=== PATIENT | female | born 1990 | race Caucasian/White ===

== ENCOUNTER 2022-10-09 13:13 | Emergency (ER) | payer OTHER, SELFPAY ==
[2022-10-09 13:20] VITALS: BP 133/91; PULSE 76; RESP 20; TEMP 36.8; O2SAT 96; BMI 36.6
--- NOTE | 2022-10-09 13:52 | ED.GENADUL1 ---
HPI - General Adult General Chief complaint: Seizure Stated complaint: SEIZURE Time Seen by Provider: 10/09/22 13:48 Source: patient Mode of arrival: ambulance Limitations: no limitations History of Present Illness HPI narrative: patient was anxious today. She said that she is under a lot of stress She was driving home from work when her anxiety increased. She became dizzy. She pulled to the side of the road and then, according to bystander, had a 3 minute episode of seizure-like activity. PMHx includes pseudoseizures. She only takes Xanax and does not take any anti-seizure medications. At this time she admits to just kind of feeling shaky . She denied injuring her head, neck or back. She denied any nausea or vomiting. No recent illness. She said that she frequently gets UTIs without symptoms and asked that her urine be checked. Related Data Allergies Allergy/AdvReac Type Severity Reaction Status Date / Time nitrofurantoin Allergy Severe itching Verified 10/09/22 13:35 [From Macrobid] azithromycin [From Zithromax] Allergy Unknown Verified 10/09/22 13:20 ciprofloxacin [From Cipro] Allergy Unknown Verified 10/09/22 13:20 ketorolac [From Toradol] Allergy Unknown Verified 10/09/22 13:20 lorazepam [From Ativan] Allergy Unknown Verified 10/09/22 13:20 metoclopramide [From Reglan] Allergy Unknown Verified 10/09/22 13:20 Penicillins Allergy Unknown Verified 10/09/22 13:20 lorazepam AdvReac Severe irritable Uncoded 10/09/22 13:35 mood [facility] Medical History (Updated 10/09/22 @ 14:18 by Gaudencio Martinez) Surgical History (Updated 10/09/22 @ 14:07 by Joel Blanchard) Social History Smoking status: Never smoker Exam Narrative Exam Narrative: Nurses notes and vital signs reviewed and patient is not hypoxic. afebrile General: Well-appearing and in no apparent distress. Skin: Warm, dry, no pallor noted. No rash. Head: Normocephalic, atraumatic. Eye: Pupils are equal, round and EOMI. No scleral icterus. Cardiovascular: Regular Rate and Rhythm without murmur, gallop or rub. Respiratory: No accessory muscle use or respiratory distress. Lungs are clear to auscultation, no wheezing, rales or rhonchi Back: No midline thoracic or lumbar vertebral tenderness. No CVA tenderness Musculoskeletal: normal ROM, no sign of long bone fracture GI: Abdomen is soft, non-distended. Normal bowel sounds. No tenderness to palpation. No rebound, guarding, or rigidity noted. Neurological: A&O x4. No cranial nerve dysfunction observed. No truncal ataxia. Moves all extremities. Sensation intact. Psychiatric: Cooperative and interactive. Normal mood and affect. Constitutional Vital Signs - 24 hr 10/09/22 13:20 Temperature 98.3 F Pulse Rate [Monitor] 76 Respiratory Rate 20 Blood Pressure [Right Arm] 133/91 H Pulse Oximetry 96 Oxygen Delivery Method Room Air Course Vital Signs Vital signs: Vital Signs Temperature 98.3 F 10/09/22 13:20 Pulse Rate 76 10/09/22 13:20 Respiratory Rate 20 10/09/22 13:20 Blood Pressure 133/91 H 10/09/22 13:20 Pulse Oximetry 96 10/09/22 13:20 Oxygen Delivery Method Room Air 10/09/22 13:20 Temperature 98.3 F 10/09/22 13:20 Pulse Rate 76 10/09/22 13:20 Respiratory Rate 20 10/09/22 13:20 Blood Pressure 133/91 H 10/09/22 13:20 Pulse Oximetry 96 10/09/22 13:20 Oxygen Delivery Method Room Air 10/09/22 13:20 Medical Decision Making MDM Narrative Medical decision making narrative: seizure precautions were initiated while the patient was in the ED. Urine was collected and sent for testing. It was negative for infection. She was discharged home and can see her PCP for follow up as needed or return to the ED for any worrisome symptoms. She has xanax for her anxiety Lab Data Lab results reviewed: Yes I reviewed the patient's lab results Labs: Lab Results 10/09/22 Range/Units 13:50 Urine Color Lt. yellow (YELLOW) Urine Clarity Clear (CLEAR) Urine pH 6.5 (5.0-9.0) Ur Specific [place] <=1.005 A (1.005-1.025) Urine Protein Negative (NEG/TRACE) mg/dL Urine Glucose (UA) Negative (NEGATIVE) mg/dL Urine Ketones Negative (NEGATIVE) mg/dL Urine Occult Blood Negative (NEGATIVE) Urine Nitrite Negative (NEGATIVE) Urine Bilirubin Negative (NEGATIVE) Urine Urobilinogen 0.2 (0.2-1.0) EU/dL Ur Leukocyte Esterase Negative (NEGATIVE) Urine HCG, Qual Negative (NEGATIVE) Discharge Plan Discharge Chief Complaint: Seizure Clinical Impression: Psychogenic nonepileptic seizure, Anxiety Patient Disposition: Home, Self-Care Time of Disposition Decision: 14:16 Instructions: Anxiety (ED) Stand Alone Forms: Portal Instructions Referrals: MARIO GUAMAN [Primary Care Provider] - 1 week
[2022-10-09 14:08] LABS: Bilirubin Urine NEGATIVE (NEGATIVE); Blood Urine NEGATIVE (NEGATIVE); Clarity Urine CLEAR (CLEAR); Color Urine LT. YELLOW (YELLOW); Glucose Urine UA NEGATIVE (NEGATIVE); Ketones Urine NEGATIVE (NEGATIVE); Leukocyte Esterase Urine NEGATIVE (NEGATIVE); Nitrite Urine NEGATIVE (NEGATIVE); Protein Urine NEGATIVE (NEG/TRACE); Specific Gravity Urine <=1.005 (1.005-1.025); Urine Microscopic Indicated NO; Urobilinogen Urine 0.2 EU/dL (0.2-1.0); pH Urine 6.5 (5.0-9.0)
[2022-10-09 14:10] LABS: HCG Qualitative Urine* NEGATIVE (NEGATIVE)
[2022-10-09 14:26] VITALS: BP 128/86; PULSE 74; RESP 17; O2SAT 100
== END 2022-10-09 14:36 | disposition home or self-care (01) ==
PROVIDERS: Emergency Provider Emergency Medicine; PCP Family Medicine
DX: F41.9 Anxiety disorder, unspecified (principal); R56.9 Unspecified convulsions; Z87.440 Personal history of urinary (tract) infections; Z79.899 Other long term (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 therapy
CPT/HCPCS: 81003; 84703; 99283

== ENCOUNTER 2022-11-17 19:36 | Emergency (ER) | payer OTHER, SELFPAY ==
[2022-11-17 19:39] VITALS: BP 132/98; PULSE 76; RESP 16; TEMP 36.6; O2SAT 98; BMI 37.6
--- NOTE | 2022-11-17 19:54 | CT_ITS ---
[address] [address] Patient Name: TICO ENRIQUEZ MRN: [id number] date: 1990 Sex: F Assigned Patient Location: ER Current Patient Location: ER Accession/Order Number: [id number] Exam Date: 11/17/2022 20:23 Report Date: 11/17/2022 21:36 At the request of: JENIFER JACKSON Procedure: CT abdomen pelvis wo con CT SCAN OF THE ABDOMEN AND PELVIS WITHOUT CONTRAST, 11/17/2022 8:23 PM EDT COMPARISON: Scan of the abdomen and pelvis, 06/17/2021. CLINICAL HISTORY: right flank pain, right lower quadrant history of stones. TECHNIQUE: 3 mm axial images performed through the abdomen and pelvis without contrast. 3 mm sagittal and coronal MPR reconstructions performed. Dose reduction techniques were achieved by using automated exposure control and/or adjustment of mA and/or kV according to patient size and/or use of iterative reconstruction technique. ABDOMINAL CT SCAN FINDINGS: Lung bases are clear. Visualized heart is normal in size with no pericardial effusion. No renal or ureteral calculi identified. There is some mild right pelvicalyceal dilatation. Remaining nonenhanced abdominal solid organs and gallbladder unremarkable in appearance. Moderate to large amount of fecal matter in the colon bordering on early pattern of constipation. Retrocecal appendix is normal. Pelvic CT findings: Patient has had a hysterectomy since the prior exam. Some physiologic free fluid in the rectovesicular pouch. Urinary bladder is unremarkable in appearance. No acute osseous abnormality. CT/CT abdomen pelvis wo con IMPRESSION: 1. No renal or ureteral calculi identified. Mild right pelvicalyceal dilatation may be a transient phenomena. 2. Moderate to large amount of fecal matter in the colon bordering on early pattern of constipation. Retrocecal appendix is normal. 3. Patient has had hysterectomy since the prior exam. Some physiologic free fluid in the rectovesicular pouch. Electronically authenticated by: Chalo VELAZQUEZ Date: 11/17/2022 21:36
--- NOTE | 2022-11-17 19:56 | ED.GENADUL1 ---
Documented by User: SIVAN Pedro 11/17/22 20:39 HPI - General Adult General Chief complaint: Abdominal Pain Stated complaint: flank pain Time Seen by Provider: 11/17/22 19:43 Source: patient Mode of arrival: walk-in History of Present Illness HPI narrative: patient is a 32-year-old female presents to the Emergency Room with concerns of right flank pain and right lower quadrant abdominal pain. Patient states symptoms started two weeks ago, progressively worsening. Throbbing aching diffuse across her right mid back and right lower quadrant. Patient notes the pain radiates around to the front associated with nausea. Patient states she has had prior hysterectomy and denies chance of . She denies any vaginal discharge or dysuria other than some frequency. Patient states she has prior history of kidney stones,kidney infection prior nephrostomy tube, and ovarian cysts. Patient notes that she still has her appendix as well. She denies any fevers or chills but has been using a heating pad on her lower back to the point that the skin is now ecchymotic. Patient had previous treatment with Dr. Chavez regarding kidney stones Onset (ago): week(s) (2) Location: Reports abdomen Radiation: Reports back Pain Consistency: Denies constant Relieving factors: Reports none Related Data Home Medications Medication Instructions Recorded Confirmed alprazolam 2 mg tablet 2 mg PO .2 times a day PRN anxiety 11/17/22 11/17/22 phentermine 37.5 mg tablet 37.5 mg PO QDAY 11/17/22 11/17/22 tizanidine 4 mg tablet 4 mg PO Q12H PRN muscle spasticity 11/17/22 11/17/22 Previous Rx's Medication Instructions Recorded bisacodyl 5 mg tablet,delayed 5 mg PO BID PRN constipation #14 11/17/22 release (Dulcolax (bisacodyl)) tabs pantoprazole 40 mg granules 40 mg PO DAILY 30 days #30 ea 11/17/22 delayed-release for susp in packet Allergies Allergy/AdvReac Type Severity Reaction Status Date / Time nitrofurantoin Allergy Severe itching Verified 10/09/22 13:35 [From Macrobid] azithromycin [From Zithromax] Allergy Unknown Verified 10/09/22 13:20 ciprofloxacin [From Cipro] Allergy Unknown Verified 10/09/22 13:20 ketorolac [From Toradol] Allergy Unknown Verified 10/09/22 13:20 lorazepam [From Ativan] Allergy Unknown Verified 10/09/22 13:20 metoclopramide [From Reglan] Allergy Unknown Verified 10/09/22 13:20 Penicillins Allergy Unknown Verified 10/09/22 13:20 lorazepam AdvReac Severe irritable Uncoded 10/09/22 13:35 mood Review of Systems ROS Constitutional Denies: fever or chills Ears, nose, mouth, and throat Denies: throat pain Cardiovascular Denies: chest pain Respiratory Denies: shortness of breath or cough Gastrointestinal Reports: abdominal pain and nausea; Denies: vomiting Genitourinary Reports: urinary frequency Musculoskeletal Reports: back pain; Denies: neck pain or extremity pain Neurological Denies: headache Psychiatric Denies: anxiety Endocrine Denies: excessive urination [facility] Medical History (Updated 11/17/22 @ 22:13 by Aminata Collins MD) Surgical History (Updated 10/09/22 @ 14:07 by Joel Blanchard) Social History Smoking status: Never smoker Exam Narrative Exam Narrative: Nurses notes and vital signs reviewed and patient is not hypoxic. General: The patient appears well and in no apparent distress. Skin: Warm, dry, no pallor noted.ecchymotic changes to her lower back from self-admitted overuse of heating pad. Remote scar from right nephrostomy tube noted Head: Normocephalic, atraumatic Neck: Supple, trachea mid-line, no tenderness, no lymphadenopathy Eye: Pupils are equal, round and reactive to light, EOMI Ears, Nose, Mouth, and Throat: TM are clear, normal light reflex, oral mucosa is moist, no posterior oropharynx erythema or hypertrophy, uvula is mid-line Cardiovascular: Regular Rate and Rhythm Respiratory: Patient is in no distress, no accessory muscle use, lungs are clear to auscultation, no wheezing, rales or rhonchi. Chest Wall: no tenderness Back: mild diffuse lower lumbar tenderness with notable right CVA tenderness Musculoskeletal: normal ROM, no tenderness, no swelling GI: bowel sounds present, no guarding or rebound but tenderness appreciated in the right mid and right lower quadrant. Patient does have some tenderness at McBurney's point. Neurological: A&O x4 Psychiatric: Cooperative Constitutional Vital Signs, click to edit/add: Last Vital Signs Temp 97.9 F 11/17/22 19:39 Pulse 68 11/17/22 22:23 Resp 16 11/17/22 22:23 BP 138/88 11/17/22 22:23 Pulse Ox 99 11/17/22 22:23 O2 Del Method Room Air 11/17/22 22:23 Course Vital Signs Vital signs: Vital Signs Temperature 97.9 F 11/17/22 19:39 Pulse Rate 76 11/17/22 19:39 Respiratory Rate 16 11/17/22 19:39 Blood Pressure 132/98 H 11/17/22 19:39 Pulse Oximetry 98 11/17/22 19:39 Oxygen Delivery Method Room Air 11/17/22 19:39 Temperature 97.9 F 11/17/22 19:39 Pulse Rate 68 11/17/22 22:23 Respiratory Rate 16 11/17/22 22:23 Blood Pressure 138/88 11/17/22 22:23 Pulse Oximetry 99 11/17/22 22:23 Oxygen Delivery Method Room Air 11/17/22 22:23 Medical Decision Making MDM Narrative Medical decision making narrative: discussed patient's presentation, concern for right flank pain, progressive symptoms over two weeks and patient's prior history of surgery, kidney stones and kidney infection. Patient has multiple antibiotic ALLERGIES. Risks and benefits of CT discussed and patient agreeable. Patient given 4 mg IV Zofran and 4 mg IV morphine. Lab Data Labs: Lab Results 11/17/22 Range/Units 20:24 WBC 6.7 (4.0-11.0) 10^3/uL RBC 4.36 (4.20-5.40) 10^6/uL Hgb 13.8 (12.0-16.0) g/dL Hct 41.0 (36.0-48.0) % MCV 94.0 (81.0-99.0) fL MCH 31.7 (26.7-34.0) pg MCHC 33.7 (29.9-35.2) g/dL RDW 12.0 (11.0-15.0) % Plt Count 184 (150-450) 10^3/uL MPV 10.8 (9.5-13.5) fL Neut % (Auto) 41.7 L (43.0-75.0) % Lymph % (Auto) 47.4 (20.5-60.0) % Cassia % (Auto) 8.5 (1.7-12.0) % Eos % (Auto) 1.6 (0.9-7.0) % Baso % (Auto) 0.7 (0.2-2.0) % Neut # (Auto) 2.8 (1.4-6.5) 10^3/uL Lymph # (Auto) 3.2 (1.2-3.8) 10^3/uL Cassia # (Auto) 0.6 (0.3-0.8) 10^3/uL Eos # (Auto) 0.1 (0.0-0.7) 10^3/uL Baso # (Auto) 0.1 (0.0-0.1) 10^3/uL Abs Immat Gran (auto) 0.01 (0.00-0.03) 10^3/uL Imm/Tot Granulo (auto) 0.1 (0.0-0.5) % Sodium 140 (136-145) mmol/L Potassium 3.4 L (3.5-5.1) mmol/L Chloride 103 (98-107) mmol/L Carbon Dioxide 23.7 (21.0-32.0) mmol/L Anion Gap 16.7 BUN 9.0 (7.0-18.0) mg/dL Creatinine 0.99 (0.55-1.02) mg/dL Est GFR ( Amer) >60 (>=60) Est GFR (Non-Af Amer) >60 (>=60) BUN/Creatinine Ratio 9.1 Glucose 105 (74-106) mg/dL Lactate 0.9 (0.4-2.0) mmol/L Calcium 8.5 (8.5-10.1) mg/dL Total Bilirubin 0.2 (0.2-1.0) mg/dL AST 12 L (15-37) U/L ALT 32 (14-59) U/L Alkaline Phosphatase 54 (46-116) U/L Total Protein 7.8 (6.4-8.2) g/dL Albumin 4.0 (3.4-5.0) g/dL Globulin 3.8 g/dL Albumin/Globulin Ratio 1.1 Lipase 76.0 (73.0-393.0) U/L Urine Color Yellow (YELLOW) Urine Clarity Clear (CLEAR) Urine pH 6.0 (5.0-9.0) Ur Specific [place] 1.025 (1.005-1.025) Urine Protein Negative (NEG/TRACE) mg/dL Urine Glucose (UA) Negative (NEGATIVE) mg/dL Urine Ketones Negative (NEGATIVE) mg/dL Urine Occult Blood Negative (NEGATIVE) Urine Nitrite Negative (NEGATIVE) Urine Bilirubin Negative (NEGATIVE) Urine Urobilinogen 0.2 (0.2-1.0) EU/dL Ur Leukocyte Esterase Negative (NEGATIVE) Discharge Plan Discharge Chief Complaint: Abdominal Pain Clinical Impression: Acute abdominal pain in right flank, Constipation Patient Disposition: Home, Self-Care Time of Disposition Decision: 22:12 Prescriptions / Home Meds: New pantoprazole [address] for susp in packet 40 mg PO DAILY 30 Days Qty: 30 0RF bisacodyl [Dulcolax (bisacodyl)] 5 mg tablet,delayed release (DR/EC) 5 mg PO BID PRN (Reason: constipation) Qty: 14 0RF No Action phentermine 37.5 mg tablet 37.5 mg PO QDAY alprazolam 2 mg tablet 2 mg PO .2 times a day PRN (Reason: anxiety) tizanidine 4 mg tablet 4 mg PO Q12H PRN (Reason: muscle spasticity) Instructions: Constipation (ED) Stand Alone Forms: Portal Instructions Referrals: MARIO GUAMAN [Primary Care Provider] - 1 week Discharge Date/Time: 11/17/22 22:26 Documented by User: Aminata Collins MD 11/17/22 22:40 HPI - General Adult General Chief complaint: Abdominal Pain Stated complaint: flank pain Time Seen by Provider: 11/17/22 19:43 Related Data Home Medications Medication Instructions Recorded Confirmed alprazolam 2 mg tablet 2 mg PO .2 times a day PRN anxiety 11/17/22 11/17/22 phentermine 37.5 mg tablet 37.5 mg PO QDAY 11/17/22 11/17/22 tizanidine 4 mg tablet 4 mg PO Q12H PRN muscle spasticity 11/17/22 11/17/22 Previous Rx's Medication Instructions Recorded bisacodyl 5 mg tablet,delayed 5 mg PO BID PRN constipation #14 11/17/22 release (Dulcolax (bisacodyl)) tabs pantoprazole 40 mg granules 40 mg PO DAILY 30 days #30 ea 11/17/22 delayed-release for susp in packet Allergies Allergy/AdvReac Type Severity Reaction Status Date / Time nitrofurantoin Allergy Severe itching Verified 10/09/22 13:35 [From Macrobid] azithromycin [From Zithromax] Allergy Unknown Verified 10/09/22 13:20 ciprofloxacin [From Cipro] Allergy Unknown Verified 10/09/22 13:20 ketorolac [From Toradol] Allergy Unknown Verified 10/09/22 13:20 lorazepam [From Ativan] Allergy Unknown Verified 10/09/22 13:20 metoclopramide [From Reglan] Allergy Unknown Verified 10/09/22 13:20 Penicillins Allergy Unknown Verified 10/09/22 13:20 lorazepam AdvReac Severe irritable Uncoded 10/09/22 13:35 mood [facility] Medical History (Updated 11/17/22 @ 22:13 by Aminata Collins MD) Surgical History (Updated 10/09/22 @ 14:07 by Joel Blanchard) Social History Smoking status: Never smoker Exam Constitutional Vital Signs, click to edit/add: Last Vital Signs Temp 97.9 F 11/17/22 19:39 Pulse 68 11/17/22 22:23 Resp 16 11/17/22 22:23 BP 138/88 11/17/22 22:23 Pulse Ox 99 11/17/22 22:23 O2 Del Method Room Air 11/17/22 22:23 Course Vital Signs Vital signs: Vital Signs Temperature 97.9 F 11/17/22 19:39 Pulse Rate 76 11/17/22 19:39 Respiratory Rate 16 11/17/22 19:39 Blood Pressure 132/98 H 11/17/22 19:39 Pulse Oximetry 98 11/17/22 19:39 Oxygen Delivery Method Room Air 11/17/22 19:39 Temperature 97.9 F 11/17/22 19:39 Pulse Rate 68 11/17/22 22:23 Respiratory Rate 16 11/17/22 22:23 Blood Pressure 138/88 11/17/22 22:23 Pulse Oximetry 99 11/17/22 22:23 Oxygen Delivery Method Room Air 11/17/22 22:23 Medical Decision Making MDM Narrative Medical decision making narrative: discussed patient's presentation, concern for right flank pain, progressive symptoms over two weeks and patient's prior history of surgery, kidney stones and kidney infection. Patient has multiple antibiotic ALLERGIES. Risks and benefits of CT discussed and patient agreeable. Patient given 4 mg IV Zofran and [address] Collins : The patient CAT scan shows only constipation with moderate to large amount of stool and appendix was normal in addition to no kidney stone Right now the patient was still complaining of nausea and vomiting she mentioned that she has been having the pain for 2 weeks and she been having normal diet The patient is allergic to a lot of medication she added Toradol and Bentyl to the allergies although they were not mentioned initially The patient was treated with Pepcid as well as Compazine in the ER and tramadol 1 pill after reviewing her opiate intake The patient right now was discharged home with Dulcolax as well as pantoprazole instructed to hydrate very well and to come back to us in case of any new symptoms and to follow-up with her primary care doctor within 2 days and the patient agree with above-mentioned plan and The patient is to follow up with primary care physician in next 2-3 days or to return to the emergency department should any of the signs or symptoms worsen or new symptoms develop. The patient agrees with the following Diagnosis and Treatment plan and the patient will be discharged home. Lab Data Labs: Lab Results 11/17/22 Range/Units 20:24 WBC 6.7 (4.0-11.0) 10^3/uL RBC 4.36 (4.20-5.40) 10^6/uL Hgb 13.8 (12.0-16.0) g/dL Hct 41.0 (36.0-48.0) % MCV 94.0 (81.0-99.0) fL MCH 31.7 (26.7-34.0) pg MCHC 33.7 (29.9-35.2) g/dL RDW 12.0 (11.0-15.0) % Plt Count 184 (150-450) 10^3/uL MPV 10.8 (9.5-13.5) fL Neut % (Auto) 41.7 L (43.0-75.0) % Lymph % (Auto) 47.4 (20.5-60.0) % Cassia % (Auto) 8.5 (1.7-12.0) % Eos % (Auto) 1.6 (0.9-7.0) % Baso % (Auto) 0.7 (0.2-2.0) % Neut # (Auto) 2.8 (1.4-6.5) 10^3/uL Lymph # (Auto) 3.2 (1.2-3.8) 10^3/uL Cassia # (Auto) 0.6 (0.3-0.8) 10^3/uL Eos # (Auto) 0.1 (0.0-0.7) 10^3/uL Baso # (Auto) 0.1 (0.0-0.1) 10^3/uL Abs Immat Gran (auto) 0.01 (0.00-0.03) 10^3/uL Imm/Tot Granulo (auto) 0.1 (0.0-0.5) % Sodium 140 (136-145) mmol/L Potassium 3.4 L (3.5-5.1) mmol/L Chloride 103 (98-107) mmol/L Carbon Dioxide 23.7 (21.0-32.0) mmol/L Anion Gap 16.7 BUN 9.0 (7.0-18.0) mg/dL Creatinine 0.99 (0.55-1.02) mg/dL Est GFR ( Amer) >60 (>=60) Est GFR (Non-Af Amer) >60 (>=60) BUN/Creatinine Ratio 9.1 Glucose 105 (74-106) mg/dL Lactate 0.9 (0.4-2.0) mmol/L Calcium 8.5 (8.5-10.1) mg/dL Total Bilirubin 0.2 (0.2-1.0) mg/dL AST 12 L (15-37) U/L ALT 32 (14-59) U/L Alkaline Phosphatase 54 (46-116) U/L Total Protein 7.8 (6.4-8.2) g/dL Albumin 4.0 (3.4-5.0) g/dL Globulin 3.8 g/dL Albumin/Globulin Ratio 1.1 Lipase 76.0 (73.0-393.0) U/L Urine Color Yellow (YELLOW) Urine Clarity Clear (CLEAR) Urine pH 6.0 (5.0-9.0) Ur Specific [place] 1.025 (1.005-1.025) Urine Protein Negative (NEG/TRACE) mg/dL Urine Glucose (UA) Negative (NEGATIVE) mg/dL Urine Ketones Negative (NEGATIVE) mg/dL Urine Occult Blood Negative (NEGATIVE) Urine Nitrite Negative (NEGATIVE) Urine Bilirubin Negative (NEGATIVE) Urine Urobilinogen 0.2 (0.2-1.0) EU/dL Ur Leukocyte Esterase Negative (NEGATIVE) Discharge Plan Discharge Chief Complaint: Abdominal Pain Clinical Impression: Acute abdominal pain in right flank, Constipation Patient Disposition: Home, Self-Care Time of Disposition Decision: 22:12 Prescriptions / Home Meds: New pantoprazole [address] for susp in packet 40 mg PO DAILY 30 Days Qty: 30 0RF bisacodyl [Dulcolax (bisacodyl)] 5 mg tablet,delayed release (DR/EC) 5 mg PO BID PRN (Reason: constipation) Qty: 14 0RF No Action phentermine 37.5 mg tablet 37.5 mg PO QDAY alprazolam 2 mg tablet 2 mg PO .2 times a day PRN (Reason: anxiety) tizanidine 4 mg tablet 4 mg PO Q12H PRN (Reason: muscle spasticity) Instructions: Constipation (ED) Stand Alone Forms: Portal Instructions Referrals: MARIO GUAMAN [Primary Care Provider] - 1 week Discharge Date/Time: 11/17/22 22:26
[2022-11-17] MEDS: MORPHINE SULFATE 2 MG/ML SYRINGE 4 MG IV (20:24)
[2022-11-17] MEDS: 0.9 % SODIUM CHLORIDE 1,000 ML 999 ML IV (20:24)
[2022-11-17] MEDS: ONDANSETRON PF 4 MG/2 ML VIAL IV ×2 (20:25→21:24)
[2022-11-17 20:29] LABS: Bilirubin Urine NEGATIVE (NEGATIVE); Blood Urine NEGATIVE (NEGATIVE); Clarity Urine CLEAR (CLEAR); Color Urine YELLOW (YELLOW); Glucose Urine UA NEGATIVE (NEGATIVE); Ketones Urine NEGATIVE (NEGATIVE); Leukocyte Esterase Urine NEGATIVE (NEGATIVE); Nitrite Urine NEGATIVE (NEGATIVE); Protein Urine NEGATIVE (NEG/TRACE); Specific Gravity Urine 1.025 (1.005-1.025); Urobilinogen Urine 0.2 EU/dL (0.2-1.0)
[2022-11-17 20:31] LABS: Urine Microscopic Indicated NO
[2022-11-17 20:32] LABS: Basophils Absolute Auto 0.1 10^3/uL (0.0-0.1); Basophils Percent Auto 0.7 % (0.2-2.0); Eosinophils Absolute Auto 0.1 10^3/uL (0.0-0.7); Eosinophils Percent Auto 1.6 % (0.9-7.0); Hemoglobin 13.8 g/dL (12.0-16.0); Immature Granulocytes Abs Auto 0.01 10^3/uL (0.00-0.03); Immature Granulocytes Pct Auto 0.1 % (0.0-0.5); Lymphocytes Absolute Auto 3.2 10^3/uL (1.2-3.8); Lymphocytes Percent Auto 47.4 % (20.5-60.0); Mean Corpuscular HGB Conc 33.7 g/dL (29.9-35.2); Mean Corpuscular Hemoglobin 31.7 pg (26.7-34.0); Mean Platelet Volume 10.8 fL (9.5-13.5); Monocytes Absolute Auto 0.6 10^3/uL (0.3-0.8); Monocytes Percent Auto 8.5 % (1.7-12.0); Neutrophils Absolute Auto 2.8 10^3/uL (1.4-6.5); Neutrophils Percent Auto 41.7 % (43.0-75.0); Platelet Count 184 10^3/uL (150-450); Red Blood Count 4.36 10^6/uL (4.20-5.40); White Blood Count 6.7 10^3/uL (4.0-11.0)
[2022-11-17 20:47] LABS: Alanine Aminotransferase 32 U/L (14-59); Albumin Globulin Ratio 1.1; Alkaline Phosphatase 54 U/L (46-116); Anion Gap 16.7; Aspartate Amino Transferase 12 U/L (15-37); BUN Creatinine Ratio 9.1; Bilirubin Total 0.2 mg/dL (0.2-1.0); Calcium 8.5 mg/dL (8.5-10.1); Carbon Dioxide 23.7 mmol/L (21.0-32.0); Chloride 103 mmol/L (98-107); Estimated GFR (African America >60 (>=60); Estimated GFR (Non-African Ame >60 (>=60); Globulin 3.8 g/dL; Glucose 105 mg/dL (74-106); Lactate/Lactic Acid 0.9 mmol/L (0.4-2.0); Potassium 3.4 mmol/L (3.5-5.1); Sodium 140 mmol/L (136-145); Total Protein 7.8 g/dL (6.4-8.2)
[2022-11-17] MEDS: PROCHLORPERAZINE 10 MG/2 ML VIAL 5 MG IV (21:55)
[2022-11-17] MEDS: FAMOTIDINE/PF 20 MG/2 ML VIAL IV (21:55)
[2022-11-17] MEDS: TRAMADOL HCL 50 MG TABLET PO (22:19)
[2022-11-17 22:23] VITALS: BP 138/88; PULSE 68; RESP 16; O2SAT 99
== END 2022-11-17 22:26 | disposition home or self-care (01) ==
PROVIDERS: Personal Emergency Response Attendant; Emergency Provider Emergency Medicine; PCP Family Medicine
DX: R10.9 Unspecified abdominal pain (principal); K59.00 Constipation, unspecified; Z90.710 Acquired absence of both cervix and uterus; Z79.899 Other long term (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 therapy
CPT/HCPCS: 36415; 74176; 80053; 81003; 83605; 83690; 85025; 96374; 96375; 96376; 99285

== ENCOUNTER 2022-11-20 09:10 | Emergency (ER) | payer OTHER, SELFPAY ==
[2022-11-20 09:15] VITALS: BP 140/98; PULSE 84; RESP 20; TEMP 36.7; O2SAT 98; BMI 37.6
--- NOTE | 2022-11-20 09:36 | XR_ITS ---
The [address] [address] Patient Name: TICO ENRIQUEZ MRN: [id number] date: 1990 Sex: F Assigned Patient Location: ER Current Patient Location: ER Accession/Order Number: [id number] Exam Date: 11/20/2022 09:48 Report Date: 11/20/2022 10:08 At the request of: JW HAJI Procedure: XR abdomen min 2V EXAMINATION: XR abdomen min 2V HISTORY: constip ; constipation, left abdominal pain, bladder pressure, increased urination COMPARISON: No relevant comparison available. FINDINGS: BOWEL GAS PATTERN: No abnormal dilation or deviation. No suspicious fluid levels. CALCIFICATIONS: None significant. OTHER: Negative. No abnormal gaseous collections. XR/XR abdomen min 2V IMPRESSION: 1. Normal bowel gas pattern. No suspicious abdominal or pelvic findings. Electronically authenticated by: RICHELLE BUSH Date: 11/20/2022 10:08
[2022-11-20 09:52] LABS: Bilirubin Urine NEGATIVE (NEGATIVE); Blood Urine NEGATIVE (NEGATIVE); Clarity Urine CLEAR (CLEAR); Color Urine LT. YELLOW (YELLOW); Glucose Urine UA NEGATIVE (NEGATIVE); Ketones Urine NEGATIVE (NEGATIVE); Leukocyte Esterase Urine NEGATIVE (NEGATIVE); Nitrite Urine NEGATIVE (NEGATIVE); Protein Urine NEGATIVE (NEG/TRACE); Specific Gravity Urine <=1.005 (1.005-1.025); Urobilinogen Urine 0.2 EU/dL (0.2-1.0)
--- NOTE | 2022-11-20 09:53 | ED_ITS ---
HPI - General Adult General Chief complaint: Abdominal Pain Stated complaint: PAIN ON L SIDE Time Seen by Provider: 11/20/22 09:35 Source: patient Mode of arrival: walk-in Limitations: no limitations History of Present Illness HPI narrative: Patient is a 32-year-old female who is presenting to the Emergency Room today with chief complaint of acute on chronic left lower quadrant and left upper quadrant pain. Patient was just here several days ago and had lab work and x-ray that showed moderate constipation. Patient's lab work showed no acute changes. Patient is complaining of some nausea, no other acute complaints. Patient currently on her menses. Patient is not lightheaded or dizzy. No chest pain or shortness of breath. Patient has not yet had a colonoscopy or EGD. Patient has no other acute complaints at this time. Patient stated she was here in the Emergency Room 3 days ago, patient's been having 2 days of left-sided fullness, pressure, also increase in urinary frequency. All systems are negative except as noted/marked. All systems reviewed and otherwise negative. . Nurses note and vital signs reviewed and patient is not hypoxic. General: The patient appears well and in no apparent distress. Patient is resting comfortably on cart. Patient is not toxic, lethargic, or listless Skin: Warm, dry, no pallor noted. There is no rash noted. No petechiae, purpura. Head: Normocephalic, atraumatic Eye: Normal conjunctiva, no drainage, EOMI. PERRL Ears, Nose, Mouth, and Throat: oral mucosa is moist. Nares patent. Mouth without vesicles. Cardiovascular: Regular Rate and Rhythm, no murmur, gallop, rub Respiratory: Patient is in no distress, no accessory muscle use, lungs are clear to auscultation, no wheezing, rales or rhonchi Back: non-tender, no CVA tenderness bilaterally to percussion. No CT LS midline pain GI: soft, obese, Mild tenderness to palpation to left lower quadrant and left upper quadrant, no flank pain bilateral, no CVA tenderness bilateral. No peritoneal signs, no rash, no suprapubic tenderness to palpation, no tenderness to palpation, no masses appreciated. No rebound, guarding, or rigidity noted. No flank pain bilateral, No distention Musculoskeletal: Patient has full range of motion of all of the extremities, no motor, sensory, or focal neurological deficits Neurological: A&O x3, normal speech Psychiatric: Cooperative Related Data Home Medications Medication Instructions Recorded Confirmed alprazolam 2 mg tablet 2 mg PO .2 times a day PRN anxiety 11/17/22 11/17/22 phentermine 37.5 mg tablet 37.5 mg PO QDAY 11/17/22 11/17/22 tizanidine 4 mg tablet 4 mg PO Q12H PRN muscle spasticity 11/17/22 11/17/22 Previous Rx's Medication Instructions Recorded bisacodyl 5 mg tablet,delayed 5 mg PO BID PRN constipation #14 11/17/22 release (Dulcolax (bisacodyl)) tabs pantoprazole 40 mg granules 40 mg PO DAILY 30 days #30 ea 11/17/22 delayed-release for susp in packet dicyclomine 20 mg tablet 20 mg PO TID PRN abdominal pain #7 11/20/22 tabs ondansetron 4 mg disintegrating 4 mg PO Q4H PRN nausea and 11/20/22 tablet vomiting 3 days #6 tabs promethazine 25 mg rectal 25 mg LA Q6H PRN nausea and 11/20/22 suppository vomiting #6 ea Allergies Allergy/AdvReac Type Severity Reaction Status Date / Time nitrofurantoin Allergy Severe itching Verified 10/09/22 13:35 [From Macrobid] azithromycin [From Zithromax] Allergy Unknown Verified 10/09/22 13:20 ciprofloxacin [From Cipro] Allergy Unknown Verified 10/09/22 13:20 ketorolac [From Toradol] Allergy Unknown Verified 10/09/22 13:20 lorazepam [From Ativan] Allergy Unknown Verified 10/09/22 13:20 metoclopramide [From Reglan] Allergy Unknown Verified 10/09/22 13:20 Penicillins Allergy Unknown Verified 10/09/22 13:20 lorazepam AdvReac Severe irritable Uncoded 10/09/22 13:35 mood [facility] Medical History (Updated 11/20/22 @ 13:09 by Lonny Aparicio MD) Surgical History (Updated 10/09/22 @ 14:07 by Joel Blanchard) Social History Smoking status: Never smoker Exam Constitutional Vital Signs, click to edit/add: Last Vital Signs Temp 98.2 F 11/20/22 12:26 Pulse 87 08/02/23 12:26 Resp 20 11/20/22 12:26 BP 130/85 11/20/22 12:26 Pulse Ox 100 11/20/22 12:26 O2 Del Method Room Air 11/20/22 12:26 Course Vital Signs Vital signs: Vital Signs Temperature 98.1 F 11/20/22 09:15 Pulse Rate 84 11/20/22 09:15 Respiratory Rate 20 11/20/22 09:15 Blood Pressure 140/98 H 11/20/22 09:15 Pulse Oximetry 98 11/20/22 09:15 Oxygen Delivery Method Room Air 11/20/22 09:15 Temperature 98.2 F 11/20/22 12:26 Pulse Rate 87 11/20/22 12:26 Respiratory Rate 20 11/20/22 12:26 Blood Pressure 130/85 11/20/22 12:26 Pulse Oximetry 100 11/20/22 12:26 Oxygen Delivery Method Room Air 11/20/22 12:26 Medical Decision Making MDM Narrative Medical decision making narrative: Patient's urine, , and abdominal x-ray showed no acute findings. A copy of the x-ray was given to the patient. Patient will follow-up with PCP and patient was referred to Dr. Haq. No questions at discharge. Patient looks well. Patient was given prescription for Zofran, Phenergan suppositories, and Bentyl which she's had before. Patient understands importance of following up with gastrointestinal physician or surgeon for scopes or other definitive care. Lab Data Labs: Lab Results 11/20/22 Range/Units 09:40 Urine Color Lt. yellow (YELLOW) Urine Clarity Clear (CLEAR) Urine pH 6.0 (5.0-9.0) Ur Specific [place] <=1.005 A (1.005-1.025) Urine Protein Negative (NEG/TRACE) mg/dL Urine Glucose (UA) Negative (NEGATIVE) mg/dL Urine Ketones Negative (NEGATIVE) mg/dL Urine Occult Blood Negative (NEGATIVE) Urine Nitrite Negative (NEGATIVE) Urine Bilirubin Negative (NEGATIVE) Urine Urobilinogen 0.2 (0.2-1.0) EU/dL Ur Leukocyte Esterase Negative (NEGATIVE) Urine RBC None seen (0-2) #/HPF Urine WBC None seen (NONE SEEN) #/HPF Ur Squamous Epith Cells Few A (NONE/RARE) #/LPF Urine Crystals None seen (None Seen) #/HPF Urine Bacteria None seen (NONE SEEN) #/HPF Urine Casts None seen (NONE SEEN) #/LPF Urine Mucus Trace A (NONE SEEN) Ur Culture Indicated? No Urine HCG, Qual Negative (NEGATIVE) Discharge Plan Discharge Chief Complaint: Abdominal Pain Clinical Impression: Nausea & vomiting, Abdominal pain, Acute left lower quadrant pain Patient Disposition: Home, Self-Care Condition: Good Prescriptions / Home Meds: New promethazine 25 mg suppository 25 mg LA Q6H PRN (Reason: nausea and vomiting) Qty: 6 0RF ondansetron 4 mg tablet,disintegrating 4 mg PO Q4H PRN (Reason: nausea and vomiting) 3 Days Qty: 6 0RF dicyclomine 20 mg tablet 20 mg PO TID PRN (Reason: abdominal pain) Qty: 7 0RF No Action phentermine 37.5 mg tablet 37.5 mg PO QDAY alprazolam 2 mg tablet 2 mg PO .2 times a day PRN (Reason: anxiety) tizanidine 4 mg tablet 4 mg PO Q12H PRN (Reason: muscle spasticity) pantoprazole [address] for susp in packet 40 mg PO DAILY 30 Days Qty: 30 0RF bisacodyl [Dulcolax (bisacodyl)] 5 mg tablet,delayed release (DR/EC) 5 mg PO BID PRN (Reason: constipation) Qty: 14 0RF Instructions: Acute Nausea and Vomiting (DC), Abdominal Pain (ED) Additional Instructions: Continue to increase fluids. Follow-up with PCP for additional testing if needed. You having acute on chronic abdominal pain, please follow up and establish care with Dr. Haq, you may need to have colonoscopy or EGD as needed. Stand Alone Forms: Portal Instructions Referrals: Sumeet Haq MD [Physician] - 1 week MARIO GUAMAN [Primary Care Provider] - 1 week
[2022-11-20 09:55] LABS: HCG Qualitative Urine* NEGATIVE (NEGATIVE)
[2022-11-20 10:01] LABS: Bacteria Urine NONE SEEN #/HPF (NONE SEEN); Crystals Seen? None Seen #/HPF (None Seen); Mucus Urine TRACE (NONE SEEN); RBC Urine NONE SEEN #/HPF (0-2); Squamous Epithelial Cell Urine FEW #/LPF (NONE/RARE); WBC Urine NONE SEEN #/HPF (NONE SEEN)
[2022-11-20 10:02] LABS: Cast Seen? NONE SEEN #/LPF (NONE SEEN); Urine Culture Indicated NO
[2022-11-20] MEDS: DICYCLOMINE HCL 20 MG/2 ML VIAL IM (10:04)
[2022-11-20] MEDS: ONDANSETRON 4 MG RAPDIS TABLET SL (10:04)
[2022-11-20 12:26] VITALS: BP 130/85; PULSE 87; RESP 20; TEMP 36.8; O2SAT 100
== END 2022-11-20 13:18 | disposition home or self-care (01) ==
PROVIDERS: Emergency Provider Emergency Medicine; PCP Family Medicine
DX: R10.32 Left lower quadrant pain (principal); R11.2 Nausea with vomiting, unspecified; E66.9 Obesity, unspecified; Z79.899 Other long term (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 therapy; Z68.37 Body mass index [BMI] 37.0-37.9, adult
CPT/HCPCS: 74019; 81001; 81003; 84703; 96374; 99284; J0500

== ENCOUNTER 2022-12-24 08:09 | Day surgery (SDC) | payer OTHER, SELFPAY ==
--- NOTE | 2022-12-24 08:14 | FL_ITS ---
The [address] [address] Patient Name: TICO ENRIQUEZ MRN: [id number] date: 1990 Sex: F Assigned Patient Location: [place] Current Patient Location: [place] Accession/Order Number: [id number] Exam Date: 12/24/2022 08:30 Report Date: 12/24/2022 10:38 At the request of: HAYDEN KILPATRICK Procedure: [place] voiding cystourethrogram EXAM: [place] voiding cystourethrogram HISTORY: Right Flank Pain R10.9, Hydronephrosis N13.30 COMPARISON: None. TECHNIQUE: Embossed Or Impressed Lettering Painter image prior to catheter insertion. 375 cc infused under gravity drain. The patient was unable to spontaneously void with and without the catheter in place despite waiting for approximately 40 minutes. The patient was allowed to void in the restroom and overhead images taken immediately after FINDINGS: Normal contrast opacification of the urinary bladder. No diverticulum. No ureterovesical reflux [place] voiding cystourethrogram IMPRESSION: No vesicoureteral reflux observed Electronically authenticated by: JASS WELSH Date: 12/24/2022 10:38
--- NOTE | 2022-12-24 10:10 | PC.NURSE ---
0845 16 ku[place]i santana catheter inserted under sterile technique. Noted return of clear yellow urine and bladder emptied for 75 ml. 0900 Began filling bladder with cysto conray for a total of 500 ml. Pt tolerated well. 0910 Pt trying to void on bedpan without success. 0915 d/c santana catheter and pt still trying to void. 0935 Pt unable to void at all during exam and allowed to get up and void on toilet. Pt feels like she emptied fully. 0940 xray taken to examine contrast status. 0945 Pt escorted to hospital exit and enc to f/u with Dr Chavez.
== END 2022-12-24 08:10 | disposition home or self-care (01) ==
LOC: FL 12-25 08:26
PROVIDERS: Radiology Diagnostic Radiology; PCP Family Medicine; Visit Provider Urology
DX: N13.30 Unspecified hydronephrosis (principal); R10.9 Unspecified abdominal pain
CPT/HCPCS: 74455; Q9958

== ENCOUNTER 2023-01-14 12:47 | Outpatient (OUT) | payer OTHER, SELFPAY | END 2023-01-14 12:48 | disposition home or self-care (01) | LOC: PST 12:47 | PROVIDERS: PCP Family Medicine; Visit Provider Surgery | DX: Z01.818 Encounter for other preprocedural examination (principal); R10.84 Generalized abdominal pain; R10.12 Left upper quadrant pain ==

== ENCOUNTER 2023-01-22 06:33 | Day surgery (SDC) | payer OTHER, SELFPAY ==
[2023-01-22 06:58] VITALS: BP 125/78; PULSE 72; RESP 16; TEMP 35.9; O2SAT 96; BMI 37.5
--- NOTE | 2023-01-22 07:08 | PM.GSPRC ---
Date of procedure: 01/22/23 Indications for Procedure: generalized abdominal pain Pre-op diagnosis: generalized abdominal pain/LUQ pain Procedure: colonoscopy with snare polyp mid ascending colon 5 mm Findings: polyp ascending colon Anesthesia: MAC Surgeon: Sumeet Haq Procedure Summary: PROCEDURE: The patient was taken to the Endoscopy Suite, placed in the left lateral recumbent position, given IV sedation as above. A rectal digital exam was performed. The sphincter tone was found to be normal. No rectal masses were appreciated. The Olympus video colonoscope was advanced under direct visualization to the rectum, sigmoid colon, descending colon, transverse colon and ascending colon to the ileocecal valve.Appendiceal lumen was visualized and normal. The underside of the valve was seen. The scope was slowly withdrawn with air being desufflated as it was withdrawn. No gross tumors or diverticula were seen.a small polyp less than 5 mm seen in the mid ascending colon snared snare with hemostasis being maintained and the polyp being retrieved. The scope was then removed from the rest of the colon which was completely normal. The scope was retroflexed on itself. The patient tolerated the procedure well and went to the Recovery Area in satisfactory condition. I recommend the patient use a bulk laxative on a regular basis and follow up as needed.if this is a tubular adenoma would recommend surveillance colonoscopy in five years. If she continues to have left upper quadrant pain and was recommended she have an EGD at a later date.Bowel preparation was excellent. Specimens: colon polyp ascending colon Complications: No Pathology: other (polyp to pathology) Condition: stable Disposition: PACU
[2023-01-22] MEDS: LACTATED RINGER'S SOLUTION 1,000 ML 50 ML IV (07:12)
[2023-01-22 07:52] VITALS: BP 103/69; PULSE 65; RESP 14; TEMP 36.2; O2SAT 98
[2023-01-22 08:07] VITALS: BP 106/62; PULSE 64; RESP 16; O2SAT 99
[2023-01-22 08:20] VITALS: BP 113/70; PULSE 65; RESP 16; O2SAT 99
== END 2023-01-22 08:22 | disposition home or self-care (01) ==
PROVIDERS: PCP Family Medicine; Visit Provider Surgery
PROC: (CPT 00811; principal; 2023-01-22 07:30)
DX: R10.84 Generalized abdominal pain (principal); R10.12 Left upper quadrant pain; K63.5 Polyp of colon; F41.9 Anxiety disorder, unspecified; Z87.442 Personal history of urinary calculi; Z87.440 Personal history of urinary (tract) infections; R56.9 Unspecified convulsions; Z90.710 Acquired absence of both cervix and uterus
CPT/HCPCS: 00811; 45385; 88305; J2704

== ENCOUNTER 2023-04-27 07:41 | Emergency (ER) | payer OTHER, SELFPAY ==
[2023-04-27 07:45] VITALS: BP 123/86; PULSE 99; RESP 20; TEMP 36.8; O2SAT 98; BMI 36.6
--- NOTE | 2023-04-27 07:53 | XR_ITS ---
The [address] [address] Patient Name: TICO ENRIQUEZ MRN: [id number] date: 1990 Sex: F Assigned Patient Location: ER Current Patient Location: ER Accession/Order Number: [id number] Exam Date: 04/27/2023 08:03 Report Date: 04/27/2023 08:17 At the request of: WALLY SELBY Procedure: XR foot LT min 3V EXAM: XR ankle LT min 3V, XR foot LT min 3V HISTORY: injury c/o pain fell down steps COMPARISON: None. TECHNIQUE: Routine views of the XR ankle LT min 3V, XR foot LT min 3V FINDINGS/ XR/XR foot LT min 3V IMPRESSION: 1. Comminuted minimally displaced first proximal phalangeal extra-articular metadiaphyseal fracture. No additional fractures are visualized. Ankle mortise intact. 2. Lateral ankle swelling. 3. Normal joint spacing. Electronically authenticated by: ALESHA KING Date: 04/27/2023 08:17
--- NOTE | 2023-04-27 07:53 | XR_ITS ---
The [address] [address] Patient Name: TICO ENRIQUEZ MRN: [id number] date: 1990 Sex: F Assigned Patient Location: ER Current Patient Location: ER Accession/Order Number: [id number] Exam Date: 04/27/2023 08:03 Report Date: 04/27/2023 08:17 At the request of: WALLY SELBY Procedure: XR ankle LT min 3V EXAM: XR ankle LT min 3V, XR foot LT min 3V HISTORY: injury c/o pain fell down steps COMPARISON: None. TECHNIQUE: Routine views of the XR ankle LT min 3V, XR foot LT min 3V FINDINGS/ XR/XR ankle LT min 3V IMPRESSION: 1. Comminuted minimally displaced first proximal phalangeal extra-articular metadiaphyseal fracture. No additional fractures are visualized. Ankle mortise intact. 2. Lateral ankle swelling. 3. Normal joint spacing. Electronically authenticated by: ALESHA KING Date: 04/27/2023 08:17
--- NOTE | 2023-04-27 07:59 | ED.LOWEXI1 ---
HPI - Extremity Injury (Lower) General Chief Complaint: Extremity Injury, Lower Stated Complaint: LOWER EXTREMITY INJURY LEFT ANKLE Time Seen by Provider: 04/27/23 07:57 Source: patient Mode of arrival: Wheelchair Limitations: no limitations History of Present Illness HPI Narrative: Patient is coming to us with left ankle and foot injury that she sustained yesterday the patient mentioned that she was drinking and she did think of sliding down the stairs when it did not go well and she landed on her left foot. The patient has not been able to put weight on her ankle since yesterday. No other complaints or no other injuries Related Data Home Medications Medication Instructions Recorded Confirmed tizanidine 4 mg tablet 4 mg PO BEDTIME muscle spasticity 11/17/22 01/22/23 alprazolam 1 mg PO BID PRN anxiety 12/24/22 01/22/23 phentermine 37.5 mg PO DAILY 12/24/22 01/22/23 Previous Rx's Medication Instructions Recorded tramadol 50 mg tablet 50 mg PO Q8H PRN pain 3 days #9 04/27/23 tabs Allergies Allergy/AdvReac Type Severity Reaction Status Date / Time nitrofurantoin Allergy Severe itching Verified 12/24/22 09:50 [From Macrobid] azithromycin [From Zithromax] Allergy Unknown Verified 12/24/22 09:50 ciprofloxacin [From Cipro] Allergy Unknown Hives Verified 01/22/23 06:54 ketorolac [From Toradol] Allergy Unknown Verified 12/24/22 09:50 lorazepam [From Ativan] Allergy Unknown Verified 12/24/22 09:50 metoclopramide [From Reglan] Allergy Unknown Verified 12/24/22 09:50 Penicillins Allergy Unknown Verified 12/24/22 09:50 zolpidem [From Ambien] AdvReac agitation Verified 12/24/22 09:50 lorazepam AdvReac Severe irritable Uncoded 12/24/22 09:50 mood Review of Systems ROS Status of ROS 10 or more systems reviewed and unremarkable except as noted in history and below [facility] Medical History (Updated 04/27/23 @ 08:52 by Aminata Collins MD) Kidney stones ?N20.0 - Calculus of kidney (ICD-10) POTS (postural orthostatic tachycardia syndrome) ?G90.A - Postural orthostatic tachycardia syndrome [POTS] (ICD-10) Migraines ?G43.909 - Migraine, unspecified, not intractable, without status migrainosus (ICD-10) Seizure ?R56.9 - Unspecified convulsions (ICD-10) History of anxiety ?Z86.59 - Personal history of other mental and behavioral disorders (ICD-10) History of depression ?Z86.59 - Personal history of other mental and behavioral disorders (ICD-10) History of seizure ?Z87.898 - Personal history of other specified conditions (ICD-10) Surgical History (Updated 01/22/23 @ 06:55 by Xochitl Weaver) History of colonoscopy ?Z98.890 - Other specified postprocedural states (ICD-10) History of nephrostomy History of bunionectomy of right great toe ?Z98.890 - Other specified postprocedural states (ICD-10) H/O LEEP ?Z98.890 - Other specified postprocedural states (ICD-10) S/P laparoscopy ?Z98.890 - Other specified postprocedural states (ICD-10) Hx of cystoscopy ?Z98.890 - Other specified postprocedural states (ICD-10) History of hysterectomy ?Z90.710 - Acquired absence of both cervix and uterus (ICD-10) History of tubal ligation ?Z98.51 - Tubal ligation status (ICD-10) Family History (Updated 01/14/23 @ 12:43 by Soraida Blount) Father Family history of COPD (chronic obstructive pulmonary disease) Family history of cancer Family history of myocardial infarction Social History (Updated 01/22/23 @ 06:57 by Xochitl Weaver) Within the past year, how often did you have a drink containing alcohol: monthly or less Smoking status: Never smoker Non-prescribed substance use: denies use Highest level of school completed/degree received: some college, no degree Exam Narrative Exam Narrative: Nurses notes and vital signs reviewed and patient is not hypoxic. General: Well-appearing and in no apparent distress. Skin: Warm, dry, no pallor noted. No rash. Head: Normocephalic, atraumatic. Neck: Supple, non-tender. Eye: Pupils are equal, round and EOMI. No scleral icterus. Ears, Nose, Mouth, and Throat: TM are clear, no nasal mucosal hypertrophy. Oral mucosa is moist, no posterior oropharynx erythema, uvula is mid-line Cardiovascular: Regular Rate and Rhythm without murmur, gallop or rub. Respiratory: No accessory muscle use or respiratory distress. Lungs are clear to auscultation, no wheezing, rales or rhonchi Chest Wall: no tenderness Back: No midline thoracic or lumbar vertebral tenderness. No CVA tenderness Musculoskeletal: There is significant edema of the left ankle mostly the lateral malleolus as well as the foot itself and there is tenderness upon palpation of the first second and third toes there is no capillary refill abnormality and no vascular injury suspected GI: Abdomen is soft, non-distended. Normal bowel sounds. No masses appreciated. No tenderness to palpation. No rebound, guarding, or rigidity noted. Neurological: A&O x4. No cranial nerve dysfunction observed. No truncal ataxia. Moves all extremities. Sensation intact. Psychiatric: Cooperative and interactive. Normal mood and affect. Constitutional Vital Signs, click to edit/add: Last Vital Signs Temp 98.3 F 04/27/23 07:45 Pulse 99 H 04/27/23 07:45 Resp 04/27/23 07:45 BP 123/86 04/27/23 07:45 Pulse Ox 98 04/27/23 07:45 O2 Del Method Room Air 04/27/23 07:45 Course Vital Signs Vital signs: Vital Signs Temperature 98.3 F 04/27/23 07:45 Pulse Rate 99 H 04/27/23 07:45 Respiratory Rate 20 04/27/23 07:45 Blood Pressure 123/86 04/27/23 07:45 Pulse Oximetry 98 04/27/23 07:45 Oxygen Delivery Method Room Air 04/27/23 07:45 Temperature 98.3 F 04/27/23 07:45 Pulse Rate 99 H 04/27/23 07:45 Respiratory Rate 20 04/27/23 07:45 Blood Pressure 123/86 04/27/23 07:45 Pulse Oximetry 98 04/27/23 07:45 Oxygen Delivery Method Room Air 04/27/23 07:45 MDM - Extremity Injury (Lower) MDM Narrative Medical decision making narrative: X-ray of the ankle showed no acute significant pathology but x-ray of the foot shows a comminuted mildly displaced fracture to the proximal phalanx right now the patient had a megan tape applied in addition to [place] dressing and she was referred to the podiatry as outpatient Right now the patient will stay nonweightbearing with tramadol provided for pain management she also was instructed about the importance of monitoring her symptoms regarding using Ativan and tramadol and avoiding using them together as she is supposed to use only Ativan at night not tramadol. The patient is to follow up with primary care physician in next 2-3 days or to return to the emergency department should any of the signs or symptoms worsen or new symptoms develop. The patient agrees with the following Diagnosis and Treatment plan and the patient will be discharged home. Discharge Plan Discharge Chief Complaint: Extremity Injury, Lower Clinical Impression: Ankle sprain Qualifiers: Encounter type: initial encounter Involved ligament of ankle: unspecified ligament Laterality: left Qualified Code(s): S93.402A - Sprain of unspecified ligament of left ankle, initial encounter Fracture of toe Qualifiers: Encounter type: initial encounter Toe: great toe Fracture type: closed Phalanx: proximal Fracture alignment: displaced Laterality: left Qualified Code(s): S92.412A - Displaced fracture of proximal phalanx of left great toe, initial encounter for closed fracture Patient Disposition: Home, Self-Care Time of Disposition Decision: 08:49 Condition: Good Prescriptions / Home Meds: New tramadol 50 mg tablet 50 mg PO Q8H PRN (Reason: pain) 3 Days Qty: 9 0RF No Action tizanidine 4 mg tablet 4 mg PO BEDTIME alprazolam [Xanax] 1 mg PO BID PRN (Reason: anxiety) phentermine [Adipex-P] 37.5 mg PO DAILY Instructions: Ankle Sprain (DC), Toe Fracture (ED), Foot Fracture in Adults (ED) Stand Alone Forms: Portal Instructions Referrals: Conrado Chris DPM [Physician] - As soon as possible MARIO GUAMAN [Primary Care Provider] - 1 week
[2023-04-27] MEDS: TRAMADOL HCL 50 MG TABLET PO (08:07)
== END 2023-04-27 09:13 | disposition home or self-care (01) ==
PROVIDERS: Emergency Provider Emergency Medicine; PCP Family Medicine
DX: S93.402A Sprain of unspecified ligament of left ankle, initial encounter (principal); S92.412A Displaced fracture of proximal phalanx of left great toe, initial encounter for closed fracture; W10.9XXA Fall (on) (from) unspecified stairs and steps, initial encounter; G90.A Postural orthostatic tachycardia syndrome [POTS]; Z87.442 Personal history of urinary calculi; Z86.59 Personal history of other mental and behavioral disorders; Z98.890 Other specified postprocedural states; Z79.899 Other long term (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 therapy; Z90.710 Acquired absence of both cervix and uterus
CPT/HCPCS: 73610; 73630; 99284

== ENCOUNTER 2023-04-29 09:52 | Outpatient (OUT) | payer OTHER, SELFPAY ==
--- NOTE | 2023-04-29 | XR_ITS ---
The [address] [address] Patient Name: TICO ENRIQUEZ MRN: [id number] date: 1990 Sex: F Assigned Patient Location: [facility] Current Patient Location: [facility] Accession/Order Number: [id number] Exam Date: 04/29/2023 10:10 Report Date: 04/29/2023 11:39 At the request of: SHAKIR ANDERSON Procedure: XR ankle LT min 3V EXAM: XR ankle LT min 3V, XR foot LT min 3V HISTORY: LEFT ANKLE PAIN left foot pain, injury on 04/26/2023 COMPARISON: Left ankle and left foot studies dated 04/27/2023. TECHNIQUE: 3 views of the left ankle were obtained. FINDINGS: Ankle mortise appears grossly intact. Essentially undisplaced transverse fracture of the tip of the distal fibula is not as well suggested on previous study. No obvious distal tibial fracture. Moderate soft tissue swelling laterally. Mild soft tissue swelling medially. 3 views of the left foot were obtained. FINDINGS: Essentially undisplaced fracture of the distal fibula again suggested. Comminuted fracture of the mid and distal portions of the proximal phalanx of the great toe with oblique fracture lines identified similar to prior study. Fracture is essentially undisplaced. Fracture extends to the articular surface of the interphalangeal joint. No evidence of dislocation. Overlying gauze at the levels of the first and second toes. Minimal degenerative change about the interphalangeal joints and first metatarsophalangeal joint. [id number] soft tissue swelling of the great toe. XR/XR ankle LT min 3V IMPRESSION: Left ankle study demonstrates essentially undisplaced fracture of the tip of the distal fibula. Left foot study demonstrates essentially undisplaced comminuted fracture of the proximal phalanx of the great toe similar to the prior study. Follow-up as needed. Electronically authenticated by: JO KISER Date: 04/29/2023 11:39
--- NOTE | 2023-04-29 | XR_ITS ---
The [address] [address] Patient Name: TICO ENRIQUEZ MRN: [id number] date: 1990 Sex: F Assigned Patient Location: [facility] Current Patient Location: [facility] Accession/Order Number: [id number] Exam Date: 04/29/2023 10:10 Report Date: 04/29/2023 11:39 At the request of: SHAKIR ANDERSON Procedure: XR foot LT min 3V EXAM: XR ankle LT min 3V, XR foot LT min 3V HISTORY: LEFT ANKLE PAIN left foot pain, injury on 04/26/2023 COMPARISON: Left ankle and left foot studies dated 04/27/2023. TECHNIQUE: 3 views of the left ankle were obtained. FINDINGS: Ankle mortise appears grossly intact. Essentially undisplaced transverse fracture of the tip of the distal fibula is not as well suggested on previous study. No obvious distal tibial fracture. Moderate soft tissue swelling laterally. Mild soft tissue swelling medially. 3 views of the left foot were obtained. FINDINGS: Essentially undisplaced fracture of the distal fibula again suggested. Comminuted fracture of the mid and distal portions of the proximal phalanx of the great toe with oblique fracture lines identified similar to prior study. Fracture is essentially undisplaced. Fracture extends to the articular surface of the interphalangeal joint. No evidence of dislocation. Overlying gauze at the levels of the first and second toes. Minimal degenerative change about the interphalangeal joints and first metatarsophalangeal joint. Dtaa-in-qfxgnonx soft tissue swelling of the great toe. XR/XR foot LT min 3V IMPRESSION: Left ankle study demonstrates essentially undisplaced fracture of the tip of the distal fibula. Left foot study demonstrates essentially undisplaced comminuted fracture of the proximal phalanx of the great toe similar to the prior study. Follow-up as needed. Electronically authenticated by: JO KISER Date: 04/29/2023 11:39
--- OUTSIDE RECORDS SUMMARY | 2023-04-29 10:06 | XMS_ITS | CCD ---
Author Name Unknown Address [address] [place] [address] Organization [facility] Care Team Providers Care Gallery Intern Name Role Phone MARIO GLASGOW Primary Care Physician Carol Ann Chacon Unavailable Unavailable Pee Mario Unavailable Vi Benites Unavailable Pee, DO Mario Morton Primary Care Provider DO Rell Garcia Attending Provider [phone] DO Arun Ervin Emergency Provider [phone] Pee, DO Mario Cullen. Attending Provider [phone] Mario Glasgow Admitting Unavailable Mario Glasgow Attending Unavailable Mario Glasgow Primary Care Unavailable Rell Garcia Admitting Unavailable Rell Garcia Attending Unavailable Mario Glasgow Primary Care Unavailable Rell Garcia Admitting Unavailable Rell Garcia Attending Unavailable Arun Ervin Admitting Unavailable Arun Ervin Attending Unavailable Mario Glasgow. Primary Care Unavailable Rell Garcia Admitting Unavailable Mario Glasgow Primary Care Unavailable Rell Garcia Attending Unavailable Rell Garcia Admitting Unavailable Rell Garcia Attending Unavailable EPE, DR MARIO Cullen Primary Care Unavailable MARKER ., DR HOPKINS Admitting Unavailable MARKER ., DR HOPKINS Attending Unavailable MARKER ., DR HOPKINS Consulting Unavailable PEE, DR MARIO Cullen Primary Care Unavailable CAMILLE SANTIZO Admitting Unavailable CAMILLE SANTIZO Attending Unavailable GRECHNY ., SIVAN FAULKNER Consulting Unavailabl e CAMILLE SANTIZO Consulting Unavailable PEE, DR MARIO Cullen Primary Care Unavailable SUKHDEV, CAMILLE Admitting Unavailable SUKHDEV, CAMILLE Attending Unavailable SUKHDEV, CAMILLE Consulting Unavailable ROC ARNOLD Consulting Unavailable PEE, DR MARIO Cullen Primary Care Unavailable SUKHDEV, CAMILLE Admitting Unavailable SUKHDEV, CAMILLE Attending Unavailable SUKHDEV, CAMILLE Consulting Unavailable PEE, DR MARIO Cullen Primary Care Unavailable LORI ., QUINTIN Admitting Unavailable LORI ., QUINTIN Attending Unavailable Richelle Carter Consulting Unavailable LORI ., QUINTIN Consulting Unavailable PEE, DR MARIO Cullen Primary Care Unavailable SUKHDEV, CAMILLE Admitting Unavailable SUKHDEV, CAMILLE Attending Unavailable CASE ., PHYLICIA Consulting Unavailable SUKHDEV, CAMILLE Consulting Unavailable KLTARA, JASS Consulting Unavailable PEE, DR MARIO Cullen Primary Care Unavailable SUKHDEV, CAMILLE Admitting Unavailable SUKHDEV, CAMILLE Attending Unavailable ROSAURA ., SIVAN FAULKNER Consulting Unavailabl e SUKHDEV, CAMILLE Consulting Unavailable LIZZIE YU Consulting Unavailable Erin Chavez Attending Unavailable DO Sonam Montoya Attending Unavailable Allergies Allergy Classification Reported Allergen(s) Allergy Type Date of Onset Reaction(s) Facility (20 sources) Azithromycin; Translations: [azithromycin] Drug Allergy 04-10-20 22 Itching, Unknown, Estech [facility] [employer] Other (4 sources) cefTRIAXone; Translations: [ceftriaxone] Drug Allergy Mean (qualifier value) [facility] (20 sources) Ciprofloxacin; Translations: [ciprofloxacin] Drug Allergy 04-10-20 22 Itching, Unknown, Estech [facility] [employer] Other (9 sources) Dicyclomine; Translations: [dicyclomine] Drug Allergy 04-10-20 22 Agitation, Agitated [facility] (20 sources) Ketorolac; Translations: [ketorolac] Drug Allergy 04-10-20 22 Itching, Unknown, [employer] [facility] [employer] Other (20 sources) Metoclopramide; Translations: [metoclopramide] Drug Allergy 04-10-20 22 Itching, Unknown, Agitated [facility] [employer] Other (20 sources) Morphine; Translations: [morphine] Drug Allergy Hives, Hives-IV [facility] [employer] Other Comment on above: causes hives (20 sources) NITROFURANTOIN, MACROCRYSTALS / Nitrofurantoin, Monohydrate; Translations: [nitrofurantoin] Drug Allergy Itching, Unknown [facility] [employer] Other (20 sources) Penicillin; Translations: [penicillin] Drug Allergy Unknown (qualifier value) [facility] [employer] Other (4 sources) zolpidem; Translations: [zolpidem] Drug Allergy Agitation [facility] (20 sources) diphenhydrAMINE Drug Allergy IV Hives [facility] [employer] Other (20 sources) LORazepam Drug Allergy 04-10-20 22 aggressive, Extrapyramidal Symptoms [facility] (20 sources) Penicillin V Drug Allergy Unknown [facility] [employer] Other (10 sources) diphenhydrAMINE Drug Allergy IV Hives [facility] [employer] Other (20 sources) DULoxetine Drug Allergy worsen depression [facility] [employer] Other (6 sources) Nitrofurantoin; Translations: [nitrofurantoin] Drug Allergy 04-10-20 22 Hives [facility] (7 sources) Penicillins; Translations: [Penicillins] Allergy to substance 09-17-19 13 Unknown Reaction [facility] (1 source) Azithromycin Drug Allergy 05-02-19 [facility] (1 source) Ciprofloxacin Drug Allergy 05-02-19 [facility] (1 source) Dicyclomine Drug Allergy 05-02-19 [facility] (1 source) Ketorolac Drug Allergy 05-02-19 [facility] (1 source) LORazepam Drug Allergy 05-02-19 [facility] (1 source) Metoclopramide Drug Allergy 05-02-19 [facility] (1 source) Azithromycin Drug Allergy 09-17-19 13 [facility] (1 source) Ciprofloxacin Drug Allergy 09-17-19 13 [facility] (1 source) Dicyclomine Drug Allergy 07-20-19 15 [facility] (1 source) Iothalamate Drug Allergy 09-17-19 13 [facility] (1 source) Ketorolac Drug Allergy 03-11-20 13 [facility] (1 source) LORazepam Drug Allergy 09-10-19 16 [facility] (1 source) Nitrofurantoin Drug Allergy 09-17-19 13 [facility] (1 source) LORazepam; Translations: [Ativan] Drug Allergy [facility] Rep[facility] Medications Current Medications Medication Drug Class(es) Dates Sig (Normalized) Sig (Original) Acetaminophen / HYDROcodone (14 sources) Opioid Agonist Start: 05-16-2021 [place] 5/325 Tab Oral, q6hr, Refill(s) 0 Start Date: 05/16/21 Status: Ordered Start: 05-08-2021 take 1 tablet by karl th every six hours HYDROcodone-Acetaminophen 5-325 MG 1 tab let as needed Orally every 6 hrs for 5 days Apr, Not-Taking Start: 05-08-2021 take 1 tablet by karl th every six hours ALPRAZolam 2 mg oral tablet (20 sources) Benzodiazepine Start: 02-25-2023 take 1 tablet by mouth every twelve hours Xanax 2 MG 1 tablet as needed Orally Twice a day for 30 days Feb, Active Start: 01-21-2023 take 1 tablet by karl th every twelve hours Xanax 2 MG 1 tablet as needed Orally Twice a day for 30 days Jan, Active Start: 12-20-2022 take 1 tablet by karl th every twelve hours Xanax 2 MG 1 tablet as needed Orally Twice a day for 30 days Dec, Active Start: 11-20-2022 take 1 tablet by karl th every twelve hours Xanax 2 MG 1 tablet as needed Orally Twice a day for 30 days Nov, Active Start: 10-15-2022 take 1 tablet by karl th every twelve hours Xanax 2 MG 1 tablet as needed Orally Twice a day for 30 days Sep, Active Start: 09-13-2022 take 1 tablet by karl th every twelve hours Xanax 2 MG 1 tablet as needed Orally Twice a day for 30 days August, Active Start: 08-09-2022 take 1 tablet by karl th every twelve hours Xanax 2 MG 1 tablet as needed Orally Twice a day for 30 days Jul, Active Start: 07-08-2022 take 1 tablet by karl th every twelve hours Xanax 2 MG 1 tablet as needed Orally Twice a day for 30 days Jun, Active Start: 06-10-2022 take 1 tablet by karl th every twelve hours Xanax 2 MG 1 tablet as needed Orally Twice a day for 30 days May, Active Start: 05-09-2022 take 1 tablet by karl th every twelve hours Xanax 2 MG 1 tablet as needed Orally Twice a day for 30 days Apr, Active Start: 03-08-2022 take 1 tablet by karl th every twelve hours Xanax 2 MG 1 tablet as needed Orally Twice a day for 30 days Feb, Active Start: 02-04-2022 take 1 tablet by karl th every twelve hours Xanax 2 MG 1 tablet as needed Orally Twice a day for 30 days Jan, Active Start: 12-25-2021 take 1 tablet by karl th every twelve hours Xanax 2 MG 1 tablet as needed Orally Twice a day for 30 days Dec, Active Start: 11-26-2021 take 1 tablet by karl th every twelve hours Xanax 2 MG 1 tablet as needed Orally Twice a day for 30 days Nov, Active Start: 10-19-2021 take 1 tablet by karl th every twelve hours Xanax 2 MG 1 tablet as needed Orally Twice a day for 30 days Oct, Active Start: 09-18-2021 take 1 tablet by karl th every twelve hours Xanax 2 MG 1 tablet as needed Orally Twice a day for 30 days August, Active Start: 08-13-2021 take 1 tablet by karl th every twelve hours Xanax 2 MG 1 tablet as needed Orally Twice a day for 30 days Jul, Active Start: 07-06-2021 take 1 tablet by karl th every twelve hours Xanax 2 MG 1 tablet as needed Orally Twice a day for 30 days Jun, Active Start: 06-08-2021 take 1 tablet by [facility] every twelve hours Xanax 2 MG 1 tablet as needed Orally Twice a day for 30 days May, Active Start: 05-08-2021 take 1 tablet by [facility] every twelve hours Xanax 1 MG 1 tablet as needed Orally Twice a day for 30 days Apr, Active Start: 04-11-2021 take 1 tablet by [facility] every twelve hours Xanax 1 MG 1 tablet as needed Orally Twice a day for 30 days Mar, Active Start: 04-24-2017 take 1 tablet by [facility] twice daily as needed for anxiety Xanax 0.25 mg Tab 0.25 mg = 1 tab(s), Oral, BID, PRN as needed for anxiety, Refills(s) 0 Start Date: 04/24/17 Status: Ordered Start: 03-14-2017 take 2 tablets by [facility] twice daily Alprazolam (Xanax) 1 mg Tablet Active 2 MG PO Twice daily March 14, 2017 12:00am Extra Strength Acetaminophen (15 sources) Extra Strength Acetaminophen Active fluconazole 100 mg oral tablet (2 sources) Azole Antifungal take 1 tablet by mouth three times weekly Diflucan 100 MG 1 tablet Orally 3 times per week for 7 days Active 24 hr mirabegron 25 mg extended release oral tablet (3 sources) beta3-Adrenergic Agonist Start: 05-21-19 take 1 tablet by mouth once daily Myrbetriq 25 mg oral tablet, extended release 25 mg = 1 tab(s), Oral, Daily, # 90 tab(s), Refills(s) 3, Bladder problems, Pharmacy: [facility]/pharmacy #[id number], 165, cm, 05/18/21 11:56:00 EST, Height/Length Dosing, 100, kg, 05/16/21 9:54:00 EST, Weight Dosing Start Date: 05/21/21 Status: Ordered montelukast 10 mg oral tablet (17 sources) Leukotriene Receptor Antagonist Start: 06-25-19 take 1 tablet by mouth every twenty-four hours Montelukast Sodium 10 MG 1 tablet Orally Once a day for 30 days 06 Mar, 2023 Active ondansetron 4 mg disintegrating oral tablet (20 sources) Serotonin-3 Receptor Antagonist Start: 05-02-19 take 4 mg by mouth every six hours Ondansetron Active 4 MG PO Q6H May 02, 2022 12:00am Start: 06-18-2021 take 1 tablet by karl every eight hours Ondansetron HCl 4 MG 1 tablet on the tongue and allow to dissolve Orally every 8 hrs for 10 days May, Active Start: 01-29-2021 Ondansetron Hc l (Zofran) 4 mg tablet Active 4 MG PO every 6 to 8 hours January 28, 2021 11:00pm Start: 08-21-2017 End: 08-24-2017 take 1 tablet by mouth every eight hours Ondansetron (Zofran Odt) 8 mg tablet,disintegrating Discontinued 8 MG PO Q8H 5 August 20, 2017 11:00pm August 23, 2017 11:01pm Start: 03-14-2017 End: 06-04-2017 take 1 tablet by mouth every eight hours Ondansetron (Zofran Odt) 4 mg tablet,disintegrating Discontinued 4 MG PO Q8H March 14, 2017 12:00am June 04, 2017 2:00am phentermine hydrochloride 37.5 mg oral tablet (20 sources) Sympathomimetic Amine Anorectic Start: 01-29-2023 take 1 tablet by mouth once daily before breakfast Phentermine HCl 37.5 MG 1 tablet before breakfast Orally Once a day for 30 days Jan, Active Start: 12-12-2022 take 1 tablet by karl once daily before breakfast Phentermine HCl 37.5 MG 1 tablet before breakfast Orally Once a day for 30 days Nov, Active Start: 11-14-2022 take 1 tablet by karl once daily before breakfast Phentermine HCl 37.5 MG 1 tablet before breakfast Orally Once a day for 30 days Oct, Active Start: 09-17-2022 take 1 tablet by karl once daily before breakfast Phentermine HCl 37.5 MG 1 tablet before breakfast Orally Once a day for 30 days August, Active Start: 12-25-2021 take 1 tablet by karl every twenty-four hours Adipex-P 37.5 MG 1 tablet Orally Once a day for 30 days Dec, Active Start: 11-21-2021 take 1 tablet by karl th every twenty-four hours Adipex-P 37.5 MG 1 tablet Orally Once a day for 30 days Nov, Active Start: 10-12-2021 take 1 tablet by karl th every twenty-four hours Adipex-P 37.5 MG 1 tablet Orally Once a day for 30 days Sep, Active Start: 11-21-2017 End: 12-22-2018 Phentermine (Adipex-P) 37.5 mg Capsule Discontinued 37.5 MG PO As Directed November 20, 2017 11:00pm December 22, 2018 3:27pm sulfacetamide sodium 100 mg/ml ophthalmic solution (2 sources) Sulfonamide Antibacterial Start: 11-28-2010 take 1 drop(s) into the eye(s) every six hours Bleph-10 10 % 1 drop into affected eye Ophthalmic every 6 hrs for 5 days Nov, Active Zanaflex (20 sources) Central alpha-2 Adrenergic Agonist Start: 05-16-2021 Zanaflex Oral, Refills(s) 0 Start Date: 05/16/21 Status: Ordered Start: 04-25-2021 take 4 mg by mouth o nce daily at bedtime Tizanidine Active 4 MG PO Daily at bedtime April 25, 2021 12:00am take 1 tablet by karl th every eight hours Zanaflex 4 MG 1 tablet as needed Orally Three times a day for 30 days Active traMADol hydrochloride 50 mg oral tablet (12 sources) Opioid Agonist Start: 11-23-2022 take 1 tablet by mouth every six hours as needed for pain traMADOL 50 mg Tab 50 mg = 1 tab(s), Oral, q6hr, PRN for pain, # 12 tab(s), Refills(s) 0, Pharmacy: [facility]/pharmacy #[id number], 165, cm, 11/22/22 19:18:00 EDT, Height/Length Dosing, 103, kg, 11/22/22 19:18:00 EDT, Weight Dosing Start Date: 11/23/22 Status: Ordered Start: 05-02-2022 take 50 mg by mouth every four hours Tramadol Active 50 MG PO Q4H 20 May 02, 2022 12:00am Start: 01-30-2022 take 1-2 tablets by mouth every six hours as needed traMADol HCl 50 MG 1-2 tabs as needed Orally every 6 hours for 5 days Jan, Active Start: 03-22-2021 take 1-2 tablets by mouth every six hours as needed traMADol HCl 50 MG 1-2 tabs as needed Orally every 6 hours for 7 days Mar, Active valACYclovir 1000 mg oral tablet (13 sources) Herpesvirus Nucleoside Analog DNA Polymerase Inhibitor, Herpes Simplex Virus Nucleoside Analog DNA Polymerase Inhibitor, Herpes Zoster Virus Nucleoside Analog DNA Polymerase Inhibitor Start: 04-10-2022 take 1000 mg by mouth twice daily Valacyclovir Active 1000 MG PO Twice daily April 10, 2022 12:00am take 1 tablet by karl th once daily as needed Valtrex 1 GM 1 tablet Orally for cold sores Once a day/PRN Active Completed/Discontinued Medications Medication Drug Class(es) Dates Sig (Normalized) Sig (Original) acetaminophen 325 mg / oxyCODONE hydrochloride 5 mg oral tablet (19 sources) Opioid Agonist Start: 09-03-2017 End: 09-07-2017 take 1 tablet by mouth every four to six hours Oxycodone-Acetamino phen Discontinued 1 TAB PO EVERY 4-6 HOURS September 03, 2017 September 06, 2017 11:02pm Start: 08-21-2017 End: 11-21-2017 take 2 tablets by mouth every four hours Oxycodone-Acetaminophen (Percocet) 5-325 mg tablet Discontinued 2 TAB PO Q4H August 21, 2017 November 21, 2017 6:33pm take 1 tablet by karl th every six hours Percocet 5-325 MG 1 tablet as needed Orally every 6 hrs Not-Taking ARIPiprazole 2 mg oral tablet (5 sources) Atypical Antipsychotic Start: 03-14-2017 End: 06-04-2017 Aripiprazole (Abilify) 2 mg Tablet Discontinued TABLET March 14, 2017 12:00am June 04, 2017 1:59am cephalexin 500 mg oral capsule (5 sources) Cephalosporin Antibacterial Start: 09-08-2017 End: 11-21-2017 take 1 capsule by mouth four times daily Cephalexin (Keflex) 500 mg capsule Discontinued 500 MG PO Four times daily 40 September 07, 2017 11:00pm November 21, 2017 6:33pm cyclobenzaprine hydrochloride 10 mg oral tablet (5 sources) Muscle Relaxant Start: 03-14-2017 End: 06-04-2017 take 10 mg by mouth three times daily Cyclobenzaprine Discontinued 10 MG PO Three times daily March 14, 2017 12:00am June 04, 2017 2:00am doxycycline hyclate 100 mg oral tablet (3 sources) Tetracycline-clas s Drug Start: 06-21-2021 take 1 tablet by mouth once daily doxycycline hyclate 100 mg Tab 100 mg = 1 tab(s), Oral, BID, Take 1 tablet the day prior to scheduled procedure, take 2nd tablet the day of procedure, # 2 tab(s), Refills(s) 0, Pharmacy: [facility]/pharmacy #[id number], 165, cm, 05/18/21 11:56:00 EST, Height/Length Dosing, 100, kg, 05/16/21 9:5... Start Date: 06/21/21 Status: Ordered ergocalciferol 1.25 mg oral capsule (20 sources) Provitamin D2 Compound Start: 07-17-2020 take 1 capsule by mouth every week Vitamin D (Ergocalciferol) 1.25 MG (13375 UT) 1 capsule Orally weekly for 30 day(s) Jun, Not-Taking ibuprofen 800 mg oral tablet (5 sources) Nonsteroidal Anti-inflammatory Drug Start: 03-14-2017 End: 06-04-2017 take 800 mg by mouth three times daily Ibuprofen Discontinued 800 MG PO Three times daily March 14, 2017 12:00am June 04, 2017 2:00am lamoTRIgine 25 mg oral tablet (5 sources) Mood Stabilizer, Anti-epileptic Agent Start: 06-12-2017 End: 11-21-2017 take 100 mg by mouth twice daily Lamotrigine Discontinued 100 MG PO Twice daily June 12, 2017 12:00am November 21, 2017 6:33pm levothyroxine sodium 0.075 mg oral tablet (5 sources) l-Thyroxine Start: 12-22-2018 End: 04-25-2021 take 75 ug by mouth once daily Levothyroxine Discontinued 75 MCG PO Daily December 21, 2018 11:00pm April 25, 2021 1:41pm 3 ml liraglutide 6 mg/ml pen injector (7 sources) GLP-1 Receptor Agonist Start: 09-27-2021 inject 0.6 mg by subcutaneous injection once daily Saxenda 18 MG/3ML 0.6 mg Subcutaneous once daily for 14 days Sep, Not-Taking metFORMIN hydrochloride 500 mg oral tablet (15 sources) Biguanide Start: 06-24-2018 End: 12-22-2018 Metformin Discontinued TABLET June 24, 2018 12:00am December 22, 2018 3:27pm Start: 09-03-2017 End: 11-21-2017 take 250 mg by mouth twice daily Metformin Discontinued 250 MG PO Twice daily September 02, 2017 11:00pm November 21, 2017 6:33pm Start: 03-14-2017 End: 09-03-2017 take 250 mg by mouth twice daily Metformin Discontinued 250 MG PO Twice daily March 14, 2017 12:00am September 03, 2017 11:54am naproxen 500 mg oral tablet (5 sources) Nonsteroidal Anti-inflammatory Drug Start: 12-04-2019 End: 04-25-2021 take 500 mg by mouth every twelve hours Naproxen Discontinued 500 MG PO Q12H December 03, 2019 11:00pm April 25, 2021 1:41pm phenazopyridine hydrochloride 200 mg oral tablet (5 sources) Start: 09-08-2017 End: 11-21-2017 take 200 mg by mouth three times daily at mealtime Phenazopyridine Discontinued 200 MG PO Three times daily 01 21September 07, 2017 11:00pm November 21, 2017 6:33pm administer with a full glass of water after each meal sulfamethoxazole 800 mg / trimethoprim 160 mg oral tablet (5 sources) Dihydrofolate Reductase Inhibitor Antibacterial, Sulfonamide Antimicrobial Start: 01-29-2021 End: 04-25-2021 take 1 tablet by mouth twice daily Sulfamethoxazole-T rimethoprim (Bactrim Ds) 800-160 mg tablet Discontinued 1 TAB PO Twice daily January 28, 2021 11:00pm April 25, 2021 1:41pm tamsulosin hydrochloride 0.4 mg oral capsule (5 sources) alpha-Adrenergic Jimmie Start: 09-08-2017 End: 11-21-2017 Tamsulosin (Flomax) 0.4 mg capsule,extended release 24hr Discontinued 0.4 MG PO Daily September 07, 2017 11:00pm November 21, 2017 6:33pm administer 30 minutes after same meal each day; swallow whole with liquid; do not crush/chew/dissolv e/open temazepam 7.5 mg oral capsule (10 sources) Benzodiazepine Start: 06-24-2018 End: 04-25-2021 take 1 capsule by mouth at bedtime Temazepam (Restoril) 7.5 mg Capsule Discontinued 7.5 MG PO Bedtime June 24, 2018 12:00am April 25, 2021 1:41pm Start: 06-04-2017 End: 12-22-2018 take 30 mg by mouth once daily at bedtime Temazepam Discontinued 30 MG PO Daily at bedtime June 04, 2017 12:00am December 22, 2018 3:27pm topiramate 25 mg oral tablet (5 sources) Start: 01-27-2019 End: 04-25-2021 take 1 mg by mouth twice daily Topiramate Discontinued 1 MG PO Twice daily January 26, 2019 11:00pm April 25, 2021 1:41pm Problems Active Problems Problem Classification Problem Date Documented Da te Episodic/Chronic Abdominal pain (20 sources) Abdominal pain; Translations: [Unspecified abdominal pain] Onset: 05-02-2021 Resolved: 05-02-2021 Episodic Administrative/social admission (1 source) Stress, not elsewhere classified; Translations: [STRESS NOT ELSEWHERE CLASSIFIED] Onset: 08-15-2022 Episodic Anxiety disorders (20 sources) Anxiety; Translations: [Anxiety disorder, unspecified] Onset: 05-30-2021 Resolved: 05-30-2021 07-02-2013 Chronic Calculus of urinary tract (13 sources) History of calculus of kidney; Translations: [Personal history of urinary calculi] Onset: 08-15-2021 Episodic Diabetes mellitus without complication (20 sources) Impaired fasting glycemia; Translations: [Impaired fasting glucose] Episodic Endometriosis (1 source) Endometriosis, unspecified; Translations: [ENDOMETRIOSIS UNSPECIFIED] Onset: 04-29-2022 Chronic Epilepsy; convulsions (7 sources) Seizure; Translations: [Epilepsy, unspecified, not intractable, without status epilepticus] Onset: 10-31-2021 06-21-2017 Chronic Epilepsy; convulsions (11 sources) Seizure; Translations: [Neurological finding] Onset: 10-29-2021 06-06-2016 Episodic Genitourinary symptoms and ill-defined conditions (4 sources) Mixed incontinence; Translations: [Incontinence] Onset: 08-15-2021 Chronic Headache; including migraine (20 sources) Migraine without aura, not refractory ; Translations: [Migraine without aura, not intractable, without status migrainosus] Onset: 08-13-2022 Chronic Headache; including migraine (15 sources) Headache; Translations: [Headache] 06-22-2017 Episodic Headache; including migraine (3 sources) Headache; including migraine; Translations: [HEADACHE UNSPECIFIED] Onset: 08-12-2022 Menstrual disorders (20 sources) Disorder of menstruation; Translations: [Irregular menstruation, unspecified] Chronic Miscellaneous mental health disorders (20 sources) Dissociative convulsions; 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] 06-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 Mood disorders (4 sources) Depressive disorder; Translations: [Major depressive disorder, single episode, unspecified] Onset: 02-11-2022 07-02-2013 Chronic Mood disorders (1 source) Mood disorders; Translations: [DEPRESSION UNSPECIFIED] Onset: 08-15-2022 Nausea and vomiting (7 sources) Nausea; Translations: [Nausea] Onset: 04-29-2022 01-27-2019 Episodic Nutritional deficiencies (20 sources) Vitamin D deficiency; Translations: [Vitamin D deficiency, unspecified] Onset: 09-27-2021 Resolved: 09-27-2021 Chronic Other aftercare (1 source) Other intermediate (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 therapy; Translations: [OTH WEATHERIZATION INSTALLER CURRENT DRUG THERAPY] Onset: 08-15-2022 Episodic Other circulatory disease (6 sources) Postural orthostatic tachycardia syndrome 06-06-2016 Episodic Other diseases of bladder and urethra (4 sources) Urethral stricture; Translations: [Other urethral stricture, female] Onset: 08-15-2021 Episodic Other diseases of kidney and ureters (3 sources) Hydronephrosis 05-16-2021 Episodic Other female genital disorders (1 source) Abnormal uterine and vaginal bleeding, unspecified; Translations: [Abnormal uterine and vaginal bleeding, unspecified] Onset: 05-02-2022 Chronic Other gastrointestinal disorders (20 sources) Irritable bowel syndrome; Translations: [Irritable bowel syndrome without diarrhea] Chronic Other gastrointestinal disorders (1 source) Irritable bowel syndrome without diarrhea; Translations: [IRRITABLE BOWEL SYND W/O DIARRHEA] Onset: 08-15-2022 Chronic Other gastrointestinal disorders (20 sources) Constipation; Translations: [Constipation, unspecified] Episodic Other nervous system disorders (1 source) Other chronic pain; Translations: [OTHER CHRONIC PAIN] Onset: 04-29-2022 Chronic Other nervous system disorders (1 source) Chronic pain; Translations: [Other chronic pain] Onset: 11-22-2022 Chronic Other nervous system disorders (1 source) Other acute postprocedural pain; Translations: [Other acute postprocedural pain] Onset: 05-02-2022 Episodic Other nutritional; endocrine; and metabolic disorders (20 sources) Body mass index 30+ - obesity; Translations: [Body mass index (BMI) 38.0-38.9, adult] Chronic Other nutritional; endocrine; and metabolic disorders (20 sources) Obesity; Translations: [Obesity, unspecified] Chronic Other nutritional; endocrine; and metabolic disorders (20 sources) Obese class II; Translations: [Body mass index (BMI) 39.0-39.9, adult] Chronic Other nutritional; endocrine; and metabolic disorders (6 sources) Body mass index (BMI) 37.0-37.9, adult Onset: 10-12-2021 Resolved: 12-12-2021 Chronic Other nutritional; endocrine; and metabolic disorders (3 sources) Body mass index (BMI) 38.0-38.9, adult Onset: 09-27-2021 Resolved: 10-01-2021 Chronic Other nutritional; endocrine; and metabolic disorders (2 sources) Body mass index (BMI) 36.0-36.9, adult Onset: 11-21-2021 Resolved: 12-25-2021 Chronic Other nutritional; endocrine; and metabolic disorders (2 sources) Body mass index (BMI) 39.0-39.9, adult Chronic Other upper respiratory disease (17 sources) Seasonal allergy; Translations: [Other seasonal allergic rhinitis] Chronic Other upper respiratory disease (1 source) Other seasonal allergic rhinitis Chronic Residual codes; unclassified (20 sources) Sedative, hypnotic AND/OR anxiolytic-induced sleep disorder; Translations: [Other sleep disorders] Chronic Residual codes; unclassified (20 sources) Daytime somnolence; Translations: [Other hypersomnia] Chronic Residual codes; unclassified (20 sources) Hypnagogic hallucinations; Translations: [Other hallucinations] Episodic Residual codes; unclassified (20 sources) Insomnia; Translations: [Insomnia, unspecified] Episodic Substance-related disorders (3 sources) Smoker 07-24-2016 Chronic Comment on above: Added secondary to d ocumentation in Social History. Syncope (3 sources) Syncope 06-06-2016 Episodic Unclassified (1 source) Frequency of micturition; Translations: [Frequency of micturition] Onset: 06-14-2022 Unclassified (1 source) Encounter for preprocedural laboratory examination; Translations: [Encounter for preprocedural laboratory examination] Onset: 04-10-2022 Unclassified (1 source) ADENOMYOSIS OF THE UTERUS; Translations: [ADENOMYOSIS OF THE UTERUS] Onset: 04-29-2022 Urinary tract infections (10 sources) Acute cystitis; Translations: [Acute cystitis without hematuria] Onset: 08-15-2021 Episodic Viral infection (3 sources) Herpes simplex 07-02-2013 Episodic Past or Other Problems Problem Classification Problem Date Documented Date Episodic/Chronic Acquired foot deformities (2 sources) Bunion of right foot Onset: 05-02-2021 Resolved: 05-30-2021 Episodic Allergic reactions (1 source) Erythema ab igne [dermatitis ab igne] Onset: 12-12-2021 Resolved: 12-12-2021 Episodic Contraceptive and procreative management (1 source) Tubal ligation status; Translations: [TUBAL LIGATION STATUS] Onset: 04-02-2022 Episodic E Codes: Natural/environment (1 source) Overexertion from prolonged static or awkward postures, initial encounter; Translations: [OVEREXERT PROLNG STAT/AWK PST INIT] Onset: 04-02-2022 Episodic Genitourinary symptoms and ill-defined conditions (1 source) Dysuria Onset: 05-08-2021 Resolved: 05-08-2021 Episodic Other non-traumatic joint disorders (3 sources) Pain in right ankle and joints of right foot; Translations: [PAIN IN RIGHT ANKLE] Onset: 03-28-2022 Episodic Other non-traumatic joint disorders (3 sources) Pain in left shoulder; Translations: [PAIN IN LEFT SHOULDER] Onset: 02-10-2022 Episodic Sprains and strains (11 sources) Strain of neck muscle; Translations: [Strain of muscle, fascia and tendon at neck level, initial encounter] Onset: 04-02-2022 06-22-2017 Episodic Superficial injury; contusion (6 sources) Abrasion of foot; Translations: [Abrasion, unspecified foot, initial encounter] Onset: 02-11-2022 12-04-2019 Episodic Unclassified (1 source) kidney infections( Confirmed ) 07-21-2012 Unclassified (1 source) Conjunctivitis 372.30 Onset: 10-23-2021 Resolved: 10-23-2021 Unclassified (2 sources) kidney infections 07-21-2012 Results Test Name Value Interpretation Reference Range Facility Physician Referralon 023 Physician Referral [id number] [facility] Physician Referralon 023 Physician Referral [id number]:12 7 [facility] RAD - MISCon 12-27-2022 RAD - MISC [id number]:12 7 [facility] ED Note-Physicianon 11-27-19 ED Note-Physician [id number]:12 7 [facility] ED Note-Physician Basic Information Time Seen: Gaby Turner PA-C 11/22/2022 20:47 Chief Complaint L flank pain worsening x 2 weeks. pt. seen at [facility] x 2 with negative workup. hx kidney stones. also c/o N/V. denies fevers. History of Present Illness This patient presents emergency department chief complaint of left flank pain. The patient states this has been going on for 2 weeks. She has been seen at [facility] twice but they could not determine an etiology of her discomfort. Patient states she does have a history of kidney stones. She denies any urinary burning frequency urgency. She denies any nausea or vomiting. She denies any fevers chills or sweats. She denies any constipation or diarrhea. Patient denies . Review of Systems Constitutional: Denies weight loss, fevers, chills, sweats, malaise Eyes: Denies visual changes, eye pain, double vision, scotomas, floaters ENT: Denies runny nose, epistaxis, sinus pain, ear pain, ringing in ears, tooth ache, sore throat, pain with swallowing Cardiovascular: Denies chest pain, shortness of breath, orthopnea, edema, palpitations, loss of consciousness, claudication Respiratory: Denies cough, sputum production, wheezing, hemoptysis, shortness of breath, dyspnea on exertion Gastrointestinal: Denies abdominal pain, unintentional weight loss, difficulty swallowing, indigestion, bloating, cramping, loss of appetite, nausea, vomiting, diarrhea, constipation, hematochezia, melena. + Left flank pain Genitourinary: Denies any incontinence of urine, dysuria, hematuria, nocturia, polyuria, hesitancy, frequency, urgency, burning Musculoskeletal: Denies joint pain, morning stiffness, joint swelling, decreased range of motion, crepitus Integumentary: Denies any pruritus, rashes, lesions, wounds, petechiae Neurologic: Denies any changes in sight, smell, hearing, taste, seizures, headache, paresthesia, numbness, weakness, balance disturbance Psychiatric denies any depression, change in sleep patterns, anxiety, difficulty concentrating, paranoia, anhedonia, lack of energy, betsey Hematologic/lymphatic: Denies any purpura, petechiae, excessive bleeding, bruising Physical Exam Vitals & Measurements T: 36.8 ?C(Oral) HR: 64(Monitored) RR: 19 BP: 117/83 SpO2: 97% HT: 165 cm WT: 103 kg BMI: 37.83 Vital signs and nursing notes reviewed. General: Awake, alert, NAD. HEENT: Head is normocephalic, atraumatic. PERRL. EOMI. Sclerae are anicteric. External ears are normal. TMs are intact bilaterally. Canals are clear bilaterally. Nares are patent bilaterally. Oral mucosa is pink and moist. No lesions noted. Tongue protrudes in midline. Uvula rises with phonation. Neck is supple, no no palpable adenopathy. No JVD. Trachea is midline. Thorax: Symmetrical rise and fall Lungs: Clear to auscultation throughout all baugh, no wheezes, no crackles Heart: Regular rate and rhythm. No murmur, gallop, or rub Abdomen: No tenderness on palpation. Bowel sounds are present active and normal. No organomegaly. No palpable masses. No CVA tenderness. + Ileostomy Extremities: Motor sensory pulses intact x4 extremities. No lower extremity edema. Skin: No lesions, rashes, ulcerations. No bruising or petechiae. Color appropriate, warm and dry Neuro: No oriented x3, no focal neuro deficits Psych: Mood and affect are normal Medical Decision Making MEDICAL DECISION MAKING Number and Complexity of Problems Differential Diagnosis: Nephrolithiasis, hydronephrosis, ureterolithiasis, acute lower urinary tract infection, ovarian cyst, endometriosis, adhesions MDM Data External documents reviewed: Not applicable My EKG interpretation: Noted in chart if applicable My CT interpretation: Noted in chart if applicable My X-ray interpretation: Noted in chart if applicable My Ultrasound interpretation: Not applicable Decision rules/scores evaluated: Noted in chart if applicable Discussed with: Not applicable Treatment and Disposition ED Course: Patient was interviewed and examined. The appropriate ER work-up was initiated. CBC, CMP, UA were all unremarkable. Urine hCG was negative. I had a long discussion with the patient and her . Given her multiple prior abdominal surgeries, there is a possibility she could be having some discomfort due to adhesions. Also discussed with her that she could be having pelvic discomfort due to something like endometriosis. Patient has not followed up with a gis geographer in a long time. I discussed with her that she needs further work-up, but this work-up cannot be performed in the emergency department. The patient does have a history of Crohn's disease and has an ileostomy. Given her normal CBC, CMP, UA the risk of radiation exposure is outweighed by low probability of any acute findings that would be determined by CT scan. The patient and her were in agreement with this. I discussed the discharge diagnosis, plan of care, need for close follow-up with gynecology. I also discussed with the patient (more content not included)... Normal [facility] Comment on above: Result Comment: Elec tronically Signed By: Gaby Turner PA-C\.br\Date and Time Signed: 11/24/22 04:37 EDT\.br\Electronically Co-Signed By: Sonam Montoya DO\.br\Date and Time Co-Signed: 11/25/22 22:37 EDT C Urineon 11-24-2022 Bacteria identified Cx Nom (U) Microbiology PROCEDURE: Urine Culture [R1] SOURCE: U CleanCatch BODY SITE: COLLECTED DATE/TIME: 11/22/2022 19:19 EDT RECEIVED DATE/TIME: 11/22/2022 20:41 EDT START DATE/TIME: 11/22/2022 20:41 EDT FREE TEXT SOURCE: Sonam Montoya DO, DO, Kaylinn A FINAL REPORTS Final Report [] Verified Date/Time: 11/24/2022 11:29 EDT 2,000 cfu/ml Mixed skin contaminants Performing Locations R1: This test was performed at: [facility], [address] [place] [address], [id number] , [place], [facility] Comment on above: Performed By: #### 1 [id number], [id number] #### [facility] [address] [place] [id number] Discharge Instructionson Discharge Instructions [id number]:1 27 Normal [facility] ED Clinical Summaryon 2022 ED Clinical Summary (Inserted Image. Jeniffer ble to display) [address] [address] ED Clinical Summary Person Information Name: SULLY ENRIQUEZ [facility] Age: 32 Years : 1990 Sex: Female Language: Romansh PCP: MARIO GLASGOW DO Marital Status: Visit Id: Visit Reason: Vomiting; Nausea; Flank pain; KIDNEY PAIN Speciality: Acuity: 3 Enc Type: Emergency Med Service: Emergency Arrival: 11/22/2022 19:01:04 Discharge: 11/23/2022 01:20:32 LOS: 000 06:19 Checkin: 11/22/2022 19:01:04 Checkout: 11/23/2022 01:20:32 Dispo Type: Home (Routine DC) EVENTS: Event Name Event Status Request Date/Time Start Date/Time Complete Date/Time Arrive Complete 11/22/2022 19:01:04 11/22/2022 19:01:04 11/22/2022 19:01:04 Document Home Meds Request 11/22/2022 19:01:04 Triage Complete 11/22/2022 19:01:04 11/22/2022 19:18:11 11/22/2022 19:18:11 Registration Complete 11/22/2022 19:04:28 11/22/2022 19:04:28 11/22/2022 19:04:28 Reg Complete Request 11/22/2022 19:04:28 Reg Bed Request Complete 11/22/2022 19:04:28 11/22/2022 19:04:28 11/22/2022 19:04:28 Pending Labs Complete 11/22/2022 19:19:03 11/22/2022 20:40:35 Lab Complete 11/22/2022 19:19:03 11/22/2022 20:40:35 Urine Collect Complete 11/22/2022 19:19:03 11/22/2022 19:57:08 Pending Labs Inlab 11/22/2022 19:57:09 11/22/2022 19:57:09 Lab Inlab 11/22/2022 19:57:09 11/22/2022 19:57:09 Pending Labs Complete 11/22/2022 20:11:34 11/22/2022 20:11:34 11/22/2022 20:40:33 Lab Complete 11/22/2022 20:11:34 11/22/2022 20:11:34 11/22/2022 20:40:33 Pending Labs Complete 11/22/2022 20:17:13 11/22/2022 20:17:13 11/22/2022 20:17:22 Lab Complete 11/22/2022 20:17:13 11/22/2022 20:17:13 11/22/2022 20:17:22 Bed Assign Complete 11/22/2022 20:32:20 11/22/2022 20:32:20 11/22/2022 20:32:20 Dr Exam Complete 11/22/2022 20:32:20 11/22/2022 20:47:13 11/22/2022 20:47:13 RN Exam Complete 11/22/2022 20:32:20 11/22/2022 22:09:14 11/22/2022 22:09:14 Registration Complete 11/22/2022 20:47:13 11/23/2022 00:47:20 11/23/2022 00:47:20 Dr Exam Complete 11/22/2022 20:54:22 11/22/2022 20:54:22 11/22/2022 20:54:22 Meds Admin Cancel 11/22/2022 21:42:51 11/22/2022 21:55:27 Meds Admin Complete 11/22/2022 21:55:27 11/22/2022 21:56:54 Meds Admin Complete 11/22/2022 22:46:03 11/22/2022 22:52:21 X-Ray Complete 11/22/2022 22:48:04 11/22/2022 22:52:37 11/22/2022 23:13:48 Wet Read Request 11/22/2022 23:13:48 Discharge Complete 11/23/2022 01:06:27 11/23/2022 01:20:40 11/23/2022 01:20:40 Transfer Complete 11/23/2022 01:20:40 11/23/2022 01:20:40 11/23/2022 01:20:40 ADDRESS: [address] [place] [id number] PHYS DOC NOTES: MEDICAL INFORMATION: Prescriptions Given: New Medications [id number], [address], [place] [id number], [phone] tramadol (traMADOL 50 mg Tab) 1 Tablets By Mouth every 6 hours as needed for pain. Refills: 0. Medications to Continue with No Changes Other Medications acetaminophen-hydrocodone ([place] 5/325 Tab) By Mouth every 6 hours. alprazolam (Xanax 0.25 mg Tab) 1 Tablets By Mouth 2 times a day as needed as needed for anxiety. doxycycline (doxycycline hyclate 100 mg Tab) 1 Tablets By Mouth 2 times a day. Take 1 tablet the day prior to scheduled procedure, take 2nd tablet the day of procedure. Refills: 0. mirabegron (Myrbetriq 25 mg oral tablet, extended release) 1 Tablets By Mouth every day. Refills: 3. tizanidine (Zanaflex) By Mouth. PATIENT EDUCATION INFORMATION: Instructions: Endometriosis; Laparoscopic Lysis of Abdominal Adhesions; Adhesions, Cgoq-cr-Tycq; Abdominal Pain, Adult, Igyo-gp-Qglz Follow up: With: Address: When: MARIO GLASGOW [address] [place] [address] Business (1) In 3 days 11/26/2022 DIAGNOSIS: 1:Chronic left flank pain; 2:Abdominal pain, acute, left upper quadrant; Other chronic pain Normal [facility] ED Patient Education Noteon 11-23-2022 ED Patient Education Note Gastroenterology Laparoscopic Lysis of Abdominal Adhesions Laparoscopic lysis of abdominal adhesions is a surgical procedure to remove tough (fibrous) bands of tissue from the abdomen. Adhesions are like scars, but they form on the inside of the body. They are caused by inflammation and often develop after a previous surgery or infection as part of the healing process. You may need this procedure if you have abdominal adhesions that are causing pain or other symptoms. During the procedure, the surgeon inserts a thin tube that has a light and camera on the end of it (laparoscope) into the abdomen. The camera sends images to a screen in the operating room, and these images are used to help guide the surgery. This type of surgery is done through small incisions, rather than one large incision. Tell a health care provider about: ? Any allergies you have. ? All medicines you are taking, including vitamins, herbs, eye drops, creams, and pelp-waz-bbnjrzl medicines. ? Any problems you or family members have had with anesthetic medicines. ? Any blood disorders you have. ? Any surgeries you have had. ? Any medical conditions you have. ? Whether you are or may be . What are the risks? Generally, this is a safe procedure. However, problems may occur, including: ? Infection. ? Bleeding. ? Allergic reactions to medicines. ? Damage to abdominal organs. ? Development of more abdominal adhesions. What happens before the procedure? Staying hydrated Follow instructions from your health care provider about hydration, which may include: ? Up to 2 hours before the procedure ? you may continue to drink clear liquids, such as water, clear fruit juice, black coffee, and plain tea. Eating and drinking restrictions Follow instructions from your health care provider about eating and drinking, which may include: ? 8 hours before the procedure ? stop eating heavy meals or foods, such as meat, fried foods, or fatty foods. ? 6 hours before the procedure ? stop eating light meals or foods, such as toast or cereal. ? 6 hours before the procedure ? stop drinking milk or drinks that contain milk. ? 2 hours before the procedure ? stop drinking clear liquids. Medicines Ask your health care provider about: ? Changing or stopping your regular medicines. This is especially important if you are taking diabetes medicines or blood thinners. ? Taking medicines such as aspirin and ibuprofen. These medicines can thin your blood. Do not take these medicines unless your health care provider tells you to take them. ? Taking dmyo-iyz-zuhiyuh medicines, vitamins, herbs, and supplements. General instructions ? Do not use any products that contain nicotine or tobacco for at least 4 weeks before the procedure. These products include cigarettes, chewing tobacco, and vaping devices, such as e-cigarettes. If you need help quitting, ask your health care provider. ? You may have a blood or urine sample taken. ? Ask your health care provider: ? How your surgery site will be marked. ? What steps will be taken to help prevent infection. These steps may include: ? Removing hair at the surgery site. ? Washing skin with a germ-killing soap. ? Receiving antibiotic medicine. ? Plan to have a responsible adult take you home from the hospital or clinic. What happens during the procedure? ? An IV will be inserted into one of your veins. ? You will be given one or more of the following: ? A medicine to help you relax (sedative). ? A medicine to numb the area (local anesthetic). ? A medicine to make you fall asleep (general anesthetic). ? A tube may be passed through your nose or mouth and into your stomach (nasogastric tube). ? The surgeon will make a small incision through the wall of your abdomen. ? Your abdomen will be filled with a gas. This will help your surgeon see the inside of your abdomen more clearly. It will also give the surgeon more room to operate. ? A laparoscope with a camera on the end will be passed through the incision. It will send images to a monitor in the operating room. ? Other small incisions may be made in your abdomen. Long, thin surgical instruments will be inserted through them as needed. ? The adhesions will be removed or destroyed with surgical instruments by your surgeon. ? The incisions will be closed with adhesive strips or stitches (sutures). ? A bandage (dressing) will be placed over the incisions. The procedure may vary among health care providers and hospitals. What happens after the procedure? ? Your blood pressure, heart rate, breathing rate, and blood oxygen level will be monitored until you leave the hospital or clinic. ? You may have some pain. You will get pain medicine as needed. ? You will be encouraged to get up and walk around while you are still in the hospital. ? If you have a nasogastric tube, it will be removed when your bowel function returns. Aft (more content not included)... Normal [facility] ED Patient Summaryon 023 ED Patient Summary (Inserted Image. Jeniffer ble to display) [address] [address] Patient Discharge Instructions Person Information Name: SULLY ENRIQUEZ Age: 32 Years Arrival Date: 11/22/2022 19:01:04 Discharge Diagnosis: 1:Chronic left flank pain; 2:Abdominal pain, acute, left upper quadrant; Other chronic pain Primary Care Physician: MARIO GLASGOW DO Provider Information Primary Provider: Sonam Montoya DO Advanced Broadcast Director Operations:None The exam and treatment you received in the Emergency Department were for an urgent problem and are not intended as complete care. It is important that you follow up with a doctor, nurse practitioner, or physician?s activities assistant for ongoing care. If your symptoms become worse or you do not improve as expected and you are unable to reach your usual health care provider, you should return to the Emergency Department. We are available 24 hours a day. SULLY ENRIQUEZ has been given the following list of patient education materials, prescriptions and follow-up instructions: Follow-up Instructions: With: Address: Rad: MARIO GLASGOW [facility] [address] [address] Business (1) In 3 days 11/26/2022 In the event that this physician does not participate in your insurance network, please consult with your insurance company to find a nearby participating provider. Patient Education Materials: Endometriosis; Laparoscopic Lysis of Abdominal Adhesions; Adhesions, Orup-ap-Ftuo; Abdominal Pain, Adult, Udnl-gn-Cdqx A MESSAGE TO ALL PATIENTS REGARDING OPIOIDS PRESCRIPTION OPIOIDS: WHAT YOU NEED TO KNOW Prescription opioids can be used to help relieve khevtoha-fn-xgqdry pain and are often prescribed following a surgery or injury, or for certain health conditions. These medications can be an important part of the treatment but also come with serious risks. It is important to work with your healthcare provider to make sure you are getting the safest, most effective care. WHAT ARE THE RISKS AND SIDE EFFECTS OF OPIOID USE? Prescription opioids carry serious risks of addiction and overdose, especially with prolonged use. An opioid overdose, often marked by slowed breathing, can cause sudden . The use of prescription opioids can have a number of side effects as well, even when taken as directed: ? Tolerance?meaning you might need to take more of the medication for the same pain relief ? Physical dependence?meaning you have symptoms of withdrawal when a medication is stopped ? Increased sensitivity to pain ? Constipation ? Nausea, vomiting, and dry mouth ? Sleepiness and dizziness ? Confusion ? Depression ? Low levels of testosterone that can result in lower sex drive, energy, and strength ? Itching and sweating RISKS ARE GREATER WITH: ? History of drug misuse, substance use disorder, or overdose ? Mental health conditions (such as depression or anxiety) ? Sleep apnea ? Older age (65 years and older) ? Avoid alcohol while taking prescription opioids. Also, unless specifically advised by your health care provider, medications to avoid include: ? Benzodiazepines (such as Xanax or Valium) ? Muscle relaxants (such as Soma or Flexeril) ? Hypnotics (such as Ambien or Lunesta) ? Other prescription opioids KNOW YOUR OPTIONS Talk to your health care provider about ways to manage your pain that don?t involve prescription opioids. Some of these options may actually work better and have fewer risks and side effects. Options may include: ? Pain relievers such as acetaminophen, ibuprofen, and naproxen ? Some medication that are also used for depression or seizures ? Physical therapy and exercise ? Cognitive behavioral therapy, a psychological, goal-directed approach, in which patients learn how to modify physical, behavioral, and emotional triggers of pain and stress. IF YOU ARE PRESCRIBED OPIOIDS FOR PAIN: ? Never take opioids in greater amounts or more often than prescribed. ? Follow up with your primary health care provider. o Work together to create a plan on how to manage your pain. o Talk about ways to help manage your pain that don?t involve prescription opioids. o Talk about any and all concerns and side effects. ? Help prevent misuse and abuse o Never sell or share prescription opioids. o Never use another person?s prescription opioids. ? Store prescription opioids in a secure place and out of reach of others (this may include visitors, children, friends, and family). ? Safely dispose of unused prescription opioids: Find your community drug take-back program or your pharmacy mail-back program, or flush them down the toilet, following guidance from the Food and Drug Administration (www.fda.gov/Drugs/Resour cesForYou). ? Visit www.cdc.gov/drugoverdose to learn about the risks of opioids abuse and overdose. ? If you believe you may be struggling wit (more content not included)... Normal [facility] XR Abdomen 1 Viewon 11-24-19 XR Abdomen 1 View Exam Date/Time: 11/22/2022 23:13 EDT Reason for Exam: Flank pain Report IMPRESSION: THERE ARE NO ACUTE CHANGES CLINICAL HISTORY: Flank pain COMPARISON: NONE. KUB FINDINGS: There are no distended loops of bowel. There is no evidence of obstruction. Overlying bowel gas and contents limit evaluation for renal stones. There are no acute osseous changes. Ordering Provider: Gaby Turner FINAL REPORT Dictated: 11/23/2022 7:23 am Chano Hamilton MD, V. Signed (Electronic Signature): 11/23/2022 7:23 am Signed by: Chano Hamilton MD, V. Transcribed by: CHERYL Technologist: BHARAT Technical Comments Radiation Dose: Ka,r in mGy = na DAP = na Normal [facility] Auto Diffon 11-22-2022 Basophils/100 WBC (Bld) 0.6 % Normal 0.0-2.0 [facility] Comment on above: Order Comment: Order Added by Discern Expert. Performed By: #### 2 078820, 5265956, 7739965, 25366605, 6462688, 6327693 #### [facility] Laboratory [address] [place] [address] Basophils/Leukocytes Auto (Bld) [Pure # fraction] 0.0 E9/L Normal 0.0-0.2 [facility] Comment on above: Order Comment: Order Added by Carson Expert. Performed By: #### 2 376089, 8989446, 0656021, 61985451, 0496605, 1020420 #### [facility] [address] [place] [address] Eosinophils/100 WBC (Bld) 1.5 % Normal 0.0-8.0 [facility] Comment on above: Order Comment: Order Added by Discern Expert. Performed By: #### 2 378213, 1163883, 3823610, 88200493, 1490783, 6302976 #### [facility] [address] [place] [address] 12765 Eosinophils/Leukocytes Auto (Bld) [Pure # fraction] 0.1 E9/L Normal 0.0-0.5 [facility] Comment on above: Order Comment: Order Added by Carson Expert. Performed By: #### 2 473260, 1675808, 0992761, 05679476, 8739567, 1711534 #### [facility] [address] [place] [address] 75788 Lymphocytes/100 WBC (Bld) 33.5 % Normal 14.0-50.0 [facility] Comment on above: Order Comment: Order Added by Carson Expert. Performed By: #### 2 956944, 2174703, 7414646, 96745875, 4055822, 7639037 #### [facility] [address] [place] [address] 24524 Lymphocytes/Leukocytes Auto (Bld) [Pure # fraction] 2.6 E9/L Normal 1.0-4.0 [facility] Comment on above: Order Comment: Order Added by Carson Expert. Performed By: #### 2 023112, 9501002, 5294087, 39922660, 9724802, 0471849 #### [facility] [address] [place] [address] 33540 Monocytes/100 WBC (Bld) 8.6 % Normal 4.0-14.0 [facility] Comment on above: Order Comment: Order Added by Discern Expert. Performed By: #### 2 867645, 7587715, 8094137, 97918786, 8269094, 1554367 #### [facility] [address] [place] [address] Monocytes/Leukocytes Auto (Bld) [Pure # fraction] 0.7 E9/L Normal 0.2-1.0 [facility] Comment on above: Order Comment: Order Added by Discern Expert. Performed By: #### 2 507932, 1211311, 1068554, 44267600, 1792590, 2084945 #### [facility] [address] [place] [address] Neutrophils/100 WBC (Bld) 55.8 % Normal 36.0-75.0 [facility] Comment on above: Order Comment: Order Added by Discern Expert. Performed By: #### 2 494320, 6790098, 6635948, 51384051, 6585125, 0105651 #### [facility] [address] [place] [address] 73512 Neutrophils/Leukocytes Auto (Bld) [Pure # fraction] 4.3 E9/L Normal 2.0-7.5 [facility] Comment on above: Order Comment: Order Added by Discern Expert. Performed By: #### 2 500846, 6555502, 1083879, 45260194, 7681989, 9214663 #### [facility] [address] [place] [address]46 BMPon 11-22-2022 Creatinine [Mass/Vol] 1.0 mg/dL Normal 0.5-1.3 [facility] Comment on above: Performed By: #### 2 142178, 8223959, 5603913, 61460012, 0611144, 3895730 #### [facility] [address] [place] [address] Urea nitrogen [Mass/Vol] 16 mg/dL Normal 5-21 [facility] Comment on above: Performed By: #### 2 081959, 4443115, 4780725, 95702846, 9229455, 0974153 #### [facility] [address] [place] [address] Urea nitrogen/Creatinine [Mass ratio] 16 No Units Normal 10-20 [facility] Comment on above: Performed By: #### 2 779235, 3691338, 4416575, 92408531, 8918159, 9141185 #### [facility] [address] [place] [address] Anion gap [Moles/Vol] 15 mmol/L Normal 6-16 [facility] Comment on above: Performed By: #### 2 258190, 7941662, 9875504, 96566510, 5825531, 3309362 #### [facility] [address] [place] [address] Calcium [Mass/Vol] 9.6 mg/dL Normal 8.9-11.1 [facility] Comment on above: Performed By: #### 2 114237, 2628639, 8988787, 46348240, 9516598, 8792302 #### [facility] [address] [place] [address] Chloride [Moles/Vol] 107 mmol/L Normal 101-111 [facility] Comment on above: Performed By: #### 2 514291, 4494229, 2590133, 45130379, 4595791, 0469004 #### [facility] [address] [place] [address] CO2 [Moles/Vol] 19 mmol/L Low 21-31 [facility] Comment on above: Performed By: #### 2 786882, 1457846, 0555151, 55182022, 3353850, 6687594 #### [facility] [address] [place] [address] Glucose [Mass/Vol] 97 mg/dL Normal 55-199 [facility] Comment on above: Result Comment: If t his glucose result represents a fasting glucose, interpretation should refer to the following reference range: 55-99 mg/dL Performed By: #### 2 625138, 8903131, 9667469, 05980765, 7085227, 8123851 #### [facility] [address] [place] [address] Potassium [Moles/Vol] 3.9 mmol/L Normal 3.5-5.3 [facility] Comment on above: Performed By: #### 2 605388, 1359248, 5451141, 89011510, 4110939, 2658798 #### [facility] [address] [place] [address] Sodium [Moles/Vol] 137 mmol/L Normal 135-145 [facility] Comment on above: Performed By: #### 2 715390, 4868130, 0592764, 59172156, 1606802, 3536439 #### [facility] [address] [place] [address] 92635 CBC w/ Auto Diffon Erythrocyte distribution width (RBC) [Ratio] 13.0 % Normal 10.9-14.2 [facility] Comment on above: Performed By: #### 2 267098, 4110996, 7640712, 11239878, 3761937, 4727392 #### [facility] [address] [place] [address]52 Hematocrit (Bld) [Volume fraction] 42.7 % Normal 34.0-46.0 [facility] Comment on above: Performed By: #### 2 140299, 1018988, 1791386, 54003340, 8568218, 0816575 #### [facility] [address] [place] [address] Hemoglobin (Bld) [Mass/Vol] 14.6 g/dL Normal 12.0-16.0 [facility] Comment on above: Performed By: #### 2 351682, 8150639, 2612804, 18249017, 8906400, 7922881 #### [facility] [address] [place] [address] MCH (RBC) [Entitic mass] 31.7 pg Normal 27.0-34.0 [facility] Comment on above: Performed By: #### 2 773967, 9021288, 5226423, 13679421, 3382660, 0389745 #### [facility] [address] [place] [address] 22861 MCHC (RBC) [Mass/Vol] 34.1 g/dL Normal 31.4-36.0 [facility] Comment on above: Performed By: #### 2 235248, 8838626, 2435871, 55455953, 5933064, 0777804 #### [facility] [address] [place] [address]127 MCV (RBC) [Entitic vol] 93.1 fL Normal 80.0-100.0 [facility] Comment on above: Performed By: #### 2 412690, 6992248, 2684868, 72765248, 0828257, 2969418 #### [facility] [address] [place], [place] [address] Platelet mean volume (Bld) [Entitic vol] 8.8 fL Normal 6.4-10.8 [facility] Comment on above: Performed By: #### 2 488397, 3221644, 5242941, 55156045, 2397464, 8521724 #### [facility] [address] [place] [address]591 Platelets (Bld) [#/Vol] 199.0 E9/L Normal 150.0-500.0 [facility] Comment on above: Performed By: #### 2 426656, 3442612, 0662565, 75762818, 6797037, 6008143 #### [facility] [address] [place] [address] 50855 RBC (Bld) [#/Vol] 4.6 E12/L Normal 4.3-5.9 [facility] Comment on above: Performed By: #### 2 749254, 7008205, 2425403, 32097621, 2132185, 9851639 #### [facility] [address] [place] [address]115 WBC corrected for nucl RBC Auto (Bld) [#/Vol] 7.7 E9/L Normal 4.0-11.0 [facility] Comment on above: Performed By: #### 2 946364, 1098219, 2840547, 06778148, 8581491, 8659764 #### [facility] [address] [place] [address] CHEMISTRYOrdered By: SYSTEM SYSTEM on 11-22-2022 Albumin [Mass/Vol] 4.5 g/dL Normal 3.3 - 5.0 gm/dL [facility] Albumin/Globulin [Mass ratio] 1.3 {ratio} Normal 1.1 - 2.2 [facility] ALP [Catalytic activity/Vol] 42 [iU]/d Normal 21 - 98 Int._Unit/L [facility] ALT No additional P-5'-P [Catalytic activity/Vol] 36 [iU]/d Normal 6 - 46 Int._Unit/L [facility] Anion gap [Moles/Vol] 15 mmol/L Normal 6 - 16 mEq/L [facility] AST [Catalytic activity/Vol] 26 [iU]/d Normal 5 - 43 Int._Unit/L [facility] Bilirubin [Mass/Vol] 0.6 mg/dL Normal 0.0 - 1 .1 mg/dL [facility] Bilirubin.direct [Mass/Vol] mg/dL Normal 0.1 - 0.4 mg/dL [facility] Bilirubin.indirect [Mass or moles/Vol] Unable to Calculate mg/dL Invalid Interpretation Code 0.1 - 0.9 mg/dL [facility] Calcium [Mass/Vol] 9.6 mg/dL Normal 8.9 - 11. 1 mg/dL [facility] Chloride [Moles/Vol] 107 mmol/L Normal 101 - 1 11 mmol/L [facility] CO2 [Moles/Vol] 19 mmol/L Low 21 - 31 mmol/L [facility] Creatinine [Mass/Vol] 1.0 mg/dL Normal 0.5 - 1.3 mg/dL [facility] GFR/1.73 sq M.predicted among non-blacks MDRD (S/P/Bld) [Vol rate/Area] 76 mL/min/1.73 m2 Normal >=59mL/min/ 1.73 m2 [facility] Chem S Globulin (S) [Mass/Vol] 3.4 g/dL Normal 1.4 - 4.0 gm/dL [facility] Glucose [Mass/Vol] 97 mg/dL Normal 55 - 199 mg/dL [facility] Lipase [Catalytic activity/Vol] 28 U/L Normal 13 - 58 unit/L [facility] Potassium [Moles/Vol] 3.9 mmol/L Normal 3.5 - 5.3 mmol/L [facility] Protein [Mass/Vol] 7.9 g/dL High 6.0 - 7.8 gm/dL [facility] Sodium [Moles/Vol] 137 mmol/L Normal 135 - 145 mmol/L [facility] Urea nitrogen [Mass/Vol] 16 mg/dL Normal 5 - 21 mg/dL [facility] Urea nitrogen/Creatinine [Mass ratio] 16 mg/mg Normal 10 - 20 [facility] Consent for Treatmenton Consent for Treatment [id number] Normal [facility] HEMATOLOGYOrdered By: SYSTEM SYSTEM on 11-22-2022 Basophils/100 WBC (Bld) 0.6 % Normal 0.0 - 2.0 % [facility] HemeAutoSS Basophils/Leukocytes Auto (Bld) [Pure # fraction] 0.0 E9/L Normal 0.0 - 0.2 E9/L [facility]eAuto[facility] Eosinophils/100 WBC (Bld) 1.5 % Normal 0.0 - 8.0 % [facility]eAutoSS Eosinophils/Leukocytes Auto (Bld) [Pure # fraction] 0.1 E9/L Normal 0.0 - 0.5 E9/L [facility]eAuto[facility] Lymphocytes/100 WBC (Bld) 33.5 % Normal 14.0 - 50.0 % [facility] HemeAutoSS Lymphocytes/Leukocytes Auto (Bld) [Pure # fraction] 2.6 E9/L Normal 1.0 - 4.0 E9/L [facility] HemeAutoSS Monocytes/100 WBC (Bld) 8.6 % Normal 4.0 - 14.0 % [facility] HemeAutoSS Monocytes/Leukocytes Auto (Bld) [Pure # fraction] 0.7 E9/L Normal 0.2 - 1.0 E9/L [facility]eAutoSS Neutrophils/100 WBC (Bld) 55.8 % Normal 36.0 - 75.0 % [facility]eAutoSS Neutrophils/Leukocytes Auto (Bld) [Pure # fraction] 4.3 E9/L Normal 2.0 - 7.5 E9/L [facility] HEMATOLOGYOrdered By: Tanvi Agrawal on 11-22-2022 Erythrocyte distribution width (RBC) [Ratio] 13.0 % Normal 10.9 - 14.2 % [facility] Hematocrit (Bld) [Volume fraction] 42.7 % Normal 34.0 - 46.0 % [facility]eAuto[facility] Hemoglobin (Bld) [Mass/Vol] 14.6 g/dL Normal 12.0 - 16.0 gm/dL [facility]eAuto[facility] MCH (RBC) [Entitic mass] 31.7 pg Normal 27.0 - 34.0 pg [facility] MCHC (RBC) [Mass/Vol] 34.1 g/dL Normal 31.4 - 36.0 gm/dL [facility]eAuto[facility] MCV (RBC) [Entitic vol] 93.1 fL Normal 80.0 - 100.0 fL [facility]eAutoSS Platelet mean volume (Bld) [Entitic vol] 8.8 fL Normal 6.4 - 10.8 fL [facility]eAuto[facility] Platelets (Bld) [#/Vol] 199.0 E9/L Normal 150. 0 - 500.0 E9/L [facility]eAuto[facility] RBC (Bld) [#/Vol] 4.6 E12/L Normal 4.3 - 5.9 E12/L [facility] WBC corrected for nucl RBC Auto (Bld) [#/Vol] 7.7 E9/L Normal 4.0 - 11.0 E9/L [facility]eAuto[facility] Hep Func Panelon 11-22-2022 Bilirubin.indirect [Mass or moles/Vol] UTC Abnormal 0.1-0.9 [facility] Comment on above: Result Comment: Resu lt verified by Discern Rule. Performed result UTC (Unable to Calculate) was sent as an Alpha code due the inability to calculate a valid numeric value. Performed By: #### 2 186032, 5037300, 1188413, 66422213, 1029625, 5812622 #### [facility] [address] [place] [address] Albumin [Mass/Vol] 4.5 g/dL Normal 3.3-5.0 [facility] Comment on above: Performed By: #### 2 389629, 2773555, 5688410, 48765875, 2229156, 4529408 #### [facility] [address] [place] [address] 08979 Albumin/Globulin (S) [Mass conc ratio] 1.3 Normal 1.1-2.2 [facility] Comment on above: Performed By: #### 2 443570, 7587446, 5848167, 97265779, 2818943, 2848136 #### [facility] [address] [place] [address] 82171 ALP [Catalytic activity/Vol] 42 Int._Unit/L Normal 21-98 [facility] Comment on above: Performed By: #### 2 962745, 5094952, 3014973, 05065473, 7734303, 0391479 #### [facility] [address] [place] [address] 30286 ALT No additional P-5'-P [Catalytic activity/Vol] 36 Int._Unit/L Normal 6-46 [facility] Comment on above: Performed By: #### 2 463260, 9600122, 4937074, 43724721, 9146402, 6290575 #### [facility] [address] [place] [address] 77245 AST [Catalytic activity/Vol] 26 Int._Unit/L Normal 5-43 [facility] Comment on above: Performed By: #### 2 386845, 4042868, 8957263, 35864093, 9259076, 1361188 #### [facility] [address] [place] [address] Bilirubin [Mass/Vol] 0.6 mg/dL Normal 0.0-1.1 [facility] Comment on above: Performed By: #### 2 382528, 0011317, 4649276, 32014537, 4591524, 8021204 #### [facility] [address] [place] [address] Globulin (S) [Mass/Vol] 3.4 g/dL Normal 1.4-4.0 [facility] Comment on above: Performed By: #### 2 148134, 4929238, 1880648, 40150965, 2568641, 9140663 #### [facility] [address] [place] [address] Protein [Mass/Vol] 7.9 g/dL High 6.0-7.8 [facility] Comment on above: Performed By: #### 2 802668, 7804130, 1972967, 34850800, 1321082, 0870867 #### [facility] [address] [place] [address] Bilirubin.direct [Mass/Vol] mg/dL Normal 0.1-0.4 [facility] Comment on above: Performed By: #### 2 363777, 7806971, 4783159, 95813851, 8961716, 5605967 #### [facility] [address] [place] [address] Laboratory - Microbiology an d Antimicrobial susceptibilityOrdered By: Sherice Espinosa on 11-22-2022 Bacteria identified Cx Nom (U) 500 cfu/ml Mixed skin contaminants [facility] Lipase Levelon 11-22-2022 Lipase [Catalytic activity/Vol] 28 U/L Normal 13-58 [facility] Comment on above: Performed By: #### 2 997264, 0475220, 1110495, 20458626, 5432295, 3945001 #### [facility] [address] [place] [address] SEROLOGYOrdered By: Mario orellana on 11-22-2022 HCG.beta subunit (U) [Moles/Vol] Negative Normal [facility] Man Sero U BetaHcg Qualon 11-22-2022 HCG.beta subunit (U) [Moles/Vol] Negative Normal [facility] Comment on above: Performed By: #### 1 0421523, 0609025, 93909662 #### [facility] [address] [place] [address] UA With Cult Reflexon 2022 Bacteria LM Ql (Urine sed) 2+ /HPF Abnormal Trace [facility] Comment on above: Performed By: #### 1 7190628, 7900680, 16188227 #### [facility] [address] [place] [address] Bilirubin Ql (U) Negative Normal Negative [facility] Comment on above: Performed By: #### 1 2226555, 5817504, 17988654 #### [facility] [address] [place] [address]150 Clarity (U) CLEAR Normal Clear [facility] Comment on above: Performed By: #### 1 0078545, 4654697, 33909671 #### [facility] [address] [place] [address] 55874 Color (U) YELLOW Normal Yellow [facility] Comment on above: Performed By: #### 1 7860658, 7547258, 19287838 #### [facility] [address] [place] [address] 76622 Epithelial cells.squamous LM.HPF (Urine sed) [#/Area] 5-8 Normal 0-2 [facility] Comment on above: Performed By: #### 1 2579949, 8075522, 35590160 #### [facility] [address] [place] [address]53[address] Glucose Test strip (U) [Mass/Vol] Negative Normal Negative [facility] Comment on above: Performed By: #### 1 8709623, 0755307, 47401736 #### [facility] [address] [place] [address] Hemoglobin Ql (U) Negative Normal Negative [facility] Comment on above: Performed By: #### 1 3171499, 2947999, 35475432 #### [facility] [address] [place] [address] Ketones (U) [Mass/Vol] Negative Normal Negative [facility] Comment on above: Performed By: #### 1 2964070, 3905572, 21131389 #### [facility] [address] [place] [address] [place].plasma/[place]. RBC (Bld) [Mass ratio] 0-3 Normal 0-3 [facility] Comment on above: Performed By: #### 1 8241475, 9016602, 08751431 #### [facility] [address] [place] [address] Mucus Ql (Urine sed) TRACE Normal Fish [facility] Comment on above: Performed By: #### 1 9329756, 4897835, 45096427 #### [facility] [address] [place] [address] Nitrite Ql (U) Negative Normal Negative [facility] Comment on above: Performed By: #### 1 5229841, 3210671, 18037338 #### [facility] [address] [place] [address] pH (U) 6.0 [pH] Invalid Interpretation Code 5.0-9.0 [facility] Comment on above: Performed By: #### 1 7222844, 8870839, 97906354 #### [facility] [address] [place] [address] Protein (U) [Mass/Vol] Negative Normal Negative [facility] Comment on above: Performed By: #### 1 7222797, 9211164, 38545202 #### [facility] [address] [place] [address] Specific gravity (U) [Rel density] 1.025 Invalid Interpretation Code 1.005-1.030 [facility] Comment on above: Performed By: #### 1 3203720, 2483869, 33807243 #### [facility] [address] [place] [address] Type of Urine collection method Clean Catch Normal [facility] Comment on above: Performed By: #### 1 9852789, 6592819, 72880800 #### [facility] [address] [place] [address] Urobilinogen Qn (U) 0.2 {Elba'U}/dL Normal 0.0-1.0 [facility] Comment on above: Performed By: #### 1 8440441, 3436759, 48321934 #### [facility] [address] [place] [address] WBC Auto Ql (U) Negative Normal Negative [facility] Comment on above: Performed By: #### 1 1723492, 1915308, 78576738 #### [facility] [address] [place] [address]59[address] WBC LM.HPF (Urine sed) [#/Area] 0-5 Normal 0-5 [facility] Comment on above: Performed By: #### 1 7888151, 9838559, 54763648 #### [facility] [address] [place] [address] URINALYSISOrdered By: Mario howell on 11-22-2022 Bacteria LM Ql (Urine sed) 2+ /HPF Invalid Interpretation Code Trace/HPF [facility] UA Auto SS Bilirubin Ql (U) Negative (11/22/22 7:19 PM) Normal Negative [facility] UA Auto SS Clarity (U) Clear (11/22/22 7:19 PM) Normal Clear [facility] UA Auto SS Color (U) Yellow (11/22/22 7:19 PM) Normal Yellow [facility] UA Auto SS Epithelial cells.squamous LM.HPF (Urine sed) [#/Area] 5-8 /HPF Normal 0-2/HPF [facility] UA Auto SS Glucose Test strip (U) [Mass/Vol] Negative (11/22/22 7:19 PM) Normal Negative [facility] UA Auto SS Hemoglobin Ql (U) Negative (11/22/22 7:19 PM) Normal Negative [facility] UA Auto SS Ketones (U) [Mass/Vol] Negative (11/22/22 7:19 PM) Normal Negative [facility] UA Auto SS [place].plasma/[place]. RBC (Bld) [Mass ratio] 0-3 /HPF Normal 0-3/HPF [facility] UA Auto SS Mucus Ql (Urine sed) Trace (11/22/22 7:19 PM) Normal [facility] UA Auto SS Nitrite Ql (U) Negative (11/22/22 7:19 PM) Normal Negative [facility] UA Auto SS pH (U) 6.0 *NA* (11/22/22 7:19 PM) Invalid Interpretation Code 5.0 - 9.0 FT UA Auto SS Protein (U) [Mass/Vol] Negative (11/22/22 7:19 PM) Normal Negative [facility] UA Auto SS Specific gravity (U) [Rel density] 1.025 *NA* (11/22/22 7:19 PM) Invalid Interpretation Code 1.005 - 1.030 FT UA Auto SS UA Spec Desc Clean Catch (11/22/22 7:19 PM) Normal [facility] UA Auto SS Urobilinogen Qn (U) [id number] {Elba'U}/dL Normal 0.0 - 1.0 EU/dL FT UA Auto SS WBC Auto Ql (U) Negative (11/22/22 7:19 PM) Normal Negative [facility] UA Auto SS WBC LM.HPF (Urine sed) [#/Area] 0-5 /HPF Normal 0-5/HPF [facility] UA Auto SS eGFRon 11-22-2022 GFR/1.73 sq M.predicted among non-blacks MDRD (S/P/Bld) [Vol rate/Area] 76 mL/min/1.73 m2 Normal >=59 [facility] Comment on above: Order Comment: Order added by Discern Expert. Result Comment: French Drawer fahad kidney disease could be indicated at eGFR's of less than 60 mL/min/1.73m2. Kidney failure is indicated at less than 15 mL/min/1.73m2. Performed By: #### 2 [id number], [id number], [id number], [id number], [id number], [id number] #### [facility] [address] [place] [id number] HEAD WO CONon 08-14-2022 CT HEAD WO CON EXAMINATION: CT HEAD WO CON HISTORY: HEADACHE - TECHNIQUE: CT head without contrast. All CT scans at this facility use dose modulation, iterative reconstruction, and/or weight based dosing when appropriate to reduce radiation dose to as low as reasonably achievable. COMPARISON: CT brain 06/16/2013 RESULT: Post-operative change: None. Acute change: No evidence of an acute intracranial process. Hemorrhage: No evidence of acute intracranial hemorrhage. Mass Lesion / Mass Effect: No evidence of an intracranial mass or extraaxial fluid collection. No significant mass effect. Chronic change: None apparent. Parenchyma: No significant parenchymal volume loss. Ventricles: Normal caliber and morphology. Other: The calvarium, skull base, imaged paranasal sinuses, mastoids, orbits and extracranial soft tissues are unremarkable. IMPRESSION: 1. No acute intracranial abnormality; no acute infarct, intracranial hemorrhage or extra-axial collection. Electronically authenticated by: ROC ARNOLD Date: 2022-08-13 22:12 Normal [facility] CBC AUTO DIFFon 08-13-2022 BASO # 0.0 103/ul Normal 0.0-0.1 [facility] Comment on above: Performed By: #### C BC ####[facility] [address] [place] [address]Dr. Douglas Tucker Basophils/100 WBC (Bld) 0.3 % Normal 0.2-2.0 [facility] Comment on above: Performed By: #### C BC ####[facility] [address] [place] [address]DrHernandez Tucker EO # 0.0 103/ul Normal 0.0-0.7 [facility] Comment on above: Performed By: #### C BC ####[facility] [address] [place], [place] [address]Dr. Douglas Tucker Eosinophils/100 WBC (Bld) 0.1 % Critically low 0.9-7.0 [facility] Comment on above: Performed By: #### C BC ####[facility] [address] [place], [place] [address]DrHernandez Tucker Erythrocyte distribution width (RBC) [Ratio] 12.3 % Normal 11.0-15.0 [facility] Comment on above: Performed By: #### C BC ####[facility] [address] [place], [place] [address]DrHernandez Tucker Hematocrit (Bld) [Volume fraction] 41.6 % Normal 36.0-48.0 [facility] Comment on above: Performed By: #### C BC ####[facility] [address] [place] [address]Dr. Douglas Tucker Hemoglobin (Bld) [Mass/Vol] 13.6 g/dL Normal 12.0-16.0 [facility] Comment on above: Performed By: #### C BC ####[facility] [address] [place] [address]Dr. Umuana Garrett IG # 0.05 10e3/ul Critically high 0.00-0.03 [facility] Comment on above: Performed By: #### C BC ####[facility] [address] [place], [place] [address]Dr. Douglas Tucker IG % 0.3 % Normal 0.0-0.5 [facility] Comment on above: Performed By: #### C BC ####[facility] [address] [place], [place] [address]Dr. Douglas Tucker LYMPH # 3.0 103/ul Normal 1.2-3.8 [facility] Comment on above: Performed By: #### C BC ####[facility] [address] [place], [place] [address]Dr. Umuana Tucker Lymphocytes/100 WBC (Bld) 20.9 % Normal 20.5-60.0 [facility] Comment on above: Performed By: #### C BC ####[facility] [address] [place] [address]Dr. Douglas Tucker MANUAL DIFF REQ NO Normal [facility] Comment on above: Performed By: #### C BC ####[facility] [address] [place] [address]Dr. Douglas Tucker MCH (RBC) [Entitic mass] 31.7 pg Normal 26.7-34.0 [facility] Comment on above: Performed By: #### C BC ####[facility] [address] [place] [address]Dr. Douglas Tucker MCHC (RBC) [Mass/Vol] 32.7 g/dL Normal 29.9-35.2 [facility] Comment on above: Performed By: #### C BC ####[facility] [address] [place] [phone] Douglas Tucker MCV (RBC) [Entitic vol] 97.0 fL Normal 81.0-99.0 [facility] Comment on above: Performed By: #### C BC ####[facility] [address] [place] [address]DrHernandez Douglas Garrett MONO # 1.0 103/ul Critically high 0.3-0.8 [facility] Comment on above: Performed By: #### C BC ####[facility] [address] [place] [address]DrHernandez Tucker Monocytes/100 WBC (Bld) 7.2 % Normal 1.7-12.0 [facility] Comment on above: Performed By: #### C BC ####[facility] [address] [place], [place] [address]DrHernandez Douglas Tucker NEUT # 10.2 103/ul Critically high 1.4-6.5 [facility] Comment on above: Performed By: #### C BC ####[facility] [address] [place], [place] [address]DrHernandez Umuana Tucker Neutrophils/100 WBC (Bld) 71.2 % Normal 43.0-75.0 [facility] Comment on above: Performed By: #### C BC ####[facility] [address] [place], [place] [address]DrHernandez Tucker Platelet mean volume (Bld) [Entitic vol] 10.6 fL Normal 9.5-13.5 [facility] Comment on above: Performed By: #### C BC ####[facility] [address] [place] [id number] Tucker PLT 229 103/ul Normal 150-450 [facility] Comment on above: Performed By: #### C BC ####[facility] [address] [place] [id number] Tucker RBC 4.29 106/ul Normal 4.20-5.40 [facility] Comment on above: Performed By: #### C BC ####[facility] [address] [place] [address]Dr. Douglas Tucker WBC 14.4 103/ul Critically high 4.0-11.0 [facility] Comment on above: Performed By: #### C BC ####[facility] [address] [place] [id number]. Douglas Tucker PROF CHEM 8 (BAS METB)on Anion gap [Moles/Vol] 14.6 mmol/L Normal [facility] Comment on above: Performed By: #### T SH, BMP #### [facility] [address] [place] [address] [address] Douglas Tucker Calcium [Mass/Vol] 9.0 mg/dL Normal 8.5-10.1 [facility] Comment on above: Performed By: #### T ZAIDA, BMP #### [facility] [address] [place] [address] [address] Douglas Tucker Chloride [Moles/Vol] 107 mmol/L Normal 98-107 [facility] Comment on above: Performed By: #### T SH, BMP #### [facility] [address] [place] [address] [address] Douglas Tucker CO2 [Moles/Vol] 23.2 mmol/L Normal 21.0-32.0 [facility] Comment on above: Performed By: #### T SH, BMP #### [facility] [address] [place] [address] [address] Douglas Tucker Creatinine [Mass/Vol] 0.88 mg/dL Normal 0.55-1.02 [facility] Comment on above: Performed By: #### T SH, BMP #### [facility] [address] [place] [address] Dr. Douglas Tucker EGFR-AF SAO TOMEAN >60 Normal >=60 [facility] Comment on above: Performed By: #### T SH, BMP #### [facility] [address] [place] [address] [address] Douglas Tucker EGFR-NON AF SAO TOMEAN >60 Normal >=60 [facility] Comment on above: Performed By: #### T SH, BMP #### [facility] [address] [place] [address] [address] Douglas Tucker Glucose [Mass/Vol] 100 mg/dL Normal 74-106 [facility] Comment on above: Performed By: #### T SH, BMP #### [facility] [address] [place] [address] Dr. Douglas Tucker Potassium [Moles/Vol] 3.8 mmol/L Normal 3.5-5.1 [facility] Comment on above: Performed By: #### T SH, BMP #### [facility] [address] [place] [address] Dr. Douglas Tucker Sodium [Moles/Vol] 141 mmol/L Normal 136-145 [facility] Comment on above: Performed By: #### T SH, BMP #### [facility] [address] [place] [address] Dr. Douglas Tucker Urea nitrogen [Mass/Vol] 10.0 mg/dL Normal 7.0-18.0 [facility] Comment on above: Performed By: #### T SH, BMP #### [facility] [address] [place] [address] Dr. Douglas Tucker Urea nitrogen/Creatinine [Mass ratio] 11.4 mg/mg Normal [facility] Comment on above: Performed By: #### T SH, BMP #### [facility] [address] [place] [address] Dr. Douglas Tucker TSHon 08-13-2022 TSH 0.730 uIU/mL Normal 0.358-3.740 [facility] Comment on above: Performed By: #### T ZAIDA, BMP #### [facility] [address] [place] [address] Dr. Douglas Tucker Automated erythrocytes count in urine sediment (number/area)Ordered By: Mario Glasgow on 06-14-2022 RBC Auto (Urine sed) [#/Area] None seen [HPF] 0-4 [facility] Automated leukocytes count i n urine sediment (number/area)Ordered By: Mario Glasgow on 06-14-2022 WBC Auto (Urine sed) [#/Area] 20-49 [HPF] 0-4 [facility] Bilirubin Test strip Ql (U)O rdered By: Mario Glasgow on 06-14-2022 Bilirubin Ql (U) Negative Negative [facility] Color Auto (U)Ordered By: Pee on 06-14-2022 Color (U) Yellow Yellow [facility] Dipstick and Microscopicon 0 06-14-2022 Appearance (U) Cloudy Critically abnormal Clear [facility] Comment on above: Order Comment: Reaso n for Exam Urinary frequency Name Collection Type:: Voided Performed By: #### P T, CBC, CMP, PTT #### [facility] [address] [place] [address] [place] Bacteria,Urine 2+ High None Seen [facility] Comment on above: Order Comment: Reaso n for Exam Urinary frequency Name Collection Type:: Voided Performed By: #### P T, CBC, CMP, PTT #### [facility] [address] [place] [id number] [place] Bilirubin,Urine Negative Normal Negative [facility] Comment on above: Order Comment: Reaso n for Exam Urinary frequency Name Collection Type:: Voided Performed By: #### P T, CBC, CMP, PTT #### [facility] [address] [place] [address] [place] Color (U) Yellow Normal Yellow [facility] Comment on above: Order Comment: Reaso n for Exam Urinary frequency Name Collection Type:: Voided Performed By: #### P T, CBC, CMP, PTT #### [facility] [address] [place] [address] [place] Glucose Ql (U) Normal Normal Normal [facility] Comment on above: Order Comment: Reaso n for Exam Urinary frequency Name Collection Type:: Voided Performed By: #### P T, CBC, CMP, PTT #### [facility] [address] [place] [address] [place] Hyaline Casts,Urine 0-8 Normal 0-8 [facility] Comment on above: Order Comment: Reaso n for Exam Urinary frequency Name Collection Type:: Voided Result Comment: PERF ORMED BY: [place] [address] PATHOLOGIST BODY ART TECHNICIAN LEV HERNÁNDEZ M.D. Performed By: #### P T, CBC, CMP, PTT #### [facility] [address] [place] [address] Ketones Ql (U) Negative Normal Negative [facility] Comment on above: Order Comment: Reaso n for Exam Urinary frequency Name Collection Type:: Voided Performed By: #### P T, CBC, CMP, PTT #### [facility] [address] [place] [address] Leukocyte esterase Test strip Ql (U) 3+ High Negative [facility] Comment on above: Order Comment: Reaso n for Exam Urinary frequency Name Collection Type:: Voided Performed By: #### P T, CBC, CMP, PTT #### [facility] [address] [place] [address] [place] Nitrite,Urine Negative Normal Negative [facility] Comment on above: Order Comment: Reaso n for Exam Urinary frequency Name Collection Type:: Voided Performed By: #### P T, CBC, CMP, PTT #### [facility] [address] [place] [address] [place] Occult Blood,Urine Negative Normal Negative [facility] Comment on above: Order Comment: Reaso n for Exam Urinary frequency Name Collection Type:: Voided Result Comment: PERF ORMED BY: [place] [address] PATHOLOGIST BODY ART TECHNICIAN LEV HERNÁNDEZ M.D. Performed By: #### P T, CBC, CMP, PTT #### [facility] [address] [place], [place] [id number] [place] pH (U) 5.5 [pH] Normal 5.0-9.0 [facility] Comment on above: Order Comment: Reaso n for Exam Urinary frequency Name Collection Type:: Voided Performed By: #### P T, CBC, CMP, PTT #### [facility] [address] [place] [address] [place] Protein,Urine Negative Normal Negative [facility] Comment on above: Order Comment: Reaso n for Exam Urinary frequency Name Collection Type:: Voided Performed By: #### P T, CBC, CMP, PTT #### [facility] [address] [place] [address] RBC,Urine None Seen Normal 0-4 [facility] Comment on above: Order Comment: Reaso n for Exam Urinary frequency Name Collection Type:: Voided Performed By: #### P T, CBC, CMP, PTT #### [facility] [address] [place] [address] Specificy [place],Urine 1.013 Normal 1.001-1.030 [facility] Comment on above: Order Comment: Reaso n for Exam Urinary frequency Name Collection Type:: Voided Performed By: #### P T, CBC, CMP, PTT #### [facility] [address] [place] [address] Squamous Epithelial Cell,Urine 5-9 High 0-2 [facility] Comment on above: Order Comment: Reaso n for Exam Urinary frequency Name Collection Type:: Voided Performed By: #### P T, CBC, CMP, PTT #### [facility] [address] [place] [address] Urobilinogen,Urine Normal Normal Normal [facility] Comment on above: Order Comment: Reaso n for Exam Urinary frequency Name Collection Type:: Voided Performed By: #### P T, CBC, CMP, PTT #### [facility] [address] [place] [address] WBC,Urine 20-49 High 0-4 [facility] Comment on above: Order Comment: Reaso n for Exam Urinary frequency Name Collection Type:: Voided Performed By: #### P T, CBC, CMP, PTT #### [facility] [address] [place] [address] Ketones Auto test strip (U) [Mass/Vol]Ordered By: Mario Glasgow on 06-14-2022 Ketones (U) [Mass/Vol] Negative Negative [facility] - UrinalysisOrder ed By: Mario Glasgow on 06-14-2022 Hyaline casts LM Ql (Urine sed) 0-8 [LPF] 0-8 [facility] Nitrite Test strip Ql (U)Ord ered By: Mario Glasgow on 06-14-2022 Nitrite Ql (U) Negative Negative [facility] Protein Auto test strip (U) [Mass/Vol]Ordered By: Mario Glasgow on 06-14-2022 Protein (U) [Mass/Vol] Negative Negative [facility] Specific gravity Auto test s trip (U) [Rel density]Ordered By: Mario Glasgow on 06-14-2022 Specific gravity (U) [Rel density] 1.013 1.001-1.030 [facility] Squamous epithelial cells de tection in urine sediment by light microscopyOrdered By: Mario Glasgow on 06-14-2022 Epithelial cells.squamous LM Ql (Urine sed) 5-9 [HPF] 0-2 [facility] Urine Cultureon 06-14-2022 Bacteria identified Cx Nom (U) Reason for Exam Urinary frequency Urine ORGANISM: Strep. agalactiae Grp B (O:B) [place] Count <10,000 PERFORMED BY: [place] [address] PATHOLOGIST BODY ART TECHNICIAN LEV HERNÁNDEZ M.D. [facility] Comment on above: Performed By: #### P T, CBC, CMP, PTT #### [address] Urine bacteria detection by automated methodOrdered By: Mario Glasgow on 06-14-2022 Bacteria Auto Ql (U) 2+ None Seen [facility] Urine clarity by refractomet ry automatedOrdered By: Mario Glasgow on 06-14-2022 Clarity Refractometry automated (U) Cloudy Clear [facility] Urine culture routineOrdered By: Mario Glasgow on 06-14-2022 Bacteria identified Cx Nom (U) Strep. agalactiae Grp B [facility] Urine glucose measurement by automated test strip (mass/volume)Ordered By: Mario Glasgow on 06-14-2022 Glucose Auto test strip (U) [Mass/Vol] Normal mg/dL Normal [facility] Urine hemoglobin detection b y automated test stripOrdered By: Mariosimi Glasgwo on 06-14-2022 Hemoglobin Auto test strip Ql (U) Negative Negative [facility] Urine leukocyte esterase det ection by automated test stripOrdered By: Mario Glasgow on 06-14-2022 Leukocyte esterase Auto test strip Ql (U) 3+ Negative [facility] Urobilinogen Auto test strip (U) [Mass/Vol]Ordered By: Mario Glasgow on 06-14-2022 Urobilinogen (U) [Mass/Vol] Normal mg/dL Normal [facility] pH Auto test strip (U)Ordere d By: Mariosimi Glasgow on 06-14-2022 pH (U) 5.5 [pH] 5.0-9.0 [facility] HCG ( test) IA.rapi d Ql (U)Ordered By: Figueroa Galindo on 05-02-2022 HCG ( test) Ql (U) Negative [facility] HCG,Urineon 05-02-2022 Beta HCG ( test) Ql (U) Negative Normal [facility] Comment on above: Result Comment: PERF ORMED BY: [place] [address] PATHOLOGIST BODY ART TECHNICIAN LEV HERNÁNDEZ M.D. Performed By: #### P T, CBC, CMP, PTT #### [address] [place] 05-02-2022 L ----- Specimen: [id number] Received: 05/02/22 Status: ALEJANDRA Marvin Num: [id number] Spec Type: Surgical Subm Dr: Rell Garcia, Tissues: A Uterus w/ or w/o tubes ovaries except neoplastic or prolap (UTERUS/CERVIX) Procedures: HE/4, Gross/Micro L5 Age/ Patient Sex Location Account Attending Physician Sully Enriquez 32/F [place] [id number] Rell Garcia DO SPEC NUM: [id number] RECD: 05/02/22 STATUS: ALEJANDRA WONG NUM: [id number] MEGAN: 05/02/22 [facility] DR: Rell Garcia DO ENTERED: 05/02/22 [facility] DR: RUSS TYPE: Surgical DEPT: S ORDERED: HE/4, Gross/Micro L5 ORDERED: HE/4, Gross/Micro L5 Pathological Diagnosis Uterus with cervix, total hysterectomy: - Cervix with no significant histopathology. - Proliferative phase endometrium. - Adenomyosis. - Serosa with no significant histopathology. Clinical Information DUB, dysmenorrhea, grams 142 Gross Description Received in formalin labeled with the patient's name, number and uterus cervix is a 140 g, 9.5 x 6.5 x 5.0 cm uterus with a purple pink serosa. No adnexa are received. The exocervix is vazquez-pink with a central 0.7 cm slitlike os. The endocervix is vazquez red, glistening. The vazquez-red endometrium averages 0.2 cm in thickness. The pink-vazquez, trabecular myometrium measures up to 2.2 cm in thickness. No myometrial lesions are identified. Principal Biostatistician sections are submitted in 4 cassettes as follows: A1 - Anterior cervix A2 - Posterior cervix A3 - Anterior endomyometrium A4 - Posterior endomyometrium Specimen: [id number] Received: 05/02/22 Status: ALEJANDRA Wong Num: [id number] Spec Type: Surgical Subm Dr: Rell Garcia,DO Tissues: A Uterus w/ or w/o tubes ovaries except neoplastic or prolap (UTERUS/CERVIX) Procedures: HE/4, Gross/Micro L5 Patient: Sully Enriquez [id number] (Continued) Specimen: [id number] Received: 05/02/22 (Continued) Signed (signature on file) Tristan Vázquez MD 05/03/22 1036 Specimen: [id number] Received: 05/02/22 Status: ALEJANDRA Wong Num: [id number] Spec Type: Surgical Subm Dr: Rell Garcia,DO Tissues: A Uterus w/ or w/o tubes ovaries except neoplastic or prolap (UTERUS/CERVIX) Procedures: HE/Sudeep, Gross/Micro L5 Patient: Sully Enriquez [id number] (Continued) Specimen: [id number] Received: 05/02/22 (Continued) Microscopic Description Four glass slides with H E stained material have been examined. The microscopic findings support the above pathologic diagnosis. CPT Codes 64159 Specimen: [id number] Received: 05/02/22 Status: ALEJANDRA Wong Num: [id number] Spec Type: Surgical Subm Dr: Rell Garcia DO Tissues: A Uterus w/ or w/o tubes ovaries except neoplastic or prolap (UTERUS/CERVIX) Procedures: HE/Sudeep, Gross/Micro L5 Patient: Sully Enriquez [id number] (Continued) Signed (signature on file) Tristan Vázquez MD 05/03/22 1036 Normal [facility] Type and Screenon 05-02-2022 ABO and Rh group Nom (Bld) Blood group B Rh(D) positive Normal [facility] Comment on above: Result Comment: PERF ORMED BY: [facility] [place] [address] PATHOLOGIST BODY ART TECHNICIAN LEV HERNÁNDEZ M.D. CULTURE URINEon 04-25-2022 CULTURE URINE Culture Observations : MODERATE GROWTH OF MIXED GENITAL CRICKET. NO POTENTIAL PATHOGENS SEEN. Normal [facility] Comment on above: Performed By: #### U RCX ####[facility] [address] [place] [address]Dr. Douglas Tuckre ER URINE PROFILEon 3 Bilirubin Ql (U) Negative Normal NEGATIVE [facility] Comment on above: Performed By: #### P REGU UMICRO, ERUR #### [facility] [address] [place] [address] [address] Douglas Tucker Clarity (U) SL CLOUDY Abnormal CLEAR [facility] Comment on above: Performed By: #### P REGU UMICRO, ERUR #### [facility] [address] [place] [address] [address] Douglas Tucker Color (U) YELLOW Normal YELLOW [facility] Comment on above: Performed By: #### P REGUCHERYLICRO, ERUR #### [facility] [address] [place] [address] [address] Douglas GIRON A micrscopic examina tion will be performed if indicated. Normal [facility] Comment on above: Performed By: #### P REGUCHERYLICRO, ERUR #### [facility] [address] [place] [address] [address] Douglas Tucker Glucose Ql (U) Negative Normal NEGATIVE [facility] Comment on above: Performed By: #### P REGU UMICRO, ERUR #### [facility] [address] [place] [address] [address] Douglas Tucker Hemoglobin Ql (U) SMALL Abnormal NEGATIVE [facility] Comment on above: Performed By: #### P REGUCHERYLICRO, ERUR #### [facility] [address] [place] [address] [address] Douglas Tucker Ketones Ql (U) Negative Normal NEGATIVE [facility] Comment on above: Performed By: #### P REGUMONALISARO, ERUR #### [facility] [address] [place] [address] Dr. Douglas Tucker LEUKOCYTES Negative Normal NEGATIVE [facility] Comment on above: Performed By: #### BLAINE MALAVE, NIRALIR #### [facility] [address] [place] [address] [address] Douglas Tucker Nitrite Ql (U) Negative Normal NEGATIVE [facility] Comment on above: Performed By: #### BLAINE MALAVE, ERUR #### [facility] [address] [address] [address] Douglas Tucker pH (U) 6.0 [pH] Normal 5-9 [facility] Comment on above: Performed By: #### BLAINE MALAVE, NIRALIR #### [facility] [address] [place] [address] Dr. Douglas Tucker SPEC GRAVITY >=1.030 Abnormal 1.005-<=1.0 25 [facility] Comment on above: Performed By: #### BLAINE MALAVE, NIRALIR #### [facility] [address] [place] [address] Dr. Douglas Tucker UA PROTEIN TRACE Normal NEGATIVE/ TRACE [facility] Comment on above: Performed By: #### BLAINE MALAVE ERUR #### [facility] [address] [place] [address] Dr. Douglas Tucker UR MICRO IND INDICATED Normal [facility] Comment on above: Performed By: #### BLAINE MALAVE, NIRALIR #### [facility] [address] [address] [address] Douglas Tucker Urobilinogen Qn (U) 0.2 {Elba'U}/dL Normal 0.2 - 1. 0 [facility] Comment on above: Performed By: #### BLAINE MALAVE, NIRALIR #### [facility] [address] [place] [address] Dr. Douglas Tucker URon 04-25-2022 , QUAL Negative Normal NEGATIVE [facility] Comment on above: Performed By: #### BLAINE MALAVE, ERUR #### [facility] [address] [address] [address] Douglas Tucker URINE MICROSCOPIC ONLYon BACTERIA MODERATE Abnormal NONE SEEN [facility] Comment on above: Performed By: #### P REGFred UMICRO, ERUR #### [facility] [address] [address] [address] Douglas Tucker Bacteria identified Cx Nom (U) INDICATED Normal [facility] Comment on above: Performed By: #### P REGFred UMICRO, ERUR #### [facility] [address] [address] [address] Douglsa Tucker CAST NONE SEEN Normal NONE SEEN [facility] Comment on above: Performed By: #### P BUDDY UMICRO, ERUR #### [facility] [address] [address] [address] Dogulas Tucker Crystals LM Nom (Urine sed) NONE SEEN Normal NONE SEEN [facility] Comment on above: Performed By: #### P CHERYL GOODWINICRO, ERUR #### [facility] [address] [address] [address] Douglas Tucker Epithelial cells LM Ql (Urine sed) MODERATE Abnormal NONE SEEN /RARE [facility] Comment on above: Performed By: #### P CHERYL GOODWINICRO, ERUR #### [facility] [address] [address] [address] Douglas Tucker MUCOUS NONE SEEN Normal NONE SEEN [facility] Comment on above: Performed By: #### P MONALISA GOODWINRO, ERUR #### [facility] [address] [address] [address] Douglas Tucker RBC 2-5 Abnormal 0-2 [facility] Comment on above: Performed By: #### P CHERYL GOODWINICRO, ERUR #### [facility] [address] [address] [address] Douglas Tucker WBC 0-2 Abnormal NONE SEEN [facility] Comment on above: Performed By: #### P MONALISA GOODWINRO, ERUR #### [facility] [address] [address] [address] Douglas Tucker COVID-19 Antigenon 3 COVID-19 Antigen Healthcare Worker?: N Reference Range: Negative Negative results, from patients with symptom onset beyond five days, should be treated as presumptive and confirmation with a molecular assay, if necessary, for patient management, may be performed. Negative results do not rule out COVID-19 and should not be used as the sole basis for treatment or patient management decisions, including infection control decisions. Negative results should be considered in the context of a patient's recent exposures, history and the presence of clinical signs and symptoms consistent with COVID-19. The Kevin SARS Antigen LILLY does not differentiate between SARS-CoV and SARS-CoV-2. This test was developed and its performance characteristic determined by [employer] and validated at [facility]. This test has not been FDA cleared or approved. This test has been authorized by FDA under an Emergency Use Authorization (EUA). This test has been validated in accordance with the FDA's Guidance Document (Policy for Diagnostics Testing in Laboratories Certified to Perform High Complexity Testing under CLIA prior to Emergency Use Authorization for Coronavirus Disease-2019 during the Public Health Emergency) issued on July 22, 2019. This test is only authorized for the duration of time the declaration that circumstances exist justifying the authorization of the emergency use of in vitro diagnostic tests for detection of SARS-CoV-2 virus and/or diagnosis of COVID-19 infection under section 564(b)(1) of the Act, 21 U.S.C. 360bbb-3(b)(1), unless the authorization is terminated or revoked sooner. SARS-CoV+SARS-CoV-2 (COVID-19) Ag [Presence] in Respiratory specimen by Rapid immunoassay Negative for SARS Antigen by LILLY PERFORMED BY: [facility] [address] [place] [address] PATHOLOGIST BODY ART TECHNICIAN LEV HERNÁNDEZ M.D. [facility] Comment on above: Performed By: #### C OVID-19 KEVIN, SOFIANEG #### [facility] [address] COVID-19 SOFIAOrdered By: Adal Garcia on 04-23-2022 SARS-CoV+SARS-CoV-2 (COVID-19) Ag IA.rapid Ql (Resp) Negative Negative [facility] Comment on above: This is a duplicate Kevin SARS Antigen (LILLY) result to be used for statistical tracking purpose only. No Panel InformationOrdered By: Rell Garcia on 04-23-2022 SARS Antigen (LFIA) [facility] Kevin Ag Negativeon 04-23-19 23 Kevin Ag Negative Negative Normal Negative [facility] Comment on above: Result Comment: This is a duplicate Kevin SARS Antigen (LILLY) result to be used for statistical tracking purpose only. PERFORMED BY: [place] [address] PATHOLOGIST BODY ART TECHNICIAN LEV HERNÁNDEZ M.D. Performed By: #### P T, CBC, CMP, PTT #### [address] Activated partial thrombopla stin time (aPTT) in platelet poor plasma by coagulation aOrdered By: Rell Garcia on 04-10-2022 aPTT Coag (PPP) [Time] 31.6 s 25.1-36.5 [facility] Albumin [Mass/volume] in Ser um or PlasmaOrdered By: Rell Garcia on 04-10-2022 Albumin [Mass/Vol] 4.4 g/dL 3.2-5.5 [facility] Automated erythrocytes count in urine sediment (number/area)Ordered By: Rell Garcia on 04-10-2022 RBC Auto (Urine sed) [#/Area] None seen [HPF] 0-4 [facility] Automated leukocytes count i n urine sediment (number/area)Ordered By: Rell Garcia on 04-10-2022 WBC Auto (Urine sed) [#/Area] 20-49 [HPF] 0-4 [facility] Automated urine hyaline cast s count (number/volume)Ordered By: Rell Garcia on 04-10-2022 Hyaline casts Auto (U) [#/Vol] None seen [LPF] 0-1 [facility] Basophils Auto (Bld) [#/Vol] Ordered By: Rell Garcia on 04-10-2022 Basophils (Bld) [#/Vol] 0.0 10*3/uL 0.0-0.2 [facility] Basophils/100 WBC Auto (Bld) Ordered By: Rell Garcia on 04-10-2022 Basophils/100 WBC (Bld) 0.4 % . F [facility] Bilirubin Test strip Ql (U)O rdered By: Rell Garcia on 04-10-2022 Bilirubin Ql (U) Negative Negative [facility] Casts typing in urine sedime nt by light microscopyOrdered By: Rell Garcia on 04-10-2022 Casts LM Nom (Urine sed) None seen [LPF] None Seen [facility] Color Auto (U)Ordered By: Adal Garcia on 04-10-2022 Color (U) Yellow Yellow [facility] Complete Blood Count Auto Di ffon 04-10-2022 Basophils (Bld) [#/Vol] 0.0 10*3/uL Normal 0.0-0.2 [facility] Comment on above: Result Comment: PERF ORMED BY: [place] [address] PATHOLOGIST BODY ART TECHNICIAN LEV HERNÁNDEZ M.D. Performed By: #### P T, CBC, CMP, PTT #### [address] Basophils/100 WBC (Bld) 0.4 % Normal . [facility] Comment on above: Performed By: #### P T, CBC, CMP, PTT #### [facility] [address] [place] [address] [place] Eosinophils (Bld) [#/Vol] 0.3 10*3/uL Normal 0.0-0.45 [facility] Comment on above: Performed By: #### P T, CBC, CMP, PTT #### [facility] [address] [place] [address] [place] Eosinophils/100 WBC (Bld) 3.6 % Normal . [facility] Comment on above: Performed By: #### P T, CBC, CMP, PTT #### [facility] [address] [place] [address] [place] Erythrocyte distribution width (RBC) [Ratio] 13.0 % Normal 11.9-15.3 [facility] Comment on above: Performed By: #### P T, CBC, CMP, PTT #### [address] Hematocrit (Bld) [Volume fraction] 44.2 % Normal 34.0-46.4 [facility] Comment on above: Performed By: #### P T, CBC, CMP, PTT #### [address] Hemoglobin (Bld) [Mass/Vol] 14.8 g/dL Normal 11.8-15.4 [facility] Comment on above: Performed By: #### P T, CBC, CMP, PTT #### [address] Lymphocytes (Bld) [#/Vol] 3.0 10*3/uL Normal 1.00-4.8 [facility] Comment on above: Performed By: #### P T, CBC, CMP, PTT #### [address] Lymphocytes/100 WBC (Bld) 35.3 % Normal . [facility] Comment on above: Performed By: #### P T, CBC, CMP, PTT #### [address] MCH (RBC) [Entitic mass] 31.8 pg Normal 24.7-34.3 [facility] Comment on above: Performed By: #### P T, CBC, CMP, PTT #### [address] MCV (RBC) [Entitic vol] 95.0 fL Normal 80-100 [facility] Comment on above: Performed By: #### P T, CBC, CMP, PTT #### [address] Mean Corpuscular HGB Conc 33.5 g/dL Normal 32.0-35.0 [facility] Comment on above: Performed By: #### P T, CBC, CMP, PTT #### [facility] [address] [place] [address] [place] Monocytes (Bld) [#/Vol] 0.6 10*3/uL Normal 0.0-0.8 [facility] Comment on above: Performed By: #### P T, CBC, CMP, PTT #### [facility] [address] Monocytes/100 WBC (Bld) 7.0 % Normal . [facility] Comment on above: Performed By: #### P T, CBC, CMP, PTT #### [facility] [address] [place] [address] Neutrophils (Bld) [#/Vol] 4.6 10*3/uL Normal 1.8-7.7 [facility] Comment on above: Performed By: #### P T, CBC, CMP, PTT #### [facility] [address] [place] [address] Neutrophils/100 WBC (Bld) 53.7 % Normal . [facility] Comment on above: Performed By: #### P T, CBC, CMP, PTT #### [facility] [address] [place] [address] NRBC% 0.1 /100{WBC} Normal 0-0.5 [facility] Comment on above: Performed By: #### P T, CBC, CMP, PTT #### [facility] [address] [place] [address] Platelet mean volume (Bld) [Entitic vol] 9.1 fL Normal 6.3-10.7 [facility] Comment on above: Performed By: #### P T, CBC, CMP, PTT #### [facility] [address] [place] [address] [place] Platelets (Bld) [#/Vol] 192 10*3/uL Normal 150-450 [facility] Comment on above: Performed By: #### P T, CBC, CMP, PTT #### [facility] [address] [place] [address] [place] RBC (Bld) [#/Vol] 4.65 10*6/uL Normal 3.60-5.00 [facility] Comment on above: Performed By: #### P T, CBC, CMP, PTT #### [address] WBC (Bld) [#/Vol] 8.6 10*3/uL Normal 3.8-11.6 [facility] Comment on above: Performed By: #### P T, CBC, CMP, PTT #### [address] Comprehensive Metabolic Pane mitchel 04-10-2022 Albumin [Mass/Vol] 4.4 g/dL Normal 3.2-5.5 [facility] Comment on above: Performed By: #### P T, CBC, CMP, PTT #### [address] Albumin/Globulin [Mass ratio] 1.4 {ratio} Normal [facility] Comment on above: Performed By: #### P T, CBC, CMP, PTT #### [address] ALP [Catalytic activity/Vol] 47 U/L Normal 32-92 [facility] Comment on above: Result Comment: PERF ORMED BY: [place] [address] PATHOLOGIST BODY ART TECHNICIAN LEV HERNÁNDEZ M.D. Performed By: #### P T, CBC, CMP, PTT #### [address] ALT [Catalytic activity/Vol] 19 U/L Normal 10-60 [facility] Comment on above: Performed By: #### P T, CBC, CMP, PTT #### [address] Anion gap [Moles/Vol] 13.2 mmol/L Normal 6.0-15.0 [facility] Comment on above: Performed By: #### P T, CBC, CMP, PTT #### [address] AST [Catalytic activity/Vol] 18 U/L Normal 10-42 [facility] Comment on above: Performed By: #### P T, CBC, CMP, PTT #### [facility] [address] [place] [address] Bilirubin [Mass/Vol] 0.7 mg/dL Normal 0.3-1.2 [facility] Comment on above: Performed By: #### P T, CBC, CMP, PTT #### [address] Calcium [Mass/Vol] 9.5 mg/dL Normal 8.2-10.2 [facility] Comment on above: Performed By: #### P T, CBC, CMP, PTT #### [address] Chloride [Moles/Vol] 106 mmol/L Normal 95-114 [facility] Comment on above: Performed By: #### P T, CBC, CMP, PTT #### [address] CO2 [Moles/Vol] 18.9 mmol/L Low 22.0-30.0 [facility] Comment on above: Performed By: #### P T, CBC, CMP, PTT #### [address] Creatinine [Mass/Vol] 0.80 mg/dL Normal 0.44-1.03 [facility] Comment on above: Performed By: #### P T, CBC, CMP, PTT #### [address] Estimated GFR ( Margi > 60 [facility] Comment on above: Result Comment: GFR estimated reference range: According to KDOQI guidelines, <60 ml/min/1.73m2 is sufficient to diagnose a patient with chronic kidney disease. Performed By: #### P T, CBC, CMP, PTT #### [address] Estimated GFR (Non- Am > 60 [facility] Comment on above: Performed By: #### P T, CBC, CMP, PTT #### [facility] [address] Globulin (S) [Mass/Vol] 3.1 g/dL Normal F [facility] Comment on above: Performed By: #### P T, CBC, CMP, PTT #### [facility] [address] Glucose [Mass/Vol] 88 mg/dL Normal 70-100 [facility] Comment on above: Result Comment: [facility] Glucose Reference Range is dependent on time and content of last meal. Glucose of more than 200 mg/dL in a nonstressed, ambulatory subject supports the diagnosis of Diabetes Mellitus. ADA recommended reference range Performed By: #### P T, CBC, CMP, PTT #### [facility] [address] Potassium [Moles/Vol] 4.1 mmol/L Normal 3.5-5.1 [facility] Comment on above: Performed By: #### P T, CBC, CMP, PTT #### [facility] [address] [place] [address] [place] Protein [Mass/Vol] 7.5 g/dL Normal 6.1-7.9 [facility] Comment on above: Performed By: #### P T, CBC, CMP, PTT #### [facility] [address] Sodium [Moles/Vol] 134 mmol/L Low 136-146 [facility] Comment on above: Performed By: #### P T, CBC, CMP, PTT #### [facility] [address] [place] [address] [place] Urea nitrogen [Mass/Vol] 14 mg/dL Normal 9-23 [facility] Comment on above: Performed By: #### P T, CBC, CMP, PTT #### [facility] [address] [place] [address] [place] Creatinine and Glomerular fi ltration rate.predicted panel (S/P/Bld)Ordered By: Rell Garcia on 04-10-2022 Creatinine [Mass/Vol] 0.80 mg/dL 0.44-1.03 [facility] Dipstick and Microscopicon 1 06-11-2021 Appearance (U) Cloudy Critically abnormal Clear [facility] Comment on above: Order Comment: Name Collection Type:: Clean-Voided Midstream Performed By: #### C UU, ADDONUAPLUS #### [facility] [address] [place] [address] Bacteria,Urine 2+ High None Seen [facility] Comment on above: Order Comment: Name Collection Type:: Clean-Voided Midstream Performed By: #### C UU, ADDONUAPLUS #### [facility] [address] [place] [address] [place] Bilirubin,Urine Negative Normal Negative [facility] Comment on above: Order Comment: Name Collection Type:: Clean-Voided Midstream Performed By: #### C UU, ADDONUAPLUS #### [facility] [address] [place] [address] [place] Color (U) Yellow Normal Yellow [facility] Comment on above: Order Comment: Name Collection Type:: Clean-Voided Midstream Performed By: #### C UU, ADDONUAPLUS #### [facility] [address] [place] [address] [place] Glucose Ql (U) Normal Normal Normal [facility] Comment on above: Order Comment: Name Collection Type:: Clean-Voided Midstream Performed By: #### C UU, ADDONUAPLUS #### [facility] [address] [place] [address] [place] Hyaline Casts,Urine None Seen Normal 0-1 [facility] Comment on above: Order Comment: Name Collection Type:: Clean-Voided Midstream Performed By: #### C UU, ADDONUAPLUS #### [facility] [address] [place] [address] [place] Ketones Ql (U) Negative Normal Negative [facility] Comment on above: Order Comment: Name Collection Type:: Clean-Voided Midstream Performed By: #### C UU, ADDONUAPLUS #### [facility] [address] [place] [address] [place] Leukocyte esterase Test strip Ql (U) 3+ High Negative [facility] Comment on above: Order Comment: Name Collection Type:: Clean-Voided Midstream Performed By: #### C UU, ADDONUAPLUS #### [address] Nitrite,Urine Negative Normal Negative [facility] Comment on above: Order Comment: Name Collection Type:: Clean-Voided Midstream Performed By: #### C UU, ADDONUAPLUS #### [address] Occult Blood,Urine Negative Normal Negative [facility] Comment on above: Order Comment: Name Collection Type:: Clean-Voided Midstream Result Comment: PERF ORMED BY: [place] [address] PATHOLOGIST BODY ART TECHNICIAN LEV HERNÁNDEZ M.D. Performed By: #### C UU, ADDONUAPLUS #### [address] Other Casts,Urine None Seen Normal None Seen [facility] Comment on above: Order Comment: Name Collection Type:: Clean-Voided Midstream Result Comment: PERF ORMED BY: [place] [address] PATHOLOGIST BODY ART TECHNICIAN LEV HERNÁNDEZ M.D. Performed By: #### C UU, ADDONUAPLUS #### [address] pH (U) 5.5 [pH] Normal 5.0-9.0 [facility] Comment on above: Order Comment: Name Collection Type:: Clean-Voided Midstream Performed By: #### C UU, ADDONUAPLUS #### [address] Protein,Urine Negative Normal Negative [facility] Comment on above: Order Comment: Name Collection Type:: Clean-Voided Midstream Performed By: #### C UU, ADDONUAPLUS #### [address] RBC,Urine None Seen Normal 0-4 [facility] Comment on above: Order Comment: Name Collection Type:: Clean-Voided Midstream Performed By: #### C UU, ADDONUAPLUS #### [facility] [address] [place] [address] Specificy [place],Urine 1.016 Normal 1.001-1.030 [facility] Comment on above: Order Comment: Name Collection Type:: Clean-Voided Midstream Performed By: #### C UU, ADDONUAPLUS #### [facility] [address] [place] [address] Squamous Epithelial Cell,Urine 10-19 High 0-2 [facility] Comment on above: Order Comment: Name Collection Type:: Clean-Voided Midstream Performed By: #### C UU, ADDONUAPLUS #### [facility] [address] [place] [address] Urobilinogen,Urine Normal Normal Normal [facility] Comment on above: Order Comment: Name Collection Type:: Clean-Voided Midstream Performed By: #### C UU, ADDONUAPLUS #### [facility] [address] [place] [address] WBC,Urine 20-49 High 0-4 [facility] Comment on above: Order Comment: Name Collection Type:: Clean-Voided Midstream Performed By: #### C UU, ADDONUAPLUS #### [facility] [address] [place] [address] Eosinophils Auto (Bld) [#/Vo l]Ordered By: Rell Garcia on 04-10-2022 Eosinophils (Bld) [#/Vol] 0.3 10*3/uL 0.0-0.45 [facility] Eosinophils/100 WBC Auto (Bl d)Ordered By: Rell Garcia on 04-10-2022 Eosinophils/100 WBC (Bld) 3.6 % . [facility] Erythrocyte distribution wid th Auto (RBC) [Ratio]Ordered By: Rell Garcia on 04-10-2022 Erythrocyte distribution width (RBC) [Ratio] 13.0 % 11.9-15.3 [facility] Estimated glomerular filtrat ion rate (GFR) non- AmericanOrdered By: Rell Garcia on 04-10-2022 GFR/1.73 sq M.predicted among non-blacks MDRD (S/P/Bld) [Vol rate/Area] > 60 mL/Min [facility] Globulin Calc (S) [Mass/Vol] Ordered By: Rell Garcia on 04-10-2022 Globulin (S) [Mass/Vol] 3.1 g/dL F [facility] Hematocrit Auto (Bld) [Volum e fraction]Ordered By: Rell Garcia on 04-10-2022 Hematocrit (Bld) [Volume fraction] 44.2 % 34.0-46.4 [facility] Hemoglobin [Mass/volume] in BloodOrdered By: Rell Garcia on 04-10-2022 Hemoglobin (Bld) [Mass/Vol] 14.8 g/dL 11.8-15.4 [facility] Ketones Auto test strip (U) [Mass/Vol]Ordered By: Rell Garcia on 04-10-2022 Ketones (U) [Mass/Vol] Negative Negative [facility] - CoagulationOrde red By: Rell Garcia on 04-10-2022 PT Coag (PPP) [Time] 10.8 s 9.0-12.9 [facility] Leukocytes [#/volume] correc armaan for nucleated erythrocytes in Blood by Automated counOrdered By: Rell Garcia on 04-10-2022 WBC corrected for nucl RBC Auto (Bld) [#/Vol] 8.6 10*3/uL 3.8-11.6 [facility] Lymphocytes Auto (Bld) [#/Vo l]Ordered By: Rell Garcia on 04-10-2022 Lymphocytes (Bld) [#/Vol] 3.0 10*3/uL 1.00-4.8 [facility] Lymphocytes/100 WBC Auto (Bl d)Ordered By: Rell Garcia on 04-10-2022 Lymphocytes/100 WBC (Bld) 35.3 % . [facility] MCH Auto (RBC) [Entitic mass ]Ordered By: Rell Garcia on 04-10-2022 MCH (RBC) [Entitic mass] 31.8 pg 24.7-34.3 [facility] MCHC Auto (RBC) [Mass/Vol]Or dered By: Rell Garcia on 04-10-2022 MCHC (RBC) [Mass/Vol] 33.5 g/dL 32.0-35.0 [facility] MCV Auto (RBC) [Entitic vol] Ordered By: Rell Garcia on 04-10-2022 MCV (RBC) [Entitic vol] 95.0 fL 80-100 F [facility] Monocytes Auto (Bld) [#/Vol] Ordered By: Rell Garcia on 04-10-2022 Monocytes (Bld) [#/Vol] 0.6 10*3/uL 0.0-0.8 [facility] Monocytes/100 WBC Auto (Bld) Ordered By: Rell Garcia on 04-10-2022 Monocytes/100 WBC (Bld) 7.0 % . [facility] Neutrophils Auto (Bld) [#/Vo l]Ordered By: Rell Garcia on 04-10-2022 Neutrophils (Bld) [#/Vol] 4.6 10*3/uL 1.8-7.7 [facility] Neutrophils/100 WBC Auto (Bl d)Ordered By: Rell Garcia on 04-10-2022 Neutrophils/100 WBC (Bld) 53.7 % . [facility] Nitrite Test strip Ql (U)Ord ered By: Rell Garcia on 04-10-2022 Nitrite Ql (U) Negative Negative [facility] No Panel InformationOrdered By: Rell Garcia on 04-10-2022 Estimated GFR () > 60 mL/Min [facility] Comment on above: GFR estimated refere nce range: According to KDOQI guidelines, <60 ml/min/1.73m2 is sufficient to diagnose a patient with chronic kidney disease. Pharmacy Creatinine Clearance (Chem N/A [facility] Nucleated erythrocytes [Pres ence] in Blood by Automated countOrdered By: Rell Garcia on 04-10-2022 Nucleated RBC Auto Ql (Bld) 0.1 /100{WBC} 0-0.5 [facility] [facility] Type and Screenon 2021 ABO and Rh group Nom (Bld) Blood group B Rh(D) positive Normal [facility] Comment on above: Order Comment: Date of Surgery: [id number] Partial Thromboplastin Timeo n 04-10-2022 aPTT Coag (Bld) [Time] 31.6 s Normal 25.1-36.5 [facility] Comment on above: Result Comment: PERF ORMED BY: [place] [address] PATHOLOGIST BODY ART TECHNICIAN LEV HERNÁNDEZ M.D. Performed By: #### P T, CBC, CMP, PTT #### [facility] [address] Platelet mean volume Auto (B ld) [Entitic vol]Ordered By: Rell Garcia on 04-10-2022 Platelet mean volume (Bld) [Entitic vol] 9.1 fL 6.3-10.7 [facility] Platelet poor plasma interna tional normalized ratio (INR) by coagulation assay (relatOrdered By: Rell Garcia on 04-10-2022 INR Coag (PPP) [Relative time] 1.0 {INR} [facility] Comment on above: INR Therapeutic Rang e A) Pre- and Peroperative OAT started two weeks before surgery. NOT HIP SURGERY: 1.5 - 2.5 HIP SURGERY: 2 - 3B) Primary and secondary prevention of venous THROMBOSIS: 2 - 3C) Active venous thrombosis, pulmonary embolismand prevention of recurrent venous thrombosis: 2 - 3D) Prevention of arterial thromboembolismincluding patients with mechanical heart valves: 3 - 4.5 Platelets Auto (Bld) [#/Vol] Ordered By: Rell Garcia on 04-10-2022 Platelets (Bld) [#/Vol] 192 10*3/uL 150-450 [facility] Protein Auto test strip (U) [Mass/Vol]Ordered By: Rell Garcia on 04-10-2022 Protein (U) [Mass/Vol] Negative Negative [facility] Protein [Mass/volume] in Ser um or PlasmaOrdered By: Rell Garcia on 04-10-2022 Protein [Mass/Vol] 7.5 g/dL 6.1-7.9 [facility] Prothrombin Time INRon 04-10 INR Coag (PPP) [Relative time] 1.0 {INR} Normal [facility] Comment on above: Result Comment: INR Therapeutic Range A) Pre- and Peroperative OAT started two weeks before surgery. NOT HIP SURGERY: 1.5 - 2.5 HIP SURGERY: 2 - 3 B) Primary and secondary prevention of venous THROMBOSIS: 2 - 3 C) Active venous thrombosis, pulmonary embolism and prevention of recurrent venous thrombosis: 2 - 3 D) Prevention of arterial thromboembolism including patients with mechanical heart valves: 3 - 4.5 Performed By: #### P T, CBC, CMP, PTT #### [facility] [address] PT Coag (PPP) [Time] 10.8 s Normal 9.0-12.9 [facility] Comment on above: Performed By: #### P T, CBC, CMP, PTT #### [facility] [address] RBC Auto (Bld) [#/Vol]Ordere d By: Rell Garcia on 04-10-2022 RBC (Bld) [#/Vol] 4.65 10*6/uL 3.60-5.00 [facility] Serum or plasma alanine venegas otransferase measurement without P-5'-P (enzymatic activiOrdered By: Rell Garcia on 04-10-2022 ALT No additional P-5'-P [Catalytic activity/Vol] 19 U/L 10-60 [facility] Serum or plasma albumin/glob ulin mass ratioOrdered By: Rell Garcia on 04-10-2022 Albumin/Globulin [Mass ratio] 1.4 {ratio} [facility] Serum or plasma alkaline molina sphatase measurement (enzymatic activity/volume)Ordered By: Rell Garcia on 04-10-2022 ALP [Catalytic activity/Vol] 47 U/L 32-92 [facility] Serum or plasma anion gap de terminationOrdered By: Rell Garcia on 04-10-2022 Anion gap [Moles/Vol] 13.2 mmol/L 6.0-15.0 [facility] Serum or plasma aspartate am inotransferase measurement (enzymatic activity/volume)Ordered By: Rell Garcia on 04-10-2022 AST [Catalytic activity/Vol] 18 U/L 10-42 [facility] Serum or plasma calcium liam urement (mass/volume)Ordered By: Rell Garcia on 04-10-2022 Calcium [Mass/Vol] 9.5 mg/dL 8.2-10.2 [facility] Serum or plasma chloride fransisca surement (moles/volume)Ordered By: Rell Garcia on 04-10-2022 Chloride [Moles/Vol] 106 mmol/L 95-114 [facility] Serum or plasma glucose liam urement (mass/volume)Ordered By: Rell Garcia on 04-10-2022 Glucose [Mass/Vol] 88 mg/dL 70-100 [facility] Comment on above: ADA recommended refe rence rangeRandom Glucose Reference Range is dependent on time and content of last meal. Glucose of more than 200 mg/dL in a nonstressed, ambulatory subject supports the diagnosis of Diabetes Mellitus. Serum or plasma potassium me asurement (moles/volume)Ordered By: Rell Garcia on 04-10-2022 Potassium [Moles/Vol] 4.1 mmol/L 3.5-5.1 [facility] Serum or plasma sodium measu rement (moles/volume)Ordered By: Rell Garcia on 04-10-2022 Sodium [Moles/Vol] 134 mmol/L 136-146 [facility] Serum or plasma total biliru bin measurement (mass/volume)Ordered By: Rell Garcia on 04-10-2022 Bilirubin [Mass/Vol] 0.7 mg/dL 0.3-1.2 [facility] Serum or plasma total carbon dioxide measurement (moles/volume)Ordered By: Rell Garcia on 04-10-2022 CO2 [Moles/Vol] 18.9 mmol/L 22.0-30.0 [facility] Serum or plasma urea nitroge n measurement (mass/volume)Ordered By: Rell Garcia on 04-10-2022 Urea nitrogen [Mass/Vol] 14 mg/dL - [facility] Specific gravity Auto test s trip (U) [Rel density]Ordered By: Rell Garcia on 04-10-2022 Specific gravity (U) [Rel density] 1.016 1.001-1.030 [facility] Squamous epithelial cells de tection in urine sediment by light microscopyOrdered By: Rell Garcia on 04-10-2022 Epithelial cells.squamous LM Ql (Urine sed) 10-19 [HPF] 0-2 [facility] Urine Cultureon 04-10-2022 Bacteria identified Cx Nom (U) 15,000 colonies/ml mixed bacterial skin contaminants 2 Days PERFORMED BY: [place] [address] PATHOLOGIST BODY ART TECHNICIAN LEV HERNÁNDEZ M.D. Normal [facility] Comment on above: Performed By: #### C UU, ADDONUAPLUS #### [address] Urine bacteria detection by automated methodOrdered By: Rell Garcia on 04-10-2022 Bacteria Auto Ql (U) 2+ None Seen [facility] Urine clarity by refractomet ry automatedOrdered By: Rell Garcia on 04-10-2022 Clarity Refractometry automated (U) Cloudy Clear [facility] Urine culture routineOrdered By: Rell Garcia on 04-10-2022 Bacteria identified Cx Nom (U) 2 Days [facility] Urine glucose measurement by automated test strip (mass/volume)Ordered By: Rell Garcia on 04-10-2022 Glucose Auto test strip (U) [Mass/Vol] Normal mg/dL Normal [facility] Urine hemoglobin detection b y automated test stripOrdered By: Rell Garcia on 04-10-2022 Hemoglobin Auto test strip Ql (U) Negative Negative [facility] Urine leukocyte esterase det ection by automated test stripOrdered By: Rell Garcia on 04-10-2022 Leukocyte esterase Auto test strip Ql (U) 3+ Negative [facility] Urobilinogen Auto test strip (U) [Mass/Vol]Ordered By: Rell Garcia on 04-10-2022 Urobilinogen (U) [Mass/Vol] Normal mg/dL Normal [facility] WBC Auto (Bld) [#/Vol]Ordere d By: Rell Garcia on 04-10-2022 WBC (Bld) [#/Vol] 8.6 10*3/uL 3.8-11.6 [facility] pH Auto test strip (U)Ordere d By: Rell Garcia on 04-10-2022 pH (U) 5.5 [pH] 5.0-9.0 [facility] XR ANKLE RT MIN 3 VIEWSon XR ANKLE RT MIN 3 VIEWS EXAM: XR ANKLE R T MIN 3 VIEWS HISTORY: Unspecified fall COMPARISON: 11/06/2014 TECHNIQUE: 3 views of the right ankle are performed. FINDINGS: There is no acute fracture. Similar small osteochondral lesion at the talar dome. Postoperative changes are partially seen within the first metatarsal. The ankle mortise is not widened. No significant soft tissue swelling. 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 No acute bony abnormality. Electronically authenticated by: LIZZIE YU Date: 2022-03-28 22:01 Normal [facility] XR SHOULDER LT 2V or >on XR SHOULDER LT 2V or > EXAM: XR SHOULDER LT 2V or >, XR SHOULDER LT 2V or >, XR HUMERUS LT MIN 2V HISTORY: Pain COMPARISON: None. TECHNIQUE: 4 views of the shoulder and 2 views of the humerus FINDINGS: No osseous lesion, fracture, dislocation or subluxation. Joint spaces are normal. No visualized effusion. No visualized soft tissue edema. IMPRESSION: Normal x-rays Electronically authenticated by: JASS GRISSOM Date: 2022-02-10 21:41 Normal [facility] CBC AUTO DIFFon 01-28-2022 BASO # 0.0 103/ul Normal 0.0-0.1 [facility] Comment on above: Performed By: #### C BC ####[facility] [address] [place] [id number]. Douglas Tucker Basophils/100 WBC (Bld) 0.7 % Normal 0.2-2.0 [facility] Comment on above: Performed By: #### C BC ####[facility] [address] [place] [id number] Tucker EO # 0.1 103/ul Normal 0.0-0.7 [facility] Comment on above: Performed By: #### C BC ####[facility] [address] [place] [id number] Tucker Eosinophils/100 WBC (Bld) 2.2 % Normal 0.9-7.0 [facility] Comment on above: Performed By: #### C BC ####[facility] [address] [place], [place] [address]Dr. Douglas Tucker Erythrocyte distribution width (RBC) [Ratio] 12.0 % Normal 11.0-15.0 [facility] Comment on above: Performed By: #### C BC ####[facility] [address] [place], [place] [address]Dr. Douglas Tucker Hematocrit (Bld) [Volume fraction] 41.3 % Normal 36.0-48.0 [facility] Comment on above: Performed By: #### C BC ####[facility] Bak[address] [place], [place] [address]Dr. Douglas Tucker Hemoglobin (Bld) [Mass/Vol] 13.7 g/dL Normal 12.0-16.0 [facility] Comment on above: Performed By: #### C BC ####[facility] A[address] [place], [place] [address]Dr. Douglas Tucker IG # 0.01 10e3/ul Normal 0.00-0.03 [facility] Comment on above: Performed By: #### C BC ####[facility] I[address] [place], [place] [address]Dr. Douglas Tucker IG % 0.2 % Normal 0.0-0.5 [facility] Comment on above: Performed By: #### C BC ####[facility] [address] [place], [place] [address]Dr. Douglas Tucker LYMPH # 2.1 103/ul Normal 1.2-3.8 [facility] Comment on above: Performed By: #### C BC ####[facility] [address] [place], [place] [address]Dr. Douglas Tucker Lymphocytes/100 WBC (Bld) 38.5 % Normal 20.5-60.0 [facility] Comment on above: Performed By: #### C BC ####[facility] [address] [place], [place] [address]DrHernandez Tucker MANUAL DIFF REQ NO Normal [facility] Comment on above: Performed By: #### C BC ####[facility] [address] [place], [place] [address]DrHernandez Tucker MCH (RBC) [Entitic mass] 31.9 pg Normal 26.7-34.0 [facility] Comment on above: Performed By: #### C BC ####[facility] [address] [place], [place] [address]DrHernandez Tucker MCHC (RBC) [Mass/Vol] 33.2 g/dL Normal 29.9-35.2 [facility] Comment on above: Performed By: #### C BC ####[facility] [address] [place], [place] [address]DrHernandez Tucker MCV (RBC) [Entitic vol] 96.0 fL Normal 81.0-99.0 [facility] Comment on above: Performed By: #### C BC ####[facility] [address] [place], [place] [address]DrHernandez Tucker MONO # 0.4 103/ul Normal 0.3-0.8 [facility] Comment on above: Performed By: #### C BC ####[facility] [address] [place], [place] [address]DrHernandez Tucker Monocytes/100 WBC (Bld) 7.8 % Normal 1.7-12.0 [facility] Comment on above: Performed By: #### C BC ####[facility] [address] [place], [place] [address]DrHernandez Tucker NEUT # 2.8 103/ul Normal 1.4-6.5 [facility] Comment on above: Performed By: #### C BC ####[facility] [address] [place], [place] [address]DrHernandez Tucker Neutrophils/100 WBC (Bld) 50.6 % Normal 43.0-75.0 [facility] Comment on above: Performed By: #### C BC ####[facility] [address] [place], [place] [address]DrHernandez Tucker Platelet mean volume (Bld) [Entitic vol] 10.7 fL Normal 9.5-13.5 [facility] Comment on above: Performed By: #### C BC ####[facility] [address] [place] [address]Dr. Douglas Tucker PLT 189 103/ul Normal 150-450 [facility] Comment on above: Performed By: #### C BC ####[facility] [address] [place] [address]DrHernandez Tucker RBC 4.30 106/ul Normal 4.20-5.40 [facility] Comment on above: Performed By: #### C BC ####[facility] [address] [place] [address]Dr. Douglas Tucker WBC 5.5 103/ul Normal 4.0-11.0 [facility] Comment on above: Performed By: #### C BC ####[facility] [address] [place] [address]Dr. Douglas Tucker CULTURE URINEon 01-28-2022 CULTURE URINE Culture Observations : MODERATE GROWTH OF MIXED GENITAL CRICKET. NO POTENTIAL PATHOGENS SEEN. Normal [facility] Comment on above: Performed By: #### U RCX ####[facility] [address] [place] [address]Dr. Douglas Tucker ER URINE PROFILEon 2 Bilirubin Ql (U) Negative Normal NEGATIVE [facility] Comment on above: Performed By: #### U MICRO, ERUR #### [facility] [address] [place] [address] [address] Douglas Tucker Clarity (U) CLEAR Normal CLEAR [facility] Comment on above: Performed By: #### U MICRO, ERUR #### [facility] [address] [place] [address] [address] Douglas Tucker Color (U) LT. YELLOW Normal YELLOW [facility] Comment on above: Performed By: #### U MICRO, ERUR #### [facility] [address] [place] [address] [address] Douglas Tucker ERUAHD A micrscopic examina tion will be performed if indicated. Normal [facility] Comment on above: Performed By: #### U MICRO, ERUR #### [facility] [address] [place] [address] [address] Douglas Tucker Glucose Ql (U) Negative Normal NEGATIVE [facility] Comment on above: Performed By: #### U MICRO, ERUR #### [facility] [address] [place] [address] [address] Douglas Tucker Hemoglobin Ql (U) TRACE-INTACT Abnormal NEGATIVE [facility] Comment on above: Performed By: #### U MICRO, ERUR #### [facility] [address] [place] [address] [address] Douglas Tucker Ketones Ql (U) Negative Normal NEGATIVE [facility] Comment on above: Performed By: #### U MICRO, ERUR #### [facility] [address] [place] [address] Dr. Douglas Tucker LEUKOCYTES TRACE Abnormal NEGATIVE [facility] Comment on above: Performed By: #### U MICRO, ERUR #### [facility] [address] [place] [address] Dr. Douglas Tucker Nitrite Ql (U) Negative Normal NEGATIVE [facility] Comment on above: Performed By: #### U MICRO, ERUR #### [facility] [address] [place] [address] Dr. Douglas Tucker pH (U) 6.5 [pH] Normal 5-9 [facility] Comment on above: Performed By: #### U MICRO, ERUR #### [facility] [address] [place] [address] [address] Douglas Tucker SPEC GRAVITY 1.020 Normal 1.005-<=1.0 25 [facility] Comment on above: Performed By: #### U MICRO, ERUR #### [facility] [address] [place] [address] Dr. Douglas Tucker UA PROTEIN Negative Normal NEGATIVE/ TRACE [facility] Comment on above: Performed By: #### U MICRO, ERUR #### [facility] [address] [place] [address] Dr. Douglas Tucker UR MICRO IND INDICATED Normal [facility] Comment on above: Performed By: #### U MICRO, ERUR #### [facility] [address] [place] [address] [address] Douglas Tucker Urobilinogen Qn (U) 0.2 {Elba'U}/dL Normal 0.2 - 1. 0 [facility] Comment on above: Performed By: #### U MICRO, ERUR #### [facility] [address] [place] [address] [address] Douglas Tucker PROF 14(COMP METB)on 022 Albumin [Mass/Vol] 3.9 g/dL Normal 3.4-5.0 [facility] Comment on above: Performed By: #### C MP ####[facility] [address] [place] [address]Dr. Douglas Tucker Albumin/Globulin [Mass ratio] 1.1 {ratio} Normal [facility] Comment on above: Performed By: #### C MP ####[facility] [address] [place], [place] [address]Dr. oDuglas Tucker ALP [Catalytic activity/Vol] 52 U/L Normal 46-116 [facility] Comment on above: Performed By: #### C MP ####[facility] [address] [place] [address]Dr. Douglas Tucker ALT [Catalytic activity/Vol] 31 U/L Normal 14-59 [facility] Comment on above: Performed By: #### C MP ####[facility] [address] [place] [address]Dr. Douglas Tucker Anion gap [Moles/Vol] 9.6 mmol/L Normal [facility] Comment on above: Performed By: #### C MP ####[facility] [address] [place] [address]Dr. Douglas Tucker AST [Catalytic activity/Vol] 15 U/L Normal 15-37 [facility] Comment on above: Performed By: #### C MP ####[facility] [address] [place], [place] [address]Dr. Douglas Tucker Bilirubin [Mass/Vol] 0.3 mg/dL Normal 0.2-1.0 [facility] Comment on above: Performed By: #### C MP ####[facility] [address] [place], [place] [address]Dr. Douglas Tucker Calcium [Mass/Vol] 8.6 mg/dL Normal 8.5-10.1 [facility] Comment on above: Performed By: #### C MP ####[facility] [address] [place], [place] [address]Dr. Douglas Tucker Chloride [Moles/Vol] 107 mmol/L Normal 98-107 [facility] Comment on above: Performed By: #### C MP ####[facility] [address] [place], [place] [address]Dr. Douglas Tucker CO2 [Moles/Vol] 27.4 mmol/L Normal 21.0-32.0 [facility] Comment on above: Performed By: #### C MP ####[facility] [address] [place], [place] [address]Dr. Douglas Garrett Creatinine [Mass/Vol] 0.90 mg/dL Normal 0.55-1.02 [facility] Comment on above: Performed By: #### C MP ####[facility] [address] [place], [place] [address]Dr. Douglas Garrett EGFR-AF SAO TOMEAN >60 Normal >=60 [facility] Comment on above: Performed By: #### C MP ####[facility] [address] [place], [place] [address]Dr. Umuana Garrett EGFR-NON AF SAO TOMEAN >60 Normal >=60 [facility] Comment on above: Performed By: #### C MP ####[facility] [address] [place], [place] [address]Dr. Douglas Tucker Globulin (S) [Mass/Vol] 3.4 g/dL Normal [facility] Comment on above: Performed By: #### C MP ####[facility] [address] [place], [place] [address]Dr. Douglas Tucker Glucose [Mass/Vol] 90 mg/dL Normal 74-106 [facility] Comment on above: Performed By: #### C MP ####[facility] [address] [place] [address]Dr. Douglas Tucker Potassium [Moles/Vol] 4.0 mmol/L Normal 3.5-5.1 [facility] Comment on above: Performed By: #### C MP ####[facility] [address] [place] [address]Dr. Douglas Tucker Protein [Mass/Vol] 7.3 g/dL Normal 6.4-8.2 [facility] Comment on above: Performed By: #### C MP ####[facility] [address] [place] [address]Dr. Douglas Tucker Sodium [Moles/Vol] 140 mmol/L Normal 136-145 [facility] Comment on above: Performed By: #### C MP ####[facility] [address] [place] [address]Dr. Douglas Tucker Urea nitrogen [Mass/Vol] 10.0 mg/dL Normal 7.0-18.0 [facility] Comment on above: Performed By: #### C MP ####[facility] [address] [place] [address]Dr. Douglas Tucker Urea nitrogen/Creatinine [Mass ratio] 11.1 mg/mg Normal [facility] Comment on above: Performed By: #### C MP ####[facility] [address] [place] [address]Dr. Douglas Tucker URINE MICROSCOPIC ONLYon BACTERIA MODERATE Abnormal NONE SEEN [facility] Comment on above: Performed By: #### U MICRO, ERUR #### [facility] [address] [place] [address] [address] Douglas Tucker Bacteria identified Cx Nom (U) INDICATED Normal [facility] Comment on above: Performed By: #### U MICRO, ERUR #### [facility] [address] [place] [address] [address] Douglas Tucker CAST NONE SEEN Normal NONE SEEN [facility] Comment on above: Performed By: #### U MICRO, ERUR #### [facility] [address] [place] [address] Dr. Douglas Tucker Crystals LM Nom (Urine sed) NONE SEEN Normal NONE SEEN [facility] Comment on above: Performed By: #### U MICRO, ERUR #### [facility] [address] [place] [address] Dr. Douglas Tucker Epithelial cells LM Ql (Urine sed) FEW Abnormal NONE SEEN /RARE [facility] Comment on above: Performed By: #### U MICRO, ERUR #### [facility] [address] [place] [address] Dr. Douglas Tucker MUCOUS NONE SEEN Normal NONE SEEN [facility] Comment on above: Performed By: #### U MICRO, ERUR #### [facility] [address] [place] [address] Dr. Douglas Tucker RBC 0-2 Normal 0-2 [facility] Comment on above: Performed By: #### U MICRO, ERUR #### [facility] [address] [place] [address] Dr. Douglas Tucker WBC 2-5 Abnormal NONE SEEN [facility] Comment on above: Performed By: #### U MICRO, ERUR #### [facility] [address] [place] [address] Dr. Douglas Tucker US KIDNEYSon 01-28-2022 US KIDNEYS [facility]: Pain ; right flank pain for 3 days COMPARISON: No relevant comparison available. TECHNIQUE: Ultrasound examination was performed of the kidneys and urinary bladder. FINDINGS: RIGHT KIDNEY: No evidence of pelvocaliectasis, mass, or calculi. Normal renal cortical parenchymal echogenicity. Color Doppler demonstrates blood flow within the kidney. Kidney: 10.9 x 5.9 x 6.1 cm LEFT KIDNEY: No evidence of pelvocaliectasis, mass, or calculi. Normal renal cortical parenchymal echogenicity. Color Doppler demonstrates blood flow within the kidney. Kidney: 12.0 x 4.5 x 4.6 cm BLADDER: No visible wall thickening, mass, or calculi. IMPRESSION: 1. Normal ultrasound appearance of the kidneys and urinary bladder. Electronically authenticated by: RICHELLE CARTER Date: 2022-01-28 13:45 Normal [facility] CBC AUTO DIFFon 10-29-2021 BASO # 0.1 103/ul Normal 0.0-0.1 [facility] Comment on above: Performed By: #### C BC ####[facility] [address] [place], [place] [address]Dr. Douglas Tucker Basophils/100 WBC (Bld) 0.8 % Normal 0.2-2.0 [facility] Comment on above: Performed By: #### C BC ####[facility] Nhzclfircu438512 [address] [place], [place] [address]Dr. Douglas Tucker EO # 0.2 103/ul Normal 0.0-0.7 [facility] Comment on above: Performed By: #### C BC ####[facility] Znhsqgztre[address] [place], [place] [address]Dr. Douglas Tucker Eosinophils/100 WBC (Bld) 3.0 % Normal 0.9-7.0 [facility] Comment on above: Performed By: #### C BC ####[facility] Oemwdjybex[address] [place], [place] [address]Dr. Douglas Tucker Erythrocyte distribution width (RBC) [Ratio] 12.2 % Normal 11.0-15.0 [facility] Comment on above: Performed By: #### C BC ####[facility] Zrrbtysklx[address] [place], [place] [address]Dr. Douglas Tucker Hematocrit (Bld) [Volume fraction] 39.9 % Normal 36.0-48.0 [facility] Comment on above: Performed By: #### C BC ####[facility] Xdzikipvvc3874[address] [place], [place] [address]Dr. Douglas Tucker Hemoglobin (Bld) [Mass/Vol] 13.5 g/dL Normal 12.0-16.0 [facility] Comment on above: Performed By: #### C BC ####[facility] Sxsbbyonan[address] [place], [place] [address]Dr. Douglas Tucker IG # 0.01 10e3/ul Normal 0.00-0.03 [facility] Comment on above: Performed By: #### C BC ####[facility] [address]kspkmg[address] [place] [address]Dr. Umuana Tucker IG % 0.2 % Normal 0.0-0.5 [facility] Comment on above: Performed By: #### C BC ####[facility] Uch[address]llfqwh[address] [place], [place] [address]Dr. Douglas Tucker LYMPH # 3.0 103/ul Normal 1.2-3.8 [facility] Comment on above: Performed By: #### C BC ####[facility] Thdvnapptd[address] [place], [place] [address]DrHernandez Umuana Tucker Lymphocytes/100 WBC (Bld) 44.6 % Normal 20.5-60.0 [facility] Comment on above: Performed By: #### C BC ####[facility] Uaqteycfma[address] [place], [place] [address]DrHernandez Tucker MANUAL DIFF REQ NO Normal [facility] Comment on above: Performed By: #### C BC ####[facility] Ehygkwedjq[address] [place], [place] [address]Dr. Douglas Garrett MCH (RBC) [Entitic mass] 32.1 pg Normal 26.7-34.0 [facility] Comment on above: Performed By: #### C BC ####[facility] Yveowecxbh[address] [place], [place] [address]DrHernandez Douglas Garrett MCHC (RBC) [Mass/Vol] 33.8 g/dL Normal 29.9-35.2 [facility] Comment on above: Performed By: #### C BC ####[facility] Sp[address]wdpdb[address] [place], [place] [address]DrHernandez Tucker MCV (RBC) [Entitic vol] 95.0 fL Normal 81.0-99.0 [facility] Comment on above: Performed By: #### C BC ####[facility] Plyvilgnan[address] [place], [place] [address]DrHernandez Tucker MONO # 0.5 103/ul Normal 0.3-0.8 [facility] Comment on above: Performed By: #### C BC ####[facility] [address]fa[address]cnw[address] [place], [place] [address]Dr. Douglas Tucker Monocytes/100 WBC (Bld) 7.8 % Normal 1.7-12.0 [facility] Comment on above: Performed By: #### C BC ####[facility] [address]uvzpxmv360[address] [place] [address]Dr. Douglas Tucker NEUT # 2.9 103/ul Normal 1.4-6.5 [facility] Comment on above: Performed By: #### C BC ####[facility] [address]lotlbxynk[address] [place] [address]Dr. Douglas Tucker Neutrophils/100 WBC (Bld) 43.6 % Normal 43.0-75.0 [facility] Comment on above: Performed By: #### C BC ####[facility] [address]tkrl[address] [place] [address]Dr. Douglas Tucker Platelet mean volume (Bld) [Entitic vol] 11.1 fL Normal 9.5-13.5 [facility] Comment on above: Performed By: #### C BC ####[facility] [address]eygn[address] [place] [address]Dr. Douglas Tucker PLT 188 103/ul Normal 150-450 [facility] Comment on above: Performed By: #### C BC ####[facility] [address]wh[address] [place], [place] [address]Dr. Douglas Tucker RBC 4.20 106/ul Normal 4.20-5.40 [facility] Comment on above: Performed By: #### C BC ####[facility] Ctzgdtiisy[address] [place], [place] [address]Dr. Douglas Tucker WBC 6.6 103/ul Normal 4.0-11.0 [facility] Comment on above: Performed By: #### C BC ####[facility] [address] [place] [address]Dr. Douglas Tucker MAGNESIUMon 10-29-2021 Magnesium [Mass/Vol] 2.1 mg/dL Normal 1.8-2.4 [facility] Comment on above: Performed By: #### M G, CMP ####[facility] Pafctygrih[address] [place], [place] [address]Dr. Douglas Tucker PROF 14(COMP METB)on 022 Albumin [Mass/Vol] 3.6 g/dL Normal 3.4-5.0 [facility] Comment on above: Performed By: #### Alyse Alejandro, CMP ####[facility] [address]irkb[address] [place] [id number]. Douglas Tucker Albumin/Globulin [Mass ratio] 1.2 {ratio} Normal [facility] Comment on above: Performed By: #### Alyse Alejandro, CMP ####[facility] [address] [place] [address]Dr. Douglas Tucker ALP [Catalytic activity/Vol] 61 U/L Normal 46-116 [facility] Comment on above: Performed By: #### Alyse Alejandro, CMP ####[facility] [address]uzg[address] [place] [address]Dr. Douglas Tucker ALT [Catalytic activity/Vol] 25 U/L Normal 14-59 [facility] Comment on above: Performed By: #### Alyse Alejandro, CMP ####[facility] [address]um[address] [place] [address]Dr. Douglas Tucker Anion gap [Moles/Vol] 12.4 mmol/L Normal [facility] Comment on above: Performed By: #### Alyse Alejandro, CMP ####[facility] Qfzflcnpmu[address] [place] [address]Dr. Douglas Tucker AST [Catalytic activity/Vol] 23 U/L Normal 15-37 [facility] Comment on above: Performed By: #### Alyse Alejandro, CMP ####[facility] W[address]rtqhdp[address] [place] [address]Dr. Douglas Tucker Bilirubin [Mass/Vol] 0.3 mg/dL Normal 0.2-1.0 [facility] Comment on above: Performed By: #### Alyse Alejandro, CMP ####[facility] [address]xpfjpoug[address] [place] [address]Dr. Douglas Tucker Calcium [Mass/Vol] 8.5 mg/dL Normal 8.5-10.1 [facility] Comment on above: Performed By: #### Alyse Alejandro, CMP ####[facility] [address] [place] [id number]. Douglas Tucker Chloride [Moles/Vol] 106 mmol/L Normal 98-107 [facility] Comment on above: Performed By: #### M G, CMP ####[facility] [address]vdbwwed44[address] [place] [id number]. Douglas Tucker CO2 [Moles/Vol] 22.8 mmol/L Normal 21.0-32.0 [facility] Comment on above: Performed By: #### Alyse Alejandro, CMP ####[facility] Amdjafcapc22[address] [place] [id number]. Douglas Tucker Creatinine [Mass/Vol] 0.76 mg/dL Normal 0.55-1.02 [facility] Comment on above: Performed By: #### Alyse Alejandro, CMP ####[facility] [address]xrcfh[address] [place], [place] [address]Dr. Douglas Tucker EGFR-AF SAO TOMEAN >60 Normal >=60 [facility] Comment on above: Performed By: #### Alyse Alejandro, CMP ####[facility] [address]xhxje[address] [place], [place] [address]Dr. Douglas Tucker EGFR-NON AF SAO TOMEAN >60 Normal >=60 [facility] Comment on above: Performed By: #### Alyse Alejandro, CMP ####[facility] He[address]wgtqgho[address] [place], [place] [address]Dr. Douglas Tucker Globulin (S) [Mass/Vol] 3.0 g/dL Normal [facility] Comment on above: Performed By: #### Alyse Alejandro, CMP ####[facility] Eug[address]hg[address] [place], [place] [address]Dr. Douglas Tucker Glucose [Mass/Vol] 110 mg/dL Critically high 74-106 [facility] Comment on above: Performed By: #### Alyse G, CMP ####[facility] V[address]wswbtt[address] [place] [address]Dr. Duoglas Tucker Potassium [Moles/Vol] 4.2 mmol/L Normal 3.5-5.1 [facility] Comment on above: Performed By: #### M G, CMP ####[facility] [address] [place] [id number]. Douglas Tucker Protein [Mass/Vol] 6.6 g/dL Normal 6.4-8.2 [facility] Comment on above: Performed By: #### M G, CMP ####[facility] [address]fek[address] [place] [phone]. Douglas Tucker Sodium [Moles/Vol] 137 mmol/L Normal 136-145 [facility] Comment on above: Performed By: #### M G, CMP ####[facility] [address]zp[address] [place] [id number]. Douglas Tucker Urea nitrogen [Mass/Vol] 12.0 mg/dL Normal 7.0-18.0 [facility] Comment on above: Performed By: #### Alyse G, CMP ####[facility] [address] [place] [id number]. Douglas Tucker Urea nitrogen/Creatinine [Mass ratio] 15.8 mg/mg Normal [facility] Comment on above: Performed By: #### Alyse G, CMP ####[facility] [address]ff[address]xs[address] [place] [id number]. Douglas Tucker [facility] 03-07-2021 [facility] HNO ID: [id number] Author: RT Pati(Jd) Service: Radiology Author Type: Technologist Type: Allied Health Filed: 03/07/2021 5:33 PM Note Text: Radiology Service Progress Note PATIENT NAME: Sully Enriquez DATE OF SERVICE: March 07, 2021 TIME: 5:32 PM PATIENT IDENTITY VERIFICATION COMPLETED USING TWO (2) IDENTIFIERS: Name and Date of confirmed by patient verbally and Name and Date of confirmed by identification band. FALL SCREENING: Has the patient had 2 falls in the last year or 1 fall with injury or currently using an Ambulatory Assistive Device (Walker, Cane, Wheelchair, Crutches, etc.)? Inpatient: Screened on floor PATIENT GENDER DATA: Female. status: : No status: NO. PATIENT RELEVANT IMPLANT DATA REVIEWED: Yes RADIOLOGY DEPARTMENT: MR; Exam(s) Completed: Head: Routine Brain Sagittal Sinus MRV PERIPHERAL IV DATA: Not applicable SIGNED BY: RT Pati(R) March 07, 2021 5:32 PM [facility] CNDSon 03-07-2021 [facility] HNO ID: [id number] Author: Rosalie Haile MD Service: ? Author Type: Physician Type: Discharge Summary Filed: 03/11/2021 7:31 PM Note Text: Internal Medicine discharge summery PATIENT NAME: Sully Enriquez Discharge DATE: 03/07/2021 Admit date 03/06/2021 ? ? SUBJECTIVE: Patient with a history of diabetes and obesity. Admitted to the hospital with seizure. ? ASSESSMENT AND PLAN: 1. Seizure. Admitted to the hospital. Seizure precaution. Check electrolytes. Neuro consultation. Consider EEG. MRI of the brain. 2. Diabetes type 2. 3. Obesity. Need to lose weight. ? No new complain no cp no sob no abd pain Clear by consultants to D/C meds reviewed /condition is stable emphasize on F/u 1 week with PCP as well as consultants Phone number and cards provided by the consultants and RN Question answered Last EKG reviewed Last CXR reviewed Epic[facility] consultants notes reviewed Labs reviewed No results found for: HBA1C 03/07/21 0416 03/07/21 0722 03/07/21 1138 03/07/21 1613 BP: 104/61 94/63 111/67 113/79 Pulse: (!) 47 72 62 65 Resp: 17 16 18 16 Temp: 36.6 ?C (97.9 ?F) 36.6 ?C (97.9 ?F) 36.5 ?C (97.7 ?F) 36.7 ?C (98.1 ?F) TempSrc: Axillary Oral Oral Oral SpO2: 97% 96% 100% 94% Weight: Height: GENERAL:no distress, cooperative LUNGS: Lungs clear to auscultation. No wheezing,ronchi or rales./CARDIAC: S1 , S2; ABDOMEN: Abdomen soft, non-tender NEURO: same /no new rash ENT unremarkable Plan D/W consultants/PT/available family Medication List CONTINUE taking these medications ALPRAZolam 1 mg tablet Commonly known as: XANAX STOP taking these medications tiZANidine 2 mg tablet Commonly known as: ZANAFLEX Rosalie Haile MD [facility] HISTORY PHYSICALon 1 HISTORY PHYSICAL HNO ID: [id number] Author: Rosalie Haile MD Service: ? Author Type: Physician Type: HANDP Filed: 03/11/2021 7:31 PM Note Text: [facility]QUE[facility] : 1990 AGE: 31 SEX: F CSN: [id number] [facility] [place] [facility] [place]: [facility] ATTENDING PHYSICIAN: Rosalie Haile M.D. ? ? DATE OF SERVICE: 03/06/2021 ? ? SUBJECTIVE: Patient with a history of diabetes and obesity. Admitted to the hospital with seizure. ?This is a 31 year old female with a hx of seizures, diabetes, anxiety, and conversion disorder, who reportedly had a seizure at the airport [facility]. She and her boyfriend had just arrived from a flight when she suddenly did not feel well. He accompanied her to a bathroom where she had what appeared to be a grand mal seizure. She says that she takes Xanax to control her seizure condition and had taken it before the flight. She had a headache after the seizure. She recently completed treatment of a UTI. ASSESSMENT AND PLAN: 1. Seizure. Admitted to the hospital. Seizure precaution. Check electrolytes. Neuro consultation. Consider EEG. MRI of the brain. 2. Diabetes type 2. Sliding scale insulin. 3. Obesity. Need to lose weight. Benefit from outpatient sleep study. ? Case has been discussed with ED physician, consultants. We will follow up. No past medical history on file. Social History Tobacco Use - Smoking status: Not on file - Smokeless tobacco: Not on file Substance Use Topics - Alcohol use: Not on file - Drug use: Not on file No family history on file. No past surgical history on file. No results found for: HBA1C R.O.S negative other than HPI AND PMH all other SYS reviewed and negative. Current Facility-Administered Medications Medication Dose Route Frequency Provider Last Rate Last Admin - NaCl 0.9% iv flush bag 20 mL INTRAVENOUS PRN Adonis Mahoney MD - sodium chloride 0.9 % (flush) 3-5 mL (BD POSIFLUSH) 3-5 mL INTRAVENOUS q 12 H Adonis Mahoney MD 5 mL at 11/16/21 2131 - dextrose 40 % 15 g 15 g ORAL PRN Adonis Mahoney MD Or - glucagon 1 mg injection 1 mg INTRAMUSCULAR PRN Adonis Mahoney MD Or - dextrose 50% in water 25 mL syringe 12.5 g INTRAVENOUS PRN Adonis Mahoney MD - insulin lispro injection (rapid acting) (HumaLOG) SUBCUTANEOUS w MEALS Adonis Mahoney MD - insulin lispro injection (rapid acting) (HumaLOG) SUBCUTANEOUS AT BEDTIME Adonis Mahoney MD - acetaminophen 650 mg tab(s) (TYLENOL) 650 mg ORAL q 6 H PRN Mayela Eckert PA-C 650 mg at 03/06/21 1940 - ALPRAZolam 1 mg tab(s) (XANAX) 1 mg ORAL BID PRN Mayela Eckert PA-C - keTORolac 15 mg injection (TORADOL) 15 mg INTRAVENOUS q 6 H Tim Sanches MD 15 mg at 03/06/21 1508 - diphenhydrAMINE 25 mg injection (BENADRYL) 25 mg INTRAVENOUS q 6 H Tim Sanches MD 25 mg at 03/06/21 1508 - prochlorperazine 5 mg injection (COMPAZINE) 5 mg INTRAVENOUS q 6 H Tim Sanches MD 5 mg at 03/06/21 1508 No intake or output data in the 24 hours ending 03/06/21 2240 DATA: CBC: Recent Labs 03/06/21 0234 WBC 6.79 RBC 4.15 HB 13.2 HCT 40.1 PLT 183 MCV 96.6 MCH 31.8 MPV 10.7 CMP: Recent Labs 03/06/21 0234 NA 141 K 3.9 CHLOR 106 CO2 25 BUN 12 CREAT 0.99 GLUC 103* TPROT 7.1 CA 9.3 MG 2.1 TBILI 0.2 ALKPHOS 67 ALT 15 AST 15 ANION 10 Glucose (mg/dL) Date Value 03/06/2021 103 (H) BUN (mg/dL) Date Value 03/06/2021 12 Creatinine (mg/dL) Date Value 03/06/2021 0.99 Sodium (mmol/L) Date Value 03/06/2021 141 Potassium (mmol/L) Date Value 03/06/2021 3.9 Chloride (mmol/L) Date Value 03/06/2021 106 CO2 (mmol/L) Date Value 03/06/2021 25 Protein, Total (g/dL) Date Value 03/06/2021 7.1 Albumin (g/dL) Date Value 03/06/2021 4.6 Calcium (mg/dL) Date Value 03/06/2021 9.3 Alkaline Phosphatase (U/L) Date Value 03/06/2021 67 Bilirubin, Total (mg/dL) Date Value 03/06/2021 0.2 AST (U/L) Date Value 03/06/2021 15 ALT (U/L) Date Value 03/06/2021 15 Hemoglobin (g/dL) Date Value 03/06/2021 13.2 Hematocrit (%) Date Value 03/06/2021 40.1 WBC (k/uL) Date Value 03/06/2021 6.79 [facility] consultants notes reviewed Most recent images Reviewed Last EKG/Rhythm reviewed 03/06/21 1930 03/06/21 2100 03/06/21221103/06/212226 BP: 123/74 118/64 115/72 Pulse: 68 62 63 Resp: 20 14 18 Temp: 36.8 ?C (98.2 ?F) TempSrc: Oral SpO2: 97% 97% 97% Weight: 102.1 kg (225 lb 1.4 oz) Height: GENERAL: o x 3 in distress. SKIN: No rashes . ENT mucosa, Normal/nose normal NECK: no jugulovenous distention NO lymphadenopathy LUNGS:No wheezing,no ronchi no rales. CARDIAC: S1 and S2 ABDOMEN: Abdomen soft, non-tender. EXTREMITIES: Extremities normal. NEURO: non focal PULSES: + pedal / radial No edema No goiter No carotid bruits. Rosalie Haile MD [facility] MRI BRAIN WO IVCONon 021 MRI BRAIN WO IVCON * * *Final Report* * * DATE OF EXAM: Mar 07 2021 5:42PM FVM 0294 - MRI BRAIN WO IVCON / PROCEDURE REASON: Dural venous sinus thrombosis suspected * * * * Physician Interpretation * * * * EXAMINATION: MRI BRAIN WO IVCON, MRV BRAIN WO IVCON CLINICAL HISTORY: Clinical concern for dural venous sinus thrombosis. Headache. TECHNIQUE: Routine noncontrast MRI protocol including diffusion images. Bxfe-tx-yhqjqi MRV brain with post-processing performed at the modality and 2D multiplanar and 3D maximum intensity projections were created, reviewed and archived. MQ: MRBWO_2 COMPARISON: CT brain obtained 03/06/2021 RESULT: Acute Change: There is no evidence of restricted diffusion to suggest an acute infarct. Hemorrhage: No evidence of prior parenchymal hemorrhage on the SWI. Mass Lesion/ Mass Effect: No evidence of an intracranial mass or extra-axial fluid collection. No significant mass effect. Chronic Change: The white matter is within normal limits of signal intensity for age. Parenchyma: No significant volume loss for age. The brain parenchyma is otherwise within normal limits of signal intensity and morphology. Ventricles: Normal caliber and morphology. Skull Base: Hypothalamic and pituitary region are grossly normal. Craniocervical junction is normal. No significant marrow replacement process. Vasculature: Major intracranial arterial structures, and dural venous sinuses show typical flow void, suggesting patency by spin echo criteria. Other: The visualized paranasal sinuses and mastoid air cells are clear. The orbits and extracranial soft tissues are unremarkable. MRV BRAIN RESULT: Superior sagittal sinus, transverse sinuses, sigmoid sinuses, jugular bulbs, straight sinus, internal cerebral veins, vein of ada are patent and without significant focal narrowing. Somewhat suboptimal evaluation of the superior sagittal sinus posteriorly, normal flow void is seen on T2 sequence suggesting patency by spin echo criteria. IMPRESSION: No acute intracranial findings. Unremarkable MRI brain without intravenous contrast. Patent major dural venous sinuses. Shingle Cutter: MAVERICK Transcribe Date/Time: Mar 07 2021 5:46P Dictated by : HOLLAND MUELLER MD This examination was interpreted and the report reviewed and electronically signed by: HOLLAND MUELLER MD on Mar 07 2021 5:51PM EST [id number] [facility] MRV BRAIN WO IVCONon 021 MRV BRAIN WO IVCON * * *Final Report* * * DATE OF EXAM: Mar 07 2021 5:42PM FVAlyse 0335 - MRV BRAIN WO IVCON / PROCEDURE REASON: Dural venous sinus thrombosis suspected * * * * Physician Interpretation * * * * EXAMINATION: MRI BRAIN WO IVCON, MRV BRAIN WO IVCON CLINICAL HISTORY: Clinical concern for dural venous sinus thrombosis. Headache. TECHNIQUE: Routine noncontrast MRI protocol including diffusion images. Zfmz-xj-obiuaq MRV brain with post-processing performed at the modality and 2D multiplanar and 3D maximum intensity projections were created, reviewed and archived. MQ: MRBWO_2 COMPARISON: CT brain obtained 03/06/2021 RESULT: Acute Change: There is no evidence of restricted diffusion to suggest an acute infarct. Hemorrhage: No evidence of prior parenchymal hemorrhage on the SWI. Mass Lesion/ Mass Effect: No evidence of an intracranial mass or extra-axial fluid collection. No significant mass effect. Chronic Change: The white matter is within normal limits of signal intensity for age. Parenchyma: No significant volume loss for age. The brain parenchyma is otherwise within normal limits of signal intensity and morphology. Ventricles: Normal caliber and morphology. Skull Base: Hypothalamic and pituitary region are grossly normal. Craniocervical junction is normal. No significant marrow replacement process. Vasculature: Major intracranial arterial structures, and dural venous sinuses show typical flow void, suggesting patency by spin echo criteria. Other: The visualized paranasal sinuses and mastoid air cells are clear. The orbits and extracranial soft tissues are unremarkable. MRV BRAIN RESULT: Superior sagittal sinus, transverse sinuses, sigmoid sinuses, jugular bulbs, straight sinus, internal cerebral veins, vein of ada are patent and without significant focal narrowing. Somewhat suboptimal evaluation of the superior sagittal sinus posteriorly, normal flow void is seen on T2 sequence suggesting patency by spin echo criteria. IMPRESSION: No acute intracranial findings. Unremarkable MRI brain without intravenous contrast. Patent major dural venous sinuses. Shingle Cutter: MAVERICK Transcribe Date/Time: Mar 07 2021 5:46P Dictated by : HOLLAND MUELLER MD This examination was interpreted and the report reviewed and electronically signed by: HOLLADN MUELLER MD on Mar 07 2021 5:51PM EST [id number] Normal [facility] NURSING PROGon 03-07-2021 NURSING PROG HNO ID: [id number] Author: Toya Pompa RN Service: ? Author Type: Registered Nurse Type: Nursing Progress Note Filed: 03/07/2021 11:35 PM Note Text: Nursing Progress Note Patient Name: Sully Enriquez Patient Location: [place] [address] Pt discharged, transferred via wheelchair to exit where was picking her up. IV/tele removed. All belongings accounted for. This note was completed by: Toya Pompa [facility] NURSING PROG HNO ID: [id number] Author: Cordelia Faye RN Service: Nursing Author Type: Registered Nurse Type: Nursing Progress Note Filed: 03/07/2021 5:15 PM Note Text: Nursing Progress Note Patient Name: Sully Enriquez Patient Location: [place] [address] Daily Note: 0830 Pt AANDOx3.Follows commands. No seizure activity. Awaiting MRI of the brain. C/o of 10/28 pressure generalized ESPINOZA. Medicated w/ ESPINOZA cocktail. Denies CP, SOB, dizziness, blurred or double vision. LS clear. RA. SR on telemetry. Abdomen soft and non tender. Pt reports having several sot BMs during the day today. I soft small brown BM witnessed. Denies abdominal pain. Denies N/V. Non pitting edema BLE. Call light within reach. [facility] 1630 pt asks to be d/c today and have MRI as OP per neurology recs. Dr Haile paged. 1705 pt to MRI. Medicated with 25 mg of Atarax prior to MRI. [address] Haile to wait for MRI results. If neurology signs off after the MRI is resulted will reach dr Haile for d/c orders. [facility] This note was completed by: Cordelia Faye [facility] NURSING PROG HNO ID: [id number] Author: Breanne Reis RN Service: ? Author Type: Registered Nurse Type: Nursing Progress Note Filed: 03/07/2021 6:30 AM Note Text: Nursing Progress Note Patient Name: Sully Enriquez Patient Location: Daily Note : Assumed care of pt @ 2240. Pt is in bed and is AANDox3 and is maintianed on sz precautions. Pt is in bed and is oiriented to room and unit. Pt c/ o headache and has headache cocktail orders. Pt has bed alarm on and call light within reach and will continue to monitor pt. @0021 Pt has EEG being placed. Pt was given scheduled headache cocktail for genralized headache of 10/28. Pt also requested PRN xanax. This note was completed by: Smiley Raymundo [facility] NURSING PROG HNO ID: [id number] Author: Yoselin Cui RN Service: Nursing Author Type: Registered Nurse Type: Nursing Progress Note Filed: 03/06/2021 10:38 PM Note Text: Nursing Progress Note Patient Name: Sully Enriquez Patient Location: Transfer Note: Patient transferred into room/unit PKT-12 in stable condition. Actions taken: Alert and oriented x 3. Patient was an ED hold. Admission database completed. Call light in reach. [facility] will do physical and skin assessments and complete NPR and skin flow sheets. This note was completed by: Yoselin Cui [employer] ALLIED HEALTHon 03-06-2021 ALLIED HEALTH HNO ID: [id number] Author: RT Sanam(Jd) Service: ? Author Type: Technologist Type: Allied Health Filed: 03/06/2021 3:02 AM Note Text: Radiology Service Progress Note PATIENT NAME: Sully Enriquez DATE OF SERVICE: March 06, 2021 TIME: 2:45 AM PATIENT IDENTITY VERIFICATION COMPLETED USING TWO (2) IDENTIFIERS: Name and Date of confirmed by patient verbally and Name and Date of confirmed by identification band. FALL SCREENING: Has the patient had 2 falls in the last year or 1 fall with injury or currently using an Ambulatory Assistive Device (Walker, Cane, Wheelchair, Crutches, etc.)? Emergency Room Patient: Screened in ED PATIENT GENDER DATA: Female. status: : No status: NO. PATIENT RELEVANT IMPLANT DATA REVIEWED: Not Applicable RADIOLOGY DEPARTMENT: CT; Exam(s) Completed: Brain PERIPHERAL IV DATA: Not applicable SIGNED BY: RT Sanam(R) March 06, 2021 2:45 AM Normal [facility] CBC and Differentialon 03-06 Abs Baso 0.04 k/uL Normal <0.11 [facility] Comment on above: Performed By: #### C K, ALCO, CBCDIF, CMP, MG1 ####[place] [phone] Abs [place] 0.55 k/uL Normal <0.87 [facility] Comment on above: Performed By: #### C K, ALCO, CBCDIF, CMP, MG1 ####[place] [phone] Abs Neut 3.17 k/uL Normal 1.45-7.50 [facility] Comment on above: Performed By: #### C K, ALCO, CBCDIF, CMP, MG1 ####[place] [phone] Absolute nRBC <0.01 Normal <0.01 [facility] Comment on above: Performed By: #### C K, ALCO, CBCDIF, CMP, MG1 ####[place] [phone] Basophils/100 WBC (Bld) 0.6 % Normal [facility] Comment on above: Performed By: #### C K, ALCO, CBCDIF, CMP, MG1 ####[place] [id number] DTYPE Auto Diff Normal [facility] Comment on above: Performed By: #### C K, ALCO, CBCDIF, CMP, MG1 ####[place] [address] Eosinophils (Bld) [#/Vol] 0.17 10*3/uL Normal <0.46 [facility] Comment on above: Performed By: #### C K, ALCO, CBCDIF, CMP, MG1 ####[place] [address] Eosinophils/100 WBC (Bld) 2.5 % Normal [facility] Comment on above: Performed By: #### C K, ALCO, CBCDIF, CMP, MG1 ####[place] [address] Erythrocyte distribution width (RBC) [Ratio] 12.0 % Normal 11.5-15.0 [facility] Comment on above: Performed By: #### C K, ALCO, CBCDIF, CMP, MG1 ####[place] [address] Hematocrit (Bld) [Volume fraction] 40.1 % Normal 36.0-46.0 [facility] Comment on above: Performed By: #### C K, ALCO, CBCDIF, CMP, MG1 ####[place] [address] Hemoglobin (Bld) [Mass/Vol] 13.2 g/dL Normal 11.5-15.5 [facility] Comment on above: Performed By: #### C K, ALCO, CBCDIF, CMP, MG1 ####[place] [address] Lymphocytes (Bld) [#/Vol] 2.85 10*3/uL Normal 1.00-4.00 [facility] Comment on above: Performed By: #### C K, ALCO, CBCDIF, CMP, MG1 ####[place] [phone] Lymphocytes/100 WBC (Bld) 42.0 % Normal [facility] Comment on above: Performed By: #### C K, ALCO, CBCDIF, CMP, MG1 ####[place] [phone] MCH 31.8 pG Normal 26.0-34.0 [facility] Comment on above: Performed By: #### C K, ALCO, CBCDIF, CMP, MG1 ####[place] [phone] MCHC (RBC) [Mass/Vol] 32.9 g/dL Normal 30.5-36.0 [facility] Comment on above: Performed By: #### C K, ALCO, CBCDIF, CMP, MG1 ####[place] [phone] MCV (RBC) [Entitic vol] 96.6 fL Normal 80.0-100.0 [facility] Comment on above: Performed By: #### C K, ALCO, CBCDIF, CMP, MG1 ####[place] [phone] Monocytes/100 WBC (Bld) 8.1 % Normal [facility] Comment on above: Performed By: #### C K, ALCO, CBCDIF, CMP, MG1 ####[place] [phone] Neutrophils/100 WBC (Bld) 46.8 % Normal [facility] Comment on above: Performed By: #### C K, ALCO, CBCDIF, CMP, MG1 ####[place] [phone] NRBCs 0.0 /100 WBC Normal 0 [facility] Comment on above: Performed By: #### C K, ALCO, CBCDIF, CMP, MG1 ####[address] [phone] Platelet mean volume (Bld) [Entitic vol] 10.7 fL Normal 9.0-12.7 [facility] Comment on above: Performed By: #### C K, ALCO, CBCDIF, CMP, MG1 ####[address] [phone] Platelets (Bld) [#/Vol] 183 10*3/uL Normal 150-400 [facility] Comment on above: Performed By: #### C K, ALCO, CBCDIF, CMP, MG1 ####[place] [phone] RBC (Bld) [#/Vol] 4.15 10*6/uL Normal 3.90-5.20 [facility] Comment on above: Performed By: #### C K, ALCO, CBCDIF, CMP, MG1 ####[place] [phone] WBC (Bld) [#/Vol] 6.79 10*3/uL Normal 3.70-11.00 [facility] Comment on above: Performed By: #### C K, ALCO, CBCDIF, CMP, MG1 ####[address] [phone] CKon 03-06-2021 CK [Catalytic activity/Vol] 103 U/L Normal 30-220 [facility] Comment on above: Performed By: #### C K, ALCO, CBCDIF, CMP, MG1 ####[address] [phone] CONSULTon 03-06-2021 CONSULT HNO ID: [id number] Author: Saravanan Yancey MD Service: Neurology General Author Type: Resident Type: Consults Filed: 03/06/2021 5:10 PM Note Text: ----- Attestation signed by Tim Sanches MD at 03/06/2021 9:16 PM [facility] STAFF PHYSICIAN NOTE OF PERSONAL INVOLVEMENT IN CARE I have reviewed the consult note obtained and documented by the resident and I personally participated in the madrigal components. I have discussed the case and management of the patient's care. The following comments revise or confirm relevant madrigal components of their note. IMPRESSION: This is a 31 year old female who presents with recurrent seizure-like activities. Patient reports that she was out of town on a trip to attend a music festival. [place] at the airport, after returning from the recent trip, patient reportedly had several episodes of generalized body convulsion. Patient has no recollection of the recent spells, but endorses severe headache that is atypical for her. She tells us that her seizure are non-epileptic and thus she doesn't use any AED. At the time of my evaluation in the ED, patient appears to be in distress and severe headache. + photophobia and phonophobia. No clear lateralized focal neurology deficit on exam. PLAN: Headache management as above. MRI/MRV w/o contrast Will hold off AED given atypical features of the recent spells (Several episode of prolonged generalized body convulsion) with no evidence of muscle breakdown, tongue bite or urinary incontinence. Patient is clear of the recent spells being similar to prior episode of seizure-like activities that were determined non-epileptic in origin. Monitor for any recurrence. Supportive measure. Plan of care discussed with Patient SIGNATURE: Tim Sanches MD DATE of SERVICE: March 06, 2021 TIME of SERVICE: 9:09 PM ----- INITIAL CONSULT - GENERAL NEUROLOGY SERVICE DATE: 03/06/2021 SERVICE TIME: 11:58 AM Reason for Evaluation: seizures Subjective HPI: Sully Enriquez is a 31 year old R handed female who is consulted to neurology for chief concern seizures , as noted by patient. The patient is admitted for management of the same. This is occurring on a background of the following medical conditions: -- Diabetes --Anxiety -- Hx of conversion disorder Ms. Enriquez presented to [facility] on 03/06/2021 for chief complaint seizure at the airport on the night of 03/05/2021. Her boyfriend and her had just deplaned coming back from [employer] x 3 days and she had not felt well. After this he went with her to the bathroom where she was noted to have a generalized type event concerning for seizure (described as grand mal ). He lowered her to the ground. Duration was 13 minutes in which time there were apparently 10 seizures (involves body doubling over and generalized shaking, no vocalizations, unclear eye opening), and following the events she was at her neurological baseline except for headache. She reported chest pain thereafter. At baseline apparently she takes alprazolam 1mg TID PRN to control her reported seizure disorder. She has not missed any doses of this. She completed treatment for a UTI recently. No remaining symptoms of UTI. UA unremarkable. CBC Hb 13.2, Plt 183, WBC 6.79, CMP with Glucose: 103, BUN: 12, Cr: 0.99, Na: 141, K: 3.9, Cl: 106, CO2: 25, Total Protein: 7.1, Albumin: 4.6, Ca: 9.3, ALP: 67, AST: 15, ALT: 15, Bili: 0.2. CK was normal 103, EtOH < 11, Utox neg (no benzos), and Mg 2.1. TSH 3.170. CT brain was performed and was unremarkable for acute process. Documented neurological examination by primary team is: NEURO: Alert and oriented x 3, no focal deficits. Of note in her chart on care everywhere, I do not see any neurology notes. 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 Reports generalized weakness but no paresthesias/tremors/imba aria. No reported issues with smell/taste/hearing. At this time she reports a very significant headache. States that it is worse when sitting up. Worse with lights and states that she has bilateral blurred vision. Describes bilateral pain radiating around the head. Has never had a similar headache in the past (reports relatively minor headaches in the past treated w/ tylenol). No fever/chills. No intercurrent illnesses The patient has no history on file for tobacco use.. With respect to drug use, the patient has no history on file for drug use.. The patient has no history on file for alcohol use.. Other than meds listed, there are no herbals/supplements/OTCs used. The patient's family history is not on file.. Current Facility-Administered Medica (more content not included)... Normal [facility] CT BRAIN WO IVCONon 03-06-20 CT BRAIN WO IVCON * * *Final Report* * * DATE OF EXAM: Mar 06 2021 3:02AM [facility] 0504 - CT BRAIN WO IVCON / PROCEDURE REASON: Head trauma, headache * * * * Physician Interpretation * * * * EXAMINATION: CT BRAIN WO IVCON CLINICAL HISTORY: Head trauma, headache. Additional history of seizures. TECHNIQUE: Routine CT of the brain without IV contrast. CT Dose-Length Product (DLP): 723 mGy*cm CT Dose Reduction Employed: No dose reduction techniques were required; COMPARISON: None available. RESULT: Post-operative change: None. Acute change: No evidence of an acute territorial infarct. Hemorrhage: No evidence of acute intracranial hemorrhage. Mass Lesion / Mass Effect: There is no evidence of a brain mass. No significant mass effect or extra-axial fluid collection (other than if described elsewhere). Chronic change: A partially empty sella appearance is suggested. None apparent in this modality. Parenchyma: There is no significant generalized volume loss for age. The brain parenchyma is normal for age (other than if additional findings described above). Ventricles: Commensurate with sulcal size. No hydrocephalus. Visualized paranasal sinuses: Partially imaged. Nonspecific opacification of a left-sided anterior ethmoid air cell. Occasional minimal mucosal thickening elsewhere. Other: No depressed skull fracture is seen. Esthetician/Skin Therapist (topogram) images: Non-diagnostic. IMPRESSION: No CT evidence of an acute intracranial abnormality. Other: details above. Shingle Cutter: MAVERICK Transcribe Date/Time: Mar 06 2021 3:13A Dictated by : JENN MORENO MD This examination was interpreted and the report reviewed and electronically signed by: JENN MORENO MD on Mar 06 2021 3:15AM EST [id number] Normal [facility] Comp Metabolic Panelon 03-06 Albumin [Mass/Vol] 4.6 g/dL Normal 3.5-5.0 [facility] Comment on above: Performed By: #### C K, ALCO, CBCDIF, CMP, MG1 ####[place] [phone] ALP [Catalytic activity/Vol] 67 U/L Normal 34-123 [facility] Comment on above: Performed By: #### C K, ALCO, CBCDIF, CMP, MG1 ####[place] [phone] ALT [Catalytic activity/Vol] 15 U/L Normal 0-45 [facility] Comment on above: Performed By: #### C K, ALCO, CBCDIF, CMP, MG1 ####[place] [phone] Anion gap [Moles/Vol] 10 mmol/L Normal 9-18 [facility] Comment on above: Performed By: #### C K, ALCO, CBCDIF, CMP, MG1 ####[address] AST [Catalytic activity/Vol] 15 U/L Normal 7-40 [facility] Comment on above: Performed By: #### C K, ALCO, CBCDIF, CMP, MG1 ####[place] [phone] Bilirubin [Mass/Vol] 0.2 mg/dL Normal 0.2-1.3 [facility] Comment on above: Performed By: #### C K, ALCO, CBCDIF, CMP, MG1 ####[place] [phone] Calcium [Mass/Vol] 9.3 mg/dL Normal 8.5-10.5 [facility] Comment on above: Performed By: #### C K, ALCO, CBCDIF, CMP, MG1 ####[place] [phone] Chloride [Moles/Vol] 106 mmol/L Normal 98-110 [facility] Comment on above: Performed By: #### C K, ALCO, CBCDIF, CMP, MG1 ####[place] [address] CO2 [Moles/Vol] 25 mmol/L Normal 23-32 [facility] Comment on above: Performed By: #### C K, ALCO, CBCDIF, CMP, MG1 ####[place] [phone] Creatinine [Mass/Vol] 0.99 mg/dL Normal 0.70-1.40 [facility] Comment on above: Performed By: #### C K, ALCO, CBCDIF, CMP, MG1 ####[place] [phone] eGFR- Amer. >60 Normal >60 [facility] Comment on above: Performed By: #### C K, ALCO, CBCDIF, CMP, MG1 ####[place] [address] eGFR-All Other Races >60 Normal >60 [facility] Comment on above: Result Comment: eGFR (Estimated GFR) Units of measure: mL/min/1.73 meters squared eGFR is derived from the reexpressed MDRD Study equation using the following parameters: serum creatinine, age, gender and race. The creatinine assay has been calibrated to be traceable to IDMS. An eGFR <60 mL/min/1.73m2 for >3 months is consistent with chronic kidney disease. Refer to KDOQI guidelines for clinical interpretation. In patients with unstable renal function, e.g. those with acute kidney injury, the eGFR may not accurately reflect actual GFR. Performed By: #### C K, ALCO, CBCDIF, CMP, MG1 ####[place] [phone] Glucose [Mass/Vol] 103 mg/dL High 65-100 [facility] Comment on above: Performed By: #### C K, ALCO, CBCDIF, CMP, MG1 ####[place] [phone] Potassium [Moles/Vol] 3.9 mmol/L Normal 3.5-5.0 [facility] Comment on above: Performed By: #### C K, ALCO, CBCDIF, CMP, MG1 ####[place] [phone] Protein [Mass/Vol] 7.1 g/dL Normal 6.0-8.4 [facility] Comment on above: Performed By: #### C K, ALCO, CBCDIF, CMP, MG1 ####[place] [phone] Sodium [Moles/Vol] 141 mmol/L Normal 132-148 [facility] Comment on above: Performed By: #### C K, ALCO, CBCDIF, CMP, MG1 ####[place] [phone] Urea nitrogen [Mass/Vol] 12 mg/dL Normal 8-25 [facility] Comment on above: Performed By: #### C K, ALCO, CBCDIF, CMP, MG1 ####[place] [phone] ED NOTEon 03-06-2021 ED NOTE HNO ID: [id number] Author: Isabell Olivares RN Service: ? Author Type: Registered Nurse Type: ED Notes Filed: 03/06/2021 9:38 PM Note Text: Report to JUS Reis. [facility] ED NOTE HNO ID: [id number] Author: Isabell Olivares RN Service: ? Author Type: Registered Nurse Type: ED Notes Filed: 03/06/2021 7:16 PM Note Text: Pt up to bedside commode in room with steady gait, pt back to bed, siderails up x 2. [facility] ED NOTE HNO ID: [id number] Author: Isabell Olivares RN Service: ? Author Type: Registered Nurse Type: ED Notes Filed: 03/06/2021 6:32 PM Note Text: Meal tray arrives at the bedside. [facility] ED NOTE HNO ID: [id number] Author: Isabell Olivares RN Service: ? Author Type: Registered Nurse Type: ED Notes Filed: 03/06/2021 6:02 PM Note Text: Pt encouraged to call for dinner tray. Pt reports her headache has improved. [facility] ED NOTE HNO ID: [id number] Author: Isabell Olivares RN Service: ? Author Type: Registered Nurse Type: ED Notes Filed: 03/06/2021 5:18 PM Note Text: Pt states much improvement to her headache, resting in the room with her family, lights dimmed for comfort. [facility] ED NOTE HNO ID: [id number] Author: Isabell Olivares RN Service: ? Author Type: Registered Nurse Type: ED Notes Filed: 03/06/2021 2:48 PM Note Text: Pt reports no improvement in her headache, pt resting with lights off and warm blankets with family at bedside. No new orders at this time. Neurology paged. [facility] ED NOTE HNO ID: [id number] Author: Isabell Olivares RN Service: ? Author Type: Registered Nurse Type: ED Notes Filed: 03/06/2021 2:25 PM Note Text: MRI form faxed to MRI. Pt states she has claustrophobia with MRI, Neurology paged. [facility] ED NOTE HNO ID: [id number] Author: Isabell Olivares RN Service: ? Author Type: Registered Nurse Type: ED Notes Filed: 03/06/2021 2:04 PM Note Text: MRI Screening form given to the patient. [facility] ED NOTE HNO ID: [id number] Author: Isabell Olivares RN Service: ? Author Type: Registered Nurse Type: ED Notes Filed: 03/06/2021 1:56 PM Note Text: Pt assisted onto and off the bedpan. [facility] ED NOTE HNO ID: [id number] Author: Isabell Olivares RN Service: ? Author Type: Registered Nurse Type: ED Notes Filed: 03/06/2021 1:56 PM Note Text: Pt accucheck 100, meal tray at bedside. [facility] ED NOTE HNO ID: [id number] Author: Isabell Olivares RN Service: ? Author Type: Registered Nurse Type: ED Notes Filed: 03/06/2021 1:39 PM Note Text: Neurology at bedside with the patient. [facility] ED NOTE HNO ID: [id number] Author: Isabell Olivares RN Service: ? Author Type: Registered Nurse Type: ED Notes Filed: 03/06/2021 1:26 PM Note Text: Verbal order from Dr. Haile for 25mg PO benadryl [facility] ED NOTE HNO ID: [id number] Author: Isabell Olivares RN Service: ? Author Type: Registered Nurse Type: ED Notes Filed: 03/06/2021 11:20 AM Note Text: Pt resting in bed with seizure pads in place, pt family member sleeping in the bed with the patient, pt family member asked to not be in the bed with the patient for patient safety. [facility] ED NOTE HNO ID: [id number] Author: Jade Forte RN Service: ? Author Type: Registered Nurse Type: ED Notes Filed: 03/06/2021 11:13 AM Note Text: Patient report given to JUS Whyte [facility] ED NOTE HNO ID: [id number] Author: Isabell Olivares RN Service: ? Author Type: Registered Nurse Type: ED Notes Filed: 03/06/2021 11:02 AM Note Text: Assumed care of the patient at this time, received report from JUS Hansen. Plan of Care: - maintain patient comfort, safety and privacy - monitor for changes in condition - bed locked, low position, siderails up - call light within reach [facility] ED NOTE HNO ID: [id number] Author: Jade Forte RN Service: ? Author Type: Registered Nurse Type: ED Notes Filed: 03/06/2021 11:05 AM Note Text: Patient reports continuing to have headache. Spouse also reports had another few second seizure. House paged. [facility] ED NOTE HNO ID: [id number] Author: Jade Forte RN Service: ? Author Type: Registered Nurse Type: ED Notes Filed: 03/06/2021 10:11 AM Note Text: Called lab, breakfast tray ordered [facility] ED NOTE HNO ID: [id number] Author: Jade Forte RN Service: ? Author Type: Registered Nurse Type: ED Notes Filed: 03/06/2021 8:43 AM Note Text: Patient placed on bedpan. Patient and sheets soiled. Patient cleaned, linens changed [facility] ED NOTE HNO ID: [id number] Author: Jade Forte RN Service: ? Author Type: Registered Nurse Type: ED Notes Filed: 03/06/2021 8:31 AM Note Text: Answered patient call light. Patient requesting bedpan. Patient reports patient just had seizure . House paged and returned call. [facility] ED NOTE HNO ID: [id number] Author: Jade Forte RN Service: ? Author Type: Registered Nurse Type: ED Notes Filed: 03/06/2021 7:39 AM Note Text: Patient resting in bed. Declines breakfast at this time. Reports headache and nausea. House paged. [facility] ED NOTE HNO ID: [id number] Author: Jade Forte RN Service: ? Author Type: Registered Nurse Type: ED Notes Filed: 03/06/2021 7:07 AM Note Text: Patient report received from JUS Schuler [facility] ED PROV NOTEon 03-06-2021 ED PROV NOTE HNO ID: [id number] Author: Adeel Mauro MD Service: Hospital Medicine Author Type: Physician Type: ED Provider Notes Filed: 03/06/2021 10:01 PM Note Text: ED Provider Note Patient Name: Sully Enriquez SERVICE DATE: 03/06/21 History Patient presents with: Seizures: Pt has hx of seizure, [place] bathroom at airport unwitnessed unknown LOC or fall The patient is a 31-year-old female who presents the emergency department with seizures, headache, chest pain. Her past medical history is significant for diabetes, anxiety, epilepsy, conversion disorder. The only medication the patient takes for her seizures is Xanax. She is accompanied to the emergency department by her boyfriend. Per her boyfriend they had just gotten off a flight at the airport. Patient stated she did not feel well. Boyfriend accompanied her to the bathroom where patient had a witnessed seizure. He lowered her to the ground. He describes a grand mal seizure. He states she had 10 seizures in 13 minutes. This is unusual for the patient. Patient had taken her Xanax before the flight. Afterwards patient was reporting chest pain. Patient currently denies chest pain. She is reporting a generalized headache. Nothing makes it worse or better. She reports she had a recent urinary tract infection but was treated with antibiotics. She no longer has any symptoms. No past medical history on file. No past surgical history on file. No family history on file. Social History Tobacco Use - Smoking status: Not on file - Smokeless tobacco: Not on file Substance and Sexual Activity - Alcohol use: Not on file - Drug use: Not on file - Sexual activity: Not on file ALLERGIES Allergen Reactions - Ciprofloxacin Unknown - Dicyclomine Unknown - Ketorolac Unknown - Lorazepam Unknown - Nitrofurantoin Unknown - Penicillins Unknown - Reglan [Metoclopram* Unknown - Zithromax [Azithrom* Unknown Review of Systems Constitutional: Negative for chills, fatigue and fever. HENT: Negative for ear discharge, ear pain, sinus pressure, sinus pain and sore throat. Respiratory: Negative for cough, shortness of breath and wheezing. Cardiovascular: Positive for chest pain. Negative for palpitations and leg swelling. Gastrointestinal: Negative for abdominal pain, diarrhea, nausea and vomiting. Endocrine: Negative for polydipsia, polyphagia and polyuria. Genitourinary: Negative for dysuria, flank pain, hematuria and urgency. Musculoskeletal: Negative for back pain, myalgias, neck pain and neck stiffness. Skin: Negative for color change, rash and wound. Neurological: Positive for seizures and headaches. Negative for dizziness, tremors, syncope, weakness and numbness. Physical Exam Vitals [03/06/21 0158] BP Pulse Temp Temp src Resp SpO2 Weight Height 124/76 65 36.9 ?C (98.4 ?F) Oral 14 100 % 95.3 kg (210 lb) 1.651 m (5' 5 ) Physical Exam Vitals and nursing note reviewed. Constitutional: Appearance: Normal appearance. HENT: Head: Normocephalic and atraumatic. Nose: Nose normal. No congestion. Mouth/Throat: Mouth: Mucous membranes are moist. Pharynx: Oropharynx is clear. Eyes: General: Right eye: No discharge. Left eye: No discharge. Neck: Vascular: No JVD. Cardiovascular: Rate and Rhythm: Normal rate and regular rhythm. Pulses: Carotid pulses are 2+ on the right side and 2+ on the left side. Heart sounds: S1 normal and S2 normal. No murmur heard. No friction rub. No gallop. No S3 or S4 sounds. Pulmonary: Effort: Pulmonary effort is normal. No respiratory distress. Breath sounds: Normal breath sounds. No stridor. No decreased breath sounds, wheezing, rhonchi or rales. Abdominal: General: Bowel sounds are normal. There is no distension. Palpations: Abdomen is soft. There is no mass. Tenderness: There is no abdominal tenderness. There is no guarding. Musculoskeletal: Right lower leg: No edema. Left lower leg: No edema. Skin: General: Skin is warm and dry. Capillary Refill: Capillary refill takes less than 2 seconds. Neurological: General: No focal deficit present. Mental Status: She is alert and oriented to person, place, and time. Mental status is at baseline. GCS: GCS eye subscore is 4. GCS verbal subscore is 5. GCS motor subscore is 6. Cranial Nerves: Cranial nerves are intact. Sensory: Sensation is intact. Motor: Motor function is intact. Coordination: Coordination is intact. Psychiatric: Mood and Affect: Mood normal. Behavior: Behavior normal. Diagnostic Testing ED Labs Ordered and Reviewed COMP METABOLIC PANEL - Abnormal; Notable for the following components: Result Value Ref Range Glucose 103 (*) 65 - 100 mg/dL All other components within normal limits URINALYSIS, WITH MICROSCOPIC - Abnormal; Notable for the following components: Color Colorless (*) Yellow WBC, Urine Rare (*) Negative /HPF RBC, Urine Rare (*) Negative (more content not included)... Normal [facility] Ethanolon 03-06-2021 Ethanol [Mass/Vol] mg/dL Normal <11 [facility] Comment on above: Performed By: #### C K, ALCO, CBCDIF, CMP, MG1 ####[facility] [place], [place] [phone] Expedited [id number] 03-06-20 21 SARS-CoV-2 (COVID-19) RNA AZ+probe Ql (Unsp spec) UPPER RESPIRATORY TRACT SWAB Normal [facility] Comment on above: Performed By: #### E XCOVD #### [place] [phone] SARS-CoV-2 (COVID-19) RNA AZ+probe Ql (Unsp spec) Negative for COVID19 (SARS CoV2) by RT-PCR or equivalent method. Normal Negative for COVID19 (SARS CoV2) by RT-PCR or equivalent method. [facility] Comment on above: Result Comment: This test has been authorized by FDA under an Emergency Use Authorization (EUA). Performed By: #### E XCOVD #### [place] [phone] HCG Qual, Urineon 03-06-2021 Beta HCG ( test) Ql (U) Negative Normal Negative [facility] Comment on above: Performed By: #### U HCG ####[place] [phone] HISTORY PHYSICALon HISTORY PHYSICAL HNO ID: [id number] Author: Adonis Mahoney MD Service: General Internal Medicine Author Type: Physician Type: HANDP Filed: 03/06/2021 6:51 AM Note Text: HISTORY AND PHYSICAL EXAMINATION * SERVICE DATE: 03/06/2021 PRIMARY CARE PHYSICIAN: Roxie Strickland NP Subjective CHIEF COMPLAINT: Seizures HPI: This is a 31 year old female with a hx of seizures, diabetes, anxiety, and conversion disorder, who reportedly had a seizure at the airport [facility]. She and her boyfriend had just arrived from a flight when she suddenly did not feel well. He accompanied her to a bathroom where she had what appeared to be a grand mal seizure. She says that she takes Xanax to control her seizure condition and had taken it before the flight. She had a headache after the seizure. She recently completed treatment of a UTI. PMHx: Seizures, diabetes, anxiety and conversion disorder PSHx: None per pt No family history on file. Social History Tobacco Use - Smoking status: Not on file - Smokeless tobacco: Not on file Substance Use Topics - Alcohol use: Not on file - Drug use: Not on file MEDICATIONS: Prior to Admission Medications (Not in a hospital admission) ALLERGIES Allergen Reactions - Ciprofloxacin Unknown - Dicyclomine Unknown - Ketorolac Unknown - Lorazepam Unknown - Nitrofurantoin Unknown - Penicillins Unknown - Reglan [Metoclopram* Unknown - Zithromax [Azithrom* Unknown COMPLETE REVIEW OF SYSTEMS: All ROS reviewed by me and are negative unless otherwise noted in the HPI above Objective PHYSICAL EXAM: Patient Vitals for the past 24 hrs: BP Temp Temp src Pulse Resp SpO2 Height Weight 03/06/21 0500 110/74 ? ? 55 14 99 % ? ? 03/06/21 0430 115/86 ? ? 59 14 99 % ? ? 03/06/21 0400 119/79 ? ? 72 16 98 % ? ? 03/06/21 0330 114/80 ? ? 62 15 99 % ? ? 03/06/21 0230 125/83 ? ? 66 20 100 % ? ? 03/06/21 0200 124/76 ? ? 66 ? 100 % ? ? 03/06/21 0158 124/76 36.9 ?C (98.4 ?F) Oral 65 14 100 % 165.1 cm (5' 5 ) 95.3 kg (210 lb) Body mass index is 34.95 kg/m?. PAIN: None at present time. GENERAL: Alert, cooperative. SKIN: Intact. HEENT: PERRL, nasal mucosa moist, oropharynx negative. NECK: Supple, no carotid bruit. LUNGS: Clear to auscultation bilaterally. CARDIAC: RRR, normal S1 and S2. ABDOMEN: Soft, nontender, bowel sounds present. EXTREMITIES: No edema. Moves all extremities times 4. PULSES: Radial pulses 2+, DP pulses 2+. NEURO: Alert and oriented x 3, no focal deficits. DATA: Diagnostic tests reviewed for today's visit: Most recent labs Most recent imaging Most recent EKG Assessment/Plan Active Problems: 1. Seizure -- Seizure protocol -- Neurology consult -- Telemetry -- Monitor electrolytes 2. Diabetes -- Monitor blood glucose, SSI as indicated Plan of care discussed with: Provider, RN, Patient. SIGNATURE: Adonis Mahoney MD PATIENT NAME: Sully Enriquez DATE: March 06, 2021 TIME: 6:08 AM Normal [facility] Magnesiumon 03-06-2021 Magnesium [Mass/Vol] 2.1 mg/dL Normal 1.7-2.6 [facility] Comment on above: Performed By: #### C K, ALCO, CBCDIF, CMP, MG1 ####[place] [phone] TSHon 03-06-2021 TSH Qn 3.170 m[IU]/L Normal 0.270-4.200 [facility] Comment on above: Result Comment: If t he patient is , TSH reference range varies by gestational period: First Trimester (weeks 9-12): 0.180-2.990 mcIU/mL Second Trimester: 0.110-3.980 mcIU/mL Third Trimester: 0.480-4.710 mcIU/mL Dawson Mcleod et al. A Practical Approach for the Verifications and Determination of Site- and Trimester-Specific Reference Intervals for Thyroid Function tests in . Thyroid, 2019:29:3:412-420. Jimmie E, et al. 2017 Guidelines of the [place] Thy[employer] for the Diagnosis and Management of Thyroid Disease during and the . Thyroid, 2017:27:3:315-389. Performed By: #### T SH ####[place] [phone] Toxicology Screen,Uron 03-06 Amphetamines, Urine Negative Normal Negative [facility] Comment on above: Result Comment: Cuto ff threshold at 1000 ng/mL. Performed By: #### U TOX2, UAWMIC #### [place] [phone] Barbiturates, Urine Negative Normal Negative [facility] Comment on above: Result Comment: Cuto ff threshold at 200 ng/mL. Performed By: #### U TOX2, UAWMIC #### [place] [phone] Benzodiazepines, Ur Negative Normal Negative [facility] Comment on above: Result Comment: Cuto ff threshold at 200 ng/mL. Performed By: #### U TOX2, UAWMIC #### [place] [address] Cannabinoids, Urine Negative Normal Negative [facility] Comment on above: Result Comment: Cuto ff threshold at 50 ng/mL. Performed By: #### U TOX2, UAWMIC #### [place] [address] Cocaine, Urine Negative Normal Negative [facility] Comment on above: Result Comment: Cuto ff threshold at 300 ng/mL. Performed By: #### U TOX2, UAWMIC #### [place] [address] Ethanol, Urine <11 Normal <11 [facility] Comment on above: Performed By: #### U TOX2, UAWMIC #### [place] [address] Opiates, Urine Negative Normal Negative [facility] Comment on above: Result Comment: Cuto ff threshold at 300 ng/mL. Performed By: #### U TOX2, UAWMIC #### [place] [address] Oxycodone, Urine Negative Normal Negative [facility] Comment on above: Result Comment: Cuto ff threshold at 100 ng/mL. Comment: Immunoassay screen only. Cross reactivity with other substances can occur with immunoassay screening. Detection of any drug(s) in this urine toxicology panel is presumptive only. These tests are for medical purposes only and should not be used for compliance monitoring, legal, or forensic use. Samples should be within normal physiological conditions (e.g. pH). This assay does not include adulteration/specimen validity testing. In clinical settings, confirmatory testing is at the practitioner's discretion [1]. If clinically indicated, confirmation by high specificity, quantitative methodology, which includes adulteration/specimen validity testing, may be requested on the same specimen through Client Services ([phone]) if contacted within 48 hours of initial testing. [1]Substance Abuse and Mental Health Services Administration (2012). Clinical Drug Testing in Primary Care Technical Assistance Publication Series 32. [facility], [place], p.10. Performed By: #### U TOX2, UAWMIC #### [place] [address] Phencyclidine, Urine Negative Normal Negative [facility] Comment on above: Result Comment: Cuto ff threshold at 25 ng/mL. Performed By: #### U TOX2, UAWMIC #### [place] [address] Urinalysis with Microscopico n 03-06-2021 Bacteria Rare Critically abnormal Negative [facility] Comment on above: Performed By: #### U TOX2, UAWMIC #### [place] [address] Bilirubin, Urine Negative Normal Negative [facility] Comment on above: Performed By: #### U TOX2, UAWMIC #### [place] [address] Clarity (U) Clear Normal Clear [facility] Comment on above: Performed By: #### U TOX2, UAWMIC #### [place] [address] Color (U) Colorless Critically abnormal Yellow [facility] Comment on above: Performed By: #### U TOX2, UAWMIC #### [place] [phone] Comments SEE COMMENT Normal [facility] Comment on above: Result Comment: Micr oscopic Examination Performed Performed By: #### U TOX2, UAWMIC #### [place] [address] Epithelial cells LM Ql (Urine sed) SEE COMMENT Critically abnormal Negative [facility] Comment on above: Result Comment: Rare Squamous Epithelial Cells Performed By: #### U TOX2, UAWMIC #### [place] [address] Glucose Ql (U) Negative Normal Negative [facility] Comment on above: Performed By: #### U TOX2, UAWMIC #### [place] [phone] Hemoglobin/Blood,Ur Negative Normal Negative [facility] Comment on above: Performed By: #### U TOX2, UAWMIC #### [place] [address] Ketones Ql (U) Negative Normal Negative [facility] Comment on above: Performed By: #### U TOX2, UAWMIC #### [place] [address] Leukest Negative Normal Negative [facility] Comment on above: Performed By: #### U TOX2, UAWMIC #### [place] [address] Nitrite Ql (U) Negative Normal [facility] Comment on above: Performed By: #### U TOX2, UAWMIC #### [place] [address] pH (U) 7.0 [pH] Normal 5.0-8.0 [facility] Comment on above: Performed By: #### U TOX2, UAWMIC #### [place] [address] Protein, Urine Negative Normal [facility] Comment on above: Performed By: #### U TOX2, UAWMIC #### [place] [address] RBC Rare Critically abnormal Negative [facility] Comment on above: Performed By: #### U TOX2, UAWMIC #### [place] [id number] Specific [place], Ur 1.007 Normal 1.005-1.030 [facility] Comment on above: Performed By: #### U TOX2, UAWMIC #### [place] [address] Urobilinogen (U) [Mass/Vol] Negative Normal Negative [facility] Comment on above: Performed By: #### U TOX2, UAWMIC #### [facility] [address] [place] [address] WBC Rare Critically abnormal Negative [facility] Comment on above: Performed By: #### U TOX2, UAWMIC #### [facility] [address] [place] [address] Vital Signs Date Time Vital Sign Value Performing Clinician Facility 01-29-2023 10:15-0400 Body height 165.1 cm Mario Pee Other [facility] Other 01-29-2023 10:15-0400 Body mass index (BMI) [Ratio] 37.27 kg/m2 Mario Pee Other [facility] Other 01-29-2023 10:15-0400 Body temperature 96.9 [degF] Mario Pee Other [facility] Other 01-29-2023 10:15-0400 Body weight 101.61 kg Mario Pee Other [facility] Other 01-29-2023 10:15-0400 Diastolic blood pressure 70 mm[Hg] Mario Pee Other [facility] Other 01-29-2023 10:15-0400 Respiratory rate 20 /min Mario Pee Other [facility] Other 01-29-2023 10:15-0400 SaO2% (BldA) [Mass fraction] 99 % Mario Pee Other [facility] Other 01-29-2023 10:15-0400 Systolic blood pressure 110 mm[Hg] Mario Pee Other [facility] Other 12-12-2022 15:15-0400 Body height 165.1 cm Mario Pee Other [facility] Other 12-12-2022 15:15-0400 Body mass index (BMI) [Ratio] 37.77 kg/m2 Mario Pee Other [facility] Other 12-12-2022 15:15-0400 Body weight 102.97 kg Mario Pee Other [facility] Other 12-12-2022 15:15-0400 Diastolic blood pressure 60 mm[Hg] Mario Pee Other [facility] Other 12-12-2022 15:15-0400 Respiratory rate 20 /min Mario Pee Other [facility] Other 12-12-2022 15:15-0400 Systolic blood pressure 102 mm[Hg] Mario Pee Other [facility] Other 11-23-2022 01:18-0400 Diastolic blood pressure 83 mm[Hg] Kaylinn Dokken [facility] 11-23-2022 01:18-0400 Heart rate 64 /min Kaylinn Dokken [facility] 11-23-2022 01:18-0400 Mean blood pressure 94 mm[Hg] Kaylinn Dokken [facility] 11-23-2022 01:18-0400 Respiratory rate 19 /min Kaylinn Dokken [facility] 11-23-2022 01:18-0400 SaO2% (BldA) [Mass fraction] 97 % Kaylinn Dokken [facility] 11-23-2022 01:18-0400 Systolic blood pressure 117 mm[Hg] Kaylinn Dokken [facility] 11-23-2022 01:14-0400 Diastolic blood pressure 85 mm[Hg] Kaylinn Dokken [facility] 11-23-2022 01:14-0400 Heart rate 65 /min Kaylinn Dokken [facility] 11-23-2022 01:14-0400 Mean blood pressure 98 mm[Hg] Kaylinn Dokken [facility] 11-23-2022 01:14-0400 Respiratory rate 18 /min Kaylinn Dokken [facility] 11-23-2022 01:14-0400 SaO2% (BldA) [Mass fraction] 98 % Kaylinn Dokken [facility] 11-23-2022 01:14-0400 Systolic blood pressure 124 mm[Hg] Kaylinn Dokken [facility] 11-23-2022 00:00-0400 Body temperature 98.24 [degF] Kaylinn Dokken [facility] 11-23-2022 00:00-0400 Diastolic blood pressure 63 mm[Hg] Kaylinn Dokken [facility] 11-23-2022 00:00-0400 Mean blood pressure 77 mm[Hg] Kaylinn Dokken [facility] 11-23-2022 00:00-0400 SaO2% (BldA) [Mass fraction] 99 % Kaylinn Dokken [facility] 11-23-2022 00:00-0400 Systolic blood pressure 105 mm[Hg] Sonam Montoya [facility] 11-22-2022 22:00-0400 Heart rate 63 /min Sonam Montoya [facility] 11-22-2022 20:59-0400 Body temperature 98.06 [degF] Sonam Montoya [facility] 11-22-2022 20:59-0400 Respiratory rate 19 /min Sonam Montoya [facility] 11-14-2022 13:15-0400 Body height 165.1 cm Mario Pee Other [facility] Other 11-14-2022 13:15-0400 Body mass index (BMI) [Ratio] 37.77 kg/m2 Mario Pee Other [facility] Other 11-14-2022 13:15-0400 Body temperature 97.8 [degF] Mario Pee Other [facility] Other 11-14-2022 13:15-0400 Body weight 102.97 kg Mario Pee Other [facility] Other 11-14-2022 13:15-0400 Diastolic blood pressure 76 mm[Hg] Mario Pee Other [facility] Other 11-14-2022 13:15-0400 Respiratory rate 20 /min Mario Pee Other [facility] Other 11-14-2022 13:15-0400 SaO2% (BldA) [Mass fraction] 97 % Mario Pee Other [facility] Other 11-14-2022 13:15-0400 Systolic blood pressure 100 mm[Hg] Mario Pee Other [facility] Other 10-15-2022 14:45-0400 Body height 165.1 cm Mario Pee Other [facility] Other 10-15-2022 14:45-0400 Body mass index (BMI) [Ratio] 38.44 kg/m2 Mario Pee Other [facility] Other 10-15-2022 14:45-0400 Body temperature 96 [degF] Mario Pee Other [facility] Other 10-15-2022 14:45-0400 Body weight 104.78 kg Mario Pee Other [facility] Other 10-15-2022 14:45-0400 Diastolic blood pressure 78 mm[Hg] Mario Pee Other [facility] Other 10-15-2022 14:45-0400 Respiratory rate 20 /min Mario Pee Other [facility] Other 10-15-2022 14:45-0400 SaO2% (BldA) [Mass fraction] 97 % Mario Pee Other [facility] Other 10-15-2022 14:45-0400 Systolic blood pressure 122 mm[Hg] Mario Pee Other [facility] Other 09-17-2022 13:00-0400 Body height 165.1 cm Mario Pee Other [facility] Other 09-17-2022 13:00-0400 Body mass index (BMI) [Ratio] 39.27 kg/m2 Mario Pee Other [facility] Other 09-17-2022 13:00-0400 Body temperature 96.9 [degF] Mario Pee Other [facility] Other 09-17-2022 13:00-0400 Body weight 107.05 kg Mario Pee Other [facility] Other 09-17-2022 13:00-0400 Diastolic blood pressure 78 mm[Hg] Mario Pee Other [facility] Other 09-17-2022 13:00-0400 Respiratory rate 20 /min Mario Pee Other [facility] Other 09-17-2022 13:00-0400 SaO2% (BldA) [Mass fraction] 96 % Mario Pee Other [facility] Other 09-17-2022 13:00-0400 Systolic blood pressure 124 mm[Hg] Mairo Pee Other [facility] Other 05-02-2022 20:23-0500 Body temperature 98 [degF] DO Mario Pee Work Phone: [facility] 05-02-2022 20:23-0500 Diastolic blood pressure 78 mm[Hg] DO Mario Pee Work Phone: [facility] 05-02-2022 20:23-0500 Heart rate 104 /min DO Mario Pee Work Phone: [facility] 05-02-2022 20:23-0500 Respiratory rate 18 /min DO Mario Pee Work Phone: [facility] 05-02-2022 20:23-0500 SaO2% (BldA) [Mass fraction] 96 % DO Mario Pee Work Phone: [facility] 05-02-2022 20:23-0500 Systolic blood pressure 125 mm[Hg] DO Mario Pee Work Phone: [facility] 05-02-2022 16:20-0500 Inhaled oxygen flow rate 3 L/min DO Mario Pee Work Phone: [facility] 05-02-2022 06:52-0500 Body height 165.1 cm DO Mario Pee Work Phone: [facility] 05-02-2022 06:52-0500 Body mass index (BMI) [Ratio] 37.9 kg/m2 DO Mario Pee Work Phone: [facility] 05-02-2022 06:52-0500 Body weight 103.4 kg DO Mario Pee Work Phone: [facility] 04-24-2022 18:09-0500 Body height 165.1 cm DO Mario Pee Work Phone: [facility] 04-24-2022 18:09-0500 Body temperature 99.1 [degF] DO Mario Pee Work Phone: [facility] 04-24-2022 18:09-0500 Body weight 104.2 kg DO Mario Pee Work Phone: [facility] 04-24-2022 18:09-0500 Diastolic blood pressure 88 mm[Hg] DO Mario Pee Work Phone: [facility] 04-24-2022 18:09-0500 Heart rate 99 /min DO Mario Pee Work Phone: [facility] 04-24-2022 18:09-0500 Respiratory rate 19 /min DO Mario Pee Work Phone: [facility] 04-24-2022 18:09-0500 SaO2% (BldA) [Mass fraction] 96 % DO Mario Pee Work Phone: [facility] 04-24-2022 18:09-0500 Systolic blood pressure 124 mm[Hg] DO Mario Pee Work Phone: [facility] 04-17-2022 15:00-0500 Body height 165.1 cm Mario Pee Other [facility] Other 04-17-2022 15:00-0500 Body mass index (BMI) [Ratio] 38.77 kg/m2 Mario Pee Other [facility] Other 04-17-2022 15:00-0500 Body temperature 97.2 [degF] Mario Pee Other [facility] Other 04-17-2022 15:00-0500 Body weight 105.69 kg Mario Pee Other [facility] Other 04-17-2022 15:00-0500 Diastolic blood pressure 82 mm[Hg] Mario Pee Other [facility] Other 04-17-2022 15:00-0500 Respiratory rate 20 /min Mario Pee Other [facility] Other 04-17-2022 15:00-0500 SaO2% (BldA) [Mass fraction] 98 % Mario Pee Other [facility] Other 04-17-2022 15:00-0500 Systolic blood pressure 124 mm[Hg] Mario Pee Other [facility] Other 04-10-2022 08:44-0500 Body height 165.1 cm DO Mario Pee Work Phone: [facility] 04-10-2022 08:44-0500 Body temperature 98.3 [degF] DO Mario Pee Work Phone: [facility] 04-10-2022 08:44-0500 Body weight 105 kg DO Mario Pee Work Phone: [facility] 04-10-2022 08:44-0500 Diastolic blood pressure 82 mm[Hg] DO Mario Pee Work Phone: [facility] 04-10-2022 08:44-0500 Heart rate 80 /min DO Mairo Pee Work Phone: [facility] 04-10-2022 08:44-0500 Respiratory rate 16 /min DO Mario Pee Work Phone: [facility] 04-10-2022 08:44-0500 SaO2% (BldA) [Mass fraction] 98 % DO Mario Pee Work Phone: [facility] 04-10-2022 08:44-0500 Systolic blood pressure 125 mm[Hg] DO Mario Pee Work Phone: [facility] 12-12-2021 14:45-0400 Body height 165.1 cm Mario Pee Other [facility] Other 12-12-2021 14:45-0400 Body mass index (BMI) [Ratio] 37.27 kg/m2 Mario Pee Other [facility] Other 12-12-2021 14:45-0400 Body temperature 96.9 [degF] Mario Pee Other [facility] Other 12-12-2021 14:45-0400 Body weight 101.61 kg Mario Pee Other [facility] Other 12-12-2021 14:45-0400 Diastolic blood pressure 80 mm[Hg] Mario Pee Other [facility] Other 12-12-2021 14:45-0400 Respiratory rate 20 /min Mario Pee Other [facility] Other 12-12-2021 14:45-0400 SaO2% (BldA) [Mass fraction] 98 % Mario Pee Other [facility] Other 12-12-2021 14:45-0400 Systolic blood pressure 124 mm[Hg] Mario Pee Other [facility] Other 10-12-2021 09:30-0400 Body height 165.1 cm Mario Pee Other [facility] Other 10-12-2021 09:30-0400 Body mass index (BMI) [Ratio] 37.27 kg/m2 Mario Pee Other [facility] Other 10-12-2021 09:30-0400 Body temperature 98.3 [degF] Mario Pee Other [facility] Other 10-12-2021 09:30-0400 Body weight 101.61 kg Mario Pee Other [facility] Other 10-12-2021 09:30-0400 Diastolic blood pressure 80 mm[Hg] Mario Pee Other [facility] Other 10-12-2021 09:30-0400 Respiratory rate 18 /min Mario Epe Other [facility] Other 10-12-2021 09:30-0400 Systolic blood pressure 110 mm[Hg] Mario Pee Other [facility] Other 09-27-2021 17:00-0400 Body height 165.1 cm Mario Pee Other [facility] Other 09-27-2021 17:00-0400 Body mass index (BMI) [Ratio] 38.1 kg/m2 Mario Pee Other [facility] Other 09-27-2021 17:00-0400 Body temperature 97.6 [degF] Mario Pee Other [facility] Other 09-27-2021 17:00-0400 Body weight 103.87 kg Mario Pee Other [facility] Other 09-27-2021 17:00-0400 Diastolic blood pressure 62 mm[Hg] Mario Pee Other [facility] Other 09-27-2021 17:00-0400 Respiratory rate 20 /min Mario Pee Other [facility] Other 09-27-2021 17:00-0400 SaO2% (BldA) [Mass fraction] 97 % Mario Pee Other [facility] Other 09-27-2021 17:00-0400 Systolic blood pressure 122 mm[Hg] Mario Pee Other [facility] Other 05-30-2021 18:15-0500 Body height 165.1 cm Mario Pee Other [facility] Other 05-30-2021 18:15-0500 Body mass index (BMI) [Ratio] 37.6 kg/m2 Mario Pee Other [facility] Other 05-30-2021 18:15-0500 Body temperature 97.3 [degF] Mario Pee Other [facility] Other 05-30-2021 18:15-0500 Body weight 102.51 kg Mario Pee Other [facility] Other 05-30-2021 18:15-0500 Diastolic blood pressure 82 mm[Hg] Mario Pee Other [facility] Other 05-30-2021 18:15-0500 Respiratory rate 20 /min Mario Pee Other [facility] Other 05-30-2021 18:15-0500 SaO2% (BldA) [Mass fraction] 97 % Mario Pee Other [facility] Other 05-30-2021 18:15-0500 Systolic blood pressure 122 mm[Hg] Mario Pee Other [facility] Other 05-02-2021 18:30-0500 Body height 165.1 cm Mario Pee Other [facility] Other 05-02-2021 18:30-0500 Body mass index (BMI) [Ratio] 36.77 kg/m2 Mario Pee Other [facility] Other 05-02-2021 18:30-0500 Body temperature 97.6 [degF] Mario Pee Other [facility] Other 05-02-2021 18:30-0500 Body weight 100.25 kg Mario Pee Other [facility] Other 05-02-2021 18:30-0500 Diastolic blood pressure 70 mm[Hg] Mario Pee Other [facility] Other 05-02-2021 18:30-0500 Respiratory rate 20 /min Mario Pee Other [facility] Other 05-02-2021 18:30-0500 SaO2% (BldA) [Mass fraction] 96 % Mario Pee Other [employer] Other 05-02-2021 18:30-0500 Systolic blood pressure 118 mm[Hg] Mario Pee Other [employer] Other Encounters Encounter Date Encounter Type Care Provider Facility Start: 03-21-2023 End: 03-21-2023 ambulatory Mario Pee Other [employer] Other Start: 03-21-2023 Telephone encounter Mario Pee [facility] Start: 02-13-2023 End: 02-13-2023 ambulatory Mario Pee Other [employer] Other Start: 02-13-2023 Telephone encounter Mario Pee [facility] Start: 01-29-2023 End: 01-29-2023 ambulatory Mario Pee Other [employer] Other Start: 01-29-2023 Office outpatient visit 15 minutes Mario Pee [facility] Start: 01-21-2023 End: 01-21-2023 ambulatory Mario Pee Other [employer] Other Start: 01-21-2023 Telephone encounter Mario Pee [facility] Start: 01-01-2023 End: 01-02-2023 ambulatory Erin Chavez Facility:[facility] Start: 01-01-2023 End: 01-01-2023 Patient encounter procedure Erin Chavez [facility] Start: 12-20-2022 End: 12-20-2022 ambulatory Mario Pee Other [employer] Other Start: 12-20-2022 Telephone encounter Mario Pee [facility] Start: 12-12-2022 End: 12-12-2022 ambulatory Mario Pee Other [employer] Other Start: 12-12-2022 Office outpatient visit 15 minutes Mario Pee [facility] Start: 11-22-2022 End: 11-23-2022 Emergency department patient visit DO Sonam Montoya Facility:[facility] Start: 11-22-2022 End: 11-23-2022 Emergency department patient visit Sonam Montoya [facility] Start: 11-20-2022 End: 11-20-2022 ambulatory Mario Pee Other [employer] Other Start: 11-20-2022 Telephone encounter Mario Pee [facility] Start: 11-14-2022 End: 11-14-2022 ambulatory Mario Pee Other [employer] Other Start: 11-14-2022 Office outpatient visit 15 minutes Mario Pee [facility] Start: 10-15-2022 End: 10-15-2022 ambulatory Mario Pee Other [employer] Other Start: 10-15-2022 Office outpatient visit 25 minutes Mario Pee [facility] Start: 10-09-2022 End: 10-09-2022 ambulatory Mario Pee Other [employer] Other Start: 10-09-2022 Telephone encounter Mario Pee [facility] Start: 09-17-2022 End: 09-17-2022 ambulatory Mario Pee Other [employer] Other Start: 09-17-2022 Office outpatient visit 15 minutes Mario Pee [facility] Start: 09-17-2022 Telephone encounter Mario Pee [facility] Start: 08-13-2022 End: 08-14-[address] MARIO GLASGOW Facility: Start: 08-12-2022 End: 08-13-[address] MARIO M PEE Facility:[facility] Start: 08-09-2022 End: 08-09-2022 ambulatory Mario Pee Other [employer] Other Start: 08-09-2022 Telephone encounter Mario Pee [facility] Start: 07-08-2022 End: 07-08-2022 ambulatory Vi Benites Other [employer] Other Start: 07-08-2022 Telephone encounter Vi Mackwood [facility] Start: 06-17-2022 End: 06-17-2022 ambulatory Mario Pee Other [employer] Other Start: 06-17-2022 Telephone encounter Mario Pee [facility] Start: 06-14-2022 End: 06-14-2022 ambulatory Mario M. Pee Facility:[facility] Start: 06-14-2022 End: 06-14-2022 ambulatory DO Mario M. Pee Work Phone: [facility] Work Phone: Start: 06-14-2022 End: 06-14-2022 Departed Referred DO Mario Pee Work Phone: [facility] [place] Work Phone: Start: 06-07-2022 End: 06-07-2022 ambulatory Mario Pee Other [employer] Other Start: 06-07-2022 Telephone encounter Mario Pee [facility] Start: 05-09-2022 End: 05-09-2022 ambulatory Mario Pee Other [employer] Other Start: 05-09-2022 Telephone encounter Mario Pee [facility] Start: 05-06-2022 End: 05-06-2022 ambulatory Mario Pee Other [facility] [employer] Other Start: 05-06-2022 Telephone encounter Mario Pee [facility] Start: 05-02-2022 End: 05-03-2022 ambulatory Rell Garcia Facility:[facility] Start: 05-02-2022 End: 05-02-2022 Admission to same day surgery center DO Mario Pee Work Phone: [facility] [place] Start: 05-02-2022 End: 05-02-2022 ambulatory DO Mario M. Pee Work Phone: [facility] Work Phone: Start: 04-25-2022 Telephone encounter Mario Pee [facility] Start: 04-25-2022 End: 04-25-2022 Departed Referred DO Mario Pee Work Phone: [facility] [place] Start: 04-25-2022 End: 04-25-2022 ambulatory Rell Garcia [facility] [employer] Other Start: 04-24-2022 End: 04-24-2022 Emergency department patient visit Arun Alyse Ervin Facility:[facility] Start: 04-24-2022 End: 04-24-2022 Emergency department patient visit DO Mario Pee Work Phone: [facility] Work Phone: Start: 04-23-2022 End: 04-23-2022 ambulatory Mario M. Pee Facility:[facility] Start: 04-23-2022 End: 04-23-2022 Patient encounter procedure DO Mario Pee Work Phone: [facility] Work Phone: Start: 04-17-2022 End: 04-17-2022 ambulatory Mario Pee Other [employer] Other Start: 04-17-2022 Office outpatient visit 15 minutes Mario Pee [facility] Start: 04-17-2022 Telephone encounter Mario Pee [facility] Start: 04-16-2022 End: 04-16-2022 ambulatory Mario Pee Other [employer] Other Start: 04-16-2022 Telephone encounter Mario Pee [facility] Start: 04-10-2022 End: 04-10-2022 ambulatory Mario M. Pee Facility:[facility] Start: 04-10-2022 End: 04-10-2022 ambulatory DO Mario M. Pee Work Phone: [facility] Work Phone: Start: 04-10-2022 End: 04-10-2022 Patient encounter procedure DO Mario Pee Work Phone: [facility] Start: 04-09-2022 End: 04-09-2022 ambulatory Mario Pee Other [employer] Other Start: 04-09-2022 Telephone encounter Mario Pee [facility] Start: 04-08-2022 End: 04-08-2022 ambulatory Mario Pee Other [employer] Other Start: 04-08-2022 Telephone encounter Mario Pee [facility] Start: 03-28-2022 End: 03-30-[address] MARIO M PEE Facility: Start: 03-06-2022 End: 03-06-2022 ambulatory Mario Pee Other [employer] Other Start: 03-06-2022 Telephone encounter Mario Pee [facility] Start: 02-10-2022 End: 02-10-[address] MARIO Cullen PEE Facility:[facility] Start: 02-04-2022 End: 02-04-2022 ambulatory Mario Pee Other [employer] Other Start: 02-04-2022 Telephone encounter Mario Pee [facility] Start: 01-29-2022 End: 01-29-2022 ambulatory Mario Pee Other [employer] Other Start: 01-29-2022 Telephone encounter Mario Pee [facility] Start: 01-28-2022 End: 01-28-[address] MARIO Cullen PEE Facility:[facility] Start: 12-25-2021 End: 12-25-2021 ambulatory Mario Pee Other [employer] Other Start: 12-25-2021 Telephone encounter Mario Pee [facility] Start: 12-12-2021 End: 12-12-2021 ambulatory Mario Pee Other [employer] Other Start: 12-12-2021 Office outpatient visit 15 minutes Mario Pee [facility] Start: 11-26-2021 End: 11-26-2021 ambulatory Mario Pee Other [employer] Other Start: 11-26-2021 Telephone encounter Mario Pee [facility] Start: 11-21-2021 End: 11-21-2021 ambulatory Mario Pee Other [employer] Other Start: 11-21-2021 Telephone encounter Mario Pee [facility] Start: 11-05-2021 End: 11-05-2021 ambulatory Mario Pee Other [employer] Other Start: 11-05-2021 Telephone encounter Mario Pee [facility] Start: 10-29-2021 End: 10-29-[address] MARIO M PEE Facility: Start: 10-23-2021 End: 10-23-2021 ambulatory Mario Pee Other [employer] Other Start: 10-23-2021 Telephone encounter Mario Pee [facility] Start: 10-19-2021 End: 10-19-2021 ambulatory Mario Pee Other [employer] Other Start: 10-19-2021 Telephone encounter Mario Pee [facility] Start: 10-12-2021 End: 10-12-2021 ambulatory Mario Pee Other [employer] Other Start: 10-12-2021 Office outpatient visit 15 minutes Mario Pee [facility] Start: 10-12-2021 Telephone encounter Mario Pee [facility] Start: 10-01-2021 End: 10-01-2021 ambulatory Mario Pee Other [employer] Other Start: 10-01-2021 Telephone encounter Mario Pee [facility] Start: 09-27-2021 End: 09-27-2021 ambulatory Mario Pee Other [employer] Other Start: 09-27-2021 Office outpatient visit 15 minutes Mario Pee [facility] Start: 09-18-2021 End: 09-18-2021 ambulatory Mario Pee Other [employer] Other Start: 09-18-2021 Telephone encounter Mario Pee [facility] Start: 09-10-2021 End: 09-10-2021 ambulatory Mario Pee Other [employer] Other Start: 09-10-2021 Telephone encounter Mario Pee [facility] Start: 09-05-2021 End: 09-05-2021 Patient encounter procedure Erin Chavez [facility] Start: 08-13-2021 End: 08-13-2021 ambulatory Mario Pee Other [employer] Other Start: 08-13-2021 Telephone encounter Mario Pee [facility] Start: 08-01-2021 End: 08-01-2021 ambulatory Mario Pee Other [employer] Other Start: 08-01-2021 Telephone encounter Mario Pee [facility] Start: 07-06-2021 End: 07-06-2021 ambulatory Vi Martinawood Other [employer] Other Start: 07-06-2021 Telephone encounter Vi Easterwood [facility] Start: 06-18-2021 End: 06-18-2021 ambulatory Mario Pee Other [employer] Other Start: 06-18-2021 Telephone encounter Mario Pee [facility] Start: 06-08-2021 End: 06-08-2021 ambulatory Mario Pee Other [employer] Other Start: 06-08-2021 Telephone encounter Mario Pee [facility] Start: 05-30-2021 End: 05-30-2021 ambulatory Mario Pee Other [employer] Other Start: 05-30-2021 Office outpatient visit 15 minutes Mario Pee [facility] Start: 05-21-2021 End: 05-21-2021 ambulatory Mario Pee Other [employer] Other Start: 05-21-2021 Telephone encounter Mario Pee [facility] Start: 05-09-2021 End: 05-09-2021 ambulatory Mario Pee Other [employer] Other Start: 05-09-2021 Telephone encounter Mario Pee [facility] Start: 05-08-2021 End: 05-08-2021 ambulatory Mario Pee Other [employer] Other Start: 05-08-2021 Telephone encounter Mario Pee [facility] Start: 05-02-2021 End: 05-02-2021 ambulatory Mario Pee Other [employer] Other Start: 05-02-2021 Office outpatient visit 15 minutes Mario Pee [facility] Procedures Date Procedure Procedure Detail Performing Clinician Start: 06-14-2022 Urine culture DO Mario R uggles Work Phone: Start: 05-02-2022 Antibody screen Mario Ru ggles Comment on above: Result Comment: PERF ORMED BY: [facility] [address] [place] [address] PATHOLOGIST BODY ART TECHNICIAN LEV HERNÁNDEZ M.D. Start: 05-02-2022 Total hysterectomy v ia vaginal approach DO Mario Pee Work Phone: Start: 04-23-2022 SARS Antigen (LFIA) DO Mario Pee Work Phone: Start: 04-10-2022 Antibody screen Mario Ru gggiulia Comment on above: Order Comment: Date of Surgery: [id number] Result Comment: PERF ORMED BY: [facility] [address] PATHOLOGIST BODY ART TECHNICIAN LEV HERNÁNDEZ M.D. Start: 04-10-2022 Urine culture DO Mario R uggles Work Phone: Start: 06-19-2018 Cystoscopic removal of ureteric stent Erin Lue Start: 06-18-2018 Cystoscopic insertio n of ureteric stent Erin Lue Start: 04-21-2017 Cystourethroscopy an d dilation of bladder Erin Lue Start: 06-12-2016 Cystoscopy with hydrodistention Erin Lue Start: 07-21-2015 Endometrial ablation Ka thy Lue Bilateral complete salpingectomy Erin Lue Cyst of ovary (disorder) Kristi hy Lue Comment on above: right Cystourethroscopy wi th dilation of urethral stricture Erin Lue H/O: hysterectomy Mario Ruggl es Other Nephrostomy tube Erin Lue nephrostomy tube Erin Lue nephrostomy tube wit h last preg Erin Lue Other bilateral liga tion and division of fallopian tubes Erin Lue Plan of Treatment Date Care Activity Detail Author Start: 05-02-2022 [facility] Start: 04-25-2022 Total hysterectomy v ia vaginal approach OR Vag Hyster Lap Assist TLH/LAVH (Not Applicable) [facility] Start: 04-24-2022 Blood chemistry [facility] Start: 04-24-2022 Hepatic function panel [facility] Start: 04-24-2022 Lipase measurement [facility] Start: 04-24-2022 [facility] Bacteria identified in Urine by Culture [facility] Bacteria identified in Urine by Culture [facility] Patient referral [facility] Work Phone: Immunizations Immunization Date Immunization Notes Care Provider Fa cility NEGATED: Highlighted row has not occurred!05-16-2021 SARS-CoV-2 (COVID-19) Ad26 vaccine, recombinant Erin Chavez [facility] Payers Date Payer Category Payer Self-pay [id number] 1990 Unknown [id number] 1989 Unknown [id number] 1989 Unknown [id number] 1989 Unknown [id number] 1989 Unknown [id number] [id number] 1989 Unknown [id number] [id number] 1989 Unknown [id number] [id number] 1989 Unknown [id number] [id number] 1989 Unknown [id number] [id number] 1960 Medicaid [id number] 1960 Unknown [id number] 2.1 [id number] Unknown Regular Auto/Liability [id number] Unknown [id number] Unknown [id number] [id number] Unknown [id number] [id number] Unknown [id number] [id number] Unknown [id number] Unknown [id number] Social History Date Type Detail Facility Start: 05-16-2021 End: 05-02-2022 Tobacco smoking status Never smoked tobacco (finding) [facility] [employer] Other Tobacco smoking status Never [facility] Sex Assigned At Female [employer] Other Start: 1990 Sex Assigned At Female F [facility] Goals Date Patient Goal Desired Activity /State Functional Status Date Assessment Result Facility 11-22-2022 Functional Status N/A [facility] Clinical Notes 03-06-2021 to 02-13-2023 Note Date & Type Note Facility 02-13-2023 Evaluation note Encounter Date Diagnosis Assessment Notes Jan, Anxiety (ICD-10 - F41.9) [facility] [employer] Other 10-11-2023 Evaluation note* Encounter Date Diagnosis Assessment Notes Treatment Notes Treatment Clinical Notes Jan, BMI 37.0-37.9, adult (ICD-10 - Z68.37) [facility] - eRX sent. We did discuss that she needs to do a better job with the monitoring of her diet. If her weight loss does not improve, we must consider withholding medication. She voices agreement and understanding. [employer] Other 10-03-2023 Evaluation note* Encounter Date Diagnosis Assessment Notes Treatment Notes Treatment Clinical Notes Jan, Anxiety (ICD-10 - F41.9) [employer] Other 09-01-2023 Evaluation note* Encounter Date Diagnosis Assessment Notes Treatment Notes Treatment Clinical Notes Dec, Anxiety (ICD-10 - F41.9) [employer] Other 08-24-2023 Evaluation note* Encounter Date Diagnosis Assessment Notes Treatment Notes Treatment Clinical Notes Nov, BMI 37.0-37.9, adult (ICD-10 - Z68.37) [facility] -E Rx sent. No other change today. We will recheck in 1 month. [employer] Other 08-05-2023 Hospital Discharge instructions Patient Education 11/23/2022 01:20:40 Endometriosis Endometriosis Endometriosis is a condition in which tissue that forms the lining of the uterus grows in places outside the uterus. This tissue can grow in the organs that create the eggs (ovaries), in the tubes that carry the eggs to the uterus (fallopian tubes), in the vagina, and in the bowel. This tissue mostoften grows on the ovaries and inner lining of the pelvic cavity (peritoneum). What are the causes? The cause of this condition is not known. What increases the risk? The following factors may make you more likely to develop this condition: Having a family history of endometriosis. Having never given . Starting your menstrual period at age 10 or younger. What are the signs or symptoms? Often, there are no symptoms of this condition. If you do have symptoms, they may include: Heavier bleeding during menstrual periods. Menstrual periods that happen more than once a month. Not being able to get . Pain in the area between your hip bones (pelvis). Pain during sex. Pain in the back or abdomen. Painful bowel movements and urination during menstrual periods. Rarely, you may see blood in your stool or urine. The timing of symptoms may vary, depending on where the abnormal tissue is growing. They may happen during your menstrual period (most often) or at the middle of your cycle. They may come and go. You may have no symptoms during some months. They may stop when you no longer have your monthly periods (menopause). How is this diagnosed? This condition is diagnosed based on your symptoms and a physical exam. You may also have tests, such as: Blood tests and urine tests to help rule out other causes. Ultrasound to look for tissues that are not normal. This is often done over your skin (transabdominal). It is sometimes done through the vagina (transvaginal). X-ray of the lower bowel (barium enema). CT scan. MRI. To confirm the diagnosis, your health care provider may use a device with a small camera to check tissue inside your abdomen (laparoscopy). Abnormal tissue may be removed and checked in a lab (biopsy). How is this treated? There is no cure for this condition. The treatment goal is to control your symptoms. The type of treatment also depends on whether you want to become in the future. This condition may be treated with: Medicines. These may include: ?Medicines to relieve pain, including NSAIDs, such as ibuprofen. ?Hormone therapy, such as control pills, to slow the growth of abnormal tissue. Surgery to remove the abnormal tissue. During surgery, the following may happen: ?Tissue may be removed using a laparoscope and a laser (laparoscopic laser treatment). ?The ovaries, fallopian tubes, and uterus may be removed (hysterectomy). This is done in very severe cases. Follow these instructions at home: Medicines Take iviu-hyx-legoacq and prescription medicines only as told by your health care provider. Ask your health care provider if the medicine prescribed to you: ?Requires you to avoid driving or using machinery. ?Can cause constipation. You may need to take these actions to prevent or treat constipation: ?Drink enough fluid to keep your urine pale yellow. ?Take ahwo-zgm-eptbhwz or prescription medicines. ?Eat foods that are high in fiber, such as beans, whole grains, and fresh fruits and vegetables. ?Limit foods that are high in fat and processed sugars, such as fried or sweet foods. Eating and drinking If you drink alcohol: ?Limit how much you have to 0 1 drink a day for women who are not . ?Know how much alcohol is in your drink. In the [place] one drink equals one 12 oz bottle of beer (355 mL), one 5 oz glass of wine (148 mL), or one 1 oz glass of hard liquor (44 mL). Avoid caffeine. Activity Return to your normal activities as told by your health care provider. Ask your health care provider what activities are safe for you. Do exercises as told by your health care provider. General instructions Do not use any products that contain nicotine or tobacco. These products include cigarettes, chewing tobacco, and vaping devices, such as e-cigarettes. If you need help quitting, ask your health careprovider. Keep all follow-up visits. This is important. Where to find more information [employer]: www.acog.org Office on Women's Health: www.womenshealth.gov Contact a health care provider if: You have new pain or trouble controlling pain. You have problems getting . You have a fever. Get help right away if: You have severe pain that does not get better with medicine. You have severe nausea and vomiting, or you cannot eat or drink without vomiting. You have pain in your abdomen only on the lower right side. Pain in your abdomen gets worse. You have swelling in your abdomen. You have blood in your stool. Summary Endometriosis is a condition that happens when tissue that forms the lining of the uterus grows in places outside the uterus. The cause of this condition is not known. This condition may be treated with medicines to relieve pain, hormone therapy, or surgery. If you have this condition, get regular exercise, limit alcohol use, and avoid caffeine. Get help right away if you have severe pain that does not get better with medicine, severe nausea and vomiting, pain or swelling in your abdomen, or blood in your stool. This information is not intended to replace advice given to you by your health care provider. Make sure you discuss any questions you have with your health care provider. Document Revised: 11/08/2020 Document Reviewed: 11/08/2020 [employer] Patient Education 2022 [employer]. 11/23/2022 01:20:40 Laparoscopic Lysis of Abdominal Adhesions Laparoscopic Lysis of Abdominal Adhesions Laparoscopic lysis of abdominal adhesions is a surgical procedure to remove tough (fibrous) bands of tissue from the abdomen. Adhesions are like scars, but they form on the inside of the body. They are caused by inflammation and often develop after a previous surgery or infection as part of the healing process. You may need this procedure if you have abdominal adhesions that are causing pain or other symptoms. During the procedure, the surgeon inserts a thin tube that has a light and camera on the end of it (laparoscope) into the abdomen. The camera sends images to a screen in the operating room, and theseimages are used to help guide the surgery. This type of surgery is done through small incisions, rather than one large incision. Tell a health care provider about: Any allergies you have. All medicines you are taking, including vitamins, herbs, eye drops, creams, and beqi-gml-nliktbj medicines. Any problems you or family members have had with anesthetic medicines. Any blood disorders you have. Any surgeries you have had. Any medical conditions you have. Whether you are or may be . What are the risks? Generally, this is a safe procedure. However, problems may occur, including: Infection. Bleeding. Allergic reactions to medicines. Damage to abdominal organs. Development of more abdominal adhesions. What happens before the procedure? Staying hydrated Follow instructions from your health care provider about hydration, which may include: Up to 2 hours before the procedure you may continue to drink clear liquids, such as water, clear fruit juice, black coffee, and plain tea. Eating and drinking restrictions Follow instructions from your health care provider about eating and drinking, which may include: 8 hours before the procedure stop eating heavy meals or foods, such as meat, fried foods, or fatty foods. 6 hours before the procedure stop eating light meals or foods, such as toast or cereal. 6 hours before the procedure stop drinking milk or drinks that contain milk. 2 hours before the procedure stop drinking clear liquids. Medicines Ask your health care provider about: Changing or stopping your regular medicines. This is especially important if you are taking diabetes medicines or blood thinners. Taking medicines such as aspirin and ibuprofen. These medicines can thin your blood. Do not take these medicines unless your health care provider tells you to take them. Taking nhbm-fvi-zrgrrhm medicines, vitamins, herbs, and supplements. General instructions Do not use any products that contain nicotine or tobacco for at least 4 weeks before the procedure.These products include cigarettes, chewing tobacco, and vaping devices, such as e-cigarettes. If you need help quitting, ask your health care provider. You may have a blood or urine sample taken. Ask your health care provider: ?How your surgery site will be marked. ?What steps will be taken to help prevent infection. These steps may include: ?Removing hair at the surgery site. ?Washing skin with a germ-killing soap. ?Receiving antibiotic medicine. Plan to have a responsible adult take you home from the hospital or clinic. What happens during the procedure? An IV will be inserted into one of your veins. You will be given one or more of the following: ?A medicine to help you relax (sedative). ?A medicine to numb the area (local anesthetic). ?A medicine to make you fall asleep (general anesthetic). A tube may be passed through your nose or mouth and into your stomach (nasogastric tube). The surgeon will make a small incision through the wall of your abdomen. Your abdomen will be filled with a gas. This will help your surgeon see the inside of your abdomen more clearly. It will also give the surgeon more room to operate. A laparoscope with a camera on the end will be passed through the incision. It will send images to a monitor in the operating room. Other small incisions may be made in your abdomen. Long, thin surgical instruments will be insertedthrough them as needed. The adhesions will be removed or destroyed with surgical instruments by your surgeon. The incisions will be closed with adhesive strips or stitches (sutures). A bandage (dressing) will be placed over the incisions. The procedure may vary among health care providers and hospitals. What happens after the procedure? Your blood pressure, heart rate, breathing rate, and blood oxygen level will be monitored until youleave the hospital or clinic. You may have some pain. You will get pain medicine as needed. You will be encouraged to get up and walk around while you are still in the hospital. If you have a nasogastric tube, it will be removed when your bowel function returns. After that, you will be allowed to eat or drink as usual. When you are taking fluids well, your IV will be removed. Summary Laparoscopic lysis of abdominal adhesions is a surgical procedure to remove scar tissue (adhesions)from inside your body. You may need this procedure if you have abdominal adhesions that are causing pain or other symptoms. After surgery, you will receive medicines and fluid through an IV until your bowel function returnsto normal. After that, you will be allowed to eat or drink as usual. This information is not intended to replace advice given to you by your health care provider. Make sure you discuss any questions you have with your health care provider. Document Revised: 12/15/2020 Document Reviewed: 12/15/2020 [employer] Patient Education 2022 [employer]. 11/23/2022 01:20:40 Adhesions, Rkgq-rf-Mkxl Adhesions Adhesions are strings of tissue that stick together. They are like scars, but they form inside yourbody and not on your skin. They can stick to organs and tissues and pull them out of place. They can also keep food and other things from moving through the body like normal. What are the causes? This condition is caused by irritation and swelling (inflammation) in the body. It can occur after: Surgery. An infection. Treatment with high-energy rays (radiation). Other things that cause irritation and swelling in the body. What increases the risk? Having had surgery in the belly (abdomen). Being a woman who has had more than one baby by . What are the signs or symptoms? Symptoms of this condition depend on where the adhesions form. They may take weeks, months, or years to develop. Symptoms may include: Pain in the belly or in the area between your hip bones (pelvis). This is the most common symptom. Bloating. Trouble pooping (constipation). Watery poop (diarrhea). Vomiting. Pain during sex. Having a hard time getting . Often, there are no symptoms. How is this treated? Treatment depends on where the adhesions are in the body and the symptoms they are causing. If there are symptoms, treatment may include: Medicines. Surgery. If there are no symptoms, treatment may not be needed. Follow these instructions at home: Take kvck-cej-zoxgcax and prescription medicines only as told by your doctor. If you were prescribed an antibiotic medicine, take it as told by your doctor. Do not stop using iteven if you start to feel better. Follow instructions from your doctor about eating and drinking. In some cases, you may be told to eat a liquid diet or a low-fiber diet. Keep all follow-up visits. Contact a doctor if: You have a fever or chills. You have pain in your belly or pelvis. You vomit. You are bloated. Your belly swells. Your gut (bowel) makes loud sounds. You have trouble pooping. Get help right away if: You have very bad pain in your belly or pelvis, and it is getting worse. You keep vomiting. You cannot pass gas. You cannot poop. These symptoms may be an emergency. Get help right away. Call your local emergency services (911 int [place] Do not wait to see if the symptoms will go away. Do not drive yourself to the hospital. Summary Adhesions are strings of tissue that stick together in the body. They can stick to organs and tissues and pull them out of place. Treatment may include medicines and surgery. Take hajc-tot-rcuavne and prescription medicines only as told by your doctor. This information is not intended to replace advice given to you by your health care provider. Make sure you discuss any questions you have with your health care provider. Document Revised: 12/15/2020 Document Reviewed: 12/15/2020 [employer] Patient Education 2022 [employer]. 11/23/2022 01:20:40 Abdominal Pain, Adult, Wbev-kl-Lgbf Abdominal Pain, Adult Many things can cause belly (abdominal) pain. Most times, belly pain is not dangerous. Many cases of belly pain can be watched and treated at home. Sometimes, though, belly pain is serious. Your doctor will try to find the cause of your belly pain. Follow these instructions at home: Medicines Take xinq-hdd-ptzwpsw and prescription medicines only as told by your doctor. Do not take medicines that help you poop (laxatives) unless told by your doctor. General instructions Watch your belly pain for any changes. Drink enough fluid to keep your pee (urine) pale yellow. Keep all follow-up visits as told by your doctor. This is important. Contact a doctor if: Your belly pain changes or gets worse. You are not hungry, or you lose weight without trying. You are having trouble pooping (constipated) or have watery poop (diarrhea) for more than 2 3 days. You have pain when you pee or poop. Your belly pain wakes you up at night. Your pain gets worse with meals, after eating, or with certain foods. You are vomiting and cannot keep anything down. You have a fever. You have blood in your pee. Get help right away if: Your pain does not go away as soon as your doctor says it should. You cannot stop vomiting. Your pain is only in areas of your belly, such as the right side or the left lower part of the belly. You have bloody or black poop, or poop that looks like tar. You have very bad pain, cramping, or bloating in your belly. You have signs of not having enough fluid or water in your body (dehydration), such as: ?Dark pee, very little pee, or no pee. ?Cracked lips. ?Dry mouth. ?Sunken eyes. ?Sleepiness. ?Weakness. You have trouble breathing or chest pain. Summary Many cases of belly pain can be watched and treated at home. Watch your belly pain for any changes. Take fnpv-fhv-ixiydjv and prescription medicines only as told by your doctor. Contact a doctor if your belly pain changes or gets worse. Get help right away if you have very bad pain, cramping, or bloating in your belly. This information is not intended to replace advice given to you by your health care provider. Make sure you discuss any questions you have with your health care provider. Document Revised: 08/16/2019 Document Reviewed: 08/16/2019 [employer] Patient Education 2022 [employer]. Follow Up Care 11/22/2022 19:01:50 With:MARIO GLASGOW Address: [address] [facility] [place] [phone] Business (1) When:11/26/2022 [facility]07-27-2023 Evaluation note* Encounter Date Diagnosis Assessment Notes Treatment Notes Treatment Clinical Notes Oct, BMI 37.0-37.9, adult (ICD-10 - Z68.37) [facility] - eRX sent. Call with any concerns. [employer] Other 06-27-2023 Evaluation note* Encounter Date Diagnosis Assessment Notes Treatment Notes Treatment Clinical Notes Sep, BMI 38.0-38.9,adult (ICD-10 - Z68.38) E Rx sent. Discussed with patient that in the past she would not been allowed to continue the medication since she missed a month. I am not sure that this is still the rule. We will see what the pharmacist says. We will proceed with a 1 month follow-up to gauge further improvement. Sep, Anxiety (ICD-10 - F41.9) [facility] -[facility] sent. No other change today. I continue to caution patient to use this medication very judiciously. She voices agreement and understanding. Sep, Seasonal allergies (ICD-10 - J30.2) E Rx sent. No other change today. We will see patient back for follow-up. [employer] Other 05-30-2023 Evaluation note* Encounter Date Diagnosis Assessment Notes Treatment Notes Treatment Clinical Notes August, BMI 39.0-39.9,adult (ICD-10 - Z68.39) [facility] - [facility] sent. Call with any concern. [facility] Other 05-30-2023 Evaluation note* Encounter Date Diagnosis Assessment Notes Treatment Notes Treatment Clinical Notes August, BMI 39.0-39.9,adult (ICD-10 - Z68.39) [facility] Other 12-28-2022 Evaluation note* Encounter Date Diagnosis Assessment Notes Treatment Notes Treatment Clinical Notes Mar, Abnormal menses (ICD-10 - N92.6) Lengthy discussion with patient today that I feel comfortable clearing her for surgery. There was some discussion about her seizure disorder, but this has been well controlled now for a number of years and I do not feel that she will have any problem with this. She had surgery earlier this year, with out any concerns with anesthesia. [facility] Other 09-06-2022 Evaluation note* Encounter Date Diagnosis Assessment Notes Treatment Notes Treatment Clinical Notes Dec, BMI 36.0-36.9,adult (ICD-10 - Z68.36) [facility] Other 08-24-2022 Evaluation note* Encounter Date Diagnosis Assessment Notes Treatment Notes Treatment Clinical Notes Nov, Erythema ab igne (ICD-10 - L59.0) Lengthy discussion with patient today that I really would like her to try to limit the use of her heating pad is much as possible. I suggest that she may want to invest in a heating pad that we will turn off much more quickly so that she is not sleeping on it for 2 hours every night. She voices agreement and understanding. Nov, BMI 37.0-37.9, adult (ICD-10 - Z68.37) Patient is to call next week when she desires the third and final prescription of the Adipex. [facility] Other 08-03-2022 Evaluation note* Encounter Date Diagnosis Assessment Notes Treatment Notes Treatment Clinical Notes Nov, BMI 36.0-36.9,adult (ICD-10 - Z68.36) [facility] [employer] Other 07-05-2022 Evaluation note* Encounter Date Diagnosis Assessment Notes Treatment Notes Treatment Clinical Notes Oct, Conjunctivitis (ICD9-CM - 372.30) [facility] Other 06-24-2022 Evaluation note* Encounter Date Diagnosis Assessment Notes Treatment Notes Treatment Clinical Notes Sep, BMI 37.0-37.9, adult (ICD-10 - Z68.37) [facility] sent. Lengthy discussion regarding side effects as well as possible outcomes of the medication. We will see her back in 1 month. Patient to call with any concerns. [facility] Other 06-24-2022 Evaluation note* Encounter Date Diagnosis Assessment Notes Treatment Notes Treatment Clinical Notes Sep, BMI 37.0-37.9, adult (ICD-10 - Z68.37) [facility] [employer] Other 06-13-2022 Evaluation note* Encounter Date Diagnosis Assessment Notes Treatment Notes Treatment Clinical Notes Sep, BMI 38.0-38.9,adult (ICD-10 - Z68.38) [facility] [employer] Other 06-09-2022 Evaluation note* Encounter Date Diagnosis Assessment Notes Treatment Notes Treatment Clinical Notes Sep, Vitamin D deficiency (ICD-10 - E55.9) E Rx sent. No other change today. Sep, BMI 38.0-38.9,adult (ICD-10 - Z68.38) E Rx sent. I discussed with patient that we will just have to see if insurance is willing to cover this. I do not feel she is a good candidate for Adipex, based on her concerns with her psychiatric diagnoses/as well as her seizure concerns. [facility] Other 04-27-2022 Hospital Discharge instructions Patient Education 08/15/2021 08:05:30 Overactive Bladder, Adult Overactive Bladder, Adult Overactive bladder refers to a condition in which a person has a sudden need to pass urine. The person may leak urine if he or she cannot get to the bathroom fast enough (urinary incontinence). A person with this condition may also wake up several times in the night to go to the bathroom. Overactive bladder is associated with poor nerve signals between your bladder and your brain. Your bladder may get the signal to empty before it is full. You may also have very sensitive muscles thatmake your bladder squeeze too soon. These symptoms might interfere with daily work or social activities. What are the causes? This condition may be associated with or caused by: Urinary tract infection. Infection of nearby tissues, such as the prostate. Prostate enlargement. Surgery on the uterus or urethra. Bladder stones, inflammation, or tumors. Drinking too much caffeine or alcohol. Certain medicines, especially medicines that get rid of extra fluid in the body (diuretics). Muscle or nerve weakness, especially from: ?A spinal cord injury. ?Stroke. ?Multiple sclerosis. ?Parkinson's disease. Diabetes. Constipation. What increases the risk? You may be at greater risk for overactive bladder if you: Are an older adult. Smoke. Are going through menopause. Have prostate problems. Have a neurological disease, such as stroke, dementia, Parkinson's disease, or multiple sclerosis (MS). Eat or drink things that irritate the bladder. These include alcohol, spicy food, and caffeine. Are overweight or obese. What are the signs or symptoms? Symptoms of this condition include: Sudden, strong urge to urinate. Leaking urine. Urinating 8 or more times a day. Waking up to urinate 2 or more times a night. How is this diagnosed? Your health care provider may suspect overactive bladder based on your symptoms. He or she will diagnose this condition by: A physical exam and medical history. Blood or urine tests. You might need bladder or urine tests to help determine what is causing your overactive bladder. You might also need to see a health care provider who specializes in urinary tract problems (urologist). How is this treated? Treatment for overactive bladder depends on the cause of your condition and whether it is mild or severe. You can also make lifestyle changes at home. Options include: Bladder training. This may include: ?Learning to control the urge to urinate by following a schedule that directs you to urinate at regular intervals (timed voiding). ?Doing Kegel exercises to strengthen your pelvic floor muscles, which support your bladder. Toning these muscles can help you control urination, even if your bladder muscles are overactive. Special devices. This may include: ?Biofeedback, which uses sensors to help you become aware of your body's signals. ?Electrical stimulation, which uses electrodes placed inside the body (implanted) or outside the body. These electrodes send gentle pulses of electricity to strengthen the nerves or muscles that control the bladder. ?Women may use a plastic device that fits into the vagina and supports the bladder (pessary). Medicines. ?Antibiotics to treat bladder infection. ?Antispasmodics to stop the bladder from releasing urine at the wrong time. ?Tricyclic antidepressants to relax bladder muscles. ?Injections of botulinum toxin type A directly into the bladder tissue to relax bladder muscles. Lifestyle changes. This may include: ?Weight loss. Talk to your health care provider about weight loss methods that would work best for you. ?Diet changes. This may include reducing how much alcohol and caffeine you consume, or drinking fluids at different times of the day. ?Not smoking. Do not use any products that contain nicotine or tobacco, such as cigarettes and e-cigarettes. If you need help quitting, ask your health care provider. Surgery. ?A device may be implanted to help manage the nerve signals that control urination. ?An electrode may be implanted to stimulate electrical signals in the bladder. ?A procedure may be done to change the shape of the bladder. This is done only in very severe cases. Follow these instructions at home: Lifestyle Make any diet or lifestyle changes that are recommended by your health care provider. These may include: ?Drinking less fluid or drinking fluids at different times of the day. ?Cutting down on caffeine or alcohol. ?Doing Kegel exercises. ?Losing weight if needed. ?Eating a healthy and balanced diet to prevent constipation. This may include: ?Eating foods that are high in fiber, such as fresh fruits and vegetables, whole grains, and beans. ?Limiting foods that are high in fat and processed sugars, such as fried and sweet foods. General instructions Take gwit-ctm-udhguer and prescription medicines only as told by your health care provider. If you were prescribed an antibiotic medicine, take it as told by your health care provider. Do notstop taking the antibiotic even if you start to feel better. Use any implants or pessary as told by your health care provider. If needed, wear pads to absorb urine leakage. Keep a journal or log to track how much and when you drink and when you feel the need to urinate. This will help your health care provider monitor your condition. Keep all follow-up visits as told by your health care provider. This is important. Contact a health care provider if: You have a fever. Your symptoms do not get better with treatment. Your pain and discomfort get worse. You have more frequent urges to urinate. Get help right away if: You are not able to control your bladder. Summary Overactive bladder refers to a condition in which a person has a sudden need to pass urine. Several conditions may lead to an overactive bladder. Treatment for overactive bladder depends on the cause and severity of your condition. Follow your health care provider's instructions about lifestyle changes, doing Kegel exercises, keeping a journal, and taking medicines. This information is not intended to replace advice given to you by your health care provider. Make sure you discuss any questions you have with your health care provider. Document Released: 02/01/2010 Document Revised: 07/29/2019 Document Reviewed: 04/23/2018 [employer] Patient Education 2019 [employer]. [facility] 02-09-2022 Evaluation note* Encounter Date Diagnosis Assessment Notes Treatment Notes Treatment Clinical Notes May, Bunion, right foot (ICD-10 - M21.611) Certainly able to proceed with surgery - Podiatry - She voices agreement and understanding. This of course is dependent on the results of any presurgical testing that podiatry may want to pursue. May, Anxiety (ICD-10 - F41.9) Patient freely admits that she is under a lot of stress between the bunion surgery and potential upcoming urology surgery. She wonders if she could for a short while have an increased dose of the Xanax. I think this is not unreasonable. When pt to call for refill - I am ok with increasing to 2mg at that time of refill need. [facility] [employer] Other 01-18-2022 Evaluation note* Encounter Date Diagnosis Assessment Notes Treatment Notes Treatment Clinical Notes Apr, Dysuria (ICD-10 - R30.0) [facility] Other 01-12-2022 Evaluation note* Encounter Date Diagnosis Assessment Notes Treatment Notes Treatment Clinical Notes Apr, Bunion of great toe of right foot (ICD-10 - M21.611) Lengthy discussion with patient today that certainly this is something that needs to be reviewed by podiatry. We will go ahead and make referral. Apr, Right flank pain (ICD-10 - R10.9) Discussed with patient that I think it would be reasonable to go ahead and try to get at least a plain image of the KUB, and this will be helpful for urology when she sees them next week. She voices agreement and understanding. [employer] Other 11-17-2021 NoteHNO ID: [id number] Author: Rosalie Haile MD Service: ? Author Type: Physician Type: Progress Notes Filed: 03/08/2021 8:38 PM Note Text: [facility] - General Progress Note SULLY ENRIQUEZ : 1990 AGE: 31 SEX: F CSN: [id number] [facility]: [facility] LOCATION: [facility] ATTENDING PHYSICIAN: Rosalie Haile M.D. DATE OF SERVICE: 03/07/2021 TIME OF SERVICE: 03:00 PM SUBJECTIVE: Patient with a history of diabetes and obesity. Admitted to the hospital with seizure. ASSESSMENT AND PLAN: 1. Seizure. Admitted to the hospital. Seizure precaution. Check electrolytes. Neuro consultation. Consider EEG. MRI of the brain. 2. Diabetes type 2. Sliding scale insulin. 3. Obesity. Need to lose weight. Benefit from outpatient sleep study. Case has been discussed with ED physician, consultants. We will follow up. Rosalie Haile M.D. Internal Medicine ESPINOZA:[id number] NoteHNO ID: [id number] Author: Saravanan Yancey MD Service: Neurology General Author Type: Resident Type: Plan of Care Filed: 03/07/2021 2:56 PM Note Text: NEUROLOGY PLAN OF CARE MRI pending, headache slightly better, patient appears generally improved this morning compared to yesterday, EEG ordered by primary team prelim normal. No further workup indicated inpatient. Should her headache resolve and the patient wish to go home, the MRI can be done as outpatient. Will await MRI results. Saravanan Yancey MD DPdcl Neurology Resident, PGY-4 March 07, 2021[id number] NoteHNO ID: [id number] Author: JULITO Lino Service: Care Management Author Type: Home Care Companion Type: Care Mgt Initial Assessment Filed: 03/06/2021 4:04 PM Note Text: CARE MANAGEMENT: ASSESSMENT AND DISCHARGE PLAN SERVICE DATE: March 06, 2021 SERVICE TIME: 4:00 PM PRIMARY CARE PHYSICIAN: Roxie Strickland NP ADMISSION STATUS: Inpatient Needs Prior to Discharge: None MEDICAL: [employer] Patient/Principal Biostatistician Stated Goals: To have reduction in symptoms;To return home to life as it was Health Insurance: [facility] Issues Impacting Discharge Plan: (seizure, headache, CP) Last Discharge Date: N/A Is this Within the Past 30 days? Last discharge within 30 days: No Advance Directive: Current Advance Directive: None Site Safety Manager Attempted to Assist with AD Completion: Yes Action: Patient Unwilling Health LiteracyHow often do you need to have someone help you when you read instructions, pamphlets, or other written material from your doctor or pharmacy? : 1 - Never How confident are you filling out medical forms by yourself?: 1 - Extremely If Patient scores > 3 on either question, the following interventions were put into place:: Patient did not score > 3 on either question. Baseline Mental Status Prior to this Illness what was the patient's Baseline Mental Status?: Alert AND Oriented;History of Mental Illness Prior to this illness, has anyone described the patient having any of the following behaviors?: Not Applicable Relationship of the informant to the patient:: Self Functional Status: Independent Does Patient Currently Receive Any Community Services or Home Care?: None Equipment Prior to Admission: None Has the Patient Been in a Alf Facility in the Past 30 days?: No SOCIAL: Living Arrangements: Home Lives With: Partner;Daughter;Son Financial Resources: Employed Primary Contact: Extended Emergency Contact Information Primary Emergency Contact: stormpachecoangelika [address]: [address] [place], [place] [address]refugio madera [address] Mobile Relation: Significant other Secondary Emergency Contact: ViniClaudy Relation: Other Supportive Patient Contact:: Yes Caregiver AssessmentCaregiver is ready, willing and able to meet the patient's needs as recommended by the inter-professional team:: No Caregiver needed Does the patient have an acute stroke diagnosis, or has the patient had a stroke during this admission?: No Patient's transition needs and plan for meeting these needs: self care Patient's perception of need for this admission: seizure Medication Adherance I am convinced of the importance of my prescription medication: 0 - Agree Completely I worry that my prescription medication will do more harm than good to me : 0 - Disagree Completely I feel financially burdened by my jzo-sl-olkcye expenses for my prescription medication:: 0 - Disagree Completely Risk Score: 0 Patient is categorized as: Low risk < 2 Are you interested in bedside delivery of your medications? No Is Patient Psychosocially Complex?: No ASSESSMENT AND PLAN: Medical Needs: Medical Needs: None Psychosocial Needs: Psychosocial Needs: Mental Health Diagnosis Mental Health Information: Coversion d/o, anxiety FREEDOM OF CHOICE EXPLAINED: [place] of Choice Given: No Reason Not Given: No placements necessary POTENTIAL TRANSITION PLANS Home Pt presents to ED s/p seizer, headache, CP, Hx diabetes (pt adamant she does not have DM), anxiety, epilepsy, conversion disorder. Independent of ADLS and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
== END 2023-04-29 09:53 | disposition home or self-care (01) ==
LOC: RAD 09:59
PROVIDERS: PCP Family Medicine; Visit Provider Podiatrist Foot & Ankle Surgery
DX: M25.572 Pain in left ankle and joints of left foot (principal); S82.832D Other fracture of upper and lower end of left fibula, subsequent encounter for closed fracture with routine healing; S92.415D Nondisplaced fracture of proximal phalanx of left great toe, subsequent encounter for fracture with routine healing
CPT/HCPCS: 73610; 73630

== ENCOUNTER 2023-05-07 09:51 | Outpatient (OUT) | payer OTHER, SELFPAY ==
--- NOTE | 2023-05-07 | XR_ITS ---
The [address] [address] Patient Name: TICO ENRIQUEZ MRN: [id number] date: 1990 Sex: F Assigned Patient Location: [facility] Current Patient Location: RAD Accession/Order Number: [id number] Exam Date: 05/07/2023 10:01 Report Date: 05/07/2023 11:05 At the request of: SHAKIR ANDERSON Procedure: XR foot LT min 3V PROCEDURE: XR foot LT min 3V COMPARISON: 04/29/2023 HISTORY: LEFT FOOT PAIN FINDINGS: BONES:Stable complex fracture diaphysis and head of the first proximal phalanx extending to the distal articular surface. No angulation or distraction. No dislocation. SOFT TISSUES:Negative. No visible soft tissue swelling. EFFUSION:None visible. OTHER: Negative. XR/XR foot LT min 3V IMPRESSION: Stable intra-articular fracture diaphysis and head of the first proximal phalanx Electronically authenticated by: JASS WELSH Date: 05/07/2023 11:05
--- NOTE | 2023-05-07 | XR_ITS ---
The [address] [address] Patient Name: TICO ENRIQUEZ MRN: [id number] date: 1990 Sex: F Assigned Patient Location: RAD Current Patient Location: RAD Accession/Order Number: [id number] Exam Date: 05/07/2023 10:01 Report Date: 05/07/2023 10:49 At the request of: SHAKIR ANDERSON Procedure: XR ankle LT min 3V EXAM: XR ankle LT min 3V HISTORY: LEFT ANKLE PAIN COMPARISON: Comparison made to left ankle radiographs dated 04/29/2023. TECHNIQUE: 3 views left ankle. FINDINGS: There is left lateral ankle soft tissue swelling. There is an acute minimally displaced fracture at the tip of the left fibula. The left talar dome, tibial plafond, ankle mortise are intact. XR/XR ankle LT min 3V IMPRESSION: 1. Acute minimally displaced fracture at the tip of the left fibula with overlying soft tissue swelling. Electronically authenticated by: CARLOS PAZ Date: 05/07/2023 10:49
--- OUTSIDE RECORDS SUMMARY | 2023-05-07 09:58 | XMS_ITS | CCD ---
Author Name Unknown Address [address] [place] [address] Organization [facility] Care Team Providers Care Data Management Analyst Name Role Phone MARIO GLASGOW Primary Care Physician [phone] Carol Ann Chacon Unavailable Unavailable Pee Mario Unavailable Vi Benites Unavailable Pee, DO Mario Morton Primary Care Provider DO Rell Garcia Attending Provider [phone] DO Arun Ervin Emergency Provider [phone] Pee, DO Mario Cullen. Attending Provider Mario Glasgow Admitting Unavailable Mario Glasgow Attending [...] Garcia Admitting Unavailable Rell Garcia Attending Unavailable PEE, DR MARIO Cullen Primary Care Unavailable MARKER [...] [azithromycin] Drug Allergy 04-10-20 22 Itching, Unknown, [employer] [facility] [employer] Other (4 sources) cefTRIAXone; Translations: [ceftriaxone] Drug Allergy Mean (qualifier value) [facility] (20 sources) Ciprofloxacin; Translations: [ciprofloxacin] Drug Allergy 04-10-20 22 Itching, Unknown, [employer] [facility] [employer] Other (9 sources) Dicyclomine; Translations: [dicyclomine] Drug Allergy 04-10-20 22 Agitation, Agitated [facility] (20 sources) Ketorolac; Translations: [ketorolac] Drug Allergy 04-10-20 22 Itching, Unknown, [employer] [facility] [employer] Other (20 sources) Metoclopramide; Translations: [metoclopramide] Drug Allergy 04-10-20 22 Itching, Unknown, Agitated [facility] [employer] Other (20 sources) Morphine; Translations: [morphine] Drug Allergy Hives, Hives-IV [facility] [employer] Other Comment on above: causes hives (20 sources) NITROFURANTOIN, MACROCRYSTALS / Nitrofurantoin, Monohydrate; Translations: [nitrofurantoin] Drug Allergy Itching, Unknown [facility] [employer] Other (20 sources) Penicillin; Translations: [penicillin] Drug Allergy Unknown (qualifier value) [facility] [employer] Other (4 sources) zolpidem; Translations: [zolpidem] Drug Allergy Agitation [facility] (20 sources) diphenhydrAMINE Drug Allergy IV Hives [facility] [employer] Other (20 sources) LORazepam Drug Allergy 04-10-20 22 aggressive, Extrapyramidal Symptoms [facility] (20 sources) Penicillin V Drug Allergy Unknown [facility] [employer] Other (10 sources) diphenhydrAMINE Drug Allergy IV Hives [facility] [employer] Other (20 sources) DULoxetine Drug Allergy worsen depression [facility] [employer] Other (6 sources) Nitrofurantoin; Translations: [nitrofurantoin] Drug Allergy 04-10-20 22 Hives [facility] (7 sources) Penicillins; Translations: [Penicillins] Allergy to substance 09-17-19 13 Unknown Reaction [facility] (1 source) Azithromycin Drug Allergy 05-02-19 [facility] (1 source) Ciprofloxacin Drug Allergy 05-02-19 [facility] (1 source) Dicyclomine Drug Allergy 05-02-19 [facility] (1 source) Ketorolac Drug Allergy 05-02-19 [facility] (1 source) LORazepam Drug Allergy 05-02-19 [facility] (1 source) Metoclopramide Drug Allergy 05-02-19 [facility] (1 source) Azithromycin Drug Allergy 09-17-19 13 [facility] (1 source) Ciprofloxacin Drug Allergy 09-17-19 13 [facility] (1 source) Dicyclomine Drug Allergy 07-20-19 15 [facility] (1 source) Iothalamate Drug Allergy 09-17-19 13 [facility] (1 source) Ketorolac Drug Allergy 03-11-20 13 [facility] (1 source) LORazepam Drug Allergy 09-10-19 16 [facility] (1 source) Nitrofurantoin Drug Allergy 09-17-19 13 [facility] (1 source) LORazepam; Translations: [Ativan] Drug Allergy [facility] Repository Medications Current Medications Medication Drug Class(es) Dates Sig (Normalized) Sig (Original) Acetaminophen / HYDROcodone (14 sources) Opioid Agonist Start: 05-16-2021 [place] 5/325 Tab Oral, q6hr, Refill(s) 0 Start [...] Active Start: 06-08-2021 take 1 tablet by [facility] every twelve hours Xanax 2 MG 1 tablet as needed Orally Twice a day for 30 days May, Active Start: 05-08-2021 take 1 tablet by [facility] every twelve hours Xanax 1 MG 1 tablet as needed Orally Twice a day for 30 days Apr, Active Start: 04-11-2021 take 1 tablet by [facility] every twelve hours Xanax 1 MG 1 tablet as needed Orally Twice a day for 30 days Mar, Active Start: 04-24-2017 take 1 tablet by [facility] twice daily as needed for anxiety Xanax 0.25 mg Tab 0.25 mg = 1 tab(s), Oral, BID, PRN as needed for anxiety, Refills(s) 0 Start Date: 04/24/17 Status: Ordered Start: 03-14-[address] [facility] twice daily Alprazolam (Xanax) 1 mg Tablet [...] 90 tab(s), Refills(s) 3, Bladder problems, Pharmacy: [facility]/pharmacy #[id number], 165, cm, 05/18/21 11:56:00 EST, [...] pain, # 12 tab(s), Refills(s) 0, Pharmacy: [facility]/pharmacy #[id number], 165, cm, 11/22/22 19:18:00 EDT, [...] procedure, # 2 tab(s), Refills(s) 0, Pharmacy: [facility]/pharmacy #[id number], 165, cm, 05/18/21 11:56:00 EST, Height/Length Dosing, 100, kg, 05/16/21 9:5... 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] Onset: 08-15-2022 Episodic Other [...] Range Facility Physician Referralon 023 Physician Referral [id number] [facility] Physician Referralon 023 Physician Referral [id number]:12 7 [facility] RAD - MISCon 12-27-2022 RAD - MISC [id number]#1.00CD:12 7 [facility] ED Note-Physicianon 11-27-19 ED Note-Physician [id number]#[id number]:12 7 [facility] ED Note-Physician Basic Information Time Seen: Gaby Turner PA-C 11/22/2022 20:47 Chief Complaint L flank pain worsening x 2 weeks. pt. seen at [facility] x 2 with negative workup. hx kidney stones. also c/o N/V. denies fevers. History of Present Illness This patient presents emergency department chief complaint of left flank pain. The patient states this has been going on for 2 weeks. She has been seen at [facility] twice but they could not determine an [...] Patient has not followed up with a insurance verification specialist in a long time. I discussed with [...] the patient (more content not included)... Normal [facility] Comment on above: Result Comment: Elec tronically [...] Locations R1: This test was performed at: [facility], [address] [place] [address], [phone] , [place], [facility] Comment on above: Performed By: #### 1 [id number], [id number], [id number] #### [facility] [address] [place] [address] Discharge Instructionson Discharge Instructions [id number]:1 27 Normal [facility] ED Clinical Summaryon 2022 ED Clinical Summary (Inserted Image. Jeniffer ble to display) [address] [address] ED Clinical Summary Person Information Name: SULLY ENRIQUEZ [facility] Age: 32 Years : 1990 Sex: Female Language: Kiswahili PCP: MARIO GLASGOW DO Marital Status: Visit [...] 11/23/2022 01:20:40 11/23/2022 01:20:40 11/23/2022 01:20:40 ADDRESS: [address] [place] [address] [id number] PHYS DOC NOTES: MEDICAL INFORMATION: Prescriptions Given: New Medications [id number], [address], [place] [id number], [phone] tramadol (traMADOL 50 mg Tab) 1 Tablets By Mouth every 6 hours as needed for pain. Refills: 0. Medications to Continue with No Changes Other Medications acetaminophen-hydrocodone ([place] 5/325 Tab) By Mouth every 6 hours. [...] Endometriosis; Laparoscopic Lysis of Abdominal Adhesions; Adhesions, Hrvg-yt-Srxj; Abdominal Pain, Adult, Efti-cb-Cepv Follow up: With: Address: When: MARIO GLASGOW [address] [place] [address] Business (1) In 3 days 11/26/2022 DIAGNOSIS: 1:Chronic left flank pain; 2:Abdominal pain, acute, left upper quadrant; Other chronic pain Normal [facility] ED Patient Education Noteon 11-23-2022 ED Patient [...] including vitamins, herbs, eye drops, creams, and liso-rwo-xmtzytm medicines. ? Any problems you or family [...] tells you to take them. ? Taking hhzl-soz-cbugktx medicines, vitamins, herbs, and supplements. General instructions [...] returns. Aft (more content not included)... Normal [facility] ED Patient Summaryon 023 ED Patient Summary (Inserted Image. Jeniffer ble to display) [address] [address] Patient Discharge Instructions Person Information Name: SULLY ENRIQUEZ Age: 32 Years Arrival Date: 11/22/2022 19:01:04 Discharge Diagnosis: 1:Chronic left flank pain; 2:Abdominal pain, acute, left upper quadrant; Other chronic pain Primary Care Physician: MARIO GLASGOW DO Provider Information Primary Provider: Sonam Montoya DO Advanced Research Environmental Scientist:None The exam and treatment you received in the Emergency Department were for an urgent problem and are not intended as complete care. It is important that you follow up with a doctor, nurse practitioner, or physician?s bankruptcy assistant for ongoing care. If your symptoms [...] Follow-up Instructions: With: Address: Rad: MARIO GLASGOW [facility] [address] [address] Business (1) In 3 days 11/26/2022 In the event that this physician does not participate in your insurance network, please consult with your insurance company to find a nearby participating provider. Patient Education Materials: Endometriosis; Laparoscopic Lysis of Abdominal Adhesions; Adhesions, Pyiz-le-Hsyr; Abdominal Pain, Adult, Uwub-wg-Cwwf A MESSAGE TO ALL PATIENTS REGARDING OPIOIDS PRESCRIPTION OPIOIDS: WHAT YOU NEED TO KNOW Prescription opioids can be used to help relieve sikllsyw-tj-fkepls pain and are often prescribed following a [...] struggling wit (more content not included)... Normal [facility] XR Abdomen 1 Viewon 11-24-19 XR Abdomen [...] mGy = na DAP = na Normal [facility] Auto Diffon 11-22-2022 Basophils/100 WBC (Bld) 0.6 % Normal 0.0-2.0 [facility] Comment on above: Order Comment: Order Added by Discern Expert. Performed By: #### 2 903106, 4750292, 2175671, 92599173, 2406944, 8714924 #### [facility] [address] [place] [address] Basophils/Leukocytes Auto (Bld) [Pure # fraction] 0.0 E9/L Normal 0.0-0.2 [facility] Comment on above: Order Comment: Order Added by Carson Expert. Performed By: #### 2 875735, 2981386, 2819763, 66335073, 9565041, 5838794 #### [facility] [address] [place] [address] Eosinophils/100 WBC (Bld) 1.5 % Normal 0.0-8.0 [facility] Comment on above: Order Comment: Order Added by Discern Expert. Performed By: #### 2 973042, 5132949, 8047253, 73906234, 1177621, 1720302 #### [facility] [address] [place] [address] Eosinophils/Leukocytes Auto (Bld) [Pure # fraction] 0.1 E9/L Normal 0.0-0.5 [facility] Comment on above: Order Comment: Order Added by Carson Expert. Performed By: #### 2 240837, 5937287, 9926113, 42790569, 8925701, 7999948 #### [facility] [address] [place] [address] Lymphocytes/100 WBC (Bld) 33.5 % Normal 14.0-50.0 [facility] Comment on above: Order Comment: Order Added by Carson Expert. Performed By: #### 2 809704, 0380137, 4848461, 37018355, 7307288, 3327506 #### [facility] [address] [place] [address] Lymphocytes/Leukocytes Auto (Bld) [Pure # fraction] 2.6 E9/L Normal 1.0-4.0 [facility] Comment on above: Order Comment: Order Added by Carson Expert. Performed By: #### 2 790512, 4698824, 3004031, 99014946, 1694315, 0410815 #### [facility] [address] [place] [address] Monocytes/100 WBC (Bld) 8.6 % Normal 4.0-14.0 [facility] Comment on above: Order Comment: Order Added by Discern Expert. Performed By: #### 2 433310, 0686143, 9375986, 60878800, 3047973, 6072953 #### [facility] [address] [place] [address] Monocytes/Leukocytes Auto (Bld) [Pure # fraction] 0.7 E9/L Normal 0.2-1.0 [facility] Comment on above: Order Comment: Order Added by Discern Expert. Performed By: #### 2 435638, 2184564, 0381741, 34659882, 8037684, 6967000 #### [facility] [address] [place] [address] Neutrophils/100 WBC (Bld) 55.8 % Normal 36.0-75.0 [facility] Comment on above: Order Comment: Order Added by Discern Expert. Performed By: #### 2 580631, 1846601, 4958368, 04800510, 3904705, 7834651 #### [facility] [address] [place] [address] Neutrophils/Leukocytes Auto (Bld) [Pure # fraction] 4.3 E9/L Normal 2.0-7.5 [facility] Comment on above: Order Comment: Order Added by Discern Expert. Performed By: #### 2 963296, 7188868, 9740368, 20481135, 4826703, 6939782 #### [facility] [address] [place] [address] BMPon 11-22-2022 Creatinine [Mass/Vol] 1.0 mg/dL Normal 0.5-1.3 [facility] Comment on above: Performed By: #### 2 176718, 3083281, 1628103, 57194249, 5222860, 4643815 #### [facility] [address] [place] [address] Urea nitrogen [Mass/Vol] 16 mg/dL Normal 5-21 [facility] Comment on above: Performed By: #### 2 358752, 6272502, 8394708, 29125063, 9989904, 4172204 #### [facility] [address] [place] [address] Urea nitrogen/Creatinine [Mass ratio] 16 No Units Normal 10-20 [facility] Comment on above: Performed By: #### 2 021046, 6301549, 3692933, 69321520, 6467831, 6773005 #### [facility] [address] [place] [address] Anion gap [Moles/Vol] 15 mmol/L Normal 6-16 [facility] Comment on above: Performed By: #### 2 577423, 9026932, 3787207, 94544448, 2639602, 2308061 #### [facility] [address] [place] [address] Calcium [Mass/Vol] 9.6 mg/dL Normal 8.9-11.1 [facility] Comment on above: Performed By: #### 2 326940, 4231844, 9876527, 37433883, 1877572, 8244327 #### [facility] [address] [place] [address] Chloride [Moles/Vol] 107 mmol/L Normal 101-111 [facility] Comment on above: Performed By: #### 2 632405, 9192216, 1503213, 80698041, 8421076, 5705541 #### [facility] [address] [place] [address] CO2 [Moles/Vol] 19 mmol/L Low 21-31 [facility] Comment on above: Performed By: #### 2 254124, 5006364, 1632861, 89805983, 0976857, 2757647 #### [facility] [address] [place] [address] Glucose [Mass/Vol] 97 mg/dL Normal 55-199 [facility] Comment on above: Result Comment: If t his glucose result represents a fasting glucose, interpretation should refer to the following reference range: 55-99 mg/dL Performed By: #### 2 419560, 7553522, 3804382, 19246349, 7046752, 0304315 #### [facility] [address] [place] [address] Potassium [Moles/Vol] 3.9 mmol/L Normal 3.5-5.3 [facility] Comment on above: Performed By: #### 2 578027, 4328626, 5171522, 46232643, 5712280, 0379703 #### [facility] [address] [place] [address] Sodium [Moles/Vol] 137 mmol/L Normal 135-145 [facility] Comment on above: Performed By: #### 2 375976, 4562035, 9491311, 92399786, 6378747, 3849698 #### [facility] [address] [place] [address] CBC w/ Auto Diffon Erythrocyte distribution width (RBC) [Ratio] 13.0 % Normal 10.9-14.2 [facility] Comment on above: Performed By: #### 2 633891, 8581334, 5155349, 14130904, 1063608, 0250082 #### [facility] [address] [place] [address] Hematocrit (Bld) [Volume fraction] 42.7 % Normal 34.0-46.0 [facility] Comment on above: Performed By: #### 2 610081, 5690657, 3916302, 69258995, 1009752, 7377837 #### [facility] [address] [place] [address] Hemoglobin (Bld) [Mass/Vol] 14.6 g/dL Normal 12.0-16.0 [facility] Comment on above: Performed By: #### 2 904829, 3390323, 3475626, 94973517, 0646780, 3039635 #### [facility] [address] [place] [address] MCH (RBC) [Entitic mass] 31.7 pg Normal 27.0-34.0 [facility] Comment on above: Performed By: #### 2 235093, 8934054, 5085540, 56293930, 7010520, 3567249 #### [facility] [address] [place] [address] MCHC (RBC) [Mass/Vol] 34.1 g/dL Normal 31.4-36.0 [facility] Comment on above: Performed By: #### 2 678781, 8767691, 1686312, 67745625, 5903041, 1718103 #### [facility] [address] [place] [address] MCV (RBC) [Entitic vol] 93.1 fL Normal 80.0-100.0 F [facility] Comment on above: Performed By: #### 2 552114, 1937066, 2415964, 44396469, 3537214, 4522246 #### [facility] [address] [place], [place] [address] Platelet mean volume (Bld) [Entitic vol] 8.8 fL Normal 6.4-10.8 [facility] Comment on above: Performed By: #### 2 354337, 8163947, 3158246, 20384937, 0301664, 2979814 #### [facility] [address] [place] [address] Platelets (Bld) [#/Vol] 199.0 E9/L Normal 150.0-500.0 [facility] Comment on above: Performed By: #### 2 448188, 7220863, 2421653, 17223010, 9066153, 8824332 #### [facility] [address] [place] [address] RBC (Bld) [#/Vol] 4.6 E12/L Normal 4.3-5.9 [facility] Comment on above: Performed By: #### 2 146791, 3291238, 6970819, 89258196, 8203944, 9802189 #### [facility] [address] [place] [address] WBC corrected for nucl RBC Auto (Bld) [#/Vol] 7.7 E9/L Normal 4.0-11.0 [facility] Comment on above: Performed By: #### 2 926189, 7799913, 1037493, 79048804, 8997321, 3074303 #### [facility] [address] [place] [address] CHEMISTRYOrdered By: SYSTEM SYSTEM on 11-22-2022 Albumin [...] Remisol Consent for Treatmenton Consent for Treatment [id number]:12 7 Normal [facility] HEMATOLOGYOrdered By: SYSTEM SYSTEM on 11-22-2022 Basophils/100 [...] Bilirubin.indirect [Mass or moles/Vol] UTC Abnormal 0.1-0.9 [facility] Comment on above: Result Comment: Resu lt verified by Discern Rule. Performed result UTC (Unable to Calculate) was sent as an Alpha code due the inability to calculate a valid numeric value. Performed By: #### 2 991217, 4948960, 2175036, 06920400, 4963240, 7438648 #### [facility] [address] [place] [address] Albumin [Mass/Vol] 4.5 g/dL Normal 3.3-5.0 [facility] Comment on above: Performed By: #### 2 014196, 2378293, 0498104, 90551649, 6000438, 3369499 #### [facility] [address] [place] [address] Albumin/Globulin (S) [Mass conc ratio] 1.3 Normal 1.1-2.2 [facility] Comment on above: Performed By: #### 2 940508, 8830723, 1066640, 69058789, 2219671, 4482798 #### [facility] [address] [place] [address] 15[address] ALP [Catalytic activity/Vol] 42 Int._Unit/L Normal 21-98 [facility] Comment on above: Performed By: #### 2 511661, 0386637, 5749197, 13086404, 8507942, 6696310 #### [facility] [address] [place] [address] 28676 ALT No additional P-5'-P [Catalytic activity/Vol] 36 Int._Unit/L Normal 6-46 [facility] Comment on above: Performed By: #### 2 786541, 6226450, 8129774, 95190854, 0043674, 9134530 #### [facility] [address] [place] [address] 36105 AST [Catalytic activity/Vol] 26 Int._Unit/L Normal 5-43 [facility] Comment on above: Performed By: #### 2 326786, 3796604, 1421315, 99991291, 9058573, 3054358 #### [facility] [address] [place] [address] Bilirubin [Mass/Vol] 0.6 mg/dL Normal 0.0-1.1 [facility] Comment on above: Performed By: #### 2 162308, 6966253, 2994012, 48265906, 5569688, 9251652 #### [facility] [address] [place] [address] Globulin (S) [Mass/Vol] 3.4 g/dL Normal 1.4-4.0 [facility] Comment on above: Performed By: #### 2 453593, 2044987, 9220146, 16431910, 0642532, 3405256 #### [facility] [address] [place] [address] Protein [Mass/Vol] 7.9 g/dL High 6.0-7.8 [facility] Comment on above: Performed By: #### 2 842405, 1886067, 1600649, 28574713, 4649697, 9136125 #### [facility] [address] [place] [address] Bilirubin.direct [Mass/Vol] mg/dL Normal 0.1-0.4 [facility] Comment on above: Performed By: #### 2 436142, 4097516, 4093984, 76041173, 7134911, 9013080 #### [facility] [address] [place] [address] Laboratory - Microbiology an d Antimicrobial susceptibilityOrdered By: Sherice Espinosa on 11-22-2022 Bacteria identified Cx Nom (U) 500 cfu/ml Mixed skin contaminants [facility] Lipase Levelon 11-22-2022 Lipase [Catalytic activity/Vol] 28 U/L Normal 13-58 [facility] Comment on above: Performed By: #### 2 032753, 0342394, 5584202, 64906494, 6368196, 9092804 #### [facility] [address] [place] [address] SEROLOGYOrdered By: Mario orellana on 11-22-2022 HCG.beta subunit (U) [Moles/Vol] Negative Normal [facility] Sero U BetaHcg Qualon 11-22-2022 HCG.beta subunit (U) [Moles/Vol] Negative Normal [facility] Comment on above: Performed By: #### 1 9106625, 2151080, 82775243 #### [facility] [address] [place] [address] UA With Cult Reflexon 2022 Bacteria LM Ql (Urine sed) 2+ /HPF Abnormal Trace [facility] Comment on above: Performed By: #### 1 5872168, 4009596, 00632986 #### [facility] [address] [place] [address] Bilirubin Ql (U) Negative Normal Negative [facility] Comment on above: Performed By: #### 1 5230741, 5883318, 56277670 #### [facility] [address] [place] [address] Clarity (U) CLEAR Normal Clear [facility] Comment on above: Performed By: #### 1 [id number], [id number], [id number] #### [facility] [address] [place] [address] Color (U) YELLOW Normal Yellow [facility] Comment on above: Performed By: #### 1 [id number], [id number], [id number] #### [facility] [address] [place] [address] Epithelial cells.squamous LM.HPF (Urine sed) [#/Area] 5-8 Normal 0-2 [facility] Comment on above: Performed By: #### 1 [id number], [id number], [id number] #### [facility] [address] [place] [address] Glucose Test strip (U) [Mass/Vol] Negative Normal Negative [facility] Comment on above: Performed By: #### 1 [id number], 6304634, [id number] #### [facility] [address] [place] [address] Hemoglobin Ql (U) Negative Normal Negative [facility] Comment on above: Performed By: #### 1 [id number], 1653630, [id number] #### [facility] [address] [place] [address] Ketones (U) [Mass/Vol] Negative Normal Negative [facility] Comment on above: Performed By: #### 1 [id number], [id number], [id number] #### [facility] [address] [place] [address] [place].plasma/[place]. RBC (Bld) [Mass ratio] 0-3 Normal 0-3 [facility] Comment on above: Performed By: #### 1 [id number], 3689276, [id number] #### [facility] [address] [place] [address] Mucus Ql (Urine sed) TRACE Normal [facility] Comment on above: Performed By: #### 1 6375101, 6963840, [id number] #### [facility] [address] [place] [address] Nitrite Ql (U) Negative Normal Negative [facility] Comment on above: Performed By: #### 1 8373729, 1962888, [id number] #### [facility] [address] [place] [address] pH (U) 6.0 [pH] Invalid Interpretation Code 5.0-9.0 [facility] Comment on above: Performed By: #### 1 [id number], 5555080, [id number] #### [facility] [address] [place] [address] Protein (U) [Mass/Vol] Negative Normal Negative [facility] Comment on above: Performed By: #### 1 [id number], 4702095, [id number] #### [facility] [address] [place] [address] Specific gravity (U) [Rel density] 1.025 Invalid Interpretation Code 1.005-1.030 [facility] Comment on above: Performed By: #### 1 9259754, 9563342, [id number] #### [facility] [address] [place] [address] Type of Urine collection method Clean Catch Normal [facility] Comment on above: Performed By: #### 1 5408553, 6685969, [id number] #### [facility] [address] [place] [address] Urobilinogen Qn (U) 0.2 {Elba'U}/dL Normal 0.0-1.0 [facility] Comment on above: Performed By: #### 1 2645058, 3721778, [id number] #### [facility] [address] [place] [address] WBC Auto Ql (U) Negative Normal Negative [facility] Comment on above: Performed By: #### 1 4739859, 9623066, [id number] #### [facility] [address] [place] [address] WBC LM.HPF (Urine sed) [#/Area] 0-5 Normal 0-5 [facility] Comment on above: Performed By: #### 1 4163541, 0177230, 34085510 #### [facility] [address] [place] [address] URINALYSISOrdered By: Mario howell on 11-22-2022 Bacteria [...] PM) Normal Negative [facility] UA Auto SS [place].plasma/[place]. RBC (Bld) [Mass ratio] 0-3 /HPF Normal [...] Desc Clean Catch (11/22/22 7:19 PM) Normal [facility] UA Auto SS Urobilinogen Qn (U) 0.7599666 {Elba'U}/dL Normal 0.0 - 1.0 EU/dL FT UA Auto SS WBC Auto Ql (U) Negative (11/22/22 7:19 PM) Normal Negative [facility] UA Auto SS WBC LM.HPF (Urine sed) [#/Area] 0-5 /HPF Normal 0-5/HPF [facility] UA Auto SS eGFRon 11-22-2022 GFR/1.73 sq M.predicted among non-blacks MDRD (S/P/Bld) [Vol rate/Area] 76 mL/min/1.73 m2 Normal >=59 [facility] Comment on above: Order Comment: Order added by Discern Expert. Result Comment: Sports Management Intern fahad kidney disease could be indicated at eGFR's of less than 60 mL/min/1.73m2. Kidney failure is indicated at less than 15 mL/min/1.73m2. Performed By: #### 2 [id number], 9102172, 3380695, [id number], 5507791, [id number] #### [facility] [address] [place] [address] HEAD WO CONon 08-14-2022 CT HEAD [...] by: ROC ARNOLD Date: 2022-08-13 22:12 Normal [facility] CBC AUTO DIFFon 08-13-2022 BASO # 0.0 103/ul Normal 0.0-0.1 [facility] Comment on above: Performed By: #### C BC ####[facility] [address] [place] [address]Dr. Douglas Tucker Basophils/100 WBC (Bld) 0.3 % Normal 0.2-2.[address] [facility] Comment on above: Performed By: #### C BC ####[facility] [address] [place] [address]DrHernandez Tucker EO # 0.0 103/ul Normal 0.0-0.7 [facility] Comment on above: Performed By: #### C BC ####[facility] [address] [place], [place] [address]Dr. Douglas Tucker Eosinophils/100 WBC (Bld) 0.1 % Critically low 0.9-7.0 [facility] Comment on above: Performed By: #### C BC ####[facility] [address] [place], [place] [address]DrHernandez Tucker Erythrocyte distribution width (RBC) [Ratio] 12.3 % Normal 11.0-15.0 [facility] Comment on above: Performed By: #### C BC ####[facility] [address] [place], [place] [address]DrHernandez Tucker Hematocrit (Bld) [Volume fraction] 41.6 % Normal 36.0-48.0 [facility] Comment on above: Performed By: #### C BC ####[facility] [address] [place] [address]Dr. Douglas Tucker Hemoglobin (Bld) [Mass/Vol] 13.6 g/dL Normal 12.0-16.0 [facility] Comment on above: Performed By: #### C BC ####[facility] [address] [place] [address]Dr. Umuana Garrett IG # 0.05 10e3/ul Critically high 0.00-0.03 [facility] Comment on above: Performed By: #### C BC ####[facility] [address] [place], [place] [address]Dr. Douglas Tucker IG % 0.3 % Normal 0.0-0.5 [facility] Comment on above: Performed By: #### C BC ####[facility] [address] [place], [place] [address]Dr. Douglas Tucker LYMPH # 3.0 103/ul Normal 1.2-3.8 [facility] Comment on above: Performed By: #### C BC ####[facility] [address] [place], [place] [address]Dr. Umuana Tucker Lymphocytes/100 WBC (Bld) 20.9 % Normal 20.5-60.0 [facility] Comment on above: Performed By: #### C BC ####[facility] [address] [place] [address]Dr. Douglas Tucker MANUAL DIFF REQ NO Normal [facility] Comment on above: Performed By: #### C BC ####[facility] [address] [place] [address]Dr. Douglas Tucker MCH (RBC) [Entitic mass] 31.7 pg Normal 26.7-34.0 [facility] Comment on above: Performed By: #### C BC ####[facility] [address] [place] [address]Dr. Douglas Tucker MCHC (RBC) [Mass/Vol] 32.7 g/dL Normal 29.9-35.2 [facility] Comment on above: Performed By: #### C BC ####[facility] [address] [place] [id number] Douglas Tucker MCV (RBC) [Entitic vol] 97.0 fL Normal 81.0-99.[address] [facility] Comment on above: Performed By: #### C BC ####[facility] [address] [place] [id number] Douglas Garrett MONO # 1.0 103/ul Critically high 0.3-0.8 [facility] Comment on above: Performed By: #### C BC ####[facility] [address] [place] [address]DrHernandez Tcuker Monocytes/100 WBC (Bld) 7.2 % Normal 1.7-12.[address] [facility] Comment on above: Performed By: #### C BC ####[facility] [address] [place], [place] [address]DrHernandez Douglas Tucker NEUT # 10.2 103/ul Critically high 1.4-6.5 [facility] Comment on above: Performed By: #### C BC ####[facility] [address] [place], [place] [address]DrHernandez Umuana Tucker Neutrophils/100 WBC (Bld) 71.2 % Normal 43.0-75.0 [facility] Comment on above: Performed By: #### C BC ####[facility] [address] [place], [place] [address]DrHernandez Tucker Platelet mean volume (Bld) [Entitic vol] 10.6 fL Normal 9.5-13.5 [facility] Comment on above: Performed By: #### C BC ####[facility] [address] [place] [id number] Tucker PLT 229 103/ul Normal 150-450 [facility] Comment on above: Performed By: #### C BC ####[facility] [address] [place] [address]DrHernandez Tucker RBC 4.29 106/ul Normal 4.20-5.40 [facility] Comment on above: Performed By: #### C BC ####[facility] [address] [place] [address]Dr. Douglas Tucker WBC 14.4 103/ul Critically high 4.0-11.0 [facility] Comment on above: Performed By: #### C BC ####[facility] [address] [place] [id number]. Douglas Tucker PROF CHEM 8 (BAS METB)on Anion gap [Moles/Vol] 14.6 mmol/L Normal Th [facility] Comment on above: Performed By: #### T SH, BMP #### [facility] [address] [place] [address] [address] Douglas Tucker Calcium [Mass/Vol] 9.0 mg/dL Normal 8.5-10.1 [facility] Comment on above: Performed By: #### T ZAIDA, BMP #### [facility] [address] [place] [address] [address] Douglas Tucker Chloride [Moles/Vol] 107 mmol/L Normal 98-107 [facility] Comment on above: Performed By: #### T SH, BMP #### [facility] [address] [place] [address] [address] Douglas Tucker CO2 [Moles/Vol] 23.2 mmol/L Normal 21.0-32.0 [facility] Comment on above: Performed By: #### T SH, BMP #### [facility] [address] [place] [address] [address] Douglas Tucker Creatinine [Mass/Vol] 0.88 mg/dL Normal 0.55-1.02 [facility] Comment on above: Performed By: #### T SH, BMP #### [facility] [address] [place] [address] Dr. Douglas Tucker EGFR-AF NAURUAN >60 Normal >=60 [facility] Comment on above: Performed By: #### T SH, BMP #### [facility] [address] [place] [address] [address] Douglas Tucker EGFR-NON AF NAURUAN >60 Normal >=60 [facility] Comment on above: Performed By: #### T SH, BMP #### [facility] [address] [place] [address] [address] Douglas Tucker Glucose [Mass/Vol] 100 mg/dL Normal 74-106 [facility] Comment on above: Performed By: #### T SH, BMP #### [facility] [address] [place] [address] Dr. Douglas Tucker Potassium [Moles/Vol] 3.8 mmol/L Normal 3.5-5.1 [facility] Comment on above: Performed By: #### T SH, BMP #### [facility] [address] [place] [address] Dr. Douglas Tucker Sodium [Moles/Vol] 141 mmol/L Normal 136-145 [facility] Comment on above: Performed By: #### T SH, BMP #### [facility] [address] [place] [address] Dr. Douglas Tucker Urea nitrogen [Mass/Vol] 10.0 mg/dL Normal 7.0-18.0 [facility] Comment on above: Performed By: #### T SH, BMP #### [facility] [address] [place] [address] Dr. Douglas Tucker Urea nitrogen/Creatinine [Mass ratio] 11.4 mg/mg Normal [facility] Comment on above: Performed By: #### T SH, BMP #### [facility] [address] [place] [address] Dr. Douglas Tucker TSHon 08-13-2022 TSH 0.730 uIU/mL Normal 0.358-3.740 [facility] Comment on above: Performed By: #### T ZAIDA, BMP #### [facility] [address] [place] [address] Dr. Douglas Tucker Automated erythrocytes count in urine sediment (number/area)Ordered By: Mario Glasgow on 06-14-2022 RBC Auto (Urine sed) [#/Area] None seen [HPF] 0-4 [facility] Automated leukocytes count i n urine sediment (number/area)Ordered By: Mario Glasgow on 06-14-2022 WBC Auto (Urine sed) [#/Area] 20-49 [HPF] 0-4 [facility] Bilirubin Test strip Ql (U)O rdered By: Mario Glagsow on 06-14-2022 Bilirubin Ql (U) Negative Negative [facility] Color Auto (U)Ordered By: Pee on 06-14-2022 Color (U) Yellow Yellow [facility] Dipstick and Microscopicon 0 06-14-2022 Appearance (U) Cloudy Critically abnormal Clear [facility] Comment on above: Order Comment: Reaso n for Exam Urinary frequency Name Collection Type:: Voided Performed By: #### P T, CBC, CMP, PTT #### [facility] [address] [place] [address] [place] Bacteria,Urine 2+ High None Seen [facility] Comment on above: Order Comment: Reaso n for Exam Urinary frequency Name Collection Type:: Voided Performed By: #### P T, CBC, CMP, PTT #### [facility] [address] [place] [id number] [place] Bilirubin,Urine Negative Normal Negative [facility] Comment on above: Order Comment: Reaso n for Exam Urinary frequency Name Collection Type:: Voided Performed By: #### P T, CBC, CMP, PTT #### [facility] [address] [place] [address] [place] Color (U) Yellow Normal Yellow [facility] Comment on above: Order Comment: Reaso n for Exam Urinary frequency Name Collection Type:: Voided Performed By: #### P T, CBC, CMP, PTT #### [facility] [address] [place] [address] [place] Glucose Ql (U) Normal Normal Normal [facility] Comment on above: Order Comment: Reaso n for Exam Urinary frequency Name Collection Type:: Voided Performed By: #### P T, CBC, CMP, PTT #### [facility] [address] [place] [address] [place] Hyaline Casts,Urine 0-8 Normal 0-8 [facility] Comment on above: Order Comment: Reaso n for Exam Urinary frequency Name Collection Type:: Voided Result Comment: PERF ORMED BY: [place] [address] PATHOLOGIST CLOTH DOUBLING MACHINE OPERATOR LEV HERNÁNDEZ M.D. Performed By: #### P T, CBC, CMP, PTT #### [facility] [address] [place] [address] Ketones Ql (U) Negative Normal Negative [facility] Comment on above: Order Comment: Reaso n for Exam Urinary frequency Name Collection Type:: Voided Performed By: #### P T, CBC, CMP, PTT #### [facility] [address] [place] [address] Leukocyte esterase Test strip Ql (U) 3+ High Negative [facility] Comment on above: Order Comment: Reaso n for Exam Urinary frequency Name Collection Type:: Voided Performed By: #### P T, CBC, CMP, PTT #### [facility] [address] [place] [address] [place] Nitrite,Urine Negative Normal Negative [facility] Comment on above: Order Comment: Reaso n for Exam Urinary frequency Name Collection Type:: Voided Performed By: #### P T, CBC, CMP, PTT #### [facility] [address] [place] [address] [place] Occult Blood,Urine Negative Normal Negative [facility] Comment on above: Order Comment: Reaso n for Exam Urinary frequency Name Collection Type:: Voided Result Comment: PERF ORMED BY: [place] [address] PATHOLOGIST CLOTH DOUBLING MACHINE OPERATOR LEV HERNÁNDEZ M.D. Performed By: #### P T, CBC, CMP, PTT #### [facility] [address] [place], [place] [id number] [place] pH (U) 5.5 [pH] Normal 5.0-9.0 [facility] Comment on above: Order Comment: Reaso n for Exam Urinary frequency Name Collection Type:: Voided Performed By: #### P T, CBC, CMP, PTT #### [facility] [address] [place] [address] [place] Protein,Urine Negative Normal Negative [facility] Comment on above: Order Comment: Reaso n for Exam Urinary frequency Name Collection Type:: Voided Performed By: #### P T, CBC, CMP, PTT #### [facility] [address] [place] [address] RBC,Urine None Seen Normal 0-4 [facility] Comment on above: Order Comment: Reaso n for Exam Urinary frequency Name Collection Type:: Voided Performed By: #### P T, CBC, CMP, PTT #### [facility] [address] [place] [address] Specificy [place],Urine 1.013 Normal 1.001-1.030 [facility] Comment on above: Order Comment: Reaso n for Exam Urinary frequency Name Collection Type:: Voided Performed By: #### P T, CBC, CMP, PTT #### [facility] [address] [place] [address] Squamous Epithelial Cell,Urine 5-9 High 0-2 [facility] Comment on above: Order Comment: Reaso n for Exam Urinary frequency Name Collection Type:: Voided Performed By: #### P T, CBC, CMP, PTT #### [facility] [address] [place] [address] Urobilinogen,Urine Normal Normal Normal [facility] Comment on above: Order Comment: Reaso n for Exam Urinary frequency Name Collection Type:: Voided Performed By: #### P T, CBC, CMP, PTT #### [facility] [address] [place] [address] WBC,Urine 20-49 High 0-4 [facility] Comment on above: Order Comment: Reaso n for Exam Urinary frequency Name Collection Type:: Voided Performed By: #### P T, CBC, CMP, PTT #### [facility] [address] [place] [address] Ketones Auto test strip (U) [Mass/Vol]Ordered By: Mario Glasgow on 06-14-2022 Ketones (U) [Mass/Vol] Negative Negative [facility] - UrinalysisOrder ed By: Mario Glasgow on 06-14-2022 Hyaline casts LM Ql (Urine sed) 0-8 [LPF] 0-8 [facility] Nitrite Test strip Ql (U)Ord ered By: Mario Glasgow on 06-14-2022 Nitrite Ql (U) Negative Negative [facility] Protein Auto test strip (U) [Mass/Vol]Ordered By: Mario Glasgow on 06-14-2022 Protein (U) [Mass/Vol] Negative [facility] Specific gravity Auto test s trip (U) [Rel density]Ordered By: Mario Glasgow on 06-14-2022 Specific gravity (U) [Rel density] 1.013 1.001-1.030 [facility] Squamous epithelial cells de tection in urine sediment by light microscopyOrdered By: Mario Glasgow on 06-14-2022 Epithelial cells.squamous LM Ql (Urine sed) 5-9 [HPF] 0-2 [facility] Urine Cultureon 06-14-2022 Bacteria identified Cx Nom (U) Reason for Exam Urinary frequency Urine ORGANISM: Strep. agalactiae Grp B (O:B) Jay Count <10,000 PERFORMED BY: [place] [address] PATHOLOGIST CLOTH DOUBLING MACHINE OPERATOR LEV HERNÁNDEZ M.D. [facility] Comment on above: Performed By: #### P T, CBC, CMP, PTT #### [address] Urine bacteria detection by automated methodOrdered By: Mario Glasgow on 06-14-2022 Bacteria Auto Ql (U) 2+ None Seen [facility] Urine clarity by refractomet ry automatedOrdered By: Mario Glasgow on 06-14-2022 Clarity Refractometry automated (U) Cloudy Clear [facility] Urine culture routineOrdered By: Mario Glasgow on 06-14-2022 Bacteria identified Cx Nom (U) Strep. agalactiae Grp B [facility] Urine glucose measurement by automated test strip (mass/volume)Ordered By: Mario Glasgow on 06-14-2022 Glucose Auto test strip (U) [Mass/Vol] Normal mg/dL Normal [facility] Urine hemoglobin detection b y automated test stripOrdered By: Mariosimi Glasgow on 06-14-2022 Hemoglobin Auto test strip Ql (U) Negative Negative [facility] Urine leukocyte esterase det ection by automated test stripOrdered By: Mario Glasgow on 06-14-2022 Leukocyte esterase Auto test strip Ql (U) 3+ Negative [facility] Urobilinogen Auto test strip (U) [Mass/Vol]Ordered By: Mario Glasgow on 06-14-2022 Urobilinogen (U) [Mass/Vol] Normal mg/dL Normal [facility] pH Auto test strip (U)Ordere d By: Mariosimi Glasgow on 06-14-2022 pH (U) 5.5 [pH] 5.0-9.0 [facility] HCG ( test) IA.rapi d Ql (U)Ordered By: Figueroa Galindo on 05-02-2022 HCG ( test) Ql (U) Negative [facility] HCG,Urineon 05-02-2022 Beta HCG ( test) Ql (U) Negative Normal [facility] Comment on above: Result Comment: PERF ORMED BY: [place] [address] PATHOLOGIST CLOTH DOUBLING MACHINE OPERATOR LVE HERNÁNDEZ M.D. Performed By: #### P T, CBC, CMP, PTT #### [address] [place] 05-02-2022 L ----- Specimen: [id number] Received: 05/02/22 Status: ALEJANDRA Marvin Num: [id number] Spec Type: Surgical Subm Dr: Rell Garcia, Tissues: A Uterus w/ or w/o tubes ovaries except neoplastic or prolap (UTERUS/CERVIX) Procedures: HE/4, Gross/Micro L5 Age/ Patient Sex Location Account Attending Physician Sully Enriquez 32/F [place] [id number] Rell Garcia DO SPEC NUM: [id number] RECD: 05/02/22 STATUS: ALEJANDRA WONG NUM: [id number] MEGAN: 05/02/[address] [facility] [address]: Rell Garcia DO ENTERED: 05/02/22 [facility] DR: RUSS TYPE: Surgical DEPT: S ORDERED: [...] in thickness. No myometrial lesions are identified. Center Director sections are submitted in 4 cassettes as follows: A1 - Anterior cervix A2 - Posterior cervix A3 - Anterior endomyometrium A4 - Posterior endomyometrium Specimen: [id number] Received: 05/02/22 Status: ALEJANDRA Wong Num: [id number] Spec Type: Surgical Subm Dr: Rell Garcia,DO Tissues: A Uterus w/ or w/o tubes ovaries except neoplastic or prolap (UTERUS/CERVIX) Procedures: HE/4, Gross/Micro L5 Patient: Sully Enriquez [id number] (Continued) Specimen: [id number] Received: 05/02/22 (Continued) Signed (signature on file) Tristan Vázquez MD 05/03/22 1036 Specimen: [id number] Received: 05/02/22 Status: ALEJANDRA Wong Num: [id number] Spec Type: Surgical Subm Dr: Rell Garcia,DO Tissues: A Uterus w/ or w/o tubes ovaries except neoplastic or prolap (UTERUS/CERVIX) Procedures: HE/Sudeep, Gross/Micro L5 Patient: Sully Enriquez [id number] (Continued) Specimen: [id number] Received: 05/02/22 (Continued) Microscopic Description Four glass slides with H E stained material have been examined. The microscopic findings support the above pathologic diagnosis. CPT Codes 14384 Specimen: [id number] Received: 05/02/22 Status: ALEJANDRA Wong Num: [id number] Spec Type: Surgical Subm Dr: Rell Garcia DO Tissues: A Uterus w/ or w/o tubes ovaries except neoplastic or prolap (UTERUS/CERVIX) Procedures: HE/Sudeep, Gross/Micro L5 Patient: Sully Enriquez [id number] (Continued) Signed (signature on file) Tristan Vázquez MD 05/03/22 1036 Normal [facility] Type and Screenon 05-02-2022 ABO and Rh group Nom (Bld) Blood group B Rh(D) positive Normal [facility] Comment on above: Result Comment: PERF ORMED BY: [facility] [place] [address] PATHOLOGIST CLOTH DOUBLING MACHINE OPERATOR LEV HERNÁNDEZ M.D. CULTURE URINEon 04-25-2022 CULTURE URINE Culture Observations : MODERATE GROWTH OF MIXED GENITAL CRICKET. NO POTENTIAL PATHOGENS SEEN. Normal [facility] Comment on above: Performed By: #### U RCX ####[facility] [address] [place] [address]Dr. Douglas Tucker ER URINE PROFILEon 3 Bilirubin Ql (U) Negative Normal NEGATIVE [facility] Comment on above: Performed By: #### P REGU UMICRO, ERUR #### [facility] [address] [address] [address] Douglas Tucker Clarity (U) SL CLOUDY Abnormal CLEAR [facility] Comment on above: Performed By: #### P REGU UMICRO, ERUR #### [facility] [address] [address] [address] Douglas Tucker Color (U) YELLOW Normal YELLOW [facility] Comment on above: Performed By: #### P REGUCHERYLICRO, ERUR #### [facility] [address] [address] [address] Douglas GIRON A micrscopic examina tion will be performed if indicated. Normal [facility] Comment on above: Performed By: #### P REGUCHERYLICRO, ERUR #### [facility] [address] [address] [address] Douglas Tucker Glucose Ql (U) Negative Normal NEGATIVE [facility] Comment on above: Performed By: #### P REGU UMICRO, ERUR #### [facility] [address] [address] [address] Douglas Tucker Hemoglobin Ql (U) SMALL Abnormal NEGATIVE [facility] Comment on above: Performed By: #### P REGUCHERYLICRO, ERUR #### [facility] [address] [address] [address] Douglas Tucker Ketones Ql (U) Negative Normal NEGATIVE [facility] Comment on above: Performed By: #### P REGUMONALISARO, ERUR #### [facility] [address] [place] [address] Dr. Douglas Tucker LEUKOCYTES Negative Normal NEGATIVE [facility] Comment on above: Performed By: #### BLAINE MALAVE, NIRALIR #### [facility] [address] [address] [address] Douglas Tucker Nitrite Ql (U) Negative Normal NEGATIVE [facility] Comment on above: Performed By: #### BLAINE MALAVE, ERUR #### [facility] [address] [address] [address] Douglas Tucker pH (U) 6.0 [pH] Normal 5-9 [facility] Comment on above: Performed By: #### BLAINE MALAVE, NIRALIR #### [facility] [address] [place] [address] Dr. Douglas Tucker SPEC GRAVITY >=1.030 Abnormal 1.005-<=1.0 25 [facility] Comment on above: Performed By: #### BLAINE MALAVE, NIRALIR #### [facility] [address] [place] [address] Dr. Douglas Tucker UA PROTEIN TRACE Normal NEGATIVE/ TRACE [facility] Comment on above: Performed By: #### BLAINE MALAVE ERUR #### [facility] [address] [place] [address] Dr. Douglas Tucker UR MICRO IND INDICATED Normal [facility] Comment on above: Performed By: #### BLAINE MALAVE, NIRALIR #### [facility] [address] [address] [address] Douglas Tucker Urobilinogen Qn (U) 0.2 {Elba'U}/dL Normal 0.2 - 1. 0 [facility] Comment on above: Performed By: #### BLAINE MALAVE, NIRALIR #### [facility] [address] [place] [address] Dr. Douglas Tucker URon 04-25-2022 , QUAL Negative Normal NEGATIVE [facility] Comment on above: Performed By: #### BLAINE MALAVE, ERUR #### [facility] [address] [address] [address] Douglas Tucker URINE MICROSCOPIC ONLYon BACTERIA MODERATE Abnormal NONE SEEN [facility] Comment on above: Performed By: #### P REGFred UMICRO, ERUR #### [facility] [address] [address] [address] Douglas Tucker Bacteria identified Cx Nom (U) INDICATED Normal [facility] Comment on above: Performed By: #### P REGFred UMICRO, ERUR #### [facility] [address] [address] [address] Douglas Tucker CAST NONE SEEN Normal NONE SEEN [facility] Comment on above: Performed By: #### P BUDDY UMICRO, ERUR #### [facility] [address] [address] [address] Douglas Tucker Crystals LM Nom (Urine sed) NONE SEEN Normal NONE SEEN [facility] Comment on above: Performed By: #### P CHERYL GOODWINICRO, ERUR #### [facility] [address] [address] [address] Douglas Tucker Epithelial cells LM Ql (Urine sed) MODERATE Abnormal NONE SEEN /RARE [facility] Comment on above: Performed By: #### P CHERYL GOODWINICRO, ERUR #### [facility] [address] [address] [address] Douglas Tucker MUCOUS NONE SEEN Normal NONE SEEN [facility] Comment on above: Performed By: #### P MONALISA GOODWINRO, ERUR #### [facility] [address] [address] [address] Douglas Tucker RBC 2-5 Abnormal 0-2 [facility] Comment on above: Performed By: #### P CHERYL GOODWINICRO, ERUR #### [facility] [address] [address] [address] Douglas Tucker WBC 0-2 Abnormal NONE SEEN [facility] Comment on above: Performed By: #### P MONALISA GOODWINRO, ERUR #### [facility] [address] [address] [address] Douglas Tucker COVID-19 Antigenon 3 COVID-19 [...] developed and its performance characteristic determined by [employer] and validated at [facility]. This test has not been FDA cleared [...] for SARS Antigen by LILLY PERFORMED BY: [facility] [address] [place] [address] PATHOLOGIST CLOTH DOUBLING MACHINE OPERATOR LEV HERNÁNDEZ M.D. [facility] Comment on above: Performed By: #### C OVID-19 KEVIN, SOFIANEG #### [place] [address] COVID-19 SOFIAOrdered By: Adal Garcia on 04-23-2022 SARS-CoV+SARS-CoV-2 (COVID-19) Ag IA.rapid Ql (Resp) Negative Negative [facility] Comment on above: This is a duplicate Kevin SARS Antigen (LILLY) result to be used for statistical tracking purpose only. No Panel InformationOrdered By: Rell Garcia on 04-23-2022 SARS Antigen (LFIA) [facility] Kevin Ag Negativeon 04-23-19 23 Kevin Ag Negative Negative Normal Negative [facility] Comment on above: Result Comment: This is a duplicate Kevin SARS Antigen (LILLY) result to be used for statistical tracking purpose only. PERFORMED BY: [place] [address] PATHOLOGIST CLOTH DOUBLING MACHINE OPERATOR LEV HERNÁNDEZ M.D. Performed By: #### P T, CBC, CMP, PTT #### [address] Activated partial thrombopla stin time (aPTT) in platelet poor plasma by coagulation aOrdered By: Rell Garcia on 04-10-2022 aPTT Coag (PPP) [Time] 31.6 s 25.1-36.5 [facility] Albumin [Mass/volume] in Ser um or PlasmaOrdered By: Rell Garcia on 04-10-2022 Albumin [Mass/Vol] 4.4 g/dL 3.2-5.5 [facility] Automated erythrocytes count in urine sediment (number/area)Ordered By: Rell Garcia on 04-10-2022 RBC Auto (Urine sed) [#/Area] None seen [HPF] 0-4 [facility] Automated leukocytes count i n urine sediment (number/area)Ordered By: Rell Garcia on 04-10-2022 WBC Auto (Urine sed) [#/Area] 20-49 [HPF] 0-4 [facility] Automated urine hyaline cast s count (number/volume)Ordered By: Rell Garcia on 04-10-2022 Hyaline casts Auto (U) [#/Vol] None seen [LPF] 0-1 [facility] Basophils Auto (Bld) [#/Vol] Ordered By: Rell Garcia on 04-10-2022 Basophils (Bld) [#/Vol] 0.0 10*3/uL 0.0-0.2 [facility] Basophils/100 WBC Auto (Bld) Ordered By: Rell Garcia on 04-10-2022 Basophils/100 WBC (Bld) 0.4 % . [facility] Bilirubin Test strip Ql (U)O rdered By: Rell Garcia on 04-10-2022 Bilirubin Ql (U) Negative Negative [facility] Casts typing in urine sedime nt by light microscopyOrdered By: Rell Garcia on 04-10-2022 Casts LM Nom (Urine sed) None seen [LPF] None Seen [facility] Color Auto (U)Ordered By: Adal Garcia on 04-10-2022 Color (U) Yellow Yellow [facility] Complete Blood Count Auto Di ffon 04-10-2022 Basophils (Bld) [#/Vol] 0.0 10*3/uL Normal 0.0-0.2 [facility] Comment on above: Result Comment: PERF ORMED BY: [place] [address] PATHOLOGIST CLOTH DOUBLING MACHINE OPERATOR LEV HERNÁNDEZ M.D. Performed By: #### P T, CBC, CMP, PTT #### [address] Basophils/100 WBC (Bld) 0.4 % Normal . [facility] Comment on above: Performed By: #### P T, CBC, CMP, PTT #### [facility] [address] [place] [address] [place] Eosinophils (Bld) [#/Vol] 0.3 10*3/uL Normal 0.0-0.45 [facility] Comment on above: Performed By: #### P T, CBC, CMP, PTT #### [facility] [address] [place] [address] [place] Eosinophils/100 WBC (Bld) 3.6 % Normal . [facility] Comment on above: Performed By: #### P T, CBC, CMP, PTT #### [facility] [address] [place] [address] [place] Erythrocyte distribution width (RBC) [Ratio] 13.0 % Normal 11.9-15.3 [facility] Comment on above: Performed By: #### P T, CBC, CMP, PTT #### [address] Hematocrit (Bld) [Volume fraction] 44.2 % Normal 34.0-46.4 [facility] Comment on above: Performed By: #### P T, CBC, CMP, PTT #### [address] Hemoglobin (Bld) [Mass/Vol] 14.8 g/dL Normal 11.8-15.4 [facility] Comment on above: Performed By: #### P T, CBC, CMP, PTT #### [address] Lymphocytes (Bld) [#/Vol] 3.0 10*3/uL Normal 1.00-4.8 [facility] Comment on above: Performed By: #### P T, CBC, CMP, PTT #### [address] Lymphocytes/100 WBC (Bld) 35.3 % Normal . [facility] Comment on above: Performed By: #### P T, CBC, CMP, PTT #### [address] MCH (RBC) [Entitic mass] 31.8 pg Normal 24.7-34.3 [facility] Comment on above: Performed By: #### P T, CBC, CMP, PTT #### [address] MCV (RBC) [Entitic vol] 95.0 fL Normal 80-100 [facility] Comment on above: Performed By: #### P T, CBC, CMP, PTT #### [address] Mean Corpuscular HGB Conc 33.5 g/dL Normal 32.0-35.0 [facility] Comment on above: Performed By: #### P T, CBC, CMP, PTT #### [facility] [address] [place] [address] [place] Monocytes (Bld) [#/Vol] 0.6 10*3/uL Normal 0.0-0.8 [facility] Comment on above: Performed By: #### P T, CBC, CMP, PTT #### [facility] [address] Monocytes/100 WBC (Bld) 7.0 % Normal . [facility] Comment on above: Performed By: #### P T, CBC, CMP, PTT #### [facility] [address] [place] [address] Neutrophils (Bld) [#/Vol] 4.6 10*3/uL Normal 1.8-7.7 [facility] Comment on above: Performed By: #### P T, CBC, CMP, PTT #### [facility] [address] [place] [address] Neutrophils/100 WBC (Bld) 53.7 % Normal . [facility] Comment on above: Performed By: #### P T, CBC, CMP, PTT #### [facility] [address] [place] [address] NRBC% 0.1 /100{WBC} Normal 0-0.5 [facility] Comment on above: Performed By: #### P T, CBC, CMP, PTT #### [facility] [address] [place] [address] Platelet mean volume (Bld) [Entitic vol] 9.1 fL Normal 6.3-10.7 [facility] Comment on above: Performed By: #### P T, CBC, CMP, PTT #### [facility] [address] [place] [address] [place] Platelets (Bld) [#/Vol] 192 10*3/uL Normal 150-450 [facility] Comment on above: Performed By: #### P T, CBC, CMP, PTT #### [facility] [address] [place] [address] [place] RBC (Bld) [#/Vol] 4.65 10*6/uL Normal 3.60-5.00 [facility] Comment on above: Performed By: #### P T, CBC, CMP, PTT #### [address] WBC (Bld) [#/Vol] 8.6 10*3/uL Normal 3.8-11.6 [facility] Comment on above: Performed By: #### P T, CBC, CMP, PTT #### [address] Comprehensive Metabolic Pane mitchel 04-10-2022 Albumin [Mass/Vol] 4.4 g/dL Normal 3.2-5.5 [facility] Comment on above: Performed By: #### P T, CBC, CMP, PTT #### [address] Albumin/Globulin [Mass ratio] 1.4 {ratio} Normal [facility] Comment on above: Performed By: #### P T, CBC, CMP, PTT #### [address] ALP [Catalytic activity/Vol] 47 U/L Normal 32-92 [facility] Comment on above: Result Comment: PERF ORMED BY: [place] [address] PATHOLOGIST CLOTH DOUBLING MACHINE OPERATOR LEV HERNÁNDEZ M.D. Performed By: #### P T, CBC, CMP, PTT #### [address] ALT [Catalytic activity/Vol] 19 U/L Normal 10-60 [facility] Comment on above: Performed By: #### P T, CBC, CMP, PTT #### [address] Anion gap [Moles/Vol] 13.2 mmol/L Normal 6.0-15.0 [facility] Comment on above: Performed By: #### P T, CBC, CMP, PTT #### [address] AST [Catalytic activity/Vol] 18 U/L Normal 10-42 [facility] Comment on above: Performed By: #### P T, CBC, CMP, PTT #### [facility] [address] [place] [address] Bilirubin [Mass/Vol] 0.7 mg/dL Normal 0.3-1.2 [facility] Comment on above: Performed By: #### P T, CBC, CMP, PTT #### [address] Calcium [Mass/Vol] 9.5 mg/dL Normal 8.2-10.2 [facility] Comment on above: Performed By: #### P T, CBC, CMP, PTT #### [address] Chloride [Moles/Vol] 106 mmol/L Normal 95-114 [facility] Comment on above: Performed By: #### P T, CBC, CMP, PTT #### [address] CO2 [Moles/Vol] 18.9 mmol/L Low 22.0-30.0 [facility] Comment on above: Performed By: #### P T, CBC, CMP, PTT #### [address] Creatinine [Mass/Vol] 0.80 mg/dL Normal 0.44-1.03 [facility] Comment on above: Performed By: #### P T, CBC, CMP, PTT #### [address] Estimated GFR ( Margi > 60 [facility] Comment on above: Result Comment: GFR estimated reference range: According to KDOQI guidelines, <60 ml/min/1.73m2 is sufficient to diagnose a patient with chronic kidney disease. Performed By: #### P T, CBC, CMP, PTT #### [address] Estimated GFR (Non- Am > 60 [facility] Comment on above: Performed By: #### P T, CBC, CMP, PTT #### [facility] [address] Globulin (S) [Mass/Vol] 3.1 g/dL Normal [facility] Comment on above: Performed By: #### P T, CBC, CMP, PTT #### [place] [address] Glucose [Mass/Vol] 88 mg/dL Normal 70-100 [facility] Comment on above: Result Comment: [facility] Glucose Reference Range is dependent on time and content of last meal. Glucose of more than 200 mg/dL in a nonstressed, ambulatory subject supports the diagnosis of Diabetes Mellitus. ADA recommended reference range Performed By: #### P T, CBC, CMP, PTT #### [facility] [address] Potassium [Moles/Vol] 4.1 mmol/L Normal 3.5-5.1 [facility] Comment on above: Performed By: #### P T, CBC, CMP, PTT #### [facility] [address] [place] [address] [place] Protein [Mass/Vol] 7.5 g/dL Normal 6.1-7.9 [facility] Comment on above: Performed By: #### P T, CBC, CMP, PTT #### [place] [address] Sodium [Moles/Vol] 134 mmol/L Low 136-146 [facility] Comment on above: Performed By: #### P T, CBC, CMP, PTT #### [facility] [address] [place] [address] [place] Urea nitrogen [Mass/Vol] 14 mg/dL Normal 9-23 [facility] Comment on above: Performed By: #### P T, CBC, CMP, PTT #### [facility] [address] [place] [address] [place] Creatinine and Glomerular fi ltration rate.predicted panel (S/P/Bld)Ordered By: Rell Garcia on 04-10-2022 Creatinine [Mass/Vol] 0.80 mg/dL 0.44-1.03 [facility] Dipstick and Microscopicon 1 06-11-2021 Appearance (U) Cloudy Critically abnormal Clear [facility] Comment on above: Order Comment: Name Collection Type:: Clean-Voided Midstream Performed By: #### C UU, ADDONUAPLUS #### [facility] [address] [place] [address] Bacteria,Urine 2+ High None Seen [facility] Comment on above: Order Comment: Name Collection Type:: Clean-Voided Midstream Performed By: #### C UU, ADDONUAPLUS #### [facility] [address] [place] [address] [place] Bilirubin,Urine Negative Normal Negative [facility] Comment on above: Order Comment: Name Collection Type:: Clean-Voided Midstream Performed By: #### C UU, ADDONUAPLUS #### [facility] [address] [place] [address] [place] Color (U) Yellow Normal Yellow [facility] Comment on above: Order Comment: Name Collection Type:: Clean-Voided Midstream Performed By: #### C UU, ADDONUAPLUS #### [facility] [address] [place] [address] [place] Glucose Ql (U) Normal Normal Normal [facility] Comment on above: Order Comment: Name Collection Type:: Clean-Voided Midstream Performed By: #### C UU, ADDONUAPLUS #### [facility] [address] [place] [address] [place] Hyaline Casts,Urine None Seen Normal 0-1 [facility] Comment on above: Order Comment: Name Collection Type:: Clean-Voided Midstream Performed By: #### C UU, ADDONUAPLUS #### [facility] [address] [place] [address] [place] Ketones Ql (U) Negative Normal Negative [facility] Comment on above: Order Comment: Name Collection Type:: Clean-Voided Midstream Performed By: #### C UU, ADDONUAPLUS #### [facility] [address] [place] [address] [place] Leukocyte esterase Test strip Ql (U) 3+ High Negative [facility] Comment on above: Order Comment: Name Collection Type:: Clean-Voided Midstream Performed By: #### C UU, ADDONUAPLUS #### [address] Nitrite,Urine Negative Normal Negative [facility] Comment on above: Order Comment: Name Collection Type:: Clean-Voided Midstream Performed By: #### C UU, ADDONUAPLUS #### [address] Occult Blood,Urine Negative Normal Negative [facility] Comment on above: Order Comment: Name Collection Type:: Clean-Voided Midstream Result Comment: PERF ORMED BY: [place] [address] PATHOLOGIST CLOTH DOUBLING MACHINE OPERATOR LEV HERNÁNDEZ M.D. Performed By: #### C UU, ADDONUAPLUS #### [address] Other Casts,Urine None Seen Normal None Seen [facility] Comment on above: Order Comment: Name Collection Type:: Clean-Voided Midstream Result Comment: PERF ORMED BY: [place] [address] PATHOLOGIST CLOTH DOUBLING MACHINE OPERATOR LEV HERNÁNDEZ M.D. Performed By: #### C UU, ADDONUAPLUS #### [address] pH (U) 5.5 [pH] Normal 5.0-9.0 [facility] Comment on above: Order Comment: Name Collection Type:: Clean-Voided Midstream Performed By: #### C UU, ADDONUAPLUS #### [address] Protein,Urine Negative Normal Negative [facility] Comment on above: Order Comment: Name Collection Type:: Clean-Voided Midstream Performed By: #### C UU, ADDONUAPLUS #### [address] RBC,Urine None Seen Normal 0-4 [facility] Comment on above: Order Comment: Name Collection Type:: Clean-Voided Midstream Performed By: #### C UU, ADDONUAPLUS #### [facility] [address] [place] [address] Specificy [place],Urine 1.016 Normal 1.001-1.030 [facility] Comment on above: Order Comment: Name Collection Type:: Clean-Voided Midstream Performed By: #### C UU, ADDONUAPLUS #### [facility] [address] [place] [address] Squamous Epithelial Cell,Urine 10-19 High 0-2 [facility] Comment on above: Order Comment: Name Collection Type:: Clean-Voided Midstream Performed By: #### C UU, ADDONUAPLUS #### [facility] [address] [place] [address] Urobilinogen,Urine Normal Normal Normal [facility] Comment on above: Order Comment: Name Collection Type:: Clean-Voided Midstream Performed By: #### C UU, ADDONUAPLUS #### [facility] [address] [place] [address] WBC,Urine 20-49 High 0-4 [facility] Comment on above: Order Comment: Name Collection Type:: Clean-Voided Midstream Performed By: #### C UU, ADDONUAPLUS #### [facility] [address] [place] [address] Eosinophils Auto (Bld) [#/Vo l]Ordered By: Rell Garcia on 04-10-2022 Eosinophils (Bld) [#/Vol] 0.3 10*3/uL 0.0-0.45 [facility] Eosinophils/100 WBC Auto (Bl d)Ordered By: Rell Garcia on 04-10-2022 Eosinophils/100 WBC (Bld) 3.6 % . [facility] Erythrocyte distribution wid th Auto (RBC) [Ratio]Ordered By: Rell Garcia on 04-10-2022 Erythrocyte distribution width (RBC) [Ratio] 13.0 % 11.9-15.3 [facility] Estimated glomerular filtrat ion rate (GFR) non- AmericanOrdered By: Rell Garcia on 04-10-2022 GFR/1.73 sq M.predicted among non-blacks MDRD (S/P/Bld) [Vol rate/Area] > 60 mL/Min [facility] Globulin Calc (S) [Mass/Vol] Ordered By: Rell Garcia on 04-10-2022 Globulin (S) [Mass/Vol] 3.1 g/dL [facility] Hematocrit Auto (Bld) [Volum e fraction]Ordered By: Rell Garcia on 04-10-2022 Hematocrit (Bld) [Volume fraction] 44.2 % 34.0-46.4 [facility] Hemoglobin [Mass/volume] in BloodOrdered By: Rell Garcia on 04-10-2022 Hemoglobin (Bld) [Mass/Vol] 14.8 g/dL 11.8-15.4 [facility] Ketones Auto test strip (U) [Mass/Vol]Ordered By: Rell Garcia on 04-10-2022 Ketones (U) [Mass/Vol] Negative Negative Fi [facility] - CoagulationOrde red By: Rell Garcia on 04-10-2022 PT Coag (PPP) [Time] 10.8 s 9.0-12.9 [facility] Leukocytes [#/volume] correc armaan for nucleated erythrocytes in Blood by Automated counOrdered By: Rell Garcia on 04-10-2022 WBC corrected for nucl RBC Auto (Bld) [#/Vol] 8.6 10*3/uL 3.8-11.6 [facility] Lymphocytes Auto (Bld) [#/Vo l]Ordered By: Rell Garcia on 04-10-2022 Lymphocytes (Bld) [#/Vol] 3.0 10*3/uL 1.00-4.8 [facility] Lymphocytes/100 WBC Auto (Bl d)Ordered By: Rell Garcia on 04-10-2022 Lymphocytes/100 WBC (Bld) 35.3 % . [facility] MCH Auto (RBC) [Entitic mass ]Ordered By: Rell Garcia on 04-10-2022 MCH (RBC) [Entitic mass] 31.8 pg 24.7-34.3 [facility] MCHC Auto (RBC) [Mass/Vol]Or dered By: Rell Garcia on 04-10-2022 MCHC (RBC) [Mass/Vol] 33.5 g/dL 32.0-35.0 [facility] MCV Auto (RBC) [Entitic vol] Ordered By: Rell Garcia on 04-10-2022 MCV (RBC) [Entitic vol] 95.0 fL 80-100 [facility] Monocytes Auto (Bld) [#/Vol] Ordered By: Rell Garcia on 04-10-2022 Monocytes (Bld) [#/Vol] 0.6 10*3/uL 0.0-0.8 [facility] Monocytes/100 WBC Auto (Bld) Ordered By: Rell Garcia on 04-10-2022 Monocytes/100 WBC (Bld) 7.0 % . [facility] Neutrophils Auto (Bld) [#/Vo l]Ordered By: Rell Garcia on 04-10-2022 Neutrophils (Bld) [#/Vol] 4.6 10*3/uL 1.8-7.7 [facility] Neutrophils/100 WBC Auto (Bl d)Ordered By: Rell Garcia on 04-10-2022 Neutrophils/100 WBC (Bld) 53.7 % . [facility] Nitrite Test strip Ql (U)Ord ered By: Rell Garcia on 04-10-2022 Nitrite Ql (U) Negative Negative [facility] No Panel InformationOrdered By: Rell Garcia on 04-10-2022 Estimated GFR () > 60 mL/Min [facility] Comment on above: GFR estimated refere nce range: According to KDOQI guidelines, <60 ml/min/1.73m2 is sufficient to diagnose a patient with chronic kidney disease. Pharmacy Creatinine Clearance (Chem N/A [facility] Nucleated erythrocytes [Pres ence] in Blood by Automated countOrdered By: Rell Garcia on 04-10-2022 Nucleated RBC Auto Ql (Bld) 0.1 /100{WBC} 0-0.5 [facility] PST Type and Screenon 2021 ABO and Rh group Nom (Bld) Blood group B Rh(D) positive Normal [facility] Comment on above: Order Comment: Date of Surgery: [id number] Partial Thromboplastin Timeo n 04-10-2022 aPTT Coag (Bld) [Time] 31.6 s Normal 25.1-36.5 [facility] Comment on above: Result Comment: PERF ORMED BY: [place] [address] PATHOLOGIST CLOTH DOUBLING MACHINE OPERATOR LEV HERNÁNDEZ M.D. Performed By: #### P T, CBC, CMP, PTT #### [place] [address] Platelet mean volume Auto (B ld) [Entitic vol]Ordered By: Rell Garcia on 04-10-2022 Platelet mean volume (Bld) [Entitic vol] 9.1 fL 6.3-10.7 [facility] Platelet poor plasma interna tional normalized ratio (INR) by coagulation assay (relatOrdered By: Rell Garcia on 04-10-2022 INR Coag (PPP) [Relative time] 1.0 {INR} [facility] Comment on above: INR Therapeutic Rang e [...] 04-10-2022 Platelets (Bld) [#/Vol] 192 10*3/uL 150-450 [facility] Protein Auto test strip (U) [Mass/Vol]Ordered By: Rell Garcia on 04-10-2022 Protein (U) [Mass/Vol] Negative Negative Fi [facility] Protein [Mass/volume] in Ser um or PlasmaOrdered By: Rell Garcia on 04-10-2022 Protein [Mass/Vol] 7.5 g/dL 6.1-7.9 [facility] Prothrombin Time INRon 04-10 INR Coag (PPP) [Relative time] 1.0 {INR} Normal [facility] Comment on above: Result Comment: INR Therapeutic [...] #### P T, CBC, CMP, PTT #### [facility] [address] PT Coag (PPP) [Time] 10.8 s Normal 9.0-12.9 [facility] Comment on above: Performed By: #### P T, CBC, CMP, PTT #### [facility] [address] RBC Auto (Bld) [#/Vol]Ordere d By: Rell Garcia on 04-10-2022 RBC (Bld) [#/Vol] 4.65 10*6/uL 3.60-5.00 [facility] Serum or plasma alanine venegas otransferase measurement without P-5'-P (enzymatic activiOrdered By: Rell Garcia on 04-10-2022 ALT No additional P-5'-P [Catalytic activity/Vol] 19 U/L 10-60 [facility] Serum or plasma albumin/glob ulin mass ratioOrdered By: Rell Garcia on 04-10-2022 Albumin/Globulin [Mass ratio] 1.4 {ratio} [facility] Serum or plasma alkaline molina sphatase measurement (enzymatic activity/volume)Ordered By: Rell Garcia on 04-10-2022 ALP [Catalytic activity/Vol] 47 U/L 32-92 [facility] Serum or plasma anion gap de terminationOrdered By: Rell Garcia on 04-10-2022 Anion gap [Moles/Vol] 13.2 mmol/L 6.0-15.0 [facility] Serum or plasma aspartate am inotransferase measurement (enzymatic activity/volume)Ordered By: Rell Garcia on 04-10-2022 AST [Catalytic activity/Vol] 18 U/L 10-42 [facility] Serum or plasma calcium liam urement (mass/volume)Ordered By: Rell Garcia on 04-10-2022 Calcium [Mass/Vol] 9.5 mg/dL 8.2-10.2 [facility] Serum or plasma chloride fransisca surement (moles/volume)Ordered By: Rell Garcia on 04-10-2022 Chloride [Moles/Vol] 106 mmol/L 95-114 [facility] Serum or plasma glucose liam urement (mass/volume)Ordered By: Rell Garcia on 04-10-2022 Glucose [Mass/Vol] 88 mg/dL 70-100 [facility] Comment on above: ADA recommended refe rence rangeRandom Glucose Reference Range is dependent on time and content of last meal. Glucose of more than 200 mg/dL in a nonstressed, ambulatory subject supports the diagnosis of Diabetes Mellitus. Serum or plasma potassium me asurement (moles/volume)Ordered By: Rell Garcia on 04-10-2022 Potassium [Moles/Vol] 4.1 mmol/L 3.5-5.1 [facility] Serum or plasma sodium measu rement (moles/volume)Ordered By: Rell Garcia on 04-10-2022 Sodium [Moles/Vol] 134 mmol/L 136-146 [facility] Serum or plasma total biliru bin measurement (mass/volume)Ordered By: Rell Garcia on 04-10-2022 Bilirubin [Mass/Vol] 0.7 mg/dL 0.3-1.2 [facility] Serum or plasma total carbon dioxide measurement (moles/volume)Ordered By: Rell Garcia on 04-10-2022 CO2 [Moles/Vol] 18.9 mmol/L 22.0-30.0 [facility] Serum or plasma urea nitroge n measurement (mass/volume)Ordered By: Rell Garcia on 04-10-2022 Urea nitrogen [Mass/Vol] 14 mg/dL - [facility] Specific gravity Auto test s trip (U) [Rel density]Ordered By: Rell Garcia on 04-10-2022 Specific gravity (U) [Rel density] 1.016 1.001-1.030 [facility] Squamous epithelial cells de tection in urine sediment by light microscopyOrdered By: Rell Garcia on 04-10-2022 Epithelial cells.squamous LM Ql (Urine sed) 10-19 [HPF] 0-2 [facility] Urine Cultureon 04-10-2022 Bacteria identified Cx Nom (U) 15,000 colonies/ml mixed bacterial skin contaminants 2 Days PERFORMED BY: [place] [address] PATHOLOGIST [employer]OTH DOUBLING MACHINE OPERATOR LEV HERNÁNDEZ M.D. Normal [facility] Comment on above: Performed By: #### C UU, ADDONUAPLUS #### [address] Urine bacteria detection by automated methodOrdered By: Rell Garcia on 04-10-2022 Bacteria Auto Ql (U) 2+ None Seen [facility] Urine clarity by refractomet ry automatedOrdered By: Rell Garcia on 04-10-2022 Clarity Refractometry automated (U) Cloudy Clear [facility] Urine culture routineOrdered By: Rell Garcia on 04-10-2022 Bacteria identified Cx Nom (U) 2 Days [facility] Urine glucose measurement by automated test strip (mass/volume)Ordered By: Rell Garcia on 04-10-2022 Glucose Auto test strip (U) [Mass/Vol] Normal mg/dL Normal [facility] Urine hemoglobin detection b y automated test stripOrdered By: Rell Garcia on 04-10-2022 Hemoglobin Auto test strip Ql (U) Negative Negative [facility] Urine leukocyte esterase det ection by automated test stripOrdered By: Rell Garcia on 04-10-2022 Leukocyte esterase Auto test strip Ql (U) 3+ Negative [facility] Urobilinogen Auto test strip (U) [Mass/Vol]Ordered By: Rell Garcia on 04-10-2022 Urobilinogen (U) [Mass/Vol] Normal mg/dL Normal [facility] WBC Auto (Bld) [#/Vol]Ordere d By: Rell Garcia on 04-10-2022 WBC (Bld) [#/Vol] 8.6 10*3/uL 3.8-11.6 [facility] pH Auto test strip (U)Ordere d By: Rell Garcia on 04-10-2022 pH (U) 5.5 [pH] 5.0-9.0 [facility] XR ANKLE RT MIN 3 VIEWSon XR [...] by: LIZZIE YU Date: 2022-03-28 22:01 Normal [facility] XR SHOULDER LT 2V or >on XR [...] by: JASS GRISSOM Date: 2022-02-10 21:41 Normal [facility] CBC AUTO DIFFon 01-28-2022 BASO # 0.0 103/ul Normal 0.0-0.1 [facility] Comment on above: Performed By: #### C BC ####[facility] [address] [place] [id number]. Douglas Tucker Basophils/100 WBC (Bld) 0.7 % Normal 0.2-2.[address] [facility] Comment on above: Performed By: #### C BC ####[facility] [address] [place] [id number] Tucker EO # 0.1 103/ul Normal 0.0-0.7 [facility] Comment on above: Performed By: #### C BC ####[facility] X[address] [place] [id number] Tucker Eosinophils/100 WBC (Bld) 2.2 % Normal 0.9-7.0 [facility] Comment on above: Performed By: #### C BC ####[facility] [address] [place], [place] [address]Dr. Douglas Tucker Erythrocyte distribution width (RBC) [Ratio] 12.0 % Normal 11.0-15.0 [facility] Comment on above: Performed By: #### C BC ####[facility] [address] [place], [place] [address]Dr. Douglas Tucker Hematocrit (Bld) [Volume fraction] 41.3 % Normal 36.0-48.0 [facility] Comment on above: Performed By: #### C BC ####[facility] Usf[address] [place], [place] [address]Dr. Douglas Tucker Hemoglobin (Bld) [Mass/Vol] 13.7 g/dL Normal 12.0-16.0 [facility] Comment on above: Performed By: #### C BC ####[facility] S[address]tswf[address] [place], [place] [address]Dr. Douglas Tucker IG # 0.01 10e3/ul Normal 0.00-0.03 [facility] Comment on above: Performed By: #### C BC ####[facility] W[address] [place], [place] [address]Dr. Douglas Tucker IG % 0.2 % Normal 0.0-0.5 [facility] Comment on above: Performed By: #### C BC ####[facility] X[address] [place], [place] [address]Dr. Douglas Tucker LYMPH # 2.1 103/ul Normal 1.2-3.8 [facility] Comment on above: Performed By: #### C BC ####[facility] Clvalykihs[address] [place], [place] [address]Dr. Doulgas Tucker Lymphocytes/100 WBC (Bld) 38.5 % Normal 20.5-60.0 [facility] Comment on above: Performed By: #### C BC ####[facility] [address] [place], [place] [address]DrHernandez Tucker MANUAL DIFF REQ NO Normal [facility] Comment on above: Performed By: #### C BC ####[facility] Nygjp[address]ey[address] [place], [place] [address]DrHernandez Tucker MCH (RBC) [Entitic mass] 31.9 pg Normal 26.7-34.0 [facility] Comment on above: Performed By: #### C BC ####[facility] K[address] [place], [place] [address]DrHernandez Tucker MCHC (RBC) [Mass/Vol] 33.2 g/dL Normal 29.9-35.2 [facility] Comment on above: Performed By: #### C BC ####[facility] Ucrcy[address] [place], [place] [address]DrHernandez Tucker MCV (RBC) [Entitic vol] 96.0 fL Normal 81.0-99.[address] [facility] Comment on above: Performed By: #### C BC ####[facility] [address] [place], [place] [address]DrHernandez Tucker MONO # 0.4 103/ul Normal 0.3-0.8 [facility] Comment on above: Performed By: #### C BC ####[facility] Ph[address]syq[address] [place], [place] [address]DrHernandez Tucker Monocytes/100 WBC (Bld) 7.8 % Normal 1.7-12.[address] [facility] Comment on above: Performed By: #### C BC ####[facility] [address] [place], [place] [address]DrHernandez Tucker NEUT # 2.8 103/ul Normal 1.4-6.5 [facility] Comment on above: Performed By: #### C BC ####[facility] Frcxb[address]ciq[address] [place], [place] [address]DrHernandez Tucker Neutrophils/100 WBC (Bld) 50.6 % Normal 43.0-75.0 [facility] Comment on above: Performed By: #### C BC ####[facility] A[address]llvgh[address] [place], [place] [address]DrHernandez Tucker Platelet mean volume (Bld) [Entitic vol] 10.7 fL Normal 9.5-13.5 [facility] Comment on above: Performed By: #### C BC ####[facility] [address] [place] [address]Dr. Douglas Tucker PLT 189 103/ul Normal 150-450 [facility] Comment on above: Performed By: #### C BC ####[facility] [address] [place] [address]DrHernandez Tucker RBC 4.30 106/ul Normal 4.20-5.40 [facility] Comment on above: Performed By: #### C BC ####[facility] [address] [place] [address]Dr. Douglas Tucker WBC 5.5 103/ul Normal 4.0-11.0 [facility] Comment on above: Performed By: #### C BC ####[facility] [address] [place] [address]Dr. Douglas Tucker CULTURE URINEon 01-28-2022 CULTURE URINE Culture Observations : MODERATE GROWTH OF MIXED GENITAL CRICKET. NO POTENTIAL PATHOGENS SEEN. Normal [facility] Comment on above: Performed By: #### U RCX ####[facility] [address] [place] [address]Dr. Douglas Tucker ER URINE PROFILEon 2 Bilirubin Ql (U) Negative Normal NEGATIVE [facility] Comment on above: Performed By: #### U MICRO, ERUR #### [facility] [address] [address] [address] Douglas Tucker Clarity (U) CLEAR Normal CLEAR [facility] Comment on above: Performed By: #### U MICRO, ERUR #### [facility] [address] [address] [address] Douglas Tucker Color (U) LT. YELLOW Normal YELLOW [facility] Comment on above: Performed By: #### U MICRO, ERUR #### [facility] [address] [address] [address] Douglas Tucker ERUAHD A micrscopic examina tion will be performed if indicated. Normal [facility] Comment on above: Performed By: #### U MICRO, ERUR #### [facility] [address] [address] [address] Douglas Tucker Glucose Ql (U) Negative Normal NEGATIVE [facility] Comment on above: Performed By: #### U MICRO, ERUR #### [facility] [address] [address] [address] Douglas Tucker Hemoglobin Ql (U) TRACE-INTACT Abnormal NEGATIVE [facility] Comment on above: Performed By: #### U MICRO, ERUR #### [facility] [address] [address] [address] oDuglas Tucker Ketones Ql (U) Negative Normal NEGATIVE [facility] Comment on above: Performed By: #### U MICRO, ERUR #### [facility] [address] [place] [address] Dr. Douglas Tucker LEUKOCYTES TRACE Abnormal NEGATIVE [facility] Comment on above: Performed By: #### U MICRO, ERUR #### [facility] [address] [place] [address] Dr. Douglas Tucker Nitrite Ql (U) Negative Normal NEGATIVE [facility] Comment on above: Performed By: #### U MICRO, ERUR #### [facility] [address] [place] [address] Dr. Douglas Tucker pH (U) 6.5 [pH] Normal 5-9 [facility] Comment on above: Performed By: #### U MICRO, ERUR #### [facility] [address] [address] [address] Douglas Tucker SPEC GRAVITY 1.020 Normal 1.005-<=1.0 25 [facility] Comment on above: Performed By: #### U MICRO, ERUR #### [facility] [address] [place] [address] Dr. Douglas Tucker UA PROTEIN Negative Normal NEGATIVE/ TRACE [facility] Comment on above: Performed By: #### U MICRO, ERUR #### [facility] [address] [place] [address] Dr. Douglas Tucker UR MICRO IND INDICATED Normal [facility] Comment on above: Performed By: #### U MICRO, ERUR #### [facility] [address] [address] [address] Douglas uTcker Urobilinogen Qn (U) 0.2 {Elba'U}/dL Normal 0.2 - 1. 0 [facility] Comment on above: Performed By: #### U MICRO, ERUR #### [facility] [address] [address] [address] Douglas Tucker PROF 14(COMP METB)on 022 Albumin [Mass/Vol] 3.9 g/dL Normal 3.4-5.0 [facility] Comment on above: Performed By: #### C MP ####[facility] [address] [place] [address]Dr. Douglas Tucker Albumin/Globulin [Mass ratio] 1.1 {ratio} Normal [facility] Comment on above: Performed By: #### C MP ####[facility] [address] [place], [place] [address]Dr. Douglas Tucker ALP [Catalytic activity/Vol] 52 U/L Normal 46-116 [facility] Comment on above: Performed By: #### C MP ####[facility] [address] [place] [address]Dr. Douglas Tucker ALT [Catalytic activity/Vol] 31 U/L Normal 14-59 [facility] Comment on above: Performed By: #### C MP ####[facility] [address] [place] [address]Dr. Douglas Tucker Anion gap [Moles/Vol] 9.6 mmol/L Normal [facility] Comment on above: Performed By: #### C MP ####[facility] [address] [place] [address]Dr. Douglas Tucker AST [Catalytic activity/Vol] 15 U/L Normal 15-37 [facility] Comment on above: Performed By: #### C MP ####[facility] [address] [place], [place] [address]Dr. Douglas Tucker Bilirubin [Mass/Vol] 0.3 mg/dL Normal 0.2-1.0 [facility] Comment on above: Performed By: #### C MP ####[facility] [address] [place], [place] [address]Dr. Douglas Tucker Calcium [Mass/Vol] 8.6 mg/dL Normal 8.5-10.1 [facility] Comment on above: Performed By: #### C MP ####[facility] [address]vt[address] [place], [place] [address]Dr. Douglas Tucker Chloride [Moles/Vol] 107 mmol/L Normal 98-107 [facility] Comment on above: Performed By: #### C MP ####[facility] [address] [place], [place] [address]Dr. Douglas Tucker CO2 [Moles/Vol] 27.4 mmol/L Normal 21.0-32.0 [facility] Comment on above: Performed By: #### C MP ####[facility] Kh[address]stsvax[address] [place], [place] [address]Dr. Douglas Garrett Creatinine [Mass/Vol] 0.90 mg/dL Normal 0.55-1.02 [facility] Comment on above: Performed By: #### C MP ####[facility] Y[address]so[address]unmb[address] [place], [place] [address]Dr. Douglas Garrett EGFR-AF NAURUAN >60 Normal >=60 [facility] Comment on above: Performed By: #### C MP ####[facility] Kl[address]ix[address] [place], [place] [address]Dr. Umuana Garrett EGFR-NON AF NAURUAN >60 Normal >=60 [facility] Comment on above: Performed By: #### C MP ####[facility] C[address]tmlsgyp[address] [place], [place] [address]Dr. Douglas Tucker Globulin (S) [Mass/Vol] 3.4 g/dL Normal [facility] Comment on above: Performed By: #### C MP ####[facility] I[address]taf[address] [place], [place] [address]Dr. Douglas Tucker Glucose [Mass/Vol] 90 mg/dL Normal 74-106 [facility] Comment on above: Performed By: #### C MP ####[facility] [address] [place] [address]Dr. Douglas Tucker Potassium [Moles/Vol] 4.0 mmol/L Normal 3.5-5.1 [facility] Comment on above: Performed By: #### C MP ####[facility] [address]sm[address] [place] [address]Dr. Douglas Tucker Protein [Mass/Vol] 7.3 g/dL Normal 6.4-8.2 [facility] Comment on above: Performed By: #### C MP ####[facility] [address] [place] [address]Dr. Douglas Tucker Sodium [Moles/Vol] 140 mmol/L Normal 136-145 [facility] Comment on above: Performed By: #### C MP ####[facility] [address] [place] [address]Dr. Douglas Tucker Urea nitrogen [Mass/Vol] 10.0 mg/dL Normal 7.0-18.0 [facility] Comment on above: Performed By: #### C MP ####[facility] [address]ft[address] [place] [address]Dr. Douglas Tucker Urea nitrogen/Creatinine [Mass ratio] 11.1 mg/mg Normal [facility] Comment on above: Performed By: #### C MP ####[facility] [address] [place] [address]Dr. Douglas Tucker URINE MICROSCOPIC ONLYon BACTERIA MODERATE Abnormal NONE SEEN [facility] Comment on above: Performed By: #### U MICRO, ERUR #### [facility] [address] [place] [address] [address] Douglas Tucker Bacteria identified Cx Nom (U) INDICATED Normal [facility] Comment on above: Performed By: #### U MICRO, ERUR #### [facility] [address] [place] [address] [address] Douglas Tucker CAST NONE SEEN Normal NONE SEEN [facility] Comment on above: Performed By: #### U MICRO, ERUR #### [facility] [address] [place] [address] Dr. Douglas Tucker Crystals LM Nom (Urine sed) NONE SEEN Normal NONE SEEN [facility] Comment on above: Performed By: #### U MICRO, ERUR #### [facility] [address] [place] [address] Dr. Douglas Tucker Epithelial cells LM Ql (Urine sed) FEW Abnormal NONE SEEN /RARE [facility] Comment on above: Performed By: #### U MICRO, ERUR #### [facility] [address] [place] [address] Dr. Douglas Tucker MUCOUS NONE SEEN Normal NONE SEEN [facility] Comment on above: Performed By: #### U MICRO, ERUR #### [facility] [address] [place] [address] Dr. Douglas Tucker RBC 0-2 Normal 0-2 [facility] Comment on above: Performed By: #### U MICRO, ERUR #### [facility] [address] [place] [address] Dr. Douglas Tucker WBC 2-5 Abnormal NONE SEEN [facility] Comment on above: Performed By: #### U MICRO, ERUR #### [facility] [address] [place] [address] Dr. Douglas Tucker US KIDNEYSon 01-28-2022 US KIDNEYS [facility]: Pain ; right flank pain for [...] RICHELLE CARTER Date: 2022-01-28 13:45 Normal [facility] CBC AUTO DIFFon 10-29-2021 BASO # 0.1 103/ul Normal 0.0-0.1 [facility] Comment on above: Performed By: #### C BC ####[facility] [address] [place], [place] [address]Dr. Douglas Tucker Basophils/100 WBC (Bld) 0.8 % Normal 0.2-2.[address] [facility] Comment on above: Performed By: #### C BC ####[facility] O[address]ix[address]qp[address] [place], [place] [address]Dr. Douglas Tucker EO # 0.2 103/ul Normal 0.0-0.7 [facility] Comment on above: Performed By: #### C BC ####[facility] [address]rfpt[address]ds[address] [place], [place] [address]Dr. Douglas Tucker Eosinophils/100 WBC (Bld) 3.0 % Normal 0.9-7.0 [facility] Comment on above: Performed By: #### C BC ####[facility] U[address]amiizhr[address] [place], [place] [address]Dr. Douglas Tucker Erythrocyte distribution width (RBC) [Ratio] 12.2 % Normal 11.0-15.0 [facility] Comment on above: Performed By: #### C BC ####[facility] [address]nze[address] [place], [place] [address]Dr. Douglas Tucker Hematocrit (Bld) [Volume fraction] 39.9 % Normal 36.0-48.0 [facility] Comment on above: Performed By: #### C BC ####[facility] [address]qvrvr[address] [place], [place] [address]Dr. Douglas Tucker Hemoglobin (Bld) [Mass/Vol] 13.5 g/dL Normal 12.0-16.0 [facility] Comment on above: Performed By: #### C BC ####[facility] Cp[address]zsekhx[address] [place], [place] [address]Dr. Douglas Tucker IG # 0.01 10e3/ul Normal 0.00-0.03 [facility] Comment on above: Performed By: #### C BC ####[facility] [address] [place] [address]Dr. Umuana Tucker IG % 0.2 % Normal 0.0-0.5 [facility] Comment on above: Performed By: #### C BC ####[facility] M[address]clhaw[address] [place], [place] [address]Dr. Douglas Tucker LYMPH # 3.0 103/ul Normal 1.2-3.8 [facility] Comment on above: Performed By: #### C BC ####[facility] W[address]vny[address] [place], [place] [address]DrHernandez Umuana Tucker Lymphocytes/100 WBC (Bld) 44.6 % Normal 20.5-60.0 [facility] Comment on above: Performed By: #### C BC ####[facility] Ai[address]wmntbm[address] [place], [place] [address]DrHernandez Tucker MANUAL DIFF REQ NO Normal [facility] Comment on above: Performed By: #### C BC ####[facility] Zmwalmodou8[address] [place], [place] [address]Dr. Douglas Garrett MCH (RBC) [Entitic mass] 32.1 pg Normal 26.7-34.0 [facility] Comment on above: Performed By: #### C BC ####[facility] [address]jawus[address] [place], [place] [address]DrHernandez Douglas Garrett MCHC (RBC) [Mass/Vol] 33.8 g/dL Normal 29.9-35.2 [facility] Comment on above: Performed By: #### C BC ####[facility] X[address] [place], [place] [address]DrHernandez Tucker MCV (RBC) [Entitic vol] 95.0 fL Normal 81.0-99.[address] [facility] Comment on above: Performed By: #### C BC ####[facility] X[address]stcx[address]zd[address] [place], [place] [address]DrHernandez Tucker MONO # 0.5 103/ul Normal 0.3-0.8 [facility] Comment on above: Performed By: #### C BC ####[facility] [address]lex[address] [place], [place] [address]Dr. Douglas Tucker Monocytes/100 WBC (Bld) 7.8 % Normal 1.7-12.[address] [facility] Comment on above: Performed By: #### C BC ####[facility] [address] [place] [address]Dr. Douglas Tucker NEUT # 2.9 103/ul Normal 1.4-6.5 [facility] Comment on above: Performed By: #### C BC ####[facility] [address]cmidc[address] [place] [address]Dr. Douglas Tucker Neutrophils/100 WBC (Bld) 43.6 % Normal 43.0-75.0 [facility] Comment on above: Performed By: #### C BC ####[facility] [address]ct[address] [place] [address]Dr. Douglas Tucker Platelet mean volume (Bld) [Entitic vol] 11.1 fL Normal 9.5-13.5 [facility] Comment on above: Performed By: #### C BC ####[facility] [address]ci[address] [place] [address]Dr. Douglas Tucker PLT 188 103/ul Normal 150-450 [facility] Comment on above: Performed By: #### C BC ####[facility] Fos[address]ugtz[address] [place], [place] [address]Dr. Douglas Tucker RBC 4.20 106/ul Normal 4.20-5.40 [facility] Comment on above: Performed By: #### C BC ####[facility] [address] [place], [place] [address]Dr. Douglas Tucker WBC 6.6 103/ul Normal 4.0-11.0 [facility] Comment on above: Performed By: #### C BC ####[facility] [address] [place] [address]Dr. Douglas Tucker MAGNESIUMon 10-29-2021 Magnesium [Mass/Vol] 2.1 mg/dL Normal 1.8-2.4 [facility] Comment on above: Performed By: #### M G, CMP ####[facility] [address] [place], [place] [address]Dr. Douglas Tucker PROF 14(COMP METB)on 022 Albumin [Mass/Vol] 3.6 g/dL Normal 3.4-5.0 [facility] Comment on above: Performed By: #### Alyse Alejandro, CMP ####[facility] [address] [place] [phone]. Douglas Tucker Albumin/Globulin [Mass ratio] 1.2 {ratio} Normal [facility] Comment on above: Performed By: #### Alyse Alejandro, CMP ####[facility] [address] [place] [address]Dr. Douglas Tucker ALP [Catalytic activity/Vol] 61 U/L Normal 46-116 [facility] Comment on above: Performed By: #### Alyse Alejandro, CMP ####[facility] [address] [place] [address]Dr. Douglas Tucker ALT [Catalytic activity/Vol] 25 U/L Normal 14-59 [facility] Comment on above: Performed By: #### Alyse Alejandro, CMP ####[facility] [address] [place] [address]Dr. Douglas Tucker Anion gap [Moles/Vol] 12.4 mmol/L Normal [facility] Comment on above: Performed By: #### Alyse Alejandro, CMP ####[facility] [address] [place] [address]Dr. Douglas Tucker AST [Catalytic activity/Vol] 23 U/L Normal 15-37 [facility] Comment on above: Performed By: #### Alyse Alejandro, CMP ####[facility] [address] [place] [address]Dr. Douglas Tucker Bilirubin [Mass/Vol] 0.3 mg/dL Normal 0.2-1.0 [facility] Comment on above: Performed By: #### Alyse Alejandro, CMP ####[facility] [address] [place] [address]Dr. Douglas Tucker Calcium [Mass/Vol] 8.5 mg/dL Normal 8.5-10.1 [facility] Comment on above: Performed By: #### Alyse Alejandro, CMP ####[facility] [address] [place] [phone]. Douglas Tucker Chloride [Moles/Vol] 106 mmol/L Normal 98-107 [facility] Comment on above: Performed By: #### M G, CMP ####[facility] [address] [place] [phone]. Douglas Tucker CO2 [Moles/Vol] 22.8 mmol/L Normal 21.0-32.0 [facility] Comment on above: Performed By: #### Alyse Alejandro, CMP ####[facility] [address] [place] [phone]. Douglas Tucker Creatinine [Mass/Vol] 0.76 mg/dL Normal 0.55-1.02 [facility] Comment on above: Performed By: #### Alyse Alejandro, CMP ####[facility] [address] [place], [place] [address]Dr. Douglas Tucker EGFR-AF NAURUAN >60 Normal >=60 [facility] Comment on above: Performed By: #### Alyse Alejandro, CMP ####[facility] [address] [place], [place] [address]Dr. Douglas Tucker EGFR-NON AF NAURUAN >60 Normal >=60 [facility] Comment on above: Performed By: #### Alyse Alejandro, CMP ####[facility] [address] [place], [place] [address]Dr. Douglas Tucker Globulin (S) [Mass/Vol] 3.0 g/dL Normal [facility] Comment on above: Performed By: #### Alyse Alejandro, CMP ####[facility] [address] [place], [place] [id number]. Douglas Tucker Glucose [Mass/Vol] 110 mg/dL Critically high 74-[address] [facility] Comment on above: Performed By: #### Alyse G, CMP ####[facility] [address] [place] [address]Dr. Douglas Tucker Potassium [Moles/Vol] 4.2 mmol/L Normal 3.5-5.1 [facility] Comment on above: Performed By: #### M G, CMP ####[facility] [address] [place] [phone]. Douglas Tucker Protein [Mass/Vol] 6.6 g/dL Normal 6.4-8.2 [facility] Comment on above: Performed By: #### M G, CMP ####[facility] [address] [place] [phone]. Douglas Tucker Sodium [Moles/Vol] 137 mmol/L Normal 136-145 [facility] Comment on above: Performed By: #### M G, CMP ####[facility] [address] [place] [phone]. Douglas Tucker Urea nitrogen [Mass/Vol] 12.0 mg/dL Normal 7.0-18.0 [facility] Comment on above: Performed By: #### Alyse G, CMP ####[facility] [address] [place] [phone]. Douglas Tucker Urea nitrogen/Creatinine [Mass ratio] 15.8 mg/mg Normal [facility] Comment on above: Performed By: #### Alyse G, CMP ####[facility] [address] [place] [phone]. Douglas Tucker [facility] 03-07-2021 [facility] HNO ID: [id number] Author: RT Pati(Jd) Service: Radiology Author Type: [...] RT Pati(R) March 07, 2021 5:32 PM [facility] CNDSon 03-07-2021 CNDS HNO ID: [id number] Author: Rosalie Haile MD Service: ? Author [...] Commonly known as: ZANAFLEX Rosalie Haile MD [facility] HISTORY PHYSICALon 1 HISTORY PHYSICAL HNO ID: [id number] Author: Rosalie Haile MD Service: ? Author Type: Physician Type: HANDP Filed: 03/11/2021 7:31 PM Note Text: [facility] : 1990 AGE: 31 SEX: F CSN: [id number] H[facility]: [facility] LOCATION: [facility] ATTENDING PHYSICIAN: Rosalie Haile M.D. ? ? DATE OF SERVICE: 03/06/2021 ? ? SUBJECTIVE: Patient with a history of diabetes and obesity. Admitted to the hospital with seizure. ?This is a 31 year old female with a hx of seizures, diabetes, anxiety, and conversion disorder, who reportedly had a seizure at the airport [facility]. She and her boyfriend had just arrived [...] 40.1 WBC (k/uL) Date Value 03/06/2021 6.79 [facility] consultants notes reviewed Most recent images Reviewed [...] goiter No carotid bruits. Rosalie Haile MD [facility] MRI BRAIN WO IVCONon 021 MRI BRAIN [...] Routine noncontrast MRI protocol including diffusion images. Azzw-ul-wwnqlj MRV brain with post-processing performed at the [...] intravenous contrast. Patent major dural venous sinuses. Stitcher Hand: MAVERICK Transcribe Date/Time: Mar 07 2021 5:46P Dictated by : HOLLAND MUELLER MD This examination was interpreted and the report reviewed and electronically signed by: HOLLAND MUELLER MD on Mar 07 2021 5:51PM EST [id number] Normal [facility] MRV BRAIN WO IVCONon 021 MRV [...] Routine noncontrast MRI protocol including diffusion images. Sued-rr-fphciy MRV brain with post-processing performed at the [...] intravenous contrast. Patent major dural venous sinuses. Stitcher Hand: MAVERICK Transcribe Date/Time: Mar 07 2021 5:46P Dictated by : HOLLAND MUELLER MD This examination was interpreted and the report reviewed and electronically signed by: HOLLAND MUELLRE MD on Mar 07 2021 5:51PM EST [id number] Normal [facility] NURSING PROGon 03-07-2021 NURSING PROG HNO ID: [id number] Author: Toya Pompa RN Service: ? Author Type: Registered Nurse Type: Nursing Progress Note Filed: 03/07/2021 11:35 PM Note Text: Nursing Progress Note Patient Name: Sully Enriquez Patient Location: [place] [address] Pt discharged, transferred via wheelchair to exit where was picking her up. IV/tele removed. All belongings accounted for. This note was completed by: Toya Pompa [facility] NURSING PROG HNO ID: [id number] Author: Cordelia Faye RN Service: Nursing Author Type: Registered Nurse Type: Nursing Progress Note Filed: 03/07/2021 5:15 PM Note Text: Nursing Progress Note Patient Name: Sully Enriquez Patient Location: [place] [address] Daily Note: 0830 Pt AANDOx3.Follows commands. No [...] pitting edema BLE. Call light within reach. [facility] 1630 pt asks to be d/c today and have MRI as OP per neurology recs. Dr Haile paged. 1705 pt to MRI. Medicated with 25 mg of Atarax prior to MRI. [address] Haile to wait for MRI results. If neurology signs off after the MRI is resulted will reach dr Haile for d/c orders. [facility] This note was completed by: Cordelia Faye [facility] NURSING PROG HNO ID: [id number] Author: Breanne Reis RN Service: ? Author [...] This note was completed by: Smiley Raymundo [facility] NURSING PROG HNO ID: [id number] Author: Yoselin Cui RN Service: Nursing Author [...] This note was completed by: Yoselin Cui [facility] ALLIED HEALTHon 03-06-2021 ALLIED HEALTH HNO ID: [id number] Author: RT Sanam(Jd) Service: ? Author Type: [...] Sanam(R) March 06, 2021 2:45 AM Normal [facility] CBC and Differentialon 03-06 Abs Baso 0.04 k/uL Normal <0.11 [facility] Comment on above: Performed By: #### C K, ALCO, CBCDIF, CMP, MG1 ####[place] [phone] Abs Isabella 0.55 k/uL Normal <0.87 [facility] Comment on above: Performed By: #### C K, ALCO, CBCDIF, CMP, MG1 ####[place] [phone] Abs Neut 3.17 k/uL Normal 1.45-7.50 [facility] Comment on above: Performed By: #### C K, ALCO, CBCDIF, CMP, MG1 ####[place] [phone] Absolute nRBC <0.01 Normal <0.01 [facility] Comment on above: Performed By: #### C K, ALCO, CBCDIF, CMP, MG1 ####[place] [phone] Basophils/100 WBC (Bld) 0.6 % Normal [facility] Comment on above: Performed By: #### C K, ALCO, CBCDIF, CMP, MG1 ####[place] [address] DTYPE Auto Diff Normal [facility] Comment on above: Performed By: #### C K, ALCO, CBCDIF, CMP, MG1 ####[place] [address] Eosinophils (Bld) [#/Vol] 0.17 10*3/uL Normal <0.46 [facility] Comment on above: Performed By: #### C K, ALCO, CBCDIF, CMP, MG1 ####[place] [address] Eosinophils/100 WBC (Bld) 2.5 % Normal [facility] Comment on above: Performed By: #### C K, ALCO, CBCDIF, CMP, MG1 ####[place] [address] Erythrocyte distribution width (RBC) [Ratio] 12.0 % Normal 11.5-15.0 [facility] Comment on above: Performed By: #### C K, ALCO, CBCDIF, CMP, MG1 ####[place] [address] Hematocrit (Bld) [Volume fraction] 40.1 % Normal 36.0-46.0 [facility] Comment on above: Performed By: #### C K, ALCO, CBCDIF, CMP, MG1 ####[place] [address] Hemoglobin (Bld) [Mass/Vol] 13.2 g/dL Normal 11.5-15.5 [facility] Comment on above: Performed By: #### C K, ALCO, CBCDIF, CMP, MG1 ####[place] [address] Lymphocytes (Bld) [#/Vol] 2.85 10*3/uL Normal 1.00-4.00 [facility] Comment on above: Performed By: #### C K, ALCO, CBCDIF, CMP, MG1 ####[place] [phone] Lymphocytes/100 WBC (Bld) 42.0 % Normal [facility] Comment on above: Performed By: #### C K, ALCO, CBCDIF, CMP, MG1 ####[place] [phone] MCH 31.8 pG Normal 26.0-34.0 [facility] Comment on above: Performed By: #### C K, ALCO, CBCDIF, CMP, MG1 ####[place] [phone] MCHC (RBC) [Mass/Vol] 32.9 g/dL Normal 30.5-36.0 [facility] Comment on above: Performed By: #### C K, ALCO, CBCDIF, CMP, MG1 ####[place] [phone] MCV (RBC) [Entitic vol] 96.6 fL Normal 80.0-100.0 [facility] Comment on above: Performed By: #### C K, ALCO, CBCDIF, CMP, MG1 ####[place] [phone] Monocytes/100 WBC (Bld) 8.1 % Normal [facility] Comment on above: Performed By: #### C K, ALCO, CBCDIF, CMP, MG1 ####[place] [phone] Neutrophils/100 WBC (Bld) 46.8 % Normal [facility] Comment on above: Performed By: #### C K, ALCO, CBCDIF, CMP, MG1 ####[place] [phone] NRBCs 0.0 /100 WBC Normal 0 [facility] Comment on above: Performed By: #### C K, ALCO, CBCDIF, CMP, MG1 ####[address] [phone] Platelet mean volume (Bld) [Entitic vol] 10.7 fL Normal 9.0-12.7 [facility] Comment on above: Performed By: #### C K, ALCO, CBCDIF, CMP, MG1 ####[address] [phone] Platelets (Bld) [#/Vol] 183 10*3/uL Normal 150-400 [facility] Comment on above: Performed By: #### C K, ALCO, CBCDIF, CMP, MG1 ####[place] [phone] RBC (Bld) [#/Vol] 4.15 10*6/uL Normal 3.90-5.20 [facility] Comment on above: Performed By: #### C K, ALCO, CBCDIF, CMP, MG1 ####[place] [phone] WBC (Bld) [#/Vol] 6.79 10*3/uL Normal 3.70-11.00 [facility] Comment on above: Performed By: #### C K, ALCO, CBCDIF, CMP, MG1 ####[address] [phone] CKon 03-06-2021 CK [Catalytic activity/Vol] 103 U/L Normal 30-220 [facility] Comment on above: Performed By: #### C K, ALCO, CBCDIF, CMP, MG1 ####[address] [phone] CONSULTon 03-06-2021 CONSULT HNO ID: [id number] Author: Saravanan Yancey MD Service: Neurology General Author Type: Resident Type: Consults Filed: 03/06/2021 5:10 PM Note Text: ----- Attestation signed by Tim Sanches MD at 03/06/2021 9:16 PM [facility] STAFF PHYSICIAN NOTE OF PERSONAL INVOLVEMENT IN [...] her had just deplaned coming back from [place] x 3 days and she had not [...] [place] who is a family doctor in [facility], and she has noted hx of non-epileptic [...] Facility-Administered Medica (more content not included)... Normal [facility] CT BRAIN WO IVCONon 03-06-20 CT [...] Other: No depressed skull fracture is seen. Senior Fund Accountant (topogram) images: Non-diagnostic. IMPRESSION: No CT evidence of an acute intracranial abnormality. Other: details above. Stitcher Hand: MAVERICK Transcribe Date/Time: Mar 06 2021 3:13A Dictated by : JENN MORENO MD This examination was interpreted and the report reviewed and electronically signed by: JENN MORENO MD on Mar 06 2021 3:15AM EST [id number] Normal [facility] Comp Metabolic Panelon 03-06 Albumin [Mass/Vol] 4.6 g/dL Normal 3.5-5.0 [facility] Comment on above: Performed By: #### C K, ALCO, CBCDIF, CMP, MG1 ####[place] [phone] ALP [Catalytic activity/Vol] 67 U/L Normal 34-123 [facility] Comment on above: Performed By: #### C K, ALCO, CBCDIF, CMP, MG1 ####[place] [phone] ALT [Catalytic activity/Vol] 15 U/L Normal 0-45 [facility] Comment on above: Performed By: #### C K, ALCO, CBCDIF, CMP, MG1 ####[place] [phone] Anion gap [Moles/Vol] 10 mmol/L Normal 9-18 [facility] Comment on above: Performed By: #### C K, ALCO, CBCDIF, CMP, MG1 ####[address] AST [Catalytic activity/Vol] 15 U/L Normal 7-40 [facility] Comment on above: Performed By: #### C K, ALCO, CBCDIF, CMP, MG1 ####[place] [phone] Bilirubin [Mass/Vol] 0.2 mg/dL Normal 0.2-1.3 [facility] Comment on above: Performed By: #### C K, ALCO, CBCDIF, CMP, MG1 ####[place] [phone] Calcium [Mass/Vol] 9.3 mg/dL Normal 8.5-10.5 [facility] Comment on above: Performed By: #### C K, ALCO, CBCDIF, CMP, MG1 ####[place] [phone] Chloride [Moles/Vol] 106 mmol/L Normal 98-110 [facility] Comment on above: Performed By: #### C K, ALCO, CBCDIF, CMP, MG1 ####[place] [address] CO2 [Moles/Vol] 25 mmol/L Normal 23-32 [facility] Comment on above: Performed By: #### C K, ALCO, CBCDIF, CMP, MG1 ####[place] [phone] Creatinine [Mass/Vol] 0.99 mg/dL Normal 0.70-1.40 [facility] Comment on above: Performed By: #### C K, ALCO, CBCDIF, CMP, MG1 ####[place] [phone] eGFR- Amer. >60 Normal >60 [facility] Comment on above: Performed By: #### C K, ALCO, CBCDIF, CMP, MG1 ####[place] [address] eGFR-All Other Races >60 Normal >60 [facility] Comment on above: Result Comment: eGFR [...] #### C K, ALCO, CBCDIF, CMP, MG1 ####[place] [phone] Glucose [Mass/Vol] 103 mg/dL High 65-100 [facility] Comment on above: Performed By: #### C K, ALCO, CBCDIF, CMP, MG1 ####[place] [phone] Potassium [Moles/Vol] 3.9 mmol/L Normal 3.5-5.0 [facility] Comment on above: Performed By: #### C K, ALCO, CBCDIF, CMP, MG1 ####[place] [phone] Protein [Mass/Vol] 7.1 g/dL Normal 6.0-8.4 [facility] Comment on above: Performed By: #### C K, ALCO, CBCDIF, CMP, MG1 ####[place] [phone] Sodium [Moles/Vol] 141 mmol/L Normal 132-148 [facility] Comment on above: Performed By: #### C K, ALCO, CBCDIF, CMP, MG1 ####[place] [phone] Urea nitrogen [Mass/Vol] 12 mg/dL Normal 8-25 [facility] Comment on above: Performed By: #### C K, ALCO, CBCDIF, CMP, MG1 ####[place] [phone] ED NOTEon 03-06-2021 ED NOTE HNO ID: [id number] Author: Isabell Olivares RN Service: ? Author Type: Registered Nurse Type: ED Notes Filed: 03/06/2021 9:38 PM Note Text: Report to JUS Reis. [facility] ED NOTE HNO ID: [id number] Author: Isabell Olivares RN Service: ? Author Type: Registered Nurse Type: ED Notes Filed: 03/06/2021 7:16 PM Note Text: Pt up to bedside commode in room with steady gait, pt back to bed, siderails up x 2. [facility] ED NOTE HNO ID: [id number] Author: Isabell Olivares RN Service: ? Author Type: Registered Nurse Type: ED Notes Filed: 03/06/2021 6:32 PM Note Text: Meal tray arrives at the bedside. [facility] ED NOTE HNO ID: [id number] Author: Isabell Olivares RN Service: ? Author Type: Registered Nurse Type: ED Notes Filed: 03/06/2021 6:02 PM Note Text: Pt encouraged to call for dinner tray. Pt reports her headache has improved. [facility] ED NOTE HNO ID: [id number] Author: Isabell Olivares RN Service: ? Author Type: Registered Nurse Type: ED Notes Filed: 03/06/2021 5:18 PM Note Text: Pt states much improvement to her headache, resting in the room with her family, lights dimmed for comfort. [facility] ED NOTE HNO ID: [id number] Author: Isabell Olivares RN Service: ? Author Type: Registered Nurse Type: ED Notes Filed: 03/06/2021 2:48 PM Note Text: Pt reports no improvement in her headache, pt resting with lights off and warm blankets with family at bedside. No new orders at this time. Neurology paged. [facility] ED NOTE HNO ID: [id number] Author: Isabell Olivares RN Service: ? Author Type: Registered Nurse Type: ED Notes Filed: 03/06/2021 2:25 PM Note Text: MRI form faxed to MRI. Pt states she has claustrophobia with MRI, Neurology paged. [facility] ED NOTE HNO ID: [id number] Author: Isabell Olivares RN Service: ? Author Type: Registered Nurse Type: ED Notes Filed: 03/06/2021 2:04 PM Note Text: MRI Screening form given to the patient. [facility] ED NOTE HNO ID: [id number] Author: Isabell Olivares RN Service: ? Author Type: Registered Nurse Type: ED Notes Filed: 03/06/2021 1:56 PM Note Text: Pt assisted onto and off the bedpan. [facility] ED NOTE HNO ID: [id number] Author: Isabell Olivares RN Service: ? Author Type: Registered Nurse Type: ED Notes Filed: 03/06/2021 1:56 PM Note Text: Pt accucheck 100, meal tray at bedside. [facility] ED NOTE HNO ID: [id number] Author: Isabell Olivares RN Service: ? Author Type: Registered Nurse Type: ED Notes Filed: 03/06/2021 1:39 PM Note Text: Neurology at bedside with the patient. [facility] ED NOTE HNO ID: [id number] Author: Isabell Olivares RN Service: ? Author Type: Registered Nurse Type: ED Notes Filed: 03/06/2021 1:26 PM Note Text: Verbal order from Dr. Haile for 25mg PO benadryl [facility] ED NOTE HNO ID: [id number] Author: Isabell Olivares RN Service: ? Author Type: Registered Nurse Type: ED Notes Filed: 03/06/2021 11:20 AM Note Text: Pt resting in bed with seizure pads in place, pt family member sleeping in the bed with the patient, pt family member asked to not be in the bed with the patient for patient safety. [facility] ED NOTE HNO ID: [id number] Author: Jade Forte RN Service: ? Author Type: Registered Nurse Type: ED Notes Filed: 03/06/2021 11:13 AM Note Text: Patient report given to JUS Whyte [facility] ED NOTE HNO ID: [id number] Author: Isabell Olivares RN Service: ? Author Type: Registered Nurse Type: ED Notes Filed: 03/06/2021 11:02 AM Note Text: Assumed care of the patient at this time, received report from JUS Hansen. Plan of Care: - maintain patient comfort, safety and privacy - monitor for changes in condition - bed locked, low position, siderails up - call light within reach [facility] ED NOTE HNO ID: [id number] Author: Jade Forte RN Service: ? Author Type: Registered Nurse Type: ED Notes Filed: 03/06/2021 11:05 AM Note Text: Patient reports continuing to have headache. Spouse also reports had another few second seizure. House paged. [facility] ED NOTE HNO ID: [id number] Author: Jade Forte RN Service: ? Author Type: Registered Nurse Type: ED Notes Filed: 03/06/2021 10:11 AM Note Text: Called lab, breakfast tray ordered [facility] ED NOTE HNO ID: [id number] Author: Jade Forte RN Service: ? Author Type: Registered Nurse Type: ED Notes Filed: 03/06/2021 8:43 AM Note Text: Patient placed on bedpan. Patient and sheets soiled. Patient cleaned, linens changed [facility] ED NOTE HNO ID: [id number] Author: Jade Forte RN Service: ? Author Type: Registered Nurse Type: ED Notes Filed: 03/06/2021 8:31 AM Note Text: Answered patient call light. Patient requesting bedpan. Patient reports patient just had seizure . House paged and returned call. [facility] ED NOTE HNO ID: [id number] Author: Jade Forte RN Service: ? Author Type: Registered Nurse Type: ED Notes Filed: 03/06/2021 7:39 AM Note Text: Patient resting in bed. Declines breakfast at this time. Reports headache and nausea. House paged. [facility] ED NOTE HNO ID: [id number] Author: Jade Forte RN Service: ? Author Type: Registered Nurse Type: ED Notes Filed: 03/06/2021 7:07 AM Note Text: Patient report received from JUS Schuler [facility] ED PROV NOTEon 03-06-2021 ED PROV NOTE HNO ID: [id number] Author: Adeel Mauro MD Service: Hospital Medicine [...] (*) Negative (more content not included)... Normal [facility] Ethanolon 03-06-2021 Ethanol [Mass/Vol] mg/dL Normal <11 [facility] Comment on above: Performed By: #### C K, ALCO, CBCDIF, CMP, MG1 ####[facility] [place], [place] [id number] Expedited [id number] 03-06-20 21 SARS-CoV-2 (COVID-19) RNA AZ+probe Ql (Unsp spec) UPPER RESPIRATORY TRACT SWAB Normal [facility] Comment on above: Performed By: #### E XCOVD #### [place] [phone] SARS-CoV-2 (COVID-19) RNA AZ+probe Ql (Unsp spec) Negative for COVID19 (SARS CoV2) by RT-PCR or equivalent method. Normal Negative for COVID19 (SARS CoV2) by RT-PCR or equivalent method. [facility] Comment on above: Result Comment: This test has been authorized by FDA under an Emergency Use Authorization (EUA). Performed By: #### E XCOVD #### [place] [phone] HCG Qual, Urineon 03-06-2021 Beta HCG ( test) Ql (U) Negative Normal Negative [facility] Comment on above: Performed By: #### U HCG ####[place] [phone] HISTORY PHYSICALon HISTORY PHYSICAL HNO ID: [id number] Author: Adonis Mahoney MD Service: General Internal Medicine Author Type: Physician Type: HANDP Filed: 03/06/2021 6:51 AM Note Text: HISTORY AND PHYSICAL EXAMINATION * SERVICE DATE: 03/06/2021 PRIMARY CARE PHYSICIAN: Roxie Strickland NP Subjective CHIEF COMPLAINT: Seizures HPI: This is a 31 year old female with a hx of seizures, diabetes, anxiety, and conversion disorder, who reportedly had a seizure at the airport [facility]. She and her boyfriend had just arrived [...] March 06, 2021 TIME: 6:08 AM Normal [facility] Magnesiumon 03-06-2021 Magnesium [Mass/Vol] 2.1 mg/dL Normal 1.7-2.6 [facility] Comment on above: Performed By: #### C K, ALCO, CBCDIF, CMP, MG1 ####[place] [phone] TSHon 03-06-2021 TSH Qn 3.170 m[IU]/L Normal 0.270-4.200 [facility] Comment on above: Result Comment: If [...] E, et al. 2017 Guidelines of the [place] [employer] for the Diagnosis and Management of Thyroid Disease during and the . Thyroid, 2017:27:3:315-389. Performed By: #### T SH ####[place] [phone] Toxicology Screen,U[place] 03-06 Amphetamines, Urine Negative Normal Negative [facility] Comment on above: Result Comment: Cuto ff threshold at 1000 ng/mL. Performed By: #### U TOX2, UAWMIC #### [place] [phone] Barbiturates, Urine Negative Normal Negative [facility] Comment on above: Result Comment: Cuto ff threshold at 200 ng/mL. Performed By: #### U TOX2, UAWMIC #### [place] [phone] Benzodiazepines, Ur Negative Normal Negative [facility] Comment on above: Result Comment: Cuto ff threshold at 200 ng/mL. Performed By: #### U TOX2, UAWMIC #### [place] [address] Cannabinoids, Urine Negative Normal Negative [facility] Comment on above: Result Comment: Cuto ff threshold at 50 ng/mL. Performed By: #### U TOX2, UAWMIC #### [place] [address] Cocaine, Urine Negative Normal Negative [facility] Comment on above: Result Comment: Cuto ff threshold at 300 ng/mL. Performed By: #### U TOX2, UAWMIC #### [place] [address] Ethanol, Urine <11 Normal <11 [facility] Comment on above: Performed By: #### U TOX2, UAWMIC #### [place] [address] Opiates, Urine Negative Normal Negative [facility] Comment on above: Result Comment: Cuto ff threshold at 300 ng/mL. Performed By: #### U TOX2, UAWMIC #### [place] [address] Oxycodone, Urine Negative Normal Negative [facility] Comment on above: Result Comment: Cuto [...] on the same specimen through Client Services ([phone]) if contacted within 48 hours of initial testing. [1]Substance Abuse and Mental Health Services Administration (2012). Clinical Drug Testing in Primary Care Technical Assistance Publication Series 32. [facility], [place], p.10. Performed By: #### U TOX2, UAWMIC #### [place] [address] Phencyclidine, Urine Negative Normal Negative [facility] Comment on above: Result Comment: Cuto ff threshold at 25 ng/mL. Performed By: #### U TOX2, UAWMIC #### [place] [address] Urinalysis with Microscopico n 03-06-2021 Bacteria Rare Critically abnormal Negative [facility] Comment on above: Performed By: #### U TOX2, UAWMIC #### [place] [address] Bilirubin, Urine Negative Normal Negative [facility] Comment on above: Performed By: #### U TOX2, UAWMIC #### [place] [address] Clarity (U) Clear Normal Clear [facility] Comment on above: Performed By: #### U TOX2, UAWMIC #### [place] [address] Color (U) Colorless Critically abnormal Yellow [facility] Comment on above: Performed By: #### U TOX2, UAWMIC #### [place] [address] Comments SEE COMMENT Normal [facility] Comment on above: Result Comment: Micr oscopic Examination Performed Performed By: #### U TOX2, UAWMIC #### [place] [address] Epithelial cells LM Ql (Urine sed) SEE COMMENT Critically abnormal Negative [facility] Comment on above: Result Comment: Rare Squamous Epithelial Cells Performed By: #### U TOX2, UAWMIC #### [place] [address] Glucose Ql (U) Negative Normal Negative [facility] Comment on above: Performed By: #### U TOX2, UAWMIC #### [place] [phone] Hemoglobin/Blood,Ur Negative Normal Negative [facility] Comment on above: Performed By: #### U TOX2, UAWMIC #### [place] [address] Ketones Ql (U) Negative Normal Negative [facility] Comment on above: Performed By: #### U TOX2, UAWMIC #### [place] [address] Leukest Negative Normal Negative [facility] Comment on above: Performed By: #### U TOX2, UAWMIC #### [place] [address] Nitrite Ql (U) Negative Normal [facility] Comment on above: Performed By: #### U TOX2, UAWMIC #### [place] [address] pH (U) 7.0 [pH] Normal 5.0-8.0 [facility] Comment on above: Performed By: #### U TOX2, UAWMIC #### [place] [address] Protein, Urine Negative Normal [facility] Comment on above: Performed By: #### U TOX2, UAWMIC #### [place] [address] RBC Rare Critically abnormal Negative [facility] Comment on above: Performed By: #### U TOX2, UAWMIC #### [place] [id number] Specific [place], Ur 1.007 Normal 1.005-1.030 [facility] Comment on above: Performed By: #### U TOX2, UAWMIC #### [place] [address] Urobilinogen (U) [Mass/Vol] Negative Normal Negative [facility] Comment on above: Performed By: #### U TOX2, UAWMIC #### [facility] [address] [place] [address] WBC Rare Critically abnormal Negative [facility] Comment on above: Performed By: #### U TOX2, UAWMIC #### [facility] [address] [place] [address] Vital Signs Date Time Vital Sign Value Performing Clinician Facility 01-29-2023 10:15-0400 Body height 165.1 cm Mario Pee Other [facility] Other 01-29-2023 10:15-0400 Body mass index (BMI) [Ratio] 37.27 kg/m2 Mario Pee Other [facility] Other 01-29-2023 10:15-0400 Body temperature 96.9 [degF] Mario Pee Other [facility] Other 01-29-2023 10:15-0400 Body weight 101.61 kg Mario Pee Other [facility] Other 01-29-2023 10:15-0400 Diastolic blood pressure 70 mm[Hg] Mario Pee Other [facility] Other 01-29-2023 10:15-0400 Respiratory rate 20 /min Mario Pee Other [facility] Other 01-29-2023 10:15-0400 SaO2% (BldA) [Mass fraction] 99 % Mario Pee Other [facility] Other 01-29-2023 10:15-0400 Systolic blood pressure 110 mm[Hg] Mario Pee Other [facility] Other 12-12-2022 15:15-0400 Body height 165.1 cm Mario Pee Other [facility] Other 12-12-2022 15:15-0400 Body mass index (BMI) [Ratio] 37.77 kg/m2 Mario Pee Other [facility] Other 12-12-2022 15:15-0400 Body weight 102.97 kg Mario Pee Other [facility] Other 12-12-2022 15:15-0400 Diastolic blood pressure 60 mm[Hg] Mario Pee Other [facility] Other 12-12-2022 15:15-0400 Respiratory rate 20 /min Mario Pee Other [facility] Other 12-12-2022 15:15-0400 Systolic blood pressure 102 mm[Hg] Mario Pee Other [facility] Other 11-23-2022 01:18-0400 Diastolic blood pressure 83 mm[Hg] Kaylinn Dokken [facility] 11-23-2022 01:18-0400 Heart rate 64 /min Kaylinn Dokken [facility] 11-23-2022 01:18-0400 Mean blood pressure 94 mm[Hg] Kaylinn Dokken [facility] 11-23-2022 01:18-0400 Respiratory rate 19 /min Kaylinn Dokken [facility] 11-23-2022 01:18-0400 SaO2% (BldA) [Mass fraction] 97 % Kaylinn Dokken [facility] 11-23-2022 01:18-0400 Systolic blood pressure 117 mm[Hg] Kaylinn Dokken [facility] 11-23-2022 01:14-0400 Diastolic blood pressure 85 mm[Hg] Kaylinn Dokken [facility] 11-23-2022 01:14-0400 Heart rate 65 /min Kaylinn Dokken [facility] 11-23-2022 01:14-0400 Mean blood pressure 98 mm[Hg] Kaylinn Dokken [facility] 11-23-2022 01:14-0400 Respiratory rate 18 /min Kaylinn Dokken [facility] 11-23-2022 01:14-0400 SaO2% (BldA) [Mass fraction] 98 % Kaylinn Dokken [facility] 11-23-2022 01:14-0400 Systolic blood pressure 124 mm[Hg] Kaylinn Dokken [facility] 11-23-2022 00:00-0400 Body temperature 98.24 [degF] Kaylinn Dokken [facility] 11-23-2022 00:00-0400 Diastolic blood pressure 63 mm[Hg] Kaylinn Dokken [facility] 11-23-2022 00:00-0400 Mean blood pressure 77 mm[Hg] Kaylinn Dokken [facility] 11-23-2022 00:00-0400 SaO2% (BldA) [Mass fraction] 99 % Kaylinn Dokken [facility] 11-23-2022 00:00-0400 Systolic blood pressure 105 mm[Hg] Sonam Montoya [facility] 11-22-2022 22:00-0400 Heart rate 63 /min Sonam Montoya [facility] 11-22-2022 20:59-0400 Body temperature 98.06 [degF] Sonam Monotya [facility] 11-22-2022 20:59-0400 Respiratory rate 19 /min Sonam Montoya [facility] 11-14-2022 13:15-0400 Body height 165.1 cm Mario Pee Other [facility] Other 11-14-2022 13:15-0400 Body mass index (BMI) [Ratio] 37.77 kg/m2 Mario Pee Other [facility] Other 11-14-2022 13:15-0400 Body temperature 97.8 [degF] Mario Pee Other [facility] Other 11-14-2022 13:15-0400 Body weight 102.97 kg Mario Pee Other [facility] Other 11-14-2022 13:15-0400 Diastolic blood pressure 76 mm[Hg] Mario Pee Other [facility] Other 11-14-2022 13:15-0400 Respiratory rate 20 /min Mario Pee Other [facility] Other 11-14-2022 13:15-0400 SaO2% (BldA) [Mass fraction] 97 % Mario Pee Other [facility] Other 11-14-2022 13:15-0400 Systolic blood pressure 100 mm[Hg] Mario Pee Other [facility] Other 10-15-2022 14:45-0400 Body height 165.1 cm Mario Pee Other [facility] Other 10-15-2022 14:45-0400 Body mass index (BMI) [Ratio] 38.44 kg/m2 Mario Pee Other [facility] Other 10-15-2022 14:45-0400 Body temperature 96 [degF] Mario Pee Other [facility] Other 10-15-2022 14:45-0400 Body weight 104.78 kg Mario Pee Other [facility] Other 10-15-2022 14:45-0400 Diastolic blood pressure 78 mm[Hg] Mario Pee Other [facility] Other 10-15-2022 14:45-0400 Respiratory rate 20 /min Mario Pee Other [facility] Other 10-15-2022 14:45-0400 SaO2% (BldA) [Mass fraction] 97 % Mario Pee Other [facility] Other 10-15-2022 14:45-0400 Systolic blood pressure 122 mm[Hg] Mario Pee Other [facility] Other 09-17-2022 13:00-0400 Body height 165.1 cm Mario Pee Other [facility] Other 09-17-2022 13:00-0400 Body mass index (BMI) [Ratio] 39.27 kg/m2 Mario Pee Other [facility] Other 09-17-2022 13:00-0400 Body temperature 96.9 [degF] Mario Pee Other [facility] Other 09-17-2022 13:00-0400 Body weight 107.05 kg Mario Pee Other [facility] Other 09-17-2022 13:00-0400 Diastolic blood pressure 78 mm[Hg] Mario Pee Other [facility] Other 09-17-2022 13:00-0400 Respiratory rate 20 /min Mario Pee Other [facility] Other 09-17-2022 13:00-0400 SaO2% (BldA) [Mass fraction] 96 % Mario Pee Other [facility] Other 09-17-2022 13:00-0400 Systolic blood pressure 124 mm[Hg] Mario Pee Other [facility] Other 05-02-2022 20:23-0500 Body temperature 98 [degF] DO Mario Pee Work Phone: [facility] 05-02-2022 20:23-0500 Diastolic blood pressure 78 mm[Hg] DO Mario Pee Work Phone: [facility] 05-02-2022 20:23-0500 Heart rate 104 /min DO Mario Pee Work Phone: [facility] 05-02-2022 20:23-0500 Respiratory rate 18 /min DO Mario Pee Work Phone: [facility] 05-02-2022 20:23-0500 SaO2% (BldA) [Mass fraction] 96 % DO Mario Pee Work Phone: [facility] 05-02-2022 20:23-0500 Systolic blood pressure 125 mm[Hg] DO Mario Pee Work Phone: [facility] 05-02-2022 16:20-0500 Inhaled oxygen flow rate 3 L/min DO Mario Pee Work Phone: [facility] 05-02-2022 06:52-0500 Body height 165.1 cm DO Mario Pee Work Phone: [facility] 05-02-2022 06:52-0500 Body mass index (BMI) [Ratio] 37.9 kg/m2 DO Mario Pee Work Phone: [facility] 05-02-2022 06:52-0500 Body weight 103.4 kg DO Mairo Pee Work Phone: [facility] 04-24-2022 18:09-0500 Body height 165.1 cm DO Mario Pee Work Phone: [facility] 04-24-2022 18:09-0500 Body temperature 99.1 [degF] DO Mario Pee Work Phone: [facility] 04-24-2022 18:09-0500 Body weight 104.2 kg DO Mario Pee Work Phone: [facility] 04-24-2022 18:09-0500 Diastolic blood pressure 88 mm[Hg] DO Mario Pee Work Phone: [facility] 04-24-2022 18:09-0500 Heart rate 99 /min DO Mario Pee Work Phone: [facility] 04-24-2022 18:09-0500 Respiratory rate 19 /min DO Mario Pee Work Phone: [facility] 04-24-2022 18:09-0500 SaO2% (BldA) [Mass fraction] 96 % DO Mario Pee Work Phone: [facility] 04-24-2022 18:09-0500 Systolic blood pressure 124 mm[Hg] DO Mario Pee Work Phone: [facility] 04-17-2022 15:00-0500 Body height 165.1 cm Mario Pee Other [facility] Other 04-17-2022 15:00-0500 Body mass index (BMI) [Ratio] 38.77 kg/m2 Mario Pee Other [facility] Other 04-17-2022 15:00-0500 Body temperature 97.2 [degF] Mario Pee Other [facility] Other 04-17-2022 15:00-0500 Body weight 105.69 kg Mario Pee Other [facility] Other 04-17-2022 15:00-0500 Diastolic blood pressure 82 mm[Hg] Mario Pee Other [facility] Other 04-17-2022 15:00-0500 Respiratory rate 20 /min Mario Pee Other [facility] Other 04-17-2022 15:00-0500 SaO2% (BldA) [Mass fraction] 98 % Mario Pee Other [facility] Other 04-17-2022 15:00-0500 Systolic blood pressure 124 mm[Hg] Mario Pee Other [facility] Other 04-10-2022 08:44-0500 Body height 165.1 cm DO Mario Pee Work Phone: [facility] 04-10-2022 08:44-0500 Body temperature 98.3 [degF] DO Mario Pee Work Phone: [facility] 04-10-2022 08:44-0500 Body weight 105 kg DO Mario Pee Work Phone: [facility] 04-10-2022 08:44-0500 Diastolic blood pressure 82 mm[Hg] DO Mario Pee Work Phone: [facility] 04-10-2022 08:44-0500 Heart rate 80 /min DO Mario Pee Work Phone: [facility] 04-10-2022 08:44-0500 Respiratory rate 16 /min DO Mario Pee Work Phone: [facility] 04-10-2022 08:44-0500 SaO2% (BldA) [Mass fraction] 98 % DO Mario Pee Work Phone: [facility] 04-10-2022 08:44-0500 Systolic blood pressure 125 mm[Hg] DO Mario Pee Work Phone: [facility] 12-12-2021 14:45-0400 Body height 165.1 cm Mario Pee Other [facility] Other 12-12-2021 14:45-0400 Body mass index (BMI) [Ratio] 37.27 kg/m2 Mario Pee Other [facility] Other 12-12-2021 14:45-0400 Body temperature 96.9 [degF] Mario Pee Other [facility] Other 12-12-2021 14:45-0400 Body weight 101.61 kg Mario Pee Other [facility] Other 12-12-2021 14:45-0400 Diastolic blood pressure 80 mm[Hg] Mario Pee Other [facility] Other 12-12-2021 14:45-0400 Respiratory rate 20 /min Mario Pee Other [facility] Other 12-12-2021 14:45-0400 SaO2% (BldA) [Mass fraction] 98 % Mario Pee Other [facility] Other 12-12-2021 14:45-0400 Systolic blood pressure 124 mm[Hg] Mario Pee Other [facility] Other 10-12-2021 09:30-0400 Body height 165.1 cm Mario Pee Other [facility] Other 10-12-2021 09:30-0400 Body mass index (BMI) [Ratio] 37.27 kg/m2 Mario Pee Other [facility] Other 10-12-2021 09:30-0400 Body temperature 98.3 [degF] Mario Pee Other [facility] Other 10-12-2021 09:30-0400 Body weight 101.61 kg Mario Pee Other [facility] Other 10-12-2021 09:30-0400 Diastolic blood pressure 80 mm[Hg] Mario Pee Other [facility] Other 10-12-2021 09:30-0400 Respiratory rate 18 /min Mario Pee Other [facility] Other 10-12-2021 09:30-0400 Systolic blood pressure 110 mm[Hg] Mario Pee Other [facility] Other 09-27-2021 17:00-0400 Body height 165.1 cm Mario Pee Other [facility] Other 09-27-2021 17:00-0400 Body mass index (BMI) [Ratio] 38.1 kg/m2 Mario Pee Other [facility] Other 09-27-2021 17:00-0400 Body temperature 97.6 [degF] Mario Pee Other [facility] Other 09-27-2021 17:00-0400 Body weight 103.87 kg Mario Pee Other [facility] Other 09-27-2021 17:00-0400 Diastolic blood pressure 62 mm[Hg] Mario Pee Other [facility] Other 09-27-2021 17:00-0400 Respiratory rate 20 /min Mario Pee Other [facility] Other 09-27-2021 17:00-0400 SaO2% (BldA) [Mass fraction] 97 % Mario Pee Other [facility] Other 09-27-2021 17:00-0400 Systolic blood pressure 122 mm[Hg] Mario Pee Other [facility] Other 05-30-2021 18:15-0500 Body height 165.1 cm Mario Pee Other [facility] Other 05-30-2021 18:15-0500 Body mass index (BMI) [Ratio] 37.6 kg/m2 Mario Pee Other [facility] Other 05-30-2021 18:15-0500 Body temperature 97.3 [degF] Mario Pee Other [facility] Other 05-30-2021 18:15-0500 Body weight 102.51 kg Mario Pee Other [facility] Other 05-30-2021 18:15-0500 Diastolic blood pressure 82 mm[Hg] Mario Pee Other [facility] Other 05-30-2021 18:15-0500 Respiratory rate 20 /min Mario Pee Other [facility] Other 05-30-2021 18:15-0500 SaO2% (BldA) [Mass fraction] 97 % Mario Pee Other [facility] Other 05-30-2021 18:15-0500 Systolic blood pressure 122 mm[Hg] Mario Pee Other [facility] Other 05-02-2021 18:30-0500 Body height 165.1 cm Mario Pee Other [facility] Other 05-02-2021 18:30-0500 Body mass index (BMI) [Ratio] 36.77 kg/m2 Mario Pee Other [facility] Other 05-02-2021 18:30-0500 Body temperature 97.6 [degF] Mario Pee Other [facility] Other 05-02-2021 18:30-0500 Body weight 100.25 kg Mario Pee Other [facility] Other 05-02-2021 18:30-0500 Diastolic blood pressure 70 mm[Hg] Mario Pee Other [facility] Other 05-02-2021 18:30-0500 Respiratory rate 20 /min Mario Pee Other [facility] Other 05-02-2021 18:30-0500 SaO2% (BldA) [Mass fraction] 96 % Mario Pee Other [facility] Other 05-02-2021 18:30-0500 Systolic blood pressure 118 mm[Hg] Mario Pee Other [facility] Other Encounters Encounter Date Encounter Type Care Provider Facility Start: 03-21-2023 End: 03-21-2023 ambulatory Mario Pee Other [facility] Other Start: 03-21-2023 Telephone encounter Mario Pee [facility] Start: 02-13-2023 End: 02-13-2023 ambulatory Mario Pee Other [facility] Other Start: 02-13-2023 Telephone encounter Mario Pee [facility] Start: 01-29-2023 End: 01-29-2023 ambulatory Mario Pee Other [facility] Other Start: 01-29-2023 Office outpatient visit 15 minutes Mario Pee [facility] Start: 01-21-2023 End: 01-21-2023 ambulatory Mario Pee Other [facility] Other Start: 01-21-2023 Telephone encounter Mario Pee [facility] Start: 01-01-2023 End: 01-02-2023 ambulatory Erin Chavez Facility:[facility] Start: 01-01-2023 End: 01-01-2023 Patient encounter procedure Erin Chavez [facility] Start: 12-20-2022 End: 12-20-2022 ambulatory Mario Pee Other [facility] Other Start: 12-20-2022 Telephone encounter Mario Pee [facility] Start: 12-12-2022 End: 12-12-2022 ambulatory Mario Pee Other [facility] Other Start: 12-12-2022 Office outpatient visit 15 minutes Mario Pee [facility] Start: 11-22-2022 End: 11-23-2022 Emergency department patient visit DO Sonam Montoya [facility] Start: 11-22-2022 End: 11-23-2022 Emergency department patient visit Sonam Montoya [facility] Start: 11-20-2022 End: 11-20-2022 ambulatory Mario Pee Other [facility] Other Start: 11-20-2022 Telephone encounter Mario Pee [facility] Start: 11-14-2022 End: 11-14-2022 ambulatory Mario Pee Other [facility] Other Start: 11-14-2022 Office outpatient visit 15 minutes Mario Pee [facility] Start: 10-15-2022 End: 10-15-2022 ambulatory Mario Pee Other [facility] Other Start: 10-15-2022 Office outpatient visit 25 minutes Mario Pee [facility] Start: 10-09-2022 End: 10-09-2022 ambulatory Mario Pee Other [facility] Other Start: 10-09-2022 Telephone encounter Mario Pee [facility] Start: 09-17-2022 End: 09-17-2022 ambulatory Mario Pee Other [facility] Other Start: 09-17-2022 Office outpatient visit 15 minutes Mario Pee [facility] Start: 09-17-2022 Telephone encounter Mario Pee [facility] Start: 08-13-2022 End: 08-14-[address] MARIO GLASGOW Facility: Start: 08-12-2022 End: 08-13-[address] MARIO M PEE Facility:[facility] Start: 08-09-2022 End: 08-09-2022 ambulatory Mario Pee Other [facility] Other Start: 08-09-2022 Telephone encounter Mario Pee [facility] Start: 07-08-2022 End: 07-08-2022 ambulatory Vi Benites Other [facility] Other Start: 07-08-2022 Telephone encounter Vi Mackwood [facility] Start: 06-17-2022 End: 06-17-2022 ambulatory Mario Pee Other [facility] Other Start: 06-17-2022 Telephone encounter Mario Pee [facility] Start: 06-14-2022 End: 06-14-2022 ambulatory Mario M. Pee Facility:[facility] Start: 06-14-2022 End: 06-14-2022 ambulatory DO Mario M. Pee Work Phone: [facility] Work Phone: Start: 06-14-2022 End: 06-14-2022 Departed Referred DO Mario Pee Work Phone: [facility] [place] Work Phone: Start: 06-07-2022 End: 06-07-2022 ambulatory Mario Pee Other [facility] Other Start: 06-07-2022 Telephone encounter Mario Pee [facility] Start: 05-09-2022 End: 05-09-2022 ambulatory Mario Pee Other [facility] Other Start: 05-09-2022 Telephone encounter Mario Pee [facility] Start: 05-06-2022 End: 05-06-2022 ambulatory Mario Pee Other [facility] Other Start: 05-06-2022 Telephone encounter Mario Pee [facility] Start: 05-02-2022 End: 05-03-2022 ambulatory Rell Garcia Facility:[facility] Start: 05-02-2022 End: 05-02-2022 Admission to same day surgery center DO Mario Pee Work Phone: [facility] [place] Start: 05-02-2022 End: 05-02-2022 ambulatory DO Mario M. Pee Work Phone: [facility] Work Phone: Start: 04-25-2022 Telephone encounter Mario Pee [facility] Start: 04-25-2022 End: 04-25-2022 Departed Referred DO Mario Pee Work Phone: [facility] [place] Start: 04-25-2022 End: 04-25-2022 ambulatory Rell Garcia [facility] [employer] Other Start: 04-24-2022 End: 04-24-2022 Emergency department patient visit Arun Alyse Ervin Facility:[facility] Start: 04-24-2022 End: 04-24-2022 Emergency department patient visit DO Mario Pee Work Phone: [facility] Work Phone: Start: 04-23-2022 End: 04-23-2022 ambulatory Mario M. Pee Facility:[facility] Start: 04-23-2022 End: 04-23-2022 Patient encounter procedure DO Mario Pee Work Phone: [facility] Work Phone: Start: 04-17-2022 End: 04-17-2022 ambulatory Mario Pee Other [facility] Other Start: 04-17-2022 Office outpatient visit 15 minutes Mario Pee [facility] Start: 04-17-2022 Telephone encounter Mario Pee [facility] Start: 04-16-2022 End: 04-16-2022 ambulatory Mario Pee Other [facility] Other Start: 04-16-2022 Telephone encounter Mario Pee [facility] Start: 04-10-2022 End: 04-10-2022 ambulatory Mario M. Pee Facility:[facility] Start: 04-10-2022 End: 04-10-2022 ambulatory DO Mario M. Pee Work Phone: [facility] Work Phone: Start: 04-10-2022 End: 04-10-2022 Patient encounter procedure DO Mario Pee Work Phone: [id number] Start: 04-09-2022 End: 04-09-2022 ambulatory Mario Pee Other [facility] Other Start: 04-09-2022 Telephone encounter Mario Pee [facility] Start: 04-08-2022 End: 04-08-2022 ambulatory Mario Pee Other [facility] Other Start: 04-08-2022 Telephone encounter Mario Pee [facility] Start: 03-28-2022 End: 03-30-[address] MARIO M PEE Facility: Start: 03-06-2022 End: 03-06-2022 ambulatory Mario Pee Other [facility] Other Start: 03-06-2022 Telephone encounter Mario Pee [facility] Start: 02-10-2022 End: 02-10-[address] MARIO Cullen PEE Facility:[facility] Start: 02-04-2022 End: 02-04-2022 ambulatory Mario Pee Other [facility] Other Start: 02-04-2022 Telephone encounter Mario Pee [facility] Start: 01-29-2022 End: 01-29-2022 ambulatory Mario Pee Other [facility] Other Start: 01-29-2022 Telephone encounter Mario Pee [facility] Start: 01-28-2022 End: 01-28-[address] MARIO Cullen PEE Facility:[facility] Start: 12-25-2021 End: 12-25-2021 ambulatory Mario Pee Other [facility] Other Start: 12-25-2021 Telephone encounter Mario Pee [facility] Start: 12-12-2021 End: 12-12-2021 ambulatory Mario Epe Other [facility] Other Start: 12-12-2021 Office outpatient visit 15 minutes Mario Pee [facility] Start: 11-26-2021 End: 11-26-2021 ambulatory Mario Pee Other [facility] Other Start: 11-26-2021 Telephone encounter Mario Pee [facility] Start: 11-21-2021 End: 11-21-2021 ambulatory Mario Pee Other [facility] Other Start: 11-21-2021 Telephone encounter Mario Pee [facility] Start: 11-05-2021 End: 11-05-2021 ambulatory Mario Pee Other [facility] Other Start: 11-05-2021 Telephone encounter Mario Pee [facility] Start: 10-29-2021 End: 10-29-[address] MARIO M PEE Facility: Start: 10-23-2021 End: 10-23-2021 ambulatory Mario Pee Other [facility] Other Start: 10-23-2021 Telephone encounter Mario Pee [facility] Start: 10-19-2021 End: 10-19-2021 ambulatory Mario Pee Other [facility] Other Start: 10-19-2021 Telephone encounter Mario Pee [facility] Start: 10-12-2021 End: 10-12-2021 ambulatory Mario Pee Other [facility] Other Start: 10-12-2021 Office outpatient visit 15 minutes Mario Pee [facility] Start: 10-12-2021 Telephone encounter Mario Pee [facility] Start: 10-01-2021 End: 10-01-2021 ambulatory Mario Pee Other [facility] Other Start: 10-01-2021 Telephone encounter Mario Pee [facility] Start: 09-27-2021 End: 09-27-2021 ambulatory Mario Pee Other [facility] Other Start: 09-27-2021 Office outpatient visit 15 minutes Mario Pee [facility] Start: 09-18-2021 End: 09-18-2021 ambulatory Mario Pee Other [facility] Other Start: 09-18-2021 Telephone encounter Mario Pee [facility] Start: 09-10-2021 End: 09-10-2021 ambulatory Mario Pee Other [facility] Other Start: 09-10-2021 Telephone encounter Mario Pee [facility] Start: 09-05-2021 End: 09-05-2021 Patient encounter procedure Erin Chavez [facility] Start: 08-13-2021 End: 08-13-2021 ambulatory Mario Pee Other [facility] Other Start: 08-13-2021 Telephone encounter Mario Pee [facility] Start: 08-01-2021 End: 08-01-2021 ambulatory Mario Pee Other [facility] Other Start: 08-01-2021 Telephone encounter Mario Pee [facility] Start: 07-06-2021 End: 07-06-2021 ambulatory Vi Martinawood Other [facility] Other Start: 07-06-2021 Telephone encounter Vi Easterwood [facility] Start: 06-18-2021 End: 06-18-2021 ambulatory Mario Pee Other [facility] Other Start: 06-18-2021 Telephone encounter Mario Pee [facility] Start: 06-08-2021 End: 06-08-2021 ambulatory Mario Pee Other [facility] Other Start: 06-08-2021 Telephone encounter Mario Pee [facility] Start: 05-30-2021 End: 05-30-2021 ambulatory Mario Pee Other [facility] Other Start: 05-30-2021 Office outpatient visit 15 minutes Mario Pee [facility] Start: 05-21-2021 End: 05-21-2021 ambulatory Mario Pee Other [facility] Other Start: 05-21-2021 Telephone encounter Mario Pee [facility] Start: 05-09-2021 End: 05-09-2021 ambulatory Mario Pee Other [facility] Other Start: 05-09-2021 Telephone encounter Mario Pee [facility] Start: 05-08-2021 End: 05-08-2021 ambulatory Mario Pee Other [facility] Other Start: 05-08-2021 Telephone encounter Mario Pee [facility] Start: 05-02-2021 End: 05-02-2021 ambulatory Mario Pee Other [facility] Other Start: 05-02-2021 Office outpatient visit 15 minutes Mario Pee [facility] Procedures Date Procedure Procedure Detail Performing Clinician Start: 06-14-2022 Urine culture DO Mario R uggles Work Phone: Start: 05-02-2022 Antibody screen Mario Ru ggles Comment on above: Result Comment: PERF ORMED BY: [facility] [address] [place] [address] PATHOLOGIST CLOTH DOUBLING MACHINE OPERATOR LEV HERNÁNDEZ M.D. Start: 05-02-2022 Total hysterectomy v ia vaginal approach DO Mario Pee Work Phone: Start: 04-23-2022 SARS Antigen (LFIA) DO Mario Pee Work Phone: Start: 04-10-2022 Antibody screen Maroi Ru gggiulia Comment on above: Order Comment: Date of Surgery: [id number] Result Comment: PERF ORMED BY: [facility] [address] PATHOLOGIST CLOTH DOUBLING MACHINE OPERATOR LEV HERNÁNDEZ M.D. Start: 04-10-2022 Urine culture [...] Date Care Activity Detail Author Start: 05-02-2022 [facility] Start: 04-25-2022 Total hysterectomy v ia vaginal approach OR Vag Hyster Lap Assist TLH/LAVH (Not Applicable) [facility] Start: 04-24-[address] [facility] Start: 04-24-2022 Hepatic function panel [facility] Start: 04-24-2022 Lipase measurement [facility] Start: 04-24-2022 [facility] Bacteria identified in Urine by Culture [facility] Bacteria identified in Urine by Culture [facility] Patient referral [facility] Medical [facility] Work Phone: Immunizations Immunization Date Immunization Notes Care Provider Fa cility NEGATED: Highlighted row has not occurred!05-16-2021 SARS-CoV-2 (COVID-19) Ad26 vaccine, recombinant Erin Chavez [facility] Payers Date Payer Category Payer Self-pay [id number] 1990 Unknown [id number] 1989 Unknown [id number] [id number] 1989 Unknown [id number] 2.16.840.1.658106.3.579.2.593 1989 Unknown [id number] 2.16.840.1.462300.3.579.2.593 1989 Unknown [id number] 2.16.840.1.101691.3.579.2.593 1989 Unknown [id number] 2.16.840.1.118278.3.579.2.593 1989 Unknown [id number] 2.16.840.1.702781.3.579.2.593 1989 Unknown [id number] 2.16.840.1.908527.3.579.2.727 1989 Unknown [id number] 2.16.840.1.874668.3.579.2.727 1960 Medicaid [id number] 1960 Unknown [id number] 2.1 [id number] Unknown Regular Auto/Liability [id number] Unknown [id number] 2.16.840.1.122708.3.579.2.531 Unknown [id number] 2.16.840.1.842840.3.579.2.531 Unknown [id number] 2.16.840.1.307123.3.579.2.531 Unknown [id number] 2.16.840.1.762084.3.579.2.531 Unknown [id number] 2.16.840.1.953436.3.579.2.531 Unknown [id number] 2.16.840.1.393834.3.579.2.531 Social History Date Type Detail Facility Start: 05-16-2021 End: 05-02-2022 Tobacco smoking status Never smoked tobacco (finding) [facility] Other Tobacco smoking status Never [facility] Sex Assigned At Female [facility] Other Start: 1990 Sex Assigned At Female F [facility] Goals Date Patient Goal Desired Activity /State Functional Status Date Assessment Result Facility 11-22-2022 Functional Status N/A [facility] Clinical Notes 03-06-2021 to 02-13-2023 Note Date & Type Note Facility 02-13-2023 Evaluation note Encounter Date Diagnosis Assessment Notes Jan, Anxiety (ICD-10 - F41.9) [facility] Other 10-11-2023 Evaluation note* Encounter Date Diagnosis Assessment Notes Treatment Notes Treatment Clinical Notes Jan, BMI 37.0-37.9, adult (ICD-10 - Z68.37) [facility] - eRX sent. We did discuss that she needs to do a better job with the monitoring of her diet. If her weight loss does not improve, we must consider withholding medication. She voices agreement and understanding. [facility] Other 10-03-2023 Evaluation note* Encounter Date Diagnosis Assessment Notes Treatment Notes Treatment Clinical Notes Jan, Anxiety (ICD-10 - F41.9) [facility] Other 09-01-2023 Evaluation note* Encounter Date Diagnosis Assessment Notes Treatment Notes Treatment Clinical Notes Dec, Anxiety (ICD-10 - F41.9) [facility] Other 08-24-2023 Evaluation note* Encounter Date Diagnosis Assessment Notes Treatment Notes Treatment Clinical Notes Nov, BMI 37.0-37.9, adult (ICD-10 - Z68.37) [facility] sent. No other change today. We will recheck in 1 month. [facility] Other 08-05-2023 Hospital Discharge instructions Patient Education [...] Follow these instructions at home: Medicines Take njyw-jtx-kptknuw and prescription medicines only as told by your health care provider. Ask your health care provider if the medicine prescribed to you: ?Requires you to avoid driving or using machinery. ?Can cause constipation. You may need to take these actions to prevent or treat constipation: ?Drink enough fluid to keep your urine pale yellow. ?Take aoxz-ucu-mbiggam or prescription medicines. ?Eat foods that are [...] is important. Where to find more information [employer]: www.acog.org Office [...] provider. Document Revised: 11/08/2020 Document Reviewed: 11/08/2020 [place] [facility] Patient Education 2022 [employer]. 11/23/2022 01:20:40 Laparoscopic Lysis of Abdominal Adhesions [...] including vitamins, herbs, eye drops, creams, and jmhh-fjs-xbkvvbc medicines. Any problems you or family members [...] provider tells you to take them. Taking igyj-mny-fewxubt medicines, vitamins, herbs, and supplements. General instructions [...] provider. Document Revised: 12/15/2020 Document Reviewed: 12/15/2020 [place] [facility] Patient Education 2022 [employer]. 11/23/2022 01:20:40 Adhesions, Noxe-uf-Blbv Adhesions Adhesions are strings of tissue that [...] needed. Follow these instructions at home: Take zhma-qxc-qnlireg and prescription medicines only as told by [...] Treatment may include medicines and surgery. Take ygtg-cke-jvdqyin and prescription medicines only as told by your doctor. This information is not intended to replace advice given to you by your health care provider. Make sure you discuss any questions you have with your health care provider. Document Revised: 12/15/2020 Document Reviewed: 12/15/2020 [place] [facility] Patient Education 2022 [employer]. 11/23/2022 01:20:40 Abdominal Pain, Adult, Jloq-fz-Udfl Abdominal Pain, Adult Many things can cause belly (abdominal) pain. Most times, belly pain is not dangerous. Many cases of belly pain can be watched and treated at home. Sometimes, though, belly pain is serious. Your doctor will try to find the cause of your belly pain. Follow these instructions at home: Medicines Take ogck-qlc-iwdmbet and prescription medicines only as told by [...] your belly pain for any changes. Take rmzz-nus-iacyngb and prescription medicines only as told by [...] provider. Document Revised: 08/16/2019 Document Reviewed: 08/16/2019 [place] [facility] Patient Education 2022 [employer]. Follow Up Care 11/22/2022 19:01:50 With:MARIO GLASGOW Address: [facility] [place] [id number] Business (1) When:11/26/2022 [facility]07-27-2023 Evaluation note* Encounter Date Diagnosis Assessment Notes Treatment Notes Treatment Clinical Notes Oct, BMI 37.0-37.9, adult (ICD-10 - Z68.37) [facility] - eRX sent. Call with any concerns. [facility] Other 06-27-2023 Evaluation note* Encounter Date Diagnosis [...] We will see patient back for follow-up. [facility] Other 05-30-2023 Evaluation note* Encounter Date Diagnosis Assessment Notes Treatment Notes Treatment Clinical Notes August, BMI 39.0-39.9,adult (ICD-10 - Z68.39) [facility] - e[facility] sent. Call with any concern. [facility] Other 05-30-2023 Evaluation note* Encounter Date Diagnosis Assessment Notes Treatment Notes Treatment Clinical Notes August, BMI 39.0-39.9,adult (ICD-10 - Z68.39) [facility] Other 12-28-2022 Evaluation note* Encounter Date Diagnosis [...] year, with out any concerns with anesthesia. [facility] Other 09-06-2022 Evaluation note* Encounter Date Diagnosis Assessment Notes Treatment Notes Treatment Clinical Notes Dec, BMI 36.0-36.9,adult (ICD-10 - Z68.36) [facility] Other 08-24-2022 Evaluation note* Encounter Date Diagnosis [...] third and final prescription of the Adipex. [facility] Other 08-03-2022 Evaluation note* Encounter Date Diagnosis Assessment Notes Treatment Notes Treatment Clinical Notes Nov, BMI 36.0-36.9,adult (ICD-10 - Z68.36) [facility] Other 07-05-2022 Evaluation note* Encounter Date Diagnosis Assessment Notes Treatment Notes Treatment Clinical Notes Oct, Conjunctivitis (ICD9-CM - 372.30) [facility] Other 06-24-2022 Evaluation note* Encounter Date Diagnosis Assessment Notes Treatment Notes Treatment Clinical Notes Sep, BMI 37.0-37.9, adult (ICD-10 - Z68.37) [facility] sent. Lengthy discussion regarding side effects as well as possible outcomes of the medication. We will see her back in 1 month. Patient to call with any concerns. [facility] Other 06-24-2022 Evaluation note* Encounter Date Diagnosis Assessment Notes Treatment Notes Treatment Clinical Notes Sep, BMI 37.0-37.9, adult (ICD-10 - Z68.37) [facility] Other 06-13-2022 Evaluation note* Encounter Date Diagnosis Assessment Notes Treatment Notes Treatment Clinical Notes Sep, BMI 38.0-38.9,adult (ICD-10 - Z68.38) [facility] Other 06-09-2022 Evaluation note* Encounter Date Diagnosis [...] psychiatric diagnoses/as well as her seizure concerns. [facility] Other 04-27-2022 Hospital Discharge instructions Patient Education [...] fried and sweet foods. General instructions Take lanl-fmk-mcrinmb and prescription medicines only as told by [...] 02/01/2010 Document Revised: 07/29/2019 Document Reviewed: 04/23/2018 [place] [facility] Patient Education 2019 [employer]. [facility] 02-09-2022 Evaluation note* Encounter Date Diagnosis Assessment [...] 2mg at that time of refill need. [facility] Other 01-18-2022 Evaluation note* Encounter Date Diagnosis Assessment Notes Treatment Notes Treatment Clinical Notes Apr, Dysuria (ICD-10 - R30.0) [facility] Other 01-12-2022 Evaluation note* Encounter Date Diagnosis [...] next week. She voices agreement and understanding. [facility] Other 11-17-2021 NoteHNO ID: [id number] Author: Rosalie Haile MD Service: ? Author Type: Physician Type: Progress Notes Filed: 03/08/2021 8:38 PM Note Text: [facility] - General Progress Note SULLY ENRIQUEZ : 1990 AGE: 31 SEX: F CSN: [id number] [facility]: [facility] LOCATION: [facility] ATTENDING PHYSICIAN: Rosalie Haile M.D. DATE OF [...] follow up. Rosalie Haile M.D. Internal Medicine ESPINOZA:[id number] NoteHNO ID: [id number] Author: Saravanan Yancey MD Service: Neurology General [...] Will await MRI results. Saravanan Yancey MD DPmol Neurology Resident, PGY-4 March 07, 2021[id number] NoteHNO ID: [id number] Author: JULITO Lino Service: Care Management Author Type: Rod Puller Type: Care Mgt Initial Assessment Filed: 03/06/2021 4:04 PM Note Text: CARE MANAGEMENT: ASSESSMENT AND DISCHARGE PLAN SERVICE DATE: March 06, 2021 SERVICE TIME: 4:00 PM PRIMARY CARE PHYSICIAN: Roxie Strickland NP ADMISSION STATUS: Inpatient Needs Prior to Discharge: None MEDICAL: [employer] MEDICA[employer] Patient/Center Director Stated Goals: To have reduction in symptoms;To return home to life as it was Health Insurance: [facility] Health Issues Impacting Discharge Plan: (seizure, headache, CP) Last Discharge Date: N/A Is this Within the Past 30 days? Last discharge within 30 days: No Advance Directive: Current Advance Directive: None Office Technologist Attempted to Assist with AD Completion: Yes [...] None Has the Patient Been in a Snf Facility in the Past 30 days?: No SOCIAL: Living Arrangements: Home Lives With: Partner;Daughter;Son Financial Resources: Employed Primary Contact: Extended Emergency Contact Information Primary Emergency Contact: stormpachecoangelika [address]: [address] [place], [place] [address]refugio madera [address] Mobile Relation: Significant other Secondary Emergency [...] Completely I feel financially burdened by my inn-to-dhntgp expenses for my prescription medication:: 0 - Disagree Completely Risk Score: 0 Patient is categorized as: Low risk < 2 Are you interested in bedside delivery of your medications? No Is Patient Psychosocially Complex?: No ASSESSMENT AND PLAN: Medical Needs: Medical Needs: None Psychosocial Needs: Psychosocial Needs: Mental Health Diagnosis Mental Health Information: Coversion d/o, anxiety FREEDOM OF CHOICE EXPLAINED: [place] of Choice Given: No Reason Not Given: No placements necessary POTENTIAL TRANSITION PLANS Home Pt presents to ED s/p seizer, headache, CP, Hx diabetes (pt adamant she does not have DM), anxiety, epilepsy, conversion disorder. Independent of ADLS and iADLS, [facility], 13 y/o dtr and 10 y/o son. Pt reports she is employed and drives. Does not utilize any DME, nursing home or community resources. No skilled needs identified at this time. DC transportation will be provided by [facility] [phone]. SIGNATURE: JULITO Lino PATIENT NAME: Sully Enriquez DATE: March 06, 2021 TIME: 4:00 PM PAGER/CONTACT #: [phone] HospitalEvaluation + Plan note No data available for this section [facility] evaluation noteNo InformationNort Fiberspar Other Evaluation noteNo assessment information available [place] Work Phone: Hisyvtf general Narrative - Reported* Type Description Date [...] dif ferent times Hospitalization History Seizures 02/2021 [facility] Other Hismsao general Narrative - Reported* Type Description Date [...] dif ferent times Hospitalization History Seizures 02/2021 [facility] Other Hisgzcw general Narrative - ReportedNoKochzauber Other Hisegca general Narrative - Reported* Type Description Date [...] dif ferent times Hospitalization History Seizures 02/2021 [facility] Other Hospital Discharge instructions Additional Instructions DISCHARGE [...] FOLLOW UP -[Please call the office at ([phone]) to make follow appointment before leaving the hospital]. -[2 Weeks] [ ][place] Work Phone: Hospital Discharge instructions No data available for this section [facility] progress note No data available for this section [facility] for visit Narrative1 month Follow up, ER visit recently referrals to GI and urologistLead Fiberspar Other Summary Purpose Family History Relationship Condition [...] time Consult and treat abdominal pain - [facility] x 2 Diagnosis 1 Abdominal pain (R10. 9) Referral Organization [facility] Sekou Patterson Referring Provider First Name Mario Referring Provider Last Name Pee Referring Provider Specialty Family Prac cody Referred Organization Unknown Facility Referred Provider Sumeet Haq Referred Provider Specialty Surgery Referral Priority Routine General Notes Renetta Damico 2022 08:55:03 AM > Sumeet Haq DO, phone [phone]. [facility] recommended Additional Source Comments INFORMATION SOURCE (unrecogn ized section and content) DATE CREATED AUTHOR 03/11/2021 [facility] DATE CREATED AUTHOR AUTHOR'S ORGANIZ ATION 06/25/2022 [facility] DATE CREATED AUTHOR AUTHOR'S ORGANIZ ATION 08/15/2022 [facility] DATE CREATED AUTHOR AUTHOR'S ORGANIZ ATION 02/15/2023 [facility] REASON FOR VISIT (unrecogniz ed section [...] with Dr Garcia, PreSurgical testing done at [facility]- this was completed 04/10/22, will start message to fax note once complete/ and text patientpresurg clearanceCHO[facility] follow uprefill zanaflexrefill xanaxRefill- XanaxUpdate on [...] squad, does say she has been seeing [facility] for counseling- and she really likes her counselor, sees her weekly-, needs xanax, [facility] (she never did pick up attendant last script of the adipex-), she needs [...] BE BASED ON THE PRIMARY CLINICAL RECORDS. [facility] [employer] [facility]. provides no warranty or guarantee of the accuracy or completeness of information in this document.
== END 2023-05-07 09:52 | disposition home or self-care (01) ==
LOC: RAD 09:52
PROVIDERS: PCP Family Medicine; Visit Provider Podiatrist Foot & Ankle Surgery
DX: M25.572 Pain in left ankle and joints of left foot (principal); S82.62XA Displaced fracture of lateral malleolus of left fibula, initial encounter for closed fracture; S92.412D Displaced fracture of proximal phalanx of left great toe, subsequent encounter for fracture with routine healing
CPT/HCPCS: 73610; 73630

== ENCOUNTER 2023-05-10 09:53 | Outpatient (OUT) | payer OTHER, SELFPAY ==
--- NOTE | 2023-05-10 | CT_ITS ---
The [address] [address] Patient Name: TICO ENRIQUEZ MRN: [id number] date: 1990 Sex: F Assigned Patient Location: CT Current Patient Location: Accession/Order Number: [id number] Exam Date: 05/10/2023 10:00 Report Date: 05/10/2023 11:45 At the request of: SHAKIR ANDERSON Procedure: CT foot LT wo con EXAM: CT foot LT wo con COMPARISON: Left foot x-rays from 04/29/2023 and 05/07/2023. HISTORY: Left foot trauma and fracture. Fracture assessment. History of a fall down steps. TECHNIQUE: 1 mm thick axial images were obtained through the left foot and ankle without contrast. 2-D reformatted images were created in the coronal and sagittal planes. Dose reduction techniques were achieved by using automated exposure control and/or adjustment of mA and/or kV according to patient size and/or use of iterative reconstruction technique. FINDINGS: There is an acute comminuted nondisplaced intra-articular fracture involving the mid and distal aspect of the proximal phalanx of the first toe. The fracture extends to the articular surface at the IP joint of the first toe well seen on the axial images. This fracture is comminuted and involves the superior and inferior cortex as well as the medial and lateral cortex of the proximal phalanx of the first toe. There is also an acute comminuted fractures of the distal fibula with comminution both anteriorly and posteriorly and the fracture measuring just greater than 1 cm in longitudinal length. The distal tibia appears intact. There is no OCD lesion involving the talar dome. There is an os trigonum. No calcaneus fracture is evident. The tarsometatarsal alignment appears anatomic. There is soft tissue swelling over the dorsal aspect of the foot. No gross tendon tear is identified by CT. MRI would be more sensitive for evaluation of the soft tissues and tendinous and ligamentous structures. CT/CT foot LT wo con IMPRESSION: 1. There is an acute comminuted intra-articular fracture of the mid and distal aspect of the proximal phalanx of the first toe with extension to the articular surface at the IP joint. 2. There is also an acute comminuted fracture of the distal fibula as described above. 3. No additional fracture in the foot or ankle. The tarsometatarsal alignment appears intact. Electronically authenticated by: SHANT AVILEZ Date: 05/10/2023 11:45
--- OUTSIDE RECORDS SUMMARY | 2023-05-10 09:56 | XMS_ITS | CCD ---
Author Name Unknown Address [address] [place] [address] Organization [facility] Care Team Providers Care Graphics Artist Name Role Phone MARIO GLASGOW Primary Care Physician Carol Ann Chacon Unavailable Unavailable Pee Mario Unavailable Vi Benites Unavailable Pee, DO Mario Morton Primary Care Provider DO Rell Garcia Attending Provider DO Arun Ervin Emergency Provider [phone] Pee, DO Mario Cullen. Attending Provider Mario [...] Unavailable LORI ., QUINTIN Attending Unavailable Richelle Bush Consulting Unavailable LORI ., QUINTIN Consulting Unavailable [...] [azithromycin] Drug Allergy 04-10-20 22 Itching, Unknown, [employer] [facility] [employer] Other (4 sources) cefTRIAXone; Translations: [ceftriaxone] Drug Allergy Mean (qualifier value) [facility] (20 sources) Ciprofloxacin; Translations: [ciprofloxacin] Drug Allergy 04-10-20 22 Itching, Unknown, [employer] [facility] [employer] Other (9 sources) Dicyclomine; Translations: [dicyclomine] Drug Allergy 04-10-20 22 Agitation, Agitated [facility] (20 sources) Ketorolac; Translations: [ketorolac] Drug Allergy 04-10-20 22 Itching, Unknown, [employer] [facility] [employer] Other (20 sources) Metoclopramide; Translations: [metoclopramide] Drug Allergy 04-10-20 22 Itching, Unknown, Agitated [facility] [employer] Other (20 sources) Morphine; Translations: [morphine] Drug Allergy Hives, Hives-IV [facility] [employer] Other Comment on above: causes hives (20 sources) NITROFURANTOIN, MACROCRYSTALS / Nitrofurantoin, Monohydrate; Translations: [nitrofurantoin] Drug Allergy Itching, Unknown [facility] [employer] Other (20 sources) Penicillin; Translations: [penicillin] Drug Allergy Unknown (qualifier value) [facility] [employer] Other (4 sources) zolpidem; Translations: [zolpidem] Drug Allergy Agitation [facility] (20 sources) diphenhydrAMINE Drug Allergy IV Hives [facility] [employer] Other (20 sources) LORazepam Drug Allergy 04-10-20 22 aggressive, Extrapyramidal Symptoms [facility] (20 sources) Penicillin V Drug Allergy Unknown [facility] [employer] Other (10 sources) diphenhydrAMINE Drug Allergy IV Hives [facility] [employer] Other (20 sources) DULoxetine Drug Allergy worsen depression [facility] [employer] Other (6 sources) Nitrofurantoin; Translations: [nitrofurantoin] Drug Allergy 04-10-20 22 Hives [facility] (7 sources) Penicillins; Translations: [Penicillins] Allergy to substance 09-17-19 13 Unknown Reaction [facility] (1 source) Azithromycin Drug Allergy 05-02-19 [facility] (1 source) Ciprofloxacin Drug Allergy 05-02-19 [facility] (1 source) Dicyclomine Drug Allergy 05-02-19 [facility] (1 source) Ketorolac Drug Allergy 05-02-19 [facility] (1 source) LORazepam Drug Allergy 05-02-19 [facility] (1 source) Metoclopramide Drug Allergy 05-02-19 [facility] (1 source) Azithromycin Drug Allergy 09-17-19 13 [facility] (1 source) Ciprofloxacin Drug Allergy 09-17-19 13 [facility] (1 source) Dicyclomine Drug Allergy 07-20-19 15 [facility] (1 source) Iothalamate Drug Allergy 09-17-19 13 [facility] (1 source) Ketorolac Drug Allergy 03-11-20 13 [facility] (1 source) LORazepam Drug Allergy 09-10-19 16 [facility] (1 source) Nitrofurantoin Drug Allergy 09-17-19 13 [facility] (1 source) LORazepam; Translations: [Ativan] Drug Allergy [facility] Medications Current Medications Medication Drug Class(es) Dates Sig (Normalized) Sig (Original) Acetaminophen / HYDROcodone (14 sources) Opioid Agonist Start: 05-16-2021 [place] 5/325 Tab Oral, q6hr, Refill(s) 0 Start Date: 05/16/21 Status: Ordered Start: 05-08-2021 take 1 tablet by karl th every six hours HYDROcodone-Acetaminophen 5-325 MG 1 tab let as needed Orally every 6 hrs for 5 days Apr, Not-Taking Start: 05-08-2021 take 1 tablet by karl th every six hours ALPRAZolam 2 mg oral tablet (20 sources) Benzodiazepine Start: 05-07-2023 take 1 tablet by mouth every twelve hours Xanax 2 MG 1 tablet as needed Orally Twice a day for 30 days Apr, Active Start: 02-25-2023 take 1 tablet by karl th every [...] Start: 07-06-2021 take 1 tablet by karl every twelve hours Xanax 2 MG 1 tablet as needed Orally Twice a day for 30 days Jun, Active Start: 06-08-2021 [facility] X[facility]ax 2 MG 1 tablet as needed Orally Twice a day for 30 days May, Active Start: 05-08-2021 [facility] Xanax 1 MG 1 tablet as needed Orally Twice a day for 30 days Apr, Active Start: 04-11-2021 take 1 tablet by karl every twelve hours Xanax 1 MG 1 tablet as needed Orally Twice a day for 30 days Mar, Active Start: 04-24-2017 take 1 tablet by karl twice daily as needed for anxiety Xanax 0.25 mg Tab 0.25 mg = 1 tab(s), Oral, BID, PRN as needed for anxiety, Refills(s) 0 Start Date: 04/24/17 Status: Ordered Start: 03-14-2017 take 2 tablets by mo [facility] twice daily Alprazolam (Xanax) 1 mg [...] 90 tab(s), Refills(s) 3, Bladder problems, Pharmacy: [facility]/pharmacy #[id number], 165, cm, 05/18/21 11:56:00 EST, Height/Length Dosing, 100, kg, 05/16/21 9:54:00 EST, Weight Dosing Start Date: 05/21/21 Status: Ordered montelukast 10 mg oral tablet (18 sources) Leukotriene Receptor Antagonist Start: 06-25-19 take 1 tablet by mouth every twenty-four hours Montelukast Sodium 10 MG 1 tablet Orally Once a day for 30 days Jun, Active ondansetron 4 mg disintegrating oral tablet (20 sources) Serotonin-3 Receptor Antagonist Start: 05-02-19 take 4 mg by mouth every six hours Ondansetron Active 4 MG PO Q6H May 02, 2022 12:00am Start: 06-18-2021 take 1 tablet by karl th every eight hours Ondansetron HCl 4 MG [...] mg tablet,disintegrating Discontinued 8 MG PO Q8H 08 21August 20, 2017 11:00pm August 23, 2017 11:01pm [...] Start: 11-14-2022 take 1 tablet by karl th once daily before breakfast Phentermine HCl 37.5 [...] pain, # 12 tab(s), Refills(s) 0, Pharmacy: [facility]/pharmacy #[id number], 165, cm, 11/22/22 19:18:00 EDT, Height/Length Dosing, 103, kg, 11/22/22 19:18:00 EDT, Weight Dosing Start Date: 11/23/22 Status: Ordered Start: 05-02-2022 take 50 mg by mouth every four hours Tramadol Active 50 MG PO Q4H 07 11May 02, 2022 12:00am Start: 01-30-2022 take 1-2 [...] Mar, Active valACYclovir 1000 mg oral tablet (14 sources) Herpesvirus Nucleoside Analog DNA Polymerase Inhibitor, Herpes Simplex Virus Nucleoside Analog DNA Polymerase Inhibitor, Herpes Zoster Virus Nucleoside Analog DNA Polymerase Inhibitor Start: 04-10-2022 take 1000 mg by mouth twice daily Valacyclovir Active 1000 MG PO Twice daily April 10, 2022 12:00am take 1 tablet by kral th once daily as needed Valtrex 1 GM 1 tablet Orally for cold sores Once a day/PRN Active take 1 tablet by karl th once [...] procedure, # 2 tab(s), Refills(s) 0, Pharmacy: [facility]/pharmacy #[id number], 165, cm, 05/18/21 11:56:00 EST, Height/Length Dosing, 100, kg, 05/16/21 9:5... 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] Onset: 08-15-2022 Episodic Other [...] 39.0-39.9, adult Chronic Other upper respiratory disease (18 sources) Seasonal allergy; Translations: [Other seasonal allergic [...] Range Facility Physician Referralon 023 Physician Referral [id number] [facility] Physician Referralon 023 Physician Referral [id number]:12 7 [facility] RAD - MISCon 12-27-2022 [facility] [id number]#[id number]:12 7 [facility] ED Note-Physicianon 11-27-19 23 ED Note-Physician [id number]#[id number]:12 7 [facility] ED Note-Physician Basic Information Time Seen: Gaby Turner PA-C 11/22/2022 20:47 Chief Complaint L flank pain worsening x 2 weeks. pt. seen at [facility] x 2 with negative workup. hx kidney stones. also c/o N/V. denies fevers. History of Present Illness This patient presents emergency department chief complaint of left flank pain. The patient states this has been going on for 2 weeks. She has been seen at [facility] twice but they could not determine an [...] Patient has not followed up with a analytical research program manager in a long time. I discussed with [...] the patient (more content not included)... Normal [facility] Comment on above: Result Comment: Elec tronically Signed By: Gaby Turner PA-C\.br\Date and Time Signed: 11/24/22 04:37 EDT\.br\Electronically Co-Signed By: Dokken DO, Kaylinn A\.br\Date and Time Co-Signed: 11/25/22 22:37 EDT C [...] Locations R1: This test was performed at: [facility], [address] [place] [address], [phone]- , , [facility] Comment on above: Performed By: #### 1 [id number], [id number], [id number] #### [facility] [address] [place] [address] Discharge Instructionson Discharge Instructions [id number]:1 27 [facility] ED Clinical Summaryon 2022 ED Clinical Summary (Inserted Image. Jeniffer ble to display) [address] [address] ED Clinical Summary Person Information Name: SULLY ENRIQUEZ Margi/[facility] Age: 32 Years : 1990 Sex: Female Language: Citizen Of [place] PCP: MARIO GLASGOW DO Marital Status: Visit [...] 11/23/2022 01:20:40 11/23/2022 01:20:40 11/23/2022 01:20:40 ADDRESS: [address] [place] [id number] PHYS DOC NOTES: MEDICAL INFORMATION: Prescriptions Given: New Medications [id number], [address], [place] [id number], [phone] tramadol (traMADOL 50 mg Tab) 1 Tablets By Mouth every 6 hours as needed for pain. Refills: 0. Medications to Continue with No Changes Other Medications acetaminophen-hydrocodone ([place] 5/325 Tab) By Mouth every 6 hours. [...] Endometriosis; Laparoscopic Lysis of Abdominal Adhesions; Adhesions, Bhcu-ys-Obue; Abdominal Pain, Adult, Yfrq-ap-Jund Follow up: With: Address: When: MARIO GLASGOW [address] [place] [address] TONY, [facility] [address] [place] [id number] Business (1) In 3 days 11/26/2022 DIAGNOSIS: 1:Chronic left flank pain; 2:Abdominal pain, acute, left upper quadrant; Other chronic pain Normal [facility] ED Patient Education Noteon 11-23-2022 ED [...] including vitamins, herbs, eye drops, creams, and ejsq-iwj-avoydnl medicines. ? Any problems you or family [...] tells you to take them. ? Taking kcwl-cxp-kfkrmrj medicines, vitamins, herbs, and supplements. General instructions [...] returns. Aft (more content not included)... Normal [facility] ED Patient Summaryon 023 ED Patient Summary (Inserted Image. Jeniffer ble to display) [address] [address] Patient Discharge Instructions Person Information Name: SULLY ENRIQUEZ Age: 32 Years Arrival Date: 11/22/2022 19:01:04 Discharge Diagnosis: 1:Chronic left flank pain; 2:Abdominal pain, acute, left upper quadrant; Other chronic pain Primary Care Physician: MARIO GLASGOW DO Provider Information Primary Provider: Sonam Montoya DO Advanced Heat Seal Operator:None The exam and treatment you received in the Emergency Department were for an urgent problem and are not intended as complete care. It is important that you follow up with a doctor, nurse practitioner, or physician?s drug safety assistant for ongoing care. If your symptoms become worse or you do not improve as expected and you are unable to reach your usual health care provider, you should return to the Emergency Department. We are available 24 hours a day. SULLY ENRIQUEZ Alyse has been given the following list of patient education materials, prescriptions and follow-up instructions: Follow-up Instructions: With: Address: When: MARIO GLASGOW [address] [place] [address] [address] Business (1) In 3 days 11/26/2022 In the event that this physician does not participate in your insurance network, please consult with your insurance company to find a nearby participating provider. Patient Education Materials: Endometriosis; Laparoscopic Lysis of Abdominal Adhesions; Adhesions, Zudp-sn-Aevt; Abdominal Pain, Adult, Sykg-jw-Jxbd A MESSAGE TO ALL PATIENTS REGARDING OPIOIDS PRESCRIPTION OPIOIDS: WHAT YOU NEED TO KNOW Prescription opioids can be used to help relieve hrtmojcf-ad-oyqzda pain and are often prescribed following a [...] struggling wit (more content not included)... Normal [facility] XR Abdomen 1 Viewon 11-24-19 XR [...] mGy = na DAP = na Normal [facility] Auto Diffon 11-22-2022 Basophils/100 WBC (Bld) 0.6 % Normal 0.0-2.0 [facility] Comment on above: Order Comment: Order Added by Discern Expert. Performed By: #### 2 873062, 0200883, 9015331, 47667224, 6564336, 3178543 #### [facility] [address] [place] [address] Basophils/Leukocytes Auto (Bld) [Pure # fraction] 0.0 E9/L Normal 0.0-0.2 [facility] Comment on above: Order Comment: Order Added by Discern Expert. Performed By: #### 2 855744, 7745859, 2614638, 13498305, 9329712, 5496453 #### [facility] [address] [place] [address] Eosinophils/100 WBC (Bld) 1.5 % Normal 0.0-8.0 [facility] Comment on above: Order Comment: Order Added by Discern Expert. Performed By: #### 2 332501, 4819447, 4668260, 92322761, 3354349, 8286260 #### [facility] [address] [place] [address] Eosinophils/Leukocytes Auto (Bld) [Pure # fraction] 0.1 E9/L Normal 0.0-0.5 [facility] Comment on above: Order Comment: Order Added by Discern Expert. Performed By: #### 2 288800, 8880737, 0643406, 37314826, 6437628, 9190407 #### [facility] [address] [place] [address] Lymphocytes/100 WBC (Bld) 33.5 % Normal 14.0-50.0 [facility] Comment on above: Order Comment: Order Added by Discern Expert. Performed By: #### 2 317262, 1061064, 4341496, 12530986, 1007731, 1051579 #### [facility] [address] [place] [address] Lymphocytes/Leukocytes Auto (Bld) [Pure # fraction] 2.6 E9/L Normal 1.0-4.0 [facility] Comment on above: Order Comment: Order Added by Discern Expert. Performed By: #### 2 843073, 0673698, 3525810, 08922193, 0088505, 0951925 #### [facility] [address] [place] [address] Monocytes/100 WBC (Bld) 8.6 % Normal 4.0-14.0 [facility] Comment on above: Order Comment: Order Added by Discern Expert. Performed By: #### 2 112017, 2961727, 2025853, 08938217, 1215809, 7221910 #### [facility] [address] [place] [address] Monocytes/Leukocytes Auto (Bld) [Pure # fraction] 0.7 E9/L Normal 0.2-1.0 [facility] Comment on above: Order Comment: Order Added by Discern Expert. Performed By: #### 2 152417, 2219638, 8483201, 48801838, 3949685, 9617536 #### [facility] [address] [place] [address] Neutrophils/100 WBC (Bld) 55.8 % Normal 36.0-75.0 [facility] Comment on above: Order Comment: Order Added by Discern Expert. Performed By: #### 2 678536, 3868701, 6683673, 10876687, 3216138, 9019440 #### [facility] [address] [place] [address] Neutrophils/Leukocytes Auto (Bld) [Pure # fraction] 4.3 E9/L Normal 2.0-7.5 [facility] Comment on above: Order Comment: Order Added by Discern Expert. Performed By: #### 2 854457, 2446396, 8944961, 03353750, 2502615, 3160820 #### [facility] [address] [place] [address] BMPon 11-22-2022 Creatinine [Mass/Vol] 1.0 mg/dL Normal 0.5-1.3 [facility] Comment on above: Performed By: #### 2 837924, 1772758, 2123697, 04643170, 2645553, 4642374 #### [facility] [address] [place] [address] Urea nitrogen [Mass/Vol] 16 mg/dL Normal 5-21 [facility] Comment on above: Performed By: #### 2 222196, 8216738, 8751179, 29402625, 7854107, 4992526 #### [facility] [address] [place] [address] Urea nitrogen/Creatinine [Mass ratio] 16 No Units Normal 10-20 [facility] Comment on above: Performed By: #### 2 792100, 8447690, 1642124, 70536144, 2977408, 6853811 #### [facility] [address] [place] [address] Anion gap [Moles/Vol] 15 mmol/L Normal 6-16 [facility] Comment on above: Performed By: #### 2 521090, 5326000, 5646532, 80567125, 5723624, 8456996 #### [facility] [address] [place] [address] Calcium [Mass/Vol] 9.6 mg/dL Normal 8.9-11.1 [facility] Comment on above: Performed By: #### 2 507641, 9391926, 4110064, 08677312, 0904893, 2122378 #### [facility] [address] [place] [address] Chloride [Moles/Vol] 107 mmol/L Normal 101-111 [facility] Comment on above: Performed By: #### 2 421772, 7541169, 5106220, 01419577, 1093074, 7240105 #### [facility] [address] [place] [address] CO2 [Moles/Vol] 19 mmol/L Low 21-31 [facility] Comment on above: Performed By: #### 2 507993, 1888281, 2344850, 33679915, 6667712, 0558908 #### [facility] [address] [place] [address] Glucose [Mass/Vol] 97 mg/dL Normal 55-199 [facility] Comment on above: Result Comment: If t his glucose result represents a fasting glucose, interpretation should refer to the following reference range: 55-99 mg/dL Performed By: #### 2 615253, 9339364, 0473336, 71354246, 6005777, 9346470 #### [facility] [address] [place] [address] Potassium [Moles/Vol] 3.9 mmol/L Normal 3.5-5.3 [facility] Comment on above: Performed By: #### 2 795396, 3283711, 4640317, 74346353, 3771236, 6529504 #### [facility] [address] [place] [address] Sodium [Moles/Vol] 137 mmol/L Normal 135-145 [facility] Comment on above: Performed By: #### 2 450517, 2731331, 0466734, 90191501, 3266849, 9688081 #### [facility] [address] [place] [address] CBC w/ Auto Diffon 3 Erythrocyte distribution width (RBC) [Ratio] 13.0 % Normal 10.9-14.2 [facility] Comment on above: Performed By: #### 2 249451, 5673610, 7787415, 18052959, 7194750, 4721354 #### [facility] [address] [place] [address] Hematocrit (Bld) [Volume fraction] 42.7 % Normal 34.0-46.0 [facility] Comment on above: Performed By: #### 2 262558, 9091944, 7681729, 85694701, 0766148, 7336405 #### [facility] [address] [place] [address] Hemoglobin (Bld) [Mass/Vol] 14.6 g/dL Normal 12.0-16.0 [facility] Comment on above: Performed By: #### 2 372259, 2300170, 3609252, 98083519, 4767700, 2583240 #### [facility] [address] [place] [address] MCH (RBC) [Entitic mass] 31.7 pg Normal 27.0-34.0 [facility] Comment on above: Performed By: #### 2 216222, 2727579, 4160233, 89676164, 7568050, 3818347 #### [facility] [address] [place] [address] MCHC (RBC) [Mass/Vol] 34.1 g/dL Normal 31.4-36.0 [facility] Comment on above: Performed By: #### 2 350363, 3284642, 5542956, 29945750, 3860658, 2739119 #### [facility] [address] [place] [address] MCV (RBC) [Entitic vol] 93.1 fL Normal 80.0-100.0 [facility] Comment on above: Performed By: #### 2 496809, 1032288, 6198279, 13583974, 8329382, 1508493 #### [facility] [address] [place] [address] Platelet mean volume (Bld) [Entitic vol] 8.8 fL Normal 6.4-10.8 [facility] Comment on above: Performed By: #### 2 066731, 9963432, 1429366, 07632870, 1433428, 5191831 #### [facility] [address] [place] [address] Platelets (Bld) [#/Vol] 199.0 E9/L Normal 150.0-500.0 [facility] Comment on above: Performed By: #### 2 188990, 5873281, 8089911, 48346245, 8370225, 1630606 #### [facility] [address] [place] [address] RBC (Bld) [#/Vol] 4.6 E12/L Normal 4.3-5.9 [facility] Comment on above: Performed By: #### 2 294077, 4612922, 5311201, 52102688, 5748677, 1244707 #### [facility] [address] [place] [address] WBC corrected for nucl RBC Auto (Bld) [#/Vol] 7.7 E9/L Normal 4.0-11.0 [facility] Comment on above: Performed By: #### 2 712081, 2874212, 9511427, 02646636, 2585240, 2079237 #### [facility] [address] [place] [address] CHEMISTRYOrdered By: SYSTEM SYSTEM on 11-22-2022 Albumin [...] Remisol Consent for Treatmenton Consent for Treatment [id number]:12 7 Normal [facility] HEMATOLOGYOrdered By: SYSTEM SYSTEM on 11-22-2022 [...] 2.6 E9/L Normal 1.0 - 4.0 E9/L [facility] Monocytes/100 WBC (Bld) 8.6 % Normal 4.0 - 14.0 % [facility] Monocytes/Leukocytes Auto (Bld) [Pure # fraction] 0.7 E9/L Normal 0.2 - 1.0 E9/L [facility] Neutrophils/100 WBC (Bld) 55.8 % Normal 36.0 - 75.0 % [facility] Neutrophils/Leukocytes Auto (Bld) [Pure # fraction] 4.3 E9/L Normal 2.0 - 7.5 E9/L [facility] HEMATOLOGYOrdered By: Tanvi Agrawal on 11-22-2022 Erythrocyte distribution width (RBC) [Ratio] 13.0 % Normal 10.9 - 14.2 % [facility] Hematocrit (Bld) [Volume fraction] 42.7 % Normal 34.0 - 46.0 % [facility] Hemoglobin (Bld) [Mass/Vol] 14.6 g/dL Normal 12.0 - 16.0 gm/dL [facility] MCH (RBC) [Entitic mass] 31.7 pg Normal 27.0 - 34.0 pg [facility] MCHC (RBC) [Mass/Vol] 34.1 g/dL Normal 31.4 - 36.0 gm/dL [facility] MCV (RBC) [Entitic vol] 93.1 fL Normal 80.0 - 100.0 fL [facility] Platelet mean volume (Bld) [Entitic vol] 8.8 fL Normal 6.4 - 10.8 fL [facility] Platelets (Bld) [#/Vol] 199.0 E9/L Normal 150. 0 - 500.0 E9/L [facility] RBC (Bld) [#/Vol] 4.6 E12/L Normal 4.3 - 5.9 E12/L [facility] WBC corrected for nucl RBC Auto (Bld) [#/Vol] 7.7 E9/L Normal 4.0 - 11.0 E9/L [facility] Hep Func Panelon 11-22-2022 Bilirubin.indirect [Mass or moles/Vol] UTC Abnormal 0.1-0.9 [facility] Comment on above: Result Comment: Resu lt verified by Discern Rule. Performed result [facility] (Unable to Calculate) was sent as an Alpha code due the inability to calculate a valid numeric value. Performed By: #### 2 067931, 5746644, 1802219, 79133242, 1676255, 3838305 #### [facility] [address] [place] [address] Albumin [Mass/Vol] 4.5 g/dL Normal 3.3-5.0 [facility] Comment on above: Performed By: #### 2 959011, 1974226, 6791210, 76390316, 8325918, 8464208 #### [facility] [address] [place] [address] Albumin/Globulin (S) [Mass conc ratio] 1.3 Normal 1.1-2.2 [facility] Comment on above: Performed By: #### 2 998218, 5493904, 2334553, 69481560, 6819559, 9588767 #### [facility] [address] [place] [address] ALP [Catalytic activity/Vol] 42 Int._Unit/L Normal 21-98 [facility] Comment on above: Performed By: #### 2 269613, 4049530, 0386314, 66371253, 9266279, 3398908 #### [facility] [address] [place] [address] ALT No additional P-5'-P [Catalytic activity/Vol] 36 Int._Unit/L Normal 6-46 [facility] Comment on above: Performed By: #### 2 202147, 7469315, 8402666, [id number], 9242232, 8682073 #### [facility] [address] [place] [address] AST [Catalytic activity/Vol] 26 Int._Unit/L Normal 5-43 [facility] Comment on above: Performed By: #### 2 923157, 7113829, 5265153, 08831100, 0904813, 6124583 #### [facility] [address] [place] [address] Bilirubin [Mass/Vol] 0.6 mg/dL Normal 0.0-1.1 Fish er [facility] Comment on above: Performed By: #### 2 274166, 3347693, 9257618, 81964671, 3365434, 2382632 #### [facility] [address] [place] [address] Globulin (S) [Mass/Vol] 3.4 g/dL Normal 1.4-4.0 [facility] Comment on above: Performed By: #### 2 160666, 8356536, 7189378, 73978823, 4573293, 6892918 #### [facility] [address] [place] [address] Protein [Mass/Vol] 7.9 g/dL High 6.0-7.8 [facility] Comment on above: Performed By: #### 2 847837, 2111552, 9947523, 31251734, 2546889, 9744624 #### [facility] [address] [place] [address] Bilirubin.direct [Mass/Vol] mg/dL Normal 0.1-0.4 [facility] Comment on above: Performed By: #### 2 125909, 9945604, 7367339, 13073130, 9876423, 4459437 #### [facility] [address] [id number] Laboratory - Microbiology an d Antimicrobial susceptibilityOrdered By: Sherice Espinosa on 11-22-2022 Bacteria identified Cx Nom (U) 500 cfu/ml Mixed skin contaminants [facility] Lipase Levelon 11-22-2022 Lipase [Catalytic activity/Vol] 28 U/L Normal 13-58 [facility] Comment on above: Performed By: #### 2 937503, 3894569, 5929512, 98551481, 9708227, 6572009 #### [facility] [address] [address] SEROLOGYOrdered By: Mario For ster on 11-22-2022 HCG.beta subunit (U) [Moles/Vol] Negative Normal [facility] Sero U BetaHcg Qualon 11-22-2022 HCG.beta subunit (U) [Moles/Vol] Negative Normal [facility] Comment on above: Performed By: #### 1 2479622, 5334212, 66027798 #### [facility] [address] [place] [address] UA With Cult Reflexon 2022 Bacteria LM Ql (Urine sed) 2+ /HPF Abnormal Trace [facility] Comment on above: Performed By: #### 1 7985744, 6494721, 27456585 #### [facility] [address] [place] [address] Bilirubin Ql (U) Negative Normal Negative [facility] Comment on above: Performed By: #### 1 4684002, 8258676, 38280604 #### [facility] [address] [place] [address] Clarity (U) CLEAR Normal Clear [facility] Comment on above: Performed By: #### 1 2829867, 2297800, 25557380 #### [facility] [address] [place] [address] Color (U) YELLOW Normal Yellow [facility] Comment on above: Performed By: #### 1 1671365, 7193099, 16838916 #### [facility] [address] [place] [address] Epithelial cells.squamous LM.HPF (Urine sed) [#/Area] 5-8 Normal 0-2 [facility] Comment on above: Performed By: #### 1 1483754, 1565857, 67461195 #### [facility] [address] [place] [address] Glucose Test strip (U) [Mass/Vol] Negative Normal Negative [facility] Comment on above: Performed By: #### 1 0562635, 7022730, 35385598 #### [facility] [address] [place] [address] Hemoglobin Ql (U) Negative Normal Negative [facility] Comment on above: Performed By: #### 1 7656811, 0336379, 41633808 #### [facility] [address] [place] [address] Ketones (U) [Mass/Vol] Negative Normal Negative [facility] Comment on above: Performed By: #### 1 2531015, 6542545, 67232091 #### [facility] [address] [place] [address] [place].plasma/[place]. RBC (Bld) [Mass ratio] 0-3 Normal 0-3 [facility] Comment on above: Performed By: #### 1 9107663, 3919148, 11935458 #### [facility] [address] [place] [address] Mucus Ql (Urine sed) TRACE Normal [facility] Comment on above: Performed By: #### 1 0952859, 2173439, 13341368 #### [facility] [address] [place] [address] Nitrite Ql (U) Negative Normal Negative [facility] Comment on above: Performed By: #### 1 3942460, 6008230, 23002353 #### [facility] [address] [place] [address] pH (U) 6.0 [pH] Invalid Interpretation Code 5.0-9.0 [facility] Comment on above: Performed By: #### 1 1202905, 8788474, 13938331 #### [facility] [address] [place] [address] Protein (U) [Mass/Vol] Negative Normal Negative [facility] Comment on above: Performed By: #### 1 2969951, 0417067, 00254526 #### [facility] [address] [place] [address] Specific gravity (U) [Rel density] 1.025 Invalid Interpretation Code 1.005-1.030 [facility] Comment on above: Performed By: #### 1 0495469, 3814988, 31015328 #### [facility] [address] [place] [address] Type of Urine collection method Clean Catch Normal [facility] Comment on above: Performed By: #### 1 7028361, 3614879, 99438839 #### [facility] [address] [place] [address] Urobilinogen Qn (U) 0.2 {Elba'U}/dL Normal 0.0-1.0 [facility] Comment on above: Performed By: #### 1 8581841, 0300644, 44047042 #### [facility] [address] [place] [address] WBC Auto Ql (U) Negative Normal Negative [facility] Comment on above: Performed By: #### 1 1141869, 1918629, 47276707 #### [facility] [address] [place] [address] WBC LM.HPF (Urine sed) [#/Area] 0-5 Normal 0-5 [facility] Comment on above: Performed By: #### 1 0911557, 9087797, 02955596 #### [facility] [address] [place] [address] URINALYSISOrdered By: Mario howell on 11-22-2022 Bacteria [...] PM) Normal Negative [facility] UA Auto SS [place].plasma/[place]. RBC (Bld) [Mass ratio] 0-3 /HPF Normal 0-3/HPF [facility] UA Auto SS Mucus Ql (Urine sed) Trace (11/22/22 7:19 PM) Normal [facility] UA Auto SS Nitrite Ql (U) Negative (11/22/22 7:19 PM) Normal Negative [facility] UA Auto SS pH (U) 6.0 *NA* (11/22/22 7:19 PM) Invalid Interpretation Code 5.0 - 9.0 [facility] UA Auto SS Protein (U) [Mass/Vol] Negative (11/22/22 7:19 PM) Normal Negative [facility] UA Auto SS Specific gravity (U) [Rel density] 1.025 *NA* (11/22/22 7:19 PM) Invalid Interpretation Code 1.005 - 1.030 [facility] UA Auto SS UA Spec Desc Clean Catch (11/22/22 7:19 PM) Normal [facility] UA Auto SS Urobilinogen Qn (U) 0.8754687 {Elba'U}/dL Normal 0.0 - 1.0 EU/dL [facility] UA Auto SS WBC Auto Ql (U) Negative (11/22/22 7:19 PM) Normal Negative [facility] UA Auto SS WBC LM.HPF (Urine sed) [#/Area] 0-5 /HPF Normal 0-5/HPF [facility] UA Auto SS eGFRon 11-22-2022 GFR/1.73 sq M.predicted among non-blacks MDRD (S/P/Bld) [Vol rate/Area] 76 mL/min/1.73 m2 Normal >=59 [facility] Comment on above: Order Comment: Order added by Discern Expert. Result Comment: Side Stapler fahad kidney disease could be indicated at eGFR's of less than 60 mL/min/1.73m2. Kidney failure is indicated at less than 15 mL/min/1.73m2. Performed By: #### 2 874183, 8235863, 6880748, 27655506, 6055645, 4888675 #### [facility] [address] [address] HEAD WO CONon 08-14-2022 CT HEAD [...] by: ROC ARNOLD Date: 2022-08-13 22:12 Normal [facility] CBC AUTO DIFFon 08-13-2022 BASO # 0.0 103/ul Normal 0.0-0.1 [facility] Comment on above: Performed By: #### C BC ####[facility] [address] [address]Dr. Douglas Tucker Basophils/100 WBC (Bld) 0.3 % Normal 0.2-2.0 [facility] Comment on above: Performed By: #### C BC ####[facility] [address] [place] [address]DrHernandez Tucker EO # 0.0 103/ul Normal 0.0-0.7 [facility] Comment on above: Performed By: #### C BC ####[facility] [address] [place] [id number] Tucker Eosinophils/100 WBC (Bld) 0.1 % Critically low 0.9-7.0 [facility] Comment on above: Performed By: #### C BC ####[facility] [address] [place] [address]DrHernandez Tucker Erythrocyte distribution width (RBC) [Ratio] 12.3 % Normal 11.0-15.0 [facility] Comment on above: Performed By: #### C BC ####[facility] [address] [place] [address]DrHernandez Tucker Hematocrit (Bld) [Volume fraction] 41.6 % Normal 36.0-48.0 [facility] Comment on above: Performed By: #### C BC ####[facility] [address] [place] [address]DrHernandez Tucker Hemoglobin (Bld) [Mass/Vol] 13.6 g/dL Normal 12.0-16.0 [facility] Comment on above: Performed By: #### C BC ####[facility] [address] [place], [place] [address]DrHernandez Tucker IG # 0.05 10e3/ul Critically high 0.00-0.03 [facility] Comment on above: Performed By: #### C BC ####[facility] [address] [place], [place] [address]DrHernandez Tucker IG % 0.3 % Normal 0.0-0.5 [facility] Comment on above: Performed By: #### C BC ####[facility] [address] [place], [place] [address]DrHernandez Tucker LYMPH # 3.0 103/ul Normal 1.2-3.8 [facility] Comment on above: Performed By: #### C BC ####[facility] [address] [place], [place] [address]DrHernandez Tucker Lymphocytes/100 WBC (Bld) 20.9 % Normal 20.5-60.0 [facility] Comment on above: Performed By: #### C BC ####[facility] [address] [place], [place] [address]DrHernandez Tucker MANUAL DIFF REQ NO Normal [facility] Comment on above: Performed By: #### C BC ####[facility] [address] [place], [place] [address]DrHernandez Tucker MCH (RBC) [Entitic mass] 31.7 pg Normal 26.7-34.0 [facility] Comment on above: Performed By: #### C BC ####[facility] [address] [place] [address]DrHernandez Tucker MCHC (RBC) [Mass/Vol] 32.7 g/dL Normal 29.9-35.2 [facility] Comment on above: Performed By: #### C BC ####[facility] [address] [place], [place] [address]DrHernandez Tucker MCV (RBC) [Entitic vol] 97.0 fL Normal 81.0-99.0 [facility] Comment on above: Performed By: #### C BC ####[facility] [address] [place], [place] [address]DrHernandez Tucker MONO # 1.0 103/ul Critically high 0.3-0.8 [facility] Comment on above: Performed By: #### C BC ####[facility] [address] [place], [place] [address]DrHernandez Tucker Monocytes/100 WBC (Bld) 7.2 % Normal 1.7-12.0 [facility] Comment on above: Performed By: #### C BC ####[facility] [address] [place], [place] [address]DrHernandez Tucker NEUT # 10.2 103/ul Critically high 1.4-6.5 [facility] Comment on above: Performed By: #### C BC ####[facility] [address] [place], [place] [address]DrHernandez Tucker Neutrophils/100 WBC (Bld) 71.2 % Normal 43.0-75.0 [facility] Comment on above: Performed By: #### C BC ####[facility] [address] [place], [place] [address]DrHernandez Tucker Platelet mean volume (Bld) [Entitic vol] 10.6 fL Normal 9.5-13.5 [facility] Comment on above: Performed By: #### C BC ####[facility] [address] [place], [place] [address]DrHernandez Tucker PLT 229 103/ul Normal 150-450 [facility] Comment on above: Performed By: #### C BC ####[facility] [address] [place], [place] [address]MnHernandez Tucker RBC 4.29 106/ul Normal 4.20-5.40 [facility] Comment on above: Performed By: #### C BC ####[facility] [address] [place], [place] [address]AtHernandez Tucker WBC 14.4 103/ul Critically high 4.0-11.0 [facility] Comment on above: Performed By: #### C BC ####[facility] [address] [place] [id number]. Douglas Tucker PROF CHEM 8 (BAS METB)on Anion gap [Moles/Vol] 14.6 mmol/L Normal [facility] Comment on above: Performed By: #### T ZAIDA, BMP #### [facility] [address] [address] [address] Douglas Tucker Calcium [Mass/Vol] 9.0 mg/dL Normal 8.5-10.1 [facility] Comment on above: Performed By: #### T ZAIDA, BMP #### [facility] [address] [address] [address] Douglas Tucker Chloride [Moles/Vol] 107 mmol/L Normal 98-107 [facility] Comment on above: Performed By: #### T ZAIDA, BMP #### [facility] [address] [address] [address] Douglas Tucker CO2 [Moles/Vol] 23.2 mmol/L Normal 21.0-32.0 [facility] Comment on above: Performed By: #### T SH, BMP #### [facility] [address] [address] [address] Douglas Tucker Creatinine [Mass/Vol] 0.88 mg/dL Normal 0.55-1.02 [facility] Comment on above: Performed By: #### T SH, BMP #### [facility] [address] [address] [address] Douglas Tucker EGFR-AF CENTRAL AFRICAN >60 Normal >=60 [facility] Comment on above: Performed By: #### T SH, BMP #### [facility] [address] [place] [address] Dr. Douglas Tucker EGFR-NON AF CENTRAL AFRICAN >60 Normal >=60 [facility] Comment on above: Performed By: #### T SH, BMP #### [facility] [address] [place] [address] Dr. Douglas Tucker Glucose [Mass/Vol] 100 mg/dL Normal 74-106 [facility] Comment on above: Performed By: #### T SH, BMP #### [facility] [address] [place] [address] Dr. Douglas Tucker Potassium [Moles/Vol] 3.8 mmol/L Normal 3.5-5.1 [facility] Comment on above: Performed By: #### T SH, BMP #### [facility] [address] [place] [address] Dr. Douglas Tucker Sodium [Moles/Vol] 141 mmol/L Normal 136-145 [facility] Comment on above: Performed By: #### T SH, BMP #### [facility] [address] [place] [address] Dr. Douglas Tucker Urea nitrogen [Mass/Vol] 10.0 mg/dL Normal 7.0-18.0 [facility] Comment on above: Performed By: #### T SH, BMP #### [facility] [address] [place] [address] Dr. Douglas Tucker Urea nitrogen/Creatinine [Mass ratio] 11.4 mg/mg Normal [facility] Comment on above: Performed By: #### T SH, BMP #### [facility] [address] [place] [address] Dr. Douglas Tucker TSHon 08-13-2022 TSH 0.730 uIU/mL Normal 0.358-3.740 [facility] Comment on above: Performed By: #### T SH, BMP #### [facility] [address] [place] [address] Dr. Douglas Tucker Automated erythrocytes count in urine sediment (number/area)Ordered By: Mario Perezgles on 06-14-2022 RBC Auto (Urine sed) [#/Area] None seen [HPF] 0-4 [facility] Automated leukocytes count i n urine sediment (number/area)Ordered By: Mario Perezgles on 06-14-2022 WBC Auto (Urine sed) [#/Area] 20-49 [HPF] 0-4 [facility] Bilirubin Test strip Ql (U)O rdered By: Mario Pee on 06-14-2022 Bilirubin Ql (U) Negative Negative [facility] Color Auto (U)Ordered By: Pee on 06-14-2022 Color (U) Yellow Yellow [facility] Dipstick and Microscopicon 0 06-14-2022 Appearance (U) Cloudy Critically abnormal Clear [facility] Comment on above: Order Comment: Reaso n for Exam Urinary frequency Name Collection Type:: Voided Performed By: #### P T, CBC, CMP, PTT #### [facility] [address] [id number] [place] Bacteria,Urine 2+ High None Seen [facility] Comment on above: Order Comment: Reaso n for Exam Urinary frequency Name Collection Type:: Voided Performed By: #### P T, CBC, CMP, PTT #### [facility] [address] [place] [address] [place] Bilirubin,Urine Negative Normal Negative [facility] Comment on above: Order Comment: Reaso n for Exam Urinary frequency Name Collection Type:: Voided Performed By: #### P T, CBC, CMP, PTT #### [facility] [address] [place] [address] [place] Color (U) Yellow Normal Yellow [facility] Comment on above: Order Comment: Reaso n for Exam Urinary frequency Name Collection Type:: Voided Performed By: #### P T, CBC, CMP, PTT #### [facility] [address] [id number] [place] Glucose Ql (U) Normal Normal Normal [facility] Comment on above: Order Comment: Reaso n for Exam Urinary frequency Name Collection Type:: Voided Performed By: #### P T, CBC, CMP, PTT #### [facility] [address] [place] [address] [place] Hyaline Casts,Urine 0-8 Normal 0-8 [facility] Comment on above: Order Comment: Reaso n for Exam Urinary frequency Name Collection Type:: Voided Result Comment: PERF ORMED BY: [place] [address] PATHOLOGIST BENEFIT DIRECTOR LEV HERNÁNDEZ M.D. Performed By: #### P T, CBC, CMP, PTT #### [facility] [address] [place] [address] Ketones Ql (U) Negative Normal Negative [facility] Comment on above: Order Comment: Reaso n for Exam Urinary frequency Name Collection Type:: Voided Performed By: #### P T, CBC, CMP, PTT #### [address] Leukocyte esterase Test strip Ql (U) 3+ High Negative [facility] Comment on above: Order Comment: Reaso n for Exam Urinary frequency Name Collection Type:: Voided Performed By: #### P T, CBC, CMP, PTT #### [facility] [address] [place] [address] [place] Nitrite,Urine Negative Normal Negative [facility] Comment on above: Order Comment: Reaso n for Exam Urinary frequency Name Collection Type:: Voided Performed By: #### P T, CBC, CMP, PTT #### [facility] [address] [place] [address] [place] Occult Blood,Urine Negative Normal Negative [facility] Comment on above: Order Comment: Reaso n for Exam Urinary frequency Name Collection Type:: Voided Result Comment: PERF ORMED BY: [place] [address] PATHOLOGIST BENEFIT DIRECTOR LEV HERNÁNDEZ M.D. Performed By: #### P T, CBC, CMP, PTT #### [facility] [address] [place] [address] [place] pH (U) 5.5 [pH] Normal 5.0-9.0 [facility] Comment on above: Order Comment: Reaso n for Exam Urinary frequency Name Collection Type:: Voided Performed By: #### P T, CBC, CMP, PTT #### [facility] [address] [place] [address] Protein,Urine Negative Normal Negative [facility] Comment on above: Order Comment: Reaso n for Exam Urinary frequency Name Collection Type:: Voided Performed By: #### P T, CBC, CMP, PTT #### [address] RBC,Urine None Seen Normal 0-4 [facility] Comment on above: Order Comment: Reaso n for Exam Urinary frequency Name Collection Type:: Voided Performed By: #### P T, CBC, CMP, PTT #### [address] Specificy [place],Urine 1.013 Normal 1.001-1.030 [facility] Comment on above: Order Comment: Reaso n for Exam Urinary frequency Name Collection Type:: Voided Performed By: #### P T, CBC, CMP, PTT #### [facility] [address] [place] [address] Squamous Epithelial Cell,Urine 5-9 High 0-2 [facility] Comment on above: Order Comment: Reaso n for Exam Urinary frequency Name Collection Type:: Voided Performed By: #### P T, CBC, CMP, PTT #### [facility] [address] [place] [address] Urobilinogen,Urine Normal Normal Normal [facility] Comment on above: Order Comment: Reaso n for Exam Urinary frequency Name Collection Type:: Voided Performed By: #### P T, CBC, CMP, PTT #### [facility] [address] [place] [address] [place] WBC,Urine 20-49 High 0-4 [facility] Comment on above: Order Comment: Reaso n for Exam Urinary frequency Name Collection Type:: Voided Performed By: #### P T, CBC, CMP, PTT #### [facility] [address] [place] [address] Ketones Auto test strip (U) [Mass/Vol]Ordered By: Mario Glasgow on 06-14-2022 Ketones (U) [Mass/Vol] Negative Negative [facility] - UrinalysisOrder ed By: Mario Glasgow on 06-14-2022 Hyaline casts LM Ql (Urine sed) 0-8 [LPF] 0-8 [facility] Nitrite Test strip Ql (U)Ord ered By: Mario Glasgow on 06-14-2022 Nitrite Ql (U) Negative Negative [facility] Protein Auto test strip (U) [Mass/Vol]Ordered By: Mario Glasgow on 06-14-2022 Protein (U) [Mass/Vol] Negative Negative [facility] Specific gravity Auto test s trip (U) [Rel density]Ordered By: Mario Glasgow on 06-14-2022 Specific gravity (U) [Rel density] 1.013 1.001-1.030 [facility] Squamous epithelial cells de tection in urine sediment by light microscopyOrdered By: Mario Glasgow on 06-14-2022 Epithelial cells.squamous LM Ql (Urine sed) 5-9 [HPF] 0-2 [facility] Urine Cultureon 06-14-2022 Bacteria identified Cx Nom (U) Reason for Exam Urinary frequency Urine ORGANISM: Strep. agalactiae Grp B (O:B) [place] Count <10,000 PERFORMED BY: [place] [address] PATHOLOGIST BENEFIT DIRECTOR LEV HERNÁNDEZ M.D. Normal [facility] Comment on above: Performed By: #### P T, CBC, CMP, PTT #### [facility] [address] [place] [address] Urine bacteria detection by automated methodOrdered By: Mario Glasgow on 06-14-2022 Bacteria Auto Ql (U) 2+ None Seen [facility] Urine clarity by refractomet ry automatedOrdered By: Mario Glasgow on 06-14-2022 Clarity Refractometry automated (U) Cloudy Clear [facility] Urine culture routineOrdered By: Mario Glasgow on 06-14-2022 Bacteria identified Cx Nom (U) Strep. agalactiae Grp B [facility] Urine glucose measurement by automated test strip (mass/volume)Ordered By: Mario Glasgow on 06-14-2022 Glucose Auto test strip (U) [Mass/Vol] Normal mg/dL Normal [facility] Urine hemoglobin detection b y automated test stripOrdered By: Mario Glasgow on 06-14-2022 Hemoglobin Auto test strip Ql (U) Negative Negative [facility] Urine leukocyte esterase det ection by automated test stripOrdered By: Mario Glasgow on 06-14-2022 Leukocyte esterase Auto test strip Ql (U) 3+ Negative [facility] Urobilinogen Auto test strip (U) [Mass/Vol]Ordered By: Mario Glasgow on 06-14-2022 Urobilinogen (U) [Mass/Vol] Normal mg/dL Normal [facility] pH Auto test strip (U)Ordere d By: Mario Glasgow on 06-14-2022 pH (U) 5.5 [pH] 5.0-9.0 [facility] HCG ( test) IA.rapi d Ql (U)Ordered By: Figueroa Galindo on 05-02-2022 HCG ( test) Ql (U) Negative [facility] HCG,Urineon 05-02-2022 Beta HCG ( test) Ql (U) Negative Normal [facility] Comment on above: Result Comment: PERF ORMED BY: [place] [address] PATHOLOGIST BENEFIT DIRECTOR LEV HERNÁNDEZ M.D. Performed By: #### P T, CBC, CMP, PTT #### [facility] [address] [place] [address] Mitchel 05-02-2022 L ----- Specimen: [id number] Received: 05/02/22 Status: ALEJANDRA Travis Num: [id number] Spec Type: Surgical Subm Dr: Rell Garcia DO Tissues: A Uterus w/ or w/o tubes ovaries except neoplastic or prolap (UTERUS/CERVIX) Procedures: HE/4, Gross/Micro L5 Age/ Patient Sex Location Account Attending Physician Sully Enriquez 32/F [place] [id number] Rell Garcia DO SPEC NUM: [id number] RECD: 05/02/22 STATUS: ALEJANDRA TRAVIS NUM: [id number] MEGAN: 05/02/22 [facility] DR: Rell Garcia DO ENTERED: 05/02/22 SABRINA ZENG: RUSS TYPE: Surgical DEPT: S ORDERED: HE/4, [...] in thickness. No myometrial lesions are identified. Floor [employer] [place] sections are submitted in 4 cassettes as follows: A1 - Anterior cervix A2 - Posterior cervix A3 - Anterior endomyometrium A4 - Posterior endomyometrium Specimen: [id number] Received: 05/02/22 Status: ALEJANDRA Travis Num: [id number] Spec Type: Surgical Subm Dr: Rell Garcia DO Tissues: A Uterus w/ or w/o tubes ovaries except neoplastic or prolap (UTERUS/CERVIX) Procedures: HE/4, Gross/Micro L5 Patient: Sully Enriquez [id number] (Continued) Specimen: [id number] Received: 05/02/22 (Continued) Signed (signature on file) Tristan Vázquez MD 05/03/22 1036 Specimen: [id number] Received: 05/02/22 Status: ALEJANDRA Travis Num: [id number] Spec Type: Surgical Subm Dr: Rell Garcia DO Tissues: A Uterus w/ or w/o tubes ovaries except neoplastic or prolap (UTERUS/CERVIX) Procedures: HE/4, Gross/Micro L5 Patient: Sully Enriquez [id number] (Continued) Specimen: [id number] Received: 05/02/22 (Continued) Microscopic Description Four glass slides with H E stained material have been examined. The microscopic findings support the above pathologic diagnosis. CPT Codes 36086 Specimen: [id number] Received: 05/02/22 Status: ALEJANDRA Travis Num: [id number] Spec Type: Surgical Subm Dr: Rell Garcia DO Tissues: A Uterus w/ or w/o tubes ovaries except neoplastic or prolap (UTERUS/CERVIX) Procedures: Gucci GOODSON/Andre L5 Patient: Sully Enriquez [id number] (Continued) Signed (signature on file) Tristan Vázquez MD 05/03/22 1036 [facility] Type and Screenon 05-02-2022 ABO and Rh group Nom (Bld) Blood group B Rh(D) positive Normal [facility] Comment on above: Result Comment: PERF ORMED BY: [facility] [place] [address] PATHOLOGIST BENEFIT DIRECTOR LEV HERNÁNDEZ M.D. CULTURE URINEon 04-25-2022 CULTURE URINE Culture Observations : MODERATE GROWTH OF MIXED GENITAL CRICKET. NO POTENTIAL PATHOGENS SEEN. Normal [facility] Comment on above: Performed By: #### U RCX ####[facility] [id number] [place] [address]Dr. Douglas Tucker ER URINE PROFILEon 3 Bilirubin Ql (U) Negative Normal NEGATIVE [facility] Comment on above: Performed By: #### P REGUCHERYLICRO, ERUR #### [facility] [address] [address] [address] Douglas Tucker Clarity (U) SL CLOUDY Abnormal CLEAR [facility] Comment on above: Performed By: #### P REGU UMICRO, ERUR #### [facility] [address] [address] [address] Douglas Tucker Color (U) YELLOW Normal YELLOW [facility] Comment on above: Performed By: #### P REGU UMICRO, ERUR #### [facility] [address] [address] [address] Douglas Tucker ERUAHD A micrscopic examina tion will be performed if indicated. Normal [facility] Comment on above: Performed By: #### P REGU, UMICRO, ERUR #### [facility] [address] [address] [address] Douglas Tucker Glucose Ql (U) Negative Normal NEGATIVE [facility] Comment on above: Performed By: #### P REGU, UMICRO, ERUR #### [facility] [address] [address] [address] Douglas Tucker Hemoglobin Ql (U) SMALL Abnormal NEGATIVE [facility] Comment on above: Performed By: #### P REGU UMICRO, ERUR #### [facility] [address] [address] [address] Douglas Tucker Ketones Ql (U) Negative Normal NEGATIVE [facility] Comment on above: Performed By: #### P BLAINE GOODWIN, ERUR #### [facility] [address] [address] [address] Douglas Tucker LEUKOCYTES Negative Normal NEGATIVE [facility] Comment on above: Performed By: #### P BLAINE GOODWIN, ERUR #### [facility] [address] [address] [address] Douglas Tucker Nitrite Ql (U) Negative Normal NEGATIVE [facility] Comment on above: Performed By: #### P BLAINE GOODWIN, ERUR #### [facility] [address] [place] [address] Dr. Douglas Tucker pH (U) 6.0 [pH] Normal 5-9 [facility] Comment on above: Performed By: #### P BLAINE GOODWIN, ERUR #### [facility] [address] [address] [address] Douglas Tucker SPEC GRAVITY >=1.030 Abnormal 1.005-<=1.0 25 [facility] Comment on above: Performed By: #### BLAINE MALAVE, ERUR #### [facility] [address] [address] [address] Douglas Tucker UA PROTEIN TRACE Normal NEGATIVE/ TRACE [facility] Comment on above: Performed By: #### P BLAINE GOODWIN, ERUR #### [facility] [address] [address] [address] Douglas Tucker UR MICRO IND INDICATED Normal [facility] Comment on above: Performed By: #### P BLAINE GOODWIN, ERUR #### [facility] [address] [place] [address] Dr. Douglas Tucker Urobilinogen Qn (U) 0.2 {Elba'U}/dL Normal 0.2 - 1. 0 [facility] Comment on above: Performed By: #### P BLAINE GOODWIN, ERUR #### [facility] [address] [address] [address] Douglas Tucker URon 04-25-2022 , QUAL Negative Normal NEGATIVE [facility] Comment on above: Performed By: #### P REGU, UMICRO, ERUR #### [facility] [address] [address] [address] Douglas Tucker URINE MICROSCOPIC ONLYon BACTERIA MODERATE Abnormal NONE SEEN [facility] Comment on above: Performed By: #### P REGU, UMICRO, ERUR #### [facility] [address] [address] [address] Duoglas Tucker Bacteria identified Cx Nom (U) INDICATED Normal [facility] Comment on above: Performed By: #### P REGU, UMICRO, ERUR #### [facility] [address] [place] [address] Dr. Douglas Tucker CAST NONE SEEN Normal NONE SEEN [facility] Comment on above: Performed By: #### P REGU, UMICRO, ERUR #### [facility] [address] [address] [address] Douglas Tucker Crystals LM Nom (Urine sed) NONE SEEN Normal NONE SEEN [facility] Comment on above: Performed By: #### P REGU, UMICRO, ERUR #### [facility] [address] [place] [address] Dr. Douglas Tucker Epithelial cells LM Ql (Urine sed) MODERATE Abnormal NONE SEEN /RARE [facility] Comment on above: Performed By: #### P REGU, UMICRO, ERUR #### [facility] [address] [address] [address] Douglas Tucker MUCOUS NONE SEEN Normal NONE SEEN [facility] Comment on above: Performed By: #### P REGU, UMICRO, ERUR #### [facility] [address] [place] [address] Dr. Douglas Tucker RBC 2-5 Abnormal 0-2 [facility] Comment on above: Performed By: #### P REGU, UMICRO, ERUR #### [facility] [address] [place], [place] [address] Dr. Douglas Tucker WBC 0-2 Abnormal NONE SEEN [facility] Comment on above: Performed By: #### P BLAINE GOODWIN ERUR #### [facility] [address] [place], [place] [address] Dr. Douglas Tucker COVID-19 Antigenon 3 COVID-19 [...] developed and its performance characteristic determined by [employer] and validated at [facility]. This test has not been FDA [...] for SARS Antigen by LILLY PERFORMED BY: [address] [place] [address] PATHOLOGIST BENEFIT DIRECTOR LEV HERNÁNDEZ M.D. [facility] Comment on above: Performed By: #### C OVID-19 KEVIN, SOFIANEG #### [facility] [address] [place] [address] [place] COVID-19 SOFIAOrdered By: Adal Garcia on 04-23-2022 SARS-CoV+SARS-CoV-2 (COVID-19) Ag IA.rapid Ql (Resp) Negative Negative [facility] Comment on above: This is a duplicate Kevin SARS Antigen (LILLY) result to be used for statistical tracking purpose only. No Panel InformationOrdered By: Rell Garcia on 04-23-2022 SARS Antigen (LFIA) [facility] Kevin Ag Negativeon 04-23-19 23 Kevin Ag Negative Negative Normal Negative [facility] Comment on above: Result Comment: This is a duplicate Kevin SARS Antigen (LILLY) result to be used for statistical tracking purpose only. PERFORMED BY: [place] [address] PATHOLOGIST BENEFIT DIRECTOR LEV HERNÁNDEZ M.D. Performed By: #### P T, CBC, CMP, PTT #### [facility] [address] Activated partial thrombopla stin time (aPTT) in platelet poor plasma by coagulation aOrdered By: Rell Garcia on 04-10-2022 aPTT Coag (PPP) [Time] 31.6 s 25.1-36.5 [facility] Albumin [Mass/volume] in Ser um or PlasmaOrdered By: Rell Garcia on 04-10-2022 Albumin [Mass/Vol] 4.4 g/dL 3.2-5.5 [facility] Automated erythrocytes count in urine sediment (number/area)Ordered By: Rell Garcia on 04-10-2022 RBC Auto (Urine sed) [#/Area] None seen [HPF] 0-4 [facility] Automated leukocytes count i n urine sediment (number/area)Ordered By: Rell Garcia on 04-10-2022 WBC Auto (Urine sed) [#/Area] 20-49 [HPF] 0-4 [facility] Automated urine hyaline cast s count (number/volume)Ordered By: Rell Garcia on 04-10-2022 Hyaline casts Auto (U) [#/Vol] None seen [LPF] 0-1 [facility] Basophils Auto (Bld) [#/Vol] Ordered By: Rell Garcia on 04-10-2022 Basophils (Bld) [#/Vol] 0.0 10*3/uL 0.0-0.2 [facility] Basophils/100 WBC Auto (Bld) Ordered By: Rell Garcia on 04-10-2022 Basophils/100 WBC (Bld) 0.4 % . [facility] Bilirubin Test strip Ql (U)O rdered By: Rell Garcia on 04-10-2022 Bilirubin Ql (U) Negative Negative [facility] Casts typing in urine sedime nt by light microscopyOrdered By: Rlel Garcia on 04-10-2022 Casts LM Nom (Urine sed) None seen [LPF] None Seen [facility] Color Auto (U)Ordered By: Adal Garcia on 04-10-2022 Color (U) Yellow Yellow [facility] Complete Blood Count Auto Di ffon 04-10-2022 Basophils (Bld) [#/Vol] 0.0 10*3/uL Normal 0.0-0.2 [facility] Comment on above: Result Comment: PERF ORMED BY: [place] [address] PATHOLOGIST BENEFIT DIRECTOR LEV HERNÁNDEZ M.D. Performed By: #### P T, CBC, CMP, PTT #### [facility] [address] [place] [address] Basophils/100 WBC (Bld) 0.4 % Normal . [facility] Comment on above: Performed By: #### P T, CBC, CMP, PTT #### [facility] [address] [place] [address] [place] Eosinophils (Bld) [#/Vol] 0.3 10*3/uL Normal 0.0-0.45 [facility] Comment on above: Performed By: #### P T, CBC, CMP, PTT #### [place] [id number] [place] Eosinophils/100 WBC (Bld) 3.6 % Normal . [facility] Comment on above: Performed By: #### P T, CBC, CMP, PTT #### [address] Erythrocyte distribution width (RBC) [Ratio] 13.0 % Normal 11.9-15.3 [facility] Comment on above: Performed By: #### P T, CBC, CMP, PTT #### [address] Hematocrit (Bld) [Volume fraction] 44.2 % Normal 34.0-46.4 [facility] Comment on above: Performed By: #### P T, CBC, CMP, PTT #### [address] Hemoglobin (Bld) [Mass/Vol] 14.8 g/dL Normal 11.8-15.4 [facility] Comment on above: Performed By: #### P T, CBC, CMP, PTT #### [address] Lymphocytes (Bld) [#/Vol] 3.0 10*3/uL Normal 1.00-4.8 [facility] Comment on above: Performed By: #### P T, CBC, CMP, PTT #### [address] Lymphocytes/100 WBC (Bld) 35.3 % Normal . [facility] Comment on above: Performed By: #### P T, CBC, CMP, PTT #### [address] MCH (RBC) [Entitic mass] 31.8 pg Normal 24.7-34.3 [facility] Comment on above: Performed By: #### P T, CBC, CMP, PTT #### [address] MCV (RBC) [Entitic vol] 95.0 fL Normal 80-100 [facility] Comment on above: Performed By: #### P T, CBC, CMP, PTT #### [facility] [address] Mean Corpuscular HGB Conc 33.5 g/dL Normal 32.0-35.0 [facility] Comment on above: Performed By: #### P T, CBC, CMP, PTT #### [facility] [address] Monocytes (Bld) [#/Vol] 0.6 10*3/uL Normal 0.0-0.8 [facility] Comment on above: Performed By: #### P T, CBC, CMP, PTT #### [facility] [address] [place] [address] Monocytes/100 WBC (Bld) 7.0 % Normal . [facility] Comment on above: Performed By: #### P T, CBC, CMP, PTT #### [address] Neutrophils (Bld) [#/Vol] 4.6 10*3/uL Normal 1.8-7.7 [facility] Comment on above: Performed By: #### P T, CBC, CMP, PTT #### [address] Neutrophils/100 WBC (Bld) 53.7 % Normal . [facility] Comment on above: Performed By: #### P T, CBC, CMP, PTT #### [address] NRBC% 0.1 /100{WBC} Normal 0-0.5 [facility] Comment on above: Performed By: #### P T, CBC, CMP, PTT #### [facility] [address] [place] [address] Platelet mean volume (Bld) [Entitic vol] 9.1 fL Normal 6.3-10.7 [facility] Comment on above: Performed By: #### P T, CBC, CMP, PTT #### [facility] [address] [place] [address] [place] Platelets (Bld) [#/Vol] 192 10*3/uL Normal 150-450 [facility] Comment on above: Performed By: #### P T, CBC, CMP, PTT #### [facility] [address] [place] [address] RBC (Bld) [#/Vol] 4.65 10*6/uL Normal 3.60-5.00 [facility] Comment on above: Performed By: #### P T, CBC, CMP, PTT #### [address] WBC (Bld) [#/Vol] 8.6 10*3/uL Normal 3.8-11.6 [facility] Comment on above: Performed By: #### P T, CBC, CMP, PTT #### [address] Comprehensive Metabolic Pane mitchel 04-10-2022 Albumin [Mass/Vol] 4.4 g/dL Normal 3.2-5.5 [facility] Comment on above: Performed By: #### P T, CBC, CMP, PTT #### [address] Albumin/Globulin [Mass ratio] 1.4 {ratio} Normal [facility] Comment on above: Performed By: #### P T, CBC, CMP, PTT #### [address] ALP [Catalytic activity/Vol] 47 U/L Normal 32-92 [facility] Comment on above: Result Comment: PERF ORMED BY: [place] [address] PATHOLOGIST BENEFIT DIRECTOR LEV HERNÁNDEZ M.D. Performed By: #### P T, CBC, CMP, PTT #### [address] ALT [Catalytic activity/Vol] 19 U/L Normal 10-60 [facility] Comment on above: Performed By: #### P T, CBC, CMP, PTT #### [address] Anion gap [Moles/Vol] 13.2 mmol/L Normal 6.0-15.0 [facility] Comment on above: Performed By: #### P T, CBC, CMP, PTT #### [facility] [address] AST [Catalytic activity/Vol] 18 U/L Normal 10-42 [facility] Comment on above: Performed By: #### P T, CBC, CMP, PTT #### [facility] [address] Bilirubin [Mass/Vol] 0.7 mg/dL Normal 0.3-1.2 [facility] Comment on above: Performed By: #### P T, CBC, CMP, PTT #### [address] Calcium [Mass/Vol] 9.5 mg/dL Normal 8.2-10.2 [facility] Comment on above: Performed By: #### P T, CBC, CMP, PTT #### [facility] [address] [place] [address] Chloride [Moles/Vol] 106 mmol/L Normal 95-114 [facility] Comment on above: Performed By: #### P T, CBC, CMP, PTT #### [address] CO2 [Moles/Vol] 18.9 mmol/L Low 22.0-30.0 [facility] Comment on above: Performed By: #### P T, CBC, CMP, PTT #### [facility] [address] [place] [address] [place] Creatinine [Mass/Vol] 0.80 mg/dL Normal 0.44-1.03 [facility] Comment on above: Performed By: #### P T, CBC, CMP, PTT #### [place] [address] [place] Estimated GFR ( Margi > 60 Normal [facility] Comment on above: Result Comment: GFR estimated reference range: According to KDOQI guidelines, <60 ml/min/1.73m2 is sufficient to diagnose a patient with chronic kidney disease. Performed By: #### P T, CBC, CMP, PTT #### [facility] [address] Estimated GFR (Non- Am > 60 Normal [facility] Comment on above: Performed By: #### P T, CBC, CMP, PTT #### [facility] [address] Globulin (S) [Mass/Vol] 3.1 g/dL Normal F [facility] Comment on above: Performed By: #### P T, CBC, CMP, PTT #### [address] Glucose [Mass/Vol] 88 mg/dL Normal 70-100 [facility] Comment on above: Result Comment: [place] Glucose Reference Range is dependent on time and content of last meal. Glucose of more than 200 mg/dL in a nonstressed, ambulatory subject supports the diagnosis of Diabetes Mellitus. ADA recommended reference range Performed By: #### P T, CBC, CMP, PTT #### [facility] [address] Potassium [Moles/Vol] 4.1 mmol/L Normal 3.5-5.1 [facility] Comment on above: Performed By: #### P T, CBC, CMP, PTT #### [facility] [address] Protein [Mass/Vol] 7.5 g/dL Normal 6.1-7.9 [facility] Comment on above: Performed By: #### P T, CBC, CMP, PTT #### [facility] [address] Sodium [Moles/Vol] 134 mmol/L Low 136-146 [facility] Comment on above: Performed By: #### P T, CBC, CMP, PTT #### [facility] [address] Urea nitrogen [Mass/Vol] 14 mg/dL Normal 9-23 [facility] Comment on above: Performed By: #### P T, CBC, CMP, PTT #### [facility] [address] [place] [address] [place] Creatinine and Glomerular fi ltration rate.predicted panel (S/P/Bld)Ordered By: Rell Garcia on 04-10-2022 Creatinine [Mass/Vol] 0.80 mg/dL 0.44-1.03 [facility] Dipstick and Microscopicon 1 06-11-2021 Appearance (U) Cloudy Critically abnormal Clear [facility] Comment on above: Order Comment: Name Collection Type:: Clean-Voided Midstream Performed By: #### C UU, ADDONUAPLUS #### [facility] [address] [place] [address] [place] Bacteria,Urine 2+ High None Seen [facility] Comment on above: Order Comment: Name Collection Type:: Clean-Voided Midstream Performed By: #### C UU, ADDONUAPLUS #### [facility] [address] [place] [address] [place] Bilirubin,Urine Negative Normal Negative [facility] Comment on above: Order Comment: Name Collection Type:: Clean-Voided Midstream Performed By: #### C UU, ADDONUAPLUS #### [facility] [address] [place] [address] [place] Color (U) Yellow Normal Yellow [facility] Comment on above: Order Comment: Name Collection Type:: Clean-Voided Midstream Performed By: #### C UU, ADDONUAPLUS #### [facility] [address] [place] [address] [place] Glucose Ql (U) Normal Normal Normal [facility] Comment on above: Order Comment: Name Collection Type:: Clean-Voided Midstream Performed By: #### C UU, ADDONUAPLUS #### [facility] [address] [place] [address] [place] Hyaline Casts,Urine None Seen Normal 0-1 [facility] Comment on above: Order Comment: Name Collection Type:: Clean-Voided Midstream Performed By: #### C UU, ADDONUAPLUS #### [facility] [address] [place] [address] [place] Ketones Ql (U) Negative Normal Negative [facility] Comment on above: Order Comment: Name Collection Type:: Clean-Voided Midstream Performed By: #### C UU, ADDONUAPLUS #### [address] Leukocyte esterase Test strip Ql (U) 3+ High Negative [facility] Comment on above: Order Comment: Name Collection Type:: Clean-Voided Midstream Performed By: #### C UU, ADDONUAPLUS #### [address] Nitrite,Urine Negative Normal Negative [facility] Comment on above: Order Comment: Name Collection Type:: Clean-Voided Midstream Performed By: #### C UU, ADDONUAPLUS #### [address] Occult Blood,Urine Negative Normal Negative [facility] Comment on above: Order Comment: Name Collection Type:: Clean-Voided Midstream Result Comment: PERF ORMED BY: [place] [address] PATHOLOGIST BENEFIT DIRECTOR LEV HERNÁNDEZ M.D. Performed By: #### C UU, ADDONUAPLUS #### [address] Other Casts,Urine None Seen Normal None Seen [facility] Comment on above: Order Comment: Name Collection Type:: Clean-Voided Midstream Result Comment: PERF ORMED BY: [place] [address] PATHOLOGIST BENEFIT DIRECTOR LEV HERNÁNDEZ M.D. Performed By: #### C UU, ADDONUAPLUS #### [address] pH (U) 5.5 [pH] Normal 5.0-9.0 [facility] Comment on above: Order Comment: Name Collection Type:: Clean-Voided Midstream Performed By: #### C UU, ADDONUAPLUS #### [address] Protein,Urine Negative Normal Negative [facility] Comment on above: Order Comment: Name Collection Type:: Clean-Voided Midstream Performed By: #### C UU, ADDONUAPLUS #### [facility] [address] [place] [address] RBC,Urine None Seen Normal 0-4 [facility] Comment on above: Order Comment: Name Collection Type:: Clean-Voided Midstream Performed By: #### C UU, ADDONUAPLUS #### [address] Specificy [place],Urine 1.016 Normal 1.001-1.030 [facility] Comment on above: Order Comment: Name Collection Type:: Clean-Voided Midstream Performed By: #### C UU, ADDONUAPLUS #### [address] Squamous Epithelial Cell,Urine 10-19 High 0-2 [facility] Comment on above: Order Comment: Name Collection Type:: Clean-Voided Midstream Performed By: #### C UU, ADDONUAPLUS #### [facility] [address] [place] [address] Urobilinogen,Urine Normal Normal Normal [facility] Comment on above: Order Comment: Name Collection Type:: Clean-Voided Midstream Performed By: #### C UU, ADDONUAPLUS #### [facility] [address] [place] [address] WBC,Urine 20-49 High 0-4 [facility] Comment on above: Order Comment: Name Collection Type:: Clean-Voided Midstream Performed By: #### C UU, ADDONUAPLUS #### [facility] [address] [place] [address] [place] Eosinophils Auto (Bld) [#/Vo l]Ordered By: Rell Garcia on 04-10-2022 Eosinophils (Bld) [#/Vol] 0.3 10*3/uL 0.0-0.45 [facility] Eosinophils/100 WBC Auto (Bl d)Ordered By: Rell Garcia on 04-10-2022 Eosinophils/100 WBC (Bld) 3.6 % . [facility] Erythrocyte distribution wid th Auto (RBC) [Ratio]Ordered By: Rell Garcia on 04-10-2022 Erythrocyte distribution width (RBC) [Ratio] 13.0 % 11.9-15.3 [facility] Estimated glomerular filtrat ion rate (GFR) non- AmericanOrdered By: Rell Garcia on 04-10-2022 GFR/1.73 sq M.predicted among non-blacks MDRD (S/P/Bld) [Vol rate/Area] > 60 mL/Min [facility] Globulin Calc (S) [Mass/Vol] Ordered By: Rell Garcia on 04-10-2022 Globulin (S) [Mass/Vol] 3.1 g/dL F [facility] Hematocrit Auto (Bld) [Volum e fraction]Ordered By: Rell Garcia on 04-10-2022 Hematocrit (Bld) [Volume fraction] 44.2 % 34.0-46.4 [facility] Hemoglobin [Mass/volume] in BloodOrdered By: Rell Garcia on 04-10-2022 Hemoglobin (Bld) [Mass/Vol] 14.8 g/dL 11.8-15.4 [facility] Ketones Auto test strip (U) [Mass/Vol]Ordered By: Rell Garcia on 04-10-2022 Ketones (U) [Mass/Vol] Negative Negative Fi [facility] - CoagulationOrde red By: Rell Garcia on 04-10-2022 PT Coag (PPP) [Time] 10.8 s 9.0-12.9 [facility] Leukocytes [#/volume] correc armaan for nucleated erythrocytes in Blood by Automated counOrdered By: Rell Garcia on 04-10-2022 WBC corrected for nucl RBC Auto (Bld) [#/Vol] 8.6 10*3/uL 3.8-11.6 [facility] Lymphocytes Auto (Bld) [#/Vo l]Ordered By: Rell Garcia on 04-10-2022 Lymphocytes (Bld) [#/Vol] 3.0 10*3/uL 1.00-4.8 [facility] Lymphocytes/100 WBC Auto (Bl d)Ordered By: Rell Garcia on 04-10-2022 Lymphocytes/100 WBC (Bld) 35.3 % . [facility] MCH Auto (RBC) [Entitic mass ]Ordered By: Rell Garcia on 04-10-2022 MCH (RBC) [Entitic mass] 31.8 pg 24.7-34.3 [facility] MCHC Auto (RBC) [Mass/Vol]Or dered By: Rell Garcia on 04-10-2022 MCHC (RBC) [Mass/Vol] 33.5 g/dL 32.0-35.0 [facility]ir [facility] MCV Auto (RBC) [Entitic vol] Ordered By: Rell Garcia on 04-10-2022 MCV (RBC) [Entitic vol] 95.0 fL 80-100 F [facility] Monocytes Auto (Bld) [#/Vol] Ordered By: Rell Garcia on 04-10-2022 Monocytes (Bld) [#/Vol] 0.6 10*3/uL 0.0-0.8 [facility] Monocytes/100 WBC Auto (Bld) Ordered By: Rell Garcia on 04-10-2022 Monocytes/100 WBC (Bld) 7.0 % . F [facility] Neutrophils Auto (Bld) [#/Vo l]Ordered By: Rell Garcia on 04-10-2022 Neutrophils (Bld) [#/Vol] 4.6 10*3/uL 1.8-7.7 [facility] Neutrophils/100 WBC Auto (Bl d)Ordered By: Rell Garcia on 04-10-2022 Neutrophils/100 WBC (Bld) 53.7 % . [facility] Nitrite Test strip Ql (U)Ord ered By: Rell Garcia on 04-10-2022 Nitrite Ql (U) Negative Negative [facility] No Panel InformationOrdered By: Rell Garcia on 04-10-2022 Estimated GFR () > 60 mL/Min [facility] Comment on above: GFR estimated refere nce range: According to KDOQI guidelines, <60 ml/min/1.73m2 is sufficient to diagnose a patient with chronic kidney disease. Pharmacy Creatinine Clearance (Chem N/A [facility] Nucleated erythrocytes [Pres ence] in Blood by Automated countOrdered By: Rell Garcia on 04-10-2022 Nucleated RBC Auto Ql (Bld) 0.1 /100{WBC} 0-0.5 [facility] PST Type and Screenon 2021 ABO and Rh group Nom (Bld) Blood group B Rh(D) positive Normal [facility] Comment on above: Order Comment: Date of Surgery: [id number] Partial Thromboplastin Timeo n 04-10-2022 aPTT Coag (Bld) [Time] 31.6 s Normal 25.1-36.5 [facility] Comment on above: Result Comment: PERF ORMED BY: [place] [address] PATHOLOGIST BENEFIT DIRECTOR LEV HERNÁNDEZ M.D. Performed By: #### P T, CBC, CMP, PTT #### [address] Platelet mean volume Auto (B ld) [Entitic vol]Ordered By: Rell Garcia on 04-10-2022 Platelet mean volume (Bld) [Entitic vol] 9.1 fL 6.3-10.7 [facility] Platelet poor plasma interna tional normalized ratio (INR) by coagulation assay (relatOrdered By: Rell Garcia on 04-10-2022 INR Coag (PPP) [Relative time] 1.0 {INR} [facility] Comment on above: INR Therapeutic Rang [...] 04-10-2022 Platelets (Bld) [#/Vol] 192 10*3/uL 150-450 [facility] Protein Auto test strip (U) [Mass/Vol]Ordered By: Rell Garcia on 04-10-2022 Protein (U) [Mass/Vol] Negative Negative Fi [facility] Protein [Mass/volume] in Ser um or PlasmaOrdered By: Rell Garcia on 04-10-2022 Protein [Mass/Vol] 7.5 g/dL 6.1-7.9 [facility] Prothrombin Time INRon 04-10 INR Coag (PPP) [Relative time] 1.0 {INR} Normal [facility] Comment on above: Result Comment: INR [...] #### P T, CBC, CMP, PTT #### [facility] [address] PT Coag (PPP) [Time] 10.8 s Normal 9.0-12.9 [facility] Comment on above: Performed By: #### P T, CBC, CMP, PTT #### [facility] [address] RBC Auto (Bld) [#/Vol]Ordere d By: Rell Garcia on 04-10-2022 RBC (Bld) [#/Vol] 4.65 10*6/uL 3.60-5.00 [facility] Serum or plasma alanine venegas otransferase measurement without P-5'-P (enzymatic activiOrdered By: Rell Garcia on 04-10-2022 ALT No additional P-5'-P [Catalytic activity/Vol] 19 U/L 10-60 [facility] Serum or plasma albumin/glob ulin mass ratioOrdered By: Rell Garcia on 04-10-2022 Albumin/Globulin [Mass ratio] 1.4 {ratio} [facility] Serum or plasma alkaline molina sphatase measurement (enzymatic activity/volume)Ordered By: Rell Garcia on 04-10-2022 ALP [Catalytic activity/Vol] 47 U/L 32-92 [facility] Serum or plasma anion gap de terminationOrdered By: Rell Garcia on 04-10-2022 Anion gap [Moles/Vol] 13.2 mmol/L 6.0-15.0 [facility] Serum or plasma aspartate am inotransferase measurement (enzymatic activity/volume)Ordered By: Rell Garcia on 04-10-2022 AST [Catalytic activity/Vol] 18 U/L 10-42 [facility] Serum or plasma calcium liam urement (mass/volume)Ordered By: Rell Garcia on 04-10-2022 Calcium [Mass/Vol] 9.5 mg/dL 8.2-10.2 [facility] Serum or plasma chloride fransisca surement (moles/volume)Ordered By: Rell Garcia on 04-10-2022 Chloride [Moles/Vol] 106 mmol/L 95-114 [facility] Serum or plasma glucose liam urement (mass/volume)Ordered By: Rell Garcia on 04-10-2022 Glucose [Mass/Vol] 88 mg/dL 70-100 [facility] Comment on above: ADA recommended refe rence rangeRandom Glucose Reference Range is dependent on time and content of last meal. Glucose of more than 200 mg/dL in a nonstressed, ambulatory subject supports the diagnosis of Diabetes Mellitus. Serum or plasma potassium me asurement (moles/volume)Ordered By: Rell Garcia on 04-10-2022 Potassium [Moles/Vol] 4.1 mmol/L 3.5-5.1 [facility] Serum or plasma sodium measu rement (moles/volume)Ordered By: Rell Garcia on 04-10-2022 Sodium [Moles/Vol] 134 mmol/L 136-146 [facility] Serum or plasma total biliru bin measurement (mass/volume)Ordered By: Rell Garcia on 04-10-2022 Bilirubin [Mass/Vol] 0.7 mg/dL 0.3-1.2 [facility] Serum or plasma total carbon dioxide measurement (moles/volume)Ordered By: Rell Garcia on 04-10-2022 CO2 [Moles/Vol] 18.9 mmol/L 22.0-30.0 [facility] Serum or plasma urea nitroge n measurement (mass/volume)Ordered By: Rell Garcia on 04-10-2022 Urea nitrogen [Mass/Vol] 14 mg/dL 9-23 [facility] Specific gravity Auto test s trip (U) [Rel density]Ordered By: Rell Garcia on 04-10-2022 Specific gravity (U) [Rel density] 1.016 1.001-1.030 [facility] Squamous epithelial cells de tection in urine sediment by light microscopyOrdered By: Rell Garcia on 04-10-2022 Epithelial cells.squamous LM Ql (Urine sed) 10-19 [HPF] 0-2 [facility] Urine Cultureon 04-10-2022 Bacteria identified Cx Nom (U) 15,000 colonies/ml mixed bacterial skin contaminants 2 Days PERFORMED BY: [place] [address] PATHOLOGIST BENEFIT DIRECTOR LEV HERNÁNDEZ M.D. [facility] Comment on above: Performed By: #### C UU, ADDONUAPLUS #### [address] Urine bacteria detection by automated methodOrdered By: Rell Garcia on 04-10-2022 Bacteria Auto Ql (U) 2+ None Seen [facility] Urine clarity by refractomet ry automatedOrdered By: Rell Garcia on 04-10-2022 Clarity Refractometry automated (U) Cloudy Clear [facility] Urine culture routineOrdered By: Rell Garcia on 04-10-2022 Bacteria identified Cx Nom (U) 2 Days [facility] Urine glucose measurement by automated test strip (mass/volume)Ordered By: Rell Garcia on 04-10-2022 Glucose Auto test strip (U) [Mass/Vol] Normal mg/dL Normal [facility] Urine hemoglobin detection b y automated test stripOrdered By: Rell Garcia on 04-10-2022 Hemoglobin Auto test strip Ql (U) Negative Negative [facility] Urine leukocyte esterase det ection by automated test stripOrdered By: Rell Garcia on 04-10-2022 Leukocyte esterase Auto test strip Ql (U) 3+ Negative [facility] Urobilinogen Auto test strip (U) [Mass/Vol]Ordered By: Rell Garcia on 04-10-2022 Urobilinogen (U) [Mass/Vol] Normal mg/dL Normal [facility] WBC Auto (Bld) [#/Vol]Ordere d By: Rell Garcia on 04-10-2022 WBC (Bld) [#/Vol] 8.6 10*3/uL 3.8-11.6 [facility] pH Auto test strip (U)Ordere d By: Rell Garcia on 04-10-2022 pH (U) 5.5 [pH] 5.0-9.0 [facility] XR ANKLE RT MIN 3 VIEWSon [...] by: LIZZIE YU Date: 2022-03-28 22:01 Normal [facility] XR SHOULDER LT 2V or >on XR [...] by: JASS GRISSOM Date: 2022-02-10 21:41 Normal [facility] CBC AUTO DIFFon 01-28-2022 BASO # 0.0 103/ul Normal 0.0-0.1 [facility] Comment on above: Performed By: #### C BC ####[facility] [address] [place] [address]DrHernandez Douglas Tucker Basophils/100 WBC (Bld) 0.7 % Normal 0.2-2.0 [facility] Comment on above: Performed By: #### C BC ####[facility] [address] [place] [id number]. Douglas Tucker EO # 0.1 103/ul Normal 0.0-0.7 [facility] Comment on above: Performed By: #### C BC ####[facility] [address] [place] [address]Dr. Douglas Tucker Eosinophils/100 WBC (Bld) 2.2 % Normal 0.9-7.0 [facility] Comment on above: Performed By: #### C BC ####[facility] [address] [place], [place] [address]Dr. Douglas Tucker Erythrocyte distribution width (RBC) [Ratio] 12.0 % Normal 11.0-15.0 [facility] Comment on above: Performed By: #### C BC ####[facility] [address] [place], [place] [address]Dr. Douglas Tucker Hematocrit (Bld) [Volume fraction] 41.3 % Normal 36.0-48.0 [facility] Comment on above: Performed By: #### C BC ####[facility] [address] [place], [place] [address]Dr. Douglas Tucker Hemoglobin (Bld) [Mass/Vol] 13.7 g/dL Normal 12.0-16.0 [facility] Comment on above: Performed By: #### C BC ####[facility] [address] [place], [place] [address]Dr. Douglas Tucker IG # 0.01 10e3/ul Normal 0.00-0.03 [facility] Comment on above: Performed By: #### C BC ####[facility] [address] [place], [place] [address]Dr. Douglas Tucker IG % 0.2 % Normal 0.0-0.5 [facility] Comment on above: Performed By: #### C BC ####[facility] [address] [place], [place] [address]Dr. Douglas Tucker LYMPH # 2.1 103/ul Normal 1.2-3.8 [facility] Comment on above: Performed By: #### C BC ####[facility] [address] [place], [place] [address]Dr. Douglas Tucker Lymphocytes/100 WBC (Bld) 38.5 % Normal 20.5-60.0 [facility] Comment on above: Performed By: #### C BC ####[facility] [address] [place] [address]Dr. Douglas Tucker MANUAL DIFF REQ NO Normal [facility] Comment on above: Performed By: #### C BC ####[facility] [address] [place] [address]Dr. Douglas Tucker MCH (RBC) [Entitic mass] 31.9 pg Normal 26.7-34.0 [facility] Comment on above: Performed By: #### C BC ####[facility] [address] [place] [address]Dr. Douglas Tucker MCHC (RBC) [Mass/Vol] 33.2 g/dL Normal 29.9-35.2 [facility] Comment on above: Performed By: #### C BC ####[facility] [address] [place] [address]Dr. Douglas Tucker MCV (RBC) [Entitic vol] 96.0 fL Normal 81.0-99.0 [facility] Comment on above: Performed By: #### C BC ####[facility] [address] [place] [address]Dr. Douglas Tucker MONO # 0.4 103/ul Normal 0.3-0.8 [facility] Comment on above: Performed By: #### C BC ####[facility] [address] [place] [address]Dr. Douglas Tucker Monocytes/100 WBC (Bld) 7.8 % Normal 1.7-12.0 [facility] Comment on above: Performed By: #### C BC ####[facility] [address] [place], [place] [address]Dr. Douglas Tucker NEUT # 2.8 103/ul Normal 1.4-6.5 [facility] Comment on above: Performed By: #### C BC ####[facility] [address] [place], [place] [address]Dr. Douglas Tucker Neutrophils/100 WBC (Bld) 50.6 % Normal 43.0-75.0 [facility] Comment on above: Performed By: #### C BC ####[facility] [address] [place] [address]Dr. Umuana Tucker Platelet mean volume (Bld) [Entitic vol] 10.7 fL Normal 9.5-13.5 [facility] Comment on above: Performed By: #### C BC ####[facility] [address] [place] [address]Dr. Douglas Tucker PLT 189 103/ul Normal 150-450 [facility] Comment on above: Performed By: #### C BC ####[facility] [address] [place] [address]Dr. Douglas Tucker RBC 4.30 106/ul Normal 4.20-5.40 [facility] Comment on above: Performed By: #### C BC ####[facility] [address] [place], [place] [address]Dr. Douglas Tucker WBC 5.5 103/ul Normal 4.0-11.0 [facility] Comment on above: Performed By: #### C BC ####[facility] [address] [place], [place] [address]DrHernandez Tucker CULTURE URINEon 01-28-2022 CULTURE URINE Culture Observations : MODERATE GROWTH OF MIXED GENITAL CRICKET. NO POTENTIAL PATHOGENS SEEN. Normal [facility] Comment on above: Performed By: #### U RCX ####[facility] [address] [place] [address]Dr. Douglas Tucker ER URINE PROFILEon 2 Bilirubin Ql (U) Negative Normal NEGATIVE [facility] Comment on above: Performed By: #### U MICRO, ERUR #### [facility] [address] [place] [address] Dr. Douglas Tucker Clarity (U) CLEAR Normal CLEAR [facility] Comment on above: Performed By: #### U MICRO, ERUR #### [facility] [address] [place] [address] Dr. Douglas Tucker Color (U) LT. YELLOW Normal YELLOW [facility] Comment on above: Performed By: #### U MICRO, ERUR #### [facility] [address] [place] [address] [address] Douglas CAMPOVERDEAHD A micrscopic examina tion will be performed if indicated. Normal [facility] Comment on above: Performed By: #### U MICRO, ERUR #### [facility] [address] [place] [address] [address] Douglas Tucker Glucose Ql (U) Negative Normal NEGATIVE [facility] Comment on above: Performed By: #### U MICRO, ERUR #### [facility] [address] [place] [address] [address] Douglas Tucker Hemoglobin Ql (U) TRACE-INTACT Abnormal NEGATIVE [facility] Comment on above: Performed By: #### U MICRO, ERUR #### [facility] [address] [place] [address] Dr. Douglas Tucker Ketones Ql (U) Negative Normal NEGATIVE [facility] Comment on above: Performed By: #### U MICRO, ERUR #### [facility] [address] [place] [address] Dr. Douglas Tucker LEUKOCYTES TRACE Abnormal NEGATIVE [facility] Comment on above: Performed By: #### U MICRO, ERUR #### [facility] [address] [place] [address] Dr. Douglas Tucker Nitrite Ql (U) Negative Normal NEGATIVE [facility] Comment on above: Performed By: #### U MICRO, ERUR #### [facility] [address] [place] [address] [address] Douglas Tucker pH (U) 6.5 [pH] Normal 5-9 [facility] Comment on above: Performed By: #### U MICRO, ERUR #### [facility] [address] [place] [address] Dr. Douglas Tucker SPEC GRAVITY 1.020 Normal 1.005-<=1.0 25 [facility] Comment on above: Performed By: #### U MICRO, ERUR #### [facility] [address] [place] [address] Dr. Douglas Tucker UA PROTEIN Negative Normal NEGATIVE/ TRACE [facility] Comment on above: Performed By: #### U MICRO, ERUR #### [facility] [address] [place] [address] [address] Douglas Tucker UR MICRO IND INDICATED Normal [facility] Comment on above: Performed By: #### U MICRO, ERUR #### [facility] [address] [place] [address] [address] Douglas Tucker Urobilinogen Qn (U) 0.2 {Elba'U}/dL Normal 0.2 - 1. 0 [facility] Comment on above: Performed By: #### U MICRO, ERUR #### [facility] [address] [place] [address] [address] Douglas Tucker PROF 14(COMP METB)on 022 Albumin [Mass/Vol] 3.9 g/dL Normal 3.4-5.0 [facility] Comment on above: Performed By: #### C MP ####[facility] [address] [place] [address]DrHernandez Tucker Albumin/Globulin [Mass ratio] 1.1 {ratio} Normal [facility] Comment on above: Performed By: #### C MP ####[facility] [address] [place] [address]DrHernandez Tucker ALP [Catalytic activity/Vol] 52 U/L Normal 46-116 [facility] Comment on above: Performed By: #### C MP ####[facility] [address] [place] [address]DrHernandez Tucker ALT [Catalytic activity/Vol] 31 U/L Normal 14-59 [facility] Comment on above: Performed By: #### C MP ####[facility] [address] [place] [address]DrHernandez Tucker Anion gap [Moles/Vol] 9.6 mmol/L Normal [facility] Comment on above: Performed By: #### C MP ####[facility] [address] [place] [address]DrHernandez Tucker AST [Catalytic activity/Vol] 15 U/L Normal 15-37 [facility] Comment on above: Performed By: #### C MP ####[facility] [address] [place] [address]Dr. Douglas Tucker Bilirubin [Mass/Vol] 0.3 mg/dL Normal 0.2-1.0 [facility] Comment on above: Performed By: #### C MP ####[facility] [address] [place], [place] [address]Dr. Douglas Tucker Calcium [Mass/Vol] 8.6 mg/dL Normal 8.5-10.1 [facility] Comment on above: Performed By: #### C MP ####[facility] [address] [place], [place] [address]Dr. Douglas Tucker Chloride [Moles/Vol] 107 mmol/L Normal 98-107 [facility] Comment on above: Performed By: #### C MP ####[facility] [address] [place], [place] [address]Dr. Douglas Tucker CO2 [Moles/Vol] 27.4 mmol/L Normal 21.0-32.0 [facility] Comment on above: Performed By: #### C MP ####[facility] [address] [place], [place] [address]Dr. Douglas Tucker Creatinine [Mass/Vol] 0.90 mg/dL Normal 0.55-1.02 [facility] Comment on above: Performed By: #### C MP ####[facility] [address] [place], [place] [address]Dr. Douglas Garrett EGFR-AF CENTRAL AFRICAN >60 Normal >=60 [facility] Comment on above: Performed By: #### C MP ####[facility] [address] [place], [place] [address]Dr. Douglas Tucker EGFR-NON AF CENTRAL AFRICAN >60 Normal >=60 [facility] Comment on above: Performed By: #### C MP ####[facility] [address] [place], [place] [address]Dr. Umuana Tucker Globulin (S) [Mass/Vol] 3.4 g/dL Normal [facility] Comment on above: Performed By: #### C MP ####[facility] [address] [place] [id number]. Umuana Tucker Glucose [Mass/Vol] 90 mg/dL Normal 74-106 [facility] Comment on above: Performed By: #### C MP ####[facility] [address] [place] [id number]. Douglas Tucker Potassium [Moles/Vol] 4.0 mmol/L Normal 3.5-5.1 [facility] Comment on above: Performed By: #### C MP ####[facility] [address] [place] [address]Dr. Douglas Tucker Protein [Mass/Vol] 7.3 g/dL Normal 6.4-8.2 [facility] Comment on above: Performed By: #### C MP ####[facility] [address] [place] [address]Dr. Douglas Tucker Sodium [Moles/Vol] 140 mmol/L Normal 136-145 [facility] Comment on above: Performed By: #### C MP ####[facility] [address] [place] [id number]. Douglas Tucker Urea nitrogen [Mass/Vol] 10.0 mg/dL Normal 7.0-18.0 [facility] Comment on above: Performed By: #### C MP ####[facility] [address] [place] [address]Dr. Douglas Tucker Urea nitrogen/Creatinine [Mass ratio] 11.1 mg/mg Normal [facility] Comment on above: Performed By: #### C MP ####[facility] [address] [place] [id number]. Douglas Tucker URINE MICROSCOPIC ONLYon BACTERIA MODERATE Abnormal NONE SEEN [facility] Comment on above: Performed By: #### U MICRO, ERUR #### [facility] [address] [place], [place] [address] Dr. Douglas Tucker Bacteria identified Cx Nom (U) INDICATED Normal [facility] Comment on above: Performed By: #### U MICRO, ERUR #### [facility] [address] [place] [address] Dr. Douglas Tucker CAST NONE SEEN Normal NONE SEEN [facility] Comment on above: Performed By: #### U MICRO, ERUR #### [facility] [address] [place] [address] Dr. Douglas Tucker Crystals LM Nom (Urine sed) NONE SEEN Normal NONE SEEN [facility] Comment on above: Performed By: #### U MICRO, ERUR #### [facility] [address] [place] [address] Dr. Douglas Tucker Epithelial cells LM Ql (Urine sed) FEW Abnormal NONE SEEN /RARE [facility] Comment on above: Performed By: #### U MICRO, ERUR #### [facility] [address] [place] [address] Dr. Douglas Tucker MUCOUS NONE SEEN Normal NONE SEEN [facility] Comment on above: Performed By: #### U MICRO, ERUR #### [facility] [address] [place] [address] Dr. Douglas Tucker RBC 0-2 Normal 0-2 [facility] Comment on above: Performed By: #### U MICRO, ERUR #### [facility] [address] [place] [address] Dr. Douglas Tucker WBC 2-5 Abnormal NONE SEEN [facility] Comment on above: Performed By: #### U MICRO, ERUR #### [facility] [address] [place] [address] Dr. Douglas Tucker US KIDNEYSon 01-28-2022 US KIDNEYS EXAMINATION: [facility] HISTORY: Pain ; right flank pain for [...] and urinary bladder. Electronically authenticated by: RICHELLE BUSH Date: 2022-01-28 13:45 Normal [facility] CBC AUTO DIFFon 10-29-2021 BASO # 0.1 103/ul Normal 0.0-0.1 [facility] Comment on above: Performed By: #### C BC ####[facility] [address] [place] [address]Dr. Douglas Tucker Basophils/100 WBC (Bld) 0.8 % Normal 0.2-2.0 [facility] [facility] Comment on above: Performed By: #### C BC ####[facility] Dybkmjkqcs[address] [place], [place] [address]Dr. Douglas Tucker EO # 0.2 103/ul Normal 0.0-0.7 [facility] Comment on above: Performed By: #### C BC ####[facility] Npayawij[address] [place], [place] [address]Dr. Douglas Tucker Eosinophils/100 WBC (Bld) 3.0 % Normal 0.9-7.0 [facility] Comment on above: Performed By: #### C BC ####[facility] Andffvarmm[address] [place], [place] [address]Dr. Douglas Tucker Erythrocyte distribution width (RBC) [Ratio] 12.2 % Normal 11.0-15.0 [facility] Comment on above: Performed By: #### C BC ####[facility] Daeoclztio[address] [place], [place] [address]Dr. Douglas Tucker Hematocrit (Bld) [Volume fraction] 39.9 % Normal 36.0-48.0 [facility] Comment on above: Performed By: #### C BC ####[facility] Ysvchoafss[address] [place], [place] [address]Dr. Douglas Tucker Hemoglobin (Bld) [Mass/Vol] 13.5 g/dL Normal 12.0-16.0 [facility] Comment on above: Performed By: #### C BC ####[facility] [address]wlddtwdmh[address] [place] [id number]. Douglas Tucker IG # 0.01 10e3/ul Normal 0.00-0.03 [facility] Comment on above: Performed By: #### C BC ####[facility] Natqakodgx40[address] [place] [address]Dr. Douglas Tucker IG % 0.2 % Normal 0.0-0.5 [facility] Comment on above: Performed By: #### C BC ####[facility] Gumvvnmioo79[address] [place] [address]Dr. Douglas Garrett LYMPH # 3.0 103/ul Normal 1.2-3.8 [facility] Comment on above: Performed By: #### C BC ####[facility] Kuijqlbvpm75[address] [place] [address]Dr. Douglas Tucker Lymphocytes/100 WBC (Bld) 44.6 % Normal 20.5-60.0 [facility] Comment on above: Performed By: #### C BC ####[facility] Yraonryoyn1876 [place] [address]Dr. Umuana Tucker MANUAL DIFF REQ NO Normal [facility] Comment on above: Performed By: #### C BC ####[facility] Rsmrheukcp4978 [place] [address]Dr. Douglas Tucker MCH (RBC) [Entitic mass] 32.1 pg Normal 26.7-34.0 [facility] Comment on above: Performed By: #### C BC ####[facility] Bfxlzpppsj3184 [place] [address]Dr. Douglas Tucker MCHC (RBC) [Mass/Vol] 33.8 g/dL Normal 29.9-35.2 [facility] Comment on above: Performed By: #### C BC ####[facility] Iqvpzaucmd[address]65 [place] [address]Dr. Douglas Garrett MCV (RBC) [Entitic vol] 95.0 fL Normal 81.0-99.0 [facility] Comment on above: Performed By: #### C BC ####[facility] Gdjehjlaif87[address] [place] [id number]. Douglas Tucker MONO # 0.5 103/ul Normal 0.3-0.8 [facility] Comment on above: Performed By: #### C BC ####[facility] Iposzfreui2423 [place] [id number]. Douglas Tucker Monocytes/100 WBC (Bld) 7.8 % Normal 1.7-12.0 [facility] Comment on above: Performed By: #### C BC ####[facility] Ciqbounjya[address] [place] [address]Dr. Douglas Tucker NEUT # 2.9 103/ul Normal 1.4-6.5 [facility] Comment on above: Performed By: #### C BC ####[facility] Habysobqpr[address] [place] [address]Dr. Douglas Tucker Neutrophils/100 WBC (Bld) 43.6 % Normal 43.0-75.0 [facility] Comment on above: Performed By: #### C BC ####[facility] Wdxtlxjupk4814 [place] [phone]. Douglas Tucker Platelet mean volume (Bld) [Entitic vol] 11.1 fL Normal 9.5-13.5 [facility] Comment on above: Performed By: #### C BC ####[facility] Gcelanvoqv3229 [place] [phone]. Douglas Tucker PLT 188 103/ul Normal 150-450 [facility] Comment on above: Performed By: #### C BC ####[facility] Tumpqxrhxd5[address] [place] [address]Dr. Douglas Tucker RBC 4.20 106/ul Normal 4.20-5.40 [facility] Comment on above: Performed By: #### C BC ####[facility] Bmllkmtcms5066 [place] [phone]. Douglas Tucker WBC 6.6 103/ul Normal 4.0-11.0 [facility] Comment on above: Performed By: #### C BC ####[facility] D[address]gdbuqkc[address] [place], [place] [address]Dr. Douglas Tucker MAGNESIUMon 10-29-2021 Magnesium [Mass/Vol] 2.1 mg/dL Normal 1.8-2.4 [facility] Comment on above: Performed By: #### Alyse Alejandro, CMP ####[facility] Rycyncfpwq7[address] [place], [place] [address]Dr. Douglas Tucker PROF 14(COMP METB)on 022 Albumin [Mass/Vol] 3.6 g/dL Normal 3.4-5.0 [facility] Comment on above: Performed By: #### Alyse Alejandro, CMP ####[facility] Darrlhrrkm[address] [place], [place] [address]Dr. Douglas Tucker Albumin/Globulin [Mass ratio] 1.2 {ratio} Normal [facility] Comment on above: Performed By: #### Alyse Alejandro, CMP ####[facility] Ekhfpfckmv[address] [place], [place] [address]Dr. Douglas Tucker ALP [Catalytic activity/Vol] 61 U/L Normal 46-116 [facility] Comment on above: Performed By: #### Alyse Alejandro, CMP ####[facility] Lflvpqoprm[address] [place], [place] [address]Dr. Douglas Tucker ALT [Catalytic activity/Vol] 25 U/L Normal 14-59 [facility] Comment on above: Performed By: #### Alyse Alejandro, CMP ####[facility] Kahtkmcnbc[address] [place], [place] [address]Dr. Douglas Tucker Anion gap [Moles/Vol] 12.4 mmol/L Normal [facility] Comment on above: Performed By: #### Alyse Alejandro, CMP ####[facility] Oeeuvrrkpp[address] [place], [place] [address]Dr. Douglas Tucker AST [Catalytic activity/Vol] 23 U/L Normal 15-37 [facility] Comment on above: Performed By: #### Alyse Alejandro, CMP ####[facility] Wddqezbspe64[address] [place], [place] [address]Dr. Douglas Tucker Bilirubin [Mass/Vol] 0.3 mg/dL Normal 0.2-1.0 [facility] Comment on above: Performed By: #### Alyse Alejandro, CMP ####[facility] Mvdqarwuft2584 [place] [address]Dr. Douglas Tucker Calcium [Mass/Vol] 8.5 mg/dL Normal 8.5-10.1 [facility] Comment on above: Performed By: #### M G, CMP ####[facility] Fitgagmeqi3943 [place] [address]Dr. Douglas Tucker Chloride [Moles/Vol] 106 mmol/L Normal 98-107 [facility] Comment on above: Performed By: #### M G, CMP ####[facility] Lxvsjolrky1289 [place] [address]Dr. Douglas Tucker CO2 [Moles/Vol] 22.8 mmol/L Normal 21.0-32.0 [facility] Comment on above: Performed By: #### Alyse Alejandro, CMP ####[facility] Udcxpxeoxv[address] [place], [place] [address]Dr. Douglas Tucker Creatinine [Mass/Vol] 0.76 mg/dL Normal 0.55-1.02 [facility] Comment on above: Performed By: #### Alyse Alejandro, CMP ####[facility] Ehmmhvspit45[address] [place], [place] [address]Dr. Douglas Tucker EGFR-AF CENTRAL AFRICAN >60 Normal >=60 [facility] Comment on above: Performed By: #### Alyse Alejandro, CMP ####[facility] Frwvnualyj[address] [place], [place] [address]Dr. Douglas Tucker EGFR-NON AF CENTRAL AFRICAN >60 Normal >=60 [facility] Comment on above: Performed By: #### M G, CMP ####[facility] Ewsotogcmc07[address] [place], [place] [address]Dr. Douglas Tucker Globulin (S) [Mass/Vol] 3.0 g/dL Normal [facility] Comment on above: Performed By: #### M Javon, CMP ####[facility] Jrrupsjder17[address] [place], [place] [address]Dr. Douglas Tucker Glucose [Mass/Vol] 110 mg/dL Critically high 74-106 [facility] Comment on above: Performed By: #### Alyse Alejandro, CMP ####[facility] Lutnptlkst23[address] [place] [phone]. Douglas Tucker Potassium [Moles/Vol] 4.2 mmol/L Normal 3.5-5.1 [facility] Comment on above: Performed By: #### M G, CMP ####[facility] Dfhqgzsowt9015 [place] [phone]. Douglas Tucker Protein [Mass/Vol] 6.6 g/dL Normal 6.4-8.2 [facility] Comment on above: Performed By: #### M G, CMP ####[facility] Ggykblqrrv2866 [place] [phone]. Douglas Tucker Sodium [Moles/Vol] 137 mmol/L Normal 136-145 [facility] Comment on above: Performed By: #### M G, CMP ####[facility] [address] [place], [place] [address]Dr. Douglas Tucker Urea nitrogen [Mass/Vol] 12.0 mg/dL Normal 7.0-18.0 [facility] Comment on above: Performed By: #### M G, CMP ####[facility] Paypcnwriq[address] [place], [place] [address]Dr. Douglas Tucker Urea nitrogen/Creatinine [Mass ratio] 15.8 mg/mg Normal [facility] Comment on above: Performed By: #### M G, CMP ####[facility] C[address]pts[address] [place], [place] [address]Dr. Douglas Tucker [facility] 03-07-2021 [facility] HNO ID: [id number] Author: RT Pati(R) Service: Radiology Author Type: Technologist Type: Allied [...] RT Pati(R) March 07, 2021 5:32 PM [facility] CNDSon 03-07-2021 [facility] HNO ID: [id number] Author: Rosalie Haile MD Service: ? Author [...] Commonly known as: ZANAFLEX Rosalie Haile MD Normal [facility] HISTORY PHYSICALon HISTORY PHYSICAL HNO ID: [id number] Author: Rosalie Haile MD Service: ? Author Type: Physician Type: HANDP Filed: 03/11/2021 7:31 PM Note Text: [facility] : 1990 AGE: 31 SEX: F CSN: [id number] [facility]: [facility] LOCATION: [facility] ATTENDING PHYSICIAN: Rosalie Haile M.D. ? ? DATE OF SERVICE: 03/06/2021 ? ? SUBJECTIVE: Patient with a history of diabetes and obesity. Admitted to the hospital with seizure. ?This is a 31 year old female with a hx of seizures, diabetes, anxiety, and conversion disorder, who reportedly had a seizure at the airport [facility]. She and her boyfriend had just arrived [...] H Adonis Mahoney MD 5 mL at 03/06/212130 - dextrose 40 % 15 g 15 [...] 40.1 WBC (k/uL) Date Value 03/06/2021 6.79 [facility] consultants notes reviewed Most recent images [...] goiter No carotid bruits. Rosalie Haile MD [facility] MRI BRAIN WO IVCONon 021 MRI [...] Routine noncontrast MRI protocol including diffusion images. Drhj-jw-fbvoyl MRV brain with post-processing performed at the [...] intravenous contrast. Patent major dural venous sinuses. Cord Maker: PSCVi Transcribe Date/Time: Mar 07 2021 5:46P Dictated by : HOLLAND MUELLER MD This examination was interpreted and the report reviewed and electronically signed by: HOLLAND MUELLER MD on Mar 07 2021 5:51PM EST [id number] Normal [facility] MRV BRAIN WO IVCONon 021 MRV BRAIN WO IVCON * * *Final Report* * * DATE OF EXAM: Mar 07 2021 5:42PM [facility] 0335 - MRV BRAIN WO IVCON / PROCEDURE REASON: Dural venous sinus thrombosis suspected * * * * Physician Interpretation * * * * EXAMINATION: MRI BRAIN WO IVCON, MRV BRAIN WO IVCON CLINICAL HISTORY: Clinical concern for dural venous sinus thrombosis. Headache. TECHNIQUE: Routine noncontrast MRI protocol including diffusion images. Mlvv-re-qgyygv MRV brain with post-processing performed at the [...] intravenous contrast. Patent major dural venous sinuses. Cord Maker: PSCB Transcribe Date/Time: Mar 07 2021 5:46P Dictated by : HOLLAND MUELLER MD This examination was interpreted and the report reviewed and electronically signed by: HOLLAND MUELLER MD on Mar 07 2021 5:51PM EST [id number] Normal [facility] NURSING PROGon 03-07-2021 NURSING PROG HNO ID: [id number] Author: Toya Pompa RN Service: ? Author Type: Registered Nurse Type: Nursing Progress Note Filed: 03/07/2021 11:35 PM Note Text: Nursing Progress Note Patient Name: uSlly Enriquez Patient Location: Pt discharged, transferred via wheelchair to exit where was picking her up. IV/tele removed. All belongings accounted for. This note was completed by: Toya Pompa [facility] NURSING PROG HNO ID: [id number] Author: Cordelia Faye, RN Service: Nursing Author Type: Registered Nurse Type: Nursing Progress Note Filed: 03/07/2021 5:15 PM Note Text: Nursing Progress Note Patient Name: Sully Enriquez Patient Location: Daily Note: 0830 Pt AANDOx3.Follows commands. No seizure activity. Awaiting MRI of the brain. C/o of 710 pressure generalized ESPINOZA. Medicated w/ ESPINOZA cocktail. Denies CP, SOB, dizziness, blurred or double vision. LS clear. RA. SR on telemetry. Abdomen soft and non tender. Pt reports having several sot BMs during the day today. I soft small brown BM witnessed. Denies abdominal pain. Denies N/V. Non pitting edema BLE. Call light within reach. wctm 1630 pt asks to be d/c today and have MRI as OP per neurology recs. Dr Haile paged. 1705 pt to MRI. Medicated with 25 mg of Atarax prior to MRI. [address] Haile to wait for MRI results. If neurology signs off after the MRI is resulted will reach dr Haile for d/c orders. wctm This note was completed by: Cordelia Faye [facility] NURSING PROG HNO ID: [id number] Author: Breanne Reis RN Service: ? Author [...] This note was completed by: Smiley Raymundo [facility] NURSING PROG HNO ID: [id number] Author: Yoselin Cui RN Service: Nursing Author Type: Registered Nurse Type: Nursing Progress Note Filed: 03/06/2021 10:38 PM Note Text: Nursing Progress Note Patient Name: Sully Enriquez Patient Location: / Transfer Note: Patient transferred into room/unit PKT-12 in stable condition. Actions taken: Alert and oriented x 3. Patient was an ED hold. Admission database completed. Call light in reach. Smiley [facility] will do physical and skin assessments and complete NPR and skin flow sheets. This note was completed by: Yoselin Padilla [facility] ALLIED HEALTHon 03-06-2021 [facility] HNO ID: [id number] Author: RT Sanam(Jd) Service: ? Author Type: [...] Sanam(R) March 06, 2021 2:45 AM Normal [facility] CBC and Differentialon 03-06 Abs Baso 0.04 k/uL Normal <0.11 [facility] Comment on above: Performed By: #### C K, ALCO, CBCDIF, CMP, MG1 ####[place] [id number] [place] [phone] Abs [place] 0.55 k/uL Normal <0.87 [facility] Comment on above: Performed By: #### C K, ALCO, CBCDIF, CMP, MG1 ####[place] [id number] [place], [place] [phone] Abs Neut 3.17 k/uL Normal 1.45-7.50 [facility] Comment on above: Performed By: #### C K, ALCO, CBCDIF, CMP, MG1 ####[address] [phone] Absolute nRBC <0.01 Normal <0.01 [facility] Comment on above: Performed By: #### C K, ALCO, CBCDIF, CMP, MG1 ####[place] [address] Basophils/100 WBC (Bld) 0.6 % Normal [facility] Comment on above: Performed By: #### C K, ALCO, CBCDIF, CMP, MG1 ####[place] [address] DTYPE Auto Diff Normal [facility] Comment on above: Performed By: #### C K, ALCO, CBCDIF, CMP, MG1 ####[place] [address] Eosinophils (Bld) [#/Vol] 0.17 10*3/uL Normal <0.46 [facility] Comment on above: Performed By: #### C K, ALCO, CBCDIF, CMP, MG1 ####[place] [address] Eosinophils/100 WBC (Bld) 2.5 % Normal [facility] Comment on above: Performed By: #### C K, ALCO, CBCDIF, CMP, MG1 ####[place] [address] Erythrocyte distribution width (RBC) [Ratio] 12.0 % Normal 11.5-15.0 [facility] Comment on above: Performed By: #### C K, ALCO, CBCDIF, CMP, MG1 ####[place] [address] Hematocrit (Bld) [Volume fraction] 40.1 % Normal 36.0-46.0 [facility] Comment on above: Performed By: #### C K, ALCO, CBCDIF, CMP, MG1 ####[place] [address] Hemoglobin (Bld) [Mass/Vol] 13.2 g/dL Normal 11.5-15.5 [facility] Comment on above: Performed By: #### C K, ALCO, CBCDIF, CMP, MG1 ####[place] [phone] Lymphocytes (Bld) [#/Vol] 2.85 10*3/uL Normal 1.00-4.00 [facility] Comment on above: Performed By: #### C K, ALCO, CBCDIF, CMP, MG1 ####[place] [phone] Lymphocytes/100 WBC (Bld) 42.0 % Normal [facility] Comment on above: Performed By: #### C K, ALCO, CBCDIF, CMP, MG1 ####[place] [phone] MCH 31.8 pG Normal 26.0-34.0 [facility] Comment on above: Performed By: #### C K, ALCO, CBCDIF, CMP, MG1 ####[place] [phone] MCHC (RBC) [Mass/Vol] 32.9 g/dL Normal 30.5-36.0 [facility] Comment on above: Performed By: #### C K, ALCO, CBCDIF, CMP, MG1 ####[place] [phone] MCV (RBC) [Entitic vol] 96.6 fL Normal 80.0-100.0 [facility] Comment on above: Performed By: #### C K, ALCO, CBCDIF, CMP, MG1 ####[place] [phone] Monocytes/100 WBC (Bld) 8.1 % Normal [facility] Comment on above: Performed By: #### C K, ALCO, CBCDIF, CMP, MG1 ####[place] [phone] Neutrophils/100 WBC (Bld) 46.8 % Normal [facility] Comment on above: Performed By: #### C K, ALCO, CBCDIF, CMP, MG1 ####[place] [phone] NRBCs 0.0 /100 WBC Normal 0 [facility] Comment on above: Performed By: #### C K, ALCO, CBCDIF, CMP, MG1 ####[place] [phone] Platelet mean volume (Bld) [Entitic vol] 10.7 fL Normal 9.0-12.7 [facility] Comment on above: Performed By: #### C K, ALCO, CBCDIF, CMP, MG1 ####[place] [phone] Platelets (Bld) [#/Vol] 183 10*3/uL Normal 150-400 [facility] Comment on above: Performed By: #### C K, ALCO, CBCDIF, CMP, MG1 ####[place] [phone] RBC (Bld) [#/Vol] 4.15 10*6/uL Normal 3.90-5.20 [facility] Comment on above: Performed By: #### C K, ALCO, CBCDIF, CMP, MG1 ####[place] [phone] WBC (Bld) [#/Vol] 6.79 10*3/uL Normal 3.70-11.00 [facility] Comment on above: Performed By: #### C K, ALCO, CBCDIF, CMP, MG1 ####[place] [phone] CKon 03-06-2021 CK [Catalytic activity/Vol] 103 U/L Normal 30-220 [facility] Comment on above: Performed By: #### C K, ALCO, CBCDIF, CMP, MG1 ####[place] [phone] CONSULTon 03-06-2021 CONSULT HNO ID: [id number] Author: Saravanan Yancey MD Service: Neurology General Author Type: Resident Type: Consults Filed: 03/06/2021 5:10 PM Note Text: ----- Attestation signed by Tim Sanches MD at 03/06/2021 9:16 PM [facility] STAFF PHYSICIAN NOTE OF PERSONAL INVOLVEMENT [...] her had just deplaned coming back from [employer] x 3 days and she had [...] [place] who is a family doctor in [facility], and she has noted hx of non-epileptic [...] Facility-Administered [facility]ica (more content not included)... Normal [facility] CT BRAIN WO IVCONon 03-06-[address] BRAIN WO IVCON * * *Final [...] Other: No depressed skull fracture is seen. Glass Mould Cleaner (topogram) images: Non-diagnostic. IMPRESSION: No CT evidence of an acute intracranial abnormality. Other: details above. Cord Maker: MAVERICK Transcribe Date/Time: Mar 06 2021 3:13A Dictated by : JENN MORENO MD This examination was interpreted and the report reviewed and electronically signed by: JENN MORENO MD on Mar 06 2021 3:15AM EST [id number] Normal [facility] Comp Metabolic Panelon 03-06 Albumin [Mass/Vol] 4.6 g/dL Normal 3.5-5.0 [facility] Comment on above: Performed By: #### C K, ALCO, CBCDIF, CMP, MG1 ####[place] [phone] ALP [Catalytic activity/Vol] 67 U/L Normal 34-123 [facility] Comment on above: Performed By: #### C K, ALCO, CBCDIF, CMP, MG1 ####[place] [phone] ALT [Catalytic activity/Vol] 15 U/L Normal 0-45 [facility] Comment on above: Performed By: #### C K, ALCO, CBCDIF, CMP, MG1 ####[place] [phone] Anion gap [Moles/Vol] 10 mmol/L Normal 9-18 [facility] Comment on above: Performed By: #### C K, ALCO, CBCDIF, CMP, MG1 ####[place] [phone] AST [Catalytic activity/Vol] 15 U/L Normal 7-40 [facility] Comment on above: Performed By: #### C K, ALCO, CBCDIF, CMP, MG1 ####[place] [phone] Bilirubin [Mass/Vol] 0.2 mg/dL Normal 0.2-1.3 [facility] Comment on above: Performed By: #### C K, ALCO, CBCDIF, CMP, MG1 ####[place] [phone] Calcium [Mass/Vol] 9.3 mg/dL Normal 8.5-10.5 [facility] Comment on above: Performed By: #### C K, ALCO, CBCDIF, CMP, MG1 ####[place] [phone] Chloride [Moles/Vol] 106 mmol/L Normal 98-110 [facility] Comment on above: Performed By: #### C K, ALCO, CBCDIF, CMP, MG1 ####[place] [phone] CO2 [Moles/Vol] 25 mmol/L Normal 23-32 [facility] Comment on above: Performed By: #### C K, ALCO, CBCDIF, CMP, MG1 ####[place] [phone] Creatinine [Mass/Vol] 0.99 mg/dL Normal 0.70-1.40 [facility] Comment on above: Performed By: #### C K, ALCO, CBCDIF, CMP, MG1 ####[place] [phone] eGFR- Amer. >60 Normal >60 [facility] Comment on above: Performed By: #### C K, ALCO, CBCDIF, CMP, MG1 ####[place] [phone] eGFR-All Other Races >60 Normal >60 [facility] Comment on above: Result Comment: eGFR (Estimated [...] #### C K, ALCO, CBCDIF, CMP, MG1 ####[place] [phone] Glucose [Mass/Vol] 103 mg/dL High 65-100 [facility] Comment on above: Performed By: #### C K, ALCO, CBCDIF, CMP, MG1 ####[place] [phone] Potassium [Moles/Vol] 3.9 mmol/L Normal 3.5-5.0 [facility] Comment on above: Performed By: #### C K, ALCO, CBCDIF, CMP, MG1 ####[place] [phone] Protein [Mass/Vol] 7.1 g/dL Normal 6.0-8.4 [facility] Comment on above: Performed By: #### C K, ALCO, CBCDIF, CMP, MG1 ####[place] [phone] Sodium [Moles/Vol] 141 mmol/L Normal 132-148 [facility] Comment on above: Performed By: #### C K, ALCO, CBCDIF, CMP, MG1 ####[place] [phone] Urea nitrogen [Mass/Vol] 12 mg/dL Normal 8-25 [facility] Comment on above: Performed By: #### C K, ALCO, CBCDIF, CMP, MG1 ####[place] [phone] ED NOTEon 03-06-2021 ED NOTE HNO ID: [id number] Author: Isabell Olivares RN Service: ? Author Type: Registered Nurse Type: ED Notes Filed: 03/06/2021 9:38 PM Note Text: Report to JUS Reis. [facility] ED NOTE HNO ID: [id number] Author: Isabell Olivares RN Service: ? Author Type: Registered Nurse Type: ED Notes Filed: 03/06/2021 7:16 PM Note Text: Pt up to bedside commode in room with steady gait, pt back to bed, siderails up x 2. [facility] ED NOTE HNO ID: [id number] Author: Isabell Olivares RN Service: ? Author Type: Registered Nurse Type: ED Notes Filed: 03/06/2021 6:32 PM Note Text: Meal tray arrives at the bedside. [facility] ED NOTE HNO ID: [id number] Author: Isabell Olivares RN Service: ? Author Type: Registered Nurse Type: ED Notes Filed: 03/06/2021 6:02 PM Note Text: Pt encouraged to call for dinner tray. Pt reports her headache has improved. [facility] ED NOTE HNO ID: [id number] Author: Isabell Olivares RN Service: ? Author Type: Registered Nurse Type: ED Notes Filed: 03/06/2021 5:18 PM Note Text: Pt states much improvement to her headache, resting in the room with her family, lights dimmed for comfort. [facility] ED NOTE HNO ID: [id number] Author: Isabell Olivares RN Service: ? Author Type: Registered Nurse Type: ED Notes Filed: 03/06/2021 2:48 PM Note Text: Pt reports no improvement in her headache, pt resting with lights off and warm blankets with family at bedside. No new orders at this time. Neurology paged. [facility] ED NOTE HNO ID: [id number] Author: Isabell Olivares RN Service: ? Author Type: Registered Nurse Type: ED Notes Filed: 03/06/2021 2:25 PM Note Text: MRI form faxed to MRI. Pt states she has claustrophobia with MRI, Neurology paged. [facility] ED NOTE HNO ID: [id number] Author: Isabell Olivares RN Service: ? Author Type: Registered Nurse Type: ED Notes Filed: 03/06/2021 2:04 PM Note Text: MRI Screening form given to the patient. [facility] ED NOTE HNO ID: [id number] Author: Isabell Olivares RN Service: ? Author Type: Registered Nurse Type: ED Notes Filed: 03/06/2021 1:56 PM Note Text: Pt assisted onto and off the bedpan. [facility] ED NOTE HNO ID: [id number] Author: Isabell Olivares RN Service: ? Author Type: Registered Nurse Type: ED Notes Filed: 03/06/2021 1:56 PM Note Text: Pt accucheck 100, meal tray at bedside. [facility] ED NOTE HNO ID: [id number] Author: Isabell Olivares RN Service: ? Author Type: Registered Nurse Type: ED Notes Filed: 03/06/2021 1:39 PM Note Text: Neurology at bedside with the patient. [facility] ED NOTE HNO ID: [id number] Author: Isabell Olivares RN Service: ? Author Type: Registered Nurse Type: ED Notes Filed: 03/06/2021 1:26 PM Note Text: Verbal order from Dr. Haile for 25mg PO benadryl [facility] ED NOTE HNO ID: [id number] Author: Isabell Olivares RN Service: ? Author Type: Registered Nurse Type: ED Notes Filed: 03/06/2021 11:20 AM Note Text: Pt resting in bed with seizure pads in place, pt family member sleeping in the bed with the patient, pt family member asked to not be in the bed with the patient for patient safety. [facility] ED NOTE HNO ID: [id number] Author: Jade Forte RN Service: ? Author Type: Registered Nurse Type: ED Notes Filed: 03/06/2021 11:13 AM Note Text: Patient report given to JUS Whyte [facility] ED NOTE HNO ID: [id number] Author: Isabell Olivares RN Service: ? Author Type: Registered Nurse Type: ED Notes Filed: 03/06/2021 11:02 AM Note Text: Assumed care of the patient at this time, received report from JUS Hansen. Plan of Care: - maintain patient comfort, safety and privacy - monitor for changes in condition - bed locked, low position, siderails up - call light within reach [facility] ED NOTE HNO ID: [id number] Author: Jade Forte RN Service: ? Author Type: Registered Nurse Type: ED Notes Filed: 03/06/2021 11:05 AM Note Text: Patient reports continuing to have headache. Spouse also reports had another few second seizure. House paged. [facility] ED NOTE HNO ID: [id number] Author: Jade Forte RN Service: ? Author Type: Registered Nurse Type: ED Notes Filed: 03/06/2021 10:11 AM Note Text: Called lab, breakfast tray ordered [facility] ED NOTE HNO ID: [id number] Author: Jade Forte RN Service: ? Author Type: Registered Nurse Type: ED Notes Filed: 03/06/2021 8:43 AM Note Text: Patient placed on bedpan. Patient and sheets soiled. Patient cleaned, linens changed [facility] ED NOTE HNO ID: [id number] Author: Jade Forte RN Service: ? Author Type: Registered Nurse Type: ED Notes Filed: 03/06/2021 8:31 AM Note Text: Answered patient call light. Patient requesting bedpan. Patient reports patient just had seizure . House paged and returned call. [facility] ED NOTE HNO ID: [id number] Author: Jade Forte RN Service: ? Author Type: Registered Nurse Type: ED Notes Filed: 03/06/2021 7:39 AM Note Text: Patient resting in bed. Declines breakfast at this time. Reports headache and nausea. House paged. [facility] ED NOTE HNO ID: [id number] Author: Jade Forte RN Service: ? Author Type: Registered Nurse Type: ED Notes Filed: 03/06/2021 7:07 AM Note Text: Patient report received from JUS Schuler [facility] ED PROV NOTEon 03-06-2021 ED PROV NOTE HNO ID: [id number] Author: Adeel Mauro MD Service: Hospital Medicine [...] (*) Negative (more content not included)... Normal [facility] Ethanolon 03-06-2021 Ethanol [Mass/Vol] mg/dL Normal <11 [facility] Comment on above: Performed By: #### C K, ALCO, CBCDIF, CMP, MG1 ####[place] [phone] Expedited [id number] 03-06-20 21 SARS-CoV-2 (COVID-19) RNA AZ+probe Ql (Unsp spec) UPPER RESPIRATORY TRACT SWAB Normal [facility] Comment on above: Performed By: #### E XCOVD #### [place] [phone] SARS-CoV-2 (COVID-19) RNA AZ+probe Ql (Unsp spec) Negative for COVID19 (SARS CoV2) by RT-PCR or equivalent method. Normal Negative for COVID19 (SARS CoV2) by RT-PCR or equivalent method. [facility] Comment on above: Result Comment: This test has been authorized by FDA under an Emergency Use Authorization (EUA). Performed By: #### E XCOVD #### [place] [phone] HCG Qual, Urineon 03-06-2021 Beta HCG ( test) Ql (U) Negative Normal Negative [facility] Comment on above: Performed By: #### U HCG ####[place] [phone] HISTORY PHYSICALon HISTORY PHYSICAL HNO ID: [id number] Author: Adonis Mahoney MD Service: General Internal Medicine Author Type: Physician Type: HANDP Filed: 03/06/2021 6:51 AM Note Text: HISTORY AND PHYSICAL EXAMINATION * SERVICE DATE: 03/06/2021 PRIMARY CARE PHYSICIAN: Roxie Strickland NP Subjective CHIEF COMPLAINT: Seizures HPI: This is a 31 year old female with a hx of seizures, diabetes, anxiety, and conversion disorder, who reportedly had a seizure at the airport [facility]. She and her boyfriend had just arrived [...] March 06, 2021 TIME: 6:08 AM Normal [facility] Magnesiumon 03-06-2021 Magnesium [Mass/Vol] 2.1 mg/dL Normal 1.7-2.6 [facility] Comment on above: Performed By: #### C K, ALCO, CBCDIF, CMP, MG1 ####[place] [phone] TSHon 03-06-2021 TSH Qn 3.170 m[IU]/L Normal 0.270-4.200 [facility] Comment on above: Result Comment: If [...] E, et al. 2017 Guidelines of the [place] [employer] for the Diagnosis and Management of Thyroid Disease during and the . Thyroid, 2017:27:3:315-389. Performed By: #### T SH ####[place] [phone] Toxicology Screen,Uron 03-06 Amphetamines, Urine Negative Normal Negative [facility] Comment on above: Result Comment: Cuto ff threshold at 1000 ng/mL. Performed By: #### U TOX2, UAWMIC #### [address] [address] Barbiturates, Urine Negative Normal Negative [facility] Comment on above: Result Comment: Cuto ff threshold at 200 ng/mL. Performed By: #### U TOX2, UAWMIC #### [place] [address] Benzodiazepines, Ur Negative Normal Negative [facility] Comment on above: Result Comment: Cuto ff threshold at 200 ng/mL. Performed By: #### U TOX2, UAWMIC #### [place] [address] Cannabinoids, Urine Negative Normal Negative [facility] Comment on above: Result Comment: Cuto ff threshold at 50 ng/mL. Performed By: #### U TOX2, UAWMIC #### [place] [address] Cocaine, Urine Negative Normal Negative [facility] Comment on above: Result Comment: Cuto ff threshold at 300 ng/mL. Performed By: #### U TOX2, UAWMIC #### [place] [address] Ethanol, Urine <11 Normal <11 [facility] Comment on above: Performed By: #### U TOX2, UAWMIC #### [place] [address] Opiates, Urine Negative Normal Negative [facility] Comment on above: Result Comment: Cuto ff threshold at 300 ng/mL. Performed By: #### U TOX2, UAWMIC #### [place] [address] Oxycodone, Urine Negative Normal Negative [facility] Comment on above: Result Comment: Cuto [...] on the same specimen through Client Services ([phone]) if contacted within 48 hours of initial testing. [1]Substance Abuse and Mental Health Services Administration (2012). Clinical Drug Testing in Primary Care Technical Assistance Publication Series 32. Department of Health and Human Services, [place], p.10. Performed By: #### U TOX2, UAWMIC #### [place] [address] Phencyclidine, Urine Negative Normal Negative [facility] Comment on above: Result Comment: Cuto ff threshold at 25 ng/mL. Performed By: #### U TOX2, UAWMIC #### [place] [address] Urinalysis with Microscopico n 03-06-2021 Bacteria Rare Critically abnormal Negative [facility] Comment on above: Performed By: #### U TOX2, UAWMIC #### [place] [address] Bilirubin, Urine Negative Normal Negative [facility] Comment on above: Performed By: #### U TOX2, UAWMIC #### [place] [address] Clarity (U) Clear Normal Clear [facility] Comment on above: Performed By: #### U TOX2, UAWMIC #### [place] [address] Color (U) Colorless Critically abnormal Yellow [facility] Comment on above: Performed By: #### U TOX2, UAWMIC #### [place] [address] Comments SEE COMMENT Normal [facility] Comment on above: Result Comment: Micr oscopic Examination Performed Performed By: #### U TOX2, UAWMIC #### [place] [address] Epithelial cells LM Ql (Urine sed) SEE COMMENT Critically abnormal Negative [facility] Comment on above: Result Comment: Rare Squamous Epithelial Cells Performed By: #### U TOX2, UAWMIC #### [place] [address] Glucose Ql (U) Negative Normal Negative [facility] Comment on above: Performed By: #### U TOX2, UAWMIC #### [place] [id number] Hemoglobin/Blood,Ur Negative Normal Negative [facility] Comment on above: Performed By: #### U TOX2, UAWMIC #### [address] Ketones Ql (U) Negative Normal Negative [facility] Comment on above: Performed By: #### U TOX2, UAWMIC #### [place] [address] Leukest Negative Normal Negative [facility] Comment on above: Performed By: #### U TOX2, UAWMIC #### [place] [id number] Nitrite Ql (U) Negative Normal Negative [facility] Comment on above: Performed By: #### U TOX2, UAWMIC #### [address] pH (U) 7.0 [pH] Normal 5.0-8.0 [facility] Comment on above: Performed By: #### U TOX2, UAWMIC #### [address] Protein, Urine Negative Normal Negative [facility] Comment on above: Performed By: #### U TOX2, UAWMIC #### [place] [address] RBC Rare Critically abnormal Negative [facility] Comment on above: Performed By: #### U TOX2, UAWMIC #### [place] [id number] Specific [place], Ur 1.007 Normal 1.005-1.030 [facility] Comment on above: Performed By: #### U TOX2, UAWMIC #### [facility] [address] [place] [address] Urobilinogen (U) [Mass/Vol] Negative Normal Negative [facility] Comment on above: Performed By: #### U TOX2, UAWMIC #### [facility] [address] [place] [address] WBC Rare Critically abnormal Negative [facility] Comment on above: Performed By: #### U TOX2, UAWMIC #### [facility] [address] [place] [address] Vital Signs Date Time Vital Sign Value Performing Clinician Facility 01-29-2023 10:15-0400 Body height 165.1 cm Mario Pee Other [facility] 01-29-2023 10:15-0400 Body mass index (BMI) [Ratio] 37.27 kg/m2 Mario Pee Other [facility] Other 01-29-2023 10:15-0400 Body temperature 96.9 [degF] Mario Pee Other [facility] Other 01-29-2023 10:15-0400 Body weight 101.61 kg Mario Pee Other [facility] Other 01-29-2023 10:15-0400 Diastolic blood pressure 70 mm[Hg] Mario Pee Other [facility] Other 01-29-2023 10:15-0400 Respiratory rate 20 /min Mario Pee Other [facility] Other 01-29-2023 10:15-0400 SaO2% (BldA) [Mass fraction] 99 % Mario Pee Other [facility] Other 01-29-2023 10:15-0400 Systolic blood pressure 110 mm[Hg] Mario Pee Other [facility] Other 12-12-2022 15:15-0400 Body height 165.1 cm Mario Pee Other [facility] Other 12-12-2022 15:15-0400 Body mass index (BMI) [Ratio] 37.77 kg/m2 Mario [facility] Other [facility] Other 12-12-2022 15:15-0400 Body weight 102.97 kg Mario Pee Other [facility] Other 12-12-2022 15:15-0400 Diastolic blood pressure 60 mm[Hg] Mario P[facility] Other [facility] Other 12-12-2022 15:15-0400 Respiratory rate 20 /min Mario P[facility] Other [facility] Other 12-12-2022 15:15-0400 Systolic blood pressure 102 mm[Hg] Mario P[facility] Other [facility] Other 11-23-2022 01:18-0400 Diastolic blood pressure 83 mm[Hg] Kaylinn Dokken [facility] 11-23-2022 01:18-0400 Heart rate 64 /min Kaylinn Dokken [facility] 11-23-2022 01:18-0400 Mean blood pressure 94 mm[Hg] Kaylinn Dokken [facility] 11-23-2022 01:18-0400 Respiratory rate 19 /min Kaylinn Dokken [facility] 11-23-2022 01:18-0400 SaO2% (BldA) [Mass fraction] 97 % Kaylinn Dokken [facility] 11-23-2022 01:18-0400 Systolic blood pressure 117 mm[Hg] Kaylinn Dokken [facility] 11-23-2022 01:14-0400 Diastolic blood pressure 85 mm[Hg] Kaylinn Dokken [facility] 11-23-2022 01:14-0400 Heart rate 65 /min Kaylinn Dokken [facility] 11-23-2022 01:14-0400 Mean blood pressure 98 mm[Hg] Kaylinn Dokken [facility] 11-23-2022 01:14-0400 Respiratory rate 18 /min Kaylinn Dokken [facility] 11-23-2022 01:14-0400 SaO2% (BldA) [Mass fraction] 98 % Kaylinn Dokken [facility] 11-23-2022 01:14-0400 Systolic blood pressure 124 mm[Hg] Kaylinn Dokken [facility] 11-23-2022 00:00-0400 Body temperature 98.24 [degF] Kaylinn Dokken [facility] 11-23-2022 00:00-0400 Diastolic blood pressure 63 mm[Hg] Kaylinn Dokken [facility] 11-23-2022 00:00-0400 Mean blood pressure 77 mm[Hg] Sonam Montoya [facility] 11-23-2022 00:00-0400 SaO2% (BldA) [Mass fraction] 99 % Sonam Montoya [facility] 11-23-2022 00:00-0400 Systolic blood pressure 105 mm[Hg] Sonam Montoya [facility] 11-22-2022 22:00-0400 Heart rate 63 /min Sonam Montoya [facility] 11-22-2022 20:59-0400 Body temperature 98.06 [degF] Sonam Montoya [facility] 11-22-2022 20:59-0400 Respiratory rate 19 /min Sonam Montoya [facility] 11-14-2022 13:15-0400 Body height 165.1 cm Mario P[facility] Other [facility] 11-14-2022 13:15-0400 Body mass index (BMI) [Ratio] 37.77 kg/m2 Mario [facility] Other [facility] Other 11-14-2022 13:15-0400 Body temperature 97.8 [degF] Mario Pee Other [facility] Other 11-14-2022 13:15-0400 Body weight 102.97 kg Mario Pee Other [facility] Other 11-14-2022 13:15-0400 Diastolic blood pressure 76 mm[Hg] Mario Pee Other [facility] Other 11-14-2022 13:15-0400 Respiratory rate 20 /min Mario Pee Other [facility] Other 11-14-2022 13:15-0400 SaO2% (BldA) [Mass fraction] 97 % Mario Pee Other [facility] Other 11-14-2022 13:15-0400 Systolic blood pressure 100 mm[Hg] Mario Pee Other [facility] Other 10-15-2022 14:45-0400 Body height 165.1 cm Mario Pee Other [facility] Other 10-15-2022 14:45-0400 Body mass index (BMI) [Ratio] 38.44 kg/m2 Mario Pee Other [facility] Other 10-15-2022 14:45-0400 Body temperature 96 [degF] Mario Pee Other [facility] Other 10-15-2022 14:45-0400 Body weight 104.78 kg Mario Pee Other [facility] Other 10-15-2022 14:45-0400 Diastolic blood pressure 78 mm[Hg] Mario Pee Other [facility] Other 10-15-2022 14:45-0400 Respiratory rate 20 /min Mario Pee Other [facility] Other 10-15-2022 14:45-0400 SaO2% (BldA) [Mass fraction] 97 % Mario Pee Other [facility] Other 10-15-2022 14:45-0400 Systolic blood pressure 122 mm[Hg] Mario Pee Other [facility] Other 09-17-2022 13:00-0400 Body height 165.1 cm Mario Pee Other [facility] Other 09-17-2022 13:00-0400 Body mass index (BMI) [Ratio] 39.27 kg/m2 Mario Pee Other [facility] Other 09-17-2022 13:00-0400 Body temperature 96.9 [degF] Mario Pee Other [facility] Other 09-17-2022 13:00-0400 Body weight 107.05 kg Mario Pee Other [facility] Other 09-17-2022 13:00-0400 Diastolic blood pressure 78 mm[Hg] Mario Pee Other [facility] Other 09-17-2022 13:00-0400 Respiratory rate 20 /min Mario Pee Other [facility] Other 09-17-2022 13:00-0400 SaO2% (BldA) [Mass fraction] 96 % Mario P[facility] Other [facility] Other 09-17-2022 13:00-0400 Systolic blood pressure 124 mm[Hg] Mario [facility] Other [facility] Other 05-02-2022 20:23-0500 Body temperature 98 [degF] DO Mario Pee Work Phone: [facility] 05-02-2022 20:23-0500 Diastolic blood pressure 78 mm[Hg] DO Mario Pee Work Phone: [facility] 05-02-2022 20:23-0500 Heart rate 104 /min DO Mario Pee Work Phone: [facility] 05-02-2022 20:23-0500 Respiratory rate 18 /min DO Mario Pee Work Phone: [facility] 05-02-2022 20:23-0500 SaO2% (BldA) [Mass fraction] 96 % DO Mario Pee Work Phone: [facility] 05-02-2022 20:23-0500 Systolic blood pressure 125 mm[Hg] DO Mario Pee Work Phone: [facility] 05-02-2022 16:20-0500 Inhaled oxygen flow rate 3 L/min DO Mario Pee Work Phone: [facility] 05-02-2022 06:52-0500 Body height 165.1 cm DO Mario Pee Work Phone: [facility] 05-02-2022 06:52-0500 Body mass index (BMI) [Ratio] 37.9 kg/m2 DO Mario Pee Work Phone: [facility] 05-02-2022 06:52-0500 Body weight 103.4 kg DO Mario Pee Work Phone: [facility] 04-24-2022 18:09-0500 Body height 165.1 cm DO Mario Pee Work Phone: [facility] 04-24-2022 18:09-0500 Body temperature 99.1 [degF] DO Mario Pee Work Phone: [facility] 04-24-2022 18:09-0500 Body weight 104.2 kg DO Mraio Pee Work Phone: [facility] 04-24-2022 18:09-0500 Diastolic blood pressure 88 mm[Hg] DO Mario Pee Work Phone: [facility] 04-24-2022 18:09-0500 Heart rate 99 /min DO Mario Pee Work Phone: [facility] 04-24-2022 18:09-0500 Respiratory rate 19 /min DO Mario Pee Work Phone: [facility] 04-24-2022 18:09-0500 SaO2% (BldA) [Mass fraction] 96 % DO Mario Pee Work Phone: [facility] 04-24-2022 18:09-0500 Systolic blood pressure 124 mm[Hg] DO Mario Pee Work Phone: [facility] 04-17-2022 15:00-0500 Body height 165.1 cm Mario Pee Other [facility] Other 04-17-2022 15:00-0500 Body mass index (BMI) [Ratio] 38.77 kg/m2 [facility] Other [facility] Other 04-17-2022 15:00-0500 Body temperature 97.2 [degF] Mario [facility] Other [facility] Other 04-17-2022 15:00-0500 Body weight 105.69 kg Mario Pee Other [facility] Other 04-17-2022 15:00-0500 Diastolic blood pressure 82 mm[Hg] Mario P[facility] Other [facility] Other 04-17-2022 15:00-0500 Respiratory rate 20 /min Mario P[facility] Other [facility] Other 04-17-2022 15:00-0500 SaO2% (BldA) [Mass fraction] 98 % [facility] Other [facility] Other 04-17-2022 15:00-0500 Systolic blood pressure 124 mm[Hg] Mario P[facility] Other [facility] Other 04-10-2022 08:44-0500 Body height 165.1 cm DO Mario Pee Work Phone: [facility] 04-10-2022 08:44-0500 Body temperature 98.3 [degF] DO Mario Pee Work Phone: [facility] 04-10-2022 08:44-0500 Body weight 105 kg DO Mario Pee Work Phone: [facility] 04-10-2022 08:44-0500 Diastolic blood pressure 82 mm[Hg] DO Mario Pee Work Phone: [facility] 04-10-2022 08:44-0500 Heart rate 80 /min DO Mario Pee Work Phone: [facility] 04-10-2022 08:44-0500 Respiratory rate 16 /min DO Mario Pee Work Phone: [facility] 04-10-2022 08:44-0500 SaO2% (BldA) [Mass fraction] 98 % DO Mario Pee Work Phone: [facility] 04-10-2022 08:44-0500 Systolic blood pressure 125 mm[Hg] DO Mario Pee Work Phone: [facility] 12-12-2021 14:45-0400 Body height 165.1 cm Mario [facility] Other [facility] Other 12-12-2021 14:45-0400 Body mass index (BMI) [Ratio] 37.27 kg/m2 Mario [facility] Other [facility] Other 12-12-2021 14:45-0400 Body temperature 96.9 [degF] Mario Pee Other [facility] Other 12-12-2021 14:45-0400 Body weight 101.61 kg Mario Pee Other [facility] Other 12-12-2021 14:45-0400 Diastolic blood pressure 80 mm[Hg] Mario P[facility] Other [facility] Other 12-12-2021 14:45-0400 Respiratory rate 20 /min Mario Pee Other [facility] Other 12-12-2021 14:45-0400 SaO2% (BldA) [Mass fraction] 98 % [facility] Other [facility] Other 12-12-2021 14:45-0400 Systolic blood pressure 124 mm[Hg] Mario [facility] Other [facility] Other 10-12-2021 09:30-0400 Body height 165.1 cm Mario Pee Other [facility] Other 10-12-2021 09:30-0400 Body mass index (BMI) [Ratio] 37.27 kg/m2 [facility] Other [facility] Other 10-12-2021 09:30-0400 Body temperature 98.3 [degF] [facility] Other [facility] Other 10-12-2021 09:30-0400 Body weight 101.61 kg Mario Pee Other [facility] Other 10-12-2021 09:30-0400 Diastolic blood pressure 80 mm[Hg] Mario [facility] Other [facility] Other 10-12-2021 09:30-0400 Respiratory rate 18 /min Mario [facility] Other [facility] Other 10-12-2021 09:30-0400 Systolic blood pressure 110 mm[Hg] [facility] Other [facility] Other 09-27-2021 17:00-0400 Body height 165.1 cm Mario Pee Other [facility] Other 09-27-2021 17:00-0400 Body mass index (BMI) [Ratio] 38.1 kg/m2 [facility] Other [facility] Other 09-27-2021 17:00-0400 Body temperature 97.6 [degF] [facility] Other [facility] Other 09-27-2021 17:00-0400 Body weight 103.87 kg Mario Pee Other [facility] Other 09-27-2021 17:00-0400 Diastolic blood pressure 62 mm[Hg] Mario P[facility] Other [facility] Other 09-27-2021 17:00-0400 Respiratory rate 20 /min Mario [facility] Other [facility] Other 09-27-2021 17:00-0400 SaO2% (BldA) [Mass fraction] 97 % [facility] Other [facility] Other 09-27-2021 17:00-0400 Systolic blood pressure 122 mm[Hg] [facility] Other [facility] Other 05-30-2021 18:15-0500 Body height 165.1 cm Mario Pee Other [facility] Other 05-30-2021 18:15-0500 Body mass index (BMI) [Ratio] 37.6 kg/m2 [facility] Other [facility] Other 05-30-2021 18:15-0500 Body temperature 97.3 [degF] Mario [facility] Other [facility] Other 05-30-2021 18:15-0500 Body weight 102.51 kg Mario Pee Other [facility] Other 05-30-2021 18:15-0500 Diastolic blood pressure 82 mm[Hg] [facility] Other [facility] Other 05-30-2021 18:15-0500 Respiratory rate 20 /min Mario [facility] Other [facility] Other 05-30-2021 18:15-0500 SaO2% (BldA) [Mass fraction] 97 % [facility] Other [facility] Other 05-30-2021 18:15-0500 Systolic blood pressure 122 mm[Hg] Mario [facility] Other [facility] Other 05-02-2021 18:30-0500 Body height 165.1 cm Mario P[facility] Other [facility] Other 05-02-2021 18:30-0500 Body mass index (BMI) [Ratio] 36.77 kg/m2 [facility] Other [facility] Other 05-02-2021 18:30-0500 Body temperature 97.6 [degF] Mario [facility] Other [facility] Other 05-02-2021 18:30-0500 Body weight 100.25 kg Mario P[facility] Other [facility] Other 05-02-2021 18:30-0500 Diastolic blood pressure 70 mm[Hg] [facility] Other [facility] Other 05-02-2021 18:30-0500 Respiratory rate 20 /min [facility] Other [facility] Other 05-02-2021 18:30-0500 SaO2% (BldA) [Mass fraction] 96 % [facility] Other [facility] Other 05-02-2021 18:30-0500 Systolic blood pressure 118 mm[Hg] [facility] Other [facility] Other Encounters Encounter Date Encounter Type Care Provider Facility Start: 05-07-2023 End: 05-07-2023 ambulatory Mario P[facility] Other [facility] Other Start: 05-07-2023 Telephone encounter Mario Pee [facility] Start: 03-21-2023 End: 03-21-2023 ambulatory Mario Pee Other [facility] Other Start: 03-21-2023 Telephone encounter Mario Pee [facility] Start: 02-13-2023 End: 02-13-2023 ambulatory Mario P[facility] Other [facility] Other Start: 02-13-2023 Telephone encounter Mario Pee [facility] Start: 01-29-2023 End: 01-29-2023 ambulatory Mario [facility] Other [facility] Other Start: 01-29-2023 Office outpatient visit 15 minutes Mario Pee [facility] Start: 01-21-2023 End: 01-21-2023 ambulatory Mario [facility] Other [facility] Start: 01-21-2023 Telephone encounter Mario Pee [facility] Start: 01-01-2023 End: 01-02-2023 ambulatory Erin Chavez Facility:[facility] Start: 01-01-2023 End: 01-01-2023 Patient encounter procedure Erin Chavez [facility] Start: 12-20-2022 End: 12-20-2022 ambulatory [facility] Other [facility] Start: 12-20-2022 Telephone encounter Mario Pee [facility] Start: 12-12-2022 End: 12-12-2022 ambulatory [facility] Other [facility] Start: 12-12-2022 Office outpatient visit 15 minutes Mario Pee [facility] Start: 11-22-2022 End: 11-23-2022 Emergency department patient visit DO Sonam Montoya Facility:[facility] Start: 11-22-2022 End: 11-23-2022 Emergency department patient visit Sonam Montoya [facility] Start: 11-20-2022 End: 11-20-2022 ambulatory [facility] Other [facility] Start: 11-20-2022 Telephone encounter Mario Pee [facility] Start: 11-14-2022 End: 11-14-2022 ambulatory [facility] Other [facility] Start: 11-14-2022 Office outpatient visit 15 minutes Mario Pee [facility] Start: 10-15-2022 End: 10-15-2022 ambulatory Mario [facility] Other [facility] Start: 10-15-2022 Office outpatient visit 25 minutes Mario Pee [facility] Start: 10-09-2022 End: 10-09-2022 ambulatory Mario Pee Other [facility] Other Start: 10-09-2022 Telephone encounter Mario Pee [facility] Start: 09-17-2022 End: 09-17-2022 ambulatory Mario Pee Other [facility] Other Start: 09-17-2022 Office outpatient visit 15 minutes Mario Pee [facility] Start: 09-17-2022 Telephone encounter Mario Pee [facility] Start: 08-13-2022 End: 08-14-[address] MARIO Cullen PEE Facility:[facility]1 Start: 08-12-2022 End: 08-13-[address] MARIO Cullen PEE Facility:[facility]1 Start: 08-09-2022 End: 08-09-2022 ambulatory Mario Pee Other [facility] Other Start: 08-09-2022 Telephone encounter Mario Pee [facility] Start: 07-08-2022 End: 07-08-2022 ambulatory Vi [place] Other [facility] Other Start: 07-08-2022 Telephone encounter Vi Easterwood [facility] Start: 06-17-2022 End: 06-17-2022 ambulatory Mario Pee Other [facility] Other Start: 06-17-2022 Telephone encounter Mario Pee [facility] Start: 06-14-2022 End: 06-14-2022 ambulatory Mario M. Pee Facility:[facility] Start: 06-14-2022 End: 06-14-2022 ambulatory DO Mario M. Pee Work Phone: [facility] Work Phone: Start: 06-14-2022 End: 06-14-2022 Departed Referred DO Mario Pee Work Phone: [facility]-Lab [place] Work Phone: Start: 06-07-2022 End: 06-07-2022 ambulatory Mario Pee Other [facility] Other Start: 06-07-2022 Telephone encounter Mario Pee [facility] Start: 05-09-2022 End: 05-09-2022 ambulatory Mario Pee Other [facility] Other Start: 05-09-2022 Telephone encounter Mario Pee [facility] Start: 05-06-2022 End: 05-06-2022 ambulatory Mario Pee Other [facility] Other Start: 05-06-2022 Telephone encounter Mario Pee [facility] Start: 05-02-2022 End: 05-03-2022 ambulatory Rell Garcia Facility:[facility] Start: 05-02-2022 End: 05-02-2022 Admission to same day surgery center DO Mario Pee Work Phone: [facility] [place] Start: 05-02-2022 End: 05-02-2022 ambulatory DO Mario M. Pee Work Phone: [facility] Work Phone: Start: 04-25-2022 Telephone encounter Mario Pee [facility] Start: 04-25-2022 End: 04-25-2022 Departed Referred DO Mario Pee Work Phone: [facility] [place] Start: 04-25-2022 End: 04-25-2022 [facility] [employer] Other Start: 04-24-2022 End: 04-24-2022 Emergency department patient visit Arun Ervin Facility:[facility] Start: 04-24-2022 End: 04-24-2022 Emergency department patient visit DO Mario Pee Work Phone: [facility]-Emergency Room Work Phone: Start: 04-23-2022 End: 04-23-2022 ambulatory Mario M. Pee Facility:[facility] Start: 04-23-2022 End: 04-23-2022 Patient encounter procedure DO Mario Pee Work Phone: [facility] Work Phone: Start: 04-17-2022 End: 04-17-2022 ambulatory Mario Pee Other [facility] Other Start: 04-17-2022 Office outpatient visit 15 minutes Mario Pee [facility] Start: 04-17-2022 Telephone encounter Mario Pee [facility] Start: 04-16-2022 End: 04-16-2022 ambulatory Mario Pee Other [facility] Other Start: 04-16-2022 Telephone encounter Mario Pee [facility] Start: 04-10-2022 End: 04-10-2022 ambulatory Mario M. Pee Facility:[facility] Start: 04-10-2022 End: 04-10-2022 ambulatory DO Mario M. Pee Work Phone: [facility] Work Phone: Start: 04-10-2022 End: 04-10-2022 Patient encounter procedure DO Mario Pee Work Phone: [facility] Start: 04-09-2022 End: 04-09-2022 ambulatory Mario Pee Other [facility] Other Start: 04-09-2022 Telephone encounter Mario Pee [facility] Start: 04-08-2022 End: 04-08-2022 ambulatory Mario Pee Other [facility] Other Start: 04-08-2022 Telephone encounter Mario Pee [facility] Start: 03-28-2022 End: 03-30-[address] MARTIN M PEE Facility:[facility] Start: 03-06-2022 End: 03-06-2022 ambulatory Mario Pee Other [facility] Other Start: 03-06-2022 Telephone encounter Mario Pee [facility] Start: 02-10-2022 End: 02-10-[address] MARTIN M PEE Facility:[facility]1 Start: 02-04-2022 End: 02-04-2022 ambulatory Mario Pee Other [facility] Other Start: 02-04-2022 Telephone encounter Mario Pee [facility] Start: 01-29-2022 End: 01-29-2022 ambulatory Mario Pee Other [facility] Other Start: 01-29-2022 Telephone encounter Mario Pee [facility] Start: 01-28-2022 End: 01-28-[address] MARTIN M PEE Facility:[facility] Start: 12-25-2021 End: 12-25-2021 ambulatory Mario Pee Other [facility] Other Start: 12-25-2021 Telephone encounter Mario Pee [facility] Start: 12-12-2021 End: 12-12-2021 ambulatory Mario Pee Other [facility] Other Start: 12-12-2021 Office outpatient visit 15 minutes Mario Pee [facility] Start: 11-26-2021 End: 11-26-2021 ambulatory Mario Pee Other [facility] Other Start: 11-26-2021 Telephone encounter Mario Pee [facility] Start: 11-21-2021 End: 11-21-2021 ambulatory Mario Pee Other [facility] Other Start: 11-21-2021 Telephone encounter Mario Pee [facility] Start: 11-05-2021 End: 11-05-2021 ambulatory Mario Pee Other [facility] Other Start: 11-05-2021 Telephone encounter Mario Pee [facility] Start: 10-29-2021 End: 10-29-[address] MARIO M PEE Facility: Start: 10-23-2021 End: 10-23-2021 ambulatory Mario Pee Other [facility] Other Start: 10-23-2021 Telephone encounter Mario Pee [facility] Start: 10-19-2021 End: 10-19-2021 ambulatory Mario Pee Other [facility] Other Start: 10-19-2021 Telephone encounter Mario Pee [facility] Start: 10-12-2021 End: 10-12-2021 ambulatory Mario Pee Other [facility] Other Start: 10-12-2021 Office outpatient visit 15 minutes Mario Pee [facility] Start: 10-12-2021 Telephone encounter Mario Pee [facility] Start: 10-01-2021 End: 10-01-2021 ambulatory Mario Pee Other [facility] Other Start: 10-01-2021 Telephone encounter Mario Pee [facility] Start: 09-27-2021 End: 09-27-2021 ambulatory Mario Pee Other [facility] Other Start: 09-27-2021 Office outpatient visit 15 minutes Mario Pee [facility] Start: 09-18-2021 End: 09-18-2021 ambulatory Mario Pee Other [facility] Other Start: 09-18-2021 Telephone encounter Mario Pee [facility] Start: 09-10-2021 End: 09-10-2021 ambulatory Mario Pee Other [facility] Other Start: 09-10-2021 Telephone encounter Mario Pee [facility] Start: 09-05-2021 End: 09-05-2021 Patient encounter procedure Erin Chavez [facility] Start: 08-13-2021 End: 08-13-2021 ambulatory Mario Pee Other [facility] Other Start: 08-13-2021 Telephone encounter Mario Pee [facility] Start: 08-01-2021 End: 08-01-2021 ambulatory Mario Pee Other [facility] Other Start: 08-01-2021 Telephone encounter Mario Pee [facility] Start: 07-06-2021 End: 07-06-2021 ambulatory Vi Easterwood Other [facility] Other Start: 07-06-2021 Telephone encounter Vi Easterwood [facility] Start: 06-18-2021 End: 06-18-2021 ambulatory Mario Pee Other [facility] Other Start: 06-18-2021 Telephone encounter Mario Pee [facility] Start: 06-08-2021 End: 06-08-2021 ambulatory Mario Pee Other [facility] Other Start: 06-08-2021 Telephone encounter Mario Pee [facility] Start: 05-30-2021 End: 05-30-2021 ambulatory Mario Pee Other [facility] Other Start: 05-30-2021 Office outpatient visit 15 minutes Mario Pee [facility] Start: 05-21-2021 End: 05-21-2021 ambulatory Mario Pee Other [facility] Other Start: 05-21-2021 Telephone encounter Mario Pee [facility] Start: 05-09-2021 End: 05-09-2021 ambulatory Mario Pee Other [facility] Other Start: 05-09-2021 Telephone encounter Mario Pee [facility] Start: 05-08-2021 End: 05-08-2021 ambulatory Mario Pee Other [facility] Other Start: 05-08-2021 Telephone encounter Mario Pee [facility] Start: 05-02-2021 End: 05-02-2021 ambulatory Mario Pee Other [facility] Other Start: 05-02-2021 Office outpatient visit 15 minutes Mario Pee [facility] Procedures Date Procedure Procedure Detail Performing Clinician Start: 06-14-2022 Urine culture DO Mario R uggles Work Phone: Start: 05-02-2022 Antibody screen Mario gomes Comment on above: Result Comment: PERF ORMED BY: [facility] [place] [address] PATHOLOGIST BENEFIT DIRECTOR LEV HERNÁNDEZ M.D. Start: 05-02-2022 Total hysterectomy v ia vaginal approach DO Mario Pee Work Phone: Start: 04-23-2022 SARS Antigen (LFIA) DO Mario Pee Work Phone: Start: 04-10-2022 Antibody screen Mario gomes Comment on above: Order Comment: Date of Surgery: [id number] Result Comment: PERF ORMED BY: [facility] [address] [place] [address] PATHOLOGIST BENEFIT DIRECTOR LEV HERNÁNDEZ M.D. Start: 04-10-2022 Urine culture [...] Date Care Activity Detail Author Start: 05-02-2022 [facility] Start: 04-25-2022 Total hysterectomy v ia vaginal approach OR Vag Hyster Lap Assist TLH/LAVH (Not Applicable) [facility] Start: 04-24-2022 Blood chemistry [facility] Start: 04-24-2022 Hepatic function panel [facility] Start: 04-24-2022 Lipase measurement [facility] Start: 04-24-2022 [facility] Bacteria identified in Urine by Culture [facility] Bacteria identified in Urine by Culture [facility] Patient referral [facility] Work Phone: Immunizations Immunization Date Immunization Notes Care Provider Fa jacinta NEGATED: Highlighted row has not occurred!05-16-2021 SARS-CoV-2 (COVID-19) Ad26 vaccine, recombinant Erin Lue [facility] Payers Date Payer Category Payer Self-pay [id number] 1990 Unknown [id number] 1989 Unknown [id number] [id number] 1989 Unknown [id number] 2..[id number] 1989 Unknown [id number] 2..[id number] 1989 Unknown [id number] 2..[id number] 1989 Unknown [id number] [id number] 1989 Unknown [id number] 2.16.840.1.294083.3.579.2.593 1989 Unknown [id number] [id number] 1989 Unknown [id number] [id number] 1960 Medicaid [id number] 1960 Unknown [id number] 2.1 [id number] Unknown Regular Auto/Liability [id number] Unknown [id number] [id number] Unknown [id number] 2.16.840.1.110696.3.579.2.531 Unknown [id number] 2.16.840.1.507431.3.579.2.531 Unknown [id number] 2.16.840.1.870964.3.579.2.531 Unknown [id number] 2.16.840.1.822030.3.579.2.531 Unknown [id number] [id number] Social History Date Type Detail Facility Start: 05-16-2021 End: 05-02-2022 Tobacco smoking status Never smoked tobacco (finding) [facility] Other Tobacco smoking status Never [facility] Sex Assigned At Female [facility] [employer] Other Start: 1990 Sex Assigned At Female [facility] Goals Date Patient Goal Desired Activity /State Functional Status Date Assessment Result Facility 11-22-2022 Functional Status N/A [facility] Clinical Notes 03-06-2021 to 05-07-2023 Note Date & Type Note Facility 05-07-2023 Evaluation note Encounter Date Diagnosis Assessment Notes Apr, Anxiety (ICD-10 - F41.9) [facility] Other 10-26-2023 Evaluation note* Encounter Date Diagnosis Assessment Notes Treatment Notes Treatment Clinical Notes Jan, Anxiety (ICD-10 - F41.9) [facility] Other 10-11-2023 Evaluation note* Encounter Date Diagnosis Assessment Notes Treatment Notes Treatment Clinical Notes Jan, BMI 37.0-37.9, adult (ICD-10 - Z68.37) [facility] - eRX sent. We did discuss that she needs to do a better job with the monitoring of her diet. If her weight loss does not improve, we must consider withholding medication. She voices agreement and understanding. [facility] Other 10-03-2023 Evaluation note* Encounter Date Diagnosis Assessment Notes Treatment Notes Treatment Clinical Notes Jan, Anxiety (ICD-10 - F41.9) [facility] Other 09-01-2023 Evaluation note* Encounter Date Diagnosis Assessment Notes Treatment Notes Treatment Clinical Notes Dec, Anxiety (ICD-10 - F41.9) [facility] Other 08-24-2023 Evaluation note* Encounter Date Diagnosis Assessment Notes Treatment Notes Treatment Clinical Notes Nov, BMI 37.0-37.9, adult (ICD-10 - Z68.37) [facility] -E Rx sent. No other change today. We will recheck in 1 month. [facility] Other 08-05-2023 Hospital Discharge instructions Patient Education [...] Follow these instructions at home: Medicines Take cajj-ytw-ldjntgz and prescription medicines only as told by your health care provider. Ask your health care provider if the medicine prescribed to you: ?Requires you to avoid driving or using machinery. ?Can cause constipation. You may need to take these actions to prevent or treat constipation: ?Drink enough fluid to keep your urine pale yellow. ?Take snxl-jxy-ujuukbp or prescription medicines. ?Eat foods that are [...] is important. Where to find more information [employer]: www.acog.org Office [...] provider. Document Revised: 11/08/2020 Document Reviewed: 11/08/2020 [employer] Patient Education 2022 [employer]. 11/23/2022 01:20:40 Laparoscopic Lysis of Abdominal Adhesions [...] including vitamins, herbs, eye drops, creams, and xslu-omy-nexnkld medicines. Any problems you or family members [...] provider tells you to take them. Taking txcz-crc-hzsikdi medicines, vitamins, herbs, and supplements. General instructions [...] provider. Document Revised: 12/15/2020 Document Reviewed: 12/15/2020 [employer] Patient Education 2022 [employer]. 11/23/2022 01:20:40 Adhesions, Umai-cc-Ndjp Adhesions Adhesions are strings of tissue that [...] needed. Follow these instructions at home: Take vrzq-vsx-macjgmx and prescription medicines only as told by [...] Treatment may include medicines and surgery. Take bthu-laz-gfgnkfb and prescription medicines only as told by your doctor. This information is not intended to replace advice given to you by your health care provider. Make sure you discuss any questions you have with your health care provider. Document Revised: 12/15/2020 Document Reviewed: 12/15/2020 [employer] Patient Education 2022 [employer]. 11/23/2022 01:20:40 Abdominal Pain, Adult, Bcfw-zs-Nmbr Abdominal Pain, Adult Many things can cause belly (abdominal) pain. Most times, belly pain is not dangerous. Many cases of belly pain can be watched and treated at home. Sometimes, though, belly pain is serious. Your doctor will try to find the cause of your belly pain. Follow these instructions at home: Medicines Take vdno-jnn-bqntqjm and prescription medicines only as told by [...] your belly pain for any changes. Take qjbi-koy-auxwhct and prescription medicines only as told by [...] provider. Document Revised: 08/16/2019 Document Reviewed: 08/16/2019 [employer] Patient Education 2022 [employer]. Follow Up Care 11/22/2022 19:01:50 With:MARIO GLASGOW Address: [address] [address]- Business (1) When:11/26/2022 [facility]07-27-2023 Evaluation note* Encounter Date Diagnosis Assessment Notes Treatment Notes Treatment Clinical Notes Oct, BMI 37.0-37.9, adult (ICD-10 - Z68.37) [facility] - eRX sent. Call with any concerns. [facility] Other 06-27-2023 Evaluation note* Encounter Date Diagnosis [...] We will see patient back for follow-up. [facility] Other 05-30-2023 Evaluation note* Encounter Date Diagnosis Assessment Notes Treatment Notes Treatment Clinical Notes August, BMI 39.0-39.9,adult (ICD-10 - Z68.39) [facility] - [facility] sent. Call with any concern. [facility] Other 05-30-2023 Evaluation note* Encounter Date Diagnosis Assessment Notes Treatment Notes Treatment Clinical Notes August, BMI 39.0-39.9,adult (ICD-10 - Z68.39) [facility] Other 12-28-2022 Evaluation note* Encounter Date Diagnosis [...] year, with out any concerns with anesthesia. [facility] Other 09-06-2022 Evaluation note* Encounter Date Diagnosis Assessment Notes Treatment Notes Treatment Clinical Notes Dec, BMI 36.0-36.9,adult (ICD-10 - Z68.36) [facility] Other 08-24-2022 Evaluation note* Encounter Date Diagnosis [...] third and final prescription of the Adipex. [facility] Other 08-03-2022 Evaluation note* Encounter Date Diagnosis Assessment Notes Treatment Notes Treatment Clinical Notes Nov, BMI 36.0-36.9,adult (ICD-10 - Z68.36) [facility] Other 07-05-2022 Evaluation note* Encounter Date Diagnosis Assessment Notes Treatment Notes Treatment Clinical Notes Oct, Conjunctivitis (ICD9-CM - 372.30) [facility] Other 06-24-2022 Evaluation note* Encounter Date Diagnosis Assessment Notes Treatment Notes Treatment Clinical Notes Sep, BMI 37.0-37.9, adult (ICD-10 - Z68.37) [facility] sent. Lengthy discussion regarding side effects as well as possible outcomes of the medication. We will see her back in 1 month. Patient to call with any concerns. [facility] Other 06-24-2022 Evaluation note* Encounter Date Diagnosis Assessment Notes Treatment Notes Treatment Clinical Notes Sep, BMI 37.0-37.9, adult (ICD-10 - Z68.37) [facility] Other 06-13-2022 Evaluation note* Encounter Date Diagnosis Assessment Notes Treatment Notes Treatment Clinical Notes Sep, BMI 38.0-38.9,adult (ICD-10 - Z68.38) [facility] Other 06-09-2022 Evaluation note* Encounter Date Diagnosis [...] psychiatric diagnoses/as well as her seizure concerns. [facility] Other 04-27-2022 Hospital Discharge instructions Patient Education [...] fried and sweet foods. General instructions Take kpks-qsi-ialayrw and prescription medicines only as told by [...] 02/01/2010 Document Revised: 07/29/2019 Document Reviewed: 04/23/2018 [employer] Patient Education 2019 [employer]. [facility]-09-[facility] Evaluation note* Encounter Date Diagnosis Assessment [...] 2mg at that time of refill need. [facility] Other 01-18-2022 Evaluation note* Encounter Date Diagnosis Assessment Notes Treatment Notes Treatment Clinical Notes Apr, Dysuria (ICD-10 - R30.0) [facility] Other 01-12-2022 Evaluation note* Encounter Date Diagnosis [...] next week. She voices agreement and understanding. [facility] Other 11-17-2021 NoteHNO ID: [id number] Author: Rosalie Haile MD Service: ? Author Type: Physician Type: Progress Notes Filed: 03/08/2021 8:38 PM Note Text: [facility] - General Progress Note SULLY ENRIQUEZ : 1990 AGE: 31 SEX: F CSN: [id number] [facility]: [facility] LOCATION: [facility] ATTENDING PHYSICIAN: Rosalie Haile M.D. DATE OF [...] follow up. Rosalie Haile M.D. Internal Medicine ESPINOZA:[id number] NoteHNO ID: [id number] Author: Saravanan Yancey MD Service: Neurology General [...] Will await MRI results. Saravanan Yancey MD DPhil Neurology Resident, PGY-4 March 07, 2021[id number] NoteHNO ID: [id number] Author: JULITO Lino Service: Care Management Author Type: Registered Nurse Cardiovascular Icu Type: Care Mgt Initial Assessment Filed: 03/06/2021 4:04 PM Note Text: CARE MANAGEMENT: ASSESSMENT AND DISCHARGE PLAN SERVICE DATE: March 06, 2021 SERVICE TIME: 4:00 PM PRIMARY CARE PHYSICIAN: Roxie Strickland NP ADMISSION STATUS: Inpatient Needs Prior to Discharge: None MEDICAL: 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
== END 2023-05-10 09:54 | disposition home or self-care (01) ==
LOC: CT 09:53
PROVIDERS: PCP Family Medicine; Visit Provider Podiatrist Foot & Ankle Surgery
DX: S90.32XA Contusion of left foot, initial encounter (principal); S92.415A Nondisplaced fracture of proximal phalanx of left great toe, initial encounter for closed fracture; S82.832A Other fracture of upper and lower end of left fibula, initial encounter for closed fracture
CPT/HCPCS: 73700

== ENCOUNTER 2023-05-10 10:08 | Emergency (ER) | payer OTHER, SELFPAY ==
[2023-05-10 10:14] VITALS: BP 92/71; PULSE 89; RESP 18; TEMP 37; O2SAT 98; BMI 36.6
--- OUTSIDE RECORDS SUMMARY | 2023-05-10 10:16 | XMS_ITS | CCD ---
Author Name Unknown Address [address] [place] [address] Organization [facility] Care Team Providers Care Auto Emissions Technician Name Role Phone MARIO GLASGOW Primary Care Physician Carol Ann Chacon Unavailable Unavailable Pee Mraio Unavailable Vi Benites Unavailable Pee, DO Mario Morton Primary Care Provider DO Rell Garcia Attending Provider [phone] DO Arun Ervin Emergency Provider Pee, DO Mario Cullen. Attending Provider [phone] Mario Glasgow Admitting Unavailable Mario Glasgow Attending [...] [azithromycin] Drug Allergy 04-10-20 22 Itching, Unknown, Full [employer] [facility] [place] Other (4 sources) cefTRIAXone; Translations: [ceftriaxone] Drug Allergy Mean (qualifier value) [facility] (20 sources) Ciprofloxacin; Translations: [ciprofloxacin] Drug Allergy 04-10-20 22 Itching, Unknown, Full [employer] [facility] [place] Other (9 sources) Dicyclomine; Translations: [dicyclomine] Drug Allergy 04-10-20 22 Agitation, Agitated [facility] (20 sources) Ketorolac; Translations: [ketorolac] Drug Allergy 04-10-20 22 Itching, Unknown, dot429es [facility] [place] Other (20 sources) Metoclopramide; Translations: [metoclopramide] Drug Allergy 04-10-20 22 Itching, Unknown, Agitated [facility] [place] Other (20 sources) Morphine; Translations: [morphine] Drug Allergy Hives, Hives-IV [facility] [place] Other Comment on above: causes hives (20 sources) NITROFURANTOIN, MACROCRYSTALS / Nitrofurantoin, Monohydrate; Translations: [nitrofurantoin] Drug Allergy Itching, Unknown [facility] Other (20 sources) Penicillin; Translations: [penicillin] Drug Allergy Unknown (qualifier value) [employer] [facility] [place] Other (4 sources) zolpidem; Translations: [zolpidem] Drug Allergy Agitation [facility] (20 sources) diphenhydrAMINE Drug Allergy IV Hives [facility] Other (20 sources) LORazepam Drug Allergy 04-10-20 22 aggressive, Extrapyramidal Symptoms [facility] (20 sources) Penicillin V Drug Allergy Unknown [facility] Other (10 sources) diphenhydrAMINE Drug Allergy IV Hives [facility] Other (20 sources) DULoxetine Drug Allergy worsen depression [facility] Other (6 sources) Nitrofurantoin; Translations: [nitrofurantoin] Drug Allergy 04-10-20 22 Hives [facility] (7 sources) Penicillins; Translations: [Penicillins] Allergy to substance 09-17-19 13 Unknown Reaction [facility] (1 source) Azithromycin Drug Allergy 05-02-19 [facility] Repository (1 source) Ciprofloxacin Drug Allergy 05-02-19 [facility] Repository (1 source) Dicyclomine Drug Allergy 05-02-19 [facility] Repository (1 source) Ketorolac Drug Allergy 05-02-19 [facility] Repository (1 source) LORazepam Drug Allergy 05-02-19 [facility] Repository (1 source) Metoclopramide Drug Allergy 05-02-19 [facility] Repository (1 source) Azithromycin Drug Allergy 09-17-19 13 [facility] Repository (1 source) Ciprofloxacin Drug Allergy 09-17-19 13 [facility] Repository (1 source) Dicyclomine Drug Allergy 07-20-19 15 [facility] Repository (1 source) Iothalamate Drug Allergy 09-17-19 13 [facility] (1 source) Ketorolac Drug Allergy 03-11-20 13 [facility] (1 source) LORazepam Drug Allergy 09-10-19 16 [facility] (1 source) Nitrofurantoin Drug Allergy 09-17-19 13 [facility] (1 source) LORazepam; Translations: [Ativan] Drug Allergy [facility] Repository Medications Current Medications Medication Drug Class(es) Dates Sig (Normalized) Sig (Original) Acetaminophen / HYDROcodone (14 sources) Opioid Agonist Start: 05-16-2021 [place] 5/325 Tab Oral, q6hr, Refill(s) 0 Start [...] Active Start: 06-08-2021 take 1 tablet by [facility] every twelve hours Xanax 2 MG 1 tablet as needed Orally Twice a day for 30 days May, Active Start: 05-08-2021 take 1 tablet by [facility] every twelve hours Xanax 1 MG 1 [...] Start: 03-14-2017 take 2 tablets by mo [facility] twice daily Alprazolam (Xanax) 1 mg Tablet [...] 90 tab(s), Refills(s) 3, Bladder problems, Pharmacy: [facility]/pharmacy #[id number], 165, cm, 05/18/21 11:56:00 EST, Height/Length Dosing, [...] pain, # 12 tab(s), Refills(s) 0, Pharmacy: [facility]/pharmacy #[id number], 165, cm, 11/22/22 19:18:00 [...] procedure, # 2 tab(s), Refills(s) 0, Pharmacy: [facility]/pharmacy #[id number], 165, cm, 05/18/21 11:56:00 EST, Height/Length Dosing, 100, kg, 05/16/21 9:5... 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] Onset: 08-15-2022 Episodic Other [...] Range Facility Physician Referralon 023 Physician Referral [id number]#[id number] [facility] Physician Referralon 023 Physician Referral [id number]#1.00CD:12 7 [facility] RAD - MISCon 12-27-2022 [facility] [id number]#1.00CD:12 7 [facility] ED Note-Physicianon 11-27-19 23 ED Note-Physician [id number]#[id number]:12 7 [facility] ED Note-Physician Basic Information Time Seen: Gaby Turner PA-C 11/22/2022 20:47 Chief Complaint L flank pain worsening x 2 weeks. pt. seen at [facility] x 2 with negative workup. hx kidney stones. also c/o N/V. denies fevers. History of Present Illness This patient presents emergency department chief complaint of left flank pain. The patient states this has been going on for 2 weeks. She has been seen at [facility] twice but they could not determine an [...] Patient has not followed up with a mercury purifier in a long time. I discussed with [...] the patient (more content not included)... Normal [facility] Comment on above: Result Comment: Elec [...] Locations R1: This test was performed at: [facility], [address] [place] [address], [address]- , , [facility] Comment on above: Performed By: #### 1 [id number], 8761676, [id number] #### [facility] [address] [place] [address] Discharge Instructionson Discharge Instructions [id number]#[id number]:1 27 [facility] ED Clinical Summaryon 2022 ED Clinical Summary (Inserted Image. Jeniffer ble to display) [address] [address] ED Clinical Summary Person Information Name: SULLY ENRIQUEZ Margi/[facility] Age: 32 Years : 1990 Sex: Female Language: Bruneian PCP: MAROI GLASGOW DO Marital Status: Visit Id: Visit [...] 11/23/2022 01:20:40 11/23/2022 01:20:40 11/23/2022 01:20:40 ADDRESS: [address] [place] [id number] PHYS DOC NOTES: MEDICAL INFORMATION: Prescriptions Given: New Medications [id number], [address], [place] [id number], [phone] tramadol (traMADOL 50 mg Tab) 1 Tablets By Mouth every 6 hours as needed for pain. Refills: 0. Medications to Continue with No Changes Other Medications acetaminophen-hydrocodone ([place] 5/325 Tab) By Mouth every 6 hours. [...] Endometriosis; Laparoscopic Lysis of Abdominal Adhesions; Adhesions, Ijpr-gs-Vzzh; Abdominal Pain, Adult, Zqgh-af-Velm Follow up: With: Address: When: MARIO GLASGOW [address] [place] [address] TONY, [facility] [address] [place] [phone] Business (1) In 3 days 11/26/2022 DIAGNOSIS: 1:Chronic left flank pain; 2:Abdominal pain, acute, left upper quadrant; Other chronic pain Normal [facility] ED Patient Education Noteon 11-23-2022 ED [...] including vitamins, herbs, eye drops, creams, and ggpf-zwx-jnjcihg medicines. ? Any problems you or family [...] tells you to take them. ? Taking efqq-usr-fbfctlr medicines, vitamins, herbs, and supplements. General instructions [...] returns. Aft (more content not included)... Normal [facility] ED Patient Summaryon 023 ED Patient Summary (Inserted Image. Jeniffer ble to display) [address] [address] Patient Discharge Instructions Person Information Name: SULLY ENRIQUEZ Age: 32 Years Arrival Date: 11/22/2022 19:01:04 Discharge Diagnosis: 1:Chronic left flank pain; 2:Abdominal pain, acute, left upper quadrant; Other chronic pain Primary Care Physician: MARIO GLASGOW DO Provider Information Primary Provider: Sonam Montoya DO Advanced Juvenile Officer:None The exam and treatment you received in the Emergency Department were for an urgent problem and are not intended as complete care. It is important that you follow up with a doctor, nurse practitioner, or physician?s museum assistant for ongoing care. If your symptoms [...] Follow-up Instructions: With: Address: When: MARIO GLASGOW [address] [place] [address] [address] Business (1) In 3 days 11/26/2022 In the event that this physician does not participate in your insurance network, please consult with your insurance company to find a nearby participating provider. Patient Education Materials: Endometriosis; Laparoscopic Lysis of Abdominal Adhesions; Adhesions, Vumn-ox-Bdid; Abdominal Pain, Adult, Qmsy-tv-Rscq A MESSAGE TO ALL PATIENTS REGARDING OPIOIDS PRESCRIPTION OPIOIDS: WHAT YOU NEED TO KNOW Prescription opioids can be used to help relieve bqbexdfh-zn-neidtp pain and are often prescribed following a [...] struggling wit (more content not included)... Normal [facility] XR Abdomen 1 Viewon 11-24-19 XR [...] mGy = na DAP = na Normal [facility] Auto Diffon 11-22-2022 Basophils/100 WBC (Bld) 0.6 % Normal 0.0-2.0 [facility] Comment on above: Order Comment: Order Added by Discern Expert. Performed By: #### 2 846995, 4649074, 6137274, 16478909, 1140763, 2732066 #### [facility] [address] [place] [address] Basophils/Leukocytes Auto (Bld) [Pure # fraction] 0.0 E9/L Normal 0.0-0.2 [facility] Comment on above: Order Comment: Order Added by Discern Expert. Performed By: #### 2 588615, 2764613, 3757632, 86438170, 9084876, 5667833 #### [facility] [address] [place] [address] Eosinophils/100 WBC (Bld) 1.5 % Normal 0.0-8.0 [facility] Comment on above: Order Comment: Order Added by Discern Expert. Performed By: #### 2 190540, 3720139, 0242978, 28271297, 1284952, 6490076 #### [facility] [address] [place] [address] Eosinophils/Leukocytes Auto (Bld) [Pure # fraction] 0.1 E9/L Normal 0.0-0.5 [facility] Comment on above: Order Comment: Order Added by Discern Expert. Performed By: #### 2 608794, 6469203, 2919209, 81684302, 4486392, 4794581 #### [facility] [address] [place] [address] Lymphocytes/100 WBC (Bld) 33.5 % Normal 14.0-50.0 [facility] Comment on above: Order Comment: Order Added by Discern Expert. Performed By: #### 2 369672, 0319670, 7660057, 52498260, 2453782, 9694735 #### [facility] [address] [place] [address] Lymphocytes/Leukocytes Auto (Bld) [Pure # fraction] 2.6 E9/L Normal 1.0-4.0 [facility] Comment on above: Order Comment: Order Added by Discern Expert. Performed By: #### 2 814534, 0600659, 4932232, 95354995, 4480760, 0730522 #### [facility] [address] [place] [address] Monocytes/100 WBC (Bld) 8.6 % Normal 4.0-14.[address] [facility] Comment on above: Order Comment: Order Added by Discern Expert. Performed By: #### 2 091445, 1058651, 8627878, 38001200, 3861540, 2063080 #### [facility] [address] [place] [address] Monocytes/Leukocytes Auto (Bld) [Pure # fraction] 0.7 E9/L Normal 0.2-1.0 [facility] Comment on above: Order Comment: Order Added by Discern Expert. Performed By: #### 2 125412, 4886134, 5809596, 84032496, 8403767, 7709999 #### [facility] [address] [place] [address] Neutrophils/100 WBC (Bld) 55.8 % Normal 36.0-75.0 [facility] Comment on above: Order Comment: Order Added by Discern Expert. Performed By: #### 2 472057, 9136123, 9688645, 24214786, 7255951, 7501805 #### [facility] [address] [place] [address] Neutrophils/Leukocytes Auto (Bld) [Pure # fraction] 4.3 E9/L Normal 2.0-7.5 [facility] Comment on above: Order Comment: Order Added by Discern Expert. Performed By: #### 2 384083, 6133496, 0342732, 66435274, 8821957, 3330133 #### [facility] [address] [place] [address] BMPon 11-22-2022 Creatinine [Mass/Vol] 1.0 mg/dL Normal 0.5-1.3 [facility] Comment on above: Performed By: #### 2 474096, 2047296, 4652771, 32280489, 8044180, 3571329 #### [facility] [address] [place] [address] Urea nitrogen [Mass/Vol] 16 mg/dL Normal 5-21 [facility] Comment on above: Performed By: #### 2 046258, 3952631, 0758103, 70186576, 4032282, 0954644 #### [facility] [address] [place] [address] Urea nitrogen/Creatinine [Mass ratio] 16 No Units Normal 10-20 [facility] Comment on above: Performed By: #### 2 057086, 9456171, 9219957, 36283651, 3068503, 1756001 #### [facility] [address] [place] [address] Anion gap [Moles/Vol] 15 mmol/L Normal 6-16 [facility] Comment on above: Performed By: #### 2 665281, 2327859, 4530488, 54869245, 4902777, 5631124 #### [facility] [address] [place] [address] Calcium [Mass/Vol] 9.6 mg/dL Normal 8.9-11.1 [facility] Comment on above: Performed By: #### 2 745768, 0152351, 4423549, 37578043, 9531685, 1455908 #### [facility] [address] [place] [address] Chloride [Moles/Vol] 107 mmol/L Normal 101-111 [facility] Comment on above: Performed By: #### 2 682744, 2240886, 1225488, 70134776, 2931491, 9386667 #### [facility] [address] [place] [address] CO2 [Moles/Vol] 19 mmol/L Low 21-31 [facility] Comment on above: Performed By: #### 2 800854, 7200191, 1298867, 50538137, 1704027, 3113993 #### [facility] [address] [place] [address] Glucose [Mass/Vol] 97 mg/dL Normal 55-199 [facility] Comment on above: Result Comment: If t his glucose result represents a fasting glucose, interpretation should refer to the following reference range: 55-99 mg/dL Performed By: #### 2 113700, 9450905, 0535631, 83861857, 4712251, 8191540 #### [facility] [address] [place] [address] Potassium [Moles/Vol] 3.9 mmol/L Normal 3.5-5.3 [facility] Comment on above: Performed By: #### 2 424010, 5043798, 6772412, 14842428, 9804242, 2081204 #### [facility] [address] [place] [address] Sodium [Moles/Vol] 137 mmol/L Normal 135-145 [facility] Comment on above: Performed By: #### 2 479849, 7537858, 1901172, 27217045, 2927478, 4153972 #### [facility] [address] [place] [address] CBC w/ Auto Diffon 3 Erythrocyte distribution width (RBC) [Ratio] 13.0 % Normal 10.9-14.2 [facility] Comment on above: Performed By: #### 2 046937, 0360966, 4813608, 84731827, 0999131, 8388257 #### [facility] [address] [place] [address] Hematocrit (Bld) [Volume fraction] 42.7 % Normal 34.0-46.0 [facility] Comment on above: Performed By: #### 2 637459, 6149311, 1598810, 60753016, 4347021, 9408000 #### [facility] [address] [place] [address] Hemoglobin (Bld) [Mass/Vol] 14.6 g/dL Normal 12.0-16.0 [facility] Comment on above: Performed By: #### 2 175391, 0913157, 8646332, 79360521, 2207488, 3474258 #### [facility] [address] [place] [address] MCH (RBC) [Entitic mass] 31.7 pg Normal 27.0-34.0 [facility] Comment on above: Performed By: #### 2 033919, 1339016, 3583050, 86950456, 0298247, 0324445 #### [facility] [address] [place] [address] MCHC (RBC) [Mass/Vol] 34.1 g/dL Normal 31.4-36.0 [facility] Comment on above: Performed By: #### 2 371509, 3744338, 8494035, 91394891, 6411212, 6591489 #### [facility] [address] [place] [address] MCV (RBC) [Entitic vol] 93.1 fL Normal 80.0-100.0 [facility] Comment on above: Performed By: #### 2 380171, 5966118, 4572895, 86625070, 9514446, 5734406 #### [facility] [address] [place] [address] Platelet mean volume (Bld) [Entitic vol] 8.8 fL Normal 6.4-10.8 [facility] Comment on above: Performed By: #### 2 786087, 2819167, 3300016, 79595532, 7047378, 4518902 #### [facility] [address] [place] [address] Platelets (Bld) [#/Vol] 199.0 E9/L Normal 150.0-500.0 [facility] Comment on above: Performed By: #### 2 910124, 1994226, 3878775, 31222117, 2156468, 8192268 #### [facility] [address] [place] [address] RBC (Bld) [#/Vol] 4.6 E12/L Normal 4.3-5.9 [facility] Comment on above: Performed By: #### 2 887920, 5367339, 2203045, 03158183, 1204308, 3265836 #### [facility] [address] [place] [address] WBC corrected for nucl RBC Auto (Bld) [#/Vol] 7.7 E9/L Normal 4.0-11.0 [facility] Comment on above: Performed By: #### 2 682861, 6498547, 2520611, 03722014, 3555063, 6187944 #### [facility] [address] [place] [address] CHEMISTRYOrdered By: SYSTEM SYSTEM on 11-22-2022 Albumin [...] Remisol Consent for Treatmenton Consent for Treatment [id number]#[id number]:12 7 Normal [facility] HEMATOLOGYOrdered By: SYSTEM SYSTEM on 11-22-2022 [...] Bilirubin.indirect [Mass or moles/Vol] UTC Abnormal 0.1-0.9 [facility] Comment on above: Result Comment: Resu lt verified by Discern Rule. Performed result [facility] (Unable to Calculate) was sent as an Alpha code due the inability to calculate a valid numeric value. Performed By: #### 2 596626, 8561371, 7229135, 44369219, 5975941, 1704387 #### [facility] [address] [place] [address] Albumin [Mass/Vol] 4.5 g/dL Normal 3.3-5.0 [facility] Comment on above: Performed By: #### 2 856550, 1240920, 7752027, 26675093, 7667643, 2215299 #### [facility] [address] [place] [address] Albumin/Globulin (S) [Mass conc ratio] 1.3 Normal 1.1-2.2 [facility] Comment on above: Performed By: #### 2 581854, 6893701, 9486512, 18319182, 0319497, 8661193 #### [facility] [address] [place] [address] ALP [Catalytic activity/Vol] 42 Int._Unit/L Normal 21-98 [facility] Comment on above: Performed By: #### 2 854996, 9571228, 2244823, 22047117, 2742820, 0636002 #### [facility] [address] [place] [address] ALT No additional P-5'-P [Catalytic activity/Vol] 36 Int._Unit/L Normal 6-46 [facility] Comment on above: Performed By: #### 2 790428, 8537749, 8179021, 83246309, 4159357, 6184175 #### [facility] [address] [place] [address] AST [Catalytic activity/Vol] 26 Int._Unit/L Normal 5-43 [facility] Comment on above: Performed By: #### 2 097505, 5942268, 9850080, 74433903, 6952871, 2265229 #### [facility] [address] [place] [address] Bilirubin [Mass/Vol] 0.6 mg/dL Normal 0.0-1.1 [facility] Comment on above: Performed By: #### 2 736818, 2930655, 6765830, 45550934, 1851295, 6474681 #### [facility] [address] [place] [address] Globulin (S) [Mass/Vol] 3.4 g/dL Normal 1.4-4.0 [facility] Comment on above: Performed By: #### 2 556429, 8633167, 1332835, 05131772, 2655214, 7546421 #### [facility] [address] [place] [address] Protein [Mass/Vol] 7.9 g/dL High 6.0-7.8 [facility] Comment on above: Performed By: #### 2 861661, 3639522, 2400893, 45378384, 7851469, 7668959 #### [facility] [address] [place] [address] Bilirubin.direct [Mass/Vol] mg/dL Normal 0.1-0.4 [facility] Comment on above: Performed By: #### 2 654424, 9313538, 6473622, 97883089, 2561230, 4714460 #### [facility] [address] [place] [id number] Laboratory - Microbiology an d Antimicrobial susceptibilityOrdered By: Sherice Espinosa on 11-22-2022 Bacteria identified Cx Nom (U) 500 cfu/ml Mixed skin contaminants [facility] Lipase Levelon 11-22-2022 Lipase [Catalytic activity/Vol] 28 U/L Normal 13-58 [facility] Comment on above: Performed By: #### 2 851401, 7312834, 7143735, 82732446, 3765642, 6256653 #### [facility] [address] [place] [address] SEROLOGYOrdered By: Mario For ster on 11-22-2022 HCG.beta subunit (U) [Moles/Vol] Negative Normal [facility] Sero U BetaHcg Qualon 11-22-2022 HCG.beta subunit (U) [Moles/Vol] Negative Normal [facility] Comment on above: Performed By: #### 1 2304866, 6949578, 52139371 #### [facility] [address] [place] [address] UA With Cult Reflexon 2022 Bacteria LM Ql (Urine sed) 2+ /HPF Abnormal Trace [facility] Comment on above: Performed By: #### 1 8869813, 5436300, 34796523 #### [facility] [address] [place] [address] Bilirubin Ql (U) Negative Normal Negative [facility] Comment on above: Performed By: #### 1 9848077, 0185833, 52667437 #### [facility] [address] [place] [address] Clarity (U) CLEAR Normal Clear [facility] Comment on above: Performed By: #### 1 0150012, 2776065, 40604205 #### [facility] [address] [place] [address] Color (U) YELLOW Normal Yellow [facility] Comment on above: Performed By: #### 1 3505812, 2499022, 19737626 #### [facility] [address] [place] [address] Epithelial cells.squamous LM.HPF (Urine sed) [#/Area] 5-8 Normal 0-2 [facility] Comment on above: Performed By: #### 1 5788444, 8810986, 34642445 #### [facility] [address] [place] [address] Glucose Test strip (U) [Mass/Vol] Negative Normal Negative [facility] Comment on above: Performed By: #### 1 9816007, 7839170, 90662053 #### [facility] [address] [place] [address] Hemoglobin Ql (U) Negative Normal Negative [facility] Comment on above: Performed By: #### 1 2487752, 7082718, 83184894 #### [facility] [address] [place] [address] Ketones (U) [Mass/Vol] Negative Normal Negative [facility] Comment on above: Performed By: #### 1 1387083, [id number], [id number] #### [facility] [address] [place] [address] Gridley.plasma/Gridley. RBC (Bld) [Mass ratio] 0-3 Normal 0-3 [facility] Comment on above: Performed By: #### 1 [id number], [id number], [id number] #### [facility] [address] [place] [address] Mucus Ql (Urine sed) TRACE Normal [facility] Comment on above: Performed By: #### 1 [id number], [id number], [id number] #### [facility] [address] [place] [address] Nitrite Ql (U) Negative Normal Negative [facility] Comment on above: Performed By: #### 1 [id number], [id number], [id number] #### [facility] [address] [place] [address] pH (U) 6.0 [pH] Invalid Interpretation Code 5.0-9.0 [facility] Comment on above: Performed By: #### 1 [id number], [id number], [id number] #### [facility] [address] [place] [address] Protein (U) [Mass/Vol] Negative Normal Negative [facility] Comment on above: Performed By: #### 1 [id number], [id number], [id number] #### [facility] [address] [place] [address] Specific gravity (U) [Rel density] 1.025 Invalid Interpretation Code 1.005-1.030 [facility] Comment on above: Performed By: #### 1 [id number], [id number], [id number] #### [facility] [address] [place] [address] Type of Urine collection method Clean Catch Normal [facility] Comment on above: Performed By: #### 1 [id number], [id number], [id number] #### [facility] [address] [place] [address] Urobilinogen Qn (U) 0.2 {Elba'U}/dL Normal 0.0-1.0 [facility] Comment on above: Performed By: #### 1 [id number], [id number], [id number] #### [facility] [address] [place] [address] WBC Auto Ql (U) Negative Normal Negative [facility] Comment on above: Performed By: #### 1 [id number], [id number], [id number] #### [facility] [address] [place] [address] WBC LM.HPF (Urine sed) [#/Area] 0-5 Normal 0-5 [facility] Comment on above: Performed By: #### 1 [id number], [id number], [id number] #### [facility] [address] [place] [address] URINALYSISOrdered By: Mario howell on 11-22-2022 Bacteria [...] PM) Normal Negative [facility] UA Auto SS Gridley.plasma/Gridley. RBC (Bld) [Mass ratio] 0-3 /HPF Normal [...] FT UA Auto SS Urobilinogen Qn (U) 0.4276633 {Elba'U}/dL Normal 0.0 - 1.0 EU/dL [facility] UA Auto SS WBC Auto Ql (U) Negative (11/22/22 7:19 PM) Normal Negative [facility] UA Auto SS WBC LM.HPF (Urine sed) [#/Area] 0-5 /HPF Normal 0-5/HPF [facility] UA Auto SS eGFRon 11-22-2022 GFR/1.73 sq M.predicted among non-blacks MDRD (S/P/Bld) [Vol rate/Area] 76 mL/min/1.73 m2 Normal >=59 [facility] Comment on above: Order Comment: Order added by Discern Expert. Result Comment: Director Of Analytical Development fahad kidney disease could be indicated at eGFR's of less than 60 mL/min/1.73m2. Kidney failure is indicated at less than 15 mL/min/1.73m2. Performed By: #### 2 [id number], [id number], [id number], [id number], [id number], [id number] #### [facility] [id number] HEAD WO CONon 08-14-2022 CT HEAD [...] ROC ARNOLD Date: 2022-08-13 22:12 Normal [facility] CBC AUTO DIFFon 08-13-2022 BASO # 0.0 103/ul Normal 0.0-0.1 [facility] Comment on above: Performed By: #### C BC ####[facility] [address] [address]Dr. Douglas Tucker Basophils/100 WBC (Bld) 0.3 % Normal 0.2-2.0 [facility] Comment on above: Performed By: #### C BC ####[facility] [address] [address]DrHernandez Tucker EO # 0.0 103/ul Normal 0.0-0.7 [facility] Comment on above: Performed By: #### C BC ####[facility] [address] [place] [id number] Tucker Eosinophils/100 WBC (Bld) 0.1 % Critically low 0.9-7.0 [facility] Comment on above: Performed By: #### C BC ####[facility] [address] [address]DrHernandez Tucker Erythrocyte distribution width (RBC) [Ratio] 12.3 % Normal 11.0-15.0 [facility] Comment on above: Performed By: #### C BC ####[facility] [address] [place] [address]DrHernandez Tucker Hematocrit (Bld) [Volume fraction] 41.6 % Normal 36.0-48.0 [facility] Comment on above: Performed By: #### C BC ####[facility] [address] [place] [address]DrHernandez Tucker Hemoglobin (Bld) [Mass/Vol] 13.6 g/dL Normal 12.0-16.0 [facility] Comment on above: Performed By: #### C BC ####[facility] [address] [place], [place] [address]DrHernandez Tucker IG # 0.05 10e3/ul Critically high 0.00-0.03 [facility] Comment on above: Performed By: #### C BC ####[facility] [address] [place], [place] [address]DrHernandez Tucker IG % 0.3 % Normal 0.0-0.5 [facility] Comment on above: Performed By: #### C BC ####[facility] [address] [place], [place] [address]DrHernandez Tucker LYMPH # 3.0 103/ul Normal 1.2-3.8 [facility] Comment on above: Performed By: #### C BC ####[facility] [address] [place], [place] [address]DrHernandez Tucker Lymphocytes/100 WBC (Bld) 20.9 % Normal 20.5-60.0 [facility] Comment on above: Performed By: #### C BC ####[facility] [address] [place], [place] [address]DrHernandez Tucker MANUAL DIFF REQ NO Normal [facility] Comment on above: Performed By: #### C BC ####[facility] [address] [place], [place] [address]DrHernandez Tucker MCH (RBC) [Entitic mass] 31.7 pg Normal 26.7-34.0 [facility] Comment on above: Performed By: #### C BC ####[facility] [address] [place] [address]DrHernandez Tucker MCHC (RBC) [Mass/Vol] 32.7 g/dL Normal 29.9-35.2 [facility] Comment on above: Performed By: #### C BC ####[facility] [address] [place], [place] [address]DrHernandez Tucker MCV (RBC) [Entitic vol] 97.0 fL Normal 81.0-99.0 [facility] Comment on above: Performed By: #### C BC ####[facility] [address] [place], [place] [address]DrHernandez Tucker MONO # 1.0 103/ul Critically high 0.3-0.8 [facility] Comment on above: Performed By: #### C BC ####[facility] [address] [place], [place] [address]DrHernandez Tucker Monocytes/100 WBC (Bld) 7.2 % Normal 1.7-12.0 [facility] Comment on above: Performed By: #### C BC ####[facility] [address] [place], [place] [address]DrHernandez Tucker NEUT # 10.2 103/ul Critically high 1.4-6.5 [facility] Comment on above: Performed By: #### C BC ####[facility] [address] [place], [place] [address]DrHernandez uTcker Neutrophils/100 WBC (Bld) 71.2 % Normal 43.0-75.0 [facility] Comment on above: Performed By: #### C BC ####[facility] [address] [place], [place] [address]DrHernandez Tucker Platelet mean volume (Bld) [Entitic vol] 10.6 fL Normal 9.5-13.5 [facility] Comment on above: Performed By: #### C BC ####[facility] [address] [place], [place] [address]DrHernandez Tucker PLT 229 103/ul Normal 150-450 [facility] Comment on above: Performed By: #### C BC ####[facility] [address] [place], [place] [address]ZzHernandez Tucker RBC 4.29 106/ul Normal 4.20-5.40 [facility] Comment on above: Performed By: #### C BC ####[facility] [address] [place], [place] [address]ZiHernandez Tucker WBC 14.4 103/ul Critically high 4.0-11.0 [facility] Comment on above: Performed By: #### C BC ####[facility] [address] [place] [id number]. Douglas Tucker PROF CHEM 8 (BAS METB)on Anion gap [Moles/Vol] 14.6 mmol/L Normal [facility] Comment on above: Performed By: #### T ZAIDA, BMP #### [facility] [address] [address] [address] Douglas Tucker Calcium [Mass/Vol] 9.0 mg/dL Normal 8.5-10.1 [facility] Comment on above: Performed By: #### T ZAIDA, BMP #### [facility] [address] [address] [address] Douglas Tucker Chloride [Moles/Vol] 107 mmol/L Normal 98-107 [facility] Comment on above: Performed By: #### T ZAIDA, BMP #### [facility] [address] [address] [address] Douglas Tucker CO2 [Moles/Vol] 23.2 mmol/L Normal 21.0-32.0 [facility] Comment on above: Performed By: #### T SH, BMP #### [facility] [address] [address] [address] Douglas Tucker Creatinine [Mass/Vol] 0.88 mg/dL Normal 0.55-1.02 [facility] Comment on above: Performed By: #### T SH, BMP #### [facility] [address] [address] [address] Douglas Tucker EGFR-AF LEBANESE >60 Normal >=60 [facility] Comment on above: Performed By: #### T SH, BMP #### [facility] [address] [place] [address] Dr. Douglas Tucker EGFR-NON AF LEBANESE >60 Normal >=60 [facility] Comment on above: Performed By: #### T SH, BMP #### [facility] [address] [place] [address] Dr. Douglas Tucker Glucose [Mass/Vol] 100 mg/dL Normal 74-106 [facility] Comment on above: Performed By: #### T SH, BMP #### [facility] [address] [place] [address] Dr. Douglas Tucker Potassium [Moles/Vol] 3.8 mmol/L Normal 3.5-5.1 [facility] Comment on above: Performed By: #### T SH, BMP #### [facility] [address] [place] [address] Dr. Douglas Tucker Sodium [Moles/Vol] 141 mmol/L Normal 136-145 [facility] Comment on above: Performed By: #### T SH, BMP #### [facility] [address] [place] [address] Dr. Douglas Tucker Urea nitrogen [Mass/Vol] 10.0 mg/dL Normal 7.0-18.0 [facility] Comment on above: Performed By: #### T SH, BMP #### [facility] [address] [place] [address] Dr. Douglas Tucker Urea nitrogen/Creatinine [Mass ratio] 11.4 mg/mg Normal [facility] Comment on above: Performed By: #### T SH, BMP #### [facility] [address] [place] [address] Dr. Douglas Tucker TSHon 08-13-2022 TSH 0.730 uIU/mL Normal 0.358-3.740 [facility] Comment on above: Performed By: #### T SH, BMP #### [facility] [address] [place] [address] Dr. Douglas Tucker Automated erythrocytes count in urine sediment (number/area)Ordered By: Mario Perezgles on 06-14-2022 RBC Auto (Urine sed) [#/Area] None seen [HPF] 0-4 [facility] Automated leukocytes count i n urine sediment (number/area)Ordered By: Mario Perezgles on 06-14-2022 WBC Auto (Urine sed) [#/Area] 20-49 [HPF] 0-4 [facility] Bilirubin Test strip Ql (U)O rdered By: Mario Pee on 06-14-2022 Bilirubin Ql (U) Negative Negative [facility] Color Auto (U)Ordered By: Pee on 06-14-2022 Color (U) Yellow Yellow [facility] Dipstick and Microscopicon 0 06-14-2022 Appearance (U) Cloudy Critically abnormal Clear [facility] Comment on above: Order Comment: Reaso n for Exam Urinary frequency Name Collection Type:: Voided Performed By: #### P T, CBC, CMP, PTT #### [facility] [address] [id number] [place] Bacteria,Urine 2+ High None Seen [facility] Comment on above: Order Comment: Reaso n for Exam Urinary frequency Name Collection Type:: Voided Performed By: #### P T, CBC, CMP, PTT #### [facility] [address] [place] [address] [place] Bilirubin,Urine Negative Normal Negative [facility] Comment on above: Order Comment: Reaso n for Exam Urinary frequency Name Collection Type:: Voided Performed By: #### P T, CBC, CMP, PTT #### [facility] [address] [place] [address] [place] Color (U) Yellow Normal Yellow [facility] Comment on above: Order Comment: Reaso n for Exam Urinary frequency Name Collection Type:: Voided Performed By: #### P T, CBC, CMP, PTT #### [facility] [address] [id number] [place] Glucose Ql (U) Normal Normal Normal [facility] Comment on above: Order Comment: Reaso n for Exam Urinary frequency Name Collection Type:: Voided Performed By: #### P T, CBC, CMP, PTT #### [facility] [address] [place] [address] [place] Hyaline Casts,Urine 0-8 Normal 0-8 [facility] Comment on above: Order Comment: Reaso n for Exam Urinary frequency Name Collection Type:: Voided Result Comment: PERF ORMED BY: [place] [address] PATHOLOGIST INDEP[employer]ENT [employer] CONSULTANT LEV HERNÁNDEZ M.D. Performed By: #### P T, CBC, CMP, PTT #### [facility] [address] [place] [address] Ketones Ql (U) Negative Normal Negative [facility] Comment on above: Order Comment: Reaso n for Exam Urinary frequency Name Collection Type:: Voided Performed By: #### P T, CBC, CMP, PTT #### [address] Leukocyte esterase Test strip Ql (U) 3+ High Negative [facility] Comment on above: Order Comment: Reaso n for Exam Urinary frequency Name Collection Type:: Voided Performed By: #### P T, CBC, CMP, PTT #### [facility] [address] [place] [address] [place] Nitrite,Urine Negative Normal Negative [facility] Comment on above: Order Comment: Reaso n for Exam Urinary frequency Name Collection Type:: Voided Performed By: #### P T, CBC, CMP, PTT #### [facility] [address] [place] [address] [place] Occult Blood,Urine Negative Normal Negative [facility] Comment on above: Order Comment: Reaso n for Exam Urinary frequency Name Collection Type:: Voided Result Comment: PERF ORMED BY: [place] [address] PATHOLOGIST INDEPENDENT [employer]AUTY CONSULTANT LEV HERNÁNDEZ M.D. Performed By: #### P T, CBC, CMP, PTT #### [facility] [address] [place] [address] [place] pH (U) 5.5 [pH] Normal 5.0-9.0 [facility] Comment on above: Order Comment: Reaso n for Exam Urinary frequency Name Collection Type:: Voided Performed By: #### P T, CBC, CMP, PTT #### [facility] [address] [place] [address] Protein,Urine Negative Normal Negative [facility] Comment on above: Order Comment: Reaso n for Exam Urinary frequency Name Collection Type:: Voided Performed By: #### P T, CBC, CMP, PTT #### [address] RBC,Urine None Seen Normal 0-4 [facility] Comment on above: Order Comment: Reaso n for Exam Urinary frequency Name Collection Type:: Voided Performed By: #### P T, CBC, CMP, PTT #### [address] Specificy Jennings,Urine 1.013 Normal 1.001-1.030 [facility] Comment on above: Order Comment: Reaso n for Exam Urinary frequency Name Collection Type:: Voided Performed By: #### P T, CBC, CMP, PTT #### [facility] [address] [place] [address] Squamous Epithelial Cell,Urine 5-9 High 0-2 [facility] Comment on above: Order Comment: Reaso n for Exam Urinary frequency Name Collection Type:: Voided Performed By: #### P T, CBC, CMP, PTT #### [facility] [address] [place] [address] Urobilinogen,Urine Normal Normal Normal [facility] Comment on above: Order Comment: Reaso n for Exam Urinary frequency Name Collection Type:: Voided Performed By: #### P T, CBC, CMP, PTT #### [facility] [address] [place] [address] [place] WBC,Urine 20-49 High 0-4 [facility] Comment on above: Order Comment: Reaso n for Exam Urinary frequency Name Collection Type:: Voided Performed By: #### P T, CBC, CMP, PTT #### [facility] [address] [place] [address] Ketones Auto test strip (U) [Mass/Vol]Ordered By: Mario Glasgow on 06-14-2022 Ketones (U) [Mass/Vol] Negative Negative [facility] - UrinalysisOrder ed By: Mario Glasgow on 06-14-2022 Hyaline casts LM Ql (Urine sed) 0-8 [LPF] 0-8 [facility] Nitrite Test strip Ql (U)Ord ered By: Mario Glasgow on 06-14-2022 Nitrite Ql (U) Negative Negative [facility] Protein Auto test strip (U) [Mass/Vol]Ordered By: Mario Glasgow on 06-14-2022 Protein (U) [Mass/Vol] Negative Negative [facility] Specific gravity Auto test s trip (U) [Rel density]Ordered By: Mario Glasgow on 06-14-2022 Specific gravity (U) [Rel density] 1.013 1.001-1.030 [facility] Squamous epithelial cells de tection in urine sediment by light microscopyOrdered By: Mario Glasgow on 06-14-2022 Epithelial cells.squamous LM Ql (Urine sed) 5-9 [HPF] 0-2 [facility] Urine Cultureon 06-14-2022 Bacteria identified Cx Nom (U) Reason for Exam Urinary frequency Urine ORGANISM: Strep. agalactiae Grp B (O:B) [place] Count <10,000 PERFORMED BY: [place] [address] PATHOLOGIST INDEP[employer]ENT [employer]AUTY CONSULTANT LEV HERNÁNDEZ M.D. Normal [facility] Comment on above: Performed By: #### P T, CBC, CMP, PTT #### [facility] [address] [place] [address] Urine bacteria detection by automated methodOrdered By: Mario Glasgow on 06-14-2022 Bacteria Auto Ql (U) 2+ None Seen [facility] Urine clarity by refractomet ry automatedOrdered By: Mario Glasgow on 06-14-2022 Clarity Refractometry automated (U) Cloudy Clear [facility] Urine culture routineOrdered By: Mario Glasgow on 06-14-2022 Bacteria identified Cx Nom (U) Strep. agalactiae Grp B [facility] Urine glucose measurement by automated test strip (mass/volume)Ordered By: Mario Glasgow on 06-14-2022 Glucose Auto test strip (U) [Mass/Vol] Normal mg/dL Normal [facility] Urine hemoglobin detection b y automated test stripOrdered By: Mario Glasgow on 06-14-2022 Hemoglobin Auto test strip Ql (U) Negative Negative [facility] Urine leukocyte esterase det ection by automated test stripOrdered By: Mario Glasgow on 06-14-2022 Leukocyte esterase Auto test strip Ql (U) 3+ Negative [facility] Urobilinogen Auto test strip (U) [Mass/Vol]Ordered By: Mario Glasgow on 06-14-2022 Urobilinogen (U) [Mass/Vol] Normal mg/dL Normal [facility] pH Auto test strip (U)Ordere d By: Mario Glasgow on 06-14-2022 pH (U) 5.5 [pH] 5.0-9.0 [facility] HCG ( test) IA.rapi d Ql (U)Ordered By: Figueroa Galindo on 05-02-2022 HCG ( test) Ql (U) Negative [facility] HCG,Urineon 05-02-2022 Beta HCG ( test) Ql (U) Negative Normal [facility] Comment on above: Result Comment: PERF ORMED BY: [place] [address] PATHOLOGIST INDEPENDENT BEAUTY CONSULTANT LEV HERNÁNDEZ M.D. Performed By: #### P T, CBC, CMP, PTT #### [facility] [address] [place] [address] Mitchel 05-02-2022 L ----- Specimen: [id number] Received: 05/02/22 Status: ALEJANDRA Travis Num: [id number] Spec Type: Surgical Subm Dr: Rell Garcia DO Tissues: A Uterus w/ or w/o tubes ovaries except neoplastic or prolap (UTERUS/CERVIX) Procedures: HE/4, Gross/Micro L5 Age/ Patient Sex Location Account Attending Physician Sully Enriquez 32/F [place] [id number] Rell Garcia DO SPEC NUM: [id number] RECD: 05/02/22 STATUS: ALEJANDRA TRAVIS NUM: [id number] MEGAN: 05/02/22 [facility] DR: Rell Garcia DO ENTERED: 05/02/22 SABRINA [...] in thickness. No myometrial lesions are identified. Bark Peeler sections are submitted in 4 cassettes as follows: A1 - Anterior cervix A2 - Posterior cervix A3 - Anterior endomyometrium A4 - Posterior endomyometrium Specimen: [id number] Received: 05/02/22 Status: ALEJANDRA Travis Num: [id number] Spec Type: Surgical Subm Dr: Rell Garcia DO Tissues: A Uterus w/ or w/o tubes ovaries except neoplastic or prolap (UTERUS/CERVIX) Procedures: HE/4, Gross/Micro L5 Patient: Sully Enriquez [id number] (Continued) Specimen: [id number] Received: 05/02/22 (Continued) Signed (signature on file) Tristan Vázquez MD 05/03/22 1036 Specimen: [id number] Received: 05/02/22 Status: ALEJANDRA Travis Num: [id number] Spec Type: Surgical Subm Dr: Rell Garcia DO Tissues: A Uterus w/ or w/o tubes ovaries except neoplastic or prolap (UTERUS/CERVIX) Procedures: HE/4, Gross/Micro L5 Patient: Sully Enriquez [id number] (Continued) Specimen: [id number] Received: 05/02/22 (Continued) Microscopic Description Four glass slides with H E stained material have been examined. The microscopic findings support the above pathologic diagnosis. CPT Codes 37313 Specimen: [id number] Received: 05/02/22 Status: ALEJANDRA Travis Num: [id number] Spec Type: Surgical Subm Dr: Rell Garcia DO Tissues: A Uterus w/ or w/o tubes ovaries except neoplastic or prolap (UTERUS/CERVIX) Procedures: Gucci GOODSON/Andre L5 Patient: Sully Enriquez [id number] (Continued) Signed (signature on file) Tristan Vázquez MD 05/03/22 1036 [facility] Type and Screenon 05-02-2022 ABO and Rh group Nom (Bld) Blood group B Rh(D) positive Normal [facility] Comment on above: Result Comment: PERF ORMED BY: [facility] [place] [address] PATHOLOGIST INDEPENDENT BEAUTY CONSULTANT LEV HERNÁNDEZ M.D. CULTURE URINEon 04-25-2022 CULTURE URINE Culture Observations : MODERATE GROWTH OF MIXED GENITAL CRICKET. NO POTENTIAL PATHOGENS SEEN. Normal [facility] Comment on above: Performed By: #### U RCX ####[facility] [address] [address]Dr. Douglas Tucker ER URINE PROFILEon 3 Bilirubin Ql (U) Negative Normal NEGATIVE [facility] Comment on above: Performed By: #### P REGUCHERYLICRO, ERUR #### [facility] [address] [address] [address] Douglas Tucker Clarity (U) SL CLOUDY Abnormal CLEAR [facility] Comment on above: Performed By: #### P REGU UMICRO, ERUR #### [facility] [address] [address] [address] Douglas Tucker Color (U) YELLOW Normal YELLOW [facility] Comment on above: Performed By: #### P REGU UMICRO, ERUR #### [facility] [address] [address] [address] Douglas Tucker ERUAHD A micrscopic examina tion will be performed if indicated. Normal [facility] Comment on above: Performed By: #### P REGU, UMICRO, ERUR #### [facility] [address] [address] [address] Douglas Tucker Glucose Ql (U) Negative Normal NEGATIVE [facility] Comment on above: Performed By: #### P REGU, UMICRO, ERUR #### [facility] [address] [address] [address] Douglas Tucker Hemoglobin Ql (U) SMALL Abnormal NEGATIVE [facility] Comment on above: Performed By: #### P REGU UMICRO, ERUR #### [facility] [address] [address] [address] Douglas Tucker Ketones Ql (U) Negative Normal NEGATIVE [facility] Comment on above: Performed By: #### P BLAINE GOODWIN, ERUR #### [facility] [address] [address] [address] Douglas Tucker LEUKOCYTES Negative Normal NEGATIVE [facility] Comment on above: Performed By: #### P BLAINE GOODWIN, ERUR #### [facility] [address] [address] [address] Douglas Tucker Nitrite Ql (U) Negative Normal NEGATIVE [facility] Comment on above: Performed By: #### P BLAINE GOODWIN, ERUR #### [facility] [address] [place] [address] Dr. Douglas Tucker pH (U) 6.0 [pH] Normal 5-9 [facility] Comment on above: Performed By: #### P BLAINE GOODWIN, ERUR #### [facility] [address] [address] [address] Douglas Tucker SPEC GRAVITY >=1.030 Abnormal 1.005-<=1.0 25 [facility] Comment on above: Performed By: #### BLAINE MALAVE, ERUR #### [facility] [address] [address] [address] Douglas Tucker UA PROTEIN TRACE Normal NEGATIVE/ TRACE [facility] Comment on above: Performed By: #### P BLAINE GOODWIN, ERUR #### [facility] [address] [address] [address] Douglas Tucker UR MICRO IND INDICATED Normal [facility] Comment on above: Performed By: #### P BLAINE GOODWIN, ERUR #### [facility] [address] [place] [address] Dr. Douglas Tucker Urobilinogen Qn (U) 0.2 {Elba'U}/dL Normal 0.2 - 1. 0 [facility] Comment on above: Performed By: #### P BLAINE GOODWIN, ERUR #### [facility] [address] [address] [address] Douglas Tucker URon 04-25-2022 , QUAL Negative Normal NEGATIVE [facility] Comment on above: Performed By: #### P REGU, UMICRO, ERUR #### [facility] [address] [address] [address] Douglas Tucker URINE MICROSCOPIC ONLYon BACTERIA MODERATE Abnormal NONE SEEN [facility] Comment on above: Performed By: #### P REGU, UMICRO, ERUR #### [facility] [address] [address] [address] Douglas Tucker Bacteria identified Cx Nom (U) INDICATED Normal [facility] Comment on above: Performed By: #### P REGU, UMICRO, ERUR #### [facility] [address] [place] [address] Dr. Douglas Tucker CAST NONE SEEN Normal NONE SEEN [facility] Comment on above: Performed By: #### P REGU, UMICRO, ERUR #### [facility] [address] [address] [address] Douglas Tucker Crystals LM Nom (Urine sed) NONE SEEN Normal NONE SEEN [facility] Comment on above: Performed By: #### P REGU, UMICRO, ERUR #### [facility] [address] [place] [address] Dr. Douglas Tucker Epithelial cells LM Ql (Urine sed) MODERATE Abnormal NONE SEEN /RARE [facility] Comment on above: Performed By: #### P REGU, UMICRO, ERUR #### [facility] [address] [address] [address] Douglas Tucker MUCOUS NONE SEEN Normal NONE SEEN [facility] Comment on above: Performed By: #### P REGU, UMICRO, ERUR #### [facility] [address] [place] [address] Dr. Douglas Tucker RBC 2-5 Abnormal 0-2 [facility] Comment on above: Performed By: #### P REGU, UMICRO, ERUR #### [facility] [address] [place], [place] [address] Dr. Douglas Tucker WBC 0-2 Abnormal NONE SEEN [facility] Comment on above: Performed By: #### P BLAINE GOODWIN ERUR #### [facility] [address] [place], [place] [address] Dr. Douglas Tucker COVID-19 Antigenon 3 COVID-19 [...] developed and its performance characteristic determined by [employer] and validated at [facility]. This test has not been FDA cleared [...] for SARS Antigen by LILLY PERFORMED BY: [address] [place] [address] PATHOLOGIST INDEPENDENT BEAUTY CONSULTANT LEV HERNÁNDEZ M.D. [facility] Comment on above: Performed By: #### C OVID-19 KEVIN, SOFIANEG #### [facility] [address] [place] [address] [place] COVID-19 SOFIAOrdered By: Aadl Garcia on 04-23-2022 SARS-CoV+SARS-CoV-2 (COVID-19) Ag IA.rapid Ql (Resp) Negative Negative [facility] Comment on above: This is a duplicate Kevin SARS Antigen (LILLY) result to be used for statistical tracking purpose only. No Panel InformationOrdered By: Rell Garcia on 04-23-2022 SARS Antigen (LFIA) [facility] Kevin Ag Negativeon 04-23-19 23 Kevin Ag Negative Negative Normal Negative [facility] Comment on above: Result Comment: This is a duplicate Kevin SARS Antigen (LILLY) result to be used for statistical tracking purpose only. PERFORMED BY: [place] [address] PATHOLOGIST INDEPENDENT BEAUTY CONSULTANT LEV HERNÁNDEZ M.D. Performed By: #### P T, CBC, CMP, PTT #### [facility] [address] Activated partial thrombopla stin time (aPTT) in platelet poor plasma by coagulation aOrdered By: Rell Garcia on 04-10-2022 aPTT Coag (PPP) [Time] 31.6 s 25.1-36.5 [facility] Albumin [Mass/volume] in Ser um or PlasmaOrdered By: Rell Garcia on 04-10-2022 Albumin [Mass/Vol] 4.4 g/dL 3.2-5.5 [facility] Automated erythrocytes count in urine sediment (number/area)Ordered By: Rell Garcia on 04-10-2022 RBC Auto (Urine sed) [#/Area] None seen [HPF] 0-4 [facility] Automated leukocytes count i n urine sediment (number/area)Ordered By: Rell Garcia on 04-10-2022 WBC Auto (Urine sed) [#/Area] 20-49 [HPF] 0-4 [facility] Automated urine hyaline cast s count (number/volume)Ordered By: Rell Garcia on 04-10-2022 Hyaline casts Auto (U) [#/Vol] None seen [LPF] 0-1 [facility] Basophils Auto (Bld) [#/Vol] Ordered By: Rell Garcia on 04-10-2022 Basophils (Bld) [#/Vol] 0.0 10*3/uL 0.0-0.2 [facility] Basophils/100 WBC Auto (Bld) Ordered By: Rell Garcia on 04-10-2022 Basophils/100 WBC (Bld) 0.4 % . F [facility] Bilirubin Test strip Ql (U)O rdered By: Rell Garcia on 04-10-2022 Bilirubin Ql (U) Negative Negative [facility] Casts typing in urine sedime nt by light microscopyOrdered By: Rell Garcia on 04-10-2022 Casts LM Nom (Urine sed) None seen [LPF] None Seen [facility] Color Auto (U)Ordered By: Adal Garcia on 04-10-2022 Color (U) Yellow Yellow [facility] Complete Blood Count Auto Di ffon 04-10-2022 Basophils (Bld) [#/Vol] 0.0 10*3/uL Normal 0.0-0.2 [facility] Comment on above: Result Comment: PERF ORMED BY: [place] [address] PATHOLOGIST INDEPENDENT BEAUTY CONSULTANT LEV HERNÁNDEZ M.D. Performed By: #### P T, CBC, CMP, PTT #### [facility] [address] [place] [address] Basophils/100 WBC (Bld) 0.4 % Normal . F [facility] Comment on above: Performed By: #### P T, CBC, CMP, PTT #### [facility] [address] [place] [address] [place] Eosinophils (Bld) [#/Vol] 0.3 10*3/uL Normal 0.0-0.45 [facility] Comment on above: Performed By: #### P T, CBC, CMP, PTT #### [place] [id number] [place] Eosinophils/100 WBC (Bld) 3.6 % Normal . [facility] Comment on above: Performed By: #### P T, CBC, CMP, PTT #### [address] Erythrocyte distribution width (RBC) [Ratio] 13.0 % Normal 11.9-15.3 [facility] Comment on above: Performed By: #### P T, CBC, CMP, PTT #### [address] Hematocrit (Bld) [Volume fraction] 44.2 % Normal 34.0-46.4 [facility] Comment on above: Performed By: #### P T, CBC, CMP, PTT #### [address] Hemoglobin (Bld) [Mass/Vol] 14.8 g/dL Normal 11.8-15.4 [facility] Comment on above: Performed By: #### P T, CBC, CMP, PTT #### [address] Lymphocytes (Bld) [#/Vol] 3.0 10*3/uL Normal 1.00-4.8 [facility] Comment on above: Performed By: #### P T, CBC, CMP, PTT #### [address] Lymphocytes/100 WBC (Bld) 35.3 % Normal . [facility] Comment on above: Performed By: #### P T, CBC, CMP, PTT #### [address] MCH (RBC) [Entitic mass] 31.8 pg Normal 24.7-34.3 [facility] Comment on above: Performed By: #### P T, CBC, CMP, PTT #### [address] MCV (RBC) [Entitic vol] 95.0 fL Normal 80-100 F [facility] Comment on above: Performed By: #### P T, CBC, CMP, PTT #### [facility] [address] Mean Corpuscular HGB Conc 33.5 g/dL Normal 32.0-35.0 [facility] Comment on above: Performed By: #### P T, CBC, CMP, PTT #### [facility] [address] Monocytes (Bld) [#/Vol] 0.6 10*3/uL Normal 0.0-0.8 [facility] Comment on above: Performed By: #### P T, CBC, CMP, PTT #### [facility] [address] [place] [address] Monocytes/100 WBC (Bld) 7.0 % Normal . [facility] Comment on above: Performed By: #### P T, CBC, CMP, PTT #### [address] Neutrophils (Bld) [#/Vol] 4.6 10*3/uL Normal 1.8-7.7 [facility] Comment on above: Performed By: #### P T, CBC, CMP, PTT #### [address] Neutrophils/100 WBC (Bld) 53.7 % Normal . [facility] Comment on above: Performed By: #### P T, CBC, CMP, PTT #### [address] NRBC% 0.1 /100{WBC} Normal 0-0.5 [facility] Comment on above: Performed By: #### P T, CBC, CMP, PTT #### [facility] [address] [place] [address] Platelet mean volume (Bld) [Entitic vol] 9.1 fL Normal 6.3-10.7 [facility] Comment on above: Performed By: #### P T, CBC, CMP, PTT #### [facility] [address] [place] [address] [place] Platelets (Bld) [#/Vol] 192 10*3/uL Normal 150-450 [facility] Comment on above: Performed By: #### P T, CBC, CMP, PTT #### [facility] [address] [place] [address] RBC (Bld) [#/Vol] 4.65 10*6/uL Normal 3.60-5.00 [facility] Comment on above: Performed By: #### P T, CBC, CMP, PTT #### [address] WBC (Bld) [#/Vol] 8.6 10*3/uL Normal 3.8-11.6 [facility] Comment on above: Performed By: #### P T, CBC, CMP, PTT #### [address] Comprehensive Metabolic Pane mitchel 04-10-2022 Albumin [Mass/Vol] 4.4 g/dL Normal 3.2-5.5 [facility] Comment on above: Performed By: #### P T, CBC, CMP, PTT #### [address] Albumin/Globulin [Mass ratio] 1.4 {ratio} Normal [facility] Comment on above: Performed By: #### P T, CBC, CMP, PTT #### [address] ALP [Catalytic activity/Vol] 47 U/L Normal 32-92 [facility] Comment on above: Result Comment: PERF ORMED BY: [place] [address] PATHOLOGIST INDEPENDENT BEAUTY CONSULTANT LEV HERNÁNDEZ M.D. Performed By: #### P T, CBC, CMP, PTT #### [address] ALT [Catalytic activity/Vol] 19 U/L Normal 10-60 [facility] Comment on above: Performed By: #### P T, CBC, CMP, PTT #### [address] Anion gap [Moles/Vol] 13.2 mmol/L Normal 6.0-15.0 [facility] Comment on above: Performed By: #### P T, CBC, CMP, PTT #### [facility] [address] AST [Catalytic activity/Vol] 18 U/L Normal 10-42 [facility] Comment on above: Performed By: #### P T, CBC, CMP, PTT #### [facility] [address] Bilirubin [Mass/Vol] 0.7 mg/dL Normal 0.3-1.2 [facility] Comment on above: Performed By: #### P T, CBC, CMP, PTT #### [address] Calcium [Mass/Vol] 9.5 mg/dL Normal 8.2-10.2 [facility] Comment on above: Performed By: #### P T, CBC, CMP, PTT #### [facility] [address] [place] [address] Chloride [Moles/Vol] 106 mmol/L Normal 95-114 [facility] Comment on above: Performed By: #### P T, CBC, CMP, PTT #### [address] CO2 [Moles/Vol] 18.9 mmol/L Low 22.0-30.0 [facility] Comment on above: Performed By: #### P T, CBC, CMP, PTT #### [facility] [address] [place] [address] [place] Creatinine [Mass/Vol] 0.80 mg/dL Normal 0.44-1.03 [facility] Comment on above: Performed By: #### P T, CBC, CMP, PTT #### [place] [address] [place] Estimated GFR ( Margi > 60 Normal [facility] Comment on above: Result Comment: GFR estimated reference range: According to KDOQI guidelines, <60 ml/min/1.73m2 is sufficient to diagnose a patient with chronic kidney disease. Performed By: #### P T, CBC, CMP, PTT #### [facility] [address] Estimated GFR (Non- Am > 60 Normal [facility] Comment on above: Performed By: #### P T, CBC, CMP, PTT #### [facility] [address] Globulin (S) [Mass/Vol] 3.1 g/dL Normal F [facility] Comment on above: Performed By: #### P T, CBC, CMP, PTT #### [address] Glucose [Mass/Vol] 88 mg/dL Normal 70-100 [facility] Comment on above: Result Comment: [facility] Glucose Reference Range is dependent on time and content of last meal. Glucose of more than 200 mg/dL in a nonstressed, ambulatory subject supports the diagnosis of Diabetes Mellitus. ADA recommended reference range Performed By: #### P T, CBC, CMP, PTT #### [facility] [address] Potassium [Moles/Vol] 4.1 mmol/L Normal 3.5-5.1 [facility] Comment on above: Performed By: #### P T, CBC, CMP, PTT #### [facility] [address] Protein [Mass/Vol] 7.5 g/dL Normal 6.1-7.9 [facility] Comment on above: Performed By: #### P T, CBC, CMP, PTT #### [facility] [address] Sodium [Moles/Vol] 134 mmol/L Low 136-146 [facility] Comment on above: Performed By: #### P T, CBC, CMP, PTT #### [facility] [address] Urea nitrogen [Mass/Vol] 14 mg/dL Normal 9-23 [facility] Comment on above: Performed By: #### P T, CBC, CMP, PTT #### [facility] [address] [place] [address] [place] Creatinine and Glomerular fi ltration rate.predicted panel (S/P/Bld)Ordered By: Rell Garcia on 04-10-2022 Creatinine [Mass/Vol] 0.80 mg/dL 0.44-1.03 [facility] Dipstick and Microscopicon 1 06-11-2021 Appearance (U) Cloudy Critically abnormal Clear [facility] Comment on above: Order Comment: Name Collection Type:: Clean-Voided Midstream Performed By: #### C UU, ADDONUAPLUS #### [facility] [address] [place] [address] [place] Bacteria,Urine 2+ High None Seen [facility] Comment on above: Order Comment: Name Collection Type:: Clean-Voided Midstream Performed By: #### C UU, ADDONUAPLUS #### [facility] [address] [place] [address] [place] Bilirubin,Urine Negative Normal Negative [facility] Comment on above: Order Comment: Name Collection Type:: Clean-Voided Midstream Performed By: #### C UU, ADDONUAPLUS #### [facility] [address] [place] [address] [place] Color (U) Yellow Normal Yellow [facility] Comment on above: Order Comment: Name Collection Type:: Clean-Voided Midstream Performed By: #### C UU, ADDONUAPLUS #### [facility] [address] [place] [address] [place] Glucose Ql (U) Normal Normal Normal [facility] Comment on above: Order Comment: Name Collection Type:: Clean-Voided Midstream Performed By: #### C UU, ADDONUAPLUS #### [facility] [address] [place] [address] [place] Hyaline Casts,Urine None Seen Normal 0-1 [facility] Comment on above: Order Comment: Name Collection Type:: Clean-Voided Midstream Performed By: #### C UU, ADDONUAPLUS #### [facility] [address] [place] [address] [place] Ketones Ql (U) Negative Normal Negative [facility] Comment on above: Order Comment: Name Collection Type:: Clean-Voided Midstream Performed By: #### C UU, ADDONUAPLUS #### [address] Leukocyte esterase Test strip Ql (U) 3+ High Negative [facility] Comment on above: Order Comment: Name Collection Type:: Clean-Voided Midstream Performed By: #### C UU, ADDONUAPLUS #### [address] Nitrite,Urine Negative Normal Negative [facility] Comment on above: Order Comment: Name Collection Type:: Clean-Voided Midstream Performed By: #### C UU, ADDONUAPLUS #### [address] Occult Blood,Urine Negative Normal Negative [facility] Comment on above: Order Comment: Name Collection Type:: Clean-Voided Midstream Result Comment: PERF ORMED BY: [place] [address] PATHOLOGIST INDEPENDENT BEAUTY CONSULTANT LEV HERNÁNDEZ M.D. Performed By: #### C UU, ADDONUAPLUS #### [address] Other Casts,Urine None Seen Normal None Seen [facility] Comment on above: Order Comment: Name Collection Type:: Clean-Voided Midstream Result Comment: PERF ORMED BY: [place] [address] PATHOLOGIST INDEPENDENT BEAUTY CONSULTANT LEV HERNÁNDEZ M.D. Performed By: #### C UU, ADDONUAPLUS #### [address] pH (U) 5.5 [pH] Normal 5.0-9.0 [facility] Comment on above: Order Comment: Name Collection Type:: Clean-Voided Midstream Performed By: #### C UU, ADDONUAPLUS #### [address] Protein,Urine Negative Normal Negative [facility] Comment on above: Order Comment: Name Collection Type:: Clean-Voided Midstream Performed By: #### C UU, ADDONUAPLUS #### [facility] [address] [place] [address] RBC,Urine None Seen Normal 0-4 [facility] Comment on above: Order Comment: Name Collection Type:: Clean-Voided Midstream Performed By: #### C UU, ADDONUAPLUS #### [address] Specificy Jennings,Urine 1.016 Normal 1.001-1.030 [facility] Comment on above: Order Comment: Name Collection Type:: Clean-Voided Midstream Performed By: #### C UU, ADDONUAPLUS #### [address] Squamous Epithelial Cell,Urine 10-19 High 0-2 [facility] Comment on above: Order Comment: Name Collection Type:: Clean-Voided Midstream Performed By: #### C UU, ADDONUAPLUS #### [facility] [address] [place] [address] Urobilinogen,Urine Normal Normal Normal [facility] Comment on above: Order Comment: Name Collection Type:: Clean-Voided Midstream Performed By: #### C UU, ADDONUAPLUS #### [facility] [address] [place] [address] WBC,Urine 20-49 High 0-4 [facility] Comment on above: Order Comment: Name Collection Type:: Clean-Voided Midstream Performed By: #### C UU, ADDONUAPLUS #### [facility] [address] [place] [address] [place] Eosinophils Auto (Bld) [#/Vo l]Ordered By: Rell Garcia on 04-10-2022 Eosinophils (Bld) [#/Vol] 0.3 10*3/uL 0.0-0.45 [facility] Eosinophils/100 WBC Auto (Bl d)Ordered By: Rell Garcia on 04-10-2022 Eosinophils/100 WBC (Bld) 3.6 % . [facility] Erythrocyte distribution wid th Auto (RBC) [Ratio]Ordered By: Rell Garcia on 04-10-2022 Erythrocyte distribution width (RBC) [Ratio] 13.0 % 11.9-15.3 [facility] Estimated glomerular filtrat ion rate (GFR) non- AmericanOrdered By: Rell Garcia on 04-10-2022 GFR/1.73 sq M.predicted among non-blacks MDRD (S/P/Bld) [Vol rate/Area] > 60 mL/Min [facility] Globulin Calc (S) [Mass/Vol] Ordered By: Rell Garcia on 04-10-2022 Globulin (S) [Mass/Vol] 3.1 g/dL F [facility] Hematocrit Auto (Bld) [Volum e fraction]Ordered By: Rell Garcia on 04-10-2022 Hematocrit (Bld) [Volume fraction] 44.2 % 34.0-46.4 [facility] Hemoglobin [Mass/volume] in BloodOrdered By: Rell Garcia on 04-10-2022 Hemoglobin (Bld) [Mass/Vol] 14.8 g/dL 11.8-15.4 [facility] Ketones Auto test strip (U) [Mass/Vol]Ordered By: Rell Garcia on 04-10-2022 Ketones (U) [Mass/Vol] Negative Negative Fi [facility] - CoagulationOrde red By: Rell Garcia on 04-10-2022 PT Coag (PPP) [Time] 10.8 s 9.0-12.9 [facility] Leukocytes [#/volume] correc armaan for nucleated erythrocytes in Blood by Automated counOrdered By: Rell Garcia on 04-10-2022 WBC corrected for nucl RBC Auto (Bld) [#/Vol] 8.6 10*3/uL 3.8-11.6 [facility] Lymphocytes Auto (Bld) [#/Vo l]Ordered By: Rell Garcia on 04-10-2022 Lymphocytes (Bld) [#/Vol] 3.0 10*3/uL 1.00-4.8 [facility] Lymphocytes/100 WBC Auto (Bl d)Ordered By: Rell Garcia on 04-10-2022 Lymphocytes/100 WBC (Bld) 35.3 % . [facility] MCH Auto (RBC) [Entitic mass ]Ordered By: Rell Garcia on 04-10-2022 MCH (RBC) [Entitic mass] 31.8 pg 24.7-34.3 [facility] MCHC Auto (RBC) [Mass/Vol]Or dered By: Rell Garcia on 04-10-2022 MCHC (RBC) [Mass/Vol] 33.5 g/dL 32.0-35.0 [facility] MCV Auto (RBC) [Entitic vol] Ordered By: Rell Garcia on 04-10-2022 MCV (RBC) [Entitic vol] 95.0 fL 80-100 F [facility] Monocytes Auto (Bld) [#/Vol] Ordered By: Rell Garcia on 04-10-2022 Monocytes (Bld) [#/Vol] 0.6 10*3/uL 0.0-0.8 [facility] Monocytes/100 WBC Auto (Bld) Ordered By: Rell Garcia on 04-10-2022 Monocytes/100 WBC (Bld) 7.0 % . F [facility] Neutrophils Auto (Bld) [#/Vo l]Ordered By: Rell Garcia on 04-10-2022 Neutrophils (Bld) [#/Vol] 4.6 10*3/uL 1.8-7.7 [facility] [place] Neutrophils/100 WBC Auto (Bl d)Ordered By: Rell Garcia on 04-10-2022 Neutrophils/100 WBC (Bld) 53.7 % . [facility] [place] Nitrite Test strip Ql (U)Ord ered By: Rell Garcia on 04-10-2022 Nitrite Ql (U) Negative Negative [facility] [place] No Panel InformationOrdered By: Rell Garcia on 04-10-2022 Estimated GFR () > 60 mL/Min [facility] [place] Comment on above: GFR estimated refere nce range: According to KDOQI guidelines, <60 ml/min/1.73m2 is sufficient to diagnose a patient with chronic kidney disease. Pharmacy Creatinine Clearance (Chem N/A [facility] [place] Nucleated erythrocytes [Pres ence] in Blood by Automated countOrdered By: Rell Garcia on 04-10-2022 Nucleated RBC Auto Ql (Bld) 0.1 /100{WBC} 0-0.5 [facility] [place] PST Type and Screenon 2021 ABO and Rh group Nom (Bld) Blood group B Rh(D) positive Normal [facility] [place] Comment on above: Order Comment: Date of Surgery: [id number] Partial Thromboplastin Timeo n 04-10-2022 aPTT Coag (Bld) [Time] 31.6 s Normal 25.1-36.5 [facility] Comment on above: Result Comment: PERF ORMED BY: [place] [address] PATHOLOGIST [employer]ENT [employer]ANT ELV HERNÁNDEZ M.D. Performed By: #### P T, CBC, CMP, PTT #### [address] Platelet mean volume Auto (B ld) [Entitic vol]Ordered By: Rell Garcai on 04-10-2022 Platelet mean volume (Bld) [Entitic vol] 9.1 fL 6.3-10.7 [facility] [place] Platelet poor plasma interna tional normalized ratio (INR) by coagulation assay (relatOrdered By: Rell Garcia on 04-10-2022 INR Coag (PPP) [Relative time] 1.0 {INR} [facility] [place] Comment on above: INR Therapeutic Rang e [...] 04-10-2022 Platelets (Bld) [#/Vol] 192 10*3/uL 150-450 [facility] [place] Protein Auto test strip (U) [Mass/Vol]Ordered By: Rell Garcia on 04-10-2022 Protein (U) [Mass/Vol] Negative Negative [facility] Protein [Mass/volume] in Ser um or PlasmaOrdered By: Rell Garcia on 04-10-2022 Protein [Mass/Vol] 7.5 g/dL 6.1-7.9 [facility] Prothrombin Time INRon 04-10 INR Coag (PPP) [Relative time] 1.0 {INR} Normal [facility] [place] Comment on above: Result Comment: INR Therapeutic [...] #### P T, CBC, CMP, PTT #### [facility] [address] PT Coag (PPP) [Time] 10.8 s Normal 9.0-12.9 [facility] Comment on above: Performed By: #### P T, CBC, CMP, PTT #### [facility] [address] RBC Auto (Bld) [#/Vol]Ordere d By: Rell Garcia on 04-10-2022 RBC (Bld) [#/Vol] 4.65 10*6/uL 3.60-5.00 [facility] Serum or plasma alanine venegas otransferase measurement without P-5'-P (enzymatic activiOrdered By: Rell Garcia on 04-10-2022 ALT No additional P-5'-P [Catalytic activity/Vol] 19 U/L 10-60 [facility] [place] Serum or plasma albumin/glob ulin mass ratioOrdered By: Rell Garcia on 04-10-2022 Albumin/Globulin [Mass ratio] 1.4 {ratio} [facility] [place] Serum or plasma alkaline molina sphatase measurement (enzymatic activity/volume)Ordered By: Rell Garcia on 04-10-2022 ALP [Catalytic activity/Vol] 47 U/L 32-92 [facility] [place] Serum or plasma anion gap de terminationOrdered By: Rell Garcia on 04-10-2022 Anion gap [Moles/Vol] 13.2 mmol/L 6.0-15.0 [facility] Serum or plasma aspartate am inotransferase measurement (enzymatic activity/volume)Ordered By: Rell Garcia on 04-10-2022 AST [Catalytic activity/Vol] 18 U/L 10-42 [facility] [place] Serum or plasma calcium liam urement (mass/volume)Ordered By: Rell Garcia on 04-10-2022 Calcium [Mass/Vol] 9.5 mg/dL 8.2-10.2 [facility] Serum or plasma chloride fransisca surement (moles/volume)Ordered By: Rell Garcia on 04-10-2022 Chloride [Moles/Vol] 106 mmol/L 95-114 [facility] Serum or plasma glucose liam urement (mass/volume)Ordered By: Rell Garcia on 04-10-2022 Glucose [Mass/Vol] 88 mg/dL 70-100 [facility] Comment on above: ADA recommended refe rence rangeRandom Glucose Reference Range is dependent on time and content of last meal. Glucose of more than 200 mg/dL in a nonstressed, ambulatory subject supports the diagnosis of Diabetes Mellitus. Serum or plasma potassium me asurement (moles/volume)Ordered By: Rell Garcia on 04-10-2022 Potassium [Moles/Vol] 4.1 mmol/L 3.5-5.1 [facility] Serum or plasma sodium measu rement (moles/volume)Ordered By: Rell Garcia on 04-10-2022 Sodium [Moles/Vol] 134 mmol/L 136-146 [facility] Serum or plasma total biliru bin measurement (mass/volume)Ordered By: Rell Garcia on 04-10-2022 Bilirubin [Mass/Vol] 0.7 mg/dL 0.3-1.2 [facility] Serum or plasma total carbon dioxide measurement (moles/volume)Ordered By: Rell Garcia on 04-10-2022 CO2 [Moles/Vol] 18.9 mmol/L 22.0-30.0 [facility] Serum or plasma urea nitroge n measurement (mass/volume)Ordered By: Rell Garcia on 04-10-2022 Urea nitrogen [Mass/Vol] 14 mg/dL 9-23 [facility] [place] Specific gravity Auto test s trip (U) [Rel density]Ordered By: Rell Garcia on 04-10-2022 Specific gravity (U) [Rel density] 1.016 1.001-1.030 [facility] [place] Squamous epithelial cells de tection in urine sediment by light microscopyOrdered By: Rell Garcia on 04-10-2022 Epithelial cells.squamous LM Ql (Urine sed) 10-19 [HPF] 0-2 [facility] [place] Urine Cultureon 04-10-2022 Bacteria identified Cx Nom (U) 15,000 colonies/ml mixed bacterial skin contaminants 2 Days PERFORMED BY: [place] [address] PATHOLOGIST IN[employer]ENT [employer] CONSULTANT LEV HERNÁNDEZ M.D. [facility] Comment on above: Performed By: #### C UU, ADDONUAPLUS #### [address] Urine bacteria detection by automated methodOrdered By: Rell Garcia on 04-10-2022 Bacteria Auto Ql (U) 2+ None Seen [facility] Urine clarity by refractomet ry automatedOrdered By: Rell Garcia on 04-10-2022 Clarity Refractometry automated (U) Cloudy Clear [facility] [place] Urine culture routineOrdered By: Rell Garcia on 04-10-2022 Bacteria identified Cx Nom (U) 2 Days [facility] [place] Urine glucose measurement by automated test strip (mass/volume)Ordered By: Rell Garcia on 04-10-2022 Glucose Auto test strip (U) [Mass/Vol] Normal mg/dL Normal [facility] [place] Urine hemoglobin detection b y automated test stripOrdered By: Rell Garcia on 04-10-2022 Hemoglobin Auto test strip Ql (U) Negative Negative [facility] [place] Urine leukocyte esterase det ection by automated test stripOrdered By: Rell Garcia on 04-10-2022 Leukocyte esterase Auto test strip Ql (U) 3+ Negative [facility] [place] Urobilinogen Auto test strip (U) [Mass/Vol]Ordered By: Rell Garcia on 04-10-2022 Urobilinogen (U) [Mass/Vol] Normal mg/dL Normal [facility] [place] WBC Auto (Bld) [#/Vol]Ordere d By: Rell Garcia on 04-10-2022 WBC (Bld) [#/Vol] 8.6 10*3/uL 3.8-11.6 [facility] pH Auto test strip (U)Ordere d By: Rell Garcia on 04-10-2022 pH (U) 5.5 [pH] 5.0-9.0 [facility] [place] XR ANKLE RT MIN 3 VIEWSon XR [...] by: LIZZIE YU Date: 2022-03-28 22:01 Normal [facility] XR SHOULDER LT 2V or >on [...] by: JASS GRISSOM Date: 2022-02-10 21:41 Normal [facility] CBC AUTO DIFFon 01-28-2022 BASO # 0.0 103/ul Normal 0.0-0.1 [facility] Comment on above: Performed By: #### C BC ####[facility] [address] [place] [address]DrHernandez Douglas Tucker Basophils/100 WBC (Bld) 0.7 % Normal 0.2-2.0 [facility] Comment on above: Performed By: #### C BC ####[facility] [address] [place] [id number]. Douglas Tucker EO # 0.1 103/ul Normal 0.0-0.7 [facility] Comment on above: Performed By: #### C BC ####[facility] [address] [place] [address]Dr. Douglas Tucker Eosinophils/100 WBC (Bld) 2.2 % Normal 0.9-7.0 [facility] Comment on above: Performed By: #### C BC ####[facility] [address] [place], [place] [address]Dr. Douglas Tucker Erythrocyte distribution width (RBC) [Ratio] 12.0 % Normal 11.0-15.0 [facility] Comment on above: Performed By: #### C BC ####[facility] [address] [place], [place] [address]Dr. Douglas Tucker Hematocrit (Bld) [Volume fraction] 41.3 % Normal 36.0-48.0 [facility] Comment on above: Performed By: #### C BC ####[facility] [address] [place], [place] [address]Dr. Douglas Tucker Hemoglobin (Bld) [Mass/Vol] 13.7 g/dL Normal 12.0-16.0 [facility] Comment on above: Performed By: #### C BC ####[facility] [address] [place], [place] [address]Dr. Douglas Tucker IG # 0.01 10e3/ul Normal 0.00-0.03 [facility] Comment on above: Performed By: #### C BC ####[facility] [address] [place], [place] [address]Dr. Douglas Tucker IG % 0.2 % Normal 0.0-0.5 [facility] Comment on above: Performed By: #### C BC ####[facility] [address] [place], [place] [address]Dr. Dogulas Tucker LYMPH # 2.1 103/ul Normal 1.2-3.8 [facility] Comment on above: Performed By: #### C BC ####[facility] [address] [place], [place] [address]Dr. Douglas Tucker Lymphocytes/100 WBC (Bld) 38.5 % Normal 20.5-60.0 [facility] Comment on above: Performed By: #### C BC ####[facility] [address] [place] [address]Dr. Douglas Tucker MANUAL DIFF REQ NO Normal [facility] Comment on above: Performed By: #### C BC ####[facility] [address] [place] [address]Dr. Douglas Tucker MCH (RBC) [Entitic mass] 31.9 pg Normal 26.7-34.0 [facility] Comment on above: Performed By: #### C BC ####[facility] [address] [place] [address]Dr. Douglas Tucker MCHC (RBC) [Mass/Vol] 33.2 g/dL Normal 29.9-35.2 [facility] Comment on above: Performed By: #### C BC ####[facility] [address] [place] [address]Dr. Douglas Tucker MCV (RBC) [Entitic vol] 96.0 fL Normal 81.0-99.0 [facility] Comment on above: Performed By: #### C BC ####[facility] [address] [place] [address]Dr. Douglas Tucker MONO # 0.4 103/ul Normal 0.3-0.8 [facility] Comment on above: Performed By: #### C BC ####[facility] [address] [place] [address]Dr. Douglas Tucker Monocytes/100 WBC (Bld) 7.8 % Normal 1.7-12.0 [facility] Comment on above: Performed By: #### C BC ####[facility] [address] [place], [place] [address]Dr. Douglas Tucker NEUT # 2.8 103/ul Normal 1.4-6.5 [facility] Comment on above: Performed By: #### C BC ####[facility] [address] [place], [place] [address]Dr. Douglas Tucker Neutrophils/100 WBC (Bld) 50.6 % Normal 43.0-75.0 [facility] Comment on above: Performed By: #### C BC ####[facility] [address] [place] [address]Dr. Umuana Tucker Platelet mean volume (Bld) [Entitic vol] 10.7 fL Normal 9.5-13.5 [facility] Comment on above: Performed By: #### C BC ####[facility] [address] [place] [address]Dr. Douglas Tucker PLT 189 103/ul Normal 150-450 [facility] Comment on above: Performed By: #### C BC ####[facility] [address] [place] [address]Dr. Douglas Tucker RBC 4.30 106/ul Normal 4.20-5.40 [facility] Comment on above: Performed By: #### C BC ####[facility] [address] [place], [place] [address]Dr. Douglas Tucker WBC 5.5 103/ul Normal 4.0-11.0 [facility] Comment on above: Performed By: #### C BC ####[facility] [address] [place], [place] [address]DrHernandez Tucker CULTURE URINEon 01-28-2022 CULTURE URINE Culture Observations : MODERATE GROWTH OF MIXED GENITAL CRICKET. NO POTENTIAL PATHOGENS SEEN. Normal [facility] Comment on above: Performed By: #### U RCX ####[facility] [address] [place] [address]Dr. Douglas Tucker ER URINE PROFILEon 2 Bilirubin Ql (U) Negative Normal NEGATIVE [facility] Comment on above: Performed By: #### U MICRO, ERUR #### [facility] [address] [place] [address] Dr. Douglas Tucker Clarity (U) CLEAR Normal CLEAR [facility] Comment on above: Performed By: #### U MICRO, ERUR #### [facility] [address] [place] [address] Dr. Douglas Tucker Color (U) LT. YELLOW Normal YELLOW [facility] Comment on above: Performed By: #### U MICRO, ERUR #### [facility] [address] [place] [address] [address] Douglas CAMPOVERDEAHD A micrscopic examina tion will be performed if indicated. Normal [facility] Comment on above: Performed By: #### U MICRO, ERUR #### [facility] [address] [place] [address] [address] Douglas Tucker Glucose Ql (U) Negative Normal NEGATIVE [facility] Comment on above: Performed By: #### U MICRO, ERUR #### [facility] [address] [place] [address] [address] Douglas Tucker Hemoglobin Ql (U) TRACE-INTACT Abnormal NEGATIVE [facility] Comment on above: Performed By: #### U MICRO, ERUR #### [facility] [address] [place] [address] Dr. Douglas Tucker Ketones Ql (U) Negative Normal NEGATIVE [facility] Comment on above: Performed By: #### U MICRO, ERUR #### [facility] [address] [place] [address] Dr. Douglas Tucker LEUKOCYTES TRACE Abnormal NEGATIVE [facility] Comment on above: Performed By: #### U MICRO, ERUR #### [facility] [address] [place] [address] Dr. Douglas Tucker Nitrite Ql (U) Negative Normal NEGATIVE [facility] Comment on above: Performed By: #### U MICRO, ERUR #### [facility] [address] [place] [address] [address] Douglas Tucker pH (U) 6.5 [pH] Normal 5-9 [facility] Comment on above: Performed By: #### U MICRO, ERUR #### [facility] [address] [place] [address] Dr. Douglas Tucker SPEC GRAVITY 1.020 Normal 1.005-<=1.0 25 [facility] Comment on above: Performed By: #### U MICRO, ERUR #### [facility] [address] [place] [address] Dr. Douglas Tucker UA PROTEIN Negative Normal NEGATIVE/ TRACE [facility] Comment on above: Performed By: #### U MICRO, ERUR #### [facility] [address] [place] [address] [address] Douglas Tucker UR MICRO IND INDICATED Normal [facility] Comment on above: Performed By: #### U MICRO, ERUR #### [facility] [address] [place] [address] [address] Douglas Tucker Urobilinogen Qn (U) 0.2 {Elba'U}/dL Normal 0.2 - 1. 0 [facility] Comment on above: Performed By: #### U MICRO, ERUR #### [facility] [address] [place] [address] [address] Douglas Tucker PROF 14(COMP METB)on 022 Albumin [Mass/Vol] 3.9 g/dL Normal 3.4-5.0 [facility] Comment on above: Performed By: #### C MP ####[facility] [address] [place] [address]DrHernandez Tucker Albumin/Globulin [Mass ratio] 1.1 {ratio} Normal [facility] Comment on above: Performed By: #### C MP ####[facility] [address] [place] [address]DrHernandez Tucker ALP [Catalytic activity/Vol] 52 U/L Normal 46-116 [facility] Comment on above: Performed By: #### C MP ####[facility] [address]swm[address] [place] [address]DrHernandez Tucker ALT [Catalytic activity/Vol] 31 U/L Normal 14-59 [facility] Comment on above: Performed By: #### C MP ####[facility] [address] [place] [address]DrHernandez Tucker Anion gap [Moles/Vol] 9.6 mmol/L Normal [facility] Comment on above: Performed By: #### C MP ####[facility] [address] [place] [address]DrHernandez Tucker AST [Catalytic activity/Vol] 15 U/L Normal 15-37 [facility] Comment on above: Performed By: #### C MP ####[facility] [address] [place] [address]Dr. Douglas Tucker Bilirubin [Mass/Vol] 0.3 mg/dL Normal 0.2-1.0 [facility] Comment on above: Performed By: #### C MP ####[facility] [address] [place], [place] [address]Dr. Douglas Tucker Calcium [Mass/Vol] 8.6 mg/dL Normal 8.5-10.1 [facility] Comment on above: Performed By: #### C MP ####[facility] [address] [place], [place] [address]Dr. Douglas Tucker Chloride [Moles/Vol] 107 mmol/L Normal 98-107 [facility] Comment on above: Performed By: #### C MP ####[facility] [address] [place], [place] [address]Dr. Douglas Tucker CO2 [Moles/Vol] 27.4 mmol/L Normal 21.0-32.0 [facility] Comment on above: Performed By: #### C MP ####[facility] [address] [place], [place] [address]Dr. Douglas Tucker Creatinine [Mass/Vol] 0.90 mg/dL Normal 0.55-1.02 [facility] Comment on above: Performed By: #### C MP ####[facility] [address] [place], [place] [address]Dr. Douglas Garrett EGFR-AF LEBANESE >60 Normal >=60 [facility] Comment on above: Performed By: #### C MP ####[facility] [address] [place], [place] [address]Dr. Douglas Tucker EGFR-NON AF LEBANESE >60 Normal >=60 [facility] Comment on above: Performed By: #### C MP ####[facility] [address] [place], [place] [address]Dr. Umuana Tucker Globulin (S) [Mass/Vol] 3.4 g/dL Normal [facility] Comment on above: Performed By: #### C MP ####[facility] [address] [place] [id number]. Umuana Tucker Glucose [Mass/Vol] 90 mg/dL Normal 74-106 [facility] Comment on above: Performed By: #### C MP ####[facility] [address] [place] [id number]. Douglas Tucker Potassium [Moles/Vol] 4.0 mmol/L Normal 3.5-5.1 [facility] Comment on above: Performed By: #### C MP ####[facility] [address] [place] [address]Dr. Douglas Tucker Protein [Mass/Vol] 7.3 g/dL Normal 6.4-8.2 [facility] Comment on above: Performed By: #### C MP ####[facility] [address] [place] [address]Dr. Douglas Tucker Sodium [Moles/Vol] 140 mmol/L Normal 136-145 [facility] Comment on above: Performed By: #### C MP ####[facility] [address] [place] [id number]. Douglas Tucker Urea nitrogen [Mass/Vol] 10.0 mg/dL Normal 7.0-18.0 [facility] Comment on above: Performed By: #### C MP ####[facility] [address] [place] [address]Dr. Douglas Tucker Urea nitrogen/Creatinine [Mass ratio] 11.1 mg/mg Normal [facility] Comment on above: Performed By: #### C MP ####[facility] [address] [place] [id number]. Douglas Tucker URINE MICROSCOPIC ONLYon BACTERIA MODERATE Abnormal NONE SEEN [facility] Comment on above: Performed By: #### U MICRO, ERUR #### [facility] [address] [place], [place] [address] Dr. Douglas Tucker Bacteria identified Cx Nom (U) INDICATED Normal [facility] Comment on above: Performed By: #### U MICRO, ERUR #### [facility] [address] [place] [address] Dr. Douglas Tucker CAST NONE SEEN Normal NONE SEEN [facility] Comment on above: Performed By: #### U MICRO, ERUR #### [facility] [address] [place] [address] Dr. Douglas Tucker Crystals LM Nom (Urine sed) NONE SEEN Normal NONE SEEN [facility] Comment on above: Performed By: #### U MICRO, ERUR #### [facility] [address] [place] [address] Dr. Douglas Tucker Epithelial cells LM Ql (Urine sed) FEW Abnormal NONE SEEN /RARE [facility] Comment on above: Performed By: #### U MICRO, ERUR #### [facility] [address] [place] [address] Dr. Douglas Tucker MUCOUS NONE SEEN Normal NONE SEEN [facility] Comment on above: Performed By: #### U MICRO, ERUR #### [facility] [address] [place] [address] Dr. Douglas Tucker RBC 0-2 Normal 0-2 [facility] Comment on above: Performed By: #### U MICRO, ERUR #### [facility] [address] [place] [address] Dr. Douglas Tucker WBC 2-5 Abnormal NONE SEEN [facility] Comment on above: Performed By: #### U MICRO, ERUR #### [facility] [address] [place] [address] Dr. Douglas Tucker US KIDNEYSon 01-28-2022 US KIDNEYS EXAMINATION: [facility] HISTORY: Pain ; right flank pain for [...] RICHELLE BUSH Date: 2022-01-28 13:45 Normal [facility] CBC AUTO DIFFon 10-29-2021 BASO # 0.1 103/ul Normal 0.0-0.1 [facility] Comment on above: Performed By: #### C BC ####[facility] [address] [place] [address]Dr. Douglas Tucker Basophils/100 WBC (Bld) 0.8 % Normal 0.2-2.0 [facility] Comment on above: Performed By: #### C BC ####[facility] [address] [place], [place] [address]Dr. Douglas Tucker EO # 0.2 103/ul Normal 0.0-0.7 [facility] Comment on above: Performed By: #### C BC ####[facility] [address] [place], [place] [address]Dr. Douglas Tucker Eosinophils/100 WBC (Bld) 3.0 % Normal 0.9-7.0 [facility] Comment on above: Performed By: #### C BC ####[facility] [address] [place], [place] [address]Dr. Douglas Tucker Erythrocyte distribution width (RBC) [Ratio] 12.2 % Normal 11.0-15.0 [facility] Comment on above: Performed By: #### C BC ####[facility] [address] [place], [place] [address]Dr. Douglas Tucker Hematocrit (Bld) [Volume fraction] 39.9 % Normal 36.0-48.0 [facility] Comment on above: Performed By: #### C BC ####[facility] [address] [place], [place] [address]Dr. Douglas Tucker Hemoglobin (Bld) [Mass/Vol] 13.5 g/dL Normal 12.0-16.0 [facility] Comment on above: Performed By: #### C BC ####[facility] [address] [place] [id number]. Douglas Tucker IG # 0.01 10e3/ul Normal 0.00-0.03 [facility] Comment on above: Performed By: #### C BC ####[facility] [address] [place] [address]Dr. Douglas Tucker IG % 0.2 % Normal 0.0-0.5 [facility] Comment on above: Performed By: #### C BC ####[facility] [address] [place] [address]Dr. Douglas Garrett LYMPH # 3.0 103/ul Normal 1.2-3.8 [facility] Comment on above: Performed By: #### C BC ####[facility] [address]flx[address] [place] [address]Dr. Douglas Tucker Lymphocytes/100 WBC (Bld) 44.6 % Normal 20.5-60.0 [facility] Comment on above: Performed By: #### C BC ####[facility] [address] [place] [address]Dr. Umuana Tucker MANUAL DIFF REQ NO Normal [facility] Comment on above: Performed By: #### C BC ####[facility] [address] [place] [address]Dr. Douglas Tucker MCH (RBC) [Entitic mass] 32.1 pg Normal 26.7-34.0 [facility] Comment on above: Performed By: #### C BC ####[facility] Nmwqeeryyk8576 [place] [address]Dr. Douglas Tucker MCHC (RBC) [Mass/Vol] 33.8 g/dL Normal 29.9-35.2 [facility] Comment on above: Performed By: #### C BC ####[facility] Vpaftlajyv5428 [place] [address]Dr. Douglas Garrett MCV (RBC) [Entitic vol] 95.0 fL Normal 81.0-99.0 [facility] Comment on above: Performed By: #### C BC ####[facility] Dbefgpnhbq4223 [place] [id number]. Douglas Tucker MONO # 0.5 103/ul Normal 0.3-0.8 [facility] Comment on above: Performed By: #### C BC ####[facility] Rubdewlajg8554 [place] [phone]. Douglas Tucker Monocytes/100 WBC (Bld) 7.8 % Normal 1.7-12.0 [facility] Comment on above: Performed By: #### C BC ####[facility] Hsgbhzezwh7915 [place] [address]Dr. Douglas Tucker NEUT # 2.9 103/ul Normal 1.4-6.5 [facility] Comment on above: Performed By: #### C BC ####[facility] Dpexjtklqs2706 [place] [address]Dr. Douglas Tucker Neutrophils/100 WBC (Bld) 43.6 % Normal 43.0-75.0 [facility] Comment on above: Performed By: #### C BC ####[facility] Uowonqfbik1958 [place] [phone]. Douglas Tucker Platelet mean volume (Bld) [Entitic vol] 11.1 fL Normal 9.5-13.5 [facility] Comment on above: Performed By: #### C BC ####[facility] Vgzqecskgu7621 [place] [phone]. Douglas Tucker PLT 188 103/ul Normal 150-450 [facility] Comment on above: Performed By: #### C BC ####[facility] Xfznxkvqsb4551 [place] [address]Dr. Douglas Tucker RBC 4.20 106/ul Normal 4.20-5.40 [facility] Comment on above: Performed By: #### C BC ####[facility] Kzhenrpvmh7776 [place] [phone]. Douglas Tucker WBC 6.6 103/ul Normal 4.0-11.0 [facility] Comment on above: Performed By: #### C BC ####[facility] [address] [place], [place] [address]Dr. Douglas Tucker MAGNESIUMon 10-29-2021 Magnesium [Mass/Vol] 2.1 mg/dL Normal 1.8-2.4 [facility] Comment on above: Performed By: #### Alyse Alejandro, CMP ####[facility] [address]ieaoz[address] [place], [place] [address]Dr. Douglas Tucker PROF 14(COMP METB)on 022 Albumin [Mass/Vol] 3.6 g/dL Normal 3.4-5.0 [facility] Comment on above: Performed By: #### Alyse Alejandro, CMP ####[facility] F[address]zon[address]ix[address] [place], [place] [address]Dr. Douglas Tucker Albumin/Globulin [Mass ratio] 1.2 {ratio} Normal [facility] Comment on above: Performed By: #### Alyse Alejandro, CMP ####[facility] Qgxyfjcous[address] [place], [place] [address]Dr. Douglas Tucker ALP [Catalytic activity/Vol] 61 U/L Normal 46-116 [facility] Comment on above: Performed By: #### Alyse Alejandro, CMP ####[facility] Csaglujqqt[address] [place], [place] [address]Dr. Douglas Tucker ALT [Catalytic activity/Vol] 25 U/L Normal 14-59 [facility] Comment on above: Performed By: #### Alyse Alejandro, CMP ####[facility] Vhnwiwesry[address] [place], [place] [address]Dr. Douglas Tucker Anion gap [Moles/Vol] 12.4 mmol/L Normal [facility] Comment on above: Performed By: #### Alyse Alejandro, CMP ####[facility] Mnujtsdfed[address] [place], [place] [address]Dr. Douglas Tucker AST [Catalytic activity/Vol] 23 U/L Normal 15-37 [facility] Comment on above: Performed By: #### Alyse Alejandro, CMP ####[facility] Dhkesmlord[address] [place], [place] [address]Dr. Douglas Tucker Bilirubin [Mass/Vol] 0.3 mg/dL Normal 0.2-1.0 [facility] Comment on above: Performed By: #### Alyse Alejandro, CMP ####[facility] Icebtdfxuz0003 [place] [address]Dr. Douglas Tucker Calcium [Mass/Vol] 8.5 mg/dL Normal 8.5-10.1 [facility] Comment on above: Performed By: #### M G, CMP ####[facility] Mqxxltidxq5611 [place] [address]Dr. Douglas Tucker Chloride [Moles/Vol] 106 mmol/L Normal 98-107 [facility] Comment on above: Performed By: #### M G, CMP ####[facility] Btqsnkynin1037 [place] [address]Dr. Douglas Tucker CO2 [Moles/Vol] 22.8 mmol/L Normal 21.0-32.0 [facility] Comment on above: Performed By: #### Alyse Alejandro, CMP ####[facility] [address] [place], [place] [address]Dr. Douglas Tucker Creatinine [Mass/Vol] 0.76 mg/dL Normal 0.55-1.02 [facility] Comment on above: Performed By: #### Alyse Alejandro, CMP ####[facility] [address]zt[address] [place], [place] [address]Dr. Douglas Tucker EGFR-AF LEBANESE >60 Normal >=60 [facility] Comment on above: Performed By: #### Alyse Alejandro, CMP ####[facility] [address]owf[address] [place], [place] [address]Dr. Douglas Tucker EGFR-NON AF LEBANESE >60 Normal >=60 [facility] Comment on above: Performed By: #### M G, CMP ####[facility] Rdwgkhdvne[address] [place], [place] [address]Dr. Douglas Tucker Globulin (S) [Mass/Vol] 3.0 g/dL Normal [facility] Comment on above: Performed By: #### M Javon, CMP ####[facility] Smowx[address]iumm[address] [place], [place] [address]Dr. Douglas Tucker Glucose [Mass/Vol] 110 mg/dL Critically high 74-106 [facility] Comment on above: Performed By: #### Alyse Alejandro, CMP ####[facility] Ndrexvzbpi7250 [place] [phone]. Douglas Tucker Potassium [Moles/Vol] 4.2 mmol/L Normal 3.5-5.1 [facility] Comment on above: Performed By: #### M G, CMP ####[facility] Zoenuhmusm4206 [place] [phone]. Douglas Tucker Protein [Mass/Vol] 6.6 g/dL Normal 6.4-8.2 [facility] Comment on above: Performed By: #### M G, CMP ####[facility] Dnqsxbyhpg4030 [place] [phone]. Douglas Tucker Sodium [Moles/Vol] 137 mmol/L Normal 136-145 [facility] Comment on above: Performed By: #### M G, CMP ####[facility] [address] [place], [place] [address]Dr. Douglas Tucker Urea nitrogen [Mass/Vol] 12.0 mg/dL Normal 7.0-18.0 [facility] Comment on above: Performed By: #### M G, CMP ####[facility] [address]ls[address] [place], [place] [address]Dr. Douglas Tucker Urea nitrogen/Creatinine [Mass ratio] 15.8 mg/mg Normal [facility] Comment on above: Performed By: #### M G, CMP ####[facility] Jz[address]fra[address] [place], [place] [address]Dr. Douglas Tucker [facility] 03-07-2021 [facility] HNO ID: [id number] Author: RT Pati(R) Service: Radiology Author Type: [...] RT Pati(R) March 07, 2021 5:32 PM [facility] CNDSon 03-07-2021 [facility] HNO ID: [id number] Author: Rosalie Haile MD Service: ? Author [...] known as: ZANAFLEX Rosalie Haile MD Normal [facility] HISTORY PHYSICALon HISTORY PHYSICAL HNO ID: [id number] Author: Rosalie Haile MD Service: ? Author Type: Physician Type: HANDP Filed: 03/11/2021 7:31 PM Note Text: [facility] : 1990 AGE: 31 SEX: F CSN: [id number] [facility]: [facility] LOCATION: [facility] ATTENDING PHYSICIAN: Rosalie Haile M.D. ? ? DATE OF SERVICE: 03/06/2021 ? ? SUBJECTIVE: Patient with a history of diabetes and obesity. Admitted to the hospital with seizure. ?This is a 31 year old female with a hx of seizures, diabetes, anxiety, and conversion disorder, who reportedly had a seizure [place] the [place] [facility]. She and her boyfriend had [...] (TORADOL) 15 mg INTRAVENOUS q 6 H iTm Sanches MD 15 mg at 03/06/21 1508 [...] 40.1 WBC (k/uL) Date Value 03/06/2021 6.79 [facility] consultants notes reviewed Most recent images [...] goiter No carotid bruits. Rosalie Haile MD [facility] MRI BRAIN WO IVCONon 021 MRI BRAIN [...] Routine noncontrast MRI protocol including diffusion images. Auzt-vn-ldcxtf MRV brain with post-processing performed at the [...] intravenous contrast. Patent major dural venous sinuses. Machine Pecan Picker: [email or web address] Transcribe Date/Time: Mar 07 2021 5:46P Dictated by : HOLLAND MUELLER MD This examination was interpreted and the report reviewed and electronically signed by: HOLLAND MUELLER MD on Mar 07 2021 5:51PM EST [id number] Normal [facility] MRV BRAIN WO IVCONon 021 MRV BRAIN WO IVCON * * *Final Report* * * DATE OF EXAM: Mar 07 2021 5:42PM [facility] 0335 - MRV BRAIN WO IVCON / PROCEDURE REASON: Dural venous sinus thrombosis suspected * * * * Physician Interpretation * * * * EXAMINATION: MRI BRAIN WO IVCON, MRV BRAIN WO IVCON CLINICAL HISTORY: Clinical concern for dural venous sinus thrombosis. Headache. TECHNIQUE: Routine noncontrast MRI protocol including diffusion images. Qgrk-jm-vzivcc MRV brain with post-processing performed at the [...] intravenous contrast. Patent major dural venous sinuses. Machine Pecan Picker: [email or web address] Transcribe Date/Time: Mar 07 2021 5:46P Dictated by : HOLLAND MUELLER MD This examination was interpreted and the report reviewed and electronically signed by: HOLLAND MUELLER MD on Mar 07 2021 5:51PM EST [id number] Normal [facility] NURSING PROGon 03-07-2021 NURSING PROG HNO ID: [id number] Author: Toya Pompa RN Service: ? Author Type: Registered Nurse Type: Nursing Progress Note Filed: 03/07/2021 11:35 PM Note Text: Nursing Progress Note Patient Name: Sully Enriquez Patient Location: Pt discharged, transferred via wheelchair to exit where was picking her up. IV/tele removed. All belongings accounted for. This note was completed by: Toya Pompa [facility] NURSING PROG HNO ID: [id number] Author: Cordelia Faye, RN Service: Nursing Author [...] This note was completed by: Cordelia Faye [facility] NURSING PROG HNO ID: [id number] Author: Breanne Reis RN Service: ? Author [...] This note was completed by: Smiley Raymundo [facility] NURSING PROG HNO ID: [id number] Author: Yoselin Cui RN Service: Nursing Author [...] This note was completed by: Yoselin Padilla [facility] ALLIED HEALTHon 03-06-2021 ALL[facility] HNO ID: [id number] Author: RT Sanam(Jd) Service: ? Author Type: [...] Sanam(R) March 06, 2021 2:45 AM Normal [facility] CBC and Differentialon 03-06 Abs Baso 0.04 k/uL Normal <0.11 [facility] Comment on above: Performed By: #### C K, ALCO, CBCDIF, CMP, MG1 ####[place] [id number] [place] [phone] Abs Labette 0.55 k/uL Normal <0.87 [facility] Comment on above: Performed By: #### C K, ALCO, CBCDIF, CMP, MG1 ####[place] [address] [place], [place] [phone] Abs Neut 3.17 k/uL Normal 1.45-7.50 [facility] Comment on above: Performed By: #### C K, ALCO, CBCDIF, CMP, MG1 ####[address] [phone] Absolute nRBC <0.01 Normal <0.01 [facility] Comment on above: Performed By: #### C K, ALCO, CBCDIF, CMP, MG1 ####[place] [address] Basophils/100 WBC (Bld) 0.6 % Normal [facility] Comment on above: Performed By: #### C K, ALCO, CBCDIF, CMP, MG1 ####[place] [address] DTYPE Auto Diff Normal [facility] Comment on above: Performed By: #### C K, ALCO, CBCDIF, CMP, MG1 ####[place] [address] Eosinophils (Bld) [#/Vol] 0.17 10*3/uL Normal <0.46 [facility] Comment on above: Performed By: #### C K, ALCO, CBCDIF, CMP, MG1 ####[place] [address] Eosinophils/100 WBC (Bld) 2.5 % Normal [facility] Comment on above: Performed By: #### C K, ALCO, CBCDIF, CMP, MG1 ####[place] [address] Erythrocyte distribution width (RBC) [Ratio] 12.0 % Normal 11.5-15.0 [facility] Comment on above: Performed By: #### C K, ALCO, CBCDIF, CMP, MG1 ####[place] [address] Hematocrit (Bld) [Volume fraction] 40.1 % Normal 36.0-46.0 [facility] Comment on above: Performed By: #### C K, ALCO, CBCDIF, CMP, MG1 ####[place] [address] Hemoglobin (Bld) [Mass/Vol] 13.2 g/dL Normal 11.5-15.5 [facility] Comment on above: Performed By: #### C K, ALCO, CBCDIF, CMP, MG1 ####[place] [phone] Lymphocytes (Bld) [#/Vol] 2.85 10*3/uL Normal 1.00-4.00 [facility] Comment on above: Performed By: #### C K, ALCO, CBCDIF, CMP, MG1 ####[place] [phone] Lymphocytes/100 WBC (Bld) 42.0 % Normal [facility] Comment on above: Performed By: #### C K, ALCO, CBCDIF, CMP, MG1 ####[place] [phone] MCH 31.8 pG Normal 26.0-34.0 [facility] Comment on above: Performed By: #### C K, ALCO, CBCDIF, CMP, MG1 ####[place] [phone] MCHC (RBC) [Mass/Vol] 32.9 g/dL Normal 30.5-36.0 [facility] Comment on above: Performed By: #### C K, ALCO, CBCDIF, CMP, MG1 ####[place] [phone] MCV (RBC) [Entitic vol] 96.6 fL Normal 80.0-100.0 [facility] Comment on above: Performed By: #### C K, ALCO, CBCDIF, CMP, MG1 ####[place] [phone] Monocytes/100 WBC (Bld) 8.1 % Normal [facility] Comment on above: Performed By: #### C K, ALCO, CBCDIF, CMP, MG1 ####[place] [phone] Neutrophils/100 WBC (Bld) 46.8 % Normal [facility] Comment on above: Performed By: #### C K, ALCO, CBCDIF, CMP, MG1 ####[place] [phone] NRBCs 0.0 /100 WBC Normal 0 [facility] Comment on above: Performed By: #### C K, ALCO, CBCDIF, CMP, MG1 ####[place] [phone] Platelet mean volume (Bld) [Entitic vol] 10.7 fL Normal 9.0-12.7 [facility] Comment on above: Performed By: #### C K, ALCO, CBCDIF, CMP, MG1 ####[place] [phone] Platelets (Bld) [#/Vol] 183 10*3/uL Normal 150-400 [facility] Comment on above: Performed By: #### C K, ALCO, CBCDIF, CMP, MG1 ####[place] [phone] RBC (Bld) [#/Vol] 4.15 10*6/uL Normal 3.90-5.20 [facility] Comment on above: Performed By: #### C K, ALCO, CBCDIF, CMP, MG1 ####[place] [phone] WBC (Bld) [#/Vol] 6.79 10*3/uL Normal 3.70-11.00 [facility] Comment on above: Performed By: #### C K, ALCO, CBCDIF, CMP, MG1 ####[place] [phone] CKon 03-06-2021 CK [Catalytic activity/Vol] 103 U/L Normal 30-220 [facility] Comment on above: Performed By: #### C K, ALCO, CBCDIF, CMP, MG1 ####[place] [phone] CONSULTon 03-06-2021 CONSULT HNO ID: [id number] Author: Saravanan Yancey MD Service: Neurology General Author Type: Resident Type: Consults Filed: 03/06/2021 5:10 PM Note Text: ----- Attestation signed by Tim Sanches MD at 03/06/2021 9:16 PM [facility] STAFF PHYSICIAN NOTE OF PERSONAL INVOLVEMENT IN [...] her had just deplaned coming back from [place] x 3 days and she had not [...] [place] who is a family doctor in [facility], and she has noted hx of [...] Facility-Administered Medica (more content not included)... Normal [facility] CT BRAIN WO IVCONon 03-06-20 21 [...] Other: No depressed skull fracture is seen. Resp Therapist (topogram) images: Non-diagnostic. IMPRESSION: No CT evidence of an acute intracranial abnormality. Other: details above. Machine Pecan Picker: [email or web address] Transcribe Date/Time: Mar 06 2021 3:13A Dictated by : JENN MORENO MD This examination was interpreted and the report reviewed and electronically signed by: JENN MORENO MD on Mar 06 2021 3:15AM EST [id number] Normal [facility] Comp Metabolic Panelon 03-06 Albumin [Mass/Vol] 4.6 g/dL Normal 3.5-5.0 [facility] Comment on above: Performed By: #### C K, ALCO, CBCDIF, CMP, MG1 ####[place] [phone] ALP [Catalytic activity/Vol] 67 U/L Normal 34-123 [facility] Comment on above: Performed By: #### C K, ALCO, CBCDIF, CMP, MG1 ####[place] [phone] ALT [Catalytic activity/Vol] 15 U/L Normal 0-45 [facility] Comment on above: Performed By: #### C K, ALCO, CBCDIF, CMP, MG1 ####[place] [phone] Anion gap [Moles/Vol] 10 mmol/L Normal 9-18 [facility] Comment on above: Performed By: #### C K, ALCO, CBCDIF, CMP, MG1 ####[place] [phone] AST [Catalytic activity/Vol] 15 U/L Normal 7-40 [facility] Comment on above: Performed By: #### C K, ALCO, CBCDIF, CMP, MG1 ####[place] [phone] Bilirubin [Mass/Vol] 0.2 mg/dL Normal 0.2-1.3 [facility] Comment on above: Performed By: #### C K, ALCO, CBCDIF, CMP, MG1 ####[place] [phone] Calcium [Mass/Vol] 9.3 mg/dL Normal 8.5-10.5 [facility] Comment on above: Performed By: #### C K, ALCO, CBCDIF, CMP, MG1 ####[place] [phone] Chloride [Moles/Vol] 106 mmol/L Normal 98-110 [facility] Comment on above: Performed By: #### C K, ALCO, CBCDIF, CMP, MG1 ####[place] [phone] CO2 [Moles/Vol] 25 mmol/L Normal 23-32 [facility] Comment on above: Performed By: #### C K, ALCO, CBCDIF, CMP, MG1 ####[place] [phone] Creatinine [Mass/Vol] 0.99 mg/dL Normal 0.70-1.40 [facility] Comment on above: Performed By: #### C K, ALCO, CBCDIF, CMP, MG1 ####[place] [phone] eGFR- Amer. >60 Normal >60 [facility] Comment on above: Performed By: #### C K, ALCO, CBCDIF, CMP, MG1 ####[place] [phone] eGFR-All Other Races >60 Normal >60 [facility] Comment on above: Result Comment: eGFR [...] #### C K, ALCO, CBCDIF, CMP, MG1 ####[place] [phone] Glucose [Mass/Vol] 103 mg/dL High 65-100 [facility] Comment on above: Performed By: #### C K, ALCO, CBCDIF, CMP, MG1 ####[place] [phone] Potassium [Moles/Vol] 3.9 mmol/L Normal 3.5-5.0 [facility] Comment on above: Performed By: #### C K, ALCO, CBCDIF, CMP, MG1 ####[place] [phone] Protein [Mass/Vol] 7.1 g/dL Normal 6.0-8.4 [facility] Comment on above: Performed By: #### C K, ALCO, CBCDIF, CMP, MG1 ####[place] [phone] Sodium [Moles/Vol] 141 mmol/L Normal 132-148 [facility] Comment on above: Performed By: #### C K, ALCO, CBCDIF, CMP, MG1 ####[place] [phone] Urea nitrogen [Mass/Vol] 12 mg/dL Normal 8-25 [facility] Comment on above: Performed By: #### C K, ALCO, CBCDIF, CMP, MG1 ####[place] [phone] ED NOTEon 03-06-2021 ED NOTE HNO ID: [id number] Author: Isabell Olivares RN Service: ? Author Type: Registered Nurse Type: ED Notes Filed: 03/06/2021 9:38 PM Note Text: Report to JUS Reis. [facility] ED NOTE HNO ID: [id number] Author: Isabell Olivares RN Service: ? Author Type: Registered Nurse Type: ED Notes Filed: 03/06/2021 7:16 PM Note Text: Pt up to bedside commode in room with steady gait, pt back to bed, siderails up x 2. [facility] ED NOTE HNO ID: [id number] Author: Isabell Olivares RN Service: ? Author Type: Registered Nurse Type: ED Notes Filed: 03/06/2021 6:32 PM Note Text: Meal tray arrives at the bedside. [facility] ED NOTE HNO ID: [id number] Author: Isabell Olivares RN Service: ? Author Type: Registered Nurse Type: ED Notes Filed: 03/06/2021 6:02 PM Note Text: Pt encouraged to call for dinner tray. Pt reports her headache has improved. [facility] ED NOTE HNO ID: [id number] Author: Isabell Olivares RN Service: ? Author Type: Registered Nurse Type: ED Notes Filed: 03/06/2021 5:18 PM Note Text: Pt states much improvement to her headache, resting in the room with her family, lights dimmed for comfort. [facility] ED NOTE HNO ID: [id number] Author: Isabell Olivares RN Service: ? Author Type: Registered Nurse Type: ED Notes Filed: 03/06/2021 2:48 PM Note Text: Pt reports no improvement in her headache, pt resting with lights off and warm blankets with family at bedside. No new orders at this time. Neurology paged. [facility] ED NOTE HNO ID: [id number] Author: Isabell Olivares RN Service: ? Author Type: Registered Nurse Type: ED Notes Filed: 03/06/2021 2:25 PM Note Text: MRI form faxed to MRI. Pt states she has claustrophobia with MRI, Neurology paged. [facility] ED NOTE HNO ID: [id number] Author: Isabell Olivares RN Service: ? Author Type: Registered Nurse Type: ED Notes Filed: 03/06/2021 2:04 PM Note Text: MRI Screening form given to the patient. [facility] ED NOTE HNO ID: [id number] Author: Isabell Olivares RN Service: ? Author Type: Registered Nurse Type: ED Notes Filed: 03/06/2021 1:56 PM Note Text: Pt assisted onto and off the bedpan. [facility] ED NOTE HNO ID: [id number] Author: Isabell Olivares RN Service: ? Author Type: Registered Nurse Type: ED Notes Filed: 03/06/2021 1:56 PM Note Text: Pt accucheck 100, meal tray at bedside. [facility] ED NOTE HNO ID: [id number] Author: Isabell Olivares RN Service: ? Author Type: Registered Nurse Type: ED Notes Filed: 03/06/2021 1:39 PM Note Text: Neurology at bedside with the patient. [facility] ED NOTE HNO ID: [id number] Author: Isabell Olivares RN Service: ? Author Type: Registered Nurse Type: ED Notes Filed: 03/06/2021 1:26 PM Note Text: Verbal order from Dr. Haile for 25mg PO benadryl [facility] ED NOTE HNO ID: [id number] Author: Isabell Olivares RN Service: ? Author Type: Registered Nurse Type: ED Notes Filed: 03/06/2021 11:20 AM Note Text: Pt resting in bed with seizure pads in place, pt family member sleeping in the bed with the patient, pt family member asked to not be in the bed with the patient for patient safety. [facility] ED NOTE HNO ID: [id number] Author: Jade Forte RN Service: ? Author Type: Registered Nurse Type: ED Notes Filed: 03/06/2021 11:13 AM Note Text: Patient report given to JUS Whyte [facility] ED NOTE HNO ID: [id number] Author: Isabell Olivares RN Service: ? Author Type: Registered Nurse Type: ED Notes Filed: 03/06/2021 11:02 AM Note Text: Assumed care of the patient at this time, received report from JUS Hansen. Plan of Care: - maintain patient comfort, safety and privacy - monitor for changes in condition - bed locked, low position, siderails up - call light within reach [facility] ED NOTE HNO ID: [id number] Author: Jade Forte RN Service: ? Author Type: Registered Nurse Type: ED Notes Filed: 03/06/2021 11:05 AM Note Text: Patient reports continuing to have headache. Spouse also reports had another few second seizure. House paged. [facility] ED NOTE HNO ID: [id number] Author: Jade Forte RN Service: ? Author Type: Registered Nurse Type: ED Notes Filed: 03/06/2021 10:11 AM Note Text: Called lab, breakfast tray ordered [facility] ED NOTE HNO ID: [id number] Author: Jade Forte RN Service: ? Author Type: Registered Nurse Type: ED Notes Filed: 03/06/2021 8:43 AM Note Text: Patient placed on bedpan. Patient and sheets soiled. Patient cleaned, linens changed [facility] ED NOTE HNO ID: [id number] Author: Jade Forte RN Service: ? Author Type: Registered Nurse Type: ED Notes Filed: 03/06/2021 8:31 AM Note Text: Answered patient call light. Patient requesting bedpan. Patient reports patient just had seizure . House paged and returned call. [facility] ED NOTE HNO ID: [id number] Author: Jade Forte RN Service: ? Author Type: Registered Nurse Type: ED Notes Filed: 03/06/2021 7:39 AM Note Text: Patient resting in bed. Declines breakfast at this time. Reports headache and nausea. House paged. [facility] [facility] ED NOTE HNO ID: [id number] Author: Jade Forte RN Service: ? Author Type: Registered Nurse Type: ED Notes Filed: 03/06/2021 7:07 AM Note Text: Patient report received from JUS Schuler [facility] ED PROV NOTEon 03-06-2021 ED PROV NOTE HNO ID: [id number] Author: Adeel Mauro MD Service: Hospital Medicine [...] (*) Negative (more content not included)... Normal [facility] Ethanolon 03-06-2021 Ethanol [Mass/Vol] mg/dL Normal <11 [facility] Comment on above: Performed By: #### C K, ALCO, CBCDIF, CMP, MG1 ####[place] [phone] Expedited [id number] 03-06-20 21 SARS-CoV-2 (COVID-19) RNA AZ+probe Ql (Unsp spec) UPPER RESPIRATORY TRACT SWAB Normal [facility] Comment on above: Performed By: #### E XCOVD #### [place] [phone] SARS-CoV-2 (COVID-19) RNA AZ+probe Ql (Unsp spec) Negative for COVID19 (SARS CoV2) by RT-PCR or equivalent method. Normal Negative for COVID19 (SARS CoV2) by RT-PCR or equivalent method. [facility] Comment on above: Result Comment: This test has been authorized by FDA under an Emergency Use Authorization (EUA). Performed By: #### E XCOVD #### [place] [phone] HCG Qual, Urineon 03-06-2021 Beta HCG ( test) Ql (U) Negative Normal Negative [facility] Comment on above: Performed By: #### U HCG ####[place] [phone] HISTORY PHYSICALon HISTORY PHYSICAL HNO ID: [id number] Author: Adonis Mahoney MD Service: General Internal Medicine Author Type: Physician Type: HANDP Filed: 03/06/2021 6:51 AM Note Text: HISTORY AND PHYSICAL EXAMINATION * SERVICE DATE: 03/06/2021 PRIMARY CARE PHYSICIAN: Roxie Strickland NP Subjective CHIEF COMPLAINT: Seizures HPI: This is a 31 year old female with a hx of seizures, diabetes, anxiety, and conversion disorder, who reportedly had a seizure at the [place] [facility]. She and her boyfriend had [...] March 06, 2021 TIME: 6:08 AM Normal [facility] Magnesiumon 03-06-2021 Magnesium [Mass/Vol] 2.1 mg/dL Normal 1.7-2.6 [facility] Comment on above: Performed By: #### C K, ALCO, CBCDIF, CMP, MG1 ####[place] [phone] TSHon 03-06-2021 TSH Qn 3.170 m[IU]/L Normal 0.270-4.200 [facility] Comment on above: Result Comment: If [...] E, et al. 2017 Guidelines of the [place] [employer] for the Diagnosis and Management of Thyroid Disease during and the . Thyroid, 2017:27:3:315-389. Performed By: #### T SH ####[place] [phone] Toxicology Screen,Uron 03-06 Amphetamines, Urine Negative Normal Negative [facility] Comment on above: Result Comment: Cuto ff threshold at 1000 ng/mL. Performed By: #### U TOX2, UAWMIC #### [address] [address] Barbiturates, Urine Negative Normal Negative [facility] Comment on above: Result Comment: Cuto ff threshold at 200 ng/mL. Performed By: #### U TOX2, UAWMIC #### [place] [address] Benzodiazepines, Ur Negative Normal Negative [facility] Comment on above: Result Comment: Cuto ff threshold at 200 ng/mL. Performed By: #### U TOX2, UAWMIC #### [place] [address] Cannabinoids, Urine Negative Normal Negative [facility] Comment on above: Result Comment: Cuto ff threshold at 50 ng/mL. Performed By: #### U TOX2, UAWMIC #### [place] [address] Cocaine, Urine Negative Normal Negative [facility] Comment on above: Result Comment: Cuto ff threshold at 300 ng/mL. Performed By: #### U TOX2, UAWMIC #### [place] [address] Ethanol, Urine <11 Normal <11 [facility] Comment on above: Performed By: #### U TOX2, UAWMIC #### [place] [address] Opiates, Urine Negative Normal Negative [facility] Comment on above: Result Comment: Cuto ff threshold at 300 ng/mL. Performed By: #### U TOX2, UAWMIC #### [place] [address] Oxycodone, Urine Negative Normal Negative [facility] Comment on above: Result Comment: Cuto [...] on the same specimen through Client Services ([phone]) if contacted within 48 hours of initial testing. [1]Substance Abuse and Mental Health Services Administration (2012). Clinical Drug Testing in Primary Care Technical Assistance Publication Series 32. Department of Health and Human Services, [place], p.10. Performed By: #### U TOX2, UAWMIC #### [place] [address] Phencyclidine, Urine Negative Normal Negative [facility] Comment on above: Result Comment: Cuto ff threshold at 25 ng/mL. Performed By: #### U TOX2, UAWMIC #### [place] [address] Urinalysis with Microscopico n 03-06-2021 Bacteria Rare Critically abnormal Negative [facility] Comment on above: Performed By: #### U TOX2, UAWMIC #### [place] [address] Bilirubin, Urine Negative Normal Negative [facility] Comment on above: Performed By: #### U TOX2, UAWMIC #### [place] [address] Clarity (U) Clear Normal Clear [facility] Comment on above: Performed By: #### U TOX2, UAWMIC #### [place] [address] Color (U) Colorless Critically abnormal Yellow [facility] Comment on above: Performed By: #### U TOX2, UAWMIC #### [place] [address] Comments SEE COMMENT Normal [facility] Comment on above: Result Comment: Micr oscopic Examination Performed Performed By: #### U TOX2, UAWMIC #### [place] [address] Epithelial cells LM Ql (Urine sed) SEE COMMENT Critically abnormal Negative [facility] Comment on above: Result Comment: Rare Squamous Epithelial Cells Performed By: #### U TOX2, UAWMIC #### [place] [address] Glucose Ql (U) Negative Normal Negative [facility] Comment on above: Performed By: #### U TOX2, UAWMIC #### [place] [phone] Hemoglobin/Blood,Ur Negative Normal Negative [facility] Comment on above: Performed By: #### U TOX2, UAWMIC #### [address] Ketones Ql (U) Negative Normal Negative [facility] Comment on above: Performed By: #### U TOX2, UAWMIC #### [place] [address] Leukest Negative Normal Negative [facility] Comment on above: Performed By: #### U TOX2, UAWMIC #### [place] [phone] Nitrite Ql (U) Negative Normal Negative [facility] Comment on above: Performed By: #### U TOX2, UAWMIC #### [address] pH (U) 7.0 [pH] Normal 5.0-8.0 [facility] Comment on above: Performed By: #### U TOX2, UAWMIC #### [address] Protein, Urine Negative Normal Negative [facility] Comment on above: Performed By: #### U TOX2, UAWMIC #### [place] [address] RBC Rare Critically abnormal Negative [facility] Comment on above: Performed By: #### U TOX2, UAWMIC #### [place] [id number] Specific Jennings, Ur 1.007 Normal 1.005-1.030 [facility] Comment on above: Performed By: #### U TOX2, UAWMIC #### [facility] [address] [place] [address] Urobilinogen (U) [Mass/Vol] Negative Normal Negative [facility] Comment on above: Performed By: #### U TOX2, UAWMIC #### [facility] [address] [place] [address] WBC Rare Critically abnormal Negative [facility] Comment on above: Performed By: #### U TOX2, UAWMIC #### [facility] [address] [place] [address] Vital Signs Date Time Vital Sign Value Performing Clinician Facility 01-29-2023 10:15-0400 Body height 165.1 cm Mario Pee Other [facility] Other 01-29-2023 10:15-0400 Body mass index (BMI) [Ratio] 37.27 kg/m2 Mario Pee Other [facility] Other 01-29-2023 10:15-0400 Body temperature 96.9 [degF] Mario Pee Other [facility] Other 01-29-2023 10:15-0400 Body weight 101.61 kg Mario Pee Other [facility] Other 01-29-2023 10:15-0400 Diastolic blood pressure 70 mm[Hg] Mario Pee Other [facility] Other 01-29-2023 10:15-0400 Respiratory rate 20 /min Mario Pee Other [facility] Other 01-29-2023 10:15-0400 SaO2% (BldA) [Mass fraction] 99 % Mario Pee Other [facility] Other 01-29-2023 10:15-0400 Systolic blood pressure 110 mm[Hg] Mario Pee Other [facility] Other 12-12-2022 15:15-0400 Body height 165.1 cm Mario Pee Other [facility] Other 12-12-2022 15:15-0400 Body mass index (BMI) [Ratio] 37.77 kg/m2 Mario Pee Other [facility] Other 12-12-2022 15:15-0400 Body weight 102.97 kg Mario Pee Other [facility] Other 12-12-2022 15:15-0400 Diastolic blood pressure 60 mm[Hg] Mario Pee Other [facility] Other 12-12-2022 15:15-0400 Respiratory rate 20 /min Mario Pee Other [facility] Other 12-12-2022 15:15-0400 Systolic blood pressure 102 mm[Hg] Mario Pee Other [facility] Other 11-23-2022 01:18-0400 Diastolic blood pressure 83 mm[Hg] Kaylinn Dokken [facility] 11-23-2022 01:18-0400 Heart rate 64 /min Kaylinn Dokken [facility] 11-23-2022 01:18-0400 Mean blood pressure 94 mm[Hg] Kaylinn Dokken [facility] 11-23-2022 01:18-0400 Respiratory rate 19 /min Kaylinn Dokken [facility] 11-23-2022 01:18-0400 SaO2% (BldA) [Mass fraction] 97 % Kaylinn Dokken [facility] 11-23-2022 01:18-0400 Systolic blood pressure 117 mm[Hg] Kaylinn Dokken [facility] 11-23-2022 01:14-0400 Diastolic blood pressure 85 mm[Hg] Kaylinn Dokken [facility] 11-23-2022 01:14-0400 Heart rate 65 /min Kaylinn Dokken [facility] 11-23-2022 01:14-0400 Mean blood pressure 98 mm[Hg] Kaylinn Dokken [facility] 11-23-2022 01:14-0400 Respiratory rate 18 /min Kaylinn Dokken [facility] 11-23-2022 01:14-0400 SaO2% (BldA) [Mass fraction] 98 % Kaylinn Dokken [facility] 11-23-2022 01:14-0400 Systolic blood pressure 124 mm[Hg] Kaylinn Dokken [facility] 11-23-2022 00:00-0400 Body temperature 98.24 [degF] Kaylinn Dokken [facility] 11-23-2022 00:00-0400 Diastolic blood pressure 63 mm[Hg] Kaylinn Dokken [facility] 11-23-2022 00:00-0400 Mean blood pressure 77 mm[Hg] Sonam Montoya [facility] 11-23-2022 00:00-0400 SaO2% (BldA) [Mass fraction] 99 % Sonam Montoya [facility] 11-23-2022 00:00-0400 Systolic blood pressure 105 mm[Hg] Sonam Montoya [facility] 11-22-2022 22:00-0400 Heart rate 63 /min Sonam Montoya [facility] 11-22-2022 20:59-0400 Body temperature 98.06 [degF] Sonam Montoya [facility] 11-22-2022 20:59-0400 Respiratory rate 19 /min Sonam Montoya [facility] 11-14-2022 13:15-0400 Body height 165.1 cm Mario Pee Other [facility] Other 11-14-2022 13:15-0400 Body mass index (BMI) [Ratio] 37.77 kg/m2 Mario Pee Other [facility] Other 11-14-2022 13:15-0400 Body temperature 97.8 [degF] Mario Pee Other [facility] Other 11-14-2022 13:15-0400 Body weight 102.97 kg Mario Pee Other [facility] Other 11-14-2022 13:15-0400 Diastolic blood pressure 76 mm[Hg] Mario Pee Other [facility] Other 11-14-2022 13:15-0400 Respiratory rate 20 /min Mario Pee Other [facility] Other 11-14-2022 13:15-0400 SaO2% (BldA) [Mass fraction] 97 % Mario Pee Other [facility] Other 11-14-2022 13:15-0400 Systolic blood pressure 100 mm[Hg] Mario Pee Other [facility] Other 10-15-2022 14:45-0400 Body height 165.1 cm Mario Pee Other [facility] Other 10-15-2022 14:45-0400 Body mass index (BMI) [Ratio] 38.44 kg/m2 Mario Pee Other [facility] Other 10-15-2022 14:45-0400 Body temperature 96 [degF] Mario Pee Other [facility] Other 10-15-2022 14:45-0400 Body weight 104.78 kg Mario Pee Other [facility] Other 10-15-2022 14:45-0400 Diastolic blood pressure 78 mm[Hg] Mario Pee Other [facility] Other 10-15-2022 14:45-0400 Respiratory rate 20 /min Mario Pee Other [facility] Other 10-15-2022 14:45-0400 SaO2% (BldA) [Mass fraction] 97 % Mario Pee Other [facility] Other 10-15-2022 14:45-0400 Systolic blood pressure 122 mm[Hg] Mario Pee Other [facility] Other 09-17-2022 13:00-0400 Body height 165.1 cm Mario Pee Other [facility] Other 09-17-2022 13:00-0400 Body mass index (BMI) [Ratio] 39.27 kg/m2 Mario Pee Other [facility] Other 09-17-2022 13:00-0400 Body temperature 96.9 [degF] Mario Pee Other [facility] Other 09-17-2022 13:00-0400 Body weight 107.05 kg Mario Pee Other [facility] Other 09-17-2022 13:00-0400 Diastolic blood pressure 78 mm[Hg] Mario Epe Other [facility] Other 09-17-2022 13:00-0400 Respiratory rate 20 /min Mario Pee Other [facility] Other 09-17-2022 13:00-0400 SaO2% (BldA) [Mass fraction] 96 % Mario Pee Other [facility] Other 09-17-2022 13:00-0400 Systolic blood pressure 124 mm[Hg] Mario Pee Other [facility] Other 05-02-2022 20:23-0500 Body temperature 98 [degF] DO Mario Pee Work Phone: [facility] 05-02-2022 20:23-0500 Diastolic blood pressure 78 mm[Hg] DO Mario Pee Work Phone: [facility] 05-02-2022 20:23-0500 Heart rate 104 /min DO Mario Pee Work Phone: [facility] 05-02-2022 20:23-0500 Respiratory rate 18 /min DO Mario Pee Work Phone: [facility] 05-02-2022 20:23-0500 SaO2% (BldA) [Mass fraction] 96 % DO Mario Pee Work Phone: [facility] 05-02-2022 20:23-0500 Systolic blood pressure 125 mm[Hg] DO Mario Pee Work Phone: [facility] 05-02-2022 16:20-0500 Inhaled oxygen flow rate 3 L/min DO Mario Pee Work Phone: [facility] 05-02-2022 06:52-0500 Body height 165.1 cm DO Mario Pee Work Phone: [facility] 05-02-2022 06:52-0500 Body mass index (BMI) [Ratio] 37.9 kg/m2 DO Mario Pee Work Phone: [facility] 05-02-2022 06:52-0500 Body weight 103.4 kg DO Mario Pee Work Phone: [facility] 04-24-2022 18:09-0500 Body height 165.1 cm DO Mario Pee Work Phone: [facility] 04-24-2022 18:09-0500 Body temperature 99.1 [degF] DO Mario Pee Work Phone: [facility] 04-24-2022 18:09-0500 Body weight 104.2 kg DO Mario Pee Work Phone: [facility] 04-24-2022 18:09-0500 Diastolic blood pressure 88 mm[Hg] DO Mario Pee Work Phone: [facility] 04-24-2022 18:09-0500 Heart rate 99 /min DO Mario Pee Work Phone: [facility] 04-24-2022 18:09-0500 Respiratory rate 19 /min DO Mario Pee Work Phone: [facility] 04-24-2022 18:09-0500 SaO2% (BldA) [Mass fraction] 96 % DO Mario Pee Work Phone: [facility] 04-24-2022 18:09-0500 Systolic blood pressure 124 mm[Hg] DO Mario Pee Work Phone: [facility] 04-17-2022 15:00-0500 Body height 165.1 cm Mario Pee Other [facility] Other 04-17-2022 15:00-0500 Body mass index (BMI) [Ratio] 38.77 kg/m2 Mario Pee Other [facility] Other 04-17-2022 15:00-0500 Body temperature 97.2 [degF] Mario Pee Other [facility] Other 04-17-2022 15:00-0500 Body weight 105.69 kg Mario Pee Other [facility] Other 04-17-2022 15:00-0500 Diastolic blood pressure 82 mm[Hg] Mario Pee Other [facility] Other 04-17-2022 15:00-0500 Respiratory rate 20 /min Mario Pee Other [facility] Other 04-17-2022 15:00-0500 SaO2% (BldA) [Mass fraction] 98 % Mario Pee Other [facility] Other 04-17-2022 15:00-0500 Systolic blood pressure 124 mm[Hg] Mario Pee Other [facility] Other 04-10-2022 08:44-0500 Body height 165.1 cm DO Mario Pee Work Phone: [facility] 04-10-2022 08:44-0500 Body temperature 98.3 [degF] DO Mario Pee Work Phone: [facility] 04-10-2022 08:44-0500 Body weight 105 kg DO Mario Pee Work Phone: [facility] 04-10-2022 08:44-0500 Diastolic blood pressure 82 mm[Hg] DO Mario Pee Work Phone: [facility] 04-10-2022 08:44-0500 Heart rate 80 /min DO Mario Pee Work Phone: [facility] 04-10-2022 08:44-0500 Respiratory rate 16 /min DO Mario Pee Work Phone: [facility] 04-10-2022 08:44-0500 SaO2% (BldA) [Mass fraction] 98 % DO Mario Pee Work Phone: [facility] 04-10-2022 08:44-0500 Systolic blood pressure 125 mm[Hg] DO Mario Pee Work Phone: [facility] 12-12-2021 14:45-0400 Body height 165.1 cm Mario Pee Other [facility] Other 12-12-2021 14:45-0400 Body mass index (BMI) [Ratio] 37.27 kg/m2 Mario Pee Other [facility] Other 12-12-2021 14:45-0400 Body temperature 96.9 [degF] Mario Pee Other [facility] Other 12-12-2021 14:45-0400 Body weight 101.61 kg Mario Pee Other [facility] Other 12-12-2021 14:45-0400 Diastolic blood pressure 80 mm[Hg] Mario Pee Other [facility] Other 12-12-2021 14:45-0400 Respiratory rate 20 /min Mario Pee Other [facility] Other 12-12-2021 14:45-0400 SaO2% (BldA) [Mass fraction] 98 % Mario Pee Other [facility] Other 12-12-2021 14:45-0400 Systolic blood pressure 124 mm[Hg] Mario Pee Other [facility] Other 10-12-2021 09:30-0400 Body height 165.1 cm Mario Pee Other [facility] Other 10-12-2021 09:30-0400 Body mass index (BMI) [Ratio] 37.27 kg/m2 Mario Pee Other [facility] Other 10-12-2021 09:30-0400 Body temperature 98.3 [degF] Mario Pee Other [facility] Other 10-12-2021 09:30-0400 Body weight 101.61 kg Mario Pee Other [facility] Other 10-12-2021 09:30-0400 Diastolic blood pressure 80 mm[Hg] Mario Pee Other [facility] Other 10-12-2021 09:30-0400 Respiratory rate 18 /min Mario Pee Other [facility] Other 10-12-2021 09:30-0400 Systolic blood pressure 110 mm[Hg] Mario Pee Other [facility] Other 09-27-2021 17:00-0400 Body height 165.1 cm Mario Pee Other [facility] Other 09-27-2021 17:00-0400 Body mass index (BMI) [Ratio] 38.1 kg/m2 Mario Pee Other [facility] Other 09-27-2021 17:00-0400 Body temperature 97.6 [degF] Mario Pee Other [facility] Other 09-27-2021 17:00-0400 Body weight 103.87 kg Mario Pee Other [facility] Other 09-27-2021 17:00-0400 Diastolic blood pressure 62 mm[Hg] Mario Pee Other [facility] Other 09-27-2021 17:00-0400 Respiratory rate 20 /min Mario Pee Other [facility] Other 09-27-2021 17:00-0400 SaO2% (BldA) [Mass fraction] 97 % Mario Pee Other [facility] Other 09-27-2021 17:00-0400 Systolic blood pressure 122 mm[Hg] Mario Pee Other [facility] Other 05-30-2021 18:15-0500 Body height 165.1 cm Mario Pee Other [facility] Other 05-30-2021 18:15-0500 Body mass index (BMI) [Ratio] 37.6 kg/m2 Mario Pee Other [facility] Other 05-30-2021 18:15-0500 Body temperature 97.3 [degF] Mario Pee Other [facility] Other 05-30-2021 18:15-0500 Body weight 102.51 kg Mario Pee Other [facility] Other 05-30-2021 18:15-0500 Diastolic blood pressure 82 mm[Hg] Mario Pee Other [facility] Other 05-30-2021 18:15-0500 Respiratory rate 20 /min Mario Pee Other [facility] Other 05-30-2021 18:15-0500 SaO2% (BldA) [Mass fraction] 97 % Mario Pee Other [facility] Other 05-30-2021 18:15-0500 Systolic blood pressure 122 mm[Hg] Mario Pee Other [facility] Other 05-02-2021 18:30-0500 Body height 165.1 cm Mario Pee Other [facility] Other 05-02-2021 18:30-0500 Body mass index (BMI) [Ratio] 36.77 kg/m2 Mario Pee Other [facility] Other 05-02-2021 18:30-0500 Body temperature 97.6 [degF] Mario Pee Other [facility] Other 05-02-2021 18:30-0500 Body weight 100.25 kg Mario Pee Other [facility] Other 05-02-2021 18:30-0500 Diastolic blood pressure 70 mm[Hg] Mario Pee Other [facility] Other 05-02-2021 18:30-0500 Respiratory rate 20 /min Mario Pee Other [facility] Other 05-02-2021 18:30-0500 SaO2% (BldA) [Mass fraction] 96 % Mario Pee Other [facility] Other 05-02-2021 18:30-0500 Systolic blood pressure 118 mm[Hg] Mario Pee Other [facility] Other Encounters Encounter Date Encounter Type Care Provider Facility Start: 05-07-2023 End: 05-07-2023 ambulatory Mario Pee Other [facility] Other Start: 05-07-2023 Telephone encounter Mario Pee [facility] Start: 03-21-2023 End: 03-21-2023 ambulatory Mario Pee Other [facility] Start: 03-21-2023 Telephone encounter Mario Pee [facility] Start: 02-13-2023 End: 02-13-2023 ambulatory Mario Pee Other [facility] Other Start: 02-13-2023 Telephone encounter Mario Pee [facility] Start: 01-29-2023 End: 01-29-2023 ambulatory Mario Pee Other [facility] Other Start: 01-29-2023 Office outpatient visit 15 minutes Mario Epe [facility] Start: 01-21-2023 End: 01-21-2023 ambulatory Mario Pee Other [facility] Start: 01-21-2023 Telephone encounter Mario Pee [facility] Start: 01-01-2023 End: 01-02-2023 ambulatory Erin Chavez Facility:[facility] Start: 01-01-2023 End: 01-01-2023 Patient encounter procedure Erin Chavez [facility] Start: 12-20-2022 End: 12-20-2022 ambulatory Mario Pee Other [facility] Start: 12-20-2022 Telephone encounter Mario Pee [facility] Start: 12-12-2022 End: 12-12-2022 ambulatory Mario Pee Other [facility] Start: 12-12-2022 Office outpatient visit 15 minutes Mario Pee [facility] Start: 11-22-2022 End: 11-23-2022 Emergency department patient visit DO Sonam Montoya Facility[facility] Start: 11-22-2022 End: 11-23-2022 Emergency department patient visit Sonam Montoya [facility] Start: 11-20-2022 End: 11-20-2022 ambulatory Mario Pee Other [facility] Start: 11-20-2022 Telephone encounter Mario Pee [facility] Start: 11-14-2022 End: 11-14-2022 ambulatory Mario Pee Other [facility] Start: 11-14-2022 Office outpatient visit 15 minutes Mario Pee [facility] Start: 10-15-2022 End: 10-15-2022 ambulatory Mario Pee Other [facility] Start: 10-15-2022 Office outpatient visit 25 minutes Mario Pee [facility] Start: 10-09-2022 End: 10-09-2022 ambulatory Mario Pee Other [facility] Start: 10-09-2022 Telephone encounter Mario Pee [facility] Start: 09-17-2022 End: 09-17-2022 ambulatory Mario Pee Other [facility] Start: 09-17-2022 Office outpatient visit 15 minutes Mario Pee [facility] Start: 09-17-2022 Telephone encounter Mario Pee [facility] Start: 08-13-2022 End: 08-14-[address] MARIO Cullen PEE Facility:[facility] Start: 08-12-2022 End: 08-13-[address] MARIO Cullen PEE Facility:[facility] Start: 08-09-2022 End: 08-09-2022 ambulatory Mario Pee Other [facility] Start: 08-09-2022 Telephone encounter Mario Pee [facility] Start: 07-08-2022 End: 07-08-2022 ambulatory Vi [place] Other [facility] Other Start: 07-08-2022 Telephone encounter Vi Easterwood [facility] Start: 06-17-2022 End: 06-17-2022 ambulatory Mario Pee Other [facility] Start: 06-17-2022 Telephone encounter Mario Pee [facility] Start: 06-14-2022 End: 06-14-2022 ambulatory Mario M. Pee Facility:[facility] Start: 06-14-2022 End: 06-14-2022 ambulatory DO Mario M. Pee Work Phone: [facility] Work Phone: Start: 06-14-2022 End: 06-14-2022 Departed Referred DO Mario Pee Work Phone: [facility] [place] Work Phone: Start: 06-07-2022 End: 06-07-2022 ambulatory Mario Pee Other [facility] Other Start: 06-07-2022 Telephone encounter Mario Pee [facility] Start: 05-09-2022 End: 05-09-2022 ambulatory Mario Pee Other [facility] Other Start: 05-09-2022 Telephone encounter Mario Pee [facility] Start: 05-06-2022 End: 05-06-2022 ambulatory Mario Pee Other [facility] Start: 05-06-2022 Telephone encounter Mario Pee [facility] Start: 05-02-2022 End: 05-03-2022 ambulatory Rell Garcia Facility:[facility] Start: 05-02-2022 End: 05-02-2022 Admission to same day surgery center DO Mario Pee Work Phone: [facility] [place] Start: 05-02-2022 End: 05-02-2022 ambulatory DO Mario M. Pee Work Phone: [facility] Work Phone: Start: 04-25-2022 Telephone encounter Mario Pee [facility] Start: 04-25-2022 End: 04-25-2022 Departed Referred DO Mario Pee Work Phone: [facility] [place] Start: 04-25-2022 End: 04-25-2022 [facility] [place] [facility] Start: 04-24-2022 End: 04-24-2022 Emergency department patient visit Arun Ervin Facility:[facility] [place] Start: 04-24-2022 End: 04-24-2022 Emergency department patient visit DO Maroi Pee Work Phone: [facility] Work Phone: Start: 04-23-2022 End: 04-23-2022 ambulatory Mario M. Pee Facility:[facility] [place] Start: 04-23-2022 End: 04-23-2022 Patient encounter procedure DO Mario Pee Work Phone: [facility] Work Phone: Start: 04-17-2022 End: 04-17-2022 ambulatory Mario Pee Other [facility] Other Start: 04-17-2022 Office outpatient visit 15 minutes Mario Pee [facility] Start: 04-17-2022 Telephone encounter Mario Pee [facility] Start: 04-16-2022 End: 04-16-2022 ambulatory Mario Pee Other [facility] Other Start: 04-16-2022 Telephone encounter Mario Pee [facility] Start: 04-10-2022 End: 04-10-2022 ambulatory Mario M. Pee Facility:[facility] [place] Start: 04-10-2022 End: 04-10-2022 ambulatory DO Mario M. Pee Work Phone: [facility] Work Phone: Start: 04-10-2022 End: 04-10-2022 Patient encounter procedure DO Mario Pee Work Phone: [facility] Start: 04-09-2022 End: 04-09-2022 ambulatory Mario Pee Other [facility] Other Start: 04-09-2022 Telephone encounter Mario Pee [facility] Start: 04-08-2022 End: 04-08-2022 ambulatory Mario Pee Other [facility] Other Start: 04-08-2022 Telephone encounter Mario Pee [facility] Start: 03-28-2022 End: 03-30-[address] MARTIN M PEE Facility:[facility] Start: 03-06-2022 End: 03-06-2022 ambulatory Mario Pee Other [facility] Other Start: 03-06-2022 Telephone encounter Mario Pee [facility] Start: 02-10-2022 End: 02-10-[address] MARTIN M PEE Facility:[facility] Start: 02-04-2022 End: 02-04-2022 ambulatory Mario Pee Other [facility] Other Start: 02-04-2022 Telephone encounter Mario Pee [facility] Start: 01-29-2022 End: 01-29-2022 ambulatory Mario Pee Other [facility] Other Start: 01-29-2022 Telephone encounter Mario Pee [facility] Start: 01-28-2022 End: 01-28-[address] MARTIN M PEE Facility:[facility] Start: 12-25-2021 End: 12-25-2021 ambulatory Mario Pee Other [facility] Other Start: 12-25-2021 Telephone encounter Mario Pee [facility] Start: 12-12-2021 End: 12-12-2021 ambulatory Mario Pee Other [facility] Other Start: 12-12-2021 Office outpatient visit 15 minutes Mario Pee [facility] Start: 11-26-2021 End: 11-26-2021 ambulatory Mario Pee Other [facility] Other Start: 11-26-2021 Telephone encounter Mario Pee [facility] Start: 11-21-2021 End: 11-21-2021 ambulatory Mario Pee Other [facility] Other Start: 11-21-2021 Telephone encounter Mario Pee [facility] Start: 11-05-2021 End: 11-05-2021 ambulatory Mario Pee Other [facility] Other Start: 11-05-2021 Telephone encounter Mario Pee [facility] Start: 10-29-2021 End: 10-29-[address] MARIO M PEE Facility: Start: 10-23-2021 End: 10-23-2021 ambulatory Maroi Pee Other [facility] Other Start: 10-23-2021 Telephone encounter Mario Pee [facility] Start: 10-19-2021 End: 10-19-2021 ambulatory Mario Pee Other [facility] Other Start: 10-19-2021 Telephone encounter Mario Pee [facility] Start: 10-12-2021 End: 10-12-2021 ambulatory Mario Pee Other [facility] Other Start: 10-12-2021 Office outpatient visit 15 minutes Mario Pee [facility] Start: 10-12-2021 Telephone encounter Mario Pee [facility] Start: 10-01-2021 End: 10-01-2021 ambulatory Mario Pee Other [facility] Other Start: 10-01-2021 Telephone encounter Mario Pee [facility] Start: 09-27-2021 End: 09-27-2021 ambulatory Mario Pee Other [facility] Other Start: 09-27-2021 Office outpatient visit 15 minutes Mario Pee [facility] Start: 09-18-2021 End: 09-18-2021 ambulatory Mario Pee Other [facility] Other Start: 09-18-2021 Telephone encounter Mario Pee [facility] Start: 09-10-2021 End: 09-10-2021 ambulatory Mario Pee Other [facility] Other Start: 09-10-2021 Telephone encounter Mario Pee [facility] Start: 09-05-2021 End: 09-05-2021 Patient encounter procedure Erin Chavez [facility] Start: 08-13-2021 End: 08-13-2021 ambulatory Mario Pee Other [facility] Other Start: 08-13-2021 Telephone encounter Mario Pee [facility] Start: 08-01-2021 End: 08-01-2021 ambulatory Mario Pee Other [facility] Other Start: 08-01-2021 Telephone encounter Mario Pee [facility] Start: 07-06-2021 End: 07-06-2021 ambulatory Vi Easterwood Other [facility] Other Start: 07-06-2021 Telephone encounter Vi Easterwood [facility] Start: 06-18-2021 End: 06-18-2021 ambulatory Mario Pee Other [facility] Other Start: 06-18-2021 Telephone encounter Mario Pee [facility] Start: 06-08-2021 End: 06-08-2021 ambulatory Mario Pee Other [facility] Other Start: 06-08-2021 Telephone encounter Mario Pee [facility] Start: 05-30-2021 End: 05-30-2021 ambulatory Mario Pee Other [facility] Other Start: 05-30-2021 Office outpatient visit 15 minutes Mario Pee [facility] Start: 05-21-2021 End: 05-21-2021 ambulatory Mario Pee Other [facility] Other Start: 05-21-2021 Telephone encounter Mario Pee [facility] Start: 05-09-2021 End: 05-09-2021 ambulatory Mario Pee Other [facility] Other Start: 05-09-2021 Telephone encounter Mario Pee [facility] Start: 05-08-2021 End: 05-08-2021 ambulatory Mario Pee Other [facility] Other Start: 05-08-2021 Telephone encounter Mario Pee [facility] Start: 05-02-2021 End: 05-02-2021 ambulatory Mario Pee Other [facility] Other Start: 05-02-2021 Office outpatient visit 15 minutes Mario Pee [facility] Procedures Date Procedure Procedure Detail Performing Clinician Start: 06-14-2022 Urine culture DO Mario R uggles Work Phone: Start: 05-02-2022 Antibody screen Mario gomes Comment on above: Result Comment: PERF ORMED BY: [facility] [place] [address] PATHOLOGIST INDEPENDENT BEAUTY CONSULTANT LEV HERNÁNDEZ M.D. Start: 05-02-2022 Total hysterectomy v ia vaginal approach DO Mario Pee Work Phone: Start: 04-23-2022 SARS Antigen (LFIA) DO Mario Pee Work Phone: Start: 04-10-2022 Antibody screen Mario gomes Comment on above: Order Comment: Date of Surgery: [id number] Result Comment: PERF ORMED BY: [facility] [address] [place] [address] PATHOLOGIST INDEPENDENT BEAUTY CONSULTANT LEV HERNÁNDEZ M.D. Start: 04-10-2022 Urine culture [...] Date Care Activity Detail Author Start: 05-02-2022 [facility] Start: 04-25-2022 Total hysterectomy v ia vaginal approach OR Vag Hyster Lap Assist TLH/LAVH (Not Applicable) [facility] Start: 04-24-[address] [facility] Start: 04-24-2022 Hepatic function panel [facility] Start: 04-24-2022 Lipase measurement [facility] Start: 04-24-2022 [facility] Bacteria identified in Urine by Culture [facility] Bacteria identified in Urine by Culture [facility] Patient referral [facility] Work Phone: Immunizations Immunization Date Immunization Notes Care Provider Fa jacinta NEGATED: Highlighted row has not occurred!05-16-2021 SARS-CoV-2 (COVID-19) Ad26 vaccine, recombinant Erin Lue [facility] Payers Date Payer Category Payer Self-pay [id number] 1990 Unknown [id number] 1989 Unknown [id number] [id number] 1989 Unknown [id number] 2..840.1.521866.3.579.2.593 1989 Unknown [id number] 2..840.1.309521.3.579.2.593 1989 Unknown [id number] 2..840.1.303786.3.579.2.593 1989 Unknown [id number] 2.16.840.1.828426.3.579.2.593 1989 Unknown [id number] 2.16.840.1.218846.3.579.2.593 1989 Unknown [id number] 2.16.840.1.503581.3.579.2.727 1989 Unknown [id number] 2.16.840.1.047782.3.579.2.727 1960 Medicaid [id number] 1960 Unknown [id number] 2.1 [id number] Unknown Regular Auto/Liability [id number] Unknown [id number] [id number] Unknown [id number] 2.16.840.1.186082.3.579.2.531 Unknown [id number] 2.16.840.1.871436.3.579.2.531 Unknown [id number] 2.16.840.1.784402.3.579.2.531 Unknown [id number] 2.16.840.1.129846.3.579.2.531 Unknown [id number] [id number] Social History Date Type Detail Facility Start: 05-16-2021 End: 05-02-2022 Tobacco smoking status Never smoked tobacco (finding) [facility] Other Tobacco smoking status Never [facility] Sex Assigned At Female [facility] [place] Other Start: 1990 Sex Assigned At Female [facility] Goals Date Patient Goal Desired Activity /State Functional Status Date Assessment Result Facility 11-22-2022 Functional Status N/A [facility] Clinical Notes 03-06-2021 to 05-07-2023 Note Date & Type Note Facility 05-07-2023 Evaluation note Encounter Date Diagnosis Assessment Notes Apr, Anxiety (ICD-10 - F41.9) [facility] Other 10-26-2023 Evaluation note* Encounter Date Diagnosis Assessment Notes Treatment Notes Treatment Clinical Notes Jan, Anxiety (ICD-10 - F41.9) [facility] Other 10-11-2023 Evaluation note* Encounter Date Diagnosis Assessment Notes Treatment Notes Treatment Clinical Notes Jan, BMI 37.0-37.9, adult (ICD-10 - Z68.37) [facility] - eRX sent. We did discuss that she needs to do a better job with the monitoring of her diet. If her weight loss does not improve, we must consider withholding medication. She voices agreement and understanding. [facility] Other 10-03-2023 Evaluation note* Encounter Date Diagnosis Assessment Notes Treatment Notes Treatment Clinical Notes Jan, Anxiety (ICD-10 - F41.9) [facility] Other 09-01-2023 Evaluation note* Encounter Date Diagnosis Assessment Notes Treatment Notes Treatment Clinical Notes Dec, Anxiety (ICD-10 - F41.9) [facility] Other 08-24-2023 Evaluation note* Encounter Date Diagnosis Assessment Notes Treatment Notes Treatment Clinical Notes Nov, BMI 37.0-37.9, adult (ICD-10 - Z68.37) [facility] -E Rx sent. No other change today. We will recheck in 1 month. [facility] Other 08-05-2023 Hospital Discharge instructions Patient Education [...] Follow these instructions at home: Medicines Take ibdo-nkt-vikpnct and prescription medicines only as told by your health care provider. Ask your health care provider if the medicine prescribed to you: ?Requires you to avoid driving or using machinery. ?Can cause constipation. You may need to take these actions to prevent or treat constipation: ?Drink enough fluid to keep your urine pale yellow. ?Take egis-tgs-vsbipxj or prescription medicines. ?Eat foods that are [...] is important. Where to find more information [employer]: www.acog.org Office [...] provider. Document Revised: 11/08/2020 Document Reviewed: 11/08/2020 [employer] Patient Education 2022 XIPWIRE. 11/23/2022 01:20:40 Laparoscopic Lysis of Abdominal Adhesions [...] including vitamins, herbs, eye drops, creams, and khnr-fdc-ewkfqtk medicines. Any problems you or family members [...] provider tells you to take them. Taking ywxk-prp-xfyuoxm medicines, vitamins, herbs, and supplements. General instructions [...] provider. Document Revised: 12/15/2020 Document Reviewed: 12/15/2020 [employer] Patient Education 2022 XIPWIRE. 11/23/2022 01:20:40 Adhesions, Czga-ub-Spcu Adhesions Adhesions are strings of tissue that [...] needed. Follow these instructions at home: Take nifq-mko-vbuzlxv and prescription medicines only as told by [...] Treatment may include medicines and surgery. Take cwyc-rve-dpjpmso and prescription medicines only as told by your doctor. This information is not intended to replace advice given to you by your health care provider. Make sure you discuss any questions you have with your health care provider. Document Revised: 12/15/2020 Document Reviewed: 12/15/2020 [employer] Patient Education 2022 XIPWIRE. 11/23/2022 01:20:40 Abdominal Pain, Adult, Ehri-yl-Ksev Abdominal Pain, Adult Many things can cause belly (abdominal) pain. Most times, belly pain is not dangerous. Many cases of belly pain can be watched and treated at home. Sometimes, though, belly pain is serious. Your doctor will try to find the cause of your belly pain. Follow these instructions at home: Medicines Take xpyd-fko-glqkwke and prescription medicines only as told by [...] your belly pain for any changes. Take vqzp-una-yhomndh and prescription medicines only as told by [...] provider. Document Revised: 08/16/2019 Document Reviewed: 08/16/2019 [employer] Patient Education 2022 XIPWIRE. Follow Up Care 11/22/2022 19:01:50 With:MARIO GLASGOW Address: [address] [address]- Business (1) When:11/26/2022 [facility]07-27-2023 Evaluation note* Encounter Date Diagnosis Assessment Notes Treatment Notes Treatment Clinical Notes Oct, BMI 37.0-37.9, adult (ICD-10 - Z68.37) [facility] - eRX sent. Call with any concerns. [facility] Other 06-27-2023 Evaluation note* Encounter Date Diagnosis [...] We will see patient back for follow-up. [facility] Other 05-30-2023 Evaluation note* Encounter Date Diagnosis Assessment Notes Treatment Notes Treatment Clinical Notes August, BMI 39.0-39.9,adult (ICD-10 - Z68.39) [facility] - e[facility] sent. Call with any concern. [facility] Other 05-30-2023 Evaluation note* Encounter Date Diagnosis Assessment Notes Treatment Notes Treatment Clinical Notes August, BMI 39.0-39.9,adult (ICD-10 - Z68.39) [facility] Other 12-28-2022 Evaluation note* Encounter Date Diagnosis [...] year, with out any concerns with anesthesia. [facility] Other 09-06-2022 Evaluation note* Encounter Date Diagnosis Assessment Notes Treatment Notes Treatment Clinical Notes Dec, BMI 36.0-36.9,adult (ICD-10 - Z68.36) [facility] Other 08-24-2022 Evaluation note* Encounter Date Diagnosis [...] third and final prescription of the Adipex. [facility] Other 08-03-2022 Evaluation note* Encounter Date Diagnosis Assessment Notes Treatment Notes Treatment Clinical Notes Nov, BMI 36.0-36.9,adult (ICD-10 - Z68.36) [facility] Other 07-05-2022 Evaluation note* Encounter Date Diagnosis Assessment Notes Treatment Notes Treatment Clinical Notes Oct, Conjunctivitis (ICD9-CM - 372.30) [facility] Other 06-24-2022 Evaluation note* Encounter Date Diagnosis Assessment Notes Treatment Notes Treatment Clinical Notes Sep, BMI 37.0-37.9, adult (ICD-10 - Z68.37) [facility] sent. Lengthy discussion regarding side effects as well as possible outcomes of the medication. We will see her back in 1 month. Patient to call with any concerns. [facility] Other 06-24-2022 Evaluation note* Encounter Date Diagnosis Assessment Notes Treatment Notes Treatment Clinical Notes Sep, BMI 37.0-37.9, adult (ICD-10 - Z68.37) [facility] Other 06-13-2022 Evaluation note* Encounter Date Diagnosis Assessment Notes Treatment Notes Treatment Clinical Notes Sep, BMI 38.0-38.9,adult (ICD-10 - Z68.38) [facility] Other 06-09-2022 Evaluation note* Encounter Date Diagnosis [...] psychiatric diagnoses/as well as her seizure concerns. [facility] Other 04-27-2022 Hospital Discharge instructions Patient Education [...] fried and sweet foods. General instructions Take swfa-sjq-zrceaqi and prescription medicines only as told by [...] 02/01/2010 Document Revised: 07/29/2019 Document Reviewed: 04/23/2018 [employer] Patient Education 2019 XIPWIRE. [facility] 02-09-2022 Evaluation note* Encounter Date Diagnosis Assessment [...] 2mg at that time of refill need. [facility] Other 01-18-2022 Evaluation note* Encounter Date Diagnosis Assessment Notes Treatment Notes Treatment Clinical Notes Apr, Dysuria (ICD-10 - R30.0) [facility] Other 01-12-2022 Evaluation note* Encounter Date Diagnosis [...] next week. She voices agreement and understanding. [facility] Other 11-17-2021 NoteHNO ID: [id number] Author: Rosalie Haile MD Service: ? Author Type: Physician Type: Progress Notes Filed: 03/08/2021 8:38 PM Note Text: [facility] - General Progress Note SULLY ENRIQUEZ : 1990 AGE: 31 SEX: F CSN: [id number] [facility]: [facility] LOCATION: [facility] ATTENDING PHYSICIAN: Rosalie Haile M.D. DATE [...] follow up. Rosalie Haile M.D. Internal Medicine ESPINOZA:[id number] NoteHNO ID: [id number] Author: Saravanan Yancey MD Service: Neurology General [...] MD DPhil Neurology Resident, PGY-4 March 07, 2021[facility] NoteHNO ID: [id number] Author: JULITO Lino Service: Care Management Author Type: [place] Type: Care Mgt Initial Assessment Filed: 03/06/2021 4:04 PM Note Text: CARE MANAGEMENT: ASSESSMENT AND DISCHARGE PLAN SERVICE DATE: March 06, 2021 SERVICE TIME: 4:00 PM PRIMARY CARE PHYSICIAN: Roxie Strickland NP ADMISSION STATUS: Inpatient Needs Prior to Discharge: None MEDICAL: [facility] MEDICAID Patient/Bark Peeler Stated Goals: To have reduction in symptoms;To return home to life as it was Health Insurance: [employer] Health Issues Impacting Discharge Plan: (seizure, headache, CP) Last Discharge Date: N/A Is this Within the Past 30 days? Last discharge within 30 days: No Advance Directive: Current Advance Directive: None Manager Math Attempted to Assist with AD Completion: Yes [...] None Has the Patient Been in a Fci Facility in the Past 30 days?: No SOCIAL: Living Arrangements: Home Lives With: Partner;Daughter;Son Financial Resources: Employed Primary Contact: Extended Emergency Contact Information Primary Emergency Contact: jamari strong Address: [address] [place] [address] Mobile Relation: Significant other Secondary Emergency Contact: [...] Completely I feel financially burdened by my yab-lt-wbsirs expenses for my prescription medication:: 0 - Disagree Completely Risk Score: 0 Patient is categorized as: Low risk < 2 Are you interested in bedside delivery of your medications? No Is Patient Psychosocially Complex?: No ASSESSMENT AND PLAN: Medical Needs: Medical Needs: None Psychosocial Needs: Psychosocial Needs: Mental Health Diagnosis Mental Health Information: Coversion d/o, anxiety FREEDOM OF CHOICE EXPLAINED: [place] of Choice Given: No Reason Not Given: No placements necessary POTENTIAL TRANSITION PLANS Home Pt presents to ED s/p seizer, headache, CP, Hx diabetes (pt adamant she does not have DM), anxiety, epilepsy, conversion disorder. Independent of ADLS and iADLS, [place] with Jamari, 13 y/o dtr and 10 y/o son. Pt reports she is employed and drives. Does not utilize any DME, retirement or community resources. No skilled needs identified at this time. DC transportation will be provided by Jamari [phone]. SIGNATURE: JULITO Lino PATIENT NAME: Sully Enriquez DATE: March 06, 2021 TIME: 4:00 PM PAGER/CONTACT #: [phone] HospitalEvaluation + Plan note No data available for this section [facility] evaluation noteNo InformationNort [facility] Other Evaluation noteNo assessment information available [facility] Work Phone: Histbzf general Narrative - Reported* Type Description Date [...] dif ferent times Hospitalization History Seizures 02/2021 [facility] [place] Other History general Narrative - Reported* Type [...] dif ferent times Hospitalization History Seizures 02/2021 [facility] Other Hisdqol general Narrative - ReportedNortCarefx Other History general Narrative - Reported* Type [...] dif ferent times Hospitalization History Seizures 02/2021 [facility] Other Hospital Discharge instructions Additional Instructions DISCHARGE [...] FOLLOW UP -[Please call the office at ([phone]) to make follow appointment before leaving the hospital]. -[2 Weeks] [ ][facility] Work Phone: Hospital Discharge instructions No data available for this section [facility] progress note No data available for this section [facility] for visit Narrative1 month Follow up, ER visit [facility] [facility] Other Summary Purpose Family History Relationship Condition [...] time Consult and treat abdominal pain - [facility] x 2 Diagnosis 1 Abdominal pain (R10. 9) Referral Organization [facility] Family Sekou Patterson Referring Provider First Name Mario Referring Provider Last Name Pee Referring Provider Specialty Family Prac cody Referred Organization Unknown Facility Referred Provider Sumeet Haq Referred Provider Specialty Surgery Referral Priority Routine General Notes Renetta Damico 2022 08:55:03 AM > Sumeet Haq DO, phone [phone]. [facility] recommended Additional Source Comments INFORMATION SOURCE (unrecogn ized section and content) DATE CREATED AUTHOR [facility]11/2021 [facility] DATE CREATED AUTHOR AUTHOR'S ORGANIZ ATION 06/25/2022 [facility] DATE CREATED AUTHOR AUTHOR'S ORGANIZ ATION 08/15/2022 [facility] DATE CREATED AUTHOR AUTHOR'S ORGANIZ ATION 02/15/2023 [facility] REASON FOR VISIT (unrecogniz ed section and [...] month Follow up, [facility] bellvueRefill XanaxClinical Acute Illnessadipex concernsAdipex to Alt Pharmacyrefill xanax1 month Follow up, is february 23!RefillsRefill- adipexClinical Acute Medicinerefill xanaxRefillsrefill tizandinerefill- xanaxRequesting return callPreSurgical Clearance - Hysterectomy 04/25/[address] Garcia, PreSurgical testing done at [facility]- this was completed 04/10/22, will start message to fax note once complete/ and text patientpresurg clearanceT[facility] follow uprefill zanaflexrefill xanaxRefill- XanaxUpdate on [...] jerzy, does say she has been seeing [facility] [place] for counseling- and she really likes her counselor, sees her weekly-, needs xanax, singulair to [facility] (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 [employer] [facility]. provides no warranty or guarantee of the accuracy or completeness of information in this document.
--- NOTE | 2023-05-10 10:40 | ED_ITS ---
HPI - General Adult General Chief complaint: Recheck/Abnormal Lab/Rx Stated complaint: DRESSING CHANGE Time Seen by Provider: 05/10/23 10:18 Source: patient and family Mode of arrival: Wheelchair Limitations: no limitations History of Present Illness HPI narrative: Patient fell in early April and was found to have fracture at the distal tip of the left fibula and at the proximal phalanx of the 1st toe. She was initially evaluated in the ED and placed in a walking boot. She did not tolerate that. She followed up with Dr Chris and was switched to a splint. She said that last week she removed some of the jf wrap because it felt tight like it was digging into me and subsequently fell, possibly injuring the left ankle again. She came to [facility] this morning for a CT scan of her ankle and then came to the ED to see if we could replace her splint. The CT scan has not yet been read. Related Data Home Medications Medication Instructions Recorded Confirmed tizanidine 4 mg tablet 4 mg PO BEDTIME muscle spasticity 11/17/22 05/10/23 alprazolam 1 mg PO BID PRN anxiety 12/24/22 05/10/23 hydrocodone 5 mg-acetaminophen 325 1 tab PO Q4H PRN pain 05/10/23 05/10/23 mg tablet montelukast 10 mg tablet 10 mg PO DAILY 05/10/23 05/10/23 Previous Rx's Medication Instructions Recorded tramadol 50 mg tablet 50 mg PO Q8H PRN pain 3 days #9 04/27/23 tabs Allergies Allergy/AdvReac Type Severity Reaction Status Date / Time nitrofurantoin Allergy Severe itching Verified 05/10/23 10:17 [From Macrobid] azithromycin [From Zithromax] Allergy Unknown Verified 05/10/23 10:17 ciprofloxacin [From Cipro] Allergy Unknown Hives Verified 05/10/23 10:17 ketorolac [From Toradol] Allergy Unknown Verified 05/10/23 10:17 metoclopramide [From Reglan] Allergy Unknown Verified 05/10/23 10:17 Penicillins Allergy Unknown Verified 12/24/22 09:50 zolpidem [From Ambien] AdvReac agitation Verified 05/10/23 10:17 [facility] Medical History (Updated 05/10/23 @ 10:49 by Gaudenico Martinez) Kidney stones ?N20.0 - Calculus of kidney (ICD-10) POTS (postural orthostatic tachycardia syndrome) ?G90.A - Postural orthostatic tachycardia syndrome [POTS] (ICD-10) Migraines ?G43.909 - Migraine, unspecified, not intractable, without status migrainosus (ICD-10) Seizure ?R56.9 - Unspecified convulsions (ICD-10) History of anxiety ?Z86.59 - Personal history of other mental and behavioral disorders (ICD-10) History of depression ?Z86.59 - Personal history of other mental and behavioral disorders (ICD-10) History of seizure ?Z87.898 - Personal history of other specified conditions (ICD-10) Surgical History (Updated 01/22/23 @ 06:55 by Xochitl Weaver) History of colonoscopy ?Z98.890 - Other specified postprocedural states (ICD-10) History of nephrostomy History of bunionectomy of right great toe ?Z98.890 - Other specified postprocedural states (ICD-10) H/O LEEP ?Z98.890 - Other specified postprocedural states (ICD-10) S/P laparoscopy ?Z98.890 - Other specified postprocedural states (ICD-10) Hx of cystoscopy ?Z98.890 - Other specified postprocedural states (ICD-10) History of hysterectomy ?Z90.710 - Acquired absence of both cervix and uterus (ICD-10) History of tubal ligation ?Z98.51 - Tubal ligation status (ICD-10) Family History (Updated 01/14/23 @ 12:43 by Soraida Blount) Father Family history of COPD (chronic obstructive pulmonary disease) Family history of cancer Family history of myocardial infarction Social History (Updated 01/22/23 @ 06:57 by Xochitl Weaver) Within the past year, how often did you have a drink containing alcohol: monthly or less Smoking status: Never smoker Non-prescribed substance use: denies use Highest level of school completed/degree received: some college, no degree Exam Narrative Exam Narrative: Nurses notes and vital signs reviewed and patient is not hypoxic. afebrile General: Well-appearing and in no apparent distress. Skin: Warm, dry, no pallor noted. No rash. Cardiovascular: Normal Peripheral Perfusion. Respiratory: No accessory muscle use or respiratory distress. Musculoskeletal: Splint and all wrappings removed. No deformity noted. Patient has pain in the left ankle with any attempted movement of the ankle. She also has pain and tenderness to the left 1st toe. No erythema or skin change noted. no left calf or popliteal tenderness, no left lower extremity edema/swelling Neurological: A&O x4. No cranial nerve dysfunction observed. No truncal ataxia. Moves all extremities. Sensation intact. Psychiatric: Cooperative and interactive. Normal mood and affect. Constitutional Vital Signs, click to edit/add: Last Vital Signs Temp 98.6 F 05/10/23 10:14 Pulse 89 05/10/23 10:14 Resp 18 05/10/23 10:14 BP 92/71 05/10/23 10:14 Pulse Ox 98 05/10/23 10:14 O2 Del Method Room Air 05/10/23 10:14 Course Vital Signs Vital signs: Vital Signs Temperature 98.6 F 05/10/23 10:14 Pulse Rate 89 05/10/23 10:14 Respiratory Rate 18 05/10/23 10:14 Blood Pressure 92/71 05/10/23 10:14 Pulse Oximetry 98 05/10/23 10:14 Oxygen Delivery Method Room Air 05/10/23 10:14 Temperature 98.6 F 05/10/23 10:14 Pulse Rate 89 05/10/23 10:14 Respiratory Rate 18 05/10/23 10:14 Blood Pressure 92/71 05/10/23 10:14 Pulse Oximetry 98 05/10/23 10:14 Oxygen Delivery Method Room Air 05/10/23 10:14 Medical Decision Making MDM Narrative Medical decision making narrative: I removed the existing splint. I then placed a new posterior left lower leg splint extending beyond the toes and to the left calf. patient neurovascularly intact distally afterward. I called to ask [facility] to read the patient's left ankle CT, which was not ordered stat. CT did not reveal any new fractures. Patient informed of this. Patient will call Dr Chris's office on Friday to discuss follow up. Imaging Data ct ankle: Radiologist's impression: IMPRESSION: 1. There is an acute comminuted intra-articular fracture of the mid and distal aspect of the proximal phalanx of the first toe with extension to the articular surface at the IP joint. 2. There is also an acute comminuted fracture of the distal fibula as described above. 3. No additional fracture in the foot or ankle. The tarsometatarsal alignment appears intact. Electronically authenticated by: SHANT AVILEZ Date: 05/10/2023 11:02 Dictated By: Shant Avilez M.D. Discharge Plan Discharge Chief Complaint: Recheck/Abnormal Lab/Rx Clinical Impression: Closed fracture of left great toe, Closed fracture of distal end of left fibula Patient Disposition: Home, Self-Care Time of Disposition Decision: 11:09 Prescriptions / Home Meds: No Action tizanidine 4 mg tablet 4 mg PO BEDTIME tramadol 50 mg tablet 50 mg PO Q8H PRN (Reason: pain) 3 Days Qty: 9 0RF hydrocodone-acetaminophen 5-325 mg tablet 1 tab PO Q4H PRN (Reason: pain) montelukast 10 mg tablet 10 mg PO DAILY alprazolam [Xanax] 1 mg PO BID PRN (Reason: anxiety) Instructions: Ankle Fracture (ED), Toe Fracture (ED) Stand Alone Forms: Portal Instructions Referrals: Conrado Chris DPM [Physician] - As soon as possible
== END 2023-05-10 11:17 | disposition home or self-care (01) ==
PROVIDERS: Emergency Provider Emergency Medicine; PCP Family Medicine
DX: S90.32XA Contusion of left foot, initial encounter (principal); S92.415A Nondisplaced fracture of proximal phalanx of left great toe, initial encounter for closed fracture; S82.832A Other fracture of upper and lower end of left fibula, initial encounter for closed fracture; Z79.899 Other long term (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 therapy; G90.A Postural orthostatic tachycardia syndrome [POTS]; Z86.59 Personal history of other mental and behavioral disorders; Z87.442 Personal history of urinary calculi; Z98.890 Other specified postprocedural states; Z90.710 Acquired absence of both cervix and uterus; Z98.51 Tubal ligation status
CPT/HCPCS: 29515; 73700; 99281

== ENCOUNTER 2023-07-25 18:40 | Emergency (ER) | payer OTHER, SELFPAY ==
[2023-07-25 18:45] VITALS: BP 140/92; PULSE 88; TEMP 36.8; O2SAT 98; BMI 35.6
--- NOTE | 2023-07-25 19:38 | ED.GENADUL1 ---
HPI HPI - General Adult General Chief complaint: Headache Stated complaint: headache Time Seen by Provider: 07/25/23 19:00 Source: patient Mode of arrival: walk-in Limitations: no limitations History of Present Illness HPI narrative: Patient with nausea, vomiting and headache that began a few days ago. She is concerned that she might have the flu . Patient occasionally gets migraines =- had them more frequently when she was younger but now gets a few a year. Does not take anything specific for migraines . She has not been able to keep anything down for the last 12 hours. SHe took Zofran around 3pm without any improvement. Denies chance of . She admits to some upper mid abdominal cramping that began a few hours after the vomiting began. No recent travel or known ill exposures. Related Data Home Medications ?Medication ?Instructions ?Recorded ?Confirmed tizanidine 4 mg tablet 4 mg PO BEDTIME muscle spasticity 11/17/22 05/10/23 alprazolam 1 mg PO BID PRN anxiety 12/24/22 05/10/23 hydrocodone 5 mg-acetaminophen 325 1 tab PO Q4H PRN pain 05/10/23 05/10/23 mg tablet montelukast 10 mg tablet 10 mg PO DAILY 05/10/23 05/10/23 Previous Rx's ?Medication ?Instructions ?Recorded tramadol 50 mg tablet 50 mg PO Q8H PRN pain 3 days #9 04/27/23 tabs Allergies Allergy/AdvReac Type Severity Reaction Status Date / Time nitrofurantoin Allergy Severe itching Verified 05/10/23 10:17 [From Macrobid] azithromycin [From Zithromax] Allergy Unknown Verified 05/10/23 10:17 ciprofloxacin [From Cipro] Allergy Unknown Hives Verified 05/10/23 10:17 ketorolac [From Toradol] Allergy Unknown Verified 05/10/23 10:17 metoclopramide [From Reglan] Allergy Unknown Verified 05/10/23 10:17 Penicillins Allergy Unknown Verified 12/24/22 09:50 zolpidem [From Ambien] AdvReac agitation Verified 05/10/23 10:17 Opioid HPI Opioid Management Most Recent Opioid Data: Last Pain Scale 7 07/25/23 20:05 PFSH PFSH Medical History (Updated 07/25/23 @ 20:39 by Gaudencio Martinez) Kidney stones ?N20.0 - Calculus of kidney (ICD-10) POTS (postural orthostatic tachycardia syndrome) ?G90.A - Postural orthostatic tachycardia syndrome [POTS] (ICD-10) Migraines ?G43.909 - Migraine, unspecified, not intractable, without status migrainosus (ICD-10) Seizure ?R56.9 - Unspecified convulsions (ICD-10) History of anxiety ?Z86.59 - Personal history of other mental and behavioral disorders (ICD-10) History of depression ?Z86.59 - Personal history of other mental and behavioral disorders (ICD-10) History of seizure ?Z87.898 - Personal history of other specified conditions (ICD-10) Surgical History (Updated 01/22/23 @ 06:55 by Xochitl Weaver) History of colonoscopy ?Z98.890 - Other specified postprocedural states (ICD-10) History of nephrostomy History of bunionectomy of right great toe ?Z98.890 - Other specified postprocedural states (ICD-10) H/O LEEP ?Z98.890 - Other specified postprocedural states (ICD-10) S/P laparoscopy ?Z98.890 - Other specified postprocedural states (ICD-10) Hx of cystoscopy ?Z98.890 - Other specified postprocedural states (ICD-10) History of hysterectomy ?Z90.710 - Acquired absence of both cervix and uterus (ICD-10) History of tubal ligation ?Z98.51 - Tubal ligation status (ICD-10) Family History (Updated 01/14/23 @ 12:43 by Soraida Blount) Father Family history of COPD (chronic obstructive pulmonary disease) Family history of cancer Family history of myocardial infarction Social History (Updated 01/22/23 @ 06:57 by Xochitl Weaver) Within the past year, how often did you have a drink containing alcohol: monthly or less Smoking status: Never smoker Non-prescribed substance use: denies use Highest level of school completed/degree received: some college, no degree Exam Narrative Exam Narrative: Nurses notes and vital signs reviewed and patient is not hypoxic. afebrile General: Well-appearing and in no apparent distress. Skin: Warm, dry, no pallor noted. No rash. Head: Normocephalic, atraumatic. Neck: Supple, non-tender. No cervical lymphadenopathy. No meningismus Eye: Pupils are equal, round and EOMI. No scleral icterus. Ears, Nose, Mouth, and Throat: Oral mucosa is dry Cardiovascular: Regular Rate and Rhythm without murmur, gallop or rub. Respiratory: No accessory muscle use or respiratory distress. Lungs are clear to auscultation, no wheezing, rales or rhonchi Back: No CVA tenderness Musculoskeletal: normal ROM, no calf or popliteal tenderness, no lower extremity edema/swelling GI: Abdomen is soft, non-distended. Normal bowel sounds. Mid abdominal and epigastric tenderness to palpation, mild. No rebound, guarding, or rigidity noted. Neurological: A&O x4. No cranial nerve dysfunction observed. No truncal ataxia. Moves all extremities. Sensation intact. Psychiatric: Cooperative and interactive. Normal mood and affect. Constitutional Vital Signs, click to edit/add: Last Vital Signs Temp 98.3 F 07/25/23 18:45 Pulse 88 07/25/23 18:45 Resp 18 07/25/23 18:45 BP 140/92 H 07/25/23 18:45 Pulse Ox 98 07/25/23 18:45 O2 Del Method Room Air 07/25/23 18:45 Course Vital Signs Vital signs: Vital Signs Temperature 98.3 F 07/25/23 18:45 Pulse Rate 88 07/25/23 18:45 Respiratory Rate 18 07/25/23 18:45 Blood Pressure 140/92 H 07/25/23 18:45 Pulse Oximetry 98 07/25/23 18:45 Oxygen Delivery Method Room Air 07/25/23 18:45 Temperature 98.3 F 07/25/23 18:45 Pulse Rate 88 07/25/23 18:45 Respiratory Rate 18 07/25/23 18:45 Blood Pressure 140/92 H 07/25/23 18:45 Pulse Oximetry 98 07/25/23 18:45 Oxygen Delivery Method Room Air 07/25/23 18:45 Medical Decision Making MDM Narrative Medical decision making narrative: The patient was swabbed for COVID and influenza. Peripheral IV was ordered to be established and the patient did receive a liter of normal saline IV fluid and meds for her headache. She is allergic to several medications we typically use for headaches and therefore was given IV Zofran, IV Solu-Medrol and IV Dilaudid. Blood ordered to be drawn and sent for testing Blood testing was unremarkable with a normal white blood cell count, unremarkable CMP. She also had negative COVID and influenza swabs. Headache decreased from 8 out of 10 to 2 out of 10 after ED treatment. She felt better overall and had no more nausea after receiving a liter of normal saline IV fluid and IV Zofran. She was discharged home. We discussed clear liquid diet until her GI symptoms improved. She has Zofran at home as well as Tylenol Motrin that she can take if the headache recurs and I instructed her to take those immediately if the headache worsens or comes back. Lab Data Lab results reviewed: Yes I reviewed the patient's lab results Labs: Lab Results 07/25/23 Range/Units 19:59 WBC 11.0 (4.0-11.0) 10^3/uL RBC 4.59 (4.20-5.40) 10^6/uL Hgb 14.5 (12.0-16.0) g/dL Hct 44.2 (36.0-48.0) % MCV 96.3 (81.0-99.0) fL MCH 31.6 (26.7-34.0) pg MCHC 32.8 (29.9-35.2) g/dL RDW 12.0 (11.0-15.0) % Plt Count 194 (150-450) 10^3/uL MPV 10.4 (9.5-13.5) fL Neut % (Auto) 87.5 H (43.0-75.0) % Lymph % (Auto) 7.5 L (20.5-60.0) % [place] % (Auto) 3.9 (1.7-12.0) % Eos % (Auto) 0.5 L (0.9-7.0) % Baso % (Auto) 0.3 (0.2-2.0) % Neut # (Auto) 9.7 H (1.4-6.5) 10^3/uL Lymph # (Auto) 0.8 L (1.2-3.8) 10^3/uL [place] # (Auto) 0.4 (0.3-0.8) 10^3/uL Eos # (Auto) 0.1 (0.0-0.7) 10^3/uL Baso # (Auto) 0.0 (0.0-0.1) 10^3/uL Abs Immat Gran (auto) 0.03 (0.00-0.03) 10^3/uL Imm/Tot Granulo (auto) 0.3 (0.0-0.5) % Sodium 138 (136-145) mmol/L Potassium 3.9 (3.5-5.1) mmol/L Chloride 103 (98-107) mmol/L Carbon Dioxide 24.0 (21.0-32.0) mmol/L Anion Gap 14.9 BUN 10.0 (7.0-18.0) mg/dL Creatinine 0.88 (0.55-1.02) mg/dL Est GFR ( Amer) >60 (>=60) Est GFR (Non-Af Amer) >60 (>=60) BUN/Creatinine Ratio 11.4 Glucose 99 (74-106) mg/dL Calcium 8.8 (8.5-10.1) mg/dL Total Bilirubin 0.6 (0.2-1.0) mg/dL AST 13 L (15-37) U/L ALT 25 (14-59) U/L Alkaline Phosphatase 61 (46-116) U/L Total Protein 7.4 (6.4-8.2) g/dL Albumin 4.0 (3.4-5.0) g/dL Globulin 3.4 g/dL Albumin/Globulin Ratio 1.2 Lipase 23.0 (16.0-77.0) U/L Serum HCG, Qual Negative (NEGATIVE) Influenza Type A Ag Negative Influenza Type B Ag Negative SARS-CoV-2 Ag (CV2AG) Negative (NEGATIVE) Discharge Plan Discharge Stand Alone Forms: Portal Instructions Chief Complaint: Headache Clinical Impression: Headache, Nausea & vomiting Patient Disposition: Home, Self-Care Time of Disposition Decision: 20:39 Prescriptions / Home Meds: No Action tizanidine 4 mg tablet 4 mg PO BEDTIME tramadol 50 mg tablet 50 mg PO Q8H PRN (Reason: pain) 3 Days Qty: 9 0RF hydrocodone-acetaminophen 5-325 mg tablet 1 tab PO Q4H PRN (Reason: pain) montelukast 10 mg tablet 10 mg PO DAILY alprazolam [Xanax] 1 mg PO BID PRN (Reason: anxiety) Print Language: Croatian Instructions: Acute Headache (ED), Acute Nausea and Vomiting (ED) Referrals: MARIO GUAMAN [Primary Care Provider] - 1 week
[2023-07-25] MEDS: HYDROMORPHONE HCL 1 MG/ML CARTRIDGE IVP (20:05)
[2023-07-25] MEDS: METHYLPREDNISOLONE SOD SUCC PF 125 MG/2 ML VIAL IVP (20:05)
[2023-07-25] MEDS: 0.9 % SODIUM CHLORIDE 1,000 ML 1000 ML IV (20:05)
[2023-07-25] MEDS: ONDANSETRON PF 4 MG/2 ML VIAL IV (20:05)
[2023-07-25 20:21] LABS: Basophils Percent Auto 0.3 % (0.2-2.0); Eosinophils Absolute Auto 0.1 10^3/uL (0.0-0.7); Eosinophils Percent Auto 0.5 % (0.9-7.0); Hematocrit 44.2 % (36.0-48.0); Hemoglobin 14.5 g/dL (12.0-16.0); Immature Granulocytes Abs Auto 0.03 10^3/uL (0.00-0.03); Immature Granulocytes Pct Auto 0.3 % (0.0-0.5); Lymphocytes Absolute Auto 0.8 10^3/uL (1.2-3.8); Lymphocytes Percent Auto 7.5 % (20.5-60.0); Mean Corpuscular HGB Conc 32.8 g/dL (29.9-35.2); Mean Corpuscular Hemoglobin 31.6 pg (26.7-34.0); Mean Corpuscular Volume 96.3 fL (81.0-99.0); Mean Platelet Volume 10.4 fL (9.5-13.5); Monocytes Absolute Auto 0.4 10^3/uL (0.3-0.8); Monocytes Percent Auto 3.9 % (1.7-12.0); Neutrophils Absolute Auto 9.7 10^3/uL (1.4-6.5); Neutrophils Percent Auto 87.5 % (43.0-75.0); Platelet Count 194 10^3/uL (150-450); Red Blood Count 4.59 10^6/uL (4.20-5.40)
[2023-07-25 20:29] LABS: Influenza Virus A Antigen Negative; Influenza Virus B Antigen Negative; Internal Control Within Normal Limits; SARS-CoV-2 Ag NEGATIVE (NEGATIVE)
[2023-07-25 20:31] LABS: HCG Qualitative NEGATIVE (NEGATIVE)
[2023-07-25 20:36] LABS: Alanine Aminotransferase 25 U/L (14-59); Albumin Globulin Ratio 1.2; Alkaline Phosphatase 61 U/L (46-116); Anion Gap 14.9; Aspartate Amino Transferase 13 U/L (15-37); BUN Creatinine Ratio 11.4; Bilirubin Total 0.6 mg/dL (0.2-1.0); Calcium 8.8 mg/dL (8.5-10.1); Chloride 103 mmol/L (98-107); Estimated GFR (African America >60 (>=60); Estimated GFR (Non-African Ame >60 (>=60); Globulin 3.4 g/dL; Glucose 99 mg/dL (74-106); Potassium 3.9 mmol/L (3.5-5.1); Sodium 138 mmol/L (136-145); Total Protein 7.4 g/dL (6.4-8.2)
[2023-07-25 20:57] VITALS: BP 126/84; PULSE 78; O2SAT 98
== END 2023-07-25 21:03 | disposition home or self-care (01) ==
PROVIDERS: Emergency Provider Emergency Medicine; PCP Family Medicine
DX: R51.9 Headache, unspecified (principal); R11.2 Nausea with vomiting, unspecified; Z79.899 Other long term (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 therapy; G90.A Postural orthostatic tachycardia syndrome [POTS]; Z87.442 Personal history of urinary calculi; Z86.59 Personal history of other mental and behavioral disorders; Z98.890 Other specified postprocedural states; Z90.710 Acquired absence of both cervix and uterus; Z98.51 Tubal ligation status; Z20.822 Contact with and (suspected) exposure to COVID-19
CPT/HCPCS: 36415; 80053; 83690; 84703; 85025; 87804; 87811; 96361; 96374; 96375; 99284; J1170; J2919

== ENCOUNTER 2023-09-02 11:04 | Outpatient (OUT) | payer OTHER, SELFPAY ==
[2023-09-02 12:08] LABS: Free T3 2.79 pg/mL (2.18-3.98); Thyroid Stimulating Hormone 3.388 uIU/mL (0.358-3.740)
[2023-09-02 12:24] LABS: Free T4 0.98 ng/dL (0.76-1.46)
== END 2023-09-02 11:05 | disposition home or self-care (01) ==
LOC: LAB 11:06
PROVIDERS: PCP Family Medicine; Visit Provider Family Medicine
DX: R53.83 Other fatigue (principal)
CPT/HCPCS: 36415; 82533; 84439; 84443; 84481

== ENCOUNTER 2023-12-05 00:11 | Emergency (ER) | payer OTHER, SELFPAY ==
[2023-12-05 00:13] VITALS: BP 140/97; PULSE 85; TEMP 36.7; O2SAT 98; BMI 38.4
--- OUTSIDE RECORDS SUMMARY | 2023-12-05 00:16 | XMS_ITS | CCD ---
Author Organization [facility] Care Team Providers Care Senior Data Warehouse Architect Name Role Phone MARIO GLASGOW Primary Care Physician Carol Ann Chacon Unavailable Unavailable Mario Glasgow Unavailable Vi Benites Unavailable DO Mario Glasgow Primary Care Provider DO Rell Garcia Attending Provider DO Jose Cade Emergency Provider DO Mario Glasgow Attending Provider DR MARIO GLASGOW Primary Care Unavailable MARKER ., DR HOPKINS Admitting Unavailable MARKER ., DR HOPKINS Attending Unavailable MARKER ., DR HOPKINS Consulting Unavailable PEE, DR MARIO Cullen Primary Care Unavailable SUKHDEV, CAMILLE Admitting Unavailable CAMILLE SANTIZO Attending Unavailable ROSAURA .SIVAN Consulting Unavailabl e CAMILLE SANTIZO Consulting Unavailable PEE, DR MARIO Cullen Primary Care Unavailable SUKHDEV, CAMILLE Admitting Unavailable CAMILLE SANTIZO Attending Unavailable KASHIF SANTIZOYL Consulting Unavailable ROC ARNOLD Consulting Unavailable PEE, DR MARIO Cullen Primary Care Unavailable SUKHDEV, CAMILLE Admitting Unavailable CAMILLE SANTIZO Attending Unavailable CAMILLE SANTIZO Consulting Unavailable PEE, DR MARIO Cullen Primary Care Unavailable LORI ., QUINTIN Admitting Unavailable LORI Ng, QUINTIN Attending Unavailable Richelle Bush Consulting Unavailable LORI Ng, QUINTIN Consulting Unavailable PEE, DR MARIO Cullen Primary Care Unavailable SUKHDEV, CAMILLE Admitting Unavailable SUKHDEV, CAMILLE Attending Unavailable CASE .PHYLICIA Consulting Unavailable SUKHDEV, CAMILLE Consulting Unavailable JASS GRISSOM Consulting Unavailable PEE, DR MARIO Cullen Primary Care Unavailable SUKHDEV, CAMILLE Admitting Unavailable CAMILLE SANTIZO Attending Unavailable SIVAN DORSEY Consulting UnavailCAMILLE De Luna Consulting Unavailable LIZZIE YU Consulting Unavailable Erin Chavez Attending Unavailable DO Sonam Montoya Attending Unavailable DO Mario Glasgow Primary Care Provider KIKE Alvarez Emergency Provider [phone] DO Mario Glasgow. Primary Care Provider KIKE Alvarez Emergency Provider [phone] DO Lucero Belle Attending Provider Maroi Glasgow. Primary Care Unavailable Bhanu Alvarez Admitting Unavailable Bhanu Alvarez Attending Unavailable Loren, Lucero Admitting Unavailable Loren, Lucero Attending Unavailable Mario Glasgow Primary Care Unavailable Em LASSITER, Keli Cervantes Primary Care Provider [phone] Erin Chavez MD Unavailable Em LASSITER, Keli Cervantes Primary Care Provider FRANCHESCA CASTREJON Referring Unavailable KELI STRICKLAND Primary Care Unavailable FRANCHESCA CASTREJON Referring Unavailable KELI STRICKLAND Primary Care Unavailable KELI STRICKLAND Primary Care Unavailable FRANCHESCA CASTREJON Attending Unavailable RELL GARCIA Attending Unavailable RELL GARCIA Referring Unavailable RELL GARCIA Referring Unavailable ITHAYLIE, LUCERO Tsai Attending Unavailable RELL GARCIA Referring Unavailable ITNIGELTZ, LUCERO H Attending Unavailable MARIO GLASGOW Referring Unavailable ITZSVETLANATZ, LUCERO H Attending Unavailable VASU WILCOX Attending Unavailable Allergies Allergy Classification Reported Allergen(s) Allergy Type Date of Onset Reaction(s) Facility (20 sources) Azithromycin; Translations: [azithromycin] Drug Allergy 03-06-20 Unknown [facility] Other (4 sources) cefTRIAXone; Translations: [ceftriaxone] Drug Allergy Mean (qualifier value) [facility] (20 sources) Ciprofloxacin; Translations: [ciprofloxacin] Drug Allergy 03-06-20 Unknown [facility] [employer] Other (20 sources) Dicyclomine; Translations: [dicyclomine] Drug Allergy 03-06-20 Unknown [facility] (20 sources) Ketorolac; Translations: [ketorolac] Drug Allergy 03-06-20 Unknown [facility] [employer] Other (20 sources) Metoclopramide; Translations: [metoclopramide] Drug Allergy 03-06-20 Unknown [facility] Other (20 sources) Morphine; Translations: [morphine] Drug Allergy 06-03-19 24 Hives, Hives-IV [facility] [employer] Other Comment on above: causes hives (20 sources) NITROFURANTOIN, MACROCRYSTALS / Nitrofurantoin, Monohydrate; Translations: [nitrofurantoin] Drug Allergy Itching, Unknown [facility] [employer] Other (20 sources) Penicillin; Translations: [penicillin] Drug Allergy Unknown (qualifier value) [facility] [employer] Other (4 sources) zolpidem; Translations: [zolpidem] Drug Allergy Agitation [facility] (20 sources) diphenhydrAMINE Drug Allergy IV Hives [facility] [employer] Other (20 sources) LORazepam; Translations: [LORAZEPAM] Drug Allergy 03-06-20 Unknown [facility] (20 sources) Penicillin V Drug Allergy Unknown [facility] Other (10 sources) diphenhydrAMINE Drug Allergy IV Hives [facility] [employer] Other (20 sources) DULoxetine Drug Allergy 06-03-19 24 worsen depression [facility] (20 sources) Nitrofurantoin; Translations: [nitrofurantoin] Drug Allergy 03-06-20 21 Unknown [facility] (20 sources) Penicillins; Translations: [Penicillins] Allergy to substance 09-17-19 13 Unknown [facility] (1 source) Azithromycin Drug Allergy 09-17-19 13 [facility] (1 source) Ciprofloxacin Drug Allergy 09-17-19 13 [facility] (1 source) Dicyclomine Drug Allergy 07-20-19 15 [facility] (1 source) Iothalamate Drug Allergy 09-17-19 13 [facility] (1 source) Ketorolac Drug Allergy 03-11-20 13 [facility] (1 source) LORazepam Drug Allergy 09-10-19 16 [facility] (1 source) Nitrofurantoin Drug Allergy 09-17-19 13 [facility] (1 source) LORazepam; Translations: [Ativan] Drug Allergy [facility] (1 source) Azithromycin Drug Allergy 06-03-19 [facility] (1 source) Ciprofloxacin Drug Allergy 06-03-19 [facility] (1 source) Dicyclomine Drug Allergy 06-03-19 [facility] (1 source) DULoxetine Drug Allergy 06-03-19 [facility] (1 source) Ketorolac Drug Allergy 06-03-19 [facility] (1 source) LORazepam Drug Allergy 06-03-19 [facility] (1 source) Metoclopramide Drug Allergy 06-03-19 [facility] (1 source) Morphine Drug Allergy 06-03-19 [facility] Medications Current Medications Medication Drug Class(es) Dates Sig (Normalized) Sig (Original) Acetaminophen / HYDROcodone (14 sources) Opioid Agonist Start: 05-16-2021 [place] 5/325 Tab Oral, q6hr, Refill(s) 0 Start Date: 05/16/21 Status: Ordered Start: 05-08-2021 take 1 tablet by karl th every six hours HYDROcodone-Acetaminophen 5-325 MG 1 tab let as needed Orally every 6 hrs for 5 days Apr, Not-Taking Start: 05-08-2021 take 1 tablet by karl th every six hours Extra Strength Acetaminophen (15 sources) Extra Strength [...] 90 tab(s), Refills(s) 3, Bladder problems, Pharmacy: [facility]/pharmacy #[id number], 165, cm, 05/18/21 11:56:00 EST, Height/Length Dosing, 100, kg, 05/16/21 9:54:00 EST, Weight Dosing Start Date: 05/21/21 Status: Ordered montelukast 10 mg oral tablet (20 sources) Leukotriene Receptor Antagonist Start: 07-07-19 take 10 mg by mouth once daily Montelukast Active 10 MG PO Daily July 07, 2023 12:00am Start: 06-24-2022 take 1 tablet by karl every twenty-four hours Montelukast Sodium 10 MG 1 tablet Orally Once a day for 30 days Jun, Active phentermine hydrochloride 37.5 mg oral tablet (20 sources) Sympathomimetic Amine Anorectic Start: 07-07-2023 End: 11-12-2023 take 37.5 mg by mouth once daily Phentermine Active 37.5 MG PO Daily November 12, 2023 3:03pm Start: 01-29-2023 take 1 tablet by karl once daily [...] Discontinued 37.5 MG PO As Directed November 21, 2017 12:00am December 22, 2018 4:27pm sulfacetamide sodium 100 mg/ml ophthalmic solution (2 sources) Sulfonamide Antibacterial Start: 11-28-2010 take 1 drop(s) into the eye(s) every six hours Bleph-10 10 % 1 drop into affected eye Ophthalmic every 6 hrs for 5 days Nov, Active traMADol hydrochloride 50 mg oral tablet (17 sources) Opioid Agonist Start: 11-23-2022 take 1 tablet by mouth every six hours as needed for pain traMADOL 50 mg Tab 50 mg = 1 tab(s), Oral, q6hr, PRN for pain, # 12 tab(s), Refills(s) 0, Pharmacy: [facility]/pharmacy #[id number], 165, cm, 11/22/22 19:18:00 EDT, Height/Length Dosing, 103, kg, 11/22/22 19:18:00 EDT, Weight Dosing Start Date: 11/23/22 Status: Ordered Start: 05-02-2022 End: 06-03-2023 take 50 mg by mouth every four hours Tramadol Discontinued 50 MG PO Q4H 07 11May 02, 2022 1:00am June 03, 2023 2:33pm Start: 01-30-2022 take 1-2 tablets by mouth every six hours as needed traMADol HCl 50 MG 1-2 tabs as needed Orally every 6 hours for 5 days Jan, Active Start: 03-22-2021 take 1-2 tablets by mouth every six hours as needed traMADol HCl 50 MG 1-2 tabs as needed Orally every 6 hours for 7 days Mar, Active valACYclovir 1000 mg oral tablet (20 sources) Herpesvirus Nucleoside Analog DNA Polymerase Inhibitor, Herpes Simplex Virus Nucleoside Analog DNA Polymerase Inhibitor, Herpes Zoster Virus Nucleoside Analog DNA Polymerase Inhibitor Start: 04-10-2022 End: 08-22-2023 take 1000 mg by mouth twice daily Valacyclovir Active 1000 MG PO Twice daily 07 02August 22, 2023 12:00pm take 1 tablet by karl th once daily as needed Valtrex 1 GM 1 tablet Orally for cold sores Once a day/PRN Active take 1 tablet by karl th once daily as needed Valtrex 1 GM 1 tablet Orally for cold sores Once a day/PRN Active Completed/Discontinued Medications Medication Drug Class(es) Dates Sig (Normalized) Sig (Original) acetaminophen 300 mg / butalbital 50 mg / caffeine 40 mg oral capsule (5 sources) Barbiturate, Central Nervous System Stimulant, Methylxanthine Start: 06-03-2023 End: 08-27-2023 take 1 capsule by mouth every six hours Butalbital-Acetam inophen-Caff (Fioricet) 50-300-40 mg capsule Discontinued 1 CAP PO Q6H 12 June 03, 2023 1:00am August 27, 2023 4:26pm acetaminophen 325 mg / oxyCODONE hydrochloride 5 mg oral tablet (20 sources) Opioid Agonist Start: 09-03-2017 End: 09-07-2017 take 1 tablet by mouth every four to six hours Oxycodone-Acetami nophen Discontinued 1 TAB PO EVERY 4-6 HOURS September 03, 2017 September 07, 2017 12:02am Start: 08-21-2017 End: 11-21-2017 take 2 tablets by mouth every four hours Oxycodone-Acetaminophen (Percocet) 5-325 mg tablet Discontinued 2 TAB PO Q4H August 21, 2017 November 21, 2017 7:33pm take 1 tablet by karl th every six hours Percocet 5-325 MG 1 tablet as needed Orally every 6 hrs Not-Taking ALPRAZolam 2 mg oral tablet (20 sources) Benzodiazepine Start: 06-06-2023 End: 10-29-2023 take 2 mg by mouth twice daily Alprazolam Discontinued 2 MG PO Twice daily 60 July 07, 2023 2:20pm August 13, 2023 3:15pm Start: 05-07-2023 take 1 tablet by karl th every [...] Start: 08-13-2021 take 1 tablet by karl every twelve hours Xanax 2 MG 1 tablet as needed Orally Twice a day for 30 days Jul, Active Start: 07-06-2021 take 1 tablet by karl th every twelve hours Xanax 2 MG 1 tablet as needed Orally Twice a day for 30 days Jun, Active Start: 06-08-2021 take 1 tablet by karl th every twelve hours Xanax 2 MG 1 tablet as needed Orally Twice a day for 30 days May, Active Start: 04-11-2021 take 1 tablet by karl every twelve hours Xanax 1 MG 1 tablet as needed Orally Twice a day for 30 days Apr, Active Start: 04-24-2017 take 1 tablet by karl th twice daily as needed for anxiety Xanax 0.25 mg Tab 0.25 mg = 1 tab(s), Oral, BID, PRN as needed for anxiety, Refills(s) 0 Start Date: 04/24/17 Status: Ordered Start: 03-14-2017 End: 06-06-2023 take 2 tablets by mouth twice daily Alprazolam (Xanax) 1 mg Tablet Discontinued 2 MG PO Twice daily March 14, 2017 1:00am June 06, 2023 11:26am Comment on above: Take 1 mg by mouth t wice daily as needed. ARIPiprazole 2 mg oral tablet (10 sources) Atypical Antipsychotic Start: 2016 End: 2017 Aripiprazole (Abilify) 2 mg Tablet Discontinued TABLET March 14, 2017 1:00am June 04, 2017 2:59am cephalexin 500 mg oral capsule (10 sources) Cephalosporin Antibacterial Start: 2017 End: 2017 take 1 capsule by mouth four times daily Cephalexin (Keflex) 500 mg capsule Discontinued 500 MG PO Four times daily 40 September 08, 2017 12:00am November 21, 2017 7:33pm cyclobenzaprine hydrochloride 10 mg oral tablet (10 sources) Muscle Relaxant Start: 2016 End: 2017 take 10 mg by mouth three times daily Cyclobenzaprine Discontinued 10 MG PO Three times daily March 14, 2017 1:00am June 04, 2017 3:00am doxycycline hyclate 100 mg oral tablet (3 sources) Tetracycline-class Drug Start: 2021 take 1 tablet by mouth once daily doxycycline hyclate 100 mg Tab 100 mg = 1 tab(s), Oral, BID, Take 1 tablet the day prior to scheduled procedure, take 2nd tablet the day of procedure, # 2 tab(s), Refills(s) 0, Pharmacy: [facility]/pharmacy #[id number], 165, cm, 05/18/21 11:56:00 EST, Height/Length Dosing, 100, kg, 05/16/21 9:5... Start Date: 06/21/21 Status: Ordered ergocalciferol 1.25 mg oral capsule (20 sources) Provitamin D2 Compound Start: 2020 take 1 capsule by mouth every week Vitamin D (Ergocalciferol) 1.25 MG (06409 UT) 1 capsule Orally weekly for 30 day(s) Jun, Not-Taking ibuprofen 800 mg oral tablet (10 sources) Nonsteroidal Anti-inflammatory Drug Start: 2016 End: 2017 take 800 mg by mouth three times daily Ibuprofen Discontinued 800 MG PO Three times daily March 14, 2017 1:00am June 04, 2017 3:00am lamoTRIgine 25 mg oral tablet (10 sources) Mood Stabilizer, Anti-epileptic Agent Start: 2017 End: 2017 take 100 mg by mouth twice daily Lamotrigine Discontinued 100 MG PO Twice daily June 12, 2017 1:00am November 21, 2017 7:33pm levothyroxine sodium 0.075 mg oral tablet (10 sources) l-Thyroxine Start: 2018 End: 2021 take 75 ug by mouth once daily Levothyroxine Discontinued 75 MCG PO Daily December 22, 2018 12:00am April 25, 2021 2:41pm 10 ml lidocaine hydrochloride 10 mg/ml injection (1 source) Antiarrhythmic, Amide Local Anesthetic Start: 2023 End: 2023 lidocaine (PF) 10 mg/mL (1 %) injection (XYLOCAINE) 3 ml liraglutide 6 mg/ml pen injector (7 sources) GLP-1 Receptor Agonist Start: 2021 inject 0.6 mg by subcutaneous injection once daily Saxenda 18 MG/3ML 0.6 mg Subcutaneous once daily for 14 days Sep, Not-Taking metFORMIN hydrochloride 500 mg oral tablet (20 sources) Biguanide Start: 2018 End: 2018 Metformin Discontinued TABLET June 24, 2018 1:00am December 22, 2018 4:27pm Start: 09-03-2017 End: 11-21-2017 take 250 mg by mouth twice daily Metformin Discontinued 250 MG PO Twice daily September 03, 2017 12:00am November 21, 2017 7:33pm Start: 03-14-2017 End: 09-03-2017 take 250 mg by mouth twice daily Metformin Discontinued 250 MG PO Twice daily March 14, 2017 1:00am September 03, 2017 12:54pm naproxen 500 mg oral tablet (10 sources) Nonsteroidal Anti-inflammatory Drug Start: 12-04-2019 End: 04-25-2021 take 500 mg by mouth every twelve hours Naproxen Discontinued 500 MG PO Q12H December 04, 2019 12:00am April 25, 2021 2:41pm ondansetron 4 mg disintegrating oral tablet (20 sources) Serotonin-3 Receptor Antagonist Start: 06-03-2023 End: 08-27-2023 take 4 mg by mouth four times daily Ondansetron Discontinued 4 MG PO Four times daily June 03, 2023 1:00August 27, 2023 4:26pm Start: 05-02-2022 End: 08-27-2023 take 4 mg by mouth every six hours Ondansetron Discontinued 4 MG PO Q6H May 02, 2022 1:00am August 27, 2023 4:26pm Start: 06-18-2021 take 1 tablet by karl th every eight hours Ondansetron HCl 4 MG 1 tablet on the tongue and allow to dissolve Orally every 8 hrs for 10 days May, Active Start: 01-29-2021 End: 06-03-2023 Ondansetron Hcl (Zofran) 4 m g tablet Discontinued 4 MG PO every 6 to 8 hours January 29, 2021 12:00am June 03, 2023 2:33pm Start: 08-21-2017 End: 08-24-2017 take 1 tablet by mouth every eight hours Ondansetron (Zofran Odt) 8 mg tablet,disintegrating Discontinued 8 MG PO Q8H 08 21August 21, 2017 12:00am August 24, 2017 12:01am Start: 03-14-2017 End: 06-04-2017 take 1 tablet by mouth every eight hours Ondansetron (Zofran Odt) 4 mg tablet,disintegrating Discontinued 4 MG PO Q8H March 14, 2017 1:00am June 04, 2017 3:00am phenazopyridine hydrochloride 200 mg oral tablet (10 sources) Start: 09-08-2017 End: 11-21-2017 take 200 mg by mouth three times daily at mealtime Phenazopyridine Discontinued 200 MG PO Three times daily 01 21September 08, 2017 12:00am November 21, 2017 7:33pm administer with a full glass of water after each meal sulfamethoxazole 800 mg / trimethoprim 160 mg oral tablet (10 sources) Dihydrofolate Reductase Inhibitor Antibacterial, Sulfonamide Antimicrobial Start: 01-29-2021 End: 04-25-2021 take 1 tablet by mouth twice daily Sulfamethoxazole-Tr imethoprim (Bactrim Ds) 800-160 mg tablet Discontinued 1 TAB PO Twice daily January 29, 2021 12:00am April 25, 2021 2:41pm tamsulosin hydrochloride 0.4 mg oral capsule (10 sources) alpha-Adrenergic Jimmie Start: 09-08-2017 End: 11-21-2017 Tamsulosin (Flomax) 0.4 mg capsule,extended release 24hr Discontinued 0.4 MG PO Daily September 08, 2017 12:00am November 21, 2017 7:33pm administer 30 minutes after same meal each day; swallow whole with liquid; do not crush/chew/dissolve /open temazepam 7.5 mg oral capsule (20 sources) Benzodiazepine Start: 06-24-2018 End: 04-25-2021 take 1 capsule by mouth at bedtime Temazepam (Restoril) 7.5 mg Capsule Discontinued 7.5 MG PO Bedtime June 24, 2018 1:00am April 25, 2021 2:41pm Start: 06-04-2017 End: 12-22-2018 take 30 mg by mouth once daily at bedtime Temazepam Discontinued 30 MG PO Daily at bedtime June 04, 2017 1:00am December 22, 2018 4:27pm tiZANidine 4 mg oral tablet (20 sources) Central alpha-2 Adrenergic Agonist Start: 06-30-2023 End: 08-27-2023 take 1 tablet by mouth every eight hours as needed Tizanidine Discontinued 0 .ROUTE .COMPLEX 90 August 05, 2023 10:30am August 27, 2023 4:49pm TAKE 1 TABLET BY MOUTH EVERY 8 HOURS NEEDED FOR BACK SPAMS Start: 06-30-2023 End: 06-30-2023 take 4 mg by mouth three times daily Tizanidine Discontinued 4 MG PO Three times daily June 30, 2023 12:00am June 30, 2023 1:00pm Start: 06-03-2023 End: 06-03-2023 take 4 mg by mouth every eight hours Tizanidine Discontinued 4 MG PO Every 8 hours June 03, 2023 12:53pm June 03, 2023 2:33pm Start: 05-16-2021 Zanaflex Oral, Refills(s) 0 Start Date: 05/16/21 Status: Ordered Start: 04-25-2021 End: 06-03-2023 take 4 mg by mouth once daily at bedtime Tizanidine Discontinued 4 MG PO Daily at bedtime April 25, 2021 1:00am June 03, 2023 12:56pm take 1 tablet by karl th every eight hours Zanaflex 4 MG 1 tablet as needed Orally Three times a day for 30 days Active topiramate 25 mg oral tablet (10 sources) Start: 01-27-2019 End: 04-25-2021 take 1 mg by mouth twice daily Topiramate Discontinued 1 MG PO Twice daily January 27, 2019 12:00am April 25, 2021 2:41pm Problems Active Problems Problem Classification Problem Date Documented Da te Episodic/Chronic Abdominal pain (20 sources) Abdominal pain; Translations: [Unspecified abdominal pain] Onset: 05-02-2021 Resolved: 05-02-2021 Episodic Administrative/social admission (1 source) Stress, not elsewhere classified; Translations: [STRESS NOT ELSEWHERE CLASSIFIED] Onset: 08-15-2022 Episodic Anxiety disorders (20 sources) Anxiety; Translations: [Anxiety disorder, unspecified] Onset: 05-30-2021 Resolved: 05-30-2021 07-02-2013 Chronic Calculus of urinary tract (18 sources) History of calculus of kidney; Translations: [Personal history of urinary calculi] Onset: 08-15-2021 Episodic Diabetes mellitus without complication (20 sources) Impaired fasting glycemia; Translations: [Impaired fasting glucose] Episodic Endometriosis (1 source) Endometriosis, unspecified; Translations: [ENDOMETRIOSIS UNSPECIFIED] Onset: 04-29-2022 Chronic Epilepsy; convulsions (12 sources) Seizure; Translations: [Epilepsy, unspecified, not intractable, without status epilepticus] Onset: 10-31-2021 06-21-2017 Chronic Epilepsy; convulsions (20 sources) Seizure; Translations: [Neurological finding] Onset: 03-06-2021 06-06-2016 Episodic Genitourinary symptoms and ill-defined conditions (4 sources) Mixed incontinence; Translations: [Incontinence] Onset: 08-15-2021 Chronic Headache; including migraine (20 sources) Migraine without aura, not refractory ; Translations: [Migraine without aura, not intractable, without status migrainosus] Onset: 08-13-2022 Chronic Headache; including migraine (20 sources) Headache; Translations: [Headache] Onset: 03-07-2021 06-22-2017 Episodic Headache; including migraine (3 sources) Headache; including migraine; Translations: [HEADACHE UNSPECIFIED] Onset: 08-12-2022 Malaise and fatigue (3 sources) Other fatigue; Translations: [Other malaise and fatigue] 08-27-2023 Episodic Menstrual disorders (20 sources) Disorder of menstruation; Translations: [Irregular menstruation, unspecified] Chronic Miscellaneous mental health disorders (20 sources) Dissociative convulsions; 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] 06-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 Mood disorders (4 sources) Depressive disorder; Translations: [Major depressive disorder, single episode, unspecified] Onset: 02-11-2022 07-02-2013 Chronic Mood disorders (1 source) Mood disorders; Translations: [DEPRESSION UNSPECIFIED] Onset: 08-15-2022 Nausea and vomiting (12 sources) Nausea; Translations: [Nausea] Onset: 04-29-2022 01-27-2019 Episodic Nonmalignant breast conditions (6 sources) Fibrocystic changes of bilateral breasts; Translations: [Diffuse cystic mastopathy of right breast] Onset: 09-08-2023 08-07-2023 Chronic Nonmalignant breast conditions (17 sources) Unspecified lump in the right breast, lower outer quadrant; Translations: [Breast problem] Onset: 07-07-2023 08-06-2023 Episodic Nutritional deficiencies (20 sources) Vitamin D deficiency; Translations: [Vitamin D deficiency, unspecified] Onset: 09-27-2021 Resolved: 09-27-2021 Chronic Other aftercare (1 source) Other residential (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 therapy; Translations: [OTH PLASTIC WELDER CURRENT DRUG THERAPY] Onset: 08-15-2022 Episodic Other and unspecified benign neoplasm (1 source) Fibroadenoma of right breast; Translations: [Benign neoplasm of right breast] 09-12-2023 Episodic Other circulatory disease (6 sources) Postural orthostatic tachycardia syndrome 06-06-2016 Episodic Other diseases of bladder and urethra (4 sources) Urethral stricture; Translations: [Other urethral stricture, female] Onset: 08-15-2021 Episodic Other diseases of kidney and ureters (3 sources) Hydronephrosis 05-16-2021 Episodic Other gastrointestinal disorders (20 sources) Irritable bowel [...] [Other chronic pain] Onset: 11-22-2022 Chronic Other nutritional; endocrine; and metabolic disorders [...] Chronic Other nutritional; endocrine; and metabolic disorders (4 sources) Body mass index (BMI) 38.0-38.9, adult; Translations: [Body Mass Index 38.0-38.9, adult] Onset: 09-27-2021 Resolved: 10-01-2021 Chronic Other nutritional; endocrine; and metabolic disorders (2 sources) Body mass index (BMI) 36.0-36.9, adult Onset: 11-21-2021 Resolved: 12-25-2021 Chronic Other nutritional; endocrine; and metabolic disorders (7 sources) Body mass index (BMI) 39.0-39.9, adult; Translations: [Body Mass Index 39.0-39.9, adult] Chronic Other upper respiratory disease (18 sources) [...] (20 sources) Insomnia; Translations: [Insomnia, unspecified] Episodic Residual codes; unclassified (3 sources) Family history of breast cancer; Translations: [Family history of malignant neoplasm of breast] 08-07-2023 Episodic Residual codes; unclassified (1 source) Family history of malignant neoplasm of breast; Translations: [Family history of breast cancer] Onset: 09-08-2023 Episodic Sprains and strains (20 sources) Strain of neck muscle; Translations: [Strain of muscle, fascia and tendon at neck level, initial encounter] Onset: 04-02-2022 06-22-2017 Episodic Substance-related disorders (3 sources) Smoker 07-24-2016 Chronic Comment on above: Added secondary to d ocumentation in Social History. Superficial injury; contusion (11 sources) Abrasion of foot; Translations: [Abrasion, unspecified foot, initial encounter] Onset: 02-11-2022 12-04-2019 Episodic Syncope (3 sources) Syncope 06-06-2016 Episodic Unclassified (1 source) ADENOMYOSIS OF THE UTERUS; Translations: [ADENOMYOSIS OF THE UTERUS] Onset: 04-29-2022 Unclassified (1 source) Unspecified convulsions; Translations: [Unspecified convulsions] Onset: 06-03-2023 Unclassified (1 source) Dense breasts; Translations: [Dense breasts] Onset: 09-08-2023 Urinary tract infections (15 sources) Acute cystitis; Translations: [Acute cystitis without [...] [PAIN IN LEFT SHOULDER] Onset: 02-10-2022 Episodic Unclassified (1 source) kidney infections( Confirmed ) 07-21-2012 Unclassified (1 source) Conjunctivitis 372.30 Onset: 10-23-2021 Resolved: 10-23-2021 Unclassified (2 sources) kidney infections 07-21-2012 Results Test Name Value Interpretation Reference Range Facility [facility] 09-12-2023 [facility] Telephone (BRCRMN) ----- SULLY ENRIQUEZ ([id number]) 1990 F Date Time Provider Department 09/12/23 FRANCHESCA MAN [facility] During your visit today, we recorded the following information about you: Franchesca Man PA-C 09/12/2023 10:15 AM Signed Spoke to patient and relayed results from biopsy (benign FA). We discussed that because the FA is 2cm in size and bothersome it is reasonable to see a breast surgeon to discuss the possibility of excision. She is agreeable and voices understanding. Consult placed. 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 Problem List As Of Date 09/12/2023 Noted Resolved Seizure (HCC) [R56.9] 03/06/2021 Headaches [R51.9] 03/07/2021 Encounter Status:Closed by FRANCHESCA MAN on 09/12/23 [facility] ----- SULLY ENRIQUEZ ([id number]) 1990 F Date Time Provider Department 09/11/23 FRANCHESCA MAN [facility] During your visit today, we recorded the following information about you: Franchesca Man PA-C 09/11/2023 3:26 PM Signed Called pt to discuss biopsy result and recommendations. No answer, will try back tomorrow morning. Allergies As of Date: 09/11/2023 Noted Allergy Reaction CIPROFLOXACIN 03/06/2021 16 - Unknown DICYCLOMINE 03/06/2021 16 - Unknown KETOROLAC 03/06/2021 16 - Unknown LORAZEPAM 03/06/2021 16 - Unknown NITROFURANTOIN 03/06/2021 16 - Unknown PENICILLINS 03/06/2021 16 - Unknown REGLAN (METOCLOPRAMIDE) 03/06/2021 16 - Unknown ZITHROMAX (AZITHROMYCIN) 03/06/2021 16 - Unknown Date Reviewed: 09/08/2023 Reviewed by: Maritza Rodney, RT(R) - Fully Assessed Prescriptions as of 09/11/2023 - ALPRAZolam (XANAX) 1 mg tablet Take 1 mg by mouth twice daily as needed. Problem List As Of Date 09/11/2023 Noted Resolved Seizure (HCC) [R56.9] 03/06/2021 Headaches [R51.9] 03/07/2021 Encounter Status:Closed by FRANCHESCA MAN on 09/11/23 [facility] Telephone (RADMN) ----- SULLY ENRIQUEZ ([id number]) 1990 F Date Time Provider Department 09/11/23 LOU MILLER RADMN During your visit today, we recorded the following information about you: Lou Miller, RN 09/11/2023 2:30 PM Signed Called patient to notify the breast pathology results are fibroadenoma per Dr. Almanzar. Patient will call back to assist with surgical consult appt. Dr. Almanzar is aware. Allergies As of Date: 09/11/2023 Noted Allergy Reaction CIPROFLOXACIN 03/06/2021 16 - Unknown DICYCLOMINE 03/06/2021 16 - Unknown KETOROLAC 03/06/2021 16 - Unknown LORAZEPAM 03/06/2021 16 - Unknown NITROFURANTOIN 03/06/2021 16 - Unknown PENICILLINS 03/06/2021 16 - Unknown REGLAN (METOCLOPRAMIDE) 03/06/2021 16 - Unknown ZITHROMAX (AZITHROMYCIN) 03/06/2021 16 - Unknown Date Reviewed: 09/08/2023 Reviewed by: Maritza Rodney RT(R) - Fully Assessed Reason for Visit: Results [95] Prescriptions as of 09/11/2023 - ALPRAZolam (XANAX) 1 mg tablet Take 1 mg by mouth twice daily as needed. Problem List As Of Date 09/11/2023 Noted Resolved Seizure (HCC) [R56.9] 03/06/2021 Headaches [R51.9] 03/07/2021 Encounter Status:Closed by LOU MILLER on 09/11/23 Normal [facility] DBT Breast - right diagnosti c for implanton 09-08-2023 * * *Final Report* * * DATE OF EXAM: Sep 08 2023 2:52PM [facility] 0629 - [facility] DIAG W DOMINIC RT / PROCEDURE REASON: multiple diagnoses * * * * Physician Interpretation * * * * RESULT: #[id number] - [facility] DIAG W DOMINIC RT #[id number] - [facility] US BIOPSY BREAST RT ULTRASOUND GUIDED BIOPSY RIGHT BREAST WITH MARKING DEVICE INSERTED AND POST DIGITAL MAMMOGRAPHIC AND ULTRASOUND IMAGIN09/08/2023 HISTORY: The patient presents for RIGHT ultrasound-guided right breast biopsy of a 2cm mass at 8:00 4-5cmFN - HYDROMARK open coil clip placed. Pre and post fire sonographic images were obtained and stored in permanent archive. Multiple Diagnoses. PATIENT CONSENT: A time out was performed immediately prior to procedure start with the radiology team, correctly identifying the patient name, date of , procedure, anatomy (including marking of site and side), patient position, relevant diagnostic and radiology test results, safety precautions, and procedure-specific equipment needs. The procedure was explained to the patient including the risks, benefits and alternatives. Medications and allergies were also reviewed. The risks, including but not limited to infection and bleeding, were reviewed by the performing physician and the patient agreed to undergo the procedure. The radiologist and technologist were present throughout the entire procedure. Dr. Almanzar performed the entire procedure without an energy assistant. Audible Time Out Time: 1420 Procedure Start Time: 1421 Procedure Stop Time: 1440 RIGHT ultrasound-guided right breast biopsy of a 2cm mass at 8:00 4-5cmFN - HYDROMARK open coil clip placed. Correlation is made to exams dated: 08/07/2023 [facility] and 06/25/2023 mammogram. An ultrasound guided biopsy using real-time ultrasound was performed for the concerning 2 cm mass located in the right breast at 8 o'clock 4 cm from the nipple. This was described on the previous mammography and ultrasound reports. The skin was prepped in the usual manner. Local anesthetic was administered to the access site. A skin radhiak was made in the breast. The abnormality was approached from the lateral aspect. A 12 gauge biopsy needle was placed adjacent to the abnormality through an introducer device under ultrasound guidance. Once the needle was documented to be in the correct location, four cores were obtained using a BARD biopsy device. A Hydromark open coil clip was inserted into the biopsy cavity. A skin closure strip and a sterile dressing were applied to the access site. Post procedure digital mammographic and ultrasound imaging demonstrates the location device at the targeted area. The specimens were sent to the laboratory for pathological analysis. DIVISION OF RADIOLOGY Provider, [facility] - 09/08/2023 * * *Final Report* * * DATE OF EXAM: Sep 08 2023 2:52PM [facility] 0629 - SAJI DIAG W DOMINIC RT / PROCEDURE REASON: multiple diagnoses * * * * Physician Interpretation * * * * RESULT: #[id number] - [facility] DIAG W DOMINIC RT #[id number] - [facility] US BIOPSY BREAST RT ULTRASOUND GUIDED BIOPSY RIGHT BREAST WITH MARKING DEVICE INSERTED AND POST DIGITAL MAMMOGRAPHIC AND ULTRASOUND IMAGIN09/08/2023 HISTORY: The patient presents for RIGHT ultrasound-guided right breast biopsy of a 2cm mass at 8:00 4-5cmFN - HYDROMARK open coil clip placed. Pre and post fire sonographic images were obtained and stored in permanent archive. Multiple Diagnoses. PATIENT CONSENT: A time out was performed immediately prior to procedure start with the radiology team, correctly identifying the patient name, date of , procedure, anatomy (including marking of site and side), patient position, relevant diagnostic and radiology test results, safety precautions, and procedure-specific equipment needs. The procedure was explained to the patient including the risks, benefits and alternatives. Medications and allergies were also reviewed. The risks, including but not limited to infection and bleeding, were reviewed by the performing physician and the patient agreed to undergo the procedure. The radiologist and technologist were present throughout the entire procedure. Dr. Almanzar performed the entire procedure without an energy assistant. Audible Time Out Time: 1420 Procedure Start Time: 1421 Procedure Stop Time: 1440 RIGHT ultrasound-guided right breast biopsy of a 2cm mass at 8:00 4-5cmFN - HYDROMARK open coil clip placed. Correlation is made to exams dated: 08/07/2023 ultrasound - [facility] and 06/25/2023 mammogram. An ultrasound guided biopsy using real-time ultrasound was performed for the concerning 2 cm mass located in the right breast at 8 o'clock 4 cm from the nipple. This was described on the previous mammography and ultrasound reports. The skin was prepped in the usual manner. Local anesthetic was administered to the access site. A skin radhika was made in the breast. The abnormality was approached from the lateral aspect. A 12 gauge biopsy needle was placed adjacent to the abnormality through an introducer device under ultrasound guidance. Once the needle was documented to be in the correct location, four cores were obtained using a [employer] biopsy device. A [employer] open coil clip was inserted into the biopsy cavity. A skin closure strip and a sterile dressing were applied to the access site. Post procedure digital mammographic and ultrasound imaging demonstrates the location device at the targeted area. The specimens were sent to the laboratory for pathological analysis. IMPRESSION IMPRESSION: ULTRASOUND GUIDED BIOPSY Ultrasound guided biopsy of the 2 cm mass in the right breast at 8 o'clock 4 cm from the nipple with placement of a clip was successful with no apparent post procedure complications. Waiting for pathology results. A final report will be issued when these become available. Lea Almanzar M.D., jr/aracely:09/08/2023 16:24:26 Printed Circuit Boards Inspector(s): RT Mane(Jd)(M), The [facility] Multiple national specialty organizations have released breast cancer screening guidelines for women at average risk for developing breast cancer - guidelines that are based on both evidence and opinion, yet differ on when to start and how often to screen for breast cancer. With representation from Breast Imaging, Internal Medicine, Women's Health, Family Medicine, and Medical/Surgical Oncology, the [facility] has carefully reviewed the data and reached the following consensus: 1) All women should engage in shared decision-making with their providers to decide when to start and how often to screen; 2) All women should have the opportunity to start screening mammography at age 40; 3) For women ages 45-55, we recommend annual screening mammograms; 4) For women ages 55 and over, we support both the transition from an annual to a biennial interval if this aligns more with patient's values and preferences, or continuation with annual screening; 5) All women should discuss with their providers when to stop screening mammograms. Product Safety Tester: Aracely Transcribe Date/Time: Sep 08 2023 2:52P Dictated by : LEA ALMANZAR MD This examination was interpreted and the report reviewed and electronically signed by: LEA ALMANZAR MD on Sep 08 2023 4:24PM [facility] SAJI DIAG W DOMINIC RTon 024 SAJI DIAG W DOMINIC RT * * *Final Report* * * * * * SEE BOTTOM OF REPORT FOR ADDENDED TEXT * * * DATE OF EXAM: Sep 08 2023 2:52PM [facility] 0629 - SAJI DIAG W DOMINIC RT / PROCEDURE REASON: multiple diagnoses * * * * Physician Interpretation * * * * RESULT: FINAL REPORT #[id number] - [facility] DIAG W DOMINIC RT #[id number] - [facility] US BIOPSY BREAST RT ULTRASOUND GUIDED BIOPSY RIGHT BREAST WITH MARKING DEVICE INSERTED AND POST DIGITAL MAMMOGRAPHIC AND ULTRASOUND IMAGIN09/08/2023 HISTORY: The patient presents for RIGHT ultrasound-guided right breast biopsy of a 2cm mass at 8:00 4-5cmFN - HYDROMARK open coil clip placed. Pre and post fire sonographic images were obtained and stored in permanent archive. Multiple Diagnoses. PATIENT CONSENT: A time out was performed immediately prior to procedure start with the radiology team, correctly identifying the patient name, date of , procedure, anatomy (including marking of site and side), patient position, relevant diagnostic and radiology test results, safety precautions, and procedure-specific equipment needs. The procedure was explained to the patient including the risks, benefits and alternatives. Medications and allergies were also reviewed. The risks, including but not limited to infection and bleeding, were reviewed by the performing physician and the patient agreed to undergo the procedure. The radiologist and technologist were present throughout the entire procedure. Dr. Almanzar performed the entire procedure without an energy assistant. Audible Time Out Time: 1420 Procedure Start Time: 1421 Procedure Stop Time: 1440 RIGHT ultrasound-guided right breast biopsy of a 2cm mass at 8:00 4-5cmFN - HYDROMARK open coil clip placed. Correlation is made to exams dated: 08/07/2023 [facility] and 06/25/2023 mammogram. An ultrasound guided biopsy using real-time ultrasound was performed for the concerning 2 cm mass located in the right breast at 8 o'clock 4 cm from the nipple. This was described on the previous mammography and ultrasound reports. The skin was prepped in the usual manner. Local anesthetic was administered to the access site. A skin ardhika was made in the breast. The abnormality was approached from the lateral aspect. A 12 gauge biopsy needle was placed adjacent to the abnormality through an introducer device under ultrasound guidance. Once the needle was documented to be in the correct location, four cores were obtained using a BARD biopsy device. A Netsize open coil clip was inserted into the biopsy cavity. A skin closure strip and a sterile dressing were applied to the access site. Post procedure digital mammographic and ultrasound imaging demonstrates the location device at the targeted area. The specimens were sent to the laboratory for pathological analysis. IMPRESSION: ULTRASOUND GUIDED BIOPSY BENIGN Ultrasound guided biopsy of the 2 cm mass in the right breast at 8 o'clock 4 cm from the nipple with placement of a clip was successful with no apparent post procedure complications. Pathology indicates benign fibroadenoma (FA). Pathology results are concordant with imaging findings. A surgical consultation is recommended. SUMMARY: Pathology results are BENIGN AND CONCORDANT as follows: FINAL DIAGNOSIS A. Right breast at 8 o'clock, 4-5 cm from nipple, ultrasound-guided core biopsy with coil clip placement: - Fibroadenoma. Recommendation is for surgical consultation to discuss management options, per request of the patient due to pain and size of 2cm. The patient was called with the results and recommendations on 09/11/2023 by a breast imaging nurse navigator who also scheduled the surgical consultation. Lea Almanzar M.D., jr/aracely:09/11/2023 14:32:49 Printed Circuit Boards Inspector(s): RT Mane(R)(M), [facility] Multiple national specialty organizations have released breast cancer screening guidelines for women at average risk for developing breast cancer - guidelines that are based on both evidence and opinion, yet differ on when to start and how often to screen for breast cancer. With representation from Breast Imaging, Internal Medicine, Women's Health, Family Medicine, and Medical/Surgical Oncology, the [facility] has carefully reviewed the data and reached the following consensus: 1) All women should engage in shared decision-making with their providers to decide when to start and how often to screen; 2) All women should have the opportunity to start screening mammography at age 40; 3) For women ages 45-55, we recommend annual screening mammograms; 4) For women ages 55 and over, we support both the transition from an annual to a biennial interval if this aligns more with patient's values and preferences, or continuation with annual screening; 5) All women should discuss with their providers when to stop screening mammograms. Product Safety Tester: (more content not included)... Normal [facility] US BIOPSY BREAST RTon [facility] US BIOPSY BREAST RT * * *Final Repor t* * * * * * SEE BOTTOM OF REPORT FOR ADDENDED TEXT * * * DATE OF EXAM: Sep 08 2023 2:52PM FLASH 0598 - [facility] US BIOPSY BREAST RT / PROCEDURE REASON: multiple diagnoses * * * * Physician Interpretation * * * * RESULT: FINAL REPORT #[id number] - [facility] DIAG W DOMINIC RT #[id number] - [facility] US BIOPSY BREAST RT ULTRASOUND GUIDED BIOPSY RIGHT BREAST WITH MARKING DEVICE INSERTED AND POST DIGITAL MAMMOGRAPHIC AND ULTRASOUND IMAGIN09/08/2023 HISTORY: The patient presents for RIGHT ultrasound-guided right breast biopsy of a 2cm mass at 8:00 4-5cmFN - HYDROMARK open coil clip placed. Pre and post fire sonographic images were obtained and stored in permanent archive. Multiple Diagnoses. PATIENT CONSENT: A time out was performed immediately prior to procedure start with the radiology team, correctly identifying the patient name, date of , procedure, anatomy (including marking of site and side), patient position, relevant diagnostic and radiology test results, safety precautions, and procedure-specific equipment needs. The procedure was explained to the patient including the risks, benefits and alternatives. Medications and allergies were also reviewed. The risks, including but not limited to infection and bleeding, were reviewed by the performing physician and the patient agreed to undergo the procedure. The radiologist and technologist were present throughout the entire procedure. Dr. Almanzar performed the entire procedure without an energy assistant. Audible Time Out Time: 1420 Procedure Start Time: 1421 Procedure Stop Time: 1440 RIGHT ultrasound-guided right breast biopsy of a 2cm mass at 8:00 4-5cmFN - HYDROMARK open coil clip placed. Correlation is made to exams dated: 08/07/2023 [facility] and 06/25/2023 mammogram. An ultrasound guided biopsy using real-time ultrasound was performed for the concerning 2 cm mass located in the right breast at 8 o'clock 4 cm from the nipple. This was described on the previous mammography and ultrasound reports. The skin was prepped in the usual manner. Local anesthetic was administered to the access site. A skin radhika was made in the breast. The abnormality was approached from the lateral aspect. A 12 gauge biopsy needle was placed adjacent to the abnormality through an introducer device under ultrasound guidance. Once the needle was documented to be in the correct location, four cores were obtained using a BARD biopsy device. A Netsize open coil clip was inserted into the biopsy cavity. A skin closure strip and a sterile dressing were applied to the access site. Post procedure digital mammographic and ultrasound imaging demonstrates the location device at the targeted area. The specimens were sent to the laboratory for pathological analysis. IMPRESSION: ULTRASOUND GUIDED BIOPSY BENIGN Ultrasound guided biopsy of the 2 cm mass in the right breast at 8 o'clock 4 cm from the nipple with placement of a clip was successful with no apparent post procedure complications. Pathology indicates benign fibroadenoma (FA). Pathology results are concordant with imaging findings. A surgical consultation is recommended. SUMMARY: Pathology results are BENIGN AND CONCORDANT as follows: FINAL DIAGNOSIS A. Right breast at 8 o'clock, 4-5 cm from nipple, ultrasound-guided core biopsy with coil clip placement: - Fibroadenoma. Recommendation is for surgical consultation to discuss management options, per request of the patient due to pain and size of 2cm. The patient was called with the results and recommendations on 09/11/2023 by a breast imaging nurse navigator who also scheduled the surgical consultation. Lea Almanzar M.D., jr/aracely:09/11/2023 14:32:49 Printed Circuit Boards Inspector(s): RT Mane(R)(M), The [facility] Multiple national specialty organizations have released breast cancer screening guidelines for women at average risk for developing breast cancer - guidelines that are based on both evidence and opinion, yet differ on when to start and how often to screen for breast cancer. With representation from Breast Imaging, Internal Medicine, Women's Health, Family Medicine, and Medical/Surgical Oncology, the [facility] has carefully reviewed the data and reached the following consensus: 1) All women should engage in shared decision-making with their providers to decide when to start and how often to screen; 2) All women should have the opportunity to start screening mammography at age 40; 3) For women ages 45-55, we recommend annual screening mammograms; 4) For women ages 55 and over, we support both the transition from an annual to a biennial interval if this aligns more with patient's values and preferences, or continuation with annual screening; 5) All women should discuss with their providers when to stop screening mammograms. Transcriptio (more content not included)... Normal [facility] No Panel Informationon 09-07 IMPRESSION: ULTRASOU ND GUIDED BIOPSY Ultrasound guided biopsy of the 2 cm mass in the right breast at 8 o'clock 4 cm from the nipple with placement of a clip was successful with no apparent post procedure complications. Waiting for pathology results. A final report will be issued when these become available. Lea Almanzar M.D., jr/aracely:09/08/2023 16:24:26 Printed Circuit Boards Inspector(s): RT Mane(R)(M), [facility] Multiple national specialty organizations have released breast cancer screening guidelines for women at average risk for developing breast cancer - guidelines that are based on both evidence and opinion, yet differ on when to start and how often to screen for breast cancer. With representation from Breast Imaging, Internal Medicine, Women's Health, Family Medicine, and Medical/Surgical Oncology, the [facility] has carefully reviewed the data and reached the following consensus: 1) All women should engage in shared decision-making with their providers to decide when to start and how often to screen; 2) All women should have the opportunity to start screening mammography at age 40; 3) For women ages 45-55, we recommend annual screening mammograms; 4) For women ages 55 and over, we support both the transition from an annual to a biennial interval if this aligns more with patient's values and preferences, or continuation with annual screening; 5) All women should discuss with their providers when to stop screening mammograms. Product Safety Tester: Aracely Transcribe Date/Time: Sep 08 2023 2:52P Dictated by : LEA ALMANZAR MD This examination was interpreted and the report reviewed and electronically signed by: LEA ALMANZAR MD on Sep 08 2023 4:24PM [facility] OF RADIOLOGY Radiology Study observation (narrative) [facility] No Panel InformationOrdered By: Ccf Provider on 09-08-2023 [facility] PT EDon 09-08-2023 PT ED HNO ID: [id number] Author: MARITZA RODNEY RT(R) Service: ? Author Type: Technologist Type: Patient Education Filed: 09/08/2023 14:03 Note Text: AMBULATORY PATIENT EDUCATION RADIOLOGY TOPIC: Pre- Procedure Teaching:Logistics / Protocols / Complication Prevention Post- Procedure Teaching: Symptom Management / Wound Care READINESS TO LEARN COGNITIVE ABILITY: Alert and oriented MOTIVATION TO LEARN: Interested FAMILY SUPPORT: Unable to assess - Family not present INSTRUCTION PROVIDED TO: Patient PATIENT LEARNS BEST BY: Individual Instruction Written Instruction - Hand-outs Verbal Instruction FACTORS AFFECTING LEARNING: None PHYSICAL LIMITATIONS AFFECTING LEARNING: None LEARNING RESPONSE Radiology Procedures Ultrasound Breast Clip Placement and Ultrasound Guided Breast Biopsy METHOD OF INSTRUCTION: Individual instruction Written instruction - handouts Verbal instruction PATIENT / FAMILY RESPONSE: Performs skill independently: Wound care FOLLOW-UP PLAN: Follow up phone call. SUPPLEMENTAL MATERIAL: Homegoing instructions REFERRAL (RECOMMENDATION): None Normal [facility] SURGICAL PATHOLOGYon 024 CASE REPORT Normal [facility] Comment on above: Order Comment: Speci men Type: TISSUE SPECIMEN Ordering Facility: [facility] Address: [address] [place] [address] Result Comment: Surg [facility] Pathology Report Case: [id number] Authorizing Provider: Lea Almanzar MD Collected: 09/08/2023 02:04 PM Ordering Location: Mammography Received: 09/08/2023 07:51 PM Pathologist: Pat Silveira MD Specimen: Breast, Right, Core Biopsy, 8:00 4-5cmfn 2cm mass ultrasound biopsy with hydromark open coil clip Performed By: #### S #### [facility] CLIA [id number] [address] [place] [address] [place] [facility] CLIA [id number] [address] [place] [address] FINAL DIAGNOSIS Normal [facility] Comment on above: Order Comment: Speci men Type: TISSUE SPECIMEN Ordering Facility: [facility] Address: [address] [place] [address] Result Comment: A. R ight breast at 8 o'clock, 4-5 cm from nipple, ultrasound-guided core biopsy with coil clip placement: - Fibroadenoma. Performed By: #### S #### [facility] CLIA [id number] [address] [place] [address] OF [facility] CLIA [id number] [address] [place] [address] OF [place] [facility] Normal [facility] Comment on above: Order Comment: Speci men Type: TISSUE SPECIMEN Ordering Facility: [facility] Address: [address] [place] [address] Result Comment: Diag nostic interpretation performed at [facility], [address] [place] [address] CLIA# [id number] Rod And Tube Straightener: Columba Villasenor M.D. Performed By: #### S #### [facility] CLIA [id number] [address] [place] [address] OF [facility] CLIA [id number] [address] [place] [address] GROSS DESCRIPTION Normal [facility] Comment on above: Order Comment: Speci men Type: TISSUE SPECIMEN Ordering Facility: [facility] Address: [address] [place] [address] Result Comment: A. B reast, Right, Core Biopsy Received in formalin labeled as ``right breast? are multiple segments of cylindrical tissue aggregating to 2.4 x 1.0 x 0.2 cm, vazquez-white to brown and of a soft consistency. The specimen was removed from the patient at 2:04 PM on 09/08/2023. On the same day, the specimen was placed in formalin at 2:36 PM. Totally submitted in formalin in one cassette. Performed By: #### S #### [facility] CLIA [id number] [address] [place] [address] [place] [facility] CLIA [id number] [address] [place] Guidance for biopsy of Br east - righton 09-08-2023 * * *Final Report* * * DATE OF EXAM: Sep 08 2023 2:52PM [facility] 0598 - [facility] US BIOPSY BREAST RT / PROCEDURE REASON: multiple diagnoses * * * * Physician Interpretation * * * * RESULT: #[id number] - [facility] DIAG W DOMINIC RT #[id number] - [facility] US BIOPSY BREAST RT ULTRASOUND GUIDED BIOPSY RIGHT BREAST WITH MARKING DEVICE INSERTED AND POST DIGITAL MAMMOGRAPHIC AND ULTRASOUND IMAGIN09/08/2023 HISTORY: The patient presents for RIGHT ultrasound-guided right breast biopsy of a 2cm mass at 8:00 4-5cmFN - HYDROMARK open coil clip placed. Pre and post fire sonographic images were obtained and stored in permanent archive. Multiple Diagnoses. PATIENT CONSENT: A time out was performed immediately prior to procedure start with the radiology team, correctly identifying the patient name, date of , procedure, anatomy (including marking of site and side), patient position, relevant diagnostic and radiology test results, safety precautions, and procedure-specific equipment needs. The procedure was explained to the patient including the risks, benefits and alternatives. Medications and allergies were also reviewed. The risks, including but not limited to infection and bleeding, were reviewed by the performing physician and the patient agreed to undergo the procedure. The radiologist and technologist were present throughout the entire procedure. Dr. Almanzar performed the entire procedure without an energy assistant. Audible Time Out Time: 1420 Procedure Start Time: 1421 Procedure Stop Time: 1440 RIGHT ultrasound-guided right breast biopsy of a 2cm mass at 8:00 4-5cmFN - HYDROMARK open coil clip placed. Correlation is made to exams dated: 08/07/2023 [facility] and 06/25/2023 mammogram. An ultrasound guided biopsy using real-time ultrasound was performed for the concerning 2 cm mass located in the right breast at 8 o'clock 4 cm from the nipple. This was described on the previous mammography and ultrasound reports. The skin was prepped in the usual manner. Local anesthetic was administered to the access site. A skin radhika was made in the breast. The abnormality was approached from the lateral aspect. A 12 gauge biopsy needle was placed adjacent to the abnormality through an introducer device under ultrasound guidance. Once the needle was documented to be in the correct location, four cores were obtained using a BARD biopsy device. A Hydromark open coil clip was inserted into the biopsy cavity. A skin closure strip and a sterile dressing were applied to the access site. Post procedure digital mammographic and ultrasound imaging demonstrates the location device at the targeted area. The specimens were sent to the laboratory for pathological analysis. DIVISION OF RADIOLOGY Provider, [facility] - 09/08/2023 * * *Final Report* * * DATE OF EXAM: Sep 08 2023 2:52PM [facility] 0598 - [facility] US BIOPSY BREAST RT / PROCEDURE REASON: multiple diagnoses * * * * Physician Interpretation * * * * RESULT: #[id number] - [facility] DIAG W DOMINIC RT #[id number] - [facility] US BIOPSY BREAST RT ULTRASOUND GUIDED BIOPSY RIGHT BREAST WITH MARKING DEVICE INSERTED AND POST DIGITAL MAMMOGRAPHIC AND ULTRASOUND IMAGIN09/08/2023 HISTORY: The patient presents for RIGHT ultrasound-guided right breast biopsy of a 2cm mass at 8:00 4-5cmFN - HYDROMARK open coil clip placed. Pre and post fire sonographic images were obtained and stored in permanent archive. Multiple Diagnoses. PATIENT CONSENT: A time out was performed immediately prior to procedure start with the radiology team, correctly identifying the patient name, date of , procedure, anatomy (including marking of site and side), patient position, relevant diagnostic and radiology test results, safety precautions, and procedure-specific equipment needs. The procedure was explained to the patient including the risks, benefits and alternatives. Medications and allergies were also reviewed. The risks, including but not limited to infection and bleeding, were reviewed by the performing physician and the patient agreed to undergo the procedure. The radiologist and technologist were present throughout the entire procedure. Dr. Almanzar performed the entire procedure without an energy assistant. Audible Time Out Time: 1420 Procedure Start Time: 1421 Procedure Stop Time: 1440 RIGHT ultrasound-guided right breast biopsy of a 2cm mass at 8:00 4-5cmFN - HYDROMARK open coil clip placed. Correlation is made to exams dated: 08/07/2023 ultrasound - [facility] and 06/25/2023 mammogram. An ultrasound guided biopsy using real-time ultrasound was performed for the concerning 2 cm mass located in the right breast at 8 o'clock 4 cm from the nipple. This was described on the previous mammography and ultrasound reports. The skin was prepped in the usual manner. Local anesthetic was administered to the access site. A skin radhika was made in the breast. The abnormality was approached from the lateral aspect. A 12 gauge biopsy needle was placed adjacent to the abnormality through an introducer device under ultrasound guidance. Once the needle was documented to be in the correct location, four cores were obtained using a [employer] biopsy device. A Hydromark open coil clip was inserted into the biopsy cavity. A skin closure strip and a sterile dressing were applied to the access site. Post procedure digital mammographic and ultrasound imaging demonstrates the location device at the targeted area. The specimens were sent to the laboratory for pathological analysis. IMPRESSION IMPRESSION: ULTRASOUND GUIDED BIOPSY Ultrasound guided biopsy of the 2 cm mass in the right breast at 8 o'clock 4 cm from the nipple with placement of a clip was successful with no apparent post procedure complications. Waiting for pathology results. A final report will be issued when these become available. Lea Almanzar M.D., jr/aracely:09/08/2023 16:24:26 Printed Circuit Boards Inspector(s): RT Mane(R)(M), The [facility] Stella Multiple national specialty organizations have released breast cancer screening guidelines for women at average risk for developing breast cancer - guidelines that are based on both evidence and opinion, yet differ on when to start and how often to screen for breast cancer. With representation from Breast Imaging, Internal Medicine, Women's Health, Family Medicine, and Medical/Surgical Oncology, the [facility] has carefully reviewed the data and reached the following consensus: 1) All women should engage in shared decision-making with their providers to decide when to start and how often to screen; 2) All women should have the opportunity to start screening mammography at age 40; 3) For women ages 45-55, we recommend annual screening mammograms; 4) For women ages 55 and over, we support both the transition from an annual to a biennial interval if this aligns more with patient's values and preferences, or continuation with annual screening; 5) All women should discuss with their providers when to stop screening mammograms. Product Safety Tester: Aracely Transcribe Date/Time: Sep 08 2023 2:52P Dictated by : LEA ALMANZAR MD This examination was interpreted and the report reviewed and electronically signed by: LEA ALMANZAR MD on Sep 08 2023 4:24PM [facility] - Chemistry and C hemistry - challengeon 09-02-2023 Free T4 [Mass/Vol] 0.98 ng/dL 0.76-1.46 [facility] TSH Qn 3.388 m[IU]/L 0.358-3.740 [facility] No Panel Informationon 09-01 Free Triiodothyronine 2.79 pg/mL 2.18-3.98 [facility] CNPNon 08-11-2023 CNPN Telephone (BRCRMN) ----- SULLY ENRIQUEZ ([id number]) 1990 F Date Time Provider Department 08/11/23 FRANCHESCA MAN [facility] During your visit today, we recorded the following information about you: Franchesca Man PA-C 08/11/2023 10:03 AM Signed Spoke to patient and gave her results of over-read. She wants to proceed with biopsy. Order placed. Allergies As of Date: 08/11/2023 Noted Allergy Reaction CIPROFLOXACIN 03/06/2021 16 - Unknown DICYCLOMINE 03/06/2021 16 - Unknown KETOROLAC 03/06/2021 16 - Unknown LORAZEPAM 03/06/2021 16 - Unknown NITROFURANTOIN 03/06/2021 16 - Unknown PENICILLINS 03/06/2021 16 - Unknown REGLAN (METOCLOPRAMIDE) 03/06/2021 16 - Unknown ZITHROMAX (AZITHROMYCIN) 03/06/2021 16 - Unknown Date Reviewed: 08/07/2023 Reviewed by: Kenia Peters MA - Fully Assessed Prescriptions as of 08/11/2023 - ALPRAZolam (XANAX) 1 mg tablet Take 1 mg by mouth twice daily as needed. Problem List As Of Date 08/11/2023 Noted Resolved Seizure (HCC) [R56.9] 03/06/2021 Headaches [R51.9] 03/07/2021 Encounter Status:Closed by FRANCHESCA MAN on 08/11/23 Normal [facility] CNOVon 08-07-2023 CNOV Office Visit (BRCRMN ) ----- SULLY ENRIQUEZ ([id number]) 1990 F Date Time Provider Department 08/07/23 10:30 AM [facility] During your visit today, we recorded the following information about you: Weight Height 105.2 kg 1.651 m Franchesca Man PA-C 08/07/2023 2:26 PM Signed MEDICAL BREAST PATIENT NAME: Sully Enriquez 08/07/2023 REFERRAL: She is self referred for an opinion regarding right breast biopsy. HISTORY of PRESENT ILLNESS: Sully Enriquez is a 33 year old year old premenopausal woman who presents to the [facility] [place] today for second opinion of right breast biopsy. The patient denies any breast skin changes. She reports 1 year history of bilateral diffuse breast pain R>L. She also reports bilateral milky nipple discharge for the past year. She notices this as a white crusting on her bra most days. She hasn't breast fed in 13 years. She was seen for her breast related issues at [facility] with care as follows: 06/25/23: Diagnostic bilateral DBT and US at [facility]): - RIGHT breast 8oclock 4-5cmfn hypoechoic 2cm mass with lobulated margins. -right upper outer quadrant of the breast lymph node is seen. There is no cortical thickening. -Dilated ducts are seen in the right upper and lower outer quadrants of the breast. Recommend ultrasound-guided biopsy of a hypoechoic area seen at 8:00, 4 to 5cmfn in the right breast. 07/07/23: US guided right breast biopsy (8oclock 4-5cmfn) with clip placement with pathology showing: -fibrocystic change. This is concordant with imaging findings which were suspicious for a fibroadenoma. Recommendation: Six-month ultrasound follow-up of the right breast is recommended to assess for stability. Today she is here for a second opinion. Has Patient had Genetic Testing? No Her vitamin D level was No results found for: VITD25 . She takes no supplements. BMD: No PERSONAL BREAST HISTORY: Past breast history (prior to this encounter) is as follows: Breast biopsy: 07/07/23 right breast 8oclock 4-5cmfn, fibrocystic change, concordant Breast cysts: No Breast surgery: No Breast cancer: No CANCER SURVEILLANCE: Mammograms: 06/25/23 asymmetry seen in the posterior superior and lateral aspect of right breast leading to US and negative biopsy Breast MRI: No Colonoscopy: Yes patient reported in 2023, ascending colon polyp RISK FACTORS FOR BREAST CANCER: Age at the onset of menses: 12 P: 4 Age at the of first child: 15 years of age. She did not breast feed. Age at menopause: The patient is not menopausal at this time. Post-menopausal hormone therapy: No She is s/p hysterectomy for endometriosis. She does not use any control. History of Mantle Radiation prior to the age of 29: No Obesity: Yes, 38.61 kg/m Current Weight: 232 lb Mammographic density: The breasts are heterogeneously dense which limits the sensitivity of mammography Personal History of Benign Atypical Breast Biopsy: No Alcohol use: occasional PAST MEDICAL HISTORY: No past medical history on file. Patient specifically denies history of: DVT, PE, migraine headaches WITH AURA, migraine headaches without aura, abnormal uterine bleeding, abnormal uterine biopsies, osteopenia, osteoporosis, and kidney stones. PAST SURGICAL HISTORY: No past surgical history on file. SOCIAL HISTORY: Caffeine intake: 1 soda / day Exercise: 1-2 times weekly FAMILY HISTORY: Family history of breast cancer: paternal grandmother, unsure of age, no genetic testing Family history of ovarian cancer: None Number of sisters: 2 Number of maternal aunts: 2 Number of paternal aunts: 6 Ashkenazi Ancestry: no Other Cancer: father with lung cancer, living There is no family history of prostate, colon, uterine, pancreatic, gastric, brain, renal cell or thyroid cancer. There is no family history of melanoma, sarcoma or leukemia. Osteoporosis: None Stroke: None Blood Clot: None Heart attack: father Thyroid Nodule or Goiter: None Autism: None No family history on file. MEDICATIONS: ALPRAZolam (XANAX) 1 mg tablet Take 1 mg by mouth twice daily as needed. ALLERGIES: ALLERGIES Allergen Reactions Ciprofloxacin Unknown Dicyclomine Unknown Ketorolac Unknown Lorazepam Unknown Nitrofurantoin Unknown Penicillins Unknown Reglan [Metoclopram* Unknown Zithromax [Azithrom* Unknown REVIEW OF SYSTEMS: The patient specifically denies unintentional weight loss, insomnia, hot flashes, night sweats, abnormal swelling in the arms or legs, chest pain, shortness of breath, persistant cough, heartburn, urinary incontinence, vaginal dryness, decreased libido, unusual bony pains or severe headaches. +insomnia, hot flashes/night sweats PHYSICAL EXAM: Ht 165.1 cm (5' 5 ) Wt 105.2 kg (232 lb) (more content not included)... Normal [facility] [employer] BREAST Jump or Fall RTon 08-06 [facility] Up[employer] BREAST Jump or Fall RT * * *Final Report* * * DATE OF EXAM: Aug 07 2023 12:08PM FLASH 0594 - [facility] [employer] RT / PROCEDURE REASON: multiple diagnoses * * * * Physician Interpretation * * * * RESULT: #[id number] - [facility] [employer] BREAST Jump or Fall RT LIMITED ULTRASOUND OF RIGHT BREAST: 08/07/2023 HISTORY: Right breast pain. RESULT: Comparison is made to exam dated: 06/25/2023 mammogram. Color flow ultrasound of the right breast 8-9 o'clock region was performed. Cam scale images of the real-time examination were reviewed. 9:00, 9 cm from the nipple there is no sonographic abnormality to correlate with area of clinical concern. 8:00, 4-5 cm from nipple the site of pain there is a oval circumscribed hypoechoic mass that is 2 x 0.9 x 1.3 cm. This is noted on outside imaging and correlates with the recently biopsied mass which is reportedly benign. IMPRESSION: BENIGN FINDING No sonographic abnormality at the site of clinical concern at 9:00. Circumscribed mass right breast 8:00 which is previously biopsied and reportedly benign. Clinical follow-up is recommended. Annual screening mammogram is recommended per NCCN guidelines based on patient's risk factors for breast cancer. Janes Winston M.D. ns/:08/07/2023 13:24:03 Printed Circuit Boards Inspector(s): RT Mirtha(R)(M), The [facility]ella Ultrasound BI-RADS: 2 Benign finding Multiple national specialty organizations have released breast cancer screening guidelines for women at average risk for developing breast cancer - guidelines that are based on both evidence and opinion, yet differ on when to start and how often to screen for breast cancer. With representation from Breast Imaging, Internal Medicine, Women's [facility], Family Medicine, and Medical/Surgical Oncology, the [facility] has carefully reviewed the data and reached the following consensus: 1) All women should engage in shared decision-making with their providers to decide when to start and how often to screen; 2) All women should have the opportunity to start screening mammography at age 40; 3) For women ages 45-55, we recommend annual screening mammograms; 4) For women ages 55 and over, we support both the transition from an annual to a biennial interval if this aligns more with patient's values and preferences, or continuation with annual screening; 5) All women should discuss with their providers when to stop screening mammograms. Product Safety Tester: Aracely Transcribe Date/Time: Aug 07 2023 11:56A Dictated by : JANES WINSTON MD This examination was interpreted and the report reviewed and electronically signed by: JANES WINSTON MD on Aug 07 2023 1:24PM EST [id number] Normal [facility] US Breast - right limitedon 08-07-2023 [facility] CNPNon 07-30-2023 CNPN Telephone (BRBD) ----- ZOESULLY Alyse ([id number]) 1990 F Date Time Provider Department 07/30/23 FRANCHESCA MAN During your visit today, we recorded the following information about you: Kenia Peters MA 07/30/2023 11:00 AM Signed Spoke with patient she is coming in because she states that she had a biopsy 06/2023 and was told it was fibroadenoma. Patient states that she feels like her provider is not giving her all the information and would like a second opinion. She was seen at [facility] in [place] I will reach out to them to retrieve any information and imaging needed for her appointment 08/07/23 with Franchesca FINNEGAN in the Breast Center [facility] contact number is [phone]. Kenia Peters MA Allergies As of Date: 07/30/2023 Noted Allergy Reaction CIPROFLOXACIN 03/06/2021 16 - Unknown DICYCLOMINE 03/06/2021 16 - Unknown KETOROLAC 03/06/2021 16 - Unknown LORAZEPAM 03/06/2021 16 - Unknown NITROFURANTOIN 03/06/2021 16 - Unknown PENICILLINS 03/06/2021 16 - Unknown REGLAN (METOCLOPRAMIDE) 03/06/2021 16 - Unknown ZITHROMAX (AZITHROMYCIN) 03/06/2021 16 - Unknown Date Reviewed: 03/06/2021 Reviewed by: Breanne Reis, JUS - Fully Assessed Prescriptions as of 07/30/2023 - ALPRAZolam (XANAX) 1 mg tablet Take 1 mg by mouth twice daily as needed. Problem List As Of Date 07/30/2023 Noted Resolved Seizure (HCC) [R56.9] 03/06/2021 Headaches [R51.9] 03/07/2021 Encounter Status:Closed by KENIA PETERS on 07/30/23 Normal [facility] Basophils Auto (Bld) [#/Vol] on 07-25-2023 Basophils (Bld) [#/Vol] 0.0 10 3/uL 0.0-0.1 [facility] Basophils/100 WBC Auto (Bld) on 07-25-2023 Basophils/100 WBC (Bld) 0.3 % 0.2-2.0 F [facility] CNPNon 07-25-2023 CNPN Telephone (BRCRBD) ----- SULLY ENRIQUEZ ([id number]) 1990 F Date Time Provider Department 07/25/23 FRANCHESCA MAN BRTIMOTHY During your visit today, we recorded the following information about you: Kenia Peters MA 07/25/2023 12:59 PM Signed Called patient to discuss her upcoming appointment with Franchesca Man in the breast center. I left a message asking patient to call me back @[phone]. Kenia Peters MA Allergies As of Date: 07/25/2023 Noted Allergy Reaction CIPROFLOXACIN 03/06/2021 16 - Unknown DICYCLOMINE 03/06/2021 16 - Unknown KETOROLAC 03/06/2021 16 - Unknown LORAZEPAM 03/06/2021 16 - Unknown NITROFURANTOIN 03/06/2021 16 - Unknown PENICILLINS 03/06/2021 16 - Unknown REGLAN (METOCLOPRAMIDE) 03/06/2021 16 - Unknown ZITHROMAX (AZITHROMYCIN) 03/06/2021 16 - Unknown Date Reviewed: 03/06/2021 Reviewed by: Breanne Reis, RN - Fully Assessed Prescriptions as of 07/25/2023 - ALPRAZolam (XANAX) 1 mg tablet Take 1 mg by mouth twice daily as needed. Problem List As Of Date 07/25/2023 Noted Resolved Seizure (HCC) [R56.9] 03/06/2021 Headaches [R51.9] 03/07/2021 Encounter Status:Closed by KENIA PETERS on 07/25/23 [facility] Eosinophils/100 WBC Auto (Bl d)on 07-25-2023 Eosinophils/100 WBC (Bld) 0.5 % 0.9-7.0 [facility] Erythrocyte distribution wid th Auto (RBC) [Ratio]on 07-25-2023 Erythrocyte distribution width (RBC) [Ratio] 12.0 % 11.0-15.0 [facility] Estimated glomerular filtrat ion rate (GFR) non- Americanon 07-25-2023 GFR/1.73 sq M.predicted among non-blacks MDRD (S/P/Bld) [Vol rate/Area] mL/min/{1.73_m2} >=60 [facility] Globulin Calc (S) [Mass/Vol] on 07-25-2023 Globulin (S) [Mass/Vol] 3.4 g/dL [facility] HCG ( test) IA.rapi d Ql (U)on 07-25-2023 Beta HCG ( test) Ql (U) Negative NEGATIVE [facility] Hematocrit Auto (Bld) [Volum e fraction]on 07-25-2023 Hematocrit (Bld) [Volume fraction] 44.2 % 36.0-48.0 [facility] Hemoglobin [Mass/volume] in Bloodon 07-25-2023 Hemoglobin (Bld) [Mass/Vol] 14.5 g/dL 12.0-16.0 [facility] Laboratory - Chemistry and C hemistry - challengeon 07-25-2023 Albumin [Mass/Vol] 4.0 g/dL 3.4-5.0 [facility] ALP [Catalytic activity/Vol] 61 U/L 46-116 [facility] ALT [Catalytic activity/Vol] 25 U/L 14-59 [facility] AST [Catalytic activity/Vol] 13 U/L 15-37 [facility] Bilirubin [Mass/Vol] 0.6 mg/dL 0.2-1.0 [facility] Calcium [Mass/Vol] 8.8 mg/dL 8.5-10.1 [facility] Chloride [Moles/Vol] 103 mmol/L 98-107 [facility] CO2 [Moles/Vol] 24.0 mmol/L 21.0-32.0 [facility] Creatinine [Mass/Vol] 0.88 mg/dL 0.55-1.02 [facility] GFR/1.73 sq M.predicted MDRD (S/P/Bld) [Vol rate/Area] mL/min/{1.73_m2} >=60 [facility] Glucose [Mass/Vol] 99 mg/dL 74-106 [facility] Lipase [Catalytic activity/Vol] 23.0 U/L 16.0-77.0 [facility] Potassium [Moles/Vol] 3.9 mmol/L 3.5-5.1 [facility] Protein [Mass/Vol] 7.4 g/dL 6.4-8.2 [facility] Sodium [Moles/Vol] 138 mmol/L 136-145 [facility] Urea nitrogen [Mass/Vol] 10.0 mg/dL 7.0-18.0 [facility] Urea nitrogen/Creatinine [Mass ratio] 11.4 mg/mg [facility] Laboratory - Hematology and Cell countson 07-25-2023 Immature granulocytes/100 WBC (Bld) 0.3 % 0.0-0.5 [facility] Laboratory - Microbiology an d Antimicrobial susceptibilityon 07-25-2023 SARS-CoV-2 (COVID-19) RNA AZ+probe Ql (Unsp spec) Negative NEGATIVE [facility] Comment on above: This test has not be en FDA cleared or approved, but has beenauthorized by the FDA under an Emergency Use Authorization(EUA) for use by authorized laboratories certified underIA that meet the requirements to perform moderate or highcomplexity testing. This test has been authorized only forthe detection of proteins from SARS-CoV-2, not for any otherviruses or pathogens. The emergency use of this test isauthorized for the duration of the declaration thatcircumstances exist justifying the authorization ofemergency use of in vitro diagnostic tests for detectionand/or diagnosis of Covid-19 under section 564(b)(1) of theAct, 21 U.S.C. 360bbb-3(b)(1), unless the declaration isterminated or authorization is revoked sooner. Leukocytes [#/volume] correc armaan for nucleated erythrocytes in Blood by Automated counon 07-25-2023 WBC corrected for nucl RBC Auto (Bld) [#/Vol] 11.0 10 3/uL 4.0-11.0 [facility] Lymphocytes Auto (Bld) [#/Vo l]on 07-25-2023 Lymphocytes (Bld) [#/Vol] 0.8 10 3/uL 1.2-3.8 [facility] Lymphocytes/100 WBC Auto (Bl d)on 07-25-2023 Lymphocytes/100 WBC (Bld) 7.5 % 20.5-60.0 [facility] MCH Auto (RBC) [Entitic mass ]on 07-25-2023 MCH (RBC) [Entitic mass] 31.6 pg 26.7-34.0 [facility] MCHC Auto (RBC) [Mass/Vol]on 07-25-2023 MCHC (RBC) [Mass/Vol] 32.8 g/dL 29.9-35.2 [facility] MCV Auto (RBC) [Entitic vol] on 07-25-2023 MCV (RBC) [Entitic vol] 96.3 fL 81.0-99.0 [facility] Monocytes Auto (Bld) [#/Vol] on 07-25-2023 Monocytes (Bld) [#/Vol] 0.4 10 3/uL 0.3-0.8 [facility] Monocytes/100 WBC Auto (Bld) on 07-25-2023 Monocytes/100 WBC (Bld) 3.9 % 1.7-12.0 [facility] Neutrophils Auto (Bld) [#/Vo l]on 07-25-2023 Neutrophils (Bld) [#/Vol] 9.7 10 3/uL 1.4-6.5 [facility] Neutrophils/100 WBC Auto (Bl d)on 07-25-2023 Neutrophils/100 WBC (Bld) 87.5 % 43.0-75.0 [facility] No Panel Informationon 07-24 Bedside Influenza Type A Antigen Negative [facility] Comment on above: Negative for Flu A p rotein antigen. Infection due to Flu Acannot be ruled out. Flu A antigen in the sample may bebelow the detection limit of the test. Bedside Influenza Type B Antigen Negative [facility] Comment on above: Negative for Flu B p rotein antigen. Infection due to Flu Bcannot be ruled out. Flu B antigen in the sample may bebelow the detection limit of the test. Eosinophils # (Auto) 0.1 10 3/uL 0.0-0.7 [facility] Immature Granulocyte # (Auto) 0.03 10 3/uL 0.00-0.03 [facility] Platelet mean volume Auto (B ld) [Entitic vol]on 07-25-2023 Platelet mean volume (Bld) [Entitic vol] 10.4 fL 9.5-13.5 [facility] Platelets Auto (Bld) [#/Vol] on 07-25-2023 Platelets (Bld) [#/Vol] 194 10 3/uL 150-450 [facility] RBC Auto (Bld) [#/Vol]on RBC (Bld) [#/Vol] 4.59 10 6/uL 4.20-5.40 [facility] Serum or plasma albumin/glob ulin mass ratioon 07-25-2023 Albumin/Globulin [Mass ratio] 1.2 {ratio} [facility] Serum or plasma anion gap de terminationon 07-25-2023 Anion gap [Moles/Vol] 14.9 mmol/L [facility] Mitchel 07-07-2023 L Specimen: Received: 07/07/23 [facility] Num: [id number] Spec Type: Surgical Subm Dr: Pablo Lindo II, MD Tissues: A BREAST CORE NO CALCS (RT BREAST TISSUE) Procedures: HE/2, Gross/Micro L4, AE1-AE3, CK5 6 Age/ Patient Sex Location Account Attending Physician Sully Enriquez 33/F KYM [id number] Lucero Belle DO SPEC NUM: RECD: 07/07/23 STATUS: ALEJANDRA SALDIVAR NUM: [id number] MEGAN: 07/07/[address]: Pablo Lindo II, MD ENTERED: 07/07/23 [facility] DR: Lucero Belle DO SPEC TYPE: Surgical DEPT: S ORDERED: HE/2, Gross/Micro L4, AE1-AE3, CK5 6 ORDERED: HE/2, Gross/Micro L4, AE1-AE3, CK5 6 Pathological Diagnosis Lesion, Right Breast, Core Biopsy:?Fibrocystic Change. Confirmed with pankeratin and ck5/6 immunostain. Clinical Information Right breast lesion 8:00, 4-5 cm from nipple; next appointment on 07/14/2023 Gross Description Received in formalin labeled with the patient's name, date of and right breast is a 2.7 x 1.0 x 0.3 cm aggregate of cores of fibrofatty breast tissue. Entirely submitted in one cassette labeled A1. Time of excision: 11:18 AM 07/07/2023, time in formalin: 11:23 AM 07/07/2023, time out of formalin: 6 PM 07/07/2023. Cold Ischemia and Fixation Time meets the requirements specified in the latest version of the ASCO/CAP guidelines: Yes. Cold Ischemic Time: 0.08 Formalin Fixation Time: 6.62 Specimen: [id number] Received: 07/07/23 Status: ALEJANDRA Marvin Num: [id number] Spec Type: Surgical Subm Dr: Pablo Lindo II, MD Tissues: A BREAST CORE NO CALCS (RT BREAST TISSUE) Procedures: HE/2, Gross/Micro L4, AE1-AE3, CK5 6 Patient: Sully Enriquez [id number] (Continued) Specimen: Received: 07/07/23 (Continued) Signed (signature on file) Mireya Garcia MD 07/09/231648 Specimen: Received: 07/07/23 Status: ALEJANDRA Wong Num: [id number] Spec Type: Surgical Subm Dr: Pablo Lindo II, MD Tissues: A BREAST CORE NO CALCS (RT BREAST TISSUE) Procedures: HE/2, Gross/Micro L4, AE1-AE3, CK5 6 Patient: Sully Enriquez [id number] (Continued) Specimen: Received: 07/07/23 (Continued) CPT Codes 23956 Specimen: Received: 07/07/23 Status: ALEJANDRA Wong Num: [id number] Spec Type: Surgical Subm Dr: Pablo Lindo II, MD Tissues: A BREAST CORE NO CALCS (RT BREAST TISSUE) Procedures: HE/2, Gross/Micro L4, AE1-AE3, CK5 6 Patient: Sully Enriquez [id number] (Continued) Signed (signature on file) Mireya Garcia MD 07/09/23 1649 Normal [facility] US breast ndl core biopsy RT on 07-07-2023 US breast ndl core biopsy RT [facility] [address] [place] [address] Ultrasound Report Signed Patient: Sully Enriquez MR#: [id number] : 1990 Acct:[id number] Age/Sex: 33 / F ADM Date: 07/07/23 Loc: [facility] Room: Type: [facility] Attending Dr: Lucero Belle DO Ordering Provider: Lucero Belle DO Date of Service: 07/07/23 US/US breast ndl core biopsy RT: R92.8 ([id number]) MM/MM post biopsy RT w/CAD: POST U/S BX WITH CLIP Copies to: Lucero Belle DO ADDENDUM Final pathology: Fibrocystic change. No evidence of malignancy. This is concordant with imaging findings which were suspicious for a fibroadenoma. Recommendation: Six-month ultrasound follow-up of the right breast is recommended to assess for stability. Impression dictated by: Pablo Lindo M.D.07/10/2023 8:25 AM ULTRASOUND GUIDED VACUUM-ASSISTED HOLOGIC ATEC SYSTEM CORE BIOPSIES OF THE RIGHT BREAST: CLINICAL DATA: Right breast mass PROCEDURE: The risks, benefits and alternatives to an ultrasound guided vacuum-assisted Hologic ATEC system core biopsy procedure were discussed with the patient and written informed consent was obtained. Ultrasonographic survey of the upper outer quadrant of the right breast was performed by ep technologist as well as myself. At the 8:00 position 4 to 5 cm from nipple there is a hypoechoic 2.0 x 1.0 x 1.7 cm mass with lobulated margins. The patient's overlying skin was anesthetized with 1% lidocaine. The deeper soft tissues up to and around the lesion were anesthetized with lidocaine mixed with epinephrine. Following this, multiple core biopsies of the right breast lesion at the 8:00 position were performed using a 12-gauge Suros vacuum-assisted core biopsy needle under ultrasound guidance. Multiple core biopsy specimens were obtained. A metallic post biopsy marker was then placed. Post procedure mammograms were performed. The patient tolerated the procedure well without immediate postprocedural complication. POSTPROCEDURE MAMMOGRAMS: Craniocaudal and mediolateral oblique views of the right breast were performed using low dose digital technique and compared to the previous ultrasound and mammograms dated 06/25/2023. A small metallic marking clip is demonstrated within the upper outer quadrant of the right breast where the ultrasound guided core biopsy was performed. IMPRESSION: STATUS POST ULTRASOUND GUIDED VACUUM-ASSISTED CORE BIOPSIES OF THE RIGHT BREAST. RESULT CODE: NL Impression dictated by: Pablo Lindo M.D.07/07/2023 11:55 AM Tech: Theresa Ruiz Transcribed By: 07/07/23 1239 Dictated By: Pablo Lindo II, MD 07/07/23 1155 Signed By: 07/10/23 0836 [facility] BI MAMMOGRAM DIAGNOSTIC DOMINIC SYNTHESIS BILATERALon 06-25-2023 BI MAMMOGRAM DIAGNOSTIC TOMOSYNTHESIS BILATERAL This is a summary report. The complete report is available in the patient's medical record. If you cannot access the medical record, please contact the sending organization for a detailed fax or copy. BI US BREAST COMPLETE BILATERAL, BI MAMMOGRAM DIAGNOSTIC TOMOSYNTHESIS BILATERAL : 06/25/2023 10:31 AM CLINICAL HISTORY: breast tenderness. COMPARISONS: Mammogram, June 28, 2019; ultrasound of the breast June 23, 2020. TECHNIQUE: Routine full field 3D breast tomosynthesis was performed bilaterally. CAD analysis was performed and used in the interpretation. FINDINGS: Both breasts remain heterogeneously dense. This may decrease the sensitivity of this examination to detect occult masses. In the posterior superior and lateral aspect of the right breast an asymmetry is seen. There are no dominant masses, suspicious microcalcifications, or areas of architectural distortion identified on today's examination in the left breast. Ultrasound of both breasts was performed. In the right breast at 8:00 approximately 4 to 5 cm from the nipple, is a hypoechoic avascular area that measures 2.0 x 1.6 x 1.1 cm. In the right upper outer quadrant of the breast at 2.8 x 1.0 x 2.8 cm lymph node is seen. There is no cortical thickening. Dilated ducts are seen in the right upper and lower outer quadrants of the breast. Ultrasound of the left breast was performed in the subareolar region, left upper outer and inner quadrants, left lower outer and lower inner quadrants. No focal mass or fluid collection is seen. IMPRESSION: BI-RADS 4: SUSPICIOUS FINDING--BIOPSY SHOULD BE CONSIDERED. Recommend ultrasound-guided biopsy of a hypoechoic area seen at 8:00, 4 to 5 cm from the nipple in the right breast. Recommend management of the left breast based on clinical findings. No focal mass or fluid collection seen in the left breast. Board Certified Radiologists. Accredited by the ACR and FDA. MAMMOGRAPHY IS VERY IMPORTANT TO YOUR HEALTH. THE [employer] GUIDELINES RECOMMEND THAT WOMEN 40 YEARS OF AGE AND OLDER SHOULD HAVE A MAMMOGRAM EVERY YEAR. A REMINDER LETTER WILL BE SENT AT THE APPROPRIATE TIME. ELECTRONICALLY SIGNED BY: Sam Fox, DO Abnormal Not Available [facility] BI US BREAST COMPLETE BILATERAL This is a summary report. The complete report is available in the patient's medical record. If you cannot access the medical record, please contact the sending organization for a detailed fax or copy. BI US BREAST COMPLETE BILATERAL, BI MAMMOGRAM DIAGNOSTIC TOMOSYNTHESIS BILATERAL : 06/25/2023 10:31 AM CLINICAL HISTORY: breast tenderness. COMPARISONS: Mammogram, June 28, 2019; ultrasound of the breast June 23, 2020. TECHNIQUE: Routine full field 3D breast tomosynthesis was performed bilaterally. CAD analysis was performed and used in the interpretation. FINDINGS: Both breasts remain heterogeneously dense. This may decrease the sensitivity of this examination to detect occult masses. In the posterior superior and lateral aspect of the right breast an asymmetry is seen. There are no dominant masses, suspicious microcalcifications, or areas of architectural distortion identified on today's examination in the left breast. Ultrasound of both breasts was performed. In the right breast at 8:00 approximately 4 to 5 cm from the nipple, is a hypoechoic avascular area that measures 2.0 x 1.6 x 1.1 cm. In the right upper outer quadrant of the breast at 2.8 x 1.0 x 2.8 cm lymph node is seen. There is no cortical thickening. Dilated ducts are seen in the right upper and lower outer quadrants of the breast. Ultrasound of the left breast was performed in the subareolar region, left upper outer and inner quadrants, left lower outer and lower inner quadrants. No focal mass or fluid collection is seen. IMPRESSION: BI-RADS 4: SUSPICIOUS FINDING--BIOPSY SHOULD BE CONSIDERED. Recommend ultrasound-guided biopsy of a hypoechoic area seen at 8:00, 4 to 5 cm from the nipple in the right breast. Recommend management of the left breast based on clinical findings. No focal mass or fluid collection seen in the left breast. Board Certified Radiologists. Accredited by the ACR and FDA. MAMMOGRAPHY IS VERY IMPORTANT TO YOUR HEALTH. THE [employer] SOCIET[employer] GUIDELINES RECOMMEND THAT WOMEN 40 YEARS OF AGE AND OLDER SHOULD HAVE A MAMMOGRAM EVERY YEAR. A REMINDER LETTER WILL BE SENT AT THE APPROPRIATE TIME. ELECTRONICALLY SIGNED BY: Sam Fox, DO Abnormal Not Available Alanine aminotransferase [En zymatic activity/volume] in Serum or PlasmaOrdered By: Bhanu Alvarez on 06-03-2023 ALT [Catalytic activity/Vol] 19 U/L 7-52 [facility] Comment on above: Order Comment: Adithya gramajo-requested redraw @ 1442. MLG Performed By: #### C MP, PRL, CBC ####[facility] [id number] Albumin [Mass/volume] in Ser um or Plasma by Bromocresol green (BCG) dye binding methoOrdered By: Bhanu Alvarez on 06-03-2023 Albumin BCG dye [Mass/Vol] 4.6 g/dL 3.5-5.7 [facility] Alkaline phosphatase [Enzyma tic activity/volume] in Serum or PlasmaOrdered By: Bhanu Alvarez on 06-03-2023 ALP [Catalytic activity/Vol] 46 U/L 34-104 [facility] Comment on above: Order Comment: Adithya gramajo-requested redraw @ 1442. MLG Performed By: #### C MP, PRL, CBC ####[facility] [id number] [place] [id number] [facility] Amphetamine Screen Ql (U)Ord ered By: Bhanu Alvarez on 06-03-2023 Amphetamines Ql (U) Negative Negative [facility] Aspartate aminotransferase [ Enzymatic activity/volume] in Serum or PlasmaOrdered By: Bhanu Alvarez on 06-03-2023 AST [Catalytic activity/Vol] 14 U/L [facility] Comment on above: Order Comment: Hemol yzed-requested redraw @ 1442. MLG Performed By: #### C MP, PRL, CBC ####[facility] [id number] [address] Barbiturates [Presence] in U rine by Screen methodOrdered By: Bhanu Alvarez on 06-03-2023 Barbiturates Screen Ql (U) Negative Negative [facility] Basophils Auto (Bld) [#/Vol] Ordered By: Bhanu Alvarez on 06-03-2023 Basophils (Bld) [#/Vol] 0.0 10*3/uL 0.0-0.2 [facility] Basophils/100 WBC Auto (Bld) Ordered By: Bhanu Alvarez on 06-03-2023 Basophils/100 WBC (Bld) 0.6 % . F [facility] Benzodiazepines Screen Ql (U )Ordered By: Bhanu Alvarez on 06-03-2023 Benzodiazepines Ql (U) Positive Negative [facility] Benzoylecgonine [Presence] i n Urine by Screen methodOrdered By: Bhanu Alvarez on 06-03-2023 Benzoylecgonine Screen Ql (U) Negative Negative [facility] Bilirubin Test strip Ql (U)O rdered By: Bhanu Alvarez on 06-03-2023 Bilirubin Ql (U) Negative Negative [facility] Bilirubin.total [Mass/volume ] in Serum or PlasmaOrdered By: Bhanu Alvarez on 06-03-2023 Bilirubin [Mass/Vol] 0.4 mg/dL 0.3-1.0 [facility] Comment on above: Order Comment: Hemol yzed-requested redraw @ 1442. MLG Performed By: #### C MP, PRL, CBC ####[facility] [id number] angio chest PE protocolon 06-03-2023 CT angio chest PE protocol [facility] [place] [address] [place] [address] CT Scan Report Signed Patient: Sully Enriquez MR#: [id number] : 1990 Acct:[id number] Age/Sex: 33 / F ADM Date: 06/03/23 Loc: ER Room: Type: [facility] ER Attending Dr: Copies to: Bhanu Alvarez PA-C Ordering Provider: Bhanu Alvarez PA-C Date of Service: 06/03/23 CT/CT angio chest PE protocol: chest pain elevated dimer CT ANGIOGRAM OF THE CHEST, PULMONARY EMBOLISM PROTOCOL: CLINICAL INFORMATION: Epigastric chest pain with tingling and shoulder. COMPARISON: TECHNIQUE: Following intravenous injection of contrast CT scans of the chest were obtained using pulmonary embolism protocol. Coronal and sagittal reconstructed images, as well as volume rendered CT pulmonary angiographic images were also submitted.The CT exam was performed using one or more of the following dose reduction techniques: Automated exposure control, adjustment of the MA and/or Kv according to patient size, or use of the iterative reconstruction technique. FINDINGS: Pulmonary Vasculature: Contrast bolus is adequate for evaluation of pulmonary embolism. Pulmonary trunk appears nondilated. No filling defects are identified to suggest pulmonary embolism. Mediastinum : Thoracic aorta is normal in caliber. No pericardial effusion. No lymphadenopathy. The esophagus is grossly unremarkable. Lungs: No focal consolidation, pneumothorax or pleural effusion. Upper abdomen: No acute findings Soft tissue/bones: Soft tissues surrounding the chest wall demonstrate no acute findings. Osseous structures demonstrate degenerative change. CT/CT angio chest PE protocol IMPRESSION: NO EVIDENCE OF ACUTE PULMONARY EMBOLISM OR PROCESS. Impression dictated by: Luis Turner Jr., D.O.06/03/2023 5:48 PM Dictation Location: [place] [address] Transcribed By: [facility] 06/03/231747 Dictated By: Luis Turner Jr, DO 06/03/231746 Signed By: 06/03/231747 Normal [facility] Calcium [Mass/volume] in Ser um or PlasmaOrdered By: Bhanu Alvarez on 06-03-2023 Calcium [Mass/Vol] 9.5 mg/dL 8.6-10.3 [facility] Comment on above: Order Comment: Hemol yzed-requested redraw @ 1442. MLG Performed By: #### C MP, PRL, CBC ####[place] [id number] [facility] Cannabinoids [Presence] in U rine by Screen methodOrdered By: Bhanu Alvarez on 06-03-2023 Cannabinoids Screen Ql (U) Negative Negative [facility] Comment on above: These are unconfirme d results and should not be used for legal purposes. Drug Cut-Off Concentration: AMPH 1000 ng/mL WILIAN 200 ng/mL LESLY 200 ng/mL COCM 300 ng/mL OP 300 ng/mL PCP 25 ng/mL THC 20 ng/mL Carbon dioxide, total [Moles /volume] in Serum or PlasmaOrdered By: Bhanu Alvarez on 06-03-2023 CO2 [Moles/Vol] 22.4 mmol/L 21.0-31.0 [facility] Comment on above: Order Comment: Hemol yzed-requested redraw @ 1442. MLG Performed By: #### C MP, PRL, CBC ####[place] [id number] [facility] Chloride [Moles/volume] in S juan carlos or PlasmaOrdered By: Bhanu Alvarez on 06-03-2023 Chloride [Moles/Vol] 108 mmol/L 98-107 [facility] Comment on above: Order Comment: Hemol yzed-requested redraw @ 1442. MLG Performed By: #### C MP, PRL, CBC ####[place] [id number] [facility] Color Auto (U)Ordered By: Sameer Alvarez on 06-03-2023 Color (U) Yellow Yellow [facility] Complete Blood Count Auto Di ffon 06-03-2023 Basophils (Bld) [#/Vol] 0.0 10*3/uL Normal 0.0-0.2 [facility] Comment on above: Result Comment: PERF ORMED BY: [facility] [address] [place] TONYJean PierreHernandez [place] [id number] PATHOLOGIST [employer] LEV HERNÁNDEZ M.D. Performed By: #### C MP, PRL, CBC ####[address] [address] [facility] Basophils/100 WBC (Bld) 0.6 % Normal . [facility] Comment on above: Performed By: #### C MP, PRL, CBC ####[address] [address] [facility] Eosinophils (Bld) [#/Vol] 0.1 10*3/uL Normal 0.0-0.45 [facility] Comment on above: Performed By: #### C MP, PRL, CBC ####[place] [id number] [facility] Eosinophils/100 WBC (Bld) 2.1 % Normal . [facility] Comment on above: Performed By: #### C MP, PRL, CBC ####[place] [id number] [facility] Erythrocyte distribution width (RBC) [Ratio] 12.5 % Normal 11.9-15.3 [facility] Comment on above: Performed By: #### C MP, PRL, CBC ####[address] [address] [facility] Hematocrit (Bld) [Volume fraction] 41.5 % Normal 34.0-46.4 [facility] Comment on above: Performed By: #### C MP, PRL, CBC ####[address] [address] [facility] Hemoglobin (Bld) [Mass/Vol] 14.1 g/dL Normal 11.8-15.4 [facility] Comment on above: Performed By: #### C MP, PRL, CBC ####[address] [address] [place] Lymphocytes (Bld) [#/Vol] 2.6 10*3/uL Normal 1.00-4.8 [facility] Comment on above: Performed By: #### C MP, PRL, CBC ####[place] [id number] [place] Lymphocytes/100 WBC (Bld) 38.0 % Normal . [facility] Comment on above: Performed By: #### C MP, PRL, CBC ####[address] MCH (RBC) [Entitic mass] 31.8 pg Normal 24.7-34.3 [facility] Comment on above: Performed By: #### C MP, PRL, CBC ####[address] MCV (RBC) [Entitic vol] 93.9 fL Normal 80-100 [facility] Comment on above: Performed By: #### C MP, PRL, CBC ####[address] Mean Corpuscular HGB Conc 33.9 g/dL Normal 32.0-35.0 [facility] Comment on above: Performed By: #### C MP, PRL, CBC ####[address] Monocytes (Bld) [#/Vol] 0.4 10*3/uL Normal 0.0-0.8 [facility] Comment on above: Performed By: #### C MP, PRL, CBC ####[address] Monocytes/100 WBC (Bld) 18.41 % Normal 0.00-20.00 [facility] Comment on above: Performed By: #### C MP, PRL, CBC ####[address] Monocytes/100 WBC (Bld) 6.5 % Normal . [facility] Comment on above: Performed By: #### C MP, PRL, CBC ####[address] Neutrophils (Bld) [#/Vol] 3.6 10*3/uL Normal 1.8-7.7 [facility] Comment on above: Performed By: #### C MP, PRL, CBC ####[address] Neutrophils/100 WBC (Bld) 52.8 % Normal . [facility] Comment on above: Performed By: #### C MP, PRL, CBC ####[address] NRBC% 0.0 /100{WBC} Normal 0-0.5 [facility] Comment on above: Performed By: #### C MP, PRL, CBC ####[address] Platelet mean volume (Bld) [Entitic vol] 9.3 fL Normal 6.3-10.7 [facility] Comment on above: Performed By: #### C MP, PRL, CBC ####[address] Platelets (Bld) [#/Vol] 196 10*3/uL Normal 150-450 [facility] Comment on above: Performed By: #### C MP, PRL, CBC ####[address] RBC (Bld) [#/Vol] 4.42 10*6/uL Normal 3.60-5.00 [facility] Comment on above: Performed By: #### C MP, PRL, CBC ####[address] WBC (Bld) [#/Vol] 6.8 10*3/uL Normal 3.8-11.6 [facility] Comment on above: Performed By: #### C MP, PRL, CBC ####[address] Comprehensive Metabolic Pane mitchel 06-03-2023 Albumin [Mass/Vol] 4.6 g/dL Normal 3.5-5.7 [facility] Comment on above: Order Comment: Hemol yzed-requested redraw @ 1442. MLG Performed By: #### C MP, PRL, CBC ####[address] Creatinine Clr Calc Pharmacy 110.22 Normal [facility] Comment on above: Order Comment: Hemol yzed-requested redraw @ 1442. MLG Performed By: #### C MP, PRL, CBC ####[place] [id number] [place] [address] [place] GFR/1.73 sq M.predicted MDRD (S/P/Bld) [Vol rate/Area] mL/min/{1.73_m2} Normal [facility] Comment on above: Order Comment: Hemol yzed-requested redraw @ 1442. MLG Performed By: #### C MP, PRL, CBC ####[address] [address] [facility] Creatinine [Mass/volume] in Serum or PlasmaOrdered By: Bhanu Avlarez on 06-03-2023 Creatinine [Mass/Vol] 0.86 mg/dL 0.60-1.20 [facility] Comment on above: Order Comment: Hemol yzed-requested redraw @ 1442. MLG Performed By: #### C MP, PRL, CBC ####[address] [address] [facility] D-Dimer High Sensitivityon 0 06-03-2023 D-Dimer High Sensitivity 282 ng/mL High 0-243 [facility] Comment on above: Result Comment: The reference range for D-dimer is <243 ng/mL D-dimer units. D-dimer results must be used in conjunction with a clinical pretest probability (PTP) assessment model for deep vein thrombosis (DVT) and pulmonary embolism (PE). Results <230 ng/mL d-dimer units can be used as a negative predictor in patients with low or moderate probability for DVT/PE. Results above the exclusion threshold of 230 ng/ml D-dimer units for DVT/PE may indicate the need for further diagnostic testing. D-Dimer can be increased in hospitalized patients due to co-morbid conditions. A hematocrit value greater than 55% may lead to inaccurate results in coagulation testing. Patients having hematocrit values >55% require a special collection tube for coagulation studies. Please contact the laboratory at [phone] for redraw instructions. PERFORMED BY: [facility] [address] [place] [id number] PATHOLOGIST [employer] LEV HERNÁNDEZ M.D. Performed By: #### D DIMER #### [facility] [address] [place] [address] Drug Screen,Urineon 06-03-19 24 Amphetamine Screen,Urine Negative Normal Negative [facility] Comment on above: Performed By: #### U HCG, URDS, UA #### [address] Barbiturate Screen,Urine Negative Normal Negative [facility] Comment on above: Performed By: #### U HCG, URDS, UA #### [facility] [address] [place] [address] Benzodiazepines Screen,Urine Positive High Negative [facility] Comment on above: Performed By: #### U HCG, URDS, UA #### [address] Cannabinoid Screen,Urine Negative Normal Negative [facility] Comment on above: Result Comment: Thes e are unconfirmed results and should not be used for legal purposes. Drug Cut-Off Concentration: AMPH 1000 ng/mL WILIAN 200 ng/mL LESLY 200 ng/mL COCM 300 ng/mL OP 300 ng/mL PCP 25 ng/mL THC 20 ng/mL PERFORMED BY: [place] [address] PATHOLOGIST [employer] LEV HERNÁNDEZ M.D. Performed By: #### U HCG, URDS, UA #### [facility] [address] [place] [address] Cocaine Screen,Urine Negative Normal Negative [facility] Comment on above: Performed By: #### U HCG, URDS, UA #### [facility] [address] [place] [address] [place] Opiate Screen,Urine Negative Normal Negative [facility] Comment on above: Performed By: #### U HCG, URDS, UA #### [facility] [address] [place] [address] Phencyclidine Screen,Urine Negative Normal Negative [facility] Comment on above: Performed By: #### U HCG, URDS, UA #### [place] [id number] [facility] ECG 12 lead ECGon 06-03-[address]23 [address] [facility] [place] [address] Electrocardiograph Report Signed Patient: Sully Enriquez MR#: [id number] : 1990 Acct:[id number] Age/Sex: 33 / F ADM Date: 06/03/23 Loc: ER Room: Type: [facility] ER Attending Dr: Ordering Provider: Bhanu Alvarez PA-C Date of Service: 06/03/23 ECG/ECG 12 lead ECG: Seizure Copies to: Test Reason : Blood Pressure : / mmHG Vent. Rate : 071 BPM Atrial Rate : 071 BPM P-R Int : 158 ms QRS Dur : 084 ms QT Int : 388 ms P-R-T Axes : 064 084 058 degrees QTc Int : 421 ms Normal sinus rhythm Normal ECG When compared with ECG of 03-JUN-2023 13:33, (Unconfirmed) No significant change was found Confirmed by JOSE CADE DO ([id number]) on 06/03/2023 3:47:30 PM Referred By: Electronically Signed By:JOSE CADE DO Transcribed By: MUS Signed By Jose Cade DO 1547 Normal [facility] ECG [address] [facility] [address] [place] [id number] Electrocardiograph Report Signed Patient: Sully Enriquez MR#: [id number] : 1990 Acct:[id number] Age/Sex: 33 / F ADM Date: 06/03/23 Loc: ER Room: Type: [facility] ER Attending Dr: Ordering Provider: Bhanu Alvarez PA-C Date of Service: 06/03/23 ECG/ECG 12 lead ECG: Seizure Copies to: Test Reason : Blood Pressure : / mmHG Vent. Rate : 083 BPM Atrial Rate : 083 BPM P-R Int : 158 ms QRS Dur : 080 ms QT Int : 356 ms P-R-T Axes : 065 084 040 degrees QTc Int : 418 ms Normal sinus rhythm Normal ECG When compared with ECG of 25-APR-2021 14:08, No significant change was found Confirmed by JOSE CADE DO ([id number]) on 06/03/2023 3:47:34 PM Referred By: Electronically Signed By:JOSE CADE DO Transcribed By: MUS Signed By Jose Cade DO 1547 Normal [facility] Eosinophils Auto (Bld) [#/Vo l]Ordered By: Bhanu Alvarez on 06-03-2023 Eosinophils (Bld) [#/Vol] 0.1 10*3/uL 0.0-0.45 [facility] Eosinophils/100 WBC Auto (Bl d)Ordered By: Bhanu Alvarez on 06-03-2023 Eosinophils/100 WBC (Bld) 2.1 % . [facility] Erythrocyte distribution wid th Auto (RBC) [Ratio]Ordered By: Bhanu Alvarez on 06-03-2023 Erythrocyte distribution width (RBC) [Ratio] 12.5 % 11.9-15.3 [facility] Fibrin D-dimer [Presence] in Platelet poor plasma by Latex agglutinationOrdered By: Bhanu Alvarez on 06-03-2023 Fibrin D-dimer LA Ql (PPP) 282 ng/mL 0-243 [facility] Comment on above: The reference range for D-dimer is <243 ng/mL D-dimer units.D-dimer results must be used in conjunction with a clinicalpretest probability (PTP) assessment model for deep veinthrombosis (DVT) and pulmonary embolism (PE). Results <230ng/mL d-dimer units can be used as a negative predictor inpatients with low or moderate probability for DVT/PE.Results above the exclusion threshold of 230 ng/ml D-dimerunits for DVT/PE may indicate the need for furtherdiagnostic testing.D-Dimer can be increased in hospitalized patients due toco-morbid conditions.A hematocrit value greater than 55% may lead to inaccurate results in coagulation testing. Patients having hematocrit values >55% require a special collection tube for coagulation studies. Please contact the laboratory at [phone] for redraw instructions. Glucose [Mass/volume] in Ser um or PlasmaOrdered By: Bhanu Alvarez on 06-03-2023 Glucose [Mass/Vol] 102 mg/dL 70-100 [facility] Comment on above: ADA recommended refe rence rangeRandom Glucose Reference Range is dependent on time and content of last meal. Glucose of more than 200 mg/dL in a nonstressed, ambulatory subject supports the diagnosis of Diabetes Mellitus. Order Comment: Adithya xiong redraw @ 1442. MLG Result Comment: [place] om Glucose Reference Range is dependent on time and content of last meal. Glucose of more than 200 mg/dL in a nonstressed, ambulatory subject supports the diagnosis of Diabetes Mellitus. ADA recommended reference range Performed By: #### C MP, PRL, CBC ####[facility] [address] HCG ( test) IA.rapi d Ql (U)Ordered By: Bhanu Alvarez on 06-03-2023 HCG ( test) Ql (U) Negative [facility] HCG,Urineon 06-03-2023 Beta HCG ( test) Ql (U) Negative Normal [facility] Comment on above: Order Comment: Name Collection Type:: Clean-Voided Midstream Result Comment: PERF ORMED BY: [facility] [address] [place] [address] PATHOLOGIST [employer] LEV HERNÁNDEZ M.D. Performed By: #### U HCG, URDS, UA #### [facility] [address] Hematocrit Auto (Bld) [Volum e fraction]Ordered By: Bhanu Alvarez on 06-03-2023 Hematocrit (Bld) [Volume fraction] 41.5 % 34.0-46.4 [facility] Hemoglobin [Mass/volume] in BloodOrdered By: Bhanu Alvarez on 06-03-2023 Hemoglobin (Bld) [Mass/Vol] 14.1 g/dL 11.8-15.4 [facility] Ketones Auto test strip (U) [Mass/Vol]Ordered By: Bhanu Alvarez on 06-03-2023 Ketones (U) [Mass/Vol] Negative Negative [facility] Leukocytes [#/volume] correc armaan for nucleated erythrocytes in Blood by Automated counOrdered By: Bhanu Alvarez on 06-03-2023 WBC corrected for nucl RBC Auto (Bld) [#/Vol] 6.8 10*3/uL 3.8-11.6 [facility] Lymphocytes Auto (Bld) [#/Vo l]Ordered By: Bhanu Alvarez on 06-03-2023 Lymphocytes (Bld) [#/Vol] 2.6 10*3/uL 1.00-4.8 [facility] Lymphocytes/100 WBC Auto (Bl d)Ordered By: Bhanu Alvarez on 06-03-2023 Lymphocytes/100 WBC (Bld) 38.0 % . [facility] MCH Auto (RBC) [Entitic mass ]Ordered By: Bhanu Alvarez on 06-03-2023 MCH (RBC) [Entitic mass] 31.8 pg 24.7-34.3 [facility] MCHC Auto (RBC) [Mass/Vol]Or dered By: Bhanu Alvarez on 06-03-2023 MCHC (RBC) [Mass/Vol] 33.9 g/dL 32.0-35.0 [facility] MCV Auto (RBC) [Entitic vol] Ordered By: Bhanu Alvarez on 06-03-2023 MCV (RBC) [Entitic vol] 93.9 fL 80-100 [facility] Monocyte distribution width [Entitic volume] in Blood by AutomatedOrdered By: Bhanu Alvarez on 06-03-2023 Monocyte distribution width Auto (Bld) [Entitic vol] 18.41 % 0.00-20.00 [facility] Monocytes Auto (Bld) [#/Vol] Ordered By: Bhanu Alvarez on 06-03-2023 Monocytes (Bld) [#/Vol] 0.4 10*3/uL 0.0-0.8 [facility] Monocytes/100 WBC Auto (Bld) Ordered By: Bhanu Alvarez on 06-03-2023 Monocytes/100 WBC (Bld) 6.5 % . [facility] Neutrophils Auto (Bld) [#/Vo l]Ordered By: Bhanu Alvarez on 06-03-2023 Neutrophils (Bld) [#/Vol] 3.6 10*3/uL 1.8-7.7 [facility] Neutrophils/100 WBC Auto (Bl d)Ordered By: Bhanu Alvarez on 06-03-2023 Neutrophils/100 WBC (Bld) 52.8 % . [facility] Nitrite Test strip Ql (U)Ord ered By: Bhanu Alvarez on 06-03-2023 Nitrite Ql (U) Negative Negative [facility] No Panel InformationOrdered By: Bhanu Alvarez on 06-03-2023 Estimated GFR (CKD-EPI) > 60.0 mL/Min [facility] Creatinine Clearance (Chem 110.22 [facility] Nucleated erythrocytes [Pres ence] in Blood by Automated countOrdered By: Bhanu Alvarez on 06-03-2023 Nucleated RBC Auto Ql (Bld) 0.0 /100{WBC} 0-0.5 [facility] Opiates [Presence] in Urine by Screen methodOrdered By: Bhanu Alvarez on 06-03-2023 Opiates Screen Ql (U) Negative Negative [facility] Phencyclidine Screen Ql (U)O rdered By: Bhanu Alvarez on 06-03-2023 Phencyclidine Ql (U) Negative Negative [facility] Platelet mean volume Auto (B ld) [Entitic vol]Ordered By: Bhanu Alvarez on 06-03-2023 Platelet mean volume (Bld) [Entitic vol] 9.3 fL 6.3-10.7 [facility] Platelets Auto (Bld) [#/Vol] Ordered By: Bhanu Alvarez on 06-03-2023 Platelets (Bld) [#/Vol] 196 10*3/uL 150-450 [facility] Potassium [Moles/volume] in Serum or PlasmaOrdered By: Bhanu Alvarez on 06-03-2023 Potassium [Moles/Vol] 3.7 mmol/L 3.5-5.1 [facility] Comment on above: Order Comment: Hemol yzed-requested redraw @ 1442. MLG Performed By: #### C MP, PRL, CBC ####[facility] [address] [place] [address] [facility] Prolactinon 06-03-2023 Prolactin 8.46 ng/mL Normal 3.34-26.72 [facility] Comment on above: Order Comment: Hemol yzed-requested redraw @ 1442. MLG Result Comment: PERF ORMED BY: [facility] [address] [place] [id number] PATHOLOGIST [employer] LEV HERNÁNDEZ M.D. Performed By: #### C MP, PRL, CBC ####[facility] [place] [id number] [facility] Prolactin [Mass/volume] in S juan carlos or PlasmaOrdered By: Bhanu Alvarez on 06-03-2023 Prolactin [Mass/Vol] 8.46 ng/mL 3.34-26.72 [facility] Protein Auto test strip (U) [Mass/Vol]Ordered By: Bhanu Alvarez on 06-03-2023 Protein (U) [Mass/Vol] Negative Negative [facility] Protein [Mass/volume] in Ser um or PlasmaOrdered By: Bhanu Alvarez on 06-03-2023 Protein [Mass/Vol] 7.5 g/dL 6.4-8.9 [facility] Comment on above: Order Comment: Hemol yzed-requested redraw @ 1442. MLG Performed By: #### C MP, PRL, CBC ####[place] [address] RBC Auto (Bld) [#/Vol]Ordere d By: Bhanu Alvarez on 06-03-2023 RBC (Bld) [#/Vol] 4.42 10*6/uL 3.60-5.00 [facility] Serum globulin measurement b y calculation (mass/volume)Ordered By: Bhanu Alvarez on 06-03-2023 Globulin (S) [Mass/Vol] 2.9 g/dL [facility] Comment on above: Order Comment: Hemol yzed-requested redraw @ 1442. MLG Performed By: #### C MP, PRL, CBC ####[place] [address] Serum or plasma albumin/glob ulin mass ratioOrdered By: Bhanu Alvarez on 06-03-2023 Albumin/Globulin [Mass ratio] 1.6 {ratio} [facility] Comment on above: Order Comment: Hemol yzed-requested redraw @ 1442. MLG Performed By: #### C MP, PRL, CBC ####[place] [address] Serum or plasma anion gap de terminationOrdered By: Bhanu Alvarez on 06-03-2023 Anion gap [Moles/Vol] 11.3 mmol/L 6.0-15.0 [facility] Comment on above: Order Comment: Hemol yzed-requested redraw @ 1442. MLG Performed By: #### C MP, PRL, CBC ####[place] [address] Sodium [Moles/volume] in Ser um or PlasmaOrdered By: Bhanu Alvarez on 06-03-2023 Sodium [Moles/Vol] 138 mmol/L 136-145 [facility] Comment on above: Order Comment: Hemol yzed-requested redraw @ 1442. MLG Performed By: #### C MP, PRL, CBC ####[place] [address] Specific gravity Auto test s trip (U) [Rel density]Ordered By: Bhanu Alvarez on 06-03-2023 Specific gravity (U) [Rel density] 1.010 1.001-1.030 [facility] Troponin I High Sensitivityo n 06-03-2023 Troponin I High Sensitivity < 2.3 Normal 0.0-15.0 [facility] Comment on above: Result Comment: PERF ORMED BY: [facility] [address] [facility] [place] [address] PATHOLOGIST [employer] LEV HERNÁNDEZ M.D. Performed By: #### H S TROP #### [facility] [address] Troponin I.cardiac [Mass/vol ume] in Serum or Plasma by Detection limit <= 0.01 ng/Ordered By: Bhanu Alvarez on 06-03-2023 Troponin I.cardiac DL <= 0.01 ng/mL [Mass/Vol] < 2.3 pg/mL 0.0-15.0 [facility] Urea nitrogen [Mass/volume] in Serum or PlasmaOrdered By: Bhanu Alvarez on 06-03-2023 Urea nitrogen [Mass/Vol] 10 mg/dL 7 [facility] Comment on above: Order Comment: Adithya xiong redraw @ 1442. MLG Performed By: #### C MP, PRL, CBC ####[facility] [address] Urinalysison 06-03-2023 Appearance (U) Clear Normal Clear [facility] Comment on above: Order Comment: Name Collection Type:: Clean-Voided Midstream Performed By: #### U HCG, URDS, UA #### [facility] [address] [place] [address] [place] Bilirubin,Urine Negative Normal Negative [facility] Comment on above: Order Comment: Name Collection Type:: Clean-Voided Midstream Performed By: #### U HCG, URDS, UA #### [facility] [address] [place] [address] [place] Color (U) Yellow Normal Yellow [facility] Comment on above: Order Comment: Name Collection Type:: Clean-Voided Midstream Performed By: #### U HCG, URDS, UA #### [facility] [address] [place] [address] [place] Glucose Ql (U) Normal Normal Normal [facility] Comment on above: Order Comment: Name Collection Type:: Clean-Voided Midstream Performed By: #### U HCG, URDS, UA #### [facility] [address] [place] [address] [place] Ketones Ql (U) Negative Normal Negative [facility] Comment on above: Order Comment: Name Collection Type:: Clean-Voided Midstream Performed By: #### U HCG, URDS, UA #### [facility] [address] [place] [address] [place] Leukocyte esterase Test strip Ql (U) Negative Normal Negative [facility] Comment on above: Order Comment: Name Collection Type:: Clean-Voided Midstream Performed By: #### U HCG, URDS, UA #### [facility] [address] [place] [address] [place] Nitrite,Urine Negative Normal Negative [facility] Comment on above: Order Comment: Name Collection Type:: Clean-Voided Midstream Performed By: #### U HCG, URDS, UA #### [place] [address] [place] Occult Blood,Urine Negative Normal Negative [facility] Comment on above: Order Comment: Name Collection Type:: Clean-Voided Midstream Performed By: #### U HCG, URDS, UA #### [address] pH (U) 6.5 [pH] Normal 5.0-9.0 [facility] Comment on above: Order Comment: Name Collection Type:: Clean-Voided Midstream Performed By: #### U HCG, URDS, UA #### [place] [address] [place] Protein,Urine Negative Normal Negative [facility] Comment on above: Order Comment: Name Collection Type:: Clean-Voided Midstream Performed By: #### U HCG, URDS, UA #### [address] Specificy Powers,Urine 1.010 Normal 1.001-1.030 [facility] Comment on above: Order Comment: Name Collection Type:: Clean-Voided Midstream Performed By: #### U HCG, URDS, UA #### [facility] [address] [place] [address] [place] Urobilinogen,Urine Normal Normal Normal [facility] Comment on above: Order Comment: Name Collection Type:: Clean-Voided Midstream Performed By: #### U HCG, URDS, UA #### [facility] [address] [place] [address] [place] Urine clarity by refractomet ry automatedOrdered By: Bhanu Alvarez on 06-03-2023 Clarity Refractometry automated (U) Clear Clear [facility] Urine glucose measurement by automated test strip (mass/volume)Ordered By: Bhanu Alvarez on 06-03-2023 Glucose Auto test strip (U) [Mass/Vol] Normal mg/dL Normal [facility] Urine hemoglobin detection b y automated test stripOrdered By: Bhanu Alvarez on 06-03-2023 Hemoglobin Auto test strip Ql (U) Negative Negative [facility] Urine leukocyte esterase det ection by automated test stripOrdered By: Bhanu Alvarez on 06-03-2023 Leukocyte esterase Auto test strip Ql (U) Negative Negative [facility] Urobilinogen Auto test strip (U) [Mass/Vol]Ordered By: Bhanu Alvarez on 06-03-2023 Urobilinogen (U) [Mass/Vol] Normal mg/dL Normal [facility] WBC Auto (Bld) [#/Vol]Ordere d By: Bhanu Alvarez on 06-03-2023 WBC (Bld) [#/Vol] 6.8 10*3/uL 3.8-11.6 [facility] pH Auto test strip (U)Ordere d By: Bhanu Alvarez on 06-03-2023 pH (U) 6.5 [pH] 5.0-9.0 [facility] Physician Referralon 023 Physician Referral [id number] [facility] Physician Referralon 023 Physician Referral [id number]:12 7 [facility] RAD - MISCon 12-27-2022 RAD - MISC [id number]:12 7 [facility] ED Note-Physicianon 11-27-19 ED Note-Physician [id number]#[id number]:12 7 [facility] ED Note-Physician Basic Information Time Seen: Gaby Turenr PA-C 11/22/2022 20:47 Chief Complaint L flank pain worsening x 2 weeks. pt. seen at [facility] x 2 with negative workup. hx kidney stones. also c/o N/V. denies fevers. History of Present Illness This patient presents emergency department chief complaint of left flank pain. The patient states this has been going on for 2 weeks. She has been seen at [facility] twice but they could not determine an [...] Patient has not followed up with a real estate developer in a long time. I discussed with [...] the patient (more content not included)... Normal [facility] Comment on above: Result Comment: Elec tronically [...] Locations R1: This test was performed at: [facility], [address] [place] [address], [address] , , Normal [facility] Comment on above: Performed By: #### 1 [id number], [id number], [id number] #### [facility] [address] [place] [address] Discharge Instructionson Discharge Instructions [id number]:1 27 Normal [facility] ED Clinical Summaryon 2022 ED Clinical Summary (Inserted Image. Jeniffer ble to display) [address] [address] ED Clinical Summary Person Information Name: SULLY ENRIQUEZ [facility] Age: 32 Years : 1990 Sex: Female Language: Slovenian PCP: MARIO GLASGOW DO Marital Status: Visit [...] 11/23/2022 01:20:40 11/23/2022 01:20:40 11/23/2022 01:20:40 ADDRESS: [address] [place] [phone] PHYS DOC NOTES: MEDICAL INFORMATION: Prescriptions Given: New Medications [id number], [address] [place], [place] [id number], [phone] tramadol (traMADOL 50 mg Tab) 1 Tablets By Mouth every 6 hours as needed for pain. Refills: 0. Medications to Continue with No Changes Other Medications acetaminophen-hydrocodone ([place] 5/325 Tab) By Mouth every 6 hours. [...] Endometriosis; Laparoscopic Lysis of Abdominal Adhesions; Adhesions, Aiiy-ep-Xqbx; Abdominal Pain, Adult, Zglt-il-Mxbp Follow up: With: Address: When: MARIO GLASGOW [address] [place] [address] Business (1) In 3 days 11/26/2022 DIAGNOSIS: 1:Chronic left flank pain; 2:Abdominal pain, acute, left upper quadrant; Other chronic pain Normal [facility] ED Patient Education Noteon 11-23-2022 ED [...] including vitamins, herbs, eye drops, creams, and krda-psp-gdzisda medicines. ? Any problems you or family [...] tells you to take them. ? Taking kghq-yim-klfsdys medicines, vitamins, herbs, and supplements. General instructions [...] returns. Aft (more content not included)... Normal [facility] ED Patient Summaryon 023 ED Patient Summary (Inserted Image. Jeniffer ble to display) [place] [address] Patient Discharge Instructions Person Information Name: SULLY ENRIQUEZ Age: 32 Years Arrival Date: 11/22/2022 19:01:04 Discharge Diagnosis: 1:Chronic left flank pain; 2:Abdominal pain, acute, left upper quadrant; Other chronic pain Primary Care Physician: MARIO GLASGOW DO Provider Information Primary Provider: Sonam Montoya DO [employer] Supervisor:None The exam and treatment you received in the Emergency Department were for an urgent problem and are not intended as complete care. It is important that you follow up with a doctor, nurse practitioner, or physician?s energy assistant for ongoing care. If your symptoms become worse or you do not improve as expected and you are unable to reach your usual health care provider, you should return to the Emergency Department. We are available 24 hours a day. SULLY ENRIQUEZ has been given the following list of patient education materials, prescriptions and follow-up instructions: Follow-up Instructions: With: Address: When: MARIO MADERA, [address] [place] [address] Business (1) In 3 days 11/26/2022 In the event that this physician does not participate in your insurance network, please consult with your insurance company to find a nearby participating provider. Patient Education Materials: Endometriosis; Laparoscopic Lysis of Abdominal Adhesions; Adhesions, Nsqx-wf-Wvnh; Abdominal Pain, Adult, Bthw-xi-Ksjp A MESSAGE TO ALL PATIENTS REGARDING OPIOIDS PRESCRIPTION OPIOIDS: WHAT YOU NEED TO KNOW Prescription opioids can be used to help relieve wvnlkltt-hg-idujrb pain and are often prescribed following a [...] struggling wit (more content not included)... Normal [facility] XR Abdomen 1 Viewon 11-24-19 XR [...] Hamilton MD, V. Transcribed by: CHERYL Technologist: MBS Technical Comments Radiation Dose: Ka,r in mGy = na DAP = na Normal [facility] Auto Diffon 11-22-2022 Basophils/100 WBC (Bld) 0.6 % Normal 0.0-2.0 F [facility] Comment on above: Order Comment: Order Added by Discern Expert. Performed By: #### 2 644995, 3734270, 8077917, 36726080, 6911207, 9532760 #### [facility] [address] [place] [address]9795 Basophils/Leukocytes Auto (Bld) [Pure # fraction] 0.0 E9/L Normal 0.0-0.2 [facility] Comment on above: Order Comment: Order Added by Discern Expert. Performed By: #### 2 935455, 8963259, 3356919, 67075608, 7171643, 7665733 #### [facility] [address] [place] [address] 36454 Eosinophils/100 WBC (Bld) 1.5 % Normal 0.0-8.0 [facility] Comment on above: Order Comment: Order Added by Carson Expert. Performed By: #### 2 842605, 3077929, 9273301, 79635264, 9206774, 8696950 #### [facility] [address] [place] [address] 67061 Eosinophils/Leukocytes Auto (Bld) [Pure # fraction] 0.1 E9/L Normal 0.0-0.5 [facility] Comment on above: Order Comment: Order Added by Discern Expert. Performed By: #### 2 024692, 0393362, 5211637, 66214148, 9929523, 7628632 #### [facility] [address] [place] [address] 43794 Lymphocytes/100 WBC (Bld) 33.5 % Normal 14.0-50.0 [facility] Comment on above: Order Comment: Order Added by Discern Expert. Performed By: #### 2 431892, 5007940, 5939856, 91025791, 4183001, 4279534 #### [facility] [address] [place] [address] Lymphocytes/Leukocytes Auto (Bld) [Pure # fraction] 2.6 E9/L Normal 1.0-4.0 [facility] Comment on above: Order Comment: Order Added by Discern Expert. Performed By: #### 2 288121, 9902061, 1837276, 84851445, 1664329, 1115791 #### [facility] [address] [place] [address] 89251 Monocytes/100 WBC (Bld) 8.6 % Normal 4.0-14.0 [facility] Comment on above: Order Comment: Order Added by Discern Expert. Performed By: #### 2 441502, 0383558, 5913377, 98124440, 6269103, 9887757 #### [facility] [address] [place] [address] 55204 Monocytes/Leukocytes Auto (Bld) [Pure # fraction] 0.7 E9/L Normal 0.2-1.0 [facility] Comment on above: Order Comment: Order Added by Discern Expert. Performed By: #### 2 094781, 8517298, 9486488, 67839637, 6429874, 2128854 #### [facility] [address] [place] [address] 39610 Neutrophils/100 WBC (Bld) 55.8 % Normal 36.0-75.0 [facility] Comment on above: Order Comment: Order Added by Discern Expert. Performed By: #### 2 485702, 1647040, 4965631, 25243409, 6658289, 6278793 #### [facility] [address] [place] [address] 23263 Neutrophils/Leukocytes Auto (Bld) [Pure # fraction] 4.3 E9/L Normal 2.0-7.5 [facility] Comment on above: Order Comment: Order Added by Discern Expert. Performed By: #### 2 584878, 3182893, 5506090, 73807781, 3265596, 1891431 #### [facility] [address] [place] [address] 14487 BMPon 11-22-2022 Creatinine [Mass/Vol] 1.0 mg/dL Normal 0.5-1.3 [facility] Comment on above: Performed By: #### 2 038796, 6678882, 2155482, 00288637, 2004577, 4043861 #### [facility] [address] [place] [address] Urea nitrogen [Mass/Vol] 16 mg/dL Normal 5-21 [facility] Comment on above: Performed By: #### 2 091136, 6743918, 0778563, 26675517, 2362898, 7566901 #### [facility] [address] [place] [address] Urea nitrogen/Creatinine [Mass ratio] 16 No Units Normal 10-20 [facility] Comment on above: Performed By: #### 2 023237, 2077618, 2492137, 62910004, 7419212, 4683116 #### [facility] [address] [place] [address] Anion gap [Moles/Vol] 15 mmol/L Normal 6-16 [facility] Comment on above: Performed By: #### 2 327069, 1807106, 7398839, 83313898, 0121725, 6835467 #### [facility] [address] [place] [address] Calcium [Mass/Vol] 9.6 mg/dL Normal 8.9-11.1 [facility] Comment on above: Performed By: #### 2 480149, 6063343, 6405534, 95074963, 1398731, 3810438 #### [facility] [address] [place] [address] Chloride [Moles/Vol] 107 mmol/L Normal 101-111 [facility] Comment on above: Performed By: #### 2 204171, 9045826, 2288486, 05889032, 9632414, 0528342 #### [facility] [address] [place] [address] CO2 [Moles/Vol] 19 mmol/L Low 21-31 [facility] Comment on above: Performed By: #### 2 414613, 1632316, 7682811, 52442401, 1645553, 5107835 #### [facility] [address] [place] [address] Glucose [Mass/Vol] 97 mg/dL Normal 55-199 [facility] Comment on above: Result Comment: If t his glucose result represents a fasting glucose, interpretation should refer to the following reference range: 55-99 mg/dL Performed By: #### 2 436474, 9801815, 8873794, 87447785, 9436069, 6581329 #### [facility] [address] [place] [address] Potassium [Moles/Vol] 3.9 mmol/L Normal 3.5-5.3 [facility] Comment on above: Performed By: #### 2 687636, 8730971, 1999837, 92999719, 8112135, 4337628 #### [facility] [address] [place] [address] Sodium [Moles/Vol] 137 mmol/L Normal 135-145 [facility] Comment on above: Performed By: #### 2 524911, 5516382, 2789586, 05699044, 1456948, 1324254 #### [facility] [address] [place] [address] CBC w/ Auto Diffon 3 Erythrocyte distribution width (RBC) [Ratio] 13.0 % Normal 10.9-14.2 [facility] Comment on above: Performed By: #### 2 402700, 1406441, 4769712, 98125351, 0424716, 1520334 #### [facility] [address] [place] [address] Hematocrit (Bld) [Volume fraction] 42.7 % Normal 34.0-46.0 [facility] Comment on above: Performed By: #### 2 471102, 6487210, 0136415, 15717131, 9194181, 2211939 #### [facility] [address] [place] [address] Hemoglobin (Bld) [Mass/Vol] 14.6 g/dL Normal 12.0-16.0 [facility] Comment on above: Performed By: #### 2 048415, 6097190, 2166240, 60554468, 2208653, 4374166 #### [facility] [address] [place] [address] 23870 MCH (RBC) [Entitic mass] 31.7 pg Normal 27.0-34.0 [facility] Comment on above: Performed By: #### 2 746645, 3930503, 1224099, 41127392, 9600095, 7579044 #### [facility] [address] [place] [address] 63885 MCHC (RBC) [Mass/Vol] 34.1 g/dL Normal 31.4-36.0 [facility] Comment on above: Performed By: #### 2 597264, 1535116, 7015845, 82073444, 9803036, 6599444 #### [facility] [address] [place] [address] 20549 MCV (RBC) [Entitic vol] 93.1 fL Normal 80.0-100.0 [facility] Comment on above: Performed By: #### 2 867415, 4959140, 5071552, 76056703, 5401675, 5364861 #### [facility] [address] [place] [address] 03081 Platelet mean volume (Bld) [Entitic vol] 8.8 fL Normal 6.4-10.8 [facility] Comment on above: Performed By: #### 2 166729, 6055040, 2817805, 10972555, 8628312, 6214126 #### [facility] [address] [place] [address] Platelets (Bld) [#/Vol] 199.0 E9/L Normal 150.0-500.0 [facility] Comment on above: Performed By: #### 2 835212, 5594794, 7222562, 22430927, 3724772, 8847940 #### [facility] [address] [place] [address] RBC (Bld) [#/Vol] 4.6 E12/L Normal 4.3-5.9 [facility] Comment on above: Performed By: #### 2 862291, 9291175, 9416669, 21130644, 9082905, 7061816 #### [facility] [address] [place] [address] WBC corrected for nucl RBC Auto (Bld) [#/Vol] 7.7 E9/L Normal 4.0-11.0 [facility] Comment on above: Performed By: #### 2 029639, 6453278, 9419623, 90206498, 1976875, 6868302 #### [facility] [address] [place] [address] CHEMISTRYOrdered By: SYSTEM SYSTEM on 11-22-2022 Albumin [...] 1.0 mg/dL Normal 0.5 - 1.3 mg/dL FT Remisol GFR/1.73 sq M.predicted among non-blacks MDRD (S/P/Bld) [Vol rate/Area] 76 mL/min/1.73 m2 Normal >=59mL/min/ 1.73 m2 [facility] Chem S Globulin (S) [Mass/Vol] 3.4 g/dL Normal 1.4 - 4.0 gm/dL FT Remisol Glucose [Mass/Vol] 97 mg/dL Normal 55 - 199 mg/dL FT [facility]isol Lipase [Catalytic activity/Vol] 28 U/L Normal 13 - 58 unit/L FT [facility] Potassium [Moles/Vol] 3.9 mmol/L Normal 3.5 [...] Remisol Consent for Treatmenton Consent for Treatment [id number] Normal [facility] HEMATOLOGYOrdered By: SYSTEM SYSTEM on 11-22-2022 [...] 4.6 E12/L Normal 4.3 - 5.9 E12/L [facility] HemeAutoSS WBC corrected for nucl RBC Auto (Bld) [#/Vol] 7.7 E9/L Normal 4.0 - 11.0 E9/L [facility] HemeAutoSS Hep Func Panelon 11-22-2022 Bilirubin.indirect [Mass or moles/Vol] UTC Abnormal 0.1-0.9 [facility] Comment on above: Result Comment: Resu lt verified by Discern Rule. Performed result UT (Unable to Calculate) was sent as an Alpha code due the inability to calculate a valid numeric value. Performed By: #### 2 767800, 4579020, 6496131, 20196933, 2352769, 3836737 #### [facility] [address] [place] [address] Albumin [Mass/Vol] 4.5 g/dL Normal 3.3-5.0 [facility] Comment on above: Performed By: #### 2 015380, 5076830, 6244246, 66135564, 0814706, 2522012 #### [facility] [address] [place] [address] Albumin/Globulin (S) [Mass conc ratio] 1.3 Normal 1.1-2.2 [facility] Comment on above: Performed By: #### 2 267740, 5702550, 4528291, 19373539, 4100108, 9093830 #### [facility] [address] [place] [address] ALP [Catalytic activity/Vol] 42 Int._Unit/L Normal 21-98 [facility] Comment on above: Performed By: #### 2 684882, 6690369, 1017184, 93116846, 0730890, 3107446 #### [facility] [address] [place] [address] ALT No additional P-5'-P [Catalytic activity/Vol] 36 Int._Unit/L Normal 6-46 [facility] Comment on above: Performed By: #### 2 062719, 3063682, 7971842, 52872962, 9586690, 7014211 #### [facility] [address] [place] [address] AST [Catalytic activity/Vol] 26 Int._Unit/L Normal 5-43 [facility] Comment on above: Performed By: #### 2 243535, 6699085, 4909138, 45733027, 2782302, 0531132 #### [facility] [address] [place] [address] Bilirubin [Mass/Vol] 0.6 mg/dL Normal 0.0-1.1 [facility] Comment on above: Performed By: #### 2 494070, 7410681, 9716053, 17246383, 0488830, 8612495 #### [facility] [address] [place] [address] Globulin (S) [Mass/Vol] 3.4 g/dL Normal 1.4-4.0 F [facility] Comment on above: Performed By: #### 2 534215, 0527715, 4818293, 29397061, 8800269, 9572893 #### [facility] [address] [place] [address] Protein [Mass/Vol] 7.9 g/dL High 6.0-7.8 [facility] Comment on above: Performed By: #### 2 813692, 3861130, 0427213, 43991797, 4241355, 1378324 #### [facility] [address] [place] [address] Bilirubin.direct [Mass/Vol] mg/dL Normal 0.1-0.4 [facility] Comment on above: Performed By: #### 2 067737, 7226021, 9620903, 04141237, 6108183, 8987189 #### [facility] [address] [place] [address] Laboratory - Microbiology an d Antimicrobial susceptibilityOrdered By: Sherice Espinosa on 11-22-2022 Bacteria identified Cx Nom (U) 500 cfu/ml Mixed skin contaminants [facility] Lipase Levelon 11-22-2022 Lipase [Catalytic activity/Vol] 28 U/L Normal 13-58 [facility] Comment on above: Performed By: #### 2 749442, 0576952, 0019591, 33292102, 4799145, 8644910 #### [facility] [address] [place] [address] SEROLOGYOrdered By: Mario Dinh ster on 11-22-2022 HCG.beta subunit (U) [Moles/Vol] Negative Normal [facility] Man Sero U BetaHcg Qualon 11-22-2022 HCG.beta subunit (U) [Moles/Vol] Negative Normal [facility] Comment on above: Performed By: #### 1 6960150, 6030980, 19129249 #### [facility] [address] [place] [address] 08747 UA With Cult Reflexon 2022 Bacteria LM Ql (Urine sed) 2+ /HPF Abnormal Trace [facility] Comment on above: Performed By: #### 1 9186803, 0440304, 23515112 #### [facility] [address] [place] [address] Bilirubin Ql (U) Negative Normal Negative [facility] Comment on above: Performed By: #### 1 3190593, 8207350, 93254187 #### [facility] [address] [place] [address] Clarity (U) CLEAR Normal Clear [facility] Comment on above: Performed By: #### 1 8563020, 2525873, 70327161 #### [facility] [address] [place] [address] Color (U) YELLOW Normal Yellow [facility] Comment on above: Performed By: #### 1 5764084, 8117228, 88966493 #### [facility] [address] [place] [address] Epithelial cells.squamous LM.HPF (Urine sed) [#/Area] 5-8 Normal 0-2 [facility] Comment on above: Performed By: #### 1 9947197, 1574018, 01275299 #### [facility] [address] [place] [address] Glucose Test strip (U) [Mass/Vol] Negative Normal Negative [facility] Comment on above: Performed By: #### 1 2652774, 6405430, 60712223 #### [facility] [address] [place] [address] Hemoglobin Ql (U) Negative Normal Negative [facility] Comment on above: Performed By: #### 1 9895818, 5103180, 26792631 #### [facility] [address] [place] [address] Ketones (U) [Mass/Vol] Negative Normal Negative [facility] Comment on above: Performed By: #### 1 5804709, 8967333, 81931958 #### [facility] [address] [place] [address] Athelstan.plasma/Athelstan. RBC (Bld) [Mass ratio] 0-3 Normal 0-3 [facility] Comment on above: Performed By: #### 1 3945702, 9705956, 41278560 #### [facility] [address] [place] [address] Mucus Ql (Urine sed) TRACE Normal Fish [facility] Comment on above: Performed By: #### 1 2895748, 9186362, 30140831 #### [facility] [address] [place] [address] Nitrite Ql (U) Negative Normal Negative [facility] Comment on above: Performed By: #### 1 0801465, 5673484, 97839209 #### [facility] [address] [place] [address] pH (U) 6.0 [pH] Invalid Interpretation Code 5.0-9.0 [facility] Comment on above: Performed By: #### 1 8533962, 0610361, 23234165 #### [facility] [address] [place] [address] Protein (U) [Mass/Vol] Negative Normal Negative [facility] Comment on above: Performed By: #### 1 4465620, 1484244, 84250272 #### [facility] [address] [place] [address] Specific gravity (U) [Rel density] 1.025 Invalid Interpretation Code 1.005-1.030 [facility] Comment on above: Performed By: #### 1 5058516, 9967613, 46798269 #### [facility] [address] [place], [place] [address] Type of Urine collection method Clean Catch Normal [facility] Comment on above: Performed By: #### 1 4213709, 4243150, 55198272 #### [facility] [address] [place] [address] Urobilinogen Qn (U) 0.2 {Elba'U}/dL Normal 0.0-1.0 [facility] Comment on above: Performed By: #### 1 2448199, 6579049, 74798213 #### [facility] [address] [place] [address] WBC Auto Ql (U) Negative Normal Negative [facility] Comment on above: Performed By: #### 1 3422901, 0525774, 40999654 #### [facility] [address] [place], [place] [address] WBC LM.HPF (Urine sed) [#/Area] 0-5 Normal 0-5 [facility] Comment on above: Performed By: #### 1 7894218, 1638956, 49245420 #### [facility] [address] [place] [address] URINALYSISOrdered By: Mario howell on 11-22-2022 Bacteria [...] (Urine sed) [#/Area] 5-8 /HPF Normal 0-2/HPF FT UA Auto SS Glucose Test strip (U) [Mass/Vol] Negative (11/22/22 7:19 PM) Normal Negative [facility] UA Auto SS Hemoglobin Ql (U) Negative (11/22/22 7:19 PM) Normal Negative [facility] UA Auto SS Ketones (U) [Mass/Vol] Negative (11/22/22 7:19 PM) Normal Negative [facility] UA Auto SS Athelstan.plasma/Athelstan. RBC (Bld) [Mass ratio] 0-3 /HPF Normal 0-3/HPF [facility] UA Auto SS Mucus Ql (Urine sed) Trace (11/22/22 7:19 PM) Normal [facility] UA Auto SS Nitrite Ql (U) Negative (11/22/22 7:19 PM) Normal Negative [facility] UA Auto SS pH (U) 6.0 *NA* (11/22/22 7:19 PM) Invalid Interpretation Code 5.0 - 9.0 [facility] UA Auto SS Protein (U) [Mass/Vol] Negative (11/22/22 7:19 PM) Normal Negative [facility] UA Auto SS Specific gravity (U) [Rel density] 1.025 *NA* (11/22/22 7:19 PM) Invalid Interpretation Code 1.005 - 1.030 FT UA Auto SS UA Spec Desc Clean Catch (11/22/22 7:19 PM) Normal [facility] UA Auto SS Urobilinogen Qn (U) 0.8695085 {Elba'U}/dL Normal 0.0 - 1.0 EU/dL FT UA Auto SS WBC Auto Ql (U) Negative (11/22/22 7:19 PM) Normal Negative [facility] UA Auto SS WBC LM.HPF (Urine sed) [#/Area] 0-5 /HPF Normal 0-5/HPF [facility] UA Auto SS eGFRon 11-22-2022 GFR/1.73 sq M.predicted among non-blacks MDRD (S/P/Bld) [Vol rate/Area] 76 mL/min/1.73 m2 Normal >=59 [facility] Comment on above: Order Comment: Order added by Discern Expert. Result Comment: Electrical Power Station Technician fahad kidney disease could be indicated at eGFR's of less than 60 mL/min/1.73m2. Kidney failure is indicated at less than 15 mL/min/1.73m2. Performed By: #### 2 961852, 9987521, 5949987, 82831986, 5524308, 3014467 #### [facility] [address] [place] [address] CT HEAD WO CONon 08-14-2022 CT HEAD [...] by: ROC ARNOLD Date: 2022-08-13 22:12 Normal [facility] CBC AUTO DIFFon 08-13-2022 BASO # 0.0 103/ul Normal 0.0-0.1 [facility] Comment on above: Performed By: #### C BC ####[facility] [address] [place] [address]DrHernandez Tucker Basophils/100 WBC (Bld) 0.3 % Normal 0.2-2.0 [facility] Comment on above: Performed By: #### C BC ####[facility] [address] [place] [address]DrHernandez Tucker EO # 0.0 103/ul Normal 0.0-0.7 [facility] Comment on above: Performed By: #### C BC ####[facility] [address] [place] [address]DrHernandez Tucker Eosinophils/100 WBC (Bld) 0.1 % Critically low 0.9-7.0 [facility] Comment on above: Performed By: #### C BC ####[facility] [address] [place] [address]Dr. Douglas Tucker Erythrocyte distribution width (RBC) [Ratio] 12.3 % Normal 11.0-15.0 [facility] Comment on above: Performed By: #### C BC ####[facility] [address] [place], [place] [address]Dr. Douglas Tucker Hematocrit (Bld) [Volume fraction] 41.6 % Normal 36.0-48.0 [facility] Comment on above: Performed By: #### C BC ####[facility] [address] [place], [place] [address]Dr. Douglas Tucker Hemoglobin (Bld) [Mass/Vol] 13.6 g/dL Normal 12.0-16.0 [facility] Comment on above: Performed By: #### C BC ####[facility] [address] [place], [place] [address]Dr. Douglas Tucker IG # 0.05 10e3/ul Critically high 0.00-0.03 [facility] Comment on above: Performed By: #### C BC ####[facility] [address] [place], [place] [address]Dr. Douglas Tucker IG % 0.3 % Normal 0.0-0.5 [facility] Comment on above: Performed By: #### C BC ####[facility] [address] [place], [place] [address]Dr. Douglas Tucker LYMPH # 3.0 103/ul Normal 1.2-3.8 [facility] Comment on above: Performed By: #### C BC ####[facility] [address] [place], [place] [address]Dr. Douglas Tucker Lymphocytes/100 WBC (Bld) 20.9 % Normal 20.5-60.0 [facility] Comment on above: Performed By: #### C BC ####[facility] [address] [place], [place] [address]Dr. Dogulas Garrett MANUAL DIFF REQ NO Normal [facility] Comment on above: Performed By: #### C BC ####[facility] [address] [place] [address]Dr. Douglas Tucker MCH (RBC) [Entitic mass] 31.7 pg Normal 26.7-34.0 [facility] Comment on above: Performed By: #### C BC ####[facility] [address] [place] [address]Dr. Douglas Garrett MCHC (RBC) [Mass/Vol] 32.7 g/dL Normal 29.9-35.2 [facility] Comment on above: Performed By: #### C BC ####[facility] [address] [place] [address]Dr. Douglas Garrett MCV (RBC) [Entitic vol] 97.0 fL Normal 81.0-99.0 [facility] Comment on above: Performed By: #### C BC ####[facility] [address] [place], [place] [address]Dr. Umuana Tucker MONO # 1.0 103/ul Critically high 0.3-0.8 [facility] Comment on above: Performed By: #### C BC ####[facility] [address] [place], [place] [address]Dr. Umuana Tucker Monocytes/100 WBC (Bld) 7.2 % Normal 1.7-12.0 [facility] Comment on above: Performed By: #### C BC ####[facility] [address] [address]DrHernandez Tucker NEUT # 10.2 103/ul Critically high 1.4-6.5 [facility] Comment on above: Performed By: #### C BC ####[facility] [address] [place], [place] [address]DrHernandez Umuana Tucker Neutrophils/100 WBC (Bld) 71.2 % Normal 43.0-75.0 [facility] Comment on above: Performed By: #### C BC ####[facility] [address] [place], [place] [address]Dr. Douglas Tucker Platelet mean volume (Bld) [Entitic vol] 10.6 fL Normal 9.5-13.5 [facility] Comment on above: Performed By: #### C BC ####[facility] [address] [address]Dr. Douglas Tucker PLT 229 103/ul Normal 150-450 [facility] Comment on above: Performed By: #### C BC ####[facility] [address] [address]Dr. Douglas Tucker RBC 4.29 106/ul Normal 4.20-5.40 [facility] Comment on above: Performed By: #### C BC ####[facility] [address] [address]Dr. Douglas Tucker WBC 14.4 103/ul Critically high 4.0-11.0 [facility] Comment on above: Performed By: #### C BC ####[facility] [address] [address]DrHernandez Tucker PROF CHEM 8 (BAS METB)on Anion gap [Moles/Vol] 14.6 mmol/L Normal [facility] Comment on above: Performed By: #### T ZAIDA, BMP #### [facility] [address] [address] [address] Douglas Tucker Calcium [Mass/Vol] 9.0 mg/dL Normal 8.5-10.1 [facility] Comment on above: Performed By: #### T ZAIDA, BMP #### [facility] [address] [address] [address] Douglas Tucker Chloride [Moles/Vol] 107 mmol/L Normal 98-107 [facility] Comment on above: Performed By: #### T SH, BMP #### [facility] [address] [address] [address] Douglas Tucker CO2 [Moles/Vol] 23.2 mmol/L Normal 21.0-32.0 [facility] Comment on above: Performed By: #### T ZAIDA, BMP #### [facility] [address] [place] [address] Dr. Douglas Tucker Creatinine [Mass/Vol] 0.88 mg/dL Normal 0.55-1.02 [facility] Comment on above: Performed By: #### T SH, BMP #### [facility] [address] [place] [address] Dr. Douglas Tucker EGFR-AF BULGARIAN >60 Normal >=60 [facility] Comment on above: Performed By: #### T SH, BMP #### [facility] [address] [place] [address] Dr. Douglas Tucker EGFR-NON AF BULGARIAN >60 Normal >=60 [facility] Comment on above: Performed By: #### T SH, BMP #### [facility] [address] [place] [address] Dr. Douglas Tucker Glucose [Mass/Vol] 100 mg/dL Normal 74-106 [facility] Comment on above: Performed By: #### T SH, BMP #### [facility] [address] [place] [address] Dr. Douglas Tucker Potassium [Moles/Vol] 3.8 mmol/L Normal 3.5-5.1 [facility] Comment on above: Performed By: #### T SH, BMP #### [facility] [address] [place] [address] Dr. Douglas Tucker Sodium [Moles/Vol] 141 mmol/L Normal 136-145 [facility] Comment on above: Performed By: #### T SH, BMP #### [facility] [address] [place] [address] Dr. Douglas Tucker Urea nitrogen [Mass/Vol] 10.0 mg/dL Normal 7.0-18.0 [facility] Comment on above: Performed By: #### T SH, BMP #### [facility] [address] [place] [address] Dr. Douglas Tucker Urea nitrogen/Creatinine [Mass ratio] 11.4 mg/mg Normal [facility] Comment on above: Performed By: #### T SH, BMP #### [facility] [address] [place] [address] Dr. Douglas Tucker TSHon 08-13-2022 TSH 0.730 uIU/mL Normal 0.358-3.740 [facility] Comment on above: Performed By: #### T , BMP #### [facility] [address] [address] [address] Douglas Tucker Automated erythrocytes count in urine sediment (number/area)Ordered By: Mario Perezgles on 06-14-2022 RBC Auto (Urine sed) [#/Area] None seen [HPF] 0-4 [facility] Automated leukocytes count i n urine sediment (number/area)Ordered By: Mario Pee on 06-14-2022 WBC Auto (Urine sed) [#/Area] 20-49 [HPF] 0-4 [facility] Bilirubin Test strip Ql (U)O rdered By: Mario Perezgles on 06-14-2022 Bilirubin Ql (U) Negative Negative [facility] Color Auto (U)Ordered By: Pee on 06-14-2022 Color (U) Yellow Yellow [facility] Ketones Auto test strip (U) [Mass/Vol]Ordered By: Mario Perezgles on 06-14-2022 Ketones (U) [Mass/Vol] Negative Negative [facility] - UrinalysisOrder ed By: Mario Perezgles on 06-14-2022 Hyaline casts LM Ql (Urine sed) 0-8 [LPF] 0-8 [facility] Nitrite Test strip Ql (U)Ord ered By: Mario Perezgles on 06-14-2022 Nitrite Ql (U) Negative Negative [facility] Protein Auto test strip (U) [Mass/Vol]Ordered By: Mario Pee on 06-14-2022 Protein (U) [Mass/Vol] Negative Negative [facility] Specific gravity Auto test s trip (U) [Rel density]Ordered By: Mario Perezgles on 06-14-2022 Specific gravity (U) [Rel density] 1.013 1.001-1.030 [facility] Squamous epithelial cells de tection in urine sediment by light microscopyOrdered By: Mario Perezgles on 06-14-2022 Epithelial cells.squamous LM Ql (Urine sed) 5-9 [HPF] 0-2 [facility] Urine bacteria detection by automated methodOrdered By: Mario Glasgow on 06-14-2022 Bacteria Auto Ql (U) 2+ None Seen [facility] Urine clarity by refractomet ry automatedOrdered By: Mario Glasgow on 06-14-2022 Clarity Refractometry automated (U) Cloudy Clear [facility] Urine culture routineOrdered By: Mario Glasgow on 06-14-2022 Bacteria identified Cx Nom (U) Strep. agalactiae Grp B [facility] Urine glucose measurement by automated test strip (mass/volume)Ordered By: Mario Glasgow on 06-14-2022 Glucose Auto test strip (U) [Mass/Vol] Normal mg/dL Normal [facility] Urine hemoglobin detection b y automated test stripOrdered By: Mario Glasgow on 06-14-2022 Hemoglobin Auto test strip Ql (U) Negative Negative [facility] Urine leukocyte esterase det ection by automated test stripOrdered By: Mario Glasgow on 06-14-2022 Leukocyte esterase Auto test strip Ql (U) 3+ Negative [facility] Urobilinogen Auto test strip (U) [Mass/Vol]Ordered By: Mario Glasgow on 06-14-2022 Urobilinogen (U) [Mass/Vol] Normal mg/dL Normal [facility] pH Auto test strip (U)Ordere d By: Mario Glasgow on 06-14-2022 pH (U) 5.5 [pH] 5.0-9.0 [facility] HCG ( test) IA.rapi d Ql (U)Ordered By: Figueroa Galindo on 05-02-2022 HCG ( test) Ql (U) Negative [facility] CULTURE URINEon 04-25-2022 CULTURE URINE Culture Observations : MODERATE GROWTH OF MIXED GENITAL CRICKET. NO POTENTIAL PATHOGENS SEEN. Normal [facility] Comment on above: Performed By: #### U RCX ####[facility] [address] [address]DrHernandez Tucker ER URINE PROFILEon 3 Bilirubin Ql (U) Negative Normal NEGATIVE [facility] Comment on above: Performed By: #### P REGU, UMICRO, ERUR #### [facility] [address] [address] [address] Douglas Tucker Clarity (U) SL CLOUDY Abnormal CLEAR [facility] Comment on above: Performed By: #### P REGU, UMICRO, ERUR #### [facility] [address] [address] [address] Douglas Tucker Color (U) YELLOW Normal YELLOW [facility] Comment on above: Performed By: #### P REGU, UMICRO, ERUR #### [facility] [address] [address] [address] Douglas CAMPOVERDEAHD A micrscopic examina tion will be performed if indicated. Normal [facility] Comment on above: Performed By: #### P REGU, UMICRO, ERUR #### [facility] [address] [address] [address] Douglas Tucker Glucose Ql (U) Negative Normal NEGATIVE [facility] Comment on above: Performed By: #### P REGU, UMICRO, ERUR #### [facility] [address] [address] [address] Douglas Tucker Hemoglobin Ql (U) SMALL Abnormal NEGATIVE [facility] Comment on above: Performed By: #### P REGU, UMICRO, ERUR #### [facility] [address] [address] [address] Douglas Tucker Ketones Ql (U) Negative Normal NEGATIVE [facility] Comment on above: Performed By: #### P REGU, UMICRO, ERUR #### [facility] [address] [address] [address] Douglas Tucker LEUKOCYTES Negative Normal NEGATIVE [facility] Comment on above: Performed By: #### P REGU, UMICRO, ERUR #### [facility] [address] [address] [address] Douglas Tucker Nitrite Ql (U) Negative Normal NEGATIVE [facility] Comment on above: Performed By: #### P REGU, UMICRO, ERUR #### [facility] [address] [address] [address] Douglas Tucker pH (U) 6.0 [pH] Normal 5-9 [facility] Comment on above: Performed By: #### P REGU, UMICRO, ERUR #### [facility] [address] [address] [address] Douglas Tucker SPEC GRAVITY >=1.030 Abnormal 1.005-<=1.0 25 [facility] Comment on above: Performed By: #### P REGU, UMICRO, ERUR #### [facility] [address] [address] [address] Douglsa Tucker UA PROTEIN TRACE Normal NEGATIVE/ TRACE [facility] Comment on above: Performed By: #### P REGU, UMICRO, ERUR #### [facility] [address] [place] [address] Dr. Douglas Tucker UR MICRO IND INDICATED Normal [facility] Comment on above: Performed By: #### P REGU, UMICRO, ERUR #### [facility] [address] [address] [address] Douglas Tucker Urobilinogen Qn (U) 0.2 {Elba'U}/dL Normal 0.2 - 1. 0 [facility] Comment on above: Performed By: #### P REGU, UMICRO, ERUR #### [facility] [address] [address] [address] Douglas Tucker URon 04-25-2022 , QUAL Negative Normal NEGATIVE [facility] Comment on above: Performed By: #### P REGU, UMICRO, ERUR #### [facility] [address] [address] [address] Douglas Tucker URINE MICROSCOPIC ONLYon BACTERIA MODERATE Abnormal NONE SEEN [facility] Comment on above: Performed By: #### P REGU, UMICRO, ERUR #### [facility] [address] [place] [address] Dr. Douglas Tucker Bacteria identified Cx Nom (U) INDICATED Normal [facility] Comment on above: Performed By: #### P REGU, UMICRO, ERUR #### [facility] [address] [address] [address] Douglas Tucker CAST NONE SEEN Normal NONE SEEN [facility] Comment on above: Performed By: #### P REGU, UMICRO, ERUR #### [facility] [address] [address] [address] Douglas Tucker Crystals LM Nom (Urine sed) NONE SEEN Normal NONE SEEN [facility] Comment on above: Performed By: #### P REGU, UMICRO, ERUR #### [facility] [address] [address] [address] Douglas Tucker Epithelial cells LM Ql (Urine sed) MODERATE Abnormal NONE SEEN /RARE [facility] Comment on above: Performed By: #### P REGU, UMICRO, ERUR #### [facility] [address] [address] [address] Douglas Tucker MUCOUS NONE SEEN Normal NONE SEEN [facility] Comment on above: Performed By: #### P REGU, UMICRO, ERUR #### [facility] [address] [address] [address] Douglas Tucker RBC 2-5 Abnormal 0-2 [facility] Comment on above: Performed By: #### P REGU, UMICRO, ERUR #### [facility] [address] [address] [address] Douglas Tucker WBC 0-2 Abnormal NONE SEEN [facility] Comment on above: Performed By: #### P REGU, UMICRO, ERUR #### [facility] [address] [address] [address] Douglas Tucker COVID-19 SOFIAOrdered By: Adal Garcia on 04-23-2022 SARS-CoV+SARS-CoV-2 (COVID-19) Ag IA.rapid Ql (Resp) Negative Negative [facility] Comment on above: This is a duplicate Ruth SARS Antigen (LILLY) result to be used for statistical tracking purpose only. No Panel InformationOrdered By: Rell Garcia on 04-23-2022 SARS Antigen (LFIA) [facility] Activated partial thrombopla stin time (aPTT) in platelet poor plasma by coagulation aOrdered By: Rell Garcia on 04-10-2022 aPTT Coag (PPP) [Time] 31.6 s 25.1-36.5 [facility] Albumin [Mass/volume] in Ser um or PlasmaOrdered By: Rell Garcia on 04-10-2022 Albumin [Mass/Vol] 4.4 g/dL 3.2-5.5 [facility] Automated erythrocytes count in urine sediment (number/area)Ordered By: Rell Garcia on 04-10-2022 RBC Auto (Urine sed) [#/Area] None seen [HPF] 0-4 [facility] Automated leukocytes count i n urine sediment (number/area)Ordered By: Rell Garcia on 04-10-2022 WBC Auto (Urine sed) [#/Area] 20-49 [HPF] 0-4 [facility] Automated urine hyaline cast s count (number/volume)Ordered By: Rell Garcia on 04-10-2022 Hyaline casts Auto (U) [#/Vol] None seen [LPF] 0-1 [facility] Basophils Auto (Bld) [#/Vol] Ordered By: Rell Garcia on 04-10-2022 Basophils (Bld) [#/Vol] 0.0 10*3/uL 0.0-0.2 [facility] Basophils/100 WBC Auto (Bld) Ordered By: Rell Garcia on 04-10-2022 Basophils/100 WBC (Bld) 0.4 % . F [facility] Bilirubin Test strip Ql (U)O rdered By: Rell Garcia on 04-10-2022 Bilirubin Ql (U) Negative Negative [facility] Casts typing in urine sedime nt by light microscopyOrdered By: Rell Garcia on 04-10-2022 Casts LM Nom (Urine sed) None seen [LPF] None Seen [facility] Color Auto (U)Ordered By: Adal Garcia on 04-10-2022 Color (U) Yellow Yellow [facility] Creatinine and Glomerular fi ltration rate.predicted panel (S/P/Bld)Ordered By: Rell Garcia on 04-10-2022 Creatinine [Mass/Vol] 0.80 mg/dL 0.44-1.03 [facility] Eosinophils Auto (Bld) [#/Vo l]Ordered By: Rell Garcia on 04-10-2022 Eosinophils (Bld) [#/Vol] 0.3 10*3/uL 0.0-0.45 [facility] Eosinophils/100 WBC Auto (Bl d)Ordered By: Rell Garcia on 04-10-2022 Eosinophils/100 WBC (Bld) 3.6 % . [facility] Erythrocyte distribution wid th Auto (RBC) [Ratio]Ordered By: Rell Garcia on 04-10-2022 Erythrocyte distribution width (RBC) [Ratio] 13.0 % 11.9-15.3 [facility] Estimated glomerular filtrat ion rate (GFR) non- AmericanOrdered By: Rell Garcia on 04-10-2022 GFR/1.73 sq M.predicted among non-blacks MDRD (S/P/Bld) [Vol rate/Area] > 60 mL/Min [facility] Globulin Calc (S) [Mass/Vol] Ordered By: Rell Garcia on 04-10-2022 Globulin (S) [Mass/Vol] 3.1 g/dL F [facility] Hematocrit Auto (Bld) [Volum e fraction]Ordered By: Rell Garcia on 04-10-2022 Hematocrit (Bld) [Volume fraction] 44.2 % 34.0-46.4 [facility] Hemoglobin [Mass/volume] in BloodOrdered By: Rell Garcia on 04-10-2022 Hemoglobin (Bld) [Mass/Vol] 14.8 g/dL 11.8-15.4 [facility] Ketones Auto test strip (U) [Mass/Vol]Ordered By: Rell Garcia on 04-10-2022 Ketones (U) [Mass/Vol] Negative Negative [facility] - CoagulationOrde red By: Rell Garcia on 04-10-2022 PT Coag (PPP) [Time] 10.8 s 9.0-12.9 [facility] Leukocytes [#/volume] correc armaan for nucleated erythrocytes in Blood by Automated counOrdered By: Rell Garcia on 04-10-2022 WBC corrected for nucl RBC Auto (Bld) [#/Vol] 8.6 10*3/uL 3.8-11.6 [facility] Lymphocytes Auto (Bld) [#/Vo l]Ordered By: Rell Garcia on 04-10-2022 Lymphocytes (Bld) [#/Vol] 3.0 10*3/uL 1.00-4.8 [facility] Lymphocytes/100 WBC Auto (Bl d)Ordered By: Rell Garcia on 04-10-2022 Lymphocytes/100 WBC (Bld) 35.3 % . [facility] MCH Auto (RBC) [Entitic mass ]Ordered By: Rell Garcia on 04-10-2022 MCH (RBC) [Entitic mass] 31.8 pg 24.7-34.3 [facility] MCHC Auto (RBC) [Mass/Vol]Or dered By: Rell Garcia on 04-10-2022 MCHC (RBC) [Mass/Vol] 33.5 g/dL 32.0-35.0 [facility] MCV Auto (RBC) [Entitic vol] Ordered By: Rell Garcia on 04-10-2022 MCV (RBC) [Entitic vol] 95.0 fL 80-100 [facility] Monocytes Auto (Bld) [#/Vol] Ordered By: Rell Garcia on 04-10-2022 Monocytes (Bld) [#/Vol] 0.6 10*3/uL 0.0-0.8 [facility] Monocytes/100 WBC Auto (Bld) Ordered By: Rell Garcia on 04-10-2022 Monocytes/100 WBC (Bld) 7.0 % . F [facility] Neutrophils Auto (Bld) [#/Vo l]Ordered By: Rell Garcia on 04-10-2022 Neutrophils (Bld) [#/Vol] 4.6 10*3/uL 1.8-7.7 [facility] Neutrophils/100 WBC Auto (Bl d)Ordered By: Rell Garcia on 04-10-2022 Neutrophils/100 WBC (Bld) 53.7 % . [facility] Nitrite Test strip Ql (U)Ord ered By: Rell Garcia on 04-10-2022 Nitrite Ql (U) Negative Negative [facility] No Panel InformationOrdered By: Rell Garcia on 04-10-2022 Estimated GFR () > 60 mL/Min [facility] Comment on above: GFR estimated refere nce range: According to KDOQI guidelines, <60 ml/min/1.73m2 is sufficient to diagnose a patient with chronic kidney disease. Pharmacy Creatinine Clearance (Chem N/A [facility] Nucleated erythrocytes [Pres ence] in Blood by Automated countOrdered By: Rell Garcia on 04-10-2022 Nucleated RBC Auto Ql (Bld) 0.1 /100{WBC} 0-0.5 [facility] Platelet mean volume Auto (B ld) [Entitic vol]Ordered By: Rell Garcia on 04-10-2022 Platelet mean volume (Bld) [Entitic vol] 9.1 fL 6.3-10.7 [facility] Platelet poor plasma interna tional normalized ratio (INR) by coagulation assay (relatOrdered By: Rell Garcia on 04-10-2022 INR Coag (PPP) [Relative time] 1.0 {INR} [facility] Comment on above: INR Therapeutic Rang e [...] 04-10-2022 Platelets (Bld) [#/Vol] 192 10*3/uL 150-450 [facility] Protein Auto test strip (U) [Mass/Vol]Ordered By: Rell Garcia on 04-10-2022 Protein (U) [Mass/Vol] Negative Negative [facility] Protein [Mass/volume] in Ser um or PlasmaOrdered By: Rell Garcia on 04-10-2022 Protein [Mass/Vol] 7.5 g/dL 6.1-7.9 [facility] RBC Auto (Bld) [#/Vol]Ordere d By: Rell Garcia on 04-10-2022 RBC (Bld) [#/Vol] 4.65 10*6/uL 3.60-5.00 [facility] Serum or plasma alanine venegas otransferase measurement without P-5'-P (enzymatic activiOrdered By: Rell Garcia on 04-10-2022 ALT No additional P-5'-P [Catalytic activity/Vol] 19 U/L 10-60 [facility] Serum or plasma albumin/glob ulin mass ratioOrdered By: Rell Garcia on 04-10-2022 Albumin/Globulin [Mass ratio] 1.4 {ratio} [facility] Serum or plasma alkaline molina sphatase measurement (enzymatic activity/volume)Ordered By: Rell Garcia on 04-10-2022 ALP [Catalytic activity/Vol] 47 U/L 32-92 [facility] Serum or plasma anion gap de terminationOrdered By: Rell Garcia on 04-10-2022 Anion gap [Moles/Vol] 13.2 mmol/L 6.0-15.0 [facility] Serum or plasma aspartate am inotransferase measurement (enzymatic activity/volume)Ordered By: Rell Garcia on 04-10-2022 AST [Catalytic activity/Vol] 18 U/L 10-42 [facility] Serum or plasma calcium liam urement (mass/volume)Ordered By: Rell Garcia on 04-10-2022 Calcium [Mass/Vol] 9.5 mg/dL 8.2-10.2 [facility] Serum or plasma chloride fransisca surement (moles/volume)Ordered By: Rell Garcia on 04-10-2022 Chloride [Moles/Vol] 106 mmol/L 95-114 [facility] Serum or plasma glucose liam urement (mass/volume)Ordered By: Rell Garcia on 04-10-2022 Glucose [Mass/Vol] 88 mg/dL 70-100 [facility] Comment on above: ADA recommended refe rence rangeRandom Glucose Reference Range is dependent on time and content of last meal. Glucose of more than 200 mg/dL in a nonstressed, ambulatory subject supports the diagnosis of Diabetes Mellitus. Serum or plasma potassium me asurement (moles/volume)Ordered By: Rell Garcia on 04-10-2022 Potassium [Moles/Vol] 4.1 mmol/L 3.5-5.1 [facility] Serum or plasma sodium measu rement (moles/volume)Ordered By: Rell Garcia on 04-10-2022 Sodium [Moles/Vol] 134 mmol/L 136-146 [facility] Serum or plasma total biliru bin measurement (mass/volume)Ordered By: Rell Garcia on 04-10-2022 Bilirubin [Mass/Vol] 0.7 mg/dL 0.3-1.2 [facility] Serum or plasma total carbon dioxide measurement (moles/volume)Ordered By: Rell Garcia on 04-10-2022 CO2 [Moles/Vol] 18.9 mmol/L 22.0-30.0 [facility] Serum or plasma urea nitroge n measurement (mass/volume)Ordered By: Rell Garica on 04-10-2022 Urea nitrogen [Mass/Vol] 14 mg/dL 9-23 [facility] Specific gravity Auto test s trip (U) [Rel density]Ordered By: Rell Garcia on 04-10-2022 Specific gravity (U) [Rel density] 1.016 1.001-1.030 [facility] Squamous epithelial cells de tection in urine sediment by light microscopyOrdered By: Rell Garcia on 04-10-2022 Epithelial cells.squamous LM Ql (Urine sed) 10-19 [HPF] 0-2 [facility] Urine bacteria detection by automated methodOrdered By: Rell Garcia on 04-10-2022 Bacteria Auto Ql (U) 2+ None Seen [facility] Urine clarity by refractomet ry automatedOrdered By: Rell Garcia on 04-10-2022 Clarity Refractometry automated (U) Cloudy Clear [facility] Urine culture routineOrdered By: Rell Garcia on 04-10-2022 Bacteria identified Cx Nom (U) 2 Days [facility] Urine glucose measurement by automated test strip (mass/volume)Ordered By: Rell Garcia on 04-10-2022 Glucose Auto test strip (U) [Mass/Vol] Normal mg/dL Normal [facility] Urine hemoglobin detection b y automated test stripOrdered By: Rell Garcia on 04-10-2022 Hemoglobin Auto test strip Ql (U) Negative Negative [facility] Urine leukocyte esterase det ection by automated test stripOrdered By: Rell Garcia on 04-10-2022 Leukocyte esterase Auto test strip Ql (U) 3+ Negative [facility] Urobilinogen Auto test strip (U) [Mass/Vol]Ordered By: Rell Garcia on 04-10-2022 Urobilinogen (U) [Mass/Vol] Normal mg/dL Normal [facility] WBC Auto (Bld) [#/Vol]Ordere d By: Rell Garcia on 04-10-2022 WBC (Bld) [#/Vol] 8.6 10*3/uL 3.8-11.6 [facility] pH Auto test strip (U)Ordere d By: Rell Garcia on 04-10-2022 pH (U) 5.5 [pH] 5.0-9.0 [facility] XR ANKLE RT MIN 3 VIEWSon XR [...] by: LIZZIE YU Date: 2022-03-28 22:01 Normal [facility] XR SHOULDER LT 2V or >on [...] by: JASS GRISSOM Date: 2022-02-10 21:41 Normal [facility] CBC AUTO DIFFon 01-28-2022 BASO # 0.0 103/ul Normal 0.0-0.1 [facility] Comment on above: Performed By: #### C BC ####[facility] [address] [place], [place] [address]Dr. Douglas Tucker Basophils/100 WBC (Bld) 0.7 % Normal 0.2-2.0 [facility] Comment on above: Performed By: #### C BC ####[facility] [id number] [address] [place], [place] [address]Dr. Douglas Tucker EO # 0.1 103/ul Normal 0.0-0.7 [facility] Comment on above: Performed By: #### C BC ####[facility] Irbqlxdtom[address] [place], [place] [address]Dr. Douglas Tucker Eosinophils/100 WBC (Bld) 2.2 % Normal 0.9-7.0 [facility] Comment on above: Performed By: #### C BC ####[facility] Flvqzdwlex55[address] [place], [place] [address]Dr. Douglas Tucker Erythrocyte distribution width (RBC) [Ratio] 12.0 % Normal 11.0-15.0 [facility] Comment on above: Performed By: #### C BC ####[facility] Uigacqoawu1663[address] [place], [place] [address]Dr. Douglas Tucker Hematocrit (Bld) [Volume fraction] 41.3 % Normal 36.0-48.0 [facility] Comment on above: Performed By: #### C BC ####[facility] Pxxzgxeuaz3144[address] [place], [place] [address]Dr. Douglas Tucker Hemoglobin (Bld) [Mass/Vol] 13.7 g/dL Normal 12.0-16.0 [facility] Comment on above: Performed By: #### C BC ####[facility] Urglpnezgb1325[address] [place], [place] [address]Dr. Douglas Tucker IG # 0.01 10e3/ul Normal 0.00-0.03 [facility] Comment on above: Performed By: #### C BC ####[facility] Bfzvutloxc[address] [place], [place] [address]DrHernandez Tucker IG % 0.2 % Normal 0.0-0.5 [facility] Comment on above: Performed By: #### C BC ####[facility] [address] [place] [address]DrHernandez Tucker LYMPH # 2.1 103/ul Normal 1.2-3.8 [facility] Comment on above: Performed By: #### C BC ####[facility] U[address]irvmvoe75[address] [address]DrHernandez Tucker Lymphocytes/100 WBC (Bld) 38.5 % Normal 20.5-60.0 [facility] Comment on above: Performed By: #### C BC ####[facility] Jxzyscvcek10[address] [place], [place] [address]DrHernandez Tucker MANUAL DIFF REQ NO Normal [facility] Comment on above: Performed By: #### C BC ####[facility] Izsurdmutp5[address] [place], [place] [address]DrHernandez Tucker MCH (RBC) [Entitic mass] 31.9 pg Normal 26.7-34.0 [facility] Comment on above: Performed By: #### C BC ####[facility] Nxixkanfim8744[address] [place], [place] [address]DrHernandez Tucker MCHC (RBC) [Mass/Vol] 33.2 g/dL Normal 29.9-35.2 [facility] Comment on above: Performed By: #### C BC ####[facility] Vdgpjhtahh64[address] [place], [place] [address]DrHernandez Tucker MCV (RBC) [Entitic vol] 96.0 fL Normal 81.0-99.0 [facility] Comment on above: Performed By: #### C BC ####[facility] Sxkkvcmpoa2599[address] [place], [place] [address]DrHernandez Tucker MONO # 0.4 103/ul Normal 0.3-0.8 [facility] Comment on above: Performed By: #### C BC ####[facility] Ergykjvcqj475[address] [place], [place] [address]DrHernandez Tucker Monocytes/100 WBC (Bld) 7.8 % Normal 1.7-12.0 [facility] Comment on above: Performed By: #### C BC ####[facility] Ixsqdsrxue[address] [place] [address]Dr. Douglas Tucker NEUT # 2.8 103/ul Normal 1.4-6.5 [facility] Comment on above: Performed By: #### C BC ####[facility] Fivydmzxkw[address] [place] [address]Dr. Douglas Tucker Neutrophils/100 WBC (Bld) 50.6 % Normal 43.0-75.0 [facility] Comment on above: Performed By: #### C BC ####[facility] Dhoqshrkfp8573[address] [place], [place] [address]Dr. Douglas Tucker Platelet mean volume (Bld) [Entitic vol] 10.7 fL Normal 9.5-13.5 [facility] Comment on above: Performed By: #### C BC ####[facility] Smhbqkbhnh1827[address] [place], [place] [address]Dr. Douglas Tucker PLT 189 103/ul Normal 150-450 [facility] Comment on above: Performed By: #### C BC ####[facility] Orbbrssghn037[address] [place], [place] [address]Dr. Douglas Tucker RBC 4.30 106/ul Normal 4.20-5.40 [facility] Comment on above: Performed By: #### C BC ####[facility] Gywufjyscm805[address] [place], [place] [address]Dr. Douglas Tucker WBC 5.5 103/ul Normal 4.0-11.0 [facility] Comment on above: Performed By: #### C BC ####[facility] Jlqbzzlpxe[address] [place], [place] [address]Dr. Douglas Tucker CULTURE URINEon 01-28-2022 CULTURE URINE Culture Observations : MODERATE GROWTH OF MIXED GENITAL CRICKET. NO POTENTIAL PATHOGENS SEEN. Normal [facility] Comment on above: Performed By: #### U RCX ####[facility] Sjdblxuoha424[address] [place], [place] [address]Dr. Douglas Garrett ER URINE PROFILEon 10-10-202 2 Bilirubin Ql (U) Negative Normal NEGATIVE [facility] Comment on above: Performed By: #### U MICRO, ERUR #### [facility] [address] [place] [address] Dr. Douglas Tucker Clarity (U) CLEAR Normal CLEAR [facility] Comment on above: Performed By: #### U MICRO, ERUR #### [facility] [address] [address] [address] Douglas Tucker Color (U) LT. YELLOW Normal YELLOW [facility] Comment on above: Performed By: #### U MICRO, ERUR #### [facility] [address] [place] [address] Dr. Douglas Tucker ERUAHD A micrscopic examina tion will be performed if indicated. Normal [facility] Comment on above: Performed By: #### U MICRO, ERUR #### [facility] [address] [place] [address] Dr. Douglas Tucker Glucose Ql (U) Negative Normal NEGATIVE [facility] Comment on above: Performed By: #### U MICRO, ERUR #### [facility] [address] [place] [address] Dr. Douglas Tucker Hemoglobin Ql (U) TRACE-INTACT Abnormal NEGATIVE [facility] Comment on above: Performed By: #### U MICRO, ERUR #### [facility] [address] [place] [address] Dr. Douglas Tucker Ketones Ql (U) Negative Normal NEGATIVE [facility] Comment on above: Performed By: #### U MICRO, ERUR #### [facility] [address] [address] [address] Douglas Tucker LEUKOCYTES TRACE Abnormal NEGATIVE [facility] Comment on above: Performed By: #### U MICRO, ERUR #### [facility] [address] [address] [address] Douglas Tucker Nitrite Ql (U) Negative Normal NEGATIVE [facility] Comment on above: Performed By: #### U MICRO, ERUR #### [facility] [address] [place] [address] Dr. Douglas Tucker pH (U) 6.5 [pH] Normal 5-9 [facility] Comment on above: Performed By: #### U MICRO, ERUR #### [facility] [address] [address] [address] Douglas Tucker SPEC GRAVITY 1.020 Normal 1.005-<=1.0 25 [facility] Comment on above: Performed By: #### U MICRO, ERUR #### [facility] [address] [address] [address] Douglas Tucker UA PROTEIN Negative Normal NEGATIVE/ TRACE [facility] Comment on above: Performed By: #### U MICRO, ERUR #### [facility] [address] [address] [address] Douglas Tucker UR MICRO IND INDICATED Normal [facility] Comment on above: Performed By: #### U MICRO, ERUR #### [facility] [address] [place] [address] Dr. Douglas Tucker Urobilinogen Qn (U) 0.2 {Elba'U}/dL Normal 0.2 - 1. 0 [facility] Comment on above: Performed By: #### U MICRO, ERUR #### [facility] [address] [address] [address] Douglas Tucker PROF 14(COMP METB)on 022 Albumin [Mass/Vol] 3.9 g/dL Normal 3.4-5.0 [facility] Comment on above: Performed By: #### C MP ####[facility] [address] [address]Dr. Douglas Tucker Albumin/Globulin [Mass ratio] 1.1 {ratio} Normal [facility] Comment on above: Performed By: #### C MP ####[facility] [address]yzw[address] [address]Dr. Douglas Tucker ALP [Catalytic activity/Vol] 52 U/L Normal 46-116 [facility] Comment on above: Performed By: #### C MP ####[facility] Oxthzyivea[address] [address]Dr. Douglas Tucker ALT [Catalytic activity/Vol] 31 U/L Normal 14-59 [facility] Comment on above: Performed By: #### C MP ####[facility] X[address] [address]Dr. Douglas Tucker Anion gap [Moles/Vol] 9.6 mmol/L Normal [facility] Comment on above: Performed By: #### C MP ####[facility] Y[address]ktgkl[address] [address]Dr. Douglas Tucker AST [Catalytic activity/Vol] 15 U/L Normal 15-37 [facility] Comment on above: Performed By: #### C MP ####[facility] Isc[address]fcwq[address] [address]Dr. Douglas Tucker Bilirubin [Mass/Vol] 0.3 mg/dL Normal 0.2-1.0 [facility] Comment on above: Performed By: #### C MP ####[facility] Tbdrlcfsmc[address] [place], [place] [address]Dr. Douglas Garrett Calcium [Mass/Vol] 8.6 mg/dL Normal 8.5-10.1 [facility] Comment on above: Performed By: #### C MP ####[facility] Sfiyfjaoke[address] [place], [place] [address]Dr. Douglas Garrett Chloride [Moles/Vol] 107 mmol/L Normal 98-107 [facility] Comment on above: Performed By: #### C MP ####[facility] [address]iprqs[address] [address]Dr. Douglas Garrett CO2 [Moles/Vol] 27.4 mmol/L Normal 21.0-32.0 [facility] Comment on above: Performed By: #### C MP ####[facility] [address]axcfjl[address] [place] [address]Dr. Douglas Tucker Creatinine [Mass/Vol] 0.90 mg/dL Normal 0.55-1.02 [facility] Comment on above: Performed By: #### C MP ####[facility] Gnodjtetae[address] [place] [address]Dr. Douglas Garrett EGFR-AF BULGARIAN >60 Normal >=60 [facility] Comment on above: Performed By: #### C MP ####[facility] Z[address]eydeeqe[address] [place] [address]Dr. Douglas Tucker EGFR-NON AF BULGARIAN >60 Normal >=60 [facility] Comment on above: Performed By: #### C MP ####[facility] Natvzxxncu[address] [place] [address]Dr. Douglas Tucker Globulin (S) [Mass/Vol] 3.4 g/dL Normal T [facility] Comment on above: Performed By: #### C MP ####[facility] F[address]zpqggu72[address] [address]Dr. Douglas Tucker Glucose [Mass/Vol] 90 mg/dL Normal 74-106 [facility] Comment on above: Performed By: #### C MP ####[facility] [address]orndhwv[address] [place] [address]Dr. Douglas Tucker Potassium [Moles/Vol] 4.0 mmol/L Normal 3.5-5.1 [facility] Comment on above: Performed By: #### C MP ####[facility] Ekzdegsart[address] [place], [place] [address]Dr. Douglas Tucker Protein [Mass/Vol] 7.3 g/dL Normal 6.4-8.2 [facility] Comment on above: Performed By: #### C MP ####[facility] Ucrzhllobk[address] [address]Dr. Douglas Tucker Sodium [Moles/Vol] 140 mmol/L Normal 136-145 [facility] Comment on above: Performed By: #### C MP ####[facility] T[address]okal[address] [place], [place] [address]Dr. Douglas Tucker Urea nitrogen [Mass/Vol] 10.0 mg/dL Normal 7.0-18.0 [facility] Comment on above: Performed By: #### C MP ####[facility] Z[address]xw[address]yzml[address] [place], [place] [address]Dr. Douglas Tucker Urea nitrogen/Creatinine [Mass ratio] 11.1 mg/mg Normal [facility] Comment on above: Performed By: #### C MP ####[facility] [address]ssaup[address] [address]Dr. Douglas Tucker URINE MICROSCOPIC ONLYon BACTERIA MODERATE Abnormal NONE SEEN [facility] Comment on above: Performed By: #### U MICRO, ERUR #### [facility] [address] [address] [address] Douglas Tucker Bacteria identified Cx Nom (U) INDICATED Normal [facility] Comment on above: Performed By: #### U MICRO, ERUR #### [facility] [address] [address] [address] Douglas Tucker CAST NONE SEEN Normal NONE SEEN [facility] Comment on above: Performed By: #### U MICRO, ERUR #### [facility] [address] [address] [address] Douglas Tucker Crystals LM Nom (Urine sed) NONE SEEN Normal NONE SEEN [facility] Comment on above: Performed By: #### U MICRO, ERUR #### [facility] [address] [address] [address] Douglas Tucker Epithelial cells LM Ql (Urine sed) FEW Abnormal NONE SEEN /RARE [facility] Comment on above: Performed By: #### U MICRO, ERUR #### [facility] [address] [address] [address] Douglas Tucker MUCOUS NONE SEEN Normal NONE SEEN [facility] Comment on above: Performed By: #### U MICRO, ERUR #### [facility] [address] [address] [address] Douglas Tucker RBC 0-2 Normal 0-2 [facility] Comment on above: Performed By: #### U MICRO, ERUR #### [facility] [address] [address] [address] Douglas Tucker WBC 2-5 Abnormal NONE SEEN [facility] Comment on above: Performed By: #### U MICRO, ERUR #### [facility] [address] [address] [address] Douglas Tucker US KIDNEYSon 01-28-2022 US KIDNEYS EXAMINATION: US KIDN EYS HISTORY: Pain ; right flank pain for [...] RICHELLE BUSH Date: 2022-01-28 13:45 Normal [facility] CBC AUTO DIFFon 10-29-2021 BASO # 0.1 103/ul Normal 0.0-0.1 [facility] Comment on above: Performed By: #### C BC ####[facility] Toftdkueyr[address] [place] [address]DrHernandez Tucker Basophils/100 WBC (Bld) 0.8 % Normal 0.2-2.0 [facility] Comment on above: Performed By: #### C BC ####[facility] Stfsepczzm[address] [place], [place] [address]DrHernandez Tucker EO # 0.2 103/ul Normal 0.0-0.7 [facility] Comment on above: Performed By: #### C BC ####[facility] Sh[address]colpab[address] [place] [address]DrHernandez Tucker Eosinophils/100 WBC (Bld) 3.0 % Normal 0.9-7.0 [facility] Comment on above: Performed By: #### C BC ####[facility] Pvypevygie[address] [place] [address]DrHernandez Tucker Erythrocyte distribution width (RBC) [Ratio] 12.2 % Normal 11.0-15.0 [facility] Comment on above: Performed By: #### C BC ####[facility] Hgietjokcq495[address] [place] [address]DrHernandez Tucker Hematocrit (Bld) [Volume fraction] 39.9 % Normal 36.0-48.0 [facility] Comment on above: Performed By: #### C BC ####[facility] Uhanpnumar[address] [place] [address]Dr. Douglas Tucker Hemoglobin (Bld) [Mass/Vol] 13.5 g/dL Normal 12.0-16.0 [facility] Comment on above: Performed By: #### C BC ####[facility] R[address]mfsurf[address] [place] [address]Dr. Douglas Tucker IG # 0.01 10e3/ul Normal 0.00-0.03 [facility] Comment on above: Performed By: #### C BC ####[facility] Cctxgczynu37[address] [place], [place] [address]Dr. Douglas Garrett IG % 0.2 % Normal 0.0-0.5 [facility] Comment on above: Performed By: #### C BC ####[facility] Ierrcrqruy[address] [place], [place] [address]DrHernandez Douglas Garrett LYMPH # 3.0 103/ul Normal 1.2-3.8 [facility] Comment on above: Performed By: #### C BC ####[facility] Xhoqeazapb[address] [place], [place] [address]DrHernandez Douglas Garrett Lymphocytes/100 WBC (Bld) 44.6 % Normal 20.5-60.0 [facility] Comment on above: Performed By: #### C BC ####[facility] Iwcgomwitg[address] [place], [place] [address]DrHernandez Douglas Garrett MANUAL DIFF REQ NO Normal [facility] Comment on above: Performed By: #### C BC ####[facility] Mskqqvgmrq[address] [place], [place] [address]DrHernandez Douglas Garrett MCH (RBC) [Entitic mass] 32.1 pg Normal 26.7-34.0 [facility] Comment on above: Performed By: #### C BC ####[facility] Pymnwfgguu9258[address] [place], [place] [address]Dr. Umuana Tucker MCHC (RBC) [Mass/Vol] 33.8 g/dL Normal 29.9-35.2 [facility] Comment on above: Performed By: #### C BC ####[facility] Pgieykxyjj20[address] [place] [address]DrHernandez Tucker MCV (RBC) [Entitic vol] 95.0 fL Normal 81.0-99.0 [facility] Comment on above: Performed By: #### C BC ####[facility] Jmeiuprziy48[address] [place], [place] [address]DrHernandez Tucker MONO # 0.5 103/ul Normal 0.3-0.8 [facility] Comment on above: Performed By: #### C BC ####[facility] Vcnylmnbiq2765[address] [place], [place] [address]DrHernandez Tucker Monocytes/100 WBC (Bld) 7.8 % Normal 1.7-12.0 [facility] Comment on above: Performed By: #### C BC ####[facility] Gtsnvzwfyp2064[address] [place], [place] [address]DrHernandez Tucker NEUT # 2.9 103/ul Normal 1.4-6.5 [facility] Comment on above: Performed By: #### C BC ####[facility] Pkaleurjkf5[address] [place], [place] [address]DrHernandez Tucker Neutrophils/100 WBC (Bld) 43.6 % Normal 43.0-75.0 [facility] Comment on above: Performed By: #### C BC ####[facility] Irybjgfung6[address] [place], [place] [address]DrHernandez Tucker Platelet mean volume (Bld) [Entitic vol] 11.1 fL Normal 9.5-13.5 [facility] Comment on above: Performed By: #### C BC ####[facility] Wzwxohulsi01[address] [place], [place] [address]DrHernandez Tucker PLT 188 103/ul Normal 150-450 [facility] Comment on above: Performed By: #### C BC ####[facility] Yxikuijmmq958[address] [place], [place] [address]DrHernandez Tucker RBC 4.20 106/ul Normal 4.20-5.40 [facility] Comment on above: Performed By: #### C BC ####[facility] Vdklkuiisz[address] [address]Dr. Douglas Tucker WBC 6.6 103/ul Normal 4.0-11.0 [facility] Comment on above: Performed By: #### C BC ####[facility] D[address]etwacev[address] [address]Dr. Douglas Tucker MAGNESIUMon 10-29-2021 Magnesium [Mass/Vol] 2.1 mg/dL Normal 1.8-2.4 [facility] Comment on above: Performed By: #### Alyse Alejandro, CMP ####[facility] Mnewxjcwfb7[address] [place], [place] [address]Dr. Douglas Tucker PROF 14(COMP METB)on 022 Albumin [Mass/Vol] 3.6 g/dL Normal 3.4-5.0 [facility] Comment on above: Performed By: #### Alyse Alejandro, CMP ####[facility] Hnrifzvkbd29[address] [place], [place] [address]Dr. Douglas Tucker Albumin/Globulin [Mass ratio] 1.2 {ratio} Normal [facility] Comment on above: Performed By: #### Alyse Alejandro, CMP ####[facility] Rtkowiomlv[address] [place], [place] [address]Dr. Douglas Tucker ALP [Catalytic activity/Vol] 61 U/L Normal 46-116 [facility] Comment on above: Performed By: #### Alyse Alejandro, CMP ####[facility] Jcvjrormvf04[address] [place], [place] [address]Dr. Douglas Tucker ALT [Catalytic activity/Vol] 25 U/L Normal 14-59 [facility] Comment on above: Performed By: #### Alyse Alejandro, CMP ####[facility] Ibjkyasptv15[address] [place], [place] [address]Dr. Douglas Tucker Anion gap [Moles/Vol] 12.4 mmol/L Normal [facility] Comment on above: Performed By: #### Alyse Alejandro, CMP ####[facility] Gdsfjhmysm40[address] [place], [place] [address]Dr. Douglas Tucker AST [Catalytic activity/Vol] 23 U/L Normal 15-37 [facility] Comment on above: Performed By: #### M G, CMP ####[facility] S[address]zhlnduu[address] [address]Dr. Douglas Tucker Bilirubin [Mass/Vol] 0.3 mg/dL Normal 0.2-1.0 [facility] Comment on above: Performed By: #### M G, CMP ####[facility] Clwuwnyscs[address] [place] [address]Dr. Douglas Tucker Calcium [Mass/Vol] 8.5 mg/dL Normal 8.5-10.1 [facility] Comment on above: Performed By: #### Alyse G, CMP ####[facility] Tlwllyeruq[address] [place], [place] [address]Dr. Douglas Tucker Chloride [Moles/Vol] 106 mmol/L Normal 98-107 [facility] Comment on above: Performed By: #### Alyse Alejandro, CMP ####[facility] Obfazeczjw9[address] [place], [place] [address]Dr. Douglas Tucker CO2 [Moles/Vol] 22.8 mmol/L Normal 21.0-32.0 [facility] Comment on above: Performed By: #### Alyse G, CMP ####[facility] Ikajdvfaxy91[address] [place], [place] [address]Dr. Douglas Tucker Creatinine [Mass/Vol] 0.76 mg/dL Normal 0.55-1.02 [facility] Comment on above: Performed By: #### Alyse Alejandro, CMP ####[facility] Playthzuqz[address] [place] [address]Dr. Douglas Tucker EGFR-AF BULGARIAN >60 Normal >=60 [facility] Comment on above: Performed By: #### M G, CMP ####[facility] T[address]yozfvyb[address] [address]Dr. Douglas Tucker EGFR-NON AF BULGARIAN >60 Normal >=60 [facility] Comment on above: Performed By: #### M G, CMP ####[facility] Akchfcizij[address] [place], [place] [address]Dr. Douglas Tucker Globulin (S) [Mass/Vol] 3.0 g/dL Normal [facility] Comment on above: Performed By: #### M G, CMP ####[facility] Mprswcuaup[address] [place] [address]Dr. Douglas Tucker Glucose [Mass/Vol] 110 mg/dL Critically high 74-106 [facility] Comment on above: Performed By: #### M G, CMP ####[facility] Hcujbxmifq[address] [place] [address]Dr. Douglas Tucker Potassium [Moles/Vol] 4.2 mmol/L Normal 3.5-5.1 [facility] Comment on above: Performed By: #### M Javon, CMP ####[facility] Y[address]weehqueb[address] [place] [address]Dr. Douglas Tucker Protein [Mass/Vol] 6.6 g/dL Normal 6.4-8.2 [facility] Comment on above: Performed By: #### Alyse Alejandro, CMP ####[facility] Qiixvwnngu[address] [place] [address]Dr. Douglas Tucker Sodium [Moles/Vol] 137 mmol/L Normal 136-145 [facility] Comment on above: Performed By: #### M Javon, CMP ####[facility] Ltdetumdbt[address] [place] [address]Dr. Douglas Tucker Urea nitrogen [Mass/Vol] 12.0 mg/dL Normal 7.0-18.0 [facility] Comment on above: Performed By: #### Alyse Alejandro, CMP ####[facility] Meriilsqpz[address] [place] [address]Dr. Douglas Tucker Urea nitrogen/Creatinine [Mass ratio] 15.8 mg/mg Normal [facility] Comment on above: Performed By: #### M G, CMP ####[facility] [address]wsluiykb[address] [place] [address]Dr. Douglas Tucker ALLIED HEALTHon 03-07-2021 [facility] HNO ID: [id number] Author: RT Pati(R) Service: Radiology Author Type: [...] RT Pati(R) March 07, 2021 5:32 PM [facility] HNO ID: [id number] Author: Rosalie Haile MD Service: ? Author Type: Physician Type: Discharge Summary Filed: 03/11/2021 7:31 PM Note Text: Internal Medicine discharge [facility] PATIENT NAME: Sully Enriquez Discharge DATE: 03/07/2021 [...] known as: ZANAFLEX Rosalie Haile MD Normal [facility] HISTORY PHYSICALon HISTORY PHYSICAL HNO ID: [id number] Author: Rosalie Haile MD Service: ? Author Type: Physician Type: HANDP Filed: 03/11/2021 7:31 PM Note Text: [facility] SULLY ENRIQUEZ : 1990 AGE: 31 SEX: F CSN: [id number] [facility] [place] [facility] LOCATION: [facility] ATTENDING PHYSICIAN: Rosalie Haile M.D. ? ? DATE OF SERVICE: 03/06/2021 ? ? SUBJECTIVE: Patient with a history of diabetes and obesity. Admitted to the hospital with seizure. ?This is a 31 year old female with a hx of seizures, diabetes, anxiety, and conversion disorder, who reportedly had a seizure at the airport [facility]. She and her boyfriend had just [...] H Adonis Mahoney MD 5 mL at 03/06/211 - dextrose 40 % 15 g 15 [...] 40.1 WBC (k/uL) Date Value 03/06/2021 [facility] consultants notes reviewed Most recent images Reviewed [...] goiter No carotid bruits. Rosalie Haile MD [facility] MRI BRAIN WO IVCONon 021 MRI BRAIN [...] Routine noncontrast MRI protocol including diffusion images. [id number] MRV brain with post-processing performed at the [...] intravenous contrast. Patent major dural venous sinuses. Product Safety Tester: MAVERICK Transcribe Date/Time: Mar 07 2021 5:46P Dictated by : HOLLAND MUELLER MD This examination was interpreted and the report reviewed and electronically signed by: HOLLAND MUELLER MD on Mar 07 2021 5:51PM EST [id number] Normal [facility] MRV BRAIN WO IVCONon 021 MRV BRAIN WO IVCON * * *Final Report* * * DATE OF EXAM: Mar 07 2021 5:42PM FVM 0335 - MRV BRAIN WO IVCON / PROCEDURE REASON: Dural venous sinus thrombosis suspected * * * * Physician Interpretation * * * * EXAMINATION: MRI BRAIN WO IVCON, MRV BRAIN WO IVCON CLINICAL HISTORY: Clinical concern for dural venous sinus thrombosis. Headache. TECHNIQUE: Routine noncontrast MRI protocol including diffusion images. [id number] MRV brain with post-processing performed at the [...] intravenous contrast. Patent major dural venous sinuses. Product Safety Tester: MAVERICK Transcribe Date/Time: Mar 07 2021 5:46P Dictated by : HOLLAND MUELLER MD This examination was interpreted and the report reviewed and electronically signed by: HOLLAND MUELLER MD on Mar 07 2021 5:51PM EST [id number] [facility] NURSING PROGon 03-07-2021 NURSING PROG HNO ID: [id number] Author: Toya Pompa RN Service: ? Author Type: Registered Nurse Type: Nursing Progress Note Filed: 03/07/2021 11:35 PM Note Text: Nursing Progress Note Patient Name: Sully Enriquez Patient Location: Pt discharged, transferred via wheelchair to exit where was picking her up. IV/tele removed. All belongings accounted for. This note was completed by: Toya Pompa [facility] NURSING PROG HNO ID: [id number] Author: Cordelia Faye RN Service: Nursing Author [...] pitting edema BLE. Call light within reach. [facility] 1630 pt asks to be d/c today and have MRI as OP per neurology recs. Dr Haile paged. 1705 pt to MRI. Medicated with 25 mg of Atarax prior to MRI. [address] Haile to wait for MRI results. If neurology signs off after the MRI is resulted will reach dr Hiale for d/c orders. [facility] This note was completed by: Cordelia Faye [facility] NURSING PROG HNO ID: [id number] Author: Breanne Reis RN Service: ? Author Type: Registered Nurse Type: Nursing Progress Note Filed: 03/07/2021 6:30 AM Note Text: Nursing Progress Note Patient Name: Sully Enriquez Patient Location: [facility]/ Daily Note : Assumed care of pt [...] This note was completed by: Smiley Raymundo [facility] NURSING PROG HNO ID: [id number] Author: Yoselin Cui RN Service: Nursing Author Type: Registered Nurse Type: Nursing Progress Note Filed: 03/06/2021 10:38 PM Note Text: Nursing Progress Note Patient Name: Sully Enriquez Patient Location: [facility]/PKTA Transfer Note: Patient transferred into room/unit PKT-12 in stable condition. Actions taken: Alert and oriented x 3. Patient was an ED hold. Admission database completed. Call light in reach. Smiley [facility] will do physical and skin assessments and complete NPR and skin flow sheets. This note was completed by: Yoselin Cui [facility] HEALTHon 03-06-2021 ALLIED HEALTH HNO ID: [id number] Author: HAWA [place]) Service: ? Author Type: Technologist Type: Allied [...] Sanam(R) March 06, 2021 2:45 AM Normal [facility] CBC and Differentialon 03-06 Abs Baso 0.04 k/uL Normal <0.11 [facility] Comment on above: Performed By: #### C K, ALCO, CBCDIF, CMP, MG1 ####[place] [id number] [place], [place] [phone] Abs Montour 0.55 k/uL Normal <0.87 [facility] Comment on above: Performed By: #### C K, ALCO, CBCDIF, CMP, MG1 ####[place] [phone] Abs Neut 3.17 k/uL Normal 1.45-7.50 [facility] Comment on above: Performed By: #### C K, ALCO, CBCDIF, CMP, MG1 ####[place] [phone] Absolute nRBC <0.01 Normal <0.01 [facility] Comment on above: Performed By: #### C K, ALCO, CBCDIF, CMP, MG1 ####[place] [phone] Basophils/100 WBC (Bld) 0.6 % Normal [facility] Comment on above: Performed By: #### C K, ALCO, CBCDIF, CMP, MG1 ####[place] [phone] DTYPE Auto Diff Normal [facility] Comment on above: Performed By: #### C K, ALCO, CBCDIF, CMP, MG1 ####[place] [id number] Eosinophils (Bld) [#/Vol] 0.17 10*3/uL Normal <0.46 [facility] Comment on above: Performed By: #### C K, ALCO, CBCDIF, CMP, MG1 ####[place] [phone] Eosinophils/100 WBC (Bld) 2.5 % Normal [facility] Comment on above: Performed By: #### C K, ALCO, CBCDIF, CMP, MG1 ####[place] [phone] Erythrocyte distribution width (RBC) [Ratio] 12.0 % Normal 11.5-15.0 [facility] Comment on above: Performed By: #### C K, ALCO, CBCDIF, CMP, MG1 ####[address] Hematocrit (Bld) [Volume fraction] 40.1 % Normal 36.0-46.0 [facility] Comment on above: Performed By: #### C K, ALCO, CBCDIF, CMP, MG1 ####[place] [phone] Hemoglobin (Bld) [Mass/Vol] 13.2 g/dL Normal 11.5-15.5 [facility] Comment on above: Performed By: #### C K, ALCO, CBCDIF, CMP, MG1 ####[place] [phone] Lymphocytes (Bld) [#/Vol] 2.85 10*3/uL Normal 1.00-4.00 [facility] Comment on above: Performed By: #### C K, ALCO, CBCDIF, CMP, MG1 ####[place] [phone] Lymphocytes/100 WBC (Bld) 42.0 % Normal [facility] Comment on above: Performed By: #### C K, ALCO, CBCDIF, CMP, MG1 ####[place] [phone] MCH 31.8 pG Normal 26.0-34.0 [facility] Comment on above: Performed By: #### C K, ALCO, CBCDIF, CMP, MG1 ####[place] [phone] MCHC (RBC) [Mass/Vol] 32.9 g/dL Normal 30.5-36.0 [facility] Comment on above: Performed By: #### C K, ALCO, CBCDIF, CMP, MG1 ####[place] [phone] MCV (RBC) [Entitic vol] 96.6 fL Normal 80.0-100.0 [facility] Comment on above: Performed By: #### C K, ALCO, CBCDIF, CMP, MG1 ####[place] [phone] Monocytes/100 WBC (Bld) 8.1 % Normal [facility] Comment on above: Performed By: #### C K, ALCO, CBCDIF, CMP, MG1 ####[place] [phone] Neutrophils/100 WBC (Bld) 46.8 % Normal [facility] Comment on above: Performed By: #### C K, ALCO, CBCDIF, CMP, MG1 ####[place] [phone] NRBCs 0.0 /100 WBC Normal 0 [facility] Comment on above: Performed By: #### C K, ALCO, CBCDIF, CMP, MG1 ####[place] [phone] Platelet mean volume (Bld) [Entitic vol] 10.7 fL Normal 9.0-12.7 [facility] Comment on above: Performed By: #### C K, ALCO, CBCDIF, CMP, MG1 ####[place] [phone] Platelets (Bld) [#/Vol] 183 10*3/uL Normal 150-400 [facility] Comment on above: Performed By: #### C K, ALCO, CBCDIF, CMP, MG1 ####[place] [phone] RBC (Bld) [#/Vol] 4.15 10*6/uL Normal 3.90-5.20 [facility] Comment on above: Performed By: #### C K, ALCO, CBCDIF, CMP, MG1 ####[place] [phone] WBC (Bld) [#/Vol] 6.79 10*3/uL Normal 3.70-11.00 [facility] Comment on above: Performed By: #### C K, ALCO, CBCDIF, CMP, MG1 ####[address], [place] [phone] CKon 03-06-2021 CK [Catalytic activity/Vol] 103 U/L Normal 30-220 [facility] Comment on above: Performed By: #### C K, ALCO, CBCDIF, CMP, MG1 ####[facility] [place], [place] [phone] CONSULTon 03-06-2021 CONSULT HNO ID: [id number] Author: Saravanan Yancey MD Service: Neurology General Author Type: Resident Type: Consults Filed: 03/06/2021 5:10 PM Note Text: ----- Attestation signed by Tim Sanches MD at 03/06/2021 9:16 PM [facility] STAFF PHYSICIAN NOTE OF [...] her had just deplaned coming back from [employer] [place] days and she had not [...] [place] who is a family doctor in [facility], and she has noted hx [...] Facility-Administered Medica (more content not included)... Normal [facility] CT BRAIN WO IVCONon 03-06-[address] [...] Other: No depressed skull fracture is seen. Communication Analyst (topogram) images: Non-diagnostic. IMPRESSION: No CT evidence of an acute intracranial abnormality. Other: details above. Product Safety Tester: MAVERICK Transcribe Date/Time: Mar 06 2021 3:13A Dictated by : JENN MORENO MD This examination was interpreted and the report reviewed and electronically signed by: JENN MORENO MD on Mar 06 2021 3:15AM EST [id number] Normal [facility] Comp Metabolic Panelon 03-06 Albumin [Mass/Vol] 4.6 g/dL Normal 3.5-5.0 [facility] Comment on above: Performed By: #### C K, ALCO, CBCDIF, CMP, MG1 ####[address] [phone] ALP [Catalytic activity/Vol] 67 U/L Normal 34-123 [facility] Comment on above: Performed By: #### C K, ALCO, CBCDIF, CMP, MG1 ####[address] [phone] ALT [Catalytic activity/Vol] 15 U/L Normal 0-45 [facility] Comment on above: Performed By: #### C K, ALCO, CBCDIF, CMP, MG1 ####[address] [phone] Anion gap [Moles/Vol] 10 mmol/L Normal 9-18 [facility] Comment on above: Performed By: #### C K, ALCO, CBCDIF, CMP, MG1 ####[place] [address] AST [Catalytic activity/Vol] 15 U/L Normal 7-40 [facility] Comment on above: Performed By: #### C K, ALCO, CBCDIF, CMP, MG1 ####[place] [address] Bilirubin [Mass/Vol] 0.2 mg/dL Normal 0.2-1.3 [facility] Comment on above: Performed By: #### C K, ALCO, CBCDIF, CMP, MG1 ####[place] [address] Calcium [Mass/Vol] 9.3 mg/dL Normal 8.5-10.5 [facility] Comment on above: Performed By: #### C K, ALCO, CBCDIF, CMP, MG1 ####[place] [phone] Chloride [Moles/Vol] 106 mmol/L Normal 98-110 [facility] Comment on above: Performed By: #### C K, ALCO, CBCDIF, CMP, MG1 ####[place] [phone] CO2 [Moles/Vol] 25 mmol/L Normal 23-32 [facility] Comment on above: Performed By: #### C K, ALCO, CBCDIF, CMP, MG1 ####[place] [phone] Creatinine [Mass/Vol] 0.99 mg/dL Normal 0.70-1.40 [facility] Comment on above: Performed By: #### C K, ALCO, CBCDIF, CMP, MG1 ####[place] [phone] eGFR- Amer. >60 Normal >60 [facility] Comment on above: Performed By: #### C K, ALCO, CBCDIF, CMP, MG1 ####[place] [phone] eGFR-All Other Races >60 Normal >60 [facility] Comment on above: Result Comment: eGFR (Estimated [...] #### C K, ALCO, CBCDIF, CMP, MG1 ####[place] [phone] Glucose [Mass/Vol] 103 mg/dL High 65-100 [facility] Comment on above: Performed By: #### C K, ALCO, CBCDIF, CMP, MG1 ####[place] [phone] Potassium [Moles/Vol] 3.9 mmol/L Normal 3.5-5.0 [facility] Comment on above: Performed By: #### C K, ALCO, CBCDIF, CMP, MG1 ####[place] [phone] Protein [Mass/Vol] 7.1 g/dL Normal 6.0-8.4 [facility] Comment on above: Performed By: #### C K, ALCO, CBCDIF, CMP, MG1 ####[place] [phone] Sodium [Moles/Vol] 141 mmol/L Normal 132-148 [facility] Comment on above: Performed By: #### C K, ALCO, CBCDIF, CMP, MG1 ####[place] [phone] Urea nitrogen [Mass/Vol] 12 mg/dL Normal 8-25 [facility] Comment on above: Performed By: #### C K, ALCO, CBCDIF, CMP, MG1 ####[facility] [place], [place] [phone] ED NOTEon 03-06-2021 ED NOTE HNO ID: [id number] Author: Isabell Olivares RN Service: ? Author Type: Registered Nurse Type: ED Notes Filed: 03/06/2021 9:38 PM Note Text: Report to JSU Reis. [facility] ED NOTE HNO ID: [id number] Author: Isabell Olivares RN Service: ? Author Type: Registered Nurse Type: ED Notes Filed: 03/06/2021 7:16 PM Note Text: Pt up to bedside commode in room with steady gait, pt back to bed, siderails up x 2. [facility] ED NOTE HNO ID: [id number] Author: Isabell Olivares RN Service: ? Author Type: Registered Nurse Type: ED Notes Filed: 03/06/2021 6:32 PM Note Text: Meal tray arrives at the bedside. [facility] ED NOTE HNO ID: [id number] Author: Isabell Olivares RN Service: ? Author Type: Registered Nurse Type: ED Notes Filed: 03/06/2021 6:02 PM Note Text: Pt encouraged to call for dinner tray. Pt reports her headache has improved. [facility] ED NOTE HNO ID: [id number] Author: Isabell Olivares RN Service: ? Author Type: Registered Nurse Type: ED Notes Filed: 03/06/2021 5:18 PM Note Text: Pt states much improvement to her headache, resting in the room with her family, lights dimmed for comfort. [facility] ED NOTE HNO ID: [id number] Author: Isabell Olivares RN Service: ? Author Type: Registered Nurse Type: ED Notes Filed: 03/06/2021 2:48 PM Note Text: Pt reports no improvement in her headache, pt resting with lights off and warm blankets with family at bedside. No new orders at this time. Neurology paged. [facility] ED NOTE HNO ID: [id number] Author: Isabell Olivares RN Service: ? Author Type: Registered Nurse Type: ED Notes Filed: 03/06/2021 2:25 PM Note Text: MRI form faxed to MRI. Pt states she has claustrophobia with MRI, Neurology paged. [facility] ED NOTE HNO ID: [id number] Author: Isabell Olivares RN Service: ? Author Type: Registered Nurse Type: ED Notes Filed: 03/06/2021 2:04 PM Note Text: MRI Screening form given to the patient. [facility] ED NOTE HNO ID: [id number] Author: Isabell Olivares RN Service: ? Author Type: Registered Nurse Type: ED Notes Filed: 03/06/2021 1:56 PM Note Text: Pt assisted onto and off the bedpan. [facility] ED NOTE HNO ID: [id number] Author: Isabell Olivares RN Service: ? Author Type: Registered Nurse Type: ED Notes Filed: 03/06/2021 1:56 PM Note Text: Pt accucheck 100, meal tray at bedside. [facility] ED NOTE HNO ID: [id number] Author: Isabell Olivares RN Service: ? Author Type: Registered Nurse Type: ED Notes Filed: 03/06/2021 1:39 PM Note Text: Neurology at bedside with the patient. [facility] ED NOTE HNO ID: [id number] Author: Isabell Olivares RN Service: ? Author Type: Registered Nurse Type: ED Notes Filed: 03/06/2021 1:26 PM Note Text: Verbal order from Dr. Haile for 25mg PO benadryl [facility] ED NOTE HNO ID: [id number] Author: Isabell Olivares RN Service: ? Author Type: Registered Nurse Type: ED Notes Filed: 03/06/2021 11:20 AM Note Text: Pt resting in bed with seizure pads in place, pt family member sleeping in the bed with the patient, pt family member asked to not be in the bed with the patient for patient safety. [facility] ED NOTE HNO ID: [id number] Author: Jade Forte RN Service: ? Author Type: Registered Nurse Type: ED Notes Filed: 03/06/2021 11:13 AM Note Text: Patient report given to JUS Whyte [facility] ED NOTE HNO ID: [id number] Author: Isabell Olivares RN Service: ? Author Type: Registered Nurse Type: ED Notes Filed: 03/06/2021 11:02 AM Note Text: Assumed care of the patient at this time, received report from JUS Hansen. Plan of Care: - maintain patient comfort, safety and privacy - monitor for changes in condition - bed locked, low position, siderails up - call light within reach [facility] ED NOTE HNO ID: [id number] Author: Jade Forte RN Service: ? Author Type: Registered Nurse Type: ED Notes Filed: 03/06/2021 11:05 AM Note Text: Patient reports continuing to have headache. Spouse also reports had another few second seizure. House paged. [facility] ED NOTE HNO ID: [id number] Author: Jade Forte RN Service: ? Author Type: Registered Nurse Type: ED Notes Filed: 03/06/2021 10:11 AM Note Text: Called lab, breakfast tray ordered [facility] ED NOTE HNO ID: [id number] Author: Jade Forte RN Service: ? Author Type: Registered Nurse Type: ED Notes Filed: 03/06/2021 8:43 AM Note Text: Patient placed on bedpan. Patient and sheets soiled. Patient cleaned, linens changed [facility] ED NOTE HNO ID: [id number] Author: Jade Forte RN Service: ? Author Type: Registered Nurse Type: ED Notes Filed: 03/06/2021 8:31 AM Note Text: Answered patient call light. Patient requesting bedpan. Patient reports patient just had seizure . House paged and returned call. [facility] ED NOTE HNO ID: [id number] Author: Jade Forte RN Service: ? Author Type: Registered Nurse Type: ED Notes Filed: 03/06/2021 7:39 AM Note Text: Patient resting in bed. Declines breakfast at this time. Reports headache and nausea. House paged. [facility] ED NOTE HNO ID: [id number] Author: Jade Forte RN Service: ? Author Type: Registered Nurse Type: ED Notes Filed: 03/06/2021 7:07 AM Note Text: Patient report received from JUS Schuler [facility] ED PROV NOTEon 03-06-2021 ED PROV NOTE HNO ID: [id number] Author: Adeel Mauro MD Service: Hospital Medicine [...] (*) Negative (more content not included)... Normal [facility] Ethanolon 03-06-2021 Ethanol [Mass/Vol] mg/dL Normal <11 [facility] Comment on above: Performed By: #### C K, ALCO, CBCDIF, CMP, MG1 ####[place] [phone] Expedited [id number] 03-06-20 21 SARS-CoV-2 (COVID-19) RNA AZ+probe Ql (Unsp spec) UPPER RESPIRATORY TRACT SWAB Normal [facility] Comment on above: Performed By: #### E XCOVD #### [place] [phone] SARS-CoV-2 (COVID-19) RNA AZ+probe Ql (Unsp spec) Negative for COVID19 (SARS CoV2) by RT-PCR or equivalent method. Normal Negative for COVID19 (SARS CoV2) by RT-PCR or equivalent method. [facility] Comment on above: Result Comment: This test has been authorized by FDA under an Emergency Use Authorization (EUA). Performed By: #### E XCOVD #### [place] [phone] HCG Qual, Urineon 03-06-2021 Beta HCG ( test) Ql (U) Negative Normal Negative [facility] Comment on above: Performed By: #### U HCG ####[place] [phone] HISTORY PHYSICALon 1 HISTORY PHYSICAL HNO ID: [id number] Author: Adonis Mahoney MD Service: General Internal Medicine Author Type: Physician Type: HANDP Filed: 03/06/2021 6:51 AM Note Text: HISTORY AND PHYSICAL EXAMINATION * SERVICE DATE: 03/06/2021 PRIMARY CARE PHYSICIAN: Keli Strickland NP Subjective CHIEF COMPLAINT: Seizures HPI: This is a 31 year old female with a hx of seizures, diabetes, anxiety, and conversion disorder, who reportedly had a seizure at the airport [facility]. She and her boyfriend had just [...] March 06, 2021 TIME: 6:08 AM Normal [facility] Magnesiumon 03-06-2021 Magnesium [Mass/Vol] 2.1 mg/dL Normal 1.7-2.6 [facility] Comment on above: Performed By: #### C K, ALCO, CBCDIF, CMP, MG1 ####[place] [id number] [place], [place] [phone] TSHon 03-06-2021 TSH Qn 3.170 m[IU]/L Normal 0.270-4.200 [facility] Comment on above: Result Comment: If t he patient is , TSH reference range varies by gestational period: First Trimester (weeks 9-12): 0.180-2.990 mcIU/mL Second Trimester: 0.110-3.980 mcIU/mL Third Trimester: 0.480-4.710 mcIU/mL Dawson Mcleod et al. A Practical Approach for the Verifications and Determination of Site- and Trimester-Specific Reference Intervals for Thyroid Function tests in . Thyroid, 2019:29:3:412-420. Jimmie Greenfield et al. 2017 Guidelines of the [place] Thyroid Association for the Diagnosis and Management of Thyroid Disease during and the . Thyroid, 2017:27:3:315-389. Performed By: #### T SH ####[place] [address] Toxicology Screen,Uron 03-06 Amphetamines, Urine Negative Normal Negative [facility] Comment on above: Result Comment: Cuto ff threshold at 1000 ng/mL. Performed By: #### U TOX2, UAWMIC #### [place] [address] Barbiturates, Urine Negative Normal Negative [facility] Comment on above: Result Comment: Cuto ff threshold at 200 ng/mL. Performed By: #### U TOX2, UAWMIC #### [place] [address] Benzodiazepines, Ur Negative Normal Negative [facility] Comment on above: Result Comment: Cuto ff threshold at 200 ng/mL. Performed By: #### U TOX2, UAWMIC #### [place] [address] Cannabinoids, Urine Negative Normal Negative [facility] Comment on above: Result Comment: Cuto ff threshold at 50 ng/mL. Performed By: #### U TOX2, UAWMIC #### [place] [address] Cocaine, Urine Negative Normal Negative [facility] Comment on above: Result Comment: Cuto ff threshold at 300 ng/mL. Performed By: #### U TOX2, UAWMIC #### [place] [address] Ethanol, Urine <11 Normal <11 [facility] Comment on above: Performed By: #### U TOX2, UAWMIC #### [place] [address] Opiates, Urine Negative Normal Negative [facility] Comment on above: Result Comment: Cuto ff threshold at 300 ng/mL. Performed By: #### U TOX2, UAWMIC #### [place] [address] Oxycodone, Urine Negative Normal Negative [facility] Comment on above: Result Comment: Cuto [...] on the same specimen through Client Services ([phone]) if contacted within 48 hours of initial testing. [1]Substance Abuse and Mental Health Services Administration (2012). Clinical Drug Testing in Primary Care Technical Assistance Publication Series 32. Department of Health and Human Services, [place], p.10. Performed By: #### U TOX2, UAWMIC #### [place] [address] Phencyclidine, Urine Negative Normal Negative [facility] Comment on above: Result Comment: Cuto ff threshold at 25 ng/mL. Performed By: #### U TOX2, UAWMIC #### [place] [address] Urinalysis with Microscopico n 03-06-2021 Bacteria Rare Critically abnormal Negative [facility] Comment on above: Performed By: #### U TOX2, UAWMIC #### [place] [address] Bilirubin, Urine Negative Normal Negative [facility] Comment on above: Performed By: #### U TOX2, UAWMIC #### [place] [address] Clarity (U) Clear Normal Clear [facility] Comment on above: Performed By: #### U TOX2, UAWMIC #### [place] [address] Color (U) Colorless Critically abnormal Yellow [facility] Comment on above: Performed By: #### U TOX2, UAWMIC #### [place] [phone] Comments SEE COMMENT Normal [facility] Comment on above: Result Comment: Micr oscopic Examination Performed Performed By: #### U TOX2, UAWMIC #### [place] [phone] Epithelial cells LM Ql (Urine sed) SEE COMMENT Critically abnormal Negative [facility] Comment on above: Result Comment: Rare Squamous Epithelial Cells Performed By: #### U TOX2, UAWMIC #### [place] [phone] Glucose Ql (U) Negative Normal Negative [facility] Comment on above: Performed By: #### U TOX2, UAWMIC #### [place] [phone] Hemoglobin/Blood,Ur Negative Normal Negative [facility] Comment on above: Performed By: #### U TOX2, UAWMIC #### [place] [phone] Ketones Ql (U) Negative Normal Negative [facility] Comment on above: Performed By: #### U TOX2, UAWMIC #### [place] [phone] Leukest Negative Normal Negative [facility] Comment on above: Performed By: #### U TOX2, UAWMIC #### [place] [phone] Nitrite Ql (U) Negative Normal Negative [facility] Comment on above: Performed By: #### U TOX2, UAWMIC #### [place] [phone] pH (U) 7.0 [pH] Normal 5.0-8.0 [facility] Comment on above: Performed By: #### U TOX2, UAWMIC #### [place] [phone] Protein, Urine Negative Normal Negative [facility] Comment on above: Performed By: #### U TOX2, UAWMIC #### [id number] RBC Rare Critically abnormal Negative [facility] Comment on above: Performed By: #### U TOX2, UAWMIC #### [id number] Specific Powers, Ur 1.007 Normal 1.005-1.030 [facility] Comment on above: Performed By: #### U TOX2, UAWMIC #### [place] [id number] Urobilinogen (U) [Mass/Vol] Negative Normal Negative [facility] Comment on above: Performed By: #### U TOX2, UAWMIC #### [place] [id number] WBC Rare Critically abnormal Negative [facility] Comment on above: Performed By: #### U TOX2, UAWMIC #### [id number] Vital Signs Date Time Vital Sign Value Performing Clinician Facility 11-12-2023 14:42-0400 Body height 165.1 cm [facility] 11-12-2023 14:42-0400 Body mass index (BMI) [Ratio] 38.7 kg/m2 [facility] 11-12-2023 14:42-0400 Body temperature 98.4 [degF] [facility] 11-12-2023 14:42-0400 Body weight 105.68 kg [facility] 11-12-2023 14:42-0400 Diastolic blood pressure 90 mm[Hg] [facility] 11-12-2023 14:42-0400 Heart rate 101 /min [facility] 11-12-2023 14:42-0400 Respiratory rate 18 /min [facility] 11-12-2023 14:42-0400 SaO2% (BldA) [Mass fraction] 98 % [facility] 11-12-2023 14:42-0400 Systolic blood pressure 120 mm[Hg] [facility] 10-08-2023 16:13-0400 Body height 165.1 cm [facility] 10-08-2023 16:13-0400 Body mass index (BMI) [Ratio] 39.7 kg/m2 [facility] 10-08-2023 16:13-0400 Body temperature 96.9 [degF] [facility] 10-08-2023 16:13-0400 Body weight 108.4 kg [facility] 10-08-2023 16:13-0400 Diastolic blood pressure 82 mm[Hg] [facility] 10-08-2023 16:13-0400 Heart rate 99 /min [facility] 10-08-2023 16:13-0400 Respiratory rate 16 /min [facility] 10-08-2023 16:13-0400 SaO2% (BldA) [Mass fraction] 97 % [facility] 10-08-2023 16:13-0400 Systolic blood pressure 132 mm[Hg] [facility] 08-27-2023 16:34-0400 Body height 165.1 cm DO Mario Pee Work Phone: [facility] 08-27-2023 16:34-0400 Body mass index (BMI) [Ratio] 39.7 kg/m2 DO Mario Pee Work Phone: [facility] 08-27-2023 16:34-0400 Body temperature 97.9 [degF] DO Mario Pee Work Phone: [facility] 08-27-2023 16:34-0400 Body weight 108.4 kg DO Mario Pee Work Phone: [facility] 08-27-2023 16:34-0400 Diastolic blood pressure 80 mm[Hg] DO Mario Pee Work Phone: [facility] 08-27-2023 16:34-0400 Heart rate 70 /min DO Mario Pee Work Phone: [facility] 08-27-2023 16:34-0400 Respiratory rate 18 /min DO Mario Pee Work Phone: [facility] 08-27-2023 16:34-0400 SaO2% (BldA) [Mass fraction] 98 % DO Mario Pee Work Phone: [facility] 08-27-2023 16:34-0400 Systolic blood pressure 130 mm[Hg] DO Mario Pee Work Phone: [facility] 08-07-2023 10:53-0400 Body height 165.1 cm [employer] PA-C Work Phone: [facility] 08-07-2023 10:53-0400 Body weight 105.23 kg [employer] PA-C Work Phone: [facility] 07-07-2023 10:40-0400 Body temperature 98.2 [degF] DO Mario Pee Work Phone: [facility] 07-07-2023 10:40-0400 Diastolic blood pressure 74 mm[Hg] DO Mario Pee Work Phone: [facility] 07-07-2023 10:40-0400 Heart rate 70 /min DO Mario Pee Work Phone: [facility] 07-07-2023 10:40-0400 Respiratory rate 18 /min DO Mario Pee Work Phone: [facility] 07-07-2023 10:40-0400 SaO2% (BldA) [Mass fraction] 98 % DO Mario Pee Work Phone: [facility] 07-07-2023 10:40-0400 Systolic blood pressure 135 mm[Hg] DO Mario Pee Work Phone: [facility] 06-03-2023 18:00-0500 Diastolic blood pressure 75 mm[Hg] DO Mario Pee Work Phone: [facility] 06-03-2023 18:00-0500 Heart rate 72 /min DO Mario Pee Work Phone: [facility] 06-03-2023 18:00-0500 Respiratory rate 16 /min DO Mario Pee Work Phone: [facility] 06-03-2023 18:00-0500 SaO2% (BldA) [Mass fraction] 98 % DO Mario Pee Work Phone: [facility] 06-03-2023 18:00-0500 Systolic blood pressure 116 mm[Hg] DO Mario Pee Work Phone: [facility] 06-03-2023 13:34-0500 Body height 165.1 cm DO Mario Pee Work Phone: [facility] 06-03-2023 13:34-0500 Body temperature 98.2 [degF] DO Mario Pee Work Phone: [facility] 06-03-2023 13:34-0500 Body weight 103.87 kg DO Mario Pee Work Phone: [facility] 04-01-2023 14:00-0500 Body height 165.1 cm DO Mario Pee Work Phone: [facility] 04-01-2023 14:00-0500 Body weight 103.87 kg DO Mario Pee Work Phone: [facility] 04-01-2023 14:00-0500 Diastolic blood pressure 78 mm[Hg] DO Mario Pee Work Phone: [facility] 04-01-2023 14:00-0500 Systolic blood pressure 118 mm[Hg] DO Mario Pee Work Phone: [facility] 01-29-2023 10:15-0400 Body height 165.1 cm Mario Pee Other [employer] Other 01-29-2023 10:15-0400 Body mass index (BMI) [Ratio] 37.27 kg/m2 Mario Pee Other [employer] Other 01-29-2023 10:15-0400 Body temperature 96.9 [degF] Mario Pee Other [employer] Other 01-29-2023 10:15-0400 Body weight 101.61 kg Mario Pee Other [employer] Other 01-29-2023 10:15-0400 Diastolic blood pressure 70 mm[Hg] Mario Pee Other [employer] Other 01-29-2023 10:15-0400 Respiratory rate 20 /min Mario Pee Other [employer] Other 01-29-2023 10:15-0400 SaO2% (BldA) [Mass fraction] 99 % Mario Pee Other [employer] Other 01-29-2023 10:15-0400 Systolic blood pressure 110 mm[Hg] Mario Pee Other [employer] Other 12-12-2022 15:15-0400 Body height 165.1 cm Mario Pee Other [employer] Other 12-12-2022 15:15-0400 Body mass index (BMI) [Ratio] 37.77 kg/m2 Mario Pee Other [employer] Other 12-12-2022 15:15-0400 Body weight 102.97 kg Mario Pee Other [employer] Other 12-12-2022 15:15-0400 Diastolic blood pressure 60 mm[Hg] Mario Pee Other [employer] Other 12-12-2022 15:15-0400 Respiratory rate 20 /min Mario Pee Other [employer] Other 12-12-2022 15:15-0400 Systolic blood pressure 102 mm[Hg] Mario Pee Other [facility] [employer] Other 11-23-2022 01:18-0400 Diastolic blood pressure 83 mm[Hg] Kaylinn D[facility] 11-23-2022 01:18-0400 Heart rate 64 /min [facility] 11-23-2022 01:18-0400 Mean blood pressure 94 mm[Hg] [facility] 11-23-2022 01:18-0400 Respiratory rate 19 /min [facility] Dok[facility] 11-23-2022 01:18-0400 SaO2% (BldA) [Mass fraction] 97 % [facility] Dok[facility] 11-23-2022 01:18-0400 Systolic blood pressure 117 mm[Hg] [facility] 11-23-2022 01:14-0400 Diastolic blood pressure 85 mm[Hg] [facility] 11-23-2022 01:14-0400 Heart rate 65 /min [facility] Dok[facility] 11-23-2022 01:14-0400 Mean blood pressure 98 mm[Hg] [facility] D[facility] 11-23-2022 01:14-0400 Respiratory rate 18 /min [facility] Dok[facility] 11-23-2022 01:14-0400 SaO2% (BldA) [Mass fraction] 98 % [facility] Dok[facility] 11-23-2022 01:14-0400 Systolic blood pressure 124 mm[Hg] [facility] Dok[facility] 11-23-2022 00:00-0400 Body temperature 98.24 [degF] [facility] Dok[facility] 11-23-2022 00:00-0400 Diastolic blood pressure 63 mm[Hg] [facility] 11-23-2022 00:00-0400 Mean blood pressure 77 mm[Hg] [facility] Dok[facility] 11-23-2022 00:00-0400 SaO2% (BldA) [Mass fraction] 99 % Kaylinn Dokken [facility] 11-23-2022 00:00-0400 Systolic blood pressure 105 mm[Hg] [facility] Dokken [facility] 11-22-2022 22:00-0400 Heart rate 63 /min Kaylinn Dokken [facility] 11-22-2022 20:59-0400 Body temperature 98.06 [degF] Sonam Montoya [facility] 11-22-2022 20:59-0400 Respiratory rate 19 /min Sonam Montoya [facility] 11-14-2022 13:15-0400 Body height 165.1 cm Mario Pee Other [employer] Other 11-14-2022 13:15-0400 Body mass index (BMI) [Ratio] 37.77 kg/m2 Mario Pee Other [employer] Other 11-14-2022 13:15-0400 Body temperature 97.8 [degF] Mario Pee Other [employer] Other 11-14-2022 13:15-0400 Body weight 102.97 kg Mario Pee Other [employer] Other 11-14-2022 13:15-0400 Diastolic blood pressure 76 mm[Hg] Mario Pee Other [employer] Other 11-14-2022 13:15-0400 Respiratory rate 20 /min Mario Pee Other [employer] Other 11-14-2022 13:15-0400 SaO2% (BldA) [Mass fraction] 97 % Mario Pee Other [employer] Other 11-14-2022 13:15-0400 Systolic blood pressure 100 mm[Hg] Mario Pee Other [employer] Other 10-15-2022 14:45-0400 Body height 165.1 cm Mario Pee Other [employer] Other 10-15-2022 14:45-0400 Body mass index (BMI) [Ratio] 38.44 kg/m2 Mario Pee Other [employer] Other 10-15-2022 14:45-0400 Body temperature 96 [degF] Mario Pee Other [employer] Other 10-15-2022 14:45-0400 Body weight 104.78 kg Mario Pee Other [employer] Other 10-15-2022 14:45-0400 Diastolic blood pressure 78 mm[Hg] Mario Pee Other [employer] Other 10-15-2022 14:45-0400 Respiratory rate 20 /min Mario Pee Other [employer] Other 10-15-2022 14:45-0400 SaO2% (BldA) [Mass fraction] 97 % Mario Pee Other [employer] Other 10-15-2022 14:45-0400 Systolic blood pressure 122 mm[Hg] Mario Pee Other [employer] Other 09-17-2022 13:00-0400 Body height 165.1 cm Mario Pee Other [employer] Other 09-17-2022 13:00-0400 Body mass index (BMI) [Ratio] 39.27 kg/m2 Mario Pee Other [employer] Other 09-17-2022 13:00-0400 Body temperature 96.9 [degF] Mario Pee Other [employer] Other 09-17-2022 13:00-0400 Body weight 107.05 kg Mario Pee Other [employer] Other 09-17-2022 13:00-0400 Diastolic blood pressure 78 mm[Hg] Mario Pee Other [employer] Other 09-17-2022 13:00-0400 Respiratory rate 20 /min Mario Pee Other [employer] Other 09-17-2022 13:00-0400 SaO2% (BldA) [Mass fraction] 96 % Mario Pee Other [employer] Other 09-17-2022 13:00-0400 Systolic blood pressure 124 mm[Hg] Mario Pee Other [employer] Other 05-02-2022 20:23-0500 Body temperature 98 [degF] DO Mario Pee Work Phone: [facility] 05-02-2022 20:23-0500 Diastolic blood pressure 78 mm[Hg] DO Mario Pee Work Phone: [facility] 05-02-2022 20:23-0500 Heart rate 104 /min DO Mario Pee Work Phone: [facility] 05-02-2022 20:23-0500 Respiratory rate 18 /min DO Mario Pee Work Phone: [facility] 05-02-2022 20:23-0500 SaO2% (BldA) [Mass fraction] 96 % DO Mario Pee Work Phone: [facility] 05-02-2022 20:23-0500 Systolic blood pressure 125 mm[Hg] DO Mario Pee Work Phone: [facility] 05-02-2022 16:20-0500 Inhaled oxygen flow rate 3 L/min DO Mario Pee Work Phone: [facility] 05-02-2022 06:52-0500 Body height 165.1 cm DO Mario Pee Work Phone: [facility] 05-02-2022 06:52-0500 Body mass index (BMI) [Ratio] 37.9 kg/m2 DO Mario Pee Work Phone: [facility] 05-02-2022 06:52-0500 Body weight 103.4 kg DO Mario Pee Work Phone: [facility] 04-24-2022 18:09-0500 Body height 165.1 cm DO Mario Pee Work Phone: [facility] 04-24-2022 18:09-0500 Body temperature 99.1 [degF] DO Mario Pee Work Phone: [facility] 04-24-2022 18:09-0500 Body weight 104.2 kg DO Mario Pee Work Phone: [facility] 04-24-2022 18:09-0500 Diastolic blood pressure 88 mm[Hg] DO Mario Pee Work Phone: [facility] 04-24-2022 18:09-0500 Heart rate 99 /min DO Mario Pee Work Phone: [facility] 04-24-2022 18:09-0500 Respiratory rate 19 /min DO Mario Pee Work Phone: [facility] 04-24-2022 18:09-0500 SaO2% (BldA) [Mass fraction] 96 % DO Mario Pee Work Phone: [facility] 04-24-2022 18:09-0500 Systolic blood pressure 124 mm[Hg] DO Mario Pee Work Phone: [facility] 04-17-2022 15:00-0500 Body height 165.1 cm Mario Pee Other [employer] Other 04-17-2022 15:00-0500 Body mass index (BMI) [Ratio] 38.77 kg/m2 Mario Pee Other [employer] Other 04-17-2022 15:00-0500 Body temperature 97.2 [degF] Mario Pee Other [employer] Other 04-17-2022 15:00-0500 Body weight 105.69 kg Mario Pee Other [employer] Other 04-17-2022 15:00-0500 Diastolic blood pressure 82 mm[Hg] Mario Pee Other [employer] Other 04-17-2022 15:00-0500 Respiratory rate 20 /min Mario Pee Other [employer] Other 04-17-2022 15:00-0500 SaO2% (BldA) [Mass fraction] 98 % Mario Pee Other [employer] Other 04-17-2022 15:00-0500 Systolic blood pressure 124 mm[Hg] Mario Pee Other [employer] Other 04-10-2022 08:44-0500 Body height 165.1 cm DO Mario Pee Work Phone: [facility] 04-10-2022 08:44-0500 Body temperature 98.3 [degF] DO Mario Pee Work Phone: [facility] 04-10-2022 08:44-0500 Body weight 105 kg DO Mario Pee Work Phone: [facility] 04-10-2022 08:44-0500 Diastolic blood pressure 82 mm[Hg] DO Mario Pee Work Phone: [facility] 04-10-2022 08:44-0500 Heart rate 80 /min DO Mario Pee Work Phone: [facility] 04-10-2022 08:44-0500 Respiratory rate 16 /min DO Mario Pee Work Phone: [facility] 04-10-2022 08:44-0500 SaO2% (BldA) [Mass fraction] 98 % DO Mario Pee Work Phone: [facility] 04-10-2022 08:44-0500 Systolic blood pressure 125 mm[Hg] DO Mario Pee Work Phone: [facility] 12-12-2021 14:45-0400 Body height 165.1 cm Mario Pee Other [employer] [facility] [employer] Other 12-12-2021 14:45-0400 Body mass index (BMI) [Ratio] 37.27 kg/m2 Mario Pee Other [employer] Other 12-12-2021 14:45-0400 Body temperature 96.9 [degF] Mario Pee Other [employer] Other 12-12-2021 14:45-0400 Body weight 101.61 kg Mario Pee Other [employer] Other 12-12-2021 14:45-0400 Diastolic blood pressure 80 mm[Hg] Mario Pee Other [employer] Other 12-12-2021 14:45-0400 Respiratory rate 20 /min Mario Pee Other [employer] Other 12-12-2021 14:45-0400 SaO2% (BldA) [Mass fraction] 98 % Mario Pee Other [employer] Other 12-12-2021 14:45-0400 Systolic blood pressure 124 mm[Hg] Mario Pee Other [employer] Other 10-12-2021 09:30-0400 Body height 165.1 cm Mario Pee Other [employer] Other 10-12-2021 09:30-0400 Body mass index (BMI) [Ratio] 37.27 kg/m2 Mario Pee Other [employer] Other 10-12-2021 09:30-0400 Body temperature 98.3 [degF] Mario Pee Other [employer] Other 10-12-2021 09:30-0400 Body weight 101.61 kg Mario Pee Other [employer] Other 10-12-2021 09:30-0400 Diastolic blood pressure 80 mm[Hg] Mario Pee Other [employer] Other 10-12-2021 09:30-0400 Respiratory rate 18 /min Mario Pee Other [employer] Other 10-12-2021 09:30-0400 Systolic blood pressure 110 mm[Hg] Mario Pee Other [employer] Other 09-27-2021 17:00-0400 Body height 165.1 cm Mario Pee Other [employer] Other 09-27-2021 17:00-0400 Body mass index (BMI) [Ratio] 38.1 kg/m2 Mario Pee Other [employer] Other 09-27-2021 17:00-0400 Body temperature 97.6 [degF] Mario Pee Other [employer] Other 09-27-2021 17:00-0400 Body weight 103.87 kg Mario Pee Other [employer] Other 09-27-2021 17:00-0400 Diastolic blood pressure 62 mm[Hg] Mario Pee Other [employer] Other 09-27-2021 17:00-0400 Respiratory rate 20 /min Mario Pee Other [employer] Other 09-27-2021 17:00-0400 SaO2% (BldA) [Mass fraction] 97 % Mario Pee Other [employer] Other 09-27-2021 17:00-0400 Systolic blood pressure 122 mm[Hg] Mario Pee Other [employer] Other 05-30-2021 18:15-0500 Body height 165.1 cm Mario Pee Other [employer] Other 05-30-2021 18:15-0500 Body mass index (BMI) [Ratio] 37.6 kg/m2 Mario Pee Other [employer] Other 05-30-2021 18:15-0500 Body temperature 97.3 [degF] Mario Pee Other [employer] Other 05-30-2021 18:15-0500 Body weight 102.51 kg Mario Pee Other [employer] Other 05-30-2021 18:15-0500 Diastolic blood pressure 82 mm[Hg] Mario Pee Other [employer] Other 05-30-2021 18:15-0500 Respiratory rate 20 /min Mario Pee Other [employer] Other 05-30-2021 18:15-0500 SaO2% (BldA) [Mass fraction] 97 % Mario Pee Other [employer] Other 05-30-2021 18:15-0500 Systolic blood pressure 122 mm[Hg] Mario Pee Other [employer] Other 05-02-2021 18:30-0500 Body height 165.1 cm Mario Pee Other [employer] Other 05-02-2021 18:30-0500 Body mass index (BMI) [Ratio] 36.77 kg/m2 Mario Pee Other [employer] Other 05-02-2021 18:30-0500 Body temperature 97.6 [degF] Mario Pee Other [employer] Other 05-02-2021 18:30-0500 Body weight 100.25 kg Mario Pee Other [employer] Other 05-02-2021 18:30-0500 Diastolic blood pressure 70 mm[Hg] Mario Pee Other [employer] Other 05-02-2021 18:30-0500 Respiratory rate 20 /min Mario Pee Other [employer] Other 05-02-2021 18:30-0500 SaO2% (BldA) [Mass fraction] 96 % Mario Pee Other [employer] Other 05-02-2021 18:30-0500 Systolic blood pressure 118 mm[Hg] Mario Pee Other [employer] Other Encounters Encounter Date Encounter Type Care Provider Facility Start: 11-12-2023 End: 11-12-2023 [facility] Work Phone: Start: 11-12-2023 End: 11-12-2023 Patient encounter procedure [facility] Work Phone: Start: 10-08-2023 End: 10-08-2023 [facility] Work Phone: Start: 10-08-2023 End: 10-08-2023 Patient encounter procedure [facility] Work Phone: Start: 10-08-2023 End: 10-08-2023 ambulatory VASU WILCOX Not Available Start: 09-12-2023 Telephone encounter Franchesca MONTEZC Work Phone: [facility] Start: 09-11-2023 Telephone encounter Lou Miller RN Work Phone: Mammography Comment on above: Results Start: 09-08-2023 End: 09-08-2023 ambulatory FRANCHESCA CASTREJON Facility:[facility] Start: 09-08-2023 End: 09-08-2023 Subsequent hospital visit by physician Procedure Mammo [facility]ammography Comment on above: Fibrocystic breast c hanges of both breasts [N60.11, N60.12] Start: 09-02-2023 Non-patient / Non-visit [facility] Work Phone: Start: 08-27-2023 End: 08-27-2023 ambulatory DO Mario M. Pee Work Phone: [facility] Work Phone: Start: 08-27-2023 End: 08-27-2023 Patient encounter procedure DO Mario Pee Work Phone: [facility] Work Phone: Start: 08-13-2023 Non-patient / Non-visit DO Set h Pee Work Phone: [facility] Work Phone: Start: 08-11-2023 Telephone encounter Franchesca lamas PA-C Work Phone: [facility] Start: 08-07-2023 End: 08-08-2023 ambulatory KELI STRICKLAND Facility:[facility] Start: 08-07-2023 End: 08-07-2023 Subsequent hospital visit by physician [facility]ammo [facility] Mammography Comment on above: Fibrocystic breast c hanges of both breasts [N60.11, N60.12] Start: 08-07-2023 End: 08-07-2023 Patient encounter procedure Annamerica Dagoberto Man PA-C Work Phone: [facility] Comment on above: Mastodynia (Primary Dx); Fibrocystic breast changes of both breasts; Family history of breast cancer; Dense breasts; Nipple discharge Start: 08-06-2023 Orders Only Franchesca peterson PA-C Work Phone: [facility] Comment on above: Disorder of breast ( Primary Dx) Start: 07-30-2023 Telephone encounter Franchesca lamas PA-C Work Phone: [facility] Start: 07-25-2023 Non-patient / Non-visit DO Set h Pee Work Phone: [facility] Work Phone: Start: 07-14-2023 End: 07-14-2023 ambulatory LUCERO H ITZKOWITZ Not Available Start: 07-07-2023 Non-patient / Non-visit DO Set h Pee Work Phone: [facility] Work Phone: Start: 07-07-2023 End: 07-08-2023 ambulatory Lucero Itzkowitz Facility:[facility] Start: 07-07-2023 End: 07-07-2023 Admission to same day surgery center DO Mario Pee Work Phone: [facility] Start: 07-07-2023 End: 07-07-2023 ambulatory DO Mario M. Pee Work Phone: [facility] Work Phone: Start: 07-02-2023 End: 07-02-2023 ambulatory LUCERO H ITZKOWITZ Not Available Start: 07-01-2023 Non-patient / Non-visit DO Set h Pee Work Phone: [facility] Work Phone: Start: 06-30-2023 End: 06-30-2023 ambulatory LUCERO BELLE Not Available Start: 06-30-2023 Non-patient / Non-visit DO Set h Pee Work Phone: [facility] Work Phone: Start: 06-25-2023 End: 06-25-2023 ambulatory RELL GARCIA Not Available Start: 06-18-2023 End: 06-18-2023 ambulatory RELL GARCIA Not Available Start: 06-06-2023 Non-patient / Non-visit DO Set h Pee Work Phone: [facility] Work Phone: Start: 06-03-2023 End: 06-03-2023 Emergency department patient visit Mario M. Pee Facility:[facility] Start: 06-03-2023 End: 06-03-2023 Emergency department patient visit DO Mario Pee Work Phone: [facility] Work Phone: Start: 05-07-2023 End: 05-07-2023 ambulatory Mario Pee Other [facility] [employer] Other Start: 05-07-2023 Telephone encounter Mario Pee [facility] Start: 04-01-2023 End: 04-01-2023 Patient encounter procedure DO Mario Pee Work Phone: [facility] Work Phone: Start: 03-21-2023 End: 03-21-2023 ambulatory Mario Pee Other [facility] [employer] Other Start: 03-21-2023 Telephone encounter Mario Pee [facility] Start: 02-13-2023 End: 02-13-2023 ambulatory Mario Pee Other [employer] Other Start: 02-13-2023 Telephone encounter Mario Pee [facility] Start: 01-29-2023 End: 01-29-2023 ambulatory Mario Pee Other [employer] Other Start: 01-29-2023 Office outpatient vi sit 15 minutes Mario Pee [facility] Start: 01-21-2023 End: 01-21-2023 ambulatory Mario Pee Other [employer] Other Start: 01-21-2023 Telephone encounter Mario Pee [facility] Start: 01-01-2023 End: 01-02-2023 ambulatory Erin Chavez Facility:[facility] Start: 01-01-2023 End: 01-01-2023 Patient encounter procedure Erin Chavez [facility] Start: 12-20-2022 End: 12-20-2022 ambulatory Mario Pee Other [employer] Other Start: 12-20-2022 Telephone encounter Mario Pee [facility] Start: 12-12-2022 End: 12-12-2022 ambulatory Mario Pee Other [employer] Other Start: 12-12-2022 Office outpatient vi sit 15 minutes Mario Pee [facility] Start: 11-22-2022 End: 11-23-2022 Emergency department patient visit DO Sonam Montoya Facility:[facility] Start: 11-22-2022 End: 11-23-2022 Emergency department patient visit Sonam Montoya [facility] Start: 11-20-2022 End: 11-20-2022 ambulatory Mario Pee Other [employer] Other Start: 11-20-2022 Telephone encounter Mario Pee [facility] Start: 11-14-2022 End: 11-14-2022 ambulatory Mario Pee Other [employer] Other Start: 11-14-2022 Office outpatient vi sit 15 minutes Mario Pee [facility] Start: 10-15-2022 End: 10-15-2022 ambulatory Mario Pee Other [employer] Other Start: 10-15-2022 Office outpatient vi sit 25 minutes Mario Pee [facility] Start: 10-09-2022 End: 10-09-2022 ambulatory Mario Pee Other [employer] Other Start: 10-09-2022 Telephone encounter Mario Pee [facility] Start: 09-17-2022 End: 09-17-2022 ambulatory Mario Pee Other [employer] Other Start: 09-17-2022 Office outpatient vi sit 15 minutes Mario Pee [facility] Start: 09-17-2022 Telephone encounter Mario Pee [facility] Start: 08-13-2022 End: 08-14-[address] MARIO Cullen PEE Facility:H1 Start: 08-12-2022 End: 08-13-[address] MARIO Cullen PEE Facility:H1 Start: 08-09-2022 End: 08-09-2022 ambulatory Mario Pee Other [facility] Other Start: 08-09-2022 Telephone encounter Mario Pee [facility] Start: 07-08-2022 End: 07-08-2022 ambulatory Vi Benites Other [facility] Other Start: 07-08-2022 Telephone encounter Vi Mackwood [facility] Start: 06-17-2022 End: 06-17-2022 ambulatory Mario Pee Other [facility] Other Start: 06-17-2022 Telephone encounter Mario Pee [facility] Start: 06-14-2022 End: 06-14-2022 ambulatory DO Mario M. Pee Work Phone: [facility] Work Phone: Start: 06-14-2022 End: 06-14-2022 Departed Referred DO Mario Pee Work Phone: [facility] [place] Work Phone: Start: 06-07-2022 End: 06-07-2022 ambulatory Mario Pee Other [facility] Other Start: 06-07-2022 Telephone encounter Mario Pee [facility] Start: 05-09-2022 End: 05-09-2022 ambulatory Mario Pee Other [facility] Other Start: 05-09-2022 Telephone encounter Mario Pee [facility] Start: 05-06-2022 End: 05-06-2022 ambulatory Mario Pee Other [facility] Other Start: 05-06-2022 Telephone encounter Mario Pee [facility] Start: 05-02-2022 End: 05-02-2022 Admission to same day surgery center DO Mario Pee Work Phone: [facility] [place] Start: 05-02-2022 End: 05-02-2022 ambulatory DO Mario M. Pee Work Phone: [facility] Work Phone: Start: 04-25-2022 Telephone encounter Mario Pee [facility] Start: 04-25-2022 End: 04-25-2022 Departed Referred DO Mario Pee Work Phone: [facility] [place] Start: 04-25-2022 End: 04-25-2022 ambulatory DO Mario M. Pee Work Phone: [facility] Other Start: 04-24-2022 End: 04-24-2022 Emergency department patient visit DO Mario Pee Work Phone: [facility] Work Phone: Start: 04-23-2022 End: 04-23-2022 Patient encounter procedure DO Mario Pee Work Phone: [facility] Work Phone: Start: 04-17-2022 End: 04-17-2022 ambulatory Mario Pee Other [facility] Other Start: 04-17-2022 Office outpatient vi sit 15 minutes Mario Pee [facility] Start: 04-17-2022 Telephone encounter Mario Pee [facility] Start: 04-16-2022 End: 04-16-2022 ambulatory Mario Pee Other [facility] Other Start: 04-16-2022 Telephone encounter Mraio Pee [facility] Start: 04-10-2022 End: 04-10-2022 ambulatory DO Mario M. Pee Work Phone: [facility] Work Phone: Start: 04-10-2022 End: 04-10-2022 Patient encounter procedure DO Mario Pee Work Phone: [facility] Start: 04-09-2022 End: 04-09-2022 ambulatory Mario Pee Other [facility] Other Start: 04-09-2022 Telephone encounter Mario Pee [facility] Start: 04-08-2022 End: 04-08-2022 ambulatory Mario Pee Other [facility] Other Start: 04-08-2022 Telephone encounter Mario Pee [facility] Start: 03-28-2022 End: 03-30-[address] MARIO Cullen PEE Facility:[facility]1 Start: 03-06-2022 End: 03-06-2022 ambulatory Mario Pee Other [facility] Other Start: 03-06-2022 Telephone encounter Mario Pee [facility] Start: 02-10-2022 End: 02-10-[address] MARIO Cullen PEE Facility:H1 Start: 02-04-2022 End: 02-04-2022 ambulatory Mario Pee Other [facility] Other Start: 02-04-2022 Telephone encounter Mario Pee [facility] Start: 01-29-2022 End: 01-29-2022 ambulatory Mario Pee Other [facility] Other Start: 01-29-2022 Telephone encounter Mario Pee [facility] Start: 01-28-2022 End: 01-28-[address] MARIO Cullen PEE Facility:H1 Start: 12-25-2021 End: 12-25-2021 ambulatory Mario Pee Other [facility] Other Start: 12-25-2021 Telephone encounter Mario Pee [facility] Start: 12-12-2021 End: 12-12-2021 ambulatory Mario Pee Other [facility] Other Start: 12-12-2021 Office outpatient vi sit 15 minutes Mario Pee [facility] Start: 11-26-2021 End: 11-26-2021 ambulatory Mario Pee Other [facility] Other Start: 11-26-2021 Telephone encounter Mario Pee [facility] Start: 11-21-2021 End: 11-21-2021 ambulatory Mario Pee Other [facility] Other Start: 11-21-2021 Telephone encounter Mario Pee [facility] Start: 11-05-2021 End: 11-05-2021 ambulatory Mario Pee Other [facility] Other Start: 11-05-2021 Telephone encounter Mario Pee [facility] Start: 10-29-2021 End: 10-29-[address] MARTIN M PEE Facility:H1 Start: 10-23-2021 End: 10-23-2021 ambulatory Mario Pee Other [facility] Other Start: 10-23-2021 Telephone encounter Mario Pee [facility] Start: 10-19-2021 End: 10-19-2021 ambulatory Mario Pee Other [facility] Other Start: 10-19-2021 Telephone encounter Mario Pee [facility] Start: 10-12-2021 End: 10-12-2021 ambulatory Mario Pee Other [facility] Other Start: 10-12-2021 Office outpatient vi sit 15 minutes Mario Pee [facility] Start: 10-12-2021 Telephone encounter Mario Pee [facility] Start: 10-01-2021 End: 10-01-2021 ambulatory Mario Pee Other [facility] Other Start: 10-01-2021 Telephone encounter Mario Pee [facility] Start: 09-27-2021 End: 09-27-2021 ambulatory Mario Pee Other [facility] Other Start: 09-27-2021 Office outpatient vi sit 15 minutes Mario Pee [facility] Start: 09-18-2021 End: 09-18-2021 ambulatory Mario Pee Other [facility] Other Start: 09-18-2021 Telephone encounter Mario Pee [facility] Start: 09-10-2021 End: 09-10-2021 ambulatory Mario Pee Other [facility] Other Start: 09-10-2021 Telephone encounter Mario Pee [facility] Start: 09-05-2021 End: 09-05-2021 Patient encounter procedure Erin Chavez [facility] Start: 08-13-2021 End: 08-13-2021 ambulatory Mario Pee Other [facility] Other Start: 08-13-2021 Telephone encounter Mario Pee [facility] Start: 08-01-2021 End: 08-01-2021 ambulatory Mario Pee Other [facility] Other Start: 08-01-2021 Telephone encounter Mario Pee [facility] Start: 07-06-2021 End: 07-06-2021 ambulatory Vi [place] Other [facility] Other Start: 07-06-2021 Telephone encounter Vi Easterwood [facility] Start: 06-18-2021 End: 06-18-2021 ambulatory Mario Pee Other [facility] Other Start: 06-18-2021 Telephone encounter Mario Pee [facility] Start: 06-08-2021 End: 06-08-2021 ambulatory Mario Pee Other [facility] Other Start: 06-08-2021 Telephone encounter Mario Pee [facility] Start: 05-30-2021 End: 05-30-2021 ambulatory Mario Pee Other [facility] Other Start: 05-30-2021 Office outpatient vi sit 15 minutes Mario Pee [facility] Start: 05-21-2021 End: 05-21-2021 ambulatory Mario Pee Other [facility] Other Start: 05-21-2021 Telephone encounter Mario Pee [facility] Start: 05-09-2021 End: 05-09-2021 ambulatory Mario Pee Other [facility] Other Start: 05-09-2021 Telephone encounter Mario Pee [facility] Start: 05-08-2021 End: 05-08-2021 ambulatory Mario Pee Other [facility] Other Start: 05-08-2021 Telephone encounter Mario Pee [facility] Start: 05-02-2021 End: 05-02-2021 ambulatory Mario Pee Other [facility] Other Start: 05-02-2021 Office outpatient vi sit 15 minutes Mario Epe [facility] Procedures Date Procedure Procedure Detail Performing Clinician Start: 09-08-2023 Bx breast w/device 1 st lesion ultrasound guid Franchesca Man PA-C Work Phone: Start: 09-08-2023 Digital breast tomos ynthesis unilateral Franchesca Man PA-C Work Phone: Start: 09-02-2023 Cortisol total Comment on above: Please Note: The ref erence interval and flagging for this test is for an AM collection. If this is a PM collection please use: Cortisol PM: 2.3-11.9Performed at: [facility] [id number] [place] [id number] Director: Joby Hackett PhD, Phone: [phone] Start: 08-07-2023 Us breast uni real t garfield with image limited Franchesca Man PA-C Work Phone: Start: 07-07-2023 Mammography of right breast DO Mario Pee Work Phone: Start: 07-07-2023 Core needle biopsy o f breast using ultrasound guidance DO Mario Pee Work Phone: Start: 06-03-2023 CT angiography of thorax DO Mario Pee Work Phone: Start: 06-14-2022 Urine culture DO Mario R uggles Work Phone: Start: 05-02-2022 Total hysterectomy v ia vaginal approach DO Mario Pee Work Phone: Start: 04-23-2022 SARS Antigen (LFIA) DO Mario Glasgow Work Phone: Start: 04-10-2022 Urine culture DO Mario velasco Work Phone: Start: 06-19-2018 Cystoscopic removal of [...] of urethral stricture Erin Lue H/O: hysterectomy Mariosimi Dawn es Other Nephrostomy tube Erin Lue nephrostomy tube Erin Lue nephrostomy tube wit h last preg Erin Lue Other bilateral liga tion and division of fallopian tubes Erin Lue Plan of Treatment Date Care Activity Detail Author Start: 12-21-2023 Influenza vaccination Influenz a Vaccine (Season Ended) [facility] Start: 09-16-2023 End: 09-16-2023 Patient encounter procedure 09/16/2023 9:00 AM EDT Office Visit [place] [id number] Jackie Sutton MD [address] [place] [address] [facility] Consult [facility] Comment on above: New Consult Start: 09-08-2023 End: 09-08-2023 Patient encounter procedure 09/08/2023 2:00 PM EDT Appointment Mammography [id number] [address] RIGHT BREAST ULTRASOUND GUIDED CORE BIOPSY Mammography Comment on above: RIGHT BREAST ULTRASO UND GUIDED CORE BIOPSY Start: 08-07-2023 End: 11-06-2023 Thyrotropin [Units/volume] in Serum or Plasma THYROID STIMULATING HORMONE Lab Routine Nipple discharge Expected: 08/07/2023, Expires: 11/06/2023 [facility] Work Phone: Comment on above: Expected: 08/07/2023 , Expires: 11/06/2023 Start: 04-21-2023 Behavioral Health Screening Behavioral Health Screening [facility] Start: 12-20-2022 Covid-19 Vaccine ( season) Covid-19 Vacc[address] () [facility] Start: 05-02-2022 [facility] Start: 04-25-2022 Total hysterectomy v ia vaginal approach OR Vag Hyster Lap Assist TLH/LAVH (Not Applicable) [facility] Start: 04-24-2022 Blood chemistry [facility] Start: 04-24-2022 Hepatic function panel [facility] Start: 04-24-2022 Lipase measurement [facility] Start: 04-24-2022 [facility] Start: 2019 Screening for malign ant neoplasm of cervix HPV Testing [facility] Start: 02-06-2015 Screening for malign ant neoplasm of cervix Pap Testing [facility] Start: 04-15-2014 Hepatitis B Vaccine (3 of 3 - 19+ 3-dose series) Hepatitis B Vaccine (3 of 3 - 19+ 3-dose series) [facility] Start: 02-19-2008 Hepatitis B Vaccine (1 of 3 - 19+ 3-dose series) Hepatitis B Vaccine (1 of 3 - 19+ 3-dose series) [facility] Start: 02-19-2008 Urine microalbumin profile DTaP,Tdap,Td Vaccine (1 - Tdap) [facility] Start: 2007 Hepatitis C screening Hepatitis C Sc susan [facility] Start: 2007 HIV screening HIV Screening [facility] Bacteria identified in Urine by Culture [facility] Bacteria identified in Urine by Culture [facility] End: 09-04-2024 MG Breast - bilateral Diagnostic SAJI DIAGNOSTIC BILATERAL Radiology Routine Disorder of breast 1 Occurrences starting 08/06/2023 until 09/04/2024 [facility] Work Phone: Comment on above: 1 Occurrences starti ng 08/06/2023 until 09/04/2024 Patient Education Seizures, Adult ED [facility] Work Phone: Patient referral [facility] Work Phone: SURGICAL PATHOLOGY [facility] Work Phone: Comment on above: Release Upon Orderin g for 1 Occurrences starting 09/08/2023, 1 completed [facility] Immunizations Immunization Date Immunization Notes Care Provider Tiffany workman 2014 influenza virus vaccine, unspecified formulation Franchesca Man PA-C Work Phone: [facility] NEGATED: Highlighted row has not occurred!05-16-2021 SARS-CoV-2 (COVID-19) Ad26 vaccine, recombinant Erin Scott [facility] Payers Date Payer Category Payer Self-pay [id number] 2022 Medicaid [employer] [id number] 2022-Present [phone] [address] [place] [address] Medicaid [id number] 1989 Unknown [id number] 1989 Unknown [id number] [id number] 1989 Unknown [id number] 2.16.840.1.872710.3.579.2.593 1989 Unknown [id number] 2.16.840.1.338403.3.579.2.593 1989 Unknown [id number] 2.16.840.1.564313.3.579.2.593 1989 Unknown [id number] 2.16.840.1.681937.3.579.2.593 1989 Unknown [id number] 2.16.840.1.439106.3.579.2.593 1989 Unknown [id number] 2.16.840.1.654154.3.579.2.727 1989 Unknown [id number] 2.16.840.1.764249.3.579.2.727 1989 Unknown [id number] 2.16.840.1.932757.3.579.2.1259 1989 Unknown [id number] 2.16.840.1.295061.3.579.2.1259 1989 Unknown [id number] 2.16.840.1.697336.3.579.2.1259 1989 Unknown [id number] 2.16.840.1.829216.3.579.2.1259 1989 Unknown [id number] 2.16.840.1.329639.3.579.2.1259 1989 Unknown [id number] 2.16.840.1.982637.3.579.2.1259 1989 Unknown [id number] 2.16.840.1.665937.3.579.2.1259 1959 Medicaid [id number] 1959 Unknown [id number] [id number] Unknown Regular Auto/Liability [id number] Unknown [id number] [id number] Unknown [id number] [id number] Social History Date Type Detail Facility Start: 05-16-2021 End: 06-03-2023 Tobacco smoking status Never smoked tobacco (finding) [facility] [employer] Other Tobacco smoking status Never [facility] Start: 01-13-2023 End: 08-07-2023 Sex Assigned At Female [facility] [employer] Other Start: 1990 Sex Assigned At Female [facility] Tobacco smoking status LAIS Tobacco smoking consumption unknown [facility] Start: 01-13-2023 End: 08-07-2023 History of Social function [facility] Start: 1989 Sex Assigned At Not on file [facility] NEGATED: Highlighted row [facility] Medical Equipment Procedure Code Equipment Code Equipment Origin al Text Equipment Identifier Dates Ultrasoujnd Clip [id number] Start: 09-08-2023 Comment on above: Description: Hydroma rk coil Goals Date Patient Goal Desired Activity /State Functional Status Date Assessment Result Facility 11-22-2022 Functional Status N/A [facility] Clinical Notes 03-06-2021 to 09-12-2023 Telephone Encounter - Franchesca Man PA-C - 09/12/2023 10:09 AM EDTTelephone Encounter - Franchesca Man PA-C - 09/12/2023 10:09 AM Marilyn Patel RT(Jd) - 08/07/2023 11:15 AM EDT Note Date & Type Note Facility 09-12-2023 Telephone encounter Note Spoke to patient and relayed results from biopsy (benign FA). We discussed that because the FA is 2cm in size and bothersome it is reasonable to see a breast surgeon to discuss the possibility of excision. She is agreeable and voices understanding. Consult placed. [facility] 09-12-2023 Miscellaneous Notes Spoke to patient and relayed results from biopsy (benign FA). We discussed that because the FA is 2cm in size and bothersome it is reasonable to see a breast surgeon to discuss the possibility of excision. She is agreeable and voices understanding. Consult placed. documented in this encounter [facility] 09-11-2023 Telephone encounter Note Called pt to discuss biopsy result and recommendations. No answer, will try back tomorrow morning. [facility] 09-11-2023 Miscellaneous Notes Called pt to discuss biopsy result and recommendations. No answer, will try back tomorrow morning. documented in this encounter 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 Almanzar. Patient will call back to assist with surgical consult appt. Dr. Almanzar is aware. 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 Patient will call back to assist with surgical consult appt. Dr. Almanzar is aware. documented in this encounter [facility] 09-08-2023 Instructions Formatting of th is note might be different from the original. AMBULATORY PATIENT EDUCATION RADIOLOGY TOPIC: Pre- Procedure Teaching:Logistics / Protocols / Complication Prevention Post- Procedure Teaching: Symptom Management / Wound Care READINESS TO LEARN COGNITIVE ABILITY: Alert and oriented MOTIVATION TO LEARN: Interested FAMILY SUPPORT: Unable to assess - Family not present INSTRUCTION PROVIDED TO: Patient PATIENT LEARNS BEST BY: Individual Instruction Written Instruction - Hand-outs Verbal Instruction FACTORS AFFECTING LEARNING: None PHYSICAL LIMITATIONS AFFECTING LEARNING: None LEARNING RESPONSE Radiology Procedures Ultrasound Breast Clip Placement and Ultrasound Guided Breast Biopsy METHOD OF INSTRUCTION: Individual instruction Written instruction - handouts Verbal instruction PATIENT / FAMILY RESPONSE: Performs skill independently: Wound care FOLLOW-UP PLAN: Follow up phone call. SUPPLEMENTAL MATERIAL: Homegoing instructions REFERRAL (RECOMMENDATION): None [facility] 09-08-2023 Miscellaneous Notes AMBULATORY PATIENT EDUCATION RADIOLOGY TOPIC: Pre- Procedure Teaching:Logistics / Protocols / Complication Prevention Post- Procedure Teaching: Symptom Management / Wound Care READINESS TO LEARN COGNITIVE ABILITY: Alert and oriented MOTIVATION TO LEARN: Interested FAMILY SUPPORT: Unable to assess - Family not present INSTRUCTION PROVIDED TO: Patient PATIENT LEARNS BEST BY: Individual Instruction Written Instruction - Hand-outs Verbal Instruction FACTORS AFFECTING LEARNING: None PHYSICAL LIMITATIONS AFFECTING LEARNING: None LEARNING RESPONSE Radiology Procedures Ultrasound Breast Clip Placement and Ultrasound Guided Breast Biopsy METHOD OF INSTRUCTION: Individual instruction Written instruction - handouts Verbal instruction PATIENT / FAMILY RESPONSE: Performs skill independently: Wound care FOLLOW-UP PLAN: Follow up phone call. SUPPLEMENTAL MATERIAL: Homegoing instructions REFERRAL (RECOMMENDATION): None documented in this encounter [facility] 08-11-2023 Telephone encounter Note Spoke to patient and gave her results of over-read. She wants to proceed with biopsy. Order placed. [facility] 08-11-2023 Miscellaneous Notes Spoke to patient and gave her results of over-read. She wants to proceed with biopsy. Order placed. documented in this encounter [facility] 08-07-2023 Note HNO ID: [id number] Author: MARILYN JARRELL RT(R) Service: Radiology Author Type: Technologist Type: Progress Notes Filed: 08/07/2023 12:36 Note Text: Radiology Service Progress Note PATIENT NAME: Sully Enriquez DATE OF SERVICE: August 07, 2023 TIME: 12:36 PM PATIENT IDENTITY VERIFICATION COMPLETED USING TWO (2) IDENTIFIERS: Name and Date of confirmed by patient verbally. FALL SCREENING: Has the patient had 2 falls in the last year or 1 fall with injury or currently using an Ambulatory Assistive Device (Walker, Cane, Wheelchair, Crutches, etc.)? No PATIENT GENDER DATA: Female. status: : No status: NO. PATIENT RELEVANT IMPLANT DATA REVIEWED: Yes PATIENT PRESENTS WITH AN IMPLANTABLE OR ATTACHED BUSINESS ADMINISTRATION INSTRUCTOR: No RADIOLOGY DEPARTMENT: Mammography PERIPHERAL IV DATA: Not applicable SIGNED BY: RT Campos(R) August 07, 2023 12:36 PM [facility] 08-07-2023 Note HNO ID: [id number] Author: FRANCHESCA MAN PA-C Service: ? Author Type: Physician [employer] Type: Progress Notes Filed: 08/07/2023 14:26 Note Text: MEDICAL BREAST PATIENT NAME: Sully Enriquez 08/07/2023 REFERRAL: She is self referred for an opinion regarding right breast biopsy. HISTORY of PRESENT ILLNESS: Sully Enriquez is a 33 year old year old premenopausal woman who presents to the [facility] [place] today for second opinion of right breast biopsy. The patient denies any breast skin changes. She reports 1 year history of bilateral diffuse breast pain R>L. She also reports bilateral milky nipple discharge for the past year. She notices this as a white crusting on her bra most days. She hasn't breast fed in 13 years. She was seen for her breast related issues at [facility] with care as follows: 06/25/23: Diagnostic bilateral DBT and US at [facility] ([place]): - RIGHT breast 8oclock 4-5cmfn hypoechoic 2cm mass with lobulated margins. -right upper outer quadrant of the breast lymph node is seen. There is no cortical thickening. -Dilated ducts are seen in the right upper and lower outer quadrants of the breast. Recommend ultrasound-guided biopsy of a hypoechoic area seen at 8:00, 4 to 5cmfn in the right breast. 07/07/23: US guided right breast biopsy (8oclock 4-5cmfn) with clip placement with pathology showing: -fibrocystic change. This is concordant with imaging findings which were suspicious for a fibroadenoma. Recommendation: Six-month ultrasound follow-up of the right breast is recommended to assess for stability. Today she is here for a second opinion. Has Patient had Genetic Testing? No Her vitamin D level was No results found for: VITD25 . She takes no supplements. BMD: No PERSONAL BREAST HISTORY: Past breast history (prior to this encounter) is as follows: Breast biopsy: 07/07/23 right breast 8oclock 4-5cmfn, fibrocystic change, concordant Breast cysts: No Breast surgery: No Breast cancer: No CANCER SURVEILLANCE: Mammograms: 06/25/23 asymmetry seen in the posterior superior and lateral aspect of right breast leading to US and negative biopsy Breast MRI: No Colonoscopy: Yes patient reported in 2023, ascending colon polyp RISK FACTORS FOR BREAST CANCER: Age at the onset of menses: 12 P: 4 Age at the of first child: 15 years of age. She did not breast feed. Age at menopause: The patient is not menopausal at this time. Post-menopausal hormone therapy: No She is s/p hysterectomy for endometriosis. She does not use any control. History of Mantle Radiation prior to the age of 29: No Obesity: Yes, 38.61 kg/m Current Weight: 232 lb Mammographic density: The breasts are heterogeneously dense which limits the sensitivity of mammography Personal History of Benign Atypical Breast Biopsy: No Alcohol use: occasional PAST MEDICAL HISTORY: No past medical history on file. Patient specifically denies history of: DVT, PE, migraine headaches WITH AURA, migraine headaches without aura, abnormal uterine bleeding, abnormal uterine biopsies, osteopenia, osteoporosis, and kidney stones. PAST SURGICAL HISTORY: No past surgical history on file. SOCIAL HISTORY: Caffeine intake: 1 soda / day Exercise: 1-2 times weekly FAMILY HISTORY: Family history of breast cancer: paternal grandmother, unsure of age, no genetic testing Family history of ovarian cancer: None Number of sisters: 2 Number of maternal aunts: 2 Number of paternal aunts: 6 Ashkenazi Ancestry: no Other Cancer: father with lung cancer, living There is no family history of prostate, colon, uterine, pancreatic, gastric, brain, renal cell or thyroid cancer. There is no family history of melanoma, sarcoma or leukemia. Osteoporosis: None Stroke: None Blood Clot: None Heart attack: father Thyroid Nodule or Goiter: None Autism: None No family history on file. MEDICATIONS: ALPRAZolam (XANAX) 1 mg tablet Take 1 mg by mouth twice daily as needed. ALLERGIES: ALLERGIES Allergen Reactions Ciprofloxacin Unknown Dicyclomine Unknown Ketorolac Unknown Lorazepam Unknown Nitrofurantoin Unknown Penicillins Unknown Reglan [Metoclopram* Unknown Zithromax [Azithrom* Unknown REVIEW OF SYSTEMS: The patient specifically denies unintentional weight loss, insomnia, hot flashes, night sweats, abnormal swelling in the arms or legs, chest pain, shortness of breath, persistant cough, heartburn, urinary incontinence, vaginal dryness, decreased libido, unusual bony pains or severe headaches. +insomnia, hot flashes/night sweats PHYSICAL EXAM: Ht 165.1 cm (5' 5 ) Wt 105.2 kg (232 lb) BMI 38.61 kg/m? General: obese, female, alert and oriented x 3, anxious Skin: warm, dry, skin color, texture, turgor normal Head/Eyes: normocephalic, atraumatic, and anicteric Breasts and Regional Lymph Nodes: The (more content not included)... [facility] 08-07-2023 History of Presen t illness Narrative Radiology Service Progress Note PATIENT NAME: Sully Enirquez DATE OF SERVICE: August 07, 2023 TIME: 12:36 PM PATIENT IDENTITY VERIFICATION COMPLETED USING TWO (2) IDENTIFIERS: Name and Date of confirmed by patient verbally. FALL SCREENING: Has the patient had 2 falls in the last year or 1 fall with injury or currently using an Ambulatory Assistive Device (Walker, Cane, Wheelchair, Crutches, etc.)? No PATIENT GENDER DATA: Female. status: : No status: NO. PATIENT RELEVANT IMPLANT DATA REVIEWED: Yes PATIENT PRESENTS WITH AN IMPLANTABLE OR ATTACHED BUSINESS ADMINISTRATION INSTRUCTOR: No RADIOLOGY DEPARTMENT: Mammography PERIPHERAL IV DATA: Not applicable SIGNED BY: RT Campos(R) August 07, 2023 12:36 PM documented in this encounter [facility] 08-07-2023 History of Presen t illness Narrative MEDICAL BREAST PATIENT NAME: Sully Enriquez 08/07/2023 REFERRAL: She is self referred for an opinion regarding right breast biopsy. HISTORY of PRESENT ILLNESS: Sully Enriquez is a 33 year old year old premenopausal woman who presents to the [facility] today for second opinion of right breast biopsy. The patient denies any breast skin changes. She reports 1 year history of bilateral diffuse breast pain R>L. She also reports bilateral milky nipple discharge for the past year. She notices this as a white crusting on her bra most days. She hasn't breast fed in 13 years. She was seen for her breast related issues at [facility] with care as follows: 06/25/23: Diagnostic bilateral DBT and US at [facility]): - RIGHT breast 8oclock 4-5cmfn hypoechoic 2cm mass with lobulated margins. -right upper outer quadrant of the breast lymph node is seen. There is no cortical thickening. -Dilated ducts are seen in the right upper and lower outer quadrants of the breast. Recommend ultrasound-guided biopsy of a hypoechoic area seen at 8:00, 4 to 5cmfn in the right breast. 07/07/23: US guided right breast biopsy (8oclock 4-5cmfn) with clip placement with pathology showing: -fibrocystic change. This is concordant with imaging findings which were suspicious for a fibroadenoma. Recommendation: Six-month ultrasound follow-up of the right breast is recommended to assess for stability. Today she is here for a second opinion. Has Patient had Genetic Testing? No Her vitamin D level was No results found for: VITD25 . She takes no supplements. BMD: No PERSONAL BREAST HISTORY: Past breast history (prior to this encounter) is as follows: Breast biopsy: 07/07/23 right breast 8oclock 4-5cmfn, fibrocystic change, concordant Breast cysts: No Breast surgery: No Breast cancer: No CANCER SURVEILLANCE: Mammograms: 06/25/23 asymmetry seen in the posterior superior and lateral aspect of right breast leading to US and negative biopsy Breast MRI: No Colonoscopy: Yes patient reported in 2023, ascending colon polyp RISK FACTORS FOR BREAST CANCER: Age at the onset of menses: 12 P: 4 Age at the of first child: 15 years of age. She did not breast feed. Age at menopause: The patient is not menopausal at this time. Post-menopausal hormone therapy: No She is s/p hysterectomy for endometriosis. She does not use any control. History of Mantle Radiation prior to the age of 29: No Obesity: Yes, 38.61 kg/m Current Weight: 232 lb Mammographic density: The breasts are heterogeneously dense which limits the sensitivity of mammography Personal History of Benign Atypical Breast Biopsy: No Alcohol use: occasional PAST MEDICAL HISTORY: No past medical history on file. Patient specifically denies history of: DVT, PE, migraine headaches WITH AURA, migraine headaches without aura, abnormal uterine bleeding, abnormal uterine biopsies, osteopenia, osteoporosis, and kidney stones. PAST SURGICAL HISTORY: No past surgical history on file. SOCIAL HISTORY: Caffeine intake: 1 soda / day Exercise: 1-2 times weekly FAMILY HISTORY: Family history of breast cancer: paternal grandmother, unsure of age, no genetic testing Family history of ovarian cancer: None Number of sisters: 2 Number of maternal aunts: 2 Number of paternal aunts: 6 Ashkenazi Ancestry: no Other Cancer: father with lung cancer, living There is no family history of prostate, colon, uterine, pancreatic, gastric, brain, renal cell or thyroid cancer. There is no family history of melanoma, sarcoma or leukemia. Osteoporosis: None Stroke: None Blood Clot: None Heart attack: father Thyroid Nodule or Goiter: None Autism: None No family history on file. MEDICATIONS: ALPRAZolam (XANAX) 1 mg tablet Take 1 mg by mouth twice daily as needed. ALLERGIES: ALLERGIES Allergen Reactions Ciprofloxacin Unknown Dicyclomine Unknown Ketorolac Unknown Lorazepam Unknown Nitrofurantoin Unknown Penicillins Unknown Reglan [Metoclopram* Unknown Zithromax [Azithrom* Unknown REVIEW OF SYSTEMS: The patient specifically denies unintentional weight loss, insomnia, hot flashes, night sweats, abnormal swelling in the arms or legs, chest pain, shortness of breath, persistant cough, heartburn, urinary incontinence, vaginal dryness, decreased libido, unusual bony pains or severe headaches. +insomnia, hot flashes/night sweats PHYSICAL EXAM: Ht 165.1 cm (5' 5 ) Wt 105.2 kg (232 lb) BMI 38.61 kg/m General: obese, female, alert and oriented x 3, anxious Skin: warm, dry, skin color, texture, turgor normal Head/Eyes: normocephalic, atraumatic, and anicteric Breasts and Regional Lymph Nodes: The patient was examined in the upright and supine positions. There is no concerning supraclavicular, infraclavicular or axillary lymphadenopathy. The breasts are symmetrical in appearance without visible skin or nipple changes. Bilateral nipple piercings intact. The breasts were diffusely tender. RIGHT breast 8oclock 4-5cmfn there is an area of increased fibrocystic change that is tender to palpation (previous biopsy site). 9oclock 9cmfn there is an area of increased fibrocystic change with exquisite tenderness to palpation. There are no dominant breast masses or nipple discharge bilaterally. There was mild to moderate fibrocystic change throughout. IMAGING: Right ultrasound was performed today in the breast center and were negative for malignancy. 9:00 9 cmfn there is no sonographic abnormality to correlate with area of clinical concern. 8:00, 4-5 cmfn there is a oval circumscribed hypoechoic mass that is 2 x 0.9 x 1.3 cm. This is noted on outside imaging and correlates with the recently biopsied mass which is reportedly benign. The breasts are heterogeneously dense which limits the sensitivity of mammography. Assessment IMPRESSION/PLAN: Sully Enriquez is a 33 year old year old female with bilateral fibrocystic change, dense breasts, right breast benign breast biopsy (2023, fibrocystic change) and mastodynia. There is no evidence of malignancy. The patient was reassured as to the benign nature of her clinical and sonographic findings. She is at average risk for the development of breast cancer. I explained nipple discharge in detail, including the differentiation of physiologic (nonspontaneous, multiple ducts, milky/creamy, bilateral, nonbloody) from pathologic (bloody, unilateral, spontaneous) types. I explained that her discharge appeared to be physiologic and that unless it changed in character did not portend concern for breast cancer. I advised her to continue her monthly self exams, annual clinical breast exams, and annual mammograms. A prolactin was previously ordered at [facility] (06/18/23) and [facility]. A TSH was ordered today. She was referred to endocrinology. She will come back if she notices a change in the discharge or any new lumps or breast concerns. Regarding her breast pain, she is advised to completely decaffeinate her diet and have a proper bra fitting. If the pain becomes severe or persistent, she may try Evening Risingsun Oil 1000mg twice daily for 3-4 months. She was given a breast pain informational handout. Genetics referral made: No: Reason: n/a Chemoprevention discussion: N/A The patient is advised to exercise regularly, achieve/maintain ideal body weight, and to limit alcohol consumption to less than 7 drinks weekly for breast cancer risk reduction and overall health. Her imaging will be formally over-read by [facility] breast radiology team. Based on the results of this formal over-read we will determine follow-up. She will call me in the interim should she have any questions or concerns. My final recommendations will be communicated back to the requesting physician by way of shared medical record or letter via [place] mail. I spent a total of 60 minutes minutes on the date of the service which included preparing to see the patient, ykvt-ms-bdxc patient care, completing clinical documentation, obtaining and/or reviewing separately obtained history, performing a medically appropriate examination, counseling and educating the patient/family/caregiver, ordering medications, tests, or procedures, communicating with other HCPs (not separately reported), independently interpreting results (not separately reported), communicating results to the patient/family/caregiver, and care coordination (not separately reported). Franchesca Man PA-C Medical Breast Specialist 08/07/2023 CC: No referring provider defined for this encounter. Phone: N/A Fax: Keli Strickland NP [address] [place] [address] documented in this encounter [facility] 07-30-2023 Miscellaneous Notes Spoke with patient she is coming in because she states that she had a biopsy 06/2023 and was told it was fibroadenoma. Patient states that she feels like her provider is not giving her all the information and would like a second opinion. She was seen at [facility] in [place] I will reach out to them to retrieve any information and imaging needed for her appointment 08/07/23 with Franchesca FINNEGAN in the Breast Center [facility] contact number is [phone]. Kenia Peters MA documented in this encounter [facility] 05-07-2023 Evaluation note Encounter Date Diagnosis Assessment Notes Apr, Anxiety (ICD-10 - F41.9) [facility] 10-26-2023 Evaluation note* Encounter Date Diagnosis Assessment Notes Treatment Notes Treatment Clinical Notes Jan, Anxiety (ICD-10 - F41.9) [facility] Other 10-11-2023 Evaluation note* Encounter Date Diagnosis Assessment Notes Treatment Notes Treatment Clinical Notes Jan, BMI 37.0-37.9, adult (ICD-10 - Z68.37) [facility] - eRX sent. We did discuss that she needs to do a better job with the monitoring of her diet. If her weight loss does not improve, we must consider withholding medication. She voices agreement and understanding. [facility] Other 10-03-2023 Evaluation note* Encounter Date Diagnosis Assessment Notes Treatment Notes Treatment Clinical Notes Jan, Anxiety (ICD-10 - F41.9) [facility] 09-01-2023 Evaluation note* Encounter Date Diagnosis Assessment Notes Treatment Notes Treatment Clinical Notes Dec, Anxiety (ICD-10 - F41.9) [facility] 08-24-2023 Evaluation note* Encounter Date Diagnosis Assessment Notes Treatment Notes Treatment Clinical Notes Nov, BMI 37.0-37.9, adult (ICD-10 - Z68.37) [facility] -E Rx sent. No other change today. We will recheck in 1 month. [facility] Other 08-05-2023 Hospital Discharge instructions Patient Education [...] Follow these instructions at home: Medicines Take gmzn-gmt-rhzswpz and prescription medicines only as told by your health care provider. Ask your health care provider if the medicine prescribed to you: ?Requires you to avoid driving or using machinery. ?Can cause constipation. You may need to take these actions to prevent or treat constipation: ?Drink enough fluid to keep your urine pale yellow. ?Take smwd-pno-volgeva or prescription medicines. ?Eat foods that are [...] is important. Where to find more information [employer]: www.acog.org Office [...] provider. Document Revised: 11/08/2020 Document Reviewed: 11/08/2020 [employer] Patient Education 2022 [employer] 11/23/2022 01:20:40 Laparoscopic Lysis of Abdominal Adhesions [...] including vitamins, herbs, eye drops, creams, and qnld-dpl-dzjmlhs medicines. Any problems you or family members [...] provider tells you to take them. Taking vqwu-xls-jqbspjg medicines, vitamins, herbs, and supplements. General instructions [...] provider. Document Revised: 12/15/2020 Document Reviewed: 12/15/2020 [employer] Patient Education 2022 [employer] 11/23/2022 01:20:40 Adhesions, Guxg-lm-Jhbi Adhesions Adhesions are strings of tissue that [...] needed. Follow these instructions at home: Take ujen-czh-rwhmgyr and prescription medicines only as told by [...] away. Call your local emergency services (911 inthe [place] Do not wait to see if the symptoms will go away. Do not drive yourself to the hospital. Summary Adhesions are strings of tissue that stick together in the body. They can stick to organs and tissues and pull them out of place. Treatment may include medicines and surgery. Take xgjf-pql-nulgpgv and prescription medicines only as told by your doctor. This information is not intended to replace advice given to you by your health care provider. Make sure you discuss any questions you have with your health care provider. Document Revised: 12/15/2020 Document Reviewed: 12/15/2020 [employer] Patient Education 2022 [employer] 11/23/2022 01:20:40 Abdominal Pain, Adult, Lutj-hj-Zwcb Abdominal Pain, Adult Many things can cause belly (abdominal) pain. Most times, belly pain is not dangerous. Many cases of belly pain can be watched and treated at home. Sometimes, though, belly pain is serious. Your doctor will try to find the cause of your belly pain. Follow these instructions at home: Medicines Take dmnb-ylo-nnmifre and prescription medicines only as told by [...] your belly pain for any changes. Take mkot-zgs-punxgcn and prescription medicines only as told by [...] provider. Document Revised: 08/16/2019 Document Reviewed: 08/16/2019 [employer] Patient Education 2022 [employer] Follow Up Care 11/22/2022 19:01:50 With:MARIO GLASGOW Address: [facility] [place] [id number] Business (1) When:11/26/2022 [facility] Evaluation note* Encounter Date Diagnosis Assessment Notes Treatment Notes Treatment Clinical Notes Oct, BMI 37.0-37.9, adult (ICD-10 - Z68.37) [facility] - eRX sent. Call with any concerns. [facility] Other 06-27-2023 Evaluation note* Encounter Date Diagnosis [...] We will see patient back for follow-up. [facility] Other 05-30-2023 Evaluation note* Encounter Date Diagnosis Assessment Notes Treatment Notes Treatment Clinical Notes August, BMI 39.0-39.9,adult (ICD-10 - Z68.39) [facility] - eRX sent. Call with any concern. [facility] Other 05-30-2023 Evaluation note* Encounter Date Diagnosis Assessment Notes Treatment Notes Treatment Clinical Notes August, BMI 39.0-39.9,adult (ICD-10 - Z68.39) [facility] Other 12-28-2022 Evaluation note* Encounter Date Diagnosis [...] year, with out any concerns with anesthesia. [facility] Other 09-06-2022 Evaluation note* Encounter Date Diagnosis Assessment Notes Treatment Notes Treatment Clinical Notes Dec, BMI 36.0-36.9,adult (ICD-10 - Z68.36) [facility] Other 08-24-2022 Evaluation note* Encounter Date Diagnosis [...] third and final prescription of the Adipex. [facility] Other 08-03-2022 Evaluation note* Encounter Date Diagnosis Assessment Notes Treatment Notes Treatment Clinical Notes Nov, BMI 36.0-36.9,adult (ICD-10 - Z68.36) [facility] Other 07-05-2022 Evaluation note* Encounter Date Diagnosis Assessment Notes Treatment Notes Treatment Clinical Notes Oct, Conjunctivitis (ICD9-CM - 372.30) [facility] Other 06-24-2022 Evaluation note* Encounter Date Diagnosis Assessment Notes Treatment Notes Treatment Clinical Notes Sep, BMI 37.0-37.9, adult (ICD-10 - Z68.37) [facility]-E Rx sent. Lengthy discussion regarding side effects as well as possible outcomes of the medication. We will see her back in 1 month. Patient to call with any concerns. [facility] Other 06-24-2022 Evaluation note* Encounter Date Diagnosis Assessment Notes Treatment Notes Treatment Clinical Notes Sep, BMI 37.0-37.9, adult (ICD-10 - Z68.37) [facility] Other 06-13-2022 Evaluation note* Encounter Date Diagnosis Assessment Notes Treatment Notes Treatment Clinical Notes Sep, BMI 38.0-38.9,adult (ICD-10 - Z68.38) [facility] Other 06-09-2022 Evaluation note* Encounter Date Diagnosis [...] psychiatric diagnoses/as well as her seizure concerns. [facility] Other 04-27-2022 Hospital Discharge instructions Patient Education [...] fried and sweet foods. General instructions Take ppae-zhi-trxtfbs and prescription medicines only as told by [...] 02/01/2010 Document Revised: 07/29/2019 Document Reviewed: 04/23/2018 [employer] Patient Education 2020 [employer] [facility] 02-09-2022 Evaluation note* Encounter Date Diagnosis Assessment [...] 2mg at that time of refill need. [facility] Other 01-18-2022 Evaluation note* Encounter Date Diagnosis Assessment Notes Treatment Notes Treatment Clinical Notes Apr, Dysuria (ICD-10 - R30.0) [facility] Other 01-12-2022 Evaluation note* Encounter Date Diagnosis [...] next week. She voices agreement and understanding. [facility] Other 11-17-2021 NoteHNO ID: [id number] Author: Rosalie Haile MD Service: ? Author Type: Physician Type: Progress Notes Filed: 03/08/2021 8:38 PM Note Text: [facility] - General Progress Note SULLY ENRIQUEZ Alyse : 1990 AGE: 31 SEX: F CSN: [id number] [facility] LOCATION: [facility] ATTENDING PHYSICIAN: Rosalie Haile M.D. DATE OF [...] follow up. Rosalie Haile M.D. Internal Medicine ESPINOZA:[id number] NoteHNO ID: [id number] Author: Saravanan Yancey MD Service: Neurology General [...] MD DPhil Neurology Resident, PGY-4 March 07, 2021[id number] NoteHNO ID: [id number] Author: JULITO Lino Service: Care Management Author Type: Center Director Type: Care Mgt Initial Assessment Filed: 03/06/2021 4:04 PM Note Text: CARE MANAGEMENT: ASSESSMENT AND DISCHARGE PLAN SERVICE DATE: March 06, 2021 SERVICE TIME: 4:00 PM PRIMARY CARE PHYSICIAN: Keli Strickland NP ADMISSION STATUS: Inpatient Needs Prior to Discharge: None [facility]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 to Assist with AD Completion: Yes [...] None Has the Patient Been in a Custodial Facility in the Past 30 days?: No SOCIAL: Living Arrangements: Home Lives With: Partner;Daughter;Son Financial Resources: Employed Primary Contact: Extended Emergency Contact Information Primary Emergency Contact: jamari strong Address: [address] [place] [address] [facility] Mobile Relation: Significant other Secondary Emergency Contact: [...] Completely I feel financially burdened by my ser-ba-ptcmkl expenses for my prescription medication:: 0 - Disagree Completely Risk Score: 0 Patient is categorized as: Low risk < 2 Are you interested in bedside delivery of your medications? No Is Patient Psychosocially Complex?: No ASSESSMENT AND PLAN: Medical Needs: Medical Needs: None Psychosocial Needs: Psychosocial Needs: Mental Health Diagnosis Mental Health Information: Coversion d/o, anxiety FREEDOM OF CHOICE EXPLAINED: [place] of Choice Given: No Reason Not Given: No placements necessary POTENTIAL TRANSITION PLANS Home Pt presents to ED s/p seizer, headache, CP, Hx diabetes (pt adamant she does not have DM), anxiety, epilepsy, conversion disorder. Independent of ADLS and iADLS, [facility] with Jamari, 13 y/o dtr and 10 y/o son. Pt reports she is employed and drives. Does not utilize any DME, detention or community resources. No skilled needs identified at this time. DC transportation will be provided by [facility] [phone]. SIGNATURE: JULITO Lino PATIENT NAME: Sully Enriquez DATE: March 06, 2021 TIME: 4:00 PM PAGER/CONTACT #: [phone] HospitalEvaluation + Plan note No data available for this section [facility] evaluation noteNo InformationNort userADgents Other Evaluation noteNo assessment information available [facility] Work Phone: Evaluation note* Diagnosis Disorder of breast- Primary Unspecified breast disorder documented in this encounter [facility] note* Diagnosis Mastodynia- Primary Fibrocystic breast changes of both breasts Family history of breast cancer Family history of malignant neoplasm of breast Dense breasts Inconclusive mammogram Nipple discharge Other sign and symptom in breast documented in this encounter [facility] note* Diagnosis Disorder of breast Unspecified breast disorder Fibrocystic breast changes of both breasts Family history of breast cancer Family history of malignant neoplasm of breast Mastodynia documented in this encounter [facility] note* Diagnosis Onset Date Resolution Status Fatigue noneactive BMI 39.0-39.9,adult noneacti ve [facility] Work Phone: Evaluation note* Diagnosis Fibrocystic breast changes of both breasts Family history of breast cancer Family history of malignant neoplasm of breast Mastodynia Dense breasts Inconclusive mammogram Nipple discharge Other sign and symptom in breast Mass of right breast, unspecified quadrant documented in this encounter [facility] note* Diagnosis Breast fibroadenoma, right- Primary Fibrocystic breast changes of both breasts Mastodynia Dense breasts Inconclusive mammogram documented in this encounter [facility] note* Diagnosis Onset Date Resolution Status Fatigue noneactive BMI 39.0-39.9,adult noneacti ve BMI 39.0-39.9,adult noneacti ve [facility] Work Phone: Evaluation note* Diagnosis Onset Date Resolution Status Fatigue noneactive BMI 39.0-39.9,adult noneacti ve BMI 39.0-39.9,adult noneacti ve BMI 38.0-38.9,adult noneacti ve [facility] Work Phone: History general Narrative - Reported* Type Description [...] oophorectomy, bilateral 2011 Surgical History kidney stone 2018 Surgical History Right Foot Surgery 06/2021 Surgical History Right Kidney Stent 05/2021 Hospitalization History bowel obstruction, 3 dif ferent times Hospitalization History Seizures 02/2021 [facility] Other [facility] general Narrative - Reported* Type Description Date [...] dif ferent times Hospitalization History Seizures 02/2021 [facility] Narrative - ReportedNortSumomi Other [facility] Narrative - Reported* Type Description Date [...] dif ferent times Hospitalization History Seizures 02/2021 [facility] Other Hospital Discharge instructions Additional Instructions DISCHARGE [...] FOLLOW UP -[Please call the office at ([phone]) to make follow appointment before leaving the hospital]. -[2 Weeks] [ ][facility] Work Phone: Hospital Discharge instructions No data available for this section [facility] progress note No data available for this section [facility] Diagnostic Procedure Only (Routine) - Authorized Specialty Diagnoses / Procedures Referred By Nikolas guerrero Referred To Contact [facility]AGING Diagnoses Disorder of breast Procedures SAJI DIAGNOSTIC BILATERAL DIAGNOSTIC MAMMOGRAPHY COMPUTER-AIDED DETCJ BI Franchesca Man PA-C [address] [address] [facility] [address] [place] [address] Referral ID Status Reason Start Date Expiration Date Visits Requested Visits Authorized [id number] Authorized Auto-Generat ed Referral 08/06/2023 09/04/2024 1 1 [facility] for referral (narrative)* Diagnostic Procedure Only (Routine) - Closed Specialty Diagnoses / Procedures Referred By Nikolas guerrero Referred To Contact [facility] IMAGING Diagnoses Fibrocystic breast changes of both breasts Family history of breast cancer Mastodynia Procedures US BREAST LTD RIGHT US BREAST UNI REAL TIME WITH IMAGE LIMITED Franchesca Man PA-C [address] [address] [facility] [address] [place] [address] Referral ID Status Reason Start Date Expiration Date V isits Requested Visits Authorized [id number] Closed Auto-Generate d Referral 08/07/2023 04/20/2024 1 1 [facility] for referral (narrative)* Diagnostic Procedure Only (Routine) - Closed Specialty Diagnoses / Procedures Referred By Nikolas guerrero Referred To Contact BR IMAGING Diagnoses Fibrocystic breast changes of both breasts Family history of breast cancer Mastodynia Dense breasts Nipple discharge Mass of right breast, unspecified quadrant Procedures US BIOPSY BREAST RIGHT BX BREAST W/DEVICE 1ST LESION ULTRASOUND GUID Franchesca Man PA-C [address] [address] [facility] [address] [place] [address] Referral ID Status Reason Start Date Expiration Date V isits Requested Visits Authorized [id number] Closed Auto-Generate d Referral 08/11/2023 09/09/2024 1 1 [facility] for visit Narrative1 month Follow up, ER visit recently [facility]errals [facility] Other Summary Purpose Family History Relationship Condition Age at Onset Recorded Date/T gar[place] father Hypertension Unknown Abdominal aortic aneurysm (AAA) Unknown Chronic obstructive pulmonary disease Unk nown Not Specified Alive and well Unknown brother Schizophrenia Unknown Relationship Condition Age at Onset Recorded Date/T garfield father Hypertension Unknown Abdominal aortic aneurysm (AAA) Unknown Chronic obstructive pulmonary disease Unk nown Not Specified Alive and well Unknown brother Schizophrenia Unknown family member Unknown Relationship Condition Age at Onset Recorded Date/T garfield father Hypertension Unknown Abdominal aortic aneurysm (AAA) Unknown Chronic obstructive pulmonary disease Unk nown mother Alive and well Unknown brother Schizophrenia Unknown family member Unknown Advance Directives Advance Directive Response Recorded Date/ Time Advance Directives No February 24, 2017 1:55pm Advance Directive Response Recorded Date/ Time Advance Directives No February 24, 2017 2:55pm Chief Complaint and Reason for Visit Chief [...] Uterine Bleeding, Dysmenorrh Urinary frequency Chief Complaint 1 Month Follow Up seizure, chest pain Chief Complaint seizure, chest pain Amb Documentation Amb Documentation Amb Documentation rt breast bx Amb Documentation Chief Complaint seizure, chest pain Amb Documentation Amb Documentation Amb Documentation rt breast bx Amb Documentation Amb Documentation adipex Reason for Visit Fatigue BMI 39.0-39.9,adult Chief Complaint Amb Documentation adipex follow up Reason for Visit Fatigue BMI 39.0-39.9,adult BMI 39.0-39.9,adult Chief Complaint adipex follow up 1 month Reason for Visit Fatigue BMI 39.0-39.9,adult BMI 39.0-39.9,adult BMI 38.0-38.9,adult Reason for Referral Specialty Diagnoses / Procedures Referred By Contac t Referred To Contact General Surgery Diagnoses Breast fibroadenoma, right Fibrocystic breast changes of both breasts Mastodynia Dense breasts Procedures CONSULT TO GENERAL SURGERY OFFICE/OUTPATIENT [facility] 60 MINUTES Franchesca Man PA-C [address] [address] Referral ID Status Reason Start Date Expiration Date Visits Requested Visits Authorized [id number] Authorized PCP Requested Referral 09/12/2023 09/11/2024 1 1 Specialty Diagnoses / Procedures Referred By Contac t Referred To Contact Endocrinology Diagnoses Nipple discharge Procedures CONSULT TO ENDOCRINOLOGY OFFICE/OUTPATIENT [facility] 60 MINUTES Franchesca Man PA-C [address] [address] Referral ID Status Reason Start Date Expiration Date Visits Requested Visits Authorized [id number] Authorized PCP Requested Referral 08/07/2023 08/06/2024 1 1 Specialty Diagnoses / Procedures Referred By Contac t Referred To Contact [facility] IM[facility] Diagnoses Fibrocystic breast changes of both breasts Family history of breast cancer Mastodynia Procedures US BREAST LTD RIGHT US BREAST UNI REAL TIME WITH IMAGE LIMITED Franchesca Man PA-C [address] [address] [facility] [address] [place] [address] Referral ID Status Reason Start Date Expiration Date V isits Requested Visits Authorized [id number] Closed Auto-Generate d Referral 08/07/2023 04/20/2024 1 1 Reason Appt time Consult and treat abdominal pain - [facility] x 2 Diagnosis 1 Abdominal pain (R10. 9) Referral Organization [facility] Referring Provider First Name Mario Referring Provider Last Name Pee Referring Provider Specialty Family Prac cody Referred Organization Unknown Facility Referred Provider Sumeet Haq Referred Provider Specialty Surgery Referral Priority Routine General Notes Renetta aDmico 2022 08:55:03 AM > Sumeet Haq DO, phone [phone]. [facility] recommended Additional Source Comments INFORMATION SOURCE (unrecogn ized section and content) DATE CREATED AUTHOR [facility]/11/2021 [facility] DATE CREATED AUTHOR AUTHOR'S ORGANIZ ATION 08/15/2022 [facility] DATE CREATED AUTHOR AUTHOR'S ORGANIZ ATION 02/15/2023 [facility] DATE CREATED AUTHOR AUTHOR'S ORGANIZ ATION 07/15/2023 [facility] DATE CREATED AUTHOR AUTHOR'S ORGANIZ ATION 09/13/2023 [facility] DATE CREATED AUTHOR AUTHOR'S ORGANIZ ATION 10/09/[address] [facility] Special[facility] REASON FOR VISIT (unrecogniz ed section and content) Reason Comments New Patient Pain in both breast, enlarged lymph node in Rt armpit. Establish care Reason Comments Radiology Mammogram Specialty Diagnoses / Procedures Referred By Nikolas guerrero Referred To Contact BR IMAGING Diagnoses Disorder of breast Procedures SAJI DIAGNOSTIC BILATERAL DIAGNOSTIC MAMMOGRAPHY COMPUTER-AIDED DETCJ BI Franchesca Man PA-C [address] [address] [facility] [address] [place] [address] Referral ID Status Reason Start Date Expiration Date V isits Requested Visits Authorized [id number] Closed Auto-Generate d Referral 08/06/2023 09/04/2024 1 1 Reason Comments Radiology Invasive Breast Procedure Specialty Diagnoses / Procedures Referred By Nikolas guerrero Referred To Contact [facility] IMAGING Diagnoses Fibrocystic breast changes of both breasts Family history of breast cancer Mastodynia Dense breasts Nipple discharge Mass of right breast, unspecified quadrant Procedures US BIOPSY BREAST RIGHT BX BREAST W/DEVICE 1ST LESION ULTRASOUND GUID Franchesca Man PA-C [address] [address] [facility] [address] [place] [address] Referral ID Status Reason Start Date Expiration Date V isits Requested Visits Authorized [id number] Closed Auto-Generate d Referral 08/11/2023 09/09/2024 1 1 Reason Comments Results Care Teams (unrecognized sec tion and content) Team Status: Active Member Role Status Dates Mario Glasgow , DO Primary Care Provider Active Team Status: Inactive Member Role Status Dates Mario Glasgow , DO Primary Care Provid er, Attending Provider Active Start: August 27, 2023 End: August 27, 2023 Team Status: Active Member Role Status Dates Mario Glasgow DO Primary Care Provid er, Attending Provider Active Start: September 02, 2023 Team Status: Inactive Member Role Status Dates Mario Glasgow , DO Primary Care Provid er, Attending Provider Active Start: October 08, 2023 End: October 08, 2023 Team Status: Inactive Member Role Status Dates Mario Glasgow , DO Primary Care Provid er, Attending Provider Active Start: November 12, 2023 End: November 12, 2023 Team Status: Active Member Role Status Dates Mario Glasgow , DO Primary Care Provider Active Team Status: Active Member Role Status Dates Mario Glasgow DO Primary Care Provid er, Attending Provider Active Start: July 25, 2023 Team Status: Active Member Role Status Dates Mario Glasgow DO Primary Care Provider Active Start: August 13, 2023 Shukri Wynne LPN Attending Provider Active St art: August 13, 2023 Team Status: Inactive Member Role Status Dates Mario Glasgow , DO Primary Care Provid er, Attending Provider Active Start: August 27, 2023 End: August 27, 2023 Team Status: Active Member Role Status Dates Mario Glasgow DO Primary Care Provid er, Attending Provider Active Start: September 02, 2023 Team Status: Inactive Member Role Status Dates Mario Glasgow , DO Primary Care Provid er, Attending Provider Active Start: October 08, 2023 End: October 08, 2023 Team Status: Inactive Member Role Status Dates Mario Glasgow , DO Attending Provider Active Team Status: Inactive Member Role Status Dates Mario Glasgow DO Primary Care Provider Active Jose Cade , DO Emergency Provider Active Team Status: Inactive Member Role Status Dates Mario Glasgow , Primary Care Provider Active Rell Garcia , DO Attending Provider Active Team Status: Inactive Member Role Status Dates Rell Garcia , DO Attending Provider Active Team Status: Inactive Member Role Status Dates Mario Glasgow DO Attending Provider Active S tart: April 01, 2023 End: April 01, 2023 Team Status: Inactive Member Role Status Dates Mario Glasgow DO Primary Care Provider Active Start: June 03, 2023 End: June 03, 2023 Bhanu Alvarez PA-C Emergency Provider Active Start: June 03, 2023 End: June 03, 2023 Team Status: Active Member Role Status Dates Mario Glasgow DO Primary Care Provider Active Start: June 06, 2023 Shukri Wynne LPN Attending Provider Active St art: June 06, 2023 Team Status: Active Member Role Status Dates Mario Glasgow DO Primary Care Provider Active Start: June 30, 2023 Azeb Quach LPN Attending Provider Active S tart: June 30, 2023 Team Status: Active Member Role Status Dates Mario Glasgow DO Primary Care Provider Active Start: July 01, 2023 Azeb Quach LPN Attending Provider Active S tart: July 01, 2023 Team Status: Inactive Member Role Status Dates Mario Glasgow DO Primary Care Provider Active Start: July 07, 2023 End: July 07, 2023 Lucero Belle DO Attending Provider Active Start: July 07, 2023 End: July 07, 2023 Team Status: Active Member Role Status Dates Mario Glasgow DO Primary Care Provider Active Start: July 07, 2023 Shukri Wynne LPN Attending Provider Active St art: July 07, 2023 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 Start Date End Date Keli Strickland NP [address] [place] [address] PCP - General Family Medicine 10/19/16 Erin Chavez MD [address] [place] [address] Urology 01/01/23 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 Start Date End Date Keli Strickland NP [address] [place] [address] PCP - General Family Medicine 10/19/16 Erin Chavez MD [address] [place] [address] Urology 01/01/23 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 Start Date End Date Keli Strickland NP [address] [place] [address] PCP - General Family Medicine 10/19/16 Erin Chavez MD [address] [place] [address] Urology 01/01/23 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 Start Date End Date Keli Strickland NP [address] [address] PCP - General Family Medicine 10/19/16 Erin Chavez MD [address] [place] [address] Urology 01/01/23 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 Start Date End Date Keli Strickland NP [address] [address] PCP - General Family Medicine 10/19/16 Erin Chavez MD [address] [place] [address] Urology 01/01/23 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 Start Date End Date Keli Strickland NP [address] [place] [address] PCP - General Family Medicine 10/19/16 Erin Chavez MD [address] [place] [address] Urology 01/01/23 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 Start Date End Date Keli Strickland NP [address] [place] [address] PCP - General Family Medicine 10/19/16 Erin Chavez MD [address] [place] [address] Urology 01/01/23 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 Start Date End Date Keli Strickland NP [address] [place] [address] PCP - General Family Medicine 10/19/16 Erin Chavez MD [address] [place] [address] Urology 01/01/23 Team Status: Inactive Member Role Status Dates Mario Glasgow DO Primary Care Provid er, Attending Provider Active Start: November 12, 2023 End: November 12, 2023 Goals (unrecognized section and content) Goals may be documented in a n alternate section Source Comments (unrecognize d section and content) In the event this informatio n is protected by the Federal Confidentiality of Alcohol and Drug Abuse Patient Records regulations: The Federal rules restrict any use of the information to criminally investigate or prosecute any alcohol or drug abuse patient.[facility] the event this information is protected by the Federal Confidentiality of Alcohol and Drug Abuse Patient Records regulations: The Federal rules restrict any use of the information to criminally investigate or prosecute any alcohol or drug abuse patient.[facility] the event this information is protected by the Federal Confidentiality of Alcohol and Drug Abuse Patient Records regulations: The Federal rules restrict any use of the information to criminally investigate or prosecute any alcohol or drug abuse patient.[facility] the event this information is protected by the Federal Confidentiality of Alcohol and Drug Abuse Patient Records regulations: The Federal rules restrict any use of the information to criminally investigate or prosecute any alcohol or drug abuse patient.[facility] the event this information is protected by the Federal Confidentiality of Alcohol and Drug Abuse Patient Records regulations: The Federal rules restrict any use of the information to criminally investigate or prosecute any alcohol or drug abuse patient.[facility] the event this information is protected by the Federal Confidentiality of Alcohol and Drug Abuse Patient Records regulations: The Federal rules restrict any use of the information to criminally investigate or prosecute any alcohol or drug abuse patient.[facility] the event this information is protected by the Federal Confidentiality of Alcohol and Drug Abuse Patient Records regulations: The Federal rules restrict any use of the information to criminally investigate or prosecute any alcohol or drug abuse patient.[facility] the event this information is protected by the Federal Confidentiality of Alcohol and Drug Abuse Patient Records regulations: The Federal rules restrict any use of the information to criminally investigate or prosecute any alcohol or drug abuse patient.[facility] the event this information is protected by the Federal Confidentiality of Alcohol and Drug Abuse Patient Records regulations: The Federal rules restrict any use of the information to criminally investigate or prosecute any alcohol or drug abuse patient.[facility] FOR RECORDS PERTAINING TO PATIENTS WHO ARE [...] BE BASED ON THE PRIMARY CLINICAL RECORDS. [facility] [employer] [facility]. provides no warranty or guarantee of the accuracy or completeness of information in this document.
--- NOTE | 2023-12-05 00:45 | XR_ITS ---
The [address] [address] Patient Name: TICO ENRIQUEZ MRN: [id number] date: 1990 Sex: F Assigned Patient Location: ER Current Patient Location: Accession/Order Number: [id number] Exam Date: 12/05/2023 00:58 Report Date: 12/05/2023 02:28 At the request of: JOSE RAMON LOCO Procedure: XR lumbar spine 2-3V EXAM: XR lumbar spine 2-3V HISTORY: Atraumatic pain COMPARISON: None. TECHNIQUE: Frontal and lateral views of the lumbar spine and a coned-down lateral view of the lumbosacral junction were obtained. FINDINGS: No acute fracture or subluxation is seen. The vertebral body heights are preserved. The vertebral elements are in anatomic alignment. The disc spaces are preserved. There are mild scattered degenerative changes including endplate osteophytes. The sacroiliac joints are patent. XR/XR lumbar spine 2-3V IMPRESSION: 1. No acute osseous abnormality of the lumbar spine is seen. Electronically authenticated by: Storm ALBARRAN Date: 12/05/2023 02:28
--- NOTE | 2023-12-05 00:45 | ED.GENADUL1 ---
HPI HPI - General Adult General Chief complaint: Extremity Problem, Nontraumatic Stated complaint: l hip pain Time Seen by Provider: 12/05/23 00:40 Source: patient Mode of arrival: walk-in Limitations: no limitations History of Present Illness HPI narrative: 33-year-old female presents for lower back pain. Starts in the midline and goes off to the left. No dysuria or hematuria. She has had kidney stones previously and this does not feel anything like a kidney stone. This is an ongoing issue for her and it appears to have been present since the of her child about 13 years ago. It does not radiate into her leg and she has no weakness or numbness. Related Data Home Medications ?Medication ?Instructions ?Recorded ?Confirmed tizanidine 4 mg tablet 4 mg PO BEDTIME muscle spasticity 11/17/22 12/05/23 alprazolam 1 mg PO BID PRN anxiety 12/24/22 12/05/23 hydrocodone 5 mg-acetaminophen 325 1 tab PO Q4H PRN pain 05/10/23 05/10/23 mg tablet montelukast 10 mg tablet 10 mg PO DAILY 05/10/23 05/10/23 phentermine 37.5 mg tablet mg 12/05/23 Previous Rx's ?Medication ?Instructions ?Recorded tramadol 50 mg tablet 50 mg PO Q8H PRN pain 3 days #9 04/27/23 tabs acetaminophen 300 mg-codeine 30 mg 1 tab PO Q6H PRN pain 3 days #12 12/05/23 tablet tabs Allergies Allergy/AdvReac Type Severity Reaction Status Date / Time nitrofurantoin Allergy Severe itching Verified 12/05/23 00:18 [From Macrobid] azithromycin [From Zithromax] Allergy Unknown Unknown Verified 12/05/23 00:18 ciprofloxacin [From Cipro] Allergy Unknown Hives Verified 12/05/23 00:18 ketorolac [From Toradol] Allergy Unknown Unknown Verified 12/05/23 00:18 metoclopramide [From Reglan] Allergy Unknown Unknown Verified 12/05/23 00:18 Penicillins Allergy Unknown Unknown Verified 12/05/23 00:18 zolpidem [From Ambien] AdvReac agitation Verified 12/05/23 00:18 Opioid HPI Opioid Management Most Recent Opioid Data: Last Pain Scale 6 07/25/23 20:44 Review of Systems ROS Narrative A ten point review of systems is negative except as noted above. [facility] Medical History (Updated 12/05/23 @ 01:51 by Rickey Beaver MD) Kidney stones ?N20.0 - Calculus of kidney (ICD-10) POTS (postural orthostatic tachycardia syndrome) ?G90.A - Postural orthostatic tachycardia syndrome [POTS] (ICD-10) Migraines ?G43.909 - Migraine, unspecified, not intractable, without status migrainosus (ICD-10) Seizure ?R56.9 - Unspecified convulsions (ICD-10) History of anxiety ?Z86.59 - Personal history of other mental and behavioral disorders (ICD-10) History of depression ?Z86.59 - Personal history of other mental and behavioral disorders (ICD-10) History of seizure ?Z87.898 - Personal history of other specified conditions (ICD-10) Surgical History (Updated 01/22/23 @ 06:55 by Xochitl Weaver) History of colonoscopy ?Z98.890 - Other specified postprocedural states (ICD-10) History of nephrostomy History of bunionectomy of right great toe ?Z98.890 - Other specified postprocedural states (ICD-10) H/O LEEP ?Z98.890 - Other specified postprocedural states (ICD-10) S/P laparoscopy ?Z98.890 - Other specified postprocedural states (ICD-10) Hx of cystoscopy ?Z98.890 - Other specified postprocedural states (ICD-10) History of hysterectomy ?Z90.710 - Acquired absence of both cervix and uterus (ICD-10) History of tubal ligation ?Z98.51 - Tubal ligation status (ICD-10) Family History (Updated 01/14/23 @ 12:43 by Soraida Blount) Father Family history of COPD (chronic obstructive pulmonary disease) Family history of cancer Family history of myocardial infarction Social History (Updated 01/22/23 @ 06:57 by Xochitl Weaver) Within the past year, how often did you have a drink containing alcohol: monthly or less Smoking status: Never smoker Non-prescribed substance use: denies use Highest level of school completed/degree received: some college, no degree Exam Narrative Exam Narrative: Nurses note and vital signs reviewed and patient is not hypoxic. General: The patient appears mildly uncomfortable. Skin: Warm, dry, no pallor noted. There is no rash noted. Head: Normocephalic, atraumatic Eye: Normal conjunctiva, no drainage Ears, Nose, Mouth, and Throat: oral mucosa is moist. Nares patent. Cardiovascular: Regular Rate and Rhythm Respiratory: Patient is in no distress, no accessory muscle use, lungs are clear to auscultation, no wheezing, rales or rhonchi Back: No bruise to her back. She has no palpable tenderness to palpation. GI: Soft and nontender Musculoskeletal: Left hip has good range of motion. No swelling in her leg Neurological: A&O x4, normal speech Psychiatric: Cooperative Constitutional Vital Signs, click to edit/add: Last Vital Signs Temp 98.1 F 12/05/23 00:13 Pulse 85 12/05/23 00:13 Resp 16 12/05/23 00:13 BP 140/97 H 12/05/23 00:13 Pulse Ox 98 12/05/23 00:13 O2 Del Method Room Air 12/05/23 00:13 Course Vital Signs Vital signs: Vital Signs Temperature 98.1 F 12/05/23 00:13 Pulse Rate 85 12/05/23 00:13 Respiratory Rate 16 12/05/23 00:13 Blood Pressure 140/97 H 12/05/23 00:13 Pulse Oximetry 98 12/05/23 00:13 Oxygen Delivery Method Room Air 12/05/23 00:13 Temperature 98.1 F 12/05/23 00:13 Pulse Rate 85 12/05/23 00:13 Respiratory Rate 16 12/05/23 00:13 Blood Pressure 140/97 H 12/05/23 00:13 Pulse Oximetry 98 12/05/23 00:13 Oxygen Delivery Method Room Air 12/05/23 00:13 Medical Decision Making [facility] Narrative Medical decision making narrative: Lumbar x-rays on my interpretation showed no acute findings. She states she has muscle relaxers at home that she can take and she was prescribed 12 Tylenol 3 tablets. Treatment diagnosis and follow-up were discussed with the patient. Differential Diagnosis Differential Diagnosis: Muscle strain, low back pain, compression fracture Imaging Data Lumbar x-rays: My impression: No acute findings Discharge Plan Discharge Stand Alone Forms: Portal Instructions Chief Complaint: Extremity Problem, Nontraumatic Clinical Impression: Low back pain Patient Disposition: Home, Self-Care Time of Disposition Decision: 01:51 Condition: Good Mode of Transportation: Private Vehicle Prescriptions / Home Meds: New acetaminophen-codeine 300-30 mg tablet 1 tab PO Q6H PRN (Reason: pain) 3 Days Qty: 12 0RF No Action tizanidine 4 mg tablet 4 mg PO BEDTIME tramadol 50 mg tablet 50 mg PO Q8H PRN (Reason: pain) 3 Days Qty: 9 0RF hydrocodone-acetaminophen 5-325 mg tablet 1 tab PO Q4H PRN (Reason: pain) montelukast 10 mg tablet 10 mg PO DAILY phentermine 37.5 mg tablet alprazolam [Xanax] 1 mg PO BID PRN (Reason: anxiety) Print Language: Irish Instructions: Acute Low Back Pain (ED) Referrals: MARIO GUAMAN [Primary Care Provider] - 1 week
[2023-12-05] MEDS: MORPHINE SULFATE 4 MG/ML VIAL 10 MG IM (00:51)
== END 2023-12-05 01:59 | disposition home or self-care (01) ==
PROVIDERS: Emergency Provider Emergency Medicine; PCP Family Medicine
DX: M54.50 Low back pain, unspecified (principal); Z87.442 Personal history of urinary calculi
CPT/HCPCS: 72100; 96372; 99284; J2270

== ENCOUNTER 2023-12-16 23:02 | Emergency (ER) | payer OTHER, SELFPAY ==
[2023-12-16 23:10] VITALS: BP 139/95; PULSE 88; TEMP 36.9; O2SAT 97; BMI 37.9
--- OUTSIDE RECORDS SUMMARY | 2023-12-16 23:10 | XMS_ITS | CCD ---
Author Organization [facility] Care Team Providers Care Business Services Associate Name Role Phone MARIO GLASGOW Primary Care [...] Primary Care Provider KIKE Alvarez Emergency Provider DO Mario Glasgow. Primary Care Provider KIKE Alvarez Emergency Provider [phone] DO Lucero Belle Attending Provider [phone] Mario Glasgow. Primary Care Unavailable Bhanu Alvarez Admitting Unavailable Bhanu Alvarez Attending Unavailable Loren, Lucero Admitting Unavailable Loren, Lucero Attending Unavailable Mario Glasgow Primary Care Unavailable Em LASSITER, Keli Cervantes Primary Care Provider Erin Chavez MD Unavailable Em LASSITER, Keli [...] Azithromycin; Translations: [azithromycin] Drug Allergy 03-06-20 Unknown [employer] Other (4 sources) cefTRIAXone; Translations: [ceftriaxone] Drug Allergy Mean (qualifier value) [facility] (20 sources) Ciprofloxacin; Translations: [ciprofloxacin] Drug Allergy 03-06-20 Unknown [employer] Other (20 sources) Dicyclomine; Translations: [dicyclomine] Drug Allergy 03-06-20 Unknown [facility] (20 sources) Ketorolac; Translations: [ketorolac] Drug Allergy 03-06-20 Unknown [facility] [employer] Other (20 sources) Metoclopramide; Translations: [metoclopramide] Drug Allergy 03-06-20 Unknown [employer] Other (20 sources) Morphine; Translations: [morphine] Drug Allergy 06-03-19 24 Hives, Hives-IV [facility] [employer] Other Comment on above: causes hives (20 sources) NITROFURANTOIN, MACROCRYSTALS / Nitrofurantoin, Monohydrate; Translations: [nitrofurantoin] Drug Allergy Itching, Unknown [facility] [employer] Other (20 sources) Penicillin; Translations: [penicillin] Drug Allergy Unknown (qualifier value) [employer] [facility] [employer] Other (4 sources) zolpidem; Translations: [zolpidem] Drug Allergy Agitation [facility] (20 sources) diphenhydrAMINE Drug Allergy IV Hives [employer] [facility] [employer] Other (20 sources) LORazepam; Translations: [LORAZEPAM] Drug Allergy 03-06-20 Unknown [facility] (20 sources) Penicillin V Drug Allergy Unknown [facility] Other (10 sources) diphenhydrAMINE Drug Allergy IV Hives [facility] [employer] Other (20 sources) DULoxetine Drug Allergy 06-03-19 24 worsen depression [facility] (20 sources) Nitrofurantoin; Translations: [nitrofurantoin] Drug Allergy 03-06-20 21 Unknown [facility] (20 sources) Penicillins; Translations: [Penicillins] Allergy to substance 09-17-19 13 Unknown [facility] (1 source) Azithromycin Drug Allergy 09-17-19 13 [facility] (1 source) Ciprofloxacin Drug Allergy 09-17-19 13 [facility] (1 source) Dicyclomine Drug Allergy 07-20-19 15 [facility] (1 source) Iothalamate Drug Allergy 09-17-19 13 [facility] (1 source) Ketorolac Drug Allergy 03-11-20 13 [facility] (1 source) LORazepam Drug Allergy 09-10-19 16 [facility] (1 source) Nitrofurantoin Drug Allergy 09-17-19 13 [facility] (1 source) LORazepam; Translations: [Ativan] Drug Allergy [facility] Rep[facility] (1 source) Azithromycin Drug Allergy 06-03-19 [facility] (1 source) Ciprofloxacin Drug Allergy 06-03-19 [facility] (1 source) Dicyclomine Drug Allergy 06-03-19 [facility] (1 source) DULoxetine Drug Allergy 06-03-19 [facility] (1 source) Ketorolac Drug Allergy 06-03-19 [facility] (1 source) LORazepam Drug Allergy 06-03-19 [facility] (1 source) Metoclopramide Drug Allergy 06-03-19 [facility] (1 source) Morphine Drug Allergy 06-03-19 [facility] Medications Current Medications Medication Drug Class(es) Dates Sig (Normalized) Sig (Original) Acetaminophen / HYDROcodone (14 sources) Opioid Agonist Start: 05-16-2021 [place] 5/325 Tab Oral, q6hr, Refill(s) 0 Start [...] 90 tab(s), Refills(s) 3, Bladder problems, Pharmacy: [facility]/pharmacy #[id number], 165, cm, 05/18/21 11:56:00 EST, Height/Length [...] pain, # 12 tab(s), Refills(s) 0, Pharmacy: [facility]/pharmacy #[id number], 165, cm, 11/22/22 19:18:00 EDT, Height/Length [...] procedure, # 2 tab(s), Refills(s) 0, Pharmacy: [facility]/pharmacy #[id number], 165, cm, 05/18/21 11:56:00 EST, Height/Length Dosing, 100, kg, 05/16/21 9:5... 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 09-12-2023 [facility] Telephone (BRCRMN) ----- SULLY ENRIQUEZ ([id number]) 1990 F Date Time Provider Department 09/12/23 FRANCHESCA MAN [facility] During your visit today, we recorded the [...] Order(s):CONSULT TO GENERAL SURGERY [9011] Order #: [id number]: 1 FUTURE Prescriptions as of 09/12/2023 - ALPRAZolam (XANAX) 1 mg tablet Take 1 mg by mouth twice daily as needed. Problem List As Of Date 09/12/2023 Noted Resolved Seizure (HCC) [R56.9] 03/06/2021 Headaches [R51.9] 03/07/2021 Encounter Status:Closed by FRANCHESCA MAN on 09/12/23 [facility] SULLY ENRIQUEZ ([id number]) 1990 F Date Time Provider Department 09/11/23 [facility]ESCA MAN [facility] During your visit today, we recorded the [...] Encounter Status:Closed by FRANCHESCA MAN on 09/11/23 [facility] Telephone (RADMN) ----- SULLY ENRIQUEZ ([id number]) 1990 F Date Time Provider Department 09/11/23 [...] Status:Closed by LOU MILLER on 09/11/23 [facility] DBT Breast - right diagnosti c for implanton 09-08-2023 * * *Final Report* * * DATE OF EXAM: Sep 08 2023 2:52PM [facility] 0629 - SAJI DIAG W DOMINIC RT / PROCEDURE REASON: multiple diagnoses * * * * Physician Interpretation * * * * RESULT: #[id number] - SAJI DIAG W DOMINIC RT #[id number] - [facility] US BIOPSY BREAST RT ULTRASOUND [...] Almanzar performed the entire procedure without an technical administrative assistant. Audible Time Out Time: 1420 Procedure [...] for pathological analysis. DIVISION OF RADIOLOGY Provider, [facility] - 09/08/2023 * * *Final Report* * * DATE OF EXAM: Sep 08 2023 2:52PM [facility] 0629 - SAJI DIAG W DOMINIC RT / PROCEDURE REASON: multiple diagnoses * * * * Physician Interpretation * * * * RESULT: #[id number] - [facility] DIAG W DOMINIC RT #[id number] - [facility] US BIOPSY BREAST RT ULTRASOUND GUIDED BIOPSY [...] Almanzar performed the entire procedure without an technical administrative assistant. Audible Time Out Time: 1420 Procedure Start Time: 1421 Procedure Stop Time: 1440 RIGHT ultrasound-guided right breast biopsy of a 2cm mass at 8:00 4-5cmFN - HYDROMARK open coil clip placed. Correlation is made to exams dated: 08/07/2023 ultrasound - [facility] and 06/25/2023 mammogram. An [...] location, four cores were obtained using a Syntricity biopsy device. A OncoPepmark open coil clip was inserted into the [...] become available. Lea Almanzar M.D., jr/aracely:09/08/2023 16:24:26 Sales Management Trainee(s): RT Mane(Jd)(M), The [facility] [place] Multiple national specialty organizations have released breast cancer screening guidelines for women at average risk for developing breast cancer - guidelines that are based on both evidence and opinion, yet differ on when to start and how often to screen for breast cancer. With representation from Breast Imaging, Internal Medicine, Women's Health, Family Medicine, and Medical/Surgical Oncology, the [facility] has carefully reviewed the data and reached [...] their providers when to stop screening mammograms. Transmission Calibration Engineer: Aracely Transcribe Date/Time: Sep 08 2023 2:52P Dictated by : LEA ALMANZAR MD This examination was interpreted and the report reviewed and electronically signed by: LEA ALMANZAR MD on Sep 08 2023 4:24PM [facility] SAJI DIAG W DOMINIC RTon 024 SAJI DIAG W DOMINIC RT * * *Final Report* * * * * * SEE BOTTOM OF REPORT FOR ADDENDED TEXT * * * DATE OF EXAM: Sep 08 2023 2:52PM [facility] 0629 - SAJI DIAG W DOMINIC RT / PROCEDURE REASON: multiple diagnoses * * * * Physician Interpretation * * * * RESULT: FINAL REPORT #[id number] - SAJI DIAG W DOMINIC RT #[id number] - [facility] US BIOPSY BREAST RT ULTRASOUND GUIDED BIOPSY [...] Almanzar performed the entire procedure without an technical administrative assistant. Audible Time Out Time: 1420 Procedure [...] obtained using a BARD biopsy device. A Splash.FM open coil clip was inserted into the [...] surgical consultation. Lea Almanzar M.D., jr/aracely:09/11/2023 14:32:49 Sales Management Trainee(s): RT Mane(R)(M), [facility] [place] Multiple national specialty organizations have released breast cancer screening guidelines for women at average risk for developing breast cancer - guidelines that are based on both evidence and opinion, yet differ on when to start and how often to screen for breast cancer. With representation from Breast Imaging, Internal Medicine, Women's Health, Family Medicine, and Medical/Surgical Oncology, the [facility] has carefully reviewed the data and reached [...] their providers when to stop screening mammograms. Transmission Calibration Engineer: (more content not included)... Normal [facility] US BIOPSY BREAST RTon [facility] US BIOPSY BREAST RT * * *Final Repor t* * * * * * SEE BOTTOM OF REPORT FOR ADDENDED TEXT * * * DATE OF EXAM: Sep 08 2023 2:52PM [facility] 0598 - [facility] US BIOPSY BREAST RT / PROCEDURE REASON: multiple diagnoses * * * * Physician Interpretation * * * * RESULT: FINAL REPORT #[id number] - [facility] DIAG W DOMINIC RT #[id number] - [facility] US BIOPSY BREAST RT ULTRASOUND GUIDED BIOPSY [...] Almanzar performed the entire procedure without an technical administrative assistant. Audible Time Out Time: 1420 Procedure Start Time: 1421 Procedure Stop Time: 1440 RIGHT ultrasound-guided right breast biopsy of a 2cm mass at 8:00 4-5cmFN - HYDROMARK open coil clip placed. Correlation is made to exams dated: 08/07/2023 [facility] - [facility] [place] and 06/25/2023 mammogram. An ultrasound guided biopsy [...] obtained using a BARD biopsy device. A Splash.FM open coil clip was inserted into the [...] surgical consultation. Lea Almanzar M.D., jr/aracely:09/11/2023 14:32:49 Sales Management Trainee(s): RT Mane(R)(M), The [facility] [place] Multiple national specialty organizations have released breast cancer screening guidelines for women at average risk for developing breast cancer - guidelines that are based on both evidence and opinion, yet differ on when to start and how often to screen for breast cancer. With representation from Breast Imaging, Internal Medicine, Women's Health, Family Medicine, and Medical/Surgical Oncology, the [facility] has carefully reviewed the data and reached [...] mammograms. Transcriptio (more content not included)... Normal [facility] No Panel Informationon 09-07 IMPRESSION: ULTRASOU ND GUIDED BIOPSY Ultrasound guided biopsy of the 2 cm mass in the right breast at 8 o'clock 4 cm from the nipple with placement of a clip was successful with no apparent post procedure complications. Waiting for pathology results. A final report will be issued when these become available. Lea Almanzar M.D., jr/aracely:09/08/2023 16:24:26 Sales Management Trainee(s): RT Mane(R)(M), The [facility] [place] Multiple national specialty organizations have released breast cancer screening guidelines for women at average risk for developing breast cancer - guidelines that are based on both evidence and opinion, yet differ on when to start and how often to screen for breast cancer. With representation from Breast Imaging, Internal Medicine, Women's Health, Family Medicine, and Medical/Surgical Oncology, the [facility] has carefully reviewed the data and reached [...] their providers when to stop screening mammograms. Transmission Calibration Engineer: Aracely Transcribe Date/Time: Sep 08 2023 2:52P Dictated by : LEA ALMANZAR MD This examination was interpreted and the report reviewed and electronically signed by: LEA ALMANZAR MD on Sep 08 2023 4:24PM [facility] DIVISION OF RADIOLOGY Radiology Study observation (narrative) [facility] No Panel InformationOrdered By: Ccf Provider on 09-08-2023 [facility] PT EDon 09-08-2023 PT ED HNO ID: [id number] Author: MARITZA RODNEY RT(R) Service: ? Author [...] MATERIAL: Homegoing instructions REFERRAL (RECOMMENDATION): None [facility] SURGICAL PATHOLOGYon 024 CASE REPORT [facility] Comment on above: Order Comment: Speci men Type: TISSUE SPECIMEN Ordering Facility: [facility] Address: [address] [place] [address] Result Comment: Surg [facility] Pathology Report Case: [id number] Authorizing Provider: Lea Almanzar MD Collected: 09/08/2023 02:04 PM Ordering Location: Mammography Received: 09/08/2023 07:51 PM Pathologist: Pat Silveira MD Specimen: Breast, Right, Core Biopsy, 8:00 4-5cmfn 2cm mass ultrasound biopsy with hydromark open coil clip Performed By: #### S #### [facility] CLIA [id number] [address] [place] [address] [place] [facility] CLIA [id number] [address] [place] [address] FINAL DIAGNOSIS Normal [facility] Comment on above: Order Comment: Speci men Type: TISSUE SPECIMEN Ordering Facility: [facility] Address: [address] [place] [address] Result Comment: A. R ight breast at 8 o'clock, 4-5 cm from nipple, ultrasound-guided core biopsy with coil clip placement: - Fibroadenoma. Performed By: #### S #### [facility] CLIA [id number] [address] [place] [address] OF [facility] CLIA [id number] [address] [place] [address] OF [place] FINAL PERFORMING LAB Normal [facility] Comment on above: Order Comment: Speci men Type: TISSUE SPECIMEN Ordering Facility: [facility] Address: [address] [place] [address] Result Comment: Diag nostic interpretation performed at [facility], [address] [place] [address] CLIA# [id number] Senior [employer] Parachutist: Columba Villasenor M.D. Performed By: #### S #### [facility] CLIA [id number] [address] [place] [address] OF [facility] CLIA [id number] [address] [place] [address] GROSS DESCRIPTION Normal [facility] Comment on above: Order Comment: Speci men Type: TISSUE SPECIMEN Ordering Facility: [facility] Address: [address] [place] [address] Result Comment: A. B reast, Right, Core [...] By: #### S #### [facility] CLIA [id number] [address] [place] [address] [place] [facility] CLIA [id number] [address] [place] Guidance for biopsy of Br east - righton 09-08-2023 * * *Final Report* * * DATE OF EXAM: Sep 08 2023 2:52PM [facility] 0598 - [facility] US BIOPSY BREAST RT / PROCEDURE REASON: multiple diagnoses * * * * Physician Interpretation * * * * RESULT: #[id number] - [facility] DIAG W DOMINIC RT #[id number] - [facility] US BIOPSY BREAST RT ULTRASOUND GUIDED BIOPSY [...] Almanzar performed the entire procedure without an technical administrative assistant. Audible Time Out Time: 1420 Procedure [...] for pathological analysis. DIVISION OF RADIOLOGY Provider, [facility] - 09/08/2023 * * *Final Report* * * DATE OF EXAM: Sep 08 2023 2:52PM [facility] 0598 - [facility] US BIOPSY BREAST RT / PROCEDURE REASON: multiple diagnoses * * * * Physician Interpretation * * * * RESULT: #[id number] - [facility] DIAG W DOMINIC RT #[id number] - [facility] US BIOPSY BREAST RT ULTRASOUND GUIDED BIOPSY [...] Almanzar performed the entire procedure without an technical administrative assistant. Audible Time Out Time: 1420 Procedure Start Time: 1421 Procedure Stop Time: 1440 RIGHT ultrasound-guided right breast biopsy of a 2cm mass at 8:00 4-5cmFN - HYDROMARK open coil clip placed. Correlation is made to exams dated: 08/07/2023 [facility] mamm[facility]. An ultrasound guided biopsy [...] location, four cores were obtained using a Syntricity biopsy device. A Hydromark open coil clip [...] become available. Lea Almanzar M.D., jr/aracely:09/08/2023 16:24:26 Sales Management Trainee(s): RT Mane(R)(M), The [facility] [place] Multiple national specialty organizations have released breast cancer screening guidelines for women at average risk for developing breast cancer - guidelines that are based on both evidence and opinion, yet differ on when to start and how often to screen for breast cancer. With representation from Breast Imaging, Internal Medicine, Women's Health, Family Medicine, and Medical/Surgical Oncology, the [facility] has carefully reviewed the data and reached [...] their providers when to stop screening mammograms. Transmission Calibration Engineer: Aracely Transcribe Date/Time: Sep 08 2023 2:52P Dictated by : LEA ALMANZAR MD This examination was interpreted and the report reviewed and electronically signed by: LEA ALMANZAR MD on Sep 08 2023 4:24PM [facility] Laboratory - Chemistry and C hemistry - challengeon 09-02-2023 Free T4 [Mass/Vol] 0.98 ng/dL 0.76-1.46 [facility] TSH Qn 3.388 m[IU]/L 0.358-3.740 [facility] No Panel Informationon 09-01 Free Triiodothyronine 2.79 pg/mL 2.18-3.98 [facility] CNPNon 08-11-2023 CNPN Telephone (BRCRMN) ----- SULLY ENRIQUEZ ([id number]) 1990 F Date Time Provider Department 08/11/23 [facility] During your visit today, we recorded the [...] Status:Closed by FRANCHESCA MAN on 08/11/23 [facility] CNOVon 08-07-2023 CNOV Office Visit (BRCRMN ) ----- SULYL ENRIQUEZ ([id number]) 1990 F Date Time Provider Department 08/07/23 10:30 AM [facility] your visit today, we recorded the following information about you: Weight Height 105.2 kg 1.651 m Franchesca Man PA-C 08/07/2023 2:26 PM Signed MEDICAL BREAST PATIENT NAME: Sully Enriquez 08/07/2023 REFERRAL: She is self referred for an opinion regarding right breast biopsy. HISTORY of PRESENT ILLNESS: Sully Enriquez is a 33 year old year old premenopausal woman who presents to the [facility] [place] today for second opinion of right breast [...] seen for her breast related issues at [facility] with care as follows: 06/25/23: Diagnostic bilateral DBT and US at [facility]): - RIGHT breast 8oclock 4-5cmfn hypoechoic 2cm [...] (232 lb) (more content not included)... Normal [facility] [employer] BREAST Check RTon 08-06 [facility] [employer] BREAST Check RT * * *Final Report* * * DATE OF EXAM: Aug 07 2023 12:08PM FLASH 0594 - [facility] [employer] RT / PROCEDURE REASON: multiple diagnoses * * * * Physician Interpretation * * * * RESULT: #[id number] - [facility] [employer] BREAST Check RT LIMITED ULTRASOUND OF RIGHT BREAST: 08/07/2023 [...] breast cancer. Janes Winston M.D. ns/:08/07/2023 13:24:03 Sales Management Trainee(s): RT Mirtha(R)(M), The [facility] [place] Ultrasound BI-RADS: 2 Benign finding Multiple national specialty organizations have released breast cancer screening guidelines for women at average risk for developing breast cancer - guidelines that are based on both evidence and opinion, yet differ on when to start and how often to screen for breast cancer. With representation from Breast Imaging, Internal Medicine, Women's [facility], Family Medicine, and Medical/Surgical Oncology, the [facility] has carefully reviewed the data and reached [...] their providers when to stop screening mammograms. Transmission Calibration Engineer: Aracely Transcribe Date/Time: Aug 07 2023 11:56A Dictated by : JANES WINSTON MD This examination was interpreted and the report reviewed and electronically signed by: JANES WINSTON MD on Aug 07 2023 1:24PM EST [id number] [facility] US Breast - right limitedon 08-07-2023 [facility] CNPNon 07-30-2023 CNPN Telephone (BRBD) ----- ZOESULLY Alyse ([id number]) 1990 F Date Time Provider Department 07/30/23 [...] a second opinion. [facility] [place] I will reach out to them to retrieve any information and imaging needed for her appointment 08/07/23 with Franchesca FINNEGAN in the Breast Center [facility] contact number is [phone]. Kenia Peters MA Allergies As of Date: [...] Status:Closed by KENIA PETERS on 07/30/23 [facility] Basophils Auto (Bld) [#/Vol] on 07-25-2023 Basophils (Bld) [#/Vol] 0.0 10 3/uL 0.0-0.1 [facility] Basophils/100 WBC Auto (Bld) on 07-25-2023 Basophils/100 WBC (Bld) 0.3 % 0.2-2.0 F [facility] CNPNon 07-25-2023 CNPN Telephone (BRCRBD) ----- SULLY ENRIQUEZ ([id number]) 1990 F Date Time Provider Department 07/25/23 FRANCHESCA MAN BRTIMOTHY During your visit today, we recorded the following information about you: Kenia Peters MA 07/25/2023 12:59 PM Signed Called patient to discuss her upcoming appointment with Franchesca Man in the breast center. I left a message asking patient to call me back @[phone]. Kenia Peters MA Allergies As of Date: [...] Encounter Status:Closed by KENIA PETERS on 07/25/23 [facility] Eosinophils/100 WBC Auto (Bl d)on 07-25-2023 Eosinophils/100 WBC (Bld) 0.5 % 0.9-7.0 [facility] Erythrocyte distribution wid th Auto (RBC) [Ratio]on 07-25-2023 Erythrocyte distribution width (RBC) [Ratio] 12.0 % 11.0-15.0 [facility] Estimated glomerular filtrat ion rate (GFR) non- Americanon 07-25-2023 GFR/1.73 sq M.predicted among non-blacks MDRD (S/P/Bld) [Vol rate/Area] mL/min/{1.73_m2} >=60 [facility] Globulin Calc (S) [Mass/Vol] on 07-25-2023 Globulin (S) [Mass/Vol] 3.4 g/dL F [facility] HCG ( test) IA.rapi d Ql (U)on 07-25-2023 Beta HCG ( test) Ql (U) Negative NEGATIVE [facility] Hematocrit Auto (Bld) [Volum e fraction]on 07-25-2023 Hematocrit (Bld) [Volume fraction] 44.2 % 36.0-48.0 [facility] Hemoglobin [Mass/volume] in Bloodon 07-25-2023 Hemoglobin (Bld) [Mass/Vol] 14.5 g/dL 12.0-16.0 [facility] Laboratory - Chemistry and C hemistry - challengeon 07-25-2023 Albumin [Mass/Vol] 4.0 g/dL 3.4-5.0 [facility] ALP [Catalytic activity/Vol] 61 U/L 46-116 [facility] ALT [Catalytic activity/Vol] 25 U/L 14-59 [facility] AST [Catalytic activity/Vol] 13 U/L 15-37 [facility] Bilirubin [Mass/Vol] 0.6 mg/dL 0.2-1.0 [facility] Calcium [Mass/Vol] 8.8 mg/dL 8.5-10.1 [facility] Chloride [Moles/Vol] 103 mmol/L 98-107 [facility] CO2 [Moles/Vol] 24.0 mmol/L 21.0-32.0 [facility] Creatinine [Mass/Vol] 0.88 mg/dL 0.55-1.02 [facility] GFR/1.73 sq M.predicted MDRD (S/P/Bld) [Vol rate/Area] mL/min/{1.73_m2} >=60 [facility] Glucose [Mass/Vol] 99 mg/dL 74-106 [facility] Lipase [Catalytic activity/Vol] 23.0 U/L 16.0-77.0 [facility] Potassium [Moles/Vol] 3.9 mmol/L 3.5-5.1 [facility] Protein [Mass/Vol] 7.4 g/dL 6.4-8.2 [facility] Sodium [Moles/Vol] 138 mmol/L 136-145 [facility] Urea nitrogen [Mass/Vol] 10.0 mg/dL 7.0-18.0 [facility] Urea nitrogen/Creatinine [Mass ratio] 11.4 mg/mg [facility] Laboratory - Hematology and Cell countson 07-25-2023 Immature granulocytes/100 WBC (Bld) 0.3 % 0.0-0.5 [facility] - Microbiology an d Antimicrobial susceptibilityon 07-25-2023 SARS-CoV-2 (COVID-19) RNA AZ+probe Ql (Unsp spec) Negative NEGATIVE [facility] Comment on above: This test has not [...] Auto (Bld) [#/Vol] 11.0 10 3/uL 4.0-11.0 [facility] Lymphocytes Auto (Bld) [#/Vo l]on 07-25-2023 Lymphocytes (Bld) [#/Vol] 0.8 10 3/uL 1.2-3.8 [facility] Lymphocytes/100 WBC Auto (Bl d)on 07-25-2023 Lymphocytes/100 WBC (Bld) 7.5 % 20.5-60.0 [facility] MCH Auto (RBC) [Entitic mass ]on 07-25-2023 MCH (RBC) [Entitic mass] 31.6 pg 26.7-34.0 [facility] MCHC Auto (RBC) [Mass/Vol]on 07-25-2023 MCHC (RBC) [Mass/Vol] 32.8 g/dL 29.9-35.2 [facility] MCV Auto (RBC) [Entitic vol] on 07-25-2023 MCV (RBC) [Entitic vol] 96.3 fL 81.0-99.0 [facility] Monocytes Auto (Bld) [#/Vol] on 07-25-2023 Monocytes (Bld) [#/Vol] 0.4 10 3/uL 0.3-0.8 [facility] Monocytes/100 WBC Auto (Bld) on 07-25-2023 Monocytes/100 WBC (Bld) 3.9 % 1.7-12.0 [facility] Neutrophils Auto (Bld) [#/Vo l]on 07-25-2023 Neutrophils (Bld) [#/Vol] 9.7 10 3/uL 1.4-6.5 [facility] Neutrophils/100 WBC Auto (Bl d)on 07-25-2023 Neutrophils/100 WBC (Bld) 87.5 % 43.0-75.0 [facility] No Panel Informationon 07-24 Bedside Influenza Type A Antigen Negative [facility] Comment on above: Negative for Flu A p rotein antigen. Infection due to Flu Acannot be ruled out. Flu A antigen in the sample may bebelow the detection limit of the test. Bedside Influenza Type B Antigen Negative [facility] Comment on above: Negative for Flu B p rotein antigen. Infection due to Flu Bcannot be ruled out. Flu B antigen in the sample may bebelow the detection limit of the test. Eosinophils # (Auto) 0.1 10 3/uL 0.0-0.7 [facility] Immature Granulocyte # (Auto) 0.03 10 3/uL 0.00-0.03 [facility] Platelet mean volume Auto (B ld) [Entitic vol]on 07-25-2023 Platelet mean volume (Bld) [Entitic vol] 10.4 fL 9.5-13.5 [facility] Platelets Auto (Bld) [#/Vol] on 07-25-2023 Platelets (Bld) [#/Vol] 194 10 3/uL 150-450 [facility] RBC Auto (Bld) [#/Vol]on RBC (Bld) [#/Vol] 4.59 10 6/uL 4.20-5.40 [facility] Serum or plasma albumin/glob ulin mass ratioon 07-25-2023 Albumin/Globulin [Mass ratio] 1.2 {ratio} [facility] Serum or plasma anion gap de terminationon 07-25-2023 Anion gap [Moles/Vol] 14.9 mmol/L [facility] Mitchel 07-07-2023 L Specimen: Received: 07/07/23 [facility] Num: [id number] Spec Type: Surgical Subm Dr: Pablo Lindo II, MD Tissues: A BREAST CORE NO CALCS (RT BREAST TISSUE) Procedures: HE/2, Gross/Micro L4, AE1-AE3, CK5 6 Age/ Patient Sex Location Account Attending Physician Sully Enriquez 33/F KYM [id number] Lucero Belle DO SPEC NUM: RECD: 07/07/23 STATUS: ALEJANDRA SALDIVAR NUM: [id number] MEGAN: 07/07/[address]: Pablo Lindo II, MD ENTERED: 07/07/[address] [facility] [address]: Lucero Belle DO SPEC TYPE: Surgical [...] Time: 0.08 Formalin Fixation Time: 6.62 Specimen: [id number] Received: 07/07/23 Status: ALEJANDRA Marvin Num: [id number] Spec Type: Surgical Subm Dr: Pablo Lindo II, MD Tissues: A BREAST CORE NO CALCS (RT BREAST TISSUE) Procedures: HE/2, Gross/Micro L4, AE1-AE3, CK5 6 Patient: Sully Enriquez [id number] (Continued) Specimen: Received: 07/07/23 (Continued) Signed (signature on file) Mireya Garcia MD 07/09/231648 Specimen: Received: 07/07/23 Status: ALEJANDRA Wong Num: [id number] Spec Type: Surgical Subm Dr: Pablo Lindo II, MD Tissues: A BREAST CORE NO CALCS (RT BREAST TISSUE) Procedures: HE/2, Gross/Micro L4, AE1-AE3, CK5 6 Patient: Sully Enriquez [id number] (Continued) Specimen: Received: 07/07/23 (Continued) CPT Codes 25096 Specimen: Received: 07/07/23 Status: ALEJANDRA Wong Num: [id number] Spec Type: Surgical Subm Dr: Pablo Lindo II, MD Tissues: A BREAST CORE NO CALCS (RT BREAST TISSUE) Procedures: HE/2, Gross/Micro L4, AE1-AE3, CK5 6 Patient: Sully Enriquez [id number] (Continued) Signed (signature on file) Mireya Garcia MD 07/09/23 1649 Normal [facility] US breast ndl core biopsy RT on 07-07-2023 US breast ndl core biopsy RT [facility] [address] [place] [address] Ultrasound Report Signed Patient: Sully Enriquez MR#: [id number] : 1990 Acct:[id number] Age/Sex: 33 / F ADM Date: 07/07/23 Loc: [facility] Room: Type: [facility] Attending Dr: Lucero Belle DO Ordering Provider: Lucero Belle DO Date of Service: 07/07/23 US/US breast ndl core biopsy RT: R92.8 ([id number]) MM/MM post biopsy RT w/CAD: POST U/S [...] of the right breast was performed by medical technologist clinical as well as myself. At the 8:00 [...] MD 07/07/23 1155 Signed By: 07/10/23 0836 [facility] BI MAMMOGRAM DIAGNOSTIC DOMINIC SYNTHESIS [...] IS VERY IMPORTANT TO YOUR HEALTH. THE [employer] GUIDELINES RECOMMEND THAT WOMEN 40 YEARS OF AGE AND OLDER SHOULD HAVE A MAMMOGRAM EVERY YEAR. A REMINDER LETTER WILL BE SENT AT THE APPROPRIATE TIME. ELECTRONICALLY SIGNED BY: Sam Fox, DO Abnormal Not Available BI [facility] BI US BREAST COMPLETE BILATERAL This [...] IS VERY IMPORTANT TO YOUR HEALTH. [employer] [place] GUIDELINES RECOMMEND THAT WOMEN 40 YEARS OF AGE AND OLDER SHOULD HAVE A MAMMOGRAM EVERY YEAR. A REMINDER LETTER WILL BE SENT AT THE APPROPRIATE TIME. ELECTRONICALLY SIGNED BY: Sam Fox, DO Abnormal Not Available Alanine aminotransferase [En zymatic activity/volume] in Serum or PlasmaOrdered By: Bhanu Alvarez on 06-03-2023 ALT [Catalytic activity/Vol] 19 U/L 7-52 [facility] Comment on above: Order Comment: Adithya gramajo-requested redraw @ 1442. MLG Performed By: #### C MP, PRL, CBC ####[facility] [id number] Albumin [Mass/volume] in Ser um or Plasma by Bromocresol green (BCG) dye binding methoOrdered By: Bhanu Alvarez on 06-03-2023 Albumin BCG dye [Mass/Vol] 4.6 g/dL 3.5-5.7 [facility] Alkaline phosphatase [Enzyma tic activity/volume] in Serum or PlasmaOrdered By: Bhanu Alvarez on 06-03-2023 ALP [Catalytic activity/Vol] 46 U/L 34-104 [facility] Comment on above: Order Comment: Adithya gramajo-requested redraw @ 1442. MLG Performed By: #### C MP, PRL, CBC ####[facility] [id number] [place] [id number] [facility] Amphetamine Screen Ql (U)Ord ered By: Bhanu Alvarez on 06-03-2023 Amphetamines Ql (U) Negative Negative [facility] Aspartate aminotransferase [ Enzymatic activity/volume] in Serum or PlasmaOrdered By: Bhanu Alvarez on 06-03-2023 AST [Catalytic activity/Vol] 14 U/L [facility] Comment on above: Order Comment: Hemol yzed-requested redraw @ 1442. MLG Performed By: #### C MP, PRL, CBC ####[facility] [id number] Barbiturates [Presence] in U rine by Screen methodOrdered By: Bhanu Alvarez on 06-03-2023 Barbiturates Screen Ql (U) Negative Negative [facility] Basophils Auto (Bld) [#/Vol] Ordered By: Bhanu Alvarez on 06-03-2023 Basophils (Bld) [#/Vol] 0.0 10*3/uL 0.0-0.2 [facility] Basophils/100 WBC Auto (Bld) Ordered By: Bhanu Alvarez on 06-03-2023 Basophils/100 WBC (Bld) 0.6 % . [facility] Benzodiazepines Screen Ql (U )Ordered By: Bhanu Alvarez on 06-03-2023 Benzodiazepines Ql (U) Positive Negative [facility] Benzoylecgonine [Presence] i n Urine by Screen methodOrdered By: Bhanu Alvarez on 06-03-2023 Benzoylecgonine Screen Ql (U) Negative Negative [facility] Bilirubin Test strip Ql (U)O rdered By: Bhanu Alvarez on 06-03-2023 Bilirubin Ql (U) Negative Negative [facility] Bilirubin.total [Mass/volume ] in Serum or PlasmaOrdered By: Bhanu Alvarez on 06-03-2023 Bilirubin [Mass/Vol] 0.4 mg/dL 0.3-1.0 [facility] Comment on above: Order Comment: Hemol yzed-requested redraw @ 1442. MLG Performed By: #### C MP, PRL, CBC ####[facility] [id number] angio chest PE protocolon 06-03-2023 CT angio chest PE protocol [facility] [place] [address] [place] [address] CT Scan Report Signed Patient: Sully Enriquez MR#: [id number] : 1990 Acct:[id number] Age/Sex: 33 / F ADM Date: 06/03/23 Loc: ER Room: Type: [facility] ER Attending Dr: Copies to: Bhanu Alvarez [...] Turner Jr., D.O.06/03/2023 5:48 PM Dictation Location: [place] [address] Transcribed By: [facility] 06/03/231747 Dictated By: Luis Turner Jr, DO 06/03/231746 Signed By: 06/03/231747 Normal [facility] Calcium [Mass/volume] in Ser um or PlasmaOrdered By: Bhanu Alvarez on 06-03-2023 Calcium [Mass/Vol] 9.5 mg/dL 8.6-10.3 [facility] Comment on above: Order Comment: Hemol yzed-requested redraw @ 1442. MLG Performed By: #### C MP, PRL, CBC ####[place] [id number] [facility] Cannabinoids [Presence] in U rine by Screen methodOrdered By: Bhanu Alvarez on 06-03-2023 Cannabinoids Screen Ql (U) Negative Negative [facility] Comment on above: These are unconfirme d results and should not be used for legal purposes. Drug Cut-Off Concentration: AMPH 1000 ng/mL WILIAN 200 ng/mL LESLY 200 ng/mL COCM 300 ng/mL OP 300 ng/mL PCP 25 ng/mL THC 20 ng/mL Carbon dioxide, total [Moles /volume] in Serum or PlasmaOrdered By: Bhanu Alvarez on 06-03-2023 CO2 [Moles/Vol] 22.4 mmol/L 21.0-31.0 [facility] Comment on above: Order Comment: Hemol yzed-requested redraw @ 1442. MLG Performed By: #### C MP, PRL, CBC ####[place] [id number] [facility] Chloride [Moles/volume] in S juan carlos or PlasmaOrdered By: Bhanu Alvarez on 06-03-2023 Chloride [Moles/Vol] 108 mmol/L 98-107 [facility] Comment on above: Order Comment: Hemol yzed-requested redraw @ 1442. MLG Performed By: #### C MP, PRL, CBC ####[place] [id number] [facility] Color Auto (U)Ordered By: Sameer Alvarez on 06-03-2023 Color (U) Yellow Yellow [facility] Complete Blood Count Auto Di ffon 06-03-2023 Basophils (Bld) [#/Vol] 0.0 10*3/uL Normal 0.0-0.2 [facility] Comment on above: Result Comment: PERF ORMED BY: [facility] [address] TONYJean PierreHernandez [place] [id number] PATHOLOGIST TIRE BAGGER LEV HERNÁNDEZ M.D. Performed By: #### C MP, PRL, CBC ####[address] [address] [facility] Basophils/100 WBC (Bld) 0.6 % Normal . [facility] Comment on above: Performed By: #### C MP, PRL, CBC ####[address] [address] [facility] Eosinophils (Bld) [#/Vol] 0.1 10*3/uL Normal 0.0-0.45 [facility] Comment on above: Performed By: #### C MP, PRL, CBC ####[place] [id number] [facility] Eosinophils/100 WBC (Bld) 2.1 % Normal . [facility] Comment on above: Performed By: #### C MP, PRL, CBC ####[place] [id number] [facility] Erythrocyte distribution width (RBC) [Ratio] 12.5 % Normal 11.9-15.3 [facility] Comment on above: Performed By: #### C MP, PRL, CBC ####[address] [address] [facility] Hematocrit (Bld) [Volume fraction] 41.5 % Normal 34.0-46.4 [facility] Comment on above: Performed By: #### C MP, PRL, CBC ####[address] [address] [facility] Hemoglobin (Bld) [Mass/Vol] 14.1 g/dL Normal 11.8-15.4 [facility] Comment on above: Performed By: #### C MP, PRL, CBC ####[address] [address] [place] Lymphocytes (Bld) [#/Vol] 2.6 10*3/uL Normal 1.00-4.8 [facility] Comment on above: Performed By: #### C MP, PRL, CBC ####[place] [id number] [place] Lymphocytes/100 WBC (Bld) 38.0 % Normal . [facility] Comment on above: Performed By: #### C MP, PRL, CBC ####[address] MCH (RBC) [Entitic mass] 31.8 pg Normal 24.7-34.3 [facility] Comment on above: Performed By: #### C MP, PRL, CBC ####[address] MCV (RBC) [Entitic vol] 93.9 fL Normal 80-100 [facility] Comment on above: Performed By: #### C MP, PRL, CBC ####[address] Mean Corpuscular HGB Conc 33.9 g/dL Normal 32.0-35.0 [facility] Comment on above: Performed By: #### C MP, PRL, CBC ####[address] Monocytes (Bld) [#/Vol] 0.4 10*3/uL Normal 0.0-0.8 [facility] Comment on above: Performed By: #### C MP, PRL, CBC ####[address] Monocytes/100 WBC (Bld) 18.41 % Normal 0.00-20.00 [facility] Comment on above: Performed By: #### C MP, PRL, CBC ####[address] Monocytes/100 WBC (Bld) 6.5 % Normal . [facility] Comment on above: Performed By: #### C MP, PRL, CBC ####[address] Neutrophils (Bld) [#/Vol] 3.6 10*3/uL Normal 1.8-7.7 [facility] Comment on above: Performed By: #### C MP, PRL, CBC ####[address] Neutrophils/100 WBC (Bld) 52.8 % Normal . [facility] Comment on above: Performed By: #### C MP, PRL, CBC ####[address] NRBC% 0.0 /100{WBC} Normal 0-0.5 [facility] Comment on above: Performed By: #### C MP, PRL, CBC ####[address] Platelet mean volume (Bld) [Entitic vol] 9.3 fL Normal 6.3-10.7 [facility] Comment on above: Performed By: #### C MP, PRL, CBC ####[address] Platelets (Bld) [#/Vol] 196 10*3/uL Normal 150-450 [facility] Comment on above: Performed By: #### C MP, PRL, CBC ####[address] RBC (Bld) [#/Vol] 4.42 10*6/uL Normal 3.60-5.00 [facility] Comment on above: Performed By: #### C MP, PRL, CBC ####[address] WBC (Bld) [#/Vol] 6.8 10*3/uL Normal 3.8-11.6 [facility] Comment on above: Performed By: #### C MP, PRL, CBC ####[address] Comprehensive Metabolic Pane mitchel 06-03-2023 Albumin [Mass/Vol] 4.6 g/dL Normal 3.5-5.7 [facility] Comment on above: Order Comment: Hemol yzed-requested redraw @ 1442. MLG Performed By: #### C MP, PRL, CBC ####[address] Creatinine Clr Calc Pharmacy 110.22 Normal [facility] Comment on above: Order Comment: Hemol yzed-requested redraw @ 1442. MLG Performed By: #### C MP, PRL, CBC ####[place] [id number] [place] [address] [place] GFR/1.73 sq M.predicted MDRD (S/P/Bld) [Vol rate/Area] mL/min/{1.73_m2} Normal [facility] Comment on above: Order Comment: Hemol yzed-requested redraw @ 1442. MLG Performed By: #### C MP, PRL, CBC ####[address] [address] [facility] Creatinine [Mass/volume] in Serum or PlasmaOrdered By: Bhanu Alvarez on 06-03-2023 Creatinine [Mass/Vol] 0.86 mg/dL 0.60-1.20 [facility] Comment on above: Order Comment: Hemol yzed-requested redraw @ 1442. MLG Performed By: #### C MP, PRL, CBC ####[address] [address] [facility] D-Dimer High Sensitivityon 0 06-03-2023 D-Dimer High Sensitivity 282 ng/mL High 0-243 [facility] Comment on above: Result Comment: The reference [...] coagulation studies. Please contact the laboratory at [phone] for redraw instructions. PERFORMED BY: [facility] [address] [place] [id number] PATHOLOGIST TIRE BAGGER LEV HERNÁNDEZ M.D. Performed By: #### D DIMER #### [facility] [address] [place] [address] Drug Screen,Urineon 06-03-19 24 Amphetamine Screen,Urine Negative Normal Negative [facility] Comment on above: Performed By: #### U HCG, URDS, UA #### [address] Barbiturate Screen,Urine Negative Normal Negative [facility] Comment on above: Performed By: #### U HCG, URDS, UA #### [facility] [address] [place] [address] Benzodiazepines Screen,Urine Positive High Negative [facility] Comment on above: Performed By: #### U HCG, URDS, UA #### [address] Cannabinoid Screen,Urine Negative Normal Negative [facility] Comment on above: Result Comment: Thes e are unconfirmed results and should not be used for legal purposes. Drug Cut-Off Concentration: AMPH 1000 ng/mL WILIAN 200 ng/mL LESLY 200 ng/mL COCM 300 ng/mL OP 300 ng/mL PCP 25 ng/mL THC 20 ng/mL PERFORMED BY: [place] [address] PATHOLOGIST TIRE BAGGER LEV HERNÁNDEZ M.D. Performed By: #### U HCG, URDS, UA #### [facility] [address] [place] [address] Cocaine Screen,Urine Negative Normal Negative [facility] Comment on above: Performed By: #### U HCG, URDS, UA #### [facility] [address] [place] [address] [place] Opiate Screen,Urine Negative Normal Negative [facility] Comment on above: Performed By: #### U HCG, URDS, UA #### [facility] [address] [place] [address] Phencyclidine Screen,Urine Negative Normal Negative [facility] Comment on above: Performed By: #### U HCG, URDS, UA #### [place] [id number] [facility] ECG 12 lead ECGon 06-03-2023 ECG 12 lead ECG [facility] [place] [address] Electrocardiograph Report Signed Patient: Sully Enriquez MR#: [id number] : 1990 Acct:[id number] Age/Sex: 33 / F ADM Date: 06/03/23 Loc: ER Room: Type: [facility] ER Attending Dr: Ordering Provider: Bhanu Alvarez [...] Signed By Jose Cade DO 1547 Normal [facility] ECG 12 lead ECG [facility] Main [place] [id number] Electrocardiograph Report Signed Patient: Sully Enriquez MR#: [id number] : 1990 Acct:[id number] Age/Sex: 33 / F ADM Date: 06/03/23 Loc: ER Room: Type: [facility] ER Attending Dr: Ordering Provider: Bhanu Alvarez [...] Signed By Jose Cade DO 1547 Normal [facility] Eosinophils Auto (Bld) [#/Vo l]Ordered By: Bhanu Alvarez on 06-03-2023 Eosinophils (Bld) [#/Vol] 0.1 10*3/uL 0.0-0.45 [facility] Eosinophils/100 WBC Auto (Bl d)Ordered By: Bhanu Alvarez on 06-03-2023 Eosinophils/100 WBC (Bld) 2.1 % . [facility] Erythrocyte distribution wid th Auto (RBC) [Ratio]Ordered By: Bhanu Alvarez on 06-03-2023 Erythrocyte distribution width (RBC) [Ratio] 12.5 % 11.9-15.3 [facility] Fibrin D-dimer [Presence] in Platelet poor plasma by Latex agglutinationOrdered By: Bhanu Alvarez on 06-03-2023 Fibrin D-dimer LA Ql (PPP) 282 ng/mL 0-243 [facility] Comment on above: The reference range for [...] coagulation studies. Please contact the laboratory at [phone] for redraw instructions. Glucose [Mass/volume] in Ser um or PlasmaOrdered By: Bhanu Alvarez on 06-03-2023 Glucose [Mass/Vol] 102 mg/dL 70-100 [facility] Comment on above: ADA recommended refe rence rangeRandom Glucose Reference Range is dependent on time and content of last meal. Glucose of more than 200 mg/dL in a nonstressed, ambulatory subject supports the diagnosis of Diabetes Mellitus. Order Comment: Adithya xiong redraw @ 1442. MLG Result Comment: [place] om Glucose Reference Range is dependent on time and content of last meal. Glucose of more than 200 mg/dL in a nonstressed, ambulatory subject supports the diagnosis of Diabetes Mellitus. ADA recommended reference range Performed By: #### C MP, PRL, CBC ####[facility] [id number] [address] HCG ( test) IA.rapi d Ql (U)Ordered By: Bhanu Alvarez on 06-03-2023 HCG ( test) Ql (U) Negative [facility] HCG,Urineon 06-03-2023 Beta HCG ( test) Ql (U) Negative Normal [facility] Comment on above: Order Comment: Name Collection Type:: Clean-Voided Midstream Result Comment: PERF ORMED BY: [facility] [address] [place] [address] PATHOLOGIST TIRE BAGGER LEV HERNÁNDEZ M.D. Performed By: #### U HCG, URDS, UA #### [facility] [address] Hematocrit Auto (Bld) [Volum e fraction]Ordered By: Bhanu Alvarez on 06-03-2023 Hematocrit (Bld) [Volume fraction] 41.5 % 34.0-46.4 [facility] Hemoglobin [Mass/volume] in BloodOrdered By: Bhanu Alvarez on 06-03-2023 Hemoglobin (Bld) [Mass/Vol] 14.1 g/dL 11.8-15.4 [facility] Ketones Auto test strip (U) [Mass/Vol]Ordered By: Bhanu Alvarez on 06-03-2023 Ketones (U) [Mass/Vol] Negative Negative [facility] Leukocytes [#/volume] correc armaan for nucleated erythrocytes in Blood by Automated counOrdered By: Bhanu Alvarez on 06-03-2023 WBC corrected for nucl RBC Auto (Bld) [#/Vol] 6.8 10*3/uL 3.8-11.6 [facility] Lymphocytes Auto (Bld) [#/Vo l]Ordered By: Bhanu Alvarez on 06-03-2023 Lymphocytes (Bld) [#/Vol] 2.6 10*3/uL 1.00-4.8 [facility] Lymphocytes/100 WBC Auto (Bl d)Ordered By: Bhanu Alvarez on 06-03-2023 Lymphocytes/100 WBC (Bld) 38.0 % . [facility] MCH Auto (RBC) [Entitic mass ]Ordered By: Bhanu Alvarez on 06-03-2023 MCH (RBC) [Entitic mass] 31.8 pg 24.7-34.3 [facility] MCHC Auto (RBC) [Mass/Vol]Or dered By: Bhanu Alvarez on 06-03-2023 MCHC (RBC) [Mass/Vol] 33.9 g/dL 32.0-35.0 [facility] MCV Auto (RBC) [Entitic vol] Ordered By: Bhanu Alvarez on 06-03-2023 MCV (RBC) [Entitic vol] 93.9 fL 80-100 [facility] Monocyte distribution width [Entitic volume] in Blood by AutomatedOrdered By: Bhanu Alvarez on 06-03-2023 Monocyte distribution width Auto (Bld) [Entitic vol] 18.41 % 0.00-20.00 [facility] Monocytes Auto (Bld) [#/Vol] Ordered By: Bhanu Alvarez on 06-03-2023 Monocytes (Bld) [#/Vol] 0.4 10*3/uL 0.0-0.8 [facility] Monocytes/100 WBC Auto (Bld) Ordered By: Bhanu Alvarez on 06-03-2023 Monocytes/100 WBC (Bld) 6.5 % . [facility] Neutrophils Auto (Bld) [#/Vo l]Ordered By: Bhanu Alvarez on 06-03-2023 Neutrophils (Bld) [#/Vol] 3.6 10*3/uL 1.8-7.7 [facility] Neutrophils/100 WBC Auto (Bl d)Ordered By: Bhanu Alvarez on 06-03-2023 Neutrophils/100 WBC (Bld) 52.8 % . [facility] Nitrite Test strip Ql (U)Ord ered By: Bhanu Alvarez on 06-03-2023 Nitrite Ql (U) Negative Negative [facility] No Panel InformationOrdered By: Bhanu Alvarez on 06-03-2023 Estimated GFR (CKD-EPI) > 60.0 mL/Min [facility] Creatinine Clearance (Chem 110.22 [facility] Nucleated erythrocytes [Pres ence] in Blood by Automated countOrdered By: Bhanu Alvarez on 06-03-2023 Nucleated RBC Auto Ql (Bld) 0.0 /100{WBC} 0-0.5 [facility] Opiates [Presence] in Urine by Screen methodOrdered By: Bhanu Alvarez on 06-03-2023 Opiates Screen Ql (U) Negative Negative [facility] Phencyclidine Screen Ql (U)O rdered By: Bhanu Alvarez on 06-03-2023 Phencyclidine Ql (U) Negative Negative [facility] Platelet mean volume Auto (B ld) [Entitic vol]Ordered By: Bhanu Alvarez on 06-03-2023 Platelet mean volume (Bld) [Entitic vol] 9.3 fL 6.3-10.7 [facility] Platelets Auto (Bld) [#/Vol] Ordered By: Bhanu Alvarez on 06-03-2023 Platelets (Bld) [#/Vol] 196 10*3/uL 150-450 [facility] Potassium [Moles/volume] in Serum or PlasmaOrdered By: Bhanu Alvarez on 06-03-2023 Potassium [Moles/Vol] 3.7 mmol/L 3.5-5.1 [facility] Comment on above: Order Comment: Hemol yzed-requested redraw @ 1442. MLG Performed By: #### C MP, PRL, CBC ####[facility] [address] [place] [address] [facility] Prolactinon 06-03-2023 Prolactin 8.46 ng/mL Normal 3.34-26.72 [facility] Comment on above: Order Comment: Hemol yzed-requested redraw @ 1442. MLG Result Comment: PERF ORMED BY: [facility] [address] [id number] PATHOLOGIST TIRE BAGGER LEV HERNÁNDEZ M.D. Performed By: #### C MP, PRL, CBC ####[facility] [place] [id number] [facility] Prolactin [Mass/volume] in S juan carlos or PlasmaOrdered By: Bhanu Alvarez on 06-03-2023 Prolactin [Mass/Vol] 8.46 ng/mL 3.34-26.72 [facility] Protein Auto test strip (U) [Mass/Vol]Ordered By: Bhanu Alvarez on 06-03-2023 Protein (U) [Mass/Vol] Negative Negative [facility] Protein [Mass/volume] in Ser um or PlasmaOrdered By: Bhanu Alvarez on 06-03-2023 Protein [Mass/Vol] 7.5 g/dL 6.4-8.9 [facility] Comment on above: Order Comment: Hemol yzed-requested redraw @ 1442. MLG Performed By: #### C MP, PRL, CBC ####[place] [address] [address] RBC Auto (Bld) [#/Vol]Ordere d By: Bhanu Alvarez on 06-03-2023 RBC (Bld) [#/Vol] 4.42 10*6/uL 3.60-5.00 [facility] Serum globulin measurement b y calculation (mass/volume)Ordered By: Bhanu Alvarez on 06-03-2023 Globulin (S) [Mass/Vol] 2.9 g/dL F [facility] Comment on above: Order Comment: Hemol yzed-requested redraw @ 1442. MLG Performed By: #### C MP, PRL, CBC ####[place] [address] [address] Serum or plasma albumin/glob ulin mass ratioOrdered By: Bhanu Alvarez on 06-03-2023 Albumin/Globulin [Mass ratio] 1.6 {ratio} [facility] Comment on above: Order Comment: Hemol yzed-requested redraw @ 1442. MLG Performed By: #### C MP, PRL, CBC ####[place] [address] [address] Serum or plasma anion gap de terminationOrdered By: Bhanu Alvarez on 06-03-2023 Anion gap [Moles/Vol] 11.3 mmol/L 6.0-15.0 [facility] Comment on above: Order Comment: Hemol yzed-requested redraw @ 1442. MLG Performed By: #### C MP, PRL, CBC ####[place] [address] [address] Sodium [Moles/volume] in Ser um or PlasmaOrdered By: Bhanu Alvarez on 06-03-2023 Sodium [Moles/Vol] 138 mmol/L 136-145 [facility] Comment on above: Order Comment: Hemol yzed-requested redraw @ 1442. MLG Performed By: #### C MP, PRL, CBC ####[place] [address] [address] Specific gravity Auto test s trip (U) [Rel density]Ordered By: Bhanu Alvarez on 06-03-2023 Specific gravity (U) [Rel density] 1.010 1.001-1.030 [facility] Troponin I High Sensitivityo n 06-03-2023 Troponin I High Sensitivity < 2.3 Normal 0.0-15.0 [facility] Comment on above: Result Comment: PERF ORMED BY: [facility] [address] [place] [address] PATHOLOGIST TIRE BAGGER LEV HERNÁNDEZ M.D. Performed By: #### H S TROP #### [facility] [address] Troponin I.cardiac [Mass/vol ume] in Serum or Plasma by Detection limit <= 0.01 ng/Ordered By: Bhanu Alvarez on 06-03-2023 Troponin I.cardiac DL <= 0.01 ng/mL [Mass/Vol] < 2.3 pg/mL 0.0-15.0 [facility] Urea nitrogen [Mass/volume] in Serum or PlasmaOrdered By: Bhanu Alvarez on 06-03-2023 Urea nitrogen [Mass/Vol] 10 mg/dL 7 [facility] Comment on above: Order Comment: Adithya xiong redraw @ 1442. MLG Performed By: #### C MP, PRL, CBC ####[facility] [address] Urinalysison 06-03-2023 Appearance (U) Clear Normal Clear [facility] Comment on above: Order Comment: Name Collection Type:: Clean-Voided Midstream Performed By: #### U HCG, URDS, UA #### [facility] [address] [place] [address] [place] Bilirubin,Urine Negative Normal Negative [facility] Comment on above: Order Comment: Name Collection Type:: Clean-Voided Midstream Performed By: #### U HCG, URDS, UA #### [facility] [address] [place] [address] [place] Color (U) Yellow Normal Yellow [facility] Comment on above: Order Comment: Name Collection Type:: Clean-Voided Midstream Performed By: #### U HCG, URDS, UA #### [facility] [address] [place] [address] [place] Glucose Ql (U) Normal Normal Normal [facility] Comment on above: Order Comment: Name Collection Type:: Clean-Voided Midstream Performed By: #### U HCG, URDS, UA #### [facility] [address] [place] [address] [place] Ketones Ql (U) Negative Normal Negative [facility] Comment on above: Order Comment: Name Collection Type:: Clean-Voided Midstream Performed By: #### U HCG, URDS, UA #### [facility] [address] [place] [address] [place] Leukocyte esterase Test strip Ql (U) Negative Normal Negative [facility] Comment on above: Order Comment: Name Collection Type:: Clean-Voided Midstream Performed By: #### U HCG, URDS, UA #### [facility] [address] [place] [address] [place] Nitrite,Urine Negative Normal Negative [facility] Comment on above: Order Comment: Name Collection Type:: Clean-Voided Midstream Performed By: #### U HCG, URDS, UA #### [place] [address] [place] Occult Blood,Urine Negative Normal Negative [facility] Comment on above: Order Comment: Name Collection Type:: Clean-Voided Midstream Performed By: #### U HCG, URDS, UA #### [address] pH (U) 6.5 [pH] Normal 5.0-9.0 [facility] Comment on above: Order Comment: Name Collection Type:: Clean-Voided Midstream Performed By: #### U HCG, URDS, UA #### [place] [address] [place] Protein,Urine Negative Normal Negative [facility] Comment on above: Order Comment: Name Collection Type:: Clean-Voided Midstream Performed By: #### U HCG, URDS, UA #### [address] Specificy [place],Urine 1.010 Normal 1.001-1.030 [facility] Comment on above: Order Comment: Name Collection Type:: Clean-Voided Midstream Performed By: #### U HCG, URDS, UA #### [facility] [address] [place] [address] [place] Urobilinogen,Urine Normal Normal Normal [facility] Comment on above: Order Comment: Name Collection Type:: Clean-Voided Midstream Performed By: #### U HCG, URDS, UA #### [facility] [address] [place] [address] [place] Urine clarity by refractomet ry automatedOrdered By: Bhanu Alvarez on 06-03-2023 Clarity Refractometry automated (U) Clear Clear [facility] Urine glucose measurement by automated test strip (mass/volume)Ordered By: Bhanu Alvarez on 06-03-2023 Glucose Auto test strip (U) [Mass/Vol] Normal mg/dL Normal [facility] Urine hemoglobin detection b y automated test stripOrdered By: Bhanu Alvarez on 06-03-2023 Hemoglobin Auto test strip Ql (U) Negative Negative [facility] Urine leukocyte esterase det ection by automated test stripOrdered By: Bhanu Alvarez on 06-03-2023 Leukocyte esterase Auto test strip Ql (U) Negative Negative [facility] Urobilinogen Auto test strip (U) [Mass/Vol]Ordered By: Bhanu Alvarez on 06-03-2023 Urobilinogen (U) [Mass/Vol] Normal mg/dL Normal [facility] WBC Auto (Bld) [#/Vol]Ordere d By: Bhanu Alvarez on 06-03-2023 WBC (Bld) [#/Vol] 6.8 10*3/uL 3.8-11.6 [facility] pH Auto test strip (U)Ordere d By: Bhanu Alvarez on 06-03-2023 pH (U) 6.5 [pH] 5.0-9.0 [facility] Physician Referralon 023 Physician Referral [id number] [facility] Physician Referralon 023 Physician Referral [id number]#1.00CD:12 7 [facility] RAD - MISCon 12-27-2022 RAD - MISC [id number]#1.00CD:12 7 [facility] ED Note-Physicianon 11-27-19 ED Note-Physician [id number]#1.00CD:12 7 [facility] ED Note-Physician Basic Information Time Seen: Gaby Turner PA-C 11/22/2022 20:47 Chief Complaint L flank pain worsening x 2 weeks. pt. seen at [place] x 2 with negative workup. hx kidney stones. also c/o N/V. denies fevers. History of Present Illness This patient presents emergency department chief complaint of left flank pain. The patient states this has been going on for 2 weeks. 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 I discussed with [...] Locations R1: This test was performed at: [facility], [address] [place] [address], [address]- , , Normal [facility] Comment on above: Performed By: #### 1 [id number], [id number], [id number] #### [facility] [address] [place] [address] Discharge Instructionson Discharge Instructions [id number]#[id number]:1 27 Normal [facility] ED Clinical Summaryon 2022 ED Clinical Summary (Inserted Image. Jeniffer ble to display) [address] [address] ED Clinical Summary Person Information Name: SULLY ENRIQUEZ [facility] Age: 32 Years : 1990 Sex: Female Language: Bahamian PCP: MARIO GLASGOW DO Marital Status: Visit [...] 11/23/2022 01:20:40 11/23/2022 01:20:40 11/23/2022 01:20:40 ADDRESS: [address] [place] [id number] PHYS DOC NOTES: MEDICAL INFORMATION: Prescriptions Given: New Medications [id number], [address] [place], [place] [id number], [phone] tramadol (traMADOL 50 mg Tab) 1 Tablets By Mouth every 6 hours as needed for pain. Refills: 0. Medications to Continue with No Changes Other Medications acetaminophen-hydrocodone ([place] 5/325 Tab) By Mouth every 6 hours. [...] Endometriosis; Laparoscopic Lysis of Abdominal Adhesions; Adhesions, Wtmw-fm-Ydzz; Abdominal Pain, Adult, Elgq-cf-Pgsc Follow up: With: Address: When: MARIO GLASGOW [address] [place] [address] Business (1) In 3 days 11/26/2022 DIAGNOSIS: 1:Chronic left flank pain; 2:Abdominal pain, acute, left upper quadrant; Other chronic pain Normal [facility] ED Patient Education Noteon 11-23-2022 ED [...] including vitamins, herbs, eye drops, creams, and rhgs-epe-wkzpieu medicines. ? Any problems you or family [...] tells you to take them. ? Taking gfrd-yif-gnjlmzd medicines, vitamins, herbs, and supplements. General instructions [...] returns. Aft (more content not included)... Normal [facility] ED Patient Summaryon 023 ED Patient Summary (Inserted Image. Jeniffer ble to display) [place] [address] Patient Discharge Instructions Person Information Name: SULLY ENRIQUEZ Age: 32 Years Arrival Date: 11/22/2022 19:01:04 Discharge Diagnosis: 1:Chronic left flank pain; 2:Abdominal pain, acute, left upper quadrant; Other chronic pain Primary Care Physician: MARIO GLASGOW DO Provider Information Primary Provider: Sonam Montoya DO [employer]:None The exam and treatment you received in the Emergency Department were for an urgent problem and are not intended as complete care. It is important that you follow up with a doctor, nurse practitioner, or physician?s technical administrative assistant for ongoing care. If your symptoms [...] With: Address: When: MARIO MADERA, [address] [place] [address] Business (1) In 3 days 11/26/2022 In the event that this physician does not participate in your insurance network, please consult with your insurance company to find a nearby participating provider. Patient Education Materials: Endometriosis; Laparoscopic Lysis of Abdominal Adhesions; Adhesions, Qkwa-rh-Xxse; Abdominal Pain, Adult, Zfwg-aw-Yfjf A MESSAGE TO ALL PATIENTS REGARDING OPIOIDS PRESCRIPTION OPIOIDS: WHAT YOU NEED TO KNOW Prescription opioids can be used to help relieve ghunhswm-vq-uyjzwp pain and are often prescribed following a [...] struggling wit (more content not included)... Normal [facility] XR Abdomen 1 Viewon 11-24-19 XR [...] mGy = na DAP = na Normal [facility] Auto Diffon 11-22-2022 Basophils/100 WBC (Bld) 0.6 % Normal 0.0-2.0 [facility] Comment on above: Order Comment: Order Added by Discern Expert. Performed By: #### 2 057420, 9483760, 1779377, 44637117, 0174016, 4470805 #### [facility] [address] [place] [address] Basophils/Leukocytes Auto (Bld) [Pure # fraction] 0.0 E9/L Normal 0.0-0.2 [facility] Comment on above: Order Comment: Order Added by Discern Expert. Performed By: #### 2 279385, 3818227, 8464125, 60469158, 5541793, 5938387 #### [facility] [address] [place] [address] Eosinophils/100 WBC (Bld) 1.5 % Normal 0.0-8.0 [facility] Comment on above: Order Comment: Order Added by [place] Expert. Performed By: #### 2 250709, 1908647, 3269765, 95032989, 6394781, 1054428 #### [facility] [address] [place] [address] Eosinophils/Leukocytes Auto (Bld) [Pure # fraction] 0.1 E9/L Normal 0.0-0.5 [facility] Comment on above: Order Comment: Order Added by Discern Expert. Performed By: #### 2 542861, 7004381, 1278777, 66417938, 3494876, 2116967 #### [facility] [address] [place] [address] Lymphocytes/100 WBC (Bld) 33.5 % Normal 14.0-50.0 [facility] Comment on above: Order Comment: Order Added by Discern Expert. Performed By: #### 2 037563, 4901780, 3536748, 13916819, 0542165, 9668527 #### [facility] [address] [place] [address] Lymphocytes/Leukocytes Auto (Bld) [Pure # fraction] 2.6 E9/L Normal 1.0-4.0 [facility] Comment on above: Order Comment: Order Added by Discern Expert. Performed By: #### 2 431706, 1742807, 6798689, 77558921, 4679348, 2534892 #### [facility] [address] [place] [address] Monocytes/100 WBC (Bld) 8.6 % Normal 4.0-14.0 [facility] Comment on above: Order Comment: Order Added by Discern Expert. Performed By: #### 2 168135, 0384244, 8116979, 35522155, 9444803, 0358180 #### [facility] [address] [place] [address] Monocytes/Leukocytes Auto (Bld) [Pure # fraction] 0.7 E9/L Normal 0.2-1.0 [facility] Comment on above: Order Comment: Order Added by Discern Expert. Performed By: #### 2 327441, 0468319, 5726308, 05679911, 5011279, 3310381 #### [facility] [address] [place] [address] Neutrophils/100 WBC (Bld) 55.8 % Normal 36.0-75.0 [facility] Comment on above: Order Comment: Order Added by Discern Expert. Performed By: #### 2 623806, 1945391, 7094182, 99567925, 3307207, 4354189 #### [facility] [address] [place] [address] Neutrophils/Leukocytes Auto (Bld) [Pure # fraction] 4.3 E9/L Normal 2.0-7.5 [facility] Comment on above: Order Comment: Order Added by Discern Expert. Performed By: #### 2 732136, 0114363, 4032827, 50808531, 7283863, 3271048 #### [facility] [address] [place] [address] BMPon 11-22-2022 Creatinine [Mass/Vol] 1.0 mg/dL Normal 0.5-1.3 [facility] Comment on above: Performed By: #### 2 788842, 3579720, 4697712, 51335172, 8380035, 3330524 #### [facility] [address] [place] [address] Urea nitrogen [Mass/Vol] 16 mg/dL Normal 5-21 [facility] Comment on above: Performed By: #### 2 955278, 5599108, 4539510, 09988645, 3828904, 9811661 #### [facility] [address] [place] [address] Urea nitrogen/Creatinine [Mass ratio] 16 No Units Normal 10-20 [facility] Comment on above: Performed By: #### 2 112633, 7558586, 7640320, 34738363, 3117194, 4836417 #### [facility] [address] [place] [address] Anion gap [Moles/Vol] 15 mmol/L Normal 6-16 [facility] Comment on above: Performed By: #### 2 017338, 0242097, 6824130, 22334526, 2413340, 3032839 #### [facility] [address] [place] [address] Calcium [Mass/Vol] 9.6 mg/dL Normal 8.9-11.1 [facility] Comment on above: Performed By: #### 2 003111, 8202133, 8911530, 98458009, 5363561, 7363141 #### [facility] [address] [place] [address] Chloride [Moles/Vol] 107 mmol/L Normal 101-111 [facility] Comment on above: Performed By: #### 2 993705, 1502645, 7293742, 49507706, 7234355, 4181040 #### [facility] [address] [place] [address] CO2 [Moles/Vol] 19 mmol/L Low 21-31 [facility] Comment on above: Performed By: #### 2 500587, 4600912, 4890653, 09771416, 1995684, 3397925 #### [facility] [address] [place] [address] Glucose [Mass/Vol] 97 mg/dL Normal 55-199 [facility] Comment on above: Result Comment: If t his glucose result represents a fasting glucose, interpretation should refer to the following reference range: 55-99 mg/dL Performed By: #### 2 046161, 8443561, 2208558, 89948204, 3829908, 8613508 #### [facility] [address] [place] [address] Potassium [Moles/Vol] 3.9 mmol/L Normal 3.5-5.3 [facility] Comment on above: Performed By: #### 2 656602, 7717408, 0291198, 38496375, 8726324, 3411346 #### [facility] [address] [place] [address] Sodium [Moles/Vol] 137 mmol/L Normal 135-145 [facility] Comment on above: Performed By: #### 2 157014, 9586137, 9043021, 74967671, 3176032, 5923700 #### [facility] [address] [place] [address] CBC w/ Auto Diffon 3 Erythrocyte distribution width (RBC) [Ratio] 13.0 % Normal 10.9-14.2 [facility] Comment on above: Performed By: #### 2 320354, 8832356, 6117105, 35139629, 0886004, 5687098 #### [facility] [address] [place] [address] Hematocrit (Bld) [Volume fraction] 42.7 % Normal 34.0-46.0 [facility] Comment on above: Performed By: #### 2 032130, 0116933, 4453545, 24994012, 9861924, 6250159 #### [facility] [address] [place] [address] Hemoglobin (Bld) [Mass/Vol] 14.6 g/dL Normal 12.0-16.0 [facility] Comment on above: Performed By: #### 2 572698, 7788141, 3126798, 05536472, 3385429, 9258171 #### [facility] [address] [place] [address] MCH (RBC) [Entitic mass] 31.7 pg Normal 27.0-34.0 [facility] Comment on above: Performed By: #### 2 838106, 7385153, 0236414, 50078229, 5021013, 2594379 #### [facility] [address] [place] [address] MCHC (RBC) [Mass/Vol] 34.1 g/dL Normal 31.4-36.0 [facility] Comment on above: Performed By: #### 2 539755, 4592159, 0059685, 23237003, 3351119, 5587185 #### [facility] [address] [place] [address] MCV (RBC) [Entitic vol] 93.1 fL Normal 80.0-100.0 [facility] Comment on above: Performed By: #### 2 973733, 2052491, 0510521, 92791338, 7564577, 5278249 #### [facility] [address] [place] [address] Platelet mean volume (Bld) [Entitic vol] 8.8 fL Normal 6.4-10.8 [facility] Comment on above: Performed By: #### 2 976920, 4977850, 1466420, 44657712, 6409455, 1400697 #### [facility] [address] [place] [address] Platelets (Bld) [#/Vol] 199.0 E9/L Normal 150.0-500.0 [facility] Comment on above: Performed By: #### 2 388541, 6054967, 1731560, 76032775, 2238015, 4120929 #### [facility] [address] [place] [address] RBC (Bld) [#/Vol] 4.6 E12/L Normal 4.3-5.9 [facility] Comment on above: Performed By: #### 2 204037, 7174515, 9616856, 02274541, 6895534, 1442223 #### [facility] [address] [place] [address] WBC corrected for nucl RBC Auto (Bld) [#/Vol] 7.7 E9/L Normal 4.0-11.0 [facility] Comment on above: Performed By: #### 2 362117, 3097778, 8215541, 38050212, 6191128, 8889404 #### [facility] [address] [place] [address] CHEMISTRYOrdered By: SYSTEM SYSTEM on 11-22-2022 Albumin [...] 76 mL/min/1.73 m2 Normal >=59mL/min/ 1.73 m2 [facility] Chem S Globulin (S) [Mass/Vol] 3.4 g/dL [...] Remisol Consent for Treatmenton Consent for Treatment [id number]#[id number]:12 7 Normal [facility] HEMATOLOGYOrdered By: SYSTEM SYSTEM on 11-22-2022 [...] 4.6 E12/L Normal 4.3 - 5.9 E12/L [facility] HemeAutoSS WBC corrected for nucl RBC Auto (Bld) [#/Vol] 7.7 E9/L Normal 4.0 - 11.0 E9/L [facility] HemeAutoSS Hep Func Panelon 11-22-2022 Bilirubin.indirect [Mass or moles/Vol] UTC Abnormal 0.1-0.9 [facility] Comment on above: Result Comment: Resu lt verified by Discern Rule. Performed result UT (Unable to Calculate) was sent as an Alpha code due the inability to calculate a valid numeric value. Performed By: #### 2 875766, 5935127, 3695154, 13868063, 2049927, 8912811 #### [facility] [address] [place] [address] Albumin [Mass/Vol] 4.5 g/dL Normal 3.3-5.0 [facility] Comment on above: Performed By: #### 2 927059, 7482329, 9535217, 53609620, 5539097, 6747219 #### [facility] [address] [place] [address] Albumin/Globulin (S) [Mass conc ratio] 1.3 Normal 1.1-2.2 [facility] Comment on above: Performed By: #### 2 089690, 6222828, 6031861, 62233482, 5710707, 5175236 #### [facility] [address] [place] [address] ALP [Catalytic activity/Vol] 42 Int._Unit/L Normal 21-98 [facility] Comment on above: Performed By: #### 2 936447, 2416107, 6874038, 30959123, 1151315, 4097793 #### [facility] [address] [place] [address] ALT No additional P-5'-P [Catalytic activity/Vol] 36 Int._Unit/L Normal 6-46 [facility] Comment on above: Performed By: #### 2 595449, 4346146, 8817745, 73430218, 1239030, 2333048 #### [facility] [address] [place] [address] AST [Catalytic activity/Vol] 26 Int._Unit/L Normal 5-43 [facility] Comment on above: Performed By: #### 2 970782, 4863981, 4270207, 69746100, 2459136, 4134361 #### [facility] [address] [place] [address] Bilirubin [Mass/Vol] 0.6 mg/dL Normal 0.0-1.1 [facility] Comment on above: Performed By: #### 2 839405, 5405829, 0151773, 90478280, 6592004, 7644839 #### [facility] [address] [place] [address] Globulin (S) [Mass/Vol] 3.4 g/dL Normal 1.4-4.0 [facility] Comment on above: Performed By: #### 2 571829, 4263885, 9957984, 96441237, 1189023, 0149085 #### [facility] [address] [place] [address] Protein [Mass/Vol] 7.9 g/dL High 6.0-7.8 [facility] Comment on above: Performed By: #### 2 685454, 0196794, 8516271, 84789661, 4812814, 1704454 #### [facility] [address] [place] [address] Bilirubin.direct [Mass/Vol] mg/dL Normal 0.1-0.4 [facility] Comment on above: Performed By: #### 2 607927, 1914465, 2645896, 53252178, 6821634, 5598614 #### [facility] [address] [place] [address] Laboratory - Microbiology an d Antimicrobial susceptibilityOrdered By: Sherice Espinosa on 11-22-2022 Bacteria identified Cx Nom (U) 500 cfu/ml Mixed skin contaminants [facility] Lipase Levelon 11-22-2022 Lipase [Catalytic activity/Vol] 28 U/L Normal 13-58 [facility] Comment on above: Performed By: #### 2 305548, 7854850, 9219556, 18111608, 7505213, 9830663 #### [facility] [address] [place] [address] SEROLOGYOrdered By: Mario Dinh ster on 11-22-2022 HCG.beta subunit (U) [Moles/Vol] Negative Normal [facility] Man Sero U BetaHcg Qualon 11-22-2022 HCG.beta subunit (U) [Moles/Vol] Negative Normal [facility] Comment on above: Performed By: #### 1 0538583, 6431682, 77450789 #### [facility] [address] [place] [address] UA With Cult Reflexon 2022 Bacteria LM Ql (Urine sed) 2+ /HPF Abnormal Trace [facility] Comment on above: Performed By: #### 1 [id number], [id number], [id number] #### [facility] [address] [place] [address] Bilirubin Ql (U) Negative Normal Negative [facility] Comment on above: Performed By: #### 1 [id number], [id number], [id number] #### [facility] [address] [place] [address] Clarity (U) CLEAR Normal Clear [facility] Comment on above: Performed By: #### 1 [id number], [id number], [id number] #### [facility] [address] [place] [address] Color (U) YELLOW Normal Yellow [facility] Comment on above: Performed By: #### 1 [id number], [id number], [id number] #### [facility] [address] [place] [address] Epithelial cells.squamous LM.HPF (Urine sed) [#/Area] 5-8 Normal 0-2 [facility] Comment on above: Performed By: #### 1 [id number], [id number], [id number] #### [facility] [address] [place] [address] Glucose Test strip (U) [Mass/Vol] Negative Normal Negative [facility] Comment on above: Performed By: #### 1 [id number], [id number], [id number] #### [facility] [address] [place] [address] Hemoglobin Ql (U) Negative Normal Negative [facility] Comment on above: Performed By: #### 1 [id number], [id number], [id number] #### [facility] [address] [place] [address] Ketones (U) [Mass/Vol] Negative Normal Negative [facility] Comment on above: Performed By: #### 1 [id number], [id number], [id number] #### [facility] [address] [place] [address] [facility]plasma/[facility]. RBC (Bld) [Mass ratio] 0-3 Normal 0-3 [facility] Comment on above: Performed By: #### 1 [id number], [id number], [id number] #### [facility] [address] [place] [address] Mucus Ql (Urine sed) TRACE Normal [facility] Comment on above: Performed By: #### 1 [id number], [id number], [id number] #### [facility] [address] [place] [address] Nitrite Ql (U) Negative Normal Negative [facility] Comment on above: Performed By: #### 1 [id number], [id number], [id number] #### [facility] [address] [place] [address] pH (U) 6.0 [pH] Invalid Interpretation Code 5.0-9.0 [facility] Comment on above: Performed By: #### 1 [id number], [id number], [id number] #### [facility] [address] [place] [address] Protein (U) [Mass/Vol] Negative Normal Negative [facility] Comment on above: Performed By: #### 1 [id number], [id number], [id number] #### [facility] [address] [place] [address] Specific gravity (U) [Rel density] 1.025 Invalid Interpretation Code 1.005-1.030 [facility] Comment on above: Performed By: #### 1 [id number], [id number], [id number] #### [facility] [address] [place], [place] [id number] Type of Urine collection method Clean Catch Normal [facility] Comment on above: Performed By: #### 1 [id number], [id number], [id number] #### [facility] [address] [place] [address] Urobilinogen Qn (U) 0.2 {Elba'U}/dL Normal 0.0-1.0 [facility] Comment on above: Performed By: #### 1 [id number], [id number], [id number] #### [facility] [address] [place] [address] WBC Auto Ql (U) Negative Normal Negative [facility] Comment on above: Performed By: #### 1 [id number], [id number], [id number] #### [facility] [address] [place], [place] [address] WBC LM.HPF (Urine sed) [#/Area] 0-5 Normal 0-5 [facility] Comment on above: Performed By: #### 1 [id number], 0172602, [id number] #### [facility] [address] [place] [address] URINALYSISOrdered By: Mario howell on 11-22-2022 Bacteria [...] PM) Normal Negative [facility] UA Auto SS [facility]plasma/[facility]. RBC (Bld) [Mass ratio] 0-3 /HPF Normal 0-3/HPF [facility] UA Auto SS Mucus Ql (Urine sed) Trace (11/22/22 7:19 PM) Normal [facility] UA Auto SS Nitrite Ql (U) Negative (11/22/22 7:19 PM) Normal Negative [facility] UA Auto SS pH (U) 6.0 *NA* (11/22/22 7:19 PM) Invalid Interpretation Code 5.0 - 9.0 [facility] UA Auto SS Protein (U) [Mass/Vol] Negative (11/22/22 7:19 PM) Normal Negative [facility] UA Auto SS Specific gravity (U) [Rel density] 1.025 *NA* (11/22/22 7:19 PM) Invalid Interpretation Code 1.005 - 1.030 [facility] UA Auto SS UA Spec Desc Clean Catch (11/22/22 7:19 PM) Normal [facility] UA Auto SS Urobilinogen Qn (U) 0.7315906 {Elba'U}/dL Normal 0.0 - 1.0 EU/dL [facility] UA Auto SS WBC Auto Ql (U) Negative (11/22/22 7:19 PM) Normal Negative [facility] UA Auto SS WBC LM.HPF (Urine sed) [#/Area] 0-5 /HPF Normal 0-5/HPF [facility] UA Auto SS eGFRon 11-22-2022 GFR/1.73 sq M.predicted among non-blacks MDRD (S/P/Bld) [Vol rate/Area] 76 mL/min/1.73 m2 Normal >=59 [facility] Comment on above: Order Comment: Order added by Discern Expert. Result Comment: Job Hand fahad kidney disease could be indicated at eGFR's of less than 60 mL/min/1.73m2. Kidney failure is indicated at less than 15 mL/min/1.73m2. Performed By: #### 2 [id number], [id number], 6801026, [id number], [id number], [id number] #### [facility] [address] [place] [address] CT HEAD WO CONon 08-14-2022 CT HEAD [...] by: ROC ARNOLD Date: 2022-08-13 22:12 Normal [facility] CBC AUTO DIFFon 08-13-2022 BASO # 0.0 103/ul Normal 0.0-0.1 [facility] Comment on above: Performed By: #### C BC ####[facility] [address] [place] [address]DrHernandez Tucker Basophils/100 WBC (Bld) 0.3 % Normal 0.2-2.0 [facility] Comment on above: Performed By: #### C BC ####[facility] [address] [place] [address]DrHernandez Tucker EO # 0.0 103/ul Normal 0.0-0.7 [facility] Comment on above: Performed By: #### C BC ####[facility] [address] [place] [address]DrHernandez Tucker Eosinophils/100 WBC (Bld) 0.1 % Critically low 0.9-7.0 [facility] Comment on above: Performed By: #### C BC ####[facility] [address] [place] [address]Dr. Douglas Tucker Erythrocyte distribution width (RBC) [Ratio] 12.3 % Normal 11.0-15.0 [facility] Comment on above: Performed By: #### C BC ####[facility] [address] [place], [place] [address]Dr. Douglas Tucker Hematocrit (Bld) [Volume fraction] 41.6 % Normal 36.0-48.0 [facility] Comment on above: Performed By: #### C BC ####[facility] [address] [place], [place] [address]Dr. Douglas Tucker Hemoglobin (Bld) [Mass/Vol] 13.6 g/dL Normal 12.0-16.0 [facility] Comment on above: Performed By: #### C BC ####[facility] [address] [place], [place] [address]Dr. Douglas Tucker IG # 0.05 10e3/ul Critically high 0.00-0.03 [facility] Comment on above: Performed By: #### C BC ####[facility] [address] [place], [place] [address]Dr. Douglas Tucker IG % 0.3 % Normal 0.0-0.5 [facility] Comment on above: Performed By: #### C BC ####[facility] [address] [place], [place] [address]Dr. Douglas Tucker LYMPH # 3.0 103/ul Normal 1.2-3.8 [facility] Comment on above: Performed By: #### C BC ####[facility] [address] [place], [place] [address]Dr. Douglas Tucker Lymphocytes/100 WBC (Bld) 20.9 % Normal 20.5-60.0 [facility] Comment on above: Performed By: #### C BC ####[facility] [address] [place], [place] [address]Dr. Douglas Garrett MANUAL DIFF REQ NO Normal [facility] Comment on above: Performed By: #### C BC ####[facility] [address] [place] [address]Dr. Douglas Tucker MCH (RBC) [Entitic mass] 31.7 pg Normal 26.7-34.0 [facility] Comment on above: Performed By: #### C BC ####[facility] [address] [place] [address]Dr. Douglas Garrett MCHC (RBC) [Mass/Vol] 32.7 g/dL Normal 29.9-35.2 [facility] Comment on above: Performed By: #### C BC ####[facility] [address] [place] [address]Dr. Douglas Garrett MCV (RBC) [Entitic vol] 97.0 fL Normal 81.0-99.0 [facility] Comment on above: Performed By: #### C BC ####[facility] [address] [place], [place] [address]Dr. Umu[place] Tucker MONO # 1.0 103/ul Critically high 0.3-0.8 [facility] Comment on above: Performed By: #### C BC ####[facility] [address] [place], [place] [address]Dr. Umuana Tucker Monocytes/100 WBC (Bld) 7.2 % Normal 1.7-12.0 [facility] Comment on above: Performed By: #### C BC ####[facility] [address] [place] [address]DrHernandez Tucker NEUT # 10.2 103/ul Critically high 1.4-6.5 [facility] Comment on above: Performed By: #### C BC ####[facility] [address] [place], [place] [address]DrHernandez Umuana Tucker Neutrophils/100 WBC (Bld) 71.2 % Normal 43.0-75.0 [facility] Comment on above: Performed By: #### C BC ####[facility] [address] [place], [place] [address]Dr. Douglas Tucker Platelet mean volume (Bld) [Entitic vol] 10.6 fL Normal 9.5-13.5 [facility] Comment on above: Performed By: #### C BC ####[facility] [address] [place] [address]Dr. Douglas Tucker PLT 229 103/ul Normal 150-450 [facility] Comment on above: Performed By: #### C BC ####[facility] [address] [place] [address]Dr. Douglas Tucker RBC 4.29 106/ul Normal 4.20-5.40 [facility] Comment on above: Performed By: #### C BC ####[facility] [address] [place] [address]Dr. Douglas Tucker WBC 14.4 103/ul Critically high 4.0-11.0 [facility] Comment on above: Performed By: #### C BC ####[facility] [address] [place] [address]DrHernandez Tucker PROF CHEM 8 (BAS METB)on Anion gap [Moles/Vol] 14.6 mmol/L Normal [facility] Comment on above: Performed By: #### T ZAIDA, BMP #### [facility] [address] [place] [address] [address] Douglas Tucker Calcium [Mass/Vol] 9.0 mg/dL Normal 8.5-10.1 [facility] Comment on above: Performed By: #### T ZAIDA, BMP #### [facility] [address] [place] [address] [address] Douglas Tucker Chloride [Moles/Vol] 107 mmol/L Normal 98-107 [facility] Comment on above: Performed By: #### T SH, BMP #### [facility] [address] [place] [address] [address] Douglas Tucker CO2 [Moles/Vol] 23.2 mmol/L Normal 21.0-32.0 [facility] Comment on above: Performed By: #### T ZAIDA, BMP #### [facility] [address] [place] [address] Dr. Douglas Tucker Creatinine [Mass/Vol] 0.88 mg/dL Normal 0.55-1.02 [facility] Comment on above: Performed By: #### T SH, BMP #### [facility] [address] [place] [address] Dr. Douglas Tucker EGFR-AF SINGAPOREAN >60 Normal >=60 [facility] Comment on above: Performed By: #### T SH, BMP #### [facility] [address] [place] [address] Dr. Douglas Tucker EGFR-NON AF SINGAPOREAN >60 Normal >=60 [facility] Comment on above: Performed By: #### T SH, BMP #### [facility] [address] [place] [address] Dr. Douglas Tucker Glucose [Mass/Vol] 100 mg/dL Normal 74-106 [facility] Comment on above: Performed By: #### T SH, BMP #### [facility] [address] [place] [address] Dr. Douglas Tucker Potassium [Moles/Vol] 3.8 mmol/L Normal 3.5-5.1 [facility] Comment on above: Performed By: #### T SH, BMP #### [facility] [address] [place] [address] Dr. Douglas Tucker Sodium [Moles/Vol] 141 mmol/L Normal 136-145 [facility] Comment on above: Performed By: #### T SH, BMP #### [facility] [address] [place] [address] Dr. Douglas Tucker Urea nitrogen [Mass/Vol] 10.0 mg/dL Normal 7.0-18.0 [facility] Comment on above: Performed By: #### T SH, BMP #### [facility] [address] [place] [address] Dr. Douglas Tucker Urea nitrogen/Creatinine [Mass ratio] 11.4 mg/mg Normal [facility] Comment on above: Performed By: #### T SH, BMP #### [facility] [address] [place] [address] Dr. Douglas Tucker TSHon 08-13-2022 TSH 0.730 uIU/mL Normal 0.358-3.740 [facility] Comment on above: Performed By: #### T , BMP #### [facility] [address] [place] [address] [address] Douglas Tucker Automated erythrocytes count in urine sediment (number/area)Ordered By: Mario Perezgles on 06-14-2022 RBC Auto (Urine sed) [#/Area] None seen [HPF] 0-4 [facility] Automated leukocytes count i n urine sediment (number/area)Ordered By: Mario Pee on 06-14-2022 WBC Auto (Urine sed) [#/Area] 20-49 [HPF] 0-4 [facility] Bilirubin Test strip Ql (U)O rdered By: Mario Perezgles on 06-14-2022 Bilirubin Ql (U) Negative Negative [facility] Color Auto (U)Ordered By: Pee on 06-14-2022 Color (U) Yellow Yellow [facility] Ketones Auto test strip (U) [Mass/Vol]Ordered By: Mario Perezgles on 06-14-2022 Ketones (U) [Mass/Vol] Negative Negative [facility] - UrinalysisOrder ed By: Mario Perezgles on 06-14-2022 Hyaline casts LM Ql (Urine sed) 0-8 [LPF] 0-8 [facility] Nitrite Test strip Ql (U)Ord ered By: Mario Perezgles on 06-14-2022 Nitrite Ql (U) Negative Negative [facility] Protein Auto test strip (U) [Mass/Vol]Ordered By: Mario Pee on 06-14-2022 Protein (U) [Mass/Vol] Negative Negative [facility] Specific gravity Auto test s trip (U) [Rel density]Ordered By: Mario Perezgles on 06-14-2022 Specific gravity (U) [Rel density] 1.013 1.001-1.030 [facility] Squamous epithelial cells de tection in urine sediment by light microscopyOrdered By: Mario Perezgles on 06-14-2022 Epithelial cells.squamous LM Ql (Urine sed) 5-9 [HPF] 0-2 [facility] Urine bacteria detection by automated methodOrdered By: Mario Glasgow on 06-14-2022 Bacteria Auto Ql (U) 2+ None Seen [facility] Urine clarity by refractomet ry automatedOrdered By: Mario Glasgow on 06-14-2022 Clarity Refractometry automated (U) Cloudy Clear [facility] Urine culture routineOrdered By: Mario Glasgow on 06-14-2022 Bacteria identified Cx Nom (U) Strep. agalactiae Grp B [facility] Urine glucose measurement by automated test strip (mass/volume)Ordered By: Mario Glasgow on 06-14-2022 Glucose Auto test strip (U) [Mass/Vol] Normal mg/dL Normal [facility] Urine hemoglobin detection b y automated test stripOrdered By: Mario Glasgow on 06-14-2022 Hemoglobin Auto test strip Ql (U) Negative Negative [facility] Urine leukocyte esterase det ection by automated test stripOrdered By: Mario Glasgow on 06-14-2022 Leukocyte esterase Auto test strip Ql (U) 3+ Negative [facility] Urobilinogen Auto test strip (U) [Mass/Vol]Ordered By: Mario Glasgow on 06-14-2022 Urobilinogen (U) [Mass/Vol] Normal mg/dL Normal [facility] pH Auto test strip (U)Ordere d By: Mario Glasgow on 06-14-2022 pH (U) 5.5 [pH] 5.0-9.0 [facility] HCG ( test) IA.rapi d Ql (U)Ordered By: Figueroa Galindo on 05-02-2022 HCG ( test) Ql (U) Negative [facility] CULTURE URINEon 04-25-2022 CULTURE URINE Culture Observations : MODERATE GROWTH OF MIXED GENITAL CRICKET. NO POTENTIAL PATHOGENS SEEN. Normal [facility] Comment on above: Performed By: #### U RCX ####[facility] [address] [place] [address]DrHernandez Tucker ER URINE PROFILEon 3 Bilirubin Ql (U) Negative Normal NEGATIVE [facility] Comment on above: Performed By: #### P REGU, UMICRO, ERUR #### [facility] [address] [address] [address] Douglas Tucker Clarity (U) SL CLOUDY Abnormal CLEAR [facility] Comment on above: Performed By: #### P REGU, UMICRO, ERUR #### [facility] [address] [address] [address] Douglas Tucker Color (U) YELLOW Normal YELLOW [facility] Comment on above: Performed By: #### P REGU, UMICRO, ERUR #### [facility] [address] [place] [address] [address] Douglas CAMPOVERDEAHD A micrscopic examina tion will be performed if indicated. Normal [facility] Comment on above: Performed By: #### P REGU, UMICRO, ERUR #### [facility] [address] [place] [address] [address] Douglas Tucker Glucose Ql (U) Negative Normal NEGATIVE [facility] Comment on above: Performed By: #### P REGU, UMICRO, ERUR #### [facility] [address] [address] [address] Douglas Tucker Hemoglobin Ql (U) SMALL Abnormal NEGATIVE [facility] Comment on above: Performed By: #### P REGU, UMICRO, ERUR #### [facility] [address] [place] [address] [address] Douglas Tucker Ketones Ql (U) Negative Normal NEGATIVE [facility] Comment on above: Performed By: #### P REGU, UMICRO, ERUR #### [facility] [address] [place] [address] [address] Douglas Tucker LEUKOCYTES Negative Normal NEGATIVE [facility] Comment on above: Performed By: #### P REGU, UMICRO, ERUR #### [facility] [address] [place] [address] [address] Douglas Tucker Nitrite Ql (U) Negative Normal NEGATIVE [facility] Comment on above: Performed By: #### P REGU, UMICRO, ERUR #### [facility] [address] [address] [address] Douglas Tucker pH (U) 6.0 [pH] Normal 5-9 [facility] Comment on above: Performed By: #### P REGU, UMICRO, ERUR #### [facility] [address] [address] [address] Douglas Tucker SPEC GRAVITY >=1.030 Abnormal 1.005-<=1.0 25 [facility] Comment on above: Performed By: #### P REGU, UMICRO, ERUR #### [facility] [address] [address] [address] Douglas Tucker UA PROTEIN TRACE Normal NEGATIVE/ TRACE [facility] Comment on above: Performed By: #### P REGU, UMICRO, ERUR #### [facility] [address] [place] [address] Dr. Douglas Tucker UR MICRO IND INDICATED Normal [facility] Comment on above: Performed By: #### P REGU, UMICRO, ERUR #### [facility] [address] [address] [address] Douglas Tucker Urobilinogen Qn (U) 0.2 {Elba'U}/dL Normal 0.2 - 1. 0 [facility] Comment on above: Performed By: #### P REGU, UMICRO, ERUR #### [facility] [address] [address] [address] Douglas Tucker URon 04-25-2022 , QUAL Negative Normal NEGATIVE [facility] Comment on above: Performed By: #### P REGU, UMICRO, ERUR #### [facility] [address] [address] [address] Douglas Tucker URINE MICROSCOPIC ONLYon BACTERIA MODERATE Abnormal NONE SEEN [facility] Comment on above: Performed By: #### P REGU, UMICRO, ERUR #### [facility] [address] [place] [address] Dr. Douglas Tucker Bacteria identified Cx Nom (U) INDICATED Normal [facility] Comment on above: Performed By: #### P REGU, UMICRO, ERUR #### [facility] [address] [address] [address] Douglas Tucker CAST NONE SEEN Normal NONE SEEN [facility] Comment on above: Performed By: #### P REGU, UMICRO, ERUR #### [facility] [address] [address] [address] Douglas Tucker Crystals LM Nom (Urine sed) NONE SEEN Normal NONE SEEN [facility] Comment on above: Performed By: #### P REGU, UMICRO, ERUR #### [facility] [address] [address] [address] Douglas Tucker Epithelial cells LM Ql (Urine sed) MODERATE Abnormal NONE SEEN /RARE [facility] Comment on above: Performed By: #### P REGU, UMICRO, ERUR #### [facility] [address] [address] [address] Douglas Tucker MUCOUS NONE SEEN Normal NONE SEEN [facility] Comment on above: Performed By: #### P REGU, UMICRO, ERUR #### [facility] [address] [address] [address] Douglas Tucker RBC 2-5 Abnormal 0-2 [facility] Comment on above: Performed By: #### P REGU, UMICRO, ERUR #### [facility] [address] [address] [address] Douglas Tucker WBC 0-2 Abnormal NONE SEEN [facility] Comment on above: Performed By: #### P REGU, UMICRO, ERUR #### [facility] [address] [address] [address] Douglas Tucker COVID-19 SOFIAOrdered By: Adal Garcia on 04-23-2022 SARS-CoV+SARS-CoV-2 (COVID-19) Ag IA.rapid Ql (Resp) Negative Negative [facility] Comment on above: This is a duplicate Ruth SARS Antigen (LILLY) result to be used for statistical tracking purpose only. No Panel InformationOrdered By: Rell Garcia on 04-23-2022 SARS Antigen (LFIA) [facility] Activated partial thrombopla stin time (aPTT) in platelet poor plasma by coagulation aOrdered By: Rell Garcia on 04-10-2022 aPTT Coag (PPP) [Time] 31.6 s 25.1-36.5 [facility] Albumin [Mass/volume] in Ser um or PlasmaOrdered By: Rell Garcia on 04-10-2022 Albumin [Mass/Vol] 4.4 g/dL 3.2-5.5 [facility] Automated erythrocytes count in urine sediment (number/area)Ordered By: Rell Garcia on 04-10-2022 RBC Auto (Urine sed) [#/Area] None seen [HPF] 0-4 [facility] Automated leukocytes count i n urine sediment (number/area)Ordered By: Rell Garcia on 04-10-2022 WBC Auto (Urine sed) [#/Area] 20-49 [HPF] 0-4 [facility] Automated urine hyaline cast s count (number/volume)Ordered By: Rell Garcia on 04-10-2022 Hyaline casts Auto (U) [#/Vol] None seen [LPF] 0-1 [facility] Basophils Auto (Bld) [#/Vol] Ordered By: Rell Garcia on 04-10-2022 Basophils (Bld) [#/Vol] 0.0 10*3/uL 0.0-0.2 [facility] Basophils/100 WBC Auto (Bld) Ordered By: Rell Garcia on 04-10-2022 Basophils/100 WBC (Bld) 0.4 % . [facility] Bilirubin Test strip Ql (U)O rdered By: Rell Garcia on 04-10-2022 Bilirubin Ql (U) Negative Negative [facility] Casts typing in urine sedime nt by light microscopyOrdered By: Rell Garcia on 04-10-2022 Casts LM Nom (Urine sed) None seen [LPF] None Seen [facility] Color Auto (U)Ordered By: Adal Garcia on 04-10-2022 Color (U) Yellow Yellow [facility] Creatinine and Glomerular fi ltration rate.predicted panel (S/P/Bld)Ordered By: Rell Garcia on 04-10-2022 Creatinine [Mass/Vol] 0.80 mg/dL 0.44-1.03 [facility] Eosinophils Auto (Bld) [#/Vo l]Ordered By: Rell Garcia on 04-10-2022 Eosinophils (Bld) [#/Vol] 0.3 10*3/uL 0.0-0.45 [facility] Eosinophils/100 WBC Auto (Bl d)Ordered By: Rell Garcia on 04-10-2022 Eosinophils/100 WBC (Bld) 3.6 % . [facility] Erythrocyte distribution wid th Auto (RBC) [Ratio]Ordered By: Rell Garcia on 04-10-2022 Erythrocyte distribution width (RBC) [Ratio] 13.0 % 11.9-15.3 [facility] Estimated glomerular filtrat ion rate (GFR) non- AmericanOrdered By: Rell Garcia on 04-10-2022 GFR/1.73 sq M.predicted among non-blacks MDRD (S/P/Bld) [Vol rate/Area] > 60 mL/Min [facility] Globulin Calc (S) [Mass/Vol] Ordered By: Rell Garcia on 04-10-2022 Globulin (S) [Mass/Vol] 3.1 g/dL [facility] Hematocrit Auto (Bld) [Volum e fraction]Ordered By: Rell Garcia on 04-10-2022 Hematocrit (Bld) [Volume fraction] 44.2 % 34.0-46.4 [facility] Hemoglobin [Mass/volume] in BloodOrdered By: Rell Garcia on 04-10-2022 Hemoglobin (Bld) [Mass/Vol] 14.8 g/dL 11.8-15.4 [facility] Ketones Auto test strip (U) [Mass/Vol]Ordered By: Rell Garcia on 04-10-2022 Ketones (U) [Mass/Vol] Negative Negative Fi [facility] - CoagulationOrde red By: Rell Garcia on 04-10-2022 PT Coag (PPP) [Time] 10.8 s 9.0-12.9 [facility] Leukocytes [#/volume] correc armaan for nucleated erythrocytes in Blood by Automated counOrdered By: Rell Garcia on 04-10-2022 WBC corrected for nucl RBC Auto (Bld) [#/Vol] 8.6 10*3/uL 3.8-11.6 [facility] Lymphocytes Auto (Bld) [#/Vo l]Ordered By: Rell Garcia on 04-10-2022 Lymphocytes (Bld) [#/Vol] 3.0 10*3/uL 1.00-4.8 [facility] Lymphocytes/100 WBC Auto (Bl d)Ordered By: Rell Garcia on 04-10-2022 Lymphocytes/100 WBC (Bld) 35.3 % . [facility] MCH Auto (RBC) [Entitic mass ]Ordered By: Rell Garcia on 04-10-2022 MCH (RBC) [Entitic mass] 31.8 pg 24.7-34.3 [facility] MCHC Auto (RBC) [Mass/Vol]Or dered By: Rell Garcia on 04-10-2022 MCHC (RBC) [Mass/Vol] 33.5 g/dL 32.0-35.0 [facility] MCV Auto (RBC) [Entitic vol] Ordered By: Rell Garcia on 04-10-2022 MCV (RBC) [Entitic vol] 95.0 fL 80-100 [facility] Monocytes Auto (Bld) [#/Vol] Ordered By: Rell Garcia on 04-10-2022 Monocytes (Bld) [#/Vol] 0.6 10*3/uL 0.0-0.8 [facility] Monocytes/100 WBC Auto (Bld) Ordered By: Rell Garcia on 04-10-2022 Monocytes/100 WBC (Bld) 7.0 % . [facility] Neutrophils Auto (Bld) [#/Vo l]Ordered By: Rell Garcia on 04-10-2022 Neutrophils (Bld) [#/Vol] 4.6 10*3/uL 1.8-7.7 [facility] Neutrophils/100 WBC Auto (Bl d)Ordered By: Rell Garcia on 04-10-2022 Neutrophils/100 WBC (Bld) 53.7 % . [facility] Nitrite Test strip Ql (U)Ord ered By: Rell Garcia on 04-10-2022 Nitrite Ql (U) Negative Negative [facility] No Panel InformationOrdered By: Rell Garcia on 04-10-2022 Estimated GFR () > 60 mL/Min [facility] Comment on above: GFR estimated refere nce range: According to KDOQI guidelines, <60 ml/min/1.73m2 is sufficient to diagnose a patient with chronic kidney disease. Pharmacy Creatinine Clearance (Chem N/A [facility] Nucleated erythrocytes [Pres ence] in Blood by Automated countOrdered By: Rell Garcia on 04-10-2022 Nucleated RBC Auto Ql (Bld) 0.1 /100{WBC} 0-0.5 [facility] Platelet mean volume Auto (B ld) [Entitic vol]Ordered By: Rell Garcia on 04-10-2022 Platelet mean volume (Bld) [Entitic vol] 9.1 fL 6.3-10.7 [facility] Platelet poor plasma interna tional normalized ratio (INR) by coagulation assay (relatOrdered By: Rell Garcia on 04-10-2022 INR Coag (PPP) [Relative time] 1.0 {INR} [facility] Comment on above: INR Therapeutic Rang [...] 04-10-2022 Platelets (Bld) [#/Vol] 192 10*3/uL 150-450 [facility] Protein Auto test strip (U) [Mass/Vol]Ordered By: Rell Garcia on 04-10-2022 Protein (U) [Mass/Vol] Negative Negative [facility] Protein [Mass/volume] in Ser um or PlasmaOrdered By: Rell Garcia on 04-10-2022 Protein [Mass/Vol] 7.5 g/dL 6.1-7.9 [facility] RBC Auto (Bld) [#/Vol]Ordere d By: Rell Garcia on 04-10-2022 RBC (Bld) [#/Vol] 4.65 10*6/uL 3.60-5.00 [facility] Serum or plasma alanine venegas otransferase measurement without P-5'-P (enzymatic activiOrdered By: Rell Garcia on 04-10-2022 ALT No additional P-5'-P [Catalytic activity/Vol] 19 U/L 10-60 [facility] Serum or plasma albumin/glob ulin mass ratioOrdered By: Rell Garcia on 04-10-2022 Albumin/Globulin [Mass ratio] 1.4 {ratio} [facility] Serum or plasma alkaline molina sphatase measurement (enzymatic activity/volume)Ordered By: Rell Garcia on 04-10-2022 ALP [Catalytic activity/Vol] 47 U/L 32-92 [facility] Serum or plasma anion gap de terminationOrdered By: Rell Garcia on 04-10-2022 Anion gap [Moles/Vol] 13.2 mmol/L 6.0-15.0 [facility] Serum or plasma aspartate am inotransferase measurement (enzymatic activity/volume)Ordered By: Rell Garcia on 04-10-2022 AST [Catalytic activity/Vol] 18 U/L 10-42 [facility] Serum or plasma calcium liam urement (mass/volume)Ordered By: Rell Garcia on 04-10-2022 Calcium [Mass/Vol] 9.5 mg/dL 8.2-10.2 [facility] Serum or plasma chloride fransisca surement (moles/volume)Ordered By: Rell Garcia on 04-10-2022 Chloride [Moles/Vol] 106 mmol/L 95-114 [facility] Serum or plasma glucose liam urement (mass/volume)Ordered By: Rell Garcia on 04-10-2022 Glucose [Mass/Vol] 88 mg/dL 70-100 [facility] Comment on above: ADA recommended refe rence rangeRandom Glucose Reference Range is dependent on time and content of last meal. Glucose of more than 200 mg/dL in a nonstressed, ambulatory subject supports the diagnosis of Diabetes Mellitus. Serum or plasma potassium me asurement (moles/volume)Ordered By: Rell Garcia on 04-10-2022 Potassium [Moles/Vol] 4.1 mmol/L 3.5-5.1 [facility] Serum or plasma sodium measu rement (moles/volume)Ordered By: Rell Garcia on 04-10-2022 Sodium [Moles/Vol] 134 mmol/L 136-146 [facility] Serum or plasma total biliru bin measurement (mass/volume)Ordered By: Rell Garcia on 04-10-2022 Bilirubin [Mass/Vol] 0.7 mg/dL 0.3-1.2 [facility] Serum or plasma total carbon dioxide measurement (moles/volume)Ordered By: Rell Garcia on 04-10-2022 CO2 [Moles/Vol] 18.9 mmol/L 22.0-30.0 [facility] Serum or plasma urea nitroge n measurement (mass/volume)Ordered By: Rell Garcia on 04-10-2022 Urea nitrogen [Mass/Vol] 14 mg/dL 9-23 [facility] Specific gravity Auto test s trip (U) [Rel density]Ordered By: Rell Garcia on 04-10-2022 Specific gravity (U) [Rel density] 1.016 1.001-1.030 [facility] Squamous epithelial cells de tection in urine sediment by light microscopyOrdered By: Rell Garcia on 04-10-2022 Epithelial cells.squamous LM Ql (Urine sed) 10-19 [HPF] 0-2 [facility] Urine bacteria detection by automated methodOrdered By: Rell Garcia on 04-10-2022 Bacteria Auto Ql (U) 2+ None Seen [facility] Urine clarity by refractomet ry automatedOrdered By: Rell Garcia on 04-10-2022 Clarity Refractometry automated (U) Cloudy Clear [facility] Urine culture routineOrdered By: Rell Garcia on 04-10-2022 Bacteria identified Cx Nom (U) 2 Days [facility] Urine glucose measurement by automated test strip (mass/volume)Ordered By: Rell Garcia on 04-10-2022 Glucose Auto test strip (U) [Mass/Vol] Normal mg/dL Normal [facility] Urine hemoglobin detection b y automated test stripOrdered By: Rell Garcia on 04-10-2022 Hemoglobin Auto test strip Ql (U) Negative Negative [facility] Urine leukocyte esterase det ection by automated test stripOrdered By: Rell Garcia on 04-10-2022 Leukocyte esterase Auto test strip Ql (U) 3+ Negative [facility] Urobilinogen Auto test strip (U) [Mass/Vol]Ordered By: Rell Garcia on 04-10-2022 Urobilinogen (U) [Mass/Vol] Normal mg/dL Normal [facility] WBC Auto (Bld) [#/Vol]Ordere d By: Rell Garcia on 04-10-2022 WBC (Bld) [#/Vol] 8.6 10*3/uL 3.8-11.6 [facility] pH Auto test strip (U)Ordere d By: Rell Garcia on 04-10-2022 pH (U) 5.5 [pH] 5.0-9.0 [facility] XR ANKLE RT MIN 3 VIEWSon [...] LIZZIE YU Date: 2022-03-28 22:01 Normal [facility] XR SHOULDER LT 2V or >on [...] by: JASS GRISSOM Date: 2022-02-10 21:41 Normal [facility] CBC AUTO DIFFon 01-28-2022 BASO # 0.0 103/ul Normal 0.0-0.1 [facility] Comment on above: Performed By: #### C BC ####[facility] [address] [place], [place] [address]Dr. Douglas Tucker Basophils/100 WBC (Bld) 0.7 % Normal 0.2-2.0 [facility] Comment on above: Performed By: #### C BC ####[facility] [address] [place], [place] [address]Dr. Douglas Tucker EO # 0.1 103/ul Normal 0.0-0.7 [facility] Comment on above: Performed By: #### C BC ####[facility] [address] [place], [place] [address]Dr. Douglas Tucker Eosinophils/100 WBC (Bld) 2.2 % Normal 0.9-7.0 [facility] Comment on above: Performed By: #### C BC ####[facility] [address] [place], [place] [address]Dr. Douglas Tucker Erythrocyte distribution width (RBC) [Ratio] 12.0 % Normal 11.0-15.0 [facility] Comment on above: Performed By: #### C BC ####[facility] [address] [place], [place] [address]Dr. Douglas Tucker Hematocrit (Bld) [Volume fraction] 41.3 % Normal 36.0-48.0 [facility] Comment on above: Performed By: #### C BC ####[facility] [address] [place], [place] [address]Dr. Douglas Tucker Hemoglobin (Bld) [Mass/Vol] 13.7 g/dL Normal 12.0-16.0 [facility] Comment on above: Performed By: #### C BC ####[facility] [address] [place], [place] [address]Dr. Douglas Tucker IG # 0.01 10e3/ul Normal 0.00-0.03 [facility] Comment on above: Performed By: #### C BC ####[facility] X[address] [place], [place] [address]DrHernandez Tucker IG % 0.2 % Normal 0.0-0.5 [facility] Comment on above: Performed By: #### C BC ####[facility] [address] [place] [address]DrHernandez Tucker LYMPH # 2.1 103/ul Normal 1.2-3.8 [facility] Comment on above: Performed By: #### C BC ####[facility] [address] [place] [address]DrHernandez Tucker Lymphocytes/100 WBC (Bld) 38.5 % Normal 20.5-60.0 [facility] Comment on above: Performed By: #### C BC ####[facility] [address] [place], [place] [address]DrHernandez Tucker MANUAL DIFF REQ NO Normal [facility] Comment on above: Performed By: #### C BC ####[facility] [address] [place], [place] [address]DrHernandez Tucker MCH (RBC) [Entitic mass] 31.9 pg Normal 26.7-34.0 [facility] Comment on above: Performed By: #### C BC ####[facility] [address] [place], [place] [address]DrHernandez Tucker MCHC (RBC) [Mass/Vol] 33.2 g/dL Normal 29.9-35.2 [facility] Comment on above: Performed By: #### C BC ####[facility] [address] [place], [place] [address]DrHernandez Tucker MCV (RBC) [Entitic vol] 96.0 fL Normal 81.0-99.0 [facility] Comment on above: Performed By: #### C BC ####[facility] [address] [place], [place] [address]DrHernandez Tucker MONO # 0.4 103/ul Normal 0.3-0.8 [facility] Comment on above: Performed By: #### C BC ####[facility] Ekus[address] [place], [place] [address]DrHernandez Tucker Monocytes/100 WBC (Bld) 7.8 % Normal 1.7-12.0 [facility] Comment on above: Performed By: #### C BC ####[facility] [address] [place] [address]Dr. Douglas Tucker NEUT # 2.8 103/ul Normal 1.4-6.5 [facility] Comment on above: Performed By: #### C BC ####[facility] [address] [place] [address]Dr. Douglas Tucker Neutrophils/100 WBC (Bld) 50.6 % Normal 43.0-75.0 [facility] Comment on above: Performed By: #### C BC ####[facility] [address] [place], [place] [address]Dr. Douglas Tucker Platelet mean volume (Bld) [Entitic vol] 10.7 fL Normal 9.5-13.5 [facility] Comment on above: Performed By: #### C BC ####[facility] [address] [place], [place] [address]Dr. Douglas Tucker PLT 189 103/ul Normal 150-450 [facility] Comment on above: Performed By: #### C BC ####[facility] [address] [place], [place] [address]Dr. Douglas Tucker RBC 4.30 106/ul Normal 4.20-5.40 [facility] Comment on above: Performed By: #### C BC ####[facility] [address] [place], [place] [address]Dr. Douglas Tucker WBC 5.5 103/ul Normal 4.0-11.0 [facility] Comment on above: Performed By: #### C BC ####[facility] [address] [place], [place] [address]Dr. Douglas Tucker CULTURE URINEon 01-28-2022 CULTURE URINE Culture Observations : MODERATE GROWTH OF MIXED GENITAL CRICKET. NO POTENTIAL PATHOGENS SEEN. Normal [facility] Comment on above: Performed By: #### U RCX ####[facility] [address] [place], [place] [address]Dr. Douglas Garrett ER URINE PROFILEon 10-10-202 2 Bilirubin Ql (U) Negative Normal NEGATIVE [facility] Comment on above: Performed By: #### U MICRO, ERUR #### [facility] [address] [place] [address] Dr. Douglas Tucker Clarity (U) CLEAR Normal CLEAR [facility] Comment on above: Performed By: #### U MICRO, ERUR #### [facility] [address] [address] [address] Douglas Tucker Color (U) LT. YELLOW Normal YELLOW [facility] Comment on above: Performed By: #### U MICRO, ERUR #### [facility] [address] [place] [address] Dr. Douglas Tucker ERUAHD A micrscopic examina tion will be performed if indicated. Normal [facility] Comment on above: Performed By: #### U MICRO, ERUR #### [facility] [address] [place] [address] Dr. Douglas Tucker Glucose Ql (U) Negative Normal NEGATIVE [facility] Comment on above: Performed By: #### U MICRO, ERUR #### [facility] [address] [place] [address] Dr. Douglas Tucker Hemoglobin Ql (U) TRACE-INTACT Abnormal NEGATIVE [facility] Comment on above: Performed By: #### U MICRO, ERUR #### [facility] [address] [place] [address] Dr. Douglas Tucker Ketones Ql (U) Negative Normal NEGATIVE [facility] Comment on above: Performed By: #### U MICRO, ERUR #### [facility] [address] [address] [address] Douglas Tucker LEUKOCYTES TRACE Abnormal NEGATIVE [facility] Comment on above: Performed By: #### U MICRO, ERUR #### [facility] [address] [address] [address] Douglas Tucker Nitrite Ql (U) Negative Normal NEGATIVE [facility] Comment on above: Performed By: #### U MICRO, ERUR #### [facility] [address] [place] [address] Dr. Douglas Tucker pH (U) 6.5 [pH] Normal 5-9 [facility] Comment on above: Performed By: #### U MICRO, ERUR #### [facility] [address] [address] [address] Douglas Tucker SPEC GRAVITY 1.020 Normal 1.005-<=1.0 25 [facility] Comment on above: Performed By: #### U MICRO, ERUR #### [facility] [address] [address] [address] Douglas Tucker UA PROTEIN Negative Normal NEGATIVE/ TRACE [facility] Comment on above: Performed By: #### U MICRO, ERUR #### [facility] [address] [address] [address] Douglas Tucker UR MICRO IND INDICATED Normal [facility] Comment on above: Performed By: #### U MICRO, ERUR #### [facility] [address] [place] [address] Dr. Douglas Tucker Urobilinogen Qn (U) 0.2 {Elba'U}/dL Normal 0.2 - 1. 0 [facility] Comment on above: Performed By: #### U MICRO, ERUR #### [facility] [address] [address] [address] Douglas Tucker PROF 14(COMP METB)on 022 Albumin [Mass/Vol] 3.9 g/dL Normal 3.4-5.0 [facility] Comment on above: Performed By: #### C MP ####[facility] [address] [place] [address]Dr. Douglas Tucker Albumin/Globulin [Mass ratio] 1.1 {ratio} Normal [facility] Comment on above: Performed By: #### C MP ####[facility] [address] [place] [address]Dr. Douglas Tucker ALP [Catalytic activity/Vol] 52 U/L Normal 46-116 [facility] Comment on above: Performed By: #### C MP ####[facility] [address] [place] [address]Dr. Douglas Tucker ALT [Catalytic activity/Vol] 31 U/L Normal 14-59 [facility] Comment on above: Performed By: #### C MP ####[facility] [address] [place] [id number]. Douglas Tucker Anion gap [Moles/Vol] 9.6 mmol/L Normal [facility] Comment on above: Performed By: #### C MP ####[facility] [address] [place] [id number]. Douglas Tucker AST [Catalytic activity/Vol] 15 U/L Normal 15-37 [facility] Comment on above: Performed By: #### C MP ####[facility] [address] [place] [address]Dr. Douglas Tucker Bilirubin [Mass/Vol] 0.3 mg/dL Normal 0.2-1.0 [facility] Comment on above: Performed By: #### C MP ####[facility] [address] [place], [place] [address]Dr. Douglas Garrett Calcium [Mass/Vol] 8.6 mg/dL Normal 8.5-10.1 [facility] Comment on above: Performed By: #### C MP ####[facility] [address] [place], [place] [address]Dr. Douglas Garrett Chloride [Moles/Vol] 107 mmol/L Normal 98-107 [facility] Comment on above: Performed By: #### C MP ####[facility] [address] [place] [id number]. Douglas Garrett CO2 [Moles/Vol] 27.4 mmol/L Normal 21.0-32.0 [facility] Comment on above: Performed By: #### C MP ####[facility] [address] [place] [id number]. Douglas Tucker Creatinine [Mass/Vol] 0.90 mg/dL Normal 0.55-1.02 [facility] Comment on above: Performed By: #### C MP ####[facility] [address] [place] [id number]. Douglas Garrett EGFR-AF SINGAPOREAN >60 Normal >=60 [facility] Comment on above: Performed By: #### C MP ####[facility] [address] [place] [id number]. Douglas Tucker EGFR-NON AF [place]INGAPOREAN >60 Normal >=60 [facility] Comment on above: Performed By: #### C MP ####[facility] [address] [place] [id number]. Douglas Tucker Globulin (S) [Mass/Vol] 3.4 g/dL Normal T [facility] Comment on above: Performed By: #### C MP ####[facility] [address] [place] [id number]. Douglas Tucker Glucose [Mass/Vol] 90 mg/dL Normal 74-106 [facility] Comment on above: Performed By: #### C MP ####[facility] [address] [place] [address]Dr. Douglas Tucker Potassium [Moles/Vol] 4.0 mmol/L Normal 3.5-5.1 [facility] Comment on above: Performed By: #### C MP ####[facility] [address] [place], [place] [address]Dr. Douglas Tucker Protein [Mass/Vol] 7.3 g/dL Normal 6.4-8.2 [facility] Comment on above: Performed By: #### C MP ####[facility] [address] [place] [address]Dr. Douglas Tucker Sodium [Moles/Vol] 140 mmol/L Normal 136-145 [facility] Comment on above: Performed By: #### C MP ####[facility] [address] [place], [place] [address]Dr. Douglas Tucker Urea nitrogen [Mass/Vol] 10.0 mg/dL Normal 7.0-18.0 [facility] Comment on above: Performed By: #### C MP ####[facility] [address] [place], [place] [address]Dr. Douglas Tucker Urea nitrogen/Creatinine [Mass ratio] 11.1 mg/mg Normal [facility] Comment on above: Performed By: #### C MP ####[facility] [address] [place] [address]Dr. Douglas Tucker URINE MICROSCOPIC ONLYon BACTERIA MODERATE Abnormal NONE SEEN [facility] Comment on above: Performed By: #### U MICRO, ERUR #### [facility] [address] [address] [address] Douglas Tucker Bacteria identified Cx Nom (U) INDICATED Normal [facility] Comment on above: Performed By: #### U MICRO, ERUR #### [facility] [address] [address] [address] Douglas Tucker CAST NONE SEEN Normal NONE SEEN [facility] Comment on above: Performed By: #### U MICRO, ERUR #### [facility] [address] [address] [address] Douglas Tucker Crystals LM Nom (Urine sed) NONE SEEN Normal NONE SEEN [facility] Comment on above: Performed By: #### U MICRO, ERUR #### [facility] [address] [address] [address] Douglas Tucker Epithelial cells LM Ql (Urine sed) FEW Abnormal NONE SEEN /RARE [facility] Comment on above: Performed By: #### U MICRO, ERUR #### [facility] [address] [address] [address] Douglas Tucker MUCOUS NONE SEEN Normal NONE SEEN [facility] Comment on above: Performed By: #### U MICRO, ERUR #### [facility] [address] [address] [address] Douglas Tucker RBC 0-2 Normal 0-2 [facility] Comment on above: Performed By: #### U MICRO, ERUR #### [facility] [address] [address] [address] Douglas Tucker WBC 2-5 Abnormal NONE SEEN [facility] Comment on above: Performed By: #### U MICRO, ERUR #### [facility] [address] [address] [address] Douglas Tucker US KIDNEYSon 01-28-2022 US [...] RICHELLE BUSH Date: 2022-01-28 13:45 Normal [facility] CBC AUTO DIFFon 10-29-2021 BASO # 0.1 103/ul Normal 0.0-0.1 [facility] Comment on above: Performed By: #### C BC ####[facility] Dsnkktdtsb4863 [place] [address]DrHernandez Tucker Basophils/100 WBC (Bld) 0.8 % Normal 0.2-2.0 [facility] Comment on above: Performed By: #### C BC ####[facility] Mpbuuarpao[address] [place], [place] [address]DrHernandez Tucker EO # 0.2 103/ul Normal 0.0-0.7 [facility] Comment on above: Performed By: #### C BC ####[facility] Edhkydhgpo8603 [place] [address]DrHernandez Tucker Eosinophils/100 WBC (Bld) 3.0 % Normal 0.9-7.0 [facility] Comment on above: Performed By: #### C BC ####[facility] Llilcwdcom9975 [place] [address]DrHernnadez Tucker Erythrocyte distribution width (RBC) [Ratio] 12.2 % Normal 11.0-15.0 [facility] Comment on above: Performed By: #### C BC ####[facility] Ltssleanud1865 [place] [address]DrHernandez Tucker Hematocrit (Bld) [Volume fraction] 39.9 % Normal 36.0-48.0 [facility] Comment on above: Performed By: #### C BC ####[facility] Iggdoqavaq8924 [place] [address]Dr. Douglas Tucker Hemoglobin (Bld) [Mass/Vol] 13.5 g/dL Normal 12.0-16.0 [facility] Comment on above: Performed By: #### C BC ####[facility] Emujdkfkqq4890 [place] [address]Dr. Douglas Tucker IG # 0.01 10e3/ul Normal 0.00-0.03 [facility] Comment on above: Performed By: #### C BC ####[facility] Ghaspggcss[address] [place], [place] [address]Dr. Douglas Garrett IG % 0.2 % Normal 0.0-0.5 [facility] Comment on above: Performed By: #### C BC ####[facility] Uxjumhydmb[address] [place], [place] [address]DrHernandez Douglas Garrett LYMPH # 3.0 103/ul Normal 1.2-3.8 [facility] Comment on above: Performed By: #### C BC ####[facility] Rwffqqngnu8[address] [place], [place] [address]DrHernandez Douglas Garrett Lymphocytes/100 WBC (Bld) 44.6 % Normal 20.5-60.0 [facility] Comment on above: Performed By: #### C BC ####[facility] Flfpoxnlph05[address] [place], [place] [address]DrHernandez Douglas Garrett MANUAL DIFF REQ NO Normal [facility] Comment on above: Performed By: #### C BC ####[facility] Gnnxwdbbrz4[address] [place], [place] [address]DrHernandez Douglas Garrett MCH (RBC) [Entitic mass] 32.1 pg Normal 26.7-34.0 [facility] Comment on above: Performed By: #### C BC ####[facility] Fyibnysknf[address] [place], [place] [address]Dr. Umuana Tucker MCHC (RBC) [Mass/Vol] 33.8 g/dL Normal 29.9-35.2 [facility] Comment on above: Performed By: #### C BC ####[facility] Yvuqwmihod1588 [place] [address]DrHernandez Tucker MCV (RBC) [Entitic vol] 95.0 fL Normal 81.0-99.0 [facility] Comment on above: Performed By: #### C BC ####[facility] Lwiaftfuhp[address] [place], [place] [address]DrHernandez Tucker MONO # 0.5 103/ul Normal 0.3-0.8 [facility] Comment on above: Performed By: #### C BC ####[facility] Ewtwbepuhc[address] [place], [place] [address]DrHernandez Tucker Monocytes/100 WBC (Bld) 7.8 % Normal 1.7-12.0 [facility] Comment on above: Performed By: #### C BC ####[facility] Wmxlnyrxuj9[address] [place], [place] [address]DrHernandez Tucker NEUT # 2.9 103/ul Normal 1.4-6.5 [facility] Comment on above: Performed By: #### C BC ####[facility] Cjhufxwjpe[address] [place], [place] [address]DrHernandez Tucker Neutrophils/100 WBC (Bld) 43.6 % Normal 43.0-75.0 [facility] Comment on above: Performed By: #### C BC ####[facility] Cnkgfloxun[address] [place], [place] [address]DrHernandez Tucker Platelet mean volume (Bld) [Entitic vol] 11.1 fL Normal 9.5-13.5 [facility] Comment on above: Performed By: #### C BC ####[facility] Zptsrvgrne[address] [place], [place] [address]DrHernandez Tucker PLT 188 103/ul Normal 150-450 [facility] Comment on above: Performed By: #### C BC ####[facility] Hvlbocpwjv[address] [place], [place] [address]DrHernandez Tucker RBC 4.20 106/ul Normal 4.20-5.40 [facility] Comment on above: Performed By: #### C BC ####[facility] Hcbhhbavkm7520 [place] [address]Dr. Douglas Tucker WBC 6.6 103/ul Normal 4.0-11.0 [facility] Comment on above: Performed By: #### C BC ####[facility] Wwmqkemffy4249 [place] [address]Dr. Douglas Tucker MAGNESIUMon 10-29-2021 Magnesium [Mass/Vol] 2.1 mg/dL Normal 1.8-2.4 [facility] Comment on above: Performed By: #### Alyse Alejandro, CMP ####[facility] Lbamqllovf[address] [place], [place] [address]Dr. Douglas Tucker PROF 14(COMP METB)on 022 Albumin [Mass/Vol] 3.6 g/dL Normal 3.4-5.0 [facility] Comment on above: Performed By: #### Alyse Alejandro, CMP ####[facility] Fkemsfrjzv[address] [place], [place] [address]Dr. Douglas Tucker Albumin/Globulin [Mass ratio] 1.2 {ratio} Normal [facility] Comment on above: Performed By: #### Alyse Alejandro, CMP ####[facility] Kwzigiefaj87[address] [place], [place] [address]Dr. Douglas Tucker ALP [Catalytic activity/Vol] 61 U/L Normal 46-116 [facility] Comment on above: Performed By: #### Alyse Alejandro, CMP ####[facility] Pmnlujwhdh[address] [place], [place] [address]Dr. Douglas Tucker ALT [Catalytic activity/Vol] 25 U/L Normal 14-59 [facility] Comment on above: Performed By: #### Alyse Alejandro, CMP ####[facility] Ejhgdbblgo[address] [place], [place] [address]Dr. Douglas Tucker Anion gap [Moles/Vol] 12.4 mmol/L Normal [facility] Comment on above: Performed By: #### Alyse Alejandro, CMP ####[facility] Eznbirhesn5108[address] [place], [place] [address]Dr. Douglas Tucker AST [Catalytic activity/Vol] 23 U/L Normal 15-37 [facility] Comment on above: Performed By: #### M G, CMP ####[facility] Wuefdoibor7742 [place] [address]Dr. Douglas Tucker Bilirubin [Mass/Vol] 0.3 mg/dL Normal 0.2-1.0 [facility] Comment on above: Performed By: #### M G, CMP ####[facility] Fpbyxmutwo6627 [place] [address]Dr. Douglas Tucker Calcium [Mass/Vol] 8.5 mg/dL Normal 8.5-10.1 [facility] Comment on above: Performed By: #### Alyse G, CMP ####[facility] Xwmfknnifr[address] [place], [place] [address]Dr. Douglas Tucker Chloride [Moles/Vol] 106 mmol/L Normal 98-107 [facility] Comment on above: Performed By: #### Alyse Alejandro, CMP ####[facility] Ppniwsjxot[address] [place], [place] [address]Dr. Douglas Tucker CO2 [Moles/Vol] 22.8 mmol/L Normal 21.0-32.0 [facility] Comment on above: Performed By: #### Alyse G, CMP ####[facility] Umeoebwcte[address] [place], [place] [address]Dr. Douglas Tucker Creatinine [Mass/Vol] 0.76 mg/dL Normal 0.55-1.02 [facility] Comment on above: Performed By: #### Alyse Alejandro, CMP ####[facility] Brqsuunvvo39[address] [place] [address]Dr. Douglas Tucker EGFR-AF SINGAPOREAN >60 Normal >=60 [facility] Comment on above: Performed By: #### M G, CMP ####[facility] Flcyqlxcqk5794 [place] [address]Dr. Douglas Tucker EGFR-NON AF SINGAPOREAN >60 Normal >=60 [facility] Comment on above: Performed By: #### M G, CMP ####[facility] Efyqoifbkr[address] [place], [place] [address]Dr. Douglas Tucker Globulin (S) [Mass/Vol] 3.0 g/dL Normal [facility] Comment on above: Performed By: #### M G, CMP ####[facility] Syrkkjikfx0955 [place] [address]Dr. Douglas Tucker Glucose [Mass/Vol] 110 mg/dL Critically high 74-106 [facility] Comment on above: Performed By: #### M G, CMP ####[facility] Dscdmpqujk7886 [place] [address]Dr. Douglas Tucker Potassium [Moles/Vol] 4.2 mmol/L Normal 3.5-5.1 [facility] Comment on above: Performed By: #### M Javon, CMP ####[facility] Iueldzffbf9180 [place] [address]Dr. Douglas Tucker Protein [Mass/Vol] 6.6 g/dL Normal 6.4-8.2 [facility] Comment on above: Performed By: #### Alyse Alejandro, CMP ####[facility] Ezcqdkouno09[address] [place] [address]Dr. Douglas Tucker Sodium [Moles/Vol] 137 mmol/L Normal 136-145 [facility] Comment on above: Performed By: #### M Javon, CMP ####[facility] Cbogtcljvm3840 [place] [address]Dr. Douglas Tucker Urea nitrogen [Mass/Vol] 12.0 mg/dL Normal 7.0-18.0 [facility] Comment on above: Performed By: #### Alyse Alejandro, CMP ####[facility] Zfzrevygna8580 [place] [address]Dr. Douglas Tucker Urea nitrogen/Creatinine [Mass ratio] 15.8 mg/mg Normal [facility] Comment on above: Performed By: #### M G, CMP ####[facility] Zcibultmit0245 [place] [address]Dr. Douglas Tucker ALLIED HEALTHon 03-07-2021 [facility] HNO ID: [id number] Author: RT Pati(R) Service: Radiology Author Type: [...] RT Pati(R) March 07, 2021 5:32 PM [facility] HNO ID: [id number] Author: Rosalie Haile MD Service: ? Author Type: Physician Type: Discharge Summary Filed: 03/11/2021 7:31 PM Note Text: Internal Medicine discharge [facility] PATIENT NAME: Sully Enriquez Discharge [...] known as: ZANAFLEX Rosalie Haile MD Normal [facility] HISTORY PHYSICALon HISTORY PHYSICAL HNO ID: [id number] Author: Rosalie Haile MD Service: ? Author Type: Physician Type: HANDP Filed: 03/11/2021 7:31 PM Note Text: [facility] SULLY ENRIQUEZ : 1990 AGE: 31 SEX: F CSN: [id number] [facility] [place]: [facility] LOCATION: [facility] ATTENDING PHYSICIAN: Rosalie Haile M.D. ? ? DATE OF SERVICE: 03/06/2021 ? ? SUBJECTIVE: Patient with a history of diabetes and obesity. Admitted to the hospital with seizure. ?This is a 31 year old female with a hx of seizures, diabetes, anxiety, and conversion disorder, who reportedly had a seizure [place] the [place] [facility] She and her boyfriend had just [...] 40.1 WBC (k/uL) Date Value 03/06/[address] [facility] consultants notes reviewed Most recent [...] goiter No carotid bruits. Rosalie Haile MD [facility] MRI BRAIN WO IVCONon 021 MRI [...] Routine noncontrast MRI protocol including diffusion images. Mqtl-ta-ubvyjy MRV brain with post-processing performed at the [...] intravenous contrast. Patent major dural venous sinuses. Transmission Calibration Engineer: MAVERICK Transcribe Date/Time: Mar 07 2021 5:46P Dictated by : HOLLAND MUELLER MD This examination was interpreted and the report reviewed and electronically signed by: HOLLAND MUELLER MD on Mar 07 2021 5:51PM EST [id number] Normal [facility] MRV BRAIN WO IVCONon 021 MRV [...] Routine noncontrast MRI protocol including diffusion images. Yurb-te-rzyhcd MRV brain with post-processing performed at the [...] intravenous contrast. Patent major dural venous sinuses. Transmission Calibration Engineer: MAVERICK Transcribe Date/Time: Mar 07 2021 5:46P Dictated by : HOLLAND MUELLER MD This examination was interpreted and the report reviewed and electronically signed by: HOLLAND MUELLER MD on Mar 07 2021 5:51PM EST [id number] [facility] NURSING PROGon 03-07-2021 NURSING PROG HNO ID: [id number] Author: Toya Pompa RN Service: ? Author Type: Registered Nurse Type: Nursing Progress Note Filed: 03/07/2021 11:35 PM Note Text: Nursing Progress Note Patient Name: Sully Enriquez Patient Location: Pt discharged, transferred via wheelchair to exit where was picking her up. IV/tele removed. All belongings accounted for. This note was completed by: Toya Pompa [facility] NURSING PROG HNO ID: [id number] Author: Cordelia Faye RN Service: Nursing Author [...] pitting edema BLE. Call light within reach. [facility] 1630 pt asks to be d/c today and have MRI as OP per neurology recs. Dr Haile paged. 1705 pt to MRI. Medicated with 25 mg of Atarax prior to MRI. [address] Haile to wait for MRI results. If neurology signs off after the MRI is resulted will reach dr Haile for d/c orders. [facility] This note was completed by: Cordelia Faye [facility] NURSING PROG HNO ID: [id number] Author: Breanne Reis RN Service: ? Author Type: Registered Nurse Type: Nursing Progress Note Filed: 03/07/2021 6:30 AM Note Text: Nursing Progress Note Patient Name: Sully Enriquez Patient Location: [facility]/ Daily Note : Assumed care of [...] This note was completed by: Smiley Raymundo [facility] NURSING PROG HNO ID: [id number] Author: Yoselin Cui RN Service: Nursing Author Type: Registered Nurse Type: Nursing Progress Note Filed: 03/06/2021 10:38 PM Note Text: Nursing Progress Note Patient Name: Sully Enriquez Patient Location: [facility]/PKTA Transfer Note: Patient transferred into room/unit PKT-12 in stable condition. Actions taken: Alert and oriented x 3. Patient was an ED hold. Admission database completed. Call light in reach. [facility]iley [facility] will do physical and skin assessments and complete NPR and skin flow sheets. This note was completed by: Yoselin Cui [facility] HEALTHon 03-06-2021 ALLIED HEALTH HNO ID: [id number] Author: HAWA [place]) Service: ? Author Type: [...] Sanam(R) March 06, 2021 2:45 AM Normal [facility] CBC and Differentialon 03-06 Abs Baso 0.04 k/uL Normal <0.11 [facility] Comment on above: Performed By: #### C K, ALCO, CBCDIF, CMP, MG1 ####[place] [id number] [place], [place] [phone] Abs Letcher 0.55 k/uL Normal <0.87 [facility] Comment on above: Performed By: #### C K, ALCO, CBCDIF, CMP, MG1 ####[place] [phone] Abs Neut 3.17 k/uL Normal 1.45-7.50 [facility] Comment on above: Performed By: #### C K, ALCO, CBCDIF, CMP, MG1 ####[place] [phone] Absolute nRBC <0.01 Normal <0.01 [facility] Comment on above: Performed By: #### C K, ALCO, CBCDIF, CMP, MG1 ####[place] [phone] Basophils/100 WBC (Bld) 0.6 % Normal [facility] Comment on above: Performed By: #### C K, ALCO, CBCDIF, CMP, MG1 ####[place] [phone] DTYPE Auto Diff Normal [facility] Comment on above: Performed By: #### C K, ALCO, CBCDIF, CMP, MG1 ####[place] [id number] Eosinophils (Bld) [#/Vol] 0.17 10*3/uL Normal <0.46 [facility] Comment on above: Performed By: #### C K, ALCO, CBCDIF, CMP, MG1 ####[place] [address] Eosinophils/100 WBC (Bld) 2.5 % Normal [facility] Comment on above: Performed By: #### C K, ALCO, CBCDIF, CMP, MG1 ####[place] [phone] Erythrocyte distribution width (RBC) [Ratio] 12.0 % Normal 11.5-15.0 [facility] Comment on above: Performed By: #### C K, ALCO, CBCDIF, CMP, MG1 ####[address] Hematocrit (Bld) [Volume fraction] 40.1 % Normal 36.0-46.0 [facility] Comment on above: Performed By: #### C K, ALCO, CBCDIF, CMP, MG1 ####[place] [phone] Hemoglobin (Bld) [Mass/Vol] 13.2 g/dL Normal 11.5-15.5 [facility] Comment on above: Performed By: #### C K, ALCO, CBCDIF, CMP, MG1 ####[place] [phone] Lymphocytes (Bld) [#/Vol] 2.85 10*3/uL Normal 1.00-4.00 [facility] Comment on above: Performed By: #### C K, ALCO, CBCDIF, CMP, MG1 ####[place] [phone] Lymphocytes/100 WBC (Bld) 42.0 % Normal [facility] Comment on above: Performed By: #### C K, ALCO, CBCDIF, CMP, MG1 ####[place] [phone] MCH 31.8 pG Normal 26.0-34.0 [facility] Comment on above: Performed By: #### C K, ALCO, CBCDIF, CMP, MG1 ####[place] [phone] MCHC (RBC) [Mass/Vol] 32.9 g/dL Normal 30.5-36.0 [facility] Comment on above: Performed By: #### C K, ALCO, CBCDIF, CMP, MG1 ####[place] [phone] MCV (RBC) [Entitic vol] 96.6 fL Normal 80.0-100.0 [facility] Comment on above: Performed By: #### C K, ALCO, CBCDIF, CMP, MG1 ####[place] [address] Monocytes/100 WBC (Bld) 8.1 % Normal [facility] Comment on above: Performed By: #### C K, ALCO, CBCDIF, CMP, MG1 ####[place] [phone] Neutrophils/100 WBC (Bld) 46.8 % Normal [facility] Comment on above: Performed By: #### C K, ALCO, CBCDIF, CMP, MG1 ####[place] [phone] NRBCs 0.0 /100 WBC Normal 0 [facility] Comment on above: Performed By: #### C K, ALCO, CBCDIF, CMP, MG1 ####[place] [phone] Platelet mean volume (Bld) [Entitic vol] 10.7 fL Normal 9.0-12.7 [facility] Comment on above: Performed By: #### C K, ALCO, CBCDIF, CMP, MG1 ####[place] [phone] Platelets (Bld) [#/Vol] 183 10*3/uL Normal 150-400 [facility] Comment on above: Performed By: #### C K, ALCO, CBCDIF, CMP, MG1 ####[place] [phone] RBC (Bld) [#/Vol] 4.15 10*6/uL Normal 3.90-5.20 [facility] Comment on above: Performed By: #### C K, ALCO, CBCDIF, CMP, MG1 ####[place] [phone] WBC (Bld) [#/Vol] 6.79 10*3/uL Normal 3.70-11.00 [facility] Comment on above: Performed By: #### C K, ALCO, CBCDIF, CMP, MG1 ####[address], [place] [phone] CKon 03-06-2021 CK [Catalytic activity/Vol] 103 U/L Normal 30-220 [facility] Comment on above: Performed By: #### C K, ALCO, CBCDIF, CMP, MG1 ####[facility] [place], [place] [phone] CONSULTon 03-06-2021 CONSULT HNO ID: [id number] Author: Saravanan Yancey MD Service: Neurology General Author Type: Resident Type: Consults Filed: 03/06/2021 5:10 PM Note Text: ----- Attestation signed by Tim Sanches MD at 03/06/2021 9:16 PM [facility] STAFF PHYSICIAN NOTE OF PERSONAL [...] her had just deplaned coming back from [place] x 3 days and she had not [...] Facility-Administered Medica (more content not included)... Normal [facility] CT BRAIN WO IVCONon 03-06-20 21 [...] Other: No depressed skull fracture is seen. Net Lead Developer (topogram) images: Non-diagnostic. IMPRESSION: No CT evidence of an acute intracranial abnormality. Other: details above. Transmission Calibration Engineer: MAVERICK Transcribe Date/Time: Mar 06 2021 3:13A Dictated by : JENN MORENO MD This examination was interpreted and the report reviewed and electronically signed by: JENN MORENO MD on Mar 06 2021 3:15AM EST [id number] Normal [facility] Comp Metabolic Panelon 03-06 Albumin [Mass/Vol] 4.6 g/dL Normal 3.5-5.0 [facility] Comment on above: Performed By: #### C K, ALCO, CBCDIF, CMP, MG1 ####[address] [phone] ALP [Catalytic activity/Vol] 67 U/L Normal 34-123 [facility] Comment on above: Performed By: #### C K, ALCO, CBCDIF, CMP, MG1 ####[address] [phone] ALT [Catalytic activity/Vol] 15 U/L Normal 0-45 [facility] Comment on above: Performed By: #### C K, ALCO, CBCDIF, CMP, MG1 ####[address] [phone] Anion gap [Moles/Vol] 10 mmol/L Normal 9-18 [facility] Comment on above: Performed By: #### C K, ALCO, CBCDIF, CMP, MG1 ####[place] [address] AST [Catalytic activity/Vol] 15 U/L Normal 7-40 [facility] Comment on above: Performed By: #### C K, ALCO, CBCDIF, CMP, MG1 ####[place] [address] Bilirubin [Mass/Vol] 0.2 mg/dL Normal 0.2-1.3 [facility] Comment on above: Performed By: #### C K, ALCO, CBCDIF, CMP, MG1 ####[place] [address] Calcium [Mass/Vol] 9.3 mg/dL Normal 8.5-10.5 [facility] Comment on above: Performed By: #### C K, ALCO, CBCDIF, CMP, MG1 ####[place] [phone] Chloride [Moles/Vol] 106 mmol/L Normal 98-110 [facility] Comment on above: Performed By: #### C K, ALCO, CBCDIF, CMP, MG1 ####[place] [phone] CO2 [Moles/Vol] 25 mmol/L Normal 23-32 [facility] Comment on above: Performed By: #### C K, ALCO, CBCDIF, CMP, MG1 ####[place] [phone] Creatinine [Mass/Vol] 0.99 mg/dL Normal 0.70-1.40 [facility] Comment on above: Performed By: #### C K, ALCO, CBCDIF, CMP, MG1 ####[place] [phone] eGFR- Amer. >60 Normal >60 [facility] Comment on above: Performed By: #### C K, ALCO, CBCDIF, CMP, MG1 ####[place] [phone] eGFR-All Other Races >60 Normal >60 [facility] Comment on above: Result Comment: eGFR [...] #### C K, ALCO, CBCDIF, CMP, MG1 ####[place] [phone] Glucose [Mass/Vol] 103 mg/dL High 65-100 [facility] Comment on above: Performed By: #### C K, ALCO, CBCDIF, CMP, MG1 ####[place] [phone] Potassium [Moles/Vol] 3.9 mmol/L Normal 3.5-5.0 [facility] Comment on above: Performed By: #### C K, ALCO, CBCDIF, CMP, MG1 ####[place] [phone] Protein [Mass/Vol] 7.1 g/dL Normal 6.0-8.4 [facility] Comment on above: Performed By: #### C K, ALCO, CBCDIF, CMP, MG1 ####[place] [phone] Sodium [Moles/Vol] 141 mmol/L Normal 132-148 [facility] Comment on above: Performed By: #### C K, ALCO, CBCDIF, CMP, MG1 ####[place] [phone] Urea nitrogen [Mass/Vol] 12 mg/dL Normal 8-25 [facility] Comment on above: Performed By: #### C K, ALCO, CBCDIF, CMP, MG1 ####[facility] [place], [place] [phone] ED NOTEon 03-06-2021 ED NOTE HNO ID: [id number] Author: Isabell Olivares RN Service: ? Author Type: Registered Nurse Type: ED Notes Filed: 03/06/2021 9:38 PM Note Text: Report to JUS Reis. [facility] ED NOTE HNO ID: [id number] Author: Isabell Olivares RN Service: ? Author Type: Registered Nurse Type: ED Notes Filed: 03/06/2021 7:16 PM Note Text: Pt up to bedside commode in room with steady gait, pt back to bed, siderails up x 2. [facility] ED NOTE HNO ID: [id number] Author: Isabell Olivares RN Service: ? Author Type: Registered Nurse Type: ED Notes Filed: 03/06/2021 6:32 PM Note Text: Meal tray arrives at the bedside. [facility] ED NOTE HNO ID: [id number] Author: Isabell Olviares RN Service: ? Author Type: Registered Nurse Type: ED Notes Filed: 03/06/2021 6:02 PM Note Text: Pt encouraged to call for dinner tray. Pt reports her headache has improved. [facility] ED NOTE HNO ID: [id number] Author: Isabell Olivares RN Service: ? Author Type: Registered Nurse Type: ED Notes Filed: 03/06/2021 5:18 PM Note Text: Pt states much improvement to her headache, resting in the room with her family, lights dimmed for comfort. [facility] ED NOTE HNO ID: [id number] Author: Isabell Olivares RN Service: ? Author Type: Registered Nurse Type: ED Notes Filed: 03/06/2021 2:48 PM Note Text: Pt reports no improvement in her headache, pt resting with lights off and warm blankets with family at bedside. No new orders at this time. Neurology paged. [facility] ED NOTE HNO ID: [id number] Author: Isabell Olivares RN Service: ? Author Type: Registered Nurse Type: ED Notes Filed: 03/06/2021 2:25 PM Note Text: MRI form faxed to MRI. Pt states she has claustrophobia with MRI, Neurology paged. [facility] ED NOTE HNO ID: [id number] Author: Isabell Olivares RN Service: ? Author Type: Registered Nurse Type: ED Notes Filed: 03/06/2021 2:04 PM Note Text: MRI Screening form given to the patient. [facility] ED NOTE HNO ID: [id number] Author: Isabell Olivares RN Service: ? Author Type: Registered Nurse Type: ED Notes Filed: 03/06/2021 1:56 PM Note Text: Pt assisted onto and off the bedpan. [facility] ED NOTE HNO ID: [id number] Author: Isabell Olivares RN Service: ? Author Type: Registered Nurse Type: ED Notes Filed: 03/06/2021 1:56 PM Note Text: Pt accucheck 100, meal tray at bedside. [facility] ED NOTE HNO ID: [id number] Author: Isabell Olivares RN Service: ? Author Type: Registered Nurse Type: ED Notes Filed: 03/06/2021 1:39 PM Note Text: Neurology at bedside with the patient. [facility] ED NOTE HNO ID: [id number] Author: Isabell Olivares RN Service: ? Author Type: Registered Nurse Type: ED Notes Filed: 03/06/2021 1:26 PM Note Text: Verbal order from Dr. Haile for 25mg PO benadryl [facility] ED NOTE HNO ID: [id number] Author: Isabell Olivares RN Service: ? Author Type: Registered Nurse Type: ED Notes Filed: 03/06/2021 11:20 AM Note Text: Pt resting in bed with seizure pads in place, pt family member sleeping in the bed with the patient, pt family member asked to not be in the bed with the patient for patient safety. [facility] ED NOTE HNO ID: [id number] Author: Jade Forte RN Service: ? Author Type: Registered Nurse Type: ED Notes Filed: 03/06/2021 11:13 AM Note Text: Patient report given to JUS Whyte [facility] ED NOTE HNO ID: [id number] Author: Isabell Olivares RN Service: ? Author Type: Registered Nurse Type: ED Notes Filed: 03/06/2021 11:02 AM Note Text: Assumed care of the patient at this time, received report from JUS Hansen. Plan of Care: - maintain patient comfort, safety and privacy - monitor for changes in condition - bed locked, low position, siderails up - call light within reach [facility] ED NOTE HNO ID: [id number] Author: Jade Forte RN Service: ? Author Type: Registered Nurse Type: ED Notes Filed: 03/06/2021 11:05 AM Note Text: Patient reports continuing to have headache. Spouse also reports had another few second seizure. House paged. [facility] ED NOTE HNO ID: [id number] Author: Jade Forte RN Service: ? Author Type: Registered Nurse Type: ED Notes Filed: 03/06/2021 10:11 AM Note Text: Called lab, breakfast tray ordered [facility] ED NOTE HNO ID: [id number] Author: Jade Forte RN Service: ? Author Type: Registered Nurse Type: ED Notes Filed: 03/06/2021 8:43 AM Note Text: Patient placed on bedpan. Patient and sheets soiled. Patient cleaned, linens changed [facility] ED NOTE HNO ID: [id number] Author: Jade Forte RN Service: ? Author Type: Registered Nurse Type: ED Notes Filed: 03/06/2021 8:31 AM Note Text: Answered patient call light. Patient requesting bedpan. Patient reports patient just had seizure . House paged and returned call. [facility] ED NOTE HNO ID: [id number] Author: Jade Forte RN Service: ? Author Type: Registered Nurse Type: ED Notes Filed: 03/06/2021 7:39 AM Note Text: Patient resting in bed. Declines breakfast at this time. Reports headache and nausea. House paged. [facility] ED NOTE HNO ID: [id number] Author: Jade Forte RN Service: ? Author Type: Registered Nurse Type: ED Notes Filed: 03/06/2021 7:07 AM Note Text: Patient report received from JUS Schuler [facility] ED PROV NOTEon 03-06-2021 ED PROV NOTE HNO ID: [id number] Author: Adeel Mauro MD Service: Hospital Medicine [...] (*) Negative (more content not included)... Normal [facility] Ethanolon 03-06-2021 Ethanol [Mass/Vol] mg/dL Normal <11 [facility] Comment on above: Performed By: #### C K, ALCO, CBCDIF, CMP, MG1 ####[place] [id number] Expedited [id number] 03-06-20 21 SARS-CoV-2 (COVID-19) RNA AZ+probe Ql (Unsp spec) UPPER RESPIRATORY TRACT SWAB Normal [facility] Comment on above: Performed By: #### E XCOVD #### [place] [phone] SARS-CoV-2 (COVID-19) RNA AZ+probe Ql (Unsp spec) Negative for COVID19 (SARS CoV2) by RT-PCR or equivalent method. Normal Negative for COVID19 (SARS CoV2) by RT-PCR or equivalent method. [facility] Comment on above: Result Comment: This test has been authorized by FDA under an Emergency Use Authorization (EUA). Performed By: #### E XCOVD #### [place] [phone] HCG Qual, Urineon 03-06-2021 Beta HCG ( test) Ql (U) Negative Normal Negative [facility] Comment on above: Performed By: #### U HCG ####[place] [phone] HISTORY PHYSICALon 1 HISTORY PHYSICAL HNO ID: [id number] Author: Adonis Mahoney MD Service: General Internal Medicine Author Type: Physician Type: HANDP Filed: 03/06/2021 6:51 AM Note Text: HISTORY AND PHYSICAL EXAMINATION * SERVICE DATE: 03/06/2021 PRIMARY CARE PHYSICIAN: Keli Strickland NP Subjective CHIEF COMPLAINT: Seizures HPI: This is a 31 year old female with a hx of seizures, diabetes, anxiety, and conversion disorder, who reportedly had a seizure at the airport [facility]. She and her boyfriend had just [...] March 06, 2021 TIME: 6:08 AM Normal [facility] Magnesiumon 03-06-2021 Magnesium [Mass/Vol] 2.1 mg/dL Normal 1.7-2.6 [facility] Comment on above: Performed By: #### C K, ALCO, CBCDIF, CMP, MG1 ####[place] [id number] [place], [place] [id number] TSHon 03-06-2021 TSH Qn 3.170 m[IU]/L Normal 0.270-4.200 [facility] Comment on above: Result Comment: [...] Greenfield et al. 2017 Guidelines of the [place] [employer] for the Diagnosis and Management of Thyroid Disease during and the . Thyroid, 2017:27:3:315-389. Performed By: #### T SH ####[place] [address] Toxicology Screen,Uron 03-06 Amphetamines, Urine Negative Normal Negative [facility] Comment on above: Result Comment: Cuto ff threshold at 1000 ng/mL. Performed By: #### U TOX2, UAWMIC #### [place] [address] Barbiturates, Urine Negative Normal Negative [facility] Comment on above: Result Comment: Cuto ff threshold at 200 ng/mL. Performed By: #### U TOX2, UAWMIC #### [place] [address] Benzodiazepines, Ur Negative Normal Negative [facility] Comment on above: Result Comment: Cuto ff threshold at 200 ng/mL. Performed By: #### U TOX2, UAWMIC #### [place] [address] Cannabinoids, Urine Negative Normal Negative [facility] Comment on above: Result Comment: Cuto ff threshold at 50 ng/mL. Performed By: #### U TOX2, UAWMIC #### [place] [address] Cocaine, Urine Negative Normal Negative [facility] Comment on above: Result Comment: Cuto ff threshold at 300 ng/mL. Performed By: #### U TOX2, UAWMIC #### [place] [address] Ethanol, Urine <11 Normal <11 [facility] Comment on above: Performed By: #### U TOX2, UAWMIC #### [place] [address] Opiates, Urine Negative Normal Negative [facility] Comment on above: Result Comment: Cuto ff threshold at 300 ng/mL. Performed By: #### U TOX2, UAWMIC #### [place] [address] Oxycodone, Urine Negative Normal Negative [facility] Comment on above: Result Comment: Cuto [...] on the same specimen through Client Services ([phone]) if contacted within 48 hours of initial testing. [1]Substance Abuse and Mental Health Services Administration (2012). Clinical Drug Testing in Primary Care Technical Assistance Publication Series 32. Department of Health and Human Services, [place], p.10. Performed By: #### U TOX2, UAWMIC #### [place] [address] Phencyclidine, Urine Negative Normal Negative [facility] Comment on above: Result Comment: Cuto ff threshold at 25 ng/mL. Performed By: #### U TOX2, UAWMIC #### [place] [address] Urinalysis with Microscopico n 03-06-2021 Bacteria Rare Critically abnormal Negative [facility] Comment on above: Performed By: #### U TOX2, UAWMIC #### [place] [address] Bilirubin, Urine Negative Normal Negative [facility] Comment on above: Performed By: #### U TOX2, UAWMIC #### [place] [address] Clarity (U) Clear Normal Clear [facility] Comment on above: Performed By: #### U TOX2, UAWMIC #### [place] [address] Color (U) Colorless Critically abnormal Yellow [facility] Comment on above: Performed By: #### U TOX2, UAWMIC #### [place] [phone] Comments SEE COMMENT Normal [facility] Comment on above: Result Comment: Micr oscopic Examination Performed Performed By: #### U TOX2, UAWMIC #### [place] [phone] Epithelial cells LM Ql (Urine sed) SEE COMMENT Critically abnormal Negative [facility] Comment on above: Result Comment: Rare Squamous Epithelial Cells Performed By: #### U TOX2, UAWMIC #### [place] [phone] Glucose Ql (U) Negative Normal Negative [facility] Comment on above: Performed By: #### U TOX2, UAWMIC #### [place] [phone] Hemoglobin/Blood,Ur Negative Normal Negative [facility] Comment on above: Performed By: #### U TOX2, UAWMIC #### [place] [phone] Ketones Ql (U) Negative Normal Negative [facility] Comment on above: Performed By: #### U TOX2, UAWMIC #### [place] [phone] Leukest Negative Normal Negative [facility] Comment on above: Performed By: #### U TOX2, UAWMIC #### [place] [phone] Nitrite Ql (U) Negative Normal Negative [facility] Comment on above: Performed By: #### U TOX2, UAWMIC #### [place] [phone] pH (U) 7.0 [pH] Normal 5.0-8.0 [facility] Comment on above: Performed By: #### U TOX2, UAWMIC #### [place] [phone] Protein, Urine Negative Normal Negative [facility] Comment on above: Performed By: #### U TOX2, UAWMIC #### [phone] RBC Rare Critically abnormal Negative [facility] Comment on above: Performed By: #### U TOX2, UAWMIC #### [phone] Specific [place], Ur 1.007 Normal 1.005-1.030 [facility] Comment on above: Performed By: #### U TOX2, UAWMIC #### [place] [phone] Urobilinogen (U) [Mass/Vol] Negative Normal Negative [facility] Comment on above: Performed By: #### U TOX2, UAWMIC #### [place] [phone] WBC Rare Critically abnormal Negative [facility] Comment on above: Performed By: #### U TOX2, UAWMIC #### [phone] Vital Signs Date Time Vital Sign Value Performing Clinician Facility 11-12-2023 14:42-0400 Body height 165.1 cm [facility] 11-12-2023 14:42-0400 Body mass index (BMI) [Ratio] 38.7 kg/m2 [facility] 11-12-2023 14:42-0400 Body temperature 98.4 [degF] [facility] 11-12-2023 14:42-0400 Body weight 105.68 kg [facility] 11-12-2023 14:42-0400 Diastolic blood pressure 90 mm[Hg] [facility] 11-12-2023 14:42-0400 Heart rate 101 /min [facility] 11-12-2023 14:42-0400 Respiratory rate 18 /min [facility] 11-12-2023 14:42-0400 SaO2% (BldA) [Mass fraction] 98 % [facility] 11-12-2023 14:42-0400 Systolic blood pressure 120 mm[Hg] [facility] 10-08-2023 16:13-0400 Body height 165.1 cm [facility] 10-08-2023 16:13-0400 Body mass index (BMI) [Ratio] 39.7 kg/m2 [facility] 10-08-2023 16:13-0400 Body temperature 96.9 [degF] [facility] 10-08-2023 16:13-0400 Body weight 108.4 kg [facility] 10-08-2023 16:13-0400 Diastolic blood pressure 82 mm[Hg] [facility] 10-08-2023 16:13-0400 Heart rate 99 /min [facility] 10-08-2023 16:13-0400 Respiratory rate 16 /min [facility] 10-08-2023 16:13-0400 SaO2% (BldA) [Mass fraction] 97 % [facility] 10-08-2023 16:13-0400 Systolic blood pressure 132 mm[Hg] [facility] 08-27-2023 16:34-0400 Body height 165.1 cm DO Mario Pee Work Phone: [facility] 08-27-2023 16:34-0400 Body mass index (BMI) [Ratio] 39.7 kg/m2 DO Mario Pee Work Phone: [facility] 08-27-2023 16:34-0400 Body temperature 97.9 [degF] DO Mario Pee Work Phone: [facility] 08-27-2023 16:34-0400 Body weight 108.4 kg DO Mario Pee Work Phone: [facility] 08-27-2023 16:34-0400 Diastolic blood pressure 80 mm[Hg] DO Mario Pee Work Phone: [facility] 08-27-2023 16:34-0400 Heart rate 70 /min DO Mario Pee Work Phone: [facility] 08-27-2023 16:34-0400 Respiratory rate 18 /min DO Mario Pee Work Phone: [facility] 08-27-2023 16:34-0400 SaO2% (BldA) [Mass fraction] 98 % DO Mario Pee Work Phone: [facility] 08-27-2023 16:34-0400 Systolic blood pressure 130 mm[Hg] DO Mario Pee Work Phone: [facility] 08-07-2023 10:53-0400 Body height 165.1 cm [employer] PA-C Work Phone: [facility] 08-07-2023 10:53-0400 Body weight 105.23 kg [employer] PA-C Work Phone: [facility] 07-07-2023 10:40-0400 Body temperature 98.2 [degF] DO Mario Pee Work Phone: [facility] 07-07-2023 10:40-0400 Diastolic blood pressure 74 mm[Hg] DO Mario Pee Work Phone: [facility] 07-07-2023 10:40-0400 Heart rate 70 /min DO Mario Pee Work Phone: [facility] 07-07-2023 10:40-0400 Respiratory rate 18 /min DO Mario Pee Work Phone: [facility] 07-07-2023 10:40-0400 SaO2% (BldA) [Mass fraction] 98 % DO Mario Pee Work Phone: [facility] 07-07-2023 10:40-0400 Systolic blood pressure 135 mm[Hg] DO Mario Pee Work Phone: [facility] 06-03-2023 18:00-0500 Diastolic blood pressure 75 mm[Hg] DO Mario Pee Work Phone: [facility] 06-03-2023 18:00-0500 Heart rate 72 /min DO Mario Pee Work Phone: [facility] 06-03-2023 18:00-0500 Respiratory rate 16 /min DO Mario Pee Work Phone: [facility] 06-03-2023 18:00-0500 SaO2% (BldA) [Mass fraction] 98 % DO Mario Pee Work Phone: [facility] 06-03-2023 18:00-0500 Systolic blood pressure 116 mm[Hg] DO Mario Pee Work Phone: [facility] 06-03-2023 13:34-0500 Body height 165.1 cm DO Mario Pee Work Phone: [facility] 06-03-2023 13:34-0500 Body temperature 98.2 [degF] DO Mario Pee Work Phone: [facility] 06-03-2023 13:34-0500 Body weight 103.87 kg DO Mario Pee Work Phone: [facility] 04-01-2023 14:00-0500 Body height 165.1 cm DO Mario Pee Work Phone: [facility] 04-01-2023 14:00-0500 Body weight 103.87 kg DO Mario Pee Work Phone: [facility] 04-01-2023 14:00-0500 Diastolic blood pressure 78 mm[Hg] DO Mario Pee Work Phone: [facility] 04-01-2023 14:00-0500 Systolic blood pressure 118 mm[Hg] DO Mario Pee Work Phone: [facility] 01-29-2023 10:15-0400 Body height 165.1 cm Mario Pee Other [employer] Other 01-29-2023 10:15-0400 Body mass index (BMI) [Ratio] 37.27 kg/m2 Mario Pee Other [facility] Other 01-29-2023 10:15-0400 Body temperature 96.9 [degF] Mario Pee Other [facility] Other 01-29-2023 10:15-0400 Body weight 101.61 kg Mario Pee Other [facility] Other 01-29-2023 10:15-0400 Diastolic blood pressure 70 mm[Hg] Mario Pee Other [facility] Other 01-29-2023 10:15-0400 Respiratory rate 20 /min Mario Pee Other [facility] Other 01-29-2023 10:15-0400 SaO2% (BldA) [Mass fraction] 99 % Mario Pee Other [facility] Other 01-29-2023 10:15-0400 Systolic blood pressure 110 mm[Hg] Mario Pee Other [facility] Other 12-12-2022 15:15-0400 Body height 165.1 cm Mario Pee Other [facility] Other 12-12-2022 15:15-0400 Body mass index (BMI) [Ratio] 37.77 kg/m2 Mario Pee Other [facility] Other 12-12-2022 15:15-0400 Body weight 102.97 kg Mario Pee Other [employer] Other 12-12-2022 15:15-0400 Diastolic blood pressure 60 mm[Hg] Mario Pee Other [facility] Other 12-12-2022 15:15-0400 Respiratory rate 20 /min Mario Pee Other [facility] Other 12-12-2022 15:15-0400 Systolic blood pressure 102 mm[Hg] Mario Pee Other [facility] [employer] Other 11-23-2022 01:18-0400 Diastolic blood pressure 83 mm[Hg] Kaylinn Dokken [facility] 11-23-2022 01:18-0400 Heart rate 64 /min Kaylinn Dokken [facility] 11-23-2022 01:18-0400 Mean blood pressure 94 mm[Hg] Kaylinn Dokken [facility] 11-23-2022 01:18-0400 Respiratory rate 19 /min Kaylinn Dokken [facility] 11-23-2022 01:18-0400 SaO2% (BldA) [Mass fraction] 97 % Kaylinn Dokken [facility] 11-23-2022 01:18-0400 Systolic blood pressure 117 mm[Hg] Kaylinn Dokken [facility] 11-23-2022 01:14-0400 Diastolic blood pressure 85 mm[Hg] Kaylinn Dokken [facility] 11-23-2022 01:14-0400 Heart rate 65 /min Kaylinn Dokken [facility] 11-23-2022 01:14-0400 Mean blood pressure 98 mm[Hg] Kaylinn Dokken [facility] 11-23-2022 01:14-0400 Respiratory rate 18 /min Kaylinn Dokken [facility] 11-23-2022 01:14-0400 SaO2% (BldA) [Mass fraction] 98 % Kaylinn Dokken [facility] 11-23-2022 01:14-0400 Systolic blood pressure 124 mm[Hg] Kaylinn Dokken [facility] 11-23-2022 00:00-0400 Body temperature 98.24 [degF] Kaylinn Dokken [facility] 11-23-2022 00:00-0400 Diastolic blood pressure 63 mm[Hg] Kaylinn Dokken [facility] 11-23-2022 00:00-0400 Mean blood pressure 77 mm[Hg] Kaylinn Dokken [facility] 11-23-2022 00:00-0400 SaO2% (BldA) [Mass fraction] 99 % Kaylinn Dokken [facility] 11-23-2022 00:00-0400 Systolic blood pressure 105 mm[Hg] Kaylinn Dokken [facility] 11-22-2022 22:00-0400 Heart rate 63 /min Kaylinn Dokken [facility] 11-22-2022 20:59-0400 Body temperature 98.06 [degF] Sonam Montoya [facility] 11-22-2022 20:59-0400 Respiratory rate 19 /min Sonam Montoya [facility] 11-14-2022 13:15-0400 Body height 165.1 cm Mario Pee Other [employer] Other 11-14-2022 13:15-0400 Body mass index (BMI) [Ratio] 37.77 kg/m2 Mario Pee Other [facility] Other 11-14-2022 13:15-0400 Body temperature 97.8 [degF] Mario Pee Other [facility] Other 11-14-2022 13:15-0400 Body weight 102.97 kg Mario Pee Other [facility] Other 11-14-2022 13:15-0400 Diastolic blood pressure 76 mm[Hg] Mario Pee Other [facility] Other 11-14-2022 13:15-0400 Respiratory rate 20 /min Mario Pee Other [facility] Other 11-14-2022 13:15-0400 SaO2% (BldA) [Mass fraction] 97 % Mario Pee Other [facility] Other 11-14-2022 13:15-0400 Systolic blood pressure 100 mm[Hg] Mario Pee Other [facility] Other 10-15-2022 14:45-0400 Body height 165.1 cm Mario Pee Other [facility] Other 10-15-2022 14:45-0400 Body mass index (BMI) [Ratio] 38.44 kg/m2 Mario Pee Other [facility] Other 10-15-2022 14:45-0400 Body temperature 96 [degF] Mario Pee Other [facility] Other 10-15-2022 14:45-0400 Body weight 104.78 kg Mario Pee Other [facility] Other 10-15-2022 14:45-0400 Diastolic blood pressure 78 mm[Hg] Mario Pee Other [facility] Other 10-15-2022 14:45-0400 Respiratory rate 20 /min Mario Pee Other [facility] Other 10-15-2022 14:45-0400 SaO2% (BldA) [Mass fraction] 97 % Mario Pee Other [facility] Other 10-15-2022 14:45-0400 Systolic blood pressure 122 mm[Hg] Mario Pee Other [facility] Other 09-17-2022 13:00-0400 Body height 165.1 cm Mario Pee Other [facility] Other 09-17-2022 13:00-0400 Body mass index (BMI) [Ratio] 39.27 kg/m2 Mario Pee Other [facility] Other 09-17-2022 13:00-0400 Body temperature 96.9 [degF] Mario Pee Other [facility] Other 09-17-2022 13:00-0400 Body weight 107.05 kg Mario Pee Other [facility] Other 09-17-2022 13:00-0400 Diastolic blood pressure 78 mm[Hg] Mario Pee Other [facility] Other 09-17-2022 13:00-0400 Respiratory rate 20 /min Mario Pee Other [facility] Other 09-17-2022 13:00-0400 SaO2% (BldA) [Mass fraction] 96 % Mario Pee Other [facility] Other 09-17-2022 13:00-0400 Systolic blood pressure 124 mm[Hg] Mario Pee Other [facility] Other 05-02-2022 20:23-0500 Body temperature 98 [degF] DO Mario Pee Work Phone: [facility] 05-02-2022 20:23-0500 Diastolic blood pressure 78 mm[Hg] DO Mario Pee Work Phone: [facility] 05-02-2022 20:23-0500 Heart rate 104 /min DO Mario Pee Work Phone: [facility] 05-02-2022 20:23-0500 Respiratory rate 18 /min DO Mario Pee Work Phone: [facility] 05-02-2022 20:23-0500 SaO2% (BldA) [Mass fraction] 96 % DO Mario Pee Work Phone: [facility] 05-02-2022 20:23-0500 Systolic blood pressure 125 mm[Hg] DO Mario Pee Work Phone: [facility] 05-02-2022 16:20-0500 Inhaled oxygen flow rate 3 L/min DO Mario Pee Work Phone: [facility] 05-02-2022 06:52-0500 Body height 165.1 cm DO Mario Pee Work Phone: [facility] 05-02-2022 06:52-0500 Body mass index (BMI) [Ratio] 37.9 kg/m2 DO Mario Pee Work Phone: [facility] 05-02-2022 06:52-0500 Body weight 103.4 kg DO Mario Pee Work Phone: [facility] 04-24-2022 18:09-0500 Body height 165.1 cm DO Mario Pee Work Phone: [facility] 04-24-2022 18:09-0500 Body temperature 99.1 [degF] DO Mario Pee Work Phone: [facility] 04-24-2022 18:09-0500 Body weight 104.2 kg DO Mario Pee Work Phone: [facility] 04-24-2022 18:09-0500 Diastolic blood pressure 88 mm[Hg] DO Mario Pee Work Phone: [facility] 04-24-2022 18:09-0500 Heart rate 99 /min DO Mario Pee Work Phone: [facility] 04-24-2022 18:09-0500 Respiratory rate 19 /min DO Mario Pee Work Phone: [facility] 04-24-2022 18:09-0500 SaO2% (BldA) [Mass fraction] 96 % DO Mario Pee Work Phone: [facility] 04-24-2022 18:09-0500 Systolic blood pressure 124 mm[Hg] DO Mario Pee Work Phone: [facility] 04-17-2022 15:00-0500 Body height 165.1 cm Mario Pee Other [facility] Other 04-17-2022 15:00-0500 Body mass index (BMI) [Ratio] 38.77 kg/m2 Mario Pee Other [facility] Other 04-17-2022 15:00-0500 Body temperature 97.2 [degF] Mario Pee Other [facility] Other 04-17-2022 15:00-0500 Body weight 105.69 kg Mario Pee Other [facility] Other 04-17-2022 15:00-0500 Diastolic blood pressure 82 mm[Hg] Mario Pee Other [facility] Other 04-17-2022 15:00-0500 Respiratory rate 20 /min Mario Pee Other [facility] Other 04-17-2022 15:00-0500 SaO2% (BldA) [Mass fraction] 98 % Mario Pee Other [facility] Other 04-17-2022 15:00-0500 Systolic blood pressure 124 mm[Hg] Mario Pee Other [facility] Other 04-10-2022 08:44-0500 Body height 165.1 cm DO Mario Pee Work Phone: [facility] 04-10-2022 08:44-0500 Body temperature 98.3 [degF] DO Mario Pee Work Phone: [facility] 04-10-2022 08:44-0500 Body weight 105 kg DO Mario Pee Work Phone: [facility] 04-10-2022 08:44-0500 Diastolic blood pressure 82 mm[Hg] DO Mario Pee Work Phone: [facility] 04-10-2022 08:44-0500 Heart rate 80 /min DO Mario Pee Work Phone: [facility] 04-10-2022 08:44-0500 Respiratory rate 16 /min DO Mario Pee Work Phone: [facility] 04-10-2022 08:44-0500 SaO2% (BldA) [Mass fraction] 98 % DO Mario Pee Work Phone: [facility] 04-10-2022 08:44-0500 Systolic blood pressure 125 mm[Hg] DO Mario Pee Work Phone: [facility] 12-12-2021 14:45-0400 Body height 165.1 cm Mario Pee Other [employer] [facility] [employer] Other 12-12-2021 14:45-0400 Body mass index (BMI) [Ratio] 37.27 kg/m2 Mario Pee Other [facility] Other 12-12-2021 14:45-0400 Body temperature 96.9 [degF] Mario Pee Other [facility] Other 12-12-2021 14:45-0400 Body weight 101.61 kg Mario Pee Other [facility] Other 12-12-2021 14:45-0400 Diastolic blood pressure 80 mm[Hg] Mario Pee Other [facility] Other 12-12-2021 14:45-0400 Respiratory rate 20 /min Mario Pee Other [facility] Other 12-12-2021 14:45-0400 SaO2% (BldA) [Mass fraction] 98 % Mario Pee Other [facility] Other 12-12-2021 14:45-0400 Systolic blood pressure 124 mm[Hg] Mario Pee Other [facility] Other 10-12-2021 09:30-0400 Body height 165.1 cm Mario Pee Other [facility] Other 10-12-2021 09:30-0400 Body mass index (BMI) [Ratio] 37.27 kg/m2 Mario Pee Other [facility] Other 10-12-2021 09:30-0400 Body temperature 98.3 [degF] Maroi Pee Other [facility] Other 10-12-2021 09:30-0400 Body weight 101.61 kg Mario Pee Other [facility] Other 10-12-2021 09:30-0400 Diastolic blood pressure 80 mm[Hg] Mario Pee Other [facility] Other 10-12-2021 09:30-0400 Respiratory rate 18 /min Mario Pee Other [facility] Other 10-12-2021 09:30-0400 Systolic blood pressure 110 mm[Hg] Mario Pee Other [facility] Other 09-27-2021 17:00-0400 Body height 165.1 cm Mario Pee Other [facility] Other 09-27-2021 17:00-0400 Body mass index (BMI) [Ratio] 38.1 kg/m2 Mario Pee Other [facility] Other 09-27-2021 17:00-0400 Body temperature 97.6 [degF] Mario Pee Other [facility] Other 09-27-2021 17:00-0400 Body weight 103.87 kg Mario Pee Other [facility] Other 09-27-2021 17:00-0400 Diastolic blood pressure 62 mm[Hg] Mario Pee Other [facility] Other 09-27-2021 17:00-0400 Respiratory rate 20 /min Mario Pee Other [facility] Other 09-27-2021 17:00-0400 SaO2% (BldA) [Mass fraction] 97 % Mario Pee Other [facility] Other 09-27-2021 17:00-0400 Systolic blood pressure 122 mm[Hg] Mario Pee Other [facility] Other 05-30-2021 18:15-0500 Body height 165.1 cm Mario Pee Other [facility] Other 05-30-2021 18:15-0500 Body mass index (BMI) [Ratio] 37.6 kg/m2 Mario Pee Other [facility] Other 05-30-2021 18:15-0500 Body temperature 97.3 [degF] Mario Pee Other [facility] Other 05-30-2021 18:15-0500 Body weight 102.51 kg Mario Pee Other [facility] Other 05-30-2021 18:15-0500 Diastolic blood pressure 82 mm[Hg] Mario Pee Other [facility] Other 05-30-2021 18:15-0500 Respiratory rate 20 /min Mario Pee Other [facility] Other 05-30-2021 18:15-0500 SaO2% (BldA) [Mass fraction] 97 % Mario Pee Other [facility] Other 05-30-2021 18:15-0500 Systolic blood pressure 122 mm[Hg] Mario Pee Other [facility] Other 05-02-2021 18:30-0500 Body height 165.1 cm Mario Pee Other [facility] Other 05-02-2021 18:30-0500 Body mass index (BMI) [Ratio] 36.77 kg/m2 Mario Pee Other [facility] Other 05-02-2021 18:30-0500 Body temperature 97.6 [degF] Mario Pee Other [facility] Other 05-02-2021 18:30-0500 Body weight 100.25 kg Mario Pee Other [facility] Other 05-02-2021 18:30-0500 Diastolic blood pressure 70 mm[Hg] Mario Pee Other [facility] Other 05-02-2021 18:30-0500 Respiratory rate 20 /min Mario Pee Other [facility] Other 05-02-2021 18:30-0500 SaO2% (BldA) [Mass fraction] 96 % Mario Pee Other [facility] Other 05-02-2021 18:30-0500 Systolic blood pressure 118 mm[Hg] Mario Pee Other [facility] Other Encounters Encounter Date Encounter Type Care Provider Facility Start: 11-12-2023 End: 11-12-2023 [facility] Work Phone: Start: 11-12-2023 End: 11-12-2023 Patient encounter procedure [facility] Work Phone: Start: 10-08-2023 End: 10-08-2023 ambulatory [facility] Work Phone: Start: 10-08-2023 End: 10-08-2023 Patient encounter procedure [facility] Work Phone: Start: 10-08-2023 End: 10-08-2023 ambulatory VASU WILCOX Not Available Start: 09-12-2023 Telephone encounter Franchesca MONTEZC Work Phone: [facility] Start: 09-11-2023 Telephone encounter Lou Milelr RN Work Phone: Mammography Comment on above: Results Start: 09-08-2023 End: 09-08-2023 ambulatory FRANCHESCA CASTREJON Facility:[facility] Start: 09-08-2023 End: 09-08-2023 Subsequent hospital visit by physician Procedure Mammo [facility] Comment on above: Fibrocystic breast c hanges of both breasts [N60.11, N60.12] Start: 09-02-2023 Non-patient / Non-visit [facility] Work Phone: Start: 08-27-2023 End: 08-27-2023 ambulatory DO Mario M. Pee Work Phone: [facility] Work Phone: Start: 08-27-2023 End: 08-27-2023 Patient encounter procedure DO Mario Pee Work Phone: [facility] Work Phone: Start: 08-13-2023 Non-patient / Non-visit DO Set h Pee Work Phone: [facility] Work Phone: Start: 08-11-2023 Telephone encounter Franchesca lamas PA-C Work Phone: [facility] Start: 08-07-2023 End: 08-08-2023 ambulatory KELI STRICKLAND Facility:[facility] Start: 08-07-2023 End: 08-07-2023 Subsequent hospital visit by physician [facility]o [facility] Comment on above: Fibrocystic breast c hanges of both breasts [N60.11, N60.12] Start: 08-07-2023 End: 08-07-2023 Patient encounter procedure Annamerica Dagoberto Man PA-C Work Phone: [facility] Comment on above: Mastodynia (Primary Dx); Fibrocystic breast changes of both breasts; Family history of breast cancer; Dense breasts; Nipple discharge Start: 08-06-2023 Orders Only Franchesca peterson PA-C Work Phone: [facility] Comment on above: Disorder of breast ( Primary Dx) Start: 07-30-2023 Telephone encounter Franchesca lamas PA-C Work Phone: [facility] Start: 07-25-2023 Non-patient / Non-visit DO Set h Pee Work Phone: [facility] Work Phone: Start: 07-14-2023 End: 07-14-2023 ambulatory LUCERO H ITZKOWITZ Not Available Start: 07-07-2023 Non-patient / Non-visit DO Set h Pee Work Phone: [facility] Work Phone: Start: 07-07-2023 End: 07-08-2023 ambulatory Lucero Itzkowitz Facility:[facility] Start: 07-07-2023 End: 07-07-2023 Admission to same day surgery center DO Mario Pee Work Phone: [facility] Start: 07-07-2023 End: 07-07-2023 ambulatory DO Mario M. Pee Work Phone: [facility] Work Phone: Start: 07-02-2023 End: 07-02-2023 ambulatory LUCERO H ITZKOWITZ Not Available Start: 07-01-2023 Non-patient / Non-visit DO Set h Pee Work Phone: [facility] Work Phone: Start: 06-30-2023 End: 06-30-2023 ambulatory LUCERO BELLE Not Available Start: 06-30-2023 Non-patient / Non-visit DO Set h Pee Work Phone: [facility] Work Phone: Start: 06-25-2023 End: 06-25-2023 ambulatory RELL GARCIA Not Available Start: 06-18-2023 End: 06-18-2023 ambulatory RELL GARCIA Not Available Start: 06-06-2023 Non-patient / Non-visit DO Set h Pee Work Phone: [facility] Work Phone: Start: 06-03-2023 End: 06-03-2023 Emergency department patient visit Mario M. Pee Facility:[facility] Start: 06-03-2023 End: 06-03-2023 Emergency department patient visit DO Mario Pee Work Phone: [facility] Work Phone: Start: 05-07-2023 End: 05-07-2023 ambulatory Mario Pee Other [facility] [employer] Other Start: 05-07-2023 Telephone encounter Mario Pee [facility] Start: 04-01-2023 End: 04-01-2023 Patient encounter procedure DO Mario Pee Work Phone: [facility] Work Phone: Start: 03-21-2023 End: 03-21-2023 ambulatory Mario Pee Other [facility] [employer] Other Start: 03-21-2023 Telephone encounter Mario Pee [facility] Start: 02-13-2023 End: 02-13-2023 ambulatory Mario Pee Other [facility] Other Start: 02-13-2023 Telephone encounter Mario Pee [facility] Start: 01-29-2023 End: 01-29-2023 ambulatory Mario Pee Other [facility] Other Start: 01-29-2023 Office outpatient vi sit 15 minutes Mario Pee [facility] Start: 01-21-2023 End: 01-21-2023 ambulatory Mario Pee Other [facility] Other Start: 01-21-2023 Telephone encounter Mario Pee [facility] Start: 01-01-2023 End: 01-02-2023 ambulatory Erin Chavez Facility:[facility] Start: 01-01-2023 End: 01-01-2023 Patient encounter procedure Erin Chavez [facility] Start: 12-20-2022 End: 12-20-2022 ambulatory Mario Pee Other [facility] Other Start: 12-20-2022 Telephone encounter Mario Pee [facility] Start: 12-12-2022 End: 12-12-2022 ambulatory Mario Pee Other [facility] Other Start: 12-12-2022 Office outpatient vi sit 15 minutes Mario Pee [facility] Start: 11-22-2022 End: 11-23-2022 Emergency department patient visit DO Sonam Montoya Facility:[facility] Start: 11-22-2022 End: 11-23-2022 Emergency department patient visit Sonam Montoya [facility] Start: 11-20-2022 End: 11-20-2022 ambulatory Mario Pee Other [facility] Other Start: 11-20-2022 Telephone encounter Mario Pee [facility] Start: 11-14-2022 End: 11-14-2022 ambulatory Mario Pee Other [facility] Other Start: 11-14-2022 Office outpatient vi sit 15 minutes Mario Pee [facility] Start: 10-15-2022 End: 10-15-2022 ambulatory Mario Pee Other [facility] Other Start: 10-15-2022 Office outpatient vi sit 25 minutes Mario Pee [facility] Start: 10-09-2022 End: 10-09-2022 ambulatory Mario Pee Other [facility] Other Start: 10-09-2022 Telephone encounter Mario Pee [facility] Start: 09-17-2022 End: 09-17-2022 ambulatory Mario Pee Other [facility] Other Start: 09-17-2022 Office outpatient vi sit 15 minutes Mario Epe [facility] Start: 09-17-2022 Telephone encounter Mario Pee [facility] Start: 08-13-2022 End: 08-14-[address] MARIO Cullen PEE Facility:[facility] Start: 08-12-2022 End: 08-13-[address] MARIO Cullen PEE Facility:[facility] Start: 08-09-2022 End: 08-09-2022 ambulatory Mario Pee Other [facility] Other Start: 08-09-2022 Telephone encounter Mario Pee [facility] Start: 07-08-2022 End: 07-08-2022 ambulatory Vi Benites Other [facility] Other Start: 07-08-2022 Telephone encounter Vi Mackwood [facility] Start: 06-17-2022 End: 06-17-2022 ambulatory Mario Pee Other [facility] Other Start: 06-17-2022 Telephone encounter Mario Pee [facility] Start: 06-14-2022 End: 06-14-2022 ambulatory DO Mario M. Pee Work Phone: [facility] Work Phone: Start: 06-14-2022 End: 06-14-2022 Departed Referred DO Mario Pee Work Phone: [facility] Work Phone: Start: 06-07-2022 End: 06-07-2022 ambulatory Mario Pee Other [facility] Other Start: 06-07-2022 Telephone encounter Mario Pee [facility] Start: 05-09-2022 End: 05-09-2022 ambulatory Mario Pee Other [facility] Other Start: 05-09-2022 Telephone encounter Mario Pee [facility] Start: 05-06-2022 End: 05-06-2022 ambulatory Mario Pee Other [facility] Other Start: 05-06-2022 Telephone encounter Mario Pee [facility] Start: 05-02-2022 End: 05-02-2022 Admission to same day surgery center DO Mario Pee Work Phone: [facility] [place] Start: 05-02-2022 End: 05-02-2022 ambulatory DO Mario M. Pee Work Phone: [facility] Work Phone: Start: 04-25-2022 Telephone encounter Mario Pee [facility] Start: 04-25-2022 End: 04-25-2022 Departed Referred DO Mario Pee Work Phone: [facility] [place] Start: 04-25-2022 End: 04-25-2022 ambulatory DO Mario M. Pee Work Phone: [facility] Other Start: 04-24-2022 End: 04-24-2022 Emergency department patient visit DO Mario Pee Work Phone: [facility] Work Phone: Start: 04-23-2022 End: 04-23-2022 Patient encounter procedure DO Mario Pee Work Phone: [facility] Work Phone: Start: 04-17-2022 End: 04-17-2022 ambulatory Mario Pee Other [facility] Other Start: 04-17-2022 Office outpatient vi sit 15 minutes Mario Pee [facility] Start: 04-17-2022 Telephone encounter Mario Pee [facility] Start: 04-16-2022 End: 04-16-2022 ambulatory Mario Pee Other [facility] Other Start: 04-16-2022 Telephone encounter Mario Pee [facility] Start: 04-10-2022 End: 04-10-2022 ambulatory DO Mario M. Pee Work Phone: [facility] Work Phone: Start: 04-10-2022 End: 04-10-2022 Patient encounter procedure DO Mario Pee Work Phone: [facility] Start: 04-09-2022 End: 04-09-2022 ambulatory Mario Pee Other [facility] Other Start: 04-09-2022 Telephone encounter Mario Pee [facility] Start: 04-08-2022 End: 04-08-2022 ambulatory Mario Pee Other [facility] Other Start: 04-08-2022 Telephone encounter Mario Pee [facility] Start: 03-28-2022 End: 03-30-[address] MARIO Cullen PEE Facility:[facility] Start: 03-06-2022 End: 03-06-2022 ambulatory Mario Pee Other [facility] Other Start: 03-06-2022 Telephone encounter Mario Pee [facility] Start: 02-10-2022 End: 02-10-[address] MARIO Cullen PEE Facility:[facility] Start: 02-04-2022 End: 02-04-2022 ambulatory Mario Pee Other [facility] Other Start: 02-04-2022 Telephone encounter Mario Pee [facility] Start: 01-29-2022 End: 01-29-2022 ambulatory Mario Pee Other [facility] Other Start: 01-29-2022 Telephone encounter Mario Pee [facility] Start: 01-28-2022 End: 01-28-[address] MARIO Cullen PEE Facility:[facility] Start: 12-25-2021 End: 12-25-2021 ambulatory Mario Pee Other [facility] Other Start: 12-25-2021 Telephone encounter Mario Pee [facility] Start: 12-12-2021 End: 12-12-2021 ambulatory Mario Pee Other [facility] Other Start: 12-12-2021 Office outpatient vi sit 15 minutes Mario Pee [facility] Start: 11-26-2021 End: 11-26-2021 ambulatory Mario Pee Other [facility] Other Start: 11-26-2021 Telephone encounter Mario Pee [facility] Start: 11-21-2021 End: 11-21-2021 ambulatory Mario Pee Other [facility] Other Start: 11-21-2021 Telephone encounter Mario Pee [facility] Start: 11-05-2021 End: 11-05-2021 ambulatory Mario Pee Other [facility] Other Start: 11-05-2021 Telephone encounter Mario Pee [facility] Start: 10-29-2021 End: 10-29-[address] MARTIN M PEE Facility:[facility] Start: 10-23-2021 End: 10-23-2021 ambulatory Mario Pee Other [facility] Other Start: 10-23-2021 Telephone encounter Mario Pee [facility] Start: 10-19-2021 End: 10-19-2021 ambulatory Mario Pee Other [facility] Other Start: 10-19-2021 Telephone encounter Mario Pee [facility] Start: 10-12-2021 End: 10-12-2021 ambulatory Mario Pee Other [facility] Other Start: 10-12-2021 Office outpatient vi sit 15 minutes Mario Pee [facility] Start: 10-12-2021 Telephone encounter Mario Pee [facility] Start: 10-01-2021 End: 10-01-2021 ambulatory Mario Pee Other [facility] Other Start: 10-01-2021 Telephone encounter Mario Pee [facility] Start: 09-27-2021 End: 09-27-2021 ambulatory Mario Pee Other [facility] Other Start: 09-27-2021 Office outpatient vi sit 15 minutes Mario Pee [facility] Start: 09-18-2021 End: 09-18-2021 ambulatory Mario Pee Other [facility] Other Start: 09-18-2021 Telephone encounter Mario Pee [facility] Start: 09-10-2021 End: 09-10-2021 ambulatory Mario Pee Other [facility] Other Start: 09-10-2021 Telephone encounter Mario Pee [facility] Start: 09-05-2021 End: 09-05-2021 Patient encounter procedure Erin Chavez [facility] Start: 08-13-2021 End: 08-13-2021 ambulatory Mario Pee Other [facility] Other Start: 08-13-2021 Telephone encounter Mario Pee [facility] Start: 08-01-2021 End: 08-01-2021 ambulatory Mario Pee Other [facility] Other Start: 08-01-2021 Telephone encounter Mario Pee [facility] Start: 07-06-2021 End: 07-06-2021 ambulatory Vi [place] Other [facility] Other Start: 07-06-2021 Telephone encounter Vi Easterwood [facility] Start: 06-18-2021 End: 06-18-2021 ambulatory Mario Pee Other [facility] Other Start: 06-18-2021 Telephone encounter Mario Pee [facility] Start: 06-08-2021 End: 06-08-2021 ambulatory Mario Pee Other [facility] Other Start: 06-08-2021 Telephone encounter Mario Pee [facility] Start: 05-30-2021 End: 05-30-2021 ambulatory Mario Pee Other [facility] Other Start: 05-30-2021 Office outpatient vi sit 15 minutes Mario Pee [facility] Start: 05-21-2021 End: 05-21-2021 ambulatory Mario Pee Other [facility] Other Start: 05-21-2021 Telephone encounter Mario Pee [facility] Start: 05-09-2021 End: 05-09-2021 ambulatory Mario Pee Other [facility] Other Start: 05-09-2021 Telephone encounter Mario Pee [facility] Start: 05-08-2021 End: 05-08-2021 ambulatory Mario Pee Other [facility] Other Start: 05-08-2021 Telephone encounter Mario Pee [facility] Start: 05-02-2021 End: 05-02-2021 ambulatory Mario Pee Other [facility] Other Start: 05-02-2021 Office outpatient vi sit 15 minutes Mario Pee [facility] Procedures Date Procedure Procedure Detail Performing Clinician [...] collection please use: Cortisol PM: 2.3-11.9Performed at: [facility] [place] [id number] [place] [id number] Director: Joby Hackett PhD, Phone: [phone] Start: 08-07-2023 Us breast uni real t [...] Influenza vaccination Influenz a Vaccine (Season Ended) [facility] Start: 09-16-2023 End: 09-16-2023 Patient encounter procedure 09/16/2023 9:00 AM EDT Office Visit [place] [id number] Jackie Sutton MD [address] [place] [address] New Consult [facility] Comment on above: New Consult Start: 09-08-2023 End: 09-08-2023 Patient encounter procedure 09/08/2023 2:00 PM EDT Appointment Mammography [id number] [address] RIGHT BREAST ULTRASOUND GUIDED CORE BIOPSY Mammography Comment on above: RIGHT BREAST ULTRASO UND GUIDED CORE BIOPSY Start: 08-07-2023 End: 11-06-2023 Thyrotropin [Units/volume] in Serum or Plasma THYROID STIMULATING HORMONE Lab Routine Nipple discharge Expected: 08/07/2023, Expires: 11/06/2023 [facility] Work Phone: Comment on above: Expected: 08/07/2023 , Expires: 11/06/2023 Start: 04-21-2023 Behavioral Health Screening Behavioral Health Screening [facility] Start: 12-20-2022 Covid-19 Vaccine ( season) Covid-19 Vaccine () [facility] Start: 05-02-2022 [facility] Start: 04-25-2022 Total hysterectomy v ia vaginal approach OR Vag Hyster Lap Assist TLH/LAVH (Not Applicable) [facility] Start: 04-24-2022 Blood chemistry [facility] Start: 04-24-2022 Hepatic function panel [facility] Start: 04-24-2022 Lipase measurement [facility] Start: 04-24-2022 [facility] Start: 2019 Screening for malign ant neoplasm of cervix HPV Testing [facility] Start: 02-06-2015 Screening for malign ant neoplasm of cervix Pap Testing [facility] Start: 04-15-2014 Hepatitis B Vaccine (3 of 3 - 19+ 3-dose series) Hepatitis B Vaccine (3 of 3 - 19+ 3-dose series) [facility] Start: 02-19-2008 Hepatitis B Vaccine (1 of 3 - 19+ 3-dose series) Hepatitis B Vaccine (1 of 3 - 19+ 3-dose series) [facility] Start: 02-19-2008 Urine microalbumin profile DTaP,Tdap,Td Vaccine (1 - Tdap) [facility] Start: 2007 Hepatitis C screening Hepatitis C Sc susan [facility] Start: 2007 HIV screening HIV Screening [facility] Bacteria identified in Urine by Culture [facility] Bacteria identified in Urine by Culture [facility] End: 09-04-2024 MG Breast - bilateral Diagnostic SAJI DIAGNOSTIC BILATERAL Radiology Routine Disorder of breast 1 Occurrences starting 08/06/2023 until 09/04/2024 [facility] Work Phone: Comment on above: 1 Occurrences starti ng 08/06/2023 until 09/04/2024 Patient Education Seizures, Adult ED [facility] Work Phone: Patient referral [facility] Work Phone: SURGICAL PATHOLOGY [facility] Work Phone: Comment on above: Release Upon Orderin g for 1 Occurrences starting 09/08/2023, 1 completed [facility] Immunizations Immunization Date Immunization Notes Care Provider Tiffany workman 2014 influenza virus vaccine, unspecified formulation Franchesca Man PA-C Work Phone: [facility] NEGATED: Highlighted row has not occurred!05-16-2021 SARS-CoV-2 (COVID-19) Ad26 vaccine, recombinant Erin Scott [facility] Payers Date Payer Category Payer Self-pay [id number] 2022 Medicaid [employer] [id number] 2022-Present [phone] [address] [place] [address] Medicaid [id number] 1989 Unknown [id number] [id number] 1989 Unknown [id number] 2.16.840.1.291576.3.579.2.593 1989 Unknown [id number] 2.16.840.1.850474.3.579.2.593 1989 Unknown [id number] 2.16.840.1.610109.3.579.2.593 1989 Unknown [id number] 2.16.840.1.706066.3.579.2.593 1989 Unknown [id number] 2.16.840.1.760219.3.579.2.593 1989 Unknown [id number] 2.16.840.1.937898.3.579.2.593 1989 Unknown [id number] 2.16.840.1.360062.3.579.2.727 1989 Unknown [id number] 2.16.840.1.187511.3.579.2.727 1989 Unknown [id number] 2.16.840.1.613436.3.579.2.1259 1989 Unknown [id number] 2.16.840.1.633418.3.579.2.1259 1989 Unknown [id number] 2.16.840.1.467331.3.579.2.1259 1989 Unknown [id number] 2.16.840.1.521900.3.579.2.1259 1989 Unknown [id number] 2.16.840.1.288046.3.579.2.1259 1989 Unknown [id number] 2.16.840.1.426245.3.579.2.1259 1989 Unknown [id number] 2.16.840.1.058332.3.579.2.1259 1959 Medicaid [id number] 1959 Unknown [id number] [id number] Unknown Regular Auto/Liability [id number] Unknown [id number] [id number] Unknown [id number] [id number]1 Social History Date Type Detail Facility Start: 05-16-2021 End: 06-03-2023 Tobacco smoking status Never smoked tobacco (finding) [facility] [employer] Other Tobacco smoking status Never [facility] [employer] Start: 01-13-2023 End: 08-07-2023 Sex Assigned At Female [employer] [facility] [employer] Other Start: 1990 Sex Assigned At Female [facility] Tobacco smoking status MAIS Tobacco smoking consumption unknown [facility] Start: 01-13-2023 End: 08-07-2023 History of Social function [facility] Start: 1990 Sex Assigned At Not on file [facility] NEGATED: Highlighted row [facility] Medical Equipment Procedure Code Equipment Code Equipment Origin al Text Equipment Identifier Dates Ultrasoujnd Clip [id number] Start: 09-08-2023 Comment on above: Description: Hydroma rk coil Goals Date Patient Goal Desired Activity /State Functional Status Date Assessment Result Facility 11-22-2022 Functional Status N/A [facility] Clinical Notes 03-06-2021 to 09-12-2023 Telephone [...] is agreeable and voices understanding. Consult placed. [facility] 09-12-2023 Miscellaneous Notes Spoke to patient and relayed results from biopsy (benign FA). We discussed that because the FA is 2cm in size and bothersome it is reasonable to see a breast surgeon to discuss the possibility of excision. She is agreeable and voices understanding. Consult placed. documented in this encounter [facility] 09-11-2023 Telephone encounter Note Called pt to discuss biopsy result and recommendations. No answer, will try back tomorrow morning. [facility] 09-11-2023 Miscellaneous Notes Called pt to discuss biopsy result and recommendations. No answer, will try back tomorrow morning. 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 Almanzar. Patient will call back to assist with surgical consult appt. Dr. Almanzar is aware. 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 Almanzar. Patient will call back to assist with surgical consult appt. Dr. Almanzar is aware. documented in this encounter [facility] 09-08-2023 Instructions Formatting of th is note [...] SUPPLEMENTAL MATERIAL: Homegoing instructions REFERRAL (RECOMMENDATION): None [facility] 09-08-2023 Miscellaneous Notes AMBULATORY PATIENT EDUCATION RADIOLOGY [...] REFERRAL (RECOMMENDATION): None documented in this encounter [facility] 08-11-2023 Telephone encounter Note Spoke to patient and gave her results of over-read. She wants to proceed with biopsy. Order placed. [facility] 08-11-2023 Miscellaneous Notes Spoke to patient and gave her results of over-read. She wants to proceed with biopsy. Order placed. documented in this encounter [facility] 08-07-2023 Note HNO ID: [id number] Author: MARILYN JARRELL RT(R) Service: Radiology Author [...] PATIENT PRESENTS WITH AN IMPLANTABLE OR ATTACHED PARTS SALES REPRESENTATIVE: No RADIOLOGY DEPARTMENT: Mammography PERIPHERAL IV DATA: Not applicable SIGNED BY: RT Campos(R) August 07, 2023 12:36 PM [facility] 08-07-2023 Note HNO ID: [id number] Author: FRANCHESCA MAN PA-C Service: ? Author Type: Physician Enterprise Services Manager Type: Progress Notes Filed: 08/07/2023 14:26 Note Text: MEDICAL BREAST PATIENT NAME: Sully Enriqeuz 08/07/2023 REFERRAL: She is self referred for an opinion regarding right breast biopsy. HISTORY of PRESENT ILLNESS: Sully Enriquez is a 33 year old year old premenopausal woman who presents to the [facility] [place] today for second opinion of right breast [...] seen for her breast related issues at [facility] with care as follows: 06/25/23: Diagnostic bilateral DBT and US at [facility] - RIGHT breast 8oclock 4-5cmfn hypoechoic 2cm [...] Lymph Nodes: The (more content not included)... [facility] 08-07-2023 History of Presen t illness [...] PATIENT PRESENTS WITH AN IMPLANTABLE OR ATTACHED PARTS SALES REPRESENTATIVE: No RADIOLOGY DEPARTMENT: Mammography PERIPHERAL IV DATA: Not applicable SIGNED BY: RT Campos(R) August 07, 2023 12:36 PM documented in this encounter [facility] 08-07-2023 History of Presen t illness Narrative MEDICAL BREAST PATIENT NAME: Sully Enriquez 08/07/2023 REFERRAL: She is self referred for an opinion regarding right breast biopsy. HISTORY of PRESENT ILLNESS: Sully Enriquez is a 33 year old year old premenopausal woman who presents to the [facility] [place] today for second opinion of right breast [...] seen for her breast related issues at [facility] with care as follows: 06/25/23: Diagnostic bilateral DBT and US at [facility]): - RIGHT breast 8oclock 4-5cmfn hypoechoic 2cm [...] mammograms. A prolactin was previously ordered at [facility] (06/18/23) and [facility]. A TSH was ordered today. She was referred to endocrinology. She will come back if she notices a change in the discharge or any new lumps or breast concerns. Regarding her breast pain, she is advised to completely decaffeinate her diet and have a proper bra fitting. If the pain becomes severe or persistent, she may try Evening [place] Oil 1000mg twice daily for 3-4 months. She was given a breast pain informational handout. Genetics referral made: No: Reason: n/a Chemoprevention discussion: N/A The patient is advised to exercise regularly, achieve/maintain ideal body weight, and to limit alcohol consumption to less than 7 drinks weekly for breast cancer risk reduction and overall health. Her imaging will be formally over-read by [facility] breast radiology team. Based on the results [...] which included preparing to see the patient, fvep-yt-ytpo patient care, completing clinical documentation, obtaining and/or [...] encounter. Phone: N/A Fax: Keli Strickland NP [address] [email or web address] [address] documented in this encounter [facility] 07-30-2023 Miscellaneous Notes Spoke with patient she is coming in because she states that she had a biopsy 06/2023 and was told it was fibroadenoma. Patient states that she feels like her provider is not giving her all the information and would like a second opinion. [facility] [place] I will reach out to them to retrieve any information and imaging needed for her appointment 08/07/23 with Franchesca FINNEGAN in the Breast Center [facility] contact number is [phone]. Kenia Peters MA documented in this encounter [facility] 05-07-2023 Evaluation note Encounter Date Diagnosis Assessment Notes Apr, Anxiety (ICD-10 - F41.9) [facility] 10-26-2023 Evaluation note* Encounter Date Diagnosis Assessment Notes Treatment Notes Treatment Clinical Notes Jan, Anxiety (ICD-10 - F41.9) [facility] 10-11-2023 Evaluation note* Encounter Date Diagnosis Assessment Notes Treatment Notes Treatment Clinical Notes Jan, BMI 37.0-37.9, adult (ICD-10 - Z68.37) [employer] Pratik - eRX sent. We did discuss that she needs to do a better job with the monitoring of her diet. If her weight loss does not improve, we must consider withholding medication. She voices agreement and understanding. [facility] Other 10-03-2023 Evaluation note* Encounter Date Diagnosis Assessment Notes Treatment Notes Treatment Clinical Notes Jan, Anxiety (ICD-10 - F41.9) [facility] 09-01-2023 Evaluation note* Encounter Date Diagnosis Assessment Notes Treatment Notes Treatment Clinical Notes Dec, Anxiety (ICD-10 - F41.9) [facility] 08-24-2023 Evaluation note* Encounter Date Diagnosis Assessment Notes Treatment Notes Treatment Clinical Notes Nov, BMI 37.0-37.9, adult (ICD-10 - Z68.37) [employer] Pratik -E Rx sent. No other change today. We will recheck in 1 month. [facility] Other 08-05-2023 Hospital Discharge instructions Patient Education [...] Follow these instructions at home: Medicines Take gtxp-vle-mmtdywh and prescription medicines only as told by your health care provider. Ask your health care provider if the medicine prescribed to you: ?Requires you to avoid driving or using machinery. ?Can cause constipation. You may need to take these actions to prevent or treat constipation: ?Drink enough fluid to keep your urine pale yellow. ?Take vppl-gut-mvnlgrw or prescription medicines. ?Eat foods that are [...] is important. Where to find more information [employer]: www.acog.org Office [...] provider. Document Revised: 11/08/2020 Document Reviewed: 11/08/2020 [employer] Patient Education 2022 Cmed. 11/23/2022 01:20:40 Laparoscopic Lysis of Abdominal Adhesions [...] including vitamins, herbs, eye drops, creams, and hdte-wvd-qefdsom medicines. Any problems you or family members [...] provider tells you to take them. Taking twbo-xsr-vxqhyzk medicines, vitamins, herbs, and supplements. General instructions [...] provider. Document Revised: 12/15/2020 Document Reviewed: 12/15/2020 [employer] Patient Education 2022 [employer] 11/23/2022 01:20:40 Adhesions, Zqxv-ym-Gufi Adhesions Adhesions are strings of tissue that [...] needed. Follow these instructions at home: Take wqsz-ezs-tjwrfhk and prescription medicines only as told by [...] Treatment may include medicines and surgery. Take wppw-zbt-pkvmluh and prescription medicines only as told by your doctor. This information is not intended to replace advice given to you by your health care provider. Make sure you discuss any questions you have with your health care provider. Document Revised: 12/15/2020 Document Reviewed: 12/15/2020 [employer] Patient Education 2022 Cmed. 11/23/2022 01:20:40 Abdominal Pain, Adult, Bdur-uj-Yzqs Abdominal Pain, Adult Many things can cause belly (abdominal) pain. Most times, belly pain is not dangerous. Many cases of belly pain can be watched and treated at home. Sometimes, though, belly pain is serious. Your doctor will try to find the cause of your belly pain. Follow these instructions at home: Medicines Take czjx-dtr-sqxusad and prescription medicines only as told by [...] your belly pain for any changes. Take nyvh-rab-owakqpf and prescription medicines only as told by [...] provider. Document Revised: 08/16/2019 Document Reviewed: 08/16/2019 [employer] Patient Education 2022 Cmed. Follow Up Care 11/22/2022 19:01:50 With:MARIO GLASGOW Address: [facility] [place] [id number] Business (1) When:11/26/2022 [facility]07-27-2023 Evaluation note* Encounter Date Diagnosis Assessment Notes Treatment Notes Treatment Clinical Notes Oct, BMI 37.0-37.9, adult (ICD-10 - Z68.37) [employer] - eRX sent. Call with any concerns. [facility] Other 06-27-2023 Evaluation note* Encounter Date Diagnosis [...] We will see patient back for follow-up. [facility] Other 05-30-2023 Evaluation note* Encounter Date Diagnosis Assessment Notes Treatment Notes Treatment Clinical Notes August, BMI 39.0-39.9,adult (ICD-10 - Z68.39) [facility] pratik - eRX sent. Call with any concern. [facility] Other 05-30-2023 Evaluation note* Encounter Date Diagnosis Assessment Notes Treatment Notes Treatment Clinical Notes August, BMI 39.0-39.9,adult (ICD-10 - Z68.39) [facility] Other 12-28-2022 Evaluation note* Encounter Date Diagnosis [...] year, with out any concerns with anesthesia. [facility] Other 09-06-2022 Evaluation note* Encounter Date Diagnosis Assessment Notes Treatment Notes Treatment Clinical Notes Dec, BMI 36.0-36.9,adult (ICD-10 - Z68.36) [facility] Other 08-24-2022 Evaluation note* Encounter Date Diagnosis [...] third and final prescription of the Adipex. [facility] Other 08-03-2022 Evaluation note* Encounter Date Diagnosis Assessment Notes Treatment Notes Treatment Clinical Notes Nov, BMI 36.0-36.9,adult (ICD-10 - Z68.36) [facility] Other 07-05-2022 Evaluation note* Encounter Date Diagnosis Assessment Notes Treatment Notes Treatment Clinical Notes Oct, Conjunctivitis (ICD9-CM - 372.30) [facility] Other 06-24-2022 Evaluation note* Encounter Date Diagnosis Assessment Notes Treatment Notes Treatment Clinical Notes Sep, BMI 37.0-37.9, adult (ICD-10 - Z68.37) [facility]-E Rx sent. Lengthy discussion regarding side effects as well as possible outcomes of the medication. We will see her back in 1 month. Patient to call with any concerns. [facility] Other 06-24-2022 Evaluation note* Encounter Date Diagnosis Assessment Notes Treatment Notes Treatment Clinical Notes Sep, BMI 37.0-37.9, adult (ICD-10 - Z68.37) [facility] Other 06-13-2022 Evaluation note* Encounter Date Diagnosis Assessment Notes Treatment Notes Treatment Clinical Notes Sep, BMI 38.0-38.9,adult (ICD-10 - Z68.38) [facility] Other 06-09-2022 Evaluation note* Encounter Date Diagnosis [...] psychiatric diagnoses/as well as her seizure concerns. [facility] Other 04-27-2022 Hospital Discharge instructions Patient Education [...] fried and sweet foods. General instructions Take iphc-pzs-jizqdhz and prescription medicines only as told by [...] 02/01/2010 Document Revised: 07/29/2019 Document Reviewed: 04/23/2018 [employer] Patient Education 2020 Cmed. [facility] 02-09-2022 Evaluation note* Encounter Date [...] 2mg at that time of refill need. [facility] Other 01-18-2022 Evaluation note* Encounter Date Diagnosis Assessment Notes Treatment Notes Treatment Clinical Notes Apr, Dysuria (ICD-10 - R30.0) [facility] Other 01-12-2022 Evaluation note* Encounter Date Diagnosis [...] next week. She voices agreement and understanding. [facility] Other 11-17-2021 NoteHNO ID: [id number] Author: Rosalie Haile MD Service: ? Author Type: Physician Type: Progress Notes Filed: 03/08/2021 8:38 PM Note Text: [facility] - General Progress Note SULLY ENRIQUEZ Alyse : 1990 AGE: 31 SEX: F CSN: [id number] [facility]: [facility] LOCATION: [facility] ATTENDING PHYSICIAN: Rosalie Haile M.D. DATE OF [...] follow up. Rosalie Haile M.D. Internal Medicine ESPINOZA:[id number] NoteHNO ID: [id number] Author: Saravanan Yancey MD Service: Neurology General [...] MD DPhil Neurology Resident, PGY-4 March 07, 2021[id number] NoteHNO ID: [id number] Author: JULITO Lino Service: Care Management Author Type: Conveyor Operator Type: Care Mgt Initial Assessment Filed: 03/06/2021 4:04 PM Note Text: CARE MANAGEMENT: ASSESSMENT AND DISCHARGE PLAN SERVICE DATE: March 06, 2021 SERVICE TIME: 4:00 PM PRIMARY CARE PHYSICIAN: Keli Strickland NP ADMISSION STATUS: Inpatient Needs Prior to Discharge: None [facility] 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 Last discharge within 30 days: No Advance Directive: Current Advance Directive: None Community Engagement Coordinator Attempted to Assist with AD Completion: Yes [...] None Has the Patient Been in a Nursing Home Facility in the Past 30 days?: No SOCIAL: Living Arrangements: Home Lives With: Partner;Daughter;Son Financial Resources: Employed Primary Contact: Extended Emergency Contact Information Primary Emergency Contact: jamari strong Address: [address] [place] [address] OF [facility] Mobile Relation: Significant other Secondary Emergency Contact: [...] Completely I feel financially burdened by my tnn-lv-uzuvua expenses for my prescription medication:: 0 - Disagree Completely Risk Score: 0 Patient is categorized as: Low risk < 2 Are you interested in bedside delivery of your medications? No Is Patient Psychosocially Complex?: No ASSESSMENT AND PLAN: Medical Needs: Medical Needs: None Psychosocial Needs: Psychosocial Needs: Mental Health Diagnosis Mental Health Information: Coversion d/o, anxiety FREEDOM OF CHOICE EXPLAINED: [place] of Choice Given: No Reason Not Given: No placements necessary POTENTIAL TRANSITION PLANS Home Pt presents to ED s/p seizer, headache, CP, Hx diabetes (pt adamant she does not have DM), anxiety, epilepsy, conversion disorder. Independent of ADLS and iADLS, [place] [facility] [place] [facility] with Jamari, 13 y/o dtr and 10 y/o son. Pt reports she is employed and drives. Does not utilize any DME, alf or community resources. No skilled needs identified at this time. DC transportation will be provided by [facility] [phone]. SIGNATURE: JULITO Lino PATIENT NAME: Sully Enriquez DATE: March 06, 2021 TIME: 4:00 PM PAGER/CONTACT #: [phone] HospitalEvaluation + Plan note No data available for this section [facility] evaluation noteNo InformationNort [employer] Other Evaluation noteNo assessment information available [facility] Work Phone: Evaluation note* Diagnosis Disorder of breast- Primary Unspecified breast disorder documented in this encounter [facility] note* Diagnosis Mastodynia- Primary Fibrocystic breast changes of both breasts Family history of breast cancer Family history of malignant neoplasm of breast Dense breasts Inconclusive mammogram Nipple discharge Other sign and symptom in breast documented in this encounter [facility] note* Diagnosis Disorder of breast Unspecified breast disorder Fibrocystic breast changes of both breasts Family history of breast cancer Family history of malignant neoplasm of breast Mastodynia documented in this encounter [facility] note* Diagnosis Onset Date Resolution Status Fatigue noneactive BMI 39.0-39.9,adult noneacti ve [facility] Work Phone: Evaluation note* Diagnosis Fibrocystic breast changes of both breasts Family history of breast cancer Family history of malignant neoplasm of breast Mastodynia Dense breasts Inconclusive mammogram Nipple discharge Other sign and symptom in breast Mass of right breast, unspecified quadrant documented in this encounter [facility] note* Diagnosis Breast fibroadenoma, right- Primary Fibrocystic breast changes of both breasts Mastodynia Dense breasts Inconclusive mammogram documented in this encounter [facility] note* Diagnosis Onset Date Resolution Status Fatigue noneactive BMI 39.0-39.9,adult noneacti ve BMI 39.0-39.9,adult noneacti ve [facility] Work Phone: Evaluation note* Diagnosis Onset Date Resolution Status Fatigue noneactive BMI 39.0-39.9,adult noneacti ve BMI 39.0-39.9,adult noneacti ve BMI 38.0-38.9,adult noneacti ve [facility] Work Phone: History general Narrative - Reported* [...] dif ferent times Hospitalization History Seizures 02/2021 [facility] Other [facility] general Narrative - Reported* Type Description Date [...] dif ferent times Hospitalization History Seizures 02/2021 [facility] Other [facility] general Narrative - ReportedNortLinkyt Other [facility] general Narrative - Reported* Type Description Date [...] dif ferent times Hospitalization History Seizures 02/2021 [facility] Other Hospital Discharge instructions Additional Instructions DISCHARGE [...] FOLLOW UP -[Please call the office at ([phone]) to make follow appointment before leaving the hospital]. -[2 Weeks] [ ][facility] Work Phone: Hospital Discharge instructions No data available for this section [facility] progress note No data available for this section [facility] Diagnostic Procedure Only (Routine) - Authorized Specialty Diagnoses / Procedures Referred By Nikolas guerrero Referred To Contact [facility] Diagnoses Disorder of breast Procedures SAJI DIAGNOSTIC BILATERAL DIAGNOSTIC MAMMOGRAPHY COMPUTER-AIDED DETCJ BI Franchesca Man PA-C [address] [address] [facility] [address] [email or web address] [address] Referral ID Status Reason Start Date Expiration Date Visits Requested Visits Authorized [id number] Authorized Auto-Generat ed Referral 08/06/2023 09/04/2024 1 1 [facility] for referral (narrative)* Diagnostic Procedure Only (Routine) - Closed Specialty Diagnoses / Procedures Referred By Nikolas guerrero Referred To Contact [facility] Diagnoses Fibrocystic breast changes of both breasts Family history of breast cancer Mastodynia Procedures US BREAST LTD RIGHT US BREAST UNI REAL TIME WITH IMAGE LIMITED Franchesca Man PA-C [address] [address] [facility] [address] [email or web address] [address] Referral ID Status Reason Start Date Expiration Date V isits Requested Visits Authorized [id number] Closed Auto-Generate d Referral 08/07/2023 04/20/2024 1 1 [facility] for referral (narrative)* Diagnostic Procedure Only (Routine) - Closed Specialty Diagnoses / Procedures Referred By Nikolas guerrero Referred To Contact [facility] Diagnoses Fibrocystic breast changes of both breasts Family history of breast cancer Mastodynia Dense breasts Nipple discharge Mass of right breast, unspecified quadrant Procedures US BIOPSY BREAST RIGHT BX BREAST W/DEVICE 1ST LESION ULTRASOUND GUID Franchesca Man PA-C [address] [address] [facility] [address] [email or web address] [address] Referral ID Status Reason Start Date Expiration Date V isits Requested Visits Authorized [id number] Closed Auto-Generate d Referral 08/11/2023 09/09/2024 1 1 [facility] for visit Narrative1 month Follow up, ER visit recently referrals to GI and urologistKanona [facility] Other Summary Purpose Family History Relationship Condition [...] breasts Procedures CONSULT TO GENERAL SURGERY OFFICE/OUTPATIENT [facility] 60 MINUTES Franchesca Man PA-C [address] [address] Referral ID Status Reason Start Date Expiration Date Visits Requested Visits Authorized [id number] Authorized PCP Requested Referral 09/12/2023 09/11/2024 1 1 Specialty Diagnoses / Procedures Referred By Contac t Referred To Contact Endocrinology Diagnoses Nipple discharge Procedures CONSULT TO ENDOCRINOLOGY OFFICE/OUTPATIENT [facility] 60 MINUTES Franchesca Man PA-C [address] [address] Referral ID Status Reason Start Date Expiration Date Visits Requested Visits Authorized [id number] Authorized PCP Requested Referral 08/07/2023 08/06/2024 1 1 Specialty Diagnoses / Procedures Referred By Contac t Referred To Contact [facility] Diagnoses Fibrocystic breast changes of both breasts Family history of breast cancer Mastodynia Procedures US BREAST LTD RIGHT US BREAST UNI REAL TIME WITH IMAGE LIMITED Franchesca Man PA-C [address] [address] [facility] [address] [place] [address] Referral ID Status Reason Start Date Expiration Date V isits Requested Visits Authorized [id number] Closed Auto-Generate d Referral 08/07/2023 04/20/2024 1 [...] 08:55:03 AM > Sumeet Haq DO, phone [phone]. [facility] ER recommended Additional Source Comments INFORMATION SOURCE (unrecogn ized section and content) DATE CREATED AUTHOR 03/11/2021 [facility] DATE CREATED AUTHOR AUTHOR'S ORGANIZ ATION 08/15/2022 [facility] DATE CREATED AUTHOR AUTHOR'S ORGANIZ ATION 02/15/2023 [facility] DATE CREATED AUTHOR AUTHOR'S ORGANIZ ATION 07/15/2023 [facility] DATE CREATED AUTHOR AUTHOR'S ORGANIZ ATION 09/13/2023 [facility] DATE CREATED AUTHOR AUTHOR'S ORGANIZ ATION 10/09/2023 [facility] dical Specialists [facility] REASON FOR VISIT (unrecogniz ed section and content) Reason Comments New Patient Pain in both breast, enlarged lymph node in Rt armpit. Establish care Reason Comments Radiology Mammogram Specialty Diagnoses / Procedures Referred By Nikolas guerrero Referred To Contact [facility] Diagnoses Disorder of breast Procedures SAJI DIAGNOSTIC BILATERAL DIAGNOSTIC MAMMOGRAPHY COMPUTER-AIDED DETCJ BI Franchesca Man PA-C [address] [address] [facility] [email or web address] [address] Referral ID Status Reason Start Date Expiration Date V isits Requested Visits Authorized [id number] Closed Auto-Generate d Referral 08/06/2023 09/04/2024 1 [...] LESION ULTRASOUND GUID Franchesca Man PA-C [address] [address] [facility] [address] [place] [address] Referral ID Status Reason Start Date Expiration Date V isits Requested Visits Authorized [id number] Closed Auto-Generate d Referral 08/11/2023 09/09/2024 1 [...] Provider Active St art: July 07, 2023 Business Services Associate Relationship Specialty Start Date End Date Keli Strickland NP [address] [place] [address] PCP - General Family Medicine 10/19/16 Erin Chavez MD [address] [place] [address] Urology 01/01/23 Business Services Associate Relationship Specialty Start Date End Date Keli Strickland NP [address] [place] [address] [place] [address] PCP - General Family Medicine 10/19/16 Erin Chavez MD [address] [place] [place] [address] Urology 01/01/23 Business Services Associate Relationship Specialty Start Date End Date Keli Strickland NP [address] [place] [address] [place] [address] PCP - General Family Medicine 10/19/16 Erin Chavez MD [address] [place] [address] Urology 01/01/23 Business Services Associate Relationship Specialty Start Date End Date Keli Strickland NP [address] [place] [address] [place] [id number] PCP - General Family Medicine 10/19/16 Erin Chavez MD [address] [place] [address] Urology 01/01/23 Business Services Associate Relationship Specialty Start Date End Date Keli Strickland NP [address] [place] [address] [place] [phone] PCP - General Family Medicine 10/19/16 Erin Chavez MD [address] [place] [address] Urology 01/01/23 Business Services Associate Relationship Specialty Start Date End Date Keli Strickland NP [address] [place] [id number] PCP - General Family Medicine 10/19/16 Erin Chavez MD [address] [place] [address] Urology 01/01/23 Business Services Associate Relationship Specialty Start Date End Date Keli Strickland NP [address] [facility] [address] [place] [address] PCP - General Family Medicine 10/19/16 Erin Chavez MD [address] [place] [address] Urology 01/01/23 Business Services Associate Relationship Specialty Start Date End Date Keli Strickland NP [address] [place] [address] PCP - General Family Medicine 10/19/16 Erin Chavez MD [address] [place] [address] Urology 01/01/23 Team Status: Inactive Member Role [...] or prosecute any alcohol or drug abuse patient.[facility] the event this information is protected by the Federal Confidentiality of Alcohol and Drug Abuse Patient Records regulations: The Federal rules restrict any use of the information to criminally investigate or prosecute any alcohol or drug abuse patient.[facility] the event this information is protected by the Federal Confidentiality of Alcohol and Drug Abuse Patient Records regulations: The Federal rules restrict any use of the information to criminally investigate or prosecute any alcohol or drug abuse patient.[facility] the event this information is protected by the Federal Confidentiality of Alcohol and Drug Abuse Patient Records regulations: The Federal rules restrict any use of the information to criminally investigate or prosecute any alcohol or drug abuse patient.[facility] the event this information is protected by the Federal Confidentiality of Alcohol and Drug Abuse Patient Records regulations: The Federal rules restrict any use of the information to criminally investigate or prosecute any alcohol or drug abuse patient.[facility] the event this information is protected by the Federal Confidentiality of Alcohol and Drug Abuse Patient Records regulations: The Federal rules restrict any use of the information to criminally investigate or prosecute any alcohol or drug abuse patient.[facility] the event this information is protected by the Federal Confidentiality of Alcohol and Drug Abuse Patient Records regulations: The Federal rules restrict any use of the information to criminally investigate or prosecute any alcohol or drug abuse patient.[facility] the event this information is protected by the Federal Confidentiality of Alcohol and Drug Abuse Patient Records regulations: The Federal rules restrict any use of the information to criminally investigate or prosecute any alcohol or drug abuse patient.[facility] the event this information is protected by the Federal Confidentiality of Alcohol and Drug Abuse Patient Records regulations: The Federal rules restrict any use of the information to criminally investigate or prosecute any alcohol or drug abuse patient.[facility] FOR RECORDS PERTAINING TO PATIENTS WHO ARE [...] BE BASED ON THE PRIMARY CLINICAL RECORDS. [facility] [email or web address] [facility]. provides no warranty or guarantee of the accuracy or completeness of information in this document.
--- NOTE | 2023-12-16 23:34 | ED_ITS ---
HPI HPI - Back Pain/Injury General Chief Complaint: Back Pain/Injury Stated Complaint: Back Pain Time Seen by Provider: 12/16/23 23:19 Source: patient Mode of arrival: walk-in Limitations: no limitations History of Present Illness HPI Narrative: patient presents complaining of back pain. Seen here 1-2 weeks ago for same pain. Since has been seen x2 by chiropractor . seen yesterday at chiropractor office and states she received injections in her lower back. States her pain is worse. States she has been in bed all day and has been incontinent of urine a couple of times. No pain of her lower extremity or numbness. no fever or chills. Has nausea Related Data Home Medications ?Medication ?Instructions ?Recorded ?Confirmed tizanidine 4 mg tablet 4 mg PO BEDTIME muscle spasticity 11/17/22 12/16/23 alprazolam 2 mg PO BID PRN anxiety 12/24/22 12/16/23 montelukast 10 mg tablet 10 mg PO DAILY 05/10/23 12/16/23 phentermine 37.5 mg tablet 37.5 mg PO DAILY 12/05/23 12/16/23 Previous Rx's ?Medication ?Instructions ?Recorded tramadol 50 mg tablet 50 mg PO Q8H PRN pain 3 days #9 04/27/23 tabs acetaminophen 300 mg-codeine 30 mg 1 tab PO Q6H PRN pain 3 days #12 12/05/23 tablet tabs Allergies Allergy/AdvReac Type Severity Reaction Status Date / Time nitrofurantoin Allergy Severe itching Verified 12/16/23 23:07 [From Macrobid] azithromycin [From Zithromax] Allergy Unknown Unknown Verified 12/16/23 23:07 ciprofloxacin [From Cipro] Allergy Unknown Hives Verified 12/16/23 23:07 ketorolac [From Toradol] Allergy Unknown Unknown Verified 12/16/23 23:07 metoclopramide [From Reglan] Allergy Unknown Unknown Verified 12/16/23 23:07 Penicillins Allergy Unknown Unknown Verified 12/16/23 23:07 zolpidem [From Ambien] AdvReac agitation Verified 12/16/23 23:07 Opioid HPI Opioid Management Most Recent Opioid Data: Last Pain Scale 6 07/25/23 20:44 Review of Systems ROS Status of ROS 10 or more systems reviewed and unremark able except as noted in history and below [facility] Medical History (Updated 12/16/23 @ 23:59 by Moris Guerrero MD) Kidney stones ?N20.0 - Calculus of kidney (ICD-10) POTS (postural orthostatic tachycardia syndrome) ?G90.A - Postural orthostatic tachycardia syndrome [POTS] (ICD-10) Migraines ?G43.909 - Migraine, unspecified, not intractable, without status migrainosus (ICD-10) Seizure ?R56.9 - Unspecified convulsions (ICD-10) History of anxiety ?Z86.59 - Personal history of other mental and behavioral disorders (ICD-10) History of depression ?Z86.59 - Personal history of other mental and behavioral disorders (ICD-10) History of seizure ?Z87.898 - Personal history of other specified conditions (ICD-10) Surgical History (Updated 01/22/23 @ 06:55 by Xochitl Weaver) History of colonoscopy ?Z98.890 - Other specified postprocedural states (ICD-10) History of nephrostomy History of bunionectomy of right great toe ?Z98.890 - Other specified postprocedural states (ICD-10) H/O LEEP ?Z98.890 - Other specified postprocedural states (ICD-10) S/P laparoscopy ?Z98.890 - Other specified postprocedural states (ICD-10) Hx of cystoscopy ?Z98.890 - Other specified postprocedural states (ICD-10) History of hysterectomy ?Z90.710 - Acquired absence of both cervix and uterus (ICD-10) History of tubal ligation ?Z98.51 - Tubal ligation status (ICD-10) Family History (Updated 01/14/23 @ 12:43 by Soraida Blount) Father Family history of COPD (chronic obstructive pulmonary disease) Family history of cancer Family history of myocardial infarction Social History (Updated 01/22/23 @ 06:57 by Xochitl Weaver) Within the past year, how often did you have a drink containing alcohol: monthly or less Smoking status: Never smoker Non-prescribed substance use: denies use Highest level of school completed/degree received: some college, no degree Exam Constitutional Vital Signs, click to edit/add: Last Vital Signs Temp 98.5 F 12/16/23 23:10 Pulse 88 12/16/23 23:10 Resp 16 12/16/23 23:10 BP 139/95 H 12/16/23 23:10 Pulse Ox 97 12/16/23 23:10 O2 Del Method Room Air 12/16/23 23:10 Common normals: average body habitus, oriented x3, no limitations, healthy appearing, alert and well nourished General appearance: in distress HENMT Common normals: normocephalic and head/scalp atraumatic Eye Common normals: EOMs intact bilaterally and conjunctivae normal Respiratory Common normals: normal respiratory effort, no retractions, no use of accessory muscles and clear to auscultation bilaterally Cardio Common normals: regular rate, regular rhythm, S1 normal heart sound and S2 normal heart sound GI Common normals: Normal to inspection, nondistended, normoactive bowel sounds present, soft to palpation and non-tender Extremity Common normals: normal to inspection and full ROM Neuro Common normals: oriented x3, CN's II-XII intact bilaterally, moves all extremities, no focal motor deficits and no sensory deficits noted Psych Appearance: grossly normal Course Vital Signs Vital signs: Vital Signs Temperature 98.5 F 12/16/23 23:10 Pulse Rate 88 12/16/23 23:10 Respiratory Rate 16 12/16/23 23:10 Blood Pressure 139/95 H 12/16/23 23:10 Pulse Oximetry 97 12/16/23 23:10 Oxygen Delivery Method Room Air 12/16/23 23:10 Temperature 98.5 F 12/16/23 23:10 Pulse Rate 88 12/16/23 23:10 Respiratory Rate 16 12/16/23 23:10 Blood Pressure 139/95 H 12/16/23 23:10 Pulse Oximetry 97 12/16/23 23:10 Oxygen Delivery Method Room Air 12/16/23 23:10 MDM - Back Pain/Injury MDM Narrative Medical decision making narrative: presents with worsening lower back pain over the past week. Now complaining of urinary incontinence x 2 today. No weakness or numbness of her lower extremities. Discussed with oncall Neuro surgery Dr Amado at [facility] who agrees transfer is appropriate. will plan to discuss with ER attending as well need to r/o cauda equina Discussed with ER attending Dr Hilton and patient accepted in transfer [facility] will not have a team to transfer the patient until more than 7 hours from now. Patient and her male partner informed and they are going by private car . Patient has saline lock in place. Advised to go directly to the ER Lab Data Labs: Lab Results 12/17/23 Range/Units 00:01 WBC 6.7 (4.0-11.0) 10^3/uL RBC 4.44 (4.20-5.40) 10^6/uL Hgb 14.4 (12.0-16.0) g/dL Hct 42.3 (36.0-48.0) % MCV 95.3 (81.0-99.0) fL MCH 32.4 (26.7-34.0) pg MCHC 34.0 (29.9-35.2) g/dL RDW 11.9 (11.0-15.0) % Plt Count 218 (150-450) 10^3/uL MPV 10.7 (9.5-13.5) fL Neut % (Auto) 50.2 (43.0-75.0) % Lymph % (Auto) 40.7 (20.5-60.0) % [place] % (Auto) 7.2 (1.7-12.0) % Eos % (Auto) 1.2 (0.9-7.0) % Baso % (Auto) 0.4 (0.2-2.0) % Neut # (Auto) 3.4 (1.4-6.5) 10^3/uL Lymph # (Auto) 2.7 (1.2-3.8) 10^3/uL [place] # (Auto) 0.5 (0.3-0.8) 10^3/uL Eos # (Auto) 0.1 (0.0-0.7) 10^3/uL Baso # (Auto) 0.0 (0.0-0.1) 10^3/uL Abs Immat Gran (auto) 0.02 (0.00-0.03) 10^3/uL Imm/Tot Granulo (auto) 0.3 (0.0-0.5) % ESR 17 (<=20) mm/hr Sodium 139 (136-145) mmol/L Potassium 3.5 (3.5-5.1) mmol/L Chloride 103 (98-107) mmol/L Carbon Dioxide 26.5 (21.0-32.0) mmol/L Anion Gap 13.0 BUN 9.0 (7.0-18.0) mg/dL Creatinine 0.94 (0.55-1.02) mg/dL Est GFR ( Amer) >60 (>=60) Est GFR (Non-Af Amer) >60 (>=60) BUN/Creatinine Ratio 9.6 Glucose 95 (74-106) mg/dL Calcium 8.9 (8.5-10.1) mg/dL C-Reactive Protein <0.50 (<=0.50) mg/dL Discharge Plan Discharge Chief Complaint: Back Pain/Injury Clinical Impression: Low back pain, Urinary incontinence Patient Disposition: [facility] Discharge Location: [facility] Discharge location: go directly to [facility]
[2023-12-17] MEDS: ONDANSETRON PF 4 MG/2 ML VIAL IV (00:09)
[2023-12-17 00:11] LABS: Basophils Percent Auto 0.4 % (0.2-2.0); Eosinophils Absolute Auto 0.1 10^3/uL (0.0-0.7); Eosinophils Percent Auto 1.2 % (0.9-7.0); Hematocrit 42.3 % (36.0-48.0); Hemoglobin 14.4 g/dL (12.0-16.0); Immature Granulocytes Abs Auto 0.02 10^3/uL (0.00-0.03); Immature Granulocytes Pct Auto 0.3 % (0.0-0.5); Lymphocytes Absolute Auto 2.7 10^3/uL (1.2-3.8); Lymphocytes Percent Auto 40.7 % (20.5-60.0); Mean Corpuscular Hemoglobin 32.4 pg (26.7-34.0); Mean Corpuscular Volume 95.3 fL (81.0-99.0); Mean Platelet Volume 10.7 fL (9.5-13.5); Monocytes Absolute Auto 0.5 10^3/uL (0.3-0.8); Monocytes Percent Auto 7.2 % (1.7-12.0); Neutrophils Absolute Auto 3.4 10^3/uL (1.4-6.5); Neutrophils Percent Auto 50.2 % (43.0-75.0); Platelet Count 218 10^3/uL (150-450); Red Blood Count 4.44 10^6/uL (4.20-5.40); Red Cell Distribution Width 11.9 % (11.0-15.0); White Blood Count 6.7 10^3/uL (4.0-11.0)
[2023-12-17 00:17] LABS: Erythrocyte Sedimentation Rate 17 mm/hr (<=20)
[2023-12-17 00:20] LABS: BUN Creatinine Ratio 9.6; Calcium 8.9 mg/dL (8.5-10.1); Carbon Dioxide 26.5 mmol/L (21.0-32.0); Chloride 103 mmol/L (98-107); Estimated GFR (African America >60 (>=60); Estimated GFR (Non-African Ame >60 (>=60); Glucose 95 mg/dL (74-106); Potassium 3.5 mmol/L (3.5-5.1); Sodium 139 mmol/L (136-145)
[2023-12-17 00:27] LABS: C Reactive Protein <0.50 mg/dL (<=0.50)
== END 2023-12-17 00:52 | disposition short-term general hospital (02) ==
PROVIDERS: Emergency Provider Internal Medicine; PCP Family Medicine
DX: M54.50 Low back pain, unspecified (principal); R32 Unspecified urinary incontinence
CPT/HCPCS: 36415; 80048; 85025; 85652; 86140; 96374; 99285; J2405

== ENCOUNTER 2024-03-21 19:14 | Emergency (ER) | payer OTHER, SELFPAY ==
[2024-03-21 19:17] VITALS: BP 102/84; PULSE 85; TEMP 37; O2SAT 98; BMI 37.6
--- OUTSIDE RECORDS SUMMARY | 2024-03-21 19:24 | XMS_ITS | CCD ---
Author Organization [facility] Care Team Providers Care Labor Commissioner Name Role Phone MARIO GLASGOW Primary Care Physician Carol Ann Chacon Unavailable Unavailable Mario Glasgow Unavailable Vi Benites Unavailable DO Mario Glasgow Primary Care Provider DO Rell Garcia Attending Provider DO Jose Cade Emergency Provider DO Mario Glasgow Attending Provider [phone] DR MARIO GLASGOW Primary Care Unavailable MARKER ., DR HOPKINS Admitting Unavailable MARKER ., DR HOPKINS Attending Unavailable MARKER ., DR HOPKINS Consulting Unavailable PEE, DR MARIO Cullen Primary Care Unavailable SUKHDEV, CAMILLE Admitting Unavailable CAMILLE GUERRERO Attending Unavailable ROSAURA .SIVAN Consulting Unavailani e CAMILLE GUERRERO Consulting Unavailable PEE, DR MARIO Cullen Primary Care Unavailable SUKHDEV, CAMILLE Admitting Unavailable CAMILLE GUERRERO Attending Unavailable CAMLILE GUERRERO Consulting Unavailable ROC ARNOLD Consulting Unavailable PEE, DR MARIO Cullen Primary Care Unavailable SUKHDEV, CAMILLE Admitting Unavailable CAMILLE GUERRERO Attending Unavailable CAMILLE GUERRERO Consulting Unavailable PEE, DR MARIO Cullen Primary Care Unavailable LORI ., QUINTIN Admitting Unavailable LORI Ng, QUINTIN Attending Unavailable Richelle Bush Consulting Unavailable QUINTIN SHI Consulting Unavailable PEE, DR MARIO Cullen Primary Care Unavailable SUKHDEV, CAMILLE Admitting Unavailable CAMILLE GUERRERO Attending Unavailable PHYLICIA ALFRED Consulting Unavailable SUKHDEV, CAMILLE Consulting Unavailable JASS GRISSOM Consulting Unavailable PEE, DR MARIO Cullen Primary Care Unavailable SUKHDEV, CAMILLE Admitting Unavailable CAMILLE GUERRERO Attending Unavailable SIVAN DORSEY Consulting Unavailabl e CAMILLE GUERRERO Consulting Unavailable LIZZIE YU Consulting Unavailable Erin Chavez Attending Unavailable DO Sonam Montoya Attending Unavailable Pee, DO Mario M. Primary Care Provider KIKE Alvarez Emergency Provider Pee, DO Mario M. Primary Care Provider KIKE Alvarez Emergency Provider Itgueritatz, DO Luecro Attending Provider Em LASSITER, Keli Cervantes Primary Care Provider [phone] Erin Chavez MD Unavailable Em LASSITER, Keli Cervantes Primary Care Provider [phone] RELL GARCIA Attending Unavailable RELL GARCIA Referring Unavailable RELL GARCIA Referring Unavailable ITZKOWITZ, LUCERO H Attending Unavailable RELL GARCIA Referring Unavailable ITZKOWITZ, LUCERO H Attending Unavailable PEE, MARIO Referring Unavailable ITZKOLESLIETZ, LUCERO H Attending Unavailable VASU HILTON Attending Unavailable CAMILLE GUERRERO Referring Unavailable ANASTASIA HILTON Attending Unavailable ANASTASIA HILTON Referring Unavailable Pee, DO Mario Morton Attending Provider [phone] Mario Glasgow DO Primary Care Provider [phone] Bhanu Alvarez Admitting Unavailable Bhanu Alvarez Attending Unavailable Pee, Mario M. Primary Care Unavailable Itzkowitz, Lucero Attending Unavailable Pee, Mario M. Primary Care Unavailable Itzkowitz, Lucero Admitting Unavailable Pee, Mario M. Admitting Unavailable Pee, Mario M. Attending Unavailable Pee, DO Mario M. Attending Provider FRANCHESCA MAN Referring Unavailable KELI STRICKLAND Primary Care Unavailable MARIO GLASGOW Primary Care Unavailable TIFFANY, ADELE JULIENNE Referring Unavailabl e SHABBIRADELE JEFFERSON Admitting Unavailabl e CHICHURA, ADELE ROBINS Attending Unavailabl e SPETTELKELI Primary Care Unavailable PEE, [facility] Primary Care Unavailable CHICHURA, ADELE ROBINS Referring Unavailabl e PEE, [facility] Primary Care Unavailable CHICHURA, ADELE ROBINS Referring Unavailabl e PEE, [facility] Primary Care Unavailable CHICHURA, ADELE ROBINS Referring Unavailabl e GREENHOUSE, FRANCHESCA Arenas Referring Unavailable CHICHURA, ADELE ROBINS Attending Unavailabl e SPETTELKELI Primary Care Unavailable PEE, [facility] Primary Care Unavailable SANCHEZ, ANASTASIA Attending Unavailable SANCHEZ, ANASTASIA Attending Unavailable PEE, [facility] Primary Care Unavailable ANASTASIA SANCHEZ Referring Unavailable PEE, LEBANON VELAZQUEZ Primary Care Unavailable PEE, [facility] Primary Care Unavailable DEVAUGHN ANDERSON Attending ANASTASIA Flowers Attending Unavailable PEE, [facility] Primary Care Unavailable ANASTASIA SANCHEZ Referring Unavailable PEE, [facility] Primary Care Unavailable SPETTKELI ESCAMILLA Primary Care Unavailable GREENHOUSE, FRANCHESCA J Attending Unavailable GREENHOUSE, DEEIE J Referring Unavailable SPETTEL, KELI Cervantes Primary Care Unavailable Allergies Allergy Classification Reported Allergen(s) Allergy Type Date of Onset Reaction(s) Facility (20 sources) Azithromycin; Translations: [azithromycin] Drug Allergy 03-06-20 Unknown [facility] [employer] Other (4 sources) cefTRIAXone; Translations: [ceftriaxone] Drug Allergy Mean (qualifier value) [facility] (20 sources) Ciprofloxacin; Translations: [ciprofloxacin] Drug Allergy 03-06-20 Unknown [facility] Other (20 sources) Dicyclomine; Translations: [dicyclomine] Drug Allergy 03-06-20 Unknown [facility] (20 sources) Ketorolac; Translations: [ketorolac] Drug Allergy 03-06-20 Unknown [facility] Other (20 sources) Metoclopramide; Translations: [metoclopramide] Drug Allergy 03-06-20 21 Unknown [facility] Other (20 sources) Morphine; Translations: [morphine] Drug Allergy 06-03-19 24 Hives, Hives-IV [facility] [employer] Other Comment on above: causes hives (20 sources) NITROFURANTOIN, MACROCRYSTALS / Nitrofurantoin, Monohydrate; Translations: [nitrofurantoin] Drug Allergy Itching, Unknown [facility] [employer] Other (20 sources) Penicillin; Translations: [penicillin] Drug Allergy Unknown (qualifier value) [facility] [employer] Other (4 sources) zolpidem; Translations: [zolpidem] Drug Allergy Agitation [facility] (20 sources) diphenhydrAMINE Drug Allergy IV [employer] [facility] [employer] Other (20 sources) LORazepam; Translations: [LORAZEPAM] Drug Allergy 03-06-20 21 Unknown [facility] (20 sources) Penicillin V Drug Allergy Unknown [facility] [employer] Other (10 sources) diphenhydrAMINE Drug Allergy IV [employer] [facility] [employer] Other (20 sources) DULoxetine Drug Allergy 06-03-19 24 worsen depression [facility] (20 sources) Nitrofurantoin; Translations: [nitrofurantoin] Drug Allergy 03-06-20 21 [facility] (20 sources) Penicillins; Translations: [Penicillins] Allergy to substance 09-17-19 13 [facility] (1 source) Azithromycin Drug Allergy 09-17-19 13 [facility] (1 source) Ciprofloxacin Drug Allergy 09-17-19 13 [facility] (1 source) Dicyclomine Drug Allergy 07-20-19 15 [facility] (1 source) Iothalamate Drug Allergy 09-17-19 13 [facility] (1 source) Ketorolac Drug Allergy 03-11-20 13 [facility] (1 source) LORazepam Drug Allergy 09-10-19 16 [facility] (1 source) Nitrofurantoin Drug Allergy 09-17-19 13 [facility] (1 source) LORazepam; Translations: [Ativan] Drug Allergy [facility] (16 sources) methylPREDNISolone ; Translations: [methylprednisolon e] Drug Allergy 12-26-19 Other: See Comments [facility] (17 sources) predniSONE; Translations: [PREDNISONE] Drug Allergy 12-26-19 Intolerance [facility] (1 source) Metoclopramide; Translations: [METOCLOPRAMIDE HCL] Drug Allergy 12-17-19 [facility] (1 source) NITROFURANTOIN MONOHYD/M-CRYST; Translations: [NITROFURANTOIN MONOHYD/M-CRYST] Propensity to adverse reactions to drug (disorder) 12-17-19 [facility] (1 source) Azithromycin Drug Allergy 10-08-19 [facility] (1 source) Ciprofloxacin Drug Allergy 10-08-19 [facility] (1 source) Dicyclomine Drug Allergy 10-08-19 [facility] (1 source) DULoxetine Drug Allergy 10-08-19 [facility] (1 source) Ketorolac Drug Allergy 10-08-19 [facility] (1 source) LORazepam Drug Allergy 10-08-19 [facility] (1 source) Metoclopramide Drug Allergy 10-08-19 [facility] (1 source) Morphine Drug Allergy 06-03-19 [facility] Medications Current Medications Medication Drug Class(es) Dates Sig (Normalized) Sig (Original) acetaminophen 325 mg oral tablet (8 sources) Start: 01-08-2024 take 2 tablets by mouth every six hours as needed acetaminophen (TYLENOL) 325 mg tablet Take 2 tablets by mouth every 6 hours as needed (for pain.). 20 tablet 01/08/2024 Active Acetaminophen / HYDROcodone (14 sources) Opioid Agonist Start: 05-16-2021 Lowry 5/325 Tab Oral, q6hr, Refill(s) 0 Start Date: 05/16/21 Status: Ordered Start: 05-08-2021 take 1 tablet by karl th every six hours HYDROcodone-Acetaminophen 5-325 MG 1 tab let as needed Orally every 6 hrs for 5 days Apr, Not-Taking Start: 05-08-2021 take 1 tablet by karl th every six hours doxycycline hyclate 100 mg oral capsule (4 sources) Tetracycline-class Drug Start: 02-23-2024 take 100 mg by mouth twice daily Doxycycline Hyclate Active 100 MG PO Twice daily 07 02February 23, 2024 12:00am Start: 06-21-2021 take 1 tablet by karl th once daily doxycycline hyclate 100 mg Tab 100 mg = 1 tab(s), Oral, BID, Take 1 tablet the day prior to scheduled procedure, take 2nd tablet the day of procedure, # 2 tab(s), Refills(s) 0, Pharmacy: [facility]/pharmacy #[id number], 165, cm, 05/18/21 11:56:00 EST, Height/Length Dosing, 100, kg, 05/16/21 9:5... Start Date: 06/21/21 Status: Ordered Extra Strength Acetaminophen (15 sources) Extra Strength [...] 90 tab(s), Refills(s) 3, Bladder problems, Pharmacy: [facility]/pharmacy #[id number], 165, cm, 05/18/21 11:56:00 EST, Height/Length Dosing, 100, kg, 05/16/21 9:54:00 EST, Weight Dosing Start Date: 05/21/21 Status: Ordered montelukast 10 mg oral tablet (20 sources) Leukotriene Receptor Antagonist Start: 07-07-19 take 10 mg by mouth once daily Montelukast Active 10 MG PO Daily July 06, 2023 11:00pm Start: 06-24-2022 take 1 tablet by karl th every twenty-four hours Montelukast Sodium 10 MG 1 tablet Orally Once a day for 30 days Jun, Active ondansetron 4 mg oral tablet (20 sources) Serotonin-3 Receptor Antagonist Start: 01-09-2024 take 1 tablet by mouth every eight hours as needed ondansetron (ZOFRAN) 4 mg tablet Take 1 tablet by mouth every 8 hours as needed for nausea/vomiting. 12 tablet 01/09/2024 Active Start: 06-03-2023 End: 08-27-2023 take 4 mg by mouth four times daily Ondansetron Discontinued 4 MG PO Four times daily June 03, 2023 12:00am August 27, 2023 3:26pm Start: 05-02-2022 End: 08-27-2023 take 4 mg by mouth every six hours Ondansetron Discontinued 4 MG PO Q6H May 02, 2022 12:00am August 27, 2023 3:26pm Start: 01-29-2021 End: 06-03-2023 Ondansetron Hcl (Zofran) 4 m g tablet Discontinued 4 MG PO every 6 to 8 hours January 28, 2021 11:00pm June 03, 2023 1:33pm Start: 08-21-2017 End: 08-24-2017 take 1 tablet by mouth every eight hours Ondansetron (Zofran Odt) 8 mg tablet,disintegrating Discontinued 8 MG PO Q8H 08 21August 20, 2017 11:00pm August 23, 2017 11:01pm Start: 03-14-2017 End: 06-04-2017 take 1 tablet by mouth every eight hours Ondansetron (Zofran Odt) 4 mg tablet,disintegrating Discontinued 4 MG PO Q8H March 14, 2017 12:00am June 04, 2017 2:00am oxyCODONE hydrochloride 5 mg oral tablet (2 sources) Opioid Agonist Start: 01-09-2024 End: 01-14-2024 take 1 tablet by mouth every eight hours as needed for pain oxyCODONE IR (ROXICODONE) 5 mg immediate release tablet Indications: Acute postoperative pain Take 1 tablet by mouth every 8 hours as needed for pain for up to 5 days. 10 tablet 01/09/2024 01/14/2024 Active phentermine hydrochloride 37.5 mg oral tablet (20 sources) Sympathomimetic Amine Anorectic Start: 09-17-2022 End: 02-23-2024 Phentermine HCl 37.5 mg tablet once daily. 10/15/2022 Active Start: 12-25-2021 take 1 tablet by [...] 6 hrs for 5 days Nov, Active tiZANidine 4 mg oral tablet (20 sources) Central alpha-2 Adrenergic Agonist Start: 12-19-2023 End: 02-23-2024 take 4 mg by mouth every eight hours Tizanidine Active 4 MG PO Every 8 hours 90 February 23, 2024 2:48pm Start: 06-30-2023 End: 12-19-2023 take 1 tablet by mouth every eight hours as needed Tizanidine Discontinued 0 .ROUTE .COMPLEX August 27, 2023 3:48pm December 19, 2023 8:43am TAKE 1 TABLET BY MOUTH EVERY 8 HOURS NEEDED FOR BACK SPAMS Start: 06-30-2023 End: 06-30-2023 take 4 mg by mouth three times daily Tizanidine Discontinued 4 MG PO Three times daily June 29, 2023 11:00pm June 30, 2023 12:00pm Start: 06-03-2023 End: 06-03-2023 take 4 mg by mouth every eight hours Tizanidine Discontinued 4 MG PO Every 8 hours June 03, 2023 11:53am June 03, 2023 1:33pm Start: 05-16-2021 Zanaflex Oral, Refills(s) 0 Start Date: 05/16/21 Status: Ordered Start: 04-25-2021 End: 06-03-2023 take 4 mg by mouth once daily at bedtime Tizanidine Discontinued 4 MG PO Daily at bedtime April 25, 2021 12:00am June 03, 2023 11:56am tizanidine HCl ( ZANAFLEX ORAL) Zanaflex Active take 1 tablet by karl th every eight hours Zanaflex 4 MG 1 tablet as needed Orally Three times a day for 30 days Active traMADol hydrochloride 50 mg oral tablet (20 sources) Opioid Agonist Start: 11-23-2022 take 1 tablet by mouth every six hours as needed for pain traMADOL 50 mg Tab 50 mg = 1 tab(s), Oral, q6hr, PRN for pain, # 12 tab(s), Refills(s) 0, Pharmacy: [facility]/pharmacy #[id number], 165, cm, 11/22/22 19:18:00 EDT, Height/Length Dosing, 103, kg, 11/22/22 19:18:00 EDT, Weight Dosing Start Date: 11/23/22 Status: Ordered Start: 05-02-2022 End: 06-03-2023 take 50 mg by mouth every four hours Tramadol Discontinued 50 MG PO Q4H 20 May 02, 2022 12:00am June 03, 2023 1:33pm Start: 01-30-2022 take 1-2 tablets by mouth [...] PO Twice daily 07 02August 22, 2023 11:00am take 1 tablet by karl th once [...] mg / caffeine 40 mg oral capsule (8 sources) Barbiturate, Central Nervous System Stimulant, Methylxanthine Start: 06-03-2023 End: 08-27-2023 take 1 capsule by mouth every six hours Butalbital-Acetam inophen-Caff (Fioricet) 50-300-40 mg capsule Discontinued 1 CAP PO Q6H 12 June 03, 2023 12:00am August 27, 2023 3:26pm acetaminophen 325 mg / oxyCODONE hydrochloride 5 [...] tablet (20 sources) Benzodiazepine Start: 06-06-2023 End: 02-20-2024 take 2 mg by mouth twice daily Alprazolam Discontinued 2 MG PO Twice daily 60 July 07, 2023 1:20pm August 13, 2023 2:15pm Start: 05-07-2023 take 1 tablet by karl [...] PO Twice daily March 14, 2017 12:00am June 06, 2023 10:26am Comment on above: Take 1 mg by mouth t wice daily as needed. ARIPiprazole 2 mg oral tablet (13 sources) Atypical Antipsychotic Start: End: Aripiprazole (Abilify) 2 mg Tablet Discontinued TABLET March 14, 2017 12:00am June 04, 2017 1:59am cephalexin 500 mg oral capsule (13 sources) Cephalosporin Antibacterial Start: End: take 1 capsule by mouth four times daily Cephalexin (Keflex) 500 mg capsule Discontinued 500 MG PO Four times daily 40 September 07, 2017 11:00pm November 21, 2017 6:33pm cyclobenzaprine hydrochloride 10 mg oral tablet (13 sources) Muscle Relaxant Start: End: take 10 mg by mouth three times daily Cyclobenzaprine Discontinued 10 MG PO Three times daily March 14, 2017 12:00am June 04, 2017 2:00am ergocalciferol 1.25 mg oral capsule (20 sources) Provitamin D2 Compound Start: take 1 capsule by mouth every week Vitamin D (Ergocalciferol) 1.25 MG (83078 UT) 1 capsule Orally weekly for 30 day(s) Jun, Not-Taking gabapentin 100 mg oral capsule (6 sources) Anti-epileptic Agent Start: End: take 1 capsule by mouth once daily at bedtime gabapentin (NEURONTIN) 100 mg capsule Take 1 capsule by mouth daily at bedtime for 5 days. 5 capsule 01/08/2024 02/17/2024 Discontinued (Discontinued by Patient) ibuprofen 600 mg oral tablet (19 sources) Nonsteroidal Anti-inflammatory Drug Start: End: take 1 tablet by mouth every eight hours as needed ibuprofen (MOTRIN) 600 mg tablet Take 1 tablet by mouth every 8 hours as needed for pain. 15 tablet 01/08/2024 02/17/2024 Discontinued (Discontinued by Patient) Start: 03-14-2017 End: 06-04-2017 take 800 mg by mouth three times daily Ibuprofen Discontinued 800 MG PO Three times daily March 14, 2017 12:00am June 04, 2017 2:00am iv contrast (will be provided with radiology test) (1 source) Start: 03-12-2024 End: 03-13-2024 iv contrast (will be provided with radiology test) MRI Breast SAADIA Inject, intravenously, once for 1 dose. No IV access, insert saline lock prior to the beginning of sedation, infusion, injection of imaging exam. Discontinue saline lock post exam. If Pt has a central line or IVAD, may access for administration according to line specific nursing protocol. Once exam is complete flush line and de-access according to line specific nursing protocol in the MR contrast administration guidelines link 1 Each 03/12/2024 03/13/2024 lamoTRIgine 25 mg oral tablet (13 sources) Mood Stabilizer, Anti-epileptic Agent Start: 06-12-2017 End: 11-21-2017 take 100 mg by mouth twice daily Lamotrigine Discontinued 100 MG PO Twice daily June 12, 2017 12:00am November 21, 2017 6:33pm levothyroxine sodium 0.075 mg oral tablet (13 sources) l-Thyroxine Start: 12-22-2018 End: 04-25-2021 take 75 ug by mouth once daily Levothyroxine Discontinued 75 MCG PO Daily December 21, 2018 11:00pm April 25, 2021 1:41pm 10 ml lidocaine hydrochloride 10 mg/ml injection (2 sources) Antiarrhythmic, Amide Local Anesthetic Start: 01-07-2024 End: 01-07-2024 SUBCUTANEOUS, X (OR/PROCEDURE) PRN, Starting on Fri01/07/24 at 1006, Until Fri01/07/24 at 1006, Intraprocedure Start: 09-08-2023 End: 09-08-2023 lidocaine (PF) 10 mg/mL (1 % ) injection (XYLOCAINE) 3 ml liraglutide 6 mg/ml pen injector (7 sources) GLP-1 Receptor Agonist Start: 09-27-2021 inject 0.6 mg by subcutaneous injection once daily Saxenda 18 MG/3ML 0.6 mg Subcutaneous once daily for 14 days Sep, Not-Taking metFORMIN hydrochloride 500 mg oral tablet (20 sources) Biguanide Start: 06-24-2018 End: 12-22-2018 Metformin [...] 2017 11:54am naproxen 500 mg oral tablet (13 sources) Nonsteroidal Anti-inflammatory Drug Start: 12-04-2019 End: 04-25-2021 take 500 mg by mouth every twelve hours Naproxen Discontinued 500 MG PO Q12H December 03, 2019 11:00pm April 25, 2021 1:41pm phenazopyridine hydrochloride 200 mg oral tablet (13 sources) Start: 09-08-2017 End: 11-21-2017 take 200 mg by mouth three times daily at mealtime Phenazopyridine Discontinued 200 MG PO Three times daily 10 September 07, 2017 11:00pm November 21, 2017 6:33pm administer with a full glass of water after each meal sulfamethoxazole 800 mg / trimethoprim 160 mg oral tablet (16 sources) Dihydrofolate Reductase Inhibitor Antibacterial, Sulfonamide Antimicrobial Start: 12-26-2023 End: 02-23-2024 take 1 tablet by mouth every twelve hours Sulfamethoxazole-T rimethoprim (Bactrim Ds) 800-160 mg tablet Discontinued 1 TAB PO Every 12 hours 01 11December 25, 2023 11:00pm February 23, 2024 2:47pm Start: 01-29-2021 End: 04-25-2021 take 1 tablet by mouth twice daily Sulfamethoxazole-Trimethoprim (Bactrim D s) 800-160 mg tablet Discontinued 1 TAB PO Twice daily January 28, 2021 11:00pm April 25, 2021 1:41pm tamsulosin hydrochloride 0.4 mg oral capsule (13 sources) alpha-Adrenergic Jimmie Start: 09-08-2017 End: 11-21-2017 Tamsulosin (Flomax) 0.4 mg capsule,extended release 24hr Discontinued 0.4 MG PO Daily September 07, 2017 11:00pm November 21, 2017 6:33pm administer 30 minutes after same meal each day; swallow whole with liquid; do not crush/chew/dissolve/open temazepam 7.5 mg oral capsule (20 sources) [...] 2018 3:27pm topiramate 25 mg oral tablet (13 sources) Start: 01-27-2019 End: 04-25-2021 take 1 [...] 05-30-2021 07-02-2013 Chronic Calculus of urinary tract (20 sources) History of calculus of kidney; Translations: [Personal history of urinary calculi] Onset: 08-15-2021 Episodic Cardiac dysrhythmias (12 sources) Postural orthostatic tachycardia syndrome ; Translations: [POTS (postural orthostatic tachycardia syndrome)] Onset: 01-06-2024 01-06-2024 Chronic Diabetes mellitus without complication (20 sources) Impaired fasting glycemia; Translations: [Impaired fasting glucose] Episodic Endometriosis (1 source) Endometriosis, unspecified; Translations: [ENDOMETRIOSIS UNSPECIFIED] Onset: 04-29-2022 Chronic Epilepsy; convulsions (15 sources) Seizure; Translations: [Epilepsy, unspecified, not intractable, without status epilepticus] Onset: 10-31-2021 06-21-2017 Chronic Genitourinary symptoms and ill-defined conditions (6 sources) Mixed incontinence; Translations: [Incontinence] Onset: 08-15-2021 Chronic Headache; including migraine (20 sources) Migraine without aura, not refractory ; Translations: [Migraine without aura, not intractable, without status migrainosus] Onset: 08-13-2022 Chronic Headache; including migraine (3 sources) Headache; including [...] [DEPRESSION UNSPECIFIED] Onset: 08-15-2022 Nausea and vomiting (15 sources) Nausea; Translations: [Nausea] Onset: 04-29-2022 01-27-2019 Episodic Nonmalignant breast conditions (8 sources) Fibrocystic changes of bilateral breasts; Translations: [Diffuse cystic mastopathy of right breast] Onset: 09-08-2023 08-07-2023 Chronic Nonmalignant breast conditions (20 sources) Breast problem; Translations: [Disorder of breast, unspecified] Onset: 07-07-2023 08-06-2023 Episodic Nutritional deficiencies (20 sources) Vitamin D deficiency; Translations: [Vitamin D deficiency, unspecified] Onset: 09-27-2021 Resolved: 09-27-2021 Chronic Other aftercare (1 source) Other 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 operator (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 therapy; Translations: [OTH DETENTION CURRENT DRUG THERAPY] Onset: 08-15-2022 Episodic Other and unspecified benign neoplasm (20 sources) Fibroadenoma of right breast; Translations: [Benign neoplasm of right breast] Onset: 12-26-2023 09-12-2023 Episodic Other and unspecified benign neoplasm (1 source) Benign neoplasm of right breast; Translations: [Breast fibroadenoma, right] Onset: 12-26-2023 Episodic Other circulatory disease (6 sources) Postural [...] [Constipation, unspecified] Episodic Other nervous system disorders (3 sources) Other chronic pain; Translations: [OTHER CHRONIC PAIN] Onset: 04-29-2022 Chronic Other nervous system disorders (1 source) Chronic pain; Translations: [Other chronic pain] Onset: 11-22-2022 Chronic Other nutritional; endocrine; and metabolic disorders (20 sources) Body mass index 30+ - obesity; Translations: [Body mass index (BMI) 38.0-38.9, adult] Onset: 01-06-2024 01-06-2024 Chronic Other nutritional; endocrine; and metabolic disorders (20 sources) Obesity; Translations: [Obesity, unspecified] Chronic Other nutritional; endocrine; and metabolic disorders (20 sources) Obese class II; Translations: [Body mass index (BMI) 39.0-39.9, adult] 02-17-2024 Chronic Other nutritional; endocrine; and metabolic disorders (6 sources) Body mass index (BMI) 37.0-37.9, adult Onset: 10-12-2021 Resolved: 12-12-2021 Chronic Other nutritional; endocrine; and metabolic disorders (9 sources) Body mass index (BMI) 38.0-38.9, adult; Translations: [Body Mass Index 38.0-38.9, adult] Onset: 09-27-2021 Resolved: 10-01-2021 Chronic Other nutritional; endocrine; and metabolic disorders (2 sources) Body mass index (BMI) 36.0-36.9, adult Onset: 11-21-2021 Resolved: 12-25-2021 Chronic Other nutritional; endocrine; and metabolic disorders (9 sources) Body mass index (BMI) 39.0-39.9, adult; Translations: [Body Mass Index 39.0-39.9, adult] Chronic Other skin disorders (12 sources) Eruption; Translations: [Rash and other nonspecific skin eruption] Onset: 01-06-2024 01-06-2024 Episodic Other upper respiratory disease (18 sources) Seasonal allergy; Translations: [Other seasonal allergic rhinitis] Chronic Other upper respiratory disease (1 source) Other seasonal allergic rhinitis Chronic Other upper respiratory infections (1 source) Chronic sinusitis, unspecified; Translations: [Unspecified sinusitis (chronic)] 02-23-2024 Chronic Residual codes; unclassified (20 sources) Sedative, hypnotic AND/OR anxiolytic-induced sleep disorder; Translations: [Other sleep disorders] Chronic Residual codes; unclassified (20 sources) Daytime somnolence; Translations: [Other hypersomnia] Chronic Residual codes; unclassified (20 sources) Hypnagogic hallucinations; Translations: [Other hallucinations] Episodic Residual codes; unclassified (20 sources) Insomnia; Translations: [Insomnia, unspecified] Episodic Residual codes; unclassified (5 sources) Family history of breast cancer; Translations: [Family history of malignant neoplasm of breast] 08-07-2023 Episodic Residual codes; unclassified (12 sources) Difficult venous access; Translations: [Other specified health status] Onset: 01-06-2024 01-06-2024 Episodic Residual codes; unclassified (1 source) Postoperative state; Translations: [Other specified postprocedural states] 01-19-2024 Episodic Residual codes; unclassified (1 source) Other specified postprocedural states; Translations: [Post-operative state] Onset: 01-19-2024 Episodic Spondylosis; intervertebral disc disorders; other back problems (2 sources) Dorsalgia, unspecified; Translations: [Dorsalgia, unspecified] Onset: 12-17-2023 Episodic Sprains and strains (20 sources) Strain of neck muscle; Translations: [Strain of muscle, fascia and tendon at neck level, initial encounter] Onset: 04-02-2022 06-22-2017 Episodic Substance-related disorders (3 sources) Smoker 07-24-2016 Chronic Comment on above: Added secondary to d ocumentation in Social History. Superficial injury; contusion (14 sources) Abrasion of foot; Translations: [Abrasion, unspecified foot, initial encounter] Onset: 02-11-2022 12-04-2019 Episodic Syncope (3 sources) Syncope 06-06-2016 Episodic Unclassified (1 source) ADENOMYOSIS OF THE UTERUS; Translations: [ADENOMYOSIS OF THE UTERUS] Onset: 04-29-2022 Unclassified (1 source) Low back pain, unspecified; Translations: [Low back pain, unspecified] Onset: 12-17-2023 Unclassified (1 source) Unspecified convulsions; Translations: [Unspecified convulsions] Onset: 06-03-2023 Unclassified (1 source) Dense breasts; Translations: [Dense breasts] Onset: 09-08-2023 Urinary tract infections (20 sources) Acute cystitis; Translations: [Acute cystitis without [...] PROLNG STAT/AWK PST INIT] Onset: 04-02-2022 Episodic Epilepsy; convulsions (20 sources) Seizure; Translations: [Neurological finding] Onset: 03-06-2021 06-06-2016 Episodic Genitourinary symptoms and ill-defined conditions (1 source) Dysuria Onset: 05-08-2021 Resolved: 05-08-2021 Episodic Headache; including migraine (20 sources) Headache; Translations: [Headache] Onset: 03-07-2021 06-22-2017 Episodic Other non-traumatic joint disorders (3 sources) Pain in right ankle and joints of right foot; Translations: [PAIN IN RIGHT ANKLE] Onset: 03-28-2022 Episodic Other non-traumatic joint disorders (3 sources) Pain in left shoulder; Translations: [PAIN IN LEFT SHOULDER] Onset: 02-10-2022 Episodic Residual codes; unclassified (1 source) Family history of malignant neoplasm of breast; Translations: [Family history of breast cancer] Onset: 09-08-2023 Episodic Unclassified (1 source) kidney infections( Confirmed ) 07-21-2012 Unclassified (1 source) Conjunctivitis 372.30 Onset: 10-23-2021 Resolved: 10-23-2021 Unclassified (2 sources) kidney infections 07-21-2012 Unclassified (1 source) Low back pain, unspecified; Translations: [Low back pain, unspecified] Onset: 12-17-2023 Results Test Name Value Interpretation Reference Range Facility [facility] 03-12-2024 CNOV Office Visit (BRCRMN ) ----- SULLY ENRIQUEZ ([id number]) 1990 F Date Time Provider Department 03/12/24 10:00 AM [facility] During your visit today, we recorded the following information about you: Weight Height 105.7 kg 1.651 m Anastasia Mon PA-C 03/15/2024 4:18 PM Signed [facility] [place] Department of Breast Surgical Oncology [facility] FOLLOW UP HPI: Sully Enriquez is a 34 year old female with a history of right breast fibroadenoma presents today status post right breast excisional biopsy on 01/08/2024. Final path showed fibroadenoma and benign breast tissue. Now presenting with right breast fullness and right nipple discharge. 01/30/2024 Ms. Enriquez was seen for post op follow up on 01/19/2024. At that time, she was doing well from surgery and had no additional breast concerns. Patient reports about 4-5 days ago she experienced bloody discharge from the right nipple while manipulating her breast. She noted a second occurrence of bloody nipple discharge which was spontaneous the next day. She has not noticed any subsequent episodes of nipple discharge although she feels the right nipple was slightly inverting last night. She reports a distant history of clear nipple discharge several months ago. Ms. Enriquez also noticed two new non-tender lumps in the right breast about 1 week ago- one quarter-sized in the superior breast and the other pea-sized lump in the inferior breast which are not near her surgical site. Patient has limited contact with paternal side of family, however, in the past couple weeks she has learned that 3 paternal aunts have had breast cancer. She does not know ages of diagnoses, but was told one aunt was diagnosed in her 40s. Her father has 11 siblings total, although she is unsure of the # of sisters. 03/12/2024 Patient reports persistence of right spontaneous nipple discharge. She had one more episode of bloody nipple discharge (3 total) and has since been experiencing clear right nipple discharge about twice daily which she finds in her bra. She also notes 2-3 new non-tender lumps of concern on right breast since she was seen 01/29, two over the upper breast and one in the LIQ. She states that the right breast feels amos than left which extends to her right axilla. She did see endocrinology 02/17/24 and it was felt the nipple discharge was not hormonally mediated. PERSONAL BREAST HISTORY: Past breast history (prior to this encounter) is as follows: Breast biopsy: 07/07/23 right breast 8oclock 4-5cmfn, fibrocystic change, concordant Breast cysts: No Breast surgery: 01/08/24 right breast excisional biopsy- fibroadenoma Breast cancer: No CANCER SURVEILLANCE: Mammograms: 06/25/23 [...] No She is s/p hysterectomy for endometriosis. Ovaries remain intact. She does not use any control. History of Mantle Radiation prior to the age of 29: No Obesity: Yes, 38.11 kg/m Current Weight: 229 lb Mammographic density: The breasts are heterogeneously dense which limits the sensitivity of mammography Personal History of Benign Atypical Breast Biopsy: No Alcohol use: occasional PAST MEDICAL HISTORY: PAST MEDICAL HISTORY Diagnosis Date Insomnia Kidney stone SURGICAL HISTORY: PAST SURGICAL HISTORY Procedure Laterality Date BUNIONECTOMY, LAPIDUS-TYPE rt foot BX OF BREAST; INCISIONAL RT BREAST 2X PAST SURGICAL HISTORY OF Nephrostomy tube removed PAST SURGICAL HISTORY OF hysterectomy still have ovaries PAST SURGICAL HISTORY OF cyst on ovaries removed several time PAST SURGICAL HISTORY OF kidney stones PAST SURGICAL HISTORY OF exploratory surgery for endometriosis PAST SURGICAL HISTORY OF LEEP procedure PAST SURGICAL HISTORY OF colonoscopy x 2 SALPINGECTOMY Bilateral 2010 SOCIAL HISTORY: Social History Socioeconomic History Marital status: Tobacco Use Smoking status: Never Smokeless tobacco: Never Substance and Sexual Activity Alcohol use: Yes Comment: about 1-2 times per month will have ~2 drinks Drug use: Never Social Determinants of Health Financial Resource Strain: Low Risk (12/17/2023) Received from [facility] Overall Financial Resource Strain (CARDIA) Difficulty of Paying Living Expenses: Not hard at all Food Insecurity: No Food Insecurity (12/17/2023) Received from [facility] Hunger Vital Sign (more content not included)... Normal [facility] DBT Breast - right diagnosti c for implanton 03-12-2024 IMPRESSION: Finding 1: There are no suspicious mammographic or sonographic findings in the right breast to correlate with the multiple palpable findings. Finding 2: There are no suspicious mammographic or sonographic findings in the right breast to correlate with the nipple discharge. Clinical management is recommended. Finding 3: Post-operative changes in the right breast are benign. Return to annual screening mammogram is recommended. Annual mammogram will be due at age 39. There is no imaging correlate to the area of clinical concern. Clinical correlation and follow-up is recommended. BI-RADS Category 2: Benign RISK: Based on the Tyrer-Cuzick (TC) risk assessment model, this patient has a 13.7% lifetime risk of developing breast cancer, meaning they are at average risk for developing breast cancer. However, this is only an estimate based on available history provided on the patient's questionnaire. We encourage all patients to talk with their providers about these results, further recommendations for managing breast health, and appropriate supplemental screening options if the patient has dense breast tissue. Interpreting Radiologist: Edgard Cole M.D. Electronically signed on: 03/12/2024 Director Of Digital Technology: BISHOP Transcribe Date/Time: Mar 12 2024 10:58A Dictated by : EDGARD COLE MD This examination was interpreted and the report reviewed and electronically signed by: EDGARD COLE MD on Mar 12 2024 1:18PM [facility] DIVISION OF RADIOLOGY * * *Final Report* * * DATE OF EXAM: Mar 12 2024 11:12AM W 0629 - [facility] Mykel ALFARO RT / PROCEDURE REASON: multiple diagnoses * * * * Physician Interpretation * * * * RESULT: [facility] [address] [facility] [address] [place] [id number] #[id number] - [facility] MARCO Hogue DOMINIC RT #[id number] - [facility] [place] BREAST LTD RT HISTORY: Patient is 34 years old and is seen for diagnostic evaluation of non-bloody discharge in the right breast. Patient states no personal history of breast cancer. Patient states no personal history of other cancers. The patient had a benign fibroadenoma removed in December 2023. The patient now reports right clear nipple discharge. The patient previously had milky nipple discharge from both breasts. COMPARISON STUDIES: The present examination has been compared to prior imaging studies dated 06/25/2023 (mammogram), 09/08/2023 (mammogram), 01/07/2024 (mammogram) and 01/30/2024 (ultrasound). MAMMOGRAM TECHNIQUE: The study was acquired using full field digital technology and interpreted from soft copy. Digital Breast Tomosynthesis (DBT) images were obtained and used to assist in the interpretation of this examination. Computer-aided detection was utilized by the radiologist in the interpretation of this examination. MAMMOGRAM FINDINGS: The breast is heterogeneously dense, which may obscure small masses. Finding 1: There are no suspicious mammographic findings to correspond with the areas of palpable concern in the right breast at 6 o'clock and at 12 o'clock. Finding 2: There are no suspicious mammographic findings to correspond with the non-bloody nipple discharge in the right breast. Finding 3: There are post-operative changes in the right breast. ULTRASOUND TECHNIQUE: Targeted ultrasound of the indicated area was performed. Cam scale images were saved. ULTRASOUND FINDINGS: Finding 1: There is no sonographic correlates for the palpable findings at 6:00 4 cmfn; 12:00 1 cmfn; 12:00 3cmfn; and 12:00 4cmfn. Finding 2: There is no sonographic correlate for the nipple discharge. There is benign duct ectasia within the subareolar region. DIVISION [facility]OLOGY [facility] * * *Final Report* * * DATE OF EXAM: Mar 12 2024 11:12AM W 0629 - [facility] ISAACJavon FORRESTO RT / PROCEDURE REASON: multiple diagnoses * * * * Physician Interpretation * * * * RESULT: [place] [id number] [facility] [place] [address] #[id number] - [facility] MARCO ALFARO RT #[id number] - [facility] US BREAST LTD RT HISTORY: Patient is 34 years old and is seen for diagnostic evaluation of non-bloody discharge in the right breast. Patient states no personal history of breast cancer. Patient states no personal history of other cancers. The patient had a benign fibroadenoma removed in December 2023. The patient now reports right clear nipple discharge. The patient previously had milky nipple discharge from both breasts. COMPARISON STUDIES: The present examination has been compared to prior imaging studies dated 06/25/2023 (mammogram), 09/08/2023 (mammogram), 01/07/2024 (mammogram) and 01/30/2024 (ultrasound). MAMMOGRAM TECHNIQUE: The study was acquired using full field digital technology and interpreted from soft copy. Digital Breast Tomosynthesis (DBT) images were obtained and used to assist in the interpretation of this examination. Computer-aided detection was utilized by the radiologist in the interpretation of this examination. MAMMOGRAM FINDINGS: The breast is heterogeneously dense, which may obscure small masses. Finding 1: There are no suspicious mammographic findings to correspond with the areas of palpable concern in the right breast at 6 o'clock and at 12 o'clock. Finding 2: There are no suspicious mammographic findings to correspond with the non-bloody nipple discharge in the right breast. Finding 3: There are post-operative changes in the right breast. ULTRASOUND TECHNIQUE: Targeted ultrasound of the indicated area was performed. Cam scale images were saved. ULTRASOUND FINDINGS: Finding 1: There is no sonographic correlates for the palpable findings at 6:00 4 cmfn; 12:00 1 cmfn; 12:00 3cmfn; and 12:00 4cmfn. Finding 2: There is no sonographic correlate for the nipple discharge. There is benign duct ectasia within the subareolar region. IMPRESSION IMPRESSION: Finding 1: There are no suspicious mammographic or sonographic findings in the right breast to correlate with the multiple palpable findings. Finding 2: There are no suspicious mammographic or sonographic findings in the right breast to correlate with the nipple discharge. Clinical management is recommended. Finding 3: Post-operative changes in the right breast are benign. Return to annual screening mammogram is recommended. Annual mammogram will be due at age 39. There is no imaging correlate to the area of clinical concern. Clinical correlation and follow-up is recommended. BI-RADS Category 2: Benign RISK: Based on the Tyrer-Cuzick (TC) risk assessment model, this patient has a 13.7% lifetime risk of developing breast cancer, meaning they are at average risk for developing breast cancer. However, this is only an estimate based on available history provided on the patient's questionnaire. We encourage all patients to talk with their providers about these results, further recommendations for managing breast health, and appropriate supplemental screening options if the patient has dense breast tissue. Interpreting Radiologist: Edgard Cole M.D. Electronically signed on: 03/12/2024 Director Of Digital Technology: BISHOP Transcribe Date/Time: Mar 12 2024 10:58A Dictated by : EDGARD COLE MD This examination was interpreted and the report reviewed and electronically signed by: EDGARD COLE MD on Mar 12 2024 1:18PM [facility] SAJI DIAG W DOMINIC RTon 024 [facility] DIAG W DOMINIC RT * * *Final Report* * * DATE OF EXAM: Mar 12 2024 11:12AM [facility] 0629 - [facility] DIAG W DOMINIC RT / PROCEDURE REASON: multiple diagnoses * * * * Physician Interpretation * * * * RESULT: [place] [address] [id number] - [facility] DIAG W DOMINIC RT #[id number] - [facility] BREAST LTD RT HISTORY: Patient is 34 years old and is seen for diagnostic evaluation of non-bloody discharge in the right breast. Patient states no personal history of breast cancer. Patient states no personal history of other cancers. The patient had a benign fibroadenoma removed in December 2023. The patient now reports right clear nipple discharge. The patient previously had milky nipple discharge from both breasts. COMPARISON STUDIES: The present examination has been compared to prior imaging studies dated 06/25/2023 (mammogram), 09/08/2023 (mammogram), 01/07/2024 (mammogram) and 01/30/2024 (ultrasound). MAMMOGRAM TECHNIQUE: The study was acquired using full field digital technology and interpreted from soft copy. Digital Breast Tomosynthesis (DBT) images were obtained and used to assist in the interpretation of this examination. Computer-aided detection was utilized by the radiologist in the interpretation of this examination. MAMMOGRAM FINDINGS: The breast is heterogeneously dense, which may obscure small masses. Finding 1: There are no suspicious mammographic findings to correspond with the areas of palpable concern in the right breast at 6 o'clock and at 12 o'clock. Finding 2: There are no suspicious mammographic findings to correspond with the non-bloody nipple discharge in the right breast. Finding 3: There are post-operative changes in the right breast. ULTRASOUND TECHNIQUE: Targeted ultrasound of the indicated area was performed. Cam scale images were saved. ULTRASOUND FINDINGS: Finding 1: There is no sonographic correlates for the palpable findings at 6:00 4 cmfn; 12:00 1 cmfn; 12:00 3cmfn; and 12:00 4cmfn. Finding 2: There is no sonographic correlate for the nipple discharge. There is benign duct ectasia within the subareolar region. IMPRESSION: Finding 1: There are no suspicious mammographic or sonographic findings in the right breast to correlate with the multiple palpable findings. Finding 2: There are no suspicious mammographic or sonographic findings in the right breast to correlate with the nipple discharge. Clinical management is recommended. Finding 3: Post-operative changes in the right breast are benign. Return to annual screening mammogram is recommended. Annual mammogram will be due at age 39. There is no imaging correlate to the area of clinical concern. Clinical correlation and follow-up is recommended. BI-RADS Category 2: Benign RISK: Based on the Tyrer-Cuzick (TC) risk assessment model, this patient has a 13.7% lifetime risk of developing breast cancer, meaning they are at average risk for developing breast cancer. However, this is only an estimate based on available history provided on the patient's questionnaire. We encourage all patients to talk with their providers about these results, further recommendations for managing breast health, and appropriate supplemental screening options if the patient has dense breast tissue. Interpreting Radiologist: Edgard Cole M.D. Electronically signed on: 03/12/2024 Director Of Digital Technology: BISHOP Transcribe Date/Time: Mar 12 2024 10:58A Dictated by : EDGARD COLE MD This examination was interpreted and the report reviewed and electronically signed by: EDGARD COLE MD on Mar 12 2024 1:18PM EST [id number] Normal [facility] US BREAST LTD RTon 03-12 [facility] US BREAST LTD RT * * *Final Report* * * DATE OF EXAM: Mar 12 2024 11:41AM [facility] [id number] - [facility] US BREAST LTD RT / PROCEDURE REASON: multiple diagnoses * * * * Physician Interpretation * * * * RESULT: [address] [place] [address] #[id number] - [facility] DIAG W DOMINIC RT #[id number] - [facility] [employer] BREAST LTD RT HISTORY: Patient is 34 years old and is seen for diagnostic evaluation of non-bloody discharge in the right breast. Patient states no personal history of breast cancer. Patient states no personal history of other cancers. The patient had a benign fibroadenoma removed in December 2023. The patient now reports right clear nipple discharge. The patient previously had milky nipple discharge from both breasts. COMPARISON STUDIES: The present examination has been compared to prior imaging studies dated 06/25/2023 (mammogram), 09/08/2023 (mammogram), 01/07/2024 (mammogram) and 01/30/2024 (ultrasound). MAMMOGRAM TECHNIQUE: The study was acquired using full field digital technology and interpreted from soft copy. Digital Breast Tomosynthesis (DBT) images were obtained and used to assist in the interpretation of this examination. Computer-aided detection was utilized by the radiologist in the interpretation of this examination. MAMMOGRAM FINDINGS: The breast is heterogeneously dense, which may obscure small masses. Finding 1: There are no suspicious mammographic findings to correspond with the areas of palpable concern in the right breast at 6 o'clock and at 12 o'clock. Finding 2: There are no suspicious mammographic findings to correspond with the non-bloody nipple discharge in the right breast. Finding 3: There are post-operative changes in the right breast. ULTRASOUND TECHNIQUE: Targeted ultrasound of the indicated area was performed. Cam scale images were saved. ULTRASOUND FINDINGS: Finding 1: There is no sonographic correlates for the palpable findings at 6:00 4 cmfn; 12:00 1 cmfn; 12:00 3cmfn; and 12:00 4cmfn. Finding 2: There is no sonographic correlate for the nipple discharge. There is benign duct ectasia within the subareolar region. IMPRESSION: Finding 1: There are no suspicious mammographic or sonographic findings in the right breast to correlate with the multiple palpable findings. Finding 2: There are no suspicious mammographic or sonographic findings in the right breast to correlate with the nipple discharge. Clinical management is recommended. Finding 3: Post-operative changes in the right breast are benign. Return to annual screening mammogram is recommended. Annual mammogram will be due at age 39. There is no imaging correlate to the area of clinical concern. Clinical correlation and follow-up is recommended. BI-RADS Category 2: Benign RISK: Based on the Tyrer-Cuzick (TC) risk assessment model, this patient has a 13.7% lifetime risk of developing breast cancer, meaning they are at average risk for developing breast cancer. However, this is only an estimate based on available history provided on the patient's questionnaire. We encourage all patients to talk with their providers about these results, further recommendations for managing breast health, and appropriate supplemental screening options if the patient has dense breast tissue. Interpreting Radiologist: Edgard Cole M.D. Electronically signed on: 03/12/2024 Director Of Digital Technology: BISHOP Transcribe Date/Time: Mar 12 2024 11:27A Dictated by : EDGARD COLE MD This examination was interpreted and the report reviewed and electronically signed by: EDGARD COLE MD on Mar 12 2024 1:18PM EST [id number] Normal [facility] No Panel InformationOrdered By: [facility] Provider on 03-12-2024 [facility] No Panel Informationon 03-12 Radiology Study observation (narrative) [facility] US Breast - right limitedon 03-12-2024 IMPRESSION: Finding 1: There are no suspicious mammographic or sonographic findings in the right breast to correlate with the multiple palpable findings. Finding 2: There are no suspicious mammographic or sonographic findings in the right breast to correlate with the nipple discharge. Clinical management is recommended. Finding 3: Post-operative changes in the right breast are benign. Return to annual screening mammogram is recommended. Annual mammogram will be due at age 39. There is no imaging correlate to the area of clinical concern. Clinical correlation and follow-up is recommended. BI-RADS Category 2: Benign RISK: Based on the Tyrer-Cuzick (TC) risk assessment model, this patient has a 13.7% lifetime risk of developing breast cancer, meaning they are at average risk for developing breast cancer. However, this is only an estimate based on available history provided on the patient's questionnaire. We encourage all patients to talk with their providers about these results, further recommendations for managing breast health, and appropriate supplemental screening options if the patient has dense breast tissue. Interpreting Radiologist: Edgard Cole M.D. Electronically signed on: 03/12/2024 Director Of Digital Technology: BISHOP Transcribe Date/Time: Mar 12 2024 11:27A Dictated by : EDGARD COLE MD This examination was interpreted and the report reviewed and electronically signed by: EDGARD COLE MD on Mar 12 2024 1:18PM [facility] DIVISION OF RADIOLOGY * * *Final Report* * * DATE OF EXAM: Mar 12 2024 11:41AM [facility] 0594 - [facility] [employer] [facility]AST [employer] RT / PROCEDURE REASON: multiple diagnoses * * * * Physician Interpretation * * * * RESULT: [place] [address] #[id number] - [facility] RT #[id number] - [facility] [employer] BREAST LTD RT HISTORY: Patient is 34 years old and is seen for diagnostic evaluation of non-bloody discharge in the right breast. Patient states no personal history of breast cancer. Patient states no personal history of other cancers. The patient had a benign fibroadenoma removed in December 2023. The patient now reports right clear nipple discharge. The patient previously had milky nipple discharge from both breasts. COMPARISON STUDIES: The present examination has been compared to prior imaging studies dated 06/25/2023 (mammogram), 09/08/2023 (mammogram), 01/07/2024 (mammogram) and 01/30/2024 (ultrasound). MAMMOGRAM TECHNIQUE: The study was acquired using full field digital technology and interpreted from soft copy. Digital Breast Tomosynthesis (DBT) images were obtained and used to assist in the interpretation of this examination. Computer-aided detection was utilized by the radiologist in the interpretation of this examination. MAMMOGRAM FINDINGS: The breast is heterogeneously dense, which may obscure small masses. Finding 1: There are no suspicious mammographic findings to correspond with the areas of palpable concern in the right breast at 6 o'clock and at 12 o'clock. Finding 2: There are no suspicious mammographic findings to correspond with the non-bloody nipple discharge in the right breast. Finding 3: There are post-operative changes in the right breast. ULTRASOUND TECHNIQUE: Targeted ultrasound of the indicated area was performed. Cam scale images were saved. ULTRASOUND FINDINGS: Finding 1: There is no sonographic correlates for the palpable findings at 6:00 4 cmfn; 12:00 1 cmfn; 12:00 3cmfn; and 12:00 4cmfn. Finding 2: There is no sonographic correlate for the nipple discharge. There is benign duct ectasia within the subareolar region. DIVISION OF RADIOLOGY Provider, [facility] - 03/12/2024 * * *Final Report* * * DATE OF EXAM: Mar 12 2024 11:41AM [facility] 0594 - [facility] RT / PROCEDURE REASON: multiple diagnoses * * * * Physician Interpretation * * * * RESULT: [address] [place] [address] #[id number] - [facility]CO ALF[facility]O RT #[id number] - [facility] RT HISTORY: Patient is 34 years old and is seen for diagnostic evaluation of non-bloody discharge in the right breast. Patient states no personal history of breast cancer. Patient states no personal history of other cancers. The patient had a benign fibroadenoma removed in December 2023. The patient now reports right clear nipple discharge. The patient previously had milky nipple discharge from both breasts. COMPARISON STUDIES: The present examination has been compared to prior imaging studies dated 06/25/2023 (mammogram), 09/08/2023 (mammogram), 01/07/2024 (mammogram) and 01/30/2024 (ultrasound). MAMMOGRAM TECHNIQUE: The study was acquired using full field digital technology and interpreted from soft copy. Digital Breast Tomosynthesis (DBT) images were obtained and used to assist in the interpretation of this examination. Computer-aided detection was utilized by the radiologist in the interpretation of this examination. MAMMOGRAM FINDINGS: The breast is heterogeneously dense, which may obscure small masses. Finding 1: There are no suspicious mammographic findings to correspond with the areas of palpable concern in the right breast at 6 o'clock and at 12 o'clock. Finding 2: There are no suspicious mammographic findings to correspond with the non-bloody nipple discharge in the right breast. Finding 3: There are post-operative changes in the right breast. ULTRASOUND TECHNIQUE: Targeted ultrasound of the indicated area was performed. Cam scale images were saved. ULTRASOUND FINDINGS: Finding 1: There is no sonographic correlates for the palpable findings at 6:00 4 cmfn; 12:00 1 cmfn; 12:00 3cmfn; and 12:00 4cmfn. Finding 2: There is no sonographic correlate for the nipple discharge. There is benign duct ectasia within the subareolar region. IMPRESSION IMPRESSION: Finding 1: There are no suspicious mammographic or sonographic findings in the right breast to correlate with the multiple palpable findings. Finding 2: There are no suspicious mammographic or sonographic findings in the right breast to correlate with the nipple discharge. Clinical management is recommended. Finding 3: Post-operative changes in the right breast are benign. Return to annual screening mammogram is recommended. Annual mammogram will be due at age 39. There is no imaging correlate to the area of clinical concern. Clinical correlation and follow-up is recommended. BI-RADS Category 2: Benign RISK: Based on the Tyrer-Cuzick (TC) risk assessment model, this patient has a 13.7% lifetime risk of developing breast cancer, meaning they are at average risk for developing breast cancer. However, this is only an estimate based on available history provided on the patient's questionnaire. We encourage all patients to talk with their providers about these results, further recommendations for managing breast health, and appropriate supplemental screening options if the patient has dense breast tissue. Interpreting Radiologist: Edgard Cole M.D. Electronically signed on: 03/12/2024 Director Of Digital Technology: BISHOP Transcribe Date/Time: Mar 12 2024 11:27A Dictated by : EDGARD COLE MD This examination was interpreted and the report reviewed and electronically signed by: EDGARD COLE MD on Mar 12 2024 1:18PM [facility] CNOVon 02-17-2024 CNOV Office Visit (ENDOLN ) ----- SULLY ENRIQUEZ ([id number]) 1990 F Date Time Provider Department 02/17/24 1:00 PM DEVAUGHN ANDERSON ENDOLN During your visit today, we recorded the following information about you: Pulse Blood pressure Weight Height 83/minute 124/81 105.7 kg 1.651 m Devaughn Anderson MD 02/17/2024 2:29 PM Signed ENDOCRINOLOGY REASON FOR CONSULTATION: Nipple discharge The patient is referred by Franchesca Man PA-C. My recommendations will be sent to the referring physician/provider either by letter or shared electronic medical record. HISTORY HPI: Sully Enriquez is a 33 year old female who comes in here for evaluation of nipple discharge. Pt report right discharge since around 10/2023. Pt thinks this is coming from one pore. She had an excision of a mass in R breast on 01/08/24. The diagnosis was: Fibroadenoma. - Adjacent breast tissue with cystic change, apocrine metaplasia, usual ductal hyperplasia, and columnar cell change. - Core biopsy site changes and clip x 2. Pt has noticed some bloody right nipple discharge after the surgery. Pt had and had unsuccessful breast feeding attempt in 2010. #Weight gain: Since age 26. Pt states she put about 100 lbs in one year, mw/o changes in activity, nutrition nor a . Fluctuating within +/- 10 lbs. No family h/o overweight or obesity. No changes in muscle strength. Pt was running about 2 mi daily until age 26. Pt walks about 0.5-1 mi per day. Does some resistance exercise times per week. Has tried a diet with 1 cup of oat meal 6 oz of meat for lunch and dinner. No pop or sugary things. Drinks water and lemonade. Pt eats asparagus or sweat potatoes. Review of Systems Constitutional: Positive for fatigue and night sweats. Negative for recent unintentional weight change. HENT: Negative for trouble swallowing, postnasal drip and thyroid pain (lower neck). Eyes: Positive for visual disturbance. Respiratory: Negative for difficulty breathing. Cardiovascular: Negative for chest pain, leg swelling and claudication. Gastrointestinal: Negative for heartburn, nausea, vomiting, abdominal pain, diarrhea and constipation. Genitourinary: Positive for amenorrhea. Negative for urgency, frequent urination, slower stream, menstruating and irregular menses. Musculoskeletal: Positive for myalgias, muscle weakness and bone pain. Skin: Negative for skin color change. Neurological: Positive for dizziness and headaches. Negative for numbness. Endo/Heme/Allergies: Positive for polydipsia, cold intolerance when others are comfortable, heat intolerance when others are comfortable, hot flashes and changes in body hair. Negative for flushing. PAST MEDICAL HISTORY Diagnosis Date Insomnia Kidney stone PAST SURGICAL HISTORY Procedure Laterality Date BUNIONECTOMY, LAPIDUS-TYPE rt foot BX OF BREAST; INCISIONAL RT BREAST 2X PAST SURGICAL HISTORY OF Nephrostomy tube removed PAST SURGICAL HISTORY OF hysterectomy still have ovaries PAST SURGICAL HISTORY OF cyst on ovaries removed several time PAST SURGICAL HISTORY OF kidney stones PAST SURGICAL HISTORY OF exploratory surgery for endometriosis PAST SURGICAL HISTORY OF LEEP procedure PAST SURGICAL HISTORY OF colonoscopy x 2 SALPINGECTOMY Bilateral 2010 Social History Tobacco Use Smoking status: Never Smokeless tobacco: Never Substance Use Topics Alcohol use: Yes Comment: about 1-2 times per month will have ~2 drinks Drug use: Never FAMILY HISTORY Problem Relation Age of Onset Lung Cancer Father Heart Attack Father Osteoporosis Maternal Grandmother Cancer Maternal Grandmother IN NECK Breast Cancer Paternal Grandmother Breast Cancer Paternal Aunt unsure of age at diagnosis Breast Cancer Paternal Aunt diagnosed in her 40s Breast Cancer Paternal Aunt unsure of age at diagnosis Current Outpatient Medications Medication Sig ondansetron (ZOFRAN) 4 mg tablet Take 1 tablet by mouth every 8 hours as needed for nausea/vomiting. acetaminophen (TYLENOL) 325 mg tablet Take 2 tablets by mouth every 6 hours as needed (for pain.). ibuprofen (MOTRIN) 600 mg tablet Take 1 tablet by mouth every 8 hours as needed for pain. gabapentin (NEURONTIN) 100 mg capsule Take 1 capsule by mouth daily at bedtime for 5 days. tizanidine HCl (ZANAFLEX ORAL) Zanaflex Phentermine HCl 37.5 mg tablet once daily. ALPRAZolam (XANAX) 1 mg tablet Take 1 mg by mouth twice daily as needed. No current facility-administered medications for this visit. ALLERGIES Allergen Reactions Ciprofloxacin Unknown Dicyclomine Unknown Ketorolac Unknown Lorazepam Unknown Methylprednisolone Other: See Comments Rash, blistering Nitrofurantoin Unknown Penicillins Unknown Prednisone Intolerance Reglan [Metoclopram* Unknown Zithromax [Azithrom* Unk (more content not included)... Normal [facility] CNOVon 01-30-2024 CNOV Office Visit (BRCRMN ) ----- ZOEOCHOASULLY M ([id number]) 1990 F Date Time Provider Department 01/30/24 9:30 AM ANASTASIA MON BRCRAL During your visit today, we recorded the following information about you: Weight Height 103.9 kg 1.651 m Anastasia Mon PA-C 01/30/2024 1:52 PM Addendum BREAST FOLLOW UP HISTORY of PRESENT ILLNESS: Sully Cullen Zoe, 33 year old female ith a history of right breast fibroadenoma presents today status post right breast excisional biopsy on 01/08/2024. Final path showed fibroadenoma and benign breast tissue. Ms. Enriquez was seen for post op follow up on 01/19/2024. At that time, she was doing well from surgery and had no additional breast concerns. Patient reports about 4-5 days ago she experienced bloody discharge from the right nipple while manipulating her breast. She noted a second occurrence of bloody nipple discharge which was spontaneous the next day. She has not noticed any subsequent episodes of nipple discharge although she feels the right nipple was slightly inverting last night. She reports a distant history of clear nipple discharge several months ago. Ms. Enriquez also noticed two new non-tender lumps in the right breast about 1 week ago- one quarter-sized in the superior breast and the other pea-sized lump in the inferior breast which are not near her surgical site. Patient has limited contact with paternal side of family, however, in the past couple weeks she has learned that 3 paternal aunts have had breast cancer. She does not know ages of diagnoses, but was told one aunt was diagnosed in her 40s. Her father has 11 siblings total, although she is unsure of the # of sisters. PERSONAL BREAST HISTORY: Past breast history (prior to this encounter) is as follows: Breast biopsy: 07/07/23 right breast 8oclock 4-5cmfn, fibrocystic change, concordant Breast cysts: No Breast surgery: 01/08/24 right breast excisional biopsy- fibroadenoma Breast cancer: No CANCER SURVEILLANCE: Mammograms: 06/25/23 [...] No She is s/p hysterectomy for endometriosis. Ovaries remain intact. She does not use any control. History of Mantle Radiation prior to the age of 29: No Obesity: Yes, 38.11 kg/m Current Weight: 229 lb Mammographic density: The breasts are heterogeneously dense which limits the sensitivity of mammography Personal History of Benign Atypical Breast Biopsy: No Alcohol use: occasional PAST MEDICAL HISTORY: PAST MEDICAL HISTORY Diagnosis Date Insomnia Kidney stone PAST SURGICAL HISTORY: PAST SURGICAL HISTORY Procedure Laterality Date BUNIONECTOMY, LAPIDUS-TYPE rt foot BX OF BREAST; INCISIONAL RT BREAST 2X PAST SURGICAL HISTORY OF Nephrostomy tube removed PAST SURGICAL HISTORY OF hysterectomy still have ovaries PAST SURGICAL HISTORY OF cyst on ovaries removed several time PAST SURGICAL HISTORY OF kidney stones PAST SURGICAL HISTORY OF exploratory surgery for endometriosis PAST SURGICAL HISTORY OF LEEP procedure PAST SURGICAL HISTORY OF colonoscopy x 2 SALPINGECTOMY Bilateral 2010 SOCIAL HISTORY: Social History Tobacco Use Smoking status: Never Smokeless tobacco: Never Substance Use Topics Alcohol use: Yes Comment: about 1-2 times per month will have ~2 drinks Drug use: Never Caffeine intake: 1 soda / day Exercise: 1-2 times weekly FAMILY HISTORY: Family history of breast cancer: paternal grandmother, unsure of age, no genetic testing, three paternal aunts (one diagnosed in her 40s), limited contact with paternal side of family Family history of ovarian cancer: None Number of sisters: 2 Number of maternal aunts: 2 Number of paternal aunts: 6 (per prior documentation), patient reports 11 siblings total and unsure of # of females Ashkenazi Ancestry: no Has Patient had Genetic Testing? No Other Cancer: father with lung cancer, living There is no family history of prostate, colon, uterine, pancreatic, gastric, brain, renal cell or thyroid cancer. There is no family history of melanoma, sarcoma or leukemia. Osteoporosis: None Stroke: None Blood Clot: None Heart attack: None Thyroid Nodule or Goiter: None Autism: None FAMILY HISTORY Problem Relation Age of Onset Lung Cancer Father Heart Attack Father Osteoporosis Maternal Grandmother Cancer Maternal Grandmother IN NECK Breast Cancer Paternal Grandmother Breast Cancer Paternal Aunt unsure of age at di (more content not included)... Normal [facility] [employer] BREAST LTD RTon 01-29 [facility] [employer] BREAST LTD RT * * *Final Report* * * DATE OF EXAM: Jan 30 2024 10:28AM [facility] 0594 - [facility] BREAST LTD RT / PROCEDURE REASON: multiple diagnoses * * * * Physician Interpretation * * * * RESULT: [address] [place] [address] HISTORY: Patient is 33 years old and is seen for diagnostic evaluation of a palpable abnormality in the right breast. The patient has no personal history of cancer. COMPARISON STUDIES: The present examination has been compared to prior imaging studies dated 07/07/2023 (ultrasound), 08/07/2023 (ultrasound), 09/08/2023 (mammogram), 09/08/2023 and 01/07/2024 (mammogram). ULTRASOUND TECHNIQUE: Targeted ultrasound of the indicated area was performed. Cam scale images were saved. ULTRASOUND FINDINGS: Targeted ultrasound examination of the breast was performed in the areas of the reported palpable abnormalities. Normal fibroglandular elements are seen with no discrete solid or cystic mass identified. IMPRESSION: There is no abnormality seen in the breast to correspond with the reported palpable abnormalities. Clinical follow-up is recommended. Follow up with ACR and NCCN guidelines is otherwise recommended. BI-RADS Category 1: Negative Interpreting Radiologist: Henrique Oro M.D. Electronically signed on: 01/30/2024 Director Of Digital Technology: BISHOP Transcribe Date/Time: Jan 30 2024 10:14A Dictated by : LOUIE DOLL DO This examination was interpreted and the report reviewed and electronically signed by: HENRIQUE ORO MD on Jan 30 2024 10:36AM EST [id number] Normal [facility] US Breast - right limitedon 01-30-2024 IMPRESSION: There is no abnormality seen in the breast to correspond with the reported palpable abnormalities. Clinical follow-up is recommended. Follow up with ACR and NCCN guidelines is otherwise recommended. BI-RADS Category 1: Negative Interpreting Radiologist: Henrique Oro M.D. Electronically signed on: 01/30/2024 Director Of Digital Technology: BISHOP Transcribe Date/Time: Jan 30 2024 10:14A Dictated by : LOUIE DOLL DO This examination was interpreted and the report reviewed and electronically signed by: HENRIQUE ORO MD on Jan 30 2024 10:36AM EST DIVISION OF RADIOLOGY * * *Final Report* * * DATE OF EXAM: Jan 30 2024 10:28AM [facility] 0594 - [facility] US BREAST LTD RT / PROCEDURE REASON: multiple diagnoses * * * * Physician Interpretation * * * * RESULT: [address] [place] [address] HISTORY: Patient is 33 years old and is seen for diagnostic evaluation of a palpable abnormality in the right breast. The patient has no personal history of cancer. COMPARISON STUDIES: The present examination has been compared to prior imaging studies dated 07/07/2023 (ultrasound), 08/07/2023 (ultrasound), 09/08/2023 (mammogram), 09/08/2023 and 01/07/2024 (mammogram). ULTRASOUND TECHNIQUE: Targeted ultrasound of the indicated area was performed. Cam scale images were saved. ULTRASOUND FINDINGS: Targeted ultrasound examination of the breast was performed in the areas of the reported palpable abnormalities. Normal fibroglandular elements are seen with no discrete solid or cystic mass identified. DIVISION OF RADIOLOGY Provider, [facility] - 01/30/2024 * * *Final Report* * * DATE OF EXAM: Jan 30 2024 10:28AM [facility] 0594 - [facility] BREAST LTD RT / PROCEDURE REASON: multiple diagnoses * * * * Physician Interpretation * * * * RESULT: [address] [place] [address] HISTORY: Patient is 33 years old and is seen for diagnostic evaluation of a palpable abnormality in the right breast. The patient has no personal history of cancer. COMPARISON STUDIES: The present examination has been compared to prior imaging studies dated 07/07/2023 (ultrasound), 08/07/2023 (ultrasound), 09/08/2023 (mammogram), 09/08/2023 and 01/07/2024 (mammogram). ULTRASOUND TECHNIQUE: Targeted ultrasound of the indicated area was performed. Cam scale images were saved. ULTRASOUND FINDINGS: Targeted ultrasound examination of the breast was performed in the areas of the reported palpable abnormalities. Normal fibroglandular elements are seen with no discrete solid or cystic mass identified. IMPRESSION IMPRESSION: There is no abnormality seen in the breast to correspond with the reported palpable abnormalities. Clinical follow-up is recommended. Follow up with ACR and NCCN guidelines is otherwise recommended. BI-RADS Category 1: Negative Interpreting Radiologist: Henrique Oro M.D. Electronically signed on: 01/30/2024 Director Of Digital Technology: BISHOP Transcribe Date/Time: Jan 30 2024 10:14A Dictated by : LOUIE DOLL, DO This examination was interpreted and the report reviewed and electronically signed by: HENRIQUE ORO MD on Jan 30 2024 10:36AM EST [facility] Radiology Study observation (narrative) [facility] US Breast - right limitedOrd ered By: [facility] Provider on 01-30-2024 [facility] CNOVon 01-19-2024 CNOV Office Visit (BRCRMN ) ----- SULLY ENRIQUEZ ([id number]) 1990 F Date Time Provider Department 01/19/24 2:45 PM ANASTASIA MON During your visit today, we recorded the following information about you: Weight Height 103.9 kg 1.651 m Anastasia Mon PA-C 01/19/2024 3:40 PM Signed BREAST SURGERY POST OPERATIVE FOLLOW-UP #1 SERVICE DATE: 01/19/2024 SUBJECTIVE: Sully Enriquez 33 year old female with a history of right breast fibroadenoma presents today status post right breast excisional biopsy on 01/08/2024. Final path showed fibroadenoma and benign breast tissue. She denies any signs of infection such as erythema at surgical site, fever, or chills. She was initially having high pain levels at surgical site post op, but reports now this is a 3/10 discomfort and is only taking Tylenol occasionally at this time. Pain is worse after using right arm more than usual. She also reports itchiness beneath her incision. Of note, she just found out her paternal aunt had breast cancer previously and is unsure of age at diagnosis. She states the aunt has since passed from an unrelated cause and is unable to find out any additional information. SURGICAL PATHOLOGY: FINAL DIAGNOSIS Right breast mass, ZAYDA-localized excision: - Fibroadenoma. - Adjacent breast tissue with cystic change, apocrine metaplasia, usual ductal hyperplasia, and columnar cell change. - Core biopsy site changes and clip x 2. EW OF SYSTEMS: Review Of Systems See HPI OBJECTIVE: PHYSICAL EXAM: Ht 165.1 cm (5' 5 ) Wt 103.9 kg (229 lb) BMI 38.11 kg/m? Body mass index is 38.11 kg/m?. Physical Exam Constitutional: General: She is not in acute distress. Appearance: Normal appearance. She is not ill-appearing. HENT: Head: Normocephalic and atraumatic. Chest: Comments: Steri strips and skin glue overlying LOQ surgical incision without surrounding erythema or drainage. Tissue soft beneath. Assessment ASSESSMENT: (D24.1) Breast fibroadenoma, right (primary encounter diagnosis) (N60.11, N60.12) Fibrocystic breast changes of both breasts (Z98.890) Post-operative state Sully Enriquez 33 year old female with a history of right breast fibroadenoma presents today status post right breast excisional biopsy on 01/08/2024. Final path showed fibroadenoma and benign breast tissue. She is recovering well post operatively. PLAN: Reviewed benign pathology report and provided copy to patient. Remove remaining steri strips after 2 weeks post op or as they peel off on their own Avoid heavy lifting >10 lbs with right arm for 2 weeks, avoid submerging in water for 4 weeks Follow up with surgical team PRN Follow up with medical breast team in 6 months or PRN All questions were answered; patient has no further concerns. Anastasia Mon PA-C Allergies As of Date: 01/19/2024 Noted Allergy Reaction CIPROFLOXACIN 03/06/2021 16 - Unknown DICYCLOMINE 03/06/2021 16 - Unknown KETOROLAC 03/06/2021 16 - Unknown LORAZEPAM 03/06/2021 16 - Unknown METHYLPREDNISOLONE 01/06/2024 14 - Other: See Comments Comments: Rash, blistering NITROFURANTOIN 03/06/2021 16 - Unknown PENICILLINS 03/06/2021 16 - Unknown PREDNISONE 12/26/2023 5 - Intolerance REGLAN (METOCLOPRAMIDE) 03/06/2021 16 - Unknown ZITHROMAX (AZITHROMYCIN) 03/06/2021 16 - Unknown Date Reviewed: 01/19/2024 Reviewed by: Libertad Glass MA - Fully Assessed Reason for Visit: Post Op [174] Primary Visit Diagnosis:Breast fibroadenoma, right [D24.1] Other Visit Diagnoses:Fibrocystic breast changes of both breasts [N60.11, N60.12] Post-operative state [Z98.890] Prescriptions as of 01/19/2024 - ondansetron (ZOFRAN) 4 mg tablet Take 1 tablet by mouth every 8 hours as needed for nausea/vomiting. - acetaminophen (TYLENOL) 325 mg tablet Take 2 tablets by mouth every 6 hours as needed (for pain.). - ibuprofen (MOTRIN) 600 mg tablet Take 1 tablet by mouth every 8 hours as needed for pain. - gabapentin (NEURONTIN) 100 mg capsule Take 1 capsule by mouth daily at bedtime for 5 days. - tizanidine HCl (ZANAFLEX ORAL) Zanaflex - Phentermine HCl 37.5 mg tablet once daily. - ALPRAZolam (XANAX) 1 mg tablet Take 1 mg by mouth twice daily as needed. Problem List As Of Date 01/19/2024 Noted Resolved Seizure (HCC) [R56.9] 03/06/2021 Headaches [R51.9] 03/07/2021 Breast fibroadenoma, right [D24.1] 12/26/2023 Difficult intravenous access [Z78.9] 01/06/2024 Obesity (BMI 30-39.9) [E66.9] 01/06/2024 POTS (postural orthostatic tachycardia syndrome*01/06/2024 Rash [R21] 01/06/2024 Encounter Status:Closed [facility]IA MON [facility] SULLY ENRIQUEZ ([id number]) 1990 F Date Time Provider Department 01/09/24 ADELE SUTTON During your visit today, we recorded the following information about you: Anyi Cheatham 01/09/2024 1:59 PM Signed Patient called stating that since last night she is experiencing right side pain and arm movement makes it worse (level 8), warm to touch, nausea. Patient can be reached at [phone]. Kobe Francisco 01/09/2024 4:36 PM Signed Returned call and spoke to pt. Pt stated she is alternating tylenol and ibuprofen and also took Neurontin last night. Pt stated, nothing helped. Pt also stated that she feels nauseous and thinks its from the pain. Spoke withDr. Sutton while in clinic, she will order additional medication for pt. Allergies As of Date: 01/09/2024 Noted Allergy Reaction CIPROFLOXACIN 03/06/2021 16 - Unknown DICYCLOMINE 03/06/2021 16 - Unknown KETOROLAC 03/06/2021 16 - Unknown LORAZEPAM 03/06/2021 16 - Unknown METHYLPREDNISOLONE 01/06/2024 14 - Other: See Comments Comments: Rash, blistering NITROFURANTOIN 03/06/2021 16 - Unknown PENICILLINS 03/06/2021 16 - Unknown PREDNISONE 12/26/2023 5 - Intolerance REGLAN (METOCLOPRAMIDE) 03/06/2021 16 - Unknown ZITHROMAX (AZITHROMYCIN) 03/06/2021 16 - Unknown Date Reviewed: 01/08/2024 Reviewed by: Maritza Beebe, JUS - Fully Assessed Reason for Visit: Breast Problem [16] Prescriptions as of 01/09/2024 - oxyCODONE IR (ROXICODONE) 5 mg immediate release tablet Take 1 tablet by mouth every 8 hours as needed for pain for up to 5 days. - ondansetron (ZOFRAN) 4 mg tablet Take 1 tablet by mouth every 8 hours as needed for nausea/vomiting. - acetaminophen (TYLENOL) 325 mg tablet Take 2 tablets by mouth every 6 hours as needed (for pain.). - ibuprofen (MOTRIN) 600 mg tablet Take 1 tablet by mouth every 8 hours as needed for pain. - gabapentin (NEURONTIN) 100 mg capsule Take 1 capsule by mouth daily at bedtime for 5 days. - tizanidine HCl (ZANAFLEX ORAL) Zanaflex - Phentermine HCl 37.5 mg tablet once daily. - ALPRAZolam (XANAX) 1 mg tablet Take 1 mg by mouth twice daily as needed. 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] 12/26/2023 Difficult intravenous access [Z78.9] 01/06/2024 Obesity (BMI 30-39.9) [E66.9] 01/06/2024 POTS (postural orthostatic tachycardia syndrome*01/06/2024 Rash [R21] 01/06/2024 Encounter Status:Closed by KOBE WALLIS on 01/09/24 Normal [facility] ANES POSTPROC EVALon 024 ANES POSTPROC EVAL HNO ID: [id number] Author: FAINA DAVIS MD Service: Anesthesiology Author Type: Anesthesiologist Type: Anesthesia Postprocedure Evaluation Filed: 01/08/2024 11:15 Note Text: POST ANESTHESIA EVALUATION NOTE : 1990 Procedure Summary Date: 01/08/24 Room / Location: [address] Anesthesia Start: 731 Anesthesia Stop: 922 Procedure: RIGHT ZAYDA EXCISIONAL BIOPSY (Right: Breast) Diagnosis: Breast fibroadenoma, right (Breast fibroadenoma, right [D24.1]) Surgeons: Adele Sutton MD Responsible Provider: Bambi Magana DO Anesthesia Type: general ASA Status: 2 Anesthesia Type: general Airway Type: LMA Last Vitals Vitals Value Taken Time BP 138/93 01/08/24 1000 Temp 36.2 ?C (97.2 ?F) 01/08/24 0945 HR SpO2 83 01/08/24 1013 Resp 18 01/08/24 1000 SpO2 98 % 01/08/24 1013 Vitals shown include unfiled device data. Post Anesthesia Patient Status Patient Evaluation: PACU. PACU/ICU Patient Condition: stable. Anticipated Disposition: phase 2 then home. Neurological Status: aware and responsive. Pulmonary Status: breathing comfortably on room air Airway Control: returned to baseline unsupported. Cardiovascular Status: stable. Pain Management: clinically adequate Postoperative Hydration: acceptable. Intraoperative Events: no significant anesthesia events Post Operative Nausea/Vomiting Status: no significant post operative nausea or vomiting Recommendation: continue current plan of care. Anesthesia Observations No Documentation SIGNATURE: Faina Davis MD PATIENT NAME: Sully Enriquez DATE: January 08, 2024 TIME: 11:15 AM CSN: [id number] Normal [facility] ANES PRE-OPon 01-08-2024 ANES PRE-OP HNO ID: [id number] Author: BAMBI MAGANA DO Service: Anesthesiology Author Type: Anesthesiologist Type: Anesthesia Preprocedure Evaluation Filed: 01/08/2024 07:07 Note Text: ANESTHESIOLOGY DAY OF SURGERY NOTE : 1990 Procedure Information Date/Time: 01/08/24729 Procedure: RIGHT ZAYDA EXCISIONAL BIOPSY (Right: Breast) Location: [address] Surgeons: Adele Sutton MD Estimated body mass index is 38.12 kg/m? as calculated from the following: Height as of 01/06/24: 165.1 cm (5' 5 ). Weight as of this encounter: 103.9 kg (229 lb 0.9 oz). Most recent hematocrit and potassium results: Hematocrit 41.8 01/07/2024 Potassium 4.1 01/07/2024 Relevant Problems No relevant active problems I - PHYSICAL EVALUATION AIRWAY Patient intubated: No. Tracheostomy tube not present Mallampati: III. TM distance: >3 FB. Neck ROM: full ROM without neurological symptoms. Mouth opening: adequate. Short neck: no. Thick neck: yes DENTAL Dental findings: teeth intact. Additional exam findings: yes. CARDIOVASCULAR Rhythm: regular Rate: normal PULMONARY Breath sounds clear to auscultation. II - ANESTHESIA PLAN ASA Score: 2 Anesthetic Plan: general Airway type: LMA The patient is not a current smoker. NPO Status: adequate Beta Jimmie Monitoring Plan Monitoring plan: standard ASA. Post Procedure Analgesic Plan Postoperative analgesic plan: parenteral or oral opioids and per surgical service. Informed Consent Anesthetic risks, benefits, alternatives and personnel discussed. Consent obtained from: patient. Anesthetic risks, benefits, alternatives, personnel and consent discussed: yes. Patient / Responsible Constitution Party agrees to proceed: yes Patient / Surrogate agrees to blood products: Yes Significant changes in the patient condition since the History and Physical, not otherwise documented in primary service progress note: no. Potential Anesthesia issues that may suggest increased risk of complications or contraindication to planned procedure: none. Vitals Value Taken Time BP 123/85 01/08/24 0647 Pulse 64 01/08/24 0647 Resp 16 01/08/24 0647 Temp 36.3 ?C (97.3 ?F) 01/08/24 0647 SpO2 99 % 01/08/2447 Facility-Administered Medications as of 01/08/2024 Medication Dose Route Frequency lidocaine (PF) 10 mg/mL (1 %) 1-2 mg injection (XYLOCAINE) 0.1-0.2 mL INTRADERMAL PRN lactated ringers iv infusion 5-30 mL/hr INTRAVENOUS CONTINUOUS NaCl 0.9% iv flush bag 20 mL INTRAVENOUS PRN clindamycin iv piggyback 900 mg in D5W 50 mL (CLEOCIN) 900 mg INTRAVENOUS Pre-Op Once Outpatient Medications as of 01/08/2024 Medication Sig Phentermine HCl 37.5 mg tablet once daily. ALPRAZolam (XANAX) 1 mg tablet Take 1 mg by mouth twice daily as needed. I have interviewed and examined the patient. I have reviewed the medical record and/or the pre-anesthesia evaluation, pertinent labs, and test results. This contains updated information obtained within 48 hours of Surgery/Procedure. SIGNATURE: Bambi Magana DO PATIENT NAME: Sully Enriquez DATE: January 08, 2024 TIME: 6:57 AM CSN: [id number] Normal [facility] HISTORY PHYSICALon HISTORY PHYSICAL HNO ID: [id number] Author: ADELE SUTTON MD Service: General Surgery Author Type: Physician Type: H&P Filed: 01/08/2024 07:25 Note Text: UPDATED HISTORY AND PHYSICAL EXAMINATION SERVICE DATE: 01/08/2024 SERVICE TIME: 7:25 AM SENSITIVE EXAMINATION CONSENT: The sensitive examination was discussed with the Patient or Patient's Authorized Manager Air. As applicable, any other physician, advance practice provider, medical student, or other health professional student that will be observing or involved in the sensitive examination for educational or training purposes was discussed with the Patient or Authorized Manager Air. The Patient or Authorized Manager Air has agreed to proceed with the sensitive examination. (Sensitive examination includes inspection and/or palpation of the breasts, pelvis, prostate and anorectal regions) PHYSICAL EXAM MUST BE COMPLETED ON ADMISSION The History and Physical (completed in the past 30 days) has been reviewed and the patient has been examined. The contents accurately reflect the patient's condition with the following additions or revisions since the HANDP was completed. Examination indicates no changes. This HANDP can be found in the Electronic Medical Record dated 01/08/2024, 01/06/24. SIGNATURE: Adele Sutton MD PATIENT NAME: Sully Enriquez DATE: January 08, 2024 TIME: 7:25 AM Normal [facility] SAJI SURGICAL BREAST SPECIMEN RTon 01-08-2024 [facility] SURGICAL BREAST SPECIMEN RT * * *Final Report* * * DATE OF EXAM: Jan 08 2024 8:41AM BCW [id number] - [facility] SURGICAL BREAST SPECIMEN RT / PROCEDURE REASON: Right breast surgical specimen * * * * Physician Interpretation * * * * [place] [address] HISTORY: Right Specimen Radiograph CORRELATION: A single image of the surgical specimen demonstrates a ZAYDA patient service representative, a hydromark open coil clip, and a buckle clip in the specimen. IMPRESSION: SPECIMEN A single image of the surgical specimen demonstrates a ZAYDA patient service representative, a hydromark open coil clip, and a buckle clip in the specimen. SUMMARY: Urgent Results: The results of the specimen radiograph were discussed with Dr. Sutton in the O.R. On 01/08/2024 at 0847. Interpreting Radiologist: Kristi Cheek M.D. Director Of Digital Technology: BISHOP Transcribe Date/Time: Jan 08 2024 8:41A Dictated by : KRISTI CHEEK MD This examination was interpreted and the report reviewed and electronically signed by: KRISTI CHEEK MD on Jan 08 2024 8:50AM EST [id number] Normal [facility] OPERATIVE NOon 01-08-2024 OPERATIVE NO HNO ID: [id number] Author: ADELE SUTTON MD Service: General Surgery Author Type: Physician Type: Operative Report Filed: 01/08/2024 08:43 Note Text: OPERATIVE/PROCEDURE REPORT LOG ID: [id number] SURGERY DATE: 01/08/2024 Incision/Procedure Start Time: 8:00 AM Incision Close/Procedure End Time: 8:42 AM Surgeon(s) and Ditto Machine Operator(s): Surgeons and Role: * Adele Sutton MD - Primary * Modesto Goff MD - Resident - Assisting No Additional Staff SURGERY/PROCEDURES: RIGHT breast ZAYDA STUDENT SERVICES ADVISOR localized excisional biopsy Anesthesia: General Breast History: 06/2023 - Self palpated RIGHT breast mass. 06/25/23 ([facility]) - diagnostic bilateral mammogram/US - diffuse heterogenous density. In the right breast at 8:00 approximately 4 to 5 cm from the nipple, is a hypoechoic avascular area that measures 2.0 x 1.6 x 1.1 cm. In the right upper outer quadrant of the breast at 2.8 x 1.0 x 2.8 cm lymph node is seen. There is no cortical thickening. 07/07/23 ([facility] - US guided CNB 8:00 4-5 CMFN 2 x 1 x 1.7 cm mass with unspecified clip placement - fibrocystic change. Concordant. 08/07/23 ([facility]) - RIGHT breast US - 8:00 4-5 CMFN 2 x 0.9 x 1.3 cm mass. 9:00 9 CMFN, no US abnormality to correlate with area of pain. 09/08/23 ([facility]) - Right breast at 8 o'clock, 4-5 cm from nipple, ultrasound-guided core biopsy with coil clip placement: Fibroadenoma.Concordant. Procedure Details: The patient was taken to the operative suite and placed in a comfortable supine position on the operating table. A preoperative timeout was completed confirming the patient name, procedure, laterality, and other pertinent information. T After monitored anesthesia was obtained, the patient's arms were placed at 90 degrees and secured. Bony prominences were padded per protocol. Pre-op antibiotics were given and SCDs placed. The breast, axilla, and arm were prepped and draped in the standard sterile fashion. A time-out was performed again confirming the patient's name, procedure, laterality, and other pertinent information. The ZAYDA STUDENT SERVICES ADVISOR was localized within the breast, and its location was marked on the skin. Local anesthesia was infiltrated in a dermal and deep parenchymal pattern. A lateral inframammary incision was made. Flaps were created around the lesion, using the ZAYDA STUDENT SERVICES ADVISOR probe for guidance, with an adequate margin on all sides. The specimen was labeled as a RIGHT breast excisional biopsy with a short suture at the superior aspect and a long suture placed at the lateral aspect while still in vivo. After orienting the specimen, it was completely removed from the breast. By palpation there was no additional abnormality within the remaining breast tissue. Specimen imaging was performed which identified the ZAYDA STUDENT SERVICES ADVISOR, the biopsy clips, and the lesion of interest within the surgical specimen. The specimen was then sent to pathology. The cavity was irrigated with sterile water and hemostasis was achieved. The cavity was closed using 0-vicryl scaffolding sutures of the parenchyma, 3-0 monacryl for the interrupted deep dermal layers, and a 4-0 monacryl in a running subcuticular fashion for the skin. The incision was reinforced with skin glue. The breast was then dressed with fluffs and a surgical bra was placed. The patient tolerated the procedure well and there were no complications. All sponge, needle, and, instrument counts were correct at the end of the procedure. I was present and scrubbed for the entire duration of the procedure. The patient was brought to the recovery room awake and in stable condition. 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 (suture sr short superior, long lateral) Tissue Breast, Right, Excision of Lesion SURGICAL PATHOLOGY Adele Sutton MD 01/08/2024 7:10 AM Implantable Devices: None Drains: None Complications: None I/primary surgeon/proceduralist performed the procedure with assistance. Resident assisted with portions of the procedure , under direct supervision and the remainder of the procedure was performed by the primary surgeon/proceduralist with assistance. SIGNATURE: Adele Sutton MD PATIENT NAME: Sully Enriquez DATE: 01/08/2024 TIME: 8:42 AM PAGER/CONTACT #: [phone] Normal [facility] SURGICAL PATHOLOGYon 024 CASE REPORT Normal [facility] Comment on above: Order Comment: Speci men Type: TISSUE SPECIMENOrdering Facility: [facility] Address: [address] [place] [address] Result Comment: Surg [facility] Pathology Report Case: [id number] Authorizing Provider: Adele Sutton MD Collected: 01/08/2024 07:10 AM Ordering Location: Ambulatory Surgery Received: 01/08/2024 09:04 AM Pathologist: Pat Silveira MD Specimen: Breast, Right, Excision of Lesion, zayda patient service representative right breast. 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 - Adjacent breast tissue with cystic change, apocrine metaplasia, usual ductal hyperplasia, and columnar cell change. - Core biopsy site changes and clip x 2. Performed By: #### S ####[facility]ATORYCLIA [id number] [address] LABCLIA [id number] [address] [place] FINAL PERFORMING LAB Normal [facility] Comment on above: Order Comment: Speci men Type: TISSUE SPECIMENOrdering Facility: [facility] Address: [address] [place] [address] Result Comment: Diag nostic interpretation performed at [facility], [address], [place] [id number] CLIA# [id number] Professor Of Art History: Columba Villasenor M.D. Performed By: #### S ####[facility]ORATORYCLIA [id number] [address] STATES OF [facility] LABCLIA [id number] [address] STATES OF [facility] GROSS DESCRIPTION Normal [facility] Comment on above: Order Comment: Speci men Type: TISSUE SPECIMENOrdering Facility: [facility] Address: [address] [place] [address] Result Comment: Emma junior, Right, Excision of Lesion Received in formalin in a Karina labeled breast, right, excision of lesion is an oriented segment of yellow-pink fibroadipose tissue weighing 16.9 Lambl's and measuring 6.2 cm anterior to posterior, 5.4 cm from superior to inferior, and 1.2 cm from lateral to medial. A short stitch sr the superior aspect and a long stitch sr lateral aspect. The superior margin is inked blue. The inferior margin is inked green. The lateral margin is inked red. The medial margin is inked orange. The anterior margin is inked yellow. The posterior margin is inked black. The specimen was x-rayed prior to sectioning to reveal a Zayda patient service representative device, a buckle clip and a HydroMARK open coil clip within the specimen. Also identified is a punctate calcification. The specimen was serially sectioned from anterior to posterior into 11 slices. Slices 7 through 11 demonstrate a lobulated pink-white well-circumscribed fibrous lesion measuring 2.4 cm anterior to posterior, 1.9 cm superior-inferior, 1.0 cm from lateral to medial. The buckle clip and coil clip are identified in slice 8. The mass extends to within 0.1 cm of the lateral margin, 0.1 cm to the medial margin, 0.2 cm to the inferior margin, 0.5 cm of the posterior margin, 0.6 cm to the superior margin and 3.5 cm from the anterior margin. No firm areas are identified. The punctate calcification appears to arise in slice 7. The remaining breast parenchyma is predominantly fibrofatty with irregular rubbery white streaks. No additional lesions are seen. The time the specimen was removed from the patient was 8:31 AM on 01/08/2024. The time placed in formalin was 8:55 AM on 01/08/2024. Manager Air sections are submitted as follows: A1 slice 1 with anterior margin A2 slice 6 (anterior flanking section) with lateral, medial and inferior margins A3 slice 7 with lesion and lateral, medial and inferior margins A4 slice 8 with lesion at site of biopsy clips and lateral, medial and inferior margins A5 slice 9 with lesion and to lateral, medial, superior and inferior margins A6 slice 10 with lesion and lateral, medial, superior and inferior margins A7 slice 11 with lesion and posterior margin Gross examination performed at [facility], [address] [place] [address] CLIA# [id number] [facility] 01/08/24 12:49 PM Performed By: #### S ####[facility]ORATORYCLIA [id number] [address] OF [facility] LABCLIA [id number] [address] Basophils Auto (Bld) [#/Vol] on 01-07-2024 Basophils (Bld) [#/Vol] 0.05 10*3/uL <0.11 [facility] Basophils/100 WBC Auto (Bld) on 01-07-2024 Basophils/100 WBC (Bld) 0.8 % F [facility] Blood manual differential co mment interpretation narrativeon 01-07-2024 Manual differential comment David (Bld) [Interp] Auto [facility] CBC W Auto Differential pane l (Bld)on 01-07-2024 Basophils (Bld) [#/Vol] 0.05 10*3/uL Normal <0.11 [facility] Comment on above: Order Comment: Speci men Type: BLOOD SPECIMENOrdering Facility: [facility] Address: [address] [place] [address] Performed By: #### 5 7021-8 ####[facility] LABCLIA [id number] [place] [address] [place] Basophils/100 WBC (Bld) 0.8 % Normal [facility] Comment on above: Order Comment: Speci men Type: BLOOD SPECIMENOrdering Facility: [facility] Address: [address] [place] [address] Performed By: #### 5 7021-8 ####[facility] LABCLIA [id number] [place] [address] [place] Differential cell count method Nom (Bld) Auto Normal [facility] Comment on above: Order Comment: Speci men Type: BLOOD SPECIMENOrdering Facility: [facility] Address: [address] [place] [address] Performed By: #### 5 7021-8 ####[facility] LABCLIA [id number] [place] [address] [place] Eosinophils (Bld) [#/Vol] 0.10 10*3/uL Normal <0.46 [facility] Comment on above: Order Comment: Speci men Type: BLOOD SPECIMENOrdering Facility: [facility] Address: [address] [place] [address] Performed By: #### 5 7021-8 ####[facility] LABCLIA [id number] [address] [place] Eosinophils/100 WBC (Bld) 1.5 % Normal [facility] Comment on above: Order Comment: Speci men Type: BLOOD SPECIMENOrdering Facility: [facility] Address: [address] [place] [address] Performed By: #### 5 7021-8 ####[facility] LABCLIA [id number] [id number] [address] [place] Erythrocyte distribution width (RBC) [Ratio] 11.9 % Normal 11.5-15.0 [facility] Comment on above: Order Comment: Speci men Type: BLOOD SPECIMENOrdering Facility: [facility] Address: [address] [place] [address] Performed By: #### 5 7021-8 ####[facility] LABCLIA [id number] [place] [address] [place] Hematocrit (Bld) [Volume fraction] 41.8 % Normal 36.0-46.0 [facility] [facility] Comment on above: Order Comment: Speci men Type: BLOOD SPECIMENOrdering Facility: [facility] Address: [address] [place] [address] Performed By: #### 5 7021-8 ####[facility] LABCLIA [id number] [place] [address] [place] Hemoglobin (Bld) [Mass/Vol] 14.1 g/dL Normal 11.5-15.5 [facility] Comment on above: Order Comment: Speci men Type: BLOOD SPECIMENOrdering Facility: [facility] Address: [address] [place] [address] Performed By: #### 5 7021-8 ####[facility] LABIA [id number] [place] [address] [place] Immature granulocytes (Bld) [#/Vol] 10*3/uL Normal <0.10 [facility] Comment on above: Order Comment: Speci men Type: BLOOD SPECIMENOrdering Facility: [facility] Address: [address] [place] [address] Performed By: #### 5 7021-8 ####[facility] LABCLIA [id number] [place] [address] [place] Immature granulocytes/100 WBC (Bld) 0.2 % Normal [facility] Comment on above: Order Comment: Speci men Type: BLOOD SPECIMENOrdering Facility: [facility] Address: [address] [place] [address] Performed By: #### 5 7021-8 ####[facility] LABCLIA [id number] [place] [address] [place] Lymphocytes (Bld) [#/Vol] 2.46 10*3/uL Normal 1.00-4.00 [facility] Comment on above: Order Comment: Speci men Type: BLOOD SPECIMENOrdering Facility: [facility] Address: [address] [place] [address] Performed By: #### 5 7021-8 ####[facility] LABCLIA [id number] [place] [address] [place] Lymphocytes/100 WBC (Bld) 36.9 % Normal [facility] Comment on above: Order Comment: Speci men Type: BLOOD SPECIMENOrdering Facility: [facility] Address: [address] [place] [address] Performed By: #### 5 7021-8 ####[facility] LABCLIA [id number] [place] [address] [place] MCH (RBC) [Entitic mass] 31.8 pg Normal 26.0-34.0 [facility] Comment on above: Order Comment: Speci men Type: BLOOD SPECIMENOrdering Facility: [facility] Address: [address] [place] [address] Performed By: #### 5 7021-8 ####[facility] LABCLIA [id number] [place] [address] [place] MCHC (RBC) [Mass/Vol] 33.7 g/dL Normal 30.5-36.0 [facility] Comment on above: Order Comment: Speci men Type: BLOOD SPECIMENOrdering Facility: [facility] Address: [address] [place] [address] Performed By: #### 5 7021-8 ####[facility] LABCLIA [id number] [place] [address] [place] MCV (RBC) [Entitic vol] 94.4 fL Normal 80.0-100.0 C [facility] Comment on above: Order Comment: Speci men Type: BLOOD SPECIMENOrdering Facility: [facility] Address: [address] [place] [address] Performed By: #### 5 7021-8 ####[facility] LABCLIA [id number] [place] [address] [place] Monocytes (Bld) [#/Vol] 0.48 10*3/uL Normal <0.87 [facility] Comment on above: Order Comment: Speci men Type: BLOOD SPECIMENOrdering Facility: [facility] Address: [address] [place] [address] Performed By: #### 5 7021-8 ####[facility] LABCLIA [id number] [place] [address] [place] Monocytes/100 WBC (Bld) 7.2 % Normal C [facility] Comment on above: Order Comment: Speci men Type: BLOOD SPECIMENOrdering Facility: [facility] Address: [address] [place] [address] Performed By: #### 5 7021-8 ####[facility] LABCLIA [id number] [place] [address] [place] Neutrophils (Bld) [#/Vol] 3.56 10*3/uL Normal 1.45-7.50 [facility] Comment on above: Order Comment: Speci men Type: BLOOD SPECIMENOrdering Facility: [facility] Address: [address] [place] [address] Performed By: #### 5 7021-8 ####[facility] LABCLIA [id number] [place] [address] [place] Neutrophils/100 WBC (Bld) 53.4 % Normal [facility] Comment on above: Order Comment: Speci men Type: BLOOD SPECIMENOrdering Facility: [facility] Address: [address] [place] [address] Performed By: #### 5 7021-8 ####[facility] LABCLIA [id number] [place] [address] [place] Nucleated RBC (Bld) [#/Vol] 10*3/uL Normal <0.01 [facility] Comment on above: Order Comment: Speci men Type: BLOOD SPECIMENOrdering Facility: [facility] Address: [address] [place] [address] Performed By: #### 5 7021-8 ####[facility] LABCLIA [id number] [place] [address] [place] Nucleated RBC/100 WBC (Bld) [Ratio] 0.0 /100 WBC Normal [facility] Comment on above: Order Comment: Speci men Type: BLOOD SPECIMENOrdering Facility: [facility] Address: [address] [place] [address] Performed By: #### 5 7021-8 ####[facility] LABCLIA [id number] [place] [address] [place] Platelet mean volume (Bld) [Entitic vol] 10.9 fL Normal 9.0-12.7 [facility] Comment on above: Order Comment: Speci men Type: BLOOD SPECIMENOrdering Facility: [facility] Address: [address] [place] [address] Performed By: #### 5 7021-8 ####[facility] LABCLIA [id number] [place] [address] [place] Platelets (Bld) [#/Vol] 211 10*3/uL Normal 150-400 [facility] Comment on above: Order Comment: Speci men Type: BLOOD SPECIMENOrdering Facility: [facility] Address: [address] [place] [address] Performed By: #### 5 7021-8 ####[facility] LABCLIA [id number] [address] [address] [place] RBC (Bld) [#/Vol] 4.43 10*6/uL Normal 3.90-5.20 [facility] Comment on above: Order Comment: Speci men Type: BLOOD SPECIMENOrdering Facility: [facility] Address: [address] [place] [address] Performed By: #### 5 7021-8 ####[facility] LABIA [id number] [place] [address] [place] WBC (Bld) [#/Vol] 6.66 10*3/uL Normal 3.70-11.00 [facility] Comment on above: Order Comment: Speci men Type: BLOOD SPECIMENOrdering Facility: [facility] Address: [address] [place] [address] Performed By: #### 5 7021-8 ####[facility] LABIA [id number] [place] [address] [place] Comprehensive metabolic 2000 panelon 01-07-2024 Albumin [Mass/Vol] 4.5 g/dL Normal 3.9-4.9 [facility] Comment on above: Order Comment: Speci men Type: BLOOD SPECIMENOrdering Facility: [facility] Address: [address] [place] [address] Performed By: #### 2 4323-8 ####[facility] LABIA [id number] [place] [address] [place] ALP [Catalytic activity/Vol] 49 U/L Normal 34-123 [facility] Comment on above: Order Comment: Speci men Type: BLOOD SPECIMENOrdering Facility: [facility] Address: [address] [place] [address] Performed By: #### 2 4323-8 ####[facility] LABIA [id number] [id number] [address] [place] ALT [Catalytic activity/Vol] 21 U/L Normal 7-38 [facility] Comment on above: Order Comment: Speci men Type: BLOOD SPECIMENOrdering Facility: [facility] Address: [address] [place] [address] Performed By: #### 2 4323-8 ####[facility] LABCLIA [id number] [address] [address] [place] Anion gap [Moles/Vol] 21 mmol/L High 8-15 [facility] Comment on above: Order Comment: Speci men Type: BLOOD SPECIMENOrdering Facility: [facility] Address: [address] [place] [address] Performed By: #### 2 4323-8 ####[facility] LABCLIA [id number] [place] [address] [place] AST [Catalytic activity/Vol] 24 U/L Normal 13-35 [facility] Comment on above: Order Comment: Speci men Type: BLOOD SPECIMENOrdering Facility: [facility] Address: [address] [place], [place] [address] Performed By: #### 2 4323-8 ####[facility] LABCLIA [id number] [place] [address] [place] Bilirubin [Mass/Vol] 0.7 mg/dL Normal 0.2-1.3 [facility] Comment on above: Order Comment: Speci men Type: BLOOD SPECIMENOrdering Facility: [facility] Address: [address] [place] [address] Performed By: #### 2 4323-8 ####[facility] LABCLIA [id number] [place] [address] [place] Calcium [Mass/Vol] 9.1 mg/dL Normal 8.5-10.2 [facility] Comment on above: Order Comment: Speci men Type: BLOOD SPECIMENOrdering Facility: [facility] Address: [address] [place] [address] Performed By: #### 2 4323-8 ####[facility] LABCLIA [id number] [place] [address] [place] Chloride [Moles/Vol] 104 mmol/L Normal 98-107 [facility] Comment on above: Order Comment: Speci men Type: BLOOD SPECIMENOrdering Facility: [facility] Address: [address] [place] [address] Performed By: #### 2 4323-8 ####[facility] LABCLIA [id number] [place] [address] [place] CO2 [Moles/Vol] 14 mmol/L Low 22-30 [facility] Comment on above: Order Comment: Speci men Type: BLOOD SPECIMENOrdering Facility: [facility] Address: [address] [place] [address] Performed By: #### 2 4323-8 ####[facility] LABCLIA [id number] [place] [address] [place] Creatinine [Mass/Vol] 0.83 mg/dL Normal 0.58-0.96 [facility] Comment on above: Order Comment: Speci men Type: BLOOD SPECIMENOrdering Facility: [facility] Address: [address] [place] [address] Performed By: #### 2 4323-8 ####[facility] LABIA [id number] [place] [address] [place] Creatinine and Glomerular filtration rate.predicted panel (S/P/Bld) 95 mL/min/1.73m??? Normal >=60 [facility] Comment on above: Order Comment: Speci men Type: BLOOD SPECIMENOrdering Facility: [facility] Address: [address] [place] [address] Result Comment: Rosalia mated Glomerular Filtration Rate (eGFR) is calculated using the 2020 CKD-EPI creatinine equation. This equation utilizes serum creatinine, sex, and age as parameters. The creatinine assay has traceable calibration to isotope dilution-mass spectrometry. Refer to KDIGO guidelines for clinical interpretation. In patients with unstable renal function, e.g. those with acute kidney injury, the eGFR may not accurately reflect actual GFR. Performed By: #### 2 4323-8 ####[facility] LABCLIA [id number] [address] [address] [place] Glucose [Mass/Vol] 85 mg/dL Normal 74-99 [facility] Comment on above: Order Comment: Speci men Type: BLOOD SPECIMENOrdering Facility: [facility] Address: [address] [place] [address] Result Comment: The [place] Diabetes Association (ADA) provides guidance for cutoff values for fasting glucose and random glucose. The ADA defines fasting as no caloric intake for at least 8 hours. Fasting plasma glucose results between 100 to 125 mg/dL indicate increased risk for diabetes (prediabetes). Fasting plasma glucose results greater than or equal to 126 mg/dL meet the criteria for diagnosis of diabetes. In the absence of unequivocal hyperglycemia, results should be confirmed by repeat testing. In a patient with classic symptoms of hyperglycemia or hyperglycemic crisis, random plasma glucose results greater than or equal to 200 mg/dL meet the criteria for diagnosis of diabetes. Reference: Standards of Medical Care in Diabetes 2016, [place] Diabetes Association. Diabetes Care. 2016.39(Suppl 1). Performed By: #### 2 4323-8 ####[facility] LABCLIA [id number] [place] [id number] [place] Potassium [Moles/Vol] 4.1 mmol/L Normal 3.7-5.1 [facility] Comment on above: Order Comment: Speci men Type: BLOOD SPECIMENOrdering Facility: [facility] Address: [address] [place] [address] Performed By: #### 2 4323-8 ####[facility] LABCLIA [id number] [address] [address] [place] Protein [Mass/Vol] 7.1 g/dL Normal 6.3-8.0 [facility] Comment on above: Order Comment: Speci men Type: BLOOD SPECIMENOrdering Facility: [facility] Address: [address] [place] [address] Performed By: #### 2 4323-8 ####[facility] LABCLIA [id number] [place] [address] [place] Sodium [Moles/Vol] 139 mmol/L Normal 136-144 [facility] Comment on above: Order Comment: Speci men Type: BLOOD SPECIMENOrdering Facility: [facility] Address: [address] [place] [address] Performed By: #### 2 4323-8 ####[facility] LABCLIA [id number] [place] [address] [place] Urea nitrogen [Mass/Vol] 9 mg/dL Normal 7-21 [facility] Comment on above: Order Comment: Speci men Type: BLOOD SPECIMENOrdering Facility: [facility] Address: [address] [place] [address] Performed By: #### 2 4323-8 ####[facility] LABCLIA [id number] [place] [address] [place] Eosinophils/100 WBC Auto (Bl d)on 01-07-2024 Eosinophils/100 WBC (Bld) 1.5 % [facility] Erythrocyte distribution wid th Auto (RBC) [Ratio]on 01-07-2024 Erythrocyte distribution width (RBC) [Ratio] 11.9 % 11.5-15.0 [facility] Hematocrit Auto (Bld) [Volum e fraction]on 01-07-2024 Hematocrit (Bld) [Volume fraction] 41.8 % 36.0-46.0 [facility] Hemoglobin [Mass/volume] in Bloodon 01-07-2024 Hemoglobin (Bld) [Mass/Vol] 14.1 g/dL 11.5-15.5 [facility] Laboratory - Chemistry and C hemistry - challengeon 01-07-2024 Albumin [Mass/Vol] 4.5 g/dL 3.9-4.9 [facility] ALP [Catalytic activity/Vol] 49 U/L 34-123 [facility] ALT [Catalytic activity/Vol] 21 U/L 7-38 [facility] AST [Catalytic activity/Vol] 24 U/L 13-35 [facility] Bilirubin [Mass/Vol] 0.7 mg/dL 0.2-1.3 [facility] Calcium [Mass/Vol] 9.1 mg/dL 8.5-10.2 [facility] Chloride [Moles/Vol] 104 mmol/L 98-107 [facility] CO2 [Moles/Vol] 14 mmol/L Low 22-30 [facility] Creatinine [Mass/Vol] 0.83 mg/dL 0.58-0.96 [facility] Glucose [Mass/Vol] 85 mg/dL 74-99 [facility] Comment on above: The [place] Diabete s Association (ADA) provides guidance for cutoff values for fasting glucose and random glucose. The ADA defines fasting as no caloric intake for at least 8 hours. Fasting plasma glucose results between 100 to 125 mg/dL indicate increased risk for diabetes (prediabetes).Fasting plasma glucose results greater than or equal to 126 mg/dL meet the criteria for diagnosis of diabetes. In the absence of unequivocal hyperglycemia, results should be confirmed by repeat testing. In a patient with classic symptoms of hyperglycemia or hyperglycemic crisis, random plasma glucose results greater than or equal to 200 mg/dL meet the criteria for diagnosis of diabetes.Reference: Standards of Medical Care in Diabetes 2016, [place] Diabetes Association. Diabetes Care. 2016.39(Suppl 1). Potassium [Moles/Vol] 4.1 mmol/L 3.7-5.1 [facility] Sodium [Moles/Vol] 139 mmol/L 136-144 [facility] Urea nitrogen [Mass/Vol] 9 mg/dL 7-21 [facility] Laboratory - Hematology and Cell countson 01-07-2024 Eosinophils (Bld) [#/Vol] 0.10 10*3/uL <0.46 [facility] Immature granulocytes/100 WBC (Bld) 0.2 % [facility] Leukocytes [#/volume] correc armaan for nucleated erythrocytes in Blood by Automated counon 01-07-2024 WBC corrected for nucl RBC Auto (Bld) [#/Vol] 6.66 k/uL 3.70-11.00 [facility] Lymphocytes Auto (Bld) [#/Vo l]on 01-07-2024 Lymphocytes (Bld) [#/Vol] 2.46 10*3/uL 1.00-4.00 [facility] Lymphocytes/100 WBC Auto (Bl d)on 01-07-2024 Lymphocytes/100 WBC (Bld) 36.9 % [facility] DIAGNOSTIC RTon 01-07-20 24 [facility] DIAGNOSTIC RT * * *Final Report* * * DATE OF EXAM: Jan 07 2024 10:19AM W 0626 - [facility] DIAGNOSTIC RT / PROCEDURE REASON: Breast fibroadenoma, right * * * * Physician Interpretation * * * * RESULT: [address] [place] [id number] HISTORY: Patient is 33 years old and is seen for diagnostic evaluation of post-ultrasound guided reflector placement in the right breast. COMPARISON STUDIES: The present examination has been compared to prior imaging studies dated 07/07/2023 (ultrasound), 08/07/2023 (ultrasound) and 09/08/2023 (mammogram). MAMMOGRAM TECHNIQUE: The study was acquired using full field digital technology and interpreted from soft copy. Digital Breast Tomosynthesis (DBT) images were obtained and used to assist in the interpretation of this examination. Computer-aided detection was utilized by the radiologist in the interpretation of this examination. MAMMOGRAM FINDINGS: The breast is heterogeneously dense, which may obscure small masses. IMPRESSION: Finding in the right breast shows successful ZAYDA reflector placement. Mammogram BI-RADS: Post-procedure mammogram for marker placement RISK: Based on the Tyrer-Cuzick (TC) risk assessment model, this patient has a 9.9% lifetime risk of developing breast cancer, meaning they are at average risk for developing breast cancer. However, this is only an estimate based on available history provided on the patient's questionnaire. We encourage all patients talk with their providers about these results, further recommendations for managing breast health, and appropriate supplemental screening options if the patient has dense breast tissue. Interpreting Radiologist: Yamila August M.D. Director Of Digital Technology: BISHOP Transcribe Date/Time: Jan 07 2024 9:53A Dictated by : CARLOS OLMEDO DO This examination was interpreted and the report reviewed and electronically signed by: YAMILA AUGUST MD on Jan 07 2024 10:47AM EST [id number] Normal [facility] US LOC BREAST RTon 01-06 [facility] US LOC BREAST RT * * *Final Report* * * DATE OF EXAM: Jan 07 2024 10:12AM [facility] 0600 - [facility] US LOC BREAST RT / PROCEDURE REASON: Breast fibroadenoma, right * * * * Physician Interpretation * * * * RESULT: [address] [place] [address] HISTORY: 33 year old patient presents for placement of an infrared activated electromagnetic reflector device at the site of the previously noted a mass in the right breast at 8 o'clock posterior depth 4 cm from the nipple. PATIENT CONSENT: A time out was performed [...] patient agreed to undergo the procedure. The radiologist, assisting radiologist, and technologist were present throughout the entire procedure. The child life assistant radiologist was Carlos Olmedo DO. The child life assistant radiologist administered local anesthesia and placed the infrared activated electromagnetic reflector device. Audible Time Out: 10:03 Procedure Start: 10:06 Procedure End: 10:10 Correlation is made to exams dated: 07/07/2023 (ultrasound), 08/07/2023 (ultrasound) and 09/08/2023 (mammogram). Site 1: The skin was prepped in the usual manner. Local anesthetic was administered to the access site. An infrared activated electromagnetic reflector device placement using ultrasound guidance was performed for the mass located in the right breast at 8 o'clock posterior depth 4-5 cm from the nipple. This was described on the previous ultrasound and biopsy reports. The skin was prepped in the usual manner. Local anesthetic was administered to the access site. The localization was approached from the lateral aspect. A location device was inserted into the targeted area under ultrasound guidance. Post procedure mammogram demonstrates accurate placement. A sterile dressing was applied to the access site. Post placement digital imaging demonstrates localization device traverses the targeted area. Reflector placement/activation was verified with Operating Theatre Technician Check following the procedure. IMPRESSION: Site 1: Successful infrared activated electromagnetic reflector device placement for a mass in the right breast at 8 o'clock posterior depth 4-5 cm from the nipple with no apparent complications. A specimen radiograph is recommended. The specimen radiograph should include the Operating Theatre Technician reflector, the [employer] open coil clip, and additional biopsy marking clip. Interpreting Radiologist: Yamila August M.D. Director Of Digital Technology: BISHOP Transcribe Date/Time: Jan 07 2024 9:50A Dictated by : CARLOS OLMEDO, This examination was interpreted and the report reviewed and electronically signed by: YAMILA AUGUST MD on Jan 07 2024 10:46AM EST [id number] Normal [facility] MCH Auto (RBC) [Entitic mass ]on 01-07-2024 MCH (RBC) [Entitic mass] 31.8 pg 26.0-34.0 [facility] MCHC Auto (RBC) [Mass/Vol]on 01-07-2024 MCHC (RBC) [Mass/Vol] 33.7 g/dL 30.5-36.0 [facility] MCV Auto (RBC) [Entitic vol] on 01-07-2024 MCV (RBC) [Entitic vol] 94.4 fL 80.0-100.0 [facility] MG Breast - right Diagnostic for implanton 01-07-2024 IMPRESSION: Finding in the right breast shows successful ZAYDA reflector placement. Mammogram BI-RADS: Post-procedure mammogram for marker placement RISK: Based on the Tyrer-Cuzick (TC) risk assessment model, this patient has a 9.9% lifetime risk of developing breast cancer, meaning they are at average risk for developing breast cancer. However, this is only an estimate based on available history provided on the patient's questionnaire. We encourage all patients talk with their providers about these results, further recommendations for managing breast health, and appropriate supplemental screening options if the patient has dense breast tissue. Interpreting Radiologist: Yamila August M.D. Director Of Digital Technology: BISHOP Trujilloridalton Date/Time: Jan 07 2024 9:53A Dictated by : CARLOS OLMEDO, DO This examination was interpreted and the report reviewed and electronically signed by: YAMILA AUGUST MD on Jan 07 2024 10:47AM [facility] DIVISION OF RADIOLOGY * * *Final Report* * * DATE OF EXAM: Jan 07 2024 10:19AM [facility] 0626 - [facility] DIAGNOSTIC RT / PROCEDURE REASON: Breast fibroadenoma, right * * * * Physician Interpretation * * * * RESULT: [place] [id number] [address] [address] HISTORY: Patient is 33 years old and is seen for diagnostic evaluation of post-ultrasound guided reflector placement in the right breast. COMPARISON STUDIES: The present examination has been compared to prior imaging studies dated 07/07/2023 (ultrasound), 08/07/2023 (ultrasound) and 09/08/2023 (mammogram). MAMMOGRAM TECHNIQUE: The study was acquired using full field digital technology and interpreted from soft copy. Digital Breast Tomosynthesis (DBT) images were obtained and used to assist in the interpretation of this examination. Computer-aided detection was utilized by the radiologist in the interpretation of this examination. MAMMOGRAM FINDINGS: The breast is heterogeneously dense, which may obscure small masses. DIVISION OF RADIOLOGY Provider, [facility] - 01/07/2024 * * *Final Report* * * DATE OF EXAM: Jan 07 2024 10:19AM [facility] 0626 - SAJI DIAGNOSTIC RT / PROCEDURE REASON: Breast fibroadenoma, right * * * * Physician Interpretation * * * * RESULT: [facility] [address] [facility] [address] [place] [address] HISTORY: Patient is 33 years old and is seen for diagnostic evaluation of post-ultrasound guided reflector placement in the right breast. COMPARISON STUDIES: The present examination has been compared to prior imaging studies dated 07/07/2023 (ultrasound), 08/07/2023 (ultrasound) and 09/08/2023 (mammogram). MAMMOGRAM TECHNIQUE: The study was acquired using full field digital technology and interpreted from soft copy. Digital Breast Tomosynthesis (DBT) images were obtained and used to assist in the interpretation of this examination. Computer-aided detection was utilized by the radiologist in the interpretation of this examination. MAMMOGRAM FINDINGS: The breast is heterogeneously dense, which may obscure small masses. IMPRESSION IMPRESSION: Finding in the right breast shows successful ZAYDA reflector placement. Mammogram BI-RADS: Post-procedure mammogram for marker placement RISK: Based on the Tyrer-Cuzick (TC) risk assessment model, this patient has a 9.9% lifetime risk of developing breast cancer, meaning they are at average risk for developing breast cancer. However, this is only an estimate based on available history provided on the patient's questionnaire. We encourage all patients talk with their providers about these results, further recommendations for managing breast health, and appropriate supplemental screening options if the patient has dense breast tissue. Interpreting Radiologist: Yamila August M.D. Director Of Digital Technology: BISHOP Transcribe Date/Time: Jan 07 2024 9:53A Dictated by : CARLOS OLMEDO, This examination was interpreted and the report reviewed and electronically signed by: YAMILA AUGUST MD on Jan 07 2024 10:47AM EST [facility] Radiology Study observation (narrative) [facility] Monocytes Auto (Bld) [#/Vol] on 01-07-2024 Monocytes (Bld) [#/Vol] 0.48 10*3/uL <0.87 [facility] Monocytes/100 WBC Auto (Bld) on 01-07-2024 Monocytes/100 WBC (Bld) 7.2 % [facility] Neutrophils Auto (Bld) [#/Vo l]on 01-07-2024 Neutrophils (Bld) [#/Vol] 3.56 10*3/uL 1.45-7.50 [facility] Neutrophils/100 WBC Auto (Bl d)on 01-07-2024 Neutrophils/100 WBC (Bld) 53.4 % [facility] No Panel InformationOrdered By: [facility]cf Provider on 01-07-2024 [facility] No Panel Informationon 01-06 Estimated GFR (CKD-EPI) 95 mL/min/1.73m??? >=60 [facility] Comment on above: Estimated Glomerular Filtration Rate (eGFR) is calculated using the 2020 CKD-EPI creatinine equation. This equation utilizes serum creatinine, sex, and age as parameters. The creatinine assay has traceable calibration to isotope dilution-mass spectrometry. Refer to KDIGO guidelines for clinical interpretation. In patients with unstable renal function, e.g. those with acute kidney injury, the eGFR may not accurately reflect actual GFR. Immature Granulocyte # (Auto) <0.03 k/uL <0.10 [facility] Nucleated RBC Auto (Bld) [#/ Vol]on 01-07-2024 Nucleated RBC (Bld) [#/Vol] 10*3/uL <0.01 [facility] Nucleated erythrocytes [Pres ence] in Blood by Automated counton 01-07-2024 Nucleated RBC Auto Ql (Bld) 0.0 /100{WBC} [facility] PT EDon 01-07-2024 PT ED HNO ID: [id number] Author: MASHA JOHNSTON Tech Service: ? Author Type: Technologist Type: Patient Education Filed: 01/07/2024 09:45 Note Text: AMBULATORY PATIENT EDUCATION RADIOLOGY TOPIC: [...] LEARNING: None LEARNING RESPONSE Radiology Procedures Ultrasound Guided Needle Localization METHOD OF INSTRUCTION: Individual instruction Written instruction - handouts Verbal instruction PATIENT / FAMILY RESPONSE: Performs skill independently: Wound care FOLLOW-UP PLAN: Complete - No need for follow-up SUPPLEMENTAL MATERIAL: Homegoing instructions REFERRAL (RECOMMENDATION): None Normal [facility] Platelet mean volume Auto (B ld) [Entitic vol]on 01-07-2024 Platelet mean volume (Bld) [Entitic vol] 10.9 fL 9.0-12.7 [facility] Platelets Auto (Bld) [#/Vol] on 01-07-2024 Platelets (Bld) [#/Vol] 211 10*3/uL 150-400 [facility] Protein [Mass/volume] in Ser um or Plasmaon 01-07-2024 Protein [Mass/Vol] 7.1 g/dL 6.3-8.0 [facility] RBC Auto (Bld) [#/Vol]on RBC (Bld) [#/Vol] 4.43 10*6/uL 3.90-5.20 [facility] Serum or plasma anion gap de terminationon 01-07-2024 Anion gap [Moles/Vol] 21 mmol/L High 8-15 [facility] [place] Guidance for localization of Breast - righton 01-07-2024 IMPRESSION: Site 1: Successful infrared activated electromagnetic reflector device placement for a mass in the right breast at 8 o'clock posterior depth 4-5 cm from the nipple with no apparent complications. A specimen radiograph is recommended. The specimen radiograph should include the Operating Theatre Technician reflector, the Hydromark open coil clip, and additional biopsy marking clip. Interpreting Radiologist: Yamila August M.D. Director Of Digital Technology: BISHOP Transcribe Date/Time: Jan 07 2024 9:50A Dictated by : CARLOS OLMEDO, DO This examination was interpreted and the report reviewed and electronically signed by: YAMILA AUGUST MD on Jan 07 2024 10:46AM [facility] DIVISION OF RADIOLOGY * * *Final Report* * * DATE OF EXAM: Jan 07 2024 10:12AM [facility] 0600 - [facility] LOC BREAST RT / PROCEDURE REASON: Breast fibroadenoma, right * * * * Physician Interpretation * * * * RESULT: [place] [address] HISTORY: 33 year old patient presents for placement of an infrared activated electromagnetic reflector device at the site of the previously noted a mass in the right breast at 8 o'clock posterior depth 4 cm from the nipple. PATIENT CONSENT: A time out was performed [...] patient agreed to undergo the procedure. The radiologist, assisting radiologist, and technologist were present throughout the entire procedure. The child life assistant radiologist was Carlos Olmedo DO. The child life assistant radiologist administered local anesthesia and placed the infrared activated electromagnetic reflector device. Audible Time Out: 10:03 Procedure Start: 10:06 Procedure End: 10:10 Correlation is made to exams dated: 07/07/2023 (ultrasound), 08/07/2023 (ultrasound) and 09/08/2023 (mammogram). Site 1: The skin was prepped in the usual manner. Local anesthetic was administered to the access site. An infrared activated electromagnetic reflector device placement using ultrasound guidance was performed for the mass located in the right breast at 8 o'clock posterior depth 4-5 cm from the nipple. This was described on the previous ultrasound and biopsy reports. The skin was prepped in the usual manner. Local anesthetic was administered to the access site. The localization was approached from the lateral aspect. A location device was inserted into the targeted area under ultrasound guidance. Post procedure mammogram demonstrates accurate placement. A sterile dressing was applied to the access site. Post placement digital imaging demonstrates localization device traverses the targeted area. Reflector placement/activation was verified with Operating Theatre Technician Check following the procedure. DIVISION OF RADIOLOGY Provider, [facility] - 01/07/2024 * * *Final Report* * * DATE OF EXAM: Jan 07 2024 10:12AM [place] [address] - [facility] LOC BREAST RT / PROCEDURE REASON: Breast fibroadenoma, right * * * * Physician Interpretation * * * * RESULT: [address] [place] [address] HISTORY: 33 year old patient presents for placement of an infrared activated electromagnetic reflector device at the site of the previously noted a mass in the right breast at 8 o'clock posterior depth 4 cm from the nipple. PATIENT CONSENT: A time out was performed [...] patient agreed to undergo the procedure. The radiologist, assisting radiologist, and technologist were present throughout the entire procedure. The child life assistant radiologist was Carlos Olmedo DO. The child life assistant radiologist administered local anesthesia and placed the infrared activated electromagnetic reflector device. Audible Time Out: 10:03 Procedure Start: 10:06 Procedure End: 10:10 Correlation is made to exams dated: 07/07/2023 (ultrasound), 08/07/2023 (ultrasound) and 09/08/2023 (mammogram). Site 1: The skin was prepped in the usual manner. Local anesthetic was administered to the access site. An infrared activated electromagnetic reflector device placement using ultrasound guidance was performed for the mass located in the right breast at 8 o'clock posterior depth 4-5 cm from the nipple. This was described on the previous ultrasound and biopsy reports. The skin was prepped in the usual manner. Local anesthetic was administered to the access site. The localization was approached from the lateral aspect. A location device was inserted into the targeted area under ultrasound guidance. Post procedure mammogram demonstrates accurate placement. A sterile dressing was applied to the access site. Post placement digital imaging demonstrates localization device traverses the targeted area. Reflector placement/activation was verified with Operating Theatre Technician Check following the procedure. IMPRESSION IMPRESSION: Site 1: Successful infrared activated electromagnetic reflector device placement for a mass in the right breast at 8 o'clock posterior depth 4-5 cm from the nipple with no apparent complications. A specimen radiograph is recommended. The specimen radiograph should include the Operating Theatre Technician reflector, the Hydromark open coil clip, and additional biopsy marking clip. Interpreting Radiologist: Yamila August M.D. Director Of Digital Technology: BISHOP Transcribe Date/Time: Jan 07 2024 9:50A Dictated by : CARLOS OLMEDO DO This examination was interpreted and the report reviewed and electronically signed by: YAMILA AUGUST MD on Jan 07 2024 10:46AM EST [facility] Radiology Study observation (narrative) [facility] Telephone (PANEHI) ----- SULLY ENRIQUEZ ([id number]) 1990 F Date Time Provider Department 01/06/24 CAMILA RUSSO During your visit today, we recorded the following information about you: Camila Russo PA-C 01/06/2024 2:[address] Sutton, I saw this patient today for a virtual PACC visit - scheduled for surgery with you on 01/07. Patient reports she has a rash of left breast that had a blister - the blister resolved but rash is still present, she reports it may have been caused by methylprednisolone she was put on for back pain - not currently on this med now. Rash is not itchy or painful, feels there is a lump on the inside of the breast in this area She said she has let you know at your office visit 12/26/2023. I am not positive if you were aware but I wanted to let you know in case this could be an issue. Thank you, Camila Russo PA-C January 06, 2024 2:13 PM Camila Russo PA-C 01/07/2024 10:55 AM Signed Adele Sutton MD You14 hours ago (8:38 PM) AC Thank you, should be ok. Best, Adele Sutton MD Allergies As of Date: 01/06/2024 Noted Allergy Reaction CIPROFLOXACIN 03/06/2021 16 - Unknown DICYCLOMINE 03/06/2021 16 - Unknown KETOROLAC 03/06/2021 16 - Unknown LORAZEPAM 03/06/2021 16 - Unknown METHYLPREDNISOLONE 01/06/2024 14 - Other: See Comments Comments: Rash, blistering NITROFURANTOIN 03/06/2021 16 - Unknown PENICILLINS 03/06/2021 16 - Unknown PREDNISONE 12/26/2023 5 - Intolerance REGLAN (METOCLOPRAMIDE) 03/06/2021 16 - Unknown ZITHROMAX (AZITHROMYCIN) 03/06/2021 16 - Unknown Date Reviewed: 01/06/2024 Reviewed by: Camila Russo PA-C - Fully Assessed Reason for Visit: Patient Update [1234] Prescriptions as of 01/07/2024 - tizanidine HCl (ZANAFLEX ORAL) Zanaflex - Phentermine HCl 37.5 mg tablet once daily. - ALPRAZolam (XANAX) 1 mg tablet Take 1 mg by mouth twice daily as needed. Problem List As Of Date 01/06/2024 Noted Resolved Seizure (HCC) [R56.9] 03/06/2021 Headaches [R51.9] 03/07/2021 Breast fibroadenoma, right [D24.1] 12/26/2023 Difficult intravenous access [Z78.9] 01/06/2024 Obesity (BMI 30-39.9) [E66.9] 01/06/2024 POTS (postural orthostatic tachycardia syndrome*01/06/2024 Rash [R21] 01/06/2024 Encounter Status:Closed by CAMILA RUSSO on 01/06/24 Normal [facility] HISTORY PHYSICALon HISTORY PHYSICAL HNO ID: [id number] Author: CAMILA RUSSO PA-C Service: ? 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 No epilepsy per patient No treatment needed per patient Takes xanax PRN Saw neurology Difficult intravenous access Assessment: has had difficulty with IV access, has needed US machine Obesity (BMI 30-39.9) Assessment: on phentermine for weight loss Last dose ~01/01/2024 or 01/02/2024, patient unsure which date, but will be on hold for at least 5 days for surgery POTS (postural orthostatic tachycardia syndrome) Assessment: has seen neuro and cardiology Rash Assessment: patient reports she has a rash of left breast that had a blister - the blister resolved but rash is still present, she reports it may have been caused by methylprednisolone she was put on for back pain - not currently on this med now. Rash is not itchy or painful, feels there is a lump on the inside of the breast in this area She said she has let surgeon know at their visit 12/26/2023. I will also send a telephone encounter since rash and lump still present Cantrell Activity Status Index: METS: Climb a flight of stairs or walk up a hill (5.50 METs) DASI Score: 5.5 (Patient's exercise includes: Walking and exercising with weighted ball ) Patient denies any chest pain or undue shortness of breath with the above physical activity. Clinical Frailty Scale: 3. Well, with treated comorbid disease STOP-Bang Score: Often feels tired, fatigued, or sleepy during the daytime BMI greater than 35 kg/m2 Denies snoring loudly Has not been observed to stop breathing or choking/gasping during sleep Denies having high blood pressure Patient 50 years old or younger Does not have a large neck Non-male patient STOP-Bang Score: 2 ANESTHESIA FINDINGS: Intubation History: No history of difficult intubation Significant Anesthesia Considerations: pt reports she wakes up with migraine from anesthesia potential difficult IV/vein access Airway History: No history of difficult airway I - PHYSICAL EVALUATION AIRWAY Patient intubated: No. Tracheostomy tube not present Mallampati: III. TM distance: >3 FB. Neck ROM: full ROM without neurological symptoms. Mouth opening: adequate. Short neck: no. Thick neck: no Cruz present: no Lip Bite Test: II Microretrognathia/Microna gthia/Recessed Chin: No DENTAL Dental findings: teeth intact. II - ANESTHESIA PLAN Anesthetic plan additional comments: - anesthesia choice. Beta Jimmie Monitoring Plan Post Procedure Analgesic Plan Prepared for Surgery: optimally prepared for surgery, pending [see comment]. 1. Telephone encounter to surgeon re. Breast rash/lump 2. Patient to get pre-op labs tomorrow CONSULTS: Patient does not require consults for optimization at this time Planned Anesthetic: anesthesia choice The Following Tests/Procedures Have Been Initiated: Labs ordered by surgeon This is a virtual visit using MyChart video visit. It required patient-provider interaction for the medical decision making as documented below. REASON FOR VISIT: Sully Enriquez is a 33 year old female who is scheduled for Procedure(s): RIGHT ZYADA EXCISIONAL BIOPSY (Right) at the request of Dr. Adele Sutton, Adele Robins MD for consultation. My final recommendation will be communicated back to the requesting physician by way of shared medical record or letter. Subjective The patient has the following: COVID-19 Immunization Status Overdue - Covid-19 Vaccine ( season) Never done No completion, postpone, frequency change, or communication history exists for this topic. CHIEF COMPLAINT: pre-op HPI: This 33 year old female with a history of right breast fibroadenoma is scheduled for the above procedure and presents to the PACC for pre-operative examination. Patient reports she feels a right breast lump, noticed it first ~06/2023. It is painful. She is unclear if it has grown in size. This is a virtual visit. The visit was conducted using Advanced Telemetry video visit. It required patient-provider interaction for the medical decision making as documented below. I have communicated my name and active licensure. The patient's identity and physical location were verified at the time of this visit. Either the patient or their legal community health program representative has been informed of the risks and benefits of and alternatives to treatment through a remote evaluation and consents to proceed with the evaluation re (more content not included)... Normal [facility] 01-02-2024 [facility] Telephone (PASHEF) ----- SULLY ENRIQUEZ ([id number]) 1990 F Date Time Provider Department 01/02/24 SALINA DICKINSON During your visit today, we recorded the following information about you: Salina Dickinson PA-C 01/02/2024 11:26 AM Signed This patient was scheduled with me today for virtual PACC visit. She checked in for appointment at 10:57 AM. I signed into visit at 11:05 AM and noticed that patient was no longer connected to visit. I placed a telephone call to patient and left a voicemail offering assistance with signing in so we could get reconnected. Patient did not return my call. I called again 5 minutes later to check in again and patient did not answer the phone. She did not return my call nor did she sign back into visit. PACC visit was not completed. Can you please contact patient to reschedule? Thank you! Salina Dickinson PA-C PACC Allergies As of Date: 01/02/2024 Noted Allergy Reaction CIPROFLOXACIN 03/06/2021 16 - Unknown DICYCLOMINE 03/06/2021 16 - Unknown KETOROLAC 03/06/2021 16 - Unknown LORAZEPAM 03/06/2021 16 - Unknown NITROFURANTOIN 03/06/2021 16 - Unknown PENICILLINS 03/06/2021 16 - Unknown PREDNISONE 12/26/2023 5 - Intolerance REGLAN (METOCLOPRAMIDE) 03/06/2021 16 - Unknown ZITHROMAX (AZITHROMYCIN) 03/06/2021 16 - Unknown Date Reviewed: 12/26/2023 Reviewed by: Libertad Glass MA - Fully Assessed Reason for Visit: Appointment [186] Prescriptions as of 01/02/2024 - tizanidine HCl (ZANAFLEX ORAL) Zanaflex - Phentermine HCl 37.5 mg tablet once daily. - ALPRAZolam (XANAX) 1 mg tablet Take 1 mg by mouth twice daily as needed. Problem List As Of Date 01/02/2024 Noted Resolved Seizure (HCC) [R56.9] 03/06/2021 Headaches [R51.9] 03/07/2021 Breast fibroadenoma, right [D24.1] 12/26/2023 Encounter Status:Closed by SALINA DICKINSON on 01/02/24 Normal [facility] HISTORY PHYSICALon HISTORY PHYSICAL HNO ID: [id number] Author: SALINA DICKINSON PA-C Service: ? Author Type: Physician Ditto Machine Operator Type: H&P Filed: 01/02/2024 11:27 Note Text: This patient was scheduled with me today for virtual PACC visit. She checked in for appointment at 10:57 AM. I signed into visit at 11:05 AM and noticed that patient was no longer connected to visit. I placed a telephone call to patient and left a voicemail offering assistance with signing in so we could get reconnected. Patient did not return my call. I called again 5 minutes later to check in again and patient did not answer the phone. She did not return my call nor did she sign back into visit. PACC visit was not completed. Message sent to schedulers to please reschedule PACC visit. Salina Dickinson PA-C 01/02/2024 [facility] 12-31-2023 CNPN Telephone (PCMT) ----- SULLY ENRIQUEZ ([id number]) 1990 F Date Time Provider Department 12/31/23 [facility] During your visit today, we recorded the following information about you: Tamika Camacho APRN.CNP 12/31/2023 3:06 PM Signed Patient was scheduled for virtual PACC appt at 1500 today. Patient did not check in for visit. Called patient at 1505, stated they forgot and needed to reschedule This message routed to PACC schedulers to contact patient to reschedule PACC appt. Tamika Camacho APRN.CNP Allergies As of Date: 12/31/2023 Noted Allergy Reaction CIPROFLOXACIN 03/06/2021 16 - Unknown DICYCLOMINE 03/06/2021 16 - Unknown KETOROLAC 03/06/2021 16 - Unknown LORAZEPAM 03/06/2021 16 - Unknown NITROFURANTOIN 03/06/2021 16 - Unknown PENICILLINS 03/06/2021 16 - Unknown PREDNISONE 12/26/2023 5 - Intolerance REGLAN (METOCLOPRAMIDE) 03/06/2021 16 - Unknown ZITHROMAX (AZITHROMYCIN) 03/06/2021 16 - Unknown Date Reviewed: 12/26/2023 Reviewed by: Libertad Glass MA - Fully Assessed Reason for Visit: Missed Appointment [1304] Prescriptions as of 12/31/2023 - tizanidine HCl (ZANAFLEX ORAL) Zanaflex - Phentermine HCl 37.5 mg tablet once daily. - ALPRAZolam (XANAX) 1 mg tablet Take 1 mg by mouth twice daily as needed. Problem List As Of Date 12/31/2023 Noted Resolved Seizure (HCC) [R56.9] 03/06/2021 Headaches [R51.9] 03/07/2021 Breast fibroadenoma, right [D24.1] 12/26/2023 Encounter Status:Closed by TAMIKA CAMACHO on 12/31/23 Normal [facility] Bacteria [Presence] in Urine by AutomatedOrdered By: Mario Glasgow on 12-26-2023 Bacteria Auto Ql (U) Rare [HPF] None Seen [facility] Bilirubin Test strip Ql (U)O rdered By: Mario Glasgow on 12-26-2023 Bilirubin Ql (U) Negative Negative [facility] CNOVon 12-26-2023 CNOV Office Visit (BRCRMN ) ----- SULLY ENRIQUEZ ([id number]) 1990 F Date Time Provider Department 12/26/23 1:00 PM ADELE SUTTON BRMARLON During your visit today, we recorded the following information about you: Weight Height 105.2 kg 1.651 m Adele Sutton MD 12/26/2023 3:52 PM Signed [facility] Department of General Surgery [facility] REASON for TODAY'S VISIT: Patient presents with: New Patient REFERRAL: Referring Provider: Franchesca Man PCP: Keli Strickland FLAVORING OIL FILTERER, FLAVORING OIL FILTERER My clinic note and plan will be communicated back to the referring physician by way of shared medical record and/or written letter via US mail. HISTORY of PRESENT ILLNESS: Sully Enriquez is a 33 year old White premenopausal female who presents today accompanied by her friend, Maliha, regarding a recently diagnosed RIGHT breast fibroadenoma first identified on self exam in 06/2023. It has not changed in size since she first noticed it. She denies any nipple discharge, breast skin changes, breast pain, or nipple inversion. Reports bilateral breast tenderness. First felt a mass with right sided milky white nipple discharge in 06/2023. Took nipple piercing out of R side 2 weeks ago, noticed nipple was inverted which was new since before the mass so she put it back in. No current nipple inversion with the piercing in place or discharge. Here to discuss expectant management vs. Surgical excision. BREAST HISTORY: 06/2023 - Self palpated RIGHT breast mass. 06/25/23 ([facility]) - diagnostic bilateral mammogram/US - diffuse heterogenous density. In the right breast at 8:00 approximately 4 to 5 cm from the nipple, is a hypoechoic avascular area that measures 2.0 x 1.6 x 1.1 cm. In the right upper outer quadrant of the breast at 2.8 x 1.0 x 2.8 cm lymph node is seen. There is no cortical thickening. 07/07/23 ([facility] - US guided CNB 8:00 4-5 CMFN 2 x 1 x 1.7 cm mass with unspecified clip placement - fibrocystic change. Concordant. 08/07/23 ([facility]) - RIGHT breast US - 8:00 4-5 CMFN 2 x 0.9 x 1.3 cm mass. 9:00 9 CMFN, no US abnormality to correlate with area of pain. 09/08/23 ([facility]) - Right breast at 8 o'clock, 4-5 cm from nipple, ultrasound-guided core biopsy with coil clip placement: Fibroadenoma.Concordant. BREAST AND CERTIFIED MEDICAL CODER RELATED HISTORY: Prior biopsies: as above Prior surgeries: as above Implants: No Contraceptive use: Current: none Past: OCPs in 2011 at age 20 Exogenous hormone use: none Prior radiation: There is no history of Radiation Therapy. OB History T0 L0 SAB0 IAB0 Ectopic0 Multiple0 Live Births0 Bone Char Kiln Operator History LMP: Hysterectomy Age at Menarche: 12 Age at First : 14 Age at Menopause: Bone Char Kiln Operator History Comments: Sexual Activity: No sexual activity data on record; No partner data on record Contraception: No contraception data on record Age at first live :15 She did not breast feed her child. Age at menarche: 12 Gynecologic surgery: Hysterectomy d/t endometriosis in 2021. Bilateral salpingectomy in 2010. Ovaries are in situ. FAMILY HISTORY: FAMILY HISTORY Problem Relation Age of Onset Lung Cancer Father Heart Attack Father Osteoporosis Maternal Grandmother Cancer Maternal Grandmother IN NECK Breast Cancer Paternal Grandmother Ashkenazic Ancestry unknown. She has 2 sisters. History of Genetic Testing: No Patient denies any known personal or family history of Hemophilia, VonWillebrands Disease. Patient denies any known personal history of DVT, PE or coagulopathy. Grandma had a TIA in the setting of post-chemotherapy. 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 Lives at home with and children. Stays active by exercising with kids. PAST MEDICAL HISTORY:PAST MEDICAL HISTORY No date: Insomnia No date: Kidney stone Recurrent Kidney Stones and UTIs. Has PNES. PAST SURGICAL HISTORY: PAST SURGICAL HISTORY No date: BUNIONECTOMY, LAPIDUS-TYPE Comment: rt foot No date: BX OF BREAST; INCISIONAL Comment: RT BREAST 2X No date: PAST SURGICAL HISTORY OF Comment: Nephrostomy tube removed No date: PAST SURGICAL HISTORY OF Comment: hysterectomy still have ovaries No date: PAST SURGICAL HISTORY OF Comment: cyst on ovaries removed several time No date: PAST SURGICAL HISTORY OF Comment: kidney stones 2011: SALPINGECTOMY; Bilateral PROBLEM LIST:ACTIVE PROBLEM LIST Seizure (Hcc) Headaches ALLERGIES: ALLERGIES Allergen Reactions Ciprofloxacin U (more content not included)... Normal [facility] Kt 12-26-2023 AKUA Telephone (BRCRMN) ----- ZOESULLY ([id number]) 1990 F Date Time Provider Department 12/26/23 ADELE SUTTON During your visit today, we recorded the following information about you: Kobe Wallis 12/26/2023 3:25 PM Signed LOCALIZATION IMAGE REVIEW (Please do NOT submit until entire workup complete) (if > 3 reflectors to be placed in one breast, please review with radiologist) Sully M Zoe [id number] 1990 WORK- UP COMPLETE? Yes Order Placed Yes Right - Site 1 Location 8:00 4-5cm fn Clip Shape Coil Clip Clip Migration No Pathology FibroAdenoma Preferred Localization [email or web address] * If clip migrated, please review with radiologist This Form Has Been Completed By Kobe Wallis On Behalf Of Edgard Davila MD 12/29/2023 12:19 PM Signed I have reviewed and approved the localization plan. Images dated 09/08/2023 are annotated. Radiologist: MD Marco Mtz Tishka 01/07/2024 8:53 AM Signed ZAYDA patient service representative placement by BOTH (coil + unspecified) clips in RIGHT breast - fibroadenoma Allergies As of Date: 12/26/2023 Noted Allergy Reaction CIPROFLOXACIN 03/06/2021 16 - Unknown DICYCLOMINE 03/06/2021 16 - Unknown KETOROLAC 03/06/2021 16 - Unknown LORAZEPAM 03/06/2021 16 - Unknown NITROFURANTOIN 03/06/2021 16 - Unknown PENICILLINS 03/06/2021 16 - Unknown PREDNISONE 12/26/2023 5 - Intolerance REGLAN (METOCLOPRAMIDE) 03/06/2021 16 - Unknown ZITHROMAX (AZITHROMYCIN) 03/06/2021 16 - Unknown Date Reviewed: 12/26/2023 Reviewed by: Libertad Glass MA - Fully Assessed Reason for Visit: Breast Localization Request [Other] Prescriptions as of 01/07/2024 - tizanidine HCl (ZANAFLEX ORAL) Zanaflex - Phentermine HCl 37.5 mg tablet once daily. - ALPRAZolam (XANAX) 1 mg tablet Take 1 mg by mouth twice daily as needed. Problem List As Of Date 12/26/2023 Noted Resolved Seizure (HCC) [R56.9] 03/06/2021 Headaches [R51.9] 03/07/2021 Breast fibroadenoma, right [D24.1] 12/26/2023 Encounter Status:Closed by EDGARD COLE on 12/29/23 Normal [facility] Color of Urine by AutoOrdere d By: Mario Glasgow on 12-26-2023 Color (U) Light-yellow Yellow [facility] Comment on above: Performed By: #### A DDONUAPLUS, CUU #### [address] Dipstick and Microscopicon 0 12-26-2023 Bacteria,Urine Rare Normal None Seen [facility] Comment on above: Performed By: #### A DDONUAPLUS, CUU #### [address] Bilirubin,Urine Negative Normal Negative [facility] Comment on above: Performed By: #### A DDONUAPLUS, CUU #### [address] Budding Yeast,Urine 2+ High None Seen [facility] Comment on above: Result Comment: PERF ORMED BY: [place] [address] PATHOLOGIST STATIONARY ENGINEER LEV HERNÁNDEZ M.D. Performed By: #### A DDONUAPLUS, CUU #### [address] Glucose Ql (U) Normal Normal Normal [facility] Comment on above: Performed By: #### A DDONUAPLUS, CUU #### [address] Hyaline Casts,Urine None Normal 0-8 [facility] Comment on above: Performed By: #### A DDONUAPLUS, CUU #### [address] Mucus,Urine Rare Normal [facility] Comment on above: Performed By: #### A DDONUAPLUS, CUU #### [address] Nitrite,Urine Negative Normal Negative [facility] Comment on above: Performed By: #### A DDONUAPLUS, CUU #### [address] Occult Blood,Urine 1+ High Negative [facility] Comment on above: Result Comment: PERF ORMED BY: [place] [address] PATHOLOGIST STATIONARY ENGINEER LEV HERNÁNDEZ M.D. Performed By: #### A DDONUAPLUS, CUU #### [address] Protein,Urine Negative Normal Negative [facility] Comment on above: Performed By: #### A DDONUAPLUS, CUU #### [address] RBC,Urine 10-19 High 0-4 [facility] Comment on above: Performed By: #### A DDONUAPLUS, CUU #### [address] Specificy Sallis,Urine 1.011 Normal 1.001-1.030 [facility] Comment on above: Performed By: #### A DDONUAPLUS, CUU #### [address] Squamous Epithelial Cell,Urine 1-2 Normal 0-2 [facility] Comment on above: Performed By: #### A DDONUAPLUS, CUU #### [address] Urobilinogen,Urine Normal Normal Normal [facility] Comment on above: Performed By: #### A DDONUAPLUS, CUU #### [address] WBC CLUMP, Urine Many High None Seen [facility] Comment on above: Performed By: #### A DDONUAPLUS, CUU #### [facility] [address] WBC,Urine Innumerable High 0-4 [facility] Comment on above: Performed By: #### A DDONUAPLUS, CUU #### [facility] [address] Epithelial cells.squamous [# /area] in Urine sediment by Automated countOrdered By: Mario Glasgow on 12-26-2023 Epithelial cells.squamous Auto (Urine sed) [#/Area] 1-2 [HPF] 0-2 [facility] Erythrocytes [#/area] in Uri ne sediment by Automated countOrdered By: Mario Glasgow on 12-26-2023 RBC Auto (Urine sed) [#/Area] 10-19 [HPF] High 0-4 [facility] Glucose [Mass/volume] in Uri ne by Test stripOrdered By: Mario Glasgow on 12-26-2023 Glucose Test strip (U) [Mass/Vol] Normal mg/dL Normal [facility] HISTORY PHYSICALon HISTORY PHYSICAL HNO ID: [id number] Author: ADELE SUTTON MD Service: ? Author Type: Physician Type: H&P Filed: 12/26/2023 15:52 Note Text: [facility] [place] Department of General Surgery [facility] REASON for TODAY'S VISIT: Patient presents with: New Patient REFERRAL: Referring Provider: Franchesca Man PCP: Keli Strickland NP, FLAVORING OIL FILTERER My clinic note and plan will be communicated back to the referring physician by way of shared medical record and/or written letter via [place] mail. HISTORY of PRESENT ILLNESS: Sully Enriquez is a 33 year old White premenopausal female who presents today accompanied by her friend, Maliha, regarding a recently diagnosed RIGHT breast fibroadenoma first identified on self exam in 06/2023. It has not changed in size since she first noticed it. She denies any nipple discharge, breast skin changes, breast pain, or nipple inversion. Reports bilateral breast tenderness. First felt a mass with right sided milky white nipple discharge in 06/2023. Took nipple piercing out of R side 2 weeks ago, noticed nipple was inverted which was new since before the mass so she put it back in. No current nipple inversion with the piercing in place or discharge. Here to discuss expectant management vs. Surgical excision. BREAST HISTORY: 06/2023 - Self palpated RIGHT breast mass. 06/25/23 ([facility]) - diagnostic bilateral mammogram/US - diffuse heterogenous density. In the right breast at 8:00 approximately 4 to 5 cm from the nipple, is a hypoechoic avascular area that measures 2.0 x 1.6 x 1.1 cm. In the right upper outer quadrant of the breast at 2.8 x 1.0 x 2.8 cm lymph node is seen. There is no cortical thickening. 07/07/23 ([facility] - US guided CNB 8:00 4-5 CMFN 2 x 1 x 1.7 cm mass with unspecified clip placement - fibrocystic change. Concordant. 08/07/23 ([facility]) - RIGHT breast US - 8:00 4-5 CMFN 2 x 0.9 x 1.3 cm mass. 9:00 9 CMFN, no US abnormality to correlate with area of pain. 09/08/23 ([facility]) - Right breast at 8 o'clock, 4-5 cm from nipple, ultrasound-guided core biopsy with coil clip placement: Fibroadenoma.Concordant. BREAST AND CERTIFIED MEDICAL CODER RELATED HISTORY: Prior biopsies: as above Prior surgeries: as above Implants: No Contraceptive use: Current: none Past: OCPs in 2010 at age 20 Exogenous hormone use: none Prior radiation: There is no history of Radiation Therapy. OB History T0 L0 SAB0 IAB0 Ectopic0 Multiple0 Live Births0 Bone Char Kiln Operator History LMP: Hysterectomy Age at Menarche: 12 Age at First : 14 Age at Menopause: Bone Char Kiln Operator History Comments: Sexual Activity: No sexual activity data on record; No partner data on record Contraception: No contraception data on record Age at first live :15 She did not breast feed her child. Age at menarche: 12 Gynecologic surgery: Hysterectomy d/t endometriosis in 2021. Bilateral salpingectomy in 2010. Ovaries are in situ. FAMILY HISTORY: FAMILY HISTORY Problem Relation Age of Onset Lung Cancer Father Heart Attack Father Osteoporosis Maternal Grandmother Cancer Maternal Grandmother IN NECK Breast Cancer Paternal Grandmother Ashkenazic Ancestry unknown. She has 2 sisters. History of Genetic Testing: No Patient denies any known personal or family history of Hemophilia, VonWillebrands Disease. Patient denies any known personal history of DVT, PE or coagulopathy. Grandma had a TIA in the setting of post-chemotherapy. 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 Lives at home with and children. Stays active by exercising with kids. PAST MEDICAL HISTORY:PAST MEDICAL HISTORY No date: Insomnia No date: Kidney stone Recurrent Kidney Stones and UTIs. Has PNES. PAST SURGICAL HISTORY: PAST SURGICAL HISTORY No date: BUNIONECTOMY, LAPIDUS-TYPE Comment: rt foot No date: BX OF BREAST; INCISIONAL Comment: RT BREAST 2X No date: PAST SURGICAL HISTORY OF Comment: Nephrostomy tube removed No date: PAST SURGICAL HISTORY OF Comment: hysterectomy still have ovaries No date: PAST SURGICAL HISTORY OF Comment: cyst on ovaries removed several time No date: PAST SURGICAL HISTORY OF Comment: kidney stones 2011: SALPINGECTOMY; Bilateral PROBLEM LIST:ACTIVE PROBLEM LIST Seizure (Hcc) Headaches ALLERGIES: ALLERGIES Allergen Reactions Ciprofloxacin Unknown Dicyclomine Unknown Ketorolac Unknown Lorazepam Unknown Nitrofurantoin Unknown Penicillins Unknown Prednisone Intolerance Reglan [Metoclopram* Unknown Zithromax [Azithrom* Unknown CURRENT MEDICATIONS: tizanidine HCl (ZANAF (more content not included)... Normal [facility] Hemoglobin Test strip Ql (U) Ordered By: Mario Glasgow on 12-26-2023 Hemoglobin Ql (U) 1+ High Negative [facility] Hyaline casts [#/area] in Ur ine sediment by Automated countOrdered By: Mario Glasgow on 12-26-2023 Hyaline casts Auto (Urine sed) [#/Area] None [LPF] 0-8 [facility] Ketones [Presence] in Urine by Test stripOrdered By: Mario Glasgow on 12-26-2023 Ketones Ql (U) Negative Negative [facility] Comment on above: Performed By: #### A JOSSUE CUU #### [facility] [address] Laboratory - Chemistry and C hemistry - challengeon 12-26-2023 Bilirubin Ql (U) Negative [facility] Glucose (U) [Mass/Vol] [facility] Ketones Ql (U) Negative [facility] pH (U) 5.5 [pH] [facility] Specific gravity (U) [Rel density] 1.010 [facility] Urobilinogen (U) [Mass/Vol] 0.2 mg/dL [facility] Laboratory - Microbiology an d Antimicrobial susceptibilityOrdered By: Mario Glasgow on 12-26-2023 Bacteria identified Cx Nom (U) Escherichia coli Abnormal [facility] Laboratory - Specimen inform ationon 12-26-2023 Appearance (U) cloudy [facility] Color (U) yellow [facility] Laboratory - Urinalysison Leukocyte esterase Test strip Ql (U) small [facility] Nitrite Ql (U) Negative [facility] Protein Ql (U) Negative [facility] Leukocyte clumps [Presence] in Urine by AutomatedOrdered By: Mario Glasgow on 12-26-2023 Leukocyte clumps Auto Ql (U) Many [LPF] High None Seen [facility] Leukocyte esterase [Presence ] in Urine by Test stripOrdered By: Mario Glasgow on 12-26-2023 Leukocyte esterase Test strip Ql (U) 4+ High Negative [facility] Comment on above: Performed By: #### A JOSSUE CUU #### [facility] [address] Leukocytes [#/area] in Urine sediment by Automated countOrdered By: Mario Glasgow on 12-26-2023 WBC Auto (Urine sed) [#/Area] Innumerable [HPF] High 0-4 [facility] Mucus [Presence] in Urine by AutomatedOrdered By: Mario Glasgow on 12-26-2023 Mucus Auto Ql (U) Rare [LPF] [facility] Nitrite Test strip Ql (U)Ord ered By: Mario Glasgow on 12-26-2023 Nitrite Ql (U) Negative Negative [facility] No Panel Informationon 12-25 Urine Occult Blood Negative [facility] Protein Test strip (U) [Mass /Vol]Ordered By: aMrio Glasgow on 12-26-2023 Protein (U) [Mass/Vol] Negative Negative [facility] Specific gravity Test strip (U) [Rel density]Ordered By: Mario Glasgow on 12-26-2023 Specific gravity (U) [Rel density] 1.011 1.001-1.030 [facility] Urine Cultureon 12-26-2023 Bacteria identified Cx Nom (U) ORGANISM: Escherichia coli (O:ESCCOL) [place] Count 75,000 Aerobic AUBREY Charge (NMIC56) SUSCEPTIBILITY ORGANISM: O:ESCCOL ANTIBIOTIC INTERPRETATION AUBREY Amikacin S <16 Amoxacillin/K Clavulanate S <8 Ampicillin S <8 Ampicillin/Sulbactam S <4 Aztreonam S <4 Cefazolin S <2 Cefepime S <2 Ceftazidime S <1 Ceftazidime/Avibactam S <4 Ceftolozane/Tazobactam S <2 Ceftriaxone S <1 Cefuroxime S <4 Ciprofloxacin R >2 Ertapenem S <0.5 Gentamicin S <2 Levofloxacin R >4 Meropenem S <1 Meropenem/Vaborbactam S <2 Nitrofurantoin S <32 Piperacillin/Tazobactam S <8 Tetracycline S <4 Tigecycline S <2 Tobramycin S <2 Trimethoprim/Sulfamethoxa zole S <0.5 S = SUSCEPTIBLE I = INTERMEDIATE R = RESISTANT BLANK = DATA NOT AVAILABLE, OR DRUG NOT ADVISABLE OR TESTED R* = RESISTANCE DUE TO EXTENDED SPECTRUM BETA-LACTAMASES ESBL = EXTENDED SPECTRUM BETA-LACTAMASE TFG = THYMIDINE-DEPENDENT STRAIN ENRIQUE = BETA-LACTAMASE POSITIVE IB = INDUCIBLE BETA-LACTAMASE. APPEARS IN PLACE OF 'S' WITH SPECIES KNOWN TO POSSESS INDUCIBLE BETA-LACTAMASES. POTENTIALLY THEY MAY BECOME RESISTANT TO ALL B-LACTAM DRUGS. PERFORMED BY: [place] [address] PATHOLOGIST STATIONARY ENGINEER LEV HERNÁNDEZ M.D. Normal [facility] Comment on above: Performed By: #### A JOSSUE, CUU ####[facility] [id number] Urine appearanceOrdered By: Mario Glasgow on 12-26-2023 Appearance (U) Cloudy Abnormal Clear [facility] Comment on above: Performed By: #### A PHILOMENA MARCUMU #### [facility] [address] Urobilinogen Test strip (U) [Mass/Vol]Ordered By: Mario Glasgow on 12-26-2023 Urobilinogen (U) [Mass/Vol] Normal mg/dL Normal [facility] Yeast.budding [Presence] in Urine by Computer assisted methodOrdered By: Mario Glasgow on 12-26-2023 Yeast.budding Computer assisted Ql (U) 2+ [HPF] High None Seen [facility] pH of Urine by Test stripOrd ered By: Mario Glasgow on 12-26-2023 pH (U) 6.0 [pH] 5.0-9.0 [facility] Comment on above: Performed By: #### A PHILOMENA MARCUMU #### [facility] [address] Basophils Auto (Bld) [#/Vol] on 12-17-2023 Basophils (Bld) [#/Vol] 0.0 10 3/uL 0.0-0.1 [facility] Basophils/100 WBC Auto (Bld) on 12-17-2023 Basophils/100 WBC (Bld) 0.4 % 0.2-2.0 [facility] CONSULTon 12-17-2023 CONSULT SUBJECTIVE: Chief complaint: Back pain, urinary incontinence. History of present illness: Consultation referred by ED attending Dr. Hilton due to concern for cauda equina syndrome. Reports chronic intermittent bilateral hip pain for past 13 years that started after of youngest child. Does also note history of arthritis for which she uses a heating pad and takes tizanidine at bedtime. This pain is typically around her mid back. However, states that for the past 2 weeks, she has been having pain in her low back that is worse with standing and sitting and somewhat better with rest and with left lateral decubitus position. No particular precipitating event identified. No variation with time of day. Reports that she is unable to stand fully erect due to pain. Pain was particularly severe yesterday and she spent most of the day in bed. She reports she had 2 or 3 episodes of urinary incontinence yesterday. Did not have a sensation that she needed to urinate. She denies saddle anesthesia. She does report some numbnessand tingling in her right toes. She does feel that her balance has beenoff, though she denies falls. She denies bowel incontinence or bowel changes. She has been having some intermittent nausea and vomiting for the past few weeks, which she attributes to her pain. She denies abdominal pain, burning with urination, dysuria. She has been doing physical therapy and seeing a chiropractor for her back pain. She had 2 trigger point injections yesterday. She has also tried tizanidine and Tylenol without lasting or substantial relief. She has not had steroids. Reports allergy to Toradol and tries to avoid NSAIDs due to history of frequent urinary tract infections as well as kidney stones. Denies neck pain, arm pain or weakness, paresthesia of upper extremities. Review of systems: Constitutional: Denies fever, chills. Genitourinary: Reports episodes of urinary incontinence. Denies burning and dysuria. Gastrointestinal: Denies constipation, diarrhea, bowel incontinence. Reports nausea, vomiting. Neurologic: Denies weakness, reports numbness, tingling, unsteady gait. Musculoskeletal: Denies neck pain, reports back pain. Past Medical History: Diagnosis Date Anxiety Frequent UTI Kidney stone POTS (postural orthostatic tachycardia syndrome) Pyelonephritis Seizures (CMS/HCC) SATNAM Past Surgical History: Procedure Laterality Date BREAST BIOPSY BUNIONECTOMY CERVICAL BIOPSY W/ LOOP ELECTRODE EXCISION COLONOSCOPY CYSTOSCOPY ENDOMETRIAL ABLATION HYSTERECTOMY LITHOTRIPSY NEPHROSTOMY OVARIAN CYST REMOVAL SALPINGECTOMY Family History Problem Relation Name Age of Onset Lung cancer Father COPD Father Other (AAA) Father Schizophrenia Brother Breast cancer Paternal Grandmother OBJECTIVE: Medications: @MEDSINGROUPER@ No current facility-administered medications for this encounter. Current Outpatient Medications: ALPRAZolam (Xanax) 2 mg tablet, Take 2 mg by mouth if needed in the morning and at bedtime., Disp: , Rfl: acetaminophen-codeine (Tylenol w/ Codeine #3) 300-30 mg tablet, TAKE 1 TABLET BY MOUTH EVERY 6 HOURS NEEDED FOR PAIN FOR 3 DAYS, Disp: , Rfl: methylPREDNISolone (Medrol Dospak) 4 mg tablets, Follow schedule on package instructions, Disp: 21 tablet, Rfl: 0 phentermine (Adipex-P) 37.5 mg tablet, TAKE ONE TABLET BY MOUTH ONCE DAILY FOR 30 DAYS, Disp: , Rfl: tiZANidine (Zanaflex) 4 mg tablet, TAKE 1 TABLET BY MOUTH EVERY 8 HOURS NEEDED FOR BACK SPAMS, Disp: , Rfl: valACYclovir (Valtrex) 1 gram tablet, TAKE 1 TABLET BY MOUTH TWICE A DAY NEEDED FOR COLD SORES FOR 10 DAYS, Disp: , Rfl: Allergies: Allergies Allergen Reactions Ativan [Lorazepam] Other Gets mean Macrobid [Nitrofurantoin Monohyd/M-Cryst] Hives Penicillins Other unknown Reglan [Metoclopramide Hcl] Other Really mean Toradol [Ketorolac] Other Gets mean Zithromax [Azithromycin] Hives Exam: Exam performed and reviewed, changes as below. Vitals reviewed: Temp: [36.7 ???C (98.1 ???F)] 36.7 ???C (98.1 ???F) Heart Rate: [72] 72 Resp: [16] 16 BP: (97-117)/(58-91) 97/65 I/O last 3 completed shifts: In: - (0 mL/kg) Out: 70 (0.7 mL/kg) [Urine:70 (0 mL/kg/hr)] Weight: 103.4 kg I/O this shift: In: 20 [IV Piggyback:20] Out: - Constitutional: In no apparent distress. Chest: Chest expansion symmetrical. Respirations regular and nonlabored. Extremities without edema. Skin warm and dry without pallor. Mottling of mid to low back-states related to heating pad. Neuro: GCS 15/15. Attention and memory intact. No dysarthria or aphasia. Cranial Nerves: Conjugate gaze. PERRLA 7 mm, brisk. EOMI. No nystagmus. Facial sensation intact V1, V2, V3 bilaterally. Facial expression symmetrical bilaterally. Hearing intact to conversation. Uvula midline and palate elevates symmetrically. Trapezii symmetrical bilaterally. Tongue midline. Coordination: Finge (more content not included)... Normal [facility] EDNURSon 12-17-2023 EDNURS Call light, gown, wa rm blanket, pillow and pad provided. Spouse at bedside. Pts back appears mottled, spouse says it is from heating pad. Lead confirms Normal [facility] EDNURS Mode of arrival (squ ad #, walk in, police, etc): walk in w spouse Chief complaint(s): back pain, nausea,urinary incontinence Arrival Note (brief scenario, treatment DIMENSIONAL INSPECTOR, etc): pt by private auto from [place] for low back pain continuous with worsening past 2 weeks no injury. 8/10 and sharp. Urinary incontinence started yesterday along with nausea and 2 episodes of vomiting. Pt denies numbness or tingling. Took zanaflex at home which helped her sleep. Had T3 at [place] which helped with the pain. Arrives of 20 g lock in left arm. Pt comes with paperwork and lab results. Pt denies having this pain previously Normal [facility] EDPROVon 12-17-2023 EDPROV HPI Chief Complaint Patient presents with ??? Back Pain X 2 weeks ??? Nausea With vomit x 2. Onset was yesterday. ??? Urinary Incontinence Onset yesterday Pt transferred here by EMS from [facility] accepted by ETHAN Olivas who is on for spine. The concern is for cauda equina. Pt with evaluation for back pain. Pt with evaluation at [place] 1-2 weeks prior. Pt with chiropractor care and recived injections into low back. Pt with pain that is worse. Pt with incontinence of urine reportedly. Pt with hx being on tizanidine for pain as well as tylenol and tramadol. Pt with PMH POTS, renal stones, migraines, anxiety, depression and seizures. Pt with hx heprhostomy in past. Pt with hx hyst in past. 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 CBC normal. ESR normal at 17. Pt with chemistry that is normal. Pt with crp normal. Discussion with pt and male visitor shows that pt has had problems with arthritis in her back in the past. Pt has had PT. Sleeps on a heating pad most nights. Most recently had PT and had an injection by chiropractor yesterday. Pt with incfreased pain after that and had 2 episodes of urinary incontinence, one while in the shower after she thought she emptied her bladder before getting in. Pt with no n/t/w. Pt with no radiation down her legs. Pt able to ambulate. Pt with no other recent spinal injections. Pt had xray imaging at ED and was told that had osteophytes. Pt didn't have imaging at chiropractor. Maggy Coma Scale Score: 15 Patient History Past Medical History: Diagnosis Date ??? Seizures (CMS/HCC) No past surgical history on file. No family history on file. Social History Tobacco Use ??? Smoking status: Not on file ??? Smokeless tobacco: Not on file Substance Use Topics ??? Alcohol use: Not on file ??? Drug use: Not on file Review of Systems Review of Systems Physical Exam ED Triage Vitals Temp Heart Rate Resp BP 12/17/23 0240 12/17/23 0240 12/17/23 0238 12/17/23 0240 36.7 ???C (98.1 ???F) 72 16 109/81 SpO2 Temp Source Heart Rate Source Patient Position 12/17/23 0240 12/17/23 0238 12/17/23 0238 12/17/23 0238 99 % Oral Monitor Sitting BP Location FiO2 (%) 12/17/23 0238 -- Right arm Physical Exam Constitutional: General: She is not in acute distress. Appearance: Normal appearance. She is obese. She is not ill-appearing or toxic-appearing. Cardiovascular: Rate and Rhythm: Normal rate and regular rhythm. Pulses: Normal pulses. Heart sounds: Normal heart sounds. Pulmonary: Effort: Pulmonary effort is normal. Breath sounds: Normal breath sounds. Abdominal: General: Abdomen is flat. Palpations: Abdomen is soft. Musculoskeletal: General: No swelling or tenderness. Right lower leg: No edema. Left lower leg: No edema. Comments: Pt with reticular, netlike, diffuse hyperpigmentation noted to mid thoracic to entire lumbar spine. This appears to be consistent with heat induced erythema ab igne. Skin: General: Skin is warm and dry. Neurological: General: No focal deficit present. Mental Status: She is alert and oriented to person, place, and time. Sensory: No sensory deficit. Motor: No weakness. Psychiatric: Mood and Affect: Mood normal. Procedures ED Course & MDM ED Course as of 12/25/23 1039 FriDec 17, 2023 0350 I was in to explain and perform rectal. Pt demanded that RN, student and her visitor leave the room. Pt with normal spincter tone and normal saddle sensation to touch. Pt aware of plan of care/testing this am. [CS] [address] Olivas about this consult. He requests an MRI for this pt. I spoke with radiologist Dr Sanchez at [facility] to get approval for MRI to get called in. I spoke with technology lab teacher to get range technician called in for this imaging. [CS] 0456 Pt complaining about pain and nausea. Rn to reconcile meds. Pt with allergy to toradol. Pt with multiple narcotic and antispasm meds on home list. [CS] 0552 PT back from MRI. Pt with norco at home that hasn't taken and has nausea again now. Pt got 4 mg zofran at outside hospital. Will repeat this and then dose norco while waiting on MRI report. [CS] 0651 Pt now wanting to leave AMA. Prelim for MRI in for this pt. I spoke with Dr Olivas about this pt. He asks that I talk with pt about being seen by his PA/FLAVORING OIL FILTERER Jyotsna in about 10 minutes and he is on way to hospital and will review MRI imaging. [CS] 4854 I was back to talk with pt and visitor about my conversation with Dr Olivas. Male reports taht I thought that we were just coming here for the MRI and they were going to read it back in [place] . I explained process of transfer and step up in level of care not only for testing but specialty service. They are deciding if want to stay. I offered po pain meds and pt declined. [CS] [address] Pt signed out to Dr Trevino at change of shift. [CS] ED Course User Index [CS] Anastasia Hilton MD Diagnoses as of 12/25/23 1039 Acute ex (more content not included)... Normal [facility] Eosinophils/100 WBC Auto (Bl d)on 12-17-2023 Eosinophils/100 WBC (Bld) 1.2 % 0.9-7.0 [facility] Erythrocyte distribution wid th Auto (RBC) [Ratio]on 12-17-2023 Erythrocyte distribution width (RBC) [Ratio] 11.9 % 11.0-15.0 [facility] Estimated glomerular filtrat ion rate (GFR) non- Americanon 12-17-2023 GFR/1.73 sq M.predicted among non-blacks MDRD (S/P/Bld) [Vol rate/Area] mL/min/{1.73_m2} >=60 [facility] Hematocrit Auto (Bld) [Volum e fraction]on 12-17-2023 Hematocrit (Bld) [Volume fraction] 42.3 % 36.0-48.0 [facility] Hemoglobin [Mass/volume] in Bloodon 12-17-2023 Hemoglobin (Bld) [Mass/Vol] 14.4 g/dL 12.0-16.0 [facility] Laboratory - Chemistry and C hemistry - challengeon 12-17-2023 Calcium [Mass/Vol] 8.9 mg/dL 8.5-10.1 [facility] Chloride [Moles/Vol] 103 mmol/L 98-107 [facility] CO2 [Moles/Vol] 26.5 mmol/L 21.0-32.0 [facility] Creatinine [Mass/Vol] 0.94 mg/dL 0.55-1.02 [facility] GFR/1.73 sq M.predicted MDRD (S/P/Bld) [Vol rate/Area] mL/min/{1.73_m2} >=60 [facility] Glucose [Mass/Vol] 95 mg/dL 74-106 [facility] Potassium [Moles/Vol] 3.5 mmol/L 3.5-5.1 [facility] Sodium [Moles/Vol] 139 mmol/L 136-145 [facility] Urea nitrogen [Mass/Vol] 9.0 mg/dL 7.0-18.0 [facility] Urea nitrogen/Creatinine [Mass ratio] 9.6 mg/mg [facility] Laboratory - Hematology and Cell countson 12-17-2023 ESR (Bld) [Velocity] 17 mm/h <=20 [facility] Immature granulocytes/100 WBC (Bld) 0.3 % 0.0-0.5 [facility] Leukocytes [#/volume] correc armaan for nucleated erythrocytes in Blood by Automated counon 12-17-2023 WBC corrected for nucl RBC Auto (Bld) [#/Vol] 6.7 10 3/uL 4.0-11.0 [facility] Lymphocytes Auto (Bld) [#/Vo l]on 12-17-2023 Lymphocytes (Bld) [#/Vol] 2.7 10 3/uL 1.2-3.8 [facility] Lymphocytes/100 WBC Auto (Bl d)on 12-17-2023 Lymphocytes/100 WBC (Bld) 40.7 % 20.5-60.0 [facility] MCH Auto (RBC) [Entitic mass ]on 12-17-2023 MCH (RBC) [Entitic mass] 32.4 pg 26.7-34.0 [facility] MCHC Auto (RBC) [Mass/Vol]on 12-17-2023 MCHC (RBC) [Mass/Vol] 34.0 g/dL 29.9-35.2 [facility] MCV Auto (RBC) [Entitic vol] on 12-17-2023 MCV (RBC) [Entitic vol] 95.3 fL 81.0-99.0 [facility] MR LUMBAR SPINE W AND WO CON TRASTon 12-17-2023 MR LUMBAR SPINE W AND WO CONTRAST MR LUMBAR SPINE W AND WO CONTRAST 12/17/2023 4:52 AM CLINICAL INDICATIONS: Low back pain and left leg pain following injections from chiropractor COMPARISON: None. FINDINGS: Multiplanar, multisequence imaging of the lumbar spine was obtained before and after the administration of 20 mL ProHance. Numbering assumes the presence of 5 nonrib-bearing lumbar-type vertebral bodies. Lumbar alignment, vertebral body heights, and intervertebral disc spaces appear well-maintained. No acute fracture or listhesis. No neuroforaminal narrowing or spinal canal stenosis. No significant disc bulge or facet arthropathy. Conus terminates at approximately T12-L1. No intrinsic cord signal abnormality. IMPRESSION: *No acute abnormality specifically, no evidence of nerve root compression or cauda equina. Approved by:Johnny Billings12/17/2023 5:51 AM. I, Robert Rivera MD,have reviewed the image(s) and agree with the findings in this report. Electronically signed: Robert Rivera MD. Normal [facility] Monocytes Auto (Bld) [#/Vol] on 12-17-2023 Monocytes (Bld) [#/Vol] 0.5 10 3/uL 0.3-0.8 [facility] Monocytes/100 WBC Auto (Bld) on 12-17-2023 Monocytes/100 WBC (Bld) 7.2 % 1.7-12.0 [facility] Neutrophils Auto (Bld) [#/Vo l]on 12-17-2023 Neutrophils (Bld) [#/Vol] 3.4 10 3/uL 1.4-6.5 [facility] Neutrophils/100 WBC Auto (Bl d)on 12-17-2023 Neutrophils/100 WBC (Bld) 50.2 % 43.0-75.0 [facility] No Panel Informationon 12-16 C-Reactive Protein, Quantitative <0.50 mg/dL <=0.50 [facility] Eosinophils # (Auto) 0.1 10 3/uL 0.0-0.7 [facility] Immature Granulocyte # (Auto) 0.02 10 3/uL 0.00-0.03 [facility] Platelet mean volume Auto (B ld) [Entitic vol]on 12-17-2023 Platelet mean volume (Bld) [Entitic vol] 10.7 fL 9.5-13.5 [facility] Platelets Auto (Bld) [#/Vol] on 12-17-2023 Platelets (Bld) [#/Vol] 218 10 3/uL 150-450 [facility] RBC Auto (Bld) [#/Vol]on RBC (Bld) [#/Vol] 4.44 10 6/uL 4.20-5.40 [facility] Serum or plasma anion gap de terminationon 12-17-2023 Anion gap [Moles/Vol] 13.0 mmol/L [facility] URINALYSIS WITH REFLEX CULTU REon 12-17-2023 BILIRUBIN, TOTAL PRESENCE IN URINE Negative Normal Negative [facility] Comment on above: Order Comment: Micro scopics not performed on urines with negative chemical reactions unless requested on original order. Performed By: #### L [id number] #### [facility] (BEAKER) [address] [place] [address] Clarity (U) Slightly Cloudy Abnormal Clear [facility] Comment on above: Order Comment: Micro scopics not performed on urines with negative chemical reactions unless requested on original order. Performed By: #### L [id number] #### [facility] ([facility]) [address] [place] [address] Color (U) Yellow Normal Yellow [facility] Comment on above: Order Comment: Micro scopics not performed on urines with negative chemical reactions unless requested on original order. Performed By: #### L [id number] #### [facility] ([facility]) [address] [place] [address] Glucose (U) [Mass/Vol] Negative Normal Negative [facility] Comment on above: Order Comment: Micro scopics not performed on urines with negative chemical reactions unless requested on original order. Performed By: #### L [id number] #### [facility] ([facility]) [address] [place] [address] HEMOGLOBIN PRESENCE IN URINE Negative Normal Negative [facility] Comment on above: Order Comment: Micro scopics not performed on urines with negative chemical reactions unless requested on original order. Performed By: #### L [id number] #### [facility] ([facility]) [address] [place] [address] Ketones Ql (U) Negative Normal Negative [facility] Comment on above: Order Comment: Micro scopics not performed on urines with negative chemical reactions unless requested on original order. Performed By: #### L [id number] #### [facility] ([facility]) [address] [place] [address] LEUKOCYTE ESTERASE PRESENCE IN URINE BY TEST STRIP Negative Normal Negative [facility] Comment on above: Order Comment: Micro scopics not performed on urines with negative chemical reactions unless requested on original order. Performed By: #### L [id number] #### [facility] ([facility]) [address] [place] [address] NITRITE PRESENCE IN URINE Negative Normal Negative [facility] Comment on above: Order Comment: Micro scopics not performed on urines with negative chemical reactions unless requested on original order. Performed By: #### L [id number] #### [facility] ([facility]) [address] [place] [address] pH (U) 5.0 [pH] Normal 5.0-8.0 [facility] Comment on above: Order Comment: Micro scopics not performed on urines with negative chemical reactions unless requested on original order. Performed By: #### L [id number] #### [facility] ([facility]) [address] [place] [address] Protein (U) [Mass/Vol] Negative Normal Negative [facility] Comment on above: Order Comment: Micro scopics not performed on urines with negative chemical reactions unless requested on original order. Performed By: #### L [id number] #### [facility] ([facility]) [address] [place] [address] Specific gravity (U) [Rel density] 1.016 Normal 1.015-1.020 [facility] Comment on above: Order Comment: Micro scopics not performed on urines with negative chemical reactions unless requested on original order. 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 Problem List As Of Date 09/12/2023 Noted Resolved Seizure (HCC) [R56.9] 03/06/2021 Headaches [R51.9] 03/07/2021 Encounter Status:Closed by FRANCHESCA MAN on 09/12/23 [facility] 09-11-2023 CNPN Telephone (BRCRMN) ----- SULLY ENRIQUEZ ([id number]) 1990 F Date Time Provider Department 09/11/23 [facility]ESCA [facility] During your visit today, we recorded the following information about you: Franchesca Man, PAMonikaC 09/11/2023 3:26 PM Signed Called pt to [...] Encounter Status:[facility] ZOES[facility]Y ([id number]) 1990 F Date Time Provider Department 09/11/23 LOU MILLER During your visit today, we recorded the [...] Status:Closed by LOU MILLER on 09/11/23 Normal [facility] DBT Breast - right diagnosti c for implanton 09-08-2023 * * *Final Report* * * DATE OF EXAM: Sep 08 2023 2:52PM LISETTEW 0629 - SAJI FORRESTO RT / PROCEDURE REASON: multiple diagnoses * * * * Physician Interpretation * * * * RESULT: #[id number] - SAJI LARA W DOMINIC RT #[id number] - [facility] US BIOPSY BREAST RT ULTRASOUND [...] Almanzar performed the entire procedure without an child life assistant. Audible Time Out Time: 1420 Procedure [...] for pathological analysis. DIVISION OF RADIOLOGY Provider, Alexa Cox - 09/08/2023 * * *Final Report* * * DATE OF EXAM: Sep 08 2023 2:52PM MCMykel 0629 - [facility] MARCO Hogue DOMINIC RT / PROCEDURE REASON: multiple diagnoses * * * * Physician Interpretation * * * * RESULT: #[id number] - [facility] MARCO W DOMINIC RT #[id number] - [facility] US BIOPSY BREAST RT ULTRASOUND [...] Almanzar performed the entire procedure without an child life assistant. Audible Time Out Time: 1420 Procedure [...] become available. Lea Almanzar M.D., jr/aracely:09/08/2023 16:24:26 Vat House Supervisor(s): RT Mane(R)(M), [facility] [place] Multiple national specialty organizations have released breast cancer screening guidelines for women at average risk for developing breast cancer - guidelines that are based on both evidence and opinion, yet differ on when to start and how often to screen for breast cancer. With representation from Breast Imaging, Internal Medicine, Women's Health, Family Medicine, and Medical/Surgical Oncology, the [facility] has carefully reviewed the data and [...] their providers when to stop screening mammograms. Director Of Digital Technology: Aracely Transcribe Date/Time: Sep 08 2023 2:52P Dictated by : LEA ALMANZAR MD This examination was interpreted and the report reviewed and electronically signed by: LEA ALMANZAR MD on Sep 08 2023 4:24PM [facility] SAJI ALFARO RTon 024 SAJI ALFARO RT * * *Final Report* * * * * * SEE BOTTOM OF REPORT FOR ADDENDED TEXT * * * DATE OF EXAM: Sep 08 2023 2:52PM MCW 0629 - SAJI ALFARO RT / PROCEDURE REASON: multiple diagnoses * * * * Physician Interpretation * * * * RESULT: FINAL REPORT #[id number] - SAJI Hogue DOMINIC RT #[id number] - [facility] US BIOPSY BREAST RT ULTRASOUND [...] Almanzar performed the entire procedure without an child life assistant. Audible Time Out Time: 1420 Procedure [...] surgical consultation. Lea Almanzar M.D., jr/aracely:09/11/2023 14:32:49 Vat House Supervisor(s): RT Mane(R)(M), [facility] [place] Multiple national specialty organizations have released breast cancer screening guidelines for women at average risk for developing breast cancer - guidelines that are based on both evidence and opinion, yet differ on when to start and how often to screen for breast cancer. With representation from Breast Imaging, Internal Medicine, Women's Health, Family Medicine, and Medical/Surgical Oncology, the [facility] has carefully reviewed the data and [...] their providers when to stop screening mammograms. Director Of Digital Technology: (more content not included)... Normal [facility] US BIOPSY BREAST RTon [facility] US BIOPSY BREAST RT * * *Final Repor t* * * * * * SEE BOTTOM OF REPORT FOR ADDENDED TEXT * * * DATE OF EXAM: Sep 08 2023 2:52PM FLASH 0598 - [facility] US BIOPSY BREAST RT / PROCEDURE REASON: multiple diagnoses * * * * Physician Interpretation * * * * RESULT: FINAL REPORT #[id number] - [facility] MARCO W DOMINIC RT #[id number] - [facility] US BIOPSY BREAST RT ULTRASOUND [...] Almanzar performed the entire procedure without an child life assistant. Audible Time Out Time: 1420 Procedure [...] surgical consultation. Lea Almanzar M.D., jr/aracely:09/11/2023 14:32:49 Vat House Supervisor(s): RT Mane(R)(M), [facility] [place] Multiple national specialty organizations have released breast cancer screening guidelines for women at average risk for developing breast cancer - guidelines that are based on both evidence and opinion, yet differ on when to start and how often to screen for breast cancer. With representation from Breast Imaging, Internal Medicine, Women's Health, Family Medicine, and Medical/Surgical Oncology, the [facility] has carefully reviewed the data and [...] mammograms. Transcriptio (more content not included)... Normal [facility] No Panel Informationon 09-07 IMPRESSION: ULTRASOU ND GUIDED BIOPSY Ultrasound guided biopsy of the 2 cm mass in the right breast at 8 o'clock 4 cm from the nipple with placement of a clip was successful with no apparent post procedure complications. Waiting for pathology results. A final report will be issued when these become available. Lea Almanzar M.D., jr/aracely:09/08/2023 16:24:26 Vat House Supervisor(s): HAWA Gilliam)(M), [facility] [place] Multiple national specialty organizations have released breast cancer screening guidelines for women at average risk for developing breast cancer - guidelines that are based on both evidence and opinion, yet differ on when to start and how often to screen for breast cancer. With representation from Breast Imaging, Internal Medicine, Women's Health, Family Medicine, and Medical/Surgical Oncology, the [facility] has carefully reviewed the data and [...] their providers when to stop screening mammograms. Director Of Digital Technology: Aracely Transcribe Date/Time: Sep 08 2023 2:52P Dictated by : LEA ALMANZAR MD This examination was interpreted and the report reviewed and electronically signed by: LEA ALMANZAR MD on Sep 08 2023 4:24PM [facility] DIVISION OF RADIOLOGY Radiology Study observation (narrative) [facility] Panel InformationOrdered By: Ccf Provider on 09-08-2023 [facility] PT EDon 09-08-2023 PT ED HNO ID: [id number] Author: MARITZA RODNEY RT(Jd) Service: ? Author Type: Technologist Type: Patient [...] MATERIAL: Homegoing instructions REFERRAL (RECOMMENDATION): None Normal [facility] SURGICAL PATHOLOGYon 024 CASE REPORT Normal [facility] Comment on above: Order Comment: Speci men Type: TISSUE SPECIMENOrdering Facility: [facility] Address: [address] [place] [address] Result Comment: Surg ical Pathology Report Case: [id number] Authorizing Provider: Lea Almanzar MD Collected: 09/08/2023 02:04 PM Ordering Location: Mammography Received: 09/08/2023 07:51 PM Pathologist: Pat Silveira MD Specimen: Breast, Right, Core Biopsy, 8:00 4-5cmfn 2cm mass ultrasound biopsy with hydromark open coil clip Performed By: #### S ####[facility]ORY[facility] [id number] [address] LABCLIA [id number] 12 [address] [address] FINAL DIAGNOSIS Normal [facility] Comment on above: Order Comment: Speci men Type: TISSUE SPECIMENOrdering Facility: [facility] Address: [address] [place] [address] Result Comment: A. R ight breast at 8 o'clock, 4-5 cm from nipple, ultrasound-guided core biopsy with coil clip placement: - Fibroadenoma. Performed By: #### S ####[facility] [id number] [address] LABCLIA [id number] [address] [place] FINAL PERFORMING LAB Normal [facility] Comment on above: Order Comment: Speci men Type: TISSUE SPECIMENOrdering Facility: [facility] Address: [address] [place] [address] Result Comment: Diag nostic interpretation performed at [facility], [address] [place] [address] CLIA# [id number] Professor Of Art History: Columba Villasenor M.D. Performed By: #### S ####[facility] [id number] [address] LABIA [id number] [address] [place] GROSS DESCRIPTION Normal [facility] Comment on above: Order Comment: Speci men Type: TISSUE SPECIMENOrdering Facility: [facility] Address: [address] [place] [address] Result Comment: A. B reast, Right, Core [...] in one cassette. Performed By: #### S ####[facility] [id number] [address] LABIA [id number] [place] [address] [place] US Guidance for biopsy of Br east - righton 09-08-2023 * * *Final Report* * * DATE OF EXAM: Sep 08 2023 2:52PM Mykel 0598 - [facility] US BIOPSY BREAST RT / PROCEDURE REASON: multiple diagnoses * * * * Physician Interpretation * * * * RESULT: #[id number] - [facility] DIAG W DOMINIC RT #[id number] - [facility] US BIOPSY BREAST RT ULTRASOUND [...] Almanzar performed the entire procedure without an child life assistant. Audible Time Out Time: 1420 Procedure [...] for pathological analysis. DIVISION OF RADIOLOGY Provider, [facility] - 09/08/2023 * * *Final Report* * * DATE OF EXAM: Sep 08 2023 2:52PM [facility] 0598 - [facility] US BIOPSY BREAST RT / PROCEDURE REASON: multiple diagnoses * * * * Physician Interpretation * * * * RESULT: #[id number] - [facility] MARCO ALFARO RT #[id number] - [facility] US BIOPSY BREAST RT ULTRASOUND [...] Almanzar performed the entire procedure without an child life assistant. Audible Time Out Time: 1420 Procedure [...] location, four cores were obtained using a [employer] biopsy device. A [employer] open coil clip [...] become available. Lea Almanzar M.D., jr/aracely:09/08/2023 16:24:26 [facility] Supervisor(s): RT Mane(R)(M), [facility] [place] Multiple national specialty organizations have released breast cancer screening guidelines for women at average risk for developing breast cancer - guidelines that are based on both evidence and opinion, yet differ on when to start and how often to screen for breast cancer. With representation from Breast Imaging, Internal Medicine, Women's Health, Family Medicine, and Medical/Surgical Oncology, the [facility] has carefully reviewed the data and [...] their providers when to stop screening mammograms. Director Of Digital Technology: Aracely Transcribe Date/Time: Sep 08 2023 2:52P Dictated by : LEA ALMANZAR MD This examination was interpreted and the report reviewed and electronically signed by: LEA ALMANZAR MD on Sep 08 2023 4:24PM EST [facility] Laboratory - Chemistry and C hemistry - challengeon 09-02-2023 Free T4 [Mass/Vol] 0.98 ng/dL 0.76-1.46 [facility] TSH Qn 3.388 m[IU]/L 0.358-3.740 [facility] No Panel Informationon 09-01 Free Triiodothyronine 2.79 pg/mL 2.18-3.98 [facility] CNPNon 08-11-2023 CNPN Telephone (BRCRMN) ----- SULLY ENRIQUEZ ([id number]) 1990 F Date Time Provider Department 08/11/23 [facility] During your visit today, we recorded [...] Encounter Status:Closed by FRANCHESCA MAN on 08/11/23 [facility] CNOVon 08-07-2023 CNOV Office Visit (BRCRMN ) ----- SULLY ENRIQUEZ ([id number]) 1990 F Date Time Provider Department 08/07/23 10:30 AM [facility] During your visit today, we recorded the following information about you: Weight Height 105.2 kg 1.651 m Franchesca Man PA-C 08/07/2023 2:26 PM Signed MEDICAL BREAST PATIENT NAME: Sully Enriquez 08/07/2023 REFERRAL: She is self referred for an opinion regarding right breast biopsy. HISTORY of PRESENT ILLNESS: Sully Enriquez is a 33 year old year old premenopausal woman who presents to the [facility] [place] [facility] [place] today for second opinion of right breast [...] for her breast related issues at [facility] with care as follows: 06/25/23: Diagnostic bilateral DBT and US at [facility]): - RIGHT breast 8oclock 4-5cmfn hypoechoic 2cm [...] (232 lb) (more content not included)... Normal [facility] [employer]AST [employer] RTon 08-06 [facility] [employer]AST [employer] RT * * *Final Report* * * DATE OF EXAM: Aug 07 2023 12:08PM [facility] 0594 - [facility] RT / PROCEDURE REASON: multiple diagnoses * * * * Physician Interpretation * * * * RESULT: #[id number] - [facility] RT LIMITED ULTRASOUND OF RIGHT BREAST: 08/07/2023 [...] breast cancer. Janes Winston M.D. ns/:08/07/2023 13:24:03 V[facility] House Supervisor(s): Marilyn Jarrell RT(R)(M), [facility] Ultrasound BI-RADS: 2 Benign finding Multiple national specialty organizations have released breast cancer screening guidelines for women at average risk for developing breast cancer - guidelines that are based on both evidence and opinion, yet differ on when to start and how often to screen for breast cancer. With representation from Breast Imaging, Internal Medicine, Women's Health, Family Medicine, and Medical/Surgical Oncology, the [facility] has carefully reviewed the data and [...] their providers when to stop screening mammograms. Director Of Digital Technology: Aracely Transcribe Date/Time: Aug 07 2023 11:56A Dictated by : JANES WINSTON MD This examination was interpreted and the report reviewed and electronically signed by: JANES WINSTON MD on Aug 07 2023 1:24PM EST [id number] Normal [facility] US Breast - right limitedon 08-07-2023 [facility] CNPNon 07-30-2023 CNPN Telephone (BRCRBD) ----- SULLY ENRIQUEZ ([id number]) 1990 F Date Time Provider Department 07/30/23 [...] a second opinion. She was seen at [facility] in [place] I will reach out to them to retrieve any information and imaging needed for her appointment 08/07/23 with Franchesca FINNEGAN in the Breast Center [facility] contact number is [phone]. Kenia Peters MA Allergies As of Date: [...] Status:Closed by KENIA PETERS on 07/30/23 Normal [facility] Basophils Auto (Bld) [#/Vol] on 07-25-2023 Basophils (Bld) [#/Vol] 0.0 10 3/uL 0.0-0.1 [facility] Basophils/100 WBC Auto (Bld) on 07-25-2023 Basophils/100 WBC (Bld) 0.3 % 0.2-2.0 [facility] CNPNon 07-25-2023 CNPN Telephone (BRPREMBD) ----- SULLY ENRIQUEZ ([id number]) 1990 F Date Time Provider Department 07/25/23 [place], MOLLIE J BRCRBD During your visit today, we recorded the following information about you: Kenia Peters MA 07/25/2023 12:59 PM Signed Called patient to discuss her upcoming appointment with Franchesca Man in the breast center. I left a message asking patient to call me back @[phone]. Kenia Peetrs MA Allergies As of Date: 07/25/2023 Noted Allergy Reaction CIPROFLOXACIN 03/06/2021 16 - Unknown DICYCLOMINE 03/06/2021 16 - Unknown KETOROLAC 03/06/2021 16 - Unknown LORAZEPAM 03/06/2021 16 - Unknown NITROFURANTOIN 03/06/2021 16 - Unknown PENICILLINS 03/06/2021 16 - Unknown REGLAN (METOCLOPRAMIDE) 03/06/2021 16 - Unknown ZITHROMAX (AZITHROMYCIN) 03/06/2021 16 - Unknown Date Reviewed: 03/06/2021 Reviewed by: Breanne Reis RN - Fully Assessed Prescriptions as of 07/25/2023 - ALPRAZolam (XANAX) 1 mg tablet Take 1 mg by mouth twice daily as needed. Problem List As Of Date 07/25/2023 Noted Resolved Seizure (HCC) [R56.9] 03/06/2021 Headaches [R51.9] 03/07/2021 Encounter Status:Closed by KENIA PETERS on 07/25/23 Normal [facility] Eosinophils/100 WBC Auto (Bl d)on 07-25-2023 Eosinophils/100 WBC (Bld) 0.5 % 0.9-7.0 [facility] Erythrocyte distribution wid th Auto (RBC) [Ratio]on 07-25-2023 Erythrocyte distribution width (RBC) [Ratio] 12.0 % 11.0-15.0 [facility] Estimated glomerular filtrat ion rate (GFR) non- Americanon 07-25-2023 GFR/1.73 sq M.predicted among non-blacks MDRD (S/P/Bld) [Vol rate/Area] mL/min/{1.73_m2} >=60 [facility] Globulin Calc (S) [Mass/Vol] on 07-25-2023 Globulin (S) [Mass/Vol] 3.4 g/dL [facility] HCG ( test) IAHernandezrapi d Ql (U)on 07-25-2023 Beta HCG ( test) Ql (U) Negative NEGATIVE [facility] Hematocrit Auto (Bld) [Volum e fraction]on 07-25-2023 Hematocrit (Bld) [Volume fraction] 44.2 % 36.0-48.0 [facility] Hemoglobin [Mass/volume] in Bloodon 07-25-2023 Hemoglobin (Bld) [Mass/Vol] 14.5 g/dL 12.0-16.0 [facility] Laboratory - Chemistry and C hemistry - challengeon 07-25-2023 Albumin [Mass/Vol] 4.0 g/dL 3.4-5.0 [facility] ALP [Catalytic activity/Vol] 61 U/L 46-116 [facility] ALT [Catalytic activity/Vol] 25 U/L 14-59 [facility] AST [Catalytic activity/Vol] 13 U/L 15-37 [facility] Bilirubin [Mass/Vol] 0.6 mg/dL 0.2-1.0 [facility] Calcium [Mass/Vol] 8.8 mg/dL 8.5-10.1 [facility] Chloride [Moles/Vol] 103 mmol/L 98-107 [facility] CO2 [Moles/Vol] 24.0 mmol/L 21.0-32.0 [facility] Creatinine [Mass/Vol] 0.88 mg/dL 0.55-1.02 [facility] GFR/1.73 sq M.predicted MDRD (S/P/Bld) [Vol rate/Area] mL/min/{1.73_m2} >=60 [facility] Glucose [Mass/Vol] 99 mg/dL 74-106 [facility] Lipase [Catalytic activity/Vol] 23.0 U/L 16.0-77.0 [facility] Potassium [Moles/Vol] 3.9 mmol/L 3.5-5.1 [facility] Protein [Mass/Vol] 7.4 g/dL 6.4-8.2 [facility] Sodium [Moles/Vol] 138 mmol/L 136-145 [facility] Urea nitrogen [Mass/Vol] 10.0 mg/dL 7.0-18.0 [facility] Urea nitrogen/Creatinine [Mass ratio] 11.4 mg/mg [facility] Laboratory - Hematology and Cell countson 07-25-2023 Immature granulocytes/100 WBC (Bld) 0.3 % 0.0-0.5 [facility] Laboratory - Microbiology an d Antimicrobial susceptibilityon 07-25-2023 SARS-CoV-2 (COVID-19) RNA AZ+probe Ql (Unsp spec) Negative NEGATIVE [facility] Comment on above: This test has [...] Auto (Bld) [#/Vol] 11.0 10 3/uL 4.0-11.0 [facility] Lymphocytes Auto (Bld) [#/Vo l]on 07-25-2023 Lymphocytes (Bld) [#/Vol] 0.8 10 3/uL 1.2-3.8 [facility] Lymphocytes/100 WBC Auto (Bl d)on 07-25-2023 Lymphocytes/100 WBC (Bld) 7.5 % 20.5-60.0 [facility] MCH Auto (RBC) [Entitic mass ]on 07-25-2023 MCH (RBC) [Entitic mass] 31.6 pg 26.7-34.0 [facility] MCHC Auto (RBC) [Mass/Vol]on 07-25-2023 MCHC (RBC) [Mass/Vol] 32.8 g/dL 29.9-35.2 [facility] MCV Auto (RBC) [Entitic vol] on 07-25-2023 MCV (RBC) [Entitic vol] 96.3 fL 81.0-99.0 [facility] Monocytes Auto (Bld) [#/Vol] on 07-25-2023 Monocytes (Bld) [#/Vol] 0.4 10 3/uL 0.3-0.8 [facility] Monocytes/100 WBC Auto (Bld) on 07-25-2023 Monocytes/100 WBC (Bld) 3.9 % 1.7-12.0 [facility] Neutrophils Auto (Bld) [#/Vo l]on 07-25-2023 Neutrophils (Bld) [#/Vol] 9.7 10 3/uL 1.4-6.5 [facility] Neutrophils/100 WBC Auto (Bl d)on 07-25-2023 Neutrophils/100 WBC (Bld) 87.5 % 43.0-75.0 [facility] No Panel Informationon 07-24 Bedside Influenza Type A Antigen Negative [facility] Comment on above: Negative for Flu A p rotein antigen. Infection due to Flu Acannot be ruled out. Flu A antigen in the sample may bebelow the detection limit of the test. Bedside Influenza Type B Antigen Negative [facility] Comment on above: Negative for Flu B p rotein antigen. Infection due to Flu Bcannot be ruled out. Flu B antigen in the sample may bebelow the detection limit of the test. Eosinophils # (Auto) 0.1 10 3/uL 0.0-0.7 [facility] Immature Granulocyte # (Auto) 0.03 10 3/uL 0.00-0.03 [facility] Platelet mean volume Auto (B ld) [Entitic vol]on 07-25-2023 Platelet mean volume (Bld) [Entitic vol] 10.4 fL 9.5-13.5 [facility] Platelets Auto (Bld) [#/Vol] on 07-25-2023 Platelets (Bld) [#/Vol] 194 10 3/uL 150-450 [facility] RBC Auto (Bld) [#/Vol]on RBC (Bld) [#/Vol] 4.59 10 6/uL 4.20-5.40 [facility] Serum or plasma albumin/glob ulin mass ratioon 07-25-2023 Albumin/Globulin [Mass ratio] 1.2 {ratio} [facility] Serum or plasma anion gap de terminationon 07-25-2023 Anion gap [Moles/Vol] 14.9 mmol/L [facility] 07-07-2023 L Specimen: [id number] Received: 07/07/23 Status: ALEJANDRA Travis Num: [id number] Spec Type: Surgical Subm Dr: Pablo Lindo II, MD Tissues: A BREAST CORE NO CALCS (RT BREAST TISSUE) Procedures: HE/2, Gross/Micro L4, AE1-AE3, CK5 6 Age/ Patient Sex Location Account Attending Physician Sully Enriquez 33/F LESLIE [id number] Lucero Belle DO SPEC NUM: [id number] RECD: 07/07/23 STATUS: ALEJANDRA TRAVIS NUM: [id number] MEGAN: 07/07/[address]: Pablo Lindo II, MD ENTERED: 07/07/23 [facility] DR: Lucero Belle DO SPEC TYPE: [...] Time: 0.08 Formalin Fixation Time: 6.62 Specimen: [id number] Received: 07/07/23 Status: ALEJANDRA Travis Num: [id number] Spec Type: Surgical Subm Dr: Pablo Lindo II, MD Tissues: A BREAST CORE NO CALCS (RT BREAST TISSUE) Procedures: HE/2, Gross/Micro L4, AE1-AE3, CK5 6 Patient: Sully Enriquez [id number] (Continued) Specimen: [id number] Received: 07/07/23 (Continued) Signed (signature on file) Mireya Garcia MD 07/09/23 164 Specimen: Received: 07/07/23 Status: ALEJANDRA Travis Num: [id number] Spec Type: Surgical Subm Dr: Pablo Lindo II, MD Tissues: A BREAST CORE NO CALCS (RT BREAST TISSUE) Procedures: HE/2, Gross/Micro L4, AE1-AE3, CK5 6 Patient: Sully Enriquez [id number] (Continued) Specimen: Received: 07/07/23 (Continued) CPT Codes 70382 Specimen: [id number] Received: 07/07/23 Status: ALEJANDRA Travis Num: [id number] Spec Type: Surgical Subm Dr: Pablo Lindo II, MD Tissues: A BREAST CORE NO CALCS (RT BREAST TISSUE) Procedures: HE/2, Gross/Micro L4, AE1-AE3, CK5 6 Patient: ZoeSully M [id number] (Continued) Signed (signature on file) Mireya Garcia MD 07/09/231648 Normal [facility] US breast ndl core biopsy RT on 07-07-2023 breast ndl core biopsy RT [facility] [address] [place] [address] Ultrasound Report Signed Patient: ZoeOchoaSully Alyse MR#: [id number] : 1990 Acct:[id number] Age/Sex: 33 / F ADM Date: 07/07/23 Loc: [facility] Room: Type: [facility] Attending Dr: Lucero Belle DO Ordering Provider: Lucero Belle DO Date of Service: 07/07/23 US/US breast ndl core biopsy RT: R92.8 ([id number]) MM/MM post biopsy RT w/CAD: POST U/S [...] of the right breast was performed by vascular technologist sonographer as well as myself. At the 8:00 [...] 8:00 position were performed using a 12-gauge [employer] vacuum-assisted core biopsy needle under ultrasound guidance. [...] Pablo Lindo M.D.07/07/2023 11:55 AM Tech: Theresa Juarez Radha Joseph Transcribed By: 07/07/23 1239 Dictated By: Pablo Lindo II, MD 07/07/23 1155 Signed By: 07/10/23 0836 Normal [facility] Physician [facility] BI MAMMOGRAM DIAGNOSTIC DOMINIC SYNTHESIS BILATERALon 06-25-2023 [...] IS VERY IMPORTANT TO YOUR HEALTH. THE [place] [employer] GUIDELINES RECOMMEND THAT WOMEN 40 YEARS OF AGE AND OLDER SHOULD HAVE A MAMMOGRAM EVERY YEAR. A REMINDER LETTER WILL BE SENT AT THE APPROPRIATE TIME. ELECTRONICALLY SIGNED BY: Sam Fox, DO Abnormal Not Available BI US BREAST COMPLETE VIDAL Greco 06-25-2023 BI US BREAST COMPLETE BILATERAL This [...] IS VERY IMPORTANT TO YOUR HEALTH. THE [place] GUIDELINES RECOMMEND THAT WOMEN 40 YEARS OF AGE AND OLDER SHOULD HAVE A MAMMOGRAM EVERY YEAR. A REMINDER LETTER WILL BE SENT AT THE APPROPRIATE TIME. ELECTRONICALLY SIGNED BY: Sam Fox, Abnormal Not Available Alanine aminotransferase [En zymatic activity/volume] in Serum or PlasmaOrdered By: Bhanu Alvarez on 06-03-2023 ALT [Catalytic activity/Vol] 19 U/L Normal 7-52 [facility] Comment on above: Order Comment: Hemol yzed-requested redraw @ 1442. MLG Performed By: #### C MP, PRL, CBC ####[facility] [id number] [place] [id number] [facility] Albumin [Mass/volume] in Ser um or Plasma by Bromocresol green (BCG) dye binding methoOrdered By: Bhanu Alvarez on 06-03-2023 Albumin BCG dye [Mass/Vol] 4.6 g/dL 3.5-5.7 [facility] Alkaline phosphatase [Enzyma tic activity/volume] in Serum or PlasmaOrdered By: Bhanu Alvarez on 06-03-2023 ALP [Catalytic activity/Vol] 46 U/L Normal 34-104 [facility] Comment on above: Order Comment: Hemol yzed-requested redraw @ 1442. MLG Performed By: #### C MP, PRL, CBC ####[facility] [id number] [place] [id number] [facility] Amphetamine Screen Ql (U)Ord ered By: Bhanu Alvarez on 06-03-2023 Amphetamines Ql (U) Negative Negative [facility] Aspartate aminotransferase [ Enzymatic activity/volume] in Serum or PlasmaOrdered By: Bhanu Alvarez on 06-03-2023 AST [Catalytic activity/Vol] 14 U/L Normal 13-39 [facility] Comment on above: Order Comment: Hemol yzed-requested redraw @ 1442. MLG Performed By: #### C MP, PRL, CBC ####[facility] [id number] [place] [id number] [place] Automated basophil %Ordered By: Bhanu Alvarez on 06-03-2023 Basophils/100 WBC (Bld) 0.6 % Normal . [facility] Comment on above: Performed By: #### C MP, PRL, CBC ####[place] [id number] [address] Automated basophil countOrde red By: Bhanu Alvarez on 06-03-2023 Basophils (Bld) [#/Vol] 0.0 10*3/uL Normal 0.0-0.2 [facility] Comment on above: Result Comment: PERF ORMED BY: [facility] [address] [place] [address] PATHOLOGIST STATIONARY ENGINEER LEV HERNÁNDEZ M.D. Performed By: #### C MP, PRL, CBC ####[address] Automated blood monocyte cou ntOrdered By: Bhanu Alvarez on 06-03-2023 Monocytes (Bld) [#/Vol] 0.4 10*3/uL Normal 0.0-0.8 [facility] Comment on above: Performed By: #### C MP, PRL, CBC ####[address] Automated eosinophil %Ordere d By: Bhanu Alvarez on 06-03-2023 Eosinophils/100 WBC (Bld) 2.1 % Normal . [facility] Comment on above: Performed By: #### C MP, PRL, CBC ####[address] Automated eosinophil countOr dered By: Bhanu Alvarez on 06-03-2023 Eosinophils (Bld) [#/Vol] 0.1 10*3/uL Normal 0.0-0.45 [facility] Comment on above: Performed By: #### C MP, PRL, CBC ####[address] Automated monocyte %Ordered By: Bhanu Alvarez on 06-03-2023 Monocytes/100 WBC (Bld) 6.5 % Normal . [facility] Comment on above: Performed By: #### C MP, PRL, CBC ####[address] Automated neutrophil %Ordere d By: Bhanu Alvarez on 06-03-2023 Neutrophils/100 WBC (Bld) 52.8 % Normal . [facility] Comment on above: Performed By: #### C MP, PRL, CBC ####[facility] [id number] Automated urine color determ inationOrdered By: Bhanu Alvarez on 06-03-2023 Color (U) Yellow Normal Yellow [facility] Comment on above: Order Comment: Name Collection Type:: Clean-Voided Midstream Performed By: #### U A, UHCG, URDS #### [facility] [address] Barbiturates [Presence] in U rine by Screen methodOrdered By: Bhanu Alvarez on 06-03-2023 Barbiturates Screen Ql (U) Negative Negative [facility] Benzodiazepines Screen Ql (U )Ordered By: Bhanu Alvarez on 06-03-2023 Benzodiazepines Ql (U) Positive Negative [facility] Benzoylecgonine [Presence] i n Urine by Screen methodOrdered By: Bhanu Alvarez on 06-03-2023 Benzoylecgonine Screen Ql (U) Negative Negative [facility] Bilirubin Test strip Ql (U)O rdered By: Bhanu Alvarez on 06-03-2023 Bilirubin Ql (U) Negative Negative [facility] Bilirubin.total [Mass/volume ] in Serum or PlasmaOrdered By: Bhanu Alvarez on 06-03-2023 Bilirubin [Mass/Vol] 0.4 mg/dL Normal 0.3-1.0 [facility] Comment on above: Order Comment: Hemol yzed-requested redraw @ 1442. MLG Performed By: #### C MP, PRL, CBC ####[facility] [id number] angio chest PE protocolon 06-03-2023 CT angio chest PE protocol [facility] [address] [place] [address] [place] [address] CT Scan Report Signed Patient: Sully Enriquez MR#: [id number] : 1990 Acct:[id number] Age/Sex: 33 / F ADM Date: 06/03/23 Loc: ER Room: Type: [facility] ER Attending Dr: Copies to: Bhanu Alvarez [...] Turner Jr., D.O.06/03/2023 5:48 PM Dictation Location: [place] [address] Transcribed By: [facility] 06/03/231747 Dictated By: Luis Turner Jr, DO 06/03/231746 Signed By: 06/03/231747 Normal [facility] Calcium [Mass/volume] in Ser um or PlasmaOrdered By: Bhanu Alvarez on 06-03-2023 Calcium [Mass/Vol] 9.5 mg/dL Normal 8.6-10.3 [facility] Comment on above: Order Comment: Hemol yzed-requested redraw @ 1442. MLG Performed By: #### C MP, PRL, CBC ####[facility] [id number] [place] [id number] [facility] Cannabinoids [Presence] in U rine by Screen methodOrdered By: Bhanu Alvarez on 06-03-2023 Cannabinoids Screen Ql (U) Negative Negative [facility] Comment on above: These are unconfirme d results and should not be used for legal purposes. Drug Cut-Off Concentration: AMPH 1000 ng/mL WILIAN 200 ng/mL LESLY 200 ng/mL COCM 300 ng/mL OP 300 ng/mL PCP 25 ng/mL THC 20 ng/mL Carbon dioxide, total [Moles /volume] in Serum or PlasmaOrdered By: Bhanu Alvarez on 06-03-2023 CO2 [Moles/Vol] 22.4 mmol/L Normal 21.0-31.0 [facility] Comment on above: Order Comment: Hemol yzed-requested redraw @ 1442. MLG Performed By: #### C MP, PRL, CBC ####[address] Chloride [Moles/volume] in S juan carlos or PlasmaOrdered By: Bhanu Alvarez on 06-03-2023 Chloride [Moles/Vol] 108 mmol/L High 98-107 [facility] Comment on above: Order Comment: Hemol yzed-requested redraw @ 1442. MLG Performed By: #### C MP, PRL, CBC ####[address] Complete Blood Count Auto Di ffon 06-03-2023 Mean Corpuscular HGB Conc 33.9 g/dL Normal 32.0-35.0 [facility] Comment on above: Performed By: #### C MP, PRL, CBC ####[address] Monocytes/100 WBC (Bld) 18.41 % Normal 0.00-20.00 [facility] Comment on above: Performed By: #### C MP, PRL, CBC ####[address] NRBC% 0.0 /100{WBC} Normal 0-0.5 [facility] Comment on above: Performed By: #### C MP, PRL, CBC ####[place] [id number] [facility] Comprehensive Metabolic Pane mitchel 06-03-2023 Albumin [Mass/Vol] 4.6 g/dL Normal 3.5-5.7 [facility] Comment on above: Order Comment: Hemol yzed-requested redraw @ 1442. MLG Performed By: #### C MP, PRL, CBC ####[address] [address] [facility] Creatinine Clr Calc Pharmacy 110.22 Normal [facility] Comment on above: Order Comment: Hemol yzed-requested redraw @ 1442. MLG Performed By: #### C MP, PRL, CBC ####[place] [id number] [facility] GFR/1.73 sq M.predicted MDRD (S/P/Bld) [Vol rate/Area] mL/min/{1.73_m2} Normal [facility] Comment on above: Order Comment: Hemol yzed-requested redraw @ 1442. MLG Performed By: #### C MP, PRL, CBC ####[place] [id number] [facility] Creatinine [Mass/volume] in Serum or PlasmaOrdered By: Bhanu Alvarez on 06-03-2023 Creatinine [Mass/Vol] 0.86 mg/dL Normal 0.60-1.20 [facility] Comment on above: Order Comment: Hemol yzed-requested redraw @ 1442. MLG Performed By: #### C MP, PRL, CBC ####[place] [id number] [facility] D-Dimer High Sensitivityon 0 06-03-2023 D-Dimer High Sensitivity 282 ng/mL High 0-243 [facility] Comment on above: Result Comment: The reference [...] coagulation studies. Please contact the laboratory at [phone] for redraw instructions. PERFORMED BY: [place] [address] PATHOLOGIST STATIONARY ENGINEER LEV HERNÁNDEZ M.D. Performed By: #### D DIMER #### [address] Drug Screen,Urineon 06-03-19 24 Amphetamine Screen,Urine Negative Normal Negative [facility] Comment on above: Performed By: #### U A, UHCG, URDS #### [place] [address] [place] Barbiturate Screen,Urine Negative Normal Negative [facility] Comment on above: Performed By: #### U A, UHCG, URDS #### [place] [address] [place] Benzodiazepines Screen,Urine Positive High Negative [facility] Comment on above: Performed By: #### U A, UHCG, URDS #### [address] Cannabinoid Screen,Urine Negative Normal Negative [facility] Comment on above: Result Comment: Thes e are unconfirmed results and should not be used for legal purposes. Drug Cut-Off Concentration: AMPH 1000 ng/mL WILIAN 200 ng/mL LESLY 200 ng/mL COCM 300 ng/mL OP 300 ng/mL PCP 25 ng/mL THC 20 ng/mL PERFORMED BY: [place] [address] PATHOLOGIST STATIONARY ENGINEER LEV HERNÁNDEZ M.D. Performed By: #### U A, UHCG, URDS #### [place] [address] [place] Cocaine Screen,Urine Negative Normal Negative [facility] Comment on above: Performed By: #### U A, KRYSTALCG, URDS #### [facility] [address] Opiate Screen,Urine Negative Normal Negative [facility] Comment on above: Performed By: #### U A, UHCG, URDS #### [facility] [address] Phencyclidine Screen,Urine Negative Normal Negative [facility] Comment on above: Performed By: #### U A, KRYSTALCG, URDS #### [facility] [address] ECG 12 lead ECGon 06-03-2023 ECG 12 lead ECG [facility] [place] [address] Electrocardiograph Report Signed Patient: Sully Enriquez MR#: [id number] : 1990 Acct:[id number] Age/Sex: 33 / F ADM Date: 06/03/23 Loc: ER Room: Type: [facility] ER Attending Dr: Ordering Provider: Bhanu Alvarez [...] Signed By Jose Cade DO 1547 Normal [facility] ECG 12 lead ECG [facility] [place] [address] Electrocardiograph Report Signed Patient: Sully Enriquez MR#: [id number] : 1990 Acct:[id number] Age/Sex: 33 / F ADM Date: 06/03/23 Loc: ER Room: Type: [facility] ER Attending Dr: Ordering Provider: Bhanu Alvarez [...] significant change was found Confirmed by JOSE CAED DO ([id number]) on 06/03/2023 3:47:34 PM Referred By: Electronically Signed By:JOSE CADE DO Transcribed By: MUS Signed By Jose Cade DO 1547 Normal [facility] Erythrocyte distribution wid th [Ratio] by Automated countOrdered By: Bhanu Alvarez on 06-03-2023 Erythrocyte distribution width (RBC) [Ratio] 12.5 % Normal 11.9-15.3 [facility] Comment on above: Performed By: #### C MP, PRL, CBC ####[facility] [id number] [address] Erythrocytes [#/volume] in B lood by Automated countOrdered By: Bhanu Alvarez on 06-03-2023 RBC (Bld) [#/Vol] 4.42 10*6/uL Normal 3.60-5.00 [facility] Comment on above: Performed By: #### C MP, PRL, CBC ####[facility] [id number] [address] Fibrin D-dimer [Presence] in Platelet poor plasma by Latex agglutinationOrdered By: Bhanu Alvarez on 06-03-2023 Fibrin D-dimer LA Ql (PPP) 282 ng/mL 0-243 [facility] Comment on above: The reference range [...] coagulation studies. Please contact the laboratory at [phone] for redraw instructions. Glucose [Mass/volume] in Ser um or PlasmaOrdered By: Bhanu Alvarez on 06-03-2023 Glucose [Mass/Vol] 102 mg/dL High 70-100 [facility] Comment on above: ADA recommended refe rence rangeRandom Glucose Reference Range is dependent on time and content of last meal. Glucose of more than 200 mg/dL in a nonstressed, ambulatory subject supports the diagnosis of Diabetes Mellitus. Order Comment: Adithya gramajo-requested redraw @ 1442. MLG Result Comment: Tina om Glucose Reference Range is dependent on time and content of last meal. Glucose of more than 200 mg/dL in a nonstressed, ambulatory subject supports the diagnosis of Diabetes Mellitus. ADA recommended reference range Performed By: #### C MP, PRL, CBC ####[facility] [id number] [place] [address] [facility] HCG ( test) IA.rapi d Ql (U)Ordered By: Bhanu Alvarez on 06-03-2023 HCG ( test) Ql (U) Negative [facility] HCG,Urineon 06-03-2023 Beta HCG ( test) Ql (U) Negative Normal [facility] Comment on above: Order Comment: Name Collection Type:: Clean-Voided Midstream Result Comment: PERF ORMED BY: [address] [address] PATHOLOGIST STATIONARY ENGINEER LEV HERNÁNDEZ M.D. Performed By: #### U A, UHCG, URDS #### [facility] [address] Hematocrit [Volume Fraction] of Blood by Automated countOrdered By: Bhanu Alvarez on 06-03-2023 Hematocrit (Bld) [Volume fraction] 41.5 % Normal 34.0-46.4 [facility] Comment on above: Performed By: #### C MP, PRL, CBC ####[address] Hemoglobin [Mass/volume] in BloodOrdered By: Bhanu Alvarez on 06-03-2023 Hemoglobin (Bld) [Mass/Vol] 14.1 g/dL Normal 11.8-15.4 [facility] Comment on above: Performed By: #### C MP, PRL, CBC ####[address] Ketones Auto test strip (U) [Mass/Vol]Ordered By: Bhanu Alvarez on 06-03-2023 Ketones (U) [Mass/Vol] Negative Negative [facility] Leukocytes [#/volume] correc armaan for nucleated erythrocytes in Blood by Automated counOrdered By: Bhanu Alvarez on 06-03-2023 WBC corrected for nucl RBC Auto (Bld) [#/Vol] 6.8 10*3/uL 3.8-11.6 [facility] Leukocytes [#/volume] in Blo od by Automated countOrdered By: Bhanu Alvarez on 06-03-2023 WBC (Bld) [#/Vol] 6.8 10*3/uL Normal 3.8-11.6 [facility] Comment on above: Performed By: #### C MP, PRL, CBC ####[address] Lymphocytes [#/volume] in Bl ood by Automated countOrdered By: Bhanu Alvarez on 06-03-2023 Lymphocytes (Bld) [#/Vol] 2.6 10*3/uL Normal 1.00-4.8 [facility] Comment on above: Performed By: #### C MP, PRL, CBC ####[address] Lymphocytes/100 leukocytes i n Blood by Automated countOrdered By: Bhanu Alvarez on 06-03-2023 Lymphocytes/100 WBC (Bld) 38.0 % Normal . [facility] Comment on above: Performed By: #### C MP, PRL, CBC ####[place] [id number] MCH [Entitic mass] by Automa armaan countOrdered By: Bhanu Alvarez on 06-03-2023 MCH (RBC) [Entitic mass] 31.8 pg Normal 24.7-34.3 [facility] Comment on above: Performed By: #### C MP, PRL, CBC ####[address] MCHC Auto (RBC) [Mass/Vol]Or dered By: Bhanu Alvarez on 06-03-2023 MCHC (RBC) [Mass/Vol] 33.9 g/dL 32.0-35.0 [facility] MCV [Entitic volume] by Auto mated countOrdered By: Bhanu Alvarez on 06-03-2023 MCV (RBC) [Entitic vol] 93.9 fL Normal 80-100 [facility] Comment on above: Performed By: #### C MP, PRL, CBC ####[address] Monocyte distribution width [Entitic volume] in Blood by AutomatedOrdered By: Bhanu Alvarez on 06-03-2023 Monocyte distribution width Auto (Bld) [Entitic vol] 18.41 % 0.00-20.00 [facility] Neutrophils [#/volume] in Bl ood by Automated countOrdered By: Bhanu Alvarez on 06-03-2023 Neutrophils (Bld) [#/Vol] 3.6 10*3/uL Normal 1.8-7.7 [facility] Comment on above: Performed By: #### C MP, PRL, CBC ####[address] Nitrite Test strip Ql (U)Ord ered By: Bhanu Alvarez on 06-03-2023 Nitrite Ql (U) Negative Negative [facility] No Panel InformationOrdered By: Bhanu Alvarez on 06-03-2023 Estimated GFR (CKD-EPI) > 60.0 mL/Min [facility] Pharmacy Creatinine Clearance (Chem 110.22 [facility] Nucleated erythrocytes [Pres ence] in Blood by Automated countOrdered By: Bhanu Alvarez on 06-03-2023 Nucleated RBC Auto Ql (Bld) 0.0 /100{WBC} 0-0.5 [facility] Opiates [Presence] in Urine by Screen methodOrdered By: Bhanu Alvarez on 06-03-2023 Opiates Screen Ql (U) Negative Negative [facility] Phencyclidine Screen Ql (U)O rdered By: Bhanu Alvarez on 06-03-2023 Phencyclidine Ql (U) Negative Negative [facility] Platelet mean volume [Entiti c volume] in Blood by Automated countOrdered By: Bhanu Alvarez on 06-03-2023 Platelet mean volume (Bld) [Entitic vol] 9.3 fL Normal 6.3-10.7 [facility] Comment on above: Performed By: #### C MP, PRL, CBC ####[facility] [id number] [place] [address] [facility] Platelets [#/volume] in Bloo d by Automated countOrdered By: Bhanu Alvarez on 06-03-2023 Platelets (Bld) [#/Vol] 196 10*3/uL Normal 150-450 [facility] Comment on above: Performed By: #### C MP, PRL, CBC ####[place] [id number] [place] [address] [facility] Potassium [Moles/volume] in Serum or PlasmaOrdered By: Bhanu Alvarez on 06-03-2023 Potassium [Moles/Vol] 3.7 mmol/L Normal 3.5-5.1 [facility] Comment on above: Order Comment: Adithya xiong redraw @ 1442. MLG Performed By: #### C MP, PRL, CBC ####[facility] [id number] [place] [address] [facility] Prolactinon 06-03-2023 Prolactin 8.46 ng/mL Normal 3.34-26.72 [facility] Comment on above: Order Comment: Hemol yzed-requested redraw @ 1442. MLG Result Comment: PERF ORMED BY: [facility] [address] [place] [address] PATHOLOGIST STATIONARY ENGINEER LEV HERNÁNDEZ M.D. Performed By: #### C MP, PRL, CBC ####[address] Prolactin [Mass/volume] in S juan carlos or PlasmaOrdered By: Bhanu Alvarez on 06-03-2023 Prolactin [Mass/Vol] 8.46 ng/mL 3.34-26.72 [facility] Protein Auto test strip (U) [Mass/Vol]Ordered By: Bhanu Alvarez on 06-03-2023 Protein (U) [Mass/Vol] Negative Negative [facility] Protein [Mass/volume] in Ser um or PlasmaOrdered By: Bhanu Alvarez on 06-03-2023 Protein [Mass/Vol] 7.5 g/dL Normal 6.4-8.9 [facility] Comment on above: Order Comment: Hemol yzed-requested redraw @ 1442. MLG Performed By: #### C MP, PRL, CBC ####[address] Serum globulin measurement b y calculation (mass/volume)Ordered By: Bhanu Alvarez on 06-03-2023 Globulin (S) [Mass/Vol] 2.9 g/dL Normal [facility] Comment on above: Order Comment: Hemol yzed-requested redraw @ 1442. MLG Performed By: #### C MP, PRL, CBC ####[place] [id number] [facility] Serum or plasma albumin/glob ulin mass ratioOrdered By: Bhanu Alvarez on 06-03-2023 Albumin/Globulin [Mass ratio] 1.6 {ratio} Normal [facility] Comment on above: Order Comment: Hemol yzed-requested redraw @ 1442. MLG Performed By: #### C MP, PRL, CBC ####[address] Serum or plasma anion gap de terminationOrdered By: Bhanu Alvarez on 06-03-2023 Anion gap [Moles/Vol] 11.3 mmol/L Normal 6.0-15.0 [facility] Comment on above: Order Comment: Hemol yzed-requested redraw @ 1442. MLG Performed By: #### C MP, PRL, CBC ####[place] [id number] [place] [id number] [facility] Sodium [Moles/volume] in Ser um or PlasmaOrdered By: Bhanu Alvarez on 06-03-2023 Sodium [Moles/Vol] 138 mmol/L Normal 136-145 [facility] Comment on above: Order Comment: Hemol yzed-requested redraw @ 1442. MLG Performed By: #### C MP, PRL, CBC ####[place] [id number] [place] [id number] [facility] Specific gravity Auto test s trip (U) [Rel density]Ordered By: Bhanu Alvarez on 06-03-2023 Specific gravity (U) [Rel density] 1.010 1.001-1.030 [facility] Troponin I High Sensitivityo n 06-03-2023 Troponin I High Sensitivity < 2.3 Normal 0.0-15.0 [facility] Comment on above: Result Comment: PERF ORMED BY: [facility] [address] [place] [address] PATHOLOGIST STATIONARY ENGINEER LEV HERNÁNDEZ M.D. Performed By: #### H S TROP ####[place] [id number] [facility] Troponin I.cardiac [Mass/vol ume] in Serum or Plasma by Detection limit <= 0.01 ng/Ordered By: Bhanu Alvarez on 06-03-2023 Troponin I.cardiac DL <= 0.01 ng/mL [Mass/Vol] < 2.3 pg/mL 0.0-15.0 [facility] Urea nitrogen [Mass/volume] in Serum or PlasmaOrdered By: Bhanu Alvarez on 06-03-2023 Urea nitrogen [Mass/Vol] 10 mg/dL Normal 7-25 [facility] Comment on above: Order Comment: Hemol yzed-requested redraw @ 1442. MLG Performed By: #### C MP, PRL, CBC ####[facility] I[address] Urinalysison 06-03-2023 Appearance (U) Clear Normal Clear [facility] Comment on above: Order Comment: Name Collection Type:: Clean-Voided Midstream Performed By: #### U A, UHCG, URDS #### [facility] [address] Bilirubin,Urine Negative Normal Negative [facility] Comment on above: Order Comment: Name Collection Type:: Clean-Voided Midstream Performed By: #### U A, UHCG, URDS #### [address] Glucose Ql (U) Normal Normal Normal [facility] Comment on above: Order Comment: Name Collection Type:: Clean-Voided Midstream Performed By: #### U A, UHCG, URDS #### [address] Ketones Ql (U) Negative Normal Negative [facility] Comment on above: Order Comment: Name Collection Type:: Clean-Voided Midstream Performed By: #### U A, UHCG, URDS #### [address] Leukocyte esterase Test strip Ql (U) Negative Normal Negative [facility] Comment on above: Order Comment: Name Collection Type:: Clean-Voided Midstream Performed By: #### U A, UHCG, URDS #### [address] Nitrite,Urine Negative Normal Negative [facility] Comment on above: Order Comment: Name Collection Type:: Clean-Voided Midstream Performed By: #### U A, UHCG, URDS #### [address] Occult Blood,Urine Negative Normal Negative [facility] Comment on above: Order Comment: Name Collection Type:: Clean-Voided Midstream Performed By: #### U A, UHCG, URDS #### [facility] [address] Protein,Urine Negative Normal Negative [facility] Comment on above: Order Comment: Name Collection Type:: Clean-Voided Midstream Performed By: #### U A, UHCG, URDS #### [facility] [address] Specificy Sallis,Urine 1.010 Normal 1.001-1.030 [facility] Comment on above: Order Comment: Name Collection Type:: Clean-Voided Midstream Performed By: #### U A, UHCG, URDS #### [facility] [address] Urobilinogen,Urine Normal Normal Normal [facility] Comment on above: Order Comment: Name Collection Type:: Clean-Voided Midstream Performed By: #### U A, UHCG, URDS #### [address] Urine clarity by refractomet ry automatedOrdered By: Bhanu Alvarez on 06-03-2023 Clarity Refractometry automated (U) Clear Clear [facility] Urine glucose measurement by automated test strip (mass/volume)Ordered By: Bhanu Alvarez on 06-03-2023 Glucose Auto test strip (U) [Mass/Vol] Normal mg/dL Normal [facility] Urine hemoglobin detection b y automated test stripOrdered By: Bhanu Alvarez on 06-03-2023 Hemoglobin Auto test strip Ql (U) Negative Negative [facility] Urine leukocyte esterase det ection by automated test stripOrdered By: Bhanu Alvarez on 06-03-2023 Leukocyte esterase Auto test strip Ql (U) Negative Negative [facility] Urine pH measurement by auto mated test stripOrdered By: Bhanu Alvarez on 06-03-2023 pH (U) 6.5 [pH] Normal 5.0-9.0 [facility] Comment on above: Order Comment: Name Collection Type:: Clean-Voided Midstream Performed By: #### U A, UHCG, URDS #### [facility] [address] [place] [address] Urobilinogen Auto test strip (U) [Mass/Vol]Ordered By: Bhanu Alvarez on 06-03-2023 Urobilinogen (U) [Mass/Vol] Normal mg/dL Normal [facility] Physician Referralon 023 Physician Referral [id number] Normal [facility] Physician Referralon 023 Physician Referral [id number]:12 7 Normal [facility] RAD - MISCon 12-27-2022 RAD - MISC [id number]#[id number]:12 7 Normal [facility] ED Note-Physicianon 11-27-19 ED Note-Physician [id number]#[id number]:12 7 Normal [facility] ED Note-Physician Basic Information Time Seen: Gaby Turner PA-C 11/22/2022 20:47 Chief Complaint L flank pain worsening x 2 weeks. pt. seen at [facility] x 2 with negative workup. hx kidney stones. also c/o N/V. denies fevers. History of Present Illness This patient presents emergency department chief complaint of left flank pain. The patient states this has been going on for 2 weeks. 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 I discussed with [...] the patient (more content not included)... Normal [facility] Comment on above: Result Comment: Elec [...] Locations R1: This test was performed at: [facility], [address] [place] [address], [address] , [place], [facility] Comment on above: Performed By: #### 1 [id number], [id number], [id number] #### [facility] [address] [place] [address] Discharge Instructionson Discharge Instructions [id number]:1 27 [facility] ED Clinical Summaryon 2022 ED Clinical Summary (Inserted Image. Jeniffer ble to display) [address] [address] ED Clinical Summary Person Information Name: SULLY ENRIQUEZ [facility] Age: 32 Years : 1990 Sex: Female Language: Tamazight PCP: MARIO GLASGOW DO Marital Status: Visit [...] 11/23/2022 01:20:40 11/23/2022 01:20:40 11/23/2022 01:20:40 ADDRESS: [address] [place] [phone] PHYS DOC NOTES: MEDICAL INFORMATION: Prescriptions Given: New Medications [id number], [address], [place] [id number], [phone] tramadol (traMADOL 50 mg Tab) 1 Tablets By Mouth every 6 hours as needed for pain. Refills: 0. Medications to Continue with No Changes Other Medications acetaminophen-hydrocodone (Lowry 5/325 Tab) By Mouth every 6 hours. [...] Endometriosis; Laparoscopic Lysis of Abdominal Adhesions; Adhesions, Xvli-ns-Yhkd; Abdominal Pain, Adult, Zpsb-ch-Zxcz Follow up: With: Address: When: SHEBA MARCOS [address] [place] [address] Business (1) In 3 days 11/26/2022 DIAGNOSIS: 1:Chronic left flank pain; 2:Abdominal pain, acute, left upper quadrant; Other chronic pain Normal [facility] ED Patient Education Noteon 11-23-2022 ED [...] including vitamins, herbs, eye drops, creams, and hzxx-ovw-ixsfeye medicines. ? Any problems you or family [...] tells you to take them. ? Taking tdww-twl-klvjqtm medicines, vitamins, herbs, and supplements. General instructions [...] returns. Aft (more content not included)... Normal [facility] ED Patient Summaryon 023 ED Patient Summary (Inserted Image. Jeniffer ble to display) [address] [address] Patient Discharge Instructions Person Information Name: SULLY ENRIQUEZ Age: 32 Years Arrival Date: 11/22/2022 19:01:04 Discharge Diagnosis: 1:Chronic left flank pain; 2:Abdominal pain, acute, left upper quadrant; Other chronic pain Primary Care Physician: MARIO GLASGOW DO Provider Information Primary Provider: Sonam Montoya DO Advanced Manufacturing Planner:None The exam and treatment you received in the Emergency Department were for an urgent problem and are not intended as complete care. It is important that you follow up with a doctor, nurse practitioner, or physician?s child life assistant for ongoing care. If your symptoms [...] Follow-up Instructions: With: Address: When: MARIO GLASGOW [address] [place], [place] [id number] Business (1) In 3 days 11/26/2022 In the event that this physician does not participate in your insurance network, please consult with your insurance company to find a nearby participating provider. Patient Education Materials: Endometriosis; Laparoscopic Lysis of Abdominal Adhesions; Adhesions, Wpjd-sg-Snry; Abdominal Pain, Adult, Glkr-db-Udsw A MESSAGE TO ALL PATIENTS REGARDING OPIOIDS PRESCRIPTION OPIOIDS: WHAT YOU NEED TO KNOW Prescription opioids can be used to help relieve jjtxkado-fi-wwkwkk pain and are often prescribed following a [...] struggling wit (more content not included)... Normal [facility] XR Abdomen 1 Viewon 11-24-19 XR [...] mGy = na DAP = na Normal [facility] Auto Diffon 11-22-2022 Basophils/100 WBC (Bld) 0.6 % Normal 0.0-2.[address] [facility] Comment on above: Order Comment: Order Added by Discern Expert. Performed By: #### 2 176432, 3786766, 0392353, 61330300, 6547745, 4314515 #### [facility] [address] [place] [address] 39893 Basophils/Leukocytes Auto (Bld) [Pure # fraction] 0.0 E9/L Normal 0.0-0.2 [facility] Comment on above: Order Comment: Order Added by Discern Expert. Performed By: #### 2 399396, 9753591, 0454091, 86089830, 3872136, 1699513 #### [facility] [address] [place] [address] 39597 Eosinophils/100 WBC (Bld) 1.5 % Normal 0.0-8.0 [facility] Comment on above: Order Comment: Order Added by Discern Expert. Performed By: #### 2 983694, 4955050, 2122618, 23219007, 0379337, 8758349 #### [facility] [address] [place] [address] 27652 Eosinophils/Leukocytes Auto (Bld) [Pure # fraction] 0.1 E9/L Normal 0.0-0.5 [facility] Comment on above: Order Comment: Order Added by Carson Expert. Performed By: #### 2 262943, 1838196, 9289651, 93052400, 8273746, 2730159 #### [facility] [address] [place] [address] 35467 Lymphocytes/100 WBC (Bld) 33.5 % Normal 14.0-50.0 [facility] Comment on above: Order Comment: Order Added by Carson Expert. Performed By: #### 2 372019, 6746928, 7702306, 74916425, 7238794, 1429483 #### [facility] [address] [place] [address] 25154 Lymphocytes/Leukocytes Auto (Bld) [Pure # fraction] 2.6 E9/L Normal 1.0-4.0 [facility] Comment on above: Order Comment: Order Added by Carson Expert. Performed By: #### 2 965157, 7320644, 0019025, 94838962, 8850424, 4165860 #### [facility] [address] [place] [address] 25938 Monocytes/100 WBC (Bld) 8.6 % Normal 4.0-14.0 [facility] Comment on above: Order Comment: Order Added by Carson Expert. Performed By: #### 2 812017, 4755693, 2156041, 89404189, 4185675, 4231316 #### [facility] [address] [place] [address] Monocytes/Leukocytes Auto (Bld) [Pure # fraction] 0.7 E9/L Normal 0.2-1.0 [facility] Comment on above: Order Comment: Order Added by Discern Expert. Performed By: #### 2 531223, 1986181, 5047327, 21504343, 4406447, 0297740 #### [facility] [address] [place] [address] Neutrophils/100 WBC (Bld) 55.8 % Normal 36.0-75.0 [facility] Comment on above: Order Comment: Order Added by Discern Expert. Performed By: #### 2 546841, 2002006, 7556313, 65810621, 0759030, 7256017 #### [facility] [address] [place] [address] Neutrophils/Leukocytes Auto (Bld) [Pure # fraction] 4.3 E9/L Normal 2.0-7.5 [facility] Comment on above: Order Comment: Order Added by Discern Expert. Performed By: #### 2 933619, 6900050, 1979188, 26200499, 3598205, 2371807 #### [facility] [address] [place] [address] 32781 BMPon 11-22-2022 Creatinine [Mass/Vol] 1.0 mg/dL Normal 0.5-1.3 [facility] Comment on above: Performed By: #### 2 996475, 3671059, 5699101, 68663244, 3329928, 5433028 #### [facility] [address] [place] [address] Urea nitrogen [Mass/Vol] 16 mg/dL Normal 5-21 [facility] Comment on above: Performed By: #### 2 815891, 5272497, 2296753, 42373593, 7252095, 9980313 #### [facility] [address] [place] [address] Urea nitrogen/Creatinine [Mass ratio] 16 No Units Normal 10-20 [facility] Comment on above: Performed By: #### 2 665125, 3633299, 9843255, 67403515, 0396788, 6999962 #### [facility] [address] [place] [address] Anion gap [Moles/Vol] 15 mmol/L Normal 6-16 [facility] Comment on above: Performed By: #### 2 653158, 7593162, 2769690, 60710813, 2004528, 7998719 #### [facility] [address] [place] [address] Calcium [Mass/Vol] 9.6 mg/dL Normal 8.9-11.1 [facility] Comment on above: Performed By: #### 2 807671, 1546229, 4196588, 90693132, 7956941, 9026017 #### [facility] [address] [place] [address] Chloride [Moles/Vol] 107 mmol/L Normal 101-111 [facility] Comment on above: Performed By: #### 2 159553, 2561328, 0998776, 22494386, 3661550, 9713534 #### [facility] [address] [place] [address] CO2 [Moles/Vol] 19 mmol/L Low 21-31 [facility] Comment on above: Performed By: #### 2 291663, 6198238, 4825224, 21707479, 1199384, 1101217 #### [facility] [address] [place] [address] Glucose [Mass/Vol] 97 mg/dL Normal 55-199 [facility] Comment on above: Result Comment: If t his glucose result represents a fasting glucose, interpretation should refer to the following reference range: 55-99 mg/dL Performed By: #### 2 116064, 2795660, 1056658, 56071879, 7521385, 1961669 #### [facility] [address] [place] [address] Potassium [Moles/Vol] 3.9 mmol/L Normal 3.5-5.3 [facility] Comment on above: Performed By: #### 2 890279, 4348789, 6308281, 16844468, 6861425, 3125409 #### [facility] [address] [place] [address] Sodium [Moles/Vol] 137 mmol/L Normal 135-145 [facility] Comment on above: Performed By: #### 2 728774, 1950220, 9098043, 15805608, 2084482, 0236951 #### [facility] [address] [place] [address] 54317 CBC w/ Auto Diffon 3 Erythrocyte distribution width (RBC) [Ratio] 13.0 % Normal 10.9-14.2 [facility] Comment on above: Performed By: #### 2 138922, 8274540, 6108065, 73675651, 5275495, 7557812 #### [facility] [address] [place] [address] Hematocrit (Bld) [Volume fraction] 42.7 % Normal 34.0-46.0 [facility] Comment on above: Performed By: #### 2 277535, 5456416, 3604650, 50898205, 0406797, 6082954 #### [facility] [address] [place] [address] 67689 Hemoglobin (Bld) [Mass/Vol] 14.6 g/dL Normal 12.0-16.0 [facility] Comment on above: Performed By: #### 2 610234, 2260207, 0096294, 75265382, 2902527, 7478360 #### [facility] [address] [place] [address] 10422 MCH (RBC) [Entitic mass] 31.7 pg Normal 27.0-34.0 [facility] Comment on above: Performed By: #### 2 248543, 3139487, 6282034, 76764178, 9242040, 9961883 #### [facility] [address] [place] [address] MCHC (RBC) [Mass/Vol] 34.1 g/dL Normal 31.4-36.0 [facility] Comment on above: Performed By: #### 2 650927, 1561810, 6731213, 25373253, 7464887, 1976674 #### [facility] [address] [place] [address] 03713 MCV (RBC) [Entitic vol] 93.1 fL Normal 80.0-100.[address] [facility] Comment on above: Performed By: #### 2 649506, 7145666, 7678200, 22397498, 7281289, 7523536 #### [facility] [address] [place] [address] 70778 Platelet mean volume (Bld) [Entitic vol] 8.8 fL Normal 6.4-10.8 [facility] Comment on above: Performed By: #### 2 504546, 0039056, 3152345, 36302256, 5117654, 4094175 #### [facility] [address] [place] [address] 95330 Platelets (Bld) [#/Vol] 199.0 E9/L Normal 150.0-500.0 [facility] Comment on above: Performed By: #### 2 730429, 7815057, 8447242, 55521907, 1477118, 5744203 #### [facility] [address] [place] [address] 79712 RBC (Bld) [#/Vol] 4.6 E12/L Normal 4.3-5.9 [facility] Comment on above: Performed By: #### 2 305976, 1479643, 8267660, 87657876, 2558740, 3642792 #### [facility] [address] [place] [address] 53383 WBC corrected for nucl RBC Auto (Bld) [#/Vol] 7.7 E9/L Normal 4.0-11.0 [facility] Comment on above: Performed By: #### 2 654824, 5252891, 2560452, 83735793, 5991444, 4091473 #### [facility] [address] [place] [address] CHEMISTRYOrdered By: SYSTEM SYSTEM on 11-22-2022 Albumin [...] 76 mL/min/1.73 m2 Normal >=59mL/min/ 1.73 m2 FT Chem S Globulin (S) [Mass/Vol] 3.4 g/dL Normal 1.4 - 4.0 gm/dL [facility] Glucose [Mass/Vol] 97 mg/dL Normal 55 - 199 mg/dL [facility] Lipase [Catalytic activity/Vol] 28 U/L Normal 13 - 58 unit/L [facility] Potassium [Moles/Vol] 3.9 mmol/L Normal 3.5 - 5.3 mmol/L [facility] Protein [Mass/Vol] 7.9 g/dL High 6.0 - 7.8 gm/dL [facility]isol Sodium [Moles/Vol] 137 mmol/L Normal 135 - 145 mmol/L [facility] Remisol Urea nitrogen [Mass/Vol] 16 mg/dL Normal 5 - 21 mg/dL [facility] Remisol Urea nitrogen/Creatinine [Mass ratio] 16 mg/mg Normal 10 - 20 [facility] Remisol Consent for Treatmenton Consent for Treatment [id number] Normal [facility] HEMATOLOGYOrdered By: SYSTEM SYSTEM on 11-22-2022 [...] 31.7 pg Normal 27.0 - 34.0 pg FT HemeAutoSS MCHC (RBC) [Mass/Vol] 34.1 g/dL Normal [...] Bilirubin.indirect [Mass or moles/Vol] UTC Abnormal 0.1-0.9 [facility] Comment on above: Result Comment: Resu lt verified by Discern Rule. Performed result UTC (Unable to Calculate) was sent as an Alpha code due the inability to calculate a valid numeric value. Performed By: #### 2 518205, 7168786, 4218322, 49135363, 5362460, 3760703 #### [facility] [address] [place] [address] 01340 Albumin [Mass/Vol] 4.5 g/dL Normal 3.3-5.0 [facility] Comment on above: Performed By: #### 2 805950, 4603226, 7179217, 90066905, 4773825, 9759930 #### [facility] [address] [place] [address] 07394 Albumin/Globulin (S) [Mass conc ratio] 1.3 Normal 1.1-2.2 [facility] Comment on above: Performed By: #### 2 864544, 2167156, 6341892, 95627555, 7208194, 5160609 #### [facility] [address] [place], [place] [address] ALP [Catalytic activity/Vol] 42 Int._Unit/L Normal 21-98 [facility] Comment on above: Performed By: #### 2 393636, 2462106, 7365687, 81276224, 2464163, 8778610 #### [facility] [address] [place] [address] 32841 ALT No additional P-5'-P [Catalytic activity/Vol] 36 Int._Unit/L Normal 6-46 [facility] Comment on above: Performed By: #### 2 246583, 8333360, 5702659, 58883088, 3059122, 8887647 #### [facility] [address] [place] [address] 04308 AST [Catalytic activity/Vol] 26 Int._Unit/L Normal 5-43 [facility] Comment on above: Performed By: #### 2 132712, 1414953, 0438038, 09888901, 6875327, 0042260 #### [facility] [address] [place] [address] 40502 Bilirubin [Mass/Vol] 0.6 mg/dL Normal 0.0-1.1 [facility] Comment on above: Performed By: #### 2 686256, 1132567, 6830035, 79303716, 2681023, 4274909 #### [facility] [address] [place] [address] Globulin (S) [Mass/Vol] 3.4 g/dL Normal 1.4-4.[address] [facility] Comment on above: Performed By: #### 2 708600, 1317363, 7493980, 29576135, 8593968, 2522483 #### [facility] [address] [place] [address] Protein [Mass/Vol] 7.9 g/dL High 6.0-7.8 [facility] Comment on above: Performed By: #### 2 932413, 6368563, 0293464, 61242756, 4023982, 4387786 #### [facility] [address] [place] [address] Bilirubin.direct [Mass/Vol] mg/dL Normal 0.1-0.4 [facility] Comment on above: Performed By: #### 2 066467, 6471525, 4412670, 75031493, 2113010, 5084931 #### [facility] [address] [place] [address] 38380 Laboratory - Microbiology an d Antimicrobial susceptibilityOrdered By: Sherice Espinosa on 11-22-2022 Bacteria identified Cx Nom (U) 500 cfu/ml Mixed skin contaminants [facility] Lipase Levelon 11-22-2022 Lipase [Catalytic activity/Vol] 28 U/L Normal 13-58 [facility] Comment on above: Performed By: #### 2 856049, 7550726, 4973082, 13029925, 8404411, 9037165 #### [facility] [address] [place] [address] SEROLOGYOrdered By: Mario orellana on 11-22-2022 HCG.beta subunit (U) [Moles/Vol] Negative Normal [facility] Man Sero U BetaHcg Qualon 11-22-2022 HCG.beta subunit (U) [Moles/Vol] Negative Normal [facility] Comment on above: Performed By: #### 1 3337439, 3375040, 65739744 #### [facility] [address] [place] [address] UA With Cult Reflexon 2022 Bacteria LM Ql (Urine sed) 2+ /HPF Abnormal Trace [facility] Comment on above: Performed By: #### 1 8017280, 2722876, 58275148 #### [facility] [address] [place] [address] Bilirubin Ql (U) Negative Normal Negative [facility] Comment on above: Performed By: #### 1 3507441, 2241794, 80121953 #### [facility] [address] [place] [address] Clarity (U) CLEAR Normal Clear [facility] Comment on above: Performed By: #### 1 3287700, 6285627, 77959580 #### [facility] [address] [place] [address] Color (U) YELLOW Normal Yellow [facility] Comment on above: Performed By: #### 1 9431829, 6963900, 87281543 #### [facility] [address] [place] [address] Epithelial cells.squamous LM.HPF (Urine sed) [#/Area] 5-8 Normal 0-2 [facility] Comment on above: Performed By: #### 1 7656967, 3817111, 59996096 #### [facility] [address] [place] [address] Glucose Test strip (U) [Mass/Vol] Negative Normal Negative [facility] Comment on above: Performed By: #### 1 4673214, 4542687, 06856858 #### [facility] [address] [place] [address] Hemoglobin Ql (U) Negative Normal Negative [facility] Comment on above: Performed By: #### 1 6395646, 7359639, 75665763 #### [facility] [address] [place] [address] Ketones (U) [Mass/Vol] Negative Normal Negative [facility] Comment on above: Performed By: #### 1 1956250, 7954314, 34750669 #### [facility] [address] [place] [address] [place].plasma/[place]. RBC (Bld) [Mass ratio] 0-3 Normal 0-3 [facility] Comment on above: Performed By: #### 1 3732176, 2339426, 93795425 #### [facility] [address] [place] [address] Mucus Ql (Urine sed) TRACE Normal [facility] Comment on above: Performed By: #### 1 1377989, 5027170, 87016397 #### [facility] [address] [place] [address] Nitrite Ql (U) Negative Normal Negative [facility] Comment on above: Performed By: #### 1 0347986, 8923818, 88635664 #### [facility] [address] [place] [address] pH (U) 6.0 [pH] Invalid Interpretation Code 5.0-9.0 [facility] Comment on above: Performed By: #### 1 9657643, 6884431, 37946454 #### [facility] [address] [place] [address] 89899 Protein (U) [Mass/Vol] Negative Normal Negative [facility] Comment on above: Performed By: #### 1 1439098, 2605731, 28904579 #### [facility] [address] [place] [address] 13528 Specific gravity (U) [Rel density] 1.025 Invalid Interpretation Code 1.005-1.030 [facility] Comment on above: Performed By: #### 1 4162763, 8762963, 75004066 #### [facility] [address] [place] [address] 85680 Type of Urine collection method Clean Catch Normal [facility] Comment on above: Performed By: #### 1 2074940, 5094838, 17994385 #### [facility] [address] [place] [address] Urobilinogen Qn (U) 0.2 {Elba'U}/dL Normal 0.0-1.0 [facility] Comment on above: Performed By: #### 1 5880374, 8185521, 98265668 #### [facility] [address] [place] [address] WBC Auto Ql (U) Negative Normal Negative [facility] Comment on above: Performed By: #### 1 5027282, 1791198, 79100944 #### [facility] [address] [place] [address] WBC LM.HPF (Urine sed) [#/Area] 0-5 Normal 0-5 [facility] Comment on above: Performed By: #### 1 2669969, 2263993, 03280281 #### [facility] [address] [place] [address] URINALYSISOrdered By: Mario howell on 11-22-2022 Bacteria [...] PM) Normal Negative [facility] UA Auto SS [place].plasma/[place]. RBC (Bld) [Mass ratio] 0-3 /HPF Normal 0-3/HPF [facility] UA Auto SS Mucus Ql (Urine sed) Trace (11/22/22 7:19 PM) Normal [facility] UA Auto SS Nitrite Ql (U) Negative (11/22/22 7:19 PM) Normal Negative [facility] UA Auto SS pH (U) 6.0 *NA* (11/22/22 7:19 PM) Invalid Interpretation Code 5.0 - 9.0 [facility] UA Auto SS Protein (U) [Mass/Vol] Negative (11/22/22 7:19 PM) Normal Negative [facility] UA Auto SS Specific gravity (U) [Rel density] 1.025 *NA* (11/22/22 7:19 PM) Invalid Interpretation Code 1.005 - 1.030 [facility] UA Auto SS UA Spec Desc Clean Catch (11/22/22 7:19 PM) Normal [facility] UA Auto SS Urobilinogen Qn (U) 0.3758891 {Elba'U}/dL Normal 0.0 - 1.0 EU/dL FT UA Auto SS WBC Auto Ql (U) Negative (11/22/22 7:19 PM) Normal Negative [facility] UA Auto SS WBC LM.HPF (Urine sed) [#/Area] 0-5 /HPF Normal 0-5/HPF [facility] UA Auto SS eGFRon 11-22-2022 GFR/1.73 sq M.predicted among non-blacks MDRD (S/P/Bld) [Vol rate/Area] 76 mL/min/1.73 m2 Normal >=59 [facility] Comment on above: Order Comment: Order added by Discern Expert. Result Comment: Supervisor [employer]eling [employer] fahad kidney disease could be indicated at eGFR's of less than 60 mL/min/1.73m2. Kidney failure is indicated at less than 15 mL/min/1.73m2. Performed By: #### 2 346002, 1058227, 0008922, 52411172, 2121221, 4026725 #### [facility] [address] [place] [address] CT HEAD WO CONon 08-14-2022 CT HEAD [...] ROC ARNOLD Date: 2022-08-13 22:12 Normal [facility] CBC AUTO DIFFon 08-13-2022 BASO # 0.0 103/ul Normal 0.0-0.1 [facility] Comment on above: Performed By: #### C BC ####[facility] [id number] [place] [address]Dr. Douglas Tucker Basophils/100 WBC (Bld) 0.3 % Normal 0.2-2.0 [facility] Comment on above: Performed By: #### C BC ####[facility] [address] [place] [address]Dr. Douglas Tucker EO # 0.0 103/ul Normal 0.0-0.7 [facility] Comment on above: Performed By: #### C BC ####[facility] [address] [place] [address]Dr. Douglas Tucker Eosinophils/100 WBC (Bld) 0.1 % Critically low 0.9-7.0 [facility] Comment on above: Performed By: #### C BC ####[facility] [address] [place] [address]Dr. Douglas Tucker Erythrocyte distribution width (RBC) [Ratio] 12.3 % Normal 11.0-15.0 [facility] Comment on above: Performed By: #### C BC ####[facility] [address] [place], [place] [address]Dr. Douglas Tucker Hematocrit (Bld) [Volume fraction] 41.6 % Normal 36.0-48.0 [facility] Comment on above: Performed By: #### C BC ####[facility] [address] [place] [address]Dr. Douglas Tucker Hemoglobin (Bld) [Mass/Vol] 13.6 g/dL Normal 12.0-16.0 [facility] Comment on above: Performed By: #### C BC ####[facility] [address] [place] [address]Dr. Douglas Tucker IG # 0.05 10e3/ul Critically high 0.00-0.03 [facility] Comment on above: Performed By: #### C BC ####[facility] [id number] [place] [address]Dr. Douglas Tucker IG % 0.3 % Normal 0.0-0.5 [facility] Comment on above: Performed By: #### C BC ####[facility] [id number] [place], [place] [address]Dr. Douglas Tucker LYMPH # 3.0 103/ul Normal 1.2-3.8 [facility] Comment on above: Performed By: #### C BC ####[facility] [address] [place], [place] [address]Dr. Douglas Tucker Lymphocytes/100 WBC (Bld) 20.9 % Normal 20.5-60.0 [facility] Comment on above: Performed By: #### C BC ####[facility] Xp[address] [place], [place] [address]Dr. Douglas Tucker MANUAL DIFF REQ NO Normal [facility] Comment on above: Performed By: #### C BC ####[facility] [address] [place], [place] [address]Dr. Douglas Tucker MCH (RBC) [Entitic mass] 31.7 pg Normal 26.7-34.0 [facility] Comment on above: Performed By: #### C BC ####[facility] [address] [place], [place] [address]Dr. Douglas Tucker MCHC (RBC) [Mass/Vol] 32.7 g/dL Normal 29.9-35.2 [facility] Comment on above: Performed By: #### C BC ####[facility] [address] [place] [id number]. Douglas Tucker MCV (RBC) [Entitic vol] 97.0 fL Normal 81.0-99.0 [facility] Comment on above: Performed By: #### C BC ####[facility] [address] [place] [id number]. Douglas Tucker MONO # 1.0 103/ul Critically high 0.3-0.8 [facility] Comment on above: Performed By: #### C BC ####[facility] [address] [place], [place] [address]Dr. Douglas Tucker Monocytes/100 WBC (Bld) 7.2 % Normal 1.7-12.0 [facility] Comment on above: Performed By: #### C BC ####[facility] [address] [place], [place] [address]Dr. Douglas Tucker NEUT # 10.2 103/ul Critically high 1.4-6.5 [facility] Comment on above: Performed By: #### C BC ####[facility] [address] [place], [place] [address]Dr. Douglas Tucker Neutrophils/100 WBC (Bld) 71.2 % Normal 43.0-75.0 [facility] Comment on above: Performed By: #### C BC ####[facility] [address] [place], [place] [address]Dr. Douglas Tucker Platelet mean volume (Bld) [Entitic vol] 10.6 fL Normal 9.5-13.5 [facility] Comment on above: Performed By: #### C BC ####[facility] [address] [place], [place] [address]Dr. Douglas Tucker PLT 229 103/ul Normal 150-450 [facility] Comment on above: Performed By: #### C BC ####[facility] [address] [place], [place] [address]Dr. Douglas Tucker RBC 4.29 106/ul Normal 4.20-5.40 [facility] Comment on above: Performed By: #### C BC ####[facility] [address] [place] [id number]. Douglas Tucker WBC 14.4 103/ul Critically high 4.0-11.0 [facility] Comment on above: Performed By: #### C BC ####[facility] [address] [place] [id number]. Douglas Tucker PROF CHEM 8 (BAS METB)on Anion gap [Moles/Vol] 14.6 mmol/L Normal Th [facility] Comment on above: Performed By: #### T SH, BMP #### [facility] [address] [address] [address] Douglas Tucker Calcium [Mass/Vol] 9.0 mg/dL Normal 8.5-10.1 [facility] Comment on above: Performed By: #### T SH, BMP #### [facility] [address] [address] [address] Douglas Tucker Chloride [Moles/Vol] 107 mmol/L Normal 98-107 [facility] Comment on above: Performed By: #### T SH, BMP #### [facility] [address] [address] [address] Douglas Tucker CO2 [Moles/Vol] 23.2 mmol/L Normal 21.0-32.0 [facility] Comment on above: Performed By: #### T SH, BMP #### [facility] [address] [address] [address] Douglas Tucker Creatinine [Mass/Vol] 0.88 mg/dL Normal 0.55-1.02 [facility] Comment on above: Performed By: #### T SH, BMP #### [facility] [address] [address] [address] Douglas Tucker EGFR-AF CHILEAN >60 Normal >=60 [facility] Comment on above: Performed By: #### T SH, BMP #### [facility] [address] [address] [address] Douglas Tucker EGFR-NON AF CHILEAN >60 Normal >=60 [facility] Comment on above: Performed By: #### T SH, BMP #### [facility] [address] [place] [address] Dr. Douglas Tucker Glucose [Mass/Vol] 100 mg/dL Normal 74-106 [facility] Comment on above: Performed By: #### T SH, BMP #### [facility] [address] [place] [address] Dr. Douglas Tucker Potassium [Moles/Vol] 3.8 mmol/L Normal 3.5-5.1 [facility] Comment on above: Performed By: #### T SH, BMP #### [facility] [address] [place] [address] Dr. Douglas Tucker Sodium [Moles/Vol] 141 mmol/L Normal 136-145 [facility] Comment on above: Performed By: #### T SH, BMP #### [facility] [address] [place] [address] Dr. Douglas Tucker Urea nitrogen [Mass/Vol] 10.0 mg/dL Normal 7.0-18.0 [facility] Comment on above: Performed By: #### T SH, BMP #### [facility] [address] [place] [address] Dr. Douglas Tucker Urea nitrogen/Creatinine [Mass ratio] 11.4 mg/mg Normal [facility] Comment on above: Performed By: #### T SH, BMP #### [facility] [address] [place] [address] Dr. Douglas Tucker TSHon 08-13-2022 TSH 0.730 uIU/mL Normal 0.358-3.740 [facility] Comment on above: Performed By: #### T SH, BMP #### [facility] [address] [place] [address] Dr. Douglas Tucker Automated erythrocytes count in urine sediment (number/area)Ordered By: Mario Glasgow on 06-14-2022 RBC Auto (Urine sed) [#/Area] None seen [HPF] 0-4 [facility] Automated leukocytes count i n urine sediment (number/area)Ordered By: Mario Glasgow on 06-14-2022 WBC Auto (Urine sed) [#/Area] 20-49 [HPF] 0-4 [facility] Bilirubin Test strip Ql (U)O rdered By: Mario Bryangles on 06-14-2022 Bilirubin Ql (U) Negative Negative [facility] Color Auto (U)Ordered By: Se fer Bryangles on 06-14-2022 Color (U) Yellow Yellow [facility] Ketones Auto test strip (U) [Mass/Vol]Ordered By: Mario Bryangles on 06-14-2022 Ketones (U) [Mass/Vol] Negative Negative [facility] - UrinalysisOrder ed By: Mario Bryangles on 06-14-2022 Hyaline casts LM Ql (Urine sed) 0-8 [LPF] 0-8 [facility] Nitrite Test strip Ql (U)Ord ered By: Mario Bryangles on 06-14-2022 Nitrite Ql (U) Negative Negative [facility] Protein Auto test strip (U) [Mass/Vol]Ordered By: Mario Bryangles on 06-14-2022 Protein (U) [Mass/Vol] Negative Negative [facility] Specific gravity Auto test s trip (U) [Rel density]Ordered By: Mario Glasgow on 06-14-2022 Specific gravity (U) [Rel density] 1.013 1.001-1.030 [facility] Squamous epithelial cells de tection in urine sediment by light microscopyOrdered By: Mario Pee on 06-14-2022 Epithelial cells.squamous LM Ql (Urine sed) 5-9 [HPF] 0-2 [facility] Urine bacteria detection by automated methodOrdered By: Mario Pee on 06-14-2022 Bacteria Auto Ql (U) 2+ None Seen [facility] Urine clarity by refractomet ry automatedOrdered By: Mario Pee on 06-14-2022 Clarity Refractometry automated (U) Cloudy Clear [facility] Urine culture routineOrdered By: Mario Glasgow on 06-14-2022 Bacteria identified Cx Nom (U) Strep. agalactiae Grp B [facility] Urine glucose measurement by automated test strip (mass/volume)Ordered By: Mario Pee on 06-14-2022 Glucose Auto test strip (U) [Mass/Vol] Normal mg/dL Normal [facility] Urine hemoglobin detection b y automated test stripOrdered By: Mario Glasgow on 06-14-2022 Hemoglobin Auto test strip Ql (U) Negative Negative [facility] Urine leukocyte esterase det ection by automated test stripOrdered By: Mario Bryangles on 06-14-2022 Leukocyte esterase Auto test strip Ql (U) 3+ Negative [facility] Urobilinogen Auto test strip (U) [Mass/Vol]Ordered By: Mario Bryangles on 06-14-2022 Urobilinogen (U) [Mass/Vol] Normal mg/dL Normal [facility] pH Auto test strip (U)Ordere d By: Mariosimi Glasgow on 06-14-2022 pH (U) 5.5 [pH] 5.0-9.0 [facility] HCG ( test) IA.rapi d Ql (U)Ordered By: Figueroa Galindo on 05-02-2022 HCG ( test) Ql (U) Negative [facility] CULTURE URINEon 04-25-2022 CULTURE URINE Culture Observations : MODERATE GROWTH OF MIXED GENITAL CRICKET. NO POTENTIAL PATHOGENS SEEN. Normal [facility] Comment on above: Performed By: #### U RCX ####[facility] [address] [address]Dr. Douglas Tucker ER URINE PROFILEon 3 Bilirubin Ql (U) Negative Normal NEGATIVE [facility] Comment on above: Performed By: #### P BLAINE GOODWIN ERUR #### [facility] [address] [address] [address] Douglas Tucker Clarity (U) SL CLOUDY Abnormal CLEAR [facility] Comment on above: Performed By: #### P BLAINE GOODWIN ERUR #### [facility] [address] [address] [address] Douglas Tucker Color (U) YELLOW Normal YELLOW [facility] Comment on above: Performed By: #### P BLAINE GOODWIN ERUR #### [facility] [address] [address] [address] Douglas GIRON A micrscopic examina tion will be performed if indicated. Normal [facility] Comment on above: Performed By: #### P REGU, UMICRO, ERUR #### [facility] [address] [address] [address] Douglas Tucker Glucose Ql (U) Negative Normal NEGATIVE [facility] Comment on above: Performed By: #### P REGU, UMICRO, ERUR #### [facility] [address] [address] [address] Douglas Tucker Hemoglobin Ql (U) SMALL Abnormal NEGATIVE [facility] Comment on above: Performed By: #### P REGU, UMICRO, ERUR #### [facility] [address] [place] [address] Dr. Douglas Tucker Ketones Ql (U) Negative Normal NEGATIVE [facility] Comment on above: Performed By: #### P REGU UMICRO, ERUR #### [facility] [address] [address] [address] Douglas Tucker LEUKOCYTES Negative Normal NEGATIVE [facility] Comment on above: Performed By: #### P REGU, UMICRO, ERUR #### [facility] [address] [place] [address] Dr. Douglas Tucker Nitrite Ql (U) Negative Normal NEGATIVE [facility] Comment on above: Performed By: #### P REGU, UMICRO, ERUR #### [facility] [address] [address] [address] Douglas Tucker pH (U) 6.0 [pH] Normal 5-9 [facility] Comment on above: Performed By: #### P REGU, UMICRO, ERUR #### [facility] [address] [address] [address] Douglas Tucker SPEC GRAVITY >=1.030 Abnormal 1.005-<=1.0 25 [facility] Comment on above: Performed By: #### P REGU, UMICRO, ERUR #### [facility] [address] [place] [address] Dr. Douglas Tucker UA PROTEIN TRACE Normal NEGATIVE/ TRACE [facility] Comment on above: Performed By: #### P REGU, UMICRO, ERUR #### [facility] [address] [place] [address] Dr. Douglas Tucker UR MICRO IND INDICATED Normal [facility] Comment on above: Performed By: #### P REGU, UMICRO, ERUR #### [facility] [address] [place] [address] Dr. Douglas Tucker Urobilinogen Qn (U) 0.2 {Elba'U}/dL Normal 0.2 - 1. 0 [facility] Comment on above: Performed By: #### P REGU UMICRO, ERUR #### [facility] [address] [place] [address] Dr. Douglas Tucker URon 04-25-2022 , QUAL Negative Normal NEGATIVE [facility] Comment on above: Performed By: #### P REGU UMICRO, ERUR #### [facility] [address] [place] [address] Dr. Douglas Tucker URINE MICROSCOPIC ONLYon BACTERIA MODERATE Abnormal NONE SEEN [facility] Comment on above: Performed By: #### P REGU UMICRO, ERUR #### [facility] [address] [place] [address] Dr. Douglas Tucker Bacteria identified Cx Nom (U) INDICATED Normal [facility] Comment on above: Performed By: #### P REGU UMICRO, ERUR #### [facility] [address] [place] [address] Dr. Douglas Tucker CAST NONE SEEN Normal NONE SEEN [facility] Comment on above: Performed By: #### P REGU, UMICRO, ERUR #### [facility] [address] [place] [address] Dr. Douglas Tucker Crystals LM Nom (Urine sed) NONE SEEN Normal NONE SEEN [facility] Comment on above: Performed By: #### P REGU, UMICRO, ERUR #### [facility] [address] [place] [address] Dr. Douglas Tucker Epithelial cells LM Ql (Urine sed) MODERATE Abnormal NONE SEEN /RARE [facility] Comment on above: Performed By: #### P REGU, UMICRO, ERUR #### [facility] [address] [address] [address] Douglas Tucker MUCOUS NONE SEEN Normal NONE SEEN [facility] Comment on above: Performed By: #### P REGU, UMICRO, ERUR #### [facility] [address] [address] [address] Douglas Tucker RBC 2-5 Abnormal 0-2 [facility] Comment on above: Performed By: #### P REGU, UMICRO, ERUR #### [facility] [address] [address] [address] Douglas Tucker WBC 0-2 Abnormal NONE SEEN [facility] Comment on above: Performed By: #### P REGU, UMICRO, ERUR #### [facility] [address] [address] [address] Doulgas Tucker COVID-19 SOFIAOrdered By: Leslie Garcia on 04-23-2022 SARS-CoV+SARS-CoV-2 (COVID-19) Ag IA.rapid Ql (Resp) Negative Negative [facility] Comment on above: This is a duplicate Ruth SARS Antigen (LILLY) result to be used for statistical tracking purpose only. No Panel InformationOrdered By: Rell Garcia on 04-23-2022 SARS Antigen (LFIA) [facility] Activated partial thrombopla stin time (aPTT) in platelet poor plasma by coagulation aOrdered By: Rell Garcia on 04-10-2022 aPTT Coag (PPP) [Time] 31.6 s 25.1-36.5 [facility] Albumin [Mass/volume] in Ser um or PlasmaOrdered By: Rell Garcia on 04-10-2022 Albumin [Mass/Vol] 4.4 g/dL 3.2-5.5 [facility] Automated erythrocytes count in urine sediment (number/area)Ordered By: Rell Garcia on 04-10-2022 RBC Auto (Urine sed) [#/Area] None seen [HPF] 0-4 [facility] Automated leukocytes count i n urine sediment (number/area)Ordered By: Rell Garcia on 04-10-2022 WBC Auto (Urine sed) [#/Area] 20-49 [HPF] 0-4 [facility] Automated urine hyaline cast s count (number/volume)Ordered By: Rell Garcia on 04-10-2022 Hyaline casts Auto (U) [#/Vol] None seen [LPF] 0-1 [facility] Basophils Auto (Bld) [#/Vol] Ordered By: Rell Garcia on 04-10-2022 Basophils (Bld) [#/Vol] 0.0 10*3/uL 0.0-0.2 [facility] Basophils/100 WBC Auto (Bld) Ordered By: Rell Garcia on 04-10-2022 Basophils/100 WBC (Bld) 0.4 % . [facility] Bilirubin Test strip Ql (U)O rdered By: Rell Garcia on 04-10-2022 Bilirubin Ql (U) Negative Negative [facility] Casts typing in urine sedime nt by light microscopyOrdered By: Rell Garcia on 04-10-2022 Casts LM Nom (Urine sed) None seen [LPF] None Seen [facility] Color Auto (U)Ordered By: Leslie Garcia on 04-10-2022 Color (U) Yellow Yellow [facility] Creatinine and Glomerular fi ltration rate.predicted panel (S/P/Bld)Ordered By: Rell Garcia on 04-10-2022 Creatinine [Mass/Vol] 0.80 mg/dL 0.44-1.03 [facility] Eosinophils Auto (Bld) [#/Vo l]Ordered By: Rell Garcia on 04-10-2022 Eosinophils (Bld) [#/Vol] 0.3 10*3/uL 0.0-0.45 [facility] Eosinophils/100 WBC Auto (Bl d)Ordered By: Rell Garcia on 04-10-2022 Eosinophils/100 WBC (Bld) 3.6 % . [facility] Erythrocyte distribution wid th Auto (RBC) [Ratio]Ordered By: Rell Garcia on 04-10-2022 Erythrocyte distribution width (RBC) [Ratio] 13.0 % 11.9-15.3 [facility] Estimated glomerular filtrat ion rate (GFR) non- AmericanOrdered By: Rell Garcia on 04-10-2022 GFR/1.73 sq M.predicted among non-blacks MDRD (S/P/Bld) [Vol rate/Area] > 60 mL/Min [facility] Globulin Calc (S) [Mass/Vol] Ordered By: Rell Garcia on 04-10-2022 Globulin (S) [Mass/Vol] 3.1 g/dL [facility] Hematocrit Auto (Bld) [Volum e fraction]Ordered By: eRll Garcia on 04-10-2022 Hematocrit (Bld) [Volume fraction] 44.2 % 34.0-46.4 [facility] Hemoglobin [Mass/volume] in BloodOrdered By: Rell Garcia on 04-10-2022 Hemoglobin (Bld) [Mass/Vol] 14.8 g/dL 11.8-15.4 [facility] Ketones Auto test strip (U) [Mass/Vol]Ordered By: Rell Garcia on 04-10-2022 Ketones (U) [Mass/Vol] Negative Negative [facility] - CoagulationOrde red By: Rell Garcia on 04-10-2022 PT Coag (PPP) [Time] 10.8 s 9.0-12.9 [facility] Leukocytes [#/volume] correc armaan for nucleated erythrocytes in Blood by Automated counOrdered By: Rell Garcia on 04-10-2022 WBC corrected for nucl RBC Auto (Bld) [#/Vol] 8.6 10*3/uL 3.8-11.6 [facility] Lymphocytes Auto (Bld) [#/Vo l]Ordered By: Rell Garcia on 04-10-2022 Lymphocytes (Bld) [#/Vol] 3.0 10*3/uL 1.00-4.8 [facility] Lymphocytes/100 WBC Auto (Bl d)Ordered By: Rell Garcia on 04-10-2022 Lymphocytes/100 WBC (Bld) 35.3 % . [facility] MCH Auto (RBC) [Entitic mass ]Ordered By: Rell Garcia on 04-10-2022 MCH (RBC) [Entitic mass] 31.8 pg 24.7-34.3 [facility] MCHC Auto (RBC) [Mass/Vol]Or dered By: Rell Garcia on 04-10-2022 MCHC (RBC) [Mass/Vol] 33.5 g/dL 32.0-35.0 [facility] MCV Auto (RBC) [Entitic vol] Ordered By: Rell Garcia on 04-10-2022 MCV (RBC) [Entitic vol] 95.0 fL 80-100 [facility] Monocytes Auto (Bld) [#/Vol] Ordered By: Rell Garcia on 04-10-2022 Monocytes (Bld) [#/Vol] 0.6 10*3/uL 0.0-0.8 [facility] Monocytes/100 WBC Auto (Bld) Ordered By: Rell Garcia on 04-10-2022 Monocytes/100 WBC (Bld) 7.0 % . [facility] Neutrophils Auto (Bld) [#/Vo l]Ordered By: Rell Garcia on 04-10-2022 Neutrophils (Bld) [#/Vol] 4.6 10*3/uL 1.8-7.7 [facility] Neutrophils/100 WBC Auto (Bl d)Ordered By: Rell Garcia on 04-10-2022 Neutrophils/100 WBC (Bld) 53.7 % . [facility] Nitrite Test strip Ql (U)Ord ered By: Rell Garcia on 04-10-2022 Nitrite Ql (U) Negative Negative [facility] No Panel InformationOrdered By: Rell Garcia on 04-10-2022 Estimated GFR () > 60 mL/Min [facility] Comment on above: GFR estimated refere nce range: According to KDOQI guidelines, <60 ml/min/1.73m2 is sufficient to diagnose a patient with chronic kidney disease. Pharmacy Creatinine Clearance (Chem N/A [facility] Nucleated erythrocytes [Pres ence] in Blood by Automated countOrdered By: Rell Garcia on 04-10-2022 Nucleated RBC Auto Ql (Bld) 0.1 /100{WBC} 0-0.5 [facility] Platelet mean volume Auto (B ld) [Entitic vol]Ordered By: Rell Garcia on 04-10-2022 Platelet mean volume (Bld) [Entitic vol] 9.1 fL 6.3-10.7 [facility] Platelet poor plasma interna tional normalized ratio (INR) by coagulation assay (relatOrdered By: Rell Garcia on 04-10-2022 INR Coag (PPP) [Relative time] 1.0 {INR} [facility] Comment on above: INR Therapeutic Rang [...] 04-10-2022 Platelets (Bld) [#/Vol] 192 10*3/uL 150-450 [facility] Protein Auto test strip (U) [Mass/Vol]Ordered By: Rell Garcia on 04-10-2022 Protein (U) [Mass/Vol] Negative Negative [facility] Protein [Mass/volume] in Ser um or PlasmaOrdered By: Rell Garcia on 04-10-2022 Protein [Mass/Vol] 7.5 g/dL 6.1-7.9 [facility] RBC Auto (Bld) [#/Vol]Ordere d By: Rell Garcia on 04-10-2022 RBC (Bld) [#/Vol] 4.65 10*6/uL 3.60-5.00 [facility] Serum or plasma alanine venegas otransferase measurement without P-5'-P (enzymatic activiOrdered By: Rell Garcia on 04-10-2022 ALT No additional P-5'-P [Catalytic activity/Vol] 19 U/L 10-60 [facility] Serum or plasma albumin/glob ulin mass ratioOrdered By: Rell Garcia on 04-10-2022 Albumin/Globulin [Mass ratio] 1.4 {ratio} [facility] Serum or plasma alkaline molina sphatase measurement (enzymatic activity/volume)Ordered By: Rell Garcia on 04-10-2022 ALP [Catalytic activity/Vol] 47 U/L 32-92 [facility] Serum or plasma anion gap de terminationOrdered By: Rell Garcia on 04-10-2022 Anion gap [Moles/Vol] 13.2 mmol/L 6.0-15.0 [facility] Serum or plasma aspartate am inotransferase measurement (enzymatic activity/volume)Ordered By: Rell Garcia on 04-10-2022 AST [Catalytic activity/Vol] 18 U/L 10-42 [facility] Serum or plasma calcium liam urement (mass/volume)Ordered By: Rell Garcia on 04-10-2022 Calcium [Mass/Vol] 9.5 mg/dL 8.2-10.2 [facility] Serum or plasma chloride fransisca surement (moles/volume)Ordered By: Rell Garcia on 04-10-2022 Chloride [Moles/Vol] 106 mmol/L 95-114 [facility] Serum or plasma glucose liam urement (mass/volume)Ordered By: Rell Garcia on 04-10-2022 Glucose [Mass/Vol] 88 mg/dL 70-100 [facility] Comment on above: ADA recommended refe rence rangeRandom Glucose Reference Range is dependent on time and content of last meal. Glucose of more than 200 mg/dL in a nonstressed, ambulatory subject supports the diagnosis of Diabetes Mellitus. Serum or plasma potassium me asurement (moles/volume)Ordered By: Rell Garcia on 04-10-2022 Potassium [Moles/Vol] 4.1 mmol/L 3.5-5.1 [facility] Serum or plasma sodium measu rement (moles/volume)Ordered By: Rell Garcia on 04-10-2022 Sodium [Moles/Vol] 134 mmol/L 136-146 [facility] Serum or plasma total biliru bin measurement (mass/volume)Ordered By: Rell Garcia on 04-10-2022 Bilirubin [Mass/Vol] 0.7 mg/dL 0.3-1.2 [facility] Serum or plasma total carbon dioxide measurement (moles/volume)Ordered By: Rell Garcia on 04-10-2022 CO2 [Moles/Vol] 18.9 mmol/L 22.0-30.0 [facility] Serum or plasma urea nitroge n measurement (mass/volume)Ordered By: Rell Garcia on 04-10-2022 Urea nitrogen [Mass/Vol] 14 mg/dL - [facility] Specific gravity Auto test s trip (U) [Rel density]Ordered By: Rell Garcia on 04-10-2022 Specific gravity (U) [Rel density] 1.016 1.001-1.030 [facility] Squamous epithelial cells de tection in urine sediment by light microscopyOrdered By: Rell Garcia on 04-10-2022 Epithelial cells.squamous LM Ql (Urine sed) 10-19 [HPF] 0-2 [facility] Urine bacteria detection by automated methodOrdered By: Rell Garcia on 04-10-2022 Bacteria Auto Ql (U) 2+ None Seen [facility] Urine clarity by refractomet ry automatedOrdered By: Rell Garcia on 04-10-2022 Clarity Refractometry automated (U) Cloudy Clear [facility] Urine culture routineOrdered By: Rell Garcia on 04-10-2022 Bacteria identified Cx Nom (U) 2 Days [facility] Urine glucose measurement by automated test strip (mass/volume)Ordered By: Rell Garcia on 04-10-2022 Glucose Auto test strip (U) [Mass/Vol] Normal mg/dL Normal [facility] Urine hemoglobin detection b y automated test stripOrdered By: Rell Garcia on 04-10-2022 Hemoglobin Auto test strip Ql (U) Negative Negative [facility] Urine leukocyte esterase det ection by automated test stripOrdered By: Rell Garcia on 04-10-2022 Leukocyte esterase Auto test strip Ql (U) 3+ Negative [facility] Urobilinogen Auto test strip (U) [Mass/Vol]Ordered By: Rell Garcia on 04-10-2022 Urobilinogen (U) [Mass/Vol] Normal mg/dL Normal [facility] WBC Auto (Bld) [#/Vol]Ordere d By: Rell Garcia on 04-10-2022 WBC (Bld) [#/Vol] 8.6 10*3/uL 3.8-11.6 [facility] pH Auto test strip (U)Ordere d By: Rell Garcia on 04-10-2022 pH (U) 5.5 [pH] 5.0-9.0 [facility] XR ANKLE RT MIN 3 VIEWSon [...] by: LIZZIE YU Date: 2022-03-28 22:01 Normal [facility] XR SHOULDER LT 2V or >on [...] by: JASS GRISSOM Date: 2022-02-10 21:41 Normal [facility] CBC AUTO DIFFon 01-28-2022 BASO # 0.0 103/ul Normal 0.0-0.1 [facility] Comment on above: Performed By: #### C BC ####[facility] [address] [place] [address]Dr. Douglas Tucker Basophils/100 WBC (Bld) 0.7 % Normal 0.2-2.0 [facility] Comment on above: Performed By: #### C BC ####[facility] C[address]lkgoffr[address] [place] [address]DrHernandez Tucker EO # 0.1 103/ul Normal 0.0-0.7 [facility] Comment on above: Performed By: #### C BC ####[facility] Ykcqssfxtb[address] [place] [address]Dr. Douglas Tucker Eosinophils/100 WBC (Bld) 2.2 % Normal 0.9-7.0 [facility] Comment on above: Performed By: #### C BC ####[facility] [address] [place], [place] [address]Dr. Douglas Tucker Erythrocyte distribution width (RBC) [Ratio] 12.0 % Normal 11.0-15.0 [facility] Comment on above: Performed By: #### C BC ####[facility] Xaczoroeug[address] [place], [place] [address]Dr. Douglas Tucker Hematocrit (Bld) [Volume fraction] 41.3 % Normal 36.0-48.0 [facility] Comment on above: Performed By: #### C BC ####[facility] Jtyiialjvw[address] [place], [place] [address]Dr. Douglas Tucker Hemoglobin (Bld) [Mass/Vol] 13.7 g/dL Normal 12.0-16.0 [facility] Comment on above: Performed By: #### C BC ####[facility] V[address]lgrpoey[address] [place], [place] [address]Dr. Douglas Tucker IG # 0.01 10e3/ul Normal 0.00-0.03 [facility] Comment on above: Performed By: #### C BC ####[facility] Ikpwpshjgo[address] [place], [place] [address]Dr. Douglas Tucker IG % 0.2 % Normal 0.0-0.5 [facility] Comment on above: Performed By: #### C BC ####[facility] Eyzoaqbfto[address] [place], [place] [address]Dr. Douglas Tucker LYMPH # 2.1 103/ul Normal 1.2-3.8 [facility] Comment on above: Performed By: #### C BC ####[facility] Swurcslqef[address] [place], [place] [address]Dr. Douglas Tucker Lymphocytes/100 WBC (Bld) 38.5 % Normal 20.5-60.0 [facility] Comment on above: Performed By: #### C BC ####[facility] Ttanpophfe[address] [place] [address]Dr. Douglas Garrett MANUAL DIFF REQ NO Normal [facility] Comment on above: Performed By: #### C BC ####[facility] Cmonckribv[address] [place] [address]Dr. Douglas Tucker MCH (RBC) [Entitic mass] 31.9 pg Normal 26.7-34.0 [facility] Comment on above: Performed By: #### C BC ####[facility] Riytvrsivs[address] [place] [address]Dr. Douglas Garrett MCHC (RBC) [Mass/Vol] 33.2 g/dL Normal 29.9-35.2 [facility] Comment on above: Performed By: #### C BC ####[facility] Cfxhzdpzfr[address] [place] [address]Dr. Umuana Tucker MCV (RBC) [Entitic vol] 96.0 fL Normal 81.0-99.0 [facility] Comment on above: Performed By: #### C BC ####[facility] Qbgpedfrck[address] [place], [place] [address]Dr. Douglas Garrett MONO # 0.4 103/ul Normal 0.3-0.8 [facility] Comment on above: Performed By: #### C BC ####[facility] Ljgnvvcqsy[address] [place], [place] [address]Dr. Umuana Tucker Monocytes/100 WBC (Bld) 7.8 % Normal 1.7-12.0 [facility] Comment on above: Performed By: #### C BC ####[facility] Wejzyabguw[address] [place] [address]Dr. Douglas Tucker NEUT # 2.8 103/ul Normal 1.4-6.5 [facility] Comment on above: Performed By: #### C BC ####[facility] Bdskqgqtsn[address] [place], [place] [address]Dr. Douglas Tucker Neutrophils/100 WBC (Bld) 50.6 % Normal 43.0-75.0 [facility] Comment on above: Performed By: #### C BC ####[facility] Jnfvlkggyt[address] [place] [address]Dr. Douglas Tucker Platelet mean volume (Bld) [Entitic vol] 10.7 fL Normal 9.5-13.5 [facility] Comment on above: Performed By: #### C BC ####[facility] Irmejcjbyy[address] [place] [address]Dr. Douglas Tucker PLT 189 103/ul Normal 150-450 [facility] Comment on above: Performed By: #### C BC ####[facility] Dquwnmvjuy76[address] [place] [address]Dr. Douglas Tucker RBC 4.30 106/ul Normal 4.20-5.40 [facility] Comment on above: Performed By: #### C BC ####[facility] Lmvyncnbji[address] [place], [place] [address]Dr. Douglas Tucker WBC 5.5 103/ul Normal 4.0-11.0 [facility] Comment on above: Performed By: #### C BC ####[facility] Yltlwujeul[address] [place], [place] [address]Dr. Douglas Tucker CULTURE URINEon 01-28-2022 CULTURE URINE Culture Observations : MODERATE GROWTH OF MIXED GENITAL CRICKET. NO POTENTIAL PATHOGENS SEEN. Normal [facility] Comment on above: Performed By: #### U RCX ####[facility] Dmprecykkd[address] [place] [address]Dr. Douglas Tucker ER URINE PROFILEon 2 Bilirubin Ql (U) Negative Normal NEGATIVE [facility] Comment on above: Performed By: #### U MICRO, ERUR #### [facility] [address] [place] [address] Dr. Douglas Tucker Clarity (U) CLEAR Normal CLEAR [facility] Comment on above: Performed By: #### U MICRO, ERUR #### [facility] [address] [place] [address] Dr. Douglas Tucker Color (U) LT. YELLOW Normal YELLOW [facility] Comment on above: Performed By: #### U MICRO, ERUR #### [facility] [address] [place] [address] Dr. Yilan Tucker ERUAHD A micrscopic examina tion will be performed if indicated. Normal [facility] Comment on above: Performed By: #### U MICRO, ERUR #### [facility] [address] [address] [address] Douglas Tucker Glucose Ql (U) Negative Normal NEGATIVE [facility] Comment on above: Performed By: #### U MICRO, ERUR #### [facility] [address] [address] [address] Douglas Tucker Hemoglobin Ql (U) TRACE-INTACT Abnormal NEGATIVE [facility] Comment on above: Performed By: #### U MICRO, ERUR #### [facility] [address] [address] [address] Douglas Tucker Ketones Ql (U) Negative Normal NEGATIVE [facility] Comment on above: Performed By: #### U MICRO, ERUR #### [facility] [address] [place] [address] Dr. Douglas Tucker LEUKOCYTES TRACE Abnormal NEGATIVE [facility] Comment on above: Performed By: #### U MICRO, ERUR #### [facility] [address] [place] [address] Dr. Douglas Tucker Nitrite Ql (U) Negative Normal NEGATIVE [facility] Comment on above: Performed By: #### U MICRO, ERUR #### [facility] [address] [place] [address] Dr. Douglas Tucker pH (U) 6.5 [pH] Normal 5-9 [facility] Comment on above: Performed By: #### U MICRO, ERUR #### [facility] [address] [place] [address] Dr. Douglas Tucker SPEC GRAVITY 1.020 Normal 1.005-<=1.0 25 [facility] Comment on above: Performed By: #### U MICRO, ERUR #### [facility] [address] [place] [address] Dr. Douglas Tucker UA PROTEIN Negative Normal NEGATIVE/ TRACE [facility] Comment on above: Performed By: #### U MICRO, ERUR #### [facility] [address] [place] [address] Dr. Douglas Tucker UR MICRO IND INDICATED Normal [facility] Comment on above: Performed By: #### U MICRO, ERUR #### [facility] [address] [address] [address] Douglas Tucker Urobilinogen Qn (U) 0.2 {Elba'U}/dL Normal 0.2 - 1. 0 [facility] Comment on above: Performed By: #### U MICRO, ERUR #### [facility] [address] [address] [address] Douglas Tucker PROF 14(COMP METB)on 022 Albumin [Mass/Vol] 3.9 g/dL Normal 3.4-5.0 [facility] Comment on above: Performed By: #### C MP ####[facility] E[address]ados[address] [place] [address]DrHernandez Tucker Albumin/Globulin [Mass ratio] 1.1 {ratio} Normal [facility] Comment on above: Performed By: #### C MP ####[facility] Dxkgjoglfx[address] [place] [address]Dr. Douglas Tucker ALP [Catalytic activity/Vol] 52 U/L Normal 46-116 [facility] Comment on above: Performed By: #### C MP ####[facility] Nibopfjsio[address] [place] [address]Dr. Douglas Tucker ALT [Catalytic activity/Vol] 31 U/L Normal 14-59 [facility] Comment on above: Performed By: #### C MP ####[facility] Sdenzvhipt[address] [place] [address]DrHernandez Tucker Anion gap [Moles/Vol] 9.6 mmol/L Normal [facility] Comment on above: Performed By: #### C MP ####[facility] Ponvpiypgi[address] [place] [address]DrHernandez Tucker AST [Catalytic activity/Vol] 15 U/L Normal 15-37 [facility] Comment on above: Performed By: #### C MP ####[facility] Rzkjfqpfpj89[address] [place] [address]DrHernandez Tucker Bilirubin [Mass/Vol] 0.3 mg/dL Normal 0.2-1.0 [facility] Comment on above: Performed By: #### C MP ####[facility] [address]cp[address] [place], [place] [address]Dr. Douglas Tucker Calcium [Mass/Vol] 8.6 mg/dL Normal 8.5-10.1 [facility] Comment on above: Performed By: #### C MP ####[facility] [address]zxd[address] [place], [place] [address]Dr. Douglas Tucker Chloride [Moles/Vol] 107 mmol/L Normal 98-107 [facility] Comment on above: Performed By: #### C MP ####[facility] Uayktvcwne[address] [place], [place] [address]Dr. Douglas Tucker CO2 [Moles/Vol] 27.4 mmol/L Normal 21.0-32.0 [facility] Comment on above: Performed By: #### C MP ####[facility] [address]xjl[address]hquq[address] [place], [place] [address]Dr. Douglas Tucker Creatinine [Mass/Vol] 0.90 mg/dL Normal 0.55-1.02 [facility] Comment on above: Performed By: #### C MP ####[facility] Njycpsaq[address] [place], [place] [address]Dr. Douglas Tucker EGFR-AF CHILEAN >60 Normal >=60 [facility] Comment on above: Performed By: #### C MP ####[facility] C[address]zijasqx[address] [place], [place] [address]Dr. Douglas Tucker EGFR-NON AF CHILEAN >60 Normal >=60 [facility] Comment on above: Performed By: #### C MP ####[facility] Gp[address]qfh[address] [place], [place] [address]Dr. Douglas Garrett Globulin (S) [Mass/Vol] 3.4 g/dL Normal [facility] Comment on above: Performed By: #### C MP ####[facility] Gmoburrabo[address] [place], [place] [address]Dr. Douglas Garrett Glucose [Mass/Vol] 90 mg/dL Normal 74-106 [facility] Comment on above: Performed By: #### C MP ####[facility] Xuvfeivsbb[address] [place] [address]Dr. Douglas Tucker Potassium [Moles/Vol] 4.0 mmol/L Normal 3.5-5.1 [facility] Comment on above: Performed By: #### C MP ####[facility] Mqqayphqyy36[address] [place] [address]Dr. Douglas Tucker Protein [Mass/Vol] 7.3 g/dL Normal 6.4-8.2 [facility] Comment on above: Performed By: #### C MP ####[facility] Zakeyxkozi[address] [place] [address]Dr. Douglas Tucker Sodium [Moles/Vol] 140 mmol/L Normal 136-145 [facility] Comment on above: Performed By: #### C MP ####[facility] Cytaezjwkn17[address] [place] [address]Dr. Douglas Tucker Urea nitrogen [Mass/Vol] 10.0 mg/dL Normal 7.0-18.0 [facility] Comment on above: Performed By: #### C MP ####[facility] Eadbd[address]jbz[address] [place], [place] [address]Dr. Douglas Tucker Urea nitrogen/Creatinine [Mass ratio] 11.1 mg/mg Normal [facility] Comment on above: Performed By: #### C MP ####[facility] D[address]apybhob[address] [place] [address]Dr. Douglas Tucker URINE MICROSCOPIC ONLYon BACTERIA MODERATE Abnormal NONE SEEN [facility] Comment on above: Performed By: #### U MICRO, ERUR #### [facility] [address] [address] [address] Douglas Tucker Bacteria identified Cx Nom (U) INDICATED Normal [facility] Comment on above: Performed By: #### U MICRO, ERUR #### [facility] [address] [address] [address] Douglas Tucker CAST NONE SEEN Normal NONE SEEN [facility] Comment on above: Performed By: #### U MICRO, ERUR #### [facility] [address] [address] [address] Douglas Tucker Crystals LM Nom (Urine sed) NONE SEEN Normal NONE SEEN [facility] Comment on above: Performed By: #### U MICRO, ERUR #### [facility] [address] [place] [address] Dr. Douglas Tucker Epithelial cells LM Ql (Urine sed) FEW Abnormal NONE SEEN /RARE [facility] Comment on above: Performed By: #### U MICRO, ERUR #### [facility] [address] [place] [address] Dr. Douglas Tucker MUCOUS NONE SEEN Normal NONE SEEN [facility] Comment on above: Performed By: #### U MICRO, ERUR #### [facility] [address] [place] [address] Dr. Douglas Tucker RBC 0-2 Normal 0-2 [facility] Comment on above: Performed By: #### U MICRO, ERUR #### [facility] [address] [place] [address] Dr. Douglas Tucker WBC 2-5 Abnormal NONE SEEN [facility] Comment on above: Performed By: #### U MICRO, ERUR #### [facility] [address] [place] [address] Dr. Douglas Tucker US KIDNEYSon 01-28-2022 US KIDNEYS EXAMINATION: [facility] HISTORY: Pain ; right flank pain [...] RICHELLE BUSH Date: 2022-01-28 13:45 Normal [facility] CBC AUTO DIFFon 10-29-2021 BASO # 0.1 103/ul Normal 0.0-0.1 [facility] Comment on above: Performed By: #### C BC ####[facility] [address]ngm[address] [place] [id number]. Douglas Garrett Basophils/100 WBC (Bld) 0.8 % Normal 0.2-2.0 [facility] Comment on above: Performed By: #### C BC ####[facility] Zygkuicgrh[address] [place] [address]Dr. Umuana Tucker EO # 0.2 103/ul Normal 0.0-0.7 [facility] Comment on above: Performed By: #### C BC ####[facility] Txvxarxvsg[address] [place] [address]Dr. Douglas Garrett Eosinophils/100 WBC (Bld) 3.0 % Normal 0.9-7.0 [facility] Comment on above: Performed By: #### C BC ####[facility] Dqaklhezpp[address] [place] [address]Dr. Douglas Tucker Erythrocyte distribution width (RBC) [Ratio] 12.2 % Normal 11.0-15.0 [facility] Comment on above: Performed By: #### C BC ####[facility] Jlgrveoujn[address] [place] [id number]. Douglas Tucker Hematocrit (Bld) [Volume fraction] 39.9 % Normal 36.0-48.0 [facility] Comment on above: Performed By: #### C BC ####[facility] Wahgsvjjxc[address] [place] [id number]. Douglas Tucker Hemoglobin (Bld) [Mass/Vol] 13.5 g/dL Normal 12.0-16.0 [facility] Comment on above: Performed By: #### C BC ####[facility] Rtgzzivjnj[address] [place] [id number]. Douglas Tucker IG # 0.01 10e3/ul Normal 0.00-0.03 [facility] Comment on above: Performed By: #### C BC ####[facility] Iz[address]dfykwp[address] [place] [id number]. Douglas Tucker IG % 0.2 % Normal 0.0-0.5 [facility] Comment on above: Performed By: #### C BC ####[facility] Aetherroiy[address] [place] [id number]. Douglas Tucker LYMPH # 3.0 103/ul Normal 1.2-3.8 [facility] Comment on above: Performed By: #### C BC ####[facility] Fxdoeidanh[address] [place] [id number]. Douglas Tucker Lymphocytes/100 WBC (Bld) 44.6 % Normal 20.5-60.0 [facility] Comment on above: Performed By: #### C BC ####[facility] Ayvzsvwufe[address] [place] [address]Dr. Douglas Tucker MANUAL DIFF REQ NO Normal [facility] Comment on above: Performed By: #### C BC ####[facility] Fvpzvpcaxn[address] [place] [address]Dr. Douglas Tucker MCH (RBC) [Entitic mass] 32.1 pg Normal 26.7-34.0 [facility] Comment on above: Performed By: #### C BC ####[facility] Xultpcuaks[address] [place] [address]Dr. Douglas Tucker MCHC (RBC) [Mass/Vol] 33.8 g/dL Normal 29.9-35.2 [facility] Comment on above: Performed By: #### C BC ####[facility] Ijbicatogr[address] [place] [id number]. Douglas Tucker MCV (RBC) [Entitic vol] 95.0 fL Normal 81.0-99.0 [facility] Comment on above: Performed By: #### C BC ####[facility] Daxrmmpaij[address] [place] [address]Dr. Douglas Garrett MONO # 0.5 103/ul Normal 0.3-0.8 [facility] Comment on above: Performed By: #### C BC ####[facility] Jzzqlbexgg[address] [place] [id number]. Douglas Tucker Monocytes/100 WBC (Bld) 7.8 % Normal 1.7-12.0 [facility] Comment on above: Performed By: #### C BC ####[facility] Zvyhpfsdoo[address] [place] [id number]. Douglas Tucker NEUT # 2.9 103/ul Normal 1.4-6.5 [facility] Comment on above: Performed By: #### C BC ####[facility] V[address]zeaimeoz[address] [place] [id number]. Douglas Tucker Neutrophils/100 WBC (Bld) 43.6 % Normal 43.0-75.0 [facility] Comment on above: Performed By: #### C BC ####[facility] Ckframptnz[address] [place] [address]Dr. Douglas Tucker Platelet mean volume (Bld) [Entitic vol] 11.1 fL Normal 9.5-13.5 [facility] Comment on above: Performed By: #### C BC ####[facility] Wrxydooylq[address] [place] [id number]. Douglas Tucker PLT 188 103/ul Normal 150-450 [facility] Comment on above: Performed By: #### C BC ####[facility] Iiyjfsmvio0[address] [place] [id number]. Douglas Tucker RBC 4.20 106/ul Normal 4.20-5.40 [facility] Comment on above: Performed By: #### C BC ####[facility] Upmrormwjj[address] [place] [id number]. Douglas Tucker WBC 6.6 103/ul Normal 4.0-11.0 [facility] Comment on above: Performed By: #### C BC ####[facility] Tqxkeevxge[address] [place] [address]Dr. Douglas Tucker MAGNESIUMon 10-29-2021 Magnesium [Mass/Vol] 2.1 mg/dL Normal 1.8-2.4 [facility] Comment on above: Performed By: #### M G, CMP ####[facility] Rpeswsuchf[address] [place] [address]Dr. Douglas Tucker PROF 14(COMP METB)on 022 Albumin [Mass/Vol] 3.6 g/dL Normal 3.4-5.0 [facility] Comment on above: Performed By: #### Alyse Alejandro, CMP ####[facility] Ouxdqnpkds[address] [place] [address]Dr. Douglas Tucker Albumin/Globulin [Mass ratio] 1.2 {ratio} Normal [facility] Comment on above: Performed By: #### Alyse Alejandro, CMP ####[facility] Hnalazernr[address] [place] [address]Dr. Douglas Tucker ALP [Catalytic activity/Vol] 61 U/L Normal 46-116 [facility] Comment on above: Performed By: #### Alyse Alejandro, CMP ####[facility] [address]wi[address]qu[address] [place], [place] [address]Dr. Douglas Tucker ALT [Catalytic activity/Vol] 25 U/L Normal 14-59 [facility] Comment on above: Performed By: #### Alyse Alejandro, CMP ####[facility] [address]zrodtyls[address] [place], [place] [address]Dr. Douglas Tucker Anion gap [Moles/Vol] 12.4 mmol/L Normal [facility] Comment on above: Performed By: #### Alyse Alejandro, CMP ####[facility] Wepiafoebz[address] [place], [place] [address]Dr. Douglas Tucker AST [Catalytic activity/Vol] 23 U/L Normal 15-37 [facility] Comment on above: Performed By: #### Alyse Alejandro, CMP ####[facility] Pgddbqmjop[address] [place], [place] [address]Dr. Douglas Tucker Bilirubin [Mass/Vol] 0.3 mg/dL Normal 0.2-1.0 [facility] Comment on above: Performed By: #### Alyse Alejandro, CMP ####[facility] [address]eboznwfsu[address] [place], [place] [address]Dr. Douglas Tucker Calcium [Mass/Vol] 8.5 mg/dL Normal 8.5-10.1 [facility] Comment on above: Performed By: #### Alyse Alejandro, CMP ####[facility] Botymogldf[address] [place] [address]Dr. Douglas Tucker Chloride [Moles/Vol] 106 mmol/L Normal 98-107 [facility] Comment on above: Performed By: #### M G, CMP ####[facility] Xswwlsxgwk9[address] [place] [address]Dr. Douglas Tucker CO2 [Moles/Vol] 22.8 mmol/L Normal 21.0-32.0 [facility] Comment on above: Performed By: #### M G, CMP ####[facility] [address]zhfohmdr[address] [place], [place] [address]Dr. Douglas Tucker Creatinine [Mass/Vol] 0.76 mg/dL Normal 0.55-1.02 [facility] Comment on above: Performed By: #### Alyse Alejandro, CMP ####[facility] Lhkgolwpzy[address] [place], [place] [address]Dr. Douglas Tucker EGFR-AF CHILEAN >60 Normal >=60 [facility] Comment on above: Performed By: #### Alyse Alejandro, CMP ####[facility] Amer[address]lypvd[address] [place], [place] [address]Dr. Douglas Tucker EGFR-NON AF CHILEAN >60 Normal >=60 [facility] Comment on above: Performed By: #### Alyse Alejandro, CMP ####[facility] Jnjqjkywov[address] [place], [place] [address]Dr. Douglas Tucker Globulin (S) [Mass/Vol] 3.0 g/dL Normal [facility] Comment on above: Performed By: #### Alyse G, CMP ####[facility] Epepyivuku[address] [place] [address]Dr. Douglas Tucker Glucose [Mass/Vol] 110 mg/dL Critically high 74-106 [facility] Comment on above: Performed By: #### M G, CMP ####[facility] X[address]whwaeeql[address] [place], [place] [address]Dr. Douglas Tucker Potassium [Moles/Vol] 4.2 mmol/L Normal 3.5-5.1 [facility] Comment on above: Performed By: #### M G, CMP ####[facility] Gfbuukbhkr[address] [place] [phone]. Douglas Tucker Protein [Mass/Vol] 6.6 g/dL Normal 6.4-8.2 [facility] Comment on above: Performed By: #### M G, CMP ####[facility] Pjyswvmbne[address] [place] [phone]. Douglas Tucker Sodium [Moles/Vol] 137 mmol/L Normal 136-145 [facility] Comment on above: Performed By: #### M G, CMP ####[facility] Gullwvqcml[address] [place] [id number]. Douglas Tucker Urea nitrogen [Mass/Vol] 12.0 mg/dL Normal 7.0-18.0 [facility] Comment on above: Performed By: #### M G, CMP ####[facility] Mywcgbdjmk[address] [place] [address]Dr. Douglas Tucker Urea nitrogen/Creatinine [Mass ratio] 15.8 mg/mg Normal [facility] Comment on above: Performed By: #### M G, CMP ####[facility] [address] [place], [place] [id number]. Douglas Tucker [facility] 03-07-2021 [facility] HNO ID: [id number] Author: RT Pati(R) Service: Radiology Author Type: [...] RT Pati(R) March 07, 2021 5:32 PM [facility] HNO ID: [id number] Author: Rosalie Haile MD Service: ? Author [...] mg tablet Commonly known as: ZANAFLEX Rosalie Pinedaoubi, MD Normal [facility] HISTORY PHYSICALon HISTORY PHYSICAL HNO ID: [id number] Author: Rosalie Haile MD Service: ? Author Type: Physician Type: HANDP Filed: 03/11/2021 7:31 PM Note Text: [facility] : 1990 AGE: 31 SEX: F CSN: [id number] [facility]: [facility] LOCATION: [facility] ATTENDING PHYSICIAN: Rosalie Haile M.D. ? ? DATE OF SERVICE: 03/06/2021 ? ? SUBJECTIVE: Patient with a history of diabetes and obesity. Admitted to the hospital with seizure. ?This is a 31 year old female with a hx of seizures, diabetes, anxiety, and conversion disorder, who [place] [facility]. She and her boyfriend had just [...] WBC (k/uL) Date Value 03/06/2021 6.79 [facility] consultants notes reviewed Most recent images Reviewed Last EKG/Rhythm reviewed 03/06/21 1930 03/06/21 2100 03/06/21221103/06/212226 BP: 123/74 118/64 115/72 Pulse: 68 62 63 Resp: 20 18 Temp: 36.8 ?C (98.2 ?F) TempSrc: [...] goiter No carotid bruits. Rosalie Haile MD [facility] MRI BRAIN WO IVCONon 021 MRI BRAIN [...] Routine noncontrast MRI protocol including diffusion images. Cnuo-oe-ggvrhz MRV brain with post-processing performed at the [...] intravenous contrast. Patent major dural venous sinuses. Director Of Digital Technology: MAVERICK Transcribe Date/Time: Mar 07 2021 5:46P Dictated by : HOLLAND MUELLER MD This examination was interpreted and the report reviewed and electronically signed by: HOLLAND MUELLER MD on Mar 07 2021 5:51PM EST [id number] Normal [facility] MRV BRAIN WO IVCONon 021 MRV [...] Routine noncontrast MRI protocol including diffusion images. Hvvv-qv-vyjnoj MRV brain with post-processing performed at the [...] intravenous contrast. Patent major dural venous sinuses. Director Of Digital Technology: MAVERICK Transcribe Date/Time: Mar 07 2021 5:46P Dictated by : HOLLAND MUELLER MD This examination was interpreted and the report reviewed and electronically signed by: HOLLAND MUELLER MD on Mar 07 2021 5:51PM EST [id number] Normal [facility] NURSING PROGon 03-07-2021 NURSING PROG HNO ID: [id number] Author: Toya Pompa RN Service: ? Author Type: Registered Nurse Type: Nursing Progress Note Filed: 03/07/2021 11:35 PM Note Text: Nursing Progress Note Patient Name: Sully Enriquez Patient Location: [facility]/ Pt discharged, transferred via wheelchair to exit where was picking her up. IV/tele removed. All belongings accounted for. This note was completed by: Toya Pompa [facility] NURSING PROG HNO ID: [id number] Author: Cordelia Faye RN Service: Nursing Author Type: Registered Nurse Type: Nursing Progress Note Filed: 03/07/2021 5:15 PM Note Text: Nursing Progress Note Patient Name: Sully Enriquez Patient Location: [facility]/ Daily Note: 0830 Pt AANDOx3.Follows commands. No [...] pitting edema BLE. Call light within reach. [facility] 1630 pt asks to be d/c today and have MRI as OP per neurology recs. Dr Haile paged. 1705 pt to MRI. Medicated with 25 mg of Atarax prior to MRI. [address] Haile to wait for MRI results. If neurology signs off after the MRI is resulted will reach dr Haile for d/c orders. [facility] This note was completed by: Cordelia Faye [facility] NURSING PROG HNO ID: [id number] Author: Breanne Reis RN Service: ? Author [...] This note was completed by: Smiley Raymundo [facility] NURSING PROG HNO ID: [id number] Author: Yoselin Cui RN Service: Nursing Author [...] This note was completed by: Yoselin Cui [facility] ALLIED HEALTHon 03-06-2021 ALLIED HEALTH HNO ID: [id number] Author: RT Sanam(R) Service: ? Author Type: Technologist Type: Allied [...] Sanam(R) March 06, 2021 2:45 AM Normal [facility] CBC and Differentialon 03-06 Abs Baso 0.04 k/uL Normal <0.11 [facility] Comment on above: Performed By: #### C K, ALCO, CBCDIF, CMP, MG1 ####[place] [id number] [place] [phone] Abs [place] 0.55 k/uL Normal <0.87 [facility] Comment on above: Performed By: #### C K, ALCO, CBCDIF, CMP, MG1 ####[place] [id number] [place] [phone] Abs Neut 3.17 k/uL Normal 1.45-7.50 [facility] Comment on above: Performed By: #### C K, ALCO, CBCDIF, CMP, MG1 ####[facility] [place] [phone] Absolute nRBC <0.01 Normal <0.01 [facility] Comment on above: Performed By: #### C K, ALCO, CBCDIF, CMP, MG1 ####[place] [phone] Basophils/100 WBC (Bld) 0.6 % Normal F [facility] Comment on above: Performed By: #### C K, ALCO, CBCDIF, CMP, MG1 ####[place] [address] DTYPE Auto Diff Normal [facility] Comment on above: Performed By: #### C K, ALCO, CBCDIF, CMP, MG1 ####[place] [address] Eosinophils (Bld) [#/Vol] 0.17 10*3/uL Normal <0.46 [facility] Comment on above: Performed By: #### C K, ALCO, CBCDIF, CMP, MG1 ####[place] [address] Eosinophils/100 WBC (Bld) 2.5 % Normal [facility] Comment on above: Performed By: #### C K, ALCO, CBCDIF, CMP, MG1 ####[place] [address] Erythrocyte distribution width (RBC) [Ratio] 12.0 % Normal 11.5-15.0 [facility] Comment on above: Performed By: #### C K, ALCO, CBCDIF, CMP, MG1 ####[place] [address] Hematocrit (Bld) [Volume fraction] 40.1 % Normal 36.0-46.0 [facility] Comment on above: Performed By: #### C K, ALCO, CBCDIF, CMP, MG1 ####[place] [address] Hemoglobin (Bld) [Mass/Vol] 13.2 g/dL Normal 11.5-15.5 [facility] Comment on above: Performed By: #### C K, ALCO, CBCDIF, CMP, MG1 ####[place] [address] Lymphocytes (Bld) [#/Vol] 2.85 10*3/uL Normal 1.00-4.00 [facility] Comment on above: Performed By: #### C K, ALCO, CBCDIF, CMP, MG1 ####[place] [phone] Lymphocytes/100 WBC (Bld) 42.0 % Normal [facility] Comment on above: Performed By: #### C K, ALCO, CBCDIF, CMP, MG1 ####[place] [phone] MCH 31.8 pG Normal 26.0-34.0 [facility] Comment on above: Performed By: #### C K, ALCO, CBCDIF, CMP, MG1 ####[place] [phone] MCHC (RBC) [Mass/Vol] 32.9 g/dL Normal 30.5-36.0 [facility] Comment on above: Performed By: #### C K, ALCO, CBCDIF, CMP, MG1 ####[place] [phone] MCV (RBC) [Entitic vol] 96.6 fL Normal 80.0-100.0 [facility] Comment on above: Performed By: #### C K, ALCO, CBCDIF, CMP, MG1 ####[place] [phone] Monocytes/100 WBC (Bld) 8.1 % Normal [facility] Comment on above: Performed By: #### C K, ALCO, CBCDIF, CMP, MG1 ####[place] [phone] Neutrophils/100 WBC (Bld) 46.8 % Normal [facility] Comment on above: Performed By: #### C K, ALCO, CBCDIF, CMP, MG1 ####[place] [phone] NRBCs 0.0 /100 WBC Normal 0 [facility] Comment on above: Performed By: #### C K, ALCO, CBCDIF, CMP, MG1 ####[place] [phone] Platelet mean volume (Bld) [Entitic vol] 10.7 fL Normal 9.0-12.7 [facility] Comment on above: Performed By: #### C K, ALCO, CBCDIF, CMP, MG1 ####[place] [phone] Platelets (Bld) [#/Vol] 183 10*3/uL Normal 150-400 [facility] Comment on above: Performed By: #### C K, ALCO, CBCDIF, CMP, MG1 ####[place] [phone] RBC (Bld) [#/Vol] 4.15 10*6/uL Normal 3.90-5.20 [facility] Comment on above: Performed By: #### C K, ALCO, CBCDIF, CMP, MG1 ####[place] [phone] WBC (Bld) [#/Vol] 6.79 10*3/uL Normal 3.70-11.00 [facility] Comment on above: Performed By: #### C K, ALCO, CBCDIF, CMP, MG1 ####[place] [phone] CKon 03-06-2021 CK [Catalytic activity/Vol] 103 U/L Normal 30-220 [facility] Comment on above: Performed By: #### C K, ALCO, CBCDIF, CMP, MG1 ####[place] [phone] CONSULTon 03-06-2021 CONSULT HNO ID: [id number] Author: Saravanan Yancey MD Service: Neurology General Author Type: Resident Type: Consults Filed: 03/06/2021 5:10 PM Note Text: ----- Attestation signed by Tim Sanches MD at 03/06/2021 9:16 PM [facility] STAFF PHYSICIAN NOTE OF PERSONAL [...] her had just deplaned coming back from [place] x 3 days and she had not [...] [place] who is a family doctor in [facility], and she has noted hx of [...] Facility-Administered Medica (more content not included)... Normal [facility] CT BRAIN WO IVCONon 03-06-20 CT [...] Other: No depressed skull fracture is seen. Operating Theatre Technician (topogram) images: Non-diagnostic. IMPRESSION: No CT evidence of an acute intracranial abnormality. Other: details above. Director Of Digital Technology: MAVERICK Transcribe Date/Time: Mar 06 2021 3:13A Dictated by : JENN MORENO MD This examination was interpreted and the report reviewed and electronically signed by: JENN MORENO MD on Mar 06 2021 3:15AM EST [id number] Normal [facility] Comp Metabolic Panelon 03-06 Albumin [Mass/Vol] 4.6 g/dL Normal 3.5-5.0 [facility] Comment on above: Performed By: #### C K, ALCO, CBCDIF, CMP, MG1 ####[place] [phone] ALP [Catalytic activity/Vol] 67 U/L Normal 34-123 [facility] Comment on above: Performed By: #### C K, ALCO, CBCDIF, CMP, MG1 ####[place] [phone] ALT [Catalytic activity/Vol] 15 U/L Normal 0-45 [facility] Comment on above: Performed By: #### C K, ALCO, CBCDIF, CMP, MG1 ####[place] [phone] Anion gap [Moles/Vol] 10 mmol/L Normal 9-18 [facility] Comment on above: Performed By: #### C K, ALCO, CBCDIF, CMP, MG1 ####[place] [phone] AST [Catalytic activity/Vol] 15 U/L Normal 7-40 [facility] Comment on above: Performed By: #### C K, ALCO, CBCDIF, CMP, MG1 ####[place] [phone] Bilirubin [Mass/Vol] 0.2 mg/dL Normal 0.2-1.3 [facility] Comment on above: Performed By: #### C K, ALCO, CBCDIF, CMP, MG1 ####[place] [phone] Calcium [Mass/Vol] 9.3 mg/dL Normal 8.5-10.5 [facility] Comment on above: Performed By: #### C K, ALCO, CBCDIF, CMP, MG1 ####[place] [phone] Chloride [Moles/Vol] 106 mmol/L Normal 98-110 [facility] Comment on above: Performed By: #### C K, ALCO, CBCDIF, CMP, MG1 ####[place] [phone] CO2 [Moles/Vol] 25 mmol/L Normal 23-32 [facility] Comment on above: Performed By: #### C K, ALCO, CBCDIF, CMP, MG1 ####[place] [phone] Creatinine [Mass/Vol] 0.99 mg/dL Normal 0.70-1.40 [facility] Comment on above: Performed By: #### C K, ALCO, CBCDIF, CMP, MG1 ####[place] [phone] eGFR- Amer. >60 Normal >60 [facility] Comment on above: Performed By: #### C K, ALCO, CBCDIF, CMP, MG1 ####[place] [phone] eGFR-All Other Races >60 Normal >60 [facility] Comment on above: Result Comment: eGFR [...] #### C K, ALCO, CBCDIF, CMP, MG1 ####[place] [phone] Glucose [Mass/Vol] 103 mg/dL High 65-100 [facility] Comment on above: Performed By: #### C K, ALCO, CBCDIF, CMP, MG1 ####[place] [phone] Potassium [Moles/Vol] 3.9 mmol/L Normal 3.5-5.0 [facility] Comment on above: Performed By: #### C K, ALCO, CBCDIF, CMP, MG1 ####[place] [phone] Protein [Mass/Vol] 7.1 g/dL Normal 6.0-8.4 [facility] Comment on above: Performed By: #### C K, ALCO, CBCDIF, CMP, MG1 ####[place] [phone] Sodium [Moles/Vol] 141 mmol/L Normal 132-148 [facility] Comment on above: Performed By: #### C K, ALCO, CBCDIF, CMP, MG1 ####[place] [phone] Urea nitrogen [Mass/Vol] 12 mg/dL Normal 8-25 [facility] Comment on above: Performed By: #### C K, ALCO, CBCDIF, CMP, MG1 ####[place] [phone] ED NOTEon 03-06-2021 ED NOTE HNO ID: [id number] Author: Isabell Olivares RN Service: ? Author Type: Registered Nurse Type: ED Notes Filed: 03/06/2021 9:38 PM Note Text: Report to JUS Reis. [facility] ED NOTE HNO ID: [id number] Author: Isabell Olivares RN Service: ? Author Type: Registered Nurse Type: ED Notes Filed: 03/06/2021 7:16 PM Note Text: Pt up to bedside commode in room with steady gait, pt back to bed, siderails up x 2. [facility] ED NOTE HNO ID: [id number] Author: Isabell Olivares RN Service: ? Author Type: Registered Nurse Type: ED Notes Filed: 03/06/2021 6:32 PM Note Text: Meal tray arrives at the bedside. [facility] ED NOTE HNO ID: [id number] Author: Isabell Olivares RN Service: ? Author Type: Registered Nurse Type: ED Notes Filed: 03/06/2021 6:02 PM Note Text: Pt encouraged to call for dinner tray. Pt reports her headache has improved. [facility] ED NOTE HNO ID: [id number] Author: Isabell Olivares RN Service: ? Author Type: Registered Nurse Type: ED Notes Filed: 03/06/2021 5:18 PM Note Text: Pt states much improvement to her headache, resting in the room with her family, lights dimmed for comfort. [facility] ED NOTE HNO ID: [id number] Author: Isabell Olivares RN Service: ? Author Type: Registered Nurse Type: ED Notes Filed: 03/06/2021 2:48 PM Note Text: Pt reports no improvement in her headache, pt resting with lights off and warm blankets with family at bedside. No new orders at this time. Neurology paged. [facility] ED NOTE HNO ID: [id number] Author: Isabell Olivares RN Service: ? Author Type: Registered Nurse Type: ED Notes Filed: 03/06/2021 2:25 PM Note Text: MRI form faxed to MRI. Pt states she has claustrophobia with MRI, Neurology paged. [facility] ED NOTE HNO ID: [id number] Author: Isabell Olivares RN Service: ? Author Type: Registered Nurse Type: ED Notes Filed: 03/06/2021 2:04 PM Note Text: MRI Screening form given to the patient. [facility] ED NOTE HNO ID: [id number] Author: Isabell Olivares RN Service: ? Author Type: Registered Nurse Type: ED Notes Filed: 03/06/2021 1:56 PM Note Text: Pt assisted onto and off the bedpan. [facility] ED NOTE HNO ID: [id number] Author: Isabell Olivares RN Service: ? Author Type: Registered Nurse Type: ED Notes Filed: 03/06/2021 1:56 PM Note Text: Pt accucheck 100, meal tray at bedside. [facility] ED NOTE HNO ID: [id number] Author: Isabell Olivares RN Service: ? Author Type: Registered Nurse Type: ED Notes Filed: 03/06/2021 1:39 PM Note Text: Neurology at bedside with the patient. [facility] ED NOTE HNO ID: [id number] Author: Isabell Olivares RN Service: ? Author Type: Registered Nurse Type: ED Notes Filed: 03/06/2021 1:26 PM Note Text: Verbal order from Dr. Haile for 25mg PO benadryl [facility] ED NOTE HNO ID: [id number] Author: Isabell Olivares RN Service: ? Author Type: Registered Nurse Type: ED Notes Filed: 03/06/2021 11:20 AM Note Text: Pt resting in bed with seizure pads in place, pt family member sleeping in the bed with the patient, pt family member asked to not be in the bed with the patient for patient safety. [facility] ED NOTE HNO ID: [id number] Author: Jade Forte RN Service: ? Author Type: Registered Nurse Type: ED Notes Filed: 03/06/2021 11:13 AM Note Text: Patient report given to JUS Whyte [facility] ED NOTE HNO ID: [id number] Author: Isabell Olivares RN Service: ? Author Type: Registered Nurse Type: ED Notes Filed: 03/06/2021 11:02 AM Note Text: Assumed care of the patient at this time, received report from JUS Hansen. Plan of Care: - maintain patient comfort, safety and privacy - monitor for changes in condition - bed locked, low position, siderails up - call light within reach [facility] ED NOTE HNO ID: [id number] Author: Jade Forte RN Service: ? Author Type: Registered Nurse Type: ED Notes Filed: 03/06/2021 11:05 AM Note Text: Patient reports continuing to have headache. Spouse also reports had another few second seizure. House paged. [facility] ED NOTE HNO ID: [id number] Author: Jade Forte RN Service: ? Author Type: Registered Nurse Type: ED Notes Filed: 03/06/2021 10:11 AM Note Text: Called lab, breakfast tray ordered [facility] ED NOTE HNO ID: [id number] Author: Jade Forte RN Service: ? Author Type: Registered Nurse Type: ED Notes Filed: 03/06/2021 8:43 AM Note Text: Patient placed on bedpan. Patient and sheets soiled. Patient cleaned, linens changed [facility] ED NOTE HNO ID: [id number] Author: Jade Forte RN Service: ? Author Type: Registered Nurse Type: ED Notes Filed: 03/06/2021 8:31 AM Note Text: Answered patient call light. Patient requesting bedpan. Patient reports patient just had seizure . House paged and returned call. [facility] ED NOTE HNO ID: [id number] Author: Jade Forte RN Service: ? Author Type: Registered Nurse Type: ED Notes Filed: 03/06/2021 7:39 AM Note Text: Patient resting in bed. Declines breakfast at this time. Reports headache and nausea. House paged. [facility] ED NOTE HNO ID: [id number] Author: Jade Forte RN Service: ? Author Type: Registered Nurse Type: ED Notes Filed: 03/06/2021 7:07 AM Note Text: Patient report received from JUS Schuler [facility] ED PROV NOTEon 03-06-2021 ED PROV NOTE HNO ID: [id number] Author: Adeel Mauro MD Service: Hospital Medicine [...] (*) Negative (more content not included)... Normal [facility] Ethanolon 03-06-2021 Ethanol [Mass/Vol] mg/dL Normal <11 [facility] Comment on above: Performed By: #### C K, ALCO, CBCDIF, CMP, MG1 ####[facility] [place] [phone] Expedited [id number] 03-06-20 21 SARS-CoV-2 (COVID-19) RNA AZ+probe Ql (Unsp spec) UPPER RESPIRATORY TRACT SWAB Normal [facility] Comment on above: Performed By: #### E XCOVD #### [place] [phone] SARS-CoV-2 (COVID-19) RNA AZ+probe Ql (Unsp spec) Negative for COVID19 (SARS CoV2) by RT-PCR or equivalent method. Normal Negative for COVID19 (SARS CoV2) by RT-PCR or equivalent method. [facility] Comment on above: Result Comment: This test has been authorized by FDA under an Emergency Use Authorization (EUA). Performed By: #### E XCOVD #### [place] [phone] HCG Qual, Urineon 03-06-2021 Beta HCG ( test) Ql (U) Negative Normal Negative [facility] Comment on above: Performed By: #### U HCG ####[place] [phone] HISTORY PHYSICALon HISTORY PHYSICAL HNO ID: [id number] Author: Adonis Mahoney MD Service: General Internal Medicine Author Type: Physician Type: HANDP Filed: 03/06/2021 6:51 AM Note Text: HISTORY AND PHYSICAL EXAMINATION * SERVICE DATE: 03/06/2021 PRIMARY CARE PHYSICIAN: Keli Strickland NP Subjective CHIEF COMPLAINT: Seizures HPI: This is a 31 year old female with a hx of seizures, diabetes, anxiety, and conversion disorder, who reportedly [place] [facility]. She and her boyfriend had just [...] March 06, 2021 TIME: 6:08 AM Normal [facility] Magnesiumon 03-06-2021 Magnesium [Mass/Vol] 2.1 mg/dL Normal 1.7-2.6 [facility] Comment on above: Performed By: #### C K, ALCO, CBCDIF, CMP, MG1 ####[place] [phone] TSHon 03-06-2021 TSH Qn 3.170 m[IU]/L Normal 0.270-4.200 [facility] Comment on above: Result Comment: If [...] E, et al. 2017 Guidelines of the [place] [employer] Association for the Diagnosis and Management of Thyroid Disease during and the . Thyroid, 2017:27:3:315-389. Performed By: #### T SH ####[place] [phone] Toxicology Screen,Uron 03-06 Amphetamines, Urine Negative Normal Negative [facility] Comment on above: Result Comment: Cuto ff threshold at 1000 ng/mL. Performed By: #### U TOX2, UAWMIC #### [place] [phone] Barbiturates, Urine Negative Normal Negative [facility] Comment on above: Result Comment: Cuto ff threshold at 200 ng/mL. Performed By: #### U TOX2, UAWMIC #### [place] [phone] Benzodiazepines, Ur Negative Normal Negative [facility] Comment on above: Result Comment: Cuto ff threshold at 200 ng/mL. Performed By: #### U TOX2, UAWMIC #### [place] [phone] Cannabinoids, Urine Negative Normal Negative [facility] Comment on above: Result Comment: Cuto ff threshold at 50 ng/mL. Performed By: #### U TOX2, UAWMIC #### [phone] Cocaine, Urine Negative Normal Negative [facility] Comment on above: Result Comment: Cuto ff threshold at 300 ng/mL. Performed By: #### U TOX2, UAWMIC #### [phone] Ethanol, Urine <11 Normal <11 [facility] Comment on above: Performed By: #### U TOX2, UAWMIC #### [place] [phone] Opiates, Urine Negative Normal Negative [facility] Comment on above: Result Comment: Cuto ff threshold at 300 ng/mL. Performed By: #### U TOX2, UAWMIC #### [place] [phone] Oxycodone, Urine Negative Normal Negative [facility] Comment on above: Result Comment: Cuto [...] on the same specimen through Client Services ([phone]) if contacted within 48 hours of initial testing. [1]Substance Abuse and Mental Health Services Administration (2012). Clinical Drug Testing in Primary Care Technical Assistance Publication Series 32. Department of Health and Human Services, [place], p.10. Performed By: #### U TOX2, UAWMIC #### [place] [address] Phencyclidine, Urine Negative Normal Negative [facility] Comment on above: Result Comment: Cuto ff threshold at 25 ng/mL. Performed By: #### U TOX2, UAWMIC #### [place] [address] Urinalysis with Microscopico n 03-06-2021 Bacteria Rare Critically abnormal Negative [facility] Comment on above: Performed By: #### U TOX2, UAWMIC #### [place] [address] Bilirubin, Urine Negative Normal Negative [facility] Comment on above: Performed By: #### U TOX2, UAWMIC #### [place] [address] Clarity (U) Clear Normal Clear [facility] Comment on above: Performed By: #### U TOX2, UAWMIC #### [place] [address] Color (U) Colorless Critically abnormal Yellow [facility] Comment on above: Performed By: #### U TOX2, UAWMIC #### [place] [address] Comments SEE COMMENT Normal [facility] Comment on above: Result Comment: Micr oscopic Examination Performed Performed By: #### U TOX2, UAWMIC #### [place] [address] Epithelial cells LM Ql (Urine sed) SEE COMMENT Critically abnormal Negative [facility] Comment on above: Result Comment: Rare Squamous Epithelial Cells Performed By: #### U TOX2, UAWMIC #### [place] [address] Glucose Ql (U) Negative Normal Negative [facility] Comment on above: Performed By: #### U TOX2, UAWMIC #### [place] [phone] Hemoglobin/Blood,Ur Negative Normal Negative [facility] Comment on above: Performed By: #### U TOX2, UAWMIC #### [place] [phone] Ketones Ql (U) Negative Normal Negative [facility] Comment on above: Performed By: #### U TOX2, UAWMIC #### [place] [address] Leukest Negative Normal Negative [facility] Comment on above: Performed By: #### U TOX2, UAWMIC #### [place] [phone] Nitrite Ql (U) Negative [facility] Comment on above: Performed By: #### U TOX2, UAWMIC #### [place] [address] pH (U) 7.0 [pH] Normal 5.0-8.0 [facility] Comment on above: Performed By: #### U TOX2, UAWMIC #### [address] Protein, Urine Negative Normal [facility] Comment on above: Performed By: #### U TOX2, UAWMIC #### [place] [address] RBC Rare Critically abnormal Negative [facility] Comment on above: Performed By: #### U TOX2, UAWMIC #### [place] [id number] Specific [place], Ur 1.007 Normal 1.005-1.030 [facility] Comment on above: Performed By: #### U TOX2, UAWMIC #### [place] [phone] Urobilinogen (U) [Mass/Vol] Negative Normal Negative [facility] Comment on above: Performed By: #### U TOX2, UAWMIC #### [facility] [address] [place] [address] WBC Rare Critically abnormal Negative [facility] Comment on above: Performed By: #### U TOX2, UAWMIC #### [facility] [address] [place] [address] Vital Signs Date Time Vital Sign Value Performing Clinician Facility 03-12-2024 09:52-0500 Body height 165.1 cm Anastasia FINNEGAN-C Work Phone: [facility] 03-12-2024 09:52-0500 Body mass index (BMI) [Ratio] 38.77 kg/m2 Anastasia Mon PA-C Work Phone: [facility] 03-12-2024 09:52-0500 Body weight 105.69 kg Anastasia FINNEGAN-C Work Phone: [facility] 02-23-2024 14:38-0500 Body height 165.1 cm DO Mario Pee Work Phone: [facility] 02-23-2024 14:38-0500 Body mass index (BMI) [Ratio] 38.2 kg/m2 DO Mario Pee Work Phone: [facility] 02-23-2024 14:38-0500 Body temperature 96.8 [degF] DO Mario Pee Work Phone: [facility] 02-23-2024 14:38-0500 Body weight 104.32 kg DO Mario Pee Work Phone: [facility] 02-23-2024 14:38-0500 Diastolic blood pressure 72 mm[Hg] DO Mario Pee Work Phone: [facility] 02-23-2024 14:38-0500 Heart rate 84 /min DO Mario Pee Work Phone: [facility] 02-23-2024 14:38-0500 Respiratory rate 16 /min DO Mario Pee Work Phone: [facility] 02-23-2024 14:38-0500 SaO2% (BldA) [Mass fraction] 98 % DO Mario Pee Work Phone: [facility] 02-23-2024 14:38-0500 Systolic blood pressure 120 mm[Hg] DO Mario Pee Work Phone: [facility] 02-17-2024 12:59-0400 Body height 165.1 cm Devaughn Anderson MD Work Phone: [facility] 02-17-2024 12:59-0400 Body mass index (BMI) [Ratio] 38.78 kg/m2 Devaughn Anderson MD Work Phone: [facility] 02-17-2024 12:59-0400 Body weight 105.7 kg Devaughn Anderson MD Work Phone: [facility] 02-17-2024 12:59-0400 Diastolic blood pressure 81 mm[Hg] Devaughn Anderson MD Work Phone: [facility] 02-17-2024 12:59-0400 Heart rate 83 /min Devaughn Anderson MD Work Phone: [facility] 02-17-2024 12:59-0400 SaO2% (BldA) [Mass fraction] 100 % Devaughn Anderson MD Work Phone: [facility] 02-17-2024 12:59-0400 Systolic blood pressure 124 mm[Hg] Devaughn Anderson MD Work Phone: [facility] 01-30-2024 09:33-0400 Body height 165.1 cm Anastasia Mon PA-C Work Phone: [facility] 01-30-2024 09:33-0400 Body mass index (BMI) [Ratio] 38.11 kg/m2 Anastasia Mon PA-C Work Phone: [facility] 01-30-2024 09:33-0400 Body weight 103.87 kg Anastasia Mon PA-C Work Phone: [facility] 01-19-2024 14:27-0400 Body height 165.1 cm Anastasia Mon PA-C Work Phone: [facility] 01-19-2024 14:27-0400 Body mass index (BMI) [Ratio] 38.11 kg/m2 Anastasia Mon PA-C Work Phone: [facility] 01-19-2024 14:27-0400 Body weight 103.87 kg Anastasia Mon PA-C Work Phone: [facility] 01-06-2024 13:45-0400 Body height 165.1 cm [facility] Comment on above: pt reported 01-06-2024 13:45-0400 Body mass index (BMI) [Ratio] 38.11 kg/m2 [facility] 01-06-2024 13:45-0400 Body weight 103.87 kg [facility] Comment on above: pt reported 01-06-2024 13:45-0400 Heart rate 96 /min [facility] Comment on above: per pt counting method 12-26-2023 13:32-0400 Body height 165.1 cm Adele Sutton MD Work Phone: [facility] 12-26-2023 13:32-0400 Body mass index (BMI) [Ratio] 38.61 kg/m2 Adele Sutton MD Work Phone: [facility] 12-26-2023 13:32-0400 Body weight 105.23 kg Adele Sutton MD Work Phone: [facility] 12-26-2023 10:24-0400 Body height 165.1 cm [facility] 12-26-2023 10:24-0400 Body mass index (BMI) [Ratio] 38.2 kg/m2 [facility] 12-26-2023 10:24-0400 Body temperature 97.3 [degF] [facility] 12-26-2023 10:24-0400 Body weight 104.32 kg [facility] 12-26-2023 10:24-0400 Diastolic blood pressure 88 mm[Hg] [facility] 12-26-2023 10:24-0400 Heart rate 102 /min [facility] 12-26-2023 10:24-0400 SaO2% (BldA) [Mass fraction] 98 % [facility] 12-26-2023 10:24-0400 Systolic blood pressure 122 mm[Hg] [facility] 11-12-2023 14:42-0400 Body height 165.1 cm [facility] 11-12-2023 14:42-0400 Body mass index (BMI) [Ratio] 38.7 kg/m2 [facility] 11-12-2023 14:42-0400 Body temperature 98.4 [degF] [facility] 11-12-2023 14:42-0400 Body weight 105.68 kg [facility] 11-12-2023 14:42-0400 Diastolic blood pressure 90 mm[Hg] [facility] 11-12-2023 14:42-0400 Heart rate 101 /min [facility] 11-12-2023 14:42-0400 Respiratory rate 18 /min [facility] 11-12-2023 14:42-0400 SaO2% (BldA) [Mass fraction] 98 % [facility] 11-12-2023 14:42-0400 Systolic blood pressure 120 mm[Hg] [facility] 10-08-2023 16:13-0400 Body height 165.1 cm [facility] 10-08-2023 16:13-0400 Body mass index (BMI) [Ratio] 39.7 kg/m2 [facility] 10-08-2023 16:13-0400 Body temperature 96.9 [degF] [facility] 10-08-2023 16:13-0400 Body weight 108.4 kg [facility] 06-19-2024 16:13-0400 Diastolic blood pressure 82 mm[Hg] [facility] 10-08-2023 16:13-0400 Heart rate 99 /min [facility] 10-08-2023 16:13-0400 Respiratory rate 16 /min [facility] 10-08-2023 16:13-0400 SaO2% (BldA) [Mass fraction] 97 % [facility] 10-08-2023 16:13-0400 Systolic blood pressure 132 mm[Hg] [facility] 08-27-2023 16:34-0400 Body height 165.1 cm DO Mario Pee Work Phone: [facility] 08-27-2023 16:34-0400 Body mass index (BMI) [Ratio] 39.7 kg/m2 DO Mario Pee Work Phone: [facility] 08-27-2023 16:34-0400 Body temperature 97.9 [degF] DO Mario Pee Work Phone: [facility] 08-27-2023 16:34-0400 Body weight 108.4 kg DO Mario Pee Work Phone: [facility] 08-27-2023 16:34-0400 Diastolic blood pressure 80 mm[Hg] DO Mario Pee Work Phone: [facility] 08-27-2023 16:34-0400 Heart rate 70 /min DO Mario Pee Work Phone: [facility] 08-27-2023 16:34-0400 Respiratory rate 18 /min DO Mario Pee Work Phone: [facility] 08-27-2023 16:34-0400 SaO2% (BldA) [Mass fraction] 98 % DO Mario Pee Work Phone: [facility] 08-27-2023 16:34-0400 Systolic blood pressure 130 mm[Hg] DO Mario Pee Work Phone: [facility] 08-07-2023 10:53-0400 Body height 165.1 cm Franchesca TMAT PA-C Work Phone: [facility] 08-07-2023 10:53-0400 Body weight 105.23 kg Franchesca TMAT PA-C Work Phone: [facility] 07-07-2023 10:40-0400 Body temperature 98.2 [degF] DO Mario Pee Work Phone: [facility] 07-07-2023 10:40-0400 Diastolic blood pressure 74 mm[Hg] DO Mario Pee Work Phone: [facility] 07-07-2023 10:40-0400 Heart rate 70 /min DO Mario Pee Work Phone: [facility] 07-07-2023 10:40-0400 Respiratory rate 18 /min DO Mario Pee Work Phone: [facility] 07-07-2023 10:40-0400 SaO2% (BldA) [Mass fraction] 98 % DO Mario Pee Work Phone: [facility] 07-07-2023 10:40-0400 Systolic blood pressure 135 mm[Hg] DO Mario Pee Work Phone: [facility] 06-03-2023 18:00-0500 Diastolic blood pressure 75 mm[Hg] DO Mario Pee Work Phone: [facility] 06-03-2023 18:00-0500 Heart rate 72 /min DO Mario Pee Work Phone: [facility] 06-03-2023 18:00-0500 Respiratory rate 16 /min DO Mario Pee Work Phone: [facility] 06-03-2023 18:00-0500 SaO2% (BldA) [Mass fraction] 98 % DO Mario Pee Work Phone: [facility] 06-03-2023 18:00-0500 Systolic blood pressure 116 mm[Hg] DO Mario Pee Work Phone: [facility] 06-03-2023 13:34-0500 Body height 165.1 cm DO Mario Pee Work Phone: [facility] 06-03-2023 13:34-0500 Body temperature 98.2 [degF] DO Mario Pee Work Phone: [facility] 06-03-2023 13:34-0500 Body weight 103.87 kg DO Mario Pee Work Phone: [facility] 04-01-2023 14:00-0500 Body height 165.1 cm DO Mario Pee Work Phone: [facility] 04-01-2023 14:00-0500 Body weight 103.87 kg DO Mario Pee Work Phone: [facility] 04-01-2023 14:00-0500 Diastolic blood pressure 78 mm[Hg] DO Mario Pee Work Phone: [facility] 04-01-2023 14:00-0500 Systolic blood pressure 118 mm[Hg] DO Mario Pee Work Phone: [facility] 01-29-2023 10:15-0400 Body height 165.1 cm Mario Pee Other [facility] [employer] Other 01-29-2023 10:15-0400 Body mass index (BMI) [Ratio] 37.27 kg/m2 Mario Pee Other [employer] Other 01-29-2023 10:15-0400 Body temperature 96.9 [degF] Mario Pee Other [employer] Other 01-29-2023 10:15-0400 Body weight 101.61 kg Mario Pee Other [employer] Other 01-29-2023 10:15-0400 Diastolic blood pressure 70 mm[Hg] Mario Pee Other [employer] Other 01-29-2023 10:15-0400 Respiratory rate 20 /min Mario Pee Other [employer] Other 01-29-2023 10:15-0400 SaO2% (BldA) [Mass fraction] 99 % Mario Pee Other [employer] Other 01-29-2023 10:15-0400 Systolic blood pressure 110 mm[Hg] Mario Pee Other [employer] Other 12-12-2022 15:15-0400 Body height 165.1 cm Mario Pee Other [employer] Other 12-12-2022 15:15-0400 Body mass index (BMI) [Ratio] 37.77 kg/m2 Mario Pee Other [employer] Other 12-12-2022 15:15-0400 Body weight 102.97 kg Mario Pee Other [employer] Other 12-12-2022 15:15-0400 Diastolic blood pressure 60 mm[Hg] Mario Pee Other [employer] Other 12-12-2022 15:15-0400 Respiratory rate 20 /min Mario Pee Other [facility] [employer] Other 12-12-2022 15:15-0400 Systolic blood pressure 102 mm[Hg] Mario Glasgow Other [facility] [employer] Other 11-23-2022 01:18-0400 Diastolic blood pressure 83 [...] pressure 77 mm[Hg] Kaylinn Dokken [facility] 11-23-2022 00:00-0400 SaO2% (BldA) [Mass fraction] 99 % Kaylinn Dokken [facility] 11-23-2022 00:00-0400 Systolic blood pressure 105 mm[Hg] Kaylinn Dokken [facility] 11-22-2022 22:00-0400 Heart rate 63 /min Kaylinn Dokken [facility] 11-22-2022 20:59-0400 Body temperature 98.06 [degF] Kaylinn Dokken [facility] 11-22-2022 20:59-0400 Respiratory rate 19 /min Kaylinn Dokken [facility] 11-14-2022 13:15-0400 Body height 165.1 cm Mario Glasgow Other [employer] Other 11-14-2022 13:15-0400 Body mass index (BMI) [Ratio] 37.77 kg/m2 Mario Pee Other [employer] Other 11-14-2022 13:15-0400 Body temperature 97.8 [degF] Mario Pee Other [employer] Other 11-14-2022 13:15-0400 Body weight 102.97 kg Mario Pee Other [employer] Other 11-14-2022 13:15-0400 Diastolic blood pressure 76 mm[Hg] Mario Pee Other [employer] Other 11-14-2022 13:15-0400 Respiratory rate 20 /min Mario Pee Other [employer] Other 11-14-2022 13:15-0400 SaO2% (BldA) [Mass fraction] 97 % Mario Pee Other [employer] Other 11-14-2022 13:15-0400 Systolic blood pressure 100 mm[Hg] Amrio Pee Other [employer] Other 10-15-2022 14:45-0400 Body height 165.1 cm Mario Pee Other [employer] Other 10-15-2022 14:45-0400 Body mass index (BMI) [Ratio] 38.44 kg/m2 Mario Pee Other [employer] Other 10-15-2022 14:45-0400 Body temperature 96 [degF] Mario Pee Other [employer] Other 10-15-2022 14:45-0400 Body weight 104.78 kg Mario Pee Other [employer] Other 10-15-2022 14:45-0400 Diastolic blood pressure 78 mm[Hg] Mario Pee Other [employer] Other 10-15-2022 14:45-0400 Respiratory rate 20 /min Mario Pee Other [employer] Other 10-15-2022 14:45-0400 SaO2% (BldA) [Mass fraction] 97 % Mario Pee Other [employer] Other 10-15-2022 14:45-0400 Systolic blood pressure 122 mm[Hg] Mario Pee Other [employer] Other 09-17-2022 13:00-0400 Body height 165.1 cm Mario Pee Other [employer] Other 09-17-2022 13:00-0400 Body mass index (BMI) [Ratio] 39.27 kg/m2 Mario Pee Other [employer] Other 09-17-2022 13:00-0400 Body temperature 96.9 [degF] Mario Pee Other [employer] Other 09-17-2022 13:00-0400 Body weight 107.05 kg Mario Pee Other [employer] Other 09-17-2022 13:00-0400 Diastolic blood pressure 78 mm[Hg] Mario Pee Other [facility] [employer] Other 09-17-2022 13:00-0400 Respiratory rate 20 /min Mario Pee Other [employer] Other 09-17-2022 13:00-0400 SaO2% (BldA) [Mass fraction] 96 % Mario Pee Other [employer] Other 09-17-2022 13:00-0400 Systolic blood pressure 124 mm[Hg] Mario Pee Other [facility] [employer] Other 05-02-2022 20:23-0500 Body temperature 98 [degF] DO Mario Pee Work Phone: [facility] 05-02-2022 20:23-0500 Diastolic blood pressure 78 mm[Hg] DO Mario Pee Work Phone: [facility] 05-02-2022 20:23-0500 Heart rate 104 /min DO Mario Pee Work Phone: [facility] 05-02-2022 20:23-0500 Respiratory rate 18 /min DO Mario Pee Work Phone: [facility] 05-02-2022 20:23-0500 SaO2% (BldA) [Mass fraction] 96 % DO Mario Pee Work Phone: [facility] 05-02-2022 20:23-0500 Systolic blood pressure 125 mm[Hg] DO Mario Pee Work Phone: [facility] 05-02-2022 16:20-0500 Inhaled oxygen flow rate 3 L/min DO Mario Pee Work Phone: [facility] 05-02-2022 06:52-0500 Body height 165.1 cm DO Mario Pee Work Phone: [facility] 05-02-2022 06:52-0500 Body mass index (BMI) [Ratio] 37.9 kg/m2 DO Mario Pee Work Phone: [facility] 05-02-2022 06:52-0500 Body weight 103.4 kg DO Mario Pee Work Phone: [facility] 04-24-2022 18:09-0500 Body height 165.1 cm DO Mario Pee Work Phone: [facility] 04-24-2022 18:09-0500 Body temperature 99.1 [degF] DO Mario Pee Work Phone: [facility] 04-24-2022 18:09-0500 Body weight 104.2 kg DO Mario Pee Work Phone: [facility] 04-24-2022 18:09-0500 Diastolic blood pressure 88 mm[Hg] DO Mario Pee Work Phone: [facility] 04-24-2022 18:09-0500 Heart rate 99 /min DO Mario Epe Work Phone: [facility] 04-24-2022 18:09-0500 Respiratory rate 19 /min DO Mario Pee Work Phone: [facility] 04-24-2022 18:09-0500 SaO2% (BldA) [Mass fraction] 96 % DO Mario Pee Work Phone: [facility] 04-24-2022 18:09-0500 Systolic blood pressure 124 mm[Hg] DO Mario Pee Work Phone: [facility] 04-17-2022 15:00-0500 Body height 165.1 cm Mario Pee Other [employer] Other 04-17-2022 15:00-0500 Body mass index (BMI) [Ratio] 38.77 kg/m2 Mario Pee Other [employer] Other 04-17-2022 15:00-0500 Body temperature 97.2 [degF] Mario Pee Other [employer] Other 04-17-2022 15:00-0500 Body weight 105.69 kg Mario Pee Other [employer] Other 04-17-2022 15:00-0500 Diastolic blood pressure 82 mm[Hg] Mario Pee Other [employer] Other 04-17-2022 15:00-0500 Respiratory rate 20 /min Mario Pee Other [employer] Other 04-17-2022 15:00-0500 SaO2% (BldA) [Mass fraction] 98 % Mario Pee Other [employer] Other 04-17-2022 15:00-0500 Systolic blood pressure 124 mm[Hg] Mario Pee Other [employer] Other 04-10-2022 08:44-0500 Body height 165.1 cm DO Mario Pee Work Phone: [facility] 04-10-2022 08:44-0500 Body temperature 98.3 [degF] DO Mario Pee Work Phone: [facility] 04-10-2022 08:44-0500 Body weight 105 kg DO Mario Pee Work Phone: [facility] 04-10-2022 08:44-0500 Diastolic blood pressure 82 mm[Hg] DO Mario Pee Work Phone: [facility] 04-10-2022 08:44-0500 Heart rate 80 /min DO Mario Pee Work Phone: [facility] 04-10-2022 08:44-0500 Respiratory rate 16 /min DO Mario Pee Work Phone: [facility] 04-10-2022 08:44-0500 SaO2% (BldA) [Mass fraction] 98 % DO Mario Pee Work Phone: [facility] 04-10-2022 08:44-0500 Systolic blood pressure 125 mm[Hg] DO Mario Pee Work Phone: [facility] 12-12-2021 14:45-0400 Body height 165.1 cm Mario Pee Other [employer] Other 12-12-2021 14:45-0400 Body mass index (BMI) [Ratio] 37.27 kg/m2 Mario Pee Other [employer] Other 12-12-2021 14:45-0400 Body temperature 96.9 [degF] Mario Pee Other [employer] Other 12-12-2021 14:45-0400 Body weight 101.61 kg Mario Pee Other [employer] Other 12-12-2021 14:45-0400 Diastolic blood pressure 80 mm[Hg] Mario Pee Other [employer] Other 12-12-2021 14:45-0400 Respiratory rate 20 /min Mario Pee Other [employer] Other 12-12-2021 14:45-0400 SaO2% (BldA) [Mass fraction] 98 % Mario Pee Other [employer] Other 12-12-2021 14:45-0400 Systolic blood pressure 124 mm[Hg] Mario Pee Other [employer] Other 10-12-2021 09:30-0400 Body height 165.1 cm Mario Pee Other [employer] Other 10-12-2021 09:30-0400 Body mass index (BMI) [Ratio] 37.27 kg/m2 Mario Pee Other [employer] Other 10-12-2021 09:30-0400 Body temperature 98.3 [degF] Mario Pee Other [employer] Other 10-12-2021 09:30-0400 Body weight 101.61 kg Mario Pee Other [employer] Other 10-12-2021 09:30-0400 Diastolic blood pressure 80 mm[Hg] Mario Pee Other [employer] Other 10-12-2021 09:30-0400 Respiratory rate 18 /min Mario Pee Other [employer] Other 10-12-2021 09:30-0400 Systolic blood pressure 110 mm[Hg] Mario Pee Other [employer] Other 09-27-2021 17:00-0400 Body height 165.1 cm Mario Pee Other [employer] Other 09-27-2021 17:00-0400 Body mass index (BMI) [Ratio] 38.1 kg/m2 Mario Pee Other [employer] Other 09-27-2021 17:00-0400 Body temperature 97.6 [degF] Mario Pee Other [employer] Other 09-27-2021 17:00-0400 Body weight 103.87 kg Mario Pee Other [employer] Other 09-27-2021 17:00-0400 Diastolic blood pressure 62 mm[Hg] Mario Pee Other [employer] Other 09-27-2021 17:00-0400 Respiratory rate 20 /min Mario Pee Other [employer] Other 09-27-2021 17:00-0400 SaO2% (BldA) [Mass fraction] 97 % Mario Pee Other [employer] Other 09-27-2021 17:00-0400 Systolic blood pressure 122 mm[Hg] Mario Pee Other [employer] Other 05-30-2021 18:15-0500 Body height 165.1 cm Mario Pee Other [employer] Other 05-30-2021 18:15-0500 Body mass index (BMI) [Ratio] 37.6 kg/m2 Mario Pee Other [employer] Other 05-30-2021 18:15-0500 Body temperature 97.3 [degF] Mario Pee Other [employer] Other 05-30-2021 18:15-0500 Body weight 102.51 kg Mario Pee Other [employer] Other 05-30-2021 18:15-0500 Diastolic blood pressure 82 mm[Hg] Mario Pee Other [employer] Other 05-30-2021 18:15-0500 Respiratory rate 20 /min Mairo Pee Other [employer] Other 05-30-2021 18:15-0500 SaO2% (BldA) [Mass fraction] 97 % Mario Pee Other [employer] Other 05-30-2021 18:15-0500 Systolic blood pressure 122 mm[Hg] Mario Pee Other [employer] Other 05-02-2021 18:30-0500 Body height 165.1 cm Mario Pee Other [employer] Other 05-02-2021 18:30-0500 Body mass index (BMI) [Ratio] 36.77 kg/m2 Mario Pee Other [employer] Other 05-02-2021 18:30-0500 Body temperature 97.6 [degF] Mario Pee Other [employer] Other 05-02-2021 18:30-0500 Body weight 100.25 kg Mario Pee Other [employer] Other 05-02-2021 18:30-0500 Diastolic blood pressure 70 mm[Hg] Mario Pee Other [employer] Other 05-02-2021 18:30-0500 Respiratory rate 20 /min Mario Pee Other [employer] Other 05-02-2021 18:30-0500 SaO2% (BldA) [Mass fraction] 96 % Mario Pee Other [employer] Other 05-02-2021 18:30-0500 Systolic blood pressure 118 mm[Hg] Mario Pee Other [employer] Other Encounters Encounter Date Encounter Type Care Provider Facility Start: 03-12-2024 End: 03-12-2024 Office outpatient visit 40 minutes Anastasia Mon PA-C Work Phone: [facility] Comment on above: Mass of right breast , unspecified quadrant (Primary Dx); Nipple discharge; Family history of breast cancer; Fibrocystic breast changes of both breasts Start: 03-12-2024 End: 03-12-2024 Subsequent hospital visit by physician [facility] Comment on above: Mass of right breast , unspecified quadrant [N63.10] Start: 03-12-2024 End: 03-12-2024 ambulatory ANASTASIA SANCHEZ Facility:[facility] Start: 02-23-2024 End: 02-23-2024 ambulatory DO Mario Pee Work Phone: [facility] Work Phone: Start: 02-23-2024 End: 02-23-2024 Patient encounter procedure DO Mario Pee Work Phone: [facility] [place] Work Phone: Start: 02-17-2024 End: 02-17-2024 ambulatory MARIO BRYANGLES Facility:[facility] Start: 02-17-2024 End: 02-17-2024 Office consultation new/estab patient 80 min Devaughn Anderson MD Work Phone: Endocrinology Comment on above: Discharge from right nipple (Primary Dx); Obesity, Class II, BMI 35-39.9 Start: 01-30-2024 End: 01-30-2024 Subsequent hospital visit by physician [facility] Comment on above: Mass of right breast , unspecified quadrant [N63.10] Start: 01-30-2024 End: 01-30-2024 ambulatory ANASTASIA SANCHEZ Facility:[facility] Start: 01-30-2024 End: 01-30-2024 Patient encounter procedure Anastasia Mon PA-C Work Phone: [facility] Comment on above: Mass of right breast , unspecified quadrant (Primary Dx); Nipple discharge; Family history of breast cancer Start: 01-19-2024 End: 01-19-2024 Patient encounter procedure Anastasia Mon PA-C Work Phone: [facility] Comment on above: Breast fibroadenoma, right (Primary Dx); Fibrocystic breast changes of both breasts; Post-operative state Start: 01-19-2024 End: 01-19-2024 ambulatory MARIO CAROLINE FORDES Facility:[facility] Start: 01-09-2024 End: 01-09-2024 ambulatory Adele Sutton MD Work Phone: [facility] Comment on above: Pain medication Start: 01-09-2024 End: 01-09-2024 E-mail encounter from caregiver Adele Sutton MD Work Phone: [facility] Start: 01-09-2024 End: 01-09-2024 Telephone encounter Adele Sutton MD Work Phone: [facility] Comment on above: Breast Problem Start: 01-08-2024 End: 01-08-2024 ambulatory ADELE SUTTON Facility:[facility] Start: 01-07-2024 Non-patient / Non-visit DO Tasha Glasgow [facility] Work Phone: Start: 01-07-2024 Encounter for other preprocedural examination FRANCHESCA MAN [facility] Start: 01-07-2024 End: 01-07-2024 ambulatory MARIO GLASGOW Facility:[facility] Start: 01-07-2024 End: 01-07-2024 Subsequent hospital visit by physician Procedure Mammo Main Mamm[facility] Start: 01-06-2024 End: 01-06-2024 Telephone encounter Camila Russo PA-C Work Phone: Pre Anesthesia Comment on above: Patient Update Start: 01-06-2024 End: 01-06-2024 Admission to [place] [id number] [facility] Start: 01-06-2024 End: 01-06-2024 ambulatory MARIO GLASGOW Facility:[facility] Start: 01-06-2024 End: 01-06-2024 Anesthesia consultation [facility] Comment on above: Pre-op evaluation (P rimary Dx); Seizure (HCC); Difficult intravenous access; Obesity (BMI 30-39.9); POTS (postural orthostatic tachycardia syndrome); Rash Start: 01-06-2024 End: 01-06-2024 Preprocedural examination done [facility] Work Phone: Start: 01-02-2024 End: 01-02-2024 Telephone encounter Salina Dickinson PA-C Work Phone: Pre Anesthesia Comment on above: Appointment Start: 01-02-2024 ambulatory MARIO GLASGOW Faci lity:[facility] Start: 12-31-2023 End: 12-31-2023 Telephone encounter Tamika Camacho APRN.CNP Work Phone: Pre Anesthesia Comment on above: Missed Appointment Start: 12-26-2023 End: 12-26-2023 Patient encounter status Adele Sutton MD Work Phone: [facility] Start: 12-26-2023 End: 12-29-2023 Telephone encounter Adele Sutton MD Work Phone: [facility] Comment on above: Breast Localization Request Start: 12-26-2023 End: 12-26-2023 ambulatory FRANCHESCA Arenas DONOVAN Facility:[facility] Start: 12-26-2023 End: 12-26-2023 Departed Referred DO Mario Glasgow Work Phone: [facility] [place] Work Phone: Start: 12-26-2023 End: 12-26-2023 ambulatory Adele Sutton MD Work Phone: [facility] Work Phone: Comment on above: Breast fibroadenoma, right (Primary Dx); Preop testing Start: 12-26-2023 End: 12-26-2023 Patient encounter procedure [facility] Work Phone: Comment on above: Breast fibroadenoma, right (Primary Dx) Start: 12-17-2023 Emergency department patient visit ANASTASIA HILTON [facility] Start: 12-17-2023 End: 12-17-2023 Emergency department patient visit CAMILLE GUERRERO [facility] Start: 12-17-2023 Non-patient / Non-visit [facility] Work Phone: Start: 11-12-2023 End: 11-12-2023 ambulatory [facility] Work Phone: Start: 11-12-2023 End: 11-12-2023 Patient encounter procedure [facility] Work Phone: Start: 10-08-2023 End: 10-08-2023 ambulatory [facility] Work Phone: Start: 10-08-2023 End: 10-08-2023 Patient encounter procedure [facility] Work Phone: Start: 10-08-2023 End: 10-08-2023 ambulatory VASU HILTON Not Available Start: 09-12-2023 Telephone encounter Franchesca lamas PA-C Work Phone: [facility] Start: 09-11-2023 Telephone encounter Lou Miller RN Work Phone: Mammography Comment on above: Results Start: 09-08-2023 End: 09-08-2023 ambulatory FRANCHESCA MAN Facility:[facility] Start: 09-08-2023 End: 09-08-2023 Subsequent hospital visit by physician Procedure Mammo Main Mammography Comment on above: Fibrocystic breast c hanges of both breasts [N60.11, N60.12] Start: 09-02-2023 Non-patient / Non-visit [facility] Work Phone: Start: 08-27-2023 End: 08-27-2023 ambulatory DO Mario MHernandez BryanPee Work Phone: [facility] Work Phone: Start: 08-27-2023 End: 08-27-2023 Patient encounter procedure DO Mario Pee Work Phone: [facility] Work Phone: Start: 08-13-2023 Non-patient / Non-visit DO Set h Pee Work Phone: [facility] Work Phone: Start: 08-11-2023 Telephone encounter Franchesca lamas PA-C Work Phone: [facility] Start: 08-07-2023 End: 08-07-2023 Subsequent hospital visit by physician Clinic Imaging Mammo Main Mammography Comment on above: Fibrocystic breast c hanges of both breasts [N60.11, N60.12] Start: 08-07-2023 End: 08-07-2023 ambulatory KELI STRICKLAND Facility:[facility] Start: 08-07-2023 End: 08-07-2023 Patient encounter procedure Franchesca Arenas Donovan PA-C Work Phone: [facility] [place] Comment on above: Mastodynia (Primary Dx); Fibrocystic breast changes of both breasts; Family history of breast cancer; Dense breasts; Nipple discharge Start: 08-06-2023 Orders Only Deeamerica Arenas Garett peterson PA-C Work Phone: [facility] Comment on above: Disorder of breast ( Primary Dx) Start: 07-30-2023 Telephone encounter Deeamerica Dagoberto lamas PA-C Work Phone: [facility] Start: 07-25-2023 Non-patient / Non-visit DO Set h Pee Work Phone: [facility] Work Phone: Start: 07-25-2023 Telephone encounter Deeamerica Dagoberto lamas PA-C Work Phone: [facility] Start: 07-14-2023 End: 07-14-2023 ambulatory LUCERO H ITZKOWITZ Not Available Start: 07-07-2023 Non-patient / Non-visit DO Set h Pee Work Phone: [facility] Work Phone: Start: 07-07-2023 End: 07-07-2023 Admission to same day surgery center DO Mario Pee Work Phone: [facility]-Ultrasound Cntr for Breast Car Start: 07-07-2023 End: 07-07-2023 ambulatory DO Mario M. Pee Work Phone: [facility] Work Phone: Start: 07-02-2023 End: 07-02-2023 ambulatory LUCERO H ITZKOWITZ Not Available Start: 07-01-2023 Non-patient / Non-visit DO Set h Pee Work Phone: [facility] Work Phone: Start: 06-30-2023 End: 06-30-2023 ambulatory LUCERO BELLE Not Available Start: 06-30-2023 Non-patient / Non-visit DO Set h Pee Work Phone: [facility] Work Phone: Start: 06-25-2023 End: 06-25-2023 ambulatory RELL GARCIA Not Available Start: 06-18-2023 End: 06-18-2023 ambulatory RELL GARCIA Not Available Start: 06-06-2023 Non-patient / Non-visit DO Set h Pee Work Phone: [facility] Work Phone: Start: 06-03-2023 End: 06-03-2023 Emergency department patient visit DO Mario Pee Work Phone: [facility] Work Phone: Start: 05-07-2023 End: 05-07-2023 ambulatory Mario Pee Other [facility] [employer] Other Start: 05-07-2023 Telephone encounter Mario Pee [facility] Start: 04-01-2023 End: 04-01-2023 Patient encounter procedure DO Mario Pee Work Phone: [facility] Work Phone: Start: 03-21-2023 End: 03-21-2023 ambulatory Mario Pee Other [employer] Other Start: 03-21-2023 Telephone encounter Mario Pee [facility] Start: 02-13-2023 End: 02-13-2023 ambulatory Mario Pee Other [employer] Other Start: 02-13-2023 Telephone encounter Mario Pee [facility] Start: 01-29-2023 End: 01-29-2023 ambulatory Mario Pee Other [employer] Other Start: 01-29-2023 Office outpatient vi sit 15 minutes Mario Pee [facility] Start: 01-21-2023 End: 01-21-2023 ambulatory Mario Pee Other [employer] Other Start: 01-21-2023 Telephone encounter Mario Pee [facility] Start: 01-01-2023 End: 01-02-2023 ambulatory Erin Chavez Facility:[facility] Start: 01-01-2023 End: 01-01-2023 Patient encounter procedure Erin Chavez [facility] Start: 12-20-2022 End: 12-20-2022 ambulatory Mario Pee Other [employer] Other Start: 12-20-2022 Telephone encounter Mario Pee [facility] Start: 12-12-2022 End: 12-12-2022 ambulatory Mario Pee Other [employer] Other Start: 12-12-2022 Office outpatient vi sit 15 minutes Mario Pee [facility] Start: 11-22-2022 End: 11-23-2022 Emergency department patient visit DO Sonam Montoya Facility:[facility] Start: 11-22-2022 End: 11-23-2022 Emergency department patient visit Sonam Montoya [facility] Start: 11-20-2022 End: 11-20-2022 ambulatory Mario Pee Other [employer] Other Start: 11-20-2022 Telephone encounter Mario Pee [facility] Start: 11-14-2022 End: 11-14-2022 ambulatory Mario Pee Other [employer] Other Start: 11-14-2022 Office outpatient vi sit 15 minutes Mario Pee [facility] Start: 10-15-2022 End: 10-15-2022 ambulatory Mario Pee Other [employer] Other Start: 10-15-2022 Office outpatient vi sit 25 minutes Mario Pee [facility] Start: 10-09-2022 End: 10-09-2022 ambulatory Mario Pee Other [employer] Other Start: 10-09-2022 Telephone encounter Mario Pee [facility] Start: 09-17-2022 End: 09-17-2022 ambulatory Mario Pee Other [employer] Other Start: 09-17-2022 Office outpatient vi sit 15 minutes Mario Pee [facility] Start: 09-17-2022 Telephone encounter Mario Pee [facility] Start: 08-13-2022 End: 08-14-[address] MARTIN M PEE Facility:[facility] Start: 08-12-2022 End: 08-13-[address] MARIO Cullen PEE Facility:[facility] Start: 08-09-2022 End: 08-09-2022 ambulatory Mario Pee Other [employer] Other Start: 08-09-2022 Telephone encounter Mario Pee [facility] Start: 07-08-2022 End: 07-08-2022 ambulatory Vi Benites Other [employer] Other Start: 07-08-2022 Telephone encounter Vi Benites [facility] Start: 06-17-2022 End: 06-17-2022 ambulatory Mario Pee Other [employer] Other Start: 06-17-2022 Telephone encounter Mario Pee [facility] Start: 06-14-2022 End: 06-14-2022 ambulatory DO Mario M. Pee Work Phone: [facility] Work Phone: Start: 06-14-2022 End: 06-14-2022 Departed Referred DO Mario Pee Work Phone: [facility]Lab [facility] [place] Work Phone: Start: 06-07-2022 End: 06-07-2022 ambulatory Mario Pee Other [employer] Other Start: 06-07-2022 Telephone encounter Mario Pee [facility] Start: 05-09-2022 End: 05-09-2022 ambulatory Mario Pee Other [employer] Other Start: 05-09-2022 Telephone encounter Mario Pee [facility] Start: 05-06-2022 End: 05-06-2022 ambulatory Mario Pee Other [employer] Other Start: 05-06-2022 Telephone encounter Mario Pee [facility] Start: 05-02-2022 End: 05-02-2022 Admission to same day surgery center DO Mario Pee Work Phone: [facility]Surgery Center [facility] [place] Start: 05-02-2022 End: 05-02-2022 ambulatory DO Mario M. Pee Work Phone: [facility] Work Phone: Start: 04-25-2022 Telephone encounter Mario Pee [facility] Start: 04-25-2022 End: 04-25-2022 Departed Referred DO Mario Pee Work Phone: [facility] [place] Start: 04-25-2022 End: 04-25-2022 ambulatory DO Mario M. Pee Work Phone: [employer] Other Start: 04-24-2022 End: 04-24-2022 Emergency department patient visit DO Mario Pee Work Phone: [facility] Work Phone: Start: 04-23-2022 End: 04-23-2022 Patient encounter procedure DO Mario Pee Work Phone: [facility]Pre-Surgical Testing Work Phone: Start: 04-17-2022 End: 04-17-2022 ambulatory Mario Pee Other [employer] Other Start: 04-17-2022 Office outpatient vi sit 15 minutes Mario Pee [facility] Start: 04-17-2022 Telephone encounter Mario Pee [facility] Start: 04-16-2022 End: 04-16-2022 ambulatory Mario Pee Other [employer] Other Start: 04-16-2022 Telephone encounter Mario Pee [facility] Start: 04-10-2022 End: 04-10-2022 ambulatory DO Mario M. Pee Work Phone: [facility] Work Phone: Start: 04-10-2022 End: 04-10-2022 Patient encounter procedure DO Mario Pee Work Phone: [facility]Pre-Surgical Testing Start: 04-09-2022 End: 04-09-2022 ambulatory Mario Pee Other [employer] Other Start: 04-09-2022 Telephone encounter Mario Pee [facility] Start: 04-08-2022 End: 04-08-2022 ambulatory Mario Pee Other [employer] Other Start: 04-08-2022 Telephone encounter Mario Pee [facility] Start: 03-28-2022 End: 03-30-[address] MARTIN M PEE Facility:[facility] Start: 03-06-2022 End: 03-06-2022 ambulatory Mario Pee Other [employer] Other Start: 03-06-2022 Telephone encounter Mario Pee [facility] Start: 02-10-2022 End: 02-10-[address] MARIO Cullen PEE Facility:[facility] Start: 02-04-2022 End: 02-04-2022 ambulatory Mario Pee Other [employer] Other Start: 02-04-2022 Telephone encounter Mario Pee [facility] Start: 01-29-2022 End: 01-29-2022 ambulatory Mario Pee Other [employer] Other Start: 01-29-2022 Telephone encounter Mario Pee [facility] Start: 01-28-2022 End: 01-28-[address] MARIO Cullen PEE Facility:[facility] Start: 12-25-2021 End: 12-25-2021 ambulatory Mario Pee Other [employer] Other Start: 12-25-2021 Telephone encounter Mario Pee [facility] Start: 12-12-2021 End: 12-12-2021 ambulatory Mario Pee Other [employer] Other Start: 12-12-2021 Office outpatient vi sit 15 minutes Mario Pee [facility] Start: 11-26-2021 End: 11-26-2021 ambulatory Mario Pee Other [employer] Other Start: 11-26-2021 Telephone encounter Mario Pee [facility] Start: 11-21-2021 End: 11-21-2021 ambulatory Mario Pee Other [employer] Other Start: 11-21-2021 Telephone encounter Mario Pee [facility] Start: 11-05-2021 End: 11-05-2021 ambulatory Mario Pee Other [employer] Other Start: 11-05-2021 Telephone encounter Mario Pee [facility] Start: 10-29-2021 End: 10-29-[address] MARTIN M PEE Facility: Start: 10-23-2021 End: 10-23-2021 ambulatory Mario Pee Other [employer] Other Start: 10-23-2021 Telephone encounter Mario Pee [facility] Start: 10-19-2021 End: 10-19-2021 ambulatory Mario Pee Other [employer] Other Start: 10-19-2021 Telephone encounter Mario Pee [facility] Start: 10-12-2021 End: 10-12-2021 ambulatory Mario Pee Other [employer] Other Start: 10-12-2021 Office outpatient vi sit 15 minutes Mario Pee [facility] Start: 10-12-2021 Telephone encounter Mario Pee [facility] Start: 10-01-2021 End: 10-01-2021 ambulatory Mario Pee Other [employer] Other Start: 10-01-2021 Telephone encounter Mario Pee [facility] Start: 09-27-2021 End: 09-27-2021 ambulatory Mario Pee Other [employer] Other Start: 09-27-2021 Office outpatient vi sit 15 minutes Mario Pee [facility] Start: 09-18-2021 End: 09-18-2021 ambulatory Mario Pee Other [employer] Other Start: 09-18-2021 Telephone encounter Mario Pee [facility] Start: 09-10-2021 End: 09-10-2021 ambulatory Mario Pee Other [employer] Other Start: 09-10-2021 Telephone encounter Mario Pee [facility] Start: 09-05-2021 End: 09-05-2021 Patient encounter procedure Erin Chavez [facility] Start: 08-13-2021 End: 08-13-2021 ambulatory Mario Pee Other [employer] Other Start: 08-13-2021 Telephone encounter Mario Pee [facility] Start: 08-01-2021 End: 08-01-2021 ambulatory Mario Pee Other [employer] Other Start: 08-01-2021 Telephone encounter Mario Pee [facility] Start: 07-06-2021 End: 07-06-2021 ambulatory Vi [place] Other [employer] Other Start: 07-06-2021 Telephone encounter Vi Easterwood [facility] Start: 06-18-2021 End: 06-18-2021 ambulatory Mario Pee Other [employer] Other Start: 06-18-2021 Telephone encounter Mario Pee [facility] Start: 06-08-2021 End: 06-08-2021 ambulatory Maroi Pee Other [employer] Other Start: 06-08-2021 Telephone encounter Mario Pee [facility] Start: 05-30-2021 End: 05-30-2021 ambulatory Mario Pee Other [employer] Other Start: 05-30-2021 Office outpatient vi sit 15 minutes Mario Pee [facility] Start: 05-21-2021 End: 05-21-2021 ambulatory Mario Pee Other [employer] Other Start: 05-21-2021 Telephone encounter Mario Pee [facility] Start: 05-09-2021 End: 05-09-2021 ambulatory Mario Pee Other [employer] Other Start: 05-09-2021 Telephone encounter Mario Pee [facility] Start: 05-08-2021 End: 05-08-2021 ambulatory Mario Pee Other [employer] Other Start: 05-08-2021 Telephone encounter Mario Glasgow [facility] Start: 05-02-2021 End: 05-02-2021 ambulatory Mariosimi Glasgow Other [facility] [employer] Other Start: 05-02-2021 Office outpatient vi sit 15 minutes Mario Pee [facility] Procedures Date Procedure Procedure Detail Performing Clinician Start: 03-12-2024 Us breast uni real t [place] with image limited Anastasia Mon PA-C Work Phone: Start: 03-12-2024 Digital breast tomos ynthesis unilateral Anastasia Mon PA-C Work Phone: Start: 01-30-2024 Us breast uni real t [place] with image limited Anastasia MONTEZC Work Phone: Start: 01-07-2024 Diagnostic mammograp hy computer-aided detcj uni Adele Sutton MD Work Phone: Start: 01-07-2024 Perq breast loc kym ce placemt 1st lesio us imag Adele Sutton MD Work Phone: Start: 12-26-2023 Bacteria identified in Urine by Culture DO Mariosimi BryanPee Work Phone: Start: 12-26-2023 Urine culture DO Mario R uggles Work Phone: Start: 09-08-2023 Bx breast w/device 1 st lesion ultrasound guid Franchesca Man PA-C Work Phone: Start: 09-08-2023 Digital breast tomos ynthesis unilateral Franchesca FINNEGAN-C Work Phone: Start: 09-02-2023 Cortisol total Comment on above: Please Note: The ref erence interval and flagging for this test is for an AM collection. If this is a PM collection please use: Cortisol PM: 2.3-11.9Performed at: [facility], [place] [id number] Director: Joby Hackett PhD, Phone: [phone] Start: 08-07-2023 Us breast uni real t [...] DO Mario Pee Work Phone: Start: 04-10-2022 Urine culture DO Mario R [...] Treatment Date Care Activity Detail Author Start: 12-29-2024 End: 12-29-2024 Patient encounter procedure 12/29/2024 11:15 AM EDT Office Visit [facility] [address] [place], [place] [id number] Tegan Guerra, MS [address] [place], [place] [phone] [facility] Comment on above: Everything Start: 04-05-2024 End: 04-05-2024 Patient encounter procedure 04/05/2024 2:45 PM EST Office Visit Breast Center [address] [place] [id number] Anastasia Mon PA-C [address] [place] [address] 2 month follow up/staff [facility] Comment on above: 2 month follow up/st aff [facility] Start: 02-17-2024 End: 05-18-2024 INSULIN LIK GR FAC I INSULIN LIK GR FAC I Lab Routine Obesity, Class II, BMI 35-39.9 Expected: 02/17/2024, Expires: 05/18/2024 [facility] Work Phone: Comment on above: Expected: 02/17/2024 , Expires: 05/18/2024 Start: 02-17-2024 End: 05-18-2024 Thyrotropin [Units/volume] in Serum or Plasma THYROID STIMULATING HORMONE Lab Routine Obesity, Class II, BMI 35-39.9 Expected: 02/17/2024, Expires: 05/18/2024 [facility] Comment on above: Expected: 02/17/2024 , Expires: 05/18/2024 Start: 02-17-2024 End: 02-17-2024 Patient encounter procedure 02/17/2024 1:00 PM EDT Office Visit Endocrinology [address] [place] [address] Devaughn Anderson MD [address] [facility] [address] [place] [address] hormone issue Endocrinology Comment on above: hormone issue Start: 01-19-2024 End: 01-19-2024 Patient encounter procedure 01/19/2024 2:45 PM EDT Office Visit Breast Center [address] [place] [phone] Anastasia Mon PA-C [address] [place] [address] post op Breast Center Comment on above: post op Start: 01-08-2024 End: 01-08-2024 Admission to same day surgery center Ambulatory Surgery Comment on above: RIGHT ZAYDA EXCISIONA L BIOPSY Start: 01-08-2024 End: 01-08-2024 Exc breast les preop plmt rad marker open 1 [facility] Start: 01-08-2024 Subsequent hospital visit by physician Ambulatory Surgery Comment on above: Breast fibroadenoma, right [D24.1] Start: 01-08-2024 End: 01-08-2024 Admission to same day surgery center 01/08/2024 7:30 AM EDT - 01/08/2024 8:50 AM EDT Surgery Ambulatory Surgery [address] [place] [address] Adele Sutton MD [address] [place] [address] RIGHT ZAYDA EXCISIONAL BIOPSY Ambulatory Surgery Comment on above: RIGHT ZAYDA EXCISIONA L BIOPSY Start: 01-08-2024 End: 01-08-2024 Exc breast les preop plmt rad marker open 1 les EXCISION BREAST LESION IDENTIFIED BY PREOPERATIVE PLACEMENT RADIOLOGICAL MARKER, OPEN, SINGLE LESION Breast fibroadenoma, right 01/08/2024 7:30 AM EDT [facility] Start: 01-08-2024 Subsequent hospital visit by physician 01/08/2024 7:30 AM EDT Hospital Encounter Ambulatory Surgery [address] [place] [address] Adele Sutton MD [address] [place] [address] Breast fibroadenoma, right [D24.1] Ambulatory Surgery Comment on above: Breast fibroadenoma, right [D24.1] Start: 01-07-2024 End: 01-07-2024 Patient encounter procedure 01/07/2024 9:30 AM EDT Appointment Mammography [address] [phone] z[facility]da Mammography Comment on above: zayda Start: 12-31-2023 End: 12-31-2023 Anesthesia consultation 12/31/2023 3:00 PM EDT PAT Pre Anesthesia [address] [place], [place] [phone] virual preop Pre Anesthesia Comment on above: virual preop Start: 12-26-2023 Bacteria identified in Urine by Culture [facility] Start: 12-26-2023 End: 03-26-2024 CBC W Auto Differential panel - Blood COMPLETE BLOOD COUNT AND DIFFERENTIAL Lab Routine Preop testing Expected: 12/26/2023 (Approximate), Expires: 03/26/2024 [facility] Comment on above: Expected: 12/26/2023 (Approximate), Expires: 03/26/2024 Start: 12-26-2023 End: 03-26-2024 Comprehensive metabolic 2000 panel - Serum or Plasma COMPREHENSIVE METABOLIC PANEL Lab Routine Preop testing Expected: 12/26/2023 (Approximate), Expires: 03/26/2024 [facility] Work Phone: Comment on above: Expected: 12/26/2023 (Approximate), Expires: 03/26/2024 Start: 12-21-2023 Covid-19 Vaccine () Covid-19 Vaccine () [facility] Start: 12-21-2023 Covid-19 Vaccine (1 - 2024-25 season) Covid-19 Vaccine ( season) [facility] Start: 12-21-2023 Influenza vaccination [facility] Start: 09-16-2023 End: 09-16-2023 Patient encounter procedure 09/16/2023 9:00 AM EDT Office Visit Breast Center [address] [address] Adele Sutton MD [address] [place] [address] New Consult Breast Center Comment on above: New Consult Start: 09-08-2023 End: 09-08-2023 Patient encounter procedure 09/08/2023 2:00 PM EDT Appointment Mammography [address] [address] RIGHT BREAST ULTRASOUND GUIDED CORE BIOPSY Mammography Comment on above: RIGHT BREAST ULTRASO UND GUIDED CORE BIOPSY Start: 08-07-2023 End: 11-06-2023 Thyrotropin [Units/volume] in Serum or Plasma THYROID STIMULATING HORMONE Lab Routine Nipple discharge Expected: 08/07/2023, Expires: 11/06/2023 [facility] Work Phone: Comment on above: Expected: 08/07/2023 , Expires: 11/06/2023 Start: 04-21-2023 Behavioral Health Screening Behavioral Health Screening [facility] Start: 12-20-2022 Covid-19 Vaccine ( season) Covid-19 Vaccine () [facility] Start: 05-02-2022 [facility] Start: 04-25-2022 Total hysterectomy v ia vaginal approach OR Vag Hyster Lap Assist TLH/LAVH (Not Applicable) [facility] Start: 04-24-2022 Blood chemistry [facility] Start: 04-24-2022 Hepatic function panel [facility] Start: 04-24-2022 Lipase measurement [facility] Start: 04-24-2022 [facility] Start: 2019 Screening for malign ant neoplasm of cervix HPV Testing [facility] Start: 02-06-2015 Screening for malign ant neoplasm of cervix Pap Testing [facility] Start: 04-15-2014 Hepatitis B Vaccine (3 of 3 - 19+ 3-dose series) Hepatitis B Vaccine (3 of 3 - 19+ 3-dose series) [facility] Start: 02-06-2013 Screening for malign ant neoplasm of cervix Cervical Cancer Screening [facility] Start: 02-19-2008 Hepatitis B Vaccine (1 of 3 - 19+ 3-dose series) Hepatitis B Vaccine (1 of 3 - 19+ 3-dose series) [facility] Start: 02-19-2008 Urine microalbumin profile DTaP,Tdap,Td Vaccine (1 - Tdap) [facility] Start: 2007 Anxiety Screening Anxiety Screening [facility] Start: 2007 Depression Screening Depression Scre ening [facility] Start: 2007 Hepatitis C screening Hepatitis C Sc reening [facility] Start: 2007 HIV screening HIV Screening [facility] Bacteria identified in Urine by Culture [facility] Bacteria identified in Urine by Culture [facility] Exc breast les preop plmt rad marker open 1 les EXCIS BREAST LES W XRAY MARKER Procedures Routine Breast fibroadenoma, right Ordered: 12/26/2023 [facility] Comment on above: Ordered: 12/26/2023 End: 09-04-2024 MG Breast - bilateral Diagnostic SAJI DIAGNOSTIC BILATERAL Radiology Routine Disorder of breast 1 Occurrences starting 08/06/2023 until 09/04/2024 [facility] Work Phone: Comment on above: 1 Occurrences starti ng 08/06/2023 until 09/04/2024 End: 01-24-2025 MG Guidance for needle localization of Breast - right SAJI NDL LOC W SAJI GD RIGHT Radiology Routine Breast fibroadenoma, right 1 Occurrences starting 12/26/2023 until 01/24/2025 [facility] Comment on above: 1 Occurrences starti ng 12/26/2023 until 01/24/2025 End: 04-11-2025 MR Breast - bilateral WO and W contrast IV MRI BREAST WO/W IVCON BILATERAL Radiology Routine Nipple discharge 1 Occurrences starting 03/12/2024 until 04/11/2025 [facility] Work Phone: Comment on above: 1 Occurrences starti ng 03/12/2024 until 04/11/2025 Patient Education Seizures, Adult ED [facility] Work Phone: Patient referral [facility] Work Phone: SURGICAL PATHOLOGY [facility] Work Phone: Comment on above: Release Upon Orderin g for 1 Occurrences starting 09/08/2023, 1 completed URINE FREE CORTISOL BY LC-MS/MS URINE FREE CORTISOL BY LC-MS/MS Lab Routine Obesity, Class II, BMI 35-39.9 Ordered: 02/17/2024 [facility] Comment on above: Ordered: 02/17/2024 [facility] Immunizations Immunization Date Immunization Notes Care Provider Tiffany workman 2014 influenza virus vaccine, unspecified formulation Franchesca Man PA-C Work Phone: [facility] NEGATED: Highlighted row has not occurred!05-16-2021 SARS-CoV-2 (COVID-19) Ad26 vaccine, recombinant Erin Chavez [facility] Payers Date Payer Category Payer Self-pay [id number] 2022 Medicaid [employer] [id number] 2022-Present [phone] [address] [place] [address] Medicaid [id number] 1989 Unknown [id number] [id number]3 1989 Unknown [id number] 2.16.840.1.849275.3.579.2.593 1989 Unknown [id number] 2.16.840.1.781452.3.579.2.593 1989 Unknown [id number] 2.16.840.1.501766.3.579.2.593 1989 Unknown [id number] 2.16.840.1.182365.3.579.2.593 1989 Unknown [id number] 2.16.840.1.684030.3.579.2.593 1989 Unknown [id number] 2.16.840.1.179948.3.579.2.593 1989 Unknown [id number] 2.16.840.1.753675.3.579.2.727 1989 Unknown [id number] 2.16.840.1.173023.3.579.2.727 1989 Unknown [id number] 2.16.840.1.415164.3.579.2.1259 1989 Unknown [id number] 2.16.840.1.591496.3.579.2.1259 1989 Unknown [id number] 2.16.840.1.567067.3.579.2.1259 1989 Unknown [id number] 2.16.840.1.700015.3.579.2.1259 1989 Unknown [id number] 2.16.840.1.631705.3.579.2.1259 1989 Unknown [id number] 2.16.840.1.790683.3.579.2.1259 1989 Unknown [id number] 2.16.840.1.042896.3.579.2.1259 1959 Medicaid [id number] 1959 Unknown [id number] 2.16.840.1.914263.19 Unknown Regular Auto/Liability [id number] Unknown [id number] 2.16.840.1.882233.3.579.2.531 Unknown [id number] 2.16.840.1.751152.3.579.2.531 Unknown [id number] 2.16.840.1.080159.3.579.2.531 Social History Date Type Detail Facility Start: 05-16-2021 End: 12-26-2023 Tobacco smoking status Never smoked tobacco (finding) [facility] [employer] Other Tobacco smoking status Never [facility] Start: 01-13-2023 End: 08-07-2023 Sex Assigned At Female [facility] [employer] Other Start: 1990 Sex Assigned At Female [facility] Tobacco smoking status NHIS Tobacco smoking consumption unknown [facility] Start: 01-13-2023 End: 08-07-2023 History of Social function [facility] Start: 1990 Sex Assigned At Not on file [facility] Start: 12-26-2023 Tobacco use and exposure Smokeless tobacco non-user [facility] Start: 12-26-2023 End: 03-12-2024 Alcoholic beverage intake Current drinker of alcohol (finding) [facility] Start: 12-26-2023 Alcohol Comment socially [facility] Start: 01-06-2024 Alcohol Comment about 1-2 time s per month will have ~2 drinks [facility] NEGATED: Highlighted row [facility] Medical Equipment Procedure Code Equipment Code Equipment Origin al Text Equipment Identifier Dates Ultrasoujnd Clip [id number] Start: 09-08-2023 Comment on above: Description: Hydroma rk coil Ultrasound Zayda [id number] Start: 01-07-2024 Comment on above: Description: Zayda Goals Date Patient Goal Desired Activity /State Functional Status Date Assessment Result Facility 11-22-2022 Functional Status N/A [facility] Clinical Notes 03-06-2021 to 03-12-2024 Sharon Oro, RT(R) - 03/12/2024 10:30 AM Lori Cook RT(R) - 03/12/2024 10:30 AM Anastasia White PA-C - 03/12/2024 10:00 AM ESTPatient InstructionsPatient Instructions Note Date & Type Note Facility 03-12-2024 History of Present illness Narrative Radiology Service Progress Note PATIENT NAME: Sully Enriquez DATE OF SERVICE: March 12, 2024 TIME: 10:48 AM PATIENT IDENTITY VERIFICATION COMPLETED USING TWO [...] PATIENT PRESENTS WITH AN IMPLANTABLE OR ATTACHED VARIETY PERFORMER: No RADIOLOGY DEPARTMENT: Mammography PERIPHERAL IV DATA: Not applicable SIGNED BY: RT Tereso(Jd) March 12, 2024 10:48 AM Radiology Service Progress Note PATIENT NAME: Sully Enriquez DATE OF SERVICE: March 12, 2024 TIME: 11:41 AM PATIENT IDENTITY VERIFICATION COMPLETED USING TWO (2) IDENTIFIERS: Name and Date of confirmed by patient verbally. FALL SCREENING: Has the patient had 2 falls in the last year or 1 fall with injury or currently using an Ambulatory Assistive Device (Walker, Cane, Wheelchair, Crutches, etc.)? No PATIENT GENDER DATA: Female. status: : No status: NO. PATIENT RELEVANT IMPLANT DATA REVIEWED: Not Applicable PATIENT PRESENTS WITH AN IMPLANTABLE OR ATTACHED VARIETY PERFORMER: No RADIOLOGY DEPARTMENT: Mammography PERIPHERAL IV DATA: Not applicable SIGNED BY: RT Latia(Jd) March 12, 2024 11:41 AM documented in this encounter [facility] 03-12-2024 Note HNO ID: [id number] Author: SHARON ORO RT(Jd) Service: ? Author Type: Technologist Type: Progress Notes Filed: 03/12/2024 10:48 Note Text: Radiology Service Progress Note PATIENT NAME: Sully Enriquez DATE OF SERVICE: March 12, 2024 TIME: 10:48 AM PATIENT IDENTITY VERIFICATION COMPLETED USING TWO [...] PATIENT PRESENTS WITH AN IMPLANTABLE OR ATTACHED VARIETY PERFORMER: No RADIOLOGY DEPARTMENT: Mammography PERIPHERAL IV DATA: Not applicable SIGNED BY: RT Tereso(R) March 12, 2024 10:48 AM [facility] 03-12-2024 Note HNO ID: [id number] Author: LORI MCNEILL RT(R) Service: Radiology Author Type: Technologist Type: Progress Notes Filed: 03/12/2024 11:42 Note Text: Radiology Service Progress Note PATIENT NAME: Sully Enriquez DATE OF SERVICE: March 12, 2024 TIME: 11:41 AM PATIENT IDENTITY VERIFICATION COMPLETED USING TWO (2) IDENTIFIERS: Name and Date of confirmed by patient verbally. FALL SCREENING: Has the patient had 2 falls in the last year or 1 fall with injury or currently using an Ambulatory Assistive Device (Walker, Cane, Wheelchair, Crutches, etc.)? No PATIENT GENDER DATA: Female. status: : No status: NO. PATIENT RELEVANT IMPLANT DATA REVIEWED: Not Applicable PATIENT PRESENTS WITH AN IMPLANTABLE OR ATTACHED VARIETY PERFORMER: No RADIOLOGY DEPARTMENT: Mammography PERIPHERAL IV DATA: Not applicable SIGNED BY: RT Latia(R) March 12, 2024 11:41 AM [facility] 03-12-2024 History of Present illness Narrative Images from the original note were not included. [facility] [place] Department of Breast Surgical Oncology [facility] FOLLOW UP HPI: Sully Enriquez is a 34 year old female with a history of right breast fibroadenoma presents today status post right breast excisional biopsy on 01/08/2024. Final path showed fibroadenoma and benign breast tissue. Now presenting with right breast fullness and right nipple discharge. 01/30/2024 Ms. Enriquez was seen for post op follow up on 01/19/2024. At that time, she was doing well from surgery and had no additional breast concerns. Patient reports about 4-5 days ago she experienced bloody discharge from the right nipple while manipulating her breast. She noted a second occurrence of bloody nipple discharge which was spontaneous the next day. She has not noticed any subsequent episodes of nipple discharge although she feels the right nipple was slightly inverting last night. She reports a distant history of clear nipple discharge several months ago. Ms. Enriquez also noticed two new non-tender lumps in the right breast about 1 week ago- one quarter-sized in the superior breast and the other pea-sized lump in the inferior breast which are not near her surgical site. Patient has limited contact with paternal side of family, however, in the past couple weeks she has learned that 3 paternal aunts have had breast cancer. She does not know ages of diagnoses, but was told one aunt was diagnosed in her 40s. Her father has 11 siblings total, although she is unsure of the # of sisters. 03/12/2024 Patient reports persistence of right spontaneous nipple discharge. She had one more episode of bloody nipple discharge (3 total) and has since been experiencing clear right nipple discharge about twice daily which she finds in her bra. She also notes 2-3 new non-tender lumps of concern on right breast since she was seen 01/29, two over the upper breast and one in the LIQ. She states that the right breast feels amos than left which extends to her right axilla. She did see endocrinology 02/17/24 and it was felt the nipple discharge was not hormonally mediated. PERSONAL BREAST HISTORY: Past breast history (prior to this encounter) is as follows: Breast biopsy: 07/07/23 right breast 8oclock 4-5cmfn, fibrocystic change, concordant Breast cysts: No Breast surgery: 01/08/24 right breast excisional biopsy- fibroadenoma Breast cancer: No CANCER SURVEILLANCE: Mammograms: 06/25/23 [...] No She is s/p hysterectomy for endometriosis. Ovaries remain intact. She does not use any control. History of Mantle Radiation prior to the age of 29: No Obesity: Yes, 38.11 kg/m Current Weight: 229 lb Mammographic density: The breasts are heterogeneously dense which limits the sensitivity of mammography Personal History of Benign Atypical Breast Biopsy: No Alcohol use: occasional PAST MEDICAL HISTORY: PAST MEDICAL HISTORY Diagnosis Date Insomnia Kidney stone SURGICAL HISTORY: PAST SURGICAL HISTORY Procedure Laterality Date BUNIONECTOMY, LAPIDUS-TYPE rt foot BX OF BREAST; INCISIONAL RT BREAST 2X PAST SURGICAL HISTORY OF Nephrostomy tube removed PAST SURGICAL HISTORY OF hysterectomy still have ovaries PAST SURGICAL HISTORY OF cyst on ovaries removed several time PAST SURGICAL HISTORY OF kidney stones PAST SURGICAL HISTORY OF exploratory surgery for endometriosis PAST SURGICAL HISTORY OF LEEP procedure PAST SURGICAL HISTORY OF colonoscopy x 2 SALPINGECTOMY Bilateral 2010 SOCIAL HISTORY: Social History Socioeconomic History Marital status: Tobacco Use Smoking status: Never Smokeless tobacco: Never Substance and Sexual Activity Alcohol use: Yes Comment: about 1-2 times per month will have ~2 drinks Drug use: Never Social Determinants of Health Financial Resource Strain: Low Risk (12/17/2023) Received from [facility] Overall Financial Resource Strain (CARDIA) Difficulty of Paying Living Expenses: Not hard at all Food Insecurity: No Food Insecurity (12/17/2023) Received from [facility] Hunger Vital Sign Within the past 12 months, you worried that your food would run out before you got the money to buy more.: Never true Transportation Needs: No Transportation Needs (12/17/2023) Received from [facility] Transportation In the past 12 months, has lack of transportation kept you from medical appointments or from getting medications?: No Housing Stability: Low Risk (12/17/2023) Received from [facility] Housing Stability Vital Sign In the last 12 months, was there a time when you did not have a steady place to sleep or slept in a skilled nursing (including now)?: No FAMILY HISTORY: Family history of breast cancer: paternal grandmother, unsure of age, no genetic testing, three paternal aunts (one diagnosed in her 40s), limited contact with paternal side of family Family history of ovarian cancer: None Number of sisters: 2 Number of maternal aunts: 2 Number of paternal aunts: 6 (per prior documentation), patient reports 11 siblings total and unsure of # of females Ashkenazi Ancestry: no Has Patient had Genetic Testing? No Other Cancer: father with lung cancer, living There is no family history of prostate, colon, uterine, pancreatic, gastric, brain, renal cell or thyroid cancer. There is no family history of melanoma, sarcoma or leukemia. Osteoporosis: None Stroke: None Blood Clot: None Heart attack: None Thyroid Nodule or Goiter: None Autism: None CURRENT MEDICATIONS: Current Outpatient Medications Medication Instructions acetaminophen (TYLENOL) 650 mg, ORAL, EVERY 6 HOURS NEEDED ALPRAZolam (XANAX) 1 mg, ORAL, 2 TIMES DAILY NEEDED ondansetron (ZOFRAN) 4 mg, ORAL, EVERY 8 HOURS NEEDED Phentermine HCl 37.5 mg tablet DAILY tizanidine HCl (ZANAFLEX ORAL) Zanaflex ALLERGIES: ALLERGIES Allergen Reactions Ciprofloxacin Unknown Dicyclomine Unknown Ketorolac Unknown Lorazepam Unknown Methylprednisolone Other: See Comments Rash, blistering Nitrofurantoin Unknown Penicillins Unknown Prednisone Intolerance Reglan [Metoclopram* Unknown Zithromax [Azithrom* Unknown REVIEW OF SYSTEMS: GENERAL: No weight loss, malaise or fevers NECK: Negative for lumps, goiter, pain and significant neck swelling RESPIRATORY: Negative for cough, hemoptysis, wheezing, COPD, dyspnea or shortness of breath CARDIOVASCULAR: Negative for chest pain, leg swelling, hypertension, CHF or palpitations GI: No nausea, vomiting, or diarrhea : No history of dysuria, frequency or incontinence CERTIFIED MEDICAL CODER: Negative for abnormal vaginal bleeding, abnormal vaginal discharge MUSCULOSKELETAL: Negative for joint pain or swelling, back pain or muscle pain SKIN: Negative for lesions, rash, and itching HEMATOLOGY/LYMPHOLOGY: Negative for prolonged bleeding, bruising easily or swollen nodes ENDOCRINE: Negative for cold or heat intolerance, polyuria, polydipsia and goiter PHYSICAL EXAM: Ht 165.1 cm (5' 5 ) Wt 105.7 kg (233 lb) BMI 38.77 kg/m Body mass index is 38.77 kg/m . Physical Exam Constitutional: General: She is not in acute distress. Appearance: Normal appearance. She is not ill-appearing. Pulmonary: Effort: Pulmonary effort is normal. Chest: Breasts: Right: No inverted nipple, nipple discharge or tenderness. Left: No inverted nipple, nipple discharge or tenderness. Comments: Nipple piercings present bilaterally. Black dots on image represent areas of nodularity/increased fibrocystic change in the area of patient's palpable concern at 12:00 4 cmFN, 12:00 3 cmFN, 12:00 1 cmFN and 6:00 4 cmFN. No nipple discharge able to be elicited on exam. Well healing surgical incision in LOQ. Lymphadenopathy: Upper Body: Right upper body: No axillary adenopathy. Left upper body: No axillary adenopathy. The sensitive examination was discussed with the Patient or Patient's Authorized Manager Air. As applicable, any other physician, advance practice provider, medical student, or other health professional student that will be observing or involved in the sensitive examination for educational or training purposes was discussed with the Patient or Authorized Manager Air. The Patient or Authorized Manager Air has agreed to proceed with the sensitive examination. (Sensitive examination includes inspection and/or palpation of the breasts, pelvis, prostate and anorectal regions) IMAGING TO DATE: 03/12/2024 Right diagnostic MMG w/ dominic and Rt breast US MAMMOGRAM FINDINGS: The breast is heterogeneously dense, which may obscure small masses. Finding 1: There are no suspicious mammographic findings to correspond with the areas of palpable concern in the right breast at 6 o'clock and at 12 o'clock. Finding 2: There are no suspicious mammographic findings to correspond with the non-bloody nipple discharge in the right breast. Finding 3: There are post-operative changes in the right breast. ULTRASOUND TECHNIQUE: Targeted ultrasound of the indicated area was performed. Cam scale images were saved. ULTRASOUND FINDINGS: Finding 1: There is no sonographic correlates for the palpable findings at 6:00 4 cmfn; 12:00 1 cmfn; 12:00 3cmfn; and 12:00 4cmfn. Finding 2: There is no sonographic correlate for the nipple discharge. There is benign duct ectasia within the subareolar region. IMPRESSION: Finding 1: There are no suspicious mammographic or sonographic findings in the right breast to correlate with the multiple palpable findings. Finding 2: There are no suspicious mammographic or sonographic findings in the right breast to correlate with the nipple discharge. Clinical management is recommended. Finding 3: Post-operative changes in the right breast are benign. Return to annual screening mammogram is recommended. Annual mammogram will be due at age 39. There is no imaging correlate to the area of clinical concern. Clinical correlation and follow-up is recommended. BI-RADS Category 2: Benign PATHOLOGY: N/A TC Risk Assessment: Assessment IMPRESSION/PLAN: Sully Enriquez is a 33 year old year old female s/p right breast excisional biopsy on 01/08/2024 with new onset right bloody nipple discharge and concerns for palpable findings. There is no evidence of malignancy. The patient was reassured as to the benign nature of her clinical, mammographic, and sonographic findings. We discussed that pathologic nipple discharge, that which is spontaneous, from a single duct orifice, and bloody or clear, is usually a sign of a benign intraductal papilloma or benign duct ectasia, but that an underlying malignancy can be found in 5-21% of patients with pathologic nipple discharge who undergo biopsy. The risk of malignancy increases with age. In women age 40-60, there is a 10% risk. Given the persistence of the unilateral spontaneous bloody/clear nipple discharge in the setting of negative diagnostic imaging, we discussed pursuing a breast MRI. Patient agrees with this plan. We will follow up after breast MRI to review results. Genetics referral made: Yes: Reason: multiple paternal family members with breast cancer. Chemoprevention discussion: N/A The patient is advised to exercise regularly, achieve/maintain ideal body weight, and to limit alcohol consumption to less than 7 drinks weekly for breast cancer risk reduction and overall health. The patient has an active breast problem and will be seen in follow up in the breast center. She will return for follow-up evaluation after breast MRI. She will call me in the interim should she have any questions or concerns. I spent a total of 45 minutes on the date of the service which included preparing to see the patient, [id number] patient care, completing clinical documentation, obtaining and/or reviewing separately obtained history, performing a medically appropriate examination, counseling and educating the patient/family/caregiver, ordering medications, tests, or procedures, and communicating results to the patient/family/caregiver. Anastasia Mon PA-C documented in this encounter [facility] 03-12-2024 Note HNO ID: [id number] Author: ANASTASIA MON PA-C Service: ? Author Type: Physician Ditto Machine Operator Type: Progress Notes Filed: 03/15/2024 16:18 Note Text: [facility] Department of Breast Surgical Oncology [facility] FOLLOW UP HPI: Sully Enriquez is a 34 year old female with a history of right breast fibroadenoma presents today status post right breast excisional biopsy on 01/08/2024. Final path showed fibroadenoma and benign breast tissue. Now presenting with right breast fullness and right nipple discharge. 01/30/2024 Ms. Enriquez was seen for post op follow up on 01/19/2024. At that time, she was doing well from surgery and had no additional breast concerns. Patient reports about 4-5 days ago she experienced bloody discharge from the right nipple while manipulating her breast. She noted a second occurrence of bloody nipple discharge which was spontaneous the next day. She has not noticed any subsequent episodes of nipple discharge although she feels the right nipple was slightly inverting last night. She reports a distant history of clear nipple discharge several months ago. Ms. Enriquez also noticed two new non-tender lumps in the right breast about 1 week ago- one quarter-sized in the superior breast and the other pea-sized lump in the inferior breast which are not near her surgical site. Patient has limited contact with paternal side of family, however, in the past couple weeks she has learned that 3 paternal aunts have had breast cancer. She does not know ages of diagnoses, but was told one aunt was diagnosed in her 40s. Her father has 11 siblings total, although she is unsure of the # of sisters. 03/12/2024 Patient reports persistence of right spontaneous nipple discharge. She had one more episode of bloody nipple discharge (3 total) and has since been experiencing clear right nipple discharge about twice daily which she finds in her bra. She also notes 2-3 new non-tender lumps of concern on right breast since she was seen 01/29, two over the upper breast and one in the LIQ. She states that the right breast feels amos than left which extends to her right axilla. She did see endocrinology 02/17/24 and it was felt the nipple discharge was not hormonally mediated. PERSONAL BREAST HISTORY: Past breast history (prior to this encounter) is as follows: Breast biopsy: 07/07/23 right breast 8oclock 4-5cmfn, fibrocystic change, concordant Breast cysts: No Breast surgery: 01/08/24 right breast excisional biopsy- fibroadenoma Breast cancer: No CANCER SURVEILLANCE: Mammograms: 06/25/23 [...] No She is s/p hysterectomy for endometriosis. Ovaries remain intact. She does not use any control. History of Mantle Radiation prior to the age of 29: No Obesity: Yes, 38.11 kg/m Current Weight: 229 lb Mammographic density: The breasts are heterogeneously dense which limits the sensitivity of mammography Personal History of Benign Atypical Breast Biopsy: No Alcohol use: occasional PAST MEDICAL HISTORY: PAST MEDICAL HISTORY Diagnosis Date Insomnia Kidney stone SURGICAL HISTORY: PAST SURGICAL HISTORY Procedure Laterality Date BUNIONECTOMY, LAPIDUS-TYPE rt foot BX OF BREAST; INCISIONAL RT BREAST 2X PAST SURGICAL HISTORY OF Nephrostomy tube removed PAST SURGICAL HISTORY OF hysterectomy still have ovaries PAST SURGICAL HISTORY OF cyst on ovaries removed several time PAST SURGICAL HISTORY OF kidney stones PAST SURGICAL HISTORY OF exploratory surgery for endometriosis PAST SURGICAL HISTORY OF LEEP procedure PAST SURGICAL HISTORY OF colonoscopy x 2 SALPINGECTOMY Bilateral 2010 SOCIAL HISTORY: Social History Socioeconomic History Marital status: Tobacco Use Smoking status: Never Smokeless tobacco: Never Substance and Sexual Activity Alcohol use: Yes Comment: about 1-2 times per month will have ~2 drinks Drug use: Never Social Determinants of Health Financial Resource Strain: Low Risk (12/17/2023) Received from [facility] Overall Financial Resource Strain (CARDIA) Difficulty of Paying Living Expenses: Not hard at all Food Insecurity: No Food Insecurity (12/17/2023) Received from [facility] Hunger Vital Sign Within the past 12 months, you worried that your food would run out before you got the money to buy more.: Never true Transportation Needs: No Transportation Needs (12/17/2023) Received from [facility] Tr (more content not included)... [facility] 02-17-2024 Instructions Devaughn Anderson MD - 02/17/2024 1:53 PM EDT 24 hour urine collection: -go to lab to rock picker container -start collecting urine one morning -flush first urine that morning down toilet, then collect all urine after that in container until the following morning (include first urine of that morning into collection) -keep urine refrigerated during collection -drop off urine after collection is finished and get a blood test done that day documented in this encounter [facility] 02-17-2024 History of Present illness Narrative Images from the original note were not included. ENDOCRINOLOGY REASON FOR CONSULTATION: Nipple discharge The patient is referred by Franchesca Man PA-C. My recommendations will be sent to the referring physician/provider either by letter or shared electronic medical record. HISTORY HPI: Sully Enriquez is a 33 year old female who comes in here for evaluation of nipple discharge. Pt report right discharge since around 10/2023. Pt thinks this is coming from one pore. She had an excision of a mass in R breast on 01/08/24. The diagnosis was: Fibroadenoma. - Adjacent breast tissue with cystic change, apocrine metaplasia, usual ductal hyperplasia, and columnar cell change. - Core biopsy site changes and clip x 2. Pt has noticed some bloody right nipple discharge after the surgery. Pt had and had unsuccessful breast feeding attempt in 2010. #Weight gain: Since age 26. Pt states she put about 100 lbs in one year, mw/o changes in activity, nutrition nor a . Fluctuating within +/- 10 lbs. No family h/o overweight or obesity. No changes in muscle strength. Pt was running about 2 mi daily until age 26. Pt walks about 0.5-1 mi per day. Does some resistance exercise times per week. Has tried a diet with 1 cup of oat meal 6 oz of meat for lunch and dinner. No pop or sugary things. Drinks water and lemonade. Pt eats asparagus or sweat potatoes. Review of Systems Constitutional: Positive for fatigue and night sweats. Negative for recent unintentional weight change. HENT: Negative for trouble swallowing, postnasal drip and thyroid pain (lower neck). Eyes: Positive for visual disturbance. Respiratory: Negative for difficulty breathing. Cardiovascular: Negative for chest pain, leg swelling and claudication. Gastrointestinal: Negative for heartburn, nausea, vomiting, abdominal pain, diarrhea and constipation. Genitourinary: Positive for amenorrhea. Negative for urgency, frequent urination, slower stream, menstruating and irregular menses. Musculoskeletal: Positive for myalgias, muscle weakness and bone pain. Skin: Negative for skin color change. Neurological: Positive for dizziness and headaches. Negative for numbness. Endo/Heme/Allergies: Positive for polydipsia, cold intolerance when others are comfortable, heat intolerance when others are comfortable, hot flashes and changes in body hair. Negative for flushing. PAST MEDICAL HISTORY Diagnosis Date Insomnia Kidney stone PAST SURGICAL HISTORY Procedure Laterality Date BUNIONECTOMY, LAPIDUS-TYPE rt foot BX OF BREAST; INCISIONAL RT BREAST 2X PAST SURGICAL HISTORY OF Nephrostomy tube removed PAST SURGICAL HISTORY OF hysterectomy still have ovaries PAST SURGICAL HISTORY OF cyst on ovaries removed several time PAST SURGICAL HISTORY OF kidney stones PAST SURGICAL HISTORY OF exploratory surgery for endometriosis PAST SURGICAL HISTORY OF LEEP procedure PAST SURGICAL HISTORY OF colonoscopy x 2 SALPINGECTOMY Bilateral 2010 Social History Tobacco Use Smoking status: Never Smokeless tobacco: Never Substance Use Topics Alcohol use: Yes Comment: about 1-2 times per month will have ~2 drinks Drug use: Never FAMILY HISTORY Problem Relation Age of Onset Lung Cancer Father Heart Attack Father Osteoporosis Maternal Grandmother Cancer Maternal Grandmother IN NECK Breast Cancer Paternal Grandmother Breast Cancer Paternal Aunt unsure of age at diagnosis Breast Cancer Paternal Aunt diagnosed in her 40s Breast Cancer Paternal Aunt unsure of age at diagnosis Current Outpatient Medications Medication Sig ondansetron (ZOFRAN) 4 mg tablet Take 1 tablet by mouth every 8 hours as needed for nausea/vomiting. acetaminophen (TYLENOL) 325 mg tablet Take 2 tablets by mouth every 6 hours as needed (for pain.). ibuprofen (MOTRIN) 600 mg tablet Take 1 tablet by mouth every 8 hours as needed for pain. gabapentin (NEURONTIN) 100 mg capsule Take 1 capsule by mouth daily at bedtime for 5 days. tizanidine HCl (ZANAFLEX ORAL) Zanaflex Phentermine HCl 37.5 mg tablet once daily. ALPRAZolam (XANAX) 1 mg tablet Take 1 mg by mouth twice daily as needed. No current facility-administered medications for this visit. ALLERGIES Allergen Reactions Ciprofloxacin Unknown Dicyclomine Unknown Ketorolac Unknown Lorazepam Unknown Methylprednisolone Other: See Comments Rash, blistering Nitrofurantoin Unknown Penicillins Unknown Prednisone Intolerance Reglan [Metoclopram* Unknown Zithromax [Azithrom* Unknown PHYSICAL EXAM: BP 124/81 (BP Site: Left Arm, BP Position: Sitting, BP Cuff Size: Large Adult) Pulse 83 Ht 165.1 cm (5' 5 ) Wt 105.7 kg (233 lb 0.4 oz) SpO2 100% BMI 38.78 kg/m Body mass index is 38.78 kg/m . Appearance: Well appearing, in no acute distress. Obese, not cushingoid HEENT: Anicteric sclerae. Non-injected conjunctivae. Neck: No visible goiter. No thyromegaly. No lymphadenopathy Heart: RRR. No detectable murmur, gallop, or rub. Lungs: Clear to auscultation. No wheezing, rhonchi or rales. Abdomen: Soft. No tenderness to palpation. Extremities: No deformities. No edema. Neuro: Alert, speaking coherently. No involuntary motions. Normal hip strength. Skin: Normal temperature. No rash. LABS RESULTS: Recent Data from [facility] Related to Prolactin Component 06/18/23 06/24/19 PROLACTIN 5.4 6.6 ASSESSMENT & PLAN: Sully Enriquez is a 33 year old female here for evaluation of nipple discharge. (N64.52) Discharge from right nipple (primary encounter diagnosis) Comment: Unilateral. Normal prolactin. Not hormonally-mediated discharge. Plan: ENDOCRINE CONSULTATION (E66.922) Obesity, Class II, BMI 35-39.9 Comment: Since age 26. Unclear cause. I discuss with Pt about some elements related to nutrition. Will do some tests to r/o some endocrine causes. I offered Pt to establish care in [facility]. She mentioned she would reestablish care in clinic she used to go in [place]. Plan: INSULIN LIK GR FAC I, THYROID STIMULATING HORMONE, URINE FREE CORTISOL BY LC-MS/MS I spent a total of 59 minutes on the date of the service which included preparing to see the patient, [id number] patient care, completing clinical documentation, obtaining and/or reviewing separately obtained history, performing a medically appropriate examination, counseling and educating the patient/family/caregiver, and ordering medications, tests, or procedures. Return to office: TBD MD luis Campbell. Franchesca Man PA-C. documented in this encounter [facility] 02-17-2024 Note HNO ID: [id number] Author: DEVAUGHN ANDERSON MD Service: ? Author Type: Physician Type: Progress Notes Filed: 02/17/2024 14:29 Note Text: ENDOCRINOLOGY REASON FOR CONSULTATION: Nipple discharge The patient is referred by Franchesca Man PA-C. My recommendations will be sent to the referring physician/provider either by letter or shared electronic medical record. HISTORY HPI: Sully Enriquez is a 33 year old female who comes in here for evaluation of nipple discharge. Pt report right discharge since around 10/2023. Pt thinks this is coming from one pore. She had an excision of a mass in R breast on 01/08/24. The diagnosis was: Fibroadenoma. - Adjacent breast tissue with cystic change, apocrine metaplasia, usual ductal hyperplasia, and columnar cell change. - Core biopsy site changes and clip x 2. Pt has noticed some bloody right nipple discharge after the surgery. Pt had and had unsuccessful breast feeding attempt in 2010. #Weight gain: Since age 26. Pt states she put about 100 lbs in one year, mw/o changes in activity, nutrition nor a . Fluctuating within +/- 10 lbs. No family h/o overweight or obesity. No changes in muscle strength. Pt was running about 2 mi daily until age 26. Pt walks about 0.5-1 mi per day. Does some resistance exercise times per week. Has tried a diet with 1 cup of oat meal 6 oz of meat for lunch and dinner. No pop or sugary things. Drinks water and lemonade. Pt eats asparagus or sweat potatoes. Review of Systems Constitutional: Positive for fatigue and night sweats. Negative for recent unintentional weight change. HENT: Negative for trouble swallowing, postnasal drip and thyroid pain (lower neck). Eyes: Positive for visual disturbance. Respiratory: Negative for difficulty breathing. Cardiovascular: Negative for chest pain, leg swelling and claudication. Gastrointestinal: Negative for heartburn, nausea, vomiting, abdominal pain, diarrhea and constipation. Genitourinary: Positive for amenorrhea. Negative for urgency, frequent urination, slower stream, menstruating and irregular menses. Musculoskeletal: Positive for myalgias, muscle weakness and bone pain. Skin: Negative for skin color change. Neurological: Positive for dizziness and headaches. Negative for numbness. Endo/Heme/Allergies: Positive for polydipsia, cold intolerance when others are comfortable, heat intolerance when others are comfortable, hot flashes and changes in body hair. Negative for flushing. PAST MEDICAL HISTORY Diagnosis Date Insomnia Kidney stone PAST SURGICAL HISTORY Procedure Laterality Date BUNIONECTOMY, LAPIDUS-TYPE rt foot BX OF BREAST; INCISIONAL RT BREAST 2X PAST SURGICAL HISTORY OF Nephrostomy tube removed PAST SURGICAL HISTORY OF hysterectomy still have ovaries PAST SURGICAL HISTORY OF cyst on ovaries removed several time PAST SURGICAL HISTORY OF kidney stones PAST SURGICAL HISTORY OF exploratory surgery for endometriosis PAST SURGICAL HISTORY OF LEEP procedure PAST SURGICAL HISTORY OF colonoscopy x 2 SALPINGECTOMY Bilateral 2010 Social History Tobacco Use Smoking status: Never Smokeless tobacco: Never Substance Use Topics Alcohol use: Yes Comment: about 1-2 times per month will have ~2 drinks Drug use: Never FAMILY HISTORY Problem Relation Age of Onset Lung Cancer Father Heart Attack Father Osteoporosis Maternal Grandmother Cancer Maternal Grandmother IN NECK Breast Cancer Paternal Grandmother Breast Cancer Paternal Aunt unsure of age at diagnosis Breast Cancer Paternal Aunt diagnosed in her 40s Breast Cancer Paternal Aunt unsure of age at diagnosis Current Outpatient Medications Medication Sig ondansetron (ZOFRAN) 4 mg tablet Take 1 tablet by mouth every 8 hours as needed for nausea/vomiting. acetaminophen (TYLENOL) 325 mg tablet Take 2 tablets by mouth every 6 hours as needed (for pain.). ibuprofen (MOTRIN) 600 mg tablet Take 1 tablet by mouth every 8 hours as needed for pain. gabapentin (NEURONTIN) 100 mg capsule Take 1 capsule by mouth daily at bedtime for 5 days. tizanidine HCl (ZANAFLEX ORAL) Zanaflex Phentermine HCl 37.5 mg tablet once daily. ALPRAZolam (XANAX) 1 mg tablet Take 1 mg by mouth twice daily as needed. No current facility-administered medications for this visit. ALLERGIES Allergen Reactions Ciprofloxacin Unknown Dicyclomine Unknown Ketorolac Unknown Lorazepam Unknown Methylprednisolone Other: See Comments Rash, blistering Nitrofurantoin Unknown Penicillins Unknown Prednisone Intolerance Reglan [Metoclopram* Unknown Zithromax [Azithrom* Unknown PHYSICAL EXAM: BP 124/81 (BP Site: Left Arm, BP Position: Sitting, BP Cuff Size: Large Adult) Pulse 83 Ht 165.1 cm (5' 5 ) Wt 105.7 kg (233 lb 0.4 oz) SpO2 100% BMI 38.78 kg/m? Body mass index is 38.78 kg/m?. Appearance: Well appearing, in no acute distr (more content not included)... [facility] 01-30-2024 History of Present illness Narrative Radiology Service Progress Note PATIENT NAME: Sully Enriquez DATE OF SERVICE: January 30, 2024 TIME: 10:28 AM PATIENT IDENTITY VERIFICATION COMPLETED USING TWO (2) IDENTIFIERS: Name and Date of confirmed by patient verbally. FALL SCREENING: Has the patient had 2 falls in the last year or 1 fall with injury or currently using an Ambulatory Assistive Device (Walker, Cane, Wheelchair, Crutches, etc.)? No PATIENT GENDER DATA: Female. status: : No status: NO. PATIENT RELEVANT IMPLANT DATA REVIEWED: Not Applicable PATIENT PRESENTS WITH AN IMPLANTABLE OR ATTACHED VARIETY PERFORMER: No RADIOLOGY DEPARTMENT: Mammography PERIPHERAL IV DATA: Not applicable SIGNED BY: RT Latia(Jd) January 30, 2024 10:28 AM documented in this encounter [facility] 01-30-2024 Note HNO ID: [id number] Author: LORI MCNEILL RT(R) Service: Radiology Author Type: Technologist Type: Progress Notes Filed: 01/30/2024 10:28 Note Text: Radiology Service Progress Note PATIENT NAME: Sully Enriquez DATE OF SERVICE: January 30, 2024 TIME: 10:28 AM PATIENT IDENTITY VERIFICATION COMPLETED USING TWO (2) IDENTIFIERS: Name and Date of confirmed by patient verbally. FALL SCREENING: Has the patient had 2 falls in the last year or 1 fall with injury or currently using an Ambulatory Assistive Device (Walker, Cane, Wheelchair, Crutches, etc.)? No PATIENT GENDER DATA: Female. status: : No status: NO. PATIENT RELEVANT IMPLANT DATA REVIEWED: Not Applicable PATIENT PRESENTS WITH AN IMPLANTABLE OR ATTACHED VARIETY PERFORMER: No RADIOLOGY DEPARTMENT: Mammography PERIPHERAL IV DATA: Not applicable SIGNED BY: RT Latia(R) January 30, 2024 10:28 AM [facility] 01-30-2024 History of Present illness Narrative Images from the original note were not included. BREAST FOLLOW UP HISTORY of PRESENT ILLNESS: Sully Enriquez, 33 year old female ith a history of right breast fibroadenoma presents today status post right breast excisional biopsy on 01/08/2024. Final path showed fibroadenoma and benign breast tissue. Ms. Enriquez was seen for post op follow up on 01/19/2024. At that time, she was doing well from surgery and had no additional breast concerns. Patient reports about 4-5 days ago she experienced bloody discharge from the right nipple while manipulating her breast. She noted a second occurrence of bloody nipple discharge which was spontaneous the next day. She has not noticed any subsequent episodes of nipple discharge although she feels the right nipple was slightly inverting last night. She reports a distant history of clear nipple discharge several months ago. Ms. Enriquez also noticed two new non-tender lumps in the right breast about 1 week ago- one quarter-sized in the superior breast and the other pea-sized lump in the inferior breast which are not near her surgical site. Patient has limited contact with paternal side of family, however, in the past couple weeks she has learned that 3 paternal aunts have had breast cancer. She does not know ages of diagnoses, but was told one aunt was diagnosed in her 40s. Her father has 11 siblings total, although she is unsure of the # of sisters. PERSONAL BREAST HISTORY: Past breast history (prior to this encounter) is as follows: Breast biopsy: 07/07/23 right breast 8oclock 4-5cmfn, fibrocystic change, concordant Breast cysts: No Breast surgery: 01/08/24 right breast excisional biopsy- fibroadenoma Breast cancer: No CANCER SURVEILLANCE: Mammograms: 06/25/23 [...] No She is s/p hysterectomy for endometriosis. Ovaries remain intact. She does not use any control. History of Mantle Radiation prior to the age of 29: No Obesity: Yes, 38.11 kg/m Current Weight: 229 lb Mammographic density: The breasts are heterogeneously dense which limits the sensitivity of mammography Personal History of Benign Atypical Breast Biopsy: No Alcohol use: occasional PAST MEDICAL HISTORY: PAST MEDICAL HISTORY Diagnosis Date Insomnia Kidney stone PAST SURGICAL HISTORY: PAST SURGICAL HISTORY Procedure Laterality Date BUNIONECTOMY, LAPIDUS-TYPE rt foot BX OF BREAST; INCISIONAL RT BREAST 2X PAST SURGICAL HISTORY OF Nephrostomy tube removed PAST SURGICAL HISTORY OF hysterectomy still have ovaries PAST SURGICAL HISTORY OF cyst on ovaries removed several time PAST SURGICAL HISTORY OF kidney stones PAST SURGICAL HISTORY OF exploratory surgery for endometriosis PAST SURGICAL HISTORY OF LEEP procedure PAST SURGICAL HISTORY OF colonoscopy x 2 SALPINGECTOMY Bilateral 2010 SOCIAL HISTORY: Social History Tobacco Use Smoking status: Never Smokeless tobacco: Never Substance Use Topics Alcohol use: Yes Comment: about 1-2 times per month will have ~2 drinks Drug use: Never Caffeine intake: 1 soda / day Exercise: 1-2 times weekly FAMILY HISTORY: Family history of breast cancer: paternal grandmother, unsure of age, no genetic testing, three paternal aunts (one diagnosed in her 40s), limited contact with paternal side of family Family history of ovarian cancer: None Number of sisters: 2 Number of maternal aunts: 2 Number of paternal aunts: 6 (per prior documentation), patient reports 11 siblings total and unsure of # of females Ashkenazi Ancestry: no Has Patient had Genetic Testing? No Other Cancer: father with lung cancer, living There is no family history of prostate, colon, uterine, pancreatic, gastric, brain, renal cell or thyroid cancer. There is no family history of melanoma, sarcoma or leukemia. Osteoporosis: None Stroke: None Blood Clot: None Heart attack: None Thyroid Nodule or Goiter: None Autism: None FAMILY HISTORY Problem Relation Age of Onset Lung Cancer Father Heart Attack Father Osteoporosis Maternal Grandmother Cancer Maternal Grandmother IN NECK Breast Cancer Paternal Grandmother Breast Cancer Paternal Aunt unsure of age at diagnosis Breast Cancer Paternal Aunt diagnosed in her 40s Breast Cancer Paternal Aunt unsure of age at diagnosis MEDICATIONS: ondansetron (ZOFRAN) 4 mg tablet Take 1 tablet by mouth every 8 hours as needed for nausea/vomiting. acetaminophen (TYLENOL) 325 mg tablet Take 2 tablets by mouth every 6 hours as needed (for pain.). ibuprofen (MOTRIN) 600 mg tablet Take 1 tablet by mouth every 8 hours as needed for pain. tizanidine HCl (ZANAFLEX ORAL) Zanaflex Phentermine HCl 37.5 mg tablet once daily. ALPRAZolam (XANAX) 1 mg tablet Take 1 mg by mouth twice daily as needed. gabapentin (NEURONTIN) 100 mg capsule Take 1 capsule by mouth daily at bedtime for 5 days. ALLERGIES: ALLERGIES Allergen Reactions Ciprofloxacin Unknown Dicyclomine Unknown Ketorolac Unknown Lorazepam Unknown Methylprednisolone Other: See Comments Rash, blistering Nitrofurantoin Unknown Penicillins Unknown Prednisone Intolerance Reglan [Metoclopram* Unknown Zithromax [Azithrom* Unknown REVIEW OF SYSTEMS: GENERAL: No weight loss, malaise or fevers NECK: Negative for lumps, goiter, pain and significant neck swelling RESPIRATORY: Negative for cough, hemoptysis, wheezing, COPD, dyspnea or shortness of breath CARDIOVASCULAR: Negative for chest pain, leg swelling, hypertension, CHF or palpitations GI: No nausea, vomiting, or diarrhea : No history of dysuria, frequency or incontinence CERTIFIED MEDICAL CODER: Negative for abnormal vaginal bleeding, abnormal vaginal discharge MUSCULOSKELETAL: Negative for joint pain or swelling, back pain or muscle pain SKIN: Negative for lesions, rash, and itching HEMATOLOGY/LYMPHOLOGY: Negative for prolonged bleeding, bruising easily or swollen nodes ENDOCRINE: Negative for cold or heat intolerance, polyuria, polydipsia and goiter PHYSICAL EXAM: Physical Exam Constitutional: General: She is not in acute distress. Appearance: Normal appearance. She is not ill-appearing. Pulmonary: Effort: Pulmonary effort is normal. Chest: Breasts: Right: No inverted nipple, nipple discharge or tenderness. Left: No inverted nipple, nipple discharge or tenderness. Comments: Nipple piercings present bilaterally. Black dots on image represent areas of nodularity/increased fibrocystic change in the area of patient's palpable concern at 12:00 4 cmFN, 6:00 4 cmFN, and 10:00 6 cmFN. No nipple discharge able to be elicited on exam. Well healing surgical incision in LOQ. Lymphadenopathy: Upper Body: Right upper body: No axillary adenopathy. Left upper body: No axillary adenopathy. The sensitive examination was discussed with the Patient or Patient's Authorized Manager Air. As applicable, any other physician, advance practice provider, medical student, or other health professional student that will be observing or involved in the sensitive examination for educational or training purposes was discussed with the Patient or Authorized Manager Air. The Patient or Authorized Manager Air has agreed to proceed with the sensitive examination. (Sensitive examination includes inspection and/or palpation of the breasts, pelvis, prostate and anorectal regions) IMAGING: Right ultrasound was performed today in the breast center and were negative for malignancy. Normal fibroglandular tissue was visualized without discrete solid or cystic masses. TC Risk Assessment: Assessment IMPRESSION/PLAN: Sully Enriquez is a 33 year old year old female s/p right breast excisional biopsy on 01/08/2024 with new onset right bloody nipple discharge and concerns for palpable findings. There is no evidence of malignancy. The patient was reassured as to the benign nature of her clinical and sonographic findings. Given proximity to her recent right breast surgery. We discussed the possibility that the two episodes of right bloody nipple discharge could be related to surgery. We will plan to have her follow up in 2 months and if nipple discharge persists, will order diagnostic imaging with consideration for MRI. Given new information of 3 paternal aunts with breast cancer diagnoses, her data were entered into the [employer] model for Risk Assessment. Her 10 year projected risk of developing invasive breast cancer is 2% and her lifetime risk of breast cancer is estimated to be 16.8%. She does not meet criteria for screening breast MRI. Genetics referral made: Yes: Reason: multiple paternal family members with breast cancer. Chemoprevention discussion: N/A The patient is advised to exercise regularly, achieve/maintain ideal body weight, and to limit alcohol consumption to less than 7 drinks weekly for breast cancer risk reduction and overall health. The patient has an active breast problem and will be seen in follow up in the breast center. She will return in 2 months for follow-up evaluation. She will call me in the interim should she have any questions or concerns. My final recommendations will be communicated back to the requesting physician by way of shared medical record or letter via [place] mail. I spent a total of 45 minutes minutes on the date of the service which included preparing to see the patient, [id number] patient care, completing clinical documentation, performing a medically appropriate examination, counseling and educating the patient/family/caregiver, ordering medications, tests, or procedures, independently interpreting results (not separately reported), and communicating results to the patient/family/caregiver. Anastasia Mon PA-C documented in this encounter [facility] 01-30-2024 Note HNO ID: [id number] Author: ANASTASIA MON PA-C Service: ? Author Type: Physician Ditto Machine Operator Type: Progress Notes Filed: 01/30/2024 13:52 Note Text: BREAST FOLLOW UP HISTORY of PRESENT ILLNESS: Sully Enriquez, 33 year old female ith a history of right breast fibroadenoma presents today status post right breast excisional biopsy on 01/08/2024. Final path showed fibroadenoma and benign breast tissue. Ms. Enriquez was seen for post op follow up on 01/19/2024. At that time, she was doing well from surgery and had no additional breast concerns. Patient reports about 4-5 days ago she experienced bloody discharge from the right nipple while manipulating her breast. She noted a second occurrence of bloody nipple discharge which was spontaneous the next day. She has not noticed any subsequent episodes of nipple discharge although she feels the right nipple was slightly inverting last night. She reports a distant history of clear nipple discharge several months ago. Ms. Enriquez also noticed two new non-tender lumps in the right breast about 1 week ago- one quarter-sized in the superior breast and the other pea-sized lump in the inferior breast which are not near her surgical site. Patient has limited contact with paternal side of family, however, in the past couple weeks she has learned that 3 paternal aunts have had breast cancer. She does not know ages of diagnoses, but was told one aunt was diagnosed in her 40s. Her father has 11 siblings total, although she is unsure of the # of sisters. PERSONAL BREAST HISTORY: Past breast history (prior to this encounter) is as follows: Breast biopsy: 07/07/23 right breast 8oclock 4-5cmfn, fibrocystic change, concordant Breast cysts: No Breast surgery: 01/08/24 right breast excisional biopsy- fibroadenoma Breast cancer: No CANCER SURVEILLANCE: Mammograms: 06/25/23 [...] No She is s/p hysterectomy for endometriosis. Ovaries remain intact. She does not use any control. History of Mantle Radiation prior to the age of 29: No Obesity: Yes, 38.11 kg/m Current Weight: 229 lb Mammographic density: The breasts are heterogeneously dense which limits the sensitivity of mammography Personal History of Benign Atypical Breast Biopsy: No Alcohol use: occasional PAST MEDICAL HISTORY: PAST MEDICAL HISTORY Diagnosis Date Insomnia Kidney stone PAST SURGICAL HISTORY: PAST SURGICAL HISTORY Procedure Laterality Date BUNIONECTOMY, LAPIDUS-TYPE rt foot BX OF BREAST; INCISIONAL RT BREAST 2X PAST SURGICAL HISTORY OF Nephrostomy tube removed PAST SURGICAL HISTORY OF hysterectomy still have ovaries PAST SURGICAL HISTORY OF cyst on ovaries removed several time PAST SURGICAL HISTORY OF kidney stones PAST SURGICAL HISTORY OF exploratory surgery for endometriosis PAST SURGICAL HISTORY OF LEEP procedure PAST SURGICAL HISTORY OF colonoscopy x 2 SALPINGECTOMY Bilateral 2010 SOCIAL HISTORY: Social History Tobacco Use Smoking status: Never Smokeless tobacco: Never Substance Use Topics Alcohol use: Yes Comment: about 1-2 times per month will have ~2 drinks Drug use: Never Caffeine intake: 1 soda / day Exercise: 1-2 times weekly FAMILY HISTORY: Family history of breast cancer: paternal grandmother, unsure of age, no genetic testing, three paternal aunts (one diagnosed in her 40s), limited contact with paternal side of family Family history of ovarian cancer: None Number of sisters: 2 Number of maternal aunts: 2 Number of paternal aunts: 6 (per prior documentation), patient reports 11 siblings total and unsure of # of females Ashkenazi Ancestry: no Has Patient had Genetic Testing? No Other Cancer: father with lung cancer, living There is no family history of prostate, colon, uterine, pancreatic, gastric, brain, renal cell or thyroid cancer. There is no family history of melanoma, sarcoma or leukemia. Osteoporosis: None Stroke: None Blood Clot: None Heart attack: None Thyroid Nodule or Goiter: None Autism: None FAMILY HISTORY Problem Relation Age of Onset Lung Cancer Father Heart Attack Father Osteoporosis Maternal Grandmother Cancer Maternal Grandmother IN NECK Breast Cancer Paternal Grandmother Breast Cancer Paternal Aunt unsure of age at diagnosis Breast Cancer Paternal Aunt diagnosed in her 40s Breast Cancer Paternal Aunt unsure of age at diagnosis MEDICATIONS: ondansetron (ZOFRAN) 4 mg tablet Take 1 tablet by mouth every 8 hours as needed for sanket (more content not included)... [facility] 01-19-2024 History of Present illness Narrative Images from the original note were not included. BREAST SURGERY POST OPERATIVE FOLLOW-UP #1 SERVICE DATE: 01/19/2024 SUBJECTIVE: Sully Enriquez 33 year old female with a history of right breast fibroadenoma presents today status post right breast excisional biopsy on 01/08/2024. Final path showed fibroadenoma and benign breast tissue. She denies any signs of infection such as erythema at surgical site, fever, or chills. She was initially having high pain levels at surgical site post op, but reports now this is a 3/10 discomfort and is only taking Tylenol occasionally at this time. Pain is worse after using right arm more than usual. She also reports itchiness beneath her incision. Of note, she just found out her paternal aunt had breast cancer previously and is unsure of age at diagnosis. She states the aunt has since passed from an unrelated cause and is unable to find out any additional information. SURGICAL PATHOLOGY: FINAL DIAGNOSIS Right breast mass, ZAYDA-localized excision: - Fibroadenoma. - Adjacent breast tissue with cystic change, apocrine metaplasia, usual ductal hyperplasia, and columnar cell change. - Core biopsy site changes and clip x 2. EW OF SYSTEMS: Review Of Systems See HPI OBJECTIVE: PHYSICAL EXAM: Ht 165.1 cm (5' 5 ) Wt 103.9 kg (229 lb) BMI 38.11 kg/m Body mass index is 38.11 kg/m . Physical Exam Constitutional: General: She is not in acute distress. Appearance: Normal appearance. She is not ill-appearing. HENT: Head: Normocephalic and atraumatic. Chest: Comments: Steri strips and skin glue overlying LOQ surgical incision without surrounding erythema or drainage. Tissue soft beneath. Assessment ASSESSMENT: (D24.1) Breast fibroadenoma, right (primary encounter diagnosis) (N60.11, N60.12) Fibrocystic breast changes of both breasts (Z98.890) Post-operative state Sully Enriquez 33 year old female with a history of right breast fibroadenoma presents today status post right breast excisional biopsy on 01/08/2024. Final path showed fibroadenoma and benign breast tissue. She is recovering well post operatively. PLAN: Reviewed benign pathology report and provided copy to patient. Remove remaining steri strips after 2 weeks post op or as they peel off on their own Avoid heavy lifting >10 lbs with right arm for 2 weeks, avoid submerging in water for 4 weeks Follow up with surgical team PRN Follow up with medical breast team in 6 months or PRN All questions were answered; patient has no further concerns. Anastasia Mon PA-C documented in this encounter [facility] 01-19-2024 Note HNO ID: [id number] Author: ANASTASIA MON PA-C Service: ? Author Type: Physician Ditto Machine Operator Type: Progress Notes Filed: 01/19/2024 15:40 Note Text: BREAST SURGERY POST OPERATIVE FOLLOW-UP #1 SERVICE DATE: 01/19/2024 SUBJECTIVE: Sully Enriquez 33 year old female with a history of right breast fibroadenoma presents today status post right breast excisional biopsy on 01/08/2024. Final path showed fibroadenoma and benign breast tissue. She denies any signs of infection such as erythema at surgical site, fever, or chills. She was initially having high pain levels at surgical site post op, but reports now this is a 3/10 discomfort and is only taking Tylenol occasionally at this time. Pain is worse after using right arm more than usual. She also reports itchiness beneath her incision. Of note, she just found out her paternal aunt had breast cancer previously and is unsure of age at diagnosis. She states the aunt has since passed from an unrelated cause and is unable to find out any additional information. SURGICAL PATHOLOGY: FINAL DIAGNOSIS Right breast mass, ZAYDA-localized excision: - Fibroadenoma. - Adjacent breast tissue with cystic change, apocrine metaplasia, usual ductal hyperplasia, and columnar cell change. - Core biopsy site changes and clip x 2. EW OF SYSTEMS: Review Of Systems See HPI OBJECTIVE: PHYSICAL EXAM: Ht 165.1 cm (5' 5 ) Wt 103.9 kg (229 lb) BMI 38.11 kg/m? Body mass index is 38.11 kg/m?. Physical Exam Constitutional: General: She is not in acute distress. Appearance: Normal appearance. She is not ill-appearing. HENT: Head: Normocephalic and atraumatic. Chest: Comments: Steri strips and skin glue overlying LOQ surgical incision without surrounding erythema or drainage. Tissue soft beneath. Assessment ASSESSMENT: (D24.1) Breast fibroadenoma, right (primary encounter diagnosis) (N60.11, N60.12) Fibrocystic breast changes of both breasts (Z98.890) Post-operative state Sully Enriquez 33 year old female with a history of right breast fibroadenoma presents today status post right breast excisional biopsy on 01/08/2024. Final path showed fibroadenoma and benign breast tissue. She is recovering well post operatively. PLAN: Reviewed benign pathology report and provided copy to patient. Remove remaining steri strips after 2 weeks post op or as they peel off on their own Avoid heavy lifting >10 lbs with right arm for 2 weeks, avoid submerging in water for 4 weeks Follow up with surgical team PRN Follow up with medical breast team in 6 months or PRN All questions were answered; patient has no further concerns. Anastasia Mon PA-C [facility] 01-09-2024 Telephone encounter Note Returned call and spoke to pt. Pt stated she is alternating tylenol and ibuprofen and also took Neurontin last night. Pt stated, nothing helped. Pt also stated that she feels nauseous and thinks its from the pain. Spoke withDr. Sutton while in clinic, she will order additional medication for pt. [facility] 01-09-2024 Miscellaneous Notes Returned call and spoke to pt. Pt stated she is alternating tylenol and ibuprofen and also took Neurontin last night. Pt stated, nothing helped. Pt also stated that she feels nauseous and thinks its from the pain. Spoke withDr. Sutton while in clinic, she will order additional medication for pt. Patient called stating that since last night she is experiencing right side pain and arm movement makes it worse (level 8), warm to touch, nausea. Patient can be reached at [phone]. Thanks documented in this encounter [facility] 01-09-2024 Telephone encounter Note Patient called stating that since last night she is experiencing right side pain and arm movement makes it worse (level 8), warm to touch, nausea. Patient can be reached at [phone]. Thanks [facility] 01-08-2024 Note HNO ID: [id number] Author: KRANTHI HARRIS AA Service: ? Author Type: Oncology Rep Type: Anesthesia Procedure Notes Filed: 01/08/2024 09:21 Note Text: ANESTHESIOLOGY PROCEDURE NOTE PIV General Information Procedure Start Time/Medication Administration: 01/08/2024 9:15 AM Procedure End Time: 01/08/2024 9:16 AM Patient Location: OR Staffing CAA: Kranthi Harris AA Performed by: DAMASO Preparation Sterility Preparation: hand hygiene performed prior to procedure, mask used Site Prep: alcohol Procedure Details Indication: need for IV access Needle Size/Type: 24 gauge angiocath Orientation: Right Location: Hand Imaging Guidance Used: No SIGNATURE: GWEN Bey PATIENT NAME: Sully Enriquez DATE: January 08, 2024 TIME: 9:19 AM CSN: [id number] [facility] 01-08-2024 Note HNO ID: [id number] Author: KRANTHI HARRIS AA Service: ? Author Type: Oncology Rep Type: Anesthesia Procedure Notes Filed: 01/08/2024 07:50 Note Text: ANESTHESIOLOGY PROCEDURE NOTE Airway General Information Procedure Start Time/Medication Administration: 01/08/2024 7:45 AM Procedure End Time: 01/08/2024 7:46 AM Patient location during procedure: OR Timeout Performed Pre-procedure: timeout performed Consent Obtained: Yes Patient identity confirmed: arm band, care produce service team member and patient Staffing CAA: Kranthi Harris AA Performed by: DAMASO Indications and Patient Condition Indications for airway management: anesthesia Preoxygenated: yes anesthesia circuit Patient position: sniffing Method: asleep Difficult Mask: No Final Airway Details Final airway type: supraglottic airway Number of attempts at approach: 1 Final Supraglottic Airway: i-gel Size 4 Seal Adequate: yes Failed airway: no Airway not difficult SIGNATURE: GWEN Bey PATIENT NAME: Sully Enriquez DATE: January 08, 2024 TIME: 7:49 AM CSN: [id number] [facility] 01-07-2024 Instructions Formatting of th is note might [...] LEARNING: None LEARNING RESPONSE Radiology Procedures Ultrasound Guided Needle Localization METHOD OF INSTRUCTION: Individual instruction Written instruction - handouts Verbal instruction PATIENT / FAMILY RESPONSE: Performs skill independently: Wound care FOLLOW-UP PLAN: Complete - No need for follow-up SUPPLEMENTAL MATERIAL: Homegoing instructions REFERRAL (RECOMMENDATION): None [facility] 01-07-2024 Miscellaneous Notes AMBULATORY PATIENT EDUCATION RADIOLOGY TOPIC: [...] LEARNING: None LEARNING RESPONSE Radiology Procedures Ultrasound Guided Needle Localization METHOD OF INSTRUCTION: Individual instruction Written instruction - handouts Verbal instruction PATIENT / FAMILY RESPONSE: Performs skill independently: Wound care FOLLOW-UP PLAN: Complete - No need for follow-up SUPPLEMENTAL MATERIAL: Homegoing instructions REFERRAL (RECOMMENDATION): None documented in this encounter [facility] 01-06-2024 Telephone encounter Note Hi Dr. Sutton, I saw this patient today for a virtual P[facility] visit - scheduled for surgery with you on 01/07. Patient reports she has a rash of left breast that had a blister - the blister resolved but rash is still present, she reports it may have been caused by methylprednisolone she was put on for back pain - not currently on this med now. Rash is not itchy or painful, feels there is a lump on the inside of the breast in this area She said she has let you know at your office visit 12/26/2023. I am not positive if you were aware but I wanted to let you know in case this could be an issue. Thank you, Camila Russo PA-C January 06, 2024 2:13 PM [facility] 01-06-[address] Sutton, I saw this patient today for a virtual PACC visit - scheduled for surgery with you on 01/07. Patient reports she has a rash of left breast that had a blister - the blister resolved but rash is still present, she reports it may have been caused by methylprednisolone she was put on for back pain - not currently on this med now. Rash is not itchy or painful, feels there is a lump on the inside of the breast in this area She said she has let you know at your office visit 12/26/2023. I am not positive if you were aware but I wanted to let you know in case this could be an issue. Thank you, Camila Russo PA-C January 06, 2024 2:13 PM documented in this encounter [facility] 01-06-2024 Instructions Camila Russo PA-C - 01/06/2024 2:07 PM EDT PATIENT PREOPERATIVE INSTRUCTIONS Adele Sutton, * has scheduled you for your procedure at this surgery center: [facility]: [phone] --[id number] [place] [address] Location is near [facility] Arrival Time for Surgery: - The Surgery Center or hospital where you are having surgery will call the afternoon before surgery (or Friday for Friday surgery) with a scheduled arrival time. - If you have not heard by 4 pm, please contact the surgery center above. Please be aware that emergency situations arise, which may delay or change your surgical time. If this happens, we will notify you as soon as possible and regret any inconvenience. Please read below carefully for your personalized instructions. Dietary Restrictions: - No solid food after midnight. - You may have 12 ounces of clear liquids (water, clear juices such as apple juice or gatorade, carbonated beverages, clear tea, black coffee, jello) until 2 hours before scheduled arrival at facility. Medications: Unless instructed differently below, stay on all of your medications until your surgery. If you start any new medications after today's visit, please contact your surgeon. Please take the following medications the morning of surgery with a sip of water: xanax if needed Continue holding phentermine Blood Thinning Medications: - Stop NSAIDS (Ibuprofen, Advil, Aleve, Motrin, Celebrex, Mobic (Meloxicam), Naproxen (Naprosyn), etc.) 7 days before surgery, as directed by your surgeon. - Stop Aspirin 7 days before surgery, as directed by your surgeon. - Stop Vitamin E, ALL multi-vitamins, herbals and dietary supplements 14 days before surgery. - You may take Tylenol (Acetaminophen) or any of your pain medications that do not contain aspirin or NSAIDS as needed. Important Reminders: - Candy, mints, and tobacco products are NOT permitted the morning of surgery. - Hearing aids, dentures and glasses may be worn the morning of surgery. - NO jewelry, body piercings, makeup, hairpins or contacts are to be worn the day of surgery. If you develop symptoms such as a fever, cold, or flu, or have other changes to your health within TWO DAYS of scheduled surgery or the morning of surgery, please contact the surgery center above. Personal Belongings: -Please have photo ID and insurance cards. -If you do not have a copy of advance directives on file with us, please bring a copy with you on the day of surgery. - Leave ALL valuables and money at home or with family members. For Outpatient Procedures: - YOU MUST HAVE A RESPONSIBLE BRIDGE RIGGER TAKE YOU HOME. A [employer] THREAD WINDER OR ETHOLOGIST CANNOT BE MADE A RESPONSIBLE BRIDGE RIGGER. - We recommend that a responsible person stays with you overnight to take care of you. - You cannot stay in a hotel alone after outpatient surgery. You will not be permitted to have your surgery, if you do not have someone to take care of you. If you already have an Advance Directive, please fax a copy to [phone] or email to for it to be added to your chart. If you do not have an Advance Directive, you can find the appropriate form and more information at [email or web address]. We recommend that you complete the Advance Directive form found on the website and bring it with you the day of your surgery. It can be witnessed and scanned into your chart that day. Camila Russo PA-C documented in this encounter [facility] 01-06-2024 History and physical note Images from the original note were not included. 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 No epilepsy per patient No treatment needed per patient Takes xanax PRN Saw neurology Difficult intravenous access Assessment: has had difficulty with IV access, has needed US machine Obesity (BMI 30-39.9) Assessment: on phentermine for weight loss Last dose ~01/01/2024 or 01/02/2024, patient unsure which date, but will be on hold for at least 5 days for surgery POTS (postural orthostatic tachycardia syndrome) Assessment: has seen neuro and cardiology Rash Assessment: patient reports she has a rash of left breast that had a blister - the blister resolved but rash is still present, she reports it may have been caused by methylprednisolone she was put on for back pain - not currently on this med now. Rash is not itchy or painful, feels there is a lump on the inside of the breast in this area She said she has let surgeon know at their visit 12/26/2023. I will also send a telephone encounter since rash and lump still present Cantrell Activity Status Index: METS: Climb a flight of stairs or walk up a hill (5.50 METs) DASI Score: 5.5 (Patient's exercise includes: Walking and exercising with weighted ball ) Patient denies any chest pain or undue shortness of breath with the above physical activity. Clinical Frailty Scale: 3. Well, with treated comorbid disease STOP-Bang Score: Often feels tired, fatigued, or sleepy during the daytime BMI greater than 35 kg/m^2 Denies snoring loudly Has not been observed to stop breathing or choking/gasping during sleep Denies having high blood pressure Patient 50 years old or younger Does not have a large neck Non-male patient STOP-Bang Score: 2 ANESTHESIA FINDINGS: Intubation History: No history of difficult intubation Significant Anesthesia Considerations: pt reports she wakes up with migraine from anesthesia potential difficult IV/vein access Airway History: No history of difficult airway I - PHYSICAL EVALUATION AIRWAY Patient intubated: No. Tracheostomy tube not present Mallampati: III. TM distance: >3 FB. Neck ROM: full ROM without neurological symptoms. Mouth opening: adequate. Short neck: no. Thick neck: no Cruz present: no Lip Bite Test: II Microretrognathia/Micronagthia/Re cessed Chin: No DENTAL Dental findings: teeth intact. II - ANESTHESIA PLAN Anesthetic plan additional comments: - anesthesia choice. Beta Jimmie Monitoring Plan Post Procedure Analgesic Plan Prepared for Surgery: optimally prepared for surgery, pending [see comment]. 1. Telephone encounter to surgeon re. Breast rash/lump 2. Patient to get pre-op labs tomorrow CONSULTS: Patient does not require consults for optimization at this time Planned Anesthetic: anesthesia choice The Following Tests/Procedures Have Been Initiated: Labs ordered by surgeon This is a virtual visit using Advanced Telemetry video visit. It required patient-provider interaction for the medical decision making as documented below. REASON FOR VISIT: Sully Enriquez is a 33 year old female who is scheduled for Procedure(s): RIGHT ZAYDA EXCISIONAL BIOPSY (Right) at the request of Dr. Adele Sutton, Adele Robins MD for consultation. My final recommendation will be communicated back to the requesting physician by way of shared medical record or letter. Subjective The patient has the following: COVID-19 Immunization Status Overdue - Covid-19 Vaccine ( season) Never done No completion, postpone, frequency change, or communication history exists for this topic. CHIEF COMPLAINT: pre-op HPI: This 33 year old female with a history of right breast fibroadenoma is scheduled for the above procedure and presents to the [facility] for pre-operative examination. Patient reports she feels a right breast lump, noticed it first ~06/2023. It is painful. She is unclear if it has grown in size. This is a virtual visit. The visit was conducted using Advanced Telemetry video visit. It required patient-provider interaction for the medical decision making as documented below. I have communicated my name and active licensure. The patient's identity and physical location were verified at the time of this visit. Either the patient or their legal community health program representative has been informed of the risks and benefits of and alternatives to treatment through a remote evaluation and consents to proceed with the evaluation remotely. REVIEW OF SYSTEMS: General: +obesity - phentermine for weight loss, on hold Negative for: unintentional weight change, malaise and fever. Neurological: +POTS - has seen neuro and cardiology Positive for: seizures. Negative for: TIA and strokes. Respiratory: Negative for: asthma, COPD, current cough, dyspnea, pneumonia within 6 weeks and obstructive sleep apnea. Cardiovascular: Negative for: chest pain, CHF, DVT/PE, hyperlipidemia, hypertension, recent RI, PTCA, PVD and open heart surgery. GI: Negative for: dysphagia, GERD, GI bleed <30 days, liver disease and ETOH >2 drinks/day. : +hx recurrent UTIs, recently tx'd for infection, finished course of antibiotic, sxs resolved Positive for: nephrolithiasis (IN PAST, had surgery). Negative for: dysuria, frequent urination, hematuria, urinary incontinence and renal failure. CERTIFIED MEDICAL CODER: Negative for abnormal vaginal bleeding, abnormal vaginal discharge. Endocrine: Negative for: diabetes mellitus, hyperthyroidism, hypothyroidism and steroid for chronic problem. Hematology: Negative for: anemia, factor V Leiden, hemophilia and chronic anti-coagulation/platelet meds. Oncology: Negative for: CA metastasis, chemo within 30 days, disseminated cancer and radiotherapy within 90 days. Psych: Positive for: anxiety. Negative for: depression. Musculoskeletal: Positive for: back pain (DDD) and joint pain (arthritis). Negative for: swelling. Skin: No other rashes or skin issues Positive for: rash (Rash left breast with blister - blister resolved, but still has rash - no open wounds, not itchy or painful but she feels a lump on the inside ). PAST MEDICAL HISTORY Diagnosis Date Insomnia Kidney stone PAST SURGICAL HISTORY Procedure Laterality Date BUNIONECTOMY, LAPIDUS-TYPE rt foot BX OF BREAST; INCISIONAL RT BREAST 2X PAST SURGICAL HISTORY OF Nephrostomy tube removed PAST SURGICAL HISTORY OF hysterectomy still have ovaries PAST SURGICAL HISTORY OF cyst on ovaries removed several time PAST SURGICAL HISTORY OF kidney stones PAST SURGICAL HISTORY OF exploratory surgery for endometriosis PAST SURGICAL HISTORY OF LEEP procedure PAST SURGICAL HISTORY OF colonoscopy x 2 SALPINGECTOMY Bilateral 2010 FAMILY HISTORY Problem Relation Age of Onset Lung Cancer Father Heart Attack Father Osteoporosis Maternal Grandmother Cancer Maternal Grandmother IN NECK Breast Cancer Paternal Grandmother Social History Tobacco Use Smoking status: Never Smokeless tobacco: Never Substance Use Topics Alcohol use: Yes Comment: about 1-2 times per month will have ~2 drinks Drug use: Never Prior to Admission medications as of 01/06/24 1357 Medication Sig Last Dose Taking tizanidine HCl (ZANAFLEX ORAL) Zanaflex Taking Yes ALPRAZolam (XANAX) 1 mg tablet Take 1 mg by mouth twice daily as needed. Taking Yes Phentermine HCl 37.5 mg tablet once daily. Patient not taking: Reported on 01/06/2024 Not Taking No medication comments found. ALLERGIES Allergen Reactions Ciprofloxacin Unknown Dicyclomine Unknown Ketorolac Unknown Lorazepam Unknown Methylprednisolone Other: See Comments Rash, blistering Nitrofurantoin Unknown Penicillins Unknown Prednisone Intolerance Reglan [Metoclopram* Unknown Zithromax [Azithrom* Unknown Objective PHYSICAL EXAM: (if completed, exam performed via video enabled technology) General: alert and oriented and healthy appearance. Skin: Did not examine breast rash today since video exam is limited. Will let surgeon know. . HEENT: EOM intact. No injection and visual acuity is grossly normal Normocephalic External nose normal without rhinorrhea. Cardiovascular: Patient palpated radial pulse, RRR per patient counting method. Respiratory: Breathing non-labored, normal respiratory effort. Abdomen: Unable to examine over virtual visit. Extremities: Unable to examine over virtual visit. Neurological: No obvious deficits. PAIN ASSESSMENT: VITALS: Pulse 96[per pt counting method[ Ht 5' 5 [pt reported[ (1.65m) Wt 229 lb (103.9kg) BMI 38.11 kg/(m^2). Diagnostic tests reviewed for today's visit: Lab Value Units Date High Low HB No results within date range. HCT No results within date range. WBC No results within date range. PLT No results within date range. NA No results within date range. K No results within date range. GLUC No results within date range. BUN No results within date range. CREAT No results within date range. PTSEC No results within date range. INR No results within date range. APTT No results within date range. ALT No results within date range. AST No results within date range. TBILI No results within date range. TSH No results within date range. Lab Value Units Date High Low HCGQT No results within date range. UHCG No results within date range. HCG, BODY* No results within date range. Lab Value Units Date High Low ABORHD No results within date range. ABSCREEN No results within date range. No results found for: HBA1C No results found for this or any previous visit (from the past 8760 hour(s)). No results found for this or any previous visit (from the past 43106 hour(s)). Instructions Given to Patient: Instructions located in the after visit summary. Patient given verbal and written preop instructions and voices comprehension and compliance. SIGNATURE: Camila Russo PA-C PATIENT NAME: Sully Enriquez DATE: January 06, 2024 TIME: 1:51 PM PAGER/CONTACT #: [facility] 01-06-2024 History and physical note Images from the original note were not included. 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 No epilepsy per patient No treatment needed per patient Takes xanax PRN Saw neurology Difficult intravenous access Assessment: has had difficulty with IV access, has needed US machine Obesity (BMI 30-39.9) Assessment: on phentermine for weight loss Last dose ~01/01/2024 or 01/02/2024, patient unsure which date, but will be on hold for at least 5 days for surgery POTS (postural orthostatic tachycardia syndrome) Assessment: has seen neuro and cardiology Rash Assessment: patient reports she has a rash of left breast that had a blister - the blister resolved but rash is still present, she reports it may have been caused by methylprednisolone she was put on for back pain - not currently on this med now. Rash is not itchy or painful, feels there is a lump on the inside of the breast in this area She said she has let surgeon know at their visit 12/26/2023. I will also send a telephone encounter since rash and lump still present Cantrell Activity Status Index: METS: Climb a flight of stairs or walk up a hill (5.50 METs) DASI Score: 5.5 (Patient's exercise includes: Walking and exercising with weighted ball ) Patient denies any chest pain or undue shortness of breath with the above physical activity. Clinical Frailty Scale: 3. Well, with treated comorbid disease STOP-Bang Score: Often feels tired, fatigued, or sleepy during the daytime BMI greater than 35 kg/m^2 Denies snoring loudly Has not been observed to stop breathing or choking/gasping during sleep Denies having high blood pressure Patient 50 years old or younger Does not have a large neck Non-male patient STOP-Bang Score: 2 ANESTHESIA FINDINGS: Intubation History: No history of difficult intubation Significant Anesthesia Considerations: pt reports she wakes up with migraine from anesthesia potential difficult IV/vein access Airway History: No history of difficult airway I - PHYSICAL EVALUATION AIRWAY Patient intubated: No. Tracheostomy tube not present Mallampati: III. TM distance: >3 FB. Neck ROM: full ROM without neurological symptoms. Mouth opening: adequate. Short neck: no. Thick neck: no Cruz present: no Lip Bite Test: II Microretrognathia/Micronagthia/Re cessed Chin: No DENTAL Dental findings: teeth intact. II - ANESTHESIA PLAN Anesthetic plan additional comments: - anesthesia choice. Beta Jimmie Monitoring Plan Post Procedure Analgesic Plan Prepared for Surgery: optimally prepared for surgery, pending [see comment]. 1. Telephone encounter to surgeon re. Breast rash/lump 2. Patient to get pre-op labs tomorrow CONSULTS: Patient does not require consults for optimization at this time Planned Anesthetic: anesthesia choice The Following Tests/Procedures Have Been Initiated: Labs ordered by surgeon This is a virtual visit using Advanced Telemetry video visit. It required patient-provider interaction for the medical decision making as documented below. REASON FOR VISIT: Sully Enriquez is a 33 year old female who is scheduled for Procedure(s): RIGHT ZAYDA EXCISIONAL BIOPSY (Right) at the request of Dr. Adele Sutton, Adele Rboins MD for consultation. My final recommendation will be communicated back to the requesting physician by way of shared medical record or letter. Subjective The patient has the following: COVID-19 Immunization Status Overdue - Covid-19 Vaccine (2022- season) Never done No completion, postpone, frequency change, or communication history exists for this topic. CHIEF COMPLAINT: pre-op HPI: This 33 year old female with a history of right breast fibroadenoma is scheduled for the above procedure and presents to the [facility] for pre-operative examination. Patient reports she feels a right breast lump, noticed it first ~06/2023. It is painful. She is unclear if it has grown in size. This is a virtual visit. The visit was conducted using Advanced Telemetry video visit. It required patient-provider interaction for the medical decision making as documented below. I have communicated my name and active licensure. The patient's identity and physical location were verified at the time of this visit. Either the patient or their legal community health program representative has been informed of the risks and benefits of and alternatives to treatment through a remote evaluation and consents to proceed with the evaluation remotely. REVIEW OF SYSTEMS: General: +obesity - phentermine for weight loss, on hold Negative for: unintentional weight change, malaise and fever. Neurological: +POTS - has seen neuro and cardiology Positive for: seizures. Negative for: TIA and strokes. Respiratory: Negative for: asthma, COPD, current cough, dyspnea, pneumonia within 6 weeks and obstructive sleep apnea. Cardiovascular: Negative for: chest pain, CHF, DVT/PE, hyperlipidemia, hypertension, recent RI, PTCA, PVD and open heart surgery. GI: Negative for: dysphagia, GERD, GI bleed <30 days, liver disease and ETOH >2 drinks/day. : +hx recurrent UTIs, recently tx'd for infection, finished course of antibiotic, sxs resolved Positive for: nephrolithiasis (IN PAST, had surgery). Negative for: dysuria, frequent urination, hematuria, urinary incontinence and renal failure. CERTIFIED MEDICAL CODER: Negative for abnormal vaginal bleeding, abnormal vaginal discharge. Endocrine: Negative for: diabetes mellitus, hyperthyroidism, hypothyroidism and steroid for chronic problem. Hematology: Negative for: anemia, factor V Leiden, hemophilia and chronic anti-coagulation/platelet meds. Oncology: Negative for: CA metastasis, chemo within 30 days, disseminated cancer and radiotherapy within 90 days. Psych: Positive for: anxiety. Negative for: depression. Musculoskeletal: Positive for: back pain (DDD) and joint pain (arthritis). Negative for: swelling. Skin: No other rashes or skin issues Positive for: rash (Rash left breast with blister - blister resolved, but still has rash - no open wounds, not itchy or painful but she feels a lump on the inside ). PAST MEDICAL HISTORY Diagnosis Date Insomnia Kidney stone PAST SURGICAL HISTORY Procedure Laterality Date BUNIONECTOMY, LAPIDUS-TYPE rt foot BX OF BREAST; INCISIONAL RT BREAST 2X PAST SURGICAL HISTORY OF Nephrostomy tube removed PAST SURGICAL HISTORY OF hysterectomy still have ovaries PAST SURGICAL HISTORY OF cyst on ovaries removed several time PAST SURGICAL HISTORY OF kidney stones PAST SURGICAL HISTORY OF exploratory surgery for endometriosis PAST SURGICAL HISTORY OF LEEP procedure PAST SURGICAL HISTORY OF colonoscopy x 2 SALPINGECTOMY Bilateral 2010 FAMILY HISTORY Problem Relation Age of Onset Lung Cancer Father Heart Attack Father Osteoporosis Maternal Grandmother Cancer Maternal Grandmother IN NECK Breast Cancer Paternal Grandmother Social History Tobacco Use Smoking status: Never Smokeless tobacco: Never Substance Use Topics Alcohol use: Yes Comment: about 1-2 times per month will have ~2 drinks Drug use: Never Prior to Admission medications as of 01/06/24 1357 Medication Sig Last Dose Taking tizanidine HCl (ZANAFLEX ORAL) Zanaflex Taking Yes ALPRAZolam (XANAX) 1 mg tablet Take 1 mg by mouth twice daily as needed. Taking Yes Phentermine HCl 37.5 mg tablet once daily. Patient not taking: Reported on 01/06/2024 Not Taking No medication comments found. ALLERGIES Allergen Reactions Ciprofloxacin Unknown Dicyclomine Unknown Ketorolac Unknown Lorazepam Unknown Methylprednisolone Other: See Comments Rash, blistering Nitrofurantoin Unknown Penicillins Unknown Prednisone Intolerance Reglan [Metoclopram* Unknown Zithromax [Azithrom* Unknown Objective PHYSICAL EXAM: (if completed, exam performed via video enabled technology) General: alert and oriented and healthy appearance. Skin: Did not examine breast rash today since video exam is limited. Will let surgeon know. . HEENT: EOM intact. No injection and visual acuity is grossly normal Normocephalic External nose normal without rhinorrhea. Cardiovascular: Patient palpated radial pulse, RRR per patient counting method. Respiratory: Breathing non-labored, normal respiratory effort. Abdomen: Unable to examine over virtual visit. Extremities: Unable to examine over virtual visit. Neurological: No obvious deficits. PAIN ASSESSMENT: VITALS: Pulse 96[per pt counting method[ Ht 5' 5 [pt reported[ (1.65m) Wt 229 lb (103.9kg) BMI 38.11 kg/(m^2). Diagnostic tests reviewed for today's visit: Lab Value Units Date High Low HB No results within date range. HCT No results within date range. WBC No results within date range. PLT No results within date range. NA No results within date range. K No results within date range. GLUC No results within date range. BUN No results within date range. CREAT No results within date range. PTSEC No results within date range. INR No results within date range. APTT No results within date range. ALT No results within date range. AST No results within date range. TBILI No results within date range. TSH No results within date range. Lab Value Units Date High Low HCGQT No results within date range. UHCG No results within date range. HCG, BODY* No results within date range. Lab Value Units Date High Low ABORHD No results within date range. ABSCREEN No results within date range. No results found for: HBA1C No results found for this or any previous visit (from the past 8760 hour(s)). No results found for this or any previous visit (from the past 38044 hour(s)). Instructions Given to Patient: Instructions located in the after visit summary. Patient given verbal and written preop instructions and voices comprehension and compliance. SIGNATURE: Camila Russo PA-C PATIENT NAME: Sully Enriquez DATE: January 06, 2024 TIME: 1:51 PM PAGER/CONTACT #: documented in this encounter [facility] 01-02-2024 Telephone encounter Note This patient was scheduled with me today for virtual [facility] visit. She checked in for appointment at 10:57 AM. I signed into visit at 11:05 AM and noticed that patient was no longer connected to visit. I placed a telephone call to patient and left a voicemail offering assistance with signing in so we could get reconnected. Patient did not return my call. I called again 5 minutes later to check in again and patient did not answer the phone. She did not return my call nor did she sign back into visit. PACC visit was not completed. Can you please contact patient to reschedule? Thank you! Salina Dickinson PA-C [facility] Work Phone: 01-02-2024 Miscellaneous Notes This patient was scheduled with me today for virtual [facility] visit. She checked in for appointment at 10:57 AM. I signed into visit at 11:05 AM and noticed that patient was no longer connected to visit. I placed a telephone call to patient and left a voicemail offering assistance with signing in so we could get reconnected. Patient did not return my call. I called again 5 minutes later to check in again and patient did not answer the phone. She did not return my call nor did she sign back into visit. PACC visit was not completed. Can you please contact patient to reschedule? Thank you! Salina Dickinson PA-C [facility] documented in this encounter [facility] 12-31-2023 Telephone encounter Note Patient was scheduled for virtual [facility] appt at 1500 today. Patient did not check in for visit. Called patient at 1505, stated they forgot and needed to reschedule This message routed to [facility] schedulers to contact patient to reschedule [facility] appt. Tamika Camacho APRN.GÓMEZ [facility] Work Phone: 12-31-2023 Miscellaneous Notes Patient was scheduled for virtual [facility] appt at 1500 today. Patient did not check in for visit. Called patient at 1505, stated they forgot and needed to reschedule This message routed to [facility] schedulers to contact patient to reschedule [facility] appt. Tamika Camacho APRN.CNP documented in this encounter [facility] 12-29-2023 Telephone encounter Note I have reviewed and approved the localization plan. Images dated 09/08/2023 are annotated. Radiologist: Edgard Cole MD [facility] Work Phone: 12-29-2023 Miscellaneous Notes I have reviewed and approved the localization plan. Images dated 09/08/2023 are annotated. Radiologist: Edgard Cole MD LOCALIZATION IMAGE REVIEW (Please do NOT submit until entire workup complete) (if > 3 reflectors to be placed in one breast, please review with radiologist) Sully Enriquez [id number] 1990 WORK- UP COMPLETE? Yes Order Placed Yes Right - Site 1 Location 8:00 4-5cm fn Clip Shape Coil Clip Clip Migration No Pathology FibroAdenoma Preferred Localization zayda * If clip migrated, please review with radiologist This Form Has Been Completed By Kobe Wallis On Behalf Of Dr. Sutton documented in this encounter [facility] 12-26-2023 Telephone encounter Note LOCALIZATION IMAGE REVIEW (Please do NOT submit until entire workup complete) (if > 3 reflectors to be placed in one breast, please review with radiologist) Sully Enriquez [id number] 1990 WORK- UP COMPLETE? Yes Order Placed Yes Right - Site 1 Location 8:00 4-5cm fn Clip Shape Coil Clip Clip Migration No Pathology FibroAdenoma Preferred Localization zayda * If clip migrated, please review with radiologist This Form Has Been Completed By Kobe Wallis On Behalf Of Dr. Sutton [facility] 12-26-2023 History and physical note Images from the original note were not included. [facility] REASON for TODAY'S VISIT: Patient presents with: New Patient REFERRAL: Referring Provider: Franchesca Man PCP: Keli Strickland NP, FLA[employer]ORING OIL FILTERER My clinic note and plan will be communicated back to the referring physician by way of shared medical record and/or written letter via US mail. HISTORY of PRESENT ILLNESS: Sully Enriquez is a 33 year old White premenopausal female who presents today accompanied by her friend, Maliha, regarding a recently diagnosed RIGHT breast fibroadenoma first identified on self exam in 06/2023. It has not changed in size since she first noticed it. She denies any nipple discharge, breast skin changes, breast pain, or nipple inversion. Reports bilateral breast tenderness. First felt a mass with right sided milky white nipple discharge in 06/2023. Took nipple piercing out of R side 2 weeks ago, noticed nipple was inverted which was new since before the mass so she put it back in. No current nipple inversion with the piercing in place or discharge. Here to discuss expectant management vs. Surgical excision. BREAST HISTORY: 06/2023 - Self palpated RIGHT breast mass. 06/25/23 ([facility]) - diagnostic bilateral mammogram/US - diffuse heterogenous density. In the right breast at 8:00 approximately 4 to 5 cm from the nipple, is a hypoechoic avascular area that measures 2.0 x 1.6 x 1.1 cm. In the right upper outer quadrant of the breast at 2.8 x 1.0 x 2.8 cm lymph node is seen. There is no cortical thickening. 07/07/23 ([facility] - US guided CNB 8:00 4-5 CMFN 2 x 1 x 1.7 cm mass with unspecified clip placement - fibrocystic change. Concordant. 08/07/23 ([facility] - RIGHT breast US - 8:00 4-5 CMFN 2 x 0.9 x 1.3 cm mass. 9:00 9 CMFN, no US abnormality to correlate with area of pain. 09/08/23 ([facility]) - Right breast at 8 o'clock, 4-5 cm from nipple, ultrasound-guided core biopsy with coil clip placement: Fibroadenoma.Concordant. BREAST & CERTIFIED MEDICAL CODER RELATED HISTORY: Prior biopsies: as above Prior surgeries: as above Implants: No Contraceptive use: Current: none Past: OCPs in 2011 at age 20 Exogenous hormone use: none Prior radiation: There is no history of Radiation Therapy. OB History T0 L0 SAB0 IAB0 Ectopic0 Multiple0 Live Births0 Bone Char Kiln Operator History LMP: Hysterectomy Age at Menarche: 12 Age at First : 14 Age at Menopause: Bone Char Kiln Operator History Comments: Sexual Activity: No sexual activity data on record; No partner data on record Contraception: No contraception data on record Age at first live :15 She did not breast feed her child. Age at menarche: 12 Gynecologic surgery: Hysterectomy d/t endometriosis in 2021. Bilateral salpingectomy in 2010. Ovaries are in situ. FAMILY HISTORY: FAMILY HISTORY Problem Relation Age of Onset Lung Cancer Father Heart Attack Father Osteoporosis Maternal Grandmother Cancer Maternal Grandmother IN NECK Breast Cancer Paternal Grandmother Ashkenazic Ancestry unknown. She has 2 sisters. History of Genetic Testing: No Patient denies any known personal or family history of Hemophilia, VonWillebrands Disease. Patient denies any known personal history of DVT, PE or coagulopathy. Grandma had a TIA in the setting of post-chemotherapy. 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 Lives at home with and children. Stays active by exercising with kids. PAST MEDICAL HISTORY:PAST MEDICAL HISTORY No date: Insomnia No date: Kidney stone Recurrent Kidney Stones and UTIs. Has PNES. PAST SURGICAL HISTORY: PAST SURGICAL HISTORY No date: BUNIONECTOMY, LAPIDUS-TYPE Comment: rt foot No date: BX OF BREAST; INCISIONAL Comment: RT BREAST 2X No date: PAST SURGICAL HISTORY OF Comment: Nephrostomy tube removed No date: PAST SURGICAL HISTORY OF Comment: hysterectomy still have ovaries No date: PAST SURGICAL HISTORY OF Comment: cyst on ovaries removed several time No date: PAST SURGICAL HISTORY OF Comment: kidney stones 2011: SALPINGECTOMY; Bilateral PROBLEM LIST:ACTIVE PROBLEM LIST Seizure (Hcc) Headaches ALLERGIES: ALLERGIES Allergen Reactions Ciprofloxacin Unknown Dicyclomine Unknown Ketorolac Unknown Lorazepam Unknown Nitrofurantoin Unknown Penicillins Unknown Prednisone Intolerance Reglan [Metoclopram* Unknown Zithromax [Azithrom* Unknown CURRENT MEDICATIONS: tizanidine HCl (ZANAFLEX ORAL) Zanaflex Phentermine HCl 37.5 mg tablet once daily. ALPRAZolam (XANAX) 1 mg tablet Take 1 mg by mouth twice daily as needed. REVIEW OF SYSTEMS: Review of Systems Constitutional: Negative for chills, fever, malaise/fatigue and weight loss. Respiratory: Negative for cough and shortness of breath. Cardiovascular: Negative for chest pain. Gastrointestinal: Negative for nausea and vomiting. Musculoskeletal: No bone pain Neurological: Negative for weakness and headaches. see HPI EXAMINATION: Ht 165.1 cm (5' 5 ) Wt 105.2 kg (232 lb) BMI 38.61 kg/m Body mass index is 38.61 kg/m . Physical Exam Exam conducted with a form setter metal road forms present. Constitutional: General: She is not in acute distress. Appearance: Normal appearance. HENT: Head: Normocephalic and atraumatic. Eyes: Extraocular Movements: Extraocular movements intact. Pupils: Pupils are equal, round, and reactive to light. Pulmonary: Effort: Pulmonary effort is normal. Chest: Breasts: Right: Tenderness present. No swelling, bleeding, inverted nipple, mass, nipple discharge or skin change. Left: Normal. No swelling, bleeding, inverted nipple, mass, nipple discharge, skin change or tenderness. Comments: - Bilateral nipple piercings - Severe tenderness on palpation of the R breast - Mass unable to be thoroughly palpated d/t pain Musculoskeletal: General: Normal range of motion. Cervical back: Normal range of motion. Lymphadenopathy: Upper Body: Right upper body: No supraclavicular or axillary adenopathy. Left upper body: No supraclavicular or axillary adenopathy. Skin: General: Skin is warm and dry. Coloration: Skin is not jaundiced. Findings: No rash. Neurological: General: No focal deficit present. Mental Status: She is alert and oriented to person, place, and time. Gait: Gait normal. Psychiatric: Mood and Affect: Mood normal. Behavior: Behavior normal. Thought Content: Thought content normal. Judgment: Judgment normal. Ptosis: Grade II BREAST IMAGING: [facility] Breast [facility] was reviewed. Excerpts from Breast Imaging Studies Results US BREAST LTD RIGHT (Acc#[id number]) (Order [id number]) Patient Info Patient Name Sex Sully Adam ([id number]) Female 1990 08/07/2023 1:24 PM - Radiology, [place] In Impression IMPRESSION: BENIGN FINDING No sonographic abnormality at the site of clinical concern at 9:00. Circumscribed mass right breast 8:00 which is previously biopsied and reportedly benign. Clinical follow-up is recommended. Annual screening mammogram is recommended per NCCN guidelines based on patient's risk factors for breast cancer. Janes Winston M.D. ns/:08/07/2023 13:24:03 Vat House Supervisor(s): RT Mirtha(R)(M), [facility] Ultrasound BI-RADS: 2 Benign finding Multiple national specialty organizations have released breast cancer screening guidelines for women at average risk for developing breast cancer - guidelines that are based on both evidence and opinion, yet differ on when to start and how often to screen for breast cancer. With representation from Breast Imaging, Internal Medicine, Women's Health, Family Medicine, and Medical/Surgical Oncology, the [facility] has carefully reviewed the data and [...] their providers when to stop screening mammograms. Director Of Digital Technology: Aracely Transcribe Date/Time: Aug 07 2023 11:56A Dictated by : JANES WINSTON MD This examination was interpreted and the report reviewed and electronically signed by: JANES WINSTON MD on Aug 07 2023 1:24PM EST Results-Findings * * *Final Report* * * DATE OF EXAM: Aug 07 2023 12:08PM [facility] 0594 - [facility] US BREAST LTD RT / PROCEDURE REASON: multiple diagnoses * * * * Physician Interpretation * * * * RESULT: #[id number] - [facility] US BREAST LTD RT LIMITED ULTRASOUND OF RIGHT BREAST: 08/07/2023 [...] recently biopsied mass which is reportedly benign. Results [facility] DIAG W DOMINIC RIGHT ([id number]) (Order [id number]) Patient Info Patient Name Sex Sully Adam ([id number]) Female 1990 09/11/2023 2:33 PM - Radiology, [facility] In Addenda * * *Final Report* * * * * * SEE BOTTOM OF REPORT FOR ADDENDED TEXT * * * DATE OF EXAM: Sep 08 2023 2:52PM [facility] 0629 - [facility] DIAG W DOMINIC RT / PROCEDURE REASON: multiple diagnoses * * * * Physician Interpretation * * * * RESULT: FINAL REPORT #[id number] - [facility] DIAG W DOMINIC RT #[id number] - [facility] US BIOPSY BREAST RT ULTRASOUND [...] Almanzar performed the entire procedure without an child life assistant. Audible Time Out Time: 1420 Procedure [...] surgical consultation. Lea Almanzar M.D., jr/aracely:09/11/2023 14:32:49 Vat House Supervisor(s): RT Mane(R)(M), [facility] Multiple national specialty organizations have released breast cancer screening guidelines for women at average risk for developing breast cancer - guidelines that are based on both evidence and opinion, yet differ on when to start and how often to screen for breast cancer. With representation from Breast Imaging, Internal Medicine, Women's Health, Family Medicine, and Medical/Surgical Oncology, the [facility] has carefully reviewed the data and [...] their providers when to stop screening mammograms. Director Of Digital Technology: Aracely Transcribe Date/Time: Sep 08 2023 2:52P Dictated by : LEA ALMANZAR MD This examination was interpreted and the report reviewed and electronically signed by: LEA ALMANZAR MD on Sep 08 2023 4:24PM EST This document has been addended by: LEA ALMANZAR MD on Sep 11 2023 2:32PM EST PATHOLOGY: SURGICAL PATHOLOGY: [id number] Order: [id number] Collected 09/08/2023 2:04 PM Status: Final result Visible to patient: Yes (seen) Dx: Mastodynia; Nipple discharge; Family ... 0 Result Notes Component Resulting Agency FINAL DIAGNOSIS A. Right breast at 8 o'clock, 4-5 cm from nipple, ultrasound-guided core biopsy with coil clip placement: - Fibroadenoma. Assessment/Plan ASSESSMENT/PLAN: Ms. Enriquez is a 33 year old premenopausal female who has a past medical history of Insomnia and Kidney stone. and a recently diagnosed RIGHT Breast fibroadenoma. We discussed other possible diagnoses besides fibroadenoma which could include phyllodes tumor. We talked about recommendations for excision being symptoms, increasing size, or size >2cm to rule-out phyllodes tumor and avoid further growth. Besides excision these can be followed with 6 month interval ultrasound. Due to mass size and severe tenderness on exam, I do recommend excision at this time. She understands with any breast surgery that there is a risk of bleeding, hematoma, infection, nipple necrosis or loss, loss of sensation to the nipple, inability to breastfeed, need for possible additional surgery, and cosmetic/contour change. She acknowledges these risks and agrees to proceed. The patient is aware that in the unlikely event a cancer is found, we would need to have a more thorough discussion at that time regarding possible additional local/regional therapy. She is aware that we will ask her to be at reduced activity for approximately two weeks after the surgery. She was given the opportunity to ask questions. Additional workup needed: ZAYDA patient service representative placement by BOTH (coil + unspecified) clips in RIGHT breast - fibroadenoma Interdisciplinary care and follow up: SURGICAL ONCOLOGY: Adele Sutton MD Tentative surgical plan: RIGHT breast ZAYDA-Operating Theatre Technician guided excision Consents were sent via RightScalet. Postoperative analgesia was discussed. She WILL need prescriptions for tylenol, motrin, & gabapentin on the day of surgery. GLP-1 agonist or SGLT2 inhibitor use: No PRIMARY CARE PHYSICIAN: Ms. Enriquez is followed by Keli Strickland NP, FLAVORING OIL FILTERER as scheduled. Ms. Enriquez will return to our office postoperatively. She has our names and numbers to contact us if she has any questions or concerns. Future Appointments Date Time Provider Department Center 02/17/2024 1:00 PM [facility] Monalisa Sutton MD, FACOG Breast Surgical Oncology & Benign Gynecology [address] [place] [address] Appointment cc: Franchesca Man [address] [facility] [address] Keli Strickland NP, FLAVORING OIL FILTERER I spent a total of 30 minutes on the date of the service which included preparing to see the patient, [id number] patient care, completing clinical documentation, obtaining and/or reviewing separately obtained history, performing a medically appropriate examination, and counseling and educating the patient/family/caregiver. [facility] 12-26-2023 History and physical note Images from the original note were not included. [facility] Department of General Surgery [facility] REASON for TODAY'S VISIT: Patient presents with: New Patient REFERRAL: Referring Provider: Franchesca Man PCP: Keli Strickland NP, FLAVORING OIL FILTERER My clinic note and plan will be communicated back to the referring physician by way of shared medical record and/or written letter via US mail. HISTORY of PRESENT ILLNESS: Sully Enriquez is a 33 year old White premenopausal female who presents today accompanied by her friend, Maliha, regarding a recently diagnosed RIGHT breast fibroadenoma first identified on self exam in 06/2023. It has not changed in size since she first noticed it. She denies any nipple discharge, breast skin changes, breast pain, or nipple inversion. Reports bilateral breast tenderness. First felt a mass with right sided milky white nipple discharge in 06/2023. Took nipple piercing out of R side 2 weeks ago, noticed nipple was inverted which was new since before the mass so she put it back in. No current nipple inversion with the piercing in place or discharge. Here to discuss expectant management vs. Surgical excision. BREAST HISTORY: 06/2023 - Self palpated RIGHT breast mass. 06/25/23 ([facility]) - diagnostic bilateral mammogram/US - diffuse heterogenous density. In the right breast at 8:00 approximately 4 to 5 cm from the nipple, is a hypoechoic avascular area that measures 2.0 x 1.6 x 1.1 cm. In the right upper outer quadrant of the breast at 2.8 x 1.0 x 2.8 cm lymph node is seen. There is no cortical thickening. 07/07/23 ([facility] - US guided CNB 8:00 4-5 CMFN 2 x 1 x 1.7 cm mass with unspecified clip placement - fibrocystic change. Concordant. 08/07/23 ([facility]) - RIGHT breast US - 8:00 4-5 CMFN 2 x 0.9 x 1.3 cm mass. 9:00 9 CMFN, no US abnormality to correlate with area of pain. 09/08/23 ([facility]) - Right breast at 8 o'clock, 4-5 cm from nipple, ultrasound-guided core biopsy with coil clip placement: Fibroadenoma.Concordant. BREAST & CERTIFIED MEDICAL CODER RELATED HISTORY: Prior biopsies: as above Prior surgeries: as above Implants: No Contraceptive use: Current: none Past: OCPs in 2011 at age 20 Exogenous hormone use: none Prior radiation: There is no history of Radiation Therapy. OB History T0 L0 SAB0 IAB0 Ectopic0 Multiple0 Live Births0 Bone Char Kiln Operator History LMP: Hysterectomy Age at Menarche: 12 Age at First : 14 Age at Menopause: Bone Char Kiln Operator History Comments: Sexual Activity: No sexual activity data on record; No partner data on record Contraception: No contraception data on record Age at first live :15 She did not breast feed her child. Age at menarche: 12 Gynecologic surgery: Hysterectomy d/t endometriosis in 2021. Bilateral salpingectomy in 2010. Ovaries are in situ. FAMILY HISTORY: FAMILY HISTORY Problem Relation Age of Onset Lung Cancer Father Heart Attack Father Osteoporosis Maternal Grandmother Cancer Maternal Grandmother IN NECK Breast Cancer Paternal Grandmother Ashkenazic Ancestry unknown. She has 2 sisters. History of Genetic Testing: No Patient denies any known personal or family history of Hemophilia, VonWillebrands Disease. Patient denies any known personal history of DVT, PE or coagulopathy. Grandma had a TIA in the setting of post-chemotherapy. 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 Lives at home with and children. Stays active by exercising with kids. PAST MEDICAL HISTORY:PAST MEDICAL HISTORY No date: Insomnia No date: Kidney stone Recurrent Kidney Stones and UTIs. Has PNES. PAST SURGICAL HISTORY: PAST SURGICAL HISTORY No date: BUNIONECTOMY, LAPIDUS-TYPE Comment: rt foot No date: BX OF BREAST; INCISIONAL Comment: RT BREAST 2X No date: PAST SURGICAL HISTORY OF Comment: Nephrostomy tube removed No date: PAST SURGICAL HISTORY OF Comment: hysterectomy still have ovaries No date: PAST SURGICAL HISTORY OF Comment: cyst on ovaries removed several time No date: PAST SURGICAL HISTORY OF Comment: kidney stones 2011: SALPINGECTOMY; Bilateral PROBLEM LIST:ACTIVE PROBLEM LIST Seizure (Hcc) Headaches ALLERGIES: ALLERGIES Allergen Reactions Ciprofloxacin Unknown Dicyclomine Unknown Ketorolac Unknown Lorazepam Unknown Nitrofurantoin Unknown Penicillins Unknown Prednisone Intolerance Reglan [Metoclopram* Unknown Zithromax [Azithrom* Unknown CURRENT MEDICATIONS: tizanidine HCl (ZANAFLEX ORAL) Zanaflex Phentermine HCl 37.5 mg tablet once daily. ALPRAZolam (XANAX) 1 mg tablet Take 1 mg by mouth twice daily as needed. REVIEW OF SYSTEMS: Review of Systems Constitutional: Negative for chills, fever, malaise/fatigue and weight loss. Respiratory: Negative for cough and shortness of breath. Cardiovascular: Negative for chest pain. Gastrointestinal: Negative for nausea and vomiting. Musculoskeletal: No bone pain Neurological: Negative for weakness and headaches. see HPI EXAMINATION: Ht 165.1 cm (5' 5 ) Wt 105.2 kg (232 lb) BMI 38.61 kg/m Body mass index is 38.61 kg/m . Physical Exam Exam conducted with a form setter metal road forms present. Constitutional: General: She is not in acute distress. Appearance: Normal appearance. HENT: Head: Normocephalic and atraumatic. Eyes: Extraocular Movements: Extraocular movements intact. Pupils: Pupils are equal, round, and reactive to light. Pulmonary: Effort: Pulmonary effort is normal. Chest: Breasts: Right: Tenderness present. No swelling, bleeding, inverted nipple, mass, nipple discharge or skin change. Left: Normal. No swelling, bleeding, inverted nipple, mass, nipple discharge, skin change or tenderness. Comments: - Bilateral nipple piercings - Severe tenderness on palpation of the R breast - Mass unable to be thoroughly palpated d/t pain Musculoskeletal: General: Normal range of motion. Cervical back: Normal range of motion. Lymphadenopathy: Upper Body: Right upper body: No supraclavicular or axillary adenopathy. Left upper body: No supraclavicular or axillary adenopathy. Skin: General: Skin is warm and dry. Coloration: Skin is not jaundiced. Findings: No rash. Neurological: General: No focal deficit present. Mental Status: She is alert and oriented to person, place, and time. Gait: Gait normal. Psychiatric: Mood and Affect: Mood normal. Behavior: Behavior normal. Thought Content: Thought content normal. Judgment: Judgment normal. Ptosis: Grade II BREAST IMAGING: [facility] Breast Imaging was reviewed. Excerpts from Breast Imaging Studies Results US BREAST LTD RIGHT ([id number]) (Order [id number]) Patient Info Patient Name Sex Sully Adam ([id number]) Female 1990 08/07/2023 1:24 PM - Radiology, [facility] In Impression IMPRESSION: BENIGN FINDING No sonographic abnormality at the site of clinical concern at 9:00. Circumscribed mass right breast 8:00 which is previously biopsied and reportedly benign. Clinical follow-up is recommended. Annual screening mammogram is recommended per NCCN guidelines based on patient's risk factors for breast cancer. Janes Winston M.D. ns/:08/07/2023 13:24:03 Vat House Supervisor(s): RT Mirtha(R)(M), [facility] Ultrasound BI-RADS: 2 Benign finding Multiple national specialty organizations have released breast cancer screening guidelines for women at average risk for developing breast cancer - guidelines that are based on both evidence and opinion, yet differ on when to start and how often to screen for breast cancer. With representation from Breast Imaging, Internal Medicine, Women's Health, Family Medicine, and Medical/Surgical Oncology, the [facility] has carefully reviewed the data and [...] their providers when to stop screening mammograms. Director Of Digital Technology: Aracely Transcribe Date/Time: Aug 07 2023 11:56A Dictated by : JANES WINSTON MD This examination was interpreted and the report reviewed and electronically signed by: JANES WINSTON MD on Aug 07 2023 1:24PM EST Results-Findings * * *Final Report* * * DATE OF EXAM: Aug 07 2023 12:08PM [facility] 0594 - [facility] US BREAST LTD RT / PROCEDURE REASON: multiple diagnoses * * * * Physician Interpretation * * * * RESULT: #[id number] - [facility] US BREAST LTD RT LIMITED ULTRASOUND OF RIGHT BREAST: 08/07/2023 [...] recently biopsied mass which is reportedly benign. Results [facility] DIAG W DOMINIC RIGHT (Acc#[id number]) (Order [id number]) Patient Info Patient Name Sex Sully Adam ([id number]) Female 1990 09/11/2023 2:33 PM - Radiology, [facility] In Addenda * * *Final Report* * * * * * SEE BOTTOM OF REPORT FOR ADDENDED TEXT * * * DATE OF EXAM: Sep 08 2023 2:52PM [facility] 0629 - [facility] DIAG W DOMINIC RT / PROCEDURE REASON: multiple diagnoses * * * * Physician Interpretation * * * * RESULT: FINAL REPORT #[id number] - [facility] DIAG W DOMINIC RT #[id number] - [facility] US BIOPSY BREAST RT ULTRASOUND [...] Almanzar performed the entire procedure without an child life assistant. Audible Time Out Time: 1420 Procedure [...] surgical consultation. Lea Almanzar M.D., jr/aracely:09/11/2023 14:32:49 Vat House Supervisor(s): RT Mane(R)(M), [facility] [place] Multiple national specialty organizations have released breast cancer screening guidelines for women at average risk for developing breast cancer - guidelines that are based on both evidence and opinion, yet differ on when to start and how often to screen for breast cancer. With representation from Breast Imaging, Internal Medicine, Women's Health, Family Medicine, and Medical/Surgical Oncology, the [facility] has carefully reviewed the data and [...] their providers when to stop screening mammograms. Director Of Digital Technology: Aracely Transcribe Date/Time: Sep 08 2023 2:52P Dictated by : LEA ALMANZAR MD This examination was interpreted and the report reviewed and electronically signed by: LEA ALMANZAR MD on Sep 08 2023 4:24PM EST This document has been addended by: LEA ALMANZAR MD on Sep 11 2023 2:32PM EST PATHOLOGY: SURGICAL PATHOLOGY: [id number] Order: [id number] Collected 09/08/2023 2:04 PM Status: Final result Visible to patient: Yes (seen) Dx: Mastodynia; Nipple discharge; Family ... 0 Result Notes Component Resulting Agency FINAL DIAGNOSIS A. Right breast at 8 o'clock, 4-5 cm from nipple, ultrasound-guided core biopsy with coil clip placement: - Fibroadenoma. Assessment/Plan ASSESSMENT/PLAN: Ms. Enriquez is a 33 year old premenopausal female who has a past medical history of Insomnia and Kidney stone. and a recently diagnosed RIGHT Breast fibroadenoma. We discussed other possible diagnoses besides fibroadenoma which could include phyllodes tumor. We talked about recommendations for excision being symptoms, increasing size, or size >2cm to rule-out phyllodes tumor and avoid further growth. Besides excision these can be followed with 6 month interval ultrasound. Due to mass size and severe tenderness on exam, I do recommend excision at this time. She understands with any breast surgery that there is a risk of bleeding, hematoma, infection, nipple necrosis or loss, loss of sensation to the nipple, inability to breastfeed, need for possible additional surgery, and cosmetic/contour change. She acknowledges these risks and agrees to proceed. The patient is aware that in the unlikely event a cancer is found, we would need to have a more thorough discussion at that time regarding possible additional local/regional therapy. She is aware that we will ask her to be at reduced activity for approximately two weeks after the surgery. She was given the opportunity to ask questions. Additional workup needed: ZAYDA patient service representative placement by BOTH (coil + unspecified) clips in RIGHT breast - fibroadenoma Interdisciplinary care and follow up: SURGICAL ONCOLOGY: Adele Sutton MD Tentative surgical plan: RIGHT breast ZAYDA-Operating Theatre Technician guided excision Consents were sent via [employer]. Postoperative analgesia was discussed. She WILL need prescriptions for tylenol, motrin, & gabapentin on the day of surgery. GLP-1 agonist or SGLT2 inhibitor use: No PRIMARY CARE PHYSICIAN: Ms. Enriquez is followed by Keli Strickland NP, FLAVORING OIL FILTERER as scheduled. Ms. Enriquez will return to our office postoperatively. She has our names and numbers to contact us if she has any questions or concerns. Future Appointments Date Time Provider Department Center 02/17/2024 1:00 PM [facility]aughn Anderson [facility] Monalisa Sutton MD, FACOG Breast Surgical Oncology & Benign Gynecology [facility] [address] [place] [address] Appointment cc: Franchesca Man [address] [facility] [address] Keli Strickland, MAIKOL, FLAVORING OIL FILTERER I spent a total of 30 minutes on the date of the service which included preparing to see the patient, [id number] patient care, completing clinical documentation, obtaining and/or reviewing separately obtained history, performing a medically appropriate examination, and counseling and educating the patient/family/caregiver. 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 The patient is present with her spouse, Jamari. The couple live together in [place], [place], denying any financial strains. She is employed. No active community resource. Her primary care provider is Dr. Mario Glasgow at [facility]. Her discharge plan is home. [facility] 09-12-2023 Telephone encounter Note Spoke to patient and relayed results from biopsy (benign FA). We discussed that because the FA is 2cm in size and bothersome it is reasonable to see a breast surgeon to discuss the possibility of excision. She is agreeable and voices understanding. Consult placed. [facility] 09-12-2023 Miscellaneous Notes Spoke to patient and relayed results from biopsy (benign FA). We discussed that because the FA is 2cm in size and bothersome it is reasonable to see a breast surgeon to discuss the possibility of excision. She is agreeable and voices understanding. Consult placed. documented in this encounter [facility] 09-11-2023 Telephone encounter Note Called pt to discuss biopsy result and recommendations. No answer, will try back tomorrow morning. [facility] 09-11-2023 Miscellaneous Notes Called pt to discuss biopsy result and recommendations. No answer, will try back tomorrow morning. documented in this encounter [facility] 09-11-2023 Telephone encounter Note Called patient to notify the breast pathology results are fibroadenoma per Dr. Almanzar. Patient will call back to assist with surgical consult appt. Dr. Almanzar is aware. [facility] 09-11-2023 Miscellaneous Notes Called patient to notify the breast pathology results are fibroadenoma per Dr. Almanzar. Patient will call back to assist with surgical consult appt. Dr. Almanzar is aware. documented in this encounter [facility] 09-08-2023 Instructions Formatting of th is [...] SUPPLEMENTAL MATERIAL: Homegoing instructions REFERRAL (RECOMMENDATION): None [facility] 09-08-2023 Miscellaneous Notes AMBULATORY PATIENT EDUCATION [...] REFERRAL (RECOMMENDATION): None documented in this encounter [facility] 08-11-2023 Telephone encounter Note Spoke to patient and gave her results of over-read. She wants to proceed with biopsy. Order placed. [facility] 08-11-2023 Miscellaneous Notes Spoke to patient and gave her results of over-read. She wants to proceed with biopsy. Order placed. documented in this encounter [facility] 08-07-2023 History of Present illness Narrative Radiology Service Progress Note PATIENT [...] PATIENT PRESENTS WITH AN IMPLANTABLE OR ATTACHED VARIETY PERFORMER: No RADIOLOGY DEPARTMENT: Mammography PERIPHERAL IV DATA: Not applicable SIGNED BY: RT Campos(Jd) August 07, 2023 12:36 PM documented in this encounter [facility] 08-07-2023 Note HNO ID: [id number] Author: MARILYN JARRELL RT(R) Service: Radiology Author [...] PATIENT PRESENTS WITH AN IMPLANTABLE OR ATTACHED VARIETY PERFORMER: No RADIOLOGY DEPARTMENT: Mammography PERIPHERAL IV DATA: Not applicable SIGNED BY: RT Campos(Jd) August 07, 2023 12:36 PM [facility] 08-07-2023 History of Present illness Narrative MEDICAL BREAST PATIENT NAME: Sluly Enriquez 08/07/2023 REFERRAL: She is self referred for an opinion regarding right breast biopsy. HISTORY of PRESENT ILLNESS: Sully Enriquez is a 33 year old year old premenopausal woman who presents to the [facility] [place] today for second opinion of right breast [...] related issues at [facility]) with care as follows: 06/25/23: Diagnostic bilateral DBT and US at [facility]): - RIGHT breast 8oclock 4-5cmfn hypoechoic 2cm [...] mammograms. A prolactin was previously ordered at [facility] (06/18/23) and [facility]. A TSH was ordered today. She was referred to endocrinology. She will come back if she notices a change in the discharge or any new lumps or breast concerns. Regarding her breast pain, she is advised to completely decaffeinate her diet and have a proper bra fitting. If the pain becomes severe or persistent, she may try [employer] [place] [employer] 1000mg twice daily for 3-4 months. She was given a breast pain informational handout. Genetics referral made: No: Reason: n/a Chemoprevention discussion: N/A The patient is advised to exercise regularly, achieve/maintain ideal body weight, and to limit alcohol consumption to less than 7 drinks weekly for breast cancer risk reduction and overall health. Her imaging will be formally over-read by [facility] breast radiology team. Based on the results [...] which included preparing to see the patient, zjbp-bq-vijd patient care, completing clinical documentation, obtaining and/or [...] encounter. Phone: N/A Fax: Keli Strickland NP [address] [place] [address] documented in this encounter [facility] 08-07-2023 Note HNO ID: [id number] Author: FRANCHESCA MAN PA-C Service: ? Author Type: Physician Ditto Machine Operator Type: Progress Notes Filed: 08/07/2023 14:26 Note Text: MEDICAL BREAST PATIENT NAME: Sully Enriquez 08/07/2023 REFERRAL: She is self referred for an opinion regarding right breast biopsy. HISTORY of PRESENT ILLNESS: Sully Enriquez is a 33 year old year old premenopausal woman who presents to the [facility] [place] today for second opinion of right breast [...] related issues at [facility]) with care as follows: 06/25/23: Diagnostic bilateral DBT and US at [facility]): - RIGHT breast 8oclock 4-5cmfn hypoechoic 2cm [...] Lymph Nodes: The (more content not included)... [facility] 07-30-2023 Miscellaneous Notes Spoke with patient she is coming in because she states that she had a biopsy 06/2023 and was told it was fibroadenoma. Patient states that she feels like her provider is not giving her all the information and would like a second opinion. She was seen at [facility] in [place] I will reach out to them to retrieve any information and imaging needed for her appointment 08/07/23 with Franchesca FINNEGAN in the Breast Center [facility] contact number is [phone]. Kenia Peters MA documented in this encounter [facility] 07-25-2023 Miscellaneous Notes Called patient to discuss her upcoming appointment with Franchesca Man in the breast center. I left a message asking patient to call me back @[phone]. Kenia Peters MA documented in this encounter [facility] 05-07-2023 Evaluation note Encounter Date Diagnosis Assessment Notes Apr, Anxiety (ICD-10 - F41.9) [facility] Other 10-26-2023 Evaluation note* Encounter Date Diagnosis Assessment Notes Treatment Notes Treatment Clinical Notes Jan, Anxiety (ICD-10 - F41.9) [facility] Other 10-11-2023 Evaluation note* Encounter Date Diagnosis Assessment Notes Treatment Notes Treatment Clinical Notes Jan, BMI 37.0-37.9, adult (ICD-10 - Z68.37) [facility] - eRX sent. We did discuss that she needs to do a better job with the monitoring of her diet. If her weight loss does not improve, we must consider withholding medication. She voices agreement and understanding. [facility] Other 10-03-2023 Evaluation note* Encounter Date Diagnosis Assessment Notes Treatment Notes Treatment Clinical Notes Jan, Anxiety (ICD-10 - F41.9) [facility] Other 09-01-2023 Evaluation note* Encounter Date Diagnosis Assessment Notes Treatment Notes Treatment Clinical Notes Dec, Anxiety (ICD-10 - F41.9) [facility] Other 08-24-2023 Evaluation note* Encounter Date Diagnosis Assessment Notes Treatment Notes Treatment Clinical Notes Nov, BMI 37.0-37.9, adult (ICD-10 - Z68.37) [employer] [facility] Rx sent. No other change today. We will recheck in 1 month. [facility] Other 08-05-2023 Hospital Discharge instructions Patient Education [...] Follow these instructions at home: Medicines Take bisg-nka-dekknxe and prescription medicines only as told by your health care provider. Ask your health care provider if the medicine prescribed to you: ?Requires you to avoid driving or using machinery. ?Can cause constipation. You may need to take these actions to prevent or treat constipation: ?Drink enough fluid to keep your urine pale yellow. ?Take xbyr-doc-mvpzetu or prescription medicines. ?Eat foods that are [...] is important. Where to find more information [employer]: www.acog.org Office [...] provider. Document Revised: 11/08/2020 Document Reviewed: 11/08/2020 [employer] Patient Education 2022 [employer]. 11/23/2022 01:20:40 Laparoscopic Lysis of Abdominal Adhesions [...] including vitamins, herbs, eye drops, creams, and weex-pvw-ssccxtr medicines. Any problems you or family members [...] provider tells you to take them. Taking wulm-odx-aicsbrs medicines, vitamins, herbs, and supplements. General instructions [...] provider. Document Revised: 12/15/2020 Document Reviewed: 12/15/2020 [employer] Patient Education 2022 [employer]. 11/23/2022 01:20:40 Adhesions, Pcjv-ig-Pgkr Adhesions Adhesions are strings of tissue that [...] needed. Follow these instructions at home: Take cigp-orx-cdtvjux and prescription medicines only as told by [...] Treatment may include medicines and surgery. Take ewrd-ddd-xrsqwiw and prescription medicines only as told by your doctor. This information is not intended to replace advice given to you by your health care provider. Make sure you discuss any questions you have with your health care provider. Document Revised: 12/15/2020 Document Reviewed: 12/15/2020 [employer] Patient Education 2022 [employer]. 11/23/2022 01:20:40 Abdominal Pain, Adult, Ujid-fm-Eybn Abdominal Pain, Adult Many things can cause belly (abdominal) pain. Most times, belly pain is not dangerous. Many cases of belly pain can be watched and treated at home. Sometimes, though, belly pain is serious. Your doctor will try to find the cause of your belly pain. Follow these instructions at home: Medicines Take pnci-nkk-lhyaycf and prescription medicines only as told by [...] your belly pain for any changes. Take ivrl-zez-bmikfrp and prescription medicines only as told by [...] provider. Document Revised: 08/16/2019 Document Reviewed: 08/16/2019 [employer] Patient Education 2022 [employer]. Follow Up Care 11/22/2022 19:01:50 With:MARIO GLASGOW Address: [facility] [address], [facility] [address] [place] [address]- Business (1) When:11/26/2022 [facility]07-27-2023 Evaluation note* Encounter Date Diagnosis Assessment Notes Treatment Notes Treatment Clinical Notes Oct, BMI 37.0-37.9, adult (ICD-10 - Z68.37) [facility] [employer] - eRX sent. Call with any concerns. [facility] Other 06-27-2023 Evaluation note* Encounter Date Diagnosis [...] improvement. Sep, Anxiety (ICD-10 - F41.9) [facility] -eRx sent. No other change today. I continue to caution patient to use this medication very judiciously. She voices agreement and understanding. Sep, Seasonal allergies (ICD-10 - J30.2) E Rx sent. No other change today. We will see patient back for follow-up. [facility] Other 05-30-2023 Evaluation note* Encounter Date Diagnosis Assessment Notes Treatment Notes Treatment Clinical Notes August, BMI 39.0-39.9,adult (ICD-10 - Z68.39) [facility] - [facility]RX sent. Call with any concern. [facility] Other 05-30-2023 Evaluation note* Encounter Date Diagnosis Assessment Notes Treatment Notes Treatment Clinical Notes August, BMI 39.0-39.9,adult (ICD-10 - Z68.39) [facility] Other 12-28-2022 Evaluation note* Encounter Date Diagnosis [...] year, with out any concerns with anesthesia. [facility] Other 09-06-2022 Evaluation note* Encounter Date Diagnosis Assessment Notes Treatment Notes Treatment Clinical Notes Dec, BMI 36.0-36.9,adult (ICD-10 - Z68.36) [facility] Other 08-24-2022 Evaluation note* Encounter Date Diagnosis [...] third and final prescription of the Adipex. [facility] Other 08-03-2022 Evaluation note* Encounter Date Diagnosis Assessment Notes Treatment Notes Treatment Clinical Notes Nov, BMI 36.0-36.9,adult (ICD-10 - Z68.36) [facility] Other 07-05-2022 Evaluation note* Encounter Date Diagnosis Assessment Notes Treatment Notes Treatment Clinical Notes Oct, Conjunctivitis (ICD9-CM - 372.30) [facility] Other 06-24-2022 Evaluation note* Encounter Date Diagnosis Assessment Notes Treatment Notes Treatment Clinical Notes Sep, BMI 37.0-37.9, adult (ICD-10 - Z68.37) [facility] Rx sent. Lengthy discussion regarding side effects as well as possible outcomes of the medication. We will see her back in 1 month. Patient to call with any concerns. [facility] Other 06-24-2022 Evaluation note* Encounter Date Diagnosis Assessment Notes Treatment Notes Treatment Clinical Notes Sep, BMI 37.0-37.9, adult (ICD-10 - Z68.37) [facility] Other 06-13-2022 Evaluation note* Encounter Date Diagnosis Assessment Notes Treatment Notes Treatment Clinical Notes Sep, BMI 38.0-38.9,adult (ICD-10 - Z68.38) [facility] Other 06-09-2022 Evaluation note* Encounter Date Diagnosis [...] psychiatric diagnoses/as well as her seizure concerns. [facility] Other 04-27-2022 Hospital Discharge instructions Patient Education [...] fried and sweet foods. General instructions Take sdbs-gxg-qayapxh and prescription medicines only as told by [...] 02/01/2010 Document Revised: 07/29/2019 Document Reviewed: 04/23/2018 [employer] Patient Education 2019 [employer]. [facility] 02-09-2022 Evaluation note* Encounter Date Diagnosis [...] 2mg at that time of refill need. [facility] Other 01-18-2022 Evaluation note* Encounter Date Diagnosis Assessment Notes Treatment Notes Treatment Clinical Notes Apr, Dysuria (ICD-10 - R30.0) [facility] Other 01-12-2022 Evaluation note* Encounter Date Diagnosis [...] next week. She voices agreement and understanding. [facility] Other 11-17-2021 NoteHNO ID: [id number] Author: Rosalie Haile MD Service: ? Author Type: Physician Type: Progress Notes Filed: 03/08/2021 8:38 PM Note Text: [facility] - General Progress Note SULLY ENRIQUEZ : 1990 AGE: 31 SEX: F CSN: [id number] [facility]: [facility] LOCATION: [facility] ATTENDING PHYSICIAN: Rosalie Haile M.D. DATE [...] follow up. Rosalie Haile M.D. Internal Medicine ESPINOZA:[id number] NoteHNO ID: [id number] Author: Saravanan Yancey MD Service: Neurology General [...] MD DPhil Neurology Resident, PGY-4 March 07, 2021[id number] NoteHNO ID: [id number] Author: JULITO Lino Service: Care Management Author Type: Data Warehouse Architect Type: Care Mgt Initial Assessment Filed: 03/06/2021 4:04 PM Note Text: CARE MANAGEMENT: ASSESSMENT AND DISCHARGE PLAN SERVICE DATE: March 06, 2021 SERVICE TIME: 4:00 PM PRIMARY CARE PHYSICIAN: Keli Strickland NP ADMISSION STATUS: Inpatient Needs Prior to Discharge: None 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 Last discharge within 30 days: No Advance Directive: Current Advance Directive: None Art Supervisor Attempted to Assist with AD Completion: Yes [...] None Has the Patient Been in a Chcf Facility in the Past 30 days?: No SOCIAL: Living Arrangements: Home Lives With: Partner;Daughter;Son Financial Resources: Employed Primary Contact: Extended Emergency Contact Information Primary Emergency Contact: jamari strong [address]: [address] [place] [id number] [place] [address] Mobile Relation: Significant other Secondary Emergency Contact: [...] Completely I feel financially burdened by my zcx-sv-rprxtx expenses for my prescription medication:: 0 - Disagree Completely Risk Score: 0 Patient is categorized as: Low risk < 2 Are you interested in bedside delivery of your medications? No Is Patient Psychosocially Complex?: No ASSESSMENT AND PLAN: Medical Needs: Medical Needs: None Psychosocial Needs: Psychosocial Needs: Mental Health Diagnosis Mental Health Information: Coversion d/o, anxiety FREEDOM OF CHOICE EXPLAINED: [place] of Choice Given: No Reason Not Given: No placements necessary POTENTIAL TRANSITION PLANS Home Pt presents to ED s/p seizer, headache, CP, Hx diabetes (pt adamant she does not have DM), anxiety, epilepsy, conversion disorder. Independent of ADLS and iADLS, [facility] Jamari, 13 y/o dtr and 10 y/o son. Pt reports she is employed and drives. Does not utilize any DME, retirement or community resources. No skilled needs identified at this time. DC transportation will be provided by [facility] [phone]. SIGNATURE: JULITO Lino PATIENT NAME: Sully Enriquez DATE: March 06, 2021 TIME: 4:00 PM PAGER/CONTACT #: [phone] HospitalEvaluation + Plan note No data available for this section [facility] evaluation noteNo InformationNort Liter[employer] Other Evaluation noteNo assessment information available [facility] Work Phone: Evaluation note* Diagnosis Disorder of breast- Primary Unspecified breast disorder [facility] Diagnosis Mastodynia- Primary Fibrocystic breast changes of both breasts Family history of breast cancer Family history of malignant neoplasm of breast Dense breasts Inconclusive mammogram Nipple discharge Other sign and symptom in breast [facility]* Diagnosis Disorder of breast Unspecified breast disorder Fibrocystic breast changes of both breasts Family history of breast cancer Family history of malignant neoplasm of breast Mastodynia documented in this encounter [facility] note* Diagnosis Onset Date Resolution Status Fatigue noneactive BMI 39.0-39.9,adult noneacti ve [facility] Work Phone: Evaluation note* Diagnosis Fibrocystic breast changes of both breasts Family history of breast cancer Family history of malignant neoplasm of breast Mastodynia Dense breasts Inconclusive mammogram Nipple discharge Other sign and symptom in breast Mass of right breast, unspecified quadrant documented in this encounter [facility] note* Diagnosis Breast fibroadenoma, right- Primary Fibrocystic breast changes of both breasts Mastodynia Dense breasts Inconclusive mammogram documented in this encounter [facility] note* Diagnosis Onset Date Resolution Status Fatigue noneactive BMI 39.0-39.9,adult noneacti ve BMI 39.0-39.9,adult noneacti ve [facility] Work Phone: evaluation note* Diagnosis Onset Date Resolution Status Fatigue noneactive BMI 39.0-39.9,adult noneacti ve BMI 39.0-39.9,adult noneacti ve BMI 38.0-38.9,adult noneacti ve [facility] Work Phone: Evaluation note* Diagnosis Onset Date Resolution Status BMI 39.0-39.9,adult noneacti ve BMI 38.0-38.9,adult noneacti ve Lump of right breast acute UTI (urinary tract infection) acute BMI 38.0-38.9,adult noneacti ve [facility] Work Phone: Evaluation note* Diagnosis Breast fibroadenoma, right- Primary Preop testing Preoperative examination, unspecified Breast fibroadenoma, right documented in this encounter [facility] note* Diagnosis Breast fibroadenoma, right- Primary Breast fibroadenoma, right [facility] Pre-op evaluation- Primary Preoperative examination, unspecified Seizure (HCC) Other convulsions Difficult intravenous access Other specified conditions influencing health status Obesity (BMI 30-39.9) Obesity, unspecified POTS (postural orthostatic tachycardia syndrome) Tachycardia, unspecified Rash Rash and other nonspecific skin eruption Breast fibroadenoma, right * Assessment & Plan Note - Camila Russo PA-C - 01/06/2024 2:11 PM EDT Associated Problem(s): Rash Assessment: patient reports she has a rash of left breast that had a blister - the blister resolvedbut rash is still present, she reports it may have been caused by methylprednisolone she was put onfor back pain - not currently on this med now. Rash is not itchy or painful, feels there is a lump on the inside of the breast in this area She said she has let surgeon know at their visit 12/26/2023. I will also send a telephone encounter since rash and lump still present * Assessment & Plan Note - Camila Russo PA-C - 01/06/2024 2:09 PM EDT Associated Problem(s): POTS (postural orthostatic tachycardia syndrome) Assessment: has seen neuro and cardiology * Assessment & Plan Note - Camila Russo PA-C - 01/06/2024 2:09 PM EDT Associated Problem(s): Obesity (BMI 30-39.9) Assessment: on phentermine for weight loss Last dose ~01/01/2024 or 01/02/2024, patient unsure which date, but will be on hold for at least 5 days for surgery * Assessment & Plan Note - Camila Russo PA-C - 01/06/2024 2:05 PM EDT Associated Problem(s): Difficult intravenous access Assessment: has had difficulty with IV access, has needed US machine * Assessment & Plan Note - Camila Russo PA-C - 01/06/2024 1:56 PM EDT Associated Problem(s): Seizure (HCC) Assessment: hx seizures, stress and anxiety induced 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 No epilepsy per patient No treatment needed per patient Takes xanax PRN Saw neurology [facility] Diagnosis Pre-op evaluation- Primary Preoperative examination, unspecified Seizure (HCC) Other convulsions Difficult intravenous access Other specified conditions influencing health status Obesity (BMI 30-39.9) Obesity, unspecified POTS (postural orthostatic tachycardia syndrome) Tachycardia, unspecified Rash Rash and other nonspecific skin eruption Breast fibroadenoma, right [facility] Diagnosis Pre-op evaluation- Primary Preoperative examination, unspecified Seizure (HCC) Other convulsions Difficult intravenous access Other specified conditions influencing health status Obesity (BMI 30-39.9) Obesity, unspecified POTS (postural orthostatic tachycardia syndrome) Tachycardia, unspecified Rash Rash and other nonspecific skin eruption Breast fibroadenoma, right- Primary Fibrocystic breast changes of both breasts Post-operative state Other postprocedural status [facility] Diagnosis Pre-op evaluation- Primary Preoperative examination, unspecified Seizure (HCC) Other convulsions Difficult intravenous access Other specified conditions influencing health status Obesity (BMI 30-39.9) Obesity, unspecified POTS (postural orthostatic tachycardia syndrome) Tachycardia, unspecified Rash Rash and other nonspecific skin eruption Mass of right breast, unspecified quadrant- Primary Nipple discharge Other sign and symptom in breast Family history of breast cancer Family history of malignant neoplasm of breast Mass of right breast, unspecified quadrant Nipple discharge Other sign and symptom in breast [facility]* Diagnosis Pre-op evaluation- Primary Preoperative examination, unspecified Seizure (HCC) Other convulsions Difficult intravenous access Other specified conditions influencing health status Obesity (BMI 30-39.9) Obesity, unspecified POTS (postural orthostatic tachycardia syndrome) Tachycardia, unspecified Rash Rash and other nonspecific skin eruption Mass of right breast, unspecified quadrant Nipple discharge Other sign and symptom in breast [facility]* Diagnosis Pre-op evaluation- Primary Preoperative examination, unspecified Seizure (HCC) Other convulsions Difficult intravenous access Other specified conditions influencing health status Obesity (BMI 30-39.9) Obesity, unspecified POTS (postural orthostatic tachycardia syndrome) Tachycardia, unspecified Rash Rash and other nonspecific skin eruption Discharge from right nipple- Primary Obesity, Class II, BMI 35-39.9 Obesity, unspecified documented in this encounter [facility] note* Diagnosis Onset Date Resolution Status Lump of right breast acute UTI (urinary tract infection) acute BMI 38.0-38.9,adult noneacti ve Sinusitis noneactive [facility] Work Phone: Evaluation note* Diagnosis Pre-op evaluation- Primary Preoperative examination, unspecified Seizure (HCC) Other convulsions Difficult intravenous access Other specified conditions influencing health status Obesity (BMI 30-39.9) Obesity, unspecified POTS (postural orthostatic tachycardia syndrome) Tachycardia, unspecified Rash Rash and other nonspecific skin eruption Disorder of breast Unspecified breast disorder Mass of right breast, unspecified quadrant Nipple discharge Other sign and symptom in breast documented in this encounter [facility] note* Diagnosis Pre-op evaluation- Primary Preoperative examination, unspecified Seizure (HCC) Other convulsions Difficult intravenous access Other specified conditions influencing health status Obesity (BMI 30-39.9) Obesity, unspecified POTS (postural orthostatic tachycardia syndrome) Tachycardia, unspecified Rash Rash and other nonspecific skin eruption Mass of right breast, unspecified quadrant- Primary Nipple discharge Other sign and symptom in breast Family history of breast cancer Family history of malignant neoplasm of breast Fibrocystic breast changes of both breasts Disorder of breast Unspecified breast disorder Mass of right breast, unspecified quadrant Nipple discharge Other sign and symptom in breast documented in this encounter [facility] general Narrative - Reported* Type Description Date Medical History bipolar - 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 Surgical History nephrostomy tube right 2008 Surgical History tubal ligation 2011 Surgical History LEEP 2010 Surgical History oophorectomy, bilateral 2011 Surgical History kidney stone 2019 Hospitalization History bowel obstruction, 3 dif ferent times Hospitalization History Seizures 02/2021 [facility] Other History general Narrative - ReportedNortColdWatt Other Hispynl general Narrative - Reported* Type Description Date [...] dif ferent times Hospitalization History Seizures 02/2021 [facility] Other Hospital Discharge instructions Additional Instructions DISCHARGE [...] FOLLOW UP -[Please call the office at ([phone]) to make follow appointment before leaving the hospital]. -[2 Weeks] [ ][facility] Work Phone: Hospital Discharge instructions No data available for this section [facility] Pratik progress note No data available for this section [facility] Diagnostic Procedure Only (Routine) - Authorized Specialty Diagnoses / Procedures Referred By Nikolas guerrero Referred To Contact BR IMAGING Diagnoses Disorder of breast Procedures SAJI DIAGNOSTIC BILATERAL DIAGNOSTIC MAMMOGRAPHY COMPUTER-AIDED DETCJ BI Franchesca Man PA-C [address] [address] Br Imaging [address] [place] [address] Referral ID Status Reason Start Date Expiration Date Visits Requested Visits Authorized [id number] Authorized Auto-Generat ed Referral 08/06/2023 09/04/[address] [facility] for referral (narrative)* Diagnostic Procedure Only (Routine) - Closed Specialty Diagnoses / Procedures Referred By Nikolas guerrero Referred To Contact BR IMAGING Diagnoses Fibrocystic breast changes of both breasts Family history of breast cancer Mastodynia Procedures US BREAST LTD RIGHT US BREAST UNI REAL TIME WITH IMAGE LIMITED Franchesca Man PA-C [address] [address] Br Imaging [address] [place] [address] Referral ID Status Reason Start Date Expiration Date V isits Requested Visits Authorized [id number] Closed Auto-Generate d Referral 08/07/2023 04/20/[address] [facility] for referral (narrative)* Diagnostic Procedure Only (Routine) - Closed Specialty Diagnoses / Procedures Referred By Nikolas guerrero Referred To Contact BR IMAGING Diagnoses Fibrocystic breast changes of both breasts Family history of breast cancer Mastodynia Dense breasts Nipple discharge Mass of right breast, unspecified quadrant Procedures US BIOPSY BREAST RIGHT BX BREAST W/DEVICE 1ST LESION ULTRASOUND GUID Franchesca Man PA-C [address] [address] Br Imaging [address] [place] [address] Referral ID Status Reason Start Date Expiration Date V isits Requested Visits Authorized [id number] Closed Auto-Generate d Referral 08/11/2023 09/09/[address] [facility] for referral (narrative)* Diagnostic Procedure Only (Routine) - New Request Specialty Diagnoses / Procedures Referred By Contac t Referred To Contact BR IMAGING Diagnoses Breast fibroadenoma, right Procedures SAJI NDL LOC W SAJI GD RIGHT PERQ DEVICE PLACEMENT BREAST LOC 1ST LES W/GDNCE Tiffany, Adele Robins MD [address] [place] [address] Br Imaging [address] [place] [phone] Referral ID Status Reason Start Date Expiration Date Visits Requested Visits Authorized [id number] New Request Auto-Generat ed Referral 12/26/2023 01/24/[address] [facility] for referral (narrative)* Diagnostic Procedure Only (Routine) - Closed Specialty Diagnoses / Procedures Referred By Contac t Referred To Contact BR IMAGING Diagnoses Mass of right breast, unspecified quadrant Nipple discharge Procedures US BREAST LTD RIGHT US BREAST UNI REAL TIME WITH IMAGE LIMITED Anastasia Mon PA-C [address] [place] [address] Br Imaging [address] [place] [phone] Referral ID Status Reason Start Date Expiration Date V isits Requested Visits Authorized [id number] Closed Auto-Generate d Referral 01/29/2024 02/27/[address] [facility] for referral (narrative)* Diagnostic Procedure Only (Routine) - Closed Specialty Diagnoses / Procedures Referred By Contac t Referred To Contact BR IMAGING Diagnoses Mass of right breast, unspecified quadrant Nipple discharge Procedures US BREAST LTD RIGHT US BREAST UNI REAL TIME WITH IMAGE LIMITED Anastasia Mon PA-C [address] [place] [address] Br Imaging [address] [place] [address] Referral ID Status Reason Start Date Expiration Date V isits Requested Visits Authorized [id number] Closed Auto-Generate d Referral 03/12/2024 04/20/[address] [facility] for visit Narrative1 month Follow up, ER visit recently referrals to GI and urologistJackson [facility] Other Reason for visit Narrative* Diagnostic Procedure Only (Routine) - Closed Specialty Diagnoses / Procedures Referred By Contac t Referred To Contact BR IMAGING Diagnoses Breast fibroadenoma, right Procedures SAJI NDL LOC W SAJI GD RIGHT PERQ DEVICE PLACEMENT BREAST LOC 1ST LES W/GDTOMÁSE Adele Sutton MD [address] [place] [address] Br Imaging [address] [place] [phone] Referral ID Status Reason Start Date Expiration Date V isits Requested Visits Authorized [id number] Closed Auto-Generate d Referral 12/26/2023 01/24/[address] [facility] for visit Narrative* Diagnostic Procedure Only (Routine) - Closed Specialty Diagnoses / Procedures Referred By Contac t Referred To Contact BR IMAGING Diagnoses Mass of right breast, unspecified quadrant Nipple discharge Procedures US BREAST LTD RIGHT US BREAST UNI REAL TIME WITH IMAGE LIMITED Anastasia Mon PA-C [address] [place] [address] Br Imaging [address] [place] [address] Referral ID Status Reason Start Date Expiration Date V isits Requested Visits Authorized [id number] Closed Auto-Generate d Referral 01/29/2024 02/27/2025 1 1 [facility] Summary Purpose Family History No Family History Records Found Relationship Condition Age at Onset Recorded Date/T [...] Schizophrenia Unknown family member Unknown Advance Directives No Advanced Directives Records Found Advance Directive Response Recorded Date/ Time Advance [...] Fatigue BMI 39.0-39.9,adult BMI 39.0-39.9,adult BMI 38.0-38.9,adult Chief Complaint follow up 1 month follow up Reason for Visit BMI 39.0-39.9,adult BMI 38.0-38.9,adult Lump of right breast UTI (urinary tract infection) BMI 38.0-38.9,adult Chief Complaint follow up 1 month follow up Urinary tract infection Reason for Visit BMI 39.0-39.9,adult BMI 38.0-38.9,adult Lump of right breast UTI (urinary tract infection) BMI 38.0-38.9,adult Chief Complaint follow up Urinary tract infection adipex Reason for Visit Lump of right breast UTI (urinary tract infection) BMI 38.0-38.9,adult Sinusitis Reason for Referral Specialty Diagnoses / Procedures Referred By Nikolas guerrero Referred To Contact MR IMAGING Diagnoses Nipple discharge Procedures MRI BREAST WO/W IVCON BILATERAL MRI BREAST WITHOUT&WITH CONTRAST W/CAD BILATERAL Anastasia Mon PA-C [address] [place] [address] Mr Imaging [place] [address] Referral ID Status Reason Start Date Expiration Date Visits Requested Visits Authorized [id number] New Request Auto-Generat ed Referral 04/11/2025 1 1 Specialty Diagnoses / Procedures Referred By Nikolas guerrero Referred To Contact [facility] IMAGING Diagnoses Mass of right breast, unspecified quadrant Nipple discharge Procedures US BREAST LTD RIGHT US BREAST UNI REAL TIME WITH IMAGE LIMITED Anastasia Mon PA-C [address] [place] [phone] Br Imaging [address] [place] [address] Referral ID Status Reason Start Date Expiration Date V isits Requested Visits Authorized [id number] Closed Auto-Generate d Referral 03/12/2024 04/20/2024 1 1 Specialty Diagnoses / Procedures Referred By Nikolas guerrero Referred To Contact Diagnoses Family history of breast cancer Procedures CONSULT TO MEDICAL GENETICS - CANCER MEDICAL GENETICS COUNSELING EACH 30 MINUTES Anastasia Mon PA-C [address] [phone] [facility] [place] [address] [facility] [place] [address] Referral ID Status Reason Start Date Expiration Date Visits Requested Visits Authorized [id number] Authorized PCP Requested Referral Auto-Generate d Referral 01/29/2025 1 1 Specialty Diagnoses / Procedures Referred By Contac t Referred To Contact [facility] IMAGING Diagnoses Mass of right breast, unspecified quadrant Nipple discharge Procedures US BREAST LTD RIGHT US BREAST UNI REAL TIME WITH IMAGE LIMITED Anastasia Mon PA-C [address] [place] [address] Br Imaging [address] [place] [address] Referral ID Status Reason Start Date Expiration Date V isits Requested Visits Authorized [id number] Closed Auto-Generate d Referral 01/29/2024 02/27/2025 1 1 Specialty Diagnoses / Procedures Referred By Contac t Referred To Contact General Surgery Diagnoses Breast fibroadenoma, right Fibrocystic breast changes of both breasts Mastodynia Dense breasts Procedures CONSULT TO GENERAL SURGERY OFFICE/OUTPATIENT NEW HIGH MDM 60 MINUTES Franchesca Man PA-C [address] [place] [address] Referral ID Status Reason Start Date Expiration Date Visits Requested Visits Authorized [id number] Authorized PCP Requested Referral 09/12/2023 09/11/2024 1 1 Specialty Diagnoses / Procedures Referred By Contac t Referred To Contact Endocrinology Diagnoses Nipple discharge Procedures CONSULT TO ENDOCRINOLOGY OFFICE/OUTPATIENT NEW HIGH MDM 60 MINUTES Franchesca Man PA-C [address] [place] [address] Referral ID Status Reason Start Date Expiration Date Visits Requested Visits Authorized [id number] Authorized PCP Requested Referral 08/07/2023 08/06/2024 1 1 Specialty Diagnoses / Procedures Referred By Contac t Referred To Contact BR IMAGING Diagnoses Fibrocystic breast changes of both breasts Family history of breast cancer Mastodynia Procedures US BREAST LTD RIGHT US BREAST UNI REAL TIME WITH IMAGE LIMITED Franchesca Man PA-C [address] [place] [phone] Br Imaging [address] [place] [address] Referral ID Status Reason Start Date Expiration Date V isits Requested Visits Authorized [id number] Closed Auto-Generate d Referral 08/07/2023 04/20/2024 1 1 Reason Appt time Consult and treat abdominal pain - [facility] x 2 Diagnosis 1 Abdominal pain (R10. 9) Referral Organization [facility] Family Natalieemely jean pierre Patterson Referring Provider First Name Mario Referring Provider Last Name Pee Referring Provider Specialty Family Prac cody Referred Organization Unknown Facility Referred Provider Carlos Haq Referred Provider Specialty Surgery Referral Priority Routine General Notes Renetta Damico 2022 08:55:03 AM > Carlos Haq DO, phone [phone]. [facility] recommended Additional Source Comments INFORMATION SOURCE (unrecogn ized section and content) DATE CREATED AUTHOR 03/11/2021 [facility] DATE CREATED AUTHOR AUTHOR'S ORGANIZ ATION 08/15/2022 [facility] DATE CREATED AUTHOR AUTHOR'S ORGANIZ ATION 02/15/2023 [facility] DATE CREATED AUTHOR AUTHOR'S ORGANIZ ATION 10/09/2023 [facility] EPIC DATE CREATED AUTHOR AUTHOR'S ORGANIZ ATION 12/27/2023 [facility] DATE CREATED AUTHOR AUTHOR'S ORGANIZ ATION 2024 [facility] DATE CREATED AUTHOR AUTHOR'S ORGANIZ ATION 03/18/2024 [facility] REASON FOR VISIT (unrecogniz ed section and content) Reason Comments New Patient Pain in both breast, enlarged lymph node in Rt armpit. Establish care Reason Comments Radiology Mammogram Specialty Diagnoses / Procedures Referred By Arleneac t Referred To Contact BR IMAGING Diagnoses Disorder of breast Procedures SAJI DIAGNOSTIC BILATERAL DIAGNOSTIC MAMMOGRAPHY COMPUTER-AIDED DETCJ BI Franchesca Man PA-C [address] [place] [address] Br Imaging [address] [place] [address] Referral ID Status Reason Start Date Expiration Date V isits Requested Visits Authorized [id number] Closed Auto-Generate d Referral 08/06/2023 09/04/2024 1 1 Reason Comments Radiology Invasive Breast Procedure Specialty Diagnoses / Procedures Referred By Nikolas t Referred To Contact BR IMAGING Diagnoses Fibrocystic breast changes of both breasts Family history of breast cancer Mastodynia Dense breasts Nipple discharge Mass of right breast, unspecified quadrant Procedures US BIOPSY BREAST RIGHT BX BREAST W/DEVICE 1ST LESION ULTRASOUND GUID Franchesca Man PA-C [address] [place] [address] Br Imaging [address] [place], [place] [phone] Referral ID Status Reason Start Date Expiration Date V isits Requested Visits Authorized [id number] Closed Auto-Generate d Referral 08/11/2023 09/09/2024 1 1 Reason Comments Results Reason Comments New Patient Specialty Diagnoses / Procedures Referred By Nikolas t Referred To Contact General Surgery Diagnoses Breast fibroadenoma, right Fibrocystic breast changes of both breasts Mastodynia Dense breasts Procedures CONSULT TO GENERAL SURGERY OFFICE/OUTPATIENT NEW HIGH MDM 60 MINUTES Franchesca Man PA-C [address] [place] [address] Referral ID Status Reason Start Date Expiration Date V isits Requested Visits Authorized [id number] Closed PCP Requested Referral 09/12/2023 09/11/2024 1 1 Reason Comments Breast Localization Request Reason Comments Missed Appointment Reason Comments Appointment Reason Comments Patient Update Reason Comments Pre-Op Visit Reason Comments Breast Problem Reason Comments Post Op Reason Comments Follow Up Reason Comments Consult Specialty Diagnoses / Procedures Referred By Nikolas t Referred To Contact [facility] IMAG[facility] Diagnoses Disorder of breast Procedures SAJI DIAGNOSTIC BILATERAL DIAGNOSTIC MAMMOGRAPHY COMPUTER-AIDED DETCJ BI Anastasia Mon PA-C [address] [place] [address] Br Imaging [address] [place] [address] Referral ID Status Reason Start Date Expiration Date V isits Requested Visits Authorized [id number] Closed Auto-Generate d Referral 01/29/2024 02/27/2025 1 1 Care Teams (unrecognized sec tion and content) Team Status: Active Member Role Status Dates Mario Glasgow , Primary Care Provider Active Team Status: Active Member Role Status Dates Mario Glasgow , DO Primary Care Provider Active Start: December 17, 2023 Camille Guerrero MD Attending Provider Active St art: December 17, 2023 Team Status: Inactive Member Role Status Dates Mario Glasgow , DO Primary Care Provid er, Attending Provider Active Start: December 26, 2023 End: December 26, 2023 Team Status: Inactive Member Role Status Dates Mario Glasgow , DO Attending Provider Active S tart: December 26, 2023 End: December 26, 2023 Team Status: Active Member Role Status Dates Mario Glasgow , DO Attending Provider Active S tart: January 07, 2024 Team Status: Inactive Member Role Status Dates Mario Glasgow , DO Primary Care Provid er, Attending Provider Active Start: February 23, 2024 End: February 23, 2024 Team Status: Inactive Member Role Status Dates [...] Glasgow , DO Primary Care Provider Active Start: August 13, 2023 Shukri Wynne LPN Attending Provider Active St art: August 13, 2023 Team Status: Inactive Member Role Status Dates Mario Glasgow , DO Attending Provider Active Team Status: Inactive Member Role Status Dates Mario Glasgow , DO Primary Care Provider Active Jose Cade , DO Emergency Provider Active Team Status: Inactive Member Role Status Dates Mario Glasgow , DO Primary Care Provider Active Rell Garcia , DO Attending Provider Active Team Status: Inactive Member Role Status Dates Rell Garcia DO Attending Provider Active Team Status: Inactive [...] Provider Active St art: July 07, 2023 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 Specialty Start Date End Date Keli Strickland NP [address] [place] [address] PCP - General Family Medicine 10/19/16 Erin Chavez MD [address] [facility] [place] [address] Urology 01/01/23 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 Specialty Start Date End Date Keli Strickland NP [address] [place] [address] [place] [phone] PCP - General Family Medicine 10/19/16 Erin Chavez MD [address] [place] [address] Urology 01/01/23 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 Specialty Start Date End Date Keli Strickland NP [address] [place] [address] [place] [address] PCP - General Family Medicine 10/19/16 Erin Chavez MD [address] [place] [address] Urology 01/01/23 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 Specialty Start Date End Date Keli Strickland NP [address] [place] [address] PCP - General Family Medicine 10/19/16 Erin Chavez MD [address] [place] [address] Urology 01/01/23 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 Specialty Start Date End Date Keli Strickland NP [address] [place] [address] PCP - General Family Medicine 10/19/16 Erin Chavez MD [address] [place] [address] Urology 01/01/23 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 Specialty Start Date End Date Keli Strickland NP [address] [place] [address] PCP - General Family Medicine 10/19/16 Erin Chavez MD [address] [place] [address] Urology 01/01/23 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 Specialty Start Date End Date Keli Strickland NP [address] [place] [address] PCP - General Family Medicine 10/19/16 Erin Chavez MD [address] [place] [address] Urology 01/01/23 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 Specialty Start Date End Date Keli Strickland NP [address] [place] [address] PCP - General Family Medicine 10/19/16 Erin Chavez MD [address] [place] [address] Urology 01/01/23 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 Specialty Start Date End Date Keli Strickland NP [address] [place] [address] PCP - General Family Medicine 10/19/16 Erin Chavez MD [address] [place] [address] Urology 01/01/23 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 Specialty Start Date End Date Keli Strickland NP [address] [place] [address] PCP - General Family Medicine 10/19/16 Erin Chavez MD [address] [place] [address] Urology 01/01/23 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 Specialty Start Date End Date Keli Strickland NP [address] [place] [address] PCP - General Family Medicine 10/19/16 Erin Chavez MD [address] [place] [address] Urology 01/01/23 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 Specialty Start Date End Date Mario Glasgow DO [address] [address] PCP - General Family Medicine 12/30/23 Erin Chavez MD [address] [place] [address] Urology 01/01/23 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 Specialty Start Date End Date Mario Glasgow DO [address] [address] PCP - General Family Medicine 12/30/23 Erin Chavez MD [address] [place] [address] Urology 01/01/23 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 Specialty Start Date End Date Mario Glasgow DO [address] [address] PCP - General Family Medicine 12/30/23 Erin Chavez MD [address] [place] [address] Urology 01/01/23 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 Specialty Start Date End Date Mario Glasgow DO [address] [address] PCP - General Family Medicine 12/30/23 Erin Chavez MD [address] [place] [address] Urology 01/01/23 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 Specialty Start Date End Date Mario Glasgow DO [address] [address] PCP - General Family Medicine 12/30/23 Erin Chavez MD [address] [place] [address] Urology 01/01/23 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 Specialty Start Date End Date Mario Glasgow DO [address] [address] PCP - General Family Medicine 12/30/23 Erin Chavez MD [address] [place] [address] Urology 01/01/23 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 Specialty Start Date End Date Mario Glasgow DO [address] [address] PCP - General Family Medicine 12/30/23 Erin Chavez MD [address] [place] [address] Urology 01/01/23 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 Specialty Start Date End Date Mario Glasgow DO [address] [address] PCP - General Family Medicine 12/30/23 Erin Chavez MD [address] [place] [address] Urology 01/01/23 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 Specialty Start Date End Date Mario Glasgow DO [address] [address] PCP - General Family Medicine 12/30/23 Erin Chavez MD [address] [place] [address] Urology 01/01/23 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 Specialty Start Date End Date Mario Glasgow DO [address] [address] PCP - General Family Medicine 12/30/23 Erin Chavez MD [address] [place] [address] Urology 01/01/23 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 Specialty Start Date End Date Mario Glasgow DO [address] [address] PCP - General Family Medicine 12/30/23 Erin Chavez MD [address] [place] [address] Urology 01/01/23 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 Specialty Start Date End Date Mario Glasgow DO [address] [place] [address] PCP - General Family [facility] 12/30/23 Erin Chavez MD [address] [place] [address] Urology 01/01/23 Goals (unrecognized section and content) Goals may be documented in a n alternate section Source Comments (unrecognize d section and content) In the event this informatio n is protected by the Federal Confidentiality of Alcohol and Drug Abuse Patient Records regulations: The Federal rules restrict any use of the information to criminally investigate or prosecute any alcohol or drug abuse patient.[facility] the event this information is protected by the Federal Confidentiality of Alcohol and Drug Abuse Patient Records regulations: The Federal rules restrict any use of the information to criminally investigate or prosecute any alcohol or drug abuse patient.[facility] the event this information is protected by the Federal Confidentiality of Alcohol and Drug Abuse Patient Records regulations: The Federal rules restrict any use of the information to criminally investigate or prosecute any alcohol or drug abuse patient.[facility] the event this information is protected by the Federal Confidentiality of Alcohol and Drug Abuse Patient Records regulations: The Federal rules restrict any use of the information to criminally investigate or prosecute any alcohol or drug abuse patient.[facility] the event this information is protected by the Federal Confidentiality of Alcohol and Drug Abuse Patient Records regulations: The Federal rules restrict any use of the information to criminally investigate or prosecute any alcohol or drug abuse patient.[facility] the event this information is protected by the Federal Confidentiality of Alcohol and Drug Abuse Patient Records regulations: The Federal rules restrict any use of the information to criminally investigate or prosecute any alcohol or drug abuse patient.[facility] the event this information is protected by the Federal Confidentiality of Alcohol and Drug Abuse Patient Records regulations: The Federal rules restrict any use of the information to criminally investigate or prosecute any alcohol or drug abuse patient.[facility] the event this information is protected by the Federal Confidentiality of Alcohol and Drug Abuse Patient Records regulations: The Federal rules restrict any use of the information to criminally investigate or prosecute any alcohol or drug abuse patient.[facility] the event this information is protected by the Federal Confidentiality of Alcohol and Drug Abuse Patient Records regulations: The Federal rules restrict any use of the information to criminally investigate or prosecute any alcohol or drug abuse patient.[facility] the event this information is protected by the Federal Confidentiality of Alcohol and Drug Abuse Patient Records regulations: The Federal rules restrict any use of the information to criminally investigate or prosecute any alcohol or drug abuse patient.[facility] the event this information is protected by the Federal Confidentiality of Alcohol and Drug Abuse Patient Records regulations: The Federal rules restrict any use of the information to criminally investigate or prosecute any alcohol or drug abuse patient.[facility] the event this information is protected by the Federal Confidentiality of Alcohol and Drug Abuse Patient Records regulations: The Federal rules restrict any use of the information to criminally investigate or prosecute any alcohol or drug abuse patient.[facility] the event this information is protected by the Federal Confidentiality of Alcohol and Drug Abuse Patient Records regulations: The Federal rules restrict any use of the information to criminally investigate or prosecute any alcohol or drug abuse patient.[facility] the event this information is protected by the Federal Confidentiality of Alcohol and Drug Abuse Patient Records regulations: The Federal rules restrict any use of the information to criminally investigate or prosecute any alcohol or drug abuse patient.[facility] HospitalIn the event this information is protected by the Federal Confidentiality of Alcohol and Drug Abuse Patient Records regulations: The Federal rules restrict any use of the information to criminally investigate or prosecute any alcohol or drug abuse patient.[facility]In the event this information is protected by the Federal Confidentiality of Alcohol and Drug Abuse Patient Records regulations: The Federal rules restrict any use of the information to criminally investigate or prosecute any alcohol or drug abuse patient.[facility]In the event this information is protected by the Federal Confidentiality of Alcohol and Drug Abuse Patient Records regulations: The Federal rules restrict any use of the information to criminally investigate or prosecute any alcohol or drug abuse patient.[facility]In the event this information is protected by the Federal Confidentiality of Alcohol and Drug Abuse Patient Records regulations: The Federal rules restrict any use of the information to criminally investigate or prosecute any alcohol or drug abuse patient.[facility]In the event this information is protected by the Federal Confidentiality of Alcohol and Drug Abuse Patient Records regulations: The Federal rules restrict any use of the information to criminally investigate or prosecute any alcohol or drug abuse patient.[facility]In the event this information is protected by the Federal Confidentiality of Alcohol and Drug Abuse Patient Records regulations: The Federal rules restrict any use of the information to criminally investigate or prosecute any alcohol or drug abuse patient.[facility]In the event this information is protected by the Federal Confidentiality of Alcohol and Drug Abuse Patient Records regulations: The Federal rules restrict any use of the information to criminally investigate or prosecute any alcohol or drug abuse patient.[facility] HospitalIn the event this information is protected by the Federal Confidentiality of Alcohol and Drug Abuse Patient Records regulations: The Federal rules restrict any use of the information to criminally investigate or prosecute any alcohol or drug abuse patient.[facility] HospitalIn the event this information is protected by the Federal Confidentiality of Alcohol and Drug Abuse Patient Records regulations: The Federal rules restrict any use of the information to criminally investigate or prosecute any alcohol or drug abuse patient.[facility] HospitalIn the event this information is protected by the Federal Confidentiality of Alcohol and Drug Abuse Patient Records regulations: The Federal rules restrict any use of the information to criminally investigate or prosecute any alcohol or drug abuse patient.[facility] HospitalIn the event this information is protected by the Federal Confidentiality of Alcohol and Drug Abuse Patient Records regulations: The Federal rules restrict any use of the information to criminally investigate or prosecute any alcohol or drug abuse patient.[facility] HospitalIn the event this information is protected by the Federal Confidentiality of Alcohol and Drug Abuse Patient Records regulations: The Federal rules restrict any use of the information to criminally investigate or prosecute any alcohol or drug abuse patient.[facility] FOR RECORDS PERTAINING TO PATIENTS WHO [...] BE BASED ON THE PRIMARY CLINICAL RECORDS. [facility] [employer] [facility]. provides no warranty or guarantee of the accuracy or completeness of information in this document.
--- NOTE | 2024-03-21 19:25 | XR_ITS ---
The [address] [address] Patient Name: TICO ENRIQUEZ MRN: [id number] date: 1990 Sex: F Assigned Patient Location: ER Current Patient Location: ED.MAIN Accession/Order Number: [id number] Exam Date: 03/21/2024 19:30 Report Date: 03/21/2024 20:07 At the request of: JENIFER JACKSON Procedure: XR ankle LT min 3V EXAM: XR ankle LT min 3V HISTORY: pain distal fibula COMPARISON: 05/07/2023 and earlier. TECHNIQUE: AP lateral oblique view left ankle. FINDINGS: No definite fracture seen. Tip of the lateral malleolus is not well seen, patient unable to flex her foot for optimal visualization. Significant soft tissue swelling. Normal symmetric mortise. No joint effusion. XR/XR ankle LT min 3V IMPRESSION: No fracture or joint effusion. Distal fibula tip not well visualized on the oblique view is noted above Electronically authenticated by: JEN FERNANDEZ Date: 03/21/2024 20:07
--- NOTE | 2024-03-21 19:29 | ED.LOWEXI1 ---
HPI HPI - Extremity Injury (Lower) General Chief Complaint: Extremity Injury, Lower Stated Complaint: L ANKLE PAIN Time Seen by Provider: 03/21/24 19:17 Source: patient Mode of arrival: walk-in History of Present Illness HPI Narrative: 34-year-old female presents to the ER with concerns of left ankle pain. Patient states around noon today she was laying on her bed when her jumped across it and landed on her ankle. Patient reports feeling a pop she has continued pain and difficulty weightbearing on the lateral aspect of her ankle. She has previous history of ankle left ankle fracture and left toe fracture treated earlier this year by [facility]. Patient denies any head or neck injury. She denies any pain to her knee or carmona region. Patient took Tylenol at home prior to arrival and request only an ice pack here. Patient reports having crutches and boot at home from prior treatments. MD complaint: Reports ankle injury Onset (ago): hour(s) (7) Injury: Left: ankle Type of Injury: Reports inversion Place: Reports home Severity: moderate Relieving factors: Reports cold therapy and rest Exacerbating factors: Reports movement Context: Reports direct blow Associated symptoms: Reports snap/pop sensation and swelling Related Data Home Medications ?Medication ?Instructions ?Recorded ?Confirmed tizanidine 4 mg tablet 4 mg PO BEDTIME muscle spasticity 11/17/22 03/21/24 alprazolam 2 mg PO BID PRN anxiety 12/24/22 03/21/24 Allergies Allergy/AdvReac Type Severity Reaction Status Date / Time nitrofurantoin (From Allergy Severe itching Verified 03/21/24 19:21 Macrobid) azithromycin (From Zithromax) Allergy Unknown Unknown Verified 03/21/24 19:21 ciprofloxacin (From Cipro) Allergy Unknown Hives Verified 03/21/24 19:21 ketorolac (From Toradol) Allergy Unknown Unknown Verified 03/21/24 19:21 metoclopramide (From Reglan) Allergy Unknown Unknown Verified 03/21/24 19:21 Penicillins Allergy Unknown Unknown Verified 03/21/24 19:21 zolpidem (From Ambien) AdvReac agitation Verified 03/21/24 19:21 Opioid HPI Opioid Management Most Recent Pain and Opioid Data: Last Pain Scale 6 07/25/23 20:44 07/25/23 Review of Systems ROS Constitutional Denies: fever, chills or change in weight Eyes Denies: change in vision or blurry vision Ears, nose, mouth, and throat Denies: throat pain, neck pain or throat swelling Cardiovascular Denies: chest pain, palpitations or edema Respiratory Denies: shortness of breath, cough or wheezing Gastrointestinal Denies: abdominal pain, nausea or vomiting Genitourinary Denies: painful urination Musculoskeletal Reports: joint pain (left ankle); Denies: back pain, neck pain or extremity pain Integumentary/Breast Denies: rash or itching Neurological Denies: headache Psychiatric Denies: anxiety Hematologic/Lymphatic Denies: easy bruising PFSH PFSH Medical History (Updated 03/21/24 @ 20:09 by SIVAN Pedro) Kidney stones ?N20.0 - Calculus of kidney (ICD-10) POTS (postural orthostatic tachycardia syndrome) ?G90.A - Postural orthostatic tachycardia syndrome [POTS] (ICD-10) Migraines ?G43.909 - Migraine, unspecified, not intractable, without status migrainosus (ICD-10) Seizure ?R56.9 - Unspecified convulsions (ICD-10) History of anxiety ?Z86.59 - Personal history of other mental and behavioral disorders (ICD-10) History of depression ?Z86.59 - Personal history of other mental and behavioral disorders (ICD-10) History of seizure ?Z87.898 - Personal history of other specified conditions (ICD-10) Surgical History (Updated 01/22/23 @ 06:55 by Xochitl Weaver) History of colonoscopy ?Z98.890 - Other specified postprocedural states (ICD-10) History of nephrostomy History of bunionectomy of right great toe ?Z98.890 - Other specified postprocedural states (ICD-10) H/O LEEP ?Z98.890 - Other specified postprocedural states (ICD-10) S/P laparoscopy ?Z98.890 - Other specified postprocedural states (ICD-10) Hx of cystoscopy ?Z98.890 - Other specified postprocedural states (ICD-10) History of hysterectomy ?Z90.710 - Acquired absence of both cervix and uterus (ICD-10) History of tubal ligation ?Z98.51 - Tubal ligation status (ICD-10) Family History (Updated 01/14/23 @ 12:43 by Soraida Blount) Father Family history of COPD (chronic obstructive pulmonary disease) Family history of cancer Family history of myocardial infarction Social History (Updated 01/22/23 @ 06:57 by Xochitl Weaver) Within the past year, how often did you have a drink containing alcohol: monthly or less Smoking status: Never smoker Non-prescribed substance use: denies use Highest level of school completed/degree received: some college, no degree Little interest or pleasure in doing things: not at all Feeling down, depressed, or hopeless: not at all Exam Narrative Exam Narrative: Vital signs reviewed and nurse's notes. The patient is not hypoxic. General: Alert, no acute distress, patient resting comfortably Skin: warm, intact, no pallor noted Head: Normocephalic, atraumatic Eye: Normal conjunctiva, no exudates Respiratory: No acute distress, lungs CTA Musculoskeletal: No evidence of deformity to the left ankle. There is mild amount of swelling lateral posterior ankle. There is no ecchymosis. No erythema or warmth noted. DP and PT pulses are intact 2+. Normal sensation, normal capillary refill less than 2 seconds. There is no cyanosis or mottling noted. The patient has tenderness to distal fibula and ATFL, . The patient has negative anterior drawer with very gentle stress. The patient was able to flex and extend although with pain. Patient was able to extend leg off the cart without difficulty. No tenderness noted to the 5th MT, midfoot, knee or proximal fibular area. There is no pain with calcaneal squeeze, achilles tendon is intact and no defect is palpated. The patient has no pelvic instability. The patient has no shortening or rotation noted to the bilateral lower extremities. Neurological: alert and orient x4, normal sensory and motor observed. Psychiatric: Cooperative Constitutional Vital Signs, click to edit/add: Last Vital Signs Temp 98.6 F 03/21/24 19:17 Pulse 85 03/21/24 19:17 Resp 18 03/21/24 19:17 BP 102/84 03/21/24 19:17 Pulse Ox 98 03/21/24 19:17 O2 Del Method Room Air 03/21/24 19:17 Course Vital Signs Vital signs: Vital Signs Temperature 98.6 F 03/21/24 19:17 Pulse Rate 85 03/21/24 19:17 Respiratory Rate 18 03/21/24 19:17 Blood Pressure 102/84 03/21/24 19:17 Pulse Oximetry 98 03/21/24 19:17 Oxygen Delivery Method Room Air 03/21/24 19:17 Temperature 98.6 F 03/21/24 19:17 Pulse Rate 85 03/21/24 19:17 Respiratory Rate 18 03/21/24 19:17 Blood Pressure 102/84 03/21/24 19:17 Pulse Oximetry 98 03/21/24 19:17 Oxygen Delivery Method Room Air 03/21/24 19:17 MDM - Extremity Injury (Lower) MDM Narrative Medical decision making narrative: Bony toPatient agreeable to ice pack, declined the need for any additional pain medicine. Requesting x-ray at the bedside. Bony tenderness distal fibula on exam x-ray performed. Preliminary review of the left ankle x-ray with no acute fracture, previous changes appear stable compared to prior x-ray on file noted for a distal tip fibula fracture. Patient recommended to use her crutches to be nonweightbearing until pain improves, she can contact her dedicated owner operator for follow-up for ongoing treatment. Patient has a cam boot at home and may also use this for support The patient is to followup with primary care physician in next 2-3 days or to return to the emergency department should any of the signs or symptoms worsen or new symptoms develop. Patient had questions answered. The patient agrees with the following Diagnosis and Treatment plan and the patient will be discharged home. Discharge Plan Discharge Chief Complaint: Extremity Injury, Lower Clinical Impression: Acute left ankle pain, Left ankle sprain Patient Disposition: Home, Self-Care Time of Disposition Decision: 20:08 Condition: Good Prescriptions / Home Meds: No Action tizanidine 4 mg tablet 4 mg PO BEDTIME alprazolam [Xanax] 2 mg PO BID PRN (Reason: anxiety) Print Language: Macanese Instructions: Ankle Sprain (ED) Additional Instructions: Recommend continue use of crutches and cam boot at home, may use ASO if needed for support when coming out of cam boot. Discussed gradual return to weightbearing as pain subsides with follow-up to podiatry Referrals: Conrado Chris DPM [Physician] - As soon as possible MARIO GUAMAN [Primary Care Provider] - 1 week
== END 2024-03-21 20:21 | disposition home or self-care (01) ==
PROVIDERS: Emergency Provider Student in an Organized Health Care Education/Training Program; PCP Family Medicine
DX: S93.402A Sprain of unspecified ligament of left ankle, initial encounter (principal); M25.572 Pain in left ankle and joints of left foot; Z90.710 Acquired absence of both cervix and uterus; Z98.51 Tubal ligation status; W50.0XXA Accidental hit or strike by another person, initial encounter
CPT/HCPCS: 73610; 99283

== ENCOUNTER 2024-05-02 22:05 | Emergency (ER) | payer OTHER, SELFPAY ==
[2024-05-02 22:15] VITALS: BP 117/84; PULSE 83; TEMP 36.6; O2SAT 98; BMI 38.3
--- OUTSIDE RECORDS SUMMARY | 2024-05-02 22:15 | XMS_ITS | CCD ---
Author Organization [facility] Care Team Providers Care Fundraising Specialist Name Role Phone MARIO GLASGOW Primary Care [...] CAMILLE GUERRERO Attending Unavailable ROSAURA .SIVAN Consulting Unavailabl e CAMILLE GUERRERO Consulting Unavailable PEE, DR MARIO Cullen Primary Care Unavailable SUKHDEV, CAMILLE Admitting Unavailable CAMILLE GUERRERO Attending Unavailable KASHIF GUERREROYL Consulting Unavailable ROC ARNOLD Consulting Unavailable PEE, [...] CAMILLE GUERRERO Attending Unavailable SIVAN DORSEY Consulting UnavailCAMILLE De Luna Consulting Unavailable LIZZIE YU Consulting Unavailable Erin Chavez Attending Unavailable DO Sonam Montoya Attending Unavailable Pee, DO Mario M. Primary Care Provider KIKE Alvarez Emergency Provider Pee, DO Mario M. Primary Care Provider KIKE Alvarez Emergency Provider Ishtz, DO Lucero Attending Provider Em LASSITER, Keli Cervantes Primary Care Provider [phone] Erin Chavez MD Unavailable Em LASSITER, Keli Cervantes Primary Care Provider [phone] RELL GARCIA Attending Unavailable RELL GARCIA Referring Unavailable RELL GARCIA Referring Unavailable ITZKOWITZ, LUECRO H Attending Unavailable RELL GARCIA Referring Unavailable ITZKOWITZ, LUCERO H Attending Unavailable PEE, MARIO Referring Unavailable ITZKOWITZ, LUCERO H Attending Unavailable VASU HILTON Attending Unavailable CAMILLE GUERRERO Referring Unavailable ANASTASIA HILTON Attending Unavailable ANASTASIA HILTON Referring Unavailable Pee, DO Mario Morton Attending Provider Mario Glasgow DO Primary Care Provider [phone] Bhanu Alvarez Admitting Unavailable hBanu Alvarez Attending Unavailable Pee, Mario MHernandez Primary Care Unavailable Itzkowitz, Lucero Attending Unavailable Pee, Mario M. Primary Care Unavailable Itzkowitz, Lucero Admitting Unavailable Pee, Mario MHernandez Admitting Unavailable Pee, Mario M. Attending Unavailable Pee, DO Mario MHernandez Attending Provider FRANCHESCA MAN Referring Unavailable KELI STRICKLAND Primary Care Unavailable MARIO GLASGOW Primary Care Unavailable TIFFANY, ADELE ROBINS Referring Unavailabl e CHICHURA, ADELE RBOINS Admitting Unavailabl e CHICHURA, ADELE ROBINS Attending Unavailabl e SPETTELKELI Primary Care Unavailable PEE, [facility] Primary Care Unavailable CHICHU, ADELE ROBINS Referring Unavailabl e PEE, [facility] Primary Care Unavailable CHICHURA, ADELE ROBINS Referring Unavailabl e PEE, [facility] Primary Care Unavailable CHICHURA, ADELE ROBINS Referring Unavailabl e GREENHOUSE, FRANCHESCA Arenas Referring Unavailable CHICHURA, ADELE ROBINS Attending Unavailabl e SPETTEL, KELI Cervantes Primary Care Unavailable PEE, MARIO VELAZQUEZ Primary Care Unavailable SANCHEZ, ANASTASIA Attending Unavailable SANCHEZ, ANASTASIA Attending Unavailable PEE, MARIO CAROLINE Primary Care Unavailable SANCHEZ, ANASTASIA Referring Unavailable PEE, MARIO CAROLINE Primary Care Unavailable PEE, [facility] Primary Care Unavailable DEVAUGHN FITCH Attending Garcia SANCHEZ, ANASTASIA Attending Unavailable PEE, MARIO CAROLINE Primary Care Unavailable LAURA, ANASTASIA Referring Unavailable PEE, MARIO CAROLINE Primary Care Unavailable SPETTFRANCINE, KELI Cervantes Primary Care Unavailable GREENHOUSE, FRANCHESCA Arenas Attending Unavailable GREENHOUSE, FRANCHESCA Arenas Referring Unavailable SPETTEL, KELI Cervantes Primary Care Unavailable Allergies Allergy Classification Reported Allergen(s) Allergy Type Date of Onset Reaction(s) Facility (20 sources) Azithromycin; Translations: [azithromycin] Drug Allergy 03-06-[address] [facility] [employer] Other (4 sources) cefTRIAXone; Translations: [ceftriaxone] Drug Allergy Mean (qualifier value) [facility] (20 sources) Ciprofloxacin; Translations: [ciprofloxacin] Drug Allergy 03-06-20 Unknown [employer] Other (20 sources) Dicyclomine; Translations: [dicyclomine] Drug Allergy 03-06-20 Unknown [facility] (20 sources) Ketorolac; Translations: [ketorolac] Drug Allergy 03-06-[address] [facility] [employer] Other Comment on above: patients it makes he r mean (20 sources) Metoclopramide; Translations: [metoclopramide] Drug Allergy 03-06-20 21 Unknown [employer] Other Comment on above: diarrhea (20 sources) Morphine; Translations: [morphine] Drug Allergy 06-03-19 24 Hives, Hives-IV [facility] Other Comment on above: causes hives (20 sources) NITROFURANTOIN, MACROCRYSTALS / Nitrofurantoin, Monohydrate; Translations: [nitrofurantoin] Drug Allergy Itching, Unknown [facility] Other (20 sources) Penicillin; Translations: [penicillin] Drug Allergy Unknown (qualifier value) [facility] [employer] Other (4 sources) zolpidem; Translations: [zolpidem] Drug Allergy Agitation [facility] (20 sources) diphenhydrAMINE Drug Allergy IV [facility] [employer] Other (20 sources) LORazepam; Translations: [LORAZEPAM] Drug Allergy 03-06-20 21 [facility] Comment on above: patient states it ma kes her violent (20 sources) Penicillin V Drug Allergy Unknown [employer] Other (10 sources) diphenhydrAMINE Drug Allergy IV myinfoQes [facility] [employer] Other (20 sources) DULoxetine Drug Allergy 06-03-19 24 worsen depression [facility] (20 sources) Nitrofurantoin; Translations: [nitrofurantoin] Drug Allergy 03-06-20 21 Unknown [facility] (20 sources) Penicillins; Translations: [Penicillins] Allergy to substance 09-17-19 13 [facility] (1 source) Azithromycin Drug Allergy 09-17-19 13 [facility] (1 source) Ciprofloxacin Drug Allergy 09-17-19 13 [facility] (1 source) Dicyclomine Drug Allergy 07-20-19 15 [facility] (1 source) Iothalamate Drug Allergy 09-17-19 13 [facility] (1 source) Ketorolac Drug Allergy 03-11-20 13 [facility] (1 source) LORazepam Drug Allergy 09-10-19 16 [facility] (1 source) Nitrofurantoin Drug Allergy 09-17-19 13 [facility] (1 source) LORazepam; Translations: [Ativan] Drug Allergy [facility] (17 sources) methylPREDNISolone ; Translations: [methylprednisolon e] Drug Allergy 12-26-19 Other: See Comments [facility] (17 sources) predniSONE; Translations: [PREDNISONE] Drug Allergy 12-26-19 Intolerance [facility] (1 source) Metoclopramide; Translations: [METOCLOPRAMIDE HCL] Drug Allergy 12-17-19 [facility] (1 source) NITROFURANTOIN MONOHYD/M-CRYST; Translations: [NITROFURANTOIN MONOHYD/M-CRYST] Propensity to adverse reactions to drug (disorder) 12-17-19 [facility] (1 source) Azithromycin Drug Allergy 10-08-19 [facility] (1 source) Ciprofloxacin Drug Allergy 10-08-19 [facility] (1 source) Dicyclomine Drug Allergy 10-08-19 [facility] (1 source) DULoxetine Drug Allergy 10-08-19 [facility] (1 source) Ketorolac Drug Allergy 10-08-19 [facility] (1 source) LORazepam Drug Allergy 10-08-19 [facility] (1 source) Metoclopramide Drug Allergy 10-08-19 [facility] (1 source) Morphine Drug Allergy 06-03-19 [facility] Rep[facility] Medications Current Medications Medication Drug Class(es) Dates Sig (Normalized) Sig (Original) acetaminophen 325 mg oral tablet (8 sources) Start: 01-08-2024 take 2 tablets by mouth every six hours as needed acetaminophen (TYLENOL) 325 mg tablet Take 2 tablets by mouth every 6 hours as needed (for pain.). 20 tablet 01/08/2024 Active Acetaminophen / HYDROcodone (14 sources) Opioid Agonist Start: 05-16-2021 [place] 5/325 Tab Oral, q6hr, Refill(s) 0 Start [...] 90 tab(s), Refills(s) 3, Bladder problems, Pharmacy: [facility]/pharmacy #[id number], 165, cm, 05/18/21 11:56:00 EST, Height/Length Dosing, 100, kg, 05/16/21 9:54:00 EST, Weight Dosing Start Date: 05/21/21 Status: Ordered montelukast 10 mg oral tablet (20 sources) Leukotriene Receptor Antagonist Start: 07-07-19 take 1 tablet by mouth once daily Montelukast 10 mg tablet Active 10 MG PO Daily July 06, [...] 01/09/2024 Active Start: 06-03-2023 End: 08-27-2023 take 1 tablet by mouth four times daily as needed for nausea and vomiting Ondansetron 4 mg tablet,disintegrating Discontinued 4 MG PO Four times daily as needed for nausea and vomiting June 03, 2023 12:00am August 27, 2023 3:26pm Start: 05-02-2022 End: 08-27-2023 take 1 tablet by mouth every six hours Ondansetron 4 mg Tablet,Disintegrating Discontinued 4 MG PO Q6H May 02, 2022 12:00am August 27, 2023 3:26pm Start: 01-29-2021 End: 06-03-2023 Ondansetron Hcl (Zofran) 4 m g tablet Discontinued 4 MG PO every 6 to 8 hours as needed for nausea and vomiting January 28, 2021 11:00pm June 03, 2023 1:33pm Start: 08-21-2017 End: 08-24-2017 take 1 tablet by mouth every eight hours as needed for nausea Ondansetron (Zofran Odt) 8 mg tablet,disintegrating Discontinued 8 MG PO Q8H as needed for nausea 5 August 20, 2017 11:00pm August 22, 2017 11:00pm August 23, 2017 11:01pm Start: 03-14-2017 End: 06-04-2017 take 1 tablet by mouth every eight hours as needed for nausea Ondansetron (Zofran Odt) 4 mg tablet,disintegrating Discontinued 4 MG PO Q8H as needed for nausea March 14, 2017 12:00am June 04, 2017 [...] 5 days. 10 tablet 01/09/2024 01/14/2024 Active sulfacetamide sodium 100 mg/ml ophthalmic solution (2 sources) Sulfonamide Antibacterial Start: 11-28-2010 take 1 drop(s) into the eye(s) every six hours Bleph-10 10 % 1 drop into affected eye Ophthalmic every 6 hrs for 5 days Nov, Active tiZANidine 4 mg oral tablet (20 sources) Central alpha-2 Adrenergic Agonist Start: 12-19-2023 End: 02-23-2024 take 1 tablet by mouth every eight hours as needed Tizanidine 4 mg tablet Active 4 MG PO Every 8 hours as needed for muscle spasticity 90 February 22 2024 2:48pm Start: 06-30-2023 End: 12-19-2023 take 1 tablet by mouth every eight hours as needed Tizanidine 4 mg tablet Discontinued 0 .ROUTE .COMPLEX August 27, 2023 3:48pm December 19, 2023 8:43am TAKE 1 TABLET BY MOUTH EVERY 8 HOURS NEEDED FOR BACK SPAMS Start: 06-30-2023 End: 06-30-2023 take 1 tablet by mouth three times daily as needed Tizanidine 4 mg tablet Discontinued 4 MG PO Three times daily as needed for muscle spasticity June 29, 2023 11:00pm June 30, 2023 12:00pm Start: 06-03-2023 End: 06-03-2023 take 1 tablet by mouth every eight hours as needed for muscle spasms Tizanidine 4 mg tablet Discontinued 4 MG PO Every 8 hours as needed for back spasms June 03, 2023 11:53am June 03, 2023 1:33pm Start: 05-16-2021 Zanaflex Oral, Refills(s) 0 Start Date: 05/16/21 Status: Ordered Start: 04-25-2021 End: 06-03-2023 take 1 tablet by mouth once daily at bedtime Tizanidine 4 mg tablet Discontinued 4 MG PO Daily at bedtime [...] pain, # 12 tab(s), Refills(s) 0, Pharmacy: [facility]/pharmacy #[id number], 165, cm, 11/22/22 19:18:00 EDT, Height/Length Dosing, 103, kg, 11/22/22 19:18:00 EDT, Weight Dosing Start Date: 11/23/22 Status: Ordered Start: 05-02-2022 End: 06-03-2023 take 1 tablet by mouth every four hours as needed for pain Tramadol 50 mg Tablet Discontinued 50 MG PO Q4H as needed for Pain scale 1 - 4 07 11May 02, 2022 12:00am June 03, 2023 1:33pm [...] DNA Polymerase Inhibitor Start: 04-10-2022 End: 08-22-2023 Valacyclovir 1 gram tablet Active 1000 MG PO Twice daily as needed for Cold Sores 07 02August 22, 2023 11:00am Start: 04-10-2022 End: 08-22-2023 take 1000 mg [...] mg / caffeine 40 mg oral capsule (9 sources) Barbiturate, Central Nervous System Stimulant, Methylxanthine Start: 06-03-2023 End: 08-27-2023 take 1 capsule by mouth every six hours as needed for pain Butalbital-Acetam inophen-Caff (Fioricet) 50-300-40 mg capsule Discontinued 1 CAP PO Q6H as needed for pain 03 23June 03, 2023 12:00am August 27, 2023 3:26pm acetaminophen 325 mg / oxyCODONE hydrochloride 5 mg oral tablet (20 sources) Opioid Agonist Start: 09-03-2017 End: 09-07-2017 take 1 tablet by mouth every four to six hours as needed for pain Oxycodone-Acetami nophen 5-325 mg tablet Discontinued 1 TAB PO EVERY 4-6 HOURS as needed for pain September 03, 2017 September 05, 2017 11:00pm September 06, 2017 11:02pm Start: 08-21-2017 End: 11-21-2017 take 2 tablets by mouth every four hours as needed for pain Oxycodone-Acetaminophen (Percocet) 5-325 mg tablet Discontinued 2 TAB PO Q4H as needed for pain August 21, 2017 November 21, 2017 6:33pm take 1 tablet by karl th every six hours Percocet 5-325 MG 1 tablet as needed Orally every 6 hrs Not-Taking ALPRAZolam 2 mg oral tablet (20 sources) Benzodiazepine Start: 06-06-2023 End: 03-29-2024 take 1 tablet by mouth twice daily as needed for anxiety Alprazolam 2 mg tablet Discontinued 2 MG PO Twice daily as needed for anxiety 60 July 07, 2023 1:20pm August 13, [...] Start: 04-11-2021 take 1 tablet by karl th every twelve hours Xanax 1 MG 1 [...] take 2 tablets by mouth twice daily as needed for anxiety Alprazolam (Xanax) 1 mg Tablet Discontinued 2 MG PO Twice daily as needed for Anxiety March 14, 2017 12:00am June 06, 2023 10:26am Comment on above: Take 1 mg by mouth t wice daily as needed. ARIPiprazole 2 mg oral tablet (14 sources) Atypical Antipsychotic Start: End: Aripiprazole (Abilify) 2 mg Tablet Discontinued TABLET March 14, 2017 12:00am June 04, 2017 1:59am cephalexin 500 mg oral capsule (14 sources) Cephalosporin Antibacterial Start: End: take 1 capsule by mouth four times daily Cephalexin (Keflex) 500 mg capsule Discontinued 500 MG PO Four times daily 40 September 07, 2017 11:00pm November 21, 2017 6:33pm cyclobenzaprine hydrochloride 10 mg oral tablet (14 sources) Muscle Relaxant Start: End: take 1 tablet by mouth three times daily as needed for pain Cyclobenzaprine 10 mg tablet Discontinued 10 MG PO Three times daily as needed for PAIN/SPASM March 14, 2017 12:00am June 04, 2017 2:00am doxycycline hyclate 100 mg oral capsule (5 sources) Tetracycline-class Drug Start: End: take 1 capsule by mouth twice daily Doxycycline Hyclate 100 mg capsule Discontinued 100 MG PO Twice daily 07 02February 23, 2024 12:00am April 26, 2024 2:37pm Start: 06-21-2021 take 1 tablet by karl th once daily doxycycline hyclate 100 mg Tab 100 mg = 1 tab(s), Oral, BID, Take 1 tablet the day prior to scheduled procedure, take 2nd tablet the day of procedure, # 2 tab(s), Refills(s) 0, Pharmacy: [facility]/pharmacy #[id number], 165, cm, 05/18/21 11:56:00 EST, Height/Length Dosing, 100, kg, 05/16/21 9:5... Start Date: 06/21/21 Status: Ordered ergocalciferol 1.25 mg oral capsule (20 sources) Provitamin D2 Compound Start: 07-17-2020 take 1 capsule by mouth every week Vitamin D (Ergocalciferol) 1.25 MG (38472 UT) 1 capsule Orally weekly for 30 day(s) Jun, Not-Taking gabapentin 100 mg oral capsule (6 sources) Anti-epileptic Agent Start: 01-08-2024 End: 02-17-2024 take 1 capsule by mouth once daily at bedtime gabapentin (NEURONTIN) 100 mg capsule Take 1 capsule by mouth daily at bedtime for 5 days. 5 capsule 01/08/2024 02/17/2024 Discontinued (Discontinued by Patient) ibuprofen 600 mg oral tablet (20 sources) Nonsteroidal Anti-inflammatory Drug Start: 01-08-2024 End: 02-17-2024 take 1 tablet by mouth every eight hours as needed ibuprofen (MOTRIN) 600 mg tablet Take 1 tablet by mouth every 8 hours as needed for pain. 15 tablet 01/08/2024 02/17/2024 Discontinued (Discontinued by Patient) Start: 03-14-2017 End: 06-04-2017 take 1 tablet by mouth three times daily as needed for pain Ibuprofen 800 mg tablet Discontinued 800 MG PO Three times daily as needed for pain March 14, 2017 12:00am June 04, 2017 [...] 03/12/2024 03/13/2024 lamoTRIgine 25 mg oral tablet (14 sources) Mood Stabilizer, Anti-epilepti c Agent Start: 06-12-2017 End: 11-21-2017 take 4 tablets by mouth twice daily Lamotrigine 25 mg tablet Discontinued 100 MG PO Twice daily June 12, 2017 12:00am November 21, 2017 6:33pm Start: 06-12-2017 End: 11-21-2017 take 100 mg by mouth twice daily Lamotrigine Discontinued 100 MG PO Twice daily June 12, 2017 12:00am November 21, 2017 6:33pm levothyroxine sodium 0.075 mg oral tablet (14 sources) l-Thyroxine Start: 12-22-2018 End: 04-25-2021 take 1 tablet by mouth once daily Levothyroxine 75 mcg tablet Discontinued 75 MCG PO Daily December 21, [...] sources) Biguanide Start: 06-24-2018 End: 12-22-2018 Metformin 500 mg tablet Discontinued TABLET June 24, 2018 12:00am December 22, 2018 3:27pm Start: 06-24-2018 End: 12-22-2018 Metformin Discontinued TABLE T June 24, 2018 12:00am December 22, 2018 3:27pm Start: 09-03-2017 End: 11-21-2017 Metformin 500 mg tablet Disc ontinued 250 MG PO Twice daily September 02, 2017 11:00pm November 21, 2017 6:33pm Start: 09-03-2017 End: 11-21-2017 take 250 mg by mouth twice daily Metformin Discontinued 250 MG PO Twice daily September 02, 2017 11:00pm November 21, 2017 6:33pm Start: 03-14-2017 End: 09-03-2017 Metformin 1,000 mg Tablet Discontinued 250 MG PO Twice daily March 14, 2017 12:00am September 03, 2017 11:54am Start: 03-14-2017 End: 09-03-2017 take 250 mg by mouth twice daily Metformin Discontinued 250 MG PO Twice daily March 14, 2017 12:00am September 03, 2017 11:54am naproxen 500 mg oral tablet (14 sources) Nonsteroidal Anti-inflammatory Drug Start: 12-04-2019 End: 04-25-2021 take 1 tablet by mouth every twelve hours as needed for pain Naproxen 500 mg tablet Discontinued 500 MG PO Q12H as needed for pain December 03, 2019 11:00pm April 25, 2021 1:41pm phenazopyridine hydrochloride 200 mg oral tablet (14 sources) Start: 09-08-2017 End: 11-21-2017 take 1 tablet by mouth three times daily at mealtime Phenazopyridine 200 mg tablet Discontinued 200 MG PO Three times daily as needed for urinary retention 01 21September 07, 2017 11:00pm November 21, 2017 6:33pm administer with a full glass of water after each meal phentermine hydrochloride 37.5 mg oral tablet (20 sources) Sympathomimetic Amine Anorectic Start: 09-17-2022 End: 02-23-2024 take 1 tablet by mouth once daily Phentermine 37.5 mg tablet Discontinued 37.5 MG PO Daily December 26, 2023 9:46am February 23, 2024 3:03pm Start: 12-25-2021 take 1 tablet by karl [...] 20, 2017 11:00pm December 22, 2018 3:27pm sulfamethoxazole 800 mg / trimethoprim 160 mg oral tablet (18 sources) Dihydrofolate Reductase Inhibitor Antibacterial, Sulfonamide Antimicrobial Start: 12-26-2023 End: 02-23-2024 take 1 tablet by mouth every twelve hours Sulfamethoxazole-Trimethoprim (Bactrim Ds) 800-160 mg tablet Discontinued 1 TAB PO Every 12 hours 01 11December 25, 2023 11:00pm February 23, 2024 2:47pm Start: 01-29-2021 End: 04-25-2021 take 1 tablet by mouth twice daily Sulfamethoxazole-Trimethoprim (Bactrim D s) 800-160 mg tablet Discontinued 1 TAB PO Twice daily January 28, 2021 11:00pm April 25, 2021 1:41pm tamsulosin hydrochloride 0.4 mg oral capsule (14 sources) alpha-Adrenergic Jimmie Start: 09-08-2017 End: 11-21-2017 [...] 2021 1:41pm Start: 06-04-2017 End: 12-22-2018 take 1 capsule by mouth once daily at bedtime Temazepam 30 mg capsule Discontinued 30 MG PO Daily at bedtime June 04, 2017 12:00am December 22, 2018 3:27pm topiramate 25 mg oral tablet (14 sources) Start: 01-27-2019 End: 04-25-2021 take 1 mg by mouth twice daily Topiramate 25 mg tablet Discontinued 1 MG PO Twice daily January 26, 2019 11:00pm April 25, 2021 1:41pm Start: 01-27-2019 End: 04-25-2021 take 1 mg [...] [ENDOMETRIOSIS UNSPECIFIED] Onset: 04-29-2022 Chronic Epilepsy; convulsions (16 sources) Seizure; Translations: [Epilepsy, unspecified, not intractable, without status epilepticus] Onset: 10-31-2021 06-21-2017 Chronic Epilepsy; convulsions (20 sources) Seizure; Translations: [Neurological finding] Onset: 03-06-2021 06-06-2016 Episodic Genitourinary symptoms and ill-defined conditions (6 sources) [...] [DEPRESSION UNSPECIFIED] Onset: 08-15-2022 Nausea and vomiting (16 sources) Nausea; Translations: [Nausea] Onset: 04-29-2022 01-27-2019 [...] 09-27-2021 Chronic Other aftercare (1 source) Other mcfp (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 therapy; Translations: [OTH SPORTS CARTOONIST CURRENT DRUG THERAPY] Onset: 08-15-2022 Episodic Other and unspecified benign neoplasm (20 sources) Fibroadenoma of right breast; Translations: [Benign neoplasm of right breast] Onset: 12-26-2023 09-12-2023 Episodic Other and unspecified benign neoplasm (1 source) Benign neoplasm of right breast; Translations: [Breast fibroadenoma, right] Onset: 12-26-2023 Episodic Other circulatory disease (6 sources) Postural orthostatic tachycardia syndrome 06-06-2016 Episodic Other connective tissue disease (1 source) Other symptoms and signs involving the musculoskeletal system; Translations: [Other musculoskeletal symptoms referable to limbs] 04-26-2024 Episodic Other diseases of bladder and urethra [...] Chronic Other nervous system disorders (1 source) Anesthesia of skin; Translations: [Disturbance of skin sensation] 04-26-2024 Episodic Other nutritional; endocrine; and metabolic disorders [...] Chronic Other nutritional; endocrine; and metabolic disorders (10 sources) Body mass index (BMI) 38.0-38.9, adult; [...] allergic rhinitis Chronic Other upper respiratory infections (2 sources) Chronic sinusitis, unspecified; Translations: [Unspecified sinusitis (chronic)] [...] Spondylosis; intervertebral disc disorders; other back problems (3 sources) Dorsalgia, unspecified; Translations: [Muscle spasm of back] Onset: 12-17-2023 Episodic Sprains and strains (20 sources) Strain of neck muscle; Translations: [Strain of muscle, fascia and tendon at neck level, initial encounter] Onset: 04-02-2022 06-22-2017 Episodic Substance-related disorders (3 sources) Smoker 07-24-2016 Chronic Comment on above: Added secondary to d ocumentation in Social History. Superficial injury; contusion (15 sources) Abrasion of foot; Translations: [Abrasion, unspecified [...] Test Name Value Interpretation Reference Range Facility CNOVon 03-12-2024 CNOV Office Visit (BRCRMN ) ----- SULLY ENRIQUEZ ([id number]) 1990 F Date Time Provider Department 03/12/24 10:00 AM ANASTASIA MON [facility] During your visit today, we recorded the following information about you: Weight Height 105.7 kg 1.651 m Anastasia Mon PA-C 03/15/2024 4:18 PM Signed [facility] [place] Department of Breast Surgical Oncology [facility] FOLLOW UP HPI: Sully Enriquez is a [...] Strain: Low Risk (12/17/2023) Received from [facility] Overall Financial Resource Strain (CARDIA) Difficulty of Paying Living Expenses: Not hard at all Food Insecurity: No Food Insecurity (12/17/2023) Received from [facility] Hunger Vital Sign (more content not included)... Normal [facility] DBT Breast - right diagnosti c for [...] Cole M.D. Electronically signed on: 03/12/2024 Director Medical: MAGVIW Transcribe Date/Time: Mar 12 2024 10:58A Dictated by : EDGARD COLE MD This examination was interpreted and the report reviewed and electronically signed by: EDGARD COLE MD on Mar 12 2024 1:18PM [facility] DIVISION OF RADIOLOGY * * *Final Report* * * DATE OF EXAM: Mar 12 2024 11:12AM [facility] [id number] - SAJI ISAACG W DOMINIC RT / PROCEDURE REASON: multiple diagnoses * * * * Physician Interpretation * * * * RESULT: [address] [place] [address] #[id number] - [facility] W DOMINIC RT #[id number] - [facility] BREAST LTD RT HISTORY: Patient is 34 [...] the subareolar region. DIVISION OF RADIOLOGY Provider, Alexa Cox - 03/12/2024 * * *Final Report* * * DATE OF EXAM: Mar 12 2024 11:12AM MCW 0629 - [facility] MARCO W DOMINIC RT / PROCEDURE REASON: multiple diagnoses * * * * Physician Interpretation * * * * RESULT: [address] [place] [address] #[id number] - [facility] MARCO W DOMINIC RT #[id number] - [facility] US BREAST LTD RT HISTORY: Patient is [...] Cole M.D. Electronically signed on: 03/12/2024 Director Medical: BISHOP Transcridalton Date/Time: Mar 12 2024 10:58A Dictated by : EDGARD COLE MD This examination was interpreted and the report reviewed and electronically signed by: EDGARD COLE MD on Mar 12 2024 1:18PM [facility] SAJI DIAG W DOMINIC RTon 024 SA[facility] DIAG W DOMINIC RT * * *Final Report* * * DATE OF EXAM: Mar 12 2024 11:12AM Mykel 0629 - SA[facility] GRAYG W DOMINIC RT / PROCEDURE REASON: multiple diagnoses * * * * Physician Interpretation * * * * RESULT: [address] [place] [address] #[id number] - SAJI MARCO FORRESTO RT #[id number] - [facility] BREAST LTD RT HISTORY: Patient is 34 [...] Cole M.D. Electronically signed on: 03/12/2024 Director Medical: BISHOP Transcribe Date/Time: Mar 12 2024 10:58A Dictated by : EDGARD COLE MD This examination was interpreted and the report reviewed and electronically signed by: EDGARD COLE MD on Mar 12 2024 1:18PM EST [id number] Normal [facility]ix BREAST LTD RTon 03-12 [facility] BREAST LTD RT * * *Final Report* * * DATE OF EXAM: Mar 12 2024 11:41AM W 0594 - [facility] Sign[facility] BREAST Likelii RT / PROCEDURE REASON: multiple diagnoses * * * * Physician Interpretation * * * * RESULT: [place] [address] #[id number] - [facility] DIAG W DOMINIC RT #[id number] - [facility] BREAST Likelii RT HISTORY: Patient is 34 years old [...] Cole M.D. Electronically signed on: 03/12/2024 Director Medical: BISHOP Transcribe Date/Time: Mar 12 2024 11:27A Dictated by : EDGARD COLE MD This examination was interpreted and the report reviewed and electronically signed by: EDGARD COLE MD on Mar 12 2024 1:18PM EST [id number] Normal [facility] No Panel InformationOrdered By: Ccf Provider on 03-12-2024 [facility] No Panel Informationon 03-12 Radiology Study observation (narrative) [facility] US Breast - right limitedon 03-12-2024 [...] Cole M.D. Electronically signed on: 03/12/2024 Director Medical: BISHOP Trujilloridalton Date/Time: Mar 12 2024 11:27A Dictated by : EDGARD COLE MD This examination was interpreted and the report reviewed and electronically signed by: EDGARD COLE MD on Mar 12 2024 1:18PM EST DIVISION OF RADIOLOGY * * *Final Report* * * DATE OF EXAM: Mar 12 2024 11:41AM FLASH 0594 - SAJI US BREAST LTD RT / PROCEDURE REASON: multiple diagnoses * * * * Physician Interpretation * * * * RESULT: [address] [place] [address] #[id number] - [facility] MARCO ALFARO RT #[id number] - [facility] BREAST Likelii RT HISTORY: Patient is 34 years old [...] subareolar region. DIVISION OF RADIOLOGY Provider, Armida Stefani [facility] - 03/12/2024 * * *Final Report* * * DATE OF EXAM: Mar 12 2024 11:41AM MCMykel 0594 - [facility] Sign[facility] BREAST Likelii RT / PROCEDURE REASON: multiple diagnoses * * * * Physician Interpretation * * * * RESULT: [address] [address] #[id number] - [facility] MARCO [place] DOMINIC RT #[id number] - [facility] US BREAST LTD RT HISTORY: Patient is [...] Cole M.D. Electronically signed on: 03/12/2024 Director Medical: BISHOP Transcribe Date/Time: Mar 12 2024 11:27A Dictated by : EDGARD COLE MD This examination was interpreted and the report reviewed and electronically signed by: EDGARD COLE MD on Mar 12 2024 1:18PM [facility] CNOVon 02-17-2024 CNOV Office Visit (ENDOLN ) ----- SULLY ENRIQUEZ ([id number]) 1990 F Date Time Provider Department 02/17/24 1:00 PM DEVAUGHN FITCH ENDOLN During your visit today, we recorded the following information about you: Pulse Blood pressure Weight Height 83/minute 124/81 105.7 kg 1.651 m Devaughn Fitch MD 02/17/2024 2:29 PM Signed ENDOCRINOLOGY REASON [...] [Azithrom* Unk (more content not included)... Normal [facility] CNOVon 01-30-2024 CNOV Office Visit (SLOANCRMN ) ----- SULLY ENRIQUEZ ([id number]) 1990 F Date Time Provider Department 01/30/24 9:30 AM ANASTASIA MON During your visit today, we [...] at di (more content not included)... Normal [facility] US BREAST LTD RTon 01-29 [facility] US BREAST LTD RT * * *Final Report* * * DATE OF EXAM: Jan 30 2024 10:28AM MCW 0594 - [facility] US BREAST LTD RT / PROCEDURE REASON: multiple diagnoses * * * * Physician Interpretation * * * * RESULT: [facility] [address] [facility] [address] [place] [address] HISTORY: Patient is 33 years old and [...] Oro M.D. Electronically signed on: 01/30/2024 Director Medical: BISHOP Transcribe Date/Time: Jan 30 2024 10:14A Dictated by : LOUIE DOLL DO This examination was interpreted and the report reviewed and electronically signed by: HENRIQUE ORO MD on Jan 30 2024 10:36AM EST [id number] Normal [facility] US Breast - right limitedon 01-30-2024 IMPRESSION: There is no abnormality seen in the breast to correspond with the reported palpable abnormalities. Clinical follow-up is recommended. Follow up with ACR and NCCN guidelines is otherwise recommended. BI-RADS Category 1: Negative Interpreting Radiologist: Henrique Oro M.D. Electronically signed on: 01/30/2024 Director Medical: BISHOP Transcridalton Date/Time: Jan 30 2024 10:14A Dictated by : LOUIE DOLL DO This examination was interpreted and the report reviewed and electronically signed by: HENRIQUE ORO MD on Jan 30 2024 10:36AM EST DIVISION OF RADIOLOGY * * *Final Report* * * DATE OF EXAM: Jan 30 2024 10:28AM [facility] - SAJI UCampus RT / PROCEDURE REASON: multiple diagnoses * * * * Physician Interpretation * * * * [address] [place] [id number] HISTORY: Patient is 33 years old and [...] cystic mass identified. DIVISION OF RADIOLOGY Provider, [facility] - 01/30/2024 * * *Final Report* * * DATE OF EXAM: Jan 30 2024 10:28AM [facility] 0594 - SAJI UCampus RT / PROCEDURE REASON: multiple diagnoses * * * * Physician Interpretation * * * * RESULT: [address] [address] HISTORY: Patient is 33 years old and [...] Oro M.D. Electronically signed on: 01/30/2024 Director Medical: BISHOP Transcribe Date/Time: Jan 30 2024 10:14A Dictated by : LOUIE DOLL, DO This examination was interpreted and the report reviewed and electronically signed by: HENRIQUE ORO MD on Jan 30 2024 10:36AM EST [facility] Radiology Study observation (narrative) [facility] US Breast - right limitedOrd ered By: Ccf Provider on 01-30-2024 [facility] CNOVon 01-19-2024 CNOV Office Visit (BRCRMN ) ----- SULLY ENRIQUEZ ([id number]) 1990 F Date Time Provider Department 01/19/24 [...] Encounter Status:Closed by ANASTASIA MON on 01/19/24 [facility] Kt 01-09-2024 GÓMEZN Telephone (BRCRMN) ----- ZOESULLY ([id number]) 1990 F Date Time Provider Department 01/09/24 ADELE SUTTON During your visit today, we recorded the following information about you: Noel Duffy Anyi M 01/09/2024 1:59 PM Signed Patient called stating that since last night she is experiencing right side pain and arm movement makes it worse (level 8), warm to touch, nausea. Patient can be reached at [phone]. Thanks Kobe Wallis 01/09/2024 4:36 PM Signed Returned call and [...] Status:Closed by KOBE WALLIS on 01/09/24 Normal [facility] ANES POSTPROC EVALon 024 ANES POSTPROC EVAL HNO ID: [id number] Author: FAINA DAVIS MD Service: Anesthesiology Author Type: Anesthesiologist Type: Anesthesia Postprocedure Evaluation Filed: 01/08/2024 11:15 Note Text: POST ANESTHESIA EVALUATION NOTE : 1990 Procedure Summary Date: 01/08/24 Room / Location: [address] Anesthesia Start: 731 Anesthesia Stop: 922 [...] January 08, 2024 TIME: 11:15 AM CSN: [id number] Normal [facility] ANES PRE-OPon 01-08-2024 ANES PRE-OP HNO ID: [id number] Author: BAMBI MAGANA DO Service: Anesthesiology Author Type: Anesthesiologist Type: Anesthesia Preprocedure Evaluation Filed: 01/08/2024 07:07 Note Text: ANESTHESIOLOGY DAY OF SURGERY NOTE : 1990 Procedure Information Date/Time: 01/08/24729 Procedure: RIGHT ZAYDA EXCISIONAL BIOPSY (Right: Breast) Location: [address] Surgeons: Adele Sutton MD Estimated body [...] and consent discussed: yes. Patient / Responsible Libertarian agrees to proceed: yes Patient / Surrogate agrees to blood products: Yes Significant changes in the patient condition since the History and Physical, not otherwise documented in primary service progress note: no. Potential Anesthesia issues that may suggest increased risk of complications or contraindication to planned procedure: none. Vitals Value Taken Time BP 123/85 01/08/24646 Pulse 64 01/08/24646 Resp 16 01/08/24646 Temp 36.3 ?C (97.3 ?F) 01/08/24646 SpO2 99 % 01/08/24646 Facility-Administered Medications as of 01/08/2024 Medication Dose [...] January 08, 2024 TIME: 6:57 AM CSN: [id number] Normal [facility] HISTORY PHYSICALon HISTORY PHYSICAL HNO ID: [id number] Author: ADELE SUTTON MD Service: General Surgery Author Type: Physician Type: H&P Filed: 01/08/2024 07:25 Note Text: UPDATED HISTORY AND PHYSICAL EXAMINATION SERVICE DATE: 01/08/2024 SERVICE TIME: 7:25 AM SENSITIVE EXAMINATION CONSENT: The sensitive examination was discussed with the Patient or Patient's Authorized Manager Applied. As applicable, any other physician, advance practice provider, medical student, or other health professional student that will be observing or involved in the sensitive examination for educational or training purposes was discussed with the Patient or Authorized Manager Applied. The Patient or Authorized Manager Applied has agreed to proceed with the sensitive [...] January 08, 2024 TIME: 7:25 AM Normal [facility] SURGICAL BREAST SPECIMEN RTon 01-08-2024 [facility] SURGICAL BREAST SPECIMEN RT * * *Final Report* * * DATE OF EXAM: Jan 08 2024 8:41AM [facility] 0639 - [facility] SURGICAL BREAST SPECIMEN RT / PROCEDURE REASON: Right breast surgical specimen * * * * Physician Interpretation * * * * [place] [address] HISTORY: Right Specimen Radiograph CORRELATION: A single image of the surgical specimen demonstrates a ZAYDA lease out man, a hydromark open coil clip, and a buckle clip in the specimen. IMPRESSION: SPECIMEN A single image of the surgical specimen demonstrates a ZAYDA lease out man, a hydromark open coil clip, and a buckle clip in the specimen. SUMMARY: Urgent Results: The results of the specimen radiograph were discussed with Dr. Sutton in the O.R. On 01/08/2024 at 0847. Interpreting Radiologist: Kristi Cheek M.D. Director Medical: BISHOP Transcribe Date/Time: Jan 08 2024 8:41A Dictated by : KRISTI CHEEK MD This examination was interpreted and the report reviewed and electronically signed by: KRISTI CHEEK MD on Jan 08 2024 8:50AM EST [id number] Normal [facility] OPERATIVE NOon 01-08-2024 OPERATIVE NO HNO ID: [id number] Author: ADELE SUTTON MD Service: General Surgery Author Type: Physician Type: Operative Report Filed: 01/08/2024 08:43 Note Text: OPERATIVE/PROCEDURE REPORT LOG ID: [id number] SURGERY DATE: 01/08/2024 Incision/Procedure Start Time: 8:00 AM Incision Close/Procedure End Time: 8:42 AM Surgeon(s) and Sales Correspondent(s): Surgeons and Role: * Adele Sutton MD - Primary * Modesto Goff MD - Resident - Assisting No Additional Staff SURGERY/PROCEDURES: RIGHT breast ZAYDA REPRODUCER localized excisional biopsy Anesthesia: General Breast History: 06/2023 - Self palpated RIGHT breast mass. 06/25/23 ([facility]) - diagnostic bilateral mammogram/US - diffuse heterogenous density. In the right breast at 8:00 approximately 4 to 5 cm from the nipple, is a hypoechoic avascular area that measures 2.0 x 1.6 x 1.1 cm. In the right upper outer quadrant of the breast at 2.8 x 1.0 x 2.8 cm lymph node is seen. There is no cortical thickening. 07/07/23 ([facility] - US guided CNB 8:00 4-5 [...] laterality, and other pertinent information. The ZAYDA REPRODUCER was localized within the breast, and its location was marked on the skin. Local anesthesia was infiltrated in a dermal and deep parenchymal pattern. A lateral inframammary incision was made. Flaps were created around the lesion, using the ZAYDA REPRODUCER probe for guidance, with an adequate margin [...] imaging was performed which identified the ZAYDA REPRODUCER, the biopsy clips, and the lesion of [...] Collected by Time Destination A : zayda lease out man right breast. (suture sr short superior, long [...] DATE: 01/08/2024 TIME: 8:42 AM PAGER/CONTACT #: [phone] Normal [facility] SURGICAL PATHOLOGYon 024 CASE REPORT Normal [facility] Comment on above: Order Comment: Speci men Type: TISSUE SPECIMENOrdering Facility: [facility] Address: [address] [place] [address] Result Comment: Surg [facility] Pathology Report Case: [id number] Authorizing Provider: Adele Sutton MD Collected: 01/08/2024 07:10 AM Ordering Location: Ambulatory Surgery Received: 01/08/2024 09:04 AM Pathologist: Pat Silveira MD Specimen: Breast, Right, Excision of Lesion, zayda lease out man right breast. 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 - Adjacent breast tissue with cystic change, apocrine metaplasia, usual ductal hyperplasia, and columnar cell change. - Core biopsy site changes and clip x 2. Performed By: #### S ####[facility] LABORATORYCLIA [id number] [address] LABCLIA [id number] [place] [address] [place] FINAL PERFORMING LAB Normal [facility] Comment on above: Order Comment: Speci men Type: TISSUE SPECIMENOrdering Facility: [facility] Address: [address] [place] [address] Result Comment: Diag nostic interpretation performed at [facility], [address] [facility], [place] [address] CLIA# [id number] Financing Analyst: Columba Villasenor M.D. Performed By: #### S ####[facility] LABORATORYCLIA [id number] [address] LABCLIA [id number] [place] [address] [place] GROSS DESCRIPTION Normal [facility] Comment on above: Order Comment: Speci men Type: TISSUE SPECIMENOrdering Facility: [facility] Address: [address] [place] [address] Result Comment: Emma pondt, Right, Excision of Lesion Received in formalin [...] prior to sectioning to reveal a Zayda lease out man device, a buckle clip and a HydroMARK [...] formalin was 8:55 AM on 01/08/2024. Manager Applied sections are submitted as follows: A1 slice [...] and posterior margin Gross examination performed at [facility], [address] [place] [address], [place] [address] CLIA# [id number] [facility] 01/08/24 12:49 PM Performed By: #### S ####[facility] LABORATORYCLIA [id number] [address] [facility] LABCLIA [id number] [place] [address] [place] Basophils Auto (Bld) [#/Vol] on 01-07-2024 Basophils (Bld) [#/Vol] 0.05 10*3/uL <0.11 [facility] Basophils/100 WBC Auto (Bld) on 01-07-2024 Basophils/100 WBC (Bld) 0.8 % F [facility] Blood manual differential co mment interpretation narrativeon 01-07-2024 Manual differential comment David (Bld) [Interp] Auto [facility] CBC W Auto Differential pane l (Bld)on 01-07-2024 Basophils (Bld) [#/Vol] 0.05 10*3/uL Normal <0.11 [facility] Comment on above: Order Comment: Speci men Type: BLOOD SPECIMENOrdering Facility: [facility] Address: [address] [place] [address] Performed By: #### 5 7021-8 ####[facility] LABCLIA [id number] [place] [address] [place] Basophils/100 WBC (Bld) 0.8 % Normal C [facility] Comment on above: Order Comment: Speci men Type: BLOOD SPECIMENOrdering Facility: [facility] Address: [address] [place] [address] Performed By: #### 5 7021-8 ####[facility] LABCLIA [id number] [place] [address] [place] Differential cell count method Nom (Bld) Auto Normal [facility] Comment on above: Order Comment: Speci men Type: BLOOD SPECIMENOrdering Facility: [facility] Address: [address] [place] [address] Performed By: #### 5 7021-8 ####[facility] LABCLIA [id number] [place] [address] [place] Eosinophils (Bld) [#/Vol] 0.10 10*3/uL Normal <0.46 [facility] Comment on above: Order Comment: Speci men Type: BLOOD SPECIMENOrdering Facility: [facility] Address: [address] [place] [address] Performed By: #### 5 7021-8 ####[facility] LABCLIA [id number] [place] [address] [place] Eosinophils/100 WBC (Bld) 1.5 % Normal [facility] Comment on above: Order Comment: Speci men Type: BLOOD SPECIMENOrdering Facility: [facility] Address: [address] [place] [address] Performed By: #### 5 7021-8 ####[facility] LABCLIA [id number] [place] [address] [place] Erythrocyte distribution width (RBC) [Ratio] 11.9 % Normal 11.5-15.0 [facility] Comment on above: Order Comment: Speci men Type: BLOOD SPECIMENOrdering Facility: [facility] Address: [address] [place] [address] Performed By: #### 5 7021-8 ####[facility] LABCLIA [id number] [place] [address] [place] Hematocrit (Bld) [Volume fraction] 41.8 % Normal 36.0-46.0 [facility] Comment on above: Order Comment: Speci men Type: BLOOD SPECIMENOrdering Facility: [facility] Address: [address] [place] [address] Performed By: #### 5 7021-8 ####[facility] LABCLIA [id number] [place] [address] [place] Hemoglobin (Bld) [Mass/Vol] 14.1 g/dL Normal 11.5-15.5 [facility] Comment on above: Order Comment: Speci men Type: BLOOD SPECIMENOrdering Facility: [facility] Address: [address] [place] [address] Performed By: #### 5 7021-8 ####[facility] LABCLIA [id number] [place] [address] [place] Immature granulocytes (Bld) [#/Vol] 10*3/uL Normal <0.10 [facility] Comment on above: Order Comment: Speci men Type: BLOOD SPECIMENOrdering Facility: [facility] Address: [address] [place] [address] Performed By: #### 5 7021-8 ####[facility] LABCLIA [id number] [place] [address] [place] Immature granulocytes/100 WBC (Bld) 0.2 % Normal [facility] Comment on above: Order Comment: Speci men Type: BLOOD SPECIMENOrdering Facility: [facility] Address: [address] [place] [address] Performed By: #### 5 7021-8 ####[facility] LABCLIA [id number] [place] [address] [place] Lymphocytes (Bld) [#/Vol] 2.46 10*3/uL Normal 1.00-4.00 [facility] Comment on above: Order Comment: Speci men Type: BLOOD SPECIMENOrdering Facility: [facility] Address: [address] [place] [address] Performed By: #### 5 7021-8 ####[facility] LABCLIA [id number] [place] [address] [place] Lymphocytes/100 WBC (Bld) 36.9 % Normal [facility] Comment on above: Order Comment: Speci men Type: BLOOD SPECIMENOrdering Facility: [facility] Address: [address] [place] [address] Performed By: #### 5 7021-8 ####[facility] LABCLIA [id number] [place] [address] [place] MCH (RBC) [Entitic mass] 31.8 pg Normal 26.0-34.0 [facility] Comment on above: Order Comment: Speci men Type: BLOOD SPECIMENOrdering Facility: [facility] Address: [address] [place] [address] Performed By: #### 5 7021-8 ####[facility] LABCLIA [id number] [place] [address] [place] MCHC (RBC) [Mass/Vol] 33.7 g/dL Normal 30.5-36.0 [facility] Comment on above: Order Comment: Speci men Type: BLOOD SPECIMENOrdering Facility: [facility] Address: [address] [place] [address] Performed By: #### 5 7021-8 ####[facility] LABCLIA [id number] [place] [address] [place] MCV (RBC) [Entitic vol] 94.4 fL Normal 80.0-100.0 [facility] Comment on above: Order Comment: Speci men Type: BLOOD SPECIMENOrdering Facility: [facility] Address: [address] [place] [address] Performed By: #### 5 7021-8 ####[facility] LABCLIA [id number] [place] [address] [place] Monocytes (Bld) [#/Vol] 0.48 10*3/uL Normal <0.87 [facility] Comment on above: Order Comment: Speci men Type: BLOOD SPECIMENOrdering Facility: [facility] Address: [address] [place] [address] Performed By: #### 5 7021-8 ####[facility] LABCLIA [id number] [place] [address] [place] Monocytes/100 WBC (Bld) 7.2 % Normal [facility] Comment on above: Order Comment: Speci men Type: BLOOD SPECIMENOrdering Facility: [facility] Address: [address] [place] [address] Performed By: #### 5 7021-8 ####[facility] LABCLIA [id number] [place] [address] [place] Neutrophils (Bld) [#/Vol] 3.56 10*3/uL Normal 1.45-7.50 [facility] Comment on above: Order Comment: Speci men Type: BLOOD SPECIMENOrdering Facility: [facility] Address: [address] [place] [address] Performed By: #### 5 7021-8 ####[facility] LABCLIA [id number] [place] [address] [place] Neutrophils/100 WBC (Bld) 53.4 % Normal [facility] Comment on above: Order Comment: Speci men Type: BLOOD SPECIMENOrdering Facility: OUR [facility] Address: [address] [place] [address] Performed By: #### 5 7021-8 ####[facility] LABCLIA [id number] [place] [address] [place] Nucleated RBC (Bld) [#/Vol] 10*3/uL Normal <0.01 [facility] Comment on above: Order Comment: Speci men Type: BLOOD SPECIMENOrdering Facility: [facility] Address: [address] [place] [address] Performed By: #### 5 7021-8 ####[facility] LABCLIA [id number] [place] [address] [place] Nucleated RBC/100 WBC (Bld) [Ratio] 0.0 /100 WBC Normal [facility] Comment on above: Order Comment: Speci men Type: BLOOD SPECIMENOrdering Facility: [facility] Address: [address] [place] [address] Performed By: #### 5 7021-8 ####[facility] LABCLIA [id number] [place] [address] [place] Platelet mean volume (Bld) [Entitic vol] 10.9 fL Normal 9.0-12.7 [facility] Comment on above: Order Comment: Speci men Type: BLOOD SPECIMENOrdering Facility: [facility] Address: [address] [place] [address] Performed By: #### 5 7021-8 ####[facility] LABCLIA [id number] [address] [address] [place] Platelets (Bld) [#/Vol] 211 10*3/uL Normal 150-400 [facility] Comment on above: Order Comment: Speci men Type: BLOOD SPECIMENOrdering Facility: [facility] Address: [address] [place] [address] Performed By: #### 5 7021-8 ####[facility] LABCLIA [id number] [place] [address] [place] RBC (Bld) [#/Vol] 4.43 10*6/uL Normal 3.90-5.20 [facility] Comment on above: Order Comment: Speci men Type: BLOOD SPECIMENOrdering Facility: [facility] Address: [address] [place] [address] Performed By: #### 5 7021-8 ####[facility] LABIA [id number] [place] [address] [place] WBC (Bld) [#/Vol] 6.66 10*3/uL Normal 3.70-11.00 [facility] Comment on above: Order Comment: Speci men Type: BLOOD SPECIMENOrdering Facility: [facility] Address: [address] [place] [address] Performed By: #### 5 7021-8 ####[facility] LABIA [id number] [place] [address] [place] Comprehensive metabolic 2000 panelon 01-07-2024 Albumin [Mass/Vol] 4.5 g/dL Normal 3.9-4.9 [facility] Comment on above: Order Comment: Speci men Type: BLOOD SPECIMENOrdering Facility: [facility] Address: [address] [place] [address] Performed By: #### 2 4323-8 ####[facility] LABCLIA [id number] [address] [place] [address] [place] ALP [Catalytic activity/Vol] 49 U/L Normal 34-123 [facility] Comment on above: Order Comment: Speci men Type: BLOOD SPECIMENOrdering Facility: [facility] Address: [address] [place] [address] Performed By: #### 2 4323-8 ####[facility] LABCLIA [id number] [place] [address] [place] ALT [Catalytic activity/Vol] 21 U/L Normal 7-38 [facility] Comment on above: Order Comment: Speci men Type: BLOOD SPECIMENOrdering Facility: [facility] Address: [address] [place] [address] Performed By: #### 2 4323-8 ####[facility] LABCLIA [id number] [place] [address] [place] Anion gap [Moles/Vol] 21 mmol/L High 8-15 [facility] Comment on above: Order Comment: Speci men Type: BLOOD SPECIMENOrdering Facility: [facility] Address: [address] [place] [address] Performed By: #### 2 4323-8 ####[facility] LABCLIA [id number] [place] [address] [place] AST [Catalytic activity/Vol] 24 U/L Normal 13-35 [facility] Comment on above: Order Comment: Speci men Type: BLOOD SPECIMENOrdering Facility: [facility] Address: [address] [place] [address] Performed By: #### 2 4323-8 ####[facility] LABCLIA [id number] [place] [address] [place] Bilirubin [Mass/Vol] 0.7 mg/dL Normal 0.2-1.3 [facility] Comment on above: Order Comment: Speci men Type: BLOOD SPECIMENOrdering Facility: [facility] Address: [address] [place] [address] Performed By: #### 2 4323-8 ####[facility] LABCLIA [id number] [place] [address] [place] Calcium [Mass/Vol] 9.1 mg/dL Normal 8.5-10.2 [facility] Comment on above: Order Comment: Speci men Type: BLOOD SPECIMENOrdering Facility: [facility] Address: [address] [place] [address] Performed By: #### 2 4323-8 ####[facility] LABCLIA [id number] [place] [address] [place] Chloride [Moles/Vol] 104 mmol/L Normal 98-107 [facility] Comment on above: Order Comment: Speci men Type: BLOOD SPECIMENOrdering Facility: [facility] Address: [address] [place] [address] Performed By: #### 2 4323-8 ####[facility] LABCLIA [id number] [place] [address] [place] CO2 [Moles/Vol] 14 mmol/L Low 22-30 [facility] Comment on above: Order Comment: Speci men Type: BLOOD SPECIMENOrdering Facility: [facility] Address: [address] [place] [address] Performed By: #### 2 4323-8 ####[facility] LABCLIA [id number] [place] [address] [place] Creatinine [Mass/Vol] 0.83 mg/dL Normal 0.58-0.96 [facility] Comment on above: Order Comment: Speci men Type: BLOOD SPECIMENOrdering Facility: [facility] Address: [address] [place] [address] Performed By: #### 2 4323-8 ####[facility] LABCLIA [id number] [place] [address] [place] Creatinine and Glomerular filtration rate.predicted panel (S/P/Bld) 95 mL/min/1.73m??? Normal >=60 [facility] Comment on above: Order Comment: Sukumar bellamy Type: BLOOD SPECIMENOrdering Facility: [facility] Address: [address] [place] [address] Result Comment: Rosalia mated Glomerular Filtration Rate [...] actual GFR. Performed By: #### 2 4323-8 ####[facility] LABIA [id number] [place] [address] [place] Glucose [Mass/Vol] 85 mg/dL Normal 74-99 [facility] Comment on above: Order Comment: Sukumar bellamy Type: BLOOD SPECIMENOrdering Facility: [facility] Address: [address] [place] [address] Result Comment: The [place] Diabetes Association (ADA) provides guidance for cutoff [...] Standards of Medical Care in Diabetes 2016, [place] [employer]. Diabetes Care. 2016.39(Suppl 1). Performed By: #### 2 4323-8 ####[facility] LABIA [id number] [place] [address] [place] Potassium [Moles/Vol] 4.1 mmol/L Normal 3.7-5.1 [facility] Comment on above: Order Comment: Speci men Type: BLOOD SPECIMENOrdering Facility: [facility] Address: [address] [place] [address] Performed By: #### 2 4323-8 ####[facility] LABCLIA [id number] [place] [address] [place] Protein [Mass/Vol] 7.1 g/dL Normal 6.3-8.0 [facility] Comment on above: Order Comment: Speci men Type: BLOOD SPECIMENOrdering Facility: [facility] Address: [address] [place] [address] Performed By: #### 2 4323-8 ####[facility] LABCLIA [id number] [place] [address] [place] Sodium [Moles/Vol] 139 mmol/L Normal 136-144 [facility] Comment on above: Order Comment: Speci men Type: BLOOD SPECIMENOrdering Facility: [facility] Address: [address] [place] [address] Performed By: #### 2 4323-8 ####[facility] LABCLIA [id number] [place] [address] [place] Urea nitrogen [Mass/Vol] 9 mg/dL Normal 7-21 [facility] Comment on above: Order Comment: Speci men Type: BLOOD SPECIMENOrdering Facility: [facility] Address: [address] [place] [address] Performed By: #### 2 4323-8 ####[facility] LABCLIA [id number] [place] [address] [place] Eosinophils/100 WBC Auto (Bl d)on 01-07-2024 Eosinophils/100 WBC (Bld) 1.5 % [facility] Erythrocyte distribution wid th Auto (RBC) [Ratio]on 01-07-2024 Erythrocyte distribution width (RBC) [Ratio] 11.9 % 11.5-15.0 [facility] Hematocrit Auto (Bld) [Volum e fraction]on 01-07-2024 Hematocrit (Bld) [Volume fraction] 41.8 % 36.0-46.0 [facility] Hemoglobin [Mass/volume] in Bloodon 01-07-2024 Hemoglobin (Bld) [Mass/Vol] 14.1 g/dL 11.5-15.5 [facility] Laboratory - Chemistry and C hemistry - challengeon 01-07-2024 Albumin [Mass/Vol] 4.5 g/dL 3.9-4.9 [facility] ALP [Catalytic activity/Vol] 49 U/L 34-123 [facility] ALT [Catalytic activity/Vol] 21 U/L 7-38 [facility] AST [Catalytic activity/Vol] 24 U/L 13-35 [facility] Bilirubin [Mass/Vol] 0.7 mg/dL 0.2-1.3 [facility] Calcium [Mass/Vol] 9.1 mg/dL 8.5-10.2 [facility] Chloride [Moles/Vol] 104 mmol/L 98-107 [facility] CO2 [Moles/Vol] 14 mmol/L Low 22-30 [facility] Creatinine [Mass/Vol] 0.83 mg/dL 0.58-0.96 [facility] Glucose [Mass/Vol] 85 mg/dL 74-99 [facility] Comment on above: The [place] Diabete s Association (ADA) provides guidance for [...] Standards of Medical Care in Diabetes 2016, [place] [employer]. Diabetes Care. 2016.39(Suppl 1). Potassium [Moles/Vol] 4.1 mmol/L 3.7-5.1 [facility] Sodium [Moles/Vol] 139 mmol/L 136-144 [facility] Urea nitrogen [Mass/Vol] 9 mg/dL 7-21 [facility] Laboratory - Hematology and Cell countson 01-07-2024 Eosinophils (Bld) [#/Vol] 0.10 10*3/uL <0.46 [facility] Immature granulocytes/100 WBC (Bld) 0.2 % [facility] Leukocytes [#/volume] correc armaan for nucleated erythrocytes in Blood by Automated counon 01-07-2024 WBC corrected for nucl RBC Auto (Bld) [#/Vol] 6.66 k/uL 3.70-11.00 [facility] Lymphocytes Auto (Bld) [#/Vo l]on 01-07-2024 Lymphocytes (Bld) [#/Vol] 2.46 10*3/uL 1.00-4.00 [facility] Lymphocytes/100 WBC Auto (Bl d)on 01-07-2024 Lymphocytes/100 WBC (Bld) 36.9 % [facility] DIAGNOSTIC RTon 01-07-20 24 [facility] DIAGNOSTIC RT * * *Final Report* * * DATE OF EXAM: Jan 07 2024 10:19AM [facility] - [facility] DIAGNOSTIC RT / PROCEDURE REASON: Breast fibroadenoma, right * * * * Physician Interpretation * * * * RESULT: [place] [address] HISTORY: Patient is 33 years old and [...] tissue. Interpreting Radiologist: Yamila August M.D. Director Medical: BISHOP Transcribe Date/Time: Jan 07 2024 9:53A Dictated by : CARLOS OLMEDO DO This examination was interpreted and the report reviewed and electronically signed by: YAMILA AUGUST MD on Jan 07 2024 10:47AM EST [id number] Normal [facility] US LOC BREAST RTon 01-06 [facility] US LOC BREAST RT * * *Final Report* * * DATE OF EXAM: Jan 07 2024 10:12AM [facility] 0600 - [facility] US LOC BREAST RT / PROCEDURE REASON: Breast fibroadenoma, right * * * * Physician Interpretation * * * * RESULT: [place] [address] HISTORY: 33 year old patient presents for [...] were present throughout the entire procedure. The human resources office assistant radiologist was Carlos Olmedo DO. The human resources office assistant radiologist administered local anesthesia and placed [...] targeted area. Reflector placement/activation was verified with Manipulator Operator Check following the procedure. IMPRESSION: Site 1: Successful infrared activated electromagnetic reflector device placement for a mass in the right breast at 8 o'clock posterior depth 4-5 cm from the nipple with no apparent complications. A specimen radiograph is recommended. The specimen radiograph should include the Manipulator Operator reflector, the Hydromark open coil clip, and additional biopsy marking clip. Interpreting Radiologist: Yamila August M.D. Director Medical: BISHOP Transcribe Date/Time: Jan 07 2024 9:50A Dictated by : CARLOS OLMEDO, DO This examination was interpreted and the report reviewed and electronically signed by: YAMILA AUGUST MD on Jan 07 2024 10:46AM EST [id number] Normal [facility] MCH Auto (RBC) [Entitic mass ]on 01-07-2024 MCH (RBC) [Entitic mass] 31.8 pg 26.0-34.0 [facility] MCHC Auto (RBC) [Mass/Vol]on 01-07-2024 MCHC (RBC) [Mass/Vol] 33.7 g/dL 30.5-36.0 [facility] MCV Auto (RBC) [Entitic vol] on 01-07-2024 MCV (RBC) [Entitic vol] 94.4 fL 80.0-100.0 F [facility] MG Breast - right Diagnostic for implanton [...] tissue. Interpreting Radiologist: Yamila August M.D. Director Medical: BISHOP Transcribe Date/Time: Jan 07 2024 9:53A Dictated by : CARLOS OLMEDO DO This examination was interpreted and the report reviewed and electronically signed by: YAMILA AUGUST MD on Jan 07 2024 10:47AM [facility] DIVISION OF RADIOLOGY * * *Final Report* * * DATE OF EXAM: Jan 07 2024 10:19AM [facility] - [facility] DIAGNOSTIC RT / PROCEDURE REASON: Breast fibroadenoma, right * * * * Physician Interpretation * * * * RESULT: [place] [address] HISTORY: Patient is 33 years old and [...] obscure small masses. DIVISION OF RADIOLOGY Provider, [facility] - 01/07/2024 * * *Final Report* * * DATE OF EXAM: Jan 07 2024 10:19AM [facility] - [facility] DIAGNOSTIC RT / PROCEDURE REASON: Breast fibroadenoma, right * * * * Physician Interpretation * * * * RESULT: [facility] [address] [facility] [place] [address] HISTORY: Patient is 33 years old and [...] tissue. Interpreting Radiologist: Yamila August M.D. Director Medical: BISHOP Transcribe Date/Time: Jan 07 2024 9:53A Dictated by : CARLOS OLMEDO DO This examination was interpreted and the report reviewed and electronically signed by: YAMILA AUGUST MD on Jan 07 2024 10:47AM EST [facility] Radiology Study observation (narrative) [facility] Monocytes Auto (Bld) [#/Vol] on 01-07-2024 Monocytes (Bld) [#/Vol] 0.48 10*3/uL <0.87 [facility] Monocytes/100 WBC Auto (Bld) on 01-07-2024 Monocytes/100 WBC (Bld) 7.2 % F [facility] Neutrophils Auto (Bld) [#/Vo l]on 01-07-2024 Neutrophils (Bld) [#/Vol] 3.56 10*3/uL 1.45-7.50 [facility] Neutrophils/100 WBC Auto (Bl d)on 01-07-2024 Neutrophils/100 WBC (Bld) 53.4 % [facility] No Panel InformationOrdered By: Ccf Provider on 01-07-2024 [facility] No Panel Informationon 01-06 Estimated GFR (CKD-EPI) 95 mL/min/1.73m??? >=60 [facility] Comment on above: Estimated Glomerular Filtration [...] Immature Granulocyte # (Auto) <0.03 k/uL <0.10 [facility] Nucleated RBC Auto (Bld) [#/ Vol]on 01-07-2024 Nucleated RBC (Bld) [#/Vol] 10*3/uL <0.01 [facility] Nucleated erythrocytes [Pres ence] in Blood by Automated counton 01-07-2024 Nucleated RBC Auto Ql (Bld) 0.0 /100{WBC} [facility] PT EDon 01-07-2024 PT ED HNO ID: [id number] Author: MASHA JOHNSTON Tech Service: ? Author [...] MATERIAL: Homegoing instructions REFERRAL (RECOMMENDATION): None Normal [facility] Platelet mean volume Auto (B ld) [Entitic vol]on 01-07-2024 Platelet mean volume (Bld) [Entitic vol] 10.9 fL 9.0-12.7 [facility] Platelets Auto (Bld) [#/Vol] on 01-07-2024 Platelets (Bld) [#/Vol] 211 10*3/uL 150-400 [facility] Protein [Mass/volume] in Ser um or Plasmaon 01-07-2024 Protein [Mass/Vol] 7.1 g/dL 6.3-8.0 [facility] RBC Auto (Bld) [#/Vol]on RBC (Bld) [#/Vol] 4.43 10*6/uL 3.90-5.20 [facility] Serum or plasma anion gap de terminationon 01-07-2024 Anion gap [Moles/Vol] 21 mmol/L High 8-15 [facility] US Guidance for localization of Breast - righton 01-07-2024 IMPRESSION: Site 1: Successful infrared activated electromagnetic reflector device placement for a mass in the right breast at 8 o'clock posterior depth 4-5 cm from the nipple with no apparent complications. A specimen radiograph is recommended. The specimen radiograph should include the Manipulator Operator reflector, the Hydromark open coil clip, and additional biopsy marking clip. Interpreting Radiologist: Yamila August M.D. Director Medical: BISHOP Transcribe Date/Time: Jan 07 2024 9:50A Dictated by : CARLOS OLMEDO, This examination was interpreted and the report reviewed and electronically signed by: YAMILA AUGUST MD on Jan 07 2024 10:46AM [facility] DIVISION OF RADIOLOGY * * *Final Report* * * DATE OF EXAM: Jan 07 2024 10:12AM [facility] - [facility] LOC BREAST RT / PROCEDURE REASON: Breast fibroadenoma, right * * * * Physician Interpretation * * * * RESULT: [address] [place] [address] HISTORY: 33 year old patient presents for [...] were present throughout the entire procedure. The human resources office assistant radiologist was Carlos Olmedo DO. The human resources office assistant radiologist administered local anesthesia and placed [...] targeted area. Reflector placement/activation was verified with Manipulator Operator Check following the procedure. DIVISION OF RADIOLOGY Provider, [facility] Stefani [facility]row [facility] - 01/07/2024 * * *Final Report* * * DATE OF EXAM: Jan 07 2024 10:12AM [facility] 0600 - [facility] LOC BREAST RT / PROCEDURE REASON: Breast fibroadenoma, right * * * * Physician Interpretation * * * * RESULT: [facility] [address] [facility] [address] [place] [id number] HISTORY: 33 year old patient presents for [...] were present throughout the entire procedure. The human resources office assistant radiologist was Carlos Olmedo DO. The human resources office assistant radiologist administered local anesthesia and placed [...] targeted area. Reflector placement/activation was verified with Manipulator Operator Check following the procedure. IMPRESSION IMPRESSION: Site 1: Successful infrared activated electromagnetic reflector device placement for a mass in the right breast at 8 o'clock posterior depth 4-5 cm from the nipple with no apparent complications. A specimen radiograph is recommended. The specimen radiograph should include the Manipulator Operator reflector, the Hydromark open coil clip, and additional biopsy marking clip. Interpreting Radiologist: Yamila August M.D. Director Medical: BISHOP Transcribe Date/Time: Jan 07 2024 9:50A Dictated by : CARLOS OLMEDO, DO This examination was interpreted and the report reviewed and electronically signed by: YAMILA AUGUST MD on Jan 07 2024 10:46AM EST [facility] Radiology Study observation (narrative) [facility] 01-06-2024 CNPN Telephone ([facility]) ----- SULLY ENRIQUEZ ([id number]) 1990 F Date Time Provider Department 01/06/24 [...] Encounter Status:Closed by CAMILA RUSSO on 01/06/24 [facility] HISTORY PHYSICALon HISTORY PHYSICAL HNO ID: [id number] Author: CAMILA RUSSO PA-C Service: ? Author Type: Physician Sales Correspondent Type: H&P Filed: 01/06/2024 14:18 Note Text: [...] surgeon This is a virtual visit using [employer] video visit. It required patient-provider interaction for [...] virtual visit. The visit was conducted using [employer] video visit. It required patient-provider interaction for the medical decision making as documented below. I have communicated my name and active licensure. The patient's identity and physical location were verified at the time of this visit. Either the patient or their legal fundraising sale representative has been informed of the risks and benefits of and alternatives to treatment through a remote evaluation and consents to proceed with the evaluation re (more content not included)... Normal [facility] Kt 01-02-2024 [facility] Telephone ([facility]) ----- ZOESULLY Cullen ([id number]) 1990 F Date Time Provider Department 01/02/24 [...] Encounter Status:Closed by SALINA DICKINSON on 01/02/24 [facility] HISTORY PHYSICALon HISTORY PHYSICAL HNO ID: [id number] Author: SALINA DICKINSON PA-C Service: ? Author Type: Physician Sales Correspondent Type: H&P Filed: 01/02/2024 11:27 Note Text: [...] reschedule PACC visit. Salina Dickinson PA-C 01/02/2024 [facility] CNPMagaly 12-31-2023 [facility] Telephone (PCMT) ----- SULLY ENRIQUEZ ([id number]) 1990 F Date Time Provider Department 12/31/23 [facility] During your visit today, we recorded the following information about you: Tamika Camacho APRN.CNP 12/31/2023 3:06 PM Signed Patient was scheduled for virtual PACC appt at 1500 today. Patient did not check in for visit. Called patient at 1505, stated they forgot and needed to reschedule This message routed to PACC schedulers to contact patient to reschedule PACC appt. Tamika Camacho APRN.ESCALATOR ATTENDANT Allergies As of Date: 12/31/2023 Noted Allergy [...] Status:Closed by TAMIKA CAMACHO on 12/31/23 Normal [facility] Bacteria [Presence] in Urine by AutomatedOrdered By: Mario Glasgow on 12-26-2023 Bacteria Auto Ql (U) Rare [HPF] None Seen [facility] Bilirubin Test strip Ql (U)O rdered By: Mario Glasgow on 12-26-2023 Bilirubin Ql (U) Negative Negative [facility] CNOVon 12-26-2023 CNOV Office Visit (BR[facility]MN ) ----- SULLY ENRIQUEZ ([id number]) 1990 F Date Time Provider Department 12/26/23 1:00 PM ADELE SUTTON BR[facility]MN During your visit today, we recorded the following information about you: Weight Height 105.2 kg 1.651 m Adele Sutton MD 12/26/2023 3:52 PM Signed [facility] [place] Department of General Surgery [facility] REASON for TODAY'S VISIT: Patient presents with: New Patient REFERRAL: Referring Provider: Franchesca Man PCP: Keli Strickland NP, [employer] TECHNICIAN My clinic note and plan will be [...] - Self palpated RIGHT breast mass. 06/25/23 ([facility]) - diagnostic bilateral mammogram/US - diffuse heterogenous density. In the right breast at 8:00 approximately 4 to 5 cm from the nipple, is a hypoechoic avascular area that measures 2.0 x 1.6 x 1.1 cm. In the right upper outer quadrant of the breast at 2.8 x 1.0 x 2.8 cm lymph node is seen. There is no cortical thickening. 07/07/23 ([facility] - US guided CNB 8:00 4-5 CMFN 2 x 1 x 1.7 cm mass with unspecified clip placement - fibrocystic change. Concordant. 08/07/23 ([facility]) - RIGHT breast US - 8:00 4-5 CMFN 2 x 0.9 x 1.3 cm mass. 9:00 9 CMFN, no US abnormality to correlate with area of pain. 09/08/23 ([facility]) - Right breast at 8 o'clock, 4-5 cm from nipple, ultrasound-guided core biopsy with coil clip placement: Fibroadenoma.Concordant. BREAST AND DYNAMOMETER TUNER RELATED HISTORY: Prior biopsies: as above Prior surgeries: as above Implants: No Contraceptive use: Current: none Past: OCPs in 2011 at age 20 Exogenous hormone use: none Prior radiation: There is no history of Radiation Therapy. 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 Stays [...] Ciprofloxacin U (more content not included)... Normal [facility] CNPNon 12-26-2023 CNPN Telephone (BRCRMN) ----- SULLY ENRIQUEZ ([id number]) 1990 F Date Time Provider Department 12/26/23 ADELE SUTTON BRCRWY During your visit today, we recorded the following information about you: Kobe Wallis 12/26/2023 3:25 PM Signed LOCALIZATION IMAGE REVIEW (Please do NOT submit until entire workup complete) (if > 3 reflectors to be placed in one breast, please review with radiologist) Sully Enriquez [id number] 1990 WORK- UP COMPLETE? Yes Order Placed [...] Mtz Tishka 01/07/2024 8:53 AM Signed ZAYDA lease out man placement by BOTH (coil + unspecified) clips [...] Status:Closed by EDGARD COLE on 12/29/23 Normal [facility] Color of Urine by AutoOrdere d By: Mario Glasgow on 12-26-2023 Color (U) Light-yellow Yellow [facility] Comment on above: Performed By: #### A DDONUAPLUS, CUU #### [address] Dipstick and Microscopicon 0 12-26-2023 Bacteria,Urine Rare Normal None Seen [facility] Comment on above: Performed By: #### A DDONUAPLUS, CUU #### [place] [address] [place] Bilirubin,Urine Negative Normal Negative [facility] Comment on above: Performed By: #### A DDONUAPLUS, CUU #### [place] [address] [place] Budding Yeast,Urine 2+ High None Seen [facility] Comment on above: Result Comment: PERF ORMED BY: [place] [address] PATHOLOGIST PROGRAM DEVELOPER LEV HERNÁNDEZ M.D. Performed By: #### A DDONUAPLUS, CUU #### [address] Glucose Ql (U) Normal Normal Normal [facility] Comment on above: Performed By: #### A DDONUAPLUS, CUU #### [address] Hyaline Casts,Urine None Normal 0-8 [facility] Comment on above: Performed By: #### A DDONUAPLUS, CUU #### [address] Mucus,Urine Rare Normal [facility] Comment on above: Performed By: #### A DDONUAPLUS, CUU #### [address] Nitrite,Urine Negative Normal Negative [facility] Comment on above: Performed By: #### A DDONUAPLUS, CUU #### [address] Occult Blood,Urine 1+ High Negative [facility] Comment on above: Result Comment: PERF ORMED BY: [place] [address] PATHOLOGIST PROGRAM DEVELOPER LEV HERNÁNDEZ M.D. Performed By: #### A DDONUAPLUS, CUU #### [address] Protein,Urine Negative Normal Negative [facility] Comment on above: Performed By: #### A DDONUAPLUS, CUU #### [address] RBC,Urine 10-19 High 0-4 [facility] Comment on above: Performed By: #### A DDONUAPLUS, CUU #### [address] Specificy [place],Urine 1.011 Normal 1.001-1.030 [facility] Comment on above: Performed By: #### A DDONUAPLUS, CUU #### [place] [address] [place] Squamous Epithelial Cell,Urine 1-2 Normal 0-2 [facility] Comment on above: Performed By: #### A DDONUAPLUS, CUU #### [facility] [address] Urobilinogen,Urine Normal Normal Normal [facility] Comment on above: Performed By: #### A DDONUAPLUS, CUU #### [facility] [address] WBC CLUMP, Urine Many High None Seen [facility] Comment on above: Performed By: #### A DDONUAPLUS, CUU #### [facility] [address] WBC,Urine Innumerable High 0-4 [facility] Comment on above: Performed By: #### A DDONUAPLUS, CUU #### [facility] [address] Epithelial cells.squamous [# /area] in Urine sediment by Automated countOrdered By: Mario Glasgow on 12-26-2023 Epithelial cells.squamous Auto (Urine sed) [#/Area] 1-2 [HPF] 0-2 [facility] Erythrocytes [#/area] in Uri ne sediment by Automated countOrdered By: Mario Glasgow on 12-26-2023 RBC Auto (Urine sed) [#/Area] 10-19 [HPF] High 0-4 [facility] Glucose [Mass/volume] in Uri ne by Test stripOrdered By: Mario Glasgow on 12-26-2023 Glucose Test strip (U) [Mass/Vol] Normal mg/dL Normal [facility] HISTORY PHYSICALon HISTORY PHYSICAL HNO ID: [id number] Author: ADELE SUTTON MD Service: ? Author Type: Physician Type: H&P Filed: 12/26/2023 15:52 Note Text: [facility] [place] Department of General Surgery [facility] REASON for TODAY'S VISIT: Patient presents with: New Patient REFERRAL: Referring Provider: Franchesca Man PCP: Keli Strickland NP, SEMICONDUCTOR LAB TECHNICIAN My clinic note and plan will be [...] - Self palpated RIGHT breast mass. 06/25/23 ([facility]) - diagnostic bilateral mammogram/US - diffuse heterogenous density. In the right breast at 8:00 approximately 4 to 5 cm from the nipple, is a hypoechoic avascular area that measures 2.0 x 1.6 x 1.1 cm. In the right upper outer quadrant of the breast at 2.8 x 1.0 x 2.8 cm lymph node is seen. There is no cortical thickening. 07/07/23 ([facility] - US guided CNB 8:00 4-5 CMFN 2 x 1 x 1.7 cm mass with unspecified clip placement - fibrocystic change. Concordant. 08/07/23 ([facility]) - RIGHT breast US - 8:00 4-5 CMFN 2 x 0.9 x 1.3 cm mass. 9:00 9 CMFN, no US abnormality to correlate with area of pain. 09/08/23 ([facility]) - Right breast at 8 o'clock, 4-5 cm from nipple, ultrasound-guided core biopsy with coil clip placement: Fibroadenoma.Concordant. BREAST AND DYNAMOMETER TUNER RELATED HISTORY: Prior biopsies: as above Prior surgeries: as above Implants: No Contraceptive use: Current: none Past: OCPs in 2011 at age 20 Exogenous hormone use: none Prior radiation: There is no history of Radiation Therapy. 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 Stays [...] HCl (ZANAF (more content not included)... Normal [facility] Hemoglobin Test strip Ql (U) Ordered By: Mario Glasgow on 12-26-2023 Hemoglobin Ql (U) 1+ High Negative [facility] Hyaline casts [#/area] in Ur ine sediment by Automated countOrdered By: Mario Glasgow on 12-26-2023 Hyaline casts Auto (Urine sed) [#/Area] None [LPF] 0-8 [facility] Ketones [Presence] in Urine by Test stripOrdered By: Mario Glasgow on 12-26-2023 Ketones Ql (U) Negative Negative [facility] Comment on above: Performed By: #### A DDONUAPLUS, CUU #### [facility] [address] Laboratory - Chemistry and C hemistry - challengeon 12-26-2023 Bilirubin Ql (U) Negative [facility] Glucose (U) [Mass/Vol] Negative [facility] Ketones Ql (U) Negative [facility] pH (U) 5.5 [pH] [facility] Specific gravity (U) [Rel density] 1.010 [facility] Urobilinogen (U) [Mass/Vol] 0.2 mg/dL [facility] Laboratory - Microbiology an d Antimicrobial susceptibilityOrdered By: Mario Glasgow on 12-26-2023 Bacteria identified Cx Nom (U) Escherichia coli Abnormal [facility] Laboratory - Specimen inform ationon 12-26-2023 Appearance (U) cloudy [facility] Color (U) yellow [facility] Laboratory - Urinalysison Leukocyte esterase Test strip Ql (U) small [facility] Nitrite Ql (U) Negative [facility] Protein Ql (U) Negative [facility] Leukocyte clumps [Presence] in Urine by AutomatedOrdered By: Mario Glasgow on 12-26-2023 Leukocyte clumps Auto Ql (U) Many [LPF] High None Seen [facility] Leukocyte esterase [Presence ] in Urine by Test stripOrdered By: Mario Glasgow on 12-26-2023 Leukocyte esterase Test strip Ql (U) 4+ High Negative [facility] Comment on above: Performed By: #### A DDEDITHUATOMÁS, CUU #### [facility] [address] Leukocytes [#/area] in Urine sediment by Automated countOrdered By: Mario Glasgow on 12-26-2023 WBC Auto (Urine sed) [#/Area] Innumerable [HPF] High 0-4 [facility] Mucus [Presence] in Urine by AutomatedOrdered By: Mario Glasgow on 12-26-2023 Mucus Auto Ql (U) Rare [LPF] [facility] Nitrite Test strip Ql (U)Ord ered By: Mario Glasgow on 12-26-2023 Nitrite Ql (U) Negative Negative [facility] No Panel Informationon 12-25 Urine Occult Blood Negative [facility] Protein Test strip (U) [Mass /Vol]Ordered By: Mario Glasgow on 12-26-2023 Protein (U) [Mass/Vol] Negative Negative [facility] Specific gravity Test strip (U) [Rel density]Ordered By: Mario Glasgow on 12-26-2023 Specific gravity (U) [Rel density] 1.011 1.001-1.030 [facility] Urine Cultureon 12-26-2023 Bacteria identified Cx Nom (U) ORGANISM: Escherichia coli (O:ESCCOL) [place] Count 75,000 Aerobic AUBREY Charge (NMIC56) SUSCEPTIBILITY [...] RESISTANT TO ALL B-LACTAM DRUGS. PERFORMED BY: [place] [address] PATHOLOGIST PROGRAM DEVELOPER LEV HERNÁNDEZ M.D. Normal [facility] Comment on above: Performed By: #### A JOSSUE, CUU ####[address] Urine appearanceOrdered By: Mario Glasgow on 12-26-2023 Appearance (U) Cloudy Abnormal Clear [facility] Comment on above: Performed By: #### A JOSSUE, CUU #### [address] Urobilinogen Test strip (U) [Mass/Vol]Ordered By: Mario Glasgow on 12-26-2023 Urobilinogen (U) [Mass/Vol] Normal mg/dL Normal [facility] Yeast.budding [Presence] in Urine by Computer assisted methodOrdered By: Mario Glasgow on 12-26-2023 Yeast.budding Computer assisted Ql (U) 2+ [HPF] High None Seen [facility] pH of Urine by Test stripOrd ered By: Mario Glasgow on 12-26-2023 pH (U) 6.0 [pH] 5.0-9.0 [facility] Comment on above: Performed By: #### A DDONUAPLUS, CUU #### [address] Basophils Auto (Bld) [#/Vol] on 12-17-2023 Basophils (Bld) [#/Vol] 0.0 10 3/uL 0.0-0.1 [facility] Basophils/100 WBC Auto (Bld) on 12-17-2023 Basophils/100 WBC (Bld) 0.4 % 0.2-2.0 F [facility] CONSULTon 12-17-2023 CONSULT SUBJECTIVE: Chief complaint: Back [...] Coordination: Finge (more content not included)... Normal [facility] EDNURSon 12-17-2023 EDNURS Call light, gown, wa rm blanket, pillow and pad provided. Spouse at bedside. Pts back appears mottled, spouse says it is from heating pad. Lead confirms Normal [facility] EDNURS Mode of arrival (squ ad #, walk in, police, etc): walk in w spouse Chief complaint(s): back pain, nausea,urinary incontinence Arrival Note (brief scenario, treatment RUBBER CURER, etc): pt by private auto from [place] er for low back pain continuous with worsening past 2 weeks no injury. 8/10 and sharp. Urinary incontinence started yesterday along with nausea and 2 episodes of vomiting. Pt denies numbness or tingling. Took zanaflex at home which helped her sleep. Had T3 at [place] which helped with the pain. Arrives of 20 g lock in left arm. Pt comes with paperwork and lab results. Pt denies having this pain previously Normal [facility] EDPROVon 12-17-2023 EDPROV HPI Chief Complaint Patient presents with ??? Back Pain X 2 weeks ??? Nausea With vomit x 2. Onset was yesterday. ??? Urinary Incontinence Onset yesterday Pt transferred here by EMS from [facility] accepted by ETHAN Olivas who is on for spine. The concern is for cauda equina. Pt with evaluation for back pain. Pt with evaluation at [place] 1-2 weeks prior. Pt with chiropractor care [...] hx hyst in past. Pt had labs frame runner and reviewed. CBC normal. ESR normal at [...] of plan of care/testing this am. [CS] [address] Olivas about this consult. He requests an MRI for this pt. I spoke with radiologist Dr Sanchez at [facility] to get approval for MRI to get called in. I spoke with case technician to get biological science technician fish called in for this imaging. [CS] 9160 Pt complaining about pain and nausea. Rn to reconcile meds. Pt with allergy to toradol. Pt with multiple narcotic and antispasm meds on home list. [CS] 7041 PT back from MRI. Pt with norco at home that hasn't taken and has nausea again now. Pt got 4 mg zofran at outside hospital. Will repeat this and then dose norco while waiting on MRI report. [CS] 2337 Pt now wanting to leave AMA. Prelim for MRI in for this pt. I spoke with Dr Olivas about this pt. He asks that I talk with pt about being seen by his PA/SEMICONDUCTOR LAB TECHNICIAN Jyotsna in about 10 minutes and he is on way to hospital and will review MRI imaging. [CS] 0654 I was back to talk with pt and visitor about my conversation with Dr Olivas. Male reports taht I thought that we were just coming here for the MRI and they were going to read it back in [place] . I explained process of transfer and [...] Acute ex (more content not included)... Normal [facility] Eosinophils/100 WBC Auto (Bl d)on 12-17-2023 Eosinophils/100 WBC (Bld) 1.2 % 0.9-7.0 [facility] Erythrocyte distribution wid th Auto (RBC) [Ratio]on 12-17-2023 Erythrocyte distribution width (RBC) [Ratio] 11.9 % 11.0-15.0 [facility] Estimated glomerular filtrat ion rate (GFR) non- Americanon 12-17-2023 GFR/1.73 sq M.predicted among non-blacks MDRD (S/P/Bld) [Vol rate/Area] mL/min/{1.73_m2} >=60 [facility] Hematocrit Auto (Bld) [Volum e fraction]on 12-17-2023 Hematocrit (Bld) [Volume fraction] 42.3 % 36.0-48.0 [facility] Hemoglobin [Mass/volume] in Bloodon 12-17-2023 Hemoglobin (Bld) [Mass/Vol] 14.4 g/dL 12.0-16.0 [facility] Laboratory - Chemistry and C hemistry - challengeon 12-17-2023 Calcium [Mass/Vol] 8.9 mg/dL 8.5-10.1 [facility] Chloride [Moles/Vol] 103 mmol/L 98-107 [facility] CO2 [Moles/Vol] 26.5 mmol/L 21.0-32.0 [facility] Creatinine [Mass/Vol] 0.94 mg/dL 0.55-1.02 [facility] GFR/1.73 sq M.predicted MDRD (S/P/Bld) [Vol rate/Area] mL/min/{1.73_m2} >=60 [facility] Glucose [Mass/Vol] 95 mg/dL 74-106 [facility] Potassium [Moles/Vol] 3.5 mmol/L 3.5-5.1 [facility] Sodium [Moles/Vol] 139 mmol/L 136-145 [facility] Urea nitrogen [Mass/Vol] 9.0 mg/dL 7.0-18.0 [facility] Urea nitrogen/Creatinine [Mass ratio] 9.6 mg/mg [facility] Laboratory - Hematology and Cell countson 12-17-2023 ESR (Bld) [Velocity] 17 mm/h <=20 [facility] Immature granulocytes/100 WBC (Bld) 0.3 % 0.0-0.5 [facility] Leukocytes [#/volume] correc armaan for nucleated erythrocytes in Blood by Automated counon 12-17-2023 WBC corrected for nucl RBC Auto (Bld) [#/Vol] 6.7 10 3/uL 4.0-11.0 [facility] Lymphocytes Auto (Bld) [#/Vo l]on 12-17-2023 Lymphocytes (Bld) [#/Vol] 2.7 10 3/uL 1.2-3.8 [facility] Lymphocytes/100 WBC Auto (Bl d)on 12-17-2023 Lymphocytes/100 WBC (Bld) 40.7 % 20.5-60.0 [facility] MCH Auto (RBC) [Entitic mass ]on 12-17-2023 MCH (RBC) [Entitic mass] 32.4 pg 26.7-34.0 [facility] MCHC Auto (RBC) [Mass/Vol]on 12-17-2023 MCHC (RBC) [Mass/Vol] 34.0 g/dL 29.9-35.2 [facility] MCV Auto (RBC) [Entitic vol] on 12-17-2023 MCV (RBC) [Entitic vol] 95.3 fL 81.0-99.0 F [facility] MR LUMBAR SPINE W AND WO CON [...] report. Electronically signed: Robert Rivera MD. Normal [facility] Monocytes Auto (Bld) [#/Vol] on 12-17-2023 Monocytes (Bld) [#/Vol] 0.5 10 3/uL 0.3-0.8 [facility] Monocytes/100 WBC Auto (Bld) on 12-17-2023 Monocytes/100 WBC (Bld) 7.2 % 1.7-12.0 F [facility] Neutrophils Auto (Bld) [#/Vo l]on 12-17-2023 Neutrophils (Bld) [#/Vol] 3.4 10 3/uL 1.4-6.5 [facility] Neutrophils/100 WBC Auto (Bl d)on 12-17-2023 Neutrophils/100 WBC (Bld) 50.2 % 43.0-75.0 [facility] No Panel Informationon 12-16 C-Reactive Protein, Quantitative <0.50 mg/dL <=0.50 [facility] Eosinophils # (Auto) 0.1 10 3/uL 0.0-0.7 [facility] Immature Granulocyte # (Auto) 0.02 10 3/uL 0.00-0.03 [facility] Platelet mean volume Auto (B ld) [Entitic vol]on 12-17-2023 Platelet mean volume (Bld) [Entitic vol] 10.7 fL 9.5-13.5 [facility] Platelets Auto (Bld) [#/Vol] on 12-17-2023 Platelets (Bld) [#/Vol] 218 10 3/uL 150-450 [facility] RBC Auto (Bld) [#/Vol]on RBC (Bld) [#/Vol] 4.44 10 6/uL 4.20-5.40 [facility] Serum or plasma anion gap de terminationon 12-17-2023 Anion gap [Moles/Vol] 13.0 mmol/L [facility] URINALYSIS WITH REFLEX CULTU REon 12-17-2023 BILIRUBIN, TOTAL PRESENCE IN URINE Negative Normal Negative [facility] Comment on above: Order Comment: Micro scopics not performed on urines with negative chemical reactions unless requested on original order. Performed By: #### L [id number] #### [facility] (BEAKER) [address] [place] [address] Clarity (U) Slightly Cloudy Abnormal Clear [facility] Comment on above: Order Comment: Micro scopics not performed on urines with negative chemical reactions unless requested on original order. Performed By: #### L [id number] #### [facility] (BEAKER) [address] [place] [address] Color (U) Yellow Normal Yellow [facility] Comment on above: Order Comment: Micro scopics not performed on urines with negative chemical reactions unless requested on original order. Performed By: #### L [id number] #### [facility] ([facility]ER) [address] [place] [address] Glucose (U) [Mass/Vol] Negative Normal Negative Un [facility] Comment on above: Order Comment: Micro scopics not performed on urines with negative chemical reactions unless requested on original order. Performed By: #### L [id number] #### [facility] ([facility]AKER) [address] [place] [address] HEMOGLOBIN PRESENCE IN URINE Negative Normal Negative [facility] Comment on above: Order Comment: Micro scopics not performed on urines with negative chemical reactions unless requested on original order. Performed By: #### L [id number] #### [facility] ([facility]) [address] [place] [address] Ketones Ql (U) Negative Normal Negative [facility] Comment on above: Order Comment: Micro scopics not performed on urines with negative chemical reactions unless requested on original order. Performed By: #### L [id number] #### [facility] ([facility]) [address] [place] [address] LEUKOCYTE ESTERASE PRESENCE IN URINE BY TEST STRIP Negative Normal Negative [facility] Comment on above: Order Comment: Micro scopics not performed on urines with negative chemical reactions unless requested on original order. Performed By: #### L [id number] #### [facility] ([facility]) [address] [place] [address] NITRITE PRESENCE IN URINE Negative Normal Negative [facility] Comment on above: Order Comment: Micro scopics not performed on urines with negative chemical reactions unless requested on original order. Performed By: #### L [id number] #### [facility] ([facility]) [address] [place] [address] pH (U) 5.0 [pH] Normal 5.0-8.0 [facility] Comment on above: Order Comment: Micro scopics not performed on urines with negative chemical reactions unless requested on original order. Performed By: #### L [id number] #### [facility] ([facility]) [address] [place] [address] Protein (U) [Mass/Vol] Negative Normal Negative [facility] Comment on above: Order Comment: Micro scopics not performed on urines with negative chemical reactions unless requested on original order. Performed By: #### L [id number] #### [facility] ([facility]) [address] [place] [address] Specific gravity (U) [Rel density] 1.016 Normal 1.015-1.020 [facility] Comment on above: Order Comment: Micro scopics not performed on urines with negative chemical reactions unless requested on original order. Performed By: #### L [id number] #### [facility] ([place]) [address] [place] [address] Kt 09-12-2023 CNPN Telephone (BRCRMN) ----- SULLY ENRIQUEZ ([id number]) 1990 F Date Time Provider Department 09/12/23 FRANCHESCA MAN [facility] During your visit today, we recorded the following information about you: Franchesca Man, PA-C 09/12/2023 10:15 AM Signed Spoke to [...] Dense breasts [R92.30] Order(s):CONSULT TO GENERAL SURGERY [3867] Order #: [id number]: 1 FUTURE Prescriptions as of 09/12/2023 - ALPRAZolam (XANAX) 1 mg tablet Take 1 mg by mouth twice daily as needed. Problem List As Of Date 09/12/2023 Noted Resolved Seizure (HCC) [R56.9] 03/06/2021 Headaches [R51.9] 03/07/2021 Encounter Status:Closed by FRANCHESCA MAN on 09/12/23 [facility] SULLY ENRIQUEZ ([id number]) 1990 F Date Time Provider Department 09/11/23 FRANCHESCA MAN [facility] During your visit today, we recorded [...] by: Maritza Rodney RT(R) - Fully Assessed Prescriptions as of 09/11/2023 - ALPRAZolam (XANAX) 1 mg tablet Take 1 mg by mouth twice daily as needed. Problem List As Of Date 09/11/2023 Noted Resolved Seizure (HCC) [R56.9] 03/06/2021 Headaches [R51.9] 03/07/2021 Encounter Status:Closed by FRANCHESCA MAN on 09/11/23 [facility] CNPN Telephone (RADMN) ----- SULLY ENRIQUEZ ([id number]) 1990 F Date Time Provider Department 09/11/23 [...] by: Maritza Rodney, RT(R) - Fully Assessed Reason for Visit: Results [95] Prescriptions as of 09/11/2023 - ALPRAZolam (XANAX) 1 mg tablet Take 1 mg by mouth twice daily as needed. Problem List As Of Date 09/11/2023 Noted Resolved Seizure (HCC) [R56.9] 03/06/2021 Headaches [R51.9] 03/07/2021 Encounter Status:Closed by LOU MILLER on 09/11/23 [facility] DBT Breast - right diagnosti c for implanton 09-08-2023 * * *Final Report* * * DATE OF EXAM: Sep 08 2023 2:52PM W 0629 - [facility] MARCO W DOMINIC RT / PROCEDURE REASON: multiple diagnoses * * * * Physician Interpretation * * * * RESULT: #[id number] - [facility] MAR[facility] [place] DOMINIC RT #[id number] - [facility] US BIOPSY BREAST RT ULTRASOUND GUIDED BIOPSY [...] Almanzar performed the entire procedure without an human resources office assistant. Audible Time Out Time: 1420 Procedure [...] for pathological analysis. DIVISION OF RADIOLOGY Provider, [facility] - 09/08/2023 * * *Final Report* * * DATE OF EXAM: Sep 08 2023 2:52PM MC 0629 - [facility] DIAG W DOMINIC RT / PROCEDURE REASON: multiple diagnoses * * * * Physician Interpretation * * * * RESULT: #[id number] - [facility] DIAG W DOMINIC RT #[id number] - [facility] US BIOPSY BREAST RT ULTRASOUND GUIDED BIOPSY [...] Almanzar performed the entire procedure without an human resources office assistant. Audible Time Out Time: 1420 Procedure [...] become available. Lea Almanzar M.D., jr/aracely:09/08/2023 16:24:26 Director Of Social Services(s): RT Mane(R)(M), [facility] Multiple national specialty organizations have released breast cancer screening guidelines for women at average risk for developing breast cancer - guidelines that are based on both evidence and opinion, yet differ on when to start and how often to screen for breast cancer. With representation from Breast Imaging, Internal Medicine, Women's Health, Family Medicine, and Medical/Surgical Oncology, the [facility] has carefully reviewed the data and reached [...] providers when to stop screening mammograms. Director Medical: Aracely Transcribe Date/Time: Sep 08 2023 2:52P Dictated by : LEA ALMANZAR MD This examination was interpreted and the report reviewed and electronically signed by: LEA ALMANZAR MD on Sep 08 2023 4:24PM [facility] SAJI DIAG W DOMINIC RTon 024 [facility] DIAG W DOMINIC RT * * *Final Report* * * * * * SEE BOTTOM OF REPORT FOR ADDENDED TEXT * * * DATE OF EXAM: Sep 08 2023 2:52PM MCW 0629 - SAJI DIAG W DOMINIC RT / PROCEDURE REASON: multiple diagnoses * * * * Physician Interpretation * * * * RESULT: FINAL REPORT #[id number] - [facility] DIAG W DOMINIC RT #[id number] - [facility] US BIOPSY BREAST RT ULTRASOUND GUIDED BIOPSY [...] Almanzar performed the entire procedure without an human resources office assistant. Audible Time Out Time: 1420 Procedure [...] surgical consultation. Lea Almanzar M.D., jr/aracely:09/11/2023 14:32:49 Director Of Social Services(s): RT Mane(R)(M), [facility] Multiple national specialty organizations have released breast cancer screening guidelines for women at average risk for developing breast cancer - guidelines that are based on both evidence and opinion, yet differ on when to start and how often to screen for breast cancer. With representation from Breast Imaging, Internal Medicine, Women's Health, Family Medicine, and Medical/Surgical Oncology, the [facility] has carefully reviewed the data and reached [...] providers when to stop screening mammograms. Director Medical: (more content not included)... Normal [facility] US BIOPSY BREAST RTon [facility] US BIOPSY BREAST RT * * *Final Repor t* * * * * * SEE BOTTOM OF REPORT FOR ADDENDED TEXT * * * DATE OF EXAM: Sep 08 2023 2:52PM [facility] 0598 - [facility] US BIOPSY BREAST RT / PROCEDURE REASON: multiple diagnoses * * * * Physician Interpretation * * * * RESULT: FINAL REPORT #[id number] - [facility] DIAG W DOMINIC RT #[id number] - [facility] US BIOPSY BREAST RT ULTRASOUND GUIDED BIOPSY [...] Almanzar performed the entire procedure without an human resources office assistant. Audible Time Out Time: 1420 Procedure [...] surgical consultation. Lea Almanzar M.D., jr/aracely:09/11/2023 14:32:49 Director Of Social Services(s): RT Mane(R)(M), [facility] [place] Multiple national specialty organizations have released breast cancer screening guidelines for women at average risk for developing breast cancer - guidelines that are based on both evidence and opinion, yet differ on when to start and how often to screen for breast cancer. With representation from Breast Imaging, Internal Medicine, Women's Health, Family Medicine, and Medical/Surgical Oncology, the [facility] has carefully reviewed the data and reached [...] mammograms. Transcriptio (more content not included)... Normal [facility] No Panel Informationon 09-07 IMPRESSION: ULTRASOU ND GUIDED BIOPSY Ultrasound guided biopsy of the 2 cm mass in the right breast at 8 o'clock 4 cm from the nipple with placement of a clip was successful with no apparent post procedure complications. Waiting for pathology results. A final report will be issued when these become available. Lea Almanzar M.D., jr/aracely:09/08/2023 16:24:26 Director Of Social Services(s): RT Mane(R)(M), [facility] Multiple national specialty organizations have released breast cancer screening guidelines for women at average risk for developing breast cancer - guidelines that are based on both evidence and opinion, yet differ on when to start and how often to screen for breast cancer. With representation from Breast Imaging, Internal Medicine, Women's Health, Family Medicine, and Medical/Surgical Oncology, the [facility] has carefully reviewed the data and reached [...] providers when to stop screening mammograms. Director Medical: Aracely Transcribe Date/Time: Sep 08 2023 2:52P Dictated by : LEA ALMANZAR MD This examination was interpreted and the report reviewed and electronically signed by: LEA ALMANZAR MD on Sep 08 2023 4:24PM [facility] DIVISION OF RADIOLOGY Radiology Study observation (narrative) [facility] No Panel InformationOrdered By: Ccf Provider on 09-08-2023 [facility] PT EDon 09-08-2023 PT ED HNO ID: [id number] Author: MARITZA RODNEY RT(R) Service: ? Author [...] MATERIAL: Homegoing instructions REFERRAL (RECOMMENDATION): None Normal [facility] SURGICAL PATHOLOGYon 024 CASE REPORT Normal [facility] Comment on above: Order Comment: Speci men Type: TISSUE SPECIMENOrdering Facility: [facility] Address: [address] [place] [address] Result Comment: Surg ica Pathology Report Case: [id number] Authorizing Provider: Lea Almanzar MD Collected: 09/08/2023 02:04 PM Ordering Location: Mammography Received: 09/08/2023 07:51 PM Pathologist: Pat Silveira MD Specimen: Breast, Right, Core Biopsy, 8:00 4-5cmfn 2cm mass ultrasound biopsy with hydromark open coil clip Performed By: #### S ####[facility] LABORATORYCLIA [id number] [address] OF [facility] LABCLIA [id number] [address] FINAL DIAGNOSIS Normal [facility] Comment on above: Order Comment: Carlos Ai mia Type: TISSUE SPECIMENOrdering Facility: [facility] Address: [address] [place] [address] Result Comment: A. R ight breast at 8 o'clock, 4-5 cm from nipple, ultrasound-guided core biopsy with coil clip placement: - Fibroadenoma. Performed By: #### S ####[facility]ORATORYCLIA [id number] [address] LABCLIA [id number] [address] [place] FINAL PERFORMING LAB Normal [facility] Comment on above: Order Comment: Speci men Type: TISSUE SPECIMENOrdering Facility: [facility] Address: [address] [place] [address] Result Comment: Diag nostic interpretation performed at [facility], [address] [place] [address] CLIA# [id number] Financing Analyst: Columba Villasenor M.D. Performed By: #### S ####MARYMO[facility]IL[facility] LABORATORYIA [id number] [address] LABCLIA [id number] [address] GROSS DESCRIPTION Normal [facility] Comment on above: Order Comment: Speci men Type: TISSUE SPECIMENOrdering Facility: [facility] Address: [address] [place] [address] Result Comment: A. B reast, Right, Core [...] in one cassette. Performed By: #### S ####[facility]ORATORYCLIA [id number] [address] LABCLIA [id number] [address] [place] US Guidance for biopsy of Br braden - aaliyah 09-08-2023 * * *Final Report* * * DATE OF EXAM: Sep 08 2023 2:52PM [facility] 0598 - [facility] US BIOPSY BREAST RT / PROCEDURE REASON: multiple diagnoses * * * * Physician Interpretation * * * * RESULT: #[id number] - [facility] MARCO ALFARO RT #[id number] - [facility] US BIOPSY BREAST RT ULTRASOUND GUIDED BIOPSY [...] Almanzar performed the entire procedure without an human resources office assistant. Audible Time Out Time: 1420 Procedure [...] for pathological analysis. DIVISION OF RADIOLOGY Provider, [facility] - 09/08/2023 * * *Final Report* * * DATE OF EXAM: Sep 08 2023 2:52PM [facility] 0598 - [facility] US BIOPSY BREAST RT / PROCEDURE REASON: multiple diagnoses * * * * Physician Interpretation * * * * RESULT: #[id number] - [facility] DIAG W DOMINIC RT #[id number] - [facility] US BIOPSY BREAST RT ULTRASOUND GUIDED BIOPSY [...] Almanzar performed the entire procedure without an human resources office assistant. Audible Time Out Time: 1420 Procedure [...] become available. Lea Almanzar M.D., jr/aracely:09/08/2023 16:24:26 Director Of Social Services(s): RT Mane(R)(M), [facility] Multiple national specialty organizations have released breast cancer screening guidelines for women at average risk for developing breast cancer - guidelines that are based on both evidence and opinion, yet differ on when to start and how often to screen for breast cancer. With representation from Breast Imaging, Internal Medicine, Women's Health, Family Medicine, and Medical/Surgical Oncology, the [facility] has carefully reviewed the data and reached [...] providers when to stop screening mammograms. Director Medical: Aracely Transcribe Date/Time: Sep 08 2023 2:52P Dictated by : LEA ALMANZAR MD This examination was interpreted and the report reviewed and electronically signed by: LEA ALMANZAR MD on Sep 08 2023 4:24PM [facility] Laboratory - Chemistry and C hemistry - challengeon 09-02-2023 Free T4 [Mass/Vol] 0.98 ng/dL 0.76-1.46 [facility] TSH Qn 3.388 m[IU]/L 0.358-3.740 [facility] No Panel Informationon 09-01 Free Triiodothyronine 2.79 pg/mL 2.18-3.98 [facility] CNPNon 08-11-2023 CNPN Telephone (BRMN) ----- SULLY ENRIQUEZ ([id number]) 1990 F Date Time Provider Department 08/11/23 FRANCHESCA MAN [facility] During your visit today, we recorded [...] Status:Closed by FRANCHESCA MAN on 08/11/23 Normal [facility] CNOVon 08-07-2023 CNOV Office Visit (BRCRMN ) ----- SULLY ENRIQUEZ ([id number]) 1990 F Date Time Provider Department 08/07/23 10:30 AM FRANCHESCA MAN BRCRMN During your visit today, we recorded the following information about you: Weight Height 105.2 kg 1.651 m Franchesca Man PA-C 08/07/2023 2:26 PM Signed MEDICAL BREAST PATIENT NAME: Sully Enriquez 08/07/2023 REFERRAL: She is self referred for an opinion regarding right breast biopsy. HISTORY of PRESENT ILLNESS: Sully Enriquez is a 33 year old year old premenopausal woman who presents to the [facility] [place] today for second opinion of right breast [...] for her breast related issues at [facility] with care as follows: 06/25/23: Diagnostic bilateral DBT and US at [facility]): - RIGHT breast 8oclock 4-5cmfn [...] (more content not included)... Normal [facility] Signix BREAST Likelii RTon 08-06 [facility] Signix BREAST Likelii RT * * *Final Report* * * DATE OF EXAM: Aug 07 2023 12:08PM [facility] 0594 - [facility] UCampus RT / PROCEDURE REASON: multiple diagnoses * * * * Physician Interpretation * * * * RESULT: #[id number] - [facility] UCampus RT LIMITED ULTRASOUND OF RIGHT BREAST: 08/07/2023 [...] breast cancer. Janes Winston M.D. ns/:08/07/2023 13:24:03 Director Of Social Services(s): HAWA Shannon)(M), [facility] Ultrasound BI-RADS: 2 Benign finding Multiple national specialty organizations have released breast cancer screening guidelines for women at average risk for developing breast cancer - guidelines that are based on both evidence and opinion, yet differ on when to start and how often to screen for breast cancer. With representation from Breast Imaging, Internal Medicine, [facility], Family Medicine, and Medical/Surgical Oncology, the [facility] has carefully reviewed the data and reached [...] providers when to stop screening mammograms. Director Medical: Aracely Transcribe Date/Time: Aug 07 2023 11:56A Dictated by : JANES WINSTON MD This examination was interpreted and the report reviewed and electronically signed by: JANES WINSTON MD on Aug 07 2023 1:24PM EST [id number] Normal [facility] US Breast - right limitedon 08-07-2023 [facility] CNPMagaly [facility] ----- SULLY ENRIQUEZ ([id number]) 1990 F Date Time Provider Department 07/30/23 [...] a second opinion. She was seen at [facility] in [place] I will reach out to them to retrieve any information and imaging needed for her appointment 08/07/23 with Franchesca FINNEGAN in [facility] contact number is [phone]. Kenia Peters MA Allergies As of Date: [...] RN - Fully Assessed Prescriptions as of 07/30/2023 - ALPRAZolam (XANAX) 1 mg tablet Take 1 mg by mouth twice daily as needed. Problem List As Of Date 07/30/2023 Noted Resolved Seizure (HCC) [R56.9] 03/06/2021 Headaches [R51.9] 03/07/2021 Encounter Status:Closed by KENIA PETERS on 07/30/23 Normal [facility] Basophils Auto (Bld) [#/Vol] on 07-25-2023 Basophils (Bld) [#/Vol] 0.0 10 3/uL 0.0-0.1 [facility] Basophils/100 WBC Auto (Bld) on 07-25-2023 Basophils/100 WBC (Bld) 0.3 % 0.2-2.0 [facility] CNPNon 07-25-2023 CNPN Telephone (BRCRBD) ----- ZOESULLY ([id number]) 1990 F Date Time Provider Department 07/25/23 FRANCHESCA MAN During your visit today, we recorded the following information about you: Kenia Peters MA 07/25/2023 12:59 PM Signed Called patient to discuss her upcoming appointment with Franchesca Man in the breast center. I left a message asking patient to call me back @[phone]. Kenia Peters MA Allergies As of Date: [...] Status:Closed by KENIA PETERS on 07/25/23 Normal [facility] Eosinophils/100 WBC Auto (Bl d)on 07-25-2023 Eosinophils/100 WBC (Bld) 0.5 % 0.9-7.0 [facility] Erythrocyte distribution wid th Auto (RBC) [Ratio]on 07-25-2023 Erythrocyte distribution width (RBC) [Ratio] 12.0 % 11.0-15.0 [facility] Estimated glomerular filtrat ion rate (GFR) non- Americanon 07-25-2023 GFR/1.73 sq M.predicted among non-blacks MDRD (S/P/Bld) [Vol rate/Area] mL/min/{1.73_m2} >=60 [facility] Globulin Calc (S) [Mass/Vol] on 07-25-2023 Globulin (S) [Mass/Vol] 3.4 g/dL F [facility] HCG ( test) IA.rapi d Ql (U)on 07-25-2023 Beta HCG ( test) Ql (U) Negative NEGATIVE [facility] Hematocrit Auto (Bld) [Volum e fraction]on 07-25-2023 Hematocrit (Bld) [Volume fraction] 44.2 % 36.0-48.0 [facility] Hemoglobin [Mass/volume] in Bloodon 07-25-2023 Hemoglobin (Bld) [Mass/Vol] 14.5 g/dL 12.0-16.0 [facility] Laboratory - Chemistry and C hemistry - challengeon 07-25-2023 Albumin [Mass/Vol] 4.0 g/dL 3.4-5.0 [facility] ALP [Catalytic activity/Vol] 61 U/L 46-116 [facility] ALT [Catalytic activity/Vol] 25 U/L 14-59 [facility] AST [Catalytic activity/Vol] 13 U/L 15-37 [facility] Bilirubin [Mass/Vol] 0.6 mg/dL 0.2-1.0 [facility] Calcium [Mass/Vol] 8.8 mg/dL 8.5-10.1 [facility] Chloride [Moles/Vol] 103 mmol/L 98-107 [facility] CO2 [Moles/Vol] 24.0 mmol/L 21.0-32.0 [facility] Creatinine [Mass/Vol] 0.88 mg/dL 0.55-1.02 [facility] GFR/1.73 sq M.predicted MDRD (S/P/Bld) [Vol rate/Area] mL/min/{1.73_m2} >=60 [facility] Glucose [Mass/Vol] 99 mg/dL 74-106 [facility] Lipase [Catalytic activity/Vol] 23.0 U/L 16.0-77.0 [facility] Potassium [Moles/Vol] 3.9 mmol/L 3.5-5.1 [facility] Protein [Mass/Vol] 7.4 g/dL 6.4-8.2 [facility] Sodium [Moles/Vol] 138 mmol/L 136-145 [facility] Urea nitrogen [Mass/Vol] 10.0 mg/dL 7.0-18.0 [facility] Urea nitrogen/Creatinine [Mass ratio] 11.4 mg/mg [facility] Laboratory - Hematology and Cell countson 07-25-2023 Immature granulocytes/100 WBC (Bld) 0.3 % 0.0-0.5 [facility] Laboratory - Microbiology an d Antimicrobial susceptibilityon 07-25-2023 SARS-CoV-2 (COVID-19) RNA AZ+probe Ql (Unsp spec) Negative NEGATIVE [facility] Comment on above: This test has [...] Auto (Bld) [#/Vol] 11.0 10 3/uL 4.0-11.0 [facility] Lymphocytes Auto (Bld) [#/Vo l]on 07-25-2023 Lymphocytes (Bld) [#/Vol] 0.8 10 3/uL 1.2-3.8 [facility] Lymphocytes/100 WBC Auto (Bl d)on 07-25-2023 Lymphocytes/100 WBC (Bld) 7.5 % 20.5-60.0 [facility] MCH Auto (RBC) [Entitic mass ]on 07-25-2023 MCH (RBC) [Entitic mass] 31.6 pg 26.7-34.0 [facility] MCHC Auto (RBC) [Mass/Vol]on 07-25-2023 MCHC (RBC) [Mass/Vol] 32.8 g/dL 29.9-35.2 [facility] MCV Auto (RBC) [Entitic vol] on 07-25-2023 MCV (RBC) [Entitic vol] 96.3 fL 81.0-99.0 F [facility] Monocytes Auto (Bld) [#/Vol] on 07-25-2023 Monocytes (Bld) [#/Vol] 0.4 10 3/uL 0.3-0.8 [facility] Monocytes/100 WBC Auto (Bld) on 07-25-2023 Monocytes/100 WBC (Bld) 3.9 % 1.7-12.0 F [facility] Neutrophils Auto (Bld) [#/Vo l]on 07-25-2023 Neutrophils (Bld) [#/Vol] 9.7 10 3/uL 1.4-6.5 [facility] Neutrophils/100 WBC Auto (Bl d)on 07-25-2023 Neutrophils/100 WBC (Bld) 87.5 % 43.0-75.0 [facility] No Panel Informationon 07-24 Bedside Influenza Type A Antigen Negative [facility] Comment on above: Negative for Flu A p rotein antigen. Infection due to Flu Acannot be ruled out. Flu A antigen in the sample may bebelow the detection limit of the test. Bedside Influenza Type B Antigen Negative [facility] Comment on above: Negative for Flu B p rotein antigen. Infection due to Flu Bcannot be ruled out. Flu B antigen in the sample may bebelow the detection limit of the test. Eosinophils # (Auto) 0.1 10 3/uL 0.0-0.7 [facility] Immature Granulocyte # (Auto) 0.03 10 3/uL 0.00-0.03 [facility] Platelet mean volume Auto (B ld) [Entitic vol]on 07-25-2023 Platelet mean volume (Bld) [Entitic vol] 10.4 fL 9.5-13.5 [facility] Platelets Auto (Bld) [#/Vol] on 07-25-2023 Platelets (Bld) [#/Vol] 194 10 3/uL 150-450 [facility] RBC Auto (Bld) [#/Vol]on RBC (Bld) [#/Vol] 4.59 10 6/uL 4.20-5.40 [facility] Serum or plasma albumin/glob ulin mass ratioon 07-25-2023 Albumin/Globulin [Mass ratio] 1.2 {ratio} [facility] Serum or plasma anion gap de terminationon 07-25-2023 Anion gap [Moles/Vol] 14.9 mmol/L [facility] Mitchel 07-07-2023 L Specimen: Received: 07/07/23 Status: SOUDaisy Req Num: [id number] Spec Type: Surgical Subm Dr: Pablo Lindo II, MD Tissues: A BREAST CORE NO CALCS (RT BREAST TISSUE) Procedures: HE/2, Gross/Micro L4, AE1-AE3, CK5 6 Age/ Patient Sex Location Account Attending Physician Sully Enriquez 33/F WIUL [id number] Lucero Pimentel DO SPEC NUM: [id number] RECD: 07/07/23 STATUS: SOUT REQ NUM: [id number] MEGAN: 07/07/[address]: Pablo Lindo II, MD ENTERED: 07/07/[address]: Lucero Pimentel DO SPEC TYPE: Surgical DEPT: S ORDERED: [...] Time: 0.08 Formalin Fixation Time: 6.62 Specimen: [id number] Received: 07/07/23 Status: ALEJANDRA Brennancristopher Num: [id number] Spec Type: Surgical Subm Dr: Pablo Lindo II, MD Tissues: A BREAST CORE NO CALCS (RT BREAST TISSUE) Procedures: HE/2, Gross/Micro L4, AE1-AE3, CK5 6 Patient: Sully Enriquez [id number] (Continued) Specimen: Received: 07/07/23 (Continued) Signed (signature on file) Mireya Garcia MD 07/09/231648 Specimen: Received: 07/07/23 Status: ALEJANDRA Marvin Num: [id number] Spec Type: Surgical Subm Dr: Pablo Lindo II, MD Tissues: A BREAST CORE NO CALCS (RT BREAST TISSUE) Procedures: HE/2, Gross/Micro L4, AE1-AE3, CK5 6 Patient: Sully Enriquez [id number] (Continued) Specimen: [id number] Received: 07/07/23 (Continued) CPT Codes 69649 Specimen: Received: 07/07/23 Status: ALEJANDRA Marvin Num: [id number] Spec Type: Surgical Subm Dr: Pablo Lindo II, MD Tissues: A BREAST CORE NO CALCS (RT BREAST TISSUE) Procedures: HE/2, Gross/Micro L4, AE1-AE3, CK5 6 Patient: Sully Enriquez [id number] (Continued) Signed (signature on file) Mireya Garcia MD 07/09/23 1649 Normal [facility] US breast ndl core biopsy RT on 07-07-2023 US breast ndl core biopsy RT [facility] [address] [place], [place] [id number] Ultrasound Report Signed Patient: Sully Enriquez MR#: [id number] : 1990 Acct:[id number] Age/Sex: 33 / F ADM Date: 07/07/23 Loc: [facility] Room: Type: [facility] Attending Dr: Lucero Pimentel DO Ordering Provider: Lucero Pimentel DO Date of Service: 07/07/23 US/US breast ndl core biopsy RT: R92.8 ([id number]) MM/MM post biopsy RT w/CAD: POST U/S BX WITH CLIP Copies to: Lucero Pimentel DO ADDENDUM Final pathology: Fibrocystic change. No [...] of the right breast was performed by hyperbaric technologist as well as myself. At the [...] 8:00 position were performed using a 12-gauge Socitive vacuum-assisted core biopsy needle under ultrasound guidance. [...] Pablo Lindo M.D.07/07/2023 11:55 AM Tech: Theresa Wallis; Radha Ruiz Transcribed By: 07/07/23 1239 Dictated By: Pablo Lindo II, MD 07/07/23 1155 Signed By: 07/10/23 0836 Normal [facility] BI MAMMOGRAM DIAGNOSTIC DOMINIC SYNTHESIS BILATERALon 06-25-2023 [...] IS VERY IMPORTANT TO YOUR HEALTH. THE [employer] GUIDELINES RECOMMEND THAT WOMEN 40 YEARS OF AGE AND OLDER SHOULD HAVE A MAMMOGRAM EVERY YEAR. A REMINDER LETTER WILL BE SENT AT THE APPROPRIATE TIME. ELECTRONICALLY SIGNED BY: Sam Fox, Abnormal Not Available BI US BREAST COMPLETE [...] IS VERY IMPORTANT TO YOUR HEALTH. THE [employer] GUIDELINES RECOMMEND THAT WOMEN 40 YEARS OF AGE AND OLDER SHOULD HAVE A MAMMOGRAM EVERY YEAR. A REMINDER LETTER WILL BE SENT AT THE APPROPRIATE TIME. ELECTRONICALLY SIGNED BY: Sam Fox, DO Abnormal Not Available Alanine aminotransferase [En zymatic activity/volume] in Serum or PlasmaOrdered By: Bhanu Alvarez on 06-03-2023 ALT [Catalytic activity/Vol] 19 U/L Normal 7-52 [facility] Comment on above: Order Comment: Hemol yzed-requested redraw @ 1442. MLG Performed By: #### C MP, PRL, CBC ####[facility] [address] [place] [id number] [facility] Albumin [Mass/volume] in Ser um or Plasma by Bromocresol green (BCG) dye binding methoOrdered By: Bhanu Alvarez on 06-03-2023 Albumin BCG dye [Mass/Vol] 4.6 g/dL 3.5-5.7 [facility] Alkaline phosphatase [Enzyma tic activity/volume] in Serum or PlasmaOrdered By: Bhanu Alvarez on 06-03-2023 ALP [Catalytic activity/Vol] 46 U/L Normal 34-104 [facility] Comment on above: Order Comment: Hemol yzed-requested redraw @ 1442. MLG Performed By: #### C MP, PRL, CBC ####[facility] [id number] [place] [id number] [facility] Amphetamine Screen Ql (U)Ord ered By: Bhanu Alvarez on 06-03-2023 Amphetamines Ql (U) Negative Negative [facility] Aspartate aminotransferase [ Enzymatic activity/volume] in Serum or PlasmaOrdered By: Bhanu Alvarez on 06-03-2023 AST [Catalytic activity/Vol] 14 U/L Normal 13-39 [facility] Comment on above: Order Comment: Hemol yzed-requested redraw @ 1442. MLG Performed By: #### C MP, PRL, CBC ####[address] Automated basophil %Ordered By: Bhanu Alvarez on 06-03-2023 Basophils/100 WBC (Bld) 0.6 % Normal . [facility] Comment on above: Performed By: #### C MP, PRL, CBC ####[address] Automated basophil countOrde red By: Bhanu Alvarez on 06-03-2023 Basophils (Bld) [#/Vol] 0.0 10*3/uL Normal 0.0-0.2 [facility] Comment on above: Result Comment: PERF ORMED BY: [facility] [address] [place] [address] PATHOLOGIST PROGRAM DEVELOPER LEV HERNÁNDEZ M.D. Performed By: #### C MP, PRL, CBC ####[address] Automated blood monocyte cou ntOrdered By: Bhanu Alvarez on 06-03-2023 Monocytes (Bld) [#/Vol] 0.4 10*3/uL Normal 0.0-0.8 [facility] Comment on above: Performed By: #### C MP, PRL, CBC ####[address] Automated eosinophil %Ordere d By: Bhanu Alvarez on 06-03-2023 Eosinophils/100 WBC (Bld) 2.1 % Normal . [facility] Comment on above: Performed By: #### C MP, PRL, CBC ####[address] Automated eosinophil countOr dered By: Bhanu Alvarez on 06-03-2023 Eosinophils (Bld) [#/Vol] 0.1 10*3/uL Normal 0.0-0.45 [facility] Comment on above: Performed By: #### C MP, PRL, CBC ####[facility] [id number] Automated monocyte %Ordered By: Bhanu Alvarez on 06-03-2023 Monocytes/100 WBC (Bld) 6.5 % Normal . [facility] Comment on above: Performed By: #### C MP, PRL, CBC ####[facility] [id number] Automated neutrophil %Ordere d By: Bhanu Alvarez on 06-03-2023 Neutrophils/100 WBC (Bld) 52.8 % Normal . [facility] Comment on above: Performed By: #### C MP, PRL, CBC ####[facility] [id number] Automated urine color determ inationOrdered By: Bhanu Alvarez on 06-03-2023 Color (U) Yellow Normal Yellow [facility] Comment on above: Order Comment: Name Collection Type:: Clean-Voided Midstream Performed By: #### U A, UHCG, URDS #### [facility] [address] Barbiturates [Presence] in U rine by Screen methodOrdered By: Bhanu Alvarez on 06-03-2023 Barbiturates Screen Ql (U) Negative Negative [facility] Benzodiazepines Screen Ql (U )Ordered By: Bhanu Alvarez on 06-03-2023 Benzodiazepines Ql (U) Positive Negative [facility] Benzoylecgonine [Presence] i n Urine by Screen methodOrdered By: Bhanu Alvarez on 06-03-2023 Benzoylecgonine Screen Ql (U) Negative Negative [facility] Bilirubin Test strip Ql (U)O rdered By: Bhanu Alvarez on 06-03-2023 Bilirubin Ql (U) Negative Negative [facility] Bilirubin.total [Mass/volume ] in Serum or PlasmaOrdered By: Bhanu Alvarez on 06-03-2023 Bilirubin [Mass/Vol] 0.4 mg/dL Normal 0.3-1.0 [facility] Comment on above: Order Comment: Hemol yzed-requested redraw @ 1442. MLG Performed By: #### C MP, PRL, CBC ####[facility] [id number] [place] [id number] [facility] CT angio chest PE protocolon 06-03-2023 CT angio chest PE protocol [facility] [place] [address] [place] [id number] Scan Report Signed Patient: Sully Enriquez MR#: [id number] : 1990 Acct:[id number] Age/Sex: 33 / F ADM Date: 06/03/23 Loc: ER Room: Type: [place] ER Attending Dr: Copies to: Bhanu Alvarez [...] PROCESS. Impression dictated by: Luis Turner Jr., D.OHernandez06/03/2023 5:48 PM Dictation Location: [place] [address] Transcribed By: [facility] 06/03/23 174 Dictated By: Luis Turner Jr, DO 06/03/231746 Signed By: 06/03/231747 Normal [facility] Calcium [Mass/volume] in Ser um or PlasmaOrdered By: Bhanu Alvarez on 06-03-2023 Calcium [Mass/Vol] 9.5 mg/dL Normal 8.6-10.3 [facility] Comment on above: Order Comment: Hemol yzed-requested redraw @ 1442. MLG Performed By: #### C MP, PRL, CBC ####[place] [id number] Cannabinoids [Presence] in U rine by Screen methodOrdered By: Bhanu Alvarez on 06-03-2023 Cannabinoids Screen Ql (U) Negative Negative [facility] Comment on above: These are unconfirme d results and should not be used for legal purposes. Drug Cut-Off Concentration: AMPH 1000 ng/mL WILIAN 200 ng/mL LESLY 200 ng/mL COCM 300 ng/mL OP 300 ng/mL PCP 25 ng/mL THC 20 ng/mL Carbon dioxide, total [Moles /volume] in Serum or PlasmaOrdered By: Bhanu Alvarez on 06-03-2023 CO2 [Moles/Vol] 22.4 mmol/L Normal 21.0-31.0 [facility] Comment on above: Order Comment: Hemol yzed-requested redraw @ 1442. MLG Performed By: #### C MP, PRL, CBC ####[address] Chloride [Moles/volume] in S juan carlos or PlasmaOrdered By: Bhanu Alvarez on 06-03-2023 Chloride [Moles/Vol] 108 mmol/L High 98-107 [facility] Comment on above: Order Comment: Hemol yzed-requested redraw @ 1442. MLG Performed By: #### C MP, PRL, CBC ####[place] [address] [place] [id number] [facility] Complete Blood Count Auto Di ffon 06-03-2023 Mean Corpuscular HGB Conc 33.9 g/dL Normal 32.0-35.0 [facility] Comment on above: Performed By: #### C MP, PRL, CBC ####[place] [id number] [facility] Monocytes/100 WBC (Bld) 18.41 % Normal 0.00-20.00 [facility] Comment on above: Performed By: #### C MP, PRL, CBC ####[address] NRBC% 0.0 /100{WBC} Normal 0-0.5 [facility] Comment on above: Performed By: #### C MP, PRL, CBC ####[place] [id number] [facility] Comprehensive Metabolic Pane mitchel 06-03-2023 Albumin [Mass/Vol] 4.6 g/dL Normal 3.5-5.7 [facility] Comment on above: Order Comment: Hemol yzed-requested redraw @ 1442. MLG Performed By: #### C MP, PRL, CBC ####[address] Creatinine Clr Calc Pharmacy 110.22 Normal [facility] Comment on above: Order Comment: Hemol yzed-requested redraw @ 1442. MLG Performed By: #### C MP, PRL, CBC ####[address] GFR/1.73 sq M.predicted MDRD (S/P/Bld) [Vol rate/Area] mL/min/{1.73_m2} Normal [facility] Comment on above: Order Comment: Hemol yzed-requested redraw @ 1442. MLG Performed By: #### C MP, PRL, CBC ####[address] Creatinine [Mass/volume] in Serum or PlasmaOrdered By: Bhanu Alvarez on 06-03-2023 Creatinine [Mass/Vol] 0.86 mg/dL Normal 0.60-1.20 [facility] Comment on above: Order Comment: Hemol yzed-requested redraw @ 1442. MLG Performed By: #### C MP, PRL, CBC ####[place] [id number] [facility] D-Dimer High Sensitivityon 0 06-03-2023 D-Dimer High Sensitivity 282 ng/mL High 0-243 [facility] Comment on above: Result Comment: [...] coagulation studies. Please contact the laboratory at [phone] for redraw instructions. PERFORMED BY: [place] [address] PATHOLOGIST PROGRAM DEVELOPER LEV HERNÁNDEZ M.D. Performed By: #### D DIMER #### [address] Drug Screen,Urineon 06-03-19 Amphetamine Screen,Urine Negative Normal Negative [facility] Comment on above: Performed By: #### U A, UHCG, URDS #### [address] Barbiturate Screen,Urine Negative Normal Negative [facility] Comment on above: Performed By: #### U A, UHCG, URDS #### [place] [address] [place] Benzodiazepines Screen,Urine Positive High Negative [facility] Comment on above: Performed By: #### U A, UHCG, URDS #### [address] Cannabinoid Screen,Urine Negative Normal Negative [facility] Comment on above: Result Comment: Thes e are unconfirmed results and should not be used for legal purposes. Drug Cut-Off Concentration: AMPH 1000 ng/mL WILIAN 200 ng/mL LESLY 200 ng/mL COCM 300 ng/mL OP 300 ng/mL PCP 25 ng/mL THC 20 ng/mL PERFORMED BY: [place] [address] PATHOLOGIST PROGRAM DEVELOPER LEV HERNÁNDEZ M.D. Performed By: #### U A, UHCG, URDS #### [address] Cocaine Screen,Urine Negative Normal Negative [facility] Comment on above: Performed By: #### U A, UHCG, URDS #### [address] Opiate Screen,Urine Negative Normal Negative [facility] Comment on above: Performed By: #### U A, UHCG, URDS #### [address] Phencyclidine Screen,Urine Negative Normal Negative [facility] Comment on above: Performed By: #### U A, UHCG, URDS #### [address] ECG 12 lead ECGon 06-03-2023 ECG 12 lead ECG [facility] [place] [address] [place] [address] Electrocardiograph Report Signed Patient: Sully Enriquez MR#: [id number] : 1990 Acct:[id number] Age/Sex: 33 / F ADM Date: 06/03/23 Loc: ER Room: Type: [place] [facility] Attending Dr: Ordering Provider: Bhanu Alvarez [...] Electronically Signed By:JOSE CADE DO Transcribed By: KARLA Signed By Jose Cade DO 1547 Normal [facility] ECG 12 lead ECG [facility] [place] [address] [place] [address] Electrocardiograph Report Signed Patient: Sully Enriquez MR#: [id number] : 1990 Acct:[id number] Age/Sex: 33 / F ADM Date: 06/03/23 Loc: ER Room: Type: [place] ER Attending Dr: Ordering Provider: Bhanu Alvarez [...] Electronically Signed By:JOSE CADE DO Transcribed By: KARLA Signed By Jose Cade DO 1547 Normal [facility] Erythrocyte distribution wid th [Ratio] by Automated countOrdered By: Bhanu Alvarez on 06-03-2023 Erythrocyte distribution width (RBC) [Ratio] 12.5 % Normal 11.9-15.3 [facility] Comment on above: Performed By: #### C MP, PRL, CBC ####[facility] [id number] Erythrocytes [#/volume] in B lood by Automated countOrdered By: Bhanu Alvarez on 06-03-2023 RBC (Bld) [#/Vol] 4.42 10*6/uL Normal 3.60-5.00 [facility] Comment on above: Performed By: #### C MP, PRL, CBC ####[facility] [id number] [place] [id number] [facility] Fibrin D-dimer [Presence] in Platelet poor plasma by Latex agglutinationOrdered By: Bhanu Alvarez on 06-03-2023 Fibrin D-dimer LA Ql (PPP) 282 ng/mL 0-243 [facility] Comment on above: The reference range [...] coagulation studies. Please contact the laboratory at [phone] for redraw instructions. Glucose [Mass/volume] in Ser um or PlasmaOrdered By: Bhanu Alvarez on 06-03-2023 Glucose [Mass/Vol] 102 mg/dL High 70-100 [facility] Comment on above: ADA recommended refe rence rangeRandom Glucose Reference Range is dependent on time and content of last meal. Glucose of more than 200 mg/dL in a nonstressed, ambulatory subject supports the diagnosis of Diabetes Mellitus. Order Comment: Hemol yzed-requested redraw @ 1442. MLG Result Comment: [place] Glucose Reference Range is dependent on time and content of last meal. Glucose of more than 200 mg/dL in a nonstressed, ambulatory subject supports the diagnosis of Diabetes Mellitus. ADA recommended reference range Performed By: #### C MP, PRL, CBC ####[facility] [id number] [place] [id number] [facility] HCG ( test) IA.rapi d Ql (U)Ordered By: Bhanu Alvarez on 06-03-2023 HCG ( test) Ql (U) Negative [facility] HCG,Urineon 06-03-2023 Beta HCG ( test) Ql (U) Negative Normal [facility] Comment on above: Order Comment: Name Collection Type:: Clean-Voided Midstream Result Comment: PERF ORMED BY: [place] [address] PATHOLOGIST PROGRAM DEVELOPER LEV HERNÁNDEZ M.D. Performed By: #### U A, UHCG, URDS #### [address] Hematocrit [Volume Fraction] of Blood by Automated countOrdered By: Bhanu Alvarez on 06-03-2023 Hematocrit (Bld) [Volume fraction] 41.5 % Normal 34.0-46.4 [facility] Comment on above: Performed By: #### C MP, PRL, CBC ####[place] [id number] Hemoglobin [Mass/volume] in BloodOrdered By: Bhanu Alvarez on 06-03-2023 Hemoglobin (Bld) [Mass/Vol] 14.1 g/dL Normal 11.8-15.4 [facility] Comment on above: Performed By: #### C MP, PRL, CBC ####[address] Ketones Auto test strip (U) [Mass/Vol]Ordered By: Bhanu Alvarez on 06-03-2023 Ketones (U) [Mass/Vol] Negative Negative [facility] Leukocytes [#/volume] correc armaan for nucleated erythrocytes in Blood by Automated counOrdered By: Bhanu Alvarez on 06-03-2023 WBC corrected for nucl RBC Auto (Bld) [#/Vol] 6.8 10*3/uL 3.8-11.6 [facility] Leukocytes [#/volume] in Blo od by Automated countOrdered By: Bhanu Alvarez on 06-03-2023 WBC (Bld) [#/Vol] 6.8 10*3/uL Normal 3.8-11.6 [facility] Comment on above: Performed By: #### C MP, PRL, CBC ####[address] [address] [place] Lymphocytes [#/volume] in Bl ood by Automated countOrdered By: Bhanu Alvarez on 06-03-2023 Lymphocytes (Bld) [#/Vol] 2.6 10*3/uL Normal 1.00-4.8 [facility] Comment on above: Performed By: #### C MP, PRL, CBC ####[address] Lymphocytes/100 leukocytes i n Blood by Automated countOrdered By: Bhanu Alvarez on 06-03-2023 Lymphocytes/100 WBC (Bld) 38.0 % Normal . [facility] Comment on above: Performed By: #### C MP, PRL, CBC ####[address] MCH [Entitic mass] by Automa armaan countOrdered By: Bhanu Alvarez on 06-03-2023 MCH (RBC) [Entitic mass] 31.8 pg Normal 24.7-34.3 [facility] Comment on above: Performed By: #### C MP, PRL, CBC ####[address] MCHC Auto (RBC) [Mass/Vol]Or dered By: Bhanu Alvarez on 06-03-2023 MCHC (RBC) [Mass/Vol] 33.9 g/dL 32.0-35.0 [facility] MCV [Entitic volume] by Auto mated countOrdered By: Bhanu Alvarez on 06-03-2023 MCV (RBC) [Entitic vol] 93.9 fL Normal 80-100 [facility] Comment on above: Performed By: #### C MP, PRL, CBC ####[address] Monocyte distribution width [Entitic volume] in Blood by AutomatedOrdered By: Bhanu Alvarez on 06-03-2023 Monocyte distribution width Auto (Bld) [Entitic vol] 18.41 % 0.00-20.00 [facility] Neutrophils [#/volume] in Bl ood by Automated countOrdered By: Bhanu Alvarez on 06-03-2023 Neutrophils (Bld) [#/Vol] 3.6 10*3/uL Normal 1.8-7.7 [facility] Comment on above: Performed By: #### C MP, PRL, CBC ####[facility] [id number] [address] Nitrite Test strip Ql (U)Ord ered By: Bhanu Alvarez on 06-03-2023 Nitrite Ql (U) Negative Negative [facility] No Panel InformationOrdered By: Bhanu Alvarez on 06-03-2023 Estimated GFR (CKD-EPI) > 60.0 mL/Min [facility] Creatinine Clearance (Chem 110.22 [facility] Nucleated erythrocytes [Pres ence] in Blood by Automated countOrdered By: Bhanu Alvarez on 06-03-2023 Nucleated RBC Auto Ql (Bld) 0.0 /100{WBC} 0-0.5 [facility] Opiates [Presence] in Urine by Screen methodOrdered By: Bhanu Alvarez on 06-03-2023 Opiates Screen Ql (U) Negative Negative [facility] Phencyclidine Screen Ql (U)O rdered By: Bhanu Alvarez on 06-03-2023 Phencyclidine Ql (U) Negative Negative [facility] Platelet mean volume [Entiti c volume] in Blood by Automated countOrdered By: Bhanu Alvarez on 06-03-2023 Platelet mean volume (Bld) [Entitic vol] 9.3 fL Normal 6.3-10.7 [facility] Comment on above: Performed By: #### C MP, PRL, CBC ####[facility] [id number] Platelets [#/volume] in Bloo d by Automated countOrdered By: Bhanu Alvarez on 06-03-2023 Platelets (Bld) [#/Vol] 196 10*3/uL Normal 150-450 [facility] Comment on above: Performed By: #### C MP, PRL, CBC ####[facility] [id number] [address] Potassium [Moles/volume] in Serum or PlasmaOrdered By: Bhanu Alvarez on 06-03-2023 Potassium [Moles/Vol] 3.7 mmol/L Normal 3.5-5.1 [facility] Comment on above: Order Comment: Hemol yzed-requested redraw @ 1442. MLG Performed By: #### C MP, PRL, CBC ####[place] [address] [place] [address] [facility] Prolactinon 06-03-2023 Prolactin 8.46 ng/mL Normal 3.34-26.72 [facility] Comment on above: Order Comment: Hemol yzed-requested redraw @ 1442. MLG Result Comment: PERF ORMED BY: [facility] [place] [address] [place] [id number] PATHOLOGIST PROGRAM DEVELOPER LEV HERNÁNDEZ M.D. Performed By: #### C MP, PRL, CBC ####[address] [address] [facility] Prolactin [Mass/volume] in S juan carlos or PlasmaOrdered By: Bhanu Alvarez on 06-03-2023 Prolactin [Mass/Vol] 8.46 ng/mL 3.34-26.72 [facility] Protein Auto test strip (U) [Mass/Vol]Ordered By: Bhanu Alvarez on 06-03-2023 Protein (U) [Mass/Vol] Negative Negative [facility] Protein [Mass/volume] in Ser um or PlasmaOrdered By: Bhanu Alvarez on 06-03-2023 Protein [Mass/Vol] 7.5 g/dL Normal 6.4-8.9 [facility] Comment on above: Order Comment: Hemol yzed-requested redraw @ 1442. MLG Performed By: #### C MP, PRL, CBC ####[address] [address] [facility] Serum globulin measurement b y calculation (mass/volume)Ordered By: Bhanu Alvarez on 06-03-2023 Globulin (S) [Mass/Vol] 2.9 g/dL Normal F [facility] Comment on above: Order Comment: Hemol yzed-requested redraw @ 1442. MLG Performed By: #### C MP, PRL, CBC ####[place] [address] Serum or plasma albumin/glob ulin mass ratioOrdered By: Bhanu Alvarez on 06-03-2023 Albumin/Globulin [Mass ratio] 1.6 {ratio} Normal [facility] Comment on above: Order Comment: Hemol yzed-requested redraw @ 1442. MLG Performed By: #### C MP, PRL, CBC ####[address] Serum or plasma anion gap de terminationOrdered By: Bhanu Alvarez on 06-03-2023 Anion gap [Moles/Vol] 11.3 mmol/L Normal 6.0-15.0 [facility] Comment on above: Order Comment: Hemol yzed-requested redraw @ 1442. MLG Performed By: #### C MP, PRL, CBC ####[address] Sodium [Moles/volume] in Ser um or PlasmaOrdered By: Bhanu Alvarez on 06-03-2023 Sodium [Moles/Vol] 138 mmol/L Normal 136-145 [facility] Comment on above: Order Comment: Hemol yzed-requested redraw @ 1442. MLG Performed By: #### C MP, PRL, CBC ####[address] Specific gravity Auto test s trip (U) [Rel density]Ordered By: Bhanu Alvarez on 06-03-2023 Specific gravity (U) [Rel density] 1.010 1.001-1.030 [facility] Troponin I High Sensitivityo n 06-03-2023 Troponin I High Sensitivity < 2.3 Normal 0.0-15.0 [facility] Comment on above: Result Comment: PERF ORMED BY: [facility] [address] [place] [address] PATHOLOGIST PROGRAM DEVELOPER LEV HERNÁNDEZ M.D. Performed By: #### H S TROP ####[address] Troponin I.cardiac [Mass/vol ume] in Serum or Plasma by Detection limit <= 0.01 ng/Ordered By: Bhanu Alvarez on 06-03-2023 Troponin I.cardiac DL <= 0.01 ng/mL [Mass/Vol] < 2.3 pg/mL 0.0-15.0 [facility] Urea nitrogen [Mass/volume] in Serum or PlasmaOrdered By: Bhanu Alvarez on 06-03-2023 Urea nitrogen [Mass/Vol] 10 mg/dL Normal 7-25 [facility] Comment on above: Order Comment: Hemol yzed-requested redraw @ 1442. MLG Performed By: #### C MP, PRL, CBC ####[facility] [id number] Urinalysison 06-03-2023 Appearance (U) Clear Normal Clear [facility] Comment on above: Order Comment: Name Collection Type:: Clean-Voided Midstream Performed By: #### U A, UHCG, URDS #### [facility] [address] Bilirubin,Urine Negative Normal Negative [facility] Comment on above: Order Comment: Name Collection Type:: Clean-Voided Midstream Performed By: #### U A, UHCG, URDS #### [facility] [address] Glucose Ql (U) Normal Normal Normal [facility] Comment on above: Order Comment: Name Collection Type:: Clean-Voided Midstream Performed By: #### U A, UHCG, URDS #### [facility] [address] Ketones Ql (U) Negative Normal Negative [facility] Comment on above: Order Comment: Name Collection Type:: Clean-Voided Midstream Performed By: #### U A, UHCG, URDS #### [facility] [address] Leukocyte esterase Test strip Ql (U) Negative Normal Negative [facility] Comment on above: Order Comment: Name Collection Type:: Clean-Voided Midstream Performed By: #### U A, UHCG, URDS #### [facility] [address] [place] [address] [place] Nitrite,Urine Negative Normal Negative [facility] Comment on above: Order Comment: Name Collection Type:: Clean-Voided Midstream Performed By: #### U A, UHCG, URDS #### [facility] [address] [place] [address] [place] Occult Blood,Urine Negative Normal Negative [facility] Comment on above: Order Comment: Name Collection Type:: Clean-Voided Midstream Performed By: #### U A, UHCG, URDS #### [facility] [address] [place] [address] [place] Protein,Urine Negative Normal Negative [facility] Comment on above: Order Comment: Name Collection Type:: Clean-Voided Midstream Performed By: #### U A, UHCG, URDS #### [address] Specificy [place],Urine 1.010 Normal 1.001-1.030 [facility] Comment on above: Order Comment: Name Collection Type:: Clean-Voided Midstream Performed By: #### U A, UHCG, URDS #### [place] [address] [place] Urobilinogen,Urine Normal Normal Normal [facility] Comment on above: Order Comment: Name Collection Type:: Clean-Voided Midstream Performed By: #### U A, UHCG, URDS #### [address] Urine clarity by refractomet ry automatedOrdered By: Bhanu Alvarez on 06-03-2023 Clarity Refractometry automated (U) Clear Clear [facility] Urine glucose measurement by automated test strip (mass/volume)Ordered By: Bhanu Alvarez on 06-03-2023 Glucose Auto test strip (U) [Mass/Vol] Normal mg/dL Normal [facility] Urine hemoglobin detection b y automated test stripOrdered By: Bhanu Alvarez on 06-03-2023 Hemoglobin Auto test strip Ql (U) Negative Negative [facility] [facility] Urine leukocyte esterase det ection by automated test stripOrdered By: Bhanu Alvarez on 06-03-2023 Leukocyte esterase Auto test strip Ql (U) Negative Negative [facility] Urine pH measurement by auto mated test stripOrdered By: Bhanurajwinder Alvarez on 06-03-2023 pH (U) 6.5 [pH] Normal 5.0-9.0 [facility] Comment on above: Order Comment: Name Collection Type:: Clean-Voided Midstream Performed By: #### U A, UHCG, URDS #### [facility] [address] Urobilinogen Auto test strip (U) [Mass/Vol]Ordered By: Bhanu Alvarez on 06-03-2023 Urobilinogen (U) [Mass/Vol] Normal mg/dL Normal [facility] Physician Referralon 023 Physician Referral [id number] Normal [facility] Physician Referralon 023 Physician Referral [id number]:12 7 Normal [facility] RAD - MISCon 12-27-2022 RAD - MISC [id number]#[id number]:12 7 Normal [facility] ED Note-Physicianon 11-27-19 23 ED Note-Physician [id number]#1.00CD:12 7 Normal [facility] ED Note-Physician Basic Information Time Seen: Gaby Turner PA-C 11/22/2022 20:47 Chief Complaint L flank pain worsening x 2 weeks. pt. seen at [facility] x 2 with negative workup. hx kidney stones. also c/o N/V. denies fevers. History of Present Illness This patient presents emergency department chief complaint of left flank pain. The patient states this has been going on for 2 weeks. 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 I discussed with [...] the patient (more content not included)... Normal [facility] Comment on above: Result Comment: Elec tronically [...] Locations R1: This test was performed at: [facility], [address] [place] [address], [id number] [place] [address], [facility] Comment on above: Performed By: #### 1 [id number], 0770556, [id number] #### [facility] [address] [place] [address] Discharge Instructionson Discharge Instructions [id number]:1 27 [facility] ED Clinical Summaryon 2022 ED Clinical Summary (Inserted Image. Jeniffer ble to display) [address] [address] ED Clinical Summary Person Information Name: SULLY ENRIQUEZ [place] Age: 32 Years : 1990 Sex: Female Language: Vietnamese PCP: MARIO GLASGOW DO Marital Status: Visit [...] 11/23/2022 01:20:40 11/23/2022 01:20:40 11/23/2022 01:20:40 ADDRESS: [address] [place] [phone] PHYS DOC NOTES: MEDICAL INFORMATION: Prescriptions Given: New Medications [id number], [address], [place] [id number], [phone] tramadol (traMADOL 50 mg Tab) 1 Tablets By Mouth every 6 hours as needed for pain. Refills: 0. Medications to Continue with No Changes Other Medications acetaminophen-hydrocodone ([place] 5/325 Tab) By Mouth every 6 hours. [...] Endometriosis; Laparoscopic Lysis of Abdominal Adhesions; Adhesions, Gdel-wp-Qkgo; Abdominal Pain, Adult, Sezc-cf-Chva Follow up: With: Address: When: MARIO BRYANGLES [address] [place], [place] [id number] Business (1) In 3 days 11/26/2022 DIAGNOSIS: 1:Chronic left flank pain; 2:Abdominal pain, acute, left upper quadrant; Other chronic pain Normal [facility] ED Patient Education Noteon 11-23-2022 ED Patient [...] including vitamins, herbs, eye drops, creams, and epqt-dnm-dffexvv medicines. ? Any problems you or family [...] tells you to take them. ? Taking ubys-gkk-apcmhpa medicines, vitamins, herbs, and supplements. General instructions [...] returns. Aft (more content not included)... Normal [facility] ED Patient Summaryon 023 ED Patient Summary (Inserted Image. Jeniffer ble to display) [place] [id number] Patient Discharge Instructions Person Information Name: SULLY ENRIQUEZ Age: 32 Years Arrival Date: 11/22/2022 19:01:04 Discharge Diagnosis: 1:Chronic left flank pain; 2:Abdominal pain, acute, left upper quadrant; Other chronic pain Primary Care Physician: MARIO GLASGOW DO Provider Information Primary Provider: Sonam Montoya DO Advanced Cooler Man:None The exam and treatment you received in the Emergency Department were for an urgent problem and are not intended as complete care. It is important that you follow up with a doctor, nurse practitioner, or physician?s human resources office assistant for ongoing care. If your symptoms [...] Follow-up Instructions: With: Address: When: MARIO GLASGOW [address], [address] [place] [address] Business (1) In 3 days 11/26/2022 In the event that this physician does not participate in your insurance network, please consult with your insurance company to find a nearby participating provider. Patient Education Materials: Endometriosis; Laparoscopic Lysis of Abdominal Adhesions; Adhesions, Skfa-eb-Httn; Abdominal Pain, Adult, Kykb-rk-Spqq A MESSAGE TO ALL PATIENTS REGARDING OPIOIDS PRESCRIPTION OPIOIDS: WHAT YOU NEED TO KNOW Prescription opioids can be used to help relieve cohqijuq-uv-srqphf pain and are often prescribed following a [...] struggling wit (more content not included)... Normal [facility] XR Abdomen 1 Viewon 11-24-19 XR Abdomen [...] mGy = na DAP = na Normal [facility] Auto Diffon 11-22-2022 Basophils/100 WBC (Bld) 0.6 % Normal 0.0-2.0 [facility] Comment on above: Order Comment: Order Added by Discern Expert. Performed By: #### 2 601924, 8915896, 2983862, 62558363, 3324855, 1434839 #### [facility] [address] [place] [address] Basophils/Leukocytes Auto (Bld) [Pure # fraction] 0.0 E9/L Normal 0.0-0.2 [facility] Comment on above: Order Comment: Order Added by Discern Expert. Performed By: #### 2 426297, 0073116, 2489520, 94552047, 4293515, 2680705 #### [facility] [address] [place] [address] Eosinophils/100 WBC (Bld) 1.5 % Normal 0.0-8.0 [facility] Comment on above: Order Comment: Order Added by Carson Expert. Performed By: #### 2 029118, 1268366, 5292000, 73302067, 8035426, 6954737 #### [facility] [address] [place] [address] Eosinophils/Leukocytes Auto (Bld) [Pure # fraction] 0.1 E9/L Normal 0.0-0.5 [facility] Comment on above: Order Comment: Order Added by Carson Expert. Performed By: #### 2 249299, 4442179, 8098834, 76208754, 4860535, 3154677 #### [facility] [address] [place] [address] Lymphocytes/100 WBC (Bld) 33.5 % Normal 14.0-50.0 [facility] Comment on above: Order Comment: Order Added by Carson Expert. Performed By: #### 2 005170, 1510289, 2120603, 46313447, 6621113, 2443199 #### [facility] [address] [place] [address] Lymphocytes/Leukocytes Auto (Bld) [Pure # fraction] 2.6 E9/L Normal 1.0-4.0 [facility] Comment on above: Order Comment: Order Added by Discern Expert. Performed By: #### 2 625380, 5059953, 2996328, 99800313, 3440948, 8779558 #### [facility] [address] [place] [address] Monocytes/100 WBC (Bld) 8.6 % Normal 4.0-14.0 [facility] Comment on above: Order Comment: Order Added by Discern Expert. Performed By: #### 2 642161, 4202641, 3049877, 67968144, 1843493, 3519784 #### [facility] [address] [place] [address] Monocytes/Leukocytes Auto (Bld) [Pure # fraction] 0.7 E9/L Normal 0.2-1.0 [facility] Comment on above: Order Comment: Order Added by Carson Expert. Performed By: #### 2 566007, 0297886, 5107086, 42010171, 8237760, 5511464 #### [facility] [address] [place] [address] Neutrophils/100 WBC (Bld) 55.8 % Normal 36.0-75.0 [facility] Comment on above: Order Comment: Order Added by Discern Expert. Performed By: #### 2 139568, 9104015, 5012045, 78392632, 4700803, 5700065 #### [facility] [address] [place] [address] Neutrophils/Leukocytes Auto (Bld) [Pure # fraction] 4.3 E9/L Normal 2.0-7.5 [facility] Comment on above: Order Comment: Order Added by Carson Expert. Performed By: #### 2 105468, 4727637, 4888924, 63346524, 9503576, 6381380 #### [facility] [address] [place] [address] BMPon 11-22-2022 Creatinine [Mass/Vol] 1.0 mg/dL Normal 0.5-1.3 [facility] Comment on above: Performed By: #### 2 705032, 4052798, 5247275, 88844142, 8134338, 7973347 #### [facility] [address] [place] [address] Urea nitrogen [Mass/Vol] 16 mg/dL Normal 5-21 [facility] Comment on above: Performed By: #### 2 541953, 8351285, 2953968, 80857183, 0091170, 3485328 #### [facility] [address] [place] [address] Urea nitrogen/Creatinine [Mass ratio] 16 No Units Normal 10-20 [facility] Comment on above: Performed By: #### 2 363405, 7375328, 4764640, 65621765, 1436596, 7384168 #### [facility] [address] [place] [address] Anion gap [Moles/Vol] 15 mmol/L Normal 6-16 [facility] Comment on above: Performed By: #### 2 167809, 4416030, 2096479, 28884684, 5170473, 1958835 #### [facility] [address] [place] [address] Calcium [Mass/Vol] 9.6 mg/dL Normal 8.9-11.1 [facility] Comment on above: Performed By: #### 2 971468, 3090951, 7541432, 32476107, 2365263, 3803616 #### [facility] [address] [place] [address] Chloride [Moles/Vol] 107 mmol/L Normal 101-111 [facility] Comment on above: Performed By: #### 2 379540, 5033296, 8515122, 39593179, 3818465, 4100527 #### [facility] [address] [place] [address] CO2 [Moles/Vol] 19 mmol/L Low 21-31 [facility] Comment on above: Performed By: #### 2 466054, 2252343, 3517227, 33960792, 2241868, 2391114 #### [facility] [address] [place] [address] Glucose [Mass/Vol] 97 mg/dL Normal 55-199 [facility] Comment on above: Result Comment: If t his glucose result represents a fasting glucose, interpretation should refer to the following reference range: 55-99 mg/dL Performed By: #### 2 316005, 8380399, 6294364, 34246157, 4239766, 1000955 #### [facility] [address] [place] [address] Potassium [Moles/Vol] 3.9 mmol/L Normal 3.5-5.3 [facility] Comment on above: Performed By: #### 2 437461, 7827926, 0703471, 79065798, 5649366, 4141522 #### [facility] [address] [place] [address] Sodium [Moles/Vol] 137 mmol/L Normal 135-145 [facility] Comment on above: Performed By: #### 2 747874, 0756182, 1762722, 16443838, 7858228, 8540043 #### [facility] [address] [place] [address] CBC w/ Auto Diffon 3 Erythrocyte distribution width (RBC) [Ratio] 13.0 % Normal 10.9-14.2 [facility] Comment on above: Performed By: #### 2 900936, 0987011, 4950625, 59863159, 0840245, 2958642 #### [facility] [address] [place] [address] Hematocrit (Bld) [Volume fraction] 42.7 % Normal 34.0-46.0 [facility] Comment on above: Performed By: #### 2 073519, 5121010, 6917583, 84681270, 7406812, 1643155 #### [facility] [address] [place] [address] Hemoglobin (Bld) [Mass/Vol] 14.6 g/dL Normal 12.0-16.0 [facility] Comment on above: Performed By: #### 2 004379, 7518052, 5682425, 30531919, 9329811, 1747937 #### [facility] [address] [place] [address] MCH (RBC) [Entitic mass] 31.7 pg Normal 27.0-34.0 [facility] Comment on above: Performed By: #### 2 378545, 1444130, 1024886, 43909247, 8095403, 0821298 #### [facility] [address] [place] [address] MCHC (RBC) [Mass/Vol] 34.1 g/dL Normal 31.4-36.0 [facility] Comment on above: Performed By: #### 2 931614, 4826055, 4907476, 98814716, 7517777, 4794648 #### [facility] [address] [place], [place] [address] MCV (RBC) [Entitic vol] 93.1 fL Normal 80.0-100.0 [facility] Comment on above: Performed By: #### 2 674923, 5443465, 9825298, 48326630, 2972612, 0578976 #### [facility] [address] [place] [address] Platelet mean volume (Bld) [Entitic vol] 8.8 fL Normal 6.4-10.8 [facility] Comment on above: Performed By: #### 2 057560, 7447503, 3676044, 79125282, 1075339, 5713165 #### [facility] [address] [place] [address] Platelets (Bld) [#/Vol] 199.0 E9/L Normal 150.0-500.0 [facility] Comment on above: Performed By: #### 2 496454, 2833546, 8243129, 72125017, 8104110, 2612280 #### [facility] [address] [place] [address] RBC (Bld) [#/Vol] 4.6 E12/L Normal 4.3-5.9 [facility] Comment on above: Performed By: #### 2 182874, 0604505, 6044891, 91132799, 8757432, 1623545 #### [facility] [address] [place] [address] WBC corrected for nucl RBC Auto (Bld) [#/Vol] 7.7 E9/L Normal 4.0-11.0 [facility] Comment on above: Performed By: #### 2 819204, 4156943, 3378494, 81299607, 4309976, 5529924 #### [facility] [address] [place] [address] CHEMISTRYOrdered By: SYSTEM SYSTEM on 11-22-2022 Albumin [...] Remisol Consent for Treatmenton Consent for Treatment [id number]:12 7 Normal [facility] HEMATOLOGYOrdered By: SYSTEM SYSTEM on 11-22-2022 Basophils/100 [...] Func Panelon 11-22-2022 Bilirubin.indirect [Mass or moles/Vol] UT Abnormal 0.1-0.9 [facility] Comment on above: Result Comment: Resu lt verified by Discern Rule. Performed result UT (Unable to Calculate) was sent as an Alpha code due the inability to calculate a valid numeric value. Performed By: #### 2 288301, 1398675, 3012568, 49136501, 7139736, 1949069 #### [facility] [address] [place] [address] Albumin [Mass/Vol] 4.5 g/dL Normal 3.3-5.0 [facility] Comment on above: Performed By: #### 2 577302, 1889601, 1272991, 45840730, 9766688, 4083785 #### [facility] [address] [place] [address] Albumin/Globulin (S) [Mass conc ratio] 1.3 Normal 1.1-2.2 [facility] Comment on above: Performed By: #### 2 279549, 2196732, 9569416, 21611278, 3294788, 9823940 #### [facility] [address] [place] [address] ALP [Catalytic activity/Vol] 42 Int._Unit/L Normal 21-98 [facility] Comment on above: Performed By: #### 2 618914, 3792256, 7246697, 70801018, 6567750, 8378326 #### [facility] [address] [place] [address] ALT No additional P-5'-P [Catalytic activity/Vol] 36 Int._Unit/L Normal 6-46 [facility] Comment on above: Performed By: #### 2 683408, 7168973, 1819794, 99438626, 0669044, 9571148 #### [facility] [address] [place] [address] AST [Catalytic activity/Vol] 26 Int._Unit/L Normal 5-43 [facility] Comment on above: Performed By: #### 2 731077, 2619550, 4794617, 64866695, 9394358, 2975607 #### [facility] [address] [place] [address] Bilirubin [Mass/Vol] 0.6 mg/dL Normal 0.0-1.1 [facility] Comment on above: Performed By: #### 2 810470, 3464951, 6609838, 85102882, 5955980, 9160162 #### [facility] [address] [place] [address] Globulin (S) [Mass/Vol] 3.4 g/dL Normal 1.4-4.0 [facility] Comment on above: Performed By: #### 2 487800, 1324491, 2596822, 67262995, 2212385, 1166074 #### [facility] [address] [place] [address] Protein [Mass/Vol] 7.9 g/dL High 6.0-7.8 [facility] Comment on above: Performed By: #### 2 634217, 9253991, 2701776, 14297673, 3379852, 5753068 #### [facility] [address] [place] [address] Bilirubin.direct [Mass/Vol] mg/dL Normal 0.1-0.4 [facility] Comment on above: Performed By: #### 2 437611, 9075325, 5985064, 44148904, 1336783, 0728182 #### [facility] [address] [place] [address] Laboratory - Microbiology an d Antimicrobial susceptibilityOrdered By: Sherice Espinosa on 11-22-2022 Bacteria identified Cx Nom (U) 500 cfu/ml Mixed skin contaminants [facility] Lipase Levelon 11-22-2022 Lipase [Catalytic activity/Vol] 28 U/L Normal 13-58 [facility] Comment on above: Performed By: #### 2 846727, 6480428, 1295383, 01954280, 4694656, 5576898 #### [facility] [address] [place] [address] SEROLOGYOrdered By: Mario For ster on 11-22-2022 HCG.beta subunit (U) [Moles/Vol] Negative Normal [facility] Sero U BetaHcg Qualon 11-22-2022 HCG.beta subunit (U) [Moles/Vol] Negative Normal [facility] Comment on above: Performed By: #### 1 2239155, 6496767, 19188910 #### [facility] [address] [place] [address] UA With Cult Reflexon 2022 Bacteria LM Ql (Urine sed) 2+ /HPF Abnormal Trace [facility] Comment on above: Performed By: #### 1 0479349, 8794794, 28711236 #### [facility] [address] [place] [address] Bilirubin Ql (U) Negative Normal Negative [facility] Comment on above: Performed By: #### 1 2371230, 7457648, 98157818 #### [facility] [address] [place] [address] Clarity (U) CLEAR Normal Clear [facility] Comment on above: Performed By: #### 1 5490398, 4076662, 88597947 #### [facility] [address] [place] [address] Color (U) YELLOW Normal Yellow [facility] Comment on above: Performed By: #### 1 2921994, 4156695, 04900889 #### [facility] [address] [place] [address] Epithelial cells.squamous LM.HPF (Urine sed) [#/Area] 5-8 Normal 0-2 [facility] Comment on above: Performed By: #### 1 5623452, 0082912, 01260585 #### [facility] [address] [place] [address] Glucose Test strip (U) [Mass/Vol] Negative Normal Negative [facility] Comment on above: Performed By: #### 1 9597801, 3659497, 62445790 #### [facility] [address] [place] [address] Hemoglobin Ql (U) Negative Normal Negative [facility] Comment on above: Performed By: #### 1 3679588, 2649922, 13253278 #### [facility] [address] [place] [address] Ketones (U) [Mass/Vol] Negative Normal Negative [facility] Comment on above: Performed By: #### 1 2918845, 3277001, 07139307 #### [facility] [address] [place] [address] [place].plasma/[place]. RBC (Bld) [Mass ratio] 0-3 Normal 0-3 [facility] Comment on above: Performed By: #### 1 9296793, 9773478, 96744265 #### [facility] [address] [place] [address] Mucus Ql (Urine sed) TRACE Normal [facility] Comment on above: Performed By: #### 1 9608935, 7731916, 90459875 #### [facility] [address] [place] [address] Nitrite Ql (U) Negative Normal Negative [facility] Comment on above: Performed By: #### 1 3574051, 7429935, 41995571 #### [facility] [address] [place] [address] pH (U) 6.0 [pH] Invalid Interpretation Code 5.0-9.0 [facility] Comment on above: Performed By: #### 1 7447736, 5640535, 20085778 #### [facility] [address] [place] [address] Protein (U) [Mass/Vol] Negative Normal Negative [facility] Comment on above: Performed By: #### 1 0613635, 5553285, 15049860 #### [facility] [address] [place] [address] Specific gravity (U) [Rel density] 1.025 Invalid Interpretation Code 1.005-1.030 [facility] Comment on above: Performed By: #### 1 2354947, 0488037, 76984642 #### [facility] [address] [place] [address] Type of Urine collection method Clean Catch Normal [facility] Comment on above: Performed By: #### 1 4223875, 7817406, 05858201 #### [facility] [address] [place] [address] Urobilinogen Qn (U) 0.2 {[place]'U}/dL Normal 0.0-1.0 [facility] Comment on above: Performed By: #### 1 5166818, 1221226, 67035042 #### [facility] [address] [place] [address] WBC Auto Ql (U) Negative Normal Negative [facility] Comment on above: Performed By: #### 1 4609383, 8991395, 78941514 #### [facility] [address] [place] [address] WBC LM.HPF (Urine sed) [#/Area] 0-5 Normal 0-5 [facility] Comment on above: Performed By: #### 1 8231466, 3133180, 53209507 #### [facility] [address] [place] [address] URINALYSISOrdered By: Mario howell on 11-22-2022 Bacteria LM Ql (Urine sed) 2+ /HPF Invalid Interpretation Code Trace/HPF FT UA Auto SS Bilirubin Ql (U) Negative (11/22/22 7:19 PM) Normal Negative [facility] UA Auto SS Clarity (U) Clear (11/22/22 7:19 PM) Normal Clear [facility] UA Auto SS Color (U) Yellow (11/22/22 7:19 PM) Normal Yellow [facility] UA Auto SS Epithelial cells.squamous LM.HPF (Urine sed) [#/Area] 5-8 /HPF Normal 0-2/HPF [facility] UA Auto SS Glucose Test strip (U) [Mass/Vol] Negative (11/22/22 7:19 PM) Normal Negative [facility] UA Auto SS Hemoglobin Ql (U) Negative (11/22/22 7:19 PM) Normal Negative [facility] UA Auto SS Ketones (U) [Mass/Vol] Negative (11/22/22 7:19 PM) Normal Negative [facility] UA Auto SS [place].plasma/[place]. RBC (Bld) [Mass ratio] 0-3 /HPF Normal [...] FT UA Auto SS Urobilinogen Qn (U) 0.7698007 {[place]'U}/dL Normal 0.0 - 1.0 EU/dL [facility] UA Auto SS WBC Auto Ql (U) Negative (11/22/22 7:19 PM) Normal Negative [facility] UA Auto SS WBC LM.HPF (Urine sed) [#/Area] 0-5 /HPF Normal 0-5/HPF [facility] UA Auto SS eGFRon 11-22-2022 GFR/1.73 sq M.predicted among non-blacks MDRD (S/P/Bld) [Vol rate/Area] 76 mL/min/1.73 m2 Normal >=59 [facility] Comment on above: Order Comment: Order added by Discern Expert. Result Comment: Country Director fahad kidney disease could be indicated at eGFR's of less than 60 mL/min/1.73m2. Kidney failure is indicated at less than 15 mL/min/1.73m2. Performed By: #### 2 493562, 8981569, 7131722, 82953559, 6557462, 9563737 #### [facility] [address] [place] [address] CT HEAD WO CONon 08-14-2022 CT HEAD [...] ROC ARNOLD Date: 2022-08-13 22:12 Normal [facility] CBC AUTO DIFFon 08-13-2022 BASO # 0.0 103/ul Normal 0.0-0.1 [facility] Comment on above: Performed By: #### C BC ####[facility] [address] [place] [address]Dr. Umulan Tucker Basophils/100 WBC (Bld) 0.3 % Normal 0.2-2.0 [facility] Comment on above: Performed By: #### C BC ####[facility] [address] [place] [address]Dr. Yilan Tucker EO # 0.0 103/ul Normal 0.0-0.7 [facility] Comment on above: Performed By: #### C BC ####[facility] [address] [place] [address]Dr. Yilan Tucker Eosinophils/100 WBC (Bld) 0.1 % Critically low 0.9-7.0 [facility] Comment on above: Performed By: #### C BC ####[facility] [address] [place], [place] [address]Dr. Douglas Tucker Erythrocyte distribution width (RBC) [Ratio] 12.3 % Normal 11.0-15.0 [facility] Comment on above: Performed By: #### C BC ####[facility] [address] [place], [place] [address]Dr. Douglas Tucker Hematocrit (Bld) [Volume fraction] 41.6 % Normal 36.0-48.0 [facility] Comment on above: Performed By: #### C BC ####[facility] [address] [place], [place] [address]Dr. Umuana Tucker Hemoglobin (Bld) [Mass/Vol] 13.6 g/dL Normal 12.0-16.0 [facility] Comment on above: Performed By: #### C BC ####[facility] [address] [place], [place] [address]Dr. Douglas Tucker IG # 0.05 10e3/ul Critically high 0.00-0.03 [facility] Comment on above: Performed By: #### C BC ####[facility] [address] [place], [place] [address]Dr. Umuana Tucker IG % 0.3 % Normal 0.0-0.5 [facility] Comment on above: Performed By: #### C BC ####[facility] [address] [place], [place] [address]Dr. Douglas Tucker LYMPH # 3.0 103/ul Normal 1.2-3.8 [facility] Comment on above: Performed By: #### C BC ####[facility] [address] [place], [place] [address]Dr. Douglas Tucker Lymphocytes/100 WBC (Bld) 20.9 % Normal 20.5-60.0 [facility] Comment on above: Performed By: #### C BC ####[facility] [address] [place], [place] [address]Dr. Douglas Tucker MANUAL DIFF REQ NO Normal [facility] Comment on above: Performed By: #### C BC ####[facility] [address] [place], [place] [address]Dr. Douglas Tucker MCH (RBC) [Entitic mass] 31.7 pg Normal 26.7-34.0 [facility] Comment on above: Performed By: #### C BC ####[facility] [address] [place] [address]Dr. Douglas Tucker MCHC (RBC) [Mass/Vol] 32.7 g/dL Normal 29.9-35.2 [facility] Comment on above: Performed By: #### C BC ####[facility] [address] [place] [address]Dr. Douglas Tucker MCV (RBC) [Entitic vol] 97.0 fL Normal 81.0-99.0 [facility] Comment on above: Performed By: #### C BC ####[facility] G[address] [place], [place] [address]Dr. Douglas Tucker MONO # 1.0 103/ul Critically high 0.3-0.8 [facility] Comment on above: Performed By: #### C BC ####[facility] [address] [place], [place] [address]Dr. Douglas Tucker Monocytes/100 WBC (Bld) 7.2 % Normal 1.7-12.0 [facility] Comment on above: Performed By: #### C BC ####[facility] [address] [place], [place] [address]Dr. Douglas Tucker NEUT # 10.2 103/ul Critically high 1.4-6.5 [facility] Comment on above: Performed By: #### C BC ####[facility] [address] [place], [place] [address]Dr. Douglas Garrett Neutrophils/100 WBC (Bld) 71.2 % Normal 43.0-75.0 [facility] Comment on above: Performed By: #### C BC ####[facility] [address] [place], [place] [address]Dr. Douglas Tucker Platelet mean volume (Bld) [Entitic vol] 10.6 fL Normal 9.5-13.5 [facility] Comment on above: Performed By: #### C BC ####[facility] [address] [place], [place] [address]Ri. Douglas Tucker PLT 229 103/ul Normal 150-450 [facility] Comment on above: Performed By: #### C BC ####[facility] [address] [place] [address]Dr. Douglas Tucker RBC 4.29 106/ul Normal 4.20-5.40 [facility] Comment on above: Performed By: #### C BC ####[facility] [address] [place] [address]Dr. Douglas Tucker WBC 14.4 103/ul Critically high 4.0-11.0 [facility] Comment on above: Performed By: #### C BC ####[facility] [address] [place] [address]DrHernandez Tucker PROF CHEM 8 (BAS METB)on Anion gap [Moles/Vol] 14.6 mmol/L Normal [facility] Comment on above: Performed By: #### T SH, BMP #### [facility] [address] [address] [address] Douglas Tucker Calcium [Mass/Vol] 9.0 mg/dL Normal 8.5-10.1 [facility] Comment on above: Performed By: #### T SH, BMP #### [facility] [address] [address] [address] Douglas Tucker Chloride [Moles/Vol] 107 mmol/L Normal 98-107 [facility] Comment on above: Performed By: #### T SH, BMP #### [facility] [address] [address] [address] Douglas Tucker CO2 [Moles/Vol] 23.2 mmol/L Normal 21.0-32.0 [facility] Comment on above: Performed By: #### T SH, BMP #### [facility] [address] [address] [address] Douglas Tucker Creatinine [Mass/Vol] 0.88 mg/dL Normal 0.55-1.02 [facility] Comment on above: Performed By: #### T SH, BMP #### [facility] [address] [place] [address] Dr. Douglas Tucker EGFR-AF NAMIBIAN >60 Normal >=60 [facility] Comment on above: Performed By: #### T SH, BMP #### [facility] [address] [place] [address] Dr. Douglas Tucker EGFR-NON AF NAMIBIAN >60 Normal >=60 [facility] Comment on above: Performed By: #### T SH, BMP #### [facility] [address] [place] [address] Dr. Douglas Tucker Glucose [Mass/Vol] 100 mg/dL Normal 74-106 [facility] Comment on above: Performed By: #### T SH, BMP #### [facility] [address] [place] [address] Dr. Douglas Tucker Potassium [Moles/Vol] 3.8 mmol/L Normal 3.5-5.1 [facility] Comment on above: Performed By: #### T ZAIDA, BMP #### [facility] [address] [place] [address] Dr. Douglas Tucker Sodium [Moles/Vol] 141 mmol/L Normal 136-145 [facility] Comment on above: Performed By: #### T SH, BMP #### [facility] [address] [place] [address] Dr. Douglas Tucker Urea nitrogen [Mass/Vol] 10.0 mg/dL Normal 7.0-18.0 [facility] Comment on above: Performed By: #### T SH, BMP #### [facility] [address] [place] [address] Dr. Douglas Tucker Urea nitrogen/Creatinine [Mass ratio] 11.4 mg/mg Normal [facility] Comment on above: Performed By: #### T SH, BMP #### [facility] [address] [place] [address] Dr. Douglas Tucker TSHon 08-13-2022 TSH 0.730 uIU/mL Normal 0.358-3.740 [facility] Comment on above: Performed By: #### T SH, BMP #### [facility] [address] [address] [address] Douglas Tucker Automated erythrocytes count in urine sediment (number/area)Ordered By: Mario Bryangles on 06-14-2022 RBC Auto (Urine sed) [#/Area] None seen [HPF] 0-4 [facility] Automated leukocytes count i n urine sediment (number/area)Ordered By: Mario Bryangles on 06-14-2022 WBC Auto (Urine sed) [#/Area] 20-49 [HPF] 0-4 [facility] Bilirubin Test strip Ql (U)O rdered By: Mario Pee on 06-14-2022 Bilirubin Ql (U) Negative Negative [facility] Color Auto (U)Ordered By: Pee on 06-14-2022 Color (U) Yellow Yellow [facility] Ketones Auto test strip (U) [Mass/Vol]Ordered By: Mario Bryangles on 06-14-2022 Ketones (U) [Mass/Vol] Negative Negative [facility] - UrinalysisOrder ed By: Mario Bryangles on 06-14-2022 Hyaline casts LM Ql (Urine sed) 0-8 [LPF] 0-8 [facility] Nitrite Test strip Ql (U)Ord ered By: Mario Bryangles on 06-14-2022 Nitrite Ql (U) Negative Negative [facility] Protein Auto test strip (U) [Mass/Vol]Ordered By: Mario Bryangles on 06-14-2022 Protein (U) [Mass/Vol] Negative Negative [facility] Specific gravity Auto test s trip (U) [Rel density]Ordered By: Mario Bryangles on 06-14-2022 Specific gravity (U) [Rel density] 1.013 1.001-1.030 [facility] Squamous epithelial cells de tection in urine sediment by light microscopyOrdered By: Mario Bryangles on 06-14-2022 Epithelial cells.squamous LM Ql (Urine sed) 5-9 [HPF] 0-2 [facility] Urine bacteria detection by automated methodOrdered By: Mario Bryangles on 06-14-2022 Bacteria Auto Ql (U) 2+ None Seen [facility] Urine clarity by refractomet ry automatedOrdered By: Mario Glasgow on 06-14-2022 Clarity Refractometry automated (U) Cloudy Clear [facility] Urine culture routineOrdered By: Mario Glasgow on 06-14-2022 Bacteria identified Cx Nom (U) Strep. agalactiae Grp B [facility] Urine glucose measurement by automated test strip (mass/volume)Ordered By: Mario Glasgow on 06-14-2022 Glucose Auto test strip (U) [Mass/Vol] Normal mg/dL Normal [facility] Urine hemoglobin detection b y automated test stripOrdered By: Mario Glasgow on 06-14-2022 Hemoglobin Auto test strip Ql (U) Negative Negative [facility] Urine leukocyte esterase det ection by automated test stripOrdered By: Mario Glasgow on 06-14-2022 Leukocyte esterase Auto test strip Ql (U) 3+ Negative [facility] Urobilinogen Auto test strip (U) [Mass/Vol]Ordered By: Mario Glasgow on 06-14-2022 Urobilinogen (U) [Mass/Vol] Normal mg/dL Normal [facility] pH Auto test strip (U)Ordere d By: Mario Glasgow on 06-14-2022 pH (U) 5.5 [pH] 5.0-9.0 [facility] HCG ( test) IA.rapi d Ql (U)Ordered By: Figueroa Galindo on 05-02-2022 HCG ( test) Ql (U) Negative [facility] CULTURE URINEon 04-25-2022 CULTURE URINE Culture Observations : MODERATE GROWTH OF MIXED GENITAL CRICKET. NO POTENTIAL PATHOGENS SEEN. Normal [facility] Comment on above: Performed By: #### U RCX ####[facility] [address] [place], [place] [address]LdDr. Douglas Tucker ER URINE PROFILEon 3 Bilirubin Ql (U) Negative Normal NEGATIVE [facility] Comment on above: Performed By: #### P REGU, UMICRO, ERUR #### [facility] [address] [place], [place] [address] Dr. Douglas Tucker Clarity (U) SL CLOUDY Abnormal CLEAR [facility] Comment on above: Performed By: #### P REGU, UMICRO, ERUR #### [facility] [address] [address] [address] Douglas Tucker Color (U) YELLOW Normal YELLOW [facility] Comment on above: Performed By: #### P REGU, UMICRO, ERUR #### [facility] [address] [address] [address] Douglas NAVARROD A micrscopic examina tion will be performed if indicated. Normal [facility] Comment on above: Performed By: #### P REGU, UMICRO, ERUR #### [facility] [address] [place] [address] Dr. Douglas Tucker Glucose Ql (U) Negative Normal NEGATIVE [facility] Comment on above: Performed By: #### P REGU, UMICRO, ERUR #### [facility] [address] [place] [address] Dr. Douglas Tucker Hemoglobin Ql (U) SMALL Abnormal NEGATIVE [facility] Comment on above: Performed By: #### P REGU, UMICRO, ERUR #### [facility] [address] [place] [address] Dr. Douglas Tucker Ketones Ql (U) Negative Normal NEGATIVE [facility] Comment on above: Performed By: #### P REGU, UMICRO, ERUR #### [facility] [address] [address] [address] Douglas Tucker LEUKOCYTES Negative Normal NEGATIVE [facility] Comment on above: Performed By: #### P REGU, UMICRO, ERUR #### [facility] [address] [address] [address] Douglas Tucker Nitrite Ql (U) Negative Normal NEGATIVE [facility] Comment on above: Performed By: #### P REGU, UMICRO, ERUR #### [facility] [address] [address] [address] Douglas Tucker pH (U) 6.0 [pH] Normal 5-9 [facility] Comment on above: Performed By: #### P REGU, UMICRO, ERUR #### [facility] [address] [address] [address] Douglas Tucker SPEC GRAVITY >=1.030 Abnormal 1.005-<=1.0 25 [facility] Comment on above: Performed By: #### P REGU, UMICRO, ERUR #### [facility] [address] [place] [address] Dr. Douglas Tucker UA PROTEIN TRACE Normal NEGATIVE/ TRACE [facility] Comment on above: Performed By: #### P REGU, UMICRO, ERUR #### [facility] [address] [place] [address] Dr. Douglas Tucker UR MICRO IND INDICATED Normal [facility] Comment on above: Performed By: #### P REGU, UMICRO, ERUR #### [facility] [address] [place] [address] Dr. Douglas Tucker Urobilinogen Qn (U) 0.2 {Elba'U}/dL Normal 0.2 - 1. 0 [facility] Comment on above: Performed By: #### P REGU, UMICRO, ERUR #### [facility] [address] [place] [address] Dr. Douglas Tucker URon 04-25-2022 , QUAL Negative Normal NEGATIVE [facility] Comment on above: Performed By: #### P REGU, UMICRO, ERUR #### [facility] [address] [place] [address] Dr. Douglas Tucker URINE MICROSCOPIC ONLYon BACTERIA MODERATE Abnormal NONE SEEN [facility] Comment on above: Performed By: #### P REGU, UMICRO, ERUR #### [facility] [address] [place] [address] Dr. Douglas Tucker Bacteria identified Cx Nom (U) INDICATED Normal [facility] Comment on above: Performed By: #### P REGU, UMICRO, ERUR #### [facility] [address] [place] [address] Dr. Douglas Tucker CAST NONE SEEN Normal NONE SEEN [facility] Comment on above: Performed By: #### P REGU, UMICRO, ERUR #### [facility] [address] [address] [address] Douglas Tucker Crystals LM Nom (Urine sed) NONE SEEN Normal NONE SEEN [facility] Comment on above: Performed By: #### P REGU, UMICRO, ERUR #### [facility] [address] [address] [address] Douglas Tucker Epithelial cells LM Ql (Urine sed) MODERATE Abnormal NONE SEEN /RARE [facility] Comment on above: Performed By: #### P REGU, UMICRO, ERUR #### [facility] [address] [address] [address] Douglas Tucker MUCOUS NONE SEEN Normal NONE SEEN [facility] Comment on above: Performed By: #### P REGU, UMICRO, ERUR #### [facility] [address] [address] [address] Douglas Tucker RBC 2-5 Abnormal 0-2 [facility] Comment on above: Performed By: #### P REGU, UMICRO, ERUR #### [facility] [address] [address] [address] Douglas Tucker WBC 0-2 Abnormal NONE SEEN [facility] Comment on above: Performed By: #### P REGU, UMICRO, ERUR #### [facility] [address] [address] [address] Douglas Tucker COVID-19 SOFIAOrdered By: Adal Garcia on 04-23-2022 SARS-CoV+SARS-CoV-2 (COVID-19) Ag IA.rapid Ql (Resp) Negative Negative [facility] Comment on above: This is a duplicate Ruth SARS Antigen (LILLY) result to be used for statistical tracking purpose only. No Panel InformationOrdered By: Rell Garcia on 04-23-2022 SARS Antigen (LFIA) [facility] [place] Activated partial thrombopla stin time (aPTT) in platelet poor plasma by coagulation aOrdered By: Rell Garcia on 04-10-2022 aPTT Coag (PPP) [Time] 31.6 s 25.1-36.5 Fi relaFormerly [facility] Albumin [Mass/volume] in Ser um or PlasmaOrdered By: Rell Garcia on 04-10-2022 Albumin [Mass/Vol] 4.4 g/dL 3.2-5.5 [facility] Automated erythrocytes count in urine sediment (number/area)Ordered By: Rell Garcia on 04-10-2022 RBC Auto (Urine sed) [#/Area] None seen [HPF] 0-4 [facility] Automated leukocytes count i n urine sediment (number/area)Ordered By: Rell Garcia on 04-10-2022 WBC Auto (Urine sed) [#/Area] 20-49 [HPF] 0-4 [facility] Automated urine hyaline cast s count (number/volume)Ordered By: Rell Garcia on 04-10-2022 Hyaline casts Auto (U) [#/Vol] None seen [LPF] 0-1 [facility] Basophils Auto (Bld) [#/Vol] Ordered By: Rell Garcia on 04-10-2022 Basophils (Bld) [#/Vol] 0.0 10*3/uL 0.0-0.2 [facility] Basophils/100 WBC Auto (Bld) Ordered By: Rell Garcia on 04-10-2022 Basophils/100 WBC (Bld) 0.4 % . F [facility] Bilirubin Test strip Ql (U)O rdered By: Rell Garcia on 04-10-2022 Bilirubin Ql (U) Negative Negative [facility] Casts typing in urine sedime nt by light microscopyOrdered By: Rell Garcia on 04-10-2022 Casts LM Nom (Urine sed) None seen [LPF] None Seen [facility] Color Auto (U)Ordered By: Adal Garcia on 04-10-2022 Color (U) Yellow Yellow [facility] Creatinine and Glomerular fi ltration rate.predicted panel (S/P/Bld)Ordered By: Rell Garcia on 04-10-2022 Creatinine [Mass/Vol] 0.80 mg/dL 0.44-1.03 [facility] Eosinophils Auto (Bld) [#/Vo l]Ordered By: Rell Garcia on 04-10-2022 Eosinophils (Bld) [#/Vol] 0.3 10*3/uL 0.0-0.45 [facility] Eosinophils/100 WBC Auto (Bl d)Ordered By: Rell Garcia on 04-10-2022 Eosinophils/100 WBC (Bld) 3.6 % . [facility] Erythrocyte distribution wid th Auto (RBC) [Ratio]Ordered By: Rell Garcia on 04-10-2022 Erythrocyte distribution width (RBC) [Ratio] 13.0 % 11.9-15.3 [facility] Estimated glomerular filtrat ion rate (GFR) non- AmericanOrdered By: Rell Garcia on 04-10-2022 GFR/1.73 sq M.predicted among non-blacks MDRD (S/P/Bld) [Vol rate/Area] > 60 mL/Min [facility] Globulin Calc (S) [Mass/Vol] Ordered By: Rell Garcia on 04-10-2022 Globulin (S) [Mass/Vol] 3.1 g/dL F [facility] Hematocrit Auto (Bld) [Volum e fraction]Ordered By: Rell Garcia on 04-10-2022 Hematocrit (Bld) [Volume fraction] 44.2 % 34.0-46.4 [facility] Hemoglobin [Mass/volume] in BloodOrdered By: Rell Garcia on 04-10-2022 Hemoglobin (Bld) [Mass/Vol] 14.8 g/dL 11.8-15.4 [facility] Ketones Auto test strip (U) [Mass/Vol]Ordered By: Rell Garcia on 04-10-2022 Ketones (U) [Mass/Vol] Negative Negative [facility] - CoagulationOrde red By: Rell Garcia on 04-10-2022 PT Coag (PPP) [Time] 10.8 s 9.0-12.9 [facility] Leukocytes [#/volume] correc armaan for nucleated erythrocytes in Blood by Automated counOrdered By: Rell Garcia on 04-10-2022 WBC corrected for nucl RBC Auto (Bld) [#/Vol] 8.6 10*3/uL 3.8-11.6 [facility] Lymphocytes Auto (Bld) [#/Vo l]Ordered By: Rell Garcia on 04-10-2022 Lymphocytes (Bld) [#/Vol] 3.0 10*3/uL 1.00-4.8 [facility] Lymphocytes/100 WBC Auto (Bl d)Ordered By: Rell Garcia on 04-10-2022 Lymphocytes/100 WBC (Bld) 35.3 % . [facility] MCH Auto (RBC) [Entitic mass ]Ordered By: Rell Garcia on 04-10-2022 MCH (RBC) [Entitic mass] 31.8 pg 24.7-34.3 [facility] MCHC Auto (RBC) [Mass/Vol]Or dered By: Rell Garcia on 04-10-2022 MCHC (RBC) [Mass/Vol] 33.5 g/dL 32.0-35.0 [facility] MCV Auto (RBC) [Entitic vol] Ordered By: Rell Garcia on 04-10-2022 MCV (RBC) [Entitic vol] 95.0 fL 80-100 F [facility] Monocytes Auto (Bld) [#/Vol] Ordered By: Rell Garcia on 04-10-2022 Monocytes (Bld) [#/Vol] 0.6 10*3/uL 0.0-0.8 [facility] Monocytes/100 WBC Auto (Bld) Ordered By: Rell Garcia on 04-10-2022 Monocytes/100 WBC (Bld) 7.0 % . [facility] Neutrophils Auto (Bld) [#/Vo l]Ordered By: Rell Garcia on 04-10-2022 Neutrophils (Bld) [#/Vol] 4.6 10*3/uL 1.8-7.7 [facility] Neutrophils/100 WBC Auto (Bl d)Ordered By: Rell Garcia on 04-10-2022 Neutrophils/100 WBC (Bld) 53.7 % . [facility] Nitrite Test strip Ql (U)Ord ered By: Rell Garcia on 04-10-2022 Nitrite Ql (U) Negative Negative [facility] No Panel InformationOrdered By: Rell Garcia on 04-10-2022 Estimated GFR () > 60 mL/Min [facility] Comment on above: GFR estimated refere nce range: According to KDOQI guidelines, <60 ml/min/1.73m2 is sufficient to diagnose a patient with chronic kidney disease. Pharmacy Creatinine Clearance (Chem N/A [facility] Nucleated erythrocytes [Pres ence] in Blood by Automated countOrdered By: Rell Garcia on 04-10-2022 Nucleated RBC Auto Ql (Bld) 0.1 /100{WBC} 0-0.5 [facility] Platelet mean volume Auto (B ld) [Entitic vol]Ordered By: Rell Garcia on 04-10-2022 Platelet mean volume (Bld) [Entitic vol] 9.1 fL 6.3-10.7 [facility] Platelet poor plasma interna tional normalized ratio (INR) by coagulation assay (relatOrdered By: Rell Garcia on 04-10-2022 INR Coag (PPP) [Relative time] 1.0 {INR} [facility] Comment on above: INR Therapeutic Rang [...] 04-10-2022 Platelets (Bld) [#/Vol] 192 10*3/uL 150-450 [facility] Protein Auto test strip (U) [Mass/Vol]Ordered By: Rell Garcia on 04-10-2022 Protein (U) [Mass/Vol] Negative Negative [facility] Protein [Mass/volume] in Ser um or PlasmaOrdered By: Rell Garcia on 04-10-2022 Protein [Mass/Vol] 7.5 g/dL 6.1-7.9 [facility] RBC Auto (Bld) [#/Vol]Ordere d By: Rell Garcia on 04-10-2022 RBC (Bld) [#/Vol] 4.65 10*6/uL 3.60-5.00 [facility] [place] Serum or plasma alanine venegas otransferase measurement without P-5'-P (enzymatic activiOrdered By: Rell Garcia on 04-10-2022 ALT No additional P-5'-P [Catalytic activity/Vol] 19 U/L 10-60 [facility] Serum or plasma albumin/glob ulin mass ratioOrdered By: Rell Garcia on 04-10-2022 Albumin/Globulin [Mass ratio] 1.4 {ratio} [facility] Serum or plasma alkaline molina sphatase measurement (enzymatic activity/volume)Ordered By: Rell Garcia on 04-10-2022 ALP [Catalytic activity/Vol] 47 U/L 32-92 [facility] Serum or plasma anion gap de terminationOrdered By: Rell Garcia on 04-10-2022 Anion gap [Moles/Vol] 13.2 mmol/L 6.0-15.0 [facility] Serum or plasma aspartate am inotransferase measurement (enzymatic activity/volume)Ordered By: Rell Garcia on 04-10-2022 AST [Catalytic activity/Vol] 18 U/L 10-42 [facility] Serum or plasma calcium liam urement (mass/volume)Ordered By: Rell Garcia on 04-10-2022 Calcium [Mass/Vol] 9.5 mg/dL 8.2-10.2 [facility] Serum or plasma chloride fransisca surement (moles/volume)Ordered By: Rell Garcia on 04-10-2022 Chloride [Moles/Vol] 106 mmol/L 95-114 [facility] Serum or plasma glucose liam urement (mass/volume)Ordered By: Rell Garcia on 04-10-2022 Glucose [Mass/Vol] 88 mg/dL 70-100 [facility] Comment on above: ADA recommended refe rence rangeRandom Glucose Reference Range is dependent on time and content of last meal. Glucose of more than 200 mg/dL in a nonstressed, ambulatory subject supports the diagnosis of Diabetes Mellitus. Serum or plasma potassium me asurement (moles/volume)Ordered By: Rell Garcia on 04-10-2022 Potassium [Moles/Vol] 4.1 mmol/L 3.5-5.1 [facility] [facility] Serum or plasma sodium measu rement (moles/volume)Ordered By: Rell Garcia on 04-10-2022 Sodium [Moles/Vol] 134 mmol/L 136-146 [facility] Serum or plasma total biliru bin measurement (mass/volume)Ordered By: Rell Garcia on 04-10-2022 Bilirubin [Mass/Vol] 0.7 mg/dL 0.3-1.2 [facility] Serum or plasma total carbon dioxide measurement (moles/volume)Ordered By: Rell Garcia on 04-10-2022 CO2 [Moles/Vol] 18.9 mmol/L 22.0-30.0 [facility] Serum or plasma urea nitroge n measurement (mass/volume)Ordered By: Rell Garcia on 04-10-2022 Urea nitrogen [Mass/Vol] 14 mg/dL 9-23 [facility] Specific gravity Auto test s trip (U) [Rel density]Ordered By: Rell Garcia on 04-10-2022 Specific gravity (U) [Rel density] 1.016 1.001-1.030 [facility] Squamous epithelial cells de tection in urine sediment by light microscopyOrdered By: Rell Garcia on 04-10-2022 Epithelial cells.squamous LM Ql (Urine sed) 10-19 [HPF] 0-2 [facility] Urine bacteria detection by automated methodOrdered By: Rell Garcia on 04-10-2022 Bacteria Auto Ql (U) 2+ None Seen [facility] Urine clarity by refractomet ry automatedOrdered By: Rell Garcia on 04-10-2022 Clarity Refractometry automated (U) Cloudy Clear [facility] Urine culture routineOrdered By: Rell Garcia on 04-10-2022 Bacteria identified Cx Nom (U) 2 Days [facility] Urine glucose measurement by automated test strip (mass/volume)Ordered By: Rell Garcia on 04-10-2022 Glucose Auto test strip (U) [Mass/Vol] Normal mg/dL Normal [facility] Urine hemoglobin detection b y automated test stripOrdered By: Rell Garcia on 04-10-2022 Hemoglobin Auto test strip Ql (U) Negative Negative [facility] Urine leukocyte esterase det ection by automated test stripOrdered By: Rell Garcia on 04-10-2022 Leukocyte esterase Auto test strip Ql (U) 3+ Negative [facility] Urobilinogen Auto test strip (U) [Mass/Vol]Ordered By: Rell Garcia on 04-10-2022 Urobilinogen (U) [Mass/Vol] Normal mg/dL Normal [facility] WBC Auto (Bld) [#/Vol]Ordere d By: Rell Martinezer on 04-10-2022 WBC (Bld) [#/Vol] 8.6 10*3/uL 3.8-11.6 [facility] pH Auto test strip (U)Ordere d By: Rell Garcia on 04-10-2022 pH (U) 5.5 [pH] 5.0-9.0 [facility] XR ANKLE RT MIN 3 VIEWSon [...] LIZZIE YU Date: 2022-03-28 22:01 Normal [facility] XR SHOULDER LT 2V or >on [...] by: JASS GRISSOM Date: 2022-02-10 21:41 Normal [facility] CBC AUTO DIFFon 01-28-2022 BASO # 0.0 103/ul Normal 0.0-0.1 [facility] Comment on above: Performed By: #### C BC ####[facility] [address] [place] [address]DrHernandez Douglas Tucker Basophils/100 WBC (Bld) 0.7 % Normal 0.2-2.0 [facility] Comment on above: Performed By: #### C BC ####[facility] [address] [place], [place] [address]Dr. Douglas Tucker EO # 0.1 103/ul Normal 0.0-0.7 [facility] Comment on above: Performed By: #### C BC ####[facility] [address]uz[address] [place], [place] [address]Dr. Douglas Tucker Eosinophils/100 WBC (Bld) 2.2 % Normal 0.9-7.0 [facility] Comment on above: Performed By: #### C BC ####[facility] Crehgvrhtj[address] [place], [place] [address]Dr. Umuana Tucker Erythrocyte distribution width (RBC) [Ratio] 12.0 % Normal 11.0-15.0 [facility] Comment on above: Performed By: #### C BC ####[facility] Bafujkvt[address] [place], [place] [address]Dr. Douglas Tucker Hematocrit (Bld) [Volume fraction] 41.3 % Normal 36.0-48.0 [facility] Comment on above: Performed By: #### C BC ####[facility] [address]vkv[address]ss[address] [place], [place] [address]Dr. Douglas Tucker Hemoglobin (Bld) [Mass/Vol] 13.7 g/dL Normal 12.0-16.0 [facility] Comment on above: Performed By: #### C BC ####[facility] Ul[address]wi[address] [place], [place] [address]Dr. Douglas Tucker IG # 0.01 10e3/ul Normal 0.00-0.03 [facility] Comment on above: Performed By: #### C BC ####[facility] Pytdiseeew[address] [place], [place] [address]Dr. Douglas Tucker IG % 0.2 % Normal 0.0-0.5 [facility] Comment on above: Performed By: #### C BC ####[facility] Lyezvaztwo[address] [place], [place] [address]DrHernandez Tucker LYMPH # 2.1 103/ul Normal 1.2-3.8 [facility] Comment on above: Performed By: #### C BC ####[facility] [address] [place] [address]DrHernandez Tucker Lymphocytes/100 WBC (Bld) 38.5 % Normal 20.5-60.0 [facility] Comment on above: Performed By: #### C BC ####[facility] [address] [place] [address]DrHernandez Tucker MANUAL DIFF REQ NO Normal [facility] Comment on above: Performed By: #### C BC ####[facility] [address] [address]DrHernandez Tucker MCH (RBC) [Entitic mass] 31.9 pg Normal 26.7-34.0 [facility] Comment on above: Performed By: #### C BC ####[facility] F[address] [place], [place] [address]DrHernandez Tucker MCHC (RBC) [Mass/Vol] 33.2 g/dL Normal 29.9-35.2 [facility] Comment on above: Performed By: #### C BC ####[facility] Iz[address]pruci[address] [place], [place] [address]DrHernandez Tucker MCV (RBC) [Entitic vol] 96.0 fL Normal 81.0-99.0 [facility] Comment on above: Performed By: #### C BC ####[facility] [address]rf[address] [place], [place] [address]DrHernandez Tucker MONO # 0.4 103/ul Normal 0.3-0.8 [facility] Comment on above: Performed By: #### C BC ####[facility] [address] [place], [place] [address]DrHernandez Tucker Monocytes/100 WBC (Bld) 7.8 % Normal 1.7-12.0 [facility] Comment on above: Performed By: #### C BC ####[facility] [address] [place], [place] [address]DrHernandez Tucker NEUT # 2.8 103/ul Normal 1.4-6.5 [facility] Comment on above: Performed By: #### C BC ####[facility] [address] [place] [id number] Tucker Neutrophils/100 WBC (Bld) 50.6 % Normal 43.0-75.0 [facility] Comment on above: Performed By: #### C BC ####[facility] [address] [place] [id number] Tucker Platelet mean volume (Bld) [Entitic vol] 10.7 fL Normal 9.5-13.5 [facility] Comment on above: Performed By: #### C BC ####[facility] [address] [place] [address]Dr. Douglas Tucker PLT 189 103/ul Normal 150-450 [facility] Comment on above: Performed By: #### C BC ####[facility] H[address]rt[address] [place], [place] [address]DrHernandez Tucker RBC 4.30 106/ul Normal 4.20-5.40 [facility] Comment on above: Performed By: #### C BC ####[facility] [address] [place] [id number]. Douglas Tucker WBC 5.5 103/ul Normal 4.0-11.0 [facility] Comment on above: Performed By: #### C BC ####[facility] [address] [place] [id number]. Douglas Tucker CULTURE URINEon 01-28-2022 CULTURE URINE Culture Observations : MODERATE GROWTH OF MIXED GENITAL CRICKET. NO POTENTIAL PATHOGENS SEEN. Normal [facility] Comment on above: Performed By: #### U RCX ####[facility] [address] [place] [id number]. Douglas Tucker ER URINE PROFILEon 2 Bilirubin Ql (U) Negative Normal NEGATIVE [facility] Comment on above: Performed By: #### U MICRO, ERUR #### [facility] [address] [place], [place] [id number] Dr. Douglas Tucker Clarity (U) CLEAR Normal CLEAR [facility] Comment on above: Performed By: #### U MICRO, ERUR #### [facility] [address] [address] [address] Douglas Tucker Color (U) LT. YELLOW Normal YELLOW [facility] Comment on above: Performed By: #### U MICRO, ERUR #### [facility] [address] [address] [address] Douglas Tucker ERUAHD A micrscopic examina tion will be performed if indicated. Normal [facility] Comment on above: Performed By: #### U MICRO, ERUR #### [facility] [address] [address] [address] Douglas Tucker Glucose Ql (U) Negative Normal NEGATIVE [facility] Comment on above: Performed By: #### U MICRO, ERUR #### [facility] [address] [place] [address] Dr. Douglas Tucker Hemoglobin Ql (U) TRACE-INTACT Abnormal NEGATIVE [facility] Comment on above: Performed By: #### U MICRO, ERUR #### [facility] [address] [address] [address] Douglas Tucker Ketones Ql (U) Negative Normal NEGATIVE [facility] Comment on above: Performed By: #### U MICRO, ERUR #### [facility] [address] [place] [address] Dr. Douglas Tucker LEUKOCYTES TRACE Abnormal NEGATIVE [facility] Comment on above: Performed By: #### U MICRO, ERUR #### [facility] [address] [address] [address] Douglas Tucker Nitrite Ql (U) Negative Normal NEGATIVE [facility] Comment on above: Performed By: #### U MICRO, ERUR #### [facility] [address] [address] [address] Douglas Tucker pH (U) 6.5 [pH] Normal 5-9 [facility] Comment on above: Performed By: #### U MICRO, ERUR #### [facility] [address] [place] [address] Dr. Douglas Tucker SPEC GRAVITY 1.020 Normal 1.005-<=1.0 [facility] Comment on above: Performed By: #### U MICRO, ERUR #### [facility] [address] [address] [address] Douglas Tucker UA PROTEIN Negative Normal NEGATIVE/ TRACE [facility] Comment on above: Performed By: #### U MICRO, ERUR #### [facility] [address] [address] [address] Douglas Tucker UR MICRO IND INDICATED Normal [facility] Comment on above: Performed By: #### U MICRO, ERUR #### [facility] [address] [address] [address] Douglas Tucker Urobilinogen Qn (U) 0.2 {[place]'U}/dL Normal 0.2 - 1. 0 [facility] Comment on above: Performed By: #### U MICRO, ERUR #### [facility] [address] [address] [address] Douglas Tucker PROF 14(COMP METB)on 022 Albumin [Mass/Vol] 3.9 g/dL Normal 3.4-5.0 [facility] Comment on above: Performed By: #### C MP ####[facility] [address] [place] [address]DrHernandez Tucker Albumin/Globulin [Mass ratio] 1.1 {ratio} Normal [facility] Comment on above: Performed By: #### C MP ####[facility] [address] [place] [address]DrHernandez Tucker ALP [Catalytic activity/Vol] 52 U/L Normal 46-116 [facility] Comment on above: Performed By: #### C MP ####[facility] [address] [place] [address]DrHernandez Tucker ALT [Catalytic activity/Vol] 31 U/L Normal 14-59 [facility] Comment on above: Performed By: #### C MP ####[facility] [address] [place] [address]DrHernandez Tucker Anion gap [Moles/Vol] 9.6 mmol/L Normal [facility] Comment on above: Performed By: #### C MP ####[facility] [address] [place] [address]Dr. Douglas Tucker AST [Catalytic activity/Vol] 15 U/L Normal 15-37 [facility] Comment on above: Performed By: #### C MP ####[facility] Indatsbzxc[address] [place], [place] [address]Dr. Douglas Tucker Bilirubin [Mass/Vol] 0.3 mg/dL Normal 0.2-1.0 [facility] Comment on above: Performed By: #### C MP ####[facility] [address]whot[address] [place], [place] [address]Dr. Umuana Garrett Calcium [Mass/Vol] 8.6 mg/dL Normal 8.5-10.1 [facility] Comment on above: Performed By: #### C MP ####[facility] U[address]vw[address]byma[address] [place], [place] [address]Dr. Douglas Tucker Chloride [Moles/Vol] 107 mmol/L Normal 98-107 [facility] Comment on above: Performed By: #### C MP ####[facility] [address]itt[address] [place], [place] [address]Dr. Douglas Tucker CO2 [Moles/Vol] 27.4 mmol/L Normal 21.0-32.0 [facility] Comment on above: Performed By: #### C MP ####[facility] [address] [place], [place] [address]Dr. Umuana Garrett Creatinine [Mass/Vol] 0.90 mg/dL Normal 0.55-1.02 [facility] Comment on above: Performed By: #### C MP ####[facility] Glptipwsrw[address] [place], [place] [address]Dr. Douglas Tucker EGFR-AF NAMIBIAN >60 Normal >=60 [facility] Comment on above: Performed By: #### C MP ####[facility] Iv[address]vvxhct[address] [place], [place] [address]Dr. Douglas Tucker EGFR-NON AF NAMIBIAN >60 Normal >=60 [facility] Comment on above: Performed By: #### C MP ####[facility] [address] [place] [address]Dr. Douglas Tucker Globulin (S) [Mass/Vol] 3.4 g/dL Normal [facility] Comment on above: Performed By: #### C MP ####[facility] [address] [place] [address]Dr. Douglas Tucker Glucose [Mass/Vol] 90 mg/dL Normal 74-106 [facility] Comment on above: Performed By: #### C MP ####[facility] [address] [place] [address]Dr. Douglas Tucker Potassium [Moles/Vol] 4.0 mmol/L Normal 3.5-5.1 [facility] Comment on above: Performed By: #### C MP ####[facility] [address] [place], [place] [address]Dr. Douglas Tucker Protein [Mass/Vol] 7.3 g/dL Normal 6.4-8.2 [facility] Comment on above: Performed By: #### C MP ####[facility] [address] [place], [place] [address]Dr. Douglas Tucker Sodium [Moles/Vol] 140 mmol/L Normal 136-145 [facility] Comment on above: Performed By: #### C MP ####[facility] Wfw[address]clf[address] [place], [place] [address]Dr. Douglas Tucker Urea nitrogen [Mass/Vol] 10.0 mg/dL Normal 7.0-18.0 [facility] Comment on above: Performed By: #### C MP ####[facility] W[address]fxlsax[address] [place], [place] [address]Dr. Douglas Tucker Urea nitrogen/Creatinine [Mass ratio] 11.1 mg/mg Normal [facility] Comment on above: Performed By: #### C MP ####[facility] [address] [place] [address]Dr. Douglas Tucker URINE MICROSCOPIC ONLYon BACTERIA MODERATE Abnormal NONE SEEN [facility] Comment on above: Performed By: #### U MICRO, ERUR #### [facility] [address] [place] [address] Dr. Douglas Tucker Bacteria identified Cx Nom (U) INDICATED Normal [facility] Comment on above: Performed By: #### U MICRO, ERUR #### [facility] [address] [place] [address] Dr. Douglas Tucker CAST NONE SEEN Normal NONE SEEN [facility] Comment on above: Performed By: #### U MICRO, ERUR #### [facility] [address] [place] [address] Dr. Douglas Tucker Crystals LM Nom (Urine sed) NONE SEEN Normal NONE SEEN [facility] Comment on above: Performed By: #### U MICRO, ERUR #### [facility] [address] [place] [address] Dr. Douglas Tucker Epithelial cells LM Ql (Urine sed) FEW Abnormal NONE SEEN /RARE [facility] Comment on above: Performed By: #### U MICRO, ERUR #### [facility] [address] [place] [address] Dr. Douglas Tucker MUCOUS NONE SEEN Normal NONE SEEN [facility] Comment on above: Performed By: #### U MICRO, ERUR #### [facility] [address] [place] [address] Dr. Douglas Tucker RBC 0-2 Normal 0-2 [facility] Comment on above: Performed By: #### U MICRO, ERUR #### [facility] [address] [place] [address] Dr. Douglas Tucker WBC 2-5 Abnormal NONE SEEN [facility] Comment on above: Performed By: #### U MICRO, ERUR #### [facility] [address] [place] [address] Dr. Douglas Tucker US KIDNEYSon 01-28-2022 US [...] RICHELLE BUSH Date: 2022-01-28 13:45 Normal [facility] CBC AUTO DIFFon 10-29-2021 BASO # 0.1 103/ul Normal 0.0-0.1 [facility] Comment on above: Performed By: #### C BC ####[facility] [address] [place] [address]Dr. Douglas Tucker Basophils/100 WBC (Bld) 0.8 % Normal 0.2-2.0 [facility] Comment on above: Performed By: #### C BC ####[facility] [address]yelb[address] [place], [place] [address]Dr. Douglas Tucker EO # 0.2 103/ul Normal 0.0-0.7 [facility] Comment on above: Performed By: #### C BC ####[facility] [address] [place], [place] [address]Dr. Douglas Tucker Eosinophils/100 WBC (Bld) 3.0 % Normal 0.9-7.0 [facility] Comment on above: Performed By: #### C BC ####[facility] [address]ymxct[address]we[address] [place], [place] [address]Dr. Douglas Tucker Erythrocyte distribution width (RBC) [Ratio] 12.2 % Normal 11.0-15.0 [facility] Comment on above: Performed By: #### C BC ####[facility] [address]wn[address] [place], [place] [address]Dr. Douglas Tucker Hematocrit (Bld) [Volume fraction] 39.9 % Normal 36.0-48.0 [facility] Comment on above: Performed By: #### C BC ####[facility] [address]hm[address] [place], [place] [address]Dr. Douglas Tucker Hemoglobin (Bld) [Mass/Vol] 13.5 g/dL Normal 12.0-16.0 [facility] Comment on above: Performed By: #### C BC ####[facility] [address] [place] [address]Dr. Douglas Tucker IG # 0.01 10e3/ul Normal 0.00-0.03 [facility] Comment on above: Performed By: #### C BC ####[facility] [address] [place] [address]Dr. Douglas Tucker IG % 0.2 % Normal 0.0-0.5 [facility] Comment on above: Performed By: #### C BC ####[facility] [address]hk[address] [place], [place] [address]Dr. Douglas Tucker LYMPH # 3.0 103/ul Normal 1.2-3.8 [facility] Comment on above: Performed By: #### C BC ####[facility] [address] [place] [address]Dr. Douglas Tucker Lymphocytes/100 WBC (Bld) 44.6 % Normal 20.5-60.0 [facility] Comment on above: Performed By: #### C BC ####[facility] [address]xsasmw[address] [address]Dr. Douglas Tucker MANUAL DIFF REQ NO Normal [facility] Comment on above: Performed By: #### C BC ####[facility] [address] [address]Dr. Douglas Tucker MCH (RBC) [Entitic mass] 32.1 pg Normal 26.7-34.0 [facility] Comment on above: Performed By: #### C BC ####[facility] [address] [address]Dr. Douglas Tucker MCHC (RBC) [Mass/Vol] 33.8 g/dL Normal 29.9-35.2 [facility] Comment on above: Performed By: #### C BC ####[facility] [address] [place], [place] [address]Dr. Douglas Tucker MCV (RBC) [Entitic vol] 95.0 fL Normal 81.0-99.0 [facility] Comment on above: Performed By: #### C BC ####[facility] [address]su[address] [place], [place] [address]Dr. Douglas Tucker MONO # 0.5 103/ul Normal 0.3-0.8 [facility] Comment on above: Performed By: #### C BC ####[facility] [address]az[address] [place], [place] [address]Dr. Douglas Tucker Monocytes/100 WBC (Bld) 7.8 % Normal 1.7-12.0 [facility] Comment on above: Performed By: #### C BC ####[facility] Nprrvelvhw[address] [place], [place] [address]Dr. Douglas Tucker NEUT # 2.9 103/ul Normal 1.4-6.5 [facility] Comment on above: Performed By: #### C BC ####[facility] [address] [place], [place] [address]Dr. Douglas Garrett Neutrophils/100 WBC (Bld) 43.6 % Normal 43.0-75.0 [facility] Comment on above: Performed By: #### C BC ####[facility] M[address]xndcpst[address] [place], [place] [address]DrHernandez Douglas Garrett Platelet mean volume (Bld) [Entitic vol] 11.1 fL Normal 9.5-13.5 [facility] Comment on above: Performed By: #### C BC ####[facility] [address]ifjsfei[address] [place], [place] [address]Dr. Douglas Garrett PLT 188 103/ul Normal 150-450 [facility] Comment on above: Performed By: #### C BC ####[facility] [address]jynmo[address] [place], [place] [address]Dr. Umuana Garrett RBC 4.20 106/ul Normal 4.20-5.40 [facility] Comment on above: Performed By: #### C BC ####[facility] Qxokbhfhco[address] [place], [place] [address]Dr. Douglas Tucker WBC 6.6 103/ul Normal 4.0-11.0 [facility] Comment on above: Performed By: #### C BC ####[facility] Nenx[address]kedt[address] [place], [place] [address]Dr. Douglas Tucker MAGNESIUMon 10-29-2021 Magnesium [Mass/Vol] 2.1 mg/dL Normal 1.8-2.4 [facility] Comment on above: Performed By: #### M G, CMP ####[facility] [address]uh[address] [place], [place] [address]Dr. Douglas Tucker PROF 14(COMP METB)on 022 Albumin [Mass/Vol] 3.6 g/dL Normal 3.4-5.0 [facility] Comment on above: Performed By: #### Alyse Yañez, CMP ####[facility] [address] [place], [place] [address]Dr. Douglas Tucker Albumin/Globulin [Mass ratio] 1.2 {ratio} Normal [facility] Comment on above: Performed By: #### Alyse Yañez, CMP ####[facility] [address]vzbx[address] [place], [place] [address]Dr. Douglas Tucker ALP [Catalytic activity/Vol] 61 U/L Normal 46-116 [facility] Comment on above: Performed By: #### Alyse Yañez, CMP ####[facility] [address]rxxq[address] [place], [place] [address]Dr. Douglas Tucker ALT [Catalytic activity/Vol] 25 U/L Normal 14-59 [facility] Comment on above: Performed By: #### Alyse Yañez, CMP ####[facility] [address]hieozhp[address] [place], [place] [address]Dr. Douglas Tucker Anion gap [Moles/Vol] 12.4 mmol/L Normal [facility] Comment on above: Performed By: #### Alyse Yañez, CMP ####[facility] Z[address]ynjv[address] [place], [place] [address]Dr. Douglas Tucker AST [Catalytic activity/Vol] 23 U/L Normal 15-37 [facility] Comment on above: Performed By: #### Alyse Yañez, CMP ####[facility] Ok[address]kb[address] [place], [place] [address]Dr. Douglas Tucker Bilirubin [Mass/Vol] 0.3 mg/dL Normal 0.2-1.0 [facility] Comment on above: Performed By: #### M Javon, CMP ####[facility] [address] [place], [place] [address]Dr. Umuana Tucker Calcium [Mass/Vol] 8.5 mg/dL Normal 8.5-10.1 [facility] Comment on above: Performed By: #### M G, CMP ####[facility] [address] [place], [place] [address]Dr. Douglas Tucker Chloride [Moles/Vol] 106 mmol/L Normal 98-107 [facility] Comment on above: Performed By: #### lAyse Yañez, CMP ####[facility] [address] [place], [place] [address]Dr. Douglas Tucker CO2 [Moles/Vol] 22.8 mmol/L Normal 21.0-32.0 [facility] Comment on above: Performed By: #### Alyse Yañez, CMP ####[facility] [address] [place], [place] [address]Dr. Douglas Tucker Creatinine [Mass/Vol] 0.76 mg/dL Normal 0.55-1.02 [facility] Comment on above: Performed By: #### Alyse Yañez, CMP ####[facility] [address] [place], [place] [address]Dr. Douglas Tucker EGFR-AF NAMIBIAN >60 Normal >=60 [facility] Comment on above: Performed By: #### Alyse Yañez, CMP ####[facility] [address] [place], [place] [id number]. Douglas Tucker EGFR-NON AF NAMIBIAN >60 Normal >=60 [facility] Comment on above: Performed By: #### M G, CMP ####[facility] [address] [place], [place] [address]Dr. Douglas Tucker Globulin (S) [Mass/Vol] 3.0 g/dL Normal [facility] Comment on above: Performed By: #### M Javon, CMP ####[facility] [address] [place] [id number]. Douglas Tucker Glucose [Mass/Vol] 110 mg/dL Critically high 74-106 [facility] Comment on above: Performed By: #### M G, CMP ####[facility] Solvx[address] [place], [place] [address]Dr. Douglas Tucker Potassium [Moles/Vol] 4.2 mmol/L Normal 3.5-5.1 [facility] Comment on above: Performed By: #### M G, CMP ####[facility] [address] [place], [place] [address]Dr. Douglas Tucker Protein [Mass/Vol] 6.6 g/dL Normal 6.4-8.2 [facility] Comment on above: Performed By: #### M G, CMP ####[facility] [address] [place], [place] [address]Dr. Douglas Tucker Sodium [Moles/Vol] 137 mmol/L Normal 136-145 [facility] Comment on above: Performed By: #### M G, CMP ####[facility] [address] [place], [place] [address]Dr. Douglas Tucker Urea nitrogen [Mass/Vol] 12.0 mg/dL Normal 7.0-18.0 [facility] Comment on above: Performed By: #### M G, CMP ####[facility] [address] [place], [place] [address]Dr. Douglas Tucker Urea nitrogen/Creatinine [Mass ratio] 15.8 mg/mg Normal [facility] Comment on above: Performed By: #### M G, CMP ####[facility] [address] [place], [place] [address]Dr. Douglas Tucker ALLIED HEALTHon 03-07-2021 [facility] HNO ID: [id number] Author: RT Pati(R) Service: Radiology Author Type: [...] RT Pati(R) March 07, 2021 5:32 PM [facility] CNDSon 03-07-2021 [facility] HNO ID: [id number] Author: Rosalie Haile MD Service: ? Author [...] answered Last EKG reviewed [facility] Labs reviewed No results found for: HBA1C 03/07/21 0416 03/07/21 0722 03/07/21 1138 03/07/21 1613 BP: 104/61 94/63 111/67 113/79 Pulse: (!) 47 72 62 65 Resp: 18 16 Temp: 36.6 ?C (97.9 ?F) [...] known as: ZANAFLEX Rosalie Haile MD Normal [facility] HISTORY PHYSICALon HISTORY PHYSICAL HNO ID: [id number] Author: Rosalie Haile MD Service: ? Author Type: Physician Type: HANDP Filed: 03/11/2021 7:31 PM Note Text: [facility] SULLY ENRIQUE[facility] : 1990 AGE: 31 SEX: F CSN: [id number] [facility] [place] [facility] LOCATION: [facility] ATTENDING PHYSICIAN: Rosalie Haile M.D. ? ? DATE OF SERVICE: 03/06/2021 ? ? SUBJECTIVE: Patient with a history of diabetes and obesity. Admitted to the hospital with seizure. ?This is a 31 year old female with a hx of seizures, diabetes, anxiety, and conversion disorder, who reportedly had a seizure at the [place] [facility]. She and her boyfriend had just arrived [...] 25 mg INTRAVENOUS q 6 H Tim aSnches MD 25 mg at 03/06/21 1508 - prochlorperazine 5 mg injection (COMPAZINE) 5 mg INTRAVENOUS q 6 H Tim Sanches MD 5 mg at 03/06/21 1508 No intake or output data in the 24 hours ending 03/06/210 DATA: CBC: Recent Labs 03/06/21 0234 WBC [...] 40.1 WBC (k/uL) Date Value 03/06/2021 6.79 [facility] consultants notes reviewed Most recent images Reviewed Last EKG/Rhythm reviewed 03/06/21 1930 03/06/21 2100 03/06/21 2212 03/06/21 2227 BP: 123/74 118/64 115/72 Pulse: 68 62 [...] goiter No carotid bruits. Rosalie Haile MD [facility] MRI BRAIN WO IVCONon 021 MRI BRAIN WO IVCON * * *Final Report* * * DATE OF EXAM: Mar 07 2021 5:42PM JACLYN 0294 - MRI BRAIN WO IVCON / PROCEDURE REASON: Dural venous sinus thrombosis suspected * * * * Physician Interpretation * * * * EXAMINATION: MRI BRAIN WO IVCON, MRV BRAIN WO IVCON CLINICAL HISTORY: Clinical concern for dural venous sinus thrombosis. Headache. TECHNIQUE: Routine noncontrast MRI protocol including diffusion images. Ecwh-gt-ytzumx MRV brain with post-processing performed at the [...] contrast. Patent major dural venous sinuses. [facility] Transcribe Date/Time: Mar 07 2021 5:46P Dictated by : HOLLAND MUELLER MD This examination was interpreted and the report reviewed and electronically signed by: HOLLAND MUELLER MD on Mar 07 2021 5:51PM EST [id number] Normal [facility] MRV BRAIN WO IVCONon 021 MRV BRAIN WO IVCON * * *Final Report* * * DATE OF EXAM: Mar 07 2021 5:42PM JACLYN 0335 - MRV BRAIN WO IVCON / PROCEDURE REASON: Dural venous sinus thrombosis suspected * * * * Physician Interpretation * * * * EXAMINATION: MRI BRAIN WO IVCON, MRV BRAIN WO IVCON CLINICAL HISTORY: Clinical concern for dural venous sinus thrombosis. Headache. TECHNIQUE: Routine noncontrast MRI protocol including diffusion images. Rhnh-ma-jqwadr MRV brain with post-processing performed at the [...] contrast. Patent major dural venous sinuses. Director Medical: MAVERICK Transcribe Date/Time: Mar 07 2021 5:46P Dictated by : HOLLAND MUELLER MD This examination was interpreted and the report reviewed and electronically signed by: HOLLAND MUELLER MD on Mar 07 2021 5:51PM EST [id number] [facility] NURSING PROGon 03-07-2021 NURSING PROG HNO ID: [id number] Author: Toya Pompa RN Service: ? Author Type: Registered Nurse Type: Nursing Progress Note Filed: 03/07/2021 11:35 PM Note Text: Nursing Progress Note Patient Name: Sully Enriquez Patient Location: Pt discharged, transferred via wheelchair to exit where was picking her up. IV/tele removed. All belongings accounted for. This note was completed by: Toya Pompa [facility] NURSING PROG HNO ID: [id number] Author: Cordelia Faye RN Service: Nursing Author [...] This note was completed by: Cordelia Faye [facility] NURSING PROG HNO ID: [id number] Author: Breanne Reis RN Service: ? Author Type: Registered Nurse Type: Nursing Progress Note Filed: 03/07/2021 6:30 AM Note Text: Nursing Progress Note Patient Name: Sully Enriquez Patient Location: / Daily Note : Assumed care of pt [...] This note was completed by: Smiley Raymundo [facility] NURSING PROG HNO ID: [id number] Author: Yoselin Cui RN Service: Nursing Author [...] sheets. This note was completed by: [facility] HNO ID: [id number] Author: HAWA Marion) Service: ? Author Type: [...] Sanam(R) March 06, 2021 2:45 AM Normal [facility] CBC and Differentialon 03-06 Abs Baso 0.04 k/uL Normal <0.11 [facility] Comment on above: Performed By: #### C K, ALCO, CBCDIF, CMP, MG1 ####[place] [id number] [place], [place] [phone] Abs Grand 0.55 k/uL Normal <0.87 [facility] Comment on above: Performed By: #### C K, ALCO, CBCDIF, CMP, MG1 ####[place] [phone] Abs Neut 3.17 k/uL Normal 1.45-7.50 [facility] Comment on above: Performed By: #### C K, ALCO, CBCDIF, CMP, MG1 ####[place] [phone] Absolute nRBC <0.01 Normal <0.01 [facility] Comment on above: Performed By: #### C K, ALCO, CBCDIF, CMP, MG1 ####[place] [phone] Basophils/100 WBC (Bld) 0.6 % Normal [facility] Comment on above: Performed By: #### C K, ALCO, CBCDIF, CMP, MG1 ####[address] DTYPE Auto Diff Normal [facility] Comment on above: Performed By: #### C K, ALCO, CBCDIF, CMP, MG1 ####[place] [id number] Eosinophils (Bld) [#/Vol] 0.17 10*3/uL Normal <0.46 [facility] Comment on above: Performed By: #### C K, ALCO, CBCDIF, CMP, MG1 ####[address] Eosinophils/100 WBC (Bld) 2.5 % Normal [facility] Comment on above: Performed By: #### C K, ALCO, CBCDIF, CMP, MG1 ####[address] Erythrocyte distribution width (RBC) [Ratio] 12.0 % Normal 11.5-15.0 [facility] Comment on above: Performed By: #### C K, ALCO, CBCDIF, CMP, MG1 ####[address] Hematocrit (Bld) [Volume fraction] 40.1 % Normal 36.0-46.0 [facility] Comment on above: Performed By: #### C K, ALCO, CBCDIF, CMP, MG1 ####[place] [phone] Hemoglobin (Bld) [Mass/Vol] 13.2 g/dL Normal 11.5-15.5 [facility] Comment on above: Performed By: #### C K, ALCO, CBCDIF, CMP, MG1 ####[place] [phone] Lymphocytes (Bld) [#/Vol] 2.85 10*3/uL Normal 1.00-4.00 [facility] Comment on above: Performed By: #### C K, ALCO, CBCDIF, CMP, MG1 ####[place] [phone] Lymphocytes/100 WBC (Bld) 42.0 % Normal [facility] Comment on above: Performed By: #### C K, ALCO, CBCDIF, CMP, MG1 ####[place] [phone] MCH 31.8 pG Normal 26.0-34.0 [facility] Comment on above: Performed By: #### C K, ALCO, CBCDIF, CMP, MG1 ####[place] [phone] MCHC (RBC) [Mass/Vol] 32.9 g/dL Normal 30.5-36.0 [facility] Comment on above: Performed By: #### C K, ALCO, CBCDIF, CMP, MG1 ####[place] [phone] MCV (RBC) [Entitic vol] 96.6 fL Normal 80.0-100.0 [facility] Comment on above: Performed By: #### C K, ALCO, CBCDIF, CMP, MG1 ####[phone] Monocytes/100 WBC (Bld) 8.1 % Normal [facility] Comment on above: Performed By: #### C K, ALCO, CBCDIF, CMP, MG1 ####[place] [phone] Neutrophils/100 WBC (Bld) 46.8 % Normal [facility] Comment on above: Performed By: #### C K, ALCO, CBCDIF, CMP, MG1 ####[place] [phone] NRBCs 0.0 /100 WBC Normal 0 [facility] Comment on above: Performed By: #### C K, ALCO, CBCDIF, CMP, MG1 ####[place] [phone] Platelet mean volume (Bld) [Entitic vol] 10.7 fL Normal 9.0-12.7 [facility] Comment on above: Performed By: #### C K, ALCO, CBCDIF, CMP, MG1 ####[place] [phone] Platelets (Bld) [#/Vol] 183 10*3/uL Normal 150-400 [facility] Comment on above: Performed By: #### C K, ALCO, CBCDIF, CMP, MG1 ####[place] [phone] RBC (Bld) [#/Vol] 4.15 10*6/uL Normal 3.90-5.20 [facility] Comment on above: Performed By: #### C K, ALCO, CBCDIF, CMP, MG1 ####[place] [phone] WBC (Bld) [#/Vol] 6.79 10*3/uL Normal 3.70-11.00 [facility] Comment on above: Performed By: #### C K, ALCO, CBCDIF, CMP, MG1 ####[place] [phone] CKon 03-06-2021 CK [Catalytic activity/Vol] 103 U/L Normal 30-220 [facility] Comment on above: Performed By: #### C K, ALCO, CBCDIF, CMP, MG1 ####[facility] [place], [place] [phone] CONSULTon 03-06-2021 CONSULT HNO ID: [id number] Author: Saravanan Yancey MD Service: Neurology General Author Type: Resident Type: Consults Filed: 03/06/2021 5:10 PM Note Text: ----- Attestation signed by Tim Sanches MD at 03/06/2021 9:16 PM [facility] STAFF PHYSICIAN NOTE OF PERSONAL INVOLVEMENT [...] her had just deplaned coming back from [place] x 3 days and she had not [...] [place] who is a family doctor in [facility], and she has noted hx of [...] Facility-Administered Medica (more content not included)... Normal [facility] CT BRAIN WO IVCONon 03-06-[address] [...] Other: No depressed skull fracture is seen. Manipulator Operator (topogram) images: Non-diagnostic. IMPRESSION: No CT evidence of an acute intracranial abnormality. Other: details above. Director Medical: MAVERICK Transcribe Date/Time: Mar 06 2021 3:13A Dictated by : JENN MORENO MD This examination was interpreted and the report reviewed and electronically signed by: JENN MORENO MD on Mar 06 2021 3:15AM EST [id number] Normal [facility] Comp Metabolic Panelon 03-06 Albumin [Mass/Vol] 4.6 g/dL Normal 3.5-5.0 [facility] Comment on above: Performed By: #### C K, ALCO, CBCDIF, CMP, MG1 ####[place] [phone] ALP [Catalytic activity/Vol] 67 U/L Normal 34-123 [facility] Comment on above: Performed By: #### C K, ALCO, CBCDIF, CMP, MG1 ####[facility] [place], [place] [phone] ALT [Catalytic activity/Vol] 15 U/L Normal 0-45 [facility] Comment on above: Performed By: #### C K, ALCO, CBCDIF, CMP, MG1 ####[address] [phone] Anion gap [Moles/Vol] 10 mmol/L Normal 9-18 [facility] Comment on above: Performed By: #### C K, ALCO, CBCDIF, CMP, MG1 ####[address] [phone] AST [Catalytic activity/Vol] 15 U/L Normal 7-40 [facility] Comment on above: Performed By: #### C K, ALCO, CBCDIF, CMP, MG1 ####[place] [phone] Bilirubin [Mass/Vol] 0.2 mg/dL Normal 0.2-1.3 [facility] Comment on above: Performed By: #### C K, ALCO, CBCDIF, CMP, MG1 ####[place] [phone] Calcium [Mass/Vol] 9.3 mg/dL Normal 8.5-10.5 [facility] Comment on above: Performed By: #### C K, ALCO, CBCDIF, CMP, MG1 ####[place] [phone] Chloride [Moles/Vol] 106 mmol/L Normal 98-110 [facility] Comment on above: Performed By: #### C K, ALCO, CBCDIF, CMP, MG1 ####[place] [phone] CO2 [Moles/Vol] 25 mmol/L Normal 23-32 [facility] Comment on above: Performed By: #### C K, ALCO, CBCDIF, CMP, MG1 ####[place] [phone] Creatinine [Mass/Vol] 0.99 mg/dL Normal 0.70-1.40 [facility] Comment on above: Performed By: #### C K, ALCO, CBCDIF, CMP, MG1 ####[place] [phone] eGFR- Amer. >60 Normal >60 [facility] Comment on above: Performed By: #### C K, ALCO, CBCDIF, CMP, MG1 ####[place] [phone] eGFR-All Other Races >60 Normal >60 [facility] Comment on above: Result Comment: eGFR (Estimated GFR) Units of measure: mL/min/1.73 meters squared eGFR is derived from the reexpressed MDRD Study equation using the following parameters: serum creatinine, age, gender and race. The creatinine assay has been calibrated to be traceable to IDSD. An eGFR <60 mL/min/1.73m2 for >3 months is consistent with chronic kidney disease. Refer to KDOQI guidelines for clinical interpretation. In patients with unstable renal function, e.g. those with acute kidney injury, the eGFR may not accurately reflect actual GFR. Performed By: #### C K, ALCO, CBCDIF, CMP, MG1 ####[place] [phone] Glucose [Mass/Vol] 103 mg/dL High 65-100 [facility] Comment on above: Performed By: #### C K, ALCO, CBCDIF, CMP, MG1 ####[place] [phone] Potassium [Moles/Vol] 3.9 mmol/L Normal 3.5-5.0 [facility] Comment on above: Performed By: #### C K, ALCO, CBCDIF, CMP, MG1 ####[place] [phone] Protein [Mass/Vol] 7.1 g/dL Normal 6.0-8.4 [facility] Comment on above: Performed By: #### C K, ALCO, CBCDIF, CMP, MG1 ####[place] [phone] Sodium [Moles/Vol] 141 mmol/L Normal 132-148 [facility] Comment on above: Performed By: #### C K, ALCO, CBCDIF, CMP, MG1 ####[place] [phone] Urea nitrogen [Mass/Vol] 12 mg/dL Normal 8-25 [facility] Comment on above: Performed By: #### C K, ALCO, CBCDIF, CMP, MG1 ####[address], [place] [phone] ED NOTEon 03-06-2021 ED NOTE HNO ID: [id number] Author: Isabell Olivares RN Service: ? Author Type: Registered Nurse Type: ED Notes Filed: 03/06/2021 9:38 PM Note Text: Report to JUS Reis. [facility] ED NOTE HNO ID: [id number] Author: Isabell Olivares RN Service: ? Author Type: Registered Nurse Type: ED Notes Filed: 03/06/2021 7:16 PM Note Text: Pt up to bedside commode in room with steady gait, pt back to bed, siderails up x 2. [facility] ED NOTE HNO ID: [id number] Author: Isabell Olivares RN Service: ? Author Type: Registered Nurse Type: ED Notes Filed: 03/06/2021 6:32 PM Note Text: Meal tray arrives at the bedside. [facility] ED NOTE HNO ID: [id number] Author: Isabell Olivares RN Service: ? Author Type: Registered Nurse Type: ED Notes Filed: 03/06/2021 6:02 PM Note Text: Pt encouraged to call for dinner tray. Pt reports her headache has improved. [facility] ED NOTE HNO ID: [id number] Author: Isabell Olivares RN Service: ? Author Type: Registered Nurse Type: ED Notes Filed: 03/06/2021 5:18 PM Note Text: Pt states much improvement to her headache, resting in the room with her family, lights dimmed for comfort. [facility] ED NOTE HNO ID: [id number] Author: Isabell Olivares RN Service: ? Author Type: Registered Nurse Type: ED Notes Filed: 03/06/2021 2:48 PM Note Text: Pt reports no improvement in her headache, pt resting with lights off and warm blankets with family at bedside. No new orders at this time. Neurology paged. [facility] ED NOTE HNO ID: [id number] Author: Isabell Olivares RN Service: ? Author Type: Registered Nurse Type: ED Notes Filed: 03/06/2021 2:25 PM Note Text: MRI form faxed to MRI. Pt states she has claustrophobia with MRI, Neurology paged. [facility] ED NOTE HNO ID: [id number] Author: Isabell Olivares RN Service: ? Author Type: Registered Nurse Type: ED Notes Filed: 03/06/2021 2:04 PM Note Text: MRI Screening form given to the patient. [facility] ED NOTE HNO ID: [id number] Author: Isabell Olivares RN Service: ? Author Type: Registered Nurse Type: ED Notes Filed: 03/06/2021 1:56 PM Note Text: Pt assisted onto and off the bedpan. [facility] ED NOTE HNO ID: [id number] Author: Isabell Olivares RN Service: ? Author Type: Registered Nurse Type: ED Notes Filed: 03/06/2021 1:56 PM Note Text: Pt accucheck 100, meal tray at bedside. [facility] ED NOTE HNO ID: [id number] Author: Isabell Olivares RN Service: ? Author Type: Registered Nurse Type: ED Notes Filed: 03/06/2021 1:39 PM Note Text: Neurology at bedside with the patient. [facility] ED NOTE HNO ID: [id number] Author: Isabell Olivares RN Service: ? Author Type: Registered Nurse Type: ED Notes Filed: 03/06/2021 1:26 PM Note Text: Verbal order from Dr. Haile for 25mg PO benadryl [facility] ED NOTE HNO ID: [id number] Author: Isabell Olivares RN Service: ? Author Type: Registered Nurse Type: ED Notes Filed: 03/06/2021 11:20 AM Note Text: Pt resting in bed with seizure pads in place, pt family member sleeping in the bed with the patient, pt family member asked to not be in the bed with the patient for patient safety. [facility] ED NOTE HNO ID: [id number] Author: Jade Forte RN Service: ? Author Type: Registered Nurse Type: ED Notes Filed: 03/06/2021 11:13 AM Note Text: Patient report given to JUS Whyte [facility] ED NOTE HNO ID: [id number] Author: Isabell Olivares RN Service: ? Author Type: Registered Nurse Type: ED Notes Filed: 03/06/2021 11:02 AM Note Text: Assumed care of the patient at this time, received report from JUS Hansen. Plan of Care: - maintain patient comfort, safety and privacy - monitor for changes in condition - bed locked, low position, siderails up - call light within reach [facility] ED NOTE HNO ID: [id number] Author: Jade Forte RN Service: ? Author Type: Registered Nurse Type: ED Notes Filed: 03/06/2021 11:05 AM Note Text: Patient reports continuing to have headache. Spouse also reports had another few second seizure. House paged. [facility] ED NOTE HNO ID: [id number] Author: Jade Forte RN Service: ? Author Type: Registered Nurse Type: ED Notes Filed: 03/06/2021 10:11 AM Note Text: Called lab, breakfast tray ordered [facility] ED NOTE HNO ID: [id number] Author: Jade Forte RN Service: ? Author Type: Registered Nurse Type: ED Notes Filed: 03/06/2021 8:43 AM Note Text: Patient placed on bedpan. Patient and sheets soiled. Patient cleaned, linens changed [facility] ED NOTE HNO ID: [id number] Author: Jade Forte RN Service: ? Author Type: Registered Nurse Type: ED Notes Filed: 03/06/2021 8:31 AM Note Text: Answered patient call light. Patient requesting bedpan. Patient reports patient just had seizure . House paged and returned call. [facility] ED NOTE HNO ID: [id number] Author: Jade Forte RN Service: ? Author Type: Registered Nurse Type: ED Notes Filed: 03/06/2021 7:39 AM Note Text: Patient resting in bed. Declines breakfast at this time. Reports headache and nausea. House paged. [facility] ED NOTE HNO ID: [id number] Author: Jade Forte RN Service: ? Author Type: Registered Nurse Type: ED Notes Filed: 03/06/2021 7:07 AM Note Text: Patient report received from JUS Schuler [facility] ED PROV NOTEon 03-06-2021 ED PROV NOTE HNO ID: [id number] Author: Adeel Mauro MD Service: Hospital Medicine [...] (*) Negative (more content not included)... Normal [facility] Ethanolon 03-06-2021 Ethanol [Mass/Vol] mg/dL Normal <11 [facility] Comment on above: Performed By: #### C K, ALCO, CBCDIF, CMP, MG1 ####[place] [phone] Expedited [id number] 03-06-20 21 SARS-CoV-2 (COVID-19) RNA AZ+probe Ql (Unsp spec) UPPER RESPIRATORY TRACT SWAB Normal [facility] Comment on above: Performed By: #### E XCOVD #### [place] [phone] SARS-CoV-2 (COVID-19) RNA AZ+probe Ql (Unsp spec) Negative for COVID19 (SARS CoV2) by RT-PCR or equivalent method. Normal Negative for COVID19 (SARS CoV2) by RT-PCR or equivalent method. [facility] Comment on above: Result Comment: This test has been authorized by FDA under an Emergency Use Authorization (EUA). Performed By: #### E XCOVD #### [place] [phone] HCG Qual, Urineon 03-06-2021 Beta HCG ( test) Ql (U) Negative Normal Negative [facility] Comment on above: Performed By: #### U HCG ####[place] [phone] HISTORY PHYSICALon HISTORY PHYSICAL HNO ID: [id number] Author: Adonis Mahoney MD Service: General Internal Medicine Author Type: Physician Type: HANDP Filed: 03/06/2021 6:51 AM Note Text: HISTORY AND PHYSICAL EXAMINATION * SERVICE DATE: 03/06/2021 PRIMARY CARE PHYSICIAN: Keli A Spettel, SEMICONDUCTOR LAB TECHNICIAN Subjective CHIEF COMPLAINT: Seizures HPI: This is a 31 year old female with a hx of seizures, diabetes, anxiety, and conversion disorder, who reportedly had a seizure at the [place] [facility]. She and her boyfriend had just arrived [...] March 06, 2021 TIME: 6:08 AM Normal [facility] Magnesiumon 03-06-2021 Magnesium [Mass/Vol] 2.1 mg/dL Normal 1.7-2.6 [facility] Comment on above: Performed By: #### C K, ALCO, CBCDIF, CMP, MG1 ####[place] [id number] [place], [place] [phone] TSHon 03-06-2021 TSH Qn 3.170 m[IU]/L Normal 0.270-4.200 [facility] Comment on above: Result Comment: If t [...] E, et al. 2017 Guidelines of the [place] [employer] for the Diagnosis and Management of Thyroid Disease during and the . Thyroid, 2017:27:3:315-389. Performed By: #### T SH ####[id number] [place], [place] [phone] Toxicology Screen,Uron 03-06 Amphetamines, Urine Negative Normal Negative [facility] Comment on above: Result Comment: Cuto ff threshold at 1000 ng/mL. Performed By: #### U TOX2, UAWMIC #### [place] [address] Barbiturates, Urine Negative Normal Negative [facility] Comment on above: Result Comment: Cuto ff threshold at 200 ng/mL. Performed By: #### U TOX2, UAWMIC #### [place] [address] Benzodiazepines, Ur Negative Normal Negative [facility] Comment on above: Result Comment: Cuto ff threshold at 200 ng/mL. Performed By: #### U TOX2, UAWMIC #### [place] [address] Cannabinoids, Urine Negative Normal Negative [facility] Comment on above: Result Comment: Cuto ff threshold at 50 ng/mL. Performed By: #### U TOX2, UAWMIC #### [place] [address] Cocaine, Urine Negative Normal Negative [facility] Comment on above: Result Comment: Cuto ff threshold at 300 ng/mL. Performed By: #### U TOX2, UAWMIC #### [place] [address] Ethanol, Urine <11 Normal <11 [facility] Comment on above: Performed By: #### U TOX2, UAWMIC #### [place] [address] Opiates, Urine Negative Normal Negative [facility] Comment on above: Result Comment: Cuto ff threshold at 300 ng/mL. Performed By: #### U TOX2, UAWMIC #### [place] [address] Oxycodone, Urine Negative Normal Negative [facility] Comment on above: Result Comment: Cuto ff [...] on the same specimen through Client Services ([phone]) if contacted within 48 hours of initial testing. [1]Substance Abuse and Mental Health Services Administration (2012). Clinical Drug Testing in Primary Care Technical Assistance Publication Series 32. Department of Health and Human Services, [place], p.10. Performed By: #### U TOX2, UAWMIC #### [place] [address] Phencyclidine, Urine Negative Normal Negative [facility] Comment on above: Result Comment: Cuto ff threshold at 25 ng/mL. Performed By: #### U TOX2, UAWMIC #### [place] [address] Urinalysis with Microscopico n 03-06-2021 Bacteria Rare Critically abnormal Negative [facility] Comment on above: Performed By: #### U TOX2, UAWMIC #### [place] [address] Bilirubin, Urine Negative Normal Negative [facility] Comment on above: Performed By: #### U TOX2, UAWMIC #### [place] [address] Clarity (U) Clear Normal Clear [facility] Comment on above: Performed By: #### U TOX2, UAWMIC #### [place] [address] Color (U) Colorless Critically abnormal Yellow [facility] Comment on above: Performed By: #### U TOX2, UAWMIC #### [place] [address] Comments SEE COMMENT Normal [facility] Comment on above: Result Comment: Micr oscopic Examination Performed Performed By: #### U TOX2, UAWMIC #### [place] [phone] Epithelial cells LM Ql (Urine sed) SEE COMMENT Critically abnormal Negative [facility] Comment on above: Result Comment: Rare Squamous Epithelial Cells Performed By: #### U TOX2, UAWMIC #### [place] [phone] Glucose Ql (U) Negative Normal Negative [facility] Comment on above: Performed By: #### U TOX2, UAWMIC #### [address] Hemoglobin/Blood,Ur Negative Normal Negative [facility] Comment on above: Performed By: #### U TOX2, UAWMIC #### [place] [address] Ketones Ql (U) Negative Normal Negative [facility] Comment on above: Performed By: #### U TOX2, UAWMIC #### [address] Leukest Negative Normal [facility] Comment on above: Performed By: #### U TOX2, UAWMIC #### [place] [phone] Nitrite Ql (U) Negative Normal [facility] Comment on above: Performed By: #### U TOX2, UAWMIC #### [address] pH (U) 7.0 [pH] Normal 5.0-8.0 [facility] Comment on above: Performed By: #### U TOX2, UAWMIC #### [address] Protein, Urine Negative Normal [facility] Comment on above: Performed By: #### U TOX2, UAWMIC #### [place] [phone] RBC Rare Critically abnormal Negative [facility] Comment on above: Performed By: #### U TOX2, UAWMIC #### [facility] [address] [place] [phone] [place], Ur 1.007 Normal 1.005-1.030 [facility] Comment on above: Performed By: #### U TOX2, UAWMIC #### [facility] [address] [place] [phone] Urobilinogen (U) [Mass/Vol] Negative Normal Negative [facility] Comment on above: Performed By: #### U TOX2, UAWMIC #### [place] [phone] WBC Rare Critically abnormal Negative [facility] Comment on above: Performed By: #### U TOX2, UAWMIC #### [place] [phone] Vital Signs Date Time Vital Sign Value Performing Clinician Facility 04-26-2024 14:29-0500 Body height 165.1 cm [facility] 04-26-2024 14:29-0500 Body mass index (BMI) [Ratio] 38.2 kg/m2 [facility] 04-26-2024 14:29-0500 Body temperature 97.3 [degF] [facility] 04-26-2024 14:29-0500 Body weight 104.32 kg [facility] 04-26-2024 14:29-0500 Diastolic blood pressure 102 mm[Hg] [facility] 04-26-2024 14:29-0500 Heart rate 78 /min [facility] 04-26-2024 14:29-0500 Respiratory rate 18 /min [facility] 04-26-2024 14:29-0500 SaO2% (BldA) [Mass fraction] 99 % [facility] 04-26-2024 14:29-0500 Systolic blood pressure 140 mm[Hg] [facility] 03-12-2024 09:52-0500 Body height 165.1 cm Anastasia Mon PA-C Work Phone: [facility] 03-12-2024 09:52-0500 Body mass index (BMI) [Ratio] 38.77 kg/m2 Anastasia Mon PA-C Work Phone: [facility] 03-12-2024 09:52-0500 Body weight 105.69 kg Anastasia Mon PA-C Work Phone: [facility] 02-23-2024 14:38-0500 Body height 165.1 cm DO Mario Pee Work Phone: [facility] 02-23-2024 14:38-0500 Body mass index (BMI) [Ratio] 38.2 kg/m2 DO Mario Pee Work Phone: [facility] 02-23-2024 14:38-0500 Body temperature 96.8 [degF] DO Mario Pee Work Phone: [facility] 02-23-2024 14:38-0500 Body weight 104.32 kg DO Mario Pee Work Phone: [facility] 02-23-2024 14:38-0500 Diastolic blood pressure 72 mm[Hg] DO Mario Pee Work Phone: [facility] 02-23-2024 14:38-0500 Heart rate 84 /min DO Mario Pee Work Phone: [facility] 02-23-2024 14:38-0500 Respiratory rate 16 /min DO Mario Pee Work Phone: [facility] 02-23-2024 14:38-0500 SaO2% (BldA) [Mass fraction] 98 % DO Mario Pee Work Phone: [facility] 02-23-2024 14:38-0500 Systolic blood pressure 120 mm[Hg] DO Mario Pee Work Phone: [facility] 02-17-2024 12:59-0400 Body height 165.1 cm Devaughn Fitch MD Work Phone: [facility] 02-17-2024 12:59-0400 Body mass index (BMI) [Ratio] 38.78 kg/m2 Devaughn Fitch MD Work Phone: [facility] 02-17-2024 12:59-0400 Body weight 105.7 kg Devaughn Fitch MD Work Phone: [facility] 02-17-2024 12:59-0400 Diastolic blood pressure 81 mm[Hg] Devaughn Fitch MD Work Phone: [facility] 02-17-2024 12:59-0400 Heart rate 83 /min Devaughn Fitch MD Work Phone: [facility] 02-17-2024 12:59-0400 SaO2% (BldA) [Mass fraction] 100 % Devaughn Fitch MD Work Phone: [facility] 02-17-2024 12:59-0400 Systolic blood pressure 124 mm[Hg] Devaughn Fitch MD Work Phone: [facility] 01-30-2024 09:33-0400 Body height 165.1 cm Anastasia Mon PA-C Work Phone: [facility] 01-30-2024 09:33-0400 Body mass index (BMI) [Ratio] 38.11 kg/m2 Anastasia Mon PA-C Work Phone: [facility] 01-30-2024 09:33-0400 Body weight 103.87 kg Anastasia Mon PA-C Work Phone: [facility] 01-19-2024 14:27-0400 Body height 165.1 cm Anastasia Mon PA-C Work Phone: [facility] 01-19-2024 14:27-0400 Body mass index (BMI) [Ratio] 38.11 kg/m2 Anastasia Mon PA-C Work Phone: [facility] 01-19-2024 14:27-0400 Body weight 103.87 kg Anastasia Mon PA-C Work Phone: [facility] 01-06-2024 13:45-0400 Body height 165.1 cm [facility] Comment on above: pt reported 01-06-2024 13:45-0400 Body mass index (BMI) [Ratio] 38.11 kg/m2 [facility] 01-06-2024 13:45-0400 Body weight 103.87 kg [facility] Comment on above: pt reported 01-06-2024 13:45-0400 Heart rate 96 /min [facility] Comment on above: per pt counting method 12-26-2023 13:32-0400 Body height 165.1 cm Adele Sutton MD Work Phone: [facility] 12-26-2023 13:32-0400 Body mass index (BMI) [Ratio] 38.61 kg/m2 Adele Sutton MD Work Phone: [facility] 12-26-2023 13:32-0400 Body weight 105.23 kg Adele Sutton MD Work Phone: [facility] 12-26-2023 10:240400 Body height 165.1 cm [facility] 12-26-2023 10:24-0400 Body mass index (BMI) [Ratio] 38.2 kg/m2 [facility] 12-26-2023 10:24-0400 Body temperature 97.3 [degF] [facility] 12-26-2023 10:24-0400 Body weight 104.32 kg [facility] 12-26-2023 10:24-0400 Diastolic blood pressure 88 mm[Hg] [facility] 12-26-2023 10:24-0400 Heart rate 102 /min [facility] 12-26-2023 10:24-0400 SaO2% (BldA) [Mass fraction] 98 % [facility] 12-26-2023 10:24-0400 Systolic blood pressure 122 mm[Hg] [facility] 11-12-2023 14:42-0400 Body height 165.1 cm [facility] 11-12-2023 14:42-0400 Body mass index (BMI) [Ratio] 38.7 kg/m2 [facility] 11-12-2023 14:42-0400 Body temperature 98.4 [degF] [facility] 11-12-2023 14:42-0400 Body weight 105.68 kg [facility] 11-12-2023 14:42-0400 Diastolic blood pressure 90 mm[Hg] [facility] 11-12-2023 14:42-0400 Heart rate 101 /min [facility] 11-12-2023 14:42-0400 Respiratory rate 18 /min [facility] 11-12-2023 14:42-0400 SaO2% (BldA) [Mass fraction] 98 % [facility] 11-12-2023 14:42-0400 Systolic blood pressure 120 mm[Hg] [facility] 10-08-2023 16:13-0400 Body height 165.1 cm [facility] 10-08-2023 16:13-0400 Body mass index (BMI) [Ratio] 39.7 kg/m2 [facility] 10-08-2023 16:13-0400 Body temperature 96.9 [degF] [facility] 10-08-2023 16:13-0400 Body weight 108.4 kg [facility] 10-08-2023 16:13-0400 Diastolic blood pressure 82 mm[Hg] [facility] 10-08-2023 16:13-0400 Heart rate 99 /min [facility] 10-08-2023 16:13-0400 Respiratory rate 16 /min [facility] 10-08-2023 16:13-0400 SaO2% (BldA) [Mass fraction] 97 % [facility] 10-08-2023 16:13-0400 Systolic blood pressure 132 mm[Hg] [facility] 08-27-2023 16:34-0400 Body height 165.1 cm DO Mario Glasgow Work Phone: [facility] 08-27-2023 16:34-0400 Body mass index (BMI) [Ratio] 39.7 kg/m2 DO Mario Pee Work Phone: [facility] 08-27-2023 16:34-0400 Body temperature 97.9 [degF] DO Mario Pee Work Phone: [facility] 08-27-2023 16:34-0400 Body weight 108.4 kg DO Mario Pee Work Phone: [facility] 08-27-2023 16:34-0400 Diastolic blood pressure 80 mm[Hg] DO Mario Pee Work Phone: [facility] 08-27-2023 16:34-0400 Heart rate 70 /min DO Mario Pee Work Phone: [facility] 08-27-2023 16:34-0400 Respiratory rate 18 /min DO Mario Pee Work Phone: [facility] 08-27-2023 16:34-0400 SaO2% (BldA) [Mass fraction] 98 % DO Mario Pee Work Phone: [facility] 08-27-2023 16:34-0400 Systolic blood pressure 130 mm[Hg] DO Mario Pee Work Phone: [facility] 08-07-2023 10:53-0400 Body height 165.1 cm [employer] PA-C Work Phone: [facility] 08-07-2023 10:53-0400 Body weight 105.23 kg [employer] PA-C Work Phone: [facility] 07-07-2023 10:40-0400 Body temperature 98.2 [degF] DO Mario Pee Work Phone: [facility] 07-07-2023 10:40-0400 Diastolic blood pressure 74 mm[Hg] DO Mario Pee Work Phone: [facility] 07-07-2023 10:40-0400 Heart rate 70 /min DO Mario Pee Work Phone: [facility] 07-07-2023 10:40-0400 Respiratory rate 18 /min DO Mario Pee Work Phone: [facility] 07-07-2023 10:40-0400 SaO2% (BldA) [Mass fraction] 98 % DO Mario Pee Work Phone: [facility] 07-07-2023 10:40-0400 Systolic blood pressure 135 mm[Hg] DO Mario Pee Work Phone: [facility] 06-03-2023 18:00-0500 Diastolic blood pressure 75 mm[Hg] DO Mario Pee Work Phone: [facility] 06-03-2023 18:00-0500 Heart rate 72 /min DO Mario Pee Work Phone: [facility] 06-03-2023 18:00-0500 Respiratory rate 16 /min DO Mario Pee Work Phone: [facility] 06-03-2023 18:00-0500 SaO2% (BldA) [Mass fraction] 98 % DO Mario Pee Work Phone: [facility] 06-03-2023 18:00-0500 Systolic blood pressure 116 mm[Hg] DO Mario Pee Work Phone: [facility] 06-03-2023 13:34-0500 Body height 165.1 cm DO Mario Pee Work Phone: [facility] 06-03-2023 13:34-0500 Body temperature 98.2 [degF] DO Mario Pee Work Phone: [facility] 06-03-2023 13:34-0500 Body weight 103.87 kg DO Mario Pee Work Phone: [facility] 04-01-2023 14:00-0500 Body height 165.1 cm DO Mario Pee Work Phone: [facility] 04-01-2023 14:00-0500 Body weight 103.87 kg DO Mario Pee Work Phone: [facility] 04-01-2023 14:00-0500 Diastolic blood pressure 78 mm[Hg] DO Mario Pee Work Phone: [facility] 04-01-2023 14:00-0500 Systolic blood pressure 118 mm[Hg] DO Mario Pee Work Phone: [facility] 01-29-2023 10:15-0400 Body height 165.1 cm Mario Pee Other [employer] Other 01-29-2023 10:15-0400 Body mass index (BMI) [Ratio] 37.27 kg/m2 Mario Pee Other [facility] Other 01-29-2023 10:15-0400 Body temperature 96.9 [degF] Mario Pee Other [facility] Other 01-29-2023 10:15-0400 Body weight 101.61 kg Mario Pee Other [facility] Other 01-29-2023 10:15-0400 Diastolic blood pressure 70 mm[Hg] Mario Pee Other [facility] [employer] Other 01-29-2023 10:15-0400 Respiratory rate 20 /min Mario Pee Other [facility] [employer] Other 01-29-2023 10:15-0400 SaO2% (BldA) [Mass fraction] 99 % Mario Pee Other [facility] [employer] Other 01-29-2023 10:15-0400 Systolic blood pressure 110 mm[Hg] Mario Pee Other [facility] [employer] Other 12-12-2022 15:15-0400 Body height 165.1 cm Mario Pee Other [facility] [employer] Other 12-12-2022 15:15-0400 Body mass index (BMI) [Ratio] 37.77 kg/m2 Mario Pee Other [facility] Other 12-12-2022 15:15-0400 Body weight 102.97 kg Mario Pee Other [facility] [employer] Other 12-12-2022 15:15-0400 Diastolic blood pressure 60 mm[Hg] Mario Pee Other [facility] Other 12-12-2022 15:15-0400 Respiratory rate 20 /min Mario Pee Other [facility] [employer] Other 12-12-2022 15:15-0400 Systolic blood pressure 102 mm[Hg] Mario Pee Other [facility] [employer] Other 11-23-2022 01:18-0400 Diastolic blood pressure 83 mm[Hg] Sonam Montoya [facility] 11-23-2022 01:18-0400 Heart rate 64 /min Rondactwalter awaismichael [facility] 11-23-2022 01:18-0400 Mean blood pressure 94 mm[Hg] Kaylinn Dokken [facility] 11-23-2022 01:18-0400 Respiratory rate 19 /min Kaylinn Dokken [facility] 11-23-2022 01:18-0400 SaO2% (BldA) [Mass fraction] 97 % Kaylinn Dokken [facility] 11-23-2022 01:18-0400 Systolic blood pressure 117 mm[Hg] Kaylinn Dokken [facility] 11-23-2022 01:14-0400 Diastolic blood pressure 85 mm[Hg] Kaylinn Dokken [facility] 11-23-2022 01:14-0400 Heart rate 65 /min Kaylinn Dokken [facility] 11-23-2022 01:14-0400 Mean blood pressure 98 mm[Hg] Kaylinn Dokken [facility] 11-23-2022 01:14-0400 Respiratory rate 18 /min Kaylinn Dokken [facility] 11-23-2022 01:14-0400 SaO2% (BldA) [Mass fraction] 98 % Kaylinn Dokken [facility] 11-23-2022 01:14-0400 Systolic blood pressure 124 mm[Hg] Kaylinn Dokken [facility] 11-23-2022 00:00-0400 Body temperature 98.24 [degF] Kaylinn Dokken [facility] 11-23-2022 00:00-0400 Diastolic blood pressure 63 mm[Hg] Sonam Zavalaen [facility] 11-23-2022 00:00-0400 Mean blood pressure 77 mm[Hg] Sonam Montoya [facility] 11-23-2022 00:00-0400 SaO2% (BldA) [Mass fraction] 99 % Sonam Montoya [facility] 11-23-2022 00:00-0400 Systolic blood pressure 105 mm[Hg] Sonam Montoya [facility] 11-22-2022 22:00-0400 Heart rate 63 /min Sonam Montoya [facility] 11-22-2022 20:59-0400 Body temperature 98.06 [degF] Sonam Montoya [facility] 11-22-2022 20:59-0400 Respiratory rate 19 /min Sonam Montoya [facility] 11-14-2022 13:15-0400 Body height 165.1 cm Mario Pee Other [facility] [employer] Other 11-14-2022 13:15-0400 Body mass index (BMI) [Ratio] 37.77 kg/m2 Mario Pee Other [facility] Other 11-14-2022 13:15-0400 Body temperature 97.8 [degF] Mario Pee Other [facility] Other 11-14-2022 13:15-0400 Body weight 102.97 kg Mario Pee Other [facility] Other 11-14-2022 13:15-0400 Diastolic blood pressure 76 mm[Hg] Mario Pee Other [facility] Other 11-14-2022 13:15-0400 Respiratory rate 20 /min Mario Pee Other [facility] Other 11-14-2022 13:15-0400 SaO2% (BldA) [Mass fraction] 97 % Mario Pee Other [facility] Other 11-14-2022 13:15-0400 Systolic blood pressure 100 mm[Hg] Mario Pee Other [facility] Other 10-15-2022 14:45-0400 Body height 165.1 cm Mario Pee Other [facility] Other 10-15-2022 14:45-0400 Body mass index (BMI) [Ratio] 38.44 kg/m2 Mario Pee Other [facility] Other 10-15-2022 14:45-0400 Body temperature 96 [degF] Mario Pee Other [facility] Other 10-15-2022 14:45-0400 Body weight 104.78 kg Mario Pee Other [facility] Other 10-15-2022 14:45-0400 Diastolic blood pressure 78 mm[Hg] Mario Pee Other [facility] Other 10-15-2022 14:45-0400 Respiratory rate 20 /min Mario Pee Other [facility] Other 10-15-2022 14:45-0400 SaO2% (BldA) [Mass fraction] 97 % Mario Pee Other [facility] Other 10-15-2022 14:45-0400 Systolic blood pressure 122 mm[Hg] Mario Pee Other [facility] Other 09-17-2022 13:00-0400 Body height 165.1 cm Mario Pee Other [facility] Other 09-17-2022 13:00-0400 Body mass index (BMI) [Ratio] 39.27 kg/m2 Mario Pee Other [facility] Other 09-17-2022 13:00-0400 Body temperature 96.9 [degF] Mario Pee Other [facility] Other 09-17-2022 13:00-0400 Body weight 107.05 kg Mario Pee Other [facility] Other 09-17-2022 13:00-0400 Diastolic blood pressure 78 mm[Hg] Mario Pee Other [facility] Other 09-17-2022 13:00-0400 Respiratory rate 20 /min Mario Pee Other [facility] Other 09-17-2022 13:00-0400 SaO2% (BldA) [Mass fraction] 96 % Mario Pee Other [facility] Other 09-17-2022 13:00-0400 Systolic blood pressure 124 mm[Hg] Mario Pee Other [facility] [employer] Other 05-02-2022 20:23-0500 Body temperature 98 [degF] DO Mario Pee Work Phone: [facility] 05-02-2022 20:23-0500 Diastolic blood pressure 78 mm[Hg] DO Mario Pee Work Phone: [facility] 05-02-2022 20:23-0500 Heart rate 104 /min DO Mario Pee Work Phone: [facility] 05-02-2022 20:23-0500 Respiratory rate 18 /min DO Mario Pee Work Phone: [facility] 05-02-2022 20:23-0500 SaO2% (BldA) [Mass fraction] 96 % DO Mario Pee Work Phone: [facility] 05-02-2022 20:23-0500 Systolic blood pressure 125 mm[Hg] DO Mario Pee Work Phone: [facility] 05-02-2022 16:20-0500 Inhaled oxygen flow rate 3 L/min DO Mario Pee Work Phone: [facility] 05-02-2022 06:52-0500 Body height 165.1 cm DO Mario Pee Work Phone: [facility] 05-02-2022 06:52-0500 Body mass index (BMI) [Ratio] 37.9 kg/m2 DO Mario Pee Work Phone: [facility] 05-02-2022 06:52-0500 Body weight 103.4 kg DO Mario Pee Work Phone: [facility] 04-24-2022 18:09-0500 Body height 165.1 cm DO Mario Pee Work Phone: [facility] 04-24-2022 18:09-0500 Body temperature 99.1 [degF] DO Mario Pee Work Phone: [facility] 04-24-2022 18:09-0500 Body weight 104.2 kg DO Mario Pee Work Phone: [facility] 04-24-2022 18:09-0500 Diastolic blood pressure 88 mm[Hg] DO Mario Pee Work Phone: [facility] 04-24-2022 18:09-0500 Heart rate 99 /min DO Mario Pee Work Phone: [facility] 04-24-2022 18:09-0500 Respiratory rate 19 /min DO Mario Pee Work Phone: [facility] 04-24-2022 18:09-0500 SaO2% (BldA) [Mass fraction] 96 % DO Mario Pee Work Phone: [facility] 04-24-2022 18:09-0500 Systolic blood pressure 124 mm[Hg] DO Mario Pee Work Phone: [facility] 04-17-2022 15:00-0500 Body height 165.1 cm Mario Pee Other [facility] [employer] Other 04-17-2022 15:00-0500 Body mass index (BMI) [Ratio] 38.77 kg/m2 Mario Pee Other [facility] Other 04-17-2022 15:00-0500 Body temperature 97.2 [degF] Mario Pee Other [facility] Other 04-17-2022 15:00-0500 Body weight 105.69 kg Mario Pee Other [facility] Other 04-17-2022 15:00-0500 Diastolic blood pressure 82 mm[Hg] Mario Pee Other [facility] Other 04-17-2022 15:00-0500 Respiratory rate 20 /min Mario Pee Other [facility] Other 04-17-2022 15:00-0500 SaO2% (BldA) [Mass fraction] 98 % Mario Pee Other [facility] Other 04-17-2022 15:00-0500 Systolic blood pressure 124 mm[Hg] Mario Pee Other [facility] Other 04-10-2022 08:44-0500 Body height 165.1 cm DO Mario Pee Work Phone: [facility] 04-10-2022 08:44-0500 Body temperature 98.3 [degF] DO Mario Pee Work Phone: [facility] 04-10-2022 08:44-0500 Body weight 105 kg DO Mario Pee Work Phone: [facility] 04-10-2022 08:44-0500 Diastolic blood pressure 82 mm[Hg] DO Mario Pee Work Phone: [facility] 04-10-2022 08:44-0500 Heart rate 80 /min DO Mario Pee Work Phone: [facility] 04-10-2022 08:44-0500 Respiratory rate 16 /min DO Mario Pee Work Phone: [facility] 04-10-2022 08:44-0500 SaO2% (BldA) [Mass fraction] 98 % DO Mario Pee Work Phone: [facility] 04-10-2022 08:44-0500 Systolic blood pressure 125 mm[Hg] DO Mario Pee Work Phone: [facility] 12-12-2021 14:45-0400 Body height 165.1 cm Mario Pee Other [employer] Other 12-12-2021 14:45-0400 Body mass index (BMI) [Ratio] 37.27 kg/m2 Mario Pee Other [employer] Other 12-12-2021 14:45-0400 Body temperature 96.9 [degF] Mario Pee Other [employer] Other 12-12-2021 14:45-0400 Body weight 101.61 kg Mario Pee Other [employer] Other 12-12-2021 14:45-0400 Diastolic blood pressure 80 mm[Hg] Mario Pee Other [employer] Other 12-12-2021 14:45-0400 Respiratory rate 20 /min Mario Pee Other [employer] Other 12-12-2021 14:45-0400 SaO2% (BldA) [Mass fraction] 98 % Mario Pee Other [employer] Other 12-12-2021 14:45-0400 Systolic blood pressure 124 mm[Hg] Mario Pee Other [employer] Other 10-12-2021 09:30-0400 Body height 165.1 cm Mario Pee Other [employer] Other 10-12-2021 09:30-0400 Body mass index (BMI) [Ratio] 37.27 kg/m2 Mario Pee Other [employer] Other 10-12-2021 09:30-0400 Body temperature 98.3 [degF] Mario Pee Other [employer] Other 10-12-2021 09:30-0400 Body weight 101.61 kg Mario Pee Other [employer] Other 10-12-2021 09:30-0400 Diastolic blood pressure 80 mm[Hg] Mario Pee Other [employer] Other 10-12-2021 09:30-0400 Respiratory rate 18 /min Mario Pee Other [employer] Other 10-12-2021 09:30-0400 Systolic blood pressure 110 mm[Hg] Mario Pee Other [employer] Other 09-27-2021 17:00-0400 Body height 165.1 cm Mario Pee Other [employer] Other 09-27-2021 17:00-0400 Body mass index (BMI) [Ratio] 38.1 kg/m2 Mario Pee Other [employer] Other 09-27-2021 17:00-0400 Body temperature 97.6 [degF] Mario Pee Other [employer] Other 09-27-2021 17:00-0400 Body weight 103.87 kg Mario Pee Other [employer] Other 09-27-2021 17:00-0400 Diastolic blood pressure 62 mm[Hg] Mario Pee Other [employer] Other 09-27-2021 17:00-0400 Respiratory rate 20 /min Mario Pee Other [employer] Other 09-27-2021 17:00-0400 SaO2% (BldA) [Mass fraction] 97 % Mario Pee Other [employer] Other 09-27-2021 17:00-0400 Systolic blood pressure 122 mm[Hg] Mario Pee Other [employer] Other 05-30-2021 18:15-0500 Body height 165.1 cm Mario Pee Other [facility] [employer] Other 05-30-2021 18:15-0500 Body mass index (BMI) [Ratio] 37.6 kg/m2 Mario Pee Other [employer] Other 05-30-2021 18:15-0500 Body temperature 97.3 [degF] Mario Pee Other [employer] Other 05-30-2021 18:15-0500 Body weight 102.51 kg Mario Pee Other [facility] [employer] Other 05-30-2021 18:15-0500 Diastolic blood pressure 82 mm[Hg] Mario Pee Other [employer] Other 05-30-2021 18:15-0500 Respiratory rate 20 /min Mario Pee Other [employer] Other 05-30-2021 18:15-0500 SaO2% (BldA) [Mass fraction] 97 % Mario Pee Other [employer] Other 05-30-2021 18:15-0500 Systolic blood pressure 122 mm[Hg] Mario Pee Other [employer] Other 05-02-2021 18:30-0500 Body height 165.1 cm Mario Pee Other [facility] [employer] Other 05-02-2021 18:30-0500 Body mass index (BMI) [Ratio] 36.77 kg/m2 Mario Pee Other [employer] Other 05-02-2021 18:30-0500 Body temperature 97.6 [degF] Mario Pee Other [employer] Other 05-02-2021 18:30-0500 Body weight 100.25 kg Mario Pee Other [facility] [employer] Other 05-02-2021 18:30-0500 Diastolic blood pressure 70 mm[Hg] Mario Pee Other [facility] [employer] Other 05-02-2021 18:30-0500 Respiratory rate 20 /min Mario Pee Other [employer] Other 05-02-2021 18:30-0500 SaO2% (BldA) [Mass fraction] 96 % Mario Pee Other [employer] Other 05-02-2021 18:30-0500 Systolic blood pressure 118 mm[Hg] Mario Pee Other [employer] Other Encounters Encounter Date Encounter Type Care Provider Facility Start: 04-26-2024 End: 04-26-2024 ambulatory [facility] Work Phone: Start: 04-26-2024 End: 04-26-2024 Patient encounter procedure [facility] Work Phone: Start: 03-12-2024 End: 03-12-2024 Office outpatient visit 40 minutes Anastasia Mon PA-C Work Phone: [facility] [place] Comment on above: Mass of right breast , unspecified quadrant (Primary Dx); Nipple discharge; Family history of breast cancer; Fibrocystic breast changes of both breasts Start: 03-12-2024 End: 03-12-2024 Subsequent hospital visit by physician [facility] Comment on above: Mass of right breast , unspecified quadrant [N63.10] Start: 03-12-2024 End: 03-12-2024 ambulatory ANASTASIA SANCHEZ Facility:[facility] Start: 02-23-2024 End: 02-23-2024 ambulatory DO Mario Pee Work Phone: [facility] Work Phone: Start: 02-23-2024 End: 02-23-2024 Patient encounter procedure DO Mario Pee Work Phone: [facility] Work Phone: Start: 02-17-2024 End: 02-17-2024 ambulatory MARIO VELAZQUEZ PEE Facility:[facility] Start: 02-17-2024 End: 02-17-2024 Office consultation new/estab patient 80 min Devaughn Fitch MD Work Phone: Endocrinology Comment on above: Discharge from right nipple (Primary Dx); Obesity, Class II, BMI 35-39.9 Start: 01-30-2024 End: 01-30-2024 Subsequent hospital visit by physician [facility] Comment on above: Mass of right breast , unspecified quadrant [N63.10] Start: 01-30-2024 End: 01-30-2024 ambulatory ANASTASIA SANCHEZ Facility:[facility] Start: 01-30-2024 End: 01-30-2024 Patient encounter procedure Anastasia Mon PA-C Work Phone: [facility] Comment on above: Mass of right breast , unspecified quadrant (Primary Dx); Nipple discharge; Family history of breast cancer Start: 01-19-2024 End: 01-19-2024 Patient encounter procedure Anastasia Mon PA-C Work Phone: [facility] Comment on above: Breast fibroadenoma, right (Primary Dx); Fibrocystic breast changes of both breasts; Post-operative state Start: 01-19-2024 End: 01-19-2024 ambulatory MARIO GLASGOW Facility:[facility] Start: 01-09-2024 End: 01-09-2024 ambulatory Adele Sutton MD Work Phone: [facility] Comment on above: Pain medication Start: 01-09-2024 End: 01-09-2024 E-mail encounter from caregiver Adele Sutton MD Work Phone: [facility] Start: 01-09-2024 End: 01-09-2024 Telephone encounter Adele Sutton MD Work Phone: [facility] Comment on above: Breast Problem Start: 01-08-2024 End: 01-08-2024 ambulatory ADELE SUTTON Facility:[facility] Start: 01-07-2024 Non-patient / Non-visit DO Tasha Glasgow Work Phone: [facility] Work Phone: Start: 01-07-2024 Encounter for other preprocedural examination FRANCHESCA MAN [facility] Start: 01-07-2024 End: 01-07-2024 ambulatory MARIO GLASGOW Facility:[facility] Start: 01-07-2024 End: 01-07-2024 Subsequent hospital visit by physician Procedure Mammo Main Mammography Start: 01-06-2024 End: 01-06-2024 Telephone encounter Camila Russo PA-C Work Phone: Pre Anesthesia Comment on above: Patient Update Start: 01-06-2024 End: 01-06-2024 [facility] Start: 01-06-2024 End: 01-06-2024 ambulatory MARIO GLASGOW Facility:[facility] Start: 01-06-2024 End: 01-06-2024 Anesthesia consultation [facility] Pre Anesthesia Comment on above: Pre-op evaluation (P rimary Dx); Seizure (HCC); Difficult intravenous access; Obesity (BMI 30-39.9); POTS (postural orthostatic tachycardia syndrome); Rash Start: 01-06-2024 End: 01-06-2024 Preprocedural examination done [facility] Work Phone: Start: 01-02-2024 End: 01-02-2024 Telephone encounter Salina Dickinson PA-C Work Phone: Pre Anesthesia Comment on above: Appointment Start: 01-02-2024 ambulatory MARIO GLASGOW Faci lity:[facility] Start: 12-31-2023 End: 12-31-2023 Telephone encounter Tamika Camacho APRN.CNP Work Phone: Pre Anesthesia Comment on above: Missed Appointment Start: 12-26-2023 End: 12-26-2023 Patient encounter status Adele Sutton MD Work Phone: [facility] Start: 12-26-2023 End: 12-29-2023 Telephone encounter Adele Sutton MD Work Phone: [facility] Comment on above: Breast Localization Request Start: 12-26-2023 End: 12-26-2023 ambulatory FRANCHESCA MAN Facility:[facility] Start: 12-26-2023 End: 12-26-2023 Departed Referred DO Mario Glasgow Work Phone: [facility] [place] Work Phone: Start: 12-26-2023 End: 12-26-2023 ambulatory Adele Sutton MD Work Phone: [facility] Work Phone: Comment on above: Breast fibroadenoma, right (Primary Dx); Preop testing Start: 12-26-2023 End: 12-26-2023 Patient encounter procedure [facility] Work Phone: Comment on above: Breast fibroadenoma, right (Primary Dx) Start: 12-17-2023 Emergency department patient visit ANASTASIA HILTON [facility] Start: 12-17-2023 End: 12-17-2023 Emergency department patient visit CAMILLE GUERRERO [facility] Start: 12-17-2023 Non-patient / Non-visit [facility] Work Phone: Start: 11-12-2023 End: 11-12-2023 ambulatory [facility] Work Phone: Start: 11-12-2023 End: 11-12-2023 Patient encounter procedure [facility] Work Phone: Start: 10-08-2023 End: 10-08-2023 ambulatory [facility] Work Phone: Start: 10-08-2023 End: 10-08-2023 Patient encounter procedure [facility] Work Phone: Start: 10-08-2023 End: 10-08-2023 ambulatory VASU HILTON Not Available Start: 09-12-2023 Telephone encounter Franchesca lamas PA-C Work Phone: [facility] Start: 09-11-2023 Telephone encounter Lou Miller RN Work Phone: Mammography Comment on above: Results Start: 09-08-2023 End: 09-08-2023 ambulatory FRANCHESCA MAN Facility:[facility] Start: 09-08-2023 End: 09-08-2023 Subsequent hospital visit by physician Procedure Mammo Main Mammography Comment on above: Fibrocystic breast c hanges of both breasts [N60.11, N60.12] Start: 09-02-2023 Non-patient / Non-visit [facility] Work Phone: Start: 08-27-2023 End: 08-27-2023 ambulatory DO Mario M. Pee Work Phone: [facility] Work Phone: Start: 08-27-2023 End: 08-27-2023 Patient encounter procedure DO Mario Pee Work Phone: [facility] Work Phone: Start: 08-13-2023 Non-patient / Non-visit DO Set h Pee Work Phone: [facility] Work Phone: Start: 08-11-2023 Telephone encounter Franchesca MONTEZC Work Phone: [facility] Start: 08-07-2023 End: 08-07-2023 Subsequent hospital visit by physician [facility] Comment on above: Fibrocystic breast c hanges of both breasts [N60.11, N60.12] Start: 08-07-2023 End: 08-07-2023 ambulatory KELI STRICKLAND Facility:[facility] Start: 08-07-2023 End: 08-07-2023 Patient encounter procedure Franchesca FINNEGAN-C Work Phone: [facility] Comment on above: Mastodynia (Primary Dx); Fibrocystic breast changes of both breasts; Family history of breast cancer; Dense breasts; Nipple discharge Start: 08-06-2023 Orders Only Franchesca MONTEZC Work Phone: [facility] Comment on above: Disorder of breast ( Primary Dx) Start: 07-30-2023 Telephone encounter Franchesca Yañez adams PA-C Work Phone: [facility] Start: 07-25-2023 Non-patient / Non-visit DO Set h Pee Work Phone: [facility] Work Phone: Start: 07-25-2023 Telephone encounter Franchesca Yañez adams PA-C Work Phone: [facility] Start: 07-14-2023 End: 07-14-2023 ambulatory LUCERO H ITZKOWITZ Not Available Start: 07-07-2023 Non-patient / Non-visit DO Set h Pee Work Phone: [facility] Work Phone: Start: 07-07-2023 End: 07-07-2023 Admission to same day surgery center DO Mario Pee Work Phone: [facility] Start: 07-07-2023 End: 07-07-2023 ambulatory DO Mario M. Pee Work Phone: [facility] Work Phone: Start: 07-02-2023 End: 07-02-2023 ambulatory LUCERO H ITZKOWITZ Not Available Start: 07-01-2023 Non-patient / Non-visit DO Set h Pee Work Phone: [facility] Work Phone: Start: 06-30-2023 End: 06-30-2023 ambulatory LUCERO H ITZKOWITZ Not Available Start: 06-30-2023 Non-patient / Non-visit DO Set h Pee Work Phone: [facility] Work Phone: Start: 06-25-2023 End: 06-25-2023 ambulatory RELL GARCIA Not Available Start: 06-18-2023 End: 06-18-2023 ambulatory RELL GARCIA Not Available Start: 06-06-2023 Non-patient / Non-visit DO Set h Pee Work Phone: [facility] [employer] Work Phone: Start: 06-03-2023 End: 06-03-2023 Emergency department patient visit DO Mario Pee Work Phone: [facility] Work Phone: Start: 05-07-2023 End: 05-07-2023 ambulatory Mario Pee Other [employer] Other Start: 05-07-2023 Telephone encounter Mario Pee [facility] Start: 04-01-2023 End: 04-01-2023 Patient encounter procedure DO Mario Pee Work Phone: [facility] Work Phone: Start: 03-21-2023 End: 03-21-2023 ambulatory Mario Pee Other [employer] Other Start: 03-21-2023 Telephone encounter Mario Pee [facility] Start: 02-13-2023 End: 02-13-2023 ambulatory Mario Pee Other [employer] Other Start: 02-13-2023 Telephone encounter Mario Pee [facility] Start: 01-29-2023 End: 01-29-2023 ambulatory Mario Pee Other [employer] Other Start: 01-29-2023 Office outpatient vi sit 15 minutes Mario Pee [facility] Start: 01-21-2023 End: 01-21-2023 ambulatory Mario Pee Other [employer] Other Start: 01-21-2023 Telephone encounter Mario Pee [facility] Start: 01-01-2023 End: 01-02-2023 ambulatory Erin Chavez Facility:[facility] Start: 01-01-2023 End: 01-01-2023 Patient encounter procedure Erin CullenHernandez Vargasjean pierre [facility] Start: 12-20-2022 End: 12-20-2022 ambulatory Mario Pee Other [employer] Other Start: 12-20-2022 Telephone encounter Mario Pee [facility] Start: 12-12-2022 End: 12-12-2022 ambulatory Mario Pee Other [employer] Other Start: 12-12-2022 Office outpatient vi sit 15 minutes Mario Pee [facility] Start: 11-22-2022 End: 11-23-2022 Emergency department patient visit DO Aracelikristensigrid Montoya [facility] Start: 11-22-2022 End: 11-23-2022 Emergency department patient visit Sonam Montoya [facility] Start: 11-20-2022 End: 11-20-2022 ambulatory Mario Pee Other [employer] Other Start: 11-20-2022 Telephone encounter Mario Pee [facility] Start: 11-14-2022 End: 11-14-2022 ambulatory Mario Pee Other [employer] Other Start: 11-14-2022 Office outpatient vi sit 15 minutes Mario Pee [facility] Start: 10-15-2022 End: 10-15-2022 ambulatory Mario Pee Other [employer] Other Start: 10-15-2022 Office outpatient vi sit 25 minutes Mario Pee [facility] Start: 10-09-2022 End: 10-09-2022 ambulatory Mario Pee Other [employer] Other Start: 10-09-2022 Telephone encounter Mario Pee [facility] Start: 09-17-2022 End: 09-17-2022 ambulatory Mario Pee Other [employer] Other Start: 09-17-2022 Office outpatient vi sit 15 minutes Mario Pee [facility] Start: 09-17-2022 Telephone encounter Mario Pee [facility] Start: 08-13-2022 End: 08-14-[address] MARIO Cullen PEE Facility:[facility] Start: 08-12-2022 End: 08-13-[address] MARIO Cullen PEE Facility:[facility] Start: 08-09-2022 End: 08-09-2022 ambulatory Mario Pee Other [employer] Other Start: 08-09-2022 Telephone encounter Mario Pee [facility] Start: 07-08-2022 End: 07-08-2022 ambulatory Vi Easterwood Other [employer] Other Start: 07-08-2022 Telephone encounter Vi Easterwood [facility] Start: 06-17-2022 End: 06-17-2022 ambulatory Mario Pee Other [employer] Other Start: 06-17-2022 Telephone encounter Mario Pee [facility] Start: 06-14-2022 End: 06-14-2022 ambulatory DO Mario M. Pee Work Phone: [facility] Work Phone: Start: 06-14-2022 End: 06-14-2022 Departed Referred DO Mario Pee Work Phone: [facility] [place] Work Phone: Start: 06-07-2022 End: 06-07-2022 ambulatory Mario Pee Other [employer] Other Start: 06-07-2022 Telephone encounter Mario Pee [facility] Start: 05-09-2022 End: 05-09-2022 ambulatory Mario Pee Other [employer] Other Start: 05-09-2022 Telephone encounter Mario Pee [facility] Start: 05-06-2022 End: 05-06-2022 ambulatory Mario Pee Other [employer] Other Start: 05-06-2022 Telephone encounter Mario Pee [facility] Start: 05-02-2022 End: 05-02-2022 Admission to same day surgery center DO Mario Pee Work Phone: [facility] [place] Start: 05-02-2022 End: 05-02-2022 ambulatory DO Mario M. Pee Work Phone: [facility] Work Phone: Start: 04-25-2022 Telephone encounter Mario Pee [facility] Start: 04-25-2022 End: 04-25-2022 Departed Referred DO Mario Pee Work Phone: [facility] [place] Start: 04-25-2022 End: 04-25-2022 ambulatory DO Mario M. Pee Work Phone: [employer] Other Start: 04-24-2022 End: 04-24-2022 Emergency department patient visit DO Mario Pee Work Phone: [facility] Work Phone: Start: 04-23-2022 End: 04-23-2022 Patient encounter procedure DO Mario Pee Work Phone: [facility] Work Phone: Start: 04-17-2022 End: 04-17-2022 ambulatory Mario Pee Other [employer] Other Start: 04-17-2022 Office outpatient vi sit 15 minutes Mario Pee [facility] Start: 04-17-2022 Telephone encounter Mario Pee [facility] Start: 04-16-2022 End: 04-16-2022 ambulatory Mario Pee Other [employer] Other Start: 04-16-2022 Telephone encounter Mario Pee [facility] Start: 04-10-2022 End: 04-10-2022 ambulatory DO Mario M. Pee Work Phone: [facility] Work Phone: Start: 04-10-2022 End: 04-10-2022 Patient encounter procedure DO Mario Pee Work Phone: [facility] Start: 04-09-2022 End: 04-09-2022 ambulatory Mario Pee Other [employer] Other Start: 04-09-2022 Telephone encounter Mario Pee [facility] Start: 04-08-2022 End: 04-08-2022 ambulatory Mario Pee Other [employer] Other Start: 04-08-2022 Telephone encounter Mraio Pee [facility] Start: 03-28-2022 End: 03-30-[address] MARIO Cullen PEE Facility:[facility] Start: 03-06-2022 End: 03-06-2022 ambulatory Mario Pee Other [employer] Other Start: 03-06-2022 Telephone encounter Mario Pee [facility] Start: 02-10-2022 End: 02-10-[address] MARIO Cullen PEE Facility:[facility] Start: 02-04-2022 End: 02-04-2022 ambulatory Mario Pee Other [employer] Other Start: 02-04-2022 Telephone encounter Mario Pee [facility] Start: 01-29-2022 End: 01-29-2022 ambulatory Mario Pee Other [employer] Other Start: 01-29-2022 Telephone encounter Mario Pee [facility] Start: 01-28-2022 End: 01-28-[address] MARTIN M PEE Facility:[facility] Start: 12-25-2021 End: 12-25-2021 ambulatory Mario Pee Other [employer] Other Start: 12-25-2021 Telephone encounter Mario Pee [facility] Start: 12-12-2021 End: 12-12-2021 ambulatory Mario Pee Other [employer] Other Start: 12-12-2021 Office outpatient vi sit 15 minutes Mario Pee [facility] Start: 11-26-2021 End: 11-26-2021 ambulatory Mario Pee Other [employer] Other Start: 11-26-2021 Telephone encounter Mario Pee [facility] Start: 11-21-2021 End: 11-21-2021 ambulatory Mario Pee Other [employer] Other Start: 11-21-2021 Telephone encounter Mario Pee [facility] Start: 11-05-2021 End: 11-05-2021 ambulatory Mario Pee Other [employer] Other Start: 11-05-2021 Telephone encounter Mario Pee [facility] Start: 10-29-2021 End: 10-29-[address] MARIO M PEE Facility: Start: 10-23-2021 End: 10-23-2021 ambulatory Mario Pee Other [employer] Other Start: 10-23-2021 Telephone encounter Mario Pee [facility] Start: 10-19-2021 End: 10-19-2021 ambulatory Mario Pee Other [employer] Other Start: 10-19-2021 Telephone encounter Mario Pee [facility] Start: 10-12-2021 End: 10-12-2021 ambulatory Mario Pee Other [employer] Other Start: 10-12-2021 Office outpatient vi sit 15 minutes Mario Pee [facility] Start: 10-12-2021 Telephone encounter Mario Pee [facility] Start: 10-01-2021 End: 10-01-2021 ambulatory Mario Pee Other [employer] Other Start: 10-01-2021 Telephone encounter Mario Pee [facility] Start: 09-27-2021 End: 09-27-2021 ambulatory Mario Pee Other [employer] Other Start: 09-27-2021 Office outpatient vi sit 15 minutes Mario Pee [facility] Start: 09-18-2021 End: 09-18-2021 ambulatory Mario Pee Other [employer] Other Start: 09-18-2021 Telephone encounter Mario Pee [facility] Start: 09-10-2021 End: 09-10-2021 ambulatory Mario Pee Other [employer] Other Start: 09-10-2021 Telephone encounter Mario Pee [facility] Start: 09-05-2021 End: 09-05-2021 Patient encounter procedure Erin Chavez [facility] Start: 08-13-2021 End: 08-13-2021 ambulatory Mario Pee Other [employer] Other Start: 08-13-2021 Telephone encounter Mario Pee [facility] Start: 08-01-2021 End: 08-01-2021 ambulatory Mario Pee Other [employer] Other Start: 08-01-2021 Telephone encounter Mario Pee [facility] Start: 07-06-2021 End: 07-06-2021 ambulatory Vi Benites Other [employer] Other Start: 07-06-2021 Telephone encounter Vi Benites [facility] Start: 06-18-2021 End: 06-18-2021 ambulatory Mario Pee Other [employer] Other Start: 06-18-2021 Telephone encounter Mario Pee [facility] Start: 06-08-2021 End: 06-08-2021 ambulatory Mario Pee Other [employer] Other Start: 06-08-2021 Telephone encounter Mario Pee [facility] Start: 05-30-2021 End: 05-30-2021 ambulatory Mario Pee Other [employer] Other Start: 05-30-2021 Office outpatient vi sit 15 minutes Mario Pee [facility] Start: 05-21-2021 End: 05-21-2021 ambulatory Mario Pee Other [employer] Other Start: 05-21-2021 Telephone encounter Mario Pee [facility] Start: 05-09-2021 End: 05-09-2021 ambulatory Mario Pee Other [employer] Other Start: 05-09-2021 Telephone encounter Mario Pee [facility] Start: 05-08-2021 End: 05-08-2021 ambulatory Mario Pee Other [employer] Other Start: 05-08-2021 Telephone encounter Mario Pee [facility] Start: 05-02-2021 End: 05-02-2021 ambulatory Mario Pee Other [employer] Other Start: 05-02-2021 Office outpatient vi sit 15 minutes Mario Glasgow [facility] Procedures Date Procedure Procedure Detail Performing Clinician Start: 03-12-2024 Us breast uni real t [place] with image limited Anastasia Mon PA-C Work Phone: Start: 03-12-2024 Digital breast tomos ynthesis unilateral Anastasia Mon PA-C Work Phone: Start: 01-30-2024 Us breast uni real t [place] with image limited Anastasia Mon PA-C Work Phone: Start: 01-07-2024 Diagnostic mammograp hy computer-aided detcj uni Adele Sutton MD Work Phone: Start: 01-07-2024 Perq breast loc kym ce placemt 1st lesio us imag Aedle Sutton MD Work Phone: Start: 12-26-2023 Bacteria identified in Urine by Culture DO Mario Glasgow Work Phone: Start: 12-26-2023 Urine culture DO Mario R uggljodi Work Phone: Start: 09-08-2023 Bx breast w/device 1 st lesion ultrasound guid Franchesca FINNEGAN-C Work Phone: Start: 09-08-2023 Digital breast tomos ynthesis unilateral Franchesca Man PA-C Work Phone: Start: 09-02-2023 Cortisol total Comment on above: Please Note: The ref erence interval and flagging for this test is for an AM collection. If this is a PM collection please use: Cortisol PM: 2.3-11.9Performed at: [facility] [address] [id number] Director: Joby Hackett PhD, Phone: [phone] Start: 08-07-2023 Us breast uni real t garfield with image limited Franchesca FINNEGAN-C Work Phone: Start: 07-07-2023 Mammography of right breast DO Mariosimi Glasgow Work Phone: Start: 07-07-2023 Core needle biopsy o f breast using ultrasound guidance DO Mariosimi BryanPee Work Phone: Start: 06-03-2023 CT angiography of thorax DO Mariosimi BryanPee Work Phone: Start: 06-14-2022 Urine culture DO Mario R uggljodi Work Phone: Start: 05-02-2022 Total hysterectomy v ia vaginal approach DO Mariosimi BryanPee Work Phone: Start: 04-23-2022 SARS Antigen (LFIA) DO Mariosimi Glasgow Work Phone: Start: 04-10-2022 Urine culture DO Mario R krista Work Phone: Start: 06-19-2018 Cystoscopic removal of [...] urethral stricture Erin Lue H/O: hysterectomy Mariosimi Bryangl es Other Nephrostomy tube Erin Lue nephrostomy tube Erin Lue nephrostomy tube wit h last preg Erin Lue Other bilateral liga tion and division of fallopian tubes Erin Chavez Plan of Treatment Date Care Activity Detail Author Start: 12-29-2024 End: 12-29-2024 Patient encounter procedure 12/29/2024 11:15 AM EDT Office Visit [facility] [address] [place] [address] Tegan Guerra, MS [address] [place] [address] Everything [facility]MAFSHIN [facility]BARA [facility] Comment on above: Everything Start: 04-26-2024 Patient referral [facility] Work Phone: Start: 04-05-2024 End: 04-05-2024 Patient encounter procedure 04/05/2024 2:45 PM EST Office Visit Breast Center [address] [address] Anastasia Mon PA-C [address] [place], [place] [id number] 2 month [place] [facility] [place] [facility] Comment on above: 2 month [place] up[place] [facility] [place] Start: 02-17-2024 End: 05-18-2024 INSULIN LIK GR FAC I INSULIN LIK GR FAC I Lab Routine Obesity, Class II, BMI 35-39.9 Expected: 02/17/2024, Expires: 05/18/2024 [facility] Work Phone: Comment on above: Expected: 02/17/2024 , Expires: 05/18/2024 Start: 02-17-2024 End: 05-18-2024 Thyrotropin [Units/volume] in Serum or Plasma THYROID STIMULATING HORMONE Lab Routine Obesity, Class II, BMI 35-39.9 Expected: 02/17/2024, Expires: 05/18/2024 [facility] Comment on above: Expected: 02/17/2024 , Expires: 05/18/2024 Start: 02-17-2024 End: 02-17-2024 Patient encounter procedure 02/17/2024 1:00 PM EDT Office Visit Endocrinology [address] [place] [address] Devaughn Fitch MD [address] [facility] [address] [place] [address] hormone issue Endocrinology Comment on above: hormone issue Start: 01-19-2024 End: 01-19-2024 Patient encounter procedure 01/19/2024 2:45 PM EDT Office Visit Breast Center [address] [place] [address] Anastasia Mon PA-C [address] [place] [address] post op Breast Center Comment on above: post op Start: 01-08-2024 End: 01-08-2024 Admission to same day surgery center Ambulatory Surgery Comment on above: RIGHT ZAYDA EXCISIONA L BIOPSY Start: 01-08-2024 End: 01-08-2024 Exc breast les preop plmt rad marker open [address] [facility] Start: 01-08-2024 Subsequent hospital visit by physician Ambulatory Surgery Comment on above: Breast fibroadenoma, right [D24.1] Start: 01-08-2024 End: 01-08-2024 Admission to same day surgery center 01/08/2024 7:30 AM EDT - 01/08/2024 8:50 AM EDT Surgery Ambulatory Surgery [address] [place] [address] Adele Sutton MD [address] [place] [address] RIGHT ZAYDA EXCISIONAL BIOPSY Ambulatory Surgery Comment on above: RIGHT ZAYDA EXCISIONA L BIOPSY Start: 01-08-2024 End: 01-08-2024 Exc breast les preop plmt rad marker open 1 les EXCISION BREAST LESION IDENTIFIED BY PREOPERATIVE PLACEMENT RADIOLOGICAL MARKER, OPEN, SINGLE LESION Breast fibroadenoma, right 01/08/2024 7:[address] [facility] Start: 01-08-2024 Subsequent hospital visit by physician 01/08/2024 7:30 AM EDT Hospital Encounter Ambulatory Surgery [address] [place] [address] Adele Sutton MD [address] [place] [address] Breast fibroadenoma, right [D24.1] Ambulatory Surgery Comment on above: Breast fibroadenoma, right [D24.1] Start: 01-07-2024 End: 01-07-2024 Patient encounter procedure 01/07/2024 9:30 AM EDT Appointment Mammography [address] [address] zayda Mammography Comment on above: zayda Start: 12-31-2023 End: 12-31-2023 Anesthesia consultation 12/31/2023 3:00 PM EDT PAT Pre Anesthesia [address] [place], [place] [id number] virual preop Pre Anesthesia Comment on above: virual preop Start: 12-26-2023 Bacteria identified in Urine by Culture [facility] Start: 12-26-2023 End: 03-26-2024 CBC W Auto Differential panel - Blood COMPLETE BLOOD COUNT AND DIFFERENTIAL Lab Routine Preop testing Expected: 12/26/2023 (Approximate), Expires: 03/26/2024 [facility] Comment on above: Expected: 12/26/2023 (Approximate), Expires: 03/26/2024 Start: 12-26-2023 End: 03-26-2024 Comprehensive metabolic 2000 panel - Serum or Plasma COMPREHENSIVE METABOLIC PANEL Lab Routine Preop testing Expected: 12/26/2023 (Approximate), Expires: 03/26/2024 [facility] Work Phone: Comment on above: Expected: 12/26/2023 (Approximate), Expires: 03/26/2024 Start: 12-21-2023 Covid-19 Vaccine ( season) Covid-19 Vaccine () [facility] Start: 12-21-2023 Covid-19 Vaccine () Covid-19 Vaccine ( season) [facility] Start: 12-21-2023 Influenza vaccination C [facility] Start: 09-16-2023 End: 09-16-2023 Patient encounter procedure 09/16/2023 9:00 AM EDT Office Visit Breast Center [address] [address] Adele Sutton MD [address] [place] [address] New Consult Breast Center Comment on above: New Consult Start: 09-08-2023 End: 09-08-2023 Patient encounter procedure 09/08/2023 2:00 PM EDT Appointment Mammography [address] [address] RIGHT BREAST ULTRASOUND GUIDED CORE BIOPSY Mammography Comment on above: RIGHT BREAST ULTRASO UND GUIDED CORE BIOPSY Start: 08-07-2023 End: 11-06-2023 Thyrotropin [Units/volume] in Serum or Plasma THYROID STIMULATING HORMONE Lab Routine Nipple discharge Expected: 08/07/2023, Expires: 11/06/2023 [facility] Work Phone: Comment on above: Expected: 08/07/2023 , Expires: 11/06/2023 Start: 04-21-2023 Behavioral Health Screening Behavioral Health Screening [facility] Start: 12-20-2022 Covid-19 Vaccine () Covid-19 Vaccine () [facility] Start: 05-02-2022 [facility] Start: 04-25-2022 Total hysterectomy v ia vaginal approach OR Vag Hyster Lap Assist TLH/LAVH (Not Applicable) [facility] Start: 04-24-[address] [facility] Start: 04-24-2022 Hepatic function panel [facility] Start: 04-24-2022 Lipase measurement [facility] Start: 04-24-2022 [facility] Start: 2019 Screening for malign ant neoplasm of cervix HPV Testing [facility] Start: 02-06-2015 Screening for malign ant neoplasm of cervix Pap Testing [facility] Start: 04-15-2014 Hepatitis B Vaccine (3 of 3 - 19+ 3-dose series) Hepatitis B Vaccine (3 of 3 - 19+ 3-dose series) [facility] Start: 02-06-2013 Screening for malign ant neoplasm of cervix Cervical Cancer Screening [facility] Start: 02-19-2008 Hepatitis B Vaccine (1 of 3 - 19+ 3-dose series) Hepatitis B Vaccine (1 of 3 - 19+ 3-dose series) [facility] Start: 02-19-2008 Urine microalbumin profile DTaP,Tdap,Td Vaccine (1 - Tdap) [facility] Start: 2007 Anxiety Screening Anxiety Screening [facility] Start: 2007 Depression Screening Depression Scre ening [facility] Start: 2007 Hepatitis C screening Hepatitis C Sc reening [facility] Start: 2007 HIV screening HIV Screening [facility] Bacteria identified in Urine by Culture [facility] Bacteria identified in Urine by Culture [facility] Exc breast les preop plmt rad marker open 1 les EXCIS BREAST LES W XRAY MARKER Procedures Routine Breast fibroadenoma, right Ordered: 12/26/2023 [facility] Comment on above: Ordered: 12/26/2023 End: 09-04-2024 MG Breast - bilateral Diagnostic SAJI DIAGNOSTIC BILATERAL Radiology Routine Disorder of breast 1 Occurrences starting 08/06/2023 until 09/04/2024 [facility] Work Phone: Comment on above: 1 Occurrences starti ng 08/06/2023 until 09/04/2024 End: 01-24-2025 MG Guidance for needle localization of Breast - right SAJI NDL LOC W SAJI GD RIGHT Radiology Routine Breast fibroadenoma, right 1 Occurrences starting 12/26/2023 until 01/24/2025 [facility] Comment on above: 1 Occurrences starti ng 12/26/2023 until 01/24/2025 End: 04-11-2025 MR Breast - bilateral WO and W contrast IV MRI BREAST WO/W IVCON BILATERAL Radiology Routine Nipple discharge 1 Occurrences starting 03/12/2024 until 04/11/2025 [facility] Work Phone: Comment on above: 1 Occurrences starti ng 03/12/2024 until 04/11/2025 Patient Education Seizures, Adult ED [facility] Work Phone: Patient referral [facility] Work Phone: SURGICAL PATHOLOGY [facility] Work Phone: Comment on above: Release Upon Max yañez for 1 Occurrences starting 09/08/2023, 1 completed URINE FREE CORTISOL BY LC-MS/MS URINE FREE CORTISOL BY LC-MS/MS Lab Routine Obesity, Class II, BMI 35-39.9 Ordered: 02/17/2024 [facility] Comment on above: Ordered: 02/17/2024 [facility] Immunizations Immunization Date Immunization Notes Care Provider Tiffany workman 2014 influenza virus vaccine, unspecified formulation Franchesca Man PA-C Work Phone: [facility] NEGATED: Highlighted row has not occurred!05-16-2021 SARS-CoV-2 (COVID-19) Ad26 vaccine, recombinant Erin Scott [facility] Payers Date Payer Category Payer Self-pay [id number] 2022 Medicaid [employer] [id number] 2022-Present [phone] [address] [place] [address] Medicaid [id number] 1989 Unknown [id number] 2..840.1.062971.3.579.2.593 1989 Unknown [id number] 2.16840.1.488853.3.579.2.593 1989 Unknown [id number] 2.16.840.1.028640.3.579.2.593 1989 Unknown [id number] 2.16.840.1.561169.3.579.2.593 1989 Unknown [id number] 2.16.840.1.251067.3.579.2.593 1989 Unknown [id number] 2.16.840.1.731080.3.579.2.593 1989 Unknown [id number] 2.16.840.1.136727.3.579.2.593 1989 Unknown [id number] 2.16.840.1.125139.3.579.2.727 1989 Unknown [id number] 2.16.840.1.354301.3.579.2.727 1989 Unknown [id number] 2.16.840.1.590126.3.579.2.1259 1989 Unknown [id number] 2.16.840.1.497433.3.579.2.1259 1989 Unknown [id number] 2.16.840.1.599191.3.579.2.1259 1989 Unknown [id number] 2.16.840.1.128884.3.579.2.1259 1989 Unknown [id number] 2.16.840.1.687081.3.579.2.1259 1989 Unknown [id number] 2.16.840.1.071427.3.579.2.1259 1989 Unknown [id number] 2.16.840.1.628881.3.579.2.1259 1959 Medicaid [id number] 1959 Unknown [id number] 2.16.840.1.908478.19 Unknown Regular Auto/Liability [id number] Unknown [id number] 2.16.840.1.683266.3.579.2.531 Unknown [id number] 2.16.840.1.274564.3.579.2.531 Unknown [id number] 2.16.840.1.837247.3.579.2.531 Social History Date Type Detail Facility Start: 05-16-2021 End: 06-03-2023 Tobacco smoking status Never smoked tobacco (finding) [facility] [employer] Other Tobacco smoking status Never [facility] Pr[facility]ik Start: 01-13-2023 End: 08-07-[address] Female [facility] [employer] Other Start: 1990 Sex Assigned At Female [facility] Tobacco smoking status NHIS Tobacco smoking consumption unknown [facility] Start: 01-13-2023 End: 08-07-2023 History of Social function [facility] Start: 1990 Sex Assigned At Not on file [facility] Start: 12-26-2023 Tobacco use and exposure Smokeless tobacco non-user [facility] Start: 12-26-2023 End: 03-12-2024 Alcoholic beverage intake Current drinker of alcohol (finding) [facility] Start: 12-26-2023 Alcohol Comment socially [facility] Start: 01-06-2024 Alcohol Comment about 1-2 time s per month will have ~2 drinks [facility] Start: 04-26-2024 Sex Female (finding) [facility] NEGATED: Highlighted row [facility] Medical Equipment Procedure Code Equipment Code Equipment Origin al Text Equipment Identifier Dates Ultrasoujnd Clip [id number] Start: 09-08-2023 Comment on above: Description: Hydroma rk coil Ultrasound Zayda [id number] Start: 01-07-2024 Comment on above: Description: Zayda Goals Date Patient Goal Desired Activity /State Functional Status Date Assessment Result Facility 11-22-2022 Functional Status N/A [facility] Clinical Notes 03-06-2021 to 04-26-2024 Sharon Oro, RT(R) - 03/12/2024 10:30 AM Lori Cook RT(R) - 03/12/2024 10:30 AM Anastasia White PA-C - 03/12/2024 10:00 AM EST Note Date & Type Note Facility 04-26-2024 Hospital Discharge instructions Ambulatory OrdersReferral to Neurology Time Frame: 04/26/24, Location: None SelectedReferral to Pain Management Time Frame: 04/26/24, Location: None Selected [facility] Work Phone: 03-12-2024 History of Present illness Narrative Radiology [...] PATIENT PRESENTS WITH AN IMPLANTABLE OR ATTACHED ACCESS LEAD: No RADIOLOGY DEPARTMENT: Mammography PERIPHERAL IV DATA: Not applicable SIGNED BY: RT Tereso(R) March 12, 2024 10:48 AM Radiology Service [...] PATIENT PRESENTS WITH AN IMPLANTABLE OR ATTACHED ACCESS LEAD: No RADIOLOGY DEPARTMENT: Mammography PERIPHERAL IV DATA: Not applicable SIGNED BY: RT Latia(R) March 12, 2024 11:41 AM documented in this encounter [facility] 03-12-2024 Note HNO ID: [id number] Author: SHARON ORO RT(R) Service: ? Author Type: Technologist Type: Progress [...] PATIENT PRESENTS WITH AN IMPLANTABLE OR ATTACHED ACCESS LEAD: No RADIOLOGY DEPARTMENT: Mammography PERIPHERAL IV DATA: Not applicable SIGNED BY: RT Tereso(R) March 12, 2024 10:48 AM [facility] 03-12-2024 Note HNO ID: [id number] Author: LORI MCNEILL RT(R) Service: Radiology Author [...] PATIENT PRESENTS WITH AN IMPLANTABLE OR ATTACHED ACCESS LEAD: No RADIOLOGY DEPARTMENT: Mammography PERIPHERAL IV DATA: Not applicable SIGNED BY: RT Latia(R) March 12, 2024 11:41 AM [facility] 03-12-2024 History of Present illness Narrative Images from the original note were not included. [facility] Department of Breast Surgical Oncology [facility] FOLLOW UP HPI: Sully Enriquez is a [...] Strain: Low Risk (12/17/2023) Received from [facility] Overall Financial Resource Strain (CARDIA) Difficulty of Paying Living Expenses: Not hard at all Food Insecurity: No Food Insecurity (12/17/2023) Received from [facility] Hunger Vital Sign Within the past 12 months, you worried that your food would run out before you got the money to buy more.: Never true Transportation Needs: No Transportation Needs (12/17/2023) Received from [facility] Transportation In the past 12 months, has lack of transportation kept you from medical appointments or from getting medications?: No Housing Stability: Low Risk (12/17/2023) Received from [facility] Housing Stability Vital Sign In the last 12 months, was there a time when you did not have a steady place to sleep or slept in a usp (including now)?: No FAMILY HISTORY: Family history [...] No history of dysuria, frequency or incontinence DYNAMOMETER TUNER: Negative for abnormal vaginal bleeding, abnormal vaginal [...] with the Patient or Patient's Authorized Manager Applied. As applicable, any other physician, advance practice provider, medical student, or other health professional student that will be observing or involved in the sensitive examination for educational or training purposes was discussed with the Patient or Authorized Manager Applied. The Patient or Authorized Manager Applied has agreed to proceed with the sensitive [...] which included preparing to see the patient, [id number] patient care, completing clinical documentation, obtaining and/or reviewing separately obtained history, performing a medically appropriate examination, counseling and educating the patient/family/caregiver, ordering medications, tests, or procedures, and communicating results to the patient/family/caregiver. Anastasia Mon PA-C documented in this encounter [facility] 03-12-2024 Note HNO ID: [id number] Author: ANASTASIA MON PA-C Service: ? Author Type: Physician Sales Correspondent Type: Progress Notes Filed: 03/15/2024 16:18 Note Text: [facility] [place] Department of Breast Surgical Oncology [facility] FOLLOW UP HPI: Sully Enriquez is a [...] Strain: Low Risk (12/17/2023) Received from [facility] Overall Financial Resource Strain (CARDIA) Difficulty of Paying Living Expenses: Not hard at all Food Insecurity: No Food Insecurity (12/17/2023) Received from [facility] Hunger Vital Sign Within the past 12 months, you worried that your food would run out before you got the money to buy more.: Never true Transportation Needs: No Transportation Needs (12/17/2023) Received from [facility] Tr (more content not included)... 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 Seizure-like activity acute Apr 2:25pm Spasm of muscle of lower back noneactive April 26 2:25pm Weakness of right leg noneactive Apr 2:25pm Numbness and tingling of right arm noneactive April 26 2:25pm [facility] Work Phone: 1(147) 740-906610-29-2024 Instructions* Patient Instructions* Devaughn Fitch MD - 02/17/2024 1:53 PM EDT 24 hour urine collection: -go to lab to cook pickled meat container -start collecting urine one morning -flush first urine that morning down toilet, then collect all urine after that in container until the following morning (include first urine of that morning into collection) -keep urine refrigerated during collection -drop off urine after collection is finished and get a blood test done that day [facility] History of Present illness Narrative* Devaughn Fitch MD - 02/17/2024 1:00 PM EDT Images from the original note were not included. ENDOCRINOLOGY REASON FOR CONSULTATION: Nipple discharge The patient is referred by Mollie J Greenhouse, PA-C. My recommendations will be sent to [...] No rash. LABS RESULTS: Recent Data from [facility] Healthcare Related to Prolactin Component 06/18/23 06/24/19 PROLACTIN 5.4 6.6 ASSESSMENT & PLAN: Sully Enriquez is a 33 year old female here for evaluation of nipple discharge. (N64.52) Discharge from right nipple (primary encounter diagnosis) Comment: Unilateral. Normal prolactin. Not hormonally-mediated discharge. Plan: ENDOCRINE CONSULTATION (E66.932) Obesity, Class II, BMI 35-39.9 Comment: Since age 26. Unclear cause. I discuss with Pt about some elements related to nutrition. Will do some tests to r/o some endocrine causes. I offered Pt to establish care in Endocrine Weight Management. She mentioned she would reestablish care in clinic she used to go in [place]. Plan: INSULIN LIK GR FAC I, THYROID STIMULATING HORMONE, URINE FREE CORTISOL BY LC-MS/MS I spent a total of 59 minutes on the date of the service which included preparing to see the patient, [id number] patient care, completing clinical documentation, obtaining and/or reviewing separately obtained history, performing a medically appropriate examination, counseling and educating the pat ient/family/caregiver, and ordering medications, tests, or procedures. Return to office: TBD Devaughn Fitch MD c.c. Franchesca Man PA-C. documented in this [facility]-2024 NoteHNO ID: [id number] Author: DEVAUGHN FITCH MD Service: ? Author Type: Physician Type: [...] no acute distr (more content not included)... [facility]10-11-2024 History of Present illness Narrative* Lori Mcneill RT(R) - 01/30/2024 10:15 AM EDT Radiology Service Progress Note PATIENT NAME: Sully Enriquez DATE OF SERVICE: January 30, 2024 TIME: 10:28 AM PATIENT IDENTITY VERIFICATION COMPLETED USING TWO (2) IDENTIFIERS: Name and Date of confirmedby patient verbally. FALL SCREENING: Has the patient had 2 falls in the last year or 1 fall with injury or currently using an Ambulatory Assistive Device (Walker, Cane, Wheelchair, Crutches, etc.)? No PATIENT GENDER DATA: Female. status: : No status: NO. PATIENT RELEVANT IMPLANT DATA REVIEWED: Not Applicable PATIENT PRESENTS WITH AN IMPLANTABLE OR ATTACHED ACCESS LEAD: No RADIOLOGY DEPARTMENT: Mammography PERIPHERAL IV DATA: Not applicable SIGNED BY: RT Latia(Jd) January 30, 2024 10:28 AM documented in this encounter[facility]-2024 NoteHNO ID: [id number] Author: LORI MCNEILL RT(R) Service: Radiology Author [...] PATIENT PRESENTS WITH AN IMPLANTABLE OR ATTACHED ACCESS LEAD: No RADIOLOGY DEPARTMENT: Mammography PERIPHERAL IV DATA: Not applicable SIGNED BY: RT Latia(Jd) January 30, 2024 10:28 [facility]10-11-2024 History of Present illness Narrative* Anastasia Mon PA-C - 01/30/2024 9:30 AM EDT Images from the original note were not [...] that time, she was doing well from surgeryand had no additional breast concerns. Patient reports about 4-5 days ago she experienced bloody discharge from the right nipple while manipulating her breast. She noted a second occurrence of bloodynipple discharge which was spontaneous the next day. She has not noticed any subsequent episodes ofnipple discharge although she feels the right nipple was slightly inverting last night. She reportsa distant history of clear nipple discharge several months ago. Ms. Enriquez also noticed two new non-tender lumps in the right breast about 1 week ago- one quarter-sized in the superior breast and the other pea-sized lump in the inferior breast which are not near her surgical site. Patient has limited contact with paternal side of family, however, in the past couple weeks she haslearned that 3 paternal aunts have had breast [...] documentation), patient reports 11 siblings total and unsureof # of females Ashkenazi Ancestry: no Has [...] No history of dysuria, frequency or incontinence DYNAMOMETER TUNER: Negative for abnormal vaginal bleeding, abnormal vaginal [...] elicited on exam. Well healing surgical incision inLOQ. Lymphadenopathy: Upper Body: Right upper body: No axillary adenopathy. Left upper body: No axillary adenopathy. The sensitive examination was discussed with the Patient or Patient's Authorized Manager Applied. Asapplicable, any other physician, advance practice provider, medical student, or other health professional student that will be observing or involved in the sensitive examination for educational or training purposes was discussed with the Patient or Authorized Manager Applied. The Patient or Authorized Manager Applied has agreed to proceed with the sensitive [...] 10 year projected risk of developing invasive breastcancer is 2% and her lifetime risk of [...] which included preparing to see the patient, fgmw-vm-kdog patient care, completing clinical documentation, performing a medically appropriate examination, counseling and educating the patient/family/caregiver, ordering medications, tests, or procedures, independently interpreting results (not separately reported), and communicating results to the patient/family/caregiver. Anastasia Mon PA-C documented in this encounterAvita [facility] System10-11-2024 NoteHNO ID: [id number] Author: ANASTASIA MON PA-C Service: ? Author Type: Physician Sales Correspondent Type: Progress Notes Filed: 01/30/2024 13:52 Note [...] as needed for sanket (more content not included)...[facility]09-30-2024 History of Present illness Narrative* Anastasia Mon PA-C - 01/19/2024 2:45 PM EDT Images from the original note were not [...] concerns. Anastasia Mon PA-C documented in this encounterAvita Health System09-30-2024 NoteHNO ID: [id number] Author: ANASTASIA MON PA-C Service: ? Author Type: Physician Sales Correspondent Type: Progress Notes Filed: 01/19/2024 15:40 Note [...] were answered; patient has no further concerns. [facility]09-20-2024 Telephone encounter Note* Telephone Encounter - Kobe Wallis - 01/09/2024 4:33 PM EDT Returned call and spoke to pt. Pt stated she is alternating tylenol and ibuprofen and also took Neurontin last night. Pt stated, nothing helped. Pt also stated that she feels nauseous and thinks its from the pain. Spoke withDr. Sutton while in clinic, she will order additional medication for pt. [facility] Miscellaneous Notes* Telephone Encounter - Kobe Wallis - 01/09/2024 4:33 PM EDT Returned call and spoke to pt. Pt stated she is alternating tylenol and ibuprofen and also took Neurontin last night. Pt stated, nothing helped. Pt also stated that she feels nauseous and thinks its from the pain. Spoke withDr. Sutton while in clinic, she will order additional medication for pt. * Telephone Encounter - Anyi Cheatham - 01/09/2024 1:54 PM EDT Patient called stating that since last night she is experiencing right side pain and arm movement makes it worse (level 8), warm to touch, nausea. Patient can be reached at [phone]. Thanks documented in this encounterAvita Health System09-20-2024 Telephone encounter Note * Telephone Encounter - Anyi Cheatham - 01/09/2024 1:54 PM EDT Patient called stating that since last night she is experiencing right side pain and arm movement makes it worse (level 8), warm to touch, nausea. Patient can be reached at [phone]. Thanks [facility]24 NoteHNO ID: [id number] Author: KRANTHI HARRIS AA Service: ? Author Type: Inspector Missile Type: Anesthesia Procedure Notes Filed: 01/08/2024 09:21 [...] January 08, 2024 TIME: 9:19 AM CSN: [id number] [facility]als [facility]09-[facility]-2024 NoteHNO ID: [id number] Author: KRANTHI HARRIS AA Service: ? 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 and patient Staffing CAA: Kranthi Harris AA [...] January 08, 2024 TIME: 7:49 AM CSN: [id number] [facility]als [facility]09-18-2024 Instructions* Patient Education - Masha Johnston Tech - 01/07/2024 9:45 AM EDT AMBULATORY PATIENT EDUCATION RADIOLOGY TOPIC: Pre- Procedure [...] SUPPLEMENTAL MATERIAL: Homegoing instructions REFERRAL (RECOMMENDATION): None [facility] Miscellaneous Notes* Patient Education - Masha Johnston Tech - 01/07/2024 9:45 AM EDT AMBULATORY PATIENT EDUCATION RADIOLOGY TOPIC: Pre- Procedure [...] instructions REFERRAL (RECOMMENDATION): None documented in this encounterAvita Health System09-17-2024 Telephone encounter Note * Telephone Encounter - Camila Russo PA-C - 01/06/2024 2:[address] Sutton, I saw this patient today for a virtual PACC visit - scheduled for surgery with you on 01/07. Patient reports she has a rash of left breast that had a blister - the blister resolved but rash isstill present, she reports it may have been [...] Russo PA-C January 06, 2024 2:13 PM [facility] Miscellaneous Notes* Telephone Encounter - Camila Russo PA-C - 01/06/2024 2:[address] Sutton, I saw this patient today for a virtual PACC visit - scheduled for surgery with you on 01/07. Patient reports she has a rash of left breast that had a blister - the blister resolved but rash isstill present, she reports it may have been [...] 06, 2024 2:13 PM documented in this encounterAvita Health System09-17-2024 Instructions* Patient Instructions* Camila Russo PA-C - 01/06/2024 2:07 PM EDT PATIENT PREOPERATIVE INSTRUCTIONS Adele Sutton, * has scheduled you for your procedure at this surgery center: [facility]: [phone] --[address] [place] [address] Location is near [facility]. Arrival Time for Surgery: - The Surgery [...] Procedures: - YOU MUST HAVE A RESPONSIBLE INSPECTING SUPERVISOR TAKE YOU HOME. A TOLL MECHANIC OR TOURS HOSTESS CANNOT BE MADE A RESPONSIBLE INSPECTING SUPERVISOR. - We recommend that a responsible person stays with you overnight to take care of you. - You cannot stay in a hotel alone after outpatient surgery. You will not be permitted to have yoursurgery, if you do not have someone to take care of you. If you already have an Advance Directive, please fax a copy to [phone] or email to for it to be added to your chart. If you do not have an Advance Directive, you can find the appropriate form and more information at [email or web address]. We recommend that youcomplete the Advance Directive form found on the website and bring it with you the day of your surgery. It can be witnessed and scanned into your chart that day. Camila Russo PA-C documented in this encounterAvita Health System09-17-2024 History and physical note * Camila Russo PA-C - 01/06/2024 1:51 PM EDT Images from the original note were not [...] Cruz present: no Lip Bite Test: II Microretrognathia/Micronagthia/Recessed Chin: No DENTAL Dental findings: teeth intact. II - ANESTHESIA PLAN Anesthetic plan additional comments: - anesthesia choice. Beta Jimmie Monitoring Plan Post Procedure Analgesic Plan Prepared for Surgery: optimally prepared for surgery, pending [see comment]. 1. Telephone encounterto surgeon re. Breast rash/lump 2. Patient to get pre-op labs tomorrow CONSULTS: Patient does not require consults for optimization at this time Planned Anesthetic: anesthesia choice The Following Tests/Procedures Have Been Initiated: Labs ordered by surgeon This is a virtual visit using [employer] video visit. It required patient-provider interaction for themedical decision making as documented below. REASON FOR [...] right breast fibroadenoma is scheduled for the aboveprocedure and presents to the PACC for pre-operative examination. Patient reports she feels a rightbreast lump, noticed it first ~06/2023. It is painful. She is unclear if it has grown in size. This is a virtual visit. The visit was conducted using [employer] video visit. It required patient-provider interaction for the medical decision making as documented below. I have communicated my name and active licensure. The patient's identity and physical location wereverified at the time of this visit. Either the patient or their legal fundraising sale representative has been informed of the risks [...] chest pain, CHF, DVT/PE, hyperlipidemia, hypertension, recent [place], PTCA, PVD and open heart surgery. GI: Negative for: dysphagia, GERD, GI bleed <30 days, liver disease and ETOH >2 drinks/day. : +hx recurrent UTIs, recently tx'd for infection, finished course of antibiotic, sxs resolved Positive for: nephrolithiasis (IN PAST, had surgery). Negative for: dysuria, frequent urination, hematuria, urinary incontinence and renal failure. DYNAMOMETER TUNER: Negative for abnormal vaginal bleeding, abnormal vaginal discharge. Endocrine: Negative for: diabetes mellitus, hyperthyroidism, hypothyroidism and steroid for chronic problem. Hematology: Negative for: anemia, factor V Leiden, hemophilia and chronic anti- coagulation/platelet meds. Oncology: Negative for: CA metastasis, chemo [...] HISTORY OF colonoscopy x 2 SALPINGECTOMY Bilateral 2011 FAMILY HISTORY Problem Relation Age of Onset [...] or any previous visit (from the past 31335 hour(s)). Instructions Given to Patient: Instructions located in the after visit summary. Patient given verbal and written preop instructions and voices comprehension and compliance. SIGNATURE: Camila Russo PA-C PATIENT NAME: Sully Enriquez DATE: January 06, 2024 TIME: 1:51 PM PAGER/CONTACT #: [facility] History and physical note* Camila Russo PA-C - 01/06/2024 1:51 PM EDT Images from the original note were not [...] Cruz present: no Lip Bite Test: II Microretrognathia/Micronagthia/Recessed Chin: No DENTAL Dental findings: teeth intact. II - ANESTHESIA PLAN Anesthetic plan additional comments: - anesthesia choice. Beta Jimmie Monitoring Plan Post Procedure Analgesic Plan Prepared for Surgery: optimally prepared for surgery, pending [see comment]. 1. Telephone encounterto surgeon re. Breast rash/lump 2. Patient to get pre-op labs tomorrow CONSULTS: Patient does not require consults for optimization at this time Planned Anesthetic: anesthesia choice The Following Tests/Procedures Have Been Initiated: Labs ordered by surgeon This is a virtual visit using My[employer] video visit. It required patient-provider interaction for themedical decision making as documented below. REASON FOR [...] right breast fibroadenoma is scheduled for the aboveprocedure and presents to the PACC for pre-operative examination. Patient reports she feels a rightbreast lump, noticed it first ~06/2023. It is painful. She is unclear if it has grown in size. This is a virtual visit. The visit was conducted using [employer] video visit. It required patient-provider interaction for the medical decision making as documented below. I have communicated my name and active licensure. The patient's identity and physical location wereverified at the time of this visit. Either the patient or their legal fundraising sale representative has been informed of the risks [...] chest pain, CHF, DVT/PE, hyperlipidemia, hypertension, recent AZ, PTCA, PVD and open heart surgery. GI: Negative for: dysphagia, GERD, GI bleed <30 days, liver disease and ETOH >2 drinks/day. : +hx recurrent UTIs, recently tx'd for infection, finished course of antibiotic, sxs resolved Positive for: nephrolithiasis (IN PAST, had surgery). Negative for: dysuria, frequent urination, hematuria, urinary incontinence and renal failure. DYNAMOMETER TUNER: Negative for abnormal vaginal bleeding, abnormal vaginal discharge. Endocrine: Negative for: diabetes mellitus, hyperthyroidism, hypothyroidism and steroid for chronic problem. Hematology: Negative for: anemia, factor V Leiden, hemophilia and chronic anti- coagulation/platelet meds. Oncology: Negative for: CA metastasis, chemo [...] Prior to Admission medications as of 01/06/24 3237 Medication Sig Last Dose Taking tizanidine HCl [...] or any previous visit (from the past 17399 hour(s)). Instructions Given to Patient: Instructions located in the after visit summary. Patient given verbal and written preop instructions and voices comprehension and compliance. SIGNATURE: Camila Russo PA-C PATIENT NAME: Sully Enriquez DATE: January 06, 2024 TIME: 1:51 PM PAGER/CONTACT #: documented in this encounterAvita Health System09-13-2024 Telephone encounter Note * Telephone Encounter - Salina Dickinson PA-C - 01/02/2024 11:24 AM EDT This patient was scheduled with me today for virtual PACC visit. She checked in for appointment at 10:57 AM. I signed into visit at 11:05 AM and noticed that patient was no longer connected to visit.I placed a telephone call to patient and left a voicemail offering assistance with signing in so wecould get reconnected. Patient did not return my call. I called again 5 minutes later to check in again and patient did not answer the phone. She did not return my call nor did she sign back into visit. PACC visit was not completed. Can you please contact patient to reschedule? Thank you! Salina Dickinson PA-C PACC [facility] Work Phone: [phone] Miscellaneous Notes* Telephone Encounter - Salina Dickinson PA-C - 01/02/2024 11:24 AM EDT This patient was scheduled with me today for virtual PACC visit. She checked in for appointment at 10:57 AM. I signed into visit at 11:05 AM and noticed that patient was no longer connected to visit.I placed a telephone call to patient and left a voicemail offering assistance with signing in so wecould get reconnected. Patient did not return my call. I called again 5 minutes later to check in again and patient did not answer the phone. She did not return my call nor did she sign back into visit. PACC visit was not completed. Can you please contact patient to reschedule? Thank you! Salina Dickinson PA-C PACC documented in this encounterAvita Health System09-11-2024 Telephone encounter Note * Telephone Encounter - Tamika Camacho APRN.CNP - 12/31/2023 3:03 PM EDT Patient was scheduled for virtual PACC appt at 1500 today. Patient did not check in for visit. Called patient at 1505, stated they forgot and needed to reschedule This message routed to PACC schedulers to contact patient to reschedule PACC appt. Tamika Camacho APRN.CNP [facility] Work Phone: [phone] 198-458609-11-2024 Miscellaneous Notes* Telephone Encounter - Tamika Camacho APRN.CNP - 12/31/2023 3:03 PM EDT Patient was scheduled for virtual PACC appt at 1500 today. Patient did not check in for visit. Called patient at 1505, stated they forgot and needed to reschedule This message routed to PACC schedulers to contact patient to reschedule PACC appt. Tamika Camacho APRN.CNP documented in this encounterAvita Health System09-09-2024 Telephone encounter Note * Telephone Encounter - Edgard Cole MD - 12/29/2023 12:19 PM EDT I have reviewed and approved the localization plan. Images dated 09/08/2023 are annotated. Radiologist: Edgard Cole MD [facility] Work Phone: 1(569) 936-145709-09-2024 Miscellaneous Notes* Telephone Encounter - Edgard Cole MD - 12/29/2023 12:19 PM EDT I have reviewed and approved the localization plan. Images dated 09/08/2023 are annotated. Radiologist: Edgard Cole MD * Telephone Encounter - Kobe Wallis - 12/26/2023 3:22 PM EDT LOCALIZATION IMAGE REVIEW (Please do NOT submit until entire workup complete) (if > 3 reflectors to be placed in one breast, please review with radiologist) Sully Enriquez [id number] 1990 WORK- UP COMPLETE? Yes Order Placed Yes Right - Site 1 Location 8:00 4-5cm fn Clip Shape Coil Clip Clip Migration No Pathology FibroAdenoma Preferred Localization zayda * If clip migrated, please review with radiologist This Form Has Been Completed By Kobe Wallis On Behalf Of Dr. Sutton documented in this encounterAvita Health System09-06-2024 Telephone encounter Note * Telephone Encounter - Kobe Wallis - 12/26/2023 3:22 PM EDT LOCALIZATION IMAGE REVIEW (Please do NOT submit until entire workup complete) (if > 3 reflectors to be placed in one breast, please review with radiologist) Sully Cullen Zoe [id number] 1990 WORK- UP COMPLETE? Yes Order Placed Yes Right - Site 1 Location 8:00 4-5cm fn Clip Shape Coil Clip Clip Migration No Pathology FibroAdenoma Preferred Localization zayda * If clip migrated, please review with radiologist This Form Has Been Completed By Kobe Wallis On Behalf Of Dr. Sutton [facility] History and physical note* Adele Sutton MD - 12/26/2023 1:00 PM EDT Images from the original note were not included. [facility] [place] Department of General Surgery [facility] REASON for TODAY'S VISIT: Patient presents with: New Patient REFERRAL: Referring Provider: Franchesca Man PCP: Keli Strickland NP, SEMICONDUCTOR LAB TECHNICIAN My clinic note and plan will be communicated back to the referring physician by way of shared medical record and/or written letter via US mail. HISTORY of PRESENT ILLNESS: Sully Enriquez is a 33 year old White premenopausal female who presents today accompanied by her friend, Maliha, regarding a recently diagnosed RIGHT breast fibroadenoma first identified on self exam in06/2023. It has not changed in size since [...] - Self palpated RIGHT breast mass. 06/25/23 ([facility]) - diagnostic bilateral mammogram/US - diffuse heterogenous density. In theright breast at 8:00 approximately 4 to 5 cm from the nipple, is a hypoechoic avascular area that measures 2.0 x 1.6 x 1.1 cm. In the right upper outer quadrant of the breast at 2.8 x 1.0 x 2.8 cm lymph node is seen. There is no cortical thickening. 07/07/23 ([facility] - US guided CNB 8:00 4-5 [...] with coil clip placement: Fibroadenoma.Concordant. BREAST & DYNAMOMETER TUNER RELATED HISTORY: Prior biopsies: as above Prior surgeries: as above Implants: No Contraceptive use: Current: none Past: OCPs in 2011 at age 20 Exogenous hormone use: none Prior radiation: There is no history of Radiation Therapy. 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 Stays [...] . Physical Exam Exam conducted with a administrative library assistant present. Constitutional: General: She is not in [...] Judgment normal. Ptosis: Grade II BREAST IMAGING: [facility] Breast Imaging was reviewed. Excerpts from Breast Imaging Studies Results US BREAST LTD RIGHT ([id number]) (Order [id number]) Patient Info Patient Name Sex Sully Adam ([id number]) Female 1990 08/07/2023 1:24 PM - Radiology, [place] In Impression IMPRESSION: BENIGN FINDING No sonographic abnormality at the site of clinical concern at 9:00. Circumscribed mass right breast 8:00 which is previously biopsied and reportedly benign. Clinical follow-up is recommended. Annual screening mammogram is recommended per NCCN guidelines based on patient's risk factors for breast cancer. Janes Winston M.D. ns/:08/07/2023 13:24:03 Director Of Social Services(s): RT Mirtha(R)(M), [facility] Ultrasound BI-RADS: 2 Benign finding Multiple national specialty organizations have released breast cancer screening guidelines for women at average risk for developing breast cancer - guidelines that are based on both evidence and opinion, yet differ on when to start and how often to screen for breast cancer. With representation from Breast Imaging, Internal Medicine, [facility], Family Medicine, and Medical/Surgical Oncology, the [facility] has carefully reviewed the data and reached [...] providers when to stop screening mammograms. Director Medical: Aracely Transcribe Date/Time: Aug 07 2023 11:56A Dictated by : JANES WINSTON MD This examination was interpreted and the report reviewed and electronically signed by: JANES WINSTON MD on Aug 07 2023 1:24PM EST Results-Findings * * *Final Report* * * DATE OF EXAM: Aug 07 2023 12:08PM Mykel 0594 - [facility] Signix BREAST Likelii RT / PROCEDURE REASON: multiple diagnoses * * * * Physician Interpretation * * * * RESULT: #[id number] - [facility] Signix BREAST LTD RT LIMITED ULTRASOUND OF RIGHT [...] biopsied mass which is reportedly benign. Results [facility] DIAG W DOMINIC RIGHT ([id number]) (Order [id number]) Patient Info Patient Name Sex Sully Adam ([id number]) Female 1990 09/11/2023 2:33 PM - Radiology, Oru In Addenda * * *Final Report* * * * * * SEE BOTTOM OF REPORT FOR ADDENDED TEXT * * * DATE OF EXAM: Sep 08 2023 2:52PM [facility] 0629 - [facility] DIAG W DOMINIC RT / PROCEDURE REASON: multiple diagnoses * * * * Physician Interpretation * * * * RESULT: FINAL REPORT #[id number] - [facility] DIAG W DOMINIC RT #[id number] - [facility] US BIOPSY BREAST RT ULTRASOUND GUIDED BIOPSY [...] Almanzar performed the entire procedure without an human resources office assistant. Audible Time Out Time: 1420 Procedure [...] location, four cores were obtained using a Workday biopsy device. A Cmune open coil clip was inserted into the [...] surgical consultation. Lea Almanzar M.D., jr/aracely:09/11/2023 14:32:49 Director Of Social Services(s): RT Mane(Jd)(M), [facility] Multiple national specialty organizations have released breast cancer screening guidelines for women at average risk for developing breast cancer - guidelines that are based on both evidence and opinion, yet differ on when to start and how often to screen for breast cancer. With representation from Breast Imaging, Internal Medicine, Women's Health, Family Medicine, and Medical/Surgical Oncology, the [facility] has carefully reviewed the data and reached [...] providers when to stop screening mammograms. Director Medical: Aracely Transcribe Date/Time: Sep 08 2023 2:52P Dictated by : LEA ALMANZAR MD This examination was interpreted and the report reviewed and electronically signed by: LEA ALMANZAR MD on Sep 08 2023 4:24PM EST This document has been addended by: LEA ALMANZAR MD on Sep 11 2023 2:32PM EST PATHOLOGY: SURGICAL PATHOLOGY: [id number] Order: [id number] Collected 09/08/2023 2:04 PM Status: Final result [...] to ask questions. Additional workup needed: ZAYDA lease out man placement by BOTH (coil + unspecified) clips in RIGHT breast - fibroadenoma Interdisciplinary care and follow up: SURGICAL ONCOLOGY: Adele Sutton MD Tentative surgical plan: RIGHT breast ZAYDA-Manipulator Operator guided excision Consents were sent via [employer]. Postoperative analgesia was discussed. She WILL need prescriptions for tylenol, motrin, & gabapentin on the day of surgery. GLP-1 agonist or SGLT2 inhibitor use: No PRIMARY CARE PHYSICIAN: Ms. Enriquez is followed by Keli Strickland NP, SEMICONDUCTOR LAB TECHNICIAN as scheduled. Ms. Enriquez will return to our office postoperatively. She has our names and numbers to contact us if she has any questions or concerns. Future Appointments Date Time Provider Department Center 02/17/2024 1:00 PM [facility]onal[facility] MD, FACOG Breast Surgical Oncology & Benign Gynecology [facility] [address] [place], [place] [address] [place] [address] Appointment cc: Franchesca Arenas Donovan [address] [place] [address] Keli Strickland NP, SEMICONDUCTOR LAB TECHNICIAN I spent a total of 30 minutes on the date of the service which included preparing to see the patient, mbjt-[id number]-bqmo patient care, completing clinical documentation, obtaining and/or reviewing separately obtained history, performing a medically appropriate examination, and counseling and educating the patient/family/caregiver. [facility]09-06-2024 History and physical note* Adele Sutton MD - 12/26/2023 1:00 PM EDT Images from the original note were not included. [facility] [place] Department of General Surgery [facility] REASON for TODAY'S VISIT: Patient presents with: New Patient REFERRAL: Referring Provider: Franchesca Man PCP: Keli Strickland NP, SEMICONDUCTOR LAB TECHNICIAN My clinic note and plan will be communicated back to the referring physician by way of shared medical record and/or written letter via US mail. HISTORY of PRESENT ILLNESS: Sully Enriquez is a 33 year old White premenopausal female who presents today accompanied by her friend, Maliha, regarding a recently diagnosed RIGHT breast fibroadenoma first identified on self exam in06/2023. It has not changed in size since [...] - Self palpated RIGHT breast mass. 06/25/23 ([facility]) - diagnostic bilateral mammogram/US - diffuse heterogenous density. In theright breast at 8:00 approximately 4 to 5 cm from the nipple, is a hypoechoic avascular area that measures 2.0 x 1.6 x 1.1 cm. In the right upper outer quadrant of the breast at 2.8 x 1.0 x 2.8 cm lymph node is seen. There is no cortical thickening. 07/07/23 ([facility] - US guided CNB 8:00 4-5 [...] with coil clip placement: Fibroadenoma.Concordant. BREAST & DYNAMOMETER TUNER RELATED HISTORY: Prior biopsies: as above Prior surgeries: as above Implants: No Contraceptive use: Current: none Past: OCPs in 2011 at age 20 Exogenous hormone use: none Prior radiation: There is no history of Radiation Therapy. 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 Stays [...] . Physical Exam Exam conducted with a administrative library assistant present. Constitutional: General: She is not in [...] Judgment normal. Ptosis: Grade II BREAST IMAGING: [facility] Breast Imaging was reviewed. Excerpts from Breast Imaging Studies Results US BREAST LTD RIGHT (Acc#[id number]) (Order [id number]) Patient Info Patient Name Sex Sully Adam ([id number]) Female 1990 08/07/2023 1:24 PM - Radiology, Oru In Impression IMPRESSION: BENIGN FINDING No sonographic abnormality at the site of clinical concern at 9:00. Circumscribed mass right breast 8:00 which is previously biopsied and reportedly benign. Clinical follow-up is recommended. Annual screening mammogram is recommended per NCCN guidelines based on patient's risk factors for breast cancer. Janes Winston M.D. ns/:08/07/2023 13:24:03 Director Of Social Services(s): RT Mirtha(R)(M), [facility] [place] [facility] BI-RADS: 2 Benign finding Multiple national specialty organizations have released breast cancer screening guidelines for women at average risk for developing breast cancer - guidelines that are based on both evidence and opinion, yet differ on when to start and how often to screen for breast cancer. With representation from Breast Imaging, Internal Medicine, [facility], Family Medicine, and Medical/Surgical Oncology, the [facility] has carefully reviewed the data and reached [...] providers when to stop screening mammograms. Director Medical: Aracely Transcribe Date/Time: Aug 07 2023 11:56A Dictated by : JANES WINSTON MD This examination was interpreted and the report reviewed and electronically signed by: JANES WINSTON MD on Aug 07 2023 1:24PM EST Results-Findings * * *Final Report* * * DATE OF EXAM: Aug 07 2023 12:08PM [facility] 0594 - SAJI US BREAST LTD RT / PROCEDURE REASON: multiple diagnoses * * * * Physician Interpretation * * * * RESULT: #[id number] - [facility] US BREAST LTD RT LIMITED ULTRASOUND OF [...] biopsied mass which is reportedly benign. Results [facility] DIAG W DOMINIC RIGHT (Acc#[id number]) (Order [id number]) Patient Info Patient Name Sex Sully Adam ([id number]) Female 1990 09/11/2023 2:33 PM - Radiology, Oru In Addenda * * *Final Report* * * * * * SEE BOTTOM OF REPORT FOR ADDENDED TEXT * * * DATE OF EXAM: Sep 08 2023 2:52PM [facility] - [facility] DIAG W DOMINIC RT / PROCEDURE REASON: multiple diagnoses * * * * Physician Interpretation * * * * RESULT: FINAL REPORT #[id number] - [facility]JI DIAG W DOMINIC RT #[id number] - [facility] US BIOPSY BREAST RT ULTRASOUND GUIDED BIOPSY [...] Almanzar performed the entire procedure without an human resources office assistant. Audible Time Out Time: 1420 Procedure [...] surgical consultation. Lea Almanzar M.D., jr/aracely:09/11/2023 14:32:49 Director Of Social Services(s): Maritza Rashaun, RT(R)(M), [facility] Multiple national specialty organizations have released breast cancer screening guidelines for women at average risk for developing breast cancer - guidelines that are based on both evidence and opinion, yet differ on when to start and how often to screen for breast cancer. With representation from Breast Imaging, Internal Medicine, Women's Health, Family Medicine, and Medical/Surgical Oncology, the [facility] has carefully reviewed the data and reached [...] providers when to stop screening mammograms. Director Medical: Aracely Transcribe Date/Time: Sep 08 2023 2:52P Dictated by : LEA ALMANZAR MD This examination was interpreted and the report reviewed and electronically signed by: LEA ALMANZAR MD on Sep 08 2023 4:24PM EST This document has been addended by: LEA ALMANZAR MD on Sep 11 2023 2:32PM EST PATHOLOGY: SURGICAL PATHOLOGY: [id number] Order: [id number] Collected 09/08/2023 2:04 PM Status: Final result [...] to ask questions. Additional workup needed: ZAYDA lease out man placement by BOTH (coil + unspecified) clips in RIGHT breast - fibroadenoma Interdisciplinary care and follow up: SURGICAL ONCOLOGY: Adele Sutton MD Tentative surgical plan: RIGHT breast ZAYDA-Manipulator Operator guided excision Consents were sent via [employer]. Postoperative analgesia was discussed. She WILL need prescriptions for tylenol, motrin, & gabapentin on the day of surgery. GLP-1 agonist or SGLT2 inhibitor use: No PRIMARY CARE PHYSICIAN: Ms. Enriquez is followed by Keli Strickland NP, SEMICONDUCTOR LAB TECHNICIAN as scheduled. Ms. Enriquez will return to our office postoperatively. She has our names and numbers to contact us if she has any questions or concerns. Future Appointments Date Time Provider Department Center 02/17/2024 1:00 PM [facility]n [facility] Monalisa Sutton MD, FACOG Breast Surgical Oncology & Benign Gynecology [address] [place] [id number] Appointment cc: Franchesca Man [address] [place], [place] [phone] Keli Strickland NP, SEMICONDUCTOR LAB TECHNICIAN I spent a total of 30 minutes on the date of the service which included preparing to see the patient, xcdh-yy-fuin patient care, completing clinical documentation, obtaining and/or reviewing separately obtained history, performing a medically appropriate examination, and counseling and educating the patient/family/caregiver. 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 The patient is present with her spouse, Jamari. The couple live together in [place], [place], denying any financial strains. She is employed. No active community resource. Her primary care provider is Dr. Mario Glasgow at [facility]. Her discharge plan is home.[facility]05-24-[facility] Telephone encounter Note* Telephone Encounter - Franchesca Man PA-C - 09/12/2023 10:09 AM EDT Spoke to patient and relayed results from biopsy (benign FA). We discussed that because the FA is 2cm in size and bothersome it is reasonable to see a breast surgeon to discuss the possibility of excision. She is agreeable and voices understanding. Consult placed. [facility]05-24-2024 Miscellaneous Notes* Telephone Encounter - Franchesca Man PA-C - 09/12/2023 10:09 AM EDT Spoke to patient and relayed results from biopsy (benign FA). We discussed that because the FA is 2cm in size and bothersome it is reasonable to see a breast surgeon to discuss the possibility of excision. She is agreeable and voices understanding. Consult placed. documented in this encounterAvita [facility] System05-23-2024 Telephone encounter Note * Telephone Encounter - Franchesca Man PA-C - 09/11/2023 3:24 PM EDT Called pt to discuss biopsy result and recommendations. No answer, will try back tomorrow morning. [facility]05-23-2024 Miscellaneous Notes* Telephone Encounter - Franchesca Man PA-C - 09/11/2023 3:24 PM EDT Called pt to discuss biopsy result and recommendations. No answer, will try back tomorrow morning. documented in this encounterAvita Health System05-23-2024 Telephone encounter Note * Telephone Encounter - Lou Miller RN - 09/11/2023 2:29 PM EDT Called patient to notify the breast pathology results are fibroadenoma per Dr. Almanzar. Patient willcall back to assist with surgical consult appt. Dr. Almanzar is aware. [facility]05-23-2024 Miscellaneous Notes* Telephone Encounter - Lou Miller RN - 09/11/2023 2:29 PM EDT Called patient to notify the breast pathology results are fibroadenoma per Dr. Almanzar. Patient willcall back to assist with surgical consult appt. Dr. Almanzar is aware. documented in this encounterAvita Health System05-20-2024 Instructions* Patient Education - Maritza Rodney RT(Jd) - 09/08/2023 2:02 PM EDT AMBULATORY PATIENT EDUCATION RADIOLOGY TOPIC: Pre- Procedure [...] SUPPLEMENTAL MATERIAL: Homegoing instructions REFERRAL (RECOMMENDATION): None [facility]05-20-2024 Miscellaneous Notes* Patient Education - Maritza Rodney RT(R) - 09/08/2023 2:02 PM EDT AMBULATORY PATIENT EDUCATION RADIOLOGY TOPIC: Pre- Procedure [...] instructions REFERRAL (RECOMMENDATION): None documented in this encounterAvita Health System04-22-2024 Telephone encounter Note * Telephone Encounter - Franchesca Man PA-C - 08/11/2023 10:03 AM EDT Spoke to patient and gave her results of over-read. She wants to proceed with biopsy. Order placed. [facility]04-22-2024 Miscellaneous Notes* Telephone Encounter - Franchesca Man PA-C - 08/11/2023 10:03 AM EDT Spoke to patient and gave her results of over-read. She wants to proceed with biopsy. Order placed. documented in this encounterAvita Health System04-18-2024 History of Present illness Narrative* Marilyn Jarrell RT(R) - 08/07/2023 11:15 AM EDT Radiology Service Progress Note PATIENT NAME: Sully Enriquez DATE OF SERVICE: August 07, 2023 TIME: 12:36 PM PATIENT IDENTITY VERIFICATION COMPLETED USING TWO (2) IDENTIFIERS: Name and Date of confirmedby patient verbally. FALL SCREENING: Has the patient had 2 falls in the last year or 1 fall with injury or currently using an Ambulatory Assistive Device (Walker, Cane, Wheelchair, Crutches, etc.)? No PATIENT GENDER DATA: Female. status: : No status: NO. PATIENT RELEVANT IMPLANT DATA REVIEWED: Yes PATIENT PRESENTS WITH AN IMPLANTABLE OR ATTACHED ACCESS LEAD: No RADIOLOGY DEPARTMENT: Mammography PERIPHERAL IV DATA: Not applicable SIGNED BY: HAWA Gasca) August 07, 2023 12:36 PM documented in this encounterAvita Health System04-18-2024 NoteHNO ID: [id number] Author: MARILYN JARRELL RT(R) Service: Radiology Author [...] PATIENT PRESENTS WITH AN IMPLANTABLE OR ATTACHED ACCESS LEAD: No RADIOLOGY DEPARTMENT: Mammography PERIPHERAL IV DATA: Not applicable SIGNED BY: RT Campos(Jd) August 07, 2023 12:36 [facility]04-18-2024 History of Present illness Narrative* Franchesca Man PA-C - 08/07/2023 10:30 AM EDT MEDICAL BREAST PATIENT NAME: Sully Enriquez 08/07/2023 REFERRAL: She is self referred for an opinion regarding right breast biopsy. HISTORY of PRESENT ILLNESS: Sully Enriquez is a 33 year old year old premenopausal woman who presents to the [facility] [place] today for second opinion of right breast biopsy. The patient deniesany breast skin changes. She reports 1 year history of bilateral diffuse breast pain R>L. She also reports bilateral milky nipple discharge for the past year. She notices this as a white crusting on her bra most days. Shehasn't breast fed in 13 years. She was seen for her breast related issues at [facility]) with care as follows: 06/25/23: Diagnostic bilateral DBT and US at [facility]): - RIGHT breast 8oclock 4-5cmfn [...] mammograms. [facility]. A TSH was ordered today. She was referred to endocrinology. She will come back if she notices a change in the discharge or any new lumps or breast concerns. Regarding her breast pain, she is advised to completely decaffeinate her diet and have a proper brafitting. If the pain becomes severe or persistent, she may try Evening [place] Oil 1000mg twice daily for 3-4 months. She was given a breast pain informational handout. Genetics referral made: No: Reason: n/a Chemoprevention discussion: N/A The patient is advised to exercise regularly, achieve/maintain ideal body weight, and to limit alcohol consumption to less than 7 drinks weekly for breast cancer risk reduction and overall health. Her imaging will be formally over-read by [facility] breast radiology team. Based on the [...] which included preparing to see the patient, fthx-wp-fkdr patient care, completing clinical documentation, obtaining and/or reviewing separately obtained history, performing a medically appropriate examination, counseling and educating the patient/family/caregiver, ordering medications, tests, or procedures, communicating with otherHCPs (not separately reported), independently interpreting results (not separately reported), communicating results to the patient/family/caregiver, and care coordination (not separately reported). Franchesca Man PA-C Medical Breast Specialist 08/07/2023 CC: No referring provider defined for this encounter. Phone: N/A Fax: Keli Strickland NP [address] [place] [address] documented in this encounterAvita Health System04-18-2024 NoteHNO ID: [id number] Author: GREENHOUSE, MOLLIE, PA-C Service: ? Author Type: Physician Sales Correspondent Type: Progress Notes Filed: 08/07/2023 14:26 Note Text: MEDICAL BREAST PATIENT NAME: Sully Enriquez 08/07/2023 REFERRAL: She is self referred for an opinion regarding right breast biopsy. HISTORY of PRESENT ILLNESS: Sully Enriquez is a 33 year old year old premenopausal woman who presents to the [facility] [place] today for second opinion of right breast [...] for her breast related issues at [facility] with care as follows: 06/25/23: Diagnostic bilateral DBT and US at [facility]): - RIGHT breast 8oclock 4-5cmfn [...] Regional Lymph Nodes: The (more content not included)...[facility]04-10-2024 Miscellaneous Notes* Telephone Encounter - Kenia Peters MA - 07/30/2023 10:52 AM EDT Spoke with patient she is coming in because she states that she had a biopsy 06/2023 and was told itwas fibroadenoma. Patient states that she feels like her provider is not giving her all the information and would like a second opinion. She was seen at [facility] in [place] I will reach out to them to retrieve any information and imaging needed for her appointment 08/07/23 with Franchesca FINNEGAN in the [facility] contact number is [phone]. Kenia Peters MA documented in this encounterAvita Health System04-05-2024 Miscellaneous Notes* Telephone Encounter - Kenia Peters MA - 07/25/2023 12:58 PM EDT Called patient to discuss her upcoming appointment with Franchesca Man in the breast center. I left a message asking patient to call me back @[phone]. Kenia Peters MA documented in this encounterAvita Health System01-17-2024 Evaluation note* Encounter Date Diagnosis Assessment Notes Treatment Notes Treatment Clinical Notes Apr, Anxiety (ICD-10 - F41.9) [facility] Other 10-26-2023 Evaluation note* Encounter Date Diagnosis Assessment Notes Treatment Notes Treatment Clinical Notes Jan, Anxiety (ICD-10 - F41.9) [facility] Other 10-11-2023 Evaluation note* Encounter Date Diagnosis Assessment Notes Treatment Notes Treatment Clinical Notes Jan, BMI 37.0-37.9, adult (ICD-10 - Z68.37) [employer] [facility] - eRX sent. We did discuss that she needs to do a better job with the monitoring of her diet. If her weight loss does not improve, we must consider withholding medication. She voices agreement and understanding. [facility] Other 10-03-2023 Evaluation note* Encounter Date Diagnosis Assessment Notes Treatment Notes Treatment Clinical Notes Jan, Anxiety (ICD-10 - F41.9) [facility] Other 09-01-2023 Evaluation note* Encounter Date Diagnosis Assessment Notes Treatment Notes Treatment Clinical Notes Dec, Anxiety (ICD-10 - F41.9) [facility] Other 08-24-2023 Evaluation note* Encounter Date Diagnosis Assessment Notes Treatment Notes Treatment Clinical Notes Nov, BMI 37.0-37.9, adult (ICD-10 - Z68.37) [employer] [facility] -E Rx sent. No other change today. We will recheck in 1 month. [facility] Other 08-05-2023 Hospital Discharge instructions Patient Education [...] Follow these instructions at home: Medicines Take nhfz-mwz-lpcjsvu and prescription medicines only as told by your health care provider. Ask your health care provider if the medicine prescribed to you: ?Requires you to avoid driving or using machinery. ?Can cause constipation. You may need to take these actions to prevent or treat constipation: ?Drink enough fluid to keep your urine pale yellow. ?Take ssak-ega-jmraxzr or prescription medicines. ?Eat foods that are [...] is important. Where to find more information [employer]: www.acog.org Office [...] provider. Document Revised: 11/08/2020 Document Reviewed: 11/08/2020 [employer] Patient Education 2022 [employer]. 11/23/2022 01:20:40 Laparoscopic Lysis of Abdominal Adhesions [...] including vitamins, herbs, eye drops, creams, and optg-zcp-hnruspx medicines. Any problems you or family members [...] provider tells you to take them. Taking wpir-xdb-gxxvxcb medicines, vitamins, herbs, and supplements. General instructions [...] provider. Document Revised: 12/15/2020 Document Reviewed: 12/15/2020 [employer] Patient Education 2022 [employer]. 11/23/2022 01:20:40 Adhesions, Fimj-sc-Xlsl Adhesions Adhesions are strings of tissue that [...] needed. Follow these instructions at home: Take tmqx-pqw-eroetid and prescription medicines only as told by [...] Treatment may include medicines and surgery. Take rygu-mih-nytnrqq and prescription medicines only as told by your doctor. This information is not intended to replace advice given to you by your health care provider. Make sure you discuss any questions you have with your health care provider. Document Revised: 12/15/2020 Document Reviewed: 12/15/2020 [employer] Patient Education 2022 [employer]. 11/23/2022 01:20:40 Abdominal Pain, Adult, Hlmw-ks-Owrj Abdominal Pain, Adult Many things can cause belly (abdominal) pain. Most times, belly pain is not dangerous. Many cases of belly pain can be watched and treated at home. Sometimes, though, belly pain is serious. Your doctor will try to find the cause of your belly pain. Follow these instructions at home: Medicines Take wbmk-izj-zxlaoys and prescription medicines only as told by [...] your belly pain for any changes. Take ggqy-cyq-ryaqmqv and prescription medicines only as told by [...] provider. Document Revised: 08/16/2019 Document Reviewed: 08/16/2019 [employer] Patient Education 2022 [employer]. Follow Up Care 11/22/2022 19:01:50 With:MARIO GLASGOW Address: [facility] [place] [id number] Business (1) When:11/26/2022 [facility]07-27-2023 Evaluation note* Encounter Date Diagnosis Assessment Notes Treatment Notes Treatment Clinical Notes Oct, BMI 37.0-37.9, adult (ICD-10 - Z68.37) [employer] - eRX sent. Call with any concerns. [facility] Other 06-27-2023 Evaluation note* Encounter Date Diagnosis [...] We will see patient back for follow-up. [facility] Other 05-30-2023 Evaluation note* Encounter Date Diagnosis Assessment Notes Treatment Notes Treatment Clinical Notes August, BMI 39.0-39.9,adult (ICD-10 - Z68.39) [facility] - eRX sent. Call with any concern. [employer] Other 05-30-2023 Evaluation note* Encounter Date Diagnosis Assessment Notes Treatment Notes Treatment Clinical Notes August, BMI 39.0-39.9,adult (ICD-10 - Z68.39) [facility] Other 12-28-2022 Evaluation note* Encounter Date Diagnosis [...] year, with out any concerns with anesthesia. [facility] Other 09-06-2022 Evaluation note* Encounter Date Diagnosis Assessment Notes Treatment Notes Treatment Clinical Notes Dec, BMI 36.0-36.9,adult (ICD-10 - Z68.36) [facility] Other 08-24-2022 Evaluation note* Encounter Date Diagnosis [...] third and final prescription of the Adipex. [facility] Other 08-03-2022 Evaluation note* Encounter Date Diagnosis Assessment Notes Treatment Notes Treatment Clinical Notes Nov, BMI 36.0-36.9,adult (ICD-10 - Z68.36) [facility] Other 07-05-2022 Evaluation note* Encounter Date Diagnosis Assessment Notes Treatment Notes Treatment Clinical Notes Oct, Conjunctivitis (ICD9-CM - 372.30) [facility] Other 06-24-2022 Evaluation note* Encounter Date Diagnosis Assessment Notes Treatment Notes Treatment Clinical Notes Sep, BMI 37.0-37.9, adult (ICD-10 - Z68.37) [facility] [place]-E [facility] sent. Lengthy discussion regarding side effects as well as possible outcomes of the medication. We will see her back in 1 month. Patient to call with any concerns. [facility] Other 06-24-2022 Evaluation note* Encounter Date Diagnosis Assessment Notes Treatment Notes Treatment Clinical Notes Sep, BMI 37.0-37.9, adult (ICD-10 - Z68.37) [facility] Other 06-13-2022 Evaluation note* Encounter Date Diagnosis Assessment Notes Treatment Notes Treatment Clinical Notes Sep, BMI 38.0-38.9,adult (ICD-10 - Z68.38) [facility] Other 06-09-2022 Evaluation note* Encounter Date Diagnosis [...] psychiatric diagnoses/as well as her seizure concerns. [facility] Other 04-27-2022 Hospital Discharge instructions Patient Education [...] fried and sweet foods. General instructions Take ncbw-ung-akcnaxb and prescription medicines only as told by [...] 02/01/2010 Document Revised: 07/29/2019 Document Reviewed: 04/23/2018 [employer] Patient Education 2020 [employer]. [facility] 02-09-2022 Evaluation note* Encounter Date Diagnosis Assessment [...] 2mg at that time of refill need. [facility] Other 01-18-2022 Evaluation note* Encounter Date Diagnosis Assessment Notes Treatment Notes Treatment Clinical Notes Apr, Dysuria (ICD-10 - R30.0) [facility] Other 01-12-2022 Evaluation note* Encounter Date Diagnosis [...] next week. She voices agreement and understanding. [facility] Other 11-17-2021 NoteHNO ID: [id number] Author: Rosalie Haile MD Service: ? Author Type: Physician Type: Progress Notes Filed: 03/08/2021 8:38 PM Note Text: [facility] - General Progress Note SULLY ENRIQUEZ : 1990 AGE: 31 SEX: F CSN: [id number] [facility] [place] [facility] LOCATION: [facility] ATTENDING PHYSICIAN: Rosalie Haile M.D. [...] follow up. Rosalie Haile M.D. Internal Medicine ESPINOZA:[id number] NoteHNO ID: [id number] Author: Saravanan Yancey MD Service: Neurology General [...] Will await MRI results. 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 Last discharge within 30 days: No Advance Directive: Current Advance Directive: None Sales Operations Manager Attempted to Assist with AD Completion: [...] None Has the Patient Been in a Group Home Facility in the Past 30 days?: No SOCIAL: Living Arrangements: Home Lives With: Partner;Daughter;Son Financial Resources: Employed Primary Contact: Extended Emergency Contact Information Primary Emergency Contact: jamari strong Address: [address] [place] [address] Mobile Relation: Significant other Secondary Emergency Contact: [...] Completely I feel financially burdened by my lyo-rf-iyqqyu expenses for my prescription medication:: 0 - Disagree Completely Risk Score: 0 Patient is categorized as: Low risk < 2 Are you interested in bedside delivery of your medications? No Is Patient Psychosocially Complex?: No ASSESSMENT AND PLAN: Medical Needs: Medical Needs: None Psychosocial Needs: Psychosocial Needs: Mental Health Diagnosis Mental Health Information: Coversion d/o, anxiety FREEDOM OF CHOICE EXPLAINED: [place] [facility] Choice Given: No Reason Not Given: No placements necessary POTENTIAL TRANSITION PLANS Home Pt presents to ED s/p seizer, headache, CP, Hx diabetes (pt adamant she does not have DM), anxiety, epilepsy, conversion disorder. Independent of ADLS and iADLS, lives in a lower level duple with fito Kauffman, 13 y/o dtr and 10 y/o son. Pt reports she is employed and drives. Does not utilize any DME, chcf or community resources. No skilled needs identified at this time. DC transportation will be provided by Jamari [phone]. SIGNATURE: JULITO Lino PATIENT NAME: Sully Enriquez DATE: March 06, 2021 TIME: 4:00 PM PAGER/CONTACT #: [phone] HospitalEvaluation + Plan note No data available for this section [facility] evaluation noteNo InformationNort [employer] Other Evaluation noteNo assessment information available [facility] Work Phone: Evaluation note* Diagnosis Disorder of breast- Primary Unspecified breast disorder [facility]* Diagnosis Mastodynia- Primary Fibrocystic breast changes of both breasts Family history of breast cancer Family history of malignant neoplasm of breast Dense breasts Inconclusive mammogram Nipple discharge Other sign and symptom in breast [facility]* Diagnosis Disorder of breast Unspecified breast disorder Fibrocystic breast changes of both breasts Family history of breast cancer Family history of malignant neoplasm of breast Mastodynia [facility] Diagnosis Onset Date Resolution Status Fatigue noneactive BMI 39.0-39.9,adult noneacti ve [facility] Work Phone: Evaluation note* Diagnosis Fibrocystic breast changes of both breasts Family history of breast cancer Family history of malignant neoplasm of breast Mastodynia Dense breasts Inconclusive mammogram Nipple discharge Other sign and symptom in breast Mass of right breast, unspecified quadrant [facility] Diagnosis Breast fibroadenoma, right- Primary Fibrocystic breast changes of both breasts Mastodynia Dense breasts Inconclusive mammogram [facility]* Diagnosis Onset Date Resolution Status Fatigue noneactive BMI 39.0-39.9,adult noneacti ve BMI 39.0-39.9,adult noneacti ve [facility] Work Phone: Evaluation note* Diagnosis Onset Date Resolution Status Fatigue noneactive BMI 39.0-39.9,adult noneacti ve BMI 39.0-39.9,adult noneacti ve BMI 38.0-38.9,adult noneacti ve [facility] Work Phone: Evaluation note* Diagnosis Onset Date Resolution Status BMI 39.0-39.9,adult noneacti ve BMI 38.0-38.9,adult noneacti ve Lump of right breast acute UTI (urinary tract infection) acute BMI 38.0-38.9,adult noneacti ve [facility] Work Phone: Evaluation note* Diagnosis Breast fibroadenoma, right- Primary Preop testing Preoperative examination, unspecified Breast fibroadenoma, right [facility]* Diagnosis Breast fibroadenoma, right- Primary Breast fibroadenoma, right [facility]* Diagnosis Pre-op evaluation- Primary Preoperative examination, [...] PRN Saw neurology [facility]* Diagnosis Pre-op evaluation- Primary Preoperative examination, unspecified Seizure (HCC) Other convulsions Difficult intravenous access Other specified conditions influencing health status Obesity (BMI 30-39.9) Obesity, unspecified POTS (postural orthostatic tachycardia syndrome) Tachycardia, unspecified Rash Rash and other nonspecific skin eruption Breast fibroadenoma, right [facility]* Diagnosis Pre-op evaluation- Primary Preoperative examination, unspecified Seizure (HCC) Other convulsions Difficult intravenous access Other specified conditions influencing health status Obesity (BMI 30-39.9) Obesity, unspecified POTS (postural orthostatic tachycardia syndrome) Tachycardia, unspecified Rash Rash and other nonspecific skin eruption Breast fibroadenoma, right- Primary Fibrocystic breast changes of both breasts Post-operative state Other postprocedural status documented in this encounter [facility] note* Diagnosis Pre-op evaluation- Primary [...] symptom in breast documented in this encounter [facility] note* Diagnosis Pre-op evaluation- Primary Preoperative examination, unspecified Seizure (HCC) Other convulsions Difficult intravenous access Other specified conditions influencing health status Obesity (BMI 30-39.9) Obesity, unspecified POTS (postural orthostatic tachycardia syndrome) Tachycardia, unspecified Rash Rash and other nonspecific skin eruption Mass of right breast, unspecified quadrant Nipple discharge Other sign and symptom in breast documented in this encounter [facility] note* Diagnosis Pre-op evaluation- Primary Preoperative examination, unspecified Seizure (HCC) Other convulsions Difficult intravenous access Other specified conditions influencing health status Obesity (BMI 30-39.9) Obesity, unspecified POTS (postural orthostatic tachycardia syndrome) Tachycardia, unspecified Rash Rash and other nonspecific skin eruption Discharge from right nipple- Primary Obesity, Class II, BMI 35-39.9 Obesity, unspecified documented in this encounter [facility] note* Diagnosis Onset Date Resolution Status Lump of right breast acute UTI (urinary tract infection) acute BMI 38.0-38.9,adult noneacti ve Sinusitis noneactive [facility] Work Phone: Evaluation note* Diagnosis Pre-op [...] symptom in breast [facility]* Diagnosis Pre-op evaluation- Primary Preoperative examination, [...] in breast documented in this encounter [facility] general Narrative - Reported* Type Description Date [...] dif ferent times Hospitalization History Seizures 02/2021 [facility] general Narrative - Reported* Type Description Date [...] dif ferent times Hospitalization History Seizures 02/2021 [facility] Other History general Narrative - ReportedN[employer] Other [facility] general Narrative - Reported* Type Description Date [...] dif ferent times Hospitalization History Seizures 02/2021 [facility] Other Hospital Discharge instructions Additional Instructions DISCHARGE [...] FOLLOW UP -[Please call the office at ([phone]) to make follow appointment before leaving the hospital]. -[2 Weeks] [ ][facility] Work Phone: Hospital Discharge instructions No data available for this section [facility] progress note No data available for this section [facility] Diagnostic Procedure Only (Routine) - Authorized Specialty Diagnoses / Procedures Referred By Nikolas guerrero Referred To Contact [facility] IMAGING Diagnoses Disorder of breast Procedures SAJI DIAGNOSTIC BILATERAL DIAGNOSTIC MAMMOGRAPHY COMPUTER-AIDED DETCJ BI Franchesca Man PA-C [address] [employer] [place] [id number] [facility] [address] [facility] [place] [address] Referral ID Status Reason Start Date Expiration Date Visits Requested Visits Authorized [id number] Authorized Auto-Generat ed Referral 08/06/2023 09/04/2024 1 1 [facility] for referral (narrative)* Diagnostic Procedure Only (Routine) - Closed Specialty Diagnoses / Procedures Referred By Nikolas guerrero Referred To Contact [facility] IMAGING Diagnoses Fibrocystic breast changes of both breasts Family history of breast cancer Mastodynia Procedures US BREAST LTD RIGHT US BREAST UNI REAL TIME WITH IMAGE LIMITED Franchesca Man PA-C [address] [employer] [place] [address] [address] Br Imaging [address] [employer] [place] [address] Referral ID Status Reason Start Date Expiration Date V isits Requested Visits Authorized [id number] Closed Auto-Generate d Referral 08/07/2023 04/20/2024 1 1 [facility] for referral (narrative)* Diagnostic Procedure Only (Routine) - Closed Specialty Diagnoses / Procedures Referred By Contac t Referred To Contact BR IMAGING Diagnoses Fibrocystic breast changes of both breasts Family history of breast cancer Mastodynia Dense breasts Nipple discharge Mass of right breast, unspecified quadrant Procedures US BIOPSY BREAST RIGHT BX BREAST W/DEVICE 1ST LESION ULTRASOUND GUID Franchesca Man PA-C [address] [employer] [facility] [address] [place] [address] Br Imaging [address] [place] [address] Referral ID Status Reason Start Date Expiration Date V isits Requested Visits Authorized [id number] Closed Auto-Generate d Referral 08/11/2023 09/09/2024 1 1 [facility] for referral (narrative)* Diagnostic Procedure Only (Routine) - New Request Specialty Diagnoses / Procedures Referred By Nikolas guerrero Referred To Contact BR IMAGING Diagnoses Breast fibroadenoma, right Procedures SAJI NDL LOC W SAJI GD RIGHT PERQ DEVICE PLACEMENT BREAST LOC 1ST LES W/GDNCE Adele Sutton MD [address] [place] [address] Br Imaging [address] [place] [address] Referral ID Status Reason Start Date Expiration Date Visits Requested Visits Authorized [id number] New Request Auto-Generat ed Referral 12/26/2023 01/24/2025 1 1 [facility] for referral (narrative)* Diagnostic Procedure Only (Routine) - Closed Specialty Diagnoses / Procedures Referred By Contac t Referred To Contact BR IMAGING Diagnoses Mass of right breast, unspecified quadrant Nipple discharge Procedures US BREAST LTD RIGHT US BREAST UNI REAL TIME WITH IMAGE LIMITED Anastasia Mon PA-C [address] [place] [address] Br Imaging [address] [place] [address] Referral ID Status Reason Start Date Expiration Date V isits Requested Visits Authorized [id number] Closed Auto-Generate d Referral 01/29/2024 02/27/2025 1 1 [facility] for referral (narrative)* Diagnostic Procedure Only (Routine) - Closed Specialty Diagnoses / Procedures Referred By Contac t Referred To Contact BR IMAGING Diagnoses Mass of right breast, unspecified quadrant Nipple discharge Procedures US BREAST LTD RIGHT US BREAST UNI REAL TIME WITH IMAGE LIMITED Anastasia Mon PA-C [address] [place] [address] Br Imaging [address] [place] [phone] Referral ID Status Reason Start Date Expiration Date V isits Requested Visits Authorized [id number] Closed Auto-Generate d Referral 03/12/2024 04/20/2024 1 1 [facility] for visit Narrative1 month Follow up, ER visit recently referrals to GI and urologistPineland Gynesonics Other [facility] Narrative* Diagnostic Procedure Only (Routine) - Closed Specialty Diagnoses / Procedures Referred By Contac t Referred To Contact BR IMAGING Diagnoses Breast fibroadenoma, right Procedures SAJI NDL LOC W SAJI GD RIGHT PERQ DEVICE PLACEMENT BREAST LOC 1ST LES W/GDAdele Brian MD [address] [place] [address] Br Imaging [address] [place] [address] Referral ID Status Reason Start Date Expiration Date V isits Requested Visits Authorized [id number] Closed Auto-Generate d Referral 12/26/2023 01/24/2025 1 1 [facility]* Diagnostic Procedure Only (Routine) - Closed Specialty Diagnoses / Procedures Referred By Nikolas t Referred To Contact BR IMAGING Diagnoses Mass of right breast, unspecified quadrant Nipple discharge Procedures US BREAST LTD RIGHT US BREAST UNI REAL TIME WITH IMAGE LIMITED Anastasia Mon PA-C [address] [place] [address] Br Imaging [address] [place] [address] Referral ID Status Reason Start Date Expiration Date V isits Requested Visits Authorized [id number] Closed Auto-Generate d Referral 01/29/2024 02/27/2025 1 1 [facility] Summary Purpose Family History Relationship Condition Age [...] UTI (urinary tract infection) BMI 38.0-38.9,adult Sinusitis Chief Complaint Admit Date adipex February 23, 2024 2 :29pm 2 month April 26, 2024 2: 25pm Reason for Visit Admit Date Sinusitis February 23, 2024 2 :29pm BMI 38.0-38.9,adult February 23, 2024 2 :29pm 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, 2024 2: 25pm Seizure-like activity April 26, 2024 2:25pm Spasm of muscle of lower back April 2:25pm Weakness of right leg April 26, 2024 2:25pm Numbness and tingling of right arm Janua 2024 2:25pm Reason for Referral Specialty Diagnoses / Procedures Referred By Contac t Referred To Contact MR IMAGING Diagnoses Nipple discharge Procedures MRI BREAST WO/W IVCON BILATERAL MRI BREAST WITHOUT&WITH CONTRAST W/CAD BILATERAL Anastasia Mon PA-C [address] [place] [address] Mr Imaging [facility]95 Referral ID Status Reason Start Date Expiration Date Visits Requested Visits Authorized [id number] New Request Auto-Generat ed Referral 4 04/11/2025 1 1 Specialty Diagnoses / Procedures Referred By Contac t Referred To Contact BR IMAGING Diagnoses Mass of right breast, unspecified quadrant Nipple discharge Procedures US BREAST LTD RIGHT US BREAST UNI REAL TIME WITH IMAGE LIMITED Anastasia Mon PA-C [address] [place] [address] Br Imaging [address] [place] [phone] Referral ID Status Reason Start Date Expiration Date V isits Requested Visits Authorized [id number] Closed Auto-Generate d Referral 03/12/2024 04/20/2024 1 1 Specialty Diagnoses / Procedures [facility] Referred To Contact Diagnoses Family history of breast cancer Procedures CONSULT TO MEDICAL GENETICS - CANCER MEDICAL GENETICS COUNSELING EACH 30 MINUTES Anastasia Mon PA-C [address] [place] [address] [address] Referral ID Status Reason Start Date Expiration Date Visits Requested Visits Authorized [id number] Authorized PCP Requested Referral Auto-Generate d Referral 4 01/29/2025 1 1 Specialty Diagnoses / Procedures [facility] Referred To Contact [facility] Diagnoses Mass of right breast, unspecified quadrant Nipple discharge Procedures US BREAST LTD RIGHT US BREAST UNI REAL TIME WITH IMAGE LIMITED Anastasia Mon PA-C [address] [place] [address] Br Imaging [address] [place] [phone] Referral ID Status Reason Start Date Expiration Date V isits Requested Visits Authorized [id number] Closed Auto-Generate d Referral 01/29/2024 02/27/2025 1 1 Specialty Diagnoses / Procedures Referred By Contac t Referred To Contact General Surgery Diagnoses Breast fibroadenoma, right Fibrocystic breast changes of both breasts Mastodynia Dense breasts Procedures CONSULT TO GENERAL SURGERY OFFICE/OUTPATIENT [facility] 60 MINUTES Franchesca Man PA-C [address] [employer] [place] [address] Referral ID Status Reason Start Date Expiration Date Visits Requested Visits Authorized [id number] Authorized PCP Requested Referral 09/12/2023 09/11/2024 1 1 Specialty Diagnoses / Procedures Referred By Contac t Referred To Contact Endocrinology Diagnoses Nipple discharge Procedures CONSULT TO ENDOCRINOLOGY OFFICE/OUTPATIENT [facility] 60 MINUTES Franchesca Man PA-C [address] [place] [address] Referral ID Status Reason Start Date Expiration Date Visits Requested Visits Authorized [id number] Authorized PCP Requested Referral 08/07/2023 08/06/2024 1 1 Specialty Diagnoses / Procedures Referred By Contac t Referred To Contact BR IMAGING Diagnoses Fibrocystic breast changes of both breasts Family history of breast cancer Mastodynia Procedures US BREAST LTD RIGHT US BREAST UNI REAL TIME WITH IMAGE LIMITED Franchesca Man PA-C [address] [place] [address] Br Imaging [address] [facility] [place] [address] Referral ID Status Reason Start Date Expiration Date V isits Requested Visits Authorized [id number] Closed Auto-Generate d Referral 08/07/2023 04/20/2024 1 1 Reason Appt time Consult and treat abdominal pain - [facility] x 2 Diagnosis 1 Abdominal pain (R10. 9) Referral Organization [facility] Sekou Patterson Referring Provider First Name Mario Referring Provider Last Name Pee Referring Provider Specialty Family Prac cody Referred Organization Unknown Facility Referred Provider Carlos Haq Referred Provider Specialty Surgery Referral Priority Routine General Notes Renetta Damico 2022 08:55:03 AM > Carlos Haq DO, phone [phone]. [facility] recommended Additional Source Comments INFORMATION SOURCE (unrecogn ized section and content) DATE CREATED AUTHOR 03/11/2021 [facility] DATE CREATED AUTHOR AUTHOR'S ORGANIZ ATION 08/15/2022 [facility] DATE CREATED AUTHOR AUTHOR'S ORGANIZ ATION 02/15/2023 [facility] DATE CREATED AUTHOR AUTHOR'S ORGANIZ ATION 10/09/2023 [facility] EPIC DATE CREATED AUTHOR AUTHOR'S ORGANIZ ATION 12/27/2023 [facility] DATE CREATED AUTHOR AUTHOR'S ORGANIZ ATION 2024 [facility] DATE CREATED AUTHOR AUTHOR'S ORGANIZ ATION 03/18/2024 [facility] REASON FOR VISIT (unrecogniz ed section and content) Reason Comments New Patient Pain in both breast, enlarged lymph node in Rt armpit. Establish care Reason Comments Radiology Mammogram Specialty Diagnoses / Procedures Referred By Nikolas t Referred To Contact BR IMAGING Diagnoses Disorder of breast Procedures SAJI DIAGNOSTIC BILATERAL DIAGNOSTIC MAMMOGRAPHY COMPUTER-AIDED DETCJ BI Franchesca Man PA-C [address] [facility] [address] [address] Br Imaging [address] [facility] [place] [address] Referral ID Status Reason Start Date Expiration Date V isits Requested Visits Authorized [id number] Closed Auto-Generate d Referral 08/06/2023 09/04/2024 1 [...] 1ST LESION ULTRASOUND GUID Franchesca Man PA-C [address] [facility] [address] [address] [facility] [address] [facility] [place] [address] Referral ID Status Reason Start Date Expiration Date V isits Requested Visits Authorized [id number] Closed Auto-Generate d Referral 08/11/2023 09/09/2024 1 1 Reason Comments Results Reason Comments New Patient Specialty Diagnoses / Procedures Referred By Nikolas t Referred To Contact General Surgery Diagnoses Breast fibroadenoma, right Fibrocystic breast changes of both breasts Mastodynia Dense breasts Procedures CONSULT TO GENERAL SURGERY OFFICE/OUTPATIENT NEW HIGH MDM 60 MINUTES Franchesca Man PA-C [address] [facility] [address] [address] [place] [address] Referral ID Status Reason Start Date Expiration Date V isits Requested Visits Authorized [id number] Closed PCP Requested Referral 09/12/2023 09/11/2024 1 [...] MAMMOGRAPHY COMPUTER-AIDED DETCJ BI Anastasia Mon PA-C [address] [employer] [place] [address] Br Imaging [address] [place] [address] Referral ID Status Reason Start Date Expiration Date V isits Requested Visits Authorized [id number] Closed Auto-Generate d Referral 01/29/2024 02/27/2025 1 1 Care Teams (unrecognized sec tion and content) Team Status: Active Member Role Status Dates Mario Glasgow DO Primary Care Provider Active Team Status: Inactive Member Role Status Dates Mario Glasgow DO Primary Care Provid er, Attending Provider Active Start: February 23, 2024 End: February 23, 2024 Team Status: Inactive Member Role Status Dates Mario Glasgow DO Primary Care Provid er, Attending Provider Active Start: April 26, 2024 End: April 26, 2024 Team Status: Active Member Role Status Dates Mario Glasgow DO Primary Care Provider Active Team Status: Active Member Role Status Dates Mario Glasgow DO Primary Care Provider Active Start: December [...] Team Status: Active Member Role Status Dates Mraio Glasgow , DO Primary Care Provid er, [...] Member Role Status Dates Mario Glasgow , Attending Provider Active Team Status: Inactive Member Role Status Dates Mario Glasgow , Primary Care Provider Active Jose Cade , DO Emergency Provider Active Team Status: Inactive Member Role Status Dates Mario Glasgow , DO Primary Care Provider Active Rell Garcia , DO Attending Provider Active Team Status: Inactive Member Role Status Dates Rell Garcia , DO Attending Provider Active Team Status: Inactive Member Role Status Dates Mario Glasgow , DO Attending Provider Active S tart: April 01, 2023 End: April 01, 2023 Team Status: Inactive Member Role Status Dates Mario Glasgow , Primary Care Provider Active Start: June 03, [...] 07, 2023 End: July 07, 2023 Lucero Pimentel DO Attending Provider Active Start: July 07, 2023 End: July 07, 2023 Team Status: Active Member Role Status Dates Mario Glasgow DO Primary Care Provider Active Start: July 07, 2023 Shukri Wynne LPN Attending Provider Active St art: July 07, 2023 Fundraising Specialist Relationship Specialty Start Date End Date Keli Strickland NP [address] [place] [address] [place] [phone] PCP - General Family Medicine 10/19/16 Erin Chavez MD [address] [place] [address] Urology 01/01/23 Fundraising Specialist Relationship Specialty Start Date End Date Keli Strickland NP [address] [address] [place] [phone] PCP - General Family Medicine 10/19/16 Erin Chavez MD [address] [place] [address] Urology 01/01/23 Fundraising Specialist Relationship Specialty Start Date End Date Keli Strickland NP [address] [place] [address] [place] [phone] PCP - General Family Medicine 10/19/16 Erin Chavez MD [address] [place] [address] Urology 01/01/23 Fundraising Specialist Relationship Specialty Start Date End Date Keli Strickland NP [address] [place] [phone] PCP - General Family Medicine 10/19/16 Erin Chavez MD [address] [place] [address] Urology 01/01/23 Fundraising Specialist Relationship Specialty Start Date End Date Keli Strickland NP [address] [place] [address] [place] [phone] PCP - General Family Medicine 10/19/16 Erin Chavez MD [address] [place] [address] Urology 01/01/23 Fundraising Specialist Relationship Specialty Start Date End Date Keli Strickland NP [address] [place] [address] [place] [phone] PCP - General Family Medicine 10/19/16 Erin Chavez MD [address] [place] [address] Urology 01/01/23 Fundraising Specialist Relationship Specialty Start Date End Date Keli Strickland NP [address] [place] [address] [place] [id number] PCP - General Family Medicine 10/19/16 Erin Chavez MD [address] [place] [address] Urology 01/01/23 Fundraising Specialist Relationship Specialty Start Date End Date Keli Strickland NP [address] [address] [place] [id number] PCP - General Family Medicine 10/19/16 Erin Chavez MD [address] [place] [address] Urology 01/01/23 Fundraising Specialist Relationship Specialty Start Date End Date Keli Strickland NP [address] [address] [place] [id number] PCP - General Family Medicine 10/19/16 Erin Chavez MD [address] [place] [address] Urology 01/01/23 Fundraising Specialist Relationship Specialty Start Date End Date Keli Strickland NP [address] [facility] [place] [phone] PCP - General Family Medicine 10/19/16 Erin Chavez MD [address] [place] [address] Urology 01/01/23 Fundraising Specialist Relationship Specialty Start Date End Date Keli Strickland NP [address] [facility] [place] [phone] PCP - General Family Medicine 10/19/16 Erin Chavez MD [address] [place] [address] Urology 01/01/23 Fundraising Specialist Relationship Specialty Start Date End Date Mario Glasgow DO [address] [place] [address] PCP - General Family Medicine 12/30/23 Erin Chavez MD [address] [place] [address] Urology 01/01/23 Fundraising Specialist Relationship Specialty Start Date End Date Mario Glasgow DO [address] [place] [address] PCP - General Family Medicine 12/30/23 Erin Chavez MD [address] [place] [address] Urology 01/01/23 Fundraising Specialist Relationship Specialty Start Date End Date PeeMario greeneDO [address] [address] PCP - General Family Medicine 12/30/23 Erin Chavez MD [address] [place] [address] Urology 01/01/23 Fundraising Specialist Relationship Specialty Start Date End Date PeeMario greeneDO [address] [address] PCP - General Family Medicine 12/30/23 Erin Chavez MD [address] [place] [address] Urology 01/01/23 Fundraising Specialist Relationship Specialty Start Date End Date PeeMario greeneDO [address] [address] PCP - General Family Medicine 12/30/23 Erin Chavez MD [address] [place] [address] Urology 01/01/23 Fundraising Specialist Relationship Specialty Start Date End Date Mario Glasgow DO [address] [address] PCP - General Family Medicine 12/30/23 Erin Chavez MD [address] [place] [address] Urology 01/01/23 Fundraising Specialist Relationship Specialty Start Date End Date PeeMario greeneDO [address] [address] PCP - General Family Medicine 12/30/23 Erin Chavez MD [address] [place] [place] [address] Urology 01/01/23 Fundraising Specialist Relationship Specialty Start Date End Date PeeMario greeneDO [address] [address] PCP - General Family Medicine 12/30/23 Erin Chavez MD [address] [place] [address] Urology 01/01/23 Fundraising Specialist Relationship Specialty Start Date End Date PeeMario greene DO Caroline [address] [address] PCP - General Family Medicine 12/30/23 Erin Chavez MD [address] [place] [address] Urology 01/01/23 Fundraising Specialist Relationship Specialty Start Date End Date Pee Mario Velazquez DO [address] [address] PCP - General Family Medicine 12/30/23 Erin Chavez MD [address] [place] [address] Urology 01/01/23 Fundraising Specialist Relationship Specialty Start Date End Date Mario Glasgow DO [address] [facility] [place] [address] PCP - General Family Medicine 12/30/23 Erin Chavez MD [address] [place] [address] Urology 01/01/23 Fundraising Specialist Relationship Specialty Start Date End Date Mario Glasgow DO [address] [facility] [place] [address] PCP - General Family Medicine 12/30/23 Erin Chavez MD [address] [place] [address] Urology 01/01/23 Team Status: Inactive Member Role Status Dates Mario Glasgow DO Primary Care Provid er, Attending Provider Active Start: April 26, 2024 End: April 26, 2024 Goals (unrecognized section and content) Goals may be documented in a n alternate section Source Comments (unrecognize d section and content) In the event this informatio n is protected by the Federal Confidentiality of Alcohol and Drug Abuse Patient Records regulations: The Federal rules restrict any use of the information to criminally investigate or prosecute any alcohol or drug abuse patient.[facility] System[facility] the event this information is protected by the Federal Confidentiality of Alcohol and Drug Abuse Patient Records regulations: The Federal rules restrict any use of the information to criminally investigate or prosecute any alcohol or drug abuse patient.[facility] SystemIn the event this information is protected by the Federal Confidentiality of Alcohol and Drug Abuse Patient Records regulations: The Federal rules restrict any use of the information to criminally investigate or prosecute any alcohol or drug abuse patient.[facility] SystemIn the event this information is protected by the Federal Confidentiality of Alcohol and Drug Abuse Patient Records regulations: The Federal rules restrict any use of the information to criminally investigate or prosecute any alcohol or drug abuse patient.[facility] SystemIn the event this information is protected by the Federal Confidentiality of Alcohol and Drug Abuse Patient Records regulations: The Federal rules restrict any use of the information to criminally investigate or prosecute any alcohol or drug abuse patient.[facility] SystemIn the event this information is protected by the Federal Confidentiality of Alcohol and Drug Abuse Patient Records regulations: The Federal rules restrict any use of the information to criminally investigate or prosecute any alcohol or drug abuse patient.[facility] SystemIn the event this information is protected by the Federal Confidentiality of Alcohol and Drug Abuse Patient Records regulations: The Federal rules restrict any use of the information to criminally investigate or prosecute any alcohol or drug abuse patient.[facility] SystemIn the event this information is protected by the Federal Confidentiality of Alcohol and Drug Abuse Patient Records regulations: The Federal rules restrict any use of the information to criminally investigate or prosecute any alcohol or drug abuse patient.[facility] SystemIn the event this information is protected by the Federal Confidentiality of Alcohol and Drug Abuse Patient Records regulations: The Federal rules restrict any use of the information to criminally investigate or prosecute any alcohol or drug abuse patient.[facility] SystemIn the event this information is protected by the Federal Confidentiality of Alcohol and Drug Abuse Patient Records regulations: The Federal rules restrict any use of the information to criminally investigate or prosecute any alcohol or drug abuse patient.[facility] SystemIn the event this information is protected by the Federal Confidentiality of Alcohol and Drug Abuse Patient Records regulations: The Federal rules restrict any use of the information to criminally investigate or prosecute any alcohol or drug abuse patient.[facility] SystemIn the event this information is protected by the Federal Confidentiality of Alcohol and Drug Abuse Patient Records regulations: The Federal rules restrict any use of the information to criminally investigate or prosecute any alcohol or drug abuse patient.[facility] SystemIn the event this information is protected by the Federal Confidentiality of Alcohol and Drug Abuse Patient Records regulations: The Federal rules restrict any use of the information to criminally investigate or prosecute any alcohol or drug abuse patient.[facility] SystemIn the event this information is protected by the Federal Confidentiality of Alcohol and Drug Abuse Patient Records regulations: The Federal rules restrict any use of the information to criminally investigate or prosecute any alcohol or drug abuse patient.[facility] SystemIn the event this information is protected by the Federal Confidentiality of Alcohol and Drug Abuse Patient Records regulations: The Federal rules restrict any use of the information to criminally investigate or prosecute any alcohol or drug abuse patient.[facility] SystemIn the event this information is protected by the Federal Confidentiality of Alcohol and Drug Abuse Patient Records regulations: The Federal rules restrict any use of the information to criminally investigate or prosecute any alcohol or drug abuse patient.[facility] SystemIn the event this information is protected by the Federal Confidentiality of Alcohol and Drug Abuse Patient Records regulations: The Federal rules restrict any use of the information to criminally investigate or prosecute any alcohol or drug abuse patient.[facility] SystemIn the event this information is protected by the Federal Confidentiality of Alcohol and Drug Abuse Patient Records regulations: The Federal rules restrict any use of the information to criminally investigate or prosecute any alcohol or drug abuse patient.[facility] SystemIn the event this information is protected by the Federal Confidentiality of Alcohol and Drug Abuse Patient Records regulations: The Federal rules restrict any use of the information to criminally investigate or prosecute any alcohol or drug abuse patient.[facility] SystemIn the event this information is protected by the Federal Confidentiality of Alcohol and Drug Abuse Patient Records regulations: The Federal rules restrict any use of the information to criminally investigate or prosecute any alcohol or drug abuse patient.[facility] SystemIn the event this information is protected by the Federal Confidentiality of Alcohol and Drug Abuse Patient Records regulations: The Federal rules restrict any use of the information to criminally investigate or prosecute any alcohol or drug abuse patient.[facility] SystemIn the event this information is protected by the Federal Confidentiality of Alcohol and Drug Abuse Patient Records regulations: The Federal rules restrict any use of the information to criminally investigate or prosecute any alcohol or drug abuse patient.[facility] SystemIn the event this information is protected by the Federal Confidentiality of Alcohol and Drug Abuse Patient Records regulations: The Federal rules restrict any use of the information to criminally investigate or prosecute any alcohol or drug abuse patient.[facility] SystemIn the event this information is protected by the Federal Confidentiality of Alcohol and Drug Abuse Patient Records regulations: The Federal rules restrict any use of the information to criminally investigate or prosecute any alcohol or drug abuse patient.[facility] SystemIn the event this information is protected by the Federal Confidentiality of Alcohol and Drug Abuse Patient Records regulations: The Federal rules restrict any use of the information to criminally investigate or prosecute any alcohol or drug abuse patient.[facility] SystemIn the event this information is protected by the Federal Confidentiality of Alcohol and Drug Abuse Patient Records regulations: The Federal rules restrict any use of the information to criminally investigate or prosecute any alcohol or drug abuse patient.[facility] FOR RECORDS PERTAINING TO PATIENTS WHO ARE [...] BE BASED ON THE PRIMARY CLINICAL RECORDS. [facility] [employer] [facility]. provides no warranty or guarantee of the accuracy or completeness of information in this document.
--- NOTE | 2024-05-02 22:28 | ED.SKABFB1 ---
HPI - Skin/Abscess/Foreign Bdy General Chief complaint: Skin/Abscess/Foreign Body Stated complaint: RASH Time Seen by Provider: 05/02/24 22:16 Mode of arrival: walk-in Limitations: no limitations History of Present Illness HPI narrative: This 34-year-old female with multiple medication allergies presents for evaluation of a pruritic rash. She states the rash started on her ears and elbows 2 days ago. She now has urticarial wheals on her legs, right ankle hands and low back. She is not having any difficulty breathing or swallowing. She denies any change in her beauty products or medications. She states she knows she has very sensitive skin so does not ever change what she uses in terms of soaps, shampoos and skin care items. She is not on any new medications. She has not had a fever. She denies any chest pain or shortness of breath. Related Data Home Medications ?Medication ?Instructions ?Recorded ?Confirmed tizanidine 4 mg tablet 4 mg PO BEDTIME muscle spasticity 11/17/22 03/21/24 alprazolam 2 mg PO BID PRN anxiety 12/24/22 03/21/24 Allergies Allergy/AdvReac Type Severity Reaction Status Date / Time nitrofurantoin (From Allergy Severe itching Verified 03/21/24 19:21 Macrobid) azithromycin (From Zithromax) Allergy Unknown Unknown Verified 03/21/24 19:21 ciprofloxacin (From Cipro) Allergy Unknown Hives Verified 03/21/24 19:21 ketorolac (From Toradol) Allergy Unknown Unknown Verified 03/21/24 19:21 metoclopramide (From Reglan) Allergy Unknown Unknown Verified 03/21/24 19:21 Penicillins Allergy Unknown Unknown Verified 03/21/24 19:21 zolpidem (From Ambien) AdvReac agitation Verified 03/21/24 19:21 Review of Systems ROS Status of ROS 10 or more systems reviewed and unremarkable except as noted in history and below [facility] Medical History (Updated 05/02/24 @ 23:15 by Ayla Clifford MD) Kidney stones ?N20.0 - Calculus of kidney (ICD-10) POTS (postural orthostatic tachycardia syndrome) ?G90.A - Postural orthostatic tachycardia syndrome [POTS] (ICD-10) Migraines ?G43.909 - Migraine, unspecified, not intractable, without status migrainosus (ICD-10) Seizure ?R56.9 - Unspecified convulsions (ICD-10) History of anxiety ?Z86.59 - Personal history of other mental and behavioral disorders (ICD-10) History of depression ?Z86.59 - Personal history of other mental and behavioral disorders (ICD-10) History of seizure ?Z87.898 - Personal history of other specified conditions (ICD-10) Surgical History (Updated 01/22/23 @ 06:55 by Xochitl Weaver) History of colonoscopy ?Z98.890 - Other specified postprocedural states (ICD-10) History of nephrostomy History of bunionectomy of right great toe ?Z98.890 - Other specified postprocedural states (ICD-10) H/O LEEP ?Z98.890 - Other specified postprocedural states (ICD-10) S/P laparoscopy ?Z98.890 - Other specified postprocedural states (ICD-10) Hx of cystoscopy ?Z98.890 - Other specified postprocedural states (ICD-10) History of hysterectomy ?Z90.710 - Acquired absence of both cervix and uterus (ICD-10) History of tubal ligation ?Z98.51 - Tubal ligation status (ICD-10) Family History (Updated 01/14/23 @ 12:43 by Soraida Blount) Father Family history of COPD (chronic obstructive pulmonary disease) Family history of cancer Family history of myocardial infarction Social History (Updated 01/22/23 @ 06:57 by Xochitl Weaver) Within the past year, how often did you have a drink containing alcohol: monthly or less Smoking status: Never smoker Non-prescribed substance use: denies use Highest level of school completed/degree received: some college, no degree Little interest or pleasure in doing things: not at all Feeling down, depressed, or hopeless: not at all Exam Narrative Exam Narrative: Vital signs and Nursing Notes reviewed: Vital signs are stable, she is not hypoxic with pulse ox of 98% on room air General: Awake, alert, oriented, no acute distress, overweight female resting comfortably on the stretcher, she is scratching at her ankles HEENT: Normocephalic atraumatic, mucous membranes are moist and pink, eyes are clear, normal conjunctiva, vision is grossly intact, posterior pharynx is normal in appearance. There is no swelling of the tongue, uvula or pharyngeal soft tissues Neck: Supple, no meningeal signs, no anterior or posterior cervical lymphadenopathy Chest: Lungs are clear to auscultation with good air entry, there is no wheezing rhonchi or rales appreciated no accessory muscle use, patient is speaking in complete sentences-no chest wall tenderness to palpation CVS: Regular rate and rhythm S1-S2, no murmurs rubs or gallops, pulses are brisk and equal bilaterally ABD: Soft, nondistended, nontender, no rebound guarding or rigidity, bowel sounds are normal, no pulsatile masses appreciated Extremities: Moving all extremities, no lower extremity tenderness or swelling noted, negative Homans' sign, pulses are brisk and equal bilaterally Skin: Faint pink rash with mild swelling on the right foot and lateral malleolus, there are urticarial wheals on the patella bilaterally, mild urticarial wheals on the upper inner thighs and left lower posterior lumbar region. There is no petechia or purpura noted. Neuro: No focal deficits Constitutional Vital Signs, click to edit/add: Last Vital Signs Temp 97.8 F 05/02/24 22:15 Pulse 83 05/02/24 22:15 Resp 16 05/02/24 22:15 BP 117/84 05/02/24 22:15 Pulse Ox 98 05/02/24 22:15 O2 Del Method Room Air 05/02/24 22:15 Course Vital Signs Vital signs: Vital Signs Temperature 97.8 F 05/02/24 22:15 Pulse Rate 83 05/02/24 22:15 Respiratory Rate 16 05/02/24 22:15 Blood Pressure 117/84 05/02/24 22:15 Pulse Oximetry 98 05/02/24 22:15 Oxygen Delivery Method Room Air 05/02/24 22:15 Temperature 97.8 F 05/02/24 22:15 Pulse Rate 83 05/02/24 22:15 Respiratory Rate 16 05/02/24 22:15 Blood Pressure 117/84 05/02/24 22:15 Pulse Oximetry 98 05/02/24 22:15 Oxygen Delivery Method Room Air 05/02/24 22:15 MDM - Skin/Abscess/Foreign Bdy MDM Narrative Medical decision making narrative: This 34-year-old female presents for evaluation of a pruritic rash that started yesterday and despite taking Benadryl at home did not resolve. She does not have any nausea or vomiting. She denies any difficulty breathing or swallowing. There is no swelling of her tongue, uvula or pharyngeal soft tissues. She does not have any stridor. She has some urticarial rash on her knees back and hands. She was medicated with IM Solu-Medrol, IM Benadryl and oral Pepcid. On reevaluation her rash has not worsened but is slow to resolve. I explained to her that this may take some period of time to fully resolve and instructed her on cool baths and showers, refraining from anything new in her diet or environment and she will be discharged home with a Medrol Dosepak and Pepcid to take for the next 10 days. She has Benadryl at home which I encouraged her to to continue taking. Discharge Plan Discharge Chief Complaint: Skin/Abscess/Foreign Body Clinical Impression: Urticaria Patient Disposition: Home, Self-Care Time of Disposition Decision: 23:13 Condition: Good Prescriptions / Home Meds: No Action tizanidine 4 mg tablet 4 mg PO BEDTIME alprazolam [Xanax] 2 mg PO BID PRN (Reason: anxiety) Print Language: Puerto Rican Instructions: Urticaria (ED) Referrals: MARIO GUAMAN [Primary Care Provider] - 1 week
[2024-05-02] MEDS: DIPHENHYDRAMINE HCL 50 MG/ML VIAL 25 MG IM (22:56)
[2024-05-02] MEDS: METHYLPREDNISOLONE SOD SUCC PF 125 MG/2 ML VIAL IM (22:56)
[2024-05-02] MEDS: FAMOTIDINE 20 MG TABLET 40 MG PO (22:56)
--- NOTE | 2024-05-02 23:01 | PC.NURSE ---
PT STATES RAISED ITCHY BURNING RASH TO HANDS FEET TRUNK AND LEGS. NO KNOWN EXPOSURE
== END 2024-05-02 23:21 | disposition home or self-care (01) ==
PROVIDERS: Emergency Provider Emergency Medicine; PCP Family Medicine
DX: L50.9 Urticaria, unspecified (principal); Z90.710 Acquired absence of both cervix and uterus; Z98.51 Tubal ligation status
CPT/HCPCS: 96372; 99284; J1200; J2919

== ENCOUNTER 2024-05-04 20:22 | Emergency (ER) | payer OTHER, SELFPAY ==
[2024-05-04 20:26] VITALS: BP 138/98; PULSE 100; TEMP 36.3; O2SAT 97; BMI 38.3
--- OUTSIDE RECORDS SUMMARY | 2024-05-04 20:29 | XMS_ITS | CCD ---
Author Organization [facility] Care Team Providers Care Production Cook Name Role Phone MARIO GLASGOW Primary Care Physician [phone] Carol Ann Chacon Unavailable Unavailable Mario Glasgow Unavailable Vi Benites Unavailable DO Mario Glasgow Primary Care Provider DO Rell Garcia Attending Provider [phone] DO Jose Cade Emergency Provider DO Mario [...] Primary Care Provider KIKE Alvarez Emergency Provider [phone] Pee, DO Mario M. Primary Care Provider KIKE Alvarez Emergency Provider [phone] Ishtz, DO Lucero Attending Provider [phone] Em LASSITER, Keli Cervantes Primary Care Provider [phone] Erin Chavez MD Unavailable Em LASSITER, Keli Cervantes Primary Care Provider [phone] RELL GARCIA Attending Unavailable RELL GARCIA Referring [...] Mario Glasgow DO Primary Care Provider [phone] Bhanu Alvarez Admitting Unavailable Bhanu Alvarez Attending Unavailable Pee, Mario MHernandez Primary Care Unavailable Itzkowitz, Lucero Attending Unavailable Pee, Mario M. Primary Care Unavailable Itzkowitz, Lucero Admitting Unavailable Pee, Mario MHernandez Admitting Unavailable Pee, Mario M. Attending Unavailable Pee, DO Mario MHernandez Attending Provider [phone] FRANCHESCA MAN Referring Unavailable KELI STRICKLAND Primary Care Unavailable MARIO GLASGOW Primary Care Unavailable TIFFANY, ADELE ROBINS Referring Unavailabl e CHICHURA, ADELE ROBINS Admitting Unavailabl e CHICHURA, ADELE ROBINS Attending Unavailabl e SPETTELKELI Primary Care Unavailable PEE, [facility] Primary Care Unavailable CHICHU, ADELE ROBINS Referring Unavailabl e PEE, [facility] Primary Care Unavailable CHICHURA, ADELE ROBINS Referring Unavailabl e PEE, [facility] Primary Care Unavailable CHICHURA, ADELE ROBINS Referring Unavailabl e GREENHOUSE, FRANCHESCA Arenas Referring Unavailable CHICHURA, ADELE ROBINS Attending Unavailabl e SPETTEL, KELI Cervantes Primary Care Unavailable PEE, MARIO VELAZQUEZ Primary Care Unavailable SANCHEZ, ANASTASIA Attending Unavailable SANCHEZ, ANASTASIA Attending Unavailable PEE, MARIO CAROLINE Primary Care Unavailable SANCHEZ, ANASTASIA Referring Unavailable PEE, MARIO CAROLINE Primary Care Unavailable PEE, [facility] Primary Care Unavailable DEVAUGHN FITCH Attending Garcia [...] Azithromycin; Translations: [azithromycin] Drug Allergy 03-06-20 Unknown [facility] Other (4 sources) cefTRIAXone; Translations: [ceftriaxone] Drug Allergy Mean (qualifier value) [facility] (20 sources) Ciprofloxacin; Translations: [ciprofloxacin] Drug Allergy 03-06-20 Unknown [facility] Other (20 sources) Dicyclomine; Translations: [dicyclomine] Drug Allergy 03-06-20 Unknown [facility] (20 sources) Ketorolac; Translations: [ketorolac] Drug Allergy 03-06-20 Unknown [facility] Other Comment on above: patients it makes he r mean (20 sources) Metoclopramide; Translations: [metoclopramide] Drug Allergy 03-06-20 21 Unknown [facility] Other Comment on above: diarrhea (20 sources) Morphine; Translations: [morphine] Drug Allergy 06-03-19 24 Hives, Hives-IV [facility] Other Comment on above: causes hives (20 sources) NITROFURANTOIN, MACROCRYSTALS / Nitrofurantoin, Monohydrate; Translations: [nitrofurantoin] Drug Allergy Itching, Unknown [facility] Other (20 sources) Penicillin; Translations: [penicillin] Drug Allergy Unknown (qualifier value) [facility] Other (4 sources) zolpidem; Translations: [zolpidem] Drug Allergy Agitation [facility] (20 sources) diphenhydrAMINE Drug Allergy IV [facility] Other (20 sources) LORazepam; Translations: [LORAZEPAM] Drug Allergy 03-06-20 21 [facility] Comment on above: patient states it ma kes her violent (20 sources) Penicillin V Drug Allergy Unknown [facility] Other (10 sources) diphenhydrAMINE Drug Allergy IV Scint-Xes [facility] Other (20 sources) DULoxetine Drug Allergy 06-03-19 24 worsen depression [facility] (20 sources) Nitrofurantoin; Translations: [nitrofurantoin] Drug Allergy 03-06-20 21 Unknown [facility] (20 sources) Penicillins; Translations: [Penicillins] Allergy to substance 09-17-19 13 [facility] (1 source) Azithromycin Drug Allergy 09-17-19 13 [facility] (1 source) Ciprofloxacin Drug Allergy 09-17-19 13 [facility] (1 source) Dicyclomine Drug Allergy 07-20-19 15 [facility] (1 source) Iothalamate Drug Allergy 09-17-19 13 [facility] (1 source) Ketorolac Drug Allergy 03-11-20 13 [facility] (1 source) LORazepam Drug Allergy 09-10-19 16 [facility] (1 source) Nitrofurantoin Drug Allergy 09-17-19 13 [facility] (1 source) LORazepam; Translations: [Ativan] Drug Allergy [facility] (17 sources) methylPREDNISolone ; Translations: [methylprednisolon e] Drug Allergy 12-26-19 Other: See Comments [facility] (17 sources) predniSONE; Translations: [PREDNISONE] Drug Allergy 12-26-19 Intolerance [facility] (1 source) Metoclopramide; Translations: [METOCLOPRAMIDE HCL] Drug Allergy 12-17-19 [facility] (1 source) NITROFURANTOIN MONOHYD/M-CRYST; Translations: [NITROFURANTOIN MONOHYD/M-CRYST] Propensity to adverse reactions to drug (disorder) 12-17-19 [facility] (1 source) Azithromycin Drug Allergy 10-08-19 [facility] (1 source) Ciprofloxacin Drug Allergy 10-08-19 [facility] (1 source) Dicyclomine Drug Allergy 10-08-19 [facility] (1 source) DULoxetine Drug Allergy 10-08-19 [facility] (1 source) Ketorolac Drug Allergy 10-08-19 [facility] Repository (1 source) LORazepam Drug Allergy 10-08-19 [facility] Rep[facility] (1 source) Metoclopramide Drug Allergy 10-08-19 [facility] Rep[facility] (1 source) Morphine Drug Allergy 06-03-19 [facility] Repository Medications Current Medications Medication Drug Class(es) Dates Sig (Normalized) Sig (Original) acetaminophen 325 mg oral tablet (8 sources) Start: 01-08-2024 take 2 tablets by mouth every six hours as needed acetaminophen (TYLENOL) 325 mg tablet Take 2 tablets by mouth every 6 hours as needed (for pain.). 20 tablet 01/08/2024 Active Acetaminophen / HYDROcodone (14 sources) Opioid Agonist Start: 05-16-2021 [place] 5/325 Tab Oral, q6hr, Refill(s) 0 Start [...] 90 tab(s), Refills(s) 3, Bladder problems, Pharmacy: [facility]/pharmacy #[id number], 165, cm, 05/18/21 11:56:00 EST, Height/Length [...] pain, # 12 tab(s), Refills(s) 0, Pharmacy: [facility]/pharmacy #[id number], 165, cm, 11/22/22 19:18:00 EDT, Height/Length [...] procedure, # 2 tab(s), Refills(s) 0, Pharmacy: [facility]/pharmacy #[id number], 165, cm, 05/18/21 11:56:00 EST, Height/Length Dosing, 100, kg, 05/16/21 9:5... 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 THERAPY] Onset: 08-15-2022 Episodic Other [...] Office Visit (BRCRMN ) ----- SULLY ENRIQUEZ ([id number]) 1990 F Date Time Provider Department 03/12/24 10:00 AM ANASTASIA MON [facility] During your visit today, we recorded the following information about you: Weight Height 105.7 kg 1.651 m Anastasia Mon PA-C 03/15/2024 4:18 PM Signed [facility] [place] Department of Breast Surgical Oncology [facility] FOLLOW UP HPI: Sully Enriquez is a [...] Strain: Low Risk (12/17/2023) Received from [facility] Overall Financial Resource Strain (CARDIA) Difficulty of Paying Living Expenses: Not hard at all Food Insecurity: No Food Insecurity (12/17/2023) Received from [facility] Hunger Vital Sign (more content not included)... Normal [facility] DBT Breast - right diagnosti [...] Edgard Cole M.D. Electronically signed on: 03/12/2024 Sagger Filler: MAGVIW Transcribe Date/Time: Mar 12 2024 10:58A Dictated by : EDGARD COLE MD This examination was interpreted and the report reviewed and electronically signed by: EDGARD COLE MD on Mar 12 2024 1:18PM [facility] DIVISION OF RADIOLOGY * * *Final Report* * * DATE OF EXAM: Mar 12 2024 11:12AM MCW 0629 - SAJI ISAACG W DOMINIC RT / PROCEDURE REASON: multiple diagnoses * * * * Physician Interpretation * * * * RESULT: [address] [place] [address] #[id number] - [facility] DIAG W DOMINIC RT #[id number] - [facility] BREAST LTD RT HISTORY: Patient is 34 [...] Mar 12 2024 11:12AM [facility]W 0629 - [facility] MARCO W DOMINIC RT / PROCEDURE REASON: multiple diagnoses * * * * Physician Interpretation * * * * RESULT: [address] [place] [address] #[id number] - [facility] MARCO W DOMINIC RT #[id number] - [facility] US BREAST LTD RT HISTORY: Patient is [...] Edgard Cole M.D. Electronically signed on: 03/12/2024 Sagger Filler: BISHOP Transcridalton Date/Time: Mar 12 2024 10:58A Dictated by : EDGARD COLE MD This examination was interpreted and the report reviewed and electronically signed by: EDGARD COLE MD on Mar 12 2024 1:18PM [facility] SAJI DIAG W DOMINIC RTon 024 SAJI DIAG W DOMINIC RT * * *Final Report* * * DATE OF EXAM: Mar 12 2024 11:12AM Mykel 0629 - SAJI GRAYG W DOMINIC RT / PROCEDURE REASON: multiple diagnoses * * * * Physician Interpretation * * * * RESULT: [address] [place] [address] #[id number] - SAJI MARCO FORRESTO RT #[id number] - [facility] BREAST LTD RT HISTORY: Patient is 34 [...] Edgard Cole M.D. Electronically signed on: 03/12/2024 Sagger Filler: BISHOP Transcribe Date/Time: Mar 12 2024 10:58A Dictated by : EDGARD COLE MD This examination was interpreted and the report reviewed and electronically signed by: EDGARD COLE MD on Mar 12 2024 1:18PM EST [id number] Normal [facility] Trendabl BREAST LTD RTon 03-12 [facility] Trendabl BREAST LTD RT * * *Final Report* * * DATE OF EXAM: Mar 12 2024 11:41AM W 0594 - [facility] Trendabl BREAST Cocodrilo Dog RT / PROCEDURE REASON: multiple diagnoses * * * * Physician Interpretation * * * * RESULT: [place] [address] #[id number] - [facility] DIAG W DOMINIC RT #[id number] - [facility] Trendabl BREAST Cocodrilo Dog RT HISTORY: Patient is 34 years old [...] Edgard Cole M.D. Electronically signed on: 03/12/2024 Sagger Filler: BISHOP Transcribe Date/Time: Mar 12 2024 11:27A Dictated by : EDGARD COLE MD This examination was interpreted and the report reviewed and electronically signed by: EDGARD COLE MD on Mar 12 2024 1:18PM EST [id number] Normal [facility] No Panel InformationOrdered By: Ccf Provider on 03-12-2024 [facility] No Panel Informationon 03-12 Radiology Study observation (narrative) [facility] US Breast - right limitedon 03-12-2024 IMPRESSION: [...] Edgard Cole M.D. Electronically signed on: 03/12/2024 Sagger Filler: BISHOP Trujilloridalton Date/Time: Mar 12 2024 11:27A [...] Physician Interpretation * * * * RESULT: [address] [place] [address] #[id number] - [facility] MARCO ALFARO RT #[id number] - [facility] Trendabl BREAST Cocodrilo Dog RT HISTORY: Patient is 34 years old [...] region. DIVISION OF RADIOLOGY Provider, Armida Stefani [facility] - 03/12/2024 * * *Final Report* * * DATE OF EXAM: Mar 12 2024 11:41AM MCMykel 0594 - [facility] Trendabl BREAST Cocodrilo Dog RT / PROCEDURE REASON: multiple diagnoses * * * * Physician Interpretation * * * * RESULT: [address] [address] #[id number] - [facility] MARCO Hogue DOMINIC RT #[id number] - [facility] US BREAST LTD RT HISTORY: Patient is [...] Edgard Cole M.D. Electronically signed on: 03/12/2024 Sagger Filler: BISHOP Transcribe Date/Time: Mar 12 2024 11:27A Dictated by : EDGARD COLE MD This examination was interpreted and the report reviewed and electronically signed by: EDGARD COLE MD on Mar 12 2024 1:18PM [facility] CNOVon 02-17-2024 CNOV Office Visit (ENDOLN ) ----- SULLY ENRIQUEZ ([id number]) 1990 F Date Time Provider Department 02/17/24 [...] (more content not included)... Normal [facility] CNOVon 01-30-2024 CNOV Office Visit (SLOANCRMN ) ----- SULLY ENRIQUEZ ([id number]) 1990 F Date Time Provider Department 01/30/24 [...] at di (more content not included)... Normal [facility] US BREAST LTD RTon 01-29 [facility] US BREAST LTD RT * * *Final Report* * * DATE OF EXAM: Jan 30 2024 10:28AM MCW 0594 - [facility] US BREAST LTD RT / PROCEDURE REASON: multiple diagnoses * * * * Physician Interpretation * * * * RESULT: [facility] [address] [facility] [facility] [address] [place] [address] HISTORY: Patient is 33 years old and [...] Henrique Oro M.D. Electronically signed on: 01/30/2024 Sagger Filler: BISHOP Transcribe Date/Time: Jan 30 2024 10:14A Dictated by : LOUIE DOLL DO This examination was interpreted and the report reviewed and electronically signed by: HENRIQUE ORO MD on Jan 30 2024 10:36AM EST [id number] Normal [facility] US Breast - right limitedon 01-30-2024 IMPRESSION: There is no abnormality seen in the breast to correspond with the reported palpable abnormalities. Clinical follow-up is recommended. Follow up with ACR and NCCN guidelines is otherwise recommended. BI-RADS Category 1: Negative Interpreting Radiologist: Henrique Oro M.D. Electronically signed on: 01/30/2024 Sagger Filler: BISHOP Transcridalton Date/Time: Jan 30 2024 10:14A Dictated by : LOUIE DOLL DO This examination was interpreted and the report reviewed and electronically signed by: HENRIQUE ORO MD on Jan 30 2024 10:36AM EST DIVISION OF RADIOLOGY * * *Final Report* * * DATE OF EXAM: Jan 30 2024 10:28AM [facility] 0594 - SAJI Adku RT / PROCEDURE REASON: multiple diagnoses * * * * Physician Interpretation * * * * RESULT[address] [place] [id number] HISTORY: Patient is 33 years old and [...] cystic mass identified. DIVISION OF RADIOLOGY Provider, [facility] - 01/30/2024 * * *Final Report* * * DATE OF EXAM: Jan 30 2024 10:28AM [facility] 0594 - SAJI Adku RT / PROCEDURE REASON: multiple diagnoses * * * * Physician Interpretation * * * * RESULT: [address] [address] HISTORY: Patient is 33 years old and [...] Henrique Oro M.D. Electronically signed on: 01/30/2024 Sagger Filler: BISHOP Transcribe Date/Time: Jan 30 2024 10:14A Dictated by : LOUIE DOLL, DO This examination was interpreted and the report reviewed and electronically signed by: HENRIQUE ORO MD on Jan 30 2024 10:36AM EST [facility] Radiology Study observation (narrative) [facility] US Breast - right limitedOrd ered By: Ccf Provider on 01-30-2024 [facility] CNOVon 01-19-2024 CNOV Office Visit (BRCRMN ) ----- USLLY ENRIQUEZ ([id number]) 1990 F Date Time Provider Department 01/19/24 [...] Encounter Status:Closed by ANASTASIA MON on 01/19/24 [facility] Kt 01-09-2024 GÓMEZN Telephone (BRCRMN) ----- ZOESULLY ([id number]) 1990 F Date Time Provider Department 01/09/24 ADELE SUTTON During your visit today, we recorded the following information about you: Noel Duffy Anyi M 01/09/2024 1:59 PM Signed Patient called stating that since last night she is experiencing right side pain and arm movement makes it worse (level 8), warm to touch, nausea. Patient can be reached at [phone]. Thanks Kobe Wallis 01/09/2024 4:36 PM Signed [...] KOBE WALLIS on 01/09/24 Normal [facility] ANES POSTPROC EVALon 024 ANES POSTPROC EVAL HNO ID: [id number] Author: FAINA DAVIS MD Service: Anesthesiology Author Type: Anesthesiologist Type: Anesthesia Postprocedure Evaluation Filed: 01/08/2024 11:15 Note Text: POST ANESTHESIA EVALUATION NOTE : 1990 Procedure Summary Date: 01/08/24 Room / Location: [address] Anesthesia Start: 731 Anesthesia Stop: 922 [...] January 08, 2024 TIME: 11:15 AM CSN: [id number] Normal [facility] ANES PRE-OPon 01-08-2024 ANES PRE-OP HNO ID: [id number] Author: BAMBI MAGANA DO Service: Anesthesiology Author Type: Anesthesiologist Type: Anesthesia Preprocedure Evaluation Filed: 01/08/2024 07:07 Note Text: ANESTHESIOLOGY DAY OF SURGERY NOTE : 1990 Procedure Information Date/Time: 01/08/24729 Procedure: RIGHT ZAYDA EXCISIONAL BIOPSY (Right: Breast) Location: [address] Surgeons: Adele Sutton MD Estimated body [...] and consent discussed: yes. Patient / Responsible [employer] Party agrees to proceed: yes Patient / [...] January 08, 2024 TIME: 6:57 AM CSN: [id number] Normal [facility] HISTORY PHYSICALon HISTORY PHYSICAL HNO ID: [id number] Author: ADELE SUTTON MD Service: General Surgery Author Type: Physician Type: H&P Filed: 01/08/2024 07:25 Note Text: UPDATED HISTORY AND PHYSICAL EXAMINATION SERVICE DATE: 01/08/2024 SERVICE TIME: 7:25 AM SENSITIVE EXAMINATION CONSENT: The sensitive examination was discussed with the Patient or Patient's Authorized Court Clerk. As applicable, any other physician, advance practice provider, medical student, or other health professional student that will be observing or involved in the sensitive examination for educational or training purposes was discussed with the Patient or Authorized Court Clerk. The Patient or Authorized Court Clerk has agreed to proceed with the sensitive [...] January 08, 2024 TIME: 7:25 AM Normal [facility] SURGICAL BREAST SPECIMEN RTon 01-08-2024 [facility] SURGICAL BREAST SPECIMEN RT * * *Final Report* * * DATE OF EXAM: Jan 08 2024 8:41AM [facility] 0639 - [facility] SURGICAL BREAST SPECIMEN RT / PROCEDURE REASON: Right breast surgical specimen * * * * Physician Interpretation * * * * [place] [address] HISTORY: Right Specimen Radiograph CORRELATION: A single image of the surgical specimen demonstrates a ZAYDA human factors engineer, a hydromark open coil clip, and a buckle clip in the specimen. IMPRESSION: SPECIMEN A single image of the surgical specimen demonstrates a ZAYDA human factors engineer, a hydromark open coil clip, and a buckle clip in the specimen. SUMMARY: Urgent Results: The results of the specimen radiograph were discussed with Dr. Sutton in the O.R. On 01/08/2024 at 0847. Interpreting Radiologist: Kristi Cheek M.D. Sagger Filler: BISHOP Transcribe Date/Time: Jan 08 2024 8:41A Dictated by : KRISTI CHEEK MD This examination was interpreted and the report reviewed and electronically signed by: KRISTI CHEEK MD on Jan 08 2024 8:50AM EST [id number] Normal [facility] OPERATIVE NOon 01-08-2024 OPERATIVE NO HNO ID: [id number] Author: ADELE SUTTON MD Service: General Surgery Author Type: Physician Type: Operative Report Filed: 01/08/2024 08:43 Note Text: OPERATIVE/PROCEDURE REPORT LOG ID: [id number] SURGERY DATE: 01/08/2024 Incision/Procedure Start Time: 8:00 AM Incision Close/Procedure End Time: 8:42 AM Surgeon(s) and Preschool Program Director(s): Surgeons and Role: * Adele Sutton MD - Primary * Modesto Goff MD - Resident - Assisting No Additional Staff SURGERY/PROCEDURES: RIGHT breast ZAYDA BOOMBOAT OPERATOR localized excisional biopsy Anesthesia: General Breast History: 06/2023 - Self palpated RIGHT breast mass. 06/25/23 ([facility]) - diagnostic bilateral mammogram/US - diffuse heterogenous density. In the right breast at 8:00 approximately 4 to 5 cm from the nipple, is a hypoechoic avascular area that measures 2.0 x 1.6 x 1.1 cm. In the right upper outer quadrant of the breast at 2.8 x 1.0 x 2.8 cm lymph node is seen. There is no cortical thickening. 07/07/23 ([facility] - US guided CNB 8:00 4-5 CMFN [...] laterality, and other pertinent information. The ZAYDA BOOMBOAT OPERATOR was localized within the breast, and its location was marked on the skin. Local anesthesia was infiltrated in a dermal and deep parenchymal pattern. A lateral inframammary incision was made. Flaps were created around the lesion, using the ZAYDA BOOMBOAT OPERATOR probe for guidance, with an adequate margin [...] imaging was performed which identified the ZAYDA BOOMBOAT OPERATOR, the biopsy clips, and the lesion of [...] Collected by Time Destination A : zayda human factors engineer right breast. (suture sr short superior, long [...] DATE: 01/08/2024 TIME: 8:42 AM PAGER/CONTACT #: [phone] Normal [facility] SURGICAL PATHOLOGYon 024 CASE REPORT Normal [facility] Comment on above: Order Comment: Speci men Type: TISSUE SPECIMENOrdering Facility: [facility] Address: [address] [place] [address] Result Comment: [facility] Pathology Report Case: [id number] Authorizing Provider: Adele Sutton MD Collected: 01/08/2024 07:10 AM Ordering Location: Ambulatory Surgery Received: 01/08/2024 09:04 AM Pathologist: Pat Silveira MD Specimen: Breast, Right, Excision of Lesion, zayda human factors engineer right breast. (suture sr short superior, long lateral) Performed By: #### S ####[facility]ORY[facility] [id number] [address] LABIA [id number] [place] [address] [place] CLINICAL HISTORY Normal [facility] Comment on above: Order Comment: Speci men Type: TISSUE SPECIMENOrdering Facility: 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 Address: [address] [place] [address] Result Comment: Righ t breast mass, ZAYDA-localized excision: - Fibroadenoma. - Adjacent breast tissue with cystic change, apocrine metaplasia, usual ductal hyperplasia, and columnar cell change. - Core biopsy site changes and clip x 2. Performed By: #### S ####[facility] LABORATORYCLIA [id number] [address] LABCLIA [id number] [place] [address] [place] FINAL PERFORMING LAB Normal [facility] Comment on above: Order Comment: Speci men Type: TISSUE SPECIMENOrdering Facility: [facility] Address: [address] [place] [address] Result Comment: Diag nostic interpretation performed at [facility], [address] [facility], [place] [address] CLIA# [id number] Prosthetics Technician: Columba Villasenor M.D. Performed By: #### S ####[facility] LABORATORYCLIA [id number] [address] LABCLIA [id number] [place] [address] [place] GROSS DESCRIPTION Normal [facility] Comment on above: Order Comment: Speci men Type: TISSUE SPECIMENOrdering Facility: [facility] Address: [address] [place] [address] Result Comment: Emma pondt, Right, Excision of [...] prior to sectioning to reveal a Zayda human factors engineer device, a buckle clip and a HydroMARK [...] in formalin was 8:55 AM on 01/08/2024. Court Clerk sections are submitted as follows: A1 slice [...] and posterior margin Gross examination performed at [facility], [address] [place] [address], [place] [address] CLIA# [id number] [facility] 01/08/24 12:49 PM Performed By: #### S ####[facility] LABORATORYCLIA [id number] [address] [facility] LABCL[facility] [id number] [place] [address] [place] Basophils Auto (Bld) [#/Vol] on 01-07-2024 Basophils (Bld) [#/Vol] 0.05 10*3/uL <0.11 [facility] Basophils/100 WBC Auto (Bld) on 01-07-2024 Basophils/100 WBC (Bld) 0.8 % F [facility] Blood manual differential co mment interpretation narrativeon 01-07-2024 Manual differential comment David (Bld) [Interp] Auto [facility] CBC W Auto Differential pane l (Bld)on 01-07-2024 Basophils (Bld) [#/Vol] 0.05 10*3/uL Normal <0.11 [facility] Comment on above: Order Comment: Speci men Type: BLOOD SPECIMENOrdering Facility: [facility] Address: [address] [place] [address] Performed By: #### 5 7021-8 ####[facility] LABCLIA [id number] [place] [address] [place] Basophils/100 WBC (Bld) 0.8 % Normal C [facility] Comment on above: Order Comment: Speci men Type: BLOOD SPECIMENOrdering Facility: [facility] Address: [address] [place] [address] Performed By: #### 5 7021-8 ####[facility] LABCLIA [id number] [place] [address] [place] Differential cell count method Nom (Bld) Auto Normal [facility] Comment on above: Order Comment: Speci men Type: BLOOD SPECIMENOrdering Facility: [facility] Address: [address] [place] [address] Performed By: #### 5 7021-8 ####[facility] LABCLIA [id number] [place] [address] [place] Eosinophils (Bld) [#/Vol] 0.10 10*3/uL Normal <0.46 [facility] Comment on above: Order Comment: Speci men Type: BLOOD SPECIMENOrdering Facility: [facility] Address: [address] [place] [address] Performed By: #### 5 7021-8 ####[facility] LABCLIA [id number] [place] [address] [place] Eosinophils/100 WBC (Bld) 1.5 % Normal [facility] Comment on above: Order Comment: Speci men Type: BLOOD SPECIMENOrdering Facility: [facility] Address: [address] [place] [address] Performed By: #### 5 7021-8 ####[facility] LABCLIA [id number] [place] [address] [place] Erythrocyte distribution width (RBC) [Ratio] 11.9 % Normal 11.5-15.0 [facility] Comment on above: Order Comment: Speci men Type: BLOOD SPECIMENOrdering Facility: [facility] Address: [address] [place] [address] Performed By: #### 5 7021-8 ####[facility] LABCLIA [id number] [place] [address] [place] Hematocrit (Bld) [Volume fraction] 41.8 % Normal 36.0-46.0 [facility] Comment on above: Order Comment: Speci men Type: BLOOD SPECIMENOrdering Facility: [facility] Address: [address] [place] [address] Performed By: #### 5 7021-8 ####[facility] LABCLIA [id number] [place] [address] [place] Hemoglobin (Bld) [Mass/Vol] 14.1 g/dL Normal 11.5-15.5 [facility] Comment on above: Order Comment: Speci men Type: BLOOD SPECIMENOrdering Facility: [facility] Address: [address] [place] [address] Performed By: #### 5 7021-8 ####[facility] LABCLIA [id number] [place] [address] [place] Immature granulocytes (Bld) [#/Vol] 10*3/uL Normal <0.10 [facility] Comment on above: Order Comment: Speci men Type: BLOOD SPECIMENOrdering Facility: [facility] Address: [address] [place] [address] Performed By: #### 5 7021-8 ####[facility] LABCLIA [id number] [place] [address] [place] Immature granulocytes/100 WBC (Bld) 0.2 % Normal [facility] Comment on above: Order Comment: Speci men Type: BLOOD SPECIMENOrdering Facility: [facility] Address: [address] [place] [address] Performed By: #### 5 7021-8 ####[facility] LABCLIA [id number] [place] [address] [place] Lymphocytes (Bld) [#/Vol] 2.46 10*3/uL Normal 1.00-4.00 [facility] Comment on above: Order Comment: Speci men Type: BLOOD SPECIMENOrdering Facility: [facility] Address: [address] [place] [address] Performed By: #### 5 7021-8 ####[facility] LABCLIA [id number] [place] [address] [place] Lymphocytes/100 WBC (Bld) 36.9 % Normal [facility] Comment on above: Order Comment: Speci men Type: BLOOD SPECIMENOrdering Facility: [facility] Address: [address] [place] [address] Performed By: #### 5 7021-8 ####[facility] LABCLIA [id number] [place] [address] [place] MCH (RBC) [Entitic mass] 31.8 pg Normal 26.0-34.0 [facility] Comment on above: Order Comment: Speci men Type: BLOOD SPECIMENOrdering Facility: [facility] Address: [address] [place] [address] Performed By: #### 5 7021-8 ####[facility] LABCLIA [id number] [place] [address] [place] MCHC (RBC) [Mass/Vol] 33.7 g/dL Normal 30.5-36.0 [facility] Comment on above: Order Comment: Speci men Type: BLOOD SPECIMENOrdering Facility: [facility] Address: [address] [place] [address] Performed By: #### 5 7021-8 ####[facility] LABCLIA [id number] [place] [address] [place] MCV (RBC) [Entitic vol] 94.4 fL Normal 80.0-100.0 [facility] Comment on above: Order Comment: Speci men Type: BLOOD SPECIMENOrdering Facility: [facility] Address: [address] [place] [address] Performed By: #### 5 7021-8 ####[facility] LABCLIA [id number] [place] [address] [place] Monocytes (Bld) [#/Vol] 0.48 10*3/uL Normal <0.87 [facility] Comment on above: Order Comment: Speci men Type: BLOOD SPECIMENOrdering Facility: [facility] Address: [address] [place] [address] Performed By: #### 5 7021-8 ####[facility] LABCLIA [id number] [place] [address] [place] Monocytes/100 WBC (Bld) 7.2 % Normal [facility] Comment on above: Order Comment: Speci men Type: BLOOD SPECIMENOrdering Facility: [facility] Address: [address] [place] [address] Performed By: #### 5 7021-8 ####[facility] LABCLIA [id number] [place] [address] [place] Neutrophils (Bld) [#/Vol] 3.56 10*3/uL Normal 1.45-7.50 [facility] Comment on above: Order Comment: Speci men Type: BLOOD SPECIMENOrdering Facility: [facility] Address: [address] [place] [address] Performed By: #### 5 7021-8 ####[facility] LABCLIA [id number] [place] [address] [place] Neutrophils/100 WBC (Bld) 53.4 % Normal [facility] Comment on above: Order Comment: Speci men Type: BLOOD SPECIMENOrdering Facility: [facility] Address: [address] [place] [address] Performed By: #### 5 7021-8 ####[facility] LABCLIA [id number] [place] [address] [place] Nucleated RBC (Bld) [#/Vol] 10*3/uL Normal <0.01 [facility] Comment on above: Order Comment: Speci men Type: BLOOD SPECIMENOrdering Facility: [facility] Address: [address] [place] [address] Performed By: #### 5 7021-8 ####[facility] LABCLIA [id number] [place] [address] [place] Nucleated RBC/100 WBC (Bld) [Ratio] 0.0 /100 WBC Normal [facility] Comment on above: Order Comment: Speci men Type: BLOOD SPECIMENOrdering Facility: [facility] Address: [address] [place] [address] Performed By: #### 5 7021-8 ####[facility] LABCLIA [id number] [place] [address] [place] Platelet mean volume (Bld) [Entitic vol] 10.9 fL Normal 9.0-12.7 [facility] Comment on above: Order Comment: Speci men Type: BLOOD SPECIMENOrdering Facility: [facility] Address: [address] [place] [address] Performed By: #### 5 7021-8 ####[facility] LABCLIA [id number] [address] [address] [place] Platelets (Bld) [#/Vol] 211 10*3/uL Normal 150-400 [facility] Comment on above: Order Comment: Speci men Type: BLOOD SPECIMENOrdering Facility: [facility] Address: [address] [place] [address] Performed By: #### 5 7021-8 ####[facility] LABCLIA [id number] [place] [address] [place] RBC (Bld) [#/Vol] 4.43 10*6/uL Normal 3.90-5.20 [facility] Comment on above: Order Comment: Speci men Type: BLOOD SPECIMENOrdering Facility: [facility] Address: [address] [place] [address] Performed By: #### 5 7021-8 ####[facility] LABIA [id number] [place] [address] [place] WBC (Bld) [#/Vol] 6.66 10*3/uL Normal 3.70-11.00 [facility] Comment on above: Order Comment: Speci men Type: BLOOD SPECIMENOrdering Facility: [facility] Address: [address] [place] [address] Performed By: #### 5 7021-8 ####[facility] LABIA [id number] [place] [address] [place] Comprehensive metabolic 2000 panelon 01-07-2024 Albumin [Mass/Vol] 4.5 g/dL Normal 3.9-4.9 [facility] Comment on above: Order Comment: Speci men Type: BLOOD SPECIMENOrdering Facility: [facility] Address: [address] [place] [address] Performed By: #### 2 4323-8 ####[facility] LABCLIA [id number] [address] [id number] [address] [place] ALP [Catalytic activity/Vol] 49 U/L Normal 34-123 [facility] Comment on above: Order Comment: Speci men Type: BLOOD SPECIMENOrdering Facility: [facility] Address: [address] [place] [address] Performed By: #### 2 4323-8 ####[facility] LABCLIA [id number] [place] [address] [place] ALT [Catalytic activity/Vol] 21 U/L Normal 7-38 [facility] Comment on above: Order Comment: Speci men Type: BLOOD SPECIMENOrdering Facility: [facility] Address: [address] [place] [address] Performed By: #### 2 4323-8 ####[facility] LABCLIA [id number] [place] [address] [place] Anion gap [Moles/Vol] 21 mmol/L High 8-15 [facility] Comment on above: Order Comment: Speci men Type: BLOOD SPECIMENOrdering Facility: [facility] Address: [address] [place] [address] Performed By: #### 2 4323-8 ####[facility] LABCLIA [id number] [place] [address] [place] AST [Catalytic activity/Vol] 24 U/L Normal 13-35 [facility] Comment on above: Order Comment: Speci men Type: BLOOD SPECIMENOrdering Facility: [facility] Address: [address] [place] [address] Performed By: #### 2 4323-8 ####[facility] LABCLIA [id number] [place] [address] [place] Bilirubin [Mass/Vol] 0.7 mg/dL Normal 0.2-1.3 [facility] Comment on above: Order Comment: Speci men Type: BLOOD SPECIMENOrdering Facility: [facility] Address: [address] [place] [address] Performed By: #### 2 4323-8 ####[facility] LABCLIA [id number] [place] [address] [place] Calcium [Mass/Vol] 9.1 mg/dL Normal 8.5-10.2 [facility] Comment on above: Order Comment: Speci men Type: BLOOD SPECIMENOrdering Facility: [facility] Address: [address] [place] [address] Performed By: #### 2 4323-8 ####[facility] LABCLIA [id number] [place] [address] [place] Chloride [Moles/Vol] 104 mmol/L Normal 98-107 [facility] Comment on above: Order Comment: Speci men Type: BLOOD SPECIMENOrdering Facility: [facility] Address: [address] [place] [address] Performed By: #### 2 4323-8 ####[facility] LABCLIA [id number] [place] [address] [place] CO2 [Moles/Vol] 14 mmol/L Low 22-30 [facility] Comment on above: Order Comment: Speci men Type: BLOOD SPECIMENOrdering Facility: [facility] Address: [address] [place] [address] Performed By: #### 2 4323-8 ####[facility] LABCLIA [id number] [place] [address] [place] Creatinine [Mass/Vol] 0.83 mg/dL Normal 0.58-0.96 [facility] Comment on above: Order Comment: Speci men Type: BLOOD SPECIMENOrdering Facility: [facility] Address: [address] [place] [address] Performed By: #### 2 4323-8 ####[facility] LABCLIA [id number] [place] [address] [place] Creatinine and Glomerular filtration rate.predicted panel (S/P/Bld) 95 mL/min/1.73m??? Normal >=60 [facility] Comment on above: Order Comment: Sukumar bellamy Type: BLOOD SPECIMENOrdering Facility: [facility] Address: [address] [place] [address] Result Comment: Rosalia mated Glomerular Filtration Rate [...] actual GFR. Performed By: #### 2 4323-8 ####[facility] LABIA [id number] [place] [address] [place] Glucose [Mass/Vol] 85 mg/dL Normal 74-99 [facility] Comment on above: Order Comment: Sukumar bellamy Type: BLOOD SPECIMENOrdering Facility: [facility] Address: [address] [place] [address] Result Comment: The [place] Diabetes Association (ADA) provides guidance for cutoff [...] Standards of Medical Care in Diabetes 2016, [place] Diabetes Association. Diabetes Care. 2016.39(Suppl 1). Performed By: #### 2 4323-8 ####[facility] LABIA [id number] [place] [address] [place] Potassium [Moles/Vol] 4.1 mmol/L Normal 3.7-5.1 [facility] Comment on above: Order Comment: Speci men Type: BLOOD SPECIMENOrdering Facility: [facility] Address: [address] [place] [address] Performed By: #### 2 4323-8 ####[facility] LABCLIA [id number] [place] [address] [place] Protein [Mass/Vol] 7.1 g/dL Normal 6.3-8.0 [facility] Comment on above: Order Comment: Speci men Type: BLOOD SPECIMENOrdering Facility: [facility] Address: [address] [place] [address] Performed By: #### 2 4323-8 ####[facility] LABCLIA [id number] [place] [address] [place] Sodium [Moles/Vol] 139 mmol/L Normal 136-144 [facility] Comment on above: Order Comment: Speci men Type: BLOOD SPECIMENOrdering Facility: [facility] Address: [address] [place] [address] Performed By: #### 2 4323-8 ####[facility] LABCLIA [id number] [place] [address] [place] Urea nitrogen [Mass/Vol] 9 mg/dL Normal 7-21 [facility] Comment on above: Order Comment: Speci men Type: BLOOD SPECIMENOrdering Facility: [facility] Address: [address] [place] [address] Performed By: #### 2 4323-8 ####[facility] LABCLIA [id number] [place] [address] [place] Eosinophils/100 WBC Auto (Bl d)on 01-07-2024 Eosinophils/100 WBC (Bld) 1.5 % [facility] Erythrocyte distribution wid th Auto (RBC) [Ratio]on 01-07-2024 Erythrocyte distribution width (RBC) [Ratio] 11.9 % 11.5-15.0 [facility] Hematocrit Auto (Bld) [Volum e fraction]on 01-07-2024 Hematocrit (Bld) [Volume fraction] 41.8 % 36.0-46.0 [facility] Hemoglobin [Mass/volume] in Bloodon 01-07-2024 Hemoglobin (Bld) [Mass/Vol] 14.1 g/dL 11.5-15.5 [facility] Laboratory - Chemistry and C hemistry - challengeon 01-07-2024 Albumin [Mass/Vol] 4.5 g/dL 3.9-4.9 [facility] ALP [Catalytic activity/Vol] 49 U/L 34-123 [facility] ALT [Catalytic activity/Vol] 21 U/L 7-38 [facility] AST [Catalytic activity/Vol] 24 U/L 13-35 [facility] Bilirubin [Mass/Vol] 0.7 mg/dL 0.2-1.3 [facility] Calcium [Mass/Vol] 9.1 mg/dL 8.5-10.2 [facility] Chloride [Moles/Vol] 104 mmol/L 98-107 [facility] CO2 [Moles/Vol] 14 mmol/L Low 22-30 [facility] Creatinine [Mass/Vol] 0.83 mg/dL 0.58-0.96 [facility] Glucose [Mass/Vol] 85 mg/dL 74-99 [facility] Comment on above: The [place] Diabete s Association (ADA) provides guidance for [...] Standards of Medical Care in Diabetes 2016, [place] Diabetes Association. Diabetes Care. 2016.39(Suppl 1). Potassium [Moles/Vol] 4.1 mmol/L 3.7-5.1 [facility] Sodium [Moles/Vol] 139 mmol/L 136-144 [facility] Urea nitrogen [Mass/Vol] 9 mg/dL 7-21 [facility] Laboratory - Hematology and Cell countson 01-07-2024 Eosinophils (Bld) [#/Vol] 0.10 10*3/uL <0.46 [facility] Immature granulocytes/100 WBC (Bld) 0.2 % [facility] Leukocytes [#/volume] correc armaan for nucleated erythrocytes in Blood by Automated counon 01-07-2024 WBC corrected for nucl RBC Auto (Bld) [#/Vol] 6.66 k/uL 3.70-11.00 [facility] Lymphocytes Auto (Bld) [#/Vo l]on 01-07-2024 Lymphocytes (Bld) [#/Vol] 2.46 10*3/uL 1.00-4.00 [facility] Lymphocytes/100 WBC Auto (Bl d)on 01-07-2024 Lymphocytes/100 WBC (Bld) 36.9 % [facility] DIAGNOSTIC RTon 01-07-20 24 [facility] DIAGNOSTIC RT * * *Final Report* * * DATE OF EXAM: Jan 07 2024 10:19AM [facility] [place] [facility] DIAGNOSTIC RT / PROCEDURE REASON: Breast fibroadenoma, right * * * * Physician Interpretation * * * * RESULT: [place] [address] HISTORY: Patient is 33 years old and [...] breast tissue. Interpreting Radiologist: Yamila August M.D. Sagger Filler: BISHOP Transcribe Date/Time: Jan 07 2024 9:53A Dictated by : CARLOS OLMEDO DO This examination was interpreted and the report reviewed and electronically signed by: YAMILA AUGUST MD on Jan 07 2024 10:47AM EST [id number] Normal [facility] US LOC BREAST RTon 01-06 [facility] US LOC BREAST RT * * *Final Report* * * DATE OF EXAM: Jan 07 2024 10:12AM [facility] [place] [facility] US LOC BREAST RT / PROCEDURE REASON: Breast fibroadenoma, right * * * * Physician Interpretation * * * * RESULT: [place] [address] HISTORY: 33 year old patient presents for [...] were present throughout the entire procedure. The personal injury legal assistant radiologist was Carlos Olmedo DO. The personal injury legal assistant radiologist administered local anesthesia and placed [...] targeted area. Reflector placement/activation was verified with Pneumatic Tube Fitter Check following the procedure. IMPRESSION: Site 1: Successful infrared activated electromagnetic reflector device placement for a mass in the right breast at 8 o'clock posterior depth 4-5 cm from the nipple with no apparent complications. A specimen radiograph is recommended. The specimen radiograph should include the Pneumatic Tube Fitter reflector, the [employer]romark open coil clip, and additional biopsy marking clip. Interpreting Radiologist: Yamila August M.D. Sagger Filler: BISHOP Transcribe Date/Time: Jan 07 2024 9:50A Dictated by : CARLOS OLMEDO, DO This examination was interpreted and the report reviewed and electronically signed by: YAMILA AUGUST MD on Jan 07 2024 10:46AM EST [id number] Normal [facility] MCH Auto (RBC) [Entitic mass ]on 01-07-2024 MCH (RBC) [Entitic mass] 31.8 pg 26.0-34.0 [facility] MCHC Auto (RBC) [Mass/Vol]on 01-07-2024 MCHC (RBC) [Mass/Vol] 33.7 g/dL 30.5-36.0 [facility] MCV Auto (RBC) [Entitic vol] on 01-07-2024 MCV (RBC) [Entitic vol] 94.4 fL 80.0-100.0 F [facility] MG Breast - right Diagnostic for [...] breast tissue. Interpreting Radiologist: Yamila August M.D. Sagger Filler: BISHOP Transcribe Date/Time: Jan 07 2024 9:53A Dictated by : CARLOS OLMEDO DO This examination was interpreted and the report reviewed and electronically signed by: YAMILA AUGUST MD on Jan 07 2024 10:47AM [facility] DIVISION OF RADIOLOGY * * *Final Report* * * DATE OF EXAM: Jan 07 2024 10:19AM [facility] [place] - [facility] DIAGNOSTIC RT / PROCEDURE REASON: Breast fibroadenoma, right * * * * Physician Interpretation * * * * RESULT: [place] [address] HISTORY: Patient is 33 years old and [...] obscure small masses. DIVISION OF RADIOLOGY Provider, [facility] - 01/07/2024 * * *Final Report* * * DATE OF EXAM: Jan 07 2024 10:19AM [facility] [place] - [facility] DIAGNOSTIC RT / PROCEDURE REASON: Breast fibroadenoma, right * * * * Physician Interpretation * * * * RESULT: [facility] [address] [facility] [address] HISTORY: Patient is 33 years old and [...] breast tissue. Interpreting Radiologist: Yamila August M.D. Sagger Filler: BISHOP Transcribe Date/Time: Jan 07 2024 9:53A Dictated by : CARLOS OLMEDO DO This examination was interpreted and the report reviewed and electronically signed by: YAMILA AUGUST MD on Jan 07 2024 10:47AM EST [facility] Radiology Study observation (narrative) [facility] Monocytes Auto (Bld) [#/Vol] on 01-07-2024 Monocytes (Bld) [#/Vol] 0.48 10*3/uL <0.87 [facility] Monocytes/100 WBC Auto (Bld) on 01-07-2024 Monocytes/100 WBC (Bld) 7.2 % [facility] Neutrophils Auto (Bld) [#/Vo l]on 01-07-2024 Neutrophils (Bld) [#/Vol] 3.56 10*3/uL 1.45-7.50 [facility] Neutrophils/100 WBC Auto (Bl d)on 01-07-2024 Neutrophils/100 WBC (Bld) 53.4 % [facility] No Panel InformationOrdered By: Ccf Provider on 01-07-2024 [facility] No Panel Informationon 01-06 Estimated GFR (CKD-EPI) 95 mL/min/1.73m??? >=60 [facility] Comment on above: Estimated Glomerular Filtration Rate [...] Immature Granulocyte # (Auto) <0.03 k/uL <0.10 [facility] Nucleated RBC Auto (Bld) [#/ Vol]on 01-07-2024 Nucleated RBC (Bld) [#/Vol] 10*3/uL <0.01 [facility] Nucleated erythrocytes [Pres ence] in Blood by Automated counton 01-07-2024 Nucleated RBC Auto Ql (Bld) 0.0 /100{WBC} [facility] PT EDon 01-07-2024 PT ED HNO ID: [id number] Author: MASHA JOHNSTON Tech Service: ? Author [...] instructions REFERRAL (RECOMMENDATION): None Normal [facility] Platelet mean volume Auto (B ld) [Entitic vol]on 01-07-2024 Platelet mean volume (Bld) [Entitic vol] 10.9 fL 9.0-12.7 [facility] Platelets Auto (Bld) [#/Vol] on 01-07-2024 Platelets (Bld) [#/Vol] 211 10*3/uL 150-400 [facility] Protein [Mass/volume] in Ser um or Plasmaon 01-07-2024 Protein [Mass/Vol] 7.1 g/dL 6.3-8.0 [facility] RBC Auto (Bld) [#/Vol]on RBC (Bld) [#/Vol] 4.43 10*6/uL 3.90-5.20 [facility] Serum or plasma anion gap de terminationon 01-07-2024 Anion gap [Moles/Vol] 21 mmol/L High 8-15 [facility] US Guidance for localization of Breast - righton 01-07-2024 IMPRESSION: Site 1: Successful infrared activated electromagnetic reflector device placement for a mass in the right breast at 8 o'clock posterior depth 4-5 cm from the nipple with no apparent complications. A specimen radiograph is recommended. The specimen radiograph should include the Pneumatic Tube Fitter reflector, the Hydromark open coil clip, and additional biopsy marking clip. Interpreting Radiologist: Yamila August M.D. Sagger Filler: BISHOP Transcribe Date/Time: Jan 07 2024 9:50A Dictated by : CARLOS OLMEDO, This examination was interpreted and the report reviewed and electronically signed by: YAMILA AUGUST MD on Jan 07 2024 10:46AM [facility] DIVISION OF RADIOLOGY * * *Final Report* * * DATE OF EXAM: Jan 07 2024 10:12AM [facility] [place] [facility] LOC BREAST RT / PROCEDURE REASON: Breast fibroadenoma, right * * * * Physician Interpretation * * * * RESULT: [address] [place] [address] HISTORY: 33 year old patient presents for [...] were present throughout the entire procedure. The personal injury legal assistant radiologist was Carlos Olmedo DO. The personal injury legal assistant radiologist administered local anesthesia and placed [...] targeted area. Reflector placement/activation was verified with Pneumatic Tube Fitter Check following the procedure. DIVISION OF RADIOLOGY Provider, [facility] - 01/07/2024 * * *Final Report* * * DATE OF EXAM: Jan 07 2024 10:12AM [facility] 0600 - [facility] LOC BREAST RT / PROCEDURE REASON: Breast fibroadenoma, right * * * * Physician Interpretation * * * * RESULT: [facility] [address] [facility] [address] [place] [id number] HISTORY: 33 year old patient presents for [...] were present throughout the entire procedure. The personal injury legal assistant radiologist was Carlos Olmedo DO. The personal injury legal assistant radiologist administered local anesthesia and placed [...] targeted area. Reflector placement/activation was verified with Pneumatic Tube Fitter Check following the procedure. IMPRESSION IMPRESSION: Site 1: Successful infrared activated electromagnetic reflector device placement for a mass in the right breast at 8 o'clock posterior depth 4-5 cm from the nipple with no apparent complications. A specimen radiograph is recommended. The specimen radiograph should include the Pneumatic Tube Fitter reflector, the Hydromark open coil clip, and additional biopsy marking clip. Interpreting Radiologist: Yamila August M.D. Sagger Filler: BISHOP Transcribe Date/Time: Jan 07 2024 9:50A Dictated by : CARLOS OLMEDO, DO This examination was interpreted and the report reviewed and electronically signed by: YAMILA AUGUST MD on Jan 07 2024 10:46AM EST [facility] Radiology Study observation (narrative) [facility] 01-06-2024 CNPN Telephone (PANCafeMomI) ----- SULLY ENRIQUEZ ([id number]) 1990 F Date Time Provider Department 01/06/24 [...] Encounter Status:Closed by CAMILA RUSSO on 01/06/24 [facility] HISTORY PHYSICALon HISTORY PHYSICAL HNO ID: [id number] Author: CAMILA RUSSO PA-C Service: ? Author Type: Physician Preschool Program Director Type: H&P Filed: 01/06/2024 14:18 Note Text: [...] surgeon This is a virtual visit using Face-Mehart video visit. It required patient-provider interaction for [...] virtual visit. The visit was conducted using RedT video visit. It required patient-provider interaction for the medical decision making as documented below. I have communicated my name and active licensure. The patient's identity and physical location were verified at the time of this visit. Either the patient or their legal printing supplies sales representative has been informed of the risks and benefits of and alternatives to treatment through a remote evaluation and consents to proceed with the evaluation re (more content not included)... Normal [facility] Kt 01-02-2024 [facility] Telephone ([facility]) ----- ZOESULLY Cullen ([id number]) 1990 F Date Time Provider Department 01/02/24 [...] Encounter Status:Closed by SALINA DICKINSON on 01/02/24 [facility] HISTORY PHYSICALon HISTORY PHYSICAL HNO ID: [id number] Author: SALINA DICKINSON PA-C Service: ? Author Type: Physician Preschool Program Director Type: H&P Filed: 01/02/2024 11:27 Note Text: [...] reschedule PACC visit. Salina Dickinson PA-C 01/02/2024 [facility] CNPMagaly 12-31-2023 [facility] Telephone (PCMT) ----- SULLY ENRIQUEZ ([id number]) 1990 F Date Time Provider Department 12/31/23 [facility] During your visit today, we recorded the following information about you: Tamika Camacho APRN.CNP 12/31/2023 3:06 PM Signed Patient was scheduled for virtual PACC appt at 1500 today. Patient did not check in for visit. Called patient at 1505, stated they forgot and needed to reschedule This message routed to PACC schedulers to contact patient to reschedule PACC appt. Tamika Camacho APRN.CHEMICAL LAB SUPERVISOR Allergies As of Date: 12/31/2023 Noted Allergy [...] TAMIKA CAMACHO on 12/31/23 Normal [facility] Bacteria [Presence] in Urine by AutomatedOrdered By: Mario Glasgow on 12-26-2023 Bacteria Auto Ql (U) Rare [HPF] None Seen [facility] Bilirubin Test strip Ql (U)O rdered By: Mario Glasgow on 12-26-2023 Bilirubin Ql (U) Negative Negative [facility] CNOVon 12-26-2023 CNOV Office Visit (BRCRMN ) ----- SULLY ENRIQUEZ ([id number]) 1990 F Date Time Provider Department 12/26/23 1:00 PM ADELE SUTTON BRCRMN During your visit today, we recorded the following information about you: Weight Height 105.2 kg 1.651 m Adele Sutton MD 12/26/2023 3:52 PM Signed [facility] [place] Department of General Surgery [facility] REASON for TODAY'S VISIT: Patient presents with: New Patient REFERRAL: Referring Provider: Franchesca Man PCP: Keli Strickland NP, EXAMINATION SCORER My clinic note and plan will be [...] - Self palpated RIGHT breast mass. 06/25/23 ([facility]) - diagnostic bilateral mammogram/US - diffuse heterogenous density. In the right breast at 8:00 approximately 4 to 5 cm from the nipple, is a hypoechoic avascular area that measures 2.0 x 1.6 x 1.1 cm. In the right upper outer quadrant of the breast at 2.8 x 1.0 x 2.8 cm lymph node is seen. There is no cortical thickening. 07/07/23 ([facility] - US guided CNB 8:00 4-5 CMFN 2 x 1 x 1.7 cm mass with unspecified clip placement - fibrocystic change. Concordant. 08/07/23 ([facility]) - RIGHT breast US - 8:00 4-5 CMFN 2 x 0.9 x 1.3 cm mass. 9:00 9 CMFN, no US abnormality to correlate with area of pain. 09/08/23 ([facility]) - Right breast at 8 o'clock, 4-5 cm from nipple, ultrasound-guided core biopsy with coil clip placement: Fibroadenoma.Concordant. 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 Stays [...] (more content not included)... Normal [facility] CNPNon 12-26-2023 CNPN Telephone (BRCRMN) ----- SULLY ENRIQUEZ ([id number]) 1990 F Date Time Provider Department 12/26/23 DAELE SUTTON BRCRNJ During your visit today, we recorded the following information about you: Kobe Wallis 12/26/2023 3:25 PM Signed LOCALIZATION IMAGE REVIEW (Please do NOT submit until entire workup complete) (if > 3 reflectors to be placed in one breast, please review with radiologist) Sully Enriquez [id number] 1990 WORK- UP COMPLETE? Yes Order Placed [...] Mtz Tishka 01/07/2024 8:53 AM Signed ZAYDA human factors engineer placement by BOTH (coil + unspecified) clips [...] EDGARD COLE on 12/29/23 Normal [facility] Color of Urine by AutoOrdere d By: Mario Glasgow on 12-26-2023 Color (U) Light-yellow Yellow [facility] Comment on above: Performed By: #### A DDONUAPLUS, CUU #### [address] Dipstick and Microscopicon 0 12-26-2023 Bacteria,Urine Rare Normal None Seen [facility] Comment on above: Performed By: #### A DDONUAPLUS, CUU #### [place] [address] [place] Bilirubin,Urine Negative Normal Negative [facility] Comment on above: Performed By: #### A DDONUAPLUS, CUU #### [place] [address] [place] Budding Yeast,Urine 2+ High None Seen [facility] Comment on above: Result Comment: PERF ORMED BY: [place] [address] PATHOLOGIST C++ PROFESSOR LEV HERNÁNDEZ M.D. Performed By: #### A DDONUAPLUS, CUU #### [address] Glucose Ql (U) Normal Normal Normal [facility] Comment on above: Performed By: #### A DDONUAPLUS, CUU #### [address] Hyaline Casts,Urine None Normal 0-8 [facility] Comment on above: Performed By: #### A DDONUAPLUS, CUU #### [address] Mucus,Urine Rare Normal [facility] Comment on above: Performed By: #### A DDONUAPLUS, CUU #### [address] Nitrite,Urine Negative Normal Negative [facility] Comment on above: Performed By: #### A DDONUAPLUS, CUU #### [address] Occult Blood,Urine 1+ High Negative [facility] Comment on above: Result Comment: PERF ORMED BY: [place] [address] PATHOLOGIST C++ PROFESSOR LEV HERNÁNDEZ M.D. Performed By: #### A DDONUAPLUS, CUU #### [address] Protein,Urine Negative Normal Negative [facility] Comment on above: Performed By: #### A DDONUAPLUS, CUU #### [address] RBC,Urine 10-19 High 0-4 [facility] Comment on above: Performed By: #### A DDONUAPLUS, CUU #### [address] Specificy [place],Urine 1.011 Normal 1.001-1.030 [facility] Comment on above: Performed By: #### A DDONUAPLUS, CUU #### [place] [address] [place] Squamous Epithelial Cell,Urine 1-2 Normal 0-2 [facility] Comment on above: Performed By: #### A DDONUAPLUS, CUU #### [facility] [address] Urobilinogen,Urine Normal Normal Normal [facility] Comment on above: Performed By: #### A DDONUAPLUS, CUU #### [facility] [address] WBC CLUMP, Urine Many High None Seen [facility] Comment on above: Performed By: #### A DDONUAPLUS, CUU #### [facility] [address] WBC,Urine Innumerable High 0-4 [facility] Comment on above: Performed By: #### A DDONUAPLUS, CUU #### [facility] [address] Epithelial cells.squamous [# /area] in Urine sediment by Automated countOrdered By: Mario Glasgow on 12-26-2023 Epithelial cells.squamous Auto (Urine sed) [#/Area] 1-2 [HPF] 0-2 [facility] Erythrocytes [#/area] in Uri ne sediment by Automated countOrdered By: Mario Glasgow on 12-26-2023 RBC Auto (Urine sed) [#/Area] 10-19 [HPF] High 0-4 [facility] Glucose [Mass/volume] in Uri ne by Test stripOrdered By: Mario Glasgow on 12-26-2023 Glucose Test strip (U) [Mass/Vol] Normal mg/dL Normal [facility] HISTORY PHYSICALon HISTORY PHYSICAL HNO ID: [id number] Author: ADELE SUTTON MD Service: ? Author Type: Physician Type: H&P Filed: 12/26/2023 15:52 Note Text: [facility] [place] Department of General Surgery [facility] REASON for TODAY'S VISIT: Patient presents with: New Patient REFERRAL: Referring Provider: Franchesca Man PCP: Keli Strickland NP, EXAMINATION SCORER My clinic note and plan will be [...] - Self palpated RIGHT breast mass. 06/25/23 ([facility]) - diagnostic bilateral mammogram/US - diffuse heterogenous density. In the right breast at 8:00 approximately 4 to 5 cm from the nipple, is a hypoechoic avascular area that measures 2.0 x 1.6 x 1.1 cm. In the right upper outer quadrant of the breast at 2.8 x 1.0 x 2.8 cm lymph node is seen. There is no cortical thickening. 07/07/23 ([facility] - US guided CNB 8:00 4-5 CMFN [...] with coil clip placement: Fibroadenoma.Concordant. 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 Stays [...] (more content not included)... Normal [facility] Hemoglobin Test strip Ql (U) Ordered By: Mario Glasgow on 12-26-2023 Hemoglobin Ql (U) 1+ High Negative [facility] Hyaline casts [#/area] in Ur ine sediment by Automated countOrdered By: Mario Glasgow on 12-26-2023 Hyaline casts Auto (Urine sed) [#/Area] None [LPF] 0-8 [facility] Ketones [Presence] in Urine by Test stripOrdered By: Mario Glasgow on 12-26-2023 Ketones Ql (U) Negative Negative [facility] Comment on above: Performed By: #### A DDONUAPLUS, CUU #### [facility] [address] Laboratory - Chemistry and C hemistry - challengeon 12-26-2023 Bilirubin Ql (U) Negative [facility] Glucose (U) [Mass/Vol] Negative [facility] Ketones Ql (U) Negative [facility] pH (U) 5.5 [pH] [facility] Specific gravity (U) [Rel density] 1.010 [facility] Urobilinogen (U) [Mass/Vol] 0.2 mg/dL [facility] Laboratory - Microbiology an d Antimicrobial susceptibilityOrdered By: Mario Glasgow on 12-26-2023 Bacteria identified Cx Nom (U) Escherichia coli Abnormal [facility] Laboratory - Specimen inform ationon 12-26-2023 Appearance (U) cloudy [facility] Color (U) yellow [facility] Laboratory - Urinalysison Leukocyte esterase Test strip Ql (U) small [facility] Nitrite Ql (U) Negative [facility] Protein Ql (U) Negative [facility] Leukocyte clumps [Presence] in Urine by AutomatedOrdered By: Mario Glasgow on 12-26-2023 Leukocyte clumps Auto Ql (U) Many [LPF] High None Seen [facility] Leukocyte esterase [Presence ] in Urine by Test stripOrdered By: Mario Glasgow on 12-26-2023 Leukocyte esterase Test strip Ql (U) 4+ High Negative [facility] Comment on above: Performed By: #### A DDEDITHUATOMÁS, CUU #### [facility] [address] Leukocytes [#/area] in Urine sediment by Automated countOrdered By: Mario Glasgow on 12-26-2023 WBC Auto (Urine sed) [#/Area] Innumerable [HPF] High 0-4 [facility] Mucus [Presence] in Urine by AutomatedOrdered By: Mario Glasgow on 12-26-2023 Mucus Auto Ql (U) Rare [LPF] [facility] Nitrite Test strip Ql (U)Ord ered By: Mario Glasgow on 12-26-2023 Nitrite Ql (U) Negative Negative [facility] No Panel Informationon 12-25 Urine Occult Blood Negative [facility] Protein Test strip (U) [Mass /Vol]Ordered By: Mario Glasgow on 12-26-2023 Protein (U) [Mass/Vol] Negative Negative [facility] Specific gravity Test strip (U) [Rel density]Ordered By: Mario Glasgow on 12-26-2023 Specific gravity (U) [Rel density] 1.011 1.001-1.030 [facility] Urine Cultureon 12-26-2023 Bacteria identified Cx Nom (U) ORGANISM: Escherichia coli (O:ESCCOL) [place] Count 75,000 Aerobic AUBREY Charge (NMIC56) SUSCEPTIBILITY [...] RESISTANT TO ALL B-LACTAM DRUGS. PERFORMED BY: [place] [address] PATHOLOGIST C++ PROFESSOR LEV HERNÁNDEZ M.D. Normal [facility] Comment on above: Performed By: #### A JOSSUE, CUU ####[address] Urine appearanceOrdered By: Mario Glasgow on 12-26-2023 Appearance (U) Cloudy Abnormal Clear [facility] Comment on above: Performed By: #### A JOSSUE, CUU #### [address] Urobilinogen Test strip (U) [Mass/Vol]Ordered By: Mario Glasgow on 12-26-2023 Urobilinogen (U) [Mass/Vol] Normal mg/dL Normal [facility] Yeast.budding [Presence] in Urine by Computer assisted methodOrdered By: Mario Glasgow on 12-26-2023 Yeast.budding Computer assisted Ql (U) 2+ [HPF] High None Seen [facility] pH of Urine by Test stripOrd ered By: Mario Glasgow on 12-26-2023 pH (U) 6.0 [pH] 5.0-9.0 [facility] Comment on above: Performed By: #### A DDONUAPLUS, CUU #### [address] Basophils Auto (Bld) [#/Vol] on 12-17-2023 Basophils (Bld) [#/Vol] 0.0 10 3/uL 0.0-0.1 [facility] Basophils/100 WBC Auto (Bld) on 12-17-2023 Basophils/100 WBC (Bld) 0.4 % 0.2-2.0 F [facility] CONSULTon 12-17-2023 CONSULT SUBJECTIVE: Chief complaint: [...] Coordination: Finge (more content not included)... Normal [facility] EDNURSon 12-17-2023 EDNURS Call light, gown, wa rm blanket, pillow and pad provided. Spouse at bedside. Pts back appears mottled, spouse says it is from heating pad. Lead confirms Normal [facility] EDNURS Mode of arrival (squ ad #, walk in, police, etc): walk in w spouse Chief complaint(s): back pain, nausea,urinary incontinence Arrival Note (brief scenario, treatment EVENT PROMOTIONS COORDINATOR, etc): pt by private auto from [place] [facility] for low back pain continuous with worsening past 2 weeks no injury. 8/10 and sharp. Urinary incontinence started yesterday along with nausea and 2 episodes of vomiting. Pt denies numbness or tingling. Took zanaflex at home which helped her sleep. Had T3 at [place] which helped with the pain. Arrives of 20 g lock in left arm. Pt comes with paperwork and lab results. Pt denies having this pain previously Normal [facility] EDPROVon 12-17-2023 EDPROV HPI Chief Complaint Patient presents with ??? Back Pain X 2 weeks ??? Nausea With vomit x 2. Onset was yesterday. ??? Urinary Incontinence Onset yesterday Pt transferred here by EMS from [facility] accepted by ETHAN Olivas who is on for spine. The concern is for cauda equina. Pt with evaluation for back pain. Pt with evaluation at [place] 1-2 weeks prior. Pt with chiropractor care [...] hx hyst in past. 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 CBC normal. ESR normal [...] of plan of care/testing this am. [CS] [address] Olivas about this consult. He requests an MRI for this pt. I spoke with radiologist Dr Sanchez at [facility] to get approval for MRI to get called in. I spoke with monogram technician to get veterinary technician instructor called in for this imaging. [CS] 0274 Pt complaining about pain and nausea. Rn to reconcile meds. Pt with allergy to toradol. Pt with multiple narcotic and antispasm meds on home list. [CS] 7089 PT back from MRI. Pt with norco at home that hasn't taken and has nausea again now. Pt got 4 mg zofran at outside hospital. Will repeat this and then dose norco while waiting on MRI report. [CS] 3321 Pt now wanting to leave AMA. Prelim for MRI in for this pt. I spoke with Dr Olivas about this pt. He asks that I talk with pt about being seen by his PA/EXAMINATION SCORER Jyotsna in about 10 minutes and he is on way to hospital and will review MRI imaging. [CS] 0654 I was back to talk with pt and visitor about my conversation with Dr Olivas. Male reports taht I thought that we were just coming here for the MRI and they were going to read it back in [place] . I explained process of transfer and [...] Acute ex (more content not included)... Normal [facility] Eosinophils/100 WBC Auto (Bl d)on 12-17-2023 Eosinophils/100 WBC (Bld) 1.2 % 0.9-7.0 [facility] Erythrocyte distribution wid th Auto (RBC) [Ratio]on 12-17-2023 Erythrocyte distribution width (RBC) [Ratio] 11.9 % 11.0-15.0 [facility] Estimated glomerular filtrat ion rate (GFR) non- Americanon 12-17-2023 GFR/1.73 sq M.predicted among non-blacks MDRD (S/P/Bld) [Vol rate/Area] mL/min/{1.73_m2} >=60 [facility] Hematocrit Auto (Bld) [Volum e fraction]on 12-17-2023 Hematocrit (Bld) [Volume fraction] 42.3 % 36.0-48.0 [facility] Hemoglobin [Mass/volume] in Bloodon 12-17-2023 Hemoglobin (Bld) [Mass/Vol] 14.4 g/dL 12.0-16.0 [facility] Laboratory - Chemistry and C hemistry - challengeon 12-17-2023 Calcium [Mass/Vol] 8.9 mg/dL 8.5-10.1 [facility] [facility] Chloride [Moles/Vol] 103 mmol/L 98-107 [facility] CO2 [Moles/Vol] 26.5 mmol/L 21.0-32.0 [facility] Creatinine [Mass/Vol] 0.94 mg/dL 0.55-1.02 [facility] GFR/1.73 sq M.predicted MDRD (S/P/Bld) [Vol rate/Area] mL/min/{1.73_m2} >=60 [facility] Glucose [Mass/Vol] 95 mg/dL 74-106 [facility] Potassium [Moles/Vol] 3.5 mmol/L 3.5-5.1 [facility] Sodium [Moles/Vol] 139 mmol/L 136-145 [facility] Urea nitrogen [Mass/Vol] 9.0 mg/dL 7.0-18.0 [facility] Urea nitrogen/Creatinine [Mass ratio] 9.6 mg/mg [facility] Laboratory - Hematology and Cell countson 12-17-2023 ESR (Bld) [Velocity] 17 mm/h <=20 [facility] Immature granulocytes/100 WBC (Bld) 0.3 % 0.0-0.5 [facility] Leukocytes [#/volume] correc armaan for nucleated erythrocytes in Blood by Automated counon 12-17-2023 WBC corrected for nucl RBC Auto (Bld) [#/Vol] 6.7 10 3/uL 4.0-11.0 [facility] Lymphocytes Auto (Bld) [#/Vo l]on 12-17-2023 Lymphocytes (Bld) [#/Vol] 2.7 10 3/uL 1.2-3.8 [facility] Lymphocytes/100 WBC Auto (Bl d)on 12-17-2023 Lymphocytes/100 WBC (Bld) 40.7 % 20.5-60.0 [facility] MCH Auto (RBC) [Entitic mass ]on 12-17-2023 MCH (RBC) [Entitic mass] 32.4 pg 26.7-34.0 [facility] MCHC Auto (RBC) [Mass/Vol]on 12-17-2023 MCHC (RBC) [Mass/Vol] 34.0 g/dL 29.9-35.2 [facility] MCV Auto (RBC) [Entitic vol] on 12-17-2023 MCV (RBC) [Entitic vol] 95.3 fL 81.0-99.0 F [facility] MR LUMBAR SPINE W AND WO [...] report. Electronically signed: Robert Rivera MD. Normal [facility] Monocytes Auto (Bld) [#/Vol] on 12-17-2023 Monocytes (Bld) [#/Vol] 0.5 10 3/uL 0.3-0.8 [facility] Monocytes/100 WBC Auto (Bld) on 12-17-2023 Monocytes/100 WBC (Bld) 7.2 % 1.7-12.0 F [facility] Neutrophils Auto (Bld) [#/Vo l]on 12-17-2023 Neutrophils (Bld) [#/Vol] 3.4 10 3/uL 1.4-6.5 [facility] Neutrophils/100 WBC Auto (Bl d)on 12-17-2023 Neutrophils/100 WBC (Bld) 50.2 % 43.0-75.0 [facility] No Panel Informationon 12-16 C-Reactive Protein, Quantitative <0.50 mg/dL <=0.50 [facility] Eosinophils # (Auto) 0.1 10 3/uL 0.0-0.7 [facility] Immature Granulocyte # (Auto) 0.02 10 3/uL 0.00-0.03 [facility] Platelet mean volume Auto (B ld) [Entitic vol]on 12-17-2023 Platelet mean volume (Bld) [Entitic vol] 10.7 fL 9.5-13.5 [facility] Platelets Auto (Bld) [#/Vol] on 12-17-2023 Platelets (Bld) [#/Vol] 218 10 3/uL 150-450 [facility] RBC Auto (Bld) [#/Vol]on RBC (Bld) [#/Vol] 4.44 10 6/uL 4.20-5.40 [facility] Serum or plasma anion gap de terminationon 12-17-2023 Anion gap [Moles/Vol] 13.0 mmol/L [facility] URINALYSIS WITH REFLEX CULTU REon 12-17-2023 BILIRUBIN, TOTAL PRESENCE IN URINE Negative Normal Negative [facility] Comment on above: Order Comment: Micro scopics not performed on urines with negative chemical reactions unless requested on original order. Performed By: #### L [id number] #### [facility] (BEAKER) [address] [place] [address] Clarity (U) Slightly Cloudy Abnormal Clear [facility] Comment on above: Order Comment: Micro scopics not performed on urines with negative chemical reactions unless requested on original order. Performed By: #### L [id number] #### [facility] ([facility]) [address] [place] [address] Color (U) Yellow Normal Yellow [facility] Comment on above: Order Comment: Micro scopics not performed on urines with negative chemical reactions unless requested on original order. Performed By: #### L [id number] #### [facility] ([facility]ER) [address] [place] [address] Glucose (U) [Mass/Vol] Negative Normal Negative Un [facility] Comment on above: Order Comment: Micro scopics not performed on urines with negative chemical reactions unless requested on original order. Performed By: #### L [id number] #### [facility] ([facility]) [address] [place] [address] HEMOGLOBIN PRESENCE IN URINE Negative Normal Negative [facility] Comment on above: Order Comment: Micro scopics not performed on urines with negative chemical reactions unless requested on original order. Performed By: #### L [id number] #### [facility] ([facility]) [address] [place] [address] Ketones Ql (U) Negative Normal Negative [facility] Comment on above: Order Comment: Micro scopics not performed on urines with negative chemical reactions unless requested on original order. Performed By: #### L [id number] #### [facility] ([facility]) [address] [place] [address] LEUKOCYTE ESTERASE PRESENCE IN URINE BY TEST STRIP Negative Normal Negative [facility] Comment on above: Order Comment: Micro scopics not performed on urines with negative chemical reactions unless requested on original order. Performed By: #### L [id number] #### [facility] ([facility]) [address] [place] [address] NITRITE PRESENCE IN URINE Negative Normal Negative [facility] Comment on above: Order Comment: Micro scopics not performed on urines with negative chemical reactions unless requested on original order. Performed By: #### L [id number] #### [facility] ([facility]) [address] [place] [address] pH (U) 5.0 [pH] Normal 5.0-8.0 [facility] Comment on above: Order Comment: Micro scopics not performed on urines with negative chemical reactions unless requested on original order. Performed By: #### L [id number] #### [facility] ([facility]) [address] [place] [address] Protein (U) [Mass/Vol] Negative Normal Negative [facility] Comment on above: Order Comment: Micro scopics not performed on urines with negative chemical reactions unless requested on original order. Performed By: #### L [id number] #### [facility] ([facility]) [address] [place] [address] Specific gravity (U) [Rel density] 1.016 Normal 1.015-1.020 [facility] Comment on above: Order Comment: Micro scopics not performed on urines with negative chemical reactions unless requested on original order. Performed By: #### L [id number] #### [facility] (ELENA) [address] [place] [address] Kt 09-12-2023 CNPN Telephone (BRCRMN) ----- SULLY ENRIQUEZ ([id number]) 1990 F Date Time Provider Department 09/12/23 FRANCHESCA MAN [facility] During your visit today, we [...] Dense breasts [R92.30] Order(s):CONSULT TO GENERAL SURGERY [7392] Order #: [id number]: 1 FUTURE Prescriptions as of 09/12/2023 - ALPRAZolam (XANAX) 1 mg tablet Take 1 mg by mouth twice daily as needed. Problem List As Of Date 09/12/2023 Noted Resolved Seizure (HCC) [R56.9] 03/06/2021 Headaches [R51.9] 03/07/2021 Encounter Status:Closed by FRANCHESCA MAN on 09/12/23 [facility] Kt 09-11-2023 [facility] ----- SULLY ENRIQUEZ ([id number]) 1990 F Date Time Provider Department 09/11/23 [facility]CHESCA MAN [facility] During your visit today, we [...] Encounter Status:Closed by FRANCHESCA MAN on 09/11/23 [facility] CNPN Telephone (RADMN) ----- SULLY ENRIQUEZ ([id number]) 1990 F Date Time Provider Department 09/11/23 [...] Encounter Status:Closed by LOU MILLER on 09/11/23 [facility] DBT Breast - right diagnosti c for implanton 09-08-2023 * * *Final Report* * * DATE OF EXAM: Sep 08 2023 2:52PM W 0629 - [facility] MARCO W DOMINIC RT / PROCEDURE REASON: multiple diagnoses * * * * Physician Interpretation * * * * RESULT: #[id number] - [facility] MARCO [place] DOMINIC RT #[id number] - [facility] US BIOPSY BREAST RT ULTRASOUND GUIDED [...] Almanzar performed the entire procedure without an personal injury legal assistant. Audible Time Out Time: 1420 Procedure [...] for pathological analysis. DIVISION OF RADIOLOGY Provider, [facility] - 09/08/2023 * * *Final Report* * * DATE OF EXAM: Sep 08 2023 2:52PM MC 0629 - [facility] DIAG W DOMINIC RT / PROCEDURE REASON: multiple diagnoses * * * * Physician Interpretation * * * * RESULT: #[id number] - [facility] DIAG W DOMINIC RT #[id number] - [facility] US BIOPSY BREAST RT ULTRASOUND GUIDED [...] Almanzar performed the entire procedure without an personal injury legal assistant. Audible Time Out Time: 1420 Procedure [...] become available. Lea Almanzar M.D., jr/aracely:09/08/2023 16:24:26 Service Representative(s): RT Mane(R)(M), [facility] [place] Multiple national specialty organizations have released breast cancer screening guidelines for women at average risk for developing breast cancer - guidelines that are based on both evidence and opinion, yet differ on when to start and how often to screen for breast cancer. With representation from Breast Imaging, Internal Medicine, Women's Health, Family Medicine, and Medical/Surgical Oncology, the [facility] has carefully reviewed the data and reached [...] their providers when to stop screening mammograms. Sagger Filler: Aracely Transcribe Date/Time: Sep 08 2023 2:52P Dictated by : LEA ALMANAZR MD This examination was interpreted and the report reviewed and electronically signed by: LEA ALMANZAR MD on Sep 08 2023 4:24PM [facility] SAJI DIAG W DOMINIC RTon 024 SA[facility]I DIAG W DOMINIC RT * * *Final Report* * * * * * SEE BOTTOM OF REPORT FOR ADDENDED TEXT * * * DATE OF EXAM: Sep 08 2023 2:52PM MCW 0629 - SAJI DIAG W DOMINIC RT / PROCEDURE REASON: multiple diagnoses * * * * Physician Interpretation * * * * RESULT: FINAL REPORT #[id number] - [facility] DIAG W DOMINIC RT #[id number] - [facility] US BIOPSY BREAST RT ULTRASOUND GUIDED [...] Almanzar performed the entire procedure without an personal injury legal assistant. Audible Time Out Time: 1420 Procedure [...] surgical consultation. Lea Almanzar M.D., jr/aracely:09/11/2023 14:32:49 Service Representative(s): RT Mane(R)(M), [facility] [place] Multiple national specialty organizations have released breast cancer screening guidelines for women at average risk for developing breast cancer - guidelines that are based on both evidence and opinion, yet differ on when to start and how often to screen for breast cancer. With representation from Breast Imaging, Internal Medicine, Women's Health, Family Medicine, and Medical/Surgical Oncology, the [facility] has carefully reviewed the data and reached [...] their providers when to stop screening mammograms. Sagger Filler: (more content not included)... Normal [facility] US BIOPSY BREAST RTon [facility] US BIOPSY BREAST RT * * *Final Repor t* * * * * * SEE BOTTOM OF REPORT FOR ADDENDED TEXT * * * DATE OF EXAM: Sep 08 2023 2:52PM [facility] 0598 - [facility] US BIOPSY BREAST RT / PROCEDURE REASON: multiple diagnoses * * * * Physician Interpretation * * * * RESULT: FINAL REPORT #[id number] - [facility] DIAG W DOMINIC RT #[id number] - [facility] US BIOPSY BREAST RT ULTRASOUND GUIDED [...] Almanzar performed the entire procedure without an personal injury legal assistant. Audible Time Out Time: 1420 Procedure [...] surgical consultation. Lea Almanzar M.D., jr/aracely:09/11/2023 14:32:49 Service Representative(s): RT Mane(R)(M), The [facility] [place] Multiple national specialty organizations have released breast cancer screening guidelines for women at average risk for developing breast cancer - guidelines that are based on both evidence and opinion, yet differ on when to start and how often to screen for breast cancer. With representation from Breast Imaging, Internal Medicine, Women's Health, Family Medicine, and Medical/Surgical Oncology, the [facility] has carefully reviewed the data and reached [...] (more content not included)... Normal [facility] No Panel Informationon 09-07 IMPRESSION: ULTRASOU ND GUIDED BIOPSY Ultrasound guided biopsy of the 2 cm mass in the right breast at 8 o'clock 4 cm from the nipple with placement of a clip was successful with no apparent post procedure complications. Waiting for pathology results. A final report will be issued when these become available. Lea Almanzar M.D., jr/aracely:09/08/2023 16:24:26 Service Representative(s): RT Mane(R)(M), [facility] [place] Multiple national specialty organizations have released breast cancer screening guidelines for women at average risk for developing breast cancer - guidelines that are based on both evidence and opinion, yet differ on when to start and how often to screen for breast cancer. With representation from Breast Imaging, Internal Medicine, Women's Health, Family Medicine, and Medical/Surgical Oncology, the [facility] has carefully reviewed the data and reached [...] their providers when to stop screening mammograms. Sagger Filler: Aracely Transcribe Date/Time: Sep 08 2023 2:52P Dictated by : LEA ALMANZAR MD This examination was interpreted and the report reviewed and electronically signed by: LEA ALMANZAR MD on Sep 08 2023 4:24PM [facility] DIVISION OF RADIOLOGY Radiology Study observation (narrative) [facility] No Panel InformationOrdered By: [facility] Provider on 09-08-2023 [facility] PT EDon 09-08-2023 PT ED HNO ID: [id number] Author: MARITZA RODNEY RT(R) Service: ? Author [...] instructions REFERRAL (RECOMMENDATION): None Normal [facility] SURGICAL PATHOLOGYon 024 CASE REPORT Normal [facility] Comment on above: Order Comment: Speci men Type: TISSUE SPECIMENOrdering Facility: [facility] Address: [address] [place] [address] Result Comment: Surg ica Pathology Report Case: [id number] Authorizing Provider: Lea Almanzar MD Collected: 09/08/2023 02:04 PM Ordering Location: Mammography Received: 09/08/2023 07:51 PM Pathologist: Pat Silveira MD Specimen: Breast, Right, Core Biopsy, 8:00 4-5cmfn 2cm mass ultrasound biopsy with hydromark open coil clip Performed By: #### S ####[facility] LABORATORYCLIA [id number] [address] OF [facility] LABCLIA [id number] [address] FINAL DIAGNOSIS Normal [facility] Comment on above: Order Comment: Carlos Ai mia Type: TISSUE SPECIMENOrdering Facility: [facility] Address: [address] [place] [address] Result Comment: A. R ight breast at 8 o'clock, 4-5 cm from nipple, ultrasound-guided core biopsy with coil clip placement: - Fibroadenoma. Performed By: #### S ####[facility] LABORATORYCLIA [id number] [address] LABCLIA [id number] [address] [place] FINAL PERFORMING LAB Normal [facility] Comment on above: Order Comment: Speci men Type: TISSUE SPECIMENOrdering Facility: [facility] Address: [address] [place] [address] Result Comment: Diag nostic interpretation performed at [facility], [address] [place] [address] CLIA# [id number] Prosthetics Technician: Columba Villasenor M.D. Performed By: #### S ####MARYMOGILMER LABORATORYIA [id number] [address] LABCLIA [id number] [address] GROSS DESCRIPTION Normal [facility] Comment on above: Order Comment: Speci men Type: TISSUE SPECIMENOrdering Facility: [facility] Address: [address] [place] [address] Result Comment: A. B reast, Right, Core [...] cassette. Performed By: #### S ####[facility] LABORATORYCLIA [id number] [address] LABCLIA [id number] [address] [place] US Guidance for biopsy of Br braden - aaliyah 09-08-2023 * * *Final Report* * * DATE OF EXAM: Sep 08 2023 2:52PM [facility] 0598 - [facility] US BIOPSY BREAST RT / PROCEDURE REASON: multiple diagnoses * * * * Physician Interpretation * * * * RESULT: #[id number] - [facility] MARCO ALFARO RT #[id number] - [facility] US BIOPSY BREAST RT ULTRASOUND GUIDED [...] Almanzar performed the entire procedure without an personal injury legal assistant. Audible Time Out Time: 1420 Procedure [...] for pathological analysis. DIVISION OF RADIOLOGY Provider, [facility] - 09/08/2023 * * *Final Report* * * DATE OF EXAM: Sep 08 2023 2:52PM [facility] 0598 - [facility] US BIOPSY BREAST RT / PROCEDURE REASON: multiple diagnoses * * * * Physician Interpretation * * * * RESULT: #[id number] - [facility] DIAG W DOMINIC RT #[id number] - [facility] US BIOPSY BREAST RT ULTRASOUND GUIDED [...] Almanzar performed the entire procedure without an personal injury legal assistant. Audible Time Out Time: 1420 Procedure [...] become available. Lea Almanzar M.D., jr/aracely:09/08/2023 16:24:26 Service Representative(s): RT Mane(R)(M), The [facility] [place] Multiple national specialty organizations have released breast cancer screening guidelines for women at average risk for developing breast cancer - guidelines that are based on both evidence and opinion, yet differ on when to start and how often to screen for breast cancer. With representation from Breast Imaging, Internal Medicine, Women's Health, Family Medicine, and Medical/Surgical Oncology, the [facility] has carefully reviewed the data and reached [...] their providers when to stop screening mammograms. Sagger Filler: Aracely Transcribe Date/Time: Sep 08 2023 2:52P Dictated by : LEA ALMANZAR MD This examination was interpreted and the report reviewed and electronically signed by: LEA ALMANZAR MD on Sep 08 2023 4:24PM [facility] Laboratory - Chemistry and C hemistry - challengeon 09-02-2023 Free T4 [Mass/Vol] 0.98 ng/dL 0.76-1.46 [facility] TSH Qn 3.388 m[IU]/L 0.358-3.740 [facility] No Panel Informationon 09-01 Free Triiodothyronine 2.79 pg/mL 2.18-3.98 [facility] CNPNon 08-11-2023 CNPN Telephone (BRMN) ----- SULLY ENRIQUEZ ([id number]) 1990 F Date Time Provider Department 08/11/23 FRANCHESCA MAN [facility] During your visit today, we [...] FRANCHESCA MAN on 08/11/23 Normal [facility] CNOVon 08-07-2023 CNOV Office Visit (BRCRMN ) ----- SULLY ENRIQUEZ ([id number]) 1990 F Date Time Provider Department 08/07/23 [...] old premenopausal woman who presents to the [facility] [place] today for second opinion of right breast [...] seen for her breast related issues at [facility] with care as follows: 06/25/23: Diagnostic bilateral DBT and US at [facility]): - RIGHT breast 8oclock 4-5cmfn hypoechoic 2cm [...] (232 lb) (more content not included)... Normal [facility] Trendabl BREAST Cocodrilo Dog RTon 08-06 [facility] Trendabl BREAST Cocodrilo Dog RT * * *Final Report* * * DATE OF EXAM: Aug 07 2023 12:08PM [facility] 0594 - [facility] Adku RT / PROCEDURE REASON: multiple diagnoses * * * * Physician Interpretation * * * * RESULT: #[id number] - [facility] Adku RT LIMITED ULTRASOUND OF RIGHT BREAST: 08/07/2023 [...] breast cancer. Janes Winston M.D. ns/:08/07/2023 13:24:03 Service Representative(s): HAWA Shannon)(M), The [facility] Ultrasound BI-RADS: 2 Benign finding Multiple national specialty organizations have released breast cancer screening guidelines for women at average risk for developing breast cancer - guidelines that are based on both evidence and opinion, yet differ on when to start and how often to screen for breast cancer. With representation from Breast Imaging, Internal Medicine, [facility], Family Medicine, and Medical/Surgical Oncology, the [facility] has carefully reviewed the data and reached [...] their providers when to stop screening mammograms. Sagger Filler: Aracely Transcribe Date/Time: Aug 07 2023 11:56A Dictated by : JANES WINSTON MD This examination was interpreted and the report reviewed and electronically signed by: JANES WINSTON MD on Aug 07 2023 1:24PM EST [id number] Normal [facility] US Breast - right limitedon 08-07-2023 [facility] CNPMagaly 07-30-2023 [facility] SULLY ENRIQUEZ ([id number]) 1990 F Date Time Provider Department 07/30/23 [...] a second opinion. She was seen at [facility] in [place] I will reach out to them to retrieve any information and imaging needed for her appointment 08/07/23 with Franchesca FINNEGAN in the Breast Center [facility] contact number is [phone]. Kenia Peters MA Allergies As of Date: [...] KENIA PETERS on 07/30/23 Normal [facility] Basophils Auto (Bld) [#/Vol] on 07-25-2023 Basophils (Bld) [#/Vol] 0.0 10 3/uL 0.0-0.1 [facility] Basophils/100 WBC Auto (Bld) on 07-25-2023 Basophils/100 WBC (Bld) 0.3 % 0.2-2.0 [facility] CNPNon 07-25-2023 CNPN Telephone (BRCRBD) ----- ZOESULLY ([id number]) 1990 F Date Time Provider Department 07/25/23 FRANCHESCA MAN During your visit today, we recorded the following information about you: Kenia Peters MA 07/25/2023 12:59 PM Signed Called patient to discuss her upcoming appointment with Franchesca Man in the breast center. I left a message asking patient to call me back @[phone]. Kenia Peters MA Allergies As of Date: [...] KENIA PETERS on 07/25/23 Normal [facility] Eosinophils/100 WBC Auto (Bl d)on 07-25-2023 Eosinophils/100 WBC (Bld) 0.5 % 0.9-7.0 [facility] Erythrocyte distribution wid th Auto (RBC) [Ratio]on 07-25-2023 Erythrocyte distribution width (RBC) [Ratio] 12.0 % 11.0-15.0 [facility] Estimated glomerular filtrat ion rate (GFR) non- Americanon 07-25-2023 GFR/1.73 sq M.predicted among non-blacks MDRD (S/P/Bld) [Vol rate/Area] mL/min/{1.73_m2} >=60 [facility] Globulin Calc (S) [Mass/Vol] on 07-25-2023 Globulin (S) [Mass/Vol] 3.4 g/dL F [facility] HCG ( test) IA.rapi d Ql (U)on 07-25-2023 Beta HCG ( test) Ql (U) Negative NEGATIVE [facility] Hematocrit Auto (Bld) [Volum e fraction]on 07-25-2023 Hematocrit (Bld) [Volume fraction] 44.2 % 36.0-48.0 [facility] Hemoglobin [Mass/volume] in Bloodon 07-25-2023 Hemoglobin (Bld) [Mass/Vol] 14.5 g/dL 12.0-16.0 [facility] Laboratory - Chemistry and C hemistry - challengeon 07-25-2023 Albumin [Mass/Vol] 4.0 g/dL 3.4-5.0 [facility] ALP [Catalytic activity/Vol] 61 U/L 46-116 [facility] ALT [Catalytic activity/Vol] 25 U/L 14-59 [facility] AST [Catalytic activity/Vol] 13 U/L 15-37 [facility] Bilirubin [Mass/Vol] 0.6 mg/dL 0.2-1.0 [facility] Calcium [Mass/Vol] 8.8 mg/dL 8.5-10.1 [facility] Chloride [Moles/Vol] 103 mmol/L 98-107 [facility] CO2 [Moles/Vol] 24.0 mmol/L 21.0-32.0 [facility] Creatinine [Mass/Vol] 0.88 mg/dL 0.55-1.02 [facility] GFR/1.73 sq M.predicted MDRD (S/P/Bld) [Vol rate/Area] mL/min/{1.73_m2} >=60 [facility] Glucose [Mass/Vol] 99 mg/dL 74-106 [facility] Lipase [Catalytic activity/Vol] 23.0 U/L 16.0-77.0 [facility] Potassium [Moles/Vol] 3.9 mmol/L 3.5-5.1 [facility] Protein [Mass/Vol] 7.4 g/dL 6.4-8.2 [facility] Sodium [Moles/Vol] 138 mmol/L 136-145 [facility] Urea nitrogen [Mass/Vol] 10.0 mg/dL 7.0-18.0 [facility] Urea nitrogen/Creatinine [Mass ratio] 11.4 mg/mg [facility] Laboratory - Hematology and Cell countson 07-25-2023 Immature granulocytes/100 WBC (Bld) 0.3 % 0.0-0.5 [facility] Laboratory - Microbiology an d Antimicrobial susceptibilityon 07-25-2023 SARS-CoV-2 (COVID-19) RNA AZ+probe Ql (Unsp spec) Negative NEGATIVE [facility] Comment on above: This test has not [...] Auto (Bld) [#/Vol] 11.0 10 3/uL 4.0-11.0 [facility] Lymphocytes Auto (Bld) [#/Vo l]on 07-25-2023 Lymphocytes (Bld) [#/Vol] 0.8 10 3/uL 1.2-3.8 [facility] Lymphocytes/100 WBC Auto (Bl d)on 07-25-2023 Lymphocytes/100 WBC (Bld) 7.5 % 20.5-60.0 [facility] MCH Auto (RBC) [Entitic mass ]on 07-25-2023 MCH (RBC) [Entitic mass] 31.6 pg 26.7-34.0 [facility] MCHC Auto (RBC) [Mass/Vol]on 07-25-2023 MCHC (RBC) [Mass/Vol] 32.8 g/dL 29.9-35.2 Fir [facility] MCV Auto (RBC) [Entitic vol] on 07-25-2023 MCV (RBC) [Entitic vol] 96.3 fL 81.0-99.0 F [facility] Monocytes Auto (Bld) [#/Vol] on 07-25-2023 Monocytes (Bld) [#/Vol] 0.4 10 3/uL 0.3-0.8 [facility] Monocytes/100 WBC Auto (Bld) on 07-25-2023 Monocytes/100 WBC (Bld) 3.9 % 1.7-12.0 F [facility] Neutrophils Auto (Bld) [#/Vo l]on 07-25-2023 Neutrophils (Bld) [#/Vol] 9.7 10 3/uL 1.4-6.5 [facility] Neutrophils/100 WBC Auto (Bl d)on 07-25-2023 Neutrophils/100 WBC (Bld) 87.5 % 43.0-75.0 [facility] No Panel Informationon 07-24 Bedside Influenza Type A Antigen Negative [facility] Comment on above: Negative for Flu A p rotein antigen. Infection due to Flu Acannot be ruled out. Flu A antigen in the sample may bebelow the detection limit of the test. Bedside Influenza Type B Antigen Negative [facility] Comment on above: Negative for Flu B p rotein antigen. Infection due to Flu Bcannot be ruled out. Flu B antigen in the sample may bebelow the detection limit of the test. Eosinophils # (Auto) 0.1 10 3/uL 0.0-0.7 [facility] Immature Granulocyte # (Auto) 0.03 10 3/uL 0.00-0.03 [facility] Platelet mean volume Auto (B ld) [Entitic vol]on 07-25-2023 Platelet mean volume (Bld) [Entitic vol] 10.4 fL 9.5-13.5 [facility] Platelets Auto (Bld) [#/Vol] on 07-25-2023 Platelets (Bld) [#/Vol] 194 10 3/uL 150-450 [facility] RBC Auto (Bld) [#/Vol]on RBC (Bld) [#/Vol] 4.59 10 6/uL 4.20-5.40 [facility] Serum or plasma albumin/glob ulin mass ratioon 07-25-2023 Albumin/Globulin [Mass ratio] 1.2 {ratio} [facility] Serum or plasma anion gap de terminationon 07-25-2023 Anion gap [Moles/Vol] 14.9 mmol/L [facility] Mitchel 07-07-2023 L Specimen: Received: 07/07/23 Status: SOUDaisy Req Num: [id number] Spec Type: Surgical Subm Dr: Pablo Lindo II, MD Tissues: A BREAST CORE NO CALCS (RT BREAST TISSUE) Procedures: HE/2, Gross/Micro L4, AE1-AE3, CK5 6 Age/ Patient Sex Location Account Attending Physician Sully Enriquez 33/F WIUL [id number] Lucero Pimentel DO SPEC NUM: [id number] RECD: 07/07/23 STATUS: SOUT REQ NUM: [id number] MEGAN: 07/07/[address]: Pablo Lindo II, [...] Time: 0.08 Formalin Fixation Time: 6.62 Specimen: [id number] Received: 07/07/23 Status: ALEJANDRA Brennancristopher Num: [id number] Spec Type: Surgical Subm Dr: Pablo Lindo II, MD Tissues: A BREAST CORE NO CALCS (RT BREAST TISSUE) Procedures: HE/2, Gross/Micro L4, AE1-AE3, CK5 6 Patient: Sully Enriquez [id number] (Continued) Specimen: Received: 07/07/23 (Continued) Signed (signature on file) Mireya Garcia MD 07/09/231648 Specimen: Received: 07/07/23 Status: ALEJANDRA Marvin Num: [id number] Spec Type: Surgical Subm Dr: Pablo Lindo II, MD Tissues: A BREAST CORE NO CALCS (RT BREAST TISSUE) Procedures: HE/2, Gross/Micro L4, AE1-AE3, CK5 6 Patient: Sully Enriquez [id number] (Continued) Specimen: [id number] Received: 07/07/23 (Continued) CPT Codes 89953 Specimen: Received: 07/07/23 Status: ALEJANDRA Marvin Num: [id number] Spec Type: Surgical Subm Dr: Pablo Lindo II, MD Tissues: A BREAST CORE NO CALCS (RT BREAST TISSUE) Procedures: HE/2, Gross/Micro L4, AE1-AE3, CK5 6 Patient: Sully Enriquez [id number] (Continued) Signed (signature on file) Mireya Garcia MD 07/09/23 1649 Normal [facility] US breast ndl core biopsy RT on 07-07-2023 US breast ndl core biopsy RT [facility] [address] [place], [place] [id number] Ultrasound Report Signed Patient: Sully Enriquez MR#: [id number] : 1990 Acct:[id number] Age/Sex: 33 / F ADM Date: 07/07/23 Loc: [facility] Room: Type: [facility] Attending Dr: Lucero Pimentel DO Ordering Provider: Lucero Pimentel DO Date of Service: 07/07/23 US/US breast ndl core biopsy RT: R92.8 ([id number]) MM/MM post biopsy RT w/CAD: POST U/S [...] of the right breast was performed by cath lab radiological technologist as well as myself. At the [...] 8:00 position were performed using a 12-gauge Learnerator vacuum-assisted core biopsy needle under ultrasound guidance. [...] 07/07/23 1155 Signed By: 07/10/23 0836 Normal [facility] BI MAMMOGRAM DIAGNOSTIC DOMINIC SYNTHESIS [...] IS VERY IMPORTANT TO YOUR HEALTH. THE [place] [employer] GUIDELINES RECOMMEND THAT WOMEN 40 [...] IS VERY IMPORTANT TO YOUR HEALTH. THE [place] [employer] GUIDELINES RECOMMEND THAT WOMEN 40 YEARS OF AGE AND OLDER SHOULD HAVE A MAMMOGRAM EVERY YEAR. A REMINDER LETTER WILL BE SENT AT THE APPROPRIATE TIME. ELECTRONICALLY SIGNED BY: Sam Fox, DO Abnormal Not Available Alanine aminotransferase [En zymatic activity/volume] in Serum or PlasmaOrdered By: Bhanu Alvarez on 06-03-2023 ALT [Catalytic activity/Vol] 19 U/L Normal 7-52 [facility] Comment on above: Order Comment: Hemol yzed-requested redraw @ 1442. MLG Performed By: #### C MP, PRL, CBC ####[facility] [id number] [place] [id number] [facility] Albumin [Mass/volume] in Ser um or Plasma by Bromocresol green (BCG) dye binding methoOrdered By: Bhanu Alvarez on 06-03-2023 Albumin BCG dye [Mass/Vol] 4.6 g/dL 3.5-5.7 [facility] Alkaline phosphatase [Enzyma tic activity/volume] in Serum or PlasmaOrdered By: Bhanu Alvarez on 06-03-2023 ALP [Catalytic activity/Vol] 46 U/L Normal 34-104 [facility] Comment on above: Order Comment: Hemol yzed-requested redraw @ 1442. MLG Performed By: #### C MP, PRL, CBC ####[facility] [id number] [place] [id number] [facility] Amphetamine Screen Ql (U)Ord ered By: Bhanu Alvarez on 06-03-2023 Amphetamines Ql (U) Negative Negative [facility] Aspartate aminotransferase [ Enzymatic activity/volume] in Serum or PlasmaOrdered By: Bhanu Alvarez on 06-03-2023 AST [Catalytic activity/Vol] 14 U/L Normal 13-39 [facility] Comment on above: Order Comment: Hemol yzed-requested redraw @ 1442. MLG Performed By: #### C MP, PRL, CBC ####[address] Automated basophil %Ordered By: Bhanu Alvarez on 06-03-2023 Basophils/100 WBC (Bld) 0.6 % Normal . [facility] Comment on above: Performed By: #### C MP, PRL, CBC ####[address] Automated basophil countOrde red By: Bhanu Alvarez on 06-03-2023 Basophils (Bld) [#/Vol] 0.0 10*3/uL Normal 0.0-0.2 [facility] Comment on above: Result Comment: PERF ORMED BY: [facility] [address] [place] [address] PATHOLOGIST C++ PROFESSOR LEV HERNÁNDEZ M.D. Performed By: #### C MP, PRL, CBC ####[address] Automated blood monocyte cou ntOrdered By: Bhanu Alvarez on 06-03-2023 Monocytes (Bld) [#/Vol] 0.4 10*3/uL Normal 0.0-0.8 [facility] Comment on above: Performed By: #### C MP, PRL, CBC ####[address] Automated eosinophil %Ordere d By: Bhanu Alvarez on 06-03-2023 Eosinophils/100 WBC (Bld) 2.1 % Normal . [facility] Comment on above: Performed By: #### C MP, PRL, CBC ####[address] Automated eosinophil countOr dered By: Bhanu Alvarez on 06-03-2023 Eosinophils (Bld) [#/Vol] 0.1 10*3/uL Normal 0.0-0.45 [facility] Comment on above: Performed By: #### C MP, PRL, CBC ####[facility] [id number] Automated monocyte %Ordered By: Bhanu Alvarez on 06-03-2023 Monocytes/100 WBC (Bld) 6.5 % Normal . [facility] Comment on above: Performed By: #### C MP, PRL, CBC ####[facility] [id number] Automated neutrophil %Ordere d By: Bhanu Alvarez on 06-03-2023 Neutrophils/100 WBC (Bld) 52.8 % Normal . [facility] Comment on above: Performed By: #### C MP, PRL, CBC ####[facility] [id number] Automated urine color determ inationOrdered By: Bhanu Alvarez on 06-03-2023 Color (U) Yellow Normal Yellow [facility] Comment on above: Order Comment: Name Collection Type:: Clean-Voided Midstream Performed By: #### U A, UHCG, URDS #### [facility] [address] Barbiturates [Presence] in U rine by Screen methodOrdered By: Bhanu Alvarez on 06-03-2023 Barbiturates Screen Ql (U) Negative Negative [facility] Benzodiazepines Screen Ql (U )Ordered By: Bhanu Alvarez on 06-03-2023 Benzodiazepines Ql (U) Positive Negative [facility] Benzoylecgonine [Presence] i n Urine by Screen methodOrdered By: Bhanu Alvarez on 06-03-2023 Benzoylecgonine Screen Ql (U) Negative Negative [facility] Bilirubin Test strip Ql (U)O rdered By: Bhanu Alvarez on 06-03-2023 Bilirubin Ql (U) Negative Negative [facility] Bilirubin.total [Mass/volume ] in Serum or PlasmaOrdered By: Bhanu Alvarez on 06-03-2023 Bilirubin [Mass/Vol] 0.4 mg/dL Normal 0.3-1.0 [facility] Comment on above: Order Comment: Hemol yzed-requested redraw @ 1442. MLG Performed By: #### C MP, PRL, CBC ####[facility] [id number] [place] [id number] [facility] CT angio chest PE protocolon 06-03-2023 CT angio chest PE protocol [facility] [place] [address] [place] [id number] [address] Scan Report Signed Patient: Sully Enriquez MR#: [id number] : 1990 Acct:[id number] Age/Sex: 33 / F ADM Date: 06/03/23 Loc: ER Room: Type: [facility] ER Attending Dr: Copies to: Bhanu [...] Turner Jr., D.OHernandez06/03/2023 5:48 PM Dictation Location: [place] [address] Transcribed By: [facility] 06/03/23 174 Dictated By: Luis Turner Jr, DO 06/03/231746 Signed By: 06/03/231747 Normal [facility] Calcium [Mass/volume] in Ser um or PlasmaOrdered By: Bhanu Alvarez on 06-03-2023 Calcium [Mass/Vol] 9.5 mg/dL Normal 8.6-10.3 [facility] Comment on above: Order Comment: Hemol yzed-requested redraw @ 1442. MLG Performed By: #### C MP, PRL, CBC ####[place] [id number] [address] Cannabinoids [Presence] in U rine by Screen methodOrdered By: Bhanu Alvarez on 06-03-2023 Cannabinoids Screen Ql (U) Negative Negative [facility] Comment on above: These are unconfirme d results and should not be used for legal purposes. Drug Cut-Off Concentration: AMPH 1000 ng/mL WILIAN 200 ng/mL LESLY 200 ng/mL COCM 300 ng/mL OP 300 ng/mL PCP 25 ng/mL THC 20 ng/mL Carbon dioxide, total [Moles /volume] in Serum or PlasmaOrdered By: Bhanu Alvarez on 06-03-2023 CO2 [Moles/Vol] 22.4 mmol/L Normal 21.0-31.0 [facility] Comment on above: Order Comment: Hemol yzed-requested redraw @ 1442. MLG Performed By: #### C MP, PRL, CBC ####[address] Chloride [Moles/volume] in S juan carlos or PlasmaOrdered By: Bhanu Alvarez on 06-03-2023 Chloride [Moles/Vol] 108 mmol/L High 98-107 [facility] Comment on above: Order Comment: Hemol yzed-requested redraw @ 1442. MLG Performed By: #### C MP, PRL, CBC ####[place] [id number] [place] [id number] [facility] Complete Blood Count Auto Di ffon 06-03-2023 Mean Corpuscular HGB Conc 33.9 g/dL Normal 32.0-35.0 [facility] Comment on above: Performed By: #### C MP, PRL, CBC ####[place] [id number] [facility] Monocytes/100 WBC (Bld) 18.41 % Normal 0.00-20.00 [facility] Comment on above: Performed By: #### C MP, PRL, CBC ####[address] NRBC% 0.0 /100{WBC} Normal 0-0.5 [facility] Comment on above: Performed By: #### C MP, PRL, CBC ####[place] [id number] [facility] Comprehensive Metabolic Pane mitchel 06-03-2023 Albumin [Mass/Vol] 4.6 g/dL Normal 3.5-5.7 [facility] Comment on above: Order Comment: Hemol yzed-requested redraw @ 1442. MLG Performed By: #### C MP, PRL, CBC ####[address] Creatinine Clr Calc Pharmacy 110.22 Normal [facility] Comment on above: Order Comment: Hemol yzed-requested redraw @ 1442. MLG Performed By: #### C MP, PRL, CBC ####[address] GFR/1.73 sq M.predicted MDRD (S/P/Bld) [Vol rate/Area] mL/min/{1.73_m2} Normal [facility] Comment on above: Order Comment: Hemol yzed-requested redraw @ 1442. MLG Performed By: #### C MP, PRL, CBC ####[address] Creatinine [Mass/volume] in Serum or PlasmaOrdered By: Bhanu Alvarez on 06-03-2023 Creatinine [Mass/Vol] 0.86 mg/dL Normal 0.60-1.20 [facility] Comment on above: Order Comment: Hemol yzed-requested redraw @ 1442. MLG Performed By: #### C MP, PRL, CBC ####[place] [id number] [facility] D-Dimer High Sensitivityon 0 06-03-2023 D-Dimer High Sensitivity 282 ng/mL High 0-243 [facility] Comment on above: Result [...] coagulation studies. Please contact the laboratory at [phone] for redraw instructions. PERFORMED BY: [place] [address] PATHOLOGIST C++ PROFESSOR LEV HERNÁNDEZ M.D. Performed By: #### D DIMER #### [address] Drug Screen,Urineon 06-03-19 Amphetamine Screen,Urine Negative Normal Negative [facility] Comment on above: Performed By: #### U A, UHCG, URDS #### [address] Barbiturate Screen,Urine Negative Normal Negative [facility] Comment on above: Performed By: #### U A, UHCG, URDS #### [place] [address] [place] Benzodiazepines Screen,Urine Positive High Negative [facility] Comment on above: Performed By: #### U A, UHCG, URDS #### [address] Cannabinoid Screen,Urine Negative Normal Negative [facility] Comment on above: Result Comment: Thes e are unconfirmed results and should not be used for legal purposes. Drug Cut-Off Concentration: AMPH 1000 ng/mL WILIAN 200 ng/mL LESLY 200 ng/mL COCM 300 ng/mL OP 300 ng/mL PCP 25 ng/mL THC 20 ng/mL PERFORMED BY: [place] [address] PATHOLOGIST C++ PROFESSOR LEV HERNÁNDEZ M.D. Performed By: #### U A, UHCG, URDS #### [address] Cocaine Screen,Urine Negative Normal Negative [facility] Comment on above: Performed By: #### U A, UHCG, URDS #### [address] Opiate Screen,Urine Negative Normal Negative [facility] Comment on above: Performed By: #### U A, UHCG, URDS #### [address] Phencyclidine Screen,Urine Negative Normal Negative [facility] Comment on above: Performed By: #### U A, UHCG, URDS #### [address] ECG 12 lead ECGon 06-03-2023 ECG 12 lead ECG [facility] [place] [address] [place] [address] Electrocardiograph Report Signed Patient: Sully Enriquez MR#: [id number] : 1990 Acct:[id number] Age/Sex: 33 / F ADM Date: 06/03/23 Loc: ER Room: Type: [facility] ER Attending Dr: Ordering Provider: Bhanu [...] By Jose Cade DO 1547 Normal [facility] ECG 12 lead ECG [facility] [place] [address] [place] [address] Electrocardiograph Report Signed Patient: Sully Enriquez MR#: [id number] : 1990 Acct:[id number] Age/Sex: 33 / F ADM Date: 06/03/23 Loc: ER Room: Type: [facility] ER Attending Dr: Ordering Provider: Bhanu [...] By Jose Cade DO 1547 Normal [facility] Erythrocyte distribution wid th [Ratio] by Automated countOrdered By: Bhanu Alvarez on 06-03-2023 Erythrocyte distribution width (RBC) [Ratio] 12.5 % Normal 11.9-15.3 [facility] Comment on above: Performed By: #### C MP, PRL, CBC ####[facility] [id number] Erythrocytes [#/volume] in B lood by Automated countOrdered By: Bhanu Alvarez on 06-03-2023 RBC (Bld) [#/Vol] 4.42 10*6/uL Normal 3.60-5.00 [facility] Comment on above: Performed By: #### C MP, PRL, CBC ####[facility] [id number] [place] [id number] [facility] Fibrin D-dimer [Presence] in Platelet poor plasma by Latex agglutinationOrdered By: Bhanu Alvarez on 06-03-2023 Fibrin D-dimer LA Ql (PPP) 282 ng/mL 0-243 [facility] Comment on above: The reference range for [...] coagulation studies. Please contact the laboratory at [phone] for redraw instructions. Glucose [Mass/volume] in Ser um or PlasmaOrdered By: Bhanu Alvarez on 06-03-2023 Glucose [Mass/Vol] 102 mg/dL High 70-100 [facility] Comment on above: ADA recommended refe rence rangeRandom Glucose Reference Range is dependent on time and content of last meal. Glucose of more than 200 mg/dL in a nonstressed, ambulatory subject supports the diagnosis of Diabetes Mellitus. Order Comment: Hemol yzed-requested redraw @ 1442. MLG Result Comment: [place] Glucose Reference Range is dependent on time and content of last meal. Glucose of more than 200 mg/dL in a nonstressed, ambulatory subject supports the diagnosis of Diabetes Mellitus. ADA recommended reference range Performed By: #### C MP, PRL, CBC ####[facility] [id number] [place] [id number] [facility] HCG ( test) IA.rapi d Ql (U)Ordered By: Bhanu Alvarez on 06-03-2023 HCG ( test) Ql (U) Negative [facility] HCG,Urineon 06-03-2023 Beta HCG ( test) Ql (U) Negative Normal [facility] Comment on above: Order Comment: Name Collection Type:: Clean-Voided Midstream Result Comment: PERF ORMED BY: [place] [address] PATHOLOGIST C++ PROFESSOR LEV HERNÁNDEZ M.D. Performed By: #### U A, UHCG, URDS #### [address] Hematocrit [Volume Fraction] of Blood by Automated countOrdered By: Bhanu Alvarez on 06-03-2023 Hematocrit (Bld) [Volume fraction] 41.5 % Normal 34.0-46.4 [facility] Comment on above: Performed By: #### C MP, PRL, CBC ####[place] [id number] [address] Hemoglobin [Mass/volume] in BloodOrdered By: Bhanu Alvarez on 06-03-2023 Hemoglobin (Bld) [Mass/Vol] 14.1 g/dL Normal 11.8-15.4 [facility] Comment on above: Performed By: #### C MP, PRL, CBC ####[address] Ketones Auto test strip (U) [Mass/Vol]Ordered By: Bhanu Alvarez on 06-03-2023 Ketones (U) [Mass/Vol] Negative Negative [facility] Leukocytes [#/volume] correc armaan for nucleated erythrocytes in Blood by Automated counOrdered By: Bhanu Alvarez on 06-03-2023 WBC corrected for nucl RBC Auto (Bld) [#/Vol] 6.8 10*3/uL 3.8-11.6 [facility] Leukocytes [#/volume] in Blo od by Automated countOrdered By: Bhanu Alvarez on 06-03-2023 WBC (Bld) [#/Vol] 6.8 10*3/uL Normal 3.8-11.6 [facility] Comment on above: Performed By: #### C MP, PRL, CBC ####[address] [address] [place] Lymphocytes [#/volume] in Bl ood by Automated countOrdered By: Bhanu Alvarez on 06-03-2023 Lymphocytes (Bld) [#/Vol] 2.6 10*3/uL Normal 1.00-4.8 [facility] Comment on above: Performed By: #### C MP, PRL, CBC ####[address] Lymphocytes/100 leukocytes i n Blood by Automated countOrdered By: Bhanu Alvarez on 06-03-2023 Lymphocytes/100 WBC (Bld) 38.0 % Normal . [facility] Comment on above: Performed By: #### C MP, PRL, CBC ####[address] MCH [Entitic mass] by Automa armaan countOrdered By: Bhanu Alvarez on 06-03-2023 MCH (RBC) [Entitic mass] 31.8 pg Normal 24.7-34.3 [facility] Comment on above: Performed By: #### C MP, PRL, CBC ####[address] MCHC Auto (RBC) [Mass/Vol]Or dered By: Bhanu Alvarez on 06-03-2023 MCHC (RBC) [Mass/Vol] 33.9 g/dL 32.0-35.0 [facility] MCV [Entitic volume] by Auto mated countOrdered By: Bhanu Alvarez on 06-03-2023 MCV (RBC) [Entitic vol] 93.9 fL Normal 80-100 [facility] Comment on above: Performed By: #### C MP, PRL, CBC ####[address] Monocyte distribution width [Entitic volume] in Blood by AutomatedOrdered By: Bhanu Alvarez on 06-03-2023 Monocyte distribution width Auto (Bld) [Entitic vol] 18.41 % 0.00-20.00 [facility] Neutrophils [#/volume] in Bl ood by Automated countOrdered By: Bhanu Alvarez on 06-03-2023 Neutrophils (Bld) [#/Vol] 3.6 10*3/uL Normal 1.8-7.7 [facility] Comment on above: Performed By: #### C MP, PRL, CBC ####[facility] [id number] Nitrite Test strip Ql (U)Ord ered By: Bhanu Alvarez on 06-03-2023 Nitrite Ql (U) Negative Negative [facility] No Panel InformationOrdered By: Bhanu Alvarez on 06-03-2023 Estimated GFR (CKD-EPI) > 60.0 mL/Min [facility] Creatinine Clearance (Chem 110.22 [facility] Nucleated erythrocytes [Pres ence] in Blood by Automated countOrdered By: Bhanu Alvarez on 06-03-2023 Nucleated RBC Auto Ql (Bld) 0.0 /100{WBC} 0-0.5 [facility] Opiates [Presence] in Urine by Screen methodOrdered By: Bhanu Alvarez on 06-03-2023 Opiates Screen Ql (U) Negative Negative [facility] Phencyclidine Screen Ql (U)O rdered By: Bhanu Alvarez on 06-03-2023 Phencyclidine Ql (U) Negative Negative [facility] Platelet mean volume [Entiti c volume] in Blood by Automated countOrdered By: Bhanu Alvarez on 06-03-2023 Platelet mean volume (Bld) [Entitic vol] 9.3 fL Normal 6.3-10.7 [facility] Comment on above: Performed By: #### C MP, PRL, CBC ####[facility] [id number] Platelets [#/volume] in Bloo d by Automated countOrdered By: Bhanu Alvarez on 06-03-2023 Platelets (Bld) [#/Vol] 196 10*3/uL Normal 150-450 [facility] Comment on above: Performed By: #### C MP, PRL, CBC ####[facility] [id number] Potassium [Moles/volume] in Serum or PlasmaOrdered By: Bhanu Alvarez on 06-03-2023 Potassium [Moles/Vol] 3.7 mmol/L Normal 3.5-5.1 [facility] Comment on above: Order Comment: Hemol yzed-requested redraw @ 1442. MLG Performed By: #### C MP, PRL, CBC ####[id number] [place] [address] [facility] Prolactinon 06-03-2023 Prolactin 8.46 ng/mL Normal 3.34-26.72 [facility] Comment on above: Order Comment: Hemol yzed-requested redraw @ 1442. MLG Result Comment: PERF ORMED BY: [facility] [address] [place] [id number] PATHOLOGIST C++ PROFESSOR LEV HERNÁNDEZ M.D. Performed By: #### C MP, PRL, CBC ####[address] [address] [facility] Prolactin [Mass/volume] in S juan carlos or PlasmaOrdered By: Bhanu Alvarez on 06-03-2023 Prolactin [Mass/Vol] 8.46 ng/mL 3.34-26.72 [facility] Protein Auto test strip (U) [Mass/Vol]Ordered By: Bhanu Alvarez on 06-03-2023 Protein (U) [Mass/Vol] Negative Negative [facility] Protein [Mass/volume] in Ser um or PlasmaOrdered By: Bhanu Alvarez on 06-03-2023 Protein [Mass/Vol] 7.5 g/dL Normal 6.4-8.9 [facility] Comment on above: Order Comment: Hemol yzed-requested redraw @ 1442. MLG Performed By: #### C MP, PRL, CBC ####[address] [address] [facility] Serum globulin measurement b y calculation (mass/volume)Ordered By: Bhanu Alvarez on 06-03-2023 Globulin (S) [Mass/Vol] 2.9 g/dL Normal F [facility] Comment on above: Order Comment: Hemol yzed-requested redraw @ 1442. MLG Performed By: #### C MP, PRL, CBC ####[facility] [address] Serum or plasma albumin/glob ulin mass ratioOrdered By: Bhanu Alvarez on 06-03-2023 Albumin/Globulin [Mass ratio] 1.6 {ratio} Normal [facility] Comment on above: Order Comment: Hemol yzed-requested redraw @ 1442. MLG Performed By: #### C MP, PRL, CBC ####[address] Serum or plasma anion gap de terminationOrdered By: Bhanu Alvarez on 06-03-2023 Anion gap [Moles/Vol] 11.3 mmol/L Normal 6.0-15.0 [facility] Comment on above: Order Comment: Hemol yzed-requested redraw @ 1442. MLG Performed By: #### C MP, PRL, CBC ####[address] Sodium [Moles/volume] in Ser um or PlasmaOrdered By: Bhanu Alvarez on 06-03-2023 Sodium [Moles/Vol] 138 mmol/L Normal 136-145 [facility] Comment on above: Order Comment: Hemol yzed-requested redraw @ 1442. MLG Performed By: #### C MP, PRL, CBC ####[address] Specific gravity Auto test s trip (U) [Rel density]Ordered By: Bhanu Alvarez on 06-03-2023 Specific gravity (U) [Rel density] 1.010 1.001-1.030 [facility] Troponin I High Sensitivityo n 06-03-2023 Troponin I High Sensitivity < 2.3 Normal 0.0-15.0 [facility] Comment on above: Result Comment: PERF ORMED BY: [facility] [address] [place] [address] PATHOLOGIST C++ PROFESSOR LEV HERNÁNDEZ M.D. Performed By: #### H S TROP ####[address] Troponin I.cardiac [Mass/vol ume] in Serum or Plasma by Detection limit <= 0.01 ng/Ordered By: Bhanu Alvarez on 06-03-2023 Troponin I.cardiac DL <= 0.01 ng/mL [Mass/Vol] < 2.3 pg/mL 0.0-15.0 [facility] Urea nitrogen [Mass/volume] in Serum or PlasmaOrdered By: Bhanu Alvarez on 06-03-2023 Urea nitrogen [Mass/Vol] 10 mg/dL Normal 7-25 [facility] Comment on above: Order Comment: Hemol yzed-requested redraw @ 1442. MLG Performed By: #### C MP, PRL, CBC ####[facility] [id number] Urinalysison 06-03-2023 Appearance (U) Clear Normal Clear [facility] Comment on above: Order Comment: Name Collection Type:: Clean-Voided Midstream Performed By: #### U A, UHCG, URDS #### [facility] [address] Bilirubin,Urine Negative Normal Negative [facility] Comment on above: Order Comment: Name Collection Type:: Clean-Voided Midstream Performed By: #### U A, UHCG, URDS #### [facility] [address] Glucose Ql (U) Normal Normal Normal [facility] Comment on above: Order Comment: Name Collection Type:: Clean-Voided Midstream Performed By: #### U A, UHCG, URDS #### [facility] [address] Ketones Ql (U) Negative Normal Negative [facility] Comment on above: Order Comment: Name Collection Type:: Clean-Voided Midstream Performed By: #### U A, UHCG, URDS #### [facility] [address] Leukocyte esterase Test strip Ql (U) Negative Normal Negative [facility] Comment on above: Order Comment: Name Collection Type:: Clean-Voided Midstream Performed By: #### U A, UHCG, URDS #### [facility] [address] [place] [address] [place] Nitrite,Urine Negative Normal Negative [facility] Comment on above: Order Comment: Name Collection Type:: Clean-Voided Midstream Performed By: #### U A, UHCG, URDS #### [facility] [address] [place] [address] [place] Occult Blood,Urine Negative Normal Negative [facility] Comment on above: Order Comment: Name Collection Type:: Clean-Voided Midstream Performed By: #### U A, UHCG, URDS #### [facility] [address] [place] [address] [place] Protein,Urine Negative Normal Negative [facility] Comment on above: Order Comment: Name Collection Type:: Clean-Voided Midstream Performed By: #### U A, UHCG, URDS #### [address] Specificy [place],Urine 1.010 Normal 1.001-1.030 [facility] Comment on above: Order Comment: Name Collection Type:: Clean-Voided Midstream Performed By: #### U A, UHCG, URDS #### [place] [address] [place] Urobilinogen,Urine Normal Normal Normal [facility] Comment on above: Order Comment: Name Collection Type:: Clean-Voided Midstream Performed By: #### U A, UHCG, URDS #### [address] Urine clarity by refractomet ry automatedOrdered By: Bhanu Alvarez on 06-03-2023 Clarity Refractometry automated (U) Clear Clear [facility] Urine glucose measurement by automated test strip (mass/volume)Ordered By: Bhanu Alvarez on 06-03-2023 Glucose Auto test strip (U) [Mass/Vol] Normal mg/dL Normal [facility] Urine hemoglobin detection b y automated test stripOrdered By: Bhanu Alvarez on 06-03-2023 Hemoglobin Auto test strip Ql (U) Negative Negative [facility] Urine leukocyte esterase det ection by automated test stripOrdered By: Bhanu Alvarez on 06-03-2023 Leukocyte esterase Auto test strip Ql (U) Negative Negative [facility] Urine pH measurement by auto mated test stripOrdered By: Bhanurajwinder Alvarez on 06-03-2023 pH (U) 6.5 [pH] Normal 5.0-9.0 [facility] Comment on above: Order Comment: Name Collection Type:: Clean-Voided Midstream Performed By: #### U A, UHCG, URDS #### [facility] [address] Urobilinogen Auto test strip (U) [Mass/Vol]Ordered By: Bhanu Alvarez on 06-03-2023 Urobilinogen (U) [Mass/Vol] Normal mg/dL Normal [facility] Physician Referralon 023 Physician Referral [id number] Normal [facility] Physician Referralon 023 Physician Referral [id number]:12 7 Normal [facility] RAD - MISCon 12-27-2022 RAD - MISC [id number]#1.00CD:12 7 Normal [facility] ED Note-Physicianon 11-27-19 23 ED Note-Physician [id number]#[id number]:12 7 Normal [facility] ED Note-Physician Basic Information Time Seen: Gaby Turner PA-C 11/22/2022 20:47 Chief Complaint L flank pain worsening x 2 weeks. pt. seen at [facility] x 2 with negative workup. hx kidney stones. also c/o N/V. denies fevers. History of Present Illness This patient presents emergency department chief complaint of left flank pain. The patient states this has been going on for 2 weeks. She has been seen at [facility] twice but they could not determine an [...] Patient has not followed up with a shorthand reporter in a long time. I discussed with [...] the patient (more content not included)... Normal [facility] Comment on above: Result Comment: [...] Locations R1: This test was performed at: [facility], [address] [place] [address], [id number] [place] [address], [facility] Comment on above: Performed By: #### 1 [id number], [id number], [id number] #### [facility] [address] [place] [address] Discharge Instructionson Discharge Instructions [id number]#[id number]:1 27 [facility] ED Clinical Summaryon 2022 ED Clinical Summary (Inserted Image. Jeniffer ble to display) [address] [address] ED Clinical Summary Person Information Name: SULLY ENRIQUEZ [place] Age: 32 Years : 1990 Sex: Female Language: Kyrgyz PCP: MARIO GLASGOW DO Marital Status: Visit [...] 11/23/2022 01:20:40 11/23/2022 01:20:40 11/23/2022 01:20:40 ADDRESS: [address] [place] [address] [id number] PHYS DOC NOTES: MEDICAL INFORMATION: Prescriptions Given: New Medications [id number], [address], [place] [id number], [phone] tramadol (traMADOL 50 mg Tab) 1 Tablets By Mouth every 6 hours as needed for pain. Refills: 0. Medications to Continue with No Changes Other Medications acetaminophen-hydrocodone ([place] 5/325 Tab) By Mouth every 6 hours. [...] Endometriosis; Laparoscopic Lysis of Abdominal Adhesions; Adhesions, Euma-uw-Hbek; Abdominal Pain, Adult, Seyp-ur-Smgo Follow up: With: Address: When: MARIO BRYANGLES [address] [place], [place] [id number] Business (1) In 3 days 11/26/2022 DIAGNOSIS: 1:Chronic left flank pain; 2:Abdominal pain, acute, left upper quadrant; Other chronic pain Normal [facility] ED Patient Education Noteon 11-23-2022 ED Patient [...] including vitamins, herbs, eye drops, creams, and flbb-lfo-pzhbwuu medicines. ? Any problems you or family [...] tells you to take them. ? Taking xddb-idz-orrchaw medicines, vitamins, herbs, and supplements. General instructions [...] returns. Aft (more content not included)... Normal [facility] ED Patient Summaryon 023 ED Patient Summary (Inserted Image. Jeniffer ble to display) [place] [id number] Patient Discharge Instructions Person Information Name: SULLY ENRIQUEZ Age: 32 Years Arrival Date: 11/22/2022 19:01:04 Discharge Diagnosis: 1:Chronic left flank pain; 2:Abdominal pain, acute, left upper quadrant; Other chronic pain Primary Care Physician: MARIO GLASGOW DO Provider Information Primary Provider: Sonam Montoya DO Advanced Alternative Education Teacher:None The exam and treatment you received in the Emergency Department were for an urgent problem and are not intended as complete care. It is important that you follow up with a doctor, nurse practitioner, or physician?s personal injury legal assistant for ongoing care. If your symptoms [...] MARIO GLASGOW [address], [address] [place] [address] Business (1) In 3 days 11/26/2022 In the event that this physician does not participate in your insurance network, please consult with your insurance company to find a nearby participating provider. Patient Education Materials: Endometriosis; Laparoscopic Lysis of Abdominal Adhesions; Adhesions, Qfsx-av-Ojtk; Abdominal Pain, Adult, Apqj-nc-Yysy A MESSAGE TO ALL PATIENTS REGARDING OPIOIDS PRESCRIPTION OPIOIDS: WHAT YOU NEED TO KNOW Prescription opioids can be used to help relieve jnjxjocj-wr-eeciqr pain and are often prescribed following a [...] struggling wit (more content not included)... Normal [facility] XR Abdomen 1 Viewon 11-24-19 XR Abdomen [...] mGy = na DAP = na Normal [facility] Auto Diffon 11-22-2022 Basophils/100 WBC (Bld) 0.6 % Normal 0.0-2.[address] [facility] Comment on above: Order Comment: Order Added by Discern Expert. Performed By: #### 2 102683, 4892025, 4662844, 97583430, 1099427, 4803506 #### [facility] [address] [place] [address] Basophils/Leukocytes Auto (Bld) [Pure # fraction] 0.0 E9/L Normal 0.0-0.2 [facility] Comment on above: Order Comment: Order Added by Discern Expert. Performed By: #### 2 018851, 6477017, 1899341, 59078277, 2223301, 9909034 #### [facility] [address] [place] [address] Eosinophils/100 WBC (Bld) 1.5 % Normal 0.0-8.0 [facility] Comment on above: Order Comment: Order Added by Crason Expert. Performed By: #### 2 460790, 3017769, 6809808, 95679624, 8300373, 3233354 #### [facility] [address] [place] [address] Eosinophils/Leukocytes Auto (Bld) [Pure # fraction] 0.1 E9/L Normal 0.0-0.5 [facility] Comment on above: Order Comment: Order Added by Carson Expert. Performed By: #### 2 400743, 0482030, 8668699, 71175521, 8959810, 4575508 #### [facility] [address] [place] [address] Lymphocytes/100 WBC (Bld) 33.5 % Normal 14.0-50.0 [facility] Comment on above: Order Comment: Order Added by Carson Expert. Performed By: #### 2 636027, 2086324, 4749097, 41871668, 3960321, 5446304 #### [facility] [address] [place] [address] Lymphocytes/Leukocytes Auto (Bld) [Pure # fraction] 2.6 E9/L Normal 1.0-4.0 [facility] Comment on above: Order Comment: Order Added by Discern Expert. Performed By: #### 2 434168, 3744169, 8872407, 62418353, 6981217, 3411544 #### [facility] [address] [place] [address] Monocytes/100 WBC (Bld) 8.6 % Normal 4.0-14.0 [facility] Comment on above: Order Comment: Order Added by Discern Expert. Performed By: #### 2 732825, 3759797, 7789513, 08994948, 8216521, 6773523 #### [facility] [address] [place] [address] Monocytes/Leukocytes Auto (Bld) [Pure # fraction] 0.7 E9/L Normal 0.2-1.0 [facility] Comment on above: Order Comment: Order Added by Carson Expert. Performed By: #### 2 942818, 4467240, 7551155, 11950107, 2326835, 2269510 #### [facility] [address] [place] [address] Neutrophils/100 WBC (Bld) 55.8 % Normal 36.0-75.0 [facility] Comment on above: Order Comment: Order Added by Discern Expert. Performed By: #### 2 972665, 4226458, 4175171, 11828804, 5461272, 0221703 #### [facility] [address] [place] [address] Neutrophils/Leukocytes Auto (Bld) [Pure # fraction] 4.3 E9/L Normal 2.0-7.5 [facility] Comment on above: Order Comment: Order Added by Carson Expert. Performed By: #### 2 562687, 7745526, 7560742, 00982545, 6771088, 3508892 #### [facility] [address] [place] [address] BMPon 11-22-2022 Creatinine [Mass/Vol] 1.0 mg/dL Normal 0.5-1.3 [facility] Comment on above: Performed By: #### 2 776811, 6730390, 5215097, 81554993, 7630514, 2448976 #### [facility] [address] [place] [address] Urea nitrogen [Mass/Vol] 16 mg/dL Normal 5-21 [facility] Comment on above: Performed By: #### 2 348890, 6419648, 4115777, 75358897, 8434993, 0099595 #### [facility] [address] [place] [address] Urea nitrogen/Creatinine [Mass ratio] 16 No Units Normal 10-20 [facility] Comment on above: Performed By: #### 2 899122, 2844107, 2639526, 04461698, 1326924, 2826586 #### [facility] [address] [place] [address] Anion gap [Moles/Vol] 15 mmol/L Normal 6-16 [facility] Comment on above: Performed By: #### 2 857215, 9295992, 6837150, 83276060, 4934284, 3762309 #### [facility] [address] [place] [address] Calcium [Mass/Vol] 9.6 mg/dL Normal 8.9-11.1 [facility] Comment on above: Performed By: #### 2 394055, 2229753, 0430687, 07574839, 3688725, 7600182 #### [facility] [address] [place] [address] Chloride [Moles/Vol] 107 mmol/L Normal 101-111 [facility] Comment on above: Performed By: #### 2 615054, 0484469, 6271091, 30987760, 0921624, 1051738 #### [facility] [address] [place] [address] CO2 [Moles/Vol] 19 mmol/L Low 21-31 [facility] Comment on above: Performed By: #### 2 711264, 8541266, 5849638, 45145523, 3621926, 8846313 #### [facility] [address] [place] [address] Glucose [Mass/Vol] 97 mg/dL Normal 55-199 [facility] Comment on above: Result Comment: If t his glucose result represents a fasting glucose, interpretation should refer to the following reference range: 55-99 mg/dL Performed By: #### 2 029481, 4222597, 1095222, 15771820, 9424616, 1507794 #### [facility] [address] [place] [address] Potassium [Moles/Vol] 3.9 mmol/L Normal 3.5-5.3 [facility] Comment on above: Performed By: #### 2 679466, 0468781, 8513868, 23954350, 3285088, 6505284 #### [facility] [address] [place] [address] Sodium [Moles/Vol] 137 mmol/L Normal 135-145 [facility] Comment on above: Performed By: #### 2 520688, 9877047, 6112696, 81129466, 1245701, 4336438 #### [facility] [address] [place] [address] CBC w/ Auto Diffon 3 Erythrocyte distribution width (RBC) [Ratio] 13.0 % Normal 10.9-14.2 [facility] Comment on above: Performed By: #### 2 970499, 8763743, 8365567, 31224662, 3683754, 5862554 #### [facility] [address] [place] [address] Hematocrit (Bld) [Volume fraction] 42.7 % Normal 34.0-46.0 [facility] Comment on above: Performed By: #### 2 070521, 0015098, 8468788, 00356792, 5985302, 4272537 #### [facility] [address] [place] [address] Hemoglobin (Bld) [Mass/Vol] 14.6 g/dL Normal 12.0-16.0 [facility] Comment on above: Performed By: #### 2 865489, 8142377, 5959615, 83897551, 2001302, 9508157 #### [facility] [address] [place] [address] MCH (RBC) [Entitic mass] 31.7 pg Normal 27.0-34.0 [facility] Comment on above: Performed By: #### 2 534030, 5412369, 4254299, 20627622, 1970113, 1483507 #### [facility] [address] [place] [address] MCHC (RBC) [Mass/Vol] 34.1 g/dL Normal 31.4-36.0 [facility] Comment on above: Performed By: #### 2 833574, 5588781, 5547522, 41232551, 7942597, 5488279 #### [facility] [address] [place], [place] [address] MCV (RBC) [Entitic vol] 93.1 fL Normal 80.0-100.[address] [facility] Comment on above: Performed By: #### 2 239473, 1622747, 6734746, 99624647, 1348920, 7669598 #### [facility] [address] [place] [address] Platelet mean volume (Bld) [Entitic vol] 8.8 fL Normal 6.4-10.8 [facility] Comment on above: Performed By: #### 2 286291, 0818074, 1930333, 79380494, 2780703, 6877521 #### [facility] [address] [place] [address] Platelets (Bld) [#/Vol] 199.0 E9/L Normal 150.0-500.0 [facility] Comment on above: Performed By: #### 2 114222, 4869632, 9177415, 97860587, 8141393, 9765780 #### [facility] [address] [place] [address] RBC (Bld) [#/Vol] 4.6 E12/L Normal 4.3-5.9 [facility] Comment on above: Performed By: #### 2 844287, 1149296, 4646709, 19382436, 3652840, 7157503 #### [facility] [address] [place] [address] WBC corrected for nucl RBC Auto (Bld) [#/Vol] 7.7 E9/L Normal 4.0-11.0 [facility] Comment on above: Performed By: #### 2 265099, 4336373, 4654654, 85116584, 7637368, 1818621 #### [facility] [address] [place] [address] CHEMISTRYOrdered By: SYSTEM SYSTEM on 11-22-2022 Albumin [...] Remisol Consent for Treatmenton Consent for Treatment [id number]:12 7 Normal [facility] HEMATOLOGYOrdered By: SYSTEM SYSTEM on 11-22-2022 Basophils/100 [...] Bilirubin.indirect [Mass or moles/Vol] UT Abnormal 0.1-0.9 [facility] Comment on above: Result Comment: Resu lt verified by Discern Rule. Performed result UT (Unable to Calculate) was sent as an Alpha code due the inability to calculate a valid numeric value. Performed By: #### 2 963230, 5720155, 0228809, 27285165, 5406821, 3540701 #### [facility] [address] [place] [address] Albumin [Mass/Vol] 4.5 g/dL Normal 3.3-5.0 [facility] Comment on above: Performed By: #### 2 672360, 1913202, 5742437, 31867468, 8244808, 8757312 #### [facility] [address] [place] [address] Albumin/Globulin (S) [Mass conc ratio] 1.3 Normal 1.1-2.2 [facility] Comment on above: Performed By: #### 2 740289, 3665910, 1215120, 79407029, 3413789, 0425179 #### [facility] [address] [place] [address] ALP [Catalytic activity/Vol] 42 Int._Unit/L Normal 21-98 [facility] Comment on above: Performed By: #### 2 648703, 0564553, 2351788, 62513244, 9636072, 4802538 #### [facility] [address] [place] [address] ALT No additional P-5'-P [Catalytic activity/Vol] 36 Int._Unit/L Normal 6-46 [facility] Comment on above: Performed By: #### 2 872593, 0719645, 2804581, 77222366, 1693749, 7139808 #### [facility] [address] [place] [address] AST [Catalytic activity/Vol] 26 Int._Unit/L Normal 5-43 [facility] Comment on above: Performed By: #### 2 [id number], 6929133, 8096568, 69215165, 0679322, 9974336 #### [facility] [address] [place] [address] Bilirubin [Mass/Vol] 0.6 mg/dL Normal 0.0-1.1 Fish [facility] Comment on above: Performed By: #### 2 105059, 5943792, 7574660, [id number], 0279201, 5205229 #### [facility] [address] [place] [address] Globulin (S) [Mass/Vol] 3.4 g/dL Normal 1.4-4.[address] [facility] Comment on above: Performed By: #### 2 997068, 4668001, 2770157, 32649887, 6102021, 6620609 #### [facility] [address] [place] [address] Protein [Mass/Vol] 7.9 g/dL High 6.0-7.8 [facility] Comment on above: Performed By: #### 2 555423, 2736025, 1042411, 56923908, 3106749, 5433699 #### [facility] [address] [place] [address] Bilirubin.direct [Mass/Vol] mg/dL Normal 0.1-0.4 [facility] Comment on above: Performed By: #### 2 796685, 0070727, 4726669, 62579740, 1793196, 9330783 #### [facility] [address] [place] [address] Laboratory - Microbiology an d Antimicrobial susceptibilityOrdered By: Sherice Espinosa on 11-22-2022 Bacteria identified Cx Nom (U) 500 cfu/ml Mixed skin contaminants [facility] Lipase Levelon 11-22-2022 Lipase [Catalytic activity/Vol] 28 U/L Normal 13-58 [facility] Comment on above: Performed By: #### 2 077478, 2936256, 4167299, 34610027, 9846897, 1315451 #### [facility] [address] [place] [address] SEROLOGYOrdered By: Mario For ster on 11-22-2022 HCG.beta subunit (U) [Moles/Vol] Negative Normal [facility] Sero U BetaHcg Qualon 11-22-2022 HCG.beta subunit (U) [Moles/Vol] Negative Normal [facility] Comment on above: Performed By: #### 1 3854227, 3776238, 02261959 #### [facility] [address] [place] [address] UA With Cult Reflexon 2022 Bacteria LM Ql (Urine sed) 2+ /HPF Abnormal Trace [facility] Comment on above: Performed By: #### 1 7140904, 6262545, [id number] #### [facility] [address] [place] [address] Bilirubin Ql (U) Negative Normal Negative [facility] Comment on above: Performed By: #### 1 2577546, 9307120, [id number] #### [facility] [address] [place] [address] Clarity (U) CLEAR Normal Clear [facility] Comment on above: Performed By: #### 1 1705162, 3204868, 97610412 #### [facility] [address] [place] [address] Color (U) YELLOW Normal Yellow [facility] Comment on above: Performed By: #### 1 9867200, 0308783, 68570026 #### [facility] [address] [place] [address] Epithelial cells.squamous LM.HPF (Urine sed) [#/Area] 5-8 Normal 0-2 [facility] Comment on above: Performed By: #### 1 9711729, 8112993, 51983646 #### [facility] [address] [place] [address] Glucose Test strip (U) [Mass/Vol] Negative Normal Negative [facility] Comment on above: Performed By: #### 1 7542705, 5362642, 45148916 #### [facility] [address] [place] [address] Hemoglobin Ql (U) Negative Normal Negative [facility] Comment on above: Performed By: #### 1 8368557, 4893711, 61947049 #### [facility] [address] [place] [address] Ketones (U) [Mass/Vol] Negative Normal Negative [facility] Comment on above: Performed By: #### 1 7558813, 7434035, 40291415 #### [facility] [address] [place] [address] [place].plasma/[place]. RBC (Bld) [Mass ratio] 0-3 Normal 0-3 [facility] Comment on above: Performed By: #### 1 2279312, 4225569, 37610820 #### [facility] [address] [place] [address] Mucus Ql (Urine sed) TRACE Normal Fish [facility] Comment on above: Performed By: #### 1 2227423, 5114904, 58840648 #### [facility] [address] [place] [address] Nitrite Ql (U) Negative Normal Negative [facility] Comment on above: Performed By: #### 1 6010204, 4592792, 08086442 #### [facility] [address] [place] [address] pH (U) 6.0 [pH] Invalid Interpretation Code 5.0-9.0 [facility] Comment on above: Performed By: #### 1 9374044, 2269668, 62936788 #### [facility] [address] [place] [address] Protein (U) [Mass/Vol] Negative Normal Negative [facility] Comment on above: Performed By: #### 1 1372750, 7629375, 32137272 #### [facility] [address] [place] [address] Specific gravity (U) [Rel density] 1.025 Invalid Interpretation Code 1.005-1.030 [facility] Comment on above: Performed By: #### 1 8787471, 1699110, 19672737 #### [facility] [address] [place] [address] Type of Urine collection method Clean Catch Normal [facility] Comment on above: Performed By: #### 1 3715170, 2072231, 86123659 #### [facility] [address] [place] [address] Urobilinogen Qn (U) 0.2 {Elba'U}/dL Normal 0.0-1.0 [facility] Comment on above: Performed By: #### 1 6415797, 9628234, 27452109 #### [facility] [address] [place] [address] WBC Auto Ql (U) Negative Normal Negative [facility] Comment on above: Performed By: #### 1 5139625, 4774941, 69588768 #### [facility] [address] [place] [address] WBC LM.HPF (Urine sed) [#/Area] 0-5 Normal 0-5 [facility] Comment on above: Performed By: #### 1 7194337, 6151249, 83672159 #### [facility] [address] [place] [address] URINALYSISOrdered By: Mario howell on 11-22-2022 Bacteria [...] PM) Normal Negative [facility] UA Auto SS [place].plasma/[place]. RBC (Bld) [Mass ratio] 0-3 /HPF Normal [...] FT UA Auto SS Urobilinogen Qn (U) 0.5142495 {Elba'U}/dL Normal 0.0 - 1.0 EU/dL [facility] UA Auto SS WBC Auto Ql (U) Negative (11/22/22 7:19 PM) Normal Negative [facility] UA Auto SS WBC LM.HPF (Urine sed) [#/Area] 0-5 /HPF Normal 0-5/HPF [facility] UA Auto SS eGFRon 11-22-2022 GFR/1.73 sq M.predicted among non-blacks MDRD (S/P/Bld) [Vol rate/Area] 76 mL/min/1.73 m2 Normal >=59 [facility] Comment on above: Order Comment: Order added by Discern Expert. Result Comment: [employer] Supp[employer] Sales Representative fahad kidney disease could be indicated at eGFR's of less than 60 mL/min/1.73m2. Kidney failure is indicated at less than 15 mL/min/1.73m2. Performed By: #### 2 613832, 2622274, 5154845, 54152361, 3652797, 8083649 #### [facility] [address] [place] [address] CT HEAD WO CONon 08-14-2022 CT HEAD [...] ROC ARNOLD Date: 2022-08-13 22:12 Normal [facility] CBC AUTO DIFFon 08-13-2022 BASO # 0.0 103/ul Normal 0.0-0.1 [facility] Comment on above: Performed By: #### C BC ####[facility] [address] [place] [address]Dr. Umulan Tucker Basophils/100 WBC (Bld) 0.3 % Normal 0.2-2.0 [facility] Comment on above: Performed By: #### C BC ####[facility] [address] [place] [address]Dr. Yilan Tucker EO # 0.0 103/ul Normal 0.0-0.7 [facility] Comment on above: Performed By: #### C BC ####[facility] [address] [place] [address]Dr. Yilan Tucker Eosinophils/100 WBC (Bld) 0.1 % Critically low 0.9-7.0 [facility] Comment on above: Performed By: #### C BC ####[facility] [address] [place], [place] [address]Dr. Douglas Tucker Erythrocyte distribution width (RBC) [Ratio] 12.3 % Normal 11.0-15.0 [facility] Comment on above: Performed By: #### C BC ####[facility] [address] [place], [place] [address]Dr. Douglas Tucker Hematocrit (Bld) [Volume fraction] 41.6 % Normal 36.0-48.0 [facility] Comment on above: Performed By: #### C BC ####[facility] [address] [place], [place] [address]Dr. Umuana Tucker Hemoglobin (Bld) [Mass/Vol] 13.6 g/dL Normal 12.0-16.0 [facility] Comment on above: Performed By: #### C BC ####[facility] [address] [place], [place] [address]Dr. Douglas Tucker IG # 0.05 10e3/ul Critically high 0.00-0.03 [facility] Comment on above: Performed By: #### C BC ####[facility] [address] [place], [place] [address]Dr. Umuana Tucker IG % 0.3 % Normal 0.0-0.5 [facility] Comment on above: Performed By: #### C BC ####[facility] [address] [place], [place] [address]Dr. Douglas Tucker LYMPH # 3.0 103/ul Normal 1.2-3.8 [facility] Comment on above: Performed By: #### C BC ####[facility] [address] [place], [place] [address]Dr. Douglas Tucker Lymphocytes/100 WBC (Bld) 20.9 % Normal 20.5-60.0 [facility] Comment on above: Performed By: #### C BC ####[facility] [address] [place], [place] [address]Dr. Douglas Tucker MANUAL DIFF REQ NO Normal [facility] Comment on above: Performed By: #### C BC ####[facility] [address] [place], [place] [address]Dr. Douglas Tucker MCH (RBC) [Entitic mass] 31.7 pg Normal 26.7-34.0 [facility] Comment on above: Performed By: #### C BC ####[facility] [address] [place] [address]Dr. Douglas Tucker MCHC (RBC) [Mass/Vol] 32.7 g/dL Normal 29.9-35.2 [facility] Comment on above: Performed By: #### C BC ####[facility] [address] [place] [address]Dr. Douglas Tucker MCV (RBC) [Entitic vol] 97.0 fL Normal 81.0-99.0 [facility] Comment on above: Performed By: #### C BC ####[facility] [address] [place], [place] [address]Dr. Douglas Tucker MONO # 1.0 103/ul Critically high 0.3-0.8 [facility] Comment on above: Performed By: #### C BC ####[facility] [address] [place], [place] [address]Dr. Douglas Tucker Monocytes/100 WBC (Bld) 7.2 % Normal 1.7-12.0 [facility] Comment on above: Performed By: #### C BC ####[facility] [address] [place], [place] [address]Dr. Douglas Tucker NEUT # 10.2 103/ul Critically high 1.4-6.5 [facility] Comment on above: Performed By: #### C BC ####[facility] [address] [place], [place] [address]Dr. Douglas Garrett Neutrophils/100 WBC (Bld) 71.2 % Normal 43.0-75.0 [facility] Comment on above: Performed By: #### C BC ####[facility] [address] [place], [place] [address]Dr. Douglas Tucker Platelet mean volume (Bld) [Entitic vol] 10.6 fL Normal 9.5-13.5 [facility] Comment on above: Performed By: #### C BC ####[facility] [address] [place], [place] [address]Zn. Douglas Tucker PLT 229 103/ul Normal 150-450 [facility] Comment on above: Performed By: #### C BC ####[facility] [address] [place] [address]Dr. Douglas Tucker RBC 4.29 106/ul Normal 4.20-5.40 [facility] Comment on above: Performed By: #### C BC ####[facility] [address] [place] [address]Dr. Douglas Tucker WBC 14.4 103/ul Critically high 4.0-11.0 [facility] Comment on above: Performed By: #### C BC ####[facility] [address] [place] [address]DrHernandez Tucker PROF CHEM 8 (BAS METB)on Anion gap [Moles/Vol] 14.6 mmol/L Normal [facility] Comment on above: Performed By: #### T SH, BMP #### [facility] [address] [place] [address] [address] Douglas Tucker Calcium [Mass/Vol] 9.0 mg/dL Normal 8.5-10.1 [facility] Comment on above: Performed By: #### T SH, BMP #### [facility] [address] [place] [address] [address] Douglas Tucker Chloride [Moles/Vol] 107 mmol/L Normal 98-107 [facility] Comment on above: Performed By: #### T SH, BMP #### [facility] [address] [address] [address] Douglas Tucker CO2 [Moles/Vol] 23.2 mmol/L Normal 21.0-32.0 [facility] Comment on above: Performed By: #### T SH, BMP #### [facility] [address] [address] [address] Douglas Tucker Creatinine [Mass/Vol] 0.88 mg/dL Normal 0.55-1.02 [facility] Comment on above: Performed By: #### T SH, BMP #### [facility] [address] [place] [address] Dr. Douglas Tucker EGFR-AF DOMINICAN >60 Normal >=60 [facility] Comment on above: Performed By: #### T SH, BMP #### [facility] [address] [place] [address] Dr. Douglas Tucker EGFR-NON AF DOMINICAN >60 Normal >=60 [facility] Comment on above: Performed By: #### T SH, BMP #### [facility] [address] [place] [address] Dr. Douglas Tucker Glucose [Mass/Vol] 100 mg/dL Normal 74-106 [facility] Comment on above: Performed By: #### T SH, BMP #### [facility] [address] [place] [address] Dr. Douglas Tucker Potassium [Moles/Vol] 3.8 mmol/L Normal 3.5-5.1 [facility] Comment on above: Performed By: #### T ZAIDA, BMP #### [facility] [address] [place] [address] Dr. Douglas Tucker Sodium [Moles/Vol] 141 mmol/L Normal 136-145 [facility] Comment on above: Performed By: #### T SH, BMP #### [facility] [address] [place] [address] Dr. Douglas Tucker Urea nitrogen [Mass/Vol] 10.0 mg/dL Normal 7.0-18.0 [facility] Comment on above: Performed By: #### T SH, BMP #### [facility] [address] [place] [address] Dr. Douglas Tucker Urea nitrogen/Creatinine [Mass ratio] 11.4 mg/mg Normal [facility] Comment on above: Performed By: #### T SH, BMP #### [facility] [address] [place] [address] Dr. Douglas Tucker TSHon 08-13-2022 TSH 0.730 uIU/mL Normal 0.358-3.740 [facility] Comment on above: Performed By: #### T SH, BMP #### [facility] [address] [address] [address] Douglas Tucker Automated erythrocytes count in urine sediment (number/area)Ordered By: Mario Bryangles on 06-14-2022 RBC Auto (Urine sed) [#/Area] None seen [HPF] 0-4 [facility] Automated leukocytes count i n urine sediment (number/area)Ordered By: Mario Bryangles on 06-14-2022 WBC Auto (Urine sed) [#/Area] 20-49 [HPF] 0-4 [facility] Bilirubin Test strip Ql (U)O rdered By: Mario Pee on 06-14-2022 Bilirubin Ql (U) Negative Negative [facility] Color Auto (U)Ordered By: Pee on 06-14-2022 Color (U) Yellow Yellow [facility] Ketones Auto test strip (U) [Mass/Vol]Ordered By: Mario Bryangles on 06-14-2022 Ketones (U) [Mass/Vol] Negative Negative [facility] - UrinalysisOrder ed By: Mario Bryangles on 06-14-2022 Hyaline casts LM Ql (Urine sed) 0-8 [LPF] 0-8 [facility] Nitrite Test strip Ql (U)Ord ered By: Mario Bryangles on 06-14-2022 Nitrite Ql (U) Negative Negative [facility] Protein Auto test strip (U) [Mass/Vol]Ordered By: Mario Bryangles on 06-14-2022 Protein (U) [Mass/Vol] Negative Negative [facility] Specific gravity Auto test s trip (U) [Rel density]Ordered By: Mario Bryangles on 06-14-2022 Specific gravity (U) [Rel density] 1.013 1.001-1.030 [facility] Squamous epithelial cells de tection in urine sediment by light microscopyOrdered By: Mario Bryangles on 06-14-2022 Epithelial cells.squamous LM Ql (Urine sed) 5-9 [HPF] 0-2 [facility] Urine bacteria detection by automated methodOrdered By: Mario Bryangles on 06-14-2022 Bacteria Auto Ql (U) 2+ None Seen [facility] Urine clarity by refractomet ry automatedOrdered By: Mario Glasgow on 06-14-2022 Clarity Refractometry automated (U) Cloudy Clear [facility] Urine culture routineOrdered By: Mario Glasgow on 06-14-2022 Bacteria identified Cx Nom (U) Strep. agalactiae Grp B [facility] Urine glucose measurement by automated test strip (mass/volume)Ordered By: Mario Glasgow on 06-14-2022 Glucose Auto test strip (U) [Mass/Vol] Normal mg/dL Normal [facility] Urine hemoglobin detection b y automated test stripOrdered By: Mario Glasgow on 06-14-2022 Hemoglobin Auto test strip Ql (U) Negative Negative [facility] Urine leukocyte esterase det ection by automated test stripOrdered By: Mario Glasgow on 06-14-2022 Leukocyte esterase Auto test strip Ql (U) 3+ Negative [facility] Urobilinogen Auto test strip (U) [Mass/Vol]Ordered By: Mario Glasgow on 06-14-2022 Urobilinogen (U) [Mass/Vol] Normal mg/dL Normal [facility] pH Auto test strip (U)Ordere d By: Mario Glasgow on 06-14-2022 pH (U) 5.5 [pH] 5.0-9.0 [facility] HCG ( test) IA.rapi d Ql (U)Ordered By: Figueroa Galindo on 05-02-2022 HCG ( test) Ql (U) Negative [facility] CULTURE URINEon 04-25-2022 CULTURE URINE Culture Observations : MODERATE GROWTH OF MIXED GENITAL CRICKET. NO POTENTIAL PATHOGENS SEEN. Normal [facility] Comment on above: Performed By: #### U RCX ####[facility] [address] [place], [place] [address]AzDr. Douglas Tucker ER URINE PROFILEon 3 Bilirubin Ql (U) Negative Normal NEGATIVE [facility] Comment on above: Performed By: #### P REGU, UMICRO, ERUR #### [facility] [address] [place], [place] [address] Dr. Douglas Tucker Clarity (U) SL CLOUDY Abnormal CLEAR [facility] Comment on above: Performed By: #### P REGU, UMICRO, ERUR #### [facility] [address] [place] [address] [address] Douglas Tucker Color (U) YELLOW Normal YELLOW [facility] Comment on above: Performed By: #### P REGU, UMICRO, ERUR #### [facility] [address] [address] [address] Douglas NAVARROD A micrscopic examina tion will be performed if indicated. Normal [facility] Comment on above: Performed By: #### P REGU, UMICRO, ERUR #### [facility] [address] [place] [address] Dr. Douglas Tucker Glucose Ql (U) Negative Normal NEGATIVE [facility] Comment on above: Performed By: #### P REGU, UMICRO, ERUR #### [facility] [address] [place] [address] Dr. Douglas Tucker Hemoglobin Ql (U) SMALL Abnormal NEGATIVE [facility] Comment on above: Performed By: #### P REGU, UMICRO, ERUR #### [facility] [address] [place] [address] Dr. Douglas Tucker Ketones Ql (U) Negative Normal NEGATIVE [facility] Comment on above: Performed By: #### P REGU, UMICRO, ERUR #### [facility] [address] [address] [address] Douglas Tucker LEUKOCYTES Negative Normal NEGATIVE [facility] Comment on above: Performed By: #### P REGU, UMICRO, ERUR #### [facility] [address] [place] [address] [address] Douglas Tucker Nitrite Ql (U) Negative Normal NEGATIVE [facility] Comment on above: Performed By: #### P REGU, UMICRO, ERUR #### [facility] [address] [place] [address] [address] Douglas Tucker pH (U) 6.0 [pH] Normal 5-9 [facility] Comment on above: Performed By: #### P REGU, UMICRO, ERUR #### [facility] [address] [address] [address] Douglas Tucker SPEC GRAVITY >=1.030 Abnormal 1.005-<=1.0 25 [facility] Comment on above: Performed By: #### P REGU, UMICRO, ERUR #### [facility] [address] [place] [address] Dr. Douglas Tucker UA PROTEIN TRACE Normal NEGATIVE/ TRACE [facility] Comment on above: Performed By: #### P REGU, UMICRO, ERUR #### [facility] [address] [place] [address] Dr. Douglas Tucker UR MICRO IND INDICATED Normal [facility] Comment on above: Performed By: #### P REGU, UMICRO, ERUR #### [facility] [address] [place] [address] Dr. Douglas Tucker Urobilinogen Qn (U) 0.2 {Elba'U}/dL Normal 0.2 - 1. 0 [facility] Comment on above: Performed By: #### P REGU, UMICRO, ERUR #### [facility] [address] [place] [address] Dr. Douglas Tucker URon 04-25-2022 , QUAL Negative Normal NEGATIVE [facility] Comment on above: Performed By: #### P REGU, UMICRO, ERUR #### [facility] [address] [place] [address] Dr. Douglas Tucker URINE MICROSCOPIC ONLYon BACTERIA MODERATE Abnormal NONE SEEN [facility] Comment on above: Performed By: #### P REGU, UMICRO, ERUR #### [facility] [address] [place] [address] Dr. Douglas Tucker Bacteria identified Cx Nom (U) INDICATED Normal [facility] Comment on above: Performed By: #### P REGU, UMICRO, ERUR #### [facility] [address] [place] [address] Dr. Douglas Tucker CAST NONE SEEN Normal NONE SEEN [facility] Comment on above: Performed By: #### P REGU, UMICRO, ERUR #### [facility] [address] [address] [address] Douglas Tucker Crystals LM Nom (Urine sed) NONE SEEN Normal NONE SEEN [facility] Comment on above: Performed By: #### P REGU, UMICRO, ERUR #### [facility] [address] [address] [address] Douglas Tucker Epithelial cells LM Ql (Urine sed) MODERATE Abnormal NONE SEEN /RARE [facility] Comment on above: Performed By: #### P REGU, UMICRO, ERUR #### [facility] [address] [address] [address] Douglas Tucker MUCOUS NONE SEEN Normal NONE SEEN [facility] Comment on above: Performed By: #### P REGU, UMICRO, ERUR #### [facility] [address] [address] [address] Douglas Tucker RBC 2-5 Abnormal 0-2 [facility] Comment on above: Performed By: #### P REGU, UMICRO, ERUR #### [facility] [address] [address] [address] Douglas Tucker WBC 0-2 Abnormal NONE SEEN [facility] Comment on above: Performed By: #### P REGU, UMICRO, ERUR #### [facility] [address] [address] [address] Douglas Tucker COVID-19 SOFIAOrdered By: Adal Garcia on 04-23-2022 SARS-CoV+SARS-CoV-2 (COVID-19) Ag IA.rapid Ql (Resp) Negative Negative [facility] Comment on above: This is a duplicate Ruth SARS Antigen (LILLY) result to be used for statistical tracking purpose only. No Panel InformationOrdered By: Rell Garcia on 04-23-2022 SARS Antigen (LFIA) [facility] Activated partial thrombopla stin time (aPTT) in platelet poor plasma by coagulation aOrdered By: Rell Garcia on 04-10-2022 aPTT Coag (PPP) [Time] 31.6 s 25.1-36.5 [facility] Albumin [Mass/volume] in Ser um or PlasmaOrdered By: Rell Garcia on 04-10-2022 Albumin [Mass/Vol] 4.4 g/dL 3.2-5.5 [facility] Automated erythrocytes count in urine sediment (number/area)Ordered By: Rell Garcia on 04-10-2022 RBC Auto (Urine sed) [#/Area] None seen [HPF] 0-4 [facility] Automated leukocytes count i n urine sediment (number/area)Ordered By: Rell Garcia on 04-10-2022 WBC Auto (Urine sed) [#/Area] 20-49 [HPF] 0-4 [facility] Automated urine hyaline cast s count (number/volume)Ordered By: Rell Garcia on 04-10-2022 Hyaline casts Auto (U) [#/Vol] None seen [LPF] 0-1 [facility] Basophils Auto (Bld) [#/Vol] Ordered By: Rell Garcia on 04-10-2022 Basophils (Bld) [#/Vol] 0.0 10*3/uL 0.0-0.2 [facility] Basophils/100 WBC Auto (Bld) Ordered By: Rell Garcia on 04-10-2022 Basophils/100 WBC (Bld) 0.4 % . [facility] Bilirubin Test strip Ql (U)O rdered By: Rell Garcia on 04-10-2022 Bilirubin Ql (U) Negative Negative [facility] Casts typing in urine sedime nt by light microscopyOrdered By: Rell Garcia on 04-10-2022 Casts LM Nom (Urine sed) None seen [LPF] None Seen [facility] Color Auto (U)Ordered By: Adal Garcia on 04-10-2022 Color (U) Yellow Yellow [facility] Creatinine and Glomerular fi ltration rate.predicted panel (S/P/Bld)Ordered By: Rell Garcia on 04-10-2022 Creatinine [Mass/Vol] 0.80 mg/dL 0.44-1.03 [facility] Eosinophils Auto (Bld) [#/Vo l]Ordered By: Rell Garcia on 04-10-2022 Eosinophils (Bld) [#/Vol] 0.3 10*3/uL 0.0-0.45 [facility] Eosinophils/100 WBC Auto (Bl d)Ordered By: Rell Garcia on 04-10-2022 Eosinophils/100 WBC (Bld) 3.6 % . [facility] Erythrocyte distribution wid th Auto (RBC) [Ratio]Ordered By: Rell Garcia on 04-10-2022 Erythrocyte distribution width (RBC) [Ratio] 13.0 % 11.9-15.3 [facility] Estimated glomerular filtrat ion rate (GFR) non- AmericanOrdered By: Rell Garcia on 04-10-2022 GFR/1.73 sq M.predicted among non-blacks MDRD (S/P/Bld) [Vol rate/Area] > 60 mL/Min [facility] Globulin Calc (S) [Mass/Vol] Ordered By: Rell Garcia on 04-10-2022 Globulin (S) [Mass/Vol] 3.1 g/dL [facility] Hematocrit Auto (Bld) [Volum e fraction]Ordered By: Rell Garcia on 04-10-2022 Hematocrit (Bld) [Volume fraction] 44.2 % 34.0-46.4 [facility] Hemoglobin [Mass/volume] in BloodOrdered By: Rell Garcia on 04-10-2022 Hemoglobin (Bld) [Mass/Vol] 14.8 g/dL 11.8-15.4 [facility] Ketones Auto test strip (U) [Mass/Vol]Ordered By: Rell Garcia on 04-10-2022 Ketones (U) [Mass/Vol] Negative Negative Fi [facility] - CoagulationOrde red By: Rell Garcia on 04-10-2022 PT Coag (PPP) [Time] 10.8 s 9.0-12.9 [facility] Leukocytes [#/volume] correc armaan for nucleated erythrocytes in Blood by Automated counOrdered By: Rell Garcia on 04-10-2022 WBC corrected for nucl RBC Auto (Bld) [#/Vol] 8.6 10*3/uL 3.8-11.6 [facility] Lymphocytes Auto (Bld) [#/Vo l]Ordered By: Rell Garcia on 04-10-2022 Lymphocytes (Bld) [#/Vol] 3.0 10*3/uL 1.00-4.8 [facility] Lymphocytes/100 WBC Auto (Bl d)Ordered By: Rell Garcia on 04-10-2022 Lymphocytes/100 WBC (Bld) 35.3 % . [facility] MCH Auto (RBC) [Entitic mass ]Ordered By: Rell Garcia on 04-10-2022 MCH (RBC) [Entitic mass] 31.8 pg 24.7-34.3 [facility] MCHC Auto (RBC) [Mass/Vol]Or dered By: Rell Garcia on 04-10-2022 MCHC (RBC) [Mass/Vol] 33.5 g/dL 32.0-35.0 [facility] MCV Auto (RBC) [Entitic vol] Ordered By: Rell Garcia on 04-10-2022 MCV (RBC) [Entitic vol] 95.0 fL 80-100 [facility] Monocytes Auto (Bld) [#/Vol] Ordered By: Rell Garcia on 04-10-2022 Monocytes (Bld) [#/Vol] 0.6 10*3/uL 0.0-0.8 [facility] Monocytes/100 WBC Auto (Bld) Ordered By: Rell Garcia on 04-10-2022 Monocytes/100 WBC (Bld) 7.0 % . [facility] Neutrophils Auto (Bld) [#/Vo l]Ordered By: Rell Garcia on 04-10-2022 Neutrophils (Bld) [#/Vol] 4.6 10*3/uL 1.8-7.7 [facility] Neutrophils/100 WBC Auto (Bl d)Ordered By: Rell Garcia on 04-10-2022 Neutrophils/100 WBC (Bld) 53.7 % . [facility] Nitrite Test strip Ql (U)Ord ered By: Rell Garcia on 04-10-2022 Nitrite Ql (U) Negative Negative [facility] No Panel InformationOrdered By: Rell Garcia on 04-10-2022 Estimated GFR () > 60 mL/Min [facility] Comment on above: GFR estimated refere nce range: According to KDOQI guidelines, <60 ml/min/1.73m2 is sufficient to diagnose a patient with chronic kidney disease. Pharmacy Creatinine Clearance (Chem N/A [facility] Nucleated erythrocytes [Pres ence] in Blood by Automated countOrdered By: Rell Garcia on 04-10-2022 Nucleated RBC Auto Ql (Bld) 0.1 /100{WBC} 0-0.5 [facility] Platelet mean volume Auto (B ld) [Entitic vol]Ordered By: Rell Garcia on 04-10-2022 Platelet mean volume (Bld) [Entitic vol] 9.1 fL 6.3-10.7 [facility] Platelet poor plasma interna tional normalized ratio (INR) by coagulation assay (relatOrdered By: Rell Garcia on 04-10-2022 INR Coag (PPP) [Relative time] 1.0 {INR} [facility] Comment on above: INR Therapeutic [...] 04-10-2022 Platelets (Bld) [#/Vol] 192 10*3/uL 150-450 [facility] Protein Auto test strip (U) [Mass/Vol]Ordered By: Rell Garcia on 04-10-2022 Protein (U) [Mass/Vol] Negative Negative Fi [facility] Protein [Mass/volume] in Ser um or PlasmaOrdered By: Rell Garcia on 04-10-2022 Protein [Mass/Vol] 7.5 g/dL 6.1-7.9 [facility] RBC Auto (Bld) [#/Vol]Ordere d By: Rell Garcia on 04-10-2022 RBC (Bld) [#/Vol] 4.65 10*6/uL 3.60-5.00 [facility] Serum or plasma alanine venegas otransferase measurement without P-5'-P (enzymatic activiOrdered By: Rell Garcia on 04-10-2022 ALT No additional P-5'-P [Catalytic activity/Vol] 19 U/L 10-60 [facility] Serum or plasma albumin/glob ulin mass ratioOrdered By: Rell Garcia on 04-10-2022 Albumin/Globulin [Mass ratio] 1.4 {ratio} [facility] Serum or plasma alkaline molina sphatase measurement (enzymatic activity/volume)Ordered By: Rell Garcia on 04-10-2022 ALP [Catalytic activity/Vol] 47 U/L 32-92 [facility] Serum or plasma anion gap de terminationOrdered By: Rell Garcia on 04-10-2022 Anion gap [Moles/Vol] 13.2 mmol/L 6.0-15.0 [facility] Serum or plasma aspartate am inotransferase measurement (enzymatic activity/volume)Ordered By: Rell Garcia on 04-10-2022 AST [Catalytic activity/Vol] 18 U/L 10-42 [facility] Serum or plasma calcium liam urement (mass/volume)Ordered By: Rell Garcia on 04-10-2022 Calcium [Mass/Vol] 9.5 mg/dL 8.2-10.2 [facility] Serum or plasma chloride fransisca surement (moles/volume)Ordered By: Rell Garcia on 04-10-2022 Chloride [Moles/Vol] 106 mmol/L 95-114 [facility] Serum or plasma glucose liam urement (mass/volume)Ordered By: Rell Garcia on 04-10-2022 Glucose [Mass/Vol] 88 mg/dL 70-100 [facility] Comment on above: ADA recommended refe rence rangeRandom Glucose Reference Range is dependent on time and content of last meal. Glucose of more than 200 mg/dL in a nonstressed, ambulatory subject supports the diagnosis of Diabetes Mellitus. Serum or plasma potassium me asurement (moles/volume)Ordered By: Rell Garcia on 04-10-2022 Potassium [Moles/Vol] 4.1 mmol/L 3.5-5.1 [facility] Serum or plasma sodium measu rement (moles/volume)Ordered By: Rell Garcia on 04-10-2022 Sodium [Moles/Vol] 134 mmol/L 136-146 [facility] Serum or plasma total biliru bin measurement (mass/volume)Ordered By: Rell Garcia on 04-10-2022 Bilirubin [Mass/Vol] 0.7 mg/dL 0.3-1.2 [facility] Serum or plasma total carbon dioxide measurement (moles/volume)Ordered By: Rell Garcia on 04-10-2022 CO2 [Moles/Vol] 18.9 mmol/L 22.0-30.0 [facility] Serum or plasma urea nitroge n measurement (mass/volume)Ordered By: Rell Garcia on 04-10-2022 Urea nitrogen [Mass/Vol] 14 mg/dL 9-23 [facility] Specific gravity Auto test s trip (U) [Rel density]Ordered By: Rell Garcia on 04-10-2022 Specific gravity (U) [Rel density] 1.016 1.001-1.030 [facility] Squamous epithelial cells de tection in urine sediment by light microscopyOrdered By: Rell Garcia on 04-10-2022 Epithelial cells.squamous LM Ql (Urine sed) 10-19 [HPF] 0-2 [facility] Urine bacteria detection by automated methodOrdered By: Rell Garcia on 04-10-2022 Bacteria Auto Ql (U) 2+ None Seen [facility] Urine clarity by refractomet ry automatedOrdered By: Rell Garcia on 04-10-2022 Clarity Refractometry automated (U) Cloudy Clear [facility] Urine culture routineOrdered By: Rell Garcia on 04-10-2022 Bacteria identified Cx Nom (U) 2 Days [facility] Urine glucose measurement by automated test strip (mass/volume)Ordered By: Rell Garcia on 04-10-2022 Glucose Auto test strip (U) [Mass/Vol] Normal mg/dL Normal [facility] Urine hemoglobin detection b y automated test stripOrdered By: Rell Garcia on 04-10-2022 Hemoglobin Auto test strip Ql (U) Negative Negative [facility] Urine leukocyte esterase det ection by automated test stripOrdered By: Rell Garcia on 04-10-2022 Leukocyte esterase Auto test strip Ql (U) 3+ Negative [facility] Urobilinogen Auto test strip (U) [Mass/Vol]Ordered By: Rell Garcia on 04-10-2022 Urobilinogen (U) [Mass/Vol] Normal mg/dL Normal [facility] WBC Auto (Bld) [#/Vol]Ordere d By: Rell Martinezer on 04-10-2022 WBC (Bld) [#/Vol] 8.6 10*3/uL 3.8-11.6 [facility] pH Auto test strip (U)Ordere d By: Rell Garcia on 04-10-2022 pH (U) 5.5 [pH] 5.0-9.0 [facility] XR ANKLE RT MIN 3 [...] LIZZIE YU Date: 2022-03-28 22:01 Normal [facility] XR SHOULDER LT 2V or >on [...] JASS GRISSOM Date: 2022-02-10 21:41 Normal [facility] CBC AUTO DIFFon 01-28-2022 BASO # 0.0 103/ul Normal 0.0-0.1 [facility] Comment on above: Performed By: #### C BC ####[facility] [address] [address]DrHernandez Douglas Tucker Basophils/100 WBC (Bld) 0.7 % Normal 0.2-2.0 [facility] Comment on above: Performed By: #### C BC ####[facility] [address] [place], [place] [address]Dr. Douglas Tucker EO # 0.1 103/ul Normal 0.0-0.7 [facility] Comment on above: Performed By: #### C BC ####[facility] [address] [place], [place] [address]Dr. Douglas Tucker Eosinophils/100 WBC (Bld) 2.2 % Normal 0.9-7.0 [facility] Comment on above: Performed By: #### C BC ####[facility] [address] [place], [place] [address]Dr. Umuana Tucker Erythrocyte distribution width (RBC) [Ratio] 12.0 % Normal 11.0-15.0 [facility] Comment on above: Performed By: #### C BC ####[facility] [address] [place], [place] [address]Dr. Douglas Tucker Hematocrit (Bld) [Volume fraction] 41.3 % Normal 36.0-48.0 [facility] Comment on above: Performed By: #### C BC ####[facility] [address] [place], [place] [address]Dr. Douglas Tucker Hemoglobin (Bld) [Mass/Vol] 13.7 g/dL Normal 12.0-16.0 [facility] Comment on above: Performed By: #### C BC ####[facility] [address] [place], [place] [address]Dr. Douglas Tucker IG # 0.01 10e3/ul Normal 0.00-0.03 [facility] Comment on above: Performed By: #### C BC ####[facility] [address] [place], [place] [address]Dr. Douglas Tucker IG % 0.2 % Normal 0.0-0.5 [facility] Comment on above: Performed By: #### C BC ####[facility] [address] [place], [place] [address]DrHernandez Tucker LYMPH # 2.1 103/ul Normal 1.2-3.8 [facility] Comment on above: Performed By: #### C BC ####[facility] [address] [address]DrHernandez Tucker Lymphocytes/100 WBC (Bld) 38.5 % Normal 20.5-60.0 [facility] Comment on above: Performed By: #### C BC ####[facility] [address] [address]DrHernandez Tucker MANUAL DIFF REQ NO Normal [facility] Comment on above: Performed By: #### C BC ####[facility] [address] [address]DrHernandez Tucker MCH (RBC) [Entitic mass] 31.9 pg Normal 26.7-34.0 [facility] Comment on above: Performed By: #### C BC ####[facility] [address] [place], [place] [address]DrHernandez Tucker MCHC (RBC) [Mass/Vol] 33.2 g/dL Normal 29.9-35.2 [facility] Comment on above: Performed By: #### C BC ####[facility] [address] [place], [place] [address]DrHernandez Tucker MCV (RBC) [Entitic vol] 96.0 fL Normal 81.0-99.0 [facility] Comment on above: Performed By: #### C BC ####[facility] [address] [place], [place] [address]DrHernandez Tucker MONO # 0.4 103/ul Normal 0.3-0.8 [facility] Comment on above: Performed By: #### C BC ####[facility] [address] [place], [place] [address]DrHernandez Tucker Monocytes/100 WBC (Bld) 7.8 % Normal 1.7-12.0 [facility] Comment on above: Performed By: #### C BC ####[facility] [address] [place], [place] [address]DrHernandez Tucker NEUT # 2.8 103/ul Normal 1.4-6.5 [facility] Comment on above: Performed By: #### C BC ####[facility] [address] [id number] Tucker Neutrophils/100 WBC (Bld) 50.6 % Normal 43.0-75.0 [facility] Comment on above: Performed By: #### C BC ####[facility] [address] [id number] Tucker Platelet mean volume (Bld) [Entitic vol] 10.7 fL Normal 9.5-13.5 [facility] Comment on above: Performed By: #### C BC ####[facility] [address] [address]Dr. Douglas Tucker PLT 189 103/ul Normal 150-450 [facility] Comment on above: Performed By: #### C BC ####[facility] [address] [place], [place] [address]DrHernandez Tucker RBC 4.30 106/ul Normal 4.20-5.40 [facility] Comment on above: Performed By: #### C BC ####[facility] [address] [address]Dr. Douglas Tucker WBC 5.5 103/ul Normal 4.0-11.0 [facility] Comment on above: Performed By: #### C BC ####[facility] [address] [id number]. Douglas Tucker CULTURE URINEon 01-28-2022 CULTURE URINE Culture Observations : MODERATE GROWTH OF MIXED GENITAL CRICKET. NO POTENTIAL PATHOGENS SEEN. Normal [facility] Comment on above: Performed By: #### U RCX ####[facility] [address] [id number]. Douglas Tucker ER URINE PROFILEon 2 Bilirubin Ql (U) Negative Normal NEGATIVE [facility] Comment on above: Performed By: #### U MICRO, ERUR #### [facility] [address] [place], [place] [id number] Dr. Douglas Tucker Clarity (U) CLEAR Normal CLEAR [facility] Comment on above: Performed By: #### U MICRO, ERUR #### [facility] [address] [address] [address] Douglas Tucker Color (U) LT. YELLOW Normal YELLOW [facility] Comment on above: Performed By: #### U MICRO, ERUR #### [facility] [address] [address] [address] Douglas Tucker ERUAHD A micrscopic examina tion will be performed if indicated. Normal [facility] Comment on above: Performed By: #### U MICRO, ERUR #### [facility] [address] [address] [address] Douglas Tucker Glucose Ql (U) Negative Normal NEGATIVE [facility] Comment on above: Performed By: #### U MICRO, ERUR #### [facility] [address] [place] [address] Dr. Douglas Tucker Hemoglobin Ql (U) TRACE-INTACT Abnormal NEGATIVE [facility] Comment on above: Performed By: #### U MICRO, ERUR #### [facility] [address] [address] [address] Douglas Tucker Ketones Ql (U) Negative Normal NEGATIVE [facility] Comment on above: Performed By: #### U MICRO, ERUR #### [facility] [address] [place] [address] Dr. Douglas Tucker LEUKOCYTES TRACE Abnormal NEGATIVE [facility] Comment on above: Performed By: #### U MICRO, ERUR #### [facility] [address] [address] [address] Douglas Tucker Nitrite Ql (U) Negative Normal NEGATIVE [facility] Comment on above: Performed By: #### U MICRO, ERUR #### [facility] [address] [address] [address] Douglas Tucker pH (U) 6.5 [pH] Normal 5-9 [facility] Comment on above: Performed By: #### U MICRO, ERUR #### [facility] [address] [place] [address] Dr. Douglas Tucker SPEC GRAVITY 1.020 Normal 1.005-<=1.0 [facility] Comment on above: Performed By: #### U MICRO, ERUR #### [facility] [address] [address] [address] Douglas Tucker UA PROTEIN Negative Normal NEGATIVE/ TRACE [facility] Comment on above: Performed By: #### U MICRO, ERUR #### [facility] [address] [address] [address] Douglas Tucker UR MICRO IND INDICATED Normal [facility] Comment on above: Performed By: #### U MICRO, ERUR #### [facility] [address] [address] [address] Douglas Tucker Urobilinogen Qn (U) 0.2 {Elba'U}/dL Normal 0.2 - 1. 0 [facility] Comment on above: Performed By: #### U MICRO, ERUR #### [facility] [address] [address] [address] Douglas Tucker PROF 14(COMP METB)on 022 Albumin [Mass/Vol] 3.9 g/dL Normal 3.4-5.0 [facility] Comment on above: Performed By: #### C MP ####[facility] [address] [address]DrHernandez Tucker Albumin/Globulin [Mass ratio] 1.1 {ratio} Normal [facility] Comment on above: Performed By: #### C MP ####[facility] [address] [address]DrHernandez Tucker ALP [Catalytic activity/Vol] 52 U/L Normal 46-116 [facility] Comment on above: Performed By: #### C MP ####[facility] [address] [address]DrHernandez Tucker ALT [Catalytic activity/Vol] 31 U/L Normal 14-59 [facility] Comment on above: Performed By: #### C MP ####[facility] [address] [address]DrHernandez Tucker Anion gap [Moles/Vol] 9.6 mmol/L Normal [facility] Comment on above: Performed By: #### C MP ####[facility] [address] [address]Dr. Douglas Tucker AST [Catalytic activity/Vol] 15 U/L Normal 15-37 [facility] Comment on above: Performed By: #### C MP ####[facility] [address] [place], [place] [address]Dr. Douglas Tucker Bilirubin [Mass/Vol] 0.3 mg/dL Normal 0.2-1.0 [facility] Comment on above: Performed By: #### C MP ####[facility] [address] [place], [place] [address]Dr. Umuana Garrett Calcium [Mass/Vol] 8.6 mg/dL Normal 8.5-10.1 [facility] Comment on above: Performed By: #### C MP ####[facility] [address] [place], [place] [address]Dr. Douglas Tucker Chloride [Moles/Vol] 107 mmol/L Normal 98-107 [facility] Comment on above: Performed By: #### C MP ####[facility] [address] [place], [place] [address]Dr. Douglas Tucker CO2 [Moles/Vol] 27.4 mmol/L Normal 21.0-32.0 [facility] Comment on above: Performed By: #### C MP ####[facility] [address] [place], [place] [address]Dr. Umuana Garrett Creatinine [Mass/Vol] 0.90 mg/dL Normal 0.55-1.02 [facility] Comment on above: Performed By: #### C MP ####[facility] [address] [place], [place] [address]Dr. Douglas Tucker EGFR-AF DOMINICAN >60 Normal >=60 [facility] Comment on above: Performed By: #### C MP ####[facility] [address] [place], [place] [address]Dr. Douglas Tucker EGFR-NON AF DOMINICAN >60 Normal >=60 [facility] Comment on above: Performed By: #### C MP ####[facility] [address] [address]Dr. Douglas Tucker Globulin (S) [Mass/Vol] 3.4 g/dL Normal [facility] Comment on above: Performed By: #### C MP ####[facility] [address] [address]Dr. Douglas Tucker Glucose [Mass/Vol] 90 mg/dL Normal 74-106 [facility] Comment on above: Performed By: #### C MP ####[facility] [address] [address]Dr. Douglas Tucker Potassium [Moles/Vol] 4.0 mmol/L Normal 3.5-5.1 [facility] Comment on above: Performed By: #### C MP ####[facility] [id number] [place], [place] [address]Dr. Douglas Tucker Protein [Mass/Vol] 7.3 g/dL Normal 6.4-8.2 [facility] Comment on above: Performed By: #### C MP ####[facility] Usuvvjlkle[address] [place], [place] [address]Dr. Douglas Tucker Sodium [Moles/Vol] 140 mmol/L Normal 136-145 [facility] Comment on above: Performed By: #### C MP ####[facility] Jrkqrzvlwe23[address] [place], [place] [address]Dr. Douglas Tucker Urea nitrogen [Mass/Vol] 10.0 mg/dL Normal 7.0-18.0 [facility] Comment on above: Performed By: #### C MP ####[facility] Bcfklflxwv[address] [place], [place] [address]Dr. Douglas Tucker Urea nitrogen/Creatinine [Mass ratio] 11.1 mg/mg Normal The [facility] Comment on above: Performed By: #### C MP ####[facility] [address] [place] [address]Dr. Douglas Tucker URINE MICROSCOPIC ONLYon BACTERIA MODERATE Abnormal NONE SEEN The [facility] Comment on above: Performed By: #### U MICRO, ERUR #### [facility] Laboratory [address] [place] [address] Dr. Douglas Tucker Bacteria identified Cx Nom (U) INDICATED Normal The [facility] Comment on above: Performed By: #### U MICRO, ERUR #### [facility] [address] [place] [address] Dr. Douglas Tucker CAST NONE SEEN Normal NONE SEEN The [facility] Comment on above: Performed By: #### U MICRO, ERUR #### [facility] [address] [place] [address] Dr. Douglas Tucker Crystals LM Nom (Urine sed) NONE SEEN Normal NONE SEEN The [facility] Comment on above: Performed By: #### U MICRO, ERUR #### [facility] [address] [place] [address] Dr. Douglas Tucker Epithelial cells LM Ql (Urine sed) FEW Abnormal NONE SEEN /RARE The [facility] Comment on above: Performed By: #### U MICRO, ERUR #### [facility] [address] [place] [address] Dr. Douglas Tucker MUCOUS NONE SEEN Normal NONE SEEN The [facility] Comment on above: Performed By: #### U MICRO, ERUR #### [facility] [address] [place] [address] Dr. Douglas Tucker RBC 0-2 Normal 0-2 [facility] Comment on above: Performed By: #### U MICRO, ERUR #### [facility] [address] [place] [address] Dr. Douglas Tucker WBC 2-5 Abnormal NONE SEEN The [facility] Comment on above: Performed By: #### U MICRO, ERUR #### [facility] [address] [place] [address] Dr. Douglas Tucker US KIDNEYSon 01-28-2022 US [...] RICHELLE BUSH Date: 2022-01-28 13:45 Normal The [facility] CBC AUTO DIFFon 10-29-2021 BASO # 0.1 103/ul Normal 0.0-0.1 [facility] Comment on above: Performed By: #### C BC ####[facility] [address] [place] [address]Dr. Douglas Tucker Basophils/100 WBC (Bld) 0.8 % Normal 0.2-2.0 [facility] Comment on above: Performed By: #### C BC ####[facility] Cclkzkzj[address] [place], [place] [address]Dr. Douglas Tucker EO # 0.2 103/ul Normal 0.0-0.7 [facility] Comment on above: Performed By: #### C BC ####[facility] Rlhv[address]ey[address] [place], [place] [address]Dr. Douglas Tucker Eosinophils/100 WBC (Bld) 3.0 % Normal 0.9-7.0 [facility] Comment on above: Performed By: #### C BC ####[facility] Hadqeovbbu[address] [place], [place] [address]Dr. Douglas Tucker Erythrocyte distribution width (RBC) [Ratio] 12.2 % Normal 11.0-15.0 [facility] Comment on above: Performed By: #### C BC ####[facility] Fumlntfs[address] [place], [place] [address]Dr. Douglas Tucker Hematocrit (Bld) [Volume fraction] 39.9 % Normal 36.0-48.0 [facility] Comment on above: Performed By: #### C BC ####[facility] Arpnqsnecn[address] [place], [place] [address]Dr. Douglas Tucker Hemoglobin (Bld) [Mass/Vol] 13.5 g/dL Normal 12.0-16.0 [facility] Comment on above: Performed By: #### C BC ####[facility] [address] [place] [address]Dr. Douglas Tucker IG # 0.01 10e3/ul Normal 0.00-0.03 [facility] Comment on above: Performed By: #### C BC ####[facility] [address] [place] [address]Dr. Douglas Tucker IG % 0.2 % Normal 0.0-0.5 [facility] Comment on above: Performed By: #### C BC ####[facility] Alutzvcopb[address] [place], [place] [address]Dr. Douglas Tucker LYMPH # 3.0 103/ul Normal 1.2-3.8 [facility] Comment on above: Performed By: #### C BC ####[facility] [address] [place] [address]Dr. Douglas Tucker Lymphocytes/100 WBC (Bld) 44.6 % Normal 20.5-60.0 [facility] Comment on above: Performed By: #### C BC ####[facility] [address] [place] [address]Dr. Douglas Tucker MANUAL DIFF REQ NO Normal The [facility] Comment on above: Performed By: #### C BC ####[facility] [address] [place] [address]Dr. Douglas Tucker MCH (RBC) [Entitic mass] 32.1 pg Normal 26.7-34.0 [facility] Comment on above: Performed By: #### C BC ####[facility] [address] [place] [address]Dr. Douglas Tucker MCHC (RBC) [Mass/Vol] 33.8 g/dL Normal 29.9-35.2 [facility] Comment on above: Performed By: #### C BC ####[facility] Vw[address] [place], [place] [address]Dr. Douglas Tucker MCV (RBC) [Entitic vol] 95.0 fL Normal 81.0-99.0 [facility] Comment on above: Performed By: #### C BC ####[facility] Lfxhvdizph[address] [place], [place] [address]Dr. Douglas Tucker MONO # 0.5 103/ul Normal 0.3-0.8 [facility] Comment on above: Performed By: #### C BC ####[facility] Rccrsrppie[address] [place], [place] [address]Dr. Douglas Tucker Monocytes/100 WBC (Bld) 7.8 % Normal 1.7-12.0 [facility] Comment on above: Performed By: #### C BC ####[facility] Guclctgkcr[address] [place], [place] [address]Dr. Douglas Tucker NEUT # 2.9 103/ul Normal 1.4-6.5 [facility] Comment on above: Performed By: #### C BC ####[facility] Zgwornufrq[address] [place], [place] [address]Dr. Douglas Garrett Neutrophils/100 WBC (Bld) 43.6 % Normal 43.0-75.0 [facility] Comment on above: Performed By: #### C BC ####[facility] Uoxhowyqas[address] [place], [place] [address]DrHernandez Douglas Garrett Platelet mean volume (Bld) [Entitic vol] 11.1 fL Normal 9.5-13.5 [facility] Comment on above: Performed By: #### C BC ####[facility] Uipsvviwvd[address] [place], [place] [address]Dr. Douglas Garrett PLT 188 103/ul Normal 150-450 [facility] Comment on above: Performed By: #### C BC ####[facility] Ubqvaynjqh[address] [place], [place] [address]Dr. Umuana Garrett RBC 4.20 106/ul Normal 4.20-5.40 [facility] Comment on above: Performed By: #### C BC ####[facility] Xkrz[address]gyuw[address] [place], [place] [address]Dr. Douglas Tucker WBC 6.6 103/ul Normal 4.0-11.0 [facility] Comment on above: Performed By: #### C BC ####[facility] Kydxhbir[address] [place], [place] [address]Dr. Douglas Tucker MAGNESIUMon 10-29-2021 Magnesium [Mass/Vol] 2.1 mg/dL Normal 1.8-2.4 [facility] Comment on above: Performed By: #### M G, CMP ####[facility] Mwgtjtjiac[address] [place], [place] [address]Dr. Douglas Tucker PROF 14(COMP METB)on 022 Albumin [Mass/Vol] 3.6 g/dL Normal 3.4-5.0 [facility] Comment on above: Performed By: #### Alyse Yañez, CMP ####[facility] Sojkvxlvvn[address] [place], [place] [address]Dr. Douglas Tucker Albumin/Globulin [Mass ratio] 1.2 {ratio} Normal [facility] Comment on above: Performed By: #### Alyse Yañez, CMP ####[facility] Juzldfms[address] [place], [place] [address]Dr. Douglas Tucker ALP [Catalytic activity/Vol] 61 U/L Normal 46-116 [facility] Comment on above: Performed By: #### Alyse Yañez, CMP ####[facility] Icvzsgplfu[address] [place], [place] [address]Dr. Douglas Tucker ALT [Catalytic activity/Vol] 25 U/L Normal 14-59 [facility] Comment on above: Performed By: #### Alyse Yañez, CMP ####[facility] Zdepoinclp[address] [place], [place] [address]Dr. Douglas Tucker Anion gap [Moles/Vol] 12.4 mmol/L Normal [facility] Comment on above: Performed By: #### Alyse Yañez, CMP ####[facility] Jlfmxfqmsp[address] [place], [place] [address]Dr. Douglas Tucker AST [Catalytic activity/Vol] 23 U/L Normal 15-37 [facility] Comment on above: Performed By: #### Alyse Yañez, CMP ####[facility] Pncwlrp[address] [place], [place] [address]Dr. Douglas Tucker Bilirubin [Mass/Vol] 0.3 mg/dL Normal 0.2-1.0 [facility] Comment on above: Performed By: #### M Javon, CMP ####[facility] Syhhmre[address] [place], [place] [address]Dr. Umuana Tucker Calcium [Mass/Vol] 8.5 mg/dL Normal 8.5-10.1 [facility] Comment on above: Performed By: #### M G, CMP ####[facility] Empflzewdw[address] [place], [place] [address]Dr. Douglas Tucker Chloride [Moles/Vol] 106 mmol/L Normal 98-107 [facility] Comment on above: Performed By: #### Alyse Yañez, CMP ####[facility] Nsxzkyjvwf[address] [place], [place] [address]Dr. Douglas Tucker CO2 [Moles/Vol] 22.8 mmol/L Normal 21.0-32.0 [facility] Comment on above: Performed By: #### Alyse Yañez, CMP ####[facility] Vpyzwmyoqw[address] [place], [place] [address]Dr. Douglas Tucker Creatinine [Mass/Vol] 0.76 mg/dL Normal 0.55-1.02 [facility] Comment on above: Performed By: #### Alyse Yañez, CMP ####[facility] Szazooxlso[address] [place], [place] [address]Dr. Dougals Tucker EGFR-AF DOMINICAN >60 Normal >=60 [facility] Comment on above: Performed By: #### Alyse Yañez, CMP ####[facility] C[address]ex[address] [place], [place] [address]Dr. Douglas Tucker EGFR-NON AF DOMINICAN >60 Normal >=60 [facility] Comment on above: Performed By: #### M G, CMP ####[facility] Cdoamkrxdu[address] [place], [place] [address]Dr. Douglas Tucker Globulin (S) [Mass/Vol] 3.0 g/dL Normal [facility] Comment on above: Performed By: #### M Javon, CMP ####[facility] [address] [place] [id number]. Douglas Tucker Glucose [Mass/Vol] 110 mg/dL Critically high 74-106 [facility] Comment on above: Performed By: #### M G, CMP ####[facility] Fciludzubq[address] [place], [place] [address]Dr. Douglas Tucker Potassium [Moles/Vol] 4.2 mmol/L Normal 3.5-5.1 [facility] Comment on above: Performed By: #### M G, CMP ####[facility] Htxsipywyw[address] [place], [place] [address]Dr. Douglas Tucker Protein [Mass/Vol] 6.6 g/dL Normal 6.4-8.2 [facility] Comment on above: Performed By: #### M G, CMP ####[facility] Ogjcszzchx[address] [place], [place] [address]Dr. Douglas Tucker Sodium [Moles/Vol] 137 mmol/L Normal 136-145 [facility] Comment on above: Performed By: #### M G, CMP ####[facility] S[address]juucqk[address] [place], [place] [address]Dr. Douglas Tucker Urea nitrogen [Mass/Vol] 12.0 mg/dL Normal 7.0-18.0 [facility] Comment on above: Performed By: #### M G, CMP ####[facility] Ms[address]qjgnzq[address] [place], [place] [address]Dr. Douglas Tucker Urea nitrogen/Creatinine [Mass ratio] 15.8 mg/mg Normal [facility] Comment on above: Performed By: #### M G, CMP ####[facility] M[address]ymxmt[address] [place], [place] [address]Dr. Douglas Tucker ALLIED HEALTHon 03-07-2021 ALLIED [facility]ALTH HNO ID: [id number] Author: RT Pati(R) Service: Radiology Author Type: [...] RT Pati(R) March 07, 2021 5:32 PM [facility] CNDSon 03-07-2021 [facility] HNO ID: [id number] Author: Rosalie Haile MD Service: ? Author [...] answered Last EKG reviewed [facility] Labs reviewed No results [...] known as: ZANAFLEX Rosalie Haile MD Normal [facility] HISTORY PHYSICALon HISTORY PHYSICAL HNO ID: [id number] Author: Rosalie Haile MD Service: ? Author Type: Physician Type: HANDP Filed: 03/11/2021 7:31 PM Note Text: [facility] ENRIQUE[facility] : 1990 AGE: 31 SEX: F CSN: [id number] [facility] [place] LOCATION: [facility] ATTENDING PHYSICIAN: Rosalie Haile M.D. ? ? DATE OF SERVICE: 03/06/2021 ? ? SUBJECTIVE: Patient with a history of diabetes and obesity. Admitted to the hospital with seizure. ?This is a 31 year old female with a hx of seizures, diabetes, anxiety, and conversion disorder, who reportedly had a seizure at the [place] [facility]. She and her boyfriend had just [...] 25 mL syringe 12.5 g INTRAVENOUS PRN Adoins Mahoney MD - insulin lispro injection (rapid [...] 40.1 WBC (k/uL) Date Value 03/06/[address] [facility] consultants notes reviewed Most recent images [...] goiter No carotid bruits. Rosalie Haile MD [facility] MRI BRAIN WO IVCONon 021 MRI [...] Routine noncontrast MRI protocol including diffusion images. Tnyi-az-ovxfem MRV brain with post-processing performed at the [...] intravenous contrast. Patent major dural venous sinuses. [facility] Transcribe Date/Time: Mar 07 2021 5:46P Dictated by : HOLLAND MUELLER MD This examination was interpreted and the report reviewed and electronically signed by: HOLLAND MUELLER MD on Mar 07 2021 5:51PM EST [id number] Normal [facility] MRV BRAIN WO IVCONon 021 MRV [...] Routine noncontrast MRI protocol including diffusion images. Nzhy-xx-dfugqi MRV brain with post-processing performed at the [...] intravenous contrast. Patent major dural venous sinuses. Sagger Filler: MAVERICK Transcribe Date/Time: Mar 07 2021 5:46P Dictated by : HOLLAND MUELLER MD This examination was interpreted and the report reviewed and electronically signed by: HOLLAND MUELLER MD on Mar 07 2021 5:51PM EST [id number] [facility] NURSING PROGon 03-07-2021 NURSING PROG HNO ID: [id number] Author: Toya Pompa RN Service: ? Author Type: Registered Nurse Type: Nursing Progress Note Filed: 03/07/2021 11:35 PM Note Text: Nursing Progress Note Patient Name: Sully Enriquez Patient Location: Pt discharged, transferred via wheelchair to exit where was picking her up. IV/tele removed. All belongings accounted for. This note was completed by: Toya Pompa [facility] NURSING PROG HNO ID: [id number] Author: Cordelia Faye RN Service: Nursing Author [...] This note was completed by: Cordelia Faye [facility] NURSING PROG HNO ID: [id number] Author: Breanne Reis RN Service: ? Author [...] This note was completed by: Smiley Raymundo [facility] NURSING PROG HNO ID: [id number] Author: Yoselin Cui RN Service: Nursing Author [...] sheets. This note was completed by: Yoselin [facility]21 [facility] HNO ID: [id number] Author: HAWA Marion) Service: ? Author Type: [...] Sanam(R) March 06, 2021 2:45 AM Normal [facility] CBC and Differentialon 03-06 Abs Baso 0.04 k/uL Normal <0.11 [facility] Comment on above: Performed By: #### C K, ALCO, CBCDIF, CMP, MG1 ####[place] [id number] [place], [place] [phone] Abs Hunt 0.55 k/uL Normal <0.87 [facility] Comment on above: Performed By: #### C K, ALCO, CBCDIF, CMP, MG1 ####[place] [phone] Abs Neut 3.17 k/uL Normal 1.45-7.50 [facility] Comment on above: Performed By: #### C K, ALCO, CBCDIF, CMP, MG1 ####[place] [phone] Absolute nRBC <0.01 Normal <0.01 [facility] Comment on above: Performed By: #### C K, ALCO, CBCDIF, CMP, MG1 ####[place] [phone] Basophils/100 WBC (Bld) 0.6 % Normal [facility] Comment on above: Performed By: #### C K, ALCO, CBCDIF, CMP, MG1 ####[address] DTYPE Auto Diff Normal [facility] Comment on above: Performed By: #### C K, ALCO, CBCDIF, CMP, MG1 ####[place] [id number] Eosinophils (Bld) [#/Vol] 0.17 10*3/uL Normal <0.46 [facility] Comment on above: Performed By: #### C K, ALCO, CBCDIF, CMP, MG1 ####[address] Eosinophils/100 WBC (Bld) 2.5 % Normal [facility] Comment on above: Performed By: #### C K, ALCO, CBCDIF, CMP, MG1 ####[address] Erythrocyte distribution width (RBC) [Ratio] 12.0 % Normal 11.5-15.0 [facility] Comment on above: Performed By: #### C K, ALCO, CBCDIF, CMP, MG1 ####[address] Hematocrit (Bld) [Volume fraction] 40.1 % Normal 36.0-46.0 [facility] Comment on above: Performed By: #### C K, ALCO, CBCDIF, CMP, MG1 ####[place] [phone] Hemoglobin (Bld) [Mass/Vol] 13.2 g/dL Normal 11.5-15.5 [facility] Comment on above: Performed By: #### C K, ALCO, CBCDIF, CMP, MG1 ####[place] [phone] Lymphocytes (Bld) [#/Vol] 2.85 10*3/uL Normal 1.00-4.00 [facility] Comment on above: Performed By: #### C K, ALCO, CBCDIF, CMP, MG1 ####[place] [phone] Lymphocytes/100 WBC (Bld) 42.0 % Normal [facility] Comment on above: Performed By: #### C K, ALCO, CBCDIF, CMP, MG1 ####[place] [phone] MCH 31.8 pG Normal 26.0-34.0 [facility] Comment on above: Performed By: #### C K, ALCO, CBCDIF, CMP, MG1 ####[place] [phone] MCHC (RBC) [Mass/Vol] 32.9 g/dL Normal 30.5-36.0 [facility] Comment on above: Performed By: #### C K, ALCO, CBCDIF, CMP, MG1 ####[place] [phone] MCV (RBC) [Entitic vol] 96.6 fL Normal 80.0-100.0 [facility] Comment on above: Performed By: #### C K, ALCO, CBCDIF, CMP, MG1 ####[phone] Monocytes/100 WBC (Bld) 8.1 % Normal [facility] Comment on above: Performed By: #### C K, ALCO, CBCDIF, CMP, MG1 ####[place] [phone] Neutrophils/100 WBC (Bld) 46.8 % Normal [facility] Comment on above: Performed By: #### C K, ALCO, CBCDIF, CMP, MG1 ####[place] [phone] NRBCs 0.0 /100 WBC Normal 0 [facility] Comment on above: Performed By: #### C K, ALCO, CBCDIF, CMP, MG1 ####[place] [phone] Platelet mean volume (Bld) [Entitic vol] 10.7 fL Normal 9.0-12.7 [facility] Comment on above: Performed By: #### C K, ALCO, CBCDIF, CMP, MG1 ####[place] [phone] Platelets (Bld) [#/Vol] 183 10*3/uL Normal 150-400 [facility] Comment on above: Performed By: #### C K, ALCO, CBCDIF, CMP, MG1 ####[place] [phone] RBC (Bld) [#/Vol] 4.15 10*6/uL Normal 3.90-5.20 [facility] Comment on above: Performed By: #### C K, ALCO, CBCDIF, CMP, MG1 ####[place] [phone] WBC (Bld) [#/Vol] 6.79 10*3/uL Normal 3.70-11.00 [facility] Comment on above: Performed By: #### C K, ALCO, CBCDIF, CMP, MG1 ####[place] [phone] CKon 03-06-2021 CK [Catalytic activity/Vol] 103 U/L Normal 30-220 [facility] Comment on above: Performed By: #### C K, ALCO, CBCDIF, CMP, MG1 ####[facility] [place], [place] [phone] CONSULTon 03-06-2021 CONSULT HNO ID: [id number] Author: Saravanan Yancey MD Service: Neurology General Author Type: Resident Type: Consults Filed: 03/06/2021 5:10 PM Note Text: ----- Attestation signed by Tim Sanches MD at 03/06/2021 9:16 PM [facility] STAFF PHYSICIAN NOTE OF PERSONAL INVOLVEMENT IN [...] her had just deplaned coming back from [place] x 3 days and she had not [...] [place] who is a family doctor in [facility], and she has noted hx of [...] Facility-Administered Medica (more content not included)... Normal [facility] CT BRAIN WO IVCONon 03-06-20 21 [...] Other: No depressed skull fracture is seen. Pneumatic Tube Fitter (topogram) images: Non-diagnostic. IMPRESSION: No CT evidence of an acute intracranial abnormality. Other: details above. Sagger Filler: MAVERICK Transcribe Date/Time: Mar 06 2021 3:13A Dictated by : JENN MORENO MD This examination was interpreted and the report reviewed and electronically signed by: JENN MORENO MD on Mar 06 2021 3:15AM EST [id number] Normal [facility] Comp Metabolic Panelon 03-06 Albumin [Mass/Vol] 4.6 g/dL Normal 3.5-5.0 [facility] Comment on above: Performed By: #### C K, ALCO, CBCDIF, CMP, MG1 ####[place] [phone] ALP [Catalytic activity/Vol] 67 U/L Normal 34-123 [facility] Comment on above: Performed By: #### C K, ALCO, CBCDIF, CMP, MG1 ####[facility] [place], [place] [phone] ALT [Catalytic activity/Vol] 15 U/L Normal 0-45 [facility] Comment on above: Performed By: #### C K, ALCO, CBCDIF, CMP, MG1 ####[address] [phone] Anion gap [Moles/Vol] 10 mmol/L Normal 9-18 [facility] Comment on above: Performed By: #### C K, ALCO, CBCDIF, CMP, MG1 ####[address] [phone] AST [Catalytic activity/Vol] 15 U/L Normal 7-40 [facility] Comment on above: Performed By: #### C K, ALCO, CBCDIF, CMP, MG1 ####[place] [phone] Bilirubin [Mass/Vol] 0.2 mg/dL Normal 0.2-1.3 [facility] Comment on above: Performed By: #### C K, ALCO, CBCDIF, CMP, MG1 ####[place] [phone] Calcium [Mass/Vol] 9.3 mg/dL Normal 8.5-10.5 [facility] Comment on above: Performed By: #### C K, ALCO, CBCDIF, CMP, MG1 ####[place] [phone] Chloride [Moles/Vol] 106 mmol/L Normal 98-110 [facility] Comment on above: Performed By: #### C K, ALCO, CBCDIF, CMP, MG1 ####[place] [phone] CO2 [Moles/Vol] 25 mmol/L Normal 23-32 [facility] Comment on above: Performed By: #### C K, ALCO, CBCDIF, CMP, MG1 ####[place] [phone] Creatinine [Mass/Vol] 0.99 mg/dL Normal 0.70-1.40 [facility] Comment on above: Performed By: #### C K, ALCO, CBCDIF, CMP, MG1 ####[place] [phone] eGFR- Amer. >60 Normal >60 [facility] Comment on above: Performed By: #### C K, ALCO, CBCDIF, CMP, MG1 ####[place] [phone] eGFR-All Other Races >60 Normal >60 [facility] Comment on above: Result Comment: eGFR (Estimated GFR) Units of measure: mL/min/1.73 meters squared eGFR is derived from the reexpressed MDRD Study equation using the following parameters: serum creatinine, age, gender and race. The creatinine assay has been calibrated to be traceable to IDWI. An eGFR <60 mL/min/1.73m2 for >3 months is consistent with chronic kidney disease. Refer to KDOQI guidelines for clinical interpretation. In patients with unstable renal function, e.g. those with acute kidney injury, the eGFR may not accurately reflect actual GFR. Performed By: #### C K, ALCO, CBCDIF, CMP, MG1 ####[place] [phone] Glucose [Mass/Vol] 103 mg/dL High 65-100 [facility] Comment on above: Performed By: #### C K, ALCO, CBCDIF, CMP, MG1 ####[place] [phone] Potassium [Moles/Vol] 3.9 mmol/L Normal 3.5-5.0 [facility] Comment on above: Performed By: #### C K, ALCO, CBCDIF, CMP, MG1 ####[place] [phone] Protein [Mass/Vol] 7.1 g/dL Normal 6.0-8.4 [facility] Comment on above: Performed By: #### C K, ALCO, CBCDIF, CMP, MG1 ####[place] [phone] Sodium [Moles/Vol] 141 mmol/L Normal 132-148 [facility] Comment on above: Performed By: #### C K, ALCO, CBCDIF, CMP, MG1 ####[place] [phone] Urea nitrogen [Mass/Vol] 12 mg/dL Normal 8-25 [facility] Comment on above: Performed By: #### C K, ALCO, CBCDIF, CMP, MG1 ####[address], [place] [phone] ED NOTEon 03-06-2021 ED NOTE HNO ID: [id number] Author: Isabell Olivares RN Service: ? Author Type: Registered Nurse Type: ED Notes Filed: 03/06/2021 9:38 PM Note Text: Report to JUS Reis. [facility] ED NOTE HNO ID: [id number] Author: Isabell Olivares RN Service: ? Author Type: Registered Nurse Type: ED Notes Filed: 03/06/2021 7:16 PM Note Text: Pt up to bedside commode in room with steady gait, pt back to bed, siderails up x 2. [facility] ED NOTE HNO ID: [id number] Author: Isabell Olivares RN Service: ? Author Type: Registered Nurse Type: ED Notes Filed: 03/06/2021 6:32 PM Note Text: Meal tray arrives at the bedside. [facility] ED NOTE HNO ID: [id number] Author: Isabell Olivares RN Service: ? Author Type: Registered Nurse Type: ED Notes Filed: 03/06/2021 6:02 PM Note Text: Pt encouraged to call for dinner tray. Pt reports her headache has improved. [facility] ED NOTE HNO ID: [id number] Author: Isabell Olivares RN Service: ? Author Type: Registered Nurse Type: ED Notes Filed: 03/06/2021 5:18 PM Note Text: Pt states much improvement to her headache, resting in the room with her family, lights dimmed for comfort. [facility] ED NOTE HNO ID: [id number] Author: Isabell Olivares RN Service: ? Author Type: Registered Nurse Type: ED Notes Filed: 03/06/2021 2:48 PM Note Text: Pt reports no improvement in her headache, pt resting with lights off and warm blankets with family at bedside. No new orders at this time. Neurology paged. [facility] ED NOTE HNO ID: [id number] Author: Isabell Olivares RN Service: ? Author Type: Registered Nurse Type: ED Notes Filed: 03/06/2021 2:25 PM Note Text: MRI form faxed to MRI. Pt states she has claustrophobia with MRI, Neurology paged. [facility] ED NOTE HNO ID: [id number] Author: Isabell Olivares RN Service: ? Author Type: Registered Nurse Type: ED Notes Filed: 03/06/2021 2:04 PM Note Text: MRI Screening form given to the patient. [facility] ED NOTE HNO ID: [id number] Author: Isabell Olivares RN Service: ? Author Type: Registered Nurse Type: ED Notes Filed: 03/06/2021 1:56 PM Note Text: Pt assisted onto and off the bedpan. [facility] ED NOTE HNO ID: [id number] Author: Isabell Olivares RN Service: ? Author Type: Registered Nurse Type: ED Notes Filed: 03/06/2021 1:56 PM Note Text: Pt accucheck 100, meal tray at bedside. [facility] ED NOTE HNO ID: [id number] Author: Isabell Olivares RN Service: ? Author Type: Registered Nurse Type: ED Notes Filed: 03/06/2021 1:39 PM Note Text: Neurology at bedside with the patient. [facility] ED NOTE HNO ID: [id number] Author: Isabell Olivares RN Service: ? Author Type: Registered Nurse Type: ED Notes Filed: 03/06/2021 1:26 PM Note Text: Verbal order from Dr. Haile for 25mg PO benadryl [facility] ED NOTE HNO ID: [id number] Author: Isabell Olivares RN Service: ? Author Type: Registered Nurse Type: ED Notes Filed: 03/06/2021 11:20 AM Note Text: Pt resting in bed with seizure pads in place, pt family member sleeping in the bed with the patient, pt family member asked to not be in the bed with the patient for patient safety. [facility] ED NOTE HNO ID: [id number] Author: Jade Forte RN Service: ? Author Type: Registered Nurse Type: ED Notes Filed: 03/06/2021 11:13 AM Note Text: Patient report given to JUS Whyte [facility] ED NOTE HNO ID: [id number] Author: Isabell Olivares RN Service: ? Author Type: Registered Nurse Type: ED Notes Filed: 03/06/2021 11:02 AM Note Text: Assumed care of the patient at this time, received report from JUS Hansen. Plan of Care: - maintain patient comfort, safety and privacy - monitor for changes in condition - bed locked, low position, siderails up - call light within reach [facility] ED NOTE HNO ID: [id number] Author: Jade Forte RN Service: ? Author Type: Registered Nurse Type: ED Notes Filed: 03/06/2021 11:05 AM Note Text: Patient reports continuing to have headache. Spouse also reports had another few second seizure. House paged. [facility] ED NOTE HNO ID: [id number] Author: Jade Forte RN Service: ? Author Type: Registered Nurse Type: ED Notes Filed: 03/06/2021 10:11 AM Note Text: Called lab, breakfast tray ordered [facility] ED NOTE HNO ID: [id number] Author: Jade Forte RN Service: ? Author Type: Registered Nurse Type: ED Notes Filed: 03/06/2021 8:43 AM Note Text: Patient placed on bedpan. Patient and sheets soiled. Patient cleaned, linens changed [facility] ED NOTE HNO ID: [id number] Author: Jade Forte RN Service: ? Author Type: Registered Nurse Type: ED Notes Filed: 03/06/2021 8:31 AM Note Text: Answered patient call light. Patient requesting bedpan. Patient reports patient just had seizure . House paged and returned call. [facility] ED NOTE HNO ID: [id number] Author: Jade Forte RN Service: ? Author Type: Registered Nurse Type: ED Notes Filed: 03/06/2021 7:39 AM Note Text: Patient resting in bed. Declines breakfast at this time. Reports headache and nausea. House paged. [facility] ED NOTE HNO ID: [id number] Author: Jade Forte RN Service: ? Author Type: Registered Nurse Type: ED Notes Filed: 03/06/2021 7:07 AM Note Text: Patient report received from JUS Schuler [facility] ED PROV NOTEon 03-06-2021 ED PROV NOTE HNO ID: [id number] Author: Adeel Mauro MD Service: Hospital Medicine [...] (*) Negative (more content not included)... Normal [facility] Ethanolon 03-06-2021 Ethanol [Mass/Vol] mg/dL Normal <11 [facility] Comment on above: Performed By: #### C K, ALCO, CBCDIF, CMP, MG1 ####[place] [phone] Expedited [id number] 03-06-20 21 SARS-CoV-2 (COVID-19) RNA AZ+probe Ql (Unsp spec) UPPER RESPIRATORY TRACT SWAB Normal [facility] Comment on above: Performed By: #### E XCOVD #### [place] [phone] SARS-CoV-2 (COVID-19) RNA AZ+probe Ql (Unsp spec) Negative for COVID19 (SARS CoV2) by RT-PCR or equivalent method. Normal Negative for COVID19 (SARS CoV2) by RT-PCR or equivalent method. [facility] Comment on above: Result Comment: This test has been authorized by FDA under an Emergency Use Authorization (EUA). Performed By: #### E XCOVD #### [place] [phone] HCG Qual, Urineon 03-06-2021 Beta HCG ( test) Ql (U) Negative Normal Negative [facility] Comment on above: Performed By: #### U HCG ####[place] [phone] HISTORY PHYSICALon HISTORY PHYSICAL HNO ID: [id number] Author: Adonis Mahoney MD Service: General Internal Medicine Author Type: Physician Type: HANDP Filed: 03/06/2021 6:51 AM Note Text: HISTORY AND PHYSICAL EXAMINATION * SERVICE DATE: 03/06/2021 PRIMARY CARE PHYSICIAN: Keli A Spettel, EXAMINATION SCORER Subjective CHIEF COMPLAINT: Seizures HPI: This is a 31 year old female with a hx of seizures, diabetes, anxiety, and conversion disorder, who reportedly had a seizure at the airport [facility]. She and her boyfriend had just [...] March 06, 2021 TIME: 6:08 AM Normal [facility] Magnesiumon 03-06-2021 Magnesium [Mass/Vol] 2.1 mg/dL Normal 1.7-2.6 [facility] Comment on above: Performed By: #### C K, ALCO, CBCDIF, CMP, MG1 ####[place] [id number] [place], [place] [phone] TSHon 03-06-2021 TSH Qn 3.170 m[IU]/L Normal 0.270-4.200 [facility] Comment on above: Result Comment: If [...] E, et al. 2017 Guidelines of the [place] [employer] for the Diagnosis and Management of Thyroid Disease during and the . Thyroid, 2017:27:3:315-389. Performed By: #### T SH ####[place] [id number] [place], [place] [phone] Toxicology Screen,Uron 03-06 Amphetamines, Urine Negative Normal Negative [facility] Comment on above: Result Comment: Cuto ff threshold at 1000 ng/mL. Performed By: #### U TOX2, UAWMIC #### [place] [address] Barbiturates, Urine Negative Normal Negative [facility] Comment on above: Result Comment: Cuto ff threshold at 200 ng/mL. Performed By: #### U TOX2, UAWMIC #### [place] [address] Benzodiazepines, Ur Negative Normal Negative [facility] Comment on above: Result Comment: Cuto ff threshold at 200 ng/mL. Performed By: #### U TOX2, UAWMIC #### [place] [address] Cannabinoids, Urine Negative Normal Negative [facility] Comment on above: Result Comment: Cuto ff threshold at 50 ng/mL. Performed By: #### U TOX2, UAWMIC #### [place] [address] Cocaine, Urine Negative Normal Negative [facility] Comment on above: Result Comment: Cuto ff threshold at 300 ng/mL. Performed By: #### U TOX2, UAWMIC #### [place] [address] Ethanol, Urine <11 Normal <11 [facility] Comment on above: Performed By: #### U TOX2, UAWMIC #### [place] [address] Opiates, Urine Negative Normal Negative [facility] Comment on above: Result Comment: Cuto ff threshold at 300 ng/mL. Performed By: #### U TOX2, UAWMIC #### [place] [address] Oxycodone, Urine Negative Normal Negative [facility] Comment on above: Result Comment: Cuto [...] on the same specimen through Client Services ([phone]) if contacted within 48 hours of initial testing. [1]Substance Abuse and Mental Health Services Administration (2012). Clinical Drug Testing in Primary Care Technical Assistance Publication Series 32. Department of Health and Human Services, [place], p.10. Performed By: #### U TOX2, UAWMIC #### [place] [address] Phencyclidine, Urine Negative Normal Negative [facility] Comment on above: Result Comment: Cuto ff threshold at 25 ng/mL. Performed By: #### U TOX2, UAWMIC #### [place] [address] Urinalysis with Microscopico n 03-06-2021 Bacteria Rare Critically abnormal Negative [facility] Comment on above: Performed By: #### U TOX2, UAWMIC #### [place] [address] Bilirubin, Urine Negative Normal Negative [facility] Comment on above: Performed By: #### U TOX2, UAWMIC #### [place] [address] Clarity (U) Clear Normal Clear [facility] Comment on above: Performed By: #### U TOX2, UAWMIC #### [place] [address] Color (U) Colorless Critically abnormal Yellow [facility] Comment on above: Performed By: #### U TOX2, UAWMIC #### [place] [address] Comments SEE COMMENT Normal [facility] Comment on above: Result Comment: Micr oscopic Examination Performed Performed By: #### U TOX2, UAWMIC #### [place] [phone] Epithelial cells LM Ql (Urine sed) SEE COMMENT Critically abnormal Negative [facility] Comment on above: Result Comment: Rare Squamous Epithelial Cells Performed By: #### U TOX2, UAWMIC #### [place] [phone] Glucose Ql (U) Negative Normal Negative [facility] Comment on above: Performed By: #### U TOX2, UAWMIC #### [address] Hemoglobin/Blood,Ur Negative Normal Negative [facility] Comment on above: Performed By: #### U TOX2, UAWMIC #### [place] [address] Ketones Ql (U) Negative Normal Negative [facility] Comment on above: Performed By: #### U TOX2, UAWMIC #### [address] Leukest Negative Normal [facility] Comment on above: Performed By: #### U TOX2, UAWMIC #### [place] [phone] Nitrite Ql (U) Negative Normal [facility] Comment on above: Performed By: #### U TOX2, UAWMIC #### [address] pH (U) 7.0 [pH] Normal 5.0-8.0 [facility] Comment on above: Performed By: #### U TOX2, UAWMIC #### [address] Protein, Urine Negative Normal [facility] Comment on above: Performed By: #### U TOX2, UAWMIC #### [place] [phone] RBC Rare Critically abnormal Negative [facility] Comment on above: Performed By: #### U TOX2, UAWMIC #### [facility] [address] [place] [phone] Specific [place], Ur 1.007 Normal 1.005-1.030 [facility] Comment on above: Performed By: #### U TOX2, UAWMIC #### [facility] [address] [place] [phone] Urobilinogen (U) [Mass/Vol] Negative Normal Negative [facility] Comment on above: Performed By: #### U TOX2, UAWMIC #### [place] [phone] WBC Rare Critically abnormal Negative [facility] Comment on above: Performed By: #### U TOX2, UAWMIC #### [place] [phone] Vital Signs Date Time Vital Sign Value Performing Clinician Facility 04-26-2024 14:29-0500 Body height 165.1 cm [facility] 04-26-2024 14:29-0500 Body mass index (BMI) [Ratio] 38.2 kg/m2 [facility] 04-26-2024 14:29-0500 Body temperature 97.3 [degF] [facility] 04-26-2024 14:29-0500 Body weight 104.32 kg [facility] 04-26-2024 14:29-0500 Diastolic blood pressure 102 mm[Hg] [facility] 04-26-2024 14:29-0500 Heart rate 78 /min [facility] 04-26-2024 14:29-0500 Respiratory rate 18 /min [facility] 04-26-2024 14:29-0500 SaO2% (BldA) [Mass fraction] 99 % [facility] 04-26-2024 14:29-0500 Systolic blood pressure 140 mm[Hg] [facility] 03-12-2024 09:52-0500 Body height 165.1 cm Anastasia Mon PA-C Work Phone: [facility] 03-12-2024 09:52-0500 Body mass index (BMI) [Ratio] 38.77 kg/m2 Anastasia Mon PA-C Work Phone: [facility] 03-12-2024 09:52-0500 Body weight 105.69 kg Anastasia Mon PA-C Work Phone: [facility] 02-23-2024 14:38-0500 Body height 165.1 cm DO Mario Pee Work Phone: [facility] 02-23-2024 14:38-0500 Body mass index (BMI) [Ratio] 38.2 kg/m2 DO Mario Pee Work Phone: [facility] 02-23-2024 14:38-0500 Body temperature 96.8 [degF] DO Mario Pee Work Phone: [facility] 02-23-2024 14:38-0500 Body weight 104.32 kg DO Mario Pee Work Phone: [facility] 02-23-2024 14:38-0500 Diastolic blood pressure 72 mm[Hg] DO Mario Pee Work Phone: [facility] 02-23-2024 14:38-0500 Heart rate 84 /min DO Mario Pee Work Phone: [facility] 02-23-2024 14:38-0500 Respiratory rate 16 /min DO Mario Pee Work Phone: [facility] 02-23-2024 14:38-0500 SaO2% (BldA) [Mass fraction] 98 % DO Mario Pee Work Phone: [facility] 02-23-2024 14:38-0500 Systolic blood pressure 120 mm[Hg] DO Mario Pee Work Phone: [facility] 02-17-2024 12:59-0400 Body height 165.1 cm Devaughn Fitch MD Work Phone: [facility] 02-17-2024 12:59-0400 Body mass index (BMI) [Ratio] 38.78 kg/m2 Devaughn Fitch MD Work Phone: [facility] 02-17-2024 12:59-0400 Body weight 105.7 kg Devaughn Fitch MD Work Phone: [facility] 02-17-2024 12:59-0400 Diastolic blood pressure 81 mm[Hg] Devaughn Fitch MD Work Phone: [facility] 02-17-2024 12:59-0400 Heart rate 83 /min Devaughn Fitch MD Work Phone: [facility] 02-17-2024 12:59-0400 SaO2% (BldA) [Mass fraction] 100 % Devaughn Fitch MD Work Phone: [facility] 02-17-2024 12:59-0400 Systolic blood pressure 124 mm[Hg] Devaughn Fitch MD Work Phone: [facility] 01-30-2024 09:33-0400 Body height 165.1 cm Anastasia Mon PA-C Work Phone: [facility] 01-30-2024 09:33-0400 Body mass index (BMI) [Ratio] 38.11 kg/m2 Anastasia Mon PA-C Work Phone: [facility] 01-30-2024 09:33-0400 Body weight 103.87 kg Anastasia Mon PA-C Work Phone: [facility] 01-19-2024 14:27-0400 Body height 165.1 cm Anastasia Mon PA-C Work Phone: [facility] 01-19-2024 14:27-0400 Body mass index (BMI) [Ratio] 38.11 kg/m2 Anastasia Mon PA-C Work Phone: [facility] 01-19-2024 14:27-0400 Body weight 103.87 kg Anastasia Mon PA-C Work Phone: [facility] 01-06-2024 13:45-0400 Body height 165.1 cm [facility] Comment on above: pt reported 01-06-2024 13:45-0400 Body mass index (BMI) [Ratio] 38.11 kg/m2 [facility] 01-06-2024 13:45-0400 Body weight 103.87 kg [facility] Comment on above: pt reported 01-06-2024 13:45-0400 Heart rate 96 /min [facility] Comment on above: per pt counting method 12-26-2023 13:32-0400 Body height 165.1 cm Adele Sutton MD Work Phone: [facility] 12-26-2023 13:32-0400 Body mass index (BMI) [Ratio] 38.61 kg/m2 Adele Sutton MD Work Phone: [facility] 12-26-2023 13:32-0400 Body weight 105.23 kg Adele Sutton MD Work Phone: [facility] 12-26-2023 10:240400 Body height 165.1 cm [facility] 12-26-2023 10:24-0400 Body mass index (BMI) [Ratio] 38.2 kg/m2 [facility] 12-26-2023 10:24-0400 Body temperature 97.3 [degF] [facility] 12-26-2023 10:24-0400 Body weight 104.32 kg [facility] 12-26-2023 10:24-0400 Diastolic blood pressure 88 mm[Hg] [facility] 12-26-2023 10:24-0400 Heart rate 102 /min [facility] 12-26-2023 10:24-0400 SaO2% (BldA) [Mass fraction] 98 % [facility] 12-26-2023 10:24-0400 Systolic blood pressure 122 mm[Hg] [facility] 11-12-2023 14:42-0400 Body height 165.1 cm [facility] 11-12-2023 14:42-0400 Body mass index (BMI) [Ratio] 38.7 kg/m2 [facility] 11-12-2023 14:42-0400 Body temperature 98.4 [degF] [facility] 11-12-2023 14:42-0400 Body weight 105.68 kg [facility] 11-12-2023 14:42-0400 Diastolic blood pressure 90 mm[Hg] [facility] 11-12-2023 14:42-0400 Heart rate 101 /min [facility] 11-12-2023 14:42-0400 Respiratory rate 18 /min [facility] 11-12-2023 14:42-0400 SaO2% (BldA) [Mass fraction] 98 % [facility] 11-12-2023 14:42-0400 Systolic blood pressure 120 mm[Hg] [facility] 10-08-2023 16:13-0400 Body height 165.1 cm [facility] 10-08-2023 16:13-0400 Body mass index (BMI) [Ratio] 39.7 kg/m2 [facility] 10-08-2023 16:13-0400 Body temperature 96.9 [degF] [facility] 10-08-2023 16:13-0400 Body weight 108.4 kg [facility] 10-08-2023 16:13-0400 Diastolic blood pressure 82 mm[Hg] [facility] 10-08-2023 16:13-0400 Heart rate 99 /min [facility] 10-08-2023 16:13-0400 Respiratory rate 16 /min [facility] 10-08-2023 16:13-0400 SaO2% (BldA) [Mass fraction] 97 % [facility] 10-08-2023 16:13-0400 Systolic blood pressure 132 mm[Hg] [facility] 08-27-2023 16:34-0400 Body height 165.1 cm DO Mario Glasgow Work Phone: [facility] 08-27-2023 16:34-0400 Body mass index (BMI) [Ratio] 39.7 kg/m2 DO Mario Pee Work Phone: [facility] 08-27-2023 16:34-0400 Body temperature 97.9 [degF] DO Mario Pee Work Phone: [facility] 08-27-2023 16:34-0400 Body weight 108.4 kg DO Mario Pee Work Phone: [facility] 08-27-2023 16:34-0400 Diastolic blood pressure 80 mm[Hg] DO Mario Pee Work Phone: [facility] 08-27-2023 16:34-0400 Heart rate 70 /min DO Mario Pee Work Phone: [facility] 08-27-2023 16:34-0400 Respiratory rate 18 /min DO Mario Pee Work Phone: [facility] 08-27-2023 16:34-0400 SaO2% (BldA) [Mass fraction] 98 % DO Mario Pee Work Phone: [facility] 08-27-2023 16:34-0400 Systolic blood pressure 130 mm[Hg] DO Mario Pee Work Phone: [facility] 08-07-2023 10:53-0400 Body height 165.1 cm [employer] PA-C Work Phone: [facility] 08-07-2023 10:53-0400 Body weight 105.23 kg [employer] PA-C Work Phone: [facility] 07-07-2023 10:40-0400 Body temperature 98.2 [degF] DO Mario Pee Work Phone: [facility] 07-07-2023 10:40-0400 Diastolic blood pressure 74 mm[Hg] DO Mario Pee Work Phone: [facility] 07-07-2023 10:40-0400 Heart rate 70 /min DO Mario Pee Work Phone: [facility] 07-07-2023 10:40-0400 Respiratory rate 18 /min DO Mario Pee Work Phone: [facility] 07-07-2023 10:40-0400 SaO2% (BldA) [Mass fraction] 98 % DO Mario Pee Work Phone: [facility] 07-07-2023 10:40-0400 Systolic blood pressure 135 mm[Hg] DO Mario Pee Work Phone: [facility] 06-03-2023 18:00-0500 Diastolic blood pressure 75 mm[Hg] DO Mario Pee Work Phone: [facility] 06-03-2023 18:00-0500 Heart rate 72 /min DO Mario Pee Work Phone: [facility] 06-03-2023 18:00-0500 Respiratory rate 16 /min DO Mario Pee Work Phone: [facility] 06-03-2023 18:00-0500 SaO2% (BldA) [Mass fraction] 98 % DO Mario Pee Work Phone: [facility] 06-03-2023 18:00-0500 Systolic blood pressure 116 mm[Hg] DO Mario Pee Work Phone: [facility] 06-03-2023 13:34-0500 Body height 165.1 cm DO Mario Pee Work Phone: [facility] 06-03-2023 13:34-0500 Body temperature 98.2 [degF] DO Mario Pee Work Phone: [facility] 06-03-2023 13:34-0500 Body weight 103.87 kg DO Mario Pee Work Phone: [facility] 04-01-2023 14:00-0500 Body height 165.1 cm DO Mario Pee Work Phone: [facility] 04-01-2023 14:00-0500 Body weight 103.87 kg DO Mario Pee Work Phone: [facility] 04-01-2023 14:00-0500 Diastolic blood pressure 78 mm[Hg] DO Mario Pee Work Phone: [facility] 04-01-2023 14:00-0500 Systolic blood pressure 118 mm[Hg] DO Mario Pee Work Phone: [facility] 01-29-2023 10:15-0400 Body height 165.1 cm Mario Pee Other [employer] Other 01-29-2023 10:15-0400 Body mass index (BMI) [Ratio] 37.27 kg/m2 Mario Pee Other [employer] Other 01-29-2023 10:15-0400 Body temperature 96.9 [degF] Mario Pee Other [facility] Other 01-29-2023 10:15-0400 Body weight 101.61 kg Maroi Pee Other [employer] Other 01-29-2023 10:15-0400 Diastolic blood pressure 70 mm[Hg] Mario Pee Other [facility] Other 01-29-2023 10:15-0400 Respiratory rate 20 /min Mario Pee Other [facility] Other 01-29-2023 10:15-0400 SaO2% (BldA) [Mass fraction] 99 % Mario Pee Other [facility] Other 01-29-2023 10:15-0400 Systolic blood pressure 110 mm[Hg] Mario Pee Other [facility] Other 12-12-2022 15:15-0400 Body height 165.1 cm Mario Pee Other [employer] Other 12-12-2022 15:15-0400 Body mass index (BMI) [Ratio] 37.77 kg/m2 Mario Pee Other [facility] Other 12-12-2022 15:15-0400 Body weight 102.97 kg Mario Pee Other [facility] Other 12-12-2022 15:15-0400 Diastolic blood pressure 60 mm[Hg] Mario Pee Other [facility] Other 12-12-2022 15:15-0400 Respiratory rate 20 /min Mario Pee Other [facility] Other 12-12-2022 15:15-0400 Systolic blood pressure 102 mm[Hg] Mario Pee Other [facility] Other 11-23-2022 01:18-0400 Diastolic blood pressure 83 mm[Hg] Sonam Montoya [facility] 11-23-2022 01:18-0400 Heart rate 64 /min Rondamswalter awaismichael [facility] 11-23-2022 01:18-0400 Mean blood pressure 94 mm[Hg] Kaylinn Dokken [facility] 11-23-2022 01:18-0400 Respiratory rate 19 /min Kaylinn Dokken [facility] 11-23-2022 01:18-0400 SaO2% (BldA) [Mass fraction] 97 % Kaylinn Dokken [facility] 11-23-2022 01:18-0400 Systolic blood pressure 117 mm[Hg] Kaylinn Dokken [facility] 11-23-2022 01:14-0400 Diastolic blood pressure 85 mm[Hg] Kaylinn Dokken [facility] 11-23-2022 01:14-0400 Heart rate 65 /min Kaylinn Dokken [facility] 11-23-2022 01:14-0400 Mean blood pressure 98 mm[Hg] Kaylinn Dokken [facility] 11-23-2022 01:14-0400 Respiratory rate 18 /min Kaylinn Dokken [facility] 11-23-2022 01:14-0400 SaO2% (BldA) [Mass fraction] 98 % Kaylinn Dokken [facility] 11-23-2022 01:14-0400 Systolic blood pressure 124 mm[Hg] Kaylinn Dokken [facility] 11-23-2022 00:00-0400 Body temperature 98.24 [degF] Kaylinn Dokken [facility] 11-23-2022 00:00-0400 Diastolic blood pressure 63 mm[Hg] Sonam Zavalaen [facility] 11-23-2022 00:00-0400 Mean blood pressure 77 mm[Hg] Sonam Montoya [facility] 11-23-2022 00:00-0400 SaO2% (BldA) [Mass fraction] 99 % Sonam Montoya [facility] 11-23-2022 00:00-0400 Systolic blood pressure 105 mm[Hg] Sonam Montoya [facility] 11-22-2022 22:00-0400 Heart rate 63 /min Sonam Montoya [facility] 11-22-2022 20:59-0400 Body temperature 98.06 [degF] Sonam Montoya [facility] 11-22-2022 20:59-0400 Respiratory rate 19 /min Sonam Montoya [facility] 11-14-2022 13:15-0400 Body height 165.1 cm Mario Pee Other [employer] Other 11-14-2022 13:15-0400 Body mass index (BMI) [Ratio] 37.77 kg/m2 Mario Pee Other [facility] Other 11-14-2022 13:15-0400 Body temperature 97.8 [degF] Mario Pee Other [facility] Other 11-14-2022 13:15-0400 Body weight 102.97 kg Mario Pee Other [facility] Other 11-14-2022 13:15-0400 Diastolic blood pressure 76 mm[Hg] Mario Pee Other [facility] Other 11-14-2022 13:15-0400 Respiratory rate 20 /min Mario Pee Other [facility] Other 11-14-2022 13:15-0400 SaO2% (BldA) [Mass fraction] 97 % Mario Pee Other [facility] Other 11-14-2022 13:15-0400 Systolic blood pressure 100 mm[Hg] Mario Pee Other [facility] Other 10-15-2022 14:45-0400 Body height 165.1 cm Mario Pee Other [employer] Other 10-15-2022 14:45-0400 Body mass index (BMI) [Ratio] 38.44 kg/m2 Mario Pee Other [employer] Other 10-15-2022 14:45-0400 Body temperature 96 [degF] Mario Pee Other [employer] Other 10-15-2022 14:45-0400 Body weight 104.78 kg Mario Pee Other [employer] Other 10-15-2022 14:45-0400 Diastolic blood pressure 78 mm[Hg] Mario Pee Other [employer] Other 10-15-2022 14:45-0400 Respiratory rate 20 /min Mario Pee Other [employer] Other 10-15-2022 14:45-0400 SaO2% (BldA) [Mass fraction] 97 % Mario Pee Other [employer] Other 10-15-2022 14:45-0400 Systolic blood pressure 122 mm[Hg] Mario Pee Other [employer] Other 09-17-2022 13:00-0400 Body height 165.1 cm Mario Pee Other [employer] Other 09-17-2022 13:00-0400 Body mass index (BMI) [Ratio] 39.27 kg/m2 Mario Pee Other [employer] Other 09-17-2022 13:00-0400 Body temperature 96.9 [degF] Mario Pee Other [employer] Other 09-17-2022 13:00-0400 Body weight 107.05 kg Mario Pee Other [employer] Other 09-17-2022 13:00-0400 Diastolic blood pressure 78 mm[Hg] Mario Epe Other [employer] Other 09-17-2022 13:00-0400 Respiratory rate 20 /min Mario Pee Other [employer] Other 09-17-2022 13:00-0400 SaO2% (BldA) [Mass fraction] 96 % Mario Pee Other [employer] Other 09-17-2022 13:00-0400 Systolic blood pressure 124 mm[Hg] Mario Pee Other [facility] [employer] Other 05-02-2022 20:23-0500 Body temperature 98 [degF] DO Mario Pee Work Phone: [facility] 05-02-2022 20:23-0500 Diastolic blood pressure 78 mm[Hg] DO Mario Pee Work Phone: [facility] 05-02-2022 20:23-0500 Heart rate 104 /min DO Mario Pee Work Phone: [facility] 05-02-2022 20:23-0500 Respiratory rate 18 /min DO Mario Pee Work Phone: [facility] 05-02-2022 20:23-0500 SaO2% (BldA) [Mass fraction] 96 % DO Mario Pee Work Phone: [facility] 05-02-2022 20:23-0500 Systolic blood pressure 125 mm[Hg] DO Mario Pee Work Phone: [facility] 05-02-2022 16:20-0500 Inhaled oxygen flow rate 3 L/min DO Mario Pee Work Phone: [facility] 05-02-2022 06:52-0500 Body height 165.1 cm DO Mario Pee Work Phone: [facility] 05-02-2022 06:52-0500 Body mass index (BMI) [Ratio] 37.9 kg/m2 DO Mario Pee Work Phone: [facility] 05-02-2022 06:52-0500 Body weight 103.4 kg DO Mario Pee Work Phone: [facility] 04-24-2022 18:09-0500 Body height 165.1 cm DO Mario Pee Work Phone: [facility] 04-24-2022 18:09-0500 Body temperature 99.1 [degF] DO Mario Pee Work Phone: [facility] 04-24-2022 18:09-0500 Body weight 104.2 kg DO Mario Pee Work Phone: [facility] 04-24-2022 18:09-0500 Diastolic blood pressure 88 mm[Hg] DO Mario Pee Work Phone: [facility] 04-24-2022 18:09-0500 Heart rate 99 /min DO Mario Pee Work Phone: [facility] 04-24-2022 18:09-0500 Respiratory rate 19 /min DO Mario Pee Work Phone: [facility] 04-24-2022 18:09-0500 SaO2% (BldA) [Mass fraction] 96 % DO Mario Pee Work Phone: [facility] 04-24-2022 18:09-0500 Systolic blood pressure 124 mm[Hg] DO Mario Pee Work Phone: [facility] 04-17-2022 15:00-0500 Body height 165.1 cm Mario Pee Other [employer] Other 04-17-2022 15:00-0500 Body mass index (BMI) [Ratio] 38.77 kg/m2 Mario Pee Other [employer] Other 04-17-2022 15:00-0500 Body temperature 97.2 [degF] Mario Pee Other [employer] Other 04-17-2022 15:00-0500 Body weight 105.69 kg Mario Pee Other [employer] Other 04-17-2022 15:00-0500 Diastolic blood pressure 82 mm[Hg] Mario Pee Other [employer] Other 04-17-2022 15:00-0500 Respiratory rate 20 /min Mario Pee Other [employer] Other 04-17-2022 15:00-0500 SaO2% (BldA) [Mass fraction] 98 % Mario Pee Other [employer] Other 04-17-2022 15:00-0500 Systolic blood pressure 124 mm[Hg] Mario Pee Other [employer] Other 04-10-2022 08:44-0500 Body height 165.1 cm DO Mario Pee Work Phone: [facility] 04-10-2022 08:44-0500 Body temperature 98.3 [degF] DO Mario Pee Work Phone: [facility] 04-10-2022 08:44-0500 Body weight 105 kg DO Mario Pee Work Phone: [facility] 04-10-2022 08:44-0500 Diastolic blood pressure 82 mm[Hg] DO Mario Pee Work Phone: [facility] 04-10-2022 08:44-0500 Heart rate 80 /min DO Mario Pee Work Phone: [facility] 04-10-2022 08:44-0500 Respiratory rate 16 /min DO Mario Pee Work Phone: [facility] 04-10-2022 08:44-0500 SaO2% (BldA) [Mass fraction] 98 % DO Mario Pee Work Phone: [facility] 04-10-2022 08:44-0500 Systolic blood pressure 125 mm[Hg] DO Mario Pee Work Phone: [facility] 12-12-2021 14:45-0400 Body height 165.1 cm Mario Pee Other [employer] Other 12-12-2021 14:45-0400 Body mass index (BMI) [Ratio] 37.27 kg/m2 Mario Pee Other [employer] Other 12-12-2021 14:45-0400 Body temperature 96.9 [degF] Mario Pee Other [employer] Other 12-12-2021 14:45-0400 Body weight 101.61 kg Mario Pee Other [employer] Other 12-12-2021 14:45-0400 Diastolic blood pressure 80 mm[Hg] Mario Pee Other [employer] Other 12-12-2021 14:45-0400 Respiratory rate 20 /min Mario Pee Other [employer] Other 12-12-2021 14:45-0400 SaO2% (BldA) [Mass fraction] 98 % Mario Pee Other [employer] Other 12-12-2021 14:45-0400 Systolic blood pressure 124 mm[Hg] Mario Pee Other [employer] Other 10-12-2021 09:30-0400 Body height 165.1 cm Mario Pee Other [employer] Other 10-12-2021 09:30-0400 Body mass index (BMI) [Ratio] 37.27 kg/m2 Mario Epe Other [employer] Other 10-12-2021 09:30-0400 Body temperature 98.3 [degF] Mario Pee Other [employer] Other 10-12-2021 09:30-0400 Body weight 101.61 kg Mario Pee Other [facility] Other 10-12-2021 09:30-0400 Diastolic blood pressure 80 mm[Hg] Mario Pee Other [facility] Other 10-12-2021 09:30-0400 Respiratory rate 18 /min Mario Pee Other [facility] Other 10-12-2021 09:30-0400 Systolic blood pressure 110 mm[Hg] Mario Pee Other [facility] Other 09-27-2021 17:00-0400 Body height 165.1 cm Mario Pee Other [facility] Other 09-27-2021 17:00-0400 Body mass index (BMI) [Ratio] 38.1 kg/m2 Mario Pee Other [facility] Other 09-27-2021 17:00-0400 Body temperature 97.6 [degF] Mario Pee Other [employer] Other 09-27-2021 17:00-0400 Body weight 103.87 kg Mario Pee Other [facility] Other 09-27-2021 17:00-0400 Diastolic blood pressure 62 mm[Hg] Mario Pee Other [facility] Other 09-27-2021 17:00-0400 Respiratory rate 20 /min Mario Pee Other [employer] Other 09-27-2021 17:00-0400 SaO2% (BldA) [Mass fraction] 97 % Mario Pee Other [employer] Other 09-27-2021 17:00-0400 Systolic blood pressure 122 mm[Hg] Mario Pee Other [facility] Other 05-30-2021 18:15-0500 Body height 165.1 cm Mario Pee Other [employer] Other 05-30-2021 18:15-0500 Body mass index (BMI) [Ratio] 37.6 kg/m2 Mario Pee Other [facility] Other 05-30-2021 18:15-0500 Body temperature 97.3 [degF] Mario Pee Other [facility] Other 05-30-2021 18:15-0500 Body weight 102.51 kg Mario Pee Other [facility] Other 05-30-2021 18:15-0500 Diastolic blood pressure 82 mm[Hg] Mario Pee Other [facility] Other 05-30-2021 18:15-0500 Respiratory rate 20 /min Mario Pee Other [facility] Other 05-30-2021 18:15-0500 SaO2% (BldA) [Mass fraction] 97 % Mario Pee Other [facility] Other 05-30-2021 18:15-0500 Systolic blood pressure 122 mm[Hg] Mario Pee Other [facility] Other 05-02-2021 18:30-0500 Body height 165.1 cm Mario Pee Other [facility] Other 05-02-2021 18:30-0500 Body mass index (BMI) [Ratio] 36.77 kg/m2 Mario Pee Other [facility] Other 05-02-2021 18:30-0500 Body temperature 97.6 [degF] Mario Pee Other [facility] Other 05-02-2021 18:30-0500 Body weight 100.25 kg Mario Pee Other [facility] Other 05-02-2021 18:30-0500 Diastolic blood pressure 70 mm[Hg] Mario Pee Other [facility] Other 05-02-2021 18:30-0500 Respiratory rate 20 /min Mario Pee Other [facility] Other 05-02-2021 18:30-0500 SaO2% (BldA) [Mass fraction] 96 % Mario Pee Other [facility] Other 05-02-2021 18:30-0500 Systolic blood pressure 118 mm[Hg] Mario Pee Other [employer] Other Encounters Encounter Date Encounter Type Care Provider Facility Start: 04-26-2024 End: 04-26-2024 ambulatory [facility] Work Phone: Start: 04-26-2024 End: 04-26-2024 Patient encounter procedure [facility] Work Phone: Start: 03-12-2024 End: 03-12-2024 Office outpatient visit 40 minutes Anastasia Mon PA-C Work Phone: Breast [place] Comment on above: Mass of right breast , unspecified quadrant (Primary Dx); Nipple discharge; Family history of breast cancer; Fibrocystic breast changes of both breasts Start: 03-12-2024 End: 03-12-2024 Subsequent hospital visit by physician [facility] Comment on above: Mass of right breast , unspecified quadrant [N63.10] Start: 03-12-2024 End: 03-12-2024 ambulatory ANASTASIA SANCHEZ Facility:[facility] Start: 02-23-2024 End: 02-23-2024 ambulatory DO Mario Pee Work Phone: [facility] Work Phone: Start: 02-23-2024 End: 02-23-2024 Patient encounter procedure DO Mario Pee Work Phone: [facility] Work Phone: Start: 02-17-2024 End: 02-17-2024 ambulatory MARIO VELAZQUEZ PEE Facility:[facility] Start: 02-17-2024 End: 02-17-2024 Office consultation new/estab patient 80 min Devaughn Fitch MD Work Phone: Endocrinology Comment on above: Discharge from right nipple (Primary Dx); Obesity, Class II, BMI 35-39.9 Start: 01-30-2024 End: 01-30-2024 Subsequent hospital visit by physician [facility] Comment on above: Mass of right breast , unspecified quadrant [N63.10] Start: 01-30-2024 End: 01-30-2024 ambulatory ANASTASIA SANCHEZ Facility:[facility] Start: 01-30-2024 End: 01-30-2024 Patient encounter procedure Anastasia Mon PA-C Work Phone: [facility] Comment on above: Mass of right breast , unspecified quadrant (Primary Dx); Nipple discharge; Family history of breast cancer Start: 01-19-2024 End: 01-19-2024 Patient encounter procedure Anastasia Mon PA-C Work Phone: [facility] Comment on above: Breast fibroadenoma, right (Primary Dx); Fibrocystic breast changes of both breasts; Post-operative state Start: 01-19-2024 End: 01-19-2024 ambulatory MARIO GLASGOW Facility:[facility] Start: 01-09-2024 End: 01-09-2024 ambulatory Adele Sutton MD Work Phone: [facility] Comment on above: Pain medication Start: 01-09-2024 End: 01-09-2024 E-mail encounter from caregiver Adele Sutton MD Work Phone: [facility] Start: 01-09-2024 End: 01-09-2024 Telephone encounter Adele Sutton MD Work Phone: [facility] Comment on above: Breast Problem Start: 01-08-2024 End: 01-08-2024 ambulatory ADELE SUTTON Facility:[facility] Start: 01-07-2024 Non-patient / Non-visit DO Tasha Glasgow Work Phone: [facility] Work Phone: Start: 01-07-2024 Encounter for other preprocedural examination FRANCHESCA MAN [facility] Start: 01-07-2024 End: 01-07-2024 ambulatory MARIO GLASGOW Facility:[facility] Start: 01-07-2024 End: 01-07-2024 Subsequent hospital visit by physician Procedure Mammo Main Mammography Start: 01-06-2024 End: 01-06-2024 Telephone encounter Camila Russo PA-C Work Phone: Pre Anesthesia Comment on above: Patient Update Start: 01-06-2024 End: 01-06-2024 [facility] Start: 01-06-2024 End: 01-06-2024 ambulatory MARIO GLASGOW Facility:[facility] Start: 01-06-2024 End: 01-06-2024 Anesthesia consultation [facility] Pre Anesthesia Comment on above: Pre-op evaluation (P rimary Dx); Seizure (HCC); Difficult intravenous access; Obesity (BMI 30-39.9); POTS (postural orthostatic tachycardia syndrome); Rash Start: 01-06-2024 End: 01-06-2024 Preprocedural examination done [facility] Work Phone: Start: 01-02-2024 End: 01-02-2024 Telephone encounter Salina Dickinson PA-C Work Phone: Pre Anesthesia Comment on above: Appointment Start: 01-02-2024 ambulatory MARIO GLASGOW Faci lity:[facility] Start: 12-31-2023 End: 12-31-2023 Telephone encounter Tamika Camacho APRN.CNP Work Phone: Pre Anesthesia Comment on above: Missed Appointment Start: 12-26-2023 End: 12-26-2023 Patient encounter status Adele Sutton MD Work Phone: [facility] Start: 12-26-2023 End: 12-29-2023 Telephone encounter Adele Sutton MD Work Phone: [facility] Comment on above: Breast Localization Request Start: 12-26-2023 End: 12-26-2023 ambulatory FRANCHESCA MAN Facility:[facility] Start: 12-26-2023 End: 12-26-2023 Departed Referred DO Mario Glasgow Work Phone: [facility] [place] Work Phone: Start: 12-26-2023 End: 12-26-2023 ambulatory Adele Sutton MD Work Phone: [facility] Work Phone: Comment on above: Breast fibroadenoma, right (Primary Dx); Preop testing Start: 12-26-2023 End: 12-26-2023 Patient encounter procedure [facility] Work Phone: Comment on above: Breast fibroadenoma, right (Primary Dx) Start: 12-17-2023 Emergency department patient visit ANASTASIA HILTON [facility] Start: 12-17-2023 End: 12-17-2023 Emergency department patient visit CAMILLE GUERRERO [facility] Start: 12-17-2023 Non-patient / Non-visit [facility] Work Phone: Start: 11-12-2023 End: 11-12-2023 ambulatory [facility] Work Phone: Start: 11-12-2023 End: 11-12-2023 Patient encounter procedure [facility] Work Phone: Start: 10-08-2023 End: 10-08-2023 ambulatory [facility] Work Phone: Start: 10-08-2023 End: 10-08-2023 Patient encounter procedure [facility] Work Phone: Start: 10-08-2023 End: 10-08-2023 ambulatory VASU HILTON Not Available Start: 09-12-2023 Telephone encounter Franchesca lamas PA-C Work Phone: [facility] Start: 09-11-2023 Telephone encounter Lou Miller RN Work Phone: Mammography Comment on above: Results Start: 09-08-2023 End: 09-08-2023 ambulatory FRANCHESCA MAN Facility:[facility] Start: 09-08-2023 End: 09-08-2023 Subsequent hospital visit by physician Procedure Mammo Main Mammography Comment on above: Fibrocystic breast c hanges of both breasts [N60.11, N60.12] Start: 09-02-2023 Non-patient / Non-visit [facility] Work Phone: Start: 08-27-2023 End: 08-27-2023 ambulatory DO Mario M. Pee Work Phone: [facility] Work Phone: Start: 08-27-2023 End: 08-27-2023 Patient encounter procedure DO Mario Pee Work Phone: [facility] Work Phone: Start: 08-13-2023 Non-patient / Non-visit DO Set h Pee Work Phone: [facility] Work Phone: Start: 08-11-2023 Telephone encounter Franchesca MONTEZC Work Phone: [facility] Start: 08-07-2023 End: 08-07-2023 Subsequent hospital visit by physician [facility] Comment on above: Fibrocystic breast c hanges of both breasts [N60.11, N60.12] Start: 08-07-2023 End: 08-07-2023 ambulatory KELI STRICKLAND Facility:[facility] Start: 08-07-2023 End: 08-07-2023 Patient encounter procedure Franchesca FINNEGAN-C Work Phone: [facility] Comment on above: Mastodynia (Primary Dx); Fibrocystic breast changes of both breasts; Family history of breast cancer; Dense breasts; Nipple discharge Start: 08-06-2023 Orders Only Franchesca MONTEZC Work Phone: [facility] Comment on above: Disorder of breast ( Primary Dx) Start: 07-30-2023 Telephone encounter Franchesca Yañez adams PA-C Work Phone: [facility] Start: 07-25-2023 Non-patient / Non-visit DO Set h Pee Work Phone: [facility] Work Phone: Start: 07-25-2023 Telephone encounter Franchesca Yañez adams PA-C Work Phone: [facility] Start: 07-14-2023 End: 07-14-2023 ambulatory LUCERO H ITZKOWITZ Not Available Start: 07-07-2023 Non-patient / Non-visit DO Set h Pee Work Phone: [facility] Work Phone: Start: 07-07-2023 End: 07-07-2023 Admission to same day surgery center DO Mario Pee Work Phone: [facility] Start: 07-07-2023 End: 07-07-2023 ambulatory DO Mario M. Pee Work Phone: [facility] Work Phone: Start: 07-02-2023 End: 07-02-2023 ambulatory LUCERO H ITZKOWITZ Not Available Start: 07-01-2023 Non-patient / Non-visit DO Set h Pee Work Phone: [facility] Work Phone: Start: 06-30-2023 End: 06-30-2023 ambulatory LUCERO H ITZKOWITZ Not Available Start: 06-30-2023 Non-patient / Non-visit DO Set h Pee Work Phone: [facility] Work Phone: Start: 06-25-2023 End: 06-25-2023 ambulatory RELL GARCIA Not Available Start: 06-18-2023 End: 06-18-2023 ambulatory RELL GARCIA Not Available Start: 06-06-2023 Non-patient / Non-visit DO Set h Pee Work Phone: [facility] [employer] Work Phone: Start: 06-03-2023 End: 06-03-2023 Emergency department patient visit DO Mario Pee Work Phone: [facility] Work Phone: Start: 05-07-2023 End: 05-07-2023 ambulatory Mario Pee Other [facility] Other Start: 05-07-2023 Telephone encounter Mario Pee [facility] Start: 04-01-2023 End: 04-01-2023 Patient encounter procedure DO Mario Pee Work Phone: [facility] Work Phone: Start: 03-21-2023 End: 03-21-2023 ambulatory Mario Pee Other [facility] Other Start: 03-21-2023 Telephone encounter Mario Pee [facility] Start: 02-13-2023 End: 02-13-2023 ambulatory Mario Pee Other [employer] Other Start: 02-13-2023 Telephone encounter Mario Pee [facility] Start: 01-29-2023 End: 01-29-2023 ambulatory Mario Pee Other [facility] Other Start: 01-29-2023 Office outpatient vi sit 15 minutes Mario Pee [facility] Start: 01-21-2023 End: 01-21-2023 ambulatory Mario Pee Other [employer] Other Start: 01-21-2023 Telephone encounter Mario Pee [facility] Start: 01-01-2023 End: 01-02-2023 ambulatory Erin Chavez Facility:[facility] Start: 01-01-2023 End: 01-01-2023 Patient encounter procedure Erin CullenHernandez Vargasjean pierre [facility] Start: 12-20-2022 End: 12-20-2022 ambulatory Mario Pee Other [facility] Other Start: 12-20-2022 Telephone encounter Mario Pee [facility] Start: 12-12-2022 End: 12-12-2022 ambulatory Mario Pee Other [facility] Other Start: 12-12-2022 Office outpatient vi sit 15 minutes Mario Pee [facility] Start: 11-22-2022 End: 11-23-2022 Emergency department patient visit DO Aracelikristensigrid Montoya Facility[place] [place] Start: 11-22-2022 End: 11-23-2022 Emergency department patient visit Sonam Montoya [facility] Start: 11-20-2022 End: 11-20-2022 ambulatory Mario Pee Other [employer] Other Start: 11-20-2022 Telephone encounter Mario Pee [facility] Start: 11-14-2022 End: 11-14-2022 ambulatory Mario Pee Other [employer] Other Start: 11-14-2022 Office outpatient vi sit 15 minutes Mario Pee [facility] Start: 10-15-2022 End: 10-15-2022 ambulatory Mario Pee Other [employer] Other Start: 10-15-2022 Office outpatient vi sit 25 minutes Mario Pee [facility] Start: 10-09-2022 End: 10-09-2022 ambulatory Mario Pee Other [employer] Other Start: 10-09-2022 Telephone encounter Mario Pee [facility] Start: 09-17-2022 End: 09-17-2022 ambulatory Mario Pee Other [employer] Other Start: 09-17-2022 Office outpatient vi sit 15 minutes Mario Pee [facility] Start: 09-17-2022 Telephone encounter Mario Pee [facility] Start: 08-13-2022 End: 08-14-[address] MARIO Cullen PEE Facility:[facility]1 Start: 08-12-2022 End: 08-13-[address] MARIO Cullen PEE Facility:[facility] Start: 08-09-2022 End: 08-09-2022 ambulatory Mario Pee Other [employer] Other Start: 08-09-2022 Telephone encounter Mario Pee [facility] Start: 07-08-2022 End: 07-08-2022 ambulatory Vi Easterwood Other [employer] Other Start: 07-08-2022 Telephone encounter Vi Easterwood [facility] Start: 06-17-2022 End: 06-17-2022 ambulatory Mario Pee Other [employer] Other Start: 06-17-2022 Telephone encounter Mario Pee [facility] Start: 06-14-2022 End: 06-14-2022 ambulatory DO Mario M. Pee Work Phone: [facility] Work Phone: Start: 06-14-2022 End: 06-14-2022 Departed Referred DO Mario Pee Work Phone: [facility]-Lab [place] Work Phone: Start: 06-07-2022 End: 06-07-2022 ambulatory Mario Pee Other [employer] Other Start: 06-07-2022 Telephone encounter Mario Pee [facility] Start: 05-09-2022 End: 05-09-2022 ambulatory Mario Pee Other [employer] Other Start: 05-09-2022 Telephone encounter Mario Pee [facility] Start: 05-06-2022 End: 05-06-2022 ambulatory Mario Pee Other [employer] Other Start: 05-06-2022 Telephone encounter Mario Pee [facility] Start: 05-02-2022 End: 05-02-2022 Admission to same day surgery center DO Mario Pee Work Phone: [facility]-Surgery Center [place] Start: 05-02-2022 End: 05-02-2022 ambulatory DO Mario M. Pee Work Phone: [facility] Work Phone: Start: 04-25-2022 Telephone encounter Mario Pee [facility] Start: 04-25-2022 End: 04-25-2022 Departed Referred DO Mario Pee Work Phone: [facility]-Surgery [facility] [place] Start: 04-25-2022 End: 04-25-2022 ambulatory DO Mario M. Pee Work Phone: [employer] Other Start: 04-24-2022 End: 04-24-2022 Emergency department patient visit DO Mario Pee Work Phone: [facility]-Emergency Room Work Phone: Start: 04-23-2022 End: 04-23-2022 Patient encounter procedure DO Mario Pee Work Phone: [facility]-Pre-Surgical Testing Work Phone: Start: 04-17-2022 End: 04-17-2022 ambulatory Mario Pee Other [employer] Other Start: 04-17-2022 Office outpatient vi sit 15 minutes Mario Pee [facility] Start: 04-17-2022 Telephone encounter Mario Pee [facility] Start: 04-16-2022 End: 04-16-2022 ambulatory Mario Pee Other [employer] Other Start: 04-16-2022 Telephone encounter Mario Pee [facility] Start: 04-10-2022 End: 04-10-2022 ambulatory DO Mario M. Pee Work Phone: [facility] Work Phone: Start: 04-10-2022 End: 04-10-2022 Patient encounter procedure DO Mario Pee Work Phone: [facility]-Pre-Surgical Testing Start: 04-09-2022 End: 04-09-2022 ambulatory Mario Pee Other [employer] Other Start: 04-09-2022 Telephone encounter Mario Pee [facility] Start: 04-08-2022 End: 04-08-2022 ambulatory Mario Pee Other [employer] Other Start: 04-08-2022 Telephone encounter Mario Pee [facility] Start: 03-28-2022 End: 03-30-[address] MARIO Cullen PEE Facility:[facility] Start: 03-06-2022 End: 03-06-2022 ambulatory Mario Pee Other [employer] Other Start: 03-06-2022 Telephone encounter Mario Pee [facility] Start: 02-10-2022 End: 02-10-[address] MARIO Cullen PEE Facility:[facility] Start: 02-04-2022 End: 02-04-2022 ambulatory Mario Pee Other [employer] Other Start: 02-04-2022 Telephone encounter Mario Pee [facility] Start: 01-29-2022 End: 01-29-2022 ambulatory Mario Pee Other [employer] Other Start: 01-29-2022 Telephone encounter Mario Pee [facility] Start: 01-28-2022 End: 01-28-[address] MARTIN M PEE Facility:[facility]1 Start: 12-25-2021 End: 12-25-2021 ambulatory Mario Pee Other [employer] Other Start: 12-25-2021 Telephone encounter Mario Pee [facility] Start: 12-12-2021 End: 12-12-2021 ambulatory Mario Pee Other [employer] Other Start: 12-12-2021 Office outpatient vi sit 15 minutes Mario Pee [facility] Start: 11-26-2021 End: 11-26-2021 ambulatory Mario Pee Other [employer] Other Start: 11-26-2021 Telephone encounter Mario Pee [facility] Start: 11-21-2021 End: 11-21-2021 ambulatory Mario Pee Other [employer] Other Start: 11-21-2021 Telephone encounter Mario Pee [facility] Start: 11-05-2021 End: 11-05-2021 ambulatory Mario Pee Other [employer] Other Start: 11-05-2021 Telephone encounter Mario Pee [facility] Start: 10-29-2021 End: 10-29-[address] MARIO M PEE Facility: Start: 10-23-2021 End: 10-23-2021 ambulatory Mario Pee Other [employer] Other Start: 10-23-2021 Telephone encounter Mario Pee [facility] Start: 10-19-2021 End: 10-19-2021 ambulatory Mario Pee Other [employer] Other Start: 10-19-2021 Telephone encounter Mario Pee [facility] Start: 10-12-2021 End: 10-12-2021 ambulatory Mario Pee Other [employer] Other Start: 10-12-2021 Office outpatient vi sit 15 minutes Mario Pee [facility] Start: 10-12-2021 Telephone encounter Mario Pee [facility] Start: 10-01-2021 End: 10-01-2021 ambulatory Mario Pee Other [employer] Other Start: 10-01-2021 Telephone encounter Mario Pee [facility] Start: 09-27-2021 End: 09-27-2021 ambulatory Mario Pee Other [employer] Other Start: 09-27-2021 Office outpatient vi sit 15 minutes Mario Pee [facility] Start: 09-18-2021 End: 09-18-2021 ambulatory Mario Pee Other [employer] Other Start: 09-18-2021 Telephone encounter Mario Pee [facility] Start: 09-10-2021 End: 09-10-2021 ambulatory Mario Pee Other [employer] Other Start: 09-10-2021 Telephone encounter Mario Pee [facility] Start: 09-05-2021 End: 09-05-2021 Patient encounter procedure Erin Chavez [facility] Start: 08-13-2021 End: 08-13-2021 ambulatory Mario Pee Other [employer] Other Start: 08-13-2021 Telephone encounter Mario Pee [facility] Start: 08-01-2021 End: 08-01-2021 ambulatory Mario Pee Other [employer] Other Start: 08-01-2021 Telephone encounter Mario Pee [facility] Start: 07-06-2021 End: 07-06-2021 ambulatory Vi Benites Other [employer] Other Start: 07-06-2021 Telephone encounter Vi Benites [facility] Start: 06-18-2021 End: 06-18-2021 ambulatory Mario Pee Other [employer] Other Start: 06-18-2021 Telephone encounter Mario Pee [facility] Start: 06-08-2021 End: 06-08-2021 ambulatory Mario Pee Other [employer] Other Start: 06-08-2021 Telephone encounter Mario Pee [facility] Start: 05-30-2021 End: 05-30-2021 ambulatory Mario Pee Other [employer] Other Start: 05-30-2021 Office outpatient vi sit 15 minutes Mario Pee [facility] Start: 05-21-2021 End: 05-21-2021 ambulatory Mario Pee Other [employer] Other Start: 05-21-2021 Telephone encounter Mario Pee [facility] Start: 05-09-2021 End: 05-09-2021 ambulatory Mario Pee Other [employer] Other Start: 05-09-2021 Telephone encounter Mario Pee [facility] Start: 05-08-2021 End: 05-08-2021 ambulatory Mario Pee Other [employer] Other Start: 05-08-2021 Telephone encounter Mario Pee [facility] Start: 05-02-2021 End: 05-02-2021 ambulatory Mario Pee Other [employer] Other Start: 05-02-2021 Office outpatient vi sit 15 minutes Mario Glasgow [facility] Procedures Date Procedure Procedure Detail [...] collection please use: Cortisol PM: 2.3-11.9Performed at: [facility] [id number] Director: Joby Hackett PhD, Phone: [phone] Start: 08-07-2023 Us breast uni real t [...] 11:15 AM EDT Office Visit [facility] [address] [place] [address] Tegan Guerra, MS [address] [place] [address] [facility] Comment on above: Everything Start: 04-26-[address] [facility] Work Phone: Start: 04-05-2024 End: 04-05-2024 Patient encounter procedure 04/05/2024 2:45 PM EST Office Visit Breast Center [address] [address] Anastasia Mon PA-C [address] [place], [place] [id number] 2 month follow up/staff [facility] Comment on above: 2 month follow up/st [facility] Start: 02-17-2024 End: 05-18-2024 INSULIN LIK GR FAC I INSULIN LIK GR FAC I Lab Routine Obesity, Class II, BMI 35-39.9 Expected: 02/17/2024, Expires: 05/18/2024 [facility] Work Phone: Comment on above: Expected: 02/17/2024 , Expires: 05/18/2024 Start: 02-17-2024 End: 05-18-2024 Thyrotropin [Units/volume] in Serum or Plasma THYROID STIMULATING HORMONE Lab Routine Obesity, Class II, BMI 35-39.9 Expected: 02/17/2024, Expires: 05/18/2024 [facility] Comment on above: Expected: 02/17/2024 , Expires: 05/18/2024 Start: 02-17-2024 End: 02-17-2024 Patient encounter procedure 02/17/2024 1:00 PM EDT Office Visit Endocrinology [address] [place] [address] Devaughn Fitch MD [address] [facility] [address] [place] [address] hormone issue Endocrinology Comment on above: hormone issue Start: 01-19-2024 End: 01-19-2024 Patient encounter procedure 01/19/2024 2:45 PM EDT Office Visit Breast Center [address] [place] [address] Anastasia Mon PA-C [address] [place] [address] post op Breast Center Comment on above: post op Start: 01-08-2024 End: 01-08-2024 Admission to same day surgery center Ambulatory Surgery Comment on above: RIGHT ZAYDA EXCISIONA L BIOPSY Start: 01-08-2024 End: 01-08-2024 Exc breast les preop plmt rad marker open 1 les [facility] Start: 01-08-2024 Subsequent hospital visit by physician Ambulatory Surgery Comment on above: Breast fibroadenoma, right [D24.1] Start: 01-08-2024 End: 01-08-2024 Admission to same day surgery center 01/08/2024 7:30 AM EDT - 01/08/2024 8:50 AM EDT Surgery Ambulatory Surgery [address] [place] [address] Adele Sutton MD [address] [place] [address] RIGHT ZAYDA EXCISIONAL BIOPSY Ambulatory Surgery Comment on above: RIGHT ZAYDA EXCISIONA L BIOPSY Start: 01-08-2024 End: 01-08-2024 Exc breast les preop plmt rad marker open 1 les EXCISION BREAST LESION IDENTIFIED BY PREOPERATIVE PLACEMENT RADIOLOGICAL MARKER, OPEN, SINGLE LESION Breast fibroadenoma, right 01/08/2024 7:30 AM EDT [facility] Start: 01-08-2024 Subsequent hospital visit by physician 01/08/2024 7:30 AM EDT Hospital Encounter Ambulatory Surgery [address] [place] [address] Adele Sutton MD [address] [place] [address] Breast fibroadenoma, right [D24.1] Ambulatory Surgery Comment on above: Breast fibroadenoma, right [D24.1] Start: 01-07-2024 End: 01-07-2024 Patient encounter procedure 01/07/2024 9:30 AM EDT Appointment Mammography [address] [address] zayda Mammography Comment on above: zayda Start: 12-31-2023 End: 12-31-2023 Anesthesia consultation 12/31/2023 3:00 PM EDT PAT Pre Anesthesia [address] [place], [place] [id number] virual preop Pre Anesthesia Comment on above: virual preop Start: 12-26-2023 Bacteria identified in Urine by Culture [facility] Start: 12-26-2023 End: 03-26-2024 CBC W Auto Differential panel - Blood COMPLETE BLOOD COUNT AND DIFFERENTIAL Lab Routine Preop testing Expected: 12/26/2023 (Approximate), Expires: 03/26/2024 [facility] Comment on above: Expected: 12/26/2023 (Approximate), Expires: 03/26/2024 Start: 12-26-2023 End: 03-26-2024 Comprehensive metabolic 2000 panel - Serum or Plasma COMPREHENSIVE METABOLIC PANEL Lab Routine Preop testing Expected: 12/26/2023 (Approximate), Expires: 03/26/2024 [facility] Work Phone: Comment on above: Expected: 12/26/2023 (Approximate), Expires: 03/26/2024 Start: 12-21-2023 Covid-19 Vaccine ( season) Covid-19 Vaccine () [facility] Start: 12-21-2023 Covid-19 Vaccine () Covid-19 Vaccine ( season) [facility] Start: 12-21-2023 Influenza vaccination C [facility] Start: 09-16-2023 End: 09-16-2023 Patient encounter procedure 09/16/2023 9:00 AM EDT Office Visit Breast Center [address] [address] Adele Sutton MD [address] [place] [address] New Consult Breast Center Comment on above: New Consult Start: 09-08-2023 End: 09-08-2023 Patient encounter procedure 09/08/2023 2:00 PM EDT Appointment Mammography [address] [address] RIGHT BREAST ULTRASOUND GUIDED CORE BIOPSY Mammography Comment on above: RIGHT BREAST ULTRASO UND GUIDED CORE BIOPSY Start: 08-07-2023 End: 11-06-2023 Thyrotropin [Units/volume] in Serum or Plasma THYROID STIMULATING HORMONE Lab Routine Nipple discharge Expected: 08/07/2023, Expires: 11/06/2023 [facility] Work Phone: Comment on above: Expected: 08/07/2023 , Expires: 11/06/2023 Start: 04-21-2023 Behavioral Health Screening Behavioral Health Screening [facility] Start: 12-20-2022 Covid-19 Vaccine () Covid-19 Vaccine () [facility] Start: 05-02-2022 [facility] Start: 04-25-2022 Total hysterectomy v ia vaginal approach OR Vag Hyster Lap Assist TLH/LAVH (Not Applicable) [facility] Start: 04-24-2022 Blood chemistry [facility] Start: 04-24-2022 Hepatic function panel [facility] Start: 04-24-2022 Lipase measurement [facility] Start: 04-24-2022 [facility] Start: 2019 Screening for malign ant neoplasm of cervix HPV Testing [facility] Start: 02-06-2015 Screening for malign ant neoplasm of cervix Pap Testing [facility] Start: 04-15-2014 Hepatitis B Vaccine (3 of 3 - 19+ 3-dose series) Hepatitis B Vaccine (3 of 3 - 19+ 3-dose series) [facility] Start: 02-06-2013 Screening for malign ant neoplasm of cervix Cervical Cancer Screening [facility] Start: 02-19-2008 Hepatitis B Vaccine (1 of 3 - 19+ 3-dose series) Hepatitis B Vaccine (1 of 3 - 19+ 3-dose series) [facility] Start: 02-19-2008 Urine microalbumin profile DTaP,Tdap,Td Vaccine (1 - Tdap) [facility] Start: 2007 Anxiety Screening Anxiety Screening [facility] Start: 2007 Depression Screening Depression Scre ening [facility] Start: 2007 Hepatitis C screening Hepatitis C Sc reening [facility] Start: 2007 HIV screening HIV Screening [facility] Bacteria identified in Urine by Culture [facility] Bacteria identified in Urine by Culture [facility] Exc breast les preop plmt rad marker open 1 les EXCIS BREAST LES W XRAY MARKER Procedures Routine Breast fibroadenoma, right Ordered: 12/26/2023 [facility] Comment on above: Ordered: 12/26/2023 End: 09-04-2024 MG Breast - bilateral Diagnostic SAJI DIAGNOSTIC BILATERAL Radiology Routine Disorder of breast 1 Occurrences starting 08/06/2023 until 09/04/2024 [facility] Work Phone: Comment on above: 1 Occurrences starti ng 08/06/2023 until 09/04/2024 End: 01-24-2025 MG Guidance for needle localization of Breast - right SAJI NDL LOC W SAJI GD RIGHT Radiology Routine Breast fibroadenoma, right 1 Occurrences starting 12/26/2023 until 01/24/2025 [facility] Comment on above: 1 Occurrences starti ng 12/26/2023 until 01/24/2025 End: 04-11-2025 MR Breast - bilateral WO and W contrast IV MRI BREAST WO/W IVCON BILATERAL Radiology Routine Nipple discharge 1 Occurrences starting 03/12/2024 until 04/11/2025 [facility] Work Phone: Comment on above: 1 Occurrences starti ng 03/12/2024 until 04/11/2025 Patient Education Seizures, Adult ED [facility] Work Phone: Patient referral [facility] Work Phone: SURGICAL PATHOLOGY [facility] Work Phone: Comment on above: Release Upon Max yañez for 1 Occurrences starting 09/08/2023, 1 completed URINE FREE CORTISOL BY LC-MS/MS URINE FREE CORTISOL BY LC-MS/MS Lab Routine Obesity, Class II, BMI 35-39.9 Ordered: 02/17/2024 [facility] Comment on above: Ordered: 02/17/2024 [facility] Immunizations Immunization Date Immunization Notes Care Provider Tiffany workman 2014 influenza virus vaccine, unspecified formulation Franchesca Man PA-C Work Phone: [facility] NEGATED: Highlighted row has not occurred!05-16-2021 SARS-CoV-2 (COVID-19) Ad26 vaccine, recombinant Erin Scott [facility] Payers Date Payer Category Payer Self-pay [id number] 2022 Medicaid [employer] [id number] 2022-Present [phone] [address] [place] [address] Medicaid [id number] 1989 Unknown [id number] 2..[id number] 1989 Unknown [id number] 2.16840.1.326583.3.579.2.593 1989 Unknown [id number] 2.16.840.1.014111.3.579.2.593 1989 Unknown [id number] 2.16.840.1.370843.3.579.2.593 1989 Unknown [id number] 2.16.840.1.393756.3.579.2.593 1989 Unknown [id number] 2.16.840.1.684046.3.579.2.593 1989 Unknown [id number] 2.16.840.1.708604.3.579.2.593 1989 Unknown [id number] 2.16.840.1.922272.3.579.2.727 1989 Unknown [id number] 2.16.840.1.193878.3.579.2.727 1989 Unknown [id number] 2.16.840.1.688970.3.579.2.1259 1989 Unknown [id number] 2.16.840.1.759863.3.579.2.1259 1989 Unknown [id number] 2.16.840.1.686783.3.579.2.1259 1989 Unknown [id number] 2.16.840.1.264589.3.579.2.1259 1989 Unknown [id number] 2.16.840.1.878824.3.579.2.1259 1989 Unknown [id number] 2.16.840.1.847113.3.579.2.1259 1989 Unknown [id number] 2.16.840.1.360407.3.579.2.1259 1959 Medicaid [id number] 1959 Unknown [id number] 2.16.840.1.022834.19 Unknown Regular Auto/Liability [id number] Unknown [id number] 2.16.840.1.230834.3.579.2.531 Unknown [id number] 2.16.840.1.852367.3.579.2.531 Unknown [id number] 2.16.840.1.904433.3.579.2.531 Social History Date Type Detail Facility Start: 05-16-2021 End: 06-03-2023 Tobacco smoking status Never smoked tobacco (finding) [facility] Other Tobacco smoking status Never [facility] Pratik Start: 01-13-2023 End: 08-07-2023 Sex Assigned At Female [facility] Other Start: 1990 Sex Assigned At Female [facility] Tobacco smoking status NHIS Tobacco smoking consumption unknown [facility] Start: 01-13-2023 End: 08-07-2023 History of Social function [facility] Start: 1990 Sex Assigned At Not on file [facility] Start: 12-26-2023 Tobacco use and exposure Smokeless tobacco non-user [facility] Start: 12-26-2023 End: 03-12-2024 Alcoholic beverage intake Current drinker of alcohol (finding) [facility] Start: 12-26-2023 Alcohol Comment socially [facility] Start: 01-06-2024 Alcohol Comment about 1-2 time s per month will have ~2 drinks [facility] Start: 04-26-2024 Sex Female (finding) [facility] NEGATED: Highlighted row [facility] Medical Equipment Procedure Code Equipment Code Equipment Origin al Text Equipment Identifier Dates Ultrasoujnd Clip [id number] Start: 09-08-2023 Comment on above: Description: Hydroma rk coil Ultrasound Zayda [id number] Start: 01-07-2024 Comment on above: Description: Zayda Goals Date Patient Goal Desired Activity /State Functional Status Date Assessment Result Facility 11-22-2022 Functional Status N/A [facility] Clinical Notes 03-06-2021 to 04-26-2024 Sharon Oro, RT(R) - 03/12/2024 10:30 AM Lori Cook RT(R) - 03/12/2024 10:30 AM Anastasia White PA-C - 03/12/2024 10:00 AM EST Note Date & Type Note Facility 04-26-2024 Hospital Discharge instructions Ambulatory OrdersReferral to Neurology Time Frame: 04/26/24, Location: None SelectedReferral to Pain Management Time Frame: 04/26/24, Location: None Selected [facility] Work Phone: 03-12-2024 History of [...] PATIENT PRESENTS WITH AN IMPLANTABLE OR ATTACHED SUPERVISOR DRY PASTE: No RADIOLOGY DEPARTMENT: Mammography PERIPHERAL IV DATA: [...] PATIENT PRESENTS WITH AN IMPLANTABLE OR ATTACHED SUPERVISOR DRY PASTE: No RADIOLOGY DEPARTMENT: Mammography PERIPHERAL IV DATA: Not applicable SIGNED BY: RT Latia(R) March 12, 2024 11:41 AM documented in this encounter [facility] 03-12-2024 Note HNO ID: [id number] Author: SHARON ORO RT(R) Service: ? Author [...] PATIENT PRESENTS WITH AN IMPLANTABLE OR ATTACHED SUPERVISOR DRY PASTE: No RADIOLOGY DEPARTMENT: Mammography PERIPHERAL IV DATA: Not applicable SIGNED BY: RT Tereso(R) March 12, 2024 10:48 AM [facility] 03-12-2024 Note HNO ID: [id number] Author: LORI MCNEILL RT(R) Service: Radiology Author [...] PATIENT PRESENTS WITH AN IMPLANTABLE OR ATTACHED SUPERVISOR DRY PASTE: No RADIOLOGY DEPARTMENT: Mammography PERIPHERAL IV DATA: Not applicable SIGNED BY: RT Latia(R) March 12, 2024 11:41 AM [facility] 03-12-2024 History of Present illness Narrative Images from the original note were not included. [facility] Department of Breast Surgical Oncology [facility] FOLLOW UP HPI: Sully Enriquez is a [...] Strain: Low Risk (12/17/2023) Received from [facility] Overall Financial Resource Strain (CARDIA) Difficulty of Paying Living Expenses: Not hard at all Food Insecurity: No Food Insecurity (12/17/2023) Received from [facility] Hunger Vital Sign Within the past 12 months, you worried that your food would run out before you got the money to buy more.: Never true Transportation Needs: No Transportation Needs (12/17/2023) Received from [facility] Transportation In the past 12 months, has lack of transportation kept you from medical appointments or from getting medications?: No Housing Stability: Low Risk (12/17/2023) Received from [facility] Housing Stability Vital Sign In the last 12 months, was there a time when you did not have a steady place to sleep or slept in a mcfp (including now)?: No FAMILY HISTORY: Family history [...] No history of dysuria, frequency or incontinence 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 As applicable, any other physician, advance practice provider, medical student, or other health professional student that will be observing or involved in the sensitive examination for educational or training purposes was discussed with the Patient or Authorized Court Clerk. The Patient or Authorized Court Clerk has agreed to proceed with the sensitive [...] which included preparing to see the patient, bjzo-xs-wath patient care, completing clinical documentation, obtaining and/or reviewing separately obtained history, performing a medically appropriate examination, counseling and educating the patient/family/caregiver, ordering medications, tests, or procedures, and communicating results to the patient/family/caregiver. Anastasia Mon PA-C documented in this encounter [facility] 03-12-2024 Note HNO ID: [id number] Author: ANASTASIA MON PA-C Service: ? Author Type: Physician Preschool Program Director Type: Progress Notes Filed: 03/15/2024 16:18 Note Text: [facility] [place] Department of Breast Surgical Oncology [facility] FOLLOW UP HPI: Sully Enriquez is a [...] Strain: Low Risk (12/17/2023) Received from [facility] Overall Financial Resource Strain (CARDIA) Difficulty of Paying Living Expenses: Not hard at all Food Insecurity: No Food Insecurity (12/17/2023) Received from [facility] Hunger Vital Sign Within the past 12 months, you worried that your food would run out before you got the money to buy more.: Never true Transportation Needs: No Transportation Needs (12/17/2023) Received from [facility] Tr (more content not included)... [facility] 02-23-2024 Evaluation note Diagnosis Onset Date Resolution Sinusitis noneactive February 23, 2024 2:29pm BMI 38.0-38.9,adult noneactive 2023 2:29pm Pseudoseizures acute April 2:25pm Seizure-like activity acute Apr 2:25pm Spasm of muscle of lower back noneactive April 26 2:25pm Weakness of right leg noneactive Apr 2:25pm Numbness and tingling of right arm noneactive April 26 2:25pm [facility] Work Phone: 1(155) 952-780610-29-2024 Instructions* Patient Instructions* Devaughn Fitch MD - 02/17/2024 1:53 PM EDT 24 hour urine collection: -go to lab to pickle water pump operator container -start collecting urine one morning -flush first urine that morning down toilet, then collect all urine after that in container until the following morning (include first urine of that morning into collection) -keep urine refrigerated during collection -drop off urine after collection is finished and get a blood test done that day documented in this encounterPrem[facility] History of Present illness Narrative* Devaughn Fitch [...] No rash. LABS RESULTS: Recent Data from [facility] Healthcare Related to Prolactin Component 06/18/23 06/24/19 PROLACTIN 5.4 6.6 ASSESSMENT & PLAN: Sully Enriquez is a 33 year old female here for evaluation of nipple discharge. (N64.52) Discharge from right nipple (primary encounter diagnosis) Comment: Unilateral. Normal prolactin. Not hormonally-mediated discharge. Plan: ENDOCRINE CONSULTATION (E66.692) Obesity, Class II, BMI 35-39.9 Comment: Since age 26. Unclear cause. I discuss with Pt about some elements related to nutrition. Will do some tests to r/o some endocrine causes. I offered Pt to establish care in Endocrine Weight Management. She mentioned she would reestablish care in clinic she used to go in [place]. Plan: INSULIN LIK GR FAC I, THYROID STIMULATING HORMONE, URINE FREE CORTISOL BY LC-MS/MS I spent a total of 59 minutes on the date of the service which included preparing to see the patient, ryzv-qu-tazn patient care, completing clinical documentation, obtaining and/or reviewing separately obtained history, performing a medically appropriate examination, counseling and educating the pat ient/family/caregiver, and ordering medications, tests, or procedures. Return to office: TBD Devaughn Fitch MD c.c. Franchesca Man PA-C. documented in this encounterPrem[facility]24 NoteHNO ID: [id number] Author: DEVAUGHN FITCH MD Service: ? Author [...] distr (more content not included)... [facility]10-11-2024 History of Present illness Narrative* [...] PATIENT PRESENTS WITH AN IMPLANTABLE OR ATTACHED SUPERVISOR DRY PASTE: No RADIOLOGY DEPARTMENT: Mammography PERIPHERAL IV DATA: Not applicable SIGNED BY: RT Latia(Jd) January 30, 2024 10:28 AM documented in this encounterPremier Health [facility]10-11-2024 NoteHNO ID: [id number] Author: LORI MCNEILL RT(R) Service: Radiology Author [...] PATIENT PRESENTS WITH AN IMPLANTABLE OR ATTACHED SUPERVISOR DRY PASTE: No RADIOLOGY DEPARTMENT: Mammography PERIPHERAL IV DATA: Not applicable SIGNED BY: RT Latia(Jd) January 30, 2024 10:28 [facility]10-11-2024 History of Present illness Narrative* Anastasia Mon [...] No history of dysuria, frequency or incontinence 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 Asapplicable, any other physician, advance practice provider, medical student, or other health professional student that will be observing or involved in the sensitive examination for educational or training purposes was discussed with the Patient or Authorized Court Clerk. The Patient or Authorized Court Clerk has agreed to proceed with the sensitive [...] which included preparing to see the patient, cmze-id-hkao patient care, completing clinical documentation, performing a medically appropriate examination, counseling and educating the patient/family/caregiver, ordering medications, tests, or procedures, independently interpreting results (not separately reported), and communicating results to the patient/family/caregiver. Anastasia Mon PA-C documented in this encounterPrem[facility]10-11-2024 NoteHNO ID: [id number] Author: ANASTASIA MON PA-C Service: ? Author Type: Physician Preschool Program Director Type: Progress Notes Filed: 01/30/2024 13:52 Note [...] for sanket (more content not included)...[facility]09-30-2024 History of Present illness Narrative* [...] changes of both breasts (Z98.890) Post-operative state uSlly Enriquez 33 year old female with a [...] concerns. Anastasia Mon PA-C documented in this encounterPremier [facility]09-30-2024 NoteHNO ID: [id number] Author: ANASTASIA MON PA-C Service: ? Author Type: Physician Preschool Program Director Type: Progress Notes Filed: 01/19/2024 15:40 Note [...] SURGICAL PATHOLOGY: FINAL DIAGNOSIS Right breast mass, AZYDA-localized excision: - Fibroadenoma. - Adjacent breast tissue [...] answered; patient has no further concerns. [facility]09-20-2024 Telephone encounter Note* Telephone Encounter - Kobe Wallis - 01/09/2024 4:33 PM EDT Returned call and spoke to pt. Pt stated she is alternating tylenol and ibuprofen and also took Neurontin last night. Pt stated, nothing helped. Pt also stated that she feels nauseous and thinks its from the pain. Spoke withDr. Sutton while in clinic, she will order additional medication for pt. [facility]09-20-2024 Miscellaneous Notes* Telephone Encounter - Kobe Wallis [...] touch, nausea. Patient can be reached at [phone]. Thanks documented in this encounterPremier Health [facility]09-20-2024 Telephone encounter Note * Telephone Encounter - Anyi Cheatham - 01/09/2024 1:54 PM EDT Patient called stating that since last night she is experiencing right side pain and arm movement makes it worse (level 8), warm to touch, nausea. Patient can be reached at [phone]. Thanks [facility]09-19-2024 NoteHNO ID: [id number] Author: KRANTHI HARRIS AA Service: ? Author Type: Crane Service Technician Type: Anesthesia Procedure Notes Filed: 01/08/2024 09:21 [...] January 08, 2024 TIME: 9:19 AM CSN: [id number] [facility]als [facility]09-[facility]-2024 NoteHNO ID: [id number] Author: KRANTHI HARRIS AA Service: ? 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 patient Staffing CAA: Kranthi Harris AA [...] January 08, 2024 TIME: 7:49 AM CSN: [id number] Hospitals [facility]09-18-2024 Instructions* Patient Education - Masha [...] SUPPLEMENTAL MATERIAL: Homegoing instructions REFERRAL (RECOMMENDATION): None [facility]09-18-2024 Miscellaneous Notes* Patient Education - Masha Johnston [...] instructions REFERRAL (RECOMMENDATION): None documented in this encounterPremier Health [facility]09-17-2024 Telephone encounter Note * Telephone Encounter - [...] Russo PA-C January 06, 2024 2:13 PM [facility]09-17-2024 Miscellaneous Notes* Telephone Encounter - Camila Russo [...] 06, 2024 2:13 PM documented in this encounterPremier Health [facility] Valley [facility] Center09-17-2024 Instructions* Patient Instructions* Camila Russo PA-C - 01/06/2024 2:07 PM EDT PATIENT PREOPERATIVE INSTRUCTIONS Adele Sutton, * has scheduled you for your procedure at this surgery center: [facility]: [phone] --[address] [place] [address] Location is near [facility]. Arrival Time for Surgery: - The Surgery [...] Procedures: - YOU MUST HAVE A RESPONSIBLE TOY MAKER TAKE YOU HOME. A APARTMENT RENTAL AGENT OR CAR DISPATCHER CANNOT BE MADE A RESPONSIBLE TOY MAKER. - We recommend that a responsible person stays with you overnight to take care of you. - You cannot stay in a hotel alone after outpatient surgery. You will not be permitted to have yoursurgery, if you do not have someone to take care of you. If you already have an Advance Directive, please fax a copy to [phone] or email to for it to be [...] day. Camila Russo PA-C documented in this encounterPremier Health [facility]09-17-2024 History and physical note * Camila Russo [...] surgeon This is a virtual visit using RedT video visit. It required patient-provider interaction for [...] virtual visit. The visit was conducted using RedT video visit. It required patient-provider interaction for the medical decision making as documented below. I have communicated my name and active licensure. The patient's identity and physical location wereverified at the time of this visit. Either the patient or their legal printing supplies sales representative has been informed of the risks [...] chest pain, CHF, DVT/PE, hyperlipidemia, hypertension, recent NH, PTCA, PVD and open heart surgery. GI: Negative for: dysphagia, GERD, GI bleed <30 days, liver disease and ETOH >2 drinks/day. : +hx recurrent UTIs, recently tx'd for infection, finished course of antibiotic, sxs resolved Positive for: nephrolithiasis (IN PAST, had surgery). Negative for: dysuria, frequent urination, hematuria, urinary incontinence and renal failure. 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 Instructions Given to Patient: Instructions located in the after visit summary. Patient given verbal and written preop instructions and voices comprehension and compliance. SIGNATURE: Camila Russo PA-C PATIENT NAME: Sully Enriquez DATE: January 06, 2024 TIME: 1:51 PM PAGER/CONTACT #: [facility]09-17-2024 History and physical note* Camila Russo PA-C [...] virtual visit. The visit was conducted using RedT video visit. It required patient-provider interaction for the medical decision making as documented below. I have communicated my name and active licensure. The patient's identity and physical location wereverified at the time of this visit. Either the patient or their legal printing supplies sales representative has been informed of the risks [...] chest pain, CHF, DVT/PE, hyperlipidemia, hypertension, recent NH, PTCA, PVD and open heart surgery. GI: Negative for: dysphagia, GERD, GI bleed <30 days, liver disease and ETOH >2 drinks/day. : +hx recurrent UTIs, recently tx'd for infection, finished course of antibiotic, sxs resolved Positive for: nephrolithiasis (IN PAST, had surgery). Negative for: dysuria, frequent urination, hematuria, urinary incontinence and renal failure. 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 Instructions Given to Patient: Instructions located in the after visit summary. Patient given verbal and written preop instructions and voices comprehension and compliance. SIGNATURE: Camila Rusos PA-C PATIENT NAME: Sully Enriquez DATE: January 06, 2024 TIME: 1:51 PM PAGER/CONTACT #: documented in this encounterPremier Health [facility]09-13-2024 Telephone encounter Note * Telephone Encounter - [...] reschedule? Thank you! Salina Dickinson PA-C PACC [facility] Work Phone: [phone] Miscellaneous Notes* Telephone Encounter - Salina Dickinson [...] Salina Dickinson PA-C PACC documented in this encounterPremier Health [facility] Center09-11-2024 Telephone encounter Note * Telephone Encounter - Tamika Camacho APRN.CNP - 12/31/2023 3:03 PM EDT Patient was scheduled for virtual PACC appt at 1500 today. Patient did not check in for visit. Called patient at 1505, stated they forgot and needed to reschedule This message routed to PACC schedulers to contact patient to reschedule PACC appt. Tamika Camacho APRN.CNP [facility] Work Phone: 1(641) 581-931109-11-2024 Miscellaneous Notes* Telephone Encounter - Tamika Camacho APRN.CNP - 12/31/2023 3:03 PM EDT Patient was scheduled for virtual PACC appt at 1500 today. Patient did not check in for visit. Called patient at 1505, stated they forgot and needed to reschedule This message routed to PACC schedulers to contact patient to reschedule PACC appt. Tamika Camacho APRN.CNP documented in this encounterPremier Health [facility] Center09-09-2024 Telephone encounter Note * Telephone Encounter - Edgard Cole MD - 12/29/2023 12:19 PM EDT I have reviewed and approved the localization plan. Images dated 09/08/2023 are annotated. Radiologist: Edgard Cole MD [facility] Work Phone: 1(623) 309-809209-09-2024 Miscellaneous Notes* Telephone Encounter - Edgard Cole [...] breast, please review with radiologist) Sully Enriquez [id number] 1990 WORK- UP COMPLETE? Yes Order Placed Yes Right - Site 1 Location 8:00 4-5cm fn Clip Shape Coil Clip Clip Migration No Pathology FibroAdenoma Preferred Localization zayda * If clip migrated, please review with radiologist This Form Has Been Completed By Kobe Wallis On Behalf Of Dr. Sutton documented in this encounterPremier Health [facility] Center09-06-2024 Telephone encounter Note * Telephone Encounter - Kobe Wallis - 12/26/2023 3:22 PM EDT LOCALIZATION IMAGE REVIEW (Please do NOT submit until entire workup complete) (if > 3 reflectors to be placed in one breast, please review with radiologist) Sulyl Cullen Zoe [id number] 1990 WORK- UP COMPLETE? Yes Order Placed Yes Right - Site 1 Location 8:00 4-5cm fn Clip Shape Coil Clip Clip Migration No Pathology FibroAdenoma Preferred Localization zayda * If clip migrated, please review with radiologist This Form Has Been Completed By Kobe Wallis On Behalf Of Dr. Sutton [facility]09-06-2024 History and physical note* Adele Sutton MD - 12/26/2023 1:00 PM EDT Images from the original note were not included. [facility] [place] Department of General Surgery [facility] REASON for TODAY'S VISIT: Patient presents with: New Patient REFERRAL: Referring Provider: Franchesca Man PCP: Keli Strickland NP, EXAMINATION SCORER My clinic note and plan will be [...] - Self palpated RIGHT breast mass. 06/25/23 ([facility]) - diagnostic bilateral mammogram/US - diffuse heterogenous density. In theright breast at 8:00 approximately 4 to 5 cm from the nipple, is a hypoechoic avascular area that measures 2.0 x 1.6 x 1.1 cm. In the right upper outer quadrant of the breast at 2.8 x 1.0 x 2.8 cm lymph node is seen. There is no cortical thickening. 07/07/23 ([facility] - US guided CNB 8:00 4-5 CMFN [...] with coil clip placement: Fibroadenoma.Concordant. 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 Stays [...] . Physical Exam Exam conducted with a auto overhauler present. Constitutional: General: She is not in [...] Judgment normal. Ptosis: Grade II BREAST IMAGING: [facility] Breast Imaging was reviewed. Excerpts from Breast Imaging Studies Results US BREAST LTD RIGHT ([id number]) (Order [id number]) Patient Info Patient Name Sex Sully Adam ([id number]) Female 1990 08/07/2023 1:24 PM - Radiology, Oru In Impression IMPRESSION: BENIGN FINDING No sonographic abnormality at the site of clinical concern at 9:00. Circumscribed mass right breast 8:00 which is previously biopsied and reportedly benign. Clinical follow-up is recommended. Annual screening mammogram is recommended per NCCN guidelines based on patient's risk factors for breast cancer. Janes Winston M.D. ns/:08/07/2023 13:24:03 Service Representative(s): RT Mirtha(R)(M), [facility] Ultrasound BI-RADS: 2 Benign finding Multiple national specialty organizations have released breast cancer screening guidelines for women at average risk for developing breast cancer - guidelines that are based on both evidence and opinion, yet differ on when to start and how often to screen for breast cancer. With representation from Breast Imaging, Internal Medicine, [facility], Family Medicine, and Medical/Surgical Oncology, the [facility] has carefully reviewed the data and reached [...] their providers when to stop screening mammograms. Sagger Filler: Aracely Transcribe Date/Time: Aug 07 2023 11:56A Dictated by : JANES WINSTON MD This examination was interpreted and the report reviewed and electronically signed by: JANES WINSTON MD on Aug 07 2023 1:24PM EST Results-Findings * * *Final Report* * * DATE OF EXAM: Aug 07 2023 12:08PM Mykel 0594 - [facility] Trendabl BREAST Cocodrilo Dog RT / PROCEDURE REASON: multiple diagnoses * * * * Physician Interpretation * * * * RESULT: #[id number] - [facility] Trendabl BREAST LTD RT LIMITED ULTRASOUND OF RIGHT [...] biopsied mass which is reportedly benign. Results [facility] DIAG W DOMINIC RIGHT (Acc#[id number]) (Order [id number]) Patient Info Patient Name Sex Sully Adam ([id number]) Female 1990 09/11/2023 2:33 PM - Radiology, Oru In Addenda * * *Final Report* * * * * * SEE BOTTOM OF REPORT FOR ADDENDED TEXT * * * DATE OF EXAM: Sep 08 2023 2:52PM [facility] 0629 - [facility] DIAG W DOMINIC RT / PROCEDURE REASON: multiple diagnoses * * * * Physician Interpretation * * * * RESULT: FINAL REPORT #[id number] - [facility] DIAG W DOMINIC RT #[id number] - [facility] US BIOPSY BREAST RT ULTRASOUND GUIDED [...] Almanzar performed the entire procedure without an personal injury legal assistant. Audible Time Out Time: 1420 Procedure [...] location, four cores were obtained using a Hoseanna biopsy device. A [employer] open coil clip was inserted into the [...] surgical consultation. Lea Almanzar M.D., jr/aracely:09/11/2023 14:32:49 Service Representative(s): RT Mane(Jd)(M), [facility] [...] Health, Family Medicine, and Medical/Surgical Oncology, the [facility] has carefully reviewed the data and reached [...] their providers when to stop screening mammograms. Sagger Filler: Aracely Transcribe Date/Time: Sep 08 2023 2:52P Dictated by : LEA ALMANZAR MD This examination was interpreted and the report reviewed and electronically signed by: LEA ALMANZAR MD on Sep 08 2023 4:24PM EST This document has been addended by: LEA ALMANZAR MD on Sep 11 2023 2:32PM EST PATHOLOGY: SURGICAL PATHOLOGY: [id number] Order: [id number] Collected 09/08/2023 2:04 PM Status: Final result [...] to ask questions. Additional workup needed: ZAYDA human factors engineer placement by BOTH (coil + unspecified) clips in RIGHT breast - fibroadenoma Interdisciplinary care and follow up: SURGICAL ONCOLOGY: Adele Sutton MD Tentative surgical plan: RIGHT breast ZAYDA-Pneumatic Tube Fitter guided excision Consents were sent via [employer]. Postoperative analgesia was discussed. She WILL need prescriptions for tylenol, motrin, & gabapentin on the day of surgery. GLP-1 agonist or SGLT2 inhibitor use: No PRIMARY CARE PHYSICIAN: Ms. Enriquez is followed by Keli Strickland NP, EXAMINATION SCORER as scheduled. Ms. Enriquez will return to our office postoperatively. She has our names and numbers to contact us if she has any questions or concerns. Future Appointments Date Time Provider Department Center 02/17/2024 1:00 PM [facility]onal[facility] Sutton MD, FACOG Breast Surgical Oncology & Benign Gynecology [facility] [address] [facility], [place] [id number] [place] [address] Appointment cc: Franchesca Arenas Donovan [address] [place] [address] Keli Strickland NP, EXAMINATION SCORER I spent a total of 30 minutes on the date of the service which included preparing to see the patient, lxfr-zi-qgsf patient care, completing clinical documentation, obtaining and/or reviewing separately obtained history, performing a medically appropriate examination, and counseling and educating the patient/family/caregiver. [facility]09-06-2024 History and physical note* Adele Sutton MD - 12/26/2023 1:00 PM EDT Images from the original note were not included. [facility] [place] Department of General Surgery [facility] REASON for TODAY'S VISIT: Patient presents with: New Patient REFERRAL: Referring Provider: Franchesca Man PCP: Keli Strickland NP, EXAMINATION SCORER My clinic note and plan will be [...] - Self palpated RIGHT breast mass. 06/25/23 ([facility]) - diagnostic bilateral mammogram/US - diffuse heterogenous density. In theright breast at 8:00 approximately 4 to 5 cm from the nipple, is a hypoechoic avascular area that measures 2.0 x 1.6 x 1.1 cm. In the right upper outer quadrant of the breast at 2.8 x 1.0 x 2.8 cm lymph node is seen. There is no cortical thickening. 07/07/23 ([facility] - US guided CNB 8:00 4-5 CMFN [...] with coil clip placement: Fibroadenoma.Concordant. 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 Stays [...] . Physical Exam Exam conducted with a auto overhauler present. Constitutional: General: She is not in [...] Judgment normal. Ptosis: Grade II BREAST IMAGING: [facility] Breast Imaging was reviewed. Excerpts from Breast Imaging Studies Results US BREAST LTD RIGHT ([id number]) (Order [id number]) Patient Info Patient Name Sex Sully Adam ([id number]) Female 1990 08/07/2023 1:24 PM - Radiology, Oru In Impression IMPRESSION: BENIGN FINDING No sonographic abnormality at the site of clinical concern at 9:00. Circumscribed mass right breast 8:00 which is previously biopsied and reportedly benign. Clinical follow-up is recommended. Annual screening mammogram is recommended per NCCN guidelines based on patient's risk factors for breast cancer. Janes Winston M.D. ns/:08/07/2023 13:24:03 Service Representative(s): RT Mirtha(R)(M), [facility] [place] Ultrasound BI-RADS: 2 Benign finding Multiple national specialty organizations have released breast cancer screening guidelines for women at average risk for developing breast cancer - guidelines that are based on both evidence and opinion, yet differ on when to start and how often to screen for breast cancer. With representation from Breast Imaging, Internal Medicine, [facility], Family Medicine, and Medical/Surgical Oncology, the [facility] has carefully reviewed the data and reached [...] their providers when to stop screening mammograms. Sagger Filler: Aracely Transcribe Date/Time: Aug 07 2023 11:56A [...] Physician Interpretation * * * * RESULT: #[id number] - [facility] US BREAST LTD RT LIMITED ULTRASOUND OF [...] biopsied mass which is reportedly benign. Results [facility] DIAG W DOMINIC RIGHT (Acc#[id number]) (Order [id number]) Patient Info Patient Name Sex Sully Adam ([id number]) Female 1990 09/11/2023 2:33 PM - Radiology, Oru In Addenda * * *Final Report* * * * * * SEE BOTTOM OF REPORT FOR ADDENDED TEXT * * * DATE OF EXAM: Sep 08 2023 2:52PM [facility] [place] - [facility] DIAG W DOMINIC RT / PROCEDURE REASON: multiple diagnoses * * * * Physician Interpretation * * * * RESULT: FINAL REPORT #[id number] - [facility]JI DIAG W DOMINIC RT #[id number] - [facility] US BIOPSY BREAST RT ULTRASOUND GUIDED [...] Almanzar performed the entire procedure without an personal injury legal assistant. Audible Time Out Time: 1420 Procedure [...] surgical consultation. Lea Almanzar M.D., jr/aracely:09/11/2023 14:32:49 Service Representative(s): Maritza Rashaun, RT(R)(M), [facility] [...] Health, Family Medicine, and Medical/Surgical Oncology, the [facility] has carefully reviewed the data and reached [...] their providers when to stop screening mammograms. Sagger Filler: Aracely Transcribe Date/Time: Sep 08 2023 2:52P Dictated by : LEA ALMANZAR MD This examination was interpreted and the report reviewed and electronically signed by: LEA ALMANZAR MD on Sep 08 2023 4:24PM EST This document has been addended by: LEA ALMANZAR MD on Sep 11 2023 2:32PM EST PATHOLOGY: SURGICAL PATHOLOGY: [id number] Order: [id number] Collected 09/08/2023 2:04 PM Status: Final result [...] to ask questions. Additional workup needed: ZAYDA human factors engineer placement by BOTH (coil + unspecified) clips in RIGHT breast - fibroadenoma Interdisciplinary care and follow up: SURGICAL ONCOLOGY: Adele Sutton MD Tentative surgical plan: RIGHT breast ZAYDA-Pneumatic Tube Fitter guided excision Consents were sent via [employer]. Postoperative analgesia was discussed. She WILL need prescriptions for tylenol, motrin, & gabapentin on the day of surgery. GLP-1 agonist or SGLT2 inhibitor use: No PRIMARY CARE PHYSICIAN: Ms. Enriquez is followed by Keli Strickland NP, EXAMINATION SCORER as scheduled. Ms. Enriquez will return to our office postoperatively. She has our names and numbers to contact us if she has any questions or concerns. Future Appointments Date Time Provider Department Center 02/17/2024 1:00 PM [facility] Monalisa Sutton MD, FACOG Breast Surgical Oncology & Benign Gynecology [address] [place] [id number] Appointment cc: Franchesca Man [address] [place], [place] [phone] Keli Strickland NP, EXAMINATION SCORER I spent a total of 30 minutes on the date of the service which included preparing to see the patient, nnoh-vn-pxqc patient care, completing clinical documentation, obtaining and/or reviewing separately obtained history, performing a medically appropriate examination, and counseling and educating the patient/family/caregiver. documented in this encounterPrem[facility]08-28-2024 Note12/17/23 0702 Referral Data Referral Source pattern layout worker Referral Reason Information Patient Information Accompanied by/Relationship spouseJamari Activities of Daily Living Assistive Device Not applicable Living Arrangement (Current/Prior to Hospitalization) Private residence Behavior Oriented Income Information Income Source Employed Discharge Planning Support Systems Spouse/significant other Type of Residence Private residence Patient's goal for discharge home The patient was transferred from [facility] to [facility] to rule out cauda equina. The patient is present with her spouse, Jamari. The couple live together in [place], [place], denying any financial strains. She is employed. No active community resource. Her primary care provider is Dr. Mario Glasgow at [facility]. Her discharge plan is home.[facility]05-24-2024 Telephone encounter Note* Telephone Encounter - Franchesca Man PA-C - 09/12/2023 10:09 AM EDT Spoke to patient and relayed results from biopsy (benign FA). We discussed that because the FA is 2cm in size and bothersome it is reasonable to see a breast surgeon to discuss the possibility of excision. She is agreeable and voices understanding. Consult placed. [facility]05-24-2024 Miscellaneous Notes* Telephone Encounter - Franchesca Man PA-C - 09/12/2023 10:09 AM EDT Spoke to patient and relayed results from biopsy (benign FA). We discussed that because the FA is 2cm in size and bothersome it is reasonable to see a breast surgeon to discuss the possibility of excision. She is agreeable and voices understanding. Consult placed. documented in this encounterPremier [facility]05-23-2024 Telephone encounter Note * Telephone Encounter - Franchesca Man PA-C - 09/11/2023 3:24 PM EDT Called pt to discuss biopsy result and recommendations. No answer, will try back tomorrow morning. [facility]05-23-2024 Miscellaneous Notes* Telephone Encounter - Franchesca Man PA-C - 09/11/2023 3:24 PM EDT Called pt to discuss biopsy result and recommendations. No answer, will try back tomorrow morning. documented in this encounterPremier Health [facility] Center05-23-2024 Telephone encounter Note * Telephone Encounter - Lou Miller RN - 09/11/2023 2:29 PM EDT Called patient to notify the breast pathology results are fibroadenoma per Dr. Almanzar. Patient willcall back to assist with surgical consult appt. Dr. Almanzar is aware. [facility]05-23-2024 Miscellaneous Notes* Telephone Encounter - Lou Miller RN - 09/11/2023 2:29 PM EDT Called patient to notify the breast pathology results are fibroadenoma per Dr. Almanzar. Patient willcall back to assist with surgical consult appt. Dr. Almanzar is aware. documented in this encounterPremier Health [facility] Center05-20-2024 Instructions* Patient Education - Maritza Rodney RT(Jd) [...] SUPPLEMENTAL MATERIAL: Homegoing instructions REFERRAL (RECOMMENDATION): None [facility]05-20-2024 Miscellaneous Notes* Patient Education - Maritza Rodney [...] instructions REFERRAL (RECOMMENDATION): None documented in this encounterPremier Health [facility] Center04-22-2024 Telephone encounter Note * Telephone Encounter - Franchesca Man PA-C - 08/11/2023 10:03 AM EDT Spoke to patient and gave her results of over-read. She wants to proceed with biopsy. Order placed. [facility]04-22-2024 Miscellaneous Notes* Telephone Encounter - Franchesca Man PA-C - 08/11/2023 10:03 AM EDT Spoke to patient and gave her results of over-read. She wants to proceed with biopsy. Order placed. documented in this encounterPremier Health [facility] Center04-18-2024 History of Present illness Narrative* Marilyn Jarrell [...] PATIENT PRESENTS WITH AN IMPLANTABLE OR ATTACHED SUPERVISOR DRY PASTE: No RADIOLOGY DEPARTMENT: Mammography PERIPHERAL IV DATA: Not applicable SIGNED BY: HAWA Gasca) August 07, 2023 12:36 PM documented in this encounterPremier Health [facility] Center04-18-2024 NoteHNO ID: [id number] Author: MARILYN JARRELL RT(R) Service: Radiology Author [...] PATIENT PRESENTS WITH AN IMPLANTABLE OR ATTACHED SUPERVISOR DRY PASTE: No RADIOLOGY DEPARTMENT: Mammography PERIPHERAL IV DATA: Not applicable SIGNED BY: RT Campos(Jd) August 07, 2023 12:36 [facility]04-18-2024 History of Present illness Narrative* Franchesca Man PA-C - 08/07/2023 10:30 AM EDT MEDICAL BREAST PATIENT NAME: Sully Enriquez 08/07/2024 REFERRAL: She is self referred for an opinion regarding right breast biopsy. HISTORY of PRESENT ILLNESS: Sully Enriquez is a 33 year old year old premenopausal woman who presents to the [facility] [place] today for second opinion of right breast biopsy. The patient deniesany breast skin changes. She reports 1 year history of bilateral diffuse breast pain R>L. She also reports bilateral milky nipple discharge for the past year. She notices this as a white crusting on her bra most days. Shehasn't breast fed in 13 years. She was seen for her breast related issues at [facility]) with care as follows: 06/25/23: Diagnostic bilateral DBT and US at [facility]): - RIGHT breast 8oclock 4-5cmfn hypoechoic 2cm [...] mammograms. A prolactin was previously ordered at [facility] (06/18/23) and [facility]. A TSH was ordered today. She was referred to endocrinology. She will come back if she notices a change in the discharge or any new lumps or breast concerns. Regarding her breast pain, she is advised to completely decaffeinate her diet and have a proper brafitting. If the pain becomes severe or persistent, she may try Evening Groveton Oil 1000mg twice daily for 3-4 months. She was given a breast pain informational handout. Genetics referral made: No: Reason: n/a Chemoprevention discussion: N/A The patient is advised to exercise regularly, achieve/maintain ideal body weight, and to limit alcohol consumption to less than 7 drinks weekly for breast cancer risk reduction and overall health. Her imaging will be formally over-read by [facility] breast radiology team. Based on the [...] which included preparing to see the patient, ghbq-pr-dbds patient care, completing clinical documentation, obtaining and/or [...] Phone: N/A Fax: Keli Strickland NP [address] [place] [address] documented in this encounterPremier Health [facility] Center04-18-2024 NoteHNO ID: [id number] Author: GREENHOUSE, MOLLIE, PA-C Service: ? Author Type: Physician Preschool Program Director Type: Progress Notes Filed: 08/07/2023 14:26 Note Text: MEDICAL BREAST PATIENT NAME: Sully Enriquez 08/07/[birth year]23 REFERRAL: She is self referred for an opinion regarding right breast biopsy. HISTORY of PRESENT ILLNESS: Sully Enriquez is a 33 year old year old premenopausal woman who presents to the [facility] [place] today for second opinion of right breast [...] seen for her breast related issues at [facility] with care as follows: 06/25/23: Diagnostic bilateral DBT and US at [facility]): - RIGHT breast 8oclock 4-5cmfn hypoechoic 2cm [...] Nodes: The (more content not included)...[facility]04-10-2024 Miscellaneous Notes* Telephone Encounter - Kenia Peters MA - 07/30/2023 10:52 AM EDT Spoke with patient she is coming in because she states that she had a biopsy 06/2023 and was told itwas fibroadenoma. Patient states that she feels like her provider is not giving her all the information and would like a second opinion. She was seen at [facility] in [place] I will reach out to them to retrieve any information and imaging needed for her appointment 08/07/23 with Franchesca FINNEGAN in the [facility] contact number is [phone]. Kenia Peters MA documented in this encounterPremier Health [facility] Center04-05-2024 Miscellaneous Notes* Telephone Encounter - Kenia Peters MA - 07/25/2023 12:58 PM EDT Called patient to discuss her upcoming appointment with Franchesca Man in the breast center. I left a message asking patient to call me back @[phone]. Kenia Peters MA documented in this encounterPremier Health [facility] Center01-17-2024 Evaluation note* Encounter Date Diagnosis Assessment Notes Treatment Notes Treatment Clinical Notes Apr, Anxiety (ICD-10 - F41.9) [facility] Other 10-26-2023 Evaluation note* Encounter Date Diagnosis Assessment Notes Treatment Notes Treatment Clinical Notes Jan, Anxiety (ICD-10 - F41.9) [facility] Other 10-11-2023 Evaluation note* Encounter Date Diagnosis Assessment Notes Treatment Notes Treatment Clinical Notes Jan, BMI 37.0-37.9, adult (ICD-10 - Z68.37) [facility] - eRX sent. We did discuss that she needs to do a better job with the monitoring of her diet. If her weight loss does not improve, we must consider withholding medication. She voices agreement and understanding. [facility] Other 10-03-2023 Evaluation note* Encounter Date Diagnosis Assessment Notes Treatment Notes Treatment Clinical Notes Jan, Anxiety (ICD-10 - F41.9) [facility] Other 09-01-2023 Evaluation note* Encounter Date Diagnosis Assessment Notes Treatment Notes Treatment Clinical Notes Dec, Anxiety (ICD-10 - F41.9) [facility] Other 08-24-2023 Evaluation note* Encounter Date Diagnosis Assessment Notes Treatment Notes Treatment Clinical Notes Nov, BMI 37.0-37.9, adult (ICD-10 - Z68.37) [employer] Pr[facility] -E Rx sent. No other change today. We will recheck in 1 month. [facility] Other 08-05-2023 Hospital Discharge instructions Patient Education [...] Follow these instructions at home: Medicines Take wvmc-tda-maadfxg and prescription medicines only as told by your health care provider. Ask your health care provider if the medicine prescribed to you: ?Requires you to avoid driving or using machinery. ?Can cause constipation. You may need to take these actions to prevent or treat constipation: ?Drink enough fluid to keep your urine pale yellow. ?Take fjzf-sez-pmxvrlj or prescription medicines. ?Eat foods that are [...] is important. Where to find more information [employer]: www.acog.org Office [...] provider. Document Revised: 11/08/2020 Document Reviewed: 11/08/2020 [employer] Patient Education 2022 [employer]. 11/23/2022 01:20:40 Laparoscopic Lysis of Abdominal Adhesions [...] including vitamins, herbs, eye drops, creams, and kkbo-ghd-rnjhxji medicines. Any problems you or family members [...] provider tells you to take them. Taking axny-mbs-wbnpafw medicines, vitamins, herbs, and supplements. General instructions [...] provider. Document Revised: 12/15/2020 Document Reviewed: 12/15/2020 [employer] Patient Education 2022 [employer]. 11/23/2022 01:20:40 Adhesions, Wejl-nd-Hjur Adhesions Adhesions are strings of tissue that [...] needed. Follow these instructions at home: Take oevy-oon-attplxc and prescription medicines only as told by [...] Treatment may include medicines and surgery. Take upbo-vid-hgnqvav and prescription medicines only as told by your doctor. This information is not intended to replace advice given to you by your health care provider. Make sure you discuss any questions you have with your health care provider. Document Revised: 12/15/2020 Document Reviewed: 12/15/2020 [employer] Patient Education 2022 [employer]. 11/23/2022 01:20:40 Abdominal Pain, Adult, Nlwb-fo-Ihqg Abdominal Pain, Adult Many things can cause belly (abdominal) pain. Most times, belly pain is not dangerous. Many cases of belly pain can be watched and treated at home. Sometimes, though, belly pain is serious. Your doctor will try to find the cause of your belly pain. Follow these instructions at home: Medicines Take qkdv-puh-ewxafpv and prescription medicines only as told by [...] your belly pain for any changes. Take fzel-vvm-qjbtovm and prescription medicines only as told by [...] provider. Document Revised: 08/16/2019 Document Reviewed: 08/16/2019 [employer] Patient Education 2022 [employer]. Follow Up Care 11/22/2022 19:01:50 With:MARIO GLASGOW Address: [facility] [place] [id number] Business (1) When:11/26/2022 [facility]07-27-2023 Evaluation note* Encounter Date Diagnosis Assessment Notes Treatment Notes Treatment Clinical Notes Oct, BMI 37.0-37.9, adult (ICD-10 - Z68.37) [employer] - eRX sent. Call with any concerns. [facility] Other 06-27-2023 Evaluation note* Encounter Date Diagnosis [...] We will see patient back for follow-up. [facility] Other 05-30-2023 Evaluation note* Encounter Date Diagnosis Assessment Notes Treatment Notes Treatment Clinical Notes August, BMI 39.0-39.9,adult (ICD-10 - Z68.39) [facility] - eRX sent. Call with any concern. [facility] Other 05-30-2023 Evaluation note* Encounter Date Diagnosis Assessment Notes Treatment Notes Treatment Clinical Notes August, BMI 39.0-39.9,adult (ICD-10 - Z68.39) [facility] Other 12-28-2022 Evaluation note* Encounter Date Diagnosis [...] year, with out any concerns with anesthesia. [facility] Other 09-06-2022 Evaluation note* Encounter Date Diagnosis Assessment Notes Treatment Notes Treatment Clinical Notes Dec, BMI 36.0-36.9,adult (ICD-10 - Z68.36) [facility] Other 08-24-2022 Evaluation note* Encounter Date Diagnosis [...] third and final prescription of the Adipex. [facility] Other 08-03-2022 Evaluation note* Encounter Date Diagnosis Assessment Notes Treatment Notes Treatment Clinical Notes Nov, BMI 36.0-36.9,adult (ICD-10 - Z68.36) [facility] Other 07-05-2022 Evaluation note* Encounter Date Diagnosis Assessment Notes Treatment Notes Treatment Clinical Notes Oct, Conjunctivitis (ICD9-CM - 372.30) [facility] Other 06-24-2022 Evaluation note* Encounter Date Diagnosis Assessment Notes Treatment Notes Treatment Clinical Notes Sep, BMI 37.0-37.9, adult (ICD-10 - Z68.37) [facility]-E Rx sent. Lengthy discussion regarding side effects as well as possible outcomes of the medication. We will see her back in 1 month. Patient to call with any concerns. [facility] Other 06-24-2022 Evaluation note* Encounter Date Diagnosis Assessment Notes Treatment Notes Treatment Clinical Notes Sep, BMI 37.0-37.9, adult (ICD-10 - Z68.37) [facility] Other 06-13-2022 Evaluation note* Encounter Date Diagnosis Assessment Notes Treatment Notes Treatment Clinical Notes Sep, BMI 38.0-38.9,adult (ICD-10 - Z68.38) [facility] Other 06-09-2022 Evaluation note* Encounter Date Diagnosis [...] psychiatric diagnoses/as well as her seizure concerns. [facility] Other 04-27-2022 Hospital Discharge instructions Patient Education [...] fried and sweet foods. General instructions Take bpuy-gkp-lvwblqq and prescription medicines only as told by [...] 02/01/2010 Document Revised: 07/29/2019 Document Reviewed: 04/23/2018 [employer] Patient Education 2020 [employer]. [facility] 02-09-2022 Evaluation note* Encounter Date Diagnosis [...] 2mg at that time of refill need. [facility] Other 01-18-2022 Evaluation note* Encounter Date Diagnosis Assessment Notes Treatment Notes Treatment Clinical Notes Apr, Dysuria (ICD-10 - R30.0) [facility] Other 01-12-2022 Evaluation note* Encounter Date Diagnosis [...] next week. She voices agreement and understanding. [facility] Other 11-17-2021 NoteHNO ID: [id number] Author: Rosalie Haile MD Service: ? Author Type: Physician Type: Progress Notes Filed: 03/08/2021 8:38 PM Note Text: [facility] - General Progress Note SULLY ENRIQUEZ : 1990 AGE: 31 SEX: F CSN: [id number] [facility] [place] LOCATION: [facility] ATTENDING PHYSICIAN: Rosalie Haile M.D. DATE [...] follow up. Rosalie Haile M.D. Internal Medicine ESPINOZA:[id number] NoteHNO ID: [id number] Author: Saravanan Yancey MD Service: Neurology General [...] Will await MRI results. 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 Last discharge within 30 days: No Advance Directive: Current Advance Directive: None Hospital Cook Attempted to Assist with AD Completion: Yes [...] None Has the Patient Been in a Senior Living Facility in the Past 30 days?: No SOCIAL: Living Arrangements: Home Lives With: Partner;Daughter;Son Financial Resources: Employed Primary Contact: Extended Emergency Contact Information Primary Emergency Contact: jamari strong Address: [address] [place] [address] Mobile Relation: Significant other Secondary Emergency Contact: [...] Completely I feel financially burdened by my mnb-gs-gfdtat expenses for my prescription medication:: 0 - Disagree Completely Risk Score: 0 Patient is categorized as: Low risk < 2 Are you interested in bedside delivery of your medications? No Is Patient Psychosocially Complex?: No ASSESSMENT AND PLAN: Medical Needs: Medical Needs: None Psychosocial Needs: Psychosocial Needs: Mental Health Diagnosis Mental Health Information: Coversion d/o, anxiety FREEDOM OF CHOICE EXPLAINED: Louann of Choice Given: No Reason Not Given: [...] and drives. Does not utilize any DME, fpc or community resources. No skilled needs identified at this time. DC transportation will be provided by [employer] [phone]. SIGNATURE: JULITO Lino PATIENT NAME: Sully Enriquez DATE: March 06, 2021 TIME: 4:00 PM PAGER/CONTACT #: [phone] + [facility] note No data available for this section [facility] evaluation noteNo InformationNort [email or web address] Other Evaluation noteNo assessment information available [facility] [place] Work Phone: Evaluation note* Diagnosis Disorder of breast- Primary Unspecified breast disorder [facility] Diagnosis Mastodynia- Primary Fibrocystic breast changes of both breasts Family history of breast cancer Family history of malignant neoplasm of breast Dense breasts Inconclusive mammogram Nipple discharge Other sign and symptom in breast [facility] Diagnosis Disorder of breast Unspecified breast disorder Fibrocystic breast changes of both breasts Family history of breast cancer Family history of malignant neoplasm of breast Mastodynia documented in this [facility] Diagnosis Onset Date Resolution Status Fatigue noneactive BMI 39.0-39.9,adult noneacti ve [facility] Work Phone: Evaluation note* Diagnosis Fibrocystic breast changes of both breasts Family history of breast cancer Family history of malignant neoplasm of breast Mastodynia Dense breasts Inconclusive mammogram Nipple discharge Other sign and symptom in breast Mass of right breast, unspecified quadrant [facility] Diagnosis Breast fibroadenoma, right- Primary Fibrocystic breast changes of both breasts Mastodynia Dense breasts Inconclusive mammogram documented [facility] Diagnosis Onset Date Resolution Status Fatigue noneactive BMI 39.0-39.9,adult noneacti ve BMI 39.0-39.9,adult noneacti ve [facility] Work Phone: Evaluation note* Diagnosis Onset Date Resolution Status Fatigue noneactive BMI 39.0-39.9,adult noneacti ve BMI 39.0-39.9,adult noneacti ve BMI 38.0-38.9,adult noneacti ve [facility] Work Phone: Evaluation note* Diagnosis Onset Date Resolution Status BMI 39.0-39.9,adult noneacti ve BMI 38.0-38.9,adult noneacti ve Lump of right breast acute UTI (urinary tract infection) acute BMI 38.0-38.9,adult noneacti ve [facility] Work Phone: Evaluation note* Diagnosis Breast fibroadenoma, right- Primary Preop testing Preoperative examination, unspecified Breast fibroadenoma, right [facility] Diagnosis Breast fibroadenoma, right- Primary Breast fibroadenoma, right [facility] Diagnosis Pre-op evaluation- Primary Preoperative [...] PRN Saw neurology documented in this [facility] Diagnosis Pre-op evaluation- Primary Preoperative examination, unspecified Seizure (HCC) Other convulsions Difficult intravenous access Other specified conditions influencing health status Obesity (BMI 30-39.9) Obesity, unspecified POTS (postural orthostatic tachycardia syndrome) Tachycardia, unspecified Rash Rash and other nonspecific skin eruption Breast fibroadenoma, right documented in this encounter [facility] Diagnosis Pre-op evaluation- Primary Preoperative examination, unspecified Seizure (HCC) Other convulsions Difficult intravenous access Other specified conditions influencing health status Obesity (BMI 30-39.9) Obesity, unspecified POTS (postural orthostatic tachycardia syndrome) Tachycardia, unspecified Rash Rash and other nonspecific skin eruption Breast fibroadenoma, right- Primary Fibrocystic breast changes of both breasts Post-operative state Other postprocedural status documented in this encounter [facility] note* Diagnosis Pre-op evaluation- Primary Preoperative examination, [...] symptom in breast documented in this encounter [facility] note* Diagnosis Pre-op evaluation- Primary Preoperative examination, unspecified Seizure (HCC) Other convulsions Difficult intravenous access Other specified conditions influencing health status Obesity (BMI 30-39.9) Obesity, unspecified POTS (postural orthostatic tachycardia syndrome) Tachycardia, unspecified Rash Rash and other nonspecific skin eruption Mass of right breast, unspecified quadrant Nipple discharge Other sign and symptom in breast documented in this encounter [facility] note* Diagnosis Pre-op evaluation- Primary Preoperative examination, unspecified Seizure (HCC) Other convulsions Difficult intravenous access Other specified conditions influencing health status Obesity (BMI 30-39.9) Obesity, unspecified POTS (postural orthostatic tachycardia syndrome) Tachycardia, unspecified Rash Rash and other nonspecific skin eruption Discharge from right nipple- Primary Obesity, Class II, BMI 35-39.9 Obesity, unspecified documented in this encounter [facility] note* Diagnosis Onset Date Resolution Status Lump of right breast acute UTI (urinary tract infection) acute BMI 38.0-38.9,adult noneacti ve Sinusitis noneactive [facility] Work Phone: Evaluation note* Diagnosis [...] symptom in breast [facility] this [facility] Diagnosis Pre-op evaluation- Primary Preoperative examination, [...] symptom in breast documented in this encounter [facility] general Narrative - Reported* Type Description Date [...] dif ferent times Hospitalization History Seizures 02/2021 [facility] Other [facility] general Narrative - Reported* Type Description Date [...] dif ferent times Hospitalization History Seizures 02/2021 [facility] Other History general Narrative - ReportedNortClickslide Other [facility] general Narrative - Reported* Type Description Date [...] dif ferent times Hospitalization History Seizures 02/2021 [facility] Other Hospital Discharge instructions Additional Instructions DISCHARGE [...] FOLLOW UP -[Please call the office at ([phone]) to make follow appointment before leaving the hospital]. -[2 Weeks] [ ][facility] Work Phone: Hospital Discharge instructions No data available for this section [facility] progress note No data available for this section [facility] Diagnostic Procedure Only (Routine) - Authorized Specialty Diagnoses / Procedures Referred By Nikolas guerrero Referred To Contact [facility] Diagnoses Disorder of breast Procedures SAJI DIAGNOSTIC BILATERAL DIAGNOSTIC MAMMOGRAPHY COMPUTER-AIDED DETCJ BI Franchesca Man PA-C [address] [place] [id number] [facility] [address] [place] [address] Referral ID Status Reason Start Date Expiration Date Visits Requested Visits Authorized [id number] Authorized Auto-Generat ed Referral 08/06/2023 09/04/2024 1 1 [facility] for referral (narrative)* Diagnostic Procedure Only (Routine) - Closed Specialty Diagnoses / Procedures Referred By Nikolas guerrero Referred To Contact [facility] Diagnoses Fibrocystic breast changes of both breasts Family history of breast cancer Mastodynia Procedures US BREAST LTD RIGHT US BREAST UNI REAL TIME WITH IMAGE LIMITED Farnchesca Man PA-C [address] [address] [facility] [address] [place] [address] Referral ID Status Reason Start Date Expiration Date V isits Requested Visits Authorized [id number] Closed Auto-Generate d Referral 08/07/2023 04/20/2024 1 1 [facility] for referral (narrative)* Diagnostic Procedure Only (Routine) - Closed Specialty Diagnoses / Procedures Referred By Contac t Referred To Contact [facility] Diagnoses Fibrocystic breast changes of both breasts Family history of breast cancer Mastodynia Dense breasts Nipple discharge Mass of right breast, unspecified quadrant Procedures US BIOPSY BREAST RIGHT BX BREAST W/DEVICE 1ST LESION ULTRASOUND GUID Franchesca Man PA-C [address] [facility] [address] [place] [address] [facility] [address] [place] [address] Referral ID Status Reason Start Date Expiration Date V isits Requested Visits Authorized [id number] Closed Auto-Generate d Referral 08/11/2023 09/09/2024 1 1 [facility] for referral (narrative)* Diagnostic Procedure Only (Routine) - New Request Specialty Diagnoses / Procedures Referred By Nikolas guerrero Referred To Contact [facility] Diagnoses Breast fibroadenoma, right Procedures SAJI NDL LOC W SAJI GD RIGHT PERQ DEVICE PLACEMENT BREAST LOC 1ST LES W/GDNCE Adele Sutton MD [address] [place] [address] [facility] [address] [place] [address] Referral ID Status Reason Start Date Expiration Date Visits Requested Visits Authorized [id number] New Request Auto-Generat ed Referral 12/26/2023 01/24/2025 1 1 [facility] for referral (narrative)* Diagnostic Procedure Only (Routine) - Closed Specialty Diagnoses / Procedures Referred By Contac t Referred To Contact [facility] Diagnoses Mass of right breast, unspecified quadrant Nipple discharge Procedures US BREAST LTD RIGHT US BREAST UNI REAL TIME WITH IMAGE LIMITED Anastasia Mon PA-C [address] [place] [address] [facility] [address] [place] [address] Referral ID Status Reason Start Date Expiration Date V isits Requested Visits Authorized [id number] Closed Auto-Generate d Referral 01/29/2024 02/27/2025 1 1 [facility] for referral (narrative)* Diagnostic Procedure Only (Routine) - Closed Specialty Diagnoses / Procedures Referred By Contac t Referred To Contact [facility] Diagnoses Mass of right breast, unspecified quadrant Nipple discharge Procedures US BREAST LTD RIGHT US BREAST UNI REAL TIME WITH IMAGE LIMITED Anastasia Mon PA-C [address] [place] [address] Br Imaging [address] [place] [address] Referral ID Status Reason Start Date Expiration Date V isits Requested Visits Authorized [id number] Closed Auto-Generate d Referral 03/12/2024 04/20/2024 1 1 [facility] for visit Narrative1 month Follow up, ER visit recently referrals to GI and urologistProsperity [email or web address] Other [facility] Narrative* Diagnostic Procedure Only (Routine) - Closed Specialty Diagnoses / Procedures Referred By Contac t Referred To Contact [facility] IM[facility] Diagnoses Breast fibroadenoma, right Procedures SAJI NDL LOC W SAJI GD RIGHT PERQ DEVICE PLACEMENT BREAST LOC 1ST LES W/GDAdele Brian MD [address] [place] [address] [facility] [address] [place] [address] Referral ID Status Reason Start Date Expiration Date V isits Requested Visits Authorized [id number] Closed Auto-Generate d Referral 12/26/2023 01/24/2025 1 1 [facility]* Diagnostic Procedure Only (Routine) - Closed Specialty Diagnoses / Procedures Referred By Nikolas t Referred To Contact [facility] IM[facility] Diagnoses Mass of right breast, unspecified quadrant Nipple discharge Procedures US BREAST LTD RIGHT US BREAST UNI REAL TIME WITH IMAGE LIMITED Anastasia Mon PA-C [address] [place] [address] [facility] [address] [place] [address] Referral ID Status Reason Start Date Expiration Date V isits Requested Visits Authorized [id number] Closed Auto-Generate d Referral 01/29/2024 02/27/2025 1 1 [facility] Summary Purpose Family History Relationship Condition Age [...] Relationship Condition Age at Onset Recorded Date/T grafield father Hypertension Unknown Abdominal aortic aneurysm (AAA) [...] CONTRAST W/CAD BILATERAL Anastasia Mon PA-C [address] [place] [address] Mr Imaging [facility] Referral ID Status Reason Start Date Expiration Date Visits Requested Visits Authorized [id number] New Request Auto-Generat ed Referral 4 04/11/2025 1 1 Specialty Diagnoses / Procedures Referred By Contac t Referred To Contact [facility] Diagnoses Mass of right breast, unspecified quadrant Nipple discharge Procedures US BREAST LTD RIGHT US BREAST UNI REAL TIME WITH IMAGE LIMITED Anastasia Mon PA-C [address] [place] [address] Br Imaging [address] [place] [address] Referral ID Status Reason Start Date Expiration Date V isits Requested Visits Authorized [id number] Closed Auto-Generate d Referral 03/12/2024 04/20/2024 1 1 Specialty Diagnoses / Procedures [facility] Referred To Contact Diagnoses Family history of breast cancer Procedures CONSULT TO MEDICAL GENETICS - CANCER MEDICAL GENETICS COUNSELING EACH 30 MINUTES Anastasia Mon PA-C [address] [place] [address] [address] Referral ID Status Reason Start Date Expiration Date Visits Requested Visits Authorized [id number] Authorized PCP Requested Referral Auto-Generate d Referral 4 01/29/2025 1 1 Specialty Diagnoses / Procedures [facility] Referred To Contact [facility] Diagnoses Mass of right breast, unspecified quadrant Nipple discharge Procedures US BREAST LTD RIGHT US BREAST UNI REAL TIME WITH IMAGE LIMITED Anastasia Mon PA-C [address] [place] [address] Br Imaging [address] [place] [address] Referral ID Status Reason Start Date Expiration Date V isits Requested Visits Authorized [id number] Closed Auto-Generate d Referral 01/29/2024 02/27/2025 1 1 Specialty Diagnoses / Procedures Referred By Contac t Referred To Contact General Surgery Diagnoses Breast fibroadenoma, right Fibrocystic breast changes of both breasts Mastodynia Dense breasts Procedures CONSULT TO GENERAL SURGERY OFFICE/OUTPATIENT [facility] 60 MINUTES Franchesca Man PA-C [address] [address] Referral ID Status Reason Start Date Expiration Date Visits Requested Visits Authorized [id number] Authorized PCP Requested Referral 09/12/2023 09/11/2024 1 1 Specialty Diagnoses / Procedures Referred By Contac t Referred To Contact Endocrinology Diagnoses Nipple discharge Procedures CONSULT TO ENDOCRINOLOGY OFFICE/OUTPATIENT [facility] 60 MINUTES Franchesca Man PA-C [address] [place] [address] Referral ID Status Reason Start Date Expiration Date Visits Requested Visits Authorized [id number] Authorized PCP Requested Referral 08/07/2023 08/06/2024 1 1 Specialty Diagnoses / Procedures Referred By Contac t Referred To Contact [facility] Diagnoses Fibrocystic breast changes of both breasts Family history of breast cancer Mastodynia Procedures US BREAST LTD RIGHT US BREAST UNI REAL TIME WITH IMAGE LIMITED Franchesca Man PA-C [address] [place] [address] [facility] [address] [place] [address] Referral ID Status Reason Start Date Expiration Date V isits Requested Visits Authorized [id number] Closed Auto-Generate d Referral 08/07/2023 04/20/2024 1 1 Reason Appt time Consult and treat abdominal pain - [facility] x 2 Diagnosis 1 Abdominal pain (R10. 9) Referral Organization [facility] Patterson Referring Provider First Name Mario Referring Provider Last Name Pee Referring Provider Specialty Family Prac cody Referred Organization Unknown Facility Referred Provider Carlos Haq Referred Provider Specialty Surgery Referral Priority Routine General Notes Renetta Damico 2022 08:55:03 AM > Carlos Haq DO, phone [phone]. [facility] recommended Additional Source Comments INFORMATION SOURCE (unrecogn ized section and content) DATE CREATED AUTHOR 03/11/2021 [facility] DATE CREATED AUTHOR AUTHOR'S ORGANIZ ATION 08/15/2022 [facility] DATE CREATED AUTHOR AUTHOR'S ORGANIZ ATION 02/15/2023 [facility] DATE CREATED AUTHOR AUTHOR'S ORGANIZ ATION 10/09/2023 [facility] EPIC DATE CREATED AUTHOR AUTHOR'S ORGANIZ ATION 12/27/2023 [facility] DATE CREATED AUTHOR AUTHOR'S ORGANIZ ATION 2024 [facility] DATE CREATED AUTHOR AUTHOR'S ORGANIZ ATION 03/18/2024 [facility] REASON FOR VISIT (unrecogniz ed section and content) Reason Comments New Patient Pain in both breast, enlarged lymph node in Rt armpit. Establish care Reason Comments Radiology Mammogram Specialty Diagnoses / Procedures Referred By Nikolas t Referred To Contact [facility] Diagnoses Disorder of breast Procedures SAJI DIAGNOSTIC BILATERAL DIAGNOSTIC MAMMOGRAPHY COMPUTER-AIDED DETCJ BI Franchesca Man PA-C [address] [address] [facility] [address] [place] [address] Referral ID Status Reason Start Date Expiration Date V isits Requested Visits Authorized [id number] Closed Auto-Generate d Referral 08/06/2023 09/04/2024 1 [...] 1ST LESION ULTRASOUND GUID Franchesca Man PA-C [address] [address] [facility] [address] [place] [address] Referral ID Status Reason Start Date Expiration Date V isits Requested Visits Authorized [id number] Closed Auto-Generate d Referral 08/11/2023 09/09/2024 1 1 Reason Comments Results Reason Comments New Patient Specialty Diagnoses / Procedures Referred By Nikolas t Referred To Contact General Surgery Diagnoses Breast fibroadenoma, right Fibrocystic breast changes of both breasts Mastodynia Dense breasts Procedures CONSULT TO GENERAL SURGERY OFFICE/OUTPATIENT NEW [facility] 60 MINUTES Franchesca Man PA-C [address] [place] [address] Referral ID Status Reason Start Date Expiration Date V isits Requested Visits Authorized [id number] Closed PCP Requested Referral 09/12/2023 09/11/2024 1 [...] MAMMOGRAPHY COMPUTER-AIDED DETCJ BI Anastasia Mon PA-C [address] [place] [address] [facility] Imaging [address] [place] [address] Referral ID Status Reason Start Date Expiration Date V isits Requested Visits Authorized [id number] Closed Auto-Generate d Referral 01/29/2024 02/27/2025 1 [...] Provider Active St art: July 07, 2023 Production Cook Relationship Specialty Start Date End Date Keli Strickland NP [address] [address] [place] [phone] PCP - General Family Medicine 10/19/16 Erin Chavez MD [address] [place] [address] Urology 01/01/23 Production Cook Relationship Specialty Start Date End Date Keli Strickland NP [address] [place] [address] [place] [address] PCP - General Family Medicine 10/19/16 Erin Chavez MD [address] [place] [address] Urology 01/01/23 Production Cook Relationship Specialty Start Date End Date Keli Strickland NP [address] [place] [address] [place] [address] PCP - General Family Medicine 10/19/16 Erin Chavez MD [address] [place] [address] Urology 01/01/23 Production Cook Relationship Specialty Start Date End Date Keli Strickland NP [address] [place] [phone] PCP - General Family Medicine 10/19/16 Erin Chavez MD [address] [place] [address] Urology 01/01/23 Production Cook Relationship Specialty Start Date End Date Keli Strickland NP [address] [place] [address] [place] [address] PCP - General Family Medicine 10/19/16 Erin Chavez MD [address] [place] [address] Urology 01/01/23 Production Cook Relationship Specialty Start Date End Date Keli Strickland NP [address] [place] [address] [place] [phone] PCP - General Family Medicine 10/19/16 Erin Chavez MD [address] [place] [address] Urology 01/01/23 Production Cook Relationship Specialty Start Date End Date Keli Strickland NP [address] [place] [address] [place] [address] PCP - General Family Medicine 10/19/16 Erin Chavez MD [address] [place] [address] Urology 01/01/23 Production Cook Relationship Specialty Start Date End Date Keli Strickland NP [address] [place] [place] [address] PCP - General Family Medicine 10/19/16 Erin Chavez MD [address] [place] [address] Urology 01/01/23 Production Cook Relationship Specialty Start Date End Date Keli Strickland NP [address] [place] [address] [place] [address] PCP - General Family Medicine 10/19/16 Erin Chavez MD [address] [place] [address] Urology 01/01/23 Production Cook Relationship Specialty Start Date End Date Keli Strickland NP [address] [facility] [place] [address] PCP - General Family Medicine 10/19/16 Erin Chavez MD [address] [place] [address] Urology 01/01/23 Production Cook Relationship Specialty Start Date End Date Keli Strickland NP [address] [facility] [facility] [place] [place] [address] PCP - General Family Medicine 10/19/16 Erin Chavez MD [address] [place] [address] Urology 01/01/23 Production Cook Relationship Specialty Start Date End Date Mario Glasgow DO [address] [place] [address] PCP - General Family Medicine 12/30/23 Erin Chavez MD [address] [place] [address] Urology 01/01/23 Production Cook Relationship Specialty Start Date End Date Mario Glasgow DO [address] [place] [address] PCP - General Family Medicine 12/30/23 Erin Chavez MD [address] [place] [address] Urology 01/01/23 Production Cook Relationship Specialty Start Date End Date PeeMario greeneDO [address] [address] PCP - General Family Medicine 12/30/23 Erin Chavez MD [address] [place] [address] Urology 01/01/23 Production Cook Relationship Specialty Start Date End Date PeeMario greeneDO [address] [address] PCP - General Family Medicine 12/30/23 Erin Chavez MD [address] [place] [address] Urology 01/01/23 Production Cook Relationship Specialty Start Date End Date PeeMario greeneDO [address] [address] PCP - General Family Medicine 12/30/23 Erin Chavez MD [address] [place] [address] Urology 01/01/23 Production Cook Relationship Specialty Start Date End Date Mario Glasgow DO [address] [address] PCP - General Family Medicine 12/30/23 Erin Chavez MD [address] [place] [address] Urology 01/01/23 Production Cook Relationship Specialty Start Date End Date PeeMario greeneDO [address] [address] PCP - General Family Medicine 12/30/23 Erin Chavez MD [address] [place] [address] Urology 01/01/23 Production Cook Relationship Specialty Start Date End Date PeeMario greeneDO [address] [address] PCP - General Family Medicine 12/30/23 Erin Chavez MD [address] [place] [address] Urology 01/01/23 Production Cook Relationship Specialty Start Date End Date PeeMario greene DO Caroline [address] [address] PCP - General Family Medicine 12/30/23 Erin Chavez MD [address] [place] [address] Urology 01/01/23 Production Cook Relationship Specialty Start Date End Date Pee Mario Velazquez DO [address] [address] PCP - General Family Medicine 12/30/23 Erin Chavez MD [address] [place] [address] Urology 01/01/23 Production Cook Relationship Specialty Start Date End Date Mario Glasgow DO [address] [facility] [address] [place] [address] PCP - General Family Medicine 12/30/23 Erin Chavez MD [address] [place] [address] Urology 01/01/23 Production Cook Relationship Specialty Start Date End Date Mario Glasgow DO [address] [facility] [address] [place] [address] PCP - General Family Medicine 12/30/23 Erin Chavez MD [address] [place] [address] Urology 01/01/23 Team Status: Inactive Member Role [...] or prosecute any alcohol or drug abuse patient.[facility] Center[facility] the event this information is protected by the Federal Confidentiality of Alcohol and Drug Abuse Patient Records regulations: The Federal rules restrict any use of the information to criminally investigate or prosecute any alcohol or drug abuse patient.[facility] CenterIn the event this information is protected by the Federal Confidentiality of Alcohol and Drug Abuse Patient Records regulations: The Federal rules restrict any use of the information to criminally investigate or prosecute any alcohol or drug abuse patient.[facility] CenterIn the event this information is protected by the Federal Confidentiality of Alcohol and Drug Abuse Patient Records regulations: The Federal rules restrict any use of the information to criminally investigate or prosecute any alcohol or drug abuse patient.[facility] CenterIn the event this information is protected by the Federal Confidentiality of Alcohol and Drug Abuse Patient Records regulations: The Federal rules restrict any use of the information to criminally investigate or prosecute any alcohol or drug abuse patient.[facility] CenterIn the event this information is protected by the Federal Confidentiality of Alcohol and Drug Abuse Patient Records regulations: The Federal rules restrict any use of the information to criminally investigate or prosecute any alcohol or drug abuse patient.[facility] CenterIn the event this information is protected by the Federal Confidentiality of Alcohol and Drug Abuse Patient Records regulations: The Federal rules restrict any use of the information to criminally investigate or prosecute any alcohol or drug abuse patient.[facility] CenterIn the event this information is protected by the Federal Confidentiality of Alcohol and Drug Abuse Patient Records regulations: The Federal rules restrict any use of the information to criminally investigate or prosecute any alcohol or drug abuse patient.[facility] CenterIn the event this information is protected by the Federal Confidentiality of Alcohol and Drug Abuse Patient Records regulations: The Federal rules restrict any use of the information to criminally investigate or prosecute any alcohol or drug abuse patient.[facility] CenterIn the event this information is protected by the Federal Confidentiality of Alcohol and Drug Abuse Patient Records regulations: The Federal rules restrict any use of the information to criminally investigate or prosecute any alcohol or drug abuse patient.[facility] CenterIn the event this information is protected by the Federal Confidentiality of Alcohol and Drug Abuse Patient Records regulations: The Federal rules restrict any use of the information to criminally investigate or prosecute any alcohol or drug abuse patient.[facility] CenterIn the event this information is protected by the Federal Confidentiality of Alcohol and Drug Abuse Patient Records regulations: The Federal rules restrict any use of the information to criminally investigate or prosecute any alcohol or drug abuse patient.[facility] CenterIn the event this information is protected by the Federal Confidentiality of Alcohol and Drug Abuse Patient Records regulations: The Federal rules restrict any use of the information to criminally investigate or prosecute any alcohol or drug abuse patient.[facility] CenterIn the event this information is protected by the Federal Confidentiality of Alcohol and Drug Abuse Patient Records regulations: The Federal rules restrict any use of the information to criminally investigate or prosecute any alcohol or drug abuse patient.[facility] CenterIn the event this information is protected by the Federal Confidentiality of Alcohol and Drug Abuse Patient Records regulations: The Federal rules restrict any use of the information to criminally investigate or prosecute any alcohol or drug abuse patient.[facility] CenterIn the event this information is protected by the Federal Confidentiality of Alcohol and Drug Abuse Patient Records regulations: The Federal rules restrict any use of the information to criminally investigate or prosecute any alcohol or drug abuse patient.[facility] CenterIn the event this information is protected by the Federal Confidentiality of Alcohol and Drug Abuse Patient Records regulations: The Federal rules restrict any use of the information to criminally investigate or prosecute any alcohol or drug abuse patient.[facility] CenterIn the event this information is protected by the Federal Confidentiality of Alcohol and Drug Abuse Patient Records regulations: The Federal rules restrict any use of the information to criminally investigate or prosecute any alcohol or drug abuse patient.[facility] CenterIn the event this information is protected by the Federal Confidentiality of Alcohol and Drug Abuse Patient Records regulations: The Federal rules restrict any use of the information to criminally investigate or prosecute any alcohol or drug abuse patient.[facility] CenterIn the event this information is protected by the Federal Confidentiality of Alcohol and Drug Abuse Patient Records regulations: The Federal rules restrict any use of the information to criminally investigate or prosecute any alcohol or drug abuse patient.[facility] CenterIn the event this information is protected by the Federal Confidentiality of Alcohol and Drug Abuse Patient Records regulations: The Federal rules restrict any use of the information to criminally investigate or prosecute any alcohol or drug abuse patient.[facility] CenterIn the event this information is protected by the Federal Confidentiality of Alcohol and Drug Abuse Patient Records regulations: The Federal rules restrict any use of the information to criminally investigate or prosecute any alcohol or drug abuse patient.[facility] CenterIn the event this information is protected by the Federal Confidentiality of Alcohol and Drug Abuse Patient Records regulations: The Federal rules restrict any use of the information to criminally investigate or prosecute any alcohol or drug abuse patient.[facility] CenterIn the event this information is protected by the Federal Confidentiality of Alcohol and Drug Abuse Patient Records regulations: The Federal rules restrict any use of the information to criminally investigate or prosecute any alcohol or drug abuse patient.[facility] CenterIn the event this information is protected by the Federal Confidentiality of Alcohol and Drug Abuse Patient Records regulations: The Federal rules restrict any use of the information to criminally investigate or prosecute any alcohol or drug abuse patient.[facility] CenterIn the event this information is protected by the Federal Confidentiality of Alcohol and Drug Abuse Patient Records regulations: The Federal rules restrict any use of the information to criminally investigate or prosecute any alcohol or drug abuse patient.[facility] FOR RECORDS PERTAINING TO PATIENTS WHO ARE [...] BE BASED ON THE PRIMARY CLINICAL RECORDS. [facility] [employer] [facility]. provides no warranty or guarantee of the accuracy or completeness of information in this document.
--- NOTE | 2024-05-04 20:39 | PC.NURSE ---
no wheezing heard, no swelling of lips and tongue.
--- NOTE | 2024-05-04 20:43 | ED_ITS ---
HPI HPI - General Adult General Chief complaint: Allergic Reaction Stated complaint: HIVES ALL OVER BODY Time Seen by Provider: 05/04/24 20:30 Source: patient Mode of arrival: walk-in History of Present Illness HPI narrative: This 34-year-old female who was seen by myself 2 days ago for hives on her hands and knees presents for evaluation of hives that recurred today around 4 PM. The patient was given IM Solu-Medrol and a Medrol Dosepak. Her boyfriend/ went to the pharmacy to pick it up and the pharmacist would not fill it stating that she had registered it as an allergy. She had not informed us that this was an allergy. She states that when she had thrown her back out in the past she was given a prescription for a Medrol dose pack and ended up developing a blister on her breast and her physician told her he thought it was from the Medrol Dosepak and since then she has claimed it as an allergy. She states she went to picker machine operator her boyfriend/'s mom in [place] earlier today and after wards started having hives on her hands. She now has hives on her hands, legs, back and a small swollen area on her left lower lip. She is not having a difficulty breathing or swallowing. She states she took 50 of Benadryl prior to arrival. Related Data Home Medications ?Medication ?Instructions ?Recorded ?Confirmed tizanidine 4 mg tablet 4 mg PO BEDTIME muscle spasticity 11/17/22 03/21/24 alprazolam 2 mg PO BID PRN anxiety 12/24/22 03/21/24 Allergies Allergy/AdvReac Type Severity Reaction Status Date / Time methylprednisolone Allergy Severe Hives Verified 05/04/24 20:33 nitrofurantoin (From Allergy Severe itching Verified 03/21/24 19:21 Macrobid) azithromycin (From Zithromax) Allergy Unknown Unknown Verified 03/21/24 19:21 ciprofloxacin (From Cipro) Allergy Unknown Hives Verified 03/21/24 19:21 ketorolac (From Toradol) Allergy Unknown Unknown Verified 03/21/24 19:21 metoclopramide (From Reglan) Allergy Unknown Unknown Verified 03/21/24 19:21 Penicillins Allergy Unknown Unknown Verified 03/21/24 19:21 zolpidem (From Ambien) AdvReac agitation Verified 03/21/24 19:21 Opioid HPI Opioid Management Most Recent Opioid Data: Last Pain Scale 6 07/25/23 20:44 07/25/23 Review of Systems ROS Status of ROS 10 or more systems reviewed and unremark able except as noted in history and below [facility] History (Updated 05/04/24 @ 21:39 by Ayla Clifford MD) Kidney stones ?N20.0 - Calculus of kidney (ICD-10) POTS (postural orthostatic tachycardia syndrome) ?G90.A - Postural orthostatic tachycardia syndrome [POTS] (ICD-10) Migraines ?G43.909 - Migraine, unspecified, not intractable, without status migrainosus (ICD-10) Seizure ?R56.9 - Unspecified convulsions (ICD-10) History of anxiety ?Z86.59 - Personal history of other mental and behavioral disorders (ICD-10) History of depression ?Z86.59 - Personal history of other mental and behavioral disorders (ICD-10) History of seizure ?Z87.898 - Personal history of other specified conditions (ICD-10) Surgical History (Updated 01/22/23 @ 06:55 by Xochitl Weaver) History of colonoscopy ?Z98.890 - Other specified postprocedural states (ICD-10) History of nephrostomy History of bunionectomy of right great toe ?Z98.890 - Other specified postprocedural states (ICD-10) H/O LEEP ?Z98.890 - Other specified postprocedural states (ICD-10) S/P laparoscopy ?Z98.890 - Other specified postprocedural states (ICD-10) Hx of cystoscopy ?Z98.890 - Other specified postprocedural states (ICD-10) History of hysterectomy ?Z90.710 - Acquired absence of both cervix and uterus (ICD-10) History of tubal ligation ?Z98.51 - Tubal ligation status (ICD-10) Family History (Updated 01/14/23 @ 12:43 by Soraida Blount) Father Family history of COPD (chronic obstructive pulmonary disease) Family history of cancer Family history of myocardial infarction Social History (Updated 01/22/23 @ 06:57 by Xochitl Weaver) Within the past year, how often did you have a drink containing alcohol: monthly or less Smoking status: Never smoker Non-prescribed substance use: denies use Highest level of school completed/degree received: some college, no degree Little interest or pleasure in doing things: not at all Feeling down, depressed, or hopeless: not at all Exam Narrative Exam Narrative: Vital signs and Nursing Notes reviewed: Patient is afebrile with a normal pulse, blood pressure is mildly elevated at 138/98, she is not hypoxic with pulse ox of 97% on room air General: Awake, alert, oriented, no acute distress, lying comfortably on the stretcher HEENT: Normocephalic atraumatic, mucous membranes are moist and pink, eyes are clear, normal conjunctiva, vision is grossly intact, posterior pharynx is normal in appearance. There is no swelling of the tongue, uvula or pharyngeal soft tissues, there is some mild swelling to the left lower lip area without diffuse lip swelling tongue swelling or other oropharyngeal swelling. Her voice is clear without sounding muffled, there is no fullness in her lower neck Neck: Supple, no meningeal signs, no stridor Chest: Lungs are clear to auscultation with good air entry, there is no wheezing rhonchi or rales appreciated no accessory muscle use, patient is speaking in complete sentences-no chest wall tenderness to palpation CVS: Regular rate and rhythm S1-S2, no murmurs rubs or gallops, pulses are brisk and equal bilaterally ABD: Soft, nondistended, nontender, no rebound guarding or rigidity, bowel sounds are normal, no pulsatile masses appreciated Extremities: Moving all extremities, no lower extremity tenderness or swelling noted, negative Homans' sign, pulses are brisk and equal bilaterally Skin: Urticarial wheals on the patient's knuckles, lower legs, lower abdomen and back, no petechiae or purpura noted Neuro: No focal deficits Constitutional Vital Signs, click to edit/add: Last Vital Signs Temp 97.4 F L 05/04/24 20: Pulse 100 H 05/04/24 20: Resp 18 05/04/24 20: BP 138/98 H 05/04/24 20: Pulse Ox 97 05/04/24 20: O2 Del Method Room Air 05/04/24 20:26 Course Vital Signs Vital signs: Vital Signs Temperature 97.4 F L 05/04/24 20:26 Pulse Rate 100 H 05/04/24 20:26 Respiratory Rate 18 05/04/24 20:26 Blood Pressure 138/98 H 05/04/24 20:26 Pulse Oximetry 97 05/04/24 20:26 Oxygen Delivery Method Room Air 05/04/24 20:26 Temperature 97.4 F L 05/04/24 20:26 Pulse Rate 100 H 05/04/24 20:26 Respiratory Rate 18 05/04/24 20:26 Blood Pressure 138/98 H 05/04/24 20:26 Pulse Oximetry 97 05/04/24 20:26 Oxygen Delivery Method Room Air 05/04/24 20:26 Medical Decision Making MDM Narrative Medical decision making narrative: This 34-year-old female presents for evaluation of recurrent hives. She was seen by myself 2 nights ago in this emergency department for similar symptoms. She has not had any new medications, detergents or beauty products. She was medicated with Solu-Medrol Pepcid and Benadryl in the emergency department on Friday night with clinical improvement. I prescribed her a Medrol Dosepak and when she went to the pharmacy she was unable to get the Medrol Dosepak because it is listed as an allergy. Apparently she had had it in the past and developed a blister on her breast and her physician told her that it may be related to the Medrol Dosepak and since then it has been on her allergy list however she forgot to mention that when she was here. She did not have any untoward side effects to the Solu-Medrol here on Friday. She states her hives had completely resolved until today around 4 PM. She does admit that she has a lot of stress because she is helping her boyfriend/ care for his mother who is currently ill. She states that today she went to picker machine operator her 's mother from a hospital in [place] when her hives recurred. On presentation she had hives on her hands, legs, abdomen and back. She also had some very minimal swelling at the left lower lip. There is no swelling of her tongue, uvula pharyngeal soft tissues. She is not having any airway swelling stridor wheezing nausea or vomiting. She had taken 50 mg of Benadryl prior to arrival and was medicated emergency department with IM Decadron, Pepcid and subcu epi. On reevaluation she feels like her symptoms have resolved. The swelling on her lip has definitely resolved and the hives on her hands abdomen and back also appear to be resolving. She is comfortable being discharged home at this time I encouraged her to follow-up closely with her family physician as her hives may be related to anxiety and she may require referral to an dispatcher maintenance service for recurrent hives. Discharge Plan Discharge Chief Complaint: Allergic Reaction Clinical Impression: Urticaria, idiopathic, Urticaria Patient Disposition: Home, Self-Care Time of Disposition Decision: 21:40 Prescriptions / Home Meds: No Action tizanidine 4 mg tablet 4 mg PO BEDTIME alprazolam [Xanax] 2 mg PO BID PRN (Reason: anxiety) Print Language: Albanian Instructions: Urticaria (ED) Additional Instructions: Continue taking your current medications. The steroid injection should last in your system for several days. Continue Benadryl and Pepcid. Use cool showers. Follow-up closely with your family physician as you may need referral to an dispatcher maintenance service for recurrent hives. Referrals: MARIO GUAMAN [Primary Care Provider] - 1 week
[2024-05-04] MEDS: EPINEPHRINE HCL PF 1 MG/ML AMPULE 0.3 MG SUBQ (21:05)
[2024-05-04] MEDS: FAMOTIDINE 20 MG TABLET 40 MG PO (21:06)
[2024-05-04] MEDS: DEXAMETHASONE SOD PHOS 10 MG/ML VIAL IM (21:11)
== END 2024-05-04 21:46 | disposition home or self-care (01) ==
PROVIDERS: Emergency Provider Emergency Medicine; PCP Family Medicine
DX: L50.1 Idiopathic urticaria (principal); Z90.710 Acquired absence of both cervix and uterus; Z98.51 Tubal ligation status
CPT/HCPCS: 96372; 99284; J1100

== ENCOUNTER 2024-12-22 00:52 | Emergency (ER) | payer SELFPAY ==
[2024-12-22 00:56] VITALS: BP 127/73; PULSE 72; TEMP 37; O2SAT 97; BMI 38.6
--- OUTSIDE RECORDS SUMMARY | 2024-12-22 01:04 | XMS_ITS | CCD ---
Author Organization [facility] Care Team Providers Care Cash Applications Coordinator Name Role Phone MARIO GLASGOW Primary Care Physician Carol Ann Chacon Unavailable Unavailable Mario Glasgow Unavailable Vi Benites Unavailable DO Mario Glasgow Primary Care Provider DO Jen Garcia Attending Provider DO Jose Cade Emergency Provider [phone] DO Mario Glasgow Attending Provider DR MARIO GLASGOW Primary Care Unavailable MARKER ., DR HOPKINS Admitting Unavailable MARKER ., DR HOPKINS Attending Unavailable MARKER ., DR HOPKINS Consulting Unavailable PEE, DR MARIO Cullen Primary Care Unavailable SUKHDEV, MORIS Admitting Unavailable MORIS GUERRERO Attending Unavailable ROSAURA .SIVAN Consulting Unavailabl e MORIS GUERRERO Consulting Unavailable PEE, DR MARIO Cullen Primary Care Unavailable SUKHDEV, MORIS Admitting Unavailable MORIS GUERRERO Attending Unavailable KASHIF GUERREROYL Consulting Unavailable ROC ARNOLD Consulting Unavailable PEE, DR MARIO Cullen Primary Care Unavailable SUKHDEV, MORIS Admitting Unavailable MORIS GUERRERO Attending Unavailable MORIS GUERRERO Consulting Unavailable PEE, DR MARIO Cullen Primary Care Unavailable LORI ., QUINTIN Admitting Unavailable JUJU SHIID Attending Unavailable Richelle Bush Consulting Unavailable QUINTIN SHI Consulting Unavailable PEE, DR MARIO Cullen Primary Care Unavailable SUKHDEV, MORIS Admitting Unavailable SUKHDEV, MORIS Attending Unavailable CASE .PHYLICIA Consulting Unavailable SUKHDEV, MORIS Consulting Unavailable JASS GRISSOM Consulting Unavailable PEE, DR MARIO Cullen Primary Care Unavailable SUKHDEV, MORIS Admitting Unavailable MORIS GUERRERO Attending Unavailable ROSAURA .SIVAN Consulting Unavailabl e MORIS GUERRERO Consulting Unavailable LIZZIE YU Consulting Unavailable Erin Chavez Attending Unavailable DO Sonam Montoya Attending Unavailable Pee, DO Mario Morton Primary Care Provider KIKE Alvarez Emergency Provider Pee, DO Mario Morton Primary Care Provider KIKE Alvarez Emergency Provider DO Lucero Belle Attending Provider [phone] Em LASSITER, Keli Cervantes Primary Care Provider Erin Chavez MD Unavailable Em LASSITER, Keli Cervantes Primary Care Provider MORIS GUERRERO Referring Unavailable PRINCE HILTON Attending Unavailable PRINCE HILTON Referring Unavailable Pee, DO Mario Morton Attending Provider [phone] Mario Glasgow DO Primary Care Provider Bhanu Alvarez Admitting Unavailable Bhanu Alvarez Attending Unavailable Pee, Mario Morton Primary Care Unavailable Lucero Belle Attending Unavailable Mario Glasgow Primary Care Unavailable Lucero Belle Admitting Unavailable Pee, Mario Morton Admitting Unavailable Pee, Mario Morton Attending Unavailable Pee, DO Mario Morton Attending Provider Mario Glasgow MD Primary Care Provider Jen Garcia DO Unavailable Brandon Alan MD Primary Care Provider BRANDON ALAN Primary Care Unavailabl e PEE, MARIO VELAZQUEZ Primary Care Unavailable PRINCE MON Referring Unavailable PEE, MARIO VELAZQUEZ Primary Care Unavailable PRINCE MON Attending Unavailable PEE, MARIO VELAZQUEZ Primary Care Unavailable PRINCE MON Attending Unavailable JACKIE SUTTON Referring Unavailable PEE, MARIO VELAZQUEZ Primary Care Unavailable PRINCE MON Attending Unavailable PEE, [facility] Primary Care Unavailable PEE, [facility] Primary Care Unavailable MON, PRINCE Referring Unavailable SPETTEL, KELI A Primary Care Unavailable FRANCHESCA CASTREJON Attending Unavailable DINORAHHURA, JACKIE Referring Unavailable PEE, [facility] Primary Care Unavailable CHICHURA, JACKIE Referring Unavailable PEE, [facility] Primary Care Unavailable PEE, [facility] Primary Care Unavailable LEOBARDO ANDERSON Attending Garcia STRICKLAND, KELI A Primary Care Unavailable CHICHURA, JACKIE Attending Unavailable CHICHURA, JACKIE Admitting Unavailable MON, PRINCE Attending Unavailable PEE, [facility] Primary Care Unavailable PEE, [facility] Primary Care Unavailable MON, PRINCE Referring Unavailable PEE, [facility] Primary Care Unavailable MON, PRINCE Referring Unavailable PEE, [facility] Primary Care Unavailable TEGAN NICHOLS Attending Unavailable SELF Referring Unavailable PEE, [facility] Primary Care Unavailable JENNIFER RASHID Referring Unavailable SPETTEL, KELI A Primary Care Unavailable FRANCHESCA CASTREJON Referring Unavailable SPETTEL, KELI A Primary Care Unavailable FRANCHESCA CASTREJON Referring Unavailable SPETTEL, KELI A Primary Care Unavailable SHABBIRRA, JACKIE Attending Unavailable FRANCHESCA CASTREJON Referring Unavailable PEE, [facility] Primary Care Unavailable MONPRINCE LAWS Referring Unavailable CHICHURA, JACKIE Referring Unavailable PEE, [facility] Primary Care Unavailable Pee , [place] Primary Care Provider Pee CUADRA [place] Primary Care Provider RICHELLE MORATAYA Attending Unavailable PEE, [place] Referring Unavailable LUCERO BELLE Attending Unavailable JEN GARCIA Attending Unavailable VASU HILTON Attending Unavailable JENIFER SHEPPARD Attending Unavailable JENIFER SHEPPARD Referring Unavailable JENIFER SHEPPARD Referring Unavailable VASU HILTON Attending Unavailable Pee CUADRA, [place] Primary Care Provider [phone] PeeMario greene DO Primary Care Provider Pee Mario HERNANDEZ Attending Provider [phone] Allergies Allergy Classification Reported Allergen(s) Allergy Type Date of Onset Reaction(s) Facility (20 sources) Azithromycin; Translations: [azithromycin] Drug Allergy 03-31-20 12 Unknown, Rash [facility] Other (16 sources) cefTRIAXone; Translations: [ceftriaxone] Drug Allergy 12-19-19 23 Mean (qualifier value) [facility] (20 sources) Ciprofloxacin; Translations: [ciprofloxacin] Drug Allergy 03-31-20 12 Unknown, Itching, Rash [facility] Other (20 sources) Dicyclomine; Translations: [dicyclomine] Drug Allergy 03-06-20 21 Unknown, Other [facility] (20 sources) Ketorolac; Translations: [ketorolac] Drug Allergy 03-06-20 21 Unknown [facility] Other Comment on above: patients it makes he r mean (20 sources) Metoclopramide; Translations: [metoclopramide] Drug Allergy 03-31-20 12 Unknown, Itching, Rash [facility] Other Comment on above: diarrhea (20 sources) Morphine; Translations: [morphine] Drug Allergy 06-03-19 24 Unknown [facility] Other Comment on above: causes hives (20 sources) NITROFURANTOIN, MACROCRYSTALS / Nitrofurantoin, Monohydrate; Translations: [nitrofurantoin] Drug Allergy Itching, Unknown [facility] Other (20 sources) Penicillin; Translations: [penicillin] Drug Allergy Unknown (qualifier value) [facility] Other (16 sources) zolpidem; Translations: [zolpidem] Drug Allergy 12-19-19 23 Unknown [facility] (20 sources) diphenhydrAMINE Drug Allergy IV Hives [employer] [facility] Other (20 sources) LORazepam; Translations: [LORAZEPAM] Drug Allergy 03-06-20 21 Unknown, Other (See Comments) [facility] Comment on above: patient states it ma kes her violent (20 sources) Penicillin V Drug Allergy Unknown [facility] Other (10 sources) diphenhydrAMINE Drug Allergy IV Hives [facility] Other (20 sources) DULoxetine Drug Allergy 06-03-19 24 worsen depression [facility] (20 sources) Nitrofurantoin; Translations: [nitrofurantoin] Drug Allergy 03-31-20 12 Unknown, Rash, Hives, Itching [facility] (20 sources) Penicillins; Translations: [Penicillins] Allergy to substance 03-31-20 12 Unknown, Other (See Comments) [facility] (1 source) Azithromycin Drug Allergy 09-17-19 13 [facility] (1 source) Ciprofloxacin Drug Allergy 09-17-19 13 [facility] (1 source) Dicyclomine Drug Allergy 07-20-19 15 [facility] (1 source) Iothalamate Drug Allergy 09-17-19 13 [facility] (1 source) Ketorolac Drug Allergy 03-11-20 13 [facility] (1 source) LORazepam Drug Allergy 09-10-19 16 [facility] (1 source) Nitrofurantoin Drug Allergy 09-17-19 13 [facility] (1 source) LORazepam; Translations: [Ativan] Drug Allergy [facility] (20 sources) methylPREDNISolone ; Translations: [methylprednisolon e] Drug Allergy 12-26-19 Other: See Comments, Rash, Unknown [facility] (20 sources) predniSONE; Translations: [PREDNISONE] Drug Allergy 12-26-[address] [facility] (1 source) Metoclopramide; Translations: [METOCLOPRAMIDE HCL] Drug Allergy 12-17-19 [facility] (1 source) NITROFURANTOIN MONOHYD/M-CRYST; Translations: [NITROFURANTOIN MONOHYD/M-CRYST] Propensity to adverse reactions to drug (disorder) 12-17-19 [facility] (1 source) Azithromycin Drug Allergy 10-08-19 [facility] (1 source) Ciprofloxacin Drug Allergy 10-08-19 [facility] (1 source) Dicyclomine Drug Allergy 10-08-19 [facility] (1 source) DULoxetine Drug Allergy 10-08-19 [facility] (1 source) Ketorolac Drug Allergy 10-08-19 [facility] (1 source) LORazepam Drug Allergy 10-08-19 [facility] (1 source) Metoclopramide Drug Allergy 10-08-19 [facility] (1 source) Morphine Drug Allergy 06-03-19 [facility] (13 sources) Dicyclomine Drug Allergy 11-07-19 [facility] (13 sources) HYDROcodone Drug Allergy 11-07-19 [facility] (12 sources) Ketorolac Propensity to adverse reactions 11-07-19 Itching, Unknown [facility] (12 sources) Lorazepam Propensity to adverse reactions 03-06-20 21 Unknown [facility] (12 sources) Nitrofurantoin Drug Allergy 06-17-19 Unknown [facility] (1 source) Ketorolac Drug Allergy 11-07-[address] [facility] Medications Current Medications Medication Drug Class(es) Dates Sig (Normalized) Sig (Original) acetaminophen 325 mg oral tablet (20 sources) Start: 01-08-2024 take 2 tablets by mouth every six hours as needed acetaminophen (TYLENOL) 325 mg tablet Take 2 tablets by mouth every 6 hours as needed (for pain.). 20 tablet 01/08/2024 Active Acetaminophen / HYDROcodone (14 sources) Opioid Agonist Start: 05-16-2021 [place] 5/325 Tab Oral, q6hr, Refill(s) 0 Start Date: 05/16/21 Status: Ordered Start: 05-08-2021 take 1 tablet by karl th every six hours HYDROcodone-Acetaminophen 5-325 MG 1 tab let as needed Orally every 6 hrs for 5 days Apr, Not-Taking Start: 05-08-2021 take 1 tablet by karl th every six hours busPIRone hydrochloride 10 mg oral tablet (1 source) take 1 tablet by mouth twice daily busPIRone (BUSPAR) 10 MG tablet Take 10 mg by mouth 2 times daily Active estradiol 1 mg oral tablet (17 sources) Estrogen Start: 06-02-19 End: 06-02-19 take 1 tablet by mouth once daily Estradiol 1 mg tablet Active 1 MG PO Daily July 26, 2024 12:00am Complies with drug therapy Extra Strength Acetaminophen (15 sources) Extra Strength [...] 90 tab(s), Refills(s) 3, Bladder problems, Pharmacy: [facility]/pharmacy #[id number], 165, cm, 05/18/21 11:56:00 EST, Height/Length Dosing, 100, kg, 05/16/21 9:54:00 EST, Weight Dosing Start Date: 05/21/21 Status: Ordered montelukast 10 mg oral tablet (20 sources) Leukotriene Receptor Antagonist Start: 06-25-19 23 take 1 tablet by mouth once daily Montelukast 10 mg tablet Active 10 MG PO Daily July 07, 2023 12:00am Complies with drug therapy ondansetron 4 mg oral tablet (20 sources) Serotonin-3 Receptor Antagonist Start: 01-09-20 24 take 1 tablet by mouth every eight hours as needed ondansetron (ZOFRAN) 4 mg tablet Take 1 tablet by mouth every 8 hours as needed for nausea/vomiting. 12 tablet 01/09/2024 Active Start: 06-03-2023 End: 05-11-2024 take 1 tablet by mouth four times daily as needed for nausea and vomiting Ondansetron 4 mg tablet,disintegrating Discontinued 4 MG PO Four times daily as needed for nausea and vomiting June 03, 2023 1:00am August 27, 2023 4:26pm Start: 05-02-2022 End: 08-27-2023 take 1 tablet by mouth every six hours Ondansetron 4 mg Tablet,Disintegrating Discontinued 4 MG PO Q6H May 02, 2022 1:00am August 27, 2023 4:26pm Start: 01-29-2021 End: 06-03-2023 Ondansetron Hcl (Zofran) 4 m g tablet Discontinued 4 MG PO every 6 to 8 hours as needed for nausea and vomiting January 29, 2021 12:00am June 03, 2023 2:33pm Start: 08-21-2017 End: 08-24-2017 take 1 tablet by mouth every eight hours as needed for nausea Ondansetron (Zofran Odt) 8 mg tablet,disintegrating Discontinued 8 MG PO Q8H as needed for nausea 5 August 21, 2017 12:00am August 23, 2017 12:00am August 24, 2017 12:01am Start: 03-14-2017 End: 06-04-2017 take 1 tablet by mouth every eight hours as needed for nausea Ondansetron (Zofran Odt) 4 mg tablet,disintegrating Discontinued 4 MG PO Q8H as needed for nausea March 14, 2017 1:00am June 04, 2017 3:00am oxyCODONE hydrochloride 5 mg oral tablet (2 [...] tablet (20 sources) Sympathomimetic Amine Anorectic Start: 07-26-2024 End: 08-28-2024 take 1 tablet by mouth once daily Phentermine 37.5 mg tablet Active 37.5 MG PO Daily August 28, 2024 3:17pm Complies with drug therapy Start: 09-17-2022 End: 05-11-2024 take 1 tablet by mouth once daily Phentermine 37.5 mg tablet Discontinued 37.5 MG PO Daily December 26, 2023 10:46am February 23, 2024 4:03pm Start: 12-25-2021 take 1 tablet by karl [...] 21, 2017 12:00am December 22, 2018 4:27pm predniSONE 20 mg oral tablet (2 sources) Start: 09-08-2024 End: 09-18-2024 take 2 tablets by mouth once daily, then take 1 tablet by mouth once daily at mealtime predniSONE (Deltasone) 20 MG tablet Indications: Right hip pain , Right hip impingement syndrome Take 2 tablets (40 mg) by mouth Daily for 5 days, THEN 1 tablet (20 mg) Daily for 5 days. Take with food. 15 tablet 09/08/2024 09/18/2024 Active sulfacetamide sodium 100 mg/ml ophthalmic solution [...] pain, # 12 tab(s), Refills(s) 0, Pharmacy: [facility]/pharmacy #[id number], 165, cm, 11/22/22 19:18:00 EDT, Height/Length Dosing, 103, kg, 11/22/22 19:18:00 EDT, Weight Dosing Start Date: 11/23/22 Status: Ordered Start: 05-02-2022 End: 06-03-2023 take 1 tablet by mouth every four hours as needed for pain Tramadol 50 mg Tablet Discontinued 50 MG PO Q4H as needed for Pain scale 1 - 4 07 11May 02, 2022 1:00am June 03, [...] 6 hours for 7 days Mar, Active tranexamic acid 650 mg oral tablet (1 source) Antifibrinolytic Agent take 1 tablet by mouth three times daily tranexamic acid (LYSTEDA) 650 MG TABS tablet Take 650 mg by mouth 3 times daily Active traZODone hydrochloride 150 mg oral tablet (1 source) Serotonin Reuptake Inhibitor take 1 tablet by mouth once daily as needed for sleep traZODone (DESYREL) 150 MG tablet Take 150 mg by mouth nightly as needed for Sleep Active valACYclovir 1000 mg oral tablet (20 sources) Herpesvirus Nucleoside Analog DNA Polymerase Inhibitor, Herpes Simplex Virus Nucleoside Analog DNA Polymerase Inhibitor, Herpes Zoster Virus Nucleoside Analog DNA Polymerase Inhibitor Start: 01-02-20 valACYclovir (Valtrex) 1 g tablet if needed 01/01/2023 Active Start: 04-10-2022 End: 10-18-2024 Valacyclovir 1 gram tablet A ctive 1000 MG PO Twice daily as needed for Cold Sores 07 02October 18, 2024 1:41pm Complies with drug therapy Start: 04-10-2022 End: 08-22-2023 take 1000 mg [...] mg / caffeine 40 mg oral capsule (12 sources) Barbiturate, Central Nervous System Stimulant, Methylxanthine Start: 06-03-2023 End: 08-27-2023 take 1 capsule by mouth every six hours as needed for pain Butalbital-Acetam inophen-Caff (Fioricet) 50-300-40 mg capsule Discontinued 1 CAP PO Q6H as needed for pain 03 23June 03, 2023 1:00am August 27, 2023 4:26pm acetaminophen 325 mg / oxyCODONE hydrochloride 5 mg oral tablet (20 sources) Opioid Agonist Start: 09-03-2017 End: 09-07-2017 take 1 tablet by mouth every four to six hours as needed for pain Oxycodone-Acetami nophen 5-325 mg tablet Discontinued 1 TAB PO EVERY 4-6 HOURS as needed for pain September 03, 2017 September 06, 2017 12:00am September 07, 2017 12:02am Start: 08-21-2017 End: 11-21-2017 take 2 tablets by mouth every four hours as needed for pain Oxycodone-Acetaminophen (Percocet) 5-325 mg tablet Discontinued 2 TAB PO Q4H as needed for pain August 21, 2017 November 21, 2017 7:33pm take 1 tablet by karl th every six hours Percocet 5-325 MG 1 tablet as needed Orally every 6 hrs Not-Taking ALPRAZolam 2 mg oral tablet (20 sources) Benzodiazepine Start: 06-06-2023 End: 09-20-2024 take 1 tablet by mouth twice daily as needed for anxiety Alprazolam 2 mg tablet Discontinued 2 MG PO Twice daily as needed for anxiety 60 July 07, 2023 2:20pm August 13, [...] as needed for Anxiety March 14, 2017 1:00am June 06, 2023 11:26am take 1 tablet by karl three times daily as needed for sleep ALPRAZolam (XANAX) 1 MG tablet Take 1 mg by mouth 3 times daily as needed for Sleep Active Comment on above: Take 1 mg by mouth t wice daily as needed. ARIPiprazole 2 mg oral tablet (17 sources) Atypical Antipsychotic Start: 03-14-2017 End: 06-04-2017 Aripiprazole (Abilify) 2 mg Tablet Discontinued March 14, 2017 1:00am June 04, 2017 2:59am Start: 03-14-2017 End: 06-04-2017 Aripiprazole (Abilify) 2 mg Tablet Discontinued TABLET March 14, 2017 1:00am June 04, 2017 2:59am bisacodyl 5 mg delayed release oral tablet (2 sources) Stimulant Laxative Start: 11-18-2022 End: 05-11-2024 take 1 tablet by mouth twice daily as needed for constipation Bisacodyl EC 5 MG EC tablet TAKE 1 TABLET BY MOUTH TWICE A DAY NEEDED FOR CONSTIPATION 11/18/2022 05/11/2024 Discontinued (Therapy completed) cephalexin 500 mg oral capsule (17 sources) Cephalosporin Antibacterial Start: 09-08-2017 End: 11-21-2017 take 1 capsule by mouth four times daily Cephalexin (Keflex) 500 mg capsule Discontinued 500 MG PO Four times daily 40 September 08, 2017 12:00am November 21, 2017 7:33pm cyclobenzaprine hydrochloride 10 mg oral tablet (17 sources) Muscle Relaxant Start: 03-14-2017 End: 06-04-2017 take 1 tablet by mouth three times daily as needed for pain Cyclobenzaprine 10 mg tablet Discontinued 10 MG PO Three times daily as needed for PAIN/SPASM March 14, 2017 1:00am June 04, 2017 3:00am 1 ml diphenhydrAMINE hydrochloride 50 mg/ml cartridge (1 source) Histamine-1 Receptor Antagonist Start: 05-18-2024 End: 05-18-2024 25 mg, IntraVENous, ONCE, 1 dose, On Fri05/18/24 at 1134, IV Push at rate not to exceed 25 mg/min. doxycycline hyclate 100 mg oral capsule (8 sources) Tetracycline-clas s Drug Start: 02-23-2024 End: 04-26-2024 take 1 capsule by mouth twice daily Doxycycline Hyclate 100 mg capsule Discontinued 100 MG PO Twice daily 07 02February 23, 2024 1:00am April 26, 2024 3:37pm Start: 06-21-2021 take 1 tablet by karl once daily doxycycline hyclate 100 mg Tab 100 mg = 1 tab(s), Oral, BID, Take 1 tablet the day prior to scheduled procedure, take 2nd tablet the day of procedure, # 2 tab(s), Refills(s) 0, Pharmacy: [facility]/pharmacy #[id number], 165, cm, 05/18/21 11:56:00 EST, Height/Length Dosing, 100, kg, 05/16/21 9:5... Start Date: 06/21/21 Status: Ordered 2 ml droperidol 2.5 mg/ml injection (1 source) Dopamine-2 Receptor Antagonist Start: 05-18-2024 End: 05-18-2024 1.25 mg, IntraVENous, ONCE, 1 dose, On Fri05/18/24 at 1134 ergocalciferol 1.25 mg oral capsule (20 sources) Provitamin D2 Compound Start: 07-17-2020 take 1 capsule by mouth every week Vitamin D (Ergocalciferol) 1.25 MG (30559 UT) 1 capsule Orally weekly for 30 day(s) Jun, Not-Taking famotidine 20 mg oral tablet (3 sources) Histamine-2 Receptor Antagonist Start: 05-07-2024 End: 08-27-2024 take 1 mg by mouth twice daily Famotidine 20 mg tablet Discontinued MG PO Twice daily May 07, 2024 1:00am August 27, 2024 9:42am gabapentin 100 mg oral capsule (7 sources) Anti-epileptic Agent Start: 01-08-2024 End: 02-17-2024 take 1 capsule by mouth once daily at bedtime gabapentin (NEURONTIN) 100 mg capsule Take 1 capsule by mouth daily at bedtime for 5 days. 5 capsule 01/08/2024 02/17/2024 Discontinued (Discontinued by Patient) take 1 capsule by mo [facility] three times daily gabapentin (NEURONTIN) 100 MG capsule Ta ke 100 mg by mouth 3 times daily Active ibuprofen 600 mg oral tablet (20 sources) [...] as needed for pain March 14, 2017 1:00am June 04, 2017 3:00am [facility] needed for pain ibuprofen (ADVIL;MOTRIN) 200 MG tablet Take 200 mg by mouth every 6 hours as needed for Pain Active iv contrast (will be provided with radiology [...] 03/12/2024 03/13/2024 lamoTRIgine 25 mg oral tablet (17 sources) Mood Stabilizer, Anti-epilepti c Agent Start: 06-12-2017 End: 11-21-2017 take 4 tablets by mouth twice daily Lamotrigine 25 mg tablet Discontinued 100 MG PO Twice daily June 12, 2017 1:00am November 21, 2017 7:33pm Start: 06-12-2017 End: 11-21-2017 take 100 mg by mouth twice daily Lamotrigine Discontinued 100 MG PO Twice daily June 12, 2017 12:00am November 21, 2017 6:33pm levothyroxine sodium 0.075 mg oral tablet (17 sources) l-Thyroxine Start: 12-22-2018 End: 04-25-2021 take 1 tablet by mouth once daily Levothyroxine 75 mcg tablet Discontinued 75 MCG PO Daily December 22, 2018 12:00am April 25, 2021 2:41pm Lidocaine (3 sources) Antiarrhythmic, Amide Local Anesthetic Start: 07-07-2024 End: 07-07-2024 OTHER, X (OR/PROCEDURE) PRN, Starting on Fri07/07/24 at 0804, Until Fri07/07/24 at 0804, Intraprocedure Start: 01-07-2024 End: 01-07-2024 SUBCUTANEOUS, X (OR/PROCEDUR E) PRN, Starting on Fri01/07/24 at 1006, Until [...] End: 12-22-2018 Metformin 500 mg tablet Discontinued June 24, 2018 1:00am December 22, 2018 4:27pm Start: 06-24-2018 End: 12-22-2018 Metformin 500 mg tablet Disc ontinued TABLET June 24, 2018 1:00am December 22, 2018 4:27pm Start: 06-24-2018 End: 12-22-2018 Metformin Discontinued TABLE T June 24, 2018 12:00am December 22, 2018 3:27pm Start: 09-03-2017 End: 11-21-2017 Metformin 500 mg tablet Disc ontinued 250 MG PO Twice daily September 03, 2017 12:00am November 21, 2017 7:33pm Start: 09-03-2017 End: 11-21-2017 take 250 mg by mouth twice daily Metformin Discontinued 250 MG PO Twice daily September 02, 2017 11:00pm November 21, 2017 6:33pm Start: 03-14-2017 End: 09-03-2017 Metformin 1,000 mg Tablet Discontinued 250 MG PO Twice daily March 14, 2017 1:00am September 03, 2017 12:54pm Start: 03-14-2017 End: 09-03-2017 take 250 mg by mouth twice daily Metformin Discontinued 250 MG PO Twice daily March 14, 2017 12:00am September 03, 2017 11:54am naproxen 500 mg oral tablet (17 sources) Nonsteroidal Anti-inflammatory Drug Start: 12-04-2019 End: 04-25-2021 take 1 tablet by mouth every twelve hours as needed for pain Naproxen 500 mg tablet Discontinued 500 MG PO Q12H as needed for pain December 04, 2019 12:00am April 25, 2021 2:41pm phenazopyridine hydrochloride 200 mg oral tablet (17 sources) Start: 09-08-2017 End: 11-21-2017 take 1 tablet by mouth three times daily at mealtime Phenazopyridine 200 mg tablet Discontinued 200 MG PO Three times daily as needed for urinary retention 01 21September 08, 2017 12:00am November 21, 2017 7:33pm administer with a full glass of water after each meal sulfamethoxazole 800 mg / trimethoprim 160 mg oral tablet (20 sources) Dihydrofolate Reductase Inhibitor Antibacterial, Sulfonamide Antimicrobial Start: 12-26-2023 End: 02-23-2024 take 1 tablet by mouth every twelve hours Sulfamethoxazole-T rimethoprim (Bactrim Ds) 800-160 mg tablet Discontinued 1 TAB PO Every 12 hours 14 December 26, 2023 12:00am February 23, 2024 3:47pm Start: 01-29-2021 End: 04-25-2021 take 1 tablet by mouth twice daily Sulfamethoxazole-Trimethoprim (Bactrim D s) 800-160 mg tablet Discontinued 1 TAB PO Twice daily January 29, 2021 12:00am April 25, 2021 2:41pm tamsulosin hydrochloride 0.4 mg oral capsule (17 sources) alpha-Adrenergic Jimmie Start: 09-08-2017 End: 11-21-2017 [...] 2021 2:41pm Start: 06-04-2017 End: 12-22-2018 take 1 capsule by mouth once daily at bedtime Temazepam 30 mg capsule Discontinued 30 MG PO Daily at bedtime June 04, 2017 1:00am December 22, 2018 4:27pm tiZANidine 4 mg oral tablet (20 sources) Central alpha-2 Adrenergic Agonist Start: 12-19-2023 End: 10-13-2024 take 1 tablet by mouth every eight hours as needed Tizanidine 4 mg tablet Discontinued 4 MG PO Every 8 hours as needed for muscle spasticity February 23, 2024 3:48pm June 18, 2024 1:19pm Start: 06-30-2023 End: 12-19-2023 take 1 tablet by mouth every eight hours as needed Tizanidine 4 mg tablet Discontinued 0 .ROUTE .COMPLEX August 27, 2023 4:48pm December 19, 2023 9:43am TAKE 1 TABLET BY MOUTH EVERY 8 HOURS NEEDED FOR BACK SPAMS Start: 06-30-2023 End: 06-30-2023 take 1 tablet by mouth three times daily as needed Tizanidine 4 mg tablet Discontinued 4 MG PO Three times daily as needed for muscle spasticity June 30, 2023 12:00am June 30, 2023 1:00pm Start: 06-03-2023 End: 06-03-2023 take 1 tablet by mouth every eight hours as needed for muscle spasms Tizanidine 4 mg tablet Discontinued 4 MG PO Every 8 hours as needed for back spasms 90 30 June 03, 2023 12:53pm June 03, 2023 2:33pm Start: 05-16-2021 Zanaflex Oral, Refills(s) 0 Start Date: 05/16/21 Status: Ordered Start: 04-25-2021 End: 06-03-2023 take 1 tablet by mouth once daily at bedtime Tizanidine 4 mg tablet Discontinued 4 MG PO Daily at bedtime April 25, 2021 1:00am June 03, 2023 12:56pm tizanidine HCl ( ZANAFLEX ORAL) Zanaflex Active take 1 tablet by karl th every eight hours Zanaflex 4 MG 1 tablet as needed Orally Three times a day for 30 days Active topiramate 25 mg oral tablet (17 sources) Start: 01-27-2019 End: 04-25-2021 take 1 mg by mouth twice daily Topiramate 25 mg tablet Discontinued 1 MG PO Twice daily January 27, 2019 12:00am April 25, 2021 2:41pm Start: 01-27-2019 End: 04-25-2021 take 1 mg by mouth twice daily Topiramate Discontinued 1 MG PO Twice daily January 26, 2019 11:00pm April 25, 2021 1:41pm Problems Active Problems Problem Classification Problem Date Documented Da te Episodic/Chronic Abdominal pain (20 sources) Abdominal pain; Translations: [Unspecified abdominal pain] Onset: 05-02-2021 Resolved: 05-02-2021 Episodic Acquired foot deformities (12 sources) Acquired hallux valgus; Translations: [Hallux valgus (acquired), unspecified foot] Onset: 06-17-2023 06-17-2023 Chronic Administrative/social admission (1 source) Stress, not elsewhere classified; Translations: [STRESS NOT ELSEWHERE CLASSIFIED] Onset: 04-27-2023 Episodic Allergic reactions (3 sources) Erythema ab igne [dermatitis ab igne]; Translations: [Urticaria, unspecified] Onset: 12-12-2021 Resolved: 12-12-2021 Episodic Anxiety disorders (20 sources) Anxiety; Translations: [Anxiety disorder, unspecified] Onset: 05-30-2021 Resolved: 05-30-2021 07-02-2013 Chronic Calculus of urinary tract (20 sources) History of calculus of kidney; Translations: [Personal history of urinary calculi] Onset: 08-15-2021 Episodic Cardiac dysrhythmias (20 sources) Postural orthostatic tachycardia syndrome ; Translations: [POTS (postural orthostatic tachycardia syndrome)] Onset: 01-06-2024 01-06-2024 Chronic Diabetes mellitus without complication (20 sources) Impaired fasting glycemia; Translations: [Impaired fasting glucose] Episodic Epilepsy; convulsions (19 sources) Seizure; Translations: [Epilepsy, unspecified, not intractable, [...] Translations: [Other malaise and fatigue] 08-27-2023 Episodic Miscellaneous mental health disorders (20 sources) Dissociative convulsions; 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] 06-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 Mood disorders (4 sources) Depressive disorder; Translations: [Major depressive disorder, single episode, unspecified] Onset: 02-11-2022 07-02-2013 Chronic Mood disorders (1 source) Disturbance in mood; Translations: [Emotional lability] 06-02-2024 Episodic Mood disorders (1 source) Mood disorders; Translations: [DEPRESSION UNSPECIFIED] Onset: 08-15-2022 Nausea and vomiting (19 sources) Nausea; Translations: [Nausea] Onset: 04-29-2022 01-27-2019 Episodic Nonmalignant breast conditions (20 sources) Fibrocystic changes of bilateral breasts; Translations: [Diffuse cystic mastopathy of right breast] Onset: 06-17-2023 08-07-2023 Chronic Nutritional deficiencies (20 sources) Vitamin D deficiency; Translations: [Vitamin D deficiency, unspecified] Onset: 09-27-2021 Resolved: 09-27-2021 Chronic Other aftercare (1 source) Other half-way (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 therapy; Translations: [OTH ALF CURRENT DRUG THERAPY] Onset: 08-15-2022 Episodic Other circulatory disease (6 sources) Postural orthostatic tachycardia syndrome 06-06-2016 Episodic Other connective tissue disease (2 sources) Other symptoms and signs involving the musculoskeletal system; Translations: [Other musculoskeletal symptoms referable to limbs] 04-26-2024 Episodic Other connective tissue disease (1 source) Pain in right arm; Translations: [Pain in right arm] 05-18-2024 Episodic Other connective tissue disease (1 source) Pain in right arm; Translations: [Pain in right arm] Onset: 05-18-2024 Episodic Other connective tissue disease (4 sources) Plantar fasciitis; Translations: [Plantar fascial fibromatosis] 08-05-2024 Episodic Other connective tissue disease (2 sources) Pain of left heel; Translations: [Pain in left foot] 08-05-2024 Episodic Other diseases of bladder and urethra (4 sources) Urethral stricture; Translations: [Other urethral stricture, female] Onset: 08-15-2021 Episodic Other diseases of kidney and ureters (3 sources) Hydronephrosis 05-16-2021 Episodic Other female genital disorders (4 sources) Deep pain on intercourse; Translations: [Deep dyspareunia] Onset: 06-17-2023 06-17-2023 Chronic Other gastrointestinal disorders (20 sources) Irritable [...] Onset: 11-22-2022 Chronic Other nervous system disorders (2 sources) Anesthesia of skin; Translations: [Disturbance of skin sensation] 04-26-2024 Episodic Other nervous system disorders (2 sources) Paresthesia; Translations: [Paresthesia of skin] 05-11-2024 Episodic Other non-traumatic joint disorders (4 sources) Hip pain; Translations: [Pain in right hip] 09-08-2024 Episodic Other non-traumatic joint disorders (6 sources) Enthesopathy of hip region; Translations: [Other specified joint disorders, right hip] 09-08-2024 Episodic Other nutritional; endocrine; and metabolic disorders [...] Chronic Other nutritional; endocrine; and metabolic disorders (11 sources) Body mass index (BMI) 38.0-38.9, adult; Translations: [Body Mass Index 38.0-38.9, adult] Onset: 09-27-2021 Resolved: 10-01-2021 Chronic Other nutritional; endocrine; and metabolic disorders (2 sources) Body mass index (BMI) 36.0-36.9, adult Onset: 11-21-2021 Resolved: 12-25-2021 Chronic Other nutritional; endocrine; and metabolic disorders (10 sources) Body mass index (BMI) 39.0-39.9, adult; Translations: [Body Mass Index 39.0-39.9, adult] Chronic Other upper respiratory disease (18 sources) Seasonal allergy; Translations: [Other seasonal allergic rhinitis] Chronic Other upper respiratory disease (1 source) Other seasonal allergic rhinitis Chronic Other upper respiratory infections (3 sources) Chronic sinusitis, unspecified; Translations: [Unspecified sinusitis (chronic)] 02-23-2024 Chronic Residual codes; unclassified (20 sources) Sedative, hypnotic AND/OR anxiolytic-induced sleep disorder; Translations: [Other sleep disorders] Chronic Residual codes; unclassified (20 sources) Daytime somnolence; Translations: [Other hypersomnia] Chronic Residual codes; unclassified (20 sources) Hypnagogic hallucinations; Translations: [Other hallucinations] Episodic Residual codes; unclassified (20 sources) Insomnia; Translations: [Insomnia, unspecified] Episodic Residual codes; unclassified (6 sources) Family history of breast cancer; Translations: [Family history of malignant neoplasm of breast] 08-07-2023 Episodic Residual codes; unclassified (1 source) Postoperative state; Translations: [Other specified postprocedural states] 01-19-2024 Episodic Residual codes; unclassified (2 sources) Lack of awareness; Translations: [Unspecified symptoms and signs involving cognitive functions and awareness] 05-11-2024 Episodic Residual codes; unclassified (1 source) Flushing; Translations: [Flushing] 06-02-2024 Episodic Residual codes; unclassified (1 source) Reduced libido; Translations: [Decreased libido] 06-02-2024 Episodic Spondylosis; intervertebral disc disorders; other back problems (4 sources) Dorsalgia, unspecified; Translations: [Muscle spasm of back] Onset: 12-17-2023 Episodic Sprains and strains (20 sources) Strain of neck muscle; Translations: [Strain of muscle, fascia and tendon at neck level, initial encounter] Onset: 04-02-2022 06-22-2017 Episodic Substance-related disorders (3 sources) Smoker 07-24-2016 Chronic Comment on above: Added secondary to d ocumentation in Social History. Superficial injury; contusion (18 sources) Abrasion of foot; Translations: [Abrasion, unspecified foot, initial encounter] Onset: 02-11-2022 12-04-2019 Episodic Syncope (3 sources) Syncope 02-16-2017 Episodic Unclassified (1 source) ADENOMYOSIS OF THE UTERUS; Translations: [ADENOMYOSIS OF THE UTERUS] Onset: 04-29-2022 Unclassified (1 source) Low back pain, unspecified; Translations: [Low back pain, unspecified] Onset: 12-17-2023 Unclassified (1 source) Unspecified convulsions; Translations: [Unspecified convulsions] Onset: 06-03-2023 Unclassified (1 source) Dense breasts; Translations: [Dense breasts] Onset: 08-07-2023 Unclassified (1 source) Z68.38 - Body mass index [BMI] 38.0-38.9, adult Urinary tract infections (20 sources) Acute cystitis; Translations: [Acute cystitis without hematuria] Onset: 08-15-2021 Episodic Viral infection (3 sources) Herpes simplex 07-02-2013 Episodic Past or Other Problems Problem Classification Problem Date Documented Date Episodic/Chronic Acquired foot deformities (2 sources) Bunion of right foot Onset: 05-02-2021 Resolved: 05-30-2021 Episodic Contraceptive and procreative management (1 source) Tubal ligation status; Translations: [TUBAL LIGATION STATUS] Onset: 04-02-2022 Episodic E Codes: Natural/environment (1 source) Overexertion from prolonged static or awkward postures, initial encounter; Translations: [OVEREXERT PROLNG STAT/AWK PST INIT] Onset: 04-02-2022 Episodic Endometriosis (13 sources) Endometriosis, unspecified; Translations: [Endometriosis (clinical)] Onset: 04-29-2022 Resolved: 06-17-2023 06-17-2023 Chronic Genitourinary symptoms and ill-defined conditions (1 source) Dysuria Onset: 05-08-2021 Resolved: 05-08-2021 Episodic Lymphadenitis (4 sources) Axillary lymphadenopathy; Translations: [Localized enlarged lymph nodes] Onset: 07-14-2023 07-14-2023 Episodic Menstrual disorders (20 sources) Disorder of menstruation; Translations: [Irregular menstruation, unspecified] Onset: 06-17-2023 Resolved: 06-17-2023 Chronic Nonmalignant breast conditions (20 sources) Breast problem; Translations: [Disorder of breast, unspecified] Onset: 06-30-2023 08-06-2023 Episodic Other and unspecified benign neoplasm (20 sources) Fibroadenoma of right breast; Translations: [Benign neoplasm of right breast] Onset: 12-26-2023 09-12-2023 Episodic Other and unspecified benign neoplasm (8 sources) Benign neoplasm of right breast; Translations: [Benign neoplasm of breast] Onset: 12-26-2023 06-01-2024 Episodic Other connective tissue disease (12 sources) Pain in right foot; Translations: [Pain in right foot] Onset: 06-17-2023 06-17-2023 Episodic Other female genital disorders (12 sources) Abnormal uterine bleeding; Translations: [Abnormal uterine and vaginal bleeding, unspecified] Onset: 06-17-2023 Resolved: 06-17-2023 06-17-2023 Chronic Other female genital disorders (12 sources) Vaginal odor; Translations: [Other specified noninflammatory disorders of vagina] Onset: 06-17-2023 Resolved: 06-17-2023 06-17-2023 Episodic Other non-traumatic joint disorders (3 sources) Pain in right ankle and joints of right foot; Translations: [PAIN IN RIGHT ANKLE] Onset: 03-28-2022 Episodic Other non-traumatic joint disorders (3 sources) Pain in left shoulder; Translations: [PAIN IN LEFT SHOULDER] Onset: 02-10-2022 Episodic Other screening for suspected conditions (not mental disorders or infectious disease) (17 sources) Mammography abnormal; Translations: [Other abnormal and inconclusive findings on diagnostic imaging of breast] Onset: 07-02-2023 07-02-2023 Episodic Other skin disorders (20 sources) Eruption; Translations: [Rash and other nonspecific skin eruption] Onset: 01-06-2024 01-06-2024 Episodic Residual codes; unclassified (20 sources) Difficult venous access; Translations: [Other specified health status] Onset: 01-06-2024 01-06-2024 Episodic Residual codes; unclassified (1 source) Family history of malignant neoplasm of breast; Translations: [Family history of breast cancer] Onset: 03-12-2024 Episodic Residual codes; unclassified (1 source) Other specified postprocedural states; Translations: [Post-operative state] Onset: 01-19-2024 Episodic Unclassified (1 source) kidney infections( Confirmed ) 07-21-2012 Unclassified (1 source) Conjunctivitis 372.30 Onset: 10-23-2021 Resolved: 10-23-2021 Unclassified (2 sources) kidney infections 07-21-2012 Unclassified (1 source) Low back pain, unspecified; Translations: [Low back pain, unspecified] Onset: 12-17-2023 Results Test Name Value Interpretation Reference Range Facility MR HIP ARTHROGRAM RIGHTon MR HIP ARTHROGRAM RIGHT EXAMINATION/TECH NIQUE: MR HIP ARTHROGRAM RIGHT History: Right hip pain. Comparison: Radiographs 09/08/2024. RESULT: Some limitations from motion. RIGHT HIP JOINT: No evidence for fracture. Cartilage appears preserved. Labrum appears grossly intact. LEFT HIP JOINT: Unremarkable on large field of view imaging. SI JOINTS: Unremarkable. PUBIC SYMPHYSIS: Unremarkable. BONE MARROW: There is no evidence of fracture, bone bruise, marrow replacing lesion or osteonecrosis. TENDONS: The rectus femoris tendons, iliopsoas tendons, hamstring tendons, hip adductor and abductor tendons appear to be intact bilaterally. MUSCLE: Muscle bulk and signal intensity are within normal limits. VISCERAL PELVIS: Limited evaluation of the visceral pelvis is unremarkable. LOWER LUMBAR SPINE: Limited evaluation unremarkable. OTHER: No other significant abnormality. IMPRESSION: Unremarkable MRI. ELECTRONICALLY SIGNED BY: Nato Preciado MD Normal Not Available XR Hip - right 3 [facility] Result: AP and lateral right hip: No acute fracture or dislocation No significant degenerative changes Small bony avulsion to superior aspect of acetabulum concerning for possible labral injury. Impression: No acute process right hip possible avulsion superior acetabulum concerning for labral injury [facility] Radiology Study observation (narrative) [facility] 07-09-2024 CNP Telephone (RADMN) ----- SULLY ENRIQUEZ ([id number]) 1990 F Date Time Provider Department 07/09/24 LOU MILLER RADMN During your visit today, we recorded the following information about you: Lou Miller, RN 07/09/2024 2:27 PM Signed Called patient to notify the breast pathology results are benign per Dr. Perla. Informed patient a 6 month follow up is recommended. Patient verbalized understanding. Allergies As of Date: 07/09/2024 Noted Allergy Reaction CIPROFLOXACIN 03/06/2021 16 - Unknown DICYCLOMINE 03/06/2021 16 - Unknown KETOROLAC 03/06/2021 16 - Unknown LORAZEPAM 03/06/2021 16 - Unknown METHYLPREDNISOLONE 01/06/2024 14 - Other: See Comments Comments: Rash, blistering NITROFURANTOIN 03/06/2021 16 - Unknown PENICILLINS 03/06/2021 16 - Unknown PREDNISONE 12/26/2023 5 - Intolerance REGLAN (METOCLOPRAMIDE) 03/06/2021 16 - Unknown ZITHROMAX (AZITHROMYCIN) 03/06/2021 16 - Unknown Date Reviewed: 05/20/2024 Reviewed by: Charly Galaviz RT(R) - Fully Assessed Reason for Visit: Results [95] Prescriptions as of 07/09/2024 - estradiol (ESTRACE) 1 mg tablet Take 1 mg by mouth once daily. - ondansetron (ZOFRAN) 4 mg tablet Take 1 tablet by mouth every 8 hours as needed for nausea/vomiting. - acetaminophen (TYLENOL) 325 mg tablet Take 2 tablets by mouth every 6 hours as needed (for pain.). - tizanidine HCl (ZANAFLEX ORAL) Zanaflex - Phentermine HCl 37.5 mg tablet once daily. - ALPRAZolam (XANAX) 1 mg tablet Take 1 mg by mouth twice daily as needed. Problem List As Of Date 07/09/2024 Noted Resolved Seizure (HCC) [R56.9] 03/06/2021 Headaches [R51.9] 03/07/2021 Breast fibroadenoma, right [D24.1] 12/26/2023 Difficult intravenous access [Z78.9] 01/06/2024 Obesity (BMI 30-39.9) [E66.9] 01/06/2024 POTS (postural orthostatic tachycardia syndrome*01/06/2024 Rash [R21] 01/06/2024 Encounter Status:Closed by LOU MILLER on 07/09/24 Normal [facility] CNPN Telephone (BRCRMN) ----- SULLY ENRIQUEZ ([id number]) 1990 F Date Time Provider Department 07/09/24 [facility] During your visit today, we recorded the following information about you: Yaya Velasco 07/09/2024 4:36 PM Signed Patient stated she missed a call from Dr. Friedman office not to long ago. I saw someone called her regarding her results pathology, Lou Miller. Patient said she sees Prince Mon and wanted to speak with her about her results. [phone]. Prince Mon PA-C 07/09/2024 4:48 PM Signed Called and spoke with patient reviewed benign biopsy and recommendation for 6 month follow up. I will see her back in 6 months with imaging and exam same day. Allergies As of Date: 07/09/2024 Noted Allergy Reaction CIPROFLOXACIN 03/06/2021 16 - Unknown DICYCLOMINE 03/06/2021 16 - Unknown KETOROLAC 03/06/2021 16 - Unknown LORAZEPAM 03/06/2021 16 - Unknown METHYLPREDNISOLONE 01/06/2024 14 - Other: See Comments Comments: Rash, blistering NITROFURANTOIN 03/06/2021 16 - Unknown PENICILLINS 03/06/2021 16 - Unknown PREDNISONE 12/26/2023 5 - Intolerance REGLAN (METOCLOPRAMIDE) 03/06/2021 16 - Unknown ZITHROMAX (AZITHROMYCIN) 03/06/2021 16 - Unknown Date Reviewed: 05/20/2024 Reviewed by: Charly Galaviz RT(R) - Fully Assessed Primary Visit Diagnosis:Nipple discharge [N64.52] Order(s):SAJI ALFARO LEFT [[id number]] Order #: [id number] [facility] [employer] LEFT [[id number]] Order #: [id number] FUTURE Prescriptions as of 07/09/2024 - estradiol (ESTRACE) 1 mg tablet Take 1 mg by mouth once daily. - ondansetron (ZOFRAN) 4 mg tablet Take 1 tablet by mouth every 8 hours as needed for nausea/vomiting. - acetaminophen (TYLENOL) 325 mg tablet Take 2 tablets by mouth every 6 hours as needed (for pain.). - tizanidine HCl (ZANAFLEX ORAL) Zanaflex - Phentermine HCl 37.5 mg tablet once daily. - ALPRAZolam (XANAX) 1 mg tablet Take 1 mg by mouth twice daily as needed. Problem List As Of Date 07/09/2024 Noted Resolved Seizure (HCC) [R56.9] 03/06/2021 Headaches [R51.9] 03/07/2021 Breast fibroadenoma, right [D24.1] 12/26/2023 Difficult intravenous access [Z78.9] 01/06/2024 Obesity (BMI 30-39.9) [E66.9] 01/06/2024 POTS (postural orthostatic tachycardia syndrome*01/06/2024 Rash [R21] 01/06/2024 Encounter Status:Closed by PRINCE MON on 07/09/24 [facility] DBT Breast - left diagnostic for implanton 07-07-2024 IMPRESSION: ULTRASOU ND GUIDED BIOPSY Site 1: Ultrasound-guided biopsy of the mass located in the left breast in the subareolar region with placement of a hydromark butterfly biopsy marker. Procedure was successful. Waiting for pathology result. An amendment will be issued to this report when pathology results become available. The hydromark butterfly biopsy marker is in appropriate position at the mass. Interpreting Radiologist: Jorge A Perla M.D. Electronically signed on: 07/07/2024 Biochemistry Professor: BISHOP [employer] Date/Time: Jul 07 2024 8:18A Dictated by : JORGE A PERLA MD This examination was interpreted and the report reviewed and electronically signed by: JORGE A PERLA MD on Jul 07 2024 8:30AM [facility] * * *Final Report* * * DATE OF EXAM: Jul 07 2024 8:20AM BILL [id number] - [facility]CO [facility]O LT / PROCEDURE REASON: R92.8-Abnormal finding on breast imaging * * * * Physician Interpretation * * * * [place] [id number] #[id number] - [facility] US BIOPSY BREAST LT #[id number] - [facility] AL[facility] LT HISTORY: 34 year old patient presents for ultrasound guided core biopsy of the following: Site 1: Mass located in the left breast in the subareolar region PATIENT CONSENT: A time out was performed immediately prior to procedure start with the radiology team, correctly identifying the patient name, date of , procedure, anatomy (including marking of site and side), patient position, relevant diagnostic and radiology test results, safety precautions, and procedure-specific equipment needs. The procedure, along with the risks (including, but not limited to, infection and bleeding), benefits, and alternatives, was explained to the patient by the performing physician. The patient agreed to undergo the procedure. Medications and allergies were also reviewed. The radiologist and technologist were present throughout the entire procedure. Correlation is made to exams dated: 03/12/2024 (ultrasound), 05/20/2024 (MRI), 06/25/2024 (mammogram) and 06/25/2024 (ultrasound). Site 1: Mass in the left breast in the subareolar region Audible Time Out Time: 075 Procedure Start Time: 754 Procedure Stop Time: 08 An ultrasound-guided biopsy using real-time ultrasound was performed for the concerning mass located in the left breast in the subareolar region. This was described on the previous ultrasound report. The skin was prepped in the usual manner. Local anesthetic was administered. A skin radhika was made. The abnormality was approached from the lateral aspect. A 16 gauge biopsy needle was placed adjacent to the abnormality under ultrasound guidance. Once the needle was documented to be in the correct location, 3 samples were obtained using a spring-loaded biopsy device. A hydromark butterfly biopsy marker was then placed under sonographic guidance. A skin closure strip and a sterile dressing were applied to the access site. The specimen was sent to the laboratory for pathological analysis. There were no biopsy complications observed. Post-procedure mammogram: The hydromark butterfly biopsy marker is in appropriate position at the mass. Post-procedure mammogram density: The breasts are heterogeneously dense, which may obscure small masses. [facility] Provider, Alexa Cox - 07/07/2024 * * *Final Report* * * DATE OF EXAM: Jul 07 2024 8:20AM BILL [id number] - [facility] DIAG W [facility] LT / PROCEDURE REASON: R92.8-Abnormal finding on breast imaging * * * * Physician Interpretation * * * * [place] [id number] #[id number] - [facility] US BIOPSY BREAST LT #[id number] - [facility] DIAG W [facility] LT HISTORY: 34 year old patient presents for ultrasound guided core biopsy of the following: Site 1: Mass located in the left breast in the subareolar region PATIENT CONSENT: A time out was performed immediately prior to procedure start with the radiology team, correctly identifying the patient name, date of , procedure, anatomy (including marking of site and side), patient position, relevant diagnostic and radiology test results, safety precautions, and procedure-specific equipment needs. The procedure, along with the risks (including, but not limited to, infection and bleeding), benefits, and alternatives, was explained to the patient by the performing physician. The patient agreed to undergo the procedure. Medications and allergies were also reviewed. The radiologist and technologist were present throughout the entire procedure. Correlation is made to exams dated: 03/12/2024 (ultrasound), 05/20/2024 (MRI), 06/25/2024 (mammogram) and 06/25/2024 (ultrasound). Site 1: Mass in the left breast in the subareolar region Audible Time Out Time: 075 Procedure Start Time: 075 Procedure Stop Time: 08 An ultrasound-guided biopsy using real-time ultrasound was performed for the concerning mass located in the left breast in the subareolar region. This was described on the previous ultrasound report. The skin was prepped in the usual manner. Local anesthetic was administered. A skin radhika was made. The abnormality was approached from the lateral aspect. A 16 gauge biopsy needle was placed adjacent to the abnormality under ultrasound guidance. Once the needle was documented to be in the correct location, 3 samples were obtained using a spring-loaded biopsy device. A hydromark butterfly biopsy marker was then placed under sonographic guidance. A skin closure strip and a sterile dressing were applied to the access site. The specimen was sent to the laboratory for pathological analysis. There were no biopsy complications observed. Post-procedure mammogram: The hydromark butterfly biopsy marker is in appropriate position at the mass. Post-procedure mammogram density: The breasts are heterogeneously dense, which may obscure small masses. IMPRESSION IMPRESSION: ULTRASOUND GUIDED BIOPSY Site 1: Ultrasound-guided biopsy of the mass located in the left breast in the subareolar region with placement of a hydromark butterfly biopsy marker. Procedure was successful. Waiting for pathology result. An amendment will be issued to this report when pathology results become available. The hydromark butterfly biopsy marker is in appropriate position at the mass. Interpreting Radiologist: Jorge A Perla M.D. Electronically signed on: 07/07/2024 Biochemistry Professor: BISHOP Transcribe Date/Time: Jul 07 2024 8:18A Dictated by : JORGE A PERLA MD This examination was interpreted and the report reviewed and electronically signed by: JORGE A PERLA MD on Jul 07 2024 8:30AM [facility] Radiology Study observation (narrative) [facility] SAJI DIAG W HARVEY LTon 025 SAJI ISAACG W HARVEY LT * * *Final Report* * * * * * SEE BOTTOM OF REPORT FOR ADDENDED TEXT * * * DATE OF EXAM: Jul 07 2024 8:20AM BILL [id number] - SAJI DIAG W HARVEY LT / PROCEDURE REASON: R92.8-Abnormal finding on breast imaging * * * * Physician Interpretation * * * * [place] [id number] - - - - - - - - - - ADDENDED REPORT - - - - - - - - - - 07/09/2024 at 14:28:47 Addendum: The final pathology results of the patient's ultrasound guided core biopsy demonstrate the following: Site 1 - (left breast) A: Breast, Left, 12:00, Subareolar, Biopsy With Hydromark Butterfly Clip Placement: - Benign Subareolar Mammary Tissue With Microcysts and Scant Microcalcifications. This is concordant with the imaging findings. RECOMMENDATION Site 1: Six month follow up mammogram and ultrasound A breast imaging nurse navigator contacted the patient with the results and recommendations. Follow-up with diagnostic imaging is recommended in 6 months. Interpreting Radiologist: Jorge A Perla M.D. Electronically signed on: 07/09/2024 - - - - - - - - - - ORIGINAL REPORT - - - - - - - - - - #[id number] - [facility] US BIOPSY BREAST LT #[id number] - [facility] MARCO ALFARO HISTORY: 34 year old patient presents for ultrasound guided core biopsy of the following: Site 1: Mass located in the left breast in the subareolar region PATIENT CONSENT: A time out was performed immediately prior to procedure start with the radiology team, correctly identifying the patient name, date of , procedure, anatomy (including marking of site and side), patient position, relevant diagnostic and radiology test results, safety precautions, and procedure-specific equipment needs. The procedure, along with the risks (including, but not limited to, infection and bleeding), benefits, and alternatives, was explained to the patient by the performing physician. The patient agreed to undergo the procedure. Medications and allergies were also reviewed. The radiologist and technologist were present throughout the entire procedure. Correlation is made to exams dated: 03/12/2024 (ultrasound), 05/20/2024 (MRI), 06/25/2024 (mammogram) and 06/25/2024 (ultrasound). Site 1: Mass in the left breast in the subareolar region Audible Time Out Time: 0751 Procedure Start Time: 0755 Procedure Stop Time: 08 An ultrasound-guided biopsy using real-time ultrasound was performed for the concerning mass located in the left breast in the subareolar region. This was described on the previous ultrasound report. The skin was prepped in the usual manner. Local anesthetic was administered. A skin radhika was made. The abnormality was approached from the lateral aspect. A 16 gauge biopsy needle was placed adjacent to the abnormality under ultrasound guidance. Once the needle was documented to be in the correct location, 3 samples were obtained using a spring-loaded biopsy device. A hydromark butterfly biopsy marker was then placed under sonographic guidance. A skin closure strip and a sterile dressing were applied to the access site. The specimen was sent to the laboratory for pathological analysis. There were no biopsy complications observed. Post-procedure mammogram: The hydromark butterfly biopsy marker is in appropriate position at the mass. Post-procedure mammogram density: The breasts are heterogeneously dense, which may obscure small masses. IMPRESSION: ULTRASOUND GUIDED BIOPSY Site 1: Ultrasound-guided biopsy of the mass located in the left breast in the subareolar region with placement of a hydromark butterfly biopsy marker. Procedure was successful. Waiting for pathology result. An amendment will be issued to this report when pathology results become available. The hydromark butterfly biopsy marker is in appropriate position at the mass. Interpreting Radiologist: Jorge A Perla M.D. Electronically signed on: 07/09/2024 Biochemistry Professor: BISHOP Transcribe Date/Time: Jul 07 2024 8:18A Dictated by : JORGE A PERAL MD This examination was interpreted and the report reviewed and electronically signed by: JORGE A PERLA MD on Jul 07 2024 8:30AM EST This document has been addended by: JORGE A PERLA MD on Jul 09 2024 2:28PM EST [id number] Normal [facility] US BIOPSY BREAST LTon [facility] US BIOPSY BREAST LT * * *Final Repor t* * * * * * SEE BOTTOM OF REPORT FOR ADDENDED TEXT * * * DATE OF EXAM: Jul 07 2024 8:04AM AGUSTÍN 0597 - [facility] US BIOPSY BREAST LT / PROCEDURE REASON: R92.8-Abnormal finding on breast imaging * * * * Physician Interpretation * * * * [place] [address] - - - - - - - - - - ADDENDED REPORT - - - - - - - - - - 07/09/2024 at 14:28:47 Addendum: The final pathology results of the patient's ultrasound guided core biopsy demonstrate the following: Site 1 - (left breast) A: Breast, Left, 12:00, Subareolar, Biopsy With Hydromark Butterfly Clip Placement: - Benign Subareolar Mammary Tissue With Microcysts and Scant Microcalcifications. This is concordant with the imaging findings. RECOMMENDATION Site 1: Six month follow up mammogram and ultrasound A breast imaging nurse navigator contacted the patient with the results and recommendations. Follow-up with diagnostic imaging is recommended in 6 months. Interpreting Radiologist: Jorge A Perla M.D. Electronically signed on: 07/09/2024 - - - - - - - - - - ORIGINAL REPORT - - - - - - - - - - #[id number] - [facility] US BIOPSY BREAST LT #[id number] - [facility] ALFARO LT HISTORY: 34 year old patient presents for ultrasound guided core biopsy of the following: Site 1: Mass located in the left breast in the subareolar region PATIENT CONSENT: A time out was performed immediately prior to procedure start with the radiology team, correctly identifying the patient name, date of , procedure, anatomy (including marking of site and side), patient position, relevant diagnostic and radiology test results, safety precautions, and procedure-specific equipment needs. The procedure, along with the risks (including, but not limited to, infection and bleeding), benefits, and alternatives, was explained to the patient by the performing physician. The patient agreed to undergo the procedure. Medications and allergies were also reviewed. The radiologist and technologist were present throughout the entire procedure. Correlation is made to exams dated: 03/12/2024 (ultrasound), 05/20/2024 (MRI), 06/25/2024 (mammogram) and 06/25/2024 (ultrasound). Site 1: Mass in the left breast in the subareolar region Audible Time Out Time: 750 Procedure Start Time: 754 Procedure Stop Time: 800 An ultrasound-guided biopsy using real-time ultrasound was performed for the concerning mass located in the left breast in the subareolar region. This was described on the previous ultrasound report. The skin was prepped in the usual manner. Local anesthetic was administered. A skin radhika was made. The abnormality was approached from the lateral aspect. A 16 gauge biopsy needle was placed adjacent to the abnormality under ultrasound guidance. Once the needle was documented to be in the correct location, 3 samples were obtained using a spring-loaded biopsy device. A hydromark butterfly biopsy marker was then placed under sonographic guidance. A skin closure strip and a sterile dressing were applied to the access site. The specimen was sent to the laboratory for pathological analysis. There were no biopsy complications observed. Post-procedure mammogram: The hydromark butterfly biopsy marker is in appropriate position at the mass. Post-procedure mammogram density: The breasts are heterogeneously dense, which may obscure small masses. IMPRESSION: ULTRASOUND GUIDED BIOPSY Site 1: Ultrasound-guided biopsy of the mass located in the left breast in the subareolar region with placement of a hydromark butterfly biopsy marker. Procedure was successful. Waiting for pathology result. An amendment will be issued to this report when pathology results become available. The hydromark butterfly biopsy marker is in appropriate position at the mass. Interpreting Radiologist: Jorge A Perla M.D. Electronically signed on: 07/09/2024 Biochemistry Professor: BISHOP Transcribe Date/Time: Jul 07 2024 7:29A Dictated by : JORGE A PERLA MD This examination was interpreted and the report reviewed and electronically signed by: JORGE A PERLA MD on Jul 07 2024 8:30AM EST This document has been addended by: JORGE A PERLA MD on Jul 09 2024 2:28PM EST [id number] [facility] No Panel InformationOrdered By: Ccf Provider on 07-07-2024 [facility] Pathology biopsy report David (Tiss)on 07-07-2024 AP DISCLAIMER [facility] Comment on above: Order Comment: Speci men Type: TISSUE SPECIMEN Ordering Facility: [facility] Address: [address] [place] [address] Result Comment: Loni woods Developed Test (LDT) Disclaimer: Performance characteristics of immunohistochemical, immunofluorescent, and chromogenic in-situ hybridization tests have been determined by the performing laboratory within [facility] Pathology and Laboratory Medicine Department ([facility], [facility], [facility], [facility], [facility], [facility], or [facility]) in a manner consistent with CLIA requirements. One or more of these tests may not have been cleared or approved by the FDA. [facility] is regulated under CLIA as qualified to perform high-complexity testing. These tests are used for clinical purposes. These should not be regarded as investigational or for research. Positive and negative controls stain appropriately. Performed By: #### 6 6121-5 #### [facility] CLIA [id number] [address] [place] [address] [place] [address] [place] CASE REPORT Normal [facility] Comment on above: Order Comment: Speci men Type: TISSUE SPECIMEN Ordering Facility: [facility] Address: [address] [place] [address] Result Comment: Surg ical Pathology Report Case: [id number] Authorizing Provider: Jorge A Perla MD Collected: 07/07/2024 07:56 AM Ordering Location: Mammography Received: 07/07/2024 08:45 AM Pathologist: Abeba Kaminski MD Specimen: Breast, Left, Core Biopsy, 12:00 subareolar; Hydromark Butterfly Performed By: #### 6 6121-5 #### [facility] CLIA [id number] [address] [place] [address] DIAGNOSIS COMMENT Multiple deeper leve ls were examined. [facility] Comment on above: Order Comment: Speci men Type: TISSUE SPECIMEN Ordering Facility: [facility] Address: [address] [place] [address] Performed By: #### 6 6121-5 #### [facility] CLIA [id number] [address] [place] [address] FINAL DIAGNOSIS [facility] Comment on above: Order Comment: Speci men Type: TISSUE SPECIMEN Ordering Facility: [facility] Address: [address] [place] [address] Result Comment: A: B reast, left, 12:00, subareolar, biopsy with HydroMARK butterfly clip placement: - Benign subareolar mammary tissue with microcysts and scant microcalcifications. at 1211 EDT Performed By: #### 6 6121-5 #### [facility] CLIA [id number] [address] [place] [address] FINAL PERFORMING LAB Normal [facility] Comment on above: Order Comment: Speci men Type: TISSUE SPECIMEN Ordering Facility: [facility] Address: [address] [place] [address] Result Comment: Diag nostic interpretation performed at: [facility], [address] [place], [place] [address] CLIA# [id number] Manager Government: Rory Moreno MD Performed By: #### 6 6121-5 #### [facility] IA [id number] [address] [place] [address] [place] GROSS DESCRIPTION [facility] Comment on above: Order Comment: Speci men Type: TISSUE SPECIMEN Ordering Facility: [facility] Address: [address] [place] [address] Result Comment: Emma pondt, Left, Core Biopsy Received in formalin labeled as left breast are multiple segments of cylindrical tissue aggregating to 0.6 x 0.4 x 0.2 cm, vazquez-pink and of a soft consistency. The specimen was removed from the patient at 07:56 on 07/07/2024. On the same day, the specimen was placed in formalin at 07:56. Totally submitted in formalin in one cassette. R July 07, 2024 2:11 PM Gross examination performed at [facility], [address] [place] [address] Performed By: #### 6 6121-5 #### [facility] IA [id number] [address] [place] [address] [place] Guidance for biopsy of Br east - lefton 07-07-2024 IMPRESSION: ULTRASOU ND GUIDED BIOPSY Site 1: Ultrasound-guided biopsy of the mass located in the left breast in the subareolar region with placement of a hydromark butterfly biopsy marker. Procedure was successful. Waiting for pathology result. An amendment will be issued to this report when pathology results become available. The hydromark butterfly biopsy marker is in appropriate position at the mass. Interpreting Radiologist: Jorge A Perla M.D. Electronically signed on: 07/07/2024 Biochemistry Professor: BISHOP Transcridalton Date/Time: Jul 07 2024 7:29A Dictated by : JORGE A PERLA MD This examination was interpreted and the report reviewed and electronically signed by: JORGE A PERLA MD on Jul 07 2024 8:30AM [facility] * * *Final Report* * * DATE OF EXAM: Jul 07 2024 8:04AM AGUSTÍN 0597 - [facility] US BIOPSY BREAST LT / PROCEDURE REASON: R92.8-Abnormal finding on breast imaging * * * * Physician Interpretation * * * * [place] [id number] #[id number] - [facility] US BIOPSY BREAST LT #[id number] - [facility] MARCO ALFARO LT HISTORY: 34 year old patient presents for ultrasound guided core biopsy of the following: Site 1: Mass located in the left breast in the subareolar region PATIENT CONSENT: A time out was performed immediately prior to procedure start with the radiology team, correctly identifying the patient name, date of , procedure, anatomy (including marking of site and side), patient position, relevant diagnostic and radiology test results, safety precautions, and procedure-specific equipment needs. The procedure, along with the risks (including, but not limited to, infection and bleeding), benefits, and alternatives, was explained to the patient by the performing physician. The patient agreed to undergo the procedure. Medications and allergies were also reviewed. The radiologist and technologist were present throughout the entire procedure. Correlation is made to exams dated: 03/12/2024 (ultrasound), 05/20/2024 (MRI), 06/25/2024 (mammogram) and 06/25/2024 (ultrasound). Site 1: Mass in the left breast in the subareolar region Audible Time Out Time: 075 Procedure Start Time: 754 Procedure Stop Time: 08 An ultrasound-guided biopsy using real-time ultrasound was performed for the concerning mass located in the left breast in the subareolar region. This was described on the previous ultrasound report. The skin was prepped in the usual manner. Local anesthetic was administered. A skin radhika was made. The abnormality was approached from the lateral aspect. A 16 gauge biopsy needle was placed adjacent to the abnormality under ultrasound guidance. Once the needle was documented to be in the correct location, 3 samples were obtained using a spring-loaded biopsy device. A hydromark butterfly biopsy marker was then placed under sonographic guidance. A skin closure strip and a sterile dressing were applied to the access site. The specimen was sent to the laboratory for pathological analysis. There were no biopsy complications observed. Post-procedure mammogram: The hydromark butterfly biopsy marker is in appropriate position at the mass. Post-procedure mammogram density: The breasts are heterogeneously dense, which may obscure small masses. [facility] Provider, Alexa Cox - 07/07/2024 * * *Final Report* * * DATE OF EXAM: Jul 07 2024 8:04AM AGUSTÍN 0597 - [facility] US BIOPSY BREAST LT / PROCEDURE REASON: R92.8-Abnormal finding on breast imaging * * * * Physician Interpretation * * * * [place] [id number] #[id number] - [facility] US BIOPSY BREAST LT #[id number] - [facility] MAR[facility] ALFARO LT HISTORY: 34 year old patient presents for ultrasound guided core biopsy of the following: Site 1: Mass located in the left breast in the subareolar region PATIENT CONSENT: A time out was performed immediately prior to procedure start with the radiology team, correctly identifying the patient name, date of , procedure, anatomy (including marking of site and side), patient position, relevant diagnostic and radiology test results, safety precautions, and procedure-specific equipment needs. The procedure, along with the risks (including, but not limited to, infection and bleeding), benefits, and alternatives, was explained to the patient by the performing physician. The patient agreed to undergo the procedure. Medications and allergies were also reviewed. The radiologist and technologist were present throughout the entire procedure. Correlation is made to exams dated: 03/12/2024 (ultrasound), 05/20/2024 (MRI), 06/25/2024 (mammogram) and 06/25/2024 (ultrasound). Site 1: Mass in the left breast in the subareolar region Audible Time Out Time: 075 Procedure Start Time: 075 Procedure Stop Time: 08 An ultrasound-guided biopsy using real-time ultrasound was performed for the concerning mass located in the left breast in the subareolar region. This was described on the previous ultrasound report. The skin was prepped in the usual manner. Local anesthetic was administered. A skin radhika was made. The abnormality was approached from the lateral aspect. A 16 gauge biopsy needle was placed adjacent to the abnormality under ultrasound guidance. Once the needle was documented to be in the correct location, 3 samples were obtained using a spring-loaded biopsy device. A hydromark butterfly biopsy marker was then placed under sonographic guidance. A skin closure strip and a sterile dressing were applied to the access site. The specimen was sent to the laboratory for pathological analysis. There were no biopsy complications observed. Post-procedure mammogram: The hydromark butterfly biopsy marker is in appropriate position at the mass. Post-procedure mammogram density: The breasts are heterogeneously dense, which may obscure small masses. IMPRESSION IMPRESSION: ULTRASOUND GUIDED BIOPSY Site 1: Ultrasound-guided biopsy of the mass located in the left breast in the subareolar region with placement of a hydromark butterfly biopsy marker. Procedure was successful. Waiting for pathology result. An amendment will be issued to this report when pathology results become available. The hydromark butterfly biopsy marker is in appropriate position at the mass. Interpreting Radiologist: Jorge A Perla M.D. Electronically signed on: 07/07/2024 Biochemistry Professor: BISHOP Transcribe Date/Time: Jul 07 2024 7:29A Dictated by : JORGE A PERLA MD This examination was interpreted and the report reviewed and electronically signed by: JORGE A PERLA MD on Jul 07 2024 8:30AM EST [facility] Radiology Study observation (narrative) [facility] Kt 06-28-2024 CNPN Telephone (DANECA) ----- SULLY ENRIQUEZ ([id number]) 1990 F Date Time Provider Department 06/28/24 PRINCE MON During your visit today, we recorded the following information about you: Prince Mon PA-C 06/28/2024 12:38 PM Signed Returned patient's call regarding additional questions from imaging on 06/25 and recommendation for left retroareolar biopsy. Questions answered and patient appreciative of call. Will follow up biopsy results. Prince Mon PA-C Allergies As of Date: 06/28/2024 Noted Allergy Reaction CIPROFLOXACIN 03/06/2021 16 - Unknown DICYCLOMINE 03/06/2021 16 - Unknown KETOROLAC 03/06/2021 16 - Unknown LORAZEPAM 03/06/2021 16 - Unknown METHYLPREDNISOLONE 01/06/2024 14 - Other: See Comments Comments: Rash, blistering NITROFURANTOIN 03/06/2021 16 - Unknown PENICILLINS 03/06/2021 16 - Unknown PREDNISONE 12/26/2023 5 - Intolerance REGLAN (METOCLOPRAMIDE) 03/06/2021 16 - Unknown ZITHROMAX (AZITHROMYCIN) 03/06/2021 16 - Unknown Date Reviewed: 05/20/2024 Reviewed by: Charly Galaviz RT(R) - Fully Assessed Reason for Visit: Patient Question [9907] Prescriptions as of 06/28/2024 - estradiol (ESTRACE) 1 mg tablet Take 1 mg by mouth once daily. - ondansetron (ZOFRAN) 4 mg tablet Take 1 tablet by mouth every 8 hours as needed for nausea/vomiting. - acetaminophen (TYLENOL) 325 mg tablet Take 2 tablets by mouth every 6 hours as needed (for pain.). - tizanidine HCl (ZANAFLEX ORAL) Zanaflex - Phentermine HCl 37.5 mg tablet once daily. - ALPRAZolam (XANAX) 1 mg tablet Take 1 mg by mouth twice daily as needed. Problem List As Of Date 06/28/2024 Noted Resolved Seizure (HCC) [R56.9] 03/06/2021 Headaches [R51.9] 03/07/2021 Breast fibroadenoma, right [D24.1] 12/26/2023 Difficult intravenous access [Z78.9] 01/06/2024 Obesity (BMI 30-39.9) [E66.9] 01/06/2024 POTS (postural orthostatic tachycardia syndrome*01/06/2024 Rash [R21] 01/06/2024 Encounter Status:Closed by PRINCE MON on 06/28/24 [facility] Leon 06-25-2024 CNOV Office Visit (BRCRCA ) ----- SULLY ENRIQUEZ ([id number]) 1990 F Date Time Provider Department 06/25/24 11:30 AM PRINCE MON During your visit today, we recorded the following information about you: Temperature Pulse Respiration Blood pressure 97.8 degrees 69/minute 18/minute 128/87 Weight 106.1 kg Orlando Pollard LPN 06/25/2024 11:26 AM Signed Additional intake questions: Has the patient had fever, nausea, vomiting, diarrhea, constipation, fatigue for > 1 week? No Does the patient have a decreased appetite? NO Does patient want to see a [place] Attorney? No (yes to any of above refer patient to schedulers for dietitian appointment) ) Does patient have any new or increased numbness or tingling of extremities? No Is patient interested in fertility information? No Does patient need any prescription refills? No Does patient have an advanced directive in place? No, Patient referred to Resource Center Electronically Signed By: LILA Sow Christine, PA-C 06/25/2024 4:11 PM Signed [facility] Department of Breast Surgical Oncology [facility] FOLLOW UP HPI: Sully Enriquez is a 34 year old female with a history of right breast fibroadenoma presents today status post right breast excisional biopsy on 01/08/2024. Final path showed fibroadenoma and benign breast tissue. She has been followed for right bloody nipple discharge and bilateral diffuse breast pain. She has also had multiple breast lumps on self-exam which have been concerning to her. 01/30/2024 Ms. Enriquez was seen for post [...] clear nipple discharge several months ago. Ms. Zoe also noticed two new non-tender lumps in [...] the nipple discharge was not hormonally mediated. 06/25/2024 Breast MRI (05/21/24, [facility]): marked symmetric background parenchymal enhancement. No dominant suspicious enhancing mass or unique NME in either breast. Mildly dilated ducts bilaterally. Patient has noticed two new lumps (one in right breast and one in left breast) about 2 weeks ago since she had the MRI. The lumps are non-tender (left breast lump is pea-sized, right is slightly larger) and she is concerned as the left breast lump does not seem to be as movable as the right. She reports she can no longer feel previous lumps in the right breast. She has not experienced any episodes of right nipple discharge since she was last seen in February 2024. She notes one episode of yellowish discharge from the left nipple which occurred as she was palpating the breast and occurred about 1 month ago. No interval episodes. Also reports left areolar itchiness for the past 2 months. Denies change in detergent or body wash. She has been applying unscented lotion and 1% hydrocortisone cream which helps temporarily with symptomatic relief. In the interval, she also saw her local INTERNATIONAL TRADE ANALYST and was started on Estrace. She has not yet noticed any change in symptoms. Continues to report bilateral diffuse breast pain. She removed bilateral nipple piercings a couple weeks ago. Genetic testing completed 05/31/2024. Multi-Cancer panel through [facility] was negative for a pathogenic variant. Denies other breast masses, skin changes, nipple discharge, or nipple retraction. PERSONAL BREAST HISTORY: Past breast history (prior to this encou (more content not included)... Normal [facility] DBT Breast - bilateral diagn ostic for implanton 06-25-2024 IMPRESSION: Finding 1: There are no suspicious sonographic findings to correspond with the area of palpable concern in the right breast at 10 o'clock, 8 cm from the nipple. Clinical follow up for the site of palpable concern is recommended. Finding 2: There are no suspicious sonographic findings to correspond with the bloody nipple discharge in the subareolar region of the right breast. Clinical follow up for the reported nipple discharge is recommended. Return to annual screening mammogram is recommended. Annual mammogram will be due at age 39. Finding 3: There are no suspicious sonographic findings to correspond with the area of palpable concern in the left breast at 1 o'clock, 9 cm from the nipple. Clinical follow up for the site of palpable concern is recommended. Return to annual screening mammogram is recommended. Annual mammogram will be due at age 39. Finding 4: Dilated duct in the left breast at 12 o'clock, subareolar region. This has an appearance of a dilated duct with debris. Ultrasound-guided biopsy is recommended. BI-RADS Category 4A: Suspicious - Low suspicion for malignancy Results and recommendations reviewed with the patient. Informed consent was signed in the office today. The patient was provided information to schedule the recommended biopsy appointment. RISK: Based on the Tyrer-Cuzick (TC) risk assessment model, this patient has a 12.1% lifetime risk of developing breast cancer, meaning they are at average risk for developing breast cancer. However, this is only an estimate based on available history provided on the patient's questionnaire. We encourage all patients to talk with their providers about these results, further recommendations for managing breast health, and appropriate supplemental screening options if the patient has dense breast tissue. Interpreting Radiologist: Lea Almanzar M.D. Electronically signed on: 06/25/2024 Biochemistry Professor: BISHOP Transcribe Date/Time: Jun 25 2024 1:29P Dictated by : LEA ALMANZAR MD This examination was interpreted and the report reviewed and electronically signed by: LEA ALMANZAR MD on Jun 25 2024 4:12PM [facility] [place] DIVISION OF RADIOLOGY * * *Final Report* * * DATE OF EXAM: Jun 25 2024 1:43PM [facility] 0627 - [facility] DIAG W HARVEY SAADIA / PROCEDURE REASON: multiple diagnoses * * * * Physician Interpretation * * * * RESULT: [address] [place] [address] #[id number] - [facility] DIAG W HARVEY SAADIA #[id number] - [facility] US BREAST LTD LT #[id number] - [facility] US BREAST LTD RT HISTORY: 34 year-old patient seen for diagnostic evaluation of a palpable abnormality in both breasts. The patient also reports bloody right nipple discharge and yellow left nipple discharge. Patient states no personal history of breast cancer. The patient has a family history of breast cancer. COMPARISON STUDIES: The present examination has been compared to prior imaging studies dated 01/07/2024 (mammogram), 01/30/2024 (ultrasound), 03/12/2024 (mammogram), 03/12/2024 (ultrasound) and 05/20/2024 (MRI). MAMMOGRAM TECHNIQUE: The study was acquired using full field digital technology and interpreted from soft copy. Digital Breast Tomosynthesis (DBT) images were obtained and used to assist in the interpretation of this examination. MAMMOGRAM FINDINGS: The breasts are heterogeneously dense, which may obscure small masses. Finding 1: There are no suspicious mammographic findings to correspond with the area of palpable concern in the right breast at 10 o'clock, 8 cm from the nipple. Finding 2: There are no suspicious mammographic findings to correspond with the bloody nipple discharge in the subareolar region of the right breast. Finding 3: There are no suspicious mammographic findings to correspond with the area of palpable concern in the left breast at 1 o'clock, 9 cm from the nipple. Finding 4: There are no suspicious mammographic findings to correspond with the non-bloody nipple discharge in the subareolar region of the left breast. ULTRASOUND TECHNIQUE: Targeted ultrasound of the indicated area was performed. Cam scale images were saved. ULTRASOUND FINDINGS: Finding 1: There are no suspicious sonographic findings to correspond with the area of palpable concern in the right breast at 10 o'clock, 8 cm from the nipple. A few small (6-8mm) simple cysts were incidentally noted in the area of palpable concern. Finding 2: There are no suspicious sonographic findings to correspond with the bloody nipple discharge in the subareolar region of the right breast. Finding 3: There are no suspicious sonographic findings to correspond with the area of palpable concern in the left breast at 1 o'clock, 9 cm from the nipple. Finding 4: There is a dilated duct in the left breast at 12 o'clock, subareolar region. Internal echotexture is hypoechoic. There is no effect on posterior tissue. Color flow imaging demonstrates vascularity is not present. Finding correlates to the non-bloody nipple discharge in the subareolar region of the left breast. DIVISION OF RADIOLOGY Provider, [facility] - 06/25/2024 * * *Final Report* * * DATE OF EXAM: Jun 25 2024 1:43PM [facility] [place] [facility] DIAG W HARVEY SAADIA / PROCEDURE REASON: multiple diagnoses * * * * Physician Interpretation * * * * RESULT: [place] [address] #[id number] - [facility] DIAG W HARVEY SAADIA #[id number] - [facility] US BREAST LTD #[id number] - [facility] US BREAST LTD RT HISTORY: 34 year-old patient seen for diagnostic evaluation of a palpable abnormality in both breasts. The patient also reports bloody right nipple discharge and yellow left nipple discharge. Patient states no personal history of breast cancer. The patient has a family history of breast cancer. COMPARISON STUDIES: The present examination has been compared to prior imaging studies dated 01/07/2024 (mammogram), 01/30/2024 (ultrasound), 03/12/2024 (mammogram), 03/12/2024 (ultrasound) and 05/20/2024 (MRI). MAMMOGRAM TECHNIQUE: The study was acquired using full field digital technology and interpreted from soft copy. Digital Breast Tomosynthesis (DBT) images were obtained and used to assist in the interpretation of this examination. MAMMOGRAM FINDINGS: The breasts are heterogeneously dense, which may obscure small masses. Finding 1: There are no suspicious mammographic findings to correspond with the area of palpable concern in the right breast at 10 o'clock, 8 cm from the nipple. Finding 2: There are no suspicious mammographic findings to correspond with the bloody nipple discharge in the subareolar region of the right breast. Finding 3: There are no suspicious mammographic findings to correspond with the area of palpable concern in the left breast at 1 o'clock, 9 cm from the nipple. Finding 4: There are no suspicious mammographic findings to correspond with the non-bloody nipple discharge in the subareolar region of the left breast. ULTRASOUND TECHNIQUE: Targeted ultrasound of the indicated area was performed. Cam scale images were saved. ULTRASOUND FINDINGS: Finding 1: There are no suspicious sonographic findings to correspond with the area of palpable concern in the right breast at 10 o'clock, 8 cm from the nipple. A few small (6-8mm) simple cysts were incidentally noted in the area of palpable concern. Finding 2: There are no suspicious sonographic findings to correspond with the bloody nipple discharge in the subareolar region of the right breast. Finding 3: There are no suspicious sonographic findings to correspond with the area of palpable concern in the left breast at 1 o'clock, 9 cm from the nipple. Finding 4: There is a dilated duct in the left breast at 12 o'clock, subareolar region. Internal echotexture is hypoechoic. There is no effect on posterior tissue. Color flow imaging demonstrates vascularity is not present. Finding correlates to the non-bloody nipple discharge in the subareolar region of the left breast. IMPRESSION IMPRESSION: Finding 1: There are no suspicious sonographic findings to correspond with the area of palpable concern in the right breast at 10 o'clock, 8 cm from the nipple. Clinical follow up for the site of palpable concern is recommended. Finding 2: There are no suspicious sonographic findings to correspond with the bloody nipple discharge in the subareolar region of the right breast. Clinical follow up for the reported nipple discharge is recommended. Return to annual screening mammogram is recommended. Annual mammogram will be due at age 39. Finding 3: There are no suspicious sonographic findings to correspond with the area of palpable concern in the left breast at 1 o'clock, 9 cm from the nipple. Clinical follow up for the site of palpable concern is recommended. Return to annual screening mammogram is recommended. Annual mammogram will be due at age 39. Finding 4: Dilated duct in the left breast at 12 o'clock, subareolar region. This has an appearance of a dilated duct with debris. Ultrasound-guided biopsy is recommended. BI-RADS Category 4A: Suspicious - Low suspicion for malignancy Results and recommendations reviewed with the patient. Informed consent was signed in the office today. The patient was provided information to schedule the recommended biopsy appointment. RISK: Based on the Tyrer-Cuzick (TC) risk assessment model, this patient has a 12.1% lifetime risk of developing breast cancer, meaning they are at average risk for developing breast cancer. However, this is only an estimate based on available history provided on the patient's questionnaire. We encourage all patients to talk with their providers about these results, further recommendations for managing breast health, and appropriate supplemental screening options if the patient has dense breast tissue. I (more content not included)... [facility] DIAG W HARVEY BILon 2024 [facility] DIAG W HARVEY SAADIA * * *Final Report* * * DATE OF EXAM: Jun 25 2024 1:43PM [facility] 0627 - [facility] DIAG W HARVEY SAADIA / PROCEDURE REASON: multiple diagnoses * * * * Physician Interpretation * * * * RESULT: [address] [place] [address] #[id number] - [facility] DIAG W HARVEY SAADIA #[id number] - [facility] US BREAST LTD #[id number] - [facility] US BREAST LTD RT HISTORY: 34 year-old patient seen for diagnostic evaluation of a palpable abnormality in both breasts. The patient also reports bloody right nipple discharge and yellow left nipple discharge. Patient states no personal history of breast cancer. The patient has a family history of breast cancer. COMPARISON STUDIES: The present examination has been compared to prior imaging studies dated 01/07/2024 (mammogram), 01/30/2024 (ultrasound), 03/12/2024 (mammogram), 03/12/2024 (ultrasound) and 05/20/2024 (MRI). MAMMOGRAM TECHNIQUE: The study was acquired using full field digital technology and interpreted from soft copy. Digital Breast Tomosynthesis (DBT) images were obtained and used to assist in the interpretation of this examination. MAMMOGRAM FINDINGS: The breasts are heterogeneously dense, which may obscure small masses. Finding 1: There are no suspicious mammographic findings to correspond with the area of palpable concern in the right breast at 10 o'clock, 8 cm from the nipple. Finding 2: There are no suspicious mammographic findings to correspond with the bloody nipple discharge in the subareolar region of the right breast. Finding 3: There are no suspicious mammographic findings to correspond with the area of palpable concern in the left breast at 1 o'clock, 9 cm from the nipple. Finding 4: There are no suspicious mammographic findings to correspond with the non-bloody nipple discharge in the subareolar region of the left breast. ULTRASOUND TECHNIQUE: Targeted ultrasound of the indicated area was performed. Cam scale images were saved. ULTRASOUND FINDINGS: Finding 1: There are no suspicious sonographic findings to correspond with the area of palpable concern in the right breast at 10 o'clock, 8 cm from the nipple. A few small (6-8mm) simple cysts were incidentally noted in the area of palpable concern. Finding 2: There are no suspicious sonographic findings to correspond with the bloody nipple discharge in the subareolar region of the right breast. Finding 3: There are no suspicious sonographic findings to correspond with the area of palpable concern in the left breast at 1 o'clock, 9 cm from the nipple. Finding 4: There is a dilated duct in the left breast at 12 o'clock, subareolar region. Internal echotexture is hypoechoic. There is no effect on posterior tissue. Color flow imaging demonstrates vascularity is not present. Finding correlates to the non-bloody nipple discharge in the subareolar region of the left breast. IMPRESSION: Finding 1: There are no suspicious sonographic findings to correspond with the area of palpable concern in the right breast at 10 o'clock, 8 cm from the nipple. Clinical follow up for the site of palpable concern is recommended. Finding 2: There are no suspicious sonographic findings to correspond with the bloody nipple discharge in the subareolar region of the right breast. Clinical follow up for the reported nipple discharge is recommended. Return to annual screening mammogram is recommended. Annual mammogram will be due at age 39. Finding 3: There are no suspicious sonographic findings to correspond with the area of palpable concern in the left breast at 1 o'clock, 9 cm from the nipple. Clinical follow up for the site of palpable concern is recommended. Return to annual screening mammogram is recommended. Annual mammogram will be due at age 39. Finding 4: Dilated duct in the left breast at 12 o'clock, subareolar region. This has an appearance of a dilated duct with debris. Ultrasound-guided biopsy is recommended. BI-RADS Category 4A: Suspicious - Low suspicion for malignancy Results and recommendations reviewed with the patient. Informed consent was signed in the office today. The patient was provided information to schedule the recommended biopsy appointment. RISK: Based on the Tyrer-Cuzick (TC) risk assessment model, this patient has a 12.1% lifetime risk of developing breast cancer, meaning they are at average risk for developing breast cancer. However, this is only an estimate based on available history provided on the patient's questionnaire. We encourage all patients to talk with their providers about these results, further recommendations for managing breast health, and appropriate supplemental screening options if the patient has dense breast tissue. Interpreting Radiologist: Lea Almanzar M.D. Electronically signed on: 06/25/2024 Biochemistry Professor: BISHOP Transcridalton Date/Time: Jun 25 2024 1:29 (more content not included)... Normal [facility] [email or web address] BREAST LTD LTon 06-25 '[employer] BREAST LTD LT * * *Final Report* * * DATE OF EXAM: Jun 25 2024 2:21PM [facility] 0593 - SA[facility]I [email or web address] BREAST SupportBee LT / PROCEDURE REASON: multiple diagnoses * * * * Physician Interpretation * * * * RESULT: [address] [place] [address] #[id number] - [facility] MARCO ZEE #[id number] - [facility] [email or web address] BREAST LTD LT #[id number] - [facility] [email or web address] BREAST LTD RT HISTORY: 34 year-old patient seen for diagnostic evaluation of a palpable abnormality in both breasts. The patient also reports bloody right nipple discharge and yellow left nipple discharge. Patient states no personal history of breast cancer. The patient has a family history of breast cancer. COMPARISON STUDIES: The present examination has been compared to prior imaging studies dated 01/07/2024 (mammogram), 01/30/2024 (ultrasound), 03/12/2024 (mammogram), 03/12/2024 (ultrasound) and 05/20/2024 (MRI). MAMMOGRAM TECHNIQUE: The study was acquired using full field digital technology and interpreted from soft copy. Digital Breast Tomosynthesis (DBT) images were obtained and used to assist in the interpretation of this examination. MAMMOGRAM FINDINGS: The breasts are heterogeneously dense, which may obscure small masses. Finding 1: There are no suspicious mammographic findings to correspond with the area of palpable concern in the right breast at 10 o'clock, 8 cm from the nipple. Finding 2: There are no suspicious mammographic findings to correspond with the bloody nipple discharge in the subareolar region of the right breast. Finding 3: There are no suspicious mammographic findings to correspond with the area of palpable concern in the left breast at 1 o'clock, 9 cm from the nipple. Finding 4: There are no suspicious mammographic findings to correspond with the non-bloody nipple discharge in the subareolar region of the left breast. ULTRASOUND TECHNIQUE: Targeted ultrasound of the indicated area was performed. Cam scale images were saved. ULTRASOUND FINDINGS: Finding 1: There are no suspicious sonographic findings to correspond with the area of palpable concern in the right breast at 10 o'clock, 8 cm from the nipple. A few small (6-8mm) simple cysts were incidentally noted in the area of palpable concern. Finding 2: There are no suspicious sonographic findings to correspond with the bloody nipple discharge in the subareolar region of the right breast. Finding 3: There are no suspicious sonographic findings to correspond with the area of palpable concern in the left breast at 1 o'clock, 9 cm from the nipple. Finding 4: There is a dilated duct in the left breast at 12 o'clock, subareolar region. Internal echotexture is hypoechoic. There is no effect on posterior tissue. Color flow imaging demonstrates vascularity is not present. Finding correlates to the non-bloody nipple discharge in the subareolar region of the left breast. IMPRESSION: Finding 1: There are no suspicious sonographic findings to correspond with the area of palpable concern in the right breast at 10 o'clock, 8 cm from the nipple. Clinical follow up for the site of palpable concern is recommended. Finding 2: There are no suspicious sonographic findings to correspond with the bloody nipple discharge in the subareolar region of the right breast. Clinical follow up for the reported nipple discharge is recommended. Return to annual screening mammogram is recommended. Annual mammogram will be due at age 39. Finding 3: There are no suspicious sonographic findings to correspond with the area of palpable concern in the left breast at 1 o'clock, 9 cm from the nipple. Clinical follow up for the site of palpable concern is recommended. Return to annual screening mammogram is recommended. Annual mammogram will be due at age 39. Finding 4: Dilated duct in the left breast at 12 o'clock, subareolar region. This has an appearance of a dilated duct with debris. Ultrasound-guided biopsy is recommended. BI-RADS Category 4A: Suspicious - Low suspicion for malignancy Results and recommendations reviewed with the patient. Informed consent was signed in the office today. The patient was provided information to schedule the recommended biopsy appointment. RISK: Based on the Tyrer-Cuzick (TC) risk assessment model, this patient has a 12.1% lifetime risk of developing breast cancer, meaning they are at average risk for developing breast cancer. However, this is only an estimate based on available history provided on the patient's questionnaire. We encourage all patients to talk with their providers about these results, further recommendations for managing breast health, and appropriate supplemental screening options if the patient has dense breast tissue. Interpreting Radiologist: Lea Almanzar M.D. Electronically signed on: 06/25/2024 Biochemistry Professor: BISHOP Transcridalton Date/Time: Jun 25 2024 2:1 (more content not included)... Normal [facility] GI Track US BREAST LTD RTon 06-25 [facility] US BREAST LTD RT * * *Final Report* * * DATE OF EXAM: Jun 25 2024 2:31PM [facility] 0594 - [facility] US BREAST LTD RT / PROCEDURE REASON: multiple diagnoses * * * * Physician Interpretation * * * * RESULT: [place] [address] #[id number] - [facility] MARCO ALFARO SAADIA #[id number] - [facility] BREAST LTD #[id number] - [facility] BREAST LTD RT HISTORY: 34 year-old patient seen for diagnostic evaluation of a palpable abnormality in both breasts. The patient also reports bloody right nipple discharge and yellow left nipple discharge. Patient states no personal history of breast cancer. The patient has a family history of breast cancer. COMPARISON STUDIES: The present examination has been compared to prior imaging studies dated 01/07/2024 (mammogram), 01/30/2024 (ultrasound), 03/12/2024 (mammogram), 03/12/2024 (ultrasound) and 05/20/2024 (MRI). MAMMOGRAM TECHNIQUE: The study was acquired using full field digital technology and interpreted from soft copy. Digital Breast Tomosynthesis (DBT) images were obtained and used to assist in the interpretation of this examination. MAMMOGRAM FINDINGS: The breasts are heterogeneously dense, which may obscure small masses. Finding 1: There are no suspicious mammographic findings to correspond with the area of palpable concern in the right breast at 10 o'clock, 8 cm from the nipple. Finding 2: There are no suspicious mammographic findings to correspond with the bloody nipple discharge in the subareolar region of the right breast. Finding 3: There are no suspicious mammographic findings to correspond with the area of palpable concern in the left breast at 1 o'clock, 9 cm from the nipple. Finding 4: There are no suspicious mammographic findings to correspond with the non-bloody nipple discharge in the subareolar region of the left breast. ULTRASOUND TECHNIQUE: Targeted ultrasound of the indicated area was performed. Cam scale images were saved. ULTRASOUND FINDINGS: Finding 1: There are no suspicious sonographic findings to correspond with the area of palpable concern in the right breast at 10 o'clock, 8 cm from the nipple. A few small (6-8mm) simple cysts were incidentally noted in the area of palpable concern. Finding 2: There are no suspicious sonographic findings to correspond with the bloody nipple discharge in the subareolar region of the right breast. Finding 3: There are no suspicious sonographic findings to correspond with the area of palpable concern in the left breast at 1 o'clock, 9 cm from the nipple. Finding 4: There is a dilated duct in the left breast at 12 o'clock, subareolar region. Internal echotexture is hypoechoic. There is no effect on posterior tissue. Color flow imaging demonstrates vascularity is not present. Finding correlates to the non-bloody nipple discharge in the subareolar region of the left breast. IMPRESSION: Finding 1: There are no suspicious sonographic findings to correspond with the area of palpable concern in the right breast at 10 o'clock, 8 cm from the nipple. Clinical follow up for the site of palpable concern is recommended. Finding 2: There are no suspicious sonographic findings to correspond with the bloody nipple discharge in the subareolar region of the right breast. Clinical follow up for the reported nipple discharge is recommended. Return to annual screening mammogram is recommended. Annual mammogram will be due at age 39. Finding 3: There are no suspicious sonographic findings to correspond with the area of palpable concern in the left breast at 1 o'clock, 9 cm from the nipple. Clinical follow up for the site of palpable concern is recommended. Return to annual screening mammogram is recommended. Annual mammogram will be due at age 39. Finding 4: Dilated duct in the left breast at 12 o'clock, subareolar region. This has an appearance of a dilated duct with debris. Ultrasound-guided biopsy is recommended. BI-RADS Category 4A: Suspicious - Low suspicion for malignancy Results and recommendations reviewed with the patient. Informed consent was signed in the office today. The patient was provided information to schedule the recommended biopsy appointment. RISK: Based on the Tyrer-Cuzick (TC) risk assessment model, this patient has a 12.1% lifetime risk of developing breast cancer, meaning they are at average risk for developing breast cancer. However, this is only an estimate based on available history provided on the patient's questionnaire. We encourage all patients to talk with their providers about these results, further recommendations for managing breast health, and appropriate supplemental screening options if the patient has dense breast tissue. Interpreting Radiologist: Lea Almanzar M.D. Electronically signed on: 06/25/2024 Biochemistry Professor: BISHOP Transcribe Date/Time: Jun 25 2024 2:1 (more content not included)... Normal [facility] No Panel InformationOrdered By: [facility] Provider on 06-25-2024 [facility] No Panel Informationon 06-25 Radiology Study observation (narrative) [facility] US Breast - left limitedon 0 06-25-2024 IMPRESSION: Finding 1: There are no suspicious sonographic findings to correspond with the area of palpable concern in the right breast at 10 o'clock, 8 cm from the nipple. Clinical follow up for the site of palpable concern is recommended. Finding 2: There are no suspicious sonographic findings to correspond with the bloody nipple discharge in the subareolar region of the right breast. Clinical follow up for the reported nipple discharge is recommended. Return to annual screening mammogram is recommended. Annual mammogram will be due at age 39. Finding 3: There are no suspicious sonographic findings to correspond with the area of palpable concern in the left breast at 1 o'clock, 9 cm from the nipple. Clinical follow up for the site of palpable concern is recommended. Return to annual screening mammogram is recommended. Annual mammogram will be due at age 39. Finding 4: Dilated duct in the left breast at 12 o'clock, subareolar region. This has an appearance of a dilated duct with debris. Ultrasound-guided biopsy is recommended. BI-RADS Category 4A: Suspicious - Low suspicion for malignancy Results and recommendations reviewed with the patient. Informed consent was signed in the office today. The patient was provided information to schedule the recommended biopsy appointment. RISK: Based on the Tyrer-Cuzick (TC) risk assessment model, this patient has a 12.1% lifetime risk of developing breast cancer, meaning they are at average risk for developing breast cancer. However, this is only an estimate based on available history provided on the patient's questionnaire. We encourage all patients to talk with their providers about these results, further recommendations for managing breast health, and appropriate supplemental screening options if the patient has dense breast tissue. Interpreting Radiologist: Lea Almanzar M.D. Electronically signed on: 06/25/2024 Biochemistry Professor: BISHOP Transcridalton Date/Time: Jun 25 2024 2:11P Dictated by : LEA ALMANZAR MD This examination was interpreted and the report reviewed and electronically signed by: LEA ALMANZAR MD on Jun 25 2024 4:12PM [facility] [place] DIVISION OF RADIOLOGY * * *Final Report* * * DATE OF EXAM: Jun 25 2024 2:21PM [facility] [place] SAJI BREAST LTD [place] / PROCEDURE REASON: multiple diagnoses * * * * Physician Interpretation * * * * RESULT: [place] [id number] [facility] [place] [address] #[id number] - [facility] MARCO ZEE #[id number] - [facility] US BREAST LTD LT #[id number] - [facility] US BREAST LTD RT HISTORY: 34 year-old patient seen for diagnostic evaluation of a palpable abnormality in both breasts. The patient also reports bloody right nipple discharge and yellow left nipple discharge. Patient states no personal history of breast cancer. The patient has a family history of breast cancer. COMPARISON STUDIES: The present examination has been compared to prior imaging studies dated 01/07/2024 (mammogram), 01/30/2024 (ultrasound), 03/12/2024 (mammogram), 03/12/2024 (ultrasound) and 05/20/2024 (MRI). MAMMOGRAM TECHNIQUE: The study was acquired using full field digital technology and interpreted from soft copy. Digital Breast Tomosynthesis (DBT) images were obtained and used to assist in the interpretation of this examination. MAMMOGRAM FINDINGS: The breasts are heterogeneously dense, which may obscure small masses. Finding 1: There are no suspicious mammographic findings to correspond with the area of palpable concern in the right breast at 10 o'clock, 8 cm from the nipple. Finding 2: There are no suspicious mammographic findings to correspond with the bloody nipple discharge in the subareolar region of the right breast. Finding 3: There are no suspicious mammographic findings to correspond with the area of palpable concern in the left breast at 1 o'clock, 9 cm from the nipple. Finding 4: There are no suspicious mammographic findings to correspond with the non-bloody nipple discharge in the subareolar region of the left breast. ULTRASOUND TECHNIQUE: Targeted ultrasound of the indicated area was performed. Cam scale images were saved. ULTRASOUND FINDINGS: Finding 1: There are no suspicious sonographic findings to correspond with the area of palpable concern in the right breast at 10 o'clock, 8 cm from the nipple. A few small (6-8mm) simple cysts were incidentally noted in the area of palpable concern. Finding 2: There are no suspicious sonographic findings to correspond with the bloody nipple discharge in the subareolar region of the right breast. Finding 3: There are no suspicious sonographic findings to correspond with the area of palpable concern in the left breast at 1 o'clock, 9 cm from the nipple. Finding 4: There is a dilated duct in the left breast at 12 o'clock, subareolar region. Internal echotexture is hypoechoic. There is no effect on posterior tissue. Color flow imaging demonstrates vascularity is not present. Finding correlates to the non-bloody nipple discharge in the subareolar region of the left breast. DIVISION OF RADIOLOGY Provider, [facility] - 06/25/2024 * * *Final Report* * * DATE OF EXAM: Jun 25 2024 2:21PM [facility] [id number] - [facility] [email or web address] BREAST SupportBee LT / PROCEDURE REASON: multiple diagnoses * * * * Physician Interpretation * * * * RESULT: [address] [place] [address] #[id number] - [facility] MARCO Mykel HARVEY SAADIA #[id number] - [facility] [email or web address] BREAST SupportBee LT #[id number] - [facility] [email or web address] BREAST LTD RT HISTORY: 34 year-old patient seen for diagnostic evaluation of a palpable abnormality in both breasts. The patient also reports bloody right nipple discharge and yellow left nipple discharge. Patient states no personal history of breast cancer. The patient has a family history of breast cancer. COMPARISON STUDIES: The present examination has been compared to prior imaging studies dated 01/07/2024 (mammogram), 01/30/2024 (ultrasound), 03/12/2024 (mammogram), 03/12/2024 (ultrasound) and 05/20/2024 (MRI). MAMMOGRAM TECHNIQUE: The study was acquired using full field digital technology and interpreted from soft copy. Digital Breast Tomosynthesis (DBT) images were obtained and used to assist in the interpretation of this examination. MAMMOGRAM FINDINGS: The breasts are heterogeneously dense, which may obscure small masses. Finding 1: There are no suspicious mammographic findings to correspond with the area of palpable concern in the right breast at 10 o'clock, 8 cm from the nipple. Finding 2: There are no suspicious mammographic findings to correspond with the bloody nipple discharge in the subareolar region of the right breast. Finding 3: There are no suspicious mammographic findings to correspond with the area of palpable concern in the left breast at 1 o'clock, 9 cm from the nipple. Finding 4: There are no suspicious mammographic findings to correspond with the non-bloody nipple discharge in the subareolar region of the left breast. ULTRASOUND TECHNIQUE: Targeted ultrasound of the indicated area was performed. Cam scale images were saved. ULTRASOUND FINDINGS: Finding 1: There are no suspicious sonographic findings to correspond with the area of palpable concern in the right breast at 10 o'clock, 8 cm from the nipple. A few small (6-8mm) simple cysts were incidentally noted in the area of palpable concern. Finding 2: There are no suspicious sonographic findings to correspond with the bloody nipple discharge in the subareolar region of the right breast. Finding 3: There are no suspicious sonographic findings to correspond with the area of palpable concern in the left breast at 1 o'clock, 9 cm from the nipple. Finding 4: There is a dilated duct in the left breast at 12 o'clock, subareolar region. Internal echotexture is hypoechoic. There is no effect on posterior tissue. Color flow imaging demonstrates vascularity is not present. Finding correlates to the non-bloody nipple discharge in the subareolar region of the left breast. IMPRESSION IMPRESSION: Finding 1: There are no suspicious sonographic findings to correspond with the area of palpable concern in the right breast at 10 o'clock, 8 cm from the nipple. Clinical follow up for the site of palpable concern is recommended. Finding 2: There are no suspicious sonographic findings to correspond with the bloody nipple discharge in the subareolar region of the right breast. Clinical follow up for the reported nipple discharge is recommended. Return to annual screening mammogram is recommended. Annual mammogram will be due at age 39. Finding 3: There are no suspicious sonographic findings to correspond with the area of palpable concern in the left breast at 1 o'clock, 9 cm from the nipple. Clinical follow up for the site of palpable concern is recommended. Return to annual screening mammogram is recommended. Annual mammogram will be due at age 39. Finding 4: Dilated duct in the left breast at 12 o'clock, subareolar region. This has an appearance of a dilated duct with debris. Ultrasound-guided biopsy is recommended. BI-RADS Category 4A: Suspicious - Low suspicion for malignancy Results and recommendations reviewed with the patient. Informed consent was signed in the office today. The patient was provided information to schedule the recommended biopsy appointment. RISK: Based on the Tyrer-Cuzick (TC) risk assessment model, this patient has a 12.1% lifetime risk of developing breast cancer, meaning they are at average risk for developing breast cancer. However, this is only an estimate based on available history provided on the patient's questionnaire. We encourage all patients to talk with their providers about these results, further recommendations for managing breast health, and appropriate supplemental screening options if the patient has dense breast tissue. (more content not included)... [facility] US Breast - right limitedon 06-25-2024 IMPRESSION: Finding 1: There are no suspicious sonographic findings to correspond with the area of palpable concern in the right breast at 10 o'clock, 8 cm from the nipple. Clinical follow up for the site of palpable concern is recommended. Finding 2: There are no suspicious sonographic findings to correspond with the bloody nipple discharge in the subareolar region of the right breast. Clinical follow up for the reported nipple discharge is recommended. Return to annual screening mammogram is recommended. Annual mammogram will be due at age 39. Finding 3: There are no suspicious sonographic findings to correspond with the area of palpable concern in the left breast at 1 o'clock, 9 cm from the nipple. Clinical follow up for the site of palpable concern is recommended. Return to annual screening mammogram is recommended. Annual mammogram will be due at age 39. Finding 4: Dilated duct in the left breast at 12 o'clock, subareolar region. This has an appearance of a dilated duct with debris. Ultrasound-guided biopsy is recommended. BI-RADS Category 4A: Suspicious - Low suspicion for malignancy Results and recommendations reviewed with the patient. Informed consent was signed in the office today. The patient was provided information to schedule the recommended biopsy appointment. RISK: Based on the Tyrer-Cuzick (TC) risk assessment model, this patient has a 12.1% lifetime risk of developing breast cancer, meaning they are at average risk for developing breast cancer. However, this is only an estimate based on available history provided on the patient's questionnaire. We encourage all patients to talk with their providers about these results, further recommendations for managing breast health, and appropriate supplemental screening options if the patient has dense breast tissue. Interpreting Radiologist: Lea Almanzar M.D. Electronically signed on: 06/25/2024 Biochemistry Professor: BISHOP Transcridalton Date/Time: Jun 25 2024 2:10P Dictated by : LEA ALMANZAR MD This examination was interpreted and the report reviewed and electronically signed by: LEA ALMANZAR MD on Jun 25 2024 4:12PM [facility] DIVISION OF RADIOLOGY * * *Final Report* * * DATE OF EXAM: Jun 25 2024 2:31PM [facility] [place] [facility] [email or web address] BREAST LTD RT / PROCEDURE REASON: multiple diagnoses * * * * Physician Interpretation * * * * RESULT: [place] [address] #[id number] - SAJI DIAG W HARVEY SAADIA #[id number] - [facility] US BREAST LTD LT #[id number] - [facility] [email or web address] BREAST LTD RT HISTORY: 34 year-old patient seen for diagnostic evaluation of a palpable abnormality in both breasts. The patient also reports bloody right nipple discharge and yellow left nipple discharge. Patient states no personal history of breast cancer. The patient has a family history of breast cancer. COMPARISON STUDIES: The present examination has been compared to prior imaging studies dated 01/07/2024 (mammogram), 01/30/2024 (ultrasound), 03/12/2024 (mammogram), 03/12/2024 (ultrasound) and 05/20/2024 (MRI). MAMMOGRAM TECHNIQUE: The study was acquired using full field digital technology and interpreted from soft copy. Digital Breast Tomosynthesis (DBT) images were obtained and used to assist in the interpretation of this examination. MAMMOGRAM FINDINGS: The breasts are heterogeneously dense, which may obscure small masses. Finding 1: There are no suspicious mammographic findings to correspond with the area of palpable concern in the right breast at 10 o'clock, 8 cm from the nipple. Finding 2: There are no suspicious mammographic findings to correspond with the bloody nipple discharge in the subareolar region of the right breast. Finding 3: There are no suspicious mammographic findings to correspond with the area of palpable concern in the left breast at 1 o'clock, 9 cm from the nipple. Finding 4: There are no suspicious mammographic findings to correspond with the non-bloody nipple discharge in the subareolar region of the left breast. ULTRASOUND TECHNIQUE: Targeted ultrasound of the indicated area was performed. Cam scale images were saved. ULTRASOUND FINDINGS: Finding 1: There are no suspicious sonographic findings to correspond with the area of palpable concern in the right breast at 10 o'clock, 8 cm from the nipple. A few small (6-8mm) simple cysts were incidentally noted in the area of palpable concern. Finding 2: There are no suspicious sonographic findings to correspond with the bloody nipple discharge in the subareolar region of the right breast. Finding 3: There are no suspicious sonographic findings to correspond with the area of palpable concern in the left breast at 1 o'clock, 9 cm from the nipple. Finding 4: There is a dilated duct in the left breast at 12 o'clock, subareolar region. Internal echotexture is hypoechoic. There is no effect on posterior tissue. Color flow imaging demonstrates vascularity is not present. Finding correlates to the non-bloody nipple discharge in the subareolar region of the left breast. DIVISION OF RADIOLOGY Provider, [facility] - 06/25/2024 * * *Final Report* * * DATE OF EXAM: Jun 25 2024 2:31PM [facility] [place] [facility] [email or web address] BREAST LTD RT / PROCEDURE REASON: multiple diagnoses * * * * Physician Interpretation * * * * RESULT: [place] [address] #[id number] - [facility] MARCO ALFAOR SAADIA #[id number] - [facility] US BREAST LTD LT #[id number] - [facility] US BREAST LTD RT HISTORY: 34 year-old patient seen for diagnostic evaluation of a palpable abnormality in both breasts. The patient also reports bloody right nipple discharge and yellow left nipple discharge. Patient states no personal history of breast cancer. The patient has a family history of breast cancer. COMPARISON STUDIES: The present examination has been compared to prior imaging studies dated 01/07/2024 (mammogram), 01/30/2024 (ultrasound), 03/12/2024 (mammogram), 03/12/2024 (ultrasound) and 05/20/2024 (MRI). MAMMOGRAM TECHNIQUE: The study was acquired using full field digital technology and interpreted from soft copy. Digital Breast Tomosynthesis (DBT) images were obtained and used to assist in the interpretation of this examination. MAMMOGRAM FINDINGS: The breasts are heterogeneously dense, which may obscure small masses. Finding 1: There are no suspicious mammographic findings to correspond with the area of palpable concern in the right breast at 10 o'clock, 8 cm from the nipple. Finding 2: There are no suspicious mammographic findings to correspond with the bloody nipple discharge in the subareolar region of the right breast. Finding 3: There are no suspicious mammographic findings to correspond with the area of palpable concern in the left breast at 1 o'clock, 9 cm from the nipple. Finding 4: There are no suspicious mammographic findings to correspond with the non-bloody nipple discharge in the subareolar region of the left breast. ULTRASOUND TECHNIQUE: Targeted ultrasound of the indicated area was performed. Cam scale images were saved. ULTRASOUND FINDINGS: Finding 1: There are no suspicious sonographic findings to correspond with the area of palpable concern in the right breast at 10 o'clock, 8 cm from the nipple. A few small (6-8mm) simple cysts were incidentally noted in the area of palpable concern. Finding 2: There are no suspicious sonographic findings to correspond with the bloody nipple discharge in the subareolar region of the right breast. Finding 3: There are no suspicious sonographic findings to correspond with the area of palpable concern in the left breast at 1 o'clock, 9 cm from the nipple. Finding 4: There is a dilated duct in the left breast at 12 o'clock, subareolar region. Internal echotexture is hypoechoic. There is no effect on posterior tissue. Color flow imaging demonstrates vascularity is not present. Finding correlates to the non-bloody nipple discharge in the subareolar region of the left breast. IMPRESSION IMPRESSION: Finding 1: There are no suspicious sonographic findings to correspond with the area of palpable concern in the right breast at 10 o'clock, 8 cm from the nipple. Clinical follow up for the site of palpable concern is recommended. Finding 2: There are no suspicious sonographic findings to correspond with the bloody nipple discharge in the subareolar region of the right breast. Clinical follow up for the reported nipple discharge is recommended. Return to annual screening mammogram is recommended. Annual mammogram will be due at age 39. Finding 3: There are no suspicious sonographic findings to correspond with the area of palpable concern in the left breast at 1 o'clock, 9 cm from the nipple. Clinical follow up for the site of palpable concern is recommended. Return to annual screening mammogram is recommended. Annual mammogram will be due at age 39. Finding 4: Dilated duct in the left breast at 12 o'clock, subareolar region. This has an appearance of a dilated duct with debris. Ultrasound-guided biopsy is recommended. BI-RADS Category 4A: Suspicious - Low suspicion for malignancy Results and recommendations reviewed with the patient. Informed consent was signed in the office today. The patient was provided information to schedule the recommended biopsy appointment. RISK: Based on the Tyrer-Cuzick (TC) risk assessment model, this patient has a 12.1% lifetime risk of developing breast cancer, meaning they are at average risk for developing breast cancer. However, this is only an estimate based on available history provided on the patient's questionnaire. We encourage all patients to talk with their providers about these results, further recommendations for managing breast health, and appropriate supplemental screening options if the patient has dense breast tissue. (more content not included)... [facility] Kt 05-21-2024 AKUA Telephone (CARLOS) ----- SULLY ENRIQUEZ ([id number]) 1990 F Date Time Provider Department 05/21/24 PRINCE MON During your visit today, we recorded the following information about you: Prince Mon PA-C 05/23/2024 3:14 PM Signed Called patient to review results of breast MRI which did not show any suspicious masses or NME in either breast/possible correlates for spontaneous bloody/clear right nipple discharge. Extensive background enhancement bilaterally noted. Patient reports she is continuing to experience right nipple discharge in addition to severe bilateral diffuse breast pain. She states she has tried proper bra fitting, caffeine cessation, and over the counter medications (she was unsure if this was EPO or vitamin E). She is also feeling several areas of new small lumps diffusely over both breasts and expresses concern that the cause of her pain is breast cancer. We discussed that bilateral, diffuse breast pain is very rarely a sign of breast cancer especially in the setting of negative imaging and most often is hormonally-driven. Provided continued reassurance regarding her breast pain and encouraged her to try EPO and vitamin E with Voltaren for localized pain. Also advised discussing possible hormonal correlate with her head of english. In regards to her right bloody/clear spontaneous nipple discharge with negative imaging, we discussed it would be reasonable to either repeat imaging in 6 months or consult a breast surgeon for possible central duct excision (she is s/p hysterectomy and does not plan to breastfeed in the future). Patient declined either suggestion at this time and states she will call back should she decide to proceed. Emphasized that she can always schedule a clinical exam should she have any areas of concern on self-exam. Prince Mon PA-C Allergies As of Date: 05/21/2024 Noted Allergy Reaction CIPROFLOXACIN 03/06/2021 16 - Unknown DICYCLOMINE 03/06/2021 16 - Unknown KETOROLAC 03/06/2021 16 - Unknown LORAZEPAM 03/06/2021 16 - Unknown METHYLPREDNISOLONE 01/06/2024 14 - Other: See Comments Comments: Rash, blistering NITROFURANTOIN 03/06/2021 16 - Unknown PENICILLINS 03/06/2021 16 - Unknown PREDNISONE 12/26/2023 5 - Intolerance REGLAN (METOCLOPRAMIDE) 03/06/2021 16 - Unknown ZITHROMAX (AZITHROMYCIN) 03/06/2021 16 - Unknown Date Reviewed: 05/20/2024 Reviewed by: Charly Galaviz RT(R) - Fully Assessed Reason for Visit: Results [95] Prescriptions as of 05/23/2024 - ondansetron (ZOFRAN) 4 mg tablet Take 1 tablet by mouth every 8 hours as needed for nausea/vomiting. - acetaminophen (TYLENOL) 325 mg tablet Take 2 tablets by mouth every 6 hours as needed (for pain.). - tizanidine HCl (ZANAFLEX ORAL) Zanaflex - Phentermine HCl 37.5 mg tablet once daily. - ALPRAZolam (XANAX) 1 mg tablet Take 1 mg by mouth twice daily as needed. 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 [address] [place] [address] #[id number] - MRI BREAST WO/W IVCON SAADIA HISTORY: 34-year-old woman status post surgical excision of biopsy-proven fibroadenoma in the right breast 8:00 position in December 2023. Patient underwent diagnostic right mammogram and ultrasound 03/12/2024 with that report indicating clear right nipple discharge and palpable areas of concern in the 6:00 and 12:00 positions of the right breast. Mammographic and sonographic evaluation reported benign findings. Per the patient's office visit note of 03/12/2024, the patient reported experiencing nonspontaneous bloody right discharge 4-5 days prior to her appointment with a second occurrence of bloody nipple discharge the following day noted to be spontaneous. Clear nipple discharge reported several months prior. Patient noted to have nipple piercings bilaterally. COMPARISON STUDIES: The present examination has been compared to prior imaging studies dated 06/25/2023 (mammogram), 09/08/2023 (mammogram), 01/07/2024 (mammogram), 01/30/2024 (ultrasound), 03/12/2024 (ultrasound) and 03/12/2024 (mammogram). BREAST MRI: TECHNIQUE: The patient was studied using the dedicated breast coil in the Siemens 1.5 Nicole scanner. Initial axial T1W NFS, STIR imaging was carried out followed by axial T1-weighted GRE imaging both before and after IV administration of 10 ml of Elucirem. Subsequently, subtraction imaging and 3-D reconstruction were completed on an independent workstation. An additional [id number] resolution sequence was performed after the first two 1 minute post-contrast sequences. Complex volumetric analysis requiring post processing was performed using a semi-automated software Lvmamaacad, on an independent workstation by the physician, with images created, reviewed, and archived. FINDINGS: There is heterogeneous fibroglandular tissue. There is marked background parenchymal enhancement, which could obscure a small or non-invasive lesion. The background parenchymal enhancement is symmetrical. Extensive enhancement throughout the breasts bilaterally most consistent with marked background enhancement. No dominant suspicious enhancing mass or unique non mass enhancement in either breast. There are mildly dilated ducts bilaterally containing T1 hyperintense material without discrete associated suspicious enhancement. No gross internal mammary or axillary adenopathy bilaterally. IMPRESSION: Extensive background enhancement demonstrated bilaterally. No dominant suspicious enhancing mass or unique non mass enhancement in either breast. Patient is under the care of Prince Mon PA-C. Continued surgical consultation recommended with management to be based on clinical concern. Follow up with ACR and NCCN guidelines. BI-RADS Category 2: Benign Interpreting Radiologist: Ryan Sheppard M.D. Electronically signed on: 05/21/2024 Biochemistry Professor: BISHOP Transcribe Date/Time: May 20 2024 12:55P Dictated by : RYAN SHEPPARD MD This examination was interpreted and the report reviewed and electronically signed by: RYAN SHEPPARD MD on May 21 2024 8:05AM EST [id number] Normal [facility] CBC W Auto Differential pane l (Bld)on 05-18-2024 Interpretation and review of laboratory results Abnormal Bon [facility] (RBC) [Mass/Vol] 34.3 % 33.0 - 37.0 % [facility] Segmented neutrophils/100 WBC (Bld) 63.6 % Bon [facility] Bon [facility] CBC With Platelet and Differ entialon 05-18-2024 Basophils (Bld) [#/Vol] 0.0 10*3/uL Normal 0.0-0.[address] [facility] Comment on above: Performed By: #### C BCWD #### [facility] [address] [place] [address] Basophils/100 WBC (Bld) 0.3 % Normal [facility] Comment on above: Performed By: #### C BCWD #### [facility] [address] [place] [address] Eosinophils (Bld) [#/Vol] 0.1 10*3/uL Normal 0.0-0.[address] [facility] Comment on above: Performed By: #### C BCWD #### [facility] [address] [place] [address] Eosinophils/100 WBC (Bld) 1.2 % Normal [facility] Comment on above: Performed By: #### C BCWD #### [facility] [address] [place] [address] Erythrocyte distribution width (RBC) [Ratio] 12.1 % Normal 11.5-14.[address] [facility] Comment on above: Performed By: #### C BCWD #### [facility] [address] [place] [address] Hematocrit (Bld) [Volume fraction] 44.0 % Normal 37.0-47.[address] [facility] Comment on above: Performed By: #### C BCWD #### [facility] [address] [place] [address] Hemoglobin (Bld) [Mass/Vol] 15.1 g/dL Normal 12.0-16.[address] [facility] Comment on above: Performed By: #### C BCWD #### [facility] [address] [place] [address] Lymphocytes (Bld) [#/Vol] 2.3 10*3/uL Normal 1.0-4.8 [facility] Comment on above: Performed By: #### C BCWD #### [facility] [address] [place] [address] Lymphocytes/100 WBC (Bld) 26.6 % Normal [facility] Comment on above: Performed By: #### C BCWD #### [facility] [address] [place] [address] MCH (RBC) [Entitic mass] 31.5 pg Critically high 27.0-31.3 [facility] Comment on above: Performed By: #### C BCWD #### [facility] [address] [place] [address] MCHC 34.3 % Normal 33.0-37.0 [facility] Comment on above: Performed By: #### C BCWD #### [facility] [address] [place] [address] MCV (RBC) [Entitic vol] 91.9 fL Normal 79.4-94.8 [facility] Comment on above: Performed By: #### C BCWD #### [facility] [address] [place] [address] Monocytes (Bld) [#/Vol] 0.7 10*3/uL Normal 0.2-0.8 [facility] Comment on above: Performed By: #### C BCWD #### [facility] [address] [place] [address] Monocytes/100 WBC (Bld) 8.1 % Normal [facility] Comment on above: Performed By: #### C BCWD #### [facility] [address] [place] [address] Neutrophils (Bld) [#/Vol] 5.5 10*3/uL Normal 1.4-6.5 [facility] Comment on above: Performed By: #### C BCWD #### [facility] [address] [place] [address] Neutrophils/100 WBC (Bld) 63.6 % Normal [facility] Comment on above: Performed By: #### C BCWD #### [facility] [address] [place] [address] Platelets (Bld) [#/Vol] 199 10*3/uL Normal 130-400 [facility] Comment on above: Performed By: #### C BCWD #### [facility] [address] [place] [address] RBC (Bld) [#/Vol] 4.79 10*6/uL Normal 4.20-5.40 [facility] Comment on above: Performed By: #### C BCWD #### [facility] [address] [place] [address] WBC (Bld) [#/Vol] 8.7 10*3/uL Normal 4.8-10.8 [facility] Comment on above: Performed By: #### C BCWD #### [facility] [address] [place] [address] CT HEAD WO CONTRASTon 2024 CT HEAD WO CONTRAST EXAM: CT Head Without Intravenous Contrast EXAM DATE/TIME: 05/18/2024 12:56 pm CLINICAL HISTORY: ORDERING SYSTEM PROVIDED HISTORY: seizure, headache TECHNOLOGIST PROVIDED HISTORY: Reason for exam:->seizure, headache Has a code stroke or stroke alert been called?->No Decision Support Exception - unselect if not a suspected or confirmed emergency medical condition->Emergency Medical Condition (MA) What reading provider will be dictating this exam?->CRC TECHNIQUE: Axial computed tomography images of the head/brain without intravenous contrast. This CT exam was performed using one or more of the following dose reduction techniques: automated exposure control, adjustment of the mA and/or kV according to patient size, and/or use of iterative reconstruction technique. COMPARISON: No relevant prior studies available. FINDINGS: Brain: No acute findings. No hemorrhage. No significant white matter disease. No edema. Ventricles: No acute findings. No ventriculomegaly. Bones/joints: No acute findings. No acute fracture. Soft tissues: No acute findings. Sinuses: Unremarkable as visualized. No acute sinusitis. Mastoid air cells: Unremarkable as visualized. No mastoid effusion. IMPRESSION: No acute intracranial abnormality noted. Interpreted by: Baudilio Ortiz MD Signed by: Baudilio Ortiz MD 05/18/24 Final result Normal [facility] CT Head WO contraston 2024 No acute intracranial abnormality noted. [facility] RADIOLOGY EXAM: CT Head Without Intravenous Contrast EXAM DATE/TIME: 05/18/2024 12:56 pm CLINICAL HISTORY: ORDERING SYSTEM PROVIDED HISTORY: seizure, headache TECHNOLOGIST PROVIDED HISTORY: Reason for exam:->seizure, headache Has a code stroke or stroke alert been called?->No Decision Support Exception - unselect if not a suspected or confirmed emergency medical condition->Emergency Medical Condition (MA) What reading provider will be dictating this exam?->CRC TECHNIQUE: Axial computed tomography images of the head/brain without intravenous contrast. This CT exam was performed using one or more of the following dose reduction techniques: automated exposure control, adjustment of the mA and/or kV according to patient size, and/or use of iterative reconstruction technique. COMPARISON: No relevant prior studies available. FINDINGS: Brain: No acute findings. No hemorrhage. No significant white matter disease. No edema. Ventricles: No acute findings. No ventriculomegaly. Bones/joints: No acute findings. No acute fracture. Soft tissues: No acute findings. Sinuses: Unremarkable as visualized. No acute sinusitis. Mastoid air cells: Unremarkable as visualized. No mastoid effusion. [facility] RADIOLOG[facility] Baudilio Ortiz MD - 05/18/2024 EXAM: CT Head Without Intravenous Contrast EXAM DATE/TIME: 05/18/2024 12:56 pm CLINICAL HISTORY: ORDERING SYSTEM PROVIDED HISTORY: seizure, headache TECHNOLOGIST PROVIDED HISTORY: Reason for exam:->seizure, headache Has a code stroke or stroke alert been called?->No Decision Support Exception - unselect if not a suspected or confirmed emergency medical condition->Emergency Medical Condition (MA) What reading provider will be dictating this exam?->CRC TECHNIQUE: Axial computed tomography images of the head/brain without intravenous contrast. This CT exam was performed using one or more of the following dose reduction techniques: automated exposure control, adjustment of the mA and/or kV according to patient size, and/or use of iterative reconstruction technique. COMPARISON: No relevant prior studies available. FINDINGS: Brain: No acute findings. No hemorrhage. No significant white matter disease. No edema. Ventricles: No acute findings. No ventriculomegaly. Bones/joints: No acute findings. No acute fracture. Soft tissues: No acute findings. Sinuses: Unremarkable as visualized. No acute sinusitis. Mastoid air cells: Unremarkable as visualized. No mastoid effusion. IMPRESSION: No acute intracranial abnormality noted. [facility] Radiology Study observation (narrative) [facility] CT Head WO contrastOrdered B y: Baudilio Ortiz on 05-18-[address] [facility] Work Phone: Comprehensive Metabolic Pane mitchel 05-18-2024 Albumin [Mass/Vol] 4.4 g/dL Normal 3.5-4.6 [facility] Comment on above: Performed By: #### C MP #### [facility] [address] [place] [address] ALP [Catalytic activity/Vol] 55 U/L Normal 40-130 [facility] Comment on above: Performed By: #### C MP #### [facility] [address] [place] [address] ALT [Catalytic activity/Vol] 22 U/L Normal 0-33 [facility] Comment on above: Result Comment: Spec imen hemolysis has exceeded the interference as defined by Jasvir. Result may be affected. Suggest recollection if clinically indicated. Performed By: #### C MP #### [facility] [address] [place] [address] Anion gap [Moles/Vol] 13 mmol/L Normal 9-15 [facility] Comment on above: Performed By: #### C MP #### [facility] [address] [place] [address] AST [Catalytic activity/Vol] 21 U/L Normal 0-35 [facility] Comment on above: Result Comment: Spec imen hemolysis has exceeded the interference as defined by Jasvir. Value may be falsely increased. Suggest recollection if clinically indicated. Performed By: #### C MP #### [facility] [address] [place] [address] Bilirubin [Mass/Vol] 0.4 mg/dL Normal 0.2-0.7 [facility] Comment on above: Performed By: #### C MP #### [facility] [address] [place] [address] Calcium [Mass/Vol] 9.3 mg/dL Normal 8.5-9.9 [facility] Comment on above: Performed By: #### C MP #### [facility] [address] [place] [address] Chloride [Moles/Vol] 104 mmol/L Normal 95-107 [facility] Comment on above: Performed By: #### C MP #### [facility] [address] [place] [address] CO2 [Moles/Vol] 20 mmol/L Normal 20-31 [facility] Comment on above: Performed By: #### C MP #### [facility] [address] [place] [address] Creatinine [Mass/Vol] 0.69 mg/dL Normal 0.50-0.90 [facility] Comment on above: Performed By: #### C MP #### [facility] [address] [place] [address] GFR >90.0 Normal >60 [facility] Comment on above: Result Comment: Linda atric calculator link https://www.kidney.org/professionals/kdoqi/gfr_calculatorped Effective Jan 21, 2022 These results are not intended for use in patients <18 years of age. eGFR results are calculated without a race factor using the 2020 CKD-EPI equation. Careful clinical correlation is recommended, particularly when comparing to results calculated using previous equations. The CKD-EPI equation is less accurate in patients with extremes of muscle mass, extra-renal metabolism of creatinine, excessive creatinine ingestion, or following therapy that affects renal tubular secretion. Performed By: #### C MP #### [facility] [address] [place] [address] Globulin (S) [Mass/Vol] 2.7 g/dL Normal 2.3-3.5 [facility] Comment on above: Performed By: #### C MP #### [facility] [address] [place] [address] Glucose [Mass/Vol] 96 mg/dL Normal 70-99 [facility] Comment on above: Performed By: #### C MP #### [facility] [address] [place] [address] Potassium [Moles/Vol] 4.4 mmol/L Normal 3.4-4.9 [facility] Comment on above: Result Comment: Spec imen hemolysis has exceeded the interference as defined by Jasvir. Value may be falsely increased. Suggest recollection if clinically indicated. Performed By: #### C MP #### [facility] [address] [place] [address] Protein [Mass/Vol] 7.1 g/dL Normal 6.3-8.0 [facility] Comment on above: Performed By: #### C MP #### [facility] [address] [place] [address] Sodium [Moles/Vol] 137 mmol/L Normal 135-144 [facility] Comment on above: Performed By: #### C MP #### [facility] [address] [place] [address] Urea nitrogen [Mass/Vol] 11 mg/dL Normal 6-20 [facility] Comment on above: Performed By: #### C MP #### [facility] [address] [place] [address] Comprehensive metabolic 2000 panelon 05-18-2024 Albumin [Mass/Vol] 4.4 g/dL 3.5 - 4.6 g/dL [facility] ALP [Catalytic activity/Vol] 55 U/L 40 - 130 U/L [facility] ALT [Catalytic activity/Vol] 22 U/L 0 - 33 U/L [facility] Comment on above: Specimen hemolysis h as exceeded the interference as defined by Jasvir. Result may be affected. Suggest recollection if clinically indicated. Anion gap [Moles/Vol] 13 mmol/L [facility] AST [Catalytic activity/Vol] 21 U/L 0 - 35 U/L [facility] Comment on above: Specimen hemolysis h as exceeded the interference as defined by Jasvir. Value may be falsely increased. Suggest recollection if clinically indicated. Bilirubin [Mass/Vol] 0.4 mg/dL 0.2 - 0 .7 mg/dL [facility] [employer] Calcium [Mass/Vol] 9.3 mg/dL 8.5 - 9.9 mg/dL [facility] [employer] Chloride [Moles/Vol] 104 mmol/L [facility] [employer] CO2 [Moles/Vol] 20 mmol/L [facility] [employer] [facility] Creatinine [Mass/Vol] 0.69 mg/dL 0.50 - 0.90 mg/dL [facility] GFR/1.73 sq M.predicted among non-blacks MDRD (S/P/Bld) [Vol rate/Area] 60 - PINF [facility] Comment on above: Pediatric calculator link https://www.kidney.org/professionals/kdoqi/gfr_calculatorped Effective Jan 21, 2022 These results are not intended for use in patients <18 years of age. eGFR results are calculated without a race factor using the 2020 CKD-EPI equation. Careful clinical correlation is recommended, particularly when comparing to results calculated using previous equations. The CKD-EPI equation is less accurate in patients with extremes of muscle mass, extra-renal metabolism of creatinine, excessive creatinine ingestion, or following therapy that affects renal tubular secretion. Globulin (S) [Mass/Vol] 2.7 g/dL 2.3 - 3.5 g/dL [facility] Glucose [Mass/Vol] 96 mg/dL 70 - 99 mg/dL [employer] Potassium [Moles/Vol] 4.4 mmol/L [facility] Comment on above: Specimen hemolysis h as exceeded the interference as defined by Jasvir. Value may be falsely increased. Suggest recollection if clinically indicated. Protein [Mass/Vol] 7.1 g/dL 6.3 - 8.0 g/dL [facility] Sodium [Moles/Vol] 137 mmol/L [facility] Urea nitrogen [Mass/Vol] 11 mg/dL 6 - 20 mg/dL [facility] Magnesiumon 05-18-2024 Magnesium [Mass/Vol] 2.1 mg/dL 1.7 - 2 .4 mg/dL [facility] Magnesium [Mass/Vol] 2.1 mg/dL Normal 1.7-2.4 [facility] Comment on above: Performed By: #### M G #### [facility] [address] [place] [address] No Panel Informationon 05-[address] [facility] UR Drugs of Abuse Panelon Drug Screen Comment see below Normal [facility] Comment on above: Result Comment: This method is a screening test to detect only these drug classes as part of a medical workup. Confirmatory testing by another method should be ordered if clinically indicated. Performed By: #### U DRGS #### [facility] [address] [place] [address] UR Benzo Screen Positive Abnormal Negative < [facility] Comment on above: Performed By: #### U DRGS #### [facility] [address] [place] [address] UR Amphetamines Screen Negative Normal Negative < [facility] Comment on above: Performed By: #### U DRGS #### [facility] [address] [place] [address] UR Barbiturates Screen Negative Normal Negative < [facility] Comment on above: Performed By: #### U DRGS #### [facility] [address] [place] [address] UR Cannabinoids Screen Negative Normal Negative < [facility] Comment on above: Performed By: #### U DRGS #### [facility] [address] [place] [address] UR Cocaine Screen Negative Normal Negative < [facility] Comment on above: Performed By: #### U DRGS #### [facility] [address] [place] [address] UR Fentanyl Screen Negative Normal Negative < [facility] Comment on above: Performed By: #### U DRGS #### [facility] [address] [place] [address] UR Methadone Screen Negative Normal Negative < [facility] Comment on above: Performed By: #### U DRGS #### [facility] [address] [place] [address] UR Opiates Screen Negative Normal Negative < [facility] Comment on above: Performed By: #### U DRGS #### [facility] [address] [place] [address] UR Oxycodone Screen Negative Normal Negative < [facility] Comment on above: Performed By: #### U DRGS #### [facility] [address] [place] [address] UR PCP Screen Negative Normal Negative < [facility] Comment on above: Performed By: #### U DRGS #### [facility] [address] [place] [address] UR Propoxyphene Screen Negative Normal Negative < [facility] [facility] Comment on above: Performed By: #### U DRGS #### [facility] [address] [place] [address] Urine Drug Screenon 05-18-19 25 Amphetamines Ql (U) Negative Negative <1000 ng/mL [employer] Barbiturates Screen Ql (U) Negative Negative < 200 ng/mL [employer] Benzodiazepines Ql (U) Positive Abnormal Negat wang < 200 ng/mL [employer] Cannabinoids Screen Ql (U) Negative Negative < 50 ng/mL [employer] Cocaine Ql (U) Negative Negative < 300 ng/mL [employer] Drug screen comment (U) [Interp] see below [employer] Comment on above: This method is a scr eening test to detect only these drug classes as part of a medical workup. Confirmatory testing by another method should be ordered if clinically indicated. FENTANYL SCREEN, URINE Negative Negat wang < 50 ng/mL [facility] Interpretation and review of laboratory results Abnormal [facility] Methadone Screen Ql (U) Negative Nega tive <300 ng/mL [facility] Opiates Screen Ql (U) Negative Negati ve < 300 ng/mL [facility] oxyCODONE Ql (U) Negative Negative <100 ng/mL [facility] Phencyclidine Ql (U) Negative Negativ e < 25 ng/mL [facility] Propoxyphene Screen Ql (U) Negative Negative <300 ng/mL [facility] XR SHOULDER RIGHT (MIN 2 VIE WS)on 05-18-2024 XR SHOULDER RIGHT (MIN 2 VIEWS) EXAM: XR Right Shoulder Complete, 2 or More Views EXAM DATE/TIME: 05/18/2024 1:01 pm CLINICAL HISTORY: ORDERING SYSTEM PROVIDED HISTORY: pain with movement, no acute injury TECHNOLOGIST PROVIDED HISTORY: Reason for exam:->pain with movement, no acute injury What reading provider will be dictating this exam?->CRC TECHNIQUE: Two or more views of the right shoulder. COMPARISON: No relevant prior studies available. FINDINGS: Bones/joints: No acute findings. No acute fracture. No dislocation. Soft tissues: No acute findings. IMPRESSION: No acute findings in the right shoulder. Interpreted by: Baudilio Ortiz MD Signed by: Baudilio Ortiz MD 05/18/24 Final result Normal [facility] XR Shoulder - right 2 Viewso n 05-18-2024 No acute findings in the right shoulder. [facility] RADIOLOGY EXAM: XR Right Shoulder Complete, 2 or More Views EXAM DATE/TIME: 05/18/2024 1:01 pm CLINICAL HISTORY: ORDERING SYSTEM PROVIDED HISTORY: pain with movement, no acute injury TECHNOLOGIST PROVIDED HISTORY: Reason for exam:->pain with movement, no acute injury What reading provider will be dictating this exam?->CRC TECHNIQUE: Two or more views of the right shoulder. COMPARISON: No relevant prior studies available. FINDINGS: Bones/joints: No acute findings. No acute fracture. No dislocation. Soft tissues: No acute findings. [facility] RADIOLOG[facility] Baudilio Ortiz MD - 05/18/2024 EXAM: XR Right Shoulder Complete, 2 or More Views EXAM DATE/TIME: 05/18/2024 1:01 pm CLINICAL HISTORY: ORDERING SYSTEM PROVIDED HISTORY: pain with movement, no acute injury TECHNOLOGIST PROVIDED HISTORY: Reason for exam:->pain with movement, no acute injury What reading provider will be dictating this exam?->CRC TECHNIQUE: Two or more views of the right shoulder. COMPARISON: No relevant prior studies available. FINDINGS: Bones/joints: No acute findings. No acute fracture. No dislocation. Soft tissues: No acute findings. IMPRESSION: No acute findings in the right shoulder. [facility] [employer] [facility] Radiology Study observation (narrative) [facility] CNOVon 03-12-2024 CNOV Office Visit (BRCRMN ) ----- SULLY ENRIQUEZ ([id number]) 1990 F Date Time Provider Department 03/12/24 10:00 AM PRINCE MON During your visit today, we recorded the following information about you: Weight Height 105.7 kg 1.651 m Prince Mon PA-C 03/15/2024 4:18 PM Signed [facility] Department of Breast Surgical Oncology [facility] FOLLOW UP HPI: Sully Enriquez is a [...] Strain: Low Risk (12/17/2023) Received from [facility] Overall Financial Resource Strain (CARDIA) Difficulty of Paying Living Expenses: Not hard at all Food Insecurity: No Food Insecurity (12/17/2023) Received from [facility] Hunger Vital Sign (more content not included)... Normal [facility] DBT Breast - right diagnosti c [...] Edgard Cole M.D. Electronically signed on: 03/12/2024 Biochemistry Professor: BISHOP Transcridalton Date/Time: Mar 12 2024 10:58A Dictated by : EDGARD COLE MD This examination was interpreted and the report reviewed and electronically signed by: EDGARD COLE MD on Mar 12 2024 1:18PM [facility] DIVISION OF RADIOLOGY * * *Final Report* * * DATE OF EXAM: Mar 12 2024 11:12AM MCW 0629 - SAJI DIAG W HARVEY RT / PROCEDURE REASON: multiple diagnoses * * * * Physician Interpretation * * * * RESULT: [address] [place] [address] #[id number] - SAJI DIAG W HARVEY RT #[id number] - SAJI US BREAST LTD RT HISTORY: Patient is [...] the subareolar region. DIVISION OF RADIOLOGY [facility]/12/[facility]24 * * *Final Report* * * DATE OF EXAM: Mar 12 2024 11:12AM MCW 0629 - SAJI DIAG W HARVEY RT / PROCEDURE REASON: multiple diagnoses * * * * Physician Interpretation * * * * RESULT: [address] [place] [address] #[id number] - [facility] [employer] HARVEY RT #[id number] - [facility] US BREAST LTD RT HISTORY: [...] Edgard Cole M.D. Electronically signed on: 03/12/2024 Biochemistry Professor: BISHOP Transcribe Date/Time: Mar 12 2024 10:58A Dictated by : EDGARD COLE MD This examination was interpreted and the report reviewed and electronically signed by: EDGARD COLE MD on Mar 12 2024 1:18PM [facility] SAJI ALFARO RTon 024 SAJI ALFARO RT * * *Final Report* * * DATE OF EXAM: Mar 12 2024 11:12AM W 0629 - SAJI ALFARO RT / PROCEDURE REASON: multiple diagnoses * * * * Physician Interpretation * * * * RESULT: [address] [place] [address] #[id number] - SAJI MARCO ALFARO RT #[id number] - [facility] US BREAST LTD RT HISTORY: [...] Edgard Cole M.D. Electronically signed on: 03/12/2024 Biochemistry Professor: BISHOP Transcribe Date/Time: Mar 12 2024 10:58A Dictated by : EDGARD COLE MD This examination was interpreted and the report reviewed and electronically signed by: EDAGRD COLE MD on Mar 12 2024 1:18PM EST [id number] Normal [facility] [email or web address] BREAST SupportBee RTon 03-12 [facility] [email or web address] BREAST SupportBee RT * * *Final Report* * * DATE OF EXAM: Mar 12 2024 11:41AM MCW 0594 - [facility] [employer] RT / PROCEDURE REASON: multiple diagnoses * * * * Physician Interpretation * * * * RESULT: [place] [address] #[id number] - [facility] ISAACG W HARVEY RT #[id number] - [facility] Col[employer] RT HISTORY: Patient is 34 years old [...] Edgard Cole M.D. Electronically signed on: 03/12/2024 Biochemistry Professor: BISHOP Transc[employer]alton Date/Time: Mar 12 2024 11:27A Dictated by : EDGARD COLE MD This examination was interpreted and the report reviewed and electronically signed by: EDGARD COLE MD on Mar 12 2024 1:18PM EST [id number] Normal [facility] Panel InformationOrdered By: Ccf Provider on 03-12-2024 [facility] No Panel Informationon 03-12 Radiology Study observation (narrative) [facility] US Breast - right limitedon [...] Edgard Cole M.D. Electronically signed on: 03/12/2024 Biochemistry Professor: BISHOP Transcantoinette Date/Time: Mar 12 2024 11:27A Dictated by : EDGARD COLE MD This examination was interpreted and the report reviewed and electronically signed by: EDGARD COLE MD on Mar 12 2024 1:18PM EST DIVISION OF RADIOLOGY * * *Final Report* * * DATE OF EXAM: Mar 12 2024 11:41AM [facility] [place] - SAJI US BREAST LTD RT / PROCEDURE REASON: multiple diagnoses * * * * Physician Interpretation * * * * RESULT: [address] [place] [address] #[id number] - [facility] MARCO ALFARO RT #[id number] - [facility] [employer] RT HISTORY: Patient is 34 years old [...] subareolar region. DIVISION OF RADIOLOGY Provider, [facility] - 03/12/2024 * * *Final Report* * * DATE OF EXAM: Mar 12 2024 11:41AM MCW 0594 - [facility] [employer] RT / PROCEDURE REASON: multiple diagnoses * * * * Physician Interpretation * * * * RESULT: [facility] [address] [facility] [address] [place] [address] #[id number] - SAJI MARCO ALFARO RT #[id number] - [facility] US BREAST LTD RT HISTORY: [...] Edgard Cole M.D. Electronically signed on: 03/12/2024 Biochemistry Professor: BISHOP Transcribe Date/Time: Mar 12 2024 11:27A Dictated by : EDGARD COLE MD This examination was interpreted and the report reviewed and electronically signed by: EDGARD COLE MD on Mar 12 2024 1:18PM [facility] CNOVon 02-17-2024 CNOV Office Visit (ENDOLN ) ----- SULLY ENRIQUEZ ([id number]) 1990 F Date Time Provider Department 02/17/24 1:00 PM LEOBARDO ANDERSON ENDOLN During your visit today, we recorded the following information about you: Pulse Blood pressure Weight Height 83/minute 124/81 105.7 kg 1.651 m Leobardo Anderson MD 02/17/2024 2:29 PM Signed ENDOCRINOLOGY [...] [Azithrom* Unk (more content not included)... Normal [facility] CNOVon 01-30-2024 CNOV Office Visit (BRCRMN ) ----- SULLY ENRIQUEZ ([id number]) 1990 F Date Time Provider Department 01/30/24 9:30 AM PRINCE MON BRCRMN During your visit today, we recorded the following information about you: Weight Height 103.9 kg 1.651 m Prince Mon PA-C 01/30/2024 1:52 PM Addendum BREAST [...] OF colonoscopy x 2 SALPINGECTOMY Bilateral 2011 SOCIAL HISTORY: Social History Tobacco Use Smoking [...] at di (more content not included)... Normal [facility] US BREAST LTD RTon 01-29 [facility] US BREAST LTD RT * * *Final Report* * * DATE OF EXAM: Jan 30 2024 10:28AM [facility] [place] - SAJI US BREAST LTD RT / PROCEDURE REASON: multiple diagnoses * * * * Physician Interpretation * * * * RESULT: [place] [id number] [facility] [address] [place] [id number] HISTORY: Patient is 33 years old and [...] Henrique Oro M.D. Electronically signed on: 01/30/2024 Biochemistry Professor: BISHOP [employer]alton Date/Time: Jan 30 2024 10:14A Dictated by : LOUIE DOLL DO This examination was interpreted and the report reviewed and electronically signed by: HENRIQUE ORO MD on Jan 30 2024 10:36AM EST [id number] Normal [facility] US Breast - right limitedon 01-30-2024 IMPRESSION: There is no abnormality seen in the breast to correspond with the reported palpable abnormalities. Clinical follow-up is recommended. Follow up with ACR and NCCN guidelines is otherwise recommended. BI-RADS Category 1: Negative Interpreting Radiologist: Henrique Oro M.D. Electronically signed on: 01/30/2024 Biochemistry Professor: BISHOP Transcribe Date/Time: Jan 30 2024 10:14A Dictated by : LOUIE DOLL DO This examination was interpreted and the report reviewed and electronically signed by: HENRIQUE ORO MD on Jan 30 2024 10:36AM [facility] DIVISION OF RADIOLOGY * * *Final Report* * * DATE OF EXAM: Jan 30 2024 10:28AM [facility] [place] - [facility] [employer] RT / PROCEDURE REASON: multiple diagnoses * * * * Physician Interpretation * * * * RESULT: [place] [address] HISTORY: Patient is 33 years old and [...] cystic mass identified. DIVISION OF RADIOLOGY Provider, [facility] - 01/30/2024 * * *Final Report* * * DATE OF EXAM: Jan 30 2024 10:28AM [facility] [place] - [facility] [employer] RT / PROCEDURE REASON: multiple diagnoses * * * * Physician Interpretation * * * * RESULT: [place] [id number] HISTORY: Patient is 33 years old and [...] Henrique Oro M.D. Electronically signed on: 01/30/2024 Biochemistry Professor: BISHOP Transcribe Date/Time: Jan 30 2024 10:14A Dictated by : LOUIE DOLL, DO This examination was interpreted and the report reviewed and electronically signed by: HENRIQUE ORO MD on Jan 30 2024 10:36AM EST [facility] Radiology [facility]narrative[facility] US Breast - right limitedOrd ered By: Ccf Provider on 01-30-2024 [facility] CNOVon 01-19-2024 CNOV Office Visit (BRCRMN ) ----- SULLY ENRIQUEZ ([id number]) 1990 F Date Time Provider Department 01/19/24 2:45 PM PRINCE MON BRPREMCA During your visit today, we recorded the following information about you: Weight Height 103.9 kg 1.651 m Prince Mon PA-C 01/19/2024 3:40 PM Signed BREAST [...] SURGICAL PATHOLOGY: FINAL DIAGNOSIS Right breast mass, LIV-localized excision: - Fibroadenoma. - Adjacent breast tissue [...] were answered; patient has no further concerns. Prince Mon PA-C Allergies As of Date: 01/19/2024 [...] syndrome*01/06/2024 Rash [R21] 01/06/2024 Encounter Status:Closed by PRINCE MON on 01/19/24 [facility] Kt 01-09-2024 CNPN Telephone (BRCRMN) ----- SULLY ENRIQUEZ ([id number]) 1990 F Date Time Provider Department 01/09/24 JACKIE SUTTON During your visit today, we recorded the following information about you: Noel [facility] [place] M 01/09/2024 1:59 PM Signed Patient called stating that since last night she is experiencing right side pain and arm movement makes it worse (level 8), warm to touch, nausea. Patient can be reached at [phone]. Thanks Naresh Wallis 01/09/2024 4:36 PM Signed Returned call [...] Date Reviewed: 01/08/2024 Reviewed by: Maritza Beebe, RN - Fully Assessed Reason for Visit: Breast [...] syndrome*01/06/2024 Rash [R21] 01/06/2024 Encounter Status:Closed by NARESH WALLIS on 01/09/24 [facility] ANES POSTPROC EVALon 024 ANES POSTPROC EVAL HNO ID: [id number] Author: EDUARDO DAVIS MD Service: Anesthesiology Author Type: Anesthesiologist Type: Anesthesia Postprocedure Evaluation Filed: 01/08/2024 11:15 Note Text: POST ANESTHESIA EVALUATION NOTE : 1990 Procedure Summary Date: 01/08/24 Room / Location: [address] Anesthesia Start: 731 Anesthesia Stop: 922 Procedure: RIGHT LIV EXCISIONAL BIOPSY (Right: Breast) Diagnosis: Breast fibroadenoma, right (Breast fibroadenoma, right [D24.1]) Surgeons: Jackie Sutton MD Responsible Provider: Bambi Magana DO [...] of care. Anesthesia Observations No Documentation SIGNATURE: Eduardo Davis MD PATIENT NAME: Sully Enriquez DATE: January 08, 2024 TIME: 11:15 AM CSN: [id number] Normal [facility] ANES PRE-OPon 01-08-2024 ANES PRE-OP HNO ID: [id number] Author: BAMBI MAGANA DO Service: Anesthesiology Author Type: Anesthesiologist Type: Anesthesia Preprocedure Evaluation Filed: 01/08/2024 07:07 Note Text: ANESTHESIOLOGY DAY OF SURGERY NOTE : 1990 Procedure Information Date/Time: 01/08/24729 Procedure: RIGHT LIV EXCISIONAL BIOPSY (Right: Breast) Location: [address] Surgeons: Jackie Sutton MD Estimated body mass index is [...] and consent discussed: yes. Patient / Responsible Democrat agrees to proceed: yes Patient / Surrogate agrees to blood products: Yes Significant changes in the patient condition since the History and Physical, not otherwise documented in primary service progress note: no. Potential Anesthesia issues that may suggest increased risk of complications or contraindication to planned procedure: none. Vitals Value Taken Time BP 123/85 01/08/2447 Pulse 64 01/08/2447 Resp 16 01/08/24646 Temp 36.3 ?C (97.3 [...] January 08, 2024 TIME: 6:57 AM CSN: [id number] Normal [facility] HISTORY PHYSICALon HISTORY PHYSICAL HNO ID: [id number] Author: JACKIE SUTTON MD Service: General Surgery Author Type: Physician Type: H&P Filed: 01/08/2024 07:25 Note Text: UPDATED HISTORY AND PHYSICAL EXAMINATION SERVICE DATE: 01/08/2024 SERVICE TIME: 7:25 AM SENSITIVE EXAMINATION CONSENT: The sensitive examination was discussed with the Patient or Patient's Authorized Project Control Officer. As applicable, any other physician, advance practice provider, medical student, or other health professional student that will be observing or involved in the sensitive examination for educational or training purposes was discussed with the Patient or Authorized Project Control Officer. The Patient or Authorized Project Control Officer has agreed to proceed with the sensitive [...] Electronic Medical Record dated 01/08/2024, 01/06/24. SIGNATURE: Jackie Sutton MD PATIENT NAME: Sully Enriquez DATE: January 08, 2024 TIME: 7:25 AM Normal [facility] SURGICAL BREAST SPECIMEN RTon 01-08-2024 [facility] SURGICAL BREAST SPECIMEN RT * * *Final Report* * * DATE OF EXAM: Jan 08 2024 8:41AM BCW 0639 - [facility] SURGICAL BREAST SPECIMEN RT / PROCEDURE REASON: Right breast surgical specimen * * * * Physician Interpretation * * * * [place] [address] HISTORY: Right Specimen Radiograph CORRELATION: A single image of the surgical specimen demonstrates a LIV cassandra architect, a hydromark open coil clip, and a buckle clip in the specimen. IMPRESSION: SPECIMEN A single image of the surgical specimen demonstrates a LIV cassandra architect, a hydromark open coil clip, and a buckle clip in the specimen. SUMMARY: Urgent Results: The results of the specimen radiograph were discussed with Dr. Sutton in the O.R. On 01/08/2024 at 0847. Interpreting Radiologist: Kristi Cheek M.D. Biochemistry Professor: BSIHOP Transcribe Date/Time: Jan 08 2024 8:41A Dictated by : KRISTI CHEEK MD This examination was interpreted and the report reviewed and electronically signed by: KRISTI CHEEK MD on Jan 08 2024 8:50AM EST [id number] Normal [facility] OPERATIVE NOon 01-08-2024 OPERATIVE NO HNO ID: [id number] Author: JACKIE SUTTON MD Service: General Surgery Author Type: Physician Type: Operative Report Filed: 01/08/2024 08:43 Note Text: OPERATIVE/PROCEDURE REPORT LOG ID: [id number] SURGERY DATE: 01/08/2024 Incision/Procedure Start Time: 8:00 AM Incision Close/Procedure End Time: 8:42 AM Surgeon(s) and Military Equipment Specialist(s): Surgeons and Role: * Jackie Sutton MD - Primary * Modesto Goff MD - Resident - Assisting No Additional Staff SURGERY/PROCEDURES: RIGHT breast LIV AGRONOMY ADVISOR localized excisional biopsy Anesthesia: General Breast History: 06/2023 - Self palpated RIGHT breast mass. 06/25/23 ([facility]) - diagnostic bilateral mammogram/US - diffuse heterogenous density. In the right breast at 8:00 approximately 4 to 5 cm from the nipple, is a hypoechoic avascular area that measures 2.0 x 1.6 x 1.1 cm. In the right upper outer quadrant of the breast at 2.8 x 1.0 x 2.8 cm lymph node is seen. There is no cortical thickening. 07/07/23 ([facility] - US guided CNB 8:00 4-5 CMFN [...] procedure, laterality, and other pertinent information. The LIV AGRONOMY ADVISOR was localized within the breast, and its location was marked on the skin. Local anesthesia was infiltrated in a dermal and deep parenchymal pattern. A lateral inframammary incision was made. Flaps were created around the lesion, using the LIV AGRONOMY ADVISOR probe for guidance, with an adequate [...] Specimen imaging was performed which identified the LIV AGRONOMY ADVISOR, the biopsy clips, and the lesion [...] Tests Collected by Time Destination A : liv cassandra architect right breast. (suture sr short superior, long lateral) Tissue Breast, Right, Excision of Lesion SURGICAL PATHOLOGY Jackie Sutton MD 01/08/2024 7:10 AM Implantable Devices: None Drains: None Complications: None I/primary surgeon/proceduralist performed the procedure with assistance. Resident assisted with portions of the procedure , under direct supervision and the remainder of the procedure was performed by the primary surgeon/proceduralist with assistance. SIGNATURE: Jackie Sutton MD PATIENT NAME: Sully Enriquez DATE: 01/08/2024 TIME: 8:42 AM PAGER/CONTACT #: [phone] Normal [facility] SURGICAL PATHOLOGYon 024 CASE REPORT Normal [facility] Comment on above: Order Comment: Speci men Type: TISSUE SPECIMENOrdering Facility: [facility] Address: [address] [place] [address] Result Comment: Surg ical Pathology Report Case: [id number] Authorizing Provider: Jackie Sutton MD Collected: 01/08/2024 07:10 AM Ordering Location: Ambulatory Surgery Received: 01/08/2024 09:04 AM Pathologist: Pat Silveira MD Specimen: Breast, Right, Excision of Lesion, liv cassandra architect right breast. (suture sr short superior, long lateral) Performed By: #### S ####[facility] LABORATORYIA [id number] [address] LABIA [id number] [address] [place] CLINICAL HISTORY Normal [facility] Comment on above: Order Comment: Speci men Type: TISSUE SPECIMENOrdering Facility: [facility] Address: [address] [place] [address] Result Comment: Pre- op diagnosis: Breast fibroadenoma, right [D24.1] Performed By: #### S ####[facility]ORATORY[facility] [id number] [address] LABIA [id number] [address] STATES OF [facility] FINAL DIAGNOSIS Normal [facility] Comment on above: Order Comment: Speci men Type: TISSUE SPECIMENOrdering Facility: [facility] Address: [address] [place] [address] Result Comment: Righ t breast mass, LIV-localized excision: - Fibroadenoma. - Adjacent breast tissue with cystic change, apocrine metaplasia, usual ductal hyperplasia, and columnar cell change. - Core biopsy site changes and clip x 2. Performed By: #### S ####[facility] LABORATORYCLIA [id number] [address] LABCLIA [id number] [address] [place] FINAL PERFORMING LAB Normal [facility] Comment on above: Order Comment: Speci men Type: TISSUE SPECIMENOrdering Facility: [facility] Address: [address] [place] [address] Result Comment: Diag nostic interpretation performed at [facility], [address] [facility], [place] [address] CLIA# [id number] Manager Government: Columba Villasenor M.D. Performed By: #### S ####[facility] LABORATORYCLIA [id number] [address] LABCLIA [id number] [address] GROSS DESCRIPTION Normal [facility] Comment on above: Order Comment: Speci men Type: TISSUE SPECIMENOrdering Facility: [facility] Address: [address] [place] [address] Result Comment: Emma Lebron reast, Right, Excision of Lesion Received in formalin [...] x-rayed prior to sectioning to reveal a Liv cassandra architect device, a buckle clip and a HydroMARK [...] in formalin was 8:55 AM on 01/08/2024. Project Control Officer sections are submitted as follows: A1 slice [...] and posterior margin Gross examination performed at [facility], [address] [place] [address] CLIA# [id number] [facility] 01/08/24 12:49 PM Performed By: #### S ####[facility] LABORATORYCLIA [id number] [place] [id number] [facility] LABCLIA [id number] [address] [place] Basophils Auto (Bld) [#/Vol] on 01-07-2024 Basophils (Bld) [#/Vol] 0.05 10*3/uL <0.11 [facility] Basophils/100 WBC Auto (Bld) on 01-07-2024 Basophils/100 WBC (Bld) 0.8 % F [facility] Blood manual differential co mment interpretation narrativeon 01-07-2024 Manual differential comment David (Bld) [Interp] Auto [facility] CBC W Auto Differential pane l (Bld)on 01-07-2024 Basophils (Bld) [#/Vol] 0.05 10*3/uL Normal <0.11 [facility] Comment on above: Order Comment: Speci men Type: BLOOD SPECIMENOrdering Facility: [facility] Address: [address] [place] [address] Performed By: #### 5 7021-8 ####[facility] LABCLIA [id number] [place] [address] [place] Basophils/100 WBC (Bld) 0.8 % Normal C [facility] Comment on above: Order Comment: Speci men Type: BLOOD SPECIMENOrdering Facility: [facility] Address: [address] [place] [address] Performed By: #### 5 7021-8 ####[facility] LABCLIA [id number] [place] [address] [place] Differential cell count method Nom (Bld) Auto Normal [facility] Comment on above: Order Comment: Speci men Type: BLOOD SPECIMENOrdering Facility: [facility] Address: [address] [place] [address] Performed By: #### 5 7021-8 ####[facility] LABCLIA [id number] [place] [address] [place] Eosinophils (Bld) [#/Vol] 0.10 10*3/uL Normal <0.46 [facility] Comment on above: Order Comment: Speci men Type: BLOOD SPECIMENOrdering Facility: [facility] Address: [address] [place] [address] Performed By: #### 5 7021-8 ####[facility] LABCLIA [id number] [place] [address] [place] Eosinophils/100 WBC (Bld) 1.5 % Normal [facility] Comment on above: Order Comment: Speci men Type: BLOOD SPECIMENOrdering Facility: [facility] Address: [address] [place] [address] Performed By: #### 5 7021-8 ####[facility] LABCLIA [id number] [place] [address] [place] Erythrocyte distribution width (RBC) [Ratio] 11.9 % Normal 11.5-15.0 [facility] Comment on above: Order Comment: Speci men Type: BLOOD SPECIMENOrdering Facility: [facility] Address: [address] [place] [address] Performed By: #### 5 7021-8 ####[facility] LABIA [id number] [place] [address] [place] Hematocrit (Bld) [Volume fraction] 41.8 % Normal 36.0-46.0 [facility] Comment on above: Order Comment: Speci men Type: BLOOD SPECIMENOrdering Facility: [facility] Address: [address] [place] [address] Performed By: #### 5 7021-8 ####[facility] LABCLIA [id number] [place] [address] [place] Hemoglobin (Bld) [Mass/Vol] 14.1 g/dL Normal 11.5-15.5 [facility] Comment on above: Order Comment: Speci men Type: BLOOD SPECIMENOrdering Facility: [facility] Address: [address] [place] [address] Performed By: #### 5 7021-8 ####[facility] LABIA [id number] [place] [address] [place] Immature granulocytes (Bld) [#/Vol] 10*3/uL Normal <0.10 [facility] Comment on above: Order Comment: Speci men Type: BLOOD SPECIMENOrdering Facility: [facility] Address: [address] [place] [address] Performed By: #### 5 7021-8 ####[facility] LABCLIA [id number] [place] [address] [place] Immature granulocytes/100 WBC (Bld) 0.2 % Normal [facility] Comment on above: Order Comment: Speci men Type: BLOOD SPECIMENOrdering Facility: [facility] Address: [address] [place] [address] Performed By: #### 5 7021-8 ####[facility] LABCLIA [id number] [place] [address] [place] Lymphocytes (Bld) [#/Vol] 2.46 10*3/uL Normal 1.00-4.00 [facility] Comment on above: Order Comment: Speci men Type: BLOOD SPECIMENOrdering Facility: [facility] Address: [address] [place] [address] Performed By: #### 5 7021-8 ####[facility] LABCLIA [id number] [place] [address] [place] Lymphocytes/100 WBC (Bld) 36.9 % Normal [facility] Comment on above: Order Comment: Speci men Type: BLOOD SPECIMENOrdering Facility: [facility] Address: [address] [place] [address] Performed By: #### 5 7021-8 ####[facility] LABCLIA [id number] [place] [address] [place] MCH (RBC) [Entitic mass] 31.8 pg Normal 26.0-34.0 [facility] Comment on above: Order Comment: Speci men Type: BLOOD SPECIMENOrdering Facility: [facility] Address: [address] [place] [address] Performed By: #### 5 7021-8 ####[facility] LABCLIA [id number] [place] [address] [place] MCHC (RBC) [Mass/Vol] 33.7 g/dL Normal 30.5-36.0 [facility] Comment on above: Order Comment: Speci men Type: BLOOD SPECIMENOrdering Facility: [facility] Address: [address] [place] [address] Performed By: #### 5 7021-8 ####[facility] LABIA [id number] [place] [address] [place] MCV (RBC) [Entitic vol] 94.4 fL Normal 80.0-100.0 C [facility] Comment on above: Order Comment: Speci men Type: BLOOD SPECIMENOrdering Facility: [facility] Address: [address] [place] [address] Performed By: #### 5 7021-8 ####[facility] LABIA [id number] [place] [address] [place] Monocytes (Bld) [#/Vol] 0.48 10*3/uL Normal <0.87 [facility] Comment on above: Order Comment: Speci men Type: BLOOD SPECIMENOrdering Facility: [facility] Address: [address] [place] [address] Performed By: #### 5 7021-8 ####[facility] LABCLIA [id number] [place] [address] [place] Monocytes/100 WBC (Bld) 7.2 % Normal C [facility] Comment on above: Order Comment: Speci men Type: BLOOD SPECIMENOrdering Facility: [facility] Address: [address] [place] [address] Performed By: #### 5 7021-8 ####[facility] LABIA [id number] [place] [address] [place] Neutrophils (Bld) [#/Vol] 3.56 10*3/uL Normal 1.45-7.50 [facility] Comment on above: Order Comment: Speci men Type: BLOOD SPECIMENOrdering Facility: [facility] Address: [address] [place] [address] Performed By: #### 5 7021-8 ####[facility] LABCLIA [id number] [place] [address] [place] Neutrophils/100 WBC (Bld) 53.4 % Normal [facility] Comment on above: Order Comment: Speci men Type: BLOOD SPECIMENOrdering Facility: [facility] Address: [address] [place] [address] Performed By: #### 5 7021-8 ####[facility] LABCLIA [id number] [place] [address] [place] Nucleated RBC (Bld) [#/Vol] 10*3/uL Normal <0.01 [facility] Comment on above: Order Comment: Speci men Type: BLOOD SPECIMENOrdering Facility: [facility] Address: [address] [place] [address] Performed By: #### 5 7021-8 ####[facility] LABCLIA [id number] [place] [address] [place] Nucleated RBC/100 WBC (Bld) [Ratio] 0.0 /100 WBC Normal [facility] Comment on above: Order Comment: Speci men Type: BLOOD SPECIMENOrdering Facility: [facility] Address: [address] [place] [address] Performed By: #### 5 7021-8 ####[facility] LABCLIA [id number] [place] [address] [place] Platelet mean volume (Bld) [Entitic vol] 10.9 fL Normal 9.0-12.7 [facility] Comment on above: Order Comment: Speci men Type: BLOOD SPECIMENOrdering Facility: [facility] Address: [address] [place] [address] Performed By: #### 5 7021-8 ####[facility] LABCLIA [id number] [place] [address] [place] Platelets (Bld) [#/Vol] 211 10*3/uL Normal 150-400 [facility] Comment on above: Order Comment: Speci men Type: BLOOD SPECIMENOrdering Facility: [facility] Address: [address] [place] [address] Performed By: #### 5 7021-8 ####[facility] LABCLIA [id number] [place] [address] [place] RBC (Bld) [#/Vol] 4.43 10*6/uL Normal 3.90-5.20 [facility] Comment on above: Order Comment: Speci men Type: BLOOD SPECIMENOrdering Facility: [facility] Address: [address] [place] [address] Performed By: #### 5 7021-8 ####[facility] LABIA [id number] [place] [address] [place] WBC (Bld) [#/Vol] 6.66 10*3/uL Normal 3.70-11.00 [facility] Comment on above: Order Comment: Speci men Type: BLOOD SPECIMENOrdering Facility: [facility] Address: [address] [place] [address] Performed By: #### 5 7021-8 ####[facility] LABIA [id number] [place] [id number] [place] Comprehensive metabolic 2000 panelon 01-07-2024 Albumin [Mass/Vol] 4.5 g/dL Normal 3.9-4.9 [facility] Comment on above: Order Comment: Speci men Type: BLOOD SPECIMENOrdering Facility: [facility] Address: [address] [place] [address] Performed By: #### 2 4323-8 ####[facility] LABCLIA [id number] [place] [id number] [place] ALP [Catalytic activity/Vol] 49 U/L Normal 34-123 [facility] Comment on above: Order Comment: Speci men Type: BLOOD SPECIMENOrdering Facility: [facility] Address: [address] [place] [address] Performed By: #### 2 4323-8 ####[facility] LABCLIA [id number] [place] [address] [place] ALT [Catalytic activity/Vol] 21 U/L Normal 7-38 [facility] Comment on above: Order Comment: Speci men Type: BLOOD SPECIMENOrdering Facility: [facility] Address: [address] [place] [address] Performed By: #### 2 4323-8 ####[facility] LABCLIA [id number] [place] [address] [place] Anion gap [Moles/Vol] 21 mmol/L High 8-15 [facility] Comment on above: Order Comment: Speci men Type: BLOOD SPECIMENOrdering Facility: [facility] Address: [address] [place] [address] Performed By: #### 2 4323-8 ####[facility] LABCLIA [id number] [place] [address] [place] AST [Catalytic activity/Vol] 24 U/L Normal 13-35 [facility] Comment on above: Order Comment: Speci men Type: BLOOD SPECIMENOrdering Facility: [facility] Address: [address] [place] [address] Performed By: #### 2 4323-8 ####[facility] LABCLIA [id number] [place] [id number] [place] Bilirubin [Mass/Vol] 0.7 mg/dL Normal 0.2-1.3 [facility] Comment on above: Order Comment: Speci men Type: BLOOD SPECIMENOrdering Facility: [facility] Address: [address] [place] [address] Performed By: #### 2 4323-8 ####[facility] LABCLIA [id number] [address] [address] [place] Calcium [Mass/Vol] 9.1 mg/dL Normal 8.5-10.2 [facility] Comment on above: Order Comment: Speci men Type: BLOOD SPECIMENOrdering Facility: [facility] Address: [address] [place], [place] [address] Performed By: #### 2 4323-8 ####[facility] LABCLIA [id number] [place] [id number] [place] Chloride [Moles/Vol] 104 mmol/L Normal 98-107 [facility] Comment on above: Order Comment: Speci men Type: BLOOD SPECIMENOrdering Facility: [facility] Address: [address] [place], [place] [address] Performed By: #### 2 4323-8 ####[facility] LABCLIA [id number] [place] [address] [place] CO2 [Moles/Vol] 14 mmol/L Low 22-30 [facility] Comment on above: Order Comment: Speci men Type: BLOOD SPECIMENOrdering Facility: [facility] Address: [address] [place] [id number] Performed By: #### 2 4323-8 ####[facility] LABCLIA [id number] [address] [address] [place] Creatinine [Mass/Vol] 0.83 mg/dL Normal 0.58-0.96 [facility] Comment on above: Order Comment: Speci men Type: BLOOD SPECIMENOrdering Facility: [facility] Address: [address] [place] [address] Performed By: #### 2 4323-8 ####[facility] LABCLIA [id number] [place] [address] [place] Creatinine and Glomerular filtration rate.predicted panel (S/P/Bld) 95 mL/min/1.73m??? Normal >=60 [facility] Comment on above: Order Comment: Sukumar bellamy Type: BLOOD SPECIMENOrdering Facility: [facility] Address: [address] [place] [address] Result Comment: Rosalia mated Glomerular Filtration Rate [...] actual GFR. Performed By: #### 2 4323-8 ####[facility] LABIA [id number] [place] [address] [place] Glucose [Mass/Vol] 85 mg/dL Normal 74-99 [facility] Comment on above: Order Comment: Sukumar bellamy Type: BLOOD SPECIMENOrdering Facility: [facility] Address: [address] [place] [address] Result Comment: [place] Diabetes Association (ADA) provides guidance for cutoff [...] Standards of Medical Care in Diabetes 2016, [place] Diabetes Association. Diabetes Care. 2016.39(Suppl 1). Performed By: #### 2 4323-8 ####[facility] LABCLIA [id number] [place] [address] [place] Potassium [Moles/Vol] 4.1 mmol/L Normal 3.7-5.1 [facility] Comment on above: Order Comment: Speci men Type: BLOOD SPECIMENOrdering Facility: [facility] Address: [address] [place] [address] Performed By: #### 2 4323-8 ####[facility] LABCLIA [id number] [place] [address] [place] Protein [Mass/Vol] 7.1 g/dL Normal 6.3-8.0 [facility] Comment on above: Order Comment: Speci men Type: BLOOD SPECIMENOrdering Facility: [facility] Address: [address] [place] [address] Performed By: #### 2 4323-8 ####[facility] LABCLIA [id number] [place] [address] [place] Sodium [Moles/Vol] 139 mmol/L Normal 136-144 [facility] Comment on above: Order Comment: Speci men Type: BLOOD SPECIMENOrdering Facility: [facility] Address: [address] [place] [address] Performed By: #### 2 4323-8 ####[facility] LABCLIA [id number] [place] [address] [place] Urea nitrogen [Mass/Vol] 9 mg/dL Normal 7-21 [facility] Comment on above: Order Comment: Speci men Type: BLOOD SPECIMENOrdering Facility: [facility] Address: [address] [place] [address] Performed By: #### 2 4323-8 ####[facility] LABCLIA [id number] [place] [address] [place] Eosinophils/100 WBC Auto (Bl d)on 01-07-2024 Eosinophils/100 WBC (Bld) 1.5 % [facility] Erythrocyte distribution wid th Auto (RBC) [Ratio]on 01-07-2024 Erythrocyte distribution width (RBC) [Ratio] 11.9 % 11.5-15.0 [facility] Hematocrit Auto (Bld) [Volum e fraction]on 01-07-2024 Hematocrit (Bld) [Volume fraction] 41.8 % 36.0-46.0 [facility] Hemoglobin [Mass/volume] in Bloodon 01-07-2024 Hemoglobin (Bld) [Mass/Vol] 14.1 g/dL 11.5-15.5 [facility] Laboratory - Chemistry and C hemistry - challengeon 01-07-2024 Albumin [Mass/Vol] 4.5 g/dL 3.9-4.9 [facility] ALP [Catalytic activity/Vol] 49 U/L 34-123 [facility] ALT [Catalytic activity/Vol] 21 U/L 7-38 [facility] AST [Catalytic activity/Vol] 24 U/L 13-35 [facility] Bilirubin [Mass/Vol] 0.7 mg/dL 0.2-1.3 [facility] Calcium [Mass/Vol] 9.1 mg/dL 8.5-10.2 [facility] Chloride [Moles/Vol] 104 mmol/L 98-107 [facility] CO2 [Moles/Vol] 14 mmol/L Low 22-30 [facility] Creatinine [Mass/Vol] 0.83 mg/dL 0.58-0.96 [facility] Glucose [Mass/Vol] 85 mg/dL 74-99 [facility] Comment on above: The [place] Diabete [place] Association (ADA) provides guidance for [...] Standards of Medical Care in Diabetes 2016, [place] Diabetes Association. Diabetes Care. 2016.39(Suppl 1). Potassium [Moles/Vol] 4.1 mmol/L 3.7-5.1 [facility] Sodium [Moles/Vol] 139 mmol/L 136-144 [facility] Urea nitrogen [Mass/Vol] 9 mg/dL 7-21 [facility] Laboratory - Hematology and Cell countson 01-07-2024 Eosinophils (Bld) [#/Vol] 0.10 10*3/uL <0.46 [facility] Immature granulocytes/100 WBC (Bld) 0.2 % [facility] Leukocytes [#/volume] correc armaan for nucleated erythrocytes in Blood by Automated counon 01-07-2024 WBC corrected for nucl RBC Auto (Bld) [#/Vol] 6.66 k/uL 3.70-11.00 [facility] Lymphocytes Auto (Bld) [#/Vo l]on 01-07-2024 Lymphocytes (Bld) [#/Vol] 2.46 10*3/uL 1.00-4.00 [facility] Lymphocytes/100 WBC Auto (Bl d)on 01-07-2024 Lymphocytes/100 WBC (Bld) 36.9 % [facility] DIAGNOSTIC RTon 01-07-20 24 [facility] DIAGNOSTIC RT * * *Final Report* * * DATE OF EXAM: Jan 07 2024 10:19AM [facility] [place] [facility] DIAGNOSTIC RT / PROCEDURE REASON: Breast fibroadenoma, right * * * * Physician Interpretation * * * * RESULT: [address] [place] [address] HISTORY: Patient is 33 years old and [...] Finding in the right breast shows successful LIV reflector placement. Mammogram BI-RADS: Post-procedure mammogram for [...] patient has dense breast tissue. Interpreting Radiologist: Terry August M.D. Biochemistry Professor: HyperWeekMykel Transcribe Date/Time: Jan 07 2024 9:53A Dictated by : CARLOS OLMEDO DO This examination was interpreted and the report reviewed and electronically signed by: TERRY AUGUST MD on Jan 07 2024 10:47AM EST [id number] Normal [facility] US LOC BREAST RTon 01-06 [facility] US LOC BREAST RT * * *Final Report* * * DATE OF EXAM: Jan 07 2024 10:12AM W 0600 - [facility] US LOC BREAST RT / PROCEDURE REASON: Breast fibroadenoma, right * * * * Physician Interpretation * * * * RESULT: [place] [address] HISTORY: 33 year old patient presents for [...] were present throughout the entire procedure. The assistant secretary radiologist was Carlos Olmedo DO. The assistant secretary radiologist administered local anesthesia and placed the [...] targeted area. Reflector placement/activation was verified with Auditor Check following the procedure. IMPRESSION: Site 1: Successful infrared activated electromagnetic reflector device placement for a mass in the right breast at 8 o'clock posterior depth 4-5 cm from the nipple with no apparent complications. A specimen radiograph is recommended. The specimen radiograph should include the Auditor reflector, the Hydromark open coil clip, and additional biopsy marking clip. Interpreting Radiologist: Terry August M.D. Biochemistry Professor: BISHOP Transcribe Date/Time: Jan 07 2024 9:50A Dictated by : CARLOS OLMEDO DO This examination was interpreted and the report reviewed and electronically signed by: TERRY AUGUST MD on Jan 07 2024 10:46AM EST [id number] Normal [facility] MCH Auto (RBC) [Entitic mass ]on 01-07-2024 MCH (RBC) [Entitic mass] 31.8 pg 26.0-34.0 [facility] MCHC Auto (RBC) [Mass/Vol]on 01-07-2024 MCHC (RBC) [Mass/Vol] 33.7 g/dL 30.5-36.0 [facility] MCV Auto (RBC) [Entitic vol] on 01-07-2024 MCV (RBC) [Entitic vol] 94.4 fL 80.0-100.0 [facility] MG Breast - right Diagnostic for implanton 01-07-2024 IMPRESSION: Finding in the right breast shows successful LIV reflector placement. Mammogram BI-RADS: Post-procedure mammogram for [...] patient has dense breast tissue. Interpreting Radiologist: Terry August M.D. Biochemistry Professor: BISHOP Transcribe Date/Time: Jan 07 2024 9:53A Dictated by : CARLOS OLMEDO, DO This examination was interpreted and the report reviewed and electronically signed by: TERRY AUGUST MD on Jan 07 2024 10:47AM [facility] DIVISION OF RADIOLOGY * * *Final Report* * * DATE OF EXAM: Jan 07 2024 10:19AM [facility] [place] [facility] DI[facility]NO[facility] RT / PROCEDURE REASON: Breast fibroadenoma, right * * * * Physician Interpretation * * * * RESULT: [address] [place] [address] HISTORY: Patient is 33 years old and [...] obscure small masses. DIVISION [facility] RADIOLOGY [facility] * * *Final Report* * * DATE OF EXAM: Jan 07 2024 10:19AM [facility] [place] [facility] DIAGNOST[facility] RT / PROCEDURE REASON: Breast fibroadenoma, right * * * * Physician Interpretation * * * * RESULT: [facility] [address] [facility] [address] [place] [address] HISTORY: Patient is 33 years old and [...] Finding in the right breast shows successful LIV reflector placement. Mammogram BI-RADS: Post-procedure mammogram for [...] patient has dense breast tissue. Interpreting Radiologist: Terry August M.D. Biochemistry Professor: BISHOP Transcribe Date/Time: Jan 07 2024 9:53A Dictated by : CARLOS OLMEDO, This examination was interpreted and the report reviewed and electronically signed by: TERRY AUGUST MD on Jan 07 2024 10:47AM EST [facility] Radiology Study observation (narrative) [facility] Monocytes Auto (Bld) [#/Vol] on 01-07-2024 Monocytes (Bld) [#/Vol] 0.48 10*3/uL <0.87 [facility] Monocytes/100 WBC Auto (Bld) on 01-07-2024 Monocytes/100 WBC (Bld) 7.2 % [facility] Neutrophils Auto (Bld) [#/Vo l]on 01-07-2024 Neutrophils (Bld) [#/Vol] 3.56 10*3/uL 1.45-7.50 [facility] Neutrophils/100 WBC Auto (Bl d)on 01-07-2024 Neutrophils/100 WBC (Bld) 53.4 % [facility] No Panel InformationOrdered By: Ccf Provider on 01-07-2024 [facility] No Panel Informationon 01-06 Estimated GFR (CKD-EPI) 95 mL/min/1.73m??? >=60 [facility] Comment on above: Estimated Glomerular [...] # (Auto) <0.03 k/uL <0.10 [facility] Nucleated RBC Auto (Bld) [#/ Vol]on 01-07-2024 Nucleated RBC (Bld) [#/Vol] 10*3/uL <0.01 [facility] Nucleated erythrocytes [Pres ence] in Blood by Automated counton 01-07-2024 Nucleated RBC Auto Ql (Bld) 0.0 /100{WBC} [facility] PT EDon 01-07-2024 PT ED HNO ID: [id number] Author: MASHA JOHNSTON Tech Service: ? Author [...] MATERIAL: Homegoing instructions REFERRAL (RECOMMENDATION): None Normal [facility] Platelet mean volume Auto (B ld) [Entitic vol]on 01-07-2024 Platelet mean volume (Bld) [Entitic vol] 10.9 fL 9.0-12.7 [facility] Platelets Auto (Bld) [#/Vol] on 01-07-2024 Platelets (Bld) [#/Vol] 211 10*3/uL 150-400 [facility] Protein [Mass/volume] in Ser um or Plasmaon 01-07-2024 Protein [Mass/Vol] 7.1 g/dL 6.3-8.0 [facility] RBC Auto (Bld) [#/Vol]on RBC (Bld) [#/Vol] 4.43 10*6/uL 3.90-5.20 [facility] Serum or plasma anion gap de terminationon 01-07-2024 Anion gap [Moles/Vol] 21 mmol/L High 8-15 [facility] [place] Guidance for localization of Breast - righton 01-07-2024 IMPRESSION: Site 1: Successful infrared activated electromagnetic reflector device placement for a mass in the right breast at 8 o'clock posterior depth 4-5 cm from the nipple with no apparent complications. A specimen radiograph is recommended. The specimen radiograph should include the Auditor reflector, the Hydromark open coil clip, and additional biopsy marking clip. Interpreting Radiologist: Terry August M.D. Biochemistry Professor: BISHOP Transcribe Date/Time: Jan 07 2024 9:50A Dictated by : CARLOS OLMEDO, DO This examination was interpreted and the report reviewed and electronically signed by: TERRY AUGUST MD on Jan 07 2024 10:46AM [facility] DIVISION OF RADIOLOGY * * *Final Report* * * DATE OF EXAM: Jan 07 2024 10:12AM [facility] [place] [place] [facility] LOC BREAST RT / PROCEDURE REASON: Breast fibroadenoma, right * * * * Physician Interpretation * * * * RESULT: [facility] [address] [facility] DESK A10 [place] [id number] HISTORY: 33 year old patient presents for [...] were present throughout the entire procedure. The assistant secretary radiologist was Carlos Olmedo DO. The assistant secretary radiologist administered local anesthesia and placed the [...] targeted area. Reflector placement/activation was verified with Auditor Check following the procedure. DIVISION OF RADIOLOGY Provider, [facility] - 01/07/2024 * * *Final Report* * * DATE OF EXAM: Jan 07 2024 10:12AM [facility] 0600 - [facility] US LOC BREAST RT / PROCEDURE REASON: Breast fibroadenoma, right * * * * Physician Interpretation * * * * RESULT: [place] [id number] [facility] DESK A10 [place] [id number] HISTORY: 33 year old patient presents for [...] were present throughout the entire procedure. The assistant secretary radiologist was Carlos Olmedo DO. The assistant secretary radiologist administered local anesthesia and placed the [...] targeted area. Reflector placement/activation was verified with Auditor Check following the procedure. IMPRESSION IMPRESSION: Site 1: Successful infrared activated electromagnetic reflector device placement for a mass in the right breast at 8 o'clock posterior depth 4-5 cm from the nipple with no apparent complications. A specimen radiograph is recommended. The specimen radiograph should include the Auditor reflector, the Hydromark open coil clip, and additional biopsy marking clip. Interpreting Radiologist: Terry August M.D. Biochemistry Professor: BISHOP Transcribe Date/Time: Jan 07 2024 9:50A Dictated by : CARLOS OLMEDO, DO This examination was interpreted and the report reviewed and electronically signed by: TERRY AUGUST MD on Jan 07 2024 10:46AM [facility] Radiology Study observation (narrative) [facility] 01-06-2024 CNPN Telephone (PANEHI) ----- SULLY ENRIQUEZ ([id number]) 1990 F Date Time Provider Department 01/06/24 CAMILA RUSSO During your visit today, we recorded the following information about you: Camila Russo PA-C 01/06/2024 2:13 PM Signed Evin Sutton, I saw this patient today for [...] Camila Russo PA-C 01/07/2024 10:55 AM Signed Jackie Sutton MD You14 hours ago (8:38 PM) AC Thank you, should be ok. Jackie Seay MD Allergies As of Date: 01/06/2024 Noted [...] Encounter Status:Closed by CAMILA RUSSO on 01/06/24 [facility] HISTORY PHYSICALon HISTORY PHYSICAL HNO ID: [id number] Author: CAMILA RUSSO PA-C Service: ? Author Type: Physician Military Equipment Specialist Type: H&P Filed: 01/06/2024 14:18 Note Text: [...] surgeon This is a virtual visit using ipDatatel video visit. It required patient-provider interaction for the medical decision making as documented below. REASON FOR VISIT: Sully Enriquez is a 33 year old female who is scheduled for Procedure(s): RIGHT LIV EXCISIONAL BIOPSY (Right) at the request of Dr. Jackie Sutton, Jackie Marcum MD for consultation. My final recommendation will [...] virtual visit. The visit was conducted using ipDatatel video visit. It required patient-provider interaction for the medical decision making as documented below. I have communicated my name and active licensure. The patient's identity and physical location were verified at the time of this visit. Either the patient or their legal provider relations representative has been informed of the risks and benefits of and alternatives to treatment through a remote evaluation and consents to proceed with the evaluation re (more content not included)... [facility]phone ([facility]) ----- ZOESULLY ([id number]) 1990 F Date Time Provider Department 01/02/24 YESSENIA DICKINSON During your visit today, we recorded the following information about you: Yessenia Dickinson PA-C 01/02/2024 11:26 AM Signed This [...] please contact patient to reschedule? Thank you! Yessenia Dickinson PA-C PACC Allergies As of Date: [...] fibroadenoma, right [D24.1] 12/26/2023 Encounter Status:Closed by YESSENIA DICKINSON on 01/02/24 [facility] HISTORY PHYSICALon HISTORY PHYSICAL HNO ID: [id number] Author: YESSENIA DICKINSON PA-C Service: ? Author Type: Physician Military Equipment Specialist Type: H&P Filed: 01/02/2024 11:27 Note Text: [...] to schedulers to please reschedule PACC visit. Yessenia Dickinson PA-C 01/02/2024 [facility] 12-31-2023 [facility] ----- SULLY ENRIQUEZ ([id number]) 1990 F Date Time Provider Department 12/31/[address] [facility] During your visit today, we recorded the following information about you: Candida Camacho APRN.SAS ETL DEVELOPER 12/31/2023 3:06 PM Signed Patient was scheduled for virtual PACC appt at 1500 today. Patient did not check in for visit. Called patient at 1505, stated they forgot and needed to reschedule This message routed to PACC schedulers to contact patient to reschedule PACC appt. Candida Camacho APRN.SAS ETL DEVELOPER Allergies As of Date: 12/31/2023 Noted Allergy [...] fibroadenoma, right [D24.1] 12/26/2023 Encounter Status:Closed by CANDIDA CAMACHO on 12/31/23 Normal [facility] Bacteria [Presence] in Urine by AutomatedOrdered By: Mario Glasgow on 12-26-2023 Bacteria Auto Ql (U) Rare [HPF] None Seen [facility] Bilirubin Test strip Ql (U)O rdered By: Mario Glasgow on 12-26-2023 Bilirubin Ql (U) Negative Negative [facility] CNOVon 12-26-2023 CNOV Office Visit (BRCRMN ) ----- SULLY ENRIQUEZ ([id number]) 1990 F Date Time Provider Department 12/26/23 1:00 PM JACKIE SUTTON During your visit today, we recorded the following information about you: Weight Height 105.2 kg 1.651 m Jackie Sutton MD 12/26/2023 3:52 PM Signed [facility] Department of General Surgery [facility] REASON for TODAY'S VISIT: Patient presents with: New Patient REFERRAL: Referring Provider: Franchesca Man PCP: Keli Strickland NP, RESIDENTIAL SUBSTANCE ABUSE COUNSELOR My clinic note and plan will be [...] - Self palpated RIGHT breast mass. 06/25/23 ([facility]) - diagnostic bilateral mammogram/US - diffuse heterogenous density. In the right breast at 8:00 approximately 4 to 5 cm from the nipple, is a hypoechoic avascular area that measures 2.0 x 1.6 x 1.1 cm. In the right upper outer quadrant of the breast at 2.8 x 1.0 x 2.8 cm lymph node is seen. There is no cortical thickening. 07/07/23 ([facility] - [place] guided CNB 8:00 4-5 CMFN [...] with coil clip placement: Fibroadenoma.Concordant. BREAST AND CASH POSTER RELATED HISTORY: Prior biopsies: as above Prior surgeries: as above Implants: No Contraceptive use: Current: none Past: OCPs in 2011 at age 20 Exogenous hormone use: none Prior radiation: There is no history of Radiation Therapy. 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 Stays [...] Ciprofloxacin U (more content not included)... Normal [facility] CNPNon 12-26-2023 CNPN Telephone (BRMN) ----- SULLY ENRIQUEZ ([id number]) 1990 F Date Time Provider Department 12/26/23 JACKIE SUTTON [facility] During your visit today, we recorded the following information about you: Naresh Wallis 12/26/2023 3:25 PM Signed LOCALIZATION IMAGE REVIEW (Please do NOT submit until entire workup complete) (if > 3 reflectors to be placed in one breast, please review with radiologist) Sully Enriquez [id number] 1990 WORK- UP COMPLETE? Yes Order Placed Yes Right - Site 1 Location 8:00 4-5cm fn Clip Shape Coil Clip Clip Migration No Pathology FibroAdenoma Preferred Localization liv * If clip migrated, please review with radiologist This Form Has Been Completed By Naresh Wallis On Behalf Of Edgard Davila MD 12/29/2023 12:19 PM Signed I have reviewed and approved the localization plan. Images dated 09/08/2023 are annotated. Radiologist: MD Marco Mtz Tishka 01/07/2024 8:53 AM Signed LIV cassandra architect placement by BOTH (coil + unspecified) clips [...] Status:Closed by EDGARD COLE on 12/29/23 Normal [facility] Color of Urine by AutoOrdere d By: Mario Glasgow on 12-26-2023 Color (U) Light-yellow Yellow [facility] Comment on above: Performed By: #### A DDONUAPLUS, CUU #### [facility] [address] [place] [address] [place] Dipstick and Microscopicon 0 12-26-2023 Bacteria,Urine Rare Normal None Seen [facility] Comment on above: Performed By: #### A DDONUAPLUS, CUU #### [facility] [address] [place] [address] [place] Bilirubin,Urine Negative Normal Negative [facility] Comment on above: Performed By: #### A DDONUAPLUS, CUU #### [facility] [address] [place] [address] [place] Budding Yeast,Urine 2+ High None Seen [facility] Comment on above: Result Comment: PERF ORMED BY: [place] [address] PATHOLOGIST PALLIATIVE MEDICINE PHYSICIAN LEV HERNÁNDEZ M.D. Performed By: #### A DDONUAPLUS, CUU #### [address] Glucose Ql (U) Normal Normal Normal [facility] Comment on above: Performed By: #### A DDONUAPLUS, CUU #### [place] [address] [place] Hyaline Casts,Urine None Normal 0-8 [facility] Comment on above: Performed By: #### A DDONUAPLUS, CUU #### [address] Mucus,Urine Rare Normal [facility] Comment on above: Performed By: #### A DDONUAPLUS, CUU #### [address] Nitrite,Urine Negative Normal Negative [facility] Comment on above: Performed By: #### A DDONUAPLUS, CUU #### [address] Occult Blood,Urine 1+ High Negative [facility] Comment on above: Result Comment: PERF ORMED BY: [place] [address] PATHOLOGIST PALLIATIVE MEDICINE PHYSICIAN LEV HERNÁNDEZ M.D. Performed By: #### A DDONUAPLUS, CUU #### [address] Protein,Urine Negative Normal Negative [facility] Comment on above: Performed By: #### A DDONUAPLUS, CUU #### [place] [address] [place] RBC,Urine 10-19 High 0-4 [facility] Comment on above: Performed By: #### A DDONUAPLUS, CUU #### [address] Specificy [place],Urine 1.011 Normal 1.001-1.030 [facility] Comment on above: Performed By: #### A DDONUAPLUS, CUU #### [facility] [address] Squamous Epithelial Cell,Urine 1-2 Normal 0-2 [facility] Comment on above: Performed By: #### A DDONUAPLUS, CUU #### [facility] [address] Urobilinogen,Urine Normal Normal Normal [facility] Comment on above: Performed By: #### A DDONUAPLUS, CUU #### [facility] [address] WBC CLUMP, Urine Many High None Seen [facility] Comment on above: Performed By: #### A DDONUAPLUS, CUU #### [facility] [address] [place] [address] WBC,Urine Innumerable High 0-4 [facility] Comment on above: Performed By: #### A DDONUAPLUS, CUU #### [facility] [address] [place] [address] Epithelial cells.squamous [# /area] in Urine sediment by Automated countOrdered By: Mario Glasgow on 12-26-2023 Epithelial cells.squamous Auto (Urine sed) [#/Area] 1-2 [HPF] 0-2 [facility] Erythrocytes [#/area] in Uri ne sediment by Automated countOrdered By: Mario Glasgow on 12-26-2023 RBC Auto (Urine sed) [#/Area] 10-19 [HPF] High 0-4 [facility] Glucose [Mass/volume] in Uri ne by Test stripOrdered By: Mario Glasgow on 12-26-2023 Glucose Test strip (U) [Mass/Vol] Normal mg/dL Normal [facility] HISTORY PHYSICALon HISTORY PHYSICAL HNO ID: [id number] Author: JACKIE SUTTON MD Service: ? Author Type: Physician Type: H&P Filed: 12/26/2023 15:52 Note Text: [facility] Department of General Surgery [facility] REASON for TODAY'S VISIT: Patient presents with: New Patient REFERRAL: Referring Provider: Franchesca Man PCP: Keli Strickland NP, RESIDENTIAL SUBSTANCE ABUSE COUNSELOR My clinic note and plan will be [...] - Self palpated RIGHT breast mass. 06/25/23 ([facility]) - diagnostic bilateral mammogram/US - diffuse heterogenous density. In the right breast at 8:00 approximately 4 to 5 cm from the nipple, is a hypoechoic avascular area that measures 2.0 x 1.6 x 1.1 cm. In the right upper outer quadrant of the breast at 2.8 x 1.0 x 2.8 cm lymph node is seen. There is no cortical thickening. 07/07/23 ([facility] - US guided CNB 8:00 4-5 CMFN [...] with coil clip placement: Fibroadenoma.Concordant. BREAST AND CASH POSTER RELATED HISTORY: Prior biopsies: as above Prior surgeries: as above Implants: No Contraceptive use: Current: none Past: OCPs in 2011 at age 20 Exogenous hormone use: none Prior radiation: There is no history of Radiation Therapy. 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 Stays [...] HCl (ZANAF (more content not included)... Normal [facility] Hemoglobin Test strip Ql (U) Ordered By: Mario Glasgow on 12-26-2023 Hemoglobin Ql (U) 1+ High Negative [facility] Hyaline casts [#/area] in Ur ine sediment by Automated countOrdered By: Mario Glasgow on 12-26-2023 Hyaline casts Auto (Urine sed) [#/Area] None [LPF] 0-8 [facility] Ketones [Presence] in Urine by Test stripOrdered By: Mario Glasgow on 12-26-2023 Ketones Ql (U) Negative Negative [facility] Comment on above: Performed By: #### A DDONUAPLUS, CUU #### [facility] [address] [place] [address] Laboratory - Chemistry and C hemistry - challengeon 12-26-2023 Bilirubin Ql (U) Negative [facility] Glucose (U) [Mass/Vol] Negative [facility] Ketones Ql (U) Negative [facility] pH (U) 5.5 [pH] [facility] Specific gravity (U) [Rel density] 1.010 [facility] Urobilinogen (U) [Mass/Vol] 0.2 mg/dL [facility] Laboratory - Microbiology an d Antimicrobial susceptibilityOrdered By: Mario Glasgow on 12-26-2023 Bacteria identified Cx Nom (U) Escherichia coli Abnormal [facility] Laboratory - Specimen inform ationon 12-26-2023 Appearance (U) cloudy [facility] Color (U) yellow [facility] Laboratory - Urinalysison Leukocyte esterase Test strip Ql (U) small [facility] Nitrite Ql (U) Negative [facility] Protein Ql (U) Negative [facility] Leukocyte clumps [Presence] in Urine by AutomatedOrdered By: Mario Glasgow on 12-26-2023 Leukocyte clumps Auto Ql (U) Many [LPF] High None Seen [facility] Leukocyte esterase [Presence ] in Urine by Test stripOrdered By: Mario Glasgow on 12-26-2023 Leukocyte esterase Test strip Ql (U) 4+ High Negative [facility] Comment on above: Performed By: #### A SOM MARCUM #### [facility] [address] Leukocytes [#/area] in Urine sediment by Automated countOrdered By: Mario Glasgow on 12-26-2023 WBC Auto (Urine sed) [#/Area] Innumerable [HPF] High 0-4 [facility] Mucus [Presence] in Urine by AutomatedOrdered By: Mario Glasgow on 12-26-2023 Mucus Auto Ql (U) Rare [LPF] [facility] Nitrite Test strip Ql (U)Ord ered By: Mario Glasgow on 12-26-2023 Nitrite Ql (U) Negative Negative [facility] No Panel Informationon 12-25 Urine Occult Blood Negative [facility] Protein Test strip (U) [Mass /Vol]Ordered By: Mario Glasgow on 12-26-2023 Protein (U) [Mass/Vol] Negative Negative [facility] Specific gravity Test strip (U) [Rel density]Ordered By: Mario Pee on 12-26-2023 Specific gravity (U) [Rel density] 1.011 1.001-1.030 [facility] Urine Cultureon 12-26-2023 Bacteria identified Cx Nom (U) ORGANISM: Escherichia coli (O:ESCCOL) [place] Count 75,000 Aerobic AUBREY Charge (NMIC56) SUSCEPTIBILITY [...] RESISTANT TO ALL B-LACTAM DRUGS. PERFORMED BY: [place] [address] PATHOLOGIST PALLIATIVE MEDICINE PHYSICIAN LEV HERNÁNDEZ M.D. Normal [facility] Comment on above: Performed By: #### A JOSSUE, CUU ####[facility] [address] Urine appearanceOrdered By: Mario Glasgow on 12-26-2023 Appearance (U) Cloudy Abnormal Clear [facility] Comment on above: Performed By: #### A JOSSUE, CUU #### [address] Urobilinogen Test strip (U) [Mass/Vol]Ordered By: Mario Glasgow on 12-26-2023 Urobilinogen (U) [Mass/Vol] Normal mg/dL Normal [facility] Yeast.budding [Presence] in Urine by Computer assisted methodOrdered By: Mario Glasgow on 12-26-2023 Yeast.budding Computer assisted Ql (U) 2+ [HPF] High None Seen [facility] pH of Urine by Test stripOrd ered By: Mario Glasgow on 12-26-2023 pH (U) 6.0 [pH] 5.0-9.0 [facility] Comment on above: Performed By: #### A JOSSUE, CUU #### [facility] [address] [place] [id number] [facility] Basophils Auto (Bld) [#/Vol] on 12-17-2023 Basophils (Bld) [#/Vol] 0.0 10 3/uL 0.0-0.1 [facility] Basophils/100 WBC Auto (Bld) on 12-17-2023 Basophils/100 WBC (Bld) 0.4 % 0.2-2.0 [facility] CONSULTon 12-17-2023 CONSULT SUBJECTIVE: Chief complaint: [...] Coordination: Finge (more content not included)... Normal [facility] EDNURSon 12-17-2023 EDNURS Call light, gown, wa rm blanket, pillow and pad provided. Spouse at bedside. Pts back appears mottled, spouse says it is from heating pad. 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 8/10 and sharp. Urinary incontinence started yesterday along with nausea and 2 episodes of vomiting. Pt denies numbness or tingling. Took zanaflex at home which helped her sleep. Had T3 at [place] which helped with the pain. Arrives of 20 g lock in left arm. Pt comes with paperwork and lab results. Pt denies having this pain previously Normal [facility] EDPROVon 12-17-2023 EDPROV HPI Chief Complaint Patient presents with ??? Back Pain X 2 weeks ??? Nausea With vomit x 2. Onset was yesterday. ??? Urinary Incontinence Onset yesterday Pt transferred here by EMS from [facility] accepted by NS Dr Olivas who is on for spine. The concern is for cauda equina. Pt with evaluation for back pain. Pt with evaluation at [place] 1-2 weeks prior. Pt with chiropractor care [...] hx hyst in past. 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 CBC normal. ESR normal [...] osteophytes. Pt didn't have imaging at chiropractor. [place] Coma Scale Score: 15 Patient History Past [...] BP 12/17/23 0240 12/17/23 0240 12/17/23 0238 12/17/230 36.7 ???C (98.1 ???F) 72 16 109/81 [...] of plan of care/testing this am. [CS] [address] Olivas about this consult. He requests an MRI for this pt. I spoke with radiologist Dr Sanchez at [facility] to get approval for MRI to get called in. I spoke with quality control technician to get construction services technician called in for this imaging. [CS] 4036 Pt complaining about pain and nausea. Rn to reconcile meds. Pt with allergy to toradol. Pt with multiple narcotic and antispasm meds on home list. [CS] 6620 PT back from MRI. Pt with norco at home that hasn't taken and has nausea again now. Pt got 4 mg zofran at outside hospital. Will repeat this and then dose norco while waiting on MRI report. [CS] 6144 Pt now wanting to leave AMA. Prelim for MRI in for this pt. I spoke with Dr Olivas about this pt. He asks that I talk with pt about being seen by his PA/RESIDENTIAL SUBSTANCE ABUSE COUNSELOR Jyotsna in about 10 minutes and he is on way to hospital and will review MRI imaging. [CS] 0654 I was back to talk with pt and visitor about my conversation with Dr Olivas. Male reports taht I thought that we were just coming here for the MRI and they were going to read it back in [place] . I explained process of transfer and step up in level of care not only for testing but specialty service. They are deciding if want to stay. I offered po pain meds and pt declined. [CS] [address] Pt signed out to Dr Trevino at change of shift. [CS] ED Course User Index [CS] Prince Hilton MD Diagnoses as of 12/25/23 1039 Acute ex (more content not included)... Normal [facility] Eosinophils/100 WBC Auto (Bl d)on 12-17-2023 Eosinophils/100 WBC (Bld) 1.2 % 0.9-7.0 [facility] Erythrocyte distribution wid th Auto (RBC) [Ratio]on 12-17-2023 Erythrocyte distribution width (RBC) [Ratio] 11.9 % 11.0-15.0 [facility] Estimated glomerular filtrat ion rate (GFR) non- Americanon 12-17-2023 GFR/1.73 sq M.predicted among non-blacks MDRD (S/P/Bld) [Vol rate/Area] mL/min/{1.73_m2} >=60 [facility] Hematocrit Auto (Bld) [Volum e fraction]on 12-17-2023 Hematocrit (Bld) [Volume fraction] 42.3 % 36.0-48.0 [facility] Hemoglobin [Mass/volume] in Bloodon 12-17-2023 Hemoglobin (Bld) [Mass/Vol] 14.4 g/dL 12.0-16.0 [facility] Laboratory - Chemistry and C hemistry - challengeon 12-17-2023 Calcium [Mass/Vol] 8.9 mg/dL 8.5-10.1 [facility] Chloride [Moles/Vol] 103 mmol/L 98-107 [facility] CO2 [Moles/Vol] 26.5 mmol/L 21.0-32.0 [facility] Creatinine [Mass/Vol] 0.94 mg/dL 0.55-1.02 [facility] GFR/1.73 sq M.predicted MDRD (S/P/Bld) [Vol rate/Area] mL/min/{1.73_m2} >=60 [facility] Glucose [Mass/Vol] 95 mg/dL 74-106 [facility] Potassium [Moles/Vol] 3.5 mmol/L 3.5-5.1 [facility] Sodium [Moles/Vol] 139 mmol/L 136-145 [facility] Urea nitrogen [Mass/Vol] 9.0 mg/dL 7.0-18.0 [facility] Urea nitrogen/Creatinine [Mass ratio] 9.6 mg/mg [facility] Laboratory - Hematology and Cell countson 12-17-2023 ESR (Bld) [Velocity] 17 mm/h <=20 [facility] Immature granulocytes/100 WBC (Bld) 0.3 % 0.0-0.5 [facility] Leukocytes [#/volume] correc armaan for nucleated erythrocytes in Blood by Automated counon 12-17-2023 WBC corrected for nucl RBC Auto (Bld) [#/Vol] 6.7 10 3/uL 4.0-11.0 [facility] Lymphocytes Auto (Bld) [#/Vo l]on 12-17-2023 Lymphocytes (Bld) [#/Vol] 2.7 10 3/uL 1.2-3.8 [facility] Lymphocytes/100 WBC Auto (Bl d)on 12-17-2023 Lymphocytes/100 WBC (Bld) 40.7 % 20.5-60.0 [facility] MCH Auto (RBC) [Entitic mass ]on 12-17-2023 MCH (RBC) [Entitic mass] 32.4 pg 26.7-34.0 [facility] MCHC Auto (RBC) [Mass/Vol]on 12-17-2023 MCHC (RBC) [Mass/Vol] 34.0 g/dL 29.9-35.2 [facility] MCV Auto (RBC) [Entitic vol] on 12-17-2023 MCV (RBC) [Entitic vol] 95.3 fL 81.0-99.0 [facility] MR LUMBAR SPINE W AND WO [...] report. Electronically signed: Robert Rivera MD. Normal [facility] Monocytes Auto (Bld) [#/Vol] on 12-17-2023 Monocytes (Bld) [#/Vol] 0.5 10 3/uL 0.3-0.8 [facility] Monocytes/100 WBC Auto (Bld) on 12-17-2023 Monocytes/100 WBC (Bld) 7.2 % 1.7-12.0 [facility] Neutrophils Auto (Bld) [#/Vo l]on 12-17-2023 Neutrophils (Bld) [#/Vol] 3.4 10 3/uL 1.4-6.5 [facility] Neutrophils/100 WBC Auto (Bl d)on 12-17-2023 Neutrophils/100 WBC (Bld) 50.2 % 43.0-75.0 [facility] No Panel Informationon 12-16 C-Reactive Protein, Quantitative <0.50 mg/dL <=0.50 [facility] Eosinophils # (Auto) 0.1 10 3/uL 0.0-0.7 [facility] Immature Granulocyte # (Auto) 0.02 10 3/uL 0.00-0.03 [facility] Platelet mean volume Auto (B ld) [Entitic vol]on 12-17-2023 Platelet mean volume (Bld) [Entitic vol] 10.7 fL 9.5-13.5 [facility] Platelets Auto (Bld) [#/Vol] on 12-17-2023 Platelets (Bld) [#/Vol] 218 10 3/uL 150-450 [facility] RBC Auto (Bld) [#/Vol]on RBC (Bld) [#/Vol] 4.44 10 6/uL 4.20-5.40 [facility] Serum or plasma anion gap de terminationon 12-17-2023 Anion gap [Moles/Vol] 13.0 mmol/L [facility] URINALYSIS WITH REFLEX CULTU REon 12-17-2023 BILIRUBIN, TOTAL PRESENCE IN URINE Negative Normal Negative [facility] Comment on above: Order Comment: Micro scopics not performed on urines with negative chemical reactions unless requested on original order. Performed By: #### L [id number] #### [facility] (AKER) [address] [place] [address] Clarity (U) Slightly Cloudy Abnormal Clear [facility] Comment on above: Order Comment: Micro scopics not performed on urines with negative chemical reactions unless requested on original order. Performed By: #### L [id number] #### [facility] (BEAKER) [address] [place] [address] Color (U) Yellow Normal Yellow [facility] Comment on above: Order Comment: Micro scopics not performed on urines with negative chemical reactions unless requested on original order. Performed By: #### L [id number] #### [facility] (BEAKER) [address] [place] [address] Glucose (U) [Mass/Vol] Negative Normal Negative [facility] Comment on above: Order Comment: Micro scopics not performed on urines with negative chemical reactions unless requested on original order. Performed By: #### L [id number] #### [facility] ([facility]) [address] [place] [address] HEMOGLOBIN PRESENCE IN URINE Negative Normal Negative [facility] Comment on above: Order Comment: Micro scopics not performed on urines with negative chemical reactions unless requested on original order. Performed By: #### L [id number] #### [facility] ([facility]) [address] [place] [address] Ketones Ql (U) Negative Normal Negative [facility] Comment on above: Order Comment: Micro scopics not performed on urines with negative chemical reactions unless requested on original order. Performed By: #### L [id number] #### [facility] ([facility]) [address] [place] [address] LEUKOCYTE ESTERASE PRESENCE IN URINE BY TEST STRIP Negative Normal Negative [facility] Comment on above: Order Comment: Micro scopics not performed on urines with negative chemical reactions unless requested on original order. Performed By: #### L [id number] #### [facility] ([facility]) [address] [place] [address] NITRITE PRESENCE IN URINE Negative Normal Negative [facility] Comment on above: Order Comment: Micro scopics not performed on urines with negative chemical reactions unless requested on original order. Performed By: #### L [id number] #### [facility] ([facility]) [address] [place] [address] pH (U) 5.0 [pH] Normal 5.0-8.0 [facility] Comment on above: Order Comment: Micro scopics not performed on urines with negative chemical reactions unless requested on original order. Performed By: #### L [id number] #### [facility] ([facility]) [address] [place] [address] Protein (U) [Mass/Vol] Negative Normal Negative [facility] Comment on above: Order Comment: Micro scopics not performed on urines with negative chemical reactions unless requested on original order. Performed By: #### L [id number] #### [facility] (BEAKER) [address] [place] [address] Specific gravity (U) [Rel density] 1.016 Normal 1.015-1.020 [facility] Comment on above: Order Comment: Micro scopics not performed on urines with negative chemical reactions unless requested on original order. Performed By: #### L [id number] #### [facility] (BEAKER) [address] [place] [address] CNPMagaly 09-12-2023 CNPN Telephone ([facility]) ----- SULLY ENRIQUEZ ([id number]) 1990 F Date Time Provider Department 09/12/23 FRANCHESCA MAN [facility] During your visit today, we recorded [...] Dense breasts [R92.30] Order(s):CONSULT TO GENERAL SURGERY [8796] Order #: [id number]: 1 FUTURE Prescriptions as of 09/12/2023 - ALPRAZolam (XANAX) 1 mg tablet Take 1 mg by mouth twice daily as needed. Problem List As Of Date 09/12/2023 Noted Resolved Seizure (HCC) [R56.9] 03/06/2021 Headaches [R51.9] 03/07/2021 Encounter Status:Closed by FRANCHESCA MAN on 09/12/23 [facility] 09-11-2023 [facility] ----- SULLY ENRIQUEZ ([id number]) 1990 F Date Time Provider Department 09/11/23 FRANCHESCA MAN [facility] During your visit today, we recorded [...] Encounter Status:Closed by FRANCHESCA MAN on 09/11/23 [facility] Telephone ([facility]) ----- SULLY ENRIQUEZ ([id number]) 1990 F Date Time Provider Department 09/11/23 [...] Status:Closed by LOU MILLER on 09/11/23 Normal [facility] DBT Breast - right diagnosti c for implanton 09-08-2023 * * *Final Report* * * DATE OF EXAM: Sep 08 2023 2:52PM MCW 0629 - SAJI ISAACG W HARVEY RT / PROCEDURE REASON: multiple diagnoses * * * * Physician Interpretation * * * * RESULT: #[id number] - SAJI DIAG W HARVEY RT #[id number] - [facility] US BIOPSY BREAST RT ULTRASOUND [...] Almanzar performed the entire procedure without an assistant secretary. Audible Time Out Time: 1420 Procedure Start [...] for pathological analysis. DIVISION OF RADIOLOGY Provider, [facility] - 09/08/2023 * * *Final Report* * * DATE OF EXAM: Sep 08 2023 2:52PM MCW 0629 - SAJI DIAG W HARVEY RT / PROCEDURE REASON: multiple diagnoses * * * * Physician Interpretation * * * * RESULT: #[id number] - SAJI DIAG W HARVEY RT #[id number] - [facility] US BIOPSY BREAST RT ULTRASOUND [...] Almanzar performed the entire procedure without an assistant secretary. Audible Time Out Time: 1420 Procedure Start [...] obtained using a BARD biopsy device. A Suso open coil clip was inserted into the [...] when these become available. Lea Almanzar M.D., jr/vikas:09/08/2023 16:24:26 Operations Support Analyst(s): RT Mane(Jd)(M), [facility] [place] Multiple national specialty organizations have released breast cancer screening guidelines for women at average risk for developing breast cancer - guidelines that are based on both evidence and opinion, yet differ on when to start and how often to screen for breast cancer. With representation from Breast Imaging, Internal Medicine, Women's Health, Family Medicine, and Medical/Surgical Oncology, the [facility] has carefully reviewed the data and [...] their providers when to stop screening mammograms. Biochemistry Professor: Vikas Transcribe Date/Time: Sep 08 2023 2:52P Dictated by : LEA ALMANZAR MD This examination was interpreted and the report reviewed and electronically signed by: LEA ALMANZAR MD on Sep 08 2023 4:24PM [facility] SAJI DIAG W HARVEY RTon 024 SAJI DIAG W HARVEY RT * * *Final Report* * * * * * SEE BOTTOM OF REPORT FOR ADDENDED TEXT * * * DATE OF EXAM: Sep 08 2023 2:52PM MCW 0629 - SAJI DIAG W HARVEY RT / PROCEDURE REASON: multiple diagnoses * * * * Physician Interpretation * * * * RESULT: FINAL REPORT #[id number] - SAJI DIAG W HARVEY RT #[id number] - [facility] US BIOPSY BREAST RT ULTRASOUND [...] Almanzar performed the entire procedure without an assistant secretary. Audible Time Out Time: 1420 Procedure Start [...] scheduled the surgical consultation. Lea Almanzar M.D., jr/vikas:09/11/2023 14:32:49 Operations Support Analyst(s): RT Mane(R)(M), [facility] [place] Multiple national specialty organizations have released breast cancer screening guidelines for women at average risk for developing breast cancer - guidelines that are based on both evidence and opinion, yet differ on when to start and how often to screen for breast cancer. With representation from Breast Imaging, Internal Medicine, Women's Health, Family Medicine, and Medical/Surgical Oncology, the [facility] has carefully reviewed the data and [...] their providers when to stop screening mammograms. Biochemistry Professor: (more content not included)... Normal [facility] US BIOPSY BREAST RTon [facility] US BIOPSY BREAST RT * * *Final Repor t* * * * * * SEE BOTTOM OF REPORT FOR ADDENDED TEXT * * * DATE OF EXAM: Sep 08 2023 2:52PM W 0598 - [facility] US BIOPSY BREAST RT / PROCEDURE REASON: multiple diagnoses * * * * Physician Interpretation * * * * RESULT: FINAL REPORT #[id number] - [facility] DIAG W HARVEY RT #[id number] - [facility] US BIOPSY BREAST RT ULTRASOUND [...] Almanzar performed the entire procedure without an assistant secretary. Audible Time Out Time: 1420 Procedure Start [...] location, four cores were obtained using a [employer] biopsy device. A Suso open coil clip was inserted into the [...] scheduled the surgical consultation. Lea Almanzar M.D., jr/vikas:09/11/2023 14:32:49 Operations Support Analyst(s): RT Mane(R)(M), [facility] [place] Multiple national specialty organizations have released breast cancer screening guidelines for women at average risk for developing breast cancer - guidelines that are based on both evidence and opinion, yet differ on when to start and how often to screen for breast cancer. With representation from Breast Imaging, Internal Medicine, Women's Health, Family Medicine, and Medical/Surgical Oncology, the [facility] has carefully reviewed the data and [...] mammograms. Transcriptio (more content not included)... Normal [facility] No Panel Informationon 09-07 IMPRESSION: ULTRASOU ND GUIDED BIOPSY Ultrasound guided biopsy of the 2 cm mass in the right breast at 8 o'clock 4 cm from the nipple with placement of a clip was successful with no apparent post procedure complications. Waiting for pathology results. A final report will be issued when these become available. Lea Almanzar M.D., jr/vikas:09/08/2023 16:24:26 Operations Support Analyst(s): RT Mane(R)(M), [facility] Multiple national specialty organizations have released breast cancer screening guidelines for women at average risk for developing breast cancer - guidelines that are based on both evidence and opinion, yet differ on when to start and how often to screen for breast cancer. With representation from Breast Imaging, Internal Medicine, Women's Health, Family Medicine, and Medical/Surgical Oncology, the [facility] has carefully reviewed the data and [...] their providers when to stop screening mammograms. Biochemistry Professor: Vikas Transcribe Date/Time: Sep 08 2023 2:52P Dictated by : LEA ALMANZAR MD This examination was interpreted and the report reviewed and electronically signed by: LEA ALMANZAR MD on Sep 08 2023 4:24PM [facility] DIVISION OF RADIOLOGY Radiology Study observation (narrative) [facility] No Panel InformationOrdered By: Ccf Provider on 09-08-2023 [facility] PT EDon 09-08-2023 PT ED HNO ID: [id number] Author: MARITZA RODNEY RT(R) Service: ? Author [...] MATERIAL: Homegoing instructions REFERRAL (RECOMMENDATION): None Normal [facility] SURGICAL PATHOLOGYon 024 CASE REPORT Normal [facility] Comment on above: Order Comment: Speci men Type: TISSUE SPECIMENOrdering Facility: [facility] Address: [address] [place] [address] Result Comment: Surg ica Pathology Report Case: [id number] Authorizing Provider: Lea Almanzar MD Collected: 09/08/2023 02:04 PM Ordering Location: Mammography Received: 09/08/2023 07:51 PM Pathologist: Pat Silveira MD Specimen: Breast, Right, Core Biopsy, 8:00 4-5cmfn 2cm mass ultrasound biopsy with hydromark open coil clip Performed By: #### S ####[facility]ATORYCLIA [id number] [address] OF [facility] LABCLIA [id number] [address] FINAL DIAGNOSIS Normal [facility] Comment on above: Order Comment: Speci men Type: TISSUE SPECIMENOrdering Facility: [facility] Address: [address] [place] [address] Result Comment: A. R ight breast at 8 o'clock, 4-5 cm from nipple, ultrasound-guided core biopsy with coil clip placement: - Fibroadenoma. Performed By: #### S ####[facility]ORATORYCLIA [id number] [address] LABCLIA [id number] [address] [place] FINAL PERFORMING LAB Normal [facility] Comment on above: Order Comment: Speci men Type: TISSUE SPECIMENOrdering Facility: [facility] Address: [address] [place] [address] Result Comment: Diag nostic interpretation performed at [facility], [address] [place] [address] CLIA# [id number] Manager Government: Columba Villasenor M.D. Performed By: #### S ####[facility] LABORATORYCLIA [id number] [address] LABCLIA [id number] [address] GROSS DESCRIPTION Normal [facility] Comment on above: Order Comment: Speci men Type: TISSUE SPECIMENOrdering Facility: [facility] Address: [address] [place] [address] Result Comment: A. B reast, Right, Core [...] in one cassette. Performed By: #### S ####[facility] LABORATORYCLIA [id number] [address] STATES OF [facility] LABCLIA [id number] [id number] [id number] [place] US Guidance for biopsy of Br edmund fischer 09-08-2023 * * *Final Report* * * DATE OF EXAM: Sep 08 2023 2:52PM MCW 0598 - [facility] US BIOPSY BREAST RT / PROCEDURE REASON: multiple diagnoses * * * * Physician Interpretation * * * * RESULT: #[id number] - [facility] DIAG W HARVEY RT #[id number] - [facility] US BIOPSY BREAST RT ULTRASOUND [...] Almanzar performed the entire procedure without an assistant secretary. Audible Time Out Time: 1420 Procedure Start [...] for pathological analysis. DIVISION OF RADIOLOGY Provider, [facility] - 09/08/2023 * * *Final Report* * * DATE OF EXAM: Sep 08 2023 2:52PM [facility] 0598 - [facility] US BIOPSY BREAST RT / PROCEDURE REASON: multiple diagnoses * * * * Physician Interpretation * * * * RESULT: #[id number] - [facility] DIAG W HARVEY RT #[id number] - [facility] US BIOPSY BREAST RT ULTRASOUND [...] Almanzar performed the entire procedure without an assistant secretary. Audible Time Out Time: 1420 Procedure Start Time: 142 Procedure Stop Time: 1440 RIGHT ultrasound-guided right [...] obtained using a BARD biopsy device. A [employer] open coil clip was inserted into the [...] when these become available. Lea Almanzar M.D., jr/vikas:09/08/2023 16:24:26 Operations Support Analyst(s): RT Mane(Jd)(M), [facility] [place] Multiple national specialty organizations have released breast cancer screening guidelines for women at average risk for developing breast cancer - guidelines that are based on both evidence and opinion, yet differ on when to start and how often to screen for breast cancer. With representation from Breast Imaging, Internal Medicine, Women's Health, Family Medicine, and Medical/Surgical Oncology, the [facility] has carefully reviewed the data and [...] their providers when to stop screening mammograms. Biochemistry Professor: Vikas Transcribe Date/Time: Sep 08 2023 2:52P Dictated by : LEA ALMANZAR MD This examination was interpreted and the report reviewed and electronically signed by: LEA ALMANZAR MD on Sep 08 2023 4:24PM [facility] Laboratory - Chemistry and C hemistry - challengeon 09-02-2023 Free T4 [Mass/Vol] 0.98 ng/dL 0.76-1.46 [facility] TSH Qn 3.388 m[IU]/L 0.358-3.740 [facility] No Panel Informationon 09-01 Free Triiodothyronine 2.79 pg/mL 2.18-3.98 [facility] CNPNon 08-11-2023 CNPN Telephone ([facility]) ----- SULLY ENRIQUEZ ([id number]) 1990 F Date Time Provider Department 08/11/23 FRANCHESCA MAN [facility] During your visit today, we recorded [...] - Unknown Date Reviewed: 08/07/2023 Reviewed by: Jenny Peters MA - Fully Assessed Prescriptions as of 08/11/2023 - ALPRAZolam (XANAX) 1 mg tablet Take 1 mg by mouth twice daily as needed. Problem List As Of Date 08/11/2023 Noted Resolved Seizure (HCC) [R56.9] 03/06/2021 Headaches [R51.9] 03/07/2021 Encounter Status:Closed by FRANCHESCA MAN on 08/11/23 Normal [facility] CNOVon 08-07-2023 CNOV Office Visit (BRCRMN ) ----- SULLY ENRIQUEZ ([id number]) 1990 F Date Time Provider Department 08/07/23 [...] premenopausal woman who presents to the [facility] [place] today for second opinion of right [...] seen for her breast related issues at [facility] with care as follows: 06/25/23: Diagnostic bilateral DBT and [facility] at [facility]): - RIGHT breast 8oclock 4-5cmfn hypoechoic 2cm [...] (232 lb) (more content not included)... Normal [facility] comment.com BREAST SupportBee RTon 08-06 [facility] Collexpo RT * * *Final Report* * * DATE OF EXAM: Aug 07 2023 12:08PM FLASH 0594 - [facility] Collexpo RT / PROCEDURE REASON: multiple diagnoses * * * * Physician Interpretation * * * * RESULT: #[id number] - [facility] Collexpo RT LIMITED ULTRASOUND OF RIGHT BREAST: 08/07/2023 [...] on patient's risk factors for breast cancer. Lizbeth Winston M.D. ns/:08/07/2023 13:24:03 Operations Support Analyst(s): RT Mirtha(R)(M), [facility] BI-RADS: 2 Benign finding Multiple national specialty organizations have released breast cancer screening guidelines for women at average risk for developing breast cancer - guidelines that are based on both evidence and opinion, yet differ on when to start and how often to screen for breast cancer. With representation from Breast Imaging, Internal Medicine, [facility], Family Medicine, and Medical/Surgical Oncology, the [facility] has carefully reviewed the data and [...] their providers when to stop screening mammograms. Biochemistry Professor: Vikas Transcribe Date/Time: Aug 07 2023 11:56A Dictated by : LIZBETH WINSTON MD This examination was interpreted and the report reviewed and electronically signed by: LIZBETH WINSTON MD on Aug 07 2023 1:24PM EST [id number] Normal [facility] US Breast - right limitedon 08-07-2023 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 Patient states that she feels like her provider is not giving her all the information and would like a second opinion. She was seen at [facility] in [place] I will reach out to them to retrieve any information and imaging needed for her appointment 08/07/23 with Franchesca FINNEGAN in the [facility] contact number is [phone]. Jenny Peters MA Allergies As of Date: 07/30/2023 [...] 03/06/2021 Headaches [R51.9] 03/07/2021 Encounter Status:Closed by JENNY PETERS on 07/30/23 Normal [facility] Basophils Auto (Bld) [#/Vol] on 07-25-2023 Basophils (Bld) [#/Vol] 0.0 10 3/uL 0.0-0.1 [facility] Basophils/100 WBC Auto (Bld) on 07-25-2023 Basophils/100 WBC (Bld) 0.3 % 0.2-2.0 [facility] CNPNon 07-25-2023 CNPN Telephone (BRCRBD) ----- SULLY ENRIQUEZ ([id number]) 1990 F Date Time Provider Department 07/25/23 FRANCHESCA MAN BRCRBD During your visit today, we recorded the following information about you: Jenny Peters MA 07/25/2023 12:59 PM Signed Called patient to discuss her upcoming appointment with Franchesca Man in the breast center. I left a message asking patient to call me back @[phone]. Jenny Peters MA Allergies As of Date: 07/25/2023 [...] JUS - Fully Assessed Prescriptions as of 07/25/2023 - ALPRAZolam (XANAX) 1 mg tablet Take 1 mg by mouth twice daily as needed. Problem List As Of Date 07/25/2023 Noted Resolved Seizure (HCC) [R56.9] 03/06/2021 Headaches [R51.9] 03/07/2021 Encounter Status:Closed by JENNY PETERS on 07/25/23 Normal [facility] Eosinophils/100 WBC Auto (Bl d)on 07-25-2023 Eosinophils/100 WBC (Bld) 0.5 % 0.9-7.0 [facility] Erythrocyte distribution wid th Auto (RBC) [Ratio]on 07-25-2023 Erythrocyte distribution width (RBC) [Ratio] 12.0 % 11.0-15.0 [facility] Estimated glomerular filtrat ion rate (GFR) non- Americanon 07-25-2023 GFR/1.73 sq M.predicted among non-blacks MDRD (S/P/Bld) [Vol rate/Area] mL/min/{1.73_m2} >=60 [facility] Globulin Calc (S) [Mass/Vol] on 07-25-2023 Globulin (S) [Mass/Vol] 3.4 g/dL [facility] HCG ( test) IA.rapi d Ql (U)on 07-25-2023 Beta HCG ( test) Ql (U) Negative NEGATIVE [facility] Hematocrit Auto (Bld) [Volum e fraction]on 07-25-2023 Hematocrit (Bld) [Volume fraction] 44.2 % 36.0-48.0 [facility] Hemoglobin [Mass/volume] in Bloodon 07-25-2023 Hemoglobin (Bld) [Mass/Vol] 14.5 g/dL 12.0-16.0 [facility] Laboratory - Chemistry and C hemistry - challengeon 07-25-2023 Albumin [Mass/Vol] 4.0 g/dL 3.4-5.0 [facility] ALP [Catalytic activity/Vol] 61 U/L 46-116 [facility] ALT [Catalytic activity/Vol] 25 U/L 14-59 [facility] AST [Catalytic activity/Vol] 13 U/L 15-37 [facility] Bilirubin [Mass/Vol] 0.6 mg/dL 0.2-1.0 [facility] Calcium [Mass/Vol] 8.8 mg/dL 8.5-10.1 [facility] Chloride [Moles/Vol] 103 mmol/L 98-107 [facility] CO2 [Moles/Vol] 24.0 mmol/L 21.0-32.0 [facility] Creatinine [Mass/Vol] 0.88 mg/dL 0.55-1.02 [facility] GFR/1.73 sq M.predicted MDRD (S/P/Bld) [Vol rate/Area] mL/min/{1.73_m2} >=60 [facility] Glucose [Mass/Vol] 99 mg/dL 74-106 [facility] Lipase [Catalytic activity/Vol] 23.0 U/L 16.0-77.0 [facility] Potassium [Moles/Vol] 3.9 mmol/L 3.5-5.1 [facility] Protein [Mass/Vol] 7.4 g/dL 6.4-8.2 [facility] Sodium [Moles/Vol] 138 mmol/L 136-145 [facility] Urea nitrogen [Mass/Vol] 10.0 mg/dL 7.0-18.0 [facility] Urea nitrogen/Creatinine [Mass ratio] 11.4 mg/mg [facility] Laboratory - Hematology and Cell countson 07-25-2023 Immature granulocytes/100 WBC (Bld) 0.3 % 0.0-0.5 [facility] Laboratory - Microbiology an d Antimicrobial susceptibilityon 07-25-2023 SARS-CoV-2 (COVID-19) RNA AZ+probe Ql (Unsp spec) Negative NEGATIVE [facility] Comment on above: This test [...] [#/Vol] 11.0 10 3/uL 4.0-11.0 [facility] Lymphocytes Auto (Bld) [#/Vo l]on 07-25-2023 Lymphocytes (Bld) [#/Vol] 0.8 10 3/uL 1.2-3.8 [facility] Lymphocytes/100 WBC Auto (Bl d)on 07-25-2023 Lymphocytes/100 WBC (Bld) 7.5 % 20.5-60.0 [facility] MCH Auto (RBC) [Entitic mass ]on 07-25-2023 MCH (RBC) [Entitic mass] 31.6 pg 26.7-34.0 [facility] MCHC Auto (RBC) [Mass/Vol]on 07-25-2023 MCHC (RBC) [Mass/Vol] 32.8 g/dL 29.9-35.2 [facility] MCV Auto (RBC) [Entitic vol] on 07-25-2023 MCV (RBC) [Entitic vol] 96.3 fL 81.0-99.0 [facility] Monocytes Auto (Bld) [#/Vol] on 07-25-2023 Monocytes (Bld) [#/Vol] 0.4 10 3/uL 0.3-0.8 [facility] Monocytes/100 WBC Auto (Bld) on 07-25-2023 Monocytes/100 WBC (Bld) 3.9 % 1.7-12.0 [facility] Neutrophils Auto (Bld) [#/Vo l]on 07-25-2023 Neutrophils (Bld) [#/Vol] 9.7 10 3/uL 1.4-6.5 [facility] Neutrophils/100 WBC Auto (Bl d)on 07-25-2023 Neutrophils/100 WBC (Bld) 87.5 % 43.0-75.0 [facility] No Panel Informationon 07-24 Bedside Influenza Type A Antigen Negative [facility] Comment on above: Negative for Flu A p rotein antigen. Infection due to Flu Acannot be ruled out. Flu A antigen in the sample may bebelow the detection limit of the test. Bedside Influenza Type B Antigen Negative [facility] Comment on above: Negative for Flu B p rotein antigen. Infection due to Flu Bcannot be ruled out. Flu B antigen in the sample may bebelow the detection limit of the test. Eosinophils # (Auto) 0.1 10 3/uL 0.0-0.7 [facility] Immature Granulocyte # (Auto) 0.03 10 3/uL 0.00-0.03 [facility] Platelet mean volume Auto (B ld) [Entitic vol]on 07-25-2023 Platelet mean volume (Bld) [Entitic vol] 10.4 fL 9.5-13.5 [facility] Platelets Auto (Bld) [#/Vol] on 07-25-2023 Platelets (Bld) [#/Vol] 194 10 3/uL 150-450 [facility] RBC Auto (Bld) [#/Vol]on RBC (Bld) [#/Vol] 4.59 10 6/uL 4.20-5.40 [facility] Serum or plasma albumin/glob ulin mass ratioon 07-25-2023 Albumin/Globulin [Mass ratio] 1.2 {ratio} [facility] Serum or plasma anion gap de terminationon 07-25-2023 Anion gap [Moles/Vol] 14.9 mmol/L [facility] Mitchel 07-07-2023 L Specimen: Received: 07/07/23 Status: ALEJANDRA Wong Num: [id number] Spec Type: Surgical Subm Dr: Pablo Lindo II, MD Tissues: A BREAST CORE NO CALCS (RT BREAST TISSUE) Procedures: HE/2, Gross/Micro L4, AE1-AE3, CK5 6 Age/ Patient Sex Location Account Attending Physician Sully Enriquez 33/F WIUL [id number] Lucero Belle DO SPEC NUM: RECD: 07/07/23 [id number] MEGAN: 07/07/[address]: Pablo Lindo II, [...] Time: 0.08 Formalin Fixation Time: 6.62 Specimen: [id number] Received: 07/07/23 Status: ALEJANDRA Wong Num: [id number] Spec Type: Surgical Subm Dr: Pablo Lindo II, MD Tissues: A BREAST CORE NO CALCS (RT BREAST TISSUE) Procedures: HE/2, Gross/Micro L4, AE1-AE3, CK5 6 Patient: Sully Enriquez [id number] (Continued) Specimen: [id number] Received: 07/07/23 (Continued) Signed (signature on file) Mireya Garcia MD 07/09/231648 Specimen: Received: 07/07/23 Status: ALEJANDRA Marvin Num: [id number] Spec Type: Surgical Subm Dr: Pablo Lindo II, MD Tissues: A BREAST CORE NO CALCS (RT BREAST TISSUE) Procedures: HE/2, Gross/Micro L4, AE1-AE3, CK5 6 Patient: ZoeSully M [id number] (Continued) Specimen: Received: 07/07/23 (Continued) CPT Codes 57192 Specimen: Received: 07/07/23 Status: ALEJANDRA Wong Num: [id number] Spec Type: Surgical Subm Dr: Pablo Lindo II, MD Tissues: A BREAST CORE NO CALCS (RT BREAST TISSUE) Procedures: HE/2, Gross/Micro L4, AE1-AE3, CK5 6 Patient: Sully Enriquez [id number] (Continued) Signed (signature on file) Mireya Garcia MD 07/09/23 1649 Normal [facility] US breast ndl core biopsy RT on 07-07-2023 US breast ndl core biopsy RT [facility] [address] [place] [address] Ultrasound Report Signed Patient: Sully Enriquez MR#: [id number] : 1990 Acct:[id number] Age/Sex: 33 / F ADM Date: 07/07/23 Loc: [facility] Room: Type: [facility] Attending Dr: Lucero Belle DO Ordering Provider: Lucero Belle DO Date of Service: 07/07/23 US/US breast ndl core biopsy RT: R92.8 ([id number]) MM/MM post biopsy RT w/CAD: POST U/S [...] of the right breast was performed by clinical lab technologist as well as myself. At the [...] 07/07/23 1155 Signed By: 07/10/23 0836 Normal [facility] Alanine aminotransferase [En zymatic activity/volume] in Serum or PlasmaOrdered By: Bhanu Alvarez on 06-03-2023 ALT [Catalytic activity/Vol] 19 U/L Normal 7-52 [facility] Comment on above: Order Comment: Hemol wilderzed-requested redraw @ 1442. MLG Performed By: #### C MP, PRL, CBC ####[facility] [id number] [place] [address] [facility] Albumin [Mass/volume] in Ser um or Plasma by Bromocresol green (BCG) dye binding methoOrdered By: Bhanu Alvarez on 06-03-2023 Albumin BCG dye [Mass/Vol] 4.6 g/dL 3.5-5.7 [facility] Alkaline phosphatase [Enzyma tic activity/volume] in Serum or PlasmaOrdered By: Bhanu Alvarez on 06-03-2023 ALP [Catalytic activity/Vol] 46 U/L Normal 34-104 [facility] Comment on above: Order Comment: Hemol yzed-requested redraw @ 1442. MLG Performed By: #### C MP, PRL, CBC ####[facility] [id number] Amphetamine Screen Ql (U)Ord ered By: Bhanu Alvarez on 06-03-2023 Amphetamines Ql (U) Negative Negative [facility] Aspartate aminotransferase [ Enzymatic activity/volume] in Serum or PlasmaOrdered By: Bhanu Alvarez on 06-03-2023 AST [Catalytic activity/Vol] 14 U/L Normal 13-39 [facility] Comment on above: Order Comment: Hemol yzed-requested redraw @ [facility]2. MLG Performed By: #### C MP, PRL, CBC ####[address] Automated basophil %Ordered By: Bhanu Alvarez on 06-03-2023 Basophils/100 WBC (Bld) 0.6 % Normal . [facility] Comment on above: Performed By: #### C MP, PRL, CBC ####[address] Automated basophil countOrde red By: Bhanu Alvarez on 06-03-2023 Basophils (Bld) [#/Vol] 0.0 10*3/uL Normal 0.0-0.2 [facility] Comment on above: Result Comment: PERF ORMED BY: [facility] [address] [place] [address] PATHOLOGIST PALLIATIVE MEDICINE PHYSICIAN LEV HERNÁNDEZ M.D. Performed By: #### C MP, PRL, CBC ####[address] Automated blood monocyte cou ntOrdered By: Bhanu Alvarez on 06-03-2023 Monocytes (Bld) [#/Vol] 0.4 10*3/uL Normal 0.0-0.8 [facility] Comment on above: Performed By: #### C MP, PRL, CBC ####[address] Automated eosinophil %Ordere d By: Bhanu Alvarez on 06-03-2023 Eosinophils/100 WBC (Bld) 2.1 % Normal . [facility] Comment on above: Performed By: #### C MP, PRL, CBC ####[facility] [id number] Automated eosinophil countOr dered By: Bhanu Alvarez on 06-03-2023 Eosinophils (Bld) [#/Vol] 0.1 10*3/uL Normal 0.0-0.45 [facility] Comment on above: Performed By: #### C MP, PRL, CBC ####[facility] [id number] [address] Automated monocyte %Ordered By: Bhanu Alvarez on 06-03-2023 Monocytes/100 WBC (Bld) 6.5 % Normal . [facility] Comment on above: Performed By: #### C MP, PRL, CBC ####[facility] Automated neutrophil %Ordere d By: Bhanu Alvarez on 06-03-2023 Neutrophils/100 WBC (Bld) 52.8 % Normal . [facility] Comment on above: Performed By: #### C MP, PRL, CBC ####[facility] [id number] [address] Automated urine color determ inationOrdered By: Bhanu Alvarez on 06-03-2023 Color (U) Yellow Normal Yellow [facility] Comment on above: Order Comment: Name Collection Type:: Clean-Voided Midstream Performed By: #### U A, UHCG, URDS #### [facility] [address] Barbiturates [Presence] in U rine by Screen methodOrdered By: Bhanu Alvarez on 06-03-2023 Barbiturates Screen Ql (U) Negative Negative [facility] Benzodiazepines Screen Ql (U )Ordered By: Bhanu Alvarez on 06-03-2023 Benzodiazepines Ql (U) Positive Negative [facility] Benzoylecgonine [Presence] i n Urine by Screen methodOrdered By: Bhanu Alvarez on 06-03-2023 Benzoylecgonine Screen Ql (U) Negative Negative [facility] Bilirubin Test strip Ql (U)O rdered By: Bhanu Alvarez on 06-03-2023 Bilirubin Ql (U) Negative Negative [facility] Bilirubin.total [Mass/volume ] in Serum or PlasmaOrdered By: Bhanu Alvarez on 06-03-2023 Bilirubin [Mass/Vol] 0.4 mg/dL Normal 0.3-1.0 [facility] Comment on above: Order Comment: Hemol yzed-requested redraw @ 6892. MLG Performed By: #### C MP, PRL, CBC ####[facility] [id number] angio chest PE protocolon 06-03-2023 CT angio chest PE protocol [facility] [place] [address] [place] [address] CT Scan Report Signed Patient: Sully Enriquez MR#: [id number] : 1990 Acct:[id number] Age/Sex: 33 / F ADM Date: 06/03/23 Loc: ER Room: Type: [facility] ER Attending Dr: Copies to: [...] Turner Jr., D.O.06/03/2023 5:48 PM Dictation Location: [place] [address] Transcribed By: [facility] 06/03/231747 Dictated By: Lius Turner Jr, DO 06/03/231746 Signed By: 06/03/231747 Normal [facility] Calcium [Mass/volume] in Ser um or PlasmaOrdered By: Bhanu Alvarez on 06-03-2023 Calcium [Mass/Vol] 9.5 mg/dL Normal 8.6-10.3 [facility] Comment on above: Order Comment: Hemol yzed-requested redraw @ 1442. MLG Performed By: #### C MP, PRL, CBC ####[place] [id number] [place] [id number] [facility] Cannabinoids [Presence] in U rine by Screen methodOrdered By: Bhanu Alvarez on 06-03-2023 Cannabinoids Screen Ql (U) Negative Negative [facility] Comment on above: These are unconfirme d results and should not be used for legal purposes. Drug Cut-Off Concentration: AMPH 1000 ng/mL WILIAN 200 ng/mL LESLY 200 ng/mL COCM 300 ng/mL OP 300 ng/mL PCP 25 ng/mL THC 20 ng/mL Carbon dioxide, total [Moles /volume] in Serum or PlasmaOrdered By: Bhanu Alvarez on 06-03-2023 CO2 [Moles/Vol] 22.4 mmol/L Normal 21.0-31.0 [facility] Comment on above: Order Comment: Hemol yzed-requested redraw @ 1442. MLG Performed By: #### C MP, PRL, CBC ####[facility] [id number] [place] [id number] [facility] Chloride [Moles/volume] in S juan carlos or PlasmaOrdered By: Bhanu Alvarez on 06-03-2023 Chloride [Moles/Vol] 108 mmol/L High 98-107 [facility] Comment on above: Order Comment: Hemol yzed-requested redraw @ 1442. MLG Performed By: #### C MP, PRL, CBC ####[place] [id number] [place] [id number] [facility] Complete Blood Count Auto Di ffon 06-03-2023 Mean Corpuscular HGB Conc 33.9 g/dL Normal 32.0-35.0 [facility] Comment on above: Performed By: #### C MP, PRL, CBC ####[address] Monocytes/100 WBC (Bld) 18.41 % Normal 0.00-20.00 [facility] Comment on above: Performed By: #### C MP, PRL, CBC ####[address] NRBC% 0.0 /100{WBC} Normal 0-0.5 [facility] Comment on above: Performed By: #### C MP, PRL, CBC ####[address] Comprehensive Metabolic Pane mitchel 06-03-2023 Albumin [Mass/Vol] 4.6 g/dL Normal 3.5-5.7 [facility] Comment on above: Order Comment: Hemol yzed-requested redraw @ 1442. MLG Performed By: #### C MP, PRL, CBC ####[address] Creatinine Clr Calc Pharmacy 110.22 Normal [facility] Comment on above: Order Comment: Hemol yzed-requested redraw @ 1442. MLG Performed By: #### C MP, PRL, CBC ####[address] GFR/1.73 sq M.predicted MDRD (S/P/Bld) [Vol rate/Area] mL/min/{1.73_m2} Normal [facility] Comment on above: Order Comment: Hemol yzed-requested redraw @ 1442. MLG Performed By: #### C MP, PRL, CBC ####[address] Creatinine [Mass/volume] in Serum or PlasmaOrdered By: Bhanu Alvarez on 06-03-2023 Creatinine [Mass/Vol] 0.86 mg/dL Normal 0.60-1.20 [facility] Comment on above: Order Comment: Hemol yzed-requested redraw @ 6372. MLG Performed By: #### C MP, PRL, CBC ####[facility] D-Dimer High Sensitivityon 0 06-03-2023 D-Dimer High Sensitivity 282 ng/mL High 0-243 [facility] Comment on above: Result Comment: [...] coagulation studies. Please contact the laboratory at [phone] for redraw instructions. PERFORMED BY: [place] [address] PATHOLOGIST PALLIATIVE MEDICINE PHYSICIAN LEV HERNÁNDEZ M.D. Performed By: #### D DIMER #### [place] [address] [place] Drug Screen,Urineon 06-03-19 24 Amphetamine Screen,Urine Negative Normal Negative [facility] Comment on above: Performed By: #### U A, UHCG, URDS #### [facility] [address] Barbiturate Screen,Urine Negative Normal Negative [facility] Comment on above: Performed By: #### U A, UHCG, URDS #### [address] Benzodiazepines Screen,Urine Positive High Negative [facility] Comment on above: Performed By: #### U A, UHCG, URDS #### [address] Cannabinoid Screen,Urine Negative Normal Negative [facility] Comment on above: Result Comment: Thes e are unconfirmed results and should not be used for legal purposes. Drug Cut-Off Concentration: AMPH 1000 ng/mL WILIAN 200 ng/mL LESLY 200 ng/mL COCM 300 ng/mL OP 300 ng/mL PCP 25 ng/mL THC 20 ng/mL PERFORMED BY: [place] [address] PATHOLOGIST PALLIATIVE MEDICINE PHYSICIAN LEV HERNÁNDEZ M.D. Performed By: #### U A, UHCG, URDS #### [address] Cocaine Screen,Urine Negative Normal Negative [facility] Comment on above: Performed By: #### U A, UHCG, URDS #### [address] Opiate Screen,Urine Negative Normal Negative [facility] Comment on above: Performed By: #### U A, UHCG, URDS #### [address] Phencyclidine Screen,Urine Negative Normal Negative [facility] Comment on above: Performed By: #### U A, UHCG, URDS #### [address] ECG 12 lead ECGon 06-03-2023 ECG 12 lead ECG [facility] [place] [address] [place] [address] Electrocardiograph Report Signed Patient: Sully Enriquez MR#: [id number] : 1990 Acct:[id number] Age/Sex: 33 / F ADM Date: 06/03/23 Loc: ER Room: Type: [facility] ER Attending Dr: Ordering Provider: [...] By Jose Cade DO 1547 Normal [facility] ECG 12 lead ECG [facility] [address] Electrocardiograph Report Signed Patient: Sully Enriquez MR#: [id number] : 1990 Acct:[id number] Age/Sex: 33 / F ADM Date: 06/03/23 Loc: ER Room: Type: [facility] ER Attending Dr: Ordering Provider: [...] By Jose Cade DO 1547 Normal [facility] Erythrocyte distribution wid th [Ratio] by Automated countOrdered By: Bhanu Alvarez on 06-03-2023 Erythrocyte distribution width (RBC) [Ratio] 12.5 % Normal 11.9-15.3 [facility] Comment on above: Performed By: #### C MP, PRL, CBC ####[facility] [id number] [place] [address] [facility] Erythrocytes [#/volume] in B lood by Automated countOrdered By: Bhanu Alvarez on 06-03-2023 RBC (Bld) [#/Vol] 4.42 10*6/uL Normal 3.60-5.00 [facility] Comment on above: Performed By: #### C MP, PRL, CBC ####[facility] [id number] [place] [address] [facility] Fibrin D-dimer [Presence] in Platelet poor plasma by Latex agglutinationOrdered By: Bhanu Alvarez on 06-03-2023 Fibrin D-dimer LA Ql (PPP) 282 ng/mL 0-243 [facility] Comment on above: The reference [...] coagulation studies. Please contact the laboratory at [phone] for redraw instructions. Glucose [Mass/volume] in Ser um or PlasmaOrdered By: Bhanu Alvarez on 06-03-2023 Glucose [Mass/Vol] 102 mg/dL High 70-100 [facility] Comment on above: ADA recommended refe rence rangeRandom Glucose Reference Range is dependent on time and content of last meal. Glucose of more than 200 mg/dL in a nonstressed, ambulatory subject supports the diagnosis of Diabetes Mellitus. Order Comment: Adithya gramajo-requested redraw @ 1442. MLG Result Comment: [place] om Glucose Reference Range is dependent on time and content of last meal. Glucose of more than 200 mg/dL in a nonstressed, ambulatory subject supports the diagnosis of Diabetes Mellitus. ADA recommended reference range Performed By: #### C MP, PRL, CBC ####[facility] HCG ( test) IA.rapi d Ql (U)Ordered By: Bhanu Alvarez on 06-03-2023 HCG ( test) Ql (U) Negative [facility] HCG,Urineon 06-03-2023 Beta HCG ( test) Ql (U) Negative Normal [facility] Comment on above: Order Comment: Name Collection Type:: Clean-Voided Midstream Result Comment: PERF ORMED BY: [facility] [address] [place] [address] PATHOLOGIST PALLIATIVE MEDICINE PHYSICIAN LEV HERNÁNDEZ M.D. Performed By: #### U A, UHCG, URDS #### [address] Hematocrit [Volume Fraction] of Blood by Automated countOrdered By: Bhanu Alvarez on 06-03-2023 Hematocrit (Bld) [Volume fraction] 41.5 % Normal 34.0-46.4 [facility] Comment on above: Performed By: #### C MP, PRL, CBC ####[place] [id number] Hemoglobin [Mass/volume] in BloodOrdered By: Bhanu Alvarez on 06-03-2023 Hemoglobin (Bld) [Mass/Vol] 14.1 g/dL Normal 11.8-15.4 [facility] Comment on above: Performed By: #### C MP, PRL, CBC ####[place] [id number] Ketones Auto test strip (U) [Mass/Vol]Ordered By: Bhanu Alvarez on 06-03-2023 Ketones (U) [Mass/Vol] Negative Negative [facility] Leukocytes [#/volume] correc armaan for nucleated erythrocytes in Blood by Automated counOrdered By: Bhanu Alvarez on 06-03-2023 WBC corrected for nucl RBC Auto (Bld) [#/Vol] 6.8 10*3/uL 3.8-11.6 [facility] Leukocytes [#/volume] in Blo od by Automated countOrdered By: Bhanu Alvarez on 06-03-2023 WBC (Bld) [#/Vol] 6.8 10*3/uL Normal 3.8-11.6 [facility] Comment on above: Performed By: #### C MP, PRL, CBC ####[address] Lymphocytes [#/volume] in Bl ood by Automated countOrdered By: Bhanu Alvarez on 06-03-2023 Lymphocytes (Bld) [#/Vol] 2.6 10*3/uL Normal 1.00-4.8 [facility] Comment on above: Performed By: #### C MP, PRL, CBC ####[address] Lymphocytes/100 leukocytes i n Blood by Automated countOrdered By: Bhanu Alvarez on 06-03-2023 Lymphocytes/100 WBC (Bld) 38.0 % Normal . [facility] Comment on above: Performed By: #### C MP, PRL, CBC ####[address] MCH [Entitic mass] by Automa armaan countOrdered By: Bhanu Alvarez on 06-03-2023 MCH (RBC) [Entitic mass] 31.8 pg Normal 24.7-34.3 [facility] Comment on above: Performed By: #### C MP, PRL, CBC ####[address] MCHC Auto (RBC) [Mass/Vol]Or dered By: Bhanu Alvarez on 06-03-2023 MCHC (RBC) [Mass/Vol] 33.9 g/dL 32.0-35.0 [facility] MCV [Entitic volume] by Auto mated countOrdered By: Bhanu Alvarez on 06-03-2023 MCV (RBC) [Entitic vol] 93.9 fL Normal 80-100 [facility] Comment on above: Performed By: #### C MP, PRL, CBC ####[address] Monocyte distribution width [Entitic volume] in Blood by AutomatedOrdered By: Bhanu Alvarez on 06-03-2023 Monocyte distribution width Auto (Bld) [Entitic vol] 18.41 % 0.00-20.00 [facility] Neutrophils [#/volume] in Bl ood by Automated countOrdered By: Bhanu Alvarez on 06-03-2023 Neutrophils (Bld) [#/Vol] 3.6 10*3/uL Normal 1.8-7.7 [facility] Comment on above: Performed By: #### C MP, PRL, CBC ####[facility] [id number] Nitrite Test strip Ql (U)Ord ered By: Bhanu Alvarez on 06-03-2023 Nitrite Ql (U) Negative Negative [facility] No Panel InformationOrdered By: Bhanu Alvarez on 06-03-2023 Estimated GFR (CKD-EPI) > 60.0 mL/Min [facility] Creatinine Clearance (Chem 110.22 [facility] Nucleated erythrocytes [Pres ence] in Blood by Automated countOrdered By: Bhanu Alvarez on 06-03-2023 Nucleated RBC Auto Ql (Bld) 0.0 /100{WBC} 0-0.5 [facility] Opiates [Presence] in Urine by Screen methodOrdered By: Bhanu Alvarez on 06-03-2023 Opiates Screen Ql (U) Negative Negative [facility] Phencyclidine Screen Ql (U)O rdered By: Bhanu Alvarez on 06-03-2023 Phencyclidine Ql (U) Negative Negative [facility] Platelet mean volume [Entiti c volume] in Blood by Automated countOrdered By: Bhanu Alvarez on 06-03-2023 Platelet mean volume (Bld) [Entitic vol] 9.3 fL Normal 6.3-10.7 [facility] Comment on above: Performed By: #### C MP, PRL, CBC ####[facility] [id number] Platelets [#/volume] in Bloo d by Automated countOrdered By: Bhanu Alvarez on 06-03-2023 Platelets (Bld) [#/Vol] 196 10*3/uL Normal 150-450 [facility] Comment on above: Performed By: #### C MP, PRL, CBC ####[place] [address] [place] [id number] [facility] Potassium [Moles/volume] in Serum or PlasmaOrdered By: Bhanu Alvarez on 06-03-2023 Potassium [Moles/Vol] 3.7 mmol/L Normal 3.5-5.1 [facility] Comment on above: Order Comment: Hemol yzed-requested redraw @ 1442. MLG Performed By: #### C MP, PRL, CBC ####[place] [address] [place] [address] [facility] Prolactinon 06-03-2023 Prolactin 8.46 ng/mL Normal 3.34-26.72 [facility] Comment on above: Order Comment: Hemol yzed-requested redraw @ 1442. MLG Result Comment: PERF ORMED BY: [facility] [address] [place] [id number] PATHOLOGIST PALLIATIVE MEDICINE PHYSICIAN LEV HERNÁNDEZ M.D. Performed By: #### C MP, PRL, CBC ####[place] [id number] [facility] Prolactin [Mass/volume] in S juan carlos or PlasmaOrdered By: Bhanu Alvarez on 06-03-2023 Prolactin [Mass/Vol] 8.46 ng/mL 3.34-26.72 [facility] Protein Auto test strip (U) [Mass/Vol]Ordered By: Bhanu Alvarez on 06-03-2023 Protein (U) [Mass/Vol] Negative Negative [facility] Protein [Mass/volume] in Ser um or PlasmaOrdered By: Bhanu Alvarez on 06-03-2023 Protein [Mass/Vol] 7.5 g/dL Normal 6.4-8.9 [facility] Comment on above: Order Comment: Hemol yzed-requested redraw @ 1442. MLG Performed By: #### C MP, PRL, CBC ####[place] [id number] [facility] Serum globulin measurement b y calculation (mass/volume)Ordered By: Bhanu Alvarez on 06-03-2023 Globulin (S) [Mass/Vol] 2.9 g/dL Normal [facility] Comment on above: Order Comment: Hemol yzed-requested redraw @ 1442. MLG Performed By: #### C MP, PRL, CBC ####[place] [id number] Serum or plasma albumin/glob ulin mass ratioOrdered By: Bhanu Alvarez on 06-03-2023 Albumin/Globulin [Mass ratio] 1.6 {ratio} Normal [facility] Comment on above: Order Comment: Hemol yzed-requested redraw @ 1442. MLG Performed By: #### C MP, PRL, CBC ####[address] Serum or plasma anion gap de terminationOrdered By: Bhanu Alvarez on 06-03-2023 Anion gap [Moles/Vol] 11.3 mmol/L Normal 6.0-15.0 [facility] Comment on above: Order Comment: Hemol yzed-requested redraw @ 1442. MLG Performed By: #### C MP, PRL, CBC ####[address] Sodium [Moles/volume] in Ser um or PlasmaOrdered By: Bhanu Alvarez on 06-03-2023 Sodium [Moles/Vol] 138 mmol/L Normal 136-145 [facility] Comment on above: Order Comment: Hemol yzed-requested redraw @ 1442. MLG Performed By: #### C MP, PRL, CBC ####[address] Specific gravity Auto test s trip (U) [Rel density]Ordered By: Bhanu Alvarez on 06-03-2023 Specific gravity (U) [Rel density] 1.010 1.001-1.030 [facility] Troponin I High Sensitivityo n 06-03-2023 Troponin I High Sensitivity < 2.3 Normal 0.0-15.0 [facility] Comment on above: Result Comment: PERF ORMED BY: [place] [address] PATHOLOGIST PALLIATIVE MEDICINE PHYSICIAN LEV HERNÁNDEZ M.D. Performed By: #### H S TROP ####[facility] [address] [place] [address] Troponin I.cardiac [Mass/vol ume] in Serum or Plasma by Detection limit <= 0.01 ng/Ordered By: Bhanu Alvarez on 06-03-2023 Troponin I.cardiac DL <= 0.01 ng/mL [Mass/Vol] < 2.3 pg/mL 0.0-15.0 [facility] Urea nitrogen [Mass/volume] in Serum or PlasmaOrdered By: Bhanu Alvarez on 06-03-2023 Urea nitrogen [Mass/Vol] 10 mg/dL Normal 7-25 [facility] Comment on above: Order Comment: Hemol yzed-requested redraw @ 1442. MLG Performed By: #### C MP, PRL, CBC ####[facility] [id number] [place] [address] Urinalysison 06-03-2023 Appearance (U) Clear Normal Clear [facility] Comment on above: Order Comment: Name Collection Type:: Clean-Voided Midstream Performed By: #### U A, UHCG, URDS #### [facility] [address] [place] [address] Bilirubin,Urine Negative Normal Negative [facility] Comment on above: Order Comment: Name Collection Type:: Clean-Voided Midstream Performed By: #### U A, UHCG, URDS #### [facility] [address] [place] [address] Glucose Ql (U) Normal Normal Normal [facility] Comment on above: Order Comment: Name Collection Type:: Clean-Voided Midstream Performed By: #### U A, UHCG, URDS #### [facility] [address] [place] [address] Ketones Ql (U) Negative Normal Negative [facility] Comment on above: Order Comment: Name Collection Type:: Clean-Voided Midstream Performed By: #### U A, UHCG, URDS #### [address] Leukocyte esterase Test strip Ql (U) Negative Normal Negative [facility] Comment on above: Order Comment: Name Collection Type:: Clean-Voided Midstream Performed By: #### U A, UHCG, URDS #### [address] Nitrite,Urine Negative Normal Negative [facility] Comment on above: Order Comment: Name Collection Type:: Clean-Voided Midstream Performed By: #### U A, UHCG, URDS #### [address] Occult Blood,Urine Negative Normal Negative [facility] Comment on above: Order Comment: Name Collection Type:: Clean-Voided Midstream Performed By: #### U A, UHCG, URDS #### [address] Protein,Urine Negative Normal Negative [facility] Comment on above: Order Comment: Name Collection Type:: Clean-Voided Midstream Performed By: #### U A, UHCG, URDS #### [address] Specificy [place],Urine 1.010 Normal 1.001-1.030 [facility] Comment on above: Order Comment: Name Collection Type:: Clean-Voided Midstream Performed By: #### U A, UHCG, URDS #### [address] Urobilinogen,Urine Normal Normal Normal [facility] Comment on above: Order Comment: Name Collection Type:: Clean-Voided Midstream Performed By: #### U A, UHCG, URDS #### [address] Urine clarity by refractomet ry automatedOrdered By: Bhanu Alvarez on 06-03-2023 Clarity Refractometry automated (U) Clear Clear [facility] Urine glucose measurement by automated test strip (mass/volume)Ordered By: Bhanu Alvarez on 06-03-2023 Glucose Auto test strip (U) [Mass/Vol] Normal mg/dL Normal [facility] Urine hemoglobin detection b y automated test stripOrdered By: Bhanu Alvarez on 06-03-2023 Hemoglobin Auto test strip Ql (U) Negative Negative [facility] Urine leukocyte esterase det ection by automated test stripOrdered By: Bhanu Alvarez on 06-03-2023 Leukocyte esterase Auto test strip Ql (U) Negative Negative [facility] Urine pH measurement by auto mated test stripOrdered By: Bhanu Alvarez on 06-03-2023 pH (U) 6.5 [pH] Normal 5.0-9.0 [facility] Comment on above: Order Comment: Name Collection Type:: Clean-Voided Midstream Performed By: #### U Billy, UHCG, URDS #### [address] Urobilinogen Auto test strip (U) [Mass/Vol]Ordered By: Bhanu Alvarez on 06-03-2023 Urobilinogen (U) [Mass/Vol] Normal mg/dL Normal [facility] Physician Referralon 023 Physician Referral [id number] [facility] Physician Referralon 023 Physician Referral [id number]:12 7 Normal [facility] RAD - MISCon 12-27-2022 RAD - MISC [id number]#1.00CD:12 7 [facility] ED Note-Physicianon 11-27-19 23 ED Note-Physician [id number]#[id number]:12 7 Normal [facility] ED Note-Physician Basic Information Time Seen: Gaby Turner PA-C 11/22/2022 20:47 Chief Complaint L flank pain worsening x 2 weeks. pt. seen at [facility] x 2 with negative workup. hx kidney stones. also c/o N/V. denies fevers. History of Present Illness This patient presents emergency department chief complaint of left flank pain. The patient states this has been going on for 2 weeks. She has been seen at [facility] twice but they could not determine an [...] Patient has not followed up with a head of english in a long time. I discussed with [...] patient (more content not included)... Normal [facility] Comment on above: Result Comment: Elec [...] R1: This test was performed at: [facility], [address] [place] [address], [facility]- , [place], [facility] Comment on above: Performed By: #### 1 [id number], [id number], [id number] #### [facility] [address] [place] [address] Discharge Instructionson Discharge Instructions [id number]:1 27 Normal [facility] ED Clinical Summaryon 2022 ED Clinical Summary (Inserted Image. Jeniffer ble to display) [address] [address] ED Clinical Summary Person Information Name: SULLY ENRI[place] Age: 32 Years : 1990 Sex: Female Language: Japanese PCP: MARIO GLASGOW DO Marital Status: Visit [...] 11/23/2022 01:20:40 11/23/2022 01:20:40 11/23/2022 01:20:40 ADDRESS: [address] [place] [id number] PHYS DOC NOTES: MEDICAL INFORMATION: Prescriptions Given: New Medications [id number], [address], [place] [id number], [phone] tramadol (traMADOL 50 mg Tab) 1 Tablets By Mouth every 6 hours as needed for pain. Refills: 0. Medications to Continue with No Changes Other Medications acetaminophen-hydrocodone ([place] 5/325 Tab) By Mouth every 6 hours. [...] Endometriosis; Laparoscopic Lysis of Abdominal Adhesions; Adhesions, Zlli-vy-Twea; Abdominal Pain, Adult, Fews-tt-Tjdz Follow up: With: Address: When: MARIO GLASGOW [address] [place] [phone] Business (1) In 3 days 11/26/2022 DIAGNOSIS: 1:Chronic left flank pain; 2:Abdominal pain, acute, left upper quadrant; Other chronic pain Normal [facility] ED Patient Education Noteon 11-23-2022 ED [...] including vitamins, herbs, eye drops, creams, and qmcu-cew-uzvpcoi medicines. ? Any problems you or family [...] tells you to take them. ? Taking jjhu-rnw-mztrmmu medicines, vitamins, herbs, and supplements. General instructions [...] Aft (more content not included)... Normal [facility] ED Patient Summaryon 023 ED Patient Summary (Inserted Image. Jeniffer ble to display) [place] [id number] Patient Discharge Instructions Person Information Name: SULLY ENRIQUEZ Age: 32 Years Arrival Date: 11/22/2022 19:01:04 Discharge Diagnosis: 1:Chronic left flank pain; 2:Abdominal pain, acute, left upper quadrant; Other chronic pain Primary Care Physician: MARIO GLASGOW DO Provider Information Primary Provider: Sonam Montoya DO Advanced Manager Flight Operations:None The exam and treatment you received in the Emergency Department were for an urgent problem and are not intended as complete care. It is important that you follow up with a doctor, nurse practitioner, or physician?s assistant secretary for ongoing care. If your symptoms become worse or you do not improve as expected and you are unable to reach your usual health care provider, you should return to the Emergency Department. We are available 24 hours a day. SULLY ENRIQUEZ has been given the following list of patient education materials, prescriptions and follow-up instructions: Follow-up Instructions: With: Address: When: MARIO GLASGOW [address] [place] [address] [place], [place] [phone] Business (1) In 3 days 11/26/2022 In the event that this physician does not participate in your insurance network, please consult with your insurance company to find a nearby participating provider. Patient Education Materials: Endometriosis; Laparoscopic Lysis of Abdominal Adhesions; Adhesions, Igiq-ip-Zvsa; Abdominal Pain, Adult, Frct-bm-Ctog A MESSAGE TO ALL PATIENTS REGARDING OPIOIDS PRESCRIPTION OPIOIDS: WHAT YOU NEED TO KNOW Prescription opioids can be used to help relieve ctdvlmru-sr-smtgqx pain and are often prescribed following a [...] wit (more content not included)... Normal [facility] XR Abdomen 1 Viewon 11-24-19 23 XR Abdomen 1 View Exam Date/Time: 11/22/2022 [...] = na DAP = na Normal [facility] Auto Diffon 11-22-2022 Basophils/100 WBC (Bld) 0.6 % Normal 0.0-2.0 [facility] Comment on above: Order Comment: Order Added by Discern Expert. Performed By: #### 2 208631, 7047267, 0896615, 74200085, 5588901, 6625072 #### [facility] [address] [place] [address] Basophils/Leukocytes Auto (Bld) [Pure # fraction] 0.0 E9/L Normal 0.0-0.2 [facility] Comment on above: Order Comment: Order Added by Discern Expert. Performed By: #### 2 501736, 6769800, 1783975, 95730083, 9860669, 5810869 #### [facility] [address] [place] [address] Eosinophils/100 WBC (Bld) 1.5 % Normal 0.0-8.0 [facility] Comment on above: Order Comment: Order Added by Discern Expert. Performed By: #### 2 231445, 9067117, 8537094, 44615417, 2252455, 6050511 #### [facility] [address] [place] [address] Eosinophils/Leukocytes Auto (Bld) [Pure # fraction] 0.1 E9/L Normal 0.0-0.5 [facility] Comment on above: Order Comment: Order Added by Discern Expert. Performed By: #### 2 858520, 8044300, 2142797, 09605728, 3278760, 9957910 #### [facility] [address] [place] [address] Lymphocytes/100 WBC (Bld) 33.5 % Normal 14.0-50.0 [facility] Comment on above: Order Comment: Order Added by Discern Expert. Performed By: #### 2 877222, 7203852, 4969233, 14658927, 7997296, 0258428 #### [facility] [address] [place] [address] Lymphocytes/Leukocytes Auto (Bld) [Pure # fraction] 2.6 E9/L Normal 1.0-4.0 [facility] Comment on above: Order Comment: Order Added by Discern Expert. Performed By: #### 2 434355, 9162541, 5325258, 71425757, 9014109, 2745500 #### [facility] [address] [place] [address] Monocytes/100 WBC (Bld) 8.6 % Normal 4.0-14.0 [facility] Comment on above: Order Comment: Order Added by Discern Expert. Performed By: #### 2 195284, 5551387, 7489279, 93343280, 7928807, 9257700 #### [facility] [address] [place] [address] Monocytes/Leukocytes Auto (Bld) [Pure # fraction] 0.7 E9/L Normal 0.2-1.0 [facility] Comment on above: Order Comment: Order Added by Discern Expert. Performed By: #### 2 334376, 4169142, 1962046, 12684850, 8531305, 3277216 #### [facility] [address] [place] [address] Neutrophils/100 WBC (Bld) 55.8 % Normal 36.0-75.0 [facility] Comment on above: Order Comment: Order Added by Discern Expert. Performed By: #### 2 919336, 1734790, 1700383, 15204805, 6719087, 9460933 #### [facility] [address] [place] [address] Neutrophils/Leukocytes Auto (Bld) [Pure # fraction] 4.3 E9/L Normal 2.0-7.5 [facility] Comment on above: Order Comment: Order Added by Discern Expert. Performed By: #### 2 426242, 8593331, 7050157, 41415082, 1953966, 1377377 #### [facility] [address] [place] [address] BMPon 11-22-2022 Creatinine [Mass/Vol] 1.0 mg/dL Normal 0.5-1.3 [facility] Comment on above: Performed By: #### 2 085276, 2980044, 3435258, 18160901, 6470581, 3689821 #### [facility] [address] [place] [address] Urea nitrogen [Mass/Vol] 16 mg/dL Normal 5-21 [facility] Comment on above: Performed By: #### 2 113820, 3169633, 0273549, 31116323, 2305548, 7137507 #### [facility] [address] [place] [address] Urea nitrogen/Creatinine [Mass ratio] 16 No Units Normal 10-20 [facility] Comment on above: Performed By: #### 2 382760, 8976640, 2465327, 09004731, 6520981, 3513379 #### [facility] [address] [place] [address] Anion gap [Moles/Vol] 15 mmol/L Normal 6-16 [facility] Comment on above: Performed By: #### 2 951337, 3123033, 5284192, 26282029, 9750067, 9901066 #### [facility] [address] [place] [address] Calcium [Mass/Vol] 9.6 mg/dL Normal 8.9-11.1 [facility] Comment on above: Performed By: #### 2 817436, 8237728, 4627494, 32265039, 9073464, 8905398 #### [facility] [address] [place] [address] Chloride [Moles/Vol] 107 mmol/L Normal 101-111 [facility] Comment on above: Performed By: #### 2 624762, 6079911, 4917559, 60029131, 6602890, 5569237 #### [facility] [address] [place] [address] CO2 [Moles/Vol] 19 mmol/L Low 21-31 [facility] Comment on above: Performed By: #### 2 332481, 1386580, 1702614, 33469693, 3691252, 9028049 #### [facility] [address] [place] [address] Glucose [Mass/Vol] 97 mg/dL Normal 55-199 [facility] Comment on above: Result Comment: If t his glucose result represents a fasting glucose, interpretation should refer to the following reference range: 55-99 mg/dL Performed By: #### 2 029505, 3662040, 4206127, 16227634, 1896344, 2700849 #### [facility] [address] [place] [address] Potassium [Moles/Vol] 3.9 mmol/L Normal 3.5-5.3 [facility] Comment on above: Performed By: #### 2 339875, 7598484, 8055233, 08232432, 0262262, 9054715 #### [facility] [address] [place] [address] Sodium [Moles/Vol] 137 mmol/L Normal 135-145 [facility] Comment on above: Performed By: #### 2 468510, 1300016, 2811802, 62780949, 1013824, 1421829 #### [facility] [address] [place] [address] CBC w/ Auto Diffon 3 Erythrocyte distribution width (RBC) [Ratio] 13.0 % Normal 10.9-14.2 [facility] Comment on above: Performed By: #### 2 230506, 1279543, 1948327, 00405265, 8447833, 8593139 #### [facility] [address] [place] [address] Hematocrit (Bld) [Volume fraction] 42.7 % Normal 34.0-46.0 [facility] Comment on above: Performed By: #### 2 654038, 6041624, 2078001, 87652954, 9720327, 8612941 #### [facility] [address] [place] [address] Hemoglobin (Bld) [Mass/Vol] 14.6 g/dL Normal 12.0-16.0 [facility] Comment on above: Performed By: #### 2 324134, 7246555, 6487507, 17714361, 4398864, 7988379 #### [facility] [address] [place] [address] MCH (RBC) [Entitic mass] 31.7 pg Normal 27.0-34.0 [facility] Comment on above: Performed By: #### 2 359565, 5745995, 1329444, 75833813, 6094923, 8771534 #### [facility] [address] [place] [address] MCHC (RBC) [Mass/Vol] 34.1 g/dL Normal 31.4-36.0 [facility] Comment on above: Performed By: #### 2 591196, 4735563, 2837801, 07553440, 0005607, 1295244 #### [facility] [address] [place] [address] MCV (RBC) [Entitic vol] 93.1 fL Normal 80.0-100.0 [facility] Comment on above: Performed By: #### 2 200470, 9659819, 6026254, 54703045, 7094817, 7432806 #### [facility] [address] [place] [address] Platelet mean volume (Bld) [Entitic vol] 8.8 fL Normal 6.4-10.8 [facility] Comment on above: Performed By: #### 2 190504, 7214733, 0988773, 83781312, 7319445, 5381049 #### [facility] [address] [place] [address] Platelets (Bld) [#/Vol] 199.0 E9/L Normal 150.0-500.0 [facility] Comment on above: Performed By: #### 2 274856, 9161582, 3652864, 40210635, 8405571, 6975341 #### [facility] [address] [place] [address] RBC (Bld) [#/Vol] 4.6 E12/L Normal 4.3-5.9 [facility] Comment on above: Performed By: #### 2 749668, 5848796, 8129086, 31635919, 6097136, 8700170 #### [facility] [address] [place] [address] WBC corrected for nucl RBC Auto (Bld) [#/Vol] 7.7 E9/L Normal 4.0-11.0 [facility] Comment on above: Performed By: #### 2 648516, 0456426, 1411248, 22197995, 3088011, 7156327 #### [facility] [address] [place] [address] CHEMISTRYOrdered By: SYSTEM SYSTEM on 11-22-2022 Albumin [...] 76 mL/min/1.73 m2 Normal >=59mL/min/ 1.73 m2 [facility] S Globulin (S) [Mass/Vol] 3.4 g/dL [...] 137 mmol/L Normal 135 - 145 mmol/L [facility] Urea nitrogen [Mass/Vol] 16 mg/dL Normal 5 - 21 mg/dL [facility] Remisol Urea nitrogen/Creatinine [Mass ratio] 16 mg/mg Normal 10 - 20 [facility] Remisol Consent for Treatmenton Consent for Treatment [id number]:12 7 Normal [facility] HEMATOLOGYOrdered By: SYSTEM SYSTEM on 11-22-2022 Basophils/100 WBC (Bld) 0.6 % Normal 0.0 - 2.0 % [facility] HemeAutoSS Basophils/Leukocytes Auto (Bld) [Pure # fraction] [...] E9/L Normal 150. 0 - 500.0 E9/L [facility] HemeAuto[facility] RBC (Bld) [#/Vol] 4.6 E12/L Normal 4.3 - 5.9 E12/L [facility] HemeAutoSS WBC corrected for nucl RBC Auto (Bld) [#/Vol] 7.7 E9/L Normal 4.0 - 11.0 E9[place]L [facility] HemeAutoSS Hep Func Panelon 11-22-2022 Bilirubin.indirect [Mass or moles/Vol] UTC Abnormal 0.1-0.9 [facility] Comment on above: Result Comment: Resu lt verified by Discern Rule. Performed result UTC (Unable to Calculate) was sent as an Alpha code due the inability to calculate a valid numeric value. Performed By: #### 2 [id number], 3193542, 8042252, 65852858, 0932440, 2129221 #### [facility] [address] [place] [address] Albumin [Mass/Vol] 4.5 g/dL Normal 3.3-5.0 [facility] Comment on above: Performed By: #### 2 828604, 9182619, 7618396, 20677630, 4776656, 4537542 #### [facility] [address] [place] [address] Albumin/Globulin (S) [Mass conc ratio] 1.3 Normal 1.1-2.2 [facility] Comment on above: Performed By: #### 2 329268, 6523138, 5336440, 29420240, 8704501, 1246426 #### [facility] [address] [place] [address] ALP [Catalytic activity/Vol] 42 Int._Unit/L Normal 21-98 [facility] Comment on above: Performed By: #### 2 784596, 2512819, 1070990, 57622436, 5098026, 9164189 #### [facility] [address] [place] [address] ALT No additional P-5'-P [Catalytic activity/Vol] 36 Int._Unit/L Normal 6-46 [facility] Comment on above: Performed By: #### 2 828983, 0000464, 9690395, 13312173, 2793007, 2385281 #### [facility] [address] [place] [address] AST [Catalytic activity/Vol] 26 Int._Unit/L Normal 5-43 [facility] Comment on above: Performed By: #### 2 401438, 2965290, 8086998, 86761494, 0896322, 7384741 #### [facility] [address] [place] [address] Bilirubin [Mass/Vol] 0.6 mg/dL Normal 0.0-1.[address] [facility] Comment on above: Performed By: #### 2 955894, 3727127, 5277202, 35847100, 6250684, 3978984 #### [facility] [address] [place] [address] Globulin (S) [Mass/Vol] 3.4 g/dL Normal 1.4-4.0 [facility] Comment on above: Performed By: #### 2 049540, 7755617, 9200839, 23932890, 4585158, 7332729 #### [facility] [address] [place] [address] Protein [Mass/Vol] 7.9 g/dL High 6.0-7.8 [facility] Comment on above: Performed By: #### 2 746474, 1932535, 5524995, 23471939, 7089257, 2446118 #### [facility] [address] [place] [address] Bilirubin.direct [Mass/Vol] mg/dL Normal 0.1-0.4 [facility] Comment on above: Performed By: #### 2 482867, 2515322, 0970844, 82768448, 2969300, 4177469 #### [facility] [address] [place] [address] Laboratory - Microbiology an d Antimicrobial susceptibilityOrdered By: Sherice Espinosa on 11-22-2022 Bacteria identified Cx Nom (U) 500 cfu/ml Mixed skin contaminants [facility] Lipase Levelon 11-22-2022 Lipase [Catalytic activity/Vol] 28 U/L Normal 13-58 [facility] Comment on above: Performed By: #### 2 931869, 1321445, 2672871, 74380877, 8285523, 4228227 #### [facility] [address] [place] [address] SEROLOGYOrdered By: Mario For ster on 11-22-2022 HCG.beta subunit (U) [Moles/Vol] Negative Normal [facility] Man Sero U BetaHcg Qualon 11-22-2022 HCG.beta subunit (U) [Moles/Vol] Negative Normal [facility] Comment on above: Performed By: #### 1 5261756, 7008890, 78993254 #### [facility] [address] [place] [address] UA With Cult Reflexon 2022 Bacteria LM Ql (Urine sed) 2+ /HPF Abnormal Trace [facility] Comment on above: Performed By: #### 1 7274762, 8258264, 95944494 #### [facility] [address] [place] [address] Bilirubin Ql (U) Negative Normal Negative [facility] Comment on above: Performed By: #### 1 5267647, 4059368, 56442388 #### [facility] [address] [place] [address] Clarity (U) CLEAR Normal Clear [facility] Comment on above: Performed By: #### 1 8618134, 1817540, 68369783 #### [facility] [address] [place] [address] Color (U) YELLOW Normal Yellow [facility] Comment on above: Performed By: #### 1 3942630, 4746914, 04327659 #### [facility] [address] [place] [address] Epithelial cells.squamous LM.HPF (Urine sed) [#/Area] 5-8 Normal 0-2 [facility] Comment on above: Performed By: #### 1 7131751, 6426895, 61014478 #### [facility] [address] [place] [address] Glucose Test strip (U) [Mass/Vol] Negative Normal Negative [facility] Comment on above: Performed By: #### 1 3207216, 6258358, 71802177 #### [facility] [address] [place] [address] Hemoglobin Ql (U) Negative Normal Negative [facility] Comment on above: Performed By: #### 1 0022868, 6017376, 00565516 #### [facility] [address] [place] [address] Ketones (U) [Mass/Vol] Negative Normal Negative [facility] Comment on above: Performed By: #### 1 3605516, 0378809, 47666028 #### [facility] [address] [place] [address] [place].plasma/[place]. RBC (Bld) [Mass ratio] 0-3 Normal 0-3 [facility] Comment on above: Performed By: #### 1 5024941, 3141870, 23753056 #### [facility] [address] [place] [address] Mucus Ql (Urine sed) TRACE Normal [facility] Comment on above: Performed By: #### 1 2908827, 1367840, 93062844 #### [facility] [address] [place] [address] Nitrite Ql (U) Negative Normal Negative [facility] Comment on above: Performed By: #### 1 9613263, 1494321, 21506100 #### [facility] [address] [place] [address] pH (U) 6.0 [pH] Invalid Interpretation Code 5.0-9.0 [facility] Comment on above: Performed By: #### 1 2655804, 6021442, 23316373 #### [facility] [address] [place] [address] Protein (U) [Mass/Vol] Negative Normal Negative [facility] Comment on above: Performed By: #### 1 3206124, 9226034, 68085562 #### [facility] [address] [place] [address] Specific gravity (U) [Rel density] 1.025 Invalid Interpretation Code 1.005-1.030 [facility] Comment on above: Performed By: #### 1 6855482, 6493636, 97633166 #### [facility] [address] [place] [address] Type of Urine collection method Clean Catch Normal [facility] Comment on above: Performed By: #### 1 0716054, 2255499, 99553117 #### [facility] [address] [place] [address] Urobilinogen Qn (U) 0.2 {Elba'U}/dL Normal 0.0-1.0 [facility] Comment on above: Performed By: #### 1 9317425, 7334975, 40739279 #### [facility] [address] [place] [address] WBC Auto Ql (U) Negative Normal Negative [facility] Comment on above: Performed By: #### 1 5284194, 1776941, 18459266 #### [facility] [address] [place] [address] WBC LM.HPF (Urine sed) [#/Area] 0-5 Normal 0-5 [facility] Comment on above: Performed By: #### 1 8854607, 1620278, 31964856 #### [facility] [address] [place] [address] URINALYSISOrdered By: Mario howell on 11-22-2022 Bacteria LM Ql (Urine sed) 2+ /HPF Invalid Interpretation Code Trace/HPF [facility] UA Auto SS Bilirubin Ql (U) Negative (11/22/22 7:19 PM) Normal Negative [facility] UA Auto SS Clarity (U) Clear (11/22/22 [...] PM) Normal Negative [facility] UA Auto SS [place].plasma/[place]. RBC (Bld) [Mass ratio] 0-3 /HPF Normal [...] Desc Clean Catch (11/22/22 7:19 PM) Normal [facility] UA Auto SS Urobilinogen Qn (U) 0.5800899 {Elba'U}/dL Normal 0.0 - 1.0 EU/dL [facility] UA Auto SS WBC Auto Ql (U) Negative (11/22/22 7:19 PM) Normal Negative [facility] UA Auto SS WBC LM.HPF (Urine sed) [#/Area] 0-5 /HPF Normal 0-5/HPF [facility] UA Auto SS eGFRon 11-22-2022 GFR/1.73 sq M.predicted among non-blacks MDRD (S/P/Bld) [Vol rate/Area] 76 mL/min/1.73 m2 Normal >=59 [facility] Comment on above: Order Comment: Order added by Discern Expert. Result Comment: Railway [employer] fahad kidney disease could be indicated at eGFR's of less than 60 mL/min/1.73m2. Kidney failure is indicated at less than 15 mL/min/1.73m2. Performed By: #### 2 675647, 9108890, 9393685, 58387328, 3083595, 0384928 #### [facility] [address] [place] [address] [place] HEAD WO CONon 08-14-2022 CT HEAD [...] by: ROC ARNOLD Date: 2022-08-13 22:12 Normal [facility] CBC AUTO DIFFon 08-13-2022 BASO # 0.0 103/ul Normal 0.0-0.1 [facility] Comment on above: Performed By: #### C BC ####[facility] [address] [place] [id number]. Douglas Tucker Basophils/100 WBC (Bld) 0.3 % Normal 0.2-2.0 [facility] Comment on above: Performed By: #### C BC ####[facility] [address] [place] [address]Dr. Douglas Tucker EO # 0.0 103/ul Normal 0.0-0.7 [facility] Comment on above: Performed By: #### C BC ####[facility] [address] [place] [address]Dr. Douglas Tucker Eosinophils/100 WBC (Bld) 0.1 % Critically low 0.9-7.0 [facility] Comment on above: Performed By: #### C BC ####[facility] [address] [place], [place] [address]Dr. Douglas Tucker Erythrocyte distribution width (RBC) [Ratio] 12.3 % Normal 11.0-15.0 [facility] Comment on above: Performed By: #### C BC ####[facility] [address] [place], [place] [address]Dr. Douglas Tucker Hematocrit (Bld) [Volume fraction] 41.6 % Normal 36.0-48.0 [facility] Comment on above: Performed By: #### C BC ####[facility] [address] [place], [place] [address]Dr. Douglas Tucker Hemoglobin (Bld) [Mass/Vol] 13.6 g/dL Normal 12.0-16.0 [facility] Comment on above: Performed By: #### C BC ####[facility] [address] [place], [place] [address]Dr. Douglas Tucker IG # 0.05 10e3/ul Critically high 0.00-0.03 [facility] Comment on above: Performed By: #### C BC ####[facility] [address] [place], [place] [address]Dr. Douglas Tucker IG % 0.3 % Normal 0.0-0.5 [facility] Comment on above: Performed By: #### C BC ####[facility] [address] [place], [place] [address]Dr. Douglas Tucker LYMPH # 3.0 103/ul Normal 1.2-3.8 [facility] Comment on above: Performed By: #### C BC ####[facility] [address] [place], [place] [address]Dr. Douglas Tucker Lymphocytes/100 WBC (Bld) 20.9 % Normal 20.5-60.0 [facility] Comment on above: Performed By: #### C BC ####[facility] [address] [place] [address]Dr. Douglas Tucker MANUAL DIFF REQ NO Normal [facility] Comment on above: Performed By: #### C BC ####[facility] [address] [place] [address]Dr. Douglas Tucker MCH (RBC) [Entitic mass] 31.7 pg Normal 26.7-34.0 [facility] Comment on above: Performed By: #### C BC ####[facility] [address] [place] [address]Dr. Douglas Tucker MCHC (RBC) [Mass/Vol] 32.7 g/dL Normal 29.9-35.2 [facility] Comment on above: Performed By: #### C BC ####[facility] [address] [place] [address]Dr. Douglas Tucker MCV (RBC) [Entitic vol] 97.0 fL Normal 81.0-99.0 [facility] Comment on above: Performed By: #### C BC ####[facility] [address] [place], [place] [address]Dr. Douglas Tucker MONO # 1.0 103/ul Critically high 0.3-0.8 [facility] Comment on above: Performed By: #### C BC ####[facility] [address] [place], [place] [address]Dr. Douglas Tucker Monocytes/100 WBC (Bld) 7.2 % Normal 1.7-12.0 [facility] Comment on above: Performed By: #### C BC ####[facility] [address] [place] [address]DrHernandez Tucker NEUT # 10.2 103/ul Critically high 1.4-6.5 [facility] Comment on above: Performed By: #### C BC ####[facility] [address] [place], [place] [address]DrHernandez Tucker Neutrophils/100 WBC (Bld) 71.2 % Normal 43.0-75.0 [facility] Comment on above: Performed By: #### C BC ####[facility] [address] [place] [id number] Tucker Platelet mean volume (Bld) [Entitic vol] 10.6 fL Normal 9.5-13.5 [facility] Comment on above: Performed By: #### C BC ####[facility] [address] [place] [address]DrHernandez Tucker PLT 229 103/ul Normal 150-450 [facility] Comment on above: Performed By: #### C BC ####[facility] [address] [place] [address]DrHernandez Tucker RBC 4.29 106/ul Normal 4.20-5.40 [facility] Comment on above: Performed By: #### C BC ####[facility] [address] [place] [address]DrHernandez Tucker WBC 14.4 103/ul Critically high 4.0-11.0 [facility] Comment on above: Performed By: #### C BC ####[facility] [address] [place] [address]Dr. Douglas Tucker PROF CHEM 8 (BAS METB)on Anion gap [Moles/Vol] 14.6 mmol/L Normal [facility] Comment on above: Performed By: #### T ZAIDA, BMP #### [facility] [address] [place] [address] [address] Douglas Tucker Calcium [Mass/Vol] 9.0 mg/dL Normal 8.5-10.1 [facility] Comment on above: Performed By: #### T ZAIDA, BMP #### [facility] [address] [place] [address] [address] Douglas Tucker Chloride [Moles/Vol] 107 mmol/L Normal 98-107 [facility] Comment on above: Performed By: #### T ZAIDA, BMP #### [facility] [address] [place] [address] [address] Douglas Tucker CO2 [Moles/Vol] 23.2 mmol/L Normal 21.0-32.0 [facility] Comment on above: Performed By: #### T SH, BMP #### [facility] [address] [place] [address] [address] Douglas Tucker Creatinine [Mass/Vol] 0.88 mg/dL Normal 0.55-1.02 [facility] Comment on above: Performed By: #### T SH, BMP #### [facility] [address] [place] [address] [address] Douglas Tucker EGFR-AF IVORIAN >60 Normal >=60 [facility] Comment on above: Performed By: #### T SH, BMP #### [facility] [address] [place] [address] [address] Douglas Tucker EGFR-NON AF IVORIAN >60 Normal >=60 [facility] Comment on above: Performed By: #### T SH, BMP #### [facility] [address] [place] [address] Dr. Douglas Tucker Glucose [Mass/Vol] 100 mg/dL Normal 74-106 [facility] Comment on above: Performed By: #### T SH, BMP #### [facility] [address] [place] [address] Dr. Douglas Tucker Potassium [Moles/Vol] 3.8 mmol/L Normal 3.5-5.1 [facility] Comment on above: Performed By: #### T SH, BMP #### [facility] [address] [place] [address] Dr. Douglas Tucker Sodium [Moles/Vol] 141 mmol/L Normal 136-145 [facility] Comment on above: Performed By: #### T SH, BMP #### [facility] [address] [place] [address] Dr. Douglas Tucker Urea nitrogen [Mass/Vol] 10.0 mg/dL Normal 7.0-18.0 [facility] Comment on above: Performed By: #### T SH, BMP #### [facility] [address] [place] [address] Dr. Douglas Tucker Urea nitrogen/Creatinine [Mass ratio] 11.4 mg/mg Normal [facility] Comment on above: Performed By: #### T ZAIDA, BMP #### [facility] [address] [place], [place] [address] Dr. Douglas Tucker TSHon 08-13-2022 TSH 0.730 uIU/mL Normal 0.358-3.740 [facility] Comment on above: Performed By: #### T ZAIDA, BMP #### [facility] [id number] Douglas Tucker Automated erythrocytes count in urine sediment (number/area)Ordered By: Mario Pee on 06-14-2022 RBC Auto (Urine sed) [#/Area] None seen [HPF] 0-4 [facility] Automated leukocytes count i n urine sediment (number/area)Ordered By: Mario Perezgles on 06-14-2022 WBC Auto (Urine sed) [#/Area] 20-49 [HPF] 0-4 [facility] Bilirubin Test strip Ql (U)O rdered By: Mario Perezgles on 06-14-2022 Bilirubin Ql (U) Negative Negative [facility] Color Auto (U)Ordered By: Pee on 06-14-2022 Color (U) Yellow Yellow [facility] Ketones Auto test strip (U) [Mass/Vol]Ordered By: Mario Perezgles on 06-14-2022 Ketones (U) [Mass/Vol] Negative Negative [facility] Laboratory - UrinalysisOrder ed By: Mario Perezgles on 06-14-2022 Hyaline casts LM Ql (Urine sed) 0-8 [LPF] 0-8 [facility] Nitrite Test strip Ql (U)Ord ered By: Mario Perezgles on 06-14-2022 Nitrite Ql (U) Negative Negative [facility] Protein Auto test strip (U) [Mass/Vol]Ordered By: Mario Perezgles on 06-14-2022 Protein (U) [Mass/Vol] Negative Negative [facility] Specific gravity Auto test s trip (U) [Rel density]Ordered By: Mario Perezgles on 06-14-2022 Specific gravity (U) [Rel density] 1.013 1.001-1.030 [facility] Squamous epithelial cells de tection in urine sediment by light microscopyOrdered By: Mario Glasgow on 06-14-2022 Epithelial cells.squamous LM Ql (Urine sed) 5-9 [HPF] 0-2 [facility] Urine bacteria detection by automated methodOrdered By: Mario Glasgow on 06-14-2022 Bacteria Auto Ql (U) 2+ None Seen [facility] [place] Urine clarity by refractomet ry automatedOrdered By: Mario Glasgow on 06-14-2022 Clarity Refractometry automated (U) Cloudy Clear [facility] Urine culture routineOrdered By: Mario Glasgow on 06-14-2022 Bacteria identified Cx Nom (U) Strep. agalactiae [facility] Urine glucose measurement by automated test strip (mass/volume)Ordered By: Mario Glasgow on 06-14-2022 Glucose Auto test strip (U) [Mass/Vol] Normal mg/dL Normal [facility] Urine hemoglobin detection b y automated test stripOrdered By: Mario Glasgow on 06-14-2022 Hemoglobin Auto test strip Ql (U) Negative Negative [facility] Urine leukocyte esterase det ection by automated test stripOrdered By: Mario Glasgow on 06-14-2022 Leukocyte esterase Auto test strip Ql (U) 3+ Negative [facility] Urobilinogen Auto test strip (U) [Mass/Vol]Ordered By: Mario Glasgow on 06-14-2022 Urobilinogen (U) [Mass/Vol] Normal mg/dL Normal [facility] pH Auto test strip (U)Ordere d By: Mario Glasgow on 06-14-2022 pH (U) 5.5 [pH] 5.0-9.0 [facility] HCG ( test) [place].rapi d Ql (U)Ordered By: Figueroa Galindo on 05-02-2022 HCG ( test) Ql (U) Negative [facility] CULTURE URINEon 04-25-2022 CULTURE URINE Culture Observations : MODERATE GROWTH OF MIXED GENITAL CRICKET. NO POTENTIAL PATHOGENS SEEN. Normal [facility] Comment on above: Performed By: #### U RCX ####[facility] [address] [place] [address]Dr. Douglas Tucker ER URINE PROFILEon 3 Bilirubin Ql (U) Negative Normal NEGATIVE [facility] Comment on above: Performed By: #### P MONALISA GOODWINRO, ERUR #### [facility] [address] [address] [address] Douglas Tucker Clarity (U) SL CLOUDY Abnormal CLEAR [facility] Comment on above: Performed By: #### P REGCHERYL IbarraICRO, ERUR #### [facility] [address] [address] [address] Douglas Tucker Color (U) YELLOW Normal YELLOW [facility] Comment on above: Performed By: #### P BLAINE GOODWIN, ERUR #### [facility] [address] [place] [address] Dr. Douglas GIRON A micrscopic examina tion will be performed if indicated. Normal [facility] Comment on above: Performed By: #### P REGCHERYL IbarraICRO, ERUR #### [facility] [address] [place] [address] Dr. Douglas Tucker Glucose Ql (U) Negative Normal NEGATIVE [facility] Comment on above: Performed By: #### P CHERYL GOODWINICRO, ERUR #### [facility] [address] [place] [address] Dr. Douglas Tucker Hemoglobin Ql (U) SMALL Abnormal NEGATIVE [facility] Comment on above: Performed By: #### P REGUCHERYLICRO, ERUR #### [facility] [address] [address] [address] Douglas Tucker Ketones Ql (U) Negative Normal NEGATIVE [facility] Comment on above: Performed By: #### P JESSICAUCHERYLICRO, ERUR #### [facility] [address] [address] [address] Douglas Tucker LEUKOCYTES Negative Normal NEGATIVE [facility] Comment on above: Performed By: #### P REGUMONALISARO, ERUR #### [facility] [address] [address] [address] Douglas Tucker Nitrite Ql (U) Negative Normal NEGATIVE [facility] Comment on above: Performed By: #### P BLAINE GOODWIN, ERUR #### [facility] [address] [place] [address] Dr. Douglas Tucker pH (U) 6.0 [pH] Normal 5-9 [facility] Comment on above: Performed By: #### P BLAINE GOODWIN, ERUR #### [facility] [address] [place] [address] Dr. Douglas Tucker SPEC GRAVITY >=1.030 Abnormal 1.005-<=1.0 25 [facility] Comment on above: Performed By: #### BLAINE MALAVE, ERUR #### [facility] [address] [place] [address] Dr. Douglas Tucker UA PROTEIN TRACE Normal NEGATIVE/ TRACE [facility] Comment on above: Performed By: #### BLAINE MALAVE, ERUR #### [facility] [address] [place] [address] Dr. Douglas Tucker UR MICRO IND INDICATED Normal [facility] Comment on above: Performed By: #### BLAINE MALAVE, ERUR #### [facility] [address] [place] [address] Dr. Douglas Tucker Urobilinogen Qn (U) 0.2 {[place]ba'U}/dL Normal 0.2 - 1. 0 [facility] Comment on above: Performed By: #### BLAINE MALAVE, ERUR #### [facility] [address] [place] [address] Dr. Douglas Tucker URon 04-25-2022 , QUAL Negative Normal NEGATIVE [facility] Comment on above: Performed By: #### BLAINE MALAVE, ERUR #### [facility] [address] [place] [address] Dr. Douglas Tucker URINE MICROSCOPIC ONLYon BACTERIA MODERATE Abnormal NONE SEEN [facility] Comment on above: Performed By: #### P BLAINE GOODWIN, ERUR #### [facility] [address] [address] [address] Douglas Tucker Bacteria identified Cx Nom (U) INDICATED Normal [facility] Comment on above: Performed By: #### BLAINE MALAVE, ERUR #### [facility] [address] [place] [address] Dr. Douglas Tucker CAST NONE SEEN Normal NONE SEEN [facility] Comment on above: Performed By: #### BLAINE MALAVE, ERUR #### [facility] [address] [address] [address] Douglas Tucker Crystals LM Nom (Urine sed) NONE SEEN Normal NONE SEEN [facility] Comment on above: Performed By: #### BLAINE MALAVE, ERUR #### [facility] [address] [place] [address] Dr. Douglas Tucker Epithelial cells LM Ql (Urine sed) MODERATE Abnormal NONE SEEN /RARE [facility] Comment on above: Performed By: #### BLAINE MALAVE, ERUR #### [facility] [address] [place] [address] Dr. Douglas Tucker MUCOUS NONE SEEN Normal NONE SEEN [facility] Comment on above: Performed By: #### BLAINE MALAVE, ERUR #### [facility] [address] [place] [address] Dr. Douglas Tucker RBC 2-5 Abnormal 0-2 [facility] Comment on above: Performed By: #### BLAINE MALAVE, ERUR #### [facility] [address] [place] [address] Dr. Douglas Tucker WBC 0-2 Abnormal NONE SEEN [facility] Comment on above: Performed By: #### BLAINE MALAVE, ERUR #### [facility] [address] [place] [address] Dr. Douglas Tucker COVID-19 SOFIAOrdered By: Adal Garcia on 04-23-2022 SARS-CoV+SARS-CoV-2 (COVID-19) Ag IA.rapid Ql (Resp) Negative Negative [facility] Comment on above: This is a duplicate Ruth SARS Antigen (LILLY) result to be used for statistical tracking purpose only. No Panel InformationOrdered By: Jen Garcia on 04-23-2022 SARS Antigen (LFIA) [facility] Activated partial thrombopla stin time (aPTT) in platelet poor plasma by coagulation aOrdered By: Jen Garcia on 04-10-2022 aPTT Coag (PPP) [Time] 31.6 s 25.1-36.5 [facility] Albumin [Mass/volume] in Ser um or PlasmaOrdered By: Jen Garcia on 04-10-2022 Albumin [Mass/Vol] 4.4 g/dL 3.2-5.5 [facility] Automated erythrocytes count in urine sediment (number/area)Ordered By: Jen Garcia on 04-10-2022 RBC Auto (Urine sed) [#/Area] None seen [HPF] 0-4 [facility] Automated leukocytes count i n urine sediment (number/area)Ordered By: Jen Garcia on 04-10-2022 WBC Auto (Urine sed) [#/Area] 20-49 [HPF] 0-4 [facility] Automated urine hyaline cast s count (number/volume)Ordered By: Jen Garcia on 04-10-2022 Hyaline casts Auto (U) [#/Vol] None seen [LPF] 0-1 [facility] Basophils Auto (Bld) [#/Vol] Ordered By: Jen Garcia on 04-10-2022 Basophils (Bld) [#/Vol] 0.0 10*3/uL 0.0-0.2 [facility] Basophils/100 WBC Auto (Bld) Ordered By: Jen Garcia on 04-10-2022 Basophils/100 WBC (Bld) 0.4 % . [facility] Bilirubin Test strip Ql (U)O rdered By: Jen Garcia on 04-10-2022 Bilirubin Ql (U) Negative Negative [facility] Casts typing in urine sedime nt by light microscopyOrdered By: Jen Garcia on 04-10-2022 Casts LM Nom (Urine sed) None seen [LPF] None Seen [facility] Color Auto (U)Ordered By: Adal Garcia on 04-10-2022 Color (U) Yellow Yellow [facility] Creatinine and Glomerular fi ltration rate.predicted panel (S/P/Bld)Ordered By: Jen Garcia on 04-10-2022 Creatinine [Mass/Vol] 0.80 mg/dL 0.44-1.03 [facility] Eosinophils Auto (Bld) [#/Vo l]Ordered By: Jen Garcia on 04-10-2022 Eosinophils (Bld) [#/Vol] 0.3 10*3/uL 0.0-0.45 [facility] Eosinophils/100 WBC Auto (Bl d)Ordered By: Jen Garcia on 04-10-2022 Eosinophils/100 WBC (Bld) 3.6 % . [facility] Erythrocyte distribution wid th Auto (RBC) [Ratio]Ordered By: Jen Garcia on 04-10-2022 Erythrocyte distribution width (RBC) [Ratio] 13.0 % 11.9-15.3 [facility] Estimated glomerular filtrat ion rate (GFR) non- AmericanOrdered By: Jen Garcia on 04-10-2022 GFR/1.73 sq M.predicted among non-blacks MDRD (S/P/Bld) [Vol rate/Area] > 60 mL/Min [facility] Globulin Calc (S) [Mass/Vol] Ordered By: Jen Garcia on 04-10-2022 Globulin (S) [Mass/Vol] 3.1 g/dL [facility] Hematocrit Auto (Bld) [Volum e fraction]Ordered By: Jen Garcia on 04-10-2022 Hematocrit (Bld) [Volume fraction] 44.2 % 34.0-46.4 [facility] Hemoglobin [Mass/volume] in BloodOrdered By: Jen Garcia on 04-10-2022 Hemoglobin (Bld) [Mass/Vol] 14.8 g/dL 11.8-15.4 [facility] Ketones Auto test strip (U) [Mass/Vol]Ordered By: Jen Garcia on 04-10-2022 Ketones (U) [Mass/Vol] Negative Negative [facility] Laboratory - CoagulationOrde red By: Jen Garcia on 04-10-2022 PT Coag (PPP) [Time] 10.8 s 9.0-12.9 [facility] Leukocytes [#/volume] correc armaan for nucleated erythrocytes in Blood by Automated counOrdered By: Jen Garcia on 04-10-2022 WBC corrected for nucl RBC Auto (Bld) [#/Vol] 8.6 10*3/uL 3.8-11.6 [facility] Lymphocytes Auto (Bld) [#/Vo l]Ordered By: Jen Garcia on 04-10-2022 Lymphocytes (Bld) [#/Vol] 3.0 10*3/uL 1.00-4.8 [facility] Lymphocytes/100 WBC Auto (Bl d)Ordered By: Jen Garcia on 04-10-2022 Lymphocytes/100 WBC (Bld) 35.3 % . [facility] MCH Auto (RBC) [Entitic mass ]Ordered By: Jen Garcia on 04-10-2022 MCH (RBC) [Entitic mass] 31.8 pg 24.7-34.3 [facility] MCHC Auto (RBC) [Mass/Vol]Or dered By: Jen Garcia on 04-10-2022 MCHC (RBC) [Mass/Vol] 33.5 g/dL 32.0-35.0 [facility] MCV Auto (RBC) [Entitic vol] Ordered By: Jen Garcia on 04-10-2022 MCV (RBC) [Entitic vol] 95.0 fL 80-100 [facility] Monocytes Auto (Bld) [#/Vol] Ordered By: Jen Garcia on 04-10-2022 Monocytes (Bld) [#/Vol] 0.6 10*3/uL 0.0-0.8 [facility] Monocytes/100 WBC Auto (Bld) Ordered By: Jen Garcia on 04-10-2022 Monocytes/100 WBC (Bld) 7.0 % . [facility] Neutrophils Auto (Bld) [#/Vo l]Ordered By: Jen Garcia on 04-10-2022 Neutrophils (Bld) [#/Vol] 4.6 10*3/uL 1.8-7.7 [facility] Neutrophils/100 WBC Auto (Bl d)Ordered By: Jen Garcia on 04-10-2022 Neutrophils/100 WBC (Bld) 53.7 % . [facility] Nitrite Test strip Ql (U)Ord ered By: Jen Garcia on 04-10-2022 Nitrite Ql (U) Negative Negative [facility] No Panel InformationOrdered By: Jen Garcia on 04-10-2022 Estimated GFR () > 60 mL/Min [facility] Comment on above: GFR estimated refere nce range: According to KDOQI guidelines, <60 ml/min/1.73m2 is sufficient to diagnose a patient with chronic kidney disease. Pharmacy Creatinine Clearance (Chem N/A [facility] Nucleated erythrocytes [Pres ence] in Blood by Automated countOrdered By: Jen Garcia on 04-10-2022 Nucleated RBC Auto Ql (Bld) 0.1 /100{WBC} 0-0.5 [facility] Platelet mean volume Auto (B ld) [Entitic vol]Ordered By: Jen Garcia on 04-10-2022 Platelet mean volume (Bld) [Entitic vol] 9.1 fL 6.3-10.7 [facility] Platelet poor plasma interna tional normalized ratio (INR) by coagulation assay (relatOrdered By: Jen Garcia on 04-10-2022 INR Coag (PPP) [Relative time] 1.0 {INR} [facility] Comment on above: INR Therapeutic [...] 4.5 Platelets Auto (Bld) [#/Vol] Ordered By: Jen Garcia on 04-10-2022 Platelets (Bld) [#/Vol] 192 10*3/uL 150-450 [facility] Protein Auto test strip (U) [Mass/Vol]Ordered By: Jen Garcia on 04-10-2022 Protein (U) [Mass/Vol] Negative Negative [facility] Protein [Mass/volume] in Ser um or PlasmaOrdered By: Jen Garcia on 04-10-2022 Protein [Mass/Vol] 7.5 g/dL 6.1-7.9 [facility] RBC Auto (Bld) [#/Vol]Ordere d By: Jen Garcia on 04-10-2022 RBC (Bld) [#/Vol] 4.65 10*6/uL 3.60-5.00 [facility] Serum or plasma alanine venegas otransferase measurement without P-5'-P (enzymatic activiOrdered By: Jen Garcia on 04-10-2022 ALT No additional P-5'-P [Catalytic activity/Vol] 19 U/L 10-60 [facility] Serum or plasma albumin/glob ulin mass ratioOrdered By: Jen Garcia on 04-10-2022 Albumin/Globulin [Mass ratio] 1.4 {ratio} [facility] Serum or plasma alkaline molina sphatase measurement (enzymatic activity/volume)Ordered By: Jen Garcia on 04-10-2022 ALP [Catalytic activity/Vol] 47 U/L 32-92 [facility] Serum or plasma anion gap de terminationOrdered By: Jen Garcia on 04-10-2022 Anion gap [Moles/Vol] 13.2 mmol/L 6.0-15.0 [facility] Serum or plasma aspartate am inotransferase measurement (enzymatic activity/volume)Ordered By: Jen Garcia on 04-10-2022 AST [Catalytic activity/Vol] 18 U/L 10-42 [facility] Serum or plasma calcium liam urement (mass/volume)Ordered By: Jen Garcia on 04-10-2022 Calcium [Mass/Vol] 9.5 mg/dL 8.2-10.2 [facility] Serum or plasma chloride fransisca surement (moles/volume)Ordered By: Jen Garcia on 04-10-2022 Chloride [Moles/Vol] 106 mmol/L 95-114 [facility] Serum or plasma glucose liam urement (mass/volume)Ordered By: Jen Garcia on 04-10-2022 Glucose [Mass/Vol] 88 mg/dL 70-100 [facility] Comment on above: ADA recommended refe rence rangeRandom Glucose Reference Range is dependent on time and content of last meal. Glucose of more than 200 mg/dL in a nonstressed, ambulatory subject supports the diagnosis of Diabetes Mellitus. Serum or plasma potassium me asurement (moles/volume)Ordered By: Jen Garcia on 04-10-2022 Potassium [Moles/Vol] 4.1 mmol/L 3.5-5.1 [facility] Serum or plasma sodium measu rement (moles/volume)Ordered By: Jen Garcia on 04-10-2022 Sodium [Moles/Vol] 134 mmol/L 136-146 [facility] Serum or plasma total biliru bin measurement (mass/volume)Ordered By: Jen Garcia on 04-10-2022 Bilirubin [Mass/Vol] 0.7 mg/dL 0.3-1.2 [facility] Serum or plasma total carbon dioxide measurement (moles/volume)Ordered By: Jen Garcia on 04-10-2022 CO2 [Moles/Vol] 18.9 mmol/L 22.0-30.0 [facility] Serum or plasma urea nitroge n measurement (mass/volume)Ordered By: Jen Garcia on 04-10-2022 Urea nitrogen [Mass/Vol] 14 mg/dL 9-23 [facility] Specific gravity Auto test s trip (U) [Rel density]Ordered By: Jen Garcia on 04-10-2022 Specific gravity (U) [Rel density] 1.016 1.001-1.030 [facility] Squamous epithelial cells de tection in urine sediment by light microscopyOrdered By: Jen Garcia on 04-10-2022 Epithelial cells.squamous LM Ql (Urine sed) 10-19 [HPF] 0-2 [facility] Urine bacteria detection by automated methodOrdered By: Jen Garcia on 04-10-2022 Bacteria Auto Ql (U) 2+ None Seen [facility] Urine clarity by refractomet ry automatedOrdered By: Jen Garcia on 04-10-2022 Clarity Refractometry automated (U) Cloudy Clear [facility] Urine culture routineOrdered By: Jen Garcia on 04-10-2022 Bacteria identified Cx Nom (U) 2 Days [facility] Urine glucose measurement by automated test strip (mass/volume)Ordered By: Jen Garcia on 04-10-2022 Glucose Auto test strip (U) [Mass/Vol] Normal mg/dL Normal [facility] Urine hemoglobin detection b y automated test stripOrdered By: Jen Garcia on 04-10-2022 Hemoglobin Auto test strip Ql (U) Negative Negative [facility] Urine leukocyte esterase det ection by automated test stripOrdered By: Jen Garcia on 04-10-2022 Leukocyte esterase Auto test strip Ql (U) 3+ Negative [facility] Urobilinogen Auto test strip (U) [Mass/Vol]Ordered By: Jen Garcia on 04-10-2022 Urobilinogen (U) [Mass/Vol] Normal mg/dL Normal [facility] WBC Auto (Bld) [#/Vol]Ordere d By: Jen Garcia on 04-10-2022 WBC (Bld) [#/Vol] 8.6 10*3/uL 3.8-11.6 [facility] pH Auto test strip (U)Ordere d By: Jen Garcia on 04-10-2022 pH (U) 5.5 [pH] 5.0-9.0 [facility] XR ANKLE RT MIN 3 [...] by: LIZZIE YU Date: 2022-03-28 22:01 Normal [facility] XR SHOULDER LT 2V or >on XR [...] JASS GRISSOM Date: 2022-02-10 21:41 Normal [facility] CBC AUTO DIFFon 01-28-2022 BASO # 0.0 103/ul Normal 0.0-0.1 [facility] Comment on above: Performed By: #### C BC ####[facility] [address] [id number]. Douglas Tucker Basophils/100 WBC (Bld) 0.7 % Normal 0.2-2.0 [facility] Comment on above: Performed By: #### C BC ####[facility] [address] [id number]. Umuana Garrett EO # 0.1 103/ul Normal 0.0-0.7 [facility] Comment on above: Performed By: #### C BC ####[facility] [address] [place], [place] [address]Dr. Douglas Tucker Eosinophils/100 WBC (Bld) 2.2 % Normal 0.9-7.0 [facility] Comment on above: Performed By: #### C BC ####[facility] [address] [place], [place] [address]Dr. Douglas Tucker Erythrocyte distribution width (RBC) [Ratio] 12.0 % Normal 11.0-15.0 [facility] Comment on above: Performed By: #### C BC ####[facility] [address] [id number]. Douglas Tucker Hematocrit (Bld) [Volume fraction] 41.3 % Normal 36.0-48.0 [facility] Comment on above: Performed By: #### C BC ####[facility] [address] [id number]. Douglas Tucker Hemoglobin (Bld) [Mass/Vol] 13.7 g/dL Normal 12.0-16.0 [facility] Comment on above: Performed By: #### C BC ####[facility] [address] [place], [place] [id number]. Douglas Tucker IG # 0.01 10e3/ul Normal 0.00-0.03 [facility] Comment on above: Performed By: #### C BC ####[facility] [address] [id number]. Douglas Tucker IG % 0.2 % Normal 0.0-0.5 [facility] Comment on above: Performed By: #### C BC ####[facility] [address] [id number]. Douglas Tucker LYMPH # 2.1 103/ul Normal 1.2-3.8 [facility] Comment on above: Performed By: #### C BC ####[facility] [address] [id number]. Douglas Garrett Lymphocytes/100 WBC (Bld) 38.5 % Normal 20.5-60.0 [facility] Comment on above: Performed By: #### C BC ####[facility] [address] [place], [place] [address]Dr. Douglas Tucker MANUAL DIFF REQ NO Normal [facility] Comment on above: Performed By: #### C BC ####[facility] [address] [id number]. Douglas Tucker MCH (RBC) [Entitic mass] 31.9 pg Normal 26.7-34.0 [facility] Comment on above: Performed By: #### C BC ####[facility] [address] [place], [place] [address]Dr. Douglas Tucker MCHC (RBC) [Mass/Vol] 33.2 g/dL Normal 29.9-35.2 [facility] Comment on above: Performed By: #### C BC ####[facility] [address] [place], [place] [address]Dr. Douglas Tucker MCV (RBC) [Entitic vol] 96.0 fL Normal 81.0-99.0 [facility] Comment on above: Performed By: #### C BC ####[facility] [address] [id number]. Douglas Garrett MONO # 0.4 103/ul Normal 0.3-0.8 [facility] Comment on above: Performed By: #### C BC ####[facility] [address] [id number]. Douglas Tucker Monocytes/100 WBC (Bld) 7.8 % Normal 1.7-12.0 [facility] Comment on above: Performed By: #### C BC ####[facility] [address] [id number]. Douglas Tucker NEUT # 2.8 103/ul Normal 1.4-6.5 [facility] Comment on above: Performed By: #### C BC ####[facility] [address] [id number]. Douglas Tucker Neutrophils/100 WBC (Bld) 50.6 % Normal 43.0-75.0 [facility] Comment on above: Performed By: #### C BC ####[facility] [address] [address]Dr. Douglas Tucker Platelet mean volume (Bld) [Entitic vol] 10.7 fL Normal 9.5-13.5 [facility] Comment on above: Performed By: #### C BC ####[facility] [address] [id number]. Douglas Tucker PLT 189 103/ul Normal 150-450 [facility] Comment on above: Performed By: #### C BC ####[facility] [address] [id number]. Douglas Tucker RBC 4.30 106/ul Normal 4.20-5.40 [facility] Comment on above: Performed By: #### C BC ####[facility] [address] [id number]. Douglas Tucker WBC 5.5 103/ul Normal 4.0-11.0 [facility] Comment on above: Performed By: #### C BC ####[facility] [address] [address]Dr. Douglas Tucker CULTURE URINEon 01-28-2022 CULTURE URINE Culture Observations : MODERATE GROWTH OF MIXED GENITAL CRICKET. NO POTENTIAL PATHOGENS SEEN. Normal [facility] Comment on above: Performed By: #### U RCX ####[facility] [address] [address]Dr. Douglas Tucker ER URINE PROFILEon 2 Bilirubin Ql (U) Negative Normal NEGATIVE [facility] Comment on above: Performed By: #### U MICRO, ERUR #### [facility] [address] [address] [address] Douglas Tucker Clarity (U) CLEAR Normal CLEAR [facility] Comment on above: Performed By: #### U MICRO, ERUR #### [facility] [address] [address] [address] Douglas Tucker Color (U) LT. YELLOW Normal YELLOW [facility] Comment on above: Performed By: #### U MICRO, ERUR #### [facility] [address] [place] [address] Dr. Douglas Tucker ERUAHD A micrscopic examina tion will be performed if indicated. Normal [facility] Comment on above: Performed By: #### U MICRO, ERUR #### [facility] [address] [address] [address] Douglas Tucker Glucose Ql (U) Negative Normal NEGATIVE [facility] Comment on above: Performed By: #### U MICRO, ERUR #### [facility] [address] [address] [address] Douglas Tucker Hemoglobin Ql (U) TRACE-INTACT Abnormal NEGATIVE [facility] Comment on above: Performed By: #### U MICRO, ERUR #### [facility] [address] [address] [address] Douglas Tucker Ketones Ql (U) Negative Normal NEGATIVE [facility] Comment on above: Performed By: #### U MICRO, ERUR #### [facility] [address] [address] [address] Duoglas Tucker LEUKOCYTES TRACE Abnormal NEGATIVE [facility] Comment on above: Performed By: #### U MICRO, ERUR #### [facility] [address] [address] [address] Douglas Tucker Nitrite Ql (U) Negative Normal NEGATIVE [facility] Comment on above: Performed By: #### U MICRO, ERUR #### [facility] [address] [address] [address] Douglas Tucker pH (U) 6.5 [pH] Normal 5-9 [facility] Comment on above: Performed By: #### U MICRO, ERUR #### [facility] [address] [address] [address] Douglas Tucker SPEC GRAVITY 1.020 Normal 1.005-<=1.0 25 [facility] Comment on above: Performed By: #### U MICRO, ERUR #### [facility] [address] [address] [address] Douglas Tucker UA PROTEIN Negative Normal NEGATIVE/ TRACE [facility] Comment on above: Performed By: #### U MICRO, ERUR #### [facility] [address] [place] [address] Dr. Douglas Tucker UR MICRO IND INDICATED Normal [facility] Comment on above: Performed By: #### U MICRO, ERUR #### [facility] [address] [address] [address] Douglas Tucker Urobilinogen Qn (U) 0.2 {Elba'U}/dL Normal 0.2 - 1. 0 [facility] Comment on above: Performed By: #### U MICRO, ERUR #### [facility] [address] [address] [address] Douglas Tucker PROF 14(COMP METB)on 022 Albumin [Mass/Vol] 3.9 g/dL Normal 3.4-5.0 [facility] Comment on above: Performed By: #### C MP ####[facility] [address] [address]Dr. Douglas Tucker Albumin/Globulin [Mass ratio] 1.1 {ratio} Normal [facility] Comment on above: Performed By: #### C MP ####[facility] [address] [address]Dr. Douglas Tukcer ALP [Catalytic activity/Vol] 52 U/L Normal 46-116 [facility] Comment on above: Performed By: #### C MP ####[facility] [address] [id number]. Douglas Tucker ALT [Catalytic activity/Vol] 31 U/L Normal 14-59 [facility] Comment on above: Performed By: #### C MP ####[facility] [address] [address]Dr. Douglas Tucker Anion gap [Moles/Vol] 9.6 mmol/L Normal [facility] Comment on above: Performed By: #### C MP ####[facility] [address] [address]Dr. Douglas Tucker AST [Catalytic activity/Vol] 15 U/L Normal 15-37 [facility] Comment on above: Performed By: #### C MP ####[facility] [address] [place], [place] [address]Dr. Douglas Tucker Bilirubin [Mass/Vol] 0.3 mg/dL Normal 0.2-1.0 [facility] Comment on above: Performed By: #### C MP ####[facility] [address] [place], [place] [address]Dr. Douglas Tucker Calcium [Mass/Vol] 8.6 mg/dL Normal 8.5-10.1 [facility] Comment on above: Performed By: #### C MP ####[facility] [address] [place], [place] [address]Dr. Douglas Tucker Chloride [Moles/Vol] 107 mmol/L Normal 98-107 [facility] Comment on above: Performed By: #### C MP ####[facility] [address] [place], [place] [address]Dr. Douglas Tucker CO2 [Moles/Vol] 27.4 mmol/L Normal 21.0-32.0 [facility] Comment on above: Performed By: #### C MP ####[facility] [address] [place], [place] [address]Dr. Douglas Tucker Creatinine [Mass/Vol] 0.90 mg/dL Normal 0.55-1.02 [facility] Comment on above: Performed By: #### C MP ####[facility] [address] [id number]. Douglas Tucker EGFR-AF IVORIAN >60 Normal >=60 [facility] Comment on above: Performed By: #### C MP ####[facility] [address] [address]Dr. Douglas Tucker EGFR-NON AF IVORIAN >60 Normal >=60 [facility] Comment on above: Performed By: #### C MP ####[facility] [address] [place], [place] [address]Dr. Douglas Garrett Globulin (S) [Mass/Vol] 3.4 g/dL Normal [facility] Comment on above: Performed By: #### C MP ####[facility] Ox[address] [place], [place] [address]Dr. Douglas Garrett Glucose [Mass/Vol] 90 mg/dL Normal 74-106 [facility] Comment on above: Performed By: #### C MP ####[facility] [address] [place], [place] [address]Dr. Douglas Garrett Potassium [Moles/Vol] 4.0 mmol/L Normal 3.5-5.1 [facility] Comment on above: Performed By: #### C MP ####[facility] Qlzeitwegv[address] [place], [place] [address]Dr. Douglas Garrett Protein [Mass/Vol] 7.3 g/dL Normal 6.4-8.2 [facility] Comment on above: Performed By: #### C MP ####[facility] Zzqspgrhfq[address] [place], [place] [address]Dr. Douglas Garrett Sodium [Moles/Vol] 140 mmol/L Normal 136-145 [facility] Comment on above: Performed By: #### C MP ####[facility] Ahdlqdpmox[address] [place], [place] [address]Dr. Douglas Garrett Urea nitrogen [Mass/Vol] 10.0 mg/dL Normal 7.0-18.0 [facility] Comment on above: Performed By: #### C MP ####[facility] Bxxoxyceds[address] [place], [place] [address]Dr. Douglas Tucker Urea nitrogen/Creatinine [Mass ratio] 11.1 mg/mg Normal [facility] Comment on above: Performed By: #### C MP ####[facility] Qcnldvasnk1348 [place] [address]Dr. Douglas Tucker URINE MICROSCOPIC ONLYon BACTERIA MODERATE Abnormal NONE SEEN [facility] Comment on above: Performed By: #### U MICRO, ERUR #### [facility] [address] [place] [address] Dr. Douglas Tucker Bacteria identified Cx Nom (U) INDICATED Normal [facility] Comment on above: Performed By: #### U MICRO, ERUR #### [facility] [address] [place] [address] Dr. Douglas Tucker CAST NONE SEEN Normal NONE SEEN [facility] Comment on above: Performed By: #### U MICRO, ERUR #### [facility] [address] [place] [address] Dr. Douglas Tucker Crystals LM Nom (Urine sed) NONE SEEN Normal NONE SEEN [facility] Comment on above: Performed By: #### U MICRO, ERUR #### [facility] [address] [place] [address] Dr. Douglas Tucker Epithelial cells LM Ql (Urine sed) FEW Abnormal NONE SEEN /RARE [facility] Comment on above: Performed By: #### U MICRO, ERUR #### [facility] [address] [place] [address] Dr. Douglas Tucker MUCOUS NONE SEEN Normal NONE SEEN [facility] Comment on above: Performed By: #### U MICRO, ERUR #### [facility] [address] [place] [address] Dr. Douglas Tucker RBC 0-2 Normal 0-2 [facility] Comment on above: Performed By: #### U MICRO, ERUR #### [facility] [address] [place] [address] Dr. Douglas Tucker WBC 2-5 Abnormal NONE SEEN [facility] Comment on above: Performed By: #### U MICRO, ERUR #### [facility] [address] [place] [address] Dr. Douglas Tucker US KIDNEYSon 01-28-2022 US KIDNEYS EXAMINATION: US PO RAY HISTORY: Pain ; right flank pain for [...] RICHELLE BUSH Date: 2022-01-28 13:45 Normal [facility] CBC AUTO DIFFon 10-29-2021 BASO # 0.1 103/ul Normal 0.0-0.1 [facility] Comment on above: Performed By: #### C BC ####[facility] Jcygwjyrtt1487 [place] [address]Dr. Douglas Tucker Basophils/100 WBC (Bld) 0.8 % Normal 0.2-2.0 [facility] Comment on above: Performed By: #### C BC ####[facility] Epeyqdxcgu[address] [place] [address]Dr. Douglas Tucker EO # 0.2 103/ul Normal 0.0-0.7 [facility] Comment on above: Performed By: #### C BC ####[facility] Tvylwsxdtz6947 [place] [address]Dr. Douglas Tucker Eosinophils/100 WBC (Bld) 3.0 % Normal 0.9-7.0 [facility] Comment on above: Performed By: #### C BC ####[facility] Jnbgpjmgtt9434 [place] [address]Dr. Douglas Tucker Erythrocyte distribution width (RBC) [Ratio] 12.2 % Normal 11.0-15.0 [facility] Comment on above: Performed By: #### C BC ####[facility] Znedokzeim0607 [place] [address]Dr. Umuana Tucker Hematocrit (Bld) [Volume fraction] 39.9 % Normal 36.0-48.0 [facility] Comment on above: Performed By: #### C BC ####[facility] Ujkvfquwol7292 [place] [address]Dr. Douglas Tucker Hemoglobin (Bld) [Mass/Vol] 13.5 g/dL Normal 12.0-16.0 [facility] Comment on above: Performed By: #### C BC ####[facility] Curgphqnsd[address] [place], [place] [address]Dr. Douglas Tucker IG # 0.01 10e3/ul Normal 0.00-0.03 [facility] Comment on above: Performed By: #### C BC ####[facility] Evetaotnqo[address] [place], [place] [address]Dr. Douglas Tucker IG % 0.2 % Normal 0.0-0.5 [facility] Comment on above: Performed By: #### C BC ####[facility] Vsnprhxkdk[address] [place], [place] [address]Dr. Douglas Tucker LYMPH # 3.0 103/ul Normal 1.2-3.8 [facility] Comment on above: Performed By: #### C BC ####[facility] Gevmkwodhz[address] [place], [place] [address]Dr. Douglas Tucker Lymphocytes/100 WBC (Bld) 44.6 % Normal 20.5-60.0 [facility] Comment on above: Performed By: #### C BC ####[facility] Cpihlmuwbl[address] [place], [place] [address]Dr. Douglas Tucker MANUAL DIFF REQ NO Normal [facility] Comment on above: Performed By: #### C BC ####[facility] Wbjzkuuvjj7[address] [place], [place] [address]Dr. Douglas Tucker MCH (RBC) [Entitic mass] 32.1 pg Normal 26.7-34.0 [facility] Comment on above: Performed By: #### C BC ####[facility] Tofbfzvclr86[address] [place] [id number]. Douglas Tucker MCHC (RBC) [Mass/Vol] 33.8 g/dL Normal 29.9-35.2 [facility] Comment on above: Performed By: #### C BC ####[facility] Fjjbbqbmjp4660 [place] [address]Dr. Douglas Tucker MCV (RBC) [Entitic vol] 95.0 fL Normal 81.0-99.0 [facility] Comment on above: Performed By: #### C BC ####[facility] Irwdepljgi[address] [place], [place] [address]Dr. Douglas Tucker MONO # 0.5 103/ul Normal 0.3-0.8 [facility] Comment on above: Performed By: #### C BC ####[facility] Vwggkppisi[address] [place], [place] [address]Dr. Douglas Tucker Monocytes/100 WBC (Bld) 7.8 % Normal 1.7-12.0 [facility] Comment on above: Performed By: #### C BC ####[facility] Ywrctdqztw[address] [place], [place] [address]Dr. Umuana Tucker NEUT # 2.9 103/ul Normal 1.4-6.5 [facility] Comment on above: Performed By: #### C BC ####[facility] Snzrrkouqh[address] [place], [place] [address]Dr. Douglas Tucker Neutrophils/100 WBC (Bld) 43.6 % Normal 43.0-75.0 [facility] Comment on above: Performed By: #### C BC ####[facility] Uwnijrzntp350[address] [place], [place] [address]Dr. Douglas Tucker Platelet mean volume (Bld) [Entitic vol] 11.1 fL Normal 9.5-13.5 [facility] Comment on above: Performed By: #### C BC ####[facility] Apuozraagd[address] [place], [place] [address]Dr. Douglas Tucker PLT 188 103/ul Normal 150-450 [facility] Comment on above: Performed By: #### C BC ####[facility] Yqsktuckuf0576 [place] [address]Dr. Douglas Tucker RBC 4.20 106/ul Normal 4.20-5.40 [facility] Comment on above: Performed By: #### C BC ####[facility] Bmpirxmvrx2667 [place] [address]Dr. Douglas Tucker WBC 6.6 103/ul Normal 4.0-11.0 [facility] Comment on above: Performed By: #### C BC ####[facility] Syfrywpris4207 [place] [address]Dr. Douglas Tucker MAGNESIUMon 10-29-2021 Magnesium [Mass/Vol] 2.1 mg/dL Normal 1.8-2.4 [facility] Comment on above: Performed By: #### M Javon, CMP ####[facility] Ojtqufgady[address] [place], [place] [address]Dr. Douglas Tucker PROF 14(COMP METB)on 022 Albumin [Mass/Vol] 3.6 g/dL Normal 3.4-5.0 [facility] Comment on above: Performed By: #### Alyse Alejandro, CMP ####[facility] Vkjnaayagx[address] [place], [place] [address]Dr. Douglas Tucker Albumin/Globulin [Mass ratio] 1.2 {ratio} Normal [facility] Comment on above: Performed By: #### M Javon, CMP ####[facility] Quoiiellle40[address] [place], [place] [address]Dr. Douglas Tucker ALP [Catalytic activity/Vol] 61 U/L Normal 46-116 [facility] Comment on above: Performed By: #### M G, CMP ####[facility] Eaeihwgbhy[address] [place] [address]Dr. Douglas Tucker ALT [Catalytic activity/Vol] 25 U/L Normal 14-59 [facility] Comment on above: Performed By: #### M G, CMP ####[facility] Aqqurnamvh350[address] [place] [address]Dr. Douglas Tucker Anion gap [Moles/Vol] 12.4 mmol/L Normal [facility] Comment on above: Performed By: #### M G, CMP ####[facility] Ravfyifbiv4049 [place] [address]Dr. Douglas Tucker AST [Catalytic activity/Vol] 23 U/L Normal 15-37 [facility] Comment on above: Performed By: #### M G, CMP ####[facility] Zfyetzshka[address] [place], [place] [address]Dr. Douglas Tucker Bilirubin [Mass/Vol] 0.3 mg/dL Normal 0.2-1.0 [facility] Comment on above: Performed By: #### M G, CMP ####[facility] Skksqbbfov[address] [place], [place] [address]Dr. Douglas Tucker Calcium [Mass/Vol] 8.5 mg/dL Normal 8.5-10.1 [facility] Comment on above: Performed By: #### M G, CMP ####[facility] Gmqvyhkyva[address] [place], [place] [address]Dr. Douglas Tucker Chloride [Moles/Vol] 106 mmol/L Normal 98-107 [facility] Comment on above: Performed By: #### M G, CMP ####[facility] Ednbjisrni[address] [place], [place] [address]Dr. Douglas Tucker CO2 [Moles/Vol] 22.8 mmol/L Normal 21.0-32.0 [facility] Comment on above: Performed By: #### Alyse G, CMP ####[facility] Cgejncaahe[address] [place], [place] [address]Dr. Douglas Tucker Creatinine [Mass/Vol] 0.76 mg/dL Normal 0.55-1.02 [facility] Comment on above: Performed By: #### M G, CMP ####[facility] Gvkzhepytw[address] [place], [place] [address]Dr. Douglas Garrett EGFR-AF IVORIAN >60 Normal >=60 [facility] Comment on above: Performed By: #### M G, CMP ####[facility] Vxewppqbox[address] [place], [place] [address]Dr. Douglas Garrett EGFR-NON AF IVORIAN >60 Normal >=60 [facility] Comment on above: Performed By: #### M G, CMP ####[facility] Xlmqukuxrw6056 [place] [address]Dr. Douglas Tucker Globulin (S) [Mass/Vol] 3.0 g/dL Normal [facility] Comment on above: Performed By: #### M G, CMP ####[facility] Fhauswuloh9696 [place] [address]Dr. Douglas Tucker Glucose [Mass/Vol] 110 mg/dL Critically high 74-106 [facility] Comment on above: Performed By: #### M G, CMP ####[facility] Hrqwfkcrgj5[address] [place] [address]Dr. Douglas Tucker Potassium [Moles/Vol] 4.2 mmol/L Normal 3.5-5.1 [facility] Comment on above: Performed By: #### M G, CMP ####[facility] Pwvykxlgsv[address] [place], [place] [address]Dr. Douglas Tucker Protein [Mass/Vol] 6.6 g/dL Normal 6.4-8.2 [facility] Comment on above: Performed By: #### M G, CMP ####[facility] Gjxswclquy[address] [place], [place] [address]Dr. Douglas Tucker Sodium [Moles/Vol] 137 mmol/L Normal 136-145 [facility] Comment on above: Performed By: #### M G, CMP ####[facility] Sjjunqooyq65[address] [place] [address]Dr. Douglas Tucker Urea nitrogen [Mass/Vol] 12.0 mg/dL Normal 7.0-18.0 [facility] Comment on above: Performed By: #### M G, CMP ####[facility] Pz[address]rdykte[address] [place] [address]Dr. Douglas Garrett Urea nitrogen/Creatinine [Mass ratio] 15.8 mg/mg Normal [facility] Comment on above: Performed By: #### M G, CMP ####[facility] Hvzxpoidrs[address] [place], [place] [address]Dr. Douglas Garrett ALLIED HEALTHon 03-07-2021 [facility] HNO ID: [id number] Author: RT Pati(Jd) Service: Radiology Author Type: [...] IV DATA: Not applicable SIGNED BY: RT Pati(Jd) March 07, 2021 5:32 PM [facility] 03-07-2021 [facility] HNO ID: [id number] Author: Rosalie Haile MD Service: ? Author [...] known as: ZANAFLEX Rosalie Haile MD Normal [facility] HISTORY PHYSICALon HISTORY PHYSICAL HNO ID: [id number] Author: Rosalie Haile MD Service: ? Author Type: Physician Type: HANDP Filed: 03/11/2021 7:31 PM Note Text: [facility] SULLY ENRIQUEZ : 1990 AGE: 31 SEX: F CSN: [id number] [facility]: [facility] LOCATION: [facility] ATTENDING PHYSICIAN: Rosalie Haile M.D. ? ? DATE OF SERVICE: 03/06/2021 ? ? SUBJECTIVE: Patient with a history of diabetes and obesity. Admitted to the hospital with seizure. ?This is a 31 year old female with a hx of seizures, diabetes, anxiety, and conversion disorder, who reportedly had a seizure at the [place] [facility]. She and her boyfriend had just [...] output data in the 24 hours ending 03/06/212239 DATA: CBC: Recent Labs 03/06/21 0234 WBC [...] 40.1 WBC (k/uL) Date Value 03/06/2021 6.79 [facility] consultants notes reviewed Most recent images Reviewed Last EKG/Rhythm reviewed 03/06/210 03/06/21209903/06/21221103/06/212226 BP: 123/74 118/64 115/72 Pulse: 68 62 63 Resp: 18 Temp: 36.8 ?C (98.2 ?F) TempSrc: [...] goiter No carotid bruits. Rosalie Haile MD [facility] MRI BRAIN WO IVCONon 021 MRI BRAIN WO IVCON * * *Final Report* * * DATE OF EXAM: Mar 07 2021 5:42PM [facility] 0294 - MRI BRAIN WO IVCON / PROCEDURE REASON: Dural venous sinus thrombosis suspected * * * * Physician Interpretation * * * * EXAMINATION: MRI BRAIN WO IVCON, MRV BRAIN WO IVCON CLINICAL HISTORY: Clinical concern for dural venous sinus thrombosis. Headache. TECHNIQUE: Routine noncontrast MRI protocol including diffusion images. Ooqq-yp-lqlqvv MRV brain with post-processing performed at the [...] intravenous contrast. Patent major dural venous sinuses. 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 Eboq-hj-iqlsol MRV brain with post-processing performed at the [...] intravenous contrast. Patent major dural venous sinuses. 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 Author Type: Registered Nurse Type: Nursing Progress Note Filed: 03/07/2021 11:35 PM Note Text: Nursing Progress Note Patient Name: Sully Enriquez Patient Location: Pt discharged, transferred via wheelchair to exit where was picking her up. IV/tele removed. All belongings accounted for. This note was completed by: Toya Pompa [facility] NURSING PROG HNO ID: [id number] Author: Cordelia Faye RN Service: Nursing Author Type: Registered Nurse Type: Nursing Progress Note Filed: 03/07/2021 5:15 PM Note Text: Nursing Progress Note Patient Name: Sully Enriquez Patient Location: Daily Note: 0830 Pt AANDOx3.Follows commands. No seizure activity. Awaiting MRI of the brain. C/o of 7/10 pressure generalized ESPINOZA. Medicated w/ ESPINOZA cocktail. Denies CP, SOB, dizziness, blurred or double vision. LS clear. RA. SR on telemetry. Abdomen soft and non tender. Pt reports having several sot BMs during the day today. I soft small brown BM witnessed. Denies abdominal pain. Denies N/V. Non pitting edema BLE. Call light within reach. [facility] 1630 pt asks to be d/c today and have MRI as OP per neurology recs. Dr Haile paged. 1705 pt to MRI. Medicated with 25 mg of Atarax prior to MRI. [address] Haile to wait for MRI results. If neurology signs off after the MRI is resulted will reach dr Haile for d/c orders. [facility] This note was completed by: Cordelia Faye [facility] NURSING PROG HNO ID: [id number] Author: Breanne Reis RN Service: ? Author Type: Registered Nurse Type: Nursing Progress Note Filed: 03/07/2021 6:30 AM Note Text: Nursing Progress Note Patient Name: Sully Enriquez Patient Location: [place] [address] [address] Daily Note : Assumed care of pt [...] This note was completed by: Smiley Raymundo [facility] NURSING PROG HNO ID: [id number] Author: Yoselin Cui RN Service: Nursing Author Type: Registered Nurse Type: Nursing Progress Note Filed: 03/06/2021 10:38 PM Note Text: Nursing Progress Note Patient Name: Sully Enriquez Patient Location: PK/ Transfer Note: Patient transferred into room/unit PKT-12 in stable condition. Actions taken: Alert and oriented x 3. Patient was an ED hold. Admission database completed. Call light in reach. Smiley [facility] will do physical and skin assessments and complete NPR and skin flow sheets. This note was completed by: Yoselin Cui [facility] 03-06-2021 [facility] HNO ID: [id number] Author: HAWA [place]) Service: ? Author Type: [...] RT Sanam(R) March 06, 2021 2:45 AM [facility] CBC and Differentialon 03-06 Abs Baso 0.04 k/uL Normal <0.11 [facility] Comment on above: Performed By: #### C K, ALCO, CBCDIF, CMP, MG1 ####[facility] [place], [place] [phone] Abs [place] 0.55 k/uL Normal <0.87 [facility] Comment on above: Performed By: #### C K, ALCO, CBCDIF, CMP, MG1 ####[place] [address] Abs Neut 3.17 k/uL Normal 1.45-7.50 [facility] Comment on above: Performed By: #### C K, ALCO, CBCDIF, CMP, MG1 ####[place] [address] Absolute nRBC <0.01 Normal <0.01 [facility] Comment on above: Performed By: #### C K, ALCO, CBCDIF, CMP, MG1 ####[place] [address] Basophils/100 WBC (Bld) 0.6 % Normal [facility] Comment on above: Performed By: #### C K, ALCO, CBCDIF, CMP, MG1 ####[place] [address] DTYPE Auto Diff Normal [facility] Comment on above: Performed By: #### C K, ALCO, CBCDIF, CMP, MG1 ####[place] [address] Eosinophils (Bld) [#/Vol] 0.17 10*3/uL Normal <0.46 [facility] Comment on above: Performed By: #### C K, ALCO, CBCDIF, CMP, MG1 ####[place] [address] Eosinophils/100 WBC (Bld) 2.5 % Normal [facility] Comment on above: Performed By: #### C K, ALCO, CBCDIF, CMP, MG1 ####[place] [address] Erythrocyte distribution width (RBC) [Ratio] 12.0 % Normal 11.5-15.0 [facility] Comment on above: Performed By: #### C K, ALCO, CBCDIF, CMP, MG1 ####[place] [phone] Hematocrit (Bld) [Volume fraction] 40.1 % Normal 36.0-46.0 [facility] Comment on above: Performed By: #### C K, ALCO, CBCDIF, CMP, MG1 ####[place] [phone] Hemoglobin (Bld) [Mass/Vol] 13.2 g/dL Normal 11.5-15.5 [facility] Comment on above: Performed By: #### C K, ALCO, CBCDIF, CMP, MG1 ####[place] [phone] Lymphocytes (Bld) [#/Vol] 2.85 10*3/uL Normal 1.00-4.00 [facility] Comment on above: Performed By: #### C K, ALCO, CBCDIF, CMP, MG1 ####[place] [phone] Lymphocytes/100 WBC (Bld) 42.0 % Normal [facility] Comment on above: Performed By: #### C K, ALCO, CBCDIF, CMP, MG1 ####[place] [phone] MCH 31.8 pG Normal 26.0-34.0 [facility] Comment on above: Performed By: #### C K, ALCO, CBCDIF, CMP, MG1 ####[place] [phone] MCHC (RBC) [Mass/Vol] 32.9 g/dL Normal 30.5-36.0 [facility] Comment on above: Performed By: #### C K, ALCO, CBCDIF, CMP, MG1 ####[place] [phone] MCV (RBC) [Entitic vol] 96.6 fL Normal 80.0-100.0 [facility] Comment on above: Performed By: #### C K, ALCO, CBCDIF, CMP, MG1 ####[place] [phone] Monocytes/100 WBC (Bld) 8.1 % Normal [facility] Comment on above: Performed By: #### C K, ALCO, CBCDIF, CMP, MG1 ####[place] [phone] Neutrophils/100 WBC (Bld) 46.8 % Normal [facility] Comment on above: Performed By: #### C K, ALCO, CBCDIF, CMP, MG1 ####[place] [phone] NRBCs 0.0 /100 WBC Normal 0 [facility] Comment on above: Performed By: #### C K, ALCO, CBCDIF, CMP, MG1 ####[place] [phone] Platelet mean volume (Bld) [Entitic vol] 10.7 fL Normal 9.0-12.7 [facility] Comment on above: Performed By: #### C K, ALCO, CBCDIF, CMP, MG1 ####[place] [phone] Platelets (Bld) [#/Vol] 183 10*3/uL Normal 150-400 [facility] Comment on above: Performed By: #### C K, ALCO, CBCDIF, CMP, MG1 ####[place] [phone] RBC (Bld) [#/Vol] 4.15 10*6/uL Normal 3.90-5.20 [facility] Comment on above: Performed By: #### C K, ALCO, CBCDIF, CMP, MG1 ####[place] [phone] WBC (Bld) [#/Vol] 6.79 10*3/uL Normal 3.70-11.00 [facility] Comment on above: Performed By: #### C K, ALCO, CBCDIF, CMP, MG1 ####[facility] [place], [place] [phone] CKon 03-06-2021 CK [Catalytic activity/Vol] 103 U/L Normal 30-220 [facility] Comment on above: Performed By: #### C K, ALCO, CBCDIF, CMP, MG1 ####[facility] [place], [place] [phone] CONSULTon 03-06-2021 CONSULT HNO ID: [id number] Author: Saravanan Yancey MD Service: Neurology General Author Type: Resident Type: Consults Filed: 03/06/2021 5:10 PM Note Text: ----- Attestation signed by Tim Sanches MD at 03/06/2021 9:16 PM [facility] STAFF PHYSICIAN NOTE OF PERSONAL [...] her had just deplaned coming back from [employer] x 3 days and she had not [...] [place] who is a family doctor in [facility], and she has noted hx of [...] Facility-Administered Medica (more content not included)... Normal [facility] CT BRAIN WO IVCONon 03-06-20 21 [...] Other: No depressed skull fracture is seen. Auditor (topogram) images: Non-diagnostic. IMPRESSION: No CT evidence of an acute intracranial abnormality. Other: details above. Biochemistry Professor: [facility] Transcribe Date/Time: Mar 06 2021 3:13A Dictated by : JENN MORENO MD This examination was interpreted and the report reviewed and electronically signed by: JENN MORENO MD on Mar 06 2021 3:15AM EST [id number] Normal [facility] Comp Metabolic Panelon 03-06 Albumin [Mass/Vol] 4.6 g/dL Normal 3.5-5.0 [facility] Comment on above: Performed By: #### C K, ALCO, CBCDIF, CMP, MG1 ####[facility] [place], [place] [phone] ALP [Catalytic activity/Vol] 67 U/L Normal 34-123 [facility] Comment on above: Performed By: #### C K, ALCO, CBCDIF, CMP, MG1 ####[place] [id number] [place], [place] [phone] ALT [Catalytic activity/Vol] 15 U/L Normal 0-45 [facility] Comment on above: Performed By: #### C K, ALCO, CBCDIF, CMP, MG1 ####[address] [phone] Anion gap [Moles/Vol] 10 mmol/L Normal 9-18 [facility] Comment on above: Performed By: #### C K, ALCO, CBCDIF, CMP, MG1 ####[place] [phone] AST [Catalytic activity/Vol] 15 U/L Normal 7-40 [facility] Comment on above: Performed By: #### C K, ALCO, CBCDIF, CMP, MG1 ####[place] [phone] Bilirubin [Mass/Vol] 0.2 mg/dL Normal 0.2-1.3 [facility] Comment on above: Performed By: #### C K, ALCO, CBCDIF, CMP, MG1 ####[place] [phone] Calcium [Mass/Vol] 9.3 mg/dL Normal 8.5-10.5 [facility] Comment on above: Performed By: #### C K, ALCO, CBCDIF, CMP, MG1 ####[place] [phone] Chloride [Moles/Vol] 106 mmol/L Normal 98-110 [facility] Comment on above: Performed By: #### C K, ALCO, CBCDIF, CMP, MG1 ####[place] [phone] CO2 [Moles/Vol] 25 mmol/L Normal 23-32 [facility] Comment on above: Performed By: #### C K, ALCO, CBCDIF, CMP, MG1 ####[place] [phone] Creatinine [Mass/Vol] 0.99 mg/dL Normal 0.70-1.40 [facility] Comment on above: Performed By: #### C K, ALCO, CBCDIF, CMP, MG1 ####[place] [phone] eGFR- Amer. >60 Normal >60 [facility] Comment on above: Performed By: #### C K, ALCO, CBCDIF, CMP, MG1 ####[place] [phone] eGFR-All Other Races >60 Normal >60 [facility] Comment on above: Result Comment: eGFR [...] #### C K, ALCO, CBCDIF, CMP, MG1 ####[place] [phone] Glucose [Mass/Vol] 103 mg/dL High 65-100 [facility] Comment on above: Performed By: #### C K, ALCO, CBCDIF, CMP, MG1 ####[place] [phone] Potassium [Moles/Vol] 3.9 mmol/L Normal 3.5-5.0 [facility] Comment on above: Performed By: #### C K, ALCO, CBCDIF, CMP, MG1 ####[place] [phone] Protein [Mass/Vol] 7.1 g/dL Normal 6.0-8.4 [facility] Comment on above: Performed By: #### C K, ALCO, CBCDIF, CMP, MG1 ####[place] [phone] Sodium [Moles/Vol] 141 mmol/L Normal 132-148 [facility] Comment on above: Performed By: #### C K, ALCO, CBCDIF, CMP, MG1 ####[facility] [place], [place] [phone] Urea nitrogen [Mass/Vol] 12 mg/dL Normal 12-13 [facility] Comment on above: Performed By: #### C K, ALCO, CBCDIF, CMP, MG1 ####[facility] [place], [place] [id number] ED NOTEon 03-06-2021 ED NOTE HNO ID: [id number] Author: Isabell Olivares RN Service: ? Author Type: Registered Nurse Type: ED Notes Filed: 03/06/2021 9:38 PM Note Text: Report to JUS Reis. [facility] ED NOTE HNO ID: [id number] Author: Isabell Olivares RN Service: ? Author Type: Registered Nurse Type: ED Notes Filed: 03/06/2021 7:16 PM Note Text: Pt up to bedside commode in room with steady gait, pt back to bed, siderails up x 2. [facility] ED NOTE HNO ID: [id number] Author: Isabell Olivares RN Service: ? Author Type: Registered Nurse Type: ED Notes Filed: 03/06/2021 6:32 PM Note Text: Meal tray arrives at the bedside. [facility] ED NOTE HNO ID: [id number] Author: Isabell Olivares RN Service: ? Author Type: Registered Nurse Type: ED Notes Filed: 03/06/2021 6:02 PM Note Text: Pt encouraged to call for dinner tray. Pt reports her headache has improved. [facility] ED NOTE HNO ID: [id number] Author: Isabell Olivares RN Service: ? Author Type: Registered Nurse Type: ED Notes Filed: 03/06/2021 5:18 PM Note Text: Pt states much improvement to her headache, resting in the room with her family, lights dimmed for comfort. [facility] ED NOTE HNO ID: [id number] Author: Isabell Olivares RN Service: ? Author Type: Registered Nurse Type: ED Notes Filed: 03/06/2021 2:48 PM Note Text: Pt reports no improvement in her headache, pt resting with lights off and warm blankets with family at bedside. No new orders at this time. Neurology paged. [facility] ED NOTE HNO ID: [id number] Author: Isabell Olivares RN Service: ? Author Type: Registered Nurse Type: ED Notes Filed: 03/06/2021 2:25 PM Note Text: MRI form faxed to MRI. Pt states she has claustrophobia with MRI, Neurology paged. [facility] ED NOTE HNO ID: [id number] Author: Isabell Olivares RN Service: ? Author Type: Registered Nurse Type: ED Notes Filed: 03/06/2021 2:04 PM Note Text: MRI Screening form given to the patient. [facility] ED NOTE HNO ID: [id number] Author: Isabell Olivares RN Service: ? Author Type: Registered Nurse Type: ED Notes Filed: 03/06/2021 1:56 PM Note Text: Pt assisted onto and off the bedpan. [facility] ED NOTE HNO ID: [id number] Author: Isabell Olivares RN Service: ? Author Type: Registered Nurse Type: ED Notes Filed: 03/06/2021 1:56 PM Note Text: Pt accucheck 100, meal tray at bedside. [facility] ED NOTE HNO ID: [id number] Author: Isabell Olivares RN Service: ? Author Type: Registered Nurse Type: ED Notes Filed: 03/06/2021 1:39 PM Note Text: Neurology at bedside with the patient. [facility] ED NOTE HNO ID: [id number] Author: Isabell Olivares RN Service: ? Author Type: Registered Nurse Type: ED Notes Filed: 03/06/2021 1:26 PM Note Text: Verbal order from Dr. Haile for 25mg PO benadryl [facility] ED NOTE HNO ID: [id number] Author: Isabell Olivares RN Service: ? Author Type: Registered Nurse Type: ED Notes Filed: 03/06/2021 11:20 AM Note Text: Pt resting in bed with seizure pads in place, pt family member sleeping in the bed with the patient, pt family member asked to not be in the bed with the patient for patient safety. [facility] ED NOTE HNO ID: [id number] Author: Jade Forte RN Service: ? Author Type: Registered Nurse Type: ED Notes Filed: 03/06/2021 11:13 AM Note Text: Patient report given to JUS Whyte [facility] ED NOTE HNO ID: [id number] Author: Isabell Olivares RN Service: ? Author Type: Registered Nurse Type: ED Notes Filed: 03/06/2021 11:02 AM Note Text: Assumed care of the patient at this time, received report from JUS Hansen. Plan of Care: - maintain patient comfort, safety and privacy - monitor for changes in condition - bed locked, low position, siderails up - call light within reach [facility] ED NOTE HNO ID: [id number] Author: Jade Forte RN Service: ? Author Type: Registered Nurse Type: ED Notes Filed: 03/06/2021 11:05 AM Note Text: Patient reports continuing to have headache. Spouse also reports had another few second seizure. House paged. [facility] ED NOTE HNO ID: [id number] Author: Jade Forte RN Service: ? Author Type: Registered Nurse Type: ED Notes Filed: 03/06/2021 10:11 AM Note Text: Called lab, breakfast tray ordered [facility] ED NOTE HNO ID: [id number] Author: Jade Forte RN Service: ? Author Type: Registered Nurse Type: ED Notes Filed: 03/06/2021 8:43 AM Note Text: Patient placed on bedpan. Patient and sheets soiled. Patient cleaned, linens changed [facility] ED NOTE HNO ID: [id number] Author: Jade Forte RN Service: ? Author Type: Registered Nurse Type: ED Notes Filed: 03/06/2021 8:31 AM Note Text: Answered patient call light. Patient requesting bedpan. Patient reports patient just had seizure . House paged and returned call. [facility] ED NOTE HNO ID: [id number] Author: Jade Forte RN Service: ? Author Type: Registered Nurse Type: ED Notes Filed: 03/06/2021 7:39 AM Note Text: Patient resting in bed. Declines breakfast at this time. Reports headache and nausea. House paged. [facility] ED NOTE HNO ID: [id number] Author: Jade Forte RN Service: ? Author Type: Registered Nurse Type: ED Notes Filed: 03/06/2021 7:07 AM Note Text: Patient report received from JUS Schuler [facility] ED PROV NOTEon 03-06-2021 ED PROV NOTE HNO ID: [id number] Author: Adeel Mauro MD Service: Hospital Medicine [...] (*) Negative (more content not included)... Normal [facility] Ethanolon 03-06-2021 Ethanol [Mass/Vol] mg/dL Normal <11 [facility] Comment on above: Performed By: #### C K, ALCO, CBCDIF, CMP, MG1 ####[place] [phone] Expedited [id number] 03-06-20 21 SARS-CoV-2 (COVID-19) RNA AZ+probe Ql (Unsp spec) UPPER RESPIRATORY TRACT SWAB Normal [facility] Comment on above: Performed By: #### E XCOVD #### [place] [phone] SARS-CoV-2 (COVID-19) RNA AZ+probe Ql (Unsp spec) Negative for COVID19 (SARS CoV2) by RT-PCR or equivalent method. Normal Negative for COVID19 (SARS CoV2) by RT-PCR or equivalent method. [facility] Comment on above: Result Comment: This test has been authorized by FDA under an Emergency Use Authorization (EUA). Performed By: #### E XCOVD #### [place] [phone] HCG Qual, Urineon 03-06-2021 Beta HCG ( test) Ql (U) Negative Normal Negative [facility] Comment on above: Performed By: #### U HCG ####[place] [phone] HISTORY PHYSICALon HISTORY PHYSICAL HNO ID: [id number] Author: Adonis Mahoney MD Service: General Internal Medicine Author Type: Physician Type: HANDP Filed: 03/06/2021 6:51 AM Note Text: HISTORY AND PHYSICAL EXAMINATION * SERVICE DATE: 03/06/2021 PRIMARY CARE PHYSICIAN: Keli Strickland NP Subjective CHIEF COMPLAINT: Seizures HPI: This is a 31 year old female with a hx of seizures, diabetes, anxiety, and conversion disorder, who reportedly had a seizure at the [place] [facility]. She and her boyfriend had just [...] March 06, 2021 TIME: 6:08 AM Normal [facility] Magnesiumon 03-06-2021 Magnesium [Mass/Vol] 2.1 mg/dL Normal 1.7-2.6 [facility] Comment on above: Performed By: #### C K, ALCO, CBCDIF, CMP, MG1 ####[facility] [place], [place] [phone] TSHon 03-06-2021 TSH Qn 3.170 m[IU]/L Normal 0.270-4.200 [facility] Comment on above: Result Comment: If t he patient is , TSH reference range varies by gestational period: First Trimester (weeks 9-12): 0.180-2.990 mcIU/mL Second Trimester: 0.110-3.980 mcIU/mL Third Trimester: 0.480-4.710 mcIU/mL Dawson Mcleod et al. A Practical Approach for the Verifications and Determination of Site- and Trimester-Specific Reference Intervals for Thyroid Function tests in . Thyroid, 2019:29:3:412-420. Jimmie Greenfield, et al. 2017 Guidelines of the [place] Thyroid Association for the Diagnosis and Management of Thyroid Disease during and the . Thyroid, 2017:27:3:315-389. Performed By: #### T SH ####[place] [id number] Toxicology Screen,Uron 03-06 Amphetamines, Urine Negative Normal Negative [facility] Comment on above: Result Comment: Cuto ff threshold at 1000 ng/mL. Performed By: #### U TOX2, UAWMIC #### [place] [address] Barbiturates, Urine Negative Normal Negative [facility] Comment on above: Result Comment: Cuto ff threshold at 200 ng/mL. Performed By: #### U TOX2, UAWMIC #### [place] [address] Benzodiazepines, Ur Negative Normal Negative [facility] Comment on above: Result Comment: Cuto ff threshold at 200 ng/mL. Performed By: #### U TOX2, UAWMIC #### [place] [address] Cannabinoids, Urine Negative Normal Negative [facility] Comment on above: Result Comment: Cuto ff threshold at 50 ng/mL. Performed By: #### U TOX2, UAWMIC #### [place] [address] Cocaine, Urine Negative Normal Negative [facility] Comment on above: Result Comment: Cuto ff threshold at 300 ng/mL. Performed By: #### U TOX2, UAWMIC #### [place] [address] Ethanol, Urine <11 Normal <11 [facility] Comment on above: Performed By: #### U TOX2, UAWMIC #### [place] [address] Opiates, Urine Negative Normal Negative [facility] Comment on above: Result Comment: Cuto ff threshold at 300 ng/mL. Performed By: #### U TOX2, UAWMIC #### [address] Oxycodone, Urine Negative Normal Negative [facility] Comment on above: Result Comment: Cuto [...] on the same specimen through Client Services ([phone]) if contacted within 48 hours of initial testing. [1]Substance Abuse and Mental Health Services Administration (2012). Clinical Drug Testing in Primary Care Technical Assistance Publication Series 32. Department of Health and Human Services, [place], p.10. Performed By: #### U TOX2, UAWMIC #### [place] [address] Phencyclidine, Urine Negative Normal Negative [facility] Comment on above: Result Comment: Cuto ff threshold at 25 ng/mL. Performed By: #### U TOX2, UAWMIC #### [place] [address] Urinalysis with Microscopico n 03-06-2021 Bacteria Rare Critically abnormal Negative [facility] Comment on above: Performed By: #### U TOX2, UAWMIC #### [address] Bilirubin, Urine Negative Normal Negative [facility] Comment on above: Performed By: #### U TOX2, UAWMIC #### [place] [phone] Clarity (U) Clear Normal Clear [facility] Comment on above: Performed By: #### U TOX2, UAWMIC #### [place] [phone] Color (U) Colorless Critically abnormal Yellow [facility] Comment on above: Performed By: #### U TOX2, UAWMIC #### [place] [address] Comments SEE COMMENT Normal [facility] Comment on above: Result Comment: Micr oscopic Examination Performed Performed By: #### U TOX2, UAWMIC #### [place] [address] Epithelial cells LM Ql (Urine sed) SEE COMMENT Critically abnormal Negative [facility] Comment on above: Result Comment: Rare Squamous Epithelial Cells Performed By: #### U TOX2, UAWMIC #### [place] [address] Glucose Ql (U) Negative Normal Negative [facility] Comment on above: Performed By: #### U TOX2, UAWMIC #### [place] [address] Hemoglobin/Blood,Ur Negative Normal Negative [facility] Comment on above: Performed By: #### U TOX2, UAWMIC #### [place] [address] Ketones Ql (U) Negative Normal Negative [facility] Comment on above: Performed By: #### U TOX2, UAWMIC #### [place] [address] Leukest Negative Normal Negative [facility] Comment on above: Performed By: #### U TOX2, UAWMIC #### [place] [address] Nitrite Ql (U) Negative Normal Negative [facility] Comment on above: Performed By: #### U TOX2, UAWMIC #### [place] [address] pH (U) 7.0 [pH] Normal 5.0-8.0 [facility] Comment on above: Performed By: #### U TOX2, UAWMIC #### [place] [phone] Protein, Urine Negative Normal Negative [facility] Comment on above: Performed By: #### U TOX2, UAWMIC #### [place] [phone] RBC Rare Critically abnormal Negative [facility] Comment on above: Performed By: #### U TOX2, UAWMIC #### [place] [phone] Specific [place], Ur 1.007 Normal 1.005-1.030 [facility] Comment on above: Performed By: #### U TOX2, UAWMIC #### [place] [phone] Urobilinogen (U) [Mass/Vol] Negative Normal Negative [facility] Comment on above: Performed By: #### U TOX2, UAWMIC #### [place] [phone] WBC Rare Critically abnormal Negative [facility] Comment on above: Performed By: #### U TOX2, UAWMIC #### [place] [phone] Vital Signs Date Time Vital Sign Value Performing Clinician Facility 10-18-2024 13:37-0400 Body height 165.1 cm Mario Pee DO Work Phone: [facility] 10-18-2024 13:37-0400 Body mass index (BMI) [Ratio] 38.9 kg/m2 Mario Pee DO Work Phone: [facility] 10-18-2024 13:37-0400 Body temperature 98.4 [degF] Mario Pee DO Work Phone: [facility] 10-18-2024 13:37-0400 Body weight 106.14 kg [place] Pee DO Work Phone: [facility] 10-18-2024 13:37-0400 Diastolic blood pressure 86 mm[Hg] Mario Pee DO Work Phone: [facility] 10-18-2024 13:37-0400 Heart rate 77 /min Mario Pee DO Work Phone: [facility] 10-18-2024 13:37-0400 Respiratory rate 18 /min Mario Pee DO Work Phone: [facility] 10-18-2024 13:37-0400 SaO2% (BldA) [Mass fraction] 98 % Mario Pee DO Work Phone: [facility] 10-18-2024 13:37-0400 Systolic blood pressure 120 mm[Hg] Mario Pee DO Work Phone: [facility] 09-08-2024 13:53-0400 Body height 165.1 cm Jenifer FINNEGAN Work Phone: [facility] 09-08-2024 13:53-0400 Body mass index (BMI) [Ratio] 37.77 kg/m2 Jenifer FINNEGAN Work Phone: [facility] 09-08-2024 13:53-0400 Body weight 102.97 kg Jenifer FINNEGAN Work Phone: [facility] 08-27-2024 09:36-0400 Body height 165.1 cm Mario Pee DO Work Phone: [facility] 08-27-2024 09:36-0400 Body mass index (BMI) [Ratio] 38.9 kg/m2 Mario Pee DO Work Phone: [facility] 08-27-2024 09:36-0400 Body temperature 97.4 [degF] Mario Pee DO Work Phone: [facility] 08-27-2024 09:36-0400 Body weight 106.14 kg Mario Pee DO Work Phone: [facility] 08-27-2024 09:36-0400 Diastolic blood pressure 78 mm[Hg] Mario Pee DO Work Phone: [facility] 08-27-2024 09:36-0400 Heart rate 100 /min Mario Pee DO Work Phone: [facility] 08-27-2024 09:36-0400 Respiratory rate 18 /min Mario Pee DO Work Phone: [facility] 08-27-2024 09:36-0400 SaO2% (BldA) [Mass fraction] 97 % Mario Pee DO Work Phone: [facility] 08-27-2024 09:36-0400 Systolic blood pressure 136 mm[Hg] Mario Pee DO Work Phone: [facility] 07-26-2024 15:01-0400 Body height 165.1 cm [facility] 07-26-2024 15:01-0400 Body mass index (BMI) [Ratio] 39.4 kg/m2 [facility] 07-26-2024 15:01-0400 Body temperature 97.5 [degF] [facility] 07-26-2024 15:01-0400 Body weight 107.5 kg [facility] 07-26-2024 15:01-0400 Diastolic blood pressure 82 mm[Hg] [facility] 07-26-2024 15:01-0400 Heart rate 85 /min [facility] 07-26-2024 15:01-0400 Respiratory rate 18 /min [facility] 07-26-2024 15:01-0400 SaO2% (BldA) [Mass fraction] 97 % [facility] 07-26-2024 15:01-0400 Systolic blood pressure 120 mm[Hg] [facility] 06-25-2024 11:29-0500 Body mass index (BMI) [Ratio] 38.92 kg/m2 Prince Mon PA-C Work Phone: [facility] 06-25-2024 11:29-0500 Body temperature 97.81 [degF] Prince Mon PA-C Work Phone: [facility] 06-25-2024 11:29-0500 Body weight 106.1 kg Prince Mon PA-C Work Phone: [facility] 06-25-2024 11:29-0500 Diastolic blood pressure 87 mm[Hg] Prince Mon PA-C Work Phone: [facility] 06-25-2024 11:29-0500 Heart rate 69 /min Prince Mon PA-C Work Phone: [facility] 06-25-2024 11:29-0500 Respiratory rate 18 /min Prince Mon PA-C Work Phone: [facility] 06-25-2024 11:29-0500 SaO2% (BldA) [Mass fraction] 98 % Prince Mon PA-C Work Phone: [facility] 06-25-2024 11:29-0500 Systolic blood pressure 128 mm[Hg] Prince Mon PA-C Work Phone: [facility] 06-02-2024 08:06-0500 Body mass index (BMI) [Ratio] 38.27 kg/m2 Jen Radha DO Work Phone: [facility] 06-02-2024 08:06-0500 Body weight 104.33 kg Jen Garcia DO Work Phone: [facility] 06-02-2024 08:06-0500 Diastolic blood pressure 80 mm[Hg] Jen Garcia DO Work Phone: [facility] 06-02-2024 08:06-0500 Systolic blood pressure 122 mm[Hg] Jen Garcia DO Work Phone: [facility] 05-27-2024 14:52-0500 Body height 165.1 cm Lucero Belle DO Work Phone: [facility] 05-27-2024 14:52-0500 Body mass index (BMI) [Ratio] 38.27 kg/m2 Lucero Belle DO Work Phone: [facility] 05-27-2024 14:52-0500 Body weight 104.33 kg Lucero Belle DO Work Phone: [facility] 05-18-2024 13:41-0500 Diastolic blood pressure 72 mm[Hg] Brandon Alan [facility] 05-18-2024 13:41-0500 Heart rate 71 /min Brandon Alan MD Work Phone: [facility] 05-18-2024 13:41-0500 Respiratory rate 16 /min Brandon Alan MD Work Phone: [facility] 05-18-2024 13:41-0500 SaO2% (BldA) [Mass fraction] 100 % Brandon Alan MD Work Phone: [facility] 05-18-2024 13:41-0500 Systolic blood pressure 114 mm[Hg] Brandon Alan MD Work Phone: [facility] 05-18-2024 11:10-0500 Body height 165.1 cm Brandon Alan MD Work Phone: [facility] 05-18-2024 11:10-0500 Body mass index (BMI) [Ratio] 38.27 kg/m2 Brandon Alan MD [facility] 05-18-2024 11:10-0500 Body temperature 99 [degF] Brandon Alan MD [facility] 05-18-2024 11:10-0500 Body weight 104.33 kg Brandon Alan MD Work Phone: [facility] 05-11-2024 13:10-0500 Body height 165.1 cm Richelle Morataya MD Work Phone: [facility] 05-11-2024 13:10-0500 Body mass index (BMI) [Ratio] 39.11 kg/m2 Richelle Morataya MD Work Phone: [facility] 05-11-2024 13:10-0500 Body weight 106.59 kg Richelle Morataya MD Work Phone: [facility] 05-11-2024 13:10-0500 Diastolic blood pressure 88 mm[Hg] Richelle Morataya MD Work Phone: [facility] 05-11-2024 13:10-0500 Systolic blood pressure 128 mm[Hg] Richelle Morataya MD Work Phone: [facility] 05-07-2024 08:53-0500 Body height 165.1 cm [facility] 05-07-2024 08:53-0500 Body mass index (BMI) [Ratio] 39.1 kg/m2 [facility] 05-07-2024 08:53-0500 Body temperature 97.8 [degF] [facility] 05-07-2024 08:53-0500 Body weight 106.59 kg [facility] 05-07-2024 08:53-0500 Diastolic blood pressure 74 mm[Hg] [facility] 05-07-2024 08:53-0500 Heart rate 94 /min [facility] 05-07-2024 08:53-0500 Respiratory rate 18 /min [facility] 05-07-2024 08:53-0500 SaO2% (BldA) [Mass fraction] 97 % [facility] 05-07-2024 08:53-0500 Systolic blood pressure 116 mm[Hg] [facility] 04-26-2024 14:29-0500 Body height 165.1 cm [facility] 04-26-2024 14:29-0500 Body mass index (BMI) [Ratio] 38.2 kg/m2 [facility] 04-26-2024 14:29-0500 Body temperature 97.3 [degF] [facility] 04-26-2024 14:29-0500 Body weight 104.32 kg [facility] 04-26-2024 14:29-0500 Diastolic blood pressure 102 mm[Hg] [facility] 04-26-2024 14:29-0500 Heart rate 78 /min [facility] 04-26-2024 14:29-0500 Respiratory rate 18 /min [facility] 04-26-2024 14:29-0500 SaO2% (BldA) [Mass fraction] 99 % [facility] 04-26-2024 14:29-0500 Systolic blood pressure 140 mm[Hg] [facility] 03-12-2024 09:52-0500 Body height 165.1 cm Prince FINNEGAN-C Work Phone: [facility] 03-12-2024 09:52-0500 Body mass index (BMI) [Ratio] 38.77 kg/m2 Prince FINNEGAN-C Work Phone: [facility] 03-12-2024 09:52-0500 Body weight 105.69 kg Prince FINNEGAN-C Work Phone: [facility] 02-23-2024 14:38-0500 Body height 165.1 cm DO Mario Pee Work Phone: [facility] 02-23-2024 14:38-0500 Body mass index (BMI) [Ratio] 38.2 kg/m2 DO Mario Pee Work Phone: [facility] 02-23-2024 14:38-0500 Body temperature 96.8 [degF] DO Mario Pee Work Phone: [facility] 02-23-2024 14:38-0500 Body weight 104.32 kg DO Mario Pee Work Phone: [facility] 02-23-2024 14:38-0500 Diastolic blood pressure 72 mm[Hg] DO Mario Pee Work Phone: [facility] 02-23-2024 14:38-0500 Heart rate 84 /min DO Mario Pee Work Phone: [facility] 02-23-2024 14:38-0500 Respiratory rate 16 /min DO Mario Pee Work Phone: [facility] 02-23-2024 14:38-0500 SaO2% (BldA) [Mass fraction] 98 % DO Mario Pee Work Phone: [facility] 02-23-2024 14:38-0500 Systolic blood pressure 120 mm[Hg] DO Mario Pee Work Phone: [facility] 02-17-2024 12:59-0400 Body height 165.1 cm Leobardo Anderson MD Work Phone: [facility] 02-17-2024 12:59-0400 Body mass index (BMI) [Ratio] 38.78 kg/m2 Leobardo Anderson MD Work Phone: [facility] 02-17-2024 12:59-0400 Body weight 105.7 kg Leobardo Anderson MD Work Phone: [facility] 02-17-2024 12:59-0400 Diastolic blood pressure 81 mm[Hg] Leobardo Anderson MD Work Phone: [facility] 02-17-2024 12:59-0400 Heart rate 83 /min Leobardo Anderson MD Work Phone: [facility] 02-17-2024 12:59-0400 SaO2% (BldA) [Mass fraction] 100 % Leobardo Anderson MD Work Phone: [facility] 02-17-2024 12:59-0400 Systolic blood pressure 124 mm[Hg] Leobardo Anderson MD Work Phone: [facility] 01-30-2024 09:33-0400 Body height 165.1 cm Prince Mon PA-C Work Phone: [facility] 01-30-2024 09:33-0400 Body mass index (BMI) [Ratio] 38.11 kg/m2 Prince Rodberg PA-C Work Phone: [facility] 01-30-2024 09:33-0400 Body weight 103.87 kg Prince Mon PA-C Work Phone: [facility] 01-19-2024 14:27-0400 Body height 165.1 cm Prince Rodberg PA-C Work Phone: [facility] 01-19-2024 14:27-0400 Body mass index (BMI) [Ratio] 38.11 kg/m2 Prince Mon PA-C Work Phone: [facility] 01-19-2024 14:27-0400 Body weight 103.87 kg Prince Mon PA-C Work Phone: [facility] 01-06-2024 13:45-0400 Body height 165.[address] [facility] Comment on above: pt reported 01-06-2024 13:45-0400 Body mass index (BMI) [Ratio] 38.11 kg/m2 [facility] 01-06-2024 13:45-0400 Body weight 103.[address] [facility] Comment on above: pt reported 01-06-2024 13:45-0400 Heart rate 96 /min [facility] Comment on above: per pt counting method 12-26-2023 13:32-0400 Body height 165.1 cm Jackie Sutton MD Work Phone: [facility] 12-26-2023 13:32-0400 Body mass index (BMI) [Ratio] 38.61 kg/m2 Jackie Sutton MD Work Phone: [facility] 12-26-2023 13:32-0400 Body weight 105.23 kg Jackie Sutton MD Work Phone: [facility] 12-26-2023 10:24-0400 Body height 165.1 cm [facility] 12-26-2023 10:24-0400 Body mass index (BMI) [Ratio] 38.2 kg/m2 [facility] 12-26-2023 10:24-0400 Body temperature 97.3 [degF] [facility] 12-26-2023 10:24-0400 Body weight 104.32 kg [facility] 12-26-2023 10:24-0400 Diastolic blood pressure 88 mm[Hg] [facility] 12-26-2023 10:24-0400 Heart rate 102 /min [facility] 12-26-2023 10:24-0400 SaO2% (BldA) [Mass fraction] 98 % [facility] 12-26-2023 10:24-0400 Systolic blood pressure 122 mm[Hg] [facility] 11-12-2023 14:42-0400 Body height 165.1 cm [facility] 11-12-2023 14:42-0400 Body mass index (BMI) [Ratio] 38.7 kg/m2 [facility] 11-12-2023 14:42-0400 Body temperature 98.4 [degF] [facility] 11-12-2023 14:42-0400 Body weight 105.68 kg [facility] 11-12-2023 14:42-0400 Diastolic blood pressure 90 mm[Hg] [facility] 11-12-2023 14:42-0400 Heart rate 101 /min [facility] 11-12-2023 14:42-0400 Respiratory rate 18 /min [facility] 11-12-2023 14:42-0400 SaO2% (BldA) [Mass fraction] 98 % [facility] 11-12-2023 14:42-0400 Systolic blood pressure 120 mm[Hg] [facility] 10-08-2023 16:13-0400 Body height 165.1 cm [facility] 10-08-2023 16:13-0400 Body mass index (BMI) [Ratio] 39.7 kg/m2 [facility] 10-08-2023 16:13-0400 Body temperature 96.9 [degF] [facility] 10-08-2023 16:13-0400 Body weight 108.4 kg [facility] 10-08-2023 16:13-0400 Diastolic blood pressure 82 mm[Hg] [facility] 10-08-2023 16:13-0400 Heart rate 99 /min [facility] 10-08-2023 16:13-0400 Respiratory rate 16 /min [facility] 10-08-2023 16:13-0400 SaO2% (BldA) [Mass fraction] 97 % [facility] 10-08-2023 16:13-0400 Systolic blood pressure 132 mm[Hg] [facility] 08-27-2023 16:34-0400 Body height 165.1 cm DO Mario Pee Work Phone: [facility] 08-27-2023 16:34-0400 Body mass index (BMI) [Ratio] 39.7 kg/m2 DO Mario Pee Work Phone: [facility] 08-27-2023 16:34-0400 Body temperature 97.9 [degF] DO Mario Pee Work Phone: [facility] 08-27-2023 16:34-0400 Body weight 108.4 kg DO Mario Pee Work Phone: [facility] 08-27-2023 16:34-0400 Diastolic blood pressure 80 mm[Hg] DO Mario Pee Work Phone: [facility] 08-27-2023 16:34-0400 Heart rate 70 /min DO Mario Pee Work Phone: [facility] 08-27-2023 16:34-0400 Respiratory rate 18 /min DO Mario Pee Work Phone: [facility] 08-27-2023 16:34-0400 SaO2% (BldA) [Mass fraction] 98 % DO Mario Pee Work Phone: [facility] 08-27-2023 16:34-0400 Systolic blood pressure 130 mm[Hg] DO Mario Pee Work Phone: [facility] 08-07-2023 10:53-0400 Body height 165.1 cm [employer] PA-C Work Phone: [facility] 08-07-2023 10:53-0400 Body weight 105.23 kg Woowa Bros PA-C Work Phone: [facility] 07-07-2023 10:40-0400 Body temperature 98.2 [degF] DO Mario Pee Work Phone: [facility] 07-07-2023 10:40-0400 Diastolic blood pressure 74 mm[Hg] DO Mario Pee Work Phone: [facility] 07-07-2023 10:40-0400 Heart rate 70 /min DO Mario Pee Work Phone: [facility] 07-07-2023 10:40-0400 Respiratory rate 18 /min DO Mario Pee Work Phone: [facility] 07-07-2023 10:40-0400 SaO2% (BldA) [Mass fraction] 98 % DO Mario Pee Work Phone: [facility] 07-07-2023 10:40-0400 Systolic blood pressure 135 mm[Hg] DO Mario Pee Work Phone: [facility] 06-03-2023 18:00-0500 Diastolic blood pressure 75 mm[Hg] DO Mario Pee Work Phone: [facility] 06-03-2023 18:00-0500 Heart rate 72 /min DO Mario Pee Work Phone: [facility] 06-03-2023 18:00-0500 Respiratory rate 16 /min DO Mario Pee Work Phone: [facility] 06-03-2023 18:00-0500 SaO2% (BldA) [Mass fraction] 98 % DO Mario Pee Work Phone: [facility] 06-03-2023 18:00-0500 Systolic blood pressure 116 mm[Hg] DO Mario Pee Work Phone: [facility] 06-03-2023 13:34-0500 Body height 165.1 cm DO Mario Pee Work Phone: [facility] 06-03-2023 13:34-0500 Body temperature 98.2 [degF] DO Mario Pee Work Phone: [facility] 06-03-2023 13:34-0500 Body weight 103.87 kg DO Mario Pee Work Phone: [facility] 04-01-2023 14:00-0500 Body height 165.1 cm DO Mario Pee Work Phone: [facility] 04-01-2023 14:00-0500 Body weight 103.87 kg DO Mario Pee Work Phone: [facility] 04-01-2023 14:00-0500 Diastolic blood pressure 78 mm[Hg] DO Mario Pee Work Phone: [facility] 04-01-2023 14:00-0500 Systolic blood pressure 118 mm[Hg] DO Mario Pee Work Phone: [facility] 01-29-2023 10:15-0400 Body height 165.1 cm Mario Pee Other [employer] Other 01-29-2023 10:15-0400 Body mass index (BMI) [Ratio] 37.27 kg/m2 Mario Pee Other [employer] [facility] [employer] Other 01-29-2023 10:15-0400 Body temperature 96.9 [degF] Mario Pee Other [employer] Other 01-29-2023 10:15-0400 Body weight 101.61 kg Mario Pee Other [employer] Other 01-29-2023 10:15-0400 Diastolic blood pressure 70 mm[Hg] Mario Pee Other [employer] Other 01-29-2023 10:15-0400 Respiratory rate 20 /min Mario Pee Other [employer] Other 01-29-2023 10:15-0400 SaO2% (BldA) [Mass fraction] 99 % Mario Pee Other [employer] Other 01-29-2023 10:15-0400 Systolic blood pressure 110 mm[Hg] Mario Pee Other [employer] Other 12-12-2022 15:15-0400 Body height 165.1 cm Mario Pee Other [employer] Other 12-12-2022 15:15-0400 Body mass index (BMI) [Ratio] 37.77 kg/m2 Mario Pee Other [employer] Other 12-12-2022 15:15-0400 Body weight 102.97 kg Mario Pee Other [employer] Other 12-12-2022 15:15-0400 Diastolic blood pressure 60 mm[Hg] Mario Pee Other [employer] Other 12-12-2022 15:15-0400 Respiratory rate 20 /min Mario Pee Other [facility] [employer] Other 12-12-2022 15:15-0400 Systolic blood pressure 102 mm[Hg] Mario Pee Other [facility] [employer] Other 11-23-2022 01:18-0400 Diastolic blood pressure 83 mm[Hg] Kaylinn Dokken [facility] 11-23-2022 01:18-0400 Heart rate 64 /min Kaylinn Dokken [facility] 11-23-2022 01:18-0400 Mean blood pressure 94 mm[Hg] Kaylinn Dokken [facility] 11-23-2022 01:18-0400 Respiratory rate 19 /min Kaylinn Dokken [facility] 11-23-2022 01:18-0400 SaO2% (BldA) [Mass fraction] 97 % Kaylinn Dokken [facility] 11-23-2022 01:18-0400 Systolic blood pressure 117 mm[Hg] Kaylinn Dokken [facility] 11-23-2022 01:14-0400 Diastolic blood pressure 85 mm[Hg] Kaylinn Dokken [facility] 11-23-2022 01:14-0400 Heart rate 65 /min Kaylinn Dokken [facility] 11-23-2022 01:14-0400 Mean blood pressure 98 mm[Hg] Kaylinn Dokken [facility] 11-23-2022 01:14-0400 Respiratory rate 18 /min Kaylinn Dokken [facility] 11-23-2022 01:14-0400 SaO2% (BldA) [Mass fraction] 98 % Kaylinn Dokken [facility] 11-23-2022 01:14-0400 Systolic blood pressure 124 mm[Hg] Kaylinn Dokken [facility] 11-23-2022 00:00-0400 Body temperature 98.24 [degF] Kaylinn Dokken [facility] 11-23-2022 00:00-0400 Diastolic blood pressure 63 mm[Hg] Kaylinn Dokken [facility] 11-23-2022 00:00-0400 Mean blood pressure 77 mm[Hg] Kaylinn Dokken [facility] 11-23-2022 00:00-0400 SaO2% (BldA) [Mass fraction] 99 % Araceliylinn Dokken [facility] 11-23-2022 00:00-0400 Systolic blood pressure 105 mm[Hg] Araceliylinn Dokken [facility] 11-22-2022 22:00-0400 Heart rate 63 /min Araceliylinn Dokken [facility] 11-22-2022 20:59-0400 Body temperature 98.06 [degF] Araceliylinn Dokken [facility] 11-22-2022 20:59-0400 Respiratory rate 19 /min Araceliylinn Dokken [facility] 11-14-2022 13:15-0400 Body height 165.1 cm Mario Pee Other [employer] Other 11-14-2022 13:15-0400 Body mass index (BMI) [Ratio] 37.77 kg/m2 Mario Pee Other [employer] Other 11-14-2022 13:15-0400 Body temperature 97.8 [degF] Mario Pee Other [employer] Other 11-14-2022 13:15-0400 Body weight 102.97 kg Mario Pee Other [employer] Other 11-14-2022 13:15-0400 Diastolic blood pressure 76 mm[Hg] Mario Pee Other [employer] Other 11-14-2022 13:15-0400 Respiratory rate 20 /min Mario Pee Other [employer] Other 11-14-2022 13:15-0400 SaO2% (BldA) [Mass fraction] 97 % Mario Pee Other [employer] Other 11-14-2022 13:15-0400 Systolic blood pressure 100 mm[Hg] Mario Pee Other [employer] Other 10-15-2022 14:45-0400 Body height 165.1 cm Mario Pee Other [employer] Other 10-15-2022 14:45-0400 Body mass index (BMI) [Ratio] 38.44 kg/m2 Mario Pee Other [employer] Other 10-15-2022 14:45-0400 Body temperature 96 [degF] Mario Pee Other [employer] Other 10-15-2022 14:45-0400 Body weight 104.78 kg Mario Pee Other [employer] Other 10-15-2022 14:45-0400 Diastolic blood pressure 78 mm[Hg] Mario Pee Other [employer] Other 10-15-2022 14:45-0400 Respiratory rate 20 /min Mario Pee Other [employer] Other 10-15-2022 14:45-0400 SaO2% (BldA) [Mass fraction] 97 % Mario Pee Other [employer] Other 10-15-2022 14:45-0400 Systolic blood pressure 122 mm[Hg] Mario Pee Other [employer] Other 09-17-2022 13:00-0400 Body height 165.1 cm Mario Pee Other [employer] Other 09-17-2022 13:00-0400 Body mass index (BMI) [Ratio] 39.27 kg/m2 Mario Pee Other [employer] Other 09-17-2022 13:00-0400 Body temperature 96.9 [degF] Mario Pee Other [employer] Other 09-17-2022 13:00-0400 Body weight 107.05 kg Mario Pee Other [employer] Other 09-17-2022 13:00-0400 Diastolic blood pressure 78 mm[Hg] Mario Pee Other [facility] [employer] Other 09-17-2022 13:00-0400 Respiratory rate 20 /min Mario Pee Other [employer] [facility] [employer] Other 09-17-2022 13:00-0400 SaO2% (BldA) [Mass fraction] 96 % Mario Pee Other [facility] [employer] Other 09-17-2022 13:00-0400 Systolic blood pressure 124 mm[Hg] Mario Pee Other [facility] [employer] Other 05-02-2022 20:23-0500 Body temperature 98 [degF] DO Mario Pee Work Phone: [facility] 05-02-2022 20:23-0500 Diastolic blood pressure 78 mm[Hg] DO Mario Pee Work Phone: [facility] 05-02-2022 20:23-0500 Heart rate 104 /min DO Mario Pee Work Phone: [facility] 05-02-2022 20:23-0500 Respiratory rate 18 /min DO Mario Pee Work Phone: [facility] 05-02-2022 20:23-0500 SaO2% (BldA) [Mass fraction] 96 % DO Mario Pee Work Phone: [facility] 05-02-2022 20:23-0500 Systolic blood pressure 125 mm[Hg] DO Mario Pee Work Phone: [facility] 05-02-2022 16:20-0500 Inhaled oxygen flow rate 3 L/min DO Mario Pee Work Phone: [facility] 05-02-2022 06:52-0500 Body height 165.1 cm DO Mario Pee Work Phone: [facility] 05-02-2022 06:52-0500 Body mass index (BMI) [Ratio] 37.9 kg/m2 DO Mario Pee Work Phone: [facility] 05-02-2022 06:52-0500 Body weight 103.4 kg DO Mario Pee Work Phone: [facility] 04-24-2022 18:09-0500 Body height 165.1 cm DO Mario Pee Work Phone: [facility] 04-24-2022 18:09-0500 Body temperature 99.1 [degF] DO Mario Pee Work Phone: [facility] 04-24-2022 18:09-0500 Body weight 104.2 kg DO Mario Pee Work Phone: [facility] 04-24-2022 18:09-0500 Diastolic blood pressure 88 mm[Hg] DO Mario Pee Work Phone: [facility] 04-24-2022 18:09-0500 Heart rate 99 /min DO Mario Pee Work Phone: [facility] 04-24-2022 18:09-0500 Respiratory rate 19 /min DO Mario Pee Work Phone: [facility] 04-24-2022 18:09-0500 SaO2% (BldA) [Mass fraction] 96 % DO Mario Pee Work Phone: [facility] 04-24-2022 18:09-0500 Systolic blood pressure 124 mm[Hg] DO Mario Pee Work Phone: [facility] 04-17-2022 15:00-0500 Body height 165.1 cm Mario Pee Other [employer] Other 04-17-2022 15:00-0500 Body mass index (BMI) [Ratio] 38.77 kg/m2 Mario Pee Other [employer] Other 04-17-2022 15:00-0500 Body temperature 97.2 [degF] Mario Pee Other [employer] Other 04-17-2022 15:00-0500 Body weight 105.69 kg Mario Pee Other [employer] Other 04-17-2022 15:00-0500 Diastolic blood pressure 82 mm[Hg] Mario Pee Other [employer] Other 04-17-2022 15:00-0500 Respiratory rate 20 /min Mario Pee Other [employer] Other 04-17-2022 15:00-0500 SaO2% (BldA) [Mass fraction] 98 % Mario Pee Other [employer] Other 04-17-2022 15:00-0500 Systolic blood pressure 124 mm[Hg] Mario Pee Other [employer] Other 04-10-2022 08:44-0500 Body height 165.1 cm DO Mario Pee Work Phone: [facility] 04-10-2022 08:44-0500 Body temperature 98.3 [degF] DO Mario Pee Work Phone: [facility] 04-10-2022 08:44-0500 Body weight 105 kg DO Mario Pee Work Phone: [facility] 04-10-2022 08:44-0500 Diastolic blood pressure 82 mm[Hg] DO Mario Pee Work Phone: [facility] 04-10-2022 08:44-0500 Heart rate 80 /min DO Mario Pee Work Phone: [facility] 04-10-2022 08:44-0500 Respiratory rate 16 /min DO Mario Pee Work Phone: [facility] 04-10-2022 08:44-0500 SaO2% (BldA) [Mass fraction] 98 % DO Mario Pee Work Phone: [facility] 04-10-2022 08:44-0500 Systolic blood pressure 125 mm[Hg] DO Mario Pee Work Phone: [facility] 12-12-2021 14:45-0400 Body height 165.1 cm Mario Pee Other [employer] Other 12-12-2021 14:45-0400 Body mass index (BMI) [Ratio] 37.27 kg/m2 Mario Pee Other [employer] Other 12-12-2021 14:45-0400 Body temperature 96.9 [degF] Mario Pee Other [employer] Other 12-12-2021 14:45-0400 Body weight 101.61 kg Mario Pee Other [employer] Other 12-12-2021 14:45-0400 Diastolic blood pressure 80 mm[Hg] Mario Pee Other [employer] Other 12-12-2021 14:45-0400 Respiratory rate 20 /min Mario Pee Other [employer] Other 12-12-2021 14:45-0400 SaO2% (BldA) [Mass fraction] 98 % Mario Pee Other [employer] Other 12-12-2021 14:45-0400 Systolic blood pressure 124 mm[Hg] Mario Pee Other [employer] Other 10-12-2021 09:30-0400 Body height 165.1 cm Mario Pee Other [employer] Other 10-12-2021 09:30-0400 Body mass index (BMI) [Ratio] 37.27 kg/m2 Mario Pee Other [employer] Other 10-12-2021 09:30-0400 Body temperature 98.3 [degF] Mario Pee Other [employer] Other 10-12-2021 09:30-0400 Body weight 101.61 kg Mario Pee Other [employer] Other 10-12-2021 09:30-0400 Diastolic blood pressure 80 mm[Hg] Mario Pee Other [employer] Other 10-12-2021 09:30-0400 Respiratory rate 18 /min Mario Pee Other [employer] Other 10-12-2021 09:30-0400 Systolic blood pressure 110 mm[Hg] Mario Pee Other [employer] Other 09-27-2021 17:00-0400 Body height 165.1 cm Mario Pee Other [employer] Other 09-27-2021 17:00-0400 Body mass index (BMI) [Ratio] 38.1 kg/m2 Mario Pee Other [employer] Other 09-27-2021 17:00-0400 Body temperature 97.6 [degF] Mario Pee Other [employer] Other 09-27-2021 17:00-0400 Body weight 103.87 kg Mario Pee Other [employer] Other 09-27-2021 17:00-0400 Diastolic blood pressure 62 mm[Hg] Mario Pee Other [employer] Other 09-27-2021 17:00-0400 Respiratory rate 20 /min Mario Pee Other [employer] Other 09-27-2021 17:00-0400 SaO2% (BldA) [Mass fraction] 97 % Mario Pee Other [employer] Other 09-27-2021 17:00-0400 Systolic blood pressure 122 mm[Hg] Mario Pee Other [employer] Other 05-30-2021 18:15-0500 Body height 165.1 cm Mario Pee Other [employer] Other 05-30-2021 18:15-0500 Body mass index (BMI) [Ratio] 37.6 kg/m2 Mario Pee Other [employer] Other 05-30-2021 18:15-0500 Body temperature 97.3 [degF] Mario Pee Other [employer] Other 05-30-2021 18:15-0500 Body weight 102.51 kg Mario Pee Other [employer] Other 05-30-2021 18:15-0500 Diastolic blood pressure 82 mm[Hg] Mario Pee Other [employer] Other 05-30-2021 18:15-0500 Respiratory rate 20 /min Mario Pee Other [employer] Other 05-30-2021 18:15-0500 SaO2% (BldA) [Mass fraction] 97 % Mario Pee Other [employer] Other 05-30-2021 18:15-0500 Systolic blood pressure 122 mm[Hg] Mario Pee Other [employer] Other 05-02-2021 18:30-0500 Body height 165.1 cm Mario Pee Other [employer] Other 05-02-2021 18:30-0500 Body mass index (BMI) [Ratio] 36.77 kg/m2 Mario Pee Other [employer] Other 05-02-2021 18:30-0500 Body temperature 97.6 [degF] Mario Pee Other [employer] Other 05-02-2021 18:30-0500 Body weight 100.25 kg Mario Pee Other [employer] Other 05-02-2021 18:30-0500 Diastolic blood pressure 70 mm[Hg] Mario Pee Other [employer] Other 05-02-2021 18:30-0500 Respiratory rate 20 /min Mario Pee Other [employer] Other 05-02-2021 18:30-0500 SaO2% (BldA) [Mass fraction] 96 % Mario Pee Other [employer] Other 05-02-2021 18:30-0500 Systolic blood pressure 118 mm[Hg] Mario Pee Other [employer] Other Encounters Encounter Date Encounter Type Care Provider Facility Start: 10-18-2024 End: 10-18-2024 ambulatory Mario Galsgow DO Work Phone: [facility] Work Phone: Start: 10-18-2024 End: 10-18-2024 Patient encounter procedure Mario Glasgow M DO -[facility] Work Phone: Start: 09-30-2024 End: 09-30-2024 Telephone encounter Jenifer FINNEGAN Work Phone: [facility] Comment on above: MRI Start: 09-24-2024 End: 09-24-2024 ambulatory JENIFER SHEPPARD Not Available Start: 09-08-2024 End: 09-08-2024 Bamboo flowsheet Jenifer FINNEGAN Work Phone: [facility] Start: 09-08-2024 End: 09-08-2024 Bamboo flowsheet Jenifer FINNEGAN Work Phone: [facility] Start: 09-08-2024 End: 09-08-2024 Office outpatient new 45 minutes Jenifer Sheppard PA Work Phone: [facility] Comment on above: Right hip impingemen t syndrome (Primary Dx); Right hip pain Start: 09-08-2024 End: 09-08-2024 ambulatory JENIFER SHEPPARD Not Available Start: 08-27-2024 End: 08-27-2024 Patient encounter procedure Mario Cullen -[facility] Work Phone: Start: 08-05-2024 End: 08-05-2024 Bamboo flowsheet Vasu Hilton DPM Work Phone: [facility] Start: 08-05-2024 End: 08-05-2024 Bamboo flowsheet Vasu Hilton DPM Work Phone: [facility] Start: 08-05-2024 End: 08-05-2024 Office outpatient visit 15 minutes Vasu Hilton DPM Work Phone: [facility] Comment on above: Plantar fasciitis (P rimary Dx); Pain of left heel Start: 08-05-2024 End: 08-05-2024 ambulatory VASU HILTON Not Available Start: 07-26-2024 End: 07-26-2024 ambulatory [facility] Work Phone: Start: 07-26-2024 End: 07-26-2024 Patient encounter procedure [facility] Work Phone: Start: 07-09-2024 End: 07-09-2024 Telephone encounter Lou Miller RN Work Phone: Mammography Comment on above: Results Start: 07-07-2024 ambulatory MARIO GLASGOW Faci lity:[facility] Start: 07-07-2024 End: 07-07-2024 Subsequent hospital visit by physician Procedure [facility] Work Phone: Mammography Comment on above: Abnormal finding on breast imaging [R92.8] Start: 07-06-2024 End: 07-06-2024 Orders Only Lea Almanzar MD Work Phone: Mammography Comment on above: Abnormal finding on breast imaging (Primary Dx) Start: 06-28-2024 End: 06-28-2024 Telephone encounter Prince Mon PA-C Work Phone: [facility] Comment on above: Patient Question Start: 06-25-2024 End: 06-25-2024 ambulatory MARIO [employer] Facility:[facility] Start: 06-25-2024 End: 06-25-2024 Subsequent hospital visit by physician [facility] Comment on above: Mass of upper outer quadrant of left breast [N63.21] Start: 06-25-2024 End: 06-25-2024 ambulatory MARIO [employer] Facility:[facility] Start: 06-25-2024 End: 06-25-2024 Office outpatient visit 40 minutes Prince Mon PA-C Work Phone: [facility] Comment on above: Mass of upper outer quadrant of left breast (Primary Dx); Mass of right breast, unspecified quadrant; Fibrocystic breast changes of both breasts Start: 06-07-2024 End: 06-07-2024 Follow-up encounter Tegan Nichols MS Work Phone: [facility] Start: 06-02-2024 End: 06-02-2024 Office outpatient visit 15 minutes Jen Garcia DO Work Phone: [facility] Comment on above: Breast pain (Primary Dx); Mood changes; Hot flashes; Low libido Start: 06-02-2024 End: 06-02-2024 ambulatory JEN GARCIA Not Available Start: 05-31-2024 End: 05-31-2024 ambulatory [facility] Facility:[facility] Start: 05-29-2024 End: 05-29-2024 ambulatory Tegan Nichols MS Work Phone: [facility] Comment on above: Family history of br east cancer Start: 05-29-2024 End: 05-29-2024 Telemedicine consultation with patient Tegan Nichols MS Work Phone: [facility] Start: 05-27-2024 End: 05-27-2024 Office outpatient visit 40 minutes Lucero H Yoshi DO Work Phone: [facility] Comment on above: Bloody discharge fro m right nipple (Primary Dx) Start: 05-27-2024 End: 05-27-2024 ambulatory LUCERO Quin YOSHI Not Available Start: 05-21-2024 End: 05-23-2024 Telephone encounter Prince Mon PA-C Work Phone: [facility] Comment on above: Results Start: 05-20-2024 End: 05-20-2024 ambulatory MARIO GLASGOW Facility:[facility] Start: 05-20-2024 End: 05-20-2024 Subsequent hospital visit by physician Mri [facility] (Lg Bore/1.5t) Radiology MRI Comment on above: Nipple discharge [N6 4.52] Start: 05-19-2024 Non-patient / Non-visit [facility] Work Phone: Start: 05-18-2024 End: 05-18-2024 Emergency department patient visit BRANDON Erickson [facility] Comment on above: Right arm pain (Prim carter Dx); Seizure-like activity (HCC) Start: 05-11-2024 End: 05-11-2024 Office outpatient visit 40 minutes Richelle Morataya MD Work Phone: [facility] Comment on above: Alteration of awaren ess; Psychogenic nonepileptic seizure (CMS/HCC); Paresthesia Start: 05-11-2024 End: 05-11-2024 ambulatory RICHELLE MORATAYA Not Available Start: 05-07-2024 End: 05-07-2024 ambulatory [facility] Work Phone: Start: 05-07-2024 End: 05-07-2024 Patient encounter procedure [facility] Work Phone: Start: 05-06-2024 End: 05-06-2024 E-mail encounter from caregiver Opal Llanos MS Work Phone: [facility] Start: 05-06-2024 End: 05-06-2024 Patient encounter procedure Opal Llanos MS Work Phone: [facility] Comment on above: Sooner genetic couns eling appointments available Start: 04-26-2024 End: 04-26-2024 ambulatory [facility] Work Phone: Start: 04-26-2024 End: 04-26-2024 Patient encounter procedure [facility] Work Phone: Start: 03-12-2024 End: 03-12-2024 Office outpatient visit 40 minutes Prince Mon PA-C Work Phone: [facility] Comment on above: Mass of right breast , unspecified quadrant (Primary Dx); Nipple discharge; Family history of breast cancer; Fibrocystic breast changes of both breasts Start: 03-12-2024 End: 03-12-2024 Subsequent hospital visit by physician [facility] Imaging Mammo Main Mammography Comment on above: Mass of right breast , unspecified quadrant [N63.10] Start: 03-12-2024 End: 03-12-2024 ambulatory MARIO VELAZQUEZ PEE Facility:[facility] Start: 02-23-2024 End: 02-23-2024 ambulatory DO Mario Pee Work Phone: [facility] Work Phone: Start: 02-23-2024 End: 02-23-2024 Patient encounter procedure DO Mario Pee Work Phone: [facility] Work Phone: Start: 02-17-2024 End: 02-17-2024 ambulatory MARIO VELAZQUEZ PEE Facility:[facility] Start: 02-17-2024 End: 02-17-2024 Office consultation new/estab patient 80 min Leobardo Anderson MD Work Phone: Endocrinology Comment on above: Discharge from right nipple (Primary Dx); Obesity, Class II, BMI 35-39.9 Start: 01-30-2024 End: 01-30-2024 Subsequent hospital visit by physician Clinic Imaging Mammo Main Mammography Comment on above: Mass of right breast , unspecified quadrant [N63.10] Start: 01-30-2024 End: 01-30-2024 ambulatory PRINCE MON Facility:[facility] Start: 01-30-2024 End: 01-30-2024 Patient encounter procedure Prince Mon PA-C Work Phone: [facility] Comment on above: Mass of right breast , unspecified quadrant (Primary Dx); Nipple discharge; Family history of breast cancer Start: 01-19-2024 End: 01-19-2024 Patient encounter procedure Prince Mon PA-C Work Phone: [facility] Comment on above: Breast fibroadenoma, right (Primary Dx); Fibrocystic breast changes of both breasts; Post-operative state Start: 01-19-2024 End: 01-19-2024 ambulatory PRINCE MON Facility:[facility] Start: 01-09-2024 End: 01-09-2024 ambulatory Jackie Sutton MD Work Phone: [facility] Comment on above: Pain medication Start: 01-09-2024 End: 01-09-2024 E-mail encounter from caregiver Jackie Sutton MD Work Phone: [facility] Start: 01-09-2024 End: 01-09-2024 Telephone encounter Jackie Sutton MD Work Phone: [facility] Comment on above: Breast Problem Start: 01-08-2024 End: 01-08-2024 ambulatory KELI STRICKLAND Facility:[facility] Start: 01-07-2024 Non-patient / Non-visit DO Set h Pee Work Phone: [facility] Work Phone: Start: 01-07-2024 Encounter for other preprocedural examination MARIO GLASGOW [facility] Start: 01-07-2024 End: 01-07-2024 ambulatory JACKIE SUTTON Facility:[facility] Start: 01-07-2024 End: 01-07-2024 Subsequent hospital visit by physician Procedure Mammo Main Mammography Start: 01-06-2024 End: 01-06-2024 Telephone encounter Camila Russo PA-C Work Phone: Pre Anesthesia Comment on above: Patient Update Start: 01-06-2024 End: 01-06-2024 [facility] Pre [facility] Start: 01-06-2024 End: 01-06-2024 ambulatory JACKIE COPELAND Facility:[facility] Start: 01-06-2024 End: 01-06-2024 Anesthesia consultation [facility] Pre Anesthesia Comment on above: Pre-op evaluation (P rimary Dx); Seizure (HCC); Difficult intravenous access; Obesity (BMI 30-39.9); POTS (postural orthostatic tachycardia syndrome); Rash Start: 01-06-2024 End: 01-06-2024 Preprocedural examination done Pac Virtual [facility] Work Phone: Start: 01-02-2024 End: 01-02-2024 Telephone encounter Yessenia Dickinson PA-C Work Phone: Pre Anesthesia Comment on above: Appointment Start: 01-02-2024 ambulatory JACKIE SUTTON Facility: [facility] Start: 12-31-2023 End: 12-31-2023 Telephone encounter Candida Camacho APRN.CNP Work Phone: Pre Anesthesia Comment on above: Missed Appointment Start: 12-26-2023 End: 12-26-2023 Patient encounter status Jackie Sutton MD Work Phone: [facility] Start: 12-26-2023 End: 12-29-2023 Telephone encounter Jackie Sutton MD Work Phone: Breast Center Comment on above: Breast Localization Request Start: 12-26-2023 End: 12-26-2023 ambulatory KELI STRICKLAND Facility:[facility] Start: 12-26-2023 End: 12-26-2023 Departed Referred DO Mario Glasgow Work Phone: [facility] [place] Work Phone: Start: 12-26-2023 End: 12-26-2023 ambulatory Jackie Sutton MD Work Phone: [facility] Work Phone: Comment on above: Breast fibroadenoma, right (Primary Dx); Preop testing Start: 12-26-2023 End: 12-26-2023 Patient encounter procedure [facility] Work Phone: Comment on above: Breast fibroadenoma, right (Primary Dx) Start: 12-17-2023 Emergency department patient visit PRINCE HILTON [facility] Start: 12-17-2023 End: 12-17-2023 Emergency department patient visit MORIS GUERRERO [facility] Start: 12-17-2023 Non-patient / Non-visit [facility] Work Phone: Start: 11-12-2023 End: 11-12-2023 ambulatory [facility] Work Phone: Start: 11-12-2023 End: 11-12-2023 Patient encounter procedure [facility] Work Phone: Start: 10-08-2023 End: 10-08-2023 ambulatory [facility] Work Phone: Start: 10-08-2023 End: 10-08-2023 Patient encounter procedure [facility] Work Phone: Start: 10-08-2023 End: 10-08-2023 ambulatory VASU HILTON Not Available Start: 09-12-2023 Telephone encounter Franchesca lamas PA-C Work Phone: [facility] Start: 09-11-2023 Telephone encounter Lou Miller RN Work Phone: Mammography Comment on above: Results Start: 09-08-2023 End: 09-08-2023 ambulatory KELI STRICKLAND Facility:[facility] Start: 09-08-2023 End: 09-08-2023 Subsequent hospital visit by physician Procedure Mammo Main Mammography Comment on above: Fibrocystic breast c hanges of both breasts [N60.11, N60.12] Start: 09-02-2023 Non-patient / Non-visit [facility] Work Phone: Start: 08-27-2023 End: 08-27-2023 ambulatory DO Mario M. Pee Work Phone: [facility] Work Phone: Start: 08-27-2023 End: 08-27-2023 Patient encounter procedure DO Mario Pee Work Phone: [facility] Work Phone: Start: 08-13-2023 Non-patient / Non-visit DO Set h Pee Work Phone: [facility] Work Phone: Start: 08-11-2023 Telephone encounter Franchesca lamas PA-C Work Phone: [facility] Start: 08-07-2023 End: 08-07-2023 Subsequent hospital visit by physician Clinic Imaging Mammo Main Mammography Comment on above: Fibrocystic breast c hanges of both breasts [N60.11, N60.12] Start: 08-07-2023 End: 08-07-2023 ambulatory KELI STRICKLAND Facility:[facility] Start: 08-07-2023 End: 08-07-2023 Patient encounter procedure Franchesca Man PA-C Work Phone: [facility] Comment on above: Mastodynia (Primary Dx); Fibrocystic breast changes of both breasts; Family history of breast cancer; Dense breasts; Nipple discharge Start: 08-06-2023 Orders Only Annamerica Arenas Garett peterson PA-C Work Phone: Breast Center Comment on above: Disorder of breast ( Primary Dx) Start: 07-30-2023 Telephone encounter Franchesca Alejandro adams PA-C Work Phone: [facility] Start: 07-25-2023 Non-patient / Non-visit DO Set h Pee Work Phone: [facility] Work Phone: Start: 07-25-2023 Telephone encounter Franchesca Alejandro adams PA-C Work Phone: [facility] Start: 07-07-2023 Non-patient / Non-visit DO Set h Pee Work Phone: [facility] Work Phone: Start: 07-07-2023 End: 07-07-2023 Admission to same day surgery center DO Mario Pee Work Phone: [facility] Start: 07-07-2023 End: 07-07-2023 ambulatory DO Mario M. Pee Work Phone: [facility] Work Phone: Start: 07-01-2023 Non-patient / Non-visit DO Set h Pee Work Phone: [facility] Work Phone: Start: 06-30-2023 Non-patient / Non-visit DO Set h Pee Work Phone: [facility] Work Phone: Start: 06-06-2023 Non-patient / Non-visit DO Set h Pee Work Phone: [facility] Work Phone: Start: 06-03-2023 End: 06-03-2023 Emergency department patient visit DO Mario Pee Work Phone: [facility] Work Phone: Start: 05-07-2023 End: 05-07-2023 ambulatory Mario Pee Other [employer] Other Start: 05-07-2023 Telephone encounter Mario Pee [facility] Start: 04-01-2023 End: 04-01-2023 Patient encounter procedure DO Mario Pee Work Phone: [facility] Work Phone: Start: 03-21-2023 End: 03-21-2023 ambulatory Mario Pee Other [employer] Other Start: 03-21-2023 Telephone encounter Mario Pee [facility] Start: 02-13-2023 End: 02-13-2023 ambulatory Mario Pee Other [employer] Other Start: 02-13-2023 Telephone encounter Mario Pee [facility] Start: 01-29-2023 End: 01-29-2023 ambulatory Mario Pee Other [employer] Other Start: 01-29-2023 Office outpatient vi sit 15 minutes Mario Pee [facility] Start: 01-21-2023 End: 01-21-2023 ambulatory Mario Pee Other [employer] Other Start: 01-21-2023 Telephone encounter Mario Pee [facility] Start: 01-01-2023 End: 01-02-2023 ambulatory Erin Chavez Facility:[facility] Start: 01-01-2023 End: 01-01-2023 Patient encounter procedure Erin MHernandez Vargasjean pierre [facility] Start: 12-20-2022 End: 12-20-2022 ambulatory Mario Pee Other [employer] Other Start: 12-20-2022 Telephone encounter Mario Pee [facility] Start: 12-12-2022 End: 12-12-2022 ambulatory Mario Pee Other [employer] Other Start: 12-12-2022 Office outpatient vi sit 15 minutes Mario Pee [facility] Start: 11-22-2022 End: 11-23-2022 Emergency department patient visit DO Sonam Montoya [facility] Start: 11-22-2022 End: 11-23-2022 Emergency department patient visit Sonam Montoya [facility] Start: 11-20-2022 End: 11-20-2022 ambulatory Mario Pee Other [employer] Other Start: 11-20-2022 Telephone encounter Mario Pee [facility] Start: 11-14-2022 End: 11-14-2022 ambulatory Mario Pee Other [employer] Other Start: 11-14-2022 Office outpatient vi sit 15 minutes Mario Pee [facility] Start: 10-15-2022 End: 10-15-2022 ambulatory Mario Pee Other [employer] Other Start: 10-15-2022 Office outpatient vi sit 25 minutes Mario Pee [facility] Start: 10-09-2022 End: 10-09-2022 ambulatory Mario Pee Other [employer] Other Start: 10-09-2022 Telephone encounter Mario Pee [facility] Start: 09-17-2022 End: 09-17-2022 ambulatory Mario Pee Other [employer] Other Start: 09-17-2022 Office outpatient vi sit 15 minutes Mario Pee [facility] Start: 09-17-2022 Telephone encounter Mario Pee [facility] Start: 08-13-2022 End: 08-14-[address] MARIO Cullen PEE Facility:[facility] Start: 08-12-2022 End: 08-13-[address] MARIO Cullen PEE Facility:[facility] Start: 08-09-2022 End: 08-09-2022 ambulatory Mario Pee Other [employer] Other Start: 08-09-2022 Telephone encounter Mario Pee [facility] Start: 07-08-2022 End: 07-08-2022 ambulatory Vi Benites Other [employer] Other Start: 07-08-2022 Telephone encounter Vi [facility] Start: 06-17-2022 End: 06-17-2022 ambulatory Mario Pee Other [employer] Other Start: 06-17-2022 Telephone encounter Mario Pee [facility] Start: 06-14-2022 End: 06-14-2022 ambulatory DO Mario M. Pee Work Phone: [facility] Work Phone: Start: 06-14-2022 End: 06-14-2022 Departed Referred DO Mario Pee Work Phone: [facility] [place] Work Phone: Start: 06-07-2022 End: 06-07-2022 ambulatory Mario Pee Other [employer] Other Start: 06-07-2022 Telephone encounter Mario Pee [facility] Start: 05-09-2022 End: 05-09-2022 ambulatory Mario Pee Other [employer] Other Start: 05-09-2022 Telephone encounter Mario Pee [facility] Start: 05-06-2022 End: 05-06-2022 ambulatory Mario Pee Other [employer] Other Start: 05-06-2022 Telephone encounter Mario Pee [facility] Start: 05-02-2022 End: 05-02-2022 Admission to same day surgery center DO Mario Pee Work Phone: [facility] [place] Start: 05-02-2022 End: 05-02-2022 ambulatory DO Mario M. Pee Work Phone: [facility] Work Phone: Start: 04-25-2022 Telephone encounter Mario Pee [facility] Start: 04-25-2022 End: 04-25-2022 Departed Referred DO Mario Pee Work Phone: [facility] [place] Start: 04-25-2022 End: 04-25-2022 ambulatory DO Mario M. Pee Work Phone: [employer] Other Start: 04-24-2022 End: 04-24-2022 Emergency department patient visit DO Mario Pee Work Phone: [facility] Work Phone: Start: 04-23-2022 End: 04-23-2022 Patient encounter procedure DO Mario Pee Work Phone: [facility]Pre-Surgical Testing Work Phone: Start: 04-17-2022 End: 04-17-2022 ambulatory Mario Pee Other [employer] Other Start: 04-17-2022 Office outpatient vi sit 15 minutes Mraio Pee [facility] Start: 04-17-2022 Telephone encounter Mario Pee [facility] Start: 04-16-2022 End: 04-16-2022 ambulatory Mario Pee Other [employer] Other Start: 04-16-2022 Telephone encounter Mario Pee [facility] Start: 04-10-2022 End: 04-10-2022 ambulatory DO Mario M. Pee Work Phone: [facility] Work Phone: Start: 04-10-2022 End: 04-10-2022 Patient encounter procedure DO Mario Pee Work Phone: [facility] Start: 04-09-2022 End: 04-09-2022 ambulatory Mario Pee Other [employer] Other Start: 04-09-2022 Telephone encounter Mario Pee [facility] Start: 04-08-2022 End: 04-08-2022 ambulatory Mario Pee Other [employer] Other Start: 04-08-2022 Telephone encounter Mario Pee [facility] Start: 03-28-2022 End: 03-30-[address] MARIO M PEE Facility: Start: 03-06-2022 End: 03-06-2022 ambulatory Mario Pee Other [employer] Other Start: 03-06-2022 Telephone encounter Mario Pee [facility] Start: 02-10-2022 End: 02-10-[address] MARIO M PEE Facility:[facility] Start: 02-04-2022 End: 02-04-2022 ambulatory Mario Pee Other [employer] Other Start: 02-04-2022 Telephone encounter Mario Pee [facility] Start: 01-29-2022 End: 01-29-2022 ambulatory Mario Pee Other [employer] Other Start: 01-29-2022 Telephone encounter Mario Pee [facility] Start: 01-28-2022 End: 01-28-[address] MARIO M PEE Facility:[facility] Start: 12-25-2021 End: 12-25-2021 ambulatory Mario Pee Other [employer] Other Start: 12-25-2021 Telephone encounter Mario Pee [facility] Start: 12-12-2021 End: 12-12-2021 ambulatory Mario Pee Other [employer] Other Start: 12-12-2021 Office outpatient vi sit 15 minutes Mario Pee [facility] Start: 11-26-2021 End: 11-26-2021 ambulatory Mario Pee Other [employer] Other Start: 11-26-2021 Telephone encounter Mario Pee [facility] Start: 11-21-2021 End: 11-21-2021 ambulatory Mario Pee Other [facility] Other Start: 11-21-2021 Telephone encounter Mario Pee [facility] Start: 11-05-2021 End: 11-05-2021 ambulatory Mario Pee Other [employer] Other Start: 11-05-2021 Telephone encounter Mario Pee [facility] Start: 10-29-2021 End: 10-29-[address] MARTIN M PEE Facility: Start: 10-23-2021 End: 10-23-2021 ambulatory Mario Pee Other [facility] Other Start: 10-23-2021 Telephone encounter Mario Pee [facility] Start: 10-19-2021 End: 10-19-2021 ambulatory Mario Pee Other [employer] Other Start: 10-19-2021 Telephone encounter Mario Pee [facility] Start: 10-12-2021 End: 10-12-2021 ambulatory Mario Pee Other [employer] Other Start: 10-12-2021 Office outpatient vi sit 15 minutes Mario Pee [facility] Start: 10-12-2021 Telephone encounter Mario Pee [facility] Start: 10-01-2021 End: 10-01-2021 ambulatory Mario Pee Other [facility] Other Start: 10-01-2021 Telephone encounter Mario Pee [facility] Start: 09-27-2021 End: 09-27-2021 ambulatory Mario Pee Other [employer] Other Start: 09-27-2021 Office outpatient vi sit 15 minutes Mario Pee [facility] Start: 09-18-2021 End: 09-18-2021 ambulatory Mario Pee Other [employer] Other Start: 09-18-2021 Telephone encounter Mario Pee [facility] Start: 09-10-2021 End: 09-10-2021 ambulatory Mario Pee Other [employer] Other Start: 09-10-2021 Telephone encounter Mario Pee [facility] Start: 09-05-2021 End: 09-05-2021 Patient encounter procedure Erin Chavez [facility] Start: 08-13-2021 End: 08-13-2021 ambulatory Mario Pee Other [employer] Other Start: 08-13-2021 Telephone encounter Mario Pee [facility] Start: 08-01-2021 End: 08-01-2021 ambulatory Mario Pee Other [facility] Other Start: 08-01-2021 Telephone encounter Mario Pee [facility] Start: 07-06-2021 End: 07-06-2021 ambulatory Vi Easterwood Other [employer] Other Start: 07-06-2021 Telephone encounter Vi [facility]wood [facility] Start: 06-18-2021 End: 06-18-2021 ambulatory Mario Pee Other [facility] Other Start: 06-18-2021 Telephone encounter Mario Pee [facility] Start: 06-08-2021 End: 06-08-2021 ambulatory Mario Pee Other [employer] Other Start: 06-08-2021 Telephone encounter Mario Pee [facility] Start: 05-30-2021 End: 05-30-2021 ambulatory Mario Pee Other [facility] Other Start: 05-30-2021 Office outpatient vi sit 15 minutes Mario Pee [facility] Start: 05-21-2021 End: 05-21-2021 ambulatory Mario Pee Other [facility] Other Start: 05-21-2021 Telephone encounter Mario Pee [facility] Start: 05-09-2021 End: 05-09-2021 ambulatory Mario Pee Other [facility] Other Start: 05-09-2021 Telephone encounter Mario Pee [facility] Start: 05-08-2021 End: 05-08-2021 ambulatory Mario Pee Other [facility] Other Start: 05-08-2021 Telephone encounter Mario Pee [facility] Start: 05-02-2021 End: 05-02-2021 ambulatory Mario Pee Other [employer] Other Start: 05-02-2021 Office outpatient vi sit 15 minutes Mario Pee [facility] Procedures Date Procedure Procedure Detail Performing Clinician Start: 09-08-2024 Radex hip unilateral with pelvis 2-3 views Jenifer FINNEGAN Work Phone: Start: 07-07-2024 Digital breast tomos ynthesis unilateral Lea Almanzar MD Work Phone: Start: 07-07-2024 Bx breast w/device 1 st lesion ultrasound guid Lea Almanzar MD Work Phone: Start: 06-25-2024 End: 06-25-2024 Us breast uni real time with image limited Prince Mon PA-C Work Phone: Start: 06-25-2024 Digital breast tomos ynthesis bilateral Prince Mon PA-C Work Phone: Start: 05-18-2024 Radex shoulder compl ete minimum 2 views Sukumar Lomax PA-C Work Phone: Start: 05-18-2024 Ct head/brain w/o co ntrast material Sukumar Lomax PA-C Work Phone: Start: 05-18-2024 Drug tst prsmv instr mnt chem analyzers pr date Tegan Barragan DO Work Phone: Start: 05-18-2024 Comprehensive metabolic [facility] Work Phone: Start: 03-12-2024 Us breast uni real t garfield with image limited Prince Mon PA-C Work Phone: Start: 03-12-2024 Digital breast tomos ynthesis unilateral Prince Mon PA-C Work Phone: Start: 01-30-2024 Us breast uni real t garfield with image limited Prince Mon PA-C Work Phone: Start: 01-07-2024 Diagnostic mammograp hy computer-aided detcj uni Jackie Sutton MD Work Phone: Start: 01-07-2024 Perq breast loc kym ce placemt 1st lesio us imag Jackie Sutton MD Work Phone: Start: 12-26-2023 Bacteria identified in Urine by Culture DO Marioquin Glasgow Work Phone: Start: 12-26-2023 Urine culture DO Mario R brentglramona Work Phone: Start: 09-08-2023 Bx breast w/device 1 st lesion ultrasound guid Franchesca Arenas Donovan FINNEGAN-C Work Phone: Start: 09-08-2023 Digital breast tomos ynthesis unilateral Franchesca Arenas Donovan FINNEGAN-C Work Phone: Start: 09-02-2023 Cortisol total Comment on above: Please Note: The ref erence interval and flagging for this test is for an AM collection. If this is a PM collection please use: Cortisol PM: 2.3-11.9Performed at: [facility] [id number] Director: Joby Hackett PhD, Phone: [phone] Start: 08-07-2023 Us breast uni real t garfield with image limited Franchesca Arenas Donovan FINNEGAN-C Work Phone: Start: 07-07-2023 Mammography of [...] 04-21-2017 Cystourethroscopy an d dilation of bladder Erni Lue Start: 06-12-2016 Cystoscopy with hydrodistention Erin [...] 11:15 AM EDT Office Visit [facility] [address] [place] [address] Tegan [place], [place] [address] [place] [address] [facility] Comment on above: Everything Start: 10-18-2024 Patient referral [facility] Work Phone: Start: 10-13-2024 End: 10-13-2024 Patient encounter procedure 10/13/2024 2:30 PM EDT Office Visit [facility] [address] [place] [address] Jenifer Sheppard, PA [address] [facility] [address] [place] [address] [facility] Start: 09-08-2024 End: 09-08-2025 MR Hip - right Arthrogram MR hip arthrogram right Imaging Routine Right hip impingement syndrome Expected: 09/08/2024, Expires: 09/08/2025 [facility] Work Phone: Comment on above: Expected: 09/08/2024 , Expires: 09/08/2025 Start: 09-08-2024 End: 09-08-2024 Patient encounter procedure 09/08/2024 2:00 PM EDT Office Visit [facility] [address] [place] [phone] Jenifer Sheppard, PA [address] [facility] [address] [place] [address] Arrived [facility] Comment on above: Arrived Start: 08-30-2024 End: 08-30-2024 Patient encounter procedure 08/30/2024 10:45 AM EDT Office Visit [facility] [address] [place] [phone] Jen Garcia DO [address] [place] [address] [facility] Start: 08-05-2024 End: 08-05-2024 Patient encounter procedure 08/05/2024 9:15 AM EDT Office Visit [facility] [address] [place] [phone] Vasu Hilton DPM [address] [place] [address] Arrived [facility] Comment on above: Arrived Start: 07-07-2024 End: 07-07-2024 Patient encounter procedure 07/07/2024 7:30 AM EDT Appointment Mammography [address] [place] [address] LEFT BREAST ULTRASOUND GUIDED CORE BIOPSY Mammography Comment on above: LEFT BREAST ULTRASOU ND GUIDED CORE BIOPSY Start: 06-07-2024 End: 06-07-2024 Patient encounter procedure 06/07/2024 8:40 AM EST Appointment MRI A10 [address] [address] Nipple discharge [N64.52] MRI A10 Comment on above: Nipple discharge [N6 4.52] Start: 06-02-2024 End: 06-02-2024 Patient encounter procedure 06/02/2024 8:15 AM EST Office Visit [facility] [address] [place] [phone] Jen Garcia, DO [address] [place] [address] [facility] Start: 05-31-2024 End: 05-31-2024 ambulatory 05/31/2024 11:00 AM EST Results Only [facility] [address] [place] [address] [facility] Start: 05-29-2024 End: 08-28-2024 [facility] HEREDITARY DIAGNOSTIC CANCER PANEL [facility] HEREDITARY DIAGNOSTIC CANCER PANEL Lab Routine Family history of breast cancer Expected: 05/29/2024, Expires: 08/28/2024 [facility] Work Phone: Comment on above: Expected: 05/29/2024 , Expires: 08/28/2024 Start: 05-29-2024 End: 05-29-2024 ambulatory 05/29/2024 12:00 PM EST [facility] [address] [place] [address] [place]egan [place], [place] [address] [place] [address] Fhx of breast cancer [facility] Comment on above: Fhx of breast cancer Start: 04-26-2024 Patient referral [facility] Work Phone: Start: 04-05-2024 End: 04-05-2024 Patient encounter procedure 04/05/2024 2:45 PM EST Office Visit Breast [facility] [address] [address] [place] Mon PA-C [address] [place] [address] 2 month follow up/staff msg Breast Center Comment on above: 2 month follow up/st aff msg Start: 02-17-2024 End: 05-18-2024 INSULIN LIK GR FAC I INSULIN LIK GR FAC I Lab Routine Obesity, Class II, BMI 35-39.9 Expected: 02/17/2024, Expires: 05/18/2024 [facility] Work Phone: Comment on above: Expected: 02/17/2024 , Expires: 05/18/2024 Start: 02-17-2024 End: 05-18-2024 Thyrotropin [Units/volume] in Serum or Plasma THYROID STIMULATING HORMONE Lab Routine Obesity, Class II, BMI 35-39.9 Expected: 02/17/2024, Expires: 05/18/2024 [facility] Comment on above: Expected: 02/17/2024 , Expires: 05/18/2024 Start: 02-17-2024 End: 02-17-2024 Patient encounter procedure 02/17/2024 1:00 PM EDT Office Visit Endocrinology [address] [place] [address] Leobardo Anderson MD [address] [facility] [address] [place] [address] hormone issue Endocrinology Comment on above: hormone issue Start: 01-19-2024 End: 01-19-2024 Patient encounter procedure 01/19/2024 2:45 PM EDT Office Visit Breast Center [address] [address] [place] Mon PA-C [address] [place] [address] post op Breast Center Comment on above: post op Start: 01-08-2024 End: 01-08-2024 Admission to same day surgery center Ambulatory Surgery Comment on above: RIGHT LIV EXCISIONA L BIOPSY Start: 01-08-2024 End: 01-08-2024 Exc breast les preop plmt rad marker open 1 les [facility] Start: 01-08-2024 Subsequent hospital visit by physician Ambulatory Surgery Comment on above: Breast fibroadenoma, 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.1] Start: 01-08-2024 End: 01-08-2024 Admission to same day surgery center 01/08/2024 7:30 AM EDT - 01/08/2024 8:50 AM EDT Surgery Ambulatory Surgery [address] [place] [address] Jackie Sutton MD [address] [place] [address] RIGHT LIV EXCISIONAL BIOPSY Ambulatory Surgery Comment on above: RIGHT LIV EXCISIONA L BIOPSY Start: 01-08-2024 End: 01-08-2024 Exc breast les preop plmt rad marker open 1 les EXCISION BREAST LESION IDENTIFIED BY PREOPERATIVE PLACEMENT RADIOLOGICAL MARKER, OPEN, SINGLE LESION Breast fibroadenoma, right 01/08/2024 7:30 AM EDT [facility] Start: 01-08-2024 Subsequent hospital visit by physician 01/08/2024 7:30 AM EDT Hospital Encounter Ambulatory Surgery [address] [place] [address] Jackie Sutton MD [address] [place] [address] Breast fibroadenoma, right [D24.1] Ambulatory Surgery Comment on above: Breast fibroadenoma, right [D24.1] Start: 01-07-2024 End: 01-07-2024 Patient encounter procedure 01/07/2024 9:30 AM EDT Appointment Mammography [address] [address] liv Mammography Comment on above: liv Start: 12-31-2023 End: 12-31-2023 Anesthesia consultation 12/31/2023 3:00 PM EDT PAT Pre Anesthesia [address] [place] [address] virual preop Pre Anesthesia Comment on above: virual preop Start: 12-26-2023 Bacteria identified in Urine by Culture [facility] Start: 12-26-2023 End: 03-26-2024 CBC W Auto Differential panel - Blood COMPLETE BLOOD COUNT AND DIFFERENTIAL Lab Routine Preop testing Expected: 12/26/2023 (Approximate), Expires: 03/26/2024 [facility] Comment on above: Expected: 12/26/2023 (Approximate), Expires: 03/26/2024 Start: 12-26-2023 End: 03-26-2024 Comprehensive metabolic 2000 panel - Serum or Plasma COMPREHENSIVE METABOLIC PANEL Lab Routine Preop testing Expected: 12/26/2023 (Approximate), Expires: 03/26/2024 [facility] Work Phone: Comment on above: Expected: 12/26/2023 (Approximate), Expires: 03/26/2024 Start: 12-21-2023 Covid-19 Vaccine ( season) Covid-19 Vaccine ( season) [facility] Start: 12-21-2023 Covid-19 Vaccine ( season) Covid-19 Vacc[address] () [facility] Start: 12-21-2023 Influenza vaccination C [facility] Start: 09-16-2023 End: 09-16-2023 Patient encounter procedure 09/16/2023 9:00 AM EDT Office Visit Breast Center [address] [address] Jackie Sutton MD [address] [place] [address] New Consult Breast Center Comment on above: New Consult Start: 09-08-2023 End: 09-08-2023 Patient encounter procedure 09/08/2023 2:00 PM EDT Appointment Mammography [address] [address] RIGHT BREAST ULTRASOUND GUIDED CORE BIOPSY Mammography Comment on above: RIGHT BREAST ULTRASO UND GUIDED CORE BIOPSY Start: 08-07-2023 End: 11-06-2023 Thyrotropin [Units/volume] in Serum or Plasma THYROID STIMULATING HORMONE Lab Routine Nipple discharge Expected: 08/07/2023, Expires: 11/06/2023 [facility] Work Phone: Comment on above: Expected: 08/07/2023 , Expires: 11/06/2023 Start: 04-21-2023 Behavioral Health Screening Behavioral Health Screening [facility] Start: 12-20-2022 Covid-19 Vaccine ( season) Covid-19 Vaccine ( season) [facility] Start: 05-02-2022 [facility] Start: 04-25-2022 Total hysterectomy v ia vaginal approach OR Vag Hyster Lap Assist TLH/LAVH (Not Applicable) [facility] Start: 04-24-2022 Blood chemistry [facility] Start: 04-24-2022 Hepatic function panel [facility] Start: 04-24-2022 Lipase measurement [facility] Start: 04-24-2022 [facility] Start: 2019 Screening for malign ant neoplasm of cervix HPV Testing [facility] Start: 02-06-2015 Screening for malign ant neoplasm of cervix Pap Testing [facility] Start: 04-15-2014 Hepatitis B Vaccine (3 of 3 - 19+ 3-dose series) Hepatitis B Vaccine (3 of 3 - 19+ 3-dose series) [facility] Start: 02-06-2013 Screening for malign ant neoplasm of cervix Cervical Cancer Screening [facility] Start: 02-19-2008 Hepatitis B Vaccine (1 of 3 - 19+ 3-dose series) Hepatitis B Vaccine (1 of 3 - 19+ 3-dose series) [facility] Start: 02-19-2008 Urine microalbumin profile DTaP,Tdap,Td Vaccine (1 - Tdap) [facility] Start: 2007 Anxiety Screening Anxiety Screening [facility] Start: 2007 Depression Screening Depression Scre ening [facility] Start: 2007 Hepatitis C screening Hepatitis C Sc reening [facility] Start: 2007 HIV screening [facility] Bacteria identified in Urine by Culture [facility] Bacteria identified in Urine by Culture [facility] End: 08-08-2025 DBT Breast - left diagnostic for implant SAJI DIAG W HARVEY LEFT Radiology Routine Nipple discharge 1 Occurrences starting 07/09/2024 until 08/08/2025 [facility] Work Phone: Comment on above: 1 Occurrences starti ng 07/09/2024 until 08/08/2025 Exc breast les preop plmt rad marker open 1 les EXCIS BREAST LES W XRAY MARKER Procedures Routine Breast fibroadenoma, right Ordered: 12/26/2023 [facility] Comment on above: Ordered: 12/26/2023 End: 09-04-2024 MG Breast - bilateral Diagnostic SAJI DIAGNOSTIC BILATERAL Radiology Routine Disorder of breast 1 Occurrences starting 08/06/2023 until 09/04/2024 [facility] Work Phone: Comment on above: 1 Occurrences starti ng 08/06/2023 until 09/04/2024 End: 01-24-2025 MG Guidance for needle localization of Breast - right SAJI NDL LOC W SAJI GD RIGHT Radiology Routine Breast fibroadenoma, right 1 Occurrences starting 12/26/2023 until 01/24/2025 [facility] Comment on above: 1 Occurrences starti ng 12/26/2023 until 01/24/2025 MR Ankle - left WO contrast MR ankle left wo IV contrast Imaging Routine Plantar fasciitis Ordered: 08/05/2024 [facility] Work Phone: Comment on above: Ordered: 08/05/2024 End: 04-11-2025 MR Breast - bilateral WO and W contrast IV MRI BREAST WO/W IVCON BILATERAL Radiology Routine Nipple discharge 1 Occurrences starting 03/12/2024 until 04/11/2025 [facility] Work Phone: Comment on above: 1 Occurrences starti ng 03/12/2024 until 04/11/2025 MR Breast - bilatera l WO and W contrast IV MRI BREAST WO/W IVCON BILATERAL Radiology Routine Nipple discharge 05/20/2024 1:09 PM EST [facility] Work Phone: Patient Education Seizures, Adult ED [facility] Work Phone: Patient referral [facility] Work Phone: SURGICAL PATHOLOGY [facility] Work Phone: Comment on above: Release Upon Orderin g for 1 Occurrences starting 09/08/2023, 1 completed Tissue Pathology bio psy report [facility] Work Phone: Comment on above: Release Upon Orderin g for 1 Occurrences starting 07/07/2024, 1 completed URINE FREE CORTISOL BY LC-MS/MS URINE FREE CORTISOL BY LC-MS/MS Lab Routine Obesity, Class II, BMI 35-39.9 Ordered: 02/17/2024 [facility] Comment on above: Ordered: 02/17/2024 End: 08-08-2025 US Breast - left limited US BREAST LTD LEFT Radiology Routine Nipple discharge 1 Occurrences starting 07/09/2024 until 08/08/2025 [facility] Comment on above: 1 Occurrences starti ng 07/09/2024 until 08/08/2025 End: 08-05-2025 US Guidance for biopsy of Breast - left US BIOPSY BREAST LEFT Radiology Routine Abnormal finding on breast imaging 1 Occurrences starting 07/06/2024 until 08/05/2025 [facility] Work Phone: Comment on above: 1 Occurrences starti ng 07/06/2024 until 08/05/2025 [facility] Immunizations Immunization Date Immunization Notes Care Provider Fa cilirashi 2014 hepatitis B vaccine, adult dosage [facility] 2014 influenza, injectable, quadrivalent, preservative free [facility] 2014 measles, mumps and rubella virus vaccine [facility] 2014 influenza virus vaccine, unspecified formulation Franchesca Man PA-C Work Phone: [facility] 01-18-2013 hepatitis B vaccine, adult dosage [facility] 01-18-2013 measles, mumps and rubella virus vaccine [facility] NEGATED: Highlighted row has not occurred!05-16-2021 SARS-CoV-2 (COVID-19) Ad26 vaccine, recombinant Erin Chavez [facility] Payers Date Payer Category Payer Self-pay [id number] 2022 Private Health Insurance [facility] MEDICAID [id number] 2022 Medicaid [id number] 2014 Unknown [id number] 1.2.840.847951.1.13.239.2. 7.3.734366.315 1989 Unknown [id number] 2.16840.1.198547.3.579.2. 593 1989 Unknown [id number] 2.16.840.1.131440.3.579.2. 593 1989 Unknown [id number] 2.16.840.1.534913.3.579.2. 593 1989 Unknown [id number] 2.16.840.1.833642.3.579.2. 593 1989 Unknown [id number] 2.16840.1.340133.3.579.2. 593 1989 Unknown [id number] 2.16.840.1.093646.3.579.2. 593 1989 Unknown [id number] 2.16.840.1.577465.3.579.2. 593 1989 Unknown [id number] 2.16.840.1.191729.3.579.2. 727 1989 Unknown [id number] 2.16.840.1.218285.3.579.2. 727 1989 Unknown [id number] 2.16.840.1.202352.3.579.2. 182 1989 Unknown [id number] 2.16.840.1.655374.3.579.2. 1259 1989 Unknown [id number] 2.16.840.1.933510.3.579.2. 1259 1989 Unknown [id number] 2.16.840.1.099634.3.579.2. 1259 1989 Unknown [id number] 2.16.840.1.020107.3.579.2. 1259 1989 Unknown [id number] 2.16840.1.881382.3.579.2. 1259 1989 Unknown [id number] 2.16840.1.740292.3.579.2. 1259 1989 Unknown [id number] 2.840.1.004752.3.579.2. 1259 1989 Unknown [id number] 2.16840.1.539745.3.579.2. 1259 1989 Unknown [id number] 2.16840.1.208621.3.579.2. 1259 1959 Medicaid [id number] 1959 Unknown [id number] .840.1.439407.19 Unknown Regular Auto/Liability [id number] Unknown [id number] 2.16840.1.901877.3.579.2. 531 Unknown [id number] 2.16840.1.560001.3.579.2. 531 Unknown [id number] 2.16840.1.123487.3.579.2. 531 Social History Date Type Detail Facility Start: 05-16-2021 End: 08-27-2024 Tobacco smoking status Never smoked tobacco (finding) [facility] Other Tobacco smoking status Never [facility] Start: 01-13-2023 End: 06-18-2023 Sex Assigned At Female [facility] Other Start: 1990 Sex Assigned At Female [facility] Tobacco smoking status NHIS Tobacco smoking consumption unknown [facility] Start: 01-13-2023 End: 06-18-2023 History of Social function [facility] Start: 1990 Sex Assigned At Not on file [facility] Start: 06-18-2023 End: 12-26-2023 Tobacco use and exposure Smokeless tobacco non-user [facility] Start: 12-26-2023 End: 09-30-2024 Alcoholic beverage intake Current drinker of alcohol (finding) [facility] Start: 12-26-2023 Alcohol Comment socially [facility] Start: 01-06-2024 Alcohol Comment about 1-2 time s per month will have ~[address] [facility] Start: 04-26-2024 End: 07-26-2024 Sex Female (finding) [facility] How often to you have a drink containing alcohol? Monthly or less [facility] How many standard drinks containing alcohol do you have on a typical day? 1 or 2 [facility] How often do you have 6 or more drinks on 1 occasion? Never [facility] Start: 07-02-2023 Alcohol Comment A [facility] Start: 08-14-2016 Alcoholic beverage intake Current non-drinker of alcohol (finding) [facility] NEGATED: Highlighted row [facility] Medical Equipment Procedure Code Equipment Code Equipment Origin al Text Equipment Identifier Dates Ultrasoujnd Clip [id number] Start: 09-08-2023 Comment on above: Description: Hydroma rk coil Ultrasound Liv [id number] Start: 01-07-2024 Comment on above: Description: Liv Goals Date Patient Goal Desired Activity /State Functional Status Date Assessment Result Facility 11-22-2022 Functional Status N/A [facility] 03-07-2021 Are you deaf, or do you have serious difficulty hearing No 03/07/2021 11:35 PM Toya Vázquez, JUS No [facility] 03-07-2021 Are you blind, or do you have serious difficulty seeing, even when wearing glasses No 03/07/2021 11:35 PM Toya Vázquez, JUS No [facility] 03-07-2021 Do you have serious difficulty walking or climbing stairs No 03/07/2021 11:35 PM Toya Vázquez, JUS No [facility] 03-07-2021 Do you have difficul ty dressing or bathing No 03/07/2021 11:35 PM Toya Vázquez, JUS No [facility] 03-07-2021 Because of a physica l, mental, or emotional condition, do you have difficulty doing errands alone such as visiting a physician's office or shopping No 03/07/2021 11:35 PM Toya Vázquez RN No [facility] Mental Status Date Assessment Result Facility 03-07-2021 Because of a physica l, mental, or emotional condition, do you have serious difficulty concentrating, remembering, or making decisions No 03/07/2021 11:35 PM Toya Vázquez RN No [facility] Clinical Notes 03-06-2021 to 09-30-2024 Telephone Encounter - SIVAN Pedro - 09/30/2024 4:39 PM EDTTelephone Encounter - SIVAN Pedro - 09/30/2024 4:39 PM EDTTelephone Encounter - Justine Sullivan - 09/30/2024 1:41 PM EDT Note Date & Type Note Facility 09-30-2024 Telephone encount er Note Tried to call, got voicemail- will send message in portal. [facility] 09-30-2024 Miscellaneous Notes Formattin g of this note might be different from the original. Tried to call, got voicemail- will send message in portal. Patient called asking about her MRI results. Please advise [phone]. documented in this encounter [facility] 09-30-2024 Telephone encount er Note Patient called asking about her MRI results. Please advise [phone]. [facility] 09-24-2024 Note RIGHT HIP MRI ARTHRO GRAM/GADOLINIUM INJECTION: After explaining the nature of this procedure, its potential risks and complications, and alternatives, informed written and verbal consent was obtained from the patient. All questions were answered prior to the procedure. The skin overlying the right hip joint was prepped in a sterile fashion and anesthetized with 2% Lidocaine. A 22-gauge needle was inserted into the right hip joint space. The position of the needle was tested with injection of approximately 2 ml Isovue 300. This was followed by approximately 10 ml of dilute gadolinium and sterile saline into the joint space. The patient tolerated the procedure well and there were no immediate post procedure complications. The patient was sent to for further imaging. A report of the MRI findings will be forthcoming. Number of images: 1. Fluoroscopy time: 20.1 s Air Kerma ( Ka,r ): 4.17 mGy IMPRESSION: SUCCESSFUL AND UNEVENTFUL RIGHT HIP MRI ARTHROGRAM/GADOLINIUM INJECTION. ELECTRONICALLY SIGNED BY: Nato Preciado MD Not Available 09-08-2024 History of Presen t illness Narrative Images from the original note were not included. Orthopedic Office note: NAME: Sully Enriquez : 1990 (NEW PT) RT HIP PAIN ~3WKS-PT STATES SHE WAS SITTING ON A BENCH ON HER PORCH WITH RT LEG KIND OF HIGHER THAN HER OTHER LEG FOR ABOUT AN HR AND WHEN SHE GOT UP SHE HAD PAIN - TRIED CHIROPRACTIC TX; CAUSED INCREASE PAIN XRAY TODAY EPIC CHIROPRACTIC TX PAIN CAN BE GLOBAL- SOME GROIN PAIN WELL- PAIN IS CONSTANT- SYMPTOMS WORSE HS; WAKES HS- INCREASE PAIN WITH WB ACTIVITY- DENIES N/T- DIFFICULTY WITH STAIRS- +TYLENOL - VERY DIFFICULT TO GET IN A COMFORTABLE POSITION Hip Musculoskeletal Exam Gait Gait is normal. Inspection Leg length disparity: no discrepancy Right Erythema: none Ecchymosis: none Edema: none Deformity: none Palpation Right Right hip palpation is normal. Increased warmth: none Tenderness: none Range of Motion Right Right hip range of motion is within functional limits. Active ROM: normal. Passive ROM: normal. Strength Right Right hip strength is normal. Extension: 5/5. Flexion: 5/5. Internal rotation: 5/5. External rotation: 5/5. Adduction: 5/5. Abduction: 5/5. Neurovascular Right Right hip neurovascular exam is normal. Pulses - PT: normal Posterior tibial: 2+ Special Tests Right Log roll test: negative TRINO test (right): negative Impingement test: positive Special tests additional comments: + FADIR General Constitutional: appears stated age Labored breathing: no Psychiatric: normal mood and affect Neurological: alert and oriented x3 Skin: intact Lymphadenopathy: none Orders Placed This Encounter Procedures XR hip right 2 or 3 views Is the patient ?: No Reason for exam:: pain MR hip arthrogram right Standing Status: Future Expected Date: 09/08/2024 Expiration Date: 09/08/2025 Scheduling Instructions: MRI ARTHROGRAM RT HIP JACKELINEFelipe REIDWALESKA; PLEASE CALL PT TO SCHEDULE Is the patient ?: No Reason for exam:: INTERNAL DERANGEMENT RT HIP Ambulatory referral to Physical Therapy Standing Status: Future Expected Date: 09/08/2024 Expiration Date: 03/11/2025 Referral Priority: Routine Referral Type: Consultation Referral Reason: Specialty Services Required Referral Location: [facility] Sched[facility] Requested Specialty: Physical Therapy Number of Visits Requested: 1 Procedures Results - Imaging: - X-ray shows a small avulsion to the superior acetabulum concerning for labral injury ICD-10-CM 1. Right hip impingement syndrome M25.851 predniSONE (Deltasone) 20 MG tablet Ambulatory referral to Physical Therapy MR hip arthrogram right 2. Right hip pain M25.551 XR hip right 2 or 3 views predniSONE (Deltasone) 20 MG tablet Ambulatory referral to Physical Therapy Assessment & Plan Right hip pain. The patient has had similar symptoms in the past on and off but recent exacerbation after sitting with hip flexed for an extended period of time. An x-ray shows a small avulsion to the superior acetabulum, which is concerning for a labral injury. Diagnostic plan: An MRI arthrogram of her hip has been recommended for further evaluation to rule out a labral tear. Treatment plan: A prednisone taper has been recommended to help with inflammation, with risks and benefits discussed. Her prior treatment with Medrol Dosepak resulted in a solitary blister on her chest, which does not appear to be a systemic issue. She is willing to try the oral steroid taper. Clinical decision making: Given the significance of her pain affecting her activities of daily living, formal physical therapy is not recommended at this time unless there is improvement with the steroid pack due to the length of symptoms. Follow-up: The patient was thankful, had no further concerns or questions. Questions answered in laymen terms at the bedside. The diagnosis, home exercise plan and any ongoing restrictions/ recommendations reviewed. If unable to be reached in office, I recommend evaluation at nearest Emergency Room if any symptoms worsened or new symptoms develop for requiring urgent evaluation. Visit was preformed using [employer] speech recognition. documented in this encounter [facility] 08-05-2024 History of Presen t illness Narrative Images from the original note were not included. HPI: Sully Enriquez presents today for evaluation of left heel pain. Patient states that she has had pain in the foot for 3 months. She describes the pain as sharp and burning which has increased with time. Patient relates a positive history of trauma to the area. She has tried OTC meds, inserts, shoes, and a brace for treatment. Patient only got a few hours of relief after the last injection. No other complaints. Exam: General Examination: GENERAL APPEARANCE: awake, aware of surroundings, in no acute distress Vascular: DORSALIS PEDIS PULSE: 2/4, bilaterally POSTERIOR TIBIAL PULSE: 2/4, bilaterally TEMPERATURE GRADIENT: warm to cool EDEMA: to the lateral left ankle CAPILLARY FILLING TIME(sec): capillary fill inact bilateral digits less than 3 secs Neurologic: NEUROLOGIC: light touch is intact to the plantar foot Dermatologic: SKIN FINDINGS: normal HYPERKERATOSIS: none NAIL PATHOLOGY: digits 1-5 bilateral are intact SKIN PATHOLOGY: texture, turgor, hair growth, within normal limits Orthopedic: FOOT MORPHOLOGY: neutral JOINT RANGE OF MOTION: without pain or crepitus to the foot and ankle bilateral DEFORMITIES: none PAIN ELICITED WITH PALPATION OF: There is pain noted with palpation to the left heel at the plantar medial tubercle of the calcaneus. There is pain to palpation of the medial band of the plantar fascia. No pain noted with compression of the calcaneus or to palpation of the Achilles tendon left. No pain with palpation along the course of the posterior tibial tendon PAIN ELICITED WITH ROM: with ankle ROM left MUSCLE STRENGTH: 5/5 for all pedal groups tested Assessments: ICD M72.2 - Plantar fasciitis ICD M79.672 - Pain in left foot Plan: 1. I explained to the patient the indication for ancillary imaging, specifically MRI, due to the fact that they continue to have persistent and recurrent pain despite numerous conservative efforts, including immobilization, stretching, icing, inserts, and anti-inflammatories for several consecutive months. This will directly affect the treatment plan and is medically necessary for further evaluation of the current diagnosis. 2. Order was placed into [facility] for MRI leftankle. 3. Patient was instructed on scheduling once prior authorization is obtained if needed and follow-up afterward. Patient was instructed to make an appointment 3-5 days afterward to discuss the results and further treatment plan. 4. Patient was instructed on continued conservative treatment in the meantime including use of a walking boot. Patient was fitted for and dispensed a walking boot and instructed on use. 5. RTC: following MRI. documented in this encounter [facility] 07-26-2024 Evaluation note Diagnosis Onset Date Resolution BMI 39.0-39.9,adult noneactive July 26, 2024 3:01pm BMI 38.0-38.9,adult noneactive August 272024 9:34am Body mass index (BMI) of 38.0 to 38.9 in adult noneactive October 18, 2024 1:36pm [facility] Work Phone: 1(780) 940-749003-21-2025 Telephone encounter Note* Telephone Encounter - Prince Mon PA-C - 07/09/2024 4:47 PM EDT Called and spoke with patient reviewed benign biopsy and recommendation for 6 month follow up. I will see her back in 6 months with imaging and exam same day. [facility]03-21-2025 Miscellaneous Notes* Telephone Encounter - Prince Mon PA-C - 07/09/2024 4:47 PM EDT Called and spoke with patient reviewed benign biopsy and recommendation for 6 month follow up. I will see her back in 6 months with imaging and exam same day. * Telephone Encounter - Yaya Velasco - 07/09/2024 4:33 PM EDT Patient stated she missed a call from Dr. Friedman office not to long ago. I saw someone called her regarding her results pathology, Lou Miller. Patient said she sees Prince Mon and wanted to speak with her about her results. [phone]. documented in [facility] Telephone encounter Note * Telephone Encounter - Yaya Velasco - 07/09/2024 4:33 PM EDT Patient stated she missed a call from Dr. Friedman office not to long ago. I saw someone called her regarding her results pathology, Lou Miller. Patient said she sees Prince Mon and wanted to speak with her about her results. [phone]. [facility]03-21-2025 Telephone encounter Note* Telephone Encounter - Lou Miller RN - 07/09/2024 2:26 PM EDT Called patient to notify the breast pathology results are benign per Dr. Perla. Informed patient a 6 month follow up is recommended. Patient verbalized understanding. [facility] Work Phone: [phone] Miscellaneous Notes* Telephone Encounter - Lou Miller RN - 07/09/2024 2:26 PM EDT Called patient to notify the breast pathology results are benign per Dr. Perla. Informed patient a 6 month follow up is recommended. Patient verbalized understanding. documented in this encounterSt[facility]03-[facility]-2025 Instructions* Patient Education - Alyssa Tovar CT - 07/07/2024 8:08 AM EDT Patient was given an At Home Instructions pamphlet which was verbally reviewed by [employer] tech. [facility]03-19-2025 NoteHNO ID: [id number] Author: ALYSSA TOVAR CT Service: Radiology Author Type: Technologist Type: Patient Education Filed: 07/07/2024 08:08 Note Text: Patient was given an At Home Instructions pamphlet which was verbally reviewed by [employer] tech.[facility] [id number] Miscellaneous Notes* Patient Education - Alyssa Tovar CT - 07/07/2024 8:08 AM EDT Patient was given an At Home Instructions pamphlet which was verbally reviewed by [employer] tech. documented in this encounterSt. [facility]03-[facility]-2025 History of Present illness Narrative* Alexsander Kim RT(R) - 07/07/2024 7:30 AM EDT Radiology Service Progress Note PATIENT NAME: Sully Enriquez DATE OF SERVICE: July 07, 2024 TIME: 8:22 AM PATIENT IDENTITY VERIFICATION COMPLETED USING TWO (2) IDENTIFIERS: Name and Date of confirmedby patient verbally. FALL SCREENING: Has the patient had 2 falls in the last year or 1 fall with injury or currently using an Ambulatory Assistive Device (Walker, Cane, Wheelchair, Crutches, etc.)? No PATIENT GENDER DATA: Assigned female at . status: : No status:NO. PATIENT RELEVANT IMPLANT DATA REVIEWED: Not Applicable PATIENT PRESENTS WITH AN IMPLANTABLE OR ATTACHED SOCIAL SERVICE LIAISON: No RADIOLOGY DEPARTMENT: Mammography PERIPHERAL IV DATA: Not applicable SIGNED BY: Swapna RODRIGUEZ July 07, 2024 8:22 AM documented in this encounterSt. [facility]03-19-2025 NoteHNO ID: [id number] Author: ALEXSANDER KIM RT(R) Service: Radiology Author Type: Technologist Type: Progress Notes Filed: 07/07/2024 08:23 Note Text: Radiology Service Progress Note PATIENT NAME: Sully Enriquez DATE OF SERVICE: July 07, 2024 TIME: 8:22 AM PATIENT IDENTITY VERIFICATION COMPLETED USING TWO (2) IDENTIFIERS: Name and Date of confirmed by patient verbally. FALL SCREENING: Has the patient had 2 falls in the last year or 1 fall with injury or currently using an Ambulatory Assistive Device (Walker, Cane, Wheelchair, Crutches, etc.)? No PATIENT GENDER DATA: Assigned female at . status: : No status: NO. PATIENT RELEVANT IMPLANT DATA REVIEWED: Not Applicable PATIENT PRESENTS WITH AN IMPLANTABLE OR ATTACHED SOCIAL SERVICE LIAISON: No RADIOLOGY DEPARTMENT: Mammography PERIPHERAL IV DATA: Not applicable SIGNED BY: Swapna RODRIGUEZ July 07, 2024 8:22 AMSelect [facility] [id number] Telephone encounter Note* Telephone Encounter - Prince Mon PA-C - 06/28/2024 12:37 PM EDT Returned patient's call regarding additional questions from imaging on 06/25 and recommendation for left retroareolar biopsy. Questions answered and patient appreciative of call. Will follow up biopsy results. Prince Mon PA-C [facility] Work Phone: [phone] 294-553703-10-2025 Miscellaneous Notes* Telephone Encounter - Prince Mon PA-C - 06/28/2024 12:37 PM EDT Returned patient's call regarding additional questions from imaging on 06/25 and recommendation for left retroareolar biopsy. Questions answered and patient appreciative of call. Will follow up biopsy results. Prince Mon PA-C documented in this encounterSt. [facility]03-07-2025 History of Present illness Narrative* Masha Johnston Tech - 06/25/2024 1:30 PM EST Radiology Service Progress Note PATIENT NAME: Sully Enriquez DATE OF SERVICE: June 25, 2024 TIME: 2:11 PM PATIENT IDENTITY VERIFICATION COMPLETED USING TWO (2) IDENTIFIERS: Name and Date of confirmedby patient verbally. FALL SCREENING: Has the patient had 2 falls in the last year or 1 fall with injury or currently using an Ambulatory Assistive Device (Walker, Cane, Wheelchair, Crutches, etc.)? No PATIENT GENDER DATA: Assigned female at . status: : No status:NO. PATIENT RELEVANT IMPLANT DATA REVIEWED: Yes PATIENT PRESENTS WITH AN IMPLANTABLE OR ATTACHED SOCIAL SERVICE LIAISON: No RADIOLOGY DEPARTMENT: Ultrasound PERIPHERAL IV DATA: Not applicable SIGNED BY: Damion Hudson June 25, 2024 2:11 PM documented in this encounterSt. [facility]03-07-2025 Miscellaneous Notes* Addendum Note - Masha Johnston Tech - 06/25/2024 1:30 PM ESTEncounter addended by: Masha Johnston Tech on: 06/25/2024 2:11 PM Actions taken: Clinical Note Signed * Addendum Note - Masha Johnston Tech - 06/25/2024 1:30 PM ESTEncounter addended by: Masha Johnston Tech on: 06/25/2024 2:45 PM Actions taken: Document edited, SmartForm saved, Document E-signed, Check Out activity completed documented in this encounterSt. Francis Hospital03-07-2025 Note* Addendum Note - Masha Johnston Tech - 06/25/2024 1:30 PM ESTEncounter addended by: Masha Johnston Tech on: 06/25/2024 2:11 PM Actions taken: Clinical Note Signed [facility]03-07-2025 Note* Addendum Note - Masha Johnston Tech - 06/25/2024 1:30 PM ESTEncounter addended by: Masha Johnston Tech on: 06/25/2024 2:45 PM Actions taken: Document edited, SmartForm saved, Document E-signed, Check Out activity completed [facility]03-07-2025 NoteHNO ID: [id number] Author: MASHA JOHNSTON Tech Service: ? Author Type: Technologist Type: Progress Notes Filed: 06/25/2024 14:11 Note Text: Radiology Service Progress Note PATIENT NAME: Sully Enriquez DATE OF SERVICE: June 25, 2024 TIME: 2:11 PM PATIENT IDENTITY VERIFICATION COMPLETED USING TWO (2) IDENTIFIERS: Name and Date of confirmed by patient verbally. FALL SCREENING: Has the patient had 2 falls in the last year or 1 fall with injury or currently using an Ambulatory Assistive Device (Walker, Cane, Wheelchair, Crutches, etc.)? No PATIENT GENDER DATA: Assigned female at . status: : No status: NO. PATIENT RELEVANT IMPLANT DATA REVIEWED: Yes PATIENT PRESENTS WITH AN IMPLANTABLE OR ATTACHED SOCIAL SERVICE LIAISON: No RADIOLOGY DEPARTMENT: Ultrasound PERIPHERAL IV DATA: Not applicable SIGNED BY: Damion Hudson June 25, 2024 2:11 [facility]03-07-2025 History of Present illness Narrative* Prince Mon PA-C - 06/25/2024 11:30 AM EST Images from the original note were not included. [facility] Department of Breast Surgical Oncology [facility] FOLLOW UP HPI: Sully Enriquez is a 34 year old female with a history of right breast fibroadenoma presents today status post right breast excisional biopsy on 01/08/2024. Final path showed fibroadenoma and benign breast tissue. She has been followed for right bloody nipple discharge and bilateral diffuse breast pain. She has also had multiple breast lumps on self-exam which have been concerning to her. 01/30/2024 Ms. Enriquez was seen for post [...] the nipple discharge was not hormonally mediated. 06/25/2024 Breast MRI (05/21/24, [facility]): marked symmetric background parenchymal enhancement. No dominant suspicious enhancing mass or unique NME in either breast. Mildly dilated ducts bilaterally. Patient has noticed two new lumps (one in right breast and one in left breast) about 2 weeks ago since she had the MRI. The lumps are non-tender (left breast lump is pea-sized, right is slightly larger) and she is concerned as the left breast lump does not seem to be as movable as the right. She reports she can no longer feel previous lumps in the right breast. She has not experienced any episodes of right nipple discharge since she was last seen in February 2024. She notes one episode of yellowish discharge from the left nipple which occurred as she was palpating the breast and occurred about 1 month ago. No interval episodes. Also reports left areolar itchiness for the past 2 months. Denies change in detergent or body wash.She has been applying unscented lotion and 1% hydrocortisone cream which helps temporarily with symptomatic relief. In the interval, she also saw her local INTERNATIONAL TRADE ANALYST and was started on Estrace. She has not yet noticed any change in symptoms. Continues to report bilateral diffuse breast pain. She removed bilateral nipple piercings a couple weeks ago. Genetic testing completed 05/31/2024. Multi-Cancer panel through [facility] was negative for a pathogenic variant. Denies other breast masses, skin changes, nipple discharge, or nipple retraction. PERSONAL BREAST HISTORY: Past breast history (prior [...] have ~2 drinks Drug use: Never Social Drivers of Health Financial Resource Strain: Low Risk (12/17/2023) Received from [facility] Overall Financial Resource Strain (CARDIA) Difficulty of Paying Living Expenses: Not hard at all Food Insecurity: No Food Insecurity (12/17/2023) Received from [facility] Hunger Vital Sign Within the past 12 months, you worried that your food would run out before you got the money to buymore.: Never true Transportation Needs: No Transportation Needs (12/17/2023) Received from [facility] Transportation In the past 12 months, has lack of transportation kept you from medical appointments or from getting medications?: No Housing Stability: Low Risk (12/17/2023) Received from [facility] Housing Stability Vital Sign In the last 12 months, was there a time when you did not have a steady place to sleep or slept in ashelter (including now)?: No CURRENT MEDICATIONS: Current Outpatient Medications Medication Instructions [...] Unknown Zithromax [Azithrom* Unknown REVIEW OF SYSTEMS: See HPI PHYSICAL EXAM: BP 128/87 Pulse 69 Temp 36.6 C (97.8 F) (Temporal) Resp 18 Wt 106.1 kg (233 lb 14.5 oz) SpO2 98% BMI 38.92 kg/m Body mass index is 38.92 kg/m . Physical Exam Vitals reviewed. Constitutional: General: She is not in acute distress. Appearance: Normal appearance. She is not ill-appearing or diaphoretic. HENT: Head: Normocephalic and atraumatic. Eyes: Extraocular Movements: Extraocular movements intact. Conjunctiva/sclera: Conjunctivae normal. Pupils: Pupils are equal, round, and reactive to light. Cardiovascular: Rate and Rhythm: Normal rate. Pulmonary: Effort: Pulmonary effort is normal. Chest: Comments: Right breast area of increased density at 10:00 9 cmFN. Previous areas of increased density in right breast no longer palpable. Well healed right LOQ surgical scar. Left breast 1 cm nodule at 1:00 10 cmFN. No dominant masses, nipple discharge, or skin changes bilaterally. Participation of a fellow, resident, medical student, or advanced practice provider student in performing the sensitive examination was discussed with the patient or authorized provider relations representative. The patient or authorized provider relations representative has agreed to proceed with the sensitive examination. (Sensitive examination includes inspection and/or palpation of the breasts, pelvis, prostate and anorectal regions) IMAGING TO DATE: 05/21/24 Breast MRI BREAST MRI: TECHNIQUE: The patient was studied using the dedicated breast coil in the Siemens 1.5 Nicole scanner. Initial axial T1W NFS, STIR imaging was carried out followed by axial T1-weighted GRE imaging both before and after IV administration of 10 ml of Elucirem. Subsequently, subtraction imaging and 3-D reconstruction were completed on an independent workstation. An additional 4-[id number] resolution sequence was performed after the first two 1 minute post-contrast sequences. Complex volumetric analysis requiring post processing was performed using a semi-automated software Lvmamaacad, on an independent workstation by the physician, with images created, reviewed, and archived. FINDINGS: There is heterogeneous fibroglandular tissue. There is marked background parenchymal enhancement, which could obscure a small or non-invasive lesion. The background parenchymal enhancement is symmetrical. Extensive enhancement throughout the breasts bilaterally most consistent with marked background enhancement. No dominant suspicious enhancing mass or unique non mass enhancement in either breast. There are mildly dilated ducts bilaterally containing T1 hyperintense material without discrete associated suspicious enhancement. No gross internal mammary or axillary adenopathy bilaterally. IMPRESSION: Extensive background enhancement demonstrated bilaterally. No dominant suspicious enhancing mass or unique non mass enhancement in either breast. Patient is under the care of Prince Mon PA-C. Continued surgical consultation recommended with management to be based on clinical concern. Follow up with ACR and NCCN guidelines. BI-RADS Category 2: Benign Interpreting Radiologist: Ryan Sheppard M.D. Electronically signed on: 05/21/2024 PATHOLOGY: NA ASSESSMENT: (N63.21) Mass of upper outer quadrant of left breast (primary encounter diagnosis) Plan: SAJI DIAG W HARVEY BILATERAL, US BREAST LTD LEFT, US BREAST LTD RIGHT (N63.10) Mass of right breast, unspecified quadrant Plan: SAJI DIAG W HARVEY BILATERAL, US BREAST LTD LEFT, US BREAST LTD RIGHT (N60.11, N60.12) Fibrocystic breast changes of both breasts Plan: SAJI DIAG W HARVEY BILATERAL, US BREAST LTD LEFT, US BREAST LTD RIGHT Sully Enriquez is a 34 year old female with a history of right breast fibroadenoma presents today status post right breast excisional biopsy on 01/08/2024. Final path showed fibroadenoma and benign breast tissue. She has been followed for right bloody nipple discharge and bilateral diffuse breast pain. She has also had multiple breast lumps on self-exam which have been concerning to her. PLAN: Bilateral diagnostic MMG and bilateral targeted US scheduled today for new bilateral breast lumps. Will follow up results. Given no interval right bloody nipple discharge in the setting of negative MMG/US/MRI, this was possibly related to her recent right breast surgery in December 2023. Reviewed that if no additional episodes of nipple discharge, may defer repeat MRI in 6 months/possible central duct excision as previously discussed Advised to apply emollient such as Aquaphor to left areola Follow up in 6 months or sooner based on imaging results. I spent a total of 50 minutes on the date of the service which included preparing to see the patient, [id number] patient care, completing clinical documentation, obtaining and/or reviewing separately obtained history, performing a medically appropriate examination, counseling and educating the pat ient/family/caregiver, ordering medications, tests, or procedures, and independently interpreting results (not separately reported). Prince Mon PA-C * Orlando Pollard LPN - 06/25/2024 11:26 AM EST Additional intake questions: Has the patient had fever, nausea, vomiting, diarrhea, constipation, fatigue for > 1 week? No Does the patient have a decreased appetite? NO Does patient want to see a [place] Attorney? No (yes to any of above refer patient to schedulers for dietitian appointment) ) Does patient have any new or increased numbness or tingling of extremities? No Is patient interested in fertility information? No Does patient need any prescription refills? No Does patient have an advanced directive in place? No, Patient referred to Resource Center Electronically Signed By: Orlando Pollard LPN documented in this encounterSt. [facility]03-[facility]-2025 NoteHNO ID: [id number] Author: PRINCE MON PA-C Service: ? Author Type: Physician Military Equipment Specialist Type: Progress Notes Filed: 06/25/2024 16:11 Note Text: [facility] Department of Breast Surgical Oncology [facility] FOLLOW UP HPI: Sully Enriquez is a 34 year old female with a history of right breast fibroadenoma presents today status post right breast excisional biopsy on 01/08/2024. Final path showed fibroadenoma and benign breast tissue. She has been followed for right bloody nipple discharge and bilateral diffuse breast pain. She has also had multiple breast lumps on self-exam which have been concerning to her. 01/30/2024 Ms. Enriquez was seen for post [...] the nipple discharge was not hormonally mediated. 06/25/2024 Breast MRI (05/21/24, [facility]): marked symmetric background parenchymal enhancement. No dominant suspicious enhancing mass or unique NME in either breast. Mildly dilated ducts bilaterally. Patient has noticed two new lumps (one in right breast and one in left breast) about 2 weeks ago since she had the MRI. The lumps are non-tender (left breast lump is pea-sized, right is slightly larger) and she is concerned as the left breast lump does not seem to be as movable as the right. She reports she can no longer feel previous lumps in the right breast. She has not experienced any episodes of right nipple discharge since she was last seen in February 2024. She notes one episode of yellowish discharge from the left nipple which occurred as she was palpating the breast and occurred about 1 month ago. No interval episodes. Also reports left areolar itchiness for the past 2 months. Denies change in detergent or body wash. She has been applying unscented lotion and 1% hydrocortisone cream which helps temporarily with symptomatic relief. In the interval, she also saw her local INTERNATIONAL TRADE ANALYST and was started on Estrace. She has not yet noticed any change in symptoms. Continues to report bilateral diffuse breast pain. She removed bilateral nipple piercings a couple weeks ago. Genetic testing completed 05/31/2024. Multi-Cancer panel through [facility] was negative for a pathogenic variant. Denies other breast masses, skin changes, nipple discharge, or nipple retraction. PERSONAL BREAST HISTORY: Past breast history (prior [...] 229 lb Mammographic density: The breasts are heterogeneou (more content not included)...[facility]03-07-2025 NoteHNO ID: [id number] Author: ORLANDO POLLARD LPN Service: ? Author Type: LICENSED NURSE Type: Progress Notes Filed: 06/25/2024 11:26 Note Text: Additional intake questions: Has the patient had fever, nausea, vomiting, diarrhea, constipation, fatigue for > 1 week? No Does the patient have a decreased appetite? NO Does patient want to see a [place] Attorney? No (yes to any of above refer patient to schedulers for dietitian appointment) ) Does patient have any new or increased numbness or tingling of extremities? No Is patient interested in fertility information? No Does patient need any prescription refills? No Does patient have an advanced directive in place? No, Patient referred to Resource Center Electronically Signed By: Orlando Pollard [facility] 06-07-2024 Progress note* Result Encounter Note - Tegan Nichols MS - 06/07/2024 9:15 AM EST Genetic test results Sully Enriquez's Multi-Cancer panel through [employer] was negative for a pathogenic variant. Please see [employer] message for further discussion. Tegan Nichols MS Licensed, Certified Genetic Counselor [facility] Work Phone: 1(754) 184-397302-17-2025 Miscellaneous Notes* Result Encounter Note - Tegan Nichols MS - 06/07/2024 9:15 AM EST Genetic test results Sully Enriquez's Multi-Cancer panel through [employer] was negative for a pathogenic variant. Please see [employer] message for further discussion. Tegan Nichols MS Licensed, Certified Genetic Counselor documented in this encounterSt. [facility] Hospital02-12-2025 History of Present illness Narrative* Radha Charlton MA - 06/02/2024 8:15 AM EST Images from the original note were not included. Jen Garcia, DO Obstetrics and Gynecology Sully M Zoe 1990 06/02/24 [id number] Breast Exam Chief Complaint Patient presents with Breast Problem Had abnormal mammogram 06/2023, consulted with Dr. Belle. Had 2nd opinion at [facility] and was advisedpossible hormone cause. New bloody discharge earlier this month, had appt with Dr. Belle. Had televisit with genetic counselor 05/29/24. Has had piercings in for 15 years, did not remove. Menopause [facility] 05/02/2022. Thinks nick-menopause. C/o mood swings, night sweats, hot flashes. Changing clothes d/t sweat. Visit Vitals BP 122/80 Wt 230 lb BMI 38.27 kg/m OB Status Hysterectomy Smoking Status Never BSA 2.18 m OB History Para Term AB Living 4 4 4 SAB IAB Ectopic Multiple Live Births 2 4 # Outcome Date GA Lbr Rashaun/2nd Weight Sex Type Anes PTL Lv 4 Para Vag-Spont ARMAND 3A Para Vag-Spont ARMAND 3B Para Vag-Spont FD 2 Para Vag-Spont ARMAND 1A Para Vag-Spont ARMAND 1B Para Vag-Spont FD Obstetric Comments 2 sets of twins, miscarried 1 each Current Outpatient Medications Medication Sig Dispense Refill acetaminophen (Tylenol) 325 MG tablet Take 650 mg by mouth every 6 (six) hours if needed ALPRAZolam (Xanax) 2 MG tablet Take 2 mg by mouth 2 (two) times a day as needed for anxiety estradiol (Estrace) 1 MG tablet Take 1 tablet (1 mg) by mouth Daily 90 tablet 1 montelukast (Singulair) 10 MG tablet TAKE 1 TABLET BY MOUTH EVERY DAY FOR 30 DAYS tiZANidine (Zanaflex) 4 MG tablet TAKE 1 TABLET BY MOUTH EVERY 8 HOURS NEEDED FOR BACK SPAMS valACYclovir (Valtrex) 1 g tablet if needed No current facility-administered medications for this visit. Allergies Allergen Reactions Ceftriaxone Other Reaction(s): Mean Dicyclomine Other Dicyclomine Hcl Hydrocodone Ketorolac Itching and Unknown Lorazepam Unknown Morphine Unknown Nitrofurantoin Hives and Itching Nitrofurantoin Macrocrystal Unknown Penicillins Unknown Other Reaction(s): Unknown Asa child Asa child Zolpidem Unknown Azithromycin Rash and Unknown Other Reaction(s): Itching Ciprofloxacin Itching, Rash and Unknown Methylprednisolone Unknown and Rash Rash, blistering Metoclopramide Itching, Rash and Unknown And anxiety Past Surgical History: Procedure Laterality Date BI US GUIDED BREAST LOCALIZATION AND BIOPSY RIGHT Right 07/10/2023 BI US GUIDED BREAST LOCALIZATION AND BIOPSY RIGHT BREAST FIBROADENOMA SURGERY Right 12/2023 CERVICAL BIOPSY W/ LOOP ELECTRODE EXCISION 2010 CYSTOSCOPY W/ urethral dilation ENDOMETRIAL ABLATION 2016 HYSTERECTOMY 05/02/2022 [facility], cauterization of pelvic endometriosis implant KIDNEY SURGERY Left stint LITHOTRIPSY 05/2020 NEPHROSTOMY Right tube OVARIAN CYST REMOVAL Right SALPINGECTOMY Bilateral 2016 Past Medical History: Diagnosis Date Bacterial vaginosis Fibrocystic breast Foot fracture, left 2023 no surgery H/O cold sores POTS (postural orthostatic tachycardia syndrome) Pyelonephritis Recurrent kidney stones Seizure (CMS/HCC) non epileptic Vaginal odor ROS See HPI EXAM GENERAL EXAMINATION alert oriented well developed, well nourished. HEAD: normocephalic atraumatic. EYES: sclera anicteric. EARS: no obvious hearing deficit. BREASTS:no masses palpable bilaterally, normal nipples bilaterally - everted & pierced -finely cystic - dense - well supported- axilla negative. R scaring healed. EXTREMITIES no edema. NEUROLOGIC: alert and oriented. PSYCH: cooperative with exam. ICD-10-CM 1. Breast pain N64.4 2. Mood changes R45.86 estradiol (Estrace) 1 MG tablet 3. Hot flashes R23.2 estradiol (Estrace) 1 MG tablet 4. Low libido R68.82 estradiol (Estrace) 1 MG tablet 06/18/23 OV [facility]DB Reviewed prolactin level from 2019: 6.6. Reviewed imaging from 2019 mammogram- cystic changes. Prolactin drawn at this time 5.4. 06/25/23 ([facility]) - diagnostic bilateral mammogram/US - diffuse heterogenous density. In theright breast at 8:00 approximately 4 to 5 cm from the nipple, is a hypoechoic avascular area that measures 2.0 x 1.6 x 1.1 cm. In the right upper outer quadrant of the breast at 2.8 x 1.0 x 2.8 cm lymph node is seen. There is no cortical thickening. 07/07/23 ([facility] - US guided CNB 8:00 4-5 CMFN 2 x 1 x 1.7 cm mass with unspecified clip placement - fibrocystic change. Concordant. 08/07/23 ([facility]) - RIGHT breast US - 8:00 4-5 CMFN 2 x 0.9 x 1.3 cm mass. 9:00 9 CMFN, no US abnormality to correlate with area of pain. 09/08/23 ([facility]) - Right breast at 8 o'clock, 4-5 cm from nipple, ultrasound-guided core biopsy with coil clip placement: Fibroadenoma.Concordant. Patient has had ongoing breast problems. She voiced breast pain- hurts to wear a bra or seat belt. Discussed R bloody nipple discharge which has now resolved. Educated patient on nipple piercing, shehas never removed. Reviewed pathology and operative reports from [facility] and [facility]. Educated on procedures done. Has had 2 needle biopsies and 1 excision. Total. She [facility] - breast pain is not hormone related more fibrocystic related. Educated may reduce caffeine intake. Reviewed other symptoms patient is having. She is having night sweats, mood changes and low libido.Advised could go on HRT to subside symptoms. She will try for 3 months. Follow up in our office in 3 months. Estradiol 1 mg daily. Keep a diary of all symptoms. Will follow up at wellness exam. Call office with other changes. Entered by Radha Charlton MA acting as scribe for Dr. Jen Garcia. Signature Radha Charlton MA Date 06/02/24 . Time 8:04 AM . The documentation recorded by the scribe accurately reflects the service(s) I personally performed and the decisions I made. Signature Chase Garcia D.O. Date 06/02/24 Time 5:00PM. documented in this encounterResearch Belton [id number] NoteHNO ID: [id number] Author: TEGAN NICHOLS MS Service: ? Author Type: Genetic Counselor Type: Progress Notes Filed: 06/08/2024 10:01 Note Text: [facility] Department of Medical Genetics Consultation Note Genetic Counselor: Tegan Nichols MS, [facility] Patient: Sully Enriquez Patient Name and confirmed at initiation of visit. This visit was conducted via [employer]. I have communicated my name and active licensure. The patient's identity and physical location were verified at the time of this visit. Either the patient or their legal provider relations representative has been informed of the risks and benefits of -- and alternatives to -- treatment through a remote evaluation and consents to proceed with the evaluation remotely. HIGH LEVEL SUMMARY: The patient's family history is potentially suggestive of a hereditary cancer syndrome. The patient provided informed consent for Multi-Cancer panel through [facility]. Results are expected in 3 weeks from the time of sample collection. IDENTIFICATION AND CHIEF COMPLAINT: Dr. Prince Mon requested a consultation for genetic counseling and risk assessment for Sully Enriquez, a 34 year old female, for discussion of her family history of cancer. She presents to clinic today to discuss the possibility of a genetic predisposition to cancer, and to further clarify her risks, as well as her family members' risks for cancer. HISTORY OF PRESENT ILLNESS: Sully Enriquez is a 34 year old female with no personal history of cancer. PAST MEDICAL HISTORY Diagnosis Date Insomnia Kidney [...] OF colonoscopy x 2 SALPINGECTOMY Bilateral 2010 CANCER SURVEILLANCE HISTORY: Mammograms: Yes / 2023 Breast MRI's: Yes / April 2024, BI-RADS 2 Breast Biopsies: Yes / fibroadenoma Colonoscopy: Yes / 2023 EGD: No GI Polyps: Yes / one polyp, no pathology Dermatology: No REPRODUCTIVE HISTORY AND PERSONAL RISK ASSESSMENT FACTORS: Uterus Intact: No / endometriosis Ovaries Intact: Yes / fallopian tubes removed SOCIAL HISTORY: Social History Tobacco Use Smoking status: Never Smokeless tobacco: Never Substance Use Topics Alcohol use: Yes Comment: about 1-2 times per month will have ~2 drinks Drug use: Never FAMILY HISTORY: We obtained a detailed, 4-generation family history. Significant diagnoses are listed below: FAMILY HISTORY Problem Relation Age of Onset Lung Cancer Father Heart Attack Father Osteoporosis Maternal Grandmother Cancer Maternal Grandmother IN NECK Breast Cancer Paternal Grandmother Breast Cancer Paternal Aunt unsure of age at diagnosis Breast Cancer Paternal Aunt diagnosed in her 40s The patient's ancestors are of [place] and [place] descent. There is no known Ashkenazi Faith ancestry. There is no known consanguinity. A copy of the patient's pedigree will be available under the scanned documents tab following today's visit. GENETIC COUNSELING RISK ASSESSMENT, DISCUSSION, AND SUGGESTED FOLLOW UP: We reviewed the natural history and genetic etiology of sporadic, familial and hereditary cancer syndromes. The patient's family history is potentially suggestive of: a hereditary cancer syndrome. We discussed that the best person to begin with genetic testing is a family member with a history of cancer. The patient's paternal aunt who was diagnosed with breast cancer would be the most appropriate relative for genetic testing. However, this relative is unavailable for testing. Therefore we discussed the limitations of interpreting tests results for an unaffected individual. The patient meets NCCN testing criteria since her paternal aunt had a personal history of breast cancer diagnosed <= 50 years of age. We discussed that identification of a hereditary cancer syndrome may help her care providers tailor her medical management. If a mutation is detected, the National Comprehensive Cancer Network and/or expert opinion recommendations could include increased cancer surveillance and prophylactic surgery options. If a mutation is detected, the patient will be referred back to the referring provider and to any additional appropriate care providers to discuss the relevant options. Inheritance of hereditary cancer syndromes was discussed with the patient. If a mutation is not found in the patient, this will decrease the likelihood of a hereditary cancer syndrome for the patient, however it cannot rule it out as the expla (more content not included)...[facility]02-08-2025 History of Present illness Narrative* Tegan Nichols MS - 05/29/2024 11:54 AM EST [facility] Department of Medical Genetics Consultation Note Genetic Counselor: Tegan Nichols MS, [facility] Patient: Sully Enriquez Patient Name and confirmed at initiation of visit. This visit was conducted via [employer]. [employer] communicated my name and active licensure. The patient's identity and physical location were verified at the time of this visit. Either the patient or their legal provider relations representative has been informed of the risks and benefits of -- and alternatives to -- treatment through a remote evaluation and consents to proceed with the evaluation remotely. HIGH LEVEL SUMMARY: The patient's family history is potentially suggestive of a hereditary cancer syndrome. The patient provided informed consent for Multi-Cancer panel through [facility]. Results are expected in 3 weeks from the time of sample collection. IDENTIFICATION AND CHIEF COMPLAINT: Dr. Prince Mon requested a consultation for genetic counseling and risk assessment for Sully Enriquez, a 34 year old female, for discussion of her family history of cancer. She presents to clinic today to discuss the possibility of a genetic predisposition to cancer, and to further clarify her risks, as well as her family members' risks for cancer. HISTORY OF PRESENT ILLNESS: Sully Enriquez is a 34 year old female with no personal history of cancer. PAST MEDICAL HISTORY Diagnosis Date Insomnia Kidney [...] OF colonoscopy x 2 SALPINGECTOMY Bilateral 2010 CANCER SURVEILLANCE HISTORY: Mammograms: Yes / 2023 Breast MRI's: Yes / April 2024, BI-RADS 2 Breast Biopsies: Yes / fibroadenoma Colonoscopy: Yes / 2023 EGD: No GI Polyps: Yes / one polyp, no pathology Dermatology: No REPRODUCTIVE HISTORY AND PERSONAL RISK ASSESSMENT FACTORS: Uterus Intact: No / endometriosis Ovaries Intact: Yes / fallopian tubes removed SOCIAL HISTORY: Social History Tobacco Use Smoking status: Never Smokeless tobacco: Never Substance Use Topics Alcohol use: Yes Comment: about 1-2 times per month will have ~2 drinks Drug use: Never FAMILY HISTORY: We obtained a detailed, 4-generation family history. Significant diagnoses are listed below: FAMILY HISTORY Problem Relation Age of Onset Lung Cancer Father Heart Attack Father Osteoporosis Maternal Grandmother Cancer Maternal Grandmother IN NECK Breast Cancer Paternal Grandmother Breast Cancer Paternal Aunt unsure of age at diagnosis Breast Cancer Paternal Aunt diagnosed in her 40s The patient's ancestors are of [place] and [place] descent. There is no known Ashkenazi Faith ancestry. There is no known consanguinity. A copy of the patient's pedigree will be available under the scanned documents tab following today's visit. GENETIC COUNSELING RISK ASSESSMENT, DISCUSSION, AND SUGGESTED FOLLOW UP: We reviewed the natural history and genetic etiology of sporadic, familial and hereditary cancer syndromes. The patient's family history is potentially suggestive of: a hereditary cancer syndrome. We discussed that the best person to begin with genetic testing is a family member with a history of cancer. The patient's paternal aunt who was diagnosed with breast cancer would be the most appropriate relative for genetic testing. However, this relative is unavailable for testing. Therefore we discussed the limitations of interpreting tests results for an unaffected individual. The patient meets NCCN testing criteria since her paternal aunt had a personal history of breast cancer diagnosed <= 50 years of age. We discussed that identification of a hereditary cancer syndrome may help her care providers tailorher medical management. If a mutation is detected, the National Comprehensive Cancer Network and/orepert opinion recommendations could include increased cancer surveillance and prophylactic surgeryoptions. If a mutation is detected, the patient will be referred back to the referring provider andto any additional appropriate care providers to discuss the relevant options. Inheritance of hereditary cancer syndromes was discussed with the patient. If a mutation is not found in the patient, this will decrease the likelihood of a hereditary cancersyndrome for the patient, however it cannot rule it out as the explanation for the family history of cancer. Cancer surveillance options would be discussed for the patient according to the appropriate standard National Comprehensive Cancer Network and [place] Cancer Society guidelines, with consideration of their personal and family history risk factors. In this case, the patient will be referred back to their care providers for discussions of management. Based on this assessment of the patient's family and personal history, genetic testing is recommended. After considering the risks, benefits, and limitations, the patient chose to pursue and provided informed consent for the following testing: Multi-Cancer panel through [facility]. The Multi-Cancer Panel includes AIP, ALK, APC, CHERIE, AXIN2, BAP1, BARD1, BLM, BMPR1A, BRCA1, BRCA2, BRIP1, CDC73, CDH1, CDK4, CDKN1B, CDKN2A, CHEK2, CTNNA1, DICER1, EGFR, EPCAM, FH, FLCN, GREM1, HOXB13, KIT, LZTR1, MAX, MBD4, MEN1, MET, MITF, MLH1, MSH2, MSH3, MSH6, MUTYH, NF1, NF2, NTHL1, PALB2, PDGFRA, PMS2, POLD1, POLE, POT1, WZYCU8I, PTCH1, PTEN, RAD51C, RAD51D, RB1, RET, SDHA, SDHAF2, SDHB, SDHC, SDHD, SMAD4, SMARCA4, SMARCB1, SMARCE1, STK11, SUFU, MTJA635, TP53, TSC1, TSC2, and VHL The Multi-Cancer panel looks at genes associated with cancers of the breast, gynecologic tract (ovarian, uterine/endometrial), gastrointestinal system (colorectal, gastric, pancreatic), endocrine glands (thyroid, parathyroid, pituitary, adrenal glands), genitourinary tract (renal/urinary tract, prostate), skin (melanoma, basal cell carcinoma), and brain/nervous system. We discussed that an NGS panel can rarely result in an unexpected finding which may or may not be related to the presenting phenotype. We discussed that [employer] may call the patient regarding billing. The patient should watch for this communication and respond promptly. The patient should contact [employer] directly with any billing questions (ph. [phone] or [email or web address]). Per the patient's request, we will contact her by [employer] or telephone to review these results. A follow up genetic counseling visit will be scheduled if requested. The patient was seen for a total of 20 minutes, greater than 50% of which was spent [id number] counseling. This plan is being carried out under the oversight of Dr. Jennifer Rashid. This note will also be sent to the referring provider via the electronic medical record. Tegan Nichols MS, [facility] CC: Dr. Prince Rashid documented in this encounterSt. [facility] History of Present illness Narrative* Lucero Belle, - 05/27/2024 3:00 PM EST Images from the original note were not included. Sully Enriquez 1990 Sully Enriquez is a 34 y.o. female presents with chief complaint of bloody nipple discharge (Breast MRI done) HPI: HPI Sully was recently operated on (Dec 2023) at [facility] for a right breast fibroadenoma. She had a mamm & US following the surgery to get new baseline images, but since Sully was still having breast pain a bilateral MRI was done. Sully states she has occasional bloody nipple discharge from the right nipple that is spontaneous in her bra or on her shirt. She does have bilateral nipple piercing's. SUBJECTIVE: MEDICATIONS: ALLERGIES Current Outpatient Medications Medication Instructions acetaminophen (TYLENOL) 650 mg, Every 6 hours PRN ALPRAZolam (XANAX) 2 mg, 2 times daily PRN montelukast (Singulair) 10 MG tablet TAKE 1 TABLET BY MOUTH EVERY DAY FOR 30 DAYS tiZANidine (Zanaflex) 4 MG tablet TAKE 1 TABLET BY MOUTH EVERY 8 HOURS NEEDED FOR BACK SPAMS valACYclovir (Valtrex) 1 g tablet As needed Allergies Allergen Reactions Ceftriaxone Other Reaction(s): Mean Dicyclomine Hcl Hydrocodone Ketorolac Itching and Unknown Lorazepam Unknown Morphine Unknown Nitrofurantoin Macrocrystal Unknown Penicillins Unknown Other Reaction(s): Unknown Asa child Asa child Zolpidem Unknown Azithromycin Rash and Unknown Other Reaction(s): Itching Ciprofloxacin Itching, Rash and Unknown Metoclopramide Itching, Rash and Unknown And anxiety PAST MEDICAL HISTORY: SOCIAL HISTORY SURGICAL HISTORY: Past Medical History: Diagnosis Date Bacterial vaginosis Fibrocystic breast Foot fracture, left 2023 no surgery H/O cold sores POTS (postural orthostatic tachycardia syndrome) Pyelonephritis Recurrent kidney stones Seizure (CMS/HCC) non epileptic Vaginal odor Social History Tobacco Use Smoking status: Never Smokeless tobacco: Never Substance Use Topics Alcohol use: Yes Alcohol/week: 2.0 standard drinks of alcohol Types: 2 Cans of beer per week Comment: A month Drug use: Never Past Surgical History: Procedure Laterality Date BI US GUIDED BREAST LOCALIZATION AND BIOPSY RIGHT Right 07/10/2023 BI US GUIDED BREAST LOCALIZATION AND BIOPSY RIGHT CERVICAL BIOPSY W/ LOOP ELECTRODE EXCISION 2010 CYSTOSCOPY W/ urethral dilation ENDOMETRIAL ABLATION 2016 HYSTERECTOMY 05/02/2022 [facility], cauterization of pelvic endometriosis implant KIDNEY SURGERY Left stint LITHOTRIPSY 05/2020 NEPHROSTOMY Right tube OVARIAN CYST REMOVAL Right SALPINGECTOMY Bilateral 2016 FAMILY HISTORY Family History Problem Relation Name Age of Onset Lung cancer Father Breast cancer Father's Sister 40 - 49 not COD Brain Aneurysm Father's Sister Breast cancer Father's Sister 40 - 49 not COD Lung cancer Father's Sister COD Breast cancer Paternal Grandmother 40 - 50 went into remission, not COD Emphysema Paternal Grandmother COPD Paternal Grandmother COD Colon cancer Neg Hx Ovarian cancer Neg Hx REVIEW OF SYMPTOMS: Review of Systems Constitutional: Negative for diaphoresis and unexpected weight change. HENT: Negative for hearing loss, tinnitus and voice change. Respiratory: Negative for shortness of breath. Cardiovascular: Negative for chest pain and palpitations. Musculoskeletal: Negative for arthralgias. Neurological: Negative for dizziness, seizures and headaches. All other systems reviewed and are negative. Hematological: Negative for adenopathy. Does not bruise/bleed easily. OBJECTIVE: Visit Vitals Ht 5' 5 Wt 230 lb BMI 38.27 kg/m OB Status Hysterectomy Smoking Status Never BSA 2.18 m Physical Exam Exam conducted with a desk operator present. HENT: Head: Normocephalic. Cardiovascular: Rate and Rhythm: Normal rate and regular rhythm. Pulmonary: Effort: Pulmonary effort is normal. Breath sounds: Normal breath sounds. Chest: Comments: Bilateral supraclavicular, infraclavicular, bicipital and axillary lymph nodes were foundto be normal. Each breast was examined in the sitting and supine position, there was no evidence ofmasses, dimpling or discharge in either breast. Bilateral nipple piercing's. A well healed lumpectomy scar noted in the right breast LOQ. Abdominal: General: Abdomen is flat. Bowel sounds are normal. Palpations: Abdomen is soft. Skin: General: Skin is warm and dry. Neurological: Mental Status: She is alert. ASSESSMENT AND PLAN: Assessment/Plan Problem List Items Addressed This Visit Bloody discharge from right nipple - Primary Sully is status post surgical excision of biopsy-proven fibroadenoma in the right breast 8:00 position in December 2023 at the [facility] . She underwent diagnostic right mammogram and ultrasound 03/12/2024 with reported benign findings. Per the patient's office visit note of 03/12/2024, the patient reported experiencing nonspontaneous bloody right discharge 4-5 days prior to her appointment with a second occurrence of bloody nipple discharge the following day noted to be spontaneous. Clear nipple discharge reported several months prior. Patient noted to have nipple piercings bilaterally. She had a negative bilateral breast MRI at the [facility] on 05/20/24. Sully was told to get in touch with her [employer] doctor to see if he wanted to give her a trial of control to see if that would stop the nipple drainage., Dr. Flowers referred her back to me for the nipple discharge. I had a long discussion with her specifically that all the imaging ie mammogram, US and MRI failed to identify any mass in the breast. It is possible that the nipple piercing is causing a low grade infection that occasionally causes the bloody nipple discharge. I suggest removing the piercing's to see if the drainage will resolve. She is infavor of doing that. She informed me that [facility] wants to do a 6 month follow up with possiblerepeat MRI. I told her that I agree with that and she should go back to the same place that did thelast MRI so that they can be compared. She agrees with that as well. I also discussed a last resort surgical option of trying to cannulate the duct producing the blood in the OR and excising it or doing a central duct-ectomy but those operations may result in nipple distortion. She will follow up with [facility] and I will see her PRN. documented in this encounterResearch Belton [id number] Telephone encounter Note* Telephone Encounter - Prince Mon PA-C - 05/23/2024 2:59 PM EST Called patient to review results of breast MRI which did not show any suspicious masses or NME in either breast/possible correlates for spontaneous bloody/clear right nipple discharge. Extensive background enhancement bilaterally noted. Patient reports she is continuing to experience right nipple discharge in addition to severe bilateral diffuse breast pain. She states she has tried proper bra fitting, caffeine cessation, and over the counter medications (she was unsure if this was EPO or vitamin E). She is also feeling several areas of new small lumps diffusely over both breasts and expresses concern that the cause of her pain is breast cancer. We discussed that bilateral, diffuse breast pain is very rarely a sign of breast cancer especially in the setting of negative imaging and most often is hormonally-driven. Provided continued reassurance regarding her breast pain and encouraged her to try EPO and vitamin E with Voltaren for localized pain. Also advised discussing possible hormonal correlate with her head of english. In regards to her right bloody/clear spontaneous nipple discharge with negative imaging, we discussed it would be reasonable to either repeat imaging in 6 months orconsult a breast surgeon for possible central duct excision (she is s/p hysterectomy and does not plan to breastfeed in the future). Patient declined either suggestion at this time and states she will call back should she decide to proceed. Emphasized that she can always schedule a clinical exam should she have any areas of concern on self-exam. Prince Mon PA-C [facility] Work Phone: [phone]) 691-774402-02-2025 Miscellaneous Notes* Telephone Encounter - Prince Mon PA-C - 05/23/2024 2:59 PM EST Called patient to review results of breast MRI which did not show any suspicious masses or NME in either breast/possible correlates for spontaneous bloody/clear right nipple discharge. Extensive background enhancement bilaterally noted. Patient reports she is continuing to experience right nipple discharge in addition to severe bilateral diffuse breast pain. She states she has tried proper bra fitting, caffeine cessation, and over the counter medications (she was unsure if this was EPO or vitamin E). She is also feeling several areas of new small lumps diffusely over both breasts and expresses concern that the cause of her pain is breast cancer. We discussed that bilateral, diffuse breast pain is very rarely a sign of breast cancer especially in the setting of negative imaging and most often is hormonally-driven. Provided continued reassurance regarding her breast pain and encouraged her to try EPO and vitamin E with Voltaren for localized pain. Also advised discussing possible hormonal correlate with her head of english. In regards to her right bloody/clear spontaneous nipple discharge with negative imaging, we discussed it would be reasonable to either repeat imaging in 6 months orconsult a breast surgeon for possible central duct excision (she is s/p hysterectomy and does not plan to breastfeed in the future). Patient declined either suggestion at this time and states she will call back should she decide to proceed. Emphasized that she can always schedule a clinical exam should she have any areas of concern on self-exam. Prince Mon PA-C documented in this encounterSt. [facility]01-30-[facility]25 History of Present illness Narrative* Keaton Banegas RN - 05/20/2024 12:40 PM EST Radiology Service Progress Note DATE OF SERVICE: May 20, 2024 TIME: 12:10 PM PATIENT WEIGHT: 230LBS PATIENT IDENTITY VERIFICATION COMPLETED USING TWO (2) STANDARD IDENTIFIERS: Name and Date of confirmed by patient verbally. FALL SCREENING: Has the patient had 2 falls in the last year or 1 fall with injury or currently using an Ambulatory Assistive Device (Walker, Cane, Wheelchair, Crutches, etc.)? No PATIENT GENDER DATA: Assigned female at . status: : No status:NO. ALLERGIES: Reviewed and unchanged CONTRAST ALLERGY: No EXAM: MRI - CONTRAST TYPE: GROUP II IV SITE: Ambulatory: A peripheral IV was started in the Right antecubital site with a Angio cath: 22 gauge. and A Saline lock was inserted per protocol IV SITE APPEARANCE: Clean,Dry and Intact 2 unsuccessful attempts by Harsha Banegas RN . Nidia Nix to try additonal IV attempts for patient SIGNATURE: Keaton Banegas RN PATIENT NAME: Sully Enriquez DATE: May 20, 2024 TIME: 12:10 PM * Charly Galaviz RT(Jd) - 05/20/2024 12:40 PM EST Radiology Service Progress Note PATIENT NAME: Sully Enriquez DATE OF SERVICE: May 20, 2024 TIME: 1:28 PM PATIENT IDENTITY VERIFICATION COMPLETED USING TWO (2) IDENTIFIERS: Name and Date of confirmedby patient verbally and Name and Date of confirmed by identification band FALL SCREENING: Has the patient had 2 falls in the last year or 1 fall with injury or currently using an Ambulatory Assistive Device (Walker, Cane, Wheelchair, Crutches, etc.)? No PATIENT GENDER DATA: Assigned female at . status: : No status:N/A PATIENT RELEVANT IMPLANT DATA REVIEWED: Yes PATIENT PRESENTS WITH AN IMPLANTABLE OR ATTACHED SOCIAL SERVICE LIAISON: No RADIOLOGY DEPARTMENT: MR; Exam(s) Completed: Chest: Breast PERIPHERAL IV DATA: Site assessment: Clean,Dry and Intact, Site disposition Discontinued SIGNED BY: RT Yovanny(R) May 20, 2024 1:28 PM documented in this encounterSt. [facility] Hospital01-30-2025 NoteHNO ID: [id number] Author: KEATON BANEGAS RN Service: Nursing Author Type: Registered Nurse Type: Progress Notes Filed: 05/20/2024 12:26 Note Text: Radiology Service Progress Note DATE OF SERVICE: May 20, 2024 TIME: 12:10 PM PATIENT WEIGHT: 230LBS PATIENT IDENTITY VERIFICATION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 HAVE A RESPONSIBLE PUDDLER HELPER TAKE YOU HOME. A DIETETIC TECHNICIAN REGISTERED OR MIXER OPERATOR HELPER HOT METAL CANNOT BE MADE A RESPONSIBLE PUDDLER HELPER. - We recommend that a responsible person stays with you overnight to take care of you. - You cannot stay in a hotel alone after outpatient surgery. You will not be permitted to have yoursurgery, if you do not have someone to take care of you. If you already have an Advance Directive, please fax a copy to [phone] or email to for it to be [...] day. Camila Russo PA-C documented in this encounterSt. Francis Hospital09-17-2024 History and physical note * Camila Russo [...] surgeon This is a virtual visit using Nintexhart video visit. It required patient-provider interaction for themedical decision making as documented below. REASON FOR VISIT: Sully Enriquez is a 33 year old female who is scheduled for Procedure(s): RIGHT LIV EXCISIONAL BIOPSY (Right) at the request of Dr. Jackie Sutton, Jackie Marcum MD for consultation. My final recommendation will [...] virtual visit. The visit was conducted using TopRealtyt video visit. It required patient-provider interaction for the medical decision making as documented below. I have communicated my name and active licensure. The patient's identity and physical location wereverified at the time of this visit. Either the patient or their legal provider relations representative has been informed of the risks [...] chest pain, CHF, DVT/PE, hyperlipidemia, hypertension, recent MN, PTCA, PVD and open heart surgery. GI: Negative for: dysphagia, GERD, GI bleed <30 days, liver disease and ETOH >2 drinks/day. : +hx recurrent UTIs, recently tx'd for infection, finished course of antibiotic, sxs resolved Positive for: nephrolithiasis (IN PAST, had surgery). Negative for: dysuria, frequent urination, hematuria, urinary incontinence and renal failure. CASH POSTER: Negative for abnormal vaginal bleeding, abnormal vaginal [...] or any previous visit (from the past 75226 hour(s)). Instructions Given to Patient: Instructions located in the after visit summary. Patient given verbal and written preop instructions and voices comprehension and compliance. SIGNATURE: Camila Russo PA-C PATIENT NAME: Sully Enriquez DATE: January 06, 2024 TIME: 1:51 PM PAGER[facility]CONTACT #: [facility] History and physical note* Camila Russo PA-C [...] surgeon This is a virtual visit using ipDatatel video visit. It required patient-provider interaction for themedical decision making as documented below. REASON FOR VISIT: Sully Enriquez is a 33 year old female who is scheduled for Procedure(s): RIGHT LIV EXCISIONAL BIOPSY (Right) at the request of Dr. Jackie Sutton, Jackie Marcum MD for consultation. My final recommendation will [...] virtual visit. The visit was conducted using ipDatatel video visit. It required patient-provider interaction for the medical decision making as documented below. I have communicated my name and active licensure. The patient's identity and physical location wereverified at the time of this visit. Either the patient or their legal provider relations representative has been informed of the risks [...] chest pain, CHF, DVT/PE, hyperlipidemia, hypertension, recent MN, PTCA, PVD and open heart surgery. GI: Negative for: dysphagia, GERD, GI bleed <30 days, liver disease and ETOH >2 drinks/day. : +hx recurrent UTIs, recently tx'd for infection, finished course of antibiotic, sxs resolved Positive for: nephrolithiasis (IN PAST, had surgery). Negative for: dysuria, frequent urination, hematuria, urinary incontinence and renal failure. CASH POSTER: Negative for abnormal vaginal bleeding, abnormal vaginal [...] or any previous visit (from the past 90925 hour(s)). Instructions Given to Patient: Instructions located in the after visit summary. Patient given verbal and written preop instructions and voices comprehension and compliance. SIGNATURE: Camila Russo PA-C PATIENT NAME: Sully Enriquez DATE: January 06, 2024 TIME: 1:51 PM PAGER/CONTACT #: documented in this encounterSt. Francis Hospital09-13-2024 Telephone encounter Note * Telephone Encounter - Yessenia Dickinson PA-C - 01/02/2024 11:24 AM EDT [...] please contact patient to reschedule? Thank you! Yessenia Dickinson PA-C P[facility] Work Phone: 1(888) 194-614109-13-2024 Miscellaneous Notes* Telephone Encounter - Yessenia Dickinson PA-C - 01/02/2024 11:24 AM EDT [...] please contact patient to reschedule? Thank you! Yessenia Dickinson PA-C PACC documented in this encounterSt. Francis Hospital09-11-2024 Telephone encounter Note * Telephone Encounter - Candida Camacho APRN.CNP - 12/31/2023 3:03 PM EDT Patient was scheduled for virtual PACC appt at 1500 today. Patient did not check in for visit. Called patient at 1505, stated they forgot and needed to reschedule This message routed to PACC schedulers to contact patient to reschedule PACC appt. Candida Camacho APRN.CNP [facility] Work Phone: 1(762) 431-481009-11-2024 Miscellaneous Notes* Telephone Encounter - Candida Camacho APRN.CNP - 12/31/2023 3:03 PM EDT Patient was scheduled for virtual PACC appt at 1500 today. Patient did not check in for visit. Called patient at 1505, stated they forgot and needed to reschedule This message routed to PACC schedulers to contact patient to reschedule PACC appt. Candida Camacho APRN.CNP documented in this encounterSt. Francis Hospital09-09-2024 Telephone encounter Note * Telephone Encounter - Edgard Cole MD - 12/29/2023 12:19 PM EDT I have reviewed and approved the localization plan. Images dated 09/08/2023 are annotated. Radiologist: Edgard Cole MD [facility] Work Phone: 1(928) 420-189809-09-2024 Miscellaneous Notes* Telephone Encounter - Edgard Cole MD - 12/29/2023 12:19 PM EDT I have reviewed and approved the localization plan. Images dated 09/08/2023 are annotated. Radiologist: Edgard Cole MD * Telephone Encounter - Naresh Wallis - 12/26/2023 3:22 PM EDT LOCALIZATION IMAGE REVIEW (Please do NOT submit until entire workup complete) (if > 3 reflectors to be placed in one breast, please review with radiologist) Sully Enriuqez [id number] 1990 WORK- UP COMPLETE? Yes Order Placed Yes Right - Site 1 Location 8:00 4-5cm fn Clip Shape Coil Clip Clip Migration No Pathology FibroAdenoma Preferred Localization liv * If clip migrated, please review with radiologist This Form Has Been Completed By Naresh Wallis On Behalf Of Dr. Sutton documented in this encounterSt. Francis Hospital09-06-2024 Telephone encounter Note * Telephone Encounter - Naresh Wallis - 12/26/2023 3:22 PM EDT LOCALIZATION IMAGE REVIEW (Please do NOT submit until entire workup complete) (if > 3 reflectors to be placed in one breast, please review with radiologist) Sully Enriquez [id number] 1990 WORK- UP COMPLETE? Yes Order Placed Yes Right - Site 1 Location 8:00 4-5cm fn Clip Shape Coil Clip Clip Migration No Pathology FibroAdenoma Preferred Localization liv * If clip migrated, please review with radiologist This Form Has Been Completed By Naresh Wallis On Behalf Of Dr. Sutton [facility] History and physical note* Jackie Sutton MD - 12/26/2023 1:00 PM EDT Images from the original note were not included. [facility] Department of General Surgery [facility] REASON for TODAY'S VISIT: Patient presents with: New Patient REFERRAL: Referring Provider: Franchesca Man PCP: Keli Strickland NP, RESIDENTIAL SUBSTANCE ABUSE COUNSELOR My clinic note and plan will be [...] - Self palpated RIGHT breast mass. 06/25/23 ([facility]) - diagnostic bilateral mammogram/US - diffuse heterogenous density. In theright breast at 8:00 approximately 4 to 5 cm from the nipple, is a hypoechoic avascular area that measures 2.0 x 1.6 x 1.1 cm. In the right upper outer quadrant of the breast at 2.8 x 1.0 x 2.8 cm lymph node is seen. There is no cortical thickening. 07/07/23 ([facility] - US guided CNB 8:00 4-5 CMFN [...] with coil clip placement: Fibroadenoma.Concordant. BREAST & CASH POSTER RELATED HISTORY: Prior biopsies: as above Prior surgeries: as above Implants: No Contraceptive use: Current: none Past: OCPs in 2011 at age 20 Exogenous hormone use: none Prior radiation: There is no history of Radiation Therapy. 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 Stays [...] . Physical Exam Exam conducted with a desk operator present. Constitutional: General: She is not in [...] Judgment normal. Ptosis: Grade II BREAST IMAGING: F Breast Imaging was reviewed. Excerpts from Breast Imaging Studies Results US BREAST LTD RIGHT ([id number]) (Order [id number]) Patient Info Patient Name Sex Sully Adam ([id number]) Female 1990 08/07/2023 1:24 PM - Radiology, Oru In Impression IMPRESSION: BENIGN FINDING No sonographic abnormality at the site of clinical concern at 9:00. Circumscribed mass right breast 8:00 which is previously biopsied and reportedly benign. Clinical follow-up is recommended. Annual screening mammogram is recommended per NCCN guidelines based on patient's risk factors for breast cancer. Lizbeth Winston M.D. ns/:08/07/2023 13:24:03 Operations Support Analyst(s): RT Mirtha(Jd)(M), [facility] [place] Ultrasound BI-RADS: 2 Benign finding Multiple national [...] Family Medicine, and Medical/Surgical Oncology, the [facility] has carefully reviewed the data and [...] their providers when to stop screening mammograms. Biochemistry Professor: Vikas Transcribe Date/Time: Aug 07 2023 11:56A Dictated by : LIZBETH WINSTON MD This examination was interpreted and the report reviewed and electronically signed by: LIZBETH WINSTON MD on Aug 07 2023 1:24PM EST Results-Findings * * *Final Report* * * DATE OF EXAM: Aug 07 2023 12:08PM [facility] [place] [facility] US BREAST LTD RT / PROCEDURE REASON: multiple diagnoses * * * * Physician Interpretation * * * * RESULT: #[id number] - [facility] US BREAST LTD RT LIMITED [...] biopsied mass which is reportedly benign. Results [facility] DIAG W HARVEY RIGHT ([id number]) (Order [id number]) Patient Info Patient Name Sex Sully Adam ([id number]) Female 1990 09/11/2023 2:33 PM - Radiology, Oru In Addenda * * *Final Report* * * * * * SEE BOTTOM OF REPORT FOR ADDENDED TEXT * * * DATE OF EXAM: Sep 08 2023 2:52PM [facility] [place] [facility] DIAG W HARVEY RT / PROCEDURE REASON: multiple diagnoses * * * * Physician Interpretation * * * * RESULT: FINAL REPORT #[id number] - [facility] DIAG W HARVEY RT #[id number] - [facility] US BIOPSY BREAST RT ULTRASOUND [...] Almanzar performed the entire procedure without an assistant secretary. Audible Time Out Time: 1420 Procedure Start [...] scheduled the surgical consultation. Lea Almanzar M.D., jr/vikas:09/11/2023 14:32:49 Operations Support Analyst(s): RT Mane(R)(M), [facility] Multiple national specialty organizations have released breast cancer screening guidelines for women at average risk for developing breast cancer - guidelines that are based on both evidence and opinion, yet differ on when to start and how often to screen for breast cancer. With representation from Breast Imaging, Internal Medicine, Women's Health, Family Medicine, and Medical/Surgical Oncology, the [facility] has carefully reviewed the data and [...] their providers when to stop screening mammograms. Biochemistry Professor: Vikas Transcribe Date/Time: Sep 08 2023 2:52P Dictated by : LEA ALMANZAR MD This examination was interpreted and the report reviewed and electronically signed by: LEA ALMANZAR MD on Sep 08 2023 4:24PM EST This document has been addended by: LEA ALMANZAR MD on Sep 11 2023 2:32PM EST PATHOLOGY: SURGICAL PATHOLOGY: [id number] Order: [id number] Collected 09/08/2023 2:04 PM Status: Final result [...] opportunity to ask questions. Additional workup needed: LIV cassandra architect placement by BOTH (coil + unspecified) clips in RIGHT breast - fibroadenoma Interdisciplinary care and follow up: SURGICAL ONCOLOGY: Jackie Sutton MD Tentative surgical plan: RIGHT breast LIV-Auditor guided excision Consents were sent via Estadeboda. Postoperative analgesia was discussed. She WILL need prescriptions for tylenol, motrin, & gabapentin on the day of surgery. GLP-1 agonist or SGLT2 inhibitor use: No PRIMARY CARE PHYSICIAN: Ms. Enriquez is followed by Keli Strickland NP, RESIDENTIAL SUBSTANCE ABUSE COUNSELOR as scheduled. Ms. Enriquez will return to our office postoperatively. She has our names and numbers to contact us if she has any questions or concerns. Future Appointments Date Time Provider Department Center 02/17/2024 1:00 PM [facility], FACOG Breast Surgical Oncology & Benign Gynecology [address] [place] [address] Appointment cc: Franchesca Man [address] [facility] [address] [facility] [address] Keli Strickland NP, RESIDENTIAL SUBSTANCE ABUSE COUNSELOR I spent a total of 30 minutes on the date of the service which included preparing to see the patient, uctu-be-ddht patient care, completing clinical documentation, obtaining and/or reviewing separately obtained history, performing a medically appropriate examination, and counseling and educating the patient/family/caregiver. [facility]09-06-[facility] History and physical note* Jackie Sutton MD - 12/26/2023 1:00 PM EDT Images from the original note were not included. [facility] Department of General Surgery [facility] REASON for TODAY'S VISIT: Patient presents with: New Patient REFERRAL: Referring Provider: Franchesca Man PCP: Keli Strickland NP, RESIDENTIAL SUBSTANCE ABUSE COUNSELOR My clinic note and plan will be [...] - Self palpated RIGHT breast mass. 06/25/23 ([facility]) - diagnostic bilateral mammogram/US - diffuse heterogenous density. In theright breast at 8:00 approximately 4 to 5 cm from the nipple, is a hypoechoic avascular area that measures 2.0 x 1.6 x 1.1 cm. In the right upper outer quadrant of the breast at 2.8 x 1.0 x 2.8 cm lymph node is seen. There is no cortical thickening. 07/07/23 ([facility] - US guided CNB 8:00 4-5 CMFN [...] with coil clip placement: Fibroadenoma.Concordant. BREAST & CASH POSTER RELATED HISTORY: Prior biopsies: as above Prior surgeries: as above Implants: No Contraceptive use: Current: none Past: OCPs in 2011 at age 20 Exogenous hormone use: none Prior radiation: There is no history of Radiation Therapy. 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 Stays [...] . Physical Exam Exam conducted with a desk operator present. Constitutional: General: She is not in [...] Judgment normal. Ptosis: Grade II BREAST IMAGING: [facility] Breast Imaging was reviewed. Excerpts from Breast Imaging Studies Results US BREAST LTD RIGHT ([id number]) (Order [id number]) Patient Info Patient Name Sex Sully Adam ([id number]) Female 1990 08/07/2023 1:24 PM - Radiology, Oru In Impression IMPRESSION: BENIGN FINDING No sonographic abnormality at the site of clinical concern at 9:00. Circumscribed mass right breast 8:00 which is previously biopsied and reportedly benign. Clinical follow-up is recommended. Annual screening mammogram is recommended per NCCN guidelines based on patient's risk factors for breast cancer. Lizbeth Winston M.D. ns/:08/07/2023 13:24:03 Operations Support Analyst(s): RT Mirtha(R)(M), [facility] BI-RADS: 2 Benign finding Multiple national [...] Family Medicine, and Medical/Surgical Oncology, the [facility] has carefully reviewed the data and [...] their providers when to stop screening mammograms. Biochemistry Professor: Vikas Transcribe Date/Time: Aug 07 2023 11:56A Dictated by : LIZBETH WINSTON MD This examination was interpreted and the report reviewed and electronically signed by: LIZBETH WINSTON MD on Aug 07 2023 1:24PM EST Results-Findings * * *Final Report* * * DATE OF EXAM: Aug 07 2023 12:08PM [place] 0594 - [facility] US BREAST LTD RT / PROCEDURE REASON: multiple diagnoses * * * * Physician Interpretation * * * * RESULT: #[id number] - [facility] US BREAST LTD RT LIMITED [...] biopsied mass which is reportedly benign. Results [facility] DIAG W HARVEY RIGHT ([id number]) (Order [id number]) Patient Info Patient Name Sex Sully Adam ([id number]) Female 1990 09/11/2023 2:33 PM - Radiology, Oru In Addenda * * *Final Report* * * * * * SEE BOTTOM OF REPORT FOR ADDENDED TEXT * * * DATE OF EXAM: Sep 08 2023 2:52PM [facility] [place] [facility] DIAG W HARVEY RT / PROCEDURE REASON: multiple diagnoses * * * * Physician Interpretation * * * * RESULT: FINAL REPORT #[id number] - [facility] MARCO ALFARO RT #[id number] - [facility] US BIOPSY BREAST RT ULTRASOUND [...] Almanzar performed the entire procedure without an assistant secretary. Audible Time Out Time: 1420 Procedure Start [...] scheduled the surgical consultation. Lea Almanzar M.D., jr/vikas:09/11/2023 14:32:49 Operations Support Analyst(s): RT Mane(R)(M), [facility] Multiple national specialty organizations have released breast cancer screening guidelines for women at average risk for developing breast cancer - guidelines that are based on both evidence and opinion, yet differ on when to start and how often to screen for breast cancer. With representation from Breast Imaging, Internal Medicine, Women's Health, Family Medicine, and Medical/Surgical Oncology, the [facility] has carefully reviewed the data and [...] their providers when to stop screening mammograms. Biochemistry Professor: Viaks Transcribe Date/Time: Sep 08 2023 2:52P Dictated by : LEA ALMANZAR MD This examination was interpreted and the report reviewed and electronically signed by: LEA ALMANZAR MD on Sep 08 2023 4:24PM EST This document has been addended by: LEA ALMANZAR MD on Sep 11 2023 2:32PM EST PATHOLOGY: SURGICAL PATHOLOGY: [id number] Order: [id number] Collected 09/08/2023 2:04 PM Status: Final result [...] opportunity to ask questions. Additional workup needed: LIV cassandra architect placement by BOTH (coil + unspecified) clips in RIGHT breast - fibroadenoma Interdisciplinary care and follow up: SURGICAL ONCOLOGY: Jackie Sutton MD Tentative surgical plan: RIGHT breast LIV-Auditor guided excision Consents were sent via [employer]. Postoperative analgesia was discussed. She WILL need prescriptions for tylenol, motrin, & gabapentin on the day of surgery. GLP-1 agonist or SGLT2 inhibitor use: No PRIMARY CARE PHYSICIAN: Ms. Enriquez is followed by Keli Strickland NP, RESIDENTIAL SUBSTANCE ABUSE COUNSELOR as scheduled. Ms. Enriquez will return to our office postoperatively. She has our names and numbers to contact us if she has any questions or concerns. Future Appointments Date Time Provider Department Center 02/17/2024 1:00 PM Leobardo Anderson MD [facility] Monalisa Sutton MD, FACOG Breast Surgical Oncology & Benign Gynecology [facility] [address] [place] [address] Appointment cc: Franchesca Man [address] [place] [phone] Keli Strickland NP, RESIDENTIAL SUBSTANCE ABUSE COUNSELOR I spent a total of 30 minutes on the date of the service which included preparing to see the patient, zxev-mu-htmj patient care, completing clinical documentation, obtaining and/or reviewing separately obtained history, performing a medically appropriate examination, and counseling and educating the patient/family/caregiver. documented in this [facility]St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 The patient is present with her spouse, Angelika. The couple live together in [place], [place], denying any financial strains. She is employed. No active community resource. Her primary care provider is Dr. Mario Glasgow at [facility]. Her discharge plan is home.[facility]05-24-2024 Telephone encounter Note* Telephone Encounter - Franchesca Man PA-C - 09/12/2023 10:09 AM EDT Spoke to patient and relayed results from biopsy (benign FA). We discussed that because the FA is 2cm in size and bothersome it is reasonable to see a breast surgeon to discuss the possibility of excision. She is agreeable and voices understanding. Consult placed. [facility] Miscellaneous Notes* Telephone Encounter - Franchesca Man PA-C - 09/12/2023 10:09 AM EDT Spoke to patient and relayed results from biopsy (benign FA). We discussed that because the FA is 2cm in size and bothersome it is reasonable to see a breast surgeon to discuss the possibility of excision. She is agreeable and voices understanding. Consult placed. documented in this encounterSt. [facility]05-23-2024 Telephone encounter Note * Telephone Encounter - Franchesca Man PA-C - 09/11/2023 3:24 PM EDT Called pt to discuss biopsy result and recommendations. No answer, will try back tomorrow morning. [facility] Miscellaneous Notes* Telephone Encounter - Franchesca Man PA-C - 09/11/2023 3:24 PM EDT Called pt to discuss biopsy result and recommendations. No answer, will try back tomorrow morning. documented in this encounterSt. [facility] Hospital05-23-2024 Telephone encounter Note * Telephone Encounter - Lou Miller RN - 09/11/2023 2:29 PM EDT Called patient to notify the breast pathology results are fibroadenoma per Dr. Almanzar. Patient willcall back to assist with surgical consult appt. Dr. Almanzar is aware. [facility] Miscellaneous Notes* Telephone Encounter - Lou Millre RN - 09/11/2023 2:29 PM EDT Called patient to notify the breast pathology results are fibroadenoma per Dr. Almanzar. Patient willcall back to assist with surgical consult appt. Dr. Almanzar is aware. documented in this encounterSt. [facility] Hospital05-20-2024 Instructions* Patient Education - Maritza Rodney RT(Jd) [...] MATERIAL: Homegoing instructions REFERRAL (RECOMMENDATION): None [facility] Miscellaneous Notes* Patient Education - Maritza Rodney RT(dJ) - 09/08/2023 2:02 PM EDT AMBULATORY PATIENT [...] instructions REFERRAL (RECOMMENDATION): None documented in this encounterSt. [facility] Hospital04-22-2024 Telephone encounter Note * Telephone Encounter - Franchesca Man PA-C - 08/11/2023 10:03 AM EDT Spoke to patient and gave her results of over-read. She wants to proceed with biopsy. Order placed. [facility] Miscellaneous Notes* Telephone Encounter - Franchesca Man PA-C - 08/11/2023 10:03 AM EDT Spoke to patient and gave her results of over-read. She wants to proceed with biopsy. Order placed. documented in this encounterSt. [facility] Hospital04-18-2024 History of Present illness Narrative* Marilyn Jarrell [...] PATIENT PRESENTS WITH AN IMPLANTABLE OR ATTACHED SOCIAL SERVICE LIAISON: No RADIOLOGY DEPARTMENT: Mammography PERIPHERAL IV DATA: Not applicable SIGNED BY: HAWA Gasca) August 07, 2023 12:36 PM [place] [id number] NoteHNO ID: [id number] Author: MARILYN JARRELL RT(R) Service: Radiology Author [...] PATIENT PRESENTS WITH AN IMPLANTABLE OR ATTACHED SOCIAL SERVICE LIAISON: No RADIOLOGY DEPARTMENT: Mammography PERIPHERAL IV DATA: Not applicable SIGNED BY: RT Campos(R) August 07, 2023 12:36 [facility]04-18-2024 History of Present illness Narrative* Franchesca Man PA-C - 08/07/2023 10:30 AM EDT MEDICAL BREAST PATIENT NAME: Sully Enriquez 08/07[birth year]23 REFERRAL: She is self referred for an opinion regarding right breast biopsy. HISTORY of PRESENT ILLNESS: Sully Enriquez is a 33 year old year old premenopausal woman who [facility] [place] today for second opinion of right [...] seen for her breast related issues at [facility] with care as follows: 06/25/23: Diagnostic bilateral DBT and US at [facility]): - RIGHT breast 8oclock 4-5cmfn hypoechoic 2cm [...] mammograms. A prolactin was previously ordered at [facility] (06/18/23) and [facility]. A TSH was ordered today. She was referred to endocrinology. She will come back if she notices a change in the discharge or any new lumps or breast concerns. Regarding her breast pain, she is advised to completely decaffeinate her diet and have a proper brafitting. If the pain becomes severe or persistent, she may try Evening Girard Oil 1000mg twice daily for 3-4 months. She was given a breast pain informational handout. Genetics referral made: No: Reason: n/a Chemoprevention discussion: N/A The patient is advised to exercise regularly, achieve/maintain ideal body weight, and to limit alcohol consumption to less than 7 drinks weekly for breast cancer risk reduction and overall health. Her imaging will be formally over-read by [facility] breast radiology team. Based on the results [...] which included preparing to see the patient, dkuh-js-kijo patient care, completing clinical documentation, obtaining and/or [...] Phone: N/A Fax: Keli Strickland NP [address] [place] [address] documented in this encounterSt. Francis Hospital04-18-2024 NoteHNO ID: [id number] Author: FRANCHESCA MAN PA-C Service: ? Author Type: Physician Military Equipment Specialist Type: Progress Notes Filed: 08/07/2023 14:26 Note Text: MEDICAL BREAST PATIENT NAME: Sully Enriquez 08/07/2023 REFERRAL: She is self referred for an opinion regarding right breast biopsy. HISTORY of PRESENT ILLNESS: Sully Enriquez is a 33 year old year old premenopausal woman who [facility] [place] today for second opinion of right [...] seen for her breast related issues at [facility] with care as follows: 06/25/23: Diagnostic bilateral DBT and US at [facility]): - RIGHT breast 8oclock 4-5cmfn hypoechoic 2cm [...] Regional Lymph Nodes: The (more content not included)...[facility]04-10-2024 Miscellaneous Notes* Telephone Encounter - Jenny Peters MA - 07/30/2023 10:52 AM EDT Spoke with patient she is coming in because she states that she had a biopsy 06/2023 and was told itwas fibroadenoma. Patient states that she feels like her provider is not giving her all the information and would like a second opinion. She was seen at [facility] in [place] I will reach out to them to retrieve any information and imaging needed for her appointment 08/07/23 with Franchesca FINNEGAN in the Breast Center [facility] contact number is [phone]. Jenny Peters MA documented in this encounterSt. Francis Hospital04-05-2024 Miscellaneous Notes* Telephone Encounter - Jenny Peters MA - 07/25/2023 12:58 PM EDT Called patient to discuss her upcoming appointment with Franchesca Man in the breast center. I left a message asking patient to call me back @[phone]. Jenny Peters MA documented in this encounterSt. Francis Hospital01-17-2024 Evaluation note* Encounter Date Diagnosis Assessment Notes Treatment Notes Treatment Clinical Notes Apr, Anxiety (ICD-10 - F41.9) [facility] Other 10-26-2023 Evaluation note* Encounter Date Diagnosis Assessment Notes Treatment Notes Treatment Clinical Notes Jan, Anxiety (ICD-10 - F41.9) [facility] Other 10-11-2023 Evaluation note* Encounter Date Diagnosis Assessment Notes Treatment Notes Treatment Clinical Notes Jan, BMI 37.0-37.9, adult (ICD-10 - Z68.37) [facility] - eRX sent. We did discuss that she needs to do a better job with the monitoring of her diet. If her weight loss does not improve, we must consider withholding medication. She voices agreement and understanding. [facility] Other 10-03-2023 Evaluation note* Encounter Date Diagnosis Assessment Notes Treatment Notes Treatment Clinical Notes Jan, Anxiety (ICD-10 - F41.9) [facility] Other 09-01-2023 Evaluation note* Encounter Date Diagnosis Assessment Notes Treatment Notes Treatment Clinical Notes Dec, Anxiety (ICD-10 - F41.9) [facility] Other 08-24-2023 Evaluation note* Encounter Date Diagnosis Assessment Notes Treatment Notes Treatment Clinical Notes Nov, BMI 37.0-37.9, adult (ICD-10 - Z68.37) [facility] -E Rx sent. No other change today. We will recheck in 1 month. [facility] Other 08-05-2023 Hospital Discharge instructions Patient Education [...] Follow these instructions at home: Medicines Take thtv-spq-oqzlrgi and prescription medicines only as told by your health care provider. Ask your health care provider if the medicine prescribed to you: ?Requires you to avoid driving or using machinery. ?Can cause constipation. You may need to take these actions to prevent or treat constipation: ?Drink enough fluid to keep your urine pale yellow. ?Take arms-bir-blfockh or prescription medicines. ?Eat foods that are [...] is important. Where to find more information [employer] [place] [employer]: www.acog.org Office [...] Document Revised: 11/08/2020 Document Reviewed: 11/08/[address] [employer] Patient Education 2022 [employer]. 11/23/2022 01:20:40 Laparoscopic Lysis of Abdominal Adhesions [...] including vitamins, herbs, eye drops, creams, and uvtd-ftp-uiguxpq medicines. Any problems you or family members [...] provider tells you to take them. Taking fute-flu-mekdqpn medicines, vitamins, herbs, and supplements. General instructions [...] Document Revised: 12/15/2020 Document Reviewed: 12/15/[address] [employer] Patient Education 2022 [employer]. 11/23/2022 01:20:40 Adhesions, Qzck-vs-Lugk Adhesions Adhesions are strings of tissue that [...] needed. Follow these instructions at home: Take fimi-lft-ornjnqt and prescription medicines only as told by [...] Treatment may include medicines and surgery. Take zerp-sys-hewlqta and prescription medicines only as told by your doctor. This information is not intended to replace advice given to you by your health care provider. Make sure you discuss any questions you have with your health care provider. Document Revised: 12/15/2020 Document Reviewed: 12/15/[address] [employer] Patient Education 2022 [employer]. 11/23/2022 01:20:40 Abdominal Pain, Adult, Zpcf-zq-Hgpi Abdominal Pain, Adult Many things can cause belly (abdominal) pain. Most times, belly pain is not dangerous. Many cases of belly pain can be watched and treated at home. Sometimes, though, belly pain is serious. Your doctor will try to find the cause of your belly pain. Follow these instructions at home: Medicines Take zfmu-kdv-vhcrqwh and prescription medicines only as told by [...] your belly pain for any changes. Take ydrc-kmc-lvesibf and prescription medicines only as told by [...] Document Revised: 08/16/2019 Document Reviewed: 08/16/[address] [employer] Patient Education 2022 [employer]. Follow Up Care 11/22/2022 19:01:50 With:MARIO GLASGOW Address: [facility] [address] [facility] [address] [place] [address]- Business (1) When:11/26/2022 [facility]07-27-2023 Evaluation note* Encounter Date Diagnosis Assessment Notes Treatment Notes Treatment Clinical Notes Oct, BMI 37.0-37.9, adult (ICD-10 - Z68.37) [facility] - eRX sent. Call with any concerns. [facility] Other 06-27-2023 Evaluation note* Encounter Date Diagnosis [...] We will see patient back for follow-up. [facility] Other 05-30-2023 Evaluation note* Encounter Date Diagnosis Assessment Notes Treatment Notes Treatment Clinical Notes August, BMI 39.0-39.9,adult (ICD-10 - Z68.39) [facility] - eRX sent. Call with any concern. [facility] Other 05-30-2023 Evaluation note* Encounter Date Diagnosis Assessment Notes Treatment Notes Treatment Clinical Notes August, BMI 39.0-39.9,adult (ICD-10 - Z68.39) [facility] Other 12-28-2022 Evaluation note* Encounter Date Diagnosis [...] year, with out any concerns with anesthesia. [facility] Other 09-06-2022 Evaluation note* Encounter Date Diagnosis Assessment Notes Treatment Notes Treatment Clinical Notes Dec, BMI 36.0-36.9,adult (ICD-10 - Z68.36) [facility] Other 08-24-2022 Evaluation note* Encounter Date Diagnosis [...] third and final prescription of the Adipex. [facility] Other 08-03-2022 Evaluation note* Encounter Date Diagnosis Assessment Notes Treatment Notes Treatment Clinical Notes Nov, BMI 36.0-36.9,adult (ICD-10 - Z68.36) [facility] Other 07-05-2022 Evaluation note* Encounter Date Diagnosis Assessment Notes Treatment Notes Treatment Clinical Notes Oct, Conjunctivitis (ICD9-CM - 372.30) [facility] Other 06-24-2022 Evaluation note* Encounter Date Diagnosis Assessment Notes Treatment Notes Treatment Clinical Notes Sep, BMI 37.0-37.9, adult (ICD-10 - Z68.37) [facility] Rx sent. Lengthy discussion regarding side effects as well as possible outcomes of the medication. We will see her back in 1 month. Patient to call with any concerns. [facility] Other 06-24-2022 Evaluation note* Encounter Date Diagnosis Assessment Notes Treatment Notes Treatment Clinical Notes Sep, BMI 37.0-37.9, adult (ICD-10 - Z68.37) [facility] Other 06-13-2022 Evaluation note* Encounter Date Diagnosis Assessment Notes Treatment Notes Treatment Clinical Notes Sep, BMI 38.0-38.9,adult (ICD-10 - Z68.38) [facility] Other 06-09-2022 Evaluation note* Encounter Date Diagnosis [...] psychiatric diagnoses/as well as her seizure concerns. [facility] Other 04-27-2022 Hospital Discharge instructions Patient Education [...] fried and sweet foods. General instructions Take kfhl-fmn-luctvbc and prescription medicines only as told by [...] Document Revised: 07/29/2019 Document Reviewed: 04/23/[address] [employer] Patient Education 2019 [employer]. [facility] 02-09-2022 Evaluation note* Encounter Date [...] 2mg at that time of refill need. [facility] Other 01-18-2022 Evaluation note* Encounter Date Diagnosis Assessment Notes Treatment Notes Treatment Clinical Notes Apr, Dysuria (ICD-10 - R30.0) [facility] Other 01-12-2022 Evaluation note* Encounter Date Diagnosis [...] next week. She voices agreement and understanding. [facility] Other 11-17-2021 NoteHNO ID: [id number] Author: Rosalie Haile MD Service: ? Author Type: Physician Type: Progress Notes Filed: 03/08/2021 8:38 PM Note Text: [facility] Progress Note SULLY ENRIQUEZ : 1990 AGE: 31 SEX: F CSN: [id number] [facility]: [facility] LOCATION: [facility] ATTENDING PHYSICIAN: Rosalie Haile M.D. [...] follow up. Rosalie Haile M.D. Internal Medicine ESPINOZA:[id number] /[id number] [id number] NoteHNO ID: [id number] Author: Saravanan Yancey MD Service: Neurology General [...] Will await MRI results. 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 Last discharge within 30 days: No Advance Directive: Current Advance Directive: None Aging Department Supervisor Attempted to Assist with AD Completion: [...] Extended Emergency Contact Information Primary Emergency Contact: angelika strong [address]: [address] [place] [address] Mobile Relation: Significant other Secondary Emergency Contact: [...] Completely I feel financially burdened by my twq-aw-fiewzc expenses for my prescription medication:: 0 - Disagree Completely Risk Score: 0 Patient is categorized as: Low risk < 2 Are you interested in bedside delivery of your medications? No Is Patient Psychosocially Complex?: No ASSESSMENT AND PLAN: Medical Needs: Medical Needs: None Psychosocial Needs: Psychosocial Needs: Mental Health Diagnosis Mental Health Information: Coversion d/o, anxiety FREEDOM OF CHOICE EXPLAINED: [place] of Choice Given: No Reason Not Given: No placements necessary POTENTIAL TRANSITION PLANS Home Pt presents to ED s/p seizer, headache, CP, Hx diabetes (pt adamant she does not have DM), anxiety, epilepsy, conversion disorder. Independent of ADLS and iADLS, lives in a lower level duple with Angelika, 13 y/o dtr and 10 y/o son. Pt reports she is employed and drives. Does not utilize any DME, chcf or community resources. No skilled needs identified at this time. DC transportation will be provided by [place] [phone]. SIGNATURE: JULITO Lino PATIENT NAME: Sully Enriquez DATE: March 06, 2021 TIME: 4:00 PM PAGER/CONTACT #: [phone] HospitalEvaluation + Plan note No data available for this section [facility] evaluation noteNo InformationNort IDInteract Other Evaluation noteNo assessment information available [facility] Work Phone: Evaluation note* Diagnosis Disorder of breast- Primary Unspecified breast disorder [facility] Diagnosis Mastodynia- Primary Fibrocystic breast changes of both breasts Family history of breast cancer Family history of malignant neoplasm of breast Dense breasts Inconclusive mammogram Nipple discharge Other sign and symptom in breast [facility]* Diagnosis Disorder of breast Unspecified breast disorder Fibrocystic breast changes of both breasts Family history of breast cancer Family history of malignant neoplasm of breast Mastodynia [facility]* Diagnosis Onset Date Resolution Status Fatigue noneactive BMI 39.0-39.9,adult noneacti ve [facility] Work Phone: Evaluation note* Diagnosis Fibrocystic breast changes of both breasts Family history of breast cancer Family history of malignant neoplasm of breast Mastodynia Dense breasts Inconclusive mammogram Nipple discharge Other sign and symptom in breast Mass of right breast, unspecified quadrant documented in this encounter [facility] note* Diagnosis Breast fibroadenoma, right- Primary Fibrocystic breast changes of both breasts Mastodynia Dense breasts Inconclusive mammogram [facility] this [facility]* Diagnosis Onset Date Resolution Status Fatigue noneactive BMI 39.0-39.9,adult noneacti ve BMI 39.0-39.9,adult noneacti ve [facility] Work Phone: evaluykjwl note* Diagnosis Onset Date Resolution Status Fatigue noneactive BMI 39.0-39.9,adult noneacti ve BMI 39.0-39.9,adult noneacti ve BMI 38.0-38.9,adult noneacti ve [facility] Work Phone: evaluation note* Diagnosis Onset Date Resolution Status BMI 39.0-39.9,adult noneacti ve BMI 38.0-38.9,adult noneacti ve Lump of right breast acute UTI (urinary tract infection) acute BMI 38.0-38.9,adult noneacti ve [facility] Work Phone: Evaluation note* Diagnosis Breast fibroadenoma, right- Primary Preop testing Preoperative examination, unspecified Breast fibroadenoma, right documented in this encounter [facility] note* Diagnosis Breast fibroadenoma, right- Primary Breast fibroadenoma, right documented in this encounter [facility] note* Diagnosis Pre-op evaluation- Primary [...] PRN Saw neurology [facility]* Diagnosis Pre-op evaluation- Primary Preoperative examination, unspecified Seizure (HCC) Other convulsions Difficult intravenous access Other specified conditions influencing health status Obesity (BMI 30-39.9) Obesity, unspecified POTS (postural orthostatic tachycardia syndrome) Tachycardia, unspecified Rash Rash and other nonspecific skin eruption Breast fibroadenoma, right [facility]* Diagnosis Pre-op evaluation- Primary Preoperative examination, unspecified Seizure (HCC) Other convulsions Difficult intravenous access Other specified conditions influencing health status Obesity (BMI 30-39.9) Obesity, unspecified POTS (postural orthostatic tachycardia syndrome) Tachycardia, unspecified Rash Rash and other nonspecific skin eruption Breast fibroadenoma, right- Primary Fibrocystic breast changes of both breasts Post-operative state Other postprocedural status [facility]* Diagnosis Pre-op evaluation- Primary Preoperative [...] [facility]* Diagnosis Pre-op evaluation- Primary Preoperative examination, unspecified Seizure (HCC) Other convulsions Difficult intravenous access Other specified conditions influencing health status Obesity (BMI 30-39.9) Obesity, unspecified POTS (postural orthostatic tachycardia syndrome) Tachycardia, unspecified Rash Rash and other nonspecific skin eruption Mass of right breast, unspecified quadrant Nipple discharge Other sign and symptom in breast [facility] Pre-op evaluation- Primary Preoperative examination, unspecified Seizure (HCC) Other convulsions Difficult intravenous access Other specified conditions influencing health status Obesity (BMI 30-39.9) Obesity, unspecified POTS (postural orthostatic tachycardia syndrome) Tachycardia, unspecified Rash Rash and other nonspecific skin eruption Discharge from right nipple- Primary Obesity, Class II, BMI 35-39.9 Obesity, unspecified [facility] Diagnosis Onset Date Resolution Status Lump of right breast acute UTI (urinary tract infection) acute BMI 38.0-38.9,adult noneacti ve Sinusitis noneactive [facility] Work Phone: Evaluation note* Diagnosis Pre-op [...] [facility]* Diagnosis Pre-op evaluation- Primary Preoperative [...] [facility]* Diagnosis Alteration of awareness Psychogenic nonepileptic seizure (CMS/HCC) Paresthesia Disturbance of skin sensation [facility] Right arm pain- Primary Pain in limb Seizure-like activity (HCC) Other convulsions [facility] Pre-op evaluation- Primary Preoperative examination, unspecified Seizure (HCC) Other convulsions Difficult intravenous access Other specified conditions influencing health status Obesity (BMI 30-39.9) Obesity, unspecified POTS (postural orthostatic tachycardia syndrome) Tachycardia, unspecified Rash Rash and other nonspecific skin eruption Nipple discharge Other sign and symptom in breast [facility]* Diagnosis Bloody discharge from right nipple- Primary [facility] Diagnosis Pre-op evaluation- Primary Preoperative examination, unspecified Seizure (HCC) Other convulsions Difficult intravenous access Other specified conditions influencing health status Obesity (BMI 30-39.9) Obesity, unspecified POTS (postural orthostatic tachycardia syndrome) Tachycardia, unspecified Rash Rash and other nonspecific skin eruption Family history of breast cancer Family history of malignant neoplasm of breast documented [facility]* Diagnosis Breast pain- Primary Mastodynia Mood changes Unspecified episodic mood disorder Hot flashes Low libido [facility] Diagnosis Pre-op evaluation- Primary Preoperative examination, unspecified Seizure (HCC) Other convulsions Difficult intravenous access Other specified conditions influencing health status Obesity (BMI 30-39.9) Obesity, unspecified POTS (postural orthostatic tachycardia syndrome) Tachycardia, unspecified Rash Rash and other nonspecific skin eruption Mass of upper outer quadrant of left breast- Primary Mass of right breast, unspecified quadrant Fibrocystic breast changes of both breasts Mass of upper outer quadrant of left breast Mass of right breast, unspecified quadrant Fibrocystic breast changes of both breasts documented in this encounter [facility] note* Diagnosis Pre-op evaluation- Primary Preoperative examination, unspecified Seizure (HCC) Other convulsions Difficult intravenous access Other specified conditions influencing health status Obesity (BMI 30-39.9) Obesity, unspecified POTS (postural orthostatic tachycardia syndrome) Tachycardia, unspecified Rash Rash and other nonspecific skin eruption Mass of upper outer quadrant of left breast Mass of right breast, unspecified quadrant Fibrocystic breast changes of both breasts [facility]* Diagnosis Pre-op evaluation- Primary Preoperative examination, unspecified Seizure (HCC) Other convulsions Difficult intravenous access Other specified conditions influencing health status Obesity (BMI 30-39.9) Obesity, unspecified POTS (postural orthostatic tachycardia syndrome) Tachycardia, unspecified Rash Rash and other nonspecific skin eruption Abnormal finding on breast imaging- Primary Other (abnormal) findings on radiological examination of breast documented [facility]* Diagnosis Pre-op evaluation- Primary Preoperative examination, unspecified Seizure (HCC) Other convulsions Difficult intravenous access Other specified conditions influencing health status Obesity (BMI 30-39.9) Obesity, unspecified POTS (postural orthostatic tachycardia syndrome) Tachycardia, unspecified Rash Rash and other nonspecific skin eruption Abnormal finding on breast imaging Other (abnormal) findings on radiological examination of breast documented [facility]* Diagnosis Pre-op evaluation- Primary Preoperative examination, unspecified Seizure (HCC) Other convulsions Difficult intravenous access Other specified conditions influencing health status Obesity (BMI 30-39.9) Obesity, unspecified POTS (postural orthostatic tachycardia syndrome) Tachycardia, unspecified Rash Rash and other nonspecific skin eruption Nipple discharge- Primary Other sign and symptom in breast [facility] Diagnosis Plantar fasciitis- Primary Plantar fascial fibromatosis Pain of left heel [facility]* Diagnosis Right hip impingement syndrome- Primary Right hip pain Pain in joint, pelvic region and thigh [facility] - Reported* Type Description Date Medical History bipolar - 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 Medical History Seizure disorder Surgical History nephrostomy tube right 2008 Surgical History tubal ligation 2012 Surgical History LEEP 2011 Surgical History oophorectomy, bilateral 2011 Surgical History kidney stone 2019 Surgical History Right Foot Surgery 06/2021 Surgical History Right Kidney Stent 05/2021 Hospitalization History bowel obstruction, 3 dif ferent times Hospitalization History Seizures 02/2021 [facility] general Narrative - Reported* Type Description Date [...] History tubal ligation 2011 Surgical History LEEP 2011 Surgical History oophorectomy, bilateral 2011 Surgical History kidney stone 2019 Hospitalization History bowel obstruction, 3 dif ferent times Hospitalization History Seizures 02/2021 [facility] Other History general Narrative - ReportedNort [facility] Other History general Narrative - Reported* Type [...] dif ferent times Hospitalization History Seizures 02/2021 [facility] Other Hospital Discharge instructions Additional Instructions DISCHARGE [...] FOLLOW UP -[Please call the office at ([phone]) to make follow appointment before leaving the hospital]. -[2 Weeks] [ ][facility] Work Phone: Hospital Discharge instructions No data available for this section [facility] Discharge instructions* Attachments The following attachments cannot be sent through Care Everywhere. * Arm Pain (Japanese) * Seizure (Japanese) [facility] Orders* Referral to Weight Management Time Frame: 10/18/24, Location: None [facility] Work Phone: Progress note No data available for this section [facility] Diagnostic Procedure Only (Routine) - Authorized Specialty Diagnoses / Procedures Referred By Contac t Referred To Contact BR IMAGING Diagnoses Disorder of breast Procedures SAJI DIAGNOSTIC BILATERAL DIAGNOSTIC MAMMOGRAPHY COMPUTER-AIDED DETCJ Franchesca Mosquera PA-C [address] [place] [address] Br Imaging [address] [place] [address] Referral ID Status Reason Start Date Expiration Date Visits Requested Visits Authorized [id number] Authorized Auto-Generat ed Referral 08/06/2023 09/04/2024 [address] [facility] for referral (narrative)* Diagnostic Procedure Only (Routine) - Closed Specialty Diagnoses / Procedures Referred By Contac t Referred To Contact BR IMAGING Diagnoses Fibrocystic breast changes of both breasts Family history of breast cancer Mastodynia Procedures US BREAST LTD RIGHT US BREAST UNI REAL TIME WITH IMAGE LIMITED Franchesca Man PA-C [address] [place] [address] [facility] [address] [place] [address] Referral ID Status Reason Start Date Expiration Date V isits Requested Visits Authorized [id number] Closed Auto-Generate d Referral 08/07/2023 04/20/2024 [address] [facility] for referral (narrative)* Diagnostic Procedure Only (Routine) - Closed Specialty Diagnoses / Procedures Referred By Contac t Referred To Contact BR IMAGING Diagnoses Fibrocystic breast changes of both breasts Family history of breast cancer Mastodynia Dense breasts Nipple discharge Mass of right breast, unspecified quadrant Procedures US BIOPSY BREAST RIGHT BX BREAST W/DEVICE 1ST LESION ULTRASOUND GUID Franchesca Man PA-C [address] [place] [address] [facility] [address] [place] [address] Referral ID Status Reason Start Date Expiration Date V isits Requested Visits Authorized [id number] Closed Auto-Generate d Referral 08/11/2023 09/09/2024 [address] [facility] for referral (narrative)* Diagnostic Procedure Only (Routine) - New Request Specialty Diagnoses / Procedures Referred By Contac t Referred To Contact BR IMAGING Diagnoses Breast fibroadenoma, right Procedures SAJI NDL LOC W SAJI GD RIGHT PERQ DEVICE PLACEMENT BREAST LOC 1ST LES W/GDJackie Brian MD [address] [place] [address] Br Imaging [address] [place] [address] Referral ID Status Reason Start Date Expiration Date Visits Requested Visits Authorized [id number] New Request Auto-Generat ed Referral 12/26/2023 01/24/2025 [address] [facility] for referral (narrative)* Diagnostic Procedure Only (Routine) - Closed Specialty Diagnoses / Procedures Referred By Contac t Referred To Contact BR IMAGING Diagnoses Mass of right breast, unspecified quadrant Nipple discharge Procedures US BREAST LTD RIGHT US BREAST UNI REAL TIME WITH IMAGE LIMITED Prince Mon PA-C [address] [place] [address] [facility] Imaging [address] [place] [address] Referral ID Status Reason Start Date Expiration Date V isits Requested Visits Authorized [id number] Closed Auto-Generate d Referral 01/29/2024 02/27/2025 [address] [facility] for referral (narrative)* Diagnostic Procedure Only (Routine) - Closed Specialty Diagnoses / Procedures Referred By Contac t Referred To Contact BR IMAGING Diagnoses Mass of right breast, unspecified quadrant Nipple discharge Procedures US BREAST LTD RIGHT US BREAST UNI REAL TIME WITH IMAGE LIMITED Prince Mon PA-C [address] [place] [address] Br Imaging [address] [place] [address] Referral ID Status Reason Start Date Expiration Date V isits Requested Visits Authorized [id number] Closed Auto-Generate d Referral 03/12/2024 04/20/2024 1 1 [facility] for visit Narrative1 month Follow up, ER visit recently referrals to GI and urologist[place]th[place] [facility] Other [facility] Narrative* Diagnostic Procedure Only (Routine) - Closed Specialty Diagnoses / Procedures Referred By Contac t Referred To Contact BR IMAGING Diagnoses Breast fibroadenoma, right Procedures SAJI NDL LOC W SAJI GD RIGHT PERQ DEVICE PLACEMENT BREAST LOC 1ST LES W/GDJackie Brian MD [address] [place] [id number] [facility] [address] [place] [address] Referral ID Status Reason Start Date Expiration Date V isits Requested Visits Authorized [id number] Closed Auto-Generate d Referral 12/26/2023 01/24/2025 [address] [facility] for visit Narrative* Diagnostic Procedure Only (Routine) - Closed Specialty Diagnoses / Procedures Referred By Contac t Referred To Contact BR IMAGING Diagnoses Mass of right breast, unspecified quadrant Nipple discharge Procedures US BREAST LTD RIGHT US BREAST UNI REAL TIME WITH IMAGE LIMITED Prince Mon PA-C [address] [place] [address] Br Imaging [address] [place] [phone] Referral ID Status Reason Start Date Expiration Date V isits Requested Visits Authorized [id number] Closed Auto-Generate d Referral 01/29/2024 02/27/2025 [address] [facility] for visit Narrative* Diagnostic Procedure Only (Routine) - Closed Specialty Diagnoses / Procedures Referred [facility] Referred To Contact BR IMAGING Diagnoses Abnormal finding on breast imaging Procedures US BIOPSY BREAST LEFT BX BREAST W/DEVICE 1ST LESION ULTRASOUND Lea Odell MD [address] [place] [address] Phone: tel: fax: [facility] [address] [place] [phone] Referral ID Status Reason Start Date Expiration Date V isits Requested Visits Authorized [id number] Closed Auto-Generate d Referral 07/06/2024 04/20/[address] 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, 2024 2: 25pm Seizure-like activity April 26, 2024 2:25pm Spasm of muscle of lower back April 2:25pm Weakness of right leg April 26, 2024 2:25pm Numbness and tingling of right arm Janua ry 2024 2:25pm Hives May 07, 2024 8 :50am Chief Complaint Admit Date ER follow up for hives May 07 8:50am Amb Documentation May 19, 2024 2 :03pm 3 month follow up July 26, 2024 3:01 pm Reason for Visit Admit Date Hives May 07, 2024 8 :50am BMI 39.0-39.9,adult July 26, 2024 3:01 pm Chief Complaint Admit Date 3 month follow up July 26, 2024 3:01 pm 1 month August 27, 2024 9:34am 1 month October 18, 2024 1:36 pm Reason for Visit Admit Date BMI 39.0-39.9,adult July 26, 2024 3:01 pm BMI 38.0-38.9,adult August 27, 2024 9:34am Body mass index (BMI) of 38.0 to 38.9 in adult October 18, 2024 1:36pm Reason for Referral Specialty Diagnoses / Procedures Referred By Nikolas guerrero Referred To Contact MR IMAGING Diagnoses Nipple discharge Procedures MRI BREAST WO/W IVCON BILATERAL MRI BREAST WITHOUT&WITH CONTRAST W/CAD BILATERAL Prince Mon PA-C [address] [place] [address] Mr Imaging [facility] Referral ID Status Reason Start Date Expiration Date Visits Requested Visits Authorized [id number] New Request Auto-Generat ed Referral 04/11/2025 1 1 Specialty Diagnoses / Procedures Referred By Nikolas guerrero Referred To Contact BR IMAGING Diagnoses Mass of right breast, unspecified quadrant Nipple discharge Procedures US BREAST LTD RIGHT US BREAST UNI REAL TIME WITH IMAGE LIMITED Prince Mon PA-C [address] [place] [address] Br Imaging [address] [place] [phone] Referral ID Status Reason Start Date Expiration Date V isits Requested Visits Authorized [id number] Closed Auto-Generate d Referral 03/12/2024 04/20/2024 1 1 Specialty Diagnoses / Procedures Referred By Nikolas guerrero Referred To Contact Diagnoses Family history of breast cancer Procedures CONSULT TO MEDICAL GENETICS - CANCER MEDICAL GENETICS COUNSELING EACH 30 MINUTES Prince Mon PA-C [address] [place] [address] [facility] [place] [address] [place] [address] Referral ID Status Reason Start Date Expiration Date Visits Requested Visits Authorized [id number] Authorized PCP Requested Referral Auto-Generate d Referral 01/29/2025 1 1 Specialty Diagnoses / Procedures Referred By Contac t Referred To Contact BR IMAGING Diagnoses Mass of right breast, unspecified quadrant Nipple discharge Procedures US BREAST LTD RIGHT US BREAST UNI REAL TIME WITH IMAGE LIMITED Prince Mon PA-C [address] [place] [address] Br Imaging [address] [place] [address] Referral ID Status Reason Start Date Expiration Date V isits Requested Visits Authorized [id number] Closed Auto-Generate d Referral 01/29/2024 02/27/2025 1 1 Specialty Diagnoses / Procedures Referred By Contac t Referred To Contact General Surgery Diagnoses Breast fibroadenoma, right Fibrocystic breast changes of both breasts Mastodynia Dense breasts Procedures CONSULT TO GENERAL SURGERY OFFICE/OUTPATIENT NEW HIGH MDM 60 MINUTES Franchesca Man PA-C [address] [place] [address] Referral ID Status Reason Start Date Expiration Date Visits Requested Visits Authorized [id number] Authorized PCP Requested Referral 09/12/2023 09/11/2024 1 1 Specialty Diagnoses / Procedures Referred By Contac t Referred To Contact Endocrinology Diagnoses Nipple discharge Procedures CONSULT TO ENDOCRINOLOGY OFFICE/OUTPATIENT NEW HIGH MDM 60 MINUTES Franchesca Man PA-C [address] [place] [address] Referral ID Status Reason Start Date Expiration Date Visits Requested Visits Authorized [id number] Authorized PCP Requested Referral 08/07/2023 08/06/2024 1 1 Specialty Diagnoses / Procedures Referred By Contac t Referred To Contact BR IMAGING Diagnoses Fibrocystic breast changes of both breasts Family history of breast cancer Mastodynia Procedures US BREAST LTD RIGHT US BREAST UNI REAL TIME WITH IMAGE LIMITED Franchesca Man PA-C [address] [place] [address] Br Imaging [address] [place] [address] Referral ID Status Reason Start Date Expiration Date V isits Requested Visits Authorized [id number] Closed Auto-Generate d Referral 08/07/2023 04/20/2024 1 1 Reason Appt time Consult and treat abdominal pain - [facility] x 2 Diagnosis 1 Abdominal pain (R10. 9) Referral Organization [facility] Referring Provider First Name Mario Referring Provider Last Name Pee Referring Provider Specialty Family Prac cody Referred Organization Unknown Facility Referred Provider Carlos Haq Referred Provider Specialty Surgery Referral Priority Routine General Notes Renetta Damico 2022 08:55:03 AM > Carlos Haq DO, phone [phone]. [facility] recommended Additional Source Comments INFORMATION SOURCE (unrecogn ized section and content) DATE CREATED AUTHOR 03/11/2021 [facility] DATE CREATED AUTHOR AUTHOR'S ORGANIZ ATION 08/15/2022 [facility] DATE CREATED AUTHOR AUTHOR'S ORGANIZ ATION 02/15/2023 [facility] DATE CREATED AUTHOR AUTHOR'S ORGANIZ ATION 12/27/[address] [facility] DATE CREATED AUTHOR AUTHOR'S ORGANIZ ATION 2024 [facility] DATE CREATED AUTHOR AUTHOR'S ORGANIZ ATION 05/19/2024 [facility] DATE CREATED AUTHOR AUTHOR'S ORGANIZ ATION 07/11/2024 [facility] DATE CREATED AUTHOR AUTHOR'S ORGANIZ ATION 07/11/2024 [facility] DATE CREATED AUTHOR AUTHOR'S ORGANIZ ATION 09/29/2024 [facility] dical Specialists EPIC REASON FOR VISIT (unrecogniz ed section and content) Reason Comments New Patient Pain in both breast, enlarged lymph node in Rt armpit. Establish care Reason Comments Radiology Mammogram Specialty Diagnoses / Procedures Referred By Contac t Referred To Contact BR IMAGING Diagnoses Disorder of breast Procedures SAJI DIAGNOSTIC BILATERAL DIAGNOSTIC MAMMOGRAPHY COMPUTER-AIDED DETCJ Franchesca Mosquera PA-C [address] [place] [address] Br Imaging [address] [place] [address] Referral ID Status Reason Start Date Expiration Date V isits Requested Visits Authorized [id number] Closed Auto-Generate d Referral 08/06/2023 09/04/2024 1 [...] 1ST LESION ULTRASOUND GUID Franchesca Man PA-C [address] [place] [address] Br Imaging [address] [place] [address] Referral ID Status Reason Start Date Expiration Date V isits Requested Visits Authorized [id number] Closed Auto-Generate d Referral 08/11/2023 09/09/2024 1 1 Reason Comments Results Reason Comments New Patient Specialty Diagnoses / Procedures Referred By Nikolas guerrero Referred To Contact General Surgery Diagnoses Breast fibroadenoma, right Fibrocystic breast changes of both breasts Mastodynia Dense breasts Procedures CONSULT TO GENERAL SURGERY OFFICE/OUTPATIENT NEW HIGH MDM 60 MINUTES Franchesca Man PA-C [address] [place] [address] Referral ID Status Reason Start Date Expiration Date V isits Requested Visits Authorized [id number] Closed PCP Requested Referral 09/12/2023 09/11/2024 1 [...] SAJI DIAGNOSTIC BILATERAL DIAGNOSTIC MAMMOGRAPHY COMPUTER-AIDED DETCJ Prince Westfall PA-C [address] [place] [address] Br Imaging [address] 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) Procedures DC OFFICE/OUTPATIENT NEW LOW MDM 30 MINUTES Mario Glasgow MD [address] [facility] [address] [place] [address] Phone: tel: fax: Moses Crowder DO [address] [place] [address] Phone: tel: fax: Referral ID Status Reason Start Date Expiration Date V isits Requested Visits Authorized [id number] Closed Consult and Treat 04/28/2024 10/25/2024 1 1 Reason Comments Headache Arm pain Arm Pain Eye Problem Reason Comments Radiology MRI Specialty Diagnoses / Procedures Referred By Arleneac t Referred To Contact MR IMAGING Diagnoses Nipple discharge Procedures MRI BREAST WO/W IVCON BILATERAL MRI BREAST WITHOUT&WITH CONTRAST W/CAD BILATERAL Prince Mon PA-C [address] [place] [address] Mr Imaging [place] [address] Referral ID Status Reason Start Date Expiration Date V isits Requested Visits Authorized [id number] Closed Auto-Generate d Referral 05/18/2024 07/17/2024 1 1 Reason Comments bloody nipple discharge Breast MRI done Reason Comments Family History Of Cancer Specialty Diagnoses / Procedures Referred By Nikolas t Referred To Contact Diagnoses Family history of breast cancer Procedures CONSULT TO MEDICAL GENETICS - CANCER MEDICAL GENETICS COUNSELING EACH 30 MINUTES Prince Mon PA-C [address] [place] [address] Phone: tel: fax: [facility] [address] [place] [address] Referral ID Status Reason Start Date Expiration Date V isits Requested Visits Authorized [id number] Closed PCP Requested Referral Auto-Generated Referral 01/30/2024 01/29/2025 1 1 Reason Comments Breast Problem Had abnormal mammogr am 06/2023, consulted with Dr. Belle. Had 2nd opinion at [facility] and was advised possible hormone cause. New bloody discharge earlier this month, had appt with Dr. Belle. Had televisit with genetic counselor 05/29/24. Has had piercings in for 15 years, did not remove. Menopause [facility] 05/02/2022.Think s nick-menopause. C/o mood swings, night sweats, hot flashes. Changing clothes d/t sweat. Reason Comments Established Patient Reason Comments Radiology Mammogram Specialty Diagnoses / Procedures Referred By Nikolas guerrero Referred To Contact BR IMAGING Diagnoses Mass of upper outer quadrant of left breast Mass of right breast, unspecified quadrant Fibrocystic breast changes of both breasts Procedures SAJI DIAG W [facility] Prince Mon PA-C [address] [place] [address] Phone: tel: fax: [facility] [address] [place] [address] Referral ID Status Reason Start Date Expiration Date V isits Requested Visits Authorized [id number] Closed Auto-Generate d Referral 06/25/2024 07/25/2025 1 1 Reason Comments Patient Question Reason Comments Pain Reason Onset Date Comments MRI 09/30/2024 Care Teams (unrecognized sec tion and content) [...] Care Provider Active Start: December 17, 2023 Moris Guerrero MD Attending Provider Active St art: December 17, 2023 Team Status: Inactive Member Role Status Dates Mario Glasgow DO Primary Care Provid er, Attending Provider Active Start: December 26, 2023 End: December 26, 2023 Team Status: Inactive Member Role Status Dates Mario Glasgow DO Attending Provider Active S tart: December 26, 2023 End: December 26, 2023 Team Status: Active Member Role Status Dates Mario Glasgow DO Attending Provider Active S tart: January [...] DO Primary Care Provider Active Jose Cade DO Emergency Provider Active Team Status: Inactive Member Role Status Dates Mario Glasgow DO Primary Care Provider Active Jen Garcia , DO Attending Provider Active Team Status: Inactive Member Role Status Dates Jen Garcia , Attending Provider Active Team Status: Inactive Member Role Status Dates Mario Glasgow , Attending Provider Active S tart: April 01, [...] Provider Active St art: July 07, 2023 Cash Applications Coordinator Relationship Specialty Start Date End Date Keli Strickland NP [address] [address] [place] [address] PCP - General Family Medicine 10/19/16 Erin Chavez MD [address] [place] [address] Urology 01/01/23 Cash Applications Coordinator Relationship Specialty Start Date End Date Keli Strickland NP [address] [place] [address] [place] [id number] PCP - General Family Medicine 10/19/16 Erin Chavez MD [address] [place] [address] Urology 01/01/23 Cash Applications Coordinator Relationship Specialty Start Date End Date Keli Strickland NP [address] [place] [address] [place] [phone] PCP - General Family Medicine 10/19/16 Erin Chavez MD [address] [place] [address] Urology 01/01/23 Cash Applications Coordinator Relationship Specialty Start Date End Date Keli Strickland NP [address] [place] [phone] PCP - General Family Medicine 10/19/16 Erin Chavez MD [address] [place] [address] Urology 01/01/23 Cash Applications Coordinator Relationship Specialty Start Date End Date Keli Strickland NP [address] [place] [address] [place] [phone] PCP - General Family Medicine 10/19/16 Erin Chavez MD [address] [place] [address] Urology 01/01/23 Cash Applications Coordinator Relationship Specialty Start Date End Date Keli Strickland NP [address] [place] [address] [place] [address] PCP - General Family Medicine 10/19/16 Erin Chavez MD [address] [place] [address] Urology 01/01/23 Cash Applications Coordinator Relationship Specialty Start Date End Date Keli Strickland NP [address] [place] [address] [place] [address] PCP - General Family Medicine 10/19/16 Erin Chavez MD [address] [place] [address] Urology 01/01/23 Cash Applications Coordinator Relationship Specialty Start Date End Date Keli Strickland NP [address] [place] [phone] PCP - General Family Medicine 10/19/16 Erin Chavez MD [address] [place] [address] Urology 01/01/23 Cash Applications Coordinator Relationship Specialty Start Date End Date Keli Strickland NP [address] [place] [address] PCP - General Family Medicine 10/19/16 Erin Chavez MD [address] [place] [address] Urology 01/01/23 Cash Applications Coordinator Relationship Specialty Start Date End Date Keli Strickland NP [address] [place] [phone] PCP - General Family Medicine 10/19/16 Erin Chavez MD [address] [place] [address] Urology 01/01/23 Cash Applications Coordinator Relationship Specialty Start Date End Date Keli Strickland NP [address] [facility] [address] PCP - General Family Medicine 10/19/16 Erin Chavez MD [address] [place] [address] Urology 01/01/23 Cash Applications Coordinator Relationship Specialty Start Date End Date Mario Glasgow DO [address] [place] [address] PCP - General Family Medicine 12/30/23 Erin Chavez MD [address] [facility] [place] [address] Urology 01/01/23 Cash Applications Coordinator Relationship Specialty Start Date End Date Mario Glasgow DO [address] [place] [address] PCP - General Family Medicine 12/30/23 Erin Chavez MD [address] [place] [address] Urology 01/01/23 Cash Applications Coordinator Relationship Specialty Start Date End Date Mario Glasgow DO [address] [place] [address] PCP - General Family Medicine 12/30/23 Erin Chavez MD [address] [place] [address] Urology 01/01/23 Cash Applications Coordinator Relationship Specialty Start Date End Date Pee Marioquin VelazquezDO [address] [address] PCP - General Family Medicine 12/30/23 Erin Chavez MD [address] [place] [address] Urology 01/01/23 Cash Applications Coordinator Relationship Specialty Start Date End Date Mario Glasgow CrDO [address] [address] PCP - General Family Medicine 12/30/23 Erin Chavez MD [address] [place] [address] Urology 01/01/23 Cash Applications Coordinator Relationship Specialty Start Date End Date Mario Glasgow VelazquezDO [address] [address] PCP - General Family Medicine 12/30/23 Erin Chavez MD [address] [place] [address] Urology 01/01/23 Cash Applications Coordinator Relationship Specialty Start Date End Date Mario Glasgow DO [address] [address] PCP - General Family Medicine 12/30/23 Erin Chavez MD [address] [place] [address] Urology 01/01/23 Cash Applications Coordinator Relationship Specialty Start Date End Date Tasha Glasgowquin VelazquezDO [address] [address] PCP - General Family Medicine 12/30/23 Erin Chavez MD [address] [place] [address] Urology 01/01/23 Cash Applications Coordinator Relationship Specialty Start Date End Date Mario Glasgow DO [address] [address] PCP - General Family Medicine 12/30/23 Erin Chavez MD [address] [place] [address] Urology 01/01/23 Cash Applications Coordinator Relationship Specialty Start Date End Date Mario Glasgow DO [address] [address] PCP - General Family Medicine 12/30/23 Erin Chavez MD [address] [place] [address] Urology 01/01/23 Cash Applications Coordinator Relationship Specialty Start Date End Date Mario Glasgow DO [address] [address] PCP - General Family Medicine 12/30/23 Erin Chavez MD [address] [place] [address] Urology 01/01/23 Cash Applications Coordinator Relationship Specialty Start Date End Date Mario Glasgow DO [address] [address] PCP - General Family Medicine 12/30/23 Erin Chavez MD [address] [facility] [place] [address] Urology 01/01/23 Cash Applications Coordinator Relationship Specialty Start Date End Date Mario Glasgow DO [address] [address] PCP - General Family Medicine 12/30/23 Erin Chavez MD [address] [place] [address] Urology 01/01/23 Team Status: Inactive Member Role Status Dates Mario Glasgow DO Primary Care Provid er, Attending Provider Active Start: May 07, 2024 End: May 07, 2024 Cash Applications Coordinator Relationship Specialty Start Date End Date Mario Glasgow MD [address] [address] PCP - General Family Medicine 06/17/23 Jen Garcia [facility] [address] [facility] [address] [place] [address] Referring Physician Obstetrics and Gynecology 06/17/23 Cash Applications Coordinator Relationship Specialty Start Date End Date Brandon Alan MD PCP - General 11/06/14 Cash Applications Coordinator Relationship Specialty Start Date End Date Mario Glasgow DO [address] [address] PCP - General Family Medicine 12/30/23 Erin Chavez MD [address] [place] [address] Urology 01/01/23 Cash Applications Coordinator Relationship Specialty Start Date End Date Mario Glasgow MD [address] [address] PCP - General Family Medicine 06/17/23 Jen Garcia, [address] [place] [address] [place] [address] Referring Physician Obstetrics and Gynecology 06/17/23 Cash Applications Coordinator Relationship Specialty Start Date End Date Mario Glasgow DO [address] [address] PCP - General Family Medicine 12/30/23 Erin Chavez MD [address] [place] [address] Urology 01/01/23 Cash Applications Coordinator Relationship Specialty Start Date End Date Mario Glasgow MD [address] [address] PCP - General Family Medicine 06/17/23 Jen Garcia, [address] [place] [address] [place] [address] Referring Physician Obstetrics and Gynecology 06/17/23 Cash Applications Coordinator Relationship Specialty Start Date End Date Mario Glasgow DO [address] [address] PCP - General Family Medicine 12/30/23 Erin Chavez MD [address] [place] [address] Urology 01/01/23 Cash Applications Coordinator Relationship Specialty Start Date End Date Mario Glasgow DO [address] [place] [address] PCP - General Family Medicine 12/30/23 Erin Chavez MD [address] [place] [address] Urology 01/01/23 Cash Applications Coordinator Relationship Specialty Start Date End Date Mario Glasgow DO [address] [place] [address] PCP - General Family Medicine 12/30/23 Erin Chavez MD [address] [place] [address] Urology 01/01/23 Cash Applications Coordinator Relationship Specialty Start Date End Date Mario Glasgow DO [address] [place] [address] PCP - General Family Medicine 12/30/23 Erin Chavez MD [address] [place] [address] Urology 01/01/23 Cash Applications Coordinator Relationship Specialty Start Date End Date Mario Glasgow DO [address] [place] [address] PCP - General Family Medicine 12/30/23 Erin Chavez MD [address] [place] [address] Urology 01/01/23 Cash Applications Coordinator Relationship Specialty Start Date End Date Mario Glasgow DO [address] [place] [address] PCP - General Family Medicine 12/30/23 Erin Chavez MD [address] [place] [address] Urology 01/01/23 Team Status: Active Member Role Status Dates Mario Glasgow DO Primary Care Provider Active Start: May 19, 2024 Thania Caballero Attending Provider Active Start : May 19, 2024 Team Status: Inactive Member Role Status Dates Mario Glasgow DO Primary Care Provid er, Attending Provider Active Start: July 26, 2024 End: July 26, 2024 Cash Applications Coordinator Relationship Specialty Start Date End Date Mario Glasgow MD PCP - General Family Medicine 06/17/23 Jen Garcia DO [address] [place] [address] [place] [address] Referring Physician Obstetrics and Gynecology 06/17/23 Cash Applications Coordinator Relationship Specialty Start Date End Date Mario Glasgow MD PCP - General Family Medicine 06/17/23 Jen Garcia DO [address] [facility] [address] [place] [address] Referring Physician Obstetrics and Gynecology 06/17/23 Cash Applications Coordinator Relationship Specialty Start Date End Date Mario Glasgow MD PCP - General Family Medicine 06/17/23 Cash Applications Coordinator Relationship Specialty Start Date End Date Mario Glasgow MD PCP - General Family Medicine 06/17/23 Cash Applications Coordinator Relationship Specialty Start Date End Date Mario Glasgow MD [address] [place] [address] [address] [place] [address] PCP - General Family Medicine 09/24/24 Team Status: Inactive Member Role Status Dates Mario Glasgow DO Primary Care Provider Active Start: July 26, 2024 End: July 26, 2024 Mario Glasgow DO Attending Provider Active S tart: July 26, 2024 End: July 26, 2024 Team Status: Inactive Member Role Status Dates Mario Glasgow DO Primary Care Provider Active Start: August 27, 2024 End: August 27, 2024 Mario Glasgow DO Attending Provider Active S tart: August 27, 2024 End: August 27, 2024 Team Status: Inactive Member Role Status Dates Mario Glasgow DO Primary Care Provider Active Start: October 18, 2024 End: October 18, 2024 Mario Glasgow DO Attending Provider Active S tart: October 18, 2024 End: October 18, 2024 Goals (unrecognized section and content) Goals may be documented in a n alternate section Source Comments (unrecognize d section and content) In the event this informatio n is protected by the Federal Confidentiality of Alcohol and Drug Abuse Patient Records regulations: The Federal rules restrict any use of the information to criminally investigate or prosecute any alcohol or drug abuse patient.[facility] the event this information is protected by the Federal Confidentiality of Alcohol and Drug Abuse Patient Records regulations: The Federal rules restrict any use of the information to criminally investigate or prosecute any alcohol or drug abuse patient.[facility] HospitalIn the event this information is protected by the Federal Confidentiality of Alcohol and Drug Abuse Patient Records regulations: The Federal rules restrict any use of the information to criminally investigate or prosecute any alcohol or drug abuse patient.[facility]In the event this information is protected by the Federal Confidentiality of Alcohol and Drug Abuse Patient Records regulations: The Federal rules restrict any use of the information to criminally investigate or prosecute any alcohol or drug abuse patient.[facility] HospitalIn the event this information is protected by the Federal Confidentiality of Alcohol and Drug Abuse Patient Records regulations: The Federal rules restrict any use of the information to criminally investigate or prosecute any alcohol or drug abuse patient.[facility] HospitalIn the event this information is protected by the Federal Confidentiality of Alcohol and Drug Abuse Patient Records regulations: The Federal rules restrict any use of the information to criminally investigate or prosecute any alcohol or drug abuse patient.[facility]In the event this information is protected by the Federal Confidentiality of Alcohol and Drug Abuse Patient Records regulations: The Federal rules restrict any use of the information to criminally investigate or prosecute any alcohol or drug abuse patient.[facility] HospitalIn the event this information is protected by the Federal Confidentiality of Alcohol and Drug Abuse Patient Records regulations: The Federal rules restrict any use of the information to criminally investigate or prosecute any alcohol or drug abuse patient.[facility] HospitalIn the event this information is protected by the Federal Confidentiality of Alcohol and Drug Abuse Patient Records regulations: The Federal rules restrict any use of the information to criminally investigate or prosecute any alcohol or drug abuse patient.[facility] HospitalIn the event this information is protected by the Federal Confidentiality of Alcohol and Drug Abuse Patient Records regulations: The Federal rules restrict any use of the information to criminally investigate or prosecute any alcohol or drug abuse patient.[facility] HospitalIn the event this information is protected by the Federal Confidentiality of Alcohol and Drug Abuse Patient Records regulations: The Federal rules restrict any use of the information to criminally investigate or prosecute any alcohol or drug abuse patient.[facility] HospitalIn the event this information is protected by the Federal Confidentiality of Alcohol and Drug Abuse Patient Records regulations: The Federal rules restrict any use of the information to criminally investigate or prosecute any alcohol or drug abuse patient.[facility] HospitalIn the event this information is protected by the Federal Confidentiality of Alcohol and Drug Abuse Patient Records regulations: The Federal rules restrict any use of the information to criminally investigate or prosecute any alcohol or drug abuse patient.[facility] HospitalIn the event this information is protected by the Federal Confidentiality of Alcohol and Drug Abuse Patient Records regulations: The Federal rules restrict any use of the information to criminally investigate or prosecute any alcohol or drug abuse patient.[facility] HospitalIn the event this information is protected by the Federal Confidentiality of Alcohol and Drug Abuse Patient Records regulations: The Federal rules restrict any use of the information to criminally investigate or prosecute any alcohol or drug abuse patient.[facility] HospitalIn the event this information is protected by the Federal Confidentiality of Alcohol and Drug Abuse Patient Records regulations: The Federal rules restrict any use of the information to criminally investigate or prosecute any alcohol or drug abuse patient.[facility] HospitalIn the event this information is protected by the Federal Confidentiality of Alcohol and Drug Abuse Patient Records regulations: The Federal rules restrict any use of the information to criminally investigate or prosecute any alcohol or drug abuse patient.[facility] HospitalIn the event this information is protected by the Federal Confidentiality of Alcohol and Drug Abuse Patient Records regulations: The Federal rules restrict any use of the information to criminally investigate or prosecute any alcohol or drug abuse patient.[facility] HospitalIn the event this information is protected by the Federal Confidentiality of Alcohol and Drug Abuse Patient Records regulations: The Federal rules restrict any use of the information to criminally investigate or prosecute any alcohol or drug abuse patient.[facility] HospitalIn the event this information is protected by the Federal Confidentiality of Alcohol and Drug Abuse Patient Records regulations: The Federal rules restrict any use of the information to criminally investigate or prosecute any alcohol or drug abuse patient.[facility] HospitalIn the event this information is protected by the Federal Confidentiality of Alcohol and Drug Abuse Patient Records regulations: The Federal rules restrict any use of the information to criminally investigate or prosecute any alcohol or drug abuse patient.[facility] HospitalIn the event this information is protected by the Federal Confidentiality of Alcohol and Drug Abuse Patient Records regulations: The Federal rules restrict any use of the information to criminally investigate or prosecute any alcohol or drug abuse patient.[facility] HospitalIn the event this information is protected by the Federal Confidentiality of Alcohol and Drug Abuse Patient Records regulations: The Federal rules restrict any use of the information to criminally investigate or prosecute any alcohol or drug abuse patient.[facility] HospitalIn the event this information is protected by the Federal Confidentiality of Alcohol and Drug Abuse Patient Records regulations: The Federal rules restrict any use of the information to criminally investigate or prosecute any alcohol or drug abuse patient.[facility] HospitalIn the event this information is protected by the Federal Confidentiality of Alcohol and Drug Abuse Patient Records regulations: The Federal rules restrict any use of the information to criminally investigate or prosecute any alcohol or drug abuse patient.[facility] HospitalIn the event this information is protected by the Federal Confidentiality of Alcohol and Drug Abuse Patient Records regulations: The Federal rules restrict any use of the information to criminally investigate or prosecute any alcohol or drug abuse patient.[facility] HospitalIn the event this information is protected by the Federal Confidentiality of Alcohol and Drug Abuse Patient Records regulations: The Federal rules restrict any use of the information to criminally investigate or prosecute any alcohol or drug abuse patient.[facility] HospitalIn the event this information is protected by the Federal Confidentiality of Alcohol and Drug Abuse Patient Records regulations: The Federal rules restrict any use of the information to criminally investigate or prosecute any alcohol or drug abuse patient.[facility] HospitalIn the event this information is protected by the Federal Confidentiality of Alcohol and Drug Abuse Patient Records regulations: The Federal rules restrict any use of the information to criminally investigate or prosecute any alcohol or drug abuse patient.[facility] HospitalIn the event this information is protected by the Federal Confidentiality of Alcohol and Drug Abuse Patient Records regulations: The Federal rules restrict any use of the information to criminally investigate or prosecute any alcohol or drug abuse patient.[facility] HospitalIn the event this information is protected by the Federal Confidentiality of Alcohol and Drug Abuse Patient Records regulations: The Federal rules restrict any use of the information to criminally investigate or prosecute any alcohol or drug abuse patient.[facility] HospitalIn the event this information is protected by the Federal Confidentiality of Alcohol and Drug Abuse Patient Records regulations: The Federal rules restrict any use of the information to criminally investigate or prosecute any alcohol or drug abuse patient.[facility] HospitalIn the event this information is protected by the Federal Confidentiality of Alcohol and Drug Abuse Patient Records regulations: The Federal rules restrict any use of the information to criminally investigate or prosecute any alcohol or drug abuse patient.[facility] HospitalIn the event this information is protected by the Federal Confidentiality of Alcohol and Drug Abuse Patient Records regulations: The Federal rules restrict any use of the information to criminally investigate or prosecute any alcohol or drug abuse patient.[facility] HospitalIn the event this information is protected by the Federal Confidentiality of Alcohol and Drug Abuse Patient Records regulations: The Federal rules restrict any use of the information to criminally investigate or prosecute any alcohol or drug abuse patient.[facility] HospitalIn the event this information is protected by the Federal Confidentiality of Alcohol and Drug Abuse Patient Records regulations: The Federal rules restrict any use of the information to criminally investigate or prosecute any alcohol or drug abuse patient.[facility] HospitalIn the event this information is protected by the Federal Confidentiality of Alcohol and Drug Abuse Patient Records regulations: The Federal rules restrict any use of the information to criminally investigate or prosecute any alcohol or drug abuse patient.[facility] HospitalIn the event this information is protected by the Federal Confidentiality of Alcohol and Drug Abuse Patient Records regulations: The Federal rules restrict any use of the information to criminally investigate or prosecute any alcohol or drug abuse patient.[facility] Scheduled Active and Recently Administ ered Medications (unrecognized section and content) Medication Order 05/16/2024 05/17/2024 05/18/2024 diphenhydrAMINE (BENADRYL) injection 25 mg (COMPLETED) 25 mg, IntraVENous, ONCE, 1 dose, On Fri05/18/24 at 1134, IV Push at rate not to exceed 25 mg/min. 1155 (Given - Provid er: Maritza Ribera RN) droPERidol (INAPSINE) injection 1.25 mg (COMPLETED) 1.25 mg, IntraVENous, ONCE, 1 dose, On Fri05/18/24 at 1134 1154 (Given - Provid er: Maritza Ribera RN) FOR RECORDS PERTAINING TO PATIENTS WHO ARE [...] BE BASED ON THE PRIMARY CLINICAL RECORDS. [employer] provides no warranty or guarantee of the accuracy or completeness of information in this document.
--- NOTE | 2024-12-22 01:08 | ED.SKABFB1 ---
HPI - Skin/Abscess/Foreign Bdy General Stated complaint: SKIN ISSUE, LOWER EXTREMITY Time Seen by Provider: 12/22/24 01:04 Source: patient Mode of arrival: walk-in Limitations: no limitations History of Present Illness HPI narrative: cc - painful lump right thigh About 6 hours ago the patient noticed a painful red lump on the inner thigh that has worsened over the last several hours. She told the nurse that she thought it might be an insect bite but didn't see anything . No systemic symptoms such as fever or chills. Related Data Home Medications ?Medication ?Instructions ?Recorded ?Confirmed tizanidine 4 mg tablet 4 mg PO BEDTIME muscle spasticity 11/17/22 12/22/24 alprazolam 2 mg PO BID PRN anxiety 12/24/22 12/22/24 estradiol 1 mg tablet mg 12/22/24 phentermine 37.5 mg tablet mg 12/22/24 Previous Rx's ?Medication ?Instructions ?Recorded doxycycline hyclate 100 mg capsule 100 mg PO BID 7 days #14 caps 12/22/24 Allergies Allergy/AdvReac Type Severity Reaction Status Date / Time methylprednisolone Allergy Severe Hives Verified 12/22/24 01:03 nitrofurantoin (From Allergy Severe itching Verified 12/22/24 01:03 Macrobid) azithromycin (From Zithromax) Allergy Unknown Unknown Verified 12/22/24 01:03 ciprofloxacin (From Cipro) Allergy Unknown Hives Verified 12/22/24 01:03 ketorolac (From Toradol) Allergy Unknown Unknown Verified 12/22/24 01:03 metoclopramide (From Reglan) Allergy Unknown Unknown Verified 12/22/24 01:03 Penicillins Allergy Unknown Unknown Verified 12/22/24 01:03 zolpidem (From Ambien) AdvReac agitation Verified 12/22/24 01:03 [facility] Medical History (Updated 12/22/24 @ 01:13 by Gaudencio Martinez) Kidney stones ?N20.0 - Calculus of kidney (ICD-10) POTS (postural orthostatic tachycardia syndrome) ?G90.A - Postural orthostatic tachycardia syndrome [POTS] (ICD-10) Migraines ?G43.909 - Migraine, unspecified, not intractable, without status migrainosus (ICD-10) Seizure ?R56.9 - Unspecified convulsions (ICD-10) History of anxiety ?Z86.59 - Personal history of other mental and behavioral disorders (ICD-10) History of depression ?Z86.59 - Personal history of other mental and behavioral disorders (ICD-10) History of seizure ?Z87.898 - Personal history of other specified conditions (ICD-10) Surgical History (Updated 01/22/23 @ 06:55 by Xochitl Weaver) History of colonoscopy ?Z98.890 - Other specified postprocedural states (ICD-10) History of nephrostomy History of bunionectomy of right great toe ?Z98.890 - Other specified postprocedural states (ICD-10) H/O LEEP ?Z98.890 - Other specified postprocedural states (ICD-10) S/P laparoscopy ?Z98.890 - Other specified postprocedural states (ICD-10) Hx of cystoscopy ?Z98.890 - Other specified postprocedural states (ICD-10) History of hysterectomy ?Z90.710 - Acquired absence of both cervix and uterus (ICD-10) History of tubal ligation ?Z98.51 - Tubal ligation status (ICD-10) Family History (Updated 01/14/23 @ 12:43 by Soraida Blount) Father Family history of COPD (chronic obstructive pulmonary disease) Family history of cancer Family history of myocardial infarction Social History (Updated 01/22/23 @ 06:57 by Xochitl Weaver) Within the past year, how often did you have a drink containing alcohol: monthly or less Smoking status: Never smoker Non-prescribed substance use: denies use Highest level of school completed/degree received: some college, no degree Little interest or pleasure in doing things: not at all Feeling down, depressed, or hopeless: not at all Exam Narrative Exam Narrative: Nurses notes and vital signs reviewed and patient is not hypoxic. afebrile General: Well-appearing and in no apparent distress. Skin: Warm, dry, no pallor noted. Ears, Nose, Mouth, and Throat: Oral mucosa is moist Cardiovascular: Normal peripheral perfusion Respiratory: No accessory muscle use or respiratory distress. Musculoskeletal: RIGHT LOWER EXTREMITY= normal ROM, no calf or popliteal tenderness, no lower extremity edema/swelling. 3mm diameter painful raised lesion to the medial aspect of the proximal right thigh. There is surrounding soft tissue tenderness without erythema, warmth or palpable abscess. Surface of the lesion is excoriated but not actively bleeding. Neurological: A&O x4. Moves all extremities. Sensation intact. Psychiatric: Cooperative and interactive. Normal mood and affect. Constitutional Vital Signs, click to edit/add: Last Vital Signs Temp 98.6 F 12/22/24 00:56 Pulse 72 12/22/24 00:56 Resp 16 12/22/24 00:56 BP 127/73 12/22/24 00:56 Pulse Ox 97 12/22/24 00:56 O2 Del Method Room Air 12/22/24 00:56 Course Vital Signs Vital signs: Vital Signs Temperature 98.6 F 12/22/24 00:56 Pulse Rate 72 12/22/24 00:56 Respiratory Rate 16 12/22/24 00:56 Blood Pressure 127/73 12/22/24 00:56 Pulse Oximetry 97 12/22/24 00:56 Oxygen Delivery Method Room Air 12/22/24 00:56 Temperature 98.6 F 12/22/24 00:56 Pulse Rate 72 12/22/24 00:56 Respiratory Rate 16 12/22/24 00:56 Blood Pressure 127/73 12/22/24 00:56 Pulse Oximetry 97 12/22/24 00:56 Oxygen Delivery Method Room Air 12/22/24 00:56 MDM - Skin/Abscess/Foreign Bdy MDM Narrative Medical decision making narrative: Exam is consistent with an infected hair follicle or oral gland. There is no abscess to drain or incise. Patient was started on doxycycline in the emergency department and discharged home with prescription for additional doxycycline. She can see her primary care physician for follow-up. She was instructed to apply a warm compress to the area and take ibuprofen and Tylenol for pain Discharge Plan Discharge Clinical Impression: Ingrown hair Patient Disposition: Home, Self-Care Time of Disposition Decision: 01:13 Prescriptions / Home Meds: New doxycycline hyclate 100 mg capsule 100 mg PO BID 7 Days Qty: 14 0RF No Action tizanidine 4 mg tablet 4 mg PO BEDTIME alprazolam [Xanax] 2 mg PO BID PRN (Reason: anxiety) phentermine 37.5 mg tablet estradiol 1 mg tablet Print Language: Solomon Islander Instructions: Furunculosis and Carbunculosis (ED) Referrals: MARIO GUAMAN [Primary Care Provider, Family Practice] - 1 week
[2024-12-22] MEDS: DOXYCYCLINE MONOHYDRATE 100 MG CAPSULE PO (01:24)
== END 2024-12-22 01:27 | disposition home or self-care (01) ==
PROVIDERS: Emergency Provider Emergency Medicine; PCP Family Medicine
DX: R22.41 Localized swelling, mass and lump, right lower limb (principal); L73.1 Pseudofolliculitis barbae
CPT/HCPCS: 99283

== ENCOUNTER 2025-01-31 11:14 | Emergency (ER) | payer OTHER, SELFPAY ==
--- OUTSIDE RECORDS SUMMARY | 2024-04-29 08:30 | XMS_ITS ---
Author Organization [facility] Address [address] [place] [address] Care Team Providers Care Obiee Consultant Name Role Phone Abby Hytlon Primary Care Provider Sol Edmond Unavailable [phone] Aaliyah Carney Unavailable [phone] REASON FOR VISIT NEEDS ALL PAPERWORK. Encounters Encounter Location Date Provider Diagnosis [facility] [address] [place] [address] 04/29/2024 Aaliyah Carney Plan Of Treatment No Information Progress Notes * TICO ENRIQUEZ MDOB:1990 (34 yo F)Acc No.[id number]:04/29/2024 F/U - Patient Patient: TICO JONES Provider: Storm Carney :1990 A ge:34 Y S ex:Female Date:04/29/2024 Address:[address] [place], [place] [id number] Pcp:Abby Hylton Subjective: * Chief Complaints: * N EEDS ALL PAPERWORK. Billing Information: * Procedure Codes: Care Plan Details* * Electronic signature of JULITO Monroy on 01/31/2025 at 11:37 AM EDT Sign off status: Pending * Provider: Storm Carney Date: 0 04/29/2024 Generated for Printi ng/Faasadg/eTransmitting on: 1 11:37 AM EDT
--- OUTSIDE RECORDS SUMMARY | 2024-08-12 10:30 | XMS_ITS ---
Author Organization [facility] Address [address] [place] [address] Care Team Providers Care Maintenance Supervisor Electrical Name Role Phone Abby Hylton Primary Care Provider Sol Edmond [phone] REASON FOR VISIT BH F/U Encounters Encounter Location Date Provider Diagnosis [facility] [address] [place] [address] 08/12/2024 Abby Hylton Plan Of Treatment No Information Progress Notes * TICO ENRIQUEZ MDOB:1990 (34 yo F)Acc No.[id number]:08/12/2024 BH F/U - Patient Patient: TICO JONES Provider: JULITO Cramer :1990 A ge:34 Y S ex:Female Date:08/12/2024 Address:[address] [place], [place] [id number] Subjective: * Chief Complaints: * B H F/U Care Plan Details* * Electronic signature of JULITO Grossman sa on 01/31/2025 at 11:37 AM EDT Sign off status: Pending * Provider: JULITO Cramer Date: 0 08/12/2024 Generated for Geraldine ng/Faasadg/eTransmitting on: 1 11:37 AM EDT
--- OUTSIDE RECORDS SUMMARY | 2024-08-26 09:00 | XMS_ITS ---
Author Organization [facility] Address [address] [place] [address] Care Team Providers Care Machine Joiner Cementer Name Role Phone Abby Hylton Primary Care Provider [phone] Sol Edmond [phone] REASON FOR VISIT BH F/U Encounters Encounter Location Date Provider Diagnosis [facility] [address] [place] [address] 08/26/2024 Abby Hylton Plan Of Treatment No Information Progress Notes * TICO ENRIQUEZ MDOB:1990 (34 yo F)Acc No.[id number]:08/26/2024 BH F/U - Patient Patient: TICO JONES Provider: JULITO Cramer :1990 A ge:34 Y S ex:Female Date:08/26/2024 Address:[address] [place], [place] [id number] Subjective: * Chief Complaints: * B H F/U Care Plan Details* * Electronic signature of JULITO Grossman sa on 01/31/2025 at 11:37 AM EDT Sign off status: Pending * Provider: JULITO Cramer Date: 0 08/26/2024 Generated for Geraldine ng/Faasadg/eTransmitting on: 1 11:37 AM EDT
[2025-01-31] VITALS (11 sets, daily range): BP systolic 112–126; BP diastolic 75–91; PULSE 69–93; TEMP 37; O2SAT 92–99; BMI 38.3
--- NOTE | 2025-01-31 11:34 | ECG_ITS ---
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 Measurements Intervals [place] Rate: 87 P: 49 [place]: 168 QRS: 60 QRSD: 90 T: 33 QT: 372 QTc: 417 Interpretive Statements 1100 Sinus rhythm 1574 with frequent ventricular premature complexes 8102 Low QRS voltage in chest leads 9140 abnormal rhythm ECG Compared to ECG 10/29/2021 01:33:06 Ventricular premature complex(es) now present Low QRS voltage now present Electronically Signed On 01-31-2025 18:46:07 EDT by LAVELLE PARSON M.D.
--- OUTSIDE RECORDS SUMMARY | 2025-01-31 11:36 | XMS_ITS | Encounter Summary ---
Author Organization [facility] Address [address] [place] [address] Care Team Providers Care Podiatry Doctor Name Role Phone Tomasz Glasgow MD Primary Care Provider [phone] Encounter Details Date Type Department Care Team (Late st Contact Info) Description 09/25/2024 Results Follow-Up [facility] [address] [facility] [place] [address] Shakeel Sheppard PA [address] [place] [address] [place] guided aspiration or injection large joint right Social History Tobacco Use Types Packs/Day Years Used Date Smoking Tobacco: Never Smokeless Tobacco: Never Alcohol Use Standard Drinks/Week Comments Yes 2 (1 standard drink = 0.6 oz pur e alcohol) A month AUDIT-C Answer Date Recorded Q1: How often do you have a drink containing alc ohol? Monthly or less 06/18/2023 Q2: How many drinks containi ng alcohol do you have on a typical day when you are drinking? 1 or 2 06/18/2023 Q3: How often do you have si x or more drinks on one occasion? Never 06/18/2023 PHQ-2 Answer Date Recorded Patient Health Questionnaire-2 Score 0 06/18/2023 Comments No Sex and Gender Information Value Date Recorded Sex Assigned at Not on file Legal Sex Female 7:17 PM EDT Gender Identity Not on file Sexual Orientation Not on file documented as of this encounter Plan of Treatment Not on file documented as of this encounter Visit Diagnoses Not on filedocumented in this encounter Care Teams Podiatry Doctor Relationship Specialty Start Date End Date Tomasz Glasgow MD [address] [place] [phone] PCP - General Family Medicine 09/24/24 documented as of this encounter
--- OUTSIDE RECORDS SUMMARY | 2025-01-31 11:36 | XMS_ITS | Encounter Summary ---
Author Organization [facility] Address [address] [place] [address] Care Team Providers Care Spectacle Truer Name Role Phone Tomasz Glasgow MD Primary Care Provider Encounter Details Date Type Department Care Team (Late st Contact Info) Description 09/25/2024 Results Follow-Up [facility] [address] [facility] [place] [address] Shakeel Sheppard PA [address] [place] [address] MR hip arthrogram right Social History Tobacco Use Types Packs/Day [...] on filedocumented in this encounter Care Teams Spectacle Truer Relationship Specialty Start Date End Date Tomasz Glasgow MD [address] [place] [phone] PCP - General Family Medicine 09/24/24 documented as of this encounter
--- OUTSIDE RECORDS SUMMARY | 2025-01-31 11:36 | XMS_ITS | Encounter Summary ---
Author Organization [facility] Address [address] [place] [address] Care Team Providers Care Account Services Representative Name Role Phone rEin Chavez MD Unavailable Tomasz Glasgow DO Primary Care Provider [phone] Source Comments In the event this information is protected by the Federal Confidentiality of Alcohol and Drug AbusePatient Records regulations: The Federal rules restrict any use of the information to criminally investigate or prosecute any alcohol or drug abuse patient.[facility] Encounter Details Date Type Department Care Team (Late st Contact Info) Description 01/28/2024 Patient Msg Breast Center [address] [phone] Franchesca Man PA-C [address] [facility] [address] [place] [address] Appointment Request Social History Tobacco Use Types Packs/Day Years Used Date Smoking Tobacco: Never Smokeless Tobacco: Never Alcohol Use Standard Drinks/Week Comments Yes 0 (1 standard drink = 0.6 oz pure alcohol) about 1-2 times per month will have ~2 drinks Area Deprivation Index Answer Date Tashi rded National Score (1-100), lower number is lower ri 87 08/07/2023 State Score (1-10), lower number is lower risk 8 08/07/2023 Data from: https://www.neighborhoodatlas.medicine.[facility].edu/. Last address used for calculation [address] 08/07/2023 Comments No Sex and Gender Information Value Date Recorded Sex Assigned at Not on file Legal Sex Female 1:01 PM EST Gender Identity Not on file Sexual Orientation Not on file documented as of this encounter Functional Status * Are you deaf or do you have serious difficulty hearing? Answer Date of Assessment Author No 03/07/2021 11:35 PM Toya Vázquez RN * Are you blind or do you have serious difficulty seeing, even when wearing glasses? Answer Date of Assessment Author No 03/07/2021 11:35 PM Toya Vázquez RN * Do you have serious difficulty walking or climbing stairs? Answer Date of Assessment Author No 03/07/2021 11:35 PM Toya Vázquez RN * Do you have difficulty dressing or bathing? Answer Date of Assessment Author No 03/07/2021 11:35 PM Toya Vázquez RN * Because of a physical, mental, or emotional condition, do you have difficulty doing errands alone such as visiting a doctor's office or shopping? Answer Date of Assessment Author No 03/07/2021 11:35 PM Toya Vázquez RN documented as of this encounter Mental Status * Because of a physical, mental, or emotional condition, do you have serious difficulty concentrating, remembering, or making decisions? Answer Entry Date Author No 03/07/2021 11:35 PM Toya Vázquez RN documented in this encounter Plan of Treatment Upcoming Encounters Date Type Department Care Team (Late st Contact Info) Description 04/20/2025 8:00 AM EST Office Visit Breast Center [address] [phone] Franchesca Man PA-C [address] [place] [address] new breast lump 04/20/2025 9:15 AM EST Appointment Mammography [address] [address] new breast lump documented as of this encounter Visit Diagnoses Not on filedocumented in this encounter Care Teams Account Services Representative Relationship Specialty Start Date End Date Tomasz Glasgow DO [address] [place] [address] 2 [place] [address] PCP - General Family Medicine 12/30/23 Erin Chavez MD [address] [place] [address] Urology 01/01/23 documented as of this encounter
--- OUTSIDE RECORDS SUMMARY | 2025-01-31 11:36 | XMS_ITS | Encounter Summary ---
Author Organization [facility] Address [address] [place] [address] Care Team Providers Care Appraiser Oil And Water Name Role Phone Erin Chavez MD Unavailable Tomasz Glasgow DO Primary Care Provider [phone] Source Comments In the event this information is protected by the Federal Confidentiality of Alcohol and Drug AbusePatient Records regulations: The Federal rules restrict any use of the information to criminally investigate or prosecute any alcohol or drug abuse patient.[facility] Encounter Details Date Type Department Care Team (Late st Contact Info) Description 01/06/2024 Patient Msg Pre Anesthesia [address] [facility] [address] [place] [address] Afia Russo PA-C [address] [place] [address] PATIENT PREOPERATIVE INSTRUCTIONS Social History Tobacco Use Types Packs/Day Years Used Date Smoking Tobacco: Never Smokeless Tobacco: Never Alcohol Use Standard Drinks/Week Comments Yes 0 (1 standard drink = 0.6 oz pure alcohol) about 1-2 times per month will have ~2 drinks Area Deprivation Index Answer Date Tashi rded National Score (1-100), lower number is lower ri sk 87 08/07/2023 State Score (1-10), lower number is lower risk 8 08/07/2023 Data from: https://www.neighborhoodatlas.[facility]/. Last address used for calculation [address] [...] of Assessment Author No 03/07/2021 11:35 PM Tyoa Vázquez RN * Are you blind or [...] AM EST Office Visit Breast Center [address] [address] Franchesca Man PA-C [address] [place] [address] new breast lump 04/20/2025 9:15 AM EST Appointment Mammography [address] [address] new breast lump documented as of this encounter Visit Diagnoses Not on filedocumented in this encounter Care Teams Appraiser Oil [employer] Water Relationship Specialty Start Date End Date Tomasz Glasgow DO [address] [address] PCP - General Family Medicine 12/30/23 Erin Chavez MD [address] [place] [address] Urology 01/01/23 documented as of this encounter
--- OUTSIDE RECORDS SUMMARY | 2025-01-31 11:36 | XMS_ITS | Encounter Summary ---
Author Organization [facility] Address [address] [place] [address] Care Team Providers Care Loan Review Analyst Name Role Phone RadhaRell Nash DO Unavailable [phone] Tomasz Glasgow MD Primary Care Provider [phone] Encounter Details Date Type Department Care Team (Late st Contact Info) Description 07/10/2023 Orders Only [facility] [address] [facility] [address] [place] [address] Jose Pimentel, DO [address] [facility] [address] [place] [address] Social History Tobacco Use Types Packs/Day Years [...] on file documented as of this encounter Procedures Procedure Name Priority Date/Time Associated Diagnosis Comments BI CORE NEEDLE BIOPSY RIGHT Routine 07/10/2023 11:11 AM EDT documented in this encounter Results * BI core needle biopsy right (07/10/2023 11:11 AM EDT) Anatomical Region Laterality Modality Breast Right Mammography Jose Pimentel DO IMG BI PROCEDURES Final R esult documented in this encounter Visit Diagnoses Not on filedocumented in this encounter Care Teams Loan Review Analyst Relationship Specialty Start Date End Date Tomasz Glasgow MD [address] [place] [address] 2 [place] [address] PCP - General Family Medicine 09/24/24 Rell Garcia DO [address] [facility] [address] [place] [address] Referring Physician Obstetrics and Gynecology 06/17/23 09/07/24 documented as of this encounter
--- OUTSIDE RECORDS SUMMARY | 2025-01-31 11:36 | XMS_ITS | Encounter Summary ---
Author Organization [facility] Address [address] [place] [address] Care Team Providers Care Chef Broiler Or Fry Name Role Phone Roxie Strickland NP Primary Care Provider [phone] Erin Chavez MD Unavailable Tomasz Glasgow DO Primary Care Provider [phone] Source Comments In the event this information is protected by the Federal Confidentiality of Alcohol and Drug AbusePatient Records regulations: The Federal rules restrict any use of the information to criminally investigate or prosecute any alcohol or drug abuse patient.[facility] Encounter Details Date Type Department Care Team (Late st Contact Info) Description 10/06/2023 Patient Msg Endocrinology & Metabolic [place] [address] [place] [address] Provider, Ccf Consult to Endocrinology Social History Tobacco Use Types Packs/Day Years Used Date Smoking Tobacco: Never Assessed Area Deprivation Index Answer Date Tashi rded National Score (1-100), lower number is lower ri sk 87 08/07/2023 State Score (1-10), lower number is lower risk 8 08/07/2023 Data from: https://www.neighborhoodatlas.medicine.[facility].edu/. Last address used for calculation [address] [facility] 08/07/2023 Comments No Sex and Gender Information [...] AM EST Office Visit Breast Center [phone] Franchesca Man PA-C [address] [place] [address] new breast lump 04/20/2025 9:15 AM EST Appointment Mammography [address] [phone] new breast lump documented as of this encounter Visit Diagnoses Not on filedocumented in this encounter Care Teams Chef Broiler Or Fry Relationship Specialty Start Date End Date Roxie Strickland NP [address] [place], [place] [address] [place] [address] PCP - General Family Medicine 10/19/16 12/29/23 Tomasz Glasgow DO [address] [facility] 2 [place] [address] PCP - General Family Medicine 12/30/23 Erin Chavez MD [address] [place] [address] Urology 01/01/23 documented as of this encounter
--- OUTSIDE RECORDS SUMMARY | 2025-01-31 11:36 | XMS_ITS | Clinical Summary ---
Author Organization [facility] Address [address] [place] [address] Care Team Providers Care Terminal Clerk Name Role Phone Tomasz Glasgow MD Primary Care Provider [phone] Allergies Active Allergy Reactions Criticality Noted Date Comments Azithromycin Rash,Unknown Low 03/31/2012 Other Reaction(s): Itching Ceftriaxone 12/18/2022 Other Reaction(s): Mean Ciprofloxacin Itching,Rash,Unkn own Low 03/31/2012 Dicyclomine Other 06/01/2024 Dicyclomine Hcl 11/06/2014 Hydrocodone 11/06/2014 Ketorolac Itching,Unknown 11/06/2014 Lorazepam Unknown 03/06/2021 Methylprednisolone Unknown,Rash Low 01/06/2024 Rash, blistering Metoclopramide Itching,Rash,Unkn own Low 03/31/2012 And anxiety Morphine Unknown 06/17/2023 Nitrofurantoin Hives,Itching 12/17/2023 Nitrofurantoin Macrocrystal Unknown 06/17/19 24 Penicillins Unknown 03/31/2012 Other Reaction(s): Unknown Asa child Asa child Zolpidem Unknown 12/18/2022 Medications acetaminophen (Tylenol) 325 MG tablet Take 650 mg by mouth every 6 (six) hours if needed Active ALPRAZolam (Xanax) 2 MG tablet Take 2 mg by mouth 2 (two) times a day as needed for anxiety 06/06/2023 Active montelukast (Singulair) 10 MG tablet TAKE 1 TABLET BY MOUTH EVERY DAY FOR 30 DAYS Active tiZANidine (Zanaflex) 4 MG tablet TAKE 1 TABLET BY MOUTH EVERY 8 HOURS NEEDED FOR BACK SPAMS Active valACYclovir (Valtrex) 1 g tablet if needed 01/01/2023 Active estradiol (Estrace) 1 MG tabletIndicatio ns:Mood changes,Hot flashes,Low libido Take 1 tablet (1 mg) by mouth Daily 90 tablet 1 06/02/2024 Active phentermine (Adipex-P) 37.5 MG tablet Take 37.5 mg by mouth Daily 07/26/2024 Active Active Problems Problem Noted Date Diagnosed Date Bloody discharge from right nipple 05/27/2024 POTS (postural orthostatic tachycardia syndrome) 01/06/2024 Breast fibroadenoma, right 12/26/2023 Mammogram abnormal 07/02/2023 Mass of lower outer quadrant of right breast 02/2024 Acquired hallux valgus 06/17/2023 Fibrocystic breast changes 06/17/2023 Pain in right foot 06/17/2023 Headache 03/07/2021 Seizure 03/06/2021 Resolved Problems Problem Noted Date Diagnosed Date Resolved Date Abnormal uterine bleeding 06/17/2023 Dysmenorrhea 06/17/2023 06/17/2023 Endometriosis 06/17/2023 06/17/2023 Oligomenorrhea 06/17/2023 06/17/2023 Vaginal odor 06/17/2023 06/17/2023 Family History Medical History Relation Name Comments Lung cancer Father Brain Aneurysm Father's Sister 1 Breast cancer Father's Sister 1 not COD Breast cancer Father's Sister 2 not COD Lung cancer Father's Sister 2 COD Breast cancer Paternal Grandmother went i nto remission, not COD COPD Paternal Grandmother COD Emphysema Paternal Grandmother Colon cancer Neg Hx Ovarian cancer Neg Hx Relation Name Status Comments Brother 4 Father Alive Father's Sister 1 Father's Sister 2 Mother Alive Paternal Grandmother Sister 2 Social History Tobacco Use Types Packs/Day Years Used Date Smoking Tobacco: Never Smokeless Tobacco: Never Tobacco Cessation:Counseling Given: Not Answered Alcohol Use Standard Drinks/Week Comments Yes 2 [...] on file Sexual Orientation Not on file Last Filed Vital Signs Vital Sign Reading Time Taken Comments Blood Pressure 122/80 06/02/2024 8:06 AM EST Pulse - - Temperature - - Respiratory Rate - - Oxygen Saturation - - Inhaled Oxygen Concentration - - Weight 103 kg (227 lb) 09/08/2024 1:53 PM EDT Height 165.1 cm (5' 5 ) 09/08/2024 1:53 PM EDT Body Mass Index 37.77 09/08/2024 1:53 PM EDT Plan of Treatment Not on file Insurance [employer] Care Teams Terminal Clerk Relationship Specialty Start Date End Date Tomasz Glasgow MD [address] [place] [phone] PCP - General Family Medicine 09/24/24
--- OUTSIDE RECORDS SUMMARY | 2025-01-31 11:36 | XMS_ITS | Encounter Summary ---
Author Organization [facility] Address [facility] [place] [address] Care Team Providers Care Steward/Stewardess Chief Cargo Vessel Name Role Phone Roxie Strickland NP Primary Care Provider +1- [phone] Erin Chavez MD Unavailable Tomasz Glasgow DO Primary Care Provider +1- [phone] Source Comments In the event this information is protected by the Federal Confidentiality of Alcohol and Drug AbusePatient Records regulations: The Federal rules restrict any use of the information to criminally investigate or prosecute any alcohol or drug abuse patient.[facility] Encounter Details Date Type Department Care Team (Late st Contact Info) Description 09/12/2023 Patient [facility] [address] [phone] Provider, [facility] Breast Surgeon Consultation Social History Tobacco Use Types Packs/Day Years Used Date Smoking Tobacco: Never Assessed Area Deprivation Index Answer Date Tashi rded National Score (1-100), lower number is lower ri sk 87 08/07/2023 State Score (1-10), lower number is lower risk 8 08/07/2023 Data from: https://www.neighborhoodatlas.medicine.[facility].edu/. Last address used for calculation [address] [facility] 08/07/2023 Comments No Sex and [...] AM EST Office Visit Breast Center [address] [place] [phone] Franchesca Man PA-C [address] [place] [address] new breast lump 04/20/2025 9:15 AM EST Appointment Mammography [address] [address] new breast lump documented as of this encounter Visit Diagnoses Not on filedocumented in this encounter Care Teams Steward/Stewardess Chief Cargo Vessel Relationship Specialty Start Date End Date Roxie Strickland NP [address] [place], [place] [address] [address] [place] [address] PCP - General Family Medicine 10/19/16 12/29/23 Tomasz Glasgow DO [address] [place] [address] PCP - General Family Medicine 12/30/23 Erin Chavez MD [address] [place] [address] Urology 01/01/23 documented as of this encounter
--- OUTSIDE RECORDS SUMMARY | 2025-01-31 11:36 | XMS_ITS | Clinical Summary ---
Author Organization [facility] Address [address] [place] [address] Care Team Providers Care Naturalization Examiner Name Role Phone Erin Chavez MD Unavailable Tomasz Glasgow DO Primary Care Provider +1- [phone] Allergies Active Allergy Reactions Criticality Noted Date Comments Ciprofloxacin Unknown 03/06/2021 Dicyclomine Unknown 03/06/2021 Ketorolac Unknown 03/06/2021 Lorazepam Unknown 03/06/2021 Methylprednisolone Other: See Comments 01/06/20 24 Rash, blistering Nitrofurantoin Unknown 03/06/2021 Penicillins Unknown 03/06/2021 Prednisone Intolerance 12/26/2023 Metoclopramide Unknown 03/06/2021 Azithromycin Unknown 03/06/2021 Medications ALPRAZolam (XANAX) 1 mg tablet Take 1 mg by mouth twice daily as needed. Active tizanidine HCl (ZANAFLEX ORAL) Zanaflex Acti ve Phentermine HCl 37.5 mg tablet once daily. 10/15/2022 Ac tive acetaminophen (TYLENOL) 325 mg tablet Take 2 tablets by mouth every 6 hours as needed (for pain.). 20 tablet 01/08/2024 Active ondansetron (ZOFRAN) 4 mg tablet Take 1 tablet by mouth every 8 hours as needed for nausea/vomiti ng. 12 tablet 01/09/2024 Active estradiol (ESTRACE) 1 mg tablet Take 1 mg by mouth once daily. 06/02/2024 06/02/19 26 Active Active Problems Problem Noted Date Diagnosed Date Difficult intravenous access 01/06/2024 Assessment & Plan (01/06/2024 2:05 PM EDT): Assessment: has had difficulty with IV access, has needed US machine Obesity (BMI 30-39.9) 01/06/2024 Assessment & Plan (01/06/2024 2:09 PM EDT): Assessment: on phentermine for weight loss Last dose ~01/01/2024 or 01/02/2024, patient unsure which date, but will be on hold for at least 5 days for surgery POTS (postural orthostatic tachycardia syndrome) 01/06/2024 Assessment & Plan (01/06/2024 2:09 PM EDT): Assessment: has seen neuro and cardiology Rash 01/06/2024 Assessment & Plan (01/06/2024 2:13 PM EDT): Assessment: patient reports she has a rash [...] encounter since rash and lump still present Breast fibroadenoma, right 12/26/2023 Headaches 03/07/2021 Seizure 03/06/2021 Assessment & Plan (01/06/2024 2:09 PM EDT): Assessment: hx seizures, stress and anxiety induced 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 No epilepsy per patient No treatment needed per patient Takes xanax PRN Saw neurology Encounters Date Type Department Care Team Description 01/19/2025 Patient [facility] [address] [place] [address] Anastasia Hi PA-C Appointment Request 01/03/2025 Telephone Breast Center [address] [address] Anastasia Hi PA-C Appointment 12/02/2024 Patient [facility] [address] [place] [address] Anastasia Hi PA-C Appointment Request from Last 3 Months Family History Medical History Relation Comments Heart Attack Father Lung Cancer Father Cancer Maternal Grandmother IN NECK Osteoporosis Maternal Grandmother Breast Cancer Paternal Aunt 1 unsure of age at diagnosis Breast Cancer Paternal Aunt 2 diagnosed in her 40s Breast Cancer Paternal Grandmother Relation Status Comments Father Maternal Grandmother Paternal Aunt 1 Alive Paternal Aunt 2 Alive Paternal Grandmother Social History Tobacco Use Types Packs/Day Years Used Date Smoking Tobacco: Never Smokeless Tobacco: Never Tobacco Cessation:Counseling Given: Not Answered Alcohol Use Standard Drinks/Week Comments Yes 0 (1 standard drink = 0.6 oz pure alcohol) about 1-2 times per month will have ~2 drinks Area Deprivation Index Answer Date Tashi rded National Score (1-100), lower number is lower ri sk 87 08/07/2023 State Score (1-10), lower number is lower risk 8 08/07/2023 Data from: https://www.neighborhoodatlas.medicine.[facility].edu/. Last address used for calculation [address] 08/07/2023 Comments No Sex and Gender Information Value Date Recorded Sex Assigned at Not on file Legal Sex Female 1:01 PM EST Gender Identity Not on file Sexual Orientation Not on file Last Filed Vital Signs Vital Sign Reading Time Taken Comments Blood Pressure 128/87 06/25/2024 11:29 AM EST Pulse 69 06/25/2024 11:29 AM EST Temperature 36.6 C (97.8 F) 06/25/2024 11:29 AM EST Respiratory Rate 18 06/25/2024 11:2 9 AM EST Oxygen Saturation 98% 06/25/2024 11: 29 AM EST Inhaled Oxygen Concentration - - Weight 106.1 kg (233 lb 14.5 oz) 2024 11:29 AM EST Height 165.1 cm (5' 5 ) 03/12/2024 9:52 AM EST Body Mass Index 38.92 03/12/2024 9:52 AM EST Plan of Treatment Upcoming Encounters Date Type Department Care Team (Late st Contact Info) Description 04/20/2025 8:00 AM EST Office Visit Breast Center [address] [place] [phone] Franchesca Man, KIKE [address] [place] [phone] new breast lump 04/20/2025 9:15 AM EST Appointment Mammography [address]48 [place] [address] new breast lump Health Maintenance Due Date Last Done Comments Anxiety Screening 2007 Depression Screening 2007 HIV Screening 2007 Hepatitis C Screening 2007 DTaP,Tdap,Td Vaccine (1 - Tdap) 02/19/2008 Cervical Cancer Screening 02/06/2013 02/06/2010 Hepatitis B Vaccine (3 of 3 - 19+ 3-dose series) 04/15/2014 2014, 01/18/2013 HPV Vaccine (1 - 3-dose SCDM series) 02/19/2016 Covid-19 Vaccine ( season) 2024 Influenza Vaccine (#1) 2024 2014, 2010 Medical Devices Implanted Type Area Manager Of Marketing Device Identifier Shelf Expiration Date Model / Serial / Lot Ultrasoujnd Clip Implanted:Qty: 1 on 09/08/2023 by Lea Almanzar MD at [facility] Right: Breast 04/02/2026 / / [id number] Description:Hydromark coil Ultrasound Liv Implanted:Qty: 1 on 01/07/2024 at [facility] Right: Breast 11/20/2026 / / [id number] Description:Liv Procedures Procedure Name Priority Date/Time Associated Diagnosis Comments PAP FLUID CERVICAL SCREENING Routine 02/06/2010 from Last 3 Months or Most Recently Relevant to Health Maintenance Results * PAP FLUID CERVICAL SCREENING (02/06/2010) Slice Cutting Machine Operator Helper ADDITIONAL PROCEDURES PRESENT Specimen #: [id number] Submitting Physician: CAROLE TOBAR M.D. SPECIMEN SUBMITTED A: CERVICAL,SCREENIN G, FLUID FINAL DIAGNOSIS A. CERVICAL,SCREENIN G, FLUID Satisfactory for interpretation. No endocervical component. Epithelial cell abnormality. Atypical squamous cells of undetermined significance (ASC-US). This specimen has been analyzed by the JamHubPrep Imaging System (eBrisk Video), an automated imaging and review system, which assists the laboratory in evaluating cells on ThinPrep Pap tests. Following automated imaging, selected baugh from every slide are reviewed by a learning disabled teacher. Will Nino M.D. (Electronic Signature) ADDITIONAL PROCEDURE(S) HUMAN PAPILLOMA VIRUS Date Ordered: 02/15/2010 Date Reported: 02/20/2010 Procedure Results and Interpretation Positive for one or more of the following High/Intermediate risk HPV types: 16, 18, 31, 33, 35, 39, 45, 51, 52, 56, 58, 59, 68. Low risk HPV types are not detected by this assay. (Electronic Signature) CLINICAL DATA Date of Last Menstrual Period: 09/10/09 Menstrual History: Clinical History: H/O LGSIL: 05/19/09 Additional Testing: Reflex HPV testing for ASCUS STAINS A: CERVICAL,SCREENIN G, FLUID THIN PREP ASSEMBLY LINE WORKER x 1 : 1990 (Age: 19) F Date of Report: 02/15/2010 Date of Procedure: 02/06/2010 Date of Receipt: 02/08/2010 Submitted by: CAROLE TOBAR M.D. Location: Test performed by: [address] [address] [facility] 02/06/2010 02/08/2010 6:4 7 AM EDT us [facility] Provider CYTOLOGY Edited [facility] [address] [place] [address] from Last 3 Months or Most Recently Relevant to Health Maintenance Insurance [employer] Care Teams Naturalization Examiner Relationship Specialty Start Date End Date Tomasz Glasgow DO [address] [place] [address] 2 [place] [address] PCP - General Family Medicine 12/30/23 Erin Chavez MD [address] [place] [address] Urology 01/01/23
--- OUTSIDE RECORDS SUMMARY | 2025-01-31 11:36 | XMS_ITS | Patient Health Record ---
Author Organization [facility] [place] Address [address] [place] [address] Care Team Providers Care Hand Flatwork Finisher Name Role Phone Tomasz Glasgow DO Primary Care Provider Unavailab le Allergies Allergen (clinical drug ingredient) Drug/Non Drug Allergy documented on EMR Reaction Allergy Type Onset Date Status ciprofloxacin Cipro Unknown Drug Allergy Act wang nitrofurantoin, macrocrystals / nitrofurantoin, monohydrate Macrobid Unknown Drug Allergy Active metoclopramide Reglan Unknown Drug Allergy Ac tive azithromycin Zithromax Unknown Drug Allergy Acti ve Penicillin Unknown Drug Allergy Active Reason For Referral No Information Medications Medication SIG (Take, Route, Frequency, Duration) Notes Start Date End Date Status Adipex-P 37.5 MG 1 tablet before noah kfast Orally Once a day Active HYDROcodone-Acetaminophen 5-325 MG 1 tablet as needed for pain Orally every 4 hours; Duration: 7 days 04/29/2023 Active ALPRAZolam 1 MG 1 tablet Orally Twic e a day Active tiZANidine HCl 4 MG 1 tablet as needed O rally Three times a day Active Social History Tobacco Use: Social History Observation Description Date Details (start date - stop date) Never Smoker NA - NA Tobacco Use/Smoking Question Answer Notes Patient is a nonsmoker Problems Problem Type SNOMED Code ICD Code Onset Dates Problem Status W/U Status Risk Notes Problem Arthralgia of the ankle and/or foot (159606590) Pain in left ankle and joints of left foot (M25.572) Active confirmed Problem Pain in left foot (388229147766418 ) Pain in left foot (M79.672) Active confirmed Plan Of Treatment No Information Insurance Providers Payer Name Payer Address Payer Phone Subscriber Number Group Number Insured Name Patient Relationship to Insured Coverage Start Date Coverage End Date [employer] [place]ICA[place] [address] [place], [place] [id number] [phone] [id number] Sully Leone Self - patient is the insured Medical (General) History Medical History History ICD Code left ankle pain left foot pain Surgical History Surgery Date(Month/Year) hysterectomy 2021 kidney stone removal bunion removal right foot 2021 nephrostomy tube 2021 Hospitalization History Reason Date(Month/Year) of childrenx4
--- OUTSIDE RECORDS SUMMARY | 2025-01-31 11:36 | XMS_ITS | Encounter Summary ---
Author Organization [facility] Address [address] [place] [address] Care Team Providers Care Art Preparator Name Role Phone Erin Chavez MD Unavailable Tomasz Glasgow DO Primary Care Provider [phone]- [phone] Source Comments In the event this information is protected by the Federal Confidentiality of Alcohol and Drug AbusePatient Records regulations: The Federal rules restrict any use of the information to criminally investigate or prosecute any alcohol or drug abuse patient.[facility] Encounter Details Date Type Department Care Team (Late st Contact Info) Description 03/07/2024 Patient [facility] Breast Center [address] [place] [phone] Franchesca Man PA-C [address] [facility] [address] [place] [address] Appointment Request Social History Tobacco [...] risk 8 08/07/2023 Data from: https://www.neighborhoodatlas.medicine.[facility].edu/. Last address used for calculation [address] [...] AM EST Office Visit Breast Center [address] [place] [phone] Franchesca Man PA-C [address] [place] [address] new breast lump 04/20/2025 9:15 AM EST Appointment Mammography [address] [address] new breast lump documented as of this encounter Visit Diagnoses Not on filedocumented in this encounter Care Teams Art Preparator Relationship Specialty Start Date End Date Tomasz Glasgow DO [address] [place] [address] 2 [place] [address] PCP - General Family Medicine 12/30/23 Erin Chavez MD [address] [place] [address] Urology 01/01/23 documented as of this encounter
--- OUTSIDE RECORDS SUMMARY | 2025-01-31 11:37 | XMS_ITS | Encounter Summary ---
Author Organization [facility] Address [address] [place] [address] Care Team Providers Care Pierogi Maker Name Role Phone Erin Chavez MD Unavailable Tomasz Glasgow DO Primary Care Provider [phone]- [phone] Source Comments In the event this information is protected by the Federal Confidentiality of Alcohol and Drug AbusePatient Records regulations: The Federal rules restrict any use of the information to criminally investigate or prosecute any alcohol or drug abuse patient.[facility] Encounter Details Date Type Department Care Team (Late st Contact Info) Description 12/02/2024 Patient [facility] [address] [place] [address] Anastasia Hi PA-C [address] [place] [address] Appointment Request Social History Tobacco [...] is lower risk 8 08/07/2023 Data from: https://www.neighborhoodatlas.medicine.[facility]/. Last address used for calculation [...] Assessment Author No 03/07/2021 11:35 PM Toya Váqzuez RN * Do you have difficulty dressing [...] AM EST Office Visit Breast Center [address] [place] [phone] Franchesca Man PA-C [address] [place] [address] new breast lump 04/20/2025 9:15 AM EST Appointment Mammography [address] [place] [phone] new breast lump documented as of this encounter Visit Diagnoses Not on filedocumented in this encounter Care Teams Pierogi Maker Relationship Specialty Start Date End Date Tomasz Glasgow DO [address] [place] [address] 2 [place] [address] PCP - General Family Medicine 12/30/23 Erin Chavez MD [address] [place] [address] Urology 01/01/23 documented as of this encounter
--- OUTSIDE RECORDS SUMMARY | 2025-01-31 11:37 | XMS_ITS | Clinical Summary ---
Author Organization [facility] Address [address] [place] [address] Care Team Providers Care Wheel Filler Name Role Phone Roxie Strickland CNP Primary Care Provider [phone] Allergies Active Allergy Reactions Criticality Noted Date Comments Lorazepam Other 12/17/2023 Gets mean Nitrofurantoin Monohyd/M-Cryst Hives 12/16 Penicillins Other 12/17/2023 unknown Metoclopramide Hcl Other 12/17/2023 Really mean Ketorolac Other 12/17/2023 Gets mean Azithromycin Hives 12/17/2023 Medications acetaminophen-c odeine (Tylenol w/ Codeine #3) 300-30 mg tablet TAKE 1 TABLET BY MOUTH EVERY 6 HOURS NEEDED FOR PAIN FOR 3 DAYS 12/05/2023 Active ALPRAZolam (Xanax) 2 mg tablet Take 2 mg by mouth if needed in the morning and at bedtime. 06/06/2023 Active phentermine (Adipex-P) 37.5 mg tablet TAKE ONE TABLET BY MOUTH ONCE DAILY FOR 30 DAYS 12/04/2023 Active tiZANidine (Zanaflex) 4 mg tablet TAKE 1 TABLET BY MOUTH EVERY 8 HOURS NEEDED FOR BACK SPAMS 08/27/2023 Active valACYclovir (Valtrex) 1 gram tablet TAKE 1 TABLET BY MOUTH TWICE A DAY NEEDED FOR COLD SORES FOR 10 DAYS 08/22/2023 Active Family History Medical History Relation Name Comments Schizophrenia Brother AAA Father COPD Father Lung cancer Father Breast cancer Paternal Grandmother Relation Name Status Comments Brother Father Paternal Grandmother Social History Tobacco Use Types Packs/Day Years Used Date Smoking Tobacco: Never Smokeless Tobacco: Never Tobacco Cessation:Counseling Given: Not Answered Alcohol Use Standard Drinks/Week Comments Yes 0 (1 standard drink = 0.6 oz pur e alcohol) few times per month [facility] Utilities Answer Date Recorded In the past 12 months has th e electric, gas, oil, or water company threatened to shut off services in your home? No 12/17/2023 Humiliation, Afraid, Rape, and Kick questionnair e Answer Date Recorded Within the last year, have y ou been afraid of your partner or ex-partner? No 12/17/2023 Emotionally Abused Not on file 12/17/2023 Physically Abused Not on file 12/17/2023 Sexually Abused Not on file 12/17/2023 Overall Financial Resource Strain (CARDIA) Answe r Date Recorded How hard is it for you to pa y for the very basics like food, housing, medical care, and heating? Not hard at all 12/17/2023 Transportation Answer Date Recorded In the past 12 months, has l ack of transportation kept you from medical appointments or from getting medications? No 12/17/2023 Lack of Transportation (Non-Medical) Not on file 12/17/2023 Housing Stability Vital Sign Answer Kali e Recorded Unable to Pay for Housing in the Last Year Not o n file 12/17/2023 Number of Places Lived in the Last Year Not on f ile 12/17/2023 In the last 12 months, was t here a time when you did not have a steady place to sleep or slept in a long term (including now)? No 12/17/2023 Hunger Vital Sign Answer Date Recorded Within the past 12 months, y ou worried that your food would run out before you got the money to buy more. Never true 12/17/19 24 Ran Out of Food in the Last Year Not on file 12/17/2023 Comments No Sex and Gender Information Value Date Recorded Sex Assigned at Not on file Legal Sex Female 11:04 PM EDT Gender Identity Not on file Sexual Orientation Not on file Last Filed Vital Signs Vital Sign Reading Time Taken Comments Blood Pressure 97/65 12/17/2023 9:08 AM EDT Pulse 72 12/17/2023 2:40 AM EDT Temperature 36.7 C (98.1 F) 12/17/2023 2:40 AM EDT Respiratory Rate 16 12/17/2023 2:38 AM EDT Oxygen Saturation 94% 12/17/2023 9:08 AM EDT Inhaled Oxygen Concentration - - Weight 103 kg (228 lb) 12/17/2023 2:38 AM EDT Height 165.1 cm (5' 5 ) 12/17/2023 2:38 AM EDT Body Mass Index 37.94 12/17/2023 2:38 AM EDT Plan of Treatment Health Maintenance Due Date Last Done Comments Depression Screening 2001 Varicella Vaccines (1 of 2 - 13+ 2-dose series) 2002 Hepatitis B Vaccines (1 of 3 - 19+ 3-dose series) 02/19/2008 Pap Smear 2010 Adult Tetanus 2011 Cervical Cancer Screening 2019 HPV/Cotest 2019 COVID-19 Vaccine (1 - 2023-2 5 season) 2024 Influenza Vaccine (#1) 2024 Zoster Vaccines (1 of 2) 2039 HIB Vaccines Aged Out No longer eligi ble based on patient's age to complete this topic HPV Vaccines Aged Out No longer eligi ble based on patient's age to complete this topic IPV Vaccines Aged Out No longer eligi ble based on patient's age to complete this topic Meningococcal B Vaccine Aged Out No l onger eligible based on patient's age to complete this topic Meningococcal Vaccine Aged Out No chika tyrel eligible based on patient's age to complete this topic Pneumococcal Vaccine: Pediat rics (0 to 5 Years) and At-Risk Patients (6 to 64 Years) Aged Out No longer eligible b ased on patient's age to complete this topic Rotavirus Vaccines Aged Out No longer eligible based on patient's age to complete this topic Insurance [employer] [place] MEDICA[employer] Care Teams Wheel Filler Relationship Specialty Start Date End Date Roxie Strickland CNP [address] [place] [address] [address] [place] [address] PCP - General 12/17/23
--- OUTSIDE RECORDS SUMMARY | 2025-01-31 11:37 | XMS_ITS | Encounter Summary ---
Author Organization [facility] Address [address] [place] [address] Care Team Providers Care Slab Lifting Engineer Name Role Phone Erin Chavez MD Unavailable Tomasz Glasgow DO Primary Care Provider [phone]- [phone] Source Comments In the event this information is protected by the Federal Confidentiality of Alcohol and Drug AbusePatient Records regulations: The Federal rules restrict any use of the information to criminally investigate or prosecute any alcohol or drug abuse patient.[facility] Encounter Details Date Type Department Care Team (Late st Contact Info) Description 01/19/2025 Patient [facility] [address] [place] [address] Anastasia Hi PA-C [address] [place] [address] Appointment Request Social History Tobacco Use Types Packs/Day Years Used Date Smoking Tobacco: Never Smokeless Tobacco: Never Alcohol Use Standard Drinks/Week Comments Yes 0 (1 standard drink = 0.6 oz pure alcohol) about 1-2 times per month will have ~2 drinks Area Deprivation Index Answer Date Tasih rded National Score (1-100), lower number is lower ri 87 08/07/2023 State Score (1-10), lower number is lower risk 8 08/07/2023 Data from: https://www.neighborhoodatlas.medicine.[facility]/. Last address used for calculation [address] [...] AM EST Office Visit Breast Center [address] [place] [phone] Franchesca Man PA-C [address] [place] [address] new breast lump 04/20/2025 9:15 AM EST Appointment Mammography [address] [place] [phone] new breast lump documented as of this encounter Visit Diagnoses Not on filedocumented in this encounter Care Teams Slab Lifting Engineer Relationship Specialty Start Date End Date Tomasz Glasgow DO [address] [place] [address] 2 [place] [address] PCP - General Family Medicine 12/30/23 Erin Chavez MD [address] [place] [address] Urology 01/01/23 documented as of this encounter
--- OUTSIDE RECORDS SUMMARY | 2025-01-31 11:37 | XMS_ITS | Clinical Summary ---
Author Organization [facility] Address [address], [address] [place] [address] Care Team Providers Care Optics Manufacturing Technician Name Role Phone Brandon Nieves MD Primary Care Provider + Allergies Active Allergy Reactions Criticality Noted Date Comments Dicyclomine Hcl 11/06/2014 Ciprofloxacin Rash Low 03/31/2012 Hydrocodone 11/06/2014 Lorazepam Other (See Comments) 03/06/2021 Gets mean Nitrofurantoin Rash Low 03/31/2012 Methylprednisolone Rash Low 01/06/2024 Rash, blistering Penicillins Other (See Comments) 03/31/2012 Asa child Metoclopramide Rash Low 03/31/2012 And anxiety Ketorolac Tromethamine 11/06/2014 Azithromycin Rash Low 03/31/2012 Medications ibuprofen (ADVIL;MOTRIN) 200 MG tablet Take 200 mg by mouth every 6 hours as needed for Pain Active acetaminophen (TYLENOL) 325 MG tablet Take 650 mg by mouth every 6 hours as needed for Pain Active traZODone (DESYREL) 150 MG tablet Take 150 mg by mouth nightly as needed for Sleep Active gabapentin (NEURONTIN) 100 MG capsule Take 100 mg by mouth 3 times daily Active tranexamic acid (LYSTEDA) 650 MG TABS tablet Take 650 mg by mouth 3 times daily Active busPIRone (BUSPAR) 10 MG tablet Take 10 mg by mouth 2 times daily Active ALPRAZolam (XANAX) 1 MG tablet Take 1 mg by mouth 3 times daily as needed for Sleep Active Social History Tobacco Use Types Packs/Day Years Used Date Smoking Tobacco: Never Smokeless Tobacco: Never Alcohol Use Standard Drinks/Week Comments No 0 (1 standard drink = 0.6 oz pur e alcohol) AUDIT-C Answer Date Recorded Q1: How often do you have a drink containing alc ohol? Monthly or less 05/18/2024 Q2: How many drinks containi ng alcohol do you have on a typical day when you are drinking? 3 or 4 05/18/2024 Q3: How often do you have si x or more drinks on one occasion? Less than monthly 05/18/2024 Comments No Sex and Gender Information Value Date Recorded Sex Assigned at Not on file Legal Sex Female 5:59 PM EST Gender Identity Not on file Sexual Orientation Not on file Last Filed Vital Signs Vital Sign Reading Time Taken Comments Blood Pressure 114/72 05/18/2024 1:41 PM EST Pulse 71 05/18/2024 1:41 PM EST Temperature 37.2 C (99 F) 05/18/2024 11:10 AM EST Respiratory Rate 16 05/18/2024 1:41 PM EST Oxygen Saturation 100% 05/18/2024 1:41 PM EST Inhaled Oxygen Concentration - - Weight 104.3 kg (230 lb) 05/18/2024 11:10 AM EST Height 165.1 cm (5' 5 ) 05/18/2024 11:10 AM EST Body Mass Index 38.27 05/18/2024 11:10 AM EST Plan of Treatment Health Maintenance Due Date Last Done Comments Depression Screen 2001 Varicella vaccine (1 of 2 - 13+ 2-dose series) 2002 HIV screen 02/19/2004 Hepatitis C screen 2007 DTaP/Tdap/Td vaccine (1 - Tdap) 02/19/2008 Hepatitis B vaccine (1 of 3 - 19+ 3-dose series) 02/19/2008 Flu vaccine (#1) 11/19/2024 COVID-19 Vaccine ( - 2023-2 5 season) 2024 HPV vaccine (No Doses Required) Completed Hepatitis A vaccine Aged Out No longe r eligible based on patient's age to complete this topic Hib vaccine Aged Out No longer eligi ble based on patient's age to complete this topic Meningococcal (ACWY) vaccine Aged Out No longer eligible based on patient's age to complete this topic Meningococcal B vaccine Aged Out No l onger eligible based on patient's age to complete this topic Pneumococcal 0-49 years Vaccine Aged Out No longer eligible based on patient's age to complete this topic Polio vaccine Aged Out No longer elig ible based on patient's age to complete this topic Insurance [employer] Care Teams Optics Manufacturing Technician Relationship Specialty Start Date End Date Brandon Nieves MD PCP - General 11/06/14
--- OUTSIDE RECORDS SUMMARY | 2025-01-31 11:37 | XMS_ITS | Encounter Summary ---
Author Organization [facility] Address [address] [place] [address] Care Team Providers Care Gullet Slitter Name Role Phone Erin Chavez MD Unavailable Tomasz Glasgow DO Primary Care Provider [phone] Source Comments In the event this information is protected by the Federal Confidentiality of Alcohol and Drug AbusePatient Records regulations: The Federal rules restrict any use of the information to criminally investigate or prosecute any alcohol or drug abuse patient.[facility] Encounter Details Date Type Department Care Team (Late st Contact Info) Description 05/12/2024 Patient Msg Breast Center [address] [address] Anastasia Hi PA-C [address] [place] [address] Appointment Request Social History Tobacco [...] is lower risk 8 08/07/2023 Data from: https://www.neighborhoodatlas.medicine.[facility]/. Last address used for calculation [address] [...] AM EST Office Visit Breast Center [phone] Franchesca Man PA-C [address] [place] [address] new breast lump 04/20/2025 9:15 AM EST Appointment Mammography [address] [phone] new breast lump documented as of this encounter Visit Diagnoses Not on filedocumented in this encounter Care Teams Gullet Slitter Relationship Specialty Start Date End Date Tomasz Glasgow DO [address] [place] [address] 2 [place] [address] PCP - General Family Medicine 12/30/23 Erin Chavez MD [address] [place] [address] Urology 01/01/23 documented as of this encounter
--- OUTSIDE RECORDS SUMMARY | 2025-01-31 11:37 | XMS_ITS | Encounter Summary ---
Author Organization [facility] Address [address] [place] [address] Care Team Providers Care Credit Officer Name Role Phone Erin Chavez MD Unavailable Tomasz Glasgow DO Primary Care Provider [phone] Source Comments In the event this information is protected by the Federal Confidentiality of Alcohol and Drug AbusePatient Records regulations: The Federal rules restrict any use of the information to criminally investigate or prosecute any alcohol or drug abuse patient.[facility] Encounter Details Date Type Department Care Team (Late st Contact Info) Description 06/18/2024 Patient Msg Breast Center [address] [phone] Franchesca Man PA-C [address] [facility] [address] [place] [address] Appointment Request Social History Tobacco [...] is lower risk 8 08/07/2023 Data from: https://www.neighborhoodatlas.medicine.[facility].edu/. Last address used for calculation [address] [...] AM EST Office Visit Breast Center [phone] Franchesca Man PA-C [address] [place] [address] new breast lump 04/20/2025 9:15 AM EST Appointment Mammography [address] [address] new breast lump documented as of this encounter Visit Diagnoses Not on filedocumented in this encounter Care Teams Credit Officer Relationship Specialty Start Date End Date Tomasz Glasgow DO [address] [place] [address] 2 [place] [address] PCP - General Family Medicine 12/30/23 Erin Chavez MD [address] [place] [address] Urology 01/01/23 documented as of this encounter
--- OUTSIDE RECORDS SUMMARY | 2025-01-31 11:38 | XMS_ITS | Encounter Summary ---
Author Organization [facility] Address [address] [place] [address] Care Team Providers Care Appraiser Land Name Role Phone Erin Chavez MD Unavailable Tomasz Glasgow DO Primary Care Provider [phone]- [phone] Source Comments In the event this information is protected by the Federal Confidentiality of Alcohol and Drug AbusePatient Records regulations: The Federal rules restrict any use of the information to criminally investigate or prosecute any alcohol or drug abuse patient.[facility] Encounter Details Date Type Department Care Team (Late st Contact Info) Description 06/22/2024 Patient Msg Breast Center [address] [address] Anastasia Hi PA-C [address] [place] [address] Appointment Request Social History Tobacco [...] is lower risk 8 08/07/2023 Data from: https://www.neighborhoodatlas.medicine.[facility]/. Last address used for calculation [address] [...] AM EST Office Visit Breast Center [phone] Franchesca Man PA-C [address] [place] [address] new breast lump 04/20/2025 9:15 AM EST Appointment Mammography [address] [phone] new breast lump documented as of this encounter Visit Diagnoses Not on filedocumented in this encounter Care Teams Appraiser Land Relationship Specialty Start Date End Date Tomasz Glasgow DO [address] [place] [address] 2 [place] [address] PCP - General Family Medicine 12/30/23 Erin Chavez MD [address] [place] [address] Urology 01/01/23 documented as of this encounter
--- OUTSIDE RECORDS SUMMARY | 2025-01-31 11:38 | XMS_ITS | Encounter Summary ---
Author Organization [facility] Address [address] [place] [address] Care Team Providers Care Boardmarker Name Role Phone Rell Garcia DO Unavailable [phone] Tomasz Glasgow MD Primary Care Provider [phone] Encounter Details Date Type Department Care Team (Late st Contact Info) Description 07/07/2023 External Result Encounter [facility] External Department Unsolicited Jose Pimentel, [address] [address] Social History Tobacco Use Types Packs/Day Years [...] Name Priority Date/Time Associated Diagnosis Comments BI US GUIDED BREAST LOCALIZATION AND BIOPSY RIGHT 07/07/2023 11:55 AM EDT documented in this encounter Results * Right US-guided breast localization and biopsy (07/07/2023 11:55 AM EDT) Anatomical Region Laterality Modality Breast Right Ultrasound 07/07/2023 11:5 5 AM EDT Impressions 07/07/2023 12:40 PM EDT STATUS POST ULTRASOUND GUIDED VACUUM-ASSISTED CORE BIOPSIES OF THE RIGHT BREAST. RESULT CODE: NL Impression dictated by: Pablo Lindo M.D.07/07/2023 11:55 AM Tech: Theresa Lara; Radha Ruiz Transcribed By: 07/07/23 1239 Dictated By: Pablo Lindo II, MD 07/07/23 1155 Signed By: 07/10/23 0836 Narrative 07/07/2023 12:40 PM EDT [facility] [address] [place] [address] Ultrasound Report Signed Patient: Sully Leone MR#: [id number] : 1990 Acct:[id number] Age/Sex: 33 / F ADM Date: 07/07/23 Loc: [facility] Room: Type: [facility] Attending Dr: Jose Pimentel DO Ordering Provider: Jose Pimentel DO Date of Service: 07/07/23 US/US breast ndl core biopsy RT: R92.8 ([id number]) MM/MM post biopsy RT w/CAD: POST U/S BX WITH CLIP Copies to: Jose Pimentel DO ADDENDUM Final pathology: Fibrocystic change. [...] 8:00 position were performed using a 12-gauge Proacta vacuum-assisted core biopsy needle under ultrasound guidance. [...] the ultrasound guided core biopsy was performed. Procedure Note Radiology, Radiologist, MD - 07/10/2023 [facility] [address] [place] [address] Ultrasound Report Signed Patient: Sully Leone MMR#: [id number] : 1990Acct:[id number] Age/Sex: 33 / FADM Date: 07/07/23 Loc: [facility] Room:Type: [facility] Attending Dr: Jose Pimentel DO Ordering Provider: Jose Pimentel DO Date of Service: 07/07/23 US/US breast ndl core biopsy RT: R92.8 ([id number]) MM/MM post biopsy RT w/CAD: POST U/S BX WITH CLIP Copies to: Jose Pimentel DO ADDENDUM Final pathology: Fibrocystic change. No evidence of malignancy. This is concordant with imaging findings which were suspicious for afibroadenoma. Recommendation: Six-month ultrasound follow-up of the right breast isrecommended to assess for stability. Impression dictated by: Pablo Lindo M.D.07/10/2023 8:25 AM ULTRASOUND GUIDED VACUUM-ASSISTED HOLOGIC ATEC SYSTEM CORE BIOPSIES OF THERIGHT BREAST: CLINICAL DATA: Right breast mass PROCEDURE: The risks, benefits and alternatives to an ultrasound guidedvacuum-assisted Hologic ATEC system core biopsy procedure were discussed with the patient and writteninformed consent was obtained. Ultrasonographic survey of the upper outer quadrant of the right breastwas performed by clinical lab technologist as well as myself. At the 8:00 position 4 to 5 cm from nipplethere is a hypoechoic 2.0 x 1.0 x 1.7 cm mass with lobulated margins. The patient's overlying skin was anesthetized with 1% lidocaine. Thedeeper soft tissues up to and around the lesion were anesthetized with lidocaine mixed with epinephrine.Following this, multiple core biopsies of the right breast lesion at the 8:00 position wereperformed using a 12-gauge Suros vacuum-assisted core biopsy needle under ultrasound guidance. Multiplecore biopsy specimens were obtained. A metallic post biopsy marker was then placed. Post proceduremammograms were performed. The patient tolerated the procedure well without immediate postproceduralcomplication. POSTPROCEDURE MAMMOGRAMS: Craniocaudal and mediolateral oblique views ofthe right breast were performed using low dose digital technique and compared to the previousultrasound and mammograms dated 06/25/2023. A small metallic marking clip is demonstrated within theupper outer quadrant of the right breast where the ultrasound guided core biopsy was performed. IMPRESSION: STATUS POST ULTRASOUND GUIDED VACUUM-ASSISTED CORE BIOPSIES OF THE RIGHTBREAST. RESULT CODE: NL Impression dictated by: Pablo Lindo M.D.07/07/2023 11:55 AM Tech: Theresa Ruiz Transcribed By: 07/07/23 1239 Dictated By: Pablo Lindo II, MD 07/07/23 1155 Signed By:07/10/23 0836 us Jose Pimentel DO [facility] PROCEDURES Edited Result - Final documented in this encounter Visit Diagnoses Not on filedocumented in this encounter Care Teams Boardmarker Relationship Specialty Start Date End Date Tomasz Glasgow MD [address] [place] [phone] PCP - General Family Medicine 09/24/24 Rell Garcia DO [address] [facility] [address] [place] [address] Referring Physician Obstetrics and Gynecology 06/17/23 09/07/24 documented as of this encounter
--- OUTSIDE RECORDS SUMMARY | 2025-01-31 11:38 | XMS_ITS | Clinical Summary ---
Author Organization [facility] Address [id number] [address] [place] [address] Care Team Providers Care Reciprocating Drill Operator Name Role Phone PeeTomasz greene Alyse DO Primary Care Provider [phone] Allergies Active Allergy Reactions Criticality Noted Date Comments Azithromycin Rash Low 03/31/2012 Other Reaction(s): Itching Ceftriaxone 12/18/2022 Other Reaction(s): Mean Ciprofloxacin Itching,Rash Low 03/31/2012 Dicyclomine Other (See Comments) 11/06/2014 Other Reaction(s): Agitation Ketorolac Itching 11/06/2014 Lorazepam Other (See Comments) 03/06/2021 Metoclopramide Itching,Rash Low 03/31/2012 And anxiety Nitrofurantoin Rash Low 03/31/2012 Nitrofurantoin Monohyd/M-Cryst Itching 12/18/2022 Penicillins Other (See Comments) 03/31/2012 Other Reaction(s): Unknown Asa child Zolpidem Other (See Comments) 12/18/2022 Medications ALPRAZolam (XANAX) 1 mg tablet Take 1 tablet (1 mg total) by mouth every 12 (twelve) hours as needed for anxiety. Active montelukast (SINGULAIR) 10 mg tablet Take 1 tablet (10 mg total) by mouth in the morning. 3 Active phentermine (ADIPEX-P) 37.5 mg tablet Take 1 tablet (37.5 mg total) by mouth every morning before breakfast. 3 Active tiZANidine (ZANAFLEX) 4 mg tablet Take 1 tablet (4 mg total) by mouth 3 (three) times a day. 3 Active sod sulf-pot chloride-mag sulf 1.479-0.188- 0.225 gram tabletIndicati ons:Generalize d abdominal pain,Left upper quadrant abdominal pain Please see instructional sheet given by physicians office. 24 tablet 3 Active Active Problems No known active problems Family History Medical History Relation Name Comments COPD Father Emphysema Father Heart attack Father Heart disease Father Lung cancer Father No Known Problems Mother Relation Name Status Comments Father Alive Mother Alive Social History Tobacco Use Types Packs/Day Years Used Date Smoking Tobacco: Never Smokeless Tobacco: Never Tobacco Cessation:Counseling Given: Not Answered Alcohol Use Standard Drinks/Week Comments Yes 0 (1 standard drink = 0.6 oz pur e alcohol) socially Childcare Answer Date Recorded Childcare Unknown 09/30/2018 Employment Answer Date Recorded Employment Unknown 09/30/2018 Hunger Screening Answer Date Recorded Within the past 12 months we worried whether our food would run out before we got money to buy more. Never True 01/20/2023 Food Insecurity - Inability Not on file 05/2022 Comments Unknown Sex and Gender Information Value Date Recorded Sex Assigned at Not on file Legal Sex Female 12:07 PM EDT Gender Identity Not on file Sexual Orientation Not on file Last Filed Vital Signs Vital Sign Reading Time Taken Comments Blood Pressure 143/90 01/20/2023 12:49 PM EDT Pulse 83 01/20/2023 12:49 PM EDT Temperature - - Respiratory Rate - - Oxygen Saturation - - Inhaled Oxygen Concentration - - Weight 103.5 kg (228 lb 3.2 oz) 023 12:49 PM EDT Height 165.1 cm (5' 5 ) 01/20/2023 12:4 9 PM EDT Body Mass Index 37.97 01/20/2023 12:49 PM EDT Plan of Treatment Health Maintenance Due Date Last Done Comments Depression Screening 2001 Tobacco Screening 2001 DTaP,Tdap and Td Vaccines (1 - Tdap) 02/19/2008 Pap Smear 2010 Adult BMI Screening 01/21/2024 01/20/2023 Influenza Vaccine 12/20/2024 2014, 2011 Colonoscopy 01/23/2028 01/22/2023 Medical Devices Not on file Procedures Procedure Name Priority Date/Time Associated Diagnosis Comments COLONOSCOPY Routine 01/22/2023 Generalized abdominal pain Left upper quadrant abdominal pain from Last 3 Months or Most Recently Relevant to Health Maintenance Results * Colonoscopy (01/22/2023) us Sumeet Haq DO GI PROCEDURE ORDERABLES Fin al Result MANUALLY TRANSCRIBED RESULTS from Last 3 Months or Most Recently Relevant to Health Maintenance Insurance [employer] Care Teams Reciprocating Drill Operator Relationship Specialty Start Date End Date Tomasz Glasgow DO PCP - General Family Medicine 11/26/22
--- NOTE | 2025-01-31 11:42 | ED_ITS ---
HPI HPI - General Adult General Chief complaint: Headache Stated complaint: DIZZINESS, HEADACHE Time Seen by Provider: 01/31/25 11:27 Source: patient Mode of arrival: walk-in Limitations: no limitations History of Present Illness HPI narrative: 34-year-old female presented to the emergency department for headache. It is generalized and she has had it for 2 days. No trauma or fever or stiff neck. She took Tylenol and it seemed to help a little bit but the headache was persistent so she came in here. No localized weakness. She is also concerned she might have a UTI, she has dysuria and frequency. He also reports having some palpitations. Related Data Home Medications ?Medication ?Instructions ?Recorded ?Confirmed tizanidine 4 mg tablet 4 mg PO BEDTIME muscle spast icity 11/17/22 01/31/25 alprazolam 2 mg PO BID PRN anxiety 09/1001/31/25 estradiol 1 mg tablet 1 mg 12/22/24 Previous Rx's ?Medication ?Instructions ?Recorded gtzrqyigfp-vfsclarpocwjg-lshahqvi 1 cap PO Q6H PRN karson n 5 days #20 01/31/25 50 mg-300 mg-40 mg capsule caps (Fioricet) ondansetron 4 mg disintegrating 4 mg PO Q6H PRN nausea and 01/31/25 tablet vomiting #20 tabs Allergies Allergy/AdvReac Type Severity Reaction Status Date / Time methylprednisolone Allergy Severe Hives Verified 01/31/25 11:27 nitrofurantoin (From Allergy Severe itching Verified 01/31/25 11:27 Macrobid) azithromycin (From Zithromax) Allergy Unknown Unknown Verified 01/31/25 11:27 ciprofloxacin (From Cipro) Allergy Unknown Hives Verified 01/31/25 11:27 ketorolac (From Toradol) Allergy Unknown Unknown Verified 01/31/25 11:27 metoclopramide (From Reglan) Allergy Unknown Unknown Verified 01/31/25 11:27 Penicillins Allergy Unknown Unknown Verified 01/31/25 11:27 lorazepam (From Ativan) AdvReac Severe aggression Verified 01/31/25 11:27 zolpidem (From Ambien) AdvReac agitation Verified 01/31/25 11:27 Opioid HPI Opioid Management Most Recent Opioid Data: Last Pain Scale 7 Today, 12:15 Last MAR Pain Assessment Today, 12:15 Review of Systems ROS Narrative A ten point review of systems is negative except as noted above. PFSH PFS Medical History (Updated 01/31/25 @ 14:08 by Rickey Beaver MD) Kidney stones ?N20.0 - Calculus of kidney (ICD-10) POTS (postural orthostatic tachycardia syndrome) ?G90.A - Postural orthostatic tachycardia syndrome [POTS] (ICD-10) Migraines ?G43.909 - Migraine, unspecified, not intractable, without status migrainosus (ICD-10) Seizure ?R56.9 - Unspecified convulsions (ICD-10) History of anxiety ?Z86.59 - Personal history of other mental and behavioral disorders (ICD-10) History of depression ?Z86.59 - Personal history of other mental and behavioral disorders (ICD-10) History of seizure ?Z87.898 - Personal history of other specified conditions (ICD-10) Surgical History (Updated 01/22/23 @ 06:55 by Xochitl Weaver) History of colonoscopy ?Z98.890 - Other specified postprocedural states (ICD-10) History of nephrostomy History of bunionectomy of right great toe ?Z98.890 - Other specified postprocedural states (ICD-10) H/O LEEP ?Z98.890 - Other specified postprocedural states (ICD-10) S/P laparoscopy ?Z98.890 - Other specified postprocedural states (ICD-10) Hx of cystoscopy ?Z98.890 - Other specified postprocedural states (ICD-10) History of hysterectomy ?Z90.710 - Acquired absence of both cervix and uterus (ICD-10) History of tubal ligation ?Z98.51 - Tubal ligation status (ICD-10) Family History (Updated 01/14/23 @ 12:43 by Soraida Blount) Father Family history of COPD (chronic obstructive pulmonary disease) Family history of cancer Family history of myocardial infarction Social History (Updated 01/22/23 @ 06:57 by Xochitl Weaver) Within the past year, how often did you have a drink containing alcohol: monthly or less Smoking status: Never smoker Non-prescribed substance use: denies use Highest level of school completed/degree received: some college, no degree Little interest or pleasure in doing things: not at all Feeling down, depressed, or hopeless: not at all Exam Narrative Exam Narrative: Nurses note and vital signs reviewed and patient is not hypoxic. General:The patient appears uncomfortable. Skin:Warm, dry, no pallor noted.There is no rash noted. Head:Normocephalic, atraumatic eye: Neck supple, no nuchal rigidity Eye: Normal conjunctiva, no drainage, EOMI. PERRL Ears, Nose, Mouth, and Throat: oral mucosa is moist. Nares patent. Cardiovascular:Regular Rate and Rhythm Respiratory:Patient is in no distress, no accessory muscle use, lungs are clear to auscultation, no wheezing, rales or rhonchi Back:non-tender GI: Soft and nontender Musculoskeletal: The patient has no evidence of calf tenderness, no pitting edema, symmetrical pulses noted bilaterally Neurological:A&O, normal speech [place] upper and lower extremity strength 5 out of 5 and symmetric Psychiatric:Cooperative Constitutional Vital Signs, click to edit/add: Last Vital Signs Temp 98.6 F 01/31/25 11:19 Pulse 77 01/31/25 11:50 Resp 20 01/31/25 11:50 BP 112/75 01/31/25 13:54 Pulse Ox 99 01/31/25 14:00 O2 Del Method Room Air 01/31/25 11:19 Course Vital Signs Vital signs: Vital Signs Temperature 98.6 F 01/31/25 11:19 Pulse Rate 93 H 01/31/25 11:19 Respiratory Rate 22 H 01/31/25 11:19 Blood Pressure 126/80 01/31/25 11:19 Pulse Oximetry 99 01/31/25 11:19 Oxygen Delivery Method Room Air 01/31/25 11:19 Temperature 98.6 F 01/31/25 11:19 Pulse Rate 77 01/31/25 11:50 Respiratory Rate 20 01/31/25 11:50 Blood Pressure 112/75 01/31/25 13:54 Pulse Oximetry 99 01/31/25 14:00 Oxygen Delivery Method Room Air 01/31/25 11:19 Medical Decision Making [facility] Narrative Medical decision making narrative: For workup including CT head is negative. She was given IV morphine and Zofran and is discharged home with prescriptions for Fioricet and Zofran. I have no clinical suspicion of meningitis. Urinalysis does not show any clear UTI and culture is pending. Treatment diagnosis and follow-up were discussed with the patient. Differential Diagnosis Differential Diagnosis: Headache, sinusitis, intracranial hemorrhage Lab Data Lab results reviewed: Yes I reviewed the patient's lab results Labs: Lab Results 01/31/25 01/31/25 Range/Units 11:54 12:20 WBC 6.1 (4.0-11.0) 10^3/uL RBC 4.23 (4.20-5.40) 10^6/uL Hgb 13.5 (12.0-16.0) g/dL Hct 39.7 (36.0-48.0) % MCV 93.9 (81.0-99.0) fL MCH 31.9 (26.7-34.0) pg MCHC 34.0 (29.9-35.2) g/dL RDW 12.2 (11.0-15.0) % Plt Count 188 (150-450) 10^3/uL MPV 10.7 (9.5-13.5) fL Neut % (Auto) 43.5 (43.0-75.0) % Lymph % (Auto) 43.5 (20.5-60.0) % [place] % (Auto) 9.6 (1.7-12.0) % Eos % (Auto) 2.6 (0.9-7.0) % Baso % (Auto) 0.5 (0.2-2.0) % Neut # (Auto) 2.7 (1.4-6.5) 10^3/uL Lymph # (Auto) 2.7 (1.2-3.8) 10^3/uL [place] # (Auto) 0.6 (0.3-0.8) 10^3/uL Eos # (Auto) 0.2 (0.0-0.7) 10^3/uL Baso # (Auto) 0.0 (0.0-0.1) 10^3/uL Abs Immat Gran (auto) 0.02 (0.00-0.03) 10^3/uL Imm/Tot Granulo (auto) 0.3 (0.0-0.5) % Sodium 140 (136-145) mmol/L Potassium 4.2 (3.5-5.1) mmol/L Chloride 107 (98-107) mmol/L Carbon Dioxide 26.2 (21.0-32.0) mmol/L Anion Gap 11.0 BUN 10.0 (7.0-18.0) mg/dL Creatinine 0.74 (0.55-1.02) mg/dL Est GFR ( Amer) >60 (>=60 mL/min/1.73m^2) Est GFR (Non-Af Amer) >60 (>=60 mL/min/1.73m^2) BUN/Creatinine Ratio 13.5 Glucose 87 (74-106) mg/dL Calcium 8.4 L (8.5-10.1) mg/dL Urine Color Lt. yellow (YELLOW) Urine Clarity Clear (CLEAR) Urine pH 7.0 (5.0-9.0) Ur Specific [place] 1.010 (1.005-1.025) Urine Protein Negative (NEG/TRACE) mg/dL Urine Glucose (UA) Negative (NEGATIVE) mg/dL Urine Ketones Negative (NEGATIVE) mg/dL Urine Occult Blood Negative (NEGATIVE) Urine Nitrite Negative (NEGATIVE) Urine Bilirubin Negative (NEGATIVE) Urine Urobilinogen 0.2 (0.2-1.0) EU/dL Ur Leukocyte Esterase Negative (NEGATIVE) Urine RBC None seen (0-2) #/HPF Urine WBC None seen (NONE SEEN) #/HPF Ur Squamous Epith Cells Moderate A (NONE/RARE) #/LPF Urine Crystals None seen (None Seen) #/HPF Urine Bacteria Small A (NONE SEEN) #/HPF Urine Casts None seen (NONE SEEN) #/LPF Urine Mucus Trace A (NONE SEEN) Ur Culture Indicated? [place] [place] CT scan - head: Radiologist's impression: ITS Impressions Head CT 01/31/25 13:28 IMPRESSION: NO ACUTE INTRACRANIAL ABNORMALITY. Impression dictated by: Luis Turner Jr., D.O. 01/31/2025 1:59 PM Dictation Location: [place] [address] Electronically authenticated by: [id number] Y Date: 01/31/2025 13:59 ECG Data Attestation: I personally reviewed and interpreted this ECG as follows: (EKG on my interpretation shows normal sinus rhythm with rate of 87 and no acute change. PVCs present.) Discharge Plan Discharge Chief Complaint: Headache Clinical Impression: Headache Patient Disposition: Home, Self-Care Time of Disposition Decision: 14:08 Condition: Good Mode of Transportation: Private Vehicle Prescriptions / Home Meds: New hpyyrfdevz-hkfffayhcucro-rgon [Fioricet] 50-300-40 mg capsule 1 cap PO Q6H PRN (Reason: pain) 5 Days Qty: 20 0RF ondansetron 4 mg tablet,disintegrating 4 mg PO Q6H PRN (Reason: nausea and vomiting) Qty: 20 0RF No Action tizanidine 4 mg tablet 4 mg PO BEDTIME alprazolam [Xanax] 2 mg PO BID PRN (Reason: anxiety) estradiol 1 mg tablet 1 mg Print Language: Maori Instructions: Acute Headache (ED) Referrals: MARIO GUAMAN [Primary Care Provider, Family Practice] - 1 week
--- OUTSIDE RECORDS SUMMARY | 2025-01-31 11:43 | XMS_ITS | CCD ---
Author Organization [facility] Care Team Providers Care Slasher Tender Helper Name Role Phone MARIO GLASGOW Primary Care [...] MORIS GUERRERO Attending Unavailable ROSAURA .SIVAN Consulting Unavailani e MORIS GUERRERO Consulting Unavailable PEE, DR MARIO Cullen Primary Care Unavailable SUKHDEV, MORIS Admitting Unavailable MORIS GUERRERO Attending Unavailable MORIS GUERRERO Consulting Unavailable ROC ARNOLD Consulting Unavailable PEE, DR MARIO Cullen Primary Care Unavailable SUKHDEV, MORIS Admitting Unavailable MORIS GUERRERO Attending Unavailable MORIS GUERRERO Consulting Unavailable PEE, DR MARIO Cullen Primary Care Unavailable LORI Ng, QUINTIN Admitting Unavailable LORI Ng, QUINTIN Attending Unavailable Richelle Bush Consulting Unavailable QUINTIN SHI Consulting Unavailable PEE, DR MARIO Cullen Primary Care Unavailable SUKHDEV, MORIS Admitting Unavailable MORIS GUERRERO Attending Unavailable PHYLICIA ALFRED Consulting Unavailable SUKHDEV, MORIS Consulting Unavailable JASS GRISSOM Consulting Unavailable PEE, DR MARIO Cullen Primary Care Unavailable SUKHDEV, MORIS Admitting Unavailable MORIS GUERRERO Attending Unavailable ROSAURA .SIVAN Consulting Unavailabl e MORIS GUERRERO Consulting Unavailable LIZZIE YU Consulting Unavailable Erin Chavez Attending Unavailable DO Sonam Montoya Attending Unavailable Pee, DO Mario MHernandez Primary Care Provider KIKE Alvarez Emergency Provider Pee, DO Mario Selene Primary Care Provider KIKE Alvarez Emergency Provider DO Lucero Belle Attending Provider [phone] Em LASSITER, Keli Cervantes Primary Care Provider [phone] Erin Chavez MD Unavailable Em LASSITER, Keli Cervantes Primary Care Provider MORIS GUERRERO Referring Unavailable PRINCE HILTON Attending Unavailable PRINCE HILTON Referring Unavailable Pee, DO Mario M. Attending Provider Mario Glasgow DO Primary Care Provider Bhanu Alvarez Admitting Unavailable Bhanu Alvarez Attending Unavailable Pee, Mario MHernandez Primary Care Unavailable Lucero Belle Attending Unavailable Pee, Mario MHernandez Primary Care Unavailable Lucero Belle Admitting Unavailable Pee, Mario MHernandez Admitting Unavailable Pee, Mario MHernandez Attending Unavailable Pee, DO Mario MHernandez Attending Provider [phone] Pee CUADRA [place] Primary Care Provider Jen Garcia DO Unavailable Brandon Alan MD Primary Care Provider BRANDON ALAN Primary Care Unavailabl e MARIO GLASGOW Primary Care Unavailable PRINCE MON Referring Unavailable Pee CUADRA, [place] Primary Care Provider [phone] Pee CUADRA, [place] Primary Care Provider [phone] RICHELLE MORATAYA Attending Unavailable PEE, MARIO Referring Unavailable LUCERO BELLE Attending Unavailable JEN GARCIA Attending Unavailable VASU HILTON Attending Unavailable JENIFER SHEPPARD Attending Unavailable JENIFER SHEPPARD Referring Unavailable MANUEL, JENIFER Arenas Referring Unavailable VASU HILTON Attending Unavailable Pee MD [place] Primary Care Provider [phone] Pee Mario HERNANDEZ Primary Care Provider Pee Mario HERNANDEZ Attending Provider PEE, [facility] Primary [facility] Unavailable SELF Referring Unavailable TEGAN NICHOLS Attending Unavailable PRINCE MON Referring Unavailable PEE, [facility] Care Unavailable PRINCE MON Referring Unavailable PEE, [facility] Care Unavailable PEE, [facility] Unavailable PRINCE MON Attending Unavailable PEE, [facility] Primary Care Unavailable LEOBARDO ANDERSON Attending PRINCE Schmidt Referring Unavailable PEE, [facility] Primary [facility] Unavailable TIFFANY, JACKIE ROBINS Admitting Unavailabl e CHICHURA, JACKIE ROBINS Attending Unavailabl e SPETTKELI ESCAMILLA Primary Care Unavailable PRINCE MON Attending Unavailable PEE, [facility] Care Unavailable PRINCE MON Attending Unavailable PEE, [facility] Primary Care Unavailable DINORAHHURA, JACKIE ROBINS Referring Unavailabl e PEE, [facility] Primary Care Unavailable DINORAHHURA, JACKIE ROBINS Referring Unavailabl e PEE, [facility] Care Unavailable PEE, [facility] Primary Care Unavailable CHICHURA, JACKIE ROBINS Referring Unavailabl e PEE, [facility] Primary [facility] Unavailable PRINCE MON Referring Unavailable PEE, [facility] Primary [facility] Unavailable PRINCE MON Attending Unavailable PEE, [facility] Primary [facility] Unavailable JENNIFER RASHID Referring Unavailable Allergies Allergy Classification Reported Allergen(s) Allergy Type Date of Onset Reaction(s) Facility (20 sources) Azithromycin; Translations: [azithromycin] Drug Allergy 03-31-20 12 Unknown, Rash [facility] Other (16 sources) cefTRIAXone; Translations: [ceftriaxone] Drug Allergy 12-19-19 23 Mean (qualifier value) [facility] (20 sources) Ciprofloxacin; Translations: [ciprofloxacin] Drug Allergy 03-31-20 12 Unknown, Itching, Rash [facility] Other (20 sources) Dicyclomine; Translations: [dicyclomine] Drug Allergy 03-06-20 Unknown, Other [facility] (20 sources) Ketorolac; Translations: [ketorolac] Drug Allergy 03-06-20 Unknown [facility] Other Comment on above: patients it makes he r mean (20 sources) Metoclopramide; Translations: [metoclopramide] Drug Allergy 03-31-20 12 Unknown, Itching, Rash [facility] Other Comment on above: diarrhea (20 sources) Morphine; Translations: [morphine] Drug Allergy 06-03-19 24 Unknown [facility] Other Comment on above: causes hives (20 sources) NITROFURANTOIN, MACROCRYSTALS / Nitrofurantoin, Monohydrate; Translations: [nitrofurantoin] Drug Allergy Itching, Unknown [facility] Other (20 sources) Penicillin; Translations: [penicillin] Drug Allergy Unknown (qualifier value) [facility] Other (16 sources) zolpidem; Translations: [zolpidem] Drug Allergy 12-19-19 23 Unknown [facility] (20 sources) diphenhydrAMINE Drug Allergy IV Hives [facility] Other (20 sources) LORazepam; Translations: [LORAZEPAM] Drug Allergy 03-06-20 Unknown, Other (See Comments) [facility] Comment on above: patient states it ma kes her violent (20 sources) Penicillin V Drug Allergy Unknown [facility] Other (10 sources) diphenhydrAMINE Drug Allergy IV Hives [facility] Other (20 sources) DULoxetine Drug Allergy 06-03-19 24 worsen depression [facility] (20 sources) Nitrofurantoin; Translations: [nitrofurantoin] Drug Allergy 03-31-20 12 Unknown, Rash, Hives, Itching [facility] (20 sources) Penicillins; Translations: [Penicillins] Allergy to substance 03-31-20 12 Unknown, Other (See Comments) [facility] (1 source) Azithromycin Drug Allergy 09-17-19 13 [facility] (1 source) Ciprofloxacin Drug Allergy 09-17-19 13 [facility] (1 source) Dicyclomine Drug Allergy 07-20-19 15 [facility] (1 source) Iothalamate Drug Allergy 09-17-19 13 [facility] (1 source) Ketorolac Drug Allergy 03-11-20 13 [facility] (1 source) LORazepam Drug Allergy 09-10-19 16 [facility] (1 source) Nitrofurantoin Drug Allergy 09-17-19 13 [facility] (1 source) LORazepam; Translations: [Ativan] Drug Allergy [facility] Rep[facility] (20 sources) methylPREDNISolone ; Translations: [methylprednisolon e] Drug Allergy 12-26-19 Other: See Comments, Rash, Unknown [facility] (20 sources) predniSONE; Translations: [PREDNISONE] Drug Allergy 12-26-19 Intolerance [facility] (1 source) Metoclopramide; Translations: [METOCLOPRAMIDE HCL] Drug Allergy 12-17-19 [facility] (1 source) NITROFURANTOIN MONOHYD/M-CRYST; Translations: [NITROFURANTOIN MONOHYD/M-CRYST] Propensity to adverse reactions to drug (disorder) 12-17-19 [facility] (1 source) Azithromycin Drug Allergy 10-08-19 24 [facility] (1 source) Ciprofloxacin Drug Allergy 10-08-19 [facility] (1 source) Dicyclomine Drug Allergy 10-08-19 [facility] (1 source) DULoxetine Drug Allergy 10-08-19 [facility] (1 source) Ketorolac Drug Allergy 10-08-19 [facility] (1 source) LORazepam Drug Allergy 10-08-19 [facility] (1 source) Metoclopramide Drug Allergy 10-08-19 [facility] (1 source) Morphine Drug Allergy 06-03-19 [facility] (13 sources) Dicyclomine Drug Allergy 11-07-19 [facility] (13 sources) HYDROcodone Drug Allergy 11-07-19 [facility] (12 sources) Ketorolac Propensity to adverse reactions 11-07-19 Itching, Unknown [facility] (12 sources) Lorazepam Propensity to adverse reactions 03-06-20 Unknown [facility] (12 sources) Nitrofurantoin Drug Allergy 06-17-19 Unknown [facility] (1 source) Ketorolac Drug Allergy 11-07-19 [facility] Medications Current Medications Medication Drug Class(es) Dates Sig (Normalized) Sig (Original) acetaminophen 325 mg oral tablet (20 sources) Start: 01-08-2024 take 2 tablets by mouth every six hours as needed acetaminophen (TYLENOL) 325 mg tablet Take 2 tablets by mouth every 6 hours as needed (for pain.). 20 tablet 01/08/2024 Active Acetaminophen / HYDROcodone (14 sources) Opioid Agonist Start: 05-16-2021 Chaplin 5/325 Tab Oral, q6hr, Refill(s) 0 Start [...] daily Active estradiol 1 mg oral tablet (18 sources) Estrogen Start: 06-02-19 End: 06-02-19 take 1 tablet by mouth once daily estradiol (ESTRACE) 1 mg tablet Take 1 mg by mouth once daily. 06/02/2024 06/02/2025 Active Extra Strength Acetaminophen (15 sources) Extra Strength Acetaminophen Active fluconazole 100 mg oral tablet (2 sources) Azole Antifungal take 1 tablet by mouth three times weekly Diflucan 100 MG 1 tablet Orally 3 times per week for 7 days Active 24 hr mirabegron 25 mg extended release oral tablet (3 sources) beta3-Adrenergic Agonist Start: 05-21-19 22 take 1 tablet by mouth once daily Myrbetriq 25 mg oral tablet, extended release 25 mg = 1 tab(s), Oral, Daily, # 90 tab(s), Refills(s) 3, Bladder problems, Pharmacy: [facility]/pharmacy #[id number], 165, cm, 05/18/21 11:56:00 EST, [...] sources) Sympathomimetic Amine Anorectic Start: 09-17-2022 End: 08-28-2024 take 1 tablet by mouth once daily Phentermine 37.5 mg tablet Active 37.5 MG PO Daily August 28, 2024 3:17pm Complies with drug therapy Start: 12-25-2021 take 1 tablet by karl [...] pain, # 12 tab(s), Refills(s) 0, Pharmacy: [facility]/pharmacy #[id number], 165, cm, 11/22/22 19:18:00 EDT, Height/Length Dosing, 103, kg, 11/22/22 19:18:00 EDT, Weight Dosing Start Date: 11/23/22 Status: Ordered Start: 05-02-2022 End: 06-03-2023 take 1 tablet by mouth every four hours as needed for pain Tramadol 50 mg Tablet Discontinued 50 MG PO Q4H as needed for Pain scale 1 - 4 20 7 May 02, 2022 1:00am June 03, 2023 2:33pm [...] Active Start: 06-10-2022 take 1 tablet by kral th every twelve hours Xanax 2 MG [...] 2023 11:26am take 1 tablet by karl th three times daily as needed for sleep [...] procedure, # 2 tab(s), Refills(s) 0, Pharmacy: [facility]/pharmacy #[id number], 165, cm, 05/18/21 11:56:00 EST, [...] every week Vitamin D (Ergocalciferol) 1.25 MG (55143 UT) 1 capsule Orally weekly for 30 [...] by Patient) take 1 capsule by mo [facility] three times daily gabapentin (NEURONTIN) [...] 04, 2017 3:00am take 1 tablet by [facility] every six hours as needed for pain [...] times daily as needed for urinary retention 10 September 08, 2017 12:00am November 21, 2017 7:33pm administer with a full glass of water after each meal sulfamethoxazole 800 mg / trimethoprim 160 mg oral tablet (20 sources) Dihydrofolate Reductase Inhibitor Antibacterial, Sulfonamide Antimicrobial Start: 12-26-2023 End: 02-23-2024 take 1 tablet by mouth every twelve hours Sulfamethoxazole-T rimethoprim (Bactrim Ds) 800-160 mg tablet Discontinued 1 TAB PO Every 12 hours 01 11December 26, 2023 12:00am February 23, 2024 3:47pm [...] needed for back spasms June 03, 2023 12:53pm June 03, 2023 [...] [STRESS NOT ELSEWHERE CLASSIFIED] Onset: 08-15-2022 Episodic Allergic reactions (3 sources) Erythema ab [...] Other shelter (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 therapy; Translations: [OTH LONG-TERM CURRENT DRUG THERAPY] Onset: 08-15-2022 Episodic Other [...] [Unspecified convulsions] Onset: 06-03-2023 Unclassified (1 source) Z68.38 - Body mass [...] (clinical)] Onset: 04-29-2022 Resolved: 06-17-2023 06-17-2023 Chronic Epilepsy; convulsions (20 sources) Seizure; Translations: [Neurological finding] Onset: 03-06-2021 06-06-2016 Episodic Genitourinary symptoms and ill-defined conditions (1 source) Dysuria Onset: 05-08-2021 Resolved: 05-08-2021 Episodic Headache; including migraine (20 sources) Headache; Translations: [Headache] Onset: 03-07-2021 06-22-2017 Episodic Lymphadenitis (4 sources) Axillary lymphadenopathy; Translations: [...] 09-12-2023 Episodic Other and unspecified benign neoplasm (9 sources) Benign neoplasm of right breast; Translations: [...] Translations: [Family history of breast cancer] Onset: 05-29-2024 Episodic Residual codes; unclassified (1 source) Other specified postprocedural states; Translations: [Post-operative state] Onset: 01-19-2024 Episodic Unclassified (1 source) kidney infections( Confirmed ) 07-21-2012 Unclassified (1 source) Conjunctivitis 372.30 Onset: 10-23-2021 Resolved: 10-23-2021 Unclassified (2 sources) kidney infections 07-21-2012 Unclassified (1 source) Low back pain, unspecified; Translations: [Low back pain, unspecified] Onset: 12-17-2023 Results Test Name Value Interpretation Reference Range Facility [facility] 01-03-2025 [facility] Telephone ([facility]) ----- ZOESULLY Alyse ([id number]) 1990 F Date Time Provider Department 01/03/25 PRINCE MON During your visit today, we recorded the following information about you: Adriana Hurley RN 01/03/2025 12:45 PM Signed Patient scheduled to see SIVAN Chavez in the breast center for her 6 month follow up with diagnostic imaging prior for her left breast on 01/13. It was noted via a mychart appointment request the patient commented new lump . Contacted the patient to determine which side the new breast lump is located. Patient stated the new lump is noted on her right breast. Will have a bilateral diagnostic imaging order placed. Allergies As of Date: 01/03/2025 Noted Allergy Reaction CIPROFLOXACIN 03/06/2021 16 - [...] RT(R) - Fully Assessed Reason for Visit: Appointment [186] Primary Visit Diagnosis:Nipple discharge [N64.52] Other Visit Diagnosis:Mass of right breast, unspecified quadrant [N63.10] Order(s):[facility] DIAGNOSTIC BILATERAL [[id number]] Order #: [id number] FUTURE Prescriptions as of 01/03/2025 - estradiol (ESTRACE) 1 mg tablet Take [...] as needed. 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] 12/26/2023 Difficult intravenous access [Z78.9] 01/06/2024 Obesity (BMI 30-39.9) [E66.9] 01/06/2024 POTS (postural orthostatic tachycardia syndrome*01/06/2024 Rash [R21] 01/06/2024 Encounter Status:Closed by ADRIANA HURLEY on 01/03/25 Normal [facility] MR HIP ARTHROGRAM RIGHTon MR HIP ARTHROGRAM [...] avulsion superior acetabulum concerning for labral injury [facility] Radiology Study observation (narrative) [facility] ----- ZOESULLY M ([id number]) 1990 F Date Time Provider Department 07/09/24 JOBY FRIEDMAN [facility] During your visit today, we recorded the following information about you: Rod Yaya 07/09/2024 4:36 PM Signed Patient stated she missed a call from Dr. Friedman office not to long ago. I saw someone called her regarding her results pathology, Lou Miller. Patient said she sees Prince Mon and wanted to speak with her about her results. [phone]. Prince Mon PA-C 07/09/2024 4:48 PM Signed [...] Assessed Primary Visit Diagnosis:Nipple discharge [N64.52] Order(s):SAJI Hogue HARVEY LEFT [[id number]] Order #: [id number] FUTURE BREAST LTD LEFT [[id number]] Order #: [id number] FUTURE Prescriptions as of 07/09/2024 - estradiol [...] Encounter Status:Closed by [facility] SULLY ENRIQUEZ ([id number]) 1990 F Date Time Provider Department 07/09/24 [...] Unknown Date Reviewed: 05/20/2024 Reviewed by: Charly Galaviz, RT(R) - Fully Assessed Reason for Visit: [...] Status:Closed by LOU MILLER on 07/09/24 Normal [facility] DBT Breast - left diagnostic for implanton [...] A Perla M.D. Electronically signed on: 07/07/2024 As400 Consultant: BISHOP Blair Date/Time: Jul 07 2024 8:18A Dictated by : JORGE A PERLA MD This examination was interpreted and the report reviewed and electronically signed by: JORGE A PERLA MD on Jul 07 2024 8:30AM [facility] * * *Final Report* * * DATE OF EXAM: Jul 07 2024 8:20AM BILL 0628 - [facility] DIAG W HARVEY LT / PROCEDURE REASON: R92.8-Abnormal finding on breast imaging * * * * Physician Interpretation * * * * [place] [address] #[id number] - [facility] US BIOPSY BREAST LT #[id number] - [facility] DIAG W HARVEY LT HISTORY: 34 year [...] heterogeneously dense, which may obscure small masses. [facility] Provider, [facility] Stefani [facility] - 07/07/2024 * * *Final Report* * * DATE OF EXAM: Jul 07 2024 8:20AM BILL 0628 - [facility] DIAG W HARVEY LT / PROCEDURE REASON: R92.8-Abnormal finding on breast imaging * * * * Physician Interpretation * * * * [place] [address] #[id number] - [facility] US BIOPSY BREAST LT #[id number] - [facility] DIAG W HARVEY LT HISTORY: [...] A Perla M.D. Electronically signed on: 07/07/2024 As400 Consultant: BISHOP Transcridalton Date/Time: Jul 07 2024 8:18A Dictated by : JORGE A PERLA MD This examination was interpreted and the report reviewed and electronically signed by: JORGE A PERLA MD on Jul 07 2024 8:30AM [facility] Radiology Study observation (narrative) [facility] SAJI ALFARO LTon 025 SAJI ALFARO LT * * *Final Report* * * * * * SEE BOTTOM OF REPORT FOR ADDENDED TEXT * * * DATE OF EXAM: Jul 07 2024 8:20AM BILL 0628 - SA[facility]I ALFARO LT / PROCEDURE REASON: R92.8-Abnormal finding on breast imaging * * * * Physician Interpretation * * * * [facility] [address] [place] [address] - - - - - - - [...] - - - - - - - #[id number] - [facility] US BIOPSY BREAST LT #[id number] - [facility] MARCO Hogue HARVEY LT HISTORY: 34 year old patient [...] A Perla M.D. Electronically signed on: 07/09/2024 As400 Consultant: BISHOP Transcribe Date/Time: Jul 07 2024 8:18A Dictated by : JORGE A PERLA MD This examination was interpreted and the report reviewed and electronically signed by: JORGE A PERLA MD on Jul 07 2024 8:30AM EST This document has been addended by: JORGE A PERLA MD on Jul 09 2024 2:28PM EST [id number] Normal [facility] US BIOPSY BREAST LTon [facility] US BIOPSY BREAST LT * * *Final Repor t* * * * * * SEE BOTTOM OF REPORT FOR ADDENDED TEXT * * * DATE OF EXAM: Jul 07 2024 8:04AM AGUSTÍN 0597 - [facility] US BIOPSY BREAST LT / PROCEDURE REASON: R92.8-Abnormal finding on breast imaging * * * * Physician Interpretation * * * * [facility] [address] [id number] - - - - - - - [...] - - - - - - - #[id number] - [facility] US BIOPSY BREAST LT #[id number] - [facility] MARCO ALFARO LT HISTORY: 34 [...] A Perla M.D. Electronically signed on: 07/09/2024 As400 Consultant: BISHOP Transcribe Date/Time: Jul 07 2024 7:29A Dictated by : JORGE A PERLA MD This examination was interpreted and the report reviewed and electronically signed by: JORGE A PERLA MD on Jul 07 2024 8:30AM EST This document has been addended by: JORGE A PERLA MD on Jul 09 2024 2:28PM EST [id number] [facility] No Panel InformationOrdered By: Ccf Provider on 07-07-2024 [facility] Pathology biopsy report David (Tiss)on 07-07-2024 AP DISCLAIMER [facility] Comment on above: Order Comment: Speci men Type: TISSUE SPECIMEN Ordering Facility: [facility] Address: [address] [place] [address] Result Comment: Loni Alfonso Test (LDT) Disclaimer: Performance characteristics of immunohistochemical, immunofluorescent, and chromogenic in-situ hybridization tests have been determined by the performing laboratory within [facility]'s [facility] Pathology and Laboratory Medicine Department ([facility], [facility], [facility], [facility], [facility], [facility], or [facility]) in a manner consistent with CLIA requirements. One or more of these tests may not have been cleared or approved by the FDA. [facility] is regulated under CLIA as qualified to perform high-complexity testing. These tests are used for clinical purposes. These should not be regarded as investigational or for research. Positive and negative controls stain appropriately. Performed By: #### 6 6121-5 #### [facility] CLIA [id number] [address] [place] [address] [place] CASE REPORT [facility] Comment on above: Order Comment: Speci men Type: TISSUE SPECIMEN Ordering Facility: [facility] Address: [address] [place] [address] Result Comment: Surg ical Pathology Report Case: [id number] Authorizing Provider: Jorge A Perla MD Collected: 07/07/2024 07:56 AM Ordering Location: Mammography Received: 07/07/2024 08:45 AM Pathologist: Abeba Kaminski MD Specimen: Breast, Left, Core Biopsy, 12:00 subareolar; Hydromark Butterfly Performed By: #### 6 6121-5 #### [facility] CLIA [id number] [address] [place] [address] DIAGNOSIS COMMENT Multiple deeper leve ls were examined. Normal [facility] Comment on above: Order Comment: Speci men Type: TISSUE SPECIMEN Ordering Facility: [facility] Address: [address] [place] [address] Performed By: #### 6 6121-5 #### [facility] CLIA [id number] [address] [place] [address] FINAL DIAGNOSIS [facility] Comment on above: Order Comment: Speci men Type: TISSUE SPECIMEN Ordering Facility: [facility] Address: [address] [place] [address] Result Comment: A: B reast, left, 12:00, subareolar, biopsy with HydroMARK butterfly clip placement: - Benign subareolar mammary tissue with microcysts and scant microcalcifications. at 1211 EDT Performed By: #### 6 6121-5 #### [facility] CLIA [id number] [address] [place] [address] [place] FINAL PERFORMING LAB Normal [facility] Comment on above: Order Comment: Speci men Type: TISSUE SPECIMEN Ordering Facility: [facility] Address: [address] [place] [address] Result Comment: Diag nostic interpretation performed at: [facility], [address] [place] [address] CLIA# [id number] Associate Program Manager: Rory Moreno MD Performed By: #### 6 6121-5 #### [facility] CLIA [id number] [address] [place] [address] [place] GROSS DESCRIPTION [facility] Comment on above: Order Comment: Speci men Type: TISSUE SPECIMEN Ordering Facility: [facility] Address: [address] [place] [address] Result Comment: A. Vi reast, Left, Core Biopsy Received in formalin labeled as left breast are multiple segments of cylindrical tissue aggregating to 0.6 x 0.4 x 0.2 cm, vazquez-pink and of a soft consistency. The specimen was removed from the patient at 07:56 on 07/07/2024. On the same day, the specimen was placed in formalin at 07:56. Totally submitted in formalin in one cassette. GMR July 07, 2024 2:11 PM Gross examination performed at [facility], [address] [place] [address] Performed By: #### 6 6121-5 #### [facility] CLIA [id number] [address] [place] [address] [place] Guidance for [...] A Perla M.D. Electronically signed on: 07/07/2024 As400 Consultant: BISHOP Transcridalton Date/Time: Jul 07 2024 7:29A Dictated by : JORGE A PERLA MD This examination was interpreted and the report reviewed and electronically signed by: JORGE A PERLA MD on Jul 07 2024 8:30AM [facility] * * *Final Report* * * DATE OF EXAM: Jul 07 2024 8:04AM [facility] 0597 - [facility] US BIOPSY BREAST LT / PROCEDURE REASON: R92.8-Abnormal finding on breast imaging * * * * Physician Interpretation * * * * [place] [address] #[id number] - SAJI US BIOPSY BREAST LT #[id number] - [facility] MARCO ALFARO LT HISTORY: 34 [...] heterogeneously dense, which may obscure small masses. [facility] Provider, Alexa Ko [place] - 07/07/2024 * * *Final Report* * * DATE OF EXAM: Jul 07 2024 8:04AM [facility] 0597 - [facility] US BIOPSY BREAST LT / PROCEDURE REASON: R92.8-Abnormal finding on breast imaging * * * * Physician Interpretation * * * * [place] [address] #[id number] - [facility] US BIOPSY BREAST LT #[id number] - [facility] MARCO Hogue HARVEY HISTORY: 34 year old patient presents for [...] A Perla M.D. Electronically signed on: 07/07/2024 As400 Consultant: BISHOP Trujilloridalton Date/Time: Jul 07 2024 7:29A Dictated by : JORGE A PERLA MD This examination was interpreted and the report reviewed and electronically signed by: JORGE A PERLA MD on Jul 07 2024 8:30AM EST [facility] Radiology Study observation (narrative) [facility] Kt 06-28-2024 CNPN Telephone ([facility]ANNER) ----- SULLY ENRIQUEZ ([id number]) 1990 F Date Time Provider Department 06/28/24 [...] Fully Assessed Reason for Visit: Patient Question [4439] Prescriptions as of 06/28/2024 - estradiol (ESTRACE) [...] Encounter Status:Closed by PRINCE MON on 06/28/24 Normal [facility] CNOVon 06-25-2024 CNOV Office Visit (SLOANCRCA ) ----- ZOEOCHOASULLY M ([id number]) 1990 F Date Time Provider Department 06/25/24 [...] NO Does patient want to see a Ore Storage Drier? No (yes to any of above refer [...] Sow Christine, PA-C 06/25/2024 4:11 PM Signed [facility] [place] Department of Breast Surgical Oncology [facility] FOLLOW UP HPI: Sully M Zoe is a 34 year old female with [...] the interval, she also saw her local INSPECTOR WATCH TRAIN and was started on Estrace. She has not yet noticed any change in symptoms. Continues to report bilateral diffuse breast pain. She removed bilateral nipple piercings a couple weeks ago. Genetic testing completed 05/31/2024. Multi-Cancer panel through [employer] was negative for a pathogenic variant. Denies other breast masses, skin changes, nipple discharge, or nipple retraction. PERSONAL BREAST HISTORY: Past breast history (prior to this encou (more content not included)... Normal [facility] DBT Breast - bilateral diagn ostic for [...] Lea Almanzar M.D. Electronically signed on: 06/25/2024 As400 Consultant: BISHOP Transcribe Date/Time: Jun 25 2024 1:29P Dictated by : LEA ALMANZAR MD This examination was interpreted and the report reviewed and electronically signed by: LEA ALMANZAR MD on Jun 25 2024 4:12PM [facility] DIVISION OF RADIOLOGY * * *Final Report* * * DATE OF EXAM: Jun 25 2024 1:43PM [facility] 0627 - SAJI DIAG W HARVEY SAADIA / PROCEDURE REASON: multiple diagnoses * * * * Physician Interpretation * * * * RESULT: [place] [address] #[id number] - SAJI DIAG W HARVEY SAADIA #[id number] - [facility] US BREAST LTD #[id number] - [facility] BREAST LTD RT HISTORY: 34 year-old [...] the left breast. DIVISION OF RADIOLOGY Provider, [facility] - 06/25/2024 * * *Final Report* * * DATE OF EXAM: Jun 25 2024 1:43PM [facility] 0627 - [facility] MARCO ALFARO SAADIA / PROCEDURE REASON: multiple diagnoses * * * * Physician Interpretation * * * * RESULT: [address] [place] [address] #[id number] - [facility] MARCO Hogue HARVEY SAADIA #[id number] - [facility] US BREAST LTD #[id number] - [facility] US BREAST LTD RT HISTORY: [...] ultrasound of the indicated area was performed. Cma scale images were saved. ULTRASOUND FINDINGS: Finding [...] breast tissue. I (more content not included)... [facility] SAJI GRAYG W HARVEY BILon 2024 [facility] MARCO W HARVEY SAADIA * * *Final Report* * * DATE OF EXAM: Jun 25 2024 1:43PM [facility] 0627 - [facility] MARCO W HARVEY SAADIA / PROCEDURE REASON: multiple diagnoses * * * * Physician Interpretation * * * * RESULT: [address] [place] [address] #[id number] - [facility] MARCO Hogue HARVEY SAADIA #[id number] - [facility] BREAST LTD #[id number] - [facility] BREAST LTD RT HISTORY: 34 year-old [...] Lea Almanzar M.D. Electronically signed on: 06/25/2024 As400 Consultant: BISHOP Transcridalton Date/Time: Jun 25 2024 1:29 (more content not included)... Normal [facility] US BREAST LTD LTon 06-25 [facility] US BREAST LTD LT * * *Final Report* * * DATE OF EXAM: Jun 25 2024 2:21PM [facility] 0593 - [facility] US BREAST LTD LT / PROCEDURE REASON: multiple diagnoses * * * * Physician Interpretation * * * * RESULT: [address] [place] [address] #[id number] - [facility] MARCO ZEE #[id number] - [facility] US BREAST LTD LT #[id number] - [facility] US BREAST LTD RT HISTORY: [...] Lea Almanzar M.D. Electronically signed on: 06/25/2024 As400 Consultant: BISHOP Transcribe Date/Time: Jun 25 2024 2:1 (more content not included)... Normal [facility] US BREAST LTD RTon 06-25 [facility] US BREAST LTD RT * * *Final Report* * * DATE OF EXAM: Jun 25 2024 2:31PM [facility] 0594 - [facility] US BREAST LTD RT / PROCEDURE REASON: multiple diagnoses * * * * Physician Interpretation * * * * RESULT: [address] [place] [address] #[id number] - [facility] MARCO W HARVEY SAADIA #[id number] - [facility] US BREAST LTD LT #[id number] - [facility] US BREAST LTD RT HISTORY: [...] Lea Almanzar M.D. Electronically signed on: 06/25/2024 As400 Consultant: BISHOP Transcribe Date/Time: Jun 25 2024 2:1 (more content not included)... Normal [facility] No Panel InformationOrdered By: Ccf Provider on 06-25-2024 [facility] No Panel Informationon 06-25 Radiology Study observation (narrative) [facility] US Breast - left limitedon 0 06-25-2024 [...] Lea Almanzar M.D. Electronically signed on: 06/25/2024 As400 Consultant: BISHOP Trujilloridalton Date/Time: Jun 25 2024 2:11P Dictated by : LEA ALMANZAR MD This examination was interpreted and the report reviewed and electronically signed by: LEA ALMANZAR MD on Jun 25 2024 4:12PM [facility] DIVISION OF RADIOLOGY * * *Final Report* * * DATE OF EXAM: Jun 25 2024 2:21PM [facility] 0593 - [facility] [employer] BREAST LTD LT / PROCEDURE REASON: multiple diagnoses * * * * Physician Interpretation * * * * RESULT: [address] [place] [address] #[id number] - [facility] MARCO ALFARO SAADIA #[id number] - [facility] [employer] BREAST LTD LT #[id number] - [facility] [employer] [employer] BREAST LTD RT HISTORY: 34 year-old patient [...] the left breast. DIVISION OF RADIOLOGY Provider, [facility] - 06/25/2024 * * *Final Report* * * DATE OF EXAM: Jun 25 2024 2:21PM [facility] 0593 - [facility] [employer] BREAST [employer] LT / PROCEDURE REASON: multiple diagnoses * * * * Physician Interpretation * * * * RESULT: [place] [address] #[id number] - [facility] MARCO ZEE #[id number] - [facility] [employer] [employer] BREAST LTD #[id number] - [facility] [place] [employer] BREAST LTD RT HISTORY: 34 year-old patient [...] dense breast tissue. (more content not included)... [facility] US Breast - right limitedon 06-25-2024 [...] Lea Almanzar M.D. Electronically signed on: 06/25/2024 As400 Consultant: BISHOP Transcribe Date/Time: Jun 25 2024 2:10P Dictated by : LEA ALMANZAR MD This examination was interpreted and the report reviewed and electronically signed by: LEA ALMANZAR MD on Jun 25 2024 4:12PM [facility] DIVISION OF RADIOLOGY * * *Final Report* * * DATE OF EXAM: Jun 25 2024 2:31PM [facility] 0594 - [facility] [employer] BREAST LTD RT / PROCEDURE REASON: multiple diagnoses * * * * Physician Interpretation * * * * RESULT: [place] [address] #[id number] - SAJI DIAG W HARVEY SAADIA #[id number] - [facility] US BREAST LTD LT #[id number] - [facility] US BREAST LTD RT HISTORY: [...] the left breast. DIVISION OF RADIOLOGY Provider, [facility] - 06/25/2024 * * *Final Report* * * DATE OF EXAM: Jun 25 2024 2:31PM [facility] 0594 - [facility] US BREAST LTD RT / PROCEDURE REASON: multiple diagnoses * * * * Physician Interpretation * * * * RESULT: [address] [place] [address] #[id number] - [facility] MARCO ALFARO SADAIA #[id number] - [facility] BREAST LTD #[id number] - [facility] BREAST LTD RT HISTORY: 34 year-old [...] dense breast tissue. (more content not included)... 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 In regards to her right bloody/clear spontaneous [...] Status:Closed by PRINCE MON on 05/23/24 Normal [facility] MRI BREAST WO/W IVCON BILon 05-20-2024 MRI BREAST WO/W IVCON SAADIA * * *Final Report* * * DATE OF EXAM: May 20 2024 1:08PM [facility] 0773 - MRI BREAST WO/W IVCON SAADIA / PROCEDURE REASON: Nipple discharge * * * * Physician Interpretation * * * * [facility] [employer] [address] [place] [address] #[id number] - MRI BREAST WO/W IVCON SAADIA HISTORY: [...] completed on an independent workstation. An additional [id number] resolution sequence was performed after the first two 1 minute post-contrast sequences. Complex volumetric analysis requiring post processing was performed using a semi-automated software Dynacad, on an independent workstation by the physician, [...] Ryan Sheppard M.D. Electronically signed on: 05/21/2024 As400 Consultant: BISHOP Trujilloribe Date/Time: May 20 2024 12:55P Dictated by : RYAN SHEPPARD MD This examination was interpreted and the report reviewed and electronically signed by: RYAN SHEPPARD MD on May 21 2024 8:05AM EST [id number] Normal [facility] CBC W Auto Differential pane l (Bld)on 05-18-2024 Interpretation and review of laboratory results Abnormal [facility] MCHC (RBC) [Mass/Vol] 34.3 % 33.0 - 37.0 % [facility] Segmented neutrophils/100 WBC (Bld) 63.6 % [facility] CBC With Platelet and Differ entialon 05-18-2024 Basophils (Bld) [#/Vol] 0.0 10*3/uL Normal 0.0-0.2 [facility] Comment on above: Performed By: #### C BCWD #### [facility] [address] [facility] [address] [place] [address] Basophils/100 WBC (Bld) 0.3 % Normal [facility] Comment on above: Performed By: #### C BCWD #### [facility] [address] [place] [address] Eosinophils (Bld) [#/Vol] 0.1 10*3/uL Normal 0.0-0.7 [facility] Comment on above: Performed By: #### C BCWD #### [facility] [address] [place] [address] Eosinophils/100 WBC (Bld) 1.2 % Normal [facility] Comment on above: Performed By: #### C BCWD #### [facility] [address] [place] [address] Erythrocyte distribution width (RBC) [Ratio] 12.1 % Normal 11.5-14.5 [facility] Comment on above: Performed By: #### C BCWD #### [facility] [address] [place] [address] Hematocrit (Bld) [Volume fraction] 44.0 % Normal 37.0-47.0 [facility] Comment on above: Performed By: #### C BCWD #### [facility] [address] [place] [address] Hemoglobin (Bld) [Mass/Vol] 15.1 g/dL Normal 12.0-16.0 [facility] Comment on above: Performed By: #### C BCWD #### [facility] [address] [place] [address] Lymphocytes (Bld) [#/Vol] 2.3 10*3/uL Normal 1.0-4.8 [facility] Comment on above: Performed By: #### C BCWD #### [facility] [address] [place] [address] Lymphocytes/100 WBC (Bld) 26.6 % Normal [facility] Comment on above: Performed By: #### C BCWD #### [facility] [address] [place] [address] MCH (RBC) [Entitic mass] 31.5 pg Critically high 27.0-31.3 [facility] Comment on above: Performed By: #### C BCWD #### [facility] [address] [place] [address] MCHC 34.3 % Normal 33.0-37.0 [facility] Comment on above: Performed By: #### C BCWD #### [facility] [address] [place] [address] MCV (RBC) [Entitic vol] 91.9 fL Normal 79.4-94.8 [facility] Comment on above: Performed By: #### C BCWD #### [facility] [address] [place] [address] Monocytes (Bld) [#/Vol] 0.7 10*3/uL Normal 0.2-0.8 [facility] Comment on above: Performed By: #### C BCWD #### [facility] [address] [place] [address] Monocytes/100 WBC (Bld) 8.1 % Normal [facility] Comment on above: Performed By: #### C BCWD #### [facility] [address] [place] [address] Neutrophils (Bld) [#/Vol] 5.5 10*3/uL Normal 1.4-6.5 [facility] Comment on above: Performed By: #### C BCWD #### [facility] [address] [place] [address] Neutrophils/100 WBC (Bld) 63.6 % Normal [facility] Comment on above: Performed By: #### C BCWD #### [facility] [address] [place] [address] Platelets (Bld) [#/Vol] 199 10*3/uL Normal 130-400 [facility] Comment on above: Performed By: #### C BCWD #### [facility] [address] [place] [address] RBC (Bld) [#/Vol] 4.79 10*6/uL Normal 4.20-5.40 [facility] Comment on above: Performed By: #### C BCWD #### [facility] [address] [place] [address] WBC (Bld) [#/Vol] 8.7 10*3/uL Normal 4.8-10.8 [facility] Comment on above: Performed By: #### C BCWD #### [facility] [address] [place] [address] CT HEAD WO CONTRASTon 2024 CT HEAD [...] Baudilio Ortiz MD 05/18/24 Final result Normal [facility] CT Head WO contraston 2024 No acute intracranial abnormality noted. [facility] RADIOLOGY EXAM: CT Head Without Intravenous Contrast [...] cells: Unremarkable as visualized. No mastoid effusion. [facility] RADIOLOGY Baudilio Ortiz MD - 05/18/2024 EXAM: [...] effusion. IMPRESSION: No acute intracranial abnormality noted. [facility] Radiology Study observation (narrative) [facility] CT Head WO contrastOrdered B y: Baudilio Ortiz on 05-18-2024 [facility] Work Phone: Comprehensive Metabolic Pane mitchel 05-18-2024 Albumin [Mass/Vol] 4.4 g/dL Normal 3.5-4.6 [facility] Comment on above: Performed By: #### C MP #### [facility] [address] [place] [address] ALP [Catalytic activity/Vol] 55 U/L Normal 40-130 [facility] Comment on above: Performed By: #### C MP #### [facility] [address] [place] [address] ALT [Catalytic activity/Vol] 22 U/L Normal 0-33 [facility] Comment on above: Result Comment: Spec imen hemolysis has exceeded the interference as defined by Jasvir. Result may be affected. Suggest recollection if clinically indicated. Performed By: #### C MP #### [facility] [address] [place] [address] Anion gap [Moles/Vol] 13 mmol/L Normal 9-15 [facility] Comment on above: Performed By: #### C MP #### [facility] [address] [place] [address] AST [Catalytic activity/Vol] 21 U/L Normal 0-35 [facility] Comment on above: Result Comment: Spec imen hemolysis has exceeded the interference as defined by Jasvir. Value may be falsely increased. Suggest recollection if clinically indicated. Performed By: #### C MP #### [facility] [address] [place] [address] Bilirubin [Mass/Vol] 0.4 mg/dL Normal 0.2-0.7 [facility] Comment on above: Performed By: #### C MP #### [facility] [address] [place] [address] Calcium [Mass/Vol] 9.3 mg/dL Normal 8.5-9.9 [facility] Comment on above: Performed By: #### C MP #### [facility] [address] [place] [address] Chloride [Moles/Vol] 104 mmol/L Normal 95-107 [facility] Comment on above: Performed By: #### C MP #### [facility] [address] [place] [address] CO2 [Moles/Vol] 20 mmol/L Normal 20-31 [facility] Comment on above: Performed By: #### C MP #### [facility] [address] [place] [address] Creatinine [Mass/Vol] 0.69 mg/dL Normal 0.50-0.90 [facility] Comment on above: Performed By: #### C MP #### [facility] [address] [place] [address] GFR >90.0 Normal >60 [facility] Comment on above: Result Comment: Pedi atric calculator link https://www.kidney.org/professionals/kdoqi/gfr_calculatorped Effective Jan 21, [...] secretion. Performed By: #### C MP #### [facility] [address] [place] [address] Globulin (S) [Mass/Vol] 2.7 g/dL Normal 2.3-3.5 [facility] Comment on above: Performed By: #### C MP #### [facility] [address] [place] [address] Glucose [Mass/Vol] 96 mg/dL Normal 70-99 [facility] Comment on above: Performed By: #### C MP #### [facility] [address] [place] [address] Potassium [Moles/Vol] 4.4 mmol/L Normal 3.4-4.9 [facility] Comment on above: Result Comment: Spec imen hemolysis has exceeded the interference as defined by Jasvir. Value may be falsely increased. Suggest recollection if clinically indicated. Performed By: #### C MP #### [facility] [address] [place] [address] Protein [Mass/Vol] 7.1 g/dL Normal 6.3-8.0 [facility] Comment on above: Performed By: #### C MP #### [facility] [address] [place] [address] Sodium [Moles/Vol] 137 mmol/L Normal 135-144 [facility] Comment on above: Performed By: #### C MP #### [facility] [address] [place] [address] Urea nitrogen [Mass/Vol] 11 mg/dL Normal 6-20 [facility] Comment on above: Performed By: #### C #### [facility] [address] [place] [address] Comprehensive metabolic 2000 panelon 05-18-2024 Albumin [Mass/Vol] 4.4 g/dL 3.5 - 4.6 g/dL [facility] ALP [Catalytic activity/Vol] 55 U/L 40 - 130 U/L [facility] ALT [Catalytic activity/Vol] 22 U/L 0 - 33 U/L [facility] Comment on above: Specimen hemolysis h as exceeded the interference as defined by Jasvir. Result may be affected. Suggest recollection if clinically indicated. Anion gap [Moles/Vol] 13 mmol/L [facility] AST [Catalytic activity/Vol] 21 U/L 0 - 35 U/L [facility] Comment on above: Specimen hemolysis h as exceeded the interference as defined by Jasvir. Value may be falsely increased. Suggest recollection if clinically indicated. Bilirubin [Mass/Vol] 0.4 mg/dL 0.2 - 0 .7 mg/dL [facility] Calcium [Mass/Vol] 9.3 mg/dL 8.5 - 9.9 mg/dL [facility] Chloride [Moles/Vol] 104 mmol/L [facility] CO2 [Moles/Vol] 20 mmol/L [facility] Creatinine [Mass/Vol] 0.69 mg/dL 0.50 - 0.90 mg/dL [facility] GFR/1.73 sq M.predicted among non-blacks MDRD (S/P/Bld) [Vol rate/Area] 60 - PINF [facility] Comment on above: Pediatric calculator link https://www.kidney.org/professionals/kdoqi/gfr_calculatorped [...] [Mass/Vol] 2.7 g/dL 2.3 - 3.5 g/dL [facility] Glucose [Mass/Vol] 96 mg/dL 70 - 99 mg/dL [facility] Potassium [Moles/Vol] 4.4 mmol/L [facility] Comment on above: Specimen hemolysis h as exceeded the interference as defined by Jasvir. Value may be falsely increased. Suggest recollection if clinically indicated. Protein [Mass/Vol] 7.1 g/dL 6.3 - 8.0 g/dL [facility] Sodium [Moles/Vol] 137 mmol/L [facility] Urea nitrogen [Mass/Vol] 11 mg/dL 6 - 20 mg/dL [facility] Magnesiumon 05-18-2024 Magnesium [Mass/Vol] 2.1 mg/dL 1.7 - 2 .4 mg/dL [facility] Magnesium [Mass/Vol] 2.1 mg/dL Normal 1.7-2.4 [facility] Comment on above: Performed By: #### M G #### [facility] [address] [facility] [address] [facility] [address] No Panel Informationon 05-18 [facility] UR Drugs of Abuse Panelon Drug Screen Comment see below Normal [facility] Comment on above: Result Comment: This method is a screening test to detect only these drug classes as part of a medical workup. Confirmatory testing by another method should be ordered if clinically indicated. Performed By: #### U DRGS #### [facility] [address] [place] [address] UR Benzo Screen Positive Abnormal Negative < [facility] Comment on above: Performed By: #### U DRGS #### [facility] [address] [facility] [place] [address] UR Amphetamines Screen Negative Normal Negative < [facility] Comment on above: Performed By: #### U DRGS #### [facility] [address] [facility] [place] [address] UR Barbiturates Screen Negative Normal Negative < [facility] Comment on above: Performed By: #### U DRGS #### [facility] [address] [place] [address] UR Cannabinoids Screen Negative Normal Negative < [facility] Comment on above: Performed By: #### U DRGS #### [facility] [address] [place] [place] [address] UR Cocaine Screen Negative Normal Negative < [facility] Comment on above: Performed By: #### U DRGS #### [facility] [address] [place] [address] UR Fentanyl Screen Negative Normal Negative < [facility] Comment on above: Performed By: #### U DRGS #### [facility] [address] [place] [address] UR Methadone Screen Negative Normal Negative < [facility] Comment on above: Performed By: #### U DRGS #### [facility] [address] [place] [address] UR Opiates Screen Negative Normal Negative < [facility] Comment on above: Performed By: #### U DRGS #### [facility] [address] [place] [address] UR Oxycodone Screen Negative Normal Negative < [facility] Comment on above: Performed By: #### U DRGS #### [facility] [address] [place] [address] UR PCP Screen Negative Normal Negative < [facility] Comment on above: Performed By: #### U DRGS #### [facility] [address] [place] [address] UR Propoxyphene Screen Negative Normal Negative < [facility] Comment on above: Performed By: #### U DRGS #### [facility] [address] [place] [address] Urine Drug Screenon 05-18-19 25 Amphetamines Ql (U) Negative Negative <1000 ng/mL [facility] Barbiturates Screen Ql (U) Negative Negative < 200 ng/mL [facility] Benzodiazepines Ql (U) Positive Abnormal Negat wang < 200 ng/mL [facility] Cannabinoids Screen Ql (U) Negative Negative < 50 ng/mL [facility] Cocaine Ql (U) Negative Negative < 300 ng/mL [facility] Drug screen comment (U) [Interp] see below [facility] Comment on above: This method is a scr eening test to detect only these drug classes as part of a medical workup. Confirmatory testing by another method should be ordered if clinically indicated. FENTANYL SCREEN, URINE Negative Negat wang < 50 ng/mL [facility] Interpretation and review of laboratory results Abnormal [facility] Methadone Screen Ql (U) Negative Nega tive <300 ng/mL [facility] Opiates Screen Ql (U) Negative Negati ve < 300 ng/mL [facility] oxyCODONE Ql (U) Negative Negative <100 ng/mL [facility] Phencyclidine Ql (U) Negative Negativ e < 25 ng/mL [facility] Propoxyphene Screen Ql (U) Negative Negative <300 ng/mL [facility] XR SHOULDER RIGHT (MIN 2 VIE WS)on [...] Baudilio Ortiz MD 05/18/24 Final result Normal [facility] XR Shoulder - right 2 Viewso n 05-18-2024 No acute findings in the right shoulder. [facility] RADIOLOGY EXAM: XR Right Shoulder Complete, 2 [...] No dislocation. Soft tissues: No acute findings. [facility] RADIOLOGY Baudilio Ortiz MD - 05/18/2024 EXAM: [...] No acute findings in the right shoulder. [facility] Radiology Study observation (narrative) [facility] CNOVon 03-12-2024 CNOV Office Visit (BRCRMN ) ----- SULLY ENRIQUEZ ([id number]) 1990 F Date Time Provider Department 03/12/24 10:00 AM PRINCE MON PREMLA During your visit today, we recorded the following information about you: Weight Height 105.7 kg 1.651 m Prince Mon PA-C 03/15/2024 4:18 PM Signed [facility] [place] Department of Breast Surgical Oncology [facility] FOLLOW UP HPI: Sully Enriquez is [...] Strain: Low Risk (12/17/2023) Received from [facility] Overall Financial Resource Strain (CARDIA) Difficulty of Paying Living Expenses: Not hard at all Food Insecurity: No Food Insecurity (12/17/2023) Received from [facility] Hunger Vital Sign (more content not included)... Normal [facility] DBT Breast - right diagnosti c for [...] Edgard Cole M.D. Electronically signed on: 03/12/2024 As400 Consultant: BISHOP Transcribe Date/Time: Mar 12 2024 10:58A Dictated by : EDGARD COLE MD This examination was interpreted and the report reviewed and electronically signed by: EDGARD COLE MD on Mar 12 2024 1:18PM [facility] DIVISION OF RADIOLOGY * * *Final Report* * * DATE OF EXAM: Mar 12 2024 11:12AM [facility] 0629 - [facility] DIAG W HARVEY RT / PROCEDURE REASON: multiple diagnoses * * * * Physician Interpretation * * * * RESULT: [place] [address] #[id number] - [facility] DIAG W HARVEY RT #[id number] - [facility] US BREAST LTD RT HISTORY: [...] the subareolar region. DIVISION OF RADIOLOGY Provider, [facility] - 03/12/2024 * * *Final Report* * * DATE OF EXAM: Mar 12 2024 11:12AM W 0629 - [facility] MARCO ALFARO RT / PROCEDURE REASON: multiple diagnoses * * * * Physician Interpretation * * * * RESULT: [address] [place] [address] #[id number] - [facility] MARCO FORRESTO RT #[id number] - [facility] BREAST LTD RT HISTORY: Patient is [...] Edgard Cole M.D. Electronically signed on: 03/12/2024 As400 Consultant: BISHOP Transcribe Date/Time: Mar 12 2024 10:58A Dictated by : EDGARD COLE MD This examination was interpreted and the report reviewed and electronically signed by: EDGARD COLE MD on Mar 12 2024 1:18PM EST [facility] SAJI DIAG W HARVEY RTon 024 SA[facility] DIAG W HARVEY RT * * *Final Report* * * DATE OF EXAM: Mar 12 2024 11:12AM [facility] 0629 - [facility] DIAG W HARVEY RT / PROCEDURE REASON: multiple diagnoses * * * * Physician Interpretation * * * * RESULT: [facility] [address] [facility] [address] [place] [id number] #[id number] - [facility]I DIAG W HARVEY RT #[id number] - [facility] BREAST LTD RT HISTORY: Patient is [...] Edgard Cole M.D. Electronically signed on: 03/12/2024 As400 Consultant: BISHOP Trujilloridalton Date/Time: Mar 12 2024 10:58A Dictated by : EDGARD COLE MD This examination was interpreted and the report reviewed and electronically signed by: EDGARD COLE MD on Mar 12 2024 1:18PM EST [id number] Normal [facility] [employer] BREAST LTD RTon 03-12 [facility] [employer] BREAST LTD RT * * *Final Report* * * DATE OF EXAM: Mar 12 2024 11:41AM [facility] 0594 - [facility] [employer] BREAST [employer] RT / PROCEDURE REASON: multiple diagnoses * * * * Physician Interpretation * * * * RESULT: [address] [place] [address] #[id number] - [facility] MARCO ALFARO RT #[id number] - [facility] BREAST LTD RT HISTORY: Patient is [...] Edgard Cole M.D. Electronically signed on: 03/12/2024 As400 Consultant: BISHOP Transcribe Date/Time: Mar 12 2024 11:27A Dictated by : EDGARD COLE MD This examination was interpreted and the report reviewed and electronically signed by: EDGARD COLE MD on Mar 12 2024 1:18PM EST [id number] Normal [facility] No Panel InformationOrdered By: Ccf Provider on 03-12-2024 [facility] No Panel Informationon 03-12 Radiology Study observation (narrative) [facility] US Breast - right limitedon [...] Edgard Cole M.D. Electronically signed on: 03/12/2024 As400 Consultant: BISHOP Transcribe Date/Time: Mar 12 2024 11:27A Dictated by : EDGARD COLE MD This examination was interpreted and the report reviewed and electronically signed by: EDGARD COLE MD on Mar 12 2024 1:18PM [facility] DIVISION OF RADIOLOGY * * *Final Report* * * DATE OF EXAM: Mar 12 2024 11:41AM [facility] 0594 - [facility] [employer] BREAST [employer] RT / PROCEDURE REASON: multiple diagnoses * * * * Physician Interpretation * * * * RESULT: [address] [place] [id number] #[id number] - [facility] MARCO W HARVEY RT #[id number] - [facility] [employer] BREAST [employer] RT HISTORY: Patient is 34 years old [...] subareolar region. DIVISION OF RADIOLOGY Provider, Alexa yañez [place] - 03/12/2024 * * *Final Report* * * DATE OF EXAM: Mar 12 2024 11:41AM [facility] 0594 - [facility] [employer] BREAST [employer] RT / PROCEDURE REASON: multiple diagnoses * * * * Physician Interpretation * * * * RESULT: [address] [place] [address] #[id number] - [facility] MARCO ALFARO RT #[id number] - [facility] [employer] RT HISTORY: Patient is 34 years old [...] Edgard Cole M.D. Electronically signed on: 03/12/2024 As400 Consultant: BISHOP Trujilloribe Date/Time: Mar 12 2024 11:27A Dictated by : EDGARD COLE MD This examination was interpreted and the report reviewed and electronically signed by: EDGARD COLE MD on Mar 12 2024 1:18PM [facility] CNOVon 02-17-2024 CNOV Office Visit (ENDOLN ) ----- SULLY ENRIQUEZ ([id number]) 1990 F Date Time Provider Department 10/29/24 1:00 PM LEOBARDO ANDERSON ENDOLN During your [...] [Azithrom* Unk (more content not included)... Normal [facility] CNOVon 01-30-2024 CNOV Office Visit (BRCRMN ) ----- SULLY ENRIQUEZ ([id number]) 1990 F Date Time Provider Department 01/30/24 9:30 AM PRINCE MON [facility] During your visit today, we [...] at di (more content not included)... Normal [facility] US BREAST LTD RTon 01-29 [facility] US BREAST LTD RT * * *Final Report* * * DATE OF EXAM: Jan 30 2024 10:28AM W 0594 - [facility] US BREAST LTD RT / PROCEDURE REASON: multiple diagnoses * * * * Physician Interpretation * * * * RESULT: [address] [place] [address] HISTORY: Patient is 33 years old and [...] Henrique Oro M.D. Electronically signed on: 01/30/2024 As400 Consultant: BISHOP Transcridalton Date/Time: Jan 30 2024 10:14A Dictated by : LOUIE DOLL DO This examination was interpreted and the report reviewed and electronically signed by: HENRIQUE ORO MD on Jan 30 2024 10:36AM EST [id number] Normal [facility] US Breast - right limitedon 01-30-2024 IMPRESSION: There is no abnormality seen in the breast to correspond with the reported palpable abnormalities. Clinical follow-up is recommended. Follow up with ACR and NCCN guidelines is otherwise recommended. BI-RADS Category 1: Negative Interpreting Radiologist: Henrique Oro M.D. Electronically signed on: 01/30/2024 As400 Consultant: BISHOP Transcribe Date/Time: Jan 30 2024 10:14A Dictated by : LOUIE DOLL DO This examination was interpreted and the report reviewed and electronically signed by: HENRIQUE ORO MD on Jan 30 2024 10:36AM [facility] DIVISION OF RADIOLOGY * * *Final Report* * * DATE OF EXAM: Jan 30 2024 10:28AM [facility] 0594 - [facility] BREAST [facility] RT / PROCEDURE REASON: multiple diagnoses * * * * Physician Interpretation * * * * RES[address] [place] [id number] HISTORY: Patient is 33 years old and [...] cystic mass identified. DIVISION OF RADIOLOGY Provider, [facility] - 01/30/2024 * * *Final Report* * * DATE OF EXAM: Jan 30 2024 10:28AM [facility] 0594 - [facility] BREAST LTD RT / PROCEDURE REASON: multiple diagnoses * * * * Physician Interpretation * * * * [address] [address] HISTORY: Patient is 33 years old and [...] Henrique Oro M.D. Electronically signed on: 01/30/2024 As400 Consultant: BISHOP Trujilloribe Date/Time: Jan 30 2024 10:14A Dictated by : LOUIE DOLL DO This examination was interpreted and the report reviewed and electronically signed by: HENRIQUE ORO MD on Jan 30 2024 10:36AM EST [facility] Radiology Study observation (narrative) [facility] US Breast - right limitedOrd ered By: Ccomar Provider on 01-30-2024 [facility] CNOVon 01-19-2024 CNOV Office Visit (BRCRMN ) ----- SULLY ENRIQUEZ ([id number]) 1990 F Date Time Provider Department 01/19/24 2:45 PM PRINCE MON During your visit today, we [...] Encounter Status:Closed by PRINCE MON on 01/19/24 [facility] Kt 01-09-2024 CNPN Telephone (BRCRMN) ----- SULLY ENRIQUEZ ([id number]) 1990 F Date Time Provider Department 01/09/24 JACKIE SUTTON During your visit today, we recorded the following information about you: Anyi Cheatham 01/09/2024 1:59 PM Signed Patient called stating that since last night she is experiencing right side pain and arm movement makes it worse (level 8), warm to touch, nausea. Patient can be reached at [phone]. Thanks Naresh Wallis 01/09/2024 4:36 PM Signed [...] Unknown Date Reviewed: 01/08/2024 Reviewed by: Maritza Beebe RN - Fully Assessed Reason for Visit: [...] Encounter Status:Closed by NARESH WALLIS on 01/09/24 [facility] ANES POSTPROC EVALon 024 ANES POSTPROC EVAL HNO ID: [id number] Author: EDUARDO DAVIS MD Service: Anesthesiology Author Type: Anesthesiologist Type: Anesthesia Postprocedure Evaluation Filed: 01/08/2024 11:15 Note Text: POST ANESTHESIA EVALUATION NOTE : 1990 Procedure Summary Date: 01/08/24 Room / Location: [address] Anesthesia Start: 731 Anesthesia Stop: 922 [...] January 08, 2024 TIME: 11:15 AM CSN: [id number] Normal [facility] ANES PRE-OPon 01-08-2024 ANES PRE-OP HNO ID: [id number] Author: BAMBI MAGANA DO Service: Anesthesiology Author Type: Anesthesiologist Type: Anesthesia Preprocedure Evaluation Filed: 01/08/2024 07:07 Note Text: ANESTHESIOLOGY DAY OF SURGERY NOTE : 1990 Procedure Information Date/Time: 01/08/24729 Procedure: RIGHT LIV EXCISIONAL BIOPSY (Right: Breast) Location: [address] Surgeons: Jackie Sutton MD Estimated body [...] (97.3 ?F) 01/08/24 0647 SpO2 99 % 01/08/24 0647 Facility-Administered Medications as of 01/08/2024 Medication Dose [...] January 08, 2024 TIME: 6:57 AM CSN: [id number] Normal [facility] HISTORY PHYSICALon HISTORY PHYSICAL HNO ID: [id number] Author: JACKIE SUTTON MD Service: General Surgery Author Type: Physician Type: H&P Filed: 01/08/2024 07:25 Note Text: UPDATED HISTORY AND PHYSICAL EXAMINATION SERVICE DATE: 01/08/2024 SERVICE TIME: 7:25 AM SENSITIVE EXAMINATION CONSENT: The sensitive examination was discussed with the Patient or Patient's Authorized Workers Compensation Coordinator. As applicable, any other physician, advance practice provider, medical student, or other health professional student that will be observing or involved in the sensitive examination for educational or training purposes was discussed with the Patient or Authorized Workers Compensation Coordinator. The Patient or Authorized Workers Compensation Coordinator has agreed to proceed with the sensitive [...] 2024 TIME: 7:25 AM Normal [facility] SAJI SURGICAL BREAST SPECIMEN RTon 01-08-2024 [facility] SURGICAL BREAST SPECIMEN RT * * *Final Report* * * DATE OF EXAM: Jan 08 2024 8:41AM [facility] 0639 - [facility] SURGICAL BREAST SPECIMEN RT / PROCEDURE REASON: Right breast surgical specimen * * * * Physician Interpretation * * * * [place] [address] HISTORY: Right Specimen Radiograph CORRELATION: A single image of the surgical specimen demonstrates a LIV clean up helper banquet, a hydromark open coil clip, and a buckle clip in the specimen. IMPRESSION: SPECIMEN A single image of the surgical specimen demonstrates a LIV clean up helper banquet, a hydromark open coil clip, and a buckle clip in the specimen. SUMMARY: Urgent Results: The results of the specimen radiograph were discussed with Dr. Sutton in the O.R. On 01/08/2024 at 0847. Interpreting Radiologist: Kristi Cheek M.D. As400 Consultant: iWatt Transcribe Date/Time: Jan 08 2024 8:41A Dictated by : KRISTI CHEEK MD This examination was interpreted and the report reviewed and electronically signed by: KRISTI CHEEK MD on Jan 08 2024 8:50AM EST [id number] Normal [facility] OPERATIVE NOon 01-08-2024 OPERATIVE NO HNO ID: [id number] Author: JACKIE SUTTON MD Service: General Surgery Author Type: Physician Type: Operative Report Filed: 01/08/2024 08:43 Note Text: OPERATIVE/PROCEDURE REPORT LOG ID: [id number] SURGERY DATE: 01/08/2024 Incision/Procedure Start Time: 8:00 AM Incision Close/Procedure End Time: 8:42 AM Surgeon(s) and Casino Manager(s): Surgeons and Role: * Jackie Sutton MD - Primary * Modesto Goff MD - Resident - Assisting No Additional Staff SURGERY/PROCEDURES: RIGHT breast [employer] INTERN localized excisional biopsy Anesthesia: General Breast History: 06/2023 - Self palpated RIGHT breast mass. 06/25/23 ([facility]) - diagnostic bilateral mammogram/US - diffuse heterogenous density. In the right breast at 8:00 approximately 4 to 5 cm from the nipple, is a hypoechoic avascular area that measures 2.0 x 1.6 x 1.1 cm. In the right upper outer quadrant of the breast at 2.8 x 1.0 x 2.8 cm lymph node is seen. There is no cortical thickening. 07/07/23 ([facility] - US guided CNB 8:00 4-5 CMFN 2 x 1 x 1.7 cm mass with unspecified clip placement - fibrocystic change. Concordant. 4/18/24 ([facility]) - RIGHT breast US - 8:00 [...] laterality, and other pertinent information. The [employer]EVER[employer] INTERN was localized within the breast, and its location was marked on the skin. Local anesthesia was infiltrated in a dermal and deep parenchymal pattern. A lateral inframammary incision was made. Flaps were created around the lesion, using the [employer] probe for guidance, with an adequate margin [...] imaging was performed which identified the LIV [employer] BEVER[employer] INTERN, the biopsy clips, and the lesion of [...] Collected by Time Destination A : liv clean up helper banquet right breast. (suture sr short superior, long [...] DATE: 01/08/2024 TIME: 8:42 AM PAGER/CONTACT #: [phone] Normal [facility] SURGICAL PATHOLOGYon 024 CASE REPORT Normal [facility] Comment on above: Order Comment: Speci men Type: TISSUE SPECIMEN Ordering Facility: [facility] Address: [address] [place] [address] Result Comment: Surg [facility] Pathology Report Case: [id number] Authorizing Provider: Jackie Sutton MD Collected: 01/08/2024 07:10 AM Ordering Location: Ambulatory Surgery Received: 01/08/2024 09:04 AM Pathologist: Pat Silveira MD Specimen: Breast, Right, Excision of Lesion, liv clean up helper banquet right breast. 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 - Adjacent breast tissue with cystic change, apocrine metaplasia, usual ductal hyperplasia, and columnar cell change. - Core biopsy site changes and clip x 2. Performed By: #### S #### [facility] CLIA [id number] [address] [place] [address] [place] [facility] CLIA [id number] [address] [place] [address] STATES OF [facility] FINAL PERFORMING LAB Normal [facility] Comment on above: Order Comment: Speci men Type: TISSUE SPECIMEN Ordering Facility: [facility] Address: [address] [place] [address] Result Comment: Diag nostic interpretation performed at [place], [address] [place] [address] CLIA# [id number] Associate Program Manager: Columba Villasenor M.D. Performed By: #### S #### [facility] CLIA [id number] [address] [place] [address] [place] [facility] CLIA [id number] [address] [place] [address] [place] GROSS DESCRIPTION Normal [facility] Comment on above: Order Comment: Speci men Type: TISSUE SPECIMEN Ordering Facility: [facility] Address: [address] [place] [address] Result Comment: Emma Lebron reast, Right, Excision [...] prior to sectioning to reveal a Liv clean up helper banquet device, a buckle clip and a HydroMARK [...] in formalin was 8:55 AM on 01/08/2024. Workers Compensation Coordinator sections are submitted as follows: A1 slice [...] and posterior margin Gross examination performed at [facility], [facility] [place] [address] CLIA# [id number] [facility] 01/08/24 12:49 PM Performed By: #### S #### [facility] CLIA [id number] [address] [place] [address] [place] [facility] CLIA [id number] [address] [place] [address] [place] Basophils Auto (Bld) [#/Vol] on 01-07-2024 Basophils (Bld) [#/Vol] 0.05 10*3/uL <0.11 [facility] Basophils/100 WBC Auto (Bld) on 01-07-2024 Basophils/100 WBC (Bld) 0.8 % F [facility] Blood manual differential co mment interpretation narrativeon 01-07-2024 Manual differential comment David (Bld) [Interp] Auto [facility] CBC W Auto Differential pane l (Bld)on 01-07-2024 Basophils (Bld) [#/Vol] 0.05 10*3/uL Normal <0.11 [facility] Comment on above: Order Comment: Speci men Type: BLOOD SPECIMENOrdering Facility: [facility] Address: [address] [place] [address] Performed By: #### 5 7021-8 ####[facility] [id number] [place] [address] [place] Basophils/100 WBC (Bld) 0.8 % Normal C [facility] Comment on above: Order Comment: Speci men Type: BLOOD SPECIMENOrdering Facility: [facility] Address: [address] [place] [address] Performed By: #### 5 7021-8 ####[facility] [id number] [place] [address] [place] Differential cell count method Nom (Bld) Auto Normal [facility] Comment on above: Order Comment: Speci men Type: BLOOD SPECIMENOrdering Facility: [facility] Address: [address] [place] [address] Performed By: #### 5 7021-8 ####[facility] [id number] [place] [address] [place] Eosinophils (Bld) [#/Vol] 0.10 10*3/uL Normal <0.46 [facility] Comment on above: Order Comment: Speci men Type: BLOOD SPECIMENOrdering Facility: [facility] Address: [address] [place] [address] Performed By: #### 5 7021-8 ####[facility] [id number] [place] [address] [place] Eosinophils/100 WBC (Bld) 1.5 % Normal [facility] Comment on above: Order Comment: Speci men Type: BLOOD SPECIMENOrdering Facility: [facility] Address: [address] [place] [address] Performed By: #### 5 7021-8 ####[facility] [id number] [place] [address] [place] Erythrocyte distribution width (RBC) [Ratio] 11.9 % Normal 11.5-15.0 [facility] Comment on above: Order Comment: Speci men Type: BLOOD SPECIMENOrdering Facility: [facility] Address: [address] [place] [address] Performed By: #### 5 7021-8 ####[facility] LABCLIA [id number] [place] [address] [place] Hematocrit (Bld) [Volume fraction] 41.8 % Normal 36.0-46.0 [facility] Comment on above: Order Comment: Speci men Type: BLOOD SPECIMENOrdering Facility: [facility] Address: [address] [place] [address] Performed By: #### 5 7021-8 ####[facility]CL[facility] [id number] [address] [id number], [place] [address] [place] Hemoglobin (Bld) [Mass/Vol] 14.1 g/dL Normal 11.5-15.5 [facility] Comment on above: Order Comment: Speci men Type: BLOOD SPECIMENOrdering Facility: [facility] Address: [address] [place] [address] Performed By: #### 5 7021-8 ####[facility]CL[facility] [id number] [place] [address] [place] Immature granulocytes (Bld) [#/Vol] 10*3/uL Normal <0.10 [facility] Comment on above: Order Comment: Speci men Type: BLOOD SPECIMENOrdering Facility: [facility] Address: [address] [place] [address] Performed By: #### 5 7021-8 ####[facility]CLIA [id number] [place] [address] [place] Immature granulocytes/100 WBC (Bld) 0.2 % Normal [facility] Comment on above: Order Comment: Speci men Type: BLOOD SPECIMENOrdering Facility: [facility] Address: [address] [place] [address] Performed By: #### 5 7021-8 ####[facility]CL[facility] [id number] [place] [address] [place] Lymphocytes (Bld) [#/Vol] 2.46 10*3/uL Normal 1.00-4.00 [facility] Comment on above: Order Comment: Speci men Type: BLOOD SPECIMENOrdering Facility: [facility] Address: [address] [place] [address] Performed By: #### 5 7021-8 ####[facility]CL[facility] [id number] [place] [address] [place] Lymphocytes/100 WBC (Bld) 36.9 % Normal [facility] Comment on above: Order Comment: Speci men Type: BLOOD SPECIMENOrdering Facility: [facility] Address: [address] [place] [address] Performed By: #### 5 7021-8 ####[facility] LABIA [id number] [place] [address] [place] MCH (RBC) [Entitic mass] 31.8 pg Normal 26.0-34.0 [facility] Comment on above: Order Comment: Speci men Type: BLOOD SPECIMENOrdering Facility: [facility] Address: [address] [place] [address] Performed By: #### 5 7021-8 ####[facility] LABIA [id number] [place] [address] [place] MCHC (RBC) [Mass/Vol] 33.7 g/dL Normal 30.5-36.0 [facility] Comment on above: Order Comment: Speci men Type: BLOOD SPECIMENOrdering Facility: [facility] Address: [address] [place] [address] Performed By: #### 5 7021-8 ####[facility] LABIA [id number] [place] [address] [place] MCV (RBC) [Entitic vol] 94.4 fL Normal 80.0-100.0 [facility] Comment on above: Order Comment: Speci men Type: BLOOD SPECIMENOrdering Facility: [facility] Address: [address] [place] [address] Performed By: #### 5 7021-8 ####[facility]CL[facility] [id number] [place] [address] [place] Monocytes (Bld) [#/Vol] 0.48 10*3/uL Normal <0.87 [facility] Comment on above: Order Comment: Speci men Type: BLOOD SPECIMENOrdering Facility: [facility] Address: [address] [place] [address] Performed By: #### 5 7021-8 ####[facility]CL[facility] [id number] [place] [address] [place] Monocytes/100 WBC (Bld) 7.2 % Normal [facility] Comment on above: Order Comment: Speci men Type: BLOOD SPECIMENOrdering Facility: [facility] Address: [address] [place] [address] Performed By: #### 5 7021-8 ####[facility]CLIA [id number] [place] [address] [place] Neutrophils (Bld) [#/Vol] 3.56 10*3/uL Normal 1.45-7.50 [facility] Comment on above: Order Comment: Speci men Type: BLOOD SPECIMENOrdering Facility: [facility] Address: [address] [place] [address] Performed By: #### 5 7021-8 ####[facility]CL[facility] [id number] [place] [address] [place] Neutrophils/100 WBC (Bld) 53.4 % Normal [facility] Comment on above: Order Comment: Speci men Type: BLOOD SPECIMENOrdering Facility: [facility] Address: [address] [place] [address] Performed By: #### 5 7021-8 ####[facility] LABIA [id number] [place] [address] [place] Nucleated RBC (Bld) [#/Vol] 10*3/uL Normal <0.01 [facility] Comment on above: Order Comment: Speci men Type: BLOOD SPECIMENOrdering Facility: [facility] Address: [address] [place] [address] Performed By: #### 5 7021-8 ####[facility]CL[facility] [id number] [place] [address] [place] Nucleated RBC/100 WBC (Bld) [Ratio] 0.0 /100 WBC Normal [facility] Comment on above: Order Comment: Speci men Type: BLOOD SPECIMENOrdering Facility: [facility] Address: [address] [place] [address] Performed By: #### 5 7021-8 ####[facility]CL[facility] [id number] [place] [address] [place] Platelet mean volume (Bld) [Entitic vol] 10.9 fL Normal 9.0-12.7 [facility] Comment on above: Order Comment: Speci men Type: BLOOD SPECIMENOrdering Facility: [facility] Address: [address] [place] [address] Performed By: #### 5 7021-8 ####[facility] LABIA [id number] [place] [address] [place] Platelets (Bld) [#/Vol] 211 10*3/uL Normal 150-400 [facility] Comment on above: Order Comment: Speci men Type: BLOOD SPECIMENOrdering Facility: [facility] Address: [address] [place] [address] Performed By: #### 5 7021-8 ####[facility]CL[facility] [id number] [place] [address] [place] RBC (Bld) [#/Vol] 4.43 10*6/uL Normal 3.90-5.20 [facility] Comment on above: Order Comment: Speci men Type: BLOOD SPECIMENOrdering Facility: [facility] Address: [address] [place] [address] Performed By: #### 5 7021-8 ####[facility]CL[facility] [id number] [place] [address] [place] WBC (Bld) [#/Vol] 6.66 10*3/uL Normal 3.70-11.00 [facility] Comment on above: Order Comment: Speci men Type: BLOOD SPECIMENOrdering Facility: [facility] Address: [address] [place] [address] Performed By: #### 5 7021-8 ####[facility]CLIA [id number] [place] [address] [place] Comprehensive metabolic 2000 panelon 01-07-2024 Albumin [Mass/Vol] 4.5 g/dL Normal 3.9-4.9 [facility] Comment on above: Order Comment: Speci men Type: BLOOD SPECIMENOrdering Facility: [facility] Address: [address] [place] [address] Performed By: #### 2 4323-8 ####[facility]CLIA [id number] [place] [address] [place] ALP [Catalytic activity/Vol] 49 U/L Normal 34-123 [facility] Comment on above: Order Comment: Speci men Type: BLOOD SPECIMENOrdering Facility: [facility] Address: [address] [place] [address] Performed By: #### 2 4323-8 ####[facility]CL[facility] [id number] [place] [address] [place] ALT [Catalytic activity/Vol] 21 U/L Normal 7-38 [facility] Comment on above: Order Comment: Speci men Type: BLOOD SPECIMENOrdering Facility: [facility] Address: [address] [place] [address] Performed By: #### 2 4323-8 ####[facility]CL[facility] [id number] [place] [address] [place] Anion gap [Moles/Vol] 21 mmol/L High 8-15 [facility] Comment on above: Order Comment: Speci men Type: BLOOD SPECIMENOrdering Facility: [facility] Address: [address] [place] [address] Performed By: #### 2 4323-8 ####[facility]CL[facility] [id number] [place] [address] [place] AST [Catalytic activity/Vol] 24 U/L Normal 13-35 [facility] Comment on above: Order Comment: Speci men Type: BLOOD SPECIMENOrdering Facility: [facility] Address: [address] [place] [address] Performed By: #### 2 4323-8 ####[facility] LABCLIA [id number] [place] [id number] [place] Bilirubin [Mass/Vol] 0.7 mg/dL Normal 0.2-1.3 [facility] Comment on above: Order Comment: Speci men Type: BLOOD SPECIMENOrdering Facility: [facility] Address: [address] [place] [address] Performed By: #### 2 4323-8 ####[facility]CL[facility] [id number] [place] [address] [place] Calcium [Mass/Vol] 9.1 mg/dL Normal 8.5-10.2 [facility] Comment on above: Order Comment: Speci men Type: BLOOD SPECIMENOrdering Facility: [facility] Address: [address] [place] [address] Performed By: #### 2 4323-8 ####[facility]CL[facility] [id number] [place] [address] [place] Chloride [Moles/Vol] 104 mmol/L Normal 98-107 [facility] Comment on above: Order Comment: Speci men Type: BLOOD SPECIMENOrdering Facility: [facility] Address: [address] [place] [address] Performed By: #### 2 4323-8 ####[facility]CLIA [id number] [place] [address] [place] CO2 [Moles/Vol] 14 mmol/L Low 22-30 [facility] Comment on above: Order Comment: Speci men Type: BLOOD SPECIMENOrdering Facility: [facility] Address: [address] [place] [address] Performed By: #### 2 4323-8 ####[facility]CLIA [id number] [place] [id number] [place] Creatinine [Mass/Vol] 0.83 mg/dL Normal 0.58-0.96 [facility] Comment on above: Order Comment: Sukumar bellamy Type: BLOOD SPECIMENOrdering Facility: [facility] Address: [address] [place] [address] Performed By: #### 2 4323-8 ####[facility] LABIA [id number] [place] [address] [place] Creatinine and Glomerular filtration rate.predicted panel (S/P/Bld) 95 mL/min/1.73m??? Normal >=60 [facility] Comment on above: Order Comment: Sukumar bellamy Type: BLOOD SPECIMENOrdering Facility: [facility] Address: [address] [place] [address] Result Comment: Rosalia mated Glomerular Filtration Rate [...] actual GFR. Performed By: #### 2 4323-8 ####[facility] LABIA [id number] [place] [address] [place] Glucose [Mass/Vol] 85 mg/dL Normal 74-99 [facility] Comment on above: Order Comment: Sukumar bellamy Type: BLOOD SPECIMENOrdering Facility: [facility] Address: [address] [place] [address] Result Comment: The [place] Diabetes Association (ADA) provides guidance for cutoff [...] Standards of Medical Care in Diabetes 2016, [place] [employer]. Diabetes Care. 2016.39(Suppl 1). Performed By: #### 2 4323-8 ####[facility] LABCLIA [id number] [place] [address] [place] Potassium [Moles/Vol] 4.1 mmol/L Normal 3.7-5.1 [facility] Comment on above: Order Comment: Speci men Type: BLOOD SPECIMENOrdering Facility: [facility] Address: [address] [place] [address] Performed By: #### 2 4323-8 ####[facility]CLIA [id number] [place] [address] [place] Protein [Mass/Vol] 7.1 g/dL Normal 6.3-8.0 [facility] Comment on above: Order Comment: Speci men Type: BLOOD SPECIMENOrdering Facility: [facility] Address: [address] [place] [address] Performed By: #### 2 4323-8 ####[facility]CL[facility] [id number] [place] [address] [place] Sodium [Moles/Vol] 139 mmol/L Normal 136-144 [facility] Comment on above: Order Comment: Speci men Type: BLOOD SPECIMENOrdering Facility: [facility] Address: [address] [place] [address] Performed By: #### 2 4323-8 ####[facility]CL[facility] [id number] [place] [address] [place] Urea nitrogen [Mass/Vol] 9 mg/dL Normal 7-21 [facility] Comment on above: Order Comment: Speci men Type: BLOOD SPECIMENOrdering Facility: [facility] Address: [address] [id number] Performed By: #### 2 4323-8 ####[facility]CLIA [id number] [id number] [address] [place] Eosinophils/100 WBC Auto (Bl d)on 01-07-2024 Eosinophils/100 WBC (Bld) 1.5 % [facility] Erythrocyte distribution wid th Auto (RBC) [Ratio]on 01-07-2024 Erythrocyte distribution width (RBC) [Ratio] 11.9 % 11.5-15.0 [facility] Hematocrit Auto (Bld) [Volum e fraction]on 01-07-2024 Hematocrit (Bld) [Volume fraction] 41.8 % 36.0-46.0 [facility] Hemoglobin [Mass/volume] in Bloodon 01-07-2024 Hemoglobin (Bld) [Mass/Vol] 14.1 g/dL 11.5-15.5 [facility] Laboratory - Chemistry and C hemistry - challengeon 01-07-2024 Albumin [Mass/Vol] 4.5 g/dL 3.9-4.9 [facility] ALP [Catalytic activity/Vol] 49 U/L 34-123 [facility] ALT [Catalytic activity/Vol] 21 U/L 7-38 [facility] AST [Catalytic activity/Vol] 24 U/L 13-35 [facility] Bilirubin [Mass/Vol] 0.7 mg/dL 0.2-1.3 [facility] Calcium [Mass/Vol] 9.1 mg/dL 8.5-10.2 [facility] Chloride [Moles/Vol] 104 mmol/L 98-107 [facility] CO2 [Moles/Vol] 14 mmol/L Low 22-30 [facility] Creatinine [Mass/Vol] 0.83 mg/dL 0.58-0.96 [facility] Glucose [Mass/Vol] 85 mg/dL 74-99 [facility] Comment on above: The [place] Diabete s Association (ADA) provides guidance for [...] Standards of Medical Care in Diabetes 2016, [place] Diabetes [employer]. Diabetes Care. 2016.39(Suppl 1). Potassium [Moles/Vol] 4.1 mmol/L 3.7-5.1 [facility] Sodium [Moles/Vol] 139 mmol/L 136-144 [facility] Urea nitrogen [Mass/Vol] 9 mg/dL 11-08 [facility] - Hematology and Cell countson 01-07-2024 Eosinophils (Bld) [#/Vol] 0.10 10*3/uL <0.46 [facility] Immature granulocytes/100 WBC (Bld) 0.2 % [facility] Leukocytes [#/volume] correc armaan for nucleated erythrocytes in Blood by Automated counon 01-07-2024 WBC corrected for nucl RBC Auto (Bld) [#/Vol] 6.66 k/uL 3.70-11.00 [facility] Lymphocytes Auto (Bld) [#/Vo l]on 01-07-2024 Lymphocytes (Bld) [#/Vol] 2.46 10*3/uL 1.00-4.00 [facility] Lymphocytes/100 WBC Auto (Bl d)on 01-07-2024 Lymphocytes/100 WBC (Bld) 36.9 % [facility] DIAGNOSTIC RTon 01-07-20 24 [facility] DIAGNOSTIC RT * * *Final Report* * * DATE OF EXAM: Jan 07 2024 10:19AM [facility] 0626 - [facility] DIAGNOSTIC RT / PROCEDURE REASON: Breast fibroadenoma, right * * * * Physician Interpretation * * * * RESULT: [address] [place] [id number] HISTORY: Patient is 33 years old and [...] breast tissue. Interpreting Radiologist: Terry August M.D. As400 Consultant: BISHOP Transcribe Date/Time: Jan 07 2024 9:53A Dictated by : CARLOS OLMEDO DO This examination was interpreted and the report reviewed and electronically signed by: TERRY AUGUST MD on Jan 07 2024 10:47AM EST [id number] Normal [facility] US LOC BREAST RTon 01-06 [facility] US LOC BREAST RT * * *Final Report* * * DATE OF EXAM: Jan 07 2024 10:12AM [facility] 0600 - [facility] US LOC BREAST RT / PROCEDURE REASON: Breast fibroadenoma, right * * * * Physician Interpretation * * * * RESULT: [address] [place] [address] HISTORY: 33 year old patient presents for [...] were present throughout the entire procedure. The executive assistant to general counsel radiologist was Carlos Olmedo DO. The executive assistant to general counsel radiologist administered local anesthesia and placed the [...] targeted area. Reflector placement/activation was verified with Code Official Check following the procedure. IMPRESSION: Site 1: Successful infrared activated electromagnetic reflector device placement for a mass in the right breast at 8 o'clock posterior depth 4-5 cm from the nipple with no apparent complications. A specimen radiograph is recommended. The specimen radiograph should include the Code Official reflector, the Hydromark open coil clip, and additional biopsy marking clip. Interpreting Radiologist: Terry August M.D. As400 Consultant: BISHOP Transcribe Date/Time: Jan 07 2024 9:50A Dictated by : CARLOS OLMEDO DO This examination was interpreted and the report reviewed and electronically signed by: TERRY AUGUST MD on Jan 07 2024 10:46AM EST [id number] Normal [facility] MCH Auto (RBC) [Entitic mass ]on 01-07-2024 MCH (RBC) [Entitic mass] 31.8 pg 26.0-34.0 [facility] MCHC Auto (RBC) [Mass/Vol]on 01-07-2024 MCHC (RBC) [Mass/Vol] 33.7 g/dL 30.5-36.0 [facility] MCV Auto (RBC) [Entitic vol] on 01-07-2024 MCV (RBC) [Entitic vol] 94.4 fL 80.0-100.0 [facility] Breast - right Diagnostic for implanton [...] breast tissue. Interpreting Radiologist: Terry August M.D. As400 Consultant: BISHOP Transcribe Date/Time: Jan 07 2024 9:53A Dictated by : CARLOS OLMEDO, DO This examination was interpreted and the report reviewed and electronically signed by: TERRY AUGUST MD on Jan 07 2024 10:47AM [facility] DIVISION OF RADIOLOGY * * *Final Report* * * DATE OF EXAM: Jan 07 2024 10:19AM [facility] 0626 - [facility] DIAGNOSTIC RT / PROCEDURE REASON: Breast fibroadenoma, right * * * * Physician Interpretation * * * * RESULT: [address] [place] [address] HISTORY: Patient is 33 years old and [...] obscure small masses. DIVISION OF RADIOLOGY Provider, [facility] - 01/07/2024 * * *Final Report* * * DATE OF EXAM: Jan 07 2024 10:19AM [facility] 0626 - [facility] DIAGNOSTIC RT / PROCEDURE REASON: Breast fibroadenoma, right * * * * Physician Interpretation * * * * RESULT: [address] [place] [address] HISTORY: Patient is 33 years old and [...] has dense breast tissue. Interpreting Radiologist: Terry M. August, M.D. As400 Consultant: BISHOP Transcridalton Date/Time: Jan 07 2024 9:53A Dictated by : CARLOS OLMEDO, DO This examination was interpreted and the report reviewed and electronically signed by: TERRY AUGUST MD on Jan 07 2024 10:47AM EST [facility] Radiology Study observation (narrative) [facility] Monocytes Auto (Bld) [#/Vol] on 01-07-2024 Monocytes (Bld) [#/Vol] 0.48 10*3/uL <0.87 [facility] Monocytes/100 WBC Auto (Bld) on 01-07-2024 Monocytes/100 WBC (Bld) 7.2 % [facility] Neutrophils Auto (Bld) [#/Vo l]on 01-07-2024 Neutrophils (Bld) [#/Vol] 3.56 10*3/uL 1.45-7.50 [facility] Neutrophils/100 WBC Auto (Bl d)on 01-07-2024 Neutrophils/100 WBC (Bld) 53.4 % [facility] No Panel InformationOrdered By: Ccf Provider on 01-07-2024 [facility] No Panel Informationon 01-06 Estimated GFR (CKD-EPI) 95 mL/min/1.73m??? >=60 [facility] Comment on above: Estimated Glomerular Filtration [...] Immature Granulocyte # (Auto) <0.03 k/uL <0.10 [facility] Nucleated RBC Auto (Bld) [#/ Vol]on 01-07-2024 Nucleated RBC (Bld) [#/Vol] 10*3/uL <0.01 [facility] Nucleated erythrocytes [Pres ence] in Blood by Automated counton 01-07-2024 Nucleated RBC Auto Ql (Bld) 0.0 /100{WBC} [facility] PT EDon 01-07-2024 PT ED HNO ID: [id number] Author: MASHA JOHNSTON Tech Service: ? Author [...] MATERIAL: Homegoing instructions REFERRAL (RECOMMENDATION): None Normal [facility] Platelet mean volume Auto (B ld) [Entitic vol]on 01-07-2024 Platelet mean volume (Bld) [Entitic vol] 10.9 fL 9.0-12.7 [facility] Platelets Auto (Bld) [#/Vol] on 01-07-2024 Platelets (Bld) [#/Vol] 211 10*3/uL 150-400 [facility] Protein [Mass/volume] in Ser um or Plasmaon 01-07-2024 Protein [Mass/Vol] 7.1 g/dL 6.3-8.0 [facility] RBC Auto (Bld) [#/Vol]on RBC (Bld) [#/Vol] 4.43 10*6/uL 3.90-5.20 [facility] Serum or plasma anion gap de terminationon 01-07-2024 Anion gap [Moles/Vol] 21 mmol/L High 8-15 [facility] US Guidance for localization of Breast - righton 01-07-2024 IMPRESSION: Site 1: Successful infrared activated electromagnetic reflector device placement for a mass in the right breast at 8 o'clock posterior depth 4-5 cm from the nipple with no apparent complications. A specimen radiograph is recommended. The specimen radiograph should include the Code Official reflector, the Hydromark open coil clip, and additional biopsy marking clip. Interpreting Radiologist: Terry August M.D. As400 Consultant: BISHOP Transcribe Date/Time: Jan 07 2024 9:50A Dictated by : CARLOS OLMEDO DO This examination was interpreted and the report reviewed and electronically signed by: TERRY AUGUST MD on Jan 07 2024 10:46AM [facility] DIVISION OF RADIOLOGY * * *Final Report* * * DATE OF EXAM: Jan 07 2024 10:12AM [facility] 0600 - [facility] LOC BREAST RT / PROCEDURE REASON: Breast fibroadenoma, right * * * * Physician Interpretation * * * * RESULT: [address] [place] [address] HISTORY: 33 year old patient presents for [...] were present throughout the entire procedure. The executive assistant to general counsel radiologist was Carlos Olmedo DO. The executive assistant to general counsel radiologist administered local anesthesia and placed the [...] targeted area. Reflector placement/activation was verified with Code Official Check following the procedure. DIVISION OF RADIOLOGY Provider, [facility] - 01/07/2024 * * *Final Report* * * DATE OF EXAM: Jan 07 2024 10:12AM [facility] 0600 - [facility] LOC BREAST RT / PROCEDURE REASON: Breast fibroadenoma, right * * * * Physician Interpretation * * * * RESULT: [address] [place] [address] HISTORY: 33 year old patient presents for [...] were present throughout the entire procedure. The executive assistant to general counsel radiologist was Carlos Olmedo DO. The executive assistant to general counsel radiologist administered local anesthesia and placed the [...] targeted area. Reflector placement/activation was verified with Code Official Check following the procedure. IMPRESSION IMPRESSION: Site 1: Successful infrared activated electromagnetic reflector device placement for a mass in the right breast at 8 o'clock posterior depth 4-5 cm from the nipple with no apparent complications. A specimen radiograph is recommended. The specimen radiograph should include the Code Official reflector, the Hydromark open coil clip, and additional biopsy marking clip. Interpreting Radiologist: Terry August M.D. As400 Consultant: BISHOP Transcribe Date/Time: Jan 07 2024 9:50A Dictated by : CARLOS OLMEDO, DO This examination was interpreted and the report reviewed and electronically signed by: TERRY AUGUST MD on Jan 07 2024 10:46AM [facility] Radiology Study observation (narrative) [facility] 01-06-2024 [facility] Telephone (PANQuidsiI) ----- SULLY ENRIQUEZ ([id number]) 1990 F Date Time Provider Department 01/06/24 [...] AC Thank you, should be ok. Best, Jackie Sutton MD Allergies As of Date: 01/06/2024 [...] Status:Closed by CAMILA RUSSO on 01/06/24 [facility] H[facility] PHYSICALon HISTORY PHYSICAL HNO ID: [id number] Author: CAMILA RUSSO PA-C Service: ? Author Type: Physician Casino Manager Type: H&P Filed: 01/06/2024 14:18 Note Text: [...] surgeon This is a virtual visit using Talking Layers video visit. It required patient-provider interaction for the medical decision making as documented below. REASON FOR VISIT: Sully Enriquez is a 33 year old female who is scheduled for Procedure(s): RIGHT LIV EXCISIONAL BIOPSY (Right) at the request of Dr. Jackie Sutton, Jackie Robins MD for consultation. My final recommendation [...] virtual visit. The visit was conducted using Talking Layers video visit. It required patient-provider interaction for the medical decision making as documented below. I have communicated my name and active licensure. The patient's identity and physical location were verified at the time of this visit. Either the patient or their legal front desk representative has been informed of the risks and benefits of and alternatives to treatment through a remote evaluation and consents to proceed with the evaluation re (more content not included)... Normal [facility] Bacteria [Presence] in Urine by AutomatedOrdered By: Mario Glasgow on 12-26-2023 Bacteria Auto Ql (U) Rare [HPF] None Seen [facility] Bilirubin Test strip Ql (U)O rdered By: Mario Glasgow on 12-26-2023 Bilirubin Ql (U) Negative Negative [facility] Color of Urine by AutoOrdere d By: Mario Glasgow on 12-26-2023 Color (U) Light-yellow Yellow [facility] Comment on above: Performed By: #### A DDONUAPLUS, CUU #### [address] Dipstick and Microscopicon 0 12-26-2023 Bacteria,Urine Rare Normal None Seen [facility] Comment on above: Performed By: #### A DDONUAPLUS, CUU #### [place] [address] [place] Bilirubin,Urine Negative Normal Negative [facility] Comment on above: Performed By: #### A DDONUAPLUS, CUU #### [address] [place] Yeast,Urine 2+ High None Seen [facility] Comment on above: Result Comment: PERF ORMED BY: [place] [address] PATHOLOGIST SOLDER MAKING SUPERVISOR LEV HERNÁNDEZ M.D. Performed By: #### A DDONUAPLUS, CUU #### [address] Glucose Ql (U) Normal Normal Normal [facility] Comment on above: Performed By: #### A DDONUAPLUS, CUU #### [address] Hyaline Casts,Urine None Normal 0-8 [facility] Comment on above: Performed By: #### A DDONUAPLUS, CUU #### [address] Mucus,Urine Rare Normal [facility] Comment on above: Performed By: #### A DDONUAPLUS, CUU #### [address] Nitrite,Urine Negative Normal Negative [facility] Comment on above: Performed By: #### A DDONUAPLUS, CUU #### [address] Occult Blood,Urine 1+ High Negative [facility] Comment on above: Result Comment: PERF ORMED BY: [place] [address] PATHOLOGIST SOLDER MAKING SUPERVISOR LEV HERNÁNDEZ M.D. Performed By: #### A DDONUAPLUS, CUU #### [address] Protein,Urine Negative Normal Negative [facility] Comment on above: Performed By: #### A DDONUAPLUS, CUU #### [address] RBC,Urine 10-19 High 0-4 [facility] Comment on above: Performed By: #### A DDONUAPLUS, CUU #### [address] Specificy [place],Urine 1.011 Normal 1.001-1.030 [facility] Comment on above: Performed By: #### A DDONUAPLUS, CUU #### [address] Squamous Epithelial Cell,Urine 1-2 Normal 0-2 [facility] Comment on above: Performed By: #### A DDONUAPLUS, CUU #### [address] Urobilinogen,Urine Normal Normal Normal [facility] Comment on above: Performed By: #### A DDONUAPLUS, CUU #### [facility] [address] WBC CLUMP, Urine Many High None Seen [facility] Comment on above: Performed By: #### A DDONUAPLUS, CUU #### [facility] [address] WBC,Urine Innumerable High 0-4 [facility] Comment on above: Performed By: #### A DDONUAPLUS, CUU #### [facility] [address] Epithelial cells.squamous [# /area] in Urine sediment by Automated countOrdered By: Mario Glasgow on 12-26-2023 Epithelial cells.squamous Auto (Urine sed) [#/Area] 1-2 [HPF] 0-2 [facility] Erythrocytes [#/area] in Uri ne sediment by Automated countOrdered By: Mario Glasgow on 12-26-2023 RBC Auto (Urine sed) [#/Area] 10-19 [HPF] High 0-4 [facility] Glucose [Mass/volume] in Uri ne by Test stripOrdered By: Mario Glasgow on 12-26-2023 Glucose Test strip (U) [Mass/Vol] Normal mg/dL Normal [facility] Hemoglobin Test strip Ql (U) Ordered By: Mario Glasgow on 12-26-2023 Hemoglobin Ql (U) 1+ High Negative [facility] Hyaline casts [#/area] in Ur ine sediment by Automated countOrdered By: Mario Glasgow on 12-26-2023 Hyaline casts Auto (Urine sed) [#/Area] None [LPF] 0-8 [facility] Ketones [Presence] in Urine by Test stripOrdered By: Mario Glasgow on 12-26-2023 Ketones Ql (U) Negative Negative [facility] Comment on above: Performed By: #### A DDONUAPLUS, CUU #### [address] Laboratory - Chemistry and C hemistry - challengeon 12-26-2023 Bilirubin Ql (U) Negative [facility] Glucose (U) [Mass/Vol] [facility] Ketones Ql (U) Negative [facility] pH (U) 5.5 [pH] [facility] Specific gravity (U) [Rel density] 1.010 [facility] Urobilinogen (U) [Mass/Vol] 0.2 mg/dL [facility] Laboratory - Microbiology an d Antimicrobial susceptibilityOrdered By: Mario Glasgow on 12-26-2023 Bacteria identified Cx Nom (U) Escherichia coli Abnormal [facility] Laboratory - Specimen inform ationon 12-26-2023 Appearance (U) cloudy [facility] Color (U) yellow [facility] Laboratory - Urinalysison Leukocyte esterase Test strip Ql (U) small [facility] Nitrite Ql (U) Negative [facility] Protein Ql (U) Negative [facility] Leukocyte clumps [Presence] in Urine by AutomatedOrdered By: Mairo Glasgow on 12-26-2023 Leukocyte clumps Auto Ql (U) Many [LPF] High None Seen [facility] Leukocyte esterase [Presence ] in Urine by Test stripOrdered By: Mario Glasgow on 12-26-2023 Leukocyte esterase Test strip Ql (U) 4+ High Negative [facility] Comment on above: Performed By: #### A DDONXAVI, CUU #### [facility] [address] Leukocytes [#/area] in Urine sediment by Automated countOrdered By: Mario Glasgow on 12-26-2023 WBC Auto (Urine sed) [#/Area] Innumerable [HPF] High 0-4 [facility] Mucus [Presence] in Urine by AutomatedOrdered By: Mario Glasgow on 12-26-2023 Mucus Auto Ql (U) Rare [LPF] [facility] Nitrite Test strip Ql (U)Ord ered By: Mario Glasgow on 12-26-2023 Nitrite Ql (U) Negative Negative [facility] No Panel Informationon 12-25 Urine Occult Blood Negative [facility] Protein Test strip (U) [Mass /Vol]Ordered By: Mario Glasgow on 12-26-2023 Protein (U) [Mass/Vol] Negative Negative [facility] Specific gravity Test strip (U) [Rel density]Ordered By: Mario Glasgow on 12-26-2023 Specific gravity (U) [Rel density] 1.011 1.001-1.030 [facility] Urine Cultureon 12-26-2023 Bacteria identified Cx Nom (U) ORGANISM: Escherichia coli (O:ESCCOL) [place] Count 75,000 Aerobic AUBREY Charge (NMIC56) SUSCEPTIBILITY [...] RESISTANT TO ALL B-LACTAM DRUGS. PERFORMED BY: [place] [address] [place] [address] PATHOLOGIST SOLDER MAKING SUPERVISOR LEV HERNÁNDEZ M.D. Normal [facility] Comment on above: Performed By: #### A PHILOMENA MARCUMU ####[facility] Urine appearanceOrdered By: Mario Glasgow on 12-26-2023 Appearance (U) Cloudy Abnormal Clear [facility] Comment on above: Performed By: #### A JOSSUE CUU #### [facility] [address] Urobilinogen Test strip (U) [Mass/Vol]Ordered By: Mario Glasgow on 12-26-2023 Urobilinogen (U) [Mass/Vol] Normal mg/dL Normal [facility] Yeast.budding [Presence] in Urine by Computer assisted methodOrdered By: Mario Glasgow on 12-26-2023 Yeast.budding Computer assisted Ql (U) 2+ [HPF] High None Seen [facility] pH of Urine by Test stripOrd ered By: Mario Glasgow on 12-26-2023 pH (U) 6.0 [pH] 5.0-9.0 [facility] Comment on above: Performed By: #### A PHILOMENA MARCUMU #### [facility] [address] Basophils Auto (Bld) [#/Vol] on 12-17-2023 Basophils (Bld) [#/Vol] 0.0 10 3/uL 0.0-0.1 [facility] Basophils/100 WBC Auto (Bld) on 12-17-2023 Basophils/100 WBC (Bld) 0.4 % 0.2-2.0 [facility] CONSULTon 12-17-2023 CONSULT SUBJECTIVE: Chief complaint: Back [...] Coordination: Finge (more content not included)... Normal [facility] EDNURSon 12-17-2023 EDNURS Call light, gown, wa rm blanket, pillow and pad provided. Spouse at bedside. Pts back appears mottled, spouse says it is from heating pad. Lead confirms Normal [facility] EDNURS Mode of arrival (squ ad #, walk in, police, etc): walk in w spouse Chief complaint(s): back pain, nausea,urinary incontinence Arrival Note (brief scenario, treatment CARE PROFESSIONAL, etc): pt by private auto from [place] [facility] for low back pain continuous with worsening past 2 weeks no injury. 8/10 and sharp. Urinary incontinence started yesterday along with nausea and 2 episodes of vomiting. Pt denies numbness or tingling. Took zanaflex at home which helped her sleep. Had T3 at [place] which helped with the pain. Arrives of 20 g lock in left arm. Pt comes with paperwork and lab results. Pt denies having this pain previously Normal [facility] EDPROVon 12-17-2023 EDPROV HPI Chief Complaint Patient presents with ??? Back Pain X 2 weeks ??? Nausea With vomit x 2. Onset was yesterday. ??? Urinary Incontinence Onset yesterday Pt transferred here by EMS from [facility] accepted by ETHAN Olivas who is on for spine. The concern is for cauda equina. Pt with evaluation for back pain. Pt with evaluation at [place] 1-2 weeks prior. Pt with chiropractor care [...] hx hyst in past. 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 CBC normal. ESR normal at [...] osteophytes. Pt didn't have imaging at chiropractor. [place] Coma Scale Score: 15 Patient History Past [...] I spoke with radiologist Dr Sanchez at [facility] to get approval for MRI to get called in. I spoke with safety technician to get cell technician called in for this imaging. [CS] 0456 Pt complaining about pain and nausea. Rn to reconcile meds. Pt with allergy to toradol. Pt with multiple narcotic and antispasm meds on home list. [CS] 7552 PT back from MRI. Pt with norco [...] with pt about being seen by his PA/IT PROGRAMMER ANALYST Jyotsna in about 10 minutes and he is on way to hospital and will review MRI imaging. [CS] 0654 I was back to talk with pt and visitor about my conversation with Dr Olivas. Male reports taht I thought that we were just coming here for the MRI and they were going to read it back in [place] . I explained process of transfer and [...] Acute ex (more content not included)... Normal [facility] Eosinophils/100 WBC Auto (Bl d)on 12-17-2023 Eosinophils/100 WBC (Bld) 1.2 % 0.9-7.0 [facility] Erythrocyte distribution wid th Auto (RBC) [Ratio]on 12-17-2023 Erythrocyte distribution width (RBC) [Ratio] 11.9 % 11.0-15.0 [facility] Estimated glomerular filtrat ion rate (GFR) non- Americanon 12-17-2023 GFR/1.73 sq M.predicted among non-blacks MDRD (S/P/Bld) [Vol rate/Area] mL/min/{1.73_m2} >=60 [facility] Hematocrit Auto (Bld) [Volum e fraction]on 12-17-2023 Hematocrit (Bld) [Volume fraction] 42.3 % 36.0-48.0 [facility] Hemoglobin [Mass/volume] in Bloodon 12-17-2023 Hemoglobin (Bld) [Mass/Vol] 14.4 g/dL 12.0-16.0 [facility] Laboratory - Chemistry and C hemistry - challengeon 12-17-2023 Calcium [Mass/Vol] 8.9 mg/dL 8.5-10.1 [facility] Chloride [Moles/Vol] 103 mmol/L 98-107 [facility] CO2 [Moles/Vol] 26.5 mmol/L 21.0-32.0 [facility] Creatinine [Mass/Vol] 0.94 mg/dL 0.55-1.02 [facility] GFR/1.73 sq M.predicted MDRD (S/P/Bld) [Vol rate/Area] mL/min/{1.73_m2} >=60 [facility] Glucose [Mass/Vol] 95 mg/dL 74-106 [facility] Potassium [Moles/Vol] 3.5 mmol/L 3.5-5.1 [facility] Sodium [Moles/Vol] 139 mmol/L 136-145 [facility] Urea nitrogen [Mass/Vol] 9.0 mg/dL 7.0-18.0 [facility] Urea nitrogen/Creatinine [Mass ratio] 9.6 mg/mg [facility] Laboratory - Hematology and Cell countson 12-17-2023 ESR (Bld) [Velocity] 17 mm/h <=20 [facility] Immature granulocytes/100 WBC (Bld) 0.3 % 0.0-0.5 [facility] Leukocytes [#/volume] correc armaan for nucleated erythrocytes in Blood by Automated counon 12-17-2023 WBC corrected for nucl RBC Auto (Bld) [#/Vol] 6.7 10 3/uL 4.0-11.0 [facility] Lymphocytes Auto (Bld) [#/Vo l]on 12-17-2023 Lymphocytes (Bld) [#/Vol] 2.7 10 3/uL 1.2-3.8 [facility] Lymphocytes/100 WBC Auto (Bl d)on 12-17-2023 Lymphocytes/100 WBC (Bld) 40.7 % 20.5-60.0 [facility] MCH Auto (RBC) [Entitic mass ]on 12-17-2023 MCH (RBC) [Entitic mass] 32.4 pg 26.7-34.0 [facility] MCHC Auto (RBC) [Mass/Vol]on 12-17-2023 MCHC (RBC) [Mass/Vol] 34.0 g/dL 29.9-35.2 [facility] MCV Auto (RBC) [Entitic vol] on 12-17-2023 MCV (RBC) [Entitic vol] 95.3 fL 81.0-99.0 [facility] MR LUMBAR SPINE W AND WO CON [...] report. Electronically signed: Robert Rivera MD. Normal [facility] Monocytes Auto (Bld) [#/Vol] on 12-17-2023 Monocytes (Bld) [#/Vol] 0.5 10 3/uL 0.3-0.8 [facility] Monocytes/100 WBC Auto (Bld) on 12-17-2023 Monocytes/100 WBC (Bld) 7.2 % 1.7-12.0 [facility] Neutrophils Auto (Bld) [#/Vo l]on 12-17-2023 Neutrophils (Bld) [#/Vol] 3.4 10 3/uL 1.4-6.5 [facility] Neutrophils/100 WBC Auto (Bl d)on 12-17-2023 Neutrophils/100 WBC (Bld) 50.2 % 43.0-75.0 [facility] No Panel Informationon 12-16 C-Reactive Protein, Quantitative <0.50 mg/dL <=0.50 [facility] Eosinophils # (Auto) 0.1 10 3/uL 0.0-0.7 [facility] Immature Granulocyte # (Auto) 0.02 10 3/uL 0.00-0.03 [facility] Platelet mean volume Auto (B ld) [Entitic vol]on 12-17-2023 Platelet mean volume (Bld) [Entitic vol] 10.7 fL 9.5-13.5 [facility] Platelets Auto (Bld) [#/Vol] on 12-17-2023 Platelets (Bld) [#/Vol] 218 10 3/uL 150-450 [facility] RBC Auto (Bld) [#/Vol]on RBC (Bld) [#/Vol] 4.44 10 6/uL 4.20-5.40 [facility] Serum or plasma anion gap de terminationon 12-17-2023 Anion gap [Moles/Vol] 13.0 mmol/L [facility] URINALYSIS WITH REFLEX CULTU REon 12-17-2023 BILIRUBIN, TOTAL PRESENCE IN URINE Negative Normal Negative [facility] Comment on above: Order Comment: Micro scopics not performed on urines with negative chemical reactions unless requested on original order. Performed By: #### L [id number] #### [facility] ([facility]AKER) [address] [place] [address] Clarity (U) Slightly Cloudy Abnormal Clear [facility] Comment on above: Order Comment: Micro scopics not performed on urines with negative chemical reactions unless requested on original order. Performed By: #### L [id number] #### [facility] ([facility]) [address] [place] [address] Color (U) Yellow Normal Yellow [facility] Comment on above: Order Comment: Micro scopics not performed on urines with negative chemical reactions unless requested on original order. Performed By: #### L [id number] #### [facility] ([facility]) [address] [place] [address] Glucose (U) [Mass/Vol] Negative Normal Negative [facility] Comment on above: Order Comment: Micro scopics not performed on urines with negative chemical reactions unless requested on original order. Performed By: #### L [id number] #### [facility] ([facility]ER) [address] [place] [address] HEMOGLOBIN PRESENCE IN URINE Negative Normal Negative [facility] Comment on above: Order Comment: Micro scopics not performed on urines with negative chemical reactions unless requested on original order. Performed By: #### L [id number] #### [facility] ([facility]ER) [address] [place] [address] Ketones Ql (U) Negative Normal Negative [facility] Comment on above: Order Comment: Micro scopics not performed on urines with negative chemical reactions unless requested on original order. Performed By: #### L [id number] #### [facility] ([facility]) [address] [place] [address] LEUKOCYTE ESTERASE PRESENCE IN URINE BY TEST STRIP Negative Normal Negative [facility] Comment on above: Order Comment: Micro scopics not performed on urines with negative chemical reactions unless requested on original order. Performed By: #### L [id number] #### [facility] ([facility]) [address] [place] [address] NITRITE PRESENCE IN URINE Negative Normal Negative [facility] Comment on above: Order Comment: Micro scopics not performed on urines with negative chemical reactions unless requested on original order. Performed By: #### L [id number] #### [facility] ([facility]) [address] [place] [address] pH (U) 5.0 [pH] Normal 5.0-8.0 [facility] Comment on above: Order Comment: Micro scopics not performed on urines with negative chemical reactions unless requested on original order. Performed By: #### L [id number] #### [facility] ([facility]) [address] [place] [address] Protein (U) [Mass/Vol] Negative Normal Negative Un [facility] Comment on above: Order Comment: Micro scopics not performed on urines with negative chemical reactions unless requested on original order. Performed By: #### L [id number] #### [facility] ([facility]) [address] [place] [address] Specific gravity (U) [Rel density] 1.016 Normal 1.015-1.020 [facility] Comment on above: Order Comment: Micro scopics not performed on urines with negative chemical reactions unless requested on original order. Performed By: #### L [id number] #### [facility] ([facility]) [address] [place] [address] DBT Breast - right diagnosti c for implanton 09-08-2023 * * *Final Report* * * DATE OF EXAM: Sep 08 2023 2:52PM FLASH 0629 - SAJI MARCO [place] HARVEY RT / PROCEDURE REASON: multiple diagnoses * * * * Physician Interpretation * * * * RESULT: #[id number] - SAJI DIAG W HARVEY RT #[id number] - [facility] US BIOPSY BREAST RT [...] Almanzar performed the entire procedure without an executive assistant to general counsel. Audible Time Out Time: 1420 Procedure Start [...] analysis. DIVISION OF RADIOLOGY Provider, [facility] - 09/08/2023 * * *Final Report* * * DATE OF EXAM: Sep 08 2023 2:52PM W 0629 - [facility] MARCO W HARVEY RT / PROCEDURE REASON: multiple diagnoses * * * * Physician Interpretation * * * * RESULT: #[id number] - [facility] MARCO W HARVEY RT #[id number] - [facility] US BIOPSY BREAST RT [...] Almanzar performed the entire procedure without an executive assistant to general counsel. Audible Time Out Time: 1420 Procedure Start [...] become available. Lea Almanzar M.D., jr/vikas:09/08/2023 16:24:26 Linoleum Mechanic(s): RT Mane(R)(M), The [facility] Multiple national specialty organizations have released breast cancer screening guidelines for women at average risk for developing breast cancer - guidelines that are based on both evidence and opinion, yet differ on when to start and how often to screen for breast cancer. With representation from Breast Imaging, Internal Medicine, Women's Health, Family Medicine, and Medical/Surgical Oncology, the [facility] has carefully reviewed the data and [...] their providers when to stop screening mammograms. [id number] Consultant: Vikas Transcribe Date/Time: Sep 08 2023 2:52P Dictated by : LEA ALMANZAR MD This examination was interpreted and the report reviewed and electronically signed by: LEA ALMANZAR MD on Sep 08 2023 4:24PM EST [facility] No Panel Informationon 09-07 IMPRESSION: ULTRASOU ND GUIDED BIOPSY Ultrasound guided biopsy of the 2 cm mass in the right breast at 8 o'clock 4 cm from the nipple with placement of a clip was successful with no apparent post procedure complications. Waiting for pathology results. A final report will be issued when these become available. Lea Almanzar M.D., jr/vikas:09/08/2023 16:24:26 Linoleum Mechanic(s): RT Mane(R)(M), [facility] Multiple national specialty organizations have released breast cancer screening guidelines for women at average risk for developing breast cancer - guidelines that are based on both evidence and opinion, yet differ on when to start and how often to screen for breast cancer. With representation from Breast Imaging, Internal Medicine, Women's Health, Family Medicine, and Medical/Surgical Oncology, the [facility] has carefully reviewed the data and [...] their providers when to stop screening mammograms. [id number] Consultant: Vikas Transcribe Date/Time: Sep 08 2023 2:52P Dictated by : LEA ALMANZAR MD This examination was interpreted and the report reviewed and electronically signed by: LEA ALMANZAR MD on Sep 08 2023 4:24PM [facility] DIVISION OF RADIOLOGY Radiology Study observation (narrative) [facility] Panel InformationOrdered By: Cc Provider on 09-08-2023 [facility] US Guidance for biopsy of Br east - righton 09-08-2023 * * *Final Report* * * DATE OF EXAM: Sep 08 2023 2:52PM [facility] 0598 - [facility] US BIOPSY BREAST RT / PROCEDURE REASON: multiple diagnoses * * * * Physician Interpretation * * * * RESULT: #[id number] - [facility] MARCO W HARVEY RT #[id number] - [facility] US BIOPSY BREAST RT [...] Almanzar performed the entire procedure without an executive assistant to general counsel. Audible Time Out Time: 1420 Procedure Start [...] analysis. DIVISION OF RADIOLOGY Provider, [facility] - 09/08/2023 * * *Final Report* * * DATE OF EXAM: Sep 08 2023 2:52PM [facility] 0598 - [facility] US BIOPSY BREAST RT / PROCEDURE REASON: multiple diagnoses * * * * Physician Interpretation * * * * RESULT: #[id number] - [facility] MARCO W HARVEY RT #[id number] - [facility] US BIOPSY BREAST RT [...] Almanzar performed the entire procedure without an executive assistant to general counsel. Audible Time Out Time: 1420 Procedure Start [...] become available. Lea Almanzar M.D., jr/vikas:09/08/2023 16:24:26 Linoleum Mechanic(s): RT Mane(R)(M), The [facility] Multiple national specialty organizations have released breast cancer screening guidelines for women at average risk for developing breast cancer - guidelines that are based on both evidence and opinion, yet differ on when to start and how often to screen for breast cancer. With representation from Breast Imaging, Internal Medicine, Women's Health, Family Medicine, and Medical/Surgical Oncology, the [facility] has carefully reviewed the data and [...] their providers when to stop screening mammograms. As400 Consultant: Vikas Transcribe Date/Time: Sep 08 2023 2:52P Dictated by : LEA ALMANZAR MD This examination was interpreted and the report reviewed and electronically signed by: LEA ALMANZAR MD on Sep 08 2023 4:24PM EST [facility] Laboratory - Chemistry and C hemistry - challengeon 09-02-2023 Free T4 [Mass/Vol] 0.98 ng/dL 0.76-1.46 [facility] TSH Qn 3.388 m[IU]/L 0.358-3.740 [facility] No Panel Informationon 09-01 Free Triiodothyronine 2.79 pg/mL 2.18-3.98 [facility] US Breast - right limitedon 08-07-2023 [facility] Basophils Auto (Bld) [#/Vol] on 07-25-2023 Basophils (Bld) [#/Vol] 0.0 10 3/uL 0.0-0.1 [facility] Basophils/100 WBC Auto (Bld) on 07-25-2023 Basophils/100 WBC (Bld) 0.3 % 0.2-2.0 [facility] Eosinophils/100 WBC Auto (Bl d)on 07-25-2023 Eosinophils/100 WBC (Bld) 0.5 % 0.9-7.0 [facility] Erythrocyte distribution wid th Auto (RBC) [Ratio]on 07-25-2023 Erythrocyte distribution width (RBC) [Ratio] 12.0 % 11.0-15.0 [facility] Estimated glomerular filtrat ion rate (GFR) non- Americanon 07-25-2023 GFR/1.73 sq M.predicted among non-blacks MDRD (S/P/Bld) [Vol rate/Area] mL/min/{1.73_m2} >=60 [facility] Globulin Calc (S) [Mass/Vol] on 07-25-2023 Globulin (S) [Mass/Vol] 3.4 g/dL [facility] HCG ( test) IA.rapi d Ql (U)on 07-25-2023 Beta HCG ( test) Ql (U) Negative NEGATIVE [facility] Hematocrit Auto (Bld) [Volum e fraction]on 07-25-2023 Hematocrit (Bld) [Volume fraction] 44.2 % 36.0-48.0 [facility] Hemoglobin [Mass/volume] in Bloodon 07-25-2023 Hemoglobin (Bld) [Mass/Vol] 14.5 g/dL 12.0-16.0 [facility] Laboratory - Chemistry and C hemistry - challengeon 07-25-2023 Albumin [Mass/Vol] 4.0 g/dL 3.4-5.0 [facility] ALP [Catalytic activity/Vol] 61 U/L 46-116 [facility] ALT [Catalytic activity/Vol] 25 U/L 14-59 [facility] AST [Catalytic activity/Vol] 13 U/L 15-37 [facility] Bilirubin [Mass/Vol] 0.6 mg/dL 0.2-1.0 [facility] Calcium [Mass/Vol] 8.8 mg/dL 8.5-10.1 [facility] Chloride [Moles/Vol] 103 mmol/L 98-107 [facility] CO2 [Moles/Vol] 24.0 mmol/L 21.0-32.0 [facility] Creatinine [Mass/Vol] 0.88 mg/dL 0.55-1.02 [facility] GFR/1.73 sq M.predicted MDRD (S/P/Bld) [Vol rate/Area] mL/min/{1.73_m2} >=60 [facility] Glucose [Mass/Vol] 99 mg/dL 74-106 [facility] Lipase [Catalytic activity/Vol] 23.0 U/L 16.0-77.0 [facility] Potassium [Moles/Vol] 3.9 mmol/L 3.5-5.1 [facility] Protein [Mass/Vol] 7.4 g/dL 6.4-8.2 [facility] Sodium [Moles/Vol] 138 mmol/L 136-145 [facility] Urea nitrogen [Mass/Vol] 10.0 mg/dL 7.0-18.0 [facility] Urea nitrogen/Creatinine [Mass ratio] 11.4 mg/mg [facility] Laboratory - Hematology and Cell countson 07-25-2023 Immature granulocytes/100 WBC (Bld) 0.3 % 0.0-0.5 [facility] Laboratory - Microbiology an d Antimicrobial susceptibilityon 07-25-2023 SARS-CoV-2 (COVID-19) RNA AZ+probe Ql (Unsp spec) Negative NEGATIVE [facility] Comment on above: This test has [...] Auto (Bld) [#/Vol] 11.0 10 3/uL 4.0-11.0 [facility] Lymphocytes Auto (Bld) [#/Vo l]on 07-25-2023 Lymphocytes (Bld) [#/Vol] 0.8 10 3/uL 1.2-3.8 [facility] Lymphocytes/100 WBC Auto (Bl d)on 07-25-2023 Lymphocytes/100 WBC (Bld) 7.5 % 20.5-60.0 [facility] MCH Auto (RBC) [Entitic mass ]on 07-25-2023 MCH (RBC) [Entitic mass] 31.6 pg 26.7-34.0 [facility] MCHC Auto (RBC) [Mass/Vol]on 07-25-2023 MCHC (RBC) [Mass/Vol] 32.8 g/dL 29.9-35.2 [facility] MCV Auto (RBC) [Entitic vol] on 07-25-2023 MCV (RBC) [Entitic vol] 96.3 fL 81.0-99.0 [facility] Monocytes Auto (Bld) [#/Vol] on 07-25-2023 Monocytes (Bld) [#/Vol] 0.4 10 3/uL 0.3-0.8 [facility] Monocytes/100 WBC Auto (Bld) on 07-25-2023 Monocytes/100 WBC (Bld) 3.9 % 1.7-12.0 [facility] Neutrophils Auto (Bld) [#/Vo l]on 07-25-2023 Neutrophils (Bld) [#/Vol] 9.7 10 3/uL 1.4-6.5 [facility] Neutrophils/100 WBC Auto (Bl d)on 07-25-2023 Neutrophils/100 WBC (Bld) 87.5 % 43.0-75.0 [facility] No Panel Informationon 07-24 Bedside Influenza Type A Antigen Negative [facility] Comment on above: Negative for Flu A p rotein antigen. Infection due to Flu Acannot be ruled out. Flu A antigen in the sample may bebelow the detection limit of the test. Bedside Influenza Type B Antigen Negative [facility] Comment on above: Negative for Flu B p rotein antigen. Infection due to Flu Bcannot be ruled out. Flu B antigen in the sample may bebelow the detection limit of the test. Eosinophils # (Auto) 0.1 10 3/uL 0.0-0.7 [facility] Immature Granulocyte # (Auto) 0.03 10 3/uL 0.00-0.03 [facility] Platelet mean volume Auto (B ld) [Entitic vol]on 07-25-2023 Platelet mean volume (Bld) [Entitic vol] 10.4 fL 9.5-13.5 [facility] Platelets Auto (Bld) [#/Vol] on 07-25-2023 Platelets (Bld) [#/Vol] 194 10 3/uL 150-450 [facility] RBC Auto (Bld) [#/Vol]on RBC (Bld) [#/Vol] 4.59 10 6/uL 4.20-5.40 [facility] Serum or plasma albumin/glob ulin mass ratioon 07-25-2023 Albumin/Globulin [Mass ratio] 1.2 {ratio} [facility] Serum or plasma anion gap de terminationon 07-25-2023 Anion gap [Moles/Vol] 14.9 mmol/L [facility] Mitchel 07-07-2023 L Specimen: [id number] Received: 07/07/23 Status: ALEJANDRA Marvin Num: [id number] Spec Type: Surgical Subm Dr: Pablo Lindo II, MD Tissues: A BREAST CORE NO CALCS (RT BREAST TISSUE) Procedures: HE/2, Gross/Micro L4, AE1-AE3, CK5 6 Age/ Patient Sex Location Account Attending Physician ZoeSully 33/F WIUL [id number] Lucero Belle DO SPEC NUM: RECD: 07/07/23 STATUS: ALEJANDRA TRAVIS NUM: [id number] MEGAN: 07/07/[address]: Pablo Lindo II, MD ENTERED: 07/07/[address] [facility] [address]: Lucero Belle DO SPEC TYPE: Surgical [...] Time: 0.08 Formalin Fixation Time: 6.62 Specimen: Received: 07/07/23 Status: ALEJANDRA Marvin Num: [id number] Spec Type: Surgical Subm Dr: Pablo Lindo II, MD Tissues: A BREAST CORE NO CALCS (RT BREAST TISSUE) Procedures: HE/2, Gross/Micro L4, AE1-AE3, CK5 6 Patient: Sully Enriquez [id number] (Continued) Specimen: [id number] Received: 07/07/23 (Continued) Signed (signature on file) Mireya Garcia MD 07/09/231648 Specimen: Received: 07/07/23 Status: ALEJANDRA Travis Num: [id number] Spec Type: Surgical Subm Dr: Pablo Lindo II, MD Tissues: A BREAST CORE NO CALCS (RT BREAST TISSUE) Procedures: HE/2, Gross/Micro L4, AE1-AE3, CK5 6 Patient: Sully Enriquez [id number] (Continued) Specimen: Received: 07/07/23 (Continued) CPT Codes 69297 Specimen: Received: 07/07/23 Status: ALEJANDRA Travis Num: [id number] Spec Type: Surgical Subm Dr: Pablo Lindo II, MD Tissues: A BREAST CORE NO CALCS (RT BREAST TISSUE) Procedures: HE/2, Gross/Micro L4, AE1-AE3, CK5 6 Patient: Sully Enriquez [id number] (Continued) Signed (signature on file) Mireya Garcia MD 07/09/23 1649 Normal [facility] US breast ndl core biopsy RT on 07-07-2023 US breast ndl core biopsy RT [facility] [address] [place] [address] Ultrasound Report Signed Patient: Sully Enriquez MR#: [id number] : 1990 Acct:[id number] Age/Sex: 33 / F ADM Date: 07/07/23 Loc: [facility] Room: Type: [facility] Attending Dr: Lucero Belle DO Ordering Provider: Lucero Belle DO Date of Service: 07/07/23 US/US breast ndl core biopsy RT: [id number] ([id number]) MM/MM post biopsy RT w/CAD: POST U/S BX WITH CLIP Copies to: Lucreo Belle DO ADDENDUM Final pathology: Fibrocystic change. [...] of the right breast was performed by cardiac catheterization technologist as well as myself. At the [...] 8:00 position were performed using a 12-gauge HighGround vacuum-assisted core biopsy needle under ultrasound guidance. [...] 1155 Signed By: 07/10/23 0836 Normal [facility] Alanine aminotransferase [En zymatic activity/volume] in Serum or PlasmaOrdered By: Bhanu Alvarez on 06-03-2023 ALT [Catalytic activity/Vol] 19 U/L Normal 7-52 [facility] Comment on above: Order Comment: Hemol yzed-requested redraw @ 1442. MLG Performed By: #### C MP, PRL, CBC ####[facility] [id number] [place] [id number] [facility] Albumin [Mass/volume] in Ser um or Plasma by Bromocresol green (BCG) dye binding methoOrdered By: Bhanu Alvarez on 06-03-2023 Albumin BCG dye [Mass/Vol] 4.6 g/dL 3.5-5.7 [facility] Alkaline phosphatase [Enzyma tic activity/volume] in Serum or PlasmaOrdered By: Bhanu Alvarez on 06-03-2023 ALP [Catalytic activity/Vol] 46 U/L Normal 34-104 [facility] Comment on above: Order Comment: Hemol yzed-requested redraw @ 1442. MLG Performed By: #### C MP, PRL, CBC ####[place] [id number] Amphetamine Screen Ql (U)Ord ered By: Bhanu Alvarez on 06-03-2023 Amphetamines Ql (U) Negative Negative [facility] Aspartate aminotransferase [ Enzymatic activity/volume] in Serum or PlasmaOrdered By: Bhanu Alvarez on 06-03-2023 AST [Catalytic activity/Vol] 14 U/L Normal 13-39 [facility] Comment on above: Order Comment: Hemol yzed-requested redraw @ 1442. MLG Performed By: #### C MP, PRL, CBC ####[address] Automated basophil %Ordered By: Bhanu Alvarez on 06-03-2023 Basophils/100 WBC (Bld) 0.6 % Normal . [facility] Comment on above: Performed By: #### C MP, PRL, CBC ####[address] Automated basophil countOrde red By: Bhanu Alvarez on 06-03-2023 Basophils (Bld) [#/Vol] 0.0 10*3/uL Normal 0.0-0.2 [facility] Comment on above: Result Comment: PERF ORMED BY: [facility] [address] [place] [id number] PATHOLOGIST SOLDER MAKING SUPERVISOR LEV HERNÁNDEZ M.D. Performed By: #### C MP, PRL, CBC ####[place] [id number] [facility] Automated blood monocyte cou ntOrdered By: Bhanu Alvarez on 06-03-2023 Monocytes (Bld) [#/Vol] 0.4 10*3/uL Normal 0.0-0.8 [facility] Comment on above: Performed By: #### C MP, PRL, CBC ####[address] Automated eosinophil %Ordere d By: Bhanu Alvarez on 06-03-2023 Eosinophils/100 WBC (Bld) 2.1 % Normal . [facility] Comment on above: Performed By: #### C MP, PRL, CBC ####[address] Automated eosinophil countOr dered By: Bhanu Alvarez on 06-03-2023 Eosinophils (Bld) [#/Vol] 0.1 10*3/uL Normal 0.0-0.45 [facility] Comment on above: Performed By: #### C MP, PRL, CBC ####[address] Automated monocyte %Ordered By: Bhanu Alvarez on 06-03-2023 Monocytes/100 WBC (Bld) 6.5 % Normal . [facility] Comment on above: Performed By: #### C MP, PRL, CBC ####[address] Automated neutrophil %Ordere d By: Bhanu Alvarez on 06-03-2023 Neutrophils/100 WBC (Bld) 52.8 % Normal . [facility] Comment on above: Performed By: #### C MP, PRL, CBC ####[address] Automated urine color determ inationOrdered By: Bhanu Alvarez on 06-03-2023 Color (U) Yellow Normal Yellow [facility] Comment on above: Order Comment: Name Collection Type:: Clean-Voided Midstream Performed By: #### U A, UHCG, URDS #### [address] Barbiturates [Presence] in U rine by Screen methodOrdered By: Bhanu Alvarez on 06-03-2023 Barbiturates Screen Ql (U) Negative Negative [facility] Benzodiazepines Screen Ql (U )Ordered By: Bhanu Alvarez on 06-03-2023 Benzodiazepines Ql (U) Positive Negative [facility] Benzoylecgonine [Presence] i n Urine by Screen methodOrdered By: Bhanu Alvarez on 06-03-2023 Benzoylecgonine Screen Ql (U) Negative Negative [facility] Bilirubin Test strip Ql (U)O rdered By: Bhanu Alvarez on 06-03-2023 Bilirubin Ql (U) Negative Negative [facility] Bilirubin.total [Mass/volume ] in Serum or PlasmaOrdered By: Bhanu Alvarez on 06-03-2023 Bilirubin [Mass/Vol] 0.4 mg/dL Normal 0.3-1.0 [facility] Comment on above: Order Comment: Hemol yzed-requested redraw @ 1442. MLG Performed By: #### C MP, PRL, CBC ####[facility] Iyx[address] angio chest PE protocolon 06-03-2023 CT angio chest PE protocol [facility] [address] [place] [address] CT Scan Report Signed Patient: Sully Enriquez MR#: [id number] : 1990 Acct:[id number] Age/Sex: 33 / F ADM Date: 06/03/23 Loc: ER Room: Type: [facility] ER Attending Dr: Copies to: Bhanu [...] PROCESS. Impression dictated by: Luis Turner Jr., SumayaOHernandez06/03/2023 5:48 PM Dictation Location: [place] [address] Transcribed By: [facility] 06/03/231747 Dictated By: Luis Turner Jr, DO 06/03/231746 Signed By: 06/03/231747 Normal [facility] Calcium [Mass/volume] in Ser um or PlasmaOrdered By: Bhanu Alvarez on 06-03-2023 Calcium [Mass/Vol] 9.5 mg/dL Normal 8.6-10.3 [facility] Comment on above: Order Comment: Hemol yzed-requested redraw @ 1442. MLG Performed By: #### C MP, PRL, CBC ####[facility] [id number] [place] [id number] [facility] Cannabinoids [Presence] in U rine by Screen methodOrdered By: Bhanu Alvarez on 06-03-2023 Cannabinoids Screen Ql (U) Negative Negative [facility] Comment on above: These are unconfirme d results and should not be used for legal purposes. Drug Cut-Off Concentration: AMPH 1000 ng/mL WILIAN 200 ng/mL LESLY 200 ng/mL COCM 300 ng/mL OP 300 ng/mL PCP 25 ng/mL THC 20 ng/mL Carbon dioxide, total [Moles /volume] in Serum or PlasmaOrdered By: Bhanu Alvarez on 06-03-2023 CO2 [Moles/Vol] 22.4 mmol/L Normal 21.0-31.0 [facility] Comment on above: Order Comment: Hemol yzed-requested redraw @ 1442. MLG Performed By: #### C MP, PRL, CBC ####[place] [id number] Chloride [Moles/volume] in S juan carlos or PlasmaOrdered By: Bhanu Alvarez on 06-03-2023 Chloride [Moles/Vol] 108 mmol/L High 98-107 [facility] Comment on above: Order Comment: Hemol yzed-requested redraw @ 1442. MLG Performed By: #### C MP, PRL, CBC ####[address] Complete Blood Count Auto Di ffon 06-03-2023 Mean Corpuscular HGB Conc 33.9 g/dL Normal 32.0-35.0 [facility] Comment on above: Performed By: #### C MP, PRL, CBC ####[address] Monocytes/100 WBC (Bld) 18.41 % Normal 0.00-20.00 [facility] Comment on above: Performed By: #### C MP, PRL, CBC ####[address] NRBC% 0.0 /100{WBC} Normal 0-0.5 [facility] Comment on above: Performed By: #### C MP, PRL, CBC ####[address] Comprehensive Metabolic Pane mitchel 06-03-2023 Albumin [Mass/Vol] 4.6 g/dL Normal 3.5-5.7 [facility] Comment on above: Order Comment: Hemol yzed-requested redraw @ 1442. MLG Performed By: #### C MP, PRL, CBC ####[address] Creatinine Clr Calc Pharmacy 110.22 Normal [facility] Comment on above: Order Comment: Hemol yzed-requested redraw @ 1442. MLG Performed By: #### C MP, PRL, CBC ####[address] GFR/1.73 sq M.predicted MDRD (S/P/Bld) [Vol rate/Area] mL/min/{1.73_m2} Normal [facility] Comment on above: Order Comment: Hemol yzed-requested redraw @ 1442. MLG Performed By: #### C MP, PRL, CBC ####[facility] Creatinine [Mass/volume] in Serum or PlasmaOrdered By: Bhanu Alvarez on 06-03-2023 Creatinine [Mass/Vol] 0.86 mg/dL Normal 0.60-1.20 [facility] Comment on above: Order Comment: Hemol yzed-requested redraw @ 1442. MLG Performed By: #### C MP, PRL, CBC ####[facility] D-Dimer High Sensitivityon 0 06-03-2023 D-Dimer High Sensitivity 282 ng/mL High 0-243 [facility] Comment on above: Result [...] coagulation studies. Please contact the laboratory at [phone] for redraw instructions. PERFORMED BY: [facility] [address] [place] [address] PATHOLOGIST SOLDER MAKING SUPERVISOR LEV HERNÁNDEZ M.D. Performed By: #### D DIMER #### [facility] [address] Drug Screen,Urineon 06-03-19 24 Amphetamine Screen,Urine Negative Normal Negative [facility] Comment on above: Performed By: #### U A, UHCG, URDS #### [address] Barbiturate Screen,Urine Negative Normal Negative [facility] Comment on above: Performed By: #### U A, UHCG, URDS #### [address] Benzodiazepines Screen,Urine Positive High Negative [facility] Comment on above: Performed By: #### U A, UHCG, URDS #### [address] Cannabinoid Screen,Urine Negative Normal Negative [facility] Comment on above: Result Comment: Thes e are unconfirmed results and should not be used for legal purposes. Drug Cut-Off Concentration: AMPH 1000 ng/mL WILIAN 200 ng/mL LESLY 200 ng/mL COCM 300 ng/mL OP 300 ng/mL PCP 25 ng/mL THC 20 ng/mL PERFORMED BY: [place] [address] PATHOLOGIST SOLDER MAKING SUPERVISOR LEV HERNÁNDEZ M.D. Performed By: #### U A, UHCG, URDS #### [address] Cocaine Screen,Urine Negative Normal Negative [facility] Comment on above: Performed By: #### U A, UHCG, URDS #### [place] [address] [place] Opiate Screen,Urine Negative Normal Negative [facility] Comment on above: Performed By: #### U A, UHCG, URDS #### [place] [address] [place] Phencyclidine Screen,Urine Negative Normal Negative [facility] Comment on above: Performed By: #### U A, UHCG, URDS #### [address] ECG 12 lead ECGon 06-03-2023 ECG 12 lead ECG [facility] [place] [address] [place] [address] Electrocardiograph Report Signed Patient: Sully Enriquez MR#: [id number] : 1990 Acct:[id number] Age/Sex: 33 / F ADM Date: 06/03/23 Loc: ER Room: Type: [facility] ER Attending Dr: Ordering Provider: Bhanu [...] By Jose Cade DO 1547 Normal [facility] ECG 12 lead ECG [facility] [place] [address] Electrocardiograph Report Signed Patient: Sully Enriquez MR#: [id number] : 1990 Acct:[id number] Age/Sex: 33 / F ADM Date: 06/03/23 Loc: ER Room: Type: [facility] ER Attending Dr: Ordering Provider: Bhanu [...] By Jose Cade DO 1547 Normal [facility] Erythrocyte distribution wid th [Ratio] by Automated countOrdered By: Bhanu Alvarez on 06-03-2023 Erythrocyte distribution width (RBC) [Ratio] 12.5 % Normal 11.9-15.3 [facility] Comment on above: Performed By: #### C MP, PRL, CBC ####[facility] [id number] Erythrocytes [#/volume] in B lood by Automated countOrdered By: Bhanu Alvarez on 06-03-2023 RBC (Bld) [#/Vol] 4.42 10*6/uL Normal 3.60-5.00 [facility] Comment on above: Performed By: #### C MP, PRL, CBC ####[facility] [id number] Fibrin D-dimer [Presence] in Platelet poor plasma by Latex agglutinationOrdered By: Bhanu Alvarez on 06-03-2023 Fibrin D-dimer LA Ql (PPP) 282 ng/mL 0-243 [facility] Comment on above: The reference range [...] coagulation studies. Please contact the laboratory at [phone] for redraw instructions. Glucose [Mass/volume] in Ser um or PlasmaOrdered By: Bhanu Alvarez on 06-03-2023 Glucose [Mass/Vol] 102 mg/dL High 70-100 [facility] Comment on above: ADA recommended refe rence rangeRandom Glucose Reference Range is dependent on time and content of last meal. Glucose of more than 200 mg/dL in a nonstressed, ambulatory subject supports the diagnosis of Diabetes Mellitus. Order Comment: Adithya xiong redraw @ 1442. MLG Result Comment: [place] om Glucose Reference Range is dependent on time and content of last meal. Glucose of more than 200 mg/dL in a nonstressed, ambulatory subject supports the diagnosis of Diabetes Mellitus. ADA recommended reference range Performed By: #### C MP, PRL, CBC ####[facility] HCG ( test) IAjolene d Ql (U)Ordered By: Bhanu Alvarez on 06-03-2023 HCG ( test) Ql (U) Negative [facility] HCG,Urineon 06-03-2023 Beta HCG ( test) Ql (U) Negative Normal [facility] Comment on above: Order Comment: Name Collection Type:: Clean-Voided Midstream Result Comment: PERF ORMED BY: [facility] [address] [place] [address] PATHOLOGIST SOLDER MAKING SUPERVISOR LEV HERNÁNDEZ M.D. Performed By: #### U A, CG, URDS #### [address] Hematocrit [Volume Fraction] of Blood by Automated countOrdered By: Bhanu Alvarez on 06-03-2023 Hematocrit (Bld) [Volume fraction] 41.5 % Normal 34.0-46.4 [facility] Comment on above: Performed By: #### C MP, PRL, CBC ####[place] [address] [address] Hemoglobin [Mass/volume] in BloodOrdered By: Bhanu Alvarez on 06-03-2023 Hemoglobin (Bld) [Mass/Vol] 14.1 g/dL Normal 11.8-15.4 [facility] Comment on above: Performed By: #### C MP, PRL, CBC ####[place] [id number] [address] Ketones Auto test strip (U) [Mass/Vol]Ordered By: Bhanu Alvarez on 06-03-2023 Ketones (U) [Mass/Vol] Negative Negative [facility] Leukocytes [#/volume] correc armaan for nucleated erythrocytes in Blood by Automated counOrdered By: Bhanu Alvarez on 06-03-2023 WBC corrected for nucl RBC Auto (Bld) [#/Vol] 6.8 10*3/uL 3.8-11.6 [facility] Leukocytes [#/volume] in Blo od by Automated countOrdered By: Bhanu Alvarez on 06-03-2023 WBC (Bld) [#/Vol] 6.8 10*3/uL Normal 3.8-11.6 [facility] Comment on above: Performed By: #### C MP, PRL, CBC ####[address] Lymphocytes [#/volume] in Bl ood by Automated countOrdered By: Bhanu Alvarez on 06-03-2023 Lymphocytes (Bld) [#/Vol] 2.6 10*3/uL Normal 1.00-4.8 [facility] Comment on above: Performed By: #### C MP, PRL, CBC ####[address] Lymphocytes/100 leukocytes i n Blood by Automated countOrdered By: Bhanu Alvarez on 06-03-2023 Lymphocytes/100 WBC (Bld) 38.0 % Normal . [facility] Comment on above: Performed By: #### C MP, PRL, CBC ####[address] MCH [Entitic mass] by Automa armaan countOrdered By: Bhanu Alvarez on 06-03-2023 MCH (RBC) [Entitic mass] 31.8 pg Normal 24.7-34.3 [facility] Comment on above: Performed By: #### C MP, PRL, CBC ####[address] [address] MCHC Auto (RBC) [Mass/Vol]Or dered By: Bhanu Alvarez on 06-03-2023 MCHC (RBC) [Mass/Vol] 33.9 g/dL 32.0-35.0 [facility] MCV [Entitic volume] by Auto mated countOrdered By: Bhanu Alvarez on 06-03-2023 MCV (RBC) [Entitic vol] 93.9 fL Normal 80-100 [facility] Comment on above: Performed By: #### C MP, PRL, CBC ####[facility] Gsh5555 [address] Monocyte distribution width [Entitic volume] in Blood by AutomatedOrdered By: Bhanu Alvarez on 06-03-2023 Monocyte distribution width Auto (Bld) [Entitic vol] 18.41 % 0.00-20.00 [facility] Neutrophils [#/volume] in Bl ood by Automated countOrdered By: Bhanu Alvarez on 06-03-2023 Neutrophils (Bld) [#/Vol] 3.6 10*3/uL Normal 1.8-7.7 [facility] Comment on above: Performed By: #### C MP, PRL, CBC ####[facility] [id number] Nitrite Test strip Ql (U)Ord ered By: Bhanu Alvarez on 06-03-2023 Nitrite Ql (U) Negative Negative [facility] No Panel InformationOrdered By: Bhanu Alvarez on 06-03-2023 Estimated GFR (CKD-EPI) > 60.0 mL/Min [facility] Creatinine Clearance (Chem 110.22 [facility] Nucleated erythrocytes [Pres ence] in Blood by Automated countOrdered By: Bhanu Alvarez on 06-03-2023 Nucleated RBC Auto Ql (Bld) 0.0 /100{WBC} 0-0.5 [facility] Opiates [Presence] in Urine by Screen methodOrdered By: Bhanu Alvarez on 06-03-2023 Opiates Screen Ql (U) Negative Negative [facility] Phencyclidine Screen Ql (U)O rdered By: Bhanu Alvarez on 06-03-2023 Phencyclidine Ql (U) Negative Negative [facility] Platelet mean volume [Entiti c volume] in Blood by Automated countOrdered By: Bhanu Alvarez on 06-03-2023 Platelet mean volume (Bld) [Entitic vol] 9.3 fL Normal 6.3-10.7 [facility] Comment on above: Performed By: #### C MP, PRL, CBC ####[address] [place] [address] [facility] Platelets [#/volume] in Bloo d by Automated countOrdered By: Bhanu Alvarez on 06-03-2023 Platelets (Bld) [#/Vol] 196 10*3/uL Normal 150-450 [facility] Comment on above: Performed By: #### C MP, PRL, CBC ####[address] [place] [address] [facility] Potassium [Moles/volume] in Serum or PlasmaOrdered By: Bhanu Alvarez on 06-03-2023 Potassium [Moles/Vol] 3.7 mmol/L Normal 3.5-5.1 [facility] Comment on above: Order Comment: Hemol yzed-requested redraw @ 1442. MLG Performed By: #### C MP, PRL, CBC ####[address] [place] [address] [facility] Prolactinon 06-03-2023 Prolactin 8.46 ng/mL Normal 3.34-26.72 [facility] Comment on above: Order Comment: Hemol yzed-requested redraw @ 1442. MLG Result Comment: PERF ORMED BY: [facility] [address] [place] [address] PATHOLOGIST SOLDER MAKING SUPERVISOR LEV HERNÁNDEZ M.D. Performed By: #### C MP, PRL, CBC ####[address] [place] [address] [facility] Prolactin [Mass/volume] in S juan carlos or PlasmaOrdered By: Bhanu Alvarez on 06-03-2023 Prolactin [Mass/Vol] 8.46 ng/mL 3.34-26.72 [facility] Protein Auto test strip (U) [Mass/Vol]Ordered By: Bhanu Alvarez on 06-03-2023 Protein (U) [Mass/Vol] Negative Negative [facility] Protein [Mass/volume] in Ser um or PlasmaOrdered By: Bhanu Alvarez on 06-03-2023 Protein [Mass/Vol] 7.5 g/dL Normal 6.4-8.9 [facility] Comment on above: Order Comment: Hemol yzed-requested redraw @ 1442. MLG Performed By: #### C MP, PRL, CBC ####[address] Serum globulin measurement b y calculation (mass/volume)Ordered By: Bhanu Alvarez on 06-03-2023 Globulin (S) [Mass/Vol] 2.9 g/dL Normal F [facility] Comment on above: Order Comment: Hemol yzed-requested redraw @ 1442. MLG Performed By: #### C MP, PRL, CBC ####[address] Serum or plasma albumin/glob ulin mass ratioOrdered By: Bhanu Alvarez on 06-03-2023 Albumin/Globulin [Mass ratio] 1.6 {ratio} Normal [facility] Comment on above: Order Comment: Hemol yzed-requested redraw @ 1442. MLG Performed By: #### C MP, PRL, CBC ####[address] Serum or plasma anion gap de terminationOrdered By: Bhanu Alvarez on 06-03-2023 Anion gap [Moles/Vol] 11.3 mmol/L Normal 6.0-15.0 [facility] Comment on above: Order Comment: Hemol yzed-requested redraw @ 1442. MLG Performed By: #### C MP, PRL, CBC ####[place] [id number] [facility] Sodium [Moles/volume] in Ser um or PlasmaOrdered By: Bhanu Alvarez on 06-03-2023 Sodium [Moles/Vol] 138 mmol/L Normal 136-145 [facility] Comment on above: Order Comment: Hemol yzed-requested redraw @ 1442. MLG Performed By: #### C MP, PRL, CBC ####[place] [address] Specific gravity Auto test s trip (U) [Rel density]Ordered By: Bhanu Alvarez on 06-03-2023 Specific gravity (U) [Rel density] 1.010 1.001-1.030 [facility] Troponin I High Sensitivityo n 06-03-2023 Troponin I High Sensitivity < 2.3 Normal 0.0-15.0 [facility] Comment on above: Result Comment: PERF ORMED BY: [facility] [address] [place] [address] PATHOLOGIST SOLDER MAKING SUPERVISOR LEV HERNÁNDEZ M.D. Performed By: #### H S TROP ####[address] Troponin I.cardiac [Mass/vol ume] in Serum or Plasma by Detection limit <= 0.01 ng/Ordered By: Bhanu Alvarez on 06-03-2023 Troponin I.cardiac DL <= 0.01 ng/mL [Mass/Vol] < 2.3 pg/mL 0.0-15.0 [facility] Urea nitrogen [Mass/volume] in Serum or PlasmaOrdered By: Bhanu Alvarez on 06-03-2023 Urea nitrogen [Mass/Vol] 10 mg/dL Normal 7-25 [facility] Comment on above: Order Comment: Hemol yzed-requested redraw @ 1442. MLG Performed By: #### C MP, PRL, CBC ####[address] Urinalysison 06-03-2023 Appearance (U) Clear Normal Clear [facility] Comment on above: Order Comment: Name Collection Type:: Clean-Voided Midstream Performed By: #### U A, UHCG, URDS #### [facility] [address] Bilirubin,Urine Negative Normal Negative [facility] Comment on above: Order Comment: Name Collection Type:: Clean-Voided Midstream Performed By: #### U A, UHCG, URDS #### [address] Glucose Ql (U) Normal Normal Normal [facility] Comment on above: Order Comment: Name Collection Type:: Clean-Voided Midstream Performed By: #### U A, UHCG, URDS #### [address] Ketones Ql (U) Negative Normal Negative [facility] Comment on above: Order Comment: Name Collection Type:: Clean-Voided Midstream Performed By: #### U A, UHCG, URDS #### [address] Leukocyte esterase Test strip Ql (U) Negative Normal Negative [facility] Comment on above: Order Comment: Name Collection Type:: Clean-Voided Midstream Performed By: #### U A, UHCG, URDS #### [place] [address] [place] Nitrite,Urine Negative Normal Negative [facility] Comment on above: Order Comment: Name Collection Type:: Clean-Voided Midstream Performed By: #### U A, UHCG, URDS #### [place] [address] [place] Occult Blood,Urine Negative Normal Negative [facility] Comment on above: Order Comment: Name Collection Type:: Clean-Voided Midstream Performed By: #### U A, UHCG, URDS #### [place] [address] [place] Protein,Urine Negative Normal Negative [facility] Comment on above: Order Comment: Name Collection Type:: Clean-Voided Midstream Performed By: #### U A, UHCG, URDS #### [place] [address] [place] Specificy [place],Urine 1.010 Normal 1.001-1.030 [facility] Comment on above: Order Comment: Name Collection Type:: Clean-Voided Midstream Performed By: #### U A, UHCG, URDS #### [place] [address] [place] Urobilinogen,Urine Normal Normal Normal [facility] Comment on above: Order Comment: Name Collection Type:: Clean-Voided Midstream Performed By: #### U FLAKO Cervantes URDS #### [facility] [address] Urine clarity by refractomet ry automatedOrdered By: Bhanu Alvarez on 06-03-2023 Clarity Refractometry automated (U) Clear Clear [facility] Urine glucose measurement by automated test strip (mass/volume)Ordered By: Bhanu Alvarez on 06-03-2023 Glucose Auto test strip (U) [Mass/Vol] Normal mg/dL Normal [facility] Urine hemoglobin detection b y automated test stripOrdered By: Bhanu Alvarez on 06-03-2023 Hemoglobin Auto test strip Ql (U) Negative Negative [facility] Urine leukocyte esterase det ection by automated test stripOrdered By: Bhanu Alvarez on 06-03-2023 Leukocyte esterase Auto test strip Ql (U) Negative Negative [facility] Urine pH measurement by auto mated test stripOrdered By: Bhanu Alvarez on 06-03-2023 pH (U) 6.5 [pH] Normal 5.0-9.0 [facility] Comment on above: Order Comment: Name Collection Type:: Clean-Voided Midstream Performed By: #### U FLAKO Cervantes URDS #### [facility] [address] [place] [address] Urobilinogen Auto test strip (U) [Mass/Vol]Ordered By: Bhanu Alvarez on 06-03-2023 Urobilinogen (U) [Mass/Vol] Normal mg/dL Normal [facility] Physician Referralon 023 Physician Referral [id number] Normal [facility] Physician Referralon 023 Physician Referral [id number]#1.00CD:12 7 Normal [facility] RAD - MISCon 12-27-2022 RAD - MISC [id number]#1.00CD:12 7 Normal [facility] ED Note-Physicianon 11-27-19 ED Note-Physician [id number]#[id number]:12 7 Normal [facility] ED Note-Physician Basic Information Time Seen: Johnny STOKES Gaby ArenasHernandez 11/22/2022 20:47 Chief Complaint L flank pain worsening x 2 weeks. pt. seen at [facility] x 2 with negative workup. hx kidney stones. also c/o N/V. denies fevers. History of Present Illness This patient presents emergency department chief complaint of left flank pain. The patient states this has been going on for 2 weeks. 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 I discussed with [...] with the patient (more content not included)... [facility] Comment on above: Result Comment: Elec [...] Locations R1: This test was performed at: [facility], [address] [place] [address], [address] , , [facility] Comment on above: Performed By: #### 1 [id number], [id number], [id number] #### [facility] [address] [place] [address] Discharge Instructionson Discharge Instructions [id number]#[id number]:1 27 Normal [facility] ED Clinical Summaryon 2022 ED Clinical Summary (Inserted Image. Jeniffer ble to display) [place] [id number] ED Clinical Summary Person Information Name: SULLY ENRIQUEZ [facility] Age: 32 Years : 1990 Sex: Female Language: Israeli PCP: MARIO GLASGOW DO Marital Status: Visit [...] 11/23/2022 01:20:40 11/23/2022 01:20:40 11/23/2022 01:20:40 AD[address]ESS: [address] [facility] [id number] PHYS DOC NOTES: MEDICAL INFORMATION: Prescriptions Given: New Medications [id number], [address], [place] [id number], [phone] tramadol (traMADOL 50 mg Tab) 1 Tablets By Mouth every 6 hours as needed for pain. Refills: 0. Medications to Continue with No Changes Other Medications acetaminophen-hydrocodone (Chaplin 5/325 Tab) By Mouth every 6 hours. [...] Endometriosis; Laparoscopic Lysis of Abdominal Adhesions; Adhesions, Wrht-ak-Nxmi; Abdominal Pain, Adult, Vzkc-fl-Yhnf Follow up: With: Address: When: MARIO GLASGOW [address] [place], [place] [id number] Business (1) In 3 days 11/26/2022 DIAGNOSIS: 1:Chronic left flank pain; 2:Abdominal pain, acute, left upper quadrant; Other chronic pain Normal [facility] ED Patient Education Noteon 11-23-2022 ED Patient [...] including vitamins, herbs, eye drops, creams, and uvlq-hge-labfejy medicines. ? Any problems you or family [...] tells you to take them. ? Taking gswj-ybu-xzhfudg medicines, vitamins, herbs, and supplements. General instructions [...] returns. Aft (more content not included)... Normal [facility] ED Patient Summaryon 023 ED Patient Summary (Inserted Image. Jeniffer ble to display) [place] [id number] Patient Discharge Instructions Person Information Name: SULLY ENRIQUEZ Age: 32 Years Arrival Date: 11/22/2022 19:01:04 Discharge Diagnosis: 1:Chronic left flank pain; 2:Abdominal pain, acute, left upper quadrant; Other chronic pain Primary Care Physician: MARIO GLASGOW DO Provider Information Primary Provider: Sonam Montoya DO Advanced Rn Clinical Trials:None The exam and treatment you received in the Emergency Department were for an urgent problem and are not intended as complete care. It is important that you follow up with a doctor, nurse practitioner, or physician?s executive assistant to general counsel for ongoing care. If your symptoms become worse or you do not improve as expected and you are unable to reach your usual health care provider, you should return to the Emergency Department. We are available 24 hours a day. SULLY ENRIQUEZ has been given the following list of patient education materials, prescriptions and follow-up instructions: Follow-up Instructions: With: Address: When: MARIO GLASGOW [address] [place], [place] [id number] [facility] (1) In 3 days 11/26/2022 In the event that this physician does not participate in your insurance network, please consult with your insurance company to find a nearby participating provider. Patient Education Materials: Endometriosis; Laparoscopic Lysis of Abdominal Adhesions; Adhesions, Tgvo-mm-Vusj; Abdominal Pain, Adult, Zbvr-ea-Jtdg A MESSAGE TO ALL PATIENTS REGARDING OPIOIDS PRESCRIPTION OPIOIDS: WHAT YOU NEED TO KNOW Prescription opioids can be used to help relieve hjiwbwys-nj-ipmald pain and are often prescribed following a [...] struggling wit (more content not included)... Normal [facility] XR Abdomen 1 Viewon 11-24-19 23 XR [...] mGy = na DAP = na Normal [facility] Auto Diffon 11-22-2022 Basophils/100 WBC (Bld) 0.6 % Normal 0.0-2.0 F [facility] Comment on above: Order Comment: Order Added by Discern Expert. Performed By: #### 2 107118, 5379645, 5401933, 55381150, 0556096, 4717699 #### [facility] [address] [place] [address] Basophils/Leukocytes Auto (Bld) [Pure # fraction] 0.0 E9/L Normal 0.0-0.2 [facility] Comment on above: Order Comment: Order Added by Discern Expert. Performed By: #### 2 916473, 4933005, 8600327, 68622913, 2487720, 9509434 #### [facility] [address] [place] [address] Eosinophils/100 WBC (Bld) 1.5 % Normal 0.0-8.0 [facility] Comment on above: Order Comment: Order Added by Discern Expert. Performed By: #### 2 721155, 1429516, 7004809, 93742110, 6613489, 4630795 #### [facility] [address] [place] [address] Eosinophils/Leukocytes Auto (Bld) [Pure # fraction] 0.1 E9/L Normal 0.0-0.5 [facility] Comment on above: Order Comment: Order Added by Discern Expert. Performed By: #### 2 310642, 2444336, 8011946, 98679555, 8486882, 7443537 #### [facility] [address] [place] [address] Lymphocytes/100 WBC (Bld) 33.5 % Normal 14.0-50.0 [facility] Comment on above: Order Comment: Order Added by Discern Expert. Performed By: #### 2 840776, 2440239, 5492543, 80399286, 7823511, 0954497 #### [facility] [address] [place] [address] Lymphocytes/Leukocytes Auto (Bld) [Pure # fraction] 2.6 E9/L Normal 1.0-4.0 [facility] Comment on above: Order Comment: Order Added by [place] Expert. Performed By: #### 2 999617, 5028418, 8925972, 58838859, 6712174, 3370842 #### [facility] [address] [place] [address] Monocytes/100 WBC (Bld) 8.6 % Normal 4.0-14.0 [facility] Comment on above: Order Comment: Order Added by [place] Expert. Performed By: #### 2 228664, 2540917, 1629532, 94170690, 9587111, 4110436 #### [facility] [address] [place] [address] Monocytes/Leukocytes Auto (Bld) [Pure # fraction] 0.7 E9/L Normal 0.2-1.0 [facility] Comment on above: Order Comment: Order Added by Discern Expert. Performed By: #### 2 359957, 2454291, 0806540, 51649193, 6230931, 5680507 #### [facility] [address] [place] [address] Neutrophils/100 WBC (Bld) 55.8 % Normal 36.0-75.0 [facility] Comment on above: Order Comment: Order Added by Discern Expert. Performed By: #### 2 860292, 6372600, 5209929, 96975597, 1868901, 6353216 #### [facility] [address] [place] [address] Neutrophils/Leukocytes Auto (Bld) [Pure # fraction] 4.3 E9/L Normal 2.0-7.5 [facility] Comment on above: Order Comment: Order Added by Discern Expert. Performed By: #### 2 672204, 8898210, 0944267, 58256306, 7106773, 7398725 #### [facility] [address] [place] [address] BMPon 11-22-2022 Creatinine [Mass/Vol] 1.0 mg/dL Normal 0.5-1.3 [facility] Comment on above: Performed By: #### 2 124982, 9848878, 5652722, 67153827, 5142202, 9785030 #### [facility] [address] [place] [address] Urea nitrogen [Mass/Vol] 16 mg/dL Normal 5-21 [facility] Comment on above: Performed By: #### 2 326277, 9776219, 9283311, 42568400, 2044387, 8386653 #### [facility] [address] [place] [address] Urea nitrogen/Creatinine [Mass ratio] 16 No Units Normal 10-20 [facility] Comment on above: Performed By: #### 2 090656, 0711363, 9519315, 10940028, 3101552, 2527672 #### [facility] [address] [place] [address] Anion gap [Moles/Vol] 15 mmol/L Normal 6-16 [facility] Comment on above: Performed By: #### 2 258507, 6833008, 5919395, 88543401, 3149946, 7952560 #### [facility] [address] [place] [address] Calcium [Mass/Vol] 9.6 mg/dL Normal 8.9-11.1 [facility] Comment on above: Performed By: #### 2 930635, 5007472, 1272611, 94849869, 7780236, 1654333 #### [facility] [address] [place] [address] Chloride [Moles/Vol] 107 mmol/L Normal 101-111 [facility] Comment on above: Performed By: #### 2 226726, 5659233, 1353343, 30735877, 8135054, 6062765 #### [facility] [address] [place] [address] CO2 [Moles/Vol] 19 mmol/L Low 21-31 [facility] Comment on above: Performed By: #### 2 491567, 5453443, 2151989, 26599704, 2059610, 3342005 #### [facility] [address] [place] [address] Glucose [Mass/Vol] 97 mg/dL Normal 55-199 [facility] Comment on above: Result Comment: If t his glucose result represents a fasting glucose, interpretation should refer to the following reference range: 55-99 mg/dL Performed By: #### 2 577669, 4851737, 6333331, 06789512, 5256306, 1877770 #### [facility] [address] [place] [address] Potassium [Moles/Vol] 3.9 mmol/L Normal 3.5-5.3 [facility] Comment on above: Performed By: #### 2 258770, 1932632, 0828996, 69322553, 5759495, 1381406 #### [facility] [address] [place] [address] Sodium [Moles/Vol] 137 mmol/L Normal 135-145 [facility] Comment on above: Performed By: #### 2 633167, 1658001, 0555384, 33315383, 5162740, 0650359 #### [facility] [address] [place] [address] CBC w/ Auto Diffon 3 Erythrocyte distribution width (RBC) [Ratio] 13.0 % Normal 10.9-14.2 [facility] Comment on above: Performed By: #### 2 578060, 4123813, 4981257, 17560681, 4897952, 2717264 #### [facility] [address] [place] [address] Hematocrit (Bld) [Volume fraction] 42.7 % Normal 34.0-46.0 [facility] Comment on above: Performed By: #### 2 881297, 6378319, 0634506, 40670442, 0153540, 2304058 #### [facility] [address] [place] [address] Hemoglobin (Bld) [Mass/Vol] 14.6 g/dL Normal 12.0-16.0 [facility] Comment on above: Performed By: #### 2 969501, 7417904, 1021907, 49350535, 8993029, 5435071 #### [facility] [address] [place] [address] MCH (RBC) [Entitic mass] 31.7 pg Normal 27.0-34.0 [facility] Comment on above: Performed By: #### 2 396653, 6152568, 1277079, 23901163, 5171480, 1960619 #### [facility] [address] [place] [address] MCHC (RBC) [Mass/Vol] 34.1 g/dL Normal 31.4-36.0 [facility] Comment on above: Performed By: #### 2 495866, 5279090, 4329457, 35543464, 5986374, 0370147 #### [facility] [address] [place] [address] MCV (RBC) [Entitic vol] 93.1 fL Normal 80.0-100.0 [facility] Comment on above: Performed By: #### 2 566550, 6450323, 1455928, 20810681, 7268900, 0879062 #### [facility] [address] [place] [address] Platelet mean volume (Bld) [Entitic vol] 8.8 fL Normal 6.4-10.8 [facility] Comment on above: Performed By: #### 2 230884, 4246746, 9511864, 93626125, 2450718, 9338042 #### [facility] [address] [place] [address] Platelets (Bld) [#/Vol] 199.0 E9/L Normal 150.0-500.0 [facility] Comment on above: Performed By: #### 2 436657, 5763852, 5898997, 51299724, 8318838, 2496750 #### [facility] [address] [place] [address] RBC (Bld) [#/Vol] 4.6 E12/L Normal 4.3-5.9 [facility] Comment on above: Performed By: #### 2 344264, 2639732, 2770285, 13562397, 6695301, 6530828 #### [facility] [address] [place] [address] WBC corrected for nucl RBC Auto (Bld) [#/Vol] 7.7 E9/L Normal 4.0-11.0 [facility] Comment on above: Performed By: #### 2 885028, 2352869, 9965529, 87969065, 1721560, 9438844 #### [facility] [address] [place] [address] CHEMISTRYOrdered By: SYSTEM SYSTEM on 11-22-2022 Albumin [...] m2 Normal >=59mL/min/ 1.73 m2 [facility] Chem S Globulin (S) [Mass/Vol] 3.4 g/dL [...] 16 mg/dL Normal 5 - 21 mg/dL FT Remisol Urea nitrogen/Creatinine [Mass ratio] 16 mg/mg Normal 10 - 20 FT Remisol Consent for Treatmenton 08 Consent for Treatment [id number]#[id number]:12 7 Normal [facility] HEMATOLOGYOrdered By: SYSTEM SYSTEM on 11-22-2022 Basophils/100 [...] Normal 4.0 - 11.0 E9/L [facility] HemeAutoSS Hep Func Panelon 11-22-2022 Bilirubin.indirect [Mass or moles/Vol] UTC Abnormal 0.1-0.9 [facility] Comment on above: Result Comment: Resu lt verified by Discern Rule. Performed result UTC (Unable to Calculate) was sent as an Alpha code due the inability to calculate a valid numeric value. Performed By: #### 2 348127, 2860784, 7028108, 99325894, 0422411, 7087371 #### [facility] [address] [place] [address] Albumin [Mass/Vol] 4.5 g/dL Normal 3.3-5.0 [facility] Comment on above: Performed By: #### 2 415174, 5893501, 1820758, 58938035, 0077853, 7223076 #### [facility] [address] [place] [address] Albumin/Globulin (S) [Mass conc ratio] 1.3 Normal 1.1-2.2 [facility] Comment on above: Performed By: #### 2 717348, 4210913, 4833047, 95881699, 2894050, 7219290 #### [facility] [address] [place] [address] ALP [Catalytic activity/Vol] 42 Int._Unit/L Normal 21-98 [facility] Comment on above: Performed By: #### 2 285939, 7244835, 7370299, 60600659, 2576234, 2187969 #### [facility] [address] [place] [address] ALT No additional P-5'-P [Catalytic activity/Vol] 36 Int._Unit/L Normal 6-46 [facility] Comment on above: Performed By: #### 2 778341, 4274330, 6822923, 92275986, 7791260, 6104437 #### [facility] [address] [place] [address] AST [Catalytic activity/Vol] 26 Int._Unit/L Normal 5-43 [facility] Comment on above: Performed By: #### 2 583796, 5382254, 5363895, 18570990, 6803248, 4380780 #### [facility] [address] [place] [address] Bilirubin [Mass/Vol] 0.6 mg/dL Normal 0.0-1.1 [facility] Comment on above: Performed By: #### 2 440583, 3715332, 8656357, 33962987, 0962934, 4920455 #### [facility] [address] [place] [address] Globulin (S) [Mass/Vol] 3.4 g/dL Normal 1.4-4.0 [facility] Comment on above: Performed By: #### 2 376094, 2068298, 4250643, 10294423, 5922104, 3891685 #### [facility] [address] [place] [address] Protein [Mass/Vol] 7.9 g/dL High 6.0-7.8 [facility] Comment on above: Performed By: #### 2 678019, 6089876, 4456277, 47952507, 6570641, 8741506 #### [facility] [address] [place] [address] Bilirubin.direct [Mass/Vol] mg/dL Normal 0.1-0.4 [facility] Comment on above: Performed By: #### 2 442874, 6975891, 0371556, 89453089, 6968388, 8607668 #### [facility] [address] [place] [address] Laboratory - Microbiology an d Antimicrobial susceptibilityOrdered By: Sherice Espinosa on 11-22-2022 Bacteria identified Cx Nom (U) 500 cfu/ml Mixed skin contaminants [facility] Lipase Levelon 11-22-2022 Lipase [Catalytic activity/Vol] 28 U/L Normal 13-58 [facility] Comment on above: Performed By: #### 2 359279, 7199356, 1258128, 98950553, 6981540, 4768943 #### [facility] [address] [place] [address] SEROLOGYOrdered By: Mario orellana on 11-22-2022 HCG.beta subunit (U) [Moles/Vol] Negative Normal [facility] Sero U BetaHcg Qualon 11-22-2022 HCG.beta subunit (U) [Moles/Vol] Negative Normal [facility] Comment on above: Performed By: #### 1 4966555, 1759195, 50015219 #### [facility] [address] [place] [address] UA With Cult Reflexon 2022 Bacteria LM Ql (Urine sed) 2+ /HPF Abnormal Trace [facility] Comment on above: Performed By: #### 1 8810656, 8416745, 06094142 #### [facility] [address] [place] [address] Bilirubin Ql (U) Negative Normal Negative [facility] Comment on above: Performed By: #### 1 7967476, 1350749, 93562426 #### [facility] [address] [place] [address] Clarity (U) CLEAR Normal Clear [facility] Comment on above: Performed By: #### 1 0748947, 7360922, 04917625 #### [facility] [address] [place] [address] Color (U) YELLOW Normal Yellow [facility] Comment on above: Performed By: #### 1 4418935, 5348205, 39358040 #### [facility] [address] [place] [address] Epithelial cells.squamous LM.HPF (Urine sed) [#/Area] 5-8 Normal 0-2 [facility] Comment on above: Performed By: #### 1 8936289, 3633692, 24110224 #### [facility] [address] [place] [address] Glucose Test strip (U) [Mass/Vol] Negative Normal Negative [facility] Comment on above: Performed By: #### 1 6687447, 7520800, 58203489 #### [facility] [address] [place] [address] Hemoglobin Ql (U) Negative Normal Negative [facility] Comment on above: Performed By: #### 1 7826377, 3693994, 15783083 #### [facility] [address] [place] [address] Ketones (U) [Mass/Vol] Negative Normal Negative Fi [facility] Comment on above: Performed By: #### 1 3259668, 2896204, 86798406 #### [facility] [address] [place] [address] [employer]plasma/[employer] RBC (Bld) [Mass ratio] 0-3 Normal 0-3 [facility] Comment on above: Performed By: #### 1 6213957, 3586424, 90551354 #### [facility] [address] [place] [address] Mucus Ql (Urine sed) TRACE Normal [facility] Comment on above: Performed By: #### 1 1568767, 7199905, 46353220 #### [facility] [address] [place] [address] Nitrite Ql (U) Negative Normal Negative [facility] Comment on above: Performed By: #### 1 2333419, 9327805, 36823938 #### [facility] [address] [place] [address] pH (U) 6.0 [pH] Invalid Interpretation Code 5.0-9.0 [facility] Comment on above: Performed By: #### 1 3544053, 7663652, 59573984 #### [facility] [address] [place] [address] Protein (U) [Mass/Vol] Negative Normal Negative [facility] Comment on above: Performed By: #### 1 5846786, 7323258, 49133879 #### [facility] [address] [place] [address] Specific gravity (U) [Rel density] 1.025 Invalid Interpretation Code 1.005-1.030 [facility] Comment on above: Performed By: #### 1 0022856, 7370154, 16466616 #### [facility] [address] [place] [address] Type of Urine collection method Clean Catch Normal [facility] Comment on above: Performed By: #### 1 7046681, 2494227, 01557961 #### [facility] [address] [place] [address] Urobilinogen Qn (U) 0.2 {Elba'U}/dL Normal 0.0-1.0 [facility] Comment on above: Performed By: #### 1 9351715, 4974752, 67270175 #### [facility] [address] [place] [address] WBC Auto Ql (U) Negative Normal Negative [facility] Comment on above: Performed By: #### 1 9714746, 5680775, 07647346 #### [facility] [address] [place] [address] WBC LM.HPF (Urine sed) [#/Area] 0-5 Normal 0-5 [facility] Comment on above: Performed By: #### 1 2579121, 3197033, 03659194 #### [facility] [address] [place] [address] URINALYSISOrdered By: Mario howell on 11-22-2022 Bacteria [...] PM) Normal Negative [facility] UA Auto SS [employer]plasma/[employer]. RBC (Bld) [Mass ratio] 0-3 /HPF Normal [...] PM) Invalid Interpretation Code 1.005 - 1.030 [facility] UA Auto SS UA Spec Desc Clean Catch (11/22/22 7:19 PM) Normal [facility] UA Auto SS Urobilinogen Qn (U) 0.2572992 {Elba'U}/dL Normal 0.0 - 1.0 EU/dL [facility] UA Auto SS WBC Auto Ql (U) Negative (11/22/22 7:19 PM) Normal Negative [facility] UA Auto SS WBC LM.HPF (Urine sed) [#/Area] 0-5 /HPF Normal 0-5/HPF [facility] UA Auto SS eGFRon 11-22-2022 GFR/1.73 sq M.predicted among non-blacks MDRD (S/P/Bld) [Vol rate/Area] 76 mL/min/1.73 m2 Normal >=59 [facility] Comment on above: Order Comment: Order added by Discern Expert. Result Comment: [employer] fahad kidney disease could be indicated at eGFR's of less than 60 mL/min/1.73m2. Kidney failure is indicated at less than 15 mL/min/1.73m2. Performed By: #### 2 012014, 1767794, 8299461, 30167390, 4891871, 7346488 #### [facility] [address] [place] [address] CT HEAD WO CONon 08-14-2022 CT HEAD [...] ROC ARNOLD Date: 2022-08-13 22:12 Normal [facility] CBC AUTO DIFFon 08-13-2022 BASO # 0.0 103/ul Normal 0.0-0.1 [facility] Comment on above: Performed By: #### C BC ####[facility] [address] [place], [place] [address]Dr. Douglas Tucker Basophils/100 WBC (Bld) 0.3 % Normal 0.2-2.0 [facility] Comment on above: Performed By: #### C BC ####[facility] [address] [place], [place] [address]Dr. Douglas Tucker EO # 0.0 103/ul Normal 0.0-0.7 [facility] Comment on above: Performed By: #### C BC ####[facility] [address] [place], [place] [address]Dr. Douglas Tucker Eosinophils/100 WBC (Bld) 0.1 % Critically low 0.9-7.0 [facility] Comment on above: Performed By: #### C BC ####[facility] [address] [place], [place] [address]Dr. Douglas Tucker Erythrocyte distribution width (RBC) [Ratio] 12.3 % Normal 11.0-15.0 [facility] Comment on above: Performed By: #### C BC ####[facility] [address] [place], [place] [address]Dr. Douglas Tucker Hematocrit (Bld) [Volume fraction] 41.6 % Normal 36.0-48.0 [facility] Comment on above: Performed By: #### C BC ####[facility] [address] [place], [place] [address]Dr. Douglas Tucker Hemoglobin (Bld) [Mass/Vol] 13.6 g/dL Normal 12.0-16.0 [facility] Comment on above: Performed By: #### C BC ####[facility] [address] [place], [place] [address]Dr. Douglas Tucker IG # 0.05 10e3/ul Critically high 0.00-0.03 [facility] Comment on above: Performed By: #### C BC ####[facility] [address] [place], [place] [address]Dr. Douglas Tucker IG % 0.3 % Normal 0.0-0.5 [facility] Comment on above: Performed By: #### C BC ####[facility] [address] [place] [address]Dr. Douglas Garrett LYMPH # 3.0 103/ul Normal 1.2-3.8 [facility] Comment on above: Performed By: #### C BC ####[facility] [address] [place] [address]Dr. Umuana Tucker Lymphocytes/100 WBC (Bld) 20.9 % Normal 20.5-60.0 [facility] Comment on above: Performed By: #### C BC ####[facility] [address] [place] [address]Dr. Douglas Tucker MANUAL DIFF REQ NO Normal [facility] Comment on above: Performed By: #### C BC ####[facility] [address] [place] [address]Dr. Umuana Tucker MCH (RBC) [Entitic mass] 31.7 pg Normal 26.7-34.0 [facility] Comment on above: Performed By: #### C BC ####[facility] [address] [place], [place] [address]Dr. Douglas Garrett MCHC (RBC) [Mass/Vol] 32.7 g/dL Normal 29.9-35.2 [facility] Comment on above: Performed By: #### C BC ####[facility] [address] [place] [address]Dr. Douglas Tucker MCV (RBC) [Entitic vol] 97.0 fL Normal 81.0-99.0 [facility] Comment on above: Performed By: #### C BC ####[facility] [address] [place] [address]Dr. Douglas Tucker MONO # 1.0 103/ul Critically high 0.3-0.8 [facility] Comment on above: Performed By: #### C BC ####[facility] [address] [place] [address]Dr. Douglas Tucker Monocytes/100 WBC (Bld) 7.2 % Normal 1.7-12.0 [facility] Comment on above: Performed By: #### C BC ####[facility] [address] [place] [address]Dr. Douglas Tucker NEUT # 10.2 103/ul Critically high 1.4-6.5 [facility] Comment on above: Performed By: #### C BC ####[facility] [address] [place] [address]Dr. Douglas Tucker Neutrophils/100 WBC (Bld) 71.2 % Normal 43.0-75.0 [facility] Comment on above: Performed By: #### C BC ####[facility] [address] [place] [address]Dr. Douglas Tucker Platelet mean volume (Bld) [Entitic vol] 10.6 fL Normal 9.5-13.5 [facility] Comment on above: Performed By: #### C BC ####[facility] [address] [place] [address]Dr. Douglas Tucker PLT 229 103/ul Normal 150-450 [facility] Comment on above: Performed By: #### C BC ####[facility] [address] [place] [address]Dr. Douglas Tucker RBC 4.29 106/ul Normal 4.20-5.40 [facility] Comment on above: Performed By: #### C BC ####[facility] [address] [place] [address]Dr. Douglas Tucker WBC 14.4 103/ul Critically high 4.0-11.0 [facility] Comment on above: Performed By: #### C BC ####[facility] [address] [place] [address]DrHernandez Tucker PROF CHEM 8 (BAS METB)on Anion gap [Moles/Vol] 14.6 mmol/L Normal [facility] Comment on above: Performed By: #### T SH, BMP #### [facility] [address] [place], [place] [address] Dr. Douglas Tucker Calcium [Mass/Vol] 9.0 mg/dL Normal 8.5-10.1 [facility] Comment on above: Performed By: #### T SH, BMP #### [facility] [address] [place] [address] [address] Douglas Tucker Chloride [Moles/Vol] 107 mmol/L Normal 98-107 [facility] Comment on above: Performed By: #### T SH, BMP #### [facility] [address] [place] [address] [address] Douglas Tucker CO2 [Moles/Vol] 23.2 mmol/L Normal 21.0-32.0 [facility] Comment on above: Performed By: #### T SH, BMP #### [facility] [address] [place] [address] [address] Douglas Tucker Creatinine [Mass/Vol] 0.88 mg/dL Normal 0.55-1.02 [facility] Comment on above: Performed By: #### T SH, BMP #### [facility] [address] [place] [address] Dr. Douglas Tucker EGFR-AF ETHIOPIAN >60 Normal >=60 [facility] Comment on above: Performed By: #### T SH, BMP #### [facility] [address] [place] [address] [address] Douglas Tucker EGFR-NON AF ETHIOPIAN >60 Normal >=60 [facility] Comment on above: Performed By: #### T SH, BMP #### [facility] [address] [place] [address] Dr. Douglas Tucker Glucose [Mass/Vol] 100 mg/dL Normal 74-106 [facility] Comment on above: Performed By: #### T SH, BMP #### [facility] [address] [place] [address] [address] Douglas Tucker Potassium [Moles/Vol] 3.8 mmol/L Normal 3.5-5.1 [facility] Comment on above: Performed By: #### T SH, BMP #### [facility] [address] [place] [address] [address] Douglas Tucker Sodium [Moles/Vol] 141 mmol/L Normal 136-145 [facility] Comment on above: Performed By: #### T SH, BMP #### [facility] [address] [place] [address] [address] Douglas Tucker Urea nitrogen [Mass/Vol] 10.0 mg/dL Normal 7.0-18.0 [facility] Comment on above: Performed By: #### T SH, BMP #### [facility] [address] [place] [address] [address] Douglas Tucker Urea nitrogen/Creatinine [Mass ratio] 11.4 mg/mg Normal [facility] Comment on above: Performed By: #### T SH, BMP #### [facility] [address] [place] [address] [address] Douglas Tucker TSHon 08-13-2022 TSH 0.730 uIU/mL Normal 0.358-3.740 [facility] Comment on above: Performed By: #### T SH, BMP #### [facility] [address] [place] [address] [address] Douglas Tucker Automated erythrocytes count in urine sediment (number/area)Ordered By: Mario Glasgow on 06-14-2022 RBC Auto (Urine sed) [#/Area] None seen [HPF] 0-4 [facility] Automated leukocytes count i n urine sediment (number/area)Ordered By: Mario Glasgow on 06-14-2022 WBC Auto (Urine sed) [#/Area] 20-49 [HPF] 0-4 [facility] Bilirubin Test strip Ql (U)O rdered By: Mario Glasgow on 06-14-2022 Bilirubin Ql (U) Negative Negative [facility] Color Auto (U)Ordered By: Pee on 06-14-2022 Color (U) Yellow Yellow [facility] Ketones Auto test strip (U) [Mass/Vol]Ordered By: Mario Glasgow on 06-14-2022 Ketones (U) [Mass/Vol] Negative Negative [facility] Laboratory - UrinalysisOrder ed By: Mario Glasgow on 06-14-2022 Hyaline casts LM Ql (Urine sed) 0-8 [LPF] 0-8 [facility] Nitrite Test strip Ql (U)Ord ered By: Mario Glasgow on 06-14-2022 Nitrite Ql (U) Negative Negative [facility] Protein Auto test strip (U) [Mass/Vol]Ordered By: Mario Glasgow on 06-14-2022 Protein (U) [Mass/Vol] Negative Negative Fi [facility] Specific gravity Auto test s trip (U) [Rel density]Ordered By: Mario Glasgow on 06-14-2022 Specific gravity (U) [Rel density] 1.013 1.001-1.030 [facility] Squamous epithelial cells de tection in urine sediment by light microscopyOrdered By: Mario Glasgow on 06-14-2022 Epithelial cells.squamous LM Ql (Urine sed) 5-9 [HPF] 0-2 [facility] Urine bacteria detection by automated methodOrdered By: Mario Glasgow on 06-14-2022 Bacteria Auto Ql (U) 2+ None Seen [facility] Urine clarity by refractomet ry automatedOrdered By: Mario Glasgow on 06-14-2022 Clarity Refractometry automated (U) Cloudy Clear [facility] Urine culture routineOrdered By: Mario Glasgow on 06-14-2022 Bacteria identified Cx Nom (U) Strep. agalactiae Grp B [facility] Urine glucose measurement by automated test strip (mass/volume)Ordered By: Mario Glasgow on 06-14-2022 Glucose Auto test strip (U) [Mass/Vol] Normal mg/dL Normal [facility] Urine hemoglobin detection b y automated test stripOrdered By: Mario Glasgow on 06-14-2022 Hemoglobin Auto test strip Ql (U) Negative Negative [facility] Urine leukocyte esterase det ection by automated test stripOrdered By: Mario Glasgow on 06-14-2022 Leukocyte esterase Auto test strip Ql (U) 3+ Negative [facility] Urobilinogen Auto test strip (U) [Mass/Vol]Ordered By: Mario Glasgow on 06-14-2022 Urobilinogen (U) [Mass/Vol] Normal mg/dL Normal [facility] pH Auto test strip (U)Ordere d By: Mario Glasgow on 06-14-2022 pH (U) 5.5 [pH] 5.0-9.0 [facility] HCG ( test) IA.rapi d Ql (U)Ordered By: Figueroa Galindo on 05-02-2022 HCG ( test) Ql (U) Negative [facility] CULTURE URINEon 04-25-2022 CULTURE URINE Culture Observations : MODERATE GROWTH OF MIXED GENITAL CRICKET. NO POTENTIAL PATHOGENS SEEN. Normal [facility] Comment on above: Performed By: #### U RCX ####[facility] [address] [place] [address]Dr. Douglas Tucker ER URINE PROFILEon 3 Bilirubin Ql (U) Negative Normal NEGATIVE [facility] Comment on above: Performed By: #### BLAINE MALAVE, ERUR #### [facility] [address] [place] [address] [address] Douglas Tucker Clarity (U) SL CLOUDY Abnormal CLEAR [facility] Comment on above: Performed By: #### BLAINE MALAVE, ERUR #### [facility] [address] [place] [address] [address] Douglas Tucker Color (U) YELLOW Normal YELLOW [facility] Comment on above: Performed By: #### BLAINE MALAVE, ERUR #### [facility] [address] [place] [address] [address] Douglas GIRON A micrscopic examina tion will be performed if indicated. Normal [facility] Comment on above: Performed By: #### BLAINE MALAVE, ERUR #### [facility] [address] [place] [address] [address] Douglas Tucker Glucose Ql (U) Negative Normal NEGATIVE [facility] Comment on above: Performed By: #### BLAINE MALAVE, ERUR #### [facility] [address] [place] [address] [address] Douglas Tucker Hemoglobin Ql (U) SMALL Abnormal NEGATIVE [facility] Comment on above: Performed By: #### BLAINE MALAVE, ERUR #### [facility] [address] [place] [address] [address] Douglas Tucker Ketones Ql (U) Negative Normal NEGATIVE [facility] Comment on above: Performed By: #### P REGU UMICRO, ERUR #### [facility] [address] [place] [address] Dr. Douglas Tucker LEUKOCYTES Negative Normal NEGATIVE [facility] Comment on above: Performed By: #### P REGU, UMICRO, ERUR #### [facility] [address] [place] [address] Dr. Douglas Tucker Nitrite Ql (U) Negative Normal NEGATIVE [facility] Comment on above: Performed By: #### P REGU UMICRO, ERUR #### [facility] [address] [place] [address] Dr. Douglas Tucker pH (U) 6.0 [pH] Normal 5-9 [facility] Comment on above: Performed By: #### P REGUCHERYLICRO, ERUR #### [facility] [address] [place] [address] Dr. Douglas Tucker SPEC GRAVITY >=1.030 Abnormal 1.005-<=1.0 25 [facility] Comment on above: Performed By: #### P REGUCHERYLICRO, ERUR #### [facility] [address] [place] [address] Dr. Douglas Tucker UA PROTEIN TRACE Normal NEGATIVE/ TRACE [facility] Comment on above: Performed By: #### P REGU UMICRO, ERUR #### [facility] [address] [place] [address] Dr. Douglas Tucker UR MICRO IND INDICATED Normal [facility] Comment on above: Performed By: #### P REGU UMICRO, ERUR #### [facility] [address] [place] [address] Dr. Douglas Tucker Urobilinogen Qn (U) 0.2 {Elba'U}/dL Normal 0.2 - 1. 0 [facility] Comment on above: Performed By: #### P REGU UMICRO, ERUR #### [facility] [address] [place] [address] Dr. Douglas Tucker URon 04-25-2022 , QUAL Negative Normal NEGATIVE [facility] Comment on above: Performed By: #### P BLAINE GOODWIN, ERUR #### [facility] [address] [place] [address] Dr. Douglas Tucker URINE MICROSCOPIC ONLYon BACTERIA MODERATE Abnormal NONE SEEN [facility] Comment on above: Performed By: #### P BLAINE GOODWIN, ERUR #### [facility] [address] [place] [address] Dr. Douglas Tucker Bacteria identified Cx Nom (U) INDICATED Normal [facility] Comment on above: Performed By: #### BLAINE MALAVE, ERUR #### [facility] [address] [place] [address] Dr. Douglas Tucker CAST NONE SEEN Normal NONE SEEN [facility] Comment on above: Performed By: #### BLAINE MALAVE, ERUR #### [facility] [address] [place] [address] Dr. Douglas Tucker Crystals LM Nom (Urine sed) NONE SEEN Normal NONE SEEN [facility] Comment on above: Performed By: #### BLAINE MALAVE, ERUR #### [facility] [address] [place] [address] Dr. Douglas Tucker Epithelial cells LM Ql (Urine sed) MODERATE Abnormal NONE SEEN /RARE [facility] Comment on above: Performed By: #### BLAINE MALAVE, ERUR #### [facility] [address] [place] [address] Dr. Douglas Tucker MUCOUS NONE SEEN Normal NONE SEEN [facility] Comment on above: Performed By: #### P BLAINE GOODWIN, ERUR #### [facility] [address] [place] [address] Dr. Douglas Tucker RBC 2-5 Abnormal 0-2 [facility] Comment on above: Performed By: #### P BLAINE GOODWIN, ERUR #### [facility] [address] [place] [address] Dr. Douglas Tucker WBC 0-2 Abnormal NONE SEEN [facility] Comment on above: Performed By: #### P BLAINE GOODWIN, NIRALIR #### [facility] [address] [place] [address] [address] Douglas Tucker COVID-19 SOFIAOrdered By: Adal Garcia on 04-23-2022 SARS-CoV+SARS-CoV-2 (COVID-19) Ag IA.rapid Ql (Resp) Negative Negative [facility] Comment on above: This is a duplicate Ruth SARS Antigen (LILLY) result to be used for statistical tracking purpose only. No Panel InformationOrdered By: Jen Garcia on 04-23-2022 SARS Antigen (LFIA) [facility] Activated partial thrombopla stin time (aPTT) in platelet poor plasma by coagulation aOrdered By: Jen Garcia on 04-10-2022 aPTT Coag (PPP) [Time] 31.6 s 25.1-36.5 [facility] Albumin [Mass/volume] in Ser um or PlasmaOrdered By: Jen Garcia on 04-10-2022 Albumin [Mass/Vol] 4.4 g/dL 3.2-5.5 [facility] Automated erythrocytes count in urine sediment (number/area)Ordered By: Jen Garcia on 04-10-2022 RBC Auto (Urine sed) [#/Area] None seen [HPF] 0-4 [facility] Automated leukocytes count i n urine sediment (number/area)Ordered By: Jen Garcia on 04-10-2022 WBC Auto (Urine sed) [#/Area] 20-49 [HPF] 0-4 [facility] Automated urine hyaline cast s count (number/volume)Ordered By: Jen Garcia on 04-10-2022 Hyaline casts Auto (U) [#/Vol] None seen [LPF] 0-1 [facility] Basophils Auto (Bld) [#/Vol] Ordered By: Jen Garcia on 04-10-2022 Basophils (Bld) [#/Vol] 0.0 10*3/uL 0.0-0.2 [facility] Basophils/100 WBC Auto (Bld) Ordered By: Jen Garcia on 04-10-2022 Basophils/100 WBC (Bld) 0.4 % . F [facility] Bilirubin Test strip Ql (U)O rdered By: Jen Garcia on 04-10-2022 Bilirubin Ql (U) Negative Negative [facility] Casts typing in urine sedime nt by light microscopyOrdered By: Jen Garcia on 04-10-2022 Casts LM Nom (Urine sed) None seen [LPF] None Seen [facility] Color Auto (U)Ordered By: Adal Garcia on 04-10-2022 Color (U) Yellow Yellow [facility] Creatinine and Glomerular fi ltration rate.predicted panel (S/P/Bld)Ordered By: Jen Garcia on 04-10-2022 Creatinine [Mass/Vol] 0.80 mg/dL 0.44-1.03 [facility] Eosinophils Auto (Bld) [#/Vo l]Ordered By: Jen Garcia on 04-10-2022 Eosinophils (Bld) [#/Vol] 0.3 10*3/uL 0.0-0.45 [facility] Eosinophils/100 WBC Auto (Bl d)Ordered By: Jen Garcia on 04-10-2022 Eosinophils/100 WBC (Bld) 3.6 % . [facility] Erythrocyte distribution wid th Auto (RBC) [Ratio]Ordered By: Jen Garcia on 04-10-2022 Erythrocyte distribution width (RBC) [Ratio] 13.0 % 11.9-15.3 [facility] Estimated glomerular filtrat ion rate (GFR) non- AmericanOrdered By: Jen Garcia on 04-10-2022 GFR/1.73 sq M.predicted among non-blacks MDRD (S/P/Bld) [Vol rate/Area] > 60 mL/Min [facility] Globulin Calc (S) [Mass/Vol] Ordered By: Jen Garcia on 04-10-2022 Globulin (S) [Mass/Vol] 3.1 g/dL F [facility] Hematocrit Auto (Bld) [Volum e fraction]Ordered By: Jen Garcia on 04-10-2022 Hematocrit (Bld) [Volume fraction] 44.2 % 34.0-46.4 [facility] Hemoglobin [Mass/volume] in BloodOrdered By: Jen Garcia on 04-10-2022 Hemoglobin (Bld) [Mass/Vol] 14.8 g/dL 11.8-15.4 [facility] Ketones Auto test strip (U) [Mass/Vol]Ordered By: Jen Garcia on 04-10-2022 Ketones (U) [Mass/Vol] Negative Negative Fi [facility] - CoagulationOrde red By: Jen Garcia on 04-10-2022 PT Coag (PPP) [Time] 10.8 s 9.0-12.9 [facility] Leukocytes [#/volume] correc armaan for nucleated erythrocytes in Blood by Automated counOrdered By: Jen Garcia on 04-10-2022 WBC corrected for nucl RBC Auto (Bld) [#/Vol] 8.6 10*3/uL 3.8-11.6 [facility] Lymphocytes Auto (Bld) [#/Vo l]Ordered By: Jen Garcia on 04-10-2022 Lymphocytes (Bld) [#/Vol] 3.0 10*3/uL 1.00-4.8 [facility] Lymphocytes/100 WBC Auto (Bl d)Ordered By: Jen Garcia on 04-10-2022 Lymphocytes/100 WBC (Bld) 35.3 % . [facility] MCH Auto (RBC) [Entitic mass ]Ordered By: Jen Garcia on 04-10-2022 MCH (RBC) [Entitic mass] 31.8 pg 24.7-34.3 [facility] MCHC Auto (RBC) [Mass/Vol]Or dered By: Jen Garcia on 04-10-2022 MCHC (RBC) [Mass/Vol] 33.5 g/dL 32.0-35.0 [facility] MCV Auto (RBC) [Entitic vol] Ordered By: Jen Garcia on 04-10-2022 MCV (RBC) [Entitic vol] 95.0 fL 80-100 F [facility] Monocytes Auto (Bld) [#/Vol] Ordered By: Jen Garcia on 04-10-2022 Monocytes (Bld) [#/Vol] 0.6 10*3/uL 0.0-0.8 [facility] Monocytes/100 WBC Auto (Bld) Ordered By: Jen Garcia on 04-10-2022 Monocytes/100 WBC (Bld) 7.0 % . [facility] Neutrophils Auto (Bld) [#/Vo l]Ordered By: Jen Garcia on 04-10-2022 Neutrophils (Bld) [#/Vol] 4.6 10*3/uL 1.8-7.7 [facility] Neutrophils/100 WBC Auto (Bl d)Ordered By: Jen Garcia on 04-10-2022 Neutrophils/100 WBC (Bld) 53.7 % . [facility] Nitrite Test strip Ql (U)Ord ered By: Jen Garcia on 04-10-2022 Nitrite Ql (U) Negative Negative [facility] No Panel InformationOrdered By: Jen Garcia on 04-10-2022 Estimated GFR () > 60 mL/Min [facility] Comment on above: GFR estimated refere nce range: According to KDOQI guidelines, <60 ml/min/1.73m2 is sufficient to diagnose a patient with chronic kidney disease. Pharmacy Creatinine Clearance (Chem N/A [facility] Nucleated erythrocytes [Pres ence] in Blood by Automated countOrdered By: Jen Garcia on 04-10-2022 Nucleated RBC Auto Ql (Bld) 0.1 /100{WBC} 0-0.5 [facility] Platelet mean volume Auto (B ld) [Entitic vol]Ordered By: Jen Garcia on 04-10-2022 Platelet mean volume (Bld) [Entitic vol] 9.1 fL 6.3-10.7 [facility] Platelet poor plasma interna tional normalized ratio (INR) by coagulation assay (relatOrdered By: Jen Garcia on 04-10-2022 INR Coag (PPP) [Relative time] 1.0 {INR} [facility] Comment on above: INR Therapeutic [...] 04-10-2022 Platelets (Bld) [#/Vol] 192 10*3/uL 150-450 [facility] Protein Auto test strip (U) [Mass/Vol]Ordered By: Jen Garcia on 04-10-2022 Protein (U) [Mass/Vol] Negative Negative [facility] Protein [Mass/volume] in Ser um or PlasmaOrdered By: Jen Garcia on 04-10-2022 Protein [Mass/Vol] 7.5 g/dL 6.1-7.9 [facility] RBC Auto (Bld) [#/Vol]Ordere d By: Jen Garcia on 04-10-2022 RBC (Bld) [#/Vol] 4.65 10*6/uL 3.60-5.00 [facility] Serum or plasma alanine venegas otransferase measurement without P-5'-P (enzymatic activiOrdered By: Jen Garcia on 04-10-2022 ALT No additional P-5'-P [Catalytic activity/Vol] 19 U/L 1060 [facility] Serum or plasma albumin/glob ulin mass ratioOrdered By: Jen Garcia on 04-10-2022 Albumin/Globulin [Mass ratio] 1.4 {ratio} [facility] Serum or plasma alkaline molina sphatase measurement (enzymatic activity/volume)Ordered By: Jen Garcia on 04-10-2022 ALP [Catalytic activity/Vol] 47 U/L 32-92 [facility] Serum or plasma anion gap de terminationOrdered By: Jen Garcia on 04-10-2022 Anion gap [Moles/Vol] 13.2 mmol/L 6.0-15.0 [facility] Serum or plasma aspartate am inotransferase measurement (enzymatic activity/volume)Ordered By: Jen Garcia on 04-10-2022 AST [Catalytic activity/Vol] 18 U/L 1042 [facility] Serum or plasma calcium liam urement (mass/volume)Ordered By: Jen Garcia on 04-10-2022 Calcium [Mass/Vol] 9.5 mg/dL 8.2-10.2 [facility] Serum or plasma chloride fransisca surement (moles/volume)Ordered By: Jen Garcia on 04-10-2022 Chloride [Moles/Vol] 106 mmol/L 95-114 [facility] Serum or plasma glucose liam urement (mass/volume)Ordered By: Jen Garcia on 04-10-2022 Glucose [Mass/Vol] 88 mg/dL 70-100 [facility] Comment on above: ADA recommended refe rence rangeRandom Glucose Reference Range is dependent on time and content of last meal. Glucose of more than 200 mg/dL in a nonstressed, ambulatory subject supports the diagnosis of Diabetes Mellitus. Serum or plasma potassium me asurement (moles/volume)Ordered By: Jen Garcia on 04-10-2022 Potassium [Moles/Vol] 4.1 mmol/L 3.5-5.1 [facility] Serum or plasma sodium measu rement (moles/volume)Ordered By: Jen Garcia on 04-10-2022 Sodium [Moles/Vol] 134 mmol/L 136-146 [facility] Serum or plasma total biliru bin measurement (mass/volume)Ordered By: Jen Garcia on 04-10-2022 Bilirubin [Mass/Vol] 0.7 mg/dL 0.3-1.2 [facility] Serum or plasma total carbon dioxide measurement (moles/volume)Ordered By: Jen Garcia on 04-10-2022 CO2 [Moles/Vol] 18.9 mmol/L 22.0-30.0 [facility] Serum or plasma urea nitroge n measurement (mass/volume)Ordered By: Jen Garcia on 04-10-2022 Urea nitrogen [Mass/Vol] 14 mg/dL 9-23 [facility] Specific gravity Auto test s trip (U) [Rel density]Ordered By: Jen Garcia on 04-10-2022 Specific gravity (U) [Rel density] 1.016 1.001-1.030 [facility] Squamous epithelial cells de tection in urine sediment by light microscopyOrdered By: Jen Garcia on 04-10-2022 Epithelial cells.squamous LM Ql (Urine sed) 10-19 [HPF] 0-2 [facility] Urine bacteria detection by automated methodOrdered By: Jen Garcia on 04-10-2022 Bacteria Auto Ql (U) 2+ None Seen [facility] Urine clarity by refractomet ry automatedOrdered By: Jen Garcia on 04-10-2022 Clarity Refractometry automated (U) Cloudy Clear [facility] Urine culture routineOrdered By: Jen Garcia on 04-10-2022 Bacteria identified Cx Nom (U) 2 Days [facility] Urine glucose measurement by automated test strip (mass/volume)Ordered By: Jen Garcia on 04-10-2022 Glucose Auto test strip (U) [Mass/Vol] Normal mg/dL Normal [facility] Urine hemoglobin detection b y automated test stripOrdered By: Jen Garcia on 04-10-2022 Hemoglobin Auto test strip Ql (U) Negative Negative [facility] Urine leukocyte esterase det ection by automated test stripOrdered By: Jen Garcia on 04-10-2022 Leukocyte esterase Auto test strip Ql (U) 3+ Negative [facility] Urobilinogen Auto test strip (U) [Mass/Vol]Ordered By: Jen Garcia on 04-10-2022 Urobilinogen (U) [Mass/Vol] Normal mg/dL Normal [facility] WBC Auto (Bld) [#/Vol]Ordere d By: Jen Garcia on 04-10-2022 WBC (Bld) [#/Vol] 8.6 10*3/uL 3.8-11.6 [facility] pH Auto test strip (U)Ordere d By: Jen Garcia on 04-10-2022 pH (U) 5.5 [pH] 5.0-9.0 [facility] XR ANKLE RT MIN 3 [...] LIZZIE YU Date: 2022-03-28 22:01 Normal [facility] XR SHOULDER LT 2V or >on [...] JASS GRISSOM Date: 2022-02-10 21:41 Normal [facility] CBC AUTO DIFFon 01-28-2022 BASO # 0.0 103/ul Normal 0.0-0.1 [facility] Comment on above: Performed By: #### C BC ####[facility] [address] [place] [address]Dr. Douglas Tucker Basophils/100 WBC (Bld) 0.7 % Normal 0.2-2.0 [facility] Comment on above: Performed By: #### C BC ####[facility] [address] [place] [address]Dr. Douglas Tucker EO # 0.1 103/ul Normal 0.0-0.7 [facility] Comment on above: Performed By: #### C BC ####[facility] [address] [place], [place] [address]Dr. Douglas Tucker Eosinophils/100 WBC (Bld) 2.2 % Normal 0.9-7.0 [facility] Comment on above: Performed By: #### C BC ####[facility] [address] [place] [address]Dr. Douglas Tucker Erythrocyte distribution width (RBC) [Ratio] 12.0 % Normal 11.0-15.0 [facility] Comment on above: Performed By: #### C BC ####[facility] [address] [place] [address]Dr. Douglas Tucker Hematocrit (Bld) [Volume fraction] 41.3 % Normal 36.0-48.0 [facility] Comment on above: Performed By: #### C BC ####[facility] [address] [place] [id number]. Douglas Tucker Hemoglobin (Bld) [Mass/Vol] 13.7 g/dL Normal 12.0-16.0 [facility] Comment on above: Performed By: #### C BC ####[facility] [address] [place] [id number]. Douglas Tucker IG # 0.01 10e3/ul Normal 0.00-0.03 [facility] Comment on above: Performed By: #### C BC ####[facility] [address] [place] [address]Dr. Douglas Tucker IG % 0.2 % Normal 0.0-0.5 [facility] Comment on above: Performed By: #### C BC ####[facility] [address] [place] [address]Dr. Douglas Tucker LYMPH # 2.1 103/ul Normal 1.2-3.8 [facility] Comment on above: Performed By: #### C BC ####[facility] [address] [place], [place] [address]Dr. Douglas Tucker Lymphocytes/100 WBC (Bld) 38.5 % Normal 20.5-60.0 [facility] Comment on above: Performed By: #### C BC ####[facility] [address] [place] [address]Dr. Douglas Tucker MANUAL DIFF REQ NO Normal [facility] Comment on above: Performed By: #### C BC ####[facility] U[address] [place], [place] [address]Dr. Douglas Tucker MCH (RBC) [Entitic mass] 31.9 pg Normal 26.7-34.0 [facility] Comment on above: Performed By: #### C BC ####[facility] Un[address] [place], [place] [address]Dr. Douglas Tucker MCHC (RBC) [Mass/Vol] 33.2 g/dL Normal 29.9-35.2 [facility] Comment on above: Performed By: #### C BC ####[facility] [address] [place] [address]Dr. Douglas Tucker MCV (RBC) [Entitic vol] 96.0 fL Normal 81.0-99.0 [facility] Comment on above: Performed By: #### C BC ####[facility] [address] [place] [address]Dr. Douglas Tucker MONO # 0.4 103/ul Normal 0.3-0.8 [facility] Comment on above: Performed By: #### C BC ####[facility] [address] [place] [address]Dr. Douglas Tucker Monocytes/100 WBC (Bld) 7.8 % Normal 1.7-12.0 [facility] Comment on above: Performed By: #### C BC ####[facility] I[address] [place], [place] [address]Dr. Douglas Tucker NEUT # 2.8 103/ul Normal 1.4-6.5 [facility] Comment on above: Performed By: #### C BC ####[facility] [address] [place], [place] [address]Dr. Douglas Tucker Neutrophils/100 WBC (Bld) 50.6 % Normal 43.0-75.0 [facility] Comment on above: Performed By: #### C BC ####[facility] [address] [place], [place] [address]Dr. Douglas Tucker Platelet mean volume (Bld) [Entitic vol] 10.7 fL Normal 9.5-13.5 [facility] Comment on above: Performed By: #### C BC ####[facility] [address] [place] [address]Dr. Douglas Garrett PLT 189 103/ul Normal 150-450 [facility] Comment on above: Performed By: #### C BC ####[facility] [address] [place], [place] [address]Dr. Douglas Garrett RBC 4.30 106/ul Normal 4.20-5.40 [facility] Comment on above: Performed By: #### C BC ####[facility] [address] [place], [place] [address]DrHernandez Tucker WBC 5.5 103/ul Normal 4.0-11.0 [facility] Comment on above: Performed By: #### C BC ####[facility] [address] [place] [address]Dr. Douglas Tucker CULTURE URINEon 01-28-2022 CULTURE URINE Culture Observations : MODERATE GROWTH OF MIXED GENITAL CRICKET. NO POTENTIAL PATHOGENS SEEN. Normal [facility] Comment on above: Performed By: #### U RCX ####[facility] [address] [place] [address]Dr. Douglas Tucker ER URINE PROFILEon Bilirubin Ql (U) Negative Normal NEGATIVE [facility] Comment on above: Performed By: #### U MICRO, ERUR #### [facility] [address] [place] [address] Dr. Douglas Tucker Clarity (U) CLEAR Normal CLEAR [facility] Comment on above: Performed By: #### U MICRO, ERUR #### [facility] [address] [place] [address] Dr. Douglas Tucker Color (U) LT. YELLOW Normal YELLOW [facility] Comment on above: Performed By: #### U MICRO, ERUR #### [facility] [address] [place] [address] [address] Douglas Tucker ERUAHD A micrscopic examina tion will be performed if indicated. Normal [facility] Comment on above: Performed By: #### U MICRO, ERUR #### [facility] [address] [place] [address] [address] Douglas Tucker Glucose Ql (U) Negative Normal NEGATIVE [facility] Comment on above: Performed By: #### U MICRO, ERUR #### [facility] [address] [place] [address] [address] Douglas Tucker Hemoglobin Ql (U) TRACE-INTACT Abnormal NEGATIVE [facility] Comment on above: Performed By: #### U MICRO, ERUR #### [facility] [address] [place] [address] Dr. Douglas Tucker Ketones Ql (U) Negative Normal NEGATIVE [facility] Comment on above: Performed By: #### U MICRO, ERUR #### [facility] [address] [place] [address] [address] Douglas Tucker LEUKOCYTES TRACE Abnormal NEGATIVE [facility] Comment on above: Performed By: #### U MICRO, ERUR #### [facility] [address] [place] [address] Dr. Douglas Tucker Nitrite Ql (U) Negative Normal NEGATIVE [facility] Comment on above: Performed By: #### U MICRO, ERUR #### [facility] [address] [place] [address] Dr. Douglas Tucker pH (U) 6.5 [pH] Normal 5-9 [facility] Comment on above: Performed By: #### U MICRO, ERUR #### [facility] [address] [place] [address] Dr. Douglas Tucker SPEC GRAVITY 1.020 Normal 1.005-<=1.0 25 [facility] Comment on above: Performed By: #### U MICRO, ERUR #### [facility] [address] [place] [address] Dr. Douglas Tucker UA PROTEIN Negative Normal NEGATIVE/ TRACE [facility] Comment on above: Performed By: #### U MICRO, ERUR #### [facility] [address] [place] [address] Dr. Douglas Tucker UR MICRO IND INDICATED Normal [facility] Comment on above: Performed By: #### U MICRO, ERUR #### [facility] [address] [place] [address] Dr. Douglas Tucker Urobilinogen Qn (U) 0.2 {Elba'U}/dL Normal 0.2 - 1. 0 [facility] Comment on above: Performed By: #### U MICRO, ERUR #### [facility] [address] [place] [address] Dr. Douglas Tucker PROF 14(COMP METB)on 022 Albumin [Mass/Vol] 3.9 g/dL Normal 3.4-5.0 [facility] Comment on above: Performed By: #### C MP ####[facility] [address] [place] [id number]. Douglas Tucker Albumin/Globulin [Mass ratio] 1.1 {ratio} Normal [facility] Comment on above: Performed By: #### C MP ####[facility] [address] [place] [address]Dr. Douglas Tucker ALP [Catalytic activity/Vol] 52 U/L Normal 46-116 [facility] Comment on above: Performed By: #### C MP ####[facility] [address] [place], [place] [address]Dr. Douglas Garrett ALT [Catalytic activity/Vol] 31 U/L Normal 14-59 [facility] Comment on above: Performed By: #### C MP ####[facility] [address] [place] [address]Dr. Douglas Tucker Anion gap [Moles/Vol] 9.6 mmol/L Normal [facility] Comment on above: Performed By: #### C MP ####[facility] [address] [place], [place] [address]Dr. Douglas Garrett AST [Catalytic activity/Vol] 15 U/L Normal 15-37 [facility] Comment on above: Performed By: #### C MP ####[facility] [address] [place], [place] [address]Dr. Umuana Tucker Bilirubin [Mass/Vol] 0.3 mg/dL Normal 0.2-1.0 [facility] Comment on above: Performed By: #### C MP ####[facility] [address]fh[address] [place], [place] [address]Dr. Umuana Tucker Calcium [Mass/Vol] 8.6 mg/dL Normal 8.5-10.1 [facility] Comment on above: Performed By: #### C MP ####[facility] [address] [place], [place] [address]Dr. Douglas Tucker Chloride [Moles/Vol] 107 mmol/L Normal 98-107 [facility] Comment on above: Performed By: #### C MP ####[facility] Pcx[address] [place], [place] [address]Dr. Douglas Garrett CO2 [Moles/Vol] 27.4 mmol/L Normal 21.0-32.0 [facility] Comment on above: Performed By: #### C MP ####[facility] [address] [place] [address]Dr. Douglas Garrett Creatinine [Mass/Vol] 0.90 mg/dL Normal 0.55-1.02 [facility] Comment on above: Performed By: #### C MP ####[facility] [address] [place] [address]Dr. Douglas Garrett EGFR-AF ETHIOPIAN >60 Normal >=60 [facility] Comment on above: Performed By: #### C MP ####[facility] Xatesqi[address] [place], [place] [address]Dr. Umuana Garrett EGFR-NON AF ETHIOPIAN >60 Normal >=60 [facility] Comment on above: Performed By: #### C MP ####[facility] [address] [place], [place] [address]Dr. Umuana Tucker Globulin (S) [Mass/Vol] 3.4 g/dL Normal [facility] Comment on above: Performed By: #### C MP ####[facility] [address] [place], [place] [address]Dr. Douglas Tucker Glucose [Mass/Vol] 90 mg/dL Normal 74-106 [facility] Comment on above: Performed By: #### C MP ####[facility] [address] [place], [place] [address]Dr. Douglas Tucker Potassium [Moles/Vol] 4.0 mmol/L Normal 3.5-5.1 [facility] Comment on above: Performed By: #### C MP ####[facility] [address] [place], [place] [address]Dr. Douglas Tucker Protein [Mass/Vol] 7.3 g/dL Normal 6.4-8.2 [facility] Comment on above: Performed By: #### C MP ####[facility] I[address] [place], [place] [address]Dr. Douglas Tucker Sodium [Moles/Vol] 140 mmol/L Normal 136-145 [facility] Comment on above: Performed By: #### C MP ####[facility] [address] [place] [address]DrHernandez Tucker Urea nitrogen [Mass/Vol] 10.0 mg/dL Normal 7.0-18.0 [facility] Comment on above: Performed By: #### C MP ####[facility] [address] [place] [address]DrHernandez Tucker Urea nitrogen/Creatinine [Mass ratio] 11.1 mg/mg Normal [facility] Comment on above: Performed By: #### C MP ####[facility] [address] [place] [address]Dr. Douglas Tucker URINE MICROSCOPIC ONLYon BACTERIA MODERATE Abnormal NONE SEEN [facility] Comment on above: Performed By: #### U MICRO, ERUR #### [facility] [address] [place] [address] Dr. Douglas Tucker Bacteria identified Cx Nom (U) INDICATED Normal [facility] Comment on above: Performed By: #### U MICRO, ERUR #### [facility] [address] [place] [address] [address] Douglas Tucker CAST NONE SEEN Normal NONE SEEN [facility] Comment on above: Performed By: #### U MICRO, ERUR #### [facility] [address] [place] [address] [address] Douglas Tucker Crystals LM Nom (Urine sed) NONE SEEN Normal NONE SEEN [facility] Comment on above: Performed By: #### U MICRO, ERUR #### [facility] [address] [place] [address] [address] Douglas Tucker Epithelial cells LM Ql (Urine sed) FEW Abnormal NONE SEEN /RARE [facility] Comment on above: Performed By: #### U MICRO, ERUR #### [facility] [address] [place] [address] [address] Douglas Tucker MUCOUS NONE SEEN Normal NONE SEEN [facility] Comment on above: Performed By: #### U MICRO, ERUR #### [facility] [address] [place] [address] [address] Douglas Tucker RBC 0-2 Normal 0-2 [facility] Comment on above: Performed By: #### U MICRO, ERUR #### [facility] [address] [address] [address] Douglas Tucker WBC 2-5 Abnormal NONE SEEN [facility] Comment on above: Performed By: #### U MICRO, ERUR #### [facility] [address] [place] [address] [address] Douglas Tucker US KIDNEYSon 01-28-2022 US [...] RICHELLE BUSH Date: 2022-01-28 13:45 Normal [facility] CBC AUTO DIFFon 10-29-2021 BASO # 0.1 103/ul Normal 0.0-0.1 [facility] Comment on above: Performed By: #### C BC ####[facility] [address] [place] [id number]. Douglas Tucker Basophils/100 WBC (Bld) 0.8 % Normal 0.2-2.0 [facility] Comment on above: Performed By: #### C BC ####[facility] [address] [place] [id number]. Douglas Tucker EO # 0.2 103/ul Normal 0.0-0.7 [facility] Comment on above: Performed By: #### C BC ####[facility] [address] [place] [id number]. Douglas Tucker Eosinophils/100 WBC (Bld) 3.0 % Normal 0.9-7.0 [facility] Comment on above: Performed By: #### C BC ####[facility] [address] [place] [address]Dr. Douglas Tucker Erythrocyte distribution width (RBC) [Ratio] 12.2 % Normal 11.0-15.0 [facility] Comment on above: Performed By: #### C BC ####[facility] [address] [place], [place] [address]Dr. Douglas Tucker Hematocrit (Bld) [Volume fraction] 39.9 % Normal 36.0-48.0 [facility] Comment on above: Performed By: #### C BC ####[facility] [address] [place], [place] [address]Dr. Douglas Tucker Hemoglobin (Bld) [Mass/Vol] 13.5 g/dL Normal 12.0-16.0 [facility] Comment on above: Performed By: #### C BC ####[facility] [address] [place], [place] [address]Dr. Douglas Tucker IG # 0.01 10e3/ul Normal 0.00-0.03 [facility] Comment on above: Performed By: #### C BC ####[facility] Gavgmmldxs[address] [place], [place] [address]Dr. Douglas Tucker IG % 0.2 % Normal 0.0-0.5 [facility] Comment on above: Performed By: #### C BC ####[facility] Nylgwfxrbw[address] [place], [place] [address]Dr. Douglas Tucker LYMPH # 3.0 103/ul Normal 1.2-3.8 [facility] Comment on above: Performed By: #### C BC ####[facility] Ckgkflbhq[address] [place], [place] [address]Dr. Douglas Tucker Lymphocytes/100 WBC (Bld) 44.6 % Normal 20.5-60.0 [facility] Comment on above: Performed By: #### C BC ####[facility] Gydvzzvnin1865 [place] [id number]. Douglas Tucker MANUAL DIFF REQ NO Normal [facility] Comment on above: Performed By: #### C BC ####[facility] Zacdcycnmm6725 [place] [id number]. Douglas Tucker MCH (RBC) [Entitic mass] 32.1 pg Normal 26.7-34.0 [facility] Comment on above: Performed By: #### C BC ####[facility] Mqbnngaiwz85[address] [place] [address]Dr. Douglas Tucker MCHC (RBC) [Mass/Vol] 33.8 g/dL Normal 29.9-35.2 [facility] Comment on above: Performed By: #### C BC ####[facility] Jbsmkibupm75[address] [place] [address]Dr. Umuana Tucker MCV (RBC) [Entitic vol] 95.0 fL Normal 81.0-99.0 [facility] Comment on above: Performed By: #### C BC ####[facility] Gpmuurdqtz1764 [place] [address]Dr. Douglas Garrett MONO # 0.5 103/ul Normal 0.3-0.8 [facility] Comment on above: Performed By: #### C BC ####[facility] C[address]vxv[address]rv[address] [place], [place] [address]Dr. Umuana Tucker Monocytes/100 WBC (Bld) 7.8 % Normal 1.7-12.0 [facility] Comment on above: Performed By: #### C BC ####[facility] Cmkgakvcdb0460 [place] [id number]. Umuana Garrett NEUT # 2.9 103/ul Normal 1.4-6.5 [facility] Comment on above: Performed By: #### C BC ####[facility] Uzfsmruzjf5775 [place] [address]Dr. Douglas Tucker Neutrophils/100 WBC (Bld) 43.6 % Normal 43.0-75.0 [facility] Comment on above: Performed By: #### C BC ####[facility] Renotepcwh4560 [place] [id number]. Umuana Tucker Platelet mean volume (Bld) [Entitic vol] 11.1 fL Normal 9.5-13.5 [facility] Comment on above: Performed By: #### C BC ####[facility] Xcnpiydjin0659 [place] [id number]. Umuana Tucker PLT 188 103/ul Normal 150-450 [facility] Comment on above: Performed By: #### C BC ####[facility] Wzpg[address]krwd[address] [place], [place] [address]Dr. Douglas Tucker RBC 4.20 106/ul Normal 4.20-5.40 [facility] Comment on above: Performed By: #### C BC ####[facility] Wuyiqswpfk86[address] [place] [address]Dr. Douglas Tucker WBC 6.6 103/ul Normal 4.0-11.0 [facility] Comment on above: Performed By: #### C BC ####[facility] Wbcgscokcx[address] [place], [place] [address]Dr. Douglas Tucker MAGNESIUMon 10-29-2021 Magnesium [Mass/Vol] 2.1 mg/dL Normal 1.8-2.4 [facility] Comment on above: Performed By: #### M G, CMP ####[facility] Bgpolznich[address] [place], [place] [address]Dr. Douglas Tucker PROF 14(COMP METB)on 022 Albumin [Mass/Vol] 3.6 g/dL Normal 3.4-5.0 [facility] Comment on above: Performed By: #### M G, CMP ####[facility] Mixbygbenp[address] [place], [place] [address]Dr. Douglas Tucker Albumin/Globulin [Mass ratio] 1.2 {ratio} Normal [facility] Comment on above: Performed By: #### M G, CMP ####[facility] Expeseqolt46[address] [place], [place] [address]Dr. Douglas Tucker ALP [Catalytic activity/Vol] 61 U/L Normal 46-116 [facility] Comment on above: Performed By: #### M G, CMP ####[facility] Zpqcwnozqd0224 [place] [address]Dr. Umuana Garrett ALT [Catalytic activity/Vol] 25 U/L Normal 14-59 [facility] Comment on above: Performed By: #### M G, CMP ####[facility] Bmnnroogqa[address] [place], [place] [address]Dr. Douglas Tucker Anion gap [Moles/Vol] 12.4 mmol/L Normal [facility] Comment on above: Performed By: #### M G, CMP ####[facility] Cqbegclldg[address] [place], [place] [address]Dr. Douglas Tucker AST [Catalytic activity/Vol] 23 U/L Normal 15-37 [facility] Comment on above: Performed By: #### Alyse Yañez, CMP ####[facility] Itbnppmhqz[address] [place], [place] [address]Dr. Douglas Tucker Bilirubin [Mass/Vol] 0.3 mg/dL Normal 0.2-1.0 [facility] Comment on above: Performed By: #### Alyse Yañez, CMP ####[facility] Mbndikqh[address] [place], [place] [address]Dr. Douglas Tucker Calcium [Mass/Vol] 8.5 mg/dL Normal 8.5-10.1 [facility] Comment on above: Performed By: #### Alyse Yañez, CMP ####[facility] Xefcdj[address]us[address] [place], [place] [address]Dr. Douglas Tucker Chloride [Moles/Vol] 106 mmol/L Normal 98-107 [facility] Comment on above: Performed By: #### Alyse G, CMP ####[facility] Wzwhq[address] [place], [place] [address]Dr. Douglas Tucker CO2 [Moles/Vol] 22.8 mmol/L Normal 21.0-32.0 [facility] Comment on above: Performed By: #### Alyse G, CMP ####[facility] Pnozr[address] [place], [place] [address]Dr. Douglas Tucker Creatinine [Mass/Vol] 0.76 mg/dL Normal 0.55-1.02 [facility] Comment on above: Performed By: #### M G, CMP ####[facility] Thaqvuwvli[address] [place] [id number]. Douglas Garrett EGFR-AF ETHIOPIAN >60 Normal >=60 [facility] Comment on above: Performed By: #### M G, CMP ####[facility] Abzobbdxlb5137 [place] [id number]. Douglas Garrett EGFR-NON AF ETHIOPIAN >60 Normal >=60 [facility] Comment on above: Performed By: #### M G, CMP ####[facility] Clrwgywdjb3347 [place] [id number]. Douglas Tucker Globulin (S) [Mass/Vol] 3.0 g/dL Normal [facility] Comment on above: Performed By: #### M G, CMP ####[facility] Prtwcjpvyd2556 [place] [phone]. Douglas Tucker Glucose [Mass/Vol] 110 mg/dL Critically high 74-106 [facility] Comment on above: Performed By: #### M G, CMP ####[facility] Uzfpkptdff5[address] [place] [id number]. Douglas Tucker Potassium [Moles/Vol] 4.2 mmol/L Normal 3.5-5.1 [facility] Comment on above: Performed By: #### M G, CMP ####[facility] Tmkdshknwu7952 [place] [phone]. Douglas Tucker Protein [Mass/Vol] 6.6 g/dL Normal 6.4-8.2 [facility] Comment on above: Performed By: #### M G, CMP ####[facility] Sdmbdahzfe0291 [place] [id number]. Douglas Tucker Sodium [Moles/Vol] 137 mmol/L Normal 136-145 [facility] Comment on above: Performed By: #### M G, CMP ####[facility] Fqshpsivjc8112 [place] [id number]. Douglas Tucker Urea nitrogen [Mass/Vol] 12.0 mg/dL Normal 7.0-18.0 [facility] Comment on above: Performed By: #### M G, CMP ####[facility] Wh[address]32[address] [place], [place] [address]Zz. Douglas Tucker Urea nitrogen/Creatinine [Mass ratio] 15.8 mg/mg Normal [facility] Comment on above: Performed By: #### M G, CMP ####[facility] Md[address]qcdfv50[address] [place], [place] [address]Hz. Douglas Tucker [facility] HNO ID: [id number] Author: RT Pati(R) Service: Radiology Author Type: [...] RT Pati(R) March 07, 2021 5:32 PM [facility] 03-07-2021 [facility] HNO ID: [id number] Author: Rosalie Haile MD Service: ? Author [...] known as: ZANAFLEX Rosalie Haile MD Normal [facility] HISTORY PHYSICALon HISTORY PHYSICAL HNO ID: [id number] Author: Rosalie Halie MD Service: ? Author Type: Physician Type: HANDP Filed: 03/11/2021 7:31 PM Note Text: [facility] : 1990 AGE: 31 SEX: F CSN: [id number] [facility]: [facility] LOCATION: [facility] ATTENDING PHYSICIAN: Rosalie Haile M.D. ? ? DATE OF SERVICE: 03/06/2021 ? ? SUBJECTIVE: Patient with a history of diabetes and obesity. Admitted to the hospital with seizure. ?This is a 31 year old female with a hx of seizures, diabetes, anxiety, and conversion disorder, who [place] [facility] [place]. She and her boyfriend had just arrived [...] WBC (k/uL) Date Value 03/06/2021 6.79 [facility] consultants notes reviewed Most recent images Reviewed Last EKG/Rhythm reviewed 03/06/21 1930 03/06/21 2100 03/06/21221103/06/212226 BP: 123/74 118/64 115/72 Pulse: 68 62 63 Resp: Temp: 36.8 ?C (98.2 ?F) TempSrc: Oral [...] goiter No carotid bruits. Rosalie Haile MD [facility] MRI BRAIN WO IVCONon 021 MRI [...] Routine noncontrast MRI protocol including diffusion images. Zykq-lu-qkbdgv MRV brain with post-processing performed at the [...] intravenous contrast. Patent major dural venous sinuses. As400 Consultant: PSCB Transcribe Date/Time: Mar 07 2021 5:46P Dictated by : HOLLAND MUELLER MD This examination was interpreted and the report reviewed and electronically signed by: HOLLAND MUELLER MD on Mar 07 2021 5:51PM EST [id number] Normal [facility] MRV BRAIN WO IVCONon 021 MRV [...] Routine noncontrast MRI protocol including diffusion images. Csqo-ic-gmnjeh MRV brain with post-processing performed at the [...] intravenous contrast. Patent major dural venous sinuses. As400 Consultant: PSCB Transcribe Date/Time: Mar 07 2021 5:46P Dictated by : HOLLAND MUELLER MD This examination was interpreted and the report reviewed and electronically signed by: HOLLAND MUELLER MD on Mar 07 2021 5:51PM EST [id number] [facility] NURSING PROGon 03-07-2021 NURSING PROG HNO ID: [id number] Author: Toya Pompa RN Service: ? Author Type: Registered Nurse Type: Nursing Progress Note Filed: 03/07/2021 11:35 PM Note Text: Nursing Progress Note Patient Name: Sully Enriquez Patient Location: Pt discharged, transferred via wheelchair to exit where was picking her up. IV/tele removed. All belongings accounted for. This note was completed by: Toya Pompa [facility] NURSING PROG HNO ID: [id number] Author: Cordelia Faye RN Service: Nursing Author [...] pitting edema BLE. Call light within reach. [facility] 1630 pt asks to be d/c today and have MRI as OP per neurology recs. Dr Haile paged. 1705 pt to MRI. Medicated with 25 mg of Atarax prior to MRI. [address] Haile to wait for MRI results. If neurology signs off after the MRI is resulted will reach dr Haile for d/c orders. [facility] This note was completed by: Cordelia Faye [facility] NURSING PROG HNO ID: [id number] Author: Breanne Reis RN Service: ? Author [...] This note was completed by: Smiley Raymundo [facility] NURSING PROG HNO ID: [id number] Author: Yoselin Cui RN Service: Nursing Author Type: Registered Nurse Type: Nursing Progress Note Filed: 03/06/2021 10:38 PM Note Text: Nursing Progress Note Patient Name: Sully Enriquez Patient Location: [place] [address]12 Transfer Note: Patient transferred into room/unit PKT-12 in stable condition. Actions taken: Alert and oriented x 3. Patient was an ED hold. Admission database completed. Call light in reach. [facility] will do physical and skin assessments and complete NPR and skin flow sheets. This note was completed by: Yoselin Cui [facility] ALLIED HEALTHon 03-06-2021 ALLIED HEALTH HNO ID: [id number] Author: RT Sanam(Jd) Service: ? Author Type: [...] PERIPHERAL IV DATA: Not applicable SIGNED BY: Radha Saeed RT(R) March 06, 2021 2:45 AM Normal [facility] CBC and Differentialon 03-06 Abs Baso 0.04 k/uL Normal <0.11 [facility] Comment on above: Performed By: #### C K, ALCO, CBCDIF, CMP, MG1 ####[address] Abs [place] 0.55 k/uL Normal <0.87 [facility] Comment on above: Performed By: #### C K, ALCO, CBCDIF, CMP, MG1 ####[place] [id number] Abs Neut 3.17 k/uL Normal 1.45-7.50 [facility] Comment on above: Performed By: #### C K, ALCO, CBCDIF, CMP, MG1 ####[place] [address] Absolute nRBC <0.01 Normal <0.01 [facility] Comment on above: Performed By: #### C K, ALCO, CBCDIF, CMP, MG1 ####[address] Basophils/100 WBC (Bld) 0.6 % Normal [facility] Comment on above: Performed By: #### C K, ALCO, CBCDIF, CMP, MG1 ####[address] DTYPE Auto Diff Normal [facility] Comment on above: Performed By: #### C K, ALCO, CBCDIF, CMP, MG1 ####[address] Eosinophils (Bld) [#/Vol] 0.17 10*3/uL Normal <0.46 [facility] Comment on above: Performed By: #### C K, ALCO, CBCDIF, CMP, MG1 ####[address] Eosinophils/100 WBC (Bld) 2.5 % Normal [facility] Comment on above: Performed By: #### C K, ALCO, CBCDIF, CMP, MG1 ####[place] [address] Erythrocyte distribution width (RBC) [Ratio] 12.0 % Normal 11.5-15.0 [facility] Comment on above: Performed By: #### C K, ALCO, CBCDIF, CMP, MG1 ####[place] [address] Hematocrit (Bld) [Volume fraction] 40.1 % Normal 36.0-46.0 [facility] Comment on above: Performed By: #### C K, ALCO, CBCDIF, CMP, MG1 ####[place] [address] Hemoglobin (Bld) [Mass/Vol] 13.2 g/dL Normal 11.5-15.5 [facility] Comment on above: Performed By: #### C K, ALCO, CBCDIF, CMP, MG1 ####[place] [address] Lymphocytes (Bld) [#/Vol] 2.85 10*3/uL Normal 1.00-4.00 [facility] Comment on above: Performed By: #### C K, ALCO, CBCDIF, CMP, MG1 ####[place] [address] Lymphocytes/100 WBC (Bld) 42.0 % Normal [facility] Comment on above: Performed By: #### C K, ALCO, CBCDIF, CMP, MG1 ####[place] [phone] MCH 31.8 pG Normal 26.0-34.0 [facility] Comment on above: Performed By: #### C K, ALCO, CBCDIF, CMP, MG1 ####[place] [phone] MCHC (RBC) [Mass/Vol] 32.9 g/dL Normal 30.5-36.0 [facility] Comment on above: Performed By: #### C K, ALCO, CBCDIF, CMP, MG1 ####[place] [phone] MCV (RBC) [Entitic vol] 96.6 fL Normal 80.0-100.0 [facility] Comment on above: Performed By: #### C K, ALCO, CBCDIF, CMP, MG1 ####[place] [phone] Monocytes/100 WBC (Bld) 8.1 % Normal [facility] Comment on above: Performed By: #### C K, ALCO, CBCDIF, CMP, MG1 ####[place] [phone] Neutrophils/100 WBC (Bld) 46.8 % Normal [facility] Comment on above: Performed By: #### C K, ALCO, CBCDIF, CMP, MG1 ####[place] [phone] NRBCs 0.0 /100 WBC Normal 0 [facility] Comment on above: Performed By: #### C K, ALCO, CBCDIF, CMP, MG1 ####[place] [phone] Platelet mean volume (Bld) [Entitic vol] 10.7 fL Normal 9.0-12.7 [facility] Comment on above: Performed By: #### C K, ALCO, CBCDIF, CMP, MG1 ####[place] [phone] Platelets (Bld) [#/Vol] 183 10*3/uL Normal 150-400 [facility] Comment on above: Performed By: #### C K, ALCO, CBCDIF, CMP, MG1 ####[place] [phone] RBC (Bld) [#/Vol] 4.15 10*6/uL Normal 3.90-5.20 [facility] Comment on above: Performed By: #### C K, ALCO, CBCDIF, CMP, MG1 ####[facility] [place], [place] [phone] WBC (Bld) [#/Vol] 6.79 10*3/uL Normal 3.70-11.00 [facility] Comment on above: Performed By: #### C K, ALCO, CBCDIF, CMP, MG1 ####[place] [address] [place], [place] [phone] CKon 03-06-2021 CK [Catalytic activity/Vol] 103 U/L Normal 30-220 [facility] Comment on above: Performed By: #### C K, ALCO, CBCDIF, CMP, MG1 ####[place] [address] [place], [place] [phone] CONSULTon 03-06-2021 CONSULT HNO ID: [id number] Author: Saravanan Yancey MD Service: Neurology General Author Type: Resident Type: Consults Filed: 03/06/2021 5:10 PM Note Text: ----- Attestation signed by Tim Sanches MD at 03/06/2021 9:16 PM [facility] STAFF PHYSICIAN NOTE OF PERSONAL [...] her had just deplaned coming back from [employer] x 3 days and she had not [...] [place] who is a family doctor in [facility], and she has noted hx of non-epileptic [...] [facility] (more content not included)... Normal [facility] CT BRAIN WO IVCONon 03-06-20 21 [...] Other: No depressed skull fracture is seen. Code Official (topogram) images: Non-diagnostic. IMPRESSION: No CT evidence of an acute intracranial abnormality. Other: details above. As400 Consultant: MAVERICK Transcribe Date/Time: Mar 06 2021 3:13A Dictated by : JENN MORENO MD This examination was interpreted and the report reviewed and electronically signed by: JENN MORENO MD on Mar 06 2021 3:15AM EST [id number] Normal [facility] Comp Metabolic Panelon 03-06 Albumin [Mass/Vol] 4.6 g/dL Normal 3.5-5.0 [facility] Comment on above: Performed By: #### C K, ALCO, CBCDIF, CMP, MG1 ####[facility] [place], [place] [phone] ALP [Catalytic activity/Vol] 67 U/L Normal 34-123 [facility] Comment on above: Performed By: #### C K, ALCO, CBCDIF, CMP, MG1 ####[place] [phone] ALT [Catalytic activity/Vol] 15 U/L Normal 0-45 [facility] Comment on above: Performed By: #### C K, ALCO, CBCDIF, CMP, MG1 ####[place] [phone] Anion gap [Moles/Vol] 10 mmol/L Normal 9-18 [facility] Comment on above: Performed By: #### C K, ALCO, CBCDIF, CMP, MG1 ####[place] [phone] AST [Catalytic activity/Vol] 15 U/L Normal 7-40 [facility] Comment on above: Performed By: #### C K, ALCO, CBCDIF, CMP, MG1 ####[place] [phone] Bilirubin [Mass/Vol] 0.2 mg/dL Normal 0.2-1.3 [facility] Comment on above: Performed By: #### C K, ALCO, CBCDIF, CMP, MG1 ####[place] [phone] Calcium [Mass/Vol] 9.3 mg/dL Normal 8.5-10.5 [facility] Comment on above: Performed By: #### C K, ALCO, CBCDIF, CMP, MG1 ####[place] [phone] Chloride [Moles/Vol] 106 mmol/L Normal 98-110 [facility] Comment on above: Performed By: #### C K, ALCO, CBCDIF, CMP, MG1 ####[place] [phone] CO2 [Moles/Vol] 25 mmol/L Normal 23-32 [facility] Comment on above: Performed By: #### C K, ALCO, CBCDIF, CMP, MG1 ####[phone] Creatinine [Mass/Vol] 0.99 mg/dL Normal 0.70-1.40 [facility] Comment on above: Performed By: #### C K, ALCO, CBCDIF, CMP, MG1 ####[place] [phone] eGFR- Amer. >60 Normal >60 [facility] Comment on above: Performed By: #### C K, ALCO, CBCDIF, CMP, MG1 ####[place] [phone] eGFR-All Other Races >60 Normal >60 [facility] Comment on above: Result Comment: eGFR [...] #### C K, ALCO, CBCDIF, CMP, MG1 ####[place] [phone] Glucose [Mass/Vol] 103 mg/dL High 65-100 [facility] Comment on above: Performed By: #### C K, ALCO, CBCDIF, CMP, MG1 ####[place] [phone] Potassium [Moles/Vol] 3.9 mmol/L Normal 3.5-5.0 [facility] Comment on above: Performed By: #### C K, ALCO, CBCDIF, CMP, MG1 ####[place] [phone] Protein [Mass/Vol] 7.1 g/dL Normal 6.0-8.4 [facility] Comment on above: Performed By: #### C K, ALCO, CBCDIF, CMP, MG1 ####[place] [address] [place], [place] [phone] Sodium [Moles/Vol] 141 mmol/L Normal 132-148 [facility] Comment on above: Performed By: #### C K, ALCO, CBCDIF, CMP, MG1 ####[place] [address] [place], [place] [phone] Urea nitrogen [Mass/Vol] 12 mg/dL Normal 8-25 [facility] Comment on above: Performed By: #### C K, ALCO, CBCDIF, CMP, MG1 ####[address] [phone] ED NOTEon 03-06-2021 ED NOTE HNO ID: [id number] Author: Isabell Olivares RN Service: ? Author Type: Registered Nurse Type: ED Notes Filed: 03/06/2021 9:38 PM Note Text: Report to JUS Reis. [facility] ED NOTE HNO ID: [id number] Author: Isabell Olivares RN Service: ? Author Type: Registered Nurse Type: ED Notes Filed: 03/06/2021 7:16 PM Note Text: Pt up to bedside commode in room with steady gait, pt back to bed, siderails up x 2. [facility] ED NOTE HNO ID: [id number] Author: Isabell Olivares RN Service: ? Author Type: Registered Nurse Type: ED Notes Filed: 03/06/2021 6:32 PM Note Text: Meal tray arrives at the bedside. [facility] ED NOTE HNO ID: [id number] Author: Isabell Olivares RN Service: ? Author Type: Registered Nurse Type: ED Notes Filed: 03/06/2021 6:02 PM Note Text: Pt encouraged to call for dinner tray. Pt reports her headache has improved. [facility] ED NOTE HNO ID: [id number] Author: Isabell Olivares RN Service: ? Author Type: Registered Nurse Type: ED Notes Filed: 03/06/2021 5:18 PM Note Text: Pt states much improvement to her headache, resting in the room with her family, lights dimmed for comfort. [facility] ED NOTE HNO ID: [id number] Author: Isabell Olivares RN Service: ? Author Type: Registered Nurse Type: ED Notes Filed: 03/06/2021 2:48 PM Note Text: Pt reports no improvement in her headache, pt resting with lights off and warm blankets with family at bedside. No new orders at this time. Neurology paged. [facility] ED NOTE HNO ID: [id number] Author: Isabell Olivares RN Service: ? Author Type: Registered Nurse Type: ED Notes Filed: 03/06/2021 2:25 PM Note Text: MRI form faxed to MRI. Pt states she has claustrophobia with MRI, Neurology paged. [facility] ED NOTE HNO ID: [id number] Author: Isabell Olivares RN Service: ? Author Type: Registered Nurse Type: ED Notes Filed: 03/06/2021 2:04 PM Note Text: MRI Screening form given to the patient. [facility] ED NOTE HNO ID: [id number] Author: Isabell Olivares RN Service: ? Author Type: Registered Nurse Type: ED Notes Filed: 03/06/2021 1:56 PM Note Text: Pt assisted onto and off the bedpan. [facility] ED NOTE HNO ID: [id number] Author: Isabell Olivares RN Service: ? Author Type: Registered Nurse Type: ED Notes Filed: 03/06/2021 1:56 PM Note Text: Pt accucheck 100, meal tray at bedside. [facility] ED NOTE HNO ID: [id number] Author: Isabell Olivares RN Service: ? Author Type: Registered Nurse Type: ED Notes Filed: 03/06/2021 1:39 PM Note Text: Neurology at bedside with the patient. [facility] ED NOTE HNO ID: [id number] Author: Isabell Olivares RN Service: ? Author Type: Registered Nurse Type: ED Notes Filed: 03/06/2021 1:26 PM Note Text: Verbal order from Dr. Haile for 25mg PO benadryl [facility] ED NOTE HNO ID: [id number] Author: Isabell Olivares RN Service: ? Author Type: Registered Nurse Type: ED Notes Filed: 03/06/2021 11:20 AM Note Text: Pt resting in bed with seizure pads in place, pt family member sleeping in the bed with the patient, pt family member asked to not be in the bed with the patient for patient safety. [facility] ED NOTE HNO ID: [id number] Author: Jade Forte RN Service: ? Author Type: Registered Nurse Type: ED Notes Filed: 03/06/2021 11:13 AM Note Text: Patient report given to JUS Whyte [facility] ED NOTE HNO ID: [id number] Author: Isabell Olivares RN Service: ? Author Type: Registered Nurse Type: ED Notes Filed: 03/06/2021 11:02 AM Note Text: Assumed care of the patient at this time, received report from JUS Hansen. Plan of Care: - maintain patient comfort, safety and privacy - monitor for changes in condition - bed locked, low position, siderails up - call light within reach [facility] ED NOTE HNO ID: [id number] Author: Jade Forte RN Service: ? Author Type: Registered Nurse Type: ED Notes Filed: 03/06/2021 11:05 AM Note Text: Patient reports continuing to have headache. Spouse also reports had another few second seizure. House paged. [facility] ED NOTE HNO ID: [id number] Author: Jade Forte RN Service: ? Author Type: Registered Nurse Type: ED Notes Filed: 03/06/2021 10:11 AM Note Text: Called lab, breakfast tray ordered [facility] ED NOTE HNO ID: [id number] Author: Jade Forte RN Service: ? Author Type: Registered Nurse Type: ED Notes Filed: 03/06/2021 8:43 AM Note Text: Patient placed on bedpan. Patient and sheets soiled. Patient cleaned, linens changed [facility] ED NOTE HNO ID: [id number] Author: Jade Forte RN Service: ? Author Type: Registered Nurse Type: ED Notes Filed: 03/06/2021 8:31 AM Note Text: Answered patient call light. Patient requesting bedpan. Patient reports patient just had seizure . House paged and returned call. [facility] ED NOTE HNO ID: [id number] Author: Jade Forte RN Service: ? Author Type: Registered Nurse Type: ED Notes Filed: 03/06/2021 7:39 AM Note Text: Patient resting in bed. Declines breakfast at this time. Reports headache and nausea. House paged. [facility] ED NOTE HNO ID: [id number] Author: Jade Forte RN Service: ? Author Type: Registered Nurse Type: ED Notes Filed: 03/06/2021 7:07 AM Note Text: Patient report received from JUS Schuler [facility] ED PROV NOTEon 03-06-2021 ED PROV NOTE HNO ID: [id number] Author: Adeel Mauro MD Service: Hospital Medicine [...] (*) Negative (more content not included)... Normal [facility] Ethanolon 03-06-2021 Ethanol [Mass/Vol] mg/dL Normal <11 [facility] Comment on above: Performed By: #### C K, ALCO, CBCDIF, CMP, MG1 ####[facility] [place], [place] [phone] Expedited [id number] 03-06-20 21 SARS-CoV-2 (COVID-19) RNA AZ+probe Ql (Unsp spec) UPPER RESPIRATORY TRACT SWAB Normal [facility] Comment on above: Performed By: #### E XCOVD #### [facility] [address] [place], [place] [id number] SARS-CoV-2 (COVID-19) RNA AZ+probe Ql (Unsp spec) Negative for COVID19 (SARS CoV2) by RT-PCR or equivalent method. Normal Negative for COVID19 (SARS CoV2) by RT-PCR or equivalent method. [facility] Comment on above: Result Comment: This test has been authorized by FDA under an Emergency Use Authorization (EUA). Performed By: #### E XCOVD #### [facility] [address] [place] [address] HCG Qual, Urineon 03-06-2021 Beta HCG ( test) Ql (U) Negative Normal Negative [facility] Comment on above: Performed By: #### U HCG ####[facility] [place], [place] [phone] HISTORY PHYSICALon 1 HISTORY PHYSICAL HNO ID: [id number] Author: Adonis Mahoney MD Service: General Internal Medicine Author Type: Physician Type: HANDP Filed: 03/06/2021 6:51 AM Note Text: HISTORY AND PHYSICAL EXAMINATION * SERVICE DATE: 03/06/2021 PRIMARY CARE PHYSICIAN: Keli Strickland NP Subjective CHIEF COMPLAINT: Seizures HPI: This is a 31 year old female with a hx of seizures, diabetes, anxiety, and conversion disorder, who reportedly had a seizure at the airport [facility]. She and her boyfriend had [...] March 06, 2021 TIME: 6:08 AM Normal [facility] Magnesiumon 03-06-2021 Magnesium [Mass/Vol] 2.1 mg/dL Normal 1.7-2.6 [facility] Comment on above: Performed By: #### C K, ALCO, CBCDIF, CMP, MG1 ####[facility] [place], [place] [phone] TSHon 03-06-2021 TSH Qn 3.170 m[IU]/L Normal 0.270-4.200 [facility] Comment on above: Result Comment: If [...] E, et al. 2017 Guidelines of the [place] [employer] for the Diagnosis and Management of Thyroid Disease during and the . Thyroid, 2017:27:3:315-389. Performed By: #### T SH ####[place] [address] Toxicology Screen,Uron 03-06 Amphetamines, Urine Negative Normal Negative [facility] Comment on above: Result Comment: Cuto ff threshold at 1000 ng/mL. Performed By: #### U TOX2, UAWMIC #### [place] [address] Barbiturates, Urine Negative Normal Negative [facility] Comment on above: Result Comment: Cuto ff threshold at 200 ng/mL. Performed By: #### U TOX2, UAWMIC #### [place] [address] Benzodiazepines, Ur Negative Normal Negative [facility] Comment on above: Result Comment: Cuto ff threshold at 200 ng/mL. Performed By: #### U TOX2, UAWMIC #### [place] [address] Cannabinoids, Urine Negative Normal Negative [facility] Comment on above: Result Comment: Cuto ff threshold at 50 ng/mL. Performed By: #### U TOX2, UAWMIC #### [place] [address] Cocaine, Urine Negative Normal Negative [facility] Comment on above: Result Comment: Cuto ff threshold at 300 ng/mL. Performed By: #### U TOX2, UAWMIC #### [place] [phone] Ethanol, Urine <11 Normal <11 [facility] Comment on above: Performed By: #### U TOX2 UAWMIC #### [place] [phone] Opiates, Urine Negative Normal Negative [facility] Comment on above: Result Comment: Cuto ff threshold at 300 ng/mL. Performed By: #### U TOX2 UAWMIC #### [place] [phone] Oxycodone, Urine Negative Normal Negative [facility] Comment on above: Result Comment: Cuto [...] on the same specimen through Client Services ([phone]) if contacted within 48 hours of initial testing. [1]Substance Abuse and Mental Health Services Administration (2012). Clinical Drug Testing in Primary Care Technical Assistance Publication Series 32. Department of Health and Human Services, [place], p.10. Performed By: #### U TOX2 UAWMIC #### [place] [phone] Phencyclidine, Urine Negative Normal Negative [facility] Comment on above: Result Comment: Cuto ff threshold at 25 ng/mL. Performed By: #### U TOX2 UAWMIC #### [place] [phone] Urinalysis with Microscopico n 03-06-2021 Bacteria Rare Critically abnormal Negative [facility] Comment on above: Performed By: #### U TOX2 UAWMIC #### [place] [phone] Bilirubin, Urine Negative Normal Negative [facility] Comment on above: Performed By: #### U TOX2, UAWMIC #### [place] [phone] Clarity (U) Clear Normal Clear [facility] Comment on above: Performed By: #### U TOX2, UAWMIC #### [place] [phone] Color (U) Colorless Critically abnormal Yellow [facility] Comment on above: Performed By: #### U TOX2, UAWMIC #### [place] [phone] Comments SEE COMMENT Normal [facility] Comment on above: Result Comment: Micr oscopic Examination Performed Performed By: #### U TOX2, UAWMIC #### [address] Epithelial cells LM Ql (Urine sed) SEE COMMENT Critically abnormal Negative [facility] Comment on above: Result Comment: Rare Squamous Epithelial Cells Performed By: #### U TOX2, UAWMIC #### [place] [phone] Glucose Ql (U) Negative Normal Negative [facility] Comment on above: Performed By: #### U TOX2, UAWMIC #### [place] [phone] Hemoglobin/Blood,Ur Negative Normal Negative [facility] Comment on above: Performed By: #### U TOX2, UAWMIC #### [place] [phone] Ketones Ql (U) Negative Normal Negative [facility] Comment on above: Performed By: #### U TOX2, UAWMIC #### [place] [phone] Leukest Negative Normal Negative [facility] Comment on above: Performed By: #### U TOX2, UAWMIC #### [place] [phone] Nitrite Ql (U) Negative Normal Negative [facility] Comment on above: Performed By: #### U TOX2, UAWMIC #### [place] [phone] pH (U) 7.0 [pH] Normal 5.0-8.0 [facility] Comment on above: Performed By: #### U TOX2, UAWMIC #### [place] [phone] Protein, Urine Negative Normal Negative [facility] Comment on above: Performed By: #### U TOX2, UAWMIC #### [phone] RBC Rare Critically abnormal Negative [facility] Comment on above: Performed By: #### U TOX2, UAWMIC #### [phone] Specific [place], Ur 1.007 Normal 1.005-1.030 [facility] Comment on above: Performed By: #### U TOX2, UAWMIC #### [place] [phone] Urobilinogen (U) [Mass/Vol] Negative Normal Negative [facility] Comment on above: Performed By: #### U TOX2, UAWMIC #### [place] [phone] WBC Rare Critically abnormal Negative [facility] Comment on above: Performed By: #### U TOX2, UAWMIC #### [place] [phone] Vital Signs Date Time Vital Sign Value Performing Clinician Facility 10-18-2024 13:37-0400 Body height 165.1 cm MarioPoikos DO Work Phone: [facility] 10-18-2024 13:37-0400 Body mass index (BMI) [Ratio] 38.9 kg/m2 MarioPoikos DO Work Phone: [facility] 10-18-2024 13:37-0400 Body temperature 98.4 [degF] Mario Pee DO Work Phone: [facility] 10-18-2024 13:37-0400 Body weight 106.14 kg Mario Pee DO Work Phone: [facility] 10-18-2024 13:37-0400 Diastolic blood pressure 86 mm[Hg] Mario Pee DO Work Phone: [facility] 10-18-2024 13:37-0400 Heart rate 77 /min Mario Pee DO Work Phone: [facility] 10-18-2024 13:37-0400 Respiratory rate 18 /min Mario Pee DO Work Phone: [facility] 10-18-2024 13:37-0400 SaO2% (BldA) [Mass fraction] 98 % Mario Pee DO Work Phone: [facility] 10-18-2024 13:37-0400 Systolic blood pressure 120 mm[Hg] Mario Pee DO Work Phone: [facility] 09-08-2024 13:53-0400 Body height 165.1 cm Jenifer FINNEGAN Work Phone: [facility] 09-08-2024 13:53-0400 Body mass index (BMI) [Ratio] 37.77 kg/m2 Jenifer FINNEGAN Work Phone: [facility] 09-08-2024 13:53-0400 Body weight 102.97 kg Jenifer FINNEGAN Work Phone: [facility] 08-27-2024 09:36-0400 Body height 165.1 cm Mario Pee DO Work Phone: [facility] 08-27-2024 09:36-0400 Body mass index (BMI) [Ratio] 38.9 kg/m2 Mario Pee DO Work Phone: [facility] 08-27-2024 09:36-0400 Body temperature 97.4 [degF] Mario Pee DO Work Phone: [facility] 08-27-2024 09:36-0400 Body weight 106.14 kg Mario Pee DO Work Phone: [facility] 08-27-2024 09:36-0400 Diastolic blood pressure 78 mm[Hg] Mario Pee DO Work Phone: [facility] 08-27-2024 09:36-0400 Heart rate 100 /min Mario Pee DO Work Phone: [facility] 08-27-2024 09:36-0400 Respiratory rate 18 /min Mario Pee DO Work Phone: [facility] 08-27-2024 09:36-0400 SaO2% (BldA) [Mass fraction] 97 % Mario Pee DO Work Phone: [facility] 08-27-2024 09:36-0400 Systolic blood pressure 136 mm[Hg] Mario Pee DO Work Phone: [facility] 07-26-2024 15:01-0400 Body height 165.[address] [facility] 07-26-2024 15:01-0400 Body mass index (BMI) [Ratio] 39.4 kg/m2 [facility] 07-26-2024 15:01-0400 Body temperature 97.5 [degF] [facility] 07-26-2024 15:01-0400 Body weight 107.[address] [facility] 07-26-2024 15:01-0400 Diastolic blood pressure 82 mm[Hg] [facility] 07-26-2024 15:01-0400 Heart rate 85 /min [facility] 07-26-2024 15:01-0400 Respiratory rate 18 /min [facility] 07-26-2024 15:01-0400 SaO2% (BldA) [Mass fraction] 97 % [facility] 07-26-2024 15:01-0400 Systolic blood pressure 120 mm[Hg] [facility] 06-25-2024 11:29-0500 Body mass index (BMI) [Ratio] 38.92 kg/m2 Prince Mon PA-C Work Phone: [facility] 06-25-2024 11:29-0500 Body temperature 97.81 [degF] Prince Mon PA-C Work Phone: [facility] 06-25-2024 11:29-0500 Body weight 106.1 kg Prince Mon PA-C Work Phone: [facility] 06-25-2024 11:29-0500 Diastolic blood pressure 87 mm[Hg] Prince Mon PA-C Work Phone: [facility] 06-25-2024 11:29-0500 Heart rate 69 /min Prince Mon PA-C Work Phone: [facility] 06-25-2024 11:29-0500 Respiratory rate 18 /min Prince Rodberg PA-C Work Phone: [facility] 06-25-2024 11:29-0500 SaO2% (BldA) [Mass fraction] 98 % Prince Mon PA-C Work Phone: [facility] 06-25-2024 11:29-0500 Systolic blood pressure 128 mm[Hg] Prince Mon PA-C Work Phone: [facility] 06-02-2024 08:06-0500 Body mass index (BMI) [Ratio] 38.27 kg/m2 Jen Garcia DO Work Phone: [facility] 06-02-2024 08:06-0500 Body weight 104.33 kg Jen Garcia DO Work Phone: [facility] 06-02-2024 08:06-0500 Diastolic blood pressure 80 mm[Hg] Jen Garcia DO Work Phone: [facility] 06-02-2024 08:06-0500 Systolic blood pressure 122 mm[Hg] Jen Garcia DO Work Phone: [facility] 05-27-2024 14:52-0500 Body height 165.1 cm Lucero Itzkoisaac DO Work Phone: [facility] 05-27-2024 14:52-0500 Body mass index (BMI) [Ratio] 38.27 kg/m2 Lucero Itzkowitz DO Work Phone: [facility] 05-27-2024 14:52-0500 Body weight 104.33 kg Lucero ItjasonYourMechanicisaac DO Work Phone: [facility] 05-18-2024 13:41-0500 Diastolic blood pressure 72 mm[Hg] [facility] [employer] 05-18-2024 13:41-0500 Heart rate 71 /min [facility] [employer] 05-18-2024 13:41-0500 Respiratory rate 16 /min Brandon [facility] [employer] 05-18-2024 13:41-0500 SaO2% (BldA) [Mass fraction] 100 % Brandon [facility] [employer] 05-18-2024 13:41-0500 Systolic blood pressure 114 mm[Hg] Brandon Alan MD Work Phone: [employer] [facility] 05-18-2024 11:10-0500 Body height 165.1 cm Brandon [facility] [employer] 05-18-2024 11:10-0500 Body mass index (BMI) [Ratio] 38.27 kg/m2 Brandon Alan MD Work Phone: [employer] [facility] 05-18-2024 11:10-0500 Body temperature 99 [degF] Brandon Alan MD Work Phone: [facility] 05-18-2024 11:10-0500 Body weight 104.33 kg Brandon Alan MD Work Phone: [facility] 05-11-2024 13:10-0500 Body height 165.1 cm Richelle Morataya MD Work Phone: [facility] 05-11-2024 13:10-0500 Body mass index (BMI) [Ratio] 39.11 kg/m2 Richelle Morataya MD Work Phone: [facility] 05-11-2024 13:10-0500 Body weight 106.59 kg Richelle Morataya MD Work Phone: [facility] 05-11-2024 13:10-0500 Diastolic blood pressure 88 mm[Hg] Richelle Morataya MD Work Phone: [facility] 05-11-2024 13:10-0500 Systolic blood pressure 128 mm[Hg] Richelle Morataya MD Work Phone: [facility] 05-07-2024 08:53-0500 Body height 165.[address] [facility] 05-07-2024 08:53-0500 Body mass index (BMI) [Ratio] 39.1 kg/m2 [facility] 05-07-2024 08:53-0500 Body temperature 97.8 [degF] [facility] 05-07-2024 08:53-0500 Body weight 106.[address] [facility] 05-07-2024 08:53-0500 Diastolic blood pressure 74 mm[Hg] [facility] 05-07-2024 08:53-0500 Heart rate 94 /min [facility] 05-07-2024 08:53-0500 Respiratory rate 18 /min [facility] 05-07-2024 08:53-0500 SaO2% (BldA) [Mass fraction] 97 % [facility] 05-07-2024 08:53-0500 Systolic blood pressure 116 mm[Hg] [facility] 04-26-2024 14:29-0500 Body height 165.[address] [facility] 04-26-2024 14:29-0500 Body mass index (BMI) [Ratio] 38.2 kg/m2 [facility] 04-26-2024 14:29-0500 Body temperature 97.3 [degF] [facility] 04-26-2024 14:29-0500 Body weight 104.[address] [facility] 04-26-2024 14:29-0500 Diastolic blood pressure 102 mm[Hg] [facility] 04-26-2024 14:29-0500 Heart rate 78 /min [facility] 04-26-2024 14:29-0500 Respiratory rate 18 /min [facility] 04-26-2024 14:29-0500 SaO2% (BldA) [Mass fraction] 99 % [facility] 04-26-2024 14:29-0500 Systolic blood pressure 140 mm[Hg] [facility] 03-12-2024 09:52-0500 Body height 165.1 cm Prince Mon PA-C Work Phone: [facility] 03-12-2024 09:52-0500 Body mass index (BMI) [Ratio] 38.77 kg/m2 Prince Mon PA-C Work Phone: [facility] 03-12-2024 09:52-0500 Body weight 105.69 kg Prince Mon PA-C Work Phone: [facility] 02-23-2024 14:38-0500 Body height 165.1 cm DO Mario Pee Work Phone: [facility] 02-23-2024 14:38-0500 Body mass index (BMI) [Ratio] 38.2 kg/m2 DO Mario Pee Work Phone: [facility] 02-23-2024 14:38-0500 Body temperature 96.8 [degF] DO Mario Pee Work Phone: [facility] 02-23-2024 14:38-0500 Body weight 104.32 kg DO Mario Pee Work Phone: [facility] 02-23-2024 14:38-0500 Diastolic blood pressure 72 mm[Hg] DO Mario Pee Work Phone: [facility] 02-23-2024 14:38-0500 Heart rate 84 /min DO Mario Pee Work Phone: [facility] 02-23-2024 14:38-0500 Respiratory rate 16 /min DO Mario Pee Work Phone: [facility] 02-23-2024 14:38-0500 SaO2% (BldA) [Mass fraction] 98 % DO Mario Pee Work Phone: [facility] 02-23-2024 14:38-0500 Systolic blood pressure 120 mm[Hg] DO Mario Pee Work Phone: [facility] 02-17-2024 12:59-0400 Body height 165.1 cm Leobardo Anderson MD Work Phone: [facility] 02-17-2024 12:59-0400 Body mass index (BMI) [Ratio] 38.78 kg/m2 Leobardo Anderson MD Work Phone: [facility] 02-17-2024 12:59-0400 Body weight 105.7 kg Leobarod Anderson MD Work Phone: [facility] 02-17-2024 12:59-0400 Diastolic blood pressure 81 mm[Hg] Leobardo Anderson MD Work Phone: [facility] 02-17-2024 12:59-0400 Heart rate 83 /min Leobardo Anderson MD Work Phone: [facility] 02-17-2024 12:59-0400 SaO2% (BldA) [Mass fraction] 100 % Leobardo Anderson MD Work Phone: [facility] 02-17-2024 12:59-0400 Systolic blood pressure 124 mm[Hg] Leobardo Anderson MD Work Phone: [facility] 01-30-2024 09:33-0400 Body height 165.1 cm Prince Mon PA-C Work Phone: [facility] 01-30-2024 09:33-0400 Body mass index (BMI) [Ratio] 38.11 kg/m2 Prince Mon PA-C Work Phone: [facility] 01-30-2024 09:33-0400 Body weight 103.87 kg Prince Mon PA-C Work Phone: [facility] 01-19-2024 14:27-0400 Body height 165.1 cm Prince Mon PA-C Work Phone: [facility] 01-19-2024 14:27-0400 Body mass index (BMI) [Ratio] 38.11 kg/m2 Prince Mon PA-C Work Phone: [facility] 01-19-2024 14:27-0400 Body weight 103.87 kg Prince Mon PA-C Work Phone: [facility] 01-06-2024 13:45-0400 Body height 165.1 cm [facility] Comment on above: pt reported 01-06-2024 13:45-0400 Body mass index (BMI) [Ratio] 38.11 kg/m2 [facility] 01-06-2024 13:45-0400 Body weight 103.87 kg [facility] Comment on above: pt reported 01-06-2024 13:45-0400 Heart rate 96 /min [facility] Comment on above: per pt counting method 12-26-2023 13:32-0400 Body height 165.1 cm Jackie Sutton MD Work Phone: [facility] 12-26-2023 13:32-0400 Body mass index (BMI) [Ratio] 38.61 kg/m2 Jackie Sutton MD Work Phone: [facility] 12-26-2023 13:32-0400 Body weight 105.23 kg Jackie Sutton MD Work Phone: [facility] 12-26-2023 10:24-0400 Body height 165.[address] [facility] 12-26-2023 10:24-0400 Body mass index (BMI) [Ratio] 38.2 kg/m2 [facility] 12-26-2023 10:24-0400 Body temperature 97.3 [degF] [facility] 12-26-2023 10:24-0400 Body weight 104.[address] [facility] 12-26-2023 10:24-0400 Diastolic blood pressure 88 mm[Hg] [facility] 12-26-2023 10:24-0400 Heart rate 102 /min [facility] 12-26-2023 10:24-0400 SaO2% (BldA) [Mass fraction] 98 % [facility] 12-26-2023 10:24-0400 Systolic blood pressure 122 mm[Hg] [facility] 11-12-2023 14:42-0400 Body height 165.[address] [facility] 11-12-2023 14:42-0400 Body mass index (BMI) [Ratio] 38.7 kg/m2 [facility] 11-12-2023 14:42-0400 Body temperature 98.4 [degF] [facility] 11-12-2023 14:42-0400 Body weight 105.[address] [facility] 11-12-2023 14:42-0400 Diastolic blood pressure 90 mm[Hg] [facility] 11-12-2023 14:42-0400 Heart rate 101 /min [facility] 11-12-2023 14:42-0400 Respiratory rate 18 /min [facility] 11-12-2023 14:42-0400 SaO2% (BldA) [Mass fraction] 98 % [facility] 11-12-2023 14:42-0400 Systolic blood pressure 120 mm[Hg] [facility] 10-08-2023 16:13-0400 Body height 165.[address] [facility] 10-08-2023 16:13-0400 Body mass index (BMI) [Ratio] 39.7 kg/m2 [facility] 10-08-2023 16:13-0400 Body temperature 96.9 [degF] [facility] 10-08-2023 16:13-0400 Body weight 108.[address] [facility] 10-08-2023 16:13-0400 Diastolic blood pressure 82 mm[Hg] [facility] 10-08-2023 16:13-0400 Heart rate 99 /min [facility] 10-08-2023 16:13-0400 Respiratory rate 16 /min [facility] 10-08-2023 16:13-0400 SaO2% (BldA) [Mass fraction] 97 % [facility] 10-08-2023 16:13-0400 Systolic blood pressure 132 mm[Hg] [facility] 08-27-2023 16:34-0400 Body height 165.1 cm DO Mario Pee Work Phone: [facility] 08-27-2023 16:34-0400 Body mass index (BMI) [Ratio] 39.7 kg/m2 DO Mario Pee Work Phone: [facility] 08-27-2023 16:34-0400 Body temperature 97.9 [degF] DO Mario Pee Work Phone: [facility] 08-27-2023 16:34-0400 Body weight 108.4 kg DO Mario Pee Work Phone: [facility] 08-27-2023 16:34-0400 Diastolic blood pressure 80 mm[Hg] DO Mario Pee Work Phone: [facility] 08-27-2023 16:34-0400 Heart rate 70 /min DO Mario Pee Work Phone: [facility] 08-27-2023 16:34-0400 Respiratory rate 18 /min DO Mario Pee Work Phone: [facility] 08-27-2023 16:34-0400 SaO2% (BldA) [Mass fraction] 98 % DO Mario Pee Work Phone: [facility] 08-27-2023 16:34-0400 Systolic blood pressure 130 mm[Hg] DO Mario Pee Work Phone: [facility] 08-07-2023 10:53-0400 Body height 165.1 cm [employer] Work Phone: [facility] 08-07-2023 10:53-0400 Body weight 105.23 kg [employer] Work Phone: [facility] 07-07-2023 10:40-0400 Body temperature 98.2 [degF] DO Mario Pee Work Phone: [facility] 07-07-2023 10:40-0400 Diastolic blood pressure 74 mm[Hg] DO Mario Pee Work Phone: [facility] 07-07-2023 10:40-0400 Heart rate 70 /min DO Mario Pee Work Phone: [facility] 07-07-2023 10:40-0400 Respiratory rate 18 /min DO Mario Pee Work Phone: [facility] 07-07-2023 10:40-0400 SaO2% (BldA) [Mass fraction] 98 % DO Mario Pee Work Phone: [facility] 07-07-2023 10:40-0400 Systolic blood pressure 135 mm[Hg] DO Mario Pee Work Phone: [facility] 06-03-2023 18:00-0500 Diastolic blood pressure 75 mm[Hg] DO Amrio Pee Work Phone: [facility] [facility] 06[facility]23 18:00-0500 Heart rate 72 /min DO Mario Pee Work Phone: [facility] 06-03-2023 18:00-0500 Respiratory rate 16 /min DO Mario Pee Work Phone: [facility] 06-03-2023 18:00-0500 SaO2% (BldA) [Mass fraction] 98 % DO Mario Pee Work Phone: [facility] 06-03-2023 18:00-0500 Systolic blood pressure 116 mm[Hg] DO Mario Pee Work Phone: [facility] 06-03-2023 13:34-0500 Body height 165.1 cm DO Mario Pee Work Phone: [facility] 06-03-2023 13:34-0500 Body temperature 98.2 [degF] DO Mario Pee Work Phone: [facility] 06-03-2023 13:34-0500 Body weight 103.87 kg DO Mario Pee Work Phone: [facility] 04-01-2023 14:00-0500 Body height 165.1 cm DO Mario Pee Work Phone: [facility] 04-01-2023 14:00-0500 Body weight 103.87 kg DO Mario Pee Work Phone: [facility] 04-01-2023 14:00-0500 Diastolic blood pressure 78 mm[Hg] DO Mario Pee Work Phone: [facility] 04-01-2023 14:00-0500 Systolic blood pressure 118 mm[Hg] DO Mario Pee Work Phone: [facility] 01-29-2023 10:15-0400 Body height 165.1 cm Mario Pee Other [employer] Other 01-29-2023 10:15-0400 Body mass index (BMI) [Ratio] 37.27 kg/m2 Mario Pee Other [employer] Other 01-29-2023 10:15-0400 Body temperature 96.9 [degF] Mario Pee Other [employer] Other 01-29-2023 10:15-0400 Body weight 101.61 kg Mario Pee Other [employer] Other 01-29-2023 10:15-0400 Diastolic blood pressure 70 mm[Hg] Mario Pee Other [employer] Other 01-29-2023 10:15-0400 Respiratory rate 20 /min Mario Pee Other [employer] Other 01-29-2023 10:15-0400 SaO2% (BldA) [Mass fraction] 99 % Mario Pee Other [employer] Other 01-29-2023 10:15-0400 Systolic blood pressure 110 mm[Hg] Mario Pee Other [employer] Other 12-12-2022 15:15-0400 Body height 165.1 cm Mario Pee Other [employer] Other 12-12-2022 15:15-0400 Body mass index (BMI) [Ratio] 37.77 kg/m2 Mario Pee Other [employer] Other 12-12-2022 15:15-0400 Body weight 102.97 kg Mario Pee Other [employer] Other 12-12-2022 15:15-0400 Diastolic blood pressure 60 mm[Hg] Mario Pee Other [employer] Other 12-12-2022 15:15-0400 Respiratory rate 20 /min Mario Pee Other [employer] Other 12-12-2022 15:15-0400 Systolic blood pressure 102 mm[Hg] Mario Pee Other [employer] Other 11-23-2022 01:18-0400 Diastolic blood pressure 83 mm[Hg] Kaylinn Dokken [facility] 11-23-2022 01:18-0400 Heart rate 64 /min Kaylinn Dokken [facility] 11-23-2022 01:18-0400 Mean blood pressure 94 mm[Hg] Kaylinn Dokken [facility] 11-23-2022 01:18-0400 Respiratory rate 19 /min Kaylinn Dokken [facility] 11-23-2022 01:18-0400 SaO2% (BldA) [Mass fraction] 97 % Kaylinn Dokken [facility] 11-23-2022 01:18-0400 Systolic blood pressure 117 mm[Hg] Kaylinn Dokken [facility] 11-23-2022 01:14-0400 Diastolic blood pressure 85 mm[Hg] Kaylinn Dokken [facility] 11-23-2022 01:14-0400 Heart rate 65 /min Kaylinn Dokken [facility] 11-23-2022 01:14-0400 Mean blood pressure 98 mm[Hg] Kaylinn Dokken [facility] 11-23-2022 01:14-0400 Respiratory rate 18 /min Kaylinn Dokken [facility] 11-23-2022 01:14-0400 SaO2% (BldA) [Mass fraction] 98 % Kaylinn Dokken [facility] 11-23-2022 01:14-0400 Systolic blood pressure 124 mm[Hg] Kaylinn Dokken [facility] 11-23-2022 00:00-0400 Body temperature 98.24 [degF] Kaylinn Dokken [facility] 11-23-2022 00:00-0400 Diastolic blood pressure 63 mm[Hg] Kaylinn Dokken [facility] 11-23-2022 00:00-0400 Mean blood pressure 77 mm[Hg] Kaylinn Dokken [facility] 11-23-2022 00:00-0400 SaO2% (BldA) [Mass fraction] 99 % Kaylinn Dokken [facility] 11-23-2022 00:00-0400 Systolic blood pressure 105 mm[Hg] Kaylinn Dokken [facility] 11-22-2022 22:00-0400 Heart rate 63 /min Kaylinn Dokken [facility] 11-22-2022 20:59-0400 Body temperature 98.06 [degF] Sonam Montoya [facility] 11-22-2022 20:59-0400 Respiratory rate 19 /min [facility] 11-14-2022 13:15-0400 Body height 165.1 cm Mario Pee Other [employer] Other 11-14-2022 13:15-0400 Body mass index (BMI) [Ratio] 37.77 kg/m2 Mario Pee Other [employer] Other 11-14-2022 13:15-0400 Body temperature 97.8 [degF] Mario Pee Other [employer] Other 11-14-2022 13:15-0400 Body weight 102.97 kg Mario Pee Other [employer] Other 11-14-2022 13:15-0400 Diastolic blood pressure 76 mm[Hg] Mario Pee Other [employer] Other 11-14-2022 13:15-0400 Respiratory rate 20 /min Mario Pee Other [employer] Other 11-14-2022 13:15-0400 SaO2% (BldA) [Mass fraction] 97 % Mario Pee Other [employer] Other 11-14-2022 13:15-0400 Systolic blood pressure 100 mm[Hg] Mario Pee Other [employer] Other 10-15-2022 14:45-0400 Body height 165.1 cm Mario Pee Other [employer] Other 10-15-2022 14:45-0400 Body mass index (BMI) [Ratio] 38.44 kg/m2 Mario Pee Other [employer] Other 10-15-2022 14:45-0400 Body temperature 96 [degF] Mario Pee Other [employer] Other 10-15-2022 14:45-0400 Body weight 104.78 kg Mario Pee Other [employer] Other 10-15-2022 14:45-0400 Diastolic blood pressure 78 mm[Hg] Mario Pee Other [employer] Other 10-15-2022 14:45-0400 Respiratory rate 20 /min Mario Pee Other [employer] Other 10-15-2022 14:45-0400 SaO2% (BldA) [Mass fraction] 97 % Mario Pee Other [employer] Other 10-15-2022 14:45-0400 Systolic blood pressure 122 mm[Hg] Mario Pee Other [employer] Other 09-17-2022 13:00-0400 Body height 165.1 cm Mario Pee Other [employer] Other 09-17-2022 13:00-0400 Body mass index (BMI) [Ratio] 39.27 kg/m2 Mario Pee Other [employer] Other 09-17-2022 13:00-0400 Body temperature 96.9 [degF] Mario Pee Other [employer] Other 09-17-2022 13:00-0400 Body weight 107.05 kg Mario Pee Other [employer] Other 09-17-2022 13:00-0400 Diastolic blood pressure 78 mm[Hg] Mario Pee Other [employer] Other 09-17-2022 13:00-0400 Respiratory rate 20 /min Mario Pee Other [employer] Other 09-17-2022 13:00-0400 SaO2% (BldA) [Mass fraction] 96 % Mario Pee Other [employer] Other 09-17-2022 13:00-0400 Systolic blood pressure 124 mm[Hg] Mario Pee Other [employer] Other 05-02-2022 20:23-0500 Body temperature 98 [degF] DO Mario Pee Work Phone: [facility] 05-02-2022 20:23-0500 Diastolic blood pressure 78 mm[Hg] DO Mario Pee Work Phone: [facility] 05-02-2022 20:23-0500 Heart rate 104 /min DO Mario Pee Work Phone: [facility] 05-02-2022 20:23-0500 Respiratory rate 18 /min DO Mario Pee Work Phone: [facility] 05-02-2022 20:23-0500 SaO2% (BldA) [Mass fraction] 96 % DO Mario Pee Work Phone: [facility] 05-02-2022 20:23-0500 Systolic blood pressure 125 mm[Hg] DO Mario Pee Work Phone: [facility] 05-02-2022 16:20-0500 Inhaled oxygen flow rate 3 L/min DO Mario Pee Work Phone: [facility] 05-02-2022 06:52-0500 Body height 165.1 cm DO Mario Pee Work Phone: [facility] 05-02-2022 06:52-0500 Body mass index (BMI) [Ratio] 37.9 kg/m2 DO Mario Pee Work Phone: [facility] 05-02-2022 06:52-0500 Body weight 103.4 kg DO Mario Pee Work Phone: [facility] 04-24-2022 18:09-0500 Body height 165.1 cm DO Mario Pee Work Phone: [facility] 04-24-2022 18:09-0500 Body temperature 99.1 [degF] DO Mario Pee Work Phone: [facility] 04-24-2022 18:09-0500 Body weight 104.2 kg DO Mario Pee Work Phone: [facility] 04-24-2022 18:09-0500 Diastolic blood pressure 88 mm[Hg] DO Mario Pee Work Phone: [facility] 04-24-2022 18:09-0500 Heart rate 99 /min DO Mario Pee Work Phone: [facility] 04-24-2022 18:09-0500 Respiratory rate 19 /min DO Mario Pee Work Phone: [facility] 04-24-2022 18:09-0500 SaO2% (BldA) [Mass fraction] 96 % DO Mario Pee Work Phone: [facility] 04-24-2022 18:09-0500 Systolic blood pressure 124 mm[Hg] DO Mario Pee Work Phone: [facility] 04-17-2022 15:00-0500 Body height 165.1 cm Mario Pee Other [employer] Other 04-17-2022 15:00-0500 Body mass index (BMI) [Ratio] 38.77 kg/m2 Mario Pee Other [employer] Other 04-17-2022 15:00-0500 Body temperature 97.2 [degF] Mario Pee Other [employer] Other 04-17-2022 15:00-0500 Body weight 105.69 kg Mario Pee Other [employer] Other 04-17-2022 15:00-0500 Diastolic blood pressure 82 mm[Hg] Mario Pee Other [employer] Other 04-17-2022 15:00-0500 Respiratory rate 20 /min Mario Pee Other [employer] Other 04-17-2022 15:00-0500 SaO2% (BldA) [Mass fraction] 98 % Mario Pee Other [employer] Other 04-17-2022 15:00-0500 Systolic blood pressure 124 mm[Hg] Mario Pee Other [employer] Other 04-10-2022 08:44-0500 Body height 165.1 cm DO Mario Pee Work Phone: [facility] 04-10-2022 08:44-0500 Body temperature 98.3 [degF] DO Mario Pee Work Phone: [facility] 04-10-2022 08:44-0500 Body weight 105 kg DO Mario Pee Work Phone: [facility] 04-10-2022 08:44-0500 Diastolic blood pressure 82 mm[Hg] DO Mario Pee Work Phone: [facility] 04-10-2022 08:44-0500 Heart rate 80 /min DO Mario Pee Work Phone: [facility] 04-10-2022 08:44-0500 Respiratory rate 16 /min DO Mario Pee Work Phone: [facility] 04-10-2022 08:44-0500 SaO2% (BldA) [Mass fraction] 98 % DO Mario Pee Work Phone: [facility] 04-10-2022 08:44-0500 Systolic blood pressure 125 mm[Hg] DO Mario Pee Work Phone: [facility] 12-12-2021 14:45-0400 Body height 165.1 cm Mario Pee Other [employer] Other 12-12-2021 14:45-0400 Body mass index (BMI) [Ratio] 37.27 kg/m2 Mario Pee Other [employer] Other 12-12-2021 14:45-0400 Body temperature 96.9 [degF] Mario Pee Other [employer] Other 12-12-2021 14:45-0400 Body weight 101.61 kg Mario Pee Other [employer] Other 12-12-2021 14:45-0400 Diastolic blood pressure 80 mm[Hg] Mario Pee Other [employer] Other 12-12-2021 14:45-0400 Respiratory rate 20 /min Mario Pee Other [employer] Other 12-12-2021 14:45-0400 SaO2% (BldA) [Mass fraction] 98 % Mario Pee Other [employer] Other 12-12-2021 14:45-0400 Systolic blood pressure 124 mm[Hg] Mario Pee Other [employer] Other 10-12-2021 09:30-0400 Body height 165.1 cm Mario Pee Other [employer] Other 10-12-2021 09:30-0400 Body mass index (BMI) [Ratio] 37.27 kg/m2 Mario Pee Other [employer] Other 10-12-2021 09:30-0400 Body temperature 98.3 [degF] Mario Pee Other [employer] Other 10-12-2021 09:30-0400 Body weight 101.61 kg Mario Pee Other [employer] Other 10-12-2021 09:30-0400 Diastolic blood pressure 80 mm[Hg] Mario Pee Other [employer] Other 10-12-2021 09:30-0400 Respiratory rate 18 /min Mario Pee Other [employer] Other 10-12-2021 09:30-0400 Systolic blood pressure 110 mm[Hg] Mario Pee Other [employer] Other 09-27-2021 17:00-0400 Body height 165.1 cm Mario Pee Other [employer] Other 09-27-2021 17:00-0400 Body mass index (BMI) [Ratio] 38.1 kg/m2 Mario Pee Other [employer] Other 09-27-2021 17:00-0400 Body temperature 97.6 [degF] Mario Pee Other [employer] Other 09-27-2021 17:00-0400 Body weight 103.87 kg Mario Pee Other [employer] Other 09-27-2021 17:00-0400 Diastolic blood pressure 62 mm[Hg] Mario Pee Other [employer] Other 09-27-2021 17:00-0400 Respiratory rate 20 /min Mario Pee Other [employer] Other 09-27-2021 17:00-0400 SaO2% (BldA) [Mass fraction] 97 % Mario Pee Other [employer] Other 09-27-2021 17:00-0400 Systolic blood pressure 122 mm[Hg] Mario Pee Other [employer] Other 05-30-2021 18:15-0500 Body height 165.1 cm Mario Pee Other [employer] Other 05-30-2021 18:15-0500 Body mass index (BMI) [Ratio] 37.6 kg/m2 Mario Pee Other [employer] Other 05-30-2021 18:15-0500 Body temperature 97.3 [degF] Mario Pee Other [employer] Other 05-30-2021 18:15-0500 Body weight 102.51 kg Mario Pee Other [employer] Other 05-30-2021 18:15-0500 Diastolic blood pressure 82 mm[Hg] Mario Pee Other [employer] Other 05-30-2021 18:15-0500 Respiratory rate 20 /min Mario Pee Other [employer] Other 05-30-2021 18:15-0500 SaO2% (BldA) [Mass fraction] 97 % Mario Pee Other [employer] Other 05-30-2021 18:15-0500 Systolic blood pressure 122 mm[Hg] Mario Pee Other [employer] Other 05-02-2021 18:30-0500 Body height 165.1 cm Mario Pee Other [employer] Other 05-02-2021 18:30-0500 Body mass index (BMI) [Ratio] 36.77 kg/m2 Mario Pee Other [employer] Other 05-02-2021 18:30-0500 Body temperature 97.6 [degF] Mario Pee Other [employer] Other 05-02-2021 18:30-0500 Body weight 100.25 kg Mario Pee Other [employer] Other 05-02-2021 18:30-0500 Diastolic blood pressure 70 mm[Hg] Mario Pee Other [employer] Other 05-02-2021 18:30-0500 Respiratory rate 20 /min Mario Pee Other [employer] Other 05-02-2021 18:30-0500 SaO2% (BldA) [Mass fraction] 96 % Mario Pee Other [employer] Other 05-02-2021 18:30-0500 Systolic blood pressure 118 mm[Hg] Mario Pee Other [employer] Other Encounters Encounter Date Encounter Type Care Provider Facility Start: 01-03-2025 End: 01-03-2025 Telephone encounter Prince Mon PA-C Work Phone: [facility] Comment on above: Appointment Start: 10-18-2024 End: 10-18-2024 ambulatory Mario AlyseHernandez Dawnes DO Work Phone: [facility] Work Phone: Start: 10-18-2024 End: 10-18-2024 Patient encounter procedure Mario Pee M [facility] Work Phone: Start: 09-30-2024 End: 09-30-2024 Telephone encounter Jenifer FINNEGAN Work Phone: [facility] Comment on above: MRI Start: 09-24-2024 End: 09-24-2024 ambulatory JENIFER SHEPPARD Not Available Start: 09-08-2024 End: 09-08-2024 Bamboo flowsheet Jenifer Sheppard PA Work Phone: [facility] Start: 09-08-2024 End: 09-08-2024 Bamboo flowsheet Jenifer Sheppard PA Work Phone: [facility] Start: 09-08-2024 End: 09-08-2024 Office outpatient new 45 minutes Jenifer FINNEGAN Work Phone: [facility] Comment on above: Right hip impingemen t syndrome (Primary Dx); Right hip pain Start: 09-08-2024 End: 09-08-2024 ambulatory JENIFER SHEPPARD Not Available Start: 08-27-2024 End: 08-27-2024 Patient encounter procedure Mario Cullen [facility] Work Phone: Start: 08-05-2024 End: 08-05-2024 Bamboo flowsheet Vasu Hilton DPM Work Phone: [facility] Start: 08-05-2024 End: 08-05-2024 Bamboo flowsheet Vasu Hilton DPM Work Phone: [facility] Start: 08-05-2024 End: 08-05-2024 Office outpatient visit 15 minutes Vasu Hilton DPM Work Phone: [facility] Comment on above: Plantar fasciitis (P rimary Dx); Pain of left heel Start: 08-05-2024 End: 08-05-2024 ambulatory VASU HILTON Not Available Start: 07-26-2024 End: 07-26-2024 ambulatory [facility] Work Phone: Start: 07-26-2024 End: 07-26-2024 Patient encounter procedure [facility] [place] Work Phone: Start: 07-09-2024 End: 07-09-2024 Telephone encounter Lou Miller RN Work Phone: Mammography Comment on above: Results Start: 07-07-2024 ambulatory MARIO CAROLINE BRYANGLES Faci lity:[facility] Start: 07-07-2024 End: 07-07-2024 Subsequent hospital visit by physician Procedure [facility] Work Phone: Mammography Comment on above: Abnormal finding on breast imaging [R92.8] Start: 07-06-2024 End: 07-06-2024 Orders Only Lea Almanzar MD Work Phone: Mammography Comment on above: Abnormal finding on breast imaging (Primary Dx) Start: 06-28-2024 End: 06-28-2024 Telephone encounter Prince Mon PA-C Work Phone: [facility] Comment on above: Patient Question Start: 06-25-2024 End: 06-25-2024 ambulatory MARIO CAROLINE GLASGOW Facility:[facility] Start: 06-25-2024 End: 06-25-2024 Subsequent hospital visit by physician [facility] Comment on above: Mass of upper outer quadrant of left breast [N63.21] Start: 06-25-2024 End: 06-25-2024 ambulatory MARIO VELAZQUEZ PEE Facility:[facility] Start: 06-25-2024 End: 06-25-2024 Office outpatient visit 40 minutes Prince Mon PA-C Work Phone: [facility] Comment on above: Mass of upper outer quadrant of left breast (Primary Dx); Mass of right breast, unspecified quadrant; Fibrocystic breast changes of both breasts Start: 06-07-2024 End: 06-07-2024 Follow-up encounter Tegan Nichols MS Work Phone: [facility] Start: 06-02-2024 End: 06-02-2024 Office outpatient visit 15 minutes Jen Garcia DO Work Phone: [facility] Comment on above: Breast pain (Primary Dx); Mood changes; Hot flashes; Low libido Start: 06-02-2024 End: 06-02-2024 ambulatory JEN GARCIA Not Available Start: 05-31-2024 End: 05-31-2024 ambulatory MARIO CAROLINE DAWNES Facility:[facility] Start: 05-29-2024 End: 05-29-2024 ambulatory Tegan Nichols MS Work Phone: [facility] Comment on above: Family history of br east cancer Start: 05-29-2024 End: 05-29-2024 Telemedicine consultation with patient Tegan Nichols MS Work Phone: [employer] Start: 05-27-2024 End: 05-27-2024 Office outpatient visit 40 minutes Lucero Belle DO Work Phone: [facility] Comment on above: Bloody discharge fro m right nipple (Primary Dx) Start: 05-27-2024 End: 05-27-2024 ambulatory LUCERO BELLE Not Available Start: 05-21-2024 End: 05-23-2024 Telephone encounter Prince Mon PA-C Work Phone: [facility] Comment on above: Results Start: 05-20-2024 End: 05-20-2024 ambulatory PRINCE MON Facility:[facility] Start: 05-20-2024 End: 05-20-2024 Subsequent hospital visit by physician Mri [facility] (Lg Bore/1.5t) Radiology MRI Comment on above: Nipple discharge [N6 4.52] Start: 05-19-2024 Non-patient / Non-visit [facility] [place] Work Phone: Start: 05-18-2024 End: 05-18-2024 Emergency department patient visit [facility] Comment on above: Right arm pain (Prim carter Dx); Seizure-like activity (HCC) Start: 05-11-2024 End: 05-11-2024 Office outpatient visit 40 minutes Richelle Morataya MD Work Phone: [facility] Comment on above: Alteration of awaren ess; Psychogenic nonepileptic seizure (CMS/HCC); Paresthesia Start: 05-11-2024 End: 05-11-2024 ambulatory RICHELLE MORATAYA Not Available Start: 05-07-2024 End: 05-07-2024 ambulatory [facility] Work Phone: Start: 05-07-2024 End: 05-07-2024 Patient encounter procedure [facility] Work Phone: Start: 05-06-2024 End: 05-06-2024 E-mail encounter from caregiver Opal Llanos MS Work Phone: [facility] Start: 05-06-2024 End: 05-06-2024 Patient encounter procedure Opal Llanos MS Work Phone: [facility] Comment on above: Sooner genetic couns eling appointments available Start: 04-26-2024 End: 04-26-2024 ambulatory [facility] Work Phone: Start: 04-26-2024 End: 04-26-2024 Patient encounter procedure [facility] [employer] Work Phone: Start: 03-12-2024 End: 03-12-2024 Office [...] [N63.10] Start: 03-12-2024 End: 03-12-2024 ambulatory MARIO GLASGOW Facility:[facility] Start: 02-23-2024 End: 02-23-2024 ambulatory DO Mario Glasgow Work Phone: [facility] Work Phone: Start: 02-23-2024 End: 02-23-2024 Patient encounter procedure DO Mario Glasgow Work Phone: [facility] [place] Work Phone: Start: 02-17-2024 End: 02-17-2024 ambulatory MARIO GLASGOW Facility:[facility] Start: 02-17-2024 End: 02-17-2024 Office consultation new/estab patient 80 min Leobardo Anderson MD Work Phone: Endocrinology Comment on above: Discharge from right nipple (Primary Dx); Obesity, Class II, BMI 35-39.9 Start: 01-30-2024 End: 01-30-2024 Subsequent hospital visit by physician Clinic Imaging Mammo Main Mamm[facility] Comment on above: Mass of right breast , unspecified quadrant [N63.10] Start: 01-30-2024 End: 01-30-2024 ambulatory PRINCE MON Facility:[facility] Start: 01-30-2024 End: 01-30-2024 Patient encounter procedure Prince Mon PA-C Work Phone: [facility] Comment on above: Mass of right breast , unspecified quadrant (Primary Dx); Nipple discharge; Family history of breast cancer Start: 01-19-2024 End: 01-19-2024 Patient encounter procedure Prince Mon PA-C Work Phone: [facility] Comment on above: Breast fibroadenoma, right (Primary Dx); Fibrocystic breast changes of both breasts; Post-operative state Start: 01-19-2024 End: 01-19-2024 ambulatory PRINCE MON Facility:[facility] Start: 01-09-2024 End: 01-09-2024 ambulatory Jackie Sutton MD Work Phone: [facility] Comment on above: Pain medication Start: 01-09-2024 End: 01-09-2024 E-mail encounter from caregiver Jackie Sutton MD Work Phone: [facility] Start: 01-09-2024 End: 01-09-2024 Telephone encounter Jackie Sutton MD Work Phone: [facility] Comment on above: Breast Problem Start: 01-08-2024 End: 01-08-2024 ambulatory JACKIE SUTTON Facility:[facility] Start: 01-07-2024 Non-patient / Non-visit DO Tasha Glasgow Work Phone: [facility] Physician [facility] Work Phone: Start: 01-07-2024 Encounter for other preprocedural examination MARIO GLASGOW [facility] Start: 01-07-2024 End: 01-07-2024 ambulatory JACKIE SUTTON Facility:[facility] Start: 01-07-2024 End: 01-07-2024 Subsequent hospital visit by physician Procedure Mammo Main Mammography Start: 01-06-2024 End: 01-06-2024 Telephone encounter Camila Russo PA-C Work Phone: Pre Anesthesia Comment on above: Patient Update Start: 01-06-2024 End: 01-06-2024 [facility] Start: 01-06-2024 End: 01-06-2024 ambulatory MARIO GLASGOW Facility:[facility] Start: 01-06-2024 End: 01-06-[address] [facility] Pre Anesthesia Comment on above: Pre-op evaluation (P rimary Dx); Seizure (HCC); Difficult intravenous access; Obesity (BMI 30-39.9); POTS (postural orthostatic tachycardia syndrome); Rash Start: 01-06-2024 End: 01-06-2024 Preprocedural examination done [facility] Work Phone: Start: 01-02-2024 End: 01-02-2024 Telephone encounter Yessenia Thorpe PA-C Work Phone: Pre Anesthesia Comment on above: Appointment Start: 12-31-2023 End: 12-31-2023 Telephone encounter Candida Dumas [employer] Work Phone: Pre Anesthesia Comment on above: Missed Appointment Start: 12-26-2023 End: 12-26-2023 Patient encounter status Jackie Sutton MD Work Phone: [facility] Start: 12-26-2023 End: 12-29-2023 Telephone encounter Jackie Sutton MD Work Phone: Breast Center Comment on above: Breast Localization Request Start: 12-26-2023 End: 12-26-2023 Departed Referred DO Mario Glasgow Work Phone: [facility] [place] Work Phone: Start: 12-26-2023 End: 12-26-2023 ambulatory Jackie Sutton MD Work Phone: [facility] Work Phone: Comment on above: Breast fibroadenoma, right (Primary Dx); Preop testing Start: 12-26-2023 End: 12-26-2023 Patient encounter procedure [facility] Phys[facility] Work Phone: Comment on above: Breast fibroadenoma, right (Primary Dx) Start: 12-17-2023 Emergency department patient visit PRINCE HILTON [facility] Start: 12-17-2023 End: 12-17-2023 Emergency department patient visit MORIS GUERRERO [facility] Start: 12-17-2023 Non-patient / Non-visit [facility] Phys[facility] Work Phone: Start: 11-12-2023 End: 11-12-2023 ambulatory [facility] Work Phone: Start: 11-12-2023 End: 11-12-2023 Patient encounter procedure [facility] Physician [facility] [place] Work Phone: Start: 10-08-2023 End: 10-08-2023 ambulatory [facility] Work Phone: Start: 10-08-2023 End: 10-08-2023 Patient encounter procedure [facility] Physician [facility] Work Phone: Start: 10-08-2023 End: 10-08-2023 ambulatory VASU HILTON Not Available Start: 09-12-2023 Telephone encounter Franchesca lamas PA-C Work Phone: [facility] Start: 09-11-2023 Telephone encounter Lou Miller RN Work Phone: Mammography Comment on above: Results Start: 09-08-2023 End: 09-08-2023 Subsequent hospital visit by physician Procedure Mammo Main Mammography Comment on above: Fibrocystic breast c hanges of both breasts [N60.11, N60.12] Start: 09-02-2023 Non-patient / Non-visit [facility] Physician [facility] Work Phone: Start: 08-27-2023 End: 08-27-2023 ambulatory DO Mario M. Pee Work Phone: [facility] Work Phone: Start: 08-27-2023 End: 08-27-2023 Patient encounter procedure DO Mario Pee Work Phone: [facility] Work Phone: Start: 08-13-2023 Non-patient / Non-visit DO Set h Pee Work Phone: [facility] Work Phone: Start: 08-11-2023 Telephone encounter Franchesca lamas PA-C Work Phone: [facility] Start: 08-07-2023 End: 08-07-2023 Subsequent hospital visit by physician Clinic Imaging Mammo Main Mammography Comment on above: Fibrocystic breast c hanges of both breasts [N60.11, N60.12] Start: 08-07-2023 End: 08-07-2023 Patient encounter procedure Annlayo Arenas Donovan PA-C Work Phone: [facility] [place] Comment on above: Mastodynia (Primary Dx); Fibrocystic breast changes of both breasts; Family history of breast cancer; Dense breasts; Nipple discharge Start: 08-06-2023 Orders Only Annlayo Arenas Garett peterson PA-C Work Phone: [facility] [place] Comment on above: Disorder of breast ( Primary Dx) Start: 07-30-2023 Telephone encounter Franchesca lamas PA-C Work Phone: [facility] Start: 07-25-2023 Non-patient / Non-visit DO Set h Pee Work Phone: [facility] Physician [facility] Work Phone: Start: 07-25-2023 Telephone encounter Franchesca lamas PA-C Work Phone: [facility] Start: 07-07-2023 Non-patient / Non-visit DO Set h Pee Work Phone: [facility] Work Phone: Start: 07-07-2023 End: 07-07-2023 Admission to same day surgery center DO Mario Pee Work Phone: [facility]Ul[facility]ound Cntr for Breast Car Start: 07-07-2023 End: 07-07-2023 ambulatory DO Mario M. Pee Work Phone: [facility] Work Phone: Start: 07-01-2023 Non-patient / Non-visit DO Set h Pee Work Phone: [facility] Physician [facility] Work Phone: Start: 06-30-2023 Non-patient / Non-visit DO Set h Pee Work Phone: [facility] Physician [facility] Work Phone: Start: 06-06-2023 Non-patient / Non-visit DO Set h Pee Work Phone: [facility] Physician [facility] Work Phone: Start: 06-03-2023 End: 06-03-2023 Emergency department patient visit DO Mario Pee Work Phone: [facility]Emergency Room Work Phone: Start: 05-07-2023 End: 05-07-2023 ambulatory Mario Pee Other [employer] Other Start: 05-07-2023 Telephone encounter Mario Pee [facility] Start: 04-01-2023 End: 04-01-2023 Patient encounter procedure DO Mario Pee Work Phone: [facility] Physician [facility] Work Phone: Start: 03-21-2023 End: 03-21-2023 ambulatory Mario Pee Other [employer] Other Start: 03-21-2023 Telephone encounter Mario Pee [facility] Start: 02-13-2023 End: 02-13-2023 ambulatory Mario Pee Other [employer] Other Start: 02-13-2023 Telephone encounter Mario Pee [facility] Start: 01-29-2023 End: 01-29-2023 ambulatory Mario Pee Other [employer] Other Start: 01-29-2023 Office outpatient vi sit 15 minutes Mario Pee [facility] Start: 01-21-2023 End: 01-21-2023 ambulatory Mario Pee Other [employer] Other Start: 01-21-2023 Telephone encounter Mario Pee [facility] Start: 01-01-2023 End: 01-02-2023 ambulatory Erin Chavez Facility:[facility] Start: 01-01-2023 End: 01-01-2023 Patient encounter procedure Erin Chavez [facility] Start: 12-20-2022 End: 12-20-2022 ambulatory Mario Pee Other [employer] Other Start: 12-20-2022 Telephone encounter Mario Pee [facility] Start: 12-12-2022 End: 12-12-2022 ambulatory Mario Pee Other [employer] Other Start: 12-12-2022 Office outpatient vi sit 15 minutes Mario Pee [facility] Start: 11-22-2022 End: 11-23-2022 Emergency department patient visit DO Sonam Montoya [facility] Start: 11-22-2022 End: 11-23-2022 Emergency department patient visit Sonam Montoya [facility] Start: 11-20-2022 End: 11-20-2022 ambulatory Mario Pee Other [employer] Other Start: 11-20-2022 Telephone encounter Mraio Pee [facility] Start: 11-14-2022 End: 11-14-2022 ambulatory Mario Pee Other [employer] Other Start: 11-14-2022 Office outpatient vi sit 15 minutes Mario Pee [facility] Start: 10-15-2022 End: 10-15-2022 ambulatory Mario Pee Other [employer] Other Start: 10-15-2022 Office outpatient vi sit 25 minutes Mario Pee [facility] Start: 10-09-2022 End: 10-09-2022 ambulatory Mario Pee Other [employer] Other Start: 10-09-2022 Telephone encounter Mario Pee [facility] Start: 09-17-2022 End: 09-17-2022 ambulatory Mario Pee Other [employer] Other Start: 09-17-2022 Office outpatient vi sit 15 minutes Mario Pee [facility] Start: 09-17-2022 Telephone encounter Mario Pee [facility] Start: 08-13-2022 End: 08-14-[address] MARIO Cullen PEE Facility:[facility] Start: 08-12-2022 End: 08-13-[address] MARIO Cullen PEE Facility:[facility] Start: 08-09-2022 End: 08-09-2022 ambulatory Mario Pee Other [employer] Other Start: 08-09-2022 Telephone encounter Mario Pee [facility] Start: 07-08-2022 End: 07-08-2022 ambulatory Vi [place] Other [employer] Other Start: 07-08-2022 Telephone encounter Vi Easterwood [facility] Start: 06-17-2022 End: 06-17-2022 ambulatory Mario Pee Other [employer] Other Start: 06-17-2022 Telephone encounter Mario Pee [facility] Start: 06-14-2022 End: 06-14-2022 ambulatory DO Mario Cullen. Pee Work Phone: [facility] Work Phone: Start: 06-14-2022 End: 06-14-2022 Departed Referred DO Mario Pee Work Phone: [facility]Lab [facility] [place] Work Phone: Start: 06-07-2022 End: 06-07-2022 ambulatory Mario Pee Other [employer] Other Start: 06-07-2022 Telephone encounter Mario Pee [facility] Start: 05-09-2022 End: 05-09-2022 ambulatory Mario Pee Other [employer] Other Start: 05-09-2022 Telephone encounter Mario Pee [facility] Start: 05-06-2022 End: 05-06-2022 ambulatory Mario Pee Other [employer] Other Start: 05-06-2022 Telephone encounter Mario Pee [facility] Start: 05-02-2022 End: 05-02-2022 Admission to same day surgery center DO Mario Pee Work Phone: [facility]Surgery Center [facility] [place] Start: 05-02-2022 End: 05-02-2022 ambulatory DO Mario M. Pee Work Phone: [facility] Work Phone: Start: 04-25-2022 Telephone encounter Mario Pee [facility] Start: 04-25-2022 End: 04-25-2022 Departed Referred DO Mario Pee Work Phone: [facility]Surgery Center [facility] [place] Start: 04-25-2022 End: 04-25-2022 ambulatory DO Mario M. Pee Work Phone: [employer] Other Start: 04-24-2022 End: 04-24-2022 Emergency department patient visit DO Mario Pee Work Phone: [facility]Emergency [facility] Work Phone: Start: 04-23-2022 End: 04-23-2022 Patient encounter procedure DO Mario Pee Work Phone: [facility]-Pre-Surgical Testing Work Phone: Start: 04-17-2022 End: 04-17-2022 ambulatory Mario Pee Other [employer] Other Start: 04-17-2022 Office outpatient vi sit 15 minutes Mario Pee [facility] Start: 04-17-2022 Telephone encounter Mario Pee [facility] Start: 04-16-2022 End: 04-16-2022 ambulatory Mario Pee Other [employer] Other Start: 04-16-2022 Telephone encounter Mario Pee [facility] Start: 04-10-2022 End: 04-10-2022 ambulatory DO Mario M. Pee Work Phone: [facility] Work Phone: Start: 04-10-2022 End: 04-10-2022 Patient encounter procedure DO Mario Pee Work Phone: [facility]Pre-Surgical Testing Start: 04-09-2022 End: 04-09-2022 ambulatory Mario Pee Other [employer] Other Start: 04-09-2022 Telephone encounter Mario Pee [facility] Start: 04-08-2022 End: 04-08-2022 ambulatory Mario Pee Other [employer] Other Start: 04-08-2022 Telephone encounter Mario Pee [facility] Start: 03-28-2022 End: 03-30-[address] MARIO M PEE Facility:[facility] Start: 03-06-2022 End: 03-06-2022 ambulatory Mario Pee Other [employer] Other Start: 03-06-2022 Telephone encounter Mario Pee [facility] Start: 02-10-2022 End: 02-10-[address] MARTIN M PEE Facility:[facility] Start: 02-04-2022 End: 02-04-2022 ambulatory Mario Pee Other [employer] Other Start: 02-04-2022 Telephone encounter Mario Pee [facility] Start: 01-29-2022 End: 01-29-2022 ambulatory Mario Pee Other [employer] Other Start: 01-29-2022 Telephone encounter Mario Pee [facility] Start: 01-28-2022 End: 01-28-[address] MARIO M PEE Facility:[facility] Start: 12-25-2021 End: 12-25-2021 ambulatory Mario Pee Other [employer] Other Start: 12-25-2021 Telephone encounter Mario Pee [facility] Start: 12-12-2021 End: 12-12-2021 ambulatory Mario Pee Other [employer] Other Start: 12-12-2021 Office outpatient vi sit 15 minutes Mario Pee [facility] Start: 11-26-2021 End: 11-26-2021 ambulatory Mario Pee Other [employer] Other Start: 11-26-2021 Telephone encounter Mario Pee [facility] Start: 11-21-2021 End: 11-21-2021 ambulatory Mario Pee Other [employer] Other Start: 11-21-2021 Telephone encounter Mario Pee [facility] Start: 11-05-2021 End: 11-05-2021 ambulatory Mario Pee Other [employer] Other Start: 11-05-2021 Telephone encounter Mario Pee [facility] Start: 10-29-2021 End: 10-29-[address] MARIO M PEE Facility: Start: 10-23-2021 End: 10-23-2021 ambulatory Mario Pee Other [employer] Other Start: 10-23-2021 Telephone encounter Mario Pee [facility] Start: 10-19-2021 End: 10-19-2021 ambulatory Mario Pee Other [employer] Other Start: 10-19-2021 Telephone encounter Mario Pee [facility] Start: 10-12-2021 End: 10-12-2021 ambulatory Mario Pee Other [employer] Other Start: 10-12-2021 Office outpatient vi sit 15 minutes Mario Pee [facility] Start: 10-12-2021 Telephone encounter Mario Pee [facility] Start: 10-01-2021 End: 10-01-2021 ambulatory Mario Pee Other [employer] Other Start: 10-01-2021 Telephone encounter Mario Pee [facility] Start: 09-27-2021 End: 09-27-2021 ambulatory Mario Pee Other [employer] Other Start: 09-27-2021 Office outpatient vi sit 15 minutes Mario Pee [facility] Start: 09-18-2021 End: 09-18-2021 ambulatory Mario Pee Other [employer] Other Start: 09-18-2021 Telephone encounter Mario Pee [facility] Start: 09-10-2021 End: 09-10-2021 ambulatory Mario Pee Other [employer] Other Start: 09-10-2021 Telephone encounter Mario Pee [facility] Start: 09-05-2021 End: 09-05-2021 Patient encounter procedure Erin Chavez [facility] Start: 08-13-2021 End: 08-13-2021 ambulatory Mario Pee Other [employer] Other Start: 08-13-2021 Telephone encounter Mario Pee [facility] Start: 08-01-2021 End: 08-01-2021 ambulatory Mario Pee Other [employer] Other Start: 08-01-2021 Telephone encounter Mario Pee [facility] Start: 07-06-2021 End: 07-06-2021 ambulatory Vi [place] Other [employer] Other Start: 07-06-2021 Telephone encounter Vi [place] [facility] Start: 06-18-2021 End: 06-18-2021 ambulatory Mario Pee Other [employer] Other Start: 06-18-2021 Telephone encounter Mario Pee [facility] Start: 06-08-2021 End: 06-08-2021 ambulatory Mario Pee Other [employer] Other Start: 06-08-2021 Telephone encounter Mario Pee [facility] Start: 05-30-2021 End: 05-30-2021 ambulatory Mario Pee Other [employer] Other Start: 05-30-2021 Office outpatient vi sit 15 minutes Mario Pee [facility] Start: 05-21-2021 End: 05-21-2021 ambulatory Mario Pee Other [employer] Other Start: 05-21-2021 Telephone encounter Mario Pee [facility] Start: 05-09-2021 End: 05-09-2021 ambulatory Mario Pee Other [employer] Other Start: 05-09-2021 Telephone encounter Mario Pee [facility] Start: 05-08-2021 End: 05-08-2021 ambulatory Mario Pee Other [employer] Other Start: 05-08-2021 Telephone encounter Mario Pee [facility] Start: 05-02-2021 End: 05-02-2021 ambulatory Mario Pee Other [employer] Other Start: 05-02-2021 Office outpatient vi sit 15 minutes Mario Pee [facility] Procedures Date Procedure Procedure Detail Performing Clinician Start: 09-08-2024 Radex hip unilateral with pelvis 2-3 views Jenifer FINNEGAN Work Phone: Start: 07-07-2024 Digital breast tomos ynthesis unilateral Lea Almanzar MD Work Phone: Start: 07-07-2024 Bx breast w/device 1 st lesion ultrasound guid Lea Almanzar MD Work Phone: Start: 06-25-2024 End: 06-25-2024 Us breast uni real time with image limited Prince MONTEZC Work Phone: Start: 06-25-2024 Digital breast tomos ynthesis bilateral Prince MONTEZC Work Phone: Start: 05-18-2024 Radex shoulder compl ete minimum 2 views Sukumar Lomax PA-C Work Phone: Start: 05-18-2024 Ct head/brain w/o co ntrast material Sukumar Lomax PA-C Work Phone: Start: 05-18-2024 Drug tst prsmv instr mnt chem analyzers pr date Tegan Barragan DO Work Phone: Start: 05-18-2024 Comprehensive metabolic panel Tegan Barragan DO Work Phone: Start: 03-12-2024 Us breast uni real t [place] with image limited Prince MONTEZC Work Phone: Start: 03-12-2024 Digital breast tomos ynthesis unilateral Prince MONTEZC Work Phone: Start: 01-30-2024 Us breast uni real t [place] with image limited Prince FINNEGAN-C Work Phone: Start: 01-07-2024 Diagnostic mammograp hy computer-aided detcj uni Jackie Sutton MD Work Phone: Start: 01-07-2024 Perq breast loc kym ce placemt 1st lesio us imag Jackie Sutton MD Work Phone: Start: 12-26-2023 Bacteria identified in Urine by Culture DO Mario Pee Work Phone: Start: 12-26-2023 Urine culture DO Mario R uggles Work Phone: Start: 09-08-2023 Bx breast w/device 1 st lesion ultrasound guid Franchesca Arenas Donovan PA-C Work Phone: Start: 09-08-2023 Digital breast tomos ynthesis unilateral Annlayo Arenas [employer] PA-C Work Phone: Start: 09-02-2023 Cortisol total Comment on above: Please Note: The ref erence interval and flagging for this test is for an AM collection. If this is a PM collection please use: Cortisol PM: 2.3-11.9Performed at: [address] [id number] Director: Joby Hackett PhD, Phone: [phone] Start: 08-07-2023 Us breast uni real t [place] with image limited Franchesca Arenas [employer] PA-C Work Phone: Start: 07-07-2023 Mammography of [...] Treatment Date Care Activity Detail Author Start: 01-13-2025 End: 01-13-2025 Patient encounter procedure Mammography Comment on above: follow up/ new lump per my chart message Start: 12-29-2024 End: 12-29-2024 Patient encounter procedure 12/29/2024 11:15 AM EDT Office Visit [facility] [address] [place] [address] Tegan Nichols, [place] [address] [place] [address] Everything [facility] Comment on above: Everything Start: 12-20-2024 Influenza vaccination Influenza Vacc ine (#1) [facility] Start: 10-18-2024 Patient referral [facility] Work Phone: Start: 10-13-2024 End: 10-13-2024 Patient encounter procedure 10/13/2024 2:30 PM EDT Office Visit [facility] [address] [place] [phone] Jenifer Sheppard PA [address] [facility] [address] [place] [address] [facility] Start: 09-08-2024 End: 09-08-2025 MR Hip - right Arthrogram MR hip arthrogram right Imaging Routine Right hip impingement syndrome Expected: 09/08/2024, Expires: 09/08/2025 [facility] Work Phone: Comment on above: Expected: 09/08/2024 , Expires: 09/08/2025 Start: 09-08-2024 End: 09-08-2024 Patient encounter procedure 09/08/2024 2:00 PM EDT Office Visit [facility] [address] [place] [phone] Jenifer Sheppard PA [address] [facility] [address] [place] [address] Arrived [facility] Comment on above: Arrived Start: 08-30-2024 End: 08-30-2024 Patient encounter procedure 08/30/2024 10:45 AM EDT Office Visit [facility] [address] [place] [phone] Jen Garcia, [address] [place] [address] [facility] Start: 08-05-2024 End: 08-05-2024 Patient encounter procedure 08/05/2024 9:15 AM EDT Office Visit [facility] [address] [place] [phone] Vasu Hilton DPM [address] [place] [address] Arrived [facility] Comment on above: Arrived Start: 07-07-2024 End: 07-07-2024 Patient encounter procedure 07/07/2024 7:30 AM EDT Appointment Mammography [address] [place] [address] LEFT BREAST ULTRASOUND GUIDED CORE BIOPSY Mammography Comment on above: LEFT BREAST ULTRASOU ND GUIDED CORE BIOPSY Start: 06-07-2024 End: 06-07-2024 Patient encounter procedure 06/07/2024 8:40 AM EST Appointment MRI A10 [address] [address] Nipple discharge [N64.52] MRI A10 Comment on above: Nipple discharge [N6 4.52] Start: 06-02-2024 End: 06-02-2024 Patient encounter procedure 06/02/2024 8:15 AM EST Office Visit [facility] [address] [place] [phone] Jen Garcia DO [address] [place] [address] [facility] Start: 05-31-2024 End: 05-31-2024 ambulatory 05/31/2024 11:00 AM EST Results Only [facility] [address] [place] [address] [place] [facility] Start: 05-29-2024 End: 08-28-2024 [facility] HER[facility] DIAGNOSTIC CANCER PANEL [facility]AGNOST[facility] CANCER PANEL Lab Routine Family history of breast cancer Expected: 05/29/2024, Expires: 08/28/2024 [facility] Work Phone: Comment on above: Expected: 05/29/2024 , Expires: 08/28/2024 Start: 05-29-2024 End: 05-29-2024 ambulatory 05/29/2024 12:00 PM EST [facility] [address] [place] [address] Tegan Nichols, [place] [address] [place] [address] Fhx of breast cancer [facility] Comment on above: Fhx of breast cancer Start: 04-26-2024 Patient referral [facility] Work Phone: Start: 04-05-2024 End: 04-05-2024 Patient encounter procedure 04/05/2024 2:45 PM EST Office Visit [facility] [address] [address] Prince Mon PA-C [address] [place] [address] 2 month follow up/staff txg [facility] [place] Comment on above: 2 month follow up/st aff msg Start: 02-17-2024 End: 05-18-2024 INSULIN LIK GR FAC I INSULIN LIK GR FAC I Lab Routine Obesity, Class II, BMI 35-39.9 Expected: 02/17/2024, Expires: 05/18/2024 [facility] Work Phone: Comment on above: Expected: 02/17/2024 , Expires: 05/18/2024 Start: 02-17-2024 End: 05-18-2024 Thyrotropin [Units/volume] in Serum or Plasma THYROID STIMULATING HORMONE Lab Routine Obesity, Class II, BMI 35-39.9 Expected: 02/17/2024, Expires: 05/18/2024 [facility] Comment on above: Expected: 02/17/2024 , Expires: 05/18/2024 Start: 02-17-2024 End: 02-17-2024 Patient encounter procedure 02/17/2024 1:00 PM EDT Office Visit Endocrinology [address] [place] [address] Leobardo Anderson MD [address] [facility] [address] [place] [address] hormone issue Endocrinology Comment on above: hormone issue Start: 01-19-2024 End: 01-19-2024 Patient encounter procedure 01/19/2024 2:45 PM EDT Office Visit [facility] [address] [address] Prince Mon PA-C [address] [place] [address] post op Breast Center Comment on above: post op Start: 01-08-2024 End: 01-08-2024 Admission to same day surgery center Ambulatory Surgery Comment on above: RIGHT LIV EXCISIONA L BIOPSY Start: 01-08-2024 End: 01-08-2024 Exc breast les preop plmt rad marker open 1 les [facility] Start: 01-08-2024 Subsequent hospital visit by physician Ambulatory Surgery Comment on above: Breast fibroadenoma, right [D24.1] Start: 01-08-2024 End: 01-08-2024 Admission to same day surgery center 01/08/2024 7:30 AM EDT - 01/08/2024 8:50 AM EDT Surgery Ambulatory Surgery [address] [place] [address] Jackie Sutton MD [address] [place] [address] RIGHT LIV EXCISIONAL BIOPSY Ambulatory Surgery Comment on above: RIGHT LIV EXCISIONA L BIOPSY Start: 01-08-2024 End: 01-08-2024 Exc breast les preop plmt rad marker open 1 les EXCISION BREAST LESION IDENTIFIED BY PREOPERATIVE PLACEMENT RADIOLOGICAL MARKER, OPEN, SINGLE LESION Breast fibroadenoma, right 01/08/2024 7:30 AM EDT [facility] Start: 01-08-2024 Subsequent hospital visit by physician 01/08/2024 7:30 AM EDT Hospital Encounter Ambulatory Surgery [address] [place] [address] Jackie Sutton MD [address] [facility] [place] [address] Breast fibroadenoma, right [D24.1] Ambulatory Surgery Comment on above: Breast fibroadenoma, right [D24.1] Start: 01-07-2024 End: 01-07-2024 Patient encounter procedure 01/07/2024 9:30 AM EDT Appointment Mammography [address] [address] liv Mammography Comment on above: liv Start: 12-31-2023 End: 12-31-2023 Anesthesia consultation 12/31/2023 3:00 PM EDT PAT Pre Anesthesia [address] [place] [address] virual preop Pre Anesthesia Comment on above: virual preop Start: 12-26-2023 Bacteria identified in Urine by Culture [facility] Start: 12-26-2023 End: 03-26-2024 CBC W Auto Differential panel - Blood COMPLETE BLOOD COUNT AND DIFFERENTIAL Lab Routine Preop testing Expected: 12/26/2023 (Approximate), Expires: 03/26/2024 [facility] Comment on above: Expected: 12/26/2023 (Approximate), Expires: 03/26/2024 Start: 12-26-2023 End: 03-26-2024 Comprehensive metabolic 2000 panel - Serum or Plasma COMPREHENSIVE METABOLIC PANEL Lab Routine Preop testing Expected: 12/26/2023 (Approximate), Expires: 03/26/2024 [facility] Work Phone: Comment on above: Expected: 12/26/2023 (Approximate), Expires: 03/26/2024 Start: 12-21-2023 Covid-19 Vaccine ( season) Covid-19 Vaccine ( season) [facility] Start: 12-21-2023 Covid-19 Vaccine ( season) Covid-19 Vaccine ( season) [facility] Start: 12-21-2023 Influenza vaccination C [facility] Start: 09-16-2023 End: 09-16-2023 Patient encounter procedure 09/16/2023 9:00 AM EDT Office Visit Breast Center [address] [address] Jackie Sutton MD [address] [place] [address] New Consult Breast Center Comment on above: New Consult Start: 09-08-2023 End: 09-08-2023 Patient encounter procedure 09/08/2023 2:00 PM EDT Appointment Mammography [address] [address] RIGHT BREAST ULTRASOUND GUIDED CORE BIOPSY Mammography Comment on above: RIGHT BREAST ULTRASO UND GUIDED CORE BIOPSY Start: 08-07-2023 End: 11-06-2023 Thyrotropin [Units/volume] in Serum or Plasma THYROID STIMULATING HORMONE Lab Routine Nipple discharge Expected: 08/07/2023, Expires: 11/06/2023 [facility] Work Phone: Comment on above: Expected: 08/07/2023 , Expires: 11/06/2023 Start: 04-21-2023 Behavioral Health Screening Behavioral Health Screening [facility] Start: 12-20-2022 Covid-19 Vaccine () Covid-19 Vaccine () [facility] Start: 05-02-2022 [facility] Start: 04-25-2022 Total hysterectomy v ia vaginal approach OR Vag Hyster Lap Assist TLH/LAVH (Not Applicable) [facility] Start: 04-24-2022 Blood chemistry [facility] Start: 04-24-2022 Hepatic function panel [facility] Start: 04-24-2022 Lipase measurement [facility] Start: 04-24-2022 [facility] Start: 2019 Screening for malign ant neoplasm of cervix HPV Testing [facility] Start: 02-19-2016 HPV Vaccine (1 - 3-d ose SCDM series) HPV Vaccine (1 - 3-dose SCDM series) [facility] Start: 02-06-2015 Screening for malign ant neoplasm of cervix Pap Testing [facility] Start: 04-15-2014 Hepatitis B Vaccine (3 of 3 - 19+ 3-dose series) Hepatitis B Vaccine (3 of 3 - 19+ 3-dose series) [facility] Start: 02-06-2013 Screening for malign ant neoplasm of cervix Cervical Cancer Screening [facility] Start: 02-19-2008 Hepatitis B Vaccine (1 of 3 - 19+ 3-dose series) Hepatitis B Vaccine (1 of 3 - 19+ 3-dose series) [facility] Start: 02-19-2008 Urine microalbumin profile DTaP,Tdap,Td Vaccine (1 - Tdap) [facility] Start: 2007 Anxiety Screening Anxiety Screening [facility] Start: 2007 Depression Screening Depression Scre kristine [facility] Start: 2007 Hepatitis C screening Hepatitis C Sc socorrosidney [facility] Start: 2007 HIV screening HIV Screening [facility] Bacteria identified in Urine by Culture [facility] Bacteria identified in Urine by Culture [facility] End: 08-08-2025 DBT Breast - left diagnostic for implant SAJI DIAG W HARVEY LEFT Radiology Routine Nipple discharge 1 Occurrences starting 07/09/2024 until 08/08/2025 [facility] Work Phone: Comment on above: 1 Occurrences starti ng 07/09/2024 until 08/08/2025 Exc breast les preop plmt rad marker open 1 les EXCIS BREAST LES W XRAY MARKER Procedures Routine Breast fibroadenoma, right Ordered: 12/26/2023 [facility] Comment on above: Ordered: 12/26/2023 End: 09-04-2024 MG Breast - bilateral Diagnostic SAJI DIAGNOSTIC BILATERAL Radiology Routine Disorder of breast 1 Occurrences starting 08/06/2023 until 09/04/2024 [facility] Work Phone: Comment on above: 1 Occurrences starti ng 08/06/2023 until 09/04/2024 End: 02-02-2026 MG Breast - bilateral Diagnostic SAJI DIAGNOSTIC BILATERAL Radiology Routine Mass of right breast, unspecified quadrant Nipple discharge 1 Occurrences starting 01/03/2025 until 02/02/2026 [facility] Work Phone: Comment on above: 1 Occurrences starti ng 01/03/2025 until 02/02/2026 End: 01-24-2025 MG Guidance for needle localization of Breast - right SAJI NDL LOC W SAJI GD RIGHT Radiology Routine Breast fibroadenoma, right 1 Occurrences starting 12/26/2023 until 01/24/2025 [facility] Comment on above: 1 Occurrences starti ng 12/26/2023 until 01/24/2025 MR Ankle - left WO contrast MR ankle left wo IV contrast Imaging Routine Plantar fasciitis Ordered: 08/05/2024 [facility] Work Phone: Comment on above: Ordered: 08/05/2024 End: 04-11-2025 MR Breast - bilateral WO and W contrast IV MRI BREAST WO/W IVCON BILATERAL Radiology Routine Nipple discharge 1 Occurrences starting 03/12/2024 until 04/11/2025 [facility] Work Phone: Comment on above: 1 Occurrences starti ng 03/12/2024 until 04/11/2025 MR Breast - bilatera l WO and W contrast IV MRI BREAST WO/W IVCON BILATERAL Radiology Routine Nipple discharge 05/20/2024 1:09 PM EST [facility] Work Phone: Patient Education Seizures, Adult ED [facility] Work Phone: Patient referral [facility] Work Phone: SURGICAL PATHOLOGY [facility] Work Phone: Comment on above: Release Upon Orderin g for 1 Occurrences starting 09/08/2023, 1 completed Tissue Pathology bio psy report [facility] Work Phone: Comment on above: Release Upon Orderin g for 1 Occurrences starting 07/07/2024, 1 completed URINE FREE CORTISOL BY LC-MS/MS URINE FREE CORTISOL BY LC-MS/MS Lab Routine Obesity, Class II, BMI 35-39.9 Ordered: 02/17/2024 [facility] Comment on above: Ordered: 02/17/2024 End: 08-08-2025 US Breast - left limited US BREAST LTD LEFT Radiology Routine Nipple discharge 1 Occurrences starting 07/09/2024 until 08/08/2025 [facility] Comment on above: 1 Occurrences starti ng 07/09/2024 until 08/08/2025 End: 08-05-2025 US Guidance for biopsy of Breast - left US BIOPSY BREAST LEFT Radiology Routine Abnormal finding on breast imaging 1 Occurrences starting 07/06/2024 until 08/05/2025 [facility] Work Phone: Comment on above: 1 Occurrences starti ng 07/06/2024 until 08/05/2025 [facility] Immunizations Immunization Date Immunization Notes Care Provider Tiffany workman 2014 hepatitis B vaccine, adult dosage [facility] 2014 influenza, injectable, quadrivalent, preservative free [facility] 2014 measles, mumps and rubella virus vaccine [facility] 2014 influenza virus vaccine, unspecified formulation Franchesca Man PA-C Work Phone: [facility] 01-18-2013 hepatitis B vaccine, adult dosage [facility] 01-18-2013 measles, mumps and rubella virus vaccine [facility] NEGATED: Highlighted row has not occurred!05-16-2021 SARS-CoV-2 (COVID-19) Ad26 vaccine, recombinant Erin Chavez [facility] Payers Date Payer Category Payer Self-pay [id number] 2022 Private Health Insurance [facility] [id number] 2022 Medicaid [id number] 2014 Unknown [id number] 1.2.840.695620.1.13.239.2. 7.3.290412.315 1989 Unknown [id number] 2.16.840.1.811193.3.579.2. 593 1989 Unknown [id number] 2.16.840.1.619918.3.579.2. 593 1989 Unknown [id number] 2.16.840.1.564605.3.579.2. 593 1989 Unknown [id number] 2.16.840.1.319535.3.579.2. 593 1989 Unknown [id number] 2.16.840.1.281617.3.579.2. 593 1989 Unknown [id number] 2.16.840.1.186835.3.579.2. 593 1989 Unknown [id number] 2.16.840.1.910144.3.579.2. 593 1989 Unknown [id number] 2.16.840.1.626667.3.579.2. 727 1989 Unknown [id number] 2.16.840.1.925861.3.579.2. 727 1989 Unknown [id number] 2.16.840.1.512886.3.579.2. 182 1989 Unknown [id number] 2.16.840.1.260930.3.579.2. 1259 1989 Unknown [id number] 2.16.840.1.917161.3.579.2. 1259 1989 Unknown [id number] 2.16.840.1.359586.3.579.2. 1259 1989 Unknown [id number] 2.16.840.1.204362.3.579.2. 1259 1989 Unknown [id number] 2.16.840.1.299310.3.579.2. 1259 1989 Unknown [id number] 2.16.840.1.800773.3.579.2. 1259 1989 Unknown [id number] 2.16.840.1.447611.3.579.2. 1259 1989 Unknown [id number] 2.16.840.1.610298.3.579.2. 1259 1989 Unknown [id number] 2.16.840.1.052237.3.579.2. 1259 1959 Medicaid [id number] 1959 Unknown [id number] 2.16.840.1.857616.19 Unknown Regular Auto/Liability [id number] Unknown [id number] 2.16.840.1.263297.3.579.2. 531 Unknown [id number] 2.16.840.1.942499.3.579.2. 531 Unknown [id number] 2.16.840.1.551265.3.579.2. 531 Social History Date Type Detail Facility Start: 05-16-2021 End: 12-26-2023 Tobacco smoking status Never smoked tobacco (finding) [facility] Start: 06-14-2013 Tobacco smoking status Never [facility] Start: 01-13-2023 End: 08-07-2023 Sex Assigned At Female [facility] Other Start: 1990 Sex Assigned At Female [facility] Tobacco smoking status [facility] Tobacco smoking consumption unknown [facility] Start: 01-13-2023 End: 08-07-2023 History of Social function [facility] Start: 1990 Sex Assigned At Not on file [facility] Start: 06-18-2023 End: 12-26-2023 Tobacco use and exposure Smokeless tobacco non-user [facility] Start: 12-26-2023 End: 05-29-2024 Alcoholic beverage intake Current drinker of alcohol (finding) [facility] Start: 12-26-2023 Alcohol Comment socially [facility] Start: 01-06-2024 Alcohol Comment about 1-2 time s per month will have ~2 drinks [facility] Start: 04-26-2024 End: 07-26-2024 Sex Female (finding) [facility] How often to you have a drink containing alcohol? Monthly or less [facility] How many standard drinks containing alcohol do you have on a typical day? 1 or 2 [facility] How often do you have 6 or more drinks on 1 occasion? Never [facility] Start: 07-02-2023 Alcohol Comment A month [facility] Start: 08-14-2016 Alcoholic beverage intake [facility] NEGATED: Highlighted row [facility] Medical Equipment Procedure Code Equipment Code Equipment Origin al Text Equipment Identifier Dates Ultrasoujnd Clip [id number] Start: 09-08-2023 Comment on above: Description: Hydroma rk coil Ultrasound Liv [id number] Start: 01-07-2024 Comment on above: Description: Liv Goals Date Patient Goal Desired Activity /State Functional Status Date Assessment Result Facility 11-22-2022 Functional Status N/A [facility] 03-07-2021 Are you deaf, or do you have serious difficulty hearing No 03/07/2021 11:35 PM Toya Vázquez, JUS No [facility] 03-07-2021 Are you blind, or do you have serious difficulty seeing, even when wearing glasses No 03/07/2021 11:35 PM Toya Vázquez, RN No [facility] 03-07-2021 Do you have serious difficulty walking or climbing stairs No 03/07/2021 11:35 PM Toya Vázquez, JUS No [facility] 03-07-2021 Do you have difficul ty dressing or bathing No 03/07/2021 11:35 PM Toya Vázquez, JUS No [facility] 03-07-2021 Because of a physica l, mental, or emotional condition, do you have difficulty doing errands alone such as visiting a physician's office or shopping No 03/07/2021 11:35 PM Toya Vázquez, RN No [facility] Mental Status Date Assessment Result Facility 03-07-2021 Because of a physica l, mental, or emotional condition, do you have serious difficulty concentrating, remembering, or making decisions No 03/07/2021 11:35 PM Toya Vázquez, RN No [facility] Clinical Notes 03-06-2021 to 01-03-2025 Telephone Encounter - Adriana Hurley RN - 01/03/2025 12:39 PM EDTTelephone Encounter - Adriana Hurley RN - 01/03/2025 12:39 PM EDTTelephone Encounter - SIVAN Pedro - 09/30/2024 4:39 PM EDT Note Date & Type Note Facility 01-03-2025 Telephone encount er Note Patient scheduled to see SIVAN Chavez in the breast center for her 6 month follow up with diagnostic imaging prior for her left breast on 01/13. It was noted via a mychart appointment request the patient commented new lump . Contacted the patient to determine which side the new breast lump is located. Patient stated the new lump is noted on her right breast. Will have a bilateral diagnostic imaging order placed. [facility] 01-03-2025 Miscellaneous Notes Formattin g of this note might be different from the original. Patient scheduled to see SIVAN Chavez in the breast center for her 6 month follow up with diagnostic imaging prior for her left breast on 01/13. It was noted via a mychart appointment request the patient commented new lump . Contacted the patient to determine which side the new breast lump is located. Patient stated the new lump is noted on her right breast. Will have a bilateral diagnostic imaging order placed. documented in this encounter [facility] 09-30-2024 Telephone encount er Note Tried to call, got voicemail- will send message in portal. [facility] 09-30-2024 Miscellaneous Notes Formattin g of this note might be different from the original. Tried to call, got voicemail- will send message in portal. Patient called asking about her MRI results. Please advise [phone]. documented in this encounter [facility] 09-30-2024 Telephone encount er Note Patient called asking about her MRI results. Please advise [phone]. [facility] 09-24-2024 Note RIGHT HIP MRI ARTHRO GRAM/GADOLINIUM [...] 09/08/2025 Scheduling Instructions: MRI ARTHROGRAM RT HIP BREANA GALEANO; PLEASE CALL PT TO SCHEDULE Is the patient ?: No Reason for exam:: INTERNAL DERANGEMENT RT HIP Ambulatory referral to Physical Therapy Standing Status: Future Expected Date: 09/08/2024 Expiration Date: 03/11/2025 Referral Priority: Routine Referral Type: Consultation Referral Reason: Specialty Services Required Referral Location: [facility] Sched[facility] Requested Specialty: Physical Therapy Number [...] requiring urgent evaluation. Visit was preformed using [employer]-renal medicine specialist speech recognition. documented in this encounter [facility] 08-05-2024 History of Presen t illness Narrative [...] current diagnosis. 2. Order was placed into [facility] for MRI leftankle. 3. Patient was instructed [...] RTC: following MRI. documented in this encounter [facility] 07-26-2024 Evaluation note Diagnosis Onset Date Resolution BMI 39.0-39.9,adult noneactive July 26, 2024 3:01pm BMI 38.0-38.9,adult noneactive August 272024 9:34am Body mass index (BMI) of 38.0 to 38.9 in adult noneactive October 18, 2024 1:36pm [facility] Work Phone: 1(728) 330-673503-21-2025 Telephone encounter Note* Telephone Encounter - Prince Mon PA-C - 07/09/2024 4:47 PM EDT Called and spoke with patient reviewed benign biopsy and recommendation for 6 month follow up. I will see her back in 6 months with imaging and exam same day. [facility]03-21-2025 Miscellaneous Notes* Telephone Encounter - Prince [...] to speak with her about her results. [phone]. documented in this encounter[facility]25 Telephone encounter Note * Telephone Encounter - Yaya Velasco - 07/09/2024 4:33 PM EDT Patient stated she missed a call from Dr. Friedman office not to long ago. I saw someone called her regarding her results pathology, Lou Miller. Patient said she sees Prince Mon and wanted to speak with her about her results. [phone]. [facility]03-21-2025 Telephone encounter Note* Telephone Encounter - Lou Miller RN - 07/09/2024 2:26 PM EDT Called patient to notify the breast pathology results are benign per Dr. Perla. Informed patient a 6 month follow up is recommended. Patient verbalized understanding. [facility] Work Phone: [phone]) [phone] Miscellaneous Notes* Telephone Encounter - Lou Miller RN - 07/09/2024 2:26 PM EDT Called patient to notify the breast pathology results are benign per Dr. Perla. Informed patient a 6 month follow up is recommended. Patient verbalized understanding. documented in this encounterOhio[facility]-19-2025 Instructions* Patient Education - Alyssa Tovar CT - 07/07/2024 8:08 AM EDT Patient was given an At Home Instructions pamphlet which was verbally reviewed by mamm tech. [facility]03-19-2025 NoteHNO ID: [id number] Author: ALYSSA TOVAR CT Service: Radiology Author Type: Technologist Type: Patient Education Filed: 07/07/2024 08:08 Note Text: Patient was given an At Home Instructions pamphlet which was verbally reviewed by mamm tech.[facility] [id number] Miscellaneous Notes* Patient Education - Alyssa Tovar CT - 07/07/2024 8:08 AM EDT Patient was given an At Home Instructions pamphlet which was verbally reviewed by mamm tech. documented in this encounterOhio[facility]25 History of Present illness Narrative* Alexsander Kim, RT(R) - 07/07/2024 7:30 AM EDT Radiology [...] PRESENTS WITH AN IMPLANTABLE OR ATTACHED SOCIAL SERVICES TECHNICIAN: No RADIOLOGY DEPARTMENT: Mammography PERIPHERAL IV DATA: Not applicable SIGNED BY: Swapna RODRIGUEZ July 07, 2024 8:22 AM documented in this encounterOhiohealth [facility]03-19-2025 NoteHNO ID: [id number] Author: ALEXSANDER KIM RT(R) Service: Radiology Author [...] PRESENTS WITH AN IMPLANTABLE OR ATTACHED SOCIAL SERVICES TECHNICIAN: No RADIOLOGY DEPARTMENT: Mammography PERIPHERAL IV DATA: Not applicable SIGNED BY: Swapna RODRIGUEZ July 07, 2024 8:22 AMKettering [id number] Telephone encounter Note* Telephone Encounter - Prince Mon PA-C - 06/28/2024 12:37 PM EDT Returned patient's call regarding additional questions from imaging on 06/25 and recommendation for left retroareolar biopsy. Questions answered and patient appreciative of call. Will follow up biopsy results. Prince Mon PA-C [facility] Work Phone: 1(497) 396-327603-10-2025 Miscellaneous Notes* Telephone Encounter - Prince oMn PA-C - 06/28/2024 12:37 PM EDT Returned patient's call regarding additional questions from imaging on 06/25 and recommendation for left retroareolar biopsy. Questions answered and patient appreciative of call. Will follow up biopsy results. Prince Mon PA-C documented in this encounterOhiohealth [facility]03-07-2025 History of Present illness Narrative* Masha [...] PRESENTS WITH AN IMPLANTABLE OR ATTACHED SOCIAL SERVICES TECHNICIAN: No RADIOLOGY DEPARTMENT: Ultrasound PERIPHERAL IV DATA: Not applicable SIGNED BY: Damion Hudson June 25, 2024 2:11 PM documented in this encounterOhiohealth [facility]03-07-2025 Miscellaneous Notes* Addendum Note - Masha [...] Check Out activity completed documented in this encounterOhiohealth [facility]03-07-2025 Note* Addendum Note - Masha Johnston Tech - 06/25/2024 1:30 PM ESTEncounter addended by: Masha Johnston Tech on: 06/25/2024 2:11 PM Actions taken: Clinical Note Signed [facility]03-07-2025 Note* Addendum Note - Masha Johnston Tech - 06/25/2024 1:30 PM ESTEncounter addended by: Masha Johnston Tech on: 06/25/2024 2:45 PM Actions taken: Document edited, SmartForm saved, Document E-signed, Check Out activity completed [facility]03-07-2025 NoteHNO ID: [id number] Author: MASHA JOHNSTON Tech Service: ? Author [...] PRESENTS WITH AN IMPLANTABLE OR ATTACHED SOCIAL SERVICES TECHNICIAN: No RADIOLOGY DEPARTMENT: Ultrasound PERIPHERAL IV DATA: Not applicable SIGNED BY: Damion Hudson June 25, 2024 2:11 [facility]03-07-2025 History of Present illness Narrative* Prince Mon PA-C - 06/25/2024 11:30 AM EST Images from the original note were not included. [facility] [place] Department of Breast Surgical Oncology [facility] FOLLOW UP HPI: Sully Enriquez is [...] the interval, she also saw her local INSPECTOR WATCH TRAIN and was started on Estrace. She has not yet noticed any change in symptoms. Continues to report bilateral diffuse breast pain. She removed bilateral nipple piercings a couple weeks ago. Genetic testing completed 05/31/2024. Multi-Cancer panel through [employer] was negative for a pathogenic variant. Denies [...] Strain: Low Risk (12/17/2023) Received from [facility] Overall Financial Resource Strain (CARDIA) Difficulty of Paying Living Expenses: Not hard at all Food Insecurity: No Food Insecurity (12/17/2023) Received from [facility] Hunger Vital Sign Within the past 12 months, you worried that your food would run out before you got the money to buymore.: Never true Transportation Needs: No Transportation Needs (12/17/2023) Received from [facility] Transportation In the past 12 months, has lack of transportation kept you from medical appointments or from getting medications?: No Housing Stability: Low Risk (12/17/2023) Received from [facility] Housing Stability Vital Sign In the last [...] was discussed with the patient or authorized front desk representative. The patient or authorized front desk representative has agreed to proceed with the [...] completed on an independent workstation. An additional 5-[id number] resolution sequence was performed after the first two 1 minute post-contrast sequences. Complex volumetric analysis requiring post processing was performed using a semi-automated software [employer], on an independent workstation by the physician, [...] which included preparing to see the patient, [id number] patient care, completing clinical documentation, obtaining and/or [...] NO Does patient want to see a Ore Storage Drier? No (yes to any of above refer [...] By: Orlando Pollard LPN documented in this encounterOhiohealth [facility]03-07-2025 NoteHNO ID: [id number] Author: PRINCE MON PA-C Service: ? Author Type: Physician Casino Manager Type: Progress Notes Filed: 06/25/2024 16:11 Note Text: [facility] [place] Department of Breast Surgical Oncology [facility] FOLLOW UP HPI: Sully Enriquez is [...] the interval, she also saw her local INSPECTOR WATCH TRAIN and was started on Estrace. She has not yet noticed any change in symptoms. Continues to report bilateral diffuse breast pain. She removed bilateral nipple piercings a couple weeks ago. Genetic testing completed 05/31/2024. Multi-Cancer panel through [employer] was negative for a pathogenic variant. Denies [...] The breasts are heterogeneou (more content not included)...[facility]03-07-2025 NoteHNO ID: [id number] Author: ORLANDO POLLARD LPN Service: ? Author Type: LICENSED NURSE Type: Progress Notes Filed: 06/25/2024 11:26 Note Text: Additional intake questions: Has the patient had fever, nausea, vomiting, diarrhea, constipation, fatigue for > 1 week? No Does the patient have a decreased appetite? NO Does patient want to see a Ore Storage Drier? No (yes to any of above refer patient to schedulers for dietitian appointment) ) Does patient have any new or increased numbness or tingling of extremities? No Is patient interested in fertility information? No Does patient need any prescription refills? No Does patient have an advanced directive in place? No, Patient referred to Resource Center Electronically Signed By: SERGIO [facility] 06-07-2024 Progress note* Result Encounter Note - Tegan Nichols MS - 06/07/2024 9:15 AM EST Genetic test results Sully Enriquez's Multi-Cancer panel through [employer] was negative for a pathogenic variant. Please see Reclip[employer]It message for further discussion. Tegan Nichols MS Licensed, Certified Genetic Counselor [facility] Work Phone: 1(351) 966-630602-17-2025 Miscellaneous Notes* Result Encounter Note - Tegan Nichols MS - 06/07/2024 9:15 AM EST Genetic test results Sully Enriquez's Multi-Cancer panel through [employer] was negative for a pathogenic variant. Please see Reclip[employer]It message for further discussion. Tegan Nichols MS Licensed, Certified Genetic Counselor documented in this encounterOhiohealth [facility]ert Hospital02-12-2025 History of Present illness Narrative* Radha Charlton MA - 06/02/2024 8:15 AM EST Images from the original note were not included. Jen Garcia, DO Obstetrics and Gynecology Sully Enriquez 1990 06/02/24 [id number] Breast Exam Chief Complaint Patient presents with Breast Problem Had abnormal mammogram 06/2023, consulted with Dr. Belle. Had 2nd opinion at [facility] and was advisedpossible hormone cause. New bloody discharge earlier this month, had appt with Dr. Belle. Had televisit with genetic counselor 05/29/24. Has had piercings in for 15 years, did not remove. Menopause [facility] 05/02/2022. Thinks nick-menopause. C/o mood swings, night [...] Prolactin drawn at this time 5.4. 06/25/23 ([facility]) - diagnostic bilateral mammogram/US - diffuse heterogenous density. In theright breast at 8:00 approximately 4 to 5 cm from the nipple, is a hypoechoic avascular area that measures 2.0 x 1.6 x 1.1 cm. In the right upper outer quadrant of the breast at 2.8 x 1.0 x 2.8 cm lymph node is seen. There is no cortical thickening. 07/07/23 ([facility] - [place] guided CNB 8:00 [...] Date 06/02/24 Time 5:00PM. documented in this encounterMercy Hospital [id number] NoteHNO ID: [id number] Author: TEGAN NICHOLS MS Service: ? Author Type: Genetic Counselor Type: Progress Notes Filed: 06/08/2024 10:01 Note Text: [facility] Department of Medical Genetics Consultation Note Genetic Counselor: Tegan Nichols MS, [facility] [place] Patient: Sully Enriquez Patient Name and confirmed at initiation of visit. This visit was conducted via [employer]. I have communicated my name and active licensure. The patient's identity and physical location were verified at the time of this visit. Either the patient or their legal front desk representative has been informed of the risks [...] her 40s The patient's ancestors are of Bruneian and Turkish descent. There is no known Ashkenazi Uatsdin ancestry. There is no known consanguinity. A [...] out as the expla (more content not included)...[facility]02-08-2025 History of Present illness Narrative* Tegan Nichols MS - 05/29/2024 11:54 AM EST [facility] Department of Medical Genetics Consultation Note Genetic Counselor: Tegan Nichols MS, [facility] [place] Patient: Sully Enriquez Patient Name and confirmed at initiation of visit. This visit was conducted via [employer]. Ihivy communicated my name and active licensure. The patient's identity and physical location were verified at the time of this visit. Either the patient or their legal front desk representative has been informed of the risks [...] her 40s The patient's ancestors are of [place]uneian and Turkish descent. There is no known Ashkenazi Uatsdin ancestry. There is no known consanguinity. A [...] is detected, the National Comprehensive Cancer Network and/orexpert opinion recommendations could include increased cancer surveillance [...] appropriate standard National Comprehensive Cancer Network and [place] [employer] guidelines, with consideration of their [...] for the following testing: Multi-Cancer panel through [employer]. The Multi-Cancer Panel includes AIP, ALK, APC, CHERIE, AXIN2, BAP1, BARD1, BLM, BMPR1A, BRCA1, BRCA2, BRIP1, CDC73, CDH1, CDK4, CDKN1B, CDKN2A, CHEK2, CTNNA1, DICER1, EGFR, EPCAM, FH, FLCN, GREM1, HOXB13, KIT, LZTR1, MAX, MBD4, MEN1, MET, MITF, MLH1, MSH2, MSH3, MSH6, MUTYH, NF1, NF2, NTHL1, PALB2, PDGFRA, PMS2, POLD1, POLE, POT1, DQACU1G, PTCH1, PTEN, RAD51C, RAD51D, RB1, RET, SDHA, SDHAF2, SDHB, SDHC, SDHD, SMAD4, SMARCA4, SMARCB1, SMARCE1, STK11, SUFU, NGLK375, TP53, TSC1, TSC2, and VHL The Multi-Cancer [...] to the presenting phenotype. We discussed that [employer] may call the patient regarding billing. The patient should watch for this communication and respond promptly. The patient should contact [employer] directly with any billing questions (ph. [phone] or [email or web address]). Per the patient's request, we will contact her by [employer] or telephone to review these results. A follow up genetic counseling visit will be scheduled if requested. The patient was seen for a total of 20 minutes, greater than 50% of which was spent aups-hl-etlp counseling. This plan is being carried out under the oversight of Dr. Jennifer Rashid. This note will also be sent to the referring provider via the electronic medical record. Tegan Nichols MS, [facility] CC: Dr. Prince Rashid documented in this encounterOhiohealth Van Wert [facility]02-06-2025 History of Present illness Narrative* Lucero Belle DO - 05/27/2024 3:00 PM EST Images from the original note were not included. Sully Enriquez 1990 Sully Enriquez is a 34 y.o. female presents with chief complaint of bloody nipple discharge (Breast MRI done) HPI: HPI Sully was recently operated on (Dec 2023) at [facility] for a right breast fibroadenoma. She [...] m Physical Exam Exam conducted with a automatic corn grinder operator present. HENT: Head: Normocephalic. Cardiovascular: Rate [...] 8:00 position in December 2023 at the [facility] . She underwent diagnostic right mammogram [...] a negative bilateral breast MRI at the [facility] on 05/20/24. Sully was told to get in touch with her COPPING MACHINE OPERATOR doctor to see if he wanted to [...] of doing that. She informed me that [facility] wants to do a 6 month [...] nipple distortion. She will follow up with [facility] and I will see her PRN. documented in this encounterMercy Hospital [id number] Telephone encounter Note* Telephone Encounter - Prince [...] advised discussing possible hormonal correlate with her cupola operator. In regards to her right bloody/clear spontaneous [...] of concern on self-exam. Prince Mon PA-C [facility] Work Phone: 1(136) 991-708802-02-2025 Miscellaneous Notes* Telephone Encounter - Prince Mon [...] advised discussing possible hormonal correlate with her cupola operator. In regards to her right bloody/clear spontaneous [...] self-exam. Prince Mon PA-C documented in this encounterOhiohealth Van Wert Hospital01-30-2025 History of Present illness Narrative* Keaton [...] 2024 TIME: 12:10 PM * Charly Galaviz RT(R) - 05/20/2024 12:40 PM EST Radiology Service [...] PRESENTS WITH AN IMPLANTABLE OR ATTACHED SOCIAL SERVICES TECHNICIAN: No RADIOLOGY DEPARTMENT: MR; Exam(s) Completed: Chest: Breast PERIPHERAL IV DATA: Site assessment: Clean,Dry and Intact, Site disposition Discontinued SIGNED BY: HAWA Hairston) May 20, 2024 1:28 PM documented in this encounterOhiohealth Van Wert Hospital01-30-2025 NoteHNO ID: [id number] Author: KEATON BANEGAS RN Service: Nursing Author [...] Clean,Dry and Intact 2 unsuccessful attempts by aHrsha Nix to try additonal IV attempts for patient SIGNATURE: Keaton Banegas RN PATIENT NAME: Sully Enriquez DATE: May 20, 2024 TIME: 12:10 [facility]01-30-2025 NoteHNO ID: [id number] Author: CHARLY GALAVIZ RT(Jd) Service: Radiology Author [...] PRESENTS WITH AN IMPLANTABLE OR ATTACHED SOCIAL SERVICES TECHNICIAN: No RADIOLOGY DEPARTMENT: MR; Exam(s) Completed: Chest: Breast PERIPHERAL IV DATA: Site assessment: Clean,Dry and Intact, Site disposition Discontinued SIGNED BY: RT Yovanny(R) May 20, 2024 1:28 [facility]01-21-2025 History of Present illness Narrative* Masha [...] Review Audit Reviewed by Thea Mishra MA (Residential Program Coordinator) on 05/11/24 at 1310 Medication Order Taking? Sig Documenting Provider Last Dose Status acetaminophen (Tylenol) 325 MG tablet [id number] No Take 650 mg by mouth every 6 (six) hours if needed Jen Garcia, DO Taking Active ALPRAZolam (Xanax) 2 MG tablet [id number] No Take 2 mg by mouth 2 (two) times a day as needed for anxiety Jen Garcia, DO Taking Active Bisacodyl EC 5 MG EC tablet [id number] No TAKE 1 TABLET BY MOUTH TWICE A DAY NEEDED FOR CONSTIPATION Jen Garcia, DO Taking Active montelukast (Singulair) 10 MG tablet [id number] No TAKE 1 TABLET BY MOUTH EVERY DAY FOR 30 DAYS Jen Garcia, DO Taking Active ondansetron ODT (Zofran-ODT) 4 MG disintegrating tablet [id number] No DISSOLVE 1 TABLET IN MOUTH 4 TIMES A DAY NEEDED FOR NAUSEA AND VOMITING Jen Garcia, DO Taking Active phentermine (Adipex-P) 37.5 MG tablet [id number] No Take 37.5 mg by mouth in the morning. Take beforemeals. Jen Garcia, DO Taking Active tiZANidine (Zanaflex) 4 MG tablet [id number] No TAKE 1 TABLET BY MOUTH EVERY 8 HOURS NEEDED FOR BACK SPAMS Jen Garcia, DO Taking Active valACYclovir (Valtrex) 1 g tablet [id number] No if needed Jen Garcia, DO Taking [...] Tongue midline without atrophy or fasciculations. Coordination Uowivz-wv-ugmx, rapid alternating movements and ohox-lw-qlaa normal bilaterally without dysmetria. Gait Normal casual, toe, heel and tandem gait. Motor Examination RUE Strength deltoid, biceps, triceps, wrist extensors, wrist extensors, wrist flexor, seismic prospecting observer helper strength 5/5. LUE Strength deltoid, biceps, triceps, wrist extensors, wrist extensors, wrist flexor, seismic prospecting observer helper strength 5/5. RLE Strength illopsoas, quadriceps, tibialis [...] Dr. Demetrio Connelly CMA documented in this encounterMercy Hospital [id number] Evaluation note* Diagnosis Onset Date Resolution Status Admit Date Hives noneactive May 07, 2024 8:50am BMI 39.0-39.9,adult noneactive July 26, 2024 3:01pm [facility] Work Phone: 1(237) 110-266301-06-2025 Hospital Discharge instructionsAmbulatory Orders* Referral to Neurology Time Frame: 04/26/24, Location: None Selected * Referral to Pain Management Time Frame: 04/26/24, Location: None Selected [facility] Work Phone: 1(643) 668-603211-22-2024 History of Present illness Narrative* Sharon Oro [...] PRESENTS WITH AN IMPLANTABLE OR ATTACHED SOCIAL SERVICES TECHNICIAN: No RADIOLOGY DEPARTMENT: Mammography PERIPHERAL IV DATA: Not applicable SIGNED BY: RT Tereso(R) March 12, 2024 10:48 AM Michela Anderson RT(R) - 03/12/2024 10:30 AM EST Radiology [...] PRESENTS WITH AN IMPLANTABLE OR ATTACHED SOCIAL SERVICES TECHNICIAN: No RADIOLOGY DEPARTMENT: Mammography PERIPHERAL IV DATA: Not applicable SIGNED BY: RT Latia(R) March 12, 2024 11:41 AM documented in this encounterOhiohealth Van Wert Hospital11-22-2024 NoteHNO ID: [id number] Author: MICHELA MCNEILL RT(R) Service: Radiology Author Type: Technologist [...] PRESENTS WITH AN IMPLANTABLE OR ATTACHED SOCIAL SERVICES TECHNICIAN: No RADIOLOGY DEPARTMENT: Mammography PERIPHERAL IV DATA: Not applicable SIGNED BY: RT Latia(Jd) March 12, 2024 11:41 [facility]11-22-2024 NoteHNO ID: [id number] Author: SHARON ORO RT(Jd) Service: ? Author [...] PRESENTS WITH AN IMPLANTABLE OR ATTACHED SOCIAL SERVICES TECHNICIAN: No RADIOLOGY DEPARTMENT: Mammography PERIPHERAL IV DATA: Not applicable SIGNED BY: HAWA Rider) March 12, 2024 10:48 [facility]11-22-2024 History of Present illness Narrative* Prince Mon PA-C - 03/12/2024 10:00 AM EST Images from the original note were not included. [facility] [place] Department of Breast Surgical Oncology [facility] FOLLOW UP HPI: Sully Enriquez is [...] Strain: Low Risk (12/17/2023) Received from [facility] Overall Financial Resource Strain (CARDIA) Difficulty of Paying Living Expenses: Not hard at all Food Insecurity: No Food Insecurity (12/17/2023) Received from [facility] Hunger Vital Sign Within the past 12 months, you worried that your food would run out before you got the money to buymore.: Never true Transportation Needs: No Transportation Needs (12/17/2023) Received from [facility] Transportation In the past 12 months, has lack of transportation kept you from medical appointments or from getting medications?: No Housing Stability: Low Risk (12/17/2023) Received from [facility] Housing Stability Vital Sign In the last [...] No history of dysuria, frequency or incontinence COPPING MACHINE OPERATOR: Negative for abnormal vaginal bleeding, abnormal vaginal [...] discussed with the Patient or Patient's Authorized Workers Compensation Coordinator. Asapplicable, any other physician, advance practice provider, medical student, or other health professional student that will be observing or involved in the sensitive examination for educational or training purposes was discussed with the Patient or Authorized Workers Compensation Coordinator. The Patient or Authorized Workers Compensation Coordinator has agreed to proceed with the sensitive [...] which included preparing to see the patient, wato-rj-tbxq patient care, completing clinical documentation, obtaining and/or reviewing separately obtained history, performing a medically appropriate examination, counseling and educating the pat ient/family/caregiver, ordering medications, tests, or procedures, and communicating results to thepatient/family/caregiver. Prince Mon PA-C documented in this encounterOhiohealth Van Wert Hospital11-22-2024 NoteHNO ID: [id number] Author: PRINCE MON PA-C Service: ? Author Type: Physician Casino Manager Type: Progress Notes Filed: 03/15/2024 16:18 Note Text: [facility] Department of Breast Surgical Oncology [facility] FOLLOW UP HPI: Sully Enriquez is [...] Strain: Low Risk (12/17/2023) Received from [facility] Overall Financial Resource Strain (CARDIA) Difficulty of Paying Living Expenses: Not hard at all Food Insecurity: No Food Insecurity (12/17/2023) Received from [facility] Hunger Vital Sign Within the past 12 months, you worried that your food would run out before you got the money to buy more.: Never true Transportation Needs: No Transportation Needs (12/17/2023) Received from [facility] Tr (more content not included)...[facility]11-04-2024 Evaluation note* Diagnosis Onset Date Resolution Status Admit Date Sinusitis noneactive February 23, 2024 2:29pm BMI 38.0-38.9,adult noneactive 2023 2:29pm Pseudoseizures acute April 2:25pm Seizure-like activity acute Apr 2:25pm Spasm of muscle of lower back noneac tive April 26, 2024 2:25pm Weakness of right leg noneactive Apr 2:25pm Numbness and tingling of right arm noneactive April 26 2:25pm [facility] Work Phone: 1(167) 190-142511-04-2024 Evaluation note* Diagnosis Onset Date Resolution Status Admit Date Sinusitis noneactive February 23, 2024 2:29pm BMI 38.0-38.9,adult noneactive Novem 2023 2:29pm Pseudoseizures acute April 2:25pm Seizure-like activity acute Apr 2:25pm Spasm of muscle of lower back noneac tive April 26, 2024 2:25pm Weakness of right leg noneactive Apr 2:25pm Numbness and tingling of right arm noneactive April 26 2:25pm Hives noneactive May 07, 2024 8:50am [facility] Work Phone: 1(587) 638-370510-29-2024 Instructions* Patient Instructions* Leobardo Anderson MD - 02/17/2024 1:53 PM EDT 24 hour urine collection: -go to lab to picking machine operator container -start collecting urine one morning -flush first urine that morning down toilet, then collect all urine after that in container until the following morning (include first urine of that morning into collection) -keep urine refrigerated during collection -drop off urine after collection is finished and get a blood test done that day documented in this encounterOhiohealth Van Wert Hospital10-29-2024 History of Present illness Narrative* Leobardo [...] No rash. LABS RESULTS: Recent Data from [facility] Related to Prolactin Component 06/18/23 06/24/19 PROLACTIN 5.4 6.6 ASSESSMENT & PLAN: Sully Enriquez is a 33 year old female here for evaluation of nipple discharge. (N64.52) Discharge from right nipple (primary encounter diagnosis) Comment: Unilateral. Normal prolactin. Not hormonally-mediated discharge. Plan: ENDOCRINE CONSULTATION (E66.302) Obesity, Class II, BMI 35-39.9 Comment: Since age 26. Unclear cause. I discuss with Pt about some elements related to nutrition. Will do some tests to r/o some endocrine causes. I offered Pt to establish care in Endocrine Weight Management. She mentioned she would reestablish care in clinic she used to go in [place]. Plan: INSULIN LIK GR FAC I, THYROID STIMULATING HORMONE, URINE FREE CORTISOL BY LC-MS/MS I spent a total of 59 minutes on the date of the service which included preparing to see the patient, lpzo-xu-xgtv patient care, completing clinical documentation, obtaining and/or reviewing separately obtained history, performing a medically appropriate examination, counseling and educating the pat ient/family/caregiver, and ordering medications, tests, or procedures. Return to office: TBD MD stanley Campbellc. Franchesca Man PA-C. documented in this encounterOhiohealth Van Wert Hospital10-29-2024 NoteHNO ID: [id number] Author: LEOBARDO ANDERSON MD Service: ? Author [...] no acute distr (more content not included)... [facility]10-11-2024 History of Present illness Narrative* Michela Mcneill RT(R) - 01/30/2024 10:15 AM EDT [...] PRESENTS WITH AN IMPLANTABLE OR ATTACHED SOCIAL SERVICES TECHNICIAN: No RADIOLOGY DEPARTMENT: Mammography PERIPHERAL IV DATA: Not applicable SIGNED BY: HAWA Jeffery) January 30, 2024 10:28 AM documented in this encounterOhiohealth Van Wert Hospital10-11-2024 NoteHNO ID: [id number] Author: MICHELA MCNEILL RT(R) Service: Radiology Author Type: Technologist [...] PRESENTS WITH AN IMPLANTABLE OR ATTACHED SOCIAL SERVICES TECHNICIAN: No RADIOLOGY DEPARTMENT: Mammography PERIPHERAL IV DATA: Not applicable SIGNED BY: RT Latia(R) January 30, 2024 10:28 [facility]10-11-2024 History of Present illness Narrative* Prince [...] No history of dysuria, frequency or incontinence COPPING MACHINE OPERATOR: Negative for abnormal vaginal bleeding, abnormal vaginal [...] discussed with the Patient or Patient's Authorized Workers Compensation Coordinator. Asapplicable, any other physician, advance practice provider, medical student, or other health professional student that will be observing or involved in the sensitive examination for educational or training purposes was discussed with the Patient or Authorized Workers Compensation Coordinator. The Patient or Authorized Workers Compensation Coordinator has agreed to proceed with the sensitive [...] which included preparing to see the patient, zldt-af-oybz patient care, completing clinical documentation, performing a medically appropriate examination, counseling and educating the patient/family/caregiver, ordering medications, tests, or procedures, independently interpreting results (not separately reported), and communicating results to the patient/family/caregiver. Prince Mon PA-C documented in this encounterOhiohealth Van Wert Hospital10-11-2024 NoteHNO ID: [id number] Author: PRINCE MON PA-C Service: ? Author Type: Physician Casino Manager Type: Progress Notes Filed: 01/30/2024 13:52 Note [...] as needed for sanket (more content not included)...[facility]09-30-2024 History of Present illness Narrative* Prince Mon [...] concerns. Prince Mon PA-C documented in this encounterOhiohealth Van Wert Hospital09-30-2024 NoteHNO ID: [id number] Author: PRINCE MON PA-C Service: ? Author Type: Physician Casino Manager Type: Progress Notes Filed: 01/19/2024 15:40 Note [...] answered; patient has no further concerns. SIVAN [facility]09-20-2024 Telephone encounter Note* Telephone Encounter - [...] she will order additional medication for pt. [facility]09-20-2024 Miscellaneous Notes* Telephone Encounter - Naresh [...] touch, nausea. Patient can be reached at [phone]. Thanks documented in this encounterOhiohealth Van Wert Hospital09-20-2024 Telephone encounter Note * Telephone Encounter - Anyi Cheatham - 01/09/2024 1:54 PM EDT Patient called stating that since last night she is experiencing right side pain and arm movement makes it worse (level 8), warm to touch, nausea. Patient can be reached at [phone]. Thanks [facility]09-19-2024 NoteHNO ID: [id number] Author: DEDRICK HARRIS AA Service: ? Author Type: Bench Tool Maker Type: Anesthesia Procedure Notes Filed: 01/08/2024 09:21 [...] January 08, 2024 TIME: 9:19 AM CSN: [id number]09-19-2024 NoteHNO ID: [id number] Author: DEDRICK HARRIS AA Service: ? 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 Staffing CAA: Dedrick Harris AA [...] January 08, 2024 TIME: 7:49 AM CSN: [id number] [facility]09-18-2024 Instructions* Patient Education - Masha Johnston Tech [...] SUPPLEMENTAL MATERIAL: Homegoing instructions REFERRAL (RECOMMENDATION): None [facility]09-18-2024 Miscellaneous Notes* Patient Education - Masha [...] instructions REFERRAL (RECOMMENDATION): None documented in this encounterOhiohealth Van Wert Hospital09-17-2024 Telephone encounter Note * Telephone Encounter [...] Russo PA-C January 06, 2024 2:13 PM [facility]09-17-2024 Miscellaneous Notes* Telephone Encounter - Camila [...] 06, 2024 2:13 PM documented in this encounterOhiohealth Van Wert Hospital09-17-2024 Instructions* Patient Instructions* Camila Russo PA-C - 01/06/2024 2:07 PM EDT PATIENT PREOPERATIVE INSTRUCTIONS Jackie Sutton, * has scheduled you for your procedure at this surgery center: [facility]: [phone] --[id number] [place] [address] Location is near [facility]. Arrival Time for Surgery: - The [...] Procedures: - YOU MUST HAVE A RESPONSIBLE INVERTEBRATE PALEONTOLOGIST TAKE YOU HOME. A CUSTOM BOW MAKER OR SOFTWARE DEVELOPMENT LEADER CANNOT BE MADE A RESPONSIBLE INVERTEBRATE PALEONTOLOGIST. - We recommend that a responsible person stays with you overnight to take care of you. - You cannot stay in a hotel alone after outpatient surgery. You will not be permitted to have yoursurgery, if you do not have someone to take care of you. If you already have an Advance Directive, please fax a copy to [phone] or email to for it to be [...] day. Camila Russo PA-C documented in this encounterOhiohealth Van Wert Hospital09-17-2024 History and physical note * Camila [...] surgeon This is a virtual visit using [employer] video visit. It required patient-provider interaction for themedical decision making as documented below. REASON FOR VISIT: Sully Enriquez is a 33 year old female who is scheduled for Procedure(s): RIGHT LIV EXCISIONAL BIOPSY (Right) at the request of Dr. Jackie Sutton, Jackie Robins MD for consultation. My final recommendation [...] virtual visit. The visit was conducted using [employer] video visit. It required patient-provider interaction for the medical decision making as documented below. I have communicated my name and active licensure. The patient's identity and physical location wereverified at the time of this visit. Either the patient or their legal front desk representative has been informed of the risks [...] chest pain, CHF, DVT/PE, hyperlipidemia, hypertension, recent CA, PTCA, PVD and open heart surgery. GI: Negative for: dysphagia, GERD, GI bleed <30 days, liver disease and ETOH >2 drinks/day. : +hx recurrent UTIs, recently tx'd for infection, finished course of antibiotic, sxs resolved Positive for: nephrolithiasis (IN PAST, had surgery). Negative for: dysuria, frequent urination, hematuria, urinary incontinence and renal failure. 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 Instructions Given to Patient: Instructions located in the after visit summary. Patient given verbal and written preop instructions and voices comprehension and compliance. SIGNATURE: Camila Russo PA-C PATIENT NAME: Sully Enriuqez DATE: January 06, 2024 TIME: 1:51 PM PAGER/CONTACT #: [facility] History and physical note* Camila Russo [...] surgeon This is a virtual visit using [employer] video visit. It required patient-provider interaction for themedical decision making as documented below. REASON FOR VISIT: Sully Enriquez is a 33 year old female who is scheduled for Procedure(s): RIGHT LIV EXCISIONAL BIOPSY (Right) at the request of Dr. Jackie Sutton, Jackie Robins MD for consultation. My final recommendation [...] virtual visit. The visit was conducted using MyChart video visit. It required patient-provider interaction for the medical decision making as documented below. I have communicated my name and active licensure. The patient's identity and physical location wereverified at the time of this visit. Either the patient or their legal front desk representative has been informed of the risks [...] chest pain, CHF, DVT/PE, hyperlipidemia, hypertension, recent CA, PTCA, PVD and open heart surgery. GI: Negative for: dysphagia, GERD, GI bleed <30 days, liver disease and ETOH >2 drinks/day. : +hx recurrent UTIs, recently tx'd for infection, finished course of antibiotic, sxs resolved Positive for: nephrolithiasis (IN PAST, had surgery). Negative for: dysuria, frequent urination, hematuria, urinary incontinence and renal failure. 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 Instructions Given to Patient: Instructions located in the after visit summary. Patient given verbal and written preop instructions and voices comprehension and compliance. SIGNATURE: Camila Russo PA-C PATIENT NAME: Sully Enriquez DATE: January 06, 2024 TIME: 1:51 PM PAGER/CONTACT #: documented in this encounterOhio[facility]09-13-[facility]24 Telephone encounter Note * Telephone Encounter - Yessenia Thorpe PA-C - 01/02/2024 11:24 AM EDT This [...] contact patient to reschedule? Thank you! Yessenia Thorpe PA-C [facility] Work Phone: 1(280) 675-314009-13-2024 Miscellaneous Notes* Telephone Encounter - Yessenia Thorpe PA-C - 01/02/2024 11:24 AM EDT This [...] contact patient to reschedule? Thank you! Yessenia Thorpe PA-C PACC documented in this encounterOhiohealth [facility]ert [facility]09-11-2024 Telephone encounter Note * Telephone Encounter - Candida Dumas APRN.CNP - 12/31/2023 3:03 PM EDT Patient was scheduled for virtual PACC appt at 1500 today. Patient did not check in for visit. Called patient at 1505, stated they forgot and needed to reschedule This message routed to PACC schedulers to contact patient to reschedule PACC appt. Candida Dumas APRN.CNP [facility] Work Phone: 1(847) 109-909409-11-2024 Miscellaneous Notes* Telephone Encounter - Candida Dumas APRN.CNP - 12/31/2023 3:03 PM EDT Patient was scheduled for virtual PACC appt at 1500 today. Patient did not check in for visit. Called patient at 1505, stated they forgot and needed to reschedule This message routed to PACC schedulers to contact patient to reschedule PACC appt. Candida Dumas APRN.CNP documented in this encounterOhiohealth Van Wert [facility]09-09-2024 Telephone encounter Note * Telephone Encounter - Edgard Cole MD - 12/29/2023 12:19 PM EDT I have reviewed and approved the localization plan. Images dated 09/08/2023 are annotated. Radiologist: Edgard Cole MD [facility] Work Phone: 1(941) 464-721709-09-2024 Miscellaneous Notes* Telephone Encounter - Edgard Cole [...] breast, please review with radiologist) Sully Enriquez [id number] 1990 WORK- UP COMPLETE? Yes Order Placed Yes Right - Site 1 Location 8:00 4-5cm fn Clip Shape Coil Clip Clip Migration No Pathology FibroAdenoma Preferred Localization liv * If clip migrated, please review with radiologist This Form Has Been Completed By Naresh Wallis On Behalf Of Dr. Sutton documented in this encounterOhiohealth Van W[facility]09-06-2024 Telephone encounter Note * Telephone Encounter - Naresh Wallis - 12/26/2023 3:22 PM EDT LOCALIZATION IMAGE REVIEW (Please do NOT submit until entire workup complete) (if > 3 reflectors to be placed in one breast, please review with radiologist) Sully Enriquez [id number] 1990 WORK- UP COMPLETE? Yes Order Placed Yes Right - Site 1 Location 8:00 4-5cm fn Clip Shape Coil Clip Clip Migration No Pathology FibroAdenoma Preferred Localization liv * If clip migrated, please review with radiologist This Form Has Been Completed By Naresh Wallis On Behalf Of Dr. Sutton [facility]09-06-2024 History and physical note* Jackie Sutton MD - 12/26/2023 1:00 PM EDT Images from the original note were not included. [facility] [place] Department of General Surgery [facility] REASON for TODAY'S VISIT: Patient presents with: New Patient REFERRAL: Referring Provider: Franchesca Man PCP: Keli Strickland NP, IT PROGRAMMER ANALYST My clinic note and plan will be [...] - Self palpated RIGHT breast mass. 06/25/23 ([facility]) - diagnostic bilateral mammogram/US - diffuse heterogenous density. In theright breast at 8:00 approximately 4 to 5 cm from the nipple, is a hypoechoic avascular area that measures 2.0 x 1.6 x 1.1 cm. In the right upper outer quadrant of the breast at 2.8 x 1.0 x 2.8 cm lymph node is seen. There is no cortical thickening. 07/07/23 ([facility] - US guided CNB 8:00 [...] with coil clip placement: Fibroadenoma.Concordant. 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 Stays [...] . Physical Exam Exam conducted with a automatic corn grinder operator present. Constitutional: General: She is not [...] Judgment normal. Ptosis: Grade II BREAST IMAGING: [facility] Breast Imaging was reviewed. Excerpts from Breast Imaging Studies Results US BREAST [facility] RIGHT (Acc#[id number]) (Order [id number]) Patient Info Patient Name Sex Sully Adam ([id number]) Female 1990 08/07/2023 1:24 PM - Radiology, Oru In Impression IMPRESSION: BENIGN FINDING No sonographic abnormality at the site of clinical concern at 9:00. Circumscribed mass right breast 8:00 which is previously biopsied and reportedly benign. Clinical follow-up is recommended. Annual screening mammogram is recommended per NCCN guidelines based on patient's risk factors for breast cancer. Lizbeth Winston M.D. ns/:08/07/2023 13:24:03 Linoleum Mechanic(s): RT Mirtha(R)(M), [facility] BI-RADS: 2 Benign finding Multiple national specialty organizations have released breast cancer screening guidelines for women at average risk for developing breast cancer - guidelines that are based on both evidence and opinion, yet differ on when to start and how often to screen for breast cancer. With representation from Breast Imaging, Internal Medicine, Women's Health, Family Medicine, and Medical/Surgical Oncology, the [facility] has carefully reviewed the data and [...] their providers when to stop screening mammograms. As400 Consultant: Vikas Transcribe Date/Time: Aug 07 2023 11:56A Dictated by : LIZBETH WINSTON MD This examination was interpreted and the report reviewed and electronically signed by: LIZBETH WINSTON MD on Aug 07 2023 1:24PM EST Results-Findings * * *Final Report* * * DATE OF EXAM: Aug 07 2023 12:08PM [facility] 0594 - [facility] US BREAST LTD RT / PROCEDURE REASON: multiple diagnoses * * * * Physician Interpretation * * * * RESULT: #[id number] - [facility] US BREAST LTD RT LIMITED [...] biopsied mass which is reportedly benign. Results [facility] DIAG W HARVEY RIGHT (Acc#[id number]) (Order [id number]) Patient Info Patient Name Sex Sully Adam ([id number]) Female 1990 09/11/2023 2:33 PM - Radiology, Oru In Addenda * * *Final Report* * * * * * SEE BOTTOM OF REPORT FOR ADDENDED TEXT * * * DATE OF EXAM: Sep 08 2023 2:52PM [facility] 0629 - [facility] DIAG W HARVEY RT / PROCEDURE REASON: multiple diagnoses * * * * Physician Interpretation * * * * RESULT: FINAL REPORT #[id number] - [facility] DIAG W HARVEY RT #[id number] - [facility] US BIOPSY BREAST RT [...] Almanzar performed the entire procedure without an executive assistant to general counsel. Audible Time Out Time: 1420 Procedure Start [...] surgical consultation. Lea Almanzar M.D., jr/vikas:09/11/2023 14:32:49 Linoleum Mechanic(s): RT Mane(R)(M), [facility] Multiple national specialty organizations have released breast cancer screening guidelines for women at average risk for developing breast cancer - guidelines that are based on both evidence and opinion, yet differ on when to start and how often to screen for breast cancer. With representation from Breast Imaging, Internal Medicine, Women's Health, Family Medicine, and Medical/Surgical Oncology, the [facility] has carefully reviewed the data and [...] their providers when to stop screening mammograms. As400 Consultant: Vikas Transcribe Date/Time: Sep 08 2023 2:52P Dictated by : LEA ALMANZAR MD This examination was interpreted and the report reviewed and electronically signed by: LEA ALMANZAR MD on Sep 08 2023 4:24PM EST This document has been addended by: LEA ALMANZAR MD on Sep 11 2023 2:32PM EST PATHOLOGY: SURGICAL PATHOLOGY: [id number] Order: [id number] Collected 09/08/2023 2:04 PM Status: Final result [...] to ask questions. Additional workup needed: LIV clean up helper banquet placement by BOTH (coil + unspecified) clips in RIGHT breast - fibroadenoma Interdisciplinary care and follow up: SURGICAL ONCOLOGY: Jackie Sutton MD Tentative surgical plan: RIGHT breast LIV-Code Official guided excision Consents were sent via TuVox. Postoperative analgesia was discussed. She WILL need prescriptions for tylenol, motrin, & gabapentin on the day of surgery. GLP-1 agonist or SGLT2 inhibitor use: No PRIMARY CARE PHYSICIAN: Ms. Enriquez is followed by Keli Strickland NP, IT PROGRAMMER ANALYST as scheduled. Ms. Enrqiuez will return to our office postoperatively. She has our names and numbers to contact us if she has any questions or concerns. Future Appointments Date Time Provider Department Center 02/17[facility]2024 1:00 PM [facility] MD, FACOG Breast Surgical Oncology & Benign Gynecology [facility] [address] [place] [address] Appointment cc: Franchesca Man [address] [place] [phone] Keli Strickland NP, IT PROGRAMMER ANALYST I spent a total of 30 minutes on the date of the service which included preparing to see the patient, [id number] patient care, completing clinical documentation, obtaining and/or reviewing separately obtained history, performing a medically appropriate examination, and counseling and educating the patient/family/caregiver. [facility]09-06-[facility] History and physical note* Jackie Sutton MD - 12/26/2023 1:00 PM EDT Images from the original note were not included. [facility] [place] Department of General Surgery [facility] REASON for TODAY'S VISIT: Patient presents with: New Patient REFERRAL: Referring Provider: Franchesca Man PCP: Keli Strickland NP, IT PROGRAMMER ANALYST My clinic note and plan will be [...] - Self palpated RIGHT breast mass. 06/25/23 ([facility]) - diagnostic bilateral mammogram/US - diffuse heterogenous density. In theright breast at 8:00 approximately 4 to 5 cm from the nipple, is a hypoechoic avascular area that measures 2.0 x 1.6 x 1.1 cm. In the right upper outer quadrant of the breast at 2.8 x 1.0 x 2.8 cm lymph node is seen. There is no cortical thickening. 07/07/23 ([facility] - US guided CNB 8:00 [...] with coil clip placement: Fibroadenoma.Concordant. 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 Stays [...] . Physical Exam Exam conducted with a automatic corn grinder operator present. Constitutional: General: She is not [...] Judgment normal. Ptosis: Grade II BREAST IMAGING: [facility] Breast Imaging was reviewed. Excerpts from Breast Imaging Studies Results US BREAST LTD RIGHT (Acc#[id number]) (Order [id number]) Patient Info Patient Name Sex Sully Adam ([id number]) Female 1990 08/07/2023 1:24 PM - Radiology, Oru In Impression IMPRESSION: BENIGN FINDING No sonographic abnormality at the site of clinical concern at 9:00. Circumscribed mass right breast 8:00 which is previously biopsied and reportedly benign. Clinical follow-up is recommended. Annual screening mammogram is recommended per NCCN guidelines based on patient's risk factors for breast cancer. Lizbeth Winston M.D. ns/:08/07/2023 13:24:03 Linoleum Mechanic(s): RT Mirtha(Jd)(M), [facility] Ul[facility] [...] Health, Family Medicine, and Medical/Surgical Oncology, the [facility] has carefully reviewed the data and [...] their providers when to stop screening mammograms. As400 Consultant: Vikas Transcribe Date/Time: Aug 07 2023 11:56A Dictated by : LIZBETH WINSTON MD This examination was interpreted and the report reviewed and electronically signed by: LIZBETH WINSTON MD on Aug 07 2023 1:24PM EST Results-Findings * * *Final Report* * * DATE OF EXAM: Aug 07 2023 12:08PM [facility] 0594 - [facility] BREAST LTD RT / PROCEDURE REASON: multiple diagnoses * * * * Physician Interpretation * * * * RESULT: #[id number] - [facility] BREAST [facility] RT LIMITED ULTRASOUND OF RIGHT BREAST: 08/07/2023 [...] biopsied mass which is reportedly benign. Results [facility] ISAACG W HARVEY RIGHT (Acc#[id number]) (Order [id number]) Patient Info Patient Name Sex Sully Adam ([id number]) Female 1990 09/11/2023 2:33 PM - Radiology, Oru In Addenda * * *Final Report* * * * * * SEE BOTTOM OF REPORT FOR ADDENDED TEXT * * * DATE OF EXAM: Sep 08 2023 2:52PM W 0629 - [facility] [place] HARVEY RT / PROCEDURE REASON: multiple diagnoses * * * * Physician Interpretation * * * * RESULT: FINAL REPORT #[id number] - [facility] [place] HARVEY RT #[id number] - [facility] US BIOPSY BREAST RT [...] Almanzar performed the entire procedure without an executive assistant to general counsel. Audible Time Out Time: 1420 Procedure Start [...] location, four cores were obtained using a Glimpse biopsy device. A Hydromark open coil clip [...] surgical consultation. Lea Almanzar M.D., jr/vikas:09/11/2023 14:32:49 Linoleum Mechanic(s): RT Mane(R)(M), [facility] Multiple national specialty organizations have released breast cancer screening guidelines for women at average risk for developing breast cancer - guidelines that are based on both evidence and opinion, yet differ on when to start and how often to screen for breast cancer. With representation from Breast Imaging, Internal Medicine, Women's Health, Family Medicine, and Medical/Surgical Oncology, the [facility] has carefully reviewed the data and [...] their providers when to stop screening mammograms. As400 Consultant: Vikas Transcribe Date/Time: Sep 08 2023 2:52P Dictated by : LEA ALMANZAR MD This examination was interpreted and the report reviewed and electronically signed by: LEA ALMANZAR MD on Sep 08 2023 4:24PM EST This document has been addended by: LEA ALMANZAR MD on Sep 11 2023 2:32PM EST PATHOLOGY: SURGICAL PATHOLOGY: [id number] Order: [id number] Collected 09/08/2023 2:04 PM Status: Final result [...] to ask questions. Additional workup needed: LIV clean up helper banquet placement by BOTH (coil + unspecified) clips in RIGHT breast - fibroadenoma Interdisciplinary care and follow up: SURGICAL ONCOLOGY: Jackie Sutton MD Tentative surgical plan: RIGHT breast LIV-Code Official guided excision Consents were sent via TuVox. Postoperative analgesia was discussed. She WILL need prescriptions for tylenol, motrin, & gabapentin on the day of surgery. GLP-1 agonist or SGLT2 inhibitor use: No PRIMARY CARE PHYSICIAN: Ms. Enriquez is followed by Keli Strickland NP, IT PROGRAMMER ANALYST as scheduled. Ms. Enriquez will return to our office postoperatively. She has our names and numbers to contact us if she has any questions or concerns. Future Appointments Date Time Provider Department Center 02/17/2024 1:00 PM [facility] Monalisa [facility] MD, FACOG Breast Surgical Oncology & Benign Gynecology [facility] [address] [facility] [address] [place] [address] Appointment cc: Franchesca Man [address] [place] [address] [address] [place] [phone] Keli Strickland NP, IT PROGRAMMER ANALYST I spent a total of 30 minutes on the date of the service which included preparing to see the patient, [id number] patient care, completing clinical documentation, obtaining and/or reviewing separately obtained history, performing a medically appropriate examination, and counseling and educating the patient/family/caregiver. documented in this encounterOhiohealth Van [facility]ert [facility]08-28-2024 Note12/17/23 0702 Referral Data Referral Source therapeutic program worker Referral Reason Information Patient Information Accompanied by/Relationship spouseAngelika Activities of Daily Living Assistive Device Not applicable Living Arrangement (Current/Prior to Hospitalization) Private residence Behavior Oriented Income Information Income Source Employed Discharge Planning Support Systems Spouse/significant other Type of Residence Private residence Patient's goal for discharge home The patient was transferred from [facility] to [facility] to rule out cauda equina. The patient is present with her spouse, Angelika. The couple live together in [place], [place], denying any financial strains. She is employed. No active community resource. Her primary care provider is Dr. Mario Glasgow at [facility]. Her discharge plan [facility] home.[facility] Telephone encounter Note* Telephone Encounter - Franchesca Man PA-C - 09/12/2023 10:09 AM EDT Spoke to patient and relayed results from biopsy (benign FA). We discussed that because the FA is 2cm in size and bothersome it is reasonable to see a breast surgeon to discuss the possibility of excision. She is agreeable and voices understanding. Consult placed. [facility]05-24-2024 Miscellaneous Notes* Telephone Encounter - Franchesca Man PA-C - 09/12/2023 10:09 AM EDT Spoke to patient and relayed results from biopsy (benign FA). We discussed that because the FA is 2cm in size and bothersome it is reasonable to see a breast surgeon to discuss the possibility of excision. She is agreeable and voices understanding. Consult placed. documented in this encounterOhiohealth Van Wert Hospital05-23-2024 Telephone encounter Note * Telephone Encounter - Franchesca Man PA-C - 09/11/2023 3:24 PM EDT Called pt to discuss biopsy result and recommendations. No answer, will try back tomorrow morning. [facility]05-23-2024 Miscellaneous Notes* Telephone Encounter - Franchesca Man PA-C - 09/11/2023 3:24 PM EDT Called pt to discuss biopsy result and recommendations. No answer, will try back tomorrow morning. documented in this encounterOhiohealth Van [facility]ert Hospital05-23-2024 Telephone encounter Note * Telephone Encounter - Lou Miller RN - 09/11/2023 2:29 PM EDT Called patient to notify the breast pathology results are fibroadenoma per Dr. Almanzar. Patient willcall back to assist with surgical consult appt. Dr. Almanzar is aware. [facility]-23-2024 Miscellaneous Notes* Telephone Encounter - Lou Miller RN - 09/11/2023 2:29 PM EDT Called patient to notify the breast pathology results are fibroadenoma per Dr. Almanzar. Patient willcall back to assist with surgical consult appt. Dr. Almaznar is aware. documented in this encounterOhiohealth Van Wert Hospital05-20-2024 Instructions* Patient Education - Maritza Rodney RT(R) - [...] SUPPLEMENTAL MATERIAL: Homegoing instructions REFERRAL (RECOMMENDATION): None [facility]05-20-2024 Miscellaneous Notes* Patient Education - Maritza [...] instructions REFERRAL (RECOMMENDATION): None documented in this encounterOhiohealth Van Wert Hospital04-22-2024 Telephone encounter Note * Telephone Encounter - Franchesca Man PA-C - 08/11/2023 10:03 AM EDT Spoke to patient and gave her results of over-read. She wants to proceed with biopsy. Order placed. [facility]04-22-2024 Miscellaneous Notes* Telephone Encounter - Franchesca Man PA-C - 08/11/2023 10:03 AM EDT Spoke to patient and gave her results of over-read. She wants to proceed with biopsy. Order placed. documented in this encounterOhiohealth Van Wert Hospital04-18-2024 History of Present illness Narrative* Marylin Snyder RT(R) - 08/07/2023 11:15 AM EDT Radiology [...] PRESENTS WITH AN IMPLANTABLE OR ATTACHED SOCIAL SERVICES TECHNICIAN: No RADIOLOGY DEPARTMENT: Mammography PERIPHERAL IV DATA: Not applicable SIGNED BY: RT Campos(R) August 07, 2023 12:36 PM documented in this encounterOhiohealth Van Wert Hospital04-18-2024 History of Present illness Narrative* Franchesca Man PA-C - 08/07/2023 10:30 AM EDT MEDICAL BREAST PATIENT NAME: Sully Enriquez 08/07/2024 REFERRAL: She is self referred for an opinion regarding right breast biopsy. HISTORY of PRESENT ILLNESS: Sully Enriquez is a 33 year old year old premenopausal woman who [facility] to [facility] [place] today for second opinion of right breast biopsy. The patient deniesany breast skin changes. She reports 1 year history of bilateral diffuse breast pain R>L. She also reports bilateral milky nipple discharge for the past year. She notices this as a white crusting on her bra most days. Shehasn't breast fed in 13 years. She was seen for her breast related issues at [facility]) with care as follows: 06/25/23: Diagnostic bilateral DBT and US at [facility]): - RIGHT breast 8oclock 4-5cmfn hypoechoic [...] mammograms. A prolactin was previously ordered at [facility] (06/18/23) and [facility]. A TSH was ordered today. She was referred to endocrinology. She will come back if she notices a change in the discharge or any new lumps or breast concerns. Regarding her breast pain, she is advised to completely decaffeinate her diet and have a proper brafitting. If the pain becomes severe or persistent, she may try Evening Pandora Oil 1000mg twice daily for 3-4 months. She was given a breast pain informational handout. Genetics referral made: No: Reason: n/a Chemoprevention discussion: N/A The patient is advised to exercise regularly, achieve/maintain ideal body weight, and to limit alcohol consumption to less than 7 drinks weekly for breast cancer risk reduction and overall health. Her imaging will be formally over-read by [facility] breast radiology team. Based on [...] which included preparing to see the patient, vhil-oh-hvlp patient care, completing clinical documentation, obtaining and/or [...] encounter. Phone: N/A Fax: Keli Strickland NP [address] [place] [phone] documented in this encounter[facility] Miscellaneous Notes* Telephone Encounter - Jenny Peters MA - 07/30/2023 10:52 AM EDT Spoke with patient she is coming in because she states that she had a biopsy 06/2023 and was told itwas fibroadenoma. Patient states that she feels like her provider is not giving her all the information and would like a second opinion. She was seen at [facility] in [place] I will reach out to them to retrieve any information and imaging needed for her appointment 08/07/23 with Franchesca FINNEGAN in the Breast Center [facility] contact number is [phone]. Jenny Peters MA documented in this encounterOhio[facility]04-05-2024 Miscellaneous Notes* Telephone Encounter - Jenny Peters MA - 07/25/2023 12:58 PM EDT Called patient to discuss her upcoming appointment with Franchesca Man in the breast center. I left a message asking patient to call me back @[phone]. Jenny Peters MA documented in this encounterOhiohealth [facility]01-17-2024 Evaluation note* Encounter Date Diagnosis Assessment Notes Treatment Notes Treatment Clinical Notes Apr, Anxiety (ICD-10 - F41.9) [facility] Other 10-26-2023 Evaluation note* Encounter Date Diagnosis Assessment Notes Treatment Notes Treatment Clinical Notes Jan, Anxiety (ICD-10 - F41.9) [facility] Other 10-11-2023 Evaluation note* Encounter Date Diagnosis Assessment Notes Treatment Notes Treatment Clinical Notes Jan, BMI 37.0-37.9, adult (ICD-10 - Z68.37) [facility] - eRX sent. We did discuss that she needs to do a better job with the monitoring of her diet. If her weight loss does not improve, we must consider withholding medication. She voices agreement and understanding. [facility] Other 10-03-2023 Evaluation note* Encounter Date Diagnosis Assessment Notes Treatment Notes Treatment Clinical Notes Jan, Anxiety (ICD-10 - F41.9) [facility] Other 09-01-2023 Evaluation note* Encounter Date Diagnosis Assessment Notes Treatment Notes Treatment Clinical Notes Dec, Anxiety (ICD-10 - F41.9) [facility] Other 08-24-2023 Evaluation note* Encounter Date Diagnosis Assessment Notes Treatment Notes Treatment Clinical Notes Nov, BMI 37.0-37.9, adult (ICD-10 - Z68.37) [employer] [facility] -E Rx sent. No other change today. We will recheck in 1 month. [facility] Other 08-05-2023 Hospital Discharge instructions Patient Education [...] Follow these instructions at home: Medicines Take cqdk-cfw-mngluix and prescription medicines only as told by your health care provider. Ask your health care provider if the medicine prescribed to you: ?Requires you to avoid driving or using machinery. ?Can cause constipation. You may need to take these actions to prevent or treat constipation: ?Drink enough fluid to keep your urine pale yellow. ?Take oecp-cur-cdtyuru or prescription medicines. ?Eat foods that are [...] is important. Where to find more information [employer]: www.acog.org Office [...] provider. Document Revised: 11/08/2020 Document Reviewed: 11/08/2020 [employer] Patient Education 2022 InComm. 11/23/2022 01:20:40 Laparoscopic Lysis of Abdominal Adhesions [...] including vitamins, herbs, eye drops, creams, and urzy-trs-bbgfkza medicines. Any problems you or family members [...] provider tells you to take them. Taking hdnt-poi-sllfytp medicines, vitamins, herbs, and supplements. General instructions [...] provider. Document Revised: 12/15/2020 Document Reviewed: 12/15/2020 Elsevier Patient Education 2022 InComm. 11/23/2022 01:20:40 Adhesions, Rwkr-fk-Lexj Adhesions Adhesions are strings of tissue that [...] needed. Follow these instructions at home: Take dtzl-emn-zjqkldz and prescription medicines only as told by [...] Treatment may include medicines and surgery. Take jdrv-esx-mhqcbim and prescription medicines only as told by your doctor. This information is not intended to replace advice given to you by your health care provider. Make sure you discuss any questions you have with your health care provider. Document Revised: 12/15/2020 Document Reviewed: 12/15/2020 [employer] Patient Education 2022 InComm. 11/23/2022 01:20:40 Abdominal Pain, Adult, Mjqg-bw-Emic Abdominal Pain, Adult Many things can cause belly (abdominal) pain. Most times, belly pain is not dangerous. Many cases of belly pain can be watched and treated at home. Sometimes, though, belly pain is serious. Your doctor will try to find the cause of your belly pain. Follow these instructions at home: Medicines Take rpoe-iuo-rzrosmb and prescription medicines only as told by [...] your belly pain for any changes. Take wrjg-ocx-uiqujse and prescription medicines only as told by [...] provider. Document Revised: 08/16/2019 Document Reviewed: 08/16/2019 [employer] Patient Education 2022 SomnoMed Follow Up Care 11/22/2022 19:01:50 With:MARIO GLASGOW Address: [facility] [address] [address] Business (1) When:11/26/2022 [facility]07-27[facility] Evaluation note* Encounter Date Diagnosis Assessment Notes Treatment Notes Treatment Clinical Notes Oct, BMI 37.0-37.9, adult (ICD-10 - Z68.37) [facility] [employer] - eRX sent. Call with any concerns. [facility] Other 06-27-2023 Evaluation note* Encounter Date Diagnosis [...] We will see patient back for follow-up. [facility] Other 05-30-2023 Evaluation note* Encounter Date Diagnosis Assessment Notes Treatment Notes Treatment Clinical Notes August, BMI 39.0-39.9,adult (ICD-10 - Z68.39) [facility] - eRX sent. Call with any concern. [employer] Other 05-30-2023 Evaluation note* Encounter Date Diagnosis Assessment Notes Treatment Notes Treatment Clinical Notes August, BMI 39.0-39.9,adult (ICD-10 - Z68.39) [facility] Other 12-28-2022 Evaluation note* Encounter Date Diagnosis [...] year, with out any concerns with anesthesia. [facility] Other 09-06-2022 Evaluation note* Encounter Date Diagnosis Assessment Notes Treatment Notes Treatment Clinical Notes Dec, BMI 36.0-36.9,adult (ICD-10 - Z68.36) [facility] Other 08-24-2022 Evaluation note* Encounter Date Diagnosis [...] third and final prescription of the Adipex. [facility] Other 08-03-2022 Evaluation note* Encounter Date Diagnosis Assessment Notes Treatment Notes Treatment Clinical Notes Nov, BMI 36.0-36.9,adult (ICD-10 - Z68.36) [facility] Other 07-05-2022 Evaluation note* Encounter Date Diagnosis Assessment Notes Treatment Notes Treatment Clinical Notes Oct, Conjunctivitis (ICD9-CM - 372.30) [facility] Other 06-24-2022 Evaluation note* Encounter Date Diagnosis Assessment Notes Treatment Notes Treatment Clinical Notes Sep, BMI 37.0-37.9, adult (ICD-10 - Z68.37) [facility]-E Rx sent. Lengthy discussion regarding side effects as well as possible outcomes of the medication. We will see her back in 1 month. Patient to call with any concerns. [facility] Other 06-24-2022 Evaluation note* Encounter Date Diagnosis Assessment Notes Treatment Notes Treatment Clinical Notes Sep, BMI 37.0-37.9, adult (ICD-10 - Z68.37) [facility] Other 06-13-2022 Evaluation note* Encounter Date Diagnosis Assessment Notes Treatment Notes Treatment Clinical Notes Sep, BMI 38.0-38.9,adult (ICD-10 - Z68.38) [facility] Other 06-09-2022 Evaluation note* Encounter Date Diagnosis [...] psychiatric diagnoses/as well as her seizure concerns. [facility] Other 04-27-2022 Hospital Discharge instructions Patient Education [...] fried and sweet foods. General instructions Take fscp-ajm-tspuxut and prescription medicines only as told by [...] 02/01/2010 Document Revised: 07/29/2019 Document Reviewed: 04/23/2018 [employer] Patient Education 2020 InComm. [facility] 02-09-2022 Evaluation note* Encounter Date [...] 2mg at that time of refill need. [facility] Other 01-18-2022 Evaluation note* Encounter Date Diagnosis Assessment Notes Treatment Notes Treatment Clinical Notes Apr, Dysuria (ICD-10 - R30.0) [facility] Other 01-12-2022 Evaluation note* Encounter Date Diagnosis [...] next week. She voices agreement and understanding. [employer] Other 11-17-2021 NoteHNO ID: [id number] Author: Rosalie Haile MD Service: ? Author Type: Physician Type: Progress Notes Filed: 03/08/2021 8:38 PM Note Text: [facility] - General Progress Note SULLY ENRIQUEZ Alyse : 1990 AGE: 31 SEX: F CSN: [id number] [facility]: [facility] LOCATION: [facility] ATTENDING PHYSICIAN: Rosalie Haile M.D. DATE [...] follow up. Rosalie Haile M.D. Internal Medicine ESPINOZA:[id number] NoteHNO ID: [id number] Author: Saravanan Yancey MD Service: Neurology General [...] Will await MRI results. Saravanan Yancey MD [facility] Neurology Resident, PGY-4 March 07, 2021[facility] [id number] NoteHNO ID: [id number] Author: JULITO Lino Service: Care Management Author Type: Cnc Maintenance Technician Type: Care Mgt Initial Assessment Filed: 03/06/2021 4:04 PM Note Text: CARE MANAGEMENT: ASSESSMENT AND DISCHARGE PLAN SERVICE DATE: March 06, 2021 SERVICE TIME: 4:00 PM PRIMARY CARE PHYSICIAN: Keli Strickland NP ADMISSION STATUS: Inpatient Needs Prior to Discharge: None MEDICAL: [employer] MEDICA[employer] Patient/Workers Compensation Coordinator Stated Goals: To have reduction in symptoms;To return home to life as it was Health Insurance: [facility] Health Issues Impacting Discharge Plan: (seizure, headache, CP) Last Discharge Date: N/A Is this Within the Past 30 days? Last discharge within 30 days: No Advance Directive: Current Advance Directive: None Armored Car Messenger Attempted to Assist with AD Completion: Yes [...] None Has the Patient Been in a Penitentiary Facility in the Past 30 days?: No SOCIAL: Living Arrangements: Home Lives With: Partner;Daughter;Son Financial Resources: Employed Primary Contact: Extended Emergency Contact Information Primary Emergency Contact: angelika strong Address: [address] [place] [address] [facility] Mobile Relation: Significant other Secondary Emergency Contact: [...] Completely I feel financially burdened by my mpm-fu-odbiga expenses for my prescription medication:: 0 - Disagree Completely Risk Score: 0 Patient is categorized as: Low risk < 2 Are you interested in bedside delivery of your medications? No Is Patient Psychosocially Complex?: No ASSESSMENT AND PLAN: Medical Needs: Medical Needs: None Psychosocial Needs: Psychosocial Needs: Mental Health Diagnosis Mental Health Information: Coversion d/o, anxiety FREEDOM OF CHOICE EXPLAINED: [place] of Choice Given: No Reason Not Given: No placements necessary POTENTIAL TRANSITION PLANS Home Pt presents to ED s/p seizer, headache, CP, Hx diabetes (pt adamant she does not have DM), anxiety, epilepsy, conversion disorder. Independent of ADLS and iADLS, [facility] fito Kauffman, 13 y/o dtr and 10 y/o son. Pt reports she is employed and drives. Does not utilize any DME, snf or community resources. No skilled needs identified at this time. DC transportation will be provided by Angelika [phone]. SIGNATURE: JULITO Lino PATIENT NAME: Sully Enriquez DATE: March 06, 2021 TIME: 4:00 PM PAGER/CONTACT #: [phone] HospitalEvaluation + Plan note No data available for this section [facility] evaluation noteNo InformationNort Measy Other Evaluation noteNo assessment information available [facility] Work Phone: evaluation note* Diagnosis Disorder of breast- Primary Unspecified breast disorder [facility] Diagnosis Mastodynia- Primary Fibrocystic breast changes of both breasts Family history of breast cancer Family history of malignant neoplasm of breast Dense breasts Inconclusive mammogram Nipple discharge Other sign and symptom in breast [facility]* Diagnosis Disorder of breast Unspecified breast disorder Fibrocystic breast changes of both breasts Family history of breast cancer Family history of malignant neoplasm of breast Mastodynia documented [facility]* Diagnosis Onset Date Resolution Status Fatigue noneactive BMI 39.0-39.9,adult noneacti ve [facility] Work Phone: Evaluation note* Diagnosis Fibrocystic breast changes of both breasts Family history of breast cancer Family history of malignant neoplasm of breast Mastodynia Dense breasts Inconclusive mammogram Nipple discharge Other sign and symptom in breast Mass of right breast, unspecified quadrant [facility]* Diagnosis Breast fibroadenoma, right- Primary Fibrocystic breast changes of both breasts Mastodynia Dense breasts Inconclusive mammogram [facility]* Diagnosis Onset Date Resolution Status Fatigue noneactive BMI 39.0-39.9,adult noneacti ve BMI 39.0-39.9,adult noneacti ve [facility] Work Phone: Evaluation note* Diagnosis Onset Date Resolution Status Fatigue noneactive BMI 39.0-39.9,adult noneacti ve BMI 39.0-39.9,adult noneacti ve BMI 38.0-38.9,adult noneacti ve [facility] Work Phone: Evaluation note* Diagnosis Onset Date Resolution Status BMI 39.0-39.9,adult noneacti ve BMI 38.0-38.9,adult noneacti ve Lump of right breast acute UTI (urinary tract infection) acute BMI 38.0-38.9,adult noneacti ve [facility] Work Phone: Evaluation note* Diagnosis Breast fibroadenoma, right- Primary Preop testing Preoperative examination, unspecified Breast fibroadenoma, right [facility] [place] [facility]* Diagnosis Breast fibroadenoma, right- Primary Breast fibroadenoma, right documented [facility] this encounter [facility] [place] [facility]* Diagnosis Pre-op evaluation- Primary Preoperative examination, [...] PRN Saw neurology documented [facility]* Diagnosis Pre-op evaluation- Primary Preoperative examination, unspecified Seizure (HCC) Other convulsions Difficult intravenous access Other specified conditions influencing health status Obesity (BMI 30-39.9) Obesity, unspecified POTS (postural orthostatic tachycardia syndrome) Tachycardia, unspecified Rash Rash and other nonspecific skin eruption Breast fibroadenoma, right documented [facility] encounter [facility]* Diagnosis Pre-op evaluation- Primary Preoperative examination, unspecified Seizure (HCC) Other convulsions Difficult intravenous access Other specified conditions influencing health status Obesity (BMI 30-39.9) Obesity, unspecified POTS (postural orthostatic tachycardia syndrome) Tachycardia, unspecified Rash Rash and other nonspecific skin eruption Breast fibroadenoma, right- Primary Fibrocystic breast changes of both breasts Post-operative state Other postprocedural status documented in this encounter [facility] [place] [facility]* Diagnosis Pre-op evaluation- Primary Preoperative examination, [...] symptom in breast [facility] [place] [facility]* Diagnosis Pre-op evaluation- Primary Preoperative examination, unspecified Seizure (HCC) Other convulsions Difficult intravenous access Other specified conditions influencing health status Obesity (BMI 30-39.9) Obesity, unspecified POTS (postural orthostatic tachycardia syndrome) Tachycardia, unspecified Rash Rash and other nonspecific skin eruption Mass of right breast, unspecified quadrant Nipple discharge Other sign and symptom in breast documented in [facility] [place] [facility]* Diagnosis Pre-op evaluation- Primary Preoperative examination, unspecified Seizure (HCC) Other convulsions Difficult intravenous access Other specified conditions influencing health status Obesity (BMI 30-39.9) Obesity, unspecified POTS (postural orthostatic tachycardia syndrome) Tachycardia, unspecified Rash Rash and other nonspecific skin eruption Discharge from right nipple- Primary Obesity, Class II, BMI 35-39.9 Obesity, unspecified [facility]* Diagnosis Onset Date Resolution Status Lump of right breast acute UTI (urinary tract infection) acute BMI 38.0-38.9,adult noneacti ve Sinusitis noneactive [facility] Work Phone: Evaluation note* Diagnosis Pre-op [...] symptom in breast [facility]* Diagnosis Pre-op evaluation- Primary Preoperative examination, [...] symptom in breast documented in [facility] encounter [facility] [place] [facility]* Diagnosis Alteration of awareness Psychogenic nonepileptic seizure (CMS/HCC) Paresthesia Disturbance of skin sensation [facility] [place] [facility]* Diagnosis Right arm pain- Primary Pain in limb Seizure-like activity (HCC) Other convulsions [facility] [place] [facility]* Diagnosis Pre-op evaluation- Primary Preoperative examination, unspecified Seizure (HCC) Other convulsions Difficult intravenous access Other specified conditions influencing health status Obesity (BMI 30-39.9) Obesity, unspecified POTS (postural orthostatic tachycardia syndrome) Tachycardia, unspecified Rash Rash and other nonspecific skin eruption Nipple discharge Other sign and symptom in breast [facility]* Diagnosis Bloody discharge from right nipple- Primary [facility] Diagnosis Pre-op evaluation- Primary Preoperative examination, unspecified Seizure (HCC) Other convulsions Difficult intravenous access Other specified conditions influencing health status Obesity (BMI 30-39.9) Obesity, unspecified POTS (postural orthostatic tachycardia syndrome) Tachycardia, unspecified Rash Rash and other nonspecific skin eruption Family history of breast cancer Family history of malignant neoplasm of breast documented in [facility] encounter [facility] [place] [facility]* Diagnosis Breast pain- Primary Mastodynia Mood changes Unspecified episodic mood disorder Hot flashes Low libido [facility] [place] [facility]* Diagnosis Pre-op evaluation- Primary Preoperative examination, [...] of both breasts [facility]* Diagnosis Pre-op evaluation- Primary Preoperative examination, [...] of both breasts [facility]* Diagnosis Pre-op evaluation- Primary Preoperative examination, unspecified Seizure (HCC) Other convulsions Difficult intravenous access Other specified conditions influencing health status Obesity (BMI 30-39.9) Obesity, unspecified POTS (postural orthostatic tachycardia syndrome) Tachycardia, unspecified Rash Rash and other nonspecific skin eruption Abnormal finding on breast imaging- Primary Other (abnormal) findings on radiological examination of breast [facility]* Diagnosis Pre-op evaluation- Primary Preoperative examination, unspecified Seizure (HCC) Other convulsions Difficult intravenous access Other specified conditions influencing health status Obesity (BMI 30-39.9) Obesity, unspecified POTS (postural orthostatic tachycardia syndrome) Tachycardia, unspecified Rash Rash and other nonspecific skin eruption Abnormal finding on breast imaging Other (abnormal) findings on radiological examination of breast [facility]* Diagnosis Pre-op evaluation- Primary Preoperative examination, unspecified Seizure (HCC) Other convulsions Difficult intravenous access Other specified conditions influencing health status Obesity (BMI 30-39.9) Obesity, unspecified POTS (postural orthostatic tachycardia syndrome) Tachycardia, unspecified Rash Rash and other nonspecific skin eruption Nipple discharge- Primary Other sign and symptom in breast [facility]* Diagnosis Plantar fasciitis- Primary Plantar fascial fibromatosis Pain of left heel [facility]* Diagnosis Right hip impingement syndrome- Primary Right hip pain Pain in joint, pelvic region and thigh documented in [facility] encounter [facility]* Diagnosis Pre-op evaluation- Primary Preoperative examination, unspecified Seizure (HCC) Other convulsions Difficult intravenous access Other specified conditions influencing health status Obesity (BMI 30-39.9) Obesity, unspecified POTS (postural orthostatic tachycardia syndrome) Tachycardia, unspecified Rash Rash and other nonspecific skin eruption Nipple discharge- Primary Other sign and symptom in breast Mass of right breast, unspecified quadrant documented in this encounter [facility] general Narrative - Reported* Type Description Date [...] dif ferent times Hospitalization History Seizures 02/2021 [facility] Other History general Narrative - Reported* Type [...] dif ferent times Hospitalization History Seizures 02/2021 [facility] Other History general Narrative - ReportedNoFashion Project Other Hisboub general Narrative - Reported* Type Description Date [...] dif ferent times Hospitalization History Seizures 02/2021 [facility] Other Hospital Discharge instructions Additional Instructions DISCHARGE [...] FOLLOW UP -[Please call the office at ([phone]) to make follow appointment before leaving the hospital]. -[2 Weeks] [ ][facility] Work Phone: Hospital Discharge instructions No data available for this section [facility] Hospital Discharge instructions* Attachments The following attachments cannot be sent through Care Everywhere. * Arm Pain (Israeli) * Seizure (Israeli) [facility] Dis[facility] instructionsAmbulatory Orders* Referral to Weight Management Time Frame: 10/18/24, Location: None Selected [facility] Work Phone: Progress note No data available for this section [facility] (n[facility]ative)* Diagnostic Procedure Only (Routine) - Authorized Specialty Diagnoses / Procedures Referred By Nikolas guerrero Referred To Contact [facility] Diagnoses Disorder of breast Procedures [facility]I DIAGNOSTIC BILATERAL DIAGNOSTIC MAMMOGRAPHY COMPUTER-AIDED DETCJ BI Franchesca Man PA-C [employer] [employer] [address] [address] [facility] [address] [place] [address] Referral ID Status Reason Start Date Expiration Date Visits Requested Visits Authorized [id number] Authorized Auto-Generat ed Referral 08/06/2023 09/04/[address] [facility] for referral (narrative)* Diagnostic Procedure Only (Routine) - Closed Specialty Diagnoses / Procedures Referred By Nikolas guerrero Referred To Contact [facility] Diagnoses Fibrocystic breast changes of both breasts Family history of breast cancer Mastodynia Procedures US BREAST LTD RIGHT US BREAST UNI REAL TIME WITH IMAGE LIMITED Franchesca Man PA-C [address] [employer] [address] [address] [facility] [address] [place] [address] Referral ID Status Reason Start Date Expiration Date V isits Requested Visits Authorized [id number] Closed Auto-Generate d Referral 08/07/2023 04/20/[address] [facility] for referral (narrative)* Diagnostic Procedure Only (Routine) - Closed Specialty Diagnoses / Procedures Referred By Nikolas t Referred To Contact BR IMAGING Diagnoses Fibrocystic breast changes of both breasts Family history of breast cancer Mastodynia Dense breasts Nipple discharge Mass of right breast, unspecified quadrant Procedures US BIOPSY BREAST RIGHT BX BREAST W/DEVICE 1ST LESION ULTRASOUND GUID Franchesca Man PA-C [address] [facility] [address] [place] [address] Br Imaging [address] [facility] [place] [address] Referral ID Status Reason Start Date Expiration Date V isits Requested Visits Authorized [id number] Closed Auto-Generate d Referral 08/11/2023 09/09/[address] [facility] for referral (narrative)* Diagnostic Procedure Only (Routine) - New Request Specialty Diagnoses / Procedures Referred By Nikolas t Referred To Contact BR IMAGING Diagnoses Breast fibroadenoma, right Procedures SAJI NDL LOC W SAJI GD RIGHT PERQ DEVICE PLACEMENT BREAST LOC 1ST LES W/GDNCE Jackie Sutton MD [address] [place] [address] Br Imaging [address] [place] [address] Referral ID Status Reason Start Date Expiration Date Visits Requested Visits Authorized [id number] New Request Auto-Generat ed Referral 12/26/2023 01/24/[address] [facility] for referral (narrative)* Diagnostic Procedure Only (Routine) - Closed Specialty Diagnoses / Procedures Referred By Nikolas t Referred To Contact BR IMAGING Diagnoses Mass of right breast, unspecified quadrant Nipple discharge Procedures US BREAST LTD RIGHT US BREAST UNI REAL TIME WITH IMAGE LIMITED Prince Mon PA-C [address] [place] [address] Br Imaging [address] [place] [address] Referral ID Status Reason Start Date Expiration Date V isits Requested Visits Authorized [id number] Closed Auto-Generate d Referral 01/29/2024 02/27/[address] [facility] for referral (narrative)* Diagnostic Procedure Only (Routine) - Closed Specialty Diagnoses / Procedures Referred By Contac t Referred To Contact BR IMAGING Diagnoses Mass of right breast, unspecified quadrant Nipple discharge Procedures US BREAST LTD RIGHT US BREAST UNI REAL TIME WITH IMAGE LIMITED Prince Mon PA-C [address] [place] [address] Br Imaging [address] [place] [address] Referral ID Status Reason Start Date Expiration Date V isits Requested Visits Authorized [id number] Closed Auto-Generate d Referral 03/12/2024 04/20/[address] [facility] for visit Narrative1 month Follow up, ER visit [facility] Other Reason for visit Narrative* Diagnostic Procedure Only (Routine) - Closed Specialty Diagnoses / Procedures Referred By Contac t Referred To Contact BR IMAGING Diagnoses Breast fibroadenoma, right Procedures SAJI NDL LOC W SAJI GD RIGHT PERQ DEVICE PLACEMENT BREAST LOC 1ST LES W/GDTOMÁSE Jackie Sutton MD [address] [place] [address] Br Imaging [address] [place] [address] Referral ID Status Reason Start Date Expiration Date V isits Requested Visits Authorized [id number] Closed Auto-Generate d Referral 12/26/2023 01/24/[address] [facility] for visit Narrative* Diagnostic Procedure Only (Routine) - Closed Specialty Diagnoses / Procedures Referred By Contac t Referred To Contact BR IMAGING Diagnoses Mass of right breast, unspecified quadrant Nipple discharge Procedures US BREAST LTD RIGHT US BREAST UNI REAL TIME WITH IMAGE LIMITED Prince Mon PA-C [address] [place] [address] Br Imaging [address] [place] [phone] Referral ID Status Reason Start Date Expiration Date V isits Requested Visits Authorized [id number] Closed Auto-Generate d Referral 01/29/2024 02/27/2025 1 [facility] Procedure Only (Routine) - Closed Specialty Diagnoses / Procedures Referred By Contac t Referred To Contact BR IMAGING Diagnoses Abnormal finding on breast imaging Procedures US BIOPSY BREAST LEFT BX BREAST W/DEVICE 1ST LESION ULTRASOUND Lea Odell MD [address] [place] [address] Phone: tel: fax: BR IMAGING [address] [place] [address] Referral ID Status Reason Start Date Expiration Date V isits Requested Visits Authorized [id number] Closed Auto-Generate d Referral 07/06/2024 04/20/2025 1 1 [facility] Summary Purpose Family History No Family [...] 2:25pm Numbness and tingling of right arm Aprua 2024 2:25pm Chief Complaint Admit Date adipex [...] 2:25pm Numbness and tingling of right arm Apr 2024 2:25pm Hives May 07, 2024 8 [...] WITHOUT&WITH CONTRAST W/CAD BILATERAL Prince Mon PA-C [address] [place] [address] [place] [address] Referral ID Status Reason Start Date Expiration Date Visits Requested Visits Authorized [id number] New Request Auto-Generat ed Referral 4 04/11/2025 1 1 Specialty Diagnoses / Procedures Referred By Contac t Referred To Contact BR IMAGING Diagnoses Mass of right breast, unspecified quadrant Nipple discharge Procedures US BREAST LTD RIGHT US BREAST UNI REAL TIME WITH IMAGE LIMITED Prince Mon PA-C [address] [place] [id number] Br Imaging [address] [place] [address] Referral ID Status Reason Start Date Expiration Date V isits Requested Visits Authorized [id number] Closed Auto-Generate d Referral 03/12/2024 04/20/2024 1 1 Specialty Diagnoses / Procedures Referred By Contac t Referred To Contact Diagnoses Family history of breast cancer Procedures CONSULT TO MEDICAL GENETICS - CANCER MEDICAL GENETICS COUNSELING EACH 30 MINUTES Prince Mon PA-C [address] [place] [address] [address] Referral ID Status Reason Start Date Expiration Date Visits Requested Visits Authorized [id number] Authorized PCP Requested Referral Auto-Generate d Referral 01/29/2025 1 1 Specialty Diagnoses / Procedures Referred By Contac t Referred To Contact BR IMAGING Diagnoses Mass of right breast, unspecified quadrant Nipple discharge Procedures US BREAST LTD RIGHT US BREAST UNI REAL TIME WITH IMAGE LIMITED Prince Mon PA-C [address] [place] [address] Br Imaging [address] [place] [address] Referral ID Status Reason Start Date Expiration Date V isits Requested Visits Authorized [id number] Closed Auto-Generate d Referral 01/29/2024 02/27/2025 1 1 Specialty Diagnoses / Procedures Referred By Contac t Referred To Contact General Surgery Diagnoses Breast fibroadenoma, right Fibrocystic breast changes of both breasts Mastodynia Dense breasts Procedures CONSULT TO GENERAL SURGERY OFFICE/OUTPATIENT [facility] MDM 60 MINUTES Franchesca Man PA-C [address] [place] [address] Referral ID Status Reason Start Date Expiration Date Visits Requested Visits Authorized [id number] Authorized PCP Requested Referral 09/12/2023 09/11/2024 1 1 Specialty Diagnoses / Procedures Referred By Contac t Referred To Contact Endocrinology Diagnoses Nipple discharge Procedures CONSULT TO ENDOCRINOLOGY OFFICE/OUTPATIENT [facility] MDM 60 MINUTES Franchesca Man PA-C [address] [place] [address] Referral ID Status Reason Start Date Expiration Date Visits Requested Visits Authorized [id number] Authorized PCP Requested Referral 08/07/2023 08/06/2024 1 1 Specialty Diagnoses / Procedures Referred By Nikolas t Referred To Contact BR IMAGING Diagnoses Fibrocystic breast changes of both breasts Family history of breast cancer Mastodynia Procedures US BREAST LTD RIGHT US BREAST UNI REAL TIME WITH IMAGE LIMITED Franchesca Man PA-C [address] [place] [address] Br Imaging [address] [place] [address] Referral ID Status Reason Start Date Expiration Date V isits Requested Visits Authorized [id number] Closed Auto-Generate d Referral 08/07/2023 04/20/2024 1 1 Reason Appt time Consult and treat abdominal pain - [facility] x 2 Diagnosis 1 Abdominal pain (R10. 9) Referral Organization [facility] Referring Provider First Name Mario Referring Provider Last Name Pee Referring Provider Specialty Family Prac cody Referred Organization Unknown Facility Referred Provider Carlos Haq Referred Provider Specialty Surgery Referral Priority Routine General Notes Renetta Damico 2022 08:55:03 AM > Carlos Haq DO, phone [phone]. [facility] recommended Additional Source Comments INFORMATION SOURCE (unrecogn ized section and content) DATE CREATED AUTHOR 03/11/2021 [facility] DATE CREATED AUTHOR AUTHOR'S ORGANIZ ATION 08/15/2022 [facility] DATE CREATED AUTHOR AUTHOR'S ORGANIZ ATION 02/15/2023 [facility] DATE CREATED AUTHOR AUTHOR'S ORGANIZ ATION 12/27/2023 [facility] DATE CREATED AUTHOR AUTHOR'S ORGANIZ ATION 2024 [facility] DATE CREATED AUTHOR AUTHOR'S ORGANIZ ATION 05/19/2024 [facility] DATE CREATED AUTHOR AUTHOR'S ORGANIZ ATION 07/11/2024 [facility] DATE CREATED AUTHOR AUTHOR'S ORGANIZ ATION 09/29/2024 [facility] DATE CREATED AUTHOR AUTHOR'S ORGANIZ ATION 01/04/2025 [facility] REASON FOR VISIT (unrecogniz ed section and content) Reason Comments New Patient Pain in both breast, enlarged lymph node in Rt armpit. Establish care Reason Comments Radiology Mammogram Specialty Diagnoses / Procedures Referred By Nikolas t Referred To Contact BR IMAGING Diagnoses Disorder of breast Procedures SAJI DIAGNOSTIC BILATERAL DIAGNOSTIC MAMMOGRAPHY COMPUTER-AIDED DETCJ BI Franchesca Man PA-C [address] [employer] [address] [address] Br Imaging [address] [place] [address] Referral ID Status Reason Start Date Expiration Date V isits Requested Visits Authorized [id number] Closed Auto-Generate d Referral 08/06/2023 09/04/2024 1 [...] 1ST LESION ULTRASOUND GUID Franchesca Man PA-C [address] [employer] [address] [address] Br Imaging [address] [place] [address] Referral ID Status Reason Start Date Expiration Date V isits Requested Visits Authorized [id number] Closed Auto-Generate d Referral 08/11/2023 09/09/2024 1 1 Reason Comments Results Reason Comments New Patient Specialty Diagnoses / Procedures Referred By Contac t Referred To Contact General Surgery Diagnoses Breast fibroadenoma, right Fibrocystic breast changes of both breasts Mastodynia Dense breasts Procedures CONSULT TO GENERAL SURGERY OFFICE/OUTPATIENT [facility] MDM 60 MINUTES Franchesca Man PA-C [address] [facility] [address] [place] [address] Referral ID Status Reason Start Date Expiration Date V isits Requested Visits Authorized [id number] Closed PCP Requested Referral 09/12/2023 09/11/2024 1 [...] DIAGNOSTIC BILATERAL DIAGNOSTIC MAMMOGRAPHY COMPUTER-AIDED DETCJ BI Prince Mon PA-C [address] [place] [address] Br Imaging [address] [place] [address] Referral ID Status Reason Start Date Expiration Date V isits Requested Visits Authorized [id number] Closed Auto-Generate d Referral 01/29/2024 02/27/2025 1 1 Reason Comments Spasms Numbness Specialty Diagnoses / Procedures Referred By Nikolas t Referred To Contact Neurology Diagnoses Unspecified convulsions (CMS/HCC) Other symptoms and signs involving the musculoskeletal system Anesthesia of skin Muscle spasm of back 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) Procedures NE OFFICE/OUTPATIENT [facility] MDM 30 MINUTES Mario Glasgow MD [address] [place] [address] Phone: tel: fax: Moses Crowder, [address] [place] [address] Phone: tel: fax: Referral ID Status Reason Start Date Expiration Date V isits Requested Visits Authorized [id number] Closed Consult and Treat 04/28/2024 10/25/2024 1 1 Reason Comments Headache Arm pain Arm Pain Eye Problem Reason Comments Radiology MRI Specialty Diagnoses / Procedures Referred By Nikolas t Referred To Contact MR IMAGING Diagnoses Nipple discharge Procedures MRI BREAST WO/W IVCON BILATERAL MRI BREAST WITHOUT&WITH CONTRAST W/CAD BILATERAL Prince Mon PA-C [address] [place] [address] Mr Imaging [place] [address] Referral ID Status Reason Start Date Expiration Date V isits Requested Visits Authorized [id number] Closed Auto-Generate d Referral 05/18/2024 07/17/2024 1 1 Reason Comments bloody nipple discharge Breast MRI done Reason Comments Family History Of Cancer Specialty Diagnoses / Procedures Referred By Nikolas guerrero Referred To Contact Diagnoses Family history of breast cancer Procedures CONSULT TO MEDICAL GENETICS - CANCER MEDICAL GENETICS COUNSELING EACH 30 MINUTES Prince Mon PA-C [address] [place] [address] Phone: tel: fax: [facility] [address] [place] [address] Referral ID Status Reason Start Date Expiration Date V isits Requested Visits Authorized [id number] Closed PCP Requested Referral Auto-Generated Referral 01/30/2024 01/29/2025 1 1 Reason Comments Breast Problem Had abnormal mammogr am 06/2023, consulted with Dr. Belle. Had 2nd opinion at [facility] and was advised possible hormone cause. New bloody discharge earlier this month, had appt with Dr. Belle. Had televisit with genetic counselor 05/29/24. Has had piercings in for 15 years, did not remove. Menopause [facility] 05/02/2022.Think s nick-menopause. C/o mood swings, night [...] DIGITAL BREAST TOMOSYNTHESIS BILATERAL Prince Mon PA-C [address] [place] [address] Phone: tel: fax: BR IMAGING [facility] [place] [address] Referral ID Status Reason Start Date Expiration Date V isits Requested Visits Authorized [id number] Closed Auto-Generate d Referral 06/25/2024 07/25/2025 1 1 Reason Comments Patient Question Reason Comments Pain Reason Onset Date Comments MRI 09/30/2024 Reason Comments Appointment Care Teams (unrecognized sec tion and content) [...] Team Status: Inactive Member Role Status Dates Mraio Glasgow DO Primary Care Provid er, Attending Provider Active Start: October 08, 2023 End: October 08, 2023 Team Status: Inactive Member Role Status Dates Mario Glasgow DO Primary Care Provid er, Attending Provider Active Start: November 12, 2023 End: November 12, 2023 Team Status: Active Member Role Status Dates Mario Glasgow , Primary Care Provid er, Attending Provider Active Start: July 25, 2023 Team Status: Active Member Role Status Dates Mario Glasgow , Primary Care Provider Active Start: August 13, [...] Glasgow , DO Primary Care Provider Active Jen Garcia , DO Attending Provider Active Team Status: Inactive Member Role Status Dates Jen Garcia , DO Attending Provider Active [...] Provider Active St art: July 07, 2023 Slasher Tender Helper Relationship Specialty Start Date End Date Keli Strickland NP [address] [place] [address] [place] [phone] PCP - General Family Medicine 10/19/16 Erin Chavez MD [address] [place] [address] Urology 01/01/23 Slasher Tender Helper Relationship Specialty Start Date End Date Keli Strickland NP [address] [place] [place] [address] PCP - General Family Medicine 10/19/16 Erin Chavez MD [address] [place] [address] Urology 01/01/23 Slasher Tender Helper Relationship Specialty Start Date End Date Keli Strickland NP [address] [place] [address] [place] [address] PCP - General Family Medicine 10/19/16 Erin Chavez MD [address] [place] [address] Urology 01/01/23 Slasher Tender Helper Relationship Specialty Start Date End Date Keli Strickland NP [address] [place] [address] [place] [address] PCP - General Family Medicine 10/19/16 Erin Chavez MD [address] [place] [address] Urology 01/01/23 Slasher Tender Helper Relationship Specialty Start Date End Date Keli Strickland NP [address] [place] [address] [place] [address] PCP - General Family Medicine 10/19/16 Erin Chavez MD [address] [place] [address] Urology 01/01/23 Slasher Tender Helper Relationship Specialty Start Date End Date Keli Strickland NP [address] [place] [address] [place] [address] PCP - General Family Medicine 10/19/16 Erin Chavez MD [address] [place] [address] Urology 01/01/23 Slasher Tender Helper Relationship Specialty Start Date End Date Keli Strickland NP [address] [place] [address] [place] [address] PCP - General Family Medicine 10/19/16 Erin Chavez MD [address] [place] [address] Urology 01/01/23 Slasher Tender Helper Relationship Specialty Start Date End Date Keli Strickland NP [address] [place] [address] [place] [address] PCP - General Family Medicine 10/19/16 Erin Chavez MD [address] [place] [address] Urology 01/01/23 Slasher Tender Helper Relationship Specialty Start Date End Date Keli Strickland NP [address] [place] [address] [place] [address] PCP - General Family Medicine 10/19/16 Erin Chavez MD [address] [place] [address] Urology 01/01/23 Slasher Tender Helper Relationship Specialty Start Date End Date Keli Strickland NP [address] [facility] [place] [address] PCP - General Family Medicine 10/19/16 Erin Chavez MD [address] [place] [address] Urology 01/01/23 Slasher Tender Helper Relationship Specialty Start Date End Date Keli Strickland NP [address] [place] [address] [place] [address] PCP - General Family Medicine 10/19/16 Erin Chavez MD [address] ROSASCRIST[place] [address] Urology 01/01/23 Slasher Tender Helper Relationship Specialty Start Date End Date Mario Glasgow DO [address] [address] PCP - General Family Medicine 12/30/23 Erin Chavez MD [address] [place] [address] Urology 01/01/23 Slasher Tender Helper Relationship Specialty Start Date End Date Mario Glasgow DO [address] [place] [address] PCP - General Family Medicine 12/30/23 Erin Chavez MD [address] [place] [address] Urology 01/01/23 Slasher Tender Helper Relationship Specialty Start Date End Date Mario Glasgow DO [address] [place] [address] PCP - General Family Medicine 12/30/23 Erin Chavez MD [address] [place] [address] Urology 01/01/23 Slasher Tender Helper Relationship Specialty Start Date End Date Mario Glasgow DO [address] [place] [address] PCP - General Family Medicine 12/30/23 Erin Chavez MD [address] [place] [address] Urology 01/01/23 Slasher Tender Helper Relationship Specialty Start Date End Date Mario Glasgow DO [address] [address] PCP - General Family Medicine 12/30/23 Erin Chavez MD [address] [place] [address] Urology 01/01/23 Slasher Tender Helper Relationship Specialty Start Date End Date Mario Glasgow DO [address] [address] PCP - General Family Medicine 12/30/23 Erin Chavez MD [address] [place] [address] Urology 01/01/23 Slasher Tender Helper Relationship Specialty Start Date End Date Mario Glasgow DO [address] [address] PCP - General Family Medicine 12/30/23 Erin Chavez MD [address] [place] [address] Urology 01/01/23 Slasher Tender Helper Relationship Specialty Start Date End Date Mario Glasgow DO [address] [place] [address] PCP - General Family Medicine 12/30/23 Erin Chavez MD [address] [place] [address] Urology 01/01/23 Slasher Tender Helper Relationship Specialty Start Date End Date Mario Glasgow DO [address] [address] PCP - General Family Medicine 12/30/23 Erin Chavez MD [address] [place] [address] Urology 01/01/23 Slasher Tender Helper Relationship Specialty Start Date End Date Mario Glasgow DO [address] [address] PCP - General Family Medicine 12/30/23 Erin Chavez MD [address] [place] [address] Urology 01/01/23 Slasher Tender Helper Relationship Specialty Start Date End Date Mario Glasgow DO [address] [address] PCP - General Family Medicine 12/30/23 Erin Chavez MD [address] [place] [address] Urology 01/01/23 Slasher Tender Helper Relationship Specialty Start Date End Date Mario Glasgow DO [address] [address] PCP - General Family Medicine 12/30/23 Erin Chavez MD [address] [place] [address] Urology 01/01/23 Slasher Tender Helper Relationship Specialty Start Date End Date Mario Glasgow DO [address] [facility] [place] [address] PCP - General Family Medicine 12/30/23 Erin Chavez MD [address] [place] [address] Urology 01/01/23 Team Status: Inactive Member Role Status Dates Mario Glasgow DO Primary Care Provid er, Attending Provider Active Start: May 07, 2024 End: May 07, 2024 Slasher Tender Helper Relationship Specialty Start Date End Date Mario Glasgow MD [address] [phone] PCP - General Family Medicine 06/17/23 Jen Garcia DO [address] [facility] [address] [place] [address] Referring Physician Obstetrics and Gynecology 06/17/23 Slasher Tender Helper Relationship Specialty Start Date End Date Brandon Alan MD PCP - General 11/06/14 Slasher Tender Helper Relationship Specialty Start Date End Date Mario Glasgow DO [address] [address] PCP - General Family Medicine 12/30/23 Erin Chavez MD [address] [place] [address] Urology 01/01/23 Slasher Tender Helper Relationship Specialty Start Date End Date Mario Glasgow MD 348 [facility] 2 [place] [address] PCP - General Family Medicine 06/17/23 Jen Garcia, DO [address] [facility] [address] [place] [address] Referring Physician Obstetrics and Gynecology 06/17/23 Slasher Tender Helper Relationship Specialty Start Date End Date Mario Glasgow DO [address] [address] PCP - General Family Medicine 12/30/23 Erin Chavez MD [address] [place] [address] Urology 01/01/23 Slasher Tender Helper Relationship Specialty Start Date End Date Mario Glasgow MD [address] [address] PCP - General Family Medicine 06/17/23 Jen Garcia, DO [address] [facility] [address] [place] [address] Referring Physician Obstetrics and Gynecology 06/17/23 Slasher Tender Helper Relationship Specialty Start Date End Date Mario Glasgow DO [address] [address] PCP - General Family Medicine 12/30/23 Erin Chavez MD [address] [place] [address] Urology 01/01/23 Slasher Tender Helper Relationship Specialty Start Date End Date Mario Glasgow DO [address] [address] PCP - General Family Medicine 12/30/23 Erin Chavez MD [address] [place] [address] Urology 01/01/23 Slasher Tender Helper Relationship Specialty Start Date End Date Mario Glasgow DO [address] [place] [address] PCP - General Family Medicine 12/30/23 Erin Chavez MD [address] [place] [address] Urology 01/01/23 Slasher Tender Helper Relationship Specialty Start Date End Date Mario Glasgow DO [address] [place] [address] PCP - General Family Medicine 12/30/23 Erin Chavez MD [address] [place] [address] Urology 01/01/23 Slasher Tender Helper Relationship Specialty Start Date End Date Mario Glasgow DO [address] [place] [address] PCP - General Family Medicine 12/30/23 Erin Chavez MD [address] [place] [address] Urology 01/01/23 Slasher Tender Helper Relationship Specialty Start Date End Date Mario Glasgow DO [address] [place] [address] PCP - General Family Medicine 12/30/23 Erin Chavez MD [address] [facility] [place] [address] Urology 01/01/23 Team Status: Active Member Role Status Dates Mario Glasgow DO Primary Care Provider Active Start: May 19, 2024 Thania Caballero Attending Provider Active Start : May 19, 2024 Team Status: Inactive Member Role Status Dates Mario Glasgow DO Primary Care Provid er, Attending Provider Active Start: July 26, 2024 End: July 26, 2024 Slasher Tender Helper Relationship Specialty Start Date End Date Mario Glasgow MD PCP - General Family Medicine 06/17/23 Jen Garcia DO [address] [facility] [address] [place] [address] Referring Physician Obstetrics and Gynecology 06/17/23 Slasher Tender Helper Relationship Specialty Start Date End Date Mario Glasgow MD PCP - General Family Medicine 06/17/23 Jen Garcia DO [address] [facility] [address] [place] [address] Referring Physician Obstetrics and Gynecology 06/17/23 Slasher Tender Helper Relationship Specialty Start Date End Date Mario Glasgow MD PCP - General Family Medicine 06/17/23 Slasher Tender Helper Relationship Specialty Start Date End Date Mario Glasgow MD PCP - General Family Medicine 06/17/23 Slasher Tender Helper Relationship Specialty Start Date End Date Mario Glasgow MD [address] [id number] PCP - General Family Medicine 09/24/24 Team Status: Inactive Member Role Status Dates Mario Glasgow DO Primary Care Provider Active Start: July 26, 2024 End: July 26, 2024 Mario Glasgow , Attending Provider Active S tart: July 26, [...] October 18, 2024 End: October 18, 2024 Slasher Tender Helper Relationship Specialty Start Date End Date Mario Glasgow DO [address] [address] PCP - General Family Medicine 12/30/23 Erin Chavez MD [address] [address] Urology 01/01/23 Goals (unrecognized section and content) Goals may be documented in a n alternate section Source Comments (unrecognize d section and content) In the event this informatio n is protected by the Federal Confidentiality of Alcohol and Drug Abuse Patient Records regulations: The Federal rules restrict any use of the information to criminally investigate or prosecute any alcohol or drug abuse patient.[facility] the event this information is protected by the Federal Confidentiality of Alcohol and Drug Abuse Patient Records regulations: The Federal rules restrict any use of the information to criminally investigate or prosecute any alcohol or drug abuse patient.[facility] HospitalIn the event this information is protected by the Federal Confidentiality of Alcohol and Drug Abuse Patient Records regulations: The Federal rules restrict any use of the information to criminally investigate or prosecute any alcohol or drug abuse patient.[facility] HospitalIn the event this information is protected by the Federal Confidentiality of Alcohol and Drug Abuse Patient Records regulations: The Federal rules restrict any use of the information to criminally investigate or prosecute any alcohol or drug abuse patient.[facility] HospitalIn the event this information is protected by the Federal Confidentiality of Alcohol and Drug Abuse Patient Records regulations: The Federal rules restrict any use of the information to criminally investigate or prosecute any alcohol or drug abuse patient.[facility] HospitalIn the event this information is protected by the Federal Confidentiality of Alcohol and Drug Abuse Patient Records regulations: The Federal rules restrict any use of the information to criminally investigate or prosecute any alcohol or drug abuse patient.[facility] HospitalIn the event this information is protected by the Federal Confidentiality of Alcohol and Drug Abuse Patient Records regulations: The Federal rules restrict any use of the information to criminally investigate or prosecute any alcohol or drug abuse patient.[facility] HospitalIn the event this information is protected by the Federal Confidentiality of Alcohol and Drug Abuse Patient Records regulations: The Federal rules restrict any use of the information to criminally investigate or prosecute any alcohol or drug abuse patient.[facility] HospitalIn the event this information is protected by the Federal Confidentiality of Alcohol and Drug Abuse Patient Records regulations: The Federal rules restrict any use of the information to criminally investigate or prosecute any alcohol or drug abuse patient.[facility] HospitalIn the event this information is protected by the Federal Confidentiality of Alcohol and Drug Abuse Patient Records regulations: The Federal rules restrict any use of the information to criminally investigate or prosecute any alcohol or drug abuse patient.[facility] HospitalIn the event this information is protected by the Federal Confidentiality of Alcohol and Drug Abuse Patient Records regulations: The Federal rules restrict any use of the information to criminally investigate or prosecute any alcohol or drug abuse patient.[facility] HospitalIn the event this information is protected by the Federal Confidentiality of Alcohol and Drug Abuse Patient Records regulations: The Federal rules restrict any use of the information to criminally investigate or prosecute any alcohol or drug abuse patient.[facility] HospitalIn the event this information is protected by the Federal Confidentiality of Alcohol and Drug Abuse Patient Records regulations: The Federal rules restrict any use of the information to criminally investigate or prosecute any alcohol or drug abuse patient.[facility] HospitalIn the event this information is protected by the Federal Confidentiality of Alcohol and Drug Abuse Patient Records regulations: The Federal rules restrict any use of the information to criminally investigate or prosecute any alcohol or drug abuse patient.[facility] HospitalIn the event this information is protected by the Federal Confidentiality of Alcohol and Drug Abuse Patient Records regulations: The Federal rules restrict any use of the information to criminally investigate or prosecute any alcohol or drug abuse patient.[facility] HospitalIn the event this information is protected by the Federal Confidentiality of Alcohol and Drug Abuse Patient Records regulations: The Federal rules restrict any use of the information to criminally investigate or prosecute any alcohol or drug abuse patient.[facility] HospitalIn the event this information is protected by the Federal Confidentiality of Alcohol and Drug Abuse Patient Records regulations: The Federal rules restrict any use of the information to criminally investigate or prosecute any alcohol or drug abuse patient.[facility] HospitalIn the event this information is protected by the Federal Confidentiality of Alcohol and Drug Abuse Patient Records regulations: The Federal rules restrict any use of the information to criminally investigate or prosecute any alcohol or drug abuse patient.[facility] HospitalIn the event this information is protected by the Federal Confidentiality of Alcohol and Drug Abuse Patient Records regulations: The Federal rules restrict any use of the information to criminally investigate or prosecute any alcohol or drug abuse patient.[facility] HospitalIn the event this information is protected by the Federal Confidentiality of Alcohol and Drug Abuse Patient Records regulations: The Federal rules restrict any use of the information to criminally investigate or prosecute any alcohol or drug abuse patient.[facility] HospitalIn the event this information is protected by the Federal Confidentiality of Alcohol and Drug Abuse Patient Records regulations: The Federal rules restrict any use of the information to criminally investigate or prosecute any alcohol or drug abuse patient.[facility] HospitalIn the event this information is protected by the Federal Confidentiality of Alcohol and Drug Abuse Patient Records regulations: The Federal rules restrict any use of the information to criminally investigate or prosecute any alcohol or drug abuse patient.[facility] HospitalIn the event this information is protected by the Federal Confidentiality of Alcohol and Drug Abuse Patient Records regulations: The Federal rules restrict any use of the information to criminally investigate or prosecute any alcohol or drug abuse patient.[facility] HospitalIn the event this information is protected by the Federal Confidentiality of Alcohol and Drug Abuse Patient Records regulations: The Federal rules restrict any use of the information to criminally investigate or prosecute any alcohol or drug abuse patient.[facility] HospitalIn the event this information is protected by the Federal Confidentiality of Alcohol and Drug Abuse Patient Records regulations: The Federal rules restrict any use of the information to criminally investigate or prosecute any alcohol or drug abuse patient.[facility] HospitalIn the event this information is protected by the Federal Confidentiality of Alcohol and Drug Abuse Patient Records regulations: The Federal rules restrict any use of the information to criminally investigate or prosecute any alcohol or drug abuse patient.[facility] HospitalIn the event this information is protected by the Federal Confidentiality of Alcohol and Drug Abuse Patient Records regulations: The Federal rules restrict any use of the information to criminally investigate or prosecute any alcohol or drug abuse patient.[facility] HospitalIn the event this information is protected by the Federal Confidentiality of Alcohol and Drug Abuse Patient Records regulations: The Federal rules restrict any use of the information to criminally investigate or prosecute any alcohol or drug abuse patient.[facility] HospitalIn the event this information is protected by the Federal Confidentiality of Alcohol and Drug Abuse Patient Records regulations: The Federal rules restrict any use of the information to criminally investigate or prosecute any alcohol or drug abuse patient.[facility] HospitalIn the event this information is protected by the Federal Confidentiality of Alcohol and Drug Abuse Patient Records regulations: The Federal rules restrict any use of the information to criminally investigate or prosecute any alcohol or drug abuse patient.[facility] HospitalIn the event this information is protected by the Federal Confidentiality of Alcohol and Drug Abuse Patient Records regulations: The Federal rules restrict any use of the information to criminally investigate or prosecute any alcohol or drug abuse patient.[facility] HospitalIn the event this information is protected by the Federal Confidentiality of Alcohol and Drug Abuse Patient Records regulations: The Federal rules restrict any use of the information to criminally investigate or prosecute any alcohol or drug abuse patient.[facility] HospitalIn the event this information is protected by the Federal Confidentiality of Alcohol and Drug Abuse Patient Records regulations: The Federal rules restrict any use of the information to criminally investigate or prosecute any alcohol or drug abuse patient.[facility] HospitalIn the event this information is protected by the Federal Confidentiality of Alcohol and Drug Abuse Patient Records regulations: The Federal rules restrict any use of the information to criminally investigate or prosecute any alcohol or drug abuse patient.[facility] HospitalIn the event this information is protected by the Federal Confidentiality of Alcohol and Drug Abuse Patient Records regulations: The Federal rules restrict any use of the information to criminally investigate or prosecute any alcohol or drug abuse patient.[facility] HospitalIn the event this information is protected by the Federal Confidentiality of Alcohol and Drug Abuse Patient Records regulations: The Federal rules restrict any use of the information to criminally investigate or prosecute any alcohol or drug abuse patient.[facility] HospitalIn the event this information is protected by the Federal Confidentiality of Alcohol and Drug Abuse Patient Records regulations: The Federal rules restrict any use of the information to criminally investigate or prosecute any alcohol or drug abuse patient.[facility] HospitalIn the event this information is protected by the Federal Confidentiality of Alcohol and Drug Abuse Patient Records regulations: The Federal rules restrict any use of the information to criminally investigate or prosecute any alcohol or drug abuse patient.[facility] HospitalIn the event this information is protected by the Federal Confidentiality of Alcohol and Drug Abuse Patient Records regulations: The Federal rules restrict any use of the information to criminally investigate or prosecute any alcohol or drug abuse patient.[facility] Scheduled Active and Recently Administ ered [...] BE BASED ON THE PRIMARY CLINICAL RECORDS. [employer] provides no warranty or guarantee of the accuracy or completeness of information in this document.
[2025-01-31 12:05] LABS: Hematocrit 39.7 % (36.0-48.0); Hemoglobin 13.5 g/dL (12.0-16.0); Immature Granulocytes Abs Auto 0.02 10^3/uL (0.00-0.03); Immature Granulocytes Pct Auto 0.3 % (0.0-0.5); Lymphocytes Absolute Auto 2.7 10^3/uL (1.2-3.8); Mean Corpuscular HGB Conc 34.0 g/dL (29.9-35.2); Mean Corpuscular Hemoglobin 31.9 pg (26.7-34.0); Mean Corpuscular Volume 93.9 fL (81.0-99.0); Platelet Count 188 10^3/uL (150-450); Red Blood Count 4.23 10^6/uL (4.20-5.40); White Blood Count 6.1 10^3/uL (4.0-11.0)
[2025-01-31] MEDS: 0.9 % SODIUM CHLORIDE 1,000 ML 1000 ML IV ×2 (12:14→13:48)
[2025-01-31] MEDS: DIPHENHYDRAMINE HCL 50 MG/ML VIAL 25 MG IVP (12:15)
[2025-01-31] MEDS: MORPHINE SULFATE 4 MG/ML VIAL IV (12:15)
[2025-01-31 12:22] LABS: Anion Gap 11.0; Blood Urea Nitrogen 10.0 mg/dL (7.0-18.0); Calcium 8.4 mg/dL (8.5-10.1); Carbon Dioxide 26.2 mmol/L (21.0-32.0); Chloride 107 mmol/L (98-107); Estimated GFR (African America >60 (>=60 mL/min/1.73m^2); Estimated GFR (Non-African Ame >60 (>=60 mL/min/1.73m^2); Glucose 87 mg/dL (74-106); Potassium 4.2 mmol/L (3.5-5.1); Sodium 140 mmol/L (136-145)
[2025-01-31 12:36] LABS: Glucose Urine UA NEGATIVE (NEGATIVE)
[2025-01-31 12:46] LABS: Cast Seen? NONE SEEN #/LPF (NONE SEEN); Crystals Seen? None Seen #/HPF (None Seen); Urine Culture Indicated YES-FRMC
--- NOTE | 2025-01-31 13:28 | CT_ITS ---
The [address] [address] Patient Name: TICO ENRIQUEZ MRN: [id number] date: 1990 Sex: F Assigned Patient Location: ER Current Patient Location: ER Accession/Order Number: [id number] Exam Date: 01/31/2025 13:34 Report Date: 01/31/2025 13:59 At the request of: JOSE RAMON LOCO MD Procedure: CT head/brain wo con CT BRAIN WITHOUT CONTRAST: CLINICAL HISTORY: [place] COMPARISON: CT brain 08/13/2022 TECHNIQUE: Contiguous axial unenhanced images were obtained through the brain. This CT exam was performed using one or more following dose reduction techniques: Automated exposure control, adjustment of the mA and/or kV according to patient size, or use of iterative reconstruction technique. FINDINGS: There is no evidence of midline shift, intra or extra-axial fluid collection, hemorrhage or CT evidence of stroke. Posterior fossa appears unremarkable. Visualized intraorbital contents demonstrate no acute findings. Visualized paranasal sinuses are clear. The surrounding soft tissues are normal. CT/CT head/brain wo con IMPRESSION: NO ACUTE INTRACRANIAL ABNORMALITY. Impression dictated by: Luis Turner Jr., D.O. 01/31/2025 1:59 PM Dictation Location: [place] [address] Electronically authenticated by: [id number] Date: 01/31/2025 13:59
== END 2025-01-31 14:38 | disposition home or self-care (01) ==
PROVIDERS: Emergency Provider Emergency Medicine; PCP Family Medicine
DX: R51.9 Headache, unspecified (principal); R30.0 Dysuria; R35.0 Frequency of micturition; R00.2 Palpitations
CPT/HCPCS: 36415; 70450; 80048; 81001; 85025; 87086; 93005; 96361; 96374; 96375; 99285; J1200; J2270; J2405